=== PATIENT | female | born 1970 ===

== ENCOUNTER 2020-03-25 12:46 | Outpatient (RCR) | payer MEDICAID, SELFPAY | END 2020-05-05 16:30 | disposition home or self-care (01) | LOC: HO.WCC 12:46 | PROVIDERS: PCP Pediatrics; Visit Provider Surgery | DX: L02.612 Cutaneous abscess of left foot (principal); E11.9 Type 2 diabetes mellitus without complications; F17.200 Nicotine dependence, unspecified, uncomplicated; Z79.2 Long term (current) use of antibiotics | CPT/HCPCS: 10061; 99212; 99213 ==

== ENCOUNTER 2020-04-21 22:26 | Emergency (ER) | payer MEDICAID, SELFPAY ==
[2020-04-21 22:34] VITALS: BP 214/104; PULSE 108; RESP 22; TEMP 36.7; O2SAT 100; BMI 28.3
[2020-04-21 22:54] VITALS: BP 216/105; PULSE 114; RESP 18; TEMP 37.3; O2SAT 100
[2020-04-21 23:09] LABS: Glucose, Whole Blood 228 mg/dL (60-115)
[2020-04-22] VITALS: BP 182/85; PULSE 104; RESP 16; TEMP 37.7; O2SAT 100
--- NOTE | 2020-04-22 | ED.DENTAL ---
HPI - Dental/Oral General Chief complaint: Dental/Oral Stated complaint: JAW PAIN Time Seen by Provider: 04/21/20 23:50 Source: patient Mode of arrival: ambulatory Limitations: no limitations History of Present Illness HPI Narrative: 49-year-old female with widespread dental decay, patient is following with a dentist for complete extraction of her teeth because the COVID outbreak situation her surgical extraction got postponed it, patient started to have lower right side dental pain since yesterday that progressively getting worse all day today, patient describes the pain as severe /10, sharp, no colitis to the right lower show area, nothing alleviate or worsening the pain, no other associated symptoms in particular fever or chills. Patient has a history of hypertension does not recall her hypertension medication takes a medicine twice a day patient did not take her evening dose today, patient emergency department showed severe elevation of blood pressure. Related Data Previous Rx's Medication Instructions Recorded clindamycin HCl 150 mg PO TID 10 Days #30 cap 04/22/20 oxycodone 5 mg PO Q4H PRN #14 cap 04/22/20 Allergies Allergy/AdvReac Type Severity Reaction Status Date / Time Penicillins [PENICILLINS] Allergy Severe RASH Verified 04/21/20 22:53 amoxicillin [AMOXICILLIN] Allergy Intermediate HIVES Verified 04/21/20 22:53 Review of Systems Review of Systems: All other systems are reviewed and are negative Constitutional: Reports as per HPI and Reports no additional constitutional complaints Eyes: Reports as per HPI and Reports no additional eye complaints Reports system reviewed and no additional complaints, except as documented Cardiovascular: Reports as per HPI and Reports no additional cardiovascular complaints Respiratory: Reports as per HPI and Reports no additional respiratory complaints Gastrointestinal: Reports as per HPI and Reports no additional gastrointestinal complaints Genitourinary: Reports no additional female genitourinary complaints Musculoskeletal: Reports no additional musculoskeletal complaints Skin/Breast: Reports system reviewed and no additional complaints, except as docu Psychiatric: Reports no additional psychiatric complaints Endocrine: Reports no additional endocrine complaints Hematologic/Lymphatic: Reports no additional hematologic/lymphatic complaints Allergic/Immunologic: Reports no additional allergic/immunologic complaints Reports system reviewed and no additional complaints, except as documented and Reports Abnormal speech present [facility] Social History Social History Alcohol intake: current Smoking Status: Current every day smoker Use of substances other than those prescribed or required for medical reasons: No Advance Directives: No Advance Directives Information Provided: No Physical Exam Vital Signs: Vital Signs: Last Vital Signs Temp 99.8 F 04/22/20 00:00 Pulse 104 H 04/22/20 00:00 Resp 16 04/22/20 00:00 BP 182/85 H 04/22/20 00:00 Pulse Ox 100 04/22/20 00:00 Body Mass Index 28.3 Vital signs have been reviewed as normal and appeared to be correct. Severe hypertension. Tachycardia. Respiration rate normal. Temperature normal. Oxygen saturation normal. Appearance: Alert. Oriented X3. in acute distress due to severe dental pain Head: Normal external exam. Normocephalic. Atraumatic. No Witt signs noted. No raccoon eyes noted. Mouth exam: Widespread decay of teeth, pain over right lower 2nd molar tooth, no gum swelling but severe tenderness no abscesses appreciated, majority of her toes are extracted. Eyes: PERRLA. EOMI. Conjunctiva and sclera normal. Eyelids normal. ENT: EAC normal. TM's Normal. Pharynx normal. Uvula midline. Moist mucous membranes. No trismus noted. No drooling noted. No muffled voice noted. Neck: Normal inspection. Neck supple. FROM. No adenopathy. Thyroid Normal. No meningeal signs. No neck mass noted. CVS: Normal heart rate and rhythm. Heart sound normal. No murmurs noted. Pulses normal throughout. Respiratory: No respiratory distress. Painless inspiration. Breath sounds normal. No wheezes/rales/rhonchi noted. Chest nontender. No accessory muscle usage noted or decreased air movement noted. Abdomen: Soft and nontender. Bowel sounds normal in all 4 quadrants. No distention noted. No organomegaly noted. No visible injury noted. Back: No CVA tenderness. Full range of motion noted. Skin: Skin warm and dry. Normal skin color. Normal skin turgor. No rashes/lesions/lacerations noted. Extremities: No lower extremity edema. Extremities exhibit normal range of motion. Extremities nontender. Neuro: Oriented X 3. No motor deficit. No sensory deficit. Reflexes normal. Course Course Course Narrative: Dental pain causing severe discomfort of the patient and elevation for blood pressure. Will give pain medication and keep monitoring blood pressure. Will reassess. MDM - Dental/Oral MDM Narrative Medical decision making narrative: Assessment and plan. 49-year-old female presented with dental pain causing elevation of blood pressure (patient had a history of hypertension). Patient was given several doses of pain medication was partial control of her pain and blood pressure under better control. Patient was instructed to follow-up with her dentist ROSARIO. And to take her 2nd dose of blood pressure medication when she gets home, patient's will drive her home. Lab Data Labs: Lab Results 04/21/20 Range/Units 23:05 POC Glucose 228 H (60-115) mg/dL Discharge Plan Discharge Clinical Impression: Toothache, Dental caries Hypertension Qualifiers: Hypertension type: essential hypertension Qualified Code(s): I10 - Essential (primary) hypertension Patient Disposition: Home, Self-Care Instructions: Hypertension (ED), Toothache (ED), Gingivostomatitis (ED) Prescriptions: New oxycodone 5 mg capsule 5 mg PO Q4H PRN (Reason: pain) Qty: 14 RF: 0 clindamycin HCl 150 mg capsule 150 mg PO TID 10 Days Qty: 30 RF: 0
[2020-04-22] MEDS: Ibuprofen 800 MG TABLET PO (00:21)
[2020-04-22] MEDS: HYDROmorphone HCl 2 MG TABLET PO (00:22)
[2020-04-22] MEDS: HYDROmorphone HCl 2 MG/ML VIAL IM (01:19)
[2020-04-22] MEDS: Ketorolac Tromethamine 60 MG/2 ML VIAL IM (01:19)
== END 2020-04-22 01:20 | disposition home or self-care (01) ==
PROVIDERS: Emergency Provider Emergency Medicine
DX: K02.9 Dental caries, unspecified (principal); R68.84 Jaw pain; Z79.899 Other long term (current) drug therapy; Z20.828 Contact with and (suspected) exposure to other viral communicable diseases; F17.200 Nicotine dependence, unspecified, uncomplicated; Z71.6 Tobacco abuse counseling
CPT/HCPCS: 82947; 96372; 99284; J1170; J1885

== ENCOUNTER 2020-04-23 19:35 | Emergency (ER) | payer MEDICAID, SELFPAY ==
[2020-04-23 19:59] VITALS: BP 166/94; PULSE 134; RESP 24; TEMP 38.3; O2SAT 95; BMI 56.6
--- NOTE | 2020-04-23 20:14 | PC.NURSE ---
EKG obtained, charge operator informed of sepsis alert.
== END 2020-04-23 21:27 | disposition left against medical advice (07) ==
PROVIDERS: Emergency Provider Emergency Medicine
DX: R10.9 Unspecified abdominal pain (principal); R11.0 Nausea
CPT/HCPCS: 99282; 99283

== ENCOUNTER 2020-06-23 14:38 | Emergency (ER) | payer MEDICAID, SELFPAY ==
[2020-06-23 14:53] VITALS: BP 176/73; BP 176/90; PULSE 110; PULSE 95; RESP 22; TEMP 36.8; O2SAT 100; O2SAT 98; BMI 28.3
[2020-06-23 15:39] VITALS: BP 194/101; PULSE 101; RESP 15; TEMP 36.6; O2SAT 99
--- NOTE | 2020-06-23 15:51 | ECG_ITS ---
Test Reason : Chest pain Blood Pressure : / mmHG Vent. Rate : 103 BPM Atrial Rate : 103 BPM P-R Int : 146 ms QRS Dur : 084 ms QT Int : 390 ms P-R-T Axes : 075 053 076 degrees QTc Int : 510 ms Sinus tachycardia Otherwise normal ECG When compared with ECG of 23-APR-2020 20:11, ST no longer depressed in Inferior leads T wave inversion no longer evident in Inferior leads Referred By: Raphael Sneed Electronically Signed By:LUANN SALAZAR MD
--- NOTE | 2020-06-23 15:58 | ED.GENADULT ---
HPI - General Adult General Chief complaint: Abdominal Pain Stated complaint: urinary retention Time Seen by Provider: 06/23/20 15:49 Source: patient Mode of arrival: ambulatory Limitations: no limitations History of Present Illness HPI narrative: 49-year-old female who presents emergency department for evaluation of chest pain abdominal pain and urinary frequency. The patient states that she has been feeling sick for approximately 3 days. She states that she is having severe abdominal pain. She points to her lower abdomen asked to localize the pain. She describes the pain as a constant, cramping pain which is 10/10. She has had dysuria and urinary frequency. She states that she saw her doctor 2 days prior was started on antibiotic which improved her frequency and dysuria but did not change abdominal pain. She states she has had nausea and vomiting. She has vomited too many times to count. She is also complaining of chest pain which began today. She points to her mid sternum when asked to localize the pain the pain is a sharp pain which is worse with movement and with breathing. She denied shortness of breath, dyspnea on exertion, radiation of the pain to her neck, jaw or arms, diaphoresis or lightheadedness. Related Data Previous Rx's Medication Instructions Recorded clindamycin HCl 150 mg PO TID 10 Days #30 cap 04/22/20 oxycodone 5 mg PO Q4H PRN #14 cap 04/22/20 Allergies Allergy/AdvReac Type Severity Reaction Status Date / Time Penicillins [PENICILLINS] Allergy Severe RASH Verified 04/21/20 22:53 amoxicillin [AMOXICILLIN] Allergy Intermediate HIVES Verified 04/21/20 22:53 Review of Systems Review of Systems: Yes all other systems are reviewed and are negative Neurologic: Reports Abnormal speech present [facility] Past Medical History Medical History Diabetes Heart problem Hypertension Social History Social History Alcohol intake: never Smoking Status: Current every day smoker Smoked in Last 30 Days: Yes Use of substances other than those prescribed or required for medical reasons: No Advance Directives: No Advance Directives Information Provided: Yes Physical Exam Vital Signs: Vital Signs: Last Vital Signs Temp 98 F 06/23/20 15:39 Pulse 101 H 01/12/21 15:39 Resp 15 06/23/20 15:39 BP 194/101 H 06/23/20 15:39 Pulse Ox 99 06/23/20 15:39 Body Mass Index 28.3 Const: General: cooperative, in distress (Secondary to pain) moderate and anxious Orientation/consciousness: oriented to person and oriented to place Limitations: no limitations HENMT: Head: Yes normal to inspection, Yes normocephalic and Yes atraumatic Ears: external ears normal General nose exam: Normal external nose present Face and sinus: Yes normal facial exam Mouth: Normal oral and palatal mucosa present Throat: Yes posterior oropharynx normal Eyes: Periorbital: periorbital findings normal Eyelids: Yes eyelids normal Conjunctivae: conjunctivae normal Sclerae: sclerae normal Corneas: corneas normal Pupils: Equal, round and reactive pupils present Direct Ophthalmoscopy: normal light reflex Neck: Neck: Yes full ROM, Yes no lymphadenopathy, Yes no meningeal signs, Yes trachea midline and Yes supple Chest: Chest palpation & inspection: normal inspection of the chest and tenderness sternum (Moderate) Resp: Effort & Inspection: normal respiratory effort and able to speak in complete sentences Auscultation: clear to auscultation bilaterally Cardio: Rate: regular rate Rhythm: regular rhythm Heart sounds: S1 normal heart sound present, S2 normal heart sound present and no murmurs GI: Inspection: Yes normal to inspection Palpation (GI): Soft to palpation, Tenderness to palpation present (GI) in the LLQ (Mild), in the RLQ (Mild) and suprapubicly (Moderate), no guarding, not rigid and No hepatosplenomegaly present : General: Yes CVA tenderness on the left Back/Spine/Pelvis: Back: CVA tenderness Cervical Spine: normal cervical lordosis Thoracic/Lumbar Spine: thoracic and lumbar spine normal to inspection Skin: Lesions: no lesions Rashes: no rashes Wounds: no wounds Neuro: General: oriented to person, oriented to place and no meningeal signs Cranial nerves: Yes Equal, round and reactive pupils present Cognition (Neuro): normal cognition Speech: Abnormal speech present Motor exam (neuro): 5/5 motor strength present throughout Extrem: General: Yes normal to inspection and Yes full ROM Psych: Appearance: disheveled Mental Status: mental status grossly normal Speech and movement: Normal speech and movement present Affect: Anxious affect present Attitude: cooperative Thought process: Normal thought process present Thought content: Normal thought content present Course Course Course Narrative: 49-year-old female who presents the emergency department for evaluation of 3 days of abdominal pain, nausea, vomiting, frequency, urgency and dysuria. She is also complaining of chest pain x1 day. She states that she has been on antibiotics for 2 days and is approved for frequency and diarrhea but not her other symptoms. On presentation the patient was very anxious. The patient did have lower abdominal tenderness greater in the suprapubic area as well as left flank tenderness. Patient also had chest tenderness. I did order a cardiac and abdominal workup to include CT scan of abdomen pelvis without contrast. The patient was ordered to get Toradol 30 mg IV for her pain and Ativan 1 mg IV for her anxiety and her nausea. She was ordered to get normal saline x1 L. 1626: Patient's workup is pending the patient's care was transferred to my colleague, Dr. Burden. Discharge Plan Discharge Prescriptions: No Action oxycodone 5 mg capsule 5 mg PO Q4H PRN (Reason: pain) Qty: 14 RF: 0 clindamycin HCl 150 mg capsule 150 mg PO TID 10 Days Qty: 30 RF: 0
[2020-06-23 16:00] VITALS: BP 202/93; PULSE 102; RESP 17; TEMP 36.8; O2SAT 93
[2020-06-23] MEDS: Ketorolac Tromethamine 30 MG/ML VIAL IVPUSH (16:26)
[2020-06-23] MEDS: LORazepam 2 MG/ML VIAL 1 MG IVPUSH (16:27)
[2020-06-23] MEDS: 0.9 % Sodium Chloride 1,000 ML 999 ML IV (16:27)
[2020-06-23 17:00] LABS: Glucose Urine UA 500 MG/DL (NEG); Leukocyte Esterase Urine NEG (NEG); Nitrite Urine NEG (NEG); Specific Gravity - Urine 1.015 (1.005-1.025); Urine Blood 1+ (NEG); Urine Ketones >=80 MG/DL (NEG); Urine Protein 2+ MG/DL (NEG-TRACE)
[2020-06-23 17:02] LABS: Eosinophils Percent Auto 0.1 % (0-4); Hematocrit 39.1 % (37-47); Hemoglobin 12.5 g/dl (12.0-16.0); MANUAL DIFF FLAG SCAN; Mean Corpuscular Hemoglobin 25.8 pg (27.0-33.0); Mean Corpuscular Volume 80.6 fL (80-98); Monocytes Absolute Auto 0.6 X10*3/uL (0.1-1.2); Red Blood Count 4.85 X10*6/uL (4.20-5.50); SCAN SMEAR FLAG 1
[2020-06-23 17:03] LABS: Appearance Urine CLEAR; Color Urine YELLOW
[2020-06-23 17:04] LABS: Basophils Percent Auto 0.3 % (0-2); Imm Gran Abs Auto 0.03 X10*3/uL (0.00-0.03); Imm Gran Pct Auto 0.3 % (0.0-0.4); Lymphocytes Absolute Auto 0.6 X10*3/uL (1.2-4.9); Lymphocytes Percent Auto 6.3 % (20-40); Mean Platelet Volume 12.9 fL (9.4-12.3); Monocytes Percent Auto 6.3 % (2-11); Neutrophils Absolute Auto 7.5 X10*3/uL (2.0-8.3); Neutrophils Percent Auto 86.7 % (45-73); Red Cell Distribution Width 14.6 % (11.0-16.0); White Blood Count 8.7 X10*3/uL (4.8-10.8)
[2020-06-23 17:29] LABS: Bacteria Urine TRACE /LPF; Squamous Epithelial Cell Urine TRACE /LPF
[2020-06-23 17:32] LABS: Troponin-I High Sensitivity 7.7 ng/L (<3.5-17.0)
[2020-06-23 17:40] LABS: PLT ABN DIST 1
[2020-06-23 17:42] LABS: Alanine Aminotransferase 11 U/L (0-31); Albumin Level 3.5 g/dL (3.5-5.0); Alkaline Phosphatase 89 U/L (39-117); Anion Gap 20 (12-20); Aspartate Amino Transferase 8 U/L (5-31); Bilirubin Total 0.7 mg/dL (0.0-1.0); Blood Urea Nitrogen 13 mg/dL (9-16); Calcium 8.2 mg/dL (8.4-10.2); Carbon Dioxide 28 mmol/L (22-29); Chloride 96 mmol/L (96-108); Creatinine Clr Calc Pharmacy 76.3; Estimated Glomerular Filt Rate > 60; Glucose Random 477 mg/dL (60-115); Lipase < 4 U/L (8-78); Potassium 3.8 mmol/l (3.3-5.1); Sodium 140 mmol/L (135-145)
[2020-06-23 17:43] LABS: SLIDE REVIEW VERIFIED
--- NOTE | 2020-06-23 18:08 | XR_ITS ---
EXAMINATION: CHEST X-RAY AND CT ABDOMEN AND PELVIS WITHOUT CONTRAST. CLINICAL INFORMATION: Chest pain. Intractable vomiting and upper abdominal pain. COMPARISON: CT abdomen and pelvis 02/05/2020 TECHNIQUE: Chest one view. 5 mm thin axial and reformatted 3 mm thin axial images of abdomen and pelvis were obtained without contrast. DLP 611 FINDINGS: Chest: The lungs are well-expanded and clear of acute process. The heart size and pulmonary vascularity is normal. No gross bony abnormality seen. Abdomen and pelvis: The lung bases are clear. The heart size is normal. Punctate calcification is seen in left lateral breast. Visualized liver, spleen, pancreas and right adrenal gland appears unremarkable. There is a 1.3 cm left adrenal gland nodule measuring 7 Hounsfield units most likely benign adenoma. There are no radiopaque gallstones or wall thickening. Kidneys are normal size, shape and position. There are bilateral small nonobstructive radiopaque calculi seen in upper pole right kidney. There is mild right hydronephrosis no radiopaque urolith seen. There are several phleboliths visualized in the right lower pelvis. There is scattered stool and gas seen throughout the colon without any significant distention. The small bowel loops are normal caliber. Appendix is normal caliber. No free air or free fluid seen. Abdominal wall appears unremarkable. Imaging through the pelvis reveals anteverted uterus. Both ovaries appear unremarkable. There is no free fluid in the cul-de-sac. Bone windows reveal no lytic or sclerotic process. XR/XR chest 1V IMPRESSION: Right nephrolithiasis with mild right hydronephrosis but no obstructive etiology seen. A small stone is a possibility in the distal ureter but not visualized. A outpatient CT IVP study can be performed. Left adrenal benign adenoma. Several phleboliths in the right kidney pelvis. Normal appendix. Mild constipation.
[2020-06-23] MEDS: Insulin Lispro 100 UNIT/ML 3 ML VIAL 14 UNIT SUBCUT (18:20)
[2020-06-23] MEDS: 0.9 % Sodium Chloride 1,000 ML 999 ML IVCONT (18:20)
[2020-06-23] MEDS: ondansetron HCL 4 MG/2 ML VIAL IVPUSH (18:53)
--- NOTE | 2020-06-23 19:09 | ED.ABDPAIN ---
HPI - Abdominal Pain General Chief Complaint: Abdominal Pain Stated Complaint: urinary retention Time Seen by Provider: 06/23/20 15:49 History of Present Illness Pertinent past history: past UTI Radiation: back Related Data Previous Rx's Medication Instructions Recorded clindamycin HCl 150 mg PO TID 10 Days #30 cap 04/22/20 oxycodone 5 mg PO Q4H PRN #14 cap 04/22/20 Allergies Allergy/AdvReac Type Severity Reaction Status Date / Time Penicillins [PENICILLINS] Allergy Severe RASH Verified 04/21/20 22:53 amoxicillin [AMOXICILLIN] Allergy Intermediate HIVES Verified 04/21/20 22:53 Physical Exam Vital Signs: Vital Signs: Last Vital Signs Temp 98.2 F 06/23/20 16:00 Pulse 102 H 06/23/20 16:00 Resp 17 06/23/20 16:00 BP 202/93 H 06/23/20 16:00 Pulse Ox 93 06/23/20 16:00 Body Mass Index 28.3 Appearance: Alert. Oriented X3. In moderate distress. Eyes: Pupils equal, round and reactive to light. ENT: Pharynx normal. Neck: Normal inspection. Neck supple. CVS: Normal heart rate and rhythm. Pulses normal. Respiratory: No respiratory distress. Breath sounds normal. Abdomen: Soft deep tenderness left lower quadrant, Bowel sounds are present, no mass palpable, no CVA tenderness Skin: Skin warm and dry. Normal skin color. Normal skin turgor. Extremities: No lower extremity edema. Neuro: Oriented X 3. No motor deficit. No sensory deficit. MDM - Abdominal Pain Lab Data Result diagrams: 06/23/20 16:45 06/23/20 16:45 Labs: Lab Results 06/23/20 06/23/20 06/23/20 Range/Units 16:45 16:45 16:45 WBC 8.7 (4.8-10.8) X10*3/uL RBC 4.85 (4.20-5.50) X10*6/uL Hgb 12.5 (12.0-16.0) g/dl Hct 39.1 (37-47) % MCV 80.6 (80-98) fL MCH 25.8 L (27.0-33.0) pg MCHC 32.0 (31.0-35.0) g/dl RDW 14.6 (11.0-16.0) % Plt Count TNP MPV 12.9 H (9.4-12.3) fL Immature Gran % (Auto) 0.3 (0.0-0.4) % Neut % (Auto) 86.7 H (45-73) % Lymph % (Auto) 6.3 L (20-40) % [place] % (Auto) 6.3 (2-11) % Eos % (Auto) 0.1 (0-4) % Baso % (Auto) 0.3 (0-2) % Lymph # (Auto) 0.6 L (1.2-4.9) X10*3/uL [place] # (Auto) 0.6 (0.1-1.2) X10*3/uL Eos # (Auto) 0.0 (0.0-0.4) X10*3/uL Baso # (Auto) 0.0 (0.0-0.2) X10*3/uL Abs Immat Gran (auto) 0.03 (0.00-0.03) X10*3/uL Absolute Neuts (auto) 7.5 (2.0-8.3) X10*3/uL Absolute Nucleated RBC 0.000 (0.0-0.012) X10*3/uL Nucleated RBC % (auto) 0.0 (0.0-0.2) /100WBC Smear Tech's Comments VERIFIED Sodium 140 (135-145) mmol/L Potassium 3.8 (3.3-5.1) mmol/l Chloride 96 (96-108) mmol/L Carbon Dioxide 28 (22-29) mmol/L Anion Gap 20 (12-20) BUN 13 (9-16) mg/dL Creatinine 0.86 (0.5-1.4) mg/dL Estim Creat Clear Calc 76.3 Estimated GFR > 60 POC Glucose (60-115) mg/dL Random Glucose 477 H* (60-115) mg/dL Calcium 8.2 L (8.4-10.2) mg/dL Total Bilirubin 0.7 (0.0-1.0) mg/dL AST 8 (5-31) U/L ALT 11 (0-31) U/L Alkaline Phosphatase 89 (39-117) U/L Troponin I High Sens 7.7 (<3.5-17.0) ng/L Total Protein 6.0 L (6.5-8.0) g/dL Albumin 3.5 (3.5-5.0) g/dL Lipase < 4 L (8-78) U/L Urine Color Urine Appearance Urine pH (5.0-8.0) Ur Specific [place] (1.005-1.025) Urine Protein (NEG-TRACE) MG/DL Urine Glucose (UA) (NEG) MG/DL Urine Ketones (NEG) MG/DL Urine Blood (NEG) Urine Nitrite (NEG) Ur Leukocyte Esterase (NEG) Urine RBC (0) /HPF Urine WBC (0-4) /HPF Ur Squamous Epith Cells /LPF Urine Bacteria /LPF Urine Yeast /HPF 06/23/20 06/23/20 Range/Units 16:45 19:19 WBC (4.8-10.8) X10*3/uL RBC (4.20-5.50) X10*6/uL Hgb (12.0-16.0) g/dl Hct (37-47) % MCV (80-98) fL MCH (27.0-33.0) pg MCHC (31.0-35.0) g/dl RDW (11.0-16.0) % Plt Count MPV (9.4-12.3) fL Immature Gran % (Auto) (0.0-0.4) % Neut % (Auto) (45-73) % Lymph % (Auto) (20-40) % [place] % (Auto) (2-11) % Eos % (Auto) (0-4) % Baso % (Auto) (0-2) % Lymph # (Auto) (1.2-4.9) X10*3/uL [place] # (Auto) (0.1-1.2) X10*3/uL Eos # (Auto) (0.0-0.4) X10*3/uL Baso # (Auto) (0.0-0.2) X10*3/uL Abs Immat Gran (auto) (0.00-0.03) X10*3/uL Absolute Neuts (auto) (2.0-8.3) X10*3/uL Absolute Nucleated RBC (0.0-0.012) X10*3/uL Nucleated RBC % (auto) (0.0-0.2) /100WBC Smear Tech's Comments Sodium (135-145) mmol/L Potassium (3.3-5.1) mmol/l Chloride (96-108) mmol/L Carbon Dioxide (22-29) mmol/L Anion Gap (12-20) BUN (9-16) mg/dL Creatinine (0.5-1.4) mg/dL Estim Creat Clear Calc Estimated GFR POC Glucose 332 H (60-115) mg/dL Random Glucose (60-115) mg/dL Calcium (8.4-10.2) mg/dL Total Bilirubin (0.0-1.0) mg/dL AST (5-31) U/L ALT (0-31) U/L Alkaline Phosphatase (39-117) U/L Troponin I High Sens (<3.5-17.0) ng/L Total Protein (6.5-8.0) g/dL Albumin (3.5-5.0) g/dL Lipase (8-78) U/L Urine Color YELLOW Urine Appearance CLEAR Urine pH 6.0 (5.0-8.0) Ur Specific [place] 1.015 (1.005-1.025) Urine Protein 2+ H (NEG-TRACE) MG/DL Urine Glucose (UA) 500 H (NEG) MG/DL Urine Ketones >=80 (NEG) MG/DL Urine Blood 1+ H (NEG) Urine Nitrite NEG (NEG) Ur Leukocyte Esterase NEG (NEG) Urine RBC 1-4 (0) /HPF Urine WBC 1-4 (0-4) /HPF Ur Squamous Epith Cells TRACE /LPF Urine Bacteria TRACE /LPF Urine Yeast TRACE /HPF Discharge Plan Discharge Prescriptions: No Action oxycodone 5 mg capsule 5 mg PO Q4H PRN (Reason: pain) Qty: 14 RF: 0 clindamycin HCl 150 mg capsule 150 mg PO TID 10 Days Qty: 30 RF: 0 PMFSH Past Medical History Medical History Diabetes Heart problem Hypertension Social History Social History Alcohol intake: never Smoking Status: Current every day smoker Smoked in Last 30 Days: Yes Use of substances other than those prescribed or required for medical reasons: No Advance Directives: No Advance Directives Information Provided: Yes
[2020-06-23 19:22] LABS: Glucose, Whole Blood 332 mg/dL (60-115)
--- NOTE | 2020-06-23 19:34 | CT_ITS ---
EXAMINATION: CHEST X-RAY AND CT ABDOMEN AND PELVIS WITHOUT CONTRAST. CLINICAL INFORMATION: Chest pain. Intractable vomiting and upper abdominal pain. COMPARISON: CT abdomen and pelvis 02/05/2020 TECHNIQUE: Chest one view. 5 mm thin axial and reformatted 3 mm thin axial images of abdomen and pelvis were obtained without contrast. DLP 611 FINDINGS: Chest: The lungs are well-expanded and clear of acute process. The heart size and pulmonary vascularity is normal. No gross bony abnormality seen. Abdomen and pelvis: The lung bases are clear. The heart size is normal. Punctate calcification is seen in left lateral breast. Visualized liver, spleen, pancreas and right adrenal gland appears unremarkable. There is a 1.3 cm left adrenal gland nodule measuring 7 Hounsfield units most likely benign adenoma. There are no radiopaque gallstones or wall thickening. Kidneys are normal size, shape and position. There are bilateral small nonobstructive radiopaque calculi seen in upper pole right kidney. There is mild right hydronephrosis no radiopaque urolith seen. There are several phleboliths visualized in the right lower pelvis. There is scattered stool and gas seen throughout the colon without any significant distention. The small bowel loops are normal caliber. Appendix is normal caliber. No free air or free fluid seen. Abdominal wall appears unremarkable. Imaging through the pelvis reveals anteverted uterus. Both ovaries appear unremarkable. There is no free fluid in the cul-de-sac. Bone windows reveal no lytic or sclerotic process. CT/CT abdomen pelvis wo con IMPRESSION: Right nephrolithiasis with mild right hydronephrosis but no obstructive etiology seen. A small stone is a possibility in the distal ureter but not visualized. A outpatient CT IVP study can be performed. Left adrenal benign adenoma. Several phleboliths in the right kidney pelvis. Normal appendix. Mild constipation.
[2020-06-23] MEDS: Insulin Lispro 100 UNIT/ML 3 ML VIAL 10 UNIT SUBCUT (19:36)
[2020-06-23] MEDS: Famotidine/PF 20 MG/2 ML VIAL IVPUSH (19:44)
[2020-06-23] MEDS: Prochlorperazine Edisylate 10 MG/2 ML VIAL IVPUSH (19:44)
[2020-06-23] MEDS: Magnesium Hydrox/Alum Hydrox 30 ML ORAL.SUSP PO (21:28)
[2020-06-23 21:45] LABS: Glucose, Whole Blood 275 mg/dL (60-115)
== END 2020-06-23 22:12 | disposition home or self-care (01) ==
PROVIDERS: Emergency Provider Emergency Medicine Emergency Medical Services
DX: R33.9 Retention of urine, unspecified (principal); R07.89 Other chest pain; R35.0 Frequency of micturition; R10.9 Unspecified abdominal pain; R11.2 Nausea with vomiting, unspecified; F17.200 Nicotine dependence, unspecified, uncomplicated; Z71.6 Tobacco abuse counseling; Z79.899 Other long term (current) drug therapy
CPT/HCPCS: 36415; 71045; 74176; 80053; 81001; 81003; 82947; 83690; 84484; 85025; 93005; 96361; 96374; 96375; 99284; J1885; J2060; J2405

== ENCOUNTER 2020-06-26 11:34 | Emergency (ER) | payer MEDICAID, SELFPAY ==
[2020-06-26 11:44] VITALS: BP 164/78; PULSE 94; RESP 18; TEMP 36.6; O2SAT 100; BMI 28.3
== END 2020-06-26 15:14 | disposition left against medical advice (07) ==
LOC: HO.ED 15:13
PROVIDERS: Emergency Provider Emergency Medicine
DX: R10.10 Upper abdominal pain, unspecified (principal); R11.2 Nausea with vomiting, unspecified
CPT/HCPCS: 99281; 99282

== ENCOUNTER 2020-07-01 19:58 | Emergency (ER) | payer MEDICAID, SELFPAY ==
[2020-07-01 19:59] VITALS: BP 176/89; PULSE 105; RESP 18; TEMP 36.5; O2SAT 100; BMI 29.2
--- NOTE | 2020-07-01 20:43 | ED.ABDPAIN ---
HPI - Abdominal Pain General Chief Complaint: Nausea/Vomiting/Diarrhea Stated Complaint: vomiting Time Seen by Provider: 07/01/20 20:34 Source: patient Mode of arrival: EMS Limitations: no limitations History of Present Illness HPI narrative: Patient diabetes with gastroparesis last time she was and came here was on 06/[address] scan abdomen which was negative comes here again for vomiting for last few days got worse today vomited about 10 times in the last few vomitus had some blood streaks patient was taking Macrobid for questionable UTI given by PCP and whenever she takes a medicine she started throwing up although urine analysis was negative MD elicited complaint: abdominal pain Pertinent past history: other (Gastroparesis) Onset (ago): week(s) (1) Pain Consistency: intermittent Location: epigastric Severity: mild Quality: dull Radiation: none Migration to: no migration Exacerbating factors: eating Relieving factors: nothing Associated symptoms: nausea and vomiting Related Data Previous Rx's Medication Instructions Recorded clindamycin HCl 150 mg PO TID 10 Days #30 cap 04/22/20 oxycodone 5 mg PO Q4H PRN #14 cap 04/22/20 metoclopramide HCl [Reglan] 10 mg PO Q6H PRN #60 tab 06/23/20 pantoprazole [Protonix] 40 mg PO DAILY #30 tab 06/23/20 Allergies Allergy/AdvReac Type Severity Reaction Status Date / Time Penicillins [PENICILLINS] Allergy Severe RASH Verified 04/21/20 22:53 amoxicillin [AMOXICILLIN] Allergy Intermediate HIVES Verified 04/21/20 22:53 Review of Systems Review of Systems Constitutional : No Weight loss, No Fever, No Chills ENT/Mouth : No sore throat, No Rhinorrhea Eyes: No Eye Pain, No Swelling Cardiovascular : No Chest Pain, no palpitations Respiratory : No Cough, No Sputum, no shortness of breath Gastrointestinal : + Nausea, + Vomiting, No Diarrhea, + abdominal Pain, no black stools Genitourinary : No Dysuria, No Urinary Frequency Musculoskeletal : No joint pain, No Myalgias, No Joint Swelling Skin : No Skin Lesions, No rash Neuro : No Weakness, No Numbness, No Dizziness, No Headache Psych : No Anxiety/Panic, No Depression Heme/Lymph: No Bruising, No Lymphadenopathy Endocrine : No Polyuria, No Polydipsia All other systems reviewed and are negative Physical Exam Vital Signs: Vital Signs: Last Vital Signs Temp 98.1 F 07/01/20 22:37 Pulse 101 H 07/01/20 22:37 Resp 18 07/01/20 22:37 BP 181/80 H 07/01/20 22:37 Pulse Ox 96 07/01/20 22:37 Body Mass Index 29.2 Appearance: Alert. Oriented X3. No acute distress. Eyes: Pupils equal, round and reactive to light. ENT: Pharynx normal. Neck: Normal inspection. Neck supple. CVS: Normal heart rate and rhythm. Pulses normal. Respiratory: No respiratory distress. Breath sounds normal. Abdomen: Soft mild epigastric tenderness, no rebound tenderness and no guarding. Bowel sounds are present, no mass palpable, no CVA tenderness Skin: Skin warm and dry. Normal skin color. Normal skin turgor. Extremities: No lower extremity edema. Neuro: Oriented X 3. No motor deficit. No sensory deficit. MDM - Abdominal Pain MDM Narrative Medical decision making narrative: Patient with diabetes gastroparesis came with vomiting for last few days taking Reglan were not working also she took Macrobid which causing or vomiting. On arrival patient's blood sugar was 444 as she missed her insulin today after insulin patient's blood sugar was 268 patient feeling much better now taking p.o. fluids will discharge patient home to be followed up with race relations professor Differential Diagnosis Differential diagnosis: Likely abdominal pain and gastritis Medical Records Attestation: I reviewed the patient's medical records. Lab Data Attestation: I reviewed the patient's lab results. Result diagrams: 07/01/20 21:14 07/01/20 21:14 Labs: Lab Results 07/01/20 07/01/20 07/01/20 Range/Units 21:14 21:14 21:14 WBC 8.8 (4.8-10.8) X10*3/uL RBC 4.50 (4.20-5.50) X10*6/uL Hgb 11.4 L (12.0-16.0) g/dl Hct 36.0 L (37-47) % MCV 80.0 (80-98) fL MCH 25.3 L (27.0-33.0) pg MCHC 31.7 (31.0-35.0) g/dl RDW 14.4 (11.0-16.0) % Plt Count 254 (160-400) X10*3/uL MPV 12.4 H (9.4-12.3) fL Immature Gran % (Auto) 0.5 H (0.0-0.4) % Neut % (Auto) 81.3 H (45-73) % Lymph % (Auto) 12.4 L (20-40) % [place] % (Auto) 5.0 (2-11) % Eos % (Auto) 0.6 (0-4) % Baso % (Auto) 0.2 (0-2) % Lymph # (Auto) 1.1 L (1.2-4.9) X10*3/uL [place] # (Auto) 0.4 (0.1-1.2) X10*3/uL Eos # (Auto) 0.1 (0.0-0.4) X10*3/uL Baso # (Auto) 0.0 (0.0-0.2) X10*3/uL Abs Immat Gran (auto) 0.04 H (0.00-0.03) X10*3/uL Absolute Neuts (auto) 7.2 (2.0-8.3) X10*3/uL Absolute Nucleated RBC 0.000 (0.0-0.012) X10*3/uL Nucleated RBC % (auto) 0.0 (0.0-0.2) /100WBC Sodium 141 (135-145) mmol/L Potassium 3.9 (3.3-5.1) mmol/l Chloride 99 (96-108) mmol/L Carbon Dioxide 32 H (22-29) mmol/L Anion Gap 14 (12-20) BUN 9 (9-16) mg/dL Creatinine 0.77 (0.5-1.4) mg/dL Estim Creat Clear Calc 86.5 Estimated GFR > 60 POC Glucose (60-115) mg/dL Random Glucose 444 H* (60-115) mg/dL Calcium 8.6 (8.4-10.2) mg/dL Total Bilirubin 0.3 (0.0-1.0) mg/dL Direct Bilirubin < 0.2 (0.0-0.5) mg/dL AST 10 (5-31) U/L ALT 24 (0-31) U/L Alkaline Phosphatase 92 (39-117) U/L Total Protein 6.0 L (6.5-8.0) g/dL Albumin 3.3 L (3.5-5.0) g/dL Lipase 23 (8-78) U/L Urine Color YELLOW Urine Appearance HAZY Urine pH 6.0 (5.0-8.0) Ur Specific [place] 1.025 (1.005-1.025) Urine Protein 2+ H (NEG-TRACE) MG/DL Urine Glucose (UA) >=1000 H (NEG) MG/DL Urine Ketones 5 (NEG) MG/DL Urine Blood 3+ H (NEG) Urine Nitrite NEG (NEG) Ur Leukocyte Esterase NEG (NEG) Urine RBC 1-4 (0) /HPF Urine WBC 5-9 H (0-4) /HPF Ur Squamous Epith Cells TRACE /LPF Urine Bacteria 3+ /LPF 07/01/20 Range/Units 23:36 WBC (4.8-10.8) X10*3/uL RBC (4.20-5.50) X10*6/uL Hgb (12.0-16.0) g/dl Hct (37-47) % MCV (80-98) fL MCH (27.0-33.0) pg MCHC (31.0-35.0) g/dl RDW (11.0-16.0) % Plt Count (160-400) X10*3/uL MPV (9.4-12.3) fL Immature Gran % (Auto) (0.0-0.4) % Neut % (Auto) (45-73) % Lymph % (Auto) (20-40) % [place] % (Auto) (2-11) % Eos % (Auto) (0-4) % Baso % (Auto) (0-2) % Lymph # (Auto) (1.2-4.9) X10*3/uL [place] # (Auto) (0.1-1.2) X10*3/uL Eos # (Auto) (0.0-0.4) X10*3/uL Baso # (Auto) (0.0-0.2) X10*3/uL Abs Immat Gran (auto) (0.00-0.03) X10*3/uL Absolute Neuts (auto) (2.0-8.3) X10*3/uL Absolute Nucleated RBC (0.0-0.012) X10*3/uL Nucleated RBC % (auto) (0.0-0.2) /100WBC Sodium (135-145) mmol/L Potassium (3.3-5.1) mmol/l Chloride (96-108) mmol/L Carbon Dioxide (22-29) mmol/L Anion Gap (12-20) BUN (9-16) mg/dL Creatinine (0.5-1.4) mg/dL Estim Creat Clear Calc Estimated GFR POC Glucose 268 H (60-115) mg/dL Random Glucose (60-115) mg/dL Calcium (8.4-10.2) mg/dL Total Bilirubin (0.0-1.0) mg/dL Direct Bilirubin (0.0-0.5) mg/dL AST (5-31) U/L ALT (0-31) U/L Alkaline Phosphatase (39-117) U/L Total Protein (6.5-8.0) g/dL Albumin (3.5-5.0) g/dL Lipase (8-78) U/L Urine Color Urine Appearance Urine pH (5.0-8.0) Ur Specific [place] (1.005-1.025) Urine Protein (NEG-TRACE) MG/DL Urine Glucose (UA) (NEG) MG/DL Urine Ketones (NEG) MG/DL Urine Blood (NEG) Urine Nitrite (NEG) Ur Leukocyte Esterase (NEG) Urine RBC (0) /HPF Urine WBC (0-4) /HPF Ur Squamous Epith Cells /LPF Urine Bacteria /LPF Discharge Plan Discharge Clinical Impression: Diabetes mellitus with gastroparesis Vomiting Qualifiers: Vomiting type: unspecified Vomiting Intractability: non-intractable Nausea presence: with nausea Qualified Code(s): R11.2 - Nausea with vomiting, unspecified Patient Disposition: Home, Self-Care Instructions: Diabetic Gastroparesis (DC) Additional Instructions: Continue to take Reglan 1 hour prior you have your meals. Continue to take Protonix. Have small meals avoid fried and greasy food Follow-up with race relations professor Prescriptions: No Action oxycodone 5 mg capsule 5 mg PO Q4H PRN (Reason: pain) Qty: 14 RF: 0 clindamycin HCl 150 mg capsule 150 mg PO TID 10 Days Qty: 30 RF: 0 metoclopramide HCl [Reglan] 10 mg tablet 10 mg PO Q6H PRN (Reason: nausea and vomiting) Qty: 60 RF: 0 pantoprazole [Protonix] 40 mg tablet,delayed release (DR/EC) 40 mg PO DAILY Qty: 30 RF: 0 Referrals: Mine Heath MD [Physician] - 1 week [facility] Past Medical History Medical History Diabetes Heart problem Hypertension Social History Social History Alcohol intake: never Smoking Status: Current every day smoker Advance Directives: No Advance Directives Information Provided: No
[2020-07-01 21:18] LABS: MANUAL DIFF FLAG NO
[2020-07-01 21:19] LABS: Basophils Percent Auto 0.2 % (0-2); Eosinophils Absolute Auto 0.1 X10*3/uL (0.0-0.4); Eosinophils Percent Auto 0.6 % (0-4); Hemoglobin 11.4 g/dl (12.0-16.0); Imm Gran Abs Auto 0.04 X10*3/uL (0.00-0.03); Imm Gran Pct Auto 0.5 % (0.0-0.4); Lymphocytes Absolute Auto 1.1 X10*3/uL (1.2-4.9); Lymphocytes Percent Auto 12.4 % (20-40); Mean Corpuscular HGB Conc 31.7 g/dl (31.0-35.0); Mean Corpuscular Hemoglobin 25.3 pg (27.0-33.0); Mean Platelet Volume 12.4 fL (9.4-12.3); Monocytes Absolute Auto 0.4 X10*3/uL (0.1-1.2); Neutrophils Absolute Auto 7.2 X10*3/uL (2.0-8.3); Neutrophils Percent Auto 81.3 % (45-73); Platelet Count 254 X10*3/uL (160-400); Red Cell Distribution Width 14.4 % (11.0-16.0); White Blood Count 8.8 X10*3/uL (4.8-10.8)
[2020-07-01] MEDS: ondansetron HCL 4 MG/2 ML VIAL IVPUSH (21:19)
[2020-07-01] MEDS: 0.9 % Sodium Chloride 1,000 ML 999 ML IVCONT ×2 (21:19→22:40)
[2020-07-01] MEDS: Famotidine/PF 20 MG/2 ML VIAL IVPUSH (21:19)
[2020-07-01 21:21] LABS: Glucose Urine UA >=1000 MG/DL (NEG); Leukocyte Esterase Urine NEG (NEG); Nitrite Urine NEG (NEG); Specific Gravity - Urine 1.025 (1.005-1.025); Urine Blood 3+ (NEG); Urine Ketones 5 MG/DL (NEG); Urine Protein 2+ MG/DL (NEG-TRACE)
[2020-07-01 21:23] LABS: Appearance Urine HAZY; Color Urine YELLOW
[2020-07-01 21:33] LABS: Bacteria Urine 3+ /LPF; Squamous Epithelial Cell Urine TRACE /LPF; UACC CULT YES
[2020-07-01 22:04] LABS: Alanine Aminotransferase 24 U/L (0-31); Albumin Level 3.3 g/dL (3.5-5.0); Alkaline Phosphatase 92 U/L (39-117); Anion Gap 14 (12-20); Aspartate Amino Transferase 10 U/L (5-31); Bilirubin Direct < 0.2 mg/dL (0.0-0.5); Bilirubin Total 0.3 mg/dL (0.0-1.0); Blood Urea Nitrogen 9 mg/dL (9-16); Calcium 8.6 mg/dL (8.4-10.2); Carbon Dioxide 32 mmol/L (22-29); Chloride 99 mmol/L (96-108); Creatinine Clr Calc Pharmacy 86.5; Estimated Glomerular Filt Rate > 60; Glucose Random 444 mg/dL (60-115); Lipase 23 U/L (8-78); Potassium 3.9 mmol/l (3.3-5.1); Sodium 141 mmol/L (135-145)
[2020-07-01 22:37] VITALS: BP 181/80; PULSE 101; RESP 18; TEMP 36.7; O2SAT 96
[2020-07-01] MEDS: Insulin Lispro 100 UNIT/ML 3 ML VIAL 14 UNIT SUBCUT (22:41)
--- NOTE | 2020-07-01 22:59 | PC.NURSE ---
pt requested water, started with ice chips.
[2020-07-01 23:41] LABS: Glucose, Whole Blood 268 mg/dL (60-115)
[2020-07-02] VITALS: BP 176/84; PULSE 102; RESP 18; TEMP 36.6; O2SAT 97
== END 2020-07-02 00:19 | disposition home or self-care (01) ==
PROVIDERS: Emergency Provider Internal Medicine
DX: E11.43 Type 2 diabetes mellitus with diabetic autonomic (poly)neuropathy (principal); K31.84 Gastroparesis; R11.2 Nausea with vomiting, unspecified; Z79.899 Other long term (current) drug therapy
CPT/HCPCS: 36415; 80048; 80076; 81001; 82947; 83690; 85025; 87086; 87088; 87186; 96361; 96374; 96375; 99283; 99284; J2405

== ENCOUNTER 2020-08-16 16:42 | Emergency (ER) | payer MEDICAID, SELFPAY ==
[2020-08-16 17:02] VITALS: BP 150/67; PULSE 95; RESP 20; TEMP 36.8; O2SAT 99; BMI 26.5
--- NOTE | 2020-08-16 17:23 | ED.BACK ---
HPI - Back Pain/Injury General Chief Complaint: Back Pain/Injury Stated Complaint: back pain Time Seen by Provider: 08/16/20 17:22 Source: patient Mode of arrival: ambulatory Limitations: no limitations History of Present Illness HPI Narrative: Pleasant 50-year-old female with history of diabetes and hypertension presenting complaint of left-sided upper back pain which is described as ?spasm? of the upper back has felt stiff in the side for the past several days woke up like this and hurts now every time she moves. Denies any chest pain, radiation of the pain to neck or mid back. No fever or chills. No recent illness. Onset (ago): day(s) Timing: constant Severity: moderate Similar Symptoms Previously: Yes Quality: aching Location: thoracic spine Radiation: none Exacerbating factors: movement Relieving factors: immobilization Associated symptoms: denies other symptoms Related Data Previous Rx's Medication Instructions Recorded clindamycin HCl 150 mg PO TID 10 Days #30 cap 04/22/20 oxycodone 5 mg PO Q4H PRN #14 cap 04/22/20 metoclopramide HCl [Reglan] 10 mg PO Q6H PRN #60 tab 06/23/20 pantoprazole [Protonix] 40 mg PO DAILY #30 tab 06/23/20 levofloxacin 750 mg PO DAILY 7 Days #7 tab 07/05/20 ondansetron HCl [Zofran] 4 mg PO Q8H PRN #10 tab 07/05/20 cyclobenzaprine 10 mg PO TID PRN #20 tab 08/16/20 ibuprofen 800 mg PO Q8H PRN #21 tab 08/16/20 Allergies Allergy/AdvReac Type Severity Reaction Status Date / Time Penicillins [PENICILLINS] Allergy Severe RASH Verified 04/21/20 22:53 amoxicillin [AMOXICILLIN] Allergy Intermediate HIVES Verified 04/21/20 22:53 Review of Systems Review of Systems: Constitutional: No Weight loss, No Fever, No Chills, No Night Sweats, No Fatigue, No Malaise ENT/Mouth: No Hearing loss, No Ear Pain, No Nasal Congestion, No Sinus Pain, No Hoarseness, No sore throat, No Rhinorrhea, No Swallowing Difficulty Eyes: No Eye Pain, No Swelling, No Redness, No Foreign Body, No Discharge, No Vision Changes Cardiovascular: No Chest Pain, No SOB, No Dyspnea on Exertion, No Orthopnea, No Edema, No Palpitations Respiratory: No Cough, No Sputum, No Wheezing, No Dyspnea Gastrointestinal: No Nausea, No Vomiting, No Diarrhea, No Constipation, No abdominal Pain, No Hematochezia, No Melena Genitourinary: No Dysuria, No Urinary Frequency, No Hematuria, No Urinary Incontinence, No Urgency, No Flank Pain, No Urinary Flow Changes, No Hesitancy Musculoskeletal: No joint pain, No Myalgias, No Joint Swelling, as noted HPI. Skin: No Skin Lesions, No rash Neuro: No Weakness, No Numbness, No Paresthesias, No Loss of Consciousness, No Dizziness, No Headache Psych: No Social Issues, Heme/Lymph: No Bruising, No Bleeding,No Lymphadenopathy Endocrine: No Polyuria, No Polydipsia, No Temperature Intolerance Yes all other systems are reviewed and are negative [facility], [facility] Past Medical History Medical History (Updated 08/16/20 @ 17:32 by Heri Darby NP) Asthma COPD (chronic obstructive pulmonary disease) Diabetes Heart problem Hypertension Social History Social History Alcohol intake: never Smoking Status: Current every day smoker Use of substances other than those prescribed or required for medical reasons: No Advance Directives: No Advance Directives Information Provided: No Physical Exam Vital Signs: Vital Signs: Last Vital Signs Temp 98.2 F 08/16/20 17:02 Pulse 95 08/16/20 17:02 Resp 20 08/16/20 17:02 BP 150/67 H 08/16/20 17:02 Pulse Ox 99 08/16/20 17:02 Body Mass Index 26.5 Reviewed Const: General: cooperative and healthy appearing; No acute distress or intoxicated appearing Nutritional Appearance: average body habitus Orientation/consciousness: patient oriented x3 HENMT: Head: Yes normal to inspection Ears: hearing grossly normal bilaterally Eyes: General: appearance normal, both eyes and all related structures Visual Turcios: normal visual turcios by confrontation Neck: Neck: Yes normal visual inspection, No positive Brudzinski's sign, No positive Kernig's sign and No tender Thyroid: Thyroid normal Chest: Chest palpation & inspection: normal inspection of the chest Resp: Effort & Inspection: normal respiratory effort Auscultation: clear to auscultation bilaterally Cardio: Jugular venous distension: no JVD Rhythm: regular rhythm Heart sounds: S1 normal heart sound present and S2 normal heart sound present GI: Inspection: Yes normal to inspection Palpation (GI): Soft to palpation Percussion: Yes normal to percussion Auscultation: normal bowel sounds : General: Yes no CVA tenderness Back/Spine/Pelvis: Back: no CVA tenderness Thoracic/Lumbar Spine: paraspinal muscle tenderness (Midthoracic region to the left scapula) on the left and other (Pain with palpation over the paraspinous muscle. No midline, no step-off.) Skin: General skin exam: no rashes or lesions noted Neuro: General: patient oriented x3 Extrem: General: Yes normal to inspection Course Course Course Narrative: Pinpoint pain over the left mid upper thoracic paraspinous muscle region and she is stiff folding in favoring that side. No midline tender palpation or signs or symptoms to suggest systemic infection. Feels better when massaging it. There is no rash or indurated area or bulging. Will start her on short course of NSAIDs, muscle relaxants and discharged with clear return follow-up instructions. She is agreeable feels comfortable plan. Stable for discharge. Discharge Plan Discharge Clinical Impression: Thoracic back pain Patient Disposition: Home, Self-Care Instructions: Muscle Spasm (ED) Additional Instructions: Warm compresses Gentle stretching Taking medications as prescribed Do not drink alcohol or drive while taking muscle relaxant (cyclobenzaprine) Return if any concerns or worsening symptoms or presentation of chest pain, shortness of breath, abdominal pain, nausea, vomiting, fever or lower extremity weakness Follow-up with her primary care doctor Thank you Prescriptions: New cyclobenzaprine 10 mg tablet 10 mg PO TID PRN (Reason: muscle spasm) Qty: 20 RF: 0 ibuprofen 800 mg tablet 800 mg PO Q8H PRN (Reason: pain) Qty: 21 RF: 0 No Action oxycodone 5 mg capsule 5 mg PO Q4H PRN (Reason: pain) Qty: 14 RF: 0 clindamycin HCl 150 mg capsule 150 mg PO TID 10 Days Qty: 30 RF: 0 metoclopramide HCl [Reglan] 10 mg tablet 10 mg PO Q6H PRN (Reason: nausea and vomiting) Qty: 60 RF: 0 pantoprazole [Protonix] 40 mg tablet,delayed release (DR/EC) 40 mg PO DAILY Qty: 30 RF: 0 levofloxacin 750 mg tablet 750 mg PO DAILY 7 Days Qty: 7 RF: 0 ondansetron HCl [Zofran] 4 mg tablet 4 mg PO Q8H PRN (Reason: nausea and vomiting) Qty: 10 RF: 0 Referrals: Medina Moss MD [Primary Care Provider] - 3 days
[2020-08-16] MEDS: Ketorolac Tromethamine 60 MG/2 ML VIAL IM (18:00)
== END 2020-08-16 18:15 | disposition home or self-care (01) ==
PROVIDERS: Emergency Provider Internal Medicine; PCP Pediatrics
DX: M54.6 Pain in thoracic spine (principal); E11.9 Type 2 diabetes mellitus without complications; I10 Essential (primary) hypertension; F17.200 Nicotine dependence, unspecified, uncomplicated
CPT/HCPCS: 96372; 99284; J1885

== ENCOUNTER 2020-10-01 11:15 | Outpatient (REF) | payer MEDICAID, SELFPAY | END 2020-10-01 11:16 | disposition home or self-care (01) | LOC: HO.LAB 11:15 | PROVIDERS: Visit Provider Internal Medicine | DX: Z20.822 Contact with and (suspected) exposure to COVID-19 (principal) | CPT/HCPCS: C9803; U0003; U0005 ==

== ENCOUNTER 2020-12-23 04:57 | Emergency (ER) | payer MEDICAID, SELFPAY ==
[2020-12-23 05:12] VITALS: BP 196/74; PULSE 104; RESP 16; TEMP 36.8; O2SAT 100; BMI 26.5
--- NOTE | 2020-12-23 06:34 | ED.DENTAL ---
HPI - Dental/Oral General Chief complaint: Dental/Oral Stated complaint: tooth pain for 2 days Time Seen by Provider: 12/23/20 06:34 Source: patient Mode of arrival: ambulatory Limitations: no limitations History of Present Illness MD Complaint: tooth pain Location: Tooth # (32) Onset (ago): month(s) (4) Duration: worsening Severity: severe Relieving factors: nothing Exacerbating factors: chewing, cold and heat Context: trauma (mechanism) (fractured her tooth 4 months ago has not seen a dentist) Associated symptoms: gum swelling Treatment prior to arrival: none Related Data Previous Rx's Medication Instructions Recorded clindamycin HCl 150 mg PO TID 10 Days #30 cap 04/22/20 oxycodone 5 mg PO Q4H PRN #14 cap 04/22/20 metoclopramide HCl [Reglan] 10 mg PO Q6H PRN #60 tab 06/23/20 pantoprazole [Protonix] 40 mg PO DAILY #30 tab 06/23/20 levofloxacin 750 mg PO DAILY 7 Days #7 tab 07/05/20 ondansetron HCl [Zofran] 4 mg PO Q8H PRN #10 tab 07/05/20 cyclobenzaprine 10 mg PO TID PRN #20 tab 08/16/20 ibuprofen 800 mg PO Q8H PRN #21 tab 08/16/20 clindamycin HCl 300 mg PO TID 7 Days #21 cap 12/23/20 tramadol 50 mg PO TID PRN #10 tab 12/23/20 Allergies Allergy/AdvReac Type Severity Reaction Status Date / Time Penicillins [PENICILLINS] Allergy Severe RASH Verified 04/21/20 22:53 amoxicillin [AMOXICILLIN] Allergy Intermediate HIVES Verified 04/21/20 22:53 Review of Systems Review of Systems: Constitutional : No Fever, No Chills ENT/Mouth : No swallowing difficulty, no change in voice, positive dental pain, positive jaw pain, no facial swelling Eyes: No Eye Pain, No Swelling Cardiovascular : No Chest Pain, No SOB Respiratory : No Cough, No Sputum Gastrointestinal : No Nausea, No Vomiting, No Diarrhea Genitourinary : No Dysuria Musculoskeletal : No Myalgias Skin : No rash Neuro : No Weakness, No Numbness, No Headache PMFSH Past Medical History Attestation statement: The following information was validated with the patient. Medical History Asthma COPD (chronic obstructive pulmonary disease) Diabetes Heart problem Hypertension Social History Social History (Updated 12/23/20 @ 06:48 by Graceila Garnett DO) Alcohol intake: never Patient Tobacco Use Status: Current everyday Tobacco user Advance Directives: No Patient : No Physical Exam Vital Signs: Vital Signs: Last Vital Signs Temp 98.2 F 12/23/20 05:12 Pulse 104 H 12/23/20 05:12 Resp 16 12/23/20 05:12 BP 196/74 H 12/23/20 05:12 Pulse Ox 100 12/23/20 05:12 Body Mass Index 26.5 Appearance: Alert. Oriented X3. No acute distress. Eyes: Pupils equal, round and reactive to light. ENT: Pharynx normal. R TM normal no trismus, R lower posterior molar fracture with gum infllamation and induration no abscess noted Neck: Normal inspection. Neck supple. no submandibular swelling, CVS: Pulses normal. Respiratory: No respiratory distress. Abdomen: Soft Skin: Skin warm and dry. Normal skin color. Normal skin turgor. Extremities: No lower extremity edema. Neuro: Oriented X 3. No motor deficit. No sensory deficit. MDM - Dental/Oral MDM Narrative Medical decision making narrative: 50 yo female with chronic R lower molar fractured tooth states she hasn't seen a dentist yet - no signs of systemic symptoms or swelling of the submandibular/sublingual area - fractured tooth now with inflammation but no overt abscess, no signs of deeper space infection, no hx of seizures - start on clindamycin and tramadol referral to dentist ROSARIO Discharge Plan Discharge Clinical Impression: Fracture of tooth Qualifiers: Encounter type: initial encounter Fracture type: closed Qualified Code(s): S02.5XXA - Fracture of tooth (traumatic), initial encounter for closed fracture Patient Disposition: Home, Self-Care Instructions: Toothache (ED) Additional Instructions: return to ED for any worsening symptoms or concerns please follow up with a dentist as soon as possible Prescriptions: New clindamycin HCl 300 mg capsule 300 mg PO TID 7 Days Qty: 21 RF: 0 tramadol 50 mg tablet 50 mg PO TID PRN (Reason: pain) Qty: 10 RF: 0 No Action oxycodone 5 mg capsule 5 mg PO Q4H PRN (Reason: pain) Qty: 14 RF: 0 clindamycin HCl 150 mg capsule 150 mg PO TID 10 Days Qty: 30 RF: 0 metoclopramide HCl [Reglan] 10 mg tablet 10 mg PO Q6H PRN (Reason: nausea and vomiting) Qty: 60 RF: 0 pantoprazole [Protonix] 40 mg tablet,delayed release (DR/EC) 40 mg PO DAILY Qty: 30 RF: 0 cyclobenzaprine 10 mg tablet 10 mg PO TID PRN (Reason: muscle spasm) Qty: 20 RF: 0 ibuprofen 800 mg tablet 800 mg PO Q8H PRN (Reason: pain) Qty: 21 RF: 0 levofloxacin 750 mg tablet 750 mg PO DAILY 7 Days Qty: 7 RF: 0 ondansetron HCl [Zofran] 4 mg tablet 4 mg PO Q8H PRN (Reason: nausea and vomiting) Qty: 10 RF: 0 Stand Alone Forms: Work/School Release
[2020-12-23] MEDS: Clindamycin HCL 300 MG CAPSULE PO (06:46)
[2020-12-23] MEDS: traMADoL HCL 50 MG TABLET PO (06:46)
== END 2020-12-23 06:50 | disposition home or self-care (01) ==
PROVIDERS: Emergency Provider Emergency Medicine
DX: S02.5XXA Fracture of tooth (traumatic), initial encounter for closed fracture (principal); X58.XXXA Exposure to other specified factors, initial encounter; Y93.9 Activity, unspecified; Y92.9 Unspecified place or not applicable; Y99.9 Unspecified external cause status; F17.200 Nicotine dependence, unspecified, uncomplicated; Z71.6 Tobacco abuse counseling; Z79.899 Other long term (current) drug therapy
CPT/HCPCS: 36415; 76705; 80048; 80076; 80307; 81001; 81003; 82077; 82803; 82947; 83690; 83735; 85025; 87086; 87088; 87186; 96365; 96372; 96375; 99284; 99285

== ENCOUNTER 2020-12-23 15:05 | Emergency (ER) | payer MEDICAID, SELFPAY ==
[2020-12-23] VITALS (10 sets, daily range): BP systolic 105–240; BP diastolic 52–116; PULSE 92–101; RESP 16–20; TEMP 36.3–36.8; O2SAT 94–99; BMI 26.5
--- NOTE | ~2020-12-23 | US_ITS ---
EXAMINATION: US ABDOMEN LIMITED CLINICAL INFORMATION: Right upper quadrant pain with abnormal FDG. COMPARISON: CT abdomen pelvis 06/23/2020 TECHNIQUE: Real-time imaging of the right upper quadrant abdominal viscera. FINDINGS: PANCREAS: The visualized portions of the pancreas are unremarkable but a large portion of the gland including the entire body and tail is obscured by bowel gas. LIVER: The liver is normal in size. The liver contour is normal. Parenchymal echogenicity is normal. No focal hepatic lesion. There is no intrahepatic biliary duct dilatation seen. GALLBLADDER: The gallbladder is physiologically distended without evidence of stones, sludge, polyps, wall thickening or pericholecystic fluid. The patient experienced some pain on palpation over the gallbladder. COMMON BILE DUCT: Normal in caliber measuring 0.4 cm in diameter. RIGHT KIDNEY: Normal. No hydronephrosis. No renal calculi or focal parenchymal lesions. The kidney measures 12.9 cm in maximum dimension. FREE FLUID: None. US/US abdomen limited IMPRESSION: Negative study with the exception of pain with palpation over the normal-appearing gallbladder. A large portion of the pancreas was obscured by bowel gas.
[2020-12-23 16:34] LABS: Glucose Urine UA >=1000 MG/DL (NEG); Leukocyte Esterase Urine NEG (NEG); Nitrite Urine POS (NEG); UACC Culture Trigger YES; Urine Blood 1+ (NEG); Urine Ketones 15 MG/DL (NEG); Urine Protein 2+ MG/DL (NEG-TRACE)
[2020-12-23 16:35] LABS: Appearance Urine CLEAR; Color Urine YELLOW
[2020-12-23 16:43] LABS: Bacteria Urine 1+ /LPF; RBC Urine 0-2 /HPF (0); WBC Urine 0 /HPF (0-4)
[2020-12-23] MEDS: 0.9 % Sodium Chloride 1,000 ML 999 ML IVCONT ×2 (16:45→18:13)
[2020-12-23 16:53] LABS: MANUAL DIFF FLAG NO
[2020-12-23 16:54] LABS: Amphetamine Screen Urine Not Detected (Not Detect); Barbiturates, Urine Not Detected (Not Detect); Benzodiazepines Screen Urine Not Detected (Not Detect); Cannabinoid Screen Urine Not Detected (Not Detect); Cocaine Screen Urine Not Detected (Not Detect); Opiate Screen Urine POSITIVE (Not Detect); Phencyclidine Screen Urine Not Detected (Not Detect)
--- NOTE | 2020-12-23 16:55 | ED_ITS ---
HPI - Abdominal Pain General Chief Complaint: Abdominal Pain <MITZI Buck - Last Filed: 12/23/20 18:02> Stated Complaint: toothache, n/v <MITZI Buck - Last Filed: 12/23/20 18:02> Time Seen by Provider: 12/23/20 15:15 <MITZI Buck - Last Filed: 12/23/20 18:02> Source: patient <MITZI Buck - Last Filed: 12/23/20 18:02> Mode of arrival: ambulatory <MITZI Buck - Last Filed: 12/23/20 18:02> History of Present Illness HPI narrative: 50-year-old female with a past medical history of HTN, DM, COPD, asthma presenting to the ED complaining of abdominal discomfort, nausea, vomiting, diarrhea s/p taking dose of Clindamycin which she was prescribed earlier today in the emergency department for dental infection. Admits to taking Clindamycin on an empty stomach. Admits she has been unable to keep anything down, was also unable to take her antihypertensives. Denies illicit drug or ETOH use, CP/SOB, dysuria/hematuria <MITZI Buck - Last Filed: 12/23/20 18:02> MD elicited complaint: abdominal pain <MITZI Buck Last Filed: 12/23/20 18:02> Related Data Home Medications: Previous Rx's Medication Instructions Recorded clindamycin HCl 150 mg PO TID 10 Days #30 cap 04/22/20 oxycodone 5 mg PO Q4H PRN #14 cap 04/22/20 metoclopramide HCl [Reglan] 10 mg PO Q6H PRN #60 tab 06/23/20 pantoprazole [Protonix] 40 mg PO DAILY #30 tab 06/23/20 levofloxacin 750 mg PO DAILY 7 Days #7 tab 07/05/20 ondansetron HCl [Zofran] 4 mg PO Q8H PRN #10 tab 07/05/20 cyclobenzaprine 10 mg PO TID PRN #20 tab 08/16/20 ibuprofen 800 mg PO Q8H PRN #21 tab 08/16/20 levofloxacin 750 mg PO DAILY 7 Days #7 tab 12/23/20 metronidazole [Flagyl] 500 mg PO Q12H 7 Days #14 tab 12/23/20 tramadol 50 mg PO TID PRN #10 tab 12/23/20 <MITZI Buck Last Filed: 12/23/20 18:02> Allergies/Adverse Reactions: Allergies Allergy/AdvReac Type Severity Reaction Status Date / Time Penicillins [PENICILLINS] Allergy Severe RASH Verified 04/21/20 22:53 amoxicillin [AMOXICILLIN] Allergy Intermediate HIVES Verified 04/21/20 22:53 <MITZI Buck - Last Filed: 12/23/20 18:02> Review of Systems Review of Systems Constitutional: No Fever, No Chills, No Malaise ENT/Mouth: No Ear Pain, +dental pain, No sore throat, No Swallowing Difficulty Cardiovascular: No Chest Pain, No SOB Respiratory: No Cough, No Dyspnea Gastrointestinal: + Nausea, + Vomiting, + Diarrhea, No Constipation, + Abdominal pain Genitourinary: No Dysuria, No Urinary Frequency, No Hematuria Musculoskeletal: No joint pain, No Myalgias Skin: No Skin Lesions, No rash Neuro: No Weakness, No Numbness <MITZI Buck - Last Filed: 12/23/20 18:02> Yes all other systems are reviewed and are negative <MITZI Buck - Last Filed: 12/23/20 18:02> Physical Exam Vital Signs: Vital Signs: Last Vital Signs Temp 97.4 F 12/23/20 21:22 Pulse 94 12/23/20 22:38 Resp 16 12/23/20 22:38 BP 196/79 H 12/23/20 22:38 Pulse Ox 94 12/23/20 22:38 Body Mass Index 26.5 <MITZI Buck - Last Filed: 12/23/20 18:02> Vital Signs: Last Vital Signs Temp 97.4 F 12/23/20 21:22 Pulse 94 12/23/20 22:38 Resp 16 12/23/20 22:38 BP 196/79 H 12/23/20 22:38 Pulse Ox 94 12/23/20 22:38 Body Mass Index 26.5 <Lisa Chang PA-C - Last Filed: 12/23/20 22:46> Const: Other: Appears under the influence, jittery/constantly moving on exam <MITZI Buck Last Filed: 12/23/20 18:02> General: cooperative <Liya Vigil PA - Last Filed: 12/23/20 18:02> Limitations: no limitations <Liya Vigil PA - Last Filed: 12/23/20 18:02> HENMT: Other: R lower posterior molar fractured. No appreciable abscess or fluctuance <Liya Vigil PA - Last Filed: 12/23/20 18:02> Head: Yes normal to inspection <Liya Vigil PA - Last Filed: 12/23/20 18:02> Ears: hearing grossly normal bilaterally <Liya Vigil PA - Last Filed: 12/23/20 18:02> General nose exam: Normal external nose present <Liya Vigil PA - Last Filed: 12/23/20 18:02> Face and sinus: Yes normal facial exam <Liya Vigil PA - Last Filed: 12/23/20 18:02> Mouth: Normal oral and palatal mucosa present <Liya Vigil PA - Last Filed: 12/23/20 18:02> Throat: Yes posterior oropharynx normal <Liya Vigil PA - Last Filed: 12/23/20 18:02> Eyes: General: appearance normal, both eyes and all related structures <Liya Vigil PA - Last Filed: 12/23/20 18:02> EOM: EOMs intact bilaterally <Liya Vigil PA - Last Filed: 12/23/20 18:02> Neck: Neck: Yes normal visual inspection and Yes no meningeal signs <Liya Vigil PA - Last Filed: 12/23/20 18:02> Resp: Effort & Inspection: normal respiratory effort <Liya Vigil PA - Last Filed: 12/23/20 18:02> Cardio: Rate: regular rate <Liya Vigil PA - Last Filed: 12/23/20 18:02> GI: Inspection: Yes normal to inspection <Liya Vigil PA - Last Filed: 12/23/20 18:02> Palpation (GI): Soft to palpation, nontender, no guarding and not rigid <Liya Vigil PA - Last Filed: 12/23/20 18:02> Skin: Rashes: no rashes <MITZI Buck Last Filed: 12/23/20 18:02> Wounds: no wounds <MITZI Buck Last Filed: 12/23/20 18:02> Neuro: General: no meningeal signs <MITZI Buck Last Filed: 12/23/20 18:02> Gait exam (Neuro): Normal gait present <MITZI Buck Last Filed: 12/23/20 18:02> Extrem: General: Yes normal to inspection <MITZI Buck Last Filed: 12/23/20 18:02> Course Course Course Narrative: -UA infected, tox screen positive for opiates -no leukocytosis -1730-- on re-evaluation patient still in bathroom on the toilet. Will discontinue Clindamycin and initiate Levaquin & Metronidazole for dental abscess /UTI based on patient's allergies -1750-- glucose elevated to 454, no anion gap, additional L IVF ordered and 5U SQ insulin. AST/ALT notably elevated> on re-evaluation abdomen is still soft and nontender, elevations likely from anorexia / dehydration, but will obtain RUQ ultrasound -1800--ED care transferred to [facility] pending remaining labs, abdomen ultrasound, re-evaluation and p.o. challenge <MITZI Buck Last Filed: 12/23/20 18:02> Reevaluation(s) Reevaluation #1: Abdominal ultrasound negative for any acute issue, repeat point of care 338, patient still getting 2nd L of fluids. Blood pressure still elevated 207/101, HR 98, will give Lopressor IV 5 mg. <Lisa Chang PA-C - Last Filed: 12/23/20 22:46> Time: 20:03 <Lisa Chang PA-C - Last Filed: 12/23/20 22:46> Reevaluation #2: POC in the 200's. Patient's states she does take injectable insulin any tries given to her but she often refuses. Very non compliant. BP still elevated at 196/83, will give 5mg hydralazine. Pt is unsure what hypertension medications she takes and he is unsure who her primary care doctor is. All testing has been negative for any infection or acute process. Will p.o. challenge patient and plan on discharge. <Lisa Chang PA-C - Last Filed: 12/23/20 22:46> Time: 21:41 <Lisa Chang PA-C - Last Filed: 12/23/20 22:46> Reevaluation #3: Patient able to tolerate p.o., will discharge with strict instructions to follow-up with her primary care doctor to get her blood pressure and diabetes medications straightened out. It seems this is more of an issue of noncompliance. Patient's will be taking patient home to care for her. <Lisa Chang PA-C - Last Filed: 12/23/20 22:46> Time: 22:45 <Lisa Chang PA-C - Last Filed: 12/23/20 22:46> MDM - Abdominal Pain MDM Narrative Medical decision making narrative: 50-year-old female with a past medical history of HTN, DM, COPD, asthma presenting to the ED complaining of abdominal discomfort, nausea, vomiting, diarrhea s/p taking dose of Clindamycin which she was prescribed earlier today in the emergency department for dental infection. On exam initially hypertensive, tachycardic, jittery, constantly moving on exam, walking back and forth to the bathroom, it appears under the influence, abdomen is soft/nontender. Concern for substance abuse vs medication side-effect vs dehydration/metabolic abnormalities vs ? C diff from Clindamycin. Lower concern for appendicitis/diverticulitis Plan: Labs, UA, VIDES, IVF, stool studies reassess <MITZI Buck Last Filed: 12/23/20 18:02> Medical Records Attestation: I reviewed the patient's medical records. <MITZI Buck Last Filed: 12/23/20 18:02> Lab Data Attestation: I reviewed the patient's lab results. <MITZI Buck Last Filed: 12/23/20 18:02> Result diagrams: : 12/23/20 16:45 12/23/20 16:45 <MITZI Buck Last Filed: 12/23/20 18:02> Labs: Lab Results 12/23/20 12/23/20 12/23/20 Range/Units 16:22 16:23 16:45 WBC 10.0 (4.8-10.8) X10*3/uL RBC 5.76 H D (4.20-5.50) X10*6/uL Hgb 14.9 D (12.0-16.0) g/dl Hct 45.9 D (37-47) % MCV 79.7 L (80-98) fL MCH 25.9 L (27.0-33.0) pg MCHC 32.5 (31.0-35.0) g/dl RDW 15.2 (11.0-16.0) % Plt Count 178 D (160-400) X10*3/uL MPV 12.5 H (9.4-12.3) fL Immature Gran % (Auto) 0.4 (0.0-0.4) % Neut % (Auto) 85.9 H (45-73) % Lymph % (Auto) 7.8 L (20-40) % [place] % (Auto) 4.9 (2-11) % Eos % (Auto) 0.6 (0-4) % Baso % (Auto) 0.4 (0-2) % Lymph # (Auto) 0.8 L (1.2-4.9) X10*3/uL [place] # (Auto) 0.5 (0.1-1.2) X10*3/uL Eos # (Auto) 0.1 (0.0-0.4) X10*3/uL Baso # (Auto) 0.0 (0.0-0.2) X10*3/uL Abs Immat Gran (auto) 0.04 H (0.00-0.03) X10*3/uL Absolute Neuts (auto) 8.6 H (2.0-8.3) X10*3/uL Absolute Nucleated RBC 0.000 (0.0-0.012) X10*3/uL Nucleated RBC % (auto) 0.0 (0.0-0.2) /100WBC VBG pH (7.32-7.43) VBG pCO2 mmHg VBG pO2 mmHg VBG HCO3 (22-26) mmol/L VBG O2 Saturation % VBG Base Excess mmol/L Sodium (135-145) mmol/L Potassium (3.3-5.1) mmol/L Chloride (96-108) mmol/L Carbon Dioxide (22-29) mmol/L Anion Gap (12-20) BUN (9-16) mg/dL Creatinine (0.5-1.4) mg/dL Estim Creat Clear Calc Estimated GFR POC Glucose (60-115) mg/dL Random Glucose (60-115) mg/dL Calcium (8.4-10.2) mg/dL Magnesium (1.6-2.6) mg/dL Total Bilirubin (0.0-1.0) mg/dL Direct Bilirubin (0.0-0.5) mg/dL AST (5-31) U/L ALT (0-31) U/L Alkaline Phosphatase (39-117) U/L Total Protein (6.5-8.0) g/dL Albumin (3.5-5.0) g/dL Lipase (8-78) U/L Urine Color YELLOW Urine Appearance CLEAR Urine pH 6.0 (5.0-8.0) Ur Specific [place] 1.010 (1.005-1.025) Urine Protein 2+ H (NEG-TRACE) MG/DL Urine Glucose (UA) >=1000 H (NEG) MG/DL Urine Ketones 15 (NEG) MG/DL Urine Blood 1+ H (NEG) Urine Nitrite POS H (NEG) Ur Leukocyte Esterase NEG (NEG) Urine RBC 0-2 (0) /HPF Urine WBC 0 (0-4) /HPF Ur Squamous Epith Cells NONE /LPF Urine Bacteria 1+ /LPF Urine Opiates Screen POSITIVE H (Not Detect) Ur Barbiturates Screen Not Detected (Not Detect) Ur Phencyclidine Scrn Not Detected (Not Detect) Ur Amphetamines Screen Not Detected (Not Detect) U Benzodiazepines Scrn Not Detected (Not Detect) Urine Cocaine Screen Not Detected (Not Detect) U Marijuana (THC) Screen Not Detected (Not Detect) Ethyl Alcohol mg/dL 12/23/20 12/23/20 12/23/20 Range/Units 16:45 16:45 18:02 WBC (4.8-10.8) X10*3/uL RBC (4.20-5.50) X10*6/uL Hgb (12.0-16.0) g/dl Hct (37-47) % MCV (80-98) fL MCH (27.0-33.0) pg MCHC (31.0-35.0) g/dl RDW (11.0-16.0) % Plt Count (160-400) X10*3/uL MPV (9.4-12.3) fL Immature Gran % (Auto) (0.0-0.4) % Neut % (Auto) (45-73) % Lymph % (Auto) (20-40) % [place] % (Auto) (2-11) % Eos % (Auto) (0-4) % Baso % (Auto) (0-2) % Lymph # (Auto) (1.2-4.9) X10*3/uL [place] # (Auto) (0.1-1.2) X10*3/uL Eos # (Auto) (0.0-0.4) X10*3/uL Baso # (Auto) (0.0-0.2) X10*3/uL Abs Immat Gran (auto) (0.00-0.03) X10*3/uL Absolute Neuts (auto) (2.0-8.3) X10*3/uL Absolute Nucleated RBC (0.0-0.012) X10*3/uL Nucleated RBC % (auto) (0.0-0.2) /100WBC VBG pH (7.32-7.43) VBG pCO2 mmHg VBG pO2 mmHg VBG HCO3 (22-26) mmol/L VBG O2 Saturation % VBG Base Excess mmol/L Sodium 137 (135-145) mmol/L Potassium 4.8 (3.3-5.1) mmol/L Chloride 101 (96-108) mmol/L Carbon Dioxide 23 (22-29) mmol/L Anion Gap 18 (12-20) BUN 8 L (9-16) mg/dL Creatinine 0.86 (0.5-1.4) mg/dL Estim Creat Clear Calc 73.3 Estimated GFR > 60 POC Glucose 385 H* (60-115) mg/dL Random Glucose 454 H* (60-115) mg/dL Calcium 9.4 D (8.4-10.2) mg/dL Magnesium 1.8 (1.6-2.6) mg/dL Total Bilirubin 0.9 (0.0-1.0) mg/dL Direct Bilirubin 0.3 (0.0-0.5) mg/dL AST 134 H (5-31) U/L ALT 127 H (0-31) U/L Alkaline Phosphatase 123 H D (39-117) U/L Total Protein 7.4 D (6.5-8.0) g/dL Albumin 4.1 D (3.5-5.0) g/dL Lipase 7 L (8-78) U/L Urine Color Urine Appearance Urine pH (5.0-8.0) Ur Specific [place] (1.005-1.025) Urine Protein (NEG-TRACE) MG/DL Urine Glucose (UA) (NEG) MG/DL Urine Ketones (NEG) MG/DL Urine Blood (NEG) Urine Nitrite (NEG) Ur Leukocyte Esterase (NEG) Urine RBC (0) /HPF Urine WBC (0-4) /HPF Ur Squamous Epith Cells /LPF Urine Bacteria /LPF Urine Opiates Screen (Not Detect) Ur Barbiturates Screen (Not Detect) Ur Phencyclidine Scrn (Not Detect) Ur Amphetamines Screen (Not Detect) U Benzodiazepines Scrn (Not Detect) Urine Cocaine Screen (Not Detect) U Marijuana (THC) Screen (Not Detect) Ethyl Alcohol < 10 mg/dL 12/23/20 12/23/20 12/23/20 Range/Units 18:55 20:29 20:39 WBC (4.8-10.8) X10*3/uL RBC (4.20-5.50) X10*6/uL Hgb (12.0-16.0) g/dl Hct (37-47) % MCV (80-98) fL MCH (27.0-33.0) pg MCHC (31.0-35.0) g/dl RDW (11.0-16.0) % Plt Count (160-400) X10*3/uL MPV (9.4-12.3) fL Immature Gran % (Auto) (0.0-0.4) % Neut % (Auto) (45-73) % Lymph % (Auto) (20-40) % [place] % (Auto) (2-11) % Eos % (Auto) (0-4) % Baso % (Auto) (0-2) % Lymph # (Auto) (1.2-4.9) X10*3/uL [place] # (Auto) (0.1-1.2) X10*3/uL Eos # (Auto) (0.0-0.4) X10*3/uL Baso # (Auto) (0.0-0.2) X10*3/uL Abs Immat Gran (auto) (0.00-0.03) X10*3/uL Absolute Neuts (auto) (2.0-8.3) X10*3/uL Absolute Nucleated RBC (0.0-0.012) X10*3/uL Nucleated RBC % (auto) (0.0-0.2) /100WBC VBG pH 7.43 (7.32-7.43) VBG pCO2 33 mmHg VBG pO2 238 mmHg VBG HCO3 22 (22-26) mmol/L VBG O2 Saturation 100.0 % VBG Base Excess -0.8 mmol/L Sodium (135-145) mmol/L Potassium (3.3-5.1) mmol/L Chloride (96-108) mmol/L Carbon Dioxide (22-29) mmol/L Anion Gap (12-20) BUN (9-16) mg/dL Creatinine (0.5-1.4) mg/dL Estim Creat Clear Calc Estimated GFR POC Glucose 338 H 283 H (60-115) mg/dL Random Glucose (60-115) mg/dL Calcium (8.4-10.2) mg/dL Magnesium (1.6-2.6) mg/dL Total Bilirubin (0.0-1.0) mg/dL Direct Bilirubin (0.0-0.5) mg/dL AST (5-31) U/L ALT (0-31) U/L Alkaline Phosphatase (39-117) U/L Total Protein (6.5-8.0) g/dL Albumin (3.5-5.0) g/dL Lipase (8-78) U/L Urine Color Urine Appearance Urine pH (5.0-8.0) Ur Specific [place] (1.005-1.025) Urine Protein (NEG-TRACE) MG/DL Urine Glucose (UA) (NEG) MG/DL Urine Ketones (NEG) MG/DL Urine Blood (NEG) Urine Nitrite (NEG) Ur Leukocyte Esterase (NEG) Urine RBC (0) /HPF Urine WBC (0-4) /HPF Ur Squamous Epith Cells /LPF Urine Bacteria /LPF Urine Opiates Screen (Not Detect) Ur Barbiturates Screen (Not Detect) Ur Phencyclidine Scrn (Not Detect) Ur Amphetamines Screen (Not Detect) U Benzodiazepines Scrn (Not Detect) Urine Cocaine Screen (Not Detect) U Marijuana (THC) Screen (Not Detect) Ethyl Alcohol mg/dL 12/23/20 Range/Units 21:36 WBC (4.8-10.8) X10*3/uL RBC (4.20-5.50) X10*6/uL Hgb (12.0-16.0) g/dl Hct (37-47) % MCV (80-98) fL MCH (27.0-33.0) pg MCHC (31.0-35.0) g/dl RDW (11.0-16.0) % Plt Count (160-400) X10*3/uL MPV (9.4-12.3) fL Immature Gran % (Auto) (0.0-0.4) % Neut % (Auto) (45-73) % Lymph % (Auto) (20-40) % [place] % (Auto) (2-11) % Eos % (Auto) (0-4) % Baso % (Auto) (0-2) % Lymph # (Auto) (1.2-4.9) X10*3/uL [place] # (Auto) (0.1-1.2) X10*3/uL Eos # (Auto) (0.0-0.4) X10*3/uL Baso # (Auto) (0.0-0.2) X10*3/uL Abs Immat Gran (auto) (0.00-0.03) X10*3/uL Absolute Neuts (auto) (2.0-8.3) X10*3/uL Absolute Nucleated RBC (0.0-0.012) X10*3/uL Nucleated RBC % (auto) (0.0-0.2) /100WBC VBG pH (7.32-7.43) VBG pCO2 mmHg VBG pO2 mmHg VBG HCO3 (22-26) mmol/L VBG O2 Saturation % VBG Base Excess mmol/L Sodium (135-145) mmol/L Potassium (3.3-5.1) mmol/L Chloride (96-108) mmol/L Carbon Dioxide (22-29) mmol/L Anion Gap (12-20) BUN (9-16) mg/dL Creatinine (0.5-1.4) mg/dL Estim Creat Clear Calc Estimated GFR POC Glucose 277 H (60-115) mg/dL Random Glucose (60-115) mg/dL Calcium (8.4-10.2) mg/dL Magnesium (1.6-2.6) mg/dL Total Bilirubin (0.0-1.0) mg/dL Direct Bilirubin (0.0-0.5) mg/dL AST (5-31) U/L ALT (0-31) U/L Alkaline Phosphatase (39-117) U/L Total Protein (6.5-8.0) g/dL Albumin (3.5-5.0) g/dL Lipase (8-78) U/L Urine Color Urine Appearance Urine pH (5.0-8.0) Ur Specific [place] (1.005-1.025) Urine Protein (NEG-TRACE) MG/DL Urine Glucose (UA) (NEG) MG/DL Urine Ketones (NEG) MG/DL Urine Blood (NEG) Urine Nitrite (NEG) Ur Leukocyte Esterase (NEG) Urine RBC (0) /HPF Urine WBC (0-4) /HPF Ur Squamous Epith Cells /LPF Urine Bacteria /LPF Urine Opiates Screen (Not Detect) Ur Barbiturates Screen (Not Detect) Ur Phencyclidine Scrn (Not Detect) Ur Amphetamines Screen (Not Detect) U Benzodiazepines Scrn (Not Detect) Urine Cocaine Screen (Not Detect) U Marijuana (THC) Screen (Not Detect) Ethyl Alcohol mg/dL <MITZI Buck - Last Filed: 12/23/20 18:02> Lab Results 12/23/20 12/23/20 12/23/20 Range/Units 16:22 16:23 16:45 WBC 10.0 (4.8-10.8) X10*3/uL RBC 5.76 H D (4.20-5.50) X10*6/uL Hgb 14.9 D (12.0-16.0) g/dl Hct 45.9 D (37-47) % MCV 79.7 L (80-98) fL MCH 25.9 L (27.0-33.0) pg MCHC 32.5 (31.0-35.0) g/dl RDW 15.2 (11.0-16.0) % Plt Count 178 D (160-400) X10*3/uL MPV 12.5 H (9.4-12.3) fL Immature Gran % (Auto) 0.4 (0.0-0.4) % Neut % (Auto) 85.9 H (45-73) % Lymph % (Auto) 7.8 L (20-40) % [place] % (Auto) 4.9 (2-11) % Eos % (Auto) 0.6 (0-4) % Baso % (Auto) 0.4 (0-2) % Lymph # (Auto) 0.8 L (1.2-4.9) X10*3/uL [place] # (Auto) 0.5 (0.1-1.2) X10*3/uL Eos # (Auto) 0.1 (0.0-0.4) X10*3/uL Baso # (Auto) 0.0 (0.0-0.2) X10*3/uL Abs Immat Gran (auto) 0.04 H (0.00-0.03) X10*3/uL Absolute Neuts (auto) 8.6 H (2.0-8.3) X10*3/uL Absolute Nucleated RBC 0.000 (0.0-0.012) X10*3/uL Nucleated RBC % (auto) 0.0 (0.0-0.2) /100WBC VBG pH (7.32-7.43) VBG pCO2 mmHg VBG pO2 mmHg VBG HCO3 (22-26) mmol/L VBG O2 Saturation % VBG Base Excess mmol/L Sodium (135-145) mmol/L Potassium (3.3-5.1) mmol/L Chloride (96-108) mmol/L Carbon Dioxide (22-29) mmol/L Anion Gap (12-20) BUN (9-16) mg/dL Creatinine (0.5-1.4) mg/dL Estim Creat Clear Calc Estimated GFR POC Glucose (60-115) mg/dL Random Glucose (60-115) mg/dL Calcium (8.4-10.2) mg/dL Magnesium (1.6-2.6) mg/dL Total Bilirubin (0.0-1.0) mg/dL Direct Bilirubin (0.0-0.5) mg/dL AST (5-31) U/L ALT (0-31) U/L Alkaline Phosphatase (39-117) U/L Total Protein (6.5-8.0) g/dL Albumin (3.5-5.0) g/dL Lipase (8-78) U/L Urine Color YELLOW Urine Appearance CLEAR Urine pH 6.0 (5.0-8.0) Ur Specific [place] 1.010 (1.005-1.025) Urine Protein 2+ H (NEG-TRACE) MG/DL Urine Glucose (UA) >=1000 H (NEG) MG/DL Urine Ketones 15 (NEG) MG/DL Urine Blood 1+ H (NEG) Urine Nitrite POS H (NEG) Ur Leukocyte Esterase NEG (NEG) Urine RBC 0-2 (0) /HPF Urine WBC 0 (0-4) /HPF Ur Squamous Epith Cells NONE /LPF Urine Bacteria 1+ /LPF Urine Opiates Screen POSITIVE H (Not Detect) Ur Barbiturates Screen Not Detected (Not Detect) Ur Phencyclidine Scrn Not Detected (Not Detect) Ur Amphetamines Screen Not Detected (Not Detect) U Benzodiazepines Scrn Not Detected (Not Detect) Urine Cocaine Screen Not Detected (Not Detect) U Marijuana (THC) Screen Not Detected (Not Detect) Ethyl Alcohol mg/dL 12/23/20 12/23/20 12/23/20 Range/Units 16:45 16:45 18:02 WBC (4.8-10.8) X10*3/uL RBC (4.20-5.50) X10*6/uL Hgb (12.0-16.0) g/dl Hct (37-47) % MCV (80-98) fL MCH (27.0-33.0) pg MCHC (31.0-35.0) g/dl RDW (11.0-16.0) % Plt Count (160-400) X10*3/uL MPV (9.4-12.3) fL Immature Gran % (Auto) (0.0-0.4) % Neut % (Auto) (45-73) % Lymph % (Auto) (20-40) % [place] % (Auto) (2-11) % Eos % (Auto) (0-4) % Baso % (Auto) (0-2) % Lymph # (Auto) (1.2-4.9) X10*3/uL [place] # (Auto) (0.1-1.2) X10*3/uL Eos # (Auto) (0.0-0.4) X10*3/uL Baso # (Auto) (0.0-0.2) X10*3/uL Abs Immat Gran (auto) (0.00-0.03) X10*3/uL Absolute Neuts (auto) (2.0-8.3) X10*3/uL Absolute Nucleated RBC (0.0-0.012) X10*3/uL Nucleated RBC % (auto) (0.0-0.2) /100WBC VBG pH (7.32-7.43) VBG pCO2 mmHg VBG pO2 mmHg VBG HCO3 (22-26) mmol/L VBG O2 Saturation % VBG Base Excess mmol/L Sodium 137 (135-145) mmol/L Potassium 4.8 (3.3-5.1) mmol/L Chloride 101 (96-108) mmol/L Carbon Dioxide 23 (22-29) mmol/L Anion Gap 18 (12-20) BUN 8 L (9-16) mg/dL Creatinine 0.86 (0.5-1.4) mg/dL Estim Creat Clear Calc 73.3 Estimated GFR > 60 POC Glucose 385 H* (60-115) mg/dL Random Glucose 454 H* (60-115) mg/dL Calcium 9.4 D (8.4-10.2) mg/dL Magnesium 1.8 (1.6-2.6) mg/dL Total Bilirubin 0.9 (0.0-1.0) mg/dL Direct Bilirubin 0.3 (0.0-0.5) mg/dL AST 134 H (5-31) U/L ALT 127 H (0-31) U/L Alkaline Phosphatase 123 H D (39-117) U/L Total Protein 7.4 D (6.5-8.0) g/dL Albumin 4.1 D (3.5-5.0) g/dL Lipase 7 L (8-78) U/L Urine Color Urine Appearance Urine pH (5.0-8.0) Ur Specific [place] (1.005-1.025) Urine Protein (NEG-TRACE) MG/DL Urine Glucose (UA) (NEG) MG/DL Urine Ketones (NEG) MG/DL Urine Blood (NEG) Urine Nitrite (NEG) Ur Leukocyte Esterase (NEG) Urine RBC (0) /HPF Urine WBC (0-4) /HPF Ur Squamous Epith Cells /LPF Urine Bacteria /LPF Urine Opiates Screen (Not Detect) Ur Barbiturates Screen (Not Detect) Ur Phencyclidine Scrn (Not Detect) Ur Amphetamines Screen (Not Detect) U Benzodiazepines Scrn (Not Detect) Urine Cocaine Screen (Not Detect) U Marijuana (THC) Screen (Not Detect) Ethyl Alcohol < 10 mg/dL 12/23/20 12/23/20 12/23/20 Range/Units 18:55 20:29 20:39 WBC (4.8-10.8) X10*3/uL RBC (4.20-5.50) X10*6/uL Hgb (12.0-16.0) g/dl Hct (37-47) % MCV (80-98) fL MCH (27.0-33.0) pg MCHC (31.0-35.0) g/dl RDW (11.0-16.0) % Plt Count (160-400) X10*3/uL MPV (9.4-12.3) fL Immature Gran % (Auto) (0.0-0.4) % Neut % (Auto) (45-73) % Lymph % (Auto) (20-40) % [place] % (Auto) (2-11) % Eos % (Auto) (0-4) % Baso % (Auto) (0-2) % Lymph # (Auto) (1.2-4.9) X10*3/uL [place] # (Auto) (0.1-1.2) X10*3/uL Eos # (Auto) (0.0-0.4) X10*3/uL Baso # (Auto) (0.0-0.2) X10*3/uL Abs Immat Gran (auto) (0.00-0.03) X10*3/uL Absolute Neuts (auto) (2.0-8.3) X10*3/uL Absolute Nucleated RBC (0.0-0.012) X10*3/uL Nucleated RBC % (auto) (0.0-0.2) /100WBC VBG pH 7.43 (7.32-7.43) VBG pCO2 33 mmHg VBG pO2 238 mmHg VBG HCO3 22 (22-26) mmol/L VBG O2 Saturation 100.0 % VBG Base Excess -0.8 mmol/L Sodium (135-145) mmol/L Potassium (3.3-5.1) mmol/L Chloride (96-108) mmol/L Carbon Dioxide (22-29) mmol/L Anion Gap (12-20) BUN (9-16) mg/dL Creatinine (0.5-1.4) mg/dL Estim Creat Clear Calc Estimated GFR POC Glucose 338 H 283 H (60-115) mg/dL Random Glucose (60-115) mg/dL Calcium (8.4-10.2) mg/dL Magnesium (1.6-2.6) mg/dL Total Bilirubin (0.0-1.0) mg/dL Direct Bilirubin (0.0-0.5) mg/dL AST (5-31) U/L ALT (0-31) U/L Alkaline Phosphatase (39-117) U/L Total Protein (6.5-8.0) g/dL Albumin (3.5-5.0) g/dL Lipase (8-78) U/L Urine Color Urine Appearance Urine pH (5.0-8.0) Ur Specific [place] (1.005-1.025) Urine Protein (NEG-TRACE) MG/DL Urine Glucose (UA) (NEG) MG/DL Urine Ketones (NEG) MG/DL Urine Blood (NEG) Urine Nitrite (NEG) Ur Leukocyte Esterase (NEG) Urine RBC (0) /HPF Urine WBC (0-4) /HPF Ur Squamous Epith Cells /LPF Urine Bacteria /LPF Urine Opiates Screen (Not Detect) Ur Barbiturates Screen (Not Detect) Ur Phencyclidine Scrn (Not Detect) Ur Amphetamines Screen (Not Detect) U Benzodiazepines Scrn (Not Detect) Urine Cocaine Screen (Not Detect) U Marijuana (THC) Screen (Not Detect) Ethyl Alcohol mg/dL 12/23/20 Range/Units 21:36 WBC (4.8-10.8) X10*3/uL RBC (4.20-5.50) X10*6/uL Hgb (12.0-16.0) g/dl Hct (37-47) % MCV (80-98) fL MCH (27.0-33.0) pg MCHC (31.0-35.0) g/dl RDW (11.0-16.0) % Plt Count (160-400) X10*3/uL MPV (9.4-12.3) fL Immature Gran % (Auto) (0.0-0.4) % Neut % (Auto) (45-73) % Lymph % (Auto) (20-40) % [place] % (Auto) (2-11) % Eos % (Auto) (0-4) % Baso % (Auto) (0-2) % Lymph # (Auto) (1.2-4.9) X10*3/uL [place] # (Auto) (0.1-1.2) X10*3/uL Eos # (Auto) (0.0-0.4) X10*3/uL Baso # (Auto) (0.0-0.2) X10*3/uL Abs Immat Gran (auto) (0.00-0.03) X10*3/uL Absolute Neuts (auto) (2.0-8.3) X10*3/uL Absolute Nucleated RBC (0.0-0.012) X10*3/uL Nucleated RBC % (auto) (0.0-0.2) /100WBC VBG pH (7.32-7.43) VBG pCO2 mmHg VBG pO2 mmHg VBG HCO3 (22-26) mmol/L VBG O2 Saturation % VBG Base Excess mmol/L Sodium (135-145) mmol/L Potassium (3.3-5.1) mmol/L Chloride (96-108) mmol/L Carbon Dioxide (22-29) mmol/L Anion Gap (12-20) BUN (9-16) mg/dL Creatinine (0.5-1.4) mg/dL Estim Creat Clear Calc Estimated GFR POC Glucose 277 H (60-115) mg/dL Random Glucose (60-115) mg/dL Calcium (8.4-10.2) mg/dL Magnesium (1.6-2.6) mg/dL Total Bilirubin (0.0-1.0) mg/dL Direct Bilirubin (0.0-0.5) mg/dL AST (5-31) U/L ALT (0-31) U/L Alkaline Phosphatase (39-117) U/L Total Protein (6.5-8.0) g/dL Albumin (3.5-5.0) g/dL Lipase (8-78) U/L Urine Color Urine Appearance Urine pH (5.0-8.0) Ur Specific [place] (1.005-1.025) Urine Protein (NEG-TRACE) MG/DL Urine Glucose (UA) (NEG) MG/DL Urine Ketones (NEG) MG/DL Urine Blood (NEG) Urine Nitrite (NEG) Ur Leukocyte Esterase (NEG) Urine RBC (0) /HPF Urine WBC (0-4) /HPF Ur Squamous Epith Cells /LPF Urine Bacteria /LPF Urine Opiates Screen (Not Detect) Ur Barbiturates Screen (Not Detect) Ur Phencyclidine Scrn (Not Detect) Ur Amphetamines Screen (Not Detect) U Benzodiazepines Scrn (Not Detect) Urine Cocaine Screen (Not Detect) U Marijuana (THC) Screen (Not Detect) Ethyl Alcohol mg/dL <Lisa Chang PA-C - Last Filed: 12/23/20 22:46> Discharge Plan Discharge Clinical Impression: Fracture of tooth, Nausea vomiting and diarrhea, UTI (urinary tract infection), Elevated LFTs, Non compliance w medication regimen <MITZI Buck - Last Filed: 12/23/20 18:02> Patient Disposition: Home, Self-Care <MITZI Buck - Last Filed: 12/23/20 18:02> Instructions: Acute Nausea and Vomiting (ED), Acute Diarrhea (ED) <MITZI Buck - Last Filed: 12/23/20 18:02> Additional Instructions: Stop taking previously prescribed clindamycin, start taking Levaquin and Flagyl, this will treat both your dental infection and your UTI You have a urinary tract infection Is very important that you follow-up with a dentist as previously spoken to you about this morning If your nausea, vomiting, and diarrhea persists or worsens, have unremitting abdominal pain, develops fever, you are unable to eat or drink please return to the ED. It is important to take your diabetes and hypertension medications daily. Not taking her diabetes medications can lead to stomach upset, nausea and vomiting. <MITZI Buck - Last Filed: 12/23/20 18:02> Prescriptions: New levofloxacin 750 mg tablet 750 mg PO DAILY 7 Days Qty: 7 RF: 0 metronidazole [Flagyl] 500 mg tablet 500 mg PO Q12H 7 Days Qty: 14 RF: 0 Discontinued clindamycin HCl 300 mg capsule 300 mg PO TID 7 Days Qty: 21 RF: 0 No Action oxycodone 5 mg capsule 5 mg PO Q4H PRN (Reason: pain) Qty: 14 RF: 0 clindamycin HCl 150 mg capsule 150 mg PO TID 10 Days Qty: 30 RF: 0 metoclopramide HCl [Reglan] 10 mg tablet 10 mg PO Q6H PRN (Reason: nausea and vomiting) Qty: 60 RF: 0 pantoprazole [Protonix] 40 mg tablet,delayed release (DR/EC) 40 mg PO DAILY Qty: 30 RF: 0 cyclobenzaprine 10 mg tablet 10 mg PO TID PRN (Reason: muscle spasm) Qty: 20 RF: 0 ibuprofen 800 mg tablet 800 mg PO Q8H PRN (Reason: pain) Qty: 21 RF: 0 levofloxacin 750 mg tablet 750 mg PO DAILY 7 Days Qty: 7 RF: 0 ondansetron HCl [Zofran] 4 mg tablet 4 mg PO Q8H PRN (Reason: nausea and vomiting) Qty: 10 RF: 0 tramadol 50 mg tablet 50 mg PO TID PRN (Reason: pain) Qty: 10 RF: 0 <MITZI Buck - Last Filed: 12/23/20 18:02> Referrals: Kayce Green, YADIRA [Dentist] - 2 days Physician,Unknown [Primary Care Provider] - 2 days <MITZI Buck - Last Filed: 12/23/20 18:02> PMFSH Past Medical History Attestation statement: The following information was validated with the patient. <MITZI Buck - Last Filed: 12/23/20 18:02> Medical History: Medical History Asthma COPD (chronic obstructive pulmonary disease) Diabetes Heart problem Hypertension <MITZI Buck - Last Filed: 12/23/20 18:02> Social History Social History: Social History (Updated 12/23/20 @ 06:48 by Graciela Garnett DO) Alcohol intake: never Patient Tobacco Use Status: Current everyday Tobacco user Use of substances other than those prescribed or required for medical reasons: Refusing to respond Advance Directives: No Advance Directives Information Provided: Yes <MITZI Buck - Last Filed: 12/23/20 18:02>
[2020-12-23 16:56] LABS: Basophils Percent Auto 0.4 % (0-2); Eosinophils Absolute Auto 0.1 X10*3/uL (0.0-0.4); Eosinophils Percent Auto 0.6 % (0-4); Hematocrit 45.9 % (37-47); Hemoglobin 14.9 g/dl (12.0-16.0); Imm Gran Abs Auto 0.04 X10*3/uL (0.00-0.03); Imm Gran Pct Auto 0.4 % (0.0-0.4); Lymphocytes Absolute Auto 0.8 X10*3/uL (1.2-4.9); Lymphocytes Percent Auto 7.8 % (20-40); Mean Corpuscular HGB Conc 32.5 g/dl (31.0-35.0); Mean Corpuscular Hemoglobin 25.9 pg (27.0-33.0); Mean Corpuscular Volume 79.7 fL (80-98); Mean Platelet Volume 12.5 fL (9.4-12.3); Monocytes Absolute Auto 0.5 X10*3/uL (0.1-1.2); Monocytes Percent Auto 4.9 % (2-11); Neutrophils Absolute Auto 8.6 X10*3/uL (2.0-8.3); Neutrophils Percent Auto 85.9 % (45-73); Platelet Count 178 X10*3/uL (160-400); Red Blood Count 5.76 X10*6/uL (4.20-5.50); Red Cell Distribution Width 15.2 % (11.0-16.0)
--- NOTE | 2020-12-23 17:32 | PC.NURSE ---
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 2 EPISODES OF VOMITING SINCE ARRIVAL. PT IS DIFFICULT TO CONSOLE, DENIES SUBSTANCE USE, DENIES POSSIBILITY OF SUBSTANCE WD.
[2020-12-23 17:46] LABS: Alanine Aminotransferase 127 U/L (0-31); Albumin Level 4.1 g/dL (3.5-5.0); Alkaline Phosphatase 123 U/L (39-117); Anion Gap 18 (12-20); Aspartate Amino Transferase 134 U/L (5-31); Bilirubin Direct 0.3 mg/dL (0.0-0.5); Bilirubin Total 0.9 mg/dL (0.0-1.0); Blood Urea Nitrogen 8 mg/dL (9-16); Calcium 9.4 mg/dL (8.4-10.2); Carbon Dioxide 23 mmol/L (22-29); Chloride 101 mmol/L (96-108); Creatinine Clr Calc Pharmacy 73.3; Estimated Glomerular Filt Rate > 60; Glucose Random 454 mg/dL (60-115); Lipase 7 U/L (8-78); Magnesium 1.8 mg/dL (1.6-2.6); Potassium 4.8 mmol/L (3.3-5.1); Sodium 137 mmol/L (135-145); Total Protein 7.4 g/dL (6.5-8.0)
[2020-12-23 18:07] LABS: Glucose, Whole Blood 385 mg/dL (60-115)
[2020-12-23] MEDS: Insulin Regular, Human 100 UNIT/ML 3 ML VIAL SUBCUT (18:13)
[2020-12-23] MEDS: Dicyclomine HCl 10 MG CAPSULE 20 MG PO (18:14)
[2020-12-23] MEDS: Magnesium Hydrox/Alum Hydrox 30 ML ORAL.SUSP PO (18:14)
[2020-12-23] MEDS: Famotidine/PF 20 MG/2 ML VIAL IVPUSH (18:14)
[2020-12-23 18:23] LABS: Ethanol < 10 mg/dL
[2020-12-23 19:00] LABS: Glucose, Whole Blood 338 mg/dL (60-115)
[2020-12-23] MEDS: Metoprolol Tartrate 5 MG/5 ML VIAL IVPUSH (20:11)
--- NOTE | 2020-12-23 20:25 | PC.NURSE ---
PT CONTINUES TO BE IN SIGNIFICANT AMT OF ABD PAIN. REMAINS NAUSEOUS. PT SLEEPING WHEN NOT BEING ADDRESSED, THOUGH DOES APPEAR TO BE UNCOMFORTABLE. REPORTS SHE TAKES HER INSULIN ONCE IN A BLUE ALLEN .
[2020-12-23 20:33] LABS: Glucose, Whole Blood 283 mg/dL (60-115)
[2020-12-23 20:45] LABS: Venous Blood Gas Refer to POC result
[2020-12-23 20:47] LABS: VBG Base Excess -0.8 mmol/L; VBG HCO3 22 mmol/L (22-26); VBG pCO2 33 mmHg; VBG pH 7.43 (7.32-7.43); VBG pO2 238 mmHg
[2020-12-23 21:40] LABS: Glucose, Whole Blood 277 mg/dL (60-115)
[2020-12-23] MEDS: hydrALAZINE HCl 20 MG/ML VIAL 5 MG IVPUSH (21:52)
--- NOTE | 2020-12-23 22:39 | PC.NURSE ---
PT TOLERATING CRACKERS AND SIPS OF USHA JUSTINO. SLEEPING IN STRETCHER OTHERWISE.
--- NOTE | 2020-12-23 22:40 | PC.NURSE ---
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
== END 2020-12-23 22:58 | disposition home or self-care (01) ==
PROVIDERS: Physician Assistant; Emergency Provider Emergency Medicine Emergency Medical Services
DX: S02.5XXA Fracture of tooth (traumatic), initial encounter for closed fracture (principal); R10.9 Unspecified abdominal pain; N39.0 Urinary tract infection, site not specified; R94.5 Abnormal results of liver function studies; J44.9 Chronic obstructive pulmonary disease, unspecified; R19.7 Diarrhea, unspecified; X58.XXXA Exposure to other specified factors, initial encounter; Y93.9 Activity, unspecified; Y92.9 Unspecified place or not applicable; Y99.9 Unspecified external cause status; F17.200 Nicotine dependence, unspecified, uncomplicated; Z71.6 Tobacco abuse counseling; Z79.899 Other long term (current) drug therapy
CPT/HCPCS: 36415; 76705; 80048; 80076; 80307; 81001; 81003; 82077; 82803; 82947; 83690; 83735; 85025; 87086; 87088; 87186; 96365; 96372; 96375; 99285

== ENCOUNTER 2020-12-24 13:50 | Emergency (ER) | payer MEDICAID, SELFPAY ==
--- NOTE | ~2020-12-24 | CT_ITS ---
EXAMINATION: CT ABDOMEN AND PELVIS WITH CONTRAST CLINICAL INFORMATION: Nausea, vomiting COMPARISON: 06/23/2020 TECHNIQUE: Multidetector volumetric images were obtained from the superior aspect of the liver through the pubic symphysis following administration 85 mL of Omnipaque 350 intravenous contrast. Sagittal and coronal reformatted images were obtained on the technologist's workstation. Oral contrast: No This CT examination was performed using dose optimization techniques as appropriate, variously including the following: *Automated exposure control *Adjustment of mA and/or kV according to patient size (this includes techniques or standardized protocols for targeted exams where dose is matched to indication/reason for exam; i.e. extremities or head) *Use of iterative reconstruction technique DLP: 485 mGy-cm FINDINGS: LUNG BASES: The visualized lung bases are unremarkable. LIVER, GALLBLADDER, AND BILIARY TREE: The liver is normal in size, shape, and attenuation. No focal hepatic lesion or biliary ductal dilatation is present. The gallbladder is unremarkable with no evidence of radiopaque gallstones, gallbladder wall thickening, or obvious pericholecystic inflammatory changes. PANCREAS: Unremarkable. SPLEEN: Unremarkable. ADRENAL GLANDS: Stable left adrenal nodule from previous of 06/23/2019 KIDNEYS AND URETERS: The kidneys are normal in size, shape, and attenuation. No hydronephrosis, hydroureter, or calculi seen. No perinephric stranding. Small Nonobstructing right renal calculi BLADDER: Unremarkable. GASTROINTESTINAL TRACT: The small and large bowel are unremarkable. The appendix is similar to previous. The outpouching from the cecum is wide but the appendix and one fashion The esophagus appears thickened distally. Fairly significant. ABDOMINAL WALL: No significant hernia is appreciated. LYMPH NODES: Normal. VASCULAR: Atherosclerotic changes. No evidence for aneurysmal change PELVIC VISCERA: Mildly prominent ovarian structures once again seen. OSSEOUS STRUCTURES: Unremarkable. CT/CT abdomen pelvis w con IMPRESSION: The distal esophagus is thick-walled. Recommend endoscopy. This may represent esophagitis. Tumor cannot be excluded. Otherwise bowel pattern is nonobstructing. There is no free fluid. Nonobstructing renal calculi. Prominent ovarian structures and cystic change once again seen
--- NOTE | ~2020-12-24 | XR_ITS ---
Indication: Hyperglycemia, wound left great toe EXAMINATION: Single view chest, 3 views of the left foot. Chest film was compared to previous dated 03/20/2019. Findings; No acute finding. No obvious failure or infiltrate. No effusion. Mediastinal contours are comparable to previous. 3 views of left foot demonstrate soft tissue disruption along the medial aspect of the great toe. There are some densities in the region. One of these may represent a foreign body. Measures 1 mm. Other small densities in the region of the joint may be dystrophic calcification. Bony avulsion cannot be excluded. XR/XR chest 1V IMPRESSION: No acute finding in the chest. Possible loose body within the soft tissue adjacent to the distal phalanx of the first digit left foot. Some small bony densities in the region of the interphalangeal joint may be dystrophic calcification associated with degeneration but avulsion injury cannot be excluded
--- NOTE | ~2020-12-24 | XR_ITS ---
Indication: Hyperglycemia, wound left great toe EXAMINATION: Single view chest, 3 views of the left foot. Chest film was compared to previous dated 03/20/2019. Findings; No acute finding. No obvious failure or infiltrate. No effusion. Mediastinal contours are comparable to previous. 3 views of left foot demonstrate soft tissue disruption along the medial aspect of the great toe. There are some densities in the region. One of these may represent a foreign body. Measures 1 mm. Other small densities in the region of the joint may be dystrophic calcification. Bony avulsion cannot be excluded. XR/XR foot LT min 3V IMPRESSION: No acute finding in the chest. Possible loose body within the soft tissue adjacent to the distal phalanx of the first digit left foot. Some small bony densities in the region of the interphalangeal joint may be dystrophic calcification associated with degeneration but avulsion injury cannot be excluded
[2020-12-24 13:56] VITALS: BP 174/95; PULSE 115; RESP 16; O2SAT 99; BMI 26.5
[2020-12-24 14:40] LABS: MANUAL DIFF FLAG NO
[2020-12-24] MEDS: ondansetron HCL 4 MG/2 ML VIAL IVPUSH ×2 (14:40→19:46)
[2020-12-24] MEDS: 0.9 % Sodium Chloride 1,000 ML 999 ML IVCONT ×4 (14:40→19:45)
[2020-12-24] MEDS: LORazepam 2 MG/ML VIAL IVPUSH ×2 (14:40→18:16)
[2020-12-24 14:46] LABS: Basophils Percent Auto 0.2 % (0-2); Eosinophils Percent Auto 0.1 % (0-4); Hematocrit 47.3 % (37-47); Hemoglobin 14.9 g/dl (12.0-16.0); Imm Gran Abs Auto 0.13 X10*3/uL (0.00-0.03); Imm Gran Pct Auto 0.7 % (0.0-0.4); Lymphocytes Percent Auto 5.2 % (20-40); Mean Corpuscular HGB Conc 31.5 g/dl (31.0-35.0); Mean Corpuscular Hemoglobin 25.9 pg (27.0-33.0); Mean Corpuscular Volume 82.3 fL (80-98); Mean Platelet Volume 12.9 fL (9.4-12.3); Monocytes Absolute Auto 0.8 X10*3/uL (0.1-1.2); Neutrophils Absolute Auto 17.5 X10*3/uL (2.0-8.3); Neutrophils Percent Auto 89.8 % (45-73); Platelet Count 246 X10*3/uL (160-400); Red Blood Count 5.75 X10*6/uL (4.20-5.50); Red Cell Distribution Width 16.1 % (11.0-16.0); White Blood Count 19.5 X10*3/uL (4.8-10.8)
--- NOTE | 2020-12-24 14:50 | PC.NURSE ---
pt having multiple episodes of vomiting, vomiting all over bed sheets even when offered emesis bag. pt appears out of behavioral control, continually sts youre killing me youre killing me! pt educated about need for iv access for medication admin to assist in pt feeling better. iv accessed, blood labs obtained and sent. medicated per emar. pt linens and bed linens changed w two assist. wctm.
[2020-12-24 14:52] VITALS: TEMP 36.6
[2020-12-24 15:11] LABS: Ethanol < 10 mg/dL
--- NOTE | 2020-12-24 15:15 | ED_ITS ---
HPI - Nausea/Vomiting/Diarrhea General Chief complaint: Nausea/Vomiting/Diarrhea Stated complaint: VOMITING X'S 3DAYS,SEEN FOR SAME RECENTLY Time Seen by Provider: 12/24/20 14:12 Source: patient and EMS Mode of arrival: EMS Limitations: no limitations History of Present Illness HPI Narrative: 50-year-old female With a past medical history of diabetes, hypertension and COPD presenting to the ED via EMS with complaints of severe nausea/vomiting with diffuse abdominal pain/cramping since she was prescribed clindamycin and tramadol on 12/23/2020 for a dental pain/infection. Then she returned later on that day yesterday for same complaint she was noted to have an elevated glucose level but no anion gap therefore she was given 2L's of IV fluids and 5 units of subQ insulin her LFTs were also noted to be elevated although at that time she did not have any abdominal tenderness and an ultrasound of her right upper extremity was obtained and was negative for any acute processes. Patient was positive for opioids on tox screen negative for all other drugs. She was sent home and they switched her clindamycin to Levaquin and Flagyl for dental pain/infection/UTI based on the patient's allergies. She reports she also started taking the Levaquin and Flagyl and she is still having the nausea vomiting and severe abdominal pain therefore she came here for further evaluation treatment. She denies any fevers, dizziness, headaches, change of vision, neck pain/stiffness, cough, chest pain, shortness of breath, black or bloody emesis, back pain, dysuria, hematuria, abnormal vaginal discharge, diarrhea, constipation, recent travel, possible bad food exposure or sick contacts. Patient denies any other symptoms complaints or concerns at this time. MD elicited complaint: nausea, vomiting and abdominal pain Pertinent past history: other (See above) Onset (ago): day(s) (2 days worse today) Description of vomiting: watery and bilious Associated nausea: Yes Associated abdominal pain: Yes Location of pain: diffuse Pain consistency: constant Severity: severe Pain scale (0-10): 10 Quality: cramping, aching and constant Exacerbating factors: vomiting and medication (See above) Relieving factors: none Context: recent antibiotic use (See above) Associated symptoms: denies other symptoms Related Data Home Medications Medication Instructions Recorded Confirmed albuterol sulfate [ProAir HFA] 2 puff PO Q4H PRN 12/24/20 12/24/20 aspirin 1 tab PO DAILY 12/24/20 12/24/20 atorvastatin 1 tab PO DAILY 12/24/20 12/24/20 fluticasone propion-salmeterol 2 puff INHALATION BID 12/24/20 12/24/20 [Advair HFA] gabapentin 2 cap PO BEDTIME 12/24/20 12/24/20 glipizide-metformin 2 tab PO BIDWM 12/24/20 12/24/20 lisinopril-hydrochlorothiazide 1 tab PO DAILY 12/24/20 12/24/20 montelukast 1 tab PO QPM 12/24/20 12/24/20 umeclidinium [Incruse Ellipta] 1 puff PO DAILY 12/24/20 12/24/20 Previous Rx's Medication Instructions Recorded oxycodone 5 mg PO Q4H PRN #14 cap 04/22/20 metoclopramide HCl [Reglan] 10 mg PO Q6H PRN #60 tab 06/23/20 pantoprazole [Protonix] 40 mg PO DAILY #30 tab 06/23/20 ondansetron HCl [Zofran] 4 mg PO Q8H PRN #10 tab 07/05/20 levofloxacin 750 mg PO DAILY 7 Days #7 tab 12/23/20 metronidazole [Flagyl] 500 mg PO Q12H 7 Days #14 tab 12/23/20 tramadol 50 mg PO TID PRN #10 tab 12/23/20 Allergies Allergy/AdvReac Type Severity Reaction Status Date / Time Penicillins [PENICILLINS] Allergy Severe RASH Verified 04/21/20 22:53 amoxicillin [AMOXICILLIN] Allergy Intermediate HIVES Verified 04/21/20 22:53 Review of Systems Review of Systems: Constitutional : No Fever, No Chills, No Night Sweats, No Fatigue, No Malaise Cardiovascular : No Chest Pain, No SOB Respiratory : No Cough, No Sputum, No Wheezing, No Dyspnea Gastrointestinal : + Nausea, + Vomiting, No Diarrhea, + abdominal Pain, No Hematochezia, No Melena Genitourinary : No irregular bleeding, No Dysuria, No Urinary Frequency, No Hematuria,No Urinary Incontinence, No Urgency, No Flank Pain Musculoskeletal : No joint pain, No Myalgias, No Joint Swelling Skin : No Skin Lesions, No rash Neuro : No Weakness, No Numbness, No Paresthesias, No Loss of Consciousness, No Dizziness, No Headache Heme/Lymph: No Lymphadenopathy Endocrine : No Temperature Intolerance Yes all other systems are reviewed and are negative Gastrointestinal: Gastrointestinal: Reports nausea PMFSH Past Medical History Attestation statement: The following information was validated with the patient. Medical History Asthma COPD (chronic obstructive pulmonary disease) Diabetes Heart problem Hypertension Social History Social History Alcohol intake: unknown Patient Tobacco Use Status: Current everyday Tobacco user Use of substances other than those prescribed or required for medical reasons: Unknown Advance Directives: Yes Advance Directives Information Provided: No Advance Directives on File: No Physical Exam Vital Signs: Vital Signs: Last Vital Signs Temp 98.5 F 12/24/20 18:28 Pulse 105 H 12/24/20 20:17 Resp 16 12/24/20 20:17 BP 145/70 H 12/24/20 20:17 Pulse Ox 98 12/24/20 20:17 Body Mass Index 26.5 vital signs have been reviewed as normal and appeared to be correct. Blood pressure hypertensive 174/95. Heart rate tachycardic at 115. Respiration rate normal. Temperature normal. Oxygen saturation normal. Appearance: Alert. Oriented X3. Anxious and actively vomiting otherwise no other acute distress. Head: Normal external exam. Normocephalic. Eyes: PERRLA. EOMI. Conjunctiva and sclera normal. Eyelids normal. ENT: Pharynx normal. Uvula midline. Moist mucous membranes. No trismus noted. No drooling noted. No muffled voice noted. Neck: Normal inspection. Neck supple. FROM. No adenopathy. No meningeal signs. CVS: Normal heart rate and rhythm. Heart sound normal. No murmurs noted. Pulses normal throughout. Respiratory: No respiratory distress. Painless inspiration. Breath sounds normal. No wheezes/rales/rhonchi noted. Chest nontender. No accessory muscle usage noted or decreased air movement noted. Abdomen: Soft and tenderness diffusely no point tenderness is noted. Nondistended. No guarding. No rigidity. Bowel sounds normal in all 4 quadrants. No distention noted. No organomegaly noted. No visible injury noted. No rebound tenderness. Negative Rovsing sign. Negative obturator's sign. Negative psoas sign. Negative Soares sign. Back: No CVA tenderness. Full range of motion noted. Skin: Skin warm and dry. Normal skin color. Normal skin turgor. No rashes/lesions/lacerations noted. Extremities: Patient with wound to left great toe that appears chronic. No surrounding erythema/fluctuance/drainage noted at this time. Extremities exhibit normal range of motion. Extremities nontender. Neuro: Oriented X 3. No motor deficit. No sensory deficit. Reflexes normal. Normal steady gait. Course Course Course Narrative: 14:15pm - 50-year-old female With a past medical history of diabetes, hypertension and COPD presenting to the ED via EMS with complaints of severe nausea/vomiting with diffuse abdominal pain/cramping since she was prescribed clindamycin and tramadol on 12/23/2020 for a dental pain/infection. Then she returned later on that day yesterday for same complaint she was noted to have an elevated glucose level but no anion gap therefore she was given 2L's of IV fluids and 5 units of subQ insulin her LFTs were also noted to be elevated although at that time she did not have any abdominal tenderness and an ultrasound of her right upper extremity was obtained and was negative for any acute processes. Patient was positive for opioids on tox screen negative for all other drugs. She was sent home and they switched her clindamycin to Levaquin and Flagyl for dental pain/infection/UTI based on the patient's allergies. She reports she also started taking the Levaquin and Flagyl and she is still having the nausea vomiting and severe abdominal pain therefore she came here for further evaluatio n treatment. Plan: Labs, CT scan abdomen and pelvis with IV contrast, UA, drugs of abuse screen, ETOH level. Provide a L of IV fluids, 4 mg of Zofran IV, 2 mg of Ativan IV then re-evaluate. Reevaluation(s) Reevaluation #1: - labs returned white blood cell count 21329. Anion gap 28. Carbon dioxide 18. BUN 22. Random glucose 568. AST/ALT 96/188. Otherwise all other labs appear to be within normal limits. ETOH level negative. - at this time I ordered blood cultures, lactic acid, VBG and acetone level. Patient is receiving another L of IV fluids and 10 units of IV insulin will re- evaluate. Time: 15:30 Reevaluation #2: - lactic acid 1.7. Acetone level positive small amount. COVID swab negative. - CT scan abdomen pelvis revealed distal esophagus is thick walled. Recommend endoscope. This may represent esophagitis. Tumor cannot be excluded. Otherwise bowel pattern is non obstruction. There is no free fluid. Nonobstructing renal calculi. Prominent ovarian structures and cystic changes once seen again otherwise no other acute processes. Time: 17:53 Reevaluation #3: - Patient received 3 L of IV fluids and 10 units of IV insulin and anion gap on repeat labs is now 21 bicarb 19. - repeat glucose 411 - therefore consulted with the hospitalist Dr. Best and she reported she cannot take the patient on the floor until the anion gap is completely close x2 - therefore will give another 10 units of IV insulin, 20 units of subcu Lantus, 4th L of IV fluids and give the patient 10 mg of labetalol IV due to the patient was unable to take her blood pressure medication this morning due to the nausea/vomiting and is now elevated at 184/73 then plan is to repeat a basic metabolic panel after the 4th L and 10 units of IV insulin to admit. Patient understands agrees with this plan. Time: 19:31 Additional Reevaluation(s): - Pending repeat BMP. If anion gap is closed then patient can be admitted to Dr. Best. Sign out to MORGAN Bryant pending above MDM - Nausea/Vomiting/Diarrhea Medical Records Attestation: I reviewed the patient's medical records. Lab Data Attestation: I reviewed the patient's lab results. Result diagrams: 12/24/20 14:32 12/24/20 18:34 Labs: Lab Results 12/24/20 12/24/20 12/24/20 Range/Units 14:32 14:32 14:32 WBC 19.5 H (4.8-10.8) X10*3/uL RBC 5.75 H (4.20-5.50) X10*6/uL Hgb 14.9 (12.0-16.0) g/dl Hct 47.3 H (37-47) % MCV 82.3 (80-98) fL MCH 25.9 L (27.0-33.0) pg MCHC 31.5 (31.0-35.0) g/dl RDW 16.1 H (11.0-16.0) % Plt Count 246 D (160-400) X10*3/uL MPV 12.9 H (9.4-12.3) fL Immature Gran % (Auto) 0.7 H (0.0-0.4) % Neut % (Auto) 89.8 H (45-73) % Lymph % (Auto) 5.2 L (20-40) % Walton % (Auto) 4.0 (2-11) % Eos % (Auto) 0.1 (0-4) % Baso % (Auto) 0.2 (0-2) % Lymph # (Auto) 1.0 L (1.2-4.9) X10*3/uL Walton # (Auto) 0.8 (0.1-1.2) X10*3/uL Eos # (Auto) 0.0 (0.0-0.4) X10*3/uL Baso # (Auto) 0.0 (0.0-0.2) X10*3/uL Abs Immat Gran (auto) 0.13 H (0.00-0.03) X10*3/uL Absolute Neuts (auto) 17.5 H (2.0-8.3) X10*3/uL Absolute Nucleated RBC 0.000 (0.0-0.012) X10*3/uL Nucleated RBC % (auto) 0.0 (0.0-0.2) /100WBC VBG pH (7.32-7.43) VBG pCO2 mmHg VBG pO2 mmHg VBG HCO3 (22-26) mmol/L VBG O2 Saturation % VBG Base Excess mmol/L Sodium 139 (135-145) mmol/L Potassium 4.5 (3.3-5.1) mmol/L Chloride 98 (96-108) mmol/L Carbon Dioxide 18 L (22-29) mmol/L Anion Gap 28 H (12-20) BUN 22 H D (9-16) mg/dL Creatinine 1.25 (0.5-1.4) mg/dL Estim Creat Clear Calc 50.4 Estimated GFR 46 POC Glucose (60-115) mg/dL Random Glucose 568 H* (60-115) mg/dL Lactic Acid (0.5-2.0) mmol/L Calcium 9.1 (8.4-10.2) mg/dL Magnesium 2.0 (1.6-2.6) mg/dL Total Bilirubin 0.7 (0.0-1.0) mg/dL AST 96 H (5-31) U/L ALT 188 H (0-31) U/L Alkaline Phosphatase 114 (39-117) U/L Total Protein 6.2 L (6.5-8.0) g/dL Albumin 3.5 (3.5-5.0) g/dL Lipase 16 (8-78) U/L Beta HCG, Quant < 2 mIU/mL Ethyl Alcohol < 10 mg/dL Acetone, Qual (Negative) COVID-19 (KATHLEEN) (Negative) COVID-19 Clin Com 12/24/20 12/24/20 12/24/20 Range/Units 14:32 15:28 16:40 WBC (4.8-10.8) X10*3/uL RBC (4.20-5.50) X10*6/uL Hgb (12.0-16.0) g/dl Hct (37-47) % MCV (80-98) fL MCH (27.0-33.0) pg MCHC (31.0-35.0) g/dl RDW (11.0-16.0) % Plt Count (160-400) X10*3/uL MPV (9.4-12.3) fL Immature Gran % (Auto) (0.0-0.4) % Neut % (Auto) (45-73) % Lymph % (Auto) (20-40) % Walton % (Auto) (2-11) % Eos % (Auto) (0-4) % Baso % (Auto) (0-2) % Lymph # (Auto) (1.2-4.9) X10*3/uL Walton # (Auto) (0.1-1.2) X10*3/uL Eos # (Auto) (0.0-0.4) X10*3/uL Baso # (Auto) (0.0-0.2) X10*3/uL Abs Immat Gran (auto) (0.00-0.03) X10*3/uL Absolute Neuts (auto) (2.0-8.3) X10*3/uL Absolute Nucleated RBC (0.0-0.012) X10*3/uL Nucleated RBC % (auto) (0.0-0.2) /100WBC VBG pH (7.32-7.43) VBG pCO2 mmHg VBG pO2 mmHg VBG HCO3 (22-26) mmol/L VBG O2 Saturation % VBG Base Excess mmol/L Sodium (135-145) mmol/L Potassium (3.3-5.1) mmol/L Chloride (96-108) mmol/L Carbon Dioxide (22-29) mmol/L Anion Gap (12-20) BUN (9-16) mg/dL Creatinine (0.5-1.4) mg/dL Estim Creat Clear Calc Estimated GFR POC Glucose 471 H* (60-115) mg/dL Random Glucose (60-115) mg/dL Lactic Acid 1.7 (0.5-2.0) mmol/L Calcium (8.4-10.2) mg/dL Magnesium (1.6-2.6) mg/dL Total Bilirubin (0.0-1.0) mg/dL AST (5-31) U/L ALT (0-31) U/L Alkaline Phosphatase (39-117) U/L Total Protein (6.5-8.0) g/dL Albumin (3.5-5.0) g/dL Lipase (8-78) U/L Beta HCG, Quant mIU/mL Ethyl Alcohol mg/dL Acetone, Qual Small H (Negative) COVID-19 (KATHLEEN) (Negative) COVID-19 Clin Com 12/24/20 12/24/20 12/24/20 Range/Units 16:40 16:45 16:48 WBC (4.8-10.8) X10*3/uL RBC (4.20-5.50) X10*6/uL Hgb (12.0-16.0) g/dl Hct (37-47) % MCV (80-98) fL MCH (27.0-33.0) pg MCHC (31.0-35.0) g/dl RDW (11.0-16.0) % Plt Count (160-400) X10*3/uL MPV (9.4-12.3) fL Immature Gran % (Auto) (0.0-0.4) % Neut % (Auto) (45-73) % Lymph % (Auto) (20-40) % Walton % (Auto) (2-11) % Eos % (Auto) (0-4) % Baso % (Auto) (0-2) % Lymph # (Auto) (1.2-4.9) X10*3/uL Walton # (Auto) (0.1-1.2) X10*3/uL Eos # (Auto) (0.0-0.4) X10*3/uL Baso # (Auto) (0.0-0.2) X10*3/uL Abs Immat Gran (auto) (0.00-0.03) X10*3/uL Absolute Neuts (auto) (2.0-8.3) X10*3/uL Absolute Nucleated RBC (0.0-0.012) X10*3/uL Nucleated RBC % (auto) (0.0-0.2) /100WBC VBG pH 7.35 (7.32-7.43) VBG pCO2 31 mmHg VBG pO2 128 mmHg VBG HCO3 17 L (22-26) mmol/L VBG O2 Saturation 99.0 % VBG Base Excess -6.8 mmol/L Sodium (135-145) mmol/L Potassium (3.3-5.1) mmol/L Chloride (96-108) mmol/L Carbon Dioxide (22-29) mmol/L Anion Gap (12-20) BUN (9-16) mg/dL Creatinine (0.5-1.4) mg/dL Estim Creat Clear Calc Estimated GFR POC Glucose 364 H* (60-115) mg/dL Random Glucose (60-115) mg/dL Lactic Acid (0.5-2.0) mmol/L Calcium (8.4-10.2) mg/dL Magnesium (1.6-2.6) mg/dL Total Bilirubin (0.0-1.0) mg/dL AST (5-31) U/L ALT (0-31) U/L Alkaline Phosphatase (39-117) U/L Total Protein (6.5-8.0) g/dL Albumin (3.5-5.0) g/dL Lipase (8-78) U/L Beta HCG, Quant mIU/mL Ethyl Alcohol mg/dL Acetone, Qual (Negative) COVID-19 (KATHLEEN) Negative (Negative) COVID-19 Clin Com See Note 12/24/20 Range/Units 18:34 WBC (4.8-10.8) X10*3/uL RBC (4.20-5.50) X10*6/uL Hgb (12.0-16.0) g/dl Hct (37-47) % MCV (80-98) fL MCH (27.0-33.0) pg MCHC (31.0-35.0) g/dl RDW (11.0-16.0) % Plt Count (160-400) X10*3/uL MPV (9.4-12.3) fL Immature Gran % (Auto) (0.0-0.4) % Neut % (Auto) (45-73) % Lymph % (Auto) (20-40) % Walton % (Auto) (2-11) % Eos % (Auto) (0-4) % Baso % (Auto) (0-2) % Lymph # (Auto) (1.2-4.9) X10*3/uL Walton # (Auto) (0.1-1.2) X10*3/uL Eos # (Auto) (0.0-0.4) X10*3/uL Baso # (Auto) (0.0-0.2) X10*3/uL Abs Immat Gran (auto) (0.00-0.03) X10*3/uL Absolute Neuts (auto) (2.0-8.3) X10*3/uL Absolute Nucleated RBC (0.0-0.012) X10*3/uL Nucleated RBC % (auto) (0.0-0.2) /100WBC VBG pH (7.32-7.43) VBG pCO2 mmHg VBG pO2 mmHg VBG HCO3 (22-26) mmol/L VBG O2 Saturation % VBG Base Excess mmol/L Sodium 143 (135-145) mmol/L Potassium 4.3 (3.3-5.1) mmol/L Chloride 107 (96-108) mmol/L Carbon Dioxide 19 L (22-29) mmol/L Anion Gap 21 H (12-20) BUN 20 H (9-16) mg/dL Creatinine 1.02 (0.5-1.4) mg/dL Estim Creat Clear Calc 61.7 Estimated GFR 58 POC Glucose (60-115) mg/dL Random Glucose 411 H* (60-115) mg/dL Lactic Acid (0.5-2.0) mmol/L Calcium 7.8 L D (8.4-10.2) mg/dL Magnesium (1.6-2.6) mg/dL Total Bilirubin (0.0-1.0) mg/dL AST (5-31) U/L ALT (0-31) U/L Alkaline Phosphatase (39-117) U/L Total Protein (6.5-8.0) g/dL Albumin (3.5-5.0) g/dL Lipase (8-78) U/L Beta HCG, Quant mIU/mL Ethyl Alcohol mg/dL Acetone, Qual (Negative) COVID-19 (KATHLEEN) (Negative) COVID-19 Clin Com Imaging Data CT scan abdomen pelvis IV contrast: Attestation: I personally reviewed and interpreted this imaging study as follows: Radiologist's impression: FINDINGS: LUNG BASES: The visualized lung bases are unremarkable. LIVER, GALLBLADDER, AND BILIARY TREE: The liver is normal in size, shape, and attenuation. No focal hepatic lesion or biliary ductal dilatation is present. The gallbladder is unremarkable with no evidence of radiopaque gallstones, gallbladder wall thickening, or obvious pericholecystic inflammatory changes. PANCREAS: Unremarkable. SPLEEN: Unremarkable. ADRENAL GLANDS: Stable left adrenal nodule from previous of 06/23/2019 KIDNEYS AND URETERS: The kidneys are normal in size, shape, and attenuation. No hydronephrosis, hydroureter, or calculi seen. No perinephric stranding. Small Nonobstructing right renal calculi BLADDER: Unremarkable. GASTROINTESTINAL TRACT: The small and large bowel are unremarkable. The appendix is similar to previous. The outpouching from the cecum is wide but the appendix and one fashion The esophagus appears thickened distally. Fairly significant. ABDOMINAL WALL: No significant hernia is appreciated. LYMPH NODES: Normal. VASCULAR: Atherosclerotic changes. No evidence for aneurysmal change PELVIC VISCERA: Mildly prominent ovarian structures once again seen. OSSEOUS STRUCTURES: Unremarkable. CT/CT abdomen pelvis w con IMPRESSION: The distal esophagus is thick-walled. Recommend endoscopy. This may represent esophagitis. Tumor cannot be excluded. Otherwise bowel pattern is nonobstructing. There is no free fluid. Nonobstructing renal calculi. Prominent ovarian structures and cystic change once again seen Chest x-ray and left foot x-ray: Attestation: I personally reviewed and interpreted this imaging study as follows: Radiologist's impression: Findings; No acute finding. No obvious failure or infiltrate. No effusion. Mediastinal contours are comparable to previous. 3 views of left foot demonstrate soft tissue disruption along the medial aspect of the great toe. There are some densities in the region. One of these may represent a foreign body. Measures 1 mm. Other small densities in the region of the joint may be dystrophic calcification. Bony avulsion cannot be excluded. XR/XR foot LT min 3V IMPRESSION: No acute finding in the chest. Possible loose body within the soft tissue adjacent to the distal phalanx of the first digit left foot. Some small bony densities in the region of the interphalangeal joint may be dystrophic calcification associated with degeneration but avulsion injury cannot be excluded ECG Data Attestation: I personally reviewed and interpreted this ECG as follows: ECG interpretation date: 12/24/20 ECG interpretation time: 17:16 Interpretation: Sinus tachycardia with ventricular rate of 125 with nonspecific T-wave abnormalities no acute ischemic change are noted. Similar when compared to prior EKG 06/23/2020 Discharge Plan Discharge Clinical Impression: Drug-induced nausea and vomiting, Acute dehydration, DKA (diabetic ketoacidosis), UTI (urinary tract infection), Wound of foot Patient Disposition: Admitted As Inpatient
[2020-12-24 15:18] LABS: Alanine Aminotransferase 188 U/L (0-31); Albumin Level 3.5 g/dL (3.5-5.0); Alkaline Phosphatase 114 U/L (39-117); Anion Gap 28 (12-20); Aspartate Amino Transferase 96 U/L (5-31); Bilirubin Total 0.7 mg/dL (0.0-1.0); Blood Urea Nitrogen 22 mg/dL (9-16); Calcium 9.1 mg/dL (8.4-10.2); Carbon Dioxide 18 mmol/L (22-29); Chloride 98 mmol/L (96-108); Creatinine Clr Calc Pharmacy 50.4; Estimated Glomerular Filt Rate 46; Glucose Random 568 mg/dL (60-115); Lipase 16 U/L (8-78); Potassium 4.5 mmol/L (3.3-5.1); Sodium 139 mmol/L (135-145); Total Protein 6.2 g/dL (6.5-8.0)
[2020-12-24 15:19] LABS: HCG Quantitative < 2 mIU/mL
[2020-12-24] MEDS: Insulin Regular, Human 100 UNIT/ML 3 ML VIAL 10 UNIT IVPUSH ×2 (15:28→19:46)
[2020-12-24 15:57] LABS: Glucose, Whole Blood 471 mg/dL (60-115)
[2020-12-24 16:14] LABS: Acetone, serum QL Small (Negative)
[2020-12-24] MEDS: iohexoL 350 MG/ML 100 ML INFUS..BTL IV (16:20)
[2020-12-24 16:48] LABS: Glucose, Whole Blood 364 mg/dL (60-115)
[2020-12-24] MEDS: levoFLOXacin/D5W 750 MG/150 ML PIGGYBACK 100 MG IV (16:51)
[2020-12-24 16:54] VITALS: BP 150/66; PULSE 124; RESP 18; TEMP 36.8; O2SAT 94
[2020-12-24 16:58] LABS: Venous Blood Gas Refer to POC result
[2020-12-24 16:59] LABS: VBG Base Excess -6.8 mmol/L; VBG HCO3 17 mmol/L (22-26); VBG pCO2 31 mmHg; VBG pH 7.35 (7.32-7.43); VBG pO2 128 mmHg
--- NOTE | 2020-12-24 16:59 | ECG_ITS ---
Test Reason : HYPERGLYCEMIA Blood Pressure : / mmHG Vent. Rate : 125 BPM Atrial Rate : 125 BPM P-R Int : 124 ms QRS Dur : 076 ms QT Int : 346 ms P-R-T Axes : 078 070 055 degrees QTc Int : 499 ms Sinus tachycardia Nonspecific T wave abnormality Abnormal ECG When compared with ECG of 23-JUN-2020 17:54, Nonspecific T wave abnormality now evident in Inferior leads Nonspecific T wave abnormality now evident in Lateral leads Referred By: Bethany Clay Electronically Signed By:Gurmeet Gallardo
--- NOTE | 2020-12-24 17:01 | PHA.MEDREC ---
Pharmacy Consult ? Medication Reconciliation Pharmacy has completed the medication reconciliation from her pharmacy claim history as she was AMS.
[2020-12-24 17:11] LABS: Lactic Acid 1.7 mmol/L (0.5-2.0)
[2020-12-24 17:14] LABS: COVID-19 Test Negative (Negative)
[2020-12-24 18:28] VITALS: BP 184/73; PULSE 124; RESP 16; TEMP 36.9; O2SAT 96
[2020-12-24 19:04] LABS: Anion Gap 21 (12-20); Blood Urea Nitrogen 20 mg/dL (9-16); Calcium 7.8 mg/dL (8.4-10.2); Carbon Dioxide 19 mmol/L (22-29); Chloride 107 mmol/L (96-108); Creatinine Clr Calc Pharmacy 61.7; Estimated Glomerular Filt Rate 58; Glucose Random 411 mg/dL (60-115); Potassium 4.3 mmol/L (3.3-5.1); Sodium 143 mmol/L (135-145)
[2020-12-24] MEDS: Insulin Glargine,Hum.rec.anlog 100 UNIT/ML 10 ML VIAL 20 UNIT SUBCUT (19:24)
[2020-12-24] MEDS: Labetalol HCL 100 MG/20 ML VIAL 10 MG IVPUSH (19:46)
[2020-12-24 20:17] VITALS: BP 145/70; PULSE 105; RESP 16; O2SAT 98
[2020-12-24 20:58] LABS: Glucose, Whole Blood 328 mg/dL (60-115)
[2020-12-24 22:20] VITALS: BP 145/68; PULSE 100; RESP 16; O2SAT 99
[2020-12-24 22:57] LABS: Anion Gap 12 (12-20); Blood Urea Nitrogen 19 mg/dL (9-16); Calcium 7.7 mg/dL (8.4-10.2); Carbon Dioxide 23 mmol/L (22-29); Chloride 113 mmol/L (96-108); Creatinine Clr Calc Pharmacy 65.6; Estimated Glomerular Filt Rate > 60; Glucose Random 267 mg/dL (60-115); Potassium 4.2 mmol/L (3.3-5.1); Sodium 144 mmol/L (135-145)
== END 2020-12-25 00:04 | disposition left against medical advice (07) ==
PROVIDERS: Physician Assistant Medical; Emergency Provider Emergency Medicine
DX: R11.2 Nausea with vomiting, unspecified (principal); T36.8X5A Adverse effect of other systemic antibiotics, initial encounter; Y92.009 Unspecified place in unspecified non-institutional (private) residence as the place of occurrence of the external cause; E11.10 Type 2 diabetes mellitus with ketoacidosis without coma; E86.0 Dehydration; N39.0 Urinary tract infection, site not specified; K04.7 Periapical abscess without sinus; S91.302A Unspecified open wound, left foot, initial encounter; I10 Essential (primary) hypertension; J44.9 Chronic obstructive pulmonary disease, unspecified; X58.XXXA Exposure to other specified factors, initial encounter; Y93.9 Activity, unspecified; Y92.9 Unspecified place or not applicable; Y99.9 Unspecified external cause status; Z20.822 Contact with and (suspected) exposure to COVID-19
CPT/HCPCS: 36415; 71045; 73630; 74177; 80048; 80053; 82009; 82077; 82803; 82947; 83605; 83690; 83735; 84702; 85025; 87040; 87635; 93005; 96361; 96365; 96375; 96376; 99285; J1956; J2060; J2405; Q9967

== ENCOUNTER 2020-12-25 11:34 | Inpatient (IN) | payer MEDICAID, SELFPAY ==
[2020-12-25] VITALS (10 sets, daily range): BP systolic 177–223; BP diastolic 71–92; PULSE 84–109; RESP 16–19; TEMP 36.8–37.8; O2SAT 95–98; BMI 26.5
--- NOTE | ~2020-12-25 | CT_ITS ---
EXAMINATION: CT HEAD WITHOUT CONTRAST CLINICAL INFORMATION: High blood pressure COMPARISON: None TECHNIQUE: Contiguous axial imaging was performed from the skull base to vertex without intravenous administration of contrast. This CT examination was performed using dose optimization techniques as appropriate, variously including the following: *Automated exposure control *Adjustment of mA and/or kV according to patient size (this includes techniques or standardized protocols for targeted exams where dose is matched to indication/reason for exam; i.e. extremities or head) *Use of iterative reconstruction technique DLP: 699 mGy-cm FINDINGS: There is no evidence of acute intracranial hemorrhage or territorial infarction. No abnormal mass effect or midline shift is seen. Luke to white matter differentiation is well preserved. No extra-axial fluid collections are identified. The ventricles are normal in size. There is no abnormal attenuation within the brain parenchyma. The osseous structures and soft tissues are normal. The mastoid air cells and visualized portions of the paranasal sinuses are well aerated. CT/CT head/brain wo con IMPRESSION: No acute intracranial process seen.
--- NOTE | 2020-12-25 11:51 | ED_ITS ---
HPI - General Adult General Chief complaint: Abdominal Pain Stated complaint: abd pain x3 days Time Seen by Provider: 12/25/20 11:36 Source: patient Mode of arrival: ambulatory Limitations: no limitations History of Present Illness HPI narrative: Patient presents to ED for abdominal pain. Patient was seen yesterday in the ER for the same thing and was admitted for DKA, UTI, [place] [id number] the patient sign out against medical advice and refused admission. Patient returns today with the same symptoms. Patient noncompliant with meds. Related Data Home Medications Medication Instructions Recorded Confirmed albuterol sulfate [ProAir HFA] 2 puff PO Q4H PRN 12/24/20 12/24/20 aspirin 1 tab PO DAILY 12/24/20 12/24/20 atorvastatin 1 tab PO DAILY 12/24/20 12/24/20 fluticasone propion-salmeterol 2 puff INHALATION BID 12/24/20 12/24/20 [Advair HFA] gabapentin 2 cap PO BEDTIME 12/24/20 12/24/20 glipizide-metformin 2 tab PO BIDWM 12/24/20 12/24/20 lisinopril-hydrochlorothiazide 1 tab PO DAILY 12/24/20 12/24/20 montelukast 1 tab PO QPM 12/24/20 12/24/20 umeclidinium [Incruse Ellipta] 1 puff PO DAILY 12/24/20 12/24/20 Previous Rx's Medication Instructions Recorded oxycodone 5 mg PO Q4H PRN #14 cap 04/22/20 metoclopramide HCl [Reglan] 10 mg PO Q6H PRN #60 tab 06/23/20 pantoprazole [Protonix] 40 mg PO DAILY #30 tab 06/23/20 ondansetron HCl [Zofran] 4 mg PO Q8H PRN #10 tab 07/05/20 levofloxacin 750 mg PO DAILY 7 Days #7 tab 12/23/20 metronidazole [Flagyl] 500 mg PO Q12H 7 Days #14 tab 12/23/20 tramadol 50 mg PO TID PRN #10 tab 12/23/20 Allergies Allergy/AdvReac Type Severity Reaction Status Date / Time Penicillins [PENICILLINS] Allergy Severe RASH Verified 04/21/20 22:53 amoxicillin [AMOXICILLIN] Allergy Intermediate HIVES Verified 04/21/20 22:53 Review of Systems 2 Review of Systems: Yes all other systems are reviewed and are negative Constitutional: Constitutional: Reports as per HPI and Reports no additional constitutional complaints Eyes: Eyes: Reports as per HPI and Reports no additional eye complaints ENT: Reports system reviewed and no additional complaints, except as documented and Reports as per HPI Cardiovascular: Cardiovascular: Reports as per HPI and Reports no additional cardiovascular complaints Respiratory: Respiratory: Reports as per HPI and Reports no additional respiratory complaints Gastrointestinal: Gastrointestinal: Reports as per HPI, Reports no additional gastrointestinal complaints, Reports abdominal pain and Reports nausea Musculoskeletal: Musculoskeletal: Reports no additional musculoskeletal complaints and Reports as per HPI Neurologic: Reports system reviewed and no additional complaints, except as documented and Reports as per HPI Psychiatric: Psychiatric: Reports no additional psychiatric complaints [facility] Past Medical History Medical History Asthma COPD (chronic obstructive pulmonary disease) Diabetes Heart problem Hypertension Social History Social History Alcohol intake: unknown Patient Tobacco Use Status: Current everyday Tobacco user Use of substances other than those prescribed or required for medical reasons: Unknown Advance Directives: No Advance Directives Information Provided: Yes Patient : No Physical Exam Vital Signs: Vital Signs: Last Vital Signs Temp 98.2 F 12/25/20 14:13 Pulse 100 12/25/20 15:50 Resp 18 12/25/20 14:13 BP 200/79 H 12/25/20 15:50 Pulse Ox 96 12/25/20 14:13 Body Mass Index 26.5 Const: General: cooperative, healthy appearing, comfortable, well developed, alert and acute distress Orientation/consciousness: patient oriented x3 HENMT: Head: Yes normal to inspection, Yes No palpable skull fracture present, Yes normocephalic, Yes atraumatic, No abrasion, No Acrocyanosis present, No Witt's sign, No contusion, No cranial bruits, No hematoma, No laceration, No occipital foramen tenderness, No palpable skull fracture, No raccoon eyes, No scalp lesion, No scalp tenderness, No Temporal artery tenderness present and No periorbital ecchymosis Eyes: General: appearance normal, both eyes and all related structures Neck: Neck: Yes normal visual inspection, Yes full ROM, Yes no lymphadenopathy, Yes no meningeal signs, Yes trachea midline, Yes supple and No tender Chest: Chest palpation & inspection: normal inspection of the chest and normal palpation of entire chest wall Resp: Effort & Inspection: normal respiratory effort and able to speak in complete sentences Cardio: Jugular venous distension: no JVD Heart sounds: S1 normal heart sound present and S2 normal heart sound present GI: Inspection: Yes normal to inspection and No abdominal wall ecchymosis Palpation (GI): Tenderness to palpation present (GI) in the LLQ and in the RLQ, no guarding and not rigid : General: No CVA tenderness and Yes no CVA tenderness Back/Spine/Pelvis: Back: no CVA tenderness, No CVA tenderness and No back tenderness Skin: General skin exam: no rashes or lesions noted and elasticity normal Neuro: Other: Negative slurred speech. Negative pronator drift. All extremities equal strength 5+. Negative facial droop. [id number] and rapid hand movement intact. Negative Romberg General: patient oriented x3, gait normal, no meningeal signs and CN's II-XI intact bilaterally Cranial nerves: Yes CN's II-XII intact bilaterally Extrem: General: Yes normal to inspection and Yes full ROM Psych: Appearance: grossly normal, well kempt and not disheveled Course Course Course Narrative: Due to patient having white count [id number] yesterday will do repeat labs and repeat urine. Will evaluate to ensure patient longer in DKA. No need for any repeat abdominal CT scan. Patient had normal abdominal CT scan yesterday which showed esophagitis. Reevaluation(s) Reevaluation #1: Patient initial labs came back normal. Brother came to the ED states patient is not compliant with her meds. he states patient is not taking diabetic or hypertensive meds. Patient blood pressure elevated now systolic to 100 will do EKG and troponin. We will give labetalol IV Time: 14:54 Reevaluation #2: Patient is still hypertensive. Patient's 1st troponin came back positive. Patient to be admitted to the hospital for hypertensive emergency. Patient denies any chest pain or shortness of breath. Patient sleeping in bed comfortably but blood pressure was elevated. Patient not complying with meds as per family. Dr. Anne recommends oral amlodipine. Time: 16:53 Medical Decision Making MDM Narrative Medical decision making narrative: Hypertensive emergency Lab Data Result diagrams: 12/25/20 12:06 12/25/20 12:06 Labs: Lab Results 12/25/20 12/25/20 12/25/20 Range/Units 12:06 12:06 12:06 WBC 9.7 (4.8-10.8) X10*3/uL RBC 5.32 (4.20-5.50) X10*6/uL Hgb 13.9 (12.0-16.0) g/dl Hct 43.9 (37-47) % MCV 82.5 (80-98) fL MCH 26.1 L (27.0-33.0) pg MCHC 31.7 (31.0-35.0) g/dl RDW 16.1 H (11.0-16.0) % Plt Count 225 (160-400) X10*3/uL MPV 11.6 (9.4-12.3) fL Immature Gran % (Auto) 0.5 H (0.0-0.4) % Neut % (Auto) 82.3 H (45-73) % Lymph % (Auto) 11.6 L (20-40) % [place] % (Auto) 4.7 (2-11) % Eos % (Auto) 0.6 (0-4) % Baso % (Auto) 0.3 (0-2) % Lymph # (Auto) 1.1 L (1.2-4.9) X10*3/uL [place] # (Auto) 0.5 (0.1-1.2) X10*3/uL Eos # (Auto) 0.1 (0.0-0.4) X10*3/uL Baso # (Auto) 0.0 (0.0-0.2) X10*3/uL Abs Immat Gran (auto) 0.05 H (0.00-0.03) X10*3/uL Absolute Neuts (auto) 8.0 (2.0-8.3) X10*3/uL Absolute Nucleated RBC 0.000 (0.0-0.012) X10*3/uL Nucleated RBC % (auto) 0.0 (0.0-0.2) /100WBC PT 12.3 (9.9-13.0) SEC INR 1.1 (0.9-1.1) APTT 29.2 (24.1-38.0) SEC Sodium 142 (135-145) mmol/L Potassium 4.2 (3.3-5.1) mmol/L Chloride 104 (96-108) mmol/L Carbon Dioxide 27 (22-29) mmol/L Anion Gap 15 (12-20) BUN 14 (9-16) mg/dL Creatinine 0.85 (0.5-1.4) mg/dL Estim Creat Clear Calc 74.1 Estimated GFR > 60 Random Glucose 291 H (60-115) mg/dL Lactic Acid (0.5-2.0) mmol/L Calcium 8.5 D (8.4-10.2) mg/dL Total Bilirubin 0.6 (0.0-1.0) mg/dL Direct Bilirubin 0.2 (0.0-0.5) mg/dL AST 48 H D (5-31) U/L ALT 142 H (0-31) U/L Alkaline Phosphatase 96 (39-117) U/L Troponin I High Sens (<3.5-17.0) ng/L Total Protein 6.1 L (6.5-8.0) g/dL Albumin 3.5 (3.5-5.0) g/dL Lipase 47 (8-78) U/L Beta HCG, Quant mIU/mL Acetone, Qual (Negative) 12/25/20 12/25/20 12/25/20 Range/Units 12:06 12:06 14:52 WBC (4.8-10.8) X10*3/uL RBC (4.20-5.50) X10*6/uL Hgb (12.0-16.0) g/dl Hct (37-47) % MCV (80-98) fL MCH (27.0-33.0) pg MCHC (31.0-35.0) g/dl RDW (11.0-16.0) % Plt Count (160-400) X10*3/uL MPV (9.4-12.3) fL Immature Gran % (Auto) (0.0-0.4) % Neut % (Auto) (45-73) % Lymph % (Auto) (20-40) % [place] % (Auto) (2-11) % Eos % (Auto) (0-4) % Baso % (Auto) (0-2) % Lymph # (Auto) (1.2-4.9) X10*3/uL [place] # (Auto) (0.1-1.2) X10*3/uL Eos # (Auto) (0.0-0.4) X10*3/uL Baso # (Auto) (0.0-0.2) X10*3/uL Abs Immat Gran (auto) (0.00-0.03) X10*3/uL Absolute Neuts (auto) (2.0-8.3) X10*3/uL Absolute Nucleated RBC (0.0-0.012) X10*3/uL Nucleated RBC % (auto) (0.0-0.2) /100WBC PT (9.9-13.0) SEC INR (0.9-1.1) APTT (24.1-38.0) SEC Sodium (135-145) mmol/L Potassium (3.3-5.1) mmol/L Chloride (96-108) mmol/L Carbon Dioxide (22-29) mmol/L Anion Gap (12-20) BUN (9-16) mg/dL Creatinine (0.5-1.4) mg/dL Estim Creat Clear Calc Estimated GFR Random Glucose (60-115) mg/dL Lactic Acid 1.1 (0.5-2.0) mmol/L Calcium (8.4-10.2) mg/dL Total Bilirubin (0.0-1.0) mg/dL Direct Bilirubin (0.0-0.5) mg/dL AST (5-31) U/L ALT (0-31) U/L Alkaline Phosphatase (39-117) U/L Troponin I High Sens 23.7 H* (<3.5-17.0) ng/L Total Protein (6.5-8.0) g/dL Albumin (3.5-5.0) g/dL Lipase (8-78) U/L Beta HCG, Quant < 2 mIU/mL Acetone, Qual Small H (Negative) ECG Data Interpretation: Sinus tachycardia. Ventricular rate 107. Pr interval 138. QRS 83. QTC by 15. Negative STEMI Discharge Plan Discharge Clinical Impression: Hypertension, Hypertensive emergency Patient Disposition: Admitted As Inpatient
[2020-12-25 12:13] LABS: MANUAL DIFF FLAG NO
[2020-12-25] MEDS: 0.9 % Sodium Chloride 1,000 ML 999 ML IV ×2 (12:14→15:05)
[2020-12-25] MEDS: Famotidine/PF 20 MG/2 ML VIAL IVPUSH (12:15)
[2020-12-25] MEDS: ondansetron HCL 4 MG/2 ML VIAL IVPUSH (12:15)
[2020-12-25] MEDS: diphenhydrAMINE HCL 50 MG/ML VIAL IVPUSH (12:15)
[2020-12-25] MEDS: Magnesium Hydrox/Alum Hydrox 30 ML ORAL.SUSP PO (12:15)
[2020-12-25] MEDS: PHENobarb/Hyoscy/Atropine/Scop 10 ML ELIXIR PO (12:15)
[2020-12-25 12:22] LABS: Basophils Percent Auto 0.3 % (0-2); Eosinophils Absolute Auto 0.1 X10*3/uL (0.0-0.4); Eosinophils Percent Auto 0.6 % (0-4); Hematocrit 43.9 % (37-47); Hemoglobin 13.9 g/dl (12.0-16.0); Imm Gran Abs Auto 0.05 X10*3/uL (0.00-0.03); Imm Gran Pct Auto 0.5 % (0.0-0.4); Lymphocytes Absolute Auto 1.1 X10*3/uL (1.2-4.9); Lymphocytes Percent Auto 11.6 % (20-40); Mean Corpuscular HGB Conc 31.7 g/dl (31.0-35.0); Mean Corpuscular Hemoglobin 26.1 pg (27.0-33.0); Mean Corpuscular Volume 82.5 fL (80-98); Mean Platelet Volume 11.6 fL (9.4-12.3); Monocytes Absolute Auto 0.5 X10*3/uL (0.1-1.2); Monocytes Percent Auto 4.7 % (2-11); Neutrophils Percent Auto 82.3 % (45-73); Platelet Count 225 X10*3/uL (160-400); Red Blood Count 5.32 X10*6/uL (4.20-5.50); Red Cell Distribution Width 16.1 % (11.0-16.0); White Blood Count 9.7 X10*3/uL (4.8-10.8)
[2020-12-25 12:31] LABS: Lactic Acid 1.1 mmol/L (0.5-2.0)
[2020-12-25 12:36] LABS: INTERNATIONAL NORM RATIO 1.1 (0.9-1.1); Prothrombin Time 12.3 SEC (9.9-13.0)
[2020-12-25 12:39] LABS: Partial Thromboplastin Time 29.2 SEC (24.1-38.0)
[2020-12-25 12:41] LABS: Alanine Aminotransferase 142 U/L (0-31); Albumin Level 3.5 g/dL (3.5-5.0); Alkaline Phosphatase 96 U/L (39-117); Anion Gap 15 (12-20); Aspartate Amino Transferase 48 U/L (5-31); Bilirubin Direct 0.2 mg/dL (0.0-0.5); Bilirubin Total 0.6 mg/dL (0.0-1.0); Blood Urea Nitrogen 14 mg/dL (9-16); Calcium 8.5 mg/dL (8.4-10.2); Carbon Dioxide 27 mmol/L (22-29); Chloride 104 mmol/L (96-108); Creatinine Clr Calc Pharmacy 74.1; Estimated Glomerular Filt Rate > 60; Glucose Random 291 mg/dL (60-115); Lipase 47 U/L (8-78); Potassium 4.2 mmol/L (3.3-5.1); Sodium 142 mmol/L (135-145); Total Protein 6.1 g/dL (6.5-8.0)
[2020-12-25 12:44] LABS: HCG Quantitative < 2 mIU/mL
[2020-12-25 13:15] LABS: Acetone, serum QL Small (Negative)
--- NOTE | 2020-12-25 13:45 | ECG_ITS ---
Test Reason : ABD PAIN Blood Pressure : / mmHG Vent. Rate : 107 BPM Atrial Rate : 107 BPM P-R Int : 138 ms QRS Dur : 082 ms QT Int : 386 ms P-R-T Axes : 072 037 077 degrees QTc Int : 515 ms Sinus tachycardia Otherwise normal ECG When compared with ECG of 24-DEC-2020 17:16, Nonspecific T wave abnormality no longer evident in Inferior leads Nonspecific T wave abnormality no longer evident in Lateral leads Referred By: Abebe Alejo Electronically Signed By:Gurmeet Gallardo
[2020-12-25] MEDS: Labetalol HCL 100 MG/20 ML VIAL 10 MG IVPUSH (15:05)
[2020-12-25 15:26] LABS: Troponin-I High Sensitivity 23.7 ng/L (<3.5-17.0)
[2020-12-25] MEDS: Labetalol HCL 100 MG/20 ML VIAL 20 MG IVPUSH (15:50)
--- NOTE | 2020-12-25 16:56 | P.HPHOSP_ITS ---
History of Present Illness Date of Service: 12/25/20 Chief Complaint: Abdominal pain, vomiting A 50 years old lady with PMH of hypertension, diabetes, COPD among others who presented to the hospital with a complaint of abdominal pain and vomiting for the last 3 days. The patient reported that she was started on clindamycin and tramadol 3 days a early for a dental infection antibiotics were changed to Levaquin and Flagyl but symptoms persisted. She visited the emergency 3 times already before this current visit. She was lethargic did not want to talk much but reported her pain is epigastric associated with vomiting and is almost constant all the time. The patient reports doing taking all her medications at home including the blood pressure once. Her she denies any fever, chills, dizziness, shortness of breath and cough pain or even diarrhea or urinary symptoms. In the emergency a CT scan was done yesterday showing possible inflammatory versus malignancy changes in the end of the esophagus. Today her blood pressure is significantly elevated around 200 systolic. Admitted for further evaluation and treatment. Review of Systems Review of Systems: No fever, chills but reports generalized weakness No chest pain, palpitation No shortness of breath or coughing Epigastric abdominal pain, associated with nausea or vomiting No urinary symptoms No any rash or wounds PMFSH Medical History Asthma COPD (chronic obstructive pulmonary disease) Diabetes Heart problem Hypertension Social History Alcohol intake: unknown Patient Tobacco Use Status: Current everyday Tobacco user Use of substances other than those prescribed or required for medical reasons: Unknown Advance Directives: No Advance Directives Information Provided: Yes Patient : No Meds Allergies Allergy/AdvReac Type Severity Reaction Status Date / Time Penicillins [PENICILLINS] Allergy Severe RASH Verified 04/21/20 22:53 amoxicillin [AMOXICILLIN] Allergy Intermediate HIVES Verified 04/21/20 22:53 Active Medications: Current Medications Generic Name Dose Route Start Last Admin Trade Name Freq PRN Reason Stop Dose Admin Labetalol HCl 20 mg 12/25/20 15:29 12/25/20 15:50 Labetalol Hcl 100 Mg/20 Ml Vial IVPUSH 20 mg Q20M PRN Administration SBP > 160 Pharmacy Consult 1 each 12/25/20 16:45 Consult Rx Perform Med Rec MISCELLANE 12/25/20 16:46 ONCE ONE Sodium Chloride 3 ml 12/26/20 00:00 0.9 % Sodium Chloride Flush 3 Ml Syringe [facility] Medications Medication Instructions Recorded Confirmed Last Taken Type albuterol sulfate [ProAir HFA] 2 puff PO Q4H PRN 12/24/20 12/24/20 Unknown History aspirin 1 tab PO DAILY 12/24/20 12/24/20 Unknown History atorvastatin 1 tab PO DAILY 12/24/20 12/24/20 Unknown History fluticasone propion-salmeterol 2 puff INHALATION BID 12/24/20 12/24/20 Unknown History [Advair HFA] gabapentin 2 cap PO BEDTIME 12/24/20 12/24/20 Unknown History glipizide-metformin 2 tab PO BIDWM 12/24/20 12/24/20 Unknown History lisinopril-hydrochlorothiazide 1 tab PO DAILY 12/24/20 12/24/20 Unknown History montelukast 1 tab PO QPM 12/24/20 12/24/20 Unknown History umeclidinium [Incruse Ellipta] 1 puff PO DAILY 12/24/20 12/24/20 Unknown History Physical Exam Vital Signs and Narrative: Vital Signs: Last Vital Signs Temp 98.2 F 12/25/20 14:13 Pulse 100 12/25/20 15:50 Resp 18 12/25/20 14:13 BP 200/79 H 12/25/20 15:50 Pulse Ox 96 12/25/20 14:13 Body Mass Index 26.5 Const: Other: Constitutional : Alert, sleepy but wakes up with stimulation, looks sick and tired Neck : Normal inspection, Supple Cardiovascular : RRR, S1 S2, tachycardia, no lower extremity edema Respiratory : Good bilateral air entry, no crackles, wheezes or rhonchi Gastrointestinal: soft, lax, Normal bowel sounds, epigastric tenderness Skin : Warm/Dry Neurological : Alert & oriented about self and place, No focal deficit Results Labs CBC and Chem 7: 12/25/20 12:06 12/25/20 12:06 Labs: Laboratory Results - last 24 hr 12/25/20 12/25/20 12/25/20 12:06 12:06 12:06 MCV 82.5 MCH 26.1 L MCHC 31.7 RDW 16.1 H Plt Count 225 MPV 11.6 Immature Gran % (Auto) 0.5 H Neut % (Auto) 82.3 H Lymph % (Auto) 11.6 L [place] % (Auto) 4.7 Eos % (Auto) 0.6 Baso % (Auto) 0.3 Lymph # (Auto) 1.1 L [place] # (Auto) 0.5 Eos # (Auto) 0.1 Baso # (Auto) 0.0 Abs Immat Gran (auto) 0.05 H Absolute Neuts (auto) 8.0 Absolute Nucleated RBC 0.000 Nucleated RBC % (auto) 0.0 PT 12.3 INR 1.1 APTT 29.2 Anion Gap 15 Estim Creat Clear Calc 74.1 Estimated GFR > 60 Random Glucose 291 H Lactic Acid Calcium 8.5 D Total Bilirubin 0.6 Direct Bilirubin 0.2 AST 48 H D ALT 142 H Alkaline Phosphatase 96 Troponin I High Sens Total Protein 6.1 L Albumin 3.5 Lipase 47 Beta HCG, Quant Acetone, Qual 12/25/20 12/25/20 12/25/20 12:06 12:06 14:52 MCV MCH MCHC RDW Plt Count MPV Immature Gran % (Auto) Neut % (Auto) Lymph % (Auto) [place] % (Auto) Eos % (Auto) Baso % (Auto) Lymph # (Auto) [place] # (Auto) Eos # (Auto) Baso # (Auto) Abs Immat Gran (auto) Absolute Neuts (auto) Absolute Nucleated RBC Nucleated RBC % (auto) PT INR APTT Anion Gap Estim Creat Clear Calc Estimated GFR Random Glucose Lactic Acid 1.1 Calcium Total Bilirubin Direct Bilirubin AST ALT Alkaline Phosphatase Troponin I High Sens 23.7 H* Total Protein Albumin Lipase Beta HCG, Quant < 2 Acetone, Qual Small H Imaging Radiologist's Impressions: Impressions Head CT 12/25/20 15:24 IMPRESSION: No acute intracranial process seen. Assessment and Plan (1) Hypertensive emergency: Status: Acute (2) Drug-induced nausea and vomiting: Status: Acute (3) Acute dehydration: Status: Acute A 50 years old lady with PMH of hypertension, diabetes, COPD among others who presented to the hospital with a complaint of abdominal pain and vomiting for the last 3 days. hypertensive emergency Associated with elevated blood pressure with troponin Secondary to noncompliance from having nausea and vomiting Received IV labetalol with little response To give IV hydralazine Start amlodipine 5 mg Start home dose lisinopril 20 mg Continue to monitor on telemetry Can use labetalol or hydralazine IV if sustained systolic above 180 Oral thrush Could be secondary to candidiasis from antibiotic usage Start dislocation IV Start oral swish and swallow Abdominal pain, nausea, vomiting Abnormal CT scan showing distal esophagus wall thickening To treat for candidal esophagitis To get GI evaluation for possible endoscopy Start omeprazole twice Daily Maalox as needed Diabetes type 2 Diabetic diet SSI DVT PPX Heparin Quality Stroke Does the patient have a stroke diagnosis?: No VTE Prior VTE?: No VTE Risk Level:: Medical - moderate - high VTE Device Contraindication: Treatment Not Indicated VTE Drug Contraindication: N/A - Med Ordered
[2020-12-25] MEDS: hydrALAZINE HCl 20 MG/ML VIAL 5 MG IVPUSH (17:42)
[2020-12-25] MEDS: Heparin Sodium,Porcine 5,000 UNIT/ML VIAL 5000 UNIT SUBCUT (17:42)
[2020-12-25] MEDS: Omeprazole 40 MG CAPSULE.DR PO (17:43)
[2020-12-25] MEDS: lisinopriL 20 MG TABLET PO (17:43)
[2020-12-25] MEDS: amLODIPine Besylate 5 MG TABLET PO (17:44)
[2020-12-25] MEDS: Nystatin Oral Susp 500,000 UNIT/5 ML ORAL.SUSP 400000 UNIT PO ×2 (17:44→20:15)
--- NOTE | 2020-12-25 17:47 | PHA.MEDREC ---
Pharmacy Consult ? Medication Reconciliation Pharmacy has completed the medication reconciliation.
[2020-12-25 18:08] LABS: Troponin-I High Sensitivity 27.1 ng/L (<3.5-17.0)
[2020-12-25] MEDS: Fluconazole in NaCl,Iso-Osm 400 MG/200 ML PIGGYBACK 100 MG IV (18:58)
[2020-12-25 20:04] LABS: Glucose, Whole Blood 183 mg/dL (60-115)
[2020-12-25] MEDS: Insulin Lispro 100 UNIT/ML 3 ML VIAL SUBCUT (20:14)
[2020-12-25 20:20] LABS: COVID-19 Test Negative (Negative)
--- NOTE | 2020-12-25 20:24 | PC.NURSE ---
pt assisted to bedside commode, given bath wipes. pt requested shower, but encouraged to wait until she was in her room. only shower in er is in BH pod.
--- NOTE | 2020-12-25 20:25 | PC.NURSE ---
PT GIVEN ICE CHIPS, WILL PROGRESS TO CLEAR LIQUIDS AND DIABETIC DIET IF SHE CONTINUES TO TOLERATE.
--- NOTE | 2020-12-25 20:29 | PC.NURSE ---
PT HAS WOUND TO RIGHT GREAT TOE, UNSURE IF PROVIDER IS AWARE. EDEMA TO RIGHT UPPER EXTREMITY.
[2020-12-25 20:33] LABS: Glucose Urine UA >=1000 MG/DL (NEG); Leukocyte Esterase Urine NEG (NEG); Nitrite Urine NEG (NEG); Specific Gravity - Urine >= 1.030 (1.005-1.025); Urine Blood NEG (NEG); Urine Ketones 40 MG/DL (NEG); Urine Protein 2+ MG/DL (NEG-TRACE)
[2020-12-25 20:35] LABS: Appearance Urine CLEAR; Color Urine YELLOW
[2020-12-25 20:37] LABS: UPreg QC Valid YES; Urine Pregnancy NEGATIVE (NEGATIVE)
[2020-12-25 20:46] LABS: Bacteria Urine TRACE /LPF; Mucus Urine TRACE /LPF; Squamous Epithelial Cell Urine 1+ /LPF
[2020-12-25 22:09] LABS: Glucose, Whole Blood 161 mg/dL (60-115)
[2020-12-26] VITALS (15 sets, daily range): BP systolic 120–222; BP diastolic 56–98; PULSE 68–97; RESP 16–20; TEMP 36.6–37; O2SAT 92–98; BMI 29.2
[2020-12-26] MEDS: 0.9 % Sodium Chloride Flush 3 ML SYRINGE IVFLUSH ×3 (02:36→16:24)
[2020-12-26] MEDS: Heparin Sodium,Porcine 5,000 UNIT/ML VIAL 5000 UNIT SUBCUT ×3 (02:37→16:21)
[2020-12-26 04:41] LABS: Glucose, Whole Blood 134 mg/dL (60-115)
--- NOTE | 2020-12-26 04:41 | PC.NURSE ---
REPORT CALLED TO FLOOR, PT READY FOR TRANSPORT.
[2020-12-26] MEDS: Omeprazole 40 MG CAPSULE.DR PO ×2 (04:58→16:14)
[2020-12-26] MEDS: Labetalol HCL 100 MG/20 ML VIAL 20 MG IVPUSH (06:10)
[2020-12-26 06:12] LABS: Hematocrit 39.9 % (37-47); Hemoglobin 12.4 g/dl (12.0-16.0); Mean Corpuscular HGB Conc 31.1 g/dl (31.0-35.0); Mean Corpuscular Hemoglobin 25.7 pg (27.0-33.0); Mean Corpuscular Volume 82.8 fL (80-98); Mean Platelet Volume 11.9 fL (9.4-12.3); Platelet Count 202 X10*3/uL (160-400); Red Blood Count 4.82 X10*6/uL (4.20-5.50)
--- NOTE | 2020-12-26 06:24 | PC.NURSE ---
Patient to floor approx 0500. Refusing to comply with high fall precautions. BP 222/108. Patient extremely unsteady, stumbling into patten. Patient adamant about taking a shower despite education on high possibility of a stroke or cardiac event. Patient screaming at this RN and LEGAL ADMINISTRATIVE ASSISTANT, claiming she was left in a soiled bed all night, and that nursing staff is fucking with her Patient kept claiming to be covered in dog feces. (Patient was clean and dry upon arrival to floor at 0500) MD and nursing supervisor dry cleaning updated. Per MD, allow patient to shower if she is insistent, but advise her that we don't recommend it based on her BP. Shower supervised by LEGAL ADMINISTRATIVE ASSISTANT and nursing supervisor dry cleaning. Patient returned to bed safely at this time. PRN labetalol given with follow up bp 192/88. Camera in room for safety.
[2020-12-26 06:44] LABS: Anion Gap 14 (12-20); Blood Urea Nitrogen 9 mg/dL (9-16); Calcium 7.9 mg/dL (8.4-10.2); Carbon Dioxide 25 mmol/L (22-29); Chloride 104 mmol/L (96-108); Estimated Glomerular Filt Rate > 60; Glucose Random 140 mg/dL (60-115); Potassium 3.4 mmol/L (3.3-5.1); Sodium 140 mmol/L (135-145)
[2020-12-26 07:27] LABS: Glucose, Whole Blood 186 mg/dL (60-115)
[2020-12-26] MEDS: Insulin Lispro 100 UNIT/ML 3 ML VIAL SUBCUT ×3 (07:47→16:14)
[2020-12-26] MEDS: Nystatin Oral Susp 500,000 UNIT/5 ML ORAL.SUSP 400000 UNIT PO ×4 (08:17→21:13)
[2020-12-26] MEDS: lisinopriL 10 MG TABLET 30 MG PO (09:28)
[2020-12-26] MEDS: hydroCHLOROthiazide 50 MG TABLET PO (09:29)
[2020-12-26] MEDS: Aspirin Enteric Coated 81 MG TABLET.DR PO (09:29)
[2020-12-26] MEDS: amLODIPine Besylate 10 MG TABLET PO (09:29)
[2020-12-26 11:50] LABS: Glucose, Whole Blood 168 mg/dL (60-115)
[2020-12-26] MEDS: Acetaminophen 325 MG TABLET 650 MG PO (12:51)
[2020-12-26] MEDS: hydrALAZINE HCl 50 MG TABLET PO (13:47)
--- NOTE | 2020-12-26 15:17 | P.PNIM_ITS ---
Subjective Subjective Date of Service: 12/26/20 Interval History: the patient was seen and evaluated this morning Laying in bed, feels better than yesterday Epigastric pain improved significantly, thrush in her mouth also improving Denies any fever, chills or shortness of breath No reported other overnight events. Systemic review: No fever, chills but reporting feeling weakness No chest pain, palpitation No shortness of breath or coughing No abdominal pain, nausea or vomiting No urinary symptoms Left big toe dry wound Physical Exam Vital Signs: Vital Signs: Last Vital Signs Temp 97.8 F 12/26/20 11:28 Pulse 83 12/26/20 11:28 Resp 18 12/26/20 11:28 BP 174/64 H 12/26/20 13:47 Pulse Ox 98 12/26/20 11:28 Body Mass Index 29.2 Const: Other: Constitutional : Alert, oriented, mildly anxious Neck : Normal inspection, Supple Cardiovascular : RRR, S1 S2, tachycardia, no lower extremity edema Respiratory : Good bilateral air entry, no crackles, wheezes or rhonchi Gastrointestinal: soft, lax, Normal bowel sounds, no more epigastric tenderness Skin : Warm/Dry, Left big toe dry wound with no signs of infection Neurological : Alert & oriented about self and place, No focal deficit Objective Data Current Medications Generic Name Dose Route Start Last Admin Trade Name Freq PRN Reason Stop Dose Admin Acetaminophen 650 mg 12/25/20 16:47 12/26/20 12:51 Acetaminophen 325 Mg Tablet PO 650 mg Q6H PRN Administration Pain, Mild (Pain Scale 1-3) Acetaminophen/Butalbital/Caffeine 1 tab 12/26/20 13:26 Butalb/Acetamin/Caff 50/325/40 Tablet PO Q4H PRN Headache Al Hydroxide/Mg Hydroxide 30 ml 12/25/20 16:47 Magnesium Hydrox/Alum Hydrox 30 Ml Oral.Susp PO Q4H PRN Heartburn/Nausea Amlodipine Besylate 10 mg 12/26/20 09:00 12/26/20 09:29 Amlodipine Besylate 10 Mg Tablet PO 10 mg DAILY MÓNICA Administration Protocol Aspirin 81 mg 12/26/20 09:00 12/26/20 09:29 Aspirin Enteric Coated 81 Mg Tablet. PO 81 mg DAILY MÓNICA Administration Atorvastatin Calcium 10 mg 12/26/20 21:00 Atorvastatin Calcium 10 Mg Tablet PO BEDTIME MÓNICA Gabapentin 600 mg 12/26/20 21:00 Gabapentin 300 Mg Capsule PO BEDTIME [facility] Heparin Sodium (Porcine) 5,000 unit 12/25/20 17:00 12/26/20 08:17 Heparin Sodium,Porcine 5,000 Unit/Ml Vial SUBCUT 5,000 unit Q8H [facility] Administration Hydralazine HCl 50 mg 12/26/20 13:30 12/26/20 13:47 Hydralazine Hcl 50 Mg Tablet PO 50 mg TID [facility] Administration Protocol Hydrochlorothiazide 50 mg 12/26/20 09:00 12/26/20 09:29 Hydrochlorothiazide 50 Mg Tablet PO 50 mg DAILY [facility] Administration Protocol Fluconazole 100 mg/ IV 50 mls @ 50 mls/hr 12/26/20 17:00 Miscellaneous Supplies IV Q24H [facility] Insulin Human Lispro 0 unit 12/25/20 21:00 12/26/20 12:02 Insulin Lispro 100 Unit/Ml 3 Ml Vial SUBCUT 2 unit QIDACHS [facility] Administration Protocol Labetalol HCl 20 mg 12/25/20 15:29 12/26/20 06:10 Labetalol Hcl 100 Mg/20 Ml Vial IVPUSH 20 mg Q20M PRN Administration SBP > 160 Lisinopril 30 mg 12/26/20 09:00 12/26/20 09:28 Lisinopril 10 Mg Tablet PO 30 mg DAILY [facility] Administration Protocol Montelukast Sodium 10 mg 12/26/20 21:00 Montelukast Sodium 10 Mg Tablet PO BEDTIME [facility] Morphine Sulfate 2 mg 12/25/20 16:50 Morphine Sulfate 4 Mg/Ml Cartridge IVPUSH Q4H PRN Pain, Severe (Pain Scale 7-10) Nystatin 400,000 unit 12/25/20 17:00 12/26/20 12:51 Nystatin Oral Susp 500,000 Unit/5 Ml Oral.Susp PO 400,000 unit QID [facility] Administration Protocol Omeprazole 40 mg 12/25/20 17:00 12/26/20 04:58 Omeprazole 40 Mg Capsule.Dr PO 40 mg BID@0630,1630 [facility] Administration Ondansetron HCl 4 mg 12/25/20 16:47 Ondansetron Hcl 4 Mg/2 Ml Vial IVPUSH Q8H PRN Nausea and Vomiting Sodium Chloride 3 ml 12/26/20 00:00 12/26/20 07:48 0.9 % Sodium Chloride Flush 3 Ml Syringe IVFLUSH 3 ml QSHIFT MÓNICA Administration Labs CBC & Chem 7: 12/26/20 05:11 12/26/20 05:11 Labs: Laboratory Results - last 24 hr 12/25/20 12/25/20 12/25/20 14:52 17:26 20:00 WBC RBC Hgb Hct MCV MCH MCHC RDW Plt Count MPV Absolute Nucleated RBC Nucleated RBC % (auto) Sodium Potassium Chloride Carbon Dioxide Anion Gap BUN Creatinine Estim Creat Clear Calc Estimated GFR POC Glucose 183 H Random Glucose Calcium Troponin I High Sens 23.7 H* 27.1 H* Urine Color Urine Appearance Urine pH Ur Specific [place] Urine Protein Urine Glucose (UA) Urine Ketones Urine Blood Urine Nitrite Ur Leukocyte Esterase Urine RBC Urine WBC Ur Squamous Epith Cells Urine Bacteria Urine Mucus Urine Yeast Urine Test COVID-19 (KATHLEEN) COVID-[employer] 12/25/20 12/25/20 12/25/20 20:01 20:23 20:23 WBC RBC Hgb Hct MCV MCH MCHC RDW Plt Count MPV Absolute Nucleated RBC Nucleated RBC % (auto) Sodium Potassium Chloride Carbon Dioxide Anion Gap BUN Creatinine Estim Creat Clear Calc Estimated GFR POC Glucose Random Glucose Calcium Troponin I High Sens Urine Color YELLOW Urine Appearance CLEAR Urine pH 6.0 Ur Specific [place] >= 1.030 H Urine Protein 2+ H Urine Glucose (UA) >=1000 H Urine Ketones 40 Urine Blood NEG Urine Nitrite NEG Ur Leukocyte Esterase NEG Urine RBC 1-4 Urine WBC 1-4 Ur Squamous Epith Cells 1+ Urine Bacteria TRACE Urine Mucus TRACE Urine Yeast TRACE Urine Test NEGATIVE COVID-19 (KATHLEEN) Negative COVID-19 [employer] Com See Note 12/25/20 12/26/20 12/26/20 22:02 04:37 05:11 WBC 8.0 RBC 4.82 Hgb 12.4 Hct 39.9 MCV 82.8 MCH 25.7 L MCHC 31.1 RDW 16.0 Plt Count 202 MPV 11.9 Absolute Nucleated RBC 0.000 Nucleated RBC % (auto) 0.0 Sodium Potassium Chloride Carbon Dioxide Anion Gap BUN Creatinine Estim Creat Clear Calc Estimated GFR POC Glucose 161 H 134 H Random Glucose Calcium Troponin I High Sens Urine Color Urine Appearance Urine pH Ur Specific [place] Urine Protein Urine Glucose (UA) Urine Ketones Urine Blood Urine Nitrite Ur Leukocyte Esterase Urine RBC Urine WBC Ur Squamous Epith Cells Urine Bacteria Urine Mucus Urine Yeast Urine Test COVID-19 (KATHLEEN) COVID-19 Clin Com 12/26/20 12/26/20 12/26/20 05:11 07:08 10:54 WBC RBC Hgb Hct MCV MCH MCHC RDW Plt Count MPV Absolute Nucleated RBC Nucleated RBC % (auto) Sodium 140 Potassium 3.4 Chloride 104 Carbon Dioxide 25 Anion Gap 14 BUN 9 Creatinine 0.66 Estim Creat Clear Calc 100.0 Estimated GFR > 60 POC Glucose 186 H 168 H Random Glucose 140 H D Calcium 7.9 L D Troponin I High Sens Urine Color Urine Appearance Urine pH Ur Specific [place] Urine Protein Urine Glucose (UA) Urine Ketones Urine Blood Urine Nitrite Ur Leukocyte Esterase Urine RBC Urine WBC Ur Squamous Epith Cells Urine Bacteria Urine Mucus Urine Yeast Urine Test COVID-19 (KATHLEEN) COVID-19 Clin Com Microbiology Microbiology Results: Microbiology 12/25/20 12:16 Blood Culture - Preliminary Blood - Venous No growth after 24 hours. 12/25/20 12:06 Blood Culture - Preliminary Blood - Venous No growth after 24 hours. Quality Stroke Does the patient have a stroke diagnosis?: No VTE Prior VTE?: No VTE Risk Level:: Medical - moderate - high VTE Device Contraindication: Treatment Not Indicated VTE Drug Contraindication: N/A - Med Ordered Assessment and Plan (1) Hypertensive emergency: Status: Acute (2) Drug-induced nausea and vomiting: Status: Inactive (3) Acute dehydration: Status: Inactive Assessment and Plan: A 50 years old lady with PMH of hypertension, diabetes, COPD among others who presented to the hospital with a complaint of abdominal pain and vomiting for the last 3 days. hypertensive emergency Still have any high readings Secondary to noncompliance Increase amlodipine to 10 mg Increase lisinopril 30 mg Start hydralazine 50 mg t.i.d. Continue to monitor on telemetry Can use labetalol or hydralazine IV if sustained systolic above 180 Oral thrush Could be secondary to candidiasis from antibiotic usage Continue Diflucan IV Continue Nystatin oral swish and swallow Abdominal pain, nausea, vomiting Abnormal CT scan showing distal esophagus wall thickening To treat for candidal esophagitis Pending GI evaluation for possible endoscopy Continue omeprazole twice Daily Maalox as needed Diabetes type 2 Diabetic diet SSI DVT PPX Heparin
--- NOTE | 2020-12-26 15:43 | PC.NURSE ---
Addendum entered by Gayle Jeffery RN 12/26/20 16:43: pt complaining of headache again took BP 120/62 . Admin Prn fiorcet. Effectiveness pending Original Note: PT BP 170-180s in the morning. Pt did complain of a headache as well - MD adjusted BP meds and added fiorcet prn for headache. Headache resolved at the moment with some tylenol and rest (and after mid day hydralazine). BP at 1500 vital check was manual 126/56 - let MD know of significant change. Hydralzine changed from 25 to 50 TID. Will closely monitor BP along with any s/s hyper/hypertension and report close monitoring of BP to oncoming RN. okayed pt to shower. Pt aware to pull string if any symptoms come to pt while in the shower. Will update w any changes
[2020-12-26 16:12] LABS: Glucose, Whole Blood 202 mg/dL (60-115)
[2020-12-26] MEDS: Butalb/Acetamin/Caff 50/325/40 TABLET 1 TAB PO (16:17)
[2020-12-26] MEDS: Fluconazole in NaCl,Iso-Osm 100 MG in Container,Empty 0 ML 50 MG IV (16:34)
--- NOTE | 2020-12-26 17:51 | P.EN_ITS ---
Event Note Date of Service: 12/26/20 Event Note: GI Consult-Full note dictated--Hx via patient, EMR, and RN Imp: 50 yo female admitted with HTN, N/V, upper abdominal pain, and oral thrush. She has chronic GERD. She describes a negative upper endoscopy at [facility] approx. 3-4 months ago. She denies dysphagia nor odynophagia. She has been eating here and feels better in regard to her GI sx. Her CT suggests some inflammation and/or mass in distal esophagus, Diff dx: Esophgeal candidiasis, acid reflux with erosive esophagitis, and/or an esophageal neoplasm(though unlikely if she indeed had a negative EGD earlier this year at [facility]). Rec: I did offer her an EGD with MAC while here to definitively exclude any esophageal neoplasm/mass or other worrisome pathology. However, she adamantly refused this despite my detailed explanation in regard to needing to R/O neoplasm. She states that she will be going home by Monday. We did review the importance of F/U in this regard. I advised her to meet with her PCP shortly after discharge such that they can review things with her and decide about the need for a F/U EGD as an outpatient. Other than that I would recommend completing her treatment for the oral thrush and continuing an oral PPI daily. Please contact me if she changes her mind or if I can be of any further assistance. Thanks
[2020-12-26 19:51] LABS: Glucose, Whole Blood 165 mg/dL (60-115)
[2020-12-26] MEDS: Gabapentin 300 MG CAPSULE 600 MG PO (21:12)
[2020-12-26] MEDS: hydrALAZINE HCl 25 MG TABLET PO (21:13)
[2020-12-26] MEDS: Atorvastatin Calcium 10 MG TABLET PO (21:13)
[2020-12-26] MEDS: Montelukast Sodium 10 MG TABLET PO (21:13)
--- NOTE | 2020-12-26 23:55 | CONS_ITS ---
DATE OF SERVICE: 12/26/2020 REASON FOR CONSULTATION: History of gastroesophageal reflux and abnormal CAT scan of the esophagus. HISTORY OF PRESENT ILLNESS: This has been obtained from the patient, medical record, and the nursing staff. The patient is a 50-year-old female, who was admitted to the hospital with hypertension out of control. She has been having some issues with recent nausea and vomiting, as well as some upper abdominal pain. The patient does describe a reported negative upper endoscopy 3 or 4 months ago at [facility]. She describes that from a GI standpoint, she was feeling well up until the past few days. She had been having some nausea and vomiting, but without any sign of hematemesis nor coffee-grounds emesis. She was having some upper abdominal discomfort, but no jaundice. She reports that her bowel movements have been fairly regular other than some occasional diarrhea. There has been no reported hematochezia nor melena. She was noted to have oral thrush and was started on some Diflucan. However, she denies any odynophagia nor any specific dysphagia at home. Her workup here included a CAT scan of the abdomen and pelvis on December 24 that describes some thickening of the distal esophagus, although without any definitive mass. However, the radiologist did recommend endoscopy to definitively exclude any type of tumor. MEDICATIONS: At home included albuterol, aspirin, atorvastatin, Advair, gabapentin, glipizide, lisinopril with hydrochlorothiazide, montelukast, and Incruse. Her medications here include acetaminophen, amlodipine, aspirin, atorvastatin, Fioricet p.r.n., omeprazole 40 mg b.i.d., IV Diflucan, gabapentin, hydralazine, insulin, labetalol p.r.n., lisinopril, montelukast, morphine p.r.n., omeprazole 40 mg b.i.d., ondansetron p.r.n. PAST MEDICAL HISTORY: Hypertension. COPD. She denies any history of [place] or stroke. She does have diabetes. Her only surgery is a LEEP procedure and foot surgery. She does have gastroesophageal reflux. Reported negative upper endoscopy at [facility] several months ago as described above. Hyperlipidemia. SOCIAL HISTORY: She does smoke. She denies alcohol nor drug use. She is single, but reports living with the same partner for many years. FAMILY HISTORY: Noncontributory. REVIEW OF SYSTEMS: CONSTITUTIONAL: She reports that her appetite has been fairly good at home. CARDIAC: No chest pain. PULMONARY: No cough. No hemoptysis. GASTROINTESTINAL: As above. URINARY: No dysuria. No hematuria. NEUROLOGIC: No headache or seizures. PHYSICAL EXAMINATION: GENERAL: The patient is a pleasant, alert, cooperative female, in no distress. She appears very comfortable. SKIN: Warm and dry. HEENT: Anicteric sclerae. NECK: Supple. CARDIAC: Normal S1 and S2. ABDOMEN: Soft, nondistended. Normal bowel sounds. Nontender. LABORATORY DATA: CAT scan as above. She also had an ultrasound of the abdomen describing a negative exam other than some tenderness over the gallbladder area. There was no evidence of any gallstones nor cholecystitis. White blood cell count 8000, hemoglobin 12.4, platelets 202,000. PT 12.3 with INR of 1.1. Normal electrolytes. BUN 9, creatinine 0.7, total bilirubin was 0.6, AST 48, ALT 142, albumin 3.5, alkaline phosphatase 96, lipase 47. She had a normal liver profile in June. Alcohol level was nondetectable. COVID was negative. IMPRESSION: In regard to the patient's abnormal CAT scan and upper GI complaints, things seem to be stable in that regard. However, I did recommend an upper endoscopy with monitored anesthesia care prior to discharge. However, she reports that she is planning to go home by tomorrow and adamantly refused the upper endoscopy while an inpatient. I did advise her of our concern regarding the abnormal CAT scan and suggestion of a possible esophageal mass and neoplasm. However, she adamantly refused it nonetheless. We also discussed that this might be related to some acid reflux and inflammation on that basis, and/or a component of some esophageal candidiasis. As such, I would recommend continuing the oral treatment with omeprazole as well as continuing the treatment for the presumed oral thrush and possible esophageal candidiasis. However, since she refused to have the endoscopy here, I did have a detailed discussion with her regarding the need for her to follow up with her primary care physician shortly after discharge to discuss things further. At that point, they could decide together about whether or not she should have an endoscopy, although if indeed she had a negative endoscopy short while ago that would make a neoplasm less likely. Nonetheless, I did advise her to be sure to follow up with her primary care physician and review this with them as soon as possible after she is discharged from here. She seems to have a good understanding of that and said she would do that. Other than that, she seems stable. I also advised her of the elevated LFTs and that she should follow up with her primary care physician in that regard as well to see if they normalize, in which case she would not need any further workup if they do remain elevated, then she could see her catcher plug in [place] as well. This has all been discussed in detail with the patient and she is comfortable with that plan. I did advise her that if she changes her mind or other issues arise, they can contact me and we can always proceed with inpatient upper endoscopy if so desired. Thank you for this consultation. MD NILESH Brody/AMIRAH / [phone]
[2020-12-27] MEDS: 0.9 % Sodium Chloride Flush 3 ML SYRINGE IVFLUSH ×2 (01:20→08:18)
[2020-12-27 03:31] VITALS: BP 153/66; PULSE 93; RESP 16; TEMP 36.1; O2SAT 96
[2020-12-27 05:56] LABS: Anion Gap 12 (12-20); Blood Urea Nitrogen 8 mg/dL (9-16); Calcium 8.3 mg/dL (8.4-10.2); Carbon Dioxide 30 mmol/L (22-29); Chloride 98 mmol/L (96-108); Creatinine Clr Calc Pharmacy 95.6; Estimated Glomerular Filt Rate > 60; Glucose Random 212 mg/dL (60-115); Potassium 3.1 mmol/L (3.3-5.1); Sodium 137 mmol/L (135-145)
[2020-12-27] MEDS: Omeprazole 40 MG CAPSULE.DR PO (06:25)
[2020-12-27 07:21] VITALS: BP 170/86; PULSE 88; RESP 18; TEMP 36.8; O2SAT 98
[2020-12-27 07:27] LABS: Glucose, Whole Blood 195 mg/dL (60-115)
[2020-12-27] MEDS: Insulin Lispro 100 UNIT/ML 3 ML VIAL SUBCUT ×2 (08:17→11:33)
[2020-12-27] MEDS: Heparin Sodium,Porcine 5,000 UNIT/ML VIAL 5000 UNIT SUBCUT (08:51)
[2020-12-27] MEDS: Nystatin Oral Susp 500,000 UNIT/5 ML ORAL.SUSP 400000 UNIT PO (08:51)
[2020-12-27 08:52] VITALS: BP 170/86; PULSE 88
[2020-12-27] MEDS: lisinopriL 10 MG TABLET 30 MG PO (08:52)
[2020-12-27] MEDS: hydrALAZINE HCl 25 MG TABLET PO (08:52)
[2020-12-27] MEDS: amLODIPine Besylate 10 MG TABLET PO (08:52)
[2020-12-27] MEDS: hydroCHLOROthiazide 50 MG TABLET PO (08:53)
[2020-12-27] MEDS: Aspirin Enteric Coated 81 MG TABLET.DR PO (08:53)
--- NOTE | 2020-12-27 11:09 | PM.DS ---
DS: Providers Provider Date of Service: 12/27/20 Date of admission: 12/25/20 16:47 Primary care physician: Unknown Physician Consults: 12/25/20 17:09 Consult to Gastroenterology Routine Consulting Provider: Jayson Macdonald Reason for consultation: Abdominal pain, N/V, abnormal CT distal esophagus wall thickening DS: Diagnosis Discharge Diagnosis (1) Hypertensive emergency: Status: Resolved (2) Drug-induced nausea and vomiting: Status: Inactive (3) Acute dehydration: Status: Inactive (4) Nausea and vomiting: Status: Acute (5) Oral thrush: Status: Acute (6) Dehydration: Status: Acute (7) Abnormal CT of the abdomen: Status: Acute DS: Medications Discharge Medications Home Medications: Home Medications Medication Instructions Recorded Confirmed Advair HFA 2 puff INHALATION BID 12/24/20 12/25/20 Incruse Ellipta 1 puff PO DAILY 12/24/20 12/25/20 albuterol sulfate [ProAir HFA] 2 puff PO Q4H PRN 12/24/20 12/25/20 aspirin 1 tab PO DAILY 12/24/20 12/25/20 atorvastatin 1 tab PO DAILY 12/24/20 12/25/20 gabapentin 2 cap PO BEDTIME 12/24/20 12/25/20 glipizide-metformin 2 tab PO BIDWM 12/24/20 12/25/20 montelukast 1 tab PO QPM 12/24/20 12/25/20 Previous Rx's Medication Instructions Recorded amlodipine 10 mg PO DAILY 30 Days #30 tab 12/27/20 hydralazine 25 mg PO TID 30 Days #90 tab 12/27/20 hydrochlorothiazide 50 mg PO DAILY 30 Days #30 tab 12/27/20 lisinopril 30 mg PO DAILY 30 Days #90 tab 12/27/20 nystatin 400,000 unit PO QID 7 Days #112 ml 12/27/20 omeprazole 40 mg PO DAILY 30 Days #30 cap 12/27/20 DS: Summary Hospital Course Hospital Course: Admission note HPI A 50 years old lady with PMH of hypertension, diabetes, COPD among others who presented to the hospital with a complaint of abdominal pain and vomiting for the last 3 days. The patient reported that she was started on clindamycin and tramadol 3 days a early for a dental infection antibiotics were changed to Levaquin and Flagyl but symptoms persisted. She visited the emergency 3 times already before this current visit. She was lethargic did not want to talk much but reported her pain is epigastric associated with vomiting and is almost constant all the time. The patient reports doing taking all her medications at home including the blood pressure once. Her she denies any fever, chills, dizziness, shortness of breath and cough pain or even diarrhea or urinary symptoms. In the emergency a CT scan was done yesterday showing possible inflammatory versus malignancy changes in the end of the esophagus. Today her blood pressure is significantly elevated around 200 systolic. Admitted for further evaluation and treatment. Hospital course The patient was admitted for treatment of hypertensive emergency. Troponin trended down S if her elevated at of presentation. Blood pressure was significantly elevated with systolic above 200 over within normal diastolic breathing. The patient was treated with IV hydralazine and labetalol and started on oral medications of amlodipine, lisinopril, hydralazine and hydrochlorothiazide with fair response. Blood pressure remains on the higher end and needs further adjustments as outpatient. She was noted to have oral thrush treated with nystatin and Diflucan with good response as the abdominal pain nausea and vomiting all resolved. She was able to tolerate diet. A CT scan of the abdomen was concerning for distal esophagus wall thickening. Evaluated by Gastroenterology who recommended doing an endoscopy but the patient refused doing it during the hospital stay and decided to go back home and to follow-up with her dissolver operator as outpatient. To start her on omeprazole. Start amlodipine and hydralazine Increase lisinopril and hydrochlorothiazide dosage continue statin for 1 more week Start omeprazole 40 mg daily to follow-up with her PCP and GI physician as outpatient Time Spent with Patient Time attestation: Total time spent providing and/or coordinating discharge services: Discharge coordination time: Greater than 30 minutes Quality: Stroke Does the patient have a stroke diagnosis?: No Physical Exam Vital Signs: Vital Signs: Last Vital Signs Temp 98.2 F 12/27/20 07:21 Pulse 88 12/27/20 08:52 Resp 18 12/27/20 07:21 BP 170/86 H 12/27/20 08:52 Pulse Ox 98 12/27/20 07:21 Body Mass Index 29.2 Const: Other: Constitutional : Alert, oriented Neck : Normal inspection, Supple Cardiovascular : RRR, S1 S2, tachycardia, no lower extremity edema Respiratory : Good bilateral air entry, no crackles, wheezes or rhonchi Gastrointestinal: soft, lax, Normal bowel sounds, no epigastric tenderness Skin : Warm/Dry, Left big toe dry wound with no signs of infection Neurological : Alert & oriented , No focal deficit DS: Data Data Completed and Pending Labs on day of discharge: Laboratory Results - last 24 hr 12/26/20 12/26/20 12/26/20 10:54 16:08 19:40 Sodium Potassium Chloride Carbon Dioxide Anion Gap BUN Creatinine Estim Creat Clear Calc Estimated GFR POC Glucose 168 H 202 H 165 H Random Glucose Calcium 12/27/20 12/27/20 04:52 07:20 Sodium 137 Potassium 3.1 L Chloride 98 Carbon Dioxide 30 H Anion Gap 12 BUN 8 L Creatinine 0.69 Estim Creat Clear Calc 95.6 Estimated GFR > 60 POC Glucose 195 H Random Glucose 212 H D Calcium 8.3 L Preliminary micro results at discharge 12/25/20 12:16 Blood Culture - Preliminary Blood - Venous No growth after 24 hours. 12/25/20 12:06 Blood Culture - Preliminary Blood - Venous No growth after 24 hours. Discharge Plan Discharge Patient Disposition: Home, Self-Care Discharge Diagnosis: Hypertensive emergency Esophagus wall thickening Referrals: Physician,Unknown [Primary Care Provider] - 1 Week Discharge Medications: New nystatin 100,000 unit/mL Suspension 400,000 unit PO QID 7 Days Qty: 112 RF: 0 hydrochlorothiazide 50 mg Tablet 50 mg PO DAILY 30 Days Qty: 30 RF: 0 hydralazine 25 mg Tablet 25 mg PO TID 30 Days Qty: 90 RF: 0 omeprazole 40 mg Capsule,Delayed Release(Dr/Ec) 40 mg PO DAILY 30 Days Qty: 30 RF: 0 amlodipine 10 mg Tablet 10 mg PO DAILY 30 Days Qty: 30 RF: 0 lisinopril 10 mg Tablet 30 mg PO DAILY 30 Days Qty: 90 RF: 0 Continued atorvastatin 10 mg tablet 1 tab PO DAILY RF: 0 aspirin 81 mg tablet,delayed release (DR/EC) 1 tab PO DAILY RF: 0 gabapentin 300 mg capsule 2 cap PO BEDTIME RF: 0 montelukast 10 mg tablet 1 tab PO QPM RF: 0 albuterol sulfate [ProAir HFA] 90 mcg/actuation HFA aerosol inhaler 2 puff PO Q4H PRN (Reason: wheezing) RF: 0 glipizide-metformin 5-500 mg tablet 2 tab PO BIDWM RF: 0 Advair HFA 115-21 mcg/actuation HFA aerosol inhaler 2 puff inhalation BID RF: 0 Incruse Ellipta 62.5 mcg/actuation blister with device 1 puff PO DAILY RF: 0 Discontinued lisinopril-hydrochlorothiazide 20-12.5 mg tablet 1 tab PO DAILY RF: 0 Diet: advance to usual diet and low salt diet Activity on Discharge: As tolerated Stand Alone Forms: Patient Portal Discharge page Care Plan Goals: Read below Health Concerns: Read below Plan of Treatment: You were admitted to the hospital for treatment significantly elevated blood pressure readings. IV and oral medications added with fair response. Your blood pressure is still running on the higher end. You will need to take your medications as prescribed and monitor your blood pressure at home. And image for your abdomen was consistent with esophagus wall thickening. You were evaluated by Gastroenterology but refused to do endoscopy to evaluate the finding. You were complaining of abdominal pain and oral thrush that was treated with nystatin swish and swallow. To continue that at discharge. Assessment: Take blood pressure medications as prescribed, monitor your blood pressure at home and report 1 week readings to your PCP. Continue statin for 1 more week Start omeprazole daily To follow-up with Gastroenterology as outpatient for an endoscopy to evaluate the esophagus wall thickening To follow-up with PCP for close monitoring of your blood pressures. Discharge Date/Time: 12/27/20 11:49
[2020-12-27 11:22] VITALS: BP 135/62; PULSE 85; RESP 16; TEMP 36.6; O2SAT 96
[2020-12-27 11:27] LABS: Glucose, Whole Blood 246 mg/dL (60-115)
--- NOTE | 2020-12-27 12:32 | MHC.CM.PN ---
CM MET WITH PT AND HER S/O WHO WAS AT BEDSIDE. PT REPORTS SHE LIVES WITH HER S/O AND IS INDEPENDENT WITH ALL CARE. PT REPORTS SHE HAS ALL OF THE DME SHE NEEDS WHICH INCLUDES DM SUPPLIES AND A BP CUFF. PT DENIES USING ANY [facility] OR COMMUNITY SERVICES; PT COMPLETED A HCP TODAY NAMING HER S/O ASHLEY MOELLER ([phone]) HER AGENT. PT REPORTS SHE SEES A PCP AT [facility] ON [facility] IN [place] BUT SHE DOES NOT KNOW THE NAME. PT DISCHARGED HOME TODAY WITH NO SERVICES S/O PROVIDED TRANSPORTATION
== END 2020-12-27 11:49 | disposition home or self-care (01) | DRG 199 ==
LOC: HO.ED 16:55 → HO.EDOVER 17:13 → HO.IMC 12-26 03:27
PROVIDERS: Physician Assistant; Admitting Provider Student in an Organized Health Care Education/Training Program; Emergency Provider Internal Medicine; Visit Provider Student in an Organized Health Care Education/Training Program
DX: I16.1 Hypertensive emergency (principal); B37.0 Candidal stomatitis; E86.0 Dehydration; K21.9 Gastro-esophageal reflux disease without esophagitis; N39.0 Urinary tract infection, site not specified; F17.210 Nicotine dependence, cigarettes, uncomplicated; Z71.6 Tobacco abuse counseling; Z91.14 Patient's other noncompliance with medication regimen; Z20.822 Contact with and (suspected) exposure to COVID-19; Z88.0 Allergy status to penicillin; Z79.82 Long term (current) use of aspirin; Z79.899 Other long term (current) drug therapy
CPT/HCPCS: 36415; 70450; 80048; 80053; 80076; 81001; 81025; 82009; 82947; 83605; 83690; 84484; 84702; 85025; 85027; 85610; 85730; 87040; 87635; 93005; 97162; 99285; J1200; J1450; J2405

== ENCOUNTER 2021-02-07 06:15 | Emergency (ER) | payer MEDICAID, SELFPAY ==
--- NOTE | ~2021-02-07 | XR_ITS ---
EXAMINATION: XR CHEST CLINICAL INFORMATION: Back pain, lung pain COMPARISON: 12/24/2020 TECHNIQUE: 2 views of the chest were obtained. FINDINGS: The lungs are clear with no focal consolidation. No evidence of pneumothorax, pulmonary edema, or pleural effusions. The cardiomediastinal silhouette is unremarkable. No acute osseous findings. XR/XR chest 2V IMPRESSION: No acute cardiopulmonary findings.
[2021-02-07 06:17] VITALS: BP 135/76; PULSE 107; RESP 20; TEMP 36.6; O2SAT 98; BMI 24.7
[2021-02-07 07:02] LABS: COVID-19 Test Negative (Negative); IDNOW Serial# 9DD0AD1C
[2021-02-07] MEDS: oxyCODONE HCl Immed Release 5 MG TABLET PO (08:27)
[2021-02-07] MEDS: diazePAM 2 MG TABLET PO (08:27)
[2021-02-07] MEDS: Lidocaine 4 % Patch ADH..PATCH 1 PATCH TRANSDERMA (08:28)
--- NOTE | 2021-02-07 08:39 | ED_ITS ---
HPI - Back Pain/Injury General Chief Complaint: Back Pain/Injury Stated Complaint: back pain Time Seen by Provider: 02/07/21 08:06 Source: patient and family Mode of arrival: ambulatory Limitations: no limitations History of Present Illness HPI Narrative: 50-year-old female with a past medical history of COPD, diabetes, hypertension here with complaints of right upper back pain . Denies any injury or trauma. No heavy lifting or falls. Patient tells me she does have chronic cough and shortness breath secondary to underlying COPD. She did run out of her home albuterol. Denies any chest pain, abdominal pain, vomiting or diarrhea. No fevers or chills or urinary symptoms. Pain is worsened with movement, deep breathing, coughing. No leg swelling or pain. Related Data Home Medications Medication Instructions Recorded Confirmed albuterol sulfate 90 mcg/actuation 2 puff PO Q4H PRN 12/24/20 12/25/20 aerosol inhaler (ProAir HFA) aspirin 81 mg tablet,delayed 1 tab PO DAILY 12/24/20 12/25/20 release atorvastatin 10 mg tablet 1 tab PO DAILY 12/24/20 12/25/20 fluticasone propionate 115 2 puff INHALATION BID 12/24/20 12/25/20 mcg-salmeterol 21 mcg/actuation HFA inhaler (Advair HFA) gabapentin 300 mg capsule 2 cap PO BEDTIME 12/24/20 12/25/20 glipizide 5 mg-metformin 500 mg 2 tab PO BIDWM 12/24/20 12/25/20 tablet montelukast 10 mg tablet 1 tab PO QPM 12/24/20 12/25/20 umeclidinium 62.5 mcg/actuation 1 puff PO DAILY 12/24/20 12/25/20 blister powder for inhalation (Incruse Ellipta) Previous Rx's Medication Instructions Recorded amlodipine 10 mg tablet 10 mg PO DAILY 30 Days #30 tab 12/27/20 hydralazine 25 mg tablet 25 mg PO TID 30 Days #90 tab 12/27/20 hydrochlorothiazide 50 mg tablet 50 mg PO DAILY 30 Days #30 tab 12/27/20 lisinopril 10 mg tablet 30 mg PO DAILY 30 Days #90 tab 12/27/20 nystatin 100,000 unit/mL oral 400,000 unit PO QID 7 Days #112 ml 12/27/20 suspension omeprazole 40 mg capsule,delayed 40 mg PO DAILY 30 Days #30 cap 12/27/20 release albuterol sulfate 90 mcg/actuation 2 inh INHALATION Q4H PRN #1 ea 02/07/21 breath activated powder inhaler cyclobenzaprine 10 mg tablet 10 mg PO TID PRN #10 tab 02/07/21 ketorolac 10 mg tablet 10 mg PO Q8H PRN #15 tab 02/07/21 lidocaine 5 % topical patch 1 patch TOPICAL DAILY #15 ea 02/07/21 (Lidoderm) Allergies Allergy/AdvReac Type Severity Reaction Status Date / Time Penicillins [PENICILLINS] Allergy Severe RASH Verified 02/07/21 06:17 amoxicillin [AMOXICILLIN] Allergy Intermediate HIVES Verified 02/07/21 06:17 Review of Systems Review of Systems: Yes all other systems are reviewed and are negative Constitutional: Constitutional: Reports no additional constitutional complaints, Denies body ache(s), Denies chills, Denies fever(s), Denies headache(s) and Denies weakness Eyes: Eyes: Reports no additional eye complaints and Denies change in vision ENT: Reports system reviewed and no additional complaints, except as documented, Denies dizziness, Denies headache(s), Denies nasal congestion, Denies nasal discharge and Denies neck pain Cardiovascular: Cardiovascular: Reports no additional cardiovascular complaints, Denies chest pain, Denies leg edema and Reports dyspnea (chronic ) Respiratory: Respiratory: Reports no additional respiratory complaints, Denies cough (chronic ) and Reports dyspnea (chronic ) Gastrointestinal: Gastrointestinal: Reports no additional gastrointestinal complaints, Denies abdominal pain, Denies diarrhea, Denies nausea and Denies vomiting Genitourinary: Genitourinary: Reports no additional female genitourinary complaints and Denies urinary incontinence Musculoskeletal: Musculoskeletal: Reports no additional musculoskeletal complaints, Reports back pain, Denies arthralgias, Denies joint swelling, Denies neck pain, Denies numbness and Denies tingling Integumentary/Breasts: Skin/Breast: Reports system reviewed and no additional complaints, except as docu and Denies rash Neurologic: Reports system reviewed and no additional complaints, except as documented, Denies Abnormal speech present, Denies dizziness, Denies h eadache(s), Denies numbness, Denies tingling and Denies weakness PMFSH Past Medical History Attestation statement: The following information was validated with the patient. Source: old records reviewed and nursing notes reviewed Medical History Asthma COPD (chronic obstructive pulmonary disease) Diabetes Heart problem Hypertension Social History Social History Household Members: Significant Other and Family Housing: House Do you presently have visiting nurse or other home services: No Alcohol intake: unknown Patient Tobacco Use Status: Current everyday Tobacco user Tobacco use type: Cigarette e-Cigarette/Vaping Use: Never Used Second Hand Smoke Exposure: Yes Advance Directives: No Advance Directives Information Provided: No service: No Current occupational status: unemployed Physical Exam Vital Signs: Vital Signs: Last Vital Signs Temp 97.9 F 02/07/21 06:17 Pulse 107 H 02/07/21 06:17 Resp 20 02/07/21 06:17 BP 135/76 02/07/21 06:17 Pulse Ox 98 02/07/21 06:17 Body Mass Index 24.7 Const: General: cooperative, healthy appearing, comfortable and no acute distress Orientation/consciousness: patient oriented x3 Limitations: no limitations HENMT: Head: Yes normal to inspection Ears: hearing grossly normal bilaterally General nose exam: Normal external nose present Face and sinus: Yes normal facial exam Mouth: Normal oral and palatal mucosa present Throat: Yes posterior oropharynx normal Eyes: General: appearance normal, both eyes and all related structures Pupils: Equal, round and reactive pupils present Neck: Neck: Yes normal visual inspection Chest: Chest palpation & inspection: normal inspection of the chest Resp: Other: Mild expiratory wheezin throughout, frequent dry bronchospastic cough noted Effort & Inspection: normal respiratory effort Cardio: Rate: regular rate Rhythm: regular rhythm Peripheral pulses: Peripheral pulses 2+ throughout GI: Inspection: Yes normal to inspection Palpation (GI): Soft to palpation and nontender Auscultation: normal bowel sounds : General: Yes no CVA tenderness Back/Spine/Pelvis: Other: Right upper thoracic soft tissue tenderness with no midline tenderness, step-offs or deformities. Palpable muscle spasm. Pain is worsened with flexion and extension of the spine and lateral rotation. Back: no CVA tenderness Thoracic/Lumbar Spine: thoracic and lumbar spine normal to inspection Skin: General skin exam: no rashes or lesions noted Neuro: General: patient oriented x3, no focal motor deficits and normal sensation to monofilament Cranial nerves: Yes Equal, round and reactive pupils present Cognition (Neuro): normal cognition Speech: No Abnormal speech present Gait exam (Neuro): Normal gait present Motor exam (neuro): 5/5 motor strength present throughout Extrem: General: Yes normal to inspection, Yes no pedal edema and Yes no calf tenderness Course Course Course Narrative: 50-year-old female here with complaints of right upper back pain with waking. No reports of any fall or injury or trauma. Patient does report chronic cough and shortness of breath which she contributes to her underlying COPD. Pain is worsened with movement, breathing, palpation. No CVA tenderness. No abdominal pain. Hemodynamically stable. Patient does have some mild expiratory wheezing on exam. Will check CXR, COVID screen, labs. Will provide analgesia and re-assess. 0900-CXR negative. COVID screen negative. Labs are pending. Continued pain. Will give IM toradol and re-assess. 1000-I was informed by nursing that patient was continuing to have pain. I went into the room to evaluate the patient. She was sleeping on her side with her eyes closed, respiratory even and nonlabored. When I woke her she reports pain on the right upper back which is unrelieved with previous analgesia. I discussed that I would like to check a urine sample and a CT scan of the chest and abdomen. The patient declined this. She states it just a muscle spasm. She is seeking to be discharged home. Therefore the patient will sign out against medical advice. I informed her she is welcome to return at any time. MDM - Back Pain/Injury MDM Narrative Medical decision making narrative: Muscle spasm, renal colic versus pyelonephritis, PE, pneumonia, chest wall strain Medical Records Attestation: I reviewed the patient's medical records. Lab Data Attestation: I reviewed the patient's lab results. Result diagrams: 02/07/21 08:54 02/07/21 08:54 Labs: Lab Results 02/07/21 02/07/21 02/07/21 Range/Units 06:25 08:54 08:54 WBC 7.3 (4.8-10.8) X10*3/uL RBC 4.83 (4.20-5.50) X10*6/uL Hgb 12.8 (12.0-16.0) g/dl Hct 40.0 (37-47) % MCV 82.8 (80-98) fL MCH 26.5 L (27.0-33.0) pg MCHC 32.0 (31.0-35.0) g/dl RDW 14.9 (11.0-16.0) % Plt Count 265 D (160-400) X10*3/uL MPV 11.6 (9.4-12.3) fL Immature Gran % (Auto) 0.5 H (0.0-0.4) % Neut % (Auto) 63.9 (45-73) % Lymph % (Auto) 25.4 (20-40) % [place] % (Auto) 6.9 (2-11) % Eos % (Auto) 2.6 (0-4) % Baso % (Auto) 0.7 (0-2) % Lymph # (Auto) 1.9 (1.2-4.9) X10*3/uL [place] # (Auto) 0.5 (0.1-1.2) X10*3/uL Eos # (Auto) 0.2 (0.0-0.4) X10*3/uL Baso # (Auto) 0.1 (0.0-0.2) X10*3/uL Abs Immat Gran (auto) 0.04 H (0.00-0.03) X10*3/uL Absolute Neuts (auto) 4.7 (2.0-8.3) X10*3/uL Absolute Nucleated RBC 0.000 (0.0-0.012) X10*3/uL Nucleated RBC % (auto) 0.0 (0.0-0.2) /100WBC PT 11.0 (9.9-13.0) SEC INR 1.0 (0.9-1.1) D-Dimer 233 NG/ML Sodium (135-145) mmol/L Potassium (3.3-5.1) mmol/L Chloride (96-108) mmol/L Carbon Dioxide (22-29) mmol/L Anion Gap (12-20) BUN (9-16) mg/dL Creatinine (0.5-1.4) mg/dL Estim Creat Clear Calc Estimated GFR Random Glucose (60-115) mg/dL Calcium (8.4-10.2) mg/dL Magnesium (1.6-2.6) mg/dL Total Bilirubin (0.0-1.0) mg/dL Direct Bilirubin (0.0-0.5) mg/dL AST (5-31) U/L ALT (0-31) U/L Alkaline Phosphatase (39-117) U/L Total Protein (6.5-8.0) g/dL Albumin (3.5-5.0) g/dL COVID-19 (KATHLEEN) Negative (Negative) COVID-19 Clin Com See Note 02/07/21 Range/Units 08:54 WBC (4.8-10.8) X10*3/uL RBC (4.20-5.50) X10*6/uL Hgb (12.0-16.0) g/dl Hct (37-47) % MCV (80-98) fL MCH (27.0-33.0) pg MCHC (31.0-35.0) g/dl RDW (11.0-16.0) % Plt Count (160-400) X10*3/uL MPV (9.4-12.3) fL Immature Gran % (Auto) (0.0-0.4) % Neut % (Auto) (45-73) % Lymph % (Auto) (20-40) % [place] % (Auto) (2-11) % Eos % (Auto) (0-4) % Baso % (Auto) (0-2) % Lymph # (Auto) (1.2-4.9) X10*3/uL [place] # (Auto) (0.1-1.2) X10*3/uL Eos # (Auto) (0.0-0.4) X10*3/uL Baso # (Auto) (0.0-0.2) X10*3/uL Abs Immat Gran (auto) (0.00-0.03) X10*3/uL Absolute Neuts (auto) (2.0-8.3) X10*3/uL Absolute Nucleated RBC (0.0-0.012) X10*3/uL Nucleated RBC % (auto) (0.0-0.2) /100WBC PT (9.9-13.0) SEC INR (0.9-1.1) D-Dimer NG/ML Sodium 139 (135-145) mmol/L Potassium 4.7 D (3.3-5.1) mmol/L Chloride 104 (96-108) mmol/L Carbon Dioxide 27 (22-29) mmol/L Anion Gap 13 (12-20) BUN 19 H D (9-16) mg/dL Creatinine 1.01 (0.5-1.4) mg/dL Estim Creat Clear Calc 60.4 Estimated GFR 58 Random Glucose 166 H (60-115) mg/dL Calcium 9.8 D (8.4-10.2) mg/dL Magnesium 2.0 (1.6-2.6) mg/dL Total Bilirubin 0.2 (0.0-1.0) mg/dL Direct Bilirubin < 0.2 (0.0-0.5) mg/dL AST 9 D (5-31) U/L ALT 15 (0-31) U/L Alkaline Phosphatase 89 (39-117) U/L Total Protein 7.3 (6.5-8.0) g/dL Albumin 4.4 D (3.5-5.0) g/dL COVID-19 (KATHLEEN) (Negative) COVID-19 Clin Com Imaging Data Chest x-ray: Attestation: I personally reviewed and interpreted this imaging study as follows: Radiologist's impression: EXAMINATION: XR CHEST CLINICAL INFORMATION: Back pain, lung pain COMPARISON: 12/24/2020 TECHNIQUE: 2 views of the chest were obtained. FINDINGS: The lungs are clear with no focal consolidation. No evidence of pneumothorax, pulmonary edema, or pleural effusions. The cardiomediastinal silhouette is unremarkable. No acute osseous findings. XR/XR chest 2V IMPRESSION: No acute cardiopulmonary findings. Discharge Plan Discharge Clinical Impression: Back pain Patient Disposition: Left Against Medical Advice Instructions: Back Pain (ED) Additional Instructions: I wanted to check a urine sample and a CT scan but you declined this. I would have liked to make sure you do not have a kidney infection, kidney stone, and that all your abdominal organs look normal. Please return for persistent symtoms so we may do these tests. Prescriptions: New albuterol sulfate 90 mcg/actuation aerosol powdr breath activated 2 inh inhalation Q4H PRN (Reason: shortness of breath or wheezing) Qty: 1 RF: 0 cyclobenzaprine 10 mg tablet 10 mg PO TID PRN (Reason: muscle spasm) Qty: 10 RF: 0 lidocaine [Lidoderm] 5 % adhesive patch,medicated 1 patch topical DAILY Qty: 15 RF: 0 ketorolac 10 mg tablet 10 mg PO Q8H PRN (Reason: pain) Qty: 15 RF: 0 No Action atorvastatin 10 mg tablet 1 tab PO DAILY RF: 0 aspirin 81 mg tablet,delayed release (DR/EC) 1 tab PO DAILY RF: 0 gabapentin 300 mg capsule 2 cap PO BEDTIME RF: 0 montelukast 10 mg tablet 1 tab PO QPM RF: 0 albuterol sulfate [ProAir HFA] 90 mcg/actuation HFA aerosol inhaler 2 puff PO Q4H PRN (Reason: wheezing) RF: 0 glipizide-metformin 5-500 mg tablet 2 tab PO BIDWM RF: 0 Advair HFA 115-21 mcg/actuation HFA aerosol inhaler 2 puff inhalation BID RF: 0 Incruse Ellipta 62.5 mcg/actuation blister with device 1 puff PO DAILY RF: 0 nystatin 100,000 unit/mL Suspension 400,000 unit PO QID 7 Days Qty: 112 RF: 0 hydrochlorothiazide 50 mg Tablet 50 mg PO DAILY 30 Days Qty: 30 RF: 0 hydralazine 25 mg Tablet 25 mg PO TID 30 Days Qty: 90 RF: 0 omeprazole 40 mg Capsule,Delayed Release(Dr/Ec) 40 mg PO DAILY 30 Days Qty: 30 RF: 0 amlodipine 10 mg Tablet 10 mg PO DAILY 30 Days Qty: 30 RF: 0 lisinopril 10 mg Tablet 30 mg PO DAILY 30 Days Qty: 90 RF: 0 Referrals: Physician,Unknown [Primary Care Provider] - 2 days Stand Alone Forms: Against Medical Advice Interventions: ED Discharge Assessment Last Done: 02/07/21 10:07 Discharge Date/Time: 02/07/21 10:08
[2021-02-07 08:59] LABS: MANUAL DIFF FLAG NO
[2021-02-07 09:00] LABS: Basophils Absolute Auto 0.1 X10*3/uL (0.0-0.2); Basophils Percent Auto 0.7 % (0-2); Eosinophils Absolute Auto 0.2 X10*3/uL (0.0-0.4); Eosinophils Percent Auto 2.6 % (0-4); Hemoglobin 12.8 g/dl (12.0-16.0); Imm Gran Abs Auto 0.04 X10*3/uL (0.00-0.03); Imm Gran Pct Auto 0.5 % (0.0-0.4); Lymphocytes Absolute Auto 1.9 X10*3/uL (1.2-4.9); Lymphocytes Percent Auto 25.4 % (20-40); Mean Corpuscular Hemoglobin 26.5 pg (27.0-33.0); Mean Corpuscular Volume 82.8 fL (80-98); Mean Platelet Volume 11.6 fL (9.4-12.3); Monocytes Absolute Auto 0.5 X10*3/uL (0.1-1.2); Monocytes Percent Auto 6.9 % (2-11); Neutrophils Absolute Auto 4.7 X10*3/uL (2.0-8.3); Neutrophils Percent Auto 63.9 % (45-73); Platelet Count 265 X10*3/uL (160-400); Red Blood Count 4.83 X10*6/uL (4.20-5.50); Red Cell Distribution Width 14.9 % (11.0-16.0); White Blood Count 7.3 X10*3/uL (4.8-10.8)
[2021-02-07 09:08] LABS: D Dimer 233 NG/ML
[2021-02-07] MEDS: Ketorolac Tromethamine 60 MG/2 ML VIAL IM (09:11)
[2021-02-07 09:24] LABS: Alanine Aminotransferase 15 U/L (0-31); Albumin Level 4.4 g/dL (3.5-5.0); Alkaline Phosphatase 89 U/L (39-117); Anion Gap 13 (12-20); Aspartate Amino Transferase 9 U/L (5-31); Bilirubin Direct < 0.2 mg/dL (0.0-0.5); Bilirubin Total 0.2 mg/dL (0.0-1.0); Blood Urea Nitrogen 19 mg/dL (9-16); Calcium 9.8 mg/dL (8.4-10.2); Carbon Dioxide 27 mmol/L (22-29); Chloride 104 mmol/L (96-108); Creatinine Clr Calc Pharmacy 60.4; Estimated Glomerular Filt Rate 58; Glucose Random 166 mg/dL (60-115); Potassium 4.7 mmol/L (3.3-5.1); Sodium 139 mmol/L (135-145); Total Protein 7.3 g/dL (6.5-8.0)
== END 2021-02-07 10:08 | disposition left against medical advice (07) ==
PROVIDERS: Nurse Practitioner Family; Emergency Provider Emergency Medicine
DX: M54.5 Low back pain (principal); E11.9 Type 2 diabetes mellitus without complications; I10 Essential (primary) hypertension; Z79.899 Other long term (current) drug therapy; F17.210 Nicotine dependence, cigarettes, uncomplicated; Z20.822 Contact with and (suspected) exposure to COVID-19; Z71.6 Tobacco abuse counseling; Z79.82 Long term (current) use of aspirin
CPT/HCPCS: 36415; 71046; 80048; 80076; 83735; 85025; 85379; 85610; 87635; 96372; 99283; 99284; J1885

== ENCOUNTER 2021-07-10 20:56 | Inpatient (IN) | payer MEDICAID, SELFPAY ==
--- NOTE | ~2021-07-10 | XR_ITS ---
EXAMINATION: XR TOES, LEFT CLINICAL INFORMATION: Osteomyelitis of left great toe. COMPARISON: Left foot 12/24/2020 TECHNIQUE: 3 views of the left toes were obtained. FINDINGS: No focal bone destruction. No abnormal periosteal reaction. No focal osteopenia. No radiographic evidence for osteomyelitis. XR/XR toe LT min 2V IMPRESSION: No radiographic evidence of osteomyelitis. No acute osseous abnormality of the great toe.
[2021-07-10 21:01] VITALS: BP 152/81; BP 172/98; PULSE 101; PULSE 127; RESP 18; TEMP 36.9; O2SAT 98; O2SAT 99; BMI 27.7
--- NOTE | 2021-07-10 21:20 | ED_ITS ---
HPI - Skin/Abscess/Foreign Bdy General Chief complaint: Skin/Abscess/Foreign Body Stated complaint: left foot infection Time Seen by Provider: 07/10/21 21:15 Source: patient Mode of arrival: EMS Limitations: no limitations History of Present Illness HPI narrative: 51-year-old female who presents emergency department for evaluation of an infection of her left foot. The patient states that 1 year prior she did injure her left great toe and developed an infection. She states that she was in wound care and eventually the infection improved. She states that she cannot feel her feet secondary to her diabetic neuropathy she states that yesterday. She states that yesterday she found 3 thumb tacks stuck in the bottom of her foot which she removed . She he states that she then developed pain and of the left great toe and foot that is gotten progressively worse. The patient is concerned that she might have an infection and she was concerned that she might lose her foot therefore she called an ambulance and came to the emergency department. She denied fever or chills but she states she is feeling very tired and fatigued and slept all day. She states she has had no appetite had 1 episode of emesis. The patient states she has received the [employer] COVID-19 vaccine x2 and she has received a booster shot. She states she tested negative for COVID-19 4 days prior. Related Data Home Medications Medication Instructions Recorded Confirmed albuterol sulfate 90 mcg/actuation 2 puff PO Q4H PRN 12/24/20 12/25/20 aerosol inhaler (ProAir HFA) aspirin 81 mg tablet,delayed 1 tab PO DAILY 12/24/20 12/25/20 release atorvastatin 10 mg tablet 1 tab PO DAILY 12/24/20 12/25/20 fluticasone propionate 115 2 puff INHALATION BID 12/24/20 12/25/20 mcg-salmeterol 21 mcg/actuation HFA inhaler (Advair HFA) gabapentin 300 mg capsule 2 cap PO BEDTIME 12/24/20 12/25/20 glipizide 5 mg-metformin 500 mg 2 tab PO BIDWM 12/24/20 12/25/20 tablet montelukast 10 mg tablet 1 tab PO QPM 12/24/20 12/25/20 umeclidinium 62.5 mcg/actuation 1 puff PO DAILY 12/24/20 12/25/20 blister powder for inhalation (Incruse Ellipta) Previous Rx's Medication Instructions Recorded amlodipine 10 mg tablet 10 mg PO DAILY 30 Days #30 tab 12/27/20 hydralazine 25 mg tablet 25 mg PO TID 30 Days #90 tab 12/27/20 hydrochlorothiazide 50 mg tablet 50 mg PO DAILY 30 Days #30 tab 12/27/20 lisinopril 10 mg tablet 30 mg PO DAILY 30 Days #90 tab 12/27/20 nystatin 100,000 unit/mL oral 400,000 unit PO QID 7 Days #112 12/27/20 ml suspension omeprazole 40 mg capsule,delayed 40 mg PO DAILY 30 Days #30 cap 12/27/20 release albuterol sulfate 90 mcg/actuation 2 inh INHALATION Q4H PRN #1 ea 02/07/21 breath activated powder inhaler cyclobenzaprine 10 mg tablet 10 mg PO TID PRN #10 tab 02/07/21 ketorolac 10 mg tablet 10 mg PO Q8H PRN #15 tab 02/07/21 lidocaine 5 % topical patch 1 patch TOPICAL DAILY #15 ea 02/07/21 (Lidoderm) Allergies Allergy/AdvReac Type Severity Reaction Status Date / Time Penicillins Allergy Severe RASH Verified 02/07/21 06:17 [PENICILLINS] amoxicillin Allergy Intermediate HIVES Verified 02/07/21 06:17 [AMOXICILLIN] Review of Systems Verdana 4l Review of Systems: Yes all other systems are reviewed and Verdana 4d are negative [facility] Past Medical History [facility] Narrative: Social history: The patient states she smokes 1 pack of cigarettes per day times 43 years. She denies alcohol use. She denies drug use. Medical History Asthma COPD (chronic obstructive pulmonary disease) Diabetes Heart problem Hypertension Social History Social History Household Members: Significant Other and Family Housing: House Do you presently have visiting nurse or other home services: No Alcohol intake: unknown Patient Tobacco Use Status: Current everyday Tobacco user Tobacco use type: Cigarette e-Cigarette/Vaping Use: Never Used Second Hand Smoke Exposure: Yes Advance Directives: No Advance Directives Information Provided: Yes service: No Current occupational status: unemployed Physical Exam Verdana 4l Vital Signs: Verdana 4d Verdana 4d Vital Signs: Verdana 4d Verdana 4Bd Last Vital Signs Verdana 4d 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 Temp 98.4 F 07/10/21 21:01 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 Pulse 116 H 07/10/21 22:30 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 Resp 20 07/10/21 22:30 BP 151/81 H 07/10/21 22:30 Pulse Ox 100 07/10/21 22:30 BMI result Body Mass Index 27.7 Const: General: cooperative and no acute distress Orientation/consciousness: oriented to person and oriented to place Limitations: no limitations HENMT: Head: Yes normal to inspection, Yes normocephalic and Yes atraumatic Ears: external ears normal General nose exam: Normal external nose present Face and sinus: Yes normal facial exam Mouth: Normal oral and palatal mucosa present Throat: Yes posterior oropharynx normal Eyes: General: appearance normal, both eyes and all related structures Pupils: Equal, round and reactive pupils present Neck: Neck: Yes normal visual inspection, Yes no lymphadenopathy, Yes trachea midline and Yes supple Chest: Chest palpation & inspection: normal inspection of the chest and normal palpation of entire chest wall Resp: Effort & Inspection: normal respiratory effort and able to speak in complete sentences Auscultation: clear to auscultation bilaterally Cardio: Rate: regular rate Rhythm: regular rhythm Heart sounds: S1 normal heart sound present, S2 normal heart sound present and no murmurs GI: Inspection: Yes normal to inspection Palpation (GI): Soft to palpation, nontender and no guarding Auscultation: normal bowel sounds : General: Yes no CVA tenderness Back/Spine/Pelvis: Back: no CVA tenderness Skin: General skin exam: no rashes or lesions noted Neuro: General: oriented to person and oriented to place Cranial nerves: Yes CN's II-XII intact bilaterally and Yes Equal, round and reactive pupils present Cognition (Neuro): normal cognition Motor exam (neuro): 5/5 motor strength present throughout Extrem: Other: The patient has erythema over the ventral aspect of the foot extending to above the ankle, this erythema is warm to the touch, the patient's left foot and ankle are swollen compared to the right, the patient has a chronic appearing laceration to the dorsal aspect of the left great toe with thick callus to the skin. These findings are consistent with a left foot cellulitis that extends beyond the ankle. Psych: Appearance: grossly normal Speech and movement: Normal speech and movement present Affect: normal affect Attitude: cooperative Thought process: Normal thought process present Thought content: Normal thought content present Course Course Course Narrative: 51-year-old female who presents emergency department for evaluation of 3 days of erythema, swelling, and pain to her left foot most likely secondary to a chronic appearing wound to the left great toe, however she does report stepping on 3 tacks 3 days prior and this could be the source of her infection. She denied fever chills but she has had fatigue, loss of appetite and 1 episode of emesis. The patient's left foot does appear to be infected with erythema and soft tissue swelling of the left foot and just with erythema and swelling extending above the left ankle. I did order a CBC, CMP, lactate, blood cultures x2, ESR, CRP. X-rays of the left great toe will also be obtained to rule osteomyelitis. Patient will be treated with ceftriaxone 1 g IV and vancomycin 750 mg IV. I also ordered morphine 4 mg IV and Zofran 4 mg IV for the patient's pain and nausea. 2214: Laboratory evaluation: [place] [address], she had mild anemia with an H&H of 11.6 and 35. Sodium and chloride were low at 131 and 95. BUN and creatinine were normal 61.1. Glucose was elevated at 591. Lactic acid was normal 1.6. CRP was elevated 9.83. COVID-19 was negative. X-ray of the left great toe did not reveal any osteomyelitis. Given the elevated glucose the patient was ordered to get a 2 L of normal saline IV and regular insulin 10 units IV. I will discuss admission with the covering hospitalist. 2237: I did discuss the patient's presentation with the covering hospitalist, Dr. Best and the patient will be admitted for further treatment. MDM - Skin/Abscess/Foreign Bdy Lab Data Result diagrams: 07/10/21 21:37 07/10/21 21:37 Labs: Lab Results 07/10/21 07/10/21 07/10/21 Range/Units 21:37 21:37 21:37 WBC 10.8 (4.8-10.8) X10*3/uL RBC 4.41 (4.20-5.50) X10*6/uL Hgb 11.6 L (12.0-16.0) g/dl Hct 35.8 L (37.0-47.0) % MCV 81.2 (80.0-98.0) fL MCH 26.3 L (27.0-33.0) pg MCHC 32.4 (31.0-35.0) g/dl RDW 14.7 (11.0-16.0) % Plt Count 213 (160-400) X10*3/uL MPV 12.5 H (9.4-12.3) fL Immature Gran % (Auto) 0.5 H (0.0-0.4) % Neut % (Auto) 82.5 H (45-73) % Lymph % (Auto) 10.8 L (20-40) % [place] % (Auto) 5.1 (2-11) % Eos % (Auto) 0.7 (0-4) % Baso % (Auto) 0.4 (0-2) % Lymph # (Auto) 1.2 (1.2-4.9) X10*3/uL [place] # (Auto) 0.6 (0.1-1.2) X10*3/uL Eos # (Auto) 0.1 (0.0-0.4) X10*3/uL Baso # (Auto) 0.0 (0.0-0.2) X10*3/uL Abs Immat Gran (auto) 0.05 H (0.00-0.03) X10*3/uL Absolute Neuts (auto) 8.9 H (2.0-8.3) x10*3/uL Absolute Nucleated RBC 0.000 (0.0-0.012) X10*3/uL Nucleated RBC % (auto) 0.0 (0.0-0.2) /100WBC ESR 48 H (0-20) MM/HR PT 12.1 (9.9-13.0) SEC INR 1.1 (0.9-1.1) APTT 30.3 (24.1-38.0) SEC Sodium (135-145) mmol/L Potassium (3.3-5.1) mmol/L Chloride (96-108) mmol/L Carbon Dioxide (22-29) mmol/L Anion Gap (12-20) BUN (9-16) mg/dL Creatinine (0.5-1.4) mg/dL Estim Creat Clear Calc Estimated GFR Random Glucose (60-115) mg/dL Lactic Acid (0.5-2.0) mmol/L Calcium (8.4-10.2) mg/dL Total Bilirubin (0.0-1.0) mg/dL AST (5-31) U/L ALT (0-31) U/L Alkaline Phosphatase (39-117) U/L C-Reactive Protein (< or = 0.50) mg/dL Total Protein (6.5-8.0) g/dL Albumin (3.5-5.0) g/dL Lipase (8-78) U/L COVID-19 (KATHLEEN) (Negative) COVID-19 Clin Com 07/10/21 07/10/21 07/10/21 Range/Units 21:37 21:37 21:37 WBC (4.8-10.8) X10*3/uL RBC (4.20-5.50) X10*6/uL Hgb (12.0-16.0) g/dl Hct (37.0-47.0) % MCV (80.0-98.0) fL MCH (27.0-33.0) pg MCHC (31.0-35.0) g/dl RDW (11.0-16.0) % Plt Count (160-400) X10*3/uL MPV (9.4-12.3) fL Immature Gran % (Auto) (0.0-0.4) % Neut % (Auto) (45-73) % Lymph % (Auto) (20-40) % [place] % (Auto) (2-11) % Eos % (Auto) (0-4) % Baso % (Auto) (0-2) % Lymph # (Auto) (1.2-4.9) X10*3/uL [place] # (Auto) (0.1-1.2) X10*3/uL Eos # (Auto) (0.0-0.4) X10*3/uL Baso # (Auto) (0.0-0.2) X10*3/uL Abs Immat Gran (auto) (0.00-0.03) X10*3/uL Absolute Neuts (auto) (2.0-8.3) x10*3/uL Absolute Nucleated RBC (0.0-0.012) X10*3/uL Nucleated RBC % (auto) (0.0-0.2) /100WBC ESR (0-20) MM/HR PT (9.9-13.0) SEC INR (0.9-1.1) APTT (24.1-38.0) SEC Sodium 131 L (135-145) mmol/L Potassium 4.1 (3.3-5.1) mmol/L Chloride 95 L (96-108) mmol/L Carbon Dioxide 26 (22-29) mmol/L Anion Gap 14 (12-20) BUN 6 L (9-16) mg/dL Creatinine 1.11 (0.5-1.4) mg/dL Estim Creat Clear Calc 55.0 Estimated GFR 52 Random Glucose 591 H* D (60-115) mg/dL Lactic Acid 1.6 (0.5-2.0) mmol/L Calcium 8.8 D (8.4-10.2) mg/dL Total Bilirubin 0.6 (0.0-1.0) mg/dL AST 6 (5-31) U/L ALT 11 (0-31) U/L Alkaline Phosphatase 114 D (39-117) U/L C-Reactive Protein 9.83 H (< or = 0.50) mg/dL Total Protein 6.0 L (6.5-8.0) g/dL Albumin 3.4 L D (3.5-5.0) g/dL Lipase 16 (8-78) U/L COVID-19 (KATHLEEN) Negative (Negative) COVID-19 Clin Com See Note Discharge Plan Discharge Prescriptions: No Action atorvastatin 10 mg tablet 1 tab PO DAILY 0RF aspirin 81 mg tablet,delayed release (DR/EC) 1 tab PO DAILY 0RF gabapentin 300 mg capsule 2 cap PO BEDTIME 0RF montelukast 10 mg tablet 1 tab PO QPM 0RF albuterol sulfate [ProAir HFA] 90 mcg/actuation HFA aerosol inhaler 2 puff PO Q4H PRN (Reason: wheezing) 0RF glipizide-metformin 5-500 mg tablet 2 tab PO BIDWM 0RF Advair HFA 115-21 mcg/actuation HFA aerosol inhaler 2 puff inhalation BID 0RF Incruse Ellipta 62.5 mcg/actuation blister with device 1 puff PO DAILY 0RF nystatin 100,000 unit/mL Suspension 400,000 unit PO QID 7 Days Qty: 112 0RF Protocol: Apply to: Apply to: Swish and swallow hydrochlorothiazide 50 mg Tablet 50 mg PO DAILY 30 Days Qty: 30 0RF Protocol: Hold for SBP< HOLD for SBP < : 90 hydralazine 25 mg Tablet 25 mg PO TID 30 Days Qty: 90 0RF Protocol: Hold for SBP< HOLD for SBP < : 90 omeprazole 40 mg Capsule,Delayed Release(Dr/Ec) 40 mg PO DAILY 30 Days Qty: 30 0RF amlodipine 10 mg Tablet 10 mg PO DAILY 30 Days Qty: 30 0RF Protocol: Hold for SBP< HOLD for SBP < : 90 lisinopril 10 mg Tablet 30 mg PO DAILY 30 Days Qty: 90 0RF Protocol: Hold for SBP< HOLD for SBP < : 90 albuterol sulfate 90 mcg/actuation aerosol powdr breath activated 2 inh inhalation Q4H PRN (Reason: shortness of breath or wheezing) Qty: 1 0RF cyclobenzaprine 10 mg tablet 10 mg PO TID PRN (Reason: muscle spasm) Qty: 10 0RF lidocaine [Lidoderm] 5 % adhesive patch,medicated 1 patch topical DAILY Qty: 15 0RF Rx Instructions: leave on most painful area for up to 12 hrs ketorolac 10 mg tablet 10 mg PO Q8H PRN (Reason: pain) Qty: 15 0RF
[2021-07-10] MEDS: ondansetron HCL 4 MG/2 ML VIAL IVPUSH (21:42)
[2021-07-10] MEDS: Morphine Sulfate 4 MG/ML CARTRIDGE IVPUSH ×2 (21:42→22:27)
[2021-07-10] MEDS: cefTRIAXone sodium 1 GM in 0.9 % Sodium Chloride 50 ML IV (21:42)
[2021-07-10] MEDS: 0.9 % Sodium Chloride 1,000 ML 999 ML IV ×2 (21:42→23:01)
[2021-07-10 21:44] LABS: MANUAL DIFF FLAG NO
[2021-07-10 21:46] LABS: Basophils Percent Auto 0.4 % (0-2); Eosinophils Absolute Auto 0.1 X10*3/uL (0.0-0.4); Eosinophils Percent Auto 0.7 % (0-4); Hematocrit 35.8 % (37.0-47.0); Hemoglobin 11.6 g/dl (12.0-16.0); Imm Gran Abs Auto 0.05 X10*3/uL (0.00-0.03); Imm Gran Pct Auto 0.5 % (0.0-0.4); Lymphocytes Absolute Auto 1.2 X10*3/uL (1.2-4.9); Lymphocytes Percent Auto 10.8 % (20-40); Mean Corpuscular HGB Conc 32.4 g/dl (31.0-35.0); Mean Corpuscular Hemoglobin 26.3 pg (27.0-33.0); Mean Corpuscular Volume 81.2 fL (80.0-98.0); Mean Platelet Volume 12.5 fL (9.4-12.3); Monocytes Absolute Auto 0.6 X10*3/uL (0.1-1.2); Monocytes Percent Auto 5.1 % (2-11); Neutrophils Absolute Auto 8.9 x10*3/uL (2.0-8.3); Neutrophils Percent Auto 82.5 % (45-73); Platelet Count 213 X10*3/uL (160-400); Red Blood Count 4.41 X10*6/uL (4.20-5.50); Red Cell Distribution Width 14.7 % (11.0-16.0); White Blood Count 10.8 X10*3/uL (4.8-10.8)
[2021-07-10 21:47] VITALS: BP 161/87; PULSE 116; RESP 20; O2SAT 97
[2021-07-10 21:52] LABS: INTERNATIONAL NORM RATIO 1.1 (0.9-1.1); Prothrombin Time 12.1 SEC (9.9-13.0)
[2021-07-10 21:55] LABS: Partial Thromboplastin Time 30.3 SEC (24.1-38.0)
[2021-07-10 21:57] LABS: COVID-19 Test Negative (Negative)
[2021-07-10 21:59] LABS: Lactic Acid 1.6 mmol/L (0.5-2.0)
[2021-07-10 22:11] LABS: Alanine Aminotransferase 11 U/L (0-31); Albumin Level 3.4 g/dL (3.5-5.0); Alkaline Phosphatase 114 U/L (39-117); Anion Gap 14 (12-20); Aspartate Amino Transferase 6 U/L (5-31); Bilirubin Total 0.6 mg/dL (0.0-1.0); Blood Urea Nitrogen 6 mg/dL (9-16); C Reactive Protein 9.83 mg/dL (< or = 0.50); Calcium 8.8 mg/dL (8.4-10.2); Carbon Dioxide 26 mmol/L (22-29); Chloride 95 mmol/L (96-108); Estimated Glomerular Filt Rate 52; Glucose Random 591 mg/dL (60-115); Lipase 16 U/L (8-78); Potassium 4.1 mmol/L (3.3-5.1); Sodium 131 mmol/L (135-145)
[2021-07-10] MEDS: vancomycin HCL 750 MG in 0.9 % Sodium Chloride 250 ML 265 MG IV (22:20)
[2021-07-10 22:22] LABS: Erythrocyte Sedimentation Rate 48 MM/HR (0-20)
[2021-07-10] MEDS: Insulin Regular, Human 100 UNIT/ML 3 ML VIAL 10 UNIT IVPUSH (22:25)
[2021-07-10 22:30] VITALS: BP 151/81; PULSE 116; RESP 20; O2SAT 100
--- NOTE | 2021-07-10 22:53 | P.HPHOSP_ITS ---
History of Present Illness Date of Service: 07/10/21 Chief Complaint: non-healing painful wound 51-year-old female with past medical history of diabetes, asthma, COPD/asthma, hypertension and heart problems? Presents to the hospital with complaints of nonhealing left big toe wound. Patient reports that she has had this wound for 1 year now, where she stepped on a nail had a wound, was following with wound clinic and her to was healing until about 3 days ago she noticed that she had thump tags in it and she did not even notice because she was not experiencing any pain due to her history of neuropathy. She reports no drainage but the wound has opened up again and she is concerned. She denies any fever or chills, no chest pain, she reports chronic SOB, with no new changes, no increased cough or sputum production. no abdominal pain nausea vomiting, no diarrhea constipation, urinary symptoms and no lower extremity edema. On arrival to the ED patient hemodynamically stable with tachycardia of 100-120s , hypertension Labs showed WBC count of 10.8, hemoglobin of 11.6 with hematocrit 35.8, ESR of 48, glucose of 591, CRP of 9.8, UA negative, COVID-19 negative Left toe x-ray showed no radiographic evidence of osteomyelitis Patient will be admitted for further management Review of Systems Verdana 4l Review of Systems: Yes all other systems are reviewed and Verdana 4d are negative [facility] Medical History (Updated 07/11/21 @ 06:32 by Tanner Best MD) Asthma COPD (chronic obstructive pulmonary disease) Diabetes Heart problem Hypertension Pertinent family history: denies family hx of CAD Surgical History (Updated 07/11/21 @ 06:30 by Tanner Best MD) No pertinent past surgical history Social History Household Members: Significant Other and Family Housing: House Do you presently have visiting nurse or other home services: No Alcohol intake: unknown Patient Tobacco Use Status: Current everyday Tobacco user Tobacco use type: Cigarette e-Cigarette/Vaping Use: Never Used Second Hand Smoke Exposure: Yes Advance Directives: No Advance Directives Information Provided: Yes service: No Current occupational status: unemployed Meds Allergies Allergy/AdvReac Type Severity Reaction Status Date / Time Penicillins Allergy Severe RASH Verified 02/07/21 06:17 [PENICILLINS] amoxicillin Allergy Intermediate HIVES Verified 02/07/21 06:17 [AMOXICILLIN] Active Medications: Current Medications Sodium Chloride (Ns) 1,000 mls @ 999 mls/hr IV .Q1H1M STA Stop: 07/10/21 23:14 Pharmacy Consult (Consult Rx Perform Med Rec) 1 each MISCELLANE ONCE PRN PRN Reason: Consult order Home Medications Medication Instructions Recorded Confirmed Last Taken Type albuterol 2 puff PO Q4H 12/24/20 07/10/21 07/10/21 21:00 History sulfate 90 PRN mcg/actuation aerosol inhaler (ProAir HFA) aspirin 81 mg 1 tab PO DAILY 12/24/20 07/10/21 07/10/21 11:00 History tablet,delayed release atorvastatin 10 1 tab PO DAILY 12/24/20 07/10/21 07/09/21 21:00 History mg tablet fluticasone 2 puff 12/24/20 07/10/21 07/10/21 11:00 History propionate 115 INHALATION BID mcg-salmeterol 21 mcg/actuation HFA inhaler (Advair HFA) gabapentin 300 2 cap PO 12/24/20 07/10/21 07/10/21 21:00 History mg capsule BEDTIME glipizide 5 2 tab PO BIDWM 12/24/20 07/10/21 07/10/21 11:00 History mg-metformin 500 mg tablet montelukast 10 1 tab PO QPM 12/24/20 07/10/21 07/09/21 11:00 History mg tablet umeclidinium 1 puff PO DAILY 12/24/20 07/10/21 07/10/21 11:00 History 62.5 mcg/actuation blister powder for inhalation (Incruse Ellipta) Physical Exam Verdana 4l Vital Signs and Narrative: Verdana 4d Verdana 4d Vital Signs: Verdana 4d Verdana 4Bd Last Vital Signs Verdana 4d Cook Relief New 4d Cook Relief New 4d Temp 98.4 F 07/10/21 21:01 Cook Relief New 4d Pulse 116 H 07/10/21 22:30 Cook Relief New 4d Resp 20 07/10/21 22:30 BP 151/81 H 07/10/21 22:30 Pulse Ox 100 07/10/21 22:30 BMI result Body Mass Index 27.7 Const: General: cooperative and no acute distress Orientation/consciousness: patient oriented x3 Eyes: General: appearance normal, both eyes and all related structures Pupils: Equal, round and reactive pupils present Resp: Effort & Inspection: normal respiratory effort Cardio: Rate: regular rate Rhythm: regular rhythm GI: Palpation (GI): Soft to palpation Auscultation: normal bowel sounds Skin: General skin exam: no rashes or lesions noted Neuro: General: patient oriented x3 Cranial nerves: Yes Equal, round and reactive pupils present Cognition (Neuro): normal cognition Extrem: Other: left great toe open wound, erythema to the ankle , warm, non-tender Results Labs CBC and Chem 7: 07/10/21 21:37 07/10/21 21:37 Labs: Laboratory Results - last 24 hr 07/10/21 07/10/21 07/10/21 21:37 21:37 21:37 MCV 81.2 MCH 26.3 L MCHC 32.4 RDW 14.7 Plt Count 213 MPV 12.5 H Immature Gran % (Auto) 0.5 H Neut % (Auto) 82.5 H Lymph % (Auto) 10.8 L [place] % (Auto) 5.1 Eos % (Auto) 0.7 Baso % (Auto) 0.4 Lymph # (Auto) 1.2 [place] # (Auto) 0.6 Eos # (Auto) 0.1 Baso # (Auto) 0.0 Abs Immat Gran (auto) 0.05 H Absolute Neuts (auto) 8.9 H Absolute Nucleated RBC 0.000 Nucleated RBC % (auto) 0.0 ESR 48 H PT 12.1 INR 1.1 APTT 30.3 Anion Gap Estim Creat Clear Calc Estimated GFR Random Glucose Lactic Acid Calcium Total Bilirubin AST ALT Alkaline Phosphatase C-Reactive Protein Total Protein Albumin Lipase COVID-19 (KATHLEEN) COVID-19 Clin Com 07/10/21 07/10/21 07/10/21 21:37 21:37 21:37 MCV MCH MCHC RDW Plt Count MPV Immature Gran % (Auto) Neut % (Auto) Lymph % (Auto) [place] % (Auto) Eos % (Auto) Baso % (Auto) Lymph # (Auto) [place] # (Auto) Eos # (Auto) Baso # (Auto) Abs Immat Gran (auto) Absolute Neuts (auto) Absolute Nucleated RBC Nucleated RBC % (auto) ESR PT INR APTT Anion Gap 14 Estim Creat Clear Calc 55.0 Estimated GFR 52 Random Glucose 591 H* D Lactic Acid 1.6 Calcium 8.8 D Total Bilirubin 0.6 AST 6 ALT 11 Alkaline Phosphatase 114 D C-Reactive Protein 9.83 H Total Protein 6.0 L Albumin 3.4 L D Lipase 16 COVID-19 (KATHLEEN) Negative COVID-19 Clin Com See Note Imaging Radiologist's Impressions: Impressions Toe X-Ray 07/10/21 21:56 IMPRESSION: No radiographic evidence of osteomyelitis. No acute osseous abnormality of the great toe. Assessment and Plan (1) Diabetic toe ulcer: Qualifiers: Diabetes mellitus type: type 2 Laterality: left Status: Acute (2) Cellulitis: Qualifiers: Laterality: left Site of cellulitis: extremity Site of cellulitis of extremity: lower extremity Qualified Code(s): L03.116 - Cellulitis of left lower limb Status: Acute (3) Hyperglycemia: Status: Acute Plan 51 yo F with hx of COPD, HTN , DM presented to hospital with complaint of open toe wound # Diabetic foot wound - pt reports that wound has been there chronically but worsened in past 3 days - has elevated ESR and CRP - will obtain MRI to r/o osteomyelitis - prophylactically tx with IV abx - follow cultures # Cellulitis - of left foot - erythema, warmth - abx - follow cultures # Hyperglycemia - 2/2 diabetes - not in DKA - received IV/subq insulin in ed with improvement - will place on LDSSI - diabetic diet # HTN - elevated - will resume home medications DVT ppx: lovenox Quality Stroke Does the patient have a stroke diagnosis?: No VTE Prior VTE?: No VTE Risk Level:: Medical - moderate - high VTE Device Contraindication: Treatment Not Indicated VTE Drug Contraindication: N/A - Med Ordered
[2021-07-10 23:35] LABS: Glucose, Whole Blood 274 mg/dL (60-115)
[2021-07-11] LABS: Appearance Urine CLEAR; Color Urine YELLOW; Glucose Urine UA >=1000 MG/DL (NEG); Leukocyte Esterase Urine NEG (NEG); Nitrite Urine NEG (NEG); PH 5.5 (5.0-8.0); UACC Culture Trigger NO; Urine Blood NEG (NEG); Urine Ketones NEG (NEG); Urine Protein 1+ MG/DL (NEG-TRACE)
[2021-07-11] MEDS: Enoxaparin Sodium 40 MG/0.4 ML SYRINGE SUBCUT (00:17)
[2021-07-11] MEDS: oxyCODONE HCl Immed Release 5 MG TABLET PO ×3 (00:20→10:46)
[2021-07-11 00:28] LABS: Mucus Urine TRACE /LPF; RBC Urine 0 /HPF (0); Squamous Epithelial Cell Urine TRACE /LPF; WBC Urine 0-2 /HPF (0-4)
[2021-07-11 03:53] VITALS: BP 151/70; PULSE 104; RESP 21; O2SAT 88
--- NOTE | 2021-07-11 03:54 | PC.NURSE ---
Pt startled awake when this RN entered room. Set of vitals-SPO2 87-88% room air. Asked pt if she was feeling short of breath, pt replied i just used my inhaler.
--- NOTE | 2021-07-11 04:41 | PC.NURSE ---
Pt placed on 1 lpm O2 via NC, per request of hospitalist. SPO2 improved to 92%.
[2021-07-11 04:42] VITALS: O2SAT 88
[2021-07-11 06:20] LABS: MANUAL DIFF FLAG NO
[2021-07-11 06:28] LABS: Basophils Percent Auto 0.5 % (0-2); Eosinophils Absolute Auto 0.1 X10*3/uL (0.0-0.4); Hematocrit 32.6 % (37.0-47.0); Hemoglobin 10.4 g/dl (12.0-16.0); Imm Gran Abs Auto 0.04 X10*3/uL (0.00-0.03); Imm Gran Pct Auto 0.5 % (0.0-0.4); Lymphocytes Absolute Auto 1.7 X10*3/uL (1.2-4.9); Lymphocytes Percent Auto 20.6 % (20-40); Mean Corpuscular HGB Conc 31.9 g/dl (31.0-35.0); Mean Corpuscular Hemoglobin 26.4 pg (27.0-33.0); Mean Corpuscular Volume 82.7 fL (80.0-98.0); Mean Platelet Volume 12.2 fL (9.4-12.3); Monocytes Absolute Auto 0.5 X10*3/uL (0.1-1.2); Neutrophils Absolute Auto 5.8 x10*3/uL (2.0-8.3); Neutrophils Percent Auto 71.4 % (45-73); Platelet Count 188 X10*3/uL (160-400); Red Blood Count 3.94 X10*6/uL (4.20-5.50); Red Cell Distribution Width 14.7 % (11.0-16.0); White Blood Count 8.1 X10*3/uL (4.8-10.8)
--- NOTE | 2021-07-11 07:02 | PC.NURSE ---
REPORT GIVEN TO DOMO MEZA.
[2021-07-11] MEDS: cefEPime HCl 2 GM in 0.9 % Sodium Chloride 50 ML IV (07:07)
[2021-07-11 07:11] LABS: Anion Gap 10 (12-20); Blood Urea Nitrogen 8 mg/dL (9-16); Carbon Dioxide 25 mmol/L (22-29); Chloride 104 mmol/L (96-108); Creatinine Clr Calc Pharmacy 76.4; Estimated Glomerular Filt Rate > 60; Glucose Random 315 mg/dL (60-115); Potassium 3.8 mmol/L (3.3-5.1); Sodium 135 mmol/L (135-145)
[2021-07-11 07:27] LABS: Glucose, Whole Blood 277 mg/dL (60-115)
[2021-07-11] MEDS: Insulin Lispro 100 UNIT/ML 3 ML VIAL SUBCUT (08:01)
[2021-07-11] MEDS: 0.9 % Sodium Chloride Flush 3 ML SYRINGE IVFLUSH (08:01)
--- NOTE | 2021-07-11 08:35 | PHA.MEDREC ---
Med rec complete, patient has a few meds that she has run out of refills and hasnt filled since December or January. Possibly has had issues with getting refills from her pharmacy, but believes she is still supposed to be on all of her blood pressure medications. Pharmacy Consult ? Medication Reconciliation Pharmacy has completed the medication reconciliation.
--- NOTE | 2021-07-11 08:41 | HE.PHANOTE ---
RE Vanco Dosing Patient was only given 750mg as a load (10.9 mg/kg). In the setting of improved renal function (SCr 0.80), I recommend increasing the dose to 1gram q12h. There is a possibility we are treating osteo (elevated crp and esr). The next trough is due 07/12/21 @ 0800. Please monitor SCR since the predicted AUC is 540; trough 16.8 Thanks Arnold
[2021-07-11 09:18] VITALS: BP 148/59; PULSE 100; RESP 16; O2SAT 95
[2021-07-11] MEDS: Aspirin Enteric Coated 81 MG TABLET.DR PO (10:19)
[2021-07-11] MEDS: hydroCHLOROthiazide 12.5 MG TABLET PO (10:19)
[2021-07-11] MEDS: Atorvastatin Calcium 10 MG TABLET PO (10:19)
[2021-07-11] MEDS: amLODIPine Besylate 10 MG TABLET PO (10:19)
[2021-07-11] MEDS: hydrALAZINE HCl 25 MG TABLET PO (10:19)
[2021-07-11] MEDS: lisinopriL 20 MG TABLET PO (10:19)
[2021-07-11] MEDS: Nystatin Oral Susp 500,000 UNIT/5 ML ORAL.SUSP 400000 UNIT PO (10:20)
[2021-07-11] MEDS: Albuterol Sulfate 90 MCG 8 GM INHALER 2 PUFF INHALE (10:20)
--- NOTE | 2021-07-11 10:36 | PM.DS ---
DS: Providers Provider Date of Service: 07/11/21 <MITZI Castellon - Last Filed: 07/22/21 18:19> Date of admission: 07/10/21 22:49 <MITZI Castellon - Last Filed: 07/22/21 18:19> Date of discharge: 07/11/21 <MITZI Castellon - Last Filed: 07/22/21 18:19> Primary care physician: Unknown Physician <MITZI Castellon - Last Filed: 07/22/21 18:19> Consults: 07/10/21 22:46 Consult to General Surgery Routine Consulting Provider: Nayana Sosa Reason for consultation: diabetic foot wound Has provider been notified: No <MITZI Castellon - Last Filed: 07/22/21 18:19> Attending physician on discharge: Delta Umaña <MITZI Castellon - Last Filed: 07/22/21 18:19> Discharging clinician: Stephanie Flores <MITZI Castellon - Last Filed: 07/22/21 18:19> DS: Diagnosis Discharge Diagnosis (1) Cellulitis: Status: Acute <MITZI Castellon - Last Filed: 07/22/21 18:19> (2) Diabetic toe ulcer: Status: Acute <MITZI Castellon - Last Filed: 07/22/21 18:19> (3) Hyperglycemia: Status: Acute <MITZI Castellon - Last Filed: 07/22/21 18:19> DS: Summary Hospital Course Hospital Course: From H&P on day of admission 51-year-old female with past medical history of diabetes, asthma, COPD/asthma, hypertension and heart problems?? Presents to the hospital with complaints of nonhealing left big toe wound.? Patient reports that she has had this wound for 1 year now, where she stepped on a nail had a wound, was following with wound clinic and her to was healing until about 3 days ago she noticed that she had thump tags in it and she did not even notice because she was not experiencing any pain due to her history of neuropathy.? She reports no drainage but the wound has opened up again and she is concerned.? She denies any fever or chills, no chest pain, she reports chronic SOB, with no new changes, no increased cough or sputum production. no abdominal pain nausea vomiting, no diarrhea constipation, urinary symptoms and no lower extremity edema. On arrival to the ED patient hemodynamically stable with tachycardia of 100-120s, hypertension Labs showed WBC count of 10.8, hemoglobin of 11.6 with hematocrit 35.8, ESR of 48, glucose of 591, CRP of 9.8, UA negative, COVID-19 negative Left toe x-ray showed no radiographic evidence of osteomyelitis Patient will be admitted for further management Left foot/leg cellulitis related to diabetes Patient was admitted and started on broad spectrum antibiotics. She had no leukocytosis and no fever. She requested to be discharged home so that she could care for her son who is disabled. She understands the risk of worsening infection and sepsis, but declined to stay in the hospital. she will be discharged home with po antibiotics and is encouraged to return if her leg worsens. hypoxia. pt has history of copd. she had o2 documented of 88% on room air and she was initially placed on supplemental oxygen. She denies sob. she had no wheezing on exam. her oxygen was removed and she did not desaturate, she was ambulated and her oxygen remained above 91% on room air. she should follow up with her PCP for close monitoring and return if she develops any shortness of breath. This was discussed with her. <MITZI Castellon - Last Filed: 07/22/21 18:19> Time Spent with Patient Time attestation: Total time spent providing and/or coordinating discharge services: <MITZI Castellon - Last Filed: 07/22/21 18:19> Discharge coordination time: Greater than 30 minutes <MITZI Castellon - Last Filed: 07/22/21 18:19> Quality: Stroke Does the patient have a stroke diagnosis?: No <MITZI Castellon - Last Filed: 07/22/21 18:19> Physical Exam Vital Signs: Vital Signs: Last Vital Signs Temp 98.4 F 07/10/21 21:01 Pulse 100 07/11/21 09:18 Resp 16 07/11/21 09:18 BP 148/59 H 07/11/21 09:18 Pulse Ox 95 07/11/21 09:18 BMI result Body Mass Index 27.7 <MITZI Castellon - Last Filed: 07/22/21 18:19> Const: General: cooperative, healthy appearing, comfortable, no acute distress, alert and awake <MITZI Castellon - Last Filed: 07/22/21 18:19> Resp: Effort & Inspection: able to speak in complete sentences <MITZI Castellon - Last Filed: 07/22/21 18:19> Auscultation: clear to auscultation bilaterally <MITZI Castellon - Last Filed: 07/22/21 18:19> Cardio: Heart sounds: S1 normal heart sound present and S2 normal heart sound present <MITZI Castellon - Last Filed: 07/22/21 18:19> Skin: Other: mild erythema to dorsum of left foot and slightly up anterior [place]; no fluctuance or induration; left great toe with dry chronic appearing ulcer, no drainage, no surrounding erythema <MITZI Castellon - Last Filed: 07/22/21 18:19> Extrem: Other: moving all four extremities <MITZI Castellon - Last Filed: 07/22/21 18:19> DS: Data Data Completed and Pending Labs on day of discharge: Laboratory Results - last 24 hr 07/10/21 07/10/21 07/10/21 21:37 21:37 21:37 WBC 10.8 RBC 4.41 Hgb 11.6 L Hct 35.8 L MCV 81.2 MCH 26.3 L MCHC 32.4 RDW 14.7 Plt Count 213 MPV 12.5 H Immature Gran % (Auto) 0.5 H Neut % (Auto) 82.5 H Lymph % (Auto) 10.8 L Gem % (Auto) 5.1 Eos % (Auto) 0.7 Baso % (Auto) 0.4 Lymph # (Auto) 1.2 Gem # (Auto) 0.6 Eos # (Auto) 0.1 Baso # (Auto) 0.0 Abs Immat Gran (auto) 0.05 H Absolute Neuts (auto) 8.9 H Absolute Nucleated RBC 0.000 Nucleated RBC % (auto) 0.0 ESR 48 H PT 12.1 INR 1.1 APTT 30.3 Sodium Potassium Chloride Carbon Dioxide Anion Gap BUN Creatinine Estim Creat Clear Calc Estimated GFR POC Glucose Random Glucose Lactic Acid Calcium Total Bilirubin AST ALT Alkaline Phosphatase C-Reactive Protein Total Protein Albumin Lipase Urine Color Urine Appearance Urine pH Ur Specific [place] Urine Protein Urine Glucose (UA) Urine Ketones Urine Blood Urine Nitrite Ur Leukocyte Esterase Urine RBC Urine WBC Ur Squamous Epith Cells Urine Bacteria Urine Mucus Urine Yeast COVID-19 (KATHLEEN) COVID-19 Clin Com 07/10/21 07/10/21 07/10/21 21:37 21:37 21:37 WBC RBC Hgb Hct MCV MCH MCHC RDW Plt Count MPV Immature Gran % (Auto) Neut % (Auto) Lymph % (Auto) Gem % (Auto) Eos % (Auto) Baso % (Auto) Lymph # (Auto) Gem # (Auto) Eos # (Auto) Baso # (Auto) Abs Immat Gran (auto) Absolute Neuts (auto) Absolute Nucleated RBC Nucleated RBC % (auto) ESR PT INR APTT Sodium 131 L Potassium 4.1 Chloride 95 L Carbon Dioxide 26 Anion Gap 14 BUN 6 L Creatinine 1.11 Estim Creat Clear Calc 55.0 Estimated GFR 52 POC Glucose Random Glucose 591 H* D Lactic Acid 1.6 Calcium 8.8 D Total Bilirubin 0.6 AST 6 ALT 11 Alkaline Phosphatase 114 D C-Reactive Protein 9.83 H Total Protein 6.0 L Albumin 3.4 L D Lipase 16 Urine Color Urine Appearance Urine pH Ur Specific [place] Urine Protein Urine Glucose (UA) Urine Ketones Urine Blood Urine Nitrite Ur Leukocyte Esterase Urine RBC Urine WBC Ur Squamous Epith Cells Urine Bacteria Urine Mucus Urine Yeast COVID-19 (KATHLEEN) Negative COVID-19 Clin Com See Note 07/10/21 07/10/21 07/11/21 23:07 23:30 06:00 WBC 8.1 RBC 3.94 L Hgb 10.4 L Hct 32.6 L MCV 82.7 MCH 26.4 L MCHC 31.9 RDW 14.7 Plt Count 188 MPV 12.2 Immature Gran % (Auto) 0.5 H Neut % (Auto) 71.4 Lymph % (Auto) 20.6 Gem % (Auto) 6.0 Eos % (Auto) 1.0 Baso % (Auto) 0.5 Lymph # (Auto) 1.7 Gem # (Auto) 0.5 Eos # (Auto) 0.1 Baso # (Auto) 0.0 Abs Immat Gran (auto) 0.04 H Absolute Neuts (auto) 5.8 Absolute Nucleated RBC 0.000 Nucleated RBC % (auto) 0.0 ESR PT INR APTT Sodium Potassium Chloride Carbon Dioxide Anion Gap BUN Creatinine Estim Creat Clear Calc Estimated GFR POC Glucose 274 H Random Glucose Lactic Acid Calcium Total Bilirubin AST ALT Alkaline Phosphatase C-Reactive Protein Total Protein Albumin Lipase Urine Color YELLOW Urine Appearance CLEAR Urine pH 5.5 Ur Specific [place] 1.010 Urine Protein 1+ H Urine Glucose (UA) >=1000 H Urine Ketones NEG Urine Blood NEG Urine Nitrite NEG Ur Leukocyte Esterase NEG Urine RBC 0 Urine WBC 0-2 Ur Squamous Epith Cells TRACE Urine Bacteria NONE Urine Mucus TRACE Urine Yeast 2+ COVID-19 (KATHLEEN) COVID-19 [facility] [place] [facility] 07/11/21 07/11/21 06:00 07:12 WBC RBC Hgb Hct MCV MCH MCHC RDW Plt Count MPV Immature Gran % (Auto) Neut % (Auto) Lymph % (Auto) Gem % (Auto) Eos % (Auto) Baso % (Auto) Lymph # (Auto) Gem # (Auto) Eos # (Auto) Baso # (Auto) Abs Immat Gran (auto) Absolute Neuts (auto) Absolute Nucleated RBC Nucleated RBC % (auto) ESR PT INR APTT Sodium 135 Potassium 3.8 Chloride 104 Carbon Dioxide 25 Anion Gap 10 L BUN 8 L Creatinine 0.80 Estim Creat Clear Calc 76.4 Estimated GFR > 60 POC Glucose 277 H Random Glucose 315 H Lactic Acid Calcium 8.0 L D Total Bilirubin AST ALT Alkaline Phosphatase C-Reactive Protein Total Protein Albumin Lipase Urine Color Urine Appearance Urine pH Ur Specific [place] Urine Protein Urine Glucose (UA) Urine Ketones Urine Blood Urine Nitrite Ur Leukocyte Esterase Urine RBC Urine WBC Ur Squamous Epith Cells Urine Bacteria Urine Mucus Urine Yeast COVID-19 (KATHLEEN) COVID-19 [employer] [facility] <MITZI Castellon - Last Filed: 07/22/21 18:19> Discharge Plan Discharge Patient Disposition: Home, Self-Care <MITZI Castellon - Last Filed: 07/22/21 18:19> Discharge Diagnosis: left leg/foot cellulitis <MITZI Castellon - Last Filed: 07/22/21 18:19> Referrals: Physician,Unknown J [Primary Care Provider] - 1 Week <MITZI Castellon - Last Filed: 07/22/21 18:19> Discharge Medications: New doxycycline monohydrate 100 mg tablet 100 mg PO BID 7 Days Qty: 14 0RF Continued atorvastatin 10 mg tablet 1 tab PO DAILY 0RF aspirin 81 mg tablet,delayed release (DR/EC) 1 tab PO DAILY 0RF gabapentin 300 mg capsule 2 cap PO BEDTIME 0RF montelukast 10 mg tablet 1 tab PO QPM 0RF albuterol sulfate [ProAir HFA] 90 mcg/actuation HFA aerosol inhaler 2 puff PO Q4H PRN (Reason: wheezing) 0RF glipizide-metformin 5-500 mg tablet 2 tab PO BIDWM 0RF Advair HFA 115-21 mcg/actuation HFA aerosol inhaler 2 puff inhalation BID 0RF Incruse Ellipta 62.5 mcg/actuation blister with device 1 puff PO DAILY 0RF nystatin 100,000 unit/mL Suspension 400,000 unit PO QID 7 Days Qty: 112 0RF Protocol: Apply to: Apply to: Swish and swallow hydralazine 25 mg Tablet 25 mg PO TID 30 Days Qty: 90 0RF Protocol: Hold for SBP< HOLD for SBP < : 90 amlodipine 10 mg Tablet 10 mg PO DAILY 30 Days Qty: 30 0RF Protocol: Hold for SBP< HOLD for SBP < : 90 cyclobenzaprine 10 mg tablet 10 mg PO TID PRN (Reason: muscle spasm) Qty: 10 0RF lidocaine [Lidoderm] 5 % adhesive patch,medicated 1 patch topical DAILY Qty: 15 0RF Rx Instructions: leave on most painful area for up to 12 hrs albuterol sulfate 2.5 mg /3 mL (0.083 %) Solution For Nebulization 2.5 mg INHALATION Q4H PRN (Reason: Respiratory Distress) 0RF lisinopril-hydrochlorothiazide 20-12.5 mg Tablet 1 tab PO DAILY 0RF <MITZI Castellon - Last Filed: 07/22/21 18:19> Discharge Orders: Discharge Order (Routine); Ordered 07/11/21 Ordered By: Stephanie Flores <MITZI Castellon - Last Filed: 07/22/21 18:19> Diet: advance to usual diet <MITZI Castellon - Last Filed: 07/22/21 18:19> Activity on Discharge: As tolerated <MITZI Castellon - Last Filed: 07/22/21 18:19> Stand Alone Forms: Patient Portal Discharge page <MITZI Castellon - Last Filed: 07/22/21 18:19> Care Plan Goals: see below <MITZI Castellon - Last Filed: 07/22/21 18:19> Health Concerns: cellulitis <MITZI Castellon - Last Filed: 07/22/21 18:19> Plan of Treatment: please take entire course of antibiotics please follow diabetic diet and monitor blood sugars call to schedule a follow up appointment with your PCP no changes were made to your home medications please return if the redness or swelling of your left leg worsens <MITZI Castellon - Last Filed: 07/22/21 18:19> Assessment: see discharge summary I personally evaluated and examined this in conjunction with [facility] provider and agree with the management and disposition of this patient <MITZI Castellon - Last Filed: 07/22/21 18:19> Discharge Date/Time: 07/11/21 12:45 <MITZI Castellon - Last Filed: 07/22/21 18:19>
[2021-07-11] MEDS: vancomycin HCL 1,000 MG in 0.9 % Sodium Chloride 250 ML 270 MG IV (10:46)
--- NOTE | 2021-07-11 10:46 | MHC.CM.PN ---
PT BEING DISCHARGED PRIOR TO BEING SEEN BY CM HOWEVER PER RECORDS SHE IS FULLY INDEPENDENT AND NO SERVICES HAVE BEEN ORDERED PT TO ARRANGE TRANSPORTATION
== END 2021-07-11 12:45 | disposition home or self-care (01) | DRG 380 ==
LOC: HO.ED 22:39 → HO.EDOVER 23:28
PROVIDERS: Admitting Provider Internal Medicine; Emergency Provider Emergency Medicine Emergency Medical Services; Visit Provider Physician Assistant Medical
DX: E11.621 Type 2 diabetes mellitus with foot ulcer (principal); L97.529 Non-pressure chronic ulcer of other part of left foot with unspecified severity; L03.116 Cellulitis of left lower limb; E11.65 Type 2 diabetes mellitus with hyperglycemia; I10 Essential (primary) hypertension; J44.9 Chronic obstructive pulmonary disease, unspecified; E11.628 Type 2 diabetes mellitus with other skin complications; Z20.822 Contact with and (suspected) exposure to COVID-19; F17.210 Nicotine dependence, cigarettes, uncomplicated; Z71.6 Tobacco abuse counseling; Z88.0 Allergy status to penicillin; Z79.82 Long term (current) use of aspirin; Z79.899 Other long term (current) drug therapy
CPT/HCPCS: 36415; 73660; 80048; 80053; 81001; 81003; 82947; 83605; 83690; 85025; 85610; 85652; 85730; 86140; 87040; 87635; 96361; 96374; 96375; 96376; 99218; 99284; 99285; J0692; J0696; J1650; J2270; J2405; J3370

== ENCOUNTER 2021-08-21 05:32 | Inpatient (IN) | payer MEDICAID, SELFPAY ==
[2021-08-21] VITALS (11 sets, daily range): BP systolic 158–184; BP diastolic 71–89; PULSE 104–118; RESP 16–26; TEMP 36.6–37.2; O2SAT 88–100; BMI 26.6
--- NOTE | ~2021-08-21 | CT_ITS ---
EXAMINATION: CT LEFT ANKLE CLINICAL INFORMATION: Rule out tenosynovitis left foot COMPARISON: X-ray 12/24/2020 TECHNIQUE: Axial imaging. Sagittal and coronal reconstructions. 85 mL Omnipaque 350. FINDINGS: There are bony destructive changes of the second metatarsal head and neck, and the proximal base of the second proximal phalanx. This includes involvement of the articular surface, with and irregularity and destructive changes. The findings are highly suspicious for osteomyelitis and septic arthritis.. In the plantar soft tissues, there is marked soft tissue swelling, hypodensity with prominent cluster of air. This is located in between the first and second toes, proximally extending to the level of the MTP joint, including adjacent to the second MTP joint/second proximal phalanx. The larger component of this focus distally, measures approximately 2.2 x 1.7 cm (AP, transverse) area measured image 17:81. Findings are suspicious for an abscess. The air and hypodensity is tracking proximally along the muscle/tendons, predominantly of the second digit, to the level of the mid metatarsal over distance of approximately 5.6 cm in length. In the appropriate clinical circumstance, necrotizing fasciitis cannot be excluded. There are scattered arthritic changes present, including arthritis in some of the interphalangeal joints of toes, moderate third tarsometatarsal joint arthritis. Calcaneal spurring. More proximally at the level of the ankle joint and hindfoot, the Achilles tendon, medial flexor, peroneal, extensor tendons are grossly intact without significant tenosynovitis evident. There is soft tissue swelling and subcutaneous edema/cellulitis diffusely of the ankle and foot. No other loculated fluid collections identified. CT/CT foot LT w con IMPRESSION: 1. Bony destructive changes of the second metatarsal head/neck, the second proximal phalanx, highly suspicious of osteomyelitis and septic arthritis. 2. Soft tissue swelling and hypodense collection containing air in the plantar soft tissues, located between the first and second toes, tracking proximally more predominantly along the second digit tendons to the level of the midfoot. This is extending over distance of approximately 5.6 cm in length. The more prominent component of this focus distally measures 2.2 x 1.7 cm. Findings are suspicious for infection, abscess. Necrotizing fasciitis in the appropriate clinical circumstance cannot be excluded. Surgical consultation is recommended. 3. Extensive soft tissue swelling and subcutaneous edema and/or cellulitis of the ankle and foot. This result was discussed with Dr. Coffey at 10:14 AM on 07/24/2021 and it was ascertained that the content and urgency of the report was understood at the time of direct communication.
--- NOTE | ~2021-08-21 | XR_ITS ---
EXAMINATION: XR CHEST CLINICAL INFORMATION: Shortness of breath COMPARISON: X-ray chest 02/07/2021 TECHNIQUE: Frontal view of the chest was obtained. FINDINGS: The heart is borderline enlarged. There is vascular congestion present. Mild interstitial prominence. No focal consolidation. No effusion, or pneumothorax is seen. No acute osseous abnormality. XR/XR chest 1V IMPRESSION: Vascular and interstitial prominence suggesting fluid overload/mild interstitial pulmonary edema. Follow-up imaging for reassessment as clinically warranted.
--- NOTE | ~2021-08-21 | US_ITS ---
EXAMINATION: US VENOUS ULTRASOUND WITH DOPPLER LOWER EXTREMITY, left CLINICAL INFORMATION: Pain and edema COMPARISON: None TECHNIQUE: Ultrasound of the deep veins is performed from the hip to the calf with compression sonography and color and pulse Doppler assessment. Spectral analysis with color-flow imaging is performed. FINDINGS: LEFT: There is normal venous compression and respiratory variation and augmented flow. The visualized common femoral vein, superficial femoral vein, profunda femoral vein, popliteal vein, and the trifurcation region shows no evidence of deep venous thrombosis. There is no significant popliteal fossa cyst. If the patient's symptoms persist, followup ultrasound in 5 days 7 days might be of value to exclude proximal propagation from a non-visualized calf vein. US/US venous duplex LE BI IMPRESSION: No DVT demonstrated in the left lower extremity.
--- NOTE | ~2021-08-21 | MR_ITS ---
EXAMINATION: MRI LEFT FOOT WITHOUT AND WITH CONTRAST. CLINICAL INFORMATION: Rule out osteomyelitis, abscess. COMPARISON: CT foot 08/21/2021. X-ray left foot 07/10/2021 TECHNIQUE: Imaging in a high-field magnet without and with contrast. 7.5 mL Gadavist. FINDINGS: There is increased T2/low T1 signal in the plantar soft tissues, in the region between the first and second toes, plantar aspect of the second toe. This extends proximally at the level of the midfoot, extending along the plantar aspect aponeurosis/involving the underlying muscle/tendons. Redemonstrated is air within this region, with low signal present,, as seen on the prior CT scan. Distally, the area of T2 signal abnormality measures approximately 2.1 cm AP, 2.1 cm transverse. In the postcontrast sequences, there is predominantly nonenhancement in the area of increased T2 signal. The area of involvement extends over distance of approximately approximately 5.7 cm in length. In the region of the mid/forefoot, there appears to be confluent focus, with apparent peripheral enhancement, measuring 1.6 cm in length, 1.8 cm transverse, 0.4 cm AP. Reference image 4:13, image 15-17 of the short axis sequences. These findings may be related to phlegmonous change, abscess, or a combination of these. The presence of air in this region could be related to possible communication with an area of skin ulceration. In the appropriate clinical circumstance, necrotizing fasciitis would need to be considered and excluded. Question skin irregularity on the plantar aspect of the foot, in between the first and second metatarsals. Reference image 5:26. This could potentially represent an area of ulceration. Please clinically correlate. The abnormal soft tissue findings noted above, the second MTP joint and the marginating bones. Severe abnormal increased T2 signal and enhancement in the second proximal phalanx, the second metatarsal head and neck, with bony destructive changes, highly suspicious for osteomyelitis and septic arthritis. No additional areas of osteomyelitis is seen. There is mild peritendinitis/tenosynovitis associated with the plantar tendons at the level of the midfoot. . There is dorsal soft tissue swelling and the subcutaneous edema/cellulitis. Edema in the subcutaneous tissues otherwise circumferential around the foot. Moderate second and third MTP joint arthritis. MR/MR foot LT wo/w con IMPRESSION: 1. Abnormal findings indicative of osteomyelitis of the second proximal phalanx and the second metatarsal head and neck. There likely is associated septic arthritis. 2. Abnormal findings in the plantar soft soft tissues in between the first and second toes, and overlying the second toe, proximally extending level of the midfoot, along the plantar fascial plane and possibly involving the underlying muscles and tendons. These findings may related to phlegmonous change, abscess, or a combination of these. More loculated focus in the region of the mid/forefoot, measuring 1.6 x 1.8 x 0.4 cm with apparent peripheral enhancement, could represent an abscess. The presence of air within this region, could be related to possible communication with a skin ulcer. Necrotizing fasciitis would need to be considered and excluded in the appropriate clinical circumstance. 3. Question skin irregularity/ulceration in the plantar aspect of the forefoot, in between the first and second metatarsals. Please clinically correlate. 4. There is mild peritendinitis/tenosynovitis of the plantar tendons at the level of the midfoot. 5. Extensive soft tissue swelling and subcutaneous edema/cellulitis, more prominent dorsally. This result was discussed with Dr. Helm at 1:57 PM on 08/21/2021 and it was ascertained that the content and urgency of the report was understood at the time of direct communication.
--- NOTE | 2021-08-21 06:09 | ED.SKABFB ---
HPI - Skin/Abscess/Foreign Bdy General Chief complaint: Skin/Abscess/Foreign Body Stated complaint: left lower leg pain Time Seen by Provider: 08/21/21 05:47 Source: patient Mode of arrival: ambulatory Limitations: no limitations History of Present Illness HPI narrative: patient comes emergency room complaining of foot pus drainage, spreading erythema, chills. Patient has been admitted to the hospital for similar problems. Patient states that for a week she has been having pus drainage coming out between her great toe and 2nd toe of the left foot. Now she has erythema spreading upwards from her toe towards the knee. Patient states that she has been having multiple episodes of cellulitis in the same extremity, all started approximately 1 yr ago when she stepped into a nail at her house Related Data Home Medications Medication Instructions Recorded Confirmed albuterol sulfate 90 mcg/actuation 2 puff PO Q4H PRN 12/24/20 07/10/21 aerosol inhaler (ProAir HFA) aspirin 81 mg tablet,delayed 1 tab PO DAILY 12/24/20 07/10/21 release atorvastatin 10 mg tablet 1 tab PO DAILY 12/24/20 07/10/21 fluticasone propionate 115 2 puff INHALATION BID 12/24/20 07/10/21 mcg-salmeterol 21 mcg/actuation HFA inhaler (Advair HFA) gabapentin 300 mg capsule 2 cap PO BEDTIME 12/24/20 07/10/21 glipizide 5 mg-metformin 500 mg 2 tab PO BIDWM 12/24/20 07/10/21 tablet montelukast 10 mg tablet 1 tab PO QPM 12/24/20 07/10/21 umeclidinium 62.5 mcg/actuation 1 puff PO DAILY 12/24/20 07/10/21 blister powder for inhalation (Incruse Ellipta) albuterol sulfate 2.5 mg INHALATION Q4H PRN 07/11/21 07/11/21 lisinopril 20 1 tab PO DAILY 07/11/21 07/11/21 mg-hydrochlorothiazide 12.5 mg tablet Previous Rx's Medication Instructions Recorded amlodipine 10 mg tablet 10 mg PO DAILY 30 Days #30 tab 12/27/20 hydralazine 25 mg tablet 25 mg PO TID 30 Days #90 tab 12/27/20 nystatin 100,000 unit/mL oral 400,000 unit PO QID 7 Days #112 ml 12/27/20 suspension cyclobenzaprine 10 mg tablet 10 mg PO TID PRN #10 tab 02/07/21 lidocaine 5 % topical patch 1 patch TOPICAL DAILY #15 ea 02/07/21 (Lidoderm) doxycycline monohydrate 100 mg 100 mg PO BID 7 Days #14 tab 07/11/21 tablet Allergies Allergy/AdvReac Type Severity Reaction Status Date / Time Penicillins [PENICILLINS] Allergy Severe RASH Verified 02/07/21 06:17 amoxicillin [AMOXICILLIN] Allergy Intermediate HIVES Verified 02/07/21 06:17 Review of Systems Review of Systems: Constitutional : No Weight loss, No Fever, No Chills, No Night Sweats, No Fatigue, No Malaise ENT/Mouth : No Hearing loss, No Ear Pain, No Nasal Congestion, No Sinus Pain, No Hoarseness, No sore throat, No Rhinorrhea, No Swallowing Difficulty Eyes: No Eye Pain, No Swelling, No Redness, No Foreign Body, No Discharge, No Vision Changes Cardiovascular : No Chest Pain, No SOB, No Dyspnea on Exertion, No Orthopnea, No Edema, No Palpitations Respiratory : No Cough, No Sputum, No Wheezing, No Smoke Exposure, No Dyspnea Gastrointestinal : No Nausea, No Vomiting, No Diarrhea, No Constipation, No abdominal Pain, No Hematochezia, No Melena Genitourinary : no irregular bleeding, No Dysuria, No Urinary Frequency, No Hematuria, No Urinary Incontinence, No Urgency, No Flank Pain, No Urinary Flow Changes, No Hesitancy Musculoskeletal : No joint pain, No Myalgias, No Joint Swelling Skin : Complaining of pus draining between the great toe and the 2nd toe on the left foot, erythema in the left leg spreading upwards, pain to touch Neuro : No Weakness, No Numbness, No Paresthesias, No Loss of Consciousness, No Dizziness, No Headache Psych : No Anxiety/Panic, No Depression, No SI/HI/AH/VH, No Social Issues, Heme/Lymph: No Bruising, No Bleeding,No Lymphadenopathy Endocrine : No Polyuria, No Polydipsia, No Temperature Intolerance PMF Past Medical History Medical History Asthma COPD (chronic obstructive pulmonary disease) Diabetes Heart problem Hypertension Surgical History No pertinent past surgical history Social History Social History Household Members: Significant Other and Family Housing: House Do you presently have visiting nurse or other home services: No Alcohol intake: unknown Patient Tobacco Use Status: Current everyday Tobacco user Tobacco use type: Cigarette e-Cigarette/Vaping Use: Never Used Second Hand Smoke Exposure: Yes Advance Directives: No service: No Current occupational status: unemployed Physical Exam Vital Signs: Vital Signs: Last Vital Signs Temp 98.9 F 08/21/21 05:47 Pulse 118 H 08/21/21 05:47 Resp 26 H 08/21/21 05:47 BP 182/81 H 08/21/21 05:47 Pulse Ox 97 08/21/21 05:47 BMI result Body Mass Index 26.6 Const: Other: Appearance: Alert. Oriented X3. No acute distress. Eyes: Pupils equal, round and reactive to light. ENT: Pharynx normal. Neck: Normal inspection. Neck supple. No lymph nodes noted. No crepitus CVS: Normal heart rate and rhythm. Pulses normal. Normal S1 and S2 Respiratory: No respiratory distress. Breath sounds normal. No Wheezing. No rales Abdomen: Soft and nontender. No rigidity. No distention. good BS x4 Skin: Skin warm and dry. Normal skin color. see below Extremities: No lower extremity edema. No Lacerations. No Rash, foot on L is swollen, erythematous, pus draining between the 1st and 2nd toe, erythema extends up to below the L knee Neuro: Oriented X 3. No motor deficit. No sensory deficit. Moving all extermities. No slurred speech. CN 2 through 12 grossly intact Course Course Course Narrative: all labs are pending, BP stable, pt being given IV fluids and vanco and zosyn ct scan pending pt will need admission sign out given to Dr. Coffey Discharge Plan Discharge Clinical Impression: Cellulitis Patient Disposition: Admitted As Inpatient
[2021-08-21] MEDS: 0.9 % Sodium Chloride 1,000 ML 999 ML IVCONT ×2 (06:17→06:50)
[2021-08-21] MEDS: Morphine Sulfate 4 MG/ML CARTRIDGE IVPUSH (06:37)
[2021-08-21] MEDS: Piperacillin Sodium/Tazobactam 3.375 GM in 0.9 % Sodium Chloride 50 ML IV (06:45)
[2021-08-21 06:57] LABS: MANUAL DIFF FLAG NO
[2021-08-21 07:01] LABS: Basophils Percent Auto 0.5 % (0-2); Eosinophils Absolute Auto 0.1 X10*3/uL (0.0-0.4); Eosinophils Percent Auto 0.8 % (0-4); Hematocrit 33.6 % (37.0-47.0); Imm Gran Abs Auto 0.04 X10*3/uL (0.00-0.03); Imm Gran Pct Auto 0.5 % (0.0-0.4); Lymphocytes Absolute Auto 1.4 X10*3/uL (1.2-4.9); Lymphocytes Percent Auto 18.5 % (20-40); Mean Corpuscular HGB Conc 29.8 g/dl (31.0-35.0); Mean Corpuscular Hemoglobin 24.4 pg (27.0-33.0); Mean Platelet Volume 11.7 fL (9.4-12.3); Monocytes Absolute Auto 0.5 X10*3/uL (0.1-1.2); Monocytes Percent Auto 5.9 % (2-11); Neutrophils Absolute Auto 5.6 x10*3/uL (2.0-8.3); Neutrophils Percent Auto 73.8 % (45-73); Platelet Count 220 X10*3/uL (160-400); Red Cell Distribution Width 15.8 % (11.0-16.0); White Blood Count 7.6 X10*3/uL (4.8-10.8)
[2021-08-21 07:14] LABS: Lactic Acid 2.6 mmol/L (0.5-2.0)
[2021-08-21 07:15] LABS: COVID-19 Test Negative (Negative); IDNOW Serial# 16C4AD1C
[2021-08-21 07:21] LABS: Alanine Aminotransferase 8 U/L (0-31); Albumin Level 3.2 g/dL (3.5-5.0); Alkaline Phosphatase 88 U/L (39-117); Anion Gap 13 (12-20); Aspartate Amino Transferase 7 U/L (5-31); Bilirubin Direct < 0.2 mg/dL (0.0-0.5); Bilirubin Total 0.4 mg/dL (0.0-1.0); Blood Urea Nitrogen 9 mg/dL (9-16); Calcium 8.4 mg/dL (8.4-10.2); Carbon Dioxide 27 mmol/L (22-29); Chloride 99 mmol/L (96-108); Creatinine Clr Calc Pharmacy 83.2; Estimated Glomerular Filt Rate > 60; Glucose Random 339 mg/dL (60-115); Potassium 4.6 mmol/L (3.3-5.1); Sodium 134 mmol/L (135-145); Total Protein 5.8 g/dL (6.5-8.0)
[2021-08-21] MEDS: methylPREDNISolone Sod Succ 125 MG/2 ML VIAL IVPUSH (07:26)
[2021-08-21] MEDS: Magnesium Sulfate/H2O 2 GM/50 ML PIGGYBACK IV (07:27)
[2021-08-21] MEDS: Albuterol/Iprat 2.5/0.5MG 3 ML AMPUL.NEB INHALE ×4 (07:29→20:51)
[2021-08-21] MEDS: Albuterol Sulfate (0.083%) 2.5 MG/3 ML VIAL.NEB INHALE (07:29)
--- NOTE | 2021-08-21 07:36 | PC.RT ---
Patient came into the ED with exp. wheeze and coarse through out. she has a history of OPD and was during her purse lip breathing when I arrived to the room. Her breathing had recently started to bother her so she was using her Albuterol HFA at home with minimal relief
[2021-08-21] MEDS: iohexoL 350 MG/ML 100 ML INFUS..BTL 85 ML IV (08:14)
[2021-08-21] MEDS: Morphine Sulfate 2 MG/ML CARTRIDGE 1 MG IVPUSH (08:25)
[2021-08-21 08:53] LABS: Reflex Lactate? Lactic Acid Added
--- NOTE | 2021-08-21 09:37 | PHA.MEDREC ---
Pharmacy Consult ? Medication Reconciliation Pharmacy has completed the medication reconciliation.
[2021-08-21 09:47] LABS: C Reactive Protein 3.31 mg/dL (< or = 0.50)
[2021-08-21 10:09] LABS: Erythrocyte Sedimentation Rate 40 MM/HR (0-20)
[2021-08-21] MEDS: vancomycin HCL 1,000 MG in 0.9 % Sodium Chloride 250 ML 270 MG IV ×2 (10:16→22:38)
--- NOTE | 2021-08-21 10:46 | PM.IMHP ---
History of Present Illness Date of Service: 08/21/21 Attending physician on admission: Rose Helm Chief Complaint: Sepsis, foot cellulitis, COPD exacerbation. 51-year-old female history of diabetes, hypertension, COPD, HlP, active smoker-came to the hospital because of foot pain, erythema: Found to have possible cellulitis/sepsis of left foot area-she says that her 1st and 2nd toe it is an area-getting macerated and from few weeks was draining and currently the infection and erythema is spreading upon the lower leg just below knee area. Has foot pain. She said that she had appointment with her primary doctor last week but is not able to go there because of the snowstorm, and was managing at home with some showers unclear reasons. She also has the responsibility of the child development delayed? In the ED also found to have significant short of breath and wheezing. Lab imaging and ED course reviewed: Patient has tachycardia tachypnea initially, no leukocytosis or fever Lactic acid 2.6 CT of foot shows question of some suspicious of osteomyelitis, also possible foot abscess Patient was given nebs, steroids, IV antibiotic vanco and Zosyn by ED and requested admission for COPD exacerbation and sepsis/osteomyelitis Review of Systems Review of Systems: As above. Yes all other systems are reviewed and are negative [facility] Medical History Asthma COPD (chronic obstructive pulmonary disease) Diabetes Heart problem Hypertension Pertinent family history: Diabetes and hypertension runs in multiple family members. Surgical History No pertinent past surgical history Social History Household Members: Significant Other and Family Housing: House Do you presently have visiting nurse or other home services: No Alcohol intake: unknown Patient Tobacco Use Status: Current everyday Tobacco user Tobacco use type: Cigarette e-Cigarette/Vaping Use: Never Used Second Hand Smoke Exposure: Yes Advance Directives: No service: No Current occupational status: unemployed Meds Allergies Allergy/AdvReac Type Severity Reaction Status Date / Time Penicillins [PENICILLINS] Allergy Severe RASH Verified 02/07/21 06:17 amoxicillin [AMOXICILLIN] Allergy Intermediate HIVES Verified 02/07/21 06:17 Active Medications: Current Medications Albuterol/Ipratropium (Albuterol/Iprat 2.5/0.5mg 3 Ml Ampul.Neb) 3 ml INHALE Q3H PRN PRN Reason: sob Albuterol/Ipratropium (Albuterol/Iprat 2.5/0.5mg 3 Ml Ampul.Neb) 3 ml INHALE Q4H [facility] Amlodipine Besylate (Amlodipine Besylate 10 Mg Tablet) 10 mg PO DAILY [facility]; Protocol Aspirin (Aspirin Enteric Coated 81 Mg Tablet.Dr) 81 mg PO DAILY [facility] Atorvastatin Calcium (Atorvastatin Calcium 10 Mg Tablet) 10 mg PO DAILY [facility] Cyclobenzaprine HCl (Cyclobenzaprine Hcl 10 Mg Tablet) 10 mg PO TID PRN PRN Reason: muscle spasm Dextrose (Dextrose 50 % 25 Gm/50 Ml Vial) 25 gm IVPUSH Q15M PRN; Protocol PRN Reason: per Hypoglycemia Standing Ord. Gabapentin (Gabapentin 100 Mg Capsule) 100 mg PO TID [place] Gabapentin (Gabapentin 300 Mg Capsule) 600 mg PO BEDTIME [facility] Glucose (Glucose Gel 15 Gm Gel..Gram.) 15 gm PO Q15M PRN; Protocol PRN Reason: per Hypoglycemia Standing Ord. Hydralazine HCl (Hydralazine Hcl 25 Mg Tablet) 25 mg PO TID [facility]; Protocol Piperacillin Sod/Tazobactam (Sod 3.375 gm/ Sodium Chloride) 100 mls @ 100 mls/hr IV Q6H [facility] Insulin Human Lispro (Insulin Lispro 100 Unit/Ml 3 Ml Vial) 0 unit SUBCUT QIDACHS [facility]; Protocol Methylprednisolone Sodium Succinate (Methylprednisolone Sod Succ 40 Mg/Ml Vial) 40 mg IVPUSH DAILY [facility] Montelukast Sodium (Montelukast Sodium 10 Mg Tablet) 10 mg PO QPM [facility] Non-Formulary Medication (Fluticasone Propion-Salmeterol [Advair Hfa]) 2 puff INHALE BID [facility] Non-Formulary Medication (Lidocaine [Lidoderm]) 1 patch TOPICAL DAILY [facility] Non-Formulary Medication (Umeclidinium [Incruse Ellipta]) 1 puff PO DAILY [facility] Nystatin (Nystatin Oral Susp 500,000 Unit/5 Ml Oral.Susp) 400,000 unit PO QID [facility]; Protocol Pharmacy Consult (Consult Rx Perform Med Rec) 1 each MISCELLANE ONCE PRN PRN Reason: Consult order Pharmacy Consult (Consult Rx Vancomycin Dosing) 1 each MISCELLANE DAILY PRN PRN Reason: Consult order Sodium Chloride (0.9 % Sodium Chloride Flush 3 Ml Syringe) 3 ml IVFLUSH [facility] Home Medications Medication Instructions Recorded Confirmed Last Taken Type albuterol sulfate 90 mcg/actuation 2 puff PO Q4H PRN 12/24/20 08/21/21 07/10/21 21:00 History aerosol inhaler (ProAir HFA) aspirin 81 mg tablet,delayed 1 tab PO DAILY 12/24/20 08/21/21 07/10/21 11:00 History release atorvastatin 10 mg tablet 1 tab PO DAILY 12/24/20 08/21/21 07/09/21 21:00 History fluticasone propionate 115 2 puff INHALATION BID 12/24/20 08/21/21 07/10/21 11:00 History mcg-salmeterol 21 mcg/actuation HFA inhaler (Advair HFA) gabapentin 300 mg capsule 2 cap PO BEDTIME 12/24/20 08/21/21 07/10/21 21:00 History glipizide 5 mg-metformin 500 mg 2 tab PO BIDWM 12/24/20 08/21/21 07/10/21 11:00 History tablet montelukast 10 mg tablet 1 tab PO QPM 12/24/20 08/21/21 07/09/21 11:00 History umeclidinium 62.5 mcg/actuation 1 puff PO DAILY 12/24/20 08/21/21 07/10/21 11:00 History blister powder for inhalation (Incruse Ellipta) albuterol sulfate 2.5 mg INHALATION Q4H PRN 07/11/21 08/21/21 Unknown History lisinopril 20 1 tab PO DAILY 07/11/21 08/21/21 Unknown History mg-hydrochlorothiazide 12.5 mg tablet Physical Exam Vital Signs and Narrative: Vital Signs: Last Vital Signs Temp 98.2 F 08/21/21 08:27 Pulse 112 H 08/21/21 09:03 Resp 20 08/21/21 09:03 BP 173/79 H 08/21/21 09:03 Pulse Ox 92 08/21/21 09:03 BMI result Body Mass Index 26.6 Appearance: Alert.? Oriented X3.? not in distress.? Eyes: Pupils equal, round and reactive to light.? Sclera nonicteric.? ENT: Pharynx normal.? Moist mucous membranes. cvs: rrr, [id number] . res: clear to auscultation ,no rhonchii or wheezing abd: no rebound or guarding ,nt, bs present. ext pulses present , no cyanosis - left foot :has mild serosignous discharge between 1st and 2nd toes , erythema lower leg up (just below knee). Neuro: Alert oriented x3 ,no nonfocal Results Labs CBC and Chem 7: 08/21/21 06:48 08/21/21 06:48 Labs: Laboratory Results - last 24 hr 08/21/21 08/21/21 08/21/21 06:48 06:48 06:48 MCV 82.0 MCH 24.4 L MCHC 29.8 L RDW 15.8 Plt Count 220 MPV 11.7 Immature Gran % (Auto) 0.5 H Neut % (Auto) 73.8 H Lymph % (Auto) 18.5 L [place] % (Auto) 5.9 Eos % (Auto) 0.8 Baso % (Auto) 0.5 Lymph # (Auto) 1.4 [place] # (Auto) 0.5 Eos # (Auto) 0.1 Baso # (Auto) 0.0 Abs Immat Gran (auto) 0.04 H Absolute Neuts (auto) 5.6 Absolute Nucleated RBC 0.000 Nucleated RBC % (auto) 0.0 ESR Anion Gap 13 Estim Creat Clear Calc 83.2 Estimated GFR > 60 Random Glucose 339 H Lactic Acid 2.6 H* Calcium 8.4 Total Bilirubin 0.4 Direct Bilirubin < 0.2 AST 7 ALT 8 Alkaline Phosphatase 88 D C-Reactive Protein 3.31 H Total Protein 5.8 L Albumin 3.2 L COVID-19 (KATHLEEN) COVID-19 Clin Com 08/21/21 08/21/21 06:48 06:56 MCV MCH MCHC RDW Plt Count MPV Immature Gran % (Auto) Neut % (Auto) Lymph % (Auto) [place] % (Auto) Eos % (Auto) Baso % (Auto) Lymph # (Auto) [place] # (Auto) Eos # (Auto) Baso # (Auto) Abs Immat Gran (auto) Absolute Neuts (auto) Absolute Nucleated RBC Nucleated RBC % (auto) ESR 40 H Anion Gap Estim Creat Clear Calc Estimated GFR Random Glucose Lactic Acid Calcium Total Bilirubin Direct Bilirubin AST ALT Alkaline Phosphatase C-Reactive Protein Total Protein Albumin COVID-19 (KATHLEEN) Negative COVID-19 Clin Com See Note Imaging Radiologist's Impressions: Impressions Chest X-Ray 08/21/21 08:05 IMPRESSION: Vascular and interstitial prominence suggesting fluid overload/mild interstitial pulmonary edema. Follow-up imaging for reassessment as clinically warranted. Foot CT 08/21/21 08:10 IMPRESSION: 1. Bony destructive changes of the second metatarsal head/neck, the second proximal phalanx, highly suspicious of osteomyelitis and septic arthritis. 2. Soft tissue swelling and hypodense collection containing air in the plantar soft tissues, located between the first and second toes, tracking proximally more predominantly along the second digit tendons to the level of the midfoot. This is extending over distance of approximately 5.6 cm in length. The more prominent component of this focus distally measures 2.2 x 1.7 cm. Findings are suspicious for infection, abscess. Necrotizing fasciitis in the appropriate clinical circumstance cannot be excluded. Surgical consultation is recommended. 3. Extensive soft tissue swelling and subcutaneous edema and/or cellulitis of the ankle and foot. This result was discussed with Dr. Coffey at 10:14 AM on 07/24/2021 and it was ascertained that the content and urgency of the report was understood at the time of direct communication. Assessment and Plan (1) Sepsis: Status: Acute (2) Osteomyelitis: Status: Acute (3) COPD exacerbation: Status: Acute (4) Diabetes: Status: Acute Plan 51-year-old female with diabetic foot infection/osteomyelitis. 1.copd excerebation: Continue nebs, steroids, oxygen support. 2. sepsis /diabetic foot infection/osteomyelitis. ,possible foot abcess Blood culture pending Mild lactic acidosis ESR and CRP added CT shows suspicion of possible osteomyelitis, also possible is foot abscess, mri added Continue vanco Zosyn, vanco trough, id evaluation and surgical evaluation since question of abscess. Gentle hydration 3. Diabetes: Hold or oral hypoglycemic Fingersticks with coverage hba1c in am 4. Hypertension: Continue amlodipine, hold lisinopril/hydrochlorothiazide. Will start lisinopril in the morning. 5. Possible peripheral neuropathy possibly related to diabetes Continue home gabapentin 6. Active smoker: Nicotine patch DVT prophylaxis with subQ Lovenox Considering above COPD exacerbation, sepsis with cellulitis/foot abscess/osteo: Patient need IV antibiotics and further workup, patient would benefit from to midnight stays. Above management discussed with patient and patient's brother Diabetes in detail length both understand and in agreement with the above plan including use of IV antibiotics, nebs steroids . Time spent 70 minute Quality Stroke Does the patient have a stroke diagnosis?: No VTE Prior VTE?: No VTE Risk Level:: Medical - moderate - high VTE Device Contraindication: N/A - Device Ordered VTE Drug Contraindication: N/A - Med Ordered
[2021-08-21 11:06] LABS: ~Lactic Acid-LAB USE ONLY 1.8 mmol/L (0.5-2.0)
--- NOTE | 2021-08-21 11:52 | PHA.PROG ---
Admission Date/Time: August 21, 2021 10:32 Indication: Skin and Soft Tissue Infection Weight in k.353 kg Adjusted body weight in K.781 kg [place] body weight in Kg: Obesity Dosing Indication % IBW: Serum Creatinine - Last 168 Hours 08/21/21 06:48 Creatinine 0.75 Estimated CrCl and GFR - Last 168 Hours 08/21/21 06:48 Estim Creat Clear Calc 83.2 Estimated GFR > 60 Vancomycin Loading Dose: 1000 mg x1 dose Current Vancomycin Dosing Regimen: 1000 mg q12h Vancomycin Monitoring using AUC goal of 400 - 600 range with trough as surrogate marker: Model predicts a AUC of 518 and a trough of 15.9 Date and Time for next Vancomycin Level to be drawn: 08/22 @ 1999 Pharmacist Comments on Vancomycin Plan: Continue to monitor renal function. Vancomycin dosing will take advantage of Mix[employer] as a clinical decision support tool that uses Bayesian modeling to calculate individual patient's pharmacokinetic parameters and forecast the patient's drug concentration time course with the target goal AUC 24 range of 400 - 600 mg/L/hr.
[2021-08-21] MEDS: amLODIPine Besylate 10 MG TABLET PO (13:19)
[2021-08-21] MEDS: Gabapentin 100 MG CAPSULE PO ×3 (13:19→20:36)
[2021-08-21] MEDS: Enoxaparin Sodium 40 MG/0.4 ML SYRINGE SUBCUT (13:21)
[2021-08-21 13:36] LABS: Glucose, Whole Blood 366 mg/dL (60-115)
[2021-08-21] MEDS: Insulin Lispro 100 UNIT/ML 3 ML VIAL SUBCUT ×4 (13:38→20:31)
[2021-08-21] MEDS: oxyCODONE HCl Immed Release 5 MG TABLET PO ×2 (13:41→20:33)
[2021-08-21] MEDS: Nystatin Oral Susp 500,000 UNIT/5 ML ORAL.SUSP 400000 UNIT PO ×3 (14:02→18:38)
[2021-08-21] MEDS: Lactated Ringers 1,000 ML 80 ML IVCONT (14:02)
[2021-08-21 14:27] LABS: Glucose, Whole Blood 359 mg/dL (60-115)
--- NOTE | 2021-08-21 14:58 | P.CONGS_ITS ---
History of Present Illness Consult details Consult date: 08/21/21 Requesting physician: Rose Helm Narrative: 51-year-old female patient presenting to the emergency department with complaints of a right foot infection. She reports in injury to her right great toe after stepping on a nail in her apartment approximately 1 year ago. Since this time he has had repeated infections extending into the webspace between the great toe and the 2nd toe. For the past week she has noted some foul-smelling discharge at this location. She now notes redness extending up the leg to just below the knee. She reports some pain in the foot but denies pain in her calf or [place]. Workup with the emergency department revealed a normal WBC however CT of the foot and MRI of the right foot indicate but bony destruction at the distal 2nd metatarsal and proximal phalanx suggestive of osteomyelitis. There is also air tracking from the skin along the tendons more proximally suggestive of an abscess or fasciitis. Review of Systems Review of Systems: Yes all other systems are reviewed and are negative Constitutional: Constitutional: Denies chills, Denies fever(s) and Denies malaise Cardiovascular: Cardiovascular: Denies chest pain, Denies irregular heart rhythm, Denies palpitations and Denies dyspnea Respiratory: Respiratory: Denies chest congestion, Denies cough and Denies dyspnea Gastrointestinal: Gastrointestinal: Denies abdominal pain, Denies bloating, Denies constipation and Denies diarrhea Musculoskeletal: Musculoskeletal: Reports as per HPI Integumentary/Breasts: Skin/Breast: Reports as per HPI Neurologic: Reports Sensory deficit (Neuro) Endocrine: Endocrine: Denies palpitations Hematologic/Lymphatic: Hematologic/Lymphatic: Denies lymphadenopathy [facility] Past Medical History Medical History Asthma COPD (chronic obstructive pulmonary disease) Diabetes Heart problem Hypertension Surgical History Surgical History No pertinent past surgical history Social History Social History Household Members: Significant Other and Family Housing: House Do you presently have visiting nurse or other home services: No Alcohol intake: unknown Patient Tobacco Use Status: Current everyday Tobacco user Tobacco use type: Cigarette e-Cigarette/Vaping Use: Never Used Second Hand Smoke Exposure: Yes Advance Directives: No service: No Current occupational status: unemployed Meds Allergies Allergy/AdvReac Type Severity Reaction Status Date / Time Penicillins [PENICILLINS] Allergy Severe RASH Verified 02/07/21 06:17 amoxicillin [AMOXICILLIN] Allergy Intermediate HIVES Verified 02/07/21 06:17 Active Medications: Current Medications Albuterol/Ipratropium (Albuterol/Iprat 2.5/0.5mg 3 Ml Ampul.Neb) 3 ml INHALE RQ4H [facility] Last Admin: 08/21/21 12:40 Dose: 3 ml Documented by: Amlodipine Besylate (Amlodipine Besylate 10 Mg Tablet) 10 mg PO DAILY [facility]; Protocol Aspirin (Aspirin Enteric Coated 81 Mg Tablet.Dr) 81 mg PO DAILY [facility] Atorvastatin Calcium (Atorvastatin Calcium 10 Mg Tablet) 10 mg PO DAILY [facility] Clotrimazole (Clotrimazole 1 % Cream 15 Gm Tube) 1 appl TOPICAL BID [facility]; Protocol Cyclobenzaprine HCl (Cyclobenzaprine Hcl 10 Mg Tablet) 10 mg PO TID PRN PRN Reason: muscle spasm Dextrose (Dextrose 50 % 25 Gm/50 Ml Vial) 25 gm IVPUSH Q15M PRN; Protocol PRN Reason: per Hypoglycemia Standing Ord. Docusate Sodium (Docusate Sodium 100 Mg Capsule) 100 mg PO BEDTIME [facility] Enoxaparin Sodium (Enoxaparin Sodium 40 Mg/0.4 Ml Syringe) 40 mg SUBCUT Q24H [facility] Last Admin: 08/21/21 13:21 Dose: 40 mg Documented by: Fluticasone/Vilanterol (Fluticasone/Vilanterol 100/25 Blst.W.Dev) 1 puff INHALE DAILY [facility] Gabapentin (Gabapentin 100 Mg Capsule) 100 mg PO TID [facility] Last Admin: 08/21/21 13:19 Dose: 100 mg Documented by: Gabapentin (Gabapentin 300 Mg Capsule) 600 mg PO BEDTIME [facility] Glucose (Glucose Gel 15 Gm Gel..Gram.) 15 gm PO Q15M PRN; Protocol PRN Reason: per Hypoglycemia Standing Ord. Hydralazine HCl (Hydralazine Hcl 25 Mg Tablet) 25 mg PO TID [facility]; Protocol Piperacillin Sod/Tazobactam (Sod 3.375 gm/ Sodium Chloride) 100 mls @ 100 mls/hr IV Q6H [facility] Last Infusion: 08/21/21 14:05 Dose: Infused Documented by: Lactated Ringer's (Lr) 1,000 mls @ 80 mls/hr IVCONT .[id number] [facility] Last Admin: 08/21/21 14:02 Dose: 80 mls/hr Documented by: Vancomycin HCl 1,000 mg/ (Sodium Chloride) 270 mls @ 270 mls/hr IV Q12H [facility] Insulin Human Lispro (Insulin Lispro 100 Unit/Ml 3 Ml Vial) 0 unit SUBCUT QIDACHS [facility]; Protocol Last Admin: 08/21/21 13:38 Dose: 10 unit Documented by: Lidocaine (Lidocaine 4 % Patch Adh..Patch) 1 patch TRANSDERMA DAILY [facility] Methylprednisolone Sodium Succinate (Methylprednisolone Sod Succ 40 Mg/Ml Vial) 40 mg IVPUSH [facility] Montelukast Sodium (Montelukast Sodium 10 Mg Tablet) 10 mg PO BEDTIME [facility] Nicotine (Nicotine 21 Mg Patch.Td24) 21 mg TRANSDERMA DAILY [facility] Nystatin (Nystatin Oral Susp 500,000 Unit/5 Ml Oral.Susp) 400,000 unit PO QID [facility]; Protocol Last Admin: 08/21/21 14:02 Dose: 400,000 unit Documented by: Oxycodone HCl (Oxycodone Hcl Immed Release 5 Mg Tablet) 5 mg PO Q4H PRN PRN Reason: Pain, Mild (Pain Scale 1-3) Last Admin: 08/21/21 13:41 Dose: 5 mg Documented by: Pharmacy Consult (Consult Rx Perform Med Rec) 1 each MISCELLANE ONCE PRN PRN Reason: Consult order Pharmacy Consult (Consult Rx Vancomycin Dosing) 1 each MISCELLANE DAILY PRN PRN Reason: Consult order Polyethylene Glycol (Polyethylene Glycol 3350 17 Gm Powd.Pack) 17 gm PO DAILY [facility] Sodium Chloride (0.9 % Sodium Chloride Flush 3 Ml Syringe) 3 ml IVFLUSH QSHIFT [facility] Tiotropium [place] (Tiotropium [place] 18 Mcg Cap.W.Dev) 1 puff INHALE RDAILY [facility] Home Medications Medication Instructions Recorded Confirmed Last Taken Type albuterol sulfate 90 mcg/actuation 2 puff PO Q4H PRN 12/24/20 08/21/21 07/10/21 21:00 History aerosol inhaler (ProAir HFA) aspirin 81 mg tablet,delayed 1 tab PO DAILY 12/24/20 08/21/21 07/10/21 11:00 History release atorvastatin 10 mg tablet 1 tab PO DAILY 12/24/20 08/21/21 07/09/21 21:00 History fluticasone propionate 115 2 puff INHALATION BID 12/24/20 08/21/21 07/10/21 11:00 History mcg-salmeterol 21 mcg/actuation HFA inhaler (Advair HFA) gabapentin 300 mg capsule 2 cap PO BEDTIME 12/24/20 08/21/21 07/10/21 21:00 History glipizide 5 mg-metformin 500 mg 2 tab PO BIDWM 12/24/20 08/21/21 07/10/21 11:00 History tablet montelukast 10 mg tablet 1 tab PO QPM 12/24/20 08/21/21 07/09/21 11:00 History umeclidinium 62.5 mcg/actuation 1 puff PO DAILY 12/24/20 08/21/21 07/10/21 11:00 History blister powder for inhalation (Incruse Ellipta) albuterol sulfate 2.5 mg INHALATION Q4H PRN 07/11/21 08/21/21 Unknown History lisinopril 20 1 tab PO DAILY 07/11/21 08/21/21 Unknown History mg-hydrochlorothiazide 12.5 mg tablet Physical Exam Vital Signs: Vital Signs: Last Vital Signs Temp 98.6 F 08/21/21 14:06 Pulse 104 H 08/21/21 14:06 Resp 22 H 08/21/21 14:06 BP 172/89 H 08/21/21 14:06 Pulse Ox 98 08/21/21 14:06 BMI result Body Mass Index 26.6 Const: General: no acute distress and well developed Nutritional Appearance: well nourished Orientation/consciousness: patient oriented x3 Limitations: no limitations HENMT: Head: Yes normocephalic and Yes atraumatic Ears: hearing grossly normal bilaterally Teeth and gingiva: edentulous Neck: Neck: Yes trachea midline, Yes supple and Yes no JVD Resp: Effort & Inspection: normal respiratory effort, no audible wheezes, no cough and no respiratory distress Cardio: Rate: regular rate Rhythm: regular rhythm Heart sounds: S1 normal heart sound present and S2 normal heart sound present Skin: Other: Warm, dry, erythema in the right leg as noted bel Neuro: General: patient oriented x3 Sensory Exam: Sensory deficit (Neuro) Extrem: Other: right leg with an open draining wound at the webspace between the great and 2nd toe draining purulence fluid. A large collection was drained through the opening. Erythema noted on the dorsum of the foot as well as along the [place] extending to just below the knee. No subcutaneous emphysema is noted in the foot ankle or leg to indicate underlying necrotizing fasciitis. There is no tenderness to palpation throughout the leg. Calf muscles are soft with no tenderness to palpation. Results Labs Result diagrams: 08/21/21 06:48 08/21/21 06:48 Labs: Abnormal lab results 08/21/21 08/21/21 08/21/21 Range/Units 06:48 06:48 06:48 RBC 4.10 L (4.20-5.50) X10*6/uL Hgb 10.0 L (12.0-16.0) g/dl Hct 33.6 L (37.0-47.0) % MCH 24.4 L (27.0-33.0) pg MCHC 29.8 L (31.0-35.0) g/dl Immature Gran % (Auto) 0.5 H (0.0-0.4) % Neut % (Auto) 73.8 H (45-73) % Lymph % (Auto) 18.5 L (20-40) % Abs Immat Gran (auto) 0.04 H (0.00-0.03) X10*3/uL ESR (0-20) MM/HR Sodium 134 L (135-145) mmol/L POC Glucose (60-115) mg/dL Random Glucose 339 H (60-115) mg/dL Lactic Acid 2.6 H* (0.5-2.0) mmol/L C-Reactive Protein 3.31 H (< or = 0.50) mg/dL Total Protein 5.8 L (6.5-8.0) g/dL Albumin 3.2 L (3.5-5.0) g/dL 08/21/21 08/21/21 08/21/21 Range/Units 06:56 13:33 14:24 RBC (4.20-5.50) X10*6/uL Hgb (12.0-16.0) g/dl Hct (37.0-47.0) % MCH (27.0-33.0) pg MCHC (31.0-35.0) g/dl Immature Gran % (Auto) (0.0-0.4) % Neut % (Auto) (45-73) % Lymph % (Auto) (20-40) % Abs Immat Gran (auto) (0.00-0.03) X10*3/uL ESR 40 H (0-20) MM/HR Sodium (135-145) mmol/L POC Glucose 366 H* 359 H* (60-115) mg/dL Random Glucose (60-115) mg/dL Lactic Acid (0.5-2.0) mmol/L C-Reactive Protein (< or = 0.50) mg/dL Total Protein (6.5-8.0) g/dL Albumin (3.5-5.0) g/dL Short CBC 08/21/21 Range/Units 06:48 WBC 7.6 (4.8-10.8) X10*3/uL Hgb 10.0 L (12.0-16.0) g/dl Hct 33.6 L (37.0-47.0) % Plt Count 220 (160-400) X10*3/uL BMP 08/21/21 06:48 Sodium 134 L Potassium 4.6 D Chloride 99 Carbon Dioxide 27 BUN 9 Creatinine 0.75 Calcium 8.4 Liver Function 08/21/21 Range/Units 06:48 Total Bilirubin 0.4 (0.0-1.0) mg/dL Direct Bilirubin < 0.2 (0.0-0.5) mg/dL AST 7 (5-31) U/L ALT 8 (0-31) U/L Alkaline Phosphatase 88 D (39-117) U/L Albumin 3.2 L (3.5-5.0) g/dL All other labs normal. Imaging Additional studies: CT of foot and MRI of foot reviewed Assessment and Plan (1) Osteomyelitis: Status: Acute (2) Cellulitis: Status: Acute (3) Diabetic toe ulcer: Qualifiers: Diabetes mellitus type: type 2 Laterality: left Status: Acute Plan 51-year-old female patient with history of diabetes presenting with an abscess of the webspace between the great and 2nd toe right foot. Review of CT and MRI indicate osteomyelitis of the 2nd metatarsal and proximal phalanx of the 2nd toe. There is also air tracking to the skin which corresponds to the clinical examination of purulent drainage from the webspace. There is no evidence of fasciitis or tenosynovitis at this time. I attempted to pack the wound to allow a for better drainage however the patient refused this procedure. Recommend dry sterile dressings to the foot and IV antibiotics ( patient currently on Zosyn and vancomycin ). I will monitor the patient's wound during this hospital ization. She may need a washout in the OR if there is no improvement. Procedures Date of Service Date of Service: 08/21/21
[2021-08-21] MEDS: hydrALAZINE HCl 25 MG TABLET PO (15:19)
[2021-08-21 16:24] LABS: Glucose, Whole Blood 333 mg/dL (60-115)
[2021-08-21 20:15] LABS: Glucose, Whole Blood 384 mg/dL (60-115)
--- NOTE | 2021-08-21 20:18 | PC.NURSE ---
P patient wants to go outside to smoke I offered to contact MD for nicotine patch but patient refused,notified nursing detective supervisor E reassured patient that nicotine replacement could be available for her
--- NOTE | 2021-08-21 20:21 | PC.NURSE ---
P BS [id number] Best made aware E will adm insulin as ordered per scale
[2021-08-21] MEDS: Montelukast Sodium 10 MG TABLET PO (20:31)
[2021-08-21] MEDS: Docusate Sodium 100 MG CAPSULE PO (20:32)
[2021-08-21] MEDS: Gabapentin 300 MG CAPSULE 600 MG PO (20:32)
[2021-08-21] MEDS: hydrALAZINE HCl 50 MG TABLET PO (20:35)
[2021-08-22] VITALS (10 sets, daily range): BP systolic 152–176; BP diastolic 67–76; PULSE 106–123; RESP 12–22; TEMP 36.7–37.8; O2SAT 93–99
[2021-08-22] MEDS: oxyCODONE HCl Immed Release 5 MG TABLET PO ×5 (00:18→23:51)
[2021-08-22] MEDS: Albuterol/Iprat 2.5/0.5MG 3 ML AMPUL.NEB INHALE ×5 (04:26→20:09)
[2021-08-22 07:13] LABS: MANUAL DIFF FLAG NO
[2021-08-22 07:15] LABS: Basophils Percent Auto 0.2 % (0-2); Eosinophils Percent Auto 0.1 % (0-4); Hematocrit 33.2 % (37.0-47.0); Hemoglobin 9.9 g/dl (12.0-16.0); Imm Gran Abs Auto 0.05 X10*3/uL (0.00-0.03); Imm Gran Pct Auto 0.5 % (0.0-0.4); Lymphocytes Percent Auto 8.8 % (20-40); Mean Corpuscular HGB Conc 29.8 g/dl (31.0-35.0); Mean Corpuscular Hemoglobin 24.2 pg (27.0-33.0); Mean Corpuscular Volume 81.2 fL (80.0-98.0); Mean Platelet Volume 11.8 fL (9.4-12.3); Monocytes Absolute Auto 0.6 X10*3/uL (0.1-1.2); Monocytes Percent Auto 5.7 % (2-11); Neutrophils Absolute Auto 9.1 x10*3/uL (2.0-8.3); Neutrophils Percent Auto 84.7 % (45-73); Platelet Count 260 X10*3/uL (160-400); Red Blood Count 4.09 X10*6/uL (4.20-5.50); Red Cell Distribution Width 15.9 % (11.0-16.0); White Blood Count 10.8 X10*3/uL (4.8-10.8)
[2021-08-22 07:22] LABS: Glucose, Whole Blood 365 mg/dL (60-115)
--- NOTE | 2021-08-22 07:32 | PC.NURSE ---
pt showered at 0720, POC - 365, critical lab blood glucose 406, provider notified.
[2021-08-22 07:40] LABS: Anion Gap 15 (12-20); Blood Urea Nitrogen 14 mg/dL (9-16); Calcium 8.7 mg/dL (8.4-10.2); Carbon Dioxide 23 mmol/L (22-29); Chloride 101 mmol/L (96-108); Creatinine Clr Calc Pharmacy 73.4; Estimated Glomerular Filt Rate > 60; Glucose Fasting 406 mg/dL (60-99); Potassium 4.9 mmol/L (3.3-5.1); Sodium 134 mmol/L (135-145)
--- NOTE | 2021-08-22 08:22 | HO.PM.IMPN ---
Subjective Subjective Date of Service: 08/22/21 Interval History: dm uncontrolled, dm foot infection Review of Systems foot area drainage slightly improving ,still has erythema just below knee /swellin Denies any chest pain or shortness of breath or abdominal pain or fever chills or cough phlegm. Physical Exam Vital Signs: Vital Signs: Last Vital Signs Temp 100.0 F 08/22/21 00:08 Pulse 107 H 08/22/21 07:53 Resp 22 H 08/22/21 07:53 BP 173/73 H 08/22/21 00:08 Pulse Ox 93 08/22/21 00:08 BMI result Body Mass Index 26.6 Appearance: Alert.? Oriented X3.? not in distress.? Eyes: Pupils equal, round and reactive to light.? Sclera nonicteric.? ENT: Pharynx normal.? Moist mucous membranes. cvs: rrr, [id number] . res: clear to auscultation ,no rhonchii or wheezing abd: no rebound or guarding ,nt, bs present. ext pulses present , no cyanosis - left foot :sill has discharge between 1st and 2nd toes , erythema lower leg up (just below knee). Neuro:? Alert oriented x3 ,no nonfocal Objective Data Active Medications Albuterol/Ipratropium (Albuterol/Iprat 2.5/0.5mg 3 Ml Ampul.Neb) 3 ml INHALE RQ4H [facility] Last Admin: 08/22/21 07:48 Dose: 3 ml Documented by: SIMIN Amlodipine Besylate (Amlodipine Besylate 10 Mg Tablet) 10 mg PO DAILY [facility]; Protocol Aspirin (Aspirin Enteric Coated 81 Mg Tablet.) 81 mg PO DAILY [facility] Atorvastatin Calcium (Atorvastatin Calcium 10 Mg Tablet) 10 mg PO DAILY [facility] Clotrimazole (Clotrimazole 1 % Cream 15 Gm Tube) 1 appl TOPICAL BID [facility]; Protocol Last Admin: 08/21/21 20:48 Dose: Not Given Documented by: GERARD Non-Admin Reason: no available pharmacy notified Cyclobenzaprine HCl (Cyclobenzaprine Hcl 10 Mg Tablet) 10 mg PO TID PRN PRN Reason: muscle spasm Dextrose (Dextrose 50 % 25 Gm/50 Ml Vial) 25 gm IVPUSH Q15M PRN; Protocol PRN Reason: per Hypoglycemia Standing Ord. Docusate Sodium (Docusate Sodium 100 Mg Capsule) 100 mg PO BEDTIME [facility] Last Admin: 08/21/21 20:32 Dose: 100 mg Documented by: GERARD Enoxaparin Sodium (Enoxaparin Sodium 40 Mg/0.4 Ml Syringe) 40 mg SUBCUT Q24H [facility] Last Admin: 08/21/21 13:21 Dose: 40 mg Documented by: SABINA-CIERRA Fluticasone/Vilanterol (Fluticasone/Vilanterol 100/25 Blst.W.Dev) 1 puff INHALE DAILY [facility] Last Admin: 08/22/21 07:56 Dose: Not Given Documented by: EMILIE Non-Admin Reason: Med Not Available Gabapentin (Gabapentin 100 Mg Capsule) 100 mg PO TID [facility] Last Admin: 08/21/21 20:36 Dose: 100 mg Documented by: GERARD Gabapentin (Gabapentin 300 Mg Capsule) 600 mg PO BEDTIME [facility] Last Admin: 08/21/21 20:32 Dose: 600 mg Documented by: GERARD Glucose (Glucose Gel 15 Gm Gel..Gram.) 15 gm PO Q15M PRN; Protocol PRN Reason: per Hypoglycemia Standing Ord. Hydralazine HCl (Hydralazine Hcl 50 Mg Tablet) 50 mg PO TID [facility]; Protocol Last Admin: 08/21/21 20:35 Dose: 50 mg Documented by: GERARD Piperacillin Sod/Tazobactam (Sod 3.375 gm/ Sodium Chloride) 100 mls @ 100 mls/hr IV Q6H [facility] Last Infusion: 08/22/21 07:12 Dose: 0 mls/hr Documented by: SOTERO Lactated Ringer's (Lr) 1,000 mls @ 80 mls/hr IVCONT .[id number] [facility] Last Admin: 08/22/21 01:14 Dose: Not Given Documented by: FOZIA Non-Admin Reason: IV Running Vancomycin HCl 1,000 mg/ (Sodium Chloride) 270 mls @ 270 mls/hr IV Q12H [facility] Last Infusion: 08/22/21 01:16 Dose: 0 mls/hr Documented by: FOZIA Insulin Human Lispro (Insulin Lispro 100 Unit/Ml 3 Ml Vial) 0 unit SUBCUT QIDACHS [facility]; Protocol Last Admin: 08/21/21 20:31 Dose: 12 unit Documented by: GERARD Lidocaine (Lidocaine 4 % Patch Adh..Patch) 1 patch TRANSDERMA DAILY [facility] Montelukast Sodium (Montelukast Sodium 10 Mg Tablet) 10 mg PO BEDTIME [facility] Last Admin: 08/21/21 20:31 Dose: 10 mg Documented by: GERARD Nicotine (Nicotine 21 Mg Patch.Td24) 21 mg TRANSDERMA DAILY [facility] Nystatin (Nystatin Oral Susp 500,000 Unit/5 Ml Oral.Susp) 400,000 unit PO QID [facility]; Protocol Last Admin: 08/21/21 18:38 Dose: 400,000 unit Documented by: NANCY Oxycodone HCl (Oxycodone Hcl Immed Release 5 Mg Tablet) 5 mg PO Q4H PRN PRN Reason: Pain, Mild (Pain Scale 1-3) Last Admin: 08/22/21 00:18 Dose: 5 mg Documented by: FOZIA Pharmacy Consult (Consult Rx Perform Med Rec) 1 each MISCELLANE ONCE PRN PRN Reason: Consult order Pharmacy Consult (Consult Rx Vancomycin Dosing) 1 each MISCELLANE DAILY PRN PRN Reason: Consult order Polyethylene Glycol (Polyethylene Glycol 3350 17 Gm Powd.Pack) 17 gm PO DAILY [facility] Prednisone (Prednisone 20 Mg Tablet) 40 mg PO DAILY [facility] Sodium Chloride (0.9 % Sodium Chloride Flush 3 Ml Syringe) 3 ml IVFLUSH QSHIFT [facility] Last Admin: 08/22/21 01:15 Dose: Not Given Documented by: FOZIA Non-Admin Reason: IV Running Tiotropium [place] (Tiotropium [place] 18 Mcg Cap.W.Dev) 1 puff INHALE RDAILY [facility] Last Admin: 08/22/21 07:56 Dose: Not Given Documented by: EMILIE Non-Admin Reason: Med Not Available Labs CBC & Chem 7: 08/22/21 07:01 08/22/21 07:01 Labs: Laboratory Results - last 24 hr 08/21/21 08/21/21 08/21/21 06:48 06:56 10:52 MCV MCH MCHC RDW Plt Count MPV Immature Gran % (Auto) Neut % (Auto) Lymph % (Auto) [place] % (Auto) Eos % (Auto) Baso % (Auto) Lymph # (Auto) [place] # (Auto) Eos # (Auto) Baso # (Auto) Abs Immat Gran (auto) Absolute Neuts (auto) Absolute Nucleated RBC Nucleated RBC % (auto) ESR 40 H Anion Gap 13 Estim Creat Clear Calc 83.2 Estimated GFR > 60 POC Glucose Random Glucose 339 H Fasting Glucose Lactic Acid F/U @ 2Hr 1.8 Calcium 8.4 Total Bilirubin 0.4 Direct Bilirubin < 0.2 AST 7 ALT 8 Alkaline Phosphatase 88 D C-Reactive Protein 3.31 H Total Protein 5.8 L Albumin 3.2 L 08/21/21 08/21/21 08/21/21 13:33 14:24 16:19 MCV MCH MCHC RDW Plt Count MPV Immature Gran % (Auto) Neut % (Auto) Lymph % (Auto) [place] % (Auto) Eos % (Auto) Baso % (Auto) Lymph # (Auto) [place] # (Auto) Eos # (Auto) Baso # (Auto) Abs Immat Gran (auto) Absolute Neuts (auto) Absolute Nucleated RBC Nucleated RBC % (auto) ESR Anion Gap Estim Creat Clear Calc Estimated GFR POC Glucose 366 H* 359 H* 333 H Random Glucose Fasting Glucose Lactic Acid F/U @ 2Hr Calcium Total Bilirubin Direct Bilirubin AST ALT Alkaline Phosphatase C-Reactive Protein Total Protein Albumin 08/21/21 08/22/21 08/22/21 20:12 07:01 07:01 MCV 81.2 MCH 24.2 L MCHC 29.8 L RDW 15.9 Plt Count 260 MPV 11.8 Immature Gran % (Auto) 0.5 H Neut % (Auto) 84.7 H Lymph % (Auto) 8.8 L [place] % (Auto) 5.7 Eos % (Auto) 0.1 Baso % (Auto) 0.2 Lymph # (Auto) 1.0 L [place] # (Auto) 0.6 Eos # (Auto) 0.0 Baso # (Auto) 0.0 Abs Immat Gran (auto) 0.05 H Absolute Neuts (auto) 9.1 H Absolute Nucleated RBC 0.000 Nucleated RBC % (auto) 0.0 ESR Anion Gap 15 Estim Creat Clear Calc 73.4 Estimated GFR > 60 POC Glucose 384 H* Random Glucose Fasting Glucose 406 H* Lactic Acid F/U @ 2Hr Calcium 8.7 Total Bilirubin Direct Bilirubin AST ALT Alkaline Phosphatase C-Reactive Protein Total Protein Albumin 08/22/21 07:15 MCV MCH MCHC RDW Plt Count MPV Immature Gran % (Auto) Neut % (Auto) Lymph % (Auto) [place] % (Auto) Eos % (Auto) Baso % (Auto) Lymph # (Auto) [place] # (Auto) Eos # (Auto) Baso # (Auto) Abs Immat Gran (auto) Absolute Neuts (auto) Absolute Nucleated RBC Nucleated RBC % (auto) ESR Anion Gap Estim Creat Clear Calc Estimated GFR POC Glucose 365 H* Random Glucose Fasting Glucose Lactic Acid F/U @ 2Hr Calcium Total Bilirubin Direct Bilirubin AST ALT Alkaline Phosphatase C-Reactive Protein Total Protein Albumin Assessment and Plan (1) COPD exacerbation: Status: Acute (2) Cellulitis: Status: Acute (3) Hyperglycemia: Status: Acute (4) Cellulitis: Status: Acute Plan 51-year-old female with diabetic foot infection/osteomyelitis. 1.copd excerebation seems improve d Continue nebs, switch to steroids, oxygen support. 2. sepsis /diabetic foot infection/osteomyelitis.? ,possible foot abcess Blood culture neg @24 hrs Mild lactic acidosis ESR [address] shows suspicion of possible osteomyelitis, also possible is foot abscess, mri :osteomyelitis of the second proximal phalanx and the second metatarsal head and neck,also showed abcess Continue vanco Zosyn, vanco trough, surgical -Left foot wound remains open and draining; decreased pus noted today. Id eval pending surgery followin 3. Diabetes:uncontrolled -due to foot infcetion, steriods switched to po steriods Hold or oral hypoglycemic Fingersticks with adjusted coverage, adjusted glipizide hba1c 10 may need lantus 4. Hypertension:?uncontrolled Continue amlodipine,adjusted hydralazine , hold lisinopril/hydrochlorothiazide. added lisinopril . 5. Possible peripheral neuropathy? possibly related to diabetes Continue home gabapentin 6. Active smoker: Nicotine patch DVT prophylaxis with subQ Lovenox patient is inpatient-iv antibiotics ,may need piccline for shelter antibiotics,also may need surgerical intervention if foot infection not improve further. Above was discussed with the patient in detail length she understand and in agreement with the above plan. Quality Stroke Does the patient have a stroke diagnosis?: No VTE Prior VTE?: No VTE Risk Level:: Medical - moderate - high VTE Device Contraindication: N/A - Device Ordered VTE Drug Contraindication: N/A - Med Ordered
[2021-08-22] MEDS: Insulin Lispro 100 UNIT/ML 3 ML VIAL SUBCUT ×4 (08:44→21:17)
[2021-08-22] MEDS: predniSONE 20 MG TABLET 40 MG PO (08:45)
[2021-08-22] MEDS: Nystatin Oral Susp 500,000 UNIT/5 ML ORAL.SUSP 400000 UNIT PO ×4 (08:45→21:16)
[2021-08-22] MEDS: Lidocaine 4 % Patch ADH..PATCH 1 PATCH TRANSDERMA (08:46)
[2021-08-22] MEDS: hydrALAZINE HCl 50 MG TABLET PO ×3 (08:47→21:18)
[2021-08-22] MEDS: Gabapentin 100 MG CAPSULE PO ×3 (08:47→21:18)
[2021-08-22] MEDS: Aspirin Enteric Coated 81 MG TABLET.DR PO (08:47)
[2021-08-22] MEDS: amLODIPine Besylate 10 MG TABLET PO (08:48)
[2021-08-22] MEDS: 0.9 % Sodium Chloride Flush 3 ML SYRINGE IVFLUSH ×2 (08:49→23:51)
[2021-08-22] MEDS: Atorvastatin Calcium 10 MG TABLET PO (08:53)
[2021-08-22 09:12] LABS: Estimated Average Glucose 249 mg/dL; Hemoglobin A1c % 10.3 %
--- NOTE | 2021-08-22 09:39 | PC.NURSE ---
medicated per provider order, pt now requesting nicotine patch and PRN pain medication. provider at bedside explaining need to stay at [facility] [place] vs leaving AMA. provider cleaned/wrapped foot, lidocaine patch and ointment applied at this time.
--- NOTE | 2021-08-22 09:39 | PM.PNGS ---
Subjective Subjective Date of Service: 08/22/21 Interval history: Patient requesting to leave; feels she can take the antibiotics at home. She feels the redness and swelling in the leg is much improved. Physical Exam Vital Signs: Vital Signs: Last Vital Signs Temp 100.0 F 08/22/21 00:08 Pulse 107 H 08/22/21 07:53 Resp 22 H 08/22/21 07:53 BP 173/73 H 08/22/21 00:08 Pulse Ox 93 08/22/21 00:08 BMI result Body Mass Index 26.6 Const: General: anxious and poor hygiene Nutritional Appearance: well nourished Orientation/consciousness: patient oriented x3 Resp: Effort & Inspection: normal respiratory effort, no audible wheezes, no cough and no respiratory distress Skin: Other: warm and dry General skin exam: no ecchymosis Neuro: General: patient oriented x3 Extrem: Other: left foot dressings changed. Small amount of discharge noted on dressing, no fluctuance, no subcutaneous emphysema, minimal discharged with pressure on the webspace of the great toe and second toe. Erythema on foot is much improved Edema in left leg remains No fluctuance DSD applied Objective Data Active Medications Albuterol/Ipratropium (Albuterol/Iprat 2.5/0.5mg 3 Ml Ampul.Neb) 3 ml INHALE RQ4H [facility] Last Admin: 08/22/21 07:48 Dose: 3 ml Documented by: SIMIN Amlodipine Besylate (Amlodipine Besylate 10 Mg Tablet) 10 mg PO DAILY [facility]; Protocol Last Admin: 08/22/21 08:48 Dose: 10 mg Documented by: SOTERO Aspirin (Aspirin Enteric Coated 81 Mg Tablet.Dr) 81 mg PO DAILY [facility] Last Admin: 08/22/21 08:47 Dose: 81 mg Documented by: SOTERO Atorvastatin Calcium (Atorvastatin Calcium 10 Mg Tablet) 10 mg PO DAILY [facility] Last Admin: 08/22/21 08:53 Dose: 10 mg Documented by: SOTERO Clotrimazole (Clotrimazole 1 % Cream 15 Gm Tube) 1 appl TOPICAL BID [facility]; Protocol Last Admin: 08/21/21 20:48 Dose: Not Given Documented by: GERARD Non-Admin Reason: no available pharmacy notified Cyclobenzaprine HCl (Cyclobenzaprine Hcl 10 Mg Tablet) 10 mg PO TID PRN PRN Reason: muscle spasm Dextrose (Dextrose 50 % 25 Gm/50 Ml Vial) 25 gm IVPUSH Q15M PRN; Protocol PRN Reason: per Hypoglycemia Standing Ord. Docusate Sodium (Docusate Sodium 100 Mg Capsule) 100 mg PO BEDTIME [facility] Last Admin: 08/21/21 20:32 Dose: 100 mg Documented by: GERARD Enoxaparin Sodium (Enoxaparin Sodium 40 Mg/0.4 Ml Syringe) 40 mg SUBCUT Q24H [facility] Last Admin: 08/21/21 13:21 Dose: 40 mg Documented by: N-STALK Fluticasone/Vilanterol (Fluticasone/Vilanterol 100/25 Blst.W.Dev) 1 puff INHALE DAILY [facility] Last Admin: 08/22/21 07:56 Dose: Not Given Documented by: EMILIE Non-Admin Reason: Med Not Available Gabapentin (Gabapentin 100 Mg Capsule) 100 mg PO TID [facility] Last Admin: 08/22/21 08:47 Dose: 100 mg Documented by: SOTERO Gabapentin (Gabapentin 300 Mg Capsule) 600 mg PO BEDTIME [facility] Last Admin: 08/21/21 20:32 Dose: 600 mg Documented by: GERARD Glucose (Glucose Gel 15 Gm Gel..Gram.) 15 gm PO Q15M PRN; Protocol PRN Reason: per Hypoglycemia Standing Ord. Hydralazine HCl (Hydralazine Hcl 50 Mg Tablet) 50 mg PO TID [facility]; Protocol Last Admin: 08/22/21 08:47 Dose: 50 mg Documented by: SOTERO Piperacillin Sod/Tazobactam (Sod 3.375 gm/ Sodium Chloride) 100 mls @ 100 mls/hr IV Q6H [facility] Last Infusion: 08/22/21 07:12 Dose: 0 mls/hr Documented by: SOTERO Lactated Ringer's (Lr) 1,000 mls @ 80 mls/hr IVCONT .[id number] [facility] Last Infusion: 08/22/21 08:48 Dose: 0 mls/hr Documented by: RIGO Vancomycin HCl 1,000 mg/ (Sodium Chloride) 270 mls @ 270 mls/hr IV Q12H [facility] Last Infusion: 08/22/21 01:16 Dose: 0 mls/hr Documented by: FOZIA Insulin Human Lispro (Insulin Lispro 100 Unit/Ml 3 Ml Vial) 0 unit SUBCUT QIDACHS [facility]; Protocol Last Admin: 08/22/21 08:44 Dose: 14 unit Documented by: SOTERO Lidocaine (Lidocaine 4 % Patch Adh..Patch) 1 patch TRANSDERMA DAILY [facility] Last Admin: 08/22/21 08:46 Dose: 1 patch Documented by: SOTERO Montelukast Sodium (Montelukast Sodium 10 Mg Tablet) 10 mg PO BEDTIME [facility] Last Admin: 08/21/21 20:31 Dose: 10 mg Documented by: GERARD Nicotine (Nicotine 21 Mg Patch.Td24) 21 mg TRANSDERMA DAILY [facility] Last Admin: 08/22/21 08:50 Dose: Not Given Documented by: SOTERO Non-Admin Reason: Patient Refused Nystatin (Nystatin Oral Susp 500,000 Unit/5 Ml Oral.Susp) 400,000 unit PO QID [facility]; Protocol Last Admin: 08/22/21 08:45 Dose: 400,000 unit Documented by: SOTERO Oxycodone HCl (Oxycodone Hcl Immed Release 5 Mg Tablet) 5 mg PO Q4H PRN PRN Reason: Pain, Mild (Pain Scale 1-3) Last Admin: 08/22/21 00:18 Dose: 5 mg Documented by: FOZIA Pharmacy Consult (Consult Rx Perform Med Rec) 1 each MISCELLANE ONCE PRN PRN Reason: Consult order Pharmacy Consult (Consult Rx Vancomycin Dosing) 1 each MISCELLANE DAILY PRN PRN Reason: Consult order Polyethylene Glycol (Polyethylene Glycol 3350 17 Gm Powd.Pack) 17 gm PO DAILY [facility] Last Admin: 08/22/21 08:57 Dose: Not Given Documented by: SOTERO Non-Admin Reason: Patient Refused Prednisone (Prednisone 20 Mg Tablet) 40 mg PO DAILY [facility] Last Admin: 08/22/21 08:45 Dose: 40 mg Documented by: SOTERO Sodium Chloride (0.9 % Sodium Chloride Flush 3 Ml Syringe) 3 ml IVFLUSH QSHIFT [facility] Last Admin: 08/22/21 08:49 Dose: 3 ml Documented by: SOTERO Tiotropium [place] (Tiotropium [place] 18 Mcg Cap.W.Dev) 1 puff INHALE RDAILY [facility] Last Admin: 08/22/21 07:56 Dose: Not Given Documented by: EMILIE Non-Admin Reason: Med Not Available Labs CBC & Chem 7: 08/22/21 07:01 08/22/21 07:01 Labs: Laboratory Results - last 24 hr 08/21/21 08/21/21 08/21/21 06:48 06:56 10:52 MCV MCH MCHC RDW Plt Count MPV Immature Gran % (Auto) Neut % (Auto) Lymph % (Auto) [place] % (Auto) Eos % (Auto) Baso % (Auto) Lymph # (Auto) [place] # (Auto) Eos # (Auto) Baso # (Auto) Abs Immat Gran (auto) Absolute Neuts (auto) Absolute Nucleated RBC Nucleated RBC % (auto) ESR 40 H Anion Gap Estim Creat Clear Calc Estimated GFR POC Glucose Fasting Glucose Estimat Average Glucose Hemoglobin A1c % Lactic Acid F/U @ 2Hr 1.8 Calcium C-Reactive Protein 3.31 H 08/21/21 08/21/21 08/21/21 13:33 14:24 16:19 MCV MCH MCHC RDW Plt Count MPV Immature Gran % (Auto) Neut % (Auto) Lymph % (Auto) [place] % (Auto) Eos % (Auto) Baso % (Auto) Lymph # (Auto) [place] # (Auto) Eos # (Auto) Baso # (Auto) Abs Immat Gran (auto) Absolute Neuts (auto) Absolute Nucleated RBC Nucleated RBC % (auto) ESR Anion Gap Estim Creat Clear Calc Estimated GFR POC Glucose 366 H* 359 H* 333 H Fasting Glucose Estimat Average Glucose Hemoglobin A1c % Lactic Acid F/U @ 2Hr Calcium C-Reactive Protein 08/21/21 08/22/21 08/22/21 20:12 07:01 07:01 MCV 81.2 MCH 24.2 L MCHC 29.8 L RDW 15.9 Plt Count 260 MPV 11.8 Immature Gran % (Auto) 0.5 H Neut % (Auto) 84.7 H Lymph % (Auto) 8.8 L [place] % (Auto) 5.7 Eos % (Auto) 0.1 Baso % (Auto) 0.2 Lymph # (Auto) 1.0 L [place] # (Auto) 0.6 Eos # (Auto) 0.0 Baso # (Auto) 0.0 Abs Immat Gran (auto) 0.05 H Absolute Neuts (auto) 9.1 H Absolute Nucleated RBC 0.000 Nucleated RBC % (auto) 0.0 ESR Anion Gap 15 Estim Creat Clear Calc 73.4 Estimated GFR > 60 POC Glucose 384 H* Fasting Glucose 406 H* Estimat Average Glucose Hemoglobin A1c % Lactic Acid F/U @ 2Hr Calcium 8.7 C-Reactive Protein 08/22/21 08/22/21 07:01 07:15 MCV MCH MCHC RDW Plt Count MPV Immature Gran % (Auto) Neut % (Auto) Lymph % (Auto) [place] % (Auto) Eos % (Auto) Baso % (Auto) Lymph # (Auto) [place] # (Auto) Eos # (Auto) Baso # (Auto) Abs Immat Gran (auto) Absolute Neuts (auto) Absolute Nucleated RBC Nucleated RBC % (auto) ESR Anion Gap Estim Creat Clear Calc Estimated GFR POC Glucose 365 H* Fasting Glucose Estimat Average Glucose 249 Hemoglobin A1c % 10.3 Lactic Acid F/U @ 2Hr Calcium C-Reactive Protein Microbiology Microbiology Results: Microbiology 08/21/21 06:50 Blood Culture - Preliminary Blood - Venous No growth after 24 hours. 08/21/21 06:50 Blood Culture - Preliminary Blood - Venous No growth after 24 hours. Procedures Date of Service Date of Service: 08/22/21 Progress Note: A&P Assessment and plan (1) Diabetic toe ulcer: Status: Acute (2) Cellulitis: Status: Acute (3) Osteomyelitis: Status: Acute Plan Left foot wound remains open and draining; decreased pus noted today Erythema on foot is improved Left leg edema remains. Will need antibiotics for osteomyelitis. Fall Risk Details Current Medications: Current Medications Albuterol/Ipratropium (Albuterol/Iprat 2.5/0.5mg 3 Ml Ampul.Neb) 3 ml INHALE RQ4H [facility] Last Admin: 08/22/21 07:48 Dose: 3 ml Documented by: Amlodipine Besylate (Amlodipine Besylate 10 Mg Tablet) 10 mg PO DAILY [facility]; Protocol Last Admin: 08/22/21 08:48 Dose: 10 mg Documented by: Aspirin (Aspirin Enteric Coated 81 Mg Tablet.) 81 mg PO DAILY [facility] Last Admin: 08/22/21 08:47 Dose: 81 mg Documented by: Atorvastatin Calcium (Atorvastatin Calcium 10 Mg Tablet) 10 mg PO DAILY [facility] Last Admin: 08/22/21 08:53 Dose: 10 mg Documented by: Clotrimazole (Clotrimazole 1 % Cream 15 Gm Tube) 1 appl TOPICAL BID [facility]; Protocol Last Admin: 08/21/21 20:48 Dose: Not Given Documented by: Cyclobenzaprine HCl (Cyclobenzaprine Hcl 10 Mg Tablet) 10 mg PO TID PRN PRN Reason: muscle spasm Dextrose (Dextrose 50 % 25 Gm/50 Ml Vial) 25 gm IVPUSH Q15M PRN; Protocol PRN Reason: per Hypoglycemia Standing Ord. Docusate Sodium (Docusate Sodium 100 Mg Capsule) 100 mg PO BEDTIME [facility] Last Admin: 08/21/21 20:32 Dose: 100 mg Documented by: Enoxaparin Sodium (Enoxaparin Sodium 40 Mg/0.4 Ml Syringe) 40 mg SUBCUT Q24H [facility] Last Admin: 08/21/21 13:21 Dose: 40 mg Documented by: Fluticasone/Vilanterol (Fluticasone/Vilanterol 100/25 Blst.W.Dev) 1 puff INHALE DAILY [facility] Last Admin: 08/22/21 07:56 Dose: Not Given Documented by: Gabapentin (Gabapentin 100 Mg Capsule) 100 mg PO TID [facility] Last Admin: 08/22/21 08:47 Dose: 100 mg Documented by: Gabapentin (Gabapentin 300 Mg Capsule) 600 mg PO BEDTIME [facility] Last Admin: 08/21/21 20:32 Dose: 600 mg Documented by: Glucose (Glucose Gel 15 Gm Gel..Gram.) 15 gm PO Q15M PRN; Protocol PRN Reason: per Hypoglycemia Standing Ord. Hydralazine HCl (Hydralazine Hcl 50 Mg Tablet) 50 mg PO TID [facility]; Protocol Last Admin: 08/22/21 08:47 Dose: 50 mg Documented by: Piperacillin Sod/Tazobactam (Sod 3.375 gm/ Sodium Chloride) 100 mls @ 100 mls/hr IV Q6H [facility] Last Infusion: 08/22/21 07:12 Dose: Infused Documented by: Lactated Ringer's (Lr) 1,000 mls @ 80 mls/hr IVCONT .[id number] [facility] Last Infusion: 08/22/21 08:48 Dose: Infused Documented by: Vancomycin HCl 1,000 mg/ (Sodium Chloride) 270 mls @ 270 mls/hr IV Q12H [facility] Last Infusion: 08/22/21 01:16 Dose: Infused Documented by: Insulin Human Lispro (Insulin Lispro 100 Unit/Ml 3 Ml Vial) 0 unit SUBCUT QIDACHS [facility]; Protocol Last Admin: 08/22/21 08:44 Dose: 14 unit Documented by: Lidocaine (Lidocaine 4 % Patch Adh..Patch) 1 patch TRANSDERMA DAILY [facility] Last Admin: 08/22/21 08:46 Dose: 1 patch Documented by: Montelukast Sodium (Montelukast Sodium 10 Mg Tablet) 10 mg PO BEDTIME [facility] Last Admin: 08/21/21 20:31 Dose: 10 mg Documented by: Nicotine (Nicotine 21 Mg Patch.Td24) 21 mg TRANSDERMA DAILY [facility] Last Admin: 08/22/21 08:50 Dose: Not Given Documented by: Nystatin (Nystatin Oral Susp 500,000 Unit/5 Ml Oral.Susp) 400,000 unit PO QID [facility]; Protocol Last Admin: 08/22/21 08:45 Dose: 400,000 unit Documented by: Oxycodone HCl (Oxycodone Hcl Immed Release 5 Mg Tablet) 5 mg PO Q4H PRN PRN Reason: Pain, Mild (Pain Scale 1-3) Last Admin: 08/22/21 00:18 Dose: 5 mg Documented by: Pharmacy Consult (Consult Rx Perform Med Rec) 1 each MISCELLANE ONCE PRN PRN Reason: Consult order Pharmacy Consult (Consult Rx Vancomycin Dosing) 1 each MISCELLANE DAILY PRN PRN Reason: Consult order Polyethylene Glycol (Polyethylene Glycol 3350 17 Gm Powd.Pack) 17 gm PO DAILY [facility] Last Admin: 08/22/21 08:57 Dose: Not Given Documented by: Prednisone (Prednisone 20 Mg Tablet) 40 mg PO DAILY [facility] Last Admin: 08/22/21 08:45 Dose: 40 mg Documented by: Sodium Chloride (0.9 % Sodium Chloride Flush 3 Ml Syringe) 3 ml IVFLUSH QSHIFT [facility] Last Admin: 08/22/21 08:49 Dose: 3 ml Documented by: Tiotropium [place] (Tiotropium [place] 18 Mcg Cap.W.Dev) 1 puff INHALE RDAILY [facility] Last Admin: 03/13/22 07:56 Dose: Not Given Documented by: Time Spent With Patient Time: Total time spent is greater than 50% in coordination of care (as documented) at patient's floor/unit and/or counseling patient: Time with patient: 15 - 24 minutes Quality Stroke Does the patient have a stroke diagnosis?: No VTE Prior VTE?: No VTE Risk Level:: Medical - moderate - high VTE Device Contraindication: N/A - Device Ordered VTE Drug Contraindication: N/A - Med Ordered
[2021-08-22] MEDS: vancomycin HCL 1,000 MG in 0.9 % Sodium Chloride 250 ML 270 MG IV (10:24)
[2021-08-22] MEDS: Enoxaparin Sodium 40 MG/0.4 ML SYRINGE SUBCUT (10:25)
[2021-08-22] MEDS: Nicotine 21 MG PATCH.TD24 TRANSDERMA (10:25)
[2021-08-22] MEDS: Clotrimazole 1 % Cream 15 GM TUBE 1 APPL TOPICAL ×2 (10:26→21:18)
[2021-08-22] MEDS: Cyclobenzaprine HCl 10 MG TABLET PO ×2 (10:26→14:35)
--- NOTE | 2021-08-22 10:39 | PC.NURSE ---
medicated per provider order.
--- NOTE | 2021-08-22 11:30 | MHC.CM.PN ---
CM MET WITH PT AND S/O WHO WAS AT BEDSIDE PT REPORTS SHE LIVES WITH HER BF AND DISABLED SON SHE REPORTS SHE IS INDEPENDENT WITH CARE AND NO DME AND NO SERVICES PT REPORTS HER PCP IS DANILO RASHID ON [address] IN [place] PT HAS A HCP ON FILE PT REPORTS SHE IS VACCINATED AGAINST COVID-19 WITH PFIZER X 3 CURRENT DC PLAN IS HOME NO SERVICES S/O TO TRANSPORT PTS S/O IS ALSO REQUESTING A PRESCRIPTION FOR PT TO GET A WALKER OR WALKING BOOT DUE TO HER FOOT ABSCESS
--- NOTE | 2021-08-22 12:40 | PC.NURSE ---
insulin held due to late lunch.
[2021-08-22] MEDS: Lactated Ringers 1,000 ML 80 ML IVCONT ×2 (12:56→21:19)
--- NOTE | 2021-08-22 12:58 | PC.NURSE ---
RN-RN report sent via [employer] text per S3 request.
[2021-08-22 14:03] LABS: Glucose, Whole Blood 367 mg/dL (60-115)
[2021-08-22] MEDS: lisinopriL 10 MG TABLET PO (14:19)
[2021-08-22 16:13] LABS: Glucose, Whole Blood 410 mg/dL (60-115)
[2021-08-22] MEDS: glipiZIDE 10 MG TABLET PO (17:00)
[2021-08-22] MEDS: Insulin Lispro 100 UNIT/ML 3 ML VIAL 15 UNIT SUBCUT (17:00)
[2021-08-22 19:31] LABS: Glucose, Whole Blood 322 mg/dL (60-115)
[2021-08-22 20:45] LABS: Vancomycin Trough 8.4 mcg/mL (10.0-20.0)
[2021-08-22] MEDS: Gabapentin 300 MG CAPSULE 600 MG PO (21:17)
[2021-08-22] MEDS: Montelukast Sodium 10 MG TABLET PO (21:18)
[2021-08-22] MEDS: Docusate Sodium 100 MG CAPSULE PO (21:18)
[2021-08-22] MEDS: vancomycin HCL 1,250 MG in 0.9 % Sodium Chloride 250 ML 166.67 MG IV (21:19)
[2021-08-23] VITALS (14 sets, daily range): BP systolic 164–190; BP diastolic 73–89; PULSE 95–118; RESP 16–22; TEMP 36.5–36.9; O2SAT 92–99
[2021-08-23] MEDS: Albuterol/Iprat 2.5/0.5MG 3 ML AMPUL.NEB INHALE ×6 (00:07→23:29)
[2021-08-23 06:10] LABS: Hematocrit 31.1 % (37.0-47.0); Hemoglobin 9.2 g/dl (12.0-16.0); Mean Corpuscular HGB Conc 29.6 g/dl (31.0-35.0); Mean Corpuscular Hemoglobin 24.5 pg (27.0-33.0); Mean Corpuscular Volume 82.7 fL (80.0-98.0); Mean Platelet Volume 11.5 fL (9.4-12.3); Platelet Count 253 X10*3/uL (160-400); Red Blood Count 3.76 X10*6/uL (4.20-5.50); Red Cell Distribution Width 16.3 % (11.0-16.0); White Blood Count 8.4 X10*3/uL (4.8-10.8)
[2021-08-23 06:29] LABS: Anion Gap 11 (12-20); Blood Urea Nitrogen 15 mg/dL (9-16); Calcium 8.3 mg/dL (8.4-10.2); Carbon Dioxide 27 mmol/L (22-29); Chloride 102 mmol/L (96-108); Estimated Glomerular Filt Rate > 60; Glucose Random 306 mg/dL (60-115); Sodium 136 mmol/L (135-145)
--- NOTE | 2021-08-23 07:10 | HE.PHANOTE ---
RE Vanco SCR today was 0.80. continue 1250 q12h, next trough 08/24@0800
[2021-08-23 07:30] LABS: Glucose, Whole Blood 297 mg/dL (60-115)
--- NOTE | 2021-08-23 07:32 | HO.PM.IMPN ---
Subjective Subjective Date of Service: 08/24/21 Interval History: dm foot infection/acute osteomyelitis,dm uncontrolled Review of Systems Patient denies any chest pain shortness of breath abdominal pain or fever chills or cough or phlegm. Still has the foot open area between 1st and 2nd finger, mild drainage. Foot and leg erythema seems to be improving Physical Exam Vital Signs: Vital Signs: Last Vital Signs Temp 97.7 F 08/23/21 04:00 Pulse 107 H 08/23/21 04:34 Resp 20 08/23/21 04:34 BP 164/79 H 08/23/21 04:00 Pulse Ox 95 08/23/21 04:00 BMI result Body Mass Index 26.6 Appearance: Alert.? Oriented X3.? not in distress.? Eyes: Pupils equal, round and reactive to light.? Sclera nonicteric.? ENT: Pharynx normal.? Moist mucous membranes. cvs: rrr, [id number] . res: clear to auscultation ,no rhonchii or wheezing abd: no rebound or guarding ,nt, bs present. ext pulses present , no cyanosis - left foot :sill has discharge? between 1st and 2nd toes , erythema lower leg up (just below knee). Neuro:? Alert oriented x3 ,no nonfocal Objective Data Active Medications Albuterol/Ipratropium (Albuterol/Iprat 2.5/0.5mg 3 Ml Ampul.Neb) 3 ml INHALE RQ4H [facility], [facility] Last Admin: 08/23/21 04:32 Dose: 3 ml Documented by: SKYE Amlodipine Besylate (Amlodipine Besylate 10 Mg Tablet) 10 mg PO DAILY [facility], [facility]; Protocol Last Admin: 08/22/21 08:48 Dose: 10 mg Documented by: SOTERO Aspirin (Aspirin Enteric Coated 81 Mg Tablet.) 81 mg PO DAILY [facility] Last Admin: 08/22/21 08:47 Dose: 81 mg Documented by: SOTERO Atorvastatin Calcium (Atorvastatin Calcium 10 Mg Tablet) 10 mg PO DAILY [facility] Last Admin: 08/22/21 08:53 Dose: 10 mg Documented by: SOTERO Clotrimazole (Clotrimazole 1 % Cream 15 Gm Tube) 1 appl TOPICAL BID [facility], [facility]; Protocol Last Admin: 08/22/21 21:18 Dose: 1 appl Documented by: TANA Cyclobenzaprine HCl (Cyclobenzaprine Hcl 10 Mg Tablet) 10 mg PO TID PRN PRN Reason: muscle spasm Last Admin: 08/22/21 14:35 Dose: 10 mg Documented by: SKY Dextrose (Dextrose 50 % 25 Gm/50 Ml Vial) 25 gm IVPUSH Q15M PRN; Protocol PRN Reason: per Hypoglycemia Standing Ord. Docusate Sodium (Docusate Sodium 100 Mg Capsule) 100 mg PO BEDTIME [facility] Last Admin: 08/22/21 21:18 Dose: 100 mg Documented by: TANA Enoxaparin Sodium (Enoxaparin Sodium 40 Mg/0.4 Ml Syringe) 40 mg SUBCUT Q24H [facility] Last Admin: 08/22/21 10:25 Dose: 40 mg Documented by: SOTERO Fluticasone/Vilanterol (Fluticasone/Vilanterol 100/25 Blst.W.Dev) 1 puff INHALE DAILY [facility] Last Admin: 08/22/21 07:56 Dose: Not Given Documented by: EMILIE Non-Admin Reason: Med Not Available Gabapentin (Gabapentin 100 Mg Capsule) 100 mg PO TID [facility] Last Admin: 08/22/21 21:18 Dose: 100 mg Documented by: TANA Gabapentin (Gabapentin 300 Mg Capsule) 600 mg PO BEDTIME [facility] Last Admin: 08/22/21 21:17 Dose: 600 mg Documented by: TANA Glipizide (Glipizide 10 Mg Tablet) 10 mg PO BIDWM [facility]1983 Last Admin: 08/22/21 17:00 Dose: 10 mg Documented by: SKY Glucose (Glucose Gel 15 Gm Gel..Gram.) 15 gm PO Q15M PRN; Protocol PRN Reason: per Hypoglycemia Standing Ord. Hydralazine HCl (Hydralazine Hcl 50 Mg Tablet) 50 mg PO TID [facility]; Protocol Last Admin: 08/22/21 21:18 Dose: 50 mg Documented by: TANA Piperacillin Sod/Tazobactam (Sod 3.375 gm/ Sodium Chloride) 100 mls @ 100 mls/hr IV Q6H [facility] Last Admin: 08/23/21 05:55 Dose: 100 mls/hr Documented by: TANA Lactated Ringer's (Lr) 1,000 mls @ 80 mls/hr IVCONT .[id number] [facility] Last Admin: 08/22/21 21:19 Dose: 80 mls/hr Documented by: TANA Vancomycin HCl 1,250 mg/ (Sodium Chloride) 250 mls @ 166.667 mls/hr IV Q12H [facility]1983 Last Infusion: 08/22/21 23:52 Dose: 0 mls/hr Documented by: TANA Insulin Human Lispro (Insulin Lispro 100 Unit/Ml 3 Ml Vial) 0 unit SUBCUT QIDACHS [facility], [facility]; Protocol Last Admin: 08/22/21 21:17 Dose: 12 unit Documented by: TANA Lidocaine (Lidocaine 4 % Patch Adh..Patch) 1 patch TRANSDERMA DAILY [facility] Last Admin: 08/22/21 08:46 Dose: 1 patch Documented by: SOTERO Lisinopril (Lisinopril 10 Mg Tablet) 10 mg PO DAILY [facility]; Protocol Last Admin: 08/22/21 14:19 Dose: 10 mg Documented by: SKY Montelukast Sodium (Montelukast Sodium 10 Mg Tablet) 10 mg PO BEDTIME [facility] Last Admin: 08/22/21 21:18 Dose: 10 mg Documented by: TANA Nicotine (Nicotine 21 Mg Patch.Td24) 21 mg TRANSDERMA DAILY [facility] Last Admin: 08/22/21 10:25 Dose: 21 mg Documented by: SOTERO Nystatin (Nystatin Oral Susp 500,000 Unit/5 Ml Oral.Susp) 400,000 unit PO QID [facility], [facility]; Protocol Last Admin: 08/22/21 21:16 Dose: 400,000 unit Documented by: TANA Oxycodone HCl (Oxycodone Hcl Immed Release 5 Mg Tablet) 5 mg PO Q4H PRN PRN Reason: Pain, Mild (Pain Scale 1-3) Last Admin: 08/22/21 23:51 Dose: 5 mg Documented by: TANA Pharmacy Consult (Consult Rx Perform Med Rec) 1 each MISCELLANE ONCE PRN PRN Reason: Consult order Pharmacy Consult (Consult Rx Vancomycin Dosing) 1 each MISCELLANE DAILY PRN PRN Reason: Consult order Pharmacy Consult (Consult Rx Vancomycin Dosing) 1 each MISCELLANE DAILY PRN PRN Reason: Consult order Polyethylene Glycol (Polyethylene Glycol 3350 17 Gm Powd.Pack) 17 gm PO DAILY [facility] Last Admin: 08/22/21 08:57 Dose: Not Given Documented by: SOTERO Non-Admin Reason: Patient Refused Prednisone (Prednisone 20 Mg Tablet) 40 mg PO DAILY [facility] Last Admin: 08/22/21 08:45 Dose: 40 mg Documented by: SOTERO Sodium Chloride (0.9 % Sodium Chloride Flush 3 Ml Syringe) 3 ml IVFLUSH QSHIFT [facility] Last Admin: 08/22/21 23:51 Dose: 3 ml Documented by: TANA Tiotropium [place] (Tiotropium [place] 18 Mcg Cap.W.Dev) 1 puff INHALE RDAILY [facility] Last Admin: 08/22/21 07:56 Dose: Not Given Documented by: EMILIE Non-Admin Reason: Med Not Available Labs CBC & Chem 7: 08/24/21 02:59 08/24/21 02:59 Labs: Laboratory Results - last 24 hr 08/22/21 08/22/21 08/22/21 07:01 07:01 13:56 MCV MCH MCHC RDW Plt Count MPV Absolute Nucleated RBC Nucleated RBC % (auto) PT INR Anion Gap 15 Estim Creat Clear Calc 73.4 Estimated GFR > 60 POC Glucose 367 H* Random Glucose Fasting Glucose 406 H* Estimat Average Glucose 249 Hemoglobin A1c % 10.3 Calcium 8.7 Vancomycin Trough 08/22/21 08/22/21 08/22/21 15:42 18:53 20:15 MCV MCH MCHC RDW Plt Count MPV Absolute Nucleated RBC Nucleated RBC % (auto) PT INR Anion Gap Estim Creat Clear Calc Estimated GFR POC Glucose 410 H* 322 H Random Glucose Fasting Glucose Estimat Average Glucose Hemoglobin A1c % Calcium Vancomycin Trough 8.4 L 08/23/21 08/23/21 08/23/21 05:56 05:56 05:56 MCV 82.7 MCH 24.5 L MCHC 29.6 L RDW 16.3 H Plt Count 253 MPV 11.5 Absolute Nucleated RBC 0.000 Nucleated RBC % (auto) 0.0 PT 11.0 INR 1.0 Anion Gap 11 L Estim Creat Clear Calc 78.0 Estimated GFR > 60 POC Glucose Random Glucose 306 H Fasting Glucose Estimat Average Glucose Hemoglobin A1c % Calcium 8.3 L Vancomycin Trough 08/23/21 07:25 MCV MCH MCHC RDW Plt Count MPV Absolute Nucleated RBC Nucleated RBC % (auto) PT INR Anion Gap Estim Creat Clear Calc Estimated GFR POC Glucose 297 H Random Glucose Fasting Glucose Estimat Average Glucose Hemoglobin A1c % Calcium Vancomycin Trough Microbiology Microbiology Results: Microbiology 08/21/21 06:50 Blood Culture - Preliminary Blood - Venous No growth after 24 hours. 08/21/21 06:50 Blood Culture - Preliminary Blood - Venous No growth after 24 hours. Assessment and Plan (1) COPD exacerbation: Status: Acute (2) Cellulitis: Status: Acute (3) Hyperglycemia: Status: Acute (4) Cellulitis: Status: Acute Plan 51-year-old female with diabetic foot infection/osteomyelitis. 1.copd excerebation seems improve d Continue nebs, switch to steroids, oxygen support. 2. sepsis /diabetic foot infection/osteomyelitis.? ,possible foot abcess Blood culture neg @24 hrs Mild lactic acidosis ESR [address] shows suspicion of possible osteomyelitis, also possible is foot abscess, mri :osteomyelitis of the second proximal phalanx and the second metatarsal head and neck,also showed abcess Vanco trough was 8.4 yesterday, Patient has mild foot drainage per improving cellulitis area is also improving, Id eval pending: Recommended to switch to IV daptomycin since it can be given once daily-VNA is in the process of getting arranged, also PICC line added. surgery followin-continue current IV antibiotic as above. 3. Diabetes:uncontrolled -due to foot infcetion, steriods switched to po steriods Hold or oral hypoglycemic Fingersticks with adjusted coverage, adjusted glipizide hba1c 10 may need lantus 4. Hypertension:?uncontrolled Continue amlodipine,adjusted hydralazine , hold lisinopril/hydrochlorothiazide. added lisinopril . 5. Possible peripheral neuropathy? possibly related to diabetes Continue home gabapentin 6. Active smoker: Nicotine patch DVT prophylaxis with subQ Lovenox patient is inpatient-iv antibiotics: IV Deptomycin was recommended since the once daily dosing, PICC line added, [facility]NA needs to be arranged for home delivery of IV antibiotics. Above was discussed with the patient in detail length she understand and in agreement with the above plan. Quality Stroke Does the patient have a stroke diagnosis?: No VTE Prior VTE?: No VTE Risk Level:: Medical - moderate - high VTE Device Contraindication: N/A - Device Ordered VTE Drug Contraindication: N/A - Med Ordered
[2021-08-23] MEDS: oxyCODONE HCl Immed Release 5 MG TABLET PO ×3 (08:07→22:50)
[2021-08-23] MEDS: Aspirin Enteric Coated 81 MG TABLET.DR PO (08:08)
[2021-08-23] MEDS: predniSONE 20 MG TABLET 40 MG PO (08:08)
[2021-08-23] MEDS: Gabapentin 100 MG CAPSULE PO ×3 (08:09→20:55)
[2021-08-23] MEDS: hydrALAZINE HCl 50 MG TABLET PO ×3 (08:09→20:55)
[2021-08-23] MEDS: Atorvastatin Calcium 10 MG TABLET PO (08:09)
[2021-08-23] MEDS: lisinopriL 10 MG TABLET PO (08:10)
[2021-08-23] MEDS: glipiZIDE 10 MG TABLET PO ×2 (08:10→17:15)
[2021-08-23] MEDS: amLODIPine Besylate 10 MG TABLET PO (08:10)
[2021-08-23] MEDS: Nystatin Oral Susp 500,000 UNIT/5 ML ORAL.SUSP 400000 UNIT PO ×4 (08:11→20:56)
[2021-08-23] MEDS: Insulin Lispro 100 UNIT/ML 3 ML VIAL SUBCUT ×5 (08:12→20:56)
[2021-08-23] MEDS: polyethylene glycoL 3350 17 GM POWD.PACK PO (08:13)
[2021-08-23] MEDS: Nicotine 21 MG PATCH.TD24 TRANSDERMA (08:14)
[2021-08-23] MEDS: Fluticasone/Vilanterol 100/25 BLST.W.DEV 1 PUFF INHALE (08:28)
[2021-08-23] MEDS: vancomycin HCL 1,250 MG in 0.9 % Sodium Chloride 250 ML 166.67 MG IV (11:14)
[2021-08-23] MEDS: Lactated Ringers 1,000 ML 80 ML IVCONT ×2 (11:19→20:52)
[2021-08-23 11:36] LABS: Glucose, Whole Blood 288 mg/dL (60-115)
--- NOTE | 2021-08-23 11:58 | P.CDIC_ITS ---
CDI Concurrent Query Documentation Clarification: PHYSICIAN'S DOCUMENTATION REQUEST Date of Query: 08/23/21 1158 Patient Name: Keisha Chadwick Admit Date: 08/21/21 Dear Doctor, A review of the medical record indicates additional documentation may be needed. Please review below and update the documentation accordingly. Clinical Indicators: Documentation on [insert date] indicates Osteomyelitis. Risk Factors/Clinical Indicators/Treatments Per MD progress note 08/23/21: diabetic foot infection/osteomyelitis. MRI pending Based on the above, please clarify in the Progress Notes further specificity regarding the type of Osteomyelitis. Also include specific site with laterality and known or suspected infectious agent: * Acute osteomyelitis * Subacute osteomyelitis * Chronic osteomyelitisis * Other (please specify) * Unable to determine Use of terms such as suspected, likely, concern for, or probable (associated with a specific diagnosis that is being evaluated, monitored, or treated as if it exists) are acceptable and can be coded in the inpatient setting, when documented at the time of discharge. Thank you, Shu Rosario RN Extension: [phone] Please use your independent medical judgment in providing your response. THIS QUERY IS PART OF THE PERMANENT MEDICAL RECORD Provider Response: Other Other Diagnosis: acute osteomyelitis
[2021-08-23] MEDS: Enoxaparin Sodium 40 MG/0.4 ML SYRINGE SUBCUT (12:21)
--- NOTE | 2021-08-23 13:09 | W.PM.IDCN ---
History of Present Illness Data of Consult Service Date: 08/23/21 Requesting physician: Rose Helm Primary Care Provider: MITZI Barillas Reason for consult: left foot erythema She presents with left foot pain and swelling and itchiness. Last year she stepped on nail in her tenement and has had redness since off and on. 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 She has MRI left second proximal phalanx osteomyelitis. She has no cultures positive. Review of Systems Review of Systems: Yes all other systems are reviewed and are negative [facility] Past Medical History Medical History Asthma COPD (chronic obstructive pulmonary disease) Diabetes Heart problem Hypertension Surgical History Surgical History No pertinent past surgical history Social History Social History Household Members: Family Housing: Apartment Do you presently have visiting nurse or other home services: No Alcohol intake: unknown Patient Tobacco Use Status: Current everyday Tobacco user Tobacco use type: Cigarette e-Cigarette/Vaping Use: Never Used Second Hand Smoke Exposure: Yes service: No Current occupational status: unemployed Meds Allergies Allergy/AdvReac Type Severity Reaction Status Date / Time Penicillins [PENICILLINS] Allergy Severe RASH Verified 02/07/21 06:17 amoxicillin [AMOXICILLIN] Allergy Intermediate HIVES Verified 02/07/21 06:17 Active Medications: Current Medications Albuterol/Ipratropium (Albuterol/Iprat 2.5/0.5mg 3 Ml Ampul.Neb) 3 ml INHALE RQ4H [facility] Last Admin: 08/23/21 12:18 Dose: 3 ml Documented by: Amlodipine Besylate (Amlodipine Besylate 10 Mg Tablet) 10 mg PO DAILY [facility]; Protocol Last Admin: 08/23/21 08:10 Dose: 10 mg Documented by: Aspirin (Aspirin Enteric Coated 81 Mg Tablet.) 81 mg PO DAILY [facility] Last Admin: 08/23/21 08:08 Dose: 81 mg Documented by: Atorvastatin Calcium (Atorvastatin Calcium 10 Mg Tablet) 10 mg PO DAILY [facility] Last Admin: 08/23/21 08:09 Dose: 10 mg Documented by: Clotrimazole (Clotrimazole 1 % Cream 15 Gm Tube) 1 appl TOPICAL BID [facility]; Protocol Last Admin: 08/23/21 08:20 Dose: Not Given Documented by: Cyclobenzaprine HCl (Cyclobenzaprine Hcl 10 Mg Tablet) 10 mg PO TID PRN PRN Reason: muscle spasm Last Admin: 08/22/21 14:35 Dose: 10 mg Documented by: Dextrose (Dextrose 50 % 25 Gm/50 Ml Vial) 25 gm IVPUSH Q15M PRN; Protocol PRN Reason: per Hypoglycemia Standing Ord. Docusate Sodium (Docusate Sodium 100 Mg Capsule) 100 mg PO BEDTIME [facility] Last Admin: 08/22/21 21:18 Dose: 100 mg Documented by: Enoxaparin Sodium (Enoxaparin Sodium 40 Mg/0.4 Ml Syringe) 40 mg SUBCUT Q24H [facility] Last Admin: 08/23/21 12:21 Dose: 40 mg Documented by: Fluticasone/Vilanterol (Fluticasone/Vilanterol 100/25 Blst.W.Dev) 1 puff INHALE DAILY [facility] Last Admin: 08/23/21 08:28 Dose: 1 puff Documented by: Gabapentin (Gabapentin 100 Mg Capsule) 100 mg PO TID [facility] Last Admin: 08/23/21 08:09 Dose: 100 mg Documented by: Gabapentin (Gabapentin 300 Mg Capsule) 600 mg PO BEDTIME [facility] Last Admin: 08/22/21 21:17 Dose: 600 mg Documented by: Glipizide (Glipizide 10 Mg Tablet) 10 mg PO BIDWM [facility] Last Admin: 08/23/21 08:10 Dose: 10 mg Documented by: Glucose (Glucose Gel 15 Gm Gel..Gram.) 15 gm PO Q15M PRN; Protocol PRN Reason: per Hypoglycemia Standing Ord. Hydralazine HCl (Hydralazine Hcl 50 Mg Tablet) 50 mg PO TID [facility]; Protocol Last Admin: 08/23/21 08:09 Dose: 50 mg Documented by: Piperacillin Sod/Tazobactam (Sod 3.375 gm/ Sodium Chloride) 100 mls @ 100 mls/hr IV Q6H [facility] Last Admin: 08/23/21 12:22 Dose: 100 mls/hr Documented by: Lactated Ringer's (Lr) 1,000 mls @ 80 mls/hr IVCONT .[id number] [facility] Last Admin: 08/23/21 11:19 Dose: 80 mls/hr Documented by: Vancomycin HCl 1,250 mg/ (Sodium Chloride) 250 mls @ 166.667 mls/hr IV Q12H [facility] Last Admin: 08/23/21 11:14 Dose: 166.67 mls/hr Documented by: Insulin Human Lispro (Insulin Lispro 100 Unit/Ml 3 Ml Vial) 0 unit SUBCUT QIDACHS [facility]; Protocol Last Admin: 08/23/21 12:22 Dose: 8 unit Documented by: Lidocaine (Lidocaine 4 % Patch Adh..Patch) 1 patch TRANSDERMA DAILY [facility] Last Admin: 08/23/21 08:21 Dose: Not Given Documented by: Lisinopril (Lisinopril 10 Mg Tablet) 10 mg PO DAILY [facility]; Protocol Last Admin: 08/23/21 08:10 Dose: 10 mg Documented by: Montelukast Sodium (Montelukast Sodium 10 Mg Tablet) 10 mg PO BEDTIME [facility] Last Admin: 08/22/21 21:18 Dose: 10 mg Documented by: Nicotine (Nicotine 21 Mg Patch.Td24) 21 mg TRANSDERMA DAILY [facility] Last Admin: 08/23/21 08:14 Dose: 21 mg Documented by: Nystatin (Nystatin Oral Susp 500,000 Unit/5 Ml Oral.Susp) 400,000 unit PO QID [facility]; Protocol Last Admin: 08/23/21 12:19 Dose: 400,000 unit Documented by: Oxycodone HCl (Oxycodone Hcl Immed Release 5 Mg Tablet) 5 mg PO Q4H PRN PRN Reason: Pain, Mild (Pain Scale 1-3) Last Admin: 08/23/21 08:07 Dose: 5 mg Documented by: Pharmacy Consult (Consult Rx Perform Med Rec) 1 each MISCELLANE ONCE PRN PRN Reason: Consult order Pharmacy Consult (Consult Rx Vancomycin Dosing) 1 each MISCELLANE DAILY PRN PRN Reason: Consult order Pharmacy Consult (Consult Rx Vancomycin Dosing) 1 each MISCELLANE DAILY PRN PRN Reason: Consult order Polyethylene Glycol (Polyethylene Glycol 3350 17 Gm Powd.Pack) 17 gm PO DAILY [facility] Last Admin: 08/23/21 08:13 Dose: 17 gm Documented by: Prednisone (Prednisone 20 Mg Tablet) 40 mg PO DAILY [facility] Last Admin: 08/23/21 08:08 Dose: 40 mg Documented by: Sodium Chloride (0.9 % Sodium Chloride Flush 3 Ml Syringe) 3 ml IVFLUSH QSHIFT [facility] Last Admin: 08/23/21 08:20 Dose: Not Given Documented by: Tiotropium [place] (Tiotropium [place] 18 Mcg Cap.W.Dev) 1 puff INHALE RDAILY [facility] Last Admin: 08/23/21 08:29 Dose: 1 puff Documented by: Home Medications Medication Instructions Recorded Confirmed Last Taken Type albuterol sulfate 90 mcg/actuation 2 puff PO Q4H PRN 12/24/20 08/21/21 07/10/21 21:00 History aerosol inhaler (ProAir HFA) aspirin 81 mg tablet,delayed 1 tab PO DAILY 12/24/20 08/21/21 07/10/21 11:00 History release atorvastatin 10 mg tablet 1 tab PO DAILY 12/24/20 08/21/21 07/09/21 21:00 History fluticasone propionate 115 2 puff INHALATION BID 12/24/20 08/21/21 07/10/21 11:00 History mcg-salmeterol 21 mcg/actuation HFA inhaler (Advair HFA) gabapentin 300 mg capsule 2 cap PO BEDTIME 12/24/20 08/21/21 07/10/21 21:00 History glipizide 5 mg-metformin 500 mg 2 tab PO BIDWM 12/24/20 08/21/21 07/10/21 11:00 History tablet montelukast 10 mg tablet 1 tab PO QPM 12/24/20 08/21/21 07/09/21 11:00 History umeclidinium 62.5 mcg/actuation 1 puff PO DAILY 12/24/20 08/21/21 07/10/21 11:00 History blister powder for inhalation (Incruse Ellipta) albuterol sulfate 2.5 mg INHALATION Q4H PRN 07/11/21 08/21/21 Unknown History lisinopril 20 1 tab PO DAILY 07/11/21 08/21/21 Unknown History mg-hydrochlorothiazide 12.5 mg tablet Physical Exam Vital Signs: Vital Signs: Last Vital Signs Temp 98.2 F 08/23/21 11:39 Pulse 104 H 08/23/21 12:19 Resp 18 08/23/21 12:19 BP 173/83 H 08/23/21 11:39 Pulse Ox 95 08/23/21 11:39 BMI result Body Mass Index 26.6 Const: General: cooperative HENMT: Head: Yes normal to inspection Mouth: Normal oral and palatal mucosa present Resp: Effort & Inspection: normal respiratory effort Cardio: Rate: regular rate Rhythm: regular rhythm GI: Palpation (GI): Soft to palpation and nontender Extrem: Other: redness left foot across all area Results Labs CBC & Chem 7: 08/23/21 05:56 08/23/21 05:56 Labs: Short CBC 08/23/21 Range/Units 05:56 WBC 8.4 (4.8-10.8) X10*3/uL Hgb 9.2 L (12.0-16.0) g/dl Hct 31.1 L (37.0-47.0) % Plt Count 253 (160-400) X10*3/uL BMP 08/23/21 05:56 Sodium 136 Potassium 4.0 Chloride 102 Carbon Dioxide 27 BUN 15 Creatinine 0.80 Calcium 8.3 L Microbiology Microbiology Results: Microbiology 08/21/21 06:50 Blood - Venous Blood Culture - Preliminary No growth after 48 hours. 08/21/21 06:50 Blood - Venous Blood Culture - Preliminary No growth after 48 hours. Assessment and Plan (1) Osteomyelitis: Status: Acute She has half-way injury to foot and osteomyelitis may likely represent staph or strep. Diabetes is risk factor. Biopsy would be difficult in this area possibly (2) Sepsis: Status: Acute (3) Cellulitis: Status: Acute Plan Would continue Vancomycin for six weeks since Penicillin allergy. Vancomycin trough and creatinine weekly See in office in two weeks.
--- NOTE | 2021-08-23 13:16 | W.PM.IDCN ---
History of Present Illness Data of Consult Primary Care Provider: MITZI Barillas [facility] Past Medical History Medical History Asthma COPD (chronic obstructive pulmonary disease) Diabetes Heart problem Hypertension Surgical History Surgical History No pertinent past surgical history Social History Social History Household Members: Family Housing: Apartment Do you presently have visiting nurse or other home services: No Alcohol intake: unknown Patient Tobacco Use Status: Current everyday Tobacco user Tobacco use type: Cigarette e-Cigarette/Vaping Use: Never Used Second Hand Smoke Exposure: Yes service: No Current occupational status: unemployed Meds Allergies Allergy/AdvReac Type Severity Reaction Status Date / Time Penicillins [PENICILLINS] Allergy Severe RASH Verified 02/07/21 06:17 amoxicillin [AMOXICILLIN] Allergy Intermediate HIVES Verified 02/07/21 06:17 Active Medications: Current Medications Albuterol/Ipratropium (Albuterol/Iprat 2.5/0.5mg 3 Ml Ampul.Neb) 3 ml INHALE RQ4H [facility] Last Admin: 08/23/21 12:18 Dose: 3 ml Documented by: Amlodipine Besylate (Amlodipine Besylate 10 Mg Tablet) 10 mg PO DAILY [facility]; Protocol Last Admin: 08/23/21 08:10 Dose: 10 mg Documented by: Aspirin (Aspirin Enteric Coated 81 Mg Tablet.) 81 mg PO DAILY [facility] Last Admin: 08/23/21 08:08 Dose: 81 mg Documented by: Atorvastatin Calcium (Atorvastatin Calcium 10 Mg Tablet) 10 mg PO DAILY [facility] Last Admin: 08/23/21 08:09 Dose: 10 mg Documented by: Clotrimazole (Clotrimazole 1 % Cream 15 Gm Tube) 1 appl TOPICAL BID [facility]; Protocol Last Admin: 08/23/21 08:20 Dose: Not Given Documented by: Cyclobenzaprine HCl (Cyclobenzaprine Hcl 10 Mg Tablet) 10 mg PO TID PRN PRN Reason: muscle spasm Last Admin: 08/22/21 14:35 Dose: 10 mg Documented by: Dextrose (Dextrose 50 % 25 Gm/50 Ml Vial) 25 gm IVPUSH Q15M PRN; Protocol PRN Reason: per Hypoglycemia Standing Ord. Docusate Sodium (Docusate Sodium 100 Mg Capsule) 100 mg PO BEDTIME [facility] Last Admin: 08/22/21 21:18 Dose: 100 mg Documented by: Enoxaparin Sodium (Enoxaparin Sodium 40 Mg/0.4 Ml Syringe) 40 mg SUBCUT Q24H [facility] Last Admin: 08/23/21 12:21 Dose: 40 mg Documented by: Fluticasone/Vilanterol (Fluticasone/Vilanterol 100/25 Blst.W.Dev) 1 puff INHALE DAILY [facility] Last Admin: 08/23/21 08:28 Dose: 1 puff Documented by: Gabapentin (Gabapentin 100 Mg Capsule) 100 mg PO TID [facility] Last Admin: 08/23/21 08:09 Dose: 100 mg Documented by: Gabapentin (Gabapentin 300 Mg Capsule) 600 mg PO BEDTIME [facility] Last Admin: 08/22/21 21:17 Dose: 600 mg Documented by: Glipizide (Glipizide 10 Mg Tablet) 10 mg PO BIDWM [facility] Last Admin: 08/23/21 08:10 Dose: 10 mg Documented by: Glucose (Glucose Gel 15 Gm Gel..Gram.) 15 gm PO Q15M PRN; Protocol PRN Reason: per Hypoglycemia Standing Ord. Hydralazine HCl (Hydralazine Hcl 50 Mg Tablet) 50 mg PO TID [facility]; Protocol Last Admin: 08/23/21 08:09 Dose: 50 mg Documented by: Piperacillin Sod/Tazobactam (Sod 3.375 gm/ Sodium Chloride) 100 mls @ 100 mls/hr IV Q6H [facility] Last Admin: 08/23/21 12:22 Dose: 100 mls/hr Documented by: Lactated Ringer's (Lr) 1,000 mls @ 80 mls/hr IVCONT .[id number] [facility] Last Admin: 08/23/21 11:19 Dose: 80 mls/hr Documented by: Vancomycin HCl 1,250 mg/ (Sodium Chloride) 250 mls @ 166.667 mls/hr IV Q12H [facility] Last Admin: 08/23/21 11:14 Dose: 166.67 mls/hr Documented by: Insulin Human Lispro (Insulin Lispro 100 Unit/Ml 3 Ml Vial) 0 unit SUBCUT QIDACHS [facility]; Protocol Last Admin: 08/23/21 12:22 Dose: 8 unit Documented by: Lidocaine (Lidocaine 4 % Patch Adh..Patch) 1 patch TRANSDERMA DAILY [facility] Last Admin: 08/23/21 08:21 Dose: Not Given Documented by: Lisinopril (Lisinopril 10 Mg Tablet) 10 mg PO DAILY [facility]; Protocol Last Admin: 08/23/21 08:10 Dose: 10 mg Documented by: Montelukast Sodium (Montelukast Sodium 10 Mg Tablet) 10 mg PO BEDTIME [facility] Last Admin: 08/22/21 21:18 Dose: 10 mg Documented by: Nicotine (Nicotine 21 Mg Patch.Td24) 21 mg TRANSDERMA DAILY [facility] Last Admin: 08/23/21 08:14 Dose: 21 mg Documented by: Nystatin (Nystatin Oral Susp 500,000 Unit/5 Ml Oral.Susp) 400,000 unit PO QID [facility]; Protocol Last Admin: 08/23/21 12:19 Dose: 400,000 unit Documented by: Oxycodone HCl (Oxycodone Hcl Immed Release 5 Mg Tablet) 5 mg PO Q4H PRN PRN Reason: Pain, Mild (Pain Scale 1-3) Last Admin: 08/23/21 08:07 Dose: 5 mg Documented by: Pharmacy Consult (Consult Rx Perform Med Rec) 1 each MISCELLANE ONCE PRN PRN Reason: Consult order Pharmacy Consult (Consult Rx Vancomycin Dosing) 1 each MISCELLANE DAILY PRN PRN Reason: Consult order Pharmacy Consult (Consult Rx Vancomycin Dosing) 1 each MISCELLANE DAILY PRN PRN Reason: Consult order Polyethylene Glycol (Polyethylene Glycol 3350 17 Gm Powd.Pack) 17 gm PO DAILY [facility] Last Admin: 08/23/21 08:13 Dose: 17 gm Documented by: Prednisone (Prednisone 20 Mg Tablet) 40 mg PO DAILY [facility] Last Admin: 08/23/21 08:08 Dose: 40 mg Documented by: Sodium Chloride (0.9 % Sodium Chloride Flush 3 Ml Syringe) 3 ml IVFLUSH QSHIFT [facility] Last Admin: 08/23/21 08:20 Dose: Not Given Documented by: Tiotropium [place] (Tiotropium [place] 18 Mcg Cap.W.Dev) 1 puff INHALE RDAILY [facility] Last Admin: 08/23/21 08:29 Dose: 1 puff Documented by: Home Medications Medication Instructions Recorded Confirmed Last Taken Type albuterol sulfate 90 mcg/actuation 2 puff PO Q4H PRN 12/24/20 08/21/21 07/10/21 21:00 History aerosol inhaler (ProAir HFA) aspirin 81 mg tablet,delayed 1 tab PO DAILY 12/24/20 08/21/21 07/10/21 11:00 History release atorvastatin 10 mg tablet 1 tab PO DAILY 12/24/20 08/21/21 07/09/21 21:00 History fluticasone propionate 115 2 puff INHALATION BID 12/24/20 08/21/21 07/10/21 11:00 History mcg-salmeterol 21 mcg/actuation HFA inhaler (Advair HFA) gabapentin 300 mg capsule 2 cap PO BEDTIME 12/24/20 08/21/21 07/10/21 21:00 History glipizide 5 mg-metformin 500 mg 2 tab PO BIDWM 12/24/20 08/21/21 07/10/21 11:00 History tablet montelukast 10 mg tablet 1 tab PO QPM 12/24/20 08/21/21 07/09/21 11:00 History umeclidinium 62.5 mcg/actuation 1 puff PO DAILY 12/24/20 08/21/21 07/10/21 11:00 History blister powder for inhalation (Incruse Ellipta) albuterol sulfate 2.5 mg INHALATION Q4H PRN 07/11/21 08/21/21 Unknown History lisinopril 20 1 tab PO DAILY 07/11/21 08/21/21 Unknown History mg-hydrochlorothiazide 12.5 mg tablet Physical Exam Vital Signs: Vital Signs: Last Vital Signs Temp 98.2 F 08/23/21 11:39 Pulse 104 H 08/23/21 12:19 Resp 18 08/23/21 12:19 BP 173/83 H 08/23/21 11:39 Pulse Ox 95 08/23/21 11:39 BMI result Body Mass Index 26.6 Results Labs CBC & Chem 7: 08/23/21 05:56 08/23/21 05:56 Labs: Short CBC 08/23/21 Range/Units 05:56 WBC 8.4 (4.8-10.8) X10*3/uL Hgb 9.2 L (12.0-16.0) g/dl Hct 31.1 L (37.0-47.0) % Plt Count 253 (160-400) X10*3/uL BMP 08/23/21 05:56 Sodium 136 Potassium 4.0 Chloride 102 Carbon Dioxide 27 BUN 15 Creatinine 0.80 Calcium 8.3 L Microbiology Microbiology Results: Microbiology 08/21/21 06:50 Blood - Venous Blood Culture - Preliminary No growth after 48 hours. 08/21/21 06:50 Blood - Venous Blood Culture - Preliminary No growth after 48 hours.
--- NOTE | 2021-08-23 14:27 | PC.NURSE ---
Patient is aggitated, wants to know her plan for her toe, whether they plan to amputate or not. Noncompliant with diet. Refusing heart monitor.
--- NOTE | 2021-08-23 14:38 | PC.NURSE ---
Patient states MD removed dressing mid morning and is refusing reapplication of dressing. Patient states she does not want next MD to take it off again after i reapply it. She states the surgeon has not seen her today.
--- NOTE | 2021-08-23 16:12 | HO.PICC ---
PICC Line Insertion NPICC Diagnosis: [Left foot Osteomyelitis] Indication: [longterm antibiotics needed] Pertinent Labs: [Reviewed] Technique: Following informed consent including risks, benefits and alternatives and using sterile technique including cap and mask, sterile gown, glove and drape, the [right] arm was prepped and draped in the usual sterile fashion of full barrier technique with CHG. Following completion of Rosalie Protocol the skin and soft tissues were anesthetized with 1% Lidocaine plain. Using ultrasound guidance, [right basilic] vein access was obtained on first attempt. Over an 0.018 wire through peel-away sheath, a [5 FR double lumen] PICC line was positioned. Catheter length is [37 CM] internal length, [2 CM] external length, for a total trimmed length of [39 CM]. The procedure was performed in [S272]. Tip verification was performed by Leroy Moody with Sherlock 3CG. Tip located in SVC. Ultrasound was used to document vein patency and for needle entry. A formal ultrasound picture and cardiac rhythm strip was recorded. Vascular Remote Control Mirror Installer has released the line for use and it is currently dressed with a StatLock, Tegaderm, and CHG disc. Verification has been performed for blood return and line patency. Arm Circumference: [30.5 CM] Equipment: [Alorum Power PICC Solo] Catheter Type: [5FR Double Lumen PICC] Lot #: [[id number]]
--- NOTE | 2021-08-23 16:30 | MHC.CM.PN ---
PLAN IS 4-6 WEEKS OF IV DAPTO (600 MG) QD. [facility] IS OFFERING. 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 PCP IS ON [facility]
[2021-08-23 16:40] LABS: Glucose, Whole Blood 575 mg/dL (60-115)
[2021-08-23] MEDS: Insulin Glargine,Hum.rec.anlog 100 UNIT/ML 10 ML VIAL SUBCUT (17:15)
[2021-08-23] MEDS: DAPTOmycin 600 MG in 0.9 % Sodium Chloride 50 ML 101.73 MG IV (17:21)
[2021-08-23] MEDS: 0.9 % Sodium Chloride Flush 3 ML SYRINGE IVFLUSH ×2 (17:22→20:52)
[2021-08-23 20:04] LABS: Glucose, Whole Blood 429 mg/dL (60-115)
[2021-08-23] MEDS: Gabapentin 300 MG CAPSULE 600 MG PO (20:55)
[2021-08-23] MEDS: Cyclobenzaprine HCl 10 MG TABLET PO (20:55)
[2021-08-23] MEDS: Docusate Sodium 100 MG CAPSULE PO (20:55)
[2021-08-23] MEDS: Montelukast Sodium 10 MG TABLET PO (20:55)
[2021-08-23] MEDS: Clotrimazole 1 % Cream 15 GM TUBE 1 APPL TOPICAL (20:56)
[2021-08-23 23:59] LABS: Glucose, Whole Blood 199 mg/dL (60-115)
--- NOTE | 2021-08-24 02:19 | PM.EVENT ---
Event Note Date of Service: 08/24/21 Event Note: NSVT: pt asymptomatic Will check electrolytes Cardiology follow up.
--- NOTE | 2021-08-24 02:21 | ECG_ITS ---
Test Reason : cp Blood Pressure : / mmHG Vent. Rate : 098 BPM Atrial Rate : 098 BPM P-R Int : 156 ms QRS Dur : 080 ms QT Int : 386 ms P-R-T Axes : 071 022 091 degrees QTc Int : 492 ms Normal sinus rhythm Nonspecific T wave abnormality Prolonged QT Abnormal ECG When compared with ECG of 25-DEC-2020 14:10, Nonspecific T wave abnormality now evident in Lateral leads Referred By: Delta Umaña Electronically Signed By:WENDY JIMENES
[2021-08-24 02:44] LABS: Glucose, Whole Blood 177 mg/dL (60-115)
--- NOTE | 2021-08-24 03:02 | MHC.PIE ---
p; [facility] observers noted several vtach on tele starting at 1999. note; pt just fell asleep at that time. i; dr barrios notieid. ekg now, labs now, cardiology consult e; ekg taken, labs drawn. note; according to [facility], pt vtach stopped as soon as pt woken up by staff - made aware. will cont to monitor
[2021-08-24 03:13] LABS: Hematocrit 33.2 % (37.0-47.0); Hemoglobin 9.9 g/dl (12.0-16.0); Mean Corpuscular HGB Conc 29.8 g/dl (31.0-35.0); Mean Corpuscular Hemoglobin 24.3 pg (27.0-33.0); Mean Corpuscular Volume 81.4 fL (80.0-98.0); Mean Platelet Volume 10.7 fL (9.4-12.3); Platelet Count 242 X10*3/uL (160-400); Red Blood Count 4.08 X10*6/uL (4.20-5.50); Red Cell Distribution Width 15.9 % (11.0-16.0); White Blood Count 6.9 X10*3/uL (4.8-10.8)
[2021-08-24 03:24] LABS: Anion Gap 13 (12-20); Blood Urea Nitrogen 15 mg/dL (9-16); Calcium 8.5 mg/dL (8.4-10.2); Carbon Dioxide 28 mmol/L (22-29); Chloride 102 mmol/L (96-108); Creatinine Clr Calc Pharmacy 84.3; Estimated Glomerular Filt Rate > 60; Glucose Random 183 mg/dL (60-115); Magnesium 1.9 mg/dL (1.6-2.6); Potassium 3.5 mmol/L (3.3-5.1); Sodium 139 mmol/L (135-145)
[2021-08-24 04:00] VITALS: BP 186/79; PULSE 103; RESP 19; TEMP 37; O2SAT 96
[2021-08-24] MEDS: oxyCODONE HCl Immed Release 5 MG TABLET PO ×2 (04:15→09:48)
[2021-08-24 04:22] LABS: Glucose, Whole Blood 166 mg/dL (60-115)
[2021-08-24] MEDS: Albuterol/Iprat 2.5/0.5MG 3 ML AMPUL.NEB INHALE ×3 (04:52→11:24)
[2021-08-24 04:53] VITALS: PULSE 103; RESP 16; O2SAT 98
[2021-08-24 06:07] LABS: Glucose, Whole Blood 139 mg/dL (60-115)
[2021-08-24 07:02] VITALS: BP 170/79; PULSE 104; RESP 20; TEMP 36.6; O2SAT 96
[2021-08-24 07:24] LABS: Glucose, Whole Blood 132 mg/dL (60-115)
--- NOTE | 2021-08-24 08:05 | PM.PNGS ---
Subjective Subjective Date of Service: 08/24/21 Interval history: Patient feels improved, denies any new symptoms. Physical Exam Vital Signs: Vital Signs: Last Vital Signs Temp 98 F 08/24/21 07:02 Pulse 104 H 08/24/21 07:02 Resp 20 08/24/21 07:02 BP 170/79 H 08/24/21 07:02 Pulse Ox 96 08/24/21 07:02 BMI result Body Mass Index 26.6 Const: General: comfortable and well developed Nutritional Appearance: well nourished Orientation/consciousness: patient oriented x3 Limitations: no limitations Resp: Effort & Inspection: normal respiratory effort, no audible wheezes, no cough and no respiratory distress Neuro: General: patient oriented x3 Extrem: Other: left foot dressing change. Small amount of discharge noted from webspace of great toe and 2nd toe. No erythema noted in foot. Continued edema in [place]. Objective Data Active Medications Albuterol/Ipratropium (Albuterol/Iprat 2.5/0.5mg 3 Ml Ampul.Neb) 3 ml INHALE RQ4H [facility] Last Admin: 08/24/21 04:52 Dose: 3 ml Documented by: SANIYA Amlodipine Besylate (Amlodipine Besylate 10 Mg Tablet) 10 mg PO DAILY [facility]; Protocol Last Admin: 08/23/21 08:10 Dose: 10 mg Documented by: FOZIA Aspirin (Aspirin Enteric Coated 81 Mg Tablet.) 81 mg PO DAILY [facility] Last Admin: 08/23/21 08:08 Dose: 81 mg Documented by: FOZIA Atorvastatin Calcium (Atorvastatin Calcium 10 Mg Tablet) 10 mg PO DAILY [facility] Last Admin: 08/23/21 08:09 Dose: 10 mg Documented by: FOZIA Clotrimazole (Clotrimazole 1 % Cream 15 Gm Tube) 1 appl TOPICAL BID [facility]; Protocol Last Admin: 08/23/21 20:56 Dose: 1 appl Documented by: CHERY Cyclobenzaprine HCl (Cyclobenzaprine Hcl 10 Mg Tablet) 10 mg PO TID PRN PRN Reason: muscle spasm Last Admin: 08/23/21 20:55 Dose: 10 mg Documented by: CHERY Dextrose (Dextrose 50 % 25 Gm/50 Ml Vial) 25 gm IVPUSH Q15M PRN; Protocol PRN Reason: per Hypoglycemia Standing Ord. Docusate Sodium (Docusate Sodium 100 Mg Capsule) 100 mg PO BEDTIME [facility] Last Admin: 08/23/21 20:55 Dose: 100 mg Documented by: CHERY Enoxaparin Sodium (Enoxaparin Sodium 40 Mg/0.4 Ml Syringe) 40 mg SUBCUT Q24H [facility] Last Admin: 08/23/21 12:21 Dose: 40 mg Documented by: FOZIA Fluticasone/Vilanterol (Fluticasone/Vilanterol 100/25 Blst.W.Dev) 1 puff INHALE DAILY [facility] Last Admin: 08/23/21 08:28 Dose: 1 puff Documented by: HARVEY Gabapentin (Gabapentin 100 Mg Capsule) 100 mg PO TID [facility] Last Admin: 08/23/21 20:55 Dose: 100 mg Documented by: CHERY Gabapentin (Gabapentin 300 Mg Capsule) 600 mg PO BEDTIME [facility] Last Admin: 08/23/21 20:55 Dose: 600 mg Documented by: CHERY Glipizide (Glipizide 10 Mg Tablet) 10 mg PO BIDWM [facility] Last Admin: 08/23/21 17:15 Dose: 10 mg Documented by: ADRIEL Glucose (Glucose Gel 15 Gm Gel..Gram.) 15 gm PO Q15M PRN; Protocol PRN Reason: per Hypoglycemia Standing Ord. Hydralazine HCl (Hydralazine Hcl 50 Mg Tablet) 50 mg PO TID [facility]; Protocol Last Admin: 08/23/21 20:55 Dose: 50 mg Documented by: CHERY Lactated Ringer's (Lr) 1,000 mls @ 80 mls/hr IVCONT .[id number] [facility] Last Infusion: 08/24/21 02:51 Dose: 80 mls/hr Documented by: CHERY Daptomycin 600 mg/ Sodium (Chloride) 62 mls @ 101.732 mls/hr IV Q24H [facility] Last Infusion: 08/23/21 18:43 Dose: 0 mls/hr Documented by: ADRIEL Insulin Human Lispro (Insulin Lispro 100 Unit/Ml 3 Ml Vial) 0 unit SUBCUT QIDACHS [facility]; Protocol Last Admin: 08/23/21 20:56 Dose: 14 unit Documented by: CHERY Comments: per md and ss Lidocaine (Lidocaine 4 % Patch Adh..Patch) 1 patch TRANSDERMA DAILY [facility] Last Admin: 08/23/21 08:21 Dose: Not Given Documented by: FOZIA Non-Admin Reason: Patient Refused Lisinopril (Lisinopril 10 Mg Tablet) 10 mg PO DAILY [facility]; Protocol Last Admin: 08/23/21 08:10 Dose: 10 mg Documented by: FOZIA Montelukast Sodium (Montelukast Sodium 10 Mg Tablet) 10 mg PO BEDTIME [facility] Last Admin: 08/23/21 20:55 Dose: 10 mg Documented by: CHERY Nicotine (Nicotine 21 Mg Patch.Td24) 21 mg TRANSDERMA DAILY [facility] Last Admin: 08/23/21 08:14 Dose: 21 mg Documented by: FOZIA Nystatin (Nystatin Oral Susp 500,000 Unit/5 Ml Oral.Susp) 400,000 unit PO QID [facility]; Protocol Last Admin: 08/23/21 20:56 Dose: 400,000 unit Documented by: CHERY Oxycodone HCl (Oxycodone Hcl Immed Release 5 Mg Tablet) 5 mg PO Q4H PRN PRN Reason: Pain, Mild (Pain Scale 1-3) Last Admin: 08/24/21 04:15 Dose: 5 mg Documented by: CHERY Pharmacy Consult (Consult Rx Perform Med Rec) 1 each MISCELLANE ONCE PRN PRN Reason: Consult order Pharmacy Consult (Consult Rx Vancomycin Dosing) 1 each MISCELLANE DAILY PRN PRN Reason: Consult order Pharmacy Consult (Consult Rx Vancomycin Dosing) 1 each MISCELLANE DAILY PRN PRN Reason: Consult order Polyethylene Glycol (Polyethylene Glycol 3350 17 Gm Powd.Pack) 17 gm PO DAILY [facility] Last Admin: 08/23/21 08:13 Dose: 17 gm Documented by: FOZIA Sodium Chloride (0.9 % Sodium Chloride Flush 3 Ml Syringe) 3 ml IVFLUSH QSHIFT [facility] Last Admin: 08/23/21 20:52 Dose: 3 ml Documented by: CHERY Tiotropium [place] (Tiotropium [place] 18 Mcg Cap.W.Dev) 1 puff INHALE RDAILY [facility] Last Admin: 08/23/21 08:29 Dose: 1 puff Documented by: HARVEY Labs CBC & Chem 7: 03/15/22 02:59 08/24/21 02:59 Labs: Laboratory Results - last 24 hr 08/23/21 08/23/21 08/23/21 05:56 11:25 16:36 MCV MCH MCHC RDW Plt Count MPV Absolute Nucleated RBC Nucleated RBC % (auto) Anion Gap Estim Creat Clear Calc Estimated GFR POC Glucose 288 H 575 H* Random Glucose Calcium Magnesium Total Creatine Kinase 53 08/23/21 08/23/21 08/24/21 19:49 23:55 02:39 MCV MCH MCHC RDW Plt Count MPV Absolute Nucleated RBC Nucleated RBC % (auto) Anion Gap Estim Creat Clear Calc Estimated GFR POC Glucose 429 H* 199 H 177 H Random Glucose Calcium Magnesium Total Creatine Kinase 08/24/21 08/24/21 08/24/21 02:59 02:59 02:59 MCV 81.4 MCH 24.3 L MCHC 29.8 L RDW 15.9 Plt Count 242 MPV 10.7 Absolute Nucleated RBC 0.000 Nucleated RBC % (auto) 0.0 Anion Gap Cancelled 13 Estim Creat Clear Calc Cancelled 84.3 Estimated GFR Cancelled > 60 POC Glucose Random Glucose Cancelled 183 H Calcium Cancelled 8.5 Magnesium 1.9 Total Creatine Kinase 08/24/21 08/24/21 08/24/21 04:15 06:02 07:02 MCV MCH MCHC RDW Plt Count MPV Absolute Nucleated RBC Nucleated RBC % (auto) Anion Gap Estim Creat Clear Calc Estimated GFR POC Glucose 166 H 139 H 132 H Random Glucose Calcium Magnesium Total Creatine Kinase Microbiology Microbiology Results: Microbiology 08/21/21 06:50 Blood Culture - Preliminary Blood - Venous No growth after 48 hours. 08/21/21 06:50 Blood Culture - Preliminary Blood - Venous No growth after 48 hours. Procedures Date of Service Date of Service: 08/24/21 Progress Note: A&P Assessment and plan (1) Osteomyelitis: Status: Acute (2) Diabetic toe ulcer: Status: Acute Plan discharge planned for today on IV antibiotics via PICC line. Patient should follow up in my office in approximately 1 week for wound examination. Arrangements could be made for amputation of 2nd toe as an outpatient. Patient will need to changes dressings daily with 4 x 4 gauze between toes and Kerlix wrap. Fall Risk Details Current Medications: Current Medications Albuterol/Ipratropium (Albuterol/Iprat 2.5/0.5mg 3 Ml Ampul.Neb) 3 ml INHALE RQ4H [facility] Last Admin: 08/24/21 04:52 Dose: 3 ml Documented by: Amlodipine Besylate (Amlodipine Besylate 10 Mg Tablet) 10 mg PO DAILY [facility]; Protocol Last Admin: 08/23/21 08:10 Dose: 10 mg Documented by: Aspirin (Aspirin Enteric Coated 81 Mg Tablet.) 81 mg PO DAILY [facility] Last Admin: 08/23/21 08:08 Dose: 81 mg Documented by: Atorvastatin Calcium (Atorvastatin Calcium 10 Mg Tablet) 10 mg PO DAILY [facility] Last Admin: 08/23/21 08:09 Dose: 10 mg Documented by: Clotrimazole (Clotrimazole 1 % Cream 15 Gm Tube) 1 appl TOPICAL BID [facility]; Protocol Last Admin: 08/23/21 20:56 Dose: 1 appl Documented by: Cyclobenzaprine HCl (Cyclobenzaprine Hcl 10 Mg Tablet) 10 mg PO TID PRN PRN Reason: muscle spasm Last Admin: 08/23/21 20:55 Dose: 10 mg Documented by: Dextrose (Dextrose 50 % 25 Gm/50 Ml Vial) 25 gm IVPUSH Q15M PRN; Protocol PRN Reason: per Hypoglycemia Standing Ord. Docusate Sodium (Docusate Sodium 100 Mg Capsule) 100 mg PO BEDTIME [facility] Last Admin: 08/23/21 20:55 Dose: 100 mg Documented by: Enoxaparin Sodium (Enoxaparin Sodium 40 Mg/0.4 Ml Syringe) 40 mg SUBCUT Q24H [facility] Last Admin: 08/23/21 12:21 Dose: 40 mg Documented by: Fluticasone/Vilanterol (Fluticasone/Vilanterol 100/25 Blst.W.Dev) 1 puff INHALE DAILY [facility] Last Admin: 08/23/21 08:28 Dose: 1 puff Documented by: Gabapentin (Gabapentin 100 Mg Capsule) 100 mg PO TID [facility] Last Admin: 08/23/21 20:55 Dose: 100 mg Documented by: Gabapentin (Gabapentin 300 Mg Capsule) 600 mg PO BEDTIME [facility] Last Admin: 08/23/21 20:55 Dose: 600 mg Documented by: Glipizide (Glipizide 10 Mg Tablet) 10 mg PO BIDWM [facility] Last Admin: 08/23/21 17:15 Dose: 10 mg Documented by: Glucose (Glucose Gel 15 Gm Gel..Gram.) 15 gm PO Q15M PRN; Protocol PRN Reason: per Hypoglycemia Standing Ord. Hydralazine HCl (Hydralazine Hcl 50 Mg Tablet) 50 mg PO TID [facility]; Protocol Last Admin: 08/23/21 20:55 Dose: 50 mg Documented by: Lactated Ringer's (Lr) 1,000 mls @ 80 mls/hr IVCONT .[id number] [facility] Last Infusion: 08/24/21 02:51 Dose: 80 mls/hr Documented by: Daptomycin 600 mg/ Sodium (Chloride) 62 mls @ 101.732 mls/hr IV Q24H [facility] Last Infusion: 08/23/21 18:43 Dose: Infused Documented by: Insulin Human Lispro (Insulin Lispro 100 Unit/Ml 3 Ml Vial) 0 unit SUBCUT QIDACHS [facility]; Protocol Last Admin: 08/23/21 20:56 Dose: 14 unit Documented by: Lidocaine (Lidocaine 4 % Patch Adh..Patch) 1 patch TRANSDERMA DAILY [facility] Last Admin: 08/23/21 08:21 Dose: Not Given Documented by: Lisinopril (Lisinopril 10 Mg Tablet) 10 mg PO DAILY [facility]; Protocol Last Admin: 08/23/21 08:10 Dose: 10 mg Documented by: Montelukast Sodium (Montelukast Sodium 10 Mg Tablet) 10 mg PO BEDTIME [facility] Last Admin: 08/23/21 20:55 Dose: 10 mg Documented by: Nicotine (Nicotine 21 Mg Patch.Td24) 21 mg TRANSDERMA DAILY [facility] Last Admin: 08/23/21 08:14 Dose: 21 mg Documented by: Nystatin (Nystatin Oral Susp 500,000 Unit/5 Ml Oral.Susp) 400,000 unit PO QID [facility]; Protocol Last Admin: 08/23/21 20:56 Dose: 400,000 unit Documented by: Oxycodone HCl (Oxycodone Hcl Immed Release 5 Mg Tablet) 5 mg PO Q4H PRN PRN Reason: Pain, Mild (Pain Scale 1-3) Last Admin: 08/24/21 04:15 Dose: 5 mg Documented by: Pharmacy Consult (Consult Rx Perform Med Rec) 1 each MISCELLANE ONCE PRN PRN Reason: Consult order Pharmacy Consult (Consult Rx Vancomycin Dosing) 1 each MISCELLANE DAILY PRN PRN Reason: Consult order Pharmacy Consult (Consult Rx Vancomycin Dosing) 1 each MISCELLANE DAILY PRN PRN Reason: Consult order Polyethylene Glycol (Polyethylene Glycol 3350 17 Gm Powd.Pack) 17 gm PO DAILY [facility] Last Admin: 08/23/21 08:13 Dose: 17 gm Documented by: Sodium Chloride (0.9 % Sodium Chloride Flush 3 Ml Syringe) 3 ml IVFLUSH QSHIFT [facility] Last Admin: 08/23/21 20:52 Dose: 3 ml Documented by: Tiotropium [place] (Tiotropium [place] 18 Mcg Cap.W.Dev) 1 puff INHALE RDAILY [facility] Last Admin: 08/23/21 08:29 Dose: 1 puff Documented by: Time Spent With Patient Time: Total time spent is greater than 50% in coordination of care (as documented) at patient's floor/unit and/or counseling patient: Time with patient: 15 - 24 minutes Quality Stroke Does the patient have a stroke diagnosis?: No VTE Prior VTE?: No VTE Risk Level:: Medical - moderate - high VTE Device Contraindication: N/A - Device Ordered VTE Drug Contraindication: N/A - Med Ordered
[2021-08-24] MEDS: Fluticasone/Vilanterol 100/25 BLST.W.DEV 1 PUFF INHALE (08:19)
[2021-08-24 08:21] VITALS: PULSE 105; RESP 16; O2SAT 99
--- NOTE | 2021-08-24 08:50 | ECG_ITS ---
Test Reason : tachycardia Blood Pressure : / mmHG Vent. Rate : 109 BPM Atrial Rate : 109 BPM P-R Int : 136 ms QRS Dur : 078 ms QT Int : 354 ms P-R-T Axes : 075 051 099 degrees QTc Int : 476 ms Sinus tachycardia Nonspecific T wave abnormality Abnormal ECG When compared with ECG of 25-DEC-2020 14:10, Nonspecific T wave abnormality now evident in Lateral leads Referred By: Wendy Jimenes Electronically Signed By:WENDY JIMENES
--- NOTE | 2021-08-24 09:13 | P.DS_ITS ---
DS: Providers Provider Date of Service: 08/24/21 Date of admission: 08/21/21 10:32 Primary care physician: MITZI Barillas Consults: 08/21/21 10:29 Consult to General Surgery Routine Consulting Provider[place] [facility] [place] [facility] [place] [facility] Reason for consultation: left foot osteo and foot abcess/fascitis Has provider been notified: No 08/21/21 10:30 Consult to Infectious Diseases Routine Consulting Provider: Angie Padilla Reason for consultation: cellulitis , foot abcess /osteo Has provider been notified: No 08/24/21 02:33 Consult to Cardiology Routine Consulting Provider: Chandana Dave Reason for consultation: nsvt DS: Diagnosis Discharge Diagnosis (1) Osteomyelitis: Status: Acute (2) Diabetic toe ulcer: Status: Acute DS: Summary Hospital Course Hospital Course: Chief Complaint: Abdominal pain, vomiting A 50 years old lady with PMH of hypertension, diabetes, COPD among others who presented to the hospital with a complaint of abdominal pain and vomiting for the last 3 days. The patient reported that she was started on clindamycin and tramadol 3 days a early for a dental infection antibiotics were changed to Levaquin and Flagyl but symptoms persisted.? She visited the emergency 3 times already before this current visit.She was lethargic did not want to talk much but reported her pain is epigastric associated with vomiting and is almost constant all the time.? The patient reports doing taking all her medications at home including the blood pressure once.? Her she denies any fever, chills, dizziness, shortness of breath and cough pain or even diarrhea or urinary symptoms. In the emergency a CT scan was done yesterday showing possible inflammatory versus malignancy changes in the end of the esophagus. Today her blood pressure is significantly elevated around 200 systolic.? Admitted for further evaluation and treatment. Hospital course: 1. COPD exacerbation--treated and resolved 2. sepsis /diabetic foot infection/osteomyelitis of the second proximal phalanx and the second metatarsal head and neck,also showed abcess by MRI Was on Vanco in the hopsital. ID recommends 6 weeks of therapy with Daptomycin 3. Diabetes: diabetes uncontrolled A1C 10. She claims insurance has not been covering her weekly injection. Will continue Glipzide and SSI and restart home dose of Metformin 4. Hypertension: BP for the most part very high, meds adjsuted. To continue Lisinopril, Norvasc and Hydralazine and HCTZ 5.Peripheral neuropathy? possibly related to diabetes Continue home gabapentin 6. Active smoker: Nicotine patch DVT prophylaxis with subQ Lovenox Time Spent with Patient Time attestation: Total time spent providing and/or coordinating discharge services: Discharge coordination time: Greater than 30 minutes Quality: Stroke Does the patient have a stroke diagnosis?: No Physical Exam Vital Signs: Vital Signs: Last Vital Signs Temp 98 F 08/24/21 07:02 Pulse 105 H 08/24/21 08:21 Resp 16 08/24/21 08:21 BP 170/79 H 08/24/21 07:02 Pulse Ox 96 08/24/21 07:02 BMI result Body Mass Index 26.6 DS: Data Data Completed and Pending Labs on day of discharge: Laboratory Results - last 24 hr 08/23/21 08/23/21 08/23/21 05:56 11:25 16:36 WBC RBC Hgb Hct MCV MCH MCHC RDW Plt Count MPV Absolute Nucleated RBC Nucleated RBC % (auto) Sodium Potassium Chloride Carbon Dioxide Anion Gap BUN Creatinine Estim Creat Clear Calc Estimated GFR POC Glucose 288 H 575 H* Random Glucose Calcium Magnesium Total Creatine Kinase 53 Vancomycin Trough 08/23/21 08/23/21 08/24/21 19:49 23:55 02:39 WBC RBC Hgb Hct MCV MCH MCHC RDW Plt Count MPV Absolute Nucleated RBC Nucleated RBC % (auto) Sodium Potassium Chloride Carbon Dioxide Anion Gap BUN Creatinine Estim Creat Clear Calc Estimated GFR POC Glucose 429 H* 199 H 177 H Random Glucose Calcium Magnesium Total Creatine Kinase Vancomycin Trough 08/24/21 08/24/21 08/24/21 02:59 02:59 02:59 WBC 6.9 RBC 4.08 L Hgb 9.9 L Hct 33.2 L MCV 81.4 MCH 24.3 L MCHC 29.8 L RDW 15.9 Plt Count 242 MPV 10.7 Absolute Nucleated RBC 0.000 Nucleated RBC % (auto) 0.0 Sodium Cancelled 139 Potassium Cancelled 3.5 Chloride Cancelled 102 Carbon Dioxide Cancelled 28 Anion Gap Cancelled 13 BUN Cancelled 15 Creatinine Cancelled 0.74 Estim Creat Clear Calc Cancelled 84.3 Estimated GFR Cancelled > 60 POC Glucose Random Glucose Cancelled 183 H Calcium Cancelled 8.5 Magnesium 1.9 Total Creatine Kinase Vancomycin Trough 08/24/21 08/24/21 08/24/21 04:15 06:02 07:02 WBC RBC Hgb Hct MCV MCH MCHC RDW Plt Count MPV Absolute Nucleated RBC Nucleated RBC % (auto) Sodium Potassium Chloride Carbon Dioxide Anion Gap BUN Creatinine Estim Creat Clear Calc Estimated GFR POC Glucose 166 H 139 H 132 H Random Glucose Calcium Magnesium Total Creatine Kinase Vancomycin Trough 08/24/21 08:08 WBC RBC Hgb Hct MCV MCH MCHC RDW Plt Count MPV Absolute Nucleated RBC Nucleated RBC % (auto) Sodium Potassium Chloride Carbon Dioxide Anion Gap BUN Creatinine Estim Creat Clear Calc Estimated GFR POC Glucose Random Glucose Calcium Magnesium Total Creatine Kinase Vancomycin Trough 6.0 L Preliminary micro results at discharge 08/21/21 06:50 Blood Culture - Preliminary Blood - Venous No growth after 48 hours. 08/21/21 06:50 Blood Culture - Preliminary Blood - Venous No growth after 48 hours. Discharge Plan Discharge Anticipated Discharge Date/Time: 08/24/21 15:23 Patient Disposition: Home, Self-Care Discharge Diagnosis: Osteomyelitis of the foot Referrals: Physician,Unknown J [Primary Care Provider] - 1 Week Discharge Medications: New daptomycin 350 mg Recon Soln 600 mg IV Q24H Qty: 40 0RF Continued atorvastatin 10 mg tablet 1 tab PO DAILY 0RF aspirin 81 mg tablet,delayed release (DR/EC) 1 tab PO DAILY 0RF gabapentin 300 mg capsule 2 cap PO BEDTIME 0RF montelukast 10 mg tablet 1 tab PO QPM 0RF albuterol sulfate [ProAir HFA] 90 mcg/actuation HFA aerosol inhaler 2 puff PO Q4H PRN (Reason: wheezing) 0RF glipizide-metformin 5-500 mg tablet 2 tab PO BIDWM 0RF Advair HFA 115-21 mcg/actuation HFA aerosol inhaler 2 puff inhalation BID 0RF Incruse Ellipta 62.5 mcg/actuation blister with device 1 puff PO DAILY 0RF nystatin 100,000 unit/mL Suspension 400,000 unit PO QID 7 Days Qty: 112 0RF Protocol: Apply to: Apply to: Swish and swallow hydralazine 25 mg Tablet 25 mg PO TID 30 Days Qty: 90 0RF Protocol: Hold for SBP< HOLD for SBP < : 90 amlodipine 10 mg Tablet 10 mg PO DAILY 30 Days Qty: 30 0RF Protocol: Hold for SBP< HOLD for SBP < : 90 cyclobenzaprine 10 mg tablet 10 mg PO TID PRN (Reason: muscle spasm) Qty: 10 0RF lidocaine [Lidoderm] 5 % adhesive patch,medicated 1 patch topical DAILY Qty: 15 0RF Rx Instructions: leave on most painful area for up to 12 hrs albuterol sulfate 2.5 mg /3 mL (0.083 %) Solution For Nebulization 2.5 mg INHALATION Q4H PRN (Reason: Respiratory Distress) 0RF lisinopril-hydrochlorothiazide 20-12.5 mg Tablet 1 tab PO DAILY 0RF No Action doxycycline hyclate 100 mg capsule 100 mg PO BID 30 Days Qty: 60 1RF Discharge Orders: Discharge Order (Routine); Ordered 08/24/21 Ordered By: Delta Umaña Diet: advance to usual diet Activity on Discharge: As tolerated Stand Alone Forms: Patient Portal Discharge page Care Plan Goals: Full recovery from osteomylitis Health Concerns: osteomylitis, diabetes with its complications Plan of Treatment: Take Daptomycin as directed and follow up with your Doctor in a week, follow up with Dr. Tamez in 2 weeks Assessment: As above Discharge Date/Time: 08/24/21 16:30
--- NOTE | 2021-08-24 09:43 | HO.PM.IMPN ---
Subjective Subjective Date of Service: 08/24/21 Interval History: F/u on ostemylitis, no new issues, Review of Systems no pain in the foot, no sob Physical Exam Vital Signs: Vital Signs: Last Vital Signs Temp 98 F 08/24/21 07:02 Pulse 105 H 08/24/21 08:21 Resp 16 08/24/21 08:21 BP 170/79 H 08/24/21 07:02 Pulse Ox 96 08/24/21 07:02 BMI result Body Mass Index 26.6 Const: Other: General: AO X 3, no acute distress Resp: CTA bilateral CVS: S1,S2,RRR GI: +BS, NT, no distention Skin: Neuro: motor grossly intact Psych: appropriate affect Objective Data Active Medications Albuterol/Ipratropium (Albuterol/Iprat 2.5/0.5mg 3 Ml Ampul.Neb) 3 ml INHALE RQ4H [facility] [place] Last Admin: 08/24/21 08:19 Dose: 3 ml Documented by: HARVEY Amlodipine Besylate (Amlodipine Besylate 10 Mg Tablet) 10 mg PO DAILY [facility] [place]; Protocol Last Admin: 08/23/21 08:10 Dose: 10 mg Documented by: FOZIA Aspirin (Aspirin Enteric Coated 81 Mg Tablet.) 81 mg PO DAILY [facility] [place] Last Admin: 08/23/21 08:08 Dose: 81 mg Documented by: FOZIA Atorvastatin Calcium (Atorvastatin Calcium 10 Mg Tablet) 10 mg PO DAILY [facility] [place] Last Admin: 08/23/21 08:09 Dose: 10 mg Documented by: FOZIA Clotrimazole (Clotrimazole 1 % Cream 15 Gm Tube) 1 appl TOPICAL BID [facility] [place]; Protocol Last Admin: 08/23/21 20:56 Dose: 1 appl Documented by: CHERY Cyclobenzaprine HCl (Cyclobenzaprine Hcl 10 Mg Tablet) 10 mg PO TID PRN PRN Reason: muscle spasm Last Admin: 08/23/21 20:55 Dose: 10 mg Documented by: CHERY Dextrose (Dextrose 50 % 25 Gm/50 Ml Vial) 25 gm IVPUSH Q15M PRN; Protocol PRN Reason: per Hypoglycemia Standing Ord. Docusate Sodium (Docusate Sodium 100 Mg Capsule) 100 mg PO BEDTIME [facility] [place] Last Admin: 08/23/21 20:55 Dose: 100 mg Documented by: CHERY Enoxaparin Sodium (Enoxaparin Sodium 40 Mg/0.4 Ml Syringe) 40 mg SUBCUT Q24H [facility] [place] Last Admin: 08/23/21 12:21 Dose: 40 mg Documented by: FOZIA Fluticasone/Vilanterol (Fluticasone/Vilanterol 100/25 Blst.W.Dev) 1 puff INHALE DAILY [facility] [place] Last Admin: 08/24/21 08:19 Dose: 1 puff Documented by: HARVEY Gabapentin (Gabapentin 100 Mg Capsule) 100 mg PO TID [facility] [place] Last Admin: 08/23/21 20:55 Dose: 100 mg Documented by: CHERY Gabapentin (Gabapentin 300 Mg Capsule) 600 mg PO BEDTIME [facility] [place] Last Admin: 08/23/21 20:55 Dose: 600 mg Documented by: CHERY Glipizide (Glipizide 10 Mg Tablet) 10 mg PO BIDWM [facility] [place] Last Admin: 08/23/21 17:15 Dose: 10 mg Documented by: ADRIEL Glucose (Glucose Gel 15 Gm Gel..Gram.) 15 gm PO Q15M PRN; Protocol PRN Reason: per Hypoglycemia Standing Ord. Hydralazine HCl (Hydralazine Hcl 50 Mg Tablet) 50 mg PO TID [facility] [place]; Protocol Last Admin: 08/23/21 20:55 Dose: 50 mg Documented by: CHERY Hydrochlorothiazide (Hydrochlorothiazide 12.5 Mg Tablet) 12.5 mg PO DAILY [facility] [place]; Protocol Lactated Ringer's (Lr) 1,000 mls @ 80 mls/hr IVCONT .[id number] [facility] [place] Last Infusion: 08/24/21 02:51 Dose: 80 mls/hr Documented by: CHERY Daptomycin 600 mg/ Sodium (Chloride) 62 mls @ 101.732 mls/hr IV Q24H [facility] [place] Last Infusion: 08/23/21 18:43 Dose: 0 mls/hr Documented by: ADRIEL Insulin Human Lispro (Insulin Lispro 100 Unit/Ml 3 Ml Vial) 0 unit SUBCUT QIDACHS [facility] [place]; Protocol Last Admin: 08/24/21 08:38 Dose: Not Given Documented by: DENZEL Non-Admin Reason: No Insulin Coverage Lidocaine (Lidocaine 4 % Patch Adh..Patch) 1 patch TRANSDERMA DAILY [facility] [place] Last Admin: 08/23/21 08:21 Dose: Not Given Documented by: FOZIA Non-Admin Reason: Patient Refused Lisinopril (Lisinopril 20 Mg Tablet) 20 mg PO DAILY [facility] [place]; Protocol Montelukast Sodium (Montelukast Sodium 10 Mg Tablet) 10 mg PO BEDTIME [facility] [place] Last Admin: 08/23/21 20:55 Dose: 10 mg Documented by: CHERY Nicotine (Nicotine 21 Mg Patch.Td24) 21 mg TRANSDERMA DAILY [facility] [place] Last Admin: 08/23/21 08:14 Dose: 21 mg Documented by: FOZIA Nystatin (Nystatin Oral Susp 500,000 Unit/5 Ml Oral.Susp) 400,000 unit PO QID [facility] [place]; Protocol Last Admin: 08/23/21 20:56 Dose: 400,000 unit Documented by: CHERY Oxycodone HCl (Oxycodone Hcl Immed Release 5 Mg Tablet) 5 mg PO Q4H PRN PRN Reason: Pain, Mild (Pain Scale 1-3) Last Admin: 08/24/21 04:15 Dose: 5 mg Documented by: CHERY Pharmacy Consult (Consult Rx Perform Med Rec) 1 each MISCELLANE ONCE PRN PRN Reason: Consult order Pharmacy Consult (Consult Rx Vancomycin Dosing) 1 each MISCELLANE DAILY PRN PRN Reason: Consult order Pharmacy Consult (Consult Rx Vancomycin Dosing) 1 each MISCELLANE DAILY PRN PRN Reason: Consult order Polyethylene Glycol (Polyethylene Glycol 3350 17 Gm Powd.Pack) 17 gm PO DAILY [facility] [place] Last Admin: 08/23/21 08:13 Dose: 17 gm Documented by: FOZIA Sodium Chloride (0.9 % Sodium Chloride Flush 3 Ml Syringe) 3 ml IVFLUSH QSHIFT [facility] [place] Last Admin: 08/23/21 20:52 Dose: 3 ml Documented by: CHERY Tiotropium [place] (Tiotropium [place] 18 Mcg Cap.W.Dev) 1 puff INHALE RDAILY [facility] [place] Last Admin: 08/24/21 08:19 Dose: 1 puff Documented by: HARVEY Labs CBC & Chem 7: 08/24/21 02:59 08/24/21 02:59 Labs: Laboratory Results - last 24 hr 0308/22/21 08/23/21 06:48 07:01 05:56 MCV MCH MCHC RDW Plt Count MPV Absolute Nucleated RBC Nucleated RBC % (auto) Anion Gap Creatinine 0.75 0.85 0.80 Estim Creat Clear Calc Estimated GFR POC Glucose Random Glucose Calcium Magnesium Total Creatine Kinase 53 Vancomycin Trough 08/23/21 08/23/21 08/23/21 11:25 16:36 19:49 MCV MCH MCHC RDW Plt Count MPV Absolute Nucleated RBC Nucleated RBC % (auto) Anion Gap Creatinine Estim Creat Clear Calc Estimated GFR POC Glucose 288 H 575 H* 429 H* Random Glucose Calcium Magnesium Total Creatine Kinase Vancomycin Trough 08/23/21 08/24/21 08/24/21 23:55 02:39 02:59 MCV 81.4 MCH 24.3 L MCHC 29.8 L RDW 15.9 Plt Count 242 MPV 10.7 Absolute Nucleated RBC 0.000 Nucleated RBC % (auto) 0.0 Anion Gap Creatinine Estim Creat Clear Calc Estimated GFR POC Glucose 199 H 177 H Random Glucose Calcium Magnesium Total Creatine Kinase Vancomycin Trough 08/24/21 08/24/21 08/24/21 02:59 02:59 04:15 MCV MCH MCHC RDW Plt Count MPV Absolute Nucleated RBC Nucleated RBC % (auto) Anion Gap Cancelled 13 Creatinine Cancelled 0.74 Estim Creat Clear Calc Cancelled 84.3 Estimated GFR Cancelled > 60 POC Glucose 166 H Random Glucose Cancelled 183 H Calcium Cancelled 8.5 Magnesium 1.9 Total Creatine Kinase Vancomycin Trough 08/24/21 08/24/21 08/24/21 06:02 07:02 08:08 MCV MCH MCHC RDW Plt Count MPV Absolute Nucleated RBC Nucleated RBC % (auto) Anion Gap Creatinine Estim Creat Clear Calc Estimated GFR POC Glucose 139 H 132 H Random Glucose Calcium Magnesium Total Creatine Kinase Vancomycin Trough 6.0 L Microbiology Microbiology Results: Microbiology 08/21/21 06:50 Blood Culture - Preliminary Blood - Venous No growth after 48 hours. 08/21/21 06:50 Blood Culture - Preliminary Blood - Venous No growth after 48 hours. Assessment and Plan (1) COPD exacerbation: Status: Acute (2) Cellulitis: Status: Acute (3) Hyperglycemia: Status: Acute (4) Cellulitis: Status: Acute Plan 51/F w/ diabetes, HLD, peripheral neuropathy, copd here with 1. COPD exacerbation--treated and resolved 2. sepsis /diabetic foot infection/osteomyelitis of the second proximal phalanx and the second metatarsal head and neck,also showed abcess by MRI [facility] on Vanco [facility] the [facility]ital. ID recommends 6 weeks of therapy with Daptomycin 3. Diabetes: diabetes uncontrolled A1C 10. She claims insurance has not been covering her weekly injection. Will continue Glipzide and SSI 4. Hypertension: BP for the most part very high, meds adjsuted. To continue Lisinopril, Norvasc and Hydralazine and HCTZ 5.Peripheral neuropathy? possibly related to diabetes Continue home gabapentin 6. Active smoker: Nicotine patch DVT prophylaxis with subQ Lovenox Needs for inpatient: requiring IV abx for osteomyltis until [facility] can be established for home infusion so far [facility] has not accepted her Quality Stroke Does the patient have a stroke diagnosis?: No VTE Prior VTE?: No VTE Risk Level:: Medical - moderate - high VTE Device Contraindication: N/A - Device Ordered VTE Drug Contraindication: N/A - Med Ordered
[2021-08-24] MEDS: 0.9 % Sodium Chloride Flush 3 ML SYRINGE IVFLUSH ×2 (09:48→15:29)
[2021-08-24] MEDS: Aspirin Enteric Coated 81 MG TABLET.DR PO (09:49)
[2021-08-24] MEDS: glipiZIDE 10 MG TABLET PO (09:49)
[2021-08-24] MEDS: Gabapentin 100 MG CAPSULE PO ×2 (09:49→15:29)
[2021-08-24] MEDS: Atorvastatin Calcium 10 MG TABLET PO (09:49)
[2021-08-24] MEDS: hydrALAZINE HCl 50 MG TABLET PO ×2 (09:49→15:29)
[2021-08-24] MEDS: amLODIPine Besylate 10 MG TABLET PO (09:50)
[2021-08-24] MEDS: Nicotine 21 MG PATCH.TD24 TRANSDERMA (09:51)
[2021-08-24] MEDS: Nystatin Oral Susp 500,000 UNIT/5 ML ORAL.SUSP 400000 UNIT PO ×2 (09:53→15:29)
[2021-08-24] MEDS: lisinopriL 20 MG TABLET PO (10:19)
[2021-08-24] MEDS: hydroCHLOROthiazide 12.5 MG TABLET PO (10:20)
--- NOTE | 2021-08-24 10:38 | PM.CNCAR ---
History of Present Illness History of Present Illness Date of Service: 08/24/21 Chief complaint: Sepsis, cellulitis, foot abscess Narrative: This is a cardiology consultation regarding concern for NSVT. Patient herself is a chronic smoker and she also has diabetes for a while. However she denies any history of coronary disease myocardial infarction or any other cardiac issues. She has chronic shortness of breath related to COPD itself. No anginal symptoms at any point. She is in the hospital for diabetic foot issues. There is a concern for NSVT on telemetry and hence we were asked to see. Patient herself does not feel anything. Apart from the COPD symptoms she does not have anything cardiac related. Review of Systems Review of Systems: Yes all other systems are reviewed and are negative Cardiovascular: Cardiovascular: Reports as per HPI, Reports no additional cardiovascular complaints, Denies acrocyanosis, Denies cool extremities, Denies chest pain, Denies diaphoresis, Denies syncope, Denies claudication, Denies leg edema, Denies lightheadedness, Denies palpitations and Reports dyspnea Respiratory: Respiratory: Reports dyspnea Neurologic: Denies syncope Endocrine: Endocrine: Denies palpitations [facility] Past Medical History Medical History (Updated 08/24/21 @ 10:46 by Chandana Dave MD) Asthma COPD (chronic obstructive pulmonary disease) Diabetes Essential hypertension Heart problem Hypertension Family History Family History (Updated 08/24/21 @ 10:42 by Chandana Dave MD) Mother Hx of CABG Sister CAD (coronary artery disease) Surgical History Surgical History No pertinent past surgical history Social History Social History Household Members: Family Housing: Apartment Do you presently have visiting nurse or other home services: No Alcohol intake: unknown Patient Tobacco Use Status: Current everyday Tobacco user Tobacco use type: Cigarette e-Cigarette/Vaping Use: Never Used Second Hand Smoke Exposure: Yes service: No Current occupational status: unemployed Meds Allergies Allergy/AdvReac Type Severity Reaction Status Date / Time Penicillins [PENICILLINS] Allergy Severe RASH Verified 02/07/21 06:17 amoxicillin [AMOXICILLIN] Allergy Intermediate HIVES Verified 02/07/21 06:17 Active Medications: Current Medications Albuterol/Ipratropium (Albuterol/Iprat 2.5/0.5mg 3 Ml Ampul.Neb) 3 ml INHALE RQ4H [facility] Last Admin: 08/24/21 08:19 Dose: 3 ml Documented by: Amlodipine Besylate (Amlodipine Besylate 10 Mg Tablet) 10 mg PO DAILY [facility]; Protocol Last Admin: 08/24/21 09:50 Dose: 10 mg Documented by: Aspirin (Aspirin Enteric Coated 81 Mg Tablet.) 81 mg PO DAILY [facility] Last Admin: 08/24/21 09:49 Dose: 81 mg Documented by: Atorvastatin Calcium (Atorvastatin Calcium 10 Mg Tablet) 10 mg PO DAILY [facility] Last Admin: 08/24/21 09:49 Dose: 10 mg Documented by: Clotrimazole (Clotrimazole 1 % Cream 15 Gm Tube) 1 appl TOPICAL BID [facility]; Protocol Last Admin: 08/24/21 09:52 Dose: Not Given Documented by: Cyclobenzaprine HCl (Cyclobenzaprine Hcl 10 Mg Tablet) 10 mg PO TID PRN PRN Reason: muscle spasm Last Admin: 08/23/21 20:55 Dose: 10 mg Documented by: Dextrose (Dextrose 50 % 25 Gm/50 Ml Vial) 25 gm IVPUSH Q15M PRN; Protocol PRN Reason: per Hypoglycemia Standing Ord. Docusate Sodium (Docusate Sodium 100 Mg Capsule) 100 mg PO BEDTIME [facility] Last Admin: 08/23/21 20:55 Dose: 100 mg Documented by: Enoxaparin Sodium (Enoxaparin Sodium 40 Mg/0.4 Ml Syringe) 40 mg SUBCUT Q24H [facility] Last Admin: 08/24/21 09:55 Dose: Not Given Documented by: Fluticasone/Vilanterol (Fluticasone/Vilanterol 100/25 Blst.W.Dev) 1 puff INHALE DAILY [facility] Last Admin: 08/24/21 08:19 Dose: 1 puff Documented by: Gabapentin (Gabapentin 100 Mg Capsule) 100 mg PO TID [facility] Last Admin: 08/24/21 09:49 Dose: 100 mg Documented by: Gabapentin (Gabapentin 300 Mg Capsule) 600 mg PO BEDTIME [facility] Last Admin: 08/23/21 20:55 Dose: 600 mg Documented by: Glipizide (Glipizide 10 Mg Tablet) 10 mg PO BIDWM [facility] Last Admin: 08/24/21 09:49 Dose: 10 mg Documented by: Glucose (Glucose Gel 15 Gm Gel..Gram.) 15 gm PO Q15M PRN; Protocol PRN Reason: per Hypoglycemia Standing Ord. Hydralazine HCl (Hydralazine Hcl 50 Mg Tablet) 50 mg PO TID [facility]; Protocol Last Admin: 08/24/21 09:49 Dose: 50 mg Documented by: Hydrochlorothiazide (Hydrochlorothiazide 12.5 Mg Tablet) 12.5 mg PO DAILY [facility]; Protocol Last Admin: 08/24/21 10:20 Dose: 12.5 mg Documented by: Lactated Ringer's (Lr) 1,000 mls @ 80 mls/hr IVCONT .[id number] [facility] Last Infusion: 08/24/21 02:51 Dose: 80 mls/hr Documented by: Daptomycin 600 mg/ Sodium (Chloride) 62 mls @ 101.732 mls/hr IV Q24H [facility] Last Infusion: 08/23/21 18:43 Dose: Infused Documented by: Insulin Human Lispro (Insulin Lispro 100 Unit/Ml 3 Ml Vial) 0 unit SUBCUT QIDACHS [facility]; Protocol Last Admin: 08/24/21 08:38 Dose: Not Given Documented by: Lidocaine (Lidocaine 4 % Patch Adh..Patch) 1 patch TRANSDERMA DAILY [facility] Last Admin: 08/24/21 09:51 Dose: Not Given Documented by: Lisinopril (Lisinopril 20 Mg Tablet) 20 mg PO DAILY [facility]; Protocol Last Admin: 08/24/21 10:19 Dose: 20 mg Documented by: Montelukast Sodium (Montelukast Sodium 10 Mg Tablet) 10 mg PO BEDTIME [facility] Last Admin: 08/23/21 20:55 Dose: 10 mg Documented by: Nicotine (Nicotine 21 Mg Patch.Td24) 21 mg TRANSDERMA DAILY [facility] Last Admin: 08/24/21 09:51 Dose: 21 mg Documented by: Nystatin (Nystatin Oral Susp 500,000 Unit/5 Ml Oral.Susp) 400,000 unit PO QID [facility]; Protocol Last Admin: 08/24/21 09:53 Dose: 400,000 unit Documented by: Oxycodone HCl (Oxycodone Hcl Immed Release 5 Mg Tablet) 5 mg PO Q4H PRN PRN Reason: Pain, Mild (Pain Scale 1-3) Last Admin: 08/24/21 09:48 Dose: 5 mg Documented by: Pharmacy Consult (Consult Rx Perform Med Rec) 1 each MISCELLANE ONCE PRN PRN Reason: Consult order Pharmacy Consult (Consult Rx Vancomycin Dosing) 1 each MISCELLANE DAILY PRN PRN Reason: Consult order Pharmacy Consult (Consult Rx Vancomycin Dosing) 1 each MISCELLANE DAILY PRN PRN Reason: Consult order Polyethylene Glycol (Polyethylene Glycol 3350 17 Gm Powd.Pack) 17 gm PO DAILY [facility] Last Admin: 08/24/21 09:54 Dose: Not Given Documented by: Sodium Chloride (0.9 % Sodium Chloride Flush 3 Ml Syringe) 3 ml IVFLUSH QSHIFT [facility] Last Admin: 08/24/21 09:48 Dose: 3 ml Documented by: Tiotropium Superior (Tiotropium Superior 18 Mcg Cap.W.Dev) 1 puff INHALE RDAILY [facility] Last Admin: 08/24/21 08:19 Dose: 1 puff Documented by: Home Medications Medication Instructions Recorded Confirmed Last Taken Type albuterol sulfate 90 mcg/actuation 2 puff PO Q4H PRN 12/24/20 08/21/21 07/10/21 21:00 History aerosol inhaler (ProAir HFA) aspirin 81 mg tablet,delayed 1 tab PO DAILY 12/24/20 08/21/21 07/10/21 11:00 History release atorvastatin 10 mg tablet 1 tab PO DAILY 12/24/20 08/21/21 07/09/21 21:00 History fluticasone propionate 115 2 puff INHALATION BID 12/24/20 08/21/21 07/10/21 11:00 History mcg-salmeterol 21 mcg/actuation HFA inhaler (Advair HFA) gabapentin 300 mg capsule 2 cap PO BEDTIME 12/24/20 08/21/21 07/10/21 21:00 History glipizide 5 mg-metformin 500 mg 2 tab PO BIDWM 12/24/20 08/21/21 07/10/21 11:00 History tablet montelukast 10 mg tablet 1 tab PO QPM 12/24/20 08/21/21 07/09/21 11:00 History umeclidinium 62.5 mcg/actuation 1 puff PO DAILY 12/24/20 08/21/21 07/10/21 11:00 History blister powder for inhalation (Incruse Ellipta) albuterol sulfate 2.5 mg INHALATION Q4H PRN 07/11/21 08/21/21 Unknown History lisinopril 20 1 tab PO DAILY 07/11/21 08/21/21 Unknown History mg-hydrochlorothiazide 12.5 mg tablet Physical Exam Vital Signs: Vital Signs: Last Vital Signs Temp 98 F 08/24/21 07:02 Pulse 105 H 08/24/21 08:21 Resp 16 08/24/21 08:21 BP 170/79 H 08/24/21 07:02 Pulse Ox 96 08/24/21 07:02 BMI result Body Mass Index 26.6 Const: General: comfortable HENMT: Other: Unremarkable Neck: Neck: Yes normal visual inspection Chest: Chest palpation & inspection: normal inspection of the chest Resp: Auscultation: clear to auscultation bilaterally Cardio: Palpation: normal PMI Heart sounds: S1 normal heart sound present, S2 normal heart sound present, no gallops, no murmurs and no rubs GI: Palpation (GI): Soft to palpation Back/Spine/Pelvis: Other: unremarkable Skin: Lesions: other Neuro: General: other Extrem: General: Yes other Psych: Mental Status: other Objective Labs and Meds Result diagrams: 08/24/21 02:59 08/24/21 02:59 Lab results: Laboratory Results - last 24 hr 08/23/21 08/23/21 08/23/21 05:56 11:25 16:36 WBC RBC Hgb Hct MCV MCH MCHC RDW Plt Count MPV Absolute Nucleated RBC Nucleated RBC % (auto) Sodium Potassium Chloride Carbon Dioxide Anion Gap BUN Creatinine Estim Creat Clear Calc Estimated GFR POC Glucose 288 H 575 H* Random Glucose Calcium Magnesium Total Creatine Kinase 53 Vancomycin Trough 08/23/21 08/23/21 08/24/21 19:49 23:55 02:39 WBC RBC Hgb Hct MCV MCH MCHC RDW Plt Count MPV Absolute Nucleated RBC Nucleated RBC % (auto) Sodium Potassium Chloride Carbon Dioxide Anion Gap BUN Creatinine Estim Creat Clear Calc Estimated GFR POC Glucose 429 H* 199 H 177 H Random Glucose Calcium Magnesium Total Creatine Kinase Vancomycin Trough 08/24/21 08/24/21 08/24/21 02:59 02:59 02:59 WBC 6.9 RBC 4.08 L Hgb 9.9 L Hct 33.2 L MCV 81.4 MCH 24.3 L MCHC 29.8 L RDW 15.9 Plt Count 242 MPV 10.7 Absolute Nucleated RBC 0.000 Nucleated RBC % (auto) 0.0 Sodium Cancelled 139 Potassium Cancelled 3.5 Chloride Cancelled 102 Carbon Dioxide Cancelled 28 Anion Gap Cancelled 13 BUN Cancelled 15 Creatinine Cancelled 0.74 Estim Creat Clear Calc Cancelled 84.3 Estimated GFR Cancelled > 60 POC Glucose Random Glucose Cancelled 183 H Calcium Cancelled 8.5 Magnesium 1.9 Total Creatine Kinase Vancomycin Trough 08/24/21 08/24/21 08/24/21 04:15 06:02 07:02 WBC RBC Hgb Hct MCV MCH MCHC RDW Plt Count MPV Absolute Nucleated RBC Nucleated RBC % (auto) Sodium Potassium Chloride Carbon Dioxide Anion Gap BUN Creatinine Estim Creat Clear Calc Estimated GFR POC Glucose 166 H 139 H 132 H Random Glucose Calcium Magnesium Total Creatine Kinase Vancomycin Trough 08/24/21 08:08 WBC RBC Hgb Hct MCV MCH MCHC RDW Plt Count MPV Absolute Nucleated RBC Nucleated RBC % (auto) Sodium Potassium Chloride Carbon Dioxide Anion Gap BUN Creatinine Estim Creat Clear Calc Estimated GFR POC Glucose Random Glucose Calcium Magnesium Total Creatine Kinase Vancomycin Trough 6.0 L ECG Interpretation: EKG with sinus tachycardia, 109/Min, nonspecific ST-T changes. Assessment and Plan (1) Atrial tachycardia: Status: Acute (2) Essential hypertension: Status: Acute Plan Telemetry reviewed. There are short runs of tachycardia which do not really look like VT. Could be atrial tachycardia from her COPD. Will review the echocardiogram when completed. Otherwise, to manage this we can try beta-blockers if COPD allows. Otherwise possibly switch the amlodipine to diltiazem. Ischemia workup can be considered as an outpatient. Her blood pressure is also quite high. Already on amlodipine, lisinopril/HCTZ. Could go up on the lisinopril/HCTZ dosing. Procedures Date of Service Date of Service: 08/24/21
--- NOTE | 2021-08-24 11:14 | CA_ITS ---
Transthoracic Echocardiogram Patient (Last, First, Middle): Keisha Chadwick, Gender: Female Date of : 1970 Age: 51 Procedure Date: 08/24/2021 Procedure Type: Transthoracic Echocardiogram Location: S3E Height: 160.02 cm Weight: 68.04 kg BSA: 1.71 m2 Heart Rate: bpm BP: 170 / 79 mmHg Regulatory Technician: VH/OT Referring MD: Chandana Dave MD Symptoms: atrial tachycardia Study Quality: Fair ECG Rhythm: Sinus Conclusions: - The left ventricular systolic function is normal. The visually estimated ejection fraction is between 60-65%. - There is mild calcification of the aortic valve. Findings Left Ventricle Normal left ventricular cavity size. There is mildly increased left ventricular wall thickness. The left ventricular systolic function is normal. The visually estimated ejection fraction is between 60-65%. There is no evidence of regional wall motion abnormalities. Diastolic function is indeterminate on the basis of available data. Right Ventricle There is normal right ventricular systolic function. Top-normal size. Atria The left atrium is moderately dilated. The right atrium is normal in size. Aortic Valve There is a normal trileaflet aortic valve. There is mild calcification of the aortic valve. There is no aortic valve stenosis. The mean gradient is 6 mmHg. There is no aortic valve regurgitation. Mitral Valve The mitral valve appears normal. There is trace mitral valve regurgitation. There is no mitral valve stenosis. Pulmonic Valve The pulmonic valve is likely normal. Tricuspid Valve Normal tricuspid valve structure. There is no tricuspid valve regurgitation. The pulmonary artery systolic pressure is normal. Great Vessels The asc aorta is normal in size. Venous The inferior vena cava is normal in size and collapses less than 50% with inspiration. Pericardium/Pleural There is no evidence of pericardial effusion. Prior Study Comparison No prior study available for comparison. Measurements 2D Linear Measurements IVSd: 1.13 0.6-0.9/0.6-1.0 cm LVIDd: 4.17 3.9-5.3/4.2-5.9 cm LVIDd Index: 2.44 2.4-3.2/2.2-3.1 cm/m2 LVIDs: 3.11 2.0-3.6 cm LVPWd: 1.10 0.7-1.1 cm LA Diam: 3.70 2.7-3.8/3.0-4.0 cm LAIDs Index: 2.16 1.5-2.3 cm/m2 LV Mass: 197.22 67-162/88-224 g LV Mass Index: 115.33 43-95/49-115 g/m2 LVOT Diam: 2.00 3.0+(-)1.3 cm Mitral Valve MV Pk E: 1.07 MV PK A: 1.23 MV Decel Time: 131.00 E/A: 0.90 E'Lateral: 17.00 E/E' Lat: 6.30 PHT: 38.00 MVA PHT: 5.79 Decel [place]: 8.17 Aortic Valve AoV Pk Bryant: 1.64 AoV Mn Bryant: 1.13 AoV VTI: 0.32 AoV Pk Grad: 11.00 Aov Mn Grad: 6.00 CLARA Cont.VTI: 2.23 LVOT LVOT Pk Bryant: 1.06 LVOT Mn Bryant: 0.75 LVOT VTI: 0.23 LVOT Pk Grad: 4.00 LVOT Mn Grad: 3.00 LVOT Diam: 2.00 LVOT Area: 3.14 Diastolic Function MV Pk E: 1.07 MV Pk A: 1.23 E/A: 0.90 E' Laterial: 17.00 E/E' Lat: 6.30 Right Ventricle TAPSE (mm): 27.00 TVS' Bryant: 18.00 Tricuspid Valve TR Pk Bryant: 1.57 TR Pk Grad: 10.00 RA Press: 8.00 Great Vessels Aorta Sinus of Valsalva: 2.70 2.0-3.5 cm Ao Asc: 2.80 2.1-3.4 cm Pulmonary Valve PV Pk Bryant: 1.37 Peak PV Grad: 8.00 Updated in Other Vendor System with Status of Final Chandana Dave MD electronically signed on 08/24/2021 3:58:27 PM with status of Final
[2021-08-24 11:26] VITALS: PULSE 101; O2SAT 96
[2021-08-24] MEDS: DAPTOmycin 600 MG in 0.9 % Sodium Chloride 50 ML 101.73 MG IV (15:29)
[2021-08-24 15:44] VITALS: BP 171/74; PULSE 105; RESP 19; TEMP 36.7; O2SAT 95
--- NOTE | 2021-08-24 15:44 | MHC.CM.PN ---
PATIENT TO COME TO SHORT STAY AT [facility] FOR [facility] DAYS. CHAIR TIME IS 1330. PATIENT AND SPOUSE ASHLEY (IN ROOM) AWARE OF PLAN. PATIENT IS AWARE TO FOLLOW UP WITH HER PCP AND ATTEMPT TO SECURE [facility] FOR THE REMAINDER OF IV ABX TREATMENT. RN AWARE OF PLAN.
== END 2021-08-24 16:30 | disposition home or self-care (01) | DRG 720 ==
LOC: HO.ED 07:13 → HO.EDOVER 10:37 → HO.S3 08-22 12:11
PROVIDERS: Emergency Medicine; Hospitalist; Admitting Provider Internal Medicine; Emergency Provider Emergency Medicine; Visit Provider Internal Medicine
DX: A41.9 Sepsis, unspecified organism (principal); E11.42 Type 2 diabetes mellitus with diabetic polyneuropathy; J44.1 Chronic obstructive pulmonary disease with (acute) exacerbation; E11.621 Type 2 diabetes mellitus with foot ulcer; L03.116 Cellulitis of left lower limb; M86.172 Other acute osteomyelitis, left ankle and foot; L02.612 Cutaneous abscess of left foot; L97.529 Non-pressure chronic ulcer of other part of left foot with unspecified severity; E11.65 Type 2 diabetes mellitus with hyperglycemia; E11.69 Type 2 diabetes mellitus with other specified complication; F17.210 Nicotine dependence, cigarettes, uncomplicated; I10 Essential (primary) hypertension; Z20.822 Contact with and (suspected) exposure to COVID-19; Z88.0 Allergy status to penicillin; Z79.82 Long term (current) use of aspirin; Z79.899 Other long term (current) drug therapy
CPT/HCPCS: 36415; 36573; 71045; 73701; 73720; 80048; 80076; 80202; 82550; 82947; 83036; 83605; 83735; 85025; 85027; 85610; 85652; 86140; 87040; 87635; 93005; 93306; 93970; 96361; 96365; 96366; 96367; 96375; 96376; 99285; A9585; C1751; J0878; J1650; J2270; J2543; J2930; J3370; J3475; Q9967

== ENCOUNTER 2021-08-25 13:04 | Outpatient (REF) | payer MEDICAID, SELFPAY | END 2021-08-25 13:05 | disposition home or self-care (01) | LOC: HO.MDS 13:04 | PROVIDERS: Visit Provider Internal Medicine | DX: M86.8X7 Other osteomyelitis, ankle and foot (principal); Z45.2 Encounter for adjustment and management of vascular access device | CPT/HCPCS: 96365; J0878 ==

== ENCOUNTER 2021-08-26 13:17 | Outpatient (REF) | payer MEDICAID, SELFPAY | END 2021-08-26 13:18 | disposition home or self-care (01) | LOC: HO.MDS 13:17 | PROVIDERS: PCP Physician Assistant Medical; Visit Provider Internal Medicine | DX: M86.8X7 Other osteomyelitis, ankle and foot (principal) | CPT/HCPCS: 96365; J0878 ==

== ENCOUNTER 2021-08-27 12:32 | Outpatient (REF) | payer MEDICAID, SELFPAY | END 2021-08-27 12:33 | disposition home or self-care (01) | LOC: HO.MDS 12:32 | PROVIDERS: PCP Physician Assistant Medical; Visit Provider Internal Medicine | DX: M86.8X7 Other osteomyelitis, ankle and foot (principal); Z45.2 Encounter for adjustment and management of vascular access device | CPT/HCPCS: 96365; J0878 ==

== ENCOUNTER 2021-08-27 13:34 | Outpatient (REF) | payer MEDICAID, SELFPAY ==
[2021-08-27 14:22] LABS: Estimated Average Glucose 243 mg/dL; Hemoglobin A1c % 10.1 %
[2021-08-27 14:43] LABS: Alanine Aminotransferase 17 U/L (0-31); Albumin Level 3.4 g/dL (3.5-5.0); Alkaline Phosphatase 81 U/L (39-117); Anion Gap 13 (12-20); Aspartate Amino Transferase 12 U/L (5-31); Bilirubin Total 0.4 mg/dL (0.0-1.0); Blood Urea Nitrogen 8 mg/dL (9-16); Calcium 9.1 mg/dL (8.4-10.2); Carbon Dioxide 27 mmol/L (22-29); Chloride 99 mmol/L (96-108); Estimated Glomerular Filt Rate > 60; Glucose Random 196 mg/dL (60-115); Potassium 4.3 mmol/L (3.3-5.1); Sodium 135 mmol/L (135-145)
== END 2021-08-27 13:35 | disposition home or self-care (01) ==
LOC: HO.LAB 13:34
PROVIDERS: PCP Nurse Practitioner Family; Visit Provider Nurse Practitioner Family
DX: E11.9 Type 2 diabetes mellitus without complications (principal)
CPT/HCPCS: 36415; 80053; 83036

== ENCOUNTER 2021-08-28 09:24 | Outpatient (REF) | payer MEDICAID, SELFPAY | END 2021-08-28 09:25 | disposition home or self-care (01) | LOC: HO.MDS 09:24 | PROVIDERS: PCP Nurse Practitioner Family; Visit Provider Internal Medicine | DX: M86.8X7 Other osteomyelitis, ankle and foot (principal); Z45.2 Encounter for adjustment and management of vascular access device | CPT/HCPCS: 96365; J0878 ==

== ENCOUNTER 2021-08-29 08:38 | Outpatient (REF) | payer MEDICAID, SELFPAY | END 2021-08-29 08:39 | disposition home or self-care (01) | LOC: HO.MDS 08:38 | PROVIDERS: PCP Nurse Practitioner Family; Visit Provider Internal Medicine | DX: M86.8X7 Other osteomyelitis, ankle and foot (principal); Z45.2 Encounter for adjustment and management of vascular access device | CPT/HCPCS: 96365; J0878 ==

== ENCOUNTER 2021-08-30 12:40 | Outpatient (REF) | payer MEDICAID, SELFPAY | END 2021-08-30 12:41 | disposition home or self-care (01) | LOC: HO.MDS 12:40 | PROVIDERS: PCP Physician Assistant Medical; Visit Provider Internal Medicine | DX: M86.8X7 Other osteomyelitis, ankle and foot (principal); Z45.2 Encounter for adjustment and management of vascular access device | CPT/HCPCS: 96365; J0878 ==

== ENCOUNTER 2021-08-31 12:28 | Outpatient (REF) | payer MEDICAID, SELFPAY | END 2021-08-31 12:29 | disposition home or self-care (01) | LOC: HO.MDS 12:28 | PROVIDERS: PCP Pediatrics; Visit Provider Internal Medicine | DX: M86.8X7 Other osteomyelitis, ankle and foot (principal); Z45.2 Encounter for adjustment and management of vascular access device | CPT/HCPCS: 96365; J0878 ==

== ENCOUNTER 2021-09-01 12:40 | Outpatient (REF) | payer MEDICAID, SELFPAY | END 2021-09-01 12:41 | disposition home or self-care (01) | LOC: HO.MDS 12:40 | PROVIDERS: PCP Nurse Practitioner Family; Visit Provider Internal Medicine | DX: M86.8X7 Other osteomyelitis, ankle and foot (principal); Z45.2 Encounter for adjustment and management of vascular access device | CPT/HCPCS: 96365; J0878 ==

== ENCOUNTER 2021-09-02 10:05 | Outpatient (REF) | payer MEDICAID, SELFPAY | END 2021-09-02 10:06 | disposition home or self-care (01) | LOC: HO.MDS 10:05 | PROVIDERS: PCP Nurse Practitioner Family; Visit Provider Internal Medicine | DX: M86.8X7 Other osteomyelitis, ankle and foot (principal); Z45.2 Encounter for adjustment and management of vascular access device | CPT/HCPCS: 99212 ==

== ENCOUNTER 2021-09-03 14:52 | Outpatient (REF) | payer MEDICAID, SELFPAY | END 2021-09-03 14:53 | disposition home or self-care (01) | LOC: HO.MDS 14:52 | PROVIDERS: PCP Nurse Practitioner Family; Visit Provider Internal Medicine | DX: M86.8X7 Other osteomyelitis, ankle and foot (principal) | CPT/HCPCS: 99212 ==

== ENCOUNTER 2021-09-07 14:12 | Outpatient (REF) | payer MEDICAID, SELFPAY | END 2021-09-07 14:13 | disposition home or self-care (01) | LOC: HO.RADIR 14:12 | PROVIDERS: PCP Nurse Practitioner Family; Visit Provider Internal Medicine | DX: Z13.89 Encounter for screening for other disorder (principal) ==

== ENCOUNTER → 2021-09-13 08:39 | Outpatient (REF) | payer MEDICAID, SELFPAY | LOC: HO.CARD 08:39 | PROVIDERS: Visit Provider Internal Medicine | DX: Z13.89 Encounter for screening for other disorder (principal) ==

== ENCOUNTER 2021-09-22 10:46 | Day surgery (SDC) | payer MEDICAID, SELFPAY ==
[2021-09-14 11:20] VITALS: BMI 29.9
--- NOTE | 2021-09-14 12:54 | HO.ANESPROP2 ---
Documented by User: Ella Monroy NP 09/17/21 14:50 HPI - Anesthesia Eval Consult details Narrative: 51yo F for Left 2nd Toe Amputation C admit 08/21-08/24/21 for COPD exac, osteomyelitis, uncontrolled dm, uncontrolled htn PCP clearance 09/17/21 - documentation pending [facility] Active Problems Active Problems: All Active Problems (Updated 09/14/21 @ 11:19 by Shahrzad Goodrich RN) Heart problem (Acute) Nausea and vomiting (Acute) Oral thrush (Acute) Dehydration (Acute) Abnormal CT of the abdomen (Acute) Diabetic toe ulcer (Acute) Cellulitis (Acute) Acute pain of left foot (Acute) Hyperglycemia (Acute) Osteomyelitis (Acute) Atherosclerotic cardiovascular disease (Acute) COPD (chronic obstructive pulmonary disease) (Acute) Asthma (Acute) Past Medical History Medical History (Updated 09/15/21 @ 00:04 by Aron Packer) Asthma COPD (chronic obstructive pulmonary disease) COVID-19 vaccine series completed Diabetes Diabetic toe ulcer Essential hypertension GERD (gastroesophageal reflux disease) Hypertension Family History Family History Mother Hx of CABG Sister CAD (coronary artery disease) Surgical History Surgical History (Updated 09/14/21 @ 11:16 by Shahrzad Goodrich RN) History of esophagogastroduodenoscopy (EGD) Social History Social History Household Members: Family Housing: Apartment Do you presently have visiting nurse or other home services: No Alcohol intake: unknown Patient Tobacco Use Status: Current everyday Tobacco user Tobacco use type: Cigarette Cigarettes Per Day: 10 Years Smoked: 43 e-Cigarette/Vaping Use: Never Used Second Hand Smoke Exposure: Yes Advance Directives Date on File: 12/28/20 service: No Current occupational status: unemployed Meds Allergies Allergy/AdvReac Type Severity Reaction Status Date / Time Penicillins [PENICILLINS] Allergy Severe RASH Verified 09/03/21 14:22 amoxicillin [AMOXICILLIN] Allergy Intermediate HIVES Verified 09/03/21 14:22 Home Medications Medication Instructions Recorded Confirmed Last Taken Type albuterol sulfate 90 mcg/actuation 2 puff PO Q4H PRN 12/24/20 09/22/21 09/22/21 10:59 History aerosol inhaler (ProAir HFA) aspirin 81 mg tablet,delayed 1 tab PO DAILY 12/24/20 09/14/21 09/22/21 History release atorvastatin 10 mg tablet 1 tab PO DAILY 12/24/20 09/14/21 07/09/21 21:00 History fluticasone propionate 115 2 puff INHALATION BID 12/24/20 09/14/21 07/10/21 11:00 History mcg-salmeterol 21 mcg/actuation HFA inhaler (Advair HFA) gabapentin 300 mg capsule 2 cap PO BEDTIME 12/24/20 09/14/21 07/10/21 21:00 History glipizide 5 mg-metformin 500 mg 2 tab PO BID 12/24/20 09/14/21 09/22/21 History tablet montelukast 10 mg tablet 1 tab PO QPM 12/24/20 09/14/21 07/09/21 11:00 History umeclidinium 62.5 mcg/actuation 1 puff PO DAILY 12/24/20 09/14/21 09/22/21 History blister powder for inhalation (Incruse Ellipta) albuterol sulfate 2.5 mg INHALATION Q4H PRN 07/11/21 09/14/21 Unknown History lisinopril 20 1 tab PO DAILY 07/11/21 09/14/21 09/22/21 History mg-hydrochlorothiazide 12.5 mg tablet Exam Exam Date and Time: September 14, 2021 1254 Height,Weight and Vital Signs: Height 5 ft 3 in Weight 76.657 kg Pertinent Lab Results Pertinent Lab Results: Laboratory Tests 08/24/21 08/27/21 02:59 13:55 WBC 6.9 Hgb 9.9 L Hct 33.2 L Plt Count 242 Sodium 135 Potassium 4.3 D Chloride 99 Carbon Dioxide 27 BUN 8 L Creatinine 0.69 Narrative Narrative: EKG 08/2021 Vent. Rate : 109 BPM ? ? Atrial Rate : 109 BPM ?? P-R Int : 136 ms? QRS Dur : 078 ms ? ? QT Int : 354 ms ? ? ? P-R-T Axes : 075 051 099 degrees ?? QTc Int : 476 ms ? Sinus tachycardia Nonspecific T wave abnormality Abnormal ECG When compared with ECG of 16-ADDY-2021 14:10, Nonspecific T wave abnormality now evident in Lateral leads ECHO 08/2021 Conclusions: - The left ventricular systolic function is normal.? The visually estimated ejection fraction is between 60-65%. ? - There is mild calcification of the aortic valve.? Assessment and Plan Assessment Anesthesia Assessment: Chart Reviewed Documented by User: Ahmet Rocha MD 09/22/21 16:10 HPI - Anesthesia Eval Consult details Narrative: 51yo F for Left 2nd Toe Amputation [facility] [place] admit 08/21-08/24/21 for COPD exac, osteomyelitis, uncontrolled dm, uncontrolled htn PCP clearance 09/17/21 PMFSH Past Medical History Medical History (Updated 09/15/21 @ 00:04 by Aron Packer) Asthma COPD (chronic obstructive pulmonary disease) COVID-19 vaccine series completed Diabetes Diabetic toe ulcer Essential hypertension GERD (gastroesophageal reflux disease) Hypertension Family History Family History Mother Hx of CABG Sister CAD (coronary artery disease) Family history of problems with anesthesia: No Surgical History Surgical History (Updated 09/14/21 @ 11:16 by Shahrzad Goodrich RN) History of esophagogastroduodenoscopy (EGD) History of Problems with Anesthesia: No Social History Social History Household Members: Family Housing: Apartment Do you presently have visiting nurse or other home services: No Alcohol intake: unknown Patient Tobacco Use Status: Current everyday Tobacco user Tobacco use type: Cigarette Cigarettes Per Day: 10 Years Smoked: 43 e-Cigarette/Vaping Use: Never Used Second Hand Smoke Exposure: Yes Advance Directives Date on File: 12/28/20 service: No Current occupational status: unemployed Meds Allergies Allergy/AdvReac Type Severity Reaction Status Date / Time Penicillins [PENICILLINS] Allergy Severe RASH Verified 09/03/21 14:22 amoxicillin [AMOXICILLIN] Allergy Intermediate HIVES Verified 09/03/21 14:22 Home Medications Medication Instructions Recorded Confirmed Last Taken Type albuterol sulfate 90 mcg/actuation 2 puff PO Q4H PRN 12/24/20 09/22/21 09/22/21 10:59 History aerosol inhaler (ProAir HFA) aspirin 81 mg tablet,delayed 1 tab PO DAILY 12/24/20 09/14/21 09/22/21 History release atorvastatin 10 mg tablet 1 tab PO DAILY 12/24/20 09/14/21 07/09/21 21:00 History fluticasone propionate 115 2 puff INHALATION BID 12/24/20 09/14/21 07/10/21 11:00 History mcg-salmeterol 21 mcg/actuation HFA inhaler (Advair HFA) gabapentin 300 mg capsule 2 cap PO BEDTIME 12/24/20 09/14/21 07/10/21 21:00 History glipizide 5 mg-metformin 500 mg 2 tab PO BID 12/24/20 09/14/21 09/22/21 History tablet montelukast 10 mg tablet 1 tab PO QPM 12/24/20 09/14/21 07/09/21 11:00 History umeclidinium 62.5 mcg/actuation 1 puff PO DAILY 12/24/20 09/14/21 09/22/21 History blister powder for inhalation (Incruse Ellipta) albuterol sulfate 2.5 mg INHALATION Q4H PRN 07/11/21 09/14/21 Unknown History lisinopril 20 1 tab PO DAILY 07/11/21 09/14/21 09/22/21 History mg-hydrochlorothiazide 12.5 mg tablet Exam Airway Mallampati Class: III TM Dist: >3cm Neck ROM: Full Loose/Missing/Broken Teeth: Yes (Missing ) Heart: S1 S2 Lungs: b/l breath sounds Assessment and Plan Assessment Anesthesia Assessment: Anesthesia Plan Discussed Final Anesthetic Review Family History of Problems with Anesthesia: No History of Problems with Anesthesia: No NPO: Yes ASA Class: III Final Preanesthetic Review: No Changes in Pt Med Stat, Meds/Allgs Chart Reviewed, Consent Obtained/Reviewed and Anes Risks/Benef Reviewed Patient Risk: Intermediate Procedure Risk: Intermediate Anesthetic Plan Anesthetic Plan: MAC: Disposition: Standard PACU
[2021-09-22] VITALS (7 sets, daily range): BP systolic 122–129; BP diastolic 53–71; PULSE 88–110; RESP 16–18; TEMP 36.3–36.6; O2SAT 95–98
[2021-09-22 11:18] LABS: Glucose, Whole Blood 97 mg/dL (60-115)
[2021-09-22] MEDS: Lactated Ringers 1,000 ML 100 ML IVCONT (11:33)
[2021-09-22] MEDS: vancomycin HCL 1,000 MG in 0.9 % Sodium Chloride 250 ML 270 MG IV (11:33)
--- NOTE | 2021-09-22 11:43 | MHC.SHP ---
Pre-Procedural Eval Section A Date of Service: 09/22/21 The patient is an INPATIENT: No Changes since office visit: Yes Patient answered all questions; No Cold of Flu in the past 2 weeks, No New Medical Problems and No Changes in Medication The History & Physical has been completed within 30 days and I have reviewed it.: Yes Section B Chief Complaint: Osteomyelitis,type II diabetes,non pressure ulcer Allergies: Allergies Allergy/AdvReac Type Severity Reaction Status Date / Time Penicillins [PENICILLINS] Allergy Severe RASH Verified 09/03/21 14:22 amoxicillin [AMOXICILLIN] Allergy Intermediate HIVES Verified 09/03/21 14:22 Plan Diagnosis/Plan: Unchanged I have reviewed the history and physical and performed a pertinent physical examination on my patient. No changes have occurred unless specified.
--- NOTE | 2021-09-22 12:47 | W.PM.OPN ---
Operative Note Operative Note Date of Service: 09/22/21 Narrative: Preoperative diagnosis:Osteomyelitis, left 2nd toe Postoperative diagnosis:same Procedure:amputation of left second toe Surgeon: Luis Miguel Cantu MD Interior Design Professional: Clarisa Morrison PA-C Anesthesia:MAC Indications for procedure:51 year old female with previous admission for osteomyelitis of the left second toe returning today for amputation of the left second toe. MRI revealed osteo involving the proximal phalanx and distal metatarsal head. Operative findings:obvious osteomyelitis of the left second toe involving the metatarsal head and proximal phalanx but no evidence of abscess cavity remaining. Metatarsal proximal to the distal head was solid without evidence of osteomyelitis. Specimen: Left 2nd toe Estimated blood loss: 10 mL Complications: None Procedure details: Patient was brought to the OR placed in a supine position. After administering light sedation the patient's left foot was prepped with Betadine and draped in a sterile fashion. A surgical time-out was called the consent confirmed. Patient received preoperative antibiotics and Venodyne boots were in place. Local anesthesia consisting of 1% lidocaine was infiltrated in the webspace between the 2nd and great toe as well as the 3rd and 2nd toe to create a digital block. An elliptical incision was then made at the base of the 2nd toe and extended up they anterior surface of the metatarsal. Incision was carried down through subcutaneous tissue using electrocautery and carried down to bone. The toe was easily able to be removed using electrocautery due to the osteomyelitis. This was passed off as specimen. Dissection was continued along the metatarsal distal head. The bone was found to be very soft and obviously infected. Rongeur was used to dissect the remaining fragments of bone from the subcutaneous tissue. Resection was continued more proximal to apparent healthy bowel. Wounds were then irrigated with saline solution and suctioned dry. Were checked for hemostasis which was controlled using electrocautery. Deep subcutaneous tissue was then reapproximated using interrupted 3-0 Polysorb sutures. Quarter-inch packing was then placed above and below and the skin reapproximated using interrupted 3-0 nylon sutures. Sterile dressings consisting of fluff gauze, Kerlix, and Bruno bandage was then applied. The patient tolerated the procedure well. Sponge, instrument, and needle counts were reported as correct. Patient was transferred to PACU in stable condition.
[2021-09-22] MEDS: Acetaminophen 325 MG TABLET 650 MG PO (13:07)
[2021-09-22] MEDS: oxyCODONE HCl Immed Release 5 MG TABLET PO (13:08)
[2021-09-22] MEDS: fentaNYL citrate/PF 100 MCG/2 ML VIAL 25 MCG IVPUSH ×2 (13:11→13:16)
== END 2021-09-22 14:36 | disposition home or self-care (01) ==
PROVIDERS: PCP Nurse Practitioner Family; Visit Provider Surgery
PROC: (CPT 28810; principal; 2021-09-22 12:30)
DX: E11.621 Type 2 diabetes mellitus with foot ulcer (principal); M86.672 Other chronic osteomyelitis, left ankle and foot; L97.529 Non-pressure chronic ulcer of other part of left foot with unspecified severity; Z79.84 Long term (current) use of oral hypoglycemic drugs; J44.9 Chronic obstructive pulmonary disease, unspecified; I10 Essential (primary) hypertension; F17.210 Nicotine dependence, cigarettes, uncomplicated; Z88.0 Allergy status to penicillin
CPT/HCPCS: 28810; 82947; 88305; 88311; J2250; J3010; J3370

== ENCOUNTER → 2021-09-28 09:23 | Outpatient (BNVA) | payer MEDICAID, SELFPAY | PROVIDERS: PCP Nurse Practitioner Family; Visit Provider Surgery | DX: Z47.81 Encounter for orthopedic aftercare following surgical amputation (principal); Z89.422 Acquired absence of other left toe(s) | CPT/HCPCS: 99212 ==

== ENCOUNTER 2021-10-04 | Outpatient (REF) | payer MEDICAID, SELFPAY | END 2021-10-04 00:01 | LOC: CF | PROVIDERS: PCP Nurse Practitioner Family; Visit Provider Internal Medicine | DX: M86.9 Osteomyelitis, unspecified (principal); F17.210 Nicotine dependence, cigarettes, uncomplicated; Z89.422 Acquired absence of other left toe(s) | CPT/HCPCS: 99212 ==

== ENCOUNTER → 2021-10-05 09:18 | Outpatient (BNVA) | payer MEDICAID, SELFPAY | PROVIDERS: Visit Provider Surgery | DX: Z47.81 Encounter for orthopedic aftercare following surgical amputation (principal); F17.210 Nicotine dependence, cigarettes, uncomplicated; Z89.422 Acquired absence of other left toe(s) | CPT/HCPCS: 99212 ==

== ENCOUNTER → 2021-10-28 12:45 | Outpatient (BNVA) | payer MEDICAID, SELFPAY | PROVIDERS: Visit Provider Surgery | DX: M86.9 Osteomyelitis, unspecified (principal) | CPT/HCPCS: 99212 ==

== ENCOUNTER 2021-10-31 04:19 | Inpatient (IN) | payer MEDICAID, SELFPAY ==
[2021-10-31] VITALS (13 sets, daily range): BP systolic 127–176; BP diastolic 61–103; PULSE 97–110; RESP 16–22; TEMP 36.3–38.2; O2SAT 94–99; BMI 25.7
--- NOTE | ~2021-10-31 | CT_ITS ---
EXAMINATION: CT SCAN OF THE FOOT WITHOUT CONTRAST, LEFT CLINICAL INFORMATION: Evaluate for osteomyelitis 2nd metatarsal. COMPARISON: X-ray of the left foot December 2020. MRI of the left foot 08/21/2001. CT left foot 08/21/2021. TECHNIQUE: CT scan of the left foot was performed without contrast with reconstruction imaging performed at the acquisition workstation. FINDINGS: SECOND RAY: There appears to have been interval surgery since the prior MRI and CT examination in August with resection of the distal end of the 2nd ray at the level of the distal metatarsal. There is some periosteal reaction or callus formation along the remaining distal end of the bone. There are also multiple small osseous fragments distal to the end of the bone. These fragments could be sequela of the prior surgery. However, this could also reflect progressing fragmentation of the postsurgically altered metatarsal. There is increased soft tissue density distal and plantar to the distal end of the 2nd metatarsal extending to the subcutaneous soft tissues. Subtle irregularity of the skin or surface of the subcutaneous soft tissues but I do not see a definite ulceration. Correlate clinically. I do not see gas in the soft tissues or bone. There is generalized abnormal fluid-like signal within the subcutaneous soft tissues circumferentially about the foot compatible with edema, cellulitis, or a combination of these. Some minimal calcification in the soft tissues plantar and medial to the flexor hallucis longus tendon at the level of the proximal metatarsal likely without clinical significance, perhaps dystrophic, unchanged compared to the prior examination. 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 Mild osteoarthritis of the 1st metatarsophalangeal joint. CT/CT foot LT wo con IMPRESSION: Postsurgical changes related to resection of the distal portion of the 2nd ray at the level of the distal 2nd metatarsal. There is overlying soft tissue abnormality suspicious for cellulitis versus postsurgical result. There is also periosteal reaction along the remaining distal end of the metatarsal, nonspecific. This could reflect reactive change from surgery but can also be seen with osteomyelitis. Additionally, there are multiple osseous fragments distal to the visible end of the metatarsal of uncertain significance and etiology. This could simply reflect postsurgical result. However, cannot exclude new bone fragmentation related to osteomyelitis of the surgically altered 2nd ray/metatarsal. Perhaps correlation with surgical details could help differentiate these possibilities and help determine the likelihood of osteomyelitis. Stable osteoarthritis. Generalized abnormality in the subcutaneous soft tissues compatible with edema, cellulitis, or a combination of these
--- NOTE | 2021-10-31 06:25 | ED_ITS ---
HPI - Extremity Problem General Chief complaint: Extremity Problem Stated complaint: toe amputated(L foot) in pain Time Seen by Provider: 10/31/21 06:14 Source: patient Mode of arrival: wheelchair Limitations: no limitations History of Present Illness HPI Narrative: Patient comes emergency room complaining of severe left-sided foot pain. Patient had a 2nd toe amputation on 09/22/2021. Patient states that for the last few days, her foot has been getting very red, swollen, tender to touch, now she is unable to walk. Patient had an office visit with Dr. Cantu 3 days ago, who discussed with the patient that he recommended to have her getting admitted to the hospital for IV antibiotics but patient declined. Patient was given p.o. doxycycline. Patient denies fever chills, but her foot keeps getting more swollen and it is very tender, now she has noticed that it is draining pus from the plantar aspect, proximal to them incision site which had been previously healing well Related Data Home Medications Medication Instructions Recorded Confirmed albuterol sulfate 90 mcg/actuation 2 puff PO Q4H PRN 12/24/20 10/28/21 aerosol inhaler (ProAir HFA) aspirin 81 mg tablet,delayed 1 tab PO DAILY 12/24/20 10/28/21 release atorvastatin 10 mg tablet 1 tab PO DAILY 12/24/20 10/28/21 fluticasone propionate 115 2 puff INHALATION BID 12/24/20 10/28/21 mcg-salmeterol 21 mcg/actuation HFA inhaler (Advair HFA) gabapentin 300 mg capsule 2 cap PO BEDTIME 12/24/20 10/28/21 glipizide 5 mg-metformin 500 mg 2 tab PO BID 12/24/20 10/28/21 tablet montelukast 10 mg tablet 1 tab PO QPM 12/24/20 10/28/21 umeclidinium 62.5 mcg/actuation 1 puff PO DAILY 12/24/20 10/28/21 blister powder for inhalation (Incruse Ellipta) albuterol sulfate 2.5 mg INHALATION Q4H PRN 07/11/21 10/28/21 lisinopril 20 1 tab PO DAILY 07/11/21 10/28/21 mg-hydrochlorothiazide 12.5 mg tablet Previous Rx's Medication Instructions Recorded amlodipine 10 mg tablet 10 mg PO DAILY 30 Days #30 tab 12/27/20 hydralazine 25 mg tablet 25 mg PO TID 30 Days #90 tab 12/27/20 nystatin 100,000 unit/mL oral 400,000 unit PO QID 7 Days #112 ml 12/27/20 suspension cyclobenzaprine 10 mg tablet 10 mg PO TID PRN #10 tab 02/07/21 lidocaine 5 % topical patch 1 patch TOPICAL DAILY #15 ea 02/07/21 (Lidoderm) daptomycin 350 mg intravenous 600 mg IV Q24H #40 ea 08/24/21 solution doxycycline hyclate 100 mg capsule 100 mg PO BID 30 Days #60 cap 09/03/21 ibuprofen 600 mg tablet 600 mg PO TID PRN #30 tab 10/28/21 Allergies Allergy/AdvReac Type Severity Reaction Status Date / Time Penicillins [PENICILLINS] Allergy Severe RASH Verified 10/31/21 04:32 amoxicillin [AMOXICILLIN] Allergy Intermediate HIVES Verified 10/31/21 04:32 Review of Systems Review of Systems: Constitutional : No Weight loss, No Fever, No Chills, No Night Sweats, No Fatigue, No Malaise ENT/Mouth : No Hearing loss, No Ear Pain, No Nasal Congestion, No Sinus Pain, No Hoarseness, No sore throat, No Rhinorrhea, No Swallowing Difficulty Eyes: No Eye Pain, No Swelling, No Redness, No Foreign Body, No Discharge, No Vision Changes Cardiovascular : No Chest Pain, No SOB, No Dyspnea on Exertion, No Orthopnea, No Edema, No Palpitations Respiratory : No Cough, No Sputum, No Wheezing, No Smoke Exposure, No Dyspnea Gastrointestinal : No Nausea, No Vomiting, No Diarrhea, No Constipation, No abdo adwoa Pain, No Hematochezia, No Melena Genitourinary : no irregular bleeding, No Dysuria, No Urinary Frequency, No Hematuria, No Urinary Incontinence, No Urgency, No Flank Pain, No Urinary Flow Changes, No Hesitancy Musculoskeletal : No joint pain, complaining of left foot pain, see below Skin : Draining pus from the plantar aspect of the left foot, but becoming more red, swollen, very tender to touch, unable to bear weight Neuro : No Weakness, No Numbness, No Paresthesias, No Loss of Consciousness, No Dizziness, No Headache Psych : No Anxiety/Panic, No Depression, No SI/HI/AH/VH, No Social Issues, Heme/Lymph: No Bruising, No Bleeding,No Lymphadenopathy Endocrine : No Polyuria, No Polydipsia, No Temperature Intolerance [facility] Past Medical History Medical History Asthma COPD (chronic obstructive pulmonary disease) COVID-19 vaccine series completed Diabetes Diabetic toe ulcer Essential hypertension GERD (gastroesophageal reflux disease) Hypertension Surgical History History of esophagogastroduodenoscopy (EGD) History of toe surgery (09/22/21) Family History Family History Mother Hx of CABG Sister CAD (coronary artery disease) Social History Social History Household Members: Family Housing: Apartment Do you presently have visiting nurse or other home services: No Alcohol intake: unknown Patient Tobacco Use Status: Current everyday Tobacco user Tobacco use type: Cigarette Cigarettes Per Day: 10 Years Smoked: 43 e-Cigarette/Vaping Use: Never Used Second Hand Smoke Exposure: Yes Advance Directives: No Advance Directives Information Provided: Yes Advance Directives Date on File: 12/28/20 service: No Current occupational status: unemployed Physical Exam Vital Signs: Vital Signs: Last Vital Signs Temp 98.4 F 10/31/21 04:34 Pulse 110 H 10/31/21 04:34 Resp 22 H 10/31/21 04:34 BP 158/88 H 10/31/21 04:34 Pulse Ox 99 10/31/21 04:34 BMI result Body Mass Index 25.7 Const: Other: Appearance: Alert. Oriented X3. No acute distress. Eyes: Pupils equal, round and reactive to light. ENT: Pharynx normal. Neck: Normal inspection. Neck supple. No lymph nodes noted. No crepitus CVS: Normal heart rate and rhythm. Pulses normal. Normal S1 and S2 Respiratory: No respiratory distress. Breath sounds normal. No Wheezing. No rales Abdomen: Soft and nontender. No rigidity. No distention. Skin: Skin warm and dry. See below Extremities: Patient's left foot is swollen, warm to touch, erythematous from the toes to the ankle, 2nd toe missing (status post amputation), pus drainage present plantar aspect, proximal to the surgical site Neuro: Oriented X 3. No motor deficit. No sensory deficit. Moving all extremit ies. No slurred speech. CN 2 through 12 grossly intact Psych: calm, cooperative, normal affect Course Course Course Narrative: Patient is getting IV fluids, vancomycin, clindamycin. In the patient's distal of allergies penicillin is listed, patient states that she swells up. Patient's blood pressure is stable, sepsis is not suspected. All of her labs and CT scan are pending. Patient does have cellulitis, is possible that patient may have osteomyelitis which she has had before. Anticipating that patient will need to be admitted and will need surgery consult. Sign-out given to Dr. Garnett [facility] - Extremity (Nontraumatic) Lab Data Result diagrams: 10/31/21 06:34 10/31/21 06:34 Discharge Plan Discharge Clinical Impression: Cellulitis Patient Disposition: Admitted As Inpatient
[2021-10-31 06:44] LABS: MANUAL DIFF FLAG NO
[2021-10-31 06:45] LABS: Basophils Absolute Auto 0.1 X10*3/uL (0.0-0.2); Basophils Percent Auto 0.3 % (0-2); Eosinophils Absolute Auto 0.1 X10*3/uL (0.0-0.4); Eosinophils Percent Auto 0.5 % (0-4); Hematocrit 36.3 % (37.0-47.0); Hemoglobin 11.3 g/dl (12.0-16.0); Imm Gran Abs Auto 0.09 X10*3/uL (0.00-0.03); Imm Gran Pct Auto 0.6 % (0.0-0.4); Lymphocytes Absolute Auto 1.9 X10*3/uL (1.2-4.9); Lymphocytes Percent Auto 12.8 % (20-40); Mean Corpuscular HGB Conc 31.1 g/dl (31.0-35.0); Mean Corpuscular Hemoglobin 23.9 pg (27.0-33.0); Mean Corpuscular Volume 76.7 fL (80.0-98.0); Mean Platelet Volume 11.4 fL (9.4-12.3); Monocytes Absolute Auto 0.7 X10*3/uL (0.1-1.2); Monocytes Percent Auto 5.1 % (2-11); Neutrophils Absolute Auto 11.6 x10*3/uL (2.0-8.3); Neutrophils Percent Auto 80.7 % (45-73); Platelet Count 271 X10*3/uL (160-400); Red Blood Count 4.73 X10*6/uL (4.20-5.50); Red Cell Distribution Width 16.5 % (11.0-16.0); White Blood Count 14.4 X10*3/uL (4.8-10.8)
[2021-10-31 07:01] LABS: Lactic Acid 1.9 mmol/L (0.5-2.0)
[2021-10-31 07:04] LABS: INTERNATIONAL NORM RATIO 1.2 (0.9-1.1); Prothrombin Time 14.2 SEC (9.9-13.0)
[2021-10-31 07:05] LABS: COVID-19 Test Negative (Negative)
[2021-10-31 07:08] LABS: Alanine Aminotransferase 7 U/L (0-31); Albumin Level 3.3 g/dL (3.5-5.0); Alkaline Phosphatase 92 U/L (39-117); Anion Gap 11 (12-20); Aspartate Amino Transferase 6 U/L (5-31); Bilirubin Direct < 0.2 mg/dL (0.0-0.5); Bilirubin Total 0.3 mg/dL (0.0-1.0); Blood Urea Nitrogen 7 mg/dL (9-16); Calcium 8.6 mg/dL (8.4-10.2); Carbon Dioxide 31 mmol/L (22-29); Chloride 98 mmol/L (96-108); Creatinine Clr Calc Pharmacy 85.2; Estimated Glomerular Filt Rate > 60; Glucose Random 219 mg/dL (60-115); Potassium 4.4 mmol/L (3.3-5.1); Sodium 136 mmol/L (135-145); Total Protein 6.4 g/dL (6.5-8.0)
[2021-10-31] MEDS: Clindamycin Phosphate/D5W 300 MG/50 ML PIGGYBACK 100 MG IV (07:21)
[2021-10-31] MEDS: Morphine Sulfate 4 MG/ML CARTRIDGE IVPUSH (07:22)
--- NOTE | 2021-10-31 07:29 | PC.NURSE ---
Medicated as per MAR orders, urine at bedside, primary RN aware.
--- NOTE | 2021-10-31 07:41 | PC.NURSE ---
rash at left a/c where meds were administered. reddness to mid bicept pt states pain is untouched by morphine which was given in the IV. Previous RN explained that IV was positional.
[2021-10-31 08:39] LABS: Appearance Urine CLEAR; Color Urine YELLOW; Glucose Urine UA 250 MG/DL (NEG); Leukocyte Esterase Urine NEG (NEG); Nitrite Urine NEG (NEG); Specific Gravity - Urine <= 1.005 (1.005-1.025); UACC Culture Trigger NO; Urine Blood TRACE (NEG); Urine Ketones NEG (NEG); Urine Protein 1+ MG/DL (NEG-TRACE)
[2021-10-31 08:48] LABS: RBC Urine 0-2 /HPF (0); Squamous Epithelial Cell Urine 1+ /LPF; WBC Urine 0-2 /HPF (0-4)
[2021-10-31 09:02] LABS: Amphetamine Screen Urine Not Detected (Not Detect); Barbiturates, Urine Not Detected (Not Detect); Benzodiazepines Screen Urine Not Detected (Not Detect); Cannabinoid Screen Urine Not Detected (Not Detect); Cocaine Screen Urine Not Detected (Not Detect); Fentanyl, urine Not Detected (Not Detect); Opiate Screen Urine Not Detected (Not Detect); Phencyclidine Screen Urine Not Detected (Not Detect)
[2021-10-31] MEDS: Morphine Sulfate Immed Release 15 MG TABLET PO (09:06)
[2021-10-31] MEDS: vancomycin HCL 750 MG in 0.9 % Sodium Chloride 250 ML 265 MG IV (09:07)
--- NOTE | 2021-10-31 09:23 | PHA.MEDREC ---
Pharmacy Consult ? Medication Reconciliation Pharmacy has completed the medication reconciliation. Spoke with patient in the ED. Last took medications yesterday
--- NOTE | 2021-10-31 09:34 | PM.IMHP ---
History of Present Illness Date of Service: 10/31/21 Attending physician on admission: Abdirashid Floyd Chief Complaint: foot pain This is a 51-year-old female who presents to the emergency department today with complaints of left foot pain. She underwent left 2nd toe amputation for osteomyelitis on September [address] Cantu. She has been following with both him and ID as an outpatient. She was most recently seen on October [address] at [address] time Dr[address] Cantu recommended admission to the hospital for IV antibiotics however the patient declined. She has been taking oral doxycycline. She has noticed increased redness, swelling, pain of her left foot. She also reports discharge from near the amputation site. She denies any associated fever or chills. In the emergency department she was tachycardic on arrival, lab work was significant for leukocytosis of 14.4. She was started on broad-spectrum antibiotics. CT scan of the foot was obtained which showed swelling suspicious for cellulitis and multiple abnormalities that could be related to postsurgical changes versus osteomyelitis. Patient is reporting significant pain and has received multiple doses of opiates for pain control. She will be admitted to the hospital for further management. Vaccination status: [employer] Todd x3 Review of Systems Review of Systems: Yes all other systems are reviewed and are negative Constitutional: Constitutional: Denies chills and Denies fever(s) Cardiovascular: Cardiovascular: Denies chest pain, Denies palpitations and Denies dyspnea Respiratory: Respiratory: Denies cough and Denies dyspnea Gastrointestinal: Gastrointestinal: Denies abdominal pain, Denies diarrhea, Denies nausea and Denies vomiting Endocrine: Endocrine: Denies palpitations [facility] Medical History (Updated 10/31/21 @ 10:11 by MITZI Castellon) Asthma Atherosclerotic cardiovascular disease Atrial tachycardia COPD (chronic obstructive pulmonary disease) COVID-19 vaccine series completed Diabetes Diabetic toe ulcer Essential hypertension GERD (gastroesophageal reflux disease) Hypertension Functional capacity: independent ambulation Family History Mother Hx of CABG Sister CAD (coronary artery disease) Surgical History History of esophagogastroduodenoscopy (EGD) History of toe surgery (09/22/21) Social History Household Members: Family Housing: Apartment Do you presently have visiting nurse or other home services: No Alcohol intake: never Patient Tobacco Use Status: Current everyday Tobacco user Tobacco use type: Cigarette Cigarettes Per Day: 10 Years Smoked: 43 e-Cigarette/Vaping Use: Never Used Second Hand Smoke Exposure: Yes Use of substances other than those prescribed or required for medical reasons: No Advance Directives: No Advance Directives Information Provided: Yes Advance Directives Date on File: 12/28/20 service: No Current occupational status: unemployed Meds Allergies Allergy/AdvReac Type Severity Reaction Status Date / Time Penicillins [PENICILLINS] Allergy Severe RASH Verified 10/31/21 04:32 amoxicillin [AMOXICILLIN] Allergy Intermediate HIVES Verified 10/31/21 04:32 Active Medications: Current Medications Albuterol Sulfate (Albuterol Sulfate (0.083%) 2.5 Mg/3 Ml Vial.Neb) 2.5 mg INHALE Q4H PRN PRN Reason: Respiratory Distress Amlodipine Besylate (Amlodipine Besylate 10 Mg Tablet) 10 mg PO DAILY [facility]; Protocol Atorvastatin Calcium (Atorvastatin Calcium 10 Mg Tablet) 10 mg PO DAILY [facility] Dextrose (Dextrose 50 % 25 Gm/50 Ml Syringe) 25 gm IVPUSH Q15M PRN; Protocol PRN Reason: per Hypoglycemia Standing Ord. Gabapentin (Gabapentin 300 Mg Capsule) 600 mg PO BEDTIME [facility] Glucose (Glucose Gel 15 Gm Gel..Gram.) 15 gm PO Q15M PRN; Protocol PRN Reason: per Hypoglycemia Standing Ord. Insulin Glargine (Insulin Glargine,Hum.Rec.Anlog 100 Unit/Ml 10 Ml Vial) 14 unit SUBCUT BEDTIME [facility] Insulin Human Lispro (Insulin Lispro 100 Unit/Ml 3 Ml Vial) 0 unit SUBCUT QIDACHS [facility]; Protocol Montelukast Sodium (Montelukast Sodium 10 Mg Tablet) 10 mg PO BEDTIME [facility] Nicotine (Nicotine 21 Mg Patch.Td24) 21 mg TRANSDERMA DAILY [facility] Non-Formulary Medication (Umeclidinium [Incruse Ellipta]) 1 puff PO DAILY [facility] Non-Formulary Medication (Fluticasone Propion-Salmeterol [Advair Hfa]) 2 puff INHALE BID [facility] Non-Formulary Medication (Lisinopril-Hydrochlorothiazide) 1 tab PO DAILY [facility] Pharmacy Consult (Consult Rx Perform Med Rec) 1 each MISCELLANE ONCE PRN PRN Reason: Consult order Home Medications Medication Instructions Recorded Confirmed Last Taken Type albuterol sulfate 90 mcg/actuation 2 puff PO Q4H PRN 12/24/20 10/31/21 10/30/21 History aerosol inhaler (ProAir HFA) aspirin 81 mg tablet,delayed 1 tab PO DAILY 12/24/20 10/31/21 10/30/21 History release atorvastatin 10 mg tablet 1 tab PO DAILY 12/24/20 10/31/21 10/30/21 History fluticasone propionate 115 2 puff INHALATION BID 12/24/20 10/31/21 10/30/21 History mcg-salmeterol 21 mcg/actuation HFA inhaler (Advair HFA) gabapentin 300 mg capsule 2 cap PO BEDTIME 12/24/20 10/31/21 10/30/21 History glipizide 5 mg-metformin 500 mg 2 tab PO BID 12/24/20 10/31/21 10/30/21 History tablet montelukast 10 mg tablet 1 tab PO BEDTIME 12/24/20 10/31/21 10/30/21 History albuterol sulfate 2.5 mg INHALATION Q4H PRN 07/11/21 10/31/21 10/30/21 History insulin glargine 100 unit/mL (3 14 unit SUBCUT BEDTIME 10/31/21 10/31/21 10/30/21 History mL) subcutaneous pen (Lantus Solostar U-100 Insulin) lisinopril 20 1 tab PO DAILY 10/31/21 10/31/21 10/30/21 History mg-hydrochlorothiazide 12.5 mg tablet umeclidinium 62.5 mcg/actuation 1 puff PO DAILY 10/31/21 10/31/21 10/30/21 History blister powder for inhalation (Incruse Ellipta) Physical Exam Vital Signs and Narrative: Vital Signs: Last Vital Signs Temp 98.6 F 10/31/21 08:08 Pulse 109 H 10/31/21 08:08 Resp 18 10/31/21 08:08 BP 163/84 H 10/31/21 08:08 Pulse Ox 97 10/31/21 08:08 BMI result Body Mass Index 25.7 Const: Other: appears uncomfortable General: cooperative, alert and awake Orientation/consciousness: patient oriented x3 Eyes: Pupils: Equal, round and reactive pupils present EOM: EOMs intact bilaterally Resp: Effort & Inspection: normal respiratory effort and able to speak in complete sentences Cardio: Rate: regular rate Heart sounds: S1 normal heart sound present and S2 normal heart sound present GI: Palpation (GI): Soft to palpation and nontender Neuro: General: patient oriented x3 Cranial nerves: Yes Equal, round and reactive pupils present Extrem: Other: moving all 4 extremities spontaneously s/p left second toe amputation Results Labs CBC and Chem 7: 10/31/21 06:34 10/31/21 06:34 Labs: Laboratory Results - last 24 hr 10/31/21 10/31/21 10/31/21 06:34 06:34 06:34 MCV 76.7 L MCH 23.9 L MCHC 31.1 RDW 16.5 H Plt Count 271 MPV 11.4 Immature Gran % (Auto) 0.6 H Neut % (Auto) 80.7 H Lymph % (Auto) 12.8 L Frederick % (Auto) 5.1 Eos % (Auto) 0.5 Baso % (Auto) 0.3 Lymph # (Auto) 1.9 Frederick # (Auto) 0.7 Eos # (Auto) 0.1 Baso # (Auto) 0.1 Abs Immat Gran (auto) 0.09 H Absolute Neuts (auto) 11.6 H Absolute Nucleated RBC 0.000 Nucleated RBC % (auto) 0.0 PT 14.2 H INR 1.2 H Anion Gap 11 L Estim Creat Clear Calc 85.2 Estimated GFR > 60 Random Glucose 219 H Lactic Acid Calcium 8.6 Total Bilirubin 0.3 Direct Bilirubin < 0.2 AST 6 D ALT 7 Alkaline Phosphatase 92 Total Protein 6.4 L Albumin 3.3 L Urine Color Urine Appearance Urine pH Ur Specific [place] Urine Protein Urine Glucose (UA) Urine Ketones Urine Blood Urine Nitrite Ur Leukocyte Esterase Urine RBC Urine WBC Ur Squamous Epith Cells Urine Bacteria Urine Opiates Screen Urine Fentanyl Screen Ur Barbiturates Screen Ur Phencyclidine Scrn Ur Amphetamines Screen U Benzodiazepines Scrn Urine Cocaine Screen U Marijuana (THC) Screen COVID-19 (KATHLEEN) COVID-19 Clin Com 10/31/21 10/31/21 10/31/21 06:34 06:34 08:32 MCV MCH MCHC RDW Plt Count MPV Immature Gran % (Auto) Neut % (Auto) Lymph % (Auto) Frederick % (Auto) Eos % (Auto) Baso % (Auto) Lymph # (Auto) Frederick # (Auto) Eos # (Auto) Baso # (Auto) Abs Immat Gran (auto) Absolute Neuts (auto) Absolute Nucleated RBC Nucleated RBC % (auto) PT INR Anion Gap Estim Creat Clear Calc Estimated GFR Random Glucose Lactic Acid 1.9 Calcium Total Bilirubin Direct Bilirubin AST ALT Alkaline Phosphatase Total Protein Albumin Urine Color YELLOW Urine Appearance CLEAR Urine pH 6.0 Ur Specific [place] <= 1.005 Urine Protein 1+ H Urine Glucose (UA) 250 H Urine Ketones NEG Urine Blood TRACE Urine Nitrite NEG Ur Leukocyte Esterase NEG Urine RBC 0-2 Urine WBC 0-2 Ur Squamous Epith Cells 1+ Urine Bacteria NONE Urine Opiates Screen Urine Fentanyl Screen Ur Barbiturates Screen Ur Phencyclidine Scrn Ur Amphetamines Screen U Benzodiazepines Scrn Urine Cocaine Screen U Marijuana (THC) Screen COVID-19 (KATHLEEN) Negative COVID-19 Clin Com See Note 10/31/21 08:32 MCV MCH MCHC RDW Plt Count MPV Immature Gran % (Auto) Neut % (Auto) Lymph % (Auto) Frederick % (Auto) Eos % (Auto) Baso % (Auto) Lymph # (Auto) Frederick # (Auto) Eos # (Auto) Baso # (Auto) Abs Immat Gran (auto) Absolute Neuts (auto) Absolute Nucleated RBC Nucleated RBC % (auto) PT INR Anion Gap Estim Creat Clear Calc Estimated GFR Random Glucose Lactic Acid Calcium Total Bilirubin Direct Bilirubin AST ALT Alkaline Phosphatase Total Protein Albumin Urine Color Urine Appearance Urine pH Ur Specific [place] Urine Protein Urine Glucose (UA) Urine Ketones Urine Blood Urine Nitrite Ur Leukocyte Esterase Urine RBC Urine WBC Ur Squamous Epith Cells Urine Bacteria Urine Opiates Screen Not Detected Urine Fentanyl Screen Not Detected Ur Barbiturates Screen Not Detected Ur Phencyclidine Scrn Not Detected Ur Amphetamines Screen Not Detected U Benzodiazepines Scrn Not Detected Urine Cocaine Screen Not Detected U Marijuana (THC) Screen Not Detected COVID-19 (KATHLEEN) COVID-19 Clin Com Imaging Radiologist's Impressions: Impressions Foot CT 10/31/21 07:20 IMPRESSION: Postsurgical changes related to resection of the distal portion of the 2nd ray at the level of the distal 2nd metatarsal. There is overlying soft tissue abnormality suspicious for cellulitis versus postsurgical result. There is also periosteal reaction along the remaining distal end of the metatarsal, nonspecific. This could reflect reactive change from surgery but can also be seen with osteomyelitis. Additionally, there are multiple osseous fragments distal to the visible end of the metatarsal of uncertain significance and etiology. This could simply reflect postsurgical result. However, cannot exclude new bone fragmentation related to osteomyelitis of the surgically altered 2nd ray/metatarsal. Perhaps correlation with surgical details could help differentiate these possibilities and help determine the likelihood of osteomyelitis. Stable osteoarthritis. Generalized abnormality in the subcutaneous soft tissues compatible with edema, cellulitis, or a combination of these Assessment and Plan (1) Cellulitis: Status: Acute Plan This is a 51-year-old female with history of diabetes, asthma/COPD, GERD, hypertension, recently underwent left 2nd toe amputation for osteomyelitis who presents to the emergency department with increasing pain, redness and swelling of her left foot Sepsis secondary to left diabetic foot infection/cellulitis/possible osteomyelitis meets sepsis criteria with tachycardia and leukocytosis; no severe features s/p second toe amputation 09/22 has been on po doxy as outpatient -IV vancomycin and zosyn (listed pcn allergy but confirmed with pharmacy pt was treated with zosyn in August without adverse event) -ID consultation -General surgery consultation -pain control DM hold oral meds (glipizide/metformin) Continue Lantus SSI, POCs HTN bp elevated, did not take meds yet today will continue home meds, Norvasc, lisinopril, HCTZ monitor blood pressure closely Tobacco dependence Smoking cessation advised -NRT asthma/copd no acute exacerbation at this time Continue home inhalers Hyperlipidemia Continue statin Peripheral neuropathy Continue gabapentin h/o atrial tachycardia not currently on any rate control agent dvt ppx - heparin code status - full code Attending - dr. floyd Due to foot infection/sepsis and history of diabetes putting her at risk for severe infection she will likely require two midnight stay in the hospital for IV antibiotics, specialist consultation and adequate pain control. Quality Stroke Does the patient have a stroke diagnosis?: No VTE Prior VTE?: No VTE Risk Level:: Medical - moderate - high VTE Device Contraindication: N/A - Device Ordered VTE Drug Contraindication: N/A - Med Ordered
[2021-10-31 09:56] LABS: C Reactive Protein 13.23 mg/dL (< or = 0.50)
--- NOTE | 2021-10-31 10:11 | PHA.PROG ---
Admission Date/Time: October 31, 2021 09:32 Indication: potential osteo Weight in k.771 kg Adjusted body weight in K.[employer] body weight in Kg: Obesity Dosing Indication % IBW: Serum Creatinine - Last 168 Hours 10/31/21 06:34 Creatinine 0.72 Estimated CrCl and GFR - Last 168 Hours 10/31/21 06:34 Estim Creat Clear Calc 85.2 Estimated GFR > 60 Vancomycin Loading Dose: 1250 mg (750 mg +500 mg) Current Vancomycin Dosing Regimen: 1000mg q12 Vancomycin Monitoring using AUC goal of 400 - 600 range with trough as surrogate marker: Date and Time for next Vancomycin Level to be drawn:11/01@1999 Pharmacist Comments on Vancomycin Plan: predicted auc 518, trough 15.7 Vancomycin dosing will take advantage of [employer] as a clinical decision support tool that uses Bayesian modeling to calculate individual patient's pharmacokinetic parameters and forecast the patient's drug concentration time course with the target goal AUC 24 range of 400 - 600 mg/L/hr.
--- NOTE | 2021-10-31 10:30 | PC.NURSE ---
following po morphine patient has been sleeping.
[2021-10-31] MEDS: Nicotine 21 MG PATCH.TD24 TRANSDERMA (10:58)
[2021-10-31] MEDS: hydroCHLOROthiazide 12.5 MG TABLET PO (10:59)
[2021-10-31] MEDS: Acetaminophen 325 MG TABLET 650 MG PO (10:59)
[2021-10-31] MEDS: amLODIPine Besylate 10 MG TABLET PO (10:59)
[2021-10-31] MEDS: Heparin Sodium,Porcine 5,000 UNIT/ML VIAL 5000 UNIT SUBCUT ×2 (11:01→21:13)
[2021-10-31] MEDS: vancomycin HCL 500 MG in 0.9 % Sodium Chloride 100 ML 110 MG IV (11:02)
[2021-10-31] MEDS: Morphine Sulfate 2 MG/ML CARTRIDGE IVPUSH ×3 (11:04→21:20)
[2021-10-31] MEDS: Piperacillin Sodium/Tazobactam 3.375 GM in 0.9 % Sodium Chloride 50 ML IV ×3 (12:19→21:14)
--- NOTE | 2021-10-31 13:46 | PC.NURSE ---
rn to rn with justin on ms.
[2021-10-31 13:53] LABS: Erythrocyte Sedimentation Rate 70 MM/HR (0-20)
[2021-10-31 14:00] LABS: Glucose, Whole Blood 108 mg/dL (60-115)
[2021-10-31] MEDS: 0.9 % Sodium Chloride Flush 3 ML SYRINGE IVFLUSH ×2 (16:24→21:14)
[2021-10-31] MEDS: Albuterol Sulfate (0.083%) 2.5 MG/3 ML VIAL.NEB INHALE (17:03)
[2021-10-31 17:11] LABS: Glucose, Whole Blood 188 mg/dL (60-115)
[2021-10-31] MEDS: Insulin Lispro 100 UNIT/ML 3 ML VIAL SUBCUT ×2 (17:31→21:14)
--- NOTE | 2021-10-31 17:32 | P.CONGS_ITS ---
History of Present Illness Consult details Consult date: 10/31/21 Reason for consult: other Requesting physician: Stephanie Flores Narrative: the patient is a 51-year-old female who underwent in mid September left 2nd toe resection for osteomyelitis and diabetic foot wound by Dr. Cantu. It seems like the area had healed up but she was on IV antibiotics the a PICC line. It has been done now for couple weeks but recently she has been having more pain and swelling in the left foot. She has been taking some p.o. antibiotics as an outpatient. This got worse in her foot got very painful yesterday and she came into the emergency room where she was admitted with cellulitis. CT scan did not reveal any under drain fluid abscess collections but the patient has developed an area draining purulent material on the plantar aspect of the 2nd toe and set it. She complains of having moderate pain to the area and feels better when the foot is hanging off the bed. Review of Systems Review of Systems: Yes all other systems are reviewed and are negative [facility] Past Medical History Medical History (Updated 10/31/21 @ 17:37 by Nayana Sosa MD) Asthma Atherosclerotic cardiovascular disease Atrial tachycardia COPD (chronic obstructive pulmonary disease) COVID-19 vaccine series completed Diabetes Diabetic toe ulcer Essential hypertension GERD (gastroesophageal reflux disease) Hypertension Functional capacity: independent ambulation Family History Family History Mother Hx of CABG Sister CAD (coronary artery disease) Surgical History Surgical History History of esophagogastroduodenoscopy (EGD) History of toe surgery (09/22/21) Social History Social History Household Members: Family Housing: Apartment Do you presently have visiting nurse or other home services: No Alcohol intake: never Patient Tobacco Use Status: Current everyday Tobacco user Tobacco use type: Cigarette Cigarettes Per Day: 10 Years Smoked: 43 e-Cigarette/Vaping Use: Never Used Second Hand Smoke Exposure: Yes Use of substances other than those prescribed or required for medical reasons: No Advance Directives: No Advance Directives Information Provided: Yes Advance Directives Date on File: 12/28/20 Do you have thoughts of harming others: None Do you have a plan to hurt others: No Plan Recently lost weight without trying: No Nutrition Risks: No Nutritional Risk Patient : No : No Poor oral hygiene: No service: No Current occupational status: unemployed Travel History Ebola Risk: Travel/Contact With Anyone From Affected Area/s: No Has Patient Experienced Ebola Symptoms: No Meds Allergies Allergy/AdvReac Type Severity Reaction Status Date / Time Penicillins [PENICILLINS] Allergy Severe RASH Verified 10/31/21 04:32 amoxicillin [AMOXICILLIN] Allergy Intermediate HIVES Verified 10/31/21 04:32 Active Medications: Current Medications Acetaminophen (Acetaminophen 325 Mg Tablet) 650 mg PO Q6H PRN PRN Reason: Pain, Mild (Pain Scale 1-3) Last Admin: 10/31/21 10:59 Dose: 650 mg Documented by: Albuterol Sulfate (Albuterol Sulfate (0.083%) 2.5 Mg/3 Ml Vial.Neb) 2.5 mg INHALE Q4H PRN PRN Reason: Respiratory Distress Last Admin: 10/31/21 17:03 Dose: 2.5 mg Documented by: Amlodipine Besylate (Amlodipine Besylate 10 Mg Tablet) 10 mg PO DAILY [facility]; Protocol Last Admin: 10/31/21 10:59 Dose: 10 mg Documented by: Atorvastatin Calcium (Atorvastatin Calcium 10 Mg Tablet) 10 mg PO BEDTIME [facility] Dextrose (Dextrose 50 % 25 Gm/50 Ml Syringe) 25 gm IVPUSH Q15M PRN; Protocol PRN Reason: per Hypoglycemia Standing Ord. Docusate Sodium (Docusate Sodium 100 Mg Capsule) 100 mg PO DAILY [facility] Fluticasone/Vilanterol (Fluticasone/Vilanterol 100/25 Blst.W.Dev) 1 puff INHALE RDAILY [facility] Gabapentin (Gabapentin 300 Mg Capsule) 600 mg PO BEDTIME [facility] Glucose (Glucose Gel 15 Gm Gel..Gram.) 15 gm PO Q15M PRN; Protocol PRN Reason: per Hypoglycemia Standing Ord. Heparin Sodium (Porcine) (Heparin Sodium,Porcine 5,000 Unit/Ml Vial) 5,000 unit SUBCUT Q12H [facility] Last Admin: 10/31/21 11:01 Dose: 5,000 unit Documented by: Hydrochlorothiazide (Hydrochlorothiazide 12.5 Mg Tablet) 12.5 mg PO DAILY M[facility]; Protocol Last Admin: 10/31/21 10:59 Dose: 12.5 mg Documented by: Piperacillin Sod/Tazobactam (Sod 3.375 gm/ Sodium Chloride) 50 mls @ 100 mls/hr IV Q6H [facility] Last Infusion: 10/31/21 16:54 Dose: Infused Documented by: Vancomycin HCl 1,000 mg/ (Sodium Chloride) 270 mls @ 270 mls/hr IV Q12H [facility] Insulin Glargine (Insulin Glargine,Hum.Rec.Anlog 100 Unit/Ml 10 Ml Vial) 14 unit SUBCUT BEDTIME [facility] Insulin Human Lispro (Insulin Lispro 100 Unit/Ml 3 Ml Vial) 0 unit SUBCUT QIDACHS [facility]; Protocol Last Admin: 10/31/21 13:49 Dose: Not Given Documented by: Lisinopril (Lisinopril 20 Mg Tablet) 20 mg PO DAILY [facility] Magnesium Hydroxide (Milk Of Magnesia 30 Ml Oral.Susp) 30 ml PO DAILY PRN PRN Reason: Constipation Montelukast Sodium (Montelukast Sodium 10 Mg Tablet) 10 mg PO BEDTIME [facility] Morphine Sulfate (Morphine Sulfate 2 Mg/Ml Cartridge) 2 mg IVPUSH Q4H PRN; Protocol PRN Reason: Pain, Severe (Pain Scale 7-10) Last Admin: 10/31/21 15:03 Dose: 2 mg Documented by: Nicotine (Nicotine 21 Mg Patch.Td24) 21 mg TRANSDERMA DAILY [facility] Last Admin: 10/31/21 10:58 Dose: 21 mg Documented by: Non-Formulary Medication (Umeclidinium [Incruse Ellipta]) 1 puff PO DAILY [facility] Oxycodone HCl (Oxycodone Hcl Immed Release 5 Mg Tablet) 5 mg PO Q6H PRN PRN Reason: Pain, Moderate (Pain Scale 4-6 Pharmacy Consult (Consult Rx Perform Med Rec) 1 each MISCELLANE ONCE PRN PRN Reason: Consult order Pharmacy Consult (Consult Rx Vancomycin Dosing) 1 each MISCELLANE DAILY PRN PRN Reason: Consult order Sodium Chloride (0.9 % Sodium Chloride Flush 3 Ml Syringe) 3 ml IVFLUSH QSHIFT [facility] Last Admin: 10/31/21 16:24 Dose: 3 ml Documented by: Home Medications Medication Instructions Recorded Confirmed Last Taken Type albuterol sulfate 90 mcg/actuation 2 puff PO Q4H PRN 12/24/20 10/31/21 10/30/21 History aerosol inhaler (ProAir HFA) aspirin 81 mg tablet,delayed 1 tab PO DAILY 12/24/20 10/31/21 10/30/21 History release atorvastatin 10 mg tablet 1 tab PO DAILY 12/24/20 10/31/21 10/30/21 History fluticasone propionate 115 2 puff INHALATION BID 12/24/20 10/31/21 10/30/21 History mcg-salmeterol 21 mcg/actuation HFA inhaler (Advair HFA) gabapentin 300 mg capsule 2 cap PO BEDTIME 12/24/20 10/31/21 10/30/21 History glipizide 5 mg-metformin 500 mg 2 tab PO BID 12/24/20 10/31/21 10/30/21 History tablet montelukast 10 mg tablet 1 tab PO BEDTIME 12/24/20 10/31/21 10/30/21 History albuterol sulfate 2.5 mg INHALATION Q4H PRN 07/11/21 10/31/21 10/30/21 History insulin glargine 100 unit/mL (3 14 unit SUBCUT BEDTIME 10/31/21 10/31/21 10/30/21 History mL) subcutaneous pen (Lantus Solostar U-100 Insulin) lisinopril 20 1 tab PO DAILY 10/31/21 10/31/21 10/30/21 History mg-hydrochlorothiazide 12.5 mg tablet umeclidinium 62.5 mcg/actuation 1 puff PO DAILY 10/31/21 10/31/21 10/30/21 History blister powder for inhalation (Incruse Ellipta) Physical Exam Vital Signs: Vital Signs: Last Vital Signs Temp 98.3 F 10/31/21 15:51 Pulse 100 10/31/21 17:03 Resp 20 10/31/21 17:03 BP 176/79 H 10/31/21 15:51 Pulse Ox 95 10/31/21 15:51 BMI result Body Mass Index 25.7 Const: General: acute distress moderate and anxious Nutritional Appearance: average body habitus Extrem: Other: Left foot is discolored purplish chin pink red in color. Moderate swelling of the distal foot toes but specifically the plantar area. She has tenderness to palpation at the base of the 2nd toe am site and there is an area that is open draining purulent material. She is tender on the midfoot on the plantar aspect. Results Labs Result diagrams: 10/31/21 06:34 10/31/21 06:34 Labs: Abnormal lab results 10/31/21 10/31/21 10/31/21 Range/Units 06:34 06:34 06:34 WBC 14.4 H (4.8-10.8) X10*3/uL Hgb 11.3 L (12.0-16.0) g/dl Hct 36.3 L (37.0-47.0) % MCV 76.7 L (80.0-98.0) fL MCH 23.9 L (27.0-33.0) pg RDW 16.5 H (11.0-16.0) % Immature Gran % (Auto) 0.6 H (0.0-0.4) % Neut % (Auto) 80.7 H (45-73) % Lymph % (Auto) 12.8 L (20-40) % Abs Immat Gran (auto) 0.09 H (0.00-0.03) X10*3/uL Absolute Neuts (auto) 11.6 H (2.0-8.3) x10*3/uL ESR (0-20) MM/HR PT 14.2 H (9.9-13.0) SEC INR 1.2 H (0.9-1.1) Carbon Dioxide 31 H (22-29) mmol/L Anion Gap 11 L (12-20) BUN 7 L (9-16) mg/dL POC Glucose (60-115) mg/dL Random Glucose 219 H (60-115) mg/dL C-Reactive Protein 13.23 H (< or = 0.50) mg/dL Total Protein 6.4 L (6.5-8.0) g/dL Albumin 3.3 L (3.5-5.0) g/dL Urine Protein (NEG-TRACE) MG/DL Urine Glucose (UA) (NEG) MG/DL 10/31/21 10/31/21 10/31/21 Range/Units 06:34 08:32 17:06 WBC (4.8-10.8) X10*3/uL Hgb (12.0-16.0) g/dl Hct (37.0-47.0) % MCV (80.0-98.0) fL MCH (27.0-33.0) pg RDW (11.0-16.0) % Immature Gran % (Auto) (0.0-0.4) % Neut % (Auto) (45-73) % Lymph % (Auto) (20-40) % Abs Immat Gran (auto) (0.00-0.03) X10*3/uL Absolute Neuts (auto) (2.0-8.3) x10*3/uL ESR 70 H (0-20) MM/HR PT (9.9-13.0) SEC INR (0.9-1.1) Carbon Dioxide (22-29) mmol/L Anion Gap (12-20) BUN (9-16) mg/dL POC Glucose 188 H (60-115) mg/dL Random Glucose (60-115) mg/dL C-Reactive Protein (< or = 0.50) mg/dL Total Protein (6.5-8.0) g/dL Albumin (3.5-5.0) g/dL Urine Protein 1+ H (NEG-TRACE) MG/DL Urine Glucose (UA) 250 H (NEG) MG/DL Short CBC 10/31/21 Range/Units 06:34 WBC 14.4 H (4.8-10.8) X10*3/uL Hgb 11.3 L (12.0-16.0) g/dl Hct 36.3 L (37.0-47.0) % Plt Count 271 (160-400) X10*3/uL BMP 10/31/21 06:34 Sodium 136 Potassium 4.4 Chloride 98 Carbon Dioxide 31 H BUN 7 L Creatinine 0.72 Calcium 8.6 Liver Function 10/31/21 Range/Units 06:34 Total Bilirubin 0.3 (0.0-1.0) mg/dL Direct Bilirubin < 0.2 (0.0-0.5) mg/dL AST 6 D (5-31) U/L ALT 7 (0-31) U/L Alkaline Phosphatase 92 (39-117) U/L Albumin 3.3 L (3.5-5.0) g/dL Urine 10/31/21 Range/Units 08:32 Urine Color YELLOW Urine Appearance CLEAR Urine pH 6.0 (5.0-8.0) Ur Specific [place] <= 1.005 (1.005-1.025) Urine Protein 1+ H (NEG-TRACE) MG/DL Urine Glucose (UA) 250 H (NEG) MG/DL All other labs normal. Imaging Additional studies: CT scan of the left foot reviewed no obvious abscess collection noted however the patient does have purulent material being discharged. Assessment and Plan (1) Left foot infection: Status: Acute Plan the patient is a 51-year-old female known to general surgery team for left 2nd toe infection at the [facility] had and proximal phalanx and underwent mid September by Dr. Cantu a left 2nd toe amputation removing the met head as well. She was treated for osteomyelitis with IV antibiotics. This was all completed the recently the foot got worse and now she has in here with cellulitis a what appears to be another foot infection. Changes on a CT scan cannot rule out ongoing osteo. Because of the significant pain and the drainage of purulent material in fluctuance will take her to the OR for exploration of the plantar aspect of her foot incision and drainage of any abscess. Plan to continue with the antibiotics as per the medical team. She understands and agrees with the ab ove plan Procedures Date of Service Date of Service: 10/31/21
--- NOTE | 2021-10-31 18:20 | P.CONAN_ITS ---
[facility] Active Problems Active Problems: All Active Problems (Updated 10/31/21 @ 17:37 by Nayana Sosa MD) Left foot infection (Acute) Cellulitis (Acute) Leukocytosis (Acute) Heart problem (Acute) Nausea and vomiting (Acute) Oral thrush (Acute) Dehydration (Acute) Abnormal CT of the abdomen (Acute) Acute pain of left foot (Acute) Osteomyelitis (Acute) COPD (chronic obstructive pulmonary disease) (Acute) Asthma (Acute) Past Medical History Medical History (Updated 10/31/21 @ 17:37 by Nayana Sosa MD) Asthma Atherosclerotic cardiovascular disease Atrial tachycardia COPD (chronic obstructive pulmonary disease) COVID-19 vaccine series completed Diabetes Diabetic toe ulcer Essential hypertension GERD (gastroesophageal reflux disease) Hypertension Functional capacity: independent ambulation Family History Family History Mother Hx of CABG Sister CAD (coronary artery disease) Family history of problems with anesthesia: No Surgical History Surgical History History of esophagogastroduodenoscopy (EGD) History of toe surgery (09/22/21) History of Problems with Anesthesia: No Social History Social History Household Members: Family Housing: Apartment Do you presently have visiting nurse or other home services: No Alcohol intake: never Patient Tobacco Use Status: Current everyday Tobacco user Tobacco use type: Cigarette Cigarettes Per Day: 10 Years Smoked: 43 e-Cigarette/Vaping Use: Never Used Second Hand Smoke Exposure: Yes Use of substances other than those prescribed or required for medical reasons: No Advance Directives: No Advance Directives Information Provided: Yes Advance Directives Date on File: 12/28/20 Do you have thoughts of harming others: None Do you have a plan to hurt others: No Plan Recently lost weight without trying: No Nutrition Risks: No Nutritional Risk Patient : No : No Poor oral hygiene: No service: No Current occupational status: unemployed Meds Allergies Allergy/AdvReac Type Severity Reaction Status Date / Time Penicillins [PENICILLINS] Allergy Severe RASH Verified 10/31/21 04:32 amoxicillin [AMOXICILLIN] Allergy Intermediate HIVES Verified 10/31/21 04:32 Active Medications: Current Medications Acetaminophen (Acetaminophen 325 Mg Tablet) 650 mg PO Q6H PRN PRN Reason: Pain, Mild (Pain Scale 1-3) Last Admin: 10/31/21 10:59 Dose: 650 mg Documented by: Albuterol Sulfate (Albuterol Sulfate (0.083%) 2.5 Mg/3 Ml Vial.Neb) 2.5 mg INHALE Q4H PRN PRN Reason: Respiratory Distress Last Admin: 10/31/21 17:03 Dose: 2.5 mg Documented by: Amlodipine Besylate (Amlodipine Besylate 10 Mg Tablet) 10 mg PO DAILY [facility]; Protocol Last Admin: 10/31/21 10:59 Dose: 10 mg Documented by: Atorvastatin Calcium (Atorvastatin Calcium 10 Mg Tablet) 10 mg PO BEDTIME [facility] Dextrose (Dextrose 50 % 25 Gm/50 Ml Syringe) 25 gm IVPUSH Q15M PRN; Protocol PRN Reason: per Hypoglycemia Standing Ord. Docusate Sodium (Docusate Sodium 100 Mg Capsule) 100 mg PO DAILY [facility] Fluticasone/Vilanterol (Fluticasone/Vilanterol 100/25 Blst.W.Dev) 1 puff INHALE RDAILY [facility] Gabapentin (Gabapentin 300 Mg Capsule) 600 mg PO BEDTIME [facility] Glucose (Glucose Gel 15 Gm Gel..Gram.) 15 gm PO Q15M PRN; Protocol PRN Reason: per Hypoglycemia Standing Ord. Heparin Sodium (Porcine) (Heparin Sodium,Porcine 5,000 Unit/Ml Vial) 5,000 unit SUBCUT Q12H [facility] Last Admin: 10/31/21 11:01 Dose: 5,000 unit Documented by: Hydrochlorothiazide (Hydrochlorothiazide 12.5 Mg Tablet) 12.5 mg PO DAILY [facility]; Protocol Last Admin: 10/31/21 10:59 Dose: 12.5 mg Documented by: Piperacillin Sod/Tazobactam (Sod 3.375 gm/ Sodium Chloride) 50 mls @ 100 mls/hr IV Q6H [facility] Last Infusion: 10/31/21 16:54 Dose: Infused Documented by: Vancomycin HCl 1,000 mg/ (Sodium Chloride) 270 mls @ 270 mls/hr IV Q12H [facility] Insulin Glargine (Insulin Glargine,Hum.Rec.Anlog 100 Unit/Ml 10 Ml Vial) 14 unit SUBCUT BEDTIME [facility] Insulin Human Lispro (Insulin Lispro 100 Unit/Ml 3 Ml Vial) 0 unit SUBCUT QIDACHS [facility]; Protocol Last Admin: 10/31/21 17:31 Dose: 2 unit Documented by: Lisinopril (Lisinopril 20 Mg Tablet) 20 mg PO DAILY [facility] Magnesium Hydroxide (Milk Of Magnesia 30 Ml Oral.Susp) 30 ml PO DAILY PRN PRN Reason: Constipation Montelukast Sodium (Montelukast Sodium 10 Mg Tablet) 10 mg PO BEDTIME [facility] Morphine Sulfate (Morphine Sulfate 2 Mg/Ml Cartridge) 2 mg IVPUSH Q4H PRN; Protocol PRN Reason: Pain, Severe (Pain Scale 7-10) Last Admin: 10/31/21 15:03 Dose: 2 mg Documented by: Nicotine (Nicotine 21 Mg Patch.Td24) 21 mg TRANSDERMA DAILY [facility] Last Admin: 10/31/21 10:58 Dose: 21 mg Documented by: Non-Formulary Medication (Umeclidinium [Incruse Ellipta]) 1 puff PO DAILY [facility] Oxycodone HCl (Oxycodone Hcl Immed Release 5 Mg Tablet) 5 mg PO Q6H PRN PRN Reason: Pain, Moderate (Pain Scale 4-6 Pharmacy Consult (Consult Rx Perform Med Rec) 1 each MISCELLANE ONCE PRN PRN Reason: Consult order Pharmacy Consult (Consult Rx Vancomycin Dosing) 1 each MISCELLANE DAILY PRN PRN Reason: Consult order Sodium Chloride (0.9 % Sodium Chloride Flush 3 Ml Syringe) 3 ml IVFLUSH QSHIFT [facility] Last Admin: 10/31/21 16:24 Dose: 3 ml Documented by: Home Medications Medication Instructions Recorded Confirmed Last Taken Type albuterol sulfate 90 mcg/actuation 2 puff PO Q4H PRN 12/24/20 10/31/21 10/30/21 History aerosol inhaler (ProAir HFA) aspirin 81 mg tablet,delayed 1 tab PO DAILY 12/24/20 10/31/21 10/30/21 History release atorvastatin 10 mg tablet 1 tab PO DAILY 12/24/20 10/31/21 10/30/21 History fluticasone propionate 115 2 puff INHALATION BID 12/24/20 10/31/21 10/30/21 History mcg-salmeterol 21 mcg/actuation HFA inhaler (Advair HFA) gabapentin 300 mg capsule 2 cap PO BEDTIME 12/24/20 10/31/21 10/30/21 History glipizide 5 mg-metformin 500 mg 2 tab PO BID 12/24/20 10/31/21 10/30/21 History tablet montelukast 10 mg tablet 1 tab PO BEDTIME 12/24/20 10/31/21 10/30/21 History albuterol sulfate 2.5 mg INHALATION Q4H PRN 07/11/21 10/31/21 10/30/21 History insulin glargine 100 unit/mL (3 14 unit SUBCUT BEDTIME 10/31/21 10/31/21 10/30/21 History mL) subcutaneous pen (Lantus Solostar U-100 Insulin) lisinopril 20 1 tab PO DAILY 10/31/21 10/31/21 10/30/21 History mg-hydrochlorothiazide 12.5 mg tablet umeclidinium 62.5 mcg/actuation 1 puff PO DAILY 10/31/21 10/31/21 10/30/21 History blister powder for inhalation (Incruse Ellipta) Exam Exam Date and Time: October 31, 2021 1820 Height,Weight and Vital Signs: Height 5 ft 3 in Weight 65.771 kg Last Vital Signs Temp 98.3 F 10/31/21 15:51 Pulse 100 10/31/21 17:03 Resp 20 10/31/21 17:03 BP 176/79 H 10/31/21 15:51 Pulse Ox 95 10/31/21 15:51 Pertinent Lab Results Pertinent Lab Results: Laboratory Tests 10/31/21 10/31/21 10/31/21 06:34 06:34 06:34 WBC 14.4 H RBC 4.73 Hgb 11.3 L Hct 36.3 L MCV 76.7 L MCH 23.9 L MCHC 31.1 RDW 16.5 H Plt Count 271 MPV 11.4 Immature Gran % (Auto) 0.6 H Neut % (Auto) 80.7 H Lymph % (Auto) 12.8 L [place] % (Auto) 5.1 Eos % (Auto) 0.5 Baso % (Auto) 0.3 Lymph # (Auto) 1.9 [place] # (Auto) 0.7 Eos # (Auto) 0.1 Baso # (Auto) 0.1 Abs Immat Gran (auto) 0.09 H Absolute Neuts (auto) 11.6 H Absolute Nucleated RBC 0.000 Nucleated RBC % (auto) 0.0 ESR PT 14.2 H INR 1.2 H Sodium 136 Potassium 4.4 Chloride 98 Carbon Dioxide 31 H Anion Gap 11 L BUN 7 L Creatinine 0.72 Estim Creat Clear Calc 85.2 Estimated GFR > 60 POC Glucose Random Glucose 219 H Lactic Acid Calcium 8.6 Total Bilirubin 0.3 Direct Bilirubin < 0.2 AST 6 D ALT 7 Alkaline Phosphatase 92 C-Reactive Protein 13.23 H Total Protein 6.4 L Albumin 3.3 L Urine Color Urine Appearance Urine pH Ur Specific [place] Urine Protein Urine Glucose (UA) Urine Ketones Urine Blood Urine Nitrite Ur Leukocyte Esterase Urine RBC Urine WBC Ur Squamous Epith Cells Urine Bacteria Urine Opiates Screen Urine Fentanyl Screen Ur Barbiturates Screen Ur Phencyclidine Scrn Ur Amphetamines Screen U Benzodiazepines Scrn Urine Cocaine Screen U Marijuana (THC) Screen COVID-19 (KATHLEEN) COVID-uromovie 10/31/21 10/31/21 10/31/21 06:34 06:34 06:34 WBC RBC Hgb Hct MCV MCH MCHC RDW Plt Count MPV Immature Gran % (Auto) Neut % (Auto) Lymph % (Auto) [place] % (Auto) Eos % (Auto) Baso % (Auto) Lymph # (Auto) [place] # (Auto) Eos # (Auto) Baso # (Auto) Abs Immat Gran (auto) Absolute Neuts (auto) Absolute Nucleated RBC Nucleated RBC % (auto) ESR 70 H PT INR Sodium Potassium Chloride Carbon Dioxide Anion Gap BUN k Creatinine Estim Creat Clear Calc Estimated GFR POC Glucose Random Glucose Lactic Acid 1.9 Calcium Total Bilirubin Direct Bilirubin AST ALT Alkaline Phosphatase C-Reactive Protein Total Protein Albumin Urine Color Urine Appearance Urine pH Ur Specific [place] Urine Protein Urine Glucose (UA) Urine Ketones Urine Blood Urine Nitrite Ur Leukocyte Esterase Urine RBC Urine WBC Ur Squamous Epith Cells Urine Bacteria Urine Opiates Screen Urine Fentanyl Screen Ur Barbiturates Screen Ur Phencyclidine Scrn Ur Amphetamines Screen U Benzodiazepines Scrn Urine Cocaine Screen U Marijuana (THC) Screen COVID-19 (KATHLEEN) Negative COVID-HouseCall Com See Note 10/31/21 10/31/21 10/31/21 08:32 08:32 13:45 WBC RBC Hgb Hct MCV MCH MCHC RDW Plt Count MPV Immature Gran % (Auto) Neut % (Auto) Lymph % (Auto) [place] % (Auto) Eos % (Auto) Baso % (Auto) Lymph # (Auto) [place] # (Auto) Eos # (Auto) Baso # (Auto) Abs Immat Gran (auto) Absolute Neuts (auto) Absolute Nucleated RBC Nucleated RBC % (auto) ESR PT INR Sodium Potassium Chloride Carbon Dioxide Anion Gap BUN Creatinine Estim Creat Clear Calc Estimated GFR POC Glucose 108 Random Glucose Lactic Acid Calcium Total Bilirubin Direct Bilirubin AST ALT Alkaline Phosphatase C-Reactive Protein Total Protein Albumin Urine Color YELLOW Urine Appearance CLEAR Urine pH 6.0 Ur Specific [place] <= 1.005 Urine Protein 1+ H Urine Glucose (UA) 250 H Urine Ketones NEG Urine Blood TRACE Urine Nitrite NEG Ur Leukocyte Esterase NEG Urine RBC 0-2 Urine WBC 0-2 Ur Squamous Epith Cells 1+ Urine Bacteria NONE Urine Opiates Screen Not Detected Urine Fentanyl Screen Not Detected Ur Barbiturates Screen Not Detected Ur Phencyclidine Scrn Not Detected Ur Amphetamines Screen Not Detected U Benzodiazepines Scrn Not Detected Urine Cocaine Screen Not Detected U Marijuana (THC) Screen Not Detected COVID-19 (KATHLEEN) COVID-uromovie 10/31/21 17:06 WBC RBC Hgb Hct MCV MCH MCHC RDW Plt Count MPV Immature Gran % (Auto) Neut % (Auto) Lymph % (Auto) [place] % (Auto) Eos % (Auto) Baso % (Auto) Lymph # (Auto) [place] # (Auto) Eos # (Auto) Baso # (Auto) Abs Immat Gran (auto) Absolute Neuts (auto) Absolute Nucleated RBC Nucleated RBC % (auto) ESR PT INR Sodium Potassium Chloride Carbon Dioxide Anion Gap BUN Creatinine Estim Creat Clear Calc Estimated GFR POC Glucose 188 H Random Glucose Lactic Acid Calcium Total Bilirubin Direct Bilirubin AST ALT Alkaline Phosphatase C-Reactive Protein Total Protein Albumin Urine Color Urine Appearance Urine pH Ur Specific [place] Urine Protein Urine Glucose (UA) Urine Ketones Urine Blood Urine Nitrite Ur Leukocyte Esterase Urine RBC Urine WBC Ur Squamous Epith Cells Urine Bacteria Urine Opiates Screen Urine Fentanyl Screen Ur Barbiturates Screen Ur Phencyclidine Scrn Ur Amphetamines Screen U Benzodiazepines Scrn Urine Cocaine Screen U Marijuana (THC) Screen COVID-19 (KATHLEEN) COVID-19 Clin Com Airway Mallampati Class: II TM Dist: >3cm Neck ROM: Full Denture: Upper and Lower Assessment and Plan Assessment Anesthesia Assessment: Anesthesia Plan Discussed and Chart Reviewed Final Anesthetic Review Family History of Problems with Anesthesia: No History of Problems with Anesthesia: No NPO: Yes ASA Class: III and Emergency Final Preanesthetic Review: No Changes in Pt Med Stat, Meds/Allgs Chart Reviewed, Consent Obtained/Reviewed and Anes Risks/Benef Reviewed Patient Risk: Low Procedure Risk: Low Anesthetic Plan Anesthetic Plan: GA Disposition: Standard PACU
--- NOTE | 2021-10-31 18:46 | W.PM.OPN ---
Operative Note Operative Note Date of Service: 10/31/21 Narrative: left plantar deep fascia abscess - drained moderate purulent material going from base of toes to distal foot along deeper fascia tract irrigated til clear and packed lma anesthesia
[2021-10-31 20:16] LABS: Glucose, Whole Blood 215 mg/dL (60-115)
[2021-10-31] MEDS: Insulin Glargine,Hum.rec.anlog 100 UNIT/ML 10 ML VIAL 14 UNIT SUBCUT (21:13)
[2021-10-31] MEDS: Montelukast Sodium 10 MG TABLET PO (21:13)
[2021-10-31] MEDS: Gabapentin 300 MG CAPSULE 600 MG PO (21:13)
[2021-10-31] MEDS: vancomycin HCL 1,000 MG in 0.9 % Sodium Chloride 250 ML 270 MG IV (22:19)
[2021-10-31] MEDS: oxyCODONE HCl Immed Release 5 MG TABLET PO (23:09)
[2021-11-01] VITALS: BP 141/67; PULSE 99; RESP 18; TEMP 36.1; O2SAT 94
[2021-11-01] MEDS: Piperacillin Sodium/Tazobactam 3.375 GM in 0.9 % Sodium Chloride 50 ML IV ×2 (03:47→10:37)
[2021-11-01] MEDS: Morphine Sulfate 2 MG/ML CARTRIDGE IVPUSH ×2 (03:47→11:47)
[2021-11-01 04:00] VITALS: BP 131/71; PULSE 88; RESP 16; TEMP 36.1; O2SAT 94
[2021-11-01] MEDS: oxyCODONE HCl Immed Release 5 MG TABLET PO ×2 (06:21→16:32)
[2021-11-01 07:07] LABS: Hematocrit 30.6 % (37.0-47.0); Hemoglobin 9.5 g/dl (12.0-16.0); Mean Corpuscular Hemoglobin 23.8 pg (27.0-33.0); Mean Corpuscular Volume 76.5 fL (80.0-98.0); Mean Platelet Volume 11.7 fL (9.4-12.3); Platelet Count 214 X10*3/uL (160-400); Red Cell Distribution Width 16.2 % (11.0-16.0)
[2021-11-01 07:39] LABS: Anion Gap 11 (12-20); Blood Urea Nitrogen 12 mg/dL (9-16); Calcium 8.1 mg/dL (8.4-10.2); Carbon Dioxide 28 mmol/L (22-29); Chloride 99 mmol/L (96-108); Creatinine Clr Calc Pharmacy 80.7; Estimated Glomerular Filt Rate > 60; Glucose Random 376 mg/dL (60-115); Potassium 4.4 mmol/L (3.3-5.1); Sodium 134 mmol/L (135-145)
[2021-11-01 07:49] VITALS: BP 142/74; PULSE 83; RESP 18; TEMP 36.5; O2SAT 94
[2021-11-01 07:56] LABS: Glucose, Whole Blood 301 mg/dL (60-115)
[2021-11-01] MEDS: 0.9 % Sodium Chloride Flush 3 ML SYRINGE IVFLUSH (08:46)
[2021-11-01] MEDS: Docusate Sodium 100 MG CAPSULE PO (08:46)
[2021-11-01] MEDS: lisinopriL 20 MG TABLET PO (08:46)
[2021-11-01] MEDS: hydroCHLOROthiazide 12.5 MG TABLET PO (08:46)
[2021-11-01] MEDS: amLODIPine Besylate 10 MG TABLET PO (08:46)
[2021-11-01] MEDS: Nicotine 21 MG PATCH.TD24 TRANSDERMA (08:48)
--- NOTE | 2021-11-01 08:56 | PC.NURSE ---
pt POC 301 this morning. pt refused insulin stating she takes another medication at home. Pt says she will have someone bring in her home medication. Elizabeth Gracia notified. Will continue to monitor.
--- NOTE | 2021-11-01 09:18 | HO.PM.IMPN ---
Subjective Subjective Date of Service: 11/01/21 Review of Systems Follow up osteo and abscess No pain elevcated blood sugars Physical Exam Vital Signs: Vital Signs: Last Vital Signs Temp 97.7 F 11/01/21 07:49 Pulse 83 11/01/21 07:49 Resp 18 11/01/21 07:49 BP 142/74 H 11/01/21 07:49 Pulse Ox 94 11/01/21 07:49 BMI result Body Mass Index 25.7 Appearing in no acute distress heart regular rate rhythm, clear S1, S2 positive bowel sounds, abdomen is soft, nontender neuro patient is alert x3, no focal deficits dressing intact Objective Data Active Medications Acetaminophen (Acetaminophen 325 Mg Tablet) 650 mg PO Q6H PRN PRN Reason: Pain, Mild (Pain Scale 1-3) Last Admin: 10/31/21 10:59 Dose: 650 mg Documented by: MANDIE Albuterol Sulfate (Albuterol Sulfate (0.083%) 2.5 Mg/3 Ml Vial.Neb) 2.5 mg INHALE Q4H PRN PRN Reason: Respiratory Distress Last Admin: 10/31/21 17:03 Dose: 2.5 mg Documented by: SIMIN Amlodipine Besylate (Amlodipine Besylate 10 Mg Tablet) 10 mg PO DAILY [facility]; Protocol Last Admin: 11/01/21 08:46 Dose: 10 mg Documented by: ADRIEL Atorvastatin Calcium (Atorvastatin Calcium 10 Mg Tablet) 10 mg PO BEDTIME [facility] Dextrose (Dextrose 50 % 25 Gm/50 Ml Syringe) 25 gm IVPUSH Q15M PRN; Protocol PRN Reason: per Hypoglycemia Standing Ord. Docusate Sodium (Docusate Sodium 100 Mg Capsule) 100 mg PO DAILY [facility] Last Admin: 11/01/21 08:46 Dose: 100 mg Documented by: ADRIEL Fluticasone/Vilanterol (Fluticasone/Vilanterol 100/25 Blst.W.Dev) 1 puff INHALE RDAILY [facility] Gabapentin (Gabapentin 300 Mg Capsule) 600 mg PO BEDTIME [facility] Last Admin: 10/31/21 21:13 Dose: 600 mg Documented by: FELIPE Glipizide (Glipizide 10 Mg Tablet) 10 mg PO BIDWM [facility] Glucose (Glucose Gel 15 Gm Gel..Gram.) 15 gm PO Q15M PRN; Protocol PRN Reason: per Hypoglycemia Standing Ord. Heparin Sodium (Porcine) (Heparin Sodium,Porcine 5,000 Unit/Ml Vial) 5,000 unit SUBCUT Q12H [facility] Last Admin: 10/31/21 21:13 Dose: 5,000 unit Documented by: FELIPE Hydrochlorothiazide (Hydrochlorothiazide 12.5 Mg Tablet) 12.5 mg PO DAILY [facility]; Protocol Last Admin: 11/01/21 08:46 Dose: 12.5 mg Documented by: ADRIEL Piperacillin Sod/Tazobactam (Sod 3.375 gm/ Sodium Chloride) 50 mls @ 100 mls/hr IV Q6H [facility] Last Infusion: 11/01/21 04:17 Dose: 0 mls/hr Documented by: FELIPE Vancomycin HCl 1,000 mg/ (Sodium Chloride) 270 mls @ 270 mls/hr IV Q12H [facility] Last Infusion: 11/01/21 00:24 Dose: 0 mls/hr Documented by: FELIPE Insulin Glargine (Insulin Glargine,Hum.Rec.Anlog 100 Unit/Ml 10 Ml Vial) 14 unit SUBCUT BEDTIME [facility] Last Admin: 10/31/21 21:13 Dose: 14 unit Documented by: FELIPE Insulin Human Lispro (Insulin Lispro 100 Unit/Ml 3 Ml Vial) 0 unit SUBCUT QIDACHS [facility]; Protocol Last Admin: 11/01/21 08:55 Dose: Not Given Documented by: ADRIEL Non-Admin Reason: Patient Refused Lisinopril (Lisinopril 20 Mg Tablet) 20 mg PO DAILY [facility] Last Admin: 11/01/21 08:46 Dose: 20 mg Documented by: ADRIEL Magnesium Hydroxide (Milk Of Magnesia 30 Ml Oral.Susp) 30 ml PO DAILY PRN PRN Reason: Constipation Metformin HCl (Metformin Hcl 1,000 Mg Tablet) 1,000 mg PO BIDWM [facility] Montelukast Sodium (Montelukast Sodium 10 Mg Tablet) 10 mg PO BEDTIME [facility] Last Admin: 10/31/21 21:13 Dose: 10 mg Documented by: FELIPE Morphine Sulfate (Morphine Sulfate 2 Mg/Ml Cartridge) 2 mg IVPUSH Q4H PRN; Protocol PRN Reason: Pain, Severe (Pain Scale 7-10) Last Admin: 11/01/21 03:47 Dose: 2 mg Documented by: FELIPE Nicotine (Nicotine 21 Mg Patch.Td24) 21 mg TRANSDERMA DAILY [facility] Last Admin: 11/01/21 08:48 Dose: 21 mg Documented by: ADRIEL Oxycodone HCl (Oxycodone Hcl Immed Release 5 Mg Tablet) 5 mg PO Q6H PRN PRN Reason: Pain, Moderate (Pain Scale 4-6 Last Admin: 11/01/21 06:21 Dose: 5 mg Documented by: FELIPE Pharmacy Consult (Consult Rx Perform Med Rec) 1 each MISCELLANE ONCE PRN PRN Reason: Consult order Pharmacy Consult (Consult Rx Vancomycin Dosing) 1 each MISCELLANE DAILY PRN PRN Reason: Consult order Sodium Chloride (0.9 % Sodium Chloride Flush 3 Ml Syringe) 3 ml IVFLUSH QSHIFT [facility] Last Admin: 11/01/21 08:46 Dose: 3 ml Documented by: ADRIEL Tiotropium [place] (Tiotropium [place] 18 Mcg Cap.W.Dev) 1 puff INHALE RDAILY [facility] Labs CBC & Chem 7: 11/01/21 06:17 11/01/21 06:17 Labs: Laboratory Results - last 24 hr 10/31/21 10/31/21 10/31/21 06:34 06:34 13:45 MCV MCH MCHC RDW Plt Count MPV Absolute Nucleated RBC Nucleated RBC % (auto) ESR 70 H Anion Gap Estim Creat Clear Calc Estimated GFR POC Glucose 108 Random Glucose Calcium C-Reactive Protein 13.23 H 10/31/21 10/31/21 11/01/21 17:06 19:55 06:17 MCV 76.5 L MCH 23.8 L MCHC 31.0 RDW 16.2 H Plt Count 214 MPV 11.7 Absolute Nucleated RBC 0.000 Nucleated RBC % (auto) 0.0 ESR Anion Gap Estim Creat Clear Calc Estimated GFR POC Glucose 188 H 215 H Random Glucose Calcium C-Reactive Protein 11/01/21 11/01/21 06:17 07:47 MCV MCH MCHC RDW Plt Count MPV Absolute Nucleated RBC Nucleated RBC % (auto) ESR Anion Gap 11 L Estim Creat Clear Calc 80.7 Estimated GFR > 60 POC Glucose 301 H Random Glucose 376 H* Calcium 8.1 L C-Reactive Protein Microbiology Microbiology Results: Microbiology 10/31/21 06:38 Blood Culture - Preliminary Blood - Venous No growth after 24 hours. 10/31/21 06:38 Blood Culture - Preliminary Blood - Venous No growth after 24 hours. 10/31/21 Unknown Gram Stain - Final Foot Left Routine Culture - Preliminary Culture in progress. Assessment and Plan (1) COPD exacerbation: Status: Resolved (2) Cellulitis: Status: Deleted (3) Hyperglycemia: Status: Resolved (4) Cellulitis: Status: Resolved Plan 51/F w/ diabetes, HLD, peripheral neuropathy, copd here with sepsis secondary to diabetic foot infectionb COPD exacerbation treated and resolved Sepsis /diabetic foot infection/osteomyelitis of the second proximal phalanx and the second metatarsal head and neck,also showed abcess by MRI ID consult pending Diabetes diabetes uncontrolled A1C 10. She claims insurance has not been covering her weekly injection. Will continue home medications SS and adad diet Hypertension continue Lisinopril, Norvasc and Hydralazine and HCTZ Peripheral neuropathy likely related to diabetes Continue home gabapentin Active smoker Nicotine patch DVT prophylaxis with subQ Lovenox Attending Dr. Umaña full code Needs for inpatient: requiring IV abx for osteomyelitis until VNA can be established for home infusion so far VNA has not accepted her Quality Stroke Does the patient have a stroke diagnosis?: No VTE Prior VTE?: No VTE Risk Level:: Medical - moderate - high VTE Device Contraindication: N/A - Device Ordered VTE Drug Contraindication: N/A - Med Ordered
--- NOTE | 2021-11-01 09:56 | MHC.CLN ---
NUTRITION INCREASED DIETARY CALORIES. DIET=DIABETIC 1800 KCALS.
--- NOTE | 2021-11-01 10:36 | HO.POSTANES ---
Post Anesthesia Evaluation Post Anesthesia Evaluation Vital Signs: Vital Signs Temp Pulse Resp BP Pulse Ox 11/01/21 07:49 97.7 F 83 18 142/74 H 94 11/01/21 04:00 96.9 F 88 16 131/71 94 11/01/21 00:00 96.9 F 99 18 141/67 H 94 Anesthesia: General Mental Status: Awake Pain Control: Satisfactory Nausea/Vomiting: None Hydration: Adequate Anesthesia-Related Issues: No Anes. Related Issues
[2021-11-01] MEDS: Heparin Sodium,Porcine 5,000 UNIT/ML VIAL 5000 UNIT SUBCUT (10:40)
[2021-11-01] MEDS: Albuterol Sulfate (0.083%) 2.5 MG/3 ML VIAL.NEB INHALE (11:13)
[2021-11-01] MEDS: Fluticasone/Vilanterol 100/25 BLST.W.DEV 1 PUFF INHALE (11:14)
[2021-11-01 11:16] VITALS: PULSE 99; RESP 22; O2SAT 99
[2021-11-01] MEDS: vancomycin HCL 1,000 MG in 0.9 % Sodium Chloride 250 ML 270 MG IV (11:20)
[2021-11-01 11:23] VITALS: BP 159/98; PULSE 98; RESP 18; TEMP 36.9; O2SAT 96
[2021-11-01 11:28] LABS: Glucose, Whole Blood 323 mg/dL (60-115)
[2021-11-01] MEDS: Insulin Lispro 100 UNIT/ML 3 ML VIAL SUBCUT (11:48)
--- NOTE | 2021-11-01 12:58 | MHC.CM.PN ---
Emr reviewed, pt admitted w/COPD exac and diabetic foot infection, cm met w/pt who is anxious to d/c today, pt reports she lives w/s.o. and 3 grown children, pt reports she uses crutches as only DME and is would like a VNA to come in and monitor her foot after d/c. Pt verifies pcp is from [facility] on [facility] in [facility] however does not know name, pt reports s.o. and primary contact is Chay Bryan is her HCP, copy rquested. D/C plan: home w/new vna, family for transport Covid Vaccine 3 or 4, unsure if Moderna or Pfizer
[2021-11-01 15:11] VITALS: BP 155/67; PULSE 89; RESP 18; TEMP 36.8; O2SAT 97
--- NOTE | 2021-11-01 15:21 | PM.PNGS ---
Subjective Subjective Date of Service: 11/01/21 Interval history: states she has good pain control also says she is ready to go home Physical Exam Vital Signs: Vital Signs: Last Vital Signs Temp 98.2 F 11/01/21 15:11 Pulse 89 11/01/21 15:11 Resp 18 11/01/21 15:11 BP 155/67 H 11/01/21 15:11 Pulse Ox 97 11/01/21 15:11 BMI result Body Mass Index 25.7 Const: Other: appears very anxious General: comfortable and no acute distress Cardio: Rate: regular rate Extrem: Other: left foot - open wound from I and D sites, plantar aspect and also on patient site on the 2nd toe area, with iodoform packings, no cellulitis, no fluctuance Objective Data Active Medications Acetaminophen (Acetaminophen 325 Mg Tablet) 650 mg PO Q6H PRN PRN Reason: Pain, Mild (Pain Scale 1-3) Last Admin: 10/31/21 10:59 Dose: 650 mg Documented by: MANDIE Albuterol Sulfate (Albuterol Sulfate (0.083%) 2.5 Mg/3 Ml Vial.Neb) 2.5 mg INHALE Q4H PRN PRN Reason: Respiratory Distress Last Admin: 11/01/21 11:13 Dose: 2.5 mg Documented by: SANTIAGO Amlodipine Besylate (Amlodipine Besylate 10 Mg Tablet) 10 mg PO DAILY [facility]; Protocol Last Admin: 11/01/21 08:46 Dose: 10 mg Documented by: ADRIEL Atorvastatin Calcium (Atorvastatin Calcium 10 Mg Tablet) 10 mg PO BEDTIME [facility] Dextrose (Dextrose 50 % 25 Gm/50 Ml Syringe) 25 gm IVPUSH Q15M PRN; Protocol PRN Reason: per Hypoglycemia Standing Ord. Docusate Sodium (Docusate Sodium 100 Mg Capsule) 100 mg PO DAILY [facility] Last Admin: 11/01/21 08:46 Dose: 100 mg Documented by: ADRIEL Fluticasone/Vilanterol (Fluticasone/Vilanterol 100/25 Blst.W.Dev) 1 puff INHALE RDAILY [facility] Last Admin: 11/01/21 11:14 Dose: 1 puff Documented by: SANTIAGO Gabapentin (Gabapentin 300 Mg Capsule) 600 mg PO BEDTIME [facility] Last Admin: 05/22/22 21:13 Dose: 600 mg Documented by: FELIPE Glipizide (Glipizide 10 Mg Tablet) 10 mg PO BIDWM [facility] Glucose (Glucose Gel 15 Gm Gel..Gram.) 15 gm PO Q15M PRN; Protocol PRN Reason: per Hypoglycemia Standing Ord. Heparin Sodium (Porcine) (Heparin Sodium,Porcine 5,000 Unit/Ml Vial) 5,000 unit SUBCUT Q12H [facility] Last Admin: 11/01/21 10:40 Dose: 5,000 unit Documented by: ADRIEL Hydrochlorothiazide (Hydrochlorothiazide 12.5 Mg Tablet) 12.5 mg PO DAILY [facility]; Protocol Last Admin: 11/01/21 08:46 Dose: 12.5 mg Documented by: ADRIEL Piperacillin Sod/Tazobactam (Sod 3.375 gm/ Sodium Chloride) 50 mls @ 100 mls/hr IV Q6H [facility] Last Infusion: 11/01/21 11:13 Dose: 0 mls/hr Documented by: ADRIEL Vancomycin HCl 1,000 mg/ (Sodium Chloride) 270 mls @ 270 mls/hr IV Q12H [facility] Last Infusion: 11/01/21 13:18 Dose: 0 mls/hr Documented by: ADRIEL Insulin Glargine (Insulin Glargine,Hum.Rec.Anlog 100 Unit/Ml 10 Ml Vial) 14 unit SUBCUT BEDTIME [facility] Last Admin: 10/31/21 21:13 Dose: 14 unit Documented by: FELIPE Insulin Human Lispro (Insulin Lispro 100 Unit/Ml 3 Ml Vial) 0 unit SUBCUT QIDACHS [facility]; Protocol Last Admin: 11/01/21 11:48 Dose: 8 unit Documented by: ADRIEL Lisinopril (Lisinopril 20 Mg Tablet) 20 mg PO DAILY [facility] Last Admin: 11/01/21 08:46 Dose: 20 mg Documented by: ADRIEL Magnesium Hydroxide (Milk Of Magnesia 30 Ml Oral.Susp) 30 ml PO DAILY PRN PRN Reason: Constipation Metformin HCl (Metformin Hcl 1,000 Mg Tablet) 1,000 mg PO BIDWM [facility] Montelukast Sodium (Montelukast Sodium 10 Mg Tablet) 10 mg PO BEDTIME [facility] Last Admin: 10/31/21 21:13 Dose: 10 mg Documented by: FELIPE Morphine Sulfate (Morphine Sulfate 2 Mg/Ml Cartridge) 2 mg IVPUSH Q4H PRN; Protocol PRN Reason: Pain, Severe (Pain Scale 7-10) Last Admin: 11/01/21 11:47 Dose: 2 mg Documented by: ADRIEL Nicotine (Nicotine 21 Mg Patch.Td24) 21 mg TRANSDERMA DAILY [facility] Last Admin: 11/01/21 08:48 Dose: 21 mg Documented by: ADRIEL Oxycodone HCl (Oxycodone Hcl Immed Release 5 Mg Tablet) 5 mg PO Q6H PRN PRN Reason: Pain, Moderate (Pain Scale 4-6 Last Admin: 11/01/21 06:21 Dose: 5 mg Documented by: FELIPE Pharmacy Consult (Consult Rx Perform Med Rec) 1 each MISCELLANE ONCE PRN PRN Reason: Consult order Pharmacy Consult (Consult Rx Vancomycin Dosing) 1 each MISCELLANE DAILY PRN PRN Reason: Consult order Sodium Chloride (0.9 % Sodium Chloride Flush 3 Ml Syringe) 3 ml IVFLUSH QSHIFT [facility] Last Admin: 11/01/21 08:46 Dose: 3 ml Documented by: ADRIEL Tiotropium [place] (Tiotropium [place] 18 Mcg Cap.W.Dev) 1 puff INHALE RDAILY [facility] Last Admin: 11/01/21 11:13 Dose: 1 puff Documented by: SANTIAGO Labs CBC & Chem 7: 11/01/21 06:17 11/01/21 06:17 Labs: Laboratory Results - last 24 hr 10/31/21 10/31/21 11/01/21 17:06 19:55 06:17 MCV 76.5 L MCH 23.8 L MCHC 31.0 RDW 16.2 H Plt Count 214 MPV 11.7 Absolute Nucleated RBC 0.000 Nucleated RBC % (auto) 0.0 Anion Gap Estim Creat Clear Calc Estimated GFR POC Glucose 188 H 215 H Random Glucose Calcium 11/01/21 11/01/21 11/01/21 06:17 07:47 11:19 MCV MCH MCHC RDW Plt Count MPV Absolute Nucleated RBC Nucleated RBC % (auto) Anion Gap 11 L Estim Creat Clear Calc 80.7 Estimated GFR > 60 POC Glucose 301 H 323 H Random Glucose 376 H* Calcium 8.1 L Microbiology Microbiology Results: Microbiology 10/31/21 06:38 Blood Culture - Preliminary Blood - Venous No growth after 24 hours. 10/31/21 06:38 Blood Culture - Preliminary Blood - Venous No growth after 24 hours. 10/31/21 Unknown Gram Stain - Final Foot Left Routine Culture - Preliminary Culture in progress. Procedures Date of Service Date of Service: 11/01/21 Progress Note: A&P Assessment and plan (1) Left foot infection: Status: Acute Assessment and Plan: status post I and D, abscess, multiple sites looks like foot is much improved I removed 2 short packings long packing may be removed completely with next dressing change if discharged today, needs oral antibiotics I just changed dressings drainage dressings daily, wrap foot with Kerlix roll she can follow-up with surgery or with wound clinic Time Spent With Patient Time: Total time spent is greater than 50% in coordination of care (as documented) at patient's floor/unit and/or counseling patient: Quality Stroke Does the patient have a stroke diagnosis?: No VTE Prior VTE?: No VTE Risk Level:: Medical - moderate - high VTE Device Contraindication: N/A - Device Ordered VTE Drug Contraindication: N/A - Med Ordered
--- NOTE | 2021-11-01 15:32 | P.DS_ITS ---
DS: Providers Provider Date of Service: 11/01/21 Date of admission: 10/31/21 09:32 Primary care physician: Unknown Physician Consults: 10/31/21 09:27 Consult to General Surgery Routine Consulting Provider: Nayana Sosa Reason for consultation: left foot infection s/p left 2nd toe amp Has provider been notified: No Consult to Infectious Diseases Routine Consulting Provider: Angie Padilla Reason for consultation: foot infection s/p amputation Has provider been notified: No DS: Diagnosis Discharge Diagnosis (1) Left foot infection: Status: Acute DS: Summary Hospital Course Hospital Course: HP as per admitting provider This is a 51-year-old female who presents to the emergency department today with complaints of left foot pain.? She underwent left 2nd toe amputation for osteomyelitis on September [address] Cantu.? She has been following with both him and ID as an outpatient.? She was most recently seen on October 28 [address] at that time Dr. Cantu recommended admission to the hospital for IV antibiotics however the patient declined.? She has been taking oral doxycycline.? She has noticed increased redness, swelling, pain of her left foot.? She also reports discharge from near the amputation site.? She denies any associated fever or chills.? In the emergency department she was tachycardic on arrival, lab work was significant for leukocytosis of 14.4.? She was started on broad-spectrum antibiotics.? CT scan of the foot was obtained which showed swelling suspicious for cellulitis and multiple abnormalities that could be related to postsurgical changes versus osteomyelitis.? Patient is reporting significant pain and has received multiple doses of opiates for pain control.? She will be admitted to the hospital for further management. Vaccination status: Pfizer x3 COPD exacerbation treated with steroids and duonebs resolved Sepsis /diabetic foot infection/osteomyelitis of the second proximal phalanx and the second metatarsal head and neck,also showed abcess by MRI s/p left plantar deep fascia abscess drained with moderate purulent material going from base of toes to distal foot along deeper fascia tract irrigated til clear and packed Follow up with general surgery outpatient dressings daily, wrap with kerlix Linezolid for 28 days Diabetes diabetes uncontrolled A1C 10. She claims insurance has not been covering her w eekly injection. Will continue home medications? Hypertension continue Lisinopril, Norvasc and Hydralazine and HCTZ Peripheral neuropathy likely related to diabetes Continue home gabapentin Active smoker Nicotine patch encouraged cessation Time Spent with Patient Time attestation: Total time spent providing and/or coordinating discharge services: Discharge coordination time: Greater than 30 minutes Quality: Safe Use of Opioids Does Pt have an Active Cancer Diagnosis on the Problem List?: No Quality: Stroke Does the patient have a stroke diagnosis?: No Physical Exam Vital Signs: Vital Signs: Last Vital Signs Temp 98.2 F 11/01/21 15:11 Pulse 89 11/01/21 15:11 Resp 18 11/01/21 15:11 BP 155/67 H 11/01/21 15:11 Pulse Ox 97 11/01/21 15:11 BMI result Body Mass Index 25.7 Appearing in no acute distress head is normocephalic atraumatic eyes pupils are PERRLA sclera is anicteric mouth throat mucous membranes are intact and moist neck is supple no lymphadenopathy, no JVD noted lung sounds are clear to auscultation heart regular rate rhythm, clear S1, S2 positive bowel sounds, abdomen is soft, nontender neuro patient is alert x3, no focal deficits foot dressing intact, changed by general surgery today packing removed DS: Data Data Completed and Pending Completed studies during hospitalization [Text1]: Procedures Insertion of Infusion Device into Superior Vena Cava, Percutaneous Approach (08/21/21) Labs on day of discharge: Laboratory Results - last 24 hr 10/31/21 10/31/21 11/01/21 17:06 19:55 06:17 WBC 13.0 H RBC 4.00 L Hgb 9.5 L Hct 30.6 L MCV 76.5 L MCH 23.8 L MCHC 31.0 RDW 16.2 H Plt Count 214 MPV 11.7 Absolute Nucleated RBC 0.000 Nucleated RBC % (auto) 0.0 Sodium Potassium Chloride Carbon Dioxide Anion Gap BUN Creatinine Estim Creat Clear Calc Estimated GFR POC Glucose 188 H 215 H Random Glucose Calcium 11/01/21 11/01/21 11/01/21 06:17 07:47 11:19 WBC RBC Hgb Hct MCV MCH MCHC RDW Plt Count MPV Absolute Nucleated RBC Nucleated RBC % (auto) Sodium 134 L Potassium 4.4 Chloride 99 Carbon Dioxide 28 Anion Gap 11 L BUN 12 D Creatinine 0.76 Estim Creat Clear Calc 80.7 Estimated GFR > 60 POC Glucose 301 H 323 H Random Glucose 376 H* Calcium 8.1 L Preliminary micro results at discharge 10/31/21 06:38 Blood Culture - Preliminary Blood - Venous No growth after 24 hours. 10/31/21 06:38 Blood Culture - Preliminary Blood - Venous No growth after 24 hours. 10/31/21 Unknown Routine Culture - Preliminary Foot Left Culture in progress. Discharge Plan Discharge Anticipated Discharge Date/Time: 11/01/21 15:25 Patient Disposition: Home, Self-Care Discharge Diagnosis: Sepsis secondary to diabetic foot infection with abscess Referrals: Padmini PEARL [Outside] - 3-5 Days (half-way for wound care, start of care 11/04.) Nayana Sosa MD [Physician] - 1 Day (FRIDAY 11/03 AT 9AM AT [facility] ) Nayana Sosa MD [Physician] - 1 Week Physician,Unknown J [Primary Care Provider] - 1 Week Discharge Medications: New linezolid [Zyvox] 600 mg tablet 600 mg PO Q12H 28 Days Qty: 56 0RF Continued atorvastatin 10 mg tablet 1 tab PO DAILY 0RF aspirin 81 mg tablet,delayed release (DR/EC) 1 tab PO DAILY 0RF gabapentin 300 mg capsule 2 cap PO BEDTIME 0RF montelukast 10 mg tablet 1 tab PO BEDTIME 0RF albuterol sulfate [ProAir HFA] 90 mcg/actuation HFA aerosol inhaler 2 puff PO Q4H PRN (Reason: wheezing) 0RF glipizide-metformin 5-500 mg tablet 2 tab PO BID 0RF Advair HFA 115-21 mcg/actuation HFA aerosol inhaler 2 puff inhalation BID 0RF amlodipine 10 mg Tablet 10 mg PO DAILY 30 Days Qty: 30 0RF Protocol: Hold for SBP< HOLD for SBP < : 90 lisinopril-hydrochlorothiazide 20-12.5 mg tablet 1 tab PO DAILY 0RF Lantus Solostar U-100 Insulin 100 unit/mL (3 mL) insulin pen 14 unit subcut BEDTIME 0RF Incruse Ellipta 62.5 mcg/actuation blister with device 1 puff PO DAILY 0RF albuterol sulfate 2.5 mg /3 mL (0.083 %) Solution For Nebulization 2.5 mg INHALATION Q4H PRN (Reason: Respiratory Distress) 0RF Discontinued doxycycline hyclate 100 mg capsule 100 mg PO BID 30 Days Qty: 60 1RF Rx Instructions: x 30 days Discharge Orders: Discharge Order (Routine); Ordered 11/01/21 Ordered By: Elizabeth Gracia Diet: advance to usual diet Activity on Discharge: As tolerated Stand Alone Forms: Patient Portal Discharge page Care Plan Goals: complete resolution of symptoms Health Concerns: Sepsis secondary to diabetic foot infection with abscess Plan of Treatment: Follow up with your primary care provider Follow up with the general surgeon regarding your foot wound Assessment: See discharge summary
--- NOTE | 2021-11-01 15:39 | MHC.CM.PN ---
PT DISCHARGING HOME W/EYAD CURRY W/TIKI THURS 11/04 (PT & FAMILY AWARE) AND APPT W/DR CURTIS ON 11/03 AT 9AM, PT'S S.O. AT BEDSIDE AND WILL TRANSPORT
--- NOTE | 2021-11-01 15:40 | P.F2F_ITS ---
Service Date Service Date: 11/01/21 Encounter Date of encounter: 11/01/21 Reasons for Services Signs and symptoms assessed: Wound care Reason for nursing home: wound care (every other day ) Homebound: Leaving the home is medically contraindicated at this time without the asist of a device and/or another person due th the listed conditions above and below. Reason homebound: weakness related to hospital stay Certification: Based on the above findings, I certify that this patient is confined to the home and needs intermittent nursing home care, physical therapy and/or speech therapy, or continues to need occupational therapy. The patient is under my care, and I have initiated the establishment of the plan of care. The patient will be followed by a physician who will periodically review the plan of care.
--- NOTE | 2021-11-01 16:06 | P.CNID_ITS ---
History of Present Illness Data of Consult Service Date: 11/01/21 Requesting physician: Elizabeth Gracia Primary Care Provider: Unknown Physician HPI Reason for consult: left foot erythema/osteomyelitis She presents with left foot redness and swelling and purulence extending from left second toe amputation site. I had seen her in hospital in August and she was placed on Daptomycin end 09/22. She has had amputation second toe on 09/22/2021. She has no specific cultures seen. Review of Systems Review of Systems: Yes all other systems are reviewed and are negative [facility] Past Medical History Medical History (Updated 11/01/21 @ 16:11 by Angie Padilla MD) Asthma Atherosclerotic cardiovascular disease Atrial tachycardia COPD (chronic obstructive pulmonary disease) COVID-19 vaccine series completed Diabetes Diabetic toe ulcer Essential hypertension GERD (gastroesophageal reflux disease) Hypertension Osteomyelitis Functional capacity: independent ambulation Family History Family History Mother Hx of CABG Sister CAD (coronary artery disease) Family history: reviewed and not pertinent Surgical History Surgical History History of esophagogastroduodenoscopy (EGD) History of toe surgery (09/22/21) Social History Social History Household Members: Family Housing: Apartment Do you presently have visiting nurse or other home services: No Alcohol intake: never Patient Tobacco Use Status: Current everyday Tobacco user Tobacco use type: Cigarette Cigarettes Per Day: 10 Years Smoked: 43 e-Cigarette/Vaping Use: Never Used Second Hand Smoke Exposure: Yes Advance Directives Date on File: 12/28/20 service: No Current occupational status: unemployed Travel History Ebola Risk: Travel/Contact With Anyone From Affected Area/s: No Has Patient Experienced Ebola Symptoms: No Meds Allergies Allergy/AdvReac Type Severity Reaction Status Date / Time Penicillins [PENICILLINS] Allergy Severe RASH Verified 10/31/21 04:32 amoxicillin [AMOXICILLIN] Allergy Intermediate HIVES Verified 10/31/21 04:32 Active Medications: Current Medications Acetaminophen (Acetaminophen 325 Mg Tablet) 650 mg PO Q6H PRN PRN Reason: Pain, Mild (Pain Scale 1-3) Last Admin: 10/31/21 10:59 Dose: 650 mg Documented by: Albuterol Sulfate (Albuterol Sulfate (0.083%) 2.5 Mg/3 Ml Vial.Neb) 2.5 mg INHALE Q4H PRN PRN Reason: Respiratory Distress Last Admin: 11/01/21 11:13 Dose: 2.5 mg Documented by: Amlodipine Besylate (Amlodipine Besylate 10 Mg Tablet) 10 mg PO DAILY [facility]; Protocol Last Admin: 11/01/21 08:46 Dose: 10 mg Documented by: Atorvastatin Calcium (Atorvastatin Calcium 10 Mg Tablet) 10 mg PO BEDTIME MÓNICA Dextrose (Dextrose 50 % 25 Gm/50 Ml Syringe) 25 gm IVPUSH Q15M PRN; Protocol PRN Reason: per Hypoglycemia Standing Ord. Docusate Sodium (Docusate Sodium 100 Mg Capsule) 100 mg PO DAILY [facility] Last Admin: 11/01/21 08:46 Dose: 100 mg Documented by: Fluticasone/Vilanterol (Fluticasone/Vilanterol 100/25 Blst.W.Dev) 1 puff INHALE RDAILY [facility] Last Admin: 11/01/21 11:14 Dose: 1 puff Documented by: Gabapentin (Gabapentin 300 Mg Capsule) 600 mg PO BEDTIME [facility] Last Admin: 10/31/21 21:13 Dose: 600 mg Documented by: Glipizide (Glipizide 10 Mg Tablet) 10 mg PO BIDWM MÓNICA Glucose (Glucose Gel 15 Gm Gel..Gram.) 15 gm PO Q15M PRN; Protocol PRN Reason: per Hypoglycemia Standing Ord. Heparin Sodium (Porcine) (Heparin Sodium,Porcine 5,000 Unit/Ml Vial) 5,000 unit SUBCUT Q12H [facility] Last Admin: 11/01/21 10:40 Dose: 5,000 unit Documented by: Hydrochlorothiazide (Hydrochlorothiazide 12.5 Mg Tablet) 12.5 mg PO DAILY [facility]; Protocol Last Admin: 11/01/21 08:46 Dose: 12.5 mg Documented by: Piperacillin Sod/Tazobactam (Sod 3.375 gm/ Sodium Chloride) 50 mls @ 100 mls/hr IV Q6H [facility] Last Infusion: 11/01/21 11:13 Dose: Infused Documented by: Vancomycin HCl 1,000 mg/ (Sodium Chloride) 270 mls @ 270 mls/hr IV Q12H [facility] Last Infusion: 11/01/21 13:18 Dose: Infused Documented by: Insulin Glargine (Insulin Glargine,Hum.Rec.Anlog 100 Unit/Ml 10 Ml Vial) 14 unit SUBCUT BEDTIME [facility] Last Admin: 10/31/21 21:13 Dose: 14 unit Documented by: Insulin Human Lispro (Insulin Lispro 100 Unit/Ml 3 Ml Vial) 0 unit SUBCUT QIDACHS [facility]; Protocol Last Admin: 11/01/21 11:48 Dose: 8 unit Documented by: Lisinopril (Lisinopril 20 Mg Tablet) 20 mg PO DAILY [facility] Last Admin: 11/01/21 08:46 Dose: 20 mg Documented by: Magnesium Hydroxide (Milk Of Magnesia 30 Ml Oral.Susp) 30 ml PO DAILY PRN PRN Reason: Constipation Metformin HCl (Metformin Hcl 1,000 Mg Tablet) 1,000 mg PO BIDWM [facility] Montelukast Sodium (Montelukast Sodium 10 Mg Tablet) 10 mg PO BEDTIME [facility] Last Admin: 10/31/21 21:13 Dose: 10 mg Documented by: Morphine Sulfate (Morphine Sulfate 2 Mg/Ml Cartridge) 2 mg IVPUSH Q4H PRN; Protocol PRN Reason: Pain, Severe (Pain Scale 7-10) Last Admin: 11/01/21 11:47 Dose: 2 mg Documented by: Nicotine (Nicotine 21 Mg Patch.Td24) 21 mg TRANSDERMA DAILY [facility] Last Admin: 11/01/21 08:48 Dose: 21 mg Documented by: Oxycodone HCl (Oxycodone Hcl Immed Release 5 Mg Tablet) 5 mg PO Q6H PRN PRN Reason: Pain, Moderate (Pain Scale 4-6 Last Admin: 11/01/21 06:21 Dose: 5 mg Documented by: Pharmacy Consult (Consult Rx Perform Med Rec) 1 each MISCELLANE ONCE PRN PRN Reason: Consult order Pharmacy Consult (Consult Rx Vancomycin Dosing) 1 each MISCELLANE DAILY PRN PRN Reason: Consult order Sodium Chloride (0.9 % Sodium Chloride Flush 3 Ml Syringe) 3 ml IVFLUSH QSHIFT [facility] Last Admin: 11/01/21 08:46 Dose: 3 ml Documented by: Tiotropium [place] (Tiotropium [place] 18 Mcg Cap.W.Dev) 1 puff INHALE RDAILY [facility] Last Admin: 11/01/21 11:13 Dose: 1 puff Documented by: Home Medications Medication Instructions Recorded Confirmed Last Taken Type albuterol sulfate 90 mcg/actuation 2 puff PO Q4H PRN 12/24/20 10/31/21 10/30/21 History aerosol inhaler (ProAir HFA) aspirin 81 mg tablet,delayed 1 tab PO DAILY 12/24/20 10/31/21 10/30/21 History release atorvastatin 10 mg tablet 1 tab PO DAILY 12/24/20 10/31/21 10/30/21 History fluticasone propionate 115 2 puff INHALATION BID 12/24/20 10/31/21 10/30/21 History mcg-salmeterol 21 mcg/actuation HFA inhaler (Advair HFA) gabapentin 300 mg capsule 2 cap PO BEDTIME 12/24/20 10/31/21 10/30/21 History glipizide 5 mg-metformin 500 mg 2 tab PO BID 12/24/20 10/31/21 10/30/21 History tablet montelukast 10 mg tablet 1 tab PO BEDTIME 12/24/20 10/31/21 10/30/21 History albuterol sulfate 2.5 mg INHALATION Q4H PRN 07/11/21 10/31/21 10/30/21 History insulin glargine 100 unit/mL (3 14 unit SUBCUT BEDTIME 10/31/21 10/31/21 10/30/21 History mL) subcutaneous pen (Lantus Solostar U-100 Insulin) lisinopril 20 1 tab PO DAILY 10/31/21 10/31/21 10/30/21 History mg-hydrochlorothiazide 12.5 mg tablet umeclidinium 62.5 mcg/actuation 1 puff PO DAILY 10/31/21 10/31/21 10/30/21 History blister powder for inhalation (Incruse Ellipta) Physical Exam Vital Signs: Vital Signs: Last Vital Signs Temp 98.2 F 11/01/21 15:11 Pulse 89 11/01/21 15:11 Resp 18 11/01/21 15:11 BP 155/67 H 11/01/21 15:11 Pulse Ox 97 11/01/21 15:11 BMI result Body Mass Index 25.7 Const: General: cooperative HEENT: Head: Yes normal to inspection Resp: Effort & Inspection: normal respiratory effort Cardio: Rate: regular rate Rhythm: regular rhythm GI: Palpation (GI): Soft to palpation and nontender Extrem: Other: left foot warm and swollen purulence suture area Results Labs CBC & Chem 7: 11/01/21 06:17 11/01/21 06:17 Labs: Short CBC 11/01/21 Range/Units 06:17 WBC 13.0 H (4.8-10.8) X10*3/uL Hgb 9.5 L (12.0-16.0) g/dl Hct 30.6 L (37.0-47.0) % Plt Count 214 (160-400) X10*3/uL BMP 11/01/21 06:17 Sodium 134 L Potassium 4.4 Chloride 99 Carbon Dioxide 28 BUN 12 D Creatinine 0.76 Calcium 8.1 L Microbiology Microbiology Results: Microbiology 10/31/21 06:38 Blood - Venous Blood Culture - Preliminary No growth after 24 hours. 10/31/21 06:38 Blood - Venous Blood Culture - Preliminary No growth after 24 hours. 10/31/21 Unknown Foot Left Gram Stain - Final 10/31/21 Unknown Foot Left Routine Culture - Preliminary Culture in progress. Assessment and Plan (1) Left foot infection: Status: Acute (2) Osteomyelitis: Status: Acute There is concern for osteomyelitis and pathologic fracture second metatarsal due to weakened bone from osteomyelitis. Organsims include staph and strep less likely gram negatives. Patient also walks barefoot on occasion so that is concerning for pressure to area. Plan Continue Vancomycin When improved Po linezolid if covered for four weeks at home. Follow with surgery ?TMA if not improved. Second round of IV antibiotics not warranted especially since just finished.
--- NOTE | 2021-11-10 11:37 | OP_ITS ---
SURGEON: Nayana Sosa INDICATIONS: The patient is a 51-year-old female, diabetic, recently had a toe amputation site infected and eventually was doing well. She comes in now with drainage of the area at the amp site, foot being very congruent on the plantar midfoot area. CT scan did not reveal any fluid collection, but there was purulent material coming up from the open scar of the amputation base. As a result, she is coming to the OR for exploration findings and deep plantar fascia abscess with moderate purulent drainage. PREOPERATIVE DIAGNOSIS: Left foot infection. POSTOPERATIVE DIAGNOSIS: Left foot infection. PROCEDURE PERFORMED: Incision and drainage of left plantar deep fascia abscess. ESTIMATED BLOOD LOSS: COMPLICATIONS: ANESTHESIA: General. ASSISTANTS: SPECIMENS: DESCRIPTION OF PROCEDURE: The patient was brought to the operating room, and under Anesthesia guidance, was intubated. Her left foot was prepped and draped in a standard surgical fashion. Initially, probing of the base of the amputated toe with a snap revealed return of purulent material. Snap was then put deeper and it was retracted, went straight down into what seemed to be the deep plantar fascial space going straight down to the mid foot. moderate amount of purulent drainage was had. This area was now pushed and squeezed and drainage of purulent material was obtained. The area was irrigated. Then the forceps was placed deep into the space and around the midfoot. Around the track of this forceps, another incision was made going deep into that area titrating deep plantar fascia space, such that the purulent drainage material distally to drain now from the midfoot area. Once we had this open communication then the area was irrigated from the top at the toes going through the space and coming out of the bottom. There was another area going to the medial foot that was a little erythematous as well. Once we irrigated and there was normal purulent drainage packing, a quarter inch iodoform packing gauze. It was fashioned such that it went from the toe, came out through the distal deep fascia space, probed out at the midfoot and a loop was formed area distally was packed with the gauze. Dry gauze and bandage were then placed. At the end of the case, all sponge, instrument, and needle counts were correct. Estimated blood loss was minimal. Culture was sent off. Patient was extubated and returned stable to the recovery room. Nayana Sosa SR/AMIRAH / [id number]
== END 2021-11-01 16:45 | disposition home health service (06) | DRG 349 ==
LOC: HO.ED 06:54 → HO.EDOVER 09:37 → HO.S3 12:24
PROVIDERS: Emergency Medicine; Surgery; Admitting Provider Physician Assistant Medical; Emergency Provider Emergency Medicine; PCP Nurse Practitioner Family; Visit Provider Nurse Practitioner Acute Care
PROC: 0H9NXZZ Drainage of Left Foot Skin, External Approach (ICD-10-PCS; principal; 2021-10-31 17:30)
DX: T87.44 Infection of amputation stump, left lower extremity (principal); A41.9 Sepsis, unspecified organism; E11.42 Type 2 diabetes mellitus with diabetic polyneuropathy; J44.1 Chronic obstructive pulmonary disease with (acute) exacerbation; E11.69 Type 2 diabetes mellitus with other specified complication; L03.116 Cellulitis of left lower limb; F17.210 Nicotine dependence, cigarettes, uncomplicated; I10 Essential (primary) hypertension; E11.65 Type 2 diabetes mellitus with hyperglycemia; K21.9 Gastro-esophageal reflux disease without esophagitis; Z71.6 Tobacco abuse counseling; Z20.822 Contact with and (suspected) exposure to COVID-19; M86.9 Osteomyelitis, unspecified; Z88.0 Allergy status to penicillin; Z79.4 Long term (current) use of insulin; Z79.83 Long term (current) use of bisphosphonates; Z79.84 Long term (current) use of oral hypoglycemic drugs; Z79.899 Other long term (current) drug therapy
CPT/HCPCS: 36415; 73700; 80048; 80076; 80307; 81001; 82947; 83605; 85025; 85027; 85610; 85652; 86140; 87040; 87071; 87147; 87205; 87635; 94640; 96365; 96367; 96375; 96376; 99284; 99285; J1100; J2250; J2270; J2405; J2543; J3010; J3370

== ENCOUNTER 2021-11-03 08:30 | Outpatient (RCR) | payer MEDICAID, SELFPAY | END 2022-04-07 14:04 | disposition home or self-care (01) | LOC: HO.WCC 08:30 | PROVIDERS: PCP Nurse Practitioner Family; Visit Provider Surgery | DX: S91.302D Unspecified open wound, left foot, subsequent encounter (principal); E11.40 Type 2 diabetes mellitus with diabetic neuropathy, unspecified; I10 Essential (primary) hypertension; F17.210 Nicotine dependence, cigarettes, uncomplicated | CPT/HCPCS: 11043; 11046; 99212; 99213; 99214 ==

== ENCOUNTER 2021-11-18 11:54 | Inpatient (IN) | payer MEDICAID, SELFPAY ==
[2021-11-18] VITALS (10 sets, daily range): BP systolic 146–168; BP diastolic 62–84; PULSE 95–112; RESP 12–20; TEMP 36.7–37.5; O2SAT 95–98; BMI 29.4
--- NOTE | ~2021-11-18 | XR_ITS ---
EXAMINATION: XR FOOT, LEFT CLINICAL INFORMATION: Left foot cellulitis. Rule out subcutaneous air. COMPARISON: CT scan of October 31, 2021 and x-ray of July 10, 2021 TECHNIQUE: AP, lateral, and oblique views of the left foot. FINDINGS: Patient appears be status post osteotomy with periosteal new bone formation involving the distal second metatarsal. There is bony density distal to this is similar to previous CT scan. There is a small amount of gas seen about the distal medial aspect of the remaining bony density and question if this may be air within an ulceration versus true subcutaneous air. There is a large amount of edema present There is a plantar calcaneal spur present. XR/XR foot LT 2V IMPRESSION: Status post osteotomy distal second metatarsal with periosteal new bone formation and irregular bony densities distal to that which may be postoperative in nature or related to resorption of bone. Likely left gas about the distal most calcification of the second toe which may lie within an ulceration or in the subcutaneous tissues.
--- NOTE | ~2021-11-18 | MR_ITS ---
EXAMINATION: MRI FOOT WITHOUT AND WITH CONTRAST, LEFT CLINICAL INFORMATION: Diabetic wound. COMPARISON: Radiographs 11/28/2021. MRI 08/21/2021. TECHNIQUE: MRI without and with intravenous administration of 7.5 mL of Gadavist is performed on the left foot. FINDINGS: There is been resection of the 2nd toe and distal metatarsal. There is a soft tissue ulceration at the plantar aspect of the midfoot with a peripherally enhancing sinus tract extending 1.5 cm to the undersurface of the flexor digitorum longus and flexor hallucis longus tendons. This complex, gas containing collection/sinus tract extends proximally to the hindfoot within the flexor digitorum brevis muscle, approximately 7 cm, with phlegmonous change in the medial soft tissues. This sinus tract also extends distally several centimeters, extending through the plantar fascia and into the subcutaneous soft tissues distal to the distal 2nd metatarsal amputation. The distal aspect of the amputation is irregular with edema and enhancement compatible with osteomyelitis. There is also mild marrow edema and enhancement of the distal 4th and 5th metatarsals which is not directly contiguous with the soft tissue infection and may be reactive. The 4th metatarsal head on a similar appearance on the prior MRI. MR/MR foot LT wo/w con IMPRESSION: There is a plantar soft tissue ulcer with sinus tract/abscess extending longitudinally the length of the flexor digitorum brevis muscle, and dorsally superficial to the 2nd metatarsal osteotomy where there is evidence of underlying osteomyelitis.
--- NOTE | 2021-11-18 12:13 | ED.SKABFB ---
HPI - Skin/Abscess/Foreign Bdy General Chief complaint: Extremity Injury, Lower Stated complaint: FOOT PAIN,H/O INFECTION Time Seen by Provider: 11/18/21 12:09 Source: patient and EMS Mode of arrival: EMS Limitations: no limitations History of Present Illness HPI narrative: 51-year-old female history of left foot infection and osteomyelitis status post left 2nd toe amputation secondary to infection and osteomyelitis. Patient is on linezolid p.o. antibiotic for left foot cellulitis, came in today for increased pain, patient was evaluated by wound clinic 2 days ago and patient was told there is no more foot infection. Related Data Home Medications Medication Instructions Recorded Confirmed albuterol sulfate 90 mcg/actuation 2 puff PO Q4H PRN wheezing 12/24/20 11/18/21 aerosol inhaler (ProAir HFA) aspirin 81 mg tablet,delayed 1 tab PO DAILY 12/24/20 11/18/21 release atorvastatin 10 mg tablet 1 tab PO DAILY 12/24/20 11/18/21 fluticasone propionate 115 2 puff inhalation BID 12/24/20 11/18/21 mcg-salmeterol 21 mcg/actuation HFA inhaler (Advair HFA) gabapentin 300 mg capsule 2 cap PO BEDTIME 12/24/20 11/18/21 glipizide 5 mg-metformin 500 mg 2 tab PO BID 12/24/20 11/18/21 tablet albuterol sulfate 2.5 mg inhalation Q4H PRN 07/11/21 11/18/21 Respiratory Distress insulin glargine 100 unit/mL (3 10 unit subcut BEDTIME 10/31/21 11/18/21 mL) subcutaneous pen (Lantus Solostar U-100 Insulin) lisinopril 20 1 tab PO DAILY 10/31/21 11/18/21 mg-hydrochlorothiazide 12.5 mg tablet umeclidinium 62.5 mcg/actuation 1 puff PO DAILY 10/31/21 11/18/21 blister powder for inhalation (Incruse Ellipta) ibuprofen 600 mg tablet 600 mg PO TID PRN Abdominal 11/18/21 11/18/21 Discomfort Previous Rx's Medication Instructions Recorded amlodipine 10 mg tablet 10 mg PO DAILY 30 days #30 tabs 12/27/20 linezolid 600 mg tablet (Zyvox) 600 mg PO Q12H 28 days #56 tabs 11/01/21 Allergies Allergy/AdvReac Type Severity Reaction Status Date / Time Penicillins [PENICILLINS] Allergy Severe RASH Verified 10/31/21 04:32 amoxicillin [AMOXICILLIN] Allergy Intermediate HIVES Verified 10/31/21 04:32 Review of Systems Review of Systems: All other systems are reviewed and are negative Constitutional: Reports as per HPI and Reports no additional constitutional complaints Eyes: Reports as per HPI and Reports no additional eye complaints Reports system reviewed and no additional complaints, except as documented Cardiovascular: Reports as per HPI and Reports no additional cardiovascular complaints Respiratory: Reports as per HPI and Reports no additional respiratory complaints Gastrointestinal: Reports as per HPI and Reports no additional gastrointestinal complaints Genitourinary: Reports no additional female genitourinary complaints Musculoskeletal: Reports no additional musculoskeletal complaints Skin/Breast: Reports system reviewed and no additional complaints, except as docu Psychiatric: Reports no additional psychiatric complaints Endocrine: Reports no additional endocrine complaints Hematologic/Lymphatic: Reports no additional hematologic/lymphatic complaints Allergic/Immunologic: Reports no additional allergic/immunologic complaints Reports system reviewed and no additional complaints, except as documented and Reports Abnormal speech present [facility] Past Medical History Medical History Asthma Atherosclerotic cardiovascular disease Atrial tachycardia COPD (chronic obstructive pulmonary disease) COVID-19 vaccine series completed Diabetes Diabetic toe ulcer Essential hypertension GERD (gastroesophageal reflux disease) Hypertension Osteomyelitis Surgical History History of esophagogastroduodenoscopy (EGD) History of toe surgery (09/22/21) Family History Family History Mother Hx of CABG Sister CAD (coronary artery disease) Social History Social History Household Members: Family Housing: Apartment Do you presently have visiting nurse or other home services: No Alcohol intake: never Patient Tobacco Use Status: Current everyday Tobacco user Tobacco use type: Cigarette Cigarettes Per Day: 10 Years Smoked: 43 e-Cigarette/Vaping Use: Never Used Second Hand Smoke Exposure: Yes Advance Directives: No Advance Directives Information Provided: No Advance Directives Date on File: 12/28/20 service: No Current occupational status: unemployed Physical Exam Vital Signs: Vital Signs: Last Vital Signs Temp 99.5 F 11/18/21 15:51 Pulse 100 11/18/21 13:53 Resp 16 11/18/21 13:53 BP 155/70 H 11/18/21 13:53 Pulse Ox 98 11/18/21 13:53 O2 Del Method 11/18/21 13:53 O2 Flow Rate 2 11/18/21 13:53 BMI result Body Mass Index 29.4 Vital signs have been reviewed as appeared to be correct. Blood pressure normal. Heart rate normal. Respiration rate normal. Temperature normal. Oxygen saturation normal. Appearance: Alert. Oriented X3. No acute distress. Head: Normal external exam. Normocephalic. Atraumatic. No Witt signs noted. No raccoon eyes noted Eyes: PERRLA. EOMI. Conjunctiva and sclera normal. Eyelids normal. ENT: TM's Normal. Pharynx normal. Uvula midline. Moist mucous membranes. No trismus noted. No drooling noted. No muffled voice noted. Neck: Normal inspection. Neck supple. FROM. No adenopathy. Thyroid Normal. No meningeal signs. No neck mass noted. CVS: Normal heart rate and rhythm. Heart sound normal. No murmurs noted. Pulses normal throughout. Respiratory: No respiratory distress. Painless inspiration. Breath sounds normal. No wheezes/rales/rhonchi noted. Chest nontender. No accessory muscle usage noted or decreased air movement noted. Abdomen: Soft and nontender. Bowel sounds normal in all 4 quadrants. No distention noted. No organomegaly noted. No visible injury noted. Back: No CVA tenderness. Full range of motion noted. Skin: Skin warm and dry. Normal skin color. Normal skin turgor. No rashes/lesions/lacerations noted. Extremities: 5 x 3 cm erythematous and redness and tenderness on the medial aspect of left foot, fluctuation at the medial aspect of the left foot. Neuro: Oriented X 3. Cranial nerve exam: II-XII are grossly intact No motor deficit. No sensory deficit. Reflexes normal. Course Course Course Narrative: Assessment and plan. 51-year-old female history of diabetes, asthma/COPD, GERD, hypertension, recently had left 2nd toe amputation for osteomyelitis, came in with left leg foot cellulitis with abscess. That was I and D in the emergency department. Patient will receive Zosyn (penicillin listed as an allergy for the patient,.confirming old chart patient received Zosyn in the past with no side effect). And vancomycin and will admit the patient for IV antibiotic and further surgery consultation. MDM - Skin/Abscess/Foreign Bdy Medical Records Attestation: I reviewed the patient's medical records. Lab Data Attestation: I reviewed the patient's lab results. Result diagrams: 11/18/21 12:39 11/18/21 13:06 Labs: Lab Results 11/18/21 11/18/21 11/18/21 Range/Units 12:39 12:39 12:39 WBC 11.9 H (4.8-10.8) X10*3/uL RBC 4.72 (4.20-5.50) X10*6/uL Hgb 11.2 L (12.0-16.0) g/dl Hct 36.0 L (37.0-47.0) % MCV 76.3 L (80.0-98.0) fL MCH 23.7 L (27.0-33.0) pg MCHC 31.1 (31.0-35.0) g/dl RDW 17.2 H (11.0-16.0) % Plt Count 266 (160-400) X10*3/uL MPV 10.6 (9.4-12.3) fL Immature Gran % (Auto) 0.4 (0.0-0.4) % Neut % (Auto) 85.4 H (45-73) % Lymph % (Auto) 8.8 L (20-40) % [place] % (Auto) 4.4 (2-11) % Eos % (Auto) 0.7 (0-4) % Baso % (Auto) 0.3 (0-2) % Lymph # (Auto) 1.1 L (1.2-4.9) X10*3/uL [place] # (Auto) 0.5 (0.1-1.2) X10*3/uL Eos # (Auto) 0.1 (0.0-0.4) X10*3/uL Baso # (Auto) 0.0 (0.0-0.2) X10*3/uL Abs Immat Gran (auto) 0.05 H (0.00-0.03) X10*3/uL Absolute Neuts (auto) 10.2 H (2.0-8.3) x10*3/uL Absolute Nucleated RBC 0.000 (0.0-0.012) X10*3/uL Nucleated RBC % (auto) 0.0 (0.0-0.2) /100WBC ESR 42 H (0-20) MM/HR Sodium (135-145) mmol/L Potassium (3.3-5.1) mmol/L Chloride (96-108) mmol/L Carbon Dioxide (22-29) mmol/L Anion Gap (12-20) BUN (9-16) mg/dL Creatinine (0.5-1.4) mg/dL Estim Creat Clear Calc Estimated GFR Random Glucose (60-115) mg/dL Lactic Acid 1.8 (0.5-2.0) mmol/L Calcium (8.4-10.2) mg/dL C-Reactive Protein (< or = 0.50) mg/dL Lipase (8-78) U/L COVID-19 (KATHLEEN) (Negative) COVID-19 Clin Com 11/18/21 11/18/21 Range/Units 13:06 13:13 WBC (4.8-10.8) X10*3/uL RBC (4.20-5.50) X10*6/uL Hgb (12.0-16.0) g/dl Hct (37.0-47.0) % MCV (80.0-98.0) fL MCH (27.0-33.0) pg MCHC (31.0-35.0) g/dl RDW (11.0-16.0) % Plt Count (160-400) X10*3/uL MPV (9.4-12.3) fL Immature Gran % (Auto) (0.0-0.4) % Neut % (Auto) (45-73) % Lymph % (Auto) (20-40) % [place] % (Auto) (2-11) % Eos % (Auto) (0-4) % Baso % (Auto) (0-2) % Lymph # (Auto) (1.2-4.9) X10*3/uL [place] # (Auto) (0.1-1.2) X10*3/uL Eos # (Auto) (0.0-0.4) X10*3/uL Baso # (Auto) (0.0-0.2) X10*3/uL Abs Immat Gran (auto) (0.00-0.03) X10*3/uL Absolute Neuts (auto) (2.0-8.3) x10*3/uL Absolute Nucleated RBC (0.0-0.012) X10*3/uL Nucleated RBC % (auto) (0.0-0.2) /100WBC ESR (0-20) MM/HR Sodium 135 (135-145) mmol/L Potassium 3.6 (3.3-5.1) mmol/L Chloride 98 (96-108) mmol/L Carbon Dioxide 29 (22-29) mmol/L Anion Gap 12 (12-20) BUN 10 (9-16) mg/dL Creatinine 0.78 (0.5-1.4) mg/dL Estim Creat Clear Calc 83.9 Estimated GFR > 60 Random Glucose 318 H (60-115) mg/dL Lactic Acid (0.5-2.0) mmol/L Calcium 8.6 D (8.4-10.2) mg/dL C-Reactive Protein 5.59 H (< or = 0.50) mg/dL Lipase 8 (8-78) U/L COVID-19 (KATHLEEN) Negative (Negative) COVID-19 Clin Com See Note Imaging Data Left foot x-ray: Attestation: I personally reviewed and interpreted this imaging study as follows: Radiologist's impression: Status post osteotomy distal second metatarsal with periosteal new bone formation and irregular bony densities distal to that which may be postoperative in nature or related to resorption of bone. Likely left gas about the distal most calcification of the second toe which may lie within an ulceration or in the subcutaneous tissues. Procedures Abscess I/D Site: foot Side (if applicable): left Sedation/analgesia: none Local Anesthetic: lidocaine 1% Amount of anesthesia used (mL): 3 Technique: needle aspiration and incised with blade Amount of fluid expressed (mL): 7 Sent for culture/gram staining?: Yes Packing used?: none Discharge Plan Discharge Clinical Impression: Cellulitis of foot, left, Abscess of left foot Patient Disposition: Admitted As Inpatient
[2021-11-18 12:46] LABS: MANUAL DIFF FLAG NO
[2021-11-18 12:47] LABS: Basophils Percent Auto 0.3 % (0-2); Eosinophils Absolute Auto 0.1 X10*3/uL (0.0-0.4); Eosinophils Percent Auto 0.7 % (0-4); Hemoglobin 11.2 g/dl (12.0-16.0); Imm Gran Abs Auto 0.05 X10*3/uL (0.00-0.03); Imm Gran Pct Auto 0.4 % (0.0-0.4); Lymphocytes Absolute Auto 1.1 X10*3/uL (1.2-4.9); Lymphocytes Percent Auto 8.8 % (20-40); Mean Corpuscular HGB Conc 31.1 g/dl (31.0-35.0); Mean Corpuscular Hemoglobin 23.7 pg (27.0-33.0); Mean Corpuscular Volume 76.3 fL (80.0-98.0); Mean Platelet Volume 10.6 fL (9.4-12.3); Monocytes Absolute Auto 0.5 X10*3/uL (0.1-1.2); Monocytes Percent Auto 4.4 % (2-11); Neutrophils Absolute Auto 10.2 x10*3/uL (2.0-8.3); Neutrophils Percent Auto 85.4 % (45-73); Platelet Count 266 X10*3/uL (160-400); Red Blood Count 4.72 X10*6/uL (4.20-5.50); Red Cell Distribution Width 17.2 % (11.0-16.0); White Blood Count 11.9 X10*3/uL (4.8-10.8)
[2021-11-18] MEDS: HYDROmorphone HCl 2 MG/ML VIAL IVPUSH (12:57)
[2021-11-18 13:00] LABS: Lactic Acid 1.8 mmol/L (0.5-2.0)
[2021-11-18] MEDS: Lidocaine HCl 1 % MPF 5 ML VIAL SUBCUT (13:17)
[2021-11-18] MEDS: Piperacillin Sodium/Tazobactam 3.375 GM in 0.9 % Sodium Chloride 50 ML IV ×3 (13:17→23:51)
[2021-11-18] MEDS: 0.9 % Sodium Chloride 1,000 ML 999 ML IV (13:19)
[2021-11-18 13:31] LABS: Anion Gap 12 (12-20); Blood Urea Nitrogen 10 mg/dL (9-16); Calcium 8.6 mg/dL (8.4-10.2); Carbon Dioxide 29 mmol/L (22-29); Chloride 98 mmol/L (96-108); Creatinine Clr Calc Pharmacy 83.9; Estimated Glomerular Filt Rate > 60; Glucose Random 318 mg/dL (60-115); Lipase 8 U/L (8-78); Potassium 3.6 mmol/L (3.3-5.1); Sodium 135 mmol/L (135-145)
[2021-11-18 13:33] LABS: COVID-19 Test Negative (Negative)
[2021-11-18] MEDS: vancomycin HCL 1,000 MG in 0.9 % Sodium Chloride 250 ML 270 MG IV (13:48)
[2021-11-18 14:49] LABS: C Reactive Protein 5.59 mg/dL (< or = 0.50)
--- NOTE | 2021-11-18 14:54 | PM.IMHP ---
History of Present Illness Date of Service: 11/18/21 Attending physician on admission: Jaren Schrader Chief Complaint: left foot pain This is a 51-year-old female with history of diabetes presents to the emergency department with left foot pain. Patient was admitted to the hospital in August with diabetic foot infection/ osteomyelitis of the 2nd proximal phalanx and 2nd metatarsal head as well as an abscess. She was discharged with 6 weeks of IV daptomycin. She had left 2nd toe amputation in September. She returned to the hospital at the end of October with recurrent Infection/ abscess and underwent I&D and was discharged with Linezolid for 28 days. she reports that she has been following in the [facility] but she did miss her appointment yesterday. She returns to the hospital today with increasing pain. She denies any associated fever or chills. she received a dose of IV Dilaudid for pain control. She had I&D in the ED and was started on broad-spectrum antibiotics and the decision was made to admit her for further management. Vaccination status: Wiz[employer] x3 Review of Systems Review of Systems: Yes all other systems are reviewed and are negative Constitutional: Constitutional: Denies chills and Denies fever(s) Cardiovascular: Cardiovascular: Denies chest pain, Denies palpitations and Denies dyspnea Respiratory: Respiratory: Denies cough and Denies dyspnea Gastrointestinal: Gastrointestinal: Denies abdominal pain, Denies diarrhea, Denies nausea and Denies vomiting Endocrine: Endocrine: Denies palpitations [facility] Medical History Asthma Atherosclerotic cardiovascular disease Atrial tachycardia COPD (chronic obstructive pulmonary disease) COVID-19 vaccine series completed Diabetes Diabetic toe ulcer Essential hypertension GERD (gastroesophageal reflux disease) Hypertension Osteomyelitis Family History Mother Hx of CABG Sister CAD (coronary artery disease) Surgical History History of esophagogastroduodenoscopy (EGD) History of toe surgery (09/22/21) Social History Household Members: Family Housing: Apartment Do you presently have visiting nurse or other home services: No Alcohol intake: never Patient Tobacco Use Status: Current everyday Tobacco user Tobacco use type: Cigarette Cigarettes Per Day: 10 Years Smoked: 43 e-Cigarette/Vaping Use: Never Used Second Hand Smoke Exposure: Yes Advance Directives: No Advance Directives Information Provided: No Advance Directives Date on File: 12/28/20 service: No Current occupational status: unemployed Meds Allergies Allergy/AdvReac Type Severity Reaction Status Date / Time Penicillins [PENICILLINS] Allergy Severe RASH Verified 10/31/21 04:32 amoxicillin [AMOXICILLIN] Allergy Intermediate HIVES Verified 10/31/21 04:32 Active Medications: Current Medications Acetaminophen (Acetaminophen 325 Mg Tablet) 650 mg PO Q6H PRN PRN Reason: Pain, Mild (Pain Scale 1-3) Docusate Sodium (Docusate Sodium 100 Mg Capsule) 100 mg PO DAILY PRN PRN Reason: Constipation Heparin Sodium (Porcine) (Heparin Sodium,Porcine 5,000 Unit/Ml Vial) 5,000 unit SUBCUT Q12H MÓNICA Piperacillin Sod/Tazobactam (Sod 3.375 gm/ Sodium Chloride) 50 mls @ 100 mls/hr IV Q6H MÓNICA Morphine Sulfate (Morphine Sulfate 4 Mg/Ml Cartridge) 2 mg IVPUSH Q4H PRN; Protocol PRN Reason: Pain, Severe (Pain Scale 7-10) Ondansetron HCl (Ondansetron Hcl 4 Mg/2 Ml Vial) 4 mg IVPUSH Q8H PRN PRN Reason: Nausea and Vomiting Oxycodone HCl (Oxycodone Hcl Immed Release 5 Mg Tablet) 5 mg PO Q6H PRN PRN Reason: Pain, Severe (Pain Scale 7-10) Pharmacy Consult (Consult Rx Perform Med Rec) 1 each MISCELLANE ONCE PRN PRN Reason: Consult order Pharmacy Consult (Consult Rx Vancomycin Dosing) 1 each MISCELLANE DAILY PRN PRN Reason: Consult order Sodium Chloride (0.9 % Sodium Chloride Flush 3 Ml Syringe) 3 ml IVFLUSH QSHIFT [facility] Home Medications Medication Instructions Recorded Confirmed Last Taken Type albuterol sulfate 90 mcg/actuation 2 puff PO Q4H PRN wheezing 12/24/20 11/18/21 10/30/21 History aerosol inhaler (ProAir HFA) aspirin 81 mg tablet,delayed 1 tab PO DAILY 12/24/20 11/18/21 10/30/21 History release atorvastatin 10 mg tablet 1 tab PO DAILY 12/24/20 11/18/21 10/30/21 History fluticasone propionate 115 2 puff inhalation BID 12/24/20 11/18/21 10/30/21 History mcg-salmeterol 21 mcg/actuation HFA inhaler (Advair HFA) gabapentin 300 mg capsule 2 cap PO BEDTIME 12/24/20 11/18/21 10/30/21 History glipizide 5 mg-metformin 500 mg 2 tab PO BID 12/24/20 11/18/21 10/30/21 History tablet albuterol sulfate 2.5 mg inhalation Q4H PRN 07/11/21 11/18/21 10/30/21 History Respiratory Distress insulin glargine 100 unit/mL (3 10 unit subcut BEDTIME 10/31/21 11/18/21 10/30/21 History mL) subcutaneous pen (Lantus Solostar U-100 Insulin) lisinopril 20 1 tab PO DAILY 10/31/21 11/18/21 10/30/21 History mg-hydrochlorothiazide 12.5 mg tablet umeclidinium 62.5 mcg/actuation 1 puff PO DAILY 10/31/21 11/18/21 10/30/21 History blister powder for inhalation (Incruse Ellipta) ibuprofen 600 mg tablet 600 mg PO TID PRN Abdominal 11/18/21 11/18/21 Unknown History Discomfort Physical Exam Vital Signs and Narrative: Vital Signs: Last Vital Signs Temp 98.8 F 11/18/21 12:09 Pulse 100 11/18/21 13:53 Resp 16 11/18/21 13:53 BP 155/70 H 11/18/21 13:53 Pulse Ox 98 11/18/21 13:53 O2 Del Method 11/18/21 13:53 O2 Flow Rate 2 11/18/21 13:53 BMI result Body Mass Index 29.4 Const: General: cooperative, comfortable, alert and awake Orientation/consciousness: patient oriented x3 Resp: Effort & Inspection: normal respiratory effort and able to speak in complete sentences Auscultation: clear to auscultation bilaterally Cardio: Rate: regular rate Heart sounds: S1 normal heart sound present and S2 normal heart sound present GI: Inspection: No distended Palpation (GI): Soft to palpation and nontender Skin: Other: Neuro: Other: grossly intact, no focal deficits General: patient oriented x3 Extrem: Other: able to move all 4 extremities spontaneously Results Labs CBC and Chem 7: 11/18/21 12:39 11/18/21 13:06 Labs: Laboratory Results - last 24 hr 11/18/21 11/18/21 11/18/21 12:39 12:39 13:06 MCV 76.3 L MCH 23.7 L MCHC 31.1 RDW 17.2 H Plt Count 266 MPV 10.6 Immature Gran % (Auto) 0.4 Neut % (Auto) 85.4 H Lymph % (Auto) 8.8 L [place] % (Auto) 4.4 Eos % (Auto) 0.7 Baso % (Auto) 0.3 Lymph # (Auto) 1.1 L [place] # (Auto) 0.5 Eos # (Auto) 0.1 Baso # (Auto) 0.0 Abs Immat Gran (auto) 0.05 H Absolute Neuts (auto) 10.2 H Absolute Nucleated RBC 0.000 Nucleated RBC % (auto) 0.0 Anion Gap 12 Estim Creat Clear Calc 83.9 Estimated GFR > 60 Random Glucose 318 H Lactic Acid 1.8 Calcium 8.6 D C-Reactive Protein 5.59 H Lipase 8 COVID-19 (KATHLEEN) COVID-19 Clin Com 11/18/21 13:13 MCV MCH MCHC RDW Plt Count MPV Immature Gran % (Auto) Neut % (Auto) Lymph % (Auto) [place] % (Auto) Eos % (Auto) Baso % (Auto) Lymph # (Auto) [place] # (Auto) Eos # (Auto) Baso # (Auto) Abs Immat Gran (auto) Absolute Neuts (auto) Absolute Nucleated RBC Nucleated RBC % (auto) Anion Gap Estim Creat Clear Calc Estimated GFR Random Glucose Lactic Acid Calcium C-Reactive Protein Lipase COVID-19 (KATHLEEN) Negative COVID-19 Clin Com See Note Assessment and Plan (1) Abscess of left foot: Status: Acute Plan This is a 51-year-old female with history of diabetes, asthma/COPD, GERD, hypertension, recently underwent left 2nd toe amputation for osteomyelitis who presents to the emergency department with increasing pain, redness and swelling of her left foot left diabetic foot infection/cellulitis/abscess no evidence of sepsis at this time s/p 6 weeks of IV daptomycine in August; second toe amputation 09/22; d/c with Linezolid 11/01 -IV vancomycin and zosyn -ID consultation -General surgery consultation - had I&D on last admission, I&D done in ED today -follow wound cultures, blood cultures -will obtain MRI of foot to eval for osteo/extent of abscess -pain control DM hold oral meds (glipizide/metformin) Continue Lantus SSI, POCs HTN will continue home meds, Norvasc, lisinopril, HCTZ monitor blood pressure closely Tobacco dependence Smoking cessation advised -NRT asthma/copd no acute exacerbation at this time Continue home inhalers Hyperlipidemia Continue statin Peripheral neuropathy Continue gabapentin h/o atrial tachycardia not currently on any rate control agent dvt ppx - heparin code status - full code Attending - dr. Schrader Due to foot infection and history of diabetes putting her at risk for severe infection she will likely require two midnight stay in the hospital for IV antibiotics, specialist consultation and adequate pain control. Quality Stroke Does the patient have a stroke diagnosis?: No VTE Prior VTE?: No VTE Risk Level:: Medical - moderate - high VTE Device Contraindication: N/A - Device Ordered VTE Drug Contraindication: N/A - Med Ordered
--- NOTE | 2021-11-18 15:14 | PM.CNGS ---
History of Present Illness Consult details Consult date: 11/18/21 Narrative: 51F referred for a foot abscess. She has a long history of left foot problems with a toe amputation of he 2nd toe for osteomyelitis with Dr. Cantu last September 2021. She had udnergone multiple I and D's and debridement of the same foot with Dr. Sosa the past 2 weeks. She came to the ED again today for left foot pain. An I and D was done under local anesthesia by the ED physician and large amounts of pus was drained. Review of Systems Constitutional: Constitutional: Denies chills and Denies fever(s) Cardiovascular: Cardiovascular: Denies chest pain, Denies dyspnea and Denies dyspnea on exertion Respiratory: Respiratory: Denies cough, Denies dyspnea and Denies dyspnea on exertion Gastrointestinal: Gastrointestinal: Denies hematochezia and Denies change in bowel habits Genitourinary: Genitourinary: Denies hematuria Musculoskeletal: Musculoskeletal: Denies back pain and Denies limited range of motion Neurologic: Denies focal weakness and Denies convulsions Psychiatric: Psychiatric: Denies depression and Denies mood swings [facility] Past Medical History Medical History Asthma Atherosclerotic cardiovascular disease Atrial tachycardia COPD (chronic obstructive pulmonary disease) COVID-19 vaccine series completed Diabetes Diabetic toe ulcer Essential hypertension GERD (gastroesophageal reflux disease) Hypertension Osteomyelitis Family History Family History Mother Hx of CABG Sister CAD (coronary artery disease) Surgical History Surgical History History of esophagogastroduodenoscopy (EGD) History of toe surgery (09/22/21) Social History Social History Household Members: Spouse and Family Housing: Apartment Do you presently have visiting nurse or other home services: Yes Alcohol intake: never Patient Tobacco Use Status: Current everyday Tobacco user Tobacco use type: Cigarette Cigarettes Per Day: 1 Years Smoked: 43 e-Cigarette/Vaping Use: Never Used Second Hand Smoke Exposure: Yes Advance Directives Date on File: 12/28/20 service: No Current occupational status: unemployed Meds Allergies Allergy/AdvReac Type Severity Reaction Status Date / Time Penicillins [PENICILLINS] Allergy Severe RASH Verified 10/31/21 04:32 amoxicillin [AMOXICILLIN] Allergy Intermediate HIVES Verified 10/31/21 04:32 Active Medications: Current Medications Acetaminophen (Acetaminophen 325 Mg Tablet) 650 mg PO Q6H PRN PRN Reason: Pain, Mild (Pain Scale 1-3) Dextrose (Dextrose 50 % 25 Gm/50 Ml Syringe) 25 gm IVPUSH Q15M PRN; Protocol PRN Reason: per Hypoglycemia Standing Ord. Docusate Sodium (Docusate Sodium 100 Mg Capsule) 100 mg PO DAILY PRN PRN Reason: Constipation Glucose (Glucose Gel 15 Gm Gel..Gram.) 15 gm PO Q15M PRN; Protocol PRN Reason: per Hypoglycemia Standing Ord. Heparin Sodium (Porcine) (Heparin Sodium,Porcine 5,000 Unit/Ml Vial) 5,000 unit SUBCUT Q12H [facility] Piperacillin Sod/Tazobactam (Sod 3.375 gm/ Sodium Chloride) 50 mls @ 100 mls/hr IV Q6H [facility] Insulin Human Lispro (Insulin Lispro 100 Unit/Ml 3 Ml Vial) 0 unit SUBCUT QIDACHS [facility]; Protocol Morphine Sulfate (Morphine Sulfate 4 Mg/Ml Cartridge) 2 mg IVPUSH Q4H PRN; Protocol PRN Reason: Pain, Severe (Pain Scale 7-10) Nicotine (Nicotine 14 Mg Patch.Td24) 14 mg TRANSDERMA DAILY [facility] Ondansetron HCl (Ondansetron Hcl 4 Mg/2 Ml Vial) 4 mg IVPUSH Q8H PRN PRN Reason: Nausea and Vomiting Oxycodone HCl (Oxycodone Hcl Immed Release 5 Mg Tablet) 5 mg PO Q6H PRN PRN Reason: Pain, Severe (Pain Scale 7-10) Pharmacy Consult (Consult Rx Perform Med Rec) 1 each MISCELLANE ONCE PRN PRN Reason: Consult order Pharmacy Consult (Consult Rx Vancomycin Dosing) 1 each MISCELLANE DAILY PRN PRN Reason: Consult order Sodium Chloride (0.9 % Sodium Chloride Flush 3 Ml Syringe) [facility] Medications Medication Instructions Recorded Confirmed Last Taken Type albuterol sulfate 90 mcg/actuation 2 puff PO Q4H PRN wheezing 12/24/20 11/18/21 10/30/21 History aerosol inhaler (ProAir HFA) aspirin 81 mg tablet,delayed 1 tab PO DAILY 12/24/20 11/18/21 10/30/21 History release atorvastatin 10 mg tablet 1 tab PO DAILY 12/24/20 11/18/21 10/30/21 History fluticasone propionate 115 2 puff inhalation BID 12/24/20 11/18/21 10/30/21 History mcg-salmeterol 21 mcg/actuation HFA inhaler (Advair HFA) glipizide 5 mg-metformin 500 mg 2 tab PO BID 12/24/20 11/18/21 10/30/21 History tablet albuterol sulfate 2.5 mg inhalation Q4H PRN 07/11/21 11/18/21 10/30/21 History Respiratory Distress insulin glargine 100 unit/mL (3 10 unit subcut BEDTIME 10/31/21 11/18/21 10/30/21 History mL) subcutaneous pen (Lantus Solostar U-100 Insulin) lisinopril 20 1 tab PO DAILY 10/31/21 11/18/21 10/30/21 History mg-hydrochlorothiazide 12.5 mg tablet umeclidinium 62.5 mcg/actuation 1 puff PO DAILY 10/31/21 11/18/21 10/30/21 History blister powder for inhalation (Incruse Ellipta) Physical Exam Vital Signs: Vital Signs: Last Vital Signs Temp 98.8 F 11/18/21 12:09 Pulse 100 11/18/21 13:53 Resp 16 11/18/21 13:53 BP 155/70 H 11/18/21 13:53 Pulse Ox 98 11/18/21 13:53 O2 Del Method 11/18/21 13:53 O2 Flow Rate 2 11/18/21 13:53 BMI result Body Mass Index 29.4 Const: Other: anxious General: comfortable and no acute distress Orientation/consciousness: patient oriented x3 Neck: Neck: Yes no lymphadenopathy Resp: Auscultation: clear to auscultation bilaterally Cardio: Rhythm: regular rhythm GI: Palpation (GI): Soft to palpation, nontender and no guarding Neuro: General: patient oriented x3 Extrem: Other: left foot with diffuse swelling/ edema, I and D incision medially Results Labs Result diagrams: 11/21/21 08:58 06/12/22 08:58 Labs: Abnormal lab results 11/18/21 11/18/21 Range/Units 12:39 13:06 WBC 11.9 H (4.8-10.8) X10*3/uL Hgb 11.2 L (12.0-16.0) g/dl Hct 36.0 L (37.0-47.0) % MCV 76.3 L (80.0-98.0) fL MCH 23.7 L (27.0-33.0) pg RDW 17.2 H (11.0-16.0) % Neut % (Auto) 85.4 H (45-73) % Lymph % (Auto) 8.8 L (20-40) % Lymph # (Auto) 1.1 L (1.2-4.9) X10*3/uL Abs Immat Gran (auto) 0.05 H (0.00-0.03) X10*3/uL Absolute Neuts (auto) 10.2 H (2.0-8.3) x10*3/uL Random Glucose 318 H (60-115) mg/dL C-Reactive Protein 5.59 H (< or = 0.50) mg/dL Short CBC 11/18/21 Range/Units 12:39 WBC 11.9 H (4.8-10.8) X10*3/uL Hgb 11.2 L (12.0-16.0) g/dl Hct 36.0 L (37.0-47.0) % Plt Count 266 (160-400) X10*3/uL BMP 11/18/21 13:06 Sodium 135 Potassium 3.6 Chloride 98 Carbon Dioxide 29 BUN 10 Creatinine 0.78 Calcium 8.6 D All other labs normal. Assessment and Plan (1) Abscess of left foot: Status: Acute She has had multiple abscesses of the left foot and another I and D was done in the ED by Dr. Coffey. Large amounts of pus was drained. I will check on the MRI results. She has been started already on IV abx. Depending on the clincal course and daignostic wotk[place], she may need another I and D and debridement in the OR. Her blood sugars appears to be poorly controlled. This is likely to be aggravating her recurrent foot infection. Her lactate is normal and her CRP is actually lower than on her last admission. (2) Cellulitis of foot, left: Status: Acute Procedures Date of Service Date of Service: 11/18/21
--- NOTE | 2021-11-18 15:17 | PHA.MEDREC ---
MED REC COMPLETE, NO ISSUES Pharmacy Consult ? Medication Reconciliation Pharmacy has completed the medication reconciliation.
[2021-11-18 15:22] LABS: Erythrocyte Sedimentation Rate 42 MM/HR (0-20)
[2021-11-18] MEDS: Acetaminophen 325 MG TABLET 650 MG PO (15:34)
--- NOTE | 2021-11-18 15:36 | PHA.PROG ---
Admission Date/Time: November 18, 2021 14:29 Indication: bone and joint infection Weight in k.4 kg Adjusted body weight in K.6 Wiseman body weight in K.4 Obesity Dosing Indication % IBW:44% overweight Serum Creatinine - Last 168 Hours 11/18/21 13:06 Creatinine 0.78 Estimated CrCl and GFR - Last 168 Hours 11/18/21 13:06 Estim Creat Clear Calc 83.9 Estimated GFR > 60 Vancomycin Loading Dose: 1750 mg Current Vancomycin Dosing Regimen:750 mg q12 hours Vancomycin Monitoring using AUC goal of 400 - 600 range with trough as surrogate marker:predicted auc 472 Date and Time for next Vancomycin Level to be drawn:11/20/199 Pharmacist Comments on Vancomycin Plan: Vancomycin dosing will take advantage of [employer] as a clinical decision support tool that uses Bayesian modeling to calculate individual patient's pharmacokinetic parameters and forecast the patient's drug concentration time course with the target goal AUC 24 range of 400 - 600 mg/L/hr.
[2021-11-18] MEDS: Heparin Sodium,Porcine 5,000 UNIT/ML VIAL 5000 UNIT SUBCUT (15:37)
[2021-11-18] MEDS: Morphine Sulfate 4 MG/ML CARTRIDGE 2 MG IVPUSH (17:15)
[2021-11-18] MEDS: 0.9 % Sodium Chloride Flush 3 ML SYRINGE IVFLUSH ×2 (17:26→23:51)
[2021-11-18 19:37] LABS: Glucose, Whole Blood 190 mg/dL (60-115)
[2021-11-18] MEDS: Gabapentin 300 MG CAPSULE 600 MG PO (20:12)
[2021-11-18] MEDS: Insulin Glargine,Hum.rec.anlog 100 UNIT/ML 10 ML VIAL 10 UNIT SUBCUT (20:13)
[2021-11-18] MEDS: Insulin Lispro 100 UNIT/ML 3 ML VIAL SUBCUT (20:15)
[2021-11-18] MEDS: vancomycin HCL 750 MG in 0.9 % Sodium Chloride 250 ML 265 MG IV (21:22)
[2021-11-19] VITALS (14 sets, daily range): BP systolic 123–190; BP diastolic 60–85; PULSE 82–108; RESP 12–20; TEMP 36.2–39.2; O2SAT 90–98; BMI 29.4
[2021-11-19] MEDS: vancomycin HCL 750 MG in 0.9 % Sodium Chloride 250 ML 265 MG IV (04:07)
[2021-11-19] MEDS: Piperacillin Sodium/Tazobactam 3.375 GM in 0.9 % Sodium Chloride 50 ML IV ×3 (06:03→20:26)
[2021-11-19] MEDS: Morphine Sulfate 4 MG/ML CARTRIDGE 2 MG IVPUSH (07:34)
[2021-11-19] MEDS: 0.9 % Sodium Chloride Flush 3 ML SYRINGE IVFLUSH (07:39)
[2021-11-19 07:42] LABS: MANUAL DIFF FLAG NO
[2021-11-19 07:44] LABS: Basophils Percent Auto 0.1 % (0-2); Eosinophils Percent Auto 0.5 % (0-4); Hematocrit 31.2 % (37.0-47.0); Hemoglobin 9.6 g/dl (12.0-16.0); Imm Gran Abs Auto 0.02 X10*3/uL (0.00-0.03); Imm Gran Pct Auto 0.3 % (0.0-0.4); Mean Corpuscular HGB Conc 30.8 g/dl (31.0-35.0); Mean Corpuscular Hemoglobin 23.7 pg (27.0-33.0); Mean Platelet Volume 10.1 fL (9.4-12.3); Monocytes Absolute Auto 0.5 X10*3/uL (0.1-1.2); Monocytes Percent Auto 6.2 % (2-11); Neutrophils Absolute Auto 6.2 x10*3/uL (2.0-8.3); Neutrophils Percent Auto 79.9 % (45-73); Platelet Count 213 X10*3/uL (160-400); Red Blood Count 4.05 X10*6/uL (4.20-5.50); Red Cell Distribution Width 17.3 % (11.0-16.0); White Blood Count 7.8 X10*3/uL (4.8-10.8)
[2021-11-19 07:46] LABS: Glucose, Whole Blood 117 mg/dL (60-115)
[2021-11-19 07:52] LABS: Estimated Average Glucose 229 mg/dL; Hemoglobin A1c % 9.6 %
[2021-11-19 07:59] LABS: Anion Gap 13 (12-20); Blood Urea Nitrogen 7 mg/dL (9-16); Calcium 8.3 mg/dL (8.4-10.2); Carbon Dioxide 27 mmol/L (22-29); Chloride 102 mmol/L (96-108); Creatinine Clr Calc Pharmacy 93.5; Estimated Glomerular Filt Rate > 60; Glucose Random 114 mg/dL (60-115); Potassium 3.2 mmol/L (3.3-5.1); Sodium 139 mmol/L (135-145)
[2021-11-19] MEDS: hydroCHLOROthiazide 12.5 MG TABLET PO (08:42)
[2021-11-19] MEDS: lisinopriL 20 MG TABLET PO (08:42)
[2021-11-19] MEDS: amLODIPine Besylate 10 MG TABLET PO (08:42)
[2021-11-19] MEDS: Acetaminophen 325 MG TABLET 650 MG PO ×2 (08:49→23:18)
[2021-11-19 09:26] LABS: Magnesium 1.7 mg/dL (1.6-2.6)
--- NOTE | 2021-11-19 09:39 | HE.PHANOTE ---
Vancomycin Dosing Addendum Trough scheduled for today at 1400. Vancomycin Dose for 11/18/21 @1530 was not given until 2121. continue with current regimen for now
[2021-11-19] MEDS: Potassium Chloride ER 20 MEQ TAB.ER.PRT 40 MEQ PO (10:10)
[2021-11-19 11:21] LABS: Glucose, Whole Blood 112 mg/dL (60-115)
--- NOTE | 2021-11-19 12:23 | P.PNIM_ITS ---
Subjective Subjective Date of Service: 11/19/21 Interval History: seen and examined this morning follow up for foot infection frequently complains of severe pain but sleepy on exam - easily arousable to verbal stimuli and able to provide history denies fevers/chills. no chest pain, palpitations, shortness of breath or cough worried about surgical procedure scheduled for this afternoon Review of Systems Review of Systems: Yes all other systems are reviewed and are negative Constitutional Constitutional: Denies chills and Denies fever(s) Cardiovascular Cardiovascular: Denies chest pain, Denies palpitations and Denies dyspnea Respiratory Respiratory: Denies cough and Denies dyspnea Gastrointestinal Gastrointestinal: Denies abdominal pain, Denies diarrhea, Denies nausea and Denies vomiting Endocrine Endocrine: Denies palpitations Physical Exam Vital Signs: Vital Signs: Last Vital Signs Temp 97.6 F 11/19/21 10:59 Pulse 94 11/19/21 10:59 Resp 18 11/19/21 10:59 BP 159/74 H 11/19/21 10:59 Pulse Ox 96 11/19/21 10:59 O2 Del Method 11/19/21 10:59 O2 Flow Rate 2 11/19/21 10:59 BMI result Body Mass Index 29.4 Const: General: cooperative, comfortable, alert and awake Orie ntation/consciousness: patient oriented x3 Resp: Effort & Inspection: normal respiratory effort and able to speak in complete sentences Auscultation: clear to auscultation bilaterally Cardio: Rate: regular rate Heart sounds: S1 normal heart sound present and S2 normal heart sound present GI: Inspection: No distended Palpation (GI): Soft to palpation and nontender Skin: Other: foot appears similar to yesterday, less swelling on top of foot Neuro: Other: grossly intact, no focal deficits General: patient oriented x3 Extrem: Other: able to move all 4 extremities spontaneously Objective Data Active Medications Acetaminophen (Acetaminophen 325 Mg Tablet) 650 mg PO Q6H PRN PRN Reason: Pain, Mild (Pain Scale 1-3) Last Admin: 11/19/21 08:49 Dose: 650 mg Documented By: MENG Albuterol Sulfate (Albuterol Sulfate (0.083%) 2.5 Mg/3 Ml Vial.Neb) 2.5 mg INHALE Q4H PRN PRN Reason: Respiratory Distress Amlodipine Besylate (Amlodipine Besylate 10 Mg Tablet) 10 mg PO DAILY MÓNICA; Protocol Last Admin: 11/19/21 08:42 Dose: 10 mg Documented By: MENG Atorvastatin Calcium (Atorvastatin Calcium 10 Mg Tablet) 10 mg PO BEDTIME MÓNICA Dextrose (Dextrose 50 % 25 Gm/50 Ml Syringe) 25 gm IVPUSH Q15M PRN; Protocol PRN Reason: per Hypoglycemia Standing Ord. Docusate Sodium (Docusate Sodium 100 Mg Capsule) 100 mg PO DAILY PRN PRN Reason: Constipation Fluticasone/Vilanterol (Fluticasone/Vilanterol 100/25 Blst.W.Dev) 1 puff INHALE RDAILY COUNTS INCLUDE 234 BEDS AT THE [facility] Last Admin: 11/19/21 07:30 Dose: Not Given Documented By: EMILIE Non-Admin Reason: Patient Refused Gabapentin (Gabapentin 300 Mg Capsule) 600 mg PO BEDTIME MÓNICA Last Admin: 11/18/21 20:12 Dose: 600 mg Documented By: TANA Glucose (Glucose Gel 15 Gm Gel..Gram.) 15 gm PO Q15M PRN; Protocol PRN Reason: per Hypoglycemia Standing Ord. Heparin Sodium (Porcine) (Heparin Sodium,Porcine 5,000 Unit/Ml Vial) 5,000 unit SUBCUT Q12H COUNTS INCLUDE 234 BEDS AT THE [facility] Last Admin: 11/19/21 01:31 Dose: Not Given Documented By: NICHOL Non-Admin Reason: surgery in am Hydrochlorothiazide (Hydrochlorothiazide 12.5 Mg Tablet) 12.5 mg PO DAILY MÓNICA; Protocol Last Admin: 11/19/21 08:42 Dose: 12.5 mg Documented By: MENG Piperacillin Sod/Tazobactam (Sod 3.375 gm/ Sodium Chloride) 50 mls @ 100 mls/hr IV Q6H MÓNICA Last Infusion: 11/19/21 06:38 Dose: 0 mls/hr Documented By: NICHOL Vancomycin HCl 750 mg/ Sodium (Chloride) 265 mls @ 265 mls/hr IV Q12H MÓNICA Last Infusion: 11/19/21 05:14 Dose: 0 mls/hr Documented By: NICHOL Insulin Glargine (Insulin Glargine,Hum.Rec.Anlog 100 Unit/Ml 10 Ml Vial) 10 unit SUBCUT BEDTIME MÓNICA Last Admin: 11/18/21 20:13 Dose: 10 unit Documented By: TANA Insulin Human Lispro (Insulin Lispro 100 Unit/Ml 3 Ml Vial) 0 unit SUBCUT QIDACHS COUNTS INCLUDE 234 BEDS AT THE [facility]; Protocol Last Admin: 11/19/21 11:29 Dose: Not Given Documented By: ASHLEY Non-Admin Reason: No Insulin Coverage Lisinopril (Lisinopril 20 Mg Tablet) 20 mg PO DAILY COUNTS INCLUDE 234 BEDS AT THE [facility] Last Admin: 11/19/21 08:42 Dose: 20 mg Documented By: MENG Nicotine (Nicotine 14 Mg Patch.Td24) 14 mg TRANSDERMA DAILY COUNTS INCLUDE 234 BEDS AT THE [facility] Last Admin: 11/19/21 10:11 Dose: Not Given Documented By: MENG Non-Admin Reason: Patient Asleep Ondansetron HCl (Ondansetron Hcl 4 Mg/2 Ml Vial) 4 mg IVPUSH Q8H PRN PRN Reason: Nausea and Vomiting Oxycodone HCl (Oxycodone Hcl Immed Release 5 Mg Tablet) 5 mg PO Q6H PRN PRN Reason: Pain, Severe (Pain Scale 7-10) Pharmacy Consult (Consult Rx Perform Med Rec) 1 each MISCELLANE ONCE PRN PRN Reason: Consult order Pharmacy Consult (Consult Rx Vancomycin Dosing) 1 each MISCELLANE DAILY PRN PRN Reason: Consult order Sodium Chloride (0.9 % Sodium Chloride Flush 3 Ml Syringe) 3 ml IVFLUSH QSHIFT COUNTS INCLUDE 234 BEDS AT THE [facility] Last Admin: 11/19/21 07:39 Dose: 3 ml Documented By: ASHLEY Tiotropium [place] (Tiotropium [place] 18 Mcg Cap.W.Dev) 1 puff INHALE RDAILY COUNTS INCLUDE 234 BEDS AT THE [facility] Labs CBC & Chem 7: 11/19/21 07:07 11/19/21 07:07 Labs: Laboratory Results - last 24 hr 11/18/21 11/18/21 11/18/21 08:00 12:39 12:39 MCV 76.3 L MCH 23.7 L MCHC 31.1 RDW 17.2 H Plt Count 266 MPV 10.6 Immature Gran % (Auto) 0.4 Neut % (Auto) 85.4 H Lymph % (Auto) 8.8 L [place] % (Auto) 4.4 Eos % (Auto) 0.7 Baso % (Auto) 0.3 Lymph # (Auto) 1.1 L [place] # (Auto) 0.5 Eos # (Auto) 0.1 Baso # (Auto) 0.0 Abs Immat Gran (auto) 0.05 H Absolute Neuts (auto) 10.2 H Absolute Nucleated RBC 0.000 Nucleated RBC % (auto) 0.0 ESR Anion Gap Estim Creat Clear Calc Estimated GFR POC Glucose Random Glucose Estimat Average Glucose Hemoglobin A1c % Lactic Acid 1.8 Calcium Magnesium C-Reactive Protein Lipase Saliva Cortisol Cancelled COVID-19 (KATHLEEN) COVID-19 Clin Com 11/18/21 11/18/21 11/18/21 12:39 13:06 13:13 MCV MCH MCHC RDW Plt Count MPV Immature Gran % (Auto) Neut % (Auto) Lymph % (Auto) [place] % (Auto) Eos % (Auto) Baso % (Auto) Lymph # (Auto) [place] # (Auto) Eos # (Auto) Baso # (Auto) Abs Immat Gran (auto) Absolute Neuts (auto) Absolute Nucleated RBC Nucleated RBC % (auto) ESR 42 H Anion Gap 12 Estim Creat Clear Calc 83.9 Estimated GFR > 60 POC Glucose Random Glucose 318 H Estimat Average Glucose Hemoglobin A1c % Lactic Acid Calcium 8.6 D Magnesium C-Reactive Protein 5.59 H Lipase 8 Saliva Cortisol COVID-19 (KATHLEEN) Negative COVID-19 Clin Com See Note 11/18/21 11/19/21 11/19/21 19:32 07:07 07:07 MCV 77.0 L MCH 23.7 L MCHC 30.8 L RDW 17.3 H Plt Count 213 MPV 10.1 Immature Gran % (Auto) 0.3 Neut % (Auto) 79.9 H Lymph % (Auto) 13.0 L [place] % (Auto) 6.2 Eos % (Auto) 0.5 Baso % (Auto) 0.1 Lymph # (Auto) 1.0 L [place] # (Auto) 0.5 Eos # (Auto) 0.0 Baso # (Auto) 0.0 Abs Immat Gran (auto) 0.02 Absolute Neuts (auto) 6.2 Absolute Nucleated RBC 0.000 Nucleated RBC % (auto) 0.0 ESR Anion Gap 13 Estim Creat Clear Calc 93.5 Estimated GFR > 60 POC Glucose 190 H Random Glucose 114 Estimat Average Glucose Hemoglobin A1c % Lactic Acid Calcium 8.3 L Magnesium 1.7 C-Reactive Protein Lipase Saliva Cortisol COVID-19 (KATHLEEN) COVID-19 Clin Com 11/19/21 11/19/21 11/19/21 07:07 07:21 10:57 MCV MCH MCHC RDW Plt Count MPV Immature Gran % (Auto) Neut % (Auto) Lymph % (Auto) [place] % (Auto) Eos % (Auto) Baso % (Auto) Lymph # (Auto) [place] # (Auto) Eos # (Auto) Baso # (Auto) Abs Immat Gran (auto) Absolute Neuts (auto) Absolute Nucleated RBC Nucleated RBC % (auto) ESR Anion Gap Estim Creat Clear Calc Estimated GFR POC Glucose 117 H 112 Random Glucose Estimat Average Glucose 229 Hemoglobin A1c % 9.6 Lactic Acid Calcium Magnesium C-Reactive Protein Lipase Saliva Cortisol COVID-19 (KATHLEEN) COVID-19 Clin Com Microbiology Microbiology Results: Microbiology 11/18/21 13:06 Gram Stain - Final Foot - Left Routine Culture - Preliminary No growth to date. Assessment and Plan (1) Cellulitis of foot, left: Status: Acute (2) Abscess of left foot: Status: Acute (3) Osteomyelitis: Status: Acute Plan This is a 51-year-old female with history of diabetes, asthma/COPD, GERD, hypertension, recently underwent left 2nd toe amputation for osteomyelitis who presents to the emergency department with increasing pain, redness and swelling of her left foot left diabetic foot infection/cellulitis/abscess no evidence of sepsis at this time s/p 6 weeks of IV daptomycine in August; second toe amputation 09/22; d/c with Linezolid 11/01 had I&D on last admission, I&D done in ED 11/18 MRI showing plantar soft tissue ulcer with sinus tract/ abscess extending lo ngitudinally the length of the flexor digitorum brevis muscle and dorsally superficial to the 2nd metatarsal where there is evidence of underlying osteomyelitis -Continue IV vancomycin and zosyn D#2 -seen by General surgery - plan for drainage in OR this afternoon -ID consultation pending -follow wound cultures, blood cultures -pain control, will attempt adequate pain control with oral medication Hypokalemia mild, k 3.2 oral replacement ordered will check magnesium level and replace as needed follow BMP DM hold oral meds (glipizide/metformin) Continue Lantus SSI, POCs HTN will continue home meds, Norvasc, lisinopril, HCTZ monitor blood pressure closely Tobacco dependence Smoking cessation advised -NRT asthma/copd no acute exacerbation at this time Continue home inhalers Hyperlipidemia Continue statin Peripheral neuropathy Continue gabapentin h/o atrial tachycardia not currently on any rate control agent dvt ppx - heparin on hold code status - full code Attending - dr. Hernandez requires ongoing inpatient hospitalization due to foot infection/ abscess requiring IV antibiotics as well as drainage in the OR, adequate pain control Quality Stroke Does the patient have a stroke diagnosis?: No VTE Prior VTE?: No VTE Risk Level:: Medical - moderate - high VTE Device Contraindication: N/A - Device Ordered VTE Drug Contraindication: N/A - Med Ordered
--- NOTE | 2021-11-19 13:35 | PM.EVENT ---
Event Note Date of Service: 11/19/21 Event Note: her MRI shows sinus tract with abscess along flexor digitorum extending to amputation site of 2nd toe explained to her best to repeat I and D of plantar abscess reviewed risks, benefits and alternatives she says she is familiar as she has had this 3 weeks ago will do I and D of plantar abscess in OR
[2021-11-19 14:27] LABS: Glucose, Whole Blood 118 mg/dL (60-115)
--- NOTE | 2021-11-19 14:28 | MHC.CM.PN ---
nurse hospice case manager note patient reports she steped on a nail and sought treament but with her diabetetis the infection wprsened she reported she had vna coming to dress the wound (confirmed that rajendra is her nurse from the [facility] p[facility] is unknown but she is followed [facility] [address] [place] [address] , she rep[dominique curryid vacination x3 has health care proxy copy requested to be brought in to have on file ) she reported she is not followe dby any other physician other than her pcp transpottyation at home family per documentaiton patient has multiple abscess of the left foot and i& d was done inthe er with large amount of pus drained patient is on iv abx currently and scheduled for surgery today discharge plan per surgical intervention and findings and mri report to be determined active with the [facility] for nrusing case manger to continue to follow
[2021-11-19 14:42] LABS: Vancomycin Trough 8.4 mcg/mL (10.0-20.0)
--- NOTE | 2021-11-19 14:43 | PC.NURSE ---
Addendum entered by Aldo Strickland RN 11/19/21 14:50: per Dr. Muhammad 2nd IV not needed. no attempt made for 2nd IV. Original Note: pt Magnesium needing to be hung per Kinjal Cazares RN. [place] text to Dr. Muhammad to confirm he wants magnesium to be hung prior to procedure. order received from Dr. Muhammad to hang magnesium. Second IV started. 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
[2021-11-19] MEDS: Magnesium Sulfate/D5W 1 GM/100 ML PIGGYBACK IV (14:58)
--- NOTE | 2021-11-19 16:44 | W.PM.IDCN ---
History of Present Illness Data of Consult Service Date: 11/19/21 Requesting physician: Stephanie Flores Primary Care Provider: Unknown Physician HPI Reason for consult: left foot infection,chronic since August acute She presents with pain left foot plantar area. She has had second toe infection and amputation. She has six weeks IV Daptomycin most recently September Review of Systems Review of Systems: Yes all other systems are reviewed and are negative [facility] Past Medical History Medical History Asthma Atherosclerotic cardiovascular disease Atrial tachycardia COPD (chronic obstructive pulmonary disease) COVID-19 vaccine series completed Diabetes Diabetic toe ulcer Essential hypertension GERD (gastroesophageal reflux disease) Hypertension Osteomyelitis Family History Family History Mother Hx of CABG Sister CAD (coronary artery disease) Family history: reviewed and not pertinent Surgical History Surgical History History of esophagogastroduodenoscopy (EGD) History of toe surgery (09/22/21) Social History Social History Household Members: Spouse and Family Housing: Apartment Do you presently have visiting nurse or other home services: Yes Alcohol intake: never Patient Tobacco Use Status: Current everyday Tobacco user Tobacco use type: Cigarette Cigarettes Per Day: 1 Years Smoked: 43 e-Cigarette/Vaping Use: Never Used Second Hand Smoke Exposure: Yes Advance Directives Date on File: 12/28/20 service: No Current occupational status: unemployed Meds Allergies Allergy/AdvReac Type Severity Reaction Status Date / Time Penicillins [PENICILLINS] Allergy Severe RASH Verified 10/31/21 04:32 amoxicillin [AMOXICILLIN] Allergy Intermediate HIVES Verified 10/31/21 04:32 Active Medications: Current Medications Acetaminophen (Acetaminophen 325 Mg Tablet) 650 mg PO Q6H PRN PRN Reason: Pain, Mild (Pain Scale 1-3) Last Admin: 11/19/21 08:49 Dose: 650 mg Albuterol Sulfate (Albuterol Sulfate (0.083%) 2.5 Mg/3 Ml Vial.Neb) 2.5 mg INHALE Q4H PRN PRN Reason: Respiratory Distress Amlodipine Besylate (Amlodipine Besylate 10 Mg Tablet) 10 mg PO DAILY [facility]; Protocol Last Admin: 11/19/21 08:42 Dose: 10 mg Atorvastatin Calcium (Atorvastatin Calcium 10 Mg Tablet) 10 mg PO BEDTIME [facility] Dextrose (Dextrose 50 % 25 Gm/50 Ml Syringe) 25 gm IVPUSH Q15M PRN; Protocol PRN Reason: per Hypoglycemia Standing Ord. Docusate Sodium (Docusate Sodium 100 Mg Capsule) 100 mg PO DAILY PRN PRN Reason: Constipation Fentanyl (Fentanyl Citrate/Pf 100 Mcg/2 Ml Vial) 50 mcg IVPUSH Q5M PRN; Protocol PRN Reason: Pain, Severe (Pain Scale 7-10) Fluticasone/Vilanterol (Fluticasone/Vilanterol 100/25 Blst.W.Dev) 1 puff INHALE RDAILY [facility] Last Admin: 11/19/21 07:30 Dose: Not Given Gabapentin (Gabapentin 300 Mg Capsule) 600 mg PO BEDTIME [facility] Last Admin: 11/18/21 20:12 Dose: 600 mg Glucose (Glucose Gel 15 Gm Gel..Gram.) 15 gm PO Q15M PRN; Protocol PRN Reason: per Hypoglycemia Standing Ord. Heparin Sodium (Porcine) (Heparin Sodium,Porcine 5,000 Unit/Ml Vial) 5,000 unit SUBCUT Q12H [facility] Last Admin: 11/19/21 01:31 Dose: Not Given Hydrochlorothiazide (Hydrochlorothiazide 12.5 Mg Tablet) 12.5 mg PO DAILY [facility]; Protocol Last Admin: 11/19/21 08:42 Dose: 12.5 mg Piperacillin Sod/Tazobactam (Sod 3.375 gm/ Sodium Chloride) 50 mls @ 100 mls/hr IV Q6H [facility] Last Infusion: 11/19/21 13:35 Dose: Infused Vancomycin HCl 1,250 mg/ (Sodium Chloride) 250 mls @ 166.667 mls/hr IV Q12H [facility] Insulin Glargine (Insulin Glargine,Hum.Rec.Anlog 100 Unit/Ml 10 Ml Vial) 10 unit SUBCUT BEDTIME [facility] Last Admin: 11/18/21 20:13 Dose: 10 unit Insulin Human Lispro (Insulin Lispro 100 Unit/Ml 3 Ml Vial) 0 unit SUBCUT QIDACHS [facility]; Protocol Last Admin: 11/19/21 11:29 Dose: Not Given Lisinopril (Lisinopril 20 Mg Tablet) 20 mg PO DAILY [facility] Last Admin: 11/19/21 08:42 Dose: 20 mg Nicotine (Nicotine 14 Mg Patch.Td24) 14 mg TRANSDERMA DAILY [facility] Last Admin: 11/19/21 10:11 Dose: Not Given Ondansetron HCl (Ondansetron Hcl 4 Mg/2 Ml Vial) 4 mg IVPUSH Q8H PRN PRN Reason: Nausea and Vomiting Ondansetron HCl (Ondansetron Hcl 4 Mg/2 Ml Vial) 4 mg IVPUSH ONCE PRN PRN Reason: Nausea and Vomiting Oxycodone HCl (Oxycodone Hcl Immed Release 5 Mg Tablet) 5 mg PO Q6H PRN PRN Reason: Pain, Severe (Pain Scale 7-10) Pharmacy Consult (Consult Rx Perform Med Rec) 1 each MISCELLANE ONCE PRN PRN Reason: Consult order Pharmacy Consult (Consult Rx Vancomycin Dosing) 1 each MISCELLANE DAILY PRN PRN Reason: Consult order Sodium Chloride (0.9 % Sodium Chloride Flush 3 Ml Syringe) 3 ml IVFLUSH QSHIFT [facility] Last Admin: 11/19/21 07:39 Dose: 3 ml Tiotropium [employer] (Tiotropium [employer] 18 Mcg Cap.W.Dev) 1 puff INHALE RDAILY [facility] Home Medications Medication Instructions Recorded Confirmed Last Taken Type albuterol sulfate 90 mcg/actuation 2 puff PO Q4H PRN wheezing 12/24/20 11/18/21 10/30/21 History aerosol inhaler (ProAir HFA) aspirin 81 mg tablet,delayed 1 tab PO DAILY 12/24/20 11/18/21 10/30/21 History release atorvastatin 10 mg tablet 1 tab PO DAILY 12/24/20 11/18/21 10/30/21 History fluticasone propionate 115 2 puff inhalation BID 12/24/20 11/18/21 10/30/21 History mcg-salmeterol 21 mcg/actuation HFA inhaler (Advair HFA) gabapentin 300 mg capsule 2 cap PO BEDTIME 12/24/20 11/18/21 10/30/21 History glipizide 5 mg-metformin 500 mg 2 tab PO BID 12/24/20 11/18/21 10/30/21 History tablet albuterol sulfate 2.5 mg inhalation Q4H PRN 07/11/21 11/18/21 10/30/21 History Respiratory Distress insulin glargine 100 unit/mL (3 10 unit subcut BEDTIME 10/31/21 11/18/21 10/30/21 History mL) subcutaneous pen (Lantus Solostar U-100 Insulin) lisinopril 20 1 tab PO DAILY 10/31/21 11/18/21 10/30/21 History mg-hydrochlorothiazide 12.5 mg tablet umeclidinium 62.5 mcg/actuation 1 puff PO DAILY 10/31/21 11/18/21 10/30/21 History blister powder for inhalation (Incruse Ellipta) ibuprofen 600 mg tablet 600 mg PO TID PRN Abdominal 11/18/21 11/18/21 Unknown History Discomfort Physical Exam Vital Signs: Vital Signs: Last Vital Signs Temp 99 F 11/19/21 14:26 Pulse 92 11/19/21 14:26 Resp 16 11/19/21 14:26 BP 153/73 H 11/19/21 14:26 Pulse Ox 98 11/19/21 14:26 O2 Del Method 11/19/21 14:26 O2 Flow Rate 2 11/19/21 14:26 BMI result Body Mass Index 29.4 Const: General: cooperative HEENT: Head: Yes normal to inspection Mouth: Normal oral and palatal mucosa present Resp: Effort & Inspection: normal respiratory effort Cardio: Rate: regular rate Rhythm: regular rhythm GI: Palpation (GI): Soft to palpation and nontender Extrem: Other: redness lateral plantar left foot Results Labs CBC & Chem 7: 11/19/21 07:07 11/19/21 07:07 Labs: Short CBC 11/19/21 Range/Units 07:07 WBC 7.8 (4.8-10.8) X10*3/uL Hgb 9.6 L (12.0-16.0) g/dl Hct 31.2 L (37.0-47.0) % Plt Count 213 (160-400) X10*3/uL BMP 11/19/21 07:07 Sodium 139 Potassium 3.2 L Chloride 102 Carbon Dioxide 27 BUN 7 L Creatinine 0.70 Calcium 8.3 L Microbiology Microbiology Results: Microbiology 11/18/21 13:06 Blood - Venous Blood Culture - Preliminary No growth after 24 hours. 11/18/21 12:39 Blood - Venous Blood Culture - Preliminary No growth after 24 hours. 11/18/21 13:06 Foot - Left Gram Stain - Final 11/18/21 13:06 Foot - Left Routine Culture - Preliminary No growth to date. Assessment and Plan (1) Osteomyelitis: Status: Acute She has chronic nonhealing left foot wound. She has been on antibiotics most of last four months. (2) Abscess of left foot: Status: Acute Plan Check for abscess. Surgery ?TMA Continue IV antibiotics in house and probable po Doxycycline outpatient if declines surgery but this is not curable.
--- NOTE | 2021-11-19 16:54 | HO.ANESPROP2 ---
[facility] Active Problems Active Problems: All Active Problems (Updated 11/18/21 @ 12:44 by Maty Coffey MD) Cellulitis of foot, left (Acute) Abscess of left foot (Acute) Osteomyelitis (Acute) Left foot infection (Acute) Cellulitis (Acute) Heart problem (Acute) Nausea and vomiting (Acute) Oral thrush (Acute) Dehydration (Acute) Abnormal CT of the abdomen (Acute) Acute pain of left foot (Acute) Osteomyelitis (Acute) COPD (chronic obstructive pulmonary disease) (Acute) Asthma (Acute) Past Medical History Medical History Asthma Atherosclerotic cardiovascular disease Atrial tachycardia COPD (chronic obstructive pulmonary disease) COVID-19 vaccine series completed Diabetes Diabetic toe ulcer Essential hypertension GERD (gastroesophageal reflux disease) Hypertension Osteomyelitis Functional capacity: uses cane/walker Patient : No Family History Family History Mother Hx of CABG Sister CAD (coronary artery disease) Family history of problems with anesthesia: No Surgical History Surgical History History of esophagogastroduodenoscopy (EGD) History of toe surgery (09/22/21) History of Problems with Anesthesia: No Social History Social History Household Members: Spouse and Family Housing: Apartment Do you presently have visiting nurse or other home services: Yes Alcohol intake: never Patient Tobacco Use Status: Current everyday Tobacco user Tobacco use type: Cigarette Cigarettes Per Day: 1 Years Smoked: 43 e-Cigarette/Vaping Use: Never Used Second Hand Smoke Exposure: Yes Advance Directives Date on File: 12/28/20 service: No Current occupational status: unemployed Meds Allergies Allergy/AdvReac Type Severity Reaction Status Date / Time Penicillins [PENICILLINS] Allergy Severe RASH Verified 10/31/21 04:32 amoxicillin [AMOXICILLIN] Allergy Intermediate HIVES Verified 10/31/21 04:32 Active Medications: Current Medications Acetaminophen (Acetaminophen 325 Mg Tablet) 650 mg PO Q6H PRN PRN Reason: Pain, Mild (Pain Scale 1-3) Last Admin: 11/19/21 08:49 Dose: 650 mg Albuterol Sulfate (Albuterol Sulfate (0.083%) 2.5 Mg/3 Ml Vial.Neb) 2.5 mg INHALE Q4H PRN PRN Reason: Respiratory Distress Amlodipine Besylate (Amlodipine Besylate 10 Mg Tablet) 10 mg PO DAILY [facility]; Protocol Last Admin: 11/19/21 08:42 Dose: 10 mg Atorvastatin Calcium (Atorvastatin Calcium 10 Mg Tablet) 10 mg PO BEDTIME [facility] Dextrose (Dextrose 50 % 25 Gm/50 Ml Syringe) 25 gm IVPUSH Q15M PRN; Protocol PRN Reason: per Hypoglycemia Standing Ord. Docusate Sodium (Docusate Sodium 100 Mg Capsule) 100 mg PO DAILY PRN PRN Reason: Constipation Fentanyl (Fentanyl Citrate/Pf 100 Mcg/2 Ml Vial) 50 mcg IVPUSH Q5M PRN; Protocol PRN Reason: Pain, Severe (Pain Scale 7-10) Fluticasone/Vilanterol (Fluticasone/Vilanterol 100/25 Blst.W.Dev) 1 puff INHALE RDAILY [facility] Last Admin: 11/19/21 07:30 Dose: Not Given Gabapentin (Gabapentin 300 Mg Capsule) 600 mg PO BEDTIME [facility] Last Admin: 11/18/21 20:12 Dose: 600 mg Glucose (Glucose Gel 15 Gm Gel..Gram.) 15 gm PO Q15M PRN; Protocol PRN Reason: per Hypoglycemia Standing Ord. Heparin Sodium (Porcine) (Heparin Sodium,Porcine 5,000 Unit/Ml Vial) 5,000 unit SUBCUT Q12H [facility] Last Admin: 11/19/21 01:31 Dose: Not Given Hydrochlorothiazide (Hydrochlorothiazide 12.5 Mg Tablet) 12.5 mg PO DAILY [facility]; Protocol Last Admin: 11/19/21 08:42 Dose: 12.5 mg Piperacillin Sod/Tazobactam (Sod 3.375 gm/ Sodium Chloride) 50 mls @ 100 mls/hr IV Q6H [facility] Last Infusion: 11/19/21 13:35 Dose: Infused Vancomycin HCl 1,250 mg/ (Sodium Chloride) 250 mls @ 166.667 mls/hr IV Q12H [facility] Insulin Glargine (Insulin Glargine,Hum.Rec.Anlog 100 Unit/Ml 10 Ml Vial) 10 unit SUBCUT BEDTIME [facility] Last Admin: 11/18/21 20:13 Dose: 10 unit Insulin Human Lispro (Insulin Lispro 100 Unit/Ml 3 Ml Vial) 0 unit SUBCUT QIDACHS [facility]; Protocol Last Admin: 11/19/21 11:29 Dose: Not Given Lisinopril (Lisinopril 20 Mg Tablet) 20 mg PO DAILY [facility] Last Admin: 11/19/21 08:42 Dose: 20 mg Nicotine (Nicotine 14 Mg Patch.Td24) 14 mg TRANSDERMA DAILY [facility] Last Admin: 11/19/21 10:11 Dose: Not Given Ondansetron HCl (Ondansetron Hcl 4 Mg/2 Ml Vial) 4 mg IVPUSH Q8H PRN PRN Reason: Nausea and Vomiting Ondansetron HCl (Ondansetron Hcl 4 Mg/2 Ml Vial) 4 mg IVPUSH ONCE PRN PRN Reason: Nausea and Vomiting Oxycodone HCl (Oxycodone Hcl Immed Release 5 Mg Tablet) 5 mg PO Q6H PRN PRN Reason: Pain, Severe (Pain Scale 7-10) Pharmacy Consult (Consult Rx Perform Med Rec) 1 each MISCELLANE ONCE PRN PRN Reason: Consult order Pharmacy Consult (Consult Rx Vancomycin Dosing) 1 each MISCELLANE DAILY PRN PRN Reason: Consult order Sodium Chloride (0.9 % Sodium Chloride Flush 3 Ml Syringe) 3 ml IVFLUSH QSHIFT [facility] Last Admin: 11/19/21 07:39 Dose: 3 ml Tiotropium [place] (Tiotropium [place] 18 Mcg Cap.W.Dev) 1 puff INHALE RDAILY [facility] Home Medications Medication Instructions Recorded Confirmed Last Taken Type albuterol sulfate 90 mcg/actuation 2 puff PO Q4H PRN wheezing 12/24/20 11/18/21 10/30/21 History aerosol inhaler (ProAir HFA) aspirin 81 mg tablet,delayed 1 tab PO DAILY 12/24/20 11/18/21 10/30/21 History release atorvastatin 10 mg tablet 1 tab PO DAILY 12/24/20 11/18/21 10/30/21 History fluticasone propionate 115 2 puff inhalation BID 12/24/20 11/18/21 10/30/21 History mcg-salmeterol 21 mcg/actuation HFA inhaler (Advair HFA) gabapentin 300 mg capsule 2 cap PO BEDTIME 12/24/20 11/18/21 10/30/21 History glipizide 5 mg-metformin 500 mg 2 tab PO BID 12/24/20 11/18/21 10/30/21 History tablet albuterol sulfate 2.5 mg inhalation Q4H PRN 07/11/21 11/18/21 10/30/21 History Respiratory Distress insulin glargine 100 unit/mL (3 10 unit subcut BEDTIME 10/31/21 11/18/21 10/30/21 History mL) subcutaneous pen (Lantus Solostar U-100 Insulin) lisinopril 20 1 tab PO DAILY 10/31/21 11/18/21 10/30/21 History mg-hydrochlorothiazide 12.5 mg tablet umeclidinium 62.5 mcg/actuation 1 puff PO DAILY 10/31/21 11/18/21 10/30/21 History blister powder for inhalation (Incruse Ellipta) ibuprofen 600 mg tablet 600 mg PO TID PRN Abdominal 11/18/21 11/18/21 Unknown History Discomfort Exam Exam Date and Time: November 19, 2021 1654 Height,Weight and Vital Signs: Height 5 ft 3 in Weight 75.4 kg Last Vital Signs Temp 99 F 11/19/21 14:26 Pulse 92 11/19/21 14:26 Resp 16 11/19/21 14:26 BP 153/73 H 11/19/21 14:26 Pulse Ox 98 11/19/21 14:26 O2 Del Method 11/19/21 14:26 O2 Flow Rate 2 11/19/21 14:26 Pertinent Lab Results Pertinent Lab Results: Laboratory Tests 11/18/21 11/18/21 11/18/21 08:00 12:39 12:39 WBC 11.9 H RBC 4.72 Hgb 11.2 L Hct 36.0 L MCV 76.3 L MCH 23.7 L MCHC 31.1 RDW 17.2 H Plt Count 266 MPV 10.6 Immature Gran % (Auto) 0.4 Neut % (Auto) 85.4 H Lymph % (Auto) 8.8 L [place] % (Auto) 4.4 Eos % (Auto) 0.7 Baso % (Auto) 0.3 Lymph # (Auto) 1.1 L [place] # (Auto) 0.5 Eos # (Auto) 0.1 Baso # (Auto) 0.0 Abs Immat Gran (auto) 0.05 H Absolute Neuts (auto) 10.2 H Absolute Nucleated RBC 0.000 Nucleated RBC % (auto) 0.0 ESR Sodium Potassium Chloride Carbon Dioxide Anion Gap BUN Creatinine Estim Creat Clear Calc Estimated GFR POC Glucose Random Glucose Estimat Average Glucose Hemoglobin A1c % Lactic Acid 1.8 Calcium Magnesium C-Reactive Protein Lipase Saliva Cortisol Cancelled Vancomycin Trough COVID-19 ([facility]ATHLE[facility]) COVID-19 Clin Com 11/18/21 11/18/21 11/18/21 12:39 13:06 13:13 WBC RBC Hgb Hct MCV MCH MCHC RDW Plt Count MPV Immature Gran % (Auto) Neut % (Auto) Lymph % (Auto) [place] % (Auto) Eos % (Auto) Baso % (Auto) Lymph # (Auto) [place] # (Auto) Eos # (Auto) Baso # (Auto) Abs Immat Gran (auto) Absolute Neuts (auto) Absolute Nucleated RBC Nucleated RBC % (auto) ESR 42 H Sodium 135 Potassium 3.6 Chloride 98 Carbon Dioxide 29 Anion Gap 12 BUN 10 Creatinine 0.78 Estim Creat Clear Calc 83.9 Estimated GFR > 60 POC Glucose Random Glucose 318 H Estimat Average Glucose Hemoglobin A1c % Lactic Acid Calcium 8.6 D Magnesium C-Reactive Protein 5.59 H Lipase 8 Saliva Cortisol Vancomycin Trough COVID-19 (KATHLEEN) Negative COVID-19 Clin Com See Note 11/18/21 11/19/21 11/19/21 19:32 07:07 07:07 WBC 7.8 RBC 4.05 L Hgb 9.6 L Hct 31.2 L MCV 77.0 L MCH 23.7 L MCHC 30.8 L RDW 17.3 H Plt Count 213 MPV 10.1 Immature Gran % (Auto) 0.3 Neut % (Auto) 79.9 H Lymph % (Auto) 13.0 L [place] % (Auto) 6.2 Eos % (Auto) 0.5 Baso % (Auto) 0.1 Lymph # (Auto) 1.0 L [place] # (Auto) 0.5 Eos # (Auto) 0.0 Baso # (Auto) 0.0 Abs Immat Gran (auto) 0.02 Absolute Neuts (auto) 6.2 Absolute Nucleated RBC 0.000 Nucleated RBC % (auto) 0.0 ESR Sodium 139 Potassium 3.2 L Chloride 102 Carbon Dioxide 27 Anion Gap 13 BUN 7 L Creatinine 0.70 Estim Creat Clear Calc 93.5 Estimated GFR > 60 POC Glucose 190 H Random Glucose 114 Estimat Average Glucose Hemoglobin A1c % Lactic Acid Calcium 8.3 L Magnesium 1.7 C-Reactive Protein Lipase Saliva Cortisol Vancomycin Trough COVID-19 (KATHLEEN) COVID-19 [place] 11/19/21 11/19/21 11/19/21 07:07 07:21 10:57 WBC RBC Hgb Hct MCV MCH MCHC RDW Plt Count MPV Immature Gran % (Auto) Neut % (Auto) Lymph % (Auto) [place] % (Auto) Eos % (Auto) Baso % (Auto) Lymph # (Auto) [place] # (Auto) Eos # (Auto) Baso # (Auto) Abs Immat Gran (auto) Absolute Neuts (auto) Absolute Nucleated RBC Nucleated RBC % (auto) ESR Sodium Potassium Chloride Carbon Dioxide Anion Gap BUN Creatinine Estim Creat Clear Calc Estimated GFR POC Glucose 117 H 112 Random Glucose Estimat Average Glucose 229 Hemoglobin A1c % 9.6 Lactic Acid Calcium Magnesium C-Reactive Protein Lipase Saliva Cortisol Vancomycin Trough COVID-19 (KATHLEEN) COVID-19 [place] 11/19/21 11/19/21 14:04 14:23 WBC RBC Hgb Hct MCV MCH MCHC RDW Plt Count MPV Immature Gran % (Auto) Neut % (Auto) Lymph % (Auto) [place] % (Auto) Eos % (Auto) Baso % (Auto) Lymph # (Auto) [place] # (Auto) Eos # (Auto) Baso # (Auto) Abs Immat Gran (auto) Absolute Neuts (auto) Absolute Nucleated RBC Nucleated RBC % (auto) ESR Sodium Potassium Chloride Carbon Dioxide Anion Gap BUN Creatinine Estim Creat Clear Calc Estimated GFR POC Glucose 118 H Random Glucose Estimat Average Glucose Hemoglobin A1c % Lactic Acid Calcium Magnesium C-Reactive Protein Lipase Saliva Cortisol Vancomycin Trough 8.4 L COVID-19 (KATHLEEN) COVID-19 [place] Airway Mallampati Class: III TM Dist: >3cm Neck ROM: Full Denture: Upper and Lower Heart: RRR Lungs: CTA Assessment and Plan Final Anesthetic Review Family History of Problems with Anesthesia: No History of Problems with Anesthesia: No ASA Class: III and Emergency Final Preanesthetic Review: No Changes in Pt Med Stat, Meds/Allgs Chart Reviewed and Consent Obtained/Reviewed Patient Risk: Intermediate Procedure Risk: Low Anesthetic Plan Anesthetic Plan: GA Disposition: Standard PACU
--- NOTE | 2021-11-19 16:57 | W.PM.OPN ---
Operative Note Operative Note Date of Service: 11/19/21 Narrative: Preop diagnosis: left plantar abscess, recurrent Postop diagnosis: The same Procedure: Incision and drainage, excisional debridement, left plantar abscess, via a long incision on the plantar aspect longitudinally Surgeon: Hadley Crawford MD The patient is a 51-year-old female was had a recurrent plantar abscess. She had an MRI showing this sinus tract with an abscess flexor digitorum extending a little dorsally and towards the previous amputation site on the 2nd toe. I explained to her the technique of I and D and debridement in the OR. I reviewed the risks, benefits, and alternatives and she had given consent. She was brought to the operating room. She was placed supine under general anesthesia via ring breast airway. The left foot prepped and draped in the usual sterile fashion. Surgical time-out was done. The patient was receiving digital antibiotics before the surgery Examination of the left foot revealed a short I and D site on the plantar aspect with edema of the foot. I made an incision on the plantar aspect along this short incision extended this proximally and distally to make this a very long incision. This was about a 9 cm incision. pus was drained. Sirs were taken I also made an incision on the plantar aspect near the base of the amputation site. There was no purulent collection in this area. This sinus however connected to this paste I notice a lot of fibrinous debris within this deep layer of the plantar aspect so I had to do a sharp excisional debridement with curved Disla scissors I copiously irrigated. I extended the incision a little medially towards the dorsal area to make sure that we had opened up and drained all fluid collections I bluntly dissected as well and probed Once I felt that we had adequately opened up all the involved spaces, I applied 1 in iodoform packings into the cavity Thick dressings were applied and the foot was wrapped in Kerlix roll and Bruno bandage . She tolerated the procedure well. There were no immediate complications. There was minimal blood loss. Initial final counts were correct at the end of the case.
[2021-11-19] MEDS: oxyCODONE HCl Immed Release 5 MG TABLET PO (17:17)
[2021-11-19] MEDS: fentaNYL citrate/PF 100 MCG/2 ML VIAL 25 MCG IVPUSH (17:25)
[2021-11-19] MEDS: vancomycin HCL 1,250 MG in 0.9 % Sodium Chloride 250 ML 166.67 MG IV (18:07)
[2021-11-19 18:15] LABS: Glucose, Whole Blood 138 mg/dL (60-115)
[2021-11-19] MEDS: Morphine Sulfate 2 MG/ML CARTRIDGE IVPUSH (20:27)
[2021-11-19] MEDS: Atorvastatin Calcium 10 MG TABLET PO (20:27)
[2021-11-19] MEDS: Gabapentin 300 MG CAPSULE 600 MG PO (20:27)
[2021-11-19] MEDS: Insulin Lispro 100 UNIT/ML 3 ML VIAL SUBCUT (20:27)
[2021-11-19] MEDS: Insulin Glargine,Hum.rec.anlog 100 UNIT/ML 10 ML VIAL 10 UNIT SUBCUT (20:28)
[2021-11-19 20:30] LABS: Glucose, Whole Blood 289 mg/dL (60-115)
--- NOTE | 2021-11-19 23:24 | PC.NURSE ---
Temperature 102.5 orally medicated with 2 tylenol 2320.
[2021-11-20] VITALS (9 sets, daily range): BP systolic 127–147; BP diastolic 60–81; PULSE 69–98; RESP 17–20; TEMP 36.2–39.7; O2SAT 95–99
[2021-11-20] MEDS: 0.9 % Sodium Chloride Flush 3 ML SYRINGE IVFLUSH ×4 (00:39→20:01)
[2021-11-20] MEDS: Heparin Sodium,Porcine 5,000 UNIT/ML VIAL 5000 UNIT SUBCUT ×2 (02:45→15:14)
[2021-11-20] MEDS: Morphine Sulfate 2 MG/ML CARTRIDGE IVPUSH ×5 (02:45→22:43)
[2021-11-20] MEDS: Piperacillin Sodium/Tazobactam 3.375 GM in 0.9 % Sodium Chloride 50 ML IV ×4 (02:46→18:34)
[2021-11-20] MEDS: vancomycin HCL 1,250 MG in 0.9 % Sodium Chloride 250 ML 166.67 MG IV (05:32)
[2021-11-20 05:36] LABS: Hematocrit 30.9 % (37.0-47.0); Hemoglobin 9.5 g/dl (12.0-16.0); Mean Corpuscular HGB Conc 30.7 g/dl (31.0-35.0); Mean Corpuscular Hemoglobin 23.9 pg (27.0-33.0); Mean Corpuscular Volume 77.8 fL (80.0-98.0); Mean Platelet Volume 10.5 fL (9.4-12.3); Platelet Count 188 X10*3/uL (160-400); Red Blood Count 3.97 X10*6/uL (4.20-5.50); Red Cell Distribution Width 17.2 % (11.0-16.0); White Blood Count 7.7 X10*3/uL (4.8-10.8)
[2021-11-20] MEDS: oxyCODONE HCl Immed Release 5 MG TABLET PO ×3 (05:48→20:52)
[2021-11-20] MEDS: Acetaminophen 325 MG TABLET 650 MG PO ×2 (05:51→12:17)
[2021-11-20 05:53] LABS: Anion Gap 14 (12-20); Blood Urea Nitrogen 9 mg/dL (9-16); Carbon Dioxide 28 mmol/L (22-29); Chloride 96 mmol/L (96-108); Creatinine Clr Calc Pharmacy 71.1; Estimated Glomerular Filt Rate > 60; Glucose Random 282 mg/dL (60-115); Potassium 3.6 mmol/L (3.3-5.1); Sodium 134 mmol/L (135-145)
--- NOTE | 2021-11-20 06:28 | PC.NURSE ---
temperature 103.5 orally medicated with 2 tylenol at 0550.ice packs applied to neck. notified no new orders at this time.
[2021-11-20 07:35] LABS: Glucose, Whole Blood 304 mg/dL (60-115)
[2021-11-20] MEDS: hydroCHLOROthiazide 12.5 MG TABLET PO (08:17)
[2021-11-20] MEDS: Insulin Lispro 100 UNIT/ML 3 ML VIAL SUBCUT ×3 (08:17→20:00)
[2021-11-20] MEDS: amLODIPine Besylate 10 MG TABLET PO (08:17)
[2021-11-20] MEDS: lisinopriL 20 MG TABLET PO (08:17)
[2021-11-20] MEDS: Fluticasone/Vilanterol 100/25 BLST.W.DEV 1 PUFF INHALE (08:30)
--- NOTE | 2021-11-20 08:44 | MHC.CM.PN ---
[facility] UPDATED IN [facility]
--- NOTE | 2021-11-20 09:48 | HO.PM.IMPN ---
Subjective Subjective Date of Service: 11/20/21 Review of Systems Follow up foot abscess no pain at this time sitting up in bed Physical Exam Vital Signs: Vital Signs: Last Vital Signs Temp 98.5 F 11/20/21 08:00 Pulse 92 11/20/21 08:32 Resp 18 11/20/21 08:32 BP 147/62 H 11/20/21 08:00 Pulse Ox 95 11/20/21 08:00 O2 Del Method 11/20/21 08:00 O2 Flow Rate 3 11/20/21 03:16 Oxygen Flow Rate 3 11/19/21 17:14 BMI result Body Mass Index 29.4 Appearing in no acute distress lung sounds are clear to auscultation heart regular rate rhythm, clear S1, S2 positive bowel sounds, abdomen is soft, nontender neuro patient is alert x3, no focal deficits Surgical dressing intact, wound not visualized Objective Data Active Medications Acetaminophen (Acetaminophen 325 Mg Tablet) 650 mg PO Q6H PRN PRN Reason: Pain, Mild (Pain Scale 1-3) Last Admin: 11/20/21 05:51 Dose: 650 mg Documented By: SHAWANDA Albuterol Sulfate (Albuterol Sulfate (0.083%) 2.5 Mg/3 Ml Vial.Neb) 2.5 mg INHALE Q4H PRN PRN Reason: Respiratory Distress Amlodipine Besylate (Amlodipine Besylate 10 Mg Tablet) 10 mg PO DAILY [facility]; Protocol Last Admin: 11/20/21 08:17 Dose: 10 mg Documented By: ADRIÁN Atorvastatin Calcium (Atorvastatin Calcium 10 Mg Tablet) 10 mg PO BEDTIME [facility] Last Admin: 11/19/21 20:27 Dose: 10 mg Documented By: SHAWANDA Dextrose (Dextrose 50 % 25 Gm/50 Ml Syringe) 25 gm IVPUSH Q15M PRN; Protocol PRN Reason: per Hypoglycemia Standing Ord. Docusate Sodium (Docusate Sodium 100 Mg Capsule) 100 mg PO DAILY PRN PRN Reason: Constipation Fentanyl (Fentanyl Citrate/Pf 100 Mcg/2 Ml Vial) 50 mcg IVPUSH Q5M PRN; Protocol PRN Reason: Pain, Severe (Pain Scale 7-10) Fentanyl (Fentanyl Citrate/Pf 100 Mcg/2 Ml Vial) 25 mcg IVPUSH Q5M PRN; Protocol PRN Reason: Pain, Moderate (Pain Scale 4-6 Last Admin: 11/19/21 17:25 Dose: 25 mcg Documented By: MARTIN Fluticasone/Vilanterol (Fluticasone/Vilanterol 100/25 Blst.W.Dev) 1 puff INHALE RDAILY [facility] Last Admin: 11/20/21 08:30 Dose: 1 puff Documented By: HARVEY Gabapentin (Gabapentin 300 Mg Capsule) 600 mg PO BEDTIME [facility] Last Admin: 11/19/21 20:27 Dose: 600 mg Documented By: SHAWANDA Glucose (Glucose Gel 15 Gm Gel..Gram.) 15 gm PO Q15M PRN; Protocol PRN Reason: per Hypoglycemia Standing Ord. Heparin Sodium (Porcine) (Heparin Sodium,Porcine 5,000 Unit/Ml Vial) 5,000 unit SUBCUT Q12H [facility] Last Admin: 11/20/21 02:45 Dose: 5,000 unit Documented By: SHAWANDA Hydrochlorothiazide (Hydrochlorothiazide 12.5 Mg Tablet) 12.5 mg PO DAILY [facility]; Protocol Last Admin: 11/20/21 08:17 Dose: 12.5 mg Documented By: ADRIÁN Piperacillin Sod/Tazobactam (Sod 3.375 gm/ Sodium Chloride) 50 mls @ 100 mls/hr IV Q6H [facility] Last Infusion: 11/20/21 08:56 Dose: 0 mls/hr Documented By: ADRIÁN Vancomycin HCl 1,250 mg/ (Sodium Chloride) 250 mls @ 166.667 mls/hr IV Q12H [facility] Last Infusion: 11/20/21 08:19 Dose: 0 mls/hr Documented By: ADRIÁN Insulin Glargine (Insulin Glargine,Hum.Rec.Anlog 100 Unit/Ml 10 Ml Vial) 10 unit SUBCUT BEDTIME [facility] Last Admin: 11/19/21 20:28 Dose: 10 unit Documented By: SHAWANDA Insulin Human Lispro (Insulin Lispro 100 Unit/Ml 3 Ml Vial) 0 unit SUBCUT QIDACHS [facility]; Protocol Last Admin: 11/20/21 08:17 Dose: 8 unit Documented By: ADRIÁN Lisinopril (Lisinopril 20 Mg Tablet) 20 mg PO DAILY [facility] Last Admin: 11/20/21 08:17 Dose: 20 mg Documented By: ADRIÁN Morphine Sulfate (Morphine Sulfate 2 Mg/Ml Cartridge) 2 mg IVPUSH Q3H PRN; Protocol PRN Reason: Pain, Severe (Pain Scale 7-10) Last Admin: 11/20/21 08:16 Dose: 2 mg Documented By: ADRIÁN Nicotine (Nicotine 14 Mg Patch.Td24) 14 mg TRANSDERMA DAILY [facility] Last Admin: 11/20/21 08:18 Dose: Not Given Documented By: ADRIÁN Non-Admin Reason: Patient Refused Ondansetron HCl (Ondansetron Hcl 4 Mg/2 Ml Vial) 4 mg IVPUSH Q8H PRN PRN Reason: Nausea and Vomiting Ondansetron HCl (Ondansetron Hcl 4 Mg/2 Ml Vial) 4 mg IVPUSH ONCE PRN PRN Reason: Nausea and Vomiting Oxycodone HCl (Oxycodone Hcl Immed Release 5 Mg Tablet) 5 mg PO Q6H PRN PRN Reason: Pain, Severe (Pain Scale 7-10) Last Admin: 11/20/21 05:48 Dose: 5 mg Documented By: SHAWANDA Oxycodone HCl (Oxycodone Hcl Immed Release 5 Mg Tablet) 5 mg PO ONCE PRN PRN Reason: Pain, Severe (Pain Scale 7-10) Pharmacy Consult (Consult Rx Perform Med Rec) 1 each MISCELLANE ONCE PRN PRN Reason: Consult order Pharmacy Consult (Consult Rx Vancomycin Dosing) 1 each MISCELLANE DAILY PRN PRN Reason: Consult order Sodium Chloride (0.9 % Sodium Chloride Flush 3 Ml Syringe) 3 ml IVFLUSH QSHIFT [facility] Last Admin: 11/20/21 08:18 Dose: 3 ml Documented By: ADRIÁN Tiotropium [place] (Tiotropium [place] 18 Mcg Cap.W.Dev) 1 puff INHALE RDAILY [facility] Last Admin: 11/20/21 08:30 Dose: 1 puff Documented By: HARVEY Labs CBC & Chem 7: 11/20/21 05:13 11/20/21 05:13 Labs: Laboratory Results - last 24 hr 11/19/21 11/19/21 11/19/21 10:57 14:04 14:23 MCV MCH MCHC RDW Plt Count MPV Absolute Nucleated RBC Nucleated RBC % (auto) Anion Gap Estim Creat Clear Calc Estimated GFR POC Glucose 112 118 H Random Glucose Calcium Vancomycin Trough 8.4 L 11/19/21 11/19/21 11/20/21 18:09 20:05 05:13 MCV 77.8 L MCH 23.9 L MCHC 30.7 L RDW 17.2 H Plt Count 188 MPV 10.5 Absolute Nucleated RBC 0.000 Nucleated RBC % (auto) 0.0 Anion Gap Estim Creat Clear Calc Estimated GFR POC Glucose 138 H 289 H Random Glucose Calcium Vancomycin Trough 11/20/21 11/20/21 05:13 07:21 MCV MCH MCHC RDW Plt Count MPV Absolute Nucleated RBC Nucleated RBC % (auto) Anion Gap 14 Estim Creat Clear Calc 71.1 Estimated GFR > 60 POC Glucose 304 H Random Glucose 282 H Calcium 8.0 L Vancomycin Trough Microbiology Microbiology Results: Microbiology 11/19/21 Unknown Gram Stain - Final Foot Left Routine Culture - Preliminary No growth to date. 11/18/21 13:06 Gram Stain - Final Foot - Left Routine Culture - Final No growth after 2 days 11/18/21 13:06 Blood Culture - Preliminary Blood - Venous No growth after 24 hours. 11/18/21 12:39 Blood Culture - Preliminary Blood - Venous No growth after 24 hours. Assessment and Plan (1) Cellulitis of foot, left: Status: Acute (2) Abscess of left foot: Status: Acute (3) Osteomyelitis: Status: Acute Plan This is a 51-year-old female with history of diabetes, asthma/COPD, GERD, hypertension, recently underwent left 2nd toe amputation for osteomyelitis who presents to the emergency department with increasing pain, redness and swelling of her left foot left diabetic foot infection/cellulitis/abscess s/p 6 weeks of IV daptomycine in August; second toe amputation 09/22; d/c with Linezolid 11/01 had I&D on last admission, I&D done in ED 11/18 MRI showing plantar soft tissue ulcer with sinus tract/ abscess extending longitudinally the length of the flexor digitorum brevis muscle and dorsally superficial to the 2nd metatarsal where there is evidence of underlying osteomyelitis -Continue IV vancomycin and zosyn -seen by General surgery s/p abscess drainage -ID consultation rec continuing IV abx, probable doxy as o/p -follow wound cultures, blood cultures Fever overnight no further fevers Hypokalemia mild, k 3.2 oral replacement ordered will check magnesium level and replace as needed follow BMP DM Continue Lantus SSI, POCs HTN will continue home meds, Norvasc, lisinopril, HCTZ monitor blood pressure closely Tobacco dependence Smoking cessation advised -NRT asthma/copd no acute exacerbation at this time Continue home inhalers Hyperlipidemia Continue statin Peripheral neuropathy Continue gabapentin h/o atrial tachycardia not currently on any rate control agent dvt ppx - heparin on hold code status - full code Attending -Dr. Umaña requires ongoing inpatient hospitalization due to foot infection/ abscess requiring IV antibiotics, pain control with oral and IV medications Quality Stroke Does the patient have a stroke diagnosis?: No VTE Prior VTE?: No VTE Risk Level:: Medical - moderate - high VTE Device Contraindication: N/A - Device Ordered VTE Drug Contraindication: N/A - Med Ordered
--- NOTE | 2021-11-20 10:00 | P.PNGS_ITS ---
Subjective Subjective Date of Service: 11/20/21 Interval history: ?I feel fine, I want to go home? Physical Exam Vital Signs: Vital Signs: Last Vital Signs Temp 98.5 F 11/20/21 08:00 Pulse 92 11/20/21 08:32 Resp 18 11/20/21 08:32 BP 147/62 H 11/20/21 08:00 Pulse Ox 95 11/20/21 08:00 O2 Del Method 11/20/21 08:00 O2 Flow Rate 3 11/20/21 03:16 Oxygen Flow Rate 3 11/19/21 17:14 BMI result Body Mass Index 29.4 Const: General: comfortable Nutritional Appearance: well nourished Orientation/consciousness: patient oriented x3 Limitations: no limitations Resp: Effort & Inspection: normal respiratory effort Skin: General skin exam: no rashes or lesions noted Neuro: General: patient oriented x3 Extrem: Other: Dressings to left foot are clean and intact without bleeding or discharge. No erythema noted Objective Data Active Medications Acetaminophen (Acetaminophen 325 Mg Tablet) 650 mg PO Q6H PRN PRN Reason: Pain, Mild (Pain Scale 1-3) Last Admin: 11/20/21 05:51 Dose: 650 mg Documented By: SHAWANDA Albuterol Sulfate (Albuterol Sulfate (0.083%) 2.5 Mg/3 Ml Vial.Neb) 2.5 mg INHALE Q4H PRN PRN Reason: Respiratory Distress Amlodipine Besylate (Amlodipine Besylate 10 Mg Tablet) 10 mg PO DAILY REPLACED BY [facility]; Protocol Last Admin: 11/20/21 08:17 Dose: 10 mg Documented By: ADRIÁN Atorvastatin Calcium (Atorvastatin Calcium 10 Mg Tablet) 10 mg PO BEDTIME REPLACED BY [facility] Last Admin: 11/19/21 20:27 Dose: 10 mg Documented By: SHAWANDA Dextrose (Dextrose 50 % 25 Gm/50 Ml Syringe) 25 gm IVPUSH Q15M PRN; Protocol PRN Reason: per Hypoglycemia Standing Ord. Docusate Sodium (Docusate Sodium 100 Mg Capsule) 100 mg PO DAILY PRN PRN Reason: Constipation Fentanyl (Fentanyl Citrate/Pf 100 Mcg/2 Ml Vial) 50 mcg IVPUSH Q5M PRN; Protocol PRN Reason: Pain, Severe (Pain Scale 7-10) Fentanyl (Fentanyl Citrate/Pf 100 Mcg/2 Ml Vial) 25 mcg IVPUSH Q5M PRN; Protocol PRN Reason: Pain, Moderate (Pain Scale 4-6 Last Admin: 11/19/21 17:25 Dose: 25 mcg Documented By: MARTIN Fluticasone/Vilanterol (Fluticasone/Vilanterol 100/25 Blst.W.Dev) 1 puff INHALE RDAILY [facility]PLACED [facility] Last Admin: 11/20/21 08:30 Dose: 1 puff Documented By: HARVEY Gabapentin (Gabapentin 300 Mg Capsule) 600 mg PO BEDTIME REPLACED BY [facility] Last Admin: 11/19/21 20:27 Dose: 600 mg Documented By: SHAWANDA Glucose (Glucose Gel 15 Gm Gel..Gram.) 15 gm PO Q15M PRN; Protocol PRN Reason: per Hypoglycemia Standing Ord. Heparin Sodium (Porcine) (Heparin Sodium,Porcine 5,000 Unit/Ml Vial) 5,000 unit SUBCUT Q12H [facility]PLACED BY [facility] Last Admin: 11/20/21 02:45 Dose: 5,000 unit Documented By: SHAWANDA Hydrochlorothiazide (Hydrochlorothiazide 12.5 Mg Tablet) 12.5 mg PO DAILY [facility]; Protocol Last Admin: 11/20/21 08:17 Dose: 12.5 mg Documented By: ADRIÁN Piperacillin Sod/Tazobactam (Sod 3.375 gm/ Sodium Chloride) 50 mls @ 100 mls/hr IV Q6H REPLACED BY [facility] Last Infusion: 11/20/21 08:56 Dose: 0 mls/hr Documented By: ADRIÁN Vancomycin HCl 1,250 mg/ (Sodium Chloride) 250 mls @ 166.667 mls/hr IV Q12H REPLACED BY [facility] Last Infusion: 11/20/21 08:19 Dose: 0 mls/hr Documented By: ADRIÁN Insulin Glargine (Insulin Glargine,Hum.Rec.Anlog 100 Unit/Ml 10 Ml Vial) 10 unit SUBCUT BEDTIME REPLACED BY [facility] Last Admin: 11/19/21 20:28 Dose: 10 unit Documented By: SHAWANDA Insulin Human Lispro (Insulin Lispro 100 Unit/Ml 3 Ml Vial) 0 unit SUBCUT QIDACHS REPLACED BY [facility]; Protocol Last Admin: 11/20/21 08:17 Dose: 8 unit Documented By: ADRIÁN Lisinopril (Lisinopril 20 Mg Tablet) 20 mg PO DAILY [facility] Last Admin: 11/20/21 08:17 Dose: 20 mg Documented By: ADRIÁN Morphine Sulfate (Morphine Sulfate 2 Mg/Ml Cartridge) 2 mg IVPUSH Q3H PRN; Protocol PRN Reason: Pain, Severe (Pain Scale 7-10) Last Admin: 11/20/21 08:16 Dose: 2 mg Documented By: ADRIÁN Nicotine (Nicotine 14 Mg Patch.Td24) 14 mg TRANSDERMA DAILY [facility]PL[facility]ED BY [facility] Last Admin: 11/20/21 08:18 Dose: Not Given Documented By: ADRIÁN Non-Admin Reason: Patient Refused Ondansetron HCl (Ondansetron Hcl 4 Mg/2 Ml Vial) 4 mg IVPUSH Q8H PRN PRN Reason: Nausea and Vomiting Ondansetron HCl (Ondansetron Hcl 4 Mg/2 Ml Vial) 4 mg IVPUSH ONCE PRN PRN Reason: Nausea and Vomiting Oxycodone HCl (Oxycodone Hcl Immed Release 5 Mg Tablet) 5 mg PO Q6H PRN PRN Reason: Pain, Severe (Pain Scale 7-10) Last Admin: 11/20/21 05:48 Dose: 5 mg Documented By: SHAWANDA Oxycodone HCl (Oxycodone Hcl Immed Release 5 Mg Tablet) 5 mg PO ONCE PRN PRN Reason: Pain, Severe (Pain Scale 7-10) Pharmacy Consult (Consult Rx Perform Med Rec) 1 each MISCELLANE ONCE PRN PRN Reason: Consult order Pharmacy Consult (Consult Rx Vancomycin Dosing) 1 each MISCELLANE DAILY PRN PRN Reason: Consult order Sodium Chloride (0.9 % Sodium Chloride Flush 3 Ml Syringe) 3 ml IVFLUSH QSHIFT REPLACED BY [facility] Last Admin: 11/20/21 08:18 Dose: 3 ml Documented By: ADRIÁN Tiotropium [place] (Tiotropium [place] 18 Mcg Cap.W.Dev) 1 puff INHALE RDAILY REPLACED BY [facility] Last Admin: 11/20/21 08:30 Dose: 1 puff Documented By: HARVEY Labs CBC & Chem 7: 11/20/21 05:13 11/20/21 05:13 Labs: Laboratory Results - last 24 hr 11/19/21 11/19/21 11/19/21 10:57 14:04 14:23 MCV MCH MCHC RDW Plt Count MPV Absolute Nucleated RBC Nucleated RBC % (auto) Anion Gap Estim Creat Clear Calc Estimated GFR POC Glucose 112 118 H Random Glucose Calcium Vancomycin Trough 8.4 L 11/19/21 11/19/21 11/20/21 18:09 20:05 05:13 MCV 77.8 L MCH 23.9 L MCHC 30.7 L RDW 17.2 H Plt Count 188 MPV 10.5 Absolute Nucleated RBC 0.000 Nucleated RBC % (auto) 0.0 Anion Gap Estim Creat Clear Calc Estimated GFR POC Glucose 138 H 289 H Random Glucose Calcium Vancomycin Trough 11/20/21 11/20/21 05:13 07:21 MCV MCH MCHC RDW Plt Count MPV Absolute Nucleated RBC Nucleated RBC % (auto) Anion Gap 14 Estim Creat Clear Calc 71.1 Estimated GFR > 60 POC Glucose 304 H Random Glucose 282 H Calcium 8.0 L Vancomycin Trough Microbiology Microbiology Results: Microbiology 11/19/21 Unknown Gram Stain - Final Foot Left Routine Culture - Preliminary No growth to date. 11/18/21 13:06 Gram Stain - Final Foot - Left Routine Culture - Final No growth after 2 days 11/18/21 13:06 Blood Culture - Preliminary Blood - Venous No growth after 24 hours. 11/18/21 12:39 Blood Culture - Preliminary Blood - Venous No growth after 24 hours. Procedures Date of Service Date of Service: 11/20/21 Progress Note: A&P Assessment and plan (1) Abscess of left foot: Status: Acute (2) Cellulitis of foot, left: Status: Acute Plan 51-year-old female patient with left foot abscess, s/p incision and drainage yesterday. Patient will need a dressing change tomorrow. Continue IV antibiotics. Time Spent With Patient Time: Total time spent is greater than 50% in coordination of care (as documented) at patient's floor/unit and/or counseling patient: Quality Stroke Does the patient have a stroke diagnosis?: No VTE Prior VTE?: No VTE Risk Level:: Medical - moderate - high VTE Device Contraindication: N/A - Device Ordered VTE Drug Contraindication: N/A - Med Ordered
[2021-11-20 11:41] LABS: Glucose, Whole Blood 176 mg/dL (60-115)
[2021-11-20 14:43] LABS: Vancomycin Trough 21.8 mcg/mL (10.0-20.0)
--- NOTE | 2021-11-20 15:05 | HE.PHANOTE ---
Vancomycin Addendum 11/19/21 - Trough was 8.4, previous dose were not given at schedule time so patient was receiving doses too close together (less than 12 hours apart). [facility] predict that patient should receive 1500 mg Q12H with an AUC of 549 and a trough 10.1 however that is more than doubling the dose. Will trial 1250 mg Q12H then get a level after 2 dose. Predicted AUC 457 with a trough of 8. 11/20/21 - Random today level 21.8. Will decrease dose after holding dose for at least 6 hour - 12 hours. Will get another random level at 2100 to determine patient clearance of vancomycin and if next dose to start at 2300 or 0400. Since patient has a bone and joint infection, we do not want her to get below therapeutic levels. Kandice Bruno, ShantanuD
[2021-11-20 15:27] LABS: Glucose, Whole Blood 137 mg/dL (60-115)
[2021-11-20 19:57] LABS: Glucose, Whole Blood 190 mg/dL (60-115)
[2021-11-20] MEDS: Insulin Glargine,Hum.rec.anlog 100 UNIT/ML 10 ML VIAL 10 UNIT SUBCUT (20:00)
[2021-11-20] MEDS: Atorvastatin Calcium 10 MG TABLET PO (20:00)
[2021-11-20] MEDS: Gabapentin 300 MG CAPSULE 600 MG PO (20:00)
[2021-11-20 21:50] LABS: Vancomycin Random 16.2 mcg/mL (15-20)
--- NOTE | 2021-11-20 22:09 | HE.PHANOTE ---
Addendum entered by Arti Vides [facility] 11/21/21 10:25: Random level 19.3 this morning, however pt's crcl has dropped from 93 ml/min to 41 ml/min over 2 days with Scr spike overnight. Vancomycin dosing adjusted to q24h from Q12H dosing. Will check level after next dose. Original Note: Vancomycin Addendum Patient random vancomycin level decrease from 21.8 to 16.2 in 7 hours. Will decrease to vancomycin 750 mg Q12H starting 11/20/21 @ 2300 (this is about 2 hours after random level was drawn and 18 hours after last dose). We will get another random vancomycin level prior to next dose 11/21/21 @ 0900 to assess for safety. Pharmacy will assess renal function tomorrow morning as well. Kandice Bruno, ShantanuD
[2021-11-20] MEDS: vancomycin HCL 750 MG in 0.9 % Sodium Chloride 250 ML 265 MG IV (22:44)
[2021-11-21] MEDS: Piperacillin Sodium/Tazobactam 3.375 GM in 0.9 % Sodium Chloride 50 ML IV ×2 (00:31→06:15)
[2021-11-21] MEDS: Heparin Sodium,Porcine 5,000 UNIT/ML VIAL 5000 UNIT SUBCUT (01:53)
[2021-11-21] MEDS: Morphine Sulfate 2 MG/ML CARTRIDGE IVPUSH ×2 (01:58→07:29)
[2021-11-21 04:00] VITALS: BP 136/65; PULSE 79; RESP 18; TEMP 36.2; O2SAT 98
[2021-11-21 07:08] VITALS: BP 164/73; PULSE 82; RESP 18; TEMP 36.6; O2SAT 91
[2021-11-21] MEDS: amLODIPine Besylate 10 MG TABLET PO (07:29)
[2021-11-21] MEDS: hydroCHLOROthiazide 12.5 MG TABLET PO (07:29)
[2021-11-21] MEDS: lisinopriL 20 MG TABLET PO (07:29)
[2021-11-21] MEDS: 0.9 % Sodium Chloride Flush 3 ML SYRINGE IVFLUSH (07:30)
[2021-11-21 07:31] LABS: Glucose, Whole Blood 139 mg/dL (60-115)
--- NOTE | 2021-11-21 07:59 | P.PNGS_ITS ---
Subjective Subjective Date of Service: 11/21/21 Interval history: Patient reports that she feels fine with no foot pain, would like to go home today. Reports that she wants to quit smoking. Physical Exam Vital Signs: Vital Signs: Last Vital Signs Temp 97.8 F 11/21/21 07:08 Pulse 82 11/21/21 07:08 Resp 18 11/21/21 07:08 BP 164/73 H 11/21/21 07:08 Pulse Ox 91 L 11/21/21 07:08 O2 Del Method 11/21/21 07:08 O2 Flow Rate 3 11/21/21 04:00 Oxygen Flow Rate 3 11/19/21 17:14 BMI result Body Mass Index 29.4 Const: General: poor hygiene Nutritional Appearance: well nourished Orientation/consciousness: patient oriented x3 Resp: Effort & Inspection: normal respiratory effort Neuro: General: patient oriented x3 Extrem: Other: Dressings to left foot changed. Packing removed. No erythema and no purulent drainage noted. Sterile dressings applied including fluff gauze, ABD, Kerlix, and Bruno bandage. Objective Data Active Medications Acetaminophen (Acetaminophen 325 Mg Tablet) 650 mg PO Q6H PRN PRN Reason: Pain, Mild (Pain Scale 1-3) Last Admin: 11/20/21 12:17 Dose: 650 mg Documented By: ADRIÁN Albuterol Sulfate (Albuterol Sulfate (0.083%) 2.5 Mg/3 Ml Vial.Neb) 2.5 mg INHALE Q4H PRN PRN Reason: Respiratory Distress Amlodipine Besylate (Amlodipine Besylate 10 Mg Tablet) 10 mg PO DAILY MÓNICA; Pro tocol Last Admin: 11/21/21 07:29 Dose: 10 mg Documented By: ADRIÁN Atorvastatin Calcium (Atorvastatin Calcium 10 Mg Tablet) 10 mg PO BEDTIME MÓNICA Last Admin: 11/20/21 20:00 Dose: 10 mg Documented By: SHAWANDA Dextrose (Dextrose 50 % 25 Gm/50 Ml Syringe) 25 gm IVPUSH Q15M PRN; Protocol PRN Reason: per Hypoglycemia Standing Ord. Docusate Sodium (Docusate Sodium 100 Mg Capsule) 100 mg PO DAILY PRN PRN Reason: Constipation Fentanyl (Fentanyl Citrate/Pf 100 Mcg/2 Ml Vial) 50 mcg IVPUSH Q5M PRN; Protocol PRN Reason: Pain, Severe (Pain Scale 7-10) Fentanyl (Fentanyl Citrate/Pf 100 Mcg/2 Ml Vial) 25 mcg IVPUSH Q5M PRN; Protocol PRN Reason: Pain, Moderate (Pain Scale 4-6 Last Admin: 11/19/21 17:25 Dose: 25 mcg Documented By: MARTIN Fluticasone/Vilanterol (Fluticasone/Vilanterol 100/25 Blst.W.Dev) 1 puff INHALE RDAILY COUNT INCLUDES THE [facility] Last Admin: 11/20/21 08:30 Dose: 1 puff Documented By: HARVEY Gabapentin (Gabapentin 300 Mg Capsule) 600 mg PO BEDTIME COUNT INCLUDES THE [facility] Last Admin: 11/20/21 20:00 Dose: 600 mg Documented By: SHAWANDA Glucose (Glucose Gel 15 Gm Gel..Gram.) 15 gm PO Q15M PRN; Protocol PRN Reason: per Hypoglycemia Standing Ord. Heparin Sodium (Porcine) (Heparin Sodium,Porcine 5,000 Unit/Ml Vial) 5,000 unit SUBCUT Q12H COUNT INCLUDES THE [facility] Last Admin: 11/21/21 01:53 Dose: 5,000 unit Documented By: SHAWANDA Hydrochlorothiazide (Hydrochlorothiazide 12.5 Mg Tablet) 12.5 mg PO DAILY COUNT INCLUDES THE [facility]; Protocol Last Admin: 11/21/21 07:29 Dose: 12.5 mg Documented By: ADRIÁN Piperacillin Sod/Tazobactam (Sod 3.375 gm/ Sodium Chloride) 50 mls @ 100 mls/hr IV Q6H COUNT INCLUDES THE [facility] Last Infusion: 11/21/21 06:51 Dose: 0 mls/hr Documented By: ADRIÁN Vancomycin HCl 750 mg/ Sodium (Chloride) 265 mls @ 265 mls/hr IV Q12H COUNT INCLUDES THE [facility] Last Infusion: 11/20/21 23:46 Dose: 0 mls/hr Documented By: SHAWANDA Insulin Glargine (Insulin Glargine,Hum.Rec.Anlog 100 Unit/Ml 10 Ml Vial) 10 unit SUBCUT BEDTIME COUNT INCLUDES THE [facility] Last Admin: 11/20/21 20:00 Dose: 10 unit Documented By: SHAWANDA Insulin Human Lispro (Insulin Lispro 100 Unit/Ml 3 Ml Vial) 0 unit SUBCUT QIDACHS COUNT INCLUDES THE [facility]; Protocol Last Admin: 11/21/21 07:36 Dose: Not Given Documented By: ADRIÁN Non-Admin Reason: No Insulin Coverage Lisinopril (Lisinopril 20 Mg Tablet) 20 mg PO DAILY COUNT INCLUDES THE [facility] Last Admin: 11/21/21 07:29 Dose: 20 mg Documented By: ADRIÁN Morphine Sulfate (Morphine Sulfate 2 Mg/Ml Cartridge) 2 mg IVPUSH Q3H PRN; Protocol PRN Reason: Pain, Severe (Pain Scale 7-10) Last Admin: 11/21/21 07:29 Dose: 2 mg Documented By: ADRIÁN Nicotine (Nicotine 14 Mg Patch.Td24) 14 mg TRANSDERMA DAILY COUNT INCLUDES THE [facility] Last Admin: 11/21/21 07:30 Dose: Not Given Documented By: ADRIÁN Non-Admin Reason: Patient Refused Ondansetron HCl (Ondansetron Hcl 4 Mg/2 Ml Vial) 4 mg IVPUSH Q8H PRN PRN Reason: Nausea and Vomiting Ondansetron HCl (Ondansetron Hcl 4 Mg/2 Ml Vial) 4 mg IVPUSH ONCE PRN PRN Reason: Nausea and Vomiting Oxycodone HCl (Oxycodone Hcl Immed Release 5 Mg Tablet) 5 mg PO Q6H PRN PRN Reason: Pain, Severe (Pain Scale 7-10) Last Admin: 11/20/21 20:52 Dose: 5 mg Documented By: SHAWANDA Oxycodone HCl (Oxycodone Hcl Immed Release 5 Mg Tablet) 5 mg PO ONCE PRN PRN Reason: Pain, Severe (Pain Scale 7-10) Pharmacy Consult (Consult Rx Perform Med Rec) 1 each MISCELLANE ONCE PRN PRN Reason: Consult order Pharmacy Consult (Consult Rx Vancomycin Dosing) 1 each MISCELLANE DAILY PRN PRN Reason: Consult order Sodium Chloride (0.9 % Sodium Chloride Flush 3 Ml Syringe) 3 ml IVFLUSH QSHIFT COUNT INCLUDES THE [facility] Last Admin: 11/21/21 07:30 Dose: 3 ml Documented By: ADRIÁN Tiotropium [place] (Tiotropium [place] 18 Mcg Cap.W.Dev) 1 puff INHALE RDAILY COUNT INCLUDES THE [facility] Last Admin: 11/20/21 08:30 Dose: 1 puff Documented By: HARVEY Labs CBC & Chem 7: 11/20/21 05:13 11/20/21 05:13 Labs: Laboratory Results - last 24 hr 11/20/21 11/20/21 11/20/21 11:20 14:16 15:19 POC Glucose 176 H 137 H Vancomycin Trough 21.8 H Random Vancomycin 11/20/21 11/20/21 11/21/21 19:04 21:07 07:12 POC Glucose 190 H 139 H Vancomycin Trough Random Vancomycin 16.2 Microbiology Microbiology Results: Microbiology 11/18/21 12:39 Blood Culture - Preliminary Blood - Venous Prelim: GNR Gram Stain only 11/18/21 13:06 Blood Culture - Preliminary Blood - Venous No growth after 48 hours. 11/19/21 Unknown Gram Stain - Final Foot Left Routine Culture - Preliminary No growth to date. 11/18/21 13:06 Gram Stain - Final Foot - Left Routine Culture - Final No growth after 2 days Procedures Date of Service Date of Service: 11/21/21 Progress Note: A&P Assessment and plan (1) Abscess of left foot: Status: Acute Plan Pod 2 following incision and drainage of left foot abscess. Overall her wounds are clean with no surrounding erythema. Packing was removed. The patient should have dressing change at least every other day either through [facility] or care center. Dressing changes include 4 x 4 gauze followed by ABD pad followed by Kerlix and Bruno bandage. She should follow up with Dr. Crawford in 1 week if discharged. Time Spent With Patient Time: Total time spent is greater than 50% in coordination of care (as documented) at patient's floor/unit and/or counseling patient: Quality Stroke Does the patient have a stroke diagnosis?: No VTE Prior VTE?: No VTE Risk Level:: Medical - moderate - high VTE Device Contraindication: N/A - Device Ordered VTE Drug Contraindication: N/A - Med Ordered
[2021-11-21] MEDS: Fluticasone/Vilanterol 100/25 BLST.W.DEV 1 PUFF INHALE (08:02)
[2021-11-21 08:07] VITALS: PULSE 91; RESP 20; O2SAT 94
[2021-11-21 09:04] LABS: Hematocrit 30.1 % (37.0-47.0); Hemoglobin 9.1 g/dl (12.0-16.0); Mean Corpuscular HGB Conc 30.2 g/dl (31.0-35.0); Mean Corpuscular Hemoglobin 23.7 pg (27.0-33.0); Mean Corpuscular Volume 78.4 fL (80.0-98.0); Mean Platelet Volume 10.6 fL (9.4-12.3); Platelet Count 181 X10*3/uL (160-400); Red Blood Count 3.84 X10*6/uL (4.20-5.50); Red Cell Distribution Width 17.1 % (11.0-16.0); White Blood Count 6.1 X10*3/uL (4.8-10.8)
[2021-11-21] MEDS: Acetaminophen 325 MG TABLET 650 MG PO (09:12)
[2021-11-21] MEDS: oxyCODONE HCl Immed Release 5 MG TABLET PO (09:13)
[2021-11-21 09:21] LABS: Anion Gap 15 (12-20); Blood Urea Nitrogen 12 mg/dL (9-16); Calcium 8.3 mg/dL (8.4-10.2); Carbon Dioxide 24 mmol/L (22-29); Chloride 102 mmol/L (96-108); Creatinine Clr Calc Pharmacy 41.7; Estimated Glomerular Filt Rate 35; Glucose Random 166 mg/dL (60-115); Potassium 3.9 mmol/L (3.3-5.1); Sodium 137 mmol/L (135-145)
[2021-11-21 09:24] LABS: Vancomycin Random 19.3 mcg/mL (15-20)
--- NOTE | 2021-11-21 10:10 | P.DS_ITS ---
DS: Providers Provider Date of Service: 11/21/21 Date of admission: 11/18/21 14:29 Primary care physician: Unknown Physician Consults: 11/18/21 14:27 Consult to General Surgery Routine Consulting Provider: Hadley Crawford Reason for consultation: left diabetic foot infection Has provider been notified: No Consult to Infectious Diseases Routine Consulting Provider: Angie Padilla Reason for consultation: left foot infection Has provider been notified: No Attending physician on discharge: [facility] Discharging clinician: Elizabeth Gracia DS: Diagnosis Discharge Diagnosis (1) Abscess of left foot: Status: Acute DS: Summary Hospital Course Hospital Course: HP as per admitting provider This is a 51-year-old female with history of diabetes presents to the emergency department with left foot pain.? Patient was admitted to the hospital in August with diabetic foot infection/ osteomyelitis of the 2nd proximal phalanx and 2nd metatarsal head as well as an abscess.? She was discharged with 6 weeks of IV daptomycin.? She had left 2nd toe amputation in September. She returned to the hospital at the end of October with recurrent Infection/ abscess and underwent I&D and was discharged with Linezolid for 28 days.? she reports that she has been following [facility] but she did miss her appointment yesterday. She returns to the hospital today with increasing pain. ? She denies any associated fever or chills. ? she received a dose of IV Dilaudid for pain control. She had I&D in the ED and was started on broad-spectrum antibiotics and the decision was made to admit her for further management. Vaccination status: Pfizer x3 . LEFT AMA Left diabetic foot infection/cellulitis/abscess s/p 6 weeks of IV daptomycine in August; second toe amputation 09/22; d/c with Linezolid 11/01 had I&D on last admission, I&D done in ED 11/18 MRI showing?plantar soft tissue ulcer with sinus tract/ abscess extending longi tudinally the length of the flexor digitorum brevis muscle and dorsally superficial to the 2nd metatarsal where there is evidence of underlying osteomyelitis Treated with IV vancomycin and zosyn seen by General surgery s/p abscess drainage ID consultation rec continuing IV abx, probable doxy as o/p? blood cx back today 11/21 with 1/2 GNR unfortunately patient does not want wait for final results and requested to leave against medical advice. Dr. Cammy jorgensen, infectious disease aware and agreed with 10 days of doxycycline and Levaquin. She needs to follow-up with Dr. Welsh in regards to her blood cultures. IRAIS. Developed today. Again, patient wants to leave against medical advice therefore this cannot be addressed. She should check her BMP on Monday, she will be sent home with a lab requisition Fever overnight 11/20 no further fevers noted Hypokalemia. Resolved DM continue home medications HTN will continue home meds, Norvasc, lisinopril, HCTZ Tobacco dependence Smoking cessation advised -NRT asthma/copd no acute exacerbation at this time Continue home inhalers Hyperlipidemia Continue statin Peripheral neuropathy Continue gabapentin h/o atrial tachycardia not currently on any rate control agent Time Spent with Patient Time attestation: Total time spent providing and/or coordinating discharge services: Discharge coordination time: Greater than 30 minutes Quality: Safe Use of Opioids Does Pt have an Active Cancer Diagnosis on the Problem List?: No Quality: Stroke Does the patient have a stroke diagnosis?: No Physical Exam Vital Signs: Vital Signs: Last Vital Signs Temp 97.8 F 11/21/21 07:08 Pulse 91 11/21/21 08:07 Resp 20 11/21/21 08:07 BP 164/73 H 11/21/21 07:08 Pulse Ox 91 L 11/21/21 07:08 O2 Del Method 11/21/21 07:08 O2 Flow Rate 3 11/21/21 04:00 Oxygen Flow Rate 3 11/19/21 17:14 BMI result Body Mass Index 29.4 Appearing in no acute distress head is normocephalic atraumatic eyes pupils are PERRLA sclera is anicteric mouth throat mucous membranes are intact and moist neck is supple no lymphadenopathy, no JVD noted lung sounds are clear to auscultation heart regular rate rhythm, clear S1, S2 positive bowel sounds, abdomen is soft, nontender neuro patient is alert x3, no focal deficits left foot surgical dressing intact, wound not visualized, dressing changed today 11/21 by general surgeon DS: Data Data Completed and Pending Completed studies during hospitalization [Text1]: Procedures Drainage of Left Foot Skin, External Approach (10/31/21) Insertion of Infusion Device into Superior Vena Cava, Percutaneous Approach (08/21/21) Pending studies at discharge: Pending at discharge 11/19/21 17:08 Surgical [PTH] Routine Labs on day of discharge: Laboratory Results - last 24 hr 11/20/21 11/20/21 11/20/21 11:20 14:16 15:19 WBC RBC Hgb Hct MCV MCH MCHC RDW Plt Count MPV Absolute Nucleated RBC Nucleated RBC % (auto) Sodium Potassium Chloride Carbon Dioxide Anion Gap BUN Creatinine Estim Creat Clear Calc Estimated GFR POC Glucose 176 H 137 H Random Glucose Calcium Vancomycin Trough 21.8 H Random Vancomycin 11/20/21 11/20/21 11/21/21 19:04 21:07 07:12 WBC RBC Hgb Hct MCV MCH MCHC RDW Plt Count MPV Absolute Nucleated RBC Nucleated RBC % (auto) Sodium Potassium Chloride Carbon Dioxide Anion Gap BUN Creatinine Estim Creat Clear Calc Estimated GFR POC Glucose 190 H 139 H Random Glucose Calcium Vancomycin Trough Random Vancomycin 16.2 11/21/21 11/21/21 11/21/21 08:58 08:58 08:58 WBC 6.1 RBC 3.84 L Hgb 9.1 L Hct 30.1 L MCV 78.4 L MCH 23.7 L MCHC 30.2 L RDW 17.1 H Plt Count 181 MPV 10.6 Absolute Nucleated RBC 0.000 Nucleated RBC % (auto) 0.0 Sodium 137 Potassium 3.9 Chloride 102 Carbon Dioxide 24 Anion Gap 15 BUN 12 Creatinine 1.57 H Estim Creat Clear Calc 41.7 Estimated GFR 35 POC Glucose Random Glucose 166 H Calcium 8.3 L Vancomycin Trough Random Vancomycin 19.3 Preliminary micro results at discharge 11/18/21 12:39 Blood Culture - Preliminary Blood - Venous Prelim: GNR Gram Stain only 11/19/21 Unknown Routine Culture - Preliminary Foot Left No growth to date. 11/18/21 13:06 Blood Culture - Preliminary Blood - Venous No growth after 48 hours. Discharge Plan Discharge Anticipated Discharge Date/Time: 11/21/21 09:55 Patient Disposition: Left Against Medical Advice Discharge Diagnosis: Left foot abscess GNR 1/2 bacteremia IRAIS Referrals: Angie Padilla MD [Physician] - 1 Week (blood culture follow up ) Hadley Crawford MD [Physician] - 1 Week (wound check ) Discharge Medications: New gabapentin 300 mg Capsule 600 mg PO BEDTIME Qty: 20 0RF levofloxacin 500 mg tablet 500 mg PO DAILY Qty: 10 0RF doxycycline hyclate 100 mg tablet 100 mg PO BID Qty: 20 0RF Continued atorvastatin 10 mg tablet 1 tab PO DAILY aspirin 81 mg tablet,delayed release (DR/EC) 1 tab PO DAILY albuterol sulfate [ProAir HFA] 90 mcg/actuation HFA aerosol inhaler 2 puff PO Q4H PRN (Reason: wheezing) glipizide-metformin 5-500 mg tablet 2 tab PO BID Advair HFA 115-21 mcg/actuation HFA aerosol inhaler 2 puff inhalation BID amlodipine 10 mg Tablet 10 mg PO DAILY 30 Days Qty: 30 0RF Protocol: Hold for SBP< HOLD for SBP < : 90 lisinopril-hydrochlorothiazide 20-12.5 mg tablet 1 tab PO DAILY insulin glargine [Lantus Solostar U-100 Insulin] 100 unit/mL (3 mL) insulin pen 10 unit subcut BEDTIME Incruse Ellipta 62.5 mcg/actuation blister with device 1 puff PO DAILY albuterol sulfate 2.5 mg /3 mL (0.083 %) Solution For Nebulization 2.5 mg INHALATION Q4H PRN (Reason: Respiratory Distress) ibuprofen 600 mg Tablet 600 mg PO TID MDD PAIN MODERATE PRN (Reason: Abdominal Discomfort) Qty: 30 0RF Discontinued gabapentin 300 mg capsule 2 cap PO BEDTIME linezolid [Zyvox] 600 mg tablet 600 mg PO Q12H 28 Days Qty: 56 0RF Discharge Orders: Discharge Order (Routine); Ordered 11/21/21 Ordered By: Elizabeth Gracia Diet: advance to usual diet Activity on Discharge: As tolerated Stand Alone Forms: Patient Portal Discharge page Other Ambulatory Orders: Basic Metabolic Panel (Routine) Timeframe: [id number] Facility: [facility] - Location: Laboratory Ordered By: Elizabeth Gracia Care Plan Goals: LEFT AMA (prior to final blood cx results) Health Concerns: Left foot abscess GNR 1/2 bacteremia IRAIS LEFT AMA Plan of Treatment: Please follow-up with Dr. Sandy Padilla for blood culture results Please follow up with heneral surgery for wound check Take all medications as prescribed Please check lab work on Monday Assessment: see discharge summary
--- NOTE | 2021-11-21 10:39 | MHC.CM.PN ---
PT LEFT AGAINST MEDICAL ADVICE
--- NOTE | 2021-11-21 10:55 | HO.POSTANES ---
Post Anesthesia Evaluation Post Anesthesia Evaluation Vital Signs: Vital Signs Temp Pulse Resp BP Pulse Ox O2 Del Method O2 Flow Rate 11/21/21 08:07 91 20 11/21/21 07:08 97.8 F 82 18 164/73 H 91 L Room Air 11/21/21 04:00 97.2 F 79 18 136/65 98 Nasal Cannula 3 11/20/21 23:56 97.1 F 71 18 131/61 99 Nasal Cannula 3 Anesthesia: General Endotracheal-GETA Mental Status: Awake Pain Control: Satisfactory Nausea/Vomiting: None Hydration: Adequate Anesthesia-Related Issues: No Anes. Related Issues
[2021-11-21 11:35] LABS: Glucose, Whole Blood 192 mg/dL (60-115)
--- NOTE | 2021-11-21 11:55 | PC.NURSE ---
patient does not want to wait for final blood culture results and wishes to leave AMA. 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
== END 2021-11-21 12:06 | disposition home or self-care (01) | DRG 344 ==
LOC: HO.ED 12:44 → HO.EDOVER 14:39 → HO.S3 15:55
PROVIDERS: Surgery; Admitting Provider Physician Assistant Medical; Emergency Provider Emergency Medicine; Visit Provider Nurse Practitioner Acute Care
PROC: 0JBR0ZZ Excision of Left Foot Subcutaneous Tissue and Fascia, Open Approach (ICD-10-PCS; principal; 2021-11-19 15:50)
DX: E11.621 Type 2 diabetes mellitus with foot ulcer (principal); M86.9 Osteomyelitis, unspecified; E11.42 Type 2 diabetes mellitus with diabetic polyneuropathy; L03.116 Cellulitis of left lower limb; L97.426 Non-pressure chronic ulcer of left heel and midfoot with bone involvement without evidence of necrosis; L02.612 Cutaneous abscess of left foot; E11.69 Type 2 diabetes mellitus with other specified complication; E11.628 Type 2 diabetes mellitus with other skin complications; J44.9 Chronic obstructive pulmonary disease, unspecified; F17.210 Nicotine dependence, cigarettes, uncomplicated; E87.6 Hypokalemia; K21.9 Gastro-esophageal reflux disease without esophagitis; Z71.6 Tobacco abuse counseling; Z20.822 Contact with and (suspected) exposure to COVID-19; Z88.0 Allergy status to penicillin; Z79.4 Long term (current) use of insulin; Z79.899 Other long term (current) drug therapy
CPT/HCPCS: 36415; 73620; 73720; 80048; 80202; 82947; 83036; 83605; 83690; 83735; 85025; 85027; 85652; 86140; 87040; 87071; 87076; 87185; 87205; 87635; 88304; 96361; 96374; 96375; 99284; 99285; A9585; J0131; J1170; J2250; J2270; J2405; J2543; J2795; J3010; J3370; J3475

== ENCOUNTER → 2021-12-02 10:01 | Outpatient (BNVA) | payer MEDICAID, SELFPAY | PROVIDERS: Visit Provider Surgery | DX: Z48.817 Encounter for surgical aftercare following surgery on the skin and subcutaneous tissue (principal); Z87.2 Personal history of diseases of the skin and subcutaneous tissue | CPT/HCPCS: 99212 ==

== ENCOUNTER 2022-02-11 14:54 | Emergency (ER) | payer MEDICAID, SELFPAY ==
[2022-02-11 15:07] VITALS: BP 162/98; PULSE 96; O2SAT 95
[2022-02-11 15:09] VITALS: BP 170/106; PULSE 115; RESP 22; TEMP 38.6; O2SAT 95; BMI 26.5
== END 2022-02-11 18:14 | disposition left against medical advice (07) ==
LOC: HO.ED 18:53
PROVIDERS: Emergency Provider Emergency Medicine
DX: R10.9 Unspecified abdominal pain (principal)
CPT/HCPCS: 99281

== ENCOUNTER 2022-02-13 11:39 | Emergency (ER) | payer MEDICAID, SELFPAY ==
--- NOTE | ~2022-02-13 | CT_ITS ---
EXAMINATION: CT ABDOMEN AND PELVIS WITH CONTRAST CLINICAL INFORMATION: Abdominal pain and fever COMPARISON: Previous CT of the abdomen and pelvis December 2020 TECHNIQUE: Multidetector volumetric images were obtained from the superior aspect of the liver through the pubic symphysis following administration 85 mL of Omnipaque 350 intravenous contrast. Sagittal and coronal reformatted images were obtained on the technologist's workstation. Oral contrast: Yes This CT examination was performed using dose optimization techniques as appropriate, variously including the following: *Automated exposure control *Adjustment of mA and/or kV according to patient size (this includes techniques or standardized protocols for targeted exams where dose is matched to indication/reason for exam; i.e. extremities or head) *Use of iterative reconstruction technique DLP: 580 mGy-cm FINDINGS: LUNG BASES: The visualized lung bases are unremarkable. LIVER, GALLBLADDER, AND BILIARY TREE: The liver is enlarged. There is a 1 cm low-attenuation lesion in the right lobe of the liver axial image 11 series 3. This has Hounsfield units measuring 42 not suggestive of a simple cyst. This is unchanged from old exams suggestive of a benign liver lesion. The gallbladder is normal. There is no biliary duct dilatation.. PANCREAS: Unremarkable. SPLEEN: The spleen is enlarged measuring 17 cm in length. ADRENAL GLANDS: Stable 1.5 cm left adrenal nodule. Normal right adrenal gland. KIDNEYS AND URETERS: There are small bilateral renal stones. There is mild right hydronephrosis. There is moderate right ureteral dilatation down to the bladder. There are multiple bilateral small pelvic calcifications. It is difficult to exclude a right distal ureteral stone, in particular a 2 mm calcification axial image 79 series 3. There is heterogeneous right nephrogram with low-attenuation areas in the lateral mid right kidney and posterior lower pole suggestive of pyelonephritis. There is stranding of the fat surrounding the right kidney and thickening of the pararenal fascia. It is uncertain whether this is related to obstruction/ backflow of urine or infection. BLADDER: Unremarkable. GASTROINTESTINAL TRACT: The small and large bowel are unremarkable. The appendix is unremarkable. ABDOMINAL WALL: No significant hernia is appreciated. LYMPH NODES: Normal. VASCULAR: Unremarkable. PELVIC VISCERA: Unremarkable. OSSEOUS STRUCTURES: Unremarkable. CT/CT abdomen pelvis w IV con IMPRESSION: Small bilateral renal stones. Heterogeneous right nephrogram suggestive of right pyelonephritis. Right hydronephrosis and ureteral dilatation down to the bladder. Question 2 mm right distal ureteral stone. Hepatosplenomegaly. Stable small liver and left adrenal lesions. Fleischner guidelines were followed.
[2022-02-13 11:50] VITALS: BP 138/66; PULSE 113; O2SAT 100
[2022-02-13 11:53] VITALS: BP 155/66; PULSE 101; RESP 18; TEMP 37.5; O2SAT 98; BMI 30.9
--- NOTE | 2022-02-13 12:08 | ECG_ITS ---
Test Reason : FALL Blood Pressure : / mmHG Vent. Rate : 107 BPM Atrial Rate : 107 BPM P-R Int : 138 ms QRS Dur : 078 ms QT Int : 392 ms P-R-T Axes : 071 044 086 degrees QTc Int : 523 ms Sinus tachycardia Nonspecific ST and T wave abnormality Abnormal ECG When compared with ECG of 24-AUG-2021 08:59, No significant change was found Referred By: Liya Corrales Electronically Signed By:JARRED BARRETO
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
[2022-02-13] MEDS: 0.9 % Sodium Chloride 1,000 ML 999 ML IV (12:44)
[2022-02-13] MEDS: Ketorolac Tromethamine 15 MG/ML VIAL IVPUSH (12:51)
[2022-02-13] MEDS: cefTRIAXone sodium 1 GM in 0.9 % Sodium Chloride 50 ML IV (12:52)
[2022-02-13 12:55] LABS: Hemoglobin 9.7 g/dl (12.0-16.0); Neutrophils Percent Auto 86.3 % (45-73); SCAN SMEAR FLAG 1
[2022-02-13 12:57] LABS: Basophils Percent Auto 0.5 % (0-2); Eosinophils Percent Auto 0.1 % (0-4); Hematocrit 30.2 % (37.0-47.0); Imm Gran Abs Auto 0.03 X10*3/uL (0.00-0.03); Imm Gran Pct Auto 0.4 % (0.0-0.4); Lymphocytes Absolute Auto 0.5 X10*3/uL (1.2-4.9); Lymphocytes Percent Auto 6.8 % (20-40); Mean Corpuscular HGB Conc 32.1 g/dl (31.0-35.0); Mean Corpuscular Hemoglobin 25.4 pg (27.0-33.0); Mean Corpuscular Volume 79.1 fL (80.0-98.0); Mean Platelet Volume 12.8 fL (9.4-12.3); Monocytes Absolute Auto 0.5 X10*3/uL (0.1-1.2); Monocytes Percent Auto 5.9 % (2-11); Neutrophils Absolute Auto 6.7 x10*3/uL (2.0-8.3); Platelet Count 118 X10*3/uL (160-400); Red Blood Count 3.82 X10*6/uL (4.20-5.50); White Blood Count 7.8 X10*3/uL (4.8-10.8)
[2022-02-13 13:03] LABS: Lactic Acid 1.5 mmol/L (0.5-2.0)
[2022-02-13 13:05] LABS: MANUAL DIFF FLAG NO; PLT ABN DIST 1
[2022-02-13 13:08] LABS: COVID-19 Test Negative (Negative); IDNOW Serial# 16C4AD1C
[2022-02-13 13:09] LABS: Alanine Aminotransferase 6 U/L (0-31); Albumin Level 2.9 g/dL (3.5-5.0); Alkaline Phosphatase 72 U/L (39-117); Anion Gap 18 (12-20); Aspartate Amino Transferase 6 U/L (5-31); Bilirubin Direct 0.3 mg/dL (0.0-0.5); Bilirubin Total 0.8 mg/dL (0.0-1.0); Blood Urea Nitrogen 12 mg/dL (9-16); Calcium 7.5 mg/dL (8.4-10.2); Carbon Dioxide 24 mmol/L (22-29); Chloride 96 mmol/L (96-108); Creatinine Clr Calc Pharmacy 65.5; Estimated Glomerular Filt Rate > 60; Glucose Random 336 mg/dL (60-115); Lipase 18 U/L (8-78); Magnesium 1.6 mg/dL (1.6-2.6); Potassium 3.8 mmol/L (3.3-5.1); Sodium 134 mmol/L (135-145); Total Protein 5.3 g/dL (6.5-8.0)
[2022-02-13 13:15] LABS: Troponin-I High Sensitivity 20.5 ng/L (<3.5-17.0)
--- NOTE | 2022-02-13 13:20 | PC.NURSE ---
at bedside reports isn't breathing. RR 16 sleeping unlabored. PA notified of 's request for cardaic monitor.
[2022-02-13 13:22] VITALS: BP 155/78; PULSE 105; RESP 20; TEMP 37.2; O2SAT 98
[2022-02-13] MEDS: iohexoL 350 MG/ML 100 ML INFUS..BTL IV (13:53)
[2022-02-13] MEDS: Acetaminophen 325 MG TABLET 650 MG PO (14:40)
[2022-02-13 14:46] LABS: Appearance Urine Cloudy; Color Urine Yellow; Glucose Urine UA 500 mg/dL (Negative); Leukocyte Esterase Urine Moderate (2+) (Negative); Nitrite Urine Positive (Negative); Specific Gravity - Urine >= 1.030 (1.005-1.025); Urine Blood Moderate (2+) (Negative); Urine Ketones 40 mg/dL (Negative); Urine Protein 300 (3+) mg/dL (Neg-Trace)
[2022-02-13 14:51] LABS: Bacteria Urine 2+ (None Seen); Hyaline Casts Urine 0-2 /LPF (0-2); Squamous Epithelial Cell Urine 0-2 /HPF (0-2); UACC Culture Trigger YES; WBC Urine >50 /HPF (0-5)
--- NOTE | 2022-02-13 15:37 | P.HPHOSP_ITS ---
History of Present Illness Date of Service: 02/13/22 Chief Complaint: sandy flank pain and abdominal pain, fever 51-year-old female with a past medical history of asthma, CAD, atrial tachycardia, COPD, diabetes, HTN, GERD, h/o osteomyelitis of the foot presenting with abdominal pain, sandy flank pain and fever complaining of bilateral flank pain and diffuse abdominal pain x3 days.? Patient [place] [facility] [place] LWD'd secondary to long wait time.? Reports fever, dysuria, urinary frequency, nausea, and vomiting.? States today had mechanical trip and fall after fighti Review of Systems Review of Systems: Gen: + fever Resp: no sob, no cough CV: no chest, no LEDBETTER, no leg edema GI: No n/v, no abd pain Neuro: No confusion [facility] Medical History Asthma Atherosclerotic cardiovascular disease Atrial tachycardia COPD (chronic obstructive pulmonary disease) COVID-19 vaccine series completed Diabetes Diabetic toe ulcer Essential hypertension GERD (gastroesophageal reflux disease) Hypertension Osteomyelitis Family History Mother Hx of CABG Sister CAD (coronary artery disease) Surgical History History of esophagogastroduodenoscopy (EGD) History of toe surgery (09/22/21) Social History Household Members: Spouse and Family Housing: Apartment Do you presently have visiting nurse or other home services: Yes Alcohol intake: never Patient Tobacco Use Status: Current everyday Tobacco user Tobacco use type: Cigarette Cigarettes Per Day: 1 Years Smoked: 43 e-Cigarette/Vaping Use: Never Used Second Hand Smoke Exposure: Yes Advance Directives: No Advance Directives Information Provided: No Advance Directives Date on File: 12/28/20 service: No Current occupational status: unemployed Meds Allergies Allergy/AdvReac Type Severity Reaction Status Date / Time Penicillins [PENICILLINS] Allergy Severe RASH Verified 02/11/22 15:09 amoxicillin [AMOXICILLIN] Allergy Intermediate HIVES Verified 02/11/22 15:09 Active Medications: Current Medications Sodium Chloride (Ns) 500 mls @ 999 mls/hr IV .Q31M MÓNICA Stop: 02/13/22 16:00 Pharmacy Consult (Consult Rx Perform Med Rec) 1 each MISCELLANE ONCE PRN PRN Reason: Consult order Home Medications Medication Instructions Recorded Confirmed Last Taken Type albuterol sulfate 90 mcg/actuation 2 puff PO Q4H PRN wheezing 12/24/20 02/13/22 10/30/21 History aerosol inhaler (ProAir HFA) aspirin 81 mg tablet,delayed 1 tab PO DAILY 12/24/20 02/13/22 10/30/21 History release atorvastatin 10 mg tablet 1 tab PO DAILY 12/24/20 12/02/21 10/30/21 History fluticasone propionate 115 2 puff inhalation BID 12/24/20 02/13/22 10/30/21 History mcg-salmeterol 21 mcg/actuation HFA inhaler (Advair HFA) glipizide 5 mg-metformin 500 mg 2 tab PO BID 12/24/20 12/02/21 10/30/21 History tablet albuterol sulfate 2.5 mg/3 mL 2.5 mg inhalation Q4H PRN 07/11/21 02/13/22 10/30/21 History (0.083 %) solution for nebulization Respiratory Distress insulin glargine 100 unit/mL (3 10 unit subcut BEDTIME 10/31/21 02/13/22 10/30/21 History mL) subcutaneous pen (Lantus Solostar U-100 Insulin) lisinopril 20 1 tab PO DAILY 10/31/21 12/02/21 10/30/21 History mg-hydrochlorothiazide 12.5 mg tablet umeclidinium 62.5 mcg/actuation 1 puff PO DAILY 10/31/21 12/02/21 10/30/21 History blister powder for inhalation (Incruse Ellipta) montelukast 10 mg tablet 1 tab PO QPM 02/13/22 02/13/22 Unknown History oxycodone 5 mg tablet 1 tab PO TID PRN moderate pain 02/13/22 02/13/22 Unknown History Physical Exam Vital Signs and Narrative: Vital Signs: Last Vital Signs Temp 98.9 F 02/13/22 13:22 Pulse 105 H 02/13/22 13:22 Resp 20 02/13/22 13:22 BP 155/78 H 02/13/22 13:22 Pulse Ox 98 02/13/22 13:22 O2 Del Method 02/13/22 13:22 BMI result Body Mass Index 30.9 Const: Other: Constitutional: Alert, in no distress, overweight. Mental Status: Oriented to person, place and time. Eyes: Pupils are equal, round and reactive to light. Ear, Nose and Throat: Oropharynx clear, mucous membranes moist. Ears and nose without eformities. Trachea midline. Respiratory: Clear to auscultation. No wheezing, rales or rhonchi. Cardiovascular: S1 S2 regular. No murmurs, rubs or gallops. Gastrointestinal: Abdomen soft, non-tender, non-distended. Normal bowel sounds.? Neurologic: Cranial nerves II-XII grossly intact. No focal neurological deficits. Moves all extremities spontaneously.? Skin: No rashes or lesions.? Musculoskeletal: No cyanosis or clubbing. Psychiatric: Normal mood and affect? Results Labs CBC and Chem 7: 02/13/22 12:39 02/13/22 12:39 Labs: Laboratory Results - last 24 hr 02/13/22 02/13/22 02/13/22 12:33 12:39 12:39 MCV 79.1 L MCH 25.4 L MCHC 32.1 RDW 15.0 Plt Count 118 L D MPV 12.8 H Immature Gran % (Auto) 0.4 Neut % (Auto) 86.3 H Lymph % (Auto) 6.8 L Hart % (Auto) 5.9 Eos % (Auto) 0.1 Baso % (Auto) 0.5 Lymph # (Auto) 0.5 L Hart # (Auto) 0.5 Eos # (Auto) 0.0 Baso # (Auto) 0.0 Abs Immat Gran (auto) 0.03 Absolute Neuts (auto) 6.7 Absolute Nucleated RBC 0.000 Nucleated RBC % (auto) 0.0 Anion Gap 18 Estim Creat Clear Calc 65.5 Estimated GFR > 60 Random Glucose 336 H Lactic Acid Calcium 7.5 L D Magnesium 1.6 Total Bilirubin 0.8 Direct Bilirubin 0.3 AST 6 ALT 6 Alkaline Phosphatase 72 D Total Protein 5.3 L Albumin 2.9 L Lipase 18 Urine Color Urine Appearance Urine pH Ur Specific [place] Urine Protein Urine Glucose (UA) Urine Ketones Urine Blood Urine Nitrite Ur Leukocyte Esterase Urine RBC Urine WBC Ur Squamous Epith Cells Urine Bacteria Hyaline Casts COVID-19 (KATHLEEN) Negative COVID-19 Clin Com See Note 02/13/22 02/13/22 12:39 14:37 MCV MCH MCHC RDW Plt Count MPV Immature Gran % (Auto) Neut % (Auto) Lymph % (Auto) Hart % (Auto) Eos % (Auto) Baso % (Auto) Lymph # (Auto) Hart # (Auto) Eos # (Auto) Baso # (Auto) Abs Immat Gran (auto) Absolute Neuts (auto) Absolute Nucleated RBC Nucleated RBC % (auto) Anion Gap Estim Creat Clear Calc Estimated GFR Random Glucose Lactic Acid 1.5 Calcium Magnesium Total Bilirubin Direct Bilirubin AST ALT Alkaline Phosphatase Total Protein Albumin Lipase Urine Color Yellow Urine Appearance Cloudy Urine pH 6.0 Ur Specific [place] >= 1.030 H Urine Protein 300 (3+) H Urine Glucose (UA) 500 H Urine Ketones 40 Urine Blood Moderate (2+) H Urine Nitrite Positive H Ur Leukocyte Esterase Moderate (2+) H Urine RBC 6-10 H Urine WBC >50 H Ur Squamous Epith Cells 0-2 Urine Bacteria 2+ Hyaline Casts 0-2 COVID-19 (KATHLEEN) COVID-19 Clin Com Imaging Radiologist's Impressions: Impressions Abdomen/Pelvis CT 02/13/22 13:56 IMPRESSION: Small bilateral renal stones. Heterogeneous right nephrogram suggestive of right pyelonephritis. Right hydronephrosis and ureteral dilatation down to the bladder. Question 2 mm right distal ureteral stone. Hepatosplenomegaly. Stable small liver and left adrenal lesions. Fleischner guidelines were followed. Assessment and Plan (1) Pyelonephritis: Status: Acute (2) Right ureteral stone: Status: Acute (3) Sepsis: Status: Acute Plan 51-year-old female with a past medical history of asthma, CAD , atrial tachycardia, COPD, diabetes, HTN, GERD, osteomyelitis, presenting to the ED via EMS complaining of bilateral flank pain and diffuse abdominal pain x3 days.? Patient states [place] [facility] [place] however LWD'd secondary to long wait time.? Reports fever, dysuria, urinary frequency, nausea, and vomiting.? States today had mechanical trip and fall after fighti #Sepsis #Acute pyelonephritis with infected stone -IV Ceftriaxone -IVF -Follow cultures -Urology consult #Hydornephrosis--uro consult #mild Hyponatremia--monitor #Diabetes--SSI # HTN DVT prophylaxis Admission to span at least 2 midnights for mangement of acute sepsis d/t Pyelenephritis and has risk for hemodynamics detelioration and therefore needs close monitoring Quality Stroke Does the patient have a stroke diagnosis?: No VTE Prior VTE?: No VTE Risk Level:: Medical - moderate - high VTE Device Contraindication: N/A - Device Ordered
[2022-02-13] MEDS: 0.9 % Sodium Chloride 500 ML 999 ML IV (15:43)
[2022-02-13] MEDS: Tamsulosin HCL 0.4 MG CAPSULE PO (15:44)
--- NOTE | 2022-02-13 16:03 | PC.NURSE ---
Pt given frequent education regarding the importance of admission. education offered x 4. Pt continues to report that the nurse said I could go home. It's bullshit. I can take care of this at home .
--- NOTE | 2022-02-13 16:06 | PC.NURSE ---
Liya Loyola at bedside to re explain the importance of admission.
--- NOTE | 2022-02-13 16:09 | PC.NURSE ---
Pt at this time is to sign out ama.
[2022-02-13 16:30] VITALS: BP 135/71; PULSE 90; RESP 19; TEMP 36.9; O2SAT 98
--- NOTE | 2022-02-13 16:43 | PHA.MEDREC ---
Pharmacy Consult ? Medication Reconciliation Patient requested to leave AMA prior to med rec. Med rec not completed.
== END 2022-02-14 18:18 | disposition home or self-care (01) ==
PROVIDERS: Physician Assistant; Emergency Provider Emergency Medicine
DX: N10 Acute pyelonephritis (principal); N20.1 Calculus of ureter; R50.9 Fever, unspecified; E11.9 Type 2 diabetes mellitus without complications; I10 Essential (primary) hypertension; I25.10 Atherosclerotic heart disease of native coronary artery without angina pectoris; F17.210 Nicotine dependence, cigarettes, uncomplicated; E87.1 Hypo-osmolality and hyponatremia; Z20.822 Contact with and (suspected) exposure to COVID-19; Z79.899 Other long term (current) drug therapy; Z71.6 Tobacco abuse counseling
CPT/HCPCS: 36415; 74177; 80048; 80076; 81001; 83605; 83690; 83735; 84484; 85025; 87040; 87077; 87086; 87186; 87205; 87635; 93005; 96365; 96375; 99284; J0696; J1885; Q9967

== ENCOUNTER 2022-02-13 19:58 | Inpatient (IN) | payer MEDICAID, SELFPAY ==
--- NOTE | ~2022-02-13 | XR_ITS ---
EXAMINATION: XR FOOT, LEFT CLINICAL INFORMATION: Deep wound. COMPARISON: Left foot 11/18/2021. MRI from 11/18/2021 TECHNIQUE: 3 views of the left foot. FINDINGS: Status post amputation of the second toe. Osteotomy of the distal second metatarsal. There is improved bone mineral density at the osteotomy site of the distal second metatarsal since prior study of 11/18/2021. This would suggest healing of previously seen osteomyelitis. No bone destruction at this time or abnormal periosteal reaction to suggest ongoing osteomyelitis. MRI without and with contrast would be more sensitive for further assessment. XR/XR foot LT 2V IMPRESSION: Status post amputation of the second toe. Improved bone mineral density of the second metatarsal at the amputation site since prior study of 11/18/2021. This suggests healing of previously seen osteomyelitis.
--- NOTE | 2022-02-13 20:06 | ED.GENADULT ---
HPI - General Adult General Chief complaint: Fever Stated complaint: ? Sepsis Alert Time Seen by Provider: 02/13/22 20:01 Source: patient and EMS Mode of arrival: EMS Limitations: no limitations History of Present Illness HPI narrative: Patient was just seen and left AMA for acute pyelonephritis. Patient does have past medical history of asthma, atrial tachycardia, COPD, diabetes, hypertension came for bilateral flank pain for last 3 days workup showed 2 mm right distal ureteric stone with hydro with infected urine normal WBC count and lactic acid level CT scan showed stranding of the fat surrounding the right kidney and thickening of the right pararenal fascia patient was given a dose of Rocephin and discharged on cefpodoxime comes back as she is not feeling good was tachycardic on arrival with heart rate of Related Data Home Medications Medication Instructions Recorded Confirmed albuterol sulfate 90 mcg/actuation 2 puff PO Q4H PRN wheezing 12/24/20 02/13/22 aerosol inhaler (ProAir HFA) aspirin 81 mg tablet,delayed 1 tab PO DAILY 12/24/20 02/13/22 release atorvastatin 10 mg tablet 1 tab PO DAILY 12/24/20 02/13/22 fluticasone propionate 115 2 puff inhalation BID 12/24/20 02/13/22 mcg-salmeterol 21 mcg/actuation HFA inhaler (Advair HFA) glipizide 5 mg-metformin 500 mg 2 tab PO BID 12/24/20 02/13/22 tablet albuterol sulfate 2.5 mg/3 mL 2.5 mg inhalation Q4H PRN 07/11/21 02/13/22 (0.083 %) solution for nebulization Respiratory Distress insulin glargine 100 unit/mL (3 10 unit subcut BEDTIME 10/31/21 02/13/22 mL) subcutaneous pen (Lantus Solostar U-100 Insulin) lisinopril 20 1 tab PO DAILY 10/31/21 02/13/22 mg-hydrochlorothiazide 12.5 mg tablet umeclidinium 62.5 mcg/actuation 1 puff PO DAILY 10/31/21 02/13/22 blister powder for inhalation (Incruse Ellipta) montelukast 10 mg tablet 1 tab PO QPM 02/13/22 02/13/22 oxycodone 5 mg tablet 1 tab PO TID PRN moderate pain 02/13/22 02/13/22 Previous Rx's Medication Instructions Recorded amlodipine 10 mg tablet 10 mg PO DAILY 30 days #30 tabs 12/27/20 doxycycline hyclate 100 mg tablet 100 mg PO BID #20 tabs 11/21/21 gabapentin 300 mg capsule 600 mg PO BEDTIME #20 caps 11/21/21 ibuprofen 600 mg tablet 600 mg PO TID PRN Abdominal 11/21/21 Discomfort #30 tabs levofloxacin 500 mg tablet 500 mg PO DAILY #10 tabs 11/21/21 tramadol 50 mg tablet 50 mg PO Q6H PRN pain #20 tabs 12/03/21 cefpodoxime 200 mg tablet 200 mg PO BID 10 days #20 tabs 02/13/22 Allergies Allergy/AdvReac Type Severity Reaction Status Date / Time Penicillins [PENICILLINS] Allergy Severe RASH Verified 02/11/22 15:09 amoxicillin [AMOXICILLIN] Allergy Intermediate HIVES Verified 02/11/22 15:09 Review of Systems Review of Systems: Yes all other systems are reviewed and are negative [facility] Past Medical History Medical History Asthma Atherosclerotic cardiovascular disease Atrial tachycardia COPD (chronic obstructive pulmonary disease) COVID-19 vaccine series completed Diabetes Diabetic toe ulcer Essential hypertension GERD (gastroesophageal reflux disease) Hypertension Osteomyelitis Surgical History History of esophagogastroduodenoscopy (EGD) History of toe surgery (09/22/21) Family History Family History Mother Hx of CABG Sister CAD (coronary artery disease) Social History Social History Household Members: Spouse and Family Housing: Apartment Do you presently have visiting nurse or other home services: Yes Alcohol intake: never Patient Tobacco Use Status: Current everyday Tobacco user Tobacco use type: Cigarette Cigarettes Per Day: 1 Years Smoked: 43 e-Cigarette/Vaping Use: Never Used Second Hand Smoke Exposure: Yes Use of substances other than those prescribed or required for medical reasons: No Advance Directives: No Advance Directives Information Provided: No Advance Directives Date on File: 12/28/20 service: No Current occupational status: unemployed Physical Exam ED Vital Signs: Vital Signs - 24 hr 02/13/22 20:08 02/13/22 20:32 02/13/22 21:44 Temperature 103.6 F H 100.4 F Pulse Rate 115 H 109 H Respiratory Rate 30 H 20 20 Blood Pressure 142/56 H 156/73 H 132/64 Pulse Oximetry 97 97 98 Oxygen Delivery Method Room Air Room Air Room Air 02/13/22 22:18 Temperature 98.6 F Pulse Rate 90 Respiratory Rate 18 Blood Pressure 123/60 Pulse Oximetry 100 Oxygen Delivery Method Room Air BMI result Body Mass Index 26.5 Appearance: Alert. Oriented X3. in moderate distress Eyes: PERRLA, No Nystagmus ENT: Pharynx normal. Oral Mucosa moist Neck: Normal inspection. Neck supple. CVS: Normal heart rate and rhythm. Pulses normal. Respiratory: No respiratory distress. Equal air entry bilateral, no wheezing/rales/rhonchi Abdomen: Soft and nontender. Bowel sounds are present, no mass palpable, no CVA tenderness Back: lumber tenderness diffuse Skin: Skin warm and dry. Normal skin color. Normal skin turgor. Extremities: No lower extremity edema. No calf tenderness Neuro: Oriented X 3. No motor deficit. No sensory deficit.No cerebellar signs , cranial nerves II-XII intact Medical Decision Making MDM Narrative Medical decision making narrative: Patient with obstructive 2 mm kidney stone on the right side with pyelonephritis spiking fever in spite of 1 dose of Rocephin given early will start patient on Levaquin pending cultures. Patient has a deep nonhealing wound with osteomyelitis of left side of the foot which seems to be improving at this time no significant pus discharge noticed x-ray negative for bony erosion Lab Data Lab results reviewed: Yes I reviewed the patient's lab results. Result diagrams: 02/13/22 20:22 02/13/22 20:22 Labs: Lab Results 02/13/22 02/13/22 02/13/22 Range/Units 20:22 20:22 20:22 WBC 6.9 (4.8-10.8) X10*3/uL RBC 3.78 L (4.20-5.50) X10*6/uL Hgb 9.4 L (12.0-16.0) g/dl Hct 29.6 L (37.0-47.0) % MCV 78.3 L (80.0-98.0) fL MCH 24.9 L (27.0-33.0) pg MCHC 31.8 (31.0-35.0) g/dl RDW 15.1 (11.0-16.0) % Plt Count 105 L (160-400) X10*3/uL MPV TNP Immature Gran % (Auto) 0.6 H (0.0-0.4) % Neut % (Auto) 87.0 H (45-73) % Lymph % (Auto) 4.9 L (20-40) % Menard % (Auto) 7.0 (2-11) % Eos % (Auto) 0.1 (0-4) % Baso % (Auto) 0.4 (0-2) % Lymph # (Auto) 0.3 L (1.2-4.9) X10*3/uL [place]ard # (Auto) 0.5 (0.1-1.2) X10*3/uL Eos # (Auto) 0.0 (0.0-0.4) X10*3/uL Baso # (Auto) 0.0 (0.0-0.2) X10*3/uL Abs Immat Gran (auto) 0.04 H (0.00-0.03) X10*3/uL Absolute Neuts (auto) 6.0 (2.0-8.3) x10*3/uL Absolute Nucleated RBC 0.000 (0.0-0.012) X10*3/uL Nucleated RBC % (auto) 0.0 (0.0-0.2) /100WBC VBG pH (7.32-7.43) VBG pCO2 mmHg VBG pO2 mmHg VBG HCO3 (22-26) mmol/L VBG O2 Saturation % VBG Base Excess mmol/L Sodium 136 (135-145) mmol/L Potassium 3.4 (3.3-5.1) mmol/L Chloride 100 (96-108) mmol/L Carbon Dioxide 21 L (22-29) mmol/L Anion Gap 18 (12-20) BUN 16 (9-16) mg/dL Creatinine 0.90 (0.5-1.4) mg/dL Estim Creat Clear Calc 69.2 Estimated GFR > 60 Random Glucose 278 H (60-115) mg/dL Lactic Acid 1.3 (0.5-2.0) mmol/L Calcium 7.3 L (8.4-10.2) mg/dL 02/13/22 Range/Units 20:31 WBC (4.8-10.8) X10*3/uL RBC (4.20-5.50) X10*6/uL Hgb (12.0-16.0) g/dl Hct (37.0-47.0) % MCV (80.0-98.0) fL MCH (27.0-33.0) pg MCHC (31.0-35.0) g/dl RDW (11.0-16.0) % Plt Count (160-400) X10*3/uL MPV Immature Gran % (Auto) (0.0-0.4) % Neut % (Auto) (45-73) % Lymph % (Auto) (20-40) % Menard % (Auto) (2-11) % Eos % (Auto) (0-4) % Baso % (Auto) (0-2) % Lymph # (Auto) (1.2-4.9) X10*3/uL Menard # (Auto) (0.1-1.2) X10*3/uL Eos # (Auto) (0.0-0.4) X10*3/uL Baso # (Auto) (0.0-0.2) X10*3/uL Abs Immat Gran (auto) (0.00-0.03) X10*3/uL Absolute Neuts (auto) (2.0-8.3) x10*3/uL Absolute Nucleated RBC (0.0-0.012) X10*3/uL Nucleated RBC % (auto) (0.0-0.2) /100WBC VBG pH 7.59 H (7.32-7.43) VBG pCO2 26 mmHg VBG pO2 202 mmHg VBG HCO3 25 (22-26) mmol/L VBG O2 Saturation 100.0 % VBG Base Excess 4.5 mmol/L Sodium (135-145) mmol/L Potassium (3.3-5.1) mmol/L Chloride (96-108) mmol/L Carbon Dioxide (22-29) mmol/L Anion Gap (12-20) BUN (9-16) mg/dL Creatinine (0.5-1.4) mg/dL Estim Creat Clear Calc Estimated GFR Random Glucose (60-115) mg/dL Lactic Acid (0.5-2.0) mmol/L Calcium (8.4-10.2) mg/dL Discharge Plan Discharge Clinical Impression: Pyelonephritis, Right ureteral stone Patient Disposition: Admitted As Inpatient
[2022-02-13 20:08] VITALS: BP 140/70; BP 142/56; PULSE 115; PULSE 120; RESP 30; TEMP 39.8; O2SAT 97; BMI 26.5
[2022-02-13 20:28] LABS: MANUAL DIFF FLAG NO
[2022-02-13] MEDS: 0.9 % Sodium Chloride 1,000 ML 999 ML IV (20:28)
[2022-02-13] MEDS: levoFLOXacin/D5W 750 MG/150 ML PIGGYBACK 100 MG IV (20:29)
[2022-02-13] MEDS: Ketorolac Tromethamine 30 MG/ML VIAL IVPUSH (20:29)
[2022-02-13] MEDS: ondansetron HCL 4 MG/2 ML VIAL IVPUSH (20:29)
[2022-02-13] MEDS: Acetaminophen 325 MG TABLET 650 MG PO (20:29)
[2022-02-13 20:32] VITALS: BP 156/73; PULSE 109; RESP 20; O2SAT 97
[2022-02-13 20:37] LABS: Venous Blood Gas Refer to POC result
[2022-02-13 20:37] LABS: VBG Base Excess 4.5 mmol/L; VBG HCO3 25 mmol/L (22-26); VBG pCO2 26 mmHg; VBG pH 7.59 (7.32-7.43); VBG pO2 202 mmHg
[2022-02-13 20:43] LABS: Basophils Percent Auto 0.4 % (0-2); Eosinophils Percent Auto 0.1 % (0-4); Hematocrit 29.6 % (37.0-47.0); Hemoglobin 9.4 g/dl (12.0-16.0); Imm Gran Abs Auto 0.04 X10*3/uL (0.00-0.03); Imm Gran Pct Auto 0.6 % (0.0-0.4); Lymphocytes Absolute Auto 0.3 X10*3/uL (1.2-4.9); Lymphocytes Percent Auto 4.9 % (20-40); Mean Corpuscular HGB Conc 31.8 g/dl (31.0-35.0); Mean Corpuscular Hemoglobin 24.9 pg (27.0-33.0); Mean Corpuscular Volume 78.3 fL (80.0-98.0); Monocytes Absolute Auto 0.5 X10*3/uL (0.1-1.2); Platelet Count 105 X10*3/uL (160-400); Red Blood Count 3.78 X10*6/uL (4.20-5.50); Red Cell Distribution Width 15.1 % (11.0-16.0); White Blood Count 6.9 X10*3/uL (4.8-10.8)
[2022-02-13 20:54] LABS: Lactic Acid 1.3 mmol/L (0.5-2.0)
[2022-02-13 20:57] LABS: Anion Gap 18 (12-20); Blood Urea Nitrogen 16 mg/dL (9-16); Calcium 7.3 mg/dL (8.4-10.2); Carbon Dioxide 21 mmol/L (22-29); Chloride 100 mmol/L (96-108); Creatinine Clr Calc Pharmacy 69.2; Estimated Glomerular Filt Rate > 60; Glucose Random 278 mg/dL (60-115); Potassium 3.4 mmol/L (3.3-5.1); Sodium 136 mmol/L (135-145)
[2022-02-13 21:44] VITALS: BP 132/64; RESP 20; TEMP 38; O2SAT 98
[2022-02-13 22:18] VITALS: BP 123/60; PULSE 90; RESP 18; TEMP 37; O2SAT 100
[2022-02-13 23:33] VITALS: BP 138/83; PULSE 85; RESP 12; TEMP 37.1; O2SAT 98
--- NOTE | 2022-02-13 23:42 | PM.IMHP ---
History of Present Illness Date of Service: 02/13/22 Chief Complaint: Flank pain 51-year-old female with a past medical history of hypertension, hyperlipidemia, diabetes, diabetic foot ulcer, GERD, osteomyelitis history, COPD, CAD, atrial tachycardia, asthma presented to the hospital today with a chief complaint of bilateral flank pain. Patient reports that for the past 2-3 days she has been having bilateral flank pains. Initial had urinary frequency and urgency. Denies any abdominal pain. Denies any chest pain or palpitations. Denies any fever chills cough or sputum production. Mentions that she initially presented to the ER today, was noted to have UTI, subsequently os for admission but she left AMA. Came back to the hospital for not feeling well. After came to the hospital she become febrile. Denies any nausea vomiting or diarrhea. Mentions that she has wound in her foot-healing. Has regular dressings done. Review of all other systems is negative except mentioned above ER course: Per ER team patient noted to have pyelonephritis, given Levaquin. Few minutes later patient cultures came back positive-growing Gram-negative rods. Currently vitals stable. Admitted to the hospital for further management. [facility] Medical History Asthma Atherosclerotic cardiovascular disease Atrial tachycardia COPD (chronic obstructive pulmonary disease) COVID-19 vaccine series completed Diabetes Diabetic toe ulcer Essential hypertension GERD (gastroesophageal reflux disease) Hypertension Osteomyelitis Family History Mother Hx of CABG Sister CAD (coronary artery disease) Surgical History History of esophagogastroduodenoscopy (EGD) History of toe surgery (09/22/21) Social History Household Members: Family Housing: Apartment Do you presently have visiting nurse or other home services: Yes Alcohol intake: never Patient Tobacco Use Status: Current everyday Tobacco user Tobacco use type: Cigarette Cigarettes Per Day: 1 Years Smoked: 43 e-Cigarette/Vaping Use: Never Used Second Hand Smoke Exposure: Yes Advance Directives Date on File: 12/28/20 service: No Current occupational status: unemployed Meds Allergies Allergy/AdvReac Type Severity Reaction Status Date / Time Penicillins [PENICILLINS] Allergy Severe RASH Verified 02/14/22 07:59 amoxicillin [AMOXICILLIN] Allergy Intermediate HIVES Verified 02/11/22 15:09 Active Medications: Current Medications Acetaminophen (Acetaminophen 325 Mg Tablet) 650 mg PO Q6H PRN PRN Reason: Pain, Mild (Pain Scale 1-3) Dextrose (Dextrose 50 % 25 Gm/50 Ml Syringe) 25 gm IVPUSH Q15M PRN; Protocol PRN Reason: per Hypoglycemia Standing Ord. Glucose (Glucose Gel 15 Gm Gel..Gram.) 15 gm PO Q15M PRN; Protocol PRN Reason: per Hypoglycemia Standing Ord. Heparin Sodium (Porcine) (Heparin Sodium,Porcine 5,000 Unit/Ml Vial) 5,000 unit SUBCUT Q8H MÓNICA Hydromorphone HCl (Hydromorphone Hcl 0.5 Mg/0.5 Ml Syringe) 0.5 mg IVPUSH Q4H PRN; Protocol PRN Reason: Pain, Severe (Pain Scale 7-10) Levofloxacin (Levaquin) 750 mg in 150 mls @ 100 mls/hr IV Q24H M[place]NICA Sodium Chloride (Ns) 1,000 mls @ 100 mls/hr IVCONT .Q10H [facility] Insulin Human Lispro (Insulin Lispro 100 Unit/Ml 3 Ml Vial) 0 unit SUBCUT QIDACHS [facility]; Protocol Melatonin (Melatonin 3 Mg Tablet) 6 mg PO BEDTIME PRN PRN Reason: Insomnia Senna (Sennosides 8.6 Mg Tablet) 17.2 mg PO BEDTIME PRN PRN Reason: Constipation Sodium Chloride (0.9 % Sodium Chloride Flush 3 Ml Syringe) 3 ml IVFLUSH QSHIFT [facility] Home Medications Medication Instructions Recorded Confirmed Last Taken Type albuterol sulfate 90 mcg/actuation 2 puff PO Q4H PRN wheezing 12/24/20 02/13/22 10/30/21 History aerosol inhaler (ProAir HFA) aspirin 81 mg tablet,delayed 1 tab PO DAILY 12/24/20 02/14/22 02/13/22 History release atorvastatin 10 mg tablet 1 tab PO DAILY 12/24/20 02/14/22 02/11/22 History fluticasone propionate 115 2 puff inhalation BID 12/24/20 02/14/22 02/11/22 History mcg-salmeterol 21 mcg/actuation HFA inhaler (Advair HFA) glipizide 5 mg-metformin 500 mg 2 tab PO BID 12/24/20 02/14/22 02/11/22 History tablet albuterol sulfate 2.5 mg/3 mL 2.5 mg inhalation Q4H PRN 07/11/21 02/14/22 02/11/22 History (0.083 %) solution for nebulization Respiratory Distress insulin glargine 100 unit/mL (3 10 unit subcut BEDTIME 10/31/21 02/14/22 02/13/22 History mL) subcutaneous pen (Lantus Solostar U-100 Insulin) lisinopril 20 1 tab PO DAILY 10/31/21 02/14/22 02/13/22 History mg-hydrochlorothiazide 12.5 mg tablet umeclidinium 62.5 mcg/actuation 1 puff PO DAILY 10/31/21 02/13/22 10/30/21 History blister powder for inhalation (Incruse Ellipta) montelukast 10 mg tablet 1 tab PO BEDTIME 02/13/22 02/14/22 02/13/22 History oxycodone 5 mg tablet 1 tab PO TID PRN moderate pain 02/13/22 02/14/22 02/11/22 History Physical Exam Vital Signs and Narrative: Vital Signs: Last Vital Signs Temp 98.7 F 02/13/22 23:33 Pulse 85 02/13/22 23:33 Resp 12 02/13/22 23:33 BP 138/83 02/13/22 23:33 Pulse Ox 98 02/13/22 23:33 O2 Del Method 02/13/22 23:33 BMI result Body Mass Index 26.5 Gen: Appears be in no acute distress HEENT: NCAT, Moist mucosa. Pulmonary: Vesicular breath sounds, fair air entry CVS: Normal S1-S2 Abdomen: BS+, Soft, Nontender Extremities: Warm well perfused; noted diabetic foot ulcer has shown in picture below Neuro: Alert and awake. Results Labs CBC and Chem 7: 02/14/22 09:52 02/14/22 09:52 Labs: Laboratory Results - last 24 hr 02/13/22 02/13/22 02/13/22 20:22 20:22 20:22 MCV 78.3 L MCH 24.9 L MCHC 31.8 RDW 15.1 Plt Count 105 L MPV TNP Immature Gran % (Auto) 0.6 H Neut % (Auto) 87.0 H Lymph % (Auto) 4.9 L [place] % (Auto) 7.0 Eos % (Auto) 0.1 Baso % (Auto) 0.4 Lymph # (Auto) 0.3 L [place] # (Auto) 0.5 Eos # (Auto) 0.0 Baso # (Auto) 0.0 Abs Immat Gran (auto) 0.04 H Absolute Neuts (auto) 6.0 Absolute Nucleated RBC 0.000 Nucleated RBC % (auto) 0.0 VBG pH VBG pCO2 VBG pO2 VBG HCO3 VBG O2 Saturation VBG Base Excess Anion Gap 18 Estim Creat Clear Calc 69.2 Estimated GFR > 60 Random Glucose 278 H Lactic Acid 1.3 Calcium 7.3 L 02/13/22 20:31 MCV MCH MCHC RDW Plt Count MPV Immature Gran % (Auto) Neut % (Auto) Lymph % (Auto) [place] % (Auto) Eos % (Auto) Baso % (Auto) Lymph # (Auto) [place] # (Auto) Eos # (Auto) Baso # (Auto) Abs Immat Gran (auto) Absolute Neuts (auto) Absolute Nucleated RBC Nucleated RBC % (auto) VBG pH 7.59 H VBG pCO2 26 VBG pO2 202 VBG HCO3 25 VBG O2 Saturation 100.0 VBG Base Excess 4.5 Anion Gap Estim Creat Clear Calc Estimated GFR Random Glucose Lactic Acid Calcium Imaging Radiologist's Impressions: Impressions Foot X-Ray 02/13/22 22:13 IMPRESSION: Status post amputation of the second toe. Improved bone mineral density of the second metatarsal at the amputation site since prior study of 11/18/2021. This suggests healing of previously seen osteomyelitis. Assessment and Plan (1) Pyelonephritis: Status: Acute Plan 51-year-old female with a past medical history of hypertension, hyperlipidemia, diabetes, diabetic foot ulcer, GERD, osteomyelitis history, COPD, CAD, atrial tachycardia, asthma presented to the hospital today with a chief complaint of bilateral flank pain. Noted to have pyelonephritis/bacteremia. Admitted for further management. Pyelonephritis/GNR bacteremia: Final blood culture results pending. Continue IV Levaquin. Id consult Pain control History of diabetes: Insulin sliding scale History of hypertension/hyperlipidemia: Continue home amlodipine, statin. Hold Lisinopril for now History of diabetic foot ulcer: Appears healing. Regular dressings. Wound consult follow-up. DVT prophylaxis: Subcu heparin Code status: Full code Quality Stroke Does the patient have a stroke diagnosis?: No VTE Prior VTE?: No VTE Risk Level:: Medical - moderate - high VTE Device Contraindication: Treatment Not Indicated VTE Drug Contraindication: N/A - Med Ordered
[2022-02-14] LABS: COVID-19 Test Negative (Negative)
[2022-02-14] MEDS: 0.9 % Sodium Chloride 1,000 ML 100 ML IVCONT ×2 (00:29→10:26)
[2022-02-14] MEDS: HYDROmorphone HCl 0.5 MG/0.5 ML SYRINGE IVPUSH (00:59)
[2022-02-14 04:02] VITALS: BP 145/64; PULSE 83; RESP 13; O2SAT 100
[2022-02-14] MEDS: oxyCODONE HCl Immed Release 5 MG TABLET PO (06:23)
[2022-02-14 07:24] VITALS: BP 145/59; PULSE 115; RESP 19; TEMP 38; O2SAT 94
--- NOTE | 2022-02-14 08:01 | PHA.MEDREC ---
Pharmacy Consult ? Medication Reconciliation Pharmacy has completed the medication reconciliation. Patient reports only taking oxycodone for pain. Patient's claim history cross-referenced. Patient's reasoning for inconsistency in refills as having a stockpile of the meds and reports only filling when low on medication.
--- NOTE | 2022-02-14 08:08 | PC.NURSE ---
pt a/o x 4 amb (I) gait steady and btb. pt c/o sob, lungs - sandy upper lobes cta, sandy lower lobes - diminished. pt apppeared winded and having a hard time breathing. 02 sat 95% on r/a pt placed on 2l/m via n/c. pt took 2 breaths of her rescue inhaler. resp called. heart sounds - regular. abd soft and n/t. bs + x 4 quads.pt aware of plan of are..
[2022-02-14 08:14] VITALS: PULSE 101; RESP 18; O2SAT 97
[2022-02-14] MEDS: Albuterol Sulfate (0.083%) 2.5 MG/3 ML VIAL.NEB INHALE (08:14)
--- NOTE | 2022-02-14 08:15 | PC.NURSE ---
pt refused breakfast at this time.
[2022-02-14 08:20] LABS: Glucose, Whole Blood 388 mg/dL (60-115)
--- NOTE | 2022-02-14 08:20 | PC.NURSE ---
rn to rn report given to justin.
[2022-02-14] MEDS: Atorvastatin Calcium 10 MG TABLET PO (08:34)
[2022-02-14] MEDS: Acetaminophen 325 MG TABLET 650 MG PO (08:34)
[2022-02-14] MEDS: Aspirin Enteric Coated 81 MG TABLET.DR PO (08:34)
[2022-02-14] MEDS: amLODIPine Besylate 10 MG TABLET PO (08:34)
[2022-02-14] MEDS: Insulin Lispro 100 UNIT/ML 3 ML VIAL SUBCUT ×2 (08:39→12:19)
--- NOTE | 2022-02-14 08:45 | PC.NURSE ---
pt took sips of her own gingerale . pt given insulin coverage 10units for poc of 388.
[2022-02-14] MEDS: 0.9 % Sodium Chloride Flush 3 ML SYRINGE IVFLUSH (08:47)
--- NOTE | 2022-02-14 09:33 | HO.PM.IMPN ---
Subjective Subjective Date of Service: 02/14/22 Interval History: F/u sepsis, pyelonephritis, hydrOnephrosis Interval history: Review of Systems abd pain no fever Physical Exam Vital Signs: Vital Signs: Last Vital Signs Temp 100.4 F 02/14/22 07:24 Pulse 101 H 02/14/22 08:14 Resp 18 02/14/22 08:14 BP 145/59 H 02/14/22 07:24 Pulse Ox 94 02/14/22 07:24 O2 Del Method 02/14/22 07:24 BMI result Body Mass Index 26.5 Objective Data Active Medications Acetaminophen (Acetaminophen 325 Mg Tablet) 650 mg PO Q6H PRN PRN Reason: Pain, Mild (Pain Scale 1-3) Last Admin: 02/14/22 08:34 Dose: 650 mg Documented By: YASMINE Albuterol Sulfate (Albuterol Sulfate 90 Mcg 8 Gm Inhaler) 2 puff INHALE Q4H PRN PRN Reason: wheezing Albuterol Sulfate (Albuterol Sulfate (0.083%) 2.5 Mg/3 Ml Vial.Chang) 2.5 mg INHALE Q4H PRN PRN Reason: Respiratory Distress Last Admin: 02/14/22 08:14 Dose: 2.5 mg Documented By: EMILIE Amlodipine Besylate (Amlodipine Besylate 10 Mg Tablet) 10 mg PO DAILY [facility]; Protocol Last Admin: 02/14/22 08:34 Dose: 10 mg Documented By: YASMINE Aspirin (Aspirin Enteric Coated 81 Mg Tablet.) 81 mg PO DAILY [facility] Last Admin: 02/14/22 08:34 Dose: 81 mg Documented By: YASMINE Atorvastatin Calcium (Atorvastatin Calcium 10 Mg Tablet) 10 mg PO DAILY [facility] Last Admin: 02/14/22 08:34 Dose: 10 mg Documented By: YASMINE Dextrose (Dextrose 50 % 25 Gm/50 Ml Syringe) 25 gm IVPUSH Q15M PRN; Protocol PRN Reason: per Hypoglycemia Standing Ord. Gabapentin (Gabapentin 300 Mg Capsule) 600 mg PO BEDTIME [facility] Glucose (Glucose Gel 15 Gm Gel..Gram.) 15 gm PO Q15M PRN; Protocol PRN Reason: per Hypoglycemia Standing Ord. Heparin Sodium (Porcine) (Heparin Sodium,Porcine 5,000 Unit/Ml Vial) 5,000 unit SUBCUT Q8H [facility] Last Admin: 02/14/22 08:40 Dose: Not Given Documented By: YASMINE Non-Admin Reason: Patient Refused Hydromorphone HCl (Hydromorphone Hcl 0.5 Mg/0.5 Ml Syringe) 0.5 mg IVPUSH Q4H PRN; Protocol PRN Reason: Pain, Severe (Pain Scale 7-10) Last Admin: 02/14/22 00:59 Dose: 0.5 mg Documented By: TANA Levofloxacin (Levaquin) 750 mg in 150 mls @ 100 mls/hr IV Q24H [facility] Sodium Chloride (Ns) 1,000 mls @ 100 mls/hr IVCONT .Q10H [facility] Last Admin: 02/14/22 00:29 Dose: 100 mls/hr Documented By: TANA Insulin Human Lispro (Insulin Lispro 100 Unit/Ml 3 Ml Vial) 0 unit SUBCUT QIDACHS [facility]; Protocol Last Admin: 02/14/22 08:39 Dose: 10 unit Documented By: YASMINE Melatonin (Melatonin 3 Mg Tablet) 6 mg PO BEDTIME PRN PRN Reason: Insomnia Montelukast Sodium (Montelukast Sodium 10 Mg Tablet) 10 mg PO BEDTIME [facility] Non-Formulary Medication (Umeclidinium [Incruse Ellipta]) 1 puff PO DAILY [facility] Oxycodone HCl (Oxycodone Hcl Immed Release 5 Mg Tablet) 5 mg PO TID PRN PRN Reason: Pain, Moderate (Pain Scale 4-6 Last Admin: 02/14/22 06:23 Dose: 5 mg Documented By: TANA Senna (Sennosides 8.6 Mg Tablet) 17.2 mg PO BEDTIME PRN PRN Reason: Constipation Sodium Chloride (0.9 % Sodium Chloride Flush 3 Ml Syringe) 3 ml IVFLUSH [facility] Last Admin: 02/14/22 08:47 Dose: 3 ml Documented By: YASMINE Labs CBC & Chem 7: 02/13/22 20:22 02/13/22 20:22 Labs: Laboratory Results - last 24 hr 02/13/22 02/13/22 02/13/22 20:22 20:22 20:22 MCV 78.3 L MCH 24.9 L MCHC 31.8 RDW 15.1 Plt Count 105 L MPV TNP Immature Gran % (Auto) 0.6 H Neut % (Auto) 87.0 H Lymph % (Auto) 4.9 L [place] % (Auto) 7.0 Eos % (Auto) 0.1 Baso % (Auto) 0.4 Lymph # (Auto) 0.3 L [place] # (Auto) 0.5 Eos # (Auto) 0.0 Baso # (Auto) 0.0 Abs Immat Gran (auto) 0.04 H Absolute Neuts (auto) 6.0 Absolute Nucleated RBC 0.000 Nucleated RBC % (auto) 0.0 VBG pH VBG pCO2 VBG pO2 VBG HCO3 VBG O2 Saturation VBG Base Excess Anion Gap 18 Estim Creat Clear Calc 69.2 Estimated GFR > 60 POC Glucose Random Glucose 278 H Lactic Acid 1.3 Calcium 7.3 L COVID-19 (KATHLEEN) COVID-19 Clin Com 02/13/22 02/13/22 02/14/22 20:31 23:35 08:17 MCV MCH MCHC RDW Plt Count MPV Immature Gran % (Auto) Neut % (Auto) Lymph % (Auto) [place] % (Auto) Eos % (Auto) Baso % (Auto) Lymph # (Auto) [place] # (Auto) Eos # (Auto) Baso # (Auto) Abs Immat Gran (auto) Absolute Neuts (auto) Absolute Nucleated RBC Nucleated RBC % (auto) VBG pH 7.59 H VBG pCO2 26 VBG pO2 202 VBG HCO3 25 VBG O2 Saturation 100.0 VBG Base Excess 4.5 Anion Gap Estim Creat Clear Calc Estimated GFR POC Glucose 388 H* Random Glucose Lactic Acid Calcium COVID-19 (KATHLEEN) Negative COVID-19 Clin Com See Note Assessment and Plan Plan 51-year-old female with a past medical history of asthma, CAD , atrial tachycardia, COPD, diabetes, HTN, GERD, osteomyelitis, presenting to the ED via EMS complaining of bilateral flank pain and diffuse abdominal pain x3 days.? Patient states she [place] [facility] however LWD'd secondary to long wait time.? Reports fever, dysuria, urinary frequency, nausea, and vomiting.? States today had mechanical trip and fall after fighti #Sepsis #Acute pyelonephritis with infected stone -IV Levaquin -IVF -Follow cultures -Urology consult #Hydornephrosis--uro consult #Foot ulcer--no sings of infection #mild Hyponatremia--monitor #Diabetes--SSI # HTN DVT prophylaxis: heparin need for inpatient: sepsis requiring IV antibitoics \ Quality VTE VTE Risk Level:: Medical - moderate - high VTE Device Contraindication: Treatment Not Indicated VTE Drug Contraindication: N/A - Med Ordered
[2022-02-14 09:34] VITALS: BP 140/61; PULSE 91; RESP 14; TEMP 36.4; O2SAT 99
[2022-02-14 10:02] LABS: MANUAL DIFF FLAG NO
[2022-02-14 10:05] LABS: Basophils Percent Auto 0.4 % (0-2); Eosinophils Absolute Auto 0.1 X10*3/uL (0.0-0.4); Hematocrit 25.8 % (37.0-47.0); Hemoglobin 8.2 g/dl (12.0-16.0); Imm Gran Abs Auto 0.02 X10*3/uL (0.00-0.03); Imm Gran Pct Auto 0.4 % (0.0-0.4); Lymphocytes Absolute Auto 0.3 X10*3/uL (1.2-4.9); Mean Corpuscular HGB Conc 31.8 g/dl (31.0-35.0); Mean Corpuscular Hemoglobin 25.4 pg (27.0-33.0); Mean Corpuscular Volume 79.9 fL (80.0-98.0); Monocytes Absolute Auto 0.3 X10*3/uL (0.1-1.2); Monocytes Percent Auto 6.8 % (2-11); Neutrophils Absolute Auto 4.3 x10*3/uL (2.0-8.3); Neutrophils Percent Auto 85.4 % (45-73); Red Blood Count 3.23 X10*6/uL (4.20-5.50)
[2022-02-14 10:33] LABS: Anion Gap 15 (12-20); Blood Urea Nitrogen 17 mg/dL (9-16); Calcium 6.9 mg/dL (8.4-10.2); Carbon Dioxide 22 mmol/L (22-29); Chloride 102 mmol/L (96-108); Creatinine Clr Calc Pharmacy 61.6; Estimated Glomerular Filt Rate 58; Glucose Random 342 mg/dL (60-115); Potassium 2.8 mmol/L (3.3-5.1); Sodium 136 mmol/L (135-145)
[2022-02-14 10:42] LABS: Platelet Count 97 X10*3/uL (160-400)
--- NOTE | 2022-02-14 10:47 | MHC.CM.PN ---
Addendum entered by Maria Luisa Casiano 02/14/22 12:29: PTS PCP IS THAD MAYBERRY Original Note: PT REPORTS SHE LIVES WITH HER S/O AND ADULT CHILDREN SHE REPORTS SHE USES DM SUPPLIES SHE REPORTS SHE GOES TO [facility] SHE SAYS SHE HAS A VNA, SHE THINKS IT IS [facility] SHE REPORTS SHE IS COVID VACCINATED WITH PFIZER X 3 SHE REPORTS SHE GOES TO [facility] IN [place] FOR PRIMARY CARE SHE HAS A HCP ON FILE CURRENT DC PLAN IS HOME WITH NO SERVICES PT TO ARRANGE TRANSPORT
--- NOTE | 2022-02-14 10:57 | PM.UROCN ---
History of Present Illness Consult details Consult date: 02/14/22 Narrative: Consulting complaint hydronephrosis question of distal stone Juan is a 51-year-old female. Initial presentation to emergency room with bilateral flank pain. Background poorly treated diabetes. Had associated urgency and frequency but no hematuria or dysuria Initially had been admitted for management of UTI but left AMA Re-presented. WBC 7.9, creatinine 0.9 CT scan with evidence of right pyelonephritis, question of right distal stone but 2 mm in difficult to discern from pelvic calcification. Glucose is over 300 throughout past few days High likelihood that urgency and frequency is related to classic diabetes mellitus with forced diuresis from glucosuria Blood culture positive Gram-negative rods, urine culture pending Likely urosepsis Managed as per Infectious Disease for complicated UTI Aggressive diabetic management No acute urologic intervention required. Should there be failure to recover may warrant right retrograde however this would be of uncertain value. Review of Systems Constitutional: Constitutional: Denies chills and Denies fever(s) Cardiovascular: Cardiovascular: Reports no additional cardiovascular complaints and Denies syncope Respiratory: Respiratory: Denies cough Gastrointestinal: Gastrointestinal: Denies abdominal pain and Denies heartburn Genitourinary: Genitourinary: Reports as per HPI and Denies change in libido Neurologic: Denies syncope Psychiatric: Psychiatric: Denies change in libido Endocrine: Endocrine: Denies change in libido [facility] Past Medical History Medical History Asthma Atherosclerotic cardiovascular disease Atrial tachycardia COPD (chronic obstructive pulmonary disease) COVID-19 vaccine series completed Diabetes Diabetic toe ulcer Essential hypertension GERD (gastroesophageal reflux disease) Hypertension Osteomyelitis Family History Family History Mother Hx of CABG Sister CAD (coronary artery disease) Surgical History Surgical History History of esophagogastroduodenoscopy (EGD) History of toe surgery (09/22/21) Social History Social History Household Members: Family Housing: Apartment Do you presently have visiting nurse or other home services: Yes Alcohol intake: never Patient Tobacco Use Status: Current everyday Tobacco user Tobacco use type: Cigarette Cigarettes Per Day: 1 Years Smoked: 43 e-Cigarette/Vaping Use: Never Used Second Hand Smoke Exposure: Yes Use of substances other than those prescribed or required for medical reasons: No Have you been hit, kicked, punched, or otherwise hurt by someone within the past year? If so, by whom?: No Do you feel safe in your current relationship?: Yes Advance Directives: No Advance Directives Information Provided: No Advance Directives Date on File: 12/28/20 Do you have thoughts of harming others: None Do you have a plan to hurt others: No Plan Recently lost weight without trying: No Patient : No Poor oral hygiene: No service: No Current occupational status: unemployed Meds Allergies Allergy/AdvReac Type Severity Reaction Status Date / Time Penicillins [PENICILLINS] Allergy Severe RASH Verified 02/14/22 07:59 amoxicillin [AMOXICILLIN] Allergy Intermediate HIVES Verified 02/11/22 15:09 Active Medications: Current Medications Acetaminophen (Acetaminophen 325 Mg Tablet) 650 mg PO Q6H PRN PRN Reason: Pain, Mild (Pain Scale 1-3) Last Admin: 02/14/22 08:34 Dose: 650 mg Albuterol Sulfate (Albuterol Sulfate 90 Mcg 8 Gm Inhaler) 2 puff INHALE Q4H PRN PRN Reason: wheezing Albuterol Sulfate (Albuterol Sulfate (0.083%) 2.5 Mg/3 Ml Vial.Neb) 2.5 mg INHALE Q4H PRN PRN Reason: Respiratory Distress Last Admin: 02/14/22 08:14 Dose: 2.5 mg Amlodipine Besylate (Amlodipine Besylate 10 Mg Tablet) 10 mg PO DAILY [facility]; Protocol Last Admin: 02/14/22 08:34 Dose: 10 mg Aspirin (Aspirin Enteric Coated 81 Mg Tablet.Dr) 81 mg PO DAILY [facility] Last Admin: 02/14/22 08:34 Dose: 81 mg Atorvastatin Calcium (Atorvastatin Calcium 10 Mg Tablet) 10 mg PO DAILY [facility] Last Admin: 02/14/22 08:34 Dose: 10 mg Dextrose (Dextrose 50 % 25 Gm/50 Ml Syringe) 25 gm IVPUSH Q15M PRN; Protocol PRN Reason: per Hypoglycemia Standing Ord. Gabapentin (Gabapentin 300 Mg Capsule) 600 mg PO BEDTIME [facility] Glucose (Glucose Gel 15 Gm Gel..Gram.) 15 gm PO Q15M PRN; Protocol PRN Reason: per Hypoglycemia Standing Ord. Heparin Sodium (Porcine) (Heparin Sodium,Porcine 5,000 Unit/Ml Vial) 5,000 unit SUBCUT Q8H [facility] Last Admin: 02/14/22 08:40 Dose: Not Given Hydromorphone HCl (Hydromorphone Hcl 0.5 Mg/0.5 Ml Syringe) 0.5 mg IVPUSH Q4H PRN; Protocol PRN Reason: Pain, Severe (Pain Scale 7-10) Last Admin: 02/14/22 00:59 Dose: 0.5 mg Levofloxacin (Levaquin) 750 mg in 150 mls @ 100 mls/hr IV Q24H MÓNICA Sodium Chloride (Ns) 1,000 mls @ 100 mls/hr IVCONT .Q10H [facility] Last Admin: 02/14/22 10:26 Dose: 100 mls/hr Insulin Human Lispro (Insulin Lispro 100 Unit/Ml 3 Ml Vial) 0 unit SUBCUT QIDACHS [facility]; Protocol Last Admin: 02/14/22 08:39 Dose: 10 unit Melatonin (Melatonin 3 Mg Tablet) 6 mg PO BEDTIME PRN PRN Reason: Insomnia Montelukast Sodium (Montelukast Sodium 10 Mg Tablet) 10 mg PO BEDTIME [facility] Non-Formulary Medication (Umeclidinium [Incruse Ellipta]) 1 puff PO DAILY [facility] Oxycodone HCl (Oxycodone Hcl Immed Release 5 Mg Tablet) 5 mg PO TID PRN PRN Reason: Pain, Moderate (Pain Scale 4-6 Last Admin: 02/14/22 06:23 Dose: 5 mg Senna (Sennosides 8.6 Mg Tablet) 17.2 mg PO BEDTIME PRN PRN Reason: Constipation Sodium Chloride (0.9 % Sodium Chloride Flush 3 Ml Syringe) 3 ml IVFLUSH QSHIFT [facility] Last Admin: 02/14/22 08:47 Dose: 3 ml Home Medications Medication Instructions Recorded Confirmed Last Taken Type albuterol sulfate 90 mcg/actuation 2 puff PO Q4H PRN wheezing 12/24/20 02/13/22 10/30/21 History aerosol inhaler (ProAir HFA) aspirin 81 mg tablet,delayed 1 tab PO DAILY 12/24/20 02/14/22 02/13/22 History release atorvastatin 10 mg tablet 1 tab PO DAILY 12/24/20 02/14/22 02/11/22 History fluticasone propionate 115 2 puff inhalation BID 12/24/20 02/14/22 02/11/22 History mcg-salmeterol 21 mcg/actuation HFA inhaler (Advair HFA) glipizide 5 mg-metformin 500 mg 2 tab PO BID 12/24/20 02/14/22 02/11/22 History tablet albuterol sulfate 2.5 mg/3 mL 2.5 mg inhalation Q4H PRN 07/11/21 02/14/22 02/11/22 History (0.083 %) solution for nebulization Respiratory Distress insulin glargine 100 unit/mL (3 10 unit subcut BEDTIME 10/31/21 02/14/22 02/13/22 History mL) subcutaneous pen (Lantus Solostar U-100 Insulin) lisinopril 20 1 tab PO DAILY 10/31/21 02/14/22 02/13/22 History mg-hydrochlorothiazide 12.5 mg tablet umeclidinium 62.5 mcg/actuation 1 puff PO DAILY 10/31/21 02/13/22 10/30/21 History blister powder for inhalation (Incruse Ellipta) montelukast 10 mg tablet 1 tab PO BEDTIME 02/13/22 02/14/22 02/13/22 History oxycodone 5 mg tablet 1 tab PO TID PRN moderate pain 02/13/22 02/14/22 02/11/22 History Physical Exam Vital Signs: Vital Signs: Last Vital Signs Temp 97.5 F 02/14/22 09:34 Pulse 91 02/14/22 09:34 Resp 14 02/14/22 09:34 BP 140/61 H 02/14/22 09:34 Pulse Ox 99 02/14/22 09:34 O2 Del Method 02/14/22 09:34 O2 Flow Rate 2.0 02/14/22 09:34 BMI result Body Mass Index 26.5 Const: General: cooperative, healthy appearing, comfortable and no acute distress Orientation/consciousness: patient oriented x3 HEENT: Face and sinus: Yes normal facial exam Mouth: moist mucous membranes Neck: Neck: Yes normal visual inspection, Yes full ROM and Yes trachea midline Chest: Chest palpation & inspection: normal inspection of the chest Resp: Effort & Inspection: normal respiratory effort, able to speak in complete sentences and no respiratory distress GI: Inspection: Yes normal to inspection Back/Spine/Pelvis: Cervical Spine: normal cervical lordosis Thoracic/Lumbar Spine: thoracic and lumbar spine normal to inspection Skin: General skin exam: no rashes or lesions noted Neuro: General: patient oriented x3, gait normal, tone normal and moves all extremities Extrem: General: Yes normal to inspection and Yes capillary refill normal Results Labs Result diagrams: 02/14/22 09:52 02/14/22 09:52 Labs: Abnormal lab results 02/13/22 02/13/22 02/13/22 Range/Units 20:22 20:22 20:31 RBC 3.78 L (4.20-5.50) X10*6/uL Hgb 9.4 L (12.0-16.0) g/dl Hct 29.6 L (37.0-47.0) % MCV 78.3 L (80.0-98.0) fL MCH 24.9 L (27.0-33.0) pg Plt Count 105 L (160-400) X10*3/uL Immature Gran % (Auto) 0.6 H (0.0-0.4) % Neut % (Auto) 87.0 H (45-73) % Lymph % (Auto) 4.9 L (20-40) % Lymph # (Auto) 0.3 L (1.2-4.9) X10*3/uL Abs Immat Gran (auto) 0.04 H (0.00-0.03) X10*3/uL VBG pH 7.59 H (7.32-7.43) Potassium (3.3-5.1) mmol/L Carbon Dioxide 21 L (22-29) mmol/L BUN (9-16) mg/dL POC Glucose (60-115) mg/dL Random Glucose 278 H (60-115) mg/dL Calcium 7.3 L (8.4-10.2) mg/dL 02/14/22 02/14/22 02/14/22 Range/Units 08:17 09:52 09:52 RBC 3.23 L (4.20-5.50) X10*6/uL Hgb 8.2 L (12.0-16.0) g/dl Hct 25.8 L (37.0-47.0) % MCV 79.9 L (80.0-98.0) fL MCH 25.4 L (27.0-33.0) pg Plt Count 97 L (160-400) X10*3/uL Immature Gran % (Auto) (0.0-0.4) % Neut % (Auto) 85.4 H (45-73) % Lymph % (Auto) 6.0 L (20-40) % Lymph # (Auto) 0.3 L (1.2-4.9) X10*3/uL Abs Immat Gran (auto) (0.00-0.03) X10*3/uL VBG pH (7.32-7.43) Potassium 2.8 L (3.3-5.1) mmol/L Carbon Dioxide (22-29) mmol/L BUN 17 H (9-16) mg/dL POC Glucose 388 H* (60-115) mg/dL Random Glucose 342 H (60-115) mg/dL Calcium 6.9 L (8.4-10.2) mg/dL Short CBC 02/13/22 02/14/22 Range/Units 20:22 09:52 WBC 6.9 5.0 (4.8-10.8) X10*3/uL Hgb 9.4 L 8.2 L (12.0-16.0) g/dl Hct 29.6 L 25.8 L (37.0-47.0) % Plt Count 105 L 97 L (160-400) X10*3/uL BMP 02/13/22 02/14/22 20:22 09:52 Sodium 136 136 Potassium 3.4 2.8 L Chloride 100 102 Carbon Dioxide 21 L 22 BUN 16 17 H Creatinine 0.90 1.01 Calcium 7.3 L 6.9 L All other labs normal. Assessment and Plan (1) Pyelonephritis: Status: Acute (2) Sepsis: Status: Acute Plan Conservative therapy with hydration, diabetic management, antibiotics Procedures Date of Service Date of Service: 02/14/22
[2022-02-14 11:05] VITALS: BP 121/65; PULSE 84; RESP 13; TEMP 36.2; O2SAT 100
[2022-02-14 11:20] LABS: Glucose, Whole Blood 225 mg/dL (60-115)
--- NOTE | 2022-02-14 12:40 | P.DS_ITS ---
DS: Providers Provider Date of Service: 02/14/22 Date of admission: 02/13/22 22:49 Primary care physician: Unknown Physician Consults: 02/14/22 03:38 Consult to Infectious Diseases Routine Consulting Provider: Angie Padilla Reason for consultation: Bacteremia 02/14/22 08:57 Consult to Urology Routine Consulting Provider: Inocente Blanc Reason for consultation: Pyelonephritis, hydronephrosis Has provider been notified: No DS: Diagnosis Discharge Diagnosis (1) Pyelonephritis: Status: Acute (2) Sepsis: Status: Acute DS: Summary Hospital Course Hospital Course: patient was admitted due to sepsis, pyelonephritis, kidney stone and hydronephrosis and was on iv antibiotics was to be further assess by urologist and decided to leave against medical advise. I advised against this and made it know that she was at risks of sespis getting worse and could lead to .. She was of sound mind, was able to repeat this back in her own words and proceeded to sign out.. Her signficant other was here to pick her up.. Advised to go to pharmacy and get Levaquin and to take as prescribed for to cover for gram negative félix bactermia sensitivity not yet available. Time Spent with Patient Time attestation: Total time spent providing and/or coordinating discharge services: Discharge coordination time: Greater than 30 minutes Quality: Safe Use of Opioids Does Pt have an Active Cancer Diagnosis on the Problem List?: No Quality: Stroke Does the patient have a stroke diagnosis?: No Physical Exam Vital Signs: Vital Signs: Last Vital Signs Temp 97.1 F 02/14/22 11:05 Pulse 84 02/14/22 11:05 Resp 13 02/14/22 11:05 BP 121/65 02/14/22 11:05 Pulse Ox 100 02/14/22 11:05 O2 Del Method 02/14/22 11:05 O2 Flow Rate 2.0 02/14/22 11:05 BMI result Body Mass Index 26.5 DS: Data Data Completed and Pending Completed studies during hospitalization [Text1]: Procedures Drainage of Left Foot Skin, External Approach (11/18/21) Excision of Left Foot Subcutaneous Tissue and Fascia, Open Approach (11/18/21) Insertion of Infusion Device into Superior Vena Cava, Percutaneous Approach (08/21/21) Labs on day of discharge: Laboratory Results - last 24 hr 02/13/22 02/13/22 02/13/22 20:22 20:22 20:22 WBC 6.9 RBC 3.78 L Hgb 9.4 L Hct 29.6 L MCV 78.3 L MCH 24.9 L MCHC 31.8 RDW 15.1 Plt Count 105 L MPV TNP Immature Gran % (Auto) 0.6 H Neut % (Auto) 87.0 H Lymph % (Auto) 4.9 L Osborne % (Auto) 7.0 Eos % (Auto) 0.1 Baso % (Auto) 0.4 Lymph # (Auto) 0.3 L Osborne # (Auto) 0.5 Eos # (Auto) 0.0 Baso # (Auto) 0.0 Abs Immat Gran (auto) 0.04 H Absolute Neuts (auto) 6.0 Absolute Nucleated RBC 0.000 Nucleated RBC % (auto) 0.0 VBG pH VBG pCO2 VBG pO2 VBG HCO3 VBG O2 Saturation VBG Base Excess Sodium 136 Potassium 3.4 Chloride 100 Carbon Dioxide 21 L Anion Gap 18 BUN 16 Creatinine 0.90 Estim Creat Clear Calc 69.2 Estimated GFR > 60 POC Glucose Random Glucose 278 H Lactic Acid 1.3 Calcium 7.3 L COVID-19 (KATHLEEN) COVID-19 Clin Com 02/13/22 02/13/22 02/14/22 20:31 23:35 08:17 WBC RBC Hgb Hct MCV MCH MCHC RDW Plt Count MPV Immature Gran % (Auto) Neut % (Auto) Lymph % (Auto) Osborne % (Auto) Eos % (Auto) Baso % (Auto) Lymph # (Auto) Osborne # (Auto) Eos # (Auto) Baso # (Auto) Abs Immat Gran (auto) Absolute Neuts (auto) Absolute Nucleated RBC Nucleated RBC % (auto) VBG pH 7.59 H VBG pCO2 26 VBG pO2 202 VBG HCO3 25 VBG O2 Saturation 100.0 VBG Base Excess 4.5 Sodium Potassium Chloride Carbon Dioxide Anion Gap BUN Creatinine Estim Creat Clear Calc Estimated GFR POC Glucose 388 H* Random Glucose Lactic Acid Calcium COVID-19 (KATHLEEN) Negative COVID-19 Clin Com See Note 02/14/22 02/14/22 02/14/22 09:52 09:52 11:09 WBC 5.0 RBC 3.23 L Hgb 8.2 L Hct 25.8 L MCV 79.9 L MCH 25.4 L MCHC 31.8 RDW 15.0 Plt Count 97 L MPV Not Reportable Immature Gran % (Auto) 0.4 Neut % (Auto) 85.4 H Lymph % (Auto) 6.0 L Osborne % (Auto) 6.8 Eos % (Auto) 1.0 Baso % (Auto) 0.4 Lymph # (Auto) 0.3 L Osborne # (Auto) 0.3 Eos # (Auto) 0.1 Baso # (Auto) 0.0 Abs Immat Gran (auto) 0.02 Absolute Neuts (auto) 4.3 Absolute Nucleated RBC 0.000 Nucleated RBC % (auto) 0.0 VBG pH VBG pCO2 VBG pO2 VBG HCO3 VBG O2 Saturation VBG Base Excess Sodium 136 Potassium 2.8 L Chloride 102 Carbon Dioxide 22 Anion Gap 15 BUN 17 H Creatinine 1.01 Estim Creat Clear Calc 61.6 Estimated GFR 58 POC Glucose 225 H Random Glucose 342 H Lactic Acid Calcium 6.9 L COVID-19 (KATHLEEN) COVID-19 Clin Com Discharge Plan Discharge Anticipated Discharge Date/Time: 02/14/22 12:37 Patient Disposition: Left Against Medical Advice Discharge Diagnosis: sepsis, pyelonephritis Referrals: Physician,Unknown J [Primary Care Provider] - 1 Week Discharge Medications: New levofloxacin 500 mg tablet 500 mg PO DAILY 7 Days Qty: 8 0RF Continued atorvastatin 10 mg tablet 1 tab PO DAILY aspirin 81 mg tablet,delayed release (DR/EC) 1 tab PO DAILY albuterol sulfate [ProAir HFA] 90 mcg/actuation HFA aerosol inhaler 2 puff PO Q4H PRN (Reason: wheezing) glipizide-metformin 5-500 mg tablet 2 tab PO BID Advair HFA 115-21 mcg/actuation HFA aerosol inhaler 2 puff inhalation BID amlodipine 10 mg Tablet 10 mg PO DAILY 30 Days Qty: 30 0RF Protocol: Hold for SBP< HOLD for SBP < : 90 lisinopril-hydrochlorothiazide 20-12.5 mg tablet 1 tab PO DAILY insulin glargine [Lantus Solostar U-100 Insulin] 100 unit/mL (3 mL) insulin pen 10 unit subcut BEDTIME Incruse Ellipta 62.5 mcg/actuation blister with device 1 puff PO DAILY montelukast 10 mg tablet 1 tab PO BEDTIME oxycodone 5 mg tablet 1 tab PO TID PRN (Reason: moderate pain) albuterol sulfate 2.5 mg /3 mL (0.083 %) Solution For Nebulization 2.5 mg INHALATION Q4H PRN (Reason: Respiratory Distress) gabapentin 300 mg Capsule 600 mg PO BEDTIME Qty: 20 0RF Discharge Orders: Discharge Order (Routine); Ordered 02/14/22 Ordered By: Delta Umaña Diet: Diabetic diet Activity on Discharge: As tolerated Care Plan Goals: left against medical advised Health Concerns: left against medical advised Plan of Treatment: take levaquin as directed and go see your doctor in a week, return to the emergency room with any new issues Assessment: as above Discharge Date/Time: 02/14/22 12:57
== END 2022-02-14 12:57 | disposition left against medical advice (07) | DRG 720 ==
LOC: HO.ED 20:49 → HO.EDOVER 23:01 → HO.S3 02-14 07:41
PROVIDERS: Admitting Provider Hospitalist; Emergency Provider Internal Medicine; Visit Provider Internal Medicine
DX: A41.9 Sepsis, unspecified organism (principal); E11.621 Type 2 diabetes mellitus with foot ulcer; L97.529 Non-pressure chronic ulcer of other part of left foot with unspecified severity; N13.6 Pyonephrosis; J44.9 Chronic obstructive pulmonary disease, unspecified; K21.9 Gastro-esophageal reflux disease without esophagitis; I10 Essential (primary) hypertension; F17.210 Nicotine dependence, cigarettes, uncomplicated; E11.69 Type 2 diabetes mellitus with other specified complication; M86.9 Osteomyelitis, unspecified; I25.10 Atherosclerotic heart disease of native coronary artery without angina pectoris; Z20.822 Contact with and (suspected) exposure to COVID-19; Z71.6 Tobacco abuse counseling; Z88.0 Allergy status to penicillin; Z79.4 Long term (current) use of insulin; Z79.84 Long term (current) use of oral hypoglycemic drugs; Z79.899 Other long term (current) drug therapy
CPT/HCPCS: 36415; 73620; 80048; 82803; 82947; 83605; 85025; 87635; 94640; 99285; J1170; J1885; J1956; J2405

== ENCOUNTER 2022-03-09 11:48 | Emergency (ER) | payer MEDICAID, SELFPAY ==
[2022-03-09] VITALS (8 sets, daily range): BP systolic 156–160; BP diastolic 79–81; PULSE 106–122; RESP 15–31; TEMP 36.6; O2SAT 97–100; BMI 33.2
--- NOTE | ~2022-03-09 | CT_ITS ---
EXAMINATION: CT ANGIOGRAM OF THE CHEST WITH AND WITHOUT CONTRAST (CT PULMONARY ANGIOGRAM FOR PE) CLINICAL INFORMATION: Reason for Exam dyspnea, elevated ddimer COMPARISON: Previous chest CTA December 2018 and chest x-ray most recent from earlier the same day TECHNIQUE: Prior to contrast administration, noncontrast localization images were obtained. Subsequently, multidetector volumetric imaging was performed from the thoracic inlet to below the diaphragms following the administration of 75 mL Omnipaque 350 intravenous contrast. No contrast reaction reported Sagittal, coronal, and MIP oblique sagittal reformatted images were obtained on the CT workstation, uploaded to PACS, and reviewed. This CT examination was performed using dose optimization techniques as appropriate, variously including the following: *Automated exposure control *Adjustment of mA and/or kV according to patient size (this includes techniques or standardized protocols for targeted exams where dose is matched to indication/reason for exam; i.e. extremities or head) *Use of iterative reconstruction technique Total exam dose-length product 473 mGy-cm FINDINGS: QUALITY OF STUDY/CONTRAST BOLUS: Satisfactory. PULMONARY ARTERIES: No central or segmental pulmonary emboli. THORACIC AORTA: No aneurysm or dissection. LUNG: No focal consolidation, nodules or masses. PLEURA: No pleural effusion or pneumothorax. MEDIASTINUM: Normal heart size. No pericardial effusion. There is shotty mediastinal and bilateral hilar lymphadenopathy. No enlarged lymph nodes seen. No evidence of septal bowing or right heart strain. CHEST WALL/AXILLA: No enlarged axillary or internal mammary lymphadenopathy. OSSEOUS STRUCTURES: No acute or suspicious osseous abnormality. UPPER ABDOMEN: The liver and spleen are not completely imaged but appear prominent. No reflux of contrast into the hepatic veins to suggest elevated right heart pressures. CT/CT angio chest PE protocol IMPRESSION: No evidence of pulmonary embolism. VTE: negative
--- NOTE | ~2022-03-09 | XR_ITS ---
EXAMINATION: XR CHEST CLINICAL INFORMATION: Artifact from breathing treatment. COMPARISON: 08/21/2021 chest radiograph. TECHNIQUE: Frontal view of the chest was obtained. FINDINGS: Low lung volumes and evaluation. The lungs are clear. No overt pneumothorax. The heart and mediastinal structures are unremarkable. XR/XR chest 1V IMPRESSION: Limited study without overt acute abnormality.
--- NOTE | 2022-03-09 11:54 | ECG_ITS ---
Test Reason : sob Blood Pressure : / mmHG Vent. Rate : 108 BPM Atrial Rate : 108 BPM P-R Int : 148 ms QRS Dur : 080 ms QT Int : 388 ms P-R-T Axes : 073 038 079 degrees QTc Int : 519 ms Sinus tachycardia Nonspecific T wave abnormality Abnormal ECG When compared with ECG of 13-FEB-2022 12:26, Nonspecific T wave abnormality no longer evident in Anterior leads Referred By: Suad Garnett Electronically Signed By:JARRED BARRETO
--- NOTE | 2022-03-09 12:07 | ED_ITS ---
HPI - SOB/Dyspnea General Chief Complaint: Upper Respiratory Symptoms Stated Complaint: DIFF BREATHING,CP Time Seen by Provider: 03/09/22 11:50 Source: patient and old records reviewed Mode of arrival: EMS Limitations: no limitations History of Present Illness HPI Narrative: 51 yo female from home with hx of COPD still smoking, DM with chronic foot wounds, DM, HTN, atrial tachycardia, asthma, hyperlipidemia, chronic pain here with c/o starting to have cough, wheezing, difficulty breathing starting yesterday. She called 911 this morning as nebulizers werent helping. BLS crew noted patient was on neb treatment and sats were in the 90s. Patient did improve slightly. Not currently on prednisone. Patient left AMA from inpatient 02/14 for pyelonephritis/kidney stone. MD elicited complaint: shortness of breath, cough and asthma attack Pertinent past history: COPD and asthma Onset (ago): day(s) (yesterday ) Context: recent illness and smoke/fume exposure Timing: progressively worsening Severity: severe Exacerbating factors: exertion, movement and coughing Relieving factors: oxygen, rest and bronchodilators Known history of: COPD, asthma and diabetes Associated symptoms: cough, wheezing and sputum production Treatment prior to arrival: oxygen and bronchodilator Related Data Home Medications Medication Instructions Recorded Confirmed albuterol sulfate 90 mcg/actuation 2 puff PO Q4H PRN wheezing 12/24/20 03/09/22 aerosol inhaler (ProAir HFA) aspirin 81 mg tablet,delayed 1 tab PO DAILY 12/24/20 03/09/22 release atorvastatin 10 mg tablet 1 tab PO DAILY 12/24/20 03/09/22 fluticasone propionate 115 2 puff inhalation BID 12/24/20 03/09/22 mcg-salmeterol 21 mcg/actuation HFA inhaler (Advair HFA) glipizide 5 mg-metformin 500 mg 2 tab PO BID 12/24/20 03/09/22 tablet albuterol sulfate 2.5 mg/3 mL 2.5 mg inhalation Q4H PRN 07/11/21 03/09/22 (0.083 %) solution for nebulization Respiratory Distress insulin glargine 100 unit/mL (3 12 unit subcut BEDTIME 10/31/21 03/09/22 mL) subcutaneous pen (Lantus Solostar U-100 Insulin) lisinopril 20 1 tab PO DAILY 10/31/21 03/09/22 mg-hydrochlorothiazide 12.5 mg tablet umeclidinium 62.5 mcg/actuation 1 puff PO DAILY 10/31/21 03/09/22 blister powder for inhalation (Incruse Ellipta) montelukast 10 mg tablet 1 tab PO BEDTIME 02/13/22 03/09/22 Previous Rx's Medication Instructions Recorded amlodipine 10 mg tablet 10 mg PO DAILY 30 days #30 tabs 12/27/20 gabapentin 300 mg capsule 600 mg PO BEDTIME #20 caps 11/21/21 azithromycin 250 mg tablet See Rx Instructions PO .COMPLEX #6 03/09/22 tabs furosemide 20 mg tablet (Lasix) 20 mg PO DAILY 3 days #3 tabs 03/09/22 potassium chloride 20 mEq 20 meq PO DAILY 5 days #5 tabs 03/09/22 tablet,extended release prednisone 20 mg tablet 40 mg PO DAILY 5 days #10 tabs 03/09/22 Allergies Allergy/AdvReac Type Severity Reaction Status Date / Time Penicillins [PENICILLINS] Allergy Severe RASH Verified 02/14/22 07:59 amoxicillin [AMOXICILLIN] Allergy Intermediate HIVES Verified 02/11/22 15:09 Review of Systems Review of Systems: Constitutional : No Fever, No Chills ENT/Mouth : No sore throat, No Rhinorrhea, No Swallowing Difficulty Eyes: No Eye Pain, No Swelling, No Redness Cardiovascular : No Chest Pain, positive SOB, No Orthopnea, no Edema Respiratory : pos Cough, pos Sputum, No Wheezing, positive dyspnea Gastrointestinal : No Nausea, No Vomiting, No Diarrhea, No abdominal Pain, No Hematochezia, No Melena Genitourinary : No Dysuria, No Urinary Frequency, No Hematuria Musculoskeletal : No joint pain, No Myalgias Skin : No Skin Lesions, No rash Neuro : No Weakness, No Numbness, No Dizziness, No Headache Psych : pos Anxiety/Panic, No Depression Heme/Lymph: No Bruising, No Lymphadenopathy Endocrine : No Polyuria, No Polydipsia All other systems reviewed and are negative [facility] Past Medical History Attestation statement: The following information was validated with the patient. Source: old records reviewed Medical History Asthma Atherosclerotic cardiovascular disease Atrial tachycardia COPD (chronic obstructive pulmonary disease) COVID-19 vaccine series completed Diabetes Diabetic toe ulcer Essential hypertension GERD (gastroesophageal reflux disease) Hypertension Osteomyelitis Surgical History History of esophagogastroduodenoscopy (EGD) History of toe surgery (09/22/21) Family History Family History Mother Hx of CABG Sister CAD (coronary artery disease) Social History Social History Household Members: Family Housing: Apartment Do you presently have visiting nurse or other home services: Yes Alcohol intake: never Patient Tobacco Use Status: Current everyday Tobacco user Tobacco use type: Cigarette Cigarettes Per Day: 1 Years Smoked: 43 e-Cigarette/Vaping Use: Never Used Second Hand Smoke Exposure: Yes Advance Directives: Yes Advance Directives on File: Yes Advance Directives Date on File: 12/28/20 service: No Current occupational status: unemployed Physical Exam Vital Signs: Vital Signs: Last Vital Signs Temp 98 F 03/09/22 12:28 Pulse 108 H 03/09/22 15:47 Resp 15 03/09/22 15:47 BP 156/79 H 03/09/22 14:53 Pulse Ox 98 03/09/22 14:53 O2 Del Method 03/09/22 14:53 BMI result Body Mass Index 33.2 Appearance: Alert. Oriented X3. Moderate acute distress. Eyes: Pupils equal, round and reactive to light. ENT: Pharynx normal. Neck: Normal inspection. Neck supple. CVS: tachcyardic heart rate and rhythm. Pulses normal. Respiratory: Moderate respiratory distress - tachypnea/retractions, labored. Breath sounds wheezes noted but severely diminished throughout Abdomen: Soft and nontender. Skin: Skin warm and clammy. pale skin color. Normal skin turgor. Extremities: No lower extremity edema. No calf ttp L foot healing ulcer looks significantly improved from prior images - no redness noted, no drainage, dressing removed Neuro: Oriented X 3. No motor deficit. No sensory deficit. Course Course Course Narrative: initially on EMS stretcher was slightly sleepy but now since on neb and bipap more awake and conversant will continue on bipap for the next 1 to 2 hours while she improves. patient much better at this time, on bipap resting easily woken by voice, lung sounds heard. repeat 5mg neb ordered will continue on bipap at this time and reassess. ABG ordered prior to patient coming off bipap CTA PE ordered, ddimer mildly elevated refusing ABG, agrees to VBG only unchanged - IV lasix ordered BNP 800 last ECHO august 2021 EF 60%, repeat trop ordered CTA pending much improved will attempt trial off bipap increase in troponin but not in ischemic range, no EKG changes and 20.4 is around her baseline. doing well off bipap repeat neb ordered. planned admit alert and oriented x 3, family at bedside patient now states she wants to leave aware that she is leaving against medical advice and that this could lead to significant morbidity or even . I told her family I do not recommend this given how she presented. The patient states she feels she can use her own neb machine at home. She is able to answer questions appropriately. She left AMA recently from inpatient stays on her last admissions. Patient and family refuse to stay states she can do this at home, aware CTA is pending - aware her CHF markers were up along with no final read on CTA. MDM - SOB/Dyspnea MDM Narrative Medical decision making narrative: 51 yo female from home with hx of COPD still smoking, DM with chronic foot wounds, DM, HTN, atrial tachycardia, asthma, hyperlipidemia, chronic pain here in resp distress with bilateral minimal lung sounds, wheezes, sputum production and smoking this AM. At this time placed on bipap given work of breathing - hour long neb 10mg, IV steroids/magnesium. Labs, cultures, CXR, COVID swab, empiric levofloxacin given her COPD exacerbation. Anticipate admission - COPD exacerbation with respiratory distress. Lab Data Result diagrams: 03/09/22 12:06 03/09/22 12:06 Labs: Lab Results 03/09/22 03/09/22 03/09/22 Range/Units 12:06 12:06 12:06 WBC 9.2 (4.8-10.8) X10*3/uL RBC 4.59 D (4.20-5.50) X10*6/uL Hgb 10.8 L D (12.0-16.0) g/dl Hct 36.4 L D (37.0-47.0) % MCV 79.3 L (80.0-98.0) fL MCH 23.5 L (27.0-33.0) pg MCHC 29.7 L (31.0-35.0) g/dl RDW 16.0 (11.0-16.0) % Plt Count 246 D (160-400) X10*3/uL MPV 11.7 (9.4-12.3) fL Immature Gran % (Auto) 0.3 (0.0-0.4) % Neut % (Auto) 66.5 (45-73) % Lymph % (Auto) 26.5 (20-40) % [place] % (Auto) 4.7 (2-11) % Eos % (Auto) 1.6 (0-4) % Baso % (Auto) 0.4 (0-2) % Lymph # (Auto) 2.4 (1.2-4.9) X10*3/uL [place] # (Auto) 0.4 (0.1-1.2) X10*3/uL Eos # (Auto) 0.2 (0.0-0.4) X10*3/uL Baso # (Auto) 0.0 (0.0-0.2) X10*3/uL Abs Immat Gran (auto) 0.03 (0.00-0.03) X10*3/uL Absolute Neuts (auto) 6.1 (2.0-8.3) x10*3/uL Absolute Nucleated RBC 0.000 (0.0-0.012) X10*3/uL Nucleated RBC % (auto) 0.0 (0.0-0.2) /100WBC PT (10.0-13.1) SEC INR (0.9-1.1) APTT (26.0-36.4) SEC D-Dimer High Sensitivty NG/ML VBG pH (7.32-7.43) VBG pCO2 mmHg VBG pO2 mmHg VBG HCO3 (22-26) mmol/L VBG O2 Saturation % VBG Base Excess mmol/L Sodium 139 (135-145) mmol/L Potassium 4.3 D (3.3-5.1) mmol/L Chloride 104 (96-108) mmol/L Carbon Dioxide 24 (22-29) mmol/L Anion Gap 15 (12-20) BUN 11 (9-16) mg/dL Creatinine 0.84 (0.5-1.4) mg/dL Estim Creat Clear Calc 73.5 Estimated GFR > 60 Random Glucose 266 H (60-115) mg/dL Lactic Acid (0.5-2.0) mmol/L Calcium 8.8 D (8.4-10.2) mg/dL Magnesium 1.7 (1.6-2.6) mg/dL Total Bilirubin 0.4 (0.0-1.0) mg/dL Direct Bilirubin 0.2 (0.0-0.5) mg/dL AST 10 D (5-31) U/L ALT 9 (0-31) U/L Alkaline Phosphatase 95 D (39-117) U/L Troponin I High Sens (<3.5-17.0) ng/L B-Natriuretic Peptide 800 H (<100) pg/mL Total Protein 6.8 D (6.5-8.0) g/dL Albumin 3.9 D (3.5-5.0) g/dL Lipase 8 (8-78) U/L Urine Color Urine Appearance Urine pH (5.0-9.0) Ur Specific [place] (1.005-1.025) Urine Protein (Neg-Trace) mg/dL Urine Glucose (UA) (Negative) mg/dL Urine Ketones (Negative) mg/dL Urine Blood (Negative) Urine Nitrite (Negative) Ur Leukocyte Esterase (Negative) Urine RBC (0-2) /HPF Urine WBC (0-5) /HPF Ur Squamous Epith Cells (0-2) /HPF Urine Bacteria (None Seen) Hyaline Casts (0-2) /LPF Urine Opiates Screen (Not Detect) Urine Fentanyl Screen (Not Detect) Ur Barbiturates Screen (Not Detect) Ur Phencyclidine Scrn (Not Detect) Ur Amphetamines Screen (Not Detect) U Benzodiazepines Scrn (Not Detect) Urine Cocaine Screen (Not Detect) U Marijuana (THC) Screen (Not Detect) COVID-19 (KATHLEEN) (Negative) COVID-19 Clin Com 03/09/22 03/09/22 03/09/22 Range/Units 12:06 12:06 12:06 WBC (4.8-10.8) X10*3/uL RBC (4.20-5.50) X10*6/uL Hgb (12.0-16.0) g/dl Hct (37.0-47.0) % MCV (80.0-98.0) fL MCH (27.0-33.0) pg MCHC (31.0-35.0) g/dl RDW (11.0-16.0) % Plt Count (160-400) X10*3/uL MPV (9.4-12.3) fL Immature Gran % (Auto) (0.0-0.4) % Neut % (Auto) (45-73) % Lymph % (Auto) (20-40) % [place] % (Auto) (2-11) % Eos % (Auto) (0-4) % Baso % (Auto) (0-2) % Lymph # (Auto) (1.2-4.9) X10*3/uL [place] # (Auto) (0.1-1.2) X10*3/uL Eos # (Auto) (0.0-0.4) X10*3/uL Baso # (Auto) (0.0-0.2) X10*3/uL Abs Immat Gran (auto) (0.00-0.03) X10*3/uL Absolute Neuts (auto) (2.0-8.3) x10*3/uL Absolute Nucleated RBC (0.0-0.012) X10*3/uL Nucleated RBC % (auto) (0.0-0.2) /100WBC PT 12.6 (10.0-13.1) SEC INR 1.1 (0.9-1.1) APTT 29.3 (26.0-36.4) SEC D-Dimer High Sensitivty 272 NG/ML VBG pH (7.32-7.43) VBG pCO2 mmHg VBG pO2 mmHg VBG HCO3 (22-26) mmol/L VBG O2 Saturation % VBG Base Excess mmol/L Sodium (135-145) mmol/L Potassium (3.3-5.1) mmol/L Chloride (96-108) mmol/L Carbon Dioxide (22-29) mmol/L Anion Gap (12-20) BUN (9-16) mg/dL Creatinine (0.5-1.4) mg/dL Estim Creat Clear Calc Estimated GFR Random Glucose (60-115) mg/dL Lactic Acid 1.7 (0.5-2.0) mmol/L Calcium (8.4-10.2) mg/dL Magnesium (1.6-2.6) mg/dL Total Bilirubin (0.0-1.0) mg/dL Direct Bilirubin (0.0-0.5) mg/dL AST (5-31) U/L ALT (0-31) U/L Alkaline Phosphatase (39-117) U/L Troponin I High Sens 11.2 (<3.5-17.0) ng/L B-Natriuretic Peptide (<100) pg/mL Total Protein (6.5-8.0) g/dL Albumin (3.5-5.0) g/dL Lipase (8-78) U/L Urine Color Urine Appearance Urine pH (5.0-9.0) Ur Specific [place] (1.005-1.025) Urine Protein (Neg-Trace) mg/dL Urine Glucose (UA) (Negative) mg/dL Urine Ketones (Negative) mg/dL Urine Blood (Negative) Urine Nitrite (Negative) Ur Leukocyte Esterase (Negative) Urine RBC (0-2) /HPF Urine WBC (0-5) /HPF Ur Squamous Epith Cells (0-2) /HPF Urine Bacteria (None Seen) Hyaline Casts (0-2) /LPF Urine Opiates Screen (Not Detect) Urine Fentanyl Screen (Not Detect) Ur Barbiturates Screen (Not Detect) Ur Phencyclidine Scrn (Not Detect) Ur Amphetamines Screen (Not Detect) U Benzodiazepines Scrn (Not Detect) Urine Cocaine Screen (Not Detect) U Marijuana (THC) Screen (Not Detect) COVID-19 (KATHLEEN) (Negative) COVID-19 Clin Com 03/09/22 03/09/22 03/09/22 Range/Units 12:32 12:39 14:01 WBC (4.8-10.8) X10*3/uL RBC (4.20-5.50) X10*6/uL Hgb (12.0-16.0) g/dl Hct (37.0-47.0) % MCV (80.0-98.0) fL MCH (27.0-33.0) pg MCHC (31.0-35.0) g/dl RDW (11.0-16.0) % Plt Count (160-400) X10*3/uL MPV (9.4-12.3) fL Immature Gran % (Auto) (0.0-0.4) % Neut % (Auto) (45-73) % Lymph % (Auto) (20-40) % [place] % (Auto) (2-11) % Eos % (Auto) (0-4) % Baso % (Auto) (0-2) % Lymph # (Auto) (1.2-4.9) X10*3/uL [place] # (Auto) (0.1-1.2) X10*3/uL Eos # (Auto) (0.0-0.4) X10*3/uL Baso # (Auto) (0.0-0.2) X10*3/uL Abs Immat Gran (auto) (0.00-0.03) X10*3/uL Absolute Neuts (auto) (2.0-8.3) x10*3/uL Absolute Nucleated RBC (0.0-0.012) X10*3/uL Nucleated RBC % (auto) (0.0-0.2) /100WBC PT (10.0-13.1) SEC INR (0.9-1.1) APTT (26.0-36.4) SEC D-Dimer High Sensitivty NG/ML VBG pH 7.31 L (7.32-7.43) VBG pCO2 54 mmHg VBG pO2 48 mmHg VBG HCO3 27 H (22-26) mmol/L VBG O2 Saturation 70.0 % VBG Base Excess 1.1 mmol/L Sodium (135-145) mmol/L Potassium (3.3-5.1) mmol/L Chloride (96-108) mmol/L Carbon Dioxide (22-29) mmol/L Anion Gap (12-20) BUN (9-16) mg/dL Creatinine (0.5-1.4) mg/dL Estim Creat Clear Calc Estimated GFR Random Glucose (60-115) mg/dL Lactic Acid (0.5-2.0) mmol/L Calcium (8.4-10.2) mg/dL Magnesium (1.6-2.6) mg/dL Total Bilirubin (0.0-1.0) mg/dL Direct Bilirubin (0.0-0.5) mg/dL AST (5-31) U/L ALT (0-31) U/L Alkaline Phosphatase (39-117) U/L Troponin I High Sens 20.4 H D (<3.5-17.0) ng/L B-Natriuretic Peptide (<100) pg/mL Total Protein (6.5-8.0) g/dL Albumin (3.5-5.0) g/dL Lipase (8-78) U/L Urine Color Urine Appearance Urine pH (5.0-9.0) Ur Specific [place] (1.005-1.025) Urine Protein (Neg-Trace) mg/dL Urine Glucose (UA) (Negative) mg/dL Urine Ketones (Negative) mg/dL Urine Blood (Negative) Urine Nitrite (Negative) Ur Leukocyte Esterase (Negative) Urine RBC (0-2) /HPF Urine WBC (0-5) /HPF Ur Squamous Epith Cells (0-2) /HPF Urine Bacteria (None Seen) Hyaline Casts (0-2) /LPF Urine Opiates Screen (Not Detect) Urine Fentanyl Screen (Not Detect) Ur Barbiturates Screen (Not Detect) Ur Phencyclidine Scrn (Not Detect) Ur Amphetamines Screen (Not Detect) U Benzodiazepines Scrn (Not Detect) Urine Cocaine Screen (Not Detect) U Marijuana (THC) Screen (Not Detect) COVID-19 (KATHLEEN) Negative (Negative) COVID-19 Clin Com See Note 03/09/22 03/09/22 03/09/22 Range/Units 14:05 14:59 14:59 WBC (4.8-10.8) X10*3/uL RBC (4.20-5.50) X10*6/uL Hgb (12.0-16.0) g/dl Hct (37.0-47.0) % MCV (80.0-98.0) fL MCH (27.0-33.0) pg MCHC (31.0-35.0) g/dl RDW (11.0-16.0) % Plt Count (160-400) X10*3/uL MPV (9.4-12.3) fL Immature Gran % (Auto) (0.0-0.4) % Neut % (Auto) (45-73) % Lymph % (Auto) (20-40) % [place] % (Auto) (2-11) % Eos % (Auto) (0-4) % Baso % (Auto) (0-2) % Lymph # (Auto) (1.2-4.9) X10*3/uL [place] # (Auto) (0.1-1.2) X10*3/uL Eos # (Auto) (0.0-0.4) X10*3/uL Baso # (Auto) (0.0-0.2) X10*3/uL Abs Immat Gran (auto) (0.00-0.03) X10*3/uL Absolute Neuts (auto) (2.0-8.3) x10*3/uL Absolute Nucleated RBC (0.0-0.012) X10*3/uL Nucleated RBC % (auto) (0.0-0.2) /100WBC PT (10.0-13.1) SEC INR (0.9-1.1) APTT (26.0-36.4) SEC D-Dimer High Sensitivty NG/ML VBG pH 7.31 L (7.32-7.43) VBG pCO2 54 mmHg VBG pO2 47 mmHg VBG HCO3 27 H (22-26) mmol/L VBG O2 Saturation 68.0 % VBG Base Excess 0.8 mmol/L Sodium (135-145) mmol/L Potassium (3.3-5.1) mmol/L Chloride (96-108) mmol/L Carbon Dioxide (22-29) mmol/L Anion Gap (12-20) BUN (9-16) mg/dL Creatinine (0.5-1.4) mg/dL Estim Creat Clear Calc Estimated GFR Random Glucose (60-115) mg/dL Lactic Acid (0.5-2.0) mmol/L Calcium (8.4-10.2) mg/dL Magnesium (1.6-2.6) mg/dL Total Bilirubin (0.0-1.0) mg/dL Direct Bilirubin (0.0-0.5) mg/dL AST (5-31) U/L ALT (0-31) U/L Alkaline Phosphatase (39-117) U/L Troponin I High Sens (<3.5-17.0) ng/L B-Natriuretic Peptide (<100) pg/mL Total Protein (6.5-8.0) g/dL Albumin (3.5-5.0) g/dL Lipase (8-78) U/L Urine Color Yellow Urine Appearance Clear Urine pH 5.5 (5.0-9.0) Ur Specific [place] <= 1.005 (1.005-1.025) Urine Protein 30 (1+) H (Neg-Trace) mg/dL Urine Glucose (UA) 100 H (Negative) mg/dL Urine Ketones Negative (Negative) mg/dL Urine Blood Negative (Negative) Urine Nitrite Negative (Negative) Ur Leukocyte Esterase Negative (Negative) Urine RBC 0-2 (0-2) /HPF Urine WBC 0-5 (0-5) /HPF Ur Squamous Epith Cells 0-2 (0-2) /HPF Urine Bacteria None Seen (None Seen) Hyaline Casts 0-2 (0-2) /LPF Urine Opiates Screen Not Detected (Not Detect) Urine Fentanyl Screen Not Detected (Not Detect) Ur Barbiturates Screen Not Detected (Not Detect) Ur Phencyclidine Scrn Not Detected (Not Detect) Ur Amphetamines Screen Not Detected (Not Detect) U Benzodiazepines Scrn Not Detected (Not Detect) Urine Cocaine Screen Not Detected (Not Detect) U Marijuana (THC) Screen Not Detected (Not Detect) COVID-19 (KATHLEEN) (Negative) COVID-19 Clin Com ECG Data Attestation: I personally reviewed and interpreted this ECG as follows: ECG interpretation date: 03/09/22 ECG interpretation time: 12:59 Interpretation: Rate: 108 Rhythm: sinus tachycardia [place]: normal Normal P waves. Normal ADA. Normal QRS complex. Poor R wave progression ST T wave : ST seg depression V4-V6, flat t waves in I and aVL no KYRIE qTC: normal prior studies: unchanged from prior The study has been interpreted contemporaneously by me. . Critical Care Time Critical Care Time Critical Care Time: Yes Total Critical Care Time: 60 Attestation: hour long nebs, bipap, repeat assessments, VBG, repeat blood work, admission, review of records I attest to this time spent taking care of the patient Discharge Plan Discharge Clinical Impression: Acute exacerbation of chronic obstructive pulmonary disease, Acute respiratory distress Pulmonary edema Qualifiers: Chronicity: acute Qualified Code(s): J81.0 - Acute pulmonary edema Patient Disposition: Left Against Medical Advice Instructions: Heart Failure (ED), COPD (Chronic Obstructive Pulmonary Disease) (ED), Against Medical Advice (ED) Additional Instructions: you were offered admission but refused, this could lead to significant injury or even . It was not recommedned that you leave the hospital. you were given medications to treat fluid on your lungs, infection, steroids and multiple nebulizer treatments. you left in the middle of your workup including a CT scan of your chest that did not have a final read done by a radiologist to see if there is a small blood clot in your lung you are welcome to return to the ED at any time Prescriptions: New azithromycin 250 mg tablet See Rx Instructions .ROUTE .COMPLEX Qty: 6 0RF Rx Instructions: For 250 mg dose pack: take 500 mg today (day 1), then 250 mg for 4 days (days 2-5) prednisone 20 mg tablet 40 mg PO DAILY 5 Days Qty: 10 0RF furosemide [Lasix] 20 mg tablet 20 mg PO DAILY 3 Days Qty: 3 0RF Rx Instructions: start on 03/10 potassium chloride 20 mEq tablet extended release 20 meq PO DAILY 5 Days Qty: 5 0RF No Action atorvastatin 10 mg tablet 1 tab PO DAILY aspirin 81 mg tablet,delayed release (DR/EC) 1 tab PO DAILY albuterol sulfate [ProAir HFA] 90 mcg/actuation HFA aerosol inhaler 2 puff PO Q4H PRN (Reason: wheezing) glipizide-metformin 5-500 mg tablet 2 tab PO BID Advair HFA 115-21 mcg/actuation HFA aerosol inhaler 2 puff inhalation BID amlodipine 10 mg Tablet 10 mg PO DAILY 30 Days Qty: 30 0RF Protocol: Hold for SBP< HOLD for SBP < : 90 lisinopril-hydrochlorothiazide 20-12.5 mg tablet 1 tab PO DAILY insulin glargine [Lantus Solostar U-100 Insulin] 100 unit/mL (3 mL) insulin pen 12 unit subcut BEDTIME Incruse Ellipta 62.5 mcg/actuation blister with device 1 puff PO DAILY montelukast 10 mg tablet 1 tab PO BEDTIME albuterol sulfate 2.5 mg /3 mL (0.083 %) Solution For Nebulization 2.5 mg INHALATION Q4H PRN (Reason: Respiratory Distress) gabapentin 300 mg Capsule 600 mg PO BEDTIME Qty: 20 0RF
[2022-03-09] MEDS: methylPREDNISolone Sod Succ 125 MG/2 ML VIAL IVPUSH (12:08)
[2022-03-09] MEDS: Magnesium Sulfate/H2O 2 GM/50 ML PIGGYBACK IV (12:08)
[2022-03-09] MEDS: levoFLOXacin/D5W 500 MG/100 ML PIGGYBACK 100 MG IV (12:10)
[2022-03-09] MEDS: Albuterol Sulfate 2.5 MG/0.5 ML VIAL.NEB 10 MG INHALE (12:12)
[2022-03-09 12:19] LABS: MANUAL DIFF FLAG NO
[2022-03-09 12:21] LABS: Basophils Percent Auto 0.4 % (0-2); Eosinophils Absolute Auto 0.2 X10*3/uL (0.0-0.4); Eosinophils Percent Auto 1.6 % (0-4); Hematocrit 36.4 % (37.0-47.0); Hemoglobin 10.8 g/dl (12.0-16.0); Imm Gran Abs Auto 0.03 X10*3/uL (0.00-0.03); Imm Gran Pct Auto 0.3 % (0.0-0.4); Lymphocytes Absolute Auto 2.4 X10*3/uL (1.2-4.9); Lymphocytes Percent Auto 26.5 % (20-40); Mean Corpuscular HGB Conc 29.7 g/dl (31.0-35.0); Mean Corpuscular Hemoglobin 23.5 pg (27.0-33.0); Mean Corpuscular Volume 79.3 fL (80.0-98.0); Mean Platelet Volume 11.7 fL (9.4-12.3); Monocytes Absolute Auto 0.4 X10*3/uL (0.1-1.2); Monocytes Percent Auto 4.7 % (2-11); Neutrophils Absolute Auto 6.1 x10*3/uL (2.0-8.3); Neutrophils Percent Auto 66.5 % (45-73); Platelet Count 246 X10*3/uL (160-400); Red Blood Count 4.59 X10*6/uL (4.20-5.50); White Blood Count 9.2 X10*3/uL (4.8-10.8)
[2022-03-09 12:25] LABS: INTERNATIONAL NORM RATIO 1.1 (0.9-1.1); Prothrombin Time 12.6 SEC (10.0-13.1)
[2022-03-09 12:28] LABS: Partial Thromboplastin Time 29.3 SEC (26.0-36.4)
[2022-03-09 12:35] LABS: Lactic Acid 1.7 mmol/L (0.5-2.0)
[2022-03-09 12:38] LABS: Anion Gap 15 (12-20); Blood Urea Nitrogen 11 mg/dL (9-16); Calcium 8.8 mg/dL (8.4-10.2); Carbon Dioxide 24 mmol/L (22-29); Chloride 104 mmol/L (96-108); Creatinine Clr Calc Pharmacy 73.5; Estimated Glomerular Filt Rate > 60; Glucose Random 266 mg/dL (60-115); Magnesium 1.7 mg/dL (1.6-2.6); Potassium 4.3 mmol/L (3.3-5.1); Sodium 139 mmol/L (135-145)
[2022-03-09 12:39] LABS: Alanine Aminotransferase 9 U/L (0-31); Albumin Level 3.9 g/dL (3.5-5.0); Alkaline Phosphatase 95 U/L (39-117); Aspartate Amino Transferase 10 U/L (5-31); Bilirubin Direct 0.2 mg/dL (0.0-0.5); Bilirubin Total 0.4 mg/dL (0.0-1.0); Lipase 8 U/L (8-78); Total Protein 6.8 g/dL (6.5-8.0)
[2022-03-09 12:42] LABS: B Type Natriuretic Peptide 800 pg/mL (<100); Troponin-I High Sensitivity 11.2 ng/L (<3.5-17.0)
[2022-03-09 12:44] LABS: Venous Blood Gas Refer to POC result
[2022-03-09 12:44] LABS: VBG Base Excess 1.1 mmol/L; VBG HCO3 27 mmol/L (22-26); VBG pCO2 54 mmHg; VBG pH 7.31 (7.32-7.43); VBG pO2 48 mmHg
[2022-03-09 13:15] LABS: COVID-19 Test Negative (Negative); IDNOW Serial# 55D5AD1C
[2022-03-09 13:18] LABS: D Dimer High Sensitivity 272 NG/ML
[2022-03-09] MEDS: Albuterol Sulfate 2.5 MG, Albuterol Sulfate (0.083%) 2.5 MG 5 MG INHALE (14:07)
[2022-03-09 14:09] LABS: Venous Blood Gas Refer to POC result
[2022-03-09 14:10] LABS: VBG Base Excess 0.8 mmol/L; VBG HCO3 27 mmol/L (22-26); VBG pCO2 54 mmHg; VBG pH 7.31 (7.32-7.43); VBG pO2 47 mmHg
--- NOTE | 2022-03-09 14:12 | PHA.MEDREC ---
Pharmacy Consult ? Medication Reconciliation Pharmacy has completed the medication reconciliation. Patient does not recognize all the medications names but she has too many. Claim history is all uptodate. Reports that she is no longer taking oxycodone. Kandice Bruno, ShantanuD
[2022-03-09] MEDS: Furosemide 40 MG/4 ML VIAL IVPUSH (14:26)
[2022-03-09 14:52] LABS: Troponin-I High Sensitivity 20.4 ng/L (<3.5-17.0)
[2022-03-09 15:12] LABS: Appearance Urine Clear; Color Urine Yellow; Glucose Urine UA 100 mg/dL (Negative); Leukocyte Esterase Urine Negative (Negative); Nitrite Urine Negative (Negative); PH 5.5 (5.0-9.0); Specific Gravity - Urine <= 1.005 (1.005-1.025); UMIC TRIGGER UACC YES; Urine Blood Negative (Negative); Urine Ketones Negative (Negative); Urine Protein 30 (1+) mg/dL (Neg-Trace)
[2022-03-09 15:26] LABS: Amphetamine Screen Urine Not Detected (Not Detect); Barbiturates, Urine Not Detected (Not Detect); Benzodiazepines Screen Urine Not Detected (Not Detect); Cannabinoid Screen Urine Not Detected (Not Detect); Cocaine Screen Urine Not Detected (Not Detect); Fentanyl, urine Not Detected (Not Detect); Opiate Screen Urine Not Detected (Not Detect); Phencyclidine Screen Urine Not Detected (Not Detect)
[2022-03-09 15:28] LABS: Bacteria Urine None Seen (None Seen); Hyaline Casts Urine 0-2 /LPF (0-2); RBC Urine 0-2 /HPF (0-2); Squamous Epithelial Cell Urine 0-2 /HPF (0-2); WBC Urine 0-5 /HPF (0-5)
[2022-03-09] MEDS: iohexoL 350 MG/ML 100 ML INFUS..BTL IV (15:34)
[2022-03-09] MEDS: Albuterol Sulfate (0.083%) 2.5 MG/3 ML VIAL.NEB INHALE (15:47)
== END 2022-03-09 16:44 | disposition left against medical advice (07) ==
PROVIDERS: Emergency Provider Emergency Medicine
DX: J44.1 Chronic obstructive pulmonary disease with (acute) exacerbation (principal); R06.03 Acute respiratory distress; R06.02 Shortness of breath; Z20.822 Contact with and (suspected) exposure to COVID-19; E11.9 Type 2 diabetes mellitus without complications; I10 Essential (primary) hypertension; F17.210 Nicotine dependence, cigarettes, uncomplicated; Z79.82 Long term (current) use of aspirin; Z79.02 Long term (current) use of antithrombotics/antiplatelets; Z79.899 Other long term (current) drug therapy; Z79.84 Long term (current) use of oral hypoglycemic drugs
CPT/HCPCS: 36415; 71045; 71275; 80048; 80076; 80307; 81001; 82803; 83605; 83690; 83735; 83880; 84484; 85025; 85379; 85610; 85730; 87040; 87635; 93005; 94640; 94660; 96365; 96366; 96375; 99284; J1940; J1956; J2930; J3475; Q9967

== ENCOUNTER 2022-03-15 04:18 | Emergency (ER) | payer MEDICAID, SELFPAY ==
--- NOTE | ~2022-03-15 | XR_ITS ---
EXAMINATION: XR CHEST CLINICAL INFORMATION: Shortness of breath COMPARISON: 12/07/2021 TECHNIQUE: Frontal view of the chest was obtained. FINDINGS: Lung volumes are symmetric. No focal consolidation is seen. No evidence of pneumothorax, significant pleural effusion, or overt pulmonary edema. Cardiac size is within normal limits. Calcification is present at the aortic arch. No acute osseous findings are seen. XR/XR chest 1V IMPRESSION: No acute cardiopulmonary findings.
--- NOTE | 2022-03-15 04:25 | ECG_ITS ---
Test Reason : SOB Blood Pressure : / mmHG Vent. Rate : 114 BPM Atrial Rate : 114 BPM P-R Int : 136 ms QRS Dur : 084 ms QT Int : 356 ms P-R-T Axes : 077 049 102 degrees QTc Int : 490 ms Sinus tachycardia Nonspecific ST and T wave abnormality Anterior infarct , age undetermined Abnormal ECG When compared with ECG of 09-MAR-2022 12:50, T wave amplitude has increased in Anterior leads Referred By: Maty Coffey Electronically Signed By:JARRED BARRETO
--- NOTE | 2022-03-15 04:27 | ED_ITS ---
HPI - SOB/Dyspnea General Chief Complaint: Dyspnea Stated Complaint: copd exacerbation Time Seen by Provider: 03/15/22 04:25 Source: patient and EMS Mode of arrival: EMS Limitations: no limitations History of Present Illness HPI Narrative: A 51-year-old female came in for evaluation of shortness of breath. Patient is a long history smoking and history of COPD/asthma presented today with shortness of breath that has been worsening since yesterday, cough was white sputum production, no fever, no chills, patient had similar episode like today's several time in the past require hospitalization for COPD exacerbation, patient to not use supplemental oxygen at home, patient normally use her bronchodilator and just finished a course of steroid yesterday. Patient is diabetic control her diabetes with glucose of her gym and insulin patient was instructed to hold her diabetes medication for 3 days after having C T angiogram 3 days ago. Related Data Home Medications Medication Instructions Recorded Confirmed albuterol sulfate 90 mcg/actuation 2 puff PO Q4H PRN wheezing 12/24/20 03/09/22 aerosol inhaler (ProAir HFA) aspirin 81 mg tablet,delayed 1 tab PO DAILY 12/24/20 03/09/22 release atorvastatin 10 mg tablet 1 tab PO DAILY 12/24/20 03/09/22 fluticasone propionate 115 2 puff inhalation BID 12/24/20 03/09/22 mcg-salmeterol 21 mcg/actuation HFA inhaler (Advair HFA) glipizide 5 mg-metformin 500 mg 2 tab PO BID 12/24/20 03/09/22 tablet albuterol sulfate 2.5 mg/3 mL 2.5 mg inhalation Q4H PRN 07/11/21 03/09/22 (0.083 %) solution for nebulization Respiratory Distress insulin glargine 100 unit/mL (3 12 unit subcut BEDTIME 10/31/21 03/09/22 mL) subcutaneous pen (Lantus Solostar U-100 Insulin) lisinopril 20 1 tab PO DAILY 10/31/21 03/09/22 mg-hydrochlorothiazide 12.5 mg tablet umeclidinium 62.5 mcg/actuation 1 puff PO DAILY 10/31/21 03/09/22 blister powder for inhalation (Incruse Ellipta) montelukast 10 mg tablet 1 tab PO BEDTIME 02/13/22 03/09/22 Previous Rx's Medication Instructions Recorded amlodipine 10 mg tablet 10 mg PO DAILY 30 days #30 tabs 12/27/20 gabapentin 300 mg capsule 600 mg PO BEDTIME #20 caps 11/21/21 azithromycin 250 mg tablet See Rx Instructions PO .COMPLEX #6 03/09/22 tabs furosemide 20 mg tablet (Lasix) 20 mg PO DAILY 3 days #3 tabs 03/09/22 potassium chloride 20 mEq 20 meq PO DAILY 5 days #5 tabs 03/09/22 tablet,extended release prednisone 20 mg tablet 40 mg PO DAILY 5 days #10 tabs 03/09/22 albuterol sulfate 2.5 mg/3 mL 2.5 mg (3 mL) inhalation QID PRN 03/15/22 (0.083 %) solution for nebulization bronchospasm #90 mL prednisone 20 mg tablet 20 mg PO BID #8 tabs 03/15/22 Allergies Allergy/AdvReac Type Severity Reaction Status Date / Time Penicillins [PENICILLINS] Allergy Severe RASH Verified 02/14/22 07:59 amoxicillin [AMOXICILLIN] Allergy Intermediate HIVES Verified 02/11/22 15:09 Review of Systems Review of Systems: All other systems are reviewed and are negative Constitutional: Reports as per HPI and Reports no additional constitutional complaints Eyes: Reports as per HPI and Reports no additional eye complaints Reports system reviewed and no additional complaints, except as documented Cardiovascular: Reports as per HPI and Reports no additional cardiovascular complaints Respiratory: Reports as per HPI and Reports no additional respiratory complaints Gastrointestinal: Reports as per HPI and Reports no additional gastrointestinal complaints Genitourinary: Reports no additional female genitourinary complaints Musculoskeletal: Reports no additional musculoskeletal complaints Skin/Breast: Reports system reviewed and no additional complaints, except as docu Psychiatric: Reports no additional psychiatric complaints Endocrine: Reports no additional endocrine complaints Hematologic/Lymphatic: Reports no additional hematologic/lymphatic complaints Allergic/Immunologic: Reports no additional allergic/immunologic complaints Reports system reviewed and no additional complaints, except as documented and Reports Abnormal speech present [facility] Past Medical History Medical History Asthma Atherosclerotic cardiovascular disease Atrial tachycardia COPD (chronic obstructive pulmonary disease) COVID-19 vaccine series completed Diabetes Diabetic toe ulcer Essential hypertension GERD (gastroesophageal reflux disease) Hypertension Osteomyelitis Surgical History History of esophagogastroduodenoscopy (EGD) History of toe surgery (09/22/21) Family History Family History Mother Hx of CABG Sister CAD (coronary artery disease) Social History Social History Household Members: Family Housing: Apartment Do you presently have visiting nurse or other home services: Yes Alcohol intake: never Patient Tobacco Use Status: Current everyday Tobacco user Tobacco use type: Cigarette Cigarettes Per Day: 1 Years Smoked: 43 e-Cigarette/Vaping Use: Never Used Second Hand Smoke Exposure: Yes Advance Directives: Yes Advance Directives on File: Yes Advance Directives Date on File: 12/28/20 service: No Current occupational status: unemployed Physical Exam 2 Vital Signs: Vital Signs: Last Vital Signs Temp 97.9 F 03/15/22 06:09 Pulse 110 H 03/15/22 06:09 Resp 12 03/15/22 06:09 BP 173/93 H 03/15/22 06:09 Pulse Ox 97 03/15/22 05:02 O2 Del Method 03/15/22 06:09 O2 Flow Rate 3 03/15/22 06:09 Oxygen Flow Rate 3 03/15/22 05:02 BMI result Body Mass Index 29.3 Vital signs have been reviewed as appeared to be correct. Blood pressure normal. Heart rate normal. Respiration rate normal. Temperature normal. Oxygen saturation normal. Appearance: Alert. Oriented X3. acute respiratory distress. Head: Normal external exam. Normocephalic. Atraumatic. No Witt signs noted. No raccoon eyes noted Eyes: PERRLA. EOMI. Conjunctiva and sclera normal. Eyelids normal. ENT: TM's Normal. Pharynx normal. Uvula midline. Moist mucous membranes. No trismus noted. No drooling noted. No muffled voice noted. Neck: Normal inspection. Neck supple. FROM. No adenopathy. Thyroid Normal. No meningeal signs. No neck mass noted. CVS: Normal heart rate and rhythm. Heart sound normal. No murmurs noted. Pulses normal throughout. Respiratory: Mild acute respiratory distress. Painless inspiration. Breath sounds normal. No wheezes/rales/rhonchi noted. Chest nontender. No accessory muscle usage noted or decreased air movement noted. Abdomen: Soft and nontender. Bowel sounds normal in all 4 quadrants. No distention noted. No organomegaly noted. No visible injury noted. Back: No CVA tenderness. Full range of motion noted. Skin: Skin warm and dry. Normal skin color. Normal skin turgor. No rashes/lesions/lacerations noted. Extremities: No lower extremity edema. Extremities exhibit normal range of motion. Extremities nontender. Neuro: Oriented X 3. Cranial nerve exam: II-XII are grossly intact No motor deficit. No sensory deficit. Reflexes normal. Course Course Course Narrative: 51-year-old female with history of COPD and long history of active smoking came in with COPD exacerbation, patient also found to be very hyperglycemic because she is not taking her diabetic medication, patient has also elevated troponin, felt better after Solu-Medrol and magnesium and bronchodilator. Patient decline chest pain, hyperglycemia due to not taking her medication at home was partially treated in the emergency department. I felt that hospitalization is a medical necessity for patient's condition, patient is declining the admission patient is awake, alert, oriented x3, risk of leaving with all the abnormal findings as a consequence is of leaving against medical advise was discussed with the patient who is insisting to go home. Patient is requesting prescription for few days of prednisone and albuterol for the machine to use at home. Will discharge AMA. MDM - SOB/Dyspnea Lab Data Attestation: I reviewed the patient's lab results. Result diagrams: 03/15/22 04:39 03/15/22 04:39 Labs: Lab Results 03/15/22 03/15/22 03/15/22 Range/Units 04:39 04:39 04:39 WBC 9.7 (4.8-10.8) X10*3/uL RBC 4.52 (4.20-5.50) X10*6/uL Hgb 10.6 L (12.0-16.0) g/dl Hct 36.3 L (37.0-47.0) % MCV 80.3 (80.0-98.0) fL MCH 23.5 L (27.0-33.0) pg MCHC 29.2 L (31.0-35.0) g/dl RDW 16.3 H (11.0-16.0) % Plt Count 154 L D (160-400) X10*3/uL MPV 11.4 (9.4-12.3) fL Immature Gran % (Auto) 0.6 H (0.0-0.4) % Neut % (Auto) 91.3 H (45-73) % Lymph % (Auto) 6.5 L (20-40) % [place] % (Auto) 1.4 L (2-11) % Eos % (Auto) 0.1 (0-4) % Baso % (Auto) 0.1 (0-2) % Lymph # (Auto) 0.6 L (1.2-4.9) X10*3/uL [place] # (Auto) 0.1 (0.1-1.2) X10*3/uL Eos # (Auto) 0.0 (0.0-0.4) X10*3/uL Baso # (Auto) 0.0 (0.0-0.2) X10*3/uL Abs Immat Gran (auto) 0.06 H (0.00-0.03) X10*3/uL Absolute Neuts (auto) 8.9 H (2.0-8.3) x10*3/uL Absolute Nucleated RBC 0.000 (0.0-0.012) X10*3/uL Nucleated RBC % (auto) 0.0 (0.0-0.2) /100WBC Smear Tech's Comments VERIFIED Sodium 129 L (135-145) mmol/L Potassium 4.3 (3.3-5.1) mmol/L Chloride 93 L (96-108) mmol/L Carbon Dioxide 24 (22-29) mmol/L Anion Gap 16 (12-20) BUN 16 (9-16) mg/dL Creatinine 1.41 H (0.5-1.4) mg/dL Estim Creat Clear Calc 46.3 Estimated GFR 39 POC Glucose (60-115) mg/dL Random Glucose 862 H* D (60-115) mg/dL Lactic Acid 3.7 H* (0.5-2.0) mmol/L Calcium 8.4 (8.4-10.2) mg/dL Total Bilirubin 0.2 (0.0-1.0) mg/dL Direct Bilirubin < 0.2 (0.0-0.5) mg/dL AST 7 (5-31) U/L ALT 13 (0-31) U/L Alkaline Phosphatase 90 (39-117) U/L Troponin I High Sens (<3.5-17.0) ng/L B-Natriuretic Peptide (<100) pg/mL Total Protein 6.3 L (6.5-8.0) g/dL Albumin 3.8 (3.5-5.0) g/dL Lipase 11 (8-78) U/L Urine Color Urine Appearance Urine pH (5.0-9.0) Ur Specific [place] (1.005-1.025) Urine Protein (Neg-Trace) mg/dL Urine Glucose (UA) (Negative) mg/dL Urine Ketones (Negative) mg/dL Urine Blood (Negative) Urine Nitrite (Negative) Ur Leukocyte Esterase (Negative) Urine RBC (0-2) /HPF Urine WBC (0-5) /HPF Ur Squamous Epith Cells (0-2) /HPF Urine Bacteria (None Seen) Hyaline Casts (0-2) /LPF Influenza Type A (PCR) (Negative) Influenza Type B (PCR) (Negative) RSV RNA Qual (PCR) (Negative) SARS-CoV-2 RNA (RT-PCR) (Negative) 03/15/22 03/15/22 03/15/22 Range/Units 04:39 04:39 05:22 WBC (4.8-10.8) X10*3/uL RBC (4.20-5.50) X10*6/uL Hgb (12.0-16.0) g/dl Hct (37.0-47.0) % MCV (80.0-98.0) fL MCH (27.0-33.0) pg MCHC (31.0-35.0) g/dl RDW (11.0-16.0) % Plt Count (160-400) X10*3/uL MPV (9.4-12.3) fL Immature Gran % (Auto) (0.0-0.4) % Neut % (Auto) (45-73) % Lymph % (Auto) (20-40) % [place] % (Auto) (2-11) % Eos % (Auto) (0-4) % Baso % (Auto) (0-2) % Lymph # (Auto) (1.2-4.9) X10*3/uL [place] # (Auto) (0.1-1.2) X10*3/uL Eos # (Auto) (0.0-0.4) X10*3/uL Baso # (Auto) (0.0-0.2) X10*3/uL Abs Immat Gran (auto) (0.00-0.03) X10*3/uL Absolute Neuts (auto) (2.0-8.3) x10*3/uL Absolute Nucleated RBC (0.0-0.012) X10*3/uL Nucleated RBC % (auto) (0.0-0.2) /100WBC Smear Tech's Comments Sodium (135-145) mmol/L Potassium (3.3-5.1) mmol/L Chloride (96-108) mmol/L Carbon Dioxide (22-29) mmol/L Anion Gap (12-20) BUN (9-16) mg/dL Creatinine (0.5-1.4) mg/dL Estim Creat Clear Calc Estimated GFR POC Glucose (60-115) mg/dL Random Glucose (60-115) mg/dL Lactic Acid (0.5-2.0) mmol/L Calcium (8.4-10.2) mg/dL Total Bilirubin (0.0-1.0) mg/dL Direct Bilirubin (0.0-0.5) mg/dL AST (5-31) U/L ALT (0-31) U/L Alkaline Phosphatase (39-117) U/L Troponin I High Sens 238.4 H* D (<3.5-17.0) ng/L B-Natriuretic Peptide 997 H (<100) pg/mL Total Protein (6.5-8.0) g/dL Albumin (3.5-5.0) g/dL Lipase (8-78) U/L Urine Color Yellow Urine Appearance Clear Urine pH 5.5 (5.0-9.0) Ur Specific [place] >= 1.030 H (1.005-1.025) Urine Protein 30 (1+) H (Neg-Trace) mg/dL Urine Glucose (UA) >=1000 H (Negative) mg/dL Urine Ketones Negative (Negative) mg/dL Urine Blood Negative (Negative) Urine Nitrite Negative (Negative) Ur Leukocyte Esterase Negative (Negative) Urine RBC 3-5 H (0-2) /HPF Urine WBC 0-5 (0-5) /HPF Ur Squamous Epith Cells 0-2 (0-2) /HPF Urine Bacteria None Seen (None Seen) Hyaline Casts 0-2 (0-2) /LPF Influenza Type A (PCR) NEGATIVE (Negative) Influenza Type B (PCR) NEGATIVE (Negative) RSV RNA Qual (PCR) NEGATIVE (Negative) SARS-CoV-2 RNA (RT-PCR) NEGATIVE (Negative) 03/15/22 Range/Units 06:12 WBC (4.8-10.8) X10*3/uL RBC (4.20-5.50) X10*6/uL Hgb (12.0-16.0) g/dl Hct (37.0-47.0) % MCV (80.0-98.0) fL MCH (27.0-33.0) pg MCHC (31.0-35.0) g/dl RDW (11.0-16.0) % Plt Count (160-400) X10*3/uL MPV (9.4-12.3) fL Immature Gran % (Auto) (0.0-0.4) % Neut % (Auto) (45-73) % Lymph % (Auto) (20-40) % [place] % (Auto) (2-11) % Eos % (Auto) (0-4) % Baso % (Auto) (0-2) % Lymph # (Auto) (1.2-4.9) X10*3/uL [place] # (Auto) (0.1-1.2) X10*3/uL Eos # (Auto) (0.0-0.4) X10*3/uL Baso # (Auto) (0.0-0.2) X10*3/uL Abs Immat Gran (auto) (0.00-0.03) X10*3/uL Absolute Neuts (auto) (2.0-8.3) x10*3/uL Absolute Nucleated RBC (0.0-0.012) X10*3/uL Nucleated RBC % (auto) (0.0-0.2) /100WBC Smear Tech's Comments Sodium (135-145) mmol/L Potassium (3.3-5.1) mmol/L Chloride (96-108) mmol/L Carbon Dioxide (22-29) mmol/L Anion Gap (12-20) BUN (9-16) mg/dL Creatinine (0.5-1.4) mg/dL Estim Creat Clear Calc Estimated GFR POC Glucose 577 H* (60-115) mg/dL Random Glucose (60-115) mg/dL Lactic Acid (0.5-2.0) mmol/L Calcium (8.4-10.2) mg/dL Total Bilirubin (0.0-1.0) mg/dL Direct Bilirubin (0.0-0.5) mg/dL AST (5-31) U/L ALT (0-31) U/L Alkaline Phosphatase (39-117) U/L Troponin I High Sens (<3.5-17.0) ng/L B-Natriuretic Peptide (<100) pg/mL Total Protein (6.5-8.0) g/dL Albumin (3.5-5.0) g/dL Lipase (8-78) U/L Urine Color Urine Appearance Urine pH (5.0-9.0) Ur Specific [place] (1.005-1.025) Urine Protein (Neg-Trace) mg/dL Urine Glucose (UA) (Negative) mg/dL Urine Ketones (Negative) mg/dL Urine Blood (Negative) Urine Nitrite (Negative) Ur Leukocyte Esterase (Negative) Urine RBC (0-2) /HPF Urine WBC (0-5) /HPF Ur Squamous Epith Cells (0-2) /HPF Urine Bacteria (None Seen) Hyaline Casts (0-2) /LPF Influenza Type A (PCR) (Negative) Influenza Type B (PCR) (Negative) RSV RNA Qual (PCR) (Negative) SARS-CoV-2 RNA (RT-PCR) (Negative) Imaging Data Chest x-ray: Attestation: I personally reviewed and interpreted this imaging study as follows: Radiologist's impression: No acute pathology. ECG Data Attestation: I personally reviewed and interpreted this ECG as follows: Interpretation: Sinus tachycardia at 114 beats per minutes, normal axis deviation, normal intervals, no changes from old EKG. Discharge Plan Discharge Clinical Impression: COPD (chronic obstructive pulmonary disease), Non-ST elevation [place] (NSTEMI), Hyperglycemia Patient Disposition: Left Against Medical Advice Additional Instructions: Seek immediate medical attention if any chest pain or shortness of breath. Prescriptions: New prednisone 20 mg tablet 20 mg PO BID Qty: 8 0RF albuterol sulfate 2.5 mg /3 mL (0.083 %) solution for nebulization 2.5 mg inhalation QID PRN (Reason: bronchospasm) Qty: 90 0RF No Action atorvastatin 10 mg tablet 1 tab PO DAILY aspirin 81 mg tablet,delayed release (DR/EC) 1 tab PO DAILY albuterol sulfate [ProAir HFA] 90 mcg/actuation HFA aerosol inhaler 2 puff PO Q4H PRN (Reason: wheezing) glipizide-metformin 5-500 mg tablet 2 tab PO BID Advair HFA 115-21 mcg/actuation HFA aerosol inhaler 2 puff inhalation BID amlodipine 10 mg Tablet 10 mg PO DAILY 30 Days Qty: 30 0RF Protocol: Hold for SBP< HOLD for SBP < : 90 lisinopril-hydrochlorothiazide 20-12.5 mg tablet 1 tab PO DAILY insulin glargine [Lantus Solostar U-100 Insulin] 100 unit/mL (3 mL) insulin p en 12 unit subcut BEDTIME Incruse Ellipta 62.5 mcg/actuation blister with device 1 puff PO DAILY montelukast 10 mg tablet 1 tab PO BEDTIME azithromycin 250 mg tablet See Rx Instructions .ROUTE .COMPLEX Qty: 6 0RF Rx Instructions: For 250 mg dose pack: take 500 mg today (day 1), then 250 mg for 4 days (days 2-5) prednisone 20 mg tablet 40 mg PO DAILY 5 Days Qty: 10 0RF furosemide [Lasix] 20 mg tablet 20 mg PO DAILY 3 Days Qty: 3 0RF Rx Instructions: start on 03/10 potassium chloride 20 mEq tablet extended release 20 meq PO DAILY 5 Days Qty: 5 0RF albuterol sulfate 2.5 mg /3 mL (0.083 %) Solution For Nebulization 2.5 mg INHALATION Q4H PRN (Reason: Respiratory Distress) gabapentin 300 mg Capsule 600 mg PO BEDTIME Qty: 20 0RF Referrals: Physician,Nonstaff [Primary Care Provider] -
[2022-03-15 04:44] LABS: Basophils Percent Auto 0.1 % (0-2); Eosinophils Percent Auto 0.1 % (0-4); Hematocrit 36.3 % (37.0-47.0); Hemoglobin 10.6 g/dl (12.0-16.0); Imm Gran Abs Auto 0.06 X10*3/uL (0.00-0.03); Imm Gran Pct Auto 0.6 % (0.0-0.4); Lymphocytes Absolute Auto 0.6 X10*3/uL (1.2-4.9); Lymphocytes Percent Auto 6.5 % (20-40); MANUAL DIFF FLAG SCAN; Mean Corpuscular HGB Conc 29.2 g/dl (31.0-35.0); Mean Corpuscular Hemoglobin 23.5 pg (27.0-33.0); Mean Corpuscular Volume 80.3 fL (80.0-98.0); Mean Platelet Volume 11.4 fL (9.4-12.3); Monocytes Absolute Auto 0.1 X10*3/uL (0.1-1.2); Monocytes Percent Auto 1.4 % (2-11); Neutrophils Absolute Auto 8.9 x10*3/uL (2.0-8.3); Neutrophils Percent Auto 91.3 % (45-73); Platelet Count 154 X10*3/uL (160-400); Red Blood Count 4.52 X10*6/uL (4.20-5.50); Red Cell Distribution Width 16.3 % (11.0-16.0); SCAN SMEAR FLAG 1; White Blood Count 9.7 X10*3/uL (4.8-10.8)
[2022-03-15] MEDS: methylPREDNISolone Sod Succ 125 MG/2 ML VIAL IVPUSH (04:50)
[2022-03-15] MEDS: Magnesium Sulfate/H2O 2 GM/50 ML PIGGYBACK IV (04:50)
[2022-03-15 05:02] VITALS: BP 131/83; BP 160/80; PULSE 107; PULSE 112; RESP 16; TEMP 36.7; O2SAT 96; O2SAT 97; BMI 29.3
[2022-03-15 05:08] LABS: Alanine Aminotransferase 13 U/L (0-31); Albumin Level 3.8 g/dL (3.5-5.0); Alkaline Phosphatase 90 U/L (39-117); Anion Gap 16 (12-20); Aspartate Amino Transferase 7 U/L (5-31); Bilirubin Direct < 0.2 mg/dL (0.0-0.5); Bilirubin Total 0.2 mg/dL (0.0-1.0); Blood Urea Nitrogen 16 mg/dL (9-16); Calcium 8.4 mg/dL (8.4-10.2); Carbon Dioxide 24 mmol/L (22-29); Chloride 93 mmol/L (96-108); Creatinine Clr Calc Pharmacy 46.3; Estimated Glomerular Filt Rate 39; Lipase 11 U/L (8-78); Potassium 4.3 mmol/L (3.3-5.1); SLIDE REVIEW VERIFIED; Sodium 129 mmol/L (135-145); Total Protein 6.3 g/dL (6.5-8.0)
[2022-03-15 05:12] LABS: B Type Natriuretic Peptide 997 pg/mL (<100); Lactic Acid 3.7 mmol/L (0.5-2.0); Troponin-I High Sensitivity 238.4 ng/L (<3.5-17.0)
[2022-03-15 05:22] LABS: Glucose Random 862 mg/dL (60-115)
[2022-03-15 05:27] LABS: Influenza A PCR NEGATIVE (Negative); Influenza B PCR NEGATIVE (Negative); Resp Syncy Virus RNA Qual PCR NEGATIVE (Negative); SARS COV2 PCR INHOUSE NEGATIVE (Negative)
[2022-03-15 05:29] LABS: Appearance Urine Clear; Color Urine Yellow; Glucose Urine UA >=1000 mg/dL (Negative); Leukocyte Esterase Urine Negative (Negative); Nitrite Urine Negative (Negative); PH 5.5 (5.0-9.0); Specific Gravity - Urine >= 1.030 (1.005-1.025); UMIC TRIGGER UACC YES; Urine Blood Negative (Negative); Urine Ketones Negative (Negative); Urine Protein 30 (1+) mg/dL (Neg-Trace)
[2022-03-15] MEDS: 0.9 % Sodium Chloride 1,000 ML 999 ML IV (05:29)
[2022-03-15 05:34] LABS: Bacteria Urine None Seen (None Seen); Hyaline Casts Urine 0-2 /LPF (0-2); Squamous Epithelial Cell Urine 0-2 /HPF (0-2); WBC Urine 0-5 /HPF (0-5)
[2022-03-15] MEDS: Insulin Regular, Human 100 UNIT/ML 3 ML VIAL 10 UNIT IVPUSH (05:34)
[2022-03-15] MEDS: Albuterol Sulfate (0.083%) 2.5 MG/3 ML VIAL.NEB 7.5 MG INHALE (05:49)
[2022-03-15] MEDS: Albuterol/Iprat 2.5/0.5MG 3 ML AMPUL.NEB INHALE (05:49)
[2022-03-15 06:09] VITALS: BP 173/93; PULSE 110; RESP 12; TEMP 36.6
[2022-03-15 06:17] LABS: Glucose, Whole Blood 577 mg/dL (60-115)
[2022-03-15 06:43] LABS: Reflex Lactate? Lactic Acid Added
== END 2022-03-15 08:17 | disposition left against medical advice (07) ==
PROVIDERS: Emergency Provider Emergency Medicine
DX: J44.1 Chronic obstructive pulmonary disease with (acute) exacerbation (principal); I21.4 Non-ST elevation (NSTEMI) myocardial infarction; R06.02 Shortness of breath; E11.65 Type 2 diabetes mellitus with hyperglycemia; Z20.822 Contact with and (suspected) exposure to COVID-19; Z79.899 Other long term (current) drug therapy; F17.210 Nicotine dependence, cigarettes, uncomplicated; Z71.6 Tobacco abuse counseling
CPT/HCPCS: 0241U; 71045; 80048; 80076; 81001; 82947; 83605; 83690; 83880; 84484; 85025; 87040; 93005; 96374; 96375; 99284; J2930; J3475

== ENCOUNTER 2022-03-16 22:46 | Emergency (ER) | payer MEDICAID, SELFPAY ==
--- NOTE | ~2022-03-16 | XR_ITS ---
EXAMINATION: XR CHEST CLINICAL INFORMATION: COPD COMPARISON: Chest x-ray 03/15/2022 TECHNIQUE: Frontal portable view of the chest was obtained. 10:58 PM FINDINGS: No significant abnormality is noted involving the heart, lungs, mediastinum, bony thorax or soft tissues. XR/XR chest 1V IMPRESSION: Unremarkable examination.
[2022-03-16 22:56] VITALS: BP 147/76; BP 170/60; PULSE 120; PULSE 122; RESP 29; TEMP 36.9; O2SAT 100; O2SAT 96; BMI 27.2
--- NOTE | 2022-03-16 22:56 | ECG_ITS ---
Test Reason : sob Blood Pressure : / mmHG Vent. Rate : 126 BPM Atrial Rate : 126 BPM P-R Int : 128 ms QRS Dur : 084 ms QT Int : 330 ms P-R-T Axes : 081 054 044 degrees QTc Int : 477 ms Sinus tachycardia Nonspecific ST and T wave abnormality Possible Anterior infarct (cited on or before 15-MAR-2022) Abnormal ECG When compared with ECG of 15-MAR-2022 04:39, No significant change was found Referred By: Anna Vela Electronically Signed By:JARRED BARRETO
--- NOTE | 2022-03-16 22:59 | ED.SOB ---
HPI - SOB/Dyspnea General Chief Complaint: Upper Respiratory Symptoms Stated Complaint: sob Time Seen by Provider: 03/16/22 22:53 Source: patient and EMS Mode of arrival: EMS Limitations: other (Short of breath) History of Present Illness HPI Narrative: Patient comes to the emergency room complaining of shortness of breath. Patient was seen yesterday here in the hospital. Patient was treated for COPD. Patient was advised to stay in the hospital and be admitted for COPD. Patient left from the ED against medical advice. Today, patient returns with worsening symptoms. EMS reports that they gave her nebulization treatment. No steroids yet. Related Data Home Medications Medication Instructions Recorded Confirmed albuterol sulfate 90 mcg/actuation 2 puff PO Q4H PRN wheezing 12/24/20 03/09/22 aerosol inhaler (ProAir HFA) aspirin 81 mg tablet,delayed 1 tab PO DAILY 12/24/20 03/09/22 release atorvastatin 10 mg tablet 1 tab PO DAILY 12/24/20 03/09/22 fluticasone propionate 115 2 puff inhalation BID 12/24/20 03/09/22 mcg-salmeterol 21 mcg/actuation HFA inhaler (Advair HFA) glipizide 5 mg-metformin 500 mg 2 tab PO BID 12/24/20 03/09/22 tablet albuterol sulfate 2.5 mg/3 mL 2.5 mg inhalation Q4H PRN 07/11/21 03/09/22 (0.083 %) solution for nebulization Respiratory Distress insulin glargine 100 unit/mL (3 12 unit subcut BEDTIME 10/31/21 03/09/22 mL) subcutaneous pen (Lantus Solostar U-100 Insulin) lisinopril 20 1 tab PO DAILY 10/31/21 03/09/22 mg-hydrochlorothiazide 12.5 mg tablet umeclidinium 62.5 mcg/actuation 1 puff PO DAILY 10/31/21 03/09/22 blister powder for inhalation (Incruse Ellipta) montelukast 10 mg tablet 1 tab PO BEDTIME 02/13/22 03/09/22 Previous Rx's Medication Instructions Recorded amlodipine 10 mg tablet 10 mg PO DAILY 30 days #30 tabs 12/27/20 gabapentin 300 mg capsule 600 mg PO BEDTIME #20 caps 11/21/21 azithromycin 250 mg tablet See Rx Instructions PO .COMPLEX #6 03/09/22 tabs furosemide 20 mg tablet (Lasix) 20 mg PO DAILY 3 days #3 tabs 03/09/22 potassium chloride 20 mEq 20 meq PO DAILY 5 days #5 tabs 03/09/22 tablet,extended release prednisone 20 mg tablet 40 mg PO DAILY 5 days #10 tabs 03/09/22 albuterol sulfate 2.5 mg/3 mL 2.5 mg (3 mL) inhalation QID PRN 03/15/22 (0.083 %) solution for nebulization bronchospasm #90 mL prednisone 20 mg tablet 20 mg PO BID #8 tabs 03/15/22 Allergies Allergy/AdvReac Type Severity Reaction Status Date / Time Penicillins [PENICILLINS] Allergy Severe RASH Verified 02/14/22 07:59 amoxicillin [AMOXICILLIN] Allergy Intermediate HIVES Verified 02/11/22 15:09 Review of Systems Review of Systems: Constitutional : No Weight loss, No Fever, No Chills, No Night Sweats, No Fatigue, No Malaise ENT/Mouth : No Hearing loss, No Ear Pain, No Nasal Congestion, No Sinus Pain, No Hoarseness, No sore throat, No Rhinorrhea, No Swallowing Difficulty Eyes: No Eye Pain, No Swelling, No Redness, No Foreign Body, No Discharge, No Vision Changes Cardiovascular : No Chest Pain, no orthopnea, no palpitations Respiratory : Complaining of cough, sputum production, wheezing, shortness of breath Gastrointestinal : No Nausea, No Vomiting, No Diarrhea, No Constipation, No abdominal Pain, No Hematochezia, No Melena Genitourinary : no irregular bleeding, No Dysuria, No Urinary Frequency, No Hematuria, No Urinary Incontinence, No Urgency, No Flank Pain, No Urinary Flow Changes, No Hesitancy Musculoskeletal : No joint pain, No Myalgias, No Joint Swelling Skin : No Skin Lesions, No rash Neuro : No Weakness, No Numbness, No Paresthesias, No Loss of Consciousness, No Dizziness, No Headache Psych : No Anxiety/Panic, No Depression, No SI/HI/AH/VH, No Social Issues, Heme/Lymph: No Bruising, No Bleeding,No Lymphadenopathy Endocrine : No Polyuria, No Polydipsia, No Temperature Intolerance PMFSH Past Medical History Medical History Asthma Atherosclerotic cardiovascular disease Atrial tachycardia COPD (chronic obstructive pulmonary disease) COVID-19 vaccine series completed Diabetes Diabetic toe ulcer Essential hypertension GERD (gastroesophageal reflux disease) Hypertension Osteomyelitis Surgical History History of esophagogastroduodenoscopy (EGD) History of toe surgery (09/22/21) Family History Family History Mother Hx of CABG Sister CAD (coronary artery disease) Social History Social History Household Members: Family Housing: Apartment Do you presently have visiting nurse or other home services: Yes Alcohol intake: never Patient Tobacco Use Status: Current everyday Tobacco user Tobacco use type: Cigarette Cigarettes Per Day: 1 Years Smoked: 43 Smoked in Last 30 Days: No e-Cigarette/Vaping Use: Never Used Second Hand Smoke Exposure: Yes Advance Directives Date on File: 12/28/20 service: No Current occupational status: unemployed Physical Exam Vital Signs: Vital Signs: Last Vital Signs Temp 98.4 F 03/16/22 23:03 Pulse 108 H 03/17/22 00:41 Resp 15 03/17/22 02:13 BP 149/77 H 03/17/22 00:41 Pulse Ox 94 03/17/22 00:41 O2 Del Method 03/17/22 00:41 O2 Flow Rate 5 03/17/22 00:00 BMI result Body Mass Index 25.7 Const: Other: Appearance: Alert. Oriented X3. Very anxious, in respiratory distress Eyes: Pupils equal, round and reactive to light. ENT: Pharynx normal. Neck: Normal inspection. Neck supple. No lymph nodes noted. No crepitus CVS: Normal heart rate and rhythm. Pulses normal. Normal S1 and S2 Respiratory: In moderate respiratory distress, tachypneic, respiratory rate 30, oxygen saturation 94% on 6 L. diminished breath sounds bilaterally with mild underlying Abdomen: Soft and nontender. No rigidity. No distention. Skin: Skin warm and dry. Normal skin color. Normal skin turgor. Extremities: No lower extremity edema. No Lacerations. No Rash Neuro: Oriented X 3. No motor deficit. No sensory deficit. Moving all extremities. No slurred speech. CN 2 through 12 grossly intact Psych very anxious, cooperative Course Course Course Narrative: Of patient's labs and imaging are pending. EMS reported that the patient's glucose was above 500. Lowest O2 was 94% on room air. Although patient's oxygen is in the mid 90s, patient has very diminished breath sounds and occasional wheezing. We are monitoring patient carefully as she may go into respiratory failure fairly quickly. At this time, patient is receiving IV fluids, Solu-Medrol, magnesium, levofloxacin. Patient was also given 1 mg Versed for anxiety and 10 units of insulin for hyperglycemia I asked patient to not leave against medical advise today. I discussed with the patient that she is very sick and leaving against Medical advice can be dangerous even life-threatening. Patient states that she will consider not leaving AMA. Patient has been doing well on 4 L. However, patient is becoming somnolent, and occasionally, oxygen drops to the mid 80s. Patient was started on BiPAP. Patient wakes up her name is called. On repeat physical exam, patient is still very tight, wheezing Patient's blood glucose after 10 units drops to 525. Patient is receiving an additional 10 units, now 20 units in total. Patient has not reported any chest pain. Patient's troponin usually runs approximately around 22 to 30. Patient was here yesterday, her troponin was 238. Patient left against medical advice. Today, patient's troponin increased to 814. There are no new EKG changes from the EKG of March 09. Patient does have ST segment depressions in the lateral leads, however these are chronic. Two EKGs have been done today, both do not show any acute abnormality when compared to the EKG from March 15 and 03/09/2022 These changes are likely secondary to the COPD exacerbation. I tried contacting Dr. Cortez, however there has been no reply. I will go ahead and start patient on heparin. Troponin needs to be repeated at 03:00. Patient is to come off BiPAP approximately at 02:45. Patient is already awake, alert, answering questions appropriately Blood glucose to be checked at 03:00, anion gap is closed Sign-out given to Dr Lindquist Patient is to be admitted MDM - SOB/Dyspnea Lab Data Result diagrams: 03/17/22 00:06 03/17/22 00:06 Labs: Lab Results 03/17/22 03/17/2203/17/22 Range/Units 00:06 00:06 00:06 WBC 11.6 H (4.8-10.8) X10*3/uL RBC 4.50 (4.20-5.50) X10*6/uL Hgb 10.5 L (12.0-16.0) g/dl Hct 34.3 L (37.0-47.0) % MCV 76.2 L (80.0-98.0) fL MCH 23.3 L (27.0-33.0) pg MCHC 30.6 L (31.0-35.0) g/dl RDW 16.3 H (11.0-16.0) % Plt Count 179 (160-400) X10*3/uL MPV 11.9 (9.4-12.3) fL Immature Gran % (Auto) 0.9 H (0.0-0.4) % Neut % (Auto) 84.7 H (45-73) % Lymph % (Auto) 10.0 L (20-40) % [place] % (Auto) 4.1 (2-11) % Eos % (Auto) 0.2 (0-4) % Baso % (Auto) 0.1 (0-2) % Lymph # (Auto) 1.2 (1.2-4.9) X10*3/uL [place] # (Auto) 0.5 (0.1-1.2) X10*3/uL Eos # (Auto) 0.0 (0.0-0.4) X10*3/uL Baso # (Auto) 0.0 (0.0-0.2) X10*3/uL Abs Immat Gran (auto) 0.11 H (0.00-0.03) X10*3/uL Absolute Neuts (auto) 9.8 H (2.0-8.3) x10*3/uL Absolute Nucleated RBC 0.000 (0.0-0.012) X10*3/uL Nucleated RBC % (auto) 0.0 (0.0-0.2) /100WBC PT 11.5 (10.0-13.1) SEC INR 1.0 (0.9-1.1) VBG pH (7.32-7.43) VBG pCO2 mmHg VBG pO2 mmHg VBG HCO3 (22-26) mmol/L VBG O2 Saturation % VBG Base Excess mmol/L Sodium 136 (135-145) mmol/L Potassium 3.5 (3.3-5.1) mmol/L Chloride 98 (96-108) mmol/L Carbon Dioxide 25 (22-29) mmol/L Anion Gap 17 (12-20) BUN 16 (9-16) mg/dL Creatinine 1.37 (0.5-1.4) mg/dL Estim Creat Clear Calc 46.5 Estimated GFR 41 POC Glucose (60-115) mg/dL Random Glucose 685 H* (60-115) mg/dL Lactic Acid (0.5-2.0) mmol/L Calcium 8.3 L (8.4-10.2) mg/dL Total Bilirubin 0.3 (0.0-1.0) mg/dL Direct Bilirubin 0.2 (0.0-0.5) mg/dL AST 11 D (5-31) U/L ALT 15 (0-31) U/L Alkaline Phosphatase 86 (39-117) U/L Troponin I High Sens (<3.5-17.0) ng/L B-Natriuretic Peptide (<100) pg/mL Total Protein 6.2 L (6.5-8.0) g/dL Albumin 3.7 (3.5-5.0) g/dL COVID-19 (KATHLEEN) (Negative) COVID-19 Clin Com 03/17/22 03/17/22 03/17/22 Range/Units 00:06 00:06 00:06 WBC (4.8-10.8) X10*3/uL RBC (4.20-5.50) X10*6/uL Hgb (12.0-16.0) g/dl Hct (37.0-47.0) % MCV (80.0-98.0) fL MCH (27.0-33.0) pg MCHC (31.0-35.0) g/dl RDW (11.0-16.0) % Plt Count (160-400) X10*3/uL MPV (9.4-12.3) fL Immature Gran % (Auto) (0.0-0.4) % Neut % (Auto) (45-73) % Lymph % (Auto) (20-40) % [place] % (Auto) (2-11) % Eos % (Auto) (0-4) % Baso % (Auto) (0-2) % Lymph # (Auto) (1.2-4.9) X10*3/uL [place] # (Auto) (0.1-1.2) X10*3/uL Eos # (Auto) (0.0-0.4) X10*3/uL Baso # (Auto) (0.0-0.2) X10*3/uL Abs Immat Gran (auto) (0.00-0.03) X10*3/uL Absolute Neuts (auto) (2.0-8.3) x10*3/uL Absolute Nucleated RBC (0.0-0.012) X10*3/uL Nucleated RBC % (auto) (0.0-0.2) /100WBC PT (10.0-13.1) SEC INR (0.9-1.1) VBG pH (7.32-7.43) VBG pCO2 mmHg VBG pO2 mmHg VBG HCO3 (22-26) mmol/L VBG O2 Saturation % VBG Base Excess mmol/L Sodium (135-145) mmol/L Potassium (3.3-5.1) mmol/L Chloride (96-108) mmol/L Carbon Dioxide (22-29) mmol/L Anion Gap (12-20) BUN (9-16) mg/dL Creatinine (0.5-1.4) mg/dL Estim Creat Clear Calc Estimated GFR POC Glucose (60-115) mg/dL Random Glucose (60-115) mg/dL Lactic Acid 4.7 H* (0.5-2.0) mmol/L Calcium (8.4-10.2) mg/dL Total Bilirubin (0.0-1.0) mg/dL Direct Bilirubin (0.0-0.5) mg/dL AST (5-31) U/L ALT (0-31) U/L Alkaline Phosphatase (39-117) U/L Troponin I High Sens 814.4 H* D (<3.5-17.0) ng/L B-Natriuretic Peptide 909 H (<100) pg/mL Total Protein (6.5-8.0) g/dL Albumin (3.5-5.0) g/dL COVID-19 (KATHLEEN) Negative (Negative) COVID-19 Clin Com See Note 03/17/22 03/17/22 Range/Units 00:13 01:43 WBC (4.8-10.8) X10*3/uL RBC (4.20-5.50) X10*6/uL Hgb (12.0-16.0) g/dl Hct (37.0-47.0) % MCV (80.0-98.0) fL MCH (27.0-33.0) pg MCHC (31.0-35.0) g/dl RDW (11.0-16.0) % Plt Count (160-400) X10*3/uL MPV (9.4-12.3) fL Immature Gran % (Auto) (0.0-0.4) % Neut % (Auto) (45-73) % Lymph % (Auto) (20-40) % [place] % (Auto) (2-11) % Eos % (Auto) (0-4) % Baso % (Auto) (0-2) % Lymph # (Auto) (1.2-4.9) X10*3/uL [place] # (Auto) (0.1-1.2) X10*3/uL Eos # (Auto) (0.0-0.4) X10*3/uL Baso # (Auto) (0.0-0.2) X10*3/uL Abs Immat Gran (auto) (0.00-0.03) X10*3/uL Absolute Neuts (auto) (2.0-8.3) x10*3/uL Absolute Nucleated RBC (0.0-0.012) X10*3/uL Nucleated RBC % (auto) (0.0-0.2) /100WBC PT (10.0-13.1) SEC INR (0.9-1.1) VBG pH 7.36 (7.32-7.43) VBG pCO2 39 mmHg VBG pO2 82 mmHg VBG HCO3 23 (22-26) mmol/L VBG O2 Saturation 96.0 % VBG Base Excess -2.0 mmol/L Sodium (135-145) mmol/L Potassium (3.3-5.1) mmol/L Chloride (96-108) mmol/L Carbon Dioxide (22-29) mmol/L Anion Gap (12-20) BUN (9-16) mg/dL Creatinine (0.5-1.4) mg/dL Estim Creat Clear Calc Estimated GFR POC Glucose 525 H* (60-115) mg/dL Random Glucose (60-115) mg/dL Lactic Acid (0.5-2.0) mmol/L Calcium (8.4-10.2) mg/dL Total Bilirubin (0.0-1.0) mg/dL Direct Bilirubin (0.0-0.5) mg/dL AST (5-31) U/L ALT (0-31) U/L Alkaline Phosphatase (39-117) U/L Troponin I High Sens (<3.5-17.0) ng/L B-Natriuretic Peptide (<100) pg/mL Total Protein (6.5-8.0) g/dL Albumin (3.5-5.0) g/dL COVID-19 (KATHLEEN) (Negative) COVID-19 Clin Com Critical Care Time Critical Care Time Critical Care Time: Yes Total Critical Care Time: 60 Attestation: I have personally provided critical care time. Time includes review of lab data, radiology results, discussion with consultants, and monitoring for potential decompensation. Intervention performed as documented. Discharge Plan Discharge Clinical Impression: COPD (chronic obstructive pulmonary disease), Acute hyperglycemia, Non-ST elevation IL (NSTEMI) Patient Disposition: Admitted As Inpatient
[2022-03-16 23:03] VITALS: BP 147/76; PULSE 120; RESP 29; TEMP 36.9; O2SAT 94
[2022-03-16] MEDS: 0.9 % Sodium Chloride 2,000 ML 999 ML IVCONT (23:09)
[2022-03-16] MEDS: Insulin Regular, Human 100 UNIT/ML 3 ML VIAL 10 UNIT IVPUSH (23:10)
[2022-03-16] MEDS: methylPREDNISolone Sod Succ 125 MG/2 ML VIAL IVPUSH (23:10)
[2022-03-16] MEDS: Magnesium Sulfate/D5W 1 GM/100 ML PIGGYBACK IV (23:11)
[2022-03-17] VITALS: BP 152/73; PULSE 113; RESP 16; O2SAT 91
[2022-03-17 00:12] LABS: Basophils Percent Auto 0.1 % (0-2); Eosinophils Percent Auto 0.2 % (0-4); Hematocrit 34.3 % (37.0-47.0); Hemoglobin 10.5 g/dl (12.0-16.0); Imm Gran Abs Auto 0.11 X10*3/uL (0.00-0.03); Imm Gran Pct Auto 0.9 % (0.0-0.4); Lymphocytes Absolute Auto 1.2 X10*3/uL (1.2-4.9); MANUAL DIFF FLAG NO; Mean Corpuscular HGB Conc 30.6 g/dl (31.0-35.0); Mean Corpuscular Hemoglobin 23.3 pg (27.0-33.0); Mean Corpuscular Volume 76.2 fL (80.0-98.0); Mean Platelet Volume 11.9 fL (9.4-12.3); Monocytes Absolute Auto 0.5 X10*3/uL (0.1-1.2); Monocytes Percent Auto 4.1 % (2-11); Neutrophils Absolute Auto 9.8 x10*3/uL (2.0-8.3); Neutrophils Percent Auto 84.7 % (45-73); Platelet Count 179 X10*3/uL (160-400); Red Cell Distribution Width 16.3 % (11.0-16.0); White Blood Count 11.6 X10*3/uL (4.8-10.8)
[2022-03-17] MEDS: levoFLOXacin/D5W 500 MG/100 ML PIGGYBACK 100 MG IV (00:13)
[2022-03-17 00:18] LABS: Venous Blood Gas Refer to POC result
[2022-03-17 00:19] LABS: Prothrombin Time 11.5 SEC (10.0-13.1)
[2022-03-17 00:19] LABS: VBG HCO3 23 mmol/L (22-26); VBG pCO2 39 mmHg; VBG pH 7.36 (7.32-7.43); VBG pO2 82 mmHg
[2022-03-17 00:34] LABS: Lactic Acid 4.7 mmol/L (0.5-2.0)
[2022-03-17 00:41] VITALS: BP 149/77; PULSE 108; RESP 15; O2SAT 94
--- NOTE | 2022-03-17 00:44 | PC.NURSE ---
versed held at this time due to pt is sleeping and snooring at this time sat 91-95% on room air.
[2022-03-17 00:46] LABS: Alanine Aminotransferase 15 U/L (0-31); Albumin Level 3.7 g/dL (3.5-5.0); Alkaline Phosphatase 86 U/L (39-117); Anion Gap 17 (12-20); Aspartate Amino Transferase 11 U/L (5-31); Bilirubin Direct 0.2 mg/dL (0.0-0.5); Bilirubin Total 0.3 mg/dL (0.0-1.0); Blood Urea Nitrogen 16 mg/dL (9-16); Calcium 8.3 mg/dL (8.4-10.2); Carbon Dioxide 25 mmol/L (22-29); Chloride 98 mmol/L (96-108); Creatinine Clr Calc Pharmacy 46.5; Estimated Glomerular Filt Rate 41; Glucose Random 685 mg/dL (60-115); Potassium 3.5 mmol/L (3.3-5.1); Sodium 136 mmol/L (135-145); Total Protein 6.2 g/dL (6.5-8.0)
[2022-03-17 00:47] LABS: COVID-19 Test Negative (Negative)
[2022-03-17 01:46] LABS: B Type Natriuretic Peptide 909 pg/mL (<100); Troponin-I High Sensitivity 814.4 ng/L (<3.5-17.0)
[2022-03-17 01:51] LABS: Glucose, Whole Blood 525 mg/dL (60-115)
[2022-03-17 02:00] VITALS: BP 148/74; PULSE 108; RESP 15; O2SAT 96
[2022-03-17] MEDS: Albuterol/Iprat 2.5/0.5MG 3 ML AMPUL.NEB INHALE (02:10)
[2022-03-17] MEDS: Albuterol Sulfate (0.083%) 2.5 MG/3 ML VIAL.NEB 7.5 MG INHALE (02:10)
[2022-03-17 02:13] VITALS: PULSE 104; RESP 15; O2SAT 99
[2022-03-17 02:13] LABS: Reflex Lactate? Lactic Acid Added
[2022-03-17 03:04] LABS: PTT Heparin Drip 24.2 SEC (53-77.9)
[2022-03-17] MEDS: Heparin Sodium,Porcine/1/2NS 25,000 UNIT/250 ML IV.SOLN 10.08 UNIT IVCONT (03:07)
[2022-03-17] MEDS: Insulin Regular, Human 100 UNIT/ML 3 ML VIAL 10 UNIT IVPUSH (03:09)
[2022-03-17 03:35] LABS: ~Lactic Acid-LAB USE ONLY 2.1 mmol/L (0.5-2.0)
[2022-03-17 03:45] LABS: Troponin-I High Sensitivity 1207.7 ng/L (<3.5-17.0)
[2022-03-17 04:53] LABS: Reflex Lactate? 2 Y
[2022-03-17 05:08] VITALS: BP 146/70; PULSE 102; RESP 13; O2SAT 98
--- NOTE | 2022-03-17 05:24 | PC.NURSE ---
with hospitalist and dr ramirez at bedside pt expressed her need to go home due to she has a 15 year old son in a wheelchair with ms. 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 risks of leaving ama explained and pt stated she takes all her meds, keeps all her doctors appointments and she is working on this issue. pt is alert orientedx4. calm and cooperative.
[2022-03-17 05:30] LABS: Glucose, Whole Blood 486 mg/dL (60-115)
[2022-03-17] MEDS: Insulin Glargine,Hum.rec.anlog 100 UNIT/ML 10 ML VIAL 20 UNIT SUBCUT (05:35)
[2022-03-17] MEDS: Insulin Lispro 100 UNIT/ML 3 ML VIAL 10 UNIT SUBCUT (05:36)
--- NOTE | 2022-03-17 05:37 | PM.EVENT ---
Event Note Date of Service: 03/17/22 Event Note: I went admit the patient to our service, she was on BiPAP, BiPAP was removed, as I was talking to her she tells me that she has bad news in that she is not staying and does not want to be admitted. I a discuss leaving AMA with the patient, she understands the risk, she was able to demonstrate understanding by stating that if she left AMA she might end up and respiratory failure and were scenario . Her nurse was at bedside during this conversation. Formed ED physician the patient is not willing to stay.
[2022-03-17] MEDS: Albuterol Sulfate 2.5 MG, Albuterol/Iprat 2.5/0.5MG 3 ML 3 ML INHALE (05:39)
--- NOTE | 2022-03-17 06:41 | PC.NURSE ---
heparin drip dc due to pt left ama. infusion for 3.5 hours. waisted the rest of the bag. rate 10.8
--- NOTE | 2022-03-17 14:23 | ECG_ITS ---
Test Reason : SOB Blood Pressure : / mmHG Vent. Rate : 104 BPM Atrial Rate : 104 BPM P-R Int : 140 ms QRS Dur : 086 ms QT Int : 380 ms P-R-T Axes : 068 045 083 degrees QTc Int : 499 ms Sinus tachycardia Possible Anterior infarct (cited on or before 15-MAR-2022) Abnormal ECG When compared with ECG of 16-MAR-2022 23:18, No significant change was found Referred By: Anna Vela Electronically Signed By:JARRED BARRETO
== END 2022-03-17 06:43 | disposition left against medical advice (07) ==
PROVIDERS: Emergency Provider Emergency Medicine
DX: J44.9 Chronic obstructive pulmonary disease, unspecified (principal); E11.65 Type 2 diabetes mellitus with hyperglycemia; I21.4 Non-ST elevation (NSTEMI) myocardial infarction; R06.02 Shortness of breath; F41.9 Anxiety disorder, unspecified; I10 Essential (primary) hypertension; F17.210 Nicotine dependence, cigarettes, uncomplicated; Z20.822 Contact with and (suspected) exposure to COVID-19; Z79.899 Other long term (current) drug therapy; Z79.82 Long term (current) use of aspirin; Z79.02 Long term (current) use of antithrombotics/antiplatelets; Z79.4 Long term (current) use of insulin
CPT/HCPCS: 36415; 71045; 80048; 80076; 82803; 82947; 83605; 83880; 84484; 85025; 85610; 85730; 87040; 87635; 93005; 94660; 96365; 96366; 96375; 96376; 99285; J1956; J2930; J3475

== ENCOUNTER 2022-03-18 03:00 | Emergency (ER) | payer MEDICAID, SELFPAY ==
[2022-03-18 03:06] VITALS: BP 142/70; BP 161/86; PULSE 126; PULSE 130; RESP 27; TEMP 36.6; O2SAT 99; BMI 24.7
--- NOTE | 2022-03-18 03:17 | PC.NURSE ---
Pt. on personnel monitor at this time. Awaiting MD Jenise assessment. Pt. repeatedly begging for staff to help her d/t SOB- she is currently 99% on 8L via non-rebreather.
[2022-03-18 03:18] VITALS: BP 161/86; PULSE 126; RESP 22; TEMP 36.6; O2SAT 100
--- NOTE | 2022-03-18 03:19 | PC.NURSE ---
YECENIA Zaragoza took pt.'s POC, and result is reading TOO HIGH. Notifying MD at this time
--- NOTE | 2022-03-18 03:21 | ED_ITS ---
HPI - SOB/Dyspnea General Chief Complaint: Dyspnea Stated Complaint: SOB Time Seen by Provider: 03/18/22 03:17 Source: patient and EMS Mode of arrival: EMS Limitations: no limitations History of Present Illness HPI Narrative: Patient 51 years old with history of asthma COPD diabetes hypertension smoker been here 2 times in last 1 week for increased shortness of breath and left against medical advice , just left early earlier today comes back for increased shortness of breath started just prior to arrival blood sugar reading very high EMS gave 2 DuoNeb treatment with partial response patient is saturating 100% while on DuoNeb treatment Related Data Home Medications Medication Instructions Recorded Confirmed albuterol sulfate 90 mcg/actuation 2 puff PO Q4H PRN wheezing 12/24/20 03/09/22 aerosol inhaler (ProAir HFA) aspirin 81 mg tablet,delayed 1 tab PO DAILY 12/24/20 03/09/22 release atorvastatin 10 mg tablet 1 tab PO DAILY 12/24/20 03/09/22 fluticasone propionate 115 2 puff inhalation BID 12/24/20 03/09/22 mcg-salmeterol 21 mcg/actuation HFA inhaler (Advair HFA) glipizide 5 mg-metformin 500 mg 2 tab PO BID 12/24/20 03/09/22 tablet albuterol sulfate 2.5 mg/3 mL 2.5 mg inhalation Q4H PRN 07/11/21 03/09/22 (0.083 %) solution for nebulization Respiratory Distress insulin glargine 100 unit/mL (3 12 unit subcut BEDTIME 10/31/21 03/09/22 mL) subcutaneous pen (Lantus Solostar U-100 Insulin) lisinopril 20 1 tab PO DAILY 10/31/21 03/09/22 mg-hydrochlorothiazide 12.5 mg tablet umeclidinium 62.5 mcg/actuation 1 puff PO DAILY 10/31/21 03/09/22 blister powder for inhalation (Incruse Ellipta) montelukast 10 mg tablet 1 tab PO BEDTIME 02/13/22 03/09/22 Previous Rx's Medication Instructions Recorded amlodipine 10 mg tablet 10 mg PO DAILY 30 days #30 tabs 12/27/20 gabapentin 300 mg capsule 600 mg PO BEDTIME #20 caps 11/21/21 azithromycin 250 mg tablet See Rx Instructions PO .COMPLEX #6 09/28/22 tabs furosemide 20 mg tablet (Lasix) 20 mg PO DAILY 3 days #3 tabs 03/09/22 potassium chloride 20 mEq 20 meq PO DAILY 5 days #5 tabs 03/09/22 tablet,extended release prednisone 20 mg tablet 40 mg PO DAILY 5 days #10 tabs 03/09/22 albuterol sulfate 2.5 mg/3 mL 2.5 mg (3 mL) inhalation QID PRN 03/15/22 (0.083 %) solution for nebulization bronchospasm #90 mL prednisone 20 mg tablet 20 mg PO BID #8 tabs 03/15/22 cefuroxime axetil 500 mg tablet 500 mg PO BID #20 tabs 03/17/22 codeine 10 mg-guaifenesin 100 mg/5 10 ml PO Q6H PRN cough #237 mL 03/17/22 mL oral liquid doxycycline hyclate 100 mg tablet 100 mg PO BID #20 tabs 03/17/22 Allergies Allergy/AdvReac Type Severity Reaction Status Date / Time Penicillins [PENICILLINS] Allergy Severe RASH Verified 02/14/22 07:59 amoxicillin [AMOXICILLIN] Allergy Intermediate HIVES Verified 02/11/22 15:09 Review of Systems Review of Systems: Yes all other systems are reviewed and are negative PMFSH Past Medical History Medical History Asthma Atherosclerotic cardiovascular disease Atrial tachycardia COPD (chronic obstructive pulmonary disease) COVID-19 vaccine series completed Diabetes Diabetic toe ulcer Essential hypertension GERD (gastroesophageal reflux disease) Hypertension Osteomyelitis Surgical History History of esophagogastroduodenoscopy (EGD) History of toe surgery (09/22/21) Family History Family History Mother Hx of CABG Sister CAD (coronary artery disease) Social History Social History Household Members: Family Housing: Apartment Do you presently have visiting nurse or other home services: Yes Alcohol intake: never Patient Tobacco Use Status: Current everyday Tobacco user Tobacco use type: Cigarette Cigarettes Per Day: 1 Years Smoked: 43 e-Cigarette/Vaping Use: Never Used Second Hand Smoke Exposure: Yes Use of substances other than those prescribed or required for medical reasons: No Advance Directives: No Advance Directives Date on File: 12/28/20 service: No Current occupational status: unemployed Physical Exam Vital Signs: Vital Signs: Last Vital Signs Temp 97.8 F 03/18/22 03:18 Pulse 116 H 03/18/22 04:45 Resp 14 03/18/22 04:45 BP 150/80 H 03/18/22 04:45 Pulse Ox 96 03/18/22 04:45 O2 Del Method 03/18/22 04:45 O2 Flow Rate 2 03/18/22 04:45 Oxygen Flow Rate 8 03/18/22 03:06 BMI result Body Mass Index 24.7 Appearance: Alert. Oriented X3. In moderate distress Eyes: PERRLA, No Nystagmus ENT: Pharynx normal. Oral Mucosa moist Neck: Normal inspection. Neck supple. CVS: Normal heart rate and rhythm. Pulses normal. Respiratory: Moderate respiratory distress. Equal air entry bilateral, bilateral wheezing. rhonchi Abdomen: Soft and nontender. Bowel sounds are present, no mass palpable, no CVA tenderness Skin: Skin warm and dry. Normal skin color. Normal skin turgor. Extremities: No lower extremity edema. No calf tenderness Neuro: Oriented X 3. No motor deficit. No sensory deficit.No cerebellar signs , cranial nerves II-XII intact MDM - SOB/Dyspnea MDM Narrative Medical decision making narrative: Patient with chronic lung disease bronchitis smoker blood cultures ordered yesterday negative with family situation son with MS patient had CTA chest on 03/09 which was negative will admit patient for chronic lung condition with asthma and bronchitis with diabetes on hyperglycemia with hypoxia [id number] patient feeling better ambulatory saturating 95% at room air POC 506 received Lantus and Humalog refusing to stay in the hospital signing against medical advise Differential Diagnosis Differential diagnosis: Likely acute exacerbation of chronic obstructive airways disease, congestive heart failure, pneumonia, pulmonary embolism and sleep apnea Medical Records Attestation: I reviewed the patient's medical records. Lab Data Attestation: I reviewed the patient's lab results. Result diagrams: 03/18/22 03:35 03/18/22 03:35 Labs: Lab Results 03/18/22 03/18/22 03/18/22 Range/Units 03:18 03:35 03:35 WBC 10.9 H (4.8-10.8) X10*3/uL RBC 4.41 (4.20-5.50) X10*6/uL Hgb 10.3 L (12.0-16.0) g/dl Hct 34.3 L (37.0-47.0) % MCV 77.8 L (80.0-98.0) fL MCH 23.4 L (27.0-33.0) pg MCHC 30.0 L (31.0-35.0) g/dl RDW 17.0 H (11.0-16.0) % Plt Count 169 (160-400) X10*3/uL MPV 11.6 (9.4-12.3) fL Immature Gran % (Auto) 0.8 H (0.0-0.4) % Neut % (Auto) 89.9 H (45-73) % Lymph % (Auto) 4.7 L (20-40) % [place] % (Auto) 4.6 (2-11) % Eos % (Auto) 0.0 (0-4) % Baso % (Auto) 0.0 (0-2) % Lymph # (Auto) 0.5 L (1.2-4.9) X10*3/uL [place] # (Auto) 0.5 (0.1-1.2) X10*3/uL Eos # (Auto) 0.0 (0.0-0.4) X10*3/uL Baso # (Auto) 0.0 (0.0-0.2) X10*3/uL Abs Immat Gran (auto) 0.09 H (0.00-0.03) X10*3/uL Absolute Neuts (auto) 9.8 H (2.0-8.3) x10*3/uL Absolute Nucleated RBC 0.000 (0.0-0.012) X10*3/uL Nucleated RBC % (auto) 0.0 (0.0-0.2) /100WBC VBG pH (7.32-7.43) VBG pCO2 mmHg VBG pO2 mmHg VBG HCO3 (22-26) mmol/L VBG O2 Saturation % VBG Base Excess mmol/L Sodium 129 L (135-145) mmol/L Potassium 4.1 (3.3-5.1) mmol/L Chloride 93 L (96-108) mmol/L Carbon Dioxide 20 L (22-29) mmol/L Anion Gap 20 (12-20) BUN 16 (9-16) mg/dL Creatinine 1.50 H (0.5-1.4) mg/dL Estim Creat Clear Calc 40.2 Estimated GFR 37 POC Glucose > 600 H* (60-115) mg/dL Random Glucose 847 H* (60-115) mg/dL Calcium 8.9 D (8.4-10.2) mg/dL Acetone, Qual (Negative) 03/18/22 03/18/22 03/18/22 Range/Units 03:35 03:40 04:47 WBC (4.8-10.8) X10*3/uL RBC (4.20-5.50) X10*6/uL Hgb (12.0-16.0) g/dl Hct (37.0-47.0) % MCV (80.0-98.0) fL MCH (27.0-33.0) pg MCHC (31.0-35.0) g/dl RDW (11.0-16.0) % Plt Count (160-400) X10*3/uL MPV (9.4-12.3) fL Immature Gran % (Auto) (0.0-0.4) % Neut % (Auto) (45-73) % Lymph % (Auto) (20-40) % [place] % (Auto) (2-11) % Eos % (Auto) (0-4) % Baso % (Auto) (0-2) % Lymph # (Auto) (1.2-4.9) X10*3/uL [place] # (Auto) (0.1-1.2) X10*3/uL Eos # (Auto) (0.0-0.4) X10*3/uL Baso # (Auto) (0.0-0.2) X10*3/uL Abs Immat Gran (auto) (0.00-0.03) X10*3/uL Absolute Neuts (auto) (2.0-8.3) x10*3/uL Absolute Nucleated RBC (0.0-0.012) X10*3/uL Nucleated RBC % (auto) (0.0-0.2) /100WBC VBG pH 7.30 L (7.32-7.43) VBG pCO2 38 mmHg VBG pO2 57 mmHg VBG HCO3 19 L (22-26) mmol/L VBG O2 Saturation 83.0 % VBG Base Excess -6.4 mmol/L Sodium (135-145) mmol/L Potassium (3.3-5.1) mmol/L Chloride (96-108) mmol/L Carbon Dioxide (22-29) mmol/L Anion Gap (12-20) BUN (9-16) mg/dL Creatinine (0.5-1.4) mg/dL Estim Creat Clear Calc Estimated GFR POC Glucose > 600 H* (60-115) mg/dL Random Glucose (60-115) mg/dL Calcium (8.4-10.2) mg/dL Acetone, Qual Negative (Negative) 03/18/22 Range/Units 06:18 WBC (4.8-10.8) X10*3/uL RBC (4.20-5.50) X10*6/uL Hgb (12.0-16.0) g/dl Hct (37.0-47.0) % MCV (80.0-98.0) fL MCH (27.0-33.0) pg MCHC (31.0-35.0) g/dl RDW (11.0-16.0) % Plt Count (160-400) X10*3/uL MPV (9.4-12.3) fL Immature Gran % (Auto) (0.0-0.4) % Neut % (Auto) (45-73) % Lymph % (Auto) (20-40) % [place] % (Auto) (2-11) % Eos % (Auto) (0-4) % Baso % (Auto) (0-2) % Lymph # (Auto) (1.2-4.9) X10*3/uL [place] # (Auto) (0.1-1.2) X10*3/uL Eos # (Auto) (0.0-0.4) X10*3/uL Baso # (Auto) (0.0-0.2) X10*3/uL Abs Immat Gran (auto) (0.00-0.03) X10*3/uL Absolute Neuts (auto) (2.0-8.3) x10*3/uL Absolute Nucleated RBC (0.0-0.012) X10*3/uL Nucleated RBC % (auto) (0.0-0.2) /100WBC VBG pH (7.32-7.43) VBG pCO2 mmHg VBG pO2 mmHg VBG HCO3 (22-26) mmol/L VBG O2 Saturation % VBG Base Excess mmol/L Sodium (135-145) mmol/L Potassium (3.3-5.1) mmol/L Chloride (96-108) mmol/L Carbon Dioxide (22-29) mmol/L Anion Gap (12-20) BUN (9-16) mg/dL Creatinine (0.5-1.4) mg/dL Estim Creat Clear Calc Estimated GFR POC Glucose 506 H* (60-115) mg/dL Random Glucose (60-115) mg/dL Calcium (8.4-10.2) mg/dL Acetone, Qual (Negative) Critical Care Time Critical Care Time Critical Care Time: Yes Total Critical Care Time: 65 Attestation: I spent 65 minutes of critical care, with interventions, assessments, speaking to patient, consultants, and family. Discharge Plan Discharge Clinical Impression: COPD (chronic obstructive pulmonary disease), Hyperglycemia due to type 2 diabetes mellitus, Acute respiratory distress syndrome, IRAIS (acute kidney inj ury) Patient Disposition: Left Against Medical Advice Instructions: Acute Kidney Injury (DC), COPD (Chronic Obstructive Pulmonary Disease) (ED), Diabetic Hyperglycemia (ED) Additional Instructions: Continue medication as prescribed yesterday Come back to the emergency room department for further management Prescriptions: No Action atorvastatin 10 mg tablet 1 tab PO DAILY aspirin 81 mg tablet,delayed release (DR/EC) 1 tab PO DAILY albuterol sulfate [ProAir HFA] 90 mcg/actuation HFA aerosol inhaler 2 puff PO Q4H PRN (Reason: wheezing) glipizide-metformin 5-500 mg tablet 2 tab PO BID Advair HFA 115-21 mcg/actuation HFA aerosol inhaler 2 puff inhalation BID amlodipine 10 mg Tablet 10 mg PO DAILY 30 Days Qty: 30 0RF Protocol: Hold for SBP< HOLD for SBP < : 90 lisinopril-hydrochlorothiazide 20-12.5 mg tablet 1 tab PO DAILY insulin glargine [Lantus Solostar U-100 Insulin] 100 unit/mL (3 mL) insulin pen 12 unit subcut BEDTIME Incruse Ellipta 62.5 mcg/actuation blister with device 1 puff PO DAILY montelukast 10 mg tablet 1 tab PO BEDTIME azithromycin 250 mg tablet See Rx Instructions .ROUTE .COMPLEX Qty: 6 0RF Rx Instructions: For 250 mg dose pack: take 500 mg today (day 1), then 250 mg for 4 days (days 2-5) prednisone 20 mg tablet 40 mg PO DAILY 5 Days Qty: 10 0RF furosemide [Lasix] 20 mg tablet 20 mg PO DAILY 3 Days Qty: 3 0RF Rx Instructions: start on 03/10 potassium chloride 20 mEq tablet extended release 20 meq PO DAILY 5 Days Qty: 5 0RF prednisone 20 mg tablet 20 mg PO BID Qty: 8 0RF albuterol sulfate 2.5 mg /3 mL (0.083 %) solution for nebulization 2.5 mg inhalation QID PRN (Reason: bronchospasm) Qty: 90 0RF codeine-guaifenesin 10-100 mg/5 mL liquid 10 ml PO Q6H PRN (Reason: cough) Qty: 237 0RF cefuroxime axetil 500 mg tablet 500 mg PO BID Qty: 20 0RF doxycycline hyclate 100 mg tablet 100 mg PO BID Qty: 20 0RF albuterol sulfate 2.5 mg /3 mL (0.083 %) Solution For Nebulization 2.5 mg INHALATION Q4H PRN (Reason: Respiratory Distress) gabapentin 300 mg Capsule 600 mg PO BEDTIME Qty: 20 0RF Stand Alone Forms: Against Medical Advice
[2022-03-18 03:23] LABS: Glucose, Whole Blood > 600 mg/dL (60-115)
[2022-03-18] MEDS: Albuterol Sulfate 5 MG, Albuterol/Iprat 2.5/0.5MG 3 ML 3 ML INHALE (03:30)
[2022-03-18 03:32] VITALS: PULSE 124; RESP 23; O2SAT 98
--- NOTE | 2022-03-18 03:40 | PC.NURSE ---
Labs collected and sent as ordered
[2022-03-18] MEDS: 0.9 % Sodium Chloride 1,000 ML 999 ML IV ×2 (03:42→06:40)
[2022-03-18 03:45] LABS: MANUAL DIFF FLAG NO
[2022-03-18 03:46] LABS: VBG Base Excess -6.4 mmol/L; VBG HCO3 19 mmol/L (22-26); VBG pCO2 38 mmHg; VBG pO2 57 mmHg
[2022-03-18 03:46] LABS: Venous Blood Gas Refer to POC result
[2022-03-18 03:47] LABS: Hematocrit 34.3 % (37.0-47.0); Hemoglobin 10.3 g/dl (12.0-16.0); Imm Gran Abs Auto 0.09 X10*3/uL (0.00-0.03); Imm Gran Pct Auto 0.8 % (0.0-0.4); Lymphocytes Absolute Auto 0.5 X10*3/uL (1.2-4.9); Lymphocytes Percent Auto 4.7 % (20-40); Mean Corpuscular Hemoglobin 23.4 pg (27.0-33.0); Mean Corpuscular Volume 77.8 fL (80.0-98.0); Mean Platelet Volume 11.6 fL (9.4-12.3); Monocytes Absolute Auto 0.5 X10*3/uL (0.1-1.2); Monocytes Percent Auto 4.6 % (2-11); Neutrophils Absolute Auto 9.8 x10*3/uL (2.0-8.3); Neutrophils Percent Auto 89.9 % (45-73); Platelet Count 169 X10*3/uL (160-400); Red Blood Count 4.41 X10*6/uL (4.20-5.50); White Blood Count 10.9 X10*3/uL (4.8-10.8)
[2022-03-18] MEDS: Insulin Lispro 100 UNIT/ML 3 ML VIAL 14 UNIT SUBCUT (03:47)
[2022-03-18] MEDS: Magnesium Sulfate/H2O 2 GM/50 ML PIGGYBACK IV (03:47)
[2022-03-18 03:49] VITALS: BP 155/51; PULSE 120; RESP 18; O2SAT 94
[2022-03-18 03:56] LABS: Acetone, serum QL Negative (Negative)
[2022-03-18 04:08] LABS: Anion Gap 20 (12-20); Blood Urea Nitrogen 16 mg/dL (9-16); Calcium 8.9 mg/dL (8.4-10.2); Carbon Dioxide 20 mmol/L (22-29); Chloride 93 mmol/L (96-108); Creatinine Clr Calc Pharmacy 40.2; Estimated Glomerular Filt Rate 37; Potassium 4.1 mmol/L (3.3-5.1); Sodium 129 mmol/L (135-145)
[2022-03-18 04:20] LABS: Glucose Random 847 mg/dL (60-115)
[2022-03-18 04:45] VITALS: BP 150/80; PULSE 116; RESP 14; O2SAT 96
--- NOTE | 2022-03-18 04:45 | PC.NURSE ---
Re-checked pt.'s POC. Result still reading on POC machine as TOO HIGH. Notifying MD and awaiting additional orders re: elevated sugar.
[2022-03-18 04:53] LABS: Glucose, Whole Blood > 600 mg/dL (60-115)
--- NOTE | 2022-03-18 05:00 | PC.NURSE ---
Pt. stood up OOB, squatted and urinated all over floor at bedside. Environmental called.
--- NOTE | 2022-03-18 05:29 | PC.NURSE ---
Giving 10U IVP Insulin as ordered. Per MD Jenise, hang another liter of NS. Hanging liter and awaiting order at this time.
[2022-03-18] MEDS: Insulin Regular, Human 100 UNIT/ML 3 ML VIAL 10 UNIT IVPUSH (05:31)
--- NOTE | 2022-03-18 06:19 | PC.NURSE ---
06:15 repeat POC = 506. MD Jenise aware
[2022-03-18 06:22] LABS: Glucose, Whole Blood 506 mg/dL (60-115)
[2022-03-18] MEDS: cefTRIAXone sodium 1 GM in 0.9 % Sodium Chloride 50 ML IV (06:37)
[2022-03-18] MEDS: Insulin Lispro 100 UNIT/ML 3 ML VIAL 10 UNIT SUBCUT (06:47)
[2022-03-18] MEDS: Insulin Glargine,Hum.rec.anlog 100 UNIT/ML 10 ML VIAL 20 UNIT SUBCUT (06:47)
[2022-03-18 06:57] VITALS: BP 160/84; PULSE 113; RESP 22; O2SAT 100
== END 2022-03-18 08:56 | disposition left against medical advice (07) ==
PROVIDERS: Emergency Provider Internal Medicine
DX: J44.9 Chronic obstructive pulmonary disease, unspecified (principal); R06.03 Acute respiratory distress; E11.65 Type 2 diabetes mellitus with hyperglycemia; R06.02 Shortness of breath; I10 Essential (primary) hypertension; Z79.899 Other long term (current) drug therapy
CPT/HCPCS: 36415; 80048; 82009; 82803; 82947; 85025; 94640; 96361; 96365; 96375; 99285; J0696; J3475

== ENCOUNTER 2022-03-23 01:53 | Emergency (ER) | payer MEDICAID, SELFPAY ==
[2022-03-23] VITALS (11 sets, daily range): BP systolic 97–153; BP diastolic 54–82; PULSE 92–144; RESP 12–33; TEMP 36.4–36.6; O2SAT 84–100; BMI 25.8; BMI 29.5
--- NOTE | ~2022-03-23 | CT_ITS ---
EXAMINATION: CT CHEST WITHOUT CONTRAST CLINICAL INFORMATION: Respiratory failure. COMPARISON: Chest radiograph from earlier today, chest CTA dated 03/01/2022. TECHNIQUE: Multidetector volumetric CT imaging of the chest was done. Axial MIP volume rendering provided. Sagittal and coronal reformatted images were obtained. This CT examination was performed using dose optimization techniques as appropriate, variously including the following: *Automated exposure control *Adjustment of mA and/or kV according to patient size (this includes techniques or standardized protocols for targeted exams where dose is matched to indication/reason for exam; i.e. extremities or head) *Use of iterative reconstruction technique DLP: 595 mGy-cm FINDINGS: LUNGS/PLEURA/AIRWAYS: Persistent small bilateral pleural effusions with adjacent compressive atelectasis are again seen without significant change. Adjacent lower lobe groundglass infiltrates representing interval improvement. Mild patchy groundglass infiltrates are seen in the upper lobes, not seen previously. No suspicious pulmonary nodules. The airways are patent. MEDIASTINUM: The visualized thyroid gland is unremarkable. The thoracic aorta shows mild aortic arch calcifications without significant dilatation. No coronary artery calcifications. No pericardial effusion. Mildly prominent mediastinal lymph nodes are again seen without significant change. A rental representative precarinal lymph node measures 0.8 cm in short axis (image 25, series 3). UPPER ABDOMEN: Unremarkable. MUSCULOSKELETAL: Mild multilevel degenerative changes without suspicious abnormality. SOFT TISSUES: Unremarkable. CT/CT chest wo IV con IMPRESSION: 1. Persistent small bilateral pleural effusions with compressive atelectasis without significant change. Previously seen bilateral lower lobe patchy infiltrate/atelectasis is improved with persistent groundglass infiltrates suggesting an infectious/inflammatory process. Short-term follow-up with PA and lateral views of the chest recommended to assess for change. If these findings persist radiographically, a repeat chest CT scan is recommended in 3 months. Fleischner guidelines were followed.
--- NOTE | ~2022-03-23 | XR_ITS ---
EXAMINATION: XR CHEST CLINICAL INFORMATION: Shortness of breath COMPARISON: 03/16/2022 TECHNIQUE: Frontal view of the chest was obtained. FINDINGS: Lung volumes are symmetric. No focal consolidation is seen. There is mild diffuse interstitial prominence. No evidence of pneumothorax. Small left pleural effusion suspected. The cardiomediastinal contour is unremarkable. No acute osseous findings are seen. XR/XR chest 1V IMPRESSION: Mild diffuse interstitial prominence which could reflect mild interstitial edema versus bronchitis. Small left pleural effusion suspected.
[2022-03-23] MEDS: dexAMETHasone sod phosphate 10 MG/ML VIAL IVPUSH (02:07)
[2022-03-23] MEDS: Magnesium Sulfate/H2O 2 GM/50 ML PIGGYBACK IV (02:07)
[2022-03-23] MEDS: Midazolam HCl/PF 2 MG/2 ML VIAL 1 MG IVPUSH (02:08)
[2022-03-23 02:14] LABS: Basophils Absolute Auto 0.1 X10*3/uL (0.0-0.2); Basophils Percent Auto 0.2 % (0-2); Eosinophils Absolute Auto 0.2 X10*3/uL (0.0-0.4); Eosinophils Percent Auto 0.7 % (0-4); Hematocrit 38.6 % (37.0-47.0); Imm Gran Abs Auto 0.14 X10*3/uL (0.00-0.03); Imm Gran Pct Auto 0.5 % (0.0-0.4); Lymphocytes Percent Auto 30.1 % (20-40); MANUAL DIFF FLAG SCAN; Mean Corpuscular HGB Conc 28.5 g/dl (31.0-35.0); Mean Corpuscular Hemoglobin 22.7 pg (27.0-33.0); Mean Corpuscular Volume 79.6 fL (80.0-98.0); Mean Platelet Volume 12.2 fL (9.4-12.3); Monocytes Absolute Auto 1.7 X10*3/uL (0.1-1.2); Monocytes Percent Auto 6.3 % (2-11); Neutrophils Absolute Auto 16.5 x10*3/uL (2.0-8.3); Neutrophils Percent Auto 62.2 % (45-73); Platelet Count 305 X10*3/uL (160-400); Red Blood Count 4.85 X10*6/uL (4.20-5.50); Red Cell Distribution Width 17.6 % (11.0-16.0); SCAN SMEAR FLAG 1; White Blood Count 26.5 X10*3/uL (4.8-10.8)
--- NOTE | 2022-03-23 02:15 | PC.NURSE ---
pt in respiratory distress,respiratory at bedside pt placed on bipap and bedside monitor. Labs drawn, lV line placed and medicated Mar.
[2022-03-23] MEDS: 0.9 % Sodium Chloride 1,000 ML 999 ML IV ×2 (02:19→05:33)
[2022-03-23 02:24] LABS: Venous Blood Gas Refer to POC result
[2022-03-23 02:24] LABS: VBG Base Excess -2.2 mmol/L; VBG HCO3 27 mmol/L (22-26); VBG pCO2 67 mmHg; VBG pH 7.21 (7.32-7.43); VBG pO2 47 mmHg
[2022-03-23 02:34] LABS: SLIDE REVIEW VERIFIED
[2022-03-23 02:35] LABS: Alanine Aminotransferase 17 U/L (0-31); Albumin Level 3.7 g/dL (3.5-5.0); Alkaline Phosphatase 82 U/L (39-117); Anion Gap 18 (12-20); Aspartate Amino Transferase 17 U/L (5-31); Bilirubin Total 0.3 mg/dL (0.0-1.0); Blood Urea Nitrogen 13 mg/dL (9-16); Calcium 8.7 mg/dL (8.4-10.2); Carbon Dioxide 25 mmol/L (22-29); Chloride 100 mmol/L (96-108); Creatinine Clr Calc Pharmacy 50.4; Estimated Glomerular Filt Rate 41; Glucose Random 422 mg/dL (60-115); Lactic Acid 4.8 mmol/L (0.5-2.0); Magnesium 1.9 mg/dL (1.6-2.6); Potassium 4.4 mmol/L (3.3-5.1); Sodium 139 mmol/L (135-145); Total Protein 6.1 g/dL (6.5-8.0)
[2022-03-23] MEDS: Albuterol Sulfate 7.5 MG, Albuterol/Iprat 2.5/0.5MG 3 ML 3 ML INHALE (02:35)
[2022-03-23] MEDS: Insulin Lispro 100 UNIT/ML 3 ML VIAL 12 UNIT SUBCUT (02:43)
--- NOTE | 2022-03-23 03:05 | ED.SOB ---
HPI - SOB/Dyspnea General Chief Complaint: Dyspnea Stated Complaint: asthma attack Time Seen by Provider: 03/23/22 01:57 Source: EMS Mode of arrival: EMS Limitations: no limitations History of Present Illness HPI Narrative: Patient is 51 years old with history of asthma/COPD overlap , diabetes, hypertension last seen was in the ER was 03/18 comes back for severe respiratory distress started prior to arrival , was saturating in high 70s when EMT arrived last 3 times patient went against medical advice from ER patient gasping for air on arrival, denies any fever or chills patient is on prednisone Related Data Home Medications Medication Instructions Recorded Confirmed albuterol sulfate 90 mcg/actuation 2 puff PO Q4H PRN wheezing 12/24/20 03/09/22 aerosol inhaler (ProAir HFA) aspirin 81 mg tablet,delayed 1 tab PO DAILY 12/24/20 03/09/22 release atorvastatin 10 mg tablet 1 tab PO DAILY 12/24/20 03/09/22 fluticasone propionate 115 2 puff inhalation BID 12/24/20 03/09/22 mcg-salmeterol 21 mcg/actuation HFA inhaler (Advair HFA) glipizide 5 mg-metformin 500 mg 2 tab PO BID 12/24/20 03/09/22 tablet albuterol sulfate 2.5 mg/3 mL 2.5 mg inhalation Q4H PRN 07/11/21 03/09/22 (0.083 %) solution for nebulization Respiratory Distress insulin glargine 100 unit/mL (3 12 unit subcut BEDTIME 10/31/21 03/09/22 mL) subcutaneous pen (Lantus Solostar U-100 Insulin) lisinopril 20 1 tab PO DAILY 10/31/21 03/09/22 mg-hydrochlorothiazide 12.5 mg tablet umeclidinium 62.5 mcg/actuation 1 puff PO DAILY 10/31/21 03/09/22 blister powder for inhalation (Incruse Ellipta) montelukast 10 mg tablet 1 tab PO BEDTIME 02/13/22 03/09/22 Previous Rx's Medication Instructions Recorded amlodipine 10 mg tablet 10 mg PO DAILY 30 days #30 tabs 12/27/20 gabapentin 300 mg capsule 600 mg PO BEDTIME #20 caps 11/21/21 azithromycin 250 mg tablet See Rx Instructions PO .COMPLEX #6 03/09/22 tabs furosemide 20 mg tablet (Lasix) 20 mg PO DAILY 3 days #3 tabs 03/09/22 potassium chloride 20 mEq 20 meq PO DAILY 5 days #5 tabs 03/09/22 tablet,extended release prednisone 20 mg tablet 40 mg PO DAILY 5 days #10 tabs 03/09/22 albuterol sulfate 2.5 mg/3 mL 2.5 mg (3 mL) inhalation QID PRN 03/15/22 (0.083 %) solution for nebulization bronchospasm #90 mL prednisone 20 mg tablet 20 mg PO BID #8 tabs 03/15/22 cefuroxime axetil 500 mg tablet 500 mg PO BID #20 tabs 03/17/22 codeine 10 mg-guaifenesin 100 mg/5 10 ml PO Q6H PRN cough #237 mL 03/17/22 mL oral liquid doxycycline hyclate 100 mg tablet 100 mg PO BID #20 tabs 03/17/22 Allergies Allergy/AdvReac Type Severity Reaction Status Date / Time Penicillins [PENICILLINS] Allergy Severe RASH Verified 02/14/22 07:59 amoxicillin [AMOXICILLIN] Allergy Intermediate HIVES Verified 02/11/22 15:09 Review of Systems Review of Systems: Yes all other systems are reviewed and are negative PMF Past Medical History Medical History Asthma Atherosclerotic cardiovascular disease Atrial tachycardia COPD (chronic obstructive pulmonary disease) COVID-19 vaccine series completed Diabetes Diabetic toe ulcer Essential hypertension GERD (gastroesophageal reflux disease) Hypertension Osteomyelitis Surgical History History of esophagogastroduodenoscopy (EGD) History of toe surgery (09/22/21) Family History Family History Mother Hx of CABG Sister CAD (coronary artery disease) Social History Social History Household Members: Family Housing: Apartment Do you presently have visiting nurse or other home services: Yes Alcohol intake: never Patient Tobacco Use Status: Current everyday Tobacco user Tobacco use type: Cigarette Cigarettes Per Day: 1 Years Smoked: 43 e-Cigarette/Vaping Use: Never Used Second Hand Smoke Exposure: Yes Advance Directives: No Advance Directives Information Provided: No Advance Directives Date on File: 12/28/20 Patient : No service: No Current occupational status: unemployed Physical Exam Vital Signs: Vital Signs: Last Vital Signs Temp 97.9 F 03/23/22 05:35 Pulse 120 H 03/23/22 07:28 Resp 31 H 03/23/22 07:29 BP 144/77 H 03/23/22 07:28 Pulse Ox 97 03/23/22 07:28 O2 Del Method 03/23/22 07:28 O2 Flow Rate 18 03/23/22 03:51 BMI result Body Mass Index 25.8 Appearance: Alert. Oriented X3. No acute distress. Severe respiratory distress Eyes: PERRLA, No Nystagmus ENT: Pharynx normal. Oral Mucosa moist Neck: Normal inspection. Neck supple. CVS: Normal heart rate and rhythm. Pulses normal. Respiratory: See respiratory distress. decreased air entry bilateral with wheezing Abdomen: Soft and nontender. Bowel sounds are present, no mass palpable, no CVA tenderness Skin: Skin warm and dry. Normal skin color. Normal skin turgor. Extremities: No lower extremity edema. No calf tenderness Neuro: Oriented X 3. No motor deficit. No sensory deficit.No cerebellar signs , cranial nerves II-XII intact MDM - SOB/Dyspnea MDM Narrative Medical decision making narrative: 6 am ::Patient with severe COPD/asthma overlap syndrome with CHF with hyperglycemia been here multiple times previous blood cultures were negative also initial lactic acid level is elevated secondary to albuterol treatments which improved chest x-ray negative for pneumonia but showed mild diffuse interstitial prominence patient received IV fluids and IV antibiotics as suspected infection at 05:00 Patient was placed on BiPAP initially improved on 5 L Ventimask patient is saturating 95% again at 07:30 patient became more tachypneic and short of breath placed back on BiPAP , tachycardia rate 140 sinus tachycardia case discussed with Dr. cleveland will admit patient to ICU advised to do CT chest and respiratory panel. Differential Diagnosis Differential diagnosis: Likely acute exacerbation of chronic obstructive airways disease, congestive heart failure and pneumonia Medical Records Attestation: I reviewed the patient's medical records. Lab Data Attestation: I reviewed the patient's lab results. Result diagrams: 03/23/22 02:05 03/23/22 02:05 Labs: Lab Results 03/23/22 03/23/22 03/23/22 Range/Units 02:05 02:05 02:05 WBC 26.5 H (4.8-10.8) X10*3/uL RBC 4.85 (4.20-5.50) X10*6/uL Hgb 11.0 L (12.0-16.0) g/dl Hct 38.6 (37.0-47.0) % MCV 79.6 L (80.0-98.0) fL MCH 22.7 L (27.0-33.0) pg MCHC 28.5 L (31.0-35.0) g/dl RDW 17.6 H (11.0-16.0) % Plt Count 305 D (160-400) X10*3/uL MPV 12.2 (9.4-12.3) fL Immature Gran % (Auto) 0.5 H (0.0-0.4) % Neut % (Auto) 62.2 (45-73) % Lymph % (Auto) 30.1 (20-40) % [place] % (Auto) 6.3 (2-11) % Eos % (Auto) 0.7 (0-4) % Baso % (Auto) 0.2 (0-2) % Lymph # (Auto) 8.0 H (1.2-4.9) X10*3/uL [place] # (Auto) 1.7 H (0.1-1.2) X10*3/uL Eos # (Auto) 0.2 (0.0-0.4) X10*3/uL Baso # (Auto) 0.1 (0.0-0.2) X10*3/uL Abs Immat Gran (auto) 0.14 H (0.00-0.03) X10*3/uL Absolute Neuts (auto) 16.5 H (2.0-8.3) x10*3/uL Absolute Nucleated RBC 0.000 (0.0-0.012) X10*3/uL Nucleated RBC % (auto) 0.0 (0.0-0.2) /100WBC Smear Tech's Comments VERIFIED VBG pH (7.32-7.43) VBG pCO2 mmHg VBG pO2 mmHg VBG HCO3 (22-26) mmol/L VBG O2 Saturation % VBG Base Excess mmol/L Sodium 139 (135-145) mmol/L Potassium 4.4 (3.3-5.1) mmol/L Chloride 100 (96-108) mmol/L Carbon Dioxide 25 (22-29) mmol/L Anion Gap 18 (12-20) BUN 13 (9-16) mg/dL Creatinine 1.36 (0.5-1.4) mg/dL Estim Creat Clear Calc 50.4 Estimated GFR 41 POC Glucose (60-115) mg/dL Random Glucose 422 H* D (60-115) mg/dL Lactic Acid 4.8 H* (0.5-2.0) mmol/L Lactic Acid F/U @ 2Hr (0.5-2.0) mmol/L Calcium 8.7 (8.4-10.2) mg/dL Magnesium 1.9 (1.6-2.6) mg/dL Total Bilirubin 0.3 (0.0-1.0) mg/dL AST 17 D (5-31) U/L ALT 17 (0-31) U/L Alkaline Phosphatase 82 (39-117) U/L Total Protein 6.1 L (6.5-8.0) g/dL Albumin 3.7 (3.5-5.0) g/dL 03/23/22 03/23/22 03/23/22 Range/Units 02:17 04:25 04:42 WBC (4.8-10.8) X10*3/uL RBC (4.20-5.50) X10*6/uL Hgb (12.0-16.0) g/dl Hct (37.0-47.0) % MCV (80.0-98.0) fL MCH (27.0-33.0) pg MCHC (31.0-35.0) g/dl RDW (11.0-16.0) % Plt Count (160-400) X10*3/uL MPV (9.4-12.3) fL Immature Gran % (Auto) (0.0-0.4) % Neut % (Auto) (45-73) % Lymph % (Auto) (20-40) % [place] % (Auto) (2-11) % Eos % (Auto) (0-4) % Baso % (Auto) (0-2) % Lymph # (Auto) (1.2-4.9) X10*3/uL [place] # (Auto) (0.1-1.2) X10*3/uL Eos # (Auto) (0.0-0.4) X10*3/uL Baso # (Auto) (0.0-0.2) X10*3/uL Abs Immat Gran (auto) (0.00-0.03) X10*3/uL Absolute Neuts (auto) (2.0-8.3) x10*3/uL Absolute Nucleated RBC (0.0-0.012) X10*3/uL Nucleated RBC % (auto) (0.0-0.2) /100WBC Smear Tech's Comments VBG pH 7.21 L (7.32-7.43) VBG pCO2 67 mmHg VBG pO2 47 mmHg VBG HCO3 27 H (22-26) mmol/L VBG O2 Saturation 65.0 % VBG Base Excess -2.2 mmol/L Sodium (135-145) mmol/L Potassium (3.3-5.1) mmol/L Chloride (96-108) mmol/L Carbon Dioxide (22-29) mmol/L Anion Gap (12-20) BUN (9-16) mg/dL Creatinine (0.5-1.4) mg/dL Estim Creat Clear Calc Estimated GFR POC Glucose 275 H (60-115) mg/dL Random Glucose (60-115) mg/dL Lactic Acid (0.5-2.0) mmol/L Lactic Acid F/U @ 2Hr 2.2 H* (0.5-2.0) mmol/L Calcium (8.4-10.2) mg/dL Magnesium (1.6-2.6) mg/dL Total Bilirubin (0.0-1.0) mg/dL AST (5-31) U/L ALT (0-31) U/L Alkaline Phosphatase (39-117) U/L Total Protein (6.5-8.0) g/dL Albumin (3.5-5.0) g/dL 03/23/22 Range/Units 04:44 WBC (4.8-10.8) X10*3/uL RBC (4.20-5.50) X10*6/uL Hgb (12.0-16.0) g/dl Hct (37.0-47.0) % MCV (80.0-98.0) fL MCH (27.0-33.0) pg MCHC (31.0-35.0) g/dl RDW (11.0-16.0) % Plt Count (160-400) X10*3/uL MPV (9.4-12.3) fL Immature Gran % (Auto) (0.0-0.4) % Neut % (Auto) (45-73) % Lymph % (Auto) (20-40) % [place] % (Auto) (2-11) % Eos % (Auto) (0-4) % Baso % (Auto) (0-2) % Lymph # (Auto) (1.2-4.9) X10*3/uL [place] # (Auto) (0.1-1.2) X10*3/uL Eos # (Auto) (0.0-0.4) X10*3/uL Baso # (Auto) (0.0-0.2) X10*3/uL Abs Immat Gran (auto) (0.00-0.03) X10*3/uL Absolute Neuts (auto) (2.0-8.3) x10*3/uL Absolute Nucleated RBC (0.0-0.012) X10*3/uL Nucleated RBC % (auto) (0.0-0.2) /100WBC Smear Tech's Comments VBG pH 7.35 (7.32-7.43) VBG pCO2 38 mmHg VBG pO2 75 mmHg VBG HCO3 21 L (22-26) mmol/L VBG O2 Saturation 94.0 % VBG Base Excess -3.3 mmol/L Sodium (135-145) mmol/L Potassium (3.3-5.1) mmol/L Chloride (96-108) mmol/L Carbon Dioxide (22-29) mmol/L Anion Gap (12-20) BUN (9-16) mg/dL Creatinine (0.5-1.4) mg/dL Estim Creat Clear Calc Estimated GFR POC Glucose (60-115) mg/dL Random Glucose (60-115) mg/dL Lactic Acid (0.5-2.0) mmol/L Lactic Acid F/U @ 2Hr (0.5-2.0) mmol/L Calcium (8.4-10.2) mg/dL Magnesium (1.6-2.6) mg/dL Total Bilirubin (0.0-1.0) mg/dL AST (5-31) U/L ALT (0-31) U/L Alkaline Phosphatase (39-117) U/L Total Protein (6.5-8.0) g/dL Albumin (3.5-5.0) g/dL ECG Data Attestation: I personally reviewed and interpreted this ECG as follows: Interpretation: Sinus tachycardia 104 for progression of R-wave in anterior leads no acute ischemic changes no acute ischemia Critical Care Time Critical Care Time Critical Care Time: Yes Total Critical Care Time: 65 Attestation: I spent 65 minutes of critical care, with interventions, assessments, speaking to patient, consultants, and family. Discharge Plan Discharge Clinical Impression: COPD (chronic obstructive pulmonary disease), Acute respiratory failure with hypoxia, Congestive heart failure Patient Disposition: Admitted As Inpatient
--- NOTE | 2022-03-23 03:12 | PC.NURSE ---
Callous with open cracks noted on both feet. 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 8cm x 1cm x 0.5cm wound noted on the bottom of the left foot. Wound bed is purulent, pink/red, inflammed with clear drainage. Bilateral petal pulses present via doppler. Pt able to move lower extremities. aware.
--- NOTE | 2022-03-23 04:13 | PC.NURSE ---
Pt resting quietly. Continues on BiPap 18L/min. O2 sat 100%. RR 13 with equal chest rises. NSR on monitor with HR 94. 1L NS completed. Will continue to monitor.
[2022-03-23 04:20] LABS: Reflex Lactate? Lactic Acid Added
[2022-03-23 04:31] LABS: Glucose, Whole Blood 275 mg/dL (60-115)
[2022-03-23 04:50] LABS: Venous Blood Gas Refer to POC result
[2022-03-23 04:51] LABS: VBG Base Excess -3.3 mmol/L; VBG HCO3 21 mmol/L (22-26); VBG pCO2 38 mmHg; VBG pH 7.35 (7.32-7.43); VBG pO2 75 mmHg
[2022-03-23 04:59] LABS: ~Lactic Acid-LAB USE ONLY 2.2 mmol/L (0.5-2.0)
--- NOTE | 2022-03-23 05:15 | PC.NURSE ---
Respiratory at bedside. Switching current mask to a venti mask per Dr. Rodriguez.
[2022-03-23] MEDS: cefTRIAXone sodium 1 GM in 0.9 % Sodium Chloride 50 ML IV (05:33)
--- NOTE | 2022-03-23 05:40 | PC.NURSE ---
Pt opens eyes to verbal stimuli. Non verbal at this time. O2 sat 97% on 5L via oxy mask. RR 12. Breaths are even and unlabored with equal chest rises. NSR on monitor with HR 91. No apparent distress noted. MD aware. Will continue to monitor pt.
[2022-03-23 06:46] LABS: Reflex Lactate? 2 Y
[2022-03-23] MEDS: Furosemide 20 MG/2 ML VIAL 40 MG IVPUSH (07:19)
[2022-03-23] MEDS: Albuterol Sulfate 2.5 MG/0.5 ML VIAL.NEB 5 MG INHALE (07:27)
--- NOTE | 2022-03-23 07:36 | PC.NURSE ---
back on bipap, albuterol given, resting w eyes closed and appears more comfortable, st on monitor 120's
--- NOTE | 2022-03-23 07:50 | ECG_ITS ---
Test Reason : SOB Blood Pressure : / mmHG Vent. Rate : 144 BPM Atrial Rate : 144 BPM P-R Int : 122 ms QRS Dur : 080 ms QT Int : 276 ms P-R-T Axes : 073 067 091 degrees QTc Int : 427 ms Poor data quality Sinus tachycardia Anterior infarct (cited on or before 15-MAR-2022) T wave abnormality, consider inferior ischemia Abnormal ECG When compared with ECG of 17-MAR-2022 01:51, Nonspecific T wave abnormality is now evident Inferior leads Heart rate has increased by 40 Referred By: Matti Lindquist Electronically Signed By:MAXINE BETANCUR MD
[2022-03-23 08:40] LABS: ~Lactic Acid-LAB USE ONLY 1.7 mmol/L (0.5-2.0)
--- NOTE | 2022-03-23 08:44 | PHA.MEDREC ---
Pharmacy Consult ? Medication Reconciliation Pharmacy has completed the medication reconciliation. Patient was dozing off, patient was also on CPAP. Tried to get as much information, confirmed list against claim history.
--- NOTE | 2022-03-23 08:47 | ECG_ITS ---
Test Reason : cp Blood Pressure : / mmHG Vent. Rate : 107 BPM Atrial Rate : 107 BPM P-R Int : 140 ms QRS Dur : 080 ms QT Int : 364 ms P-R-T Axes : 079 043 102 degrees QTc Int : 485 ms Sinus tachycardia Low voltage QRS Intra-ventricular conduction delay Abnormal ECG When compared with ECG of 23-MAR-2022 02:01, T wave inversion no longer evident in Inferior leads Heart rate has decreased Referred By: Matti Lindquist Electronically Signed By:MAXINE BETANCUR MD
[2022-03-23 09:12] LABS: Amphetamine Screen Urine Not Detected (Not Detect); Barbiturates, Urine Not Detected (Not Detect); Benzodiazepines Screen Urine POSITIVE (Not Detect); Cannabinoid Screen Urine Not Detected (Not Detect); Cocaine Screen Urine Not Detected (Not Detect); Fentanyl, urine Not Detected (Not Detect); Opiate Screen Urine Not Detected (Not Detect); Phencyclidine Screen Urine Not Detected (Not Detect)
--- NOTE | 2022-03-23 09:23 | PC.NURSE ---
ct complete, pt tolerated laying flat, mainly slept, st on monitor, skin wpd
[2022-03-23 09:50] LABS: B Type Natriuretic Peptide 1539 pg/mL (<100)
--- NOTE | 2022-03-23 09:56 | P.CONCC_ITS ---
History of Present Illness Data of Consult Service Date: 03/23/22 Requesting physician: Suad Garnett Primary Care Provider: Unknown Physician HPI Reason for consult: Dyspnea and hypoxemia 51-year-old female smoker with severe COPD and oxygen dependence who was now return to the emergency room for the 3rd time in approximately a week and half 1st time on March 15 and then felt better went home signed out then on March 17 and then again today on the and this time when she became extreme and was bolt upright and working extremely hard to breathe and hypoxic there was felt by the ER physician after she received 2 L of fluid that she was in pulmonary edema and then got IV Lasix diuresed and started to feel better and was also comforted by the BiPAP device generating huge volumes of almost 1200 cc for tidal volume with each breath but no diaphragmatic effort and at this point respiratory rate was down to approximately 18 no evidence of prolonged expiratory time and I looked at her chest her EKG and she has had waxing waning anterolateral ST-T changes with an underlying nonspecific IVCD normal sinus rhythm diminished R-wave progression V1 and V2 which could just be clockwise rotation from her right ventricle and possibly small degree of to lead V1 V2 anterior septal lead ST elevation but each time she has exacerbated and then got better she her BNP went up considerably and her troponin did this time troponin is 400 BNP is 1500 and it looks indeed now like this is probably flash pulmonary edema farm recurrent unstable ischemia and this is now a and almost 8 day issue so I think it would be appropriate to heparinize start on aspirin if blood pressure permits and she did have IVC dilatation with lack of inspiratory collapse so despite the blood pressure of 97 systolic the might be room for IV nitro for symptoms of should they recur but at this point she might be weanable from the BiPAP and consideration for cardiac catheterization should be made Review of Systems Review of Systems: No evidence of fever nor sputum production Yes all other systems are reviewed and are negative [facility] Past Medical History Medical History Asthma Atherosclerotic cardiovascular disease Atrial tachycardia COPD (chronic obstructive pulmonary disease) COVID-19 vaccine series completed Diabetes Diabetic toe ulcer Essential hypertension GERD (gastroesophageal reflux disease) Hypertension Osteomyelitis Family History Family History Mother Hx of CABG Sister CAD (coronary artery disease) Surgical History Surgical History History of esophagogastroduodenoscopy (EGD) History of toe surgery (09/22/21) Social History Social History Household Members: Family Housing: Apartment Do you presently have visiting nurse or other home services: Yes Alcohol intake: never Patient Tobacco Use Status: Current everyday Tobacco user Tobacco use type: Cigarette Cigarettes Per Day: 1 Years Smoked: 43 e-Cigarette/Vaping Use: Never Used Second Hand Smoke Exposure: Yes Advance Directives: No Advance Directives Information Provided: No Advance Directives Date on File: 12/28/20 Patient : No service: No Current occupational status: unemployed Meds Allergies Allergy/AdvReac Type Severity Reaction Status Date / Time Penicillins [PENICILLINS] Allergy Severe RASH Verified 02/14/22 07:59 amoxicillin [AMOXICILLIN] Allergy Intermediate HIVES Verified 02/11/22 15:09 Active Medications: Current Medications Heparin Sodium (Porcine) (Heparin Sodium,Porcine 5,000 Unit/Ml Vial) 5,800 unit 80 unit/kg (5800 unit) IVPUSH PROTOCOL BOLUS PRN; Protocol PRN Reason: 80 unit/kg - Heparin Protocol Heparin Sodium (Porcine) (Heparin Sodium,Porcine 5,000 Unit/Ml Vial) 2,900 unit 40 unit/kg (2900 unit) IVPUSH PROTOCOL BOLUS PRN; Protocol PRN Reason: 40 unit/kg - Heparin Protocol Heparin Sodium/Sodium Chloride (Heparin Sodium,Porcine/1/2ns) 25,000 unit in 250 mls @ 0 mls/hr IVCONT .Q0M MÓNICA; Protocol Home Medications Medication Instructions Recorded Confirmed Last Taken Type albuterol sulfate 90 mcg/actuation 2 puff PO Q4H PRN wheezing 12/24/20 03/23/22 10/30/21 History aerosol inhaler (ProAir HFA) aspirin 81 mg tablet,delayed 1 tab PO DAILY 12/24/20 03/23/22 02/13/22 History release atorvastatin 10 mg tablet 1 tab PO DAILY 12/24/20 03/23/22 02/11/22 History fluticasone propionate 115 2 puff inhalation BID 12/24/20 03/23/22 02/11/22 History mcg-salmeterol 21 mcg/actuation HFA inhaler (Advair HFA) glipizide 5 mg-metformin 500 mg 2 tab PO BID 12/24/20 03/23/22 02/11/22 History tablet lisinopril 20 1 tab PO DAILY 10/31/21 03/23/22 02/13/22 History mg-hydrochlorothiazide 12.5 mg tablet umeclidinium 62.5 mcg/actuation 1 puff PO DAILY 10/31/21 03/23/22 10/30/21 History blister powder for inhalation (Incruse Ellipta) montelukast 10 mg tablet 1 tab PO BEDTIME 02/13/22 03/23/22 02/13/22 History insulin glargine 100 unit/mL (3 20 unit subcut BEDTIME 03/23/22 03/23/22 Unknown History mL) subcutaneous pen (Lantus Solostar U-100 Insulin) Physical Exam Vital Signs: Vital Signs: Last Vital Signs Temp 97.6 F 03/23/22 08:54 Pulse 108 H 03/23/22 08:54 Resp 14 03/23/22 08:54 BP 97/54 L 03/23/22 08:54 Pulse Ox 98 03/23/22 08:54 O2 Del Method 03/23/22 08:54 O2 Flow Rate 18 03/23/22 03:51 BMI result Body Mass Index 25.8 She was awake alert oriented nonfocal neurologically Appear to be hyperventilating but no real use of of accessory muscles with excellent tidal volumes no use of diaphragmatic effort for expiration Diminished bilateral breath sounds no adventitious sounds Cardiac exam by bedside echo and the might have been some mild relative hypokinesis of the apex of the ventricle compared to the base but nonetheless there was no area of akinesis that was noted and left ventricular end-diastolic and systolic volumes were normal aortic valve opens adequately no significant primary valve or pericardial disease but were awaiting assessment of diastolic function Abdomen benign no organomegaly Warm well perfused no livedo Results Labs CBC & Chem 7: 03/23/22 02:05 03/23/22 02:05 Labs: Short CBC 03/23/22 Range/Units 02:05 WBC 26.5 H (4.8-10.8) X10*3/uL Hgb 11.0 L (12.0-16.0) g/dl Hct 38.6 (37.0-47.0) % Plt Count 305 D (160-400) X10*3/uL BMP 03/23/22 02:05 Sodium 139 Potassium 4.4 Chloride 100 Carbon Dioxide 25 BUN 13 Creatinine 1.36 Calcium 8.7 Liver Function 03/23/22 Range/Units 02:05 Total Bilirubin 0.3 (0.0-1.0) mg/dL AST 17 D (5-31) U/L ALT 17 (0-31) U/L Alkaline Phosphatase 82 (39-117) U/L Albumin 3.7 (3.5-5.0) g/dL Assessment and Plan (1) Acute respiratory failure with hypoxia: Status: Acute (2) Congestive heart failure: Status: Acute (3) Hyperglycemia: Status: Acute (4) IRAIS (acute kidney injury): Status: Acute (5) COPD (chronic obstructive pulmonary disease): Status: Acute (6) Asthma: Status: Acute (7) Unstable angina pectoris: Status: Acute (8) Pulmonary edema with left heart failure: Status: Acute Plan So 3 recurrences wall with elevated BNP as well as troponin with waxing waning ST-T changes in the anterolateral distribution and CT scan that looks like post diuresis mild residual of pulmonary edema as well with no element of COPD exacerbation nor of pulmonary infection so I do believe were dealing with a crescendo angina picture whereby she should be anticoagulated with heparin and aspirin and consideration for transfer for cardiac catheterization
[2022-03-23 10:26] LABS: INTERNATIONAL NORM RATIO 1.1 (0.9-1.1); Prothrombin Time 12.3 SEC (10.0-13.1)
--- NOTE | 2022-03-23 10:37 | PC.NURSE ---
pt alert and oriented x 4, both dr rodriguez and myself separately discussed risks of leaving [facility], pt adamant about leaving and does not share a reason, pt informed that she will probably if she leaves but signed [facility] paperwork, at this moment she denies sob and appears comfortable
[2022-03-23 10:41] LABS: PTT Heparin Drip 23.2 SEC (53-77.9); Partial Thromboplastin Time 22.7 SEC (26.0-36.4)
[2022-03-23 11:22] LABS: Adenovirus PCR Not Detected (Not Detect.); Bordetella parapertussis PCR Not Detected (Not Detect.); Bordetella pertussis PCR Not Detected (Not Detect.)
[2022-03-23 11:23] LABS: Chlamydia pneumoniae PCR Not Detected (Not Detect.); Coronavirus 229E PCR Not Detected (Not Detect.); Coronavirus HKU1 PCR Not Detected (Not Detect.); Coronavirus NL63 PCR Not Detected (Not Detect.); Coronavirus OC43 PCR Not Detected (Not Detect.); Human metapneumovirus PCR Not Detected (Not Detect.); Influenza A PCR Not Detected (Not Detect.); Influenza B PCR Not Detected (Not Detect.); Mycoplasma pneumoniae PCR Not Detected (Not Detect.); Parainfluenza 1 PCR Not Detected (Not Detect.); Parainfluenza 2 PCR Not Detected (Not Detect.); Parainfluenza 3 PCR Not Detected (Not Detect.); Parainfluenza 4 PCR Not Detected (Not Detect.); RSV PCR Not Detected (Not Detect.); Rhino/Enterovirus PCR Not Detected (Not Detect.); SARS-CoV-2 PCR Not Detected (Not Detect.)
[2022-03-23 12:27] LABS: Troponin-I High Sensitivity 411.7 ng/L (<3.5-17.0)
== END 2022-03-23 10:41 | disposition left against medical advice (07) ==
PROVIDERS: Emergency Medicine; Emergency Provider Internal Medicine
DX: J44.9 Chronic obstructive pulmonary disease, unspecified (principal); I50.9 Heart failure, unspecified; I50.1 Left ventricular failure, unspecified; I20.0 Unstable angina; N17.9 Acute kidney failure, unspecified; R73.9 Hyperglycemia, unspecified; J96.01 Acute respiratory failure with hypoxia; R07.89 Other chest pain; Z79.899 Other long term (current) drug therapy; Z20.822 Contact with and (suspected) exposure to COVID-19
CPT/HCPCS: 36415; 71045; 71250; 80053; 80307; 82803; 82947; 83605; 83735; 83880; 84484; 85025; 85610; 85730; 87040; 87633; 93005; 94640; 94660; 96361; 96365; 96375; 99285; J0696; J1100; J1940; J2250; J3475; Q9957

== ENCOUNTER 2022-04-17 07:06 | Emergency (ER) | payer MEDICAID, SELFPAY ==
--- NOTE | ~2022-04-17 | XR_ITS ---
EXAMINATION: XR CHEST CLINICAL INFORMATION: Cough. Back pain. COMPARISON: None TECHNIQUE: PA and lateral views of the chest. FINDINGS: No significant abnormality is noted involving the heart, lungs, mediastinum, bony thorax or soft tissues. XR/XR chest 2V IMPRESSION: Normal chest PA and lateral.
--- NOTE | ~2022-04-17 | XR_ITS ---
EXAMINATION: XR LUMBOSACRAL SPINE CLINICAL INFORMATION: Back pain. COMPARISON: None TECHNIQUE: Three views of the lumbosacral spine. FINDINGS: The vertebral bodies and posterior elements are normal. The disc spaces are preserved and the vertebral alignment is normal. The paraspinal soft tissues appear unremarkable. Mildly atherosclerotic aorta and iliac arteries. XR/XR lumbar spine 2-3V IMPRESSION: Unremarkable examination.
[2022-04-17 08:24] VITALS: BP 143/69; PULSE 112; RESP 20; TEMP 36.1; O2SAT 99; BMI 27.4
--- NOTE | 2022-04-17 09:48 | ECG_ITS ---
Test Reason : cough/sob Blood Pressure : / mmHG Vent. Rate : 099 BPM Atrial Rate : 099 BPM P-R Int : 156 ms QRS Dur : 082 ms QT Int : 378 ms P-R-T Axes : 076 039 090 degrees QTc Int : 485 ms Normal sinus rhythm Nonspecific ST abnormality Anteroseptal leads Low voltage QRS Abnormal ECG When compared with ECG of 23-MAR-2022 08:05, No significant change was found Referred By: Bethany Clay Electronically Signed By:MAXINE BETANCUR MD
[2022-04-17] MEDS: Albuterol Sulfate 2.5 MG, Albuterol Sulfate (0.083%) 2.5 MG 5 MG INHALE (10:02)
[2022-04-17 10:03] VITALS: PULSE 104; RESP 20; O2SAT 97
[2022-04-17] MEDS: Cyclobenzaprine HCl 10 MG TABLET PO (11:14)
[2022-04-17] MEDS: methylPREDNISolone Sod Succ 125 MG/2 ML VIAL IVPUSH (11:19)
[2022-04-17 11:26] LABS: MANUAL DIFF FLAG NO
[2022-04-17 11:30] VITALS: BP 150/79; PULSE 99; RESP 16; TEMP 36.8; O2SAT 98
[2022-04-17 11:34] LABS: Basophils Percent Auto 0.3 % (0-2); Eosinophils Absolute Auto 0.1 X10*3/uL (0.0-0.4); Eosinophils Percent Auto 0.9 % (0-4); Hematocrit 34.6 % (37.0-47.0); Hemoglobin 10.2 g/dl (12.0-16.0); Imm Gran Abs Auto 0.03 X10*3/uL (0.00-0.03); Imm Gran Pct Auto 0.5 % (0.0-0.4); Lymphocytes Absolute Auto 1.3 X10*3/uL (1.2-4.9); Lymphocytes Percent Auto 22.3 % (20-40); Mean Corpuscular HGB Conc 29.5 g/dl (31.0-35.0); Mean Corpuscular Hemoglobin 22.3 pg (27.0-33.0); Mean Corpuscular Volume 75.5 fL (80.0-98.0); Mean Platelet Volume 11.1 fL (9.4-12.3); Monocytes Absolute Auto 0.3 X10*3/uL (0.1-1.2); Monocytes Percent Auto 5.5 % (2-11); Neutrophils Absolute Auto 4.1 x10*3/uL (2.0-8.3); Neutrophils Percent Auto 70.5 % (45-73); Platelet Count 261 X10*3/uL (160-400); Red Blood Count 4.58 X10*6/uL (4.20-5.50); White Blood Count 5.8 X10*3/uL (4.8-10.8)
[2022-04-17 11:40] LABS: INTERNATIONAL NORM RATIO 1.2 (0.9-1.1); Prothrombin Time 13.3 SEC (10.0-13.1)
[2022-04-17 11:48] LABS: COVID-19 Test Negative (Negative); IDNOW Serial# 9DB6401D
[2022-04-17 11:49] LABS: Influenza A Negative (Negative); Influenza B2 Negative (Negative)
--- NOTE | 2022-04-17 11:59 | ED.GENADULT ---
HPI - General Adult General Chief complaint: Back Pain/Injury Stated complaint: back pain Time Seen by Provider: 04/17/22 09:00 Source: patient Mode of arrival: ambulatory Limitations: no limitations History of Present Illness HPI narrative: 51-year-old female with a past medical history of asthma/ COPD overlap, diabetes, hypertension who had an MA and had a cardiac catheterization at [facility] on 03/23/2022 after she was transferred from being here is presenting today with complaints of mid back pain for the past few days worse today. She reports that she is also having some chills, fatigue, malaise, cough, sputum production with yellow/ green colored sputum with wheezing. She reports her back pain is worse with this cough/ wheezing and sputum production. She denies any measured fevers, dizziness, headaches, neck pain / stiffness, trouble swallowing, chest pain or shortness of breath, dyspnea on exertion, orthopnea, palpitations, paresthesias, nausea/ vomiting/ diarrhea constipation, black or bloody stools, abdominal pain, flank pain, dysuria, hematuria, abnormal vaginal discharge, recent travel or sick contacts that she is aware of or any other symptoms complaints or concerns at this time. MD complaint: Cough/wheezing/back pain Onset (ago): day(s) ( past few days worse today) Related Data Home Medications Medication Instructions Recorded Confirmed albuterol sulfate 90 mcg/actuation 2 puff PO Q4H PRN wheezing 12/24/20 03/23/22 aerosol inhaler (ProAir HFA) aspirin 81 mg tablet,delayed 1 tab PO DAILY 12/24/20 03/23/22 release atorvastatin 10 mg tablet 1 tab PO DAILY 12/24/20 03/23/22 fluticasone propionate 115 2 puff inhalation BID 12/24/20 03/23/22 mcg-salmeterol 21 mcg/actuation HFA inhaler (Advair HFA) glipizide 5 mg-metformin 500 mg 2 tab PO BID 12/24/20 03/23/22 tablet lisinopril 20 1 tab PO DAILY 10/31/21 03/23/22 mg-hydrochlorothiazide 12.5 mg tablet umeclidinium 62.5 mcg/actuation 1 puff PO DAILY 10/31/21 03/23/22 blister powder for inhalation (Incruse Ellipta) montelukast 10 mg tablet 1 tab PO BEDTIME 02/13/22 03/23/22 insulin glargine 100 unit/mL (3 20 unit subcut BEDTIME 03/23/22 03/23/22 mL) subcutaneous pen (Lantus Solostar U-100 Insulin) Previous Rx's Medication Instructions Recorded amlodipine 10 mg tablet 10 mg PO DAILY 30 days #30 tabs 12/27/20 gabapentin 300 mg capsule 600 mg PO BEDTIME #20 caps 11/21/21 albuterol sulfate 2.5 mg/3 mL 2.5 mg (3 mL) inhalation QID PRN 03/15/22 (0.083 %) solution for nebulization bronchospasm #90 mL codeine 10 mg-guaifenesin 100 mg/5 10 ml PO Q6H PRN cough #237 mL 03/17/22 mL oral liquid doxycycline hyclate 100 mg tablet 100 mg PO BID #20 tabs 03/17/22 albuterol sulfate 90 mcg/actuation 1 inh inhalation QID PRN shortness 04/17/22 aerosol inhaler of breath or wheezing #8.5 grams azithromycin 500 mg tablet See Rx Instructions PO .COMPLEX #3 04/17/22 tabs benzonatate 100 mg capsule 100 mg PO BID PRN cough #14 caps 04/17/22 cyclobenzaprine 10 mg tablet 10 mg PO Q8H #14 tabs 04/17/22 prednisone 20 mg tablet 40 mg PO DAILY Asthma/COPD 04/17/22 exacerbation 5 days #10 tabs Allergies Allergy/AdvReac Type Severity Reaction Status Date / Time Penicillins [PENICILLINS] Allergy Severe RASH Verified 02/14/22 07:59 amoxicillin [AMOXICILLIN] Allergy Intermediate HIVES Verified 02/11/22 15:09 codeine Allergy Itching Verified 04/17/22 12:14 Review of Systems Review of Systems: Constitutional : No trauma, No Weight loss, No Fever, No Chills, ENT/Mouth : No Hearing loss, No Ear Pain, No Nasal Congestion, No Sinus Pain, No Hoarseness, No sore throat, No Rhinorrhea, No Swallowing Difficulty Cardiovascular : No Chest Pain, No SOB Respiratory : + Cough, + Wheezing, + Sputum production, No Dyspnea Gastrointestinal : No Nausea, No Vomiting, No Diarrhea, No abdominal Pain, No Hematochezia, No Melena Genitourinary : No Dysuria, No Urinary Frequency, No Hematuria, No Urinary or Bowel Incontinence/retention Musculoskeletal : + Back pain, No neck pain, No joint stiffness, No joint swelling Skin : No Skin Lesions, No rash or signs of infection Neuro : No Weakness, No radiation, No Numbness, No Paresthesias, No headache, no loss of bowel or bladder incontinence, no saddle anesthesia Denies history of IV drug usage. Yes all other systems are reviewed and are negative PMFSH Past Medical History Attestation statement: The following information was validated with the patient. Source: old records reviewed, obtained from family and nursing notes reviewed Medical History Asthma Atherosclerotic cardiovascular disease Atrial tachycardia COPD (chronic obstructive pulmonary disease) COVID-19 vaccine series completed Diabetes Diabetic toe ulcer Essential hypertension GERD (gastroesophageal reflux disease) Hypertension Osteomyelitis Surgical History History of esophagogastroduodenoscopy (EGD) History of toe surgery (09/22/21) Family History Family History Mother Hx of CABG Sister CAD (coronary artery disease) Social History Social History Household Members: Family Housing: Apartment Do you presently have visiting nurse or other home services: Yes Alcohol intake: never Patient Tobacco Use Status: Current everyday Tobacco user Tobacco use type: Cigarette Cigarettes Per Day: 1 Years Smoked: 43 e-Cigarette/Vaping Use: Never Used Second Hand Smoke Exposure: Yes Advance Directives: No Advance Directives Information Provided: No Advance Directives Date on File: 12/28/20 service: No Current occupational status: unemployed Physical Exam ED Vital Signs: Vital Signs - 24 hr 04/17/22 08:24 04/17/22 10:03 04/17/22 11:30 Temperature 97.0 F 98.3 F Pulse Rate 112 H 104 H 99 Respiratory Rate 20 20 16 Blood Pressure 143/69 H 150/79 H Pulse Oximetry 99 98 Oxygen Delivery Method Room Air Room Air BMI result Body Mass Index 27.4 vital signs have been reviewed as normal and appeared to be correct. Blood pressure 143/69 Heart rate 112. Respiration rate normal. Temperature normal. Oxygen saturation normal. Appearance: Alert. Oriented X3. No acute distress. Head: Normal external exam. Normocephalic. Atraumatic. Eyes: PERRLA. EOMI. Conjunctiva and sclera normal. Eyelids normal. ENT: EAC normal. TM's Normal. Pharynx normal. Uvula midline. Moist mucous membranes. No lesions/ulcerations or masses noted on the tongue. Normal voice. No trismus noted. No drooling noted. No muffled voice noted. Neck: Normal inspection. Neck supple. FROM. No adenopathy. Thyroid Normal. No tracheal deviation noted. No crepitus is noted. No meningeal signs. No neck mass noted. No signs of trauma noted. CVS: Normal heart rate and rhythm. Heart sound normal. Pulses normal throughout. No murmurs/rales/gallops. Respiratory: Decreased breath sounds with expiratory wheezing at the bases. Pain with inspiration. Patient does go into a coughing fit and started spitting up clear/yellow / green colored sputum. No rales/rhonchi noted. Chest nontender. No crepitus is noted. No signs of trauma noted. No accessory muscle usage noted. No signs of trauma. Abdomen: Soft and nontender. Bowel sounds normal in all 4 quadrants. No distention noted. No organomegaly noted. No visible injury noted. Back: No CVA tenderness. Full range of motion noted. mild tenderness palpation to thoracic/lumbar paraspinous musculature. No mid cervical/ thoracic or lumbar tenderness step-offs or deformities noted. No signs of trauma. Patient neuro intact bilaterally and distally on all 4 extremities. Patient's reflexes intact bilaterally and distally on all 4 extremities. No rashes/lesion/induration/fluctuance or signs of infection noted. Skin: Skin warm and dry. Normal skin color. Normal skin turgor. No rashes/lesions/lacerations noted. Extremities: No lower extremity edema. No calf tenderness is noted. Extremities exhibit normal range of motion and nontender. Neuro: Oriented X 3. No motor deficit. No sensory deficit. Reflexes normal. Normal steady gait. No focal neuro deficits noted. CN's II-XII intact bilaterally? Vascular: + radial pulses/+ 2 distal pedal pulses/+2 dorsalis pedis b/l. Normal cap refill. No cyanosis noted to upper extremity nails and lower extremity toes nails. Course Course Course Narrative: 51-year-old female with a past medical history of asthma/ COPD overlap, diabetes, hypertension who had an MA and had a cardiac catheterization at [facility] on 03/23/2022 after she was transferred from being here is presenting today with complaints of mid back pain for the past few days worse today. She reports that she is also having some chills, fatigue, malaise, cough, sputum production with yellow/ green colored sputum with wheezing. She reports her back pain is worse with this cough/ wheezing and sputum production. - Labs were obtained patient mild baseline anemia which is similar compared to prior, random glucose 244. Troponin 7. Otherwise all other labs are within normal limits. Patient negative for COVID and influenza. - EKG is normal sinus rhythm with ventricular rate of 99 with LVH with nonspecific ST abnormalities similar compared to prior EKG no acute ischemic change are noted. - Patient reports she felt better after the albuterol breathing treatment, IV Solu-Medrol and the Flexeril. - I did recommend a repeat troponin although patient reports she is not having any chest pain this is not feel like the same symptoms she had a month ago when she needed the cardiac catheterization and she would like to just go home and rest. therefore declining repeat troponin. Therefore at this time will DC home with symptomatic treatment instructions return if any new or worsening symptoms to follow up with primary care provider. Patient understands agrees with this plan. Medical Decision Making Lab Data Result diagrams: 04/17/22 11:10 04/17/22 11:10 Labs: Lab Results 04/17/22 04/17/22 04/17/22 Range/Units 11:10 11:10 11:10 WBC 5.8 (4.8-10.8) X10*3/uL RBC 4.58 (4.20-5.50) X10*6/uL Hgb 10.2 L (12.0-16.0) g/dl Hct 34.6 L (37.0-47.0) % MCV 75.5 L (80.0-98.0) fL MCH 22.3 L (27.0-33.0) pg MCHC 29.5 L (31.0-35.0) g/dl RDW 18.0 H (11.0-16.0) % Plt Count 261 (160-400) X10*3/uL MPV 11.1 (9.4-12.3) fL Immature Gran % (Auto) 0.5 H (0.0-0.4) % Neut % (Auto) 70.5 (45-73) % Lymph % (Auto) 22.3 (20-40) % Warrick % (Auto) 5.5 (2-11) % Eos % (Auto) 0.9 (0-4) % Baso % (Auto) 0.3 (0-2) % Lymph # (Auto) 1.3 (1.2-4.9) X10*3/uL Warrick # (Auto) 0.3 (0.1-1.2) X10*3/uL Eos # (Auto) 0.1 (0.0-0.4) X10*3/uL Baso # (Auto) 0.0 (0.0-0.2) X10*3/uL Abs Immat Gran (auto) 0.03 (0.00-0.03) X10*3/uL Absolute Neuts (auto) 4.1 (2.0-8.3) x10*3/uL Absolute Nucleated RBC 0.000 (0.0-0.012) X10*3/uL Nucleated RBC % (auto) 0.0 (0.0-0.2) /100WBC PT 13.3 H (10.0-13.1) SEC INR 1.2 H (0.9-1.1) Sodium 138 (135-145) mmol/L Potassium 5.0 (3.3-5.1) mmol/L Chloride 102 (96-108) mmol/L Carbon Dioxide 22 (22-29) mmol/L Anion Gap 19 (12-20) BUN 12 (9-16) mg/dL Creatinine 0.96 (0.5-1.4) mg/dL Estim Creat Clear Calc 65.9 Estimated GFR > 60 Random Glucose 244 H (60-115) mg/dL Calcium 9.1 (8.4-10.2) mg/dL Magnesium 1.8 (1.6-2.6) mg/dL Total Bilirubin 0.5 (0.0-1.0) mg/dL AST 20 (5-31) U/L ALT 13 (0-31) U/L Alkaline Phosphatase 90 (39-117) U/L Troponin I High Sens (<3.5-17.0) ng/L Total Protein 6.7 (6.5-8.0) g/dL Albumin 3.7 (3.5-5.0) g/dL COVID-19 (KATHLEEN) (Negative) COVID-19 Clin Com Influenza Type A (MARIELLE) (Negative) Influenza Type B (MARIELLE) (Negative) Influenza A & B Note 04/17/22 04/17/22 04/17/22 Range/Units 11:10 11:10 11:10 WBC (4.8-10.8) X10*3/uL RBC (4.20-5.50) X10*6/uL Hgb (12.0-16.0) g/dl Hct (37.0-47.0) % MCV (80.0-98.0) fL MCH (27.0-33.0) pg MCHC (31.0-35.0) g/dl RDW (11.0-16.0) % Plt Count (160-400) X10*3/uL MPV (9.4-12.3) fL Immature Gran % (Auto) (0.0-0.4) % Neut % (Auto) (45-73) % Lymph % (Auto) (20-40) % Warrick % (Auto) (2-11) % Eos % (Auto) (0-4) % Baso % (Auto) (0-2) % Lymph # (Auto) (1.2-4.9) X10*3/uL Warrick # (Auto) (0.1-1.2) X10*3/uL Eos # (Auto) (0.0-0.4) X10*3/uL Baso # (Auto) (0.0-0.2) X10*3/uL Abs Immat Gran (auto) (0.00-0.03) X10*3/uL Absolute Neuts (auto) (2.0-8.3) x10*3/uL Absolute Nucleated RBC (0.0-0.012) X10*3/uL Nucleated RBC % (auto) (0.0-0.2) /100WBC PT (10.0-13.1) SEC INR (0.9-1.1) Sodium (135-145) mmol/L Potassium (3.3-5.1) mmol/L Chloride (96-108) mmol/L Carbon Dioxide (22-29) mmol/L Anion Gap (12-20) BUN (9-16) mg/dL Creatinine (0.5-1.4) mg/dL Estim Creat Clear Calc Estimated GFR Random Glucose (60-115) mg/dL Calcium (8.4-10.2) mg/dL Magnesium (1.6-2.6) mg/dL Total Bilirubin (0.0-1.0) mg/dL AST (5-31) U/L ALT (0-31) U/L Alkaline Phosphatase (39-117) U/L Troponin I High Sens 7.0 D (<3.5-17.0) ng/L Total Protein (6.5-8.0) g/dL Albumin (3.5-5.0) g/dL COVID-19 (KATHLEEN) Negative (Negative) COVID-19 Clin Com See Note Influenza Type A (MARIELLE) Negative (Negative) Influenza Type B (MARIELLE) Negative (Negative) Influenza A & B Note See Note Imaging Data Chest x-ray lumbar spine x-ray: Attestation: I personally reviewed and interpreted this imaging study as follows: Radiologist's impression: FINDINGS: No significant abnormality is noted involving the heart, lungs, mediastinum, bony thorax or soft tissues. XR/XR chest 2V IMPRESSION: Normal chest PA and lateral. FINDINGS: The vertebral bodies and posterior elements are normal. The disc spaces are preserved and the vertebral alignment is normal. The paraspinal soft tissues appear unremarkable. Mildly atherosclerotic aorta and iliac arteries. XR/XR lumbar spine 2-3V IMPRESSION: Unremarkable examination. ECG Data Attestation: I personally reviewed and interpreted this ECG as follows: Interpretation: - EKG is normal sinus rhythm with ventricular rate of 99 with LVH with nonspecific ST abnormalities similar compared to prior EKG no acute ischemic change are noted. Critical Care Time Critical Care Time Critical Care Time: Yes Total Critical Care Time: 60 Attestation: I personally attest to this time spent taking care of the patient Discharge Plan Discharge Clinical Impression: Asthma exacerbation with COPD (chronic obstructive pulmonary disease), Acute bronchitis, Back strain Patient Disposition: Home, Self-Care Instructions: Asthma (ED), Muscle Strain (ED), Acute Bronchitis (ED), COPD (Chronic Obstructive Pulmonary Disease) (ED) Prescriptions: New azithromycin 500 mg tablet See Rx Instructions PO .COMPLEX Qty: 3 0RF Rx Instructions: take 500 mg today (day 1), then 250 mg for 4 days (days 2-5) prednisone 20 mg tablet 40 mg PO DAILY 5 Days Qty: 10 0RF albuterol sulfate 90 mcg/actuation HFA aerosol inhaler 1 inh inhalation QID PRN (Reason: shortness of breath or wheezing) Qty: 8.5 0RF cyclobenzaprine 10 mg tablet 10 mg PO Q8H Qty: 14 0RF benzonatate 100 mg capsule 100 mg PO BID PRN (Reason: cough) Qty: 14 0RF No Action atorvastatin 10 mg tablet 1 tab PO DAILY aspirin 81 mg tablet,delayed release (DR/EC) 1 tab PO DAILY albuterol sulfate [ProAir HFA] 90 mcg/actuation HFA aerosol inhaler 2 puff PO Q4H PRN (Reason: wheezing) glipizide-metformin 5-500 mg tablet 2 tab PO BID Advair HFA 115-21 mcg/actuation HFA aerosol inhaler 2 puff inhalation BID amlodipine 10 mg Tablet 10 mg PO DAILY 30 Days Qty: 30 0RF Protocol: Hold for SBP< HOLD for SBP < : 90 lisinopril-hydrochlorothiazide 20-12.5 mg tablet 1 tab PO DAILY Incruse Ellipta 62.5 mcg/actuation blister with device 1 puff PO DAILY montelukast 10 mg tablet 1 tab PO BEDTIME albuterol sulfate 2.5 mg /3 mL (0.083 %) solution for nebulization 2.5 mg inhalation QID PRN (Reason: bronchospasm) Qty: 90 0RF codeine-guaifenesin 10-100 mg/5 mL liquid 10 ml PO Q6H PRN (Reason: cough) Qty: 237 0RF doxycycline hyclate 100 mg tablet 100 mg PO BID Qty: 20 0RF insulin glargine [Lantus Solostar U-100 Insulin] 100 unit/mL (3 mL) insulin pen 20 unit subcut BEDTIME gabapentin 300 mg Capsule 600 mg PO BEDTIME Qty: 20 0RF Referrals: Physician,Unknown J [Primary Care Provider] - 2 days (your pcp) Print Language: Polish
[2022-04-17 12:06] LABS: Alanine Aminotransferase 13 U/L (0-31); Albumin Level 3.7 g/dL (3.5-5.0); Alkaline Phosphatase 90 U/L (39-117); Anion Gap 19 (12-20); Aspartate Amino Transferase 20 U/L (5-31); Blood Urea Nitrogen 12 mg/dL (9-16); Calcium 9.1 mg/dL (8.4-10.2); Carbon Dioxide 22 mmol/L (22-29); Chloride 102 mmol/L (96-108); Creatinine Clr Calc Pharmacy 65.9; Estimated Glomerular Filt Rate > 60; Glucose Random 244 mg/dL (60-115); Magnesium 1.8 mg/dL (1.6-2.6); Sodium 138 mmol/L (135-145); Total Protein 6.7 g/dL (6.5-8.0)
--- NOTE | 2022-04-17 12:12 | PC.NURSE ---
pt refused guaifenesin with codeine, sts last time she had it, it made her itch, updated allergies
[2022-04-17 12:14] LABS: Bilirubin Total 0.5 mg/dL (0.0-1.0)
--- NOTE | 2022-04-17 16:50 | PC.NURSE ---
1 Unit dose container of guaifenesin w/codeine wasted, pt refused wasted with gali sheppard RN
== END 2022-04-17 13:59 | disposition home or self-care (01) ==
PROVIDERS: Physician Assistant Medical; Emergency Provider Emergency Medicine
DX: J44.1 Chronic obstructive pulmonary disease with (acute) exacerbation (principal); M54.50 Low back pain, unspecified; Z20.822 Contact with and (suspected) exposure to COVID-19; Z79.899 Other long term (current) drug therapy
CPT/HCPCS: 36415; 71046; 72100; 80053; 83735; 84484; 85025; 85610; 87502; 87635; 93005; 94640; 96374; 99285; J2930

== ENCOUNTER 2022-04-18 06:06 | Emergency (ER) | payer MEDICAID, SELFPAY ==
--- NOTE | ~2022-04-18 | XR_ITS ---
EXAMINATION: XR THORACOLUMBAR SPINE CLINICAL INFORMATION: Thoracic spine pain. COMPARISON: None TECHNIQUE: 2 views of the thoracic spine were obtained. FINDINGS: The vertebral alignment is normal. No intrinsic bony abnormality. The disc heights and neural foramina are well maintained. The endplates and posterior elements are normal. No fracture or subluxation. The surrounding prevertebral soft tissues are unremarkable. XR/XR thoracic spine 2V IMPRESSION: Unremarkable thoracic spine.
[2022-04-18 06:26] VITALS: BP 140/58; PULSE 105; RESP 20; TEMP 36.6; O2SAT 99; BMI 26.5
--- NOTE | 2022-04-18 07:14 | ED_ITS ---
HPI - Back Pain/Injury General Chief Complaint: Back Pain/Injury Stated Complaint: back pain, was seen yesterday Time Seen by Provider: 04/18/22 07:14 Source: patient Mode of arrival: ambulatory Limitations: no limitations History of Present Illness HPI Narrative: Patient with three weeks of back pain, seen yesterday. Patient was treated yesterday for bronchitis, she had normal labs and CXR. MD elicited complaint: back pain Pertinent past history: prior back pain Onset (ago): week(s) Timing: intermittent Severity: mild Similar Symptoms Previously: Yes Quality: stabbing Location: lumbar spine and thoracic spine Radiation: none Exacerbating factors: none Relieving factors: none Associated symptoms: denies other symptoms Related Data Home Medications Medication Instructions Recorded Confirmed albuterol sulfate 90 mcg/actuation 2 puff PO Q4H PRN wheezing 12/24/20 03/23/22 aerosol inhaler (ProAir HFA) aspirin 81 mg tablet,delayed 1 tab PO DAILY 12/24/20 03/23/22 release atorvastatin 10 mg tablet 1 tab PO DAILY 12/24/20 03/23/22 fluticasone propionate 115 2 puff inhalation BID 12/24/20 03/23/22 mcg-salmeterol 21 mcg/actuation HFA inhaler (Advair HFA) glipizide 5 mg-metformin 500 mg 2 tab PO BID 12/24/20 03/23/22 tablet lisinopril 20 1 tab PO DAILY 10/31/21 03/23/22 mg-hydrochlorothiazide 12.5 mg tablet umeclidinium 62.5 mcg/actuation 1 puff PO DAILY 10/31/21 03/23/22 blister powder for inhalation (Incruse Ellipta) montelukast 10 mg tablet 1 tab PO BEDTIME 02/13/22 03/23/22 insulin glargine 100 unit/mL (3 20 unit subcut BEDTIME 03/23/22 03/23/22 mL) subcutaneous pen (Lantus Solostar U-100 Insulin) Previous Rx's Medication Instructions Recorded amlodipine 10 mg tablet 10 mg PO DAILY 30 days #30 tabs 12/27/20 gabapentin 300 mg capsule 600 mg PO BEDTIME #20 caps 11/21/21 albuterol sulfate 2.5 mg/3 mL 2.5 mg (3 mL) inhalation QID PRN 03/15/22 (0.083 %) solution for nebulization bronchospasm #90 mL codeine 10 mg-guaifenesin 100 mg/5 10 ml PO Q6H PRN cough #237 mL 03/17/22 mL oral liquid doxycycline hyclate 100 mg tablet 100 mg PO BID #20 tabs 03/17/22 albuterol sulfate 90 mcg/actuation 1 inh inhalation QID PRN shortness 04/17/22 aerosol inhaler of breath or wheezing #8.5 grams azithromycin 250 mg tablet See Rx Instructions PO .COMPLEX #6 04/17/22 tabs azithromycin 500 mg tablet See Rx Instructions PO .COMPLEX #3 04/17/22 tabs benzonatate 100 mg capsule 100 mg PO BID PRN cough #14 caps 04/17/22 cyclobenzaprine 10 mg tablet 10 mg PO Q8H #14 tabs 04/17/22 prednisone 20 mg tablet 40 mg PO DAILY Asthma/COPD 04/17/22 exacerbation 5 days #10 tabs naproxen 500 mg tablet (Naprosyn) 500 mg PO BID #20 tabs 04/18/22 Allergies Allergy/AdvReac Type Severity Reaction Status Date / Time Penicillins [PENICILLINS] Allergy Severe RASH Verified 02/14/22 07:59 amoxicillin [AMOXICILLIN] Allergy Intermediate HIVES Verified 02/11/22 15:09 codeine Allergy Itching Verified 04/17/22 12:14 Review of Systems Review of Systems: Yes all other systems are reviewed and are negative Neurologic: Denies Sensory deficit (Neuro) [facility] Past Medical History Medical History Asthma Atherosclerotic cardiovascular disease Atrial tachycardia COPD (chronic obstructive pulmonary disease) COVID-19 vaccine series completed Diabetes Diabetic toe ulcer Essential hypertension GERD (gastroesophageal reflux disease) Hypertension Osteomyelitis Surgical History History of esophagogastroduodenoscopy (EGD) History of toe surgery (09/22/21) Family History Family History Mother Hx of CABG Sister CAD (coronary artery disease) Social History Social History Household Members: Family Housing: Apartment Do you presently have visiting nurse or other home services: Yes Alcohol intake: never Patient Tobacco Use Status: Current everyday Tobacco user Tobacco use type: Cigarette Cigarettes Per Day: 1 Years Smoked: 43 Smoked in Last 30 Days: Yes e-Cigarette/Vaping Use: Never Used Second Hand Smoke Exposure: Yes Advance Directives: No Advance Directives Information Provided: Yes Advance Directives Date on File: 12/28/20 Patient : No service: No Current occupational status: unemployed Physical Exam Vital Signs: Vital Signs: Last Vital Signs Temp 97.9 F 04/18/22 06:26 Pulse 105 H 04/18/22 06:26 Resp 20 04/18/22 06:26 BP 140/58 H 04/18/22 06:26 Pulse Ox 99 04/18/22 06:26 O2 Del Method 04/18/22 06:26 BMI result Body Mass Index 26.5 Const: Other: female looking older than stated age jumping around and punching herself on the back, agitated Nutritional Appearance: average body habitus Orientation/consciousness: oriented to person Limitations: no limitations HEENT: Head: Yes normal to inspection Ears: external ears normal General nose exam: Normal external nose present Mouth: Normal oral and palatal mucosa present and oropharynx normal Throat: Yes posterior oropharynx normal Eyes: General: appearance normal, both eyes and all related structures Neck: Other: supple Neck: Yes normal visual inspection Chest: Chest palpation & inspection: normal inspection of the chest Resp: Auscultation: clear to auscultation bilaterally Cardio: Jugular venous distension: no JVD Rate: regular rate Rhythm: regular rhythm Heart sounds: S1 normal heart sound present and S2 normal heart sound present GI: Inspection: Yes normal to inspection Palpation (GI): Soft to palpation, nontender and No hepatosplenomegaly present Auscultation: normal bowel s ounds : General: Yes no CVA tenderness Back/Spine/Pelvis: Back: no CVA tenderness Skin: General skin exam: no rashes or lesions noted Neuro: General: oriented to person Cranial nerves: Yes CN's II-XII intact bilaterally Motor exam (neuro): 5/5 motor strength present throughout Sensory Exam: No Sensory deficit (Neuro) Extrem: General: Yes normal to inspection Psych: Appearance: grossly normal Course Reevaluation(s) Reevaluation #1: No evidence of pneumonia or bacterial infection from recent visit, xrays shows no destruction of spine, patient with recent catheterization of heart will CT aorta to make sure that there is no aortic problem Time: 08:36 Reevaluation #2: Patient now states that she did not have a catheterization, she does not want the CT will dc home Time: 08:55 Reevaluation #3: irate that she did not get more medication for pain Time: 10:03 MDM - Back Pain/Injury Imaging Data thoracic spine: Radiologist's impression: FINDINGS: The vertebral alignment is normal. No intrinsic bony abnormality. The disc heights and neural foramina are well maintained. The endplates and posterior elements are normal. No fracture or subluxation. The surrounding prevertebral soft tissues are unremarkable.? XR/XR thoracic spine 2V IMPRESSION: Unremarkable thoracic spine Discharge Plan Discharge Clinical Impression: Thoracic back pain Patient Disposition: Home, Self-Care Prescriptions: New naproxen [Naprosyn] 500 mg tablet 500 mg PO BID Qty: 20 0RF No Action atorvastatin 10 mg tablet 1 tab PO DAILY aspirin 81 mg tablet,delayed release (DR/EC) 1 tab PO DAILY albuterol sulfate [ProAir HFA] 90 mcg/actuation HFA aerosol inhaler 2 puff PO Q4H PRN (Reason: wheezing) glipizide-metformin 5-500 mg tablet 2 tab PO BID Advair HFA 115-21 mcg/actuation HFA aerosol inhaler 2 puff inhalation BID amlodipine 10 mg Tablet 10 mg PO DAILY 30 Days Qty: 30 0RF Protocol: Hold for SBP< HOLD for SBP < : 90 lisinopril-hydrochlorothiazide 20-12.5 mg tablet 1 tab PO DAILY Incruse Ellipta 62.5 mcg/actuation blister with device 1 puff PO DAILY montelukast 10 mg tablet 1 tab PO BEDTIME albuterol sulfate 2.5 mg /3 mL (0.083 %) solution for nebulization 2.5 mg inhalation QID PRN (Reason: bronchospasm) Qty: 90 0RF codeine-guaifenesin 10-100 mg/5 mL liquid 10 ml PO Q6H PRN (Reason: cough) Qty: 237 0RF doxycycline hyclate 100 mg tablet 100 mg PO BID Qty: 20 0RF insulin glargine [Lantus Solostar U-100 Insulin] 100 unit/mL (3 mL) insulin pen 20 unit subcut BEDTIME gabapentin 300 mg Capsule 600 mg PO BEDTIME Qty: 20 0RF azithromycin 500 mg tablet See Rx Instructions PO .COMPLEX Qty: 3 0RF Rx Instructions: take 500 mg today (day 1), then 250 mg for 4 days (days 2-5) prednisone 20 mg tablet 40 mg PO DAILY 5 Days Qty: 10 0RF albuterol sulfate 90 mcg/actuation HFA aerosol inhaler 1 inh inhalation QID PRN (Reason: shortness of breath or wheezing) Qty: 8.5 0RF cyclobenzaprine 10 mg tablet 10 mg PO Q8H Qty: 14 0RF benzonatate 100 mg capsule 100 mg PO BID PRN (Reason: cough) Qty: 14 0RF azithromycin 250 mg tablet See Rx Instructions PO .COMPLEX Qty: 6 0RF Rx Instructions: take 500 mg today (day 1), then 250 mg for 4 days (days 2-5) Referrals: Physician,Unknown J [Primary Care Provider] - 5 days
--- NOTE | 2022-04-18 07:14 | PC.NURSE ---
patient a/ox4 . reports coming in yesterday for back spasms , patient reports she received medication IVP and medication for home that she reports hade no relief . She ambulated from waiting room .tearful . perrla . heart rate regular at 87 beats per minute . lungs are clear . skin is pink warm and dry pain level reported 10 our of 10 , spasms in upper mid back reported . patient changed into Kelvin . abdomen soft not tender . positive bowel sounds in all four quadrants . patient aware of of care .
--- NOTE | 2022-04-18 07:26 | PC.NURSE ---
patient to X-ray for imaging . patient aware of care .
[2022-04-18] MEDS: Ketorolac Tromethamine 30 MG/ML VIAL IM (07:29)
--- NOTE | 2022-04-18 09:00 | PC.NURSE ---
patient resting quietly sleeping on bed . breathing even and unlabored . appears comfortable at this time .
--- NOTE | 2022-04-18 10:04 | PC.NURSE ---
patient talked to provider . left without discharge paperwork . patient aware of plan of care . plans to follow up with primary care .
== END 2022-04-18 10:06 | disposition home or self-care (01) ==
PROVIDERS: Emergency Provider Emergency Medicine
DX: M54.6 Pain in thoracic spine (principal); E11.9 Type 2 diabetes mellitus without complications; I10 Essential (primary) hypertension; F17.210 Nicotine dependence, cigarettes, uncomplicated; Z79.02 Long term (current) use of antithrombotics/antiplatelets; Z79.82 Long term (current) use of aspirin; Z79.899 Other long term (current) drug therapy; Z79.4 Long term (current) use of insulin
CPT/HCPCS: 72070; 96372; 99284; J1885

== ENCOUNTER 2022-04-30 21:33 | Inpatient (IN) | payer MEDICAID, SELFPAY ==
--- NOTE | 2022-04-30 | ECG_ITS ---
Test Reason : chest pain Blood Pressure : / mmHG Vent. Rate : 121 BPM Atrial Rate : 121 BPM P-R Int : 142 ms QRS Dur : 082 ms QT Int : 326 ms P-R-T Axes : 068 043 102 degrees QTc Int : 462 ms Sinus tachycardia Left ventricular hypertrophy with repolarization abnormality ( Arley product ) ST depression in Lateral leads Abnormal ECG When compared with ECG of 17-APR-2022 10:33, ST now depressed in Lateral leads Referred By: Aleja Brennan Electronically Signed By:MAXINE BETANCUR MD
--- NOTE | ~2022-04-30 | XR_ITS ---
EXAMINATION: XR FOOT, RIGHT CLINICAL INFORMATION: Cellulitis. COMPARISON: None TECHNIQUE: 3 views. of the right foot. FINDINGS: No fracture. No dislocation. Joint spaces are maintained. No soft tissue abnormality. Small plantar calcaneal spur. XR/XR foot RT 2V IMPRESSION: No acute abnormality of the foot.
--- NOTE | ~2022-04-30 | XR_ITS ---
EXAMINATION: XR FOOT, LEFT CLINICAL INFORMATION: Nonhealing wound. COMPARISON: Left foot 02/13/2022 TECHNIQUE: 3 views of the left foot. FINDINGS: Status post amputation of the second toe. Chronic deformity of bone loss of the head of the second metatarsal unchanged since prior study. No acute changes. No acute bone loss or abnormal periosteal reaction. XR/XR foot LT min 3V IMPRESSION: Status post amputation of second toe. Chronic deformity of the head of the second metatarsal. No acute changes.
--- NOTE | ~2022-04-30 | MR_ITS ---
EXAMINATION: MRI FOOT WITHOUT AND WITH CONTRAST, RIGHT CLINICAL INFORMATION: Cellulitis. Evaluate for osteomyelitis. COMPARISON: Radiographs 04/30/2022 TECHNIQUE: MRI without and with intravenous administration of 7 mL of Gadavist is performed on the right foot. FINDINGS: There is marked subcutaneous edema throughout the dorsum of the foot with minimal reticular enhancement, possibly cellulitis. No abscess. There is marrow edema at the tuft of the 1st distal phalanx. Although this could represent osteomyelitis if there is an overlying ulcer, the appearance is more typical of a nondisplaced fracture. Additionally, there does appear to be a nondisplaced fracture involving the tuft on the recent radiographs. Correlate clinically. There is diffuse edema of the intrinsic muscles of the foot. 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 The Lisfranc ligament is intact. No metatarsal stress reaction or fracture. MR/MR foot RT wo/w con IMPRESSION: 1. Probable nondisplaced fracture of the tuft of the1st distal phalanx. Correlate clinically. 2. Marked subcutaneous edema throughout the dorsum of the foot, possibly cellulitis. No abscess or underlying osteomyelitis. 3. 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
[2022-04-30 21:41] VITALS: BP 148/86; PULSE 85; O2SAT 99; BMI 28.2
[2022-04-30 21:59] VITALS: BP 134/88; PULSE 99; RESP 16; TEMP 37.1; O2SAT 99
[2022-04-30 22:20] LABS: Basophils Percent Auto 0.3 % (0-2); Eosinophils Absolute Auto 0.1 X10*3/uL (0.0-0.4); Eosinophils Percent Auto 0.3 % (0-4); Hematocrit 31.9 % (37.0-47.0); Hemoglobin 9.7 g/dl (12.0-16.0); Imm Gran Abs Auto 0.12 X10*3/uL (0.00-0.03); Imm Gran Pct Auto 0.8 % (0.0-0.4); Lymphocytes Absolute Auto 0.7 X10*3/uL (1.2-4.9); Lymphocytes Percent Auto 4.3 % (20-40); MANUAL DIFF FLAG SCAN; Mean Corpuscular HGB Conc 30.4 g/dl (31.0-35.0); Mean Corpuscular Hemoglobin 22.4 pg (27.0-33.0); Mean Corpuscular Volume 73.7 fL (80.0-98.0); Monocytes Absolute Auto 0.5 X10*3/uL (0.1-1.2); Monocytes Percent Auto 3.4 % (2-11); Neutrophils Absolute Auto 14.2 x10*3/uL (2.0-8.3); Neutrophils Percent Auto 90.9 % (45-73); Platelet Count 160 X10*3/uL (160-400); Red Blood Count 4.33 X10*6/uL (4.20-5.50); Red Cell Distribution Width 16.9 % (11.0-16.0); SCAN SMEAR FLAG 1; White Blood Count 15.7 X10*3/uL (4.8-10.8)
[2022-04-30 22:21] LABS: PLT ABN DIST 1
[2022-04-30 22:39] LABS: Alanine Aminotransferase 9 U/L (0-31); Albumin Level 3.5 g/dL (3.5-5.0); Alkaline Phosphatase 97 U/L (39-117); Anion Gap 17 (12-20); Aspartate Amino Transferase 8 U/L (5-31); Bilirubin Total 0.2 mg/dL (0.0-1.0); Blood Urea Nitrogen 9 mg/dL (9-16); Calcium 8.5 mg/dL (8.4-10.2); Carbon Dioxide 26 mmol/L (22-29); Chloride 86 mmol/L (96-108); Estimated Glomerular Filt Rate 39; Glucose Random 699 mg/dL (60-115); Potassium 3.3 mmol/L (3.3-5.1); Sodium 126 mmol/L (135-145); Total Protein 6.4 g/dL (6.5-8.0)
[2022-04-30 22:53] LABS: SLIDE REVIEW VERIFIED
--- OUTSIDE RECORDS SUMMARY | 2022-04-30 22:59 | XMS_ITS | Continuity of Care Document ---
:1970 Author Organization [facility] Address [address] [place] [id number]- Care Team Providers Name Role Phone Medina Moss MD Primary Care Physician Encounter [facility] R [id number] Date(s): 11/18/19 - 12/18/19 [facility] Care [address] [place] [id number] [facility] Attending Physician: Admtr, Prince8 Admitting Physician: Admtr, Prince8 Referring Physician: Admtr, Ar8 Allergies, Adverse Reactions, Alerts Substance Reaction Severity Status penicillin Hives Active Medications Advair HFA 115 mcg / 21 mcg 2 puffs, Inhalation, 2 times a day, # 1 each, 5 Refills, Maintenance, 10/30/19 12:13:00 EDT, Aerosol, [id number], 2 puffs Inhalation 2 times a day, 160.02, cm, 10/30/19 9:28:00 EDT, Height, 74,kg, 01/04/19 9:01:00 EDT, Dry Weight Start Date: 10/30/19 Status: Orderedalbuterol 0.083% inhalation solution 3 mL = 2.5 mg, Inhalation, Every 4 hours, PRN for wheezing, # 25 each, 3 Refills, Maintenance, 04/29/19 10:25:23 EST, Solution Start Date: 04/29/19 Status: OrderedAlcohol Wipes See Instructions, # 1 box, Refills 6, Tot. Refills 6, Maintenance, Type 2 Diabetes Mellitus ICD 10 E11.9. Test 3 times daily., 01/04/19 9:49:06 EDT, Compound Start Date: 01/04/19 Status: OrderedAspirin Enteric Coated 81 mg oral delayed release tablet 1 tablet = 81 mg, By Mouth, Daily, # 30 tablet, 5 Refills, Maintenance, 10/29/19 13:46:00 EDT, [facility]/pharmacy #[id number], 160.02, cm, 01/04/19 9:01:00 EDT, Height, 74, kg, 01/04/19 9:01:00 EDT, Dry Weight Start Date: 10/29/19 Stop Date: 04/26/20 Status: Orderedatorvastatin 10 mg oral tablet 1 tablet = 10 mg, By Mouth, Daily, Cholesterol medication, # 30 tablet, 5 Refills, Maintenance, 10/30/19 12:11:00 EDT, [facility]/pharmacy #[id number], 160.02, cm, 10/30/19 9:28:00 EDT, Height, 74, kg, 01/04/19 9:01:00 EDT, Dry Weight Start Date: 10/30/19 Status: OrderedBydureon Pen 2 mg subcutaneous injection, extended release See Instructions, INJECT 2 MG BY SUBCUTANEOUS INFUSION EVERY 7 DAYS, # 4 Unknown, 5 Refills, Maintenance, [id number], 160.02, cm, 10/30/19 9:28:00 EDT, Height, 74, kg, 01/04/19 9:01:00 EDT, Dry Weight Start Date: 10/30/19 Status: Orderedcyclobenzaprine 5 mg oral tablet 1 tablet = 5 mg, By Mouth, 3 times a day, PRN Spasm, # 40 tablet, 3 Refills, Maintenance, 10/30/19 12:12:00 EDT, Tablet, [facility]/pharmacy #[id number], 160.02, cm, 10/30/19 9:28:00 EDT, Height, 74, kg, 01/04/19 9:01:00 EDT, Dry Weight Start Date: 10/30/19 Status: OrderedFreestyle Lite Test Strips See Instructions, # 60 each, Refills 11, Tot. Refills 11, Maintenance, Type 2 Diabetes Mellitus ICD 10 E 11.9. Test 3 times daily., 10/29/19 12:11:00 EDT, Compound, 160.02, cm, 01/04/19 9:01:00 EDT, Height, 74, kg, 01/04/19 9:01:00 EDT, Dry Weight Start Date: 10/29/19 Status: Orderedgabapentin 300 mg oral capsule 600 mg, 2, capsule, By Mouth, Daily at bedtime, # 60 capsule, Refills 5, Tot. Refills 5, Maintenance, 10/30/19 12:12:00 EDT, Route to Pharmacy Electronically, [facility]/pharmacy #[id number], 160.02, cm, 10/30/19 9:28:00 EDT, Height, 74, kg, 01/04/19 9:01:00 EDT,... Start Date: 10/30/19 Status: Orderedglipizide-metformin 5 mg-500 mg oral tablet 2 tablet, By Mouth, 2 times a day, DIABETES, # 60 tablet, 5 Refills, Maintenance, 10/30/19 12:13:00 EDT, Tablet, [facility]/pharmacy #[id number], 2 tablet By Mouth 2 times a day,Instr:DIABETES, 160.02, cm, 209:28:00 EDT, Height, 74, kg, 01/04/19 9:01:00 EDT... Start Date: 10/30/19 Status: Orderedlisinopril 10 mg oral tablet 10 mg, 1, tablet, By Mouth, Daily, BLOOD PRESSURE, # 30 tablet, Refills 5, Tot. Refills 5, Maintenance, 10/30/19 12:13:00 EDT, Route to Pharmacy Electronically, [facility]/pharmacy #[id number], Appt required for further refills, 160.02, cm, 10/30/19 9:28:00 EDT, H... Start Date: 10/30/19 Status: OrderedNebulizer mask and tubing Nebulizer mask and tubing, See Instructions, # 1 each, Refills 0, Tot. Refills 0, Maintenance, Dx: Asthma J44.9. To be used with albuterol, 12/17/19 10:33:00 EDT, Compound Start Date: 12/17/19 Status: OrderedProAir HFA 90 mcg/inh inhalation aerosol with adapter See Instructions, INHALE 2 PUFFS EVERY 4 HOURS NEEDED FOR WHEEZING/SHORTNESS OF BREATH, # 8.5 Unknown, Refills 5, Maintenance, Instructions Replace Required Details, Route to Pharmacy Electronically, [id number], [facility] STORE... Start Date: 10/29/19 Status: OrderedSingulair 10 mg oral tablet 10 mg, 1, tablet, By Mouth, Daily in PM, ASTHMA, # 30 tablet, Refills 5, Tot. Refills 5, Maintenance, 10/30/19 12:07:00 EDT, Route to Pharmacy Electronically, [facility]/pharmacy #[id number], 160.02, cm, 10/30/19 9:28:00 EDT, Height, 74, kg, 01/04/19 9:01:00 EDT,... Start Date: 10/30/19 Status: Ordered Problem List Condition Effective Dates Status Health Status Informant COPD with asthma(Confirmed) Active Type 2 Diabetes Mellitus with Active peripheral neuropathy(Confirmed) Family history of early CAD(Confirmed) Active Hypertension(Confirmed) Active Tobacco use(Confirmed) Active Social History Social History Type Response Smoking Status Current every day smoker; To bacco user in household: Yes; Other: 2 packs a day; entered on: 01/03/17 Sex
--- OUTSIDE RECORDS SUMMARY | 2022-04-30 22:59 | XMS_ITS | Continuity of Care Document ---
:1970 Author Organization [facility] Address [address] [place] [address]- Care Team Providers Name Role Phone Genevieve MORA, Danica Primary Care Physician Encounter [facility] [place] Date(s): 02/09/22 - 03/11/22 [facility] [address] [place], [place] [id number] Allergies, Adverse Reactions, Alerts Substance Reaction Severity Status amoxicillin Active penicillin Hives Active Immunizations Given and Recorded Vaccine Date Status Refusal Reason influenza virus vaccine, inactivated 03/16/21 Recorded SARS-CoV-2 (COVID-19) mRNA-1273 vaccine 11/08/20 Recorded SARS-CoV-2 (COVID-19) mRNA-1273 vaccine 10/11/20 Recorded Medications Advair HFA 115 mcg / 21 mcg 2 puffs, Inhalation, 2 times a day, Disregard previous script, # 12 Gm, 0 Refills, 02/11/22 17:36:00EDT, [id number], 2 puffs Inhalation 2 times a day,Instr:Disregard previous script, 160.02, cm, 02/07/22 10:35:00 EDT, Height Start Date: 02/11/22 Status: Orderedalbuterol 0.083% inhalation solution 1 vials, Inhalation, Every 6 hours, PRN NEEDED FOR WHEEZING, # 25 each, 0 Refills, 01/27/22 17:46:00 EDT, [id number], 160.02, cm, 12/28/21 11:08:00 EDT, Height Start Date: 01/27/22 Status: OrderedAlcohol Wipes See Instructions, # 1 box, Refills 6, Tot. Refills 6, Maintenance, Type 2 Diabetes Mellitus ICD 10 E11.9. Test 3 times daily., 01/04/19 9:49:06 EDT, Compound Start Date: 01/04/19 Status: OrderedamLODIPine 10 mg oral tablet 10 mg, 1, tablet, By Mouth, Daily, # 30 tablet, Refills 2, Tot. Refills 2, Maintenance, 02/11/22 17:35:00 EDT, [id number] fill upon patient request ifthe prescription is for a schedule II opioid drug... Start Date: 02/11/22 Status: OrderedAspirin Enteric Coated 81 mg oral delayed release tablet 1 tablet = 81 mg, By Mouth, Daily, # 30 tablet, 5 Refills, Maintenance, 02/11/22 17:36:00 EDT, [facility]/pharmacy #[id number], 160.02, cm, 02/07/22 10:35:00 EDT, Height Start Date: 02/11/22 Stop Date: 08/10/22 Status: Orderedatorvastatin 10 mg oral tablet 1 tablet = 10 mg, By Mouth, Daily, Cholesterol medication, # 30 tablet, 2 Refills, Maintenance, 02/11/22 17:35:00 EDT, [facility]/pharmacy #[id number], 160.02, cm, 02/07/22 10:35:00 EDT, Height Start Date: 02/11/22 Status: OrderedFreestyle Lite Lancets See Instructions, # 100 each, Refills 2, Tot. Refills 2, Maintenance, To test blood sugars TID Dx: Type 2 DM, uncontrolled ICD 10: E11.9, 02/15/22 10:40:00 EDT, Supply, 160.02, cm, 02/07/22 10:35:00 EDT, Height Start Date: 02/15/22 Status: OrderedFreestyle Lite Monitor See Instructions, # 1 each, Maintenance, Use as instructed Dx: Type 2 DM ICID 10: E11.9, 12/22/21 14:04:00 EDT, Supply, 160.02, cm, 09/21/21 11:48:00 EDT, Height Start Date: 12/22/21 Status: OrderedFreestyle Lite Test Strips See Instructions, # 100 each, Refills 3, Tot. Refills 3, Maintenance, Type 2 Diabetes Mellitus ICD 10 E 11.9. Test 3 times daily., 02/01/22 14:06:00 EDT, Compound, 160.02, cm, 12/28/21 11:08:00 EDT, Height Start Date: 02/01/22 Status: Orderedgabapentin 300 mg oral capsule 2, capsule, By Mouth, Daily at bedtime, # 60 capsule, Refills 2, Tot. Refills 2, 02/11/22 17:35:00 EDT, Route to Pharmacy Electronically, [facility]/pharmacy #[id number], 160.02, cm, 02/07/22 10:35:00 EDT, Height Start Date: 02/11/22 Status: Orderedglipizide-metformin 5 mg-500 mg oral tablet 2 tablet, By Mouth, 2 times a day, DIABETES, # 120 tablet, 2 Refills, Maintenance, 02/11/22 17:35:00EDT, Tablet, [facility]/pharmacy #[id number], 2 tablet By Mouth 2 times a day,x30 days,Instr:DIABETES, 160.02, cm, 02/07/22 10:35:00 EDT, Height Start Date: 02/11/22 Stop Date: 05/12/22 Status: OrderedHome Blood Pressure Monitor See Instructions, # 1 each, Maintenance, Monitor BP once daily and write down on your BP log. Dx: Essential Hypertension I10, 03/24/20 14:31:00 EDT, Compound Start Date: 03/24/20 Status: Orderedhydrochlorothiazide-lisinopril 12.5 mg-20 mg oral tablet 1 tablet, By Mouth, Daily, NEW BLOOD PRESSURE MEDICATION, # 30 tablet, 2 Refills, Maintenance, 02/11/22 17:35:00 EDT, [facility]/pharmacy #[id number], please cancel lisinopril, 1 tablet By Mouth Daily,Instr:NEW BLOOD PRESSURE MEDICATION, 160.02, cm, 02/07/22 10:35... Start Date: 02/11/22 Status: Orderedincentive Spirometer incentive Spirometer, See Instructions, # 1 each, Refills 0, Tot. Refills 0, Maintenance, Use as directed, 12/28/21 11:36:00 EDT, Supply, 160.02, cm, 12/28/21 11:08:00 EDT, Height Start Date: 12/28/21 Status: OrderedIncruse Ellipta 62.5 mcg/inh inhalation powder 1 each, Inhalation, Every 24 hours, doses should be taken at least 24 hours apart, # 30 each, 2 Refills, Maintenance, 02/11/22 17:35:00 EDT, Powder, [facility]/pharmacy #[id number], 160.02, cm, 02/07/22 10:35:00 EDT, Height Start Date: 02/11/22 Status: OrderedLantus Solostar Pen 100 units/mL subcutaneous solution = 20 units, Subcutaneous Injection, Daily at bedtime, Dose increase, # 15 mL, 1 Refills, Maintenance, 02/11/22 17:36:00 EDT, Solution, [facility]/pharmacy #[id number], Partial fill upon patient request if the prescription is for a schedule II opioid drug., 160.02,... Start Date: 02/11/22 Status: OrderedLeft Offloading shoe with insole Left Offloading shoe with insole, See Instructions, # 1 each, Refills 0, Tot. Refills 0, Maintenance, Use as needed when walking Dx: Left DM foot wound s/p surgery ICD 10: S91.302D, 02/07/22 10:43:00 EDT, Supply Start Date: 02/07/22 Status: Orderedmontelukast 10 mg oral tablet 1, tablet, By Mouth, Daily in PM, Disregard previous script, # 30 tablet, Refills 1, Tot. Refills 1,01/31/22 10:36:00 EDT, Route to Pharmacy Electronically, [facility]/pharmacy #[id number], 160.02, cm, 12/28/21 11:08:00 EDT, Height Start Date: 01/31/22 Status: OrderedNebulizer mask and tubing Nebulizer mask and tubing, See Instructions, # 1 each, Refills 0, Tot. Refills 0, Maintenance, Dx: Asthma J44.9. To be used with albuterol, 12/17/19 10:33:00 EDT, Compound Start Date: 12/17/19 Status: OrderedPen [place], 31 G x 5 mm BD Ultra Fine III See Instructions, # 100 each, Maintenance, Use daily with Lantus solostar pen Dx: Type 2 DM ICD 10: E11.9, 09/20/21 8:38:00 EDT, Supply, 160.02, cm, 09/17/21 8:57:00 EDT, Height Start Date: 09/20/21 Status: OrderedProAir HFA 90 mcg/inh inhalation aerosol with adapter 2, puffs, Inhalation, Every 4 hours, PRN, for 90 days, # 3 each, Refills 0, Tot. Refills 0, Physician Stop 05/02/22 16:36:00 EST, 02/01/22 16:36:00 EDT, Route to Pharmacy Electronically, [id number], [id number], 160.02... Start Date: 02/01/22 Stop Date: 05/02/22 Status: Ordered Problem List Condition Confirmation Course Effective Dates Status Health Stat us Informant COPD with asthma Confirmed Active Type 2 Diabetes Confirmed Active Mellitus with peripheral neuropathy Family history of Confirmed Active early CAD Hypertension Confirmed Active Tobacco use Confirmed Active Social History Social History Type Response Smoking Status Current every day smoker; To bacco user in household: Yes; Type: Cigarettes; Other: more than 5 a day; entered on: 12/28/16 Sex Patient Care team information PersonnelName: Danica Vallejo NP Address: Address: [address] [place] [address]
--- OUTSIDE RECORDS SUMMARY | 2022-04-30 22:59 | XMS_ITS | Continuity of Care Document ---
:1970 Author Organization [facility] Address [address] [place] [address]- Care Team Providers Name Role Phone Medina Moss MD Primary Care Physician Encounter [facility] [place] Date(s): 06/24/20 - 06/24/[address] [address]- Discharge Disposition: A-D/C Walkout Attending Physician: Not on Staff, Attending MD Admitting Physician: Not on Staff, Admitting MD Referring Physician: Not on Staff, Referring MD Allergies, Adverse Reactions, Alerts Substance Reaction Severity Status penicillin Hives Active Medications Advair HFA 115 mcg / 21 mcg 2 puffs, Inhalation, 2 times a day, # 1 each, 5 Refills, Maintenance, 03/24/20 14:19:00 EDT, Aerosol, [id number], 2 puffs Inhalation 2 times a day, 160.02, cm, 11/22/19 13:52:00 EDT, Height, 74, kg, 01/04/19 9:01:00 EDT, Dry Weight Start Date: 03/24/20 Status: Orderedalbuterol 0.083% inhalation solution 3 mL [...] Daily, # 30 tablet, 5 Refills, Maintenance, 03/24/20 14:24:00 EDT, [facility]pharmacy #[id number], 160.02, cm, 11/22/19 13:52:00 EDT, Height, 74, kg, 01/04/19 9:01:00 EDT, Dry Weight Start Date: 03/24/20 Stop Date: 09/20/20 Status: Orderedatorvastatin 10 mg oral tablet 1 tablet = 10 mg, By Mouth, Daily, Cholesterol medication, # 30 tablet, 5 Refills, Maintenance, 03/24/20 14:24:00 EDT, [facility]/pharmacy #[id number], 160.02, cm, 11/22/19 13:52:00 EDT, Height, 74, kg, 01/04/19 9:01:00 EDT, Dry Weight Start Date: 03/24/20 Status: OrderedBydureon Pen 2 mg subcutaneous injection, extended release See Instructions, INJECT 2 MG BY SUBCUTANEOUS INFUSION EVERY 7 DAYS, # 4 Unknown, 5 Refills, 03/24/20 14:24:00 EDT, [facility]/pharmacy #[id number], 160.02, cm, 11/22/19 13:52:00 EDT, Height, 74, kg, 01/04/19 9:01:00 EDT, Dry Weight Start Date: 03/24/20 Status: Orderedcyclobenzaprine 5 mg oral tablet 1 tablet = 5 mg, By Mouth, 3 times a day, PRN Spasm, # 40 tablet, 3 Refills, Maintenance, 03/24/20 14:26:00 EDT, Tablet, [facility]/pharm[facility] #[id number], 160.02, cm, 11/22/19 13:52:00 EDT, Height, 74, kg, 01/04/19 9:01:00 EDT, Dry Weight Start Date: 03/24/20 Status: OrderedFreestyle Lite Test Strips See Instructions, [...] capsule, Refills 5, Tot. Refills 5, Maintenance, 03/24/20 14:25:00 EDT, Route to Pharmacy Electronically, [facility]207, 160.02, cm, 11/22/19 13:52:00 EDT, Height, 74, kg, 01/04/19 9:01:00 EDT,... Start Date: 03/24/20 Status: Orderedglipizide-metformin 5 mg-500 mg oral tablet 2 tablet, By Mouth, 2 times a day, DIABETES, # 60 tablet, 5 Refills, Maintenance, 03/24/20 14:25:00 EDT, Tablet, [facility]/pharmacy #[id number], 2 tablet By Mouth 2 times a day,Instr:DIABETES, 160.02, cm, 11/21/2012:52:00 EDT, Height, 74, kg, 01/04/19 9:01:00 ED... Start Date: 03/24/20 Status: [facility] See Instructions, # 1 each, Maintenance, Monitor BP once daily and write down on your BP log. Dx: Essential Hypertension I10, 03/24/20 14:31:00 EDT, Compound Start Date: 03/24/20 Status: Orderedhydrochlorothiazide-lisinopril 12.5 mg-20 mg oral tablet 1 tablet, By Mouth, Daily, NEW BLOOD PRESSURE MEDICATION, # 30 tablet, 2 Refills, Maintenance, 03/24/20 14:22:00 EDT, [facility]/pharm[facility] #[id number], please cancel lisinopril, 1 tablet By Mouth Daily,Instr:NEW BLOOD PRESSURE MEDICATION, 160.02, cm, 11/22/19 13:52... Start Date: 03/24/20 Status: OrderedIncruse Ellipta 62.5 mcg/inh inhalation powder 1 each, Inhalation, Every 24 hours, doses should be taken at least 24 hours apart, # 30 each, 5 Refills, Maintenance, 03/24/20 14:20:00 EDT, Powder, [facility]/pharmacy #207, 160.02, cm, 11/22/19 13:52:00 EDT, Height, 74, kg, 01/04/19 9:01:00 EDT, Dry Weight Start Date: 03/24/20 Status: OrderedMacrobid macrocrystals-monohydrate 100 mg oral capsule 1 capsule = 100 mg, By Mouth, 2 times a day, for 7 days, # 14 capsule, 0 Refills, Acute 06/29/20 16:00:00 EST, 06/22/20 16:00:00 EST, Capsule, [facility]/pharm[facility] #[id number], Partial fill upon patient request if the prescription is for a schedule II opioid drug.,... Start Date: 06/22/20 Stop Date: 06/29/20 Status: OrderedNebulizer mask and tubing Nebulizer mask and tubing, See Instructions, # 1 each, Refills 0, Tot. Refills 0, Maintenance, Dx: Asthma J44.9. To be used with albuterol, 12/17/19 10:33:00 EDT, Compound Start Date: 12/17/19 Status: OrderedProAir HFA 90 mcg/inh inhalation aerosol with adapter See Instructions, INHALE 2 PUFFS EVERY 4 HOURS NEEDED FOR WHEEZING/SHORTNESS OF BREATH, # 2 each,Refills 5, Tot. Refills 5, 03/24/20 14:20:00 EDT, Instructions Replace Required Details, Route to Pharmacy Electronically, [id number]... Start Date: 03/24/20 Status: OrderedSingulair 10 mg oral tablet 10 mg, 1, tablet, By Mouth, Daily in PM, ASTHMA, # 30 tablet, Refills 11, Tot. Refills 11, Maintenance, 03/24/20 14:19:00 EDT, Route to Pharmacy Electronically, [facility] #[id number], 160.02, cm, 11/21/2012:52:00 EDT, Height, 74, kg, 01/04/19 9:01:00 ED... Start Date: 03/24/20 Status: Ordered Problem List Condition Effective Dates Status Health Status Informant COPD with asthma(Confirmed) Active Type 2 Diabetes Mellitus with Active peripheral neuropathy(Confirmed) Family history of early CAD(Confirmed) Active Hypertension(Confirmed) Active Tobacco use(Confirmed) Active Results Orders for Microbiology Reports Name Date Urine Culture (URINE CULTURE) 06/24/20 Microbiology Reports TEST:Urine Culture STATUS:Unauthenticated BODY SITE: SOURCE:URINE COLLECTED DATE/TIME:06/24/20 6:04 PMUrine Culture SPECIMEN DESCRIPTION : URINE CLEAN CATCH/MIDSTREAM SPECIAL REQUESTS : NONE Reflexed from [id number] REPORT STATUS : PRELIMINARY REPORT Vital Signs Most recent to oldest [Reference Range]: 1 Oxygen Saturation [94-100 %] 100 % (06/24/20 5:03 PM) Pulse Rate [55-90 bpm] 115 bpm *H* (06/24/20 5:03 PM) Blood Pressure [90-138/55-84 mm Hg] 148/96 mm Hg *H* (06/24/20 5:03 PM) Respiratory Rate [16-30 br/min] 18 br/min (06/24/20 5:03 PM) Temperature [96.8-100.4 DegF] 98.1 DegF (06/24/20 5:03 PM) Mode of Delivery (Oxygen) Room air (06/24/20 5:03 PM) Blood pressure sites Arm, left (06/24/20 5:03 PM) Temperature Route Oral (06/24/20 5:03 PM) Social History Social History Type Response Smoking Status Current every day smoker; To bacco user in household: Yes; Other: 2 packs a day; entered on: 01/03/17 Sex
--- OUTSIDE RECORDS SUMMARY | 2022-04-30 22:59 | XMS_ITS | Continuity of Care Document ---
:[address] [facility] Address [address] [place] [address]- Care Team Providers Name Role Phone Genevieve MORA, Danica Primary Care Physician Encounter [facility] [place] Date(s): 03/25/22 - 04/24/22 [facility] [address] [place], [place] [address] Allergies, Adverse Reactions, Alerts Substance Reaction Severity Status amoxicillin Active penicillin Hives Active Immunizations Given and Recorded Vaccine Date Status Refusal Reason influenza virus vaccine, inactivated 03/16/21 Recorded SARS-CoV-2 (COVID-19) mRNA-1273 vaccine 11/08/20 Recorded SARS-CoV-2 (COVID-19) mRNA-1273 vaccine 10/11/20 Recorded Medications Advair HFA 115 mcg / 21 mcg 2 puffs, Inhalation, 2 times a day, Disregard previous script sent to pharmacy, # 1 each, 2 Refills,Maintenance, 03/14/22 9:19:00 EDT, [facility]/pharmacy #[id number], 2 puffs Inhalation 2 times a day,Instr:Disregard previous script sent to pharmacy, 160.02, cm,... Start Date: 03/14/22 Status: OrderedAlcohol Wipes See Instructions, # 1 box, Refills 6, Tot. Refills 6, Maintenance, Type 2 Diabetes Mellitus ICD 10 E11.9. Test 3 times daily., 01/04/19 9:49:06 EDT, Compound Start Date: 01/04/19 Status: OrderedamLODIPine 10 mg oral tablet 10 mg, 1, tablet, By Mouth, Daily, # 30 tablet, Refills 2, Tot. Refills 2, Maintenance, 02/11/22 17:35:00 EDT, Route to Pharmacy Electronically, [facility]/pharmacy #[id number], Partial fill upon patient request ifthe prescription is for a schedule II opioid drug... Start Date: 02/11/22 Status: OrderedAspirin Enteric Coated 81 mg oral delayed release tablet 1 tablet = 81 mg, By Mouth, Daily, # 30 tablet, 5 Refills, Maintenance, 02/11/22 17:36:00 EDT, [facility]/pharmacy #[id number], 160.02, cm, 02/07/22 10:35:00 EDT, Height Start Date: 02/11/22 Stop Date: 08/10/22 Status: Orderedatorvastatin 80 mg oral tablet 1 tablet = 80 mg, By Mouth, Daily at bedtime, # 30 tablet, 0 Refills, Maintenance, 03/28/22 14:31:00EDT, Tablet, [facility]/pharmacy #[id number], Partial fill upon patient request if the prescription is for a schedule II opioid drug., 63, cm, 03/28/22 11:00:00 ED... Start Date: 03/28/22 Status: OrderedFreestyle Lite Lancets See Instructions, # [...] 02/11/22 17:35:00 EDT, Route to Pharmacy Electronically, [facility]/pharmacy #[id number], 160.02, cm, 02/07/22 10:35:00 EDT, Height Start Date: 02/11/22 Status: Orderedglipizide-metformin 5 mg-500 mg oral tablet 2 tablet, By Mouth, 2 times a day, DIABETES, # 120 tablet, 2 Refills, Maintenance, 02/11/22 17:35:00EDT, Tablet, [facility]/pharmacy #[id number], 2 tablet By Mouth 2 times a day,x30 days,Instr:DIABETES, 160.02, cm, 02/07/22 10:35:00 EDT, Height Start Date: 02/11/22 Stop Date: 05/12/22 Status: OrderedHome Blood Pressure Monitor See Instructions, # 1 each, Maintenance, Monitor BP once daily and write down on your BP log. Dx: Essential Hypertension I10, 03/24/20 14:31:00 EDT, Compound Start Date: 03/24/20 Status: Orderedincentive Spirometer incentive Spirometer, See Instructions, [...] 2 Refills, Maintenance, 02/11/22 17:35:00 EDT, Powder, [facility]/pharmacy #[id number], 160.02, cm, 02/07/22 10:35:00 EDT, Height Start Date: 02/11/22 Status: OrderedLantus Solostar Pen 100 units/mL subcutaneous solution = 20 units, Subcutaneous Injection, Daily at bedtime, Dose increase, # 15 mL, 1 Refills, Maintenance, 02/11/22 17:36:00 EDT, Solution, [facility]/pharmacy #207, Partial fill upon patient request if the prescription is for a schedule II opioid drug., 160.02,... Start Date: 02/11/22 Status: OrderedLasix 40 mg oral tablet 40 mg, 1, tablet, By Mouth, Daily, # 30 tablet, Refills 0, Tot. Refills 0, Maintenance, 03/28/22 14:06:00 EDT, Route to Pharmacy Electronically, [facility]/pharmacy #[id number], Partial fill upon patient request ifthe prescription is for a schedule II opioid drug... Start Date: 03/28/22 Status: OrderedLeft Offloading shoe with insole Left Offloading shoe with insole, See Instructions, # 1 each, Refills 0, Tot. Refills 0, Maintenance, Use as needed when walking Dx: Left DM foot wound s/p surgery ICD 10: S91.302D, 02/07/22 10:43:00 EDT, Supply Start Date: 02/07/22 Status: Orderedlisinopril 5 mg oral tablet 2.5 mg, 0.5, tablet, By Mouth, Daily, # 15 tablet, Refills 0, Tot. Refills 0, Maintenance, 03/28/22 14:06:00 EDT, Route to Pharmacy Electronically, [facility]/pharmacy #[id number], Partial fill upon patient requestif the prescription is for a schedule II opioid d... Start Date: 03/28/22 Status: Orderedmontelukast 10 mg oral tablet 1, tablet, By Mouth, Daily in PM, Disregard previous script, # 30 tablet, Refills 1, Tot. Refills 1,01/31/22 10:36:00 EDT, Route to Pharmacy Electronically, [facility]/pharmacy #[id number], 160.02, cm, 12/28/21 11:08:00 EDT, Height Start Date: 01/31/22 Status: OrderedNebulizer mask and tubing Nebulizer mask and tubing, See Instructions, # 1 each, Refills 0, Tot. Refills 0, Maintenance, Dx: Asthma J44.9. To be used with albuterol, 12/17/19 10:33:00 EDT, Compound Start Date: 12/17/19 Status: OrderedPen [place], 31 G x 5 mm BD Ultra Fine III See Instructions, # 100 each, Maintenance, Use daily with Lantus solostar pen Dx: Type 2 DM ICD 10: E11.9, 09/20/21 8:38:00 EDT, Supply, 160.02, cm, 04/08/22 8:57:00 EDT, Height Start Date: 09/20/21 Status: OrderedPlavix 75 mg oral tablet 75 mg, 1, tablet, By Mouth, Daily, # 30 tablet, Refills 0, Tot. Refills 0, Maintenance, 03/28/22 14:05:00 EDT, Route to Pharmacy Electronically, [facility]/pharmacy #[id number], Partial fill upon patient request ifthe prescription is for a schedule II opioid drug... Start Date: 03/28/22 Status: OrderedProAir HFA 90 mcg/inh inhalation aerosol with adapter 2, puffs, Inhalation, Every 4 hours, PRN, for 90 days, # 3 each, Refills 0, Tot. Refills 0, Physician Stop 05/02/22 16:36:00 EST, 02/01/22 16:36:00 EDT, Route to Pharmacy Electronically, [id number], [facility]/pharmacy #[id number], 160.02... Start Date: 02/01/22 Stop Date: 05/02/22 Status: OrderedToprol XL 25 mg oral tablet, extended release 25 mg, 1, tablet, By Mouth, Daily, # 30 tablet, Refills 0, Tot. Refills 0, Maintenance, 03/28/22 14:07:00 EDT, Route to Pharmacy Electronically, [facility]/pharmacy #[id number], Partial fill upon patient request ifthe prescription is for a schedule II opioid drug... Start Date: 03/28/22 Stop Date: 04/27/22 Status: Ordered Problem List Condition Confirmation Course Effective Dates Status Health Stat us Informant COPD with asthma Confirmed Active CHF (congestive Confirmed Active heart failure) Type 2 Diabetes Confirmed Active Mellitus with peripheral neuropathy Family history of Confirmed Active early CAD Hypertension Confirmed Active NSTEMI (non-ST Confirmed Active elevated myocardial infarction) Tobacco use Confirmed Active Social History Social History Type Response Smoking Status Current every day smoker; To bacco user in household: Yes; Type: Cigarettes; Other: more than 5 a day; entered on: 12/28/16 Sex Patient Care team information Care Team PersonnelName: Janel Hart RN Position: [facility] RN Member Role: Primary Care Nurse Name: Danica Vallejo NP Position: [facility] PCO Associate Professional Member Role: PCP Address: Address: [address] [place] [address]- Care Team Related PersonsName: ASHLEY MOELLER Address: [address] [place] [address]
--- OUTSIDE RECORDS SUMMARY | 2022-04-30 22:59 | XMS_ITS | Continuity of Care Document ---
:[address] [facility] Address [address] [place] [address]- Care Team Providers Name Role Phone Medina Moss MD Primary Care Physician Encounter [facility] [place] Date(s): 02/05/20 - 03/06/20 [facility] [address] [place] [address]- [facility] Allergies, Adverse Reactions, Alerts Substance Reaction Severity [...] tablet, 5 Refills, Maintenance, 10/29/19 13:46:00 EDT, [id number], 160.02, cm, 01/04/19 9:01:00 EDT, Height, 74, kg, 01/04/19 9:01:00 EDT, Dry Weight Start Date: 10/29/19 Stop Date: 04/26/20 Status: Orderedatorvastatin 10 mg oral tablet 1 tablet = 10 mg, By Mouth, Daily, Cholesterol medication, # 30 tablet, 5 Refills, Maintenance, 10/30/19 12:11:00 EDT, [facility]/pharmacy #1, 160.02, cm, 10/30/19 9:28:00 EDT, Height, 74, kg, 01/04/19 9:01:00 EDT, Dry Weight Start Date: 10/30/19 Status: OrderedBydureon Pen 2 mg subcutaneous injection, extended release See Instructions, INJECT 2 MG BY SUBCUTANEOUS INFUSION EVERY 7 DAYS, # 4 Unknown, 5 Refills, 01/09/20 10:59:00 EDT, [facility]/pharmacy #[id number], 160.02, cm, 11/22/19 13:52:00 EDT, Height, 74, kg, 01/04/19 9:01:00 EDT, Dry Weight Start Date: 01/09/20 Status: Orderedcyclobenzaprine 5 mg oral tablet 1 tablet = 5 mg, By Mouth, 3 times a day, PRN Spasm, # 40 tablet, 3 Refills, Maintenance, 10/30/19 12:12:00 EDT, Tablet, [facility]/pharmacy #[id number], 160.02, cm, 10/30/19 9:28:00 EDT, Height, 74, [...] 10/30/19 12:12:00 EDT, Route to Pharmacy Electronically, [facility]/pharmacy #[id number], 160.02, cm, 10/30/19 9:28:00 EDT, Height, 74, kg, 01/04/19 9:01:00 EDT,... Start Date: 10/30/19 Status: Orderedglipizide-metformin 5 mg-500 mg oral tablet 2 tablet, By Mouth, 2 times a day, DIABETES, # 60 tablet, 5 Refills, Maintenance, 10/30/19 12:13:00 EDT, Tablet, [facility]/pharmacy #[id number], 2 tablet By Mouth 2 times a day,Instr:DIABETES, 160.02, cm, 209:28:00 EDT, Height, 74, kg, 01/04/19 9:01:00 EDT... Start Date: 10/30/19 Status: Orderedlisinopril 10 mg oral tablet 10 mg, 1, tablet, By Mouth, Daily, BLOOD PRESSURE, # 30 tablet, Refills 5, Tot. Refills 5, Maintenance, 10/30/19 12:13:00 EDT, Route to Pharmacy Electronically, [facility]/pharmacy #[id number], Appt required for further refills, 160.02, [...] Replace Required Details, Route to Pharmacy Electronically, [id number], [facility] STORE... Start Date: 10/29/19 Status: OrderedSingulair 10 mg oral tablet 10 mg, 1, tablet, By Mouth, Daily in PM, ASTHMA, # 30 tablet, Refills 5, Tot. Refills 5, Maintenance, 10/30/19 12:07:00 EDT, Route to Pharmacy Electronically, [facility]/pharmacy #[id number], 160.02, cm, 10/30/19 9:28:00 EDT, Height, [...]
--- OUTSIDE RECORDS SUMMARY | 2022-04-30 22:59 | XMS_ITS | Continuity of Care Document ---
:1970 Author Organization [facility] Address [address] [place] [address]- Care Team Providers Name Role Phone Isa CISNEROS, Medina Primary Care Physician Encounter [facility] Date(s): 09/21/20 - 10/21/20 [facility] [address] [place], [place] [address] Allergies, Adverse Reactions, Alerts Substance Reaction Severity Status penicillin Hives Active Immunizations Given and Recorded Vaccine Date Status Refusal Reason SARS-CoV-2 (COVID-19) [id number] vaccine 10/11/20 Recorded Medications Advair HFA 115 mcg / 21 mcg 2 puffs, Inhalation, 2 times a day, # 1 each, 5 Refills, Maintenance, 09/21/20 12:16:00 EDT, Aerosol, [id number], 2 puffs Inhalation 2 times a day, 160.02, cm, 11/22/19 13:52:00 EDT, Height, 74, kg, 01/04/19 9:01:00 EDT, Dry Weight Start Date: 09/21/20 Status: Orderedalbuterol 0.083% inhalation solution 3 mL = 2.5 mg, Inhalation, Every 4 hours, PRN for wheezing, # 25 each, 5 Refills, Maintenance, 08/14/20 13:09:00 EST, Solution, [id number], 160.02, cm, 11/22/19 13:52:00 EDT, Height, 74, kg, 01/04/19 9:01:00 EDT, Dry Weight Start Date: 08/14/20 Status: OrderedAlcohol Wipes See Instructions, # 1 box, Refills 6, Tot. Refills 6, Maintenance, Type 2 Diabetes Mellitus ICD 10 E11.9. Test 3 times daily., 01/04/19 9:49:06 EDT, Compound Start Date: 01/04/19 Status: OrderedAspirin Enteric Coated 81 mg oral delayed release tablet 1 tablet = 81 mg, By Mouth, Daily, # 30 tablet, 5 Refills, Maintenance, 09/21/20 12:16:00 EDT, [facility]/pharmacy #[id number], 160.02, cm, 11/22/19 13:52:00 EDT, Height, 74, kg, 01/04/19 9:01:00 EDT, Dry Weight Start Date: 09/21/20 Stop Date: 03/20/21 Status: Orderedatorvastatin 10 mg oral tablet 1 tablet = 10 mg, By Mouth, Daily, Cholesterol medication, # 30 tablet, 5 Refills, Maintenance, 09/21/20 12:16:00 EDT, [facility]/pharmacy #[id number], 160.02, cm, 11/22/19 13:52:00 EDT, Height, 74, kg, 01/04/19 9:01:00 EDT, Dry Weight Start Date: 09/21/20 Status: OrderedBydureon Pen 2 mg subcutaneous injection, extended release See Instructions, INJECT 2 MG BY SUBCUTANEOUS INFUSION EVERY 7 DAYS, # 4 Unknown, 5 Refills, 09/21/20 12:16:00 EDT, [facility]/pharmacy #[id number], 160.02, cm, 11/22/19 13:52:00 EDT, Height, 74, kg, 01/04/19 9:01:00 EDT, Dry Weight Start Date: 09/21/20 Status: Orderedcyclobenzaprine 5 mg oral tablet 1 tablet = 5 mg, By Mouth, 3 times a day, PRN Spasm, # 40 tablet, 3 Refills, Maintenance, 03/24/20 14:26:00 EDT, Tablet, [facility]/pharmacy #[id number], 160.02, cm, 11/22/19 13:52:00 EDT, Height, [...] capsule, Refills 5, Tot. Refills 5, Maintenance, 09/21/20 12:16:00 EDT, Route to Pharmacy Electronically, [facility]/pharmacy #207, 160.02, cm, 11/22/19 13:52:00 EDT, Height, 74, kg, 01/04/19 9:01:00 EDT,... Start Date: 09/21/20 Status: Orderedglipizide-metformin 5 mg-500 mg oral tablet 2 tablet, By Mouth, 2 times a day, DIABETES, # 60 tablet, 5 Refills, Maintenance, 09/21/20 12:16:00 EDT, Tablet, [facility]/pharmacy #207, 2 tablet By Mouth 2 times a day,Instr:DIABETES, 160.02, cm, 11/21/2012:52:00 EDT, Height, 74, kg, 01/04/19 9:01:00 ED... Start Date: 09/21/20 Status: OrderedHome Blood Pressure Monitor See Instructions, # 1 each, Maintenance, Monitor BP once daily and write down on your BP log. Dx: Essential Hypertension I10, 03/24/20 14:31:00 EDT, Compound Start Date: 03/24/20 Status: Orderedhydrochlorothiazide-lisinopril 12.5 mg-20 mg oral tablet 1 tablet, By Mouth, Daily, NEW BLOOD PRESSURE MEDICATION, # 30 tablet, 5 Refills, Maintenance, 07/01/20 17:14:00 EST, [facility]/pharmacy #[id number], please cancel lisinopril, 1 tablet By Mouth Daily,Instr:NEW BLOOD PRESSURE MEDICATION, 160.02, cm, 11/22/19 13:52... Start Date: 07/01/20 Status: OrderedIncruse Ellipta 62.5 mcg/inh inhalation powder 1 each, Inhalation, Every 24 hours, doses should be taken at least 24 hours apart, # 30 each, 5 Refills, Maintenance, 09/21/20 12:17:00 EDT, Powder, [facility]/pharmacy #[id number], 160.02, cm, 11/22/19 13:52:00 EDT, Height, 74, kg, 01/04/19 9:01:00 EDT, Dry Weight Start Date: 09/21/20 Status: OrderedNebulizer mask and tubing Nebulizer mask and tubing, See Instructions, # 1 each, Refills 0, Tot. Refills 0, Maintenance, Dx: Asthma J44.9. To be used with albuterol, 12/17/19 10:33:00 EDT, Compound Start Date: 12/17/19 Status: OrderedProAir HFA 90 mcg/inh inhalation aerosol with adapter 2, puffs, Inhalation, Every 4 hours, PRN, for 90 days, # 3 each, Refills 2, Tot. Refills 2, Physician Stop 07/02/21 16:18:00 EST, 10/05/20 16:18:00 EDT, Route to Pharmacy Electronically, [id number], [facility]/pharmacy #[id number], 160.02... Start Date: 10/05/20 Stop Date: 07/02/21 Status: OrderedSingulair 10 mg oral tablet 10 mg, 1, tablet, By Mouth, Daily in PM, ASTHMA, # 30 tablet, Refills 11, Tot. Refills 11, Maintenance, 03/24/20 14:19:00 EDT, Route to Pharmacy Electronically, [facility]/pharmacy #[id number], 160.02, cm, 11/21/2012:52:00 EDT, Height, 74, [...]
--- OUTSIDE RECORDS SUMMARY | 2022-04-30 23:00 | XMS_ITS | Continuity of Care Document ---
:[address] [facility] Address [address] [place] [address]- Care Team Providers Name Role Phone Medina Moss MD Primary Care Physician Encounter [facility] Date(s): 03/10/20 - 04/09/20 [facility] [address] [place] [address]- [facility] Allergies, Adverse Reactions, Alerts Substance Reaction Severity [...] tablet, 5 Refills, Maintenance, 03/24/20 14:24:00 EDT, [id number], 160.02, cm, 11/22/19 13:52:00 EDT, Height, 74, kg, 01/04/19 9:01:00 EDT, Dry Weight Start Date: 03/24/20 Stop Date: 09/20/20 Status: Orderedatorvastatin 10 mg oral tablet 1 tablet = 10 mg, By Mouth, Daily, Cholesterol medication, # 30 tablet, 5 Refills, Maintenance, 03/24/20 14:24:00 EDT, [facility]/pharmacy #[id number], 160.02, cm, 11/22/19 13:52:00 EDT, Height, 74, kg, 01/04/19 9:01:00 EDT, Dry Weight Start Date: 03/24/20 Status: OrderedBydureon Pen 2 mg subcutaneous injection, extended release See Instructions, INJECT 2 MG BY SUBCUTANEOUS INFUSION EVERY 7 DAYS, # 4 Unknown, 5 Refills, 03/24/20 14:24:00 EDT, [facility]/pharmacy #[id number], 160.02, cm, 11/22/19 13:52:00 EDT, Height, 74, kg, 01/04/19 9:01:00 EDT, Dry Weight Start Date: 03/24/20 Status: Orderedcyclobenzaprine 5 mg oral tablet 1 tablet = 5 mg, By Mouth, 3 times a day, PRN Spasm, # 40 tablet, 3 Refills, Maintenance, 03/24/20 14:26:00 EDT, Tablet, [facility]/pharmacy #[id number], 160.02, cm, 11/22/19 13:52:00 EDT, [...] 03/24/20 14:25:00 EDT, Route to Pharmacy Electronically, [facility]/pharmacy #[id number], 160.02, cm, 11/22/19 13:52:00 EDT, Height, 74, kg, 01/04/19 9:01:00 EDT,... Start Date: 03/24/20 Status: Orderedglipizide-metformin 5 mg-500 mg oral tablet 2 tablet, By Mouth, 2 times a day, DIABETES, # 60 tablet, 5 Refills, Maintenance, 03/24/20 14:25:00 EDT, Tablet, [facility]/pharmacy #[id number], 2 tablet By Mouth 2 times a day,Instr:DIABETES, 160.02, cm, 11/21/2012:52:00 EDT, Height, 74, kg, 01/04/19 9:01:00 ED... Start Date: 03/24/20 Status: OrderedHome Blood Pressure Monitor See Instructions, # 1 each, Maintenance, Monitor BP once daily and write down on your BP log. Dx: Essential Hypertension I10, 03/24/20 14:31:00 EDT, Compound Start Date: 03/24/20 Status: Orderedhydrochlorothiazide-lisinopril 12.5 mg-20 mg oral tablet 1 tablet, By Mouth, Daily, NEW BLOOD PRESSURE MEDICATION, # 30 tablet, 2 Refills, Maintenance, 03/24/20 14:22:00 EDT, [facility]/pharmacy #[id number], please cancel lisinopril, 1 tablet By Mouth Daily,Instr:NEW BLOOD PRESSURE MEDICATION, 160.02, cm, 11/22/19 13:52... Start Date: 03/24/20 Status: OrderedIncruse Ellipta 62.5 mcg/inh inhalation powder 1 each, Inhalation, Every 24 hours, doses should be taken at least 24 hours apart, # 30 each, 5 Refills, Maintenance, 03/24/20 14:20:00 EDT, Powder, [facility]/pharmacy #207, 160.02, cm, 11/22/19 13:52:00 EDT, Height, 74, kg, 01/04/19 9:01:00 EDT, Dry Weight Start Date: 03/24/20 Status: OrderedNebulizer mask and tubing Nebulizer mask [...] Replace Required Details, Route to Pharmacy Electronically, [id number]... Start Date: 03/24/20 Status: OrderedSingulair 10 mg oral tablet 10 mg, 1, tablet, By Mouth, Daily in PM, ASTHMA, # 30 tablet, Refills 11, Tot. Refills 11, Maintenance, 03/24/20 14:19:00 EDT, Route to Pharmacy Electronically, [facility]/pharmacy #[id number], 160.02, cm, 11/21/2012:52:00 EDT, Height, [...]
--- OUTSIDE RECORDS SUMMARY | 2022-04-30 23:00 | XMS_ITS | Continuity of Care Document ---
:1970 Author Organization [facility] Address [address] [place] [address]- Care Team Providers Name Role Phone Genevieve MORA, Danica Primary Care Physician Encounter [facility] Date(s): 09/16/21 - 10/16/21 [facility] [address] [place], [place] [address] Allergies, Adverse Reactions, Alerts Substance Reaction Severity Status amoxicillin Active penicillin Hives Active Immunizations Given and Recorded Vaccine Date Status Refusal Reason influenza virus vaccine, inactivated 03/16/21 Recorded SARS-CoV-2 (COVID-19) mRNA-1273 vaccine 11/08/20 Recorded SARS-CoV-2 (COVID-19) mRNA-1273 vaccine 10/11/20 Recorded Medications Advair HFA 115 mcg / 21 mcg 2 puffs, Inhalation, 2 times a day, # 1 each, 2 Refills, Maintenance, 08/30/21 7:52:00 EDT, A[facility]ol,[id number], 2 puffs Inhalation 2 times a day, 160.02, cm, 08/26/21 10:47:00 EDT, Height Start Date: 08/30/21 Status: Orderedalbuterol 0.083% inhalation solution 3 mL = 2.5 mg, Inhalation, Every 6 hours, PRN for wheezing, # 25 each, 1 Refills, Maintenance, 08/17/21 12:19:00 EST, Solution, [id number], Partial fill upon patient request if the prescriptionis for a schedule II opioid drug., 160.02, cm, 06... Start Date: 08/17/21 Status: OrderedAlcohol Wipes See Instructions, # 1 box, Refills 6, Tot. Refills 6, Maintenance, Type 2 Diabetes Mellitus ICD 10 E11.9. Test 3 times daily., 01/04/19 9:49:06 EDT, Compound Start Date: 01/04/19 Status: OrderedamLODIPine 10 mg oral tablet 10 mg, 1, tablet, By Mouth, Daily, # 30 tablet, Refills 2, Tot. Refills 2, Maintenance, 08/30/21 7:52:00 EDT, Route to Pharmacy Electronically, [facility]/pharmacy #[id number], Partial fill upon patient request if the prescription is for a schedule II opioid drug.... Start Date: 08/30/21 Status: OrderedAspirin Enteric Coated 81 mg oral delayed release tablet 1 tablet = 81 mg, By Mouth, Daily, # 30 tablet, 5 Refills, Maintenance, 08/30/21 7:52:00 EDT, [facility]/pharmacy #[id number], 160.02, cm, 08/26/21 10:47:00 EDT, Height Start Date: 08/30/21 Stop Date: 02/26/22 Status: Orderedatorvastatin 10 mg oral tablet 1 tablet = 10 mg, By Mouth, Daily, Cholesterol medication, # 30 tablet, 2 Refills, Maintenance, 08/30/21 7:52:00 EDT, [facility]/pharmacy #[id number], 160.02, cm, 08/26/21 10:47:00 EDT, Height Start Date: 08/30/21 Status: OrderedFreestyle Lite Test Strips See Instructions, # 100 each, Refills 3, Tot. Refills 3, Maintenance, Type 2 Diabetes Mellitus ICD 10 E 11.9. Test 3 times daily., 12/22/20 8:35:00 EDT, Compound, 160.02, cm, 11/22/19 13:52:00 EDT, Height, 74, kg, 01/04/19 9:01:00 EDT, Dry Weight Start Date: 12/22/20 Status: Orderedgabapentin 300 mg oral capsule 2, capsule, By Mouth, Daily at bedtime, # 60 capsule, Refills 3, Tot. Refills 3, 07/30/21 11:08:00 EST, Route to Pharmacy Electronically, [facility]/pharmacy #[id number], 160.02, cm, 11/22/19 13:52:00 EDT, Height Start Date: 07/30/21 Status: Orderedglipizide-metformin 5 mg-500 mg oral tablet 2 tablet, By Mouth, 2 times a day, DIABETES, # 60 tablet, 2 Refills, Maintenance, 08/30/21 7:52:00 EDT, Tablet, [facility]/pharmacy #[id number], 2 tablet By Mouth 2 times a day,Instr:DIABETES, 160.02, cm, 08/26/21 10:47:00 EDT, Height Start Date: 08/30/21 Status: OrderedHome Blood Pressure Monitor See Instructions, # 1 each, Maintenance, Monitor BP once daily and write down on your BP log. Dx: Essential Hypertension I10, 03/24/20 14:31:00 EDT, Compound Start Date: 03/24/20 Status: Orderedhydrochlorothiazide-lisinopril 12.5 mg-20 mg oral tablet 1 tablet, By Mouth, Daily, NEW BLOOD PRESSURE MEDICATION, # 30 tablet, 2 Refills, Maintenance, 08/30/21 7:52:00 EDT, [facility]/pharmacy #207, please cancel lisinopril, 1 tablet By Mouth Daily,Instr:NEW BLOOD PRESSURE MEDICATION, 160.02, cm, 08/26/21 10:47:... Start Date: 08/30/21 Status: OrderedIncruse Ellipta 62.5 mcg/inh inhalation powder 1 each, Inhalation, Every 24 hours, doses should be taken at least 24 hours apart, # 30 each, 2 Refills, Maintenance, 08/30/21 7:52:00 EDT, Powder, [facility]/pharmacy #[id number], 160.02, cm, 08/26/21 10:47:00 EDT, Height Start Date: 08/30/21 Status: OrderedLantus Solostar Pen 100 units/mL subcutaneous solution = 10 units, Subcutaneous Injection, Daily at bedtime, # 15 mL, 1 Refills, Maintenance, 09/20/21 8:37:00 EDT, Solution, [facility]/pharmacy #[id number], Partial fill upon patient request if the prescription is for aschedule II opioid drug., 160.02, cm, 09/17/21 8:... Start Date: 09/20/21 Status: OrderedNebulizer mask and tubing Nebulizer mask and tubing, See Instructions, # 1 each, Refills 0, Tot. Refills 0, Maintenance, Dx: Asthma J44.9. To be used with albuterol, 12/17/19 10:33:00 EDT, Compound Start Date: 12/17/19 Status: OrderedPen [place], 31 G x 5 mm BD Ultra Fine III See Instructions, # 100 each, Maintenance, Use daily with Lantus solostar pen Dx: Type 2 DM ICD 10: E11.9, 09/20/21 8:38:00 EDT, Supply, 160.02, cm, 09/17/21 8:57:00 EDT, Height Start Date: 09/20/21 Status: OrderedSingulair 10 mg oral tablet 10 mg, 1, tablet, By Mouth, Daily in PM, ASTHMA, # 30 tablet, Refills 2, Tot. Refills 2, Maintenance, 08/30/21 7:52:00 EDT, Route to Pharmacy Electronically, [facility]/pharmacy #[id number], 160.02, cm, 08/26/21 10:47:00 EDT, Height Start Date: 08/30/21 Status: Ordered Problem List Condition Effective Dates [...]
--- OUTSIDE RECORDS SUMMARY | 2022-04-30 23:00 | XMS_ITS | Continuity of Care Document ---
:1970 Author Organization [facility] Address [address] [place] [id number]- Care Team Providers Name Role Phone Genevieve MORA, Danica Primary Care Physician Encounter [facility] Date(s): 03/25/22 - 03/28/[address] [address] Discharge Disposition: A-D/C Home Attending Physician: Doug Cordon MD Admitting Physician: Bella Darby MD Referring Physician: Not on Staff, Referring [...] 1 each, 2 Refills,Maintenance, 03/14/22 9:19:00 EDT, [facility]/pharmacy #[id number], 2 puffs Inhalation 2 times a day,Instr:Disregard previous script sent to pharmacy, 160.02, cm,... Start Date: 03/14/22 Status: Orderedalbuterol 0.083% inhalation solution 1 vials, Inhalation, Every 6 hours, PRN NEEDED FOR WHEEZING, for 7 days, Needs to be seen before getting any more refills, # 10 each, 0 Refills, Physician Stop 03/31/22 10:54:00 EDT, 03/24/22 10:54:00 EDT, [id number], 160.02, cm, 02/07/22 1... Start Date: 03/24/22 Stop Date: 03/31/22 Status: OrderedAlcohol Wipes See Instructions, # 1 box, Refills 6, Tot. Refills 6, Maintenance, Type 2 Diabetes Mellitus ICD 10 E11.9. Test 3 times daily., 01/04/19 9:49:06 EDT, Compound Start Date: 01/04/19 Status: OrderedamLODIPine 10 mg oral tablet 10 mg, 1, tablet, By Mouth, Daily, # 30 tablet, Refills 2, Tot. Refills 2, Maintenance, 02/11/22 17:35:00 EDT, Route to Pharmacy Electronically, [facility]/pharmacy #[id number], Partial fill upon patient request ifthe prescription is for a schedule II opioid drug... Start Date: 02/11/22 Status: OrderedAspirin Enteric Coated 81 mg oral delayed release tablet 1 tablet = 81 mg, By Mouth, Daily, # 30 tablet, 5 Refills, Maintenance, 02/11/22 17:36:00 EDT, [facility]/pharmacy #[id number], 160.02, cm, 02/07/22 10:35:00 EDT, Height Start Date: 02/11/22 Stop Date: 08/10/22 Status: Orderedatorvastatin 80 mg oral tablet 1 tablet = 80 mg, By Mouth, Daily at bedtime, # 30 tablet, 0 Refills, Maintenance, 03/28/22 14:31:00EDT, Tablet, [facility]/pharmacy #[id number], Partial fill upon patient request if [...] 02/11/22 17:35:00 EDT, Route to Pharmacy Electronically, [facility]/pharmacy #[id number], 160.02, cm, 02/07/22 10:35:00 EDT, Height Start Date: 02/11/22 Status: Orderedglipizide-metformin 5 mg-500 mg oral tablet 2 tablet, By Mouth, 2 times a day, DIABETES, # 120 tablet, 2 Refills, Maintenance, 02/11/22 17:35:00EDT, Tablet, [facility]/pharmacy #[id number], 2 tablet By Mouth 2 times [...] 2 Refills, Maintenance, 02/11/22 17:35:00 EDT, Powder, [facility], 160.02, cm, 02/07/22 10:35:00 EDT, Height Start Date: 02/11/22 Status: OrderedFlower Solostar Pen 100 units/mL subcutaneous solution = 20 units, Subcutaneous Injection, Daily at bedtime, Dose increase, # 15 mL, 1 Refills, Maintenance, 02/11/22 17:36:00 EDT, Solution, [id number], Partial fill upon patient request if the prescription is for a schedule II opioid drug., 160.02,... Start Date: 02/11/22 Status: OrderedLasix 40 mg oral tablet 40 mg, 1, tablet, By Mouth, Daily, # 30 tablet, Refills 0, Tot. Refills 0, Maintenance, 03/28/22 14:06:00 EDT, Route to Pharmacy Electronically, [facility]/pharmacy #[id number], Partial fill upon patient request ifthe [...] 03/28/22 14:06:00 EDT, Route to [facility]ically, [id number], Partial fill upon patient requestif the prescription is for a schedule II opioid d... Start Date: 03/28/22 Status: Orderedmontelukast 10 mg oral tablet 1, tablet, By Mouth, Daily in PM, Disregard previous script, # 30 tablet, Refills 1, Tot. Refills 1,01/31/22 10:36:00 EDT, Route to Pharmacy Electronically, [facility], 160.02, cm, 12/28/21 11:08:00 EDT, Height Start Date: 01/31/22 Status: OrderedNebulizer mask and tubing Nebulizer mask and tubing, See Instructions, # 1 each, Refills 0, Tot. Refills 0, Maintenance, Dx: Asthma J44.9. To be used with albuterol, 12/17/19 10:33:00 EDT, Compound Start Date: 12/17/19 Status: OrderedPen [place], 31 G x 5 mm BD Ultra [...] 03/28/22 14:05:00 EDT, Route to Pharmacy Electronically, [facility]/pharmacy #[id number], Partial fill upon patient request ifthe prescription is for a schedule II opioid drug... Start Date: 03/28/22 Status: OrderedProAir HFA 90 mcg/inh inhalation aerosol with adapter 2, puffs, Inhalation, Every 4 hours, PRN, for 90 days, # 3 each, Refills 0, Tot. Refills 0, Physician Stop 05/02/22 16:36:00 EST, 02/01/22 16:36:00 EDT, Route to Pharmacy Electronically, [id number], [facility]/pharmacy #[id number], 160.02... Start Date: 02/01/22 Stop Date: 05/02/22 Status: OrderedToprol XL 25 mg oral tablet, extended release 25 mg, 1, tablet, By Mouth, Daily, # 30 tablet, Refills 0, Tot. Refills 0, Maintenance, 03/28/22 14:07:00 EDT, Route to Pharmacy Electronically, [facility]/pharmacy #[id number], Partial fill upon patient request ifthe prescription is for a schedule II opioid drug... Start Date: 03/28/22 Stop Date: 04/27/22 Status: Ordered Problem List Condition Confirmation Course Effective Dates Status Health Stat us Informant COPD with asthma Confirmed Active Type 2 Diabetes Confirmed Active Mellitus with peripheral neuropathy Family history of Confirmed Active early CAD Hypertension Confirmed Active Severe obesity Confirmed Active Tobacco use Confirmed Active Results Orders for Microbiology Reports Name Date Blood Culture 03/25/22 Blood Culture #2 03/25/22 Microbiology Reports TEST:Blood Culture STATUS:Unauthenticated BODY SITE: SOURCE:Blood COLLECTED DATE/TIME:03/25/22 9:24 PMBlood Culture SPECIMEN DESCRIPTION : BLOOD L HAND SPECIAL REQUESTS : NONE CULTURE : NO GROWTH AFTER 48 HOURS REPORT STATUS : PRELIMINARY REPORT TEST:Blood Culture, Second Order STATUS:Unauthenticated BODY SITE: SOURCE:Blood COLLECTED DATE/TIME:03/25/22 9:24 PMBlood Culture, Second Order SPECIMEN DESCRIPTION : BLOOD R AC SPECIAL REQUESTS : NONE CULTURE : NO GROWTH AFTER 48 HOURS REPORT STATUS : PRELIMINARY REPORT Radiology Reports Exam Date Time Procedure Performing Provider Status 03/25/22 9:11 PM Chest Portable Anjum Odonnell; Auth (Verified) Notes:(Chest Portable) Reason For Exam: Chest Pain;Other:RESULT: Chest Portable Chest Portable REASON: Chest Pain; Clinical Question(s): CHF Hx of Present Illness: Pt biba from home w c o BLE weeping and ?cellulitis. States legs swollen and oozing. Per EMS R leg seems more swollen but both appear reddened swollen. Pt en route also endorses chronic SOB CP back pain Chest tightness. EMS 324 ASA given. COMPARISON: Multiple priors, most recent chest x-ray 12/25/2018. CT chest 05/03/2019. FINDINGS: LINES AND TUBES: None. LUNGS AND PLEURA: Clear lungs. Normal pulmonary vascularity. No pleural effusion. No pneumothorax. HEART, MEDIASTINUM AND TIMOTHY: Heart is normal in size. Normal mediastinal and hilar contour. BONES AND SOFT TISSUES: No acute abnormality. IMPRESSION: No acute abnormality. I have personally reviewed the images and I agree with this report. WSN: [id number] Ordering Physician: Evelyn Hayes Dictated By: Gutsabo Vincent DO Dictated Date/Time: 03/25/22 9:26 pm Reviewed By: Dave Perez MD Signed By: Dave Perez MD Signed Date/Time: 03/25/22 9:31 pm Transcribed By: MINERVA Transcribed Date/Time: 03/25/22 9:19 pm Vital Signs Most recent to oldest 1 2 3 [Reference Range]: Height 63 cm 63 cm 63 cm (03/28/22 11:00 AM) (03/28/22 7:16 AM) (03/28/22 1:50 AM) Weight 77.0 kg 77.0 kg 83.3 kg (03/28/22 1:50 AM) (03/27/22 9:24 PM) (03/27/22 1:00 AM) Oxygen Saturation [94-100 94 % 96 % 91 % %] (03/28/22 11:00 AM) (03/28/22 8:00 AM) *L* (03/28/22 7:16 A M) Pulse Rate [55-90 bpm] 92 bpm 89 bpm 92 bpm *H* (03/28/22 7:16 AM) *H* (03/28/22 11:00 AM) (03/28/22 1: 50 AM) Body Mass Index [18.5-24.99 194 kg/m2 28.91 kg/m2 kg/m2] *>HHI* *H* (03/28/22 1:50 AM) (03/26/22 1:10 PM) Blood Pressure 128/67 mm Hg 134/62 mm Hg 125/58 mm Hg [90-138/55-84 mm Hg] (03/28/22 11:00 AM) (03/28/22 7:16 AM) ( 1:50 AM) Respiratory Rate [16-30 18 br/min 18 br/min 18 br/mi n br/min] (03/28/22 11:00 AM) (03/28/22 7:16 AM) (03/28/22 1:50 AM) Temperature [96.8-100.4 98.4 DegF 98.7 DegF 98.3 Deg F DegF] (03/28/22 11:00 AM) (03/28/22 7:16 AM) (03/28/22 1:50 AM) Liters per Minute 2 L/min 2 L/min 2 L/min (03/28/22 7:16 AM) (03/27/22 2:00 PM) (03/27/22 8:00 AM) Mode of Delivery (Oxygen) Room air Room air Nasal cannula (03/28/22 11:00 AM) (03/28/22 8:00 AM) (03/28/22 7:16 AM) Blood pressure sites Arm, left Arm, right Arm, right (03/28/22 11:00 AM) (03/28/22 7:16 AM) (03/28/22 1:50 AM) Temperature Route Oral Oral Oral (03/28/22 11:00 AM) (03/28/22 7:16 AM) (03/28/22 1:50 AM) Dry Weight 74 kg (03/26/22 1:10 PM) Weight Obtained Via Bed scale Bed scale Bed scale (03/28/22 1:50 AM) (03/27/22 9:24 PM) (03/27/22 1:00 AM) Social History Social History Type Response Smoking Status Current every day smoker; To bacco user in household: Yes; Type: Cigarettes; Other: more than 5 a day; entered on: 12/28/16 Sex Portable XR Chest Views BHSPowerscribe , CIS S: TRANSCRIBE Dave Perez MD: VERIFY Gustabo Vincent DO: SIGN Event Display: Result: Authored Date: [id number] Chest Portable REASON: Chest Pain; Clinical Question(s): CHF Hx of Present Illness: Pt biba from home w c o BLE weeping and ?cellulitis. States legs swollen and oozing. Per EMS R leg seems more swollen but both appear reddened swollen. Pt en route also endorses chronic SOB CP back pain Chest tightness. EMS 324 ASA given. COMPARISON: Multiple priors, most recent chest x-ray 12/25/2018. CT chest 05/03/2019. FINDINGS: LINES AND TUBES: None. LUNGS AND PLEURA: Clear lungs. Normal pulmonary vascularity. No pleural effusion. No pneumothorax. HEART, MEDIASTINUM AND TIMOTHY: Heart is normal in size. Normal mediastinal and hilar contour. BONES AND SOFT TISSUES: No acute abnormality. IMPRESSION: No acute abnormality. I have personally reviewed the images and I agree with this report. WSN: [id number] Ordering Physician: Evelyn Hayes Dictated By: Gustabo Vincent DO Dictated Date/Time: 03/25/22 9:26 pm Reviewed By: Dave Perez MD Signed By: Dave Perez MD Signed Date/Time: 03/25/22 9:31 pm Transcribed By: MINERVA Transcribed Date/Time: 03/25/22 9:19 pm Patient Care team information PersonnelName: Danica Vallejo NP Address: Address: [address] [place] [id number]
--- OUTSIDE RECORDS SUMMARY | 2022-04-30 23:00 | XMS_ITS | Continuity of Care Document ---
:1970 Author Organization [facility] Address [address] [place] [address]- Care Team Providers Name Role Phone Genevieve MORA, Danica Primary Care Physician Encounter [facility] Date(s): 12/03/21 - 02/02/22 [facility] [address] [place], [place] [address] Attending Physician: Danica Vallejo NP Allergies, Adverse Reactions, Alerts Substance Reaction Severity Status amoxicillin Active penicillin Hives Active Immunizations Given and Recorded Vaccine Date Status Refusal Reason influenza virus vaccine, inactivated 03/16/21 Recorded SARS-CoV-2 (COVID-19) mRNA-1273 vaccine 11/08/20 Recorded SARS-CoV-2 (COVID-19) mRNA-1273 vaccine 10/11/20 Recorded Medications Advair HFA 115 mcg / 21 mcg 2 puffs, Inhalation, 2 times a day, Disregard previous script, # 12 Gm, 0 Refills, 12/24/21 12:17:00EDT, [id number], 2 puffs Inhalation 2 times a day,Instr:Disregard previous script, 160.02, cm, 09/21/21 11:48:00 EDT, Height Start Date: 12/24/21 Status: Orderedalbuterol 0.083% inhalation solution 1 vials, [...] 08/30/21 7:52:00 EDT, [id number] Partial fill upon patient request if the prescription is for a schedule II opioid drug.... Start Date: 08/30/21 Status: OrderedAspirin Enteric Coated 81 mg oral delayed release tablet 1 tablet = 81 mg, By Mouth, Daily, # 30 tablet, 5 Refills, Maintenance, 08/30/21 7:52:00 EDT, [facility]/pharmacy #[id number], 160.02, cm, 08/26/21 10:47:00 EDT, Height Start Date: 08/30/21 Stop Date: 02/26/22 Status: Orderedatorvastatin 10 mg oral tablet 1 tablet = 10 mg, By Mouth, Daily, Cholesterol medication, # 30 tablet, 2 Refills, Maintenance, 08/30/21 7:52:00 EDT, [facility]/pharmacy #[id number], 160.02, cm, 08/26/21 10:47:00 EDT, Height Start Date: 08/30/21 Status: OrderedFreestyle Lite Monitor See Instructions, # [...] Daily at bedtime, # 60 capsule, Refills 0, Tot. Refills 0, 01/27/22 17:47:00 EDT, Route to Pharmacy Electronically, [facility]/pharmacy #207, 160.02, cm, 12/28/21 11:08:00 EDT, Height Start Date: 01/27/22 Status: Orderedglipizide-metformin 5 mg-500 mg oral tablet 2 tablet, By Mouth, 2 times a day, DIABETES, # 60 tablet, 2 Refills, Maintenance, 08/30/21 7:52:00 EDT, Tablet, [facility]/pharmacy #207, 2 tablet By Mouth 2 times [...] tablet, 2 Refills, Maintenance, 08/30/21 7:52:00 EDT, [facility]/pharmacy #207, please cancel lisinopril, 1 tablet By Mouth Daily,Instr:NEW BLOOD PRESSURE MEDICATION, 160.02, cm, 08/26/21 10:47:... Start Date: 08/30/21 Status: Orderedincentive Spirometer incentive Spirometer, See Instructions, [...] 2 Refills, Maintenance, 08/30/21 7:52:00 EDT, Powder, [facility]/pharmacy #207, 160.02, cm, 08/26/21 10:47:00 EDT, Height Start Date: 08/30/21 Status: OrderedLantus Solostar Pen 100 units/mL subcutaneous solution = 10 units, Subcutaneous Injection, Daily at bedtime, # 15 mL, 1 Refills, Maintenance, 09/20/21 8:37:00 EDT, Solution, [facility]/pharmacy #[id number], Partial fill upon patient request if the prescription is for aschedule II opioid drug., 160.02, cm, 09/17/21 8:... Start Date: 09/20/21 Status: Orderedmontelukast 10 mg oral tablet 1, tablet, By Mouth, Daily in PM, Disregard previous script, # 30 tablet, Refills 1, Tot. Refills 1,01/31/22 10:36:00 EDT, Route to Pharmacy Electronically, [facility]/pharmacy #[id number], 160.02, cm, 12/28/21 11:08:00 EDT, Height Start Date: 01/31/22 Status: OrderedNebulizer mask and tubing Nebulizer mask and tubing, See Instructions, # 1 each, Refills 0, Tot. Refills 0, Maintenance, Dx: Asthma J44.9. To be used with albuterol, 12/17/19 10:33:00 EDT, Compound Start Date: 12/17/19 Status: OrderedPen [place], 31 G x 5 mm BD Ultra [...] 02/01/22 16:36:00 EDT, Route to Pharmacy Electronically, [id number], [facility]/pharmacy #[id number], 160.02... Start Date: 02/01/22 Stop Date: 05/02/22 Status: Ordered Problem List Condition Effective Dates [...]
--- OUTSIDE RECORDS SUMMARY | 2022-04-30 23:00 | XMS_ITS | Continuity of Care Document ---
:1970 Author Organization [facility] Address [address] [place] [address]- Care Team Providers Name Role Phone Medina Moss MD Primary Care Physician Encounter [facility] [place] Date(s): 03/24/20 - 06/04/20 [facility] [address] [place], [place] [address] Attending Physician: Mednia Moss MD Allergies, Adverse Reactions, Alerts Substance Reaction [...] tablet, 5 Refills, Maintenance, 03/24/20 14:24:00 EDT, [facility]/pharmacy #[id number], 160.02, cm, 11/22/19 13:52:00 EDT, Height, 74, kg, 01/04/19 9:01:00 EDT, Dry Weight Start Date: 03/24/20 Stop Date: 09/20/20 Status: Orderedatorvastatin 10 mg oral tablet 1 tablet = 10 mg, By Mouth, Daily, Cholesterol medication, # 30 tablet, 5 Refills, Maintenance, 03/24/20 14:24:00 EDT, [facility]/pharmacy #[id number], 160.02, cm, 11/22/19 13:52:00 EDT, Height, 74, kg, 01/04/19 9:01:00 EDT, Dry Weight Start Date: 03/24/20 Status: OrderedBydureon Pen 2 mg subcutaneous injection, extended release See Instructions, INJECT 2 MG BY SUBCUTANEOUS INFUSION EVERY 7 DAYS, # 4 Unknown, 5 Refills, 03/24/20 14:24:00 EDT, [facility]/pharmacy #[id number], 160.02, cm, 11/22/19 13:52:00 EDT, Height, 74, kg, 01/04/19 9:01:00 EDT, Dry Weight Start Date: 03/24/20 Status: Orderedcyclobenzaprine 5 mg oral tablet 1 tablet = 5 mg, By Mouth, 3 times a day, PRN Spasm, # 40 tablet, 3 Refills, Maintenance, 03/24/20 14:26:00 EDT, Tablet, [facility]/pharmacy #[id number], 160.02, cm, 11/22/19 13:52:00 EDT, [...] 03/24/20 14:25:00 EDT, Route to Pharmacy Electronically, [facility]/pharmacy #207, 160.02, cm, 11/22/19 13:52:00 EDT, Height, 74, kg, 01/04/19 9:01:00 EDT,... Start Date: 03/24/20 Status: Orderedglipizide-metformin 5 mg-500 mg oral tablet 2 tablet, By Mouth, 2 times a day, DIABETES, # 60 tablet, 5 Refills, Maintenance, 03/24/20 14:25:00 EDT, Tablet, [facility]/pharmacy #[id number], 2 tablet By Mouth 2 [...] tablet, 2 Refills, Maintenance, 03/24/20 14:22:00 EDT, [facility]/pharmacy #[id number], please cancel lisinopril, 1 tablet By Mouth Daily,Instr:NEW BLOOD PRESSURE MEDICATION, 160.02, cm, 11/22/19 13:52... Start Date: 03/24/20 Status: OrderedIncruse Ellipta 62.5 mcg/inh inhalation powder 1 each, Inhalation, Every 24 hours, doses should be taken at least 24 hours apart, # 30 each, 5 Refills, Maintenance, 03/24/20 14:20:00 EDT, Powder, [facility]/pharmacy #207, 160.02, cm, 11/22/19 13:52:00 EDT, [...] Replace Required Details, Route to Pharmacy Electronically, [id number]... Start Date: 03/24/20 Status: OrderedSingulair 10 mg oral tablet 10 mg, 1, tablet, By Mouth, Daily in PM, ASTHMA, # 30 tablet, Refills 11, Tot. Refills 11, Maintenance, 03/24/20 14:19:00 EDT, Route to Pharmacy Electronically, [facility]/pharmacy #[id number], 160.02, cm, 11/21/2012:52:00 EDT, Height, [...]
--- OUTSIDE RECORDS SUMMARY | 2022-04-30 23:00 | XMS_ITS | Continuity of Care Document ---
:1970 Author Organization [facility] Address [address] [place] [address]- Care Team Providers Name Role Phone Genevieve MORA, Danica Primary Care Physician Encounter [facility] [place] Date(s): 10/27/21 - 11/26/21 [facility] [address] [place], [place] [address] Attending Physician: Admpaul, Mitul Admitting Physician: Admtr, Ar8 Referring Physician: Admtr, Ar8 Allergies, Adverse Reactions, [...] 08/30/21 7:52:00 EDT, Route to Pharmacy Electronically, [facility]/pharmacy #[id number], Partial fill upon patient request if the prescription is for a schedule II opioid drug.... Start Date: 08/30/21 Status: OrderedAspirin Enteric Coated 81 mg oral delayed release tablet 1 tablet = 81 mg, By Mouth, Daily, # 30 tablet, 5 Refills, Maintenance, 08/30/21 7:52:00 EDT, [facility]/pharmacy #207, 160.02, cm, 08/26/21 10:47:00 EDT, Height Start Date: 08/30/21 Stop Date: 02/26/22 Status: Orderedatorvastatin 10 mg oral tablet 1 tablet = 10 mg, By Mouth, Daily, Cholesterol medication, # 30 tablet, 2 Refills, Maintenance, 08/30/21 7:52:00 EDT, [facility]/pharmacy #207, 160.02, cm, 08/26/21 10:47:00 EDT, [...] 07/30/21 11:08:00 EST, Route to Pharmacy Electronically, [facility]/pharmacy #207, 160.02, cm, 11/22/19 13:52:00 EDT, Height Start Date: 07/30/21 Status: Orderedglipizide-metformin 5 mg-500 mg oral tablet 2 tablet, By Mouth, 2 times a day, DIABETES, # 60 tablet, 2 Refills, Maintenance, 08/30/21 7:52:00 EDT, Tablet, [id number], 2 tablet By Mouth 2 times [...] tablet, 2 Refills, Maintenance, 08/30/21 7:52:00 EDT, [facility], please cancel lisinopril, 1 tablet By Mouth Daily,Instr:NEW BLOOD PRESSURE MEDICATION, 160.02, cm, 08/26/21 10:47:... Start Date: 08/30/21 Status: OrderedIncruse Ellipta 62.5 mcg/inh inhalation powder 1 each, Inhalation, Every 24 hours, doses should be taken at least 24 hours apart, # 30 each, 2 Refills, Maintenance, 08/30/21 7:52:00 EDT, Powder, [id number], 160.02, cm, 08/26/21 10:47:00 EDT, Height Start Date: 08/30/21 Status: OrderedLantus Solostar Pen 100 units/mL subcutaneous solution = 10 units, Subcutaneous Injection, Daily at bedtime, # 15 mL, 1 Refills, Maintenance, 09/20/21 8:37:00 EDT, Solution, [id number], Partial fill upon patient request if the prescription is for aschedule II opioid drug., 160.02, cm, 09/17/21 8:... Start Date: 09/20/21 Status: OrderedNebulizer mask and tubing Nebulizer mask and tubing, See Instructions, # 1 each, Refills 0, Tot. Refills 0, Maintenance, Dx: Asthma J44.9. To be used with albuterol, 12/17/19 10:33:00 EDT, Compound Start Date: 12/17/19 Status: OrderedPen [place], 31 G x 5 mm BD Ultra [...] 08/30/21 7:52:00 EDT, Route to Pharmacy Electronically, [facility]/pharmacy #[id number], 160.02, cm, 08/26/21 10:47:00 EDT, [...]
--- OUTSIDE RECORDS SUMMARY | 2022-04-30 23:00 | XMS_ITS | Continuity of Care Document ---
:1970 Author Organization [facility] Address [address] [place] [address]- Care Team Providers Name Role Phone Genevieve MORA, Danica Primary Care Physician Encounter [facility] [place] Date(s): 04/01/22 - 04/08/22 [facility] [address] [place] [place] [address] Encounter Diagnosis NSTEMI (non-ST elevated myocardial infarction) (Discharge Diagnosis) - 04/01/22 COPD with asthma (Discharge Diagnosis) - 04/01/22 Hypertension (Discharge Diagnosis) - 04/01/22 Type 2 Diabetes Mellitus with peripheral neuropathy (Discharge Diagnosis) - 04/01/22 CHF (congestive heart failure) (Discharge Diagnosis) - 04/01/22 Wound of left foot (Discharge Diagnosis) - 04/01/22 Falls (Discharge Diagnosis) - 04/01/22 Attending Physician: Danica Vallejo NP Allergies, Adverse [...] 1 each, 2 Refills,Maintenance, 03/14/22 9:19:00 EDT, [id number], 2 puffs Inhalation 2 times [...] EDT, Route to Pharmacy Electronically, [facility]/pharmacy #[id number], Partial fill upon patient request ifthe prescription is for a schedule II opioid drug... Start Date: 02/11/22 Status: OrderedAspirin Enteric Coated 81 mg oral delayed release tablet 1 tablet = 81 mg, By Mouth, Daily, # 30 tablet, 5 Refills, Maintenance, 02/11/22 17:36:00 EDT, [facility]/pharmacy #[id number], 160.02, cm, 02/07/22 10:35:00 EDT, Height Start Date: 02/11/22 Stop Date: 08/10/22 Status: Orderedatorvastatin 80 mg oral tablet 1 tablet = 80 mg, By Mouth, Daily at bedtime, # 30 tablet, 0 Refills, Maintenance, 03/28/22 14:31:00EDT, Tablet, [facility]/pharmacy #[id number], Partial fill upon patient request if [...] EDT, Route to Pharmacy Electronically, [facility]/pharmacy #[id number], 160.02, cm, 02/07/22 10:35:00 EDT, Height Start Date: 02/11/22 Status: Orderedglipizide-metformin 5 mg-500 mg oral tablet 2 tablet, By Mouth, 2 times a day, DIABETES, # 120 tablet, 2 Refills, Maintenance, 02/11/22 17:35:00EDT, Tablet, [facility]/pharmacy #[id number], 2 tablet By Mouth 2 times [...] Maintenance, 02/11/22 17:35:00 EDT, Powder, [facility]/pharmacy #207, 160.02, cm, 02/07/22 10:35:00 EDT, Height Start Date: 02/11/22 Status: OrderedLantus Solostar Pen 100 units/mL subcutaneous solution = 20 units, Subcutaneous Injection, Daily at bedtime, Dose increase, # 15 mL, 1 Refills, Maintenance, 02/11/22 17:36:00 EDT, Solution, [facility]/pharmacy #[id number], Partial fill upon patient request if the prescription is for a schedule II opioid drug., 160.02,... Start Date: 02/11/22 Status: OrderedLasix 40 mg oral tablet 40 mg, 1, tablet, By Mouth, Daily, # 30 tablet, Refills 0, Tot. Refills 0, Maintenance, 03/28/22 14:06:00 EDT, Route to Pharmacy Electronically, [facility]/pharmacy #[id number], Partial fill upon patient request ifthe [...] 03/28/22 14:06:00 EDT, Route to Pharmacy Electronically, [facility]/pharmacy #[id number], Partial fill upon patient requestif the prescription is for a schedule II opioid d... Start Date: 03/28/22 Status: Orderedmontelukast 10 mg oral tablet 1, tablet, By Mouth, Daily in PM, Disregard previous script, # 30 tablet, Refills 1, Tot. Refills 1,01/31/22 10:36:00 EDT, Route to Pharmacy Electronically, [id number], 160.02, cm, 12/28/21 11:08:00 EDT, Height Start Date: 01/31/22 Status: OrderedNebulizer mask and tubing Nebulizer mask and tubing, See Instructions, # 1 each, Refills 0, Tot. Refills 0, Maintenance, Dx: Asthma J44.9. To be used with albuterol, 12/17/19 10:33:00 EDT, Compound Start Date: 12/17/19 Status: OrderedPen [place], 31 G x 5 mm BD Ultra [...] 03/28/22 14:05:00 EDT, Route to Pharmacy Electronically, [facility]/pharmacy #[id number], Partial fill upon patient request ifthe prescription is for a schedule II opioid drug... Start Date: 03/28/22 Status: OrderedProAir HFA 90 mcg/inh inhalation aerosol with adapter 2, puffs, Inhalation, Every 4 hours, PRN, for 90 days, # 3 each, Refills 0, Tot. Refills 0, Physician Stop 05/02/22 16:36:00 EST, 02/01/22 16:36:00 EDT, Route to Pharmacy Electronically, [id number], [facility]/pharmacy #[id number], 160.02... Start Date: 02/01/22 Stop Date: 05/02/22 Status: OrderedToprol XL 25 mg oral tablet, extended release 25 mg, 1, tablet, By Mouth, Daily, # 30 tablet, Refills 0, Tot. Refills 0, Maintenance, 03/28/22 14:07:00 EDT, Route to Pharmacy Electronically, [facility]/pharmacy #[id number], Partial fill upon patient request ifthe [...] elevated myocardial infarction) Tobacco use Confirmed Active Diagnosis Diagnosis Type Effective Dates Health Clinical Infor mant Status Service COPD with asthma Discharge 04/01/22 Diagnosis Hypertension Discharge 04/01/22 Diagnosis Type 2 Diabetes Discharge 04/01/22 Mellitus with Diagnosis peripheral neuropathy CHF (congestive Discharge 04/01/22 heart failure) Diagnosis NSTEMI (non-ST Discharge 04/01/22 elevated myocardial Diagnosis infarction) Wound of left foot Discharge 04/01/22 Diagnosis Falls Discharge 04/01/22 Diagnosis Vital Signs Most recent to oldest [Reference Range]: 1 Height 160.02 cm (04/01/22 11:01 AM) Weight 74.9 kg (04/01/22 11:01 AM) Oxygen Saturation [94-100 %] 100 % (04/01/22 11:01 AM) Pulse Rate [55-90 bpm] 98 bpm *H* (04/01/22 11:01 AM) Body Mass Index [18.5-24.99 kg/m2] 29.25 kg/m2 *H* (04/01/22 11:01 AM) Blood Pressure [90-138/55-84 mm Hg] 129/73 mm Hg (04/01/22 11:01 AM) Mode of Delivery (Oxygen) Room air (04/01/22 11:01 AM) Blood pressure sites Arm, left (04/01/22 11:01 AM) Weight Obtained Via Standing scale (04/01/22 11:01 AM) Social History Social History Type Response Smoking Status Current every day smoker; To bacco user in household: Yes; Type: Cigarettes; Other: more than 5 a day; entered on: 12/28/16 Sex Patient Care team information PersonnelName: Danica Vallejo NP Address: Address: [address] [place] [address]
--- OUTSIDE RECORDS SUMMARY | 2022-04-30 23:00 | XMS_ITS | Continuity of Care Document ---
:1970 Author Organization [facility] Address [address] [place] [address]- Care Team Providers Name Role Phone Genevieve MORA, Danica Primary Care Physician [place] [facility] [place] 12/20/21 - 01/19/22 [facility] [address] [place], [place] [address] Allergies, Adverse Reactions, Alerts Substance Reaction [...] Every 6 hours, PRN NEEDED FOR WHEEZING, Disregard previous script, # 75 mL, 0 Refills, 12/24/21 12:16:00 EDT, [id number], 160.02, cm, 09/21/21 11:48:00 EDT, Height Start Date: 12/24/21 Status: OrderedAlcohol Wipes See Instructions, # 1 box, Refills 6, Tot. Refills 6, Maintenance, Type 2 Diabetes Mellitus ICD 10 E11.9. Test 3 times daily., 01/04/19 9:49:06 EDT, Compound Start Date: 01/04/19 Status: OrderedamLODIPine 10 mg oral tablet 10 mg, 1, tablet, By Mouth, Daily, # 30 tablet, Refills 2, Tot. Refills 2, Maintenance, 08/30/21 7:52:00 EDT, [id number] Partial fill upon patient request if the prescription is for a schedule II opioid drug.... Start Date: 08/30/21 Status: OrderedAspirin Enteric Coated 81 mg oral delayed release tablet 1 tablet = 81 mg, By Mouth, Daily, # 30 tablet, 5 Refills, Maintenance, 08/30/21 7:52:00 EDT, [id number] 160.[facility], cm, 08/26/21 10:47:00 EDT, Height [...] Daily at bedtime, # 60 capsule, Refills 1, Tot. Refills 1, 12/03/21 16:03:00 EDT, Route to Pharmacy Electronically, [facility]/pharmacy #[id number], 160.02, cm, 09/21/21 11:48:00 EDT, Height Start Date: 12/03/21 Status: Orderedglipizide-metformin 5 mg-500 mg oral tablet 2 tablet, By Mouth, 2 times a day, DIABETES, # 60 tablet, 2 Refills, Maintenance, 08/30/21 7:52:00 EDT, Tablet, [facility]/pharmacy #207, 2 tablet By Mouth 2 times [...] 08/30/21 7:52:00 EDT, Powder, [facility]/pharmacy #[id number], 160.02, cm, 08/26/21 [...] # 30 tablet, Refills 1, Tot. Refills 1,01/03/22 10:14:00 EDT, Route to Pharmacy Electronically, [facility]/pharmacy #[id number], 160.02, cm, 12/28/21 11:08:00 EDT, Height Start Date: 01/03/22 Status: OrderedNebulizer mask and tubing Nebulizer mask and tubing, See Instructions, # 1 each, Refills 0, Tot. Refills 0, Maintenance, Dx: Asthma J44.9. To be used with albuterol, 12/17/19 10:33:00 EDT, Compound Start Date: 12/17/19 Status: OrderedPen [place], 31 G x 5 mm BD Ultra Fine III See Instructions, # 100 each, Maintenance, Use daily with Lantus solostar pen Dx: Type 2 DM ICD 10: E11.9, 09/20/21 8:38:00 EDT, Supply, 160.02, cm, 09/17/21 8:57:00 EDT, Height Start Date: 09/20/21 Status: Ordered Problem List Condition Effective Dates [...]
--- OUTSIDE RECORDS SUMMARY | 2022-04-30 23:00 | XMS_ITS | Continuity of Care Document ---
:1970 Author Organization [facility] Address [address] [place] [address]- Care Team Providers Name Role Phone Genevieve MORA, Danica Primary Care Physician [id number] Date(s): 02/07/22 - 02/14/22 [facility] [address] [place], [place] [address] Encounter Diagnosis Type 2 Diabetes Mellitus with peripheral neuropathy (Discharge Diagnosis) - 02/07/22 COPD with asthma (Discharge Diagnosis) - 02/07/22 Hypertension (Discharge Diagnosis) - 02/07/22 Tobacco use (Discharge Diagnosis) - 02/07/22 Wound of left foot (Discharge Diagnosis) - 02/07/22 Attending Physician: Danica Vallejo NP Allergies, Adverse [...] each, 0 Refills, 01/27/22 17:46:00 EDT, [facility], 160.02, cm, 12/28/21 11:08:00 EDT, [...] 02/11/22 17:35:00 EDT, [id number] Partial fill upon patient request ifthe prescription is for a schedule II opioid drug... Start Date: 02/11/22 Status: OrderedAspirin Enteric Coated 81 mg oral delayed release tablet 1 tablet = 81 mg, By Mouth, Daily, # 30 tablet, 5 Refills, Maintenance, 02/11/22 17:36:00 EDT, [facility]/pharmacy #207, 160.02, cm, 02/07/22 10:35:00 EDT, Height Start Date: 02/11/22 Stop Date: 08/10/22 Status: Orderedatorvastatin 10 mg oral tablet 1 tablet = 10 mg, By Mouth, Daily, Cholesterol medication, # 30 tablet, 2 Refills, Maintenance, 02/11/22 17:35:00 EDT, [facility]/pharmacy #207, 160.02, cm, 02/07/22 10:35:00 EDT, Height Start Date: 02/11/22 Status: OrderedFreestyle Lite Monitor See Instructions, # [...] 02/11/22 17:35:00 EDT, Route to Pharmacy Electronically, [facility]/pharmacy #207, 160.02, cm, 02/07/22 10:35:00 EDT, Height Start Date: 02/11/22 Status: Orderedglipizide-metformin 5 mg-500 mg oral tablet 2 tablet, By Mouth, 2 times a day, DIABETES, # 120 tablet, 2 Refills, Maintenance, 02/11/22 17:35:00EDT, Tablet, [facility]/pharmacy #207, 2 tablet By Mouth 2 times [...] tablet, 2 Refills, Maintenance, 02/11/22 17:35:00 EDT, [facility]/pharmacy #207, please cancel lisinopril, 1 tablet [...] 2 Refills, Maintenance, 02/11/22 17:35:00 EDT, Powder, [facility]/pharmacy #[id number], 160.02, cm, 02/07/22 10:35:00 EDT, Height Start Date: 02/11/22 Status: OrderedLantus Solostar Pen 100 units/mL subcutaneous solution = 20 units, Subcutaneous Injection, Daily at bedtime, Dose increase, # 15 mL, 1 Refills, Maintenance, 02/11/22 17:36:00 EDT, Solution, [facility]/pharmacy #[id number], Partial fill upon patient request [...] 1,01/31/22 10:36:00 EDT, Route to Pharmacy Electronically, [facility]/pharmacy #[id number], 160.02, cm, 12/28/21 11:08:00 EDT, Height Start Date: 01/31/22 Status: OrderedNebulizer mask and tubing Nebulizer mask and tubing, See Instructions, # 1 each, Refills 0, Tot. Refills 0, Maintenance, Dx: Asthma J44.9. To be used with albuterol, 12/17/19 10:33:00 EDT, Compound Start Date: 12/17/19 Status: Orderednitrofurantoin macrocrystals 100 mg oral capsule 1 capsule = 100 mg, By Mouth, 2 times a day, for 7 days, # 14 capsule, 0 Refills, Acute 02/18/22 17:37:00 EDT, 02/11/22 17:37:00 EDT, Capsule, [id number], Partial fill upon patient request if the prescription is for a schedule II opioid drug.,... Start Date: 02/11/22 Stop Date: 02/18/22 Status: OrderedPen [place], 31 G x 5 mm BD Ultra [...] 02/01/22 16:36:00 EDT, Route to Pharmacy Electronically, [id number], [id number], 160.02... Start Date: 02/01/22 Stop Date: 05/02/22 Status: Ordered Problem List Condition Effective Dates Status Health Status Informant COPD with asthma(Confirmed) Active Type 2 Diabetes Mellitus with Active peripheral neuropathy(Confirmed) Family history of early CAD(Confirmed) Active Hypertension(Confirmed) Active Tobacco use(Confirmed) Active Diagnosis Diagnosis Type Effective Dates Health Clinical Infor [facility] Status Service Type 2 Diabetes Discharge 02/07/22 Mellitus with Diagnosis peripheral neuropathy COPD with asthma Discharge 02/07/22 Diagnosis Hypertension Discharge 02/07/22 Diagnosis Tobacco use Discharge 02/07/22 Diagnosis Wound of left foot Discharge 02/07/22 Diagnosis Vital Signs Most recent to oldest [Reference Range]: 1 2 Height 160.02 cm 160.02 cm (02/07/22 10:35 AM) (02/07/22 9:46 AM) Weight 74.9 kg (02/07/22 9:46 AM) Oxygen Saturation [94-100 %] 97 % (02/07/22 9:46 AM) Pulse Rate [55-90 bpm] 110 bpm *H* (02/07/22 9:46 AM) Body Mass Index [18.5-24.99] 29.25 *H* (8/29/22 9:46 AM) Blood Pressure [90-138/55-84 mm Hg] 136/70 mm Hg 170/ 86 mm Hg (02/07/22 10:35 AM) *H* (02/07/22 9:46 AM) Blood pressure sites Arm, left Arm, left (02/07/22 10:35 AM) (02/07/22 9:46 AM) Weight Obtained Via Standing scale (02/07/22 9:46 AM) Social History Social History Type Response Smoking Status Current every day smoker; To bacco user in household: Yes; Type: Cigarettes; Other: more than 5 a day; entered on: 12/28/16 Sex Care Team PersonnelName: Danica Vallejo NP Address: [address] [place] [id number]
--- OUTSIDE RECORDS SUMMARY | 2022-04-30 23:00 | XMS_ITS | Continuity of Care Document ---
:1970 Author Organization [facility] Address [address] [place] [address]- Care Team Providers Name Role Phone Genevieve MORA, Danica Primary Care Physician [place] [facility] [place] Date(s): 09/01/21 - 10/01/21 [facility] [address] [place], [place] [address] Allergies, Adverse Reactions, Alerts Substance [...] 08/30/21 7:52:00 EDT, Route to Pharmacy Electronically, [facility]/pharmacy #[id number], Partial fill upon patient request if the prescription is for a schedule II opioid drug.... Start Date: 08/30/21 Status: OrderedAspirin Enteric Coated 81 mg oral delayed release tablet 1 tablet = 81 mg, By Mouth, Daily, # 30 tablet, 5 Refills, Maintenance, 08/30/21 7:52:00 EDT, [facility]/pharmacy #[id number], 160.02, cm, 08/26/21 10:47:00 EDT, Height Start Date: 08/30/21 Stop Date: 02/26/22 Status: Orderedatorvastatin 10 mg oral tablet 1 tablet = 10 mg, By Mouth, Daily, Cholesterol medication, # 30 tablet, 2 Refills, Maintenance, 08/30/21 7:52:00 EDT, [facility]/pharmacy #[id number], 160.02, cm, 08/26/21 10:47:00 EDT, Height [...] 07/30/21 11:08:00 EST, Route to Pharmacy Electronically, [facility]/pharmacy #[id number], 160.02, cm, 11/22/19 13:52:00 EDT, Height Start Date: 07/30/21 Status: Orderedglipizide-metformin 5 mg-500 mg oral tablet 2 tablet, By Mouth, 2 times a day, DIABETES, # 60 tablet, 2 Refills, Maintenance, 08/30/21 7:52:00 EDT, Tablet, [facility]/pharmacy #[id number], 2 tablet By Mouth 2 times [...] tablet, 2 Refills, Maintenance, 08/30/21 7:52:00 EDT, [facility]/pharmacy #207, please cancel lisinopril, 1 tablet By Mouth Daily,Instr:NEW BLOOD PRESSURE MEDICATION, 160.02, cm, 08/26/21 10:47:... Start Date: 08/30/21 Status: OrderedIncruse Ellipta 62.5 mcg/inh inhalation powder 1 each, Inhalation, Every 24 hours, doses should be taken at least 24 hours apart, # 30 each, 2 Refills, Maintenance, 08/30/21 7:52:00 EDT, Powder, [facility]/pharmacy #[id number], 160.02, cm, 08/26/21 10:47:00 EDT, Height Start Date: 08/30/21 Status: OrderedLantus Solostar Pen 100 units/mL subcutaneous solution = 10 units, Subcutaneous Injection, Daily at bedtime, # 15 mL, 1 Refills, Maintenance, 09/20/21 8:37:00 EDT, Solution, [facility]/pharmacy #[id number], Partial fill upon patient request if the prescription is for aschedule II opioid drug., 160.02, cm, 09/17/21 8:... Start Date: 09/20/21 Status: OrderedNebulizer mask and tubing Nebulizer mask and tubing, See Instructions, # 1 each, Refills 0, Tot. Refills 0, Maintenance, Dx: Asthma J44.9. To be used with albuterol, 12/17/19 10:33:00 EDT, Compound Start Date: 12/17/19 Status: OrderedPen [place], 31 G x 5 mm BD Ultra [...] 08/30/21 7:52:00 EDT, Route to Pharmacy Electronically, [facility]/pharmacy #[id number], 160.02, cm, 08/26/21 10:47:00 EDT, Height [...]
--- OUTSIDE RECORDS SUMMARY | 2022-04-30 23:00 | XMS_ITS | Continuity of Care Document ---
:1970 Author Organization [facility] Address [address] [place] [address]- Care Team Providers Name Role Phone Medina Moss MD Primary Care Physician Encounter [facility] Date(s): 05/05/20 - 06/04/20 [facility] [address] [place], [place] [address] Attending Physician: Mitul Patel Admitting Physician: AdmtrMitul Referring Physician: Admtr, Ar8 Allergies, Adverse Reactions, [...] 5 Refills, Maintenance, 03/24/20 14:24:00 EDT, [facility]/pharmacy #[id number], 160.02, cm, 11/22/19 13:52:00 EDT, Height, 74, kg, 01/04/19 9:01:00 EDT, Dry Weight Start Date: 03/24/20 Stop Date: 09/20/20 Status: Orderedatorvastatin 10 mg oral tablet 1 tablet = 10 mg, By Mouth, Daily, Cholesterol medication, # 30 tablet, 5 Refills, Maintenance, 03/24/20 14:24:00 EDT, [facility]/pharmacy #[id number], 160.02, cm, 11/22/19 13:52:00 EDT, Height, 74, kg, 01/04/19 9:01:00 EDT, Dry Weight Start Date: 03/24/20 Status: OrderedBydureon Pen 2 mg subcutaneous injection, extended release See Instructions, INJECT 2 MG BY SUBCUTANEOUS INFUSION EVERY 7 DAYS, # 4 Unknown, 5 Refills, 03/24/20 14:24:00 EDT, [facility]/pharmacy #[id number], 160.02, cm, 11/22/19 13:52:00 EDT, Height, 74, kg, 01/04/19 9:01:00 EDT, Dry Weight Start Date: 03/24/20 Status: Orderedcyclobenzaprine 5 mg oral tablet 1 tablet = 5 mg, By Mouth, 3 times a day, PRN Spasm, # 40 tablet, 3 Refills, Maintenance, 03/24/20 14:26:00 EDT, Tablet, [facility]/pharmacy #207, 160.02, cm, 11/22/19 13:52:00 EDT, Height, [...] 14:25:00 EDT, Route to Pharmacy Electronically, [facility]/pharmacy #207, 160.02, cm, 11/22/19 13:52:00 EDT, Height, 74, kg, 01/04/19 9:01:00 EDT,... Start Date: 03/24/20 Status: Orderedglipizide-metformin 5 mg-500 mg oral tablet 2 tablet, By Mouth, 2 times a day, DIABETES, # 60 tablet, 5 Refills, Maintenance, 03/24/20 14:25:00 EDT, Tablet, [facility]/pharmacy #207, 2 tablet By Mouth 2 [...] 2 Refills, Maintenance, 03/24/20 14:22:00 EDT, [facility]/pharmacy #207, please cancel lisinopril, 1 tablet By Mouth Daily,Instr:NEW BLOOD PRESSURE MEDICATION, 160.02, cm, 11/22/19 13:52... Start Date: 03/24/20 Status: OrderedIncruse Ellipta 62.5 mcg/inh inhalation powder 1 each, Inhalation, Every 24 hours, doses should be taken at least 24 hours apart, # 30 each, 5 Refills, Maintenance, 03/24/20 14:20:00 EDT, Powder, [facility]/pharmacy #207, 160.02, cm, 11/22/19 13:52:00 EDT, Height, [...] Replace Required Details, Route to Pharmacy Electronically, [id number]... Start Date: 03/24/20 Status: OrderedSingulair 10 mg oral tablet 10 mg, 1, tablet, By Mouth, Daily in PM, ASTHMA, # 30 tablet, Refills 11, Tot. Refills 11, Maintenance, 03/24/20 14:19:00 EDT, Route to Pharmacy Electronically, [facility]/pharmacy #[id number], 160.02, cm, 11/21/2012:52:00 EDT, Height, 74, [...]
--- OUTSIDE RECORDS SUMMARY | 2022-04-30 23:00 | XMS_ITS | Continuity of Care Document ---
:1970 Author Organization [facility] Address [address] [place] [address]- Care Team Providers Name Role Phone Genevieve MORA, Danica Primary Care Physician Encounter [facility] Date(s): 05/21/21 - 07/18/21 [facility] [address] [place] [address]- Attending Physician: Danica Vallejo NP Allergies, Adverse Reactions, Alerts Substance Reaction Severity Status penicillin Hives Active Immunizations Given and Recorded Vaccine Date Status Refusal Reason SARS-CoV-2 (COVID-19) mRNA-1273 vaccine 11/08/20 Recorded SARS-CoV-2 (COVID-19) mRNA-1273 vaccine 10/11/20 Recorded Medications Advair HFA 115 mcg / 21 mcg 2 puffs, Inhalation, 2 times a day, # 1 each, 5 Refills, Maintenance, 11/13/20 9:29:00 EDT, Aerosol,[facility]/pharmacy #[id number], 2 puffs Inhalation 2 times a day, 160.02, cm, 11/22/19 13:52:00 EDT, Height, 74,kg, 01/04/19 9:01:00 EDT, Dry Weight Start Date: 11/13/20 Status: Orderedalbuterol 0.083% inhalation solution 3 mL = 2.5 mg, Inhalation, Every 6 hours, PRN for wheezing, # 25 each, 1 Refills, Maintenance, 06/16/21 9:12:00 EST, Solution, [id number], Partial fill upon patient request if the prescription is for a schedule II opioid drug., 160.02, cm, ... Start Date: 06/16/21 Status: Orderedalbuterol 0.083% inhalation solution 3 mL = 2.5 mg, Inhalation, Every 4 hours, PRN for wheezing, # 25 each, 5 Refills, Maintenance, 08/14/20 13:09:00 EST, Solution, [facility]/pharmacy #[id number], 160.02, cm, 11/22/19 13:52:00 EDT, Height, [...] Daily, # 30 tablet, 5 Refills, Maintenance, 11/13/20 9:29:00 EDT, [facility]/pharmacy #207, 160.02, cm, 11/22/19 13:52:00 EDT, Height, 74, kg, 01/04/19 9:01:00 EDT, Dry Weight Start Date: 11/13/20 Stop Date: 05/12/21 Status: Orderedatorvastatin 10 mg oral tablet 1 tablet = 10 mg, By Mouth, Daily, Cholesterol medication, # 30 tablet, 5 Refills, Maintenance, 11/13/20 9:29:00 EDT, [facility]/pharmacy #[id number], 160.02, cm, 11/22/19 13:52:00 EDT, Height, 74, kg, 01/04/19 9:01:00 EDT, Dry Weight Start Date: 11/13/20 Status: OrderedBydureon Pen 2 mg subcutaneous injection, extended release See Instructions, INJECT 2 MG BY SUBCUTANEOUS INFUSION EVERY 7 DAYS, # 4 Unknown, 5 Refills, 11/13/20 9:28:00 EDT, [facility]/pharmacy #[id number], 160.02, cm, 11/22/19 13:52:00 EDT, Height, 74, kg, 01/04/19 9:01:00 EDT, Dry Weight Start Date: 11/13/20 Status: Orderedcyclobenzaprine 5 mg oral tablet 1 tablet = 5 mg, By Mouth, 3 times a day, PRN Spasm, # 40 tablet, 3 Refills, Maintenance, 03/24/20 14:26:00 EDT, Tablet, [facility]/pharmacy #207, 160.02, cm, 11/22/19 13:52:00 EDT, Height, 74, kg, 01/04/19 9:01:00 EDT, Dry Weight Start Date: 03/24/20 Status: Orderedfluconazole 150 mg oral tablet 1 tablet = 150 mg, By Mouth, Once, Repeat dose if still having symptoms in 72 hours, # 2 tablet, 0 Refills, Soft Stop, 11/13/20 9:32:00 EDT, Tablet, [facility]/pharmacy #207, Partial fill upon patient request if the prescription is for a schedule II opioid... Start Date: 11/13/20 Status: OrderedFreestyle Lite Test Strips See Instructions, [...] at bedtime, # 60 capsule, Refills 0, Route to Pharmacy Electronically, [facility] STORE [id number], 160.02, cm, 11/22/19 13:52:00 EDT, Height Start Date: 06/29/21 Status: Orderedglipizide-metformin 5 mg-500 mg oral tablet 2 tablet, By Mouth, 2 times a day, DIABETES, # 60 tablet, 5 Refills, Maintenance, 11/13/20 9:30:00 EDT, Tablet, [facility]/pharmacy #207, 2 tablet By Mouth 2 times a day,Instr:DIABETES, 160.02, cm, 11/22/19 13:52:00 EDT, Height, 74, kg, 01/04/19 9:01:00 EDT... Start Date: 11/13/20 Status: OrderedHome Blood Pressure Monitor See Instructions, # 1 each, Maintenance, Monitor BP once daily and write down on your BP log. Dx: Essential Hypertension I10, 03/24/20 14:31:00 EDT, Compound Start Date: 03/24/20 Status: Orderedhydrochlorothiazide-lisinopril 12.5 mg-20 mg oral tablet 1 tablet, By Mouth, Daily, NEW BLOOD PRESSURE MEDICATION, # 30 tablet, 5 Refills, Maintenance, 11/13/20 9:30:00 EDT, [facility]/pharmacy #[id number], please cancel lisinopril, 1 tablet By Mouth Daily,Instr:NEW BLOOD PRESSURE MEDICATION, 160.02, cm, 11/22/19 13:52:... Start Date: 11/13/20 Status: OrderedIncruse Ellipta 62.5 mcg/inh inhalation powder 1 each, Inhalation, Every 24 hours, doses should be taken at least 24 hours apart, # 30 each, 5 Refills, Maintenance, 11/13/20 9:30:00 EDT, Powder, [facility]/pharmacy #[id number], 160.02, cm, 11/22/19 13:52:00 EDT, Height, 74, kg, 01/04/19 9:01:00 EDT, Dry Weight Start Date: 11/13/20 Status: OrderedNebulizer mask and tubing Nebulizer mask and tubing, See Instructions, # 1 each, Refills 0, Tot. Refills 0, Maintenance, Dx: Asthma J44.9. To be used with albuterol, 12/17/19 10:33:00 EDT, Compound Start Date: 12/17/19 Status: OrderedSingulair 10 mg oral tablet 10 mg, 1, tablet, By Mouth, Daily in PM, ASTHMA, # 30 tablet, Refills 5, Tot. Refills 5, Maintenance, 11/13/20 9:29:00 EDT, Route to Pharmacy Electronically, [facility]/pharmacy #[id number], 160.02, cm, 11/22/19 13:52:00 EDT, Height, 74, kg, 01/04/19 9:01:00 EDT,... Start Date: 11/13/20 Status: Ordered Problem List Condition Effective Dates [...]
--- OUTSIDE RECORDS SUMMARY | 2022-04-30 23:00 | XMS_ITS | Continuity of Care Document ---
:1970 Author Organization [facility] Address [address] [place] [address]- Care Team Providers Name Role Phone Medina Moss MD Primary Care Physician Encounter [place] Date(s): 03/24/20 - 03/31/20 [facility] [address] [place] [address]- [facility] Attending Physician: Medina Moss MD Allergies, Adverse Reactions, Alerts Substance [...] tablet, 5 Refills, Maintenance, 03/24/20 14:24:00 EDT, [facility]/pharmacy #[id number], 160.02, cm, 11/22/19 13:52:00 EDT, Height, 74, kg, 01/04/19 9:01:00 EDT, Dry Weight Start Date: 03/24/20 Stop Date: 09/20/20 Status: Orderedatorvastatin 10 mg oral tablet 1 tablet = 10 mg, By Mouth, Daily, Cholesterol medication, # 30 tablet, 5 Refills, Maintenance, 03/24/20 14:24:00 EDT, [facility]/pharmacy #[id number], 160.02, cm, 11/22/19 13:52:00 EDT, Height, 74, kg, 01/04/19 9:01:00 EDT, Dry Weight Start Date: 03/24/20 Status: OrderedBydureon Pen 2 mg subcutaneous injection, extended release See Instructions, INJECT 2 MG BY SUBCUTANEOUS INFUSION EVERY 7 DAYS, # 4 Unknown, 5 Refills, 03/24/20 14:24:00 EDT, [facility]/pharmacy #[id number], 160.02, cm, 11/22/19 13:52:00 EDT, Height, 74, kg, 01/04/19 9:01:00 EDT, Dry Weight Start Date: 03/24/20 Status: Orderedcyclobenzaprine 5 mg oral tablet 1 tablet = 5 mg, By Mouth, 3 times a day, PRN Spasm, # 40 tablet, 3 Refills, Maintenance, 03/24/20 14:26:00 EDT, Tablet, [facility]/pharmacy #207, 160.02, cm, 11/22/19 13:52:00 EDT, Height, [...] 03/24/20 14:25:00 EDT, Route to Pharmacy Electronically, [facility]/pharmacy #207, 160.02, cm, 11/22/19 13:52:00 EDT, Height, 74, kg, 01/04/19 9:01:00 EDT,... Start Date: 03/24/20 Status: Orderedglipizide-metformin 5 mg-500 mg oral tablet 2 tablet, By Mouth, 2 times a day, DIABETES, # 60 tablet, 5 Refills, Maintenance, 03/24/20 14:25:00 EDT, Tablet, [facility]/pharmacy #[id number], 2 tablet By Mouth 2 times [...] tablet, 2 Refills, Maintenance, 03/24/20 14:22:00 EDT, [facility]/pharmacy #207, please cancel lisinopril, 1 tablet By Mouth Daily,Instr:NEW BLOOD PRESSURE MEDICATION, 160.02, cm, 11/22/19 13:52... Start Date: 03/24/20 Status: OrderedIncruse Ellipta 62.5 mcg/inh inhalation powder 1 each, Inhalation, Every 24 hours, doses should be taken at least 24 hours apart, # 30 each, 5 Refills, Maintenance, 03/24/20 14:20:00 EDT, Powder, [facility]/pharmacy #207, 160.02, cm, 11/22/19 13:52:00 EDT, Height, [...] Replace Required Details, Route to Pharmacy Electronically, [id number]... Start Date: 03/24/20 Status: OrderedSingulair 10 mg oral tablet 10 mg, 1, tablet, By Mouth, Daily in PM, ASTHMA, # 30 tablet, Refills 11, Tot. Refills 11, Maintenance, 03/24/20 14:19:00 EDT, Route to Pharmacy Electronically, [facility]/pharmacy #[id number], 160.02, cm, 11/21/2012:52:00 EDT, Height, 74, [...]
--- OUTSIDE RECORDS SUMMARY | 2022-04-30 23:00 | XMS_ITS | Continuity of Care Document ---
:1970 Author Organization [facility] Address [address] [place] [address]- Care Team Providers Name Role Phone Medina Moss MD Primary Care Physician [place] [facility] [place] 11/22[place] - 11/29/19 [facility] [address] [place] [address]- [facility] Attending Physician: Medina Moss MD Allergies, Adverse [...] tablet, 5 Refills, Maintenance, 10/29/19 13:46:00 EDT, [facility]/pharmacy #[id number], 160.02, cm, 01/04/19 9:01:00 EDT, Height, 74, kg, 01/04/19 9:01:00 EDT, Dry Weight Start Date: 10/29/19 Stop Date: 04/26/20 Status: Orderedatorvastatin 10 mg oral tablet 1 tablet = 10 mg, By Mouth, Daily, Cholesterol medication, # 30 tablet, 5 Refills, Maintenance, 10/30/19 12:11:00 EDT, [facility]/pharmacy #[id number], 160.02, cm, 10/30/19 9:28:00 EDT, Height, 74, kg, 01/04/19 9:01:00 EDT, Dry Weight Start Date: 10/30/19 Status: OrderedBydureon Pen 2 mg subcutaneous injection, extended release See Instructions, INJECT 2 MG BY SUBCUTANEOUS INFUSION EVERY 7 DAYS, # 4 Unknown, 5 Refills, Maintenance, [facility] STORE [id number], 160.02, cm, 10/30/19 9:28:00 EDT, Height, 74, kg, 01/04/19 9:01:00 EDT, Dry Weight Start Date: 10/30/19 Status: Orderedcyclobenzaprine 5 mg oral tablet 1 tablet = 5 mg, By Mouth, 3 times a day, PRN Spasm, # 40 tablet, 3 Refills, Maintenance, 10/30/19 12:12:00 EDT, Tablet, [facility]/pharmacy #[id number], 160.02, cm, 10/30/19 9:28:00 EDT, Height, 74, kg, 01/04/19 9:01:00 EDT, Dry Weight Start Date: 10/30/19 Status: OrderedFreestyle Lite Test Strips See Instructions, # 300 each, Refills 4, Tot. Refills 4, Maintenance, Type 2 Diabetes Mellitus ICD 10 E 11.9. Test 4 times daily. Ok to substitute with any brand covered by insurance, 07/14/17 18:35:58, Compound Start Date: 07/14/17 Stop Date: 10/07/18 Status: OrderedFreestyle Lite Test Strips See Instructions, [...] 10/30/19 12:12:00 EDT, Route to Pharmacy Electronically, [facility]/pharmacy #[id number], 160.02, cm, 10/30/19 9:28:00 EDT, Height, 74, kg, 01/04/19 9:01:00 EDT,... Start Date: 10/30/19 Status: Orderedglipizide-metformin 5 mg-500 mg oral tablet 2 tablet, By Mouth, 2 times a day, DIABETES, # 60 tablet, 5 Refills, Maintenance, 10/30/19 12:13:00 EDT, Tablet, [facility]/pharmacy #[id number], 2 tablet By Mouth 2 times a day,Instr:DIABETES, 160.02, cm, 209:28:00 EDT, Height, 74, kg, 01/04/19 9:01:00 EDT... Start Date: 10/30/19 Status: Orderedlisinopril 10 mg oral tablet 10 mg, 1, tablet, By Mouth, Daily, BLOOD PRESSURE, # 30 tablet, Refills 5, Tot. Refills 5, Maintenance, 10/30/19 12:13:00 EDT, Route to Pharmacy Electronically, [facility]/pharmacy #[id number], Appt required for further refills, 160.02, cm, 10/30/19 9:28:00 EDT, H... Start Date: 10/30/19 Status: OrderedNebulizer mask and tubing Nebulizer mask and tubing, See Instructions, # 1 each, Refills 0, Tot. Refills 0, Maintenance, Dx: Asthma J44.9. To be used with albuterol, 10/30/19 12:09:00 EDT, Compound Start Date: 10/30/19 Status: OrderedProAir HFA 90 mcg/inh inhalation aerosol with adapter See Instructions, INHALE 2 PUFFS EVERY 4 HOURS NEEDED FOR WHEEZING/SHORTNESS OF BREATH, # 8.5 Unknown, Refills 5, Maintenance, Instructions Replace Required Details, Route to Pharmacy Electronically, [id number], [facility] STORE... Start Date: 10/29/19 Status: OrderedSingulair 10 mg oral tablet 10 mg, 1, tablet, By Mouth, Daily in PM, ASTHMA, # 30 tablet, Refills 5, Tot. Refills 5, Maintenance, 10/30/19 12:07:00 EDT, Route to Pharmacy Electronically, [facility]/pharmacy #[id number], 160.02, cm, 10/30/19 9:28:00 EDT, Height, 74, kg, 01/04/19 9:01:00 EDT,... Start Date: 10/30/19 Status: Ordered Problem List Condition Effective Dates Status Health Status Informant COPD with asthma(Confirmed) Active Type 2 Diabetes Mellitus with Active peripheral neuropathy(Confirmed) Family history of early CAD(Confirmed) Active Hypertension(Confirmed) Active Tobacco use(Confirmed) Active Vital Signs Most recent to oldest [Reference Range]: 1 Height 160.02 cm (11/22/19 1:52 PM) Weight 72.7 kg (11/22/19 1:52 PM) Body Mass Index [18.5-24.99] 28.39 *H* (11/22/19 1:52 PM) Blood Pressure [90-138/55-84 mm Hg] 130/90 mm Hg (11/22/19 1:52 PM) Blood pressure sites Arm, left (11/22/19 1:52 PM) Weight Obtained Via Patient/family stated (11/22/19 1:52 PM) Social History Social History Type Response Smoking Status Current every day smoker; To bacco user in household: Yes; Other: 2 packs a day; entered on: 01/03/17 Sex
--- OUTSIDE RECORDS SUMMARY | 2022-04-30 23:00 | XMS_ITS | Continuity of Care Document ---
:[address] [facility] Address [address] [place] [address]- Care Team Providers Name Role Phone Genevieve MORA, Danica Primary Care Physician [place] [facility] [place]17/[place] - 10/17/21 [facility] [address] [place], [place] [address] Allergies, Adverse Reactions, Alerts Substance [...] 08/30/21 7:52:00 EDT, Route to Pharmacy Electronically, [facility]/pharmacy #[id number], Partial fill upon patient request if the prescription is for a schedule II opioid drug.... Start Date: 08/30/21 Status: OrderedAspirin Enteric Coated 81 mg oral delayed release tablet 1 tablet = 81 mg, By Mouth, Daily, # 30 tablet, 5 Refills, Maintenance, 08/30/21 7:52:00 EDT, [facility]/pharmacy #[id number], 160.02, cm, 08/26/21 10:47:00 EDT, Height Start Date: 08/30/21 Stop Date: 02/26/22 Status: Orderedatorvastatin 10 mg oral tablet 1 tablet = 10 mg, By Mouth, Daily, Cholesterol medication, # 30 tablet, 2 Refills, Maintenance, 08/30/21 7:52:00 EDT, [facility]/pharmacy #[id number], 160.02, cm, 08/26/21 10:47:00 EDT, [...] 07/30/21 11:08:00 EST, Route to Pharmacy Electronically, [facility]/pharmacy #[id number], 160.02, cm, 11/22/19 13:52:00 EDT, Height Start Date: 07/30/21 Status: Orderedglipizide-metformin 5 mg-500 mg oral tablet 2 tablet, By Mouth, 2 times a day, DIABETES, # 60 tablet, 2 Refills, Maintenance, 08/30/21 7:52:00 EDT, Tablet, [facility]/pharmacy #[id number], 2 tablet By Mouth 2 [...] tablet, 2 Refills, Maintenance, 08/30/21 7:52:00 EDT, [facility]/pharmacy #207, please cancel lisinopril, 1 tablet By Mouth Daily,Instr:NEW BLOOD PRESSURE MEDICATION, 160.02, cm, 08/26/21 10:47:... Start Date: 08/30/21 Status: OrderedIncruse Ellipta 62.5 mcg/inh inhalation powder 1 each, Inhalation, Every 24 hours, doses should be taken at least 24 hours apart, # 30 each, 2 Refills, Maintenance, 08/30/21 7:52:00 EDT, Powder, [facility]/pharmacy #[id number], 160.02, cm, 08/26/21 10:47:00 EDT, Height Start Date: 08/30/21 Status: OrderedLantus Solostar Pen 100 units/mL subcutaneous solution = 10 units, Subcutaneous Injection, Daily at bedtime, # 15 mL, 1 Refills, Maintenance, 09/20/21 8:37:00 EDT, Solution, [facility]/pharmacy #[id number], Partial fill upon patient request if the prescription is for aschedule II opioid drug., 160.02, cm, 09/17/21 8:... Start Date: 09/20/21 Status: OrderedNebulizer mask and tubing Nebulizer mask and tubing, See Instructions, # 1 each, Refills 0, Tot. Refills 0, Maintenance, Dx: Asthma J44.9. To be used with albuterol, 12/17/19 10:33:00 EDT, Compound Start Date: 12/17/19 Status: OrderedPen [place], 31 G x 5 mm BD Ultra [...] 08/30/21 7:52:00 EDT, Route to Pharmacy Electronically, [facility]/pharmacy #[id number], 160.02, cm, 08/26/21 10:47:00 EDT, [...]
--- OUTSIDE RECORDS SUMMARY | 2022-04-30 23:00 | XMS_ITS | Continuity of Care Document ---
:1970 Author Organization [facility] Address [address] [place] [address]- Care Team Providers Name Role Phone Genevieve MORA, Danica Primary Care Physician Encounter [facility] Date(s): 11/03/21 - 12/03/21 [facility] [address] [place], [place] [address] Allergies, Adverse Reactions, Alerts Substance Reaction [...] 08/30/21 7:52:00 EDT, Route to Pharmacy Electronically, [facility]/pharmacy #[id number], Partial fill upon patient request if the prescription is for a schedule II opioid drug.... Start Date: 08/30/21 Status: OrderedAspirin Enteric Coated 81 mg oral delayed release tablet 1 tablet = 81 mg, By Mouth, Daily, # 30 tablet, 5 Refills, Maintenance, 08/30/21 7:52:00 EDT, [facility]/pharmacy #[id number], 160.02, cm, 08/26/21 10:47:00 EDT, Height Start Date: 08/30/21 Stop Date: 02/26/22 Status: Orderedatorvastatin 10 mg oral tablet 1 tablet = 10 mg, By Mouth, Daily, Cholesterol medication, # 30 tablet, 2 Refills, Maintenance, 08/30/21 7:52:00 EDT, [facility]/pharmacy #[id number], 160.02, cm, 08/26/21 10:47:00 EDT, Height [...] 12/03/21 16:03:00 EDT, Route to Pharmacy Electronically, [facility]/pharmacy #[id number], 160.02, cm, 09/21/21 11:48:00 EDT, Height Start Date: 12/03/21 Status: Orderedglipizide-metformin 5 mg-500 mg oral tablet 2 tablet, By Mouth, 2 times a day, DIABETES, # 60 tablet, 2 Refills, Maintenance, 08/30/21 7:52:00 EDT, Tablet, [facility]/pharmacy #207, 2 tablet By Mouth 2 times [...] tablet, 2 Refills, Maintenance, 08/30/21 7:52:00 EDT, [facility]/pharmacy #207, please cancel lisinopril, 1 tablet By Mouth Daily,Instr:NEW BLOOD PRESSURE MEDICATION, 160.02, cm, 08/26/21 10:47:... Start Date: 08/30/21 Status: OrderedIncruse Ellipta 62.5 mcg/inh inhalation powder 1 each, Inhalation, Every 24 hours, doses should be taken at least 24 hours apart, # 30 each, 2 Refills, Maintenance, 08/30/21 7:52:00 EDT, Powder, [facility]/pharmacy #207, 160.02, cm, 08/26/21 10:47:00 EDT, Height [...] EDT, Compound Start Date: 12/17/19 Status: OrderedPen [place], 31 G x 5 mm BD [...] 08/30/21 7:52:00 EDT, Route to Pharmacy Electronically, [facility]/pharmacy #[id number], 160.02, cm, 08/26/21 10:47:00 EDT, Height [...]
--- OUTSIDE RECORDS SUMMARY | 2022-04-30 23:00 | XMS_ITS | Continuity of Care Document ---
:1970 Author Organization [facility] Address [address] [place] [address]- Care Team Providers Name Role Phone Medina Moss MD Primary Care Physician Encounter [facility] Date(s): 09/11/19 - 09/21/19 [facility] [address] [place] [address]- [facility] Attending Physician: Admtr, Ar8 Admitting Physician: Admtr, Ar8 Referring Physician: Admtr, Ar8 Allergies, Adverse Reactions, Alerts Substance Reaction Severity Status NKA Active Medications Advair HFA 115 mcg / 21 mcg 2 puffs, Inhalation, 2 times a day, # 1 each, 5 Refills, Maintenance, 04/29/19 10:25:24 EST, Aerosol, 2 puffs Inhalation 2 times a day Start Date: 04/29/19 Status: Orderedalbuterol 0.083% inhalation solution 3 mL = 2.5 mg, Inhalation, Every 4 hours, PRN for wheezing, # 25 each, 3 Refills, Maintenance, 04/29/19 10:25:23 EST, Solution Start Date: 04/29/19 Status: Orderedalbuterol CFC free 90 mcg/inh inhalation aerosol 2, puffs, Inhalation, Every 4 hours, PRN, # 1 each, Refills 5, Tot. Refills 5, Maintenance, 07/09/2014:23:00 EST, Route to Pharmacy Electronically, [id number], [facility]/pharmacy #[id number], 160.02, cm, 01/04/19 9:01:00 EDT, Height, 74... Start Date: 07/09/19 Status: OrderedAlcohol Wipes See Instructions, # 1 box, Refills 6, Tot. Refills 6, Maintenance, Type 2 Diabetes Mellitus ICD 10 E11.9. Test 3 times daily., 01/04/19 9:49:06 EDT, Compound Start Date: 01/04/19 Status: OrderedAspirin Enteric Coated 81 mg oral delayed release tablet 1 tablet = 81 mg, By Mouth, Daily, # 30 tablet, 11 Refills, Maintenance, 01/04/19 9:31:27 EDT Start Date: 01/04/19 Stop Date: 12/30/19 Status: Orderedatorvastatin 10 mg oral tablet 1 tablet = 10 mg, By Mouth, Daily, Cholesterol medication, # 30 tablet, 2 Refills, Maintenance, 07/24/19 19:22:00 EST, [facility]/pharmacy #[id number], 160.02, cm, 01/04/19 9:01:00 EDT, Height, 74, kg, 01/04/19 9:01:00 EDT, Dry Weight Start Date: 07/24/19 Status: OrderedBydureon Pen 2 mg subcutaneous injection, extended release = 2 mg, Subcutaneous Infusion, Every 7 days, # 4 each, 5 Refills, Maintenance, 01/08/19 16:53:22 EDT Start Date: 01/08/19 Status: Orderedcyclobenzaprine 5 mg oral tablet 1 tablet = 5 mg, By Mouth, 3 times a day, PRN Spasm, # 40 tablet, 3 Refills, Maintenance, 01/04/19 9:34:51 EDT, Tablet Start Date: 01/04/19 Status: Orderedfluconazole 150 mg oral tablet 1 tablet = 150 mg, By Mouth, Once, # 1 tablet, 0 Refills, Soft Stop, 01/08/19 17:04:48 EDT, Tablet Start Date: 01/08/19 Status: OrderedFreestyle Lite Test Strips See Instructions, [...] 10 E 11.9. Test 3 times daily., 01/04/19 9:49:10 EDT, Compound Start Date: 01/04/19 Status: Orderedgabapentin 300 mg oral capsule 300 mg, 1, capsule, By Mouth, 3 times a day, NERVE PAIN, # 90 capsule, Refills 2, Tot. Refills 2, Maintenance, 06/25/19 14:07:00 EST, Route to Pharmacy Electronically, [facility]/pharmacy #[id number], note dose increase, 160.02, cm, 01/04/19 9:01:00 EDT, Height, 7... Start Date: 06/25/19 Stop Date: 09/23/19 Status: Orderedglipizide-metformin 5 mg-500 mg oral tablet 2 tablet, By Mouth, 2 times a day, DIABETES, # 60 tablet, 5 Refills, Maintenance, 01/04/19 9:38:05 EDT, Tablet, 2 tablet By Mouth 2 times a day,Instr:DIABETES Start Date: 01/04/19 Status: Orderedlisinopril 10 mg oral tablet 10 mg, 1, tablet, By Mouth, Daily, BLOOD PRESSURE, # 30 tablet, Refills 2, Tot. Refills 2, Maintenance, 07/24/19 19:22:00 EST, Route to Pharmacy Electronically, [facility]/pharmacy #[id number], Appt required for further refills, 160.02, cm, 01/04/19 9:01:00 EDT, H... Start Date: 07/24/19 Status: OrderedpredniSONE 20 mg oral tablet 2 tablet = 40 mg, By Mouth, Daily, for 5 days, # 10 tablet, 0 Refills, Acute 09/23/19 20:12:00 EDT, 09/18/19 20:12:00 EDT, [facility]/pharmacy #[id number], 160.02, cm, 01/04/19 9:01:00 EDT, Height, 74, kg, :01:00 EDT, Dry Weight Start Date: 09/18/19 Stop Date: 09/23/19 Status: OrderedSingulair 10 mg oral tablet 10 mg, 1, tablet, By Mouth, Daily in PM, ASTHMA, # 30 tablet, Refills 5, Tot. Refills 5, Maintenance, 01/04/19 9:33:06 EDT, Route to Pharmacy Electronically, [id number], [facility]/pharmacy #[id number] Start Date: 01/04/19 Status: Ordered Problem List Condition Effective Dates [...]
--- OUTSIDE RECORDS SUMMARY | 2022-04-30 23:00 | XMS_ITS | Continuity of Care Document ---
:1970 Author Organization [facility] Address [address] [place] [address]- Care Team Providers Name Role Phone Isa CISNEROS, Medina Primary Care Physician Encounter [facility] Date(s): 06/22/20 - 06/29/20 [facility] [address] [place], [place] [address] Encounter Diagnosis UTI symptoms (Discharge Diagnosis) - 06/22/20 Attending Physician: Emilie Dangelo MD Referring Physician: Medina Moss MD Allergies, Adverse Reactions, [...] tablet, 5 Refills, Maintenance, 03/24/20 14:24:00 EDT, [facility]/pharmacy #[id number], 160.02, cm, 11/22/19 13:52:00 EDT, Height, 74, kg, 01/04/19 9:01:00 EDT, Dry Weight Start Date: 03/24/20 Stop Date: 09/20/20 Status: Orderedatorvastatin 10 mg oral tablet 1 tablet = 10 mg, By Mouth, Daily, Cholesterol medication, # 30 tablet, 5 Refills, Maintenance, 03/24/20 14:24:00 EDT, [facility]/pharmacy #[id number], 160.02, cm, 11/22/19 13:52:00 EDT, Height, 74, kg, 01/04/19 9:01:00 EDT, Dry Weight Start Date: 03/24/20 Status: OrderedBydureon Pen 2 mg subcutaneous injection, extended release See Instructions, INJECT 2 MG BY SUBCUTANEOUS INFUSION EVERY 7 DAYS, # 4 Unknown, 5 Refills, 03/24/20 14:24:00 EDT, [facility]/pharmacy #[id number], 160.02, cm, 11/22/19 13:52:00 EDT, Height, 74, kg, 01/04/19 9:01:00 EDT, Dry Weight Start Date: 03/24/20 Status: Orderedcyclobenzaprine 5 mg oral tablet 1 tablet = 5 mg, By Mouth, 3 times a day, PRN Spasm, # 40 tablet, 3 Refills, Maintenance, 03/24/20 14:26:00 EDT, Tablet, [facility]/pharmacy #[id number], 160.02, cm, 11/22/19 13:52:00 EDT, Height, [...] 03/24/20 14:25:00 EDT, Route to Pharmacy Electronically, [facility]/pharmacy #207, 160.02, cm, 11/22/19 13:52:00 EDT, Height, 74, kg, 01/04/19 9:01:00 EDT,... Start Date: 03/24/20 Status: Orderedglipizide-metformin 5 mg-500 mg oral tablet 2 tablet, By Mouth, 2 times a day, DIABETES, # 60 tablet, 5 Refills, Maintenance, 03/24/20 14:25:00 EDT, Tablet, [facility]/pharmacy #[id number], 2 tablet By Mouth 2 times [...] tablet, 2 Refills, Maintenance, 03/24/20 14:22:00 EDT, [facility]/pharmacy #207, please cancel lisinopril, 1 tablet By Mouth Daily,Instr:NEW BLOOD PRESSURE MEDICATION, 160.02, cm, 11/22/19 13:52... Start Date: 03/24/20 Status: OrderedIncruse Ellipta 62.5 mcg/inh inhalation powder 1 each, Inhalation, Every 24 hours, doses should be taken at least 24 hours apart, # 30 each, 5 Refills, Maintenance, 03/24/20 14:20:00 EDT, Powder, [facility]/pharmacy #207, 160.02, cm, 11/22/19 13:52:00 EDT, Height, [...] Replace Required Details, Route to Pharmacy Electronically, [id number]... Start Date: 03/24/20 Status: OrderedSingulair 10 mg oral tablet 10 mg, 1, tablet, By Mouth, Daily in PM, ASTHMA, # 30 tablet, Refills 11, Tot. Refills 11, Maintenance, 03/24/20 14:19:00 EDT, Route to Pharmacy Electronically, [facility]/pharmacy #[id number], 160.02, cm, 11/21/2012:52:00 EDT, Height, 74, kg, 01/04/19 9:01:00 ED... Start Date: 03/24/20 Status: Ordered Problem List Condition Effective Dates Status Health Status Informant COPD with asthma(Confirmed) Active Type 2 Diabetes Mellitus with Active peripheral neuropathy(Confirmed) Family history of early CAD(Confirmed) Active Hypertension(Confirmed) Active Tobacco use(Confirmed) Active Diagnosis Diagnosis Type Effective Dates Health Status Clinical In formant Service UTI symptoms Discharge 06/22/20 Diagnosis Social History Social History Type Response Smoking Status Current every day smoker; To bacco user in household: Yes; Other: 2 packs a day; entered on: 01/03/17 Sex
--- OUTSIDE RECORDS SUMMARY | 2022-04-30 23:00 | XMS_ITS | Continuity of Care Document ---
:1970 Author Organization [facility] Address [address] [place] [address]- Care Team Providers Name Role Phone Medina Moss MD Primary Care Physician Encounter [facility] Date(s): 12/28/20 - 01/27/21 [facility] [address] [place] [address]- Allergies, Adverse Reactions, Alerts Substance Reaction Severity [...] tablet, 5 Refills, Maintenance, 11/13/20 9:29:00 EDT, [facility]/pharmacy #[id number], 160.02, cm, 11/22/19 13:52:00 EDT, Height, 74, kg, 01/04/19 9:01:00 EDT, Dry Weight Start Date: 11/13/20 Stop Date: 05/12/21 Status: Orderedatorvastatin 10 mg oral tablet 1 tablet = 10 mg, By Mouth, Daily, Cholesterol medication, # 30 tablet, 5 Refills, Maintenance, 11/13/20 9:29:00 EDT, [facility]/pharmacy #[id number], 160.02, cm, 11/22/19 13:52:00 EDT, Height, 74, kg, 01/04/19 9:01:00 EDT, Dry Weight Start Date: 11/13/20 Status: OrderedBydureon Pen 2 mg subcutaneous injection, extended release See Instructions, INJECT 2 MG BY SUBCUTANEOUS INFUSION EVERY 7 DAYS, # 4 Unknown, 5 Refills, 11/13/20 9:28:00 EDT, [facility]/pharmacy #[id number], 160.02, cm, 11/22/19 13:52:00 EDT, Height, 74, kg, 01/04/19 9:01:00 EDT, Dry Weight Start Date: 11/13/20 Status: Orderedcyclobenzaprine 5 mg oral tablet 1 tablet = 5 mg, By Mouth, 3 times a day, PRN Spasm, # 40 tablet, 3 Refills, Maintenance, 03/24/20 14:26:00 EDT, Tablet, [facility]pharmacy #[id number], 160.02, cm, 11/22/19 13:52:00 EDT, Height, 74, kg, 01/04/19 9:01:00 EDT, Dry Weight Start Date: 03/24/20 Status: Orderedfluconazole 150 mg oral tablet 1 tablet = 150 mg, By Mouth, Once, Repeat dose if still having symptoms in 72 hours, # 2 tablet, 0 Refills, Soft Stop, 11/13/20 9:32:00 EDT, Tablet, [facility]/pharmacy #[id number], Partial fill upon patient request if [...] 12/22/20 Status: Orderedgabapentin 300 mg oral capsule 600 mg, 2, capsule, By Mouth, Daily at bedtime, # 60 capsule, Refills 5, Tot. Refills 5, Maintenance, 11/13/20 9:29:00 EDT, Route to Pharmacy Electronically, [facility]/pharmacy #[id number], 160.02, cm, 11/22/19 13:52:00 EDT, Height, 74, kg, 01/04/19 9:01:00 EDT,... Start Date: 11/13/20 Status: Orderedglipizide-metformin 5 mg-500 mg oral tablet 2 tablet, By Mouth, 2 times a day, DIABETES, # 60 tablet, 5 Refills, Maintenance, 11/13/20 9:30:00 EDT, Tablet, [facility]/pharmacy #[id number], 2 tablet By Mouth 2 times [...] tablet, 5 Refills, Maintenance, 11/13/20 9:30:00 EDT, [facility]/pharmacy #207, please cancel lisinopril, 1 tablet By Mouth Daily,Instr:NEW BLOOD PRESSURE MEDICATION, 160.02, cm, 11/22/19 13:52:... Start Date: 11/13/20 Status: OrderedIncruse Ellipta 62.5 mcg/inh inhalation powder 1 each, Inhalation, Every 24 hours, doses should be taken at least 24 hours apart, # 30 each, 5 Refills, Maintenance, 11/13/20 9:30:00 EDT, Powder, [facility]/pharmacy #207, 160.02, cm, 11/22/19 13:52:00 EDT, Height, [...] 10/05/20 16:18:00 EDT, Route to Pharmacy Electronically, [id number], [facility]/pharmacy #207, 160.02... Start Date: 10/05/20 Stop Date: 07/02/21 Status: OrderedSingulair 10 mg oral tablet 10 mg, 1, tablet, By Mouth, Daily in PM, ASTHMA, # 30 tablet, Refills 5, Tot. Refills 5, Maintenance, 11/13/20 9:29:00 EDT, Route to Pharmacy Electronically, [facility]/pharmacy #207, 160.02, cm, 11/22/19 13:52:00 EDT, Height, [...]
--- OUTSIDE RECORDS SUMMARY | 2022-04-30 23:00 | XMS_ITS | Continuity of Care Document ---
:1970 Author Organization [facility] Address [address] [place] [address]- Care Team Providers Name Role Phone Genevieve MORA, Danica Primary Care Physician Encounter [facility] Date(s): 11/01/21 - 12/01/21 [facility] [address] [place], [place] [address] Allergies, Adverse Reactions, Alerts Substance Reaction [...] 7:52:00 EDT, Route to Pharmacy Electronically, [facility]/pharmacy #[id number], Partial fill upon patient request if the prescription is for a schedule II opioid drug.... Start Date: 08/30/21 Status: OrderedAspirin Enteric Coated 81 mg oral delayed release tablet 1 tablet = 81 mg, By Mouth, Daily, # 30 tablet, 5 Refills, Maintenance, 08/30/21 7:52:00 EDT, [facility]/pharmacy #[id number], 160.02, cm, 08/26/21 10:47:00 EDT, Height Start Date: 08/30/21 Stop Date: 02/26/22 Status: Orderedatorvastatin 10 mg oral tablet 1 tablet = 10 mg, By Mouth, Daily, Cholesterol medication, # 30 tablet, 2 Refills, Maintenance, 08/30/21 7:52:00 EDT, [facility]/pharmacy #[id number], 160.02, cm, 08/26/21 10:47:00 EDT, [...] 11:08:00 EST, Route to Pharmacy Electronically, [facility]/pharmacy #[id number], 160.02, cm, 11/22/19 13:52:00 EDT, Height Start Date: 07/30/21 Status: Orderedglipizide-metformin 5 mg-500 mg oral tablet 2 tablet, By Mouth, 2 times a day, DIABETES, # 60 tablet, 2 Refills, Maintenance, 08/30/21 7:52:00 EDT, Tablet, [facility]/pharmacy #[id number], 2 tablet By Mouth 2 [...] 2 Refills, Maintenance, 08/30/21 7:52:00 EDT, [facility]/pharmacy #207, please cancel lisinopril, 1 tablet By Mouth Daily,Instr:NEW BLOOD PRESSURE MEDICATION, 160.02, cm, 08/26/21 10:47:... Start Date: 08/30/21 Status: OrderedIncruse Ellipta 62.5 mcg/inh inhalation powder 1 each, Inhalation, Every 24 hours, doses should be taken at least 24 hours apart, # 30 each, 2 Refills, Maintenance, 08/30/21 7:52:00 EDT, Powder, [facility]/pharmacy #[id number], 160.02, cm, 08/26/21 10:47:00 EDT, Height Start Date: 08/30/21 Status: OrderedLantus Solostar Pen 100 units/mL subcutaneous solution = 10 units, Subcutaneous Injection, Daily at bedtime, # 15 mL, 1 Refills, Maintenance, 09/20/21 8:37:00 EDT, Solution, [facility]/pharmacy #[id number], Partial fill upon patient request if the prescription is for aschedule II opioid drug., 160.02, cm, 09/17/21 8:... Start Date: 09/20/21 Status: OrderedNebulizer mask and tubing Nebulizer mask and tubing, See Instructions, # 1 each, Refills 0, Tot. Refills 0, Maintenance, Dx: Asthma J44.9. To be used with albuterol, 12/17/19 10:33:00 EDT, Compound Start Date: 12/17/19 Status: OrderedPen Sewell, 31 G x 5 mm BD Ultra [...] 7:52:00 EDT, Route to Pharmacy Electronically, [facility]/pharmacy #[id number], 160.02, cm, 08/26/21 10:47:00 EDT, [...]
--- OUTSIDE RECORDS SUMMARY | 2022-04-30 23:00 | XMS_ITS | Continuity of Care Document ---
:1970 Author Organization [facility] Address [address] [address]- Care Team Providers Name Role Phone Genevieve MORA, Danica Primary Care Physician [place] [facility] [place]s): 12/18/21 - 04/17/22 [facility] [address] [place] [id number] Attending Physician: Keny Lord MD Admitting Physician: Keny Lord MD Referring Physician: Danica Vallejo NP Allergies, Adverse Reactions, [...] 1 each, 2 Refills,Maintenance, 03/14/22 9:19:00 EDT, [facility]/pharmacy #[id number], 2 puffs Inhalation 2 times [...] 02/11/22 17:35:00 EDT, Route to Pharmacy Electronically, [facility]/pharmacy #[id number], Partial fill upon patient request ifthe prescription is for a schedule II opioid drug... Start Date: 02/11/22 Status: OrderedAspirin Enteric Coated 81 mg oral delayed release tablet 1 tablet = 81 mg, By Mouth, Daily, # 30 tablet, 5 Refills, Maintenance, 02/11/22 17:36:00 EDT, [facility]/pharmacy #[id number], 160.02, cm, 02/07/22 10:35:00 EDT, Height Start Date: 02/11/22 Stop Date: 08/10/22 Status: Orderedatorvastatin 80 mg oral tablet 1 tablet = 80 mg, By Mouth, Daily at bedtime, # 30 tablet, 0 Refills, Maintenance, 03/28/22 14:31:00EDT, Tablet, [facility]/pharmacy #[id number], Partial fill upon patient [...] 02/11/22 17:35:00 EDT, Route to Pharmacy Electronically, [facility]/pharmacy #[id number], 160.02, cm, 02/07/22 10:35:00 EDT, Height Start Date: 02/11/22 Status: Orderedglipizide-metformin 5 mg-500 mg oral tablet 2 tablet, By Mouth, 2 times a day, DIABETES, # 120 tablet, 2 Refills, Maintenance, 02/11/22 17:35:00EDT, Tablet, [facility]/pharmacy #[id number], 2 tablet By Mouth 2 [...] 2 Refills, Maintenance, 02/11/22 17:35:00 EDT, Powder, [facility]/pharmacy #[id number], 160.02, cm, 02/07/22 10:35:00 EDT, Height Start Date: 02/11/22 Status: OrderedLantus Solostar Pen 100 units/mL subcutaneous solution = 20 units, Subcutaneous Injection, Daily at bedtime, Dose increase, # 15 mL, 1 Refills, Maintenance, 02/11/22 17:36:00 EDT, Solution, [facility]/pharmacy #207, Partial fill upon patient request if the prescription is for a schedule II opioid drug., 160.02,... Start Date: 02/11/22 Status: OrderedLasix 40 mg oral tablet 40 mg, 1, tablet, By Mouth, Daily, # 30 tablet, Refills 0, Tot. Refills 0, Maintenance, 03/28/22 14:06:00 EDT, Route to Pharmacy Electronically, [facility]/pharmacy #[id number], Partial fill upon patient [...] 03/28/22 14:06:00 EDT, Route to Pharmacy Electronically, [facility]/pharmacy #[id number], Partial fill upon patient requestif the prescription is for a schedule II opioid d... Start Date: 03/28/22 Status: Orderedmontelukast 10 mg oral tablet 1, tablet, By Mouth, Daily in PM, Disregard previous script, # 30 tablet, Refills 1, Tot. Refills 1,01/31/22 10:36:00 EDT, Route to Pharmacy Electronically, [facility]/pharmacy #[id number], 160.02, cm, 12/28/21 11:08:00 EDT, Height Start Date: 01/31/22 Status: OrderedNebulizer mask and tubing Nebulizer mask and tubing, See Instructions, # 1 each, Refills 0, Tot. Refills 0, Maintenance, Dx: Asthma J44.9. To be used with albuterol, 12/17/19 10:33:00 EDT, Compound Start Date: 12/17/19 Status: OrderedPen Dumont, 31 G x 5 mm BD Ultra [...] 03/28/22 14:05:00 EDT, Route to Pharmacy Electronically, [facility]/pharmacy #[id number], Partial fill upon patient request ifthe prescription is for a schedule II opioid drug... Start Date: 03/28/22 Status: OrderedProAir HFA 90 mcg/inh inhalation aerosol with adapter 2, puffs, Inhalation, Every 4 hours, PRN, for 90 days, # 3 each, Refills 0, Tot. Refills 0, Physician Stop 05/02/22 16:36:00 EST, 02/01/22 16:36:00 EDT, Route to Pharmacy Electronically, [id number], [facility]/pharmacy #[id number], 160.02... Start Date: 02/01/22 Stop Date: 05/02/22 Status: OrderedToprol XL 25 mg oral tablet, extended release 25 mg, 1, tablet, By Mouth, Daily, # 30 tablet, Refills 0, Tot. Refills 0, Maintenance, 03/28/22 14:07:00 EDT, Route to Pharmacy Electronically, [facility]/pharmacy #[id number], Partial fill upon patient [...] 12/28/16 Sex Patient Care team information PersonnelName: Genevieve WASTEWATER SUPERVISOR, Danica Address: Address: [address], [place] [address]
--- OUTSIDE RECORDS SUMMARY | 2022-04-30 23:00 | XMS_ITS | Continuity of Care Document ---
:1970 Author Organization [facility] Address [address] [place] [address]- Care Team Providers Name Role Phone Medina Moss MD Primary Care Physician Encounter [facility] [place] Date(s): 04/29/19 - 06/19/19 [facility] [address] [place] [address]- [facility] Attending Physician: Medina Moss MD Allergies, [...] 4 hours, PRN, # 1 each, Refills 3, Tot. Refills 3, Maintenance, 04/29/1910:25:24 EST, Route to Pharmacy Electronically, [id number], [facility]/pharmacy #606 Start Date: 04/29/19 Status: OrderedAlcohol Wipes See [...] medication, # 30 tablet, 5 Refills, Maintenance, 01/08/19 17:12:49 EDT Start Date: 01/08/19 Status: OrderedBydureon Pen 2 mg subcutaneous injection, [...] day, NERVE PAIN, # 90 capsule, Refills 5, Tot. Refills 5, Maintenance, 01/04/19 9:32:25 EDT, Route to Pharmacy Electronically, [id number], [facility]/pharmacy #[id number], note dose increase Start Date: 01/04/19 Stop Date: 07/03/19 Status: Orderedglipizide-metformin 5 mg-500 mg oral tablet 2 tablet, By Mouth, 2 times a day, DIABETES, # 60 tablet, 5 Refills, Maintenance, 01/04/19 9:38:05 EDT, Tablet, 2 tablet By Mouth 2 times a day,Instr:DIABETES Start Date: 01/04/19 Status: Orderedlisinopril 10 mg oral tablet 10 mg, 1, tablet, By Mouth, Daily, BLOOD PRESSURE, # 30 tablet, Refills 5, Tot. Refills 5, Maintenance, 01/04/19 9:32:42 EDT, Route to Pharmacy Electronically, [id number], [facility]/pharmacy #[id number] Start Date: 01/04/19 Status: OrderedSingulair 10 mg oral tablet 10 mg, 1, tablet, By Mouth, Daily in PM, ASTHMA, # 30 tablet, Refills 5, Tot. Refills 5, Maintenance, 01/04/19 9:33:06 EDT, Route to Pharmacy Electronically, [id number], [facility]/pharmacy #[id number] Start Date: 01/04/19 Status: Ordered [...]
--- OUTSIDE RECORDS SUMMARY | 2022-04-30 23:00 | XMS_ITS | Continuity of Care Document ---
:1970 Author Organization [facility] Address [address] [place] [address]- Care Team Providers Name Role Phone Genevieve MORA, Danica Primary Care Physician Encounter [facility] [place] Date(s): 01/03/22 - 02/02/22 [facility] [address] [place], [place] [address] Allergies, Adverse Reactions, Alerts Substance Reaction [...] 08/30/21 7:52:00 EDT, [id number] Partial fill upon patient request if the prescription is for a schedule II opioid drug.... Start Date: 08/30/21 Status: OrderedAspirin Enteric Coated 81 mg oral delayed release tablet 1 tablet = 81 mg, By Mouth, Daily, # 30 tablet, 5 Refills, Maintenance, 08/30/21 7:52:00 EDT, [facility]/pharmacy #[id number], 160.02, cm, 08/26/21 10:47:00 EDT, Height Start Date: 08/30/21 Stop Date: 02/26/22 Status: Orderedatorvastatin 10 mg oral tablet 1 tablet = 10 mg, By Mouth, Daily, Cholesterol medication, # 30 tablet, 2 Refills, Maintenance, 08/30/21 7:52:00 EDT, [facility]/pharmacy #[id number], 160.02, cm, 08/26/21 10:47:00 EDT, [...] 01/27/22 17:47:00 EDT, Route to Pharmacy Electronically, [facility]/pharmacy #207, 160.02, cm, 12/28/21 11:08:00 EDT, Height Start Date: 01/27/22 Status: Orderedglipizide-metformin 5 mg-500 mg oral tablet 2 tablet, By Mouth, 2 times a day, DIABETES, # 60 tablet, 2 Refills, Maintenance, 08/30/21 7:52:00 EDT, Tablet, [facility]/pharmacy #207, 2 tablet By Mouth 2 [...] tablet, 2 Refills, Maintenance, 08/30/21 7:52:00 EDT, [facility]/pharmacy #[id number], please cancel lisinopril, [...] 2 Refills, Maintenance, 08/30/21 7:52:00 EDT, Powder, [facility]/pharmacy #207, 160.02, cm, 08/26/21 10:47:00 EDT, Height Start Date: 08/30/21 Status: OrderedLantus Solostar Pen 100 units/mL subcutaneous solution = 10 units, Subcutaneous Injection, Daily at bedtime, # 15 mL, 1 Refills, Maintenance, 09/20/21 8:37:00 EDT, Solution, [facility]/pharmacy #[id number], Partial fill upon patient request if the prescription is for aschedule II opioid drug., 160.02, cm, 09/17/21 8:... Start Date: 09/20/21 Status: Orderedmontelukast 10 mg oral tablet 1, tablet, By Mouth, Daily in PM, Disregard previous script, # 30 tablet, Refills 1, Tot. Refills 1,01/31/22 10:36:00 EDT, Route to Pharmacy Electronically, [facility]/pharmacy #[id number], 160.02, cm, 12/28/21 11:08:00 EDT, Height Start Date: 01/31/22 Status: OrderedNebulizer mask and tubing Nebulizer mask and tubing, See Instructions, # 1 each, Refills 0, Tot. Refills 0, Maintenance, Dx: Asthma J44.9. To be used with albuterol, 12/17/19 10:33:00 EDT, Compound Start Date: 12/17/19 Status: OrderedPen [place], 31 G x 5 mm BD Ultra [...] 02/01/22 16:36:00 EDT, Route to Pharmacy Electronically, [id number], [facility]/pharmacy #[id number], 160.02... Start Date: 02/01/22 Stop Date: [...]
--- OUTSIDE RECORDS SUMMARY | 2022-04-30 23:00 | XMS_ITS | Continuity of Care Document ---
:1970 Author Organization [facility] Address [address] [place] [address]- Care Team Providers Name Role Phone Genevieve MORA, Danica Primary Care Physician Encounter [facility] Date(s): 11/22/21 - 12/22/21 [facility] [address] [place], [place] [address] Allergies, Adverse Reactions, Alerts Substance Reaction Severity Status amoxicillin Active penicillin Hives Active Immunizations Given and Recorded Vaccine Date Status Refusal Reason influenza virus vaccine, inactivated 03/16/21 Recorded SARS-CoV-2 (COVID-19) mRNA-1273 vaccine 11/08/20 Recorded SARS-CoV-2 (COVID-19) mRNA-1273 vaccine 10/11/20 Recorded Medications Advair HFA 115 mcg / 21 mcg 2 puffs, Inhalation, 2 times a day, # 12 each, 5 Refills, [id number], 30, INHALE 2 PUFFS TWICE A DAY, 160.02, cm, 09/21/21 11:48:00 EDT, Height Start Date: 12/21/21 Status: Orderedalbuterol 0.083% inhalation solution 1 vials, Inhalation, Every 6 hours, PRN NEEDED FOR WHEEZING, # 75 mL, 5 Refills, [facility],160.02, cm, 09/21/21 11:48:00 EDT, Height Start Date: 12/21/21 Status: OrderedAlcohol Wipes See Instructions, # 1 box, Refills 6, Tot. Refills 6, Maintenance, Type 2 Diabetes Mellitus ICD 10 E11.9. Test 3 times daily., 01/04/19 9:49:06 EDT, Compound Start Date: 01/04/19 Status: OrderedamLODIPine 10 mg oral tablet 10 mg, 1, tablet, By Mouth, Daily, # 30 tablet, Refills 2, Tot. Refills 2, Maintenance, 08/30/21 7:52:00 EDT, Route to Pharmacy Electronically, [facility]/pharmacy #207, Partial fill upon patient request if the prescription is for a schedule II opioid drug.... Start Date: 08/30/21 Status: OrderedAspirin Enteric Coated 81 mg oral delayed release tablet 1 tablet = 81 mg, By Mouth, Daily, # 30 tablet, 5 Refills, Maintenance, 08/30/21 7:52:00 EDT, [facility]/pharmacy #[id number], 160.02, cm, 08/26/21 10:47:00 EDT, Height Start Date: 08/30/21 Stop Date: 02/26/22 Status: Orderedatorvastatin 10 mg oral tablet 1 tablet = 10 mg, By Mouth, Daily, Cholesterol medication, # 30 tablet, 2 Refills, Maintenance, 08/30/21 7:52:00 EDT, [facility]/pharmacy #[id number], 160.02, cm, 08/26/21 10:47:00 EDT, Height [...] 12/03/21 16:03:00 EDT, Route to Pharmacy Electronically, [facility]/pharmacy #[id number], 160.02, cm, 09/21/21 11:48:00 EDT, Height Start Date: 12/03/21 Status: Orderedglipizide-metformin 5 mg-500 mg oral tablet 2 tablet, By Mouth, 2 times a day, DIABETES, # 60 tablet, 2 Refills, Maintenance, 08/30/21 7:52:00 EDT, Tablet, [id number], 2 tablet By Mouth 2 times [...] Refills, Maintenance, 08/30/21 7:52:00 EDT, Powder, [facility], 160.02, cm, 08/26/21 10:47:00 EDT, Height [...] EDT, Compound Start Date: 12/17/19 Status: OrderedPen [place], 31 G x 5 mm BD Ultra [...] 7:52:00 EDT, Route to Pharmacy Electronically, [facility]/pharmacy #[id number], 160.02, cm, 08/26/21 10:47:00 EDT, Height [...]
--- OUTSIDE RECORDS SUMMARY | 2022-04-30 23:00 | XMS_ITS | Continuity of Care Document ---
:1970 Author Organization [facility] Address [address] [place] [address]- Care Team Providers Name Role Phone Medina Moss MD Primary Care Physician En[place] [facility] [place] Date(s): 01/01/20 - 01/31/20 [facility] [address] [place] [address]- [facility] Allergies, Adverse Reactions, Alerts Substance Reaction [...] 5 Refills, Maintenance, 10/29/19 13:46:00 EDT, [facility], 160.02, cm, 01/04/19 9:01:00 EDT, Height, 74, kg, 01/04/19 9:01:00 EDT, Dry Weight Start Date: 10/29/19 Stop Date: 04/26/20 Status: Orderedatorvastatin 10 mg oral tablet 1 tablet = 10 mg, By Mouth, Daily, Cholesterol medication, # 30 tablet, 5 Refills, Maintenance, 10/30/19 12:11:00 EDT, [facility]/pharmacy #[id number], 160.02, cm, 10/30/19 9:28:00 EDT, Height, 74, kg, 01/04/19 9:01:00 EDT, Dry Weight Start Date: 10/30/19 Status: OrderedBydureon Pen 2 mg subcutaneous injection, extended release See Instructions, INJECT 2 MG BY SUBCUTANEOUS INFUSION EVERY 7 DAYS, # 4 Unknown, 5 Refills, 01/09/20 10:59:00 EDT, [facility]/pharmacy #1, 160.02, cm, 11/22/19 13:52:00 EDT, Height, 74, kg, 01/04/19 9:01:00 EDT, Dry Weight Start Date: 01/09/20 Status: Orderedcyclobenzaprine 5 mg oral tablet 1 tablet = 5 mg, By Mouth, 3 times a day, PRN Spasm, # 40 tablet, 3 Refills, Maintenance, 10/30/19 12:12:00 EDT, Tablet, [facility]/pharmacy #[id number], 160.02, cm, 10/30/19 9:28:00 EDT, Height, [...] 10/30/19 12:12:00 EDT, Route to Pharmacy Electronically, [facility]/pharmacy #[id number], 160.02, cm, 10/30/19 9:28:00 EDT, Height, 74, kg, 01/04/19 9:01:00 EDT,... Start Date: 10/30/19 Status: Orderedglipizide-metformin 5 mg-500 mg oral tablet 2 tablet, By Mouth, 2 times a day, DIABETES, # 60 tablet, 5 Refills, Maintenance, 10/30/19 12:13:00 EDT, Tablet, [facility]/pharmacy #[id number], 2 tablet By Mouth 2 times a day,Instr:DIABETES, 160.02, cm, 209:28:00 EDT, Height, 74, kg, 01/04/19 9:01:00 EDT... Start Date: 10/30/19 Status: Orderedlisinopril 10 mg oral tablet 10 mg, 1, tablet, By Mouth, Daily, BLOOD PRESSURE, # 30 tablet, Refills 5, Tot. Refills 5, Maintenance, 10/30/19 12:13:00 EDT, Route to Pharmacy Electronically, [facility]/pharmacy #[id number], Appt required for further refills, 160.02, [...] Replace Required Details, Route to Pharmacy Electronically, [id number], [facility]... Start Date: 10/29/19 Status: OrderedSingulair 10 mg oral tablet 10 mg, 1, tablet, By Mouth, Daily in PM, ASTHMA, # 30 tablet, Refills 5, Tot. Refills 5, Maintenance, 10/30/19 12:07:00 EDT, Route to Pharmacy Electronically, [facility]/pharmacy #[id number], 160.02, cm, 10/30/19 9:28:00 EDT, Height, [...]
--- OUTSIDE RECORDS SUMMARY | 2022-04-30 23:00 | XMS_ITS | Continuity of Care Document ---
:1970 Author Organization [facility] Address [address] [place] [address]- Care Team Providers Name Role Phone Genevieve MORA, Danica Primary Care Physician En[place] [facility] [place] Date(s): 07/30/21 - 08/29/21 [facility] [address] [place], [place] [address] Allergies, Adverse Reactions, Alerts Substance Reaction [...] Refills, Soft Stop, 11/13/20 9:32:00 EDT, Tablet, [facility]/pharmacy #[id number], Partial fill upon patient [...] 07/30/21 11:08:00 EST, Route to Pharmacy Electronically, [facility]/pharmacy #207, 160.02, cm, 11/22/19 13:52:00 EDT, Height Start Date: 07/30/21 Status: Orderedglipizide-metformin 5 mg-500 mg oral tablet 2 tablet, By Mouth, 2 times a day, DIABETES, # 60 tablet, 5 Refills, Maintenance, 11/13/20 9:30:00 EDT, Tablet, [facility]/pharmacy #207, 2 tablet By Mouth [...] tablet, 5 Refills, Maintenance, 11/13/20 9:30:00 EDT, [facility]/pharmacy #[id number], please cancel lisinopril, 1 tablet By Mouth Daily,Instr:NEW BLOOD PRESSURE MEDICATION, 160.02, cm, 11/22/19 13:52:... Start Date: 11/13/20 Status: OrderedIncruse Ellipta 62.5 mcg/inh inhalation powder 1 each, Inhalation, Every 24 hours, doses should be taken at least 24 hours apart, # 30 each, 5 Refills, Maintenance, 11/13/20 9:30:00 EDT, Powder, [facility]/pharmacy #[id number], 160.02, cm, 11/22/19 13:52:00 [...] 11/13/20 9:29:00 EDT, Route to Pharmacy Electronically, [facility]/pharmacy #[id number], 160.02, cm, 11/22/19 13:52:00 EDT, Height, 74, kg, 01/04/19 9:01:00 EDT,... Start Date: 11/13/20 Status: OrderedtraMADol 50 mg oral tablet 1 tablet = 50 mg, By Mouth, Every 6 hours, PRN for pain, for 5 days, MassPat verified, # 20 tablet, 0 Refills, Acute 08/31/21 11:35:00 EDT, 08/26/21 11:35:00 EDT, Tablet, [facility]/pharmacy #[id number], Partial fill upon patient request if the prescription is for... Start Date: 08/26/21 Stop Date: 08/31/21 Status: Ordered Problem List Condition Effective Dates Status Health Status Informant COPD with asthma(Confirmed) Active Type 2 Diabetes Mellitus with Active peripheral neuropathy(Confirmed) Family history of early CAD(Confirmed) Active Hypertension(Confirmed) Active Obese class I(Confirmed) Active Tobacco use(Confirmed) Active Social History Social History Type Response Smoking Status Current every day smoker; To bacco user in household: Yes; Type: Cigarettes; Other: more than 5 a day; entered on: 12/28/16 Sex
--- OUTSIDE RECORDS SUMMARY | 2022-04-30 23:00 | XMS_ITS | Continuity of Care Document ---
:1970 Author Organization [facility] Address [address] [place] [address]- Care Team Providers Name Role Phone Genevieve MORA, Danica Primary Care Physician En[place] [facility] [place] Date(s): 08/17/21 - 09/18/21 [facility] [address] [place] [address]- Attending Physician: Danica Vallejo NP Allergies, Adverse [...] EDT, Route to Pharmacy Electronically, [facility]/pharmacy #[id number], Partial fill upon patient request if the prescription is for a schedule II opioid drug.... Start Date: 08/30/21 Status: OrderedAspirin Enteric Coated 81 mg oral delayed release tablet 1 tablet = 81 mg, By Mouth, Daily, # 30 tablet, 5 Refills, Maintenance, 08/30/21 7:52:00 EDT, [facility]/pharmacy #[id number], 160.02, cm, 08/26/21 10:47:00 EDT, Height Start Date: 08/30/21 Stop Date: 02/26/22 Status: Orderedatorvastatin 10 mg oral tablet 1 tablet = 10 mg, By Mouth, Daily, Cholesterol medication, # 30 tablet, 2 Refills, Maintenance, 08/30/21 7:52:00 EDT, [facility]/pharmacy #[id number], 160.02, cm, 08/26/21 10:47:00 EDT, Height [...] 07/30/21 11:08:00 EST, Route to Pharmacy Electronically, [facility]/pharmacy #[id number], 160.02, cm, 11/22/19 13:52:00 EDT, Height Start Date: 07/30/21 Status: Orderedglipizide-metformin 5 mg-500 mg oral tablet 2 tablet, By Mouth, 2 times a day, DIABETES, # 60 tablet, 2 Refills, Maintenance, 08/30/21 7:52:00 EDT, Tablet, [facility]/pharmacy #207, 2 tablet By Mouth 2 times [...] tablet, 2 Refills, Maintenance, 08/30/21 7:52:00 EDT, [facility]/pharmacy #207, please cancel lisinopril, 1 tablet By Mouth Daily,Instr:NEW BLOOD PRESSURE MEDICATION, 160.02, cm, 08/26/21 10:47:... Start Date: 08/30/21 Status: OrderedIncruse Ellipta 62.5 mcg/inh inhalation powder 1 each, Inhalation, Every 24 hours, doses should be taken at least 24 hours apart, # 30 each, 2 Refills, Maintenance, 08/30/21 7:52:00 EDT, Powder, [facility]/pharmacy #207, 160.02, cm, 08/26/21 10:47:00 EDT, Height Start Date: 08/30/21 Status: OrderedNebulizer mask and tubing Nebulizer mask [...] EDT, Route to Pharmacy Electronically, [facility]/pharmacy #[id number], 160.02, cm, 08/26/21 10:47:00 EDT, Height [...]
--- OUTSIDE RECORDS SUMMARY | 2022-04-30 23:01 | XMS_ITS | Continuity of Care Document ---
:1970 Author Organization [facility] Address [address] [place] [address]- Care Team Providers Name Role Phone Medina Moss MD Primary Care Physician Encounter [facility] [place] Date(s): 10/30/19 - 11/06/19 [facility] [address] [place] [address]- [facility] Attending Physician: Mdeina Moss MD Allergies, Adverse Reactions, Alerts Substance [...] tablet, 5 Refills, Maintenance, 10/30/19 12:11:00 EDT, [id number], 160.02, cm, 10/30/19 9:28:00 EDT, Height, 74, kg, 01/04/19 9:01:00 EDT, Dry Weight Start Date: 10/30/19 Status: OrderedBydureon Pen 2 mg subcutaneous injection, extended release See Instructions, INJECT 2 MG BY SUBCUTANEOUS INFUSION EVERY 7 DAYS, # 4 Unknown, 5 Refills, Maintenance, [id number], 160.02, cm, 10/30/19 9:28:00 EDT, Height, 74, kg, 01/04/19 9:01:00 EDT, Dry Weight Start Date: 10/30/19 Status: Orderedclindamycin 300 mg oral capsule 1 capsule = 300 mg, By Mouth, Every 8 hours, for 10 days, # 30 capsule, 0 Refills, Acute 11/09/19 12:06:00 EDT, 10/30/19 12:06:00 EDT, Capsule, [facility]/pharmacy #[id number], 160.02, cm, 10/30/19 9:28:00 EDT, Height, 74, kg, 01/04/19 9:01:00 EDT, Dry Weight Start Date: 10/30/19 Stop Date: 11/09/19 Status: Orderedcyclobenzaprine 5 mg oral tablet 1 tablet = 5 mg, By Mouth, 3 times a day, PRN Spasm, # 40 tablet, 3 Refills, Maintenance, 10/30/19 12:12:00 EDT, Tablet, [facility]/pharmacy #[id number], 160.02, cm, 10/30/19 9:28:00 [...] 10/30/19 12:12:00 EDT, Route to Pharmacy Electronically, [facility]/pharmacy #[id number], 160.02, cm, 10/30/19 9:28:00 EDT, Height, 74, kg, 01/04/19 9:01:00 EDT,... Start Date: 10/30/19 Status: Orderedglipizide-metformin 5 mg-500 mg oral tablet 2 tablet, By Mouth, 2 times a day, DIABETES, # 60 tablet, 5 Refills, Maintenance, 10/30/19 12:13:00 EDT, Tablet, [facility]/pharmacy #[id number], 2 tablet By Mouth 2 times a day,Instr:DIABETES, 160.02, cm, :28:00 EDT, Height, 74, kg, 01/04/19 9:01:00 EDT... Start Date: 10/30/19 Status: Orderedlisinopril 10 mg oral tablet 10 mg, 1, tablet, By Mouth, Daily, BLOOD PRESSURE, # 30 tablet, Refills 5, Tot. Refills 5, Maintenance, 10/30/19 12:13:00 EDT, Route to Pharmacy Electronically, [facility]/pharmacy #[id number], Appt required for further [...] Replace Required Details, Route to Pharmacy Electronically, [id number], [facility]... Start Date: 10/29/19 Status: OrderedSingulair 10 mg oral tablet 10 mg, 1, tablet, By Mouth, Daily in PM, ASTHMA, # 30 tablet, Refills 5, Tot. Refills 5, Maintenance, 10/30/19 12:07:00 EDT, Route to Pharmacy Electronically, [id number], 160.02, cm, 10/30/19 9:28:00 EDT, Height, 74, kg, 01/04/19 9:01:00 EDT,... Start Date: 10/30/19 Status: Ordered Problem List Condition Effective Dates Status Health Status Informant COPD with asthma(Confirmed) Active Type 2 Diabetes Mellitus with Active peripheral neuropathy(Confirmed) Family history of early CAD(Confirmed) Active Hypertension(Confirmed) Active Tobacco use(Confirmed) Active Vital Signs Most recent to oldest [Reference Range]: 1 Height 160.02 cm (10/30/19 9:28 AM) Social History Social History Type Response Smoking Status Current every day smoker; To bacco user in household: Yes; Other: 2 packs a day; entered on: 01/03/17 Sex
--- OUTSIDE RECORDS SUMMARY | 2022-04-30 23:01 | XMS_ITS | Continuity of Care Document ---
:1970 Author Organization [facility] Address [address] [place] [address]- Care Team Providers Name Role Phone Genevieve MORA, Danica Primary Care Physician [place] [facility] [place]21 - 01/28/22 [facility] [address] [place], [place] [address] Allergies, Adverse Reactions, Alerts Substance [...] 08/30/21 7:52:00 EDT, [id number] fill upon patient request if the prescription is for a schedule II opioid drug.... Start Date: 08/30/21 Status: OrderedAspirin Enteric Coated 81 mg oral delayed release tablet 1 tablet = 81 mg, By Mouth, Daily, # 30 tablet, 5 Refills, Maintenance, 08/30/21 7:52:00 EDT, [facility]/pharmacy #[id number], 160.02, cm, 08/26/21 10:47:00 EDT, Height Start Date: 08/30/21 Stop Date: 02/26/22 Status: Orderedatorvastatin 10 mg oral tablet 1 tablet = 10 mg, By Mouth, Daily, Cholesterol medication, # 30 tablet, 2 Refills, Maintenance, 08/30/21 7:52:00 EDT, [facility]/pharmacy #[id number], 160.02, cm, 08/26/21 10:47:00 EDT, Height [...] 01/27/22 17:47:00 EDT, Route to Pharmacy Electronically, [facility]/pharmacy #207, 160.02, cm, 12/28/21 11:08:00 EDT, Height Start Date: 01/27/22 Status: Orderedglipizide-metformin 5 mg-500 mg oral tablet 2 tablet, By Mouth, 2 times a day, DIABETES, # 60 tablet, 2 Refills, Maintenance, 08/30/21 7:52:00 EDT, Tablet, [facility]/pharmacy #207, 2 tablet By Mouth 2 times [...] 2 Refills, Maintenance, 08/30/21 7:52:00 EDT, [facility]/pharmacy #207, please cancel lisinopril, 1 tablet By [...] 2 Refills, Maintenance, 08/30/21 7:52:00 EDT, Powder, [facility]/pharmacy #207, 160.02, cm, 08/26/21 10:47:00 EDT, Height Start Date: 08/30/21 Status: OrderedLantus Solostar Pen 100 units/mL subcutaneous solution = 10 units, Subcutaneous Injection, Daily at bedtime, # 15 mL, 1 Refills, Maintenance, 09/20/21 8:37:00 EDT, Solution, [facility]/pharmacy #[id number], Partial fill upon patient request if the prescription is for aschedule II opioid drug., 160.02, cm, 09/17/21 8:... Start Date: 09/20/21 Status: Orderedmontelukast 10 mg oral tablet 1, tablet, By Mouth, Daily in PM, Disregard previous script, # 30 tablet, Refills 1, Tot. Refills 1,01/03/22 10:14:00 EDT, Route to Pharmacy Electronically, [facility]/pharmacy #[id number], 160.02, cm, 12/28/21 11:08:00 EDT, Height Start Date: 01/03/22 Status: OrderedNebulizer mask and tubing Nebulizer mask and tubing, See Instructions, # 1 each, Refills 0, Tot. Refills 0, Maintenance, Dx: Asthma J44.9. To be used with albuterol, 12/17/19 10:33:00 EDT, Compound Start Date: 12/17/19 Status: OrderedPen [place], 31 G x 5 mm BD Ultra [...]
--- OUTSIDE RECORDS SUMMARY | 2022-04-30 23:01 | XMS_ITS | Continuity of Care Document ---
:1970 Author Organization [facility] Address [address] [place] [address]- Care Team Providers Name Role Phone Genevieve MORA, Danica Primary Care Physician [place] [facility] [place]s): 07/30/21 - 08/29/21 [facility] [address] [place], [place] [address] Allergies, Adverse Reactions, Alerts Substance Reaction [...] Soft Stop, 11/13/20 9:32:00 EDT, Tablet, [facility]/pharmacy #[id number], Partial fill upon patient request [...] 11:08:00 EST, Route to Pharmacy Electronically, [facility]/pharmacy #207, 160.02, cm, 11/22/19 13:52:00 EDT, Height Start Date: 07/30/21 Status: Orderedglipizide-metformin 5 mg-500 mg oral tablet 2 tablet, By Mouth, 2 times a day, DIABETES, # 60 tablet, 5 Refills, Maintenance, 11/13/20 9:30:00 EDT, Tablet, [facility]/pharmacy #207, 2 tablet By Mouth 2 [...] 5 Refills, Maintenance, 11/13/20 9:30:00 EDT, [facility]/pharmacy #[id number], please cancel lisinopril, 1 tablet By Mouth Daily,Instr:NEW BLOOD PRESSURE MEDICATION, 160.02, cm, 11/22/19 13:52:... Start Date: 11/13/20 Status: OrderedIncruse Ellipta 62.5 mcg/inh inhalation powder 1 each, Inhalation, Every 24 hours, doses should be taken at least 24 hours apart, # 30 each, 5 Refills, Maintenance, 11/13/20 9:30:00 EDT, Powder, [facility]/pharmacy #[id number], 160.02, cm, 11/22/19 13:52:00 EDT, [...] 9:29:00 EDT, Route to Pharmacy Electronically, [facility]/pharmacy #[id number], 160.02, cm, 11/22/19 13:52:00 EDT, Height, 74, kg, 01/04/19 9:01:00 EDT,... Start Date: 11/13/20 Status: OrderedtraMADol 50 mg oral tablet 1 tablet = 50 mg, By Mouth, Every 6 hours, PRN for pain, for 5 days, MassPat verified, # 20 tablet, 0 Refills, Acute 08/31/21 11:35:00 EDT, 08/26/21 11:35:00 EDT, Tablet, [facility]/pharmacy #[id number], Partial fill upon patient request [...]
--- OUTSIDE RECORDS SUMMARY | 2022-04-30 23:01 | XMS_ITS | Continuity of Care Document ---
:1970 Author Organization [facility] Address [address] [place] [address]- Care Team Providers Name Role Phone Genevieve MORA, Danica Primary Care Physician Encounter [place] Date(s): 06/18/21 - 07/18/21 [facility] [address] [place], [place] [address] Attending Physician: Admpaul, Mitul Admitting Physician: [...] 5 Refills, Maintenance, 11/13/20 9:29:00 EDT, [facility], 160.02, cm, 11/22/19 13:52:00 EDT, Height, [...] Maintenance, 03/24/20 14:26:00 EDT, Tablet, [facility]/pharmacy #[id number], 160.02, cm, 11/22/19 13:52:00 EDT, Height, 74, kg, 01/04/19 9:01:00 EDT, Dry Weight Start Date: 03/24/20 Status: Orderedfluconazole 150 mg oral tablet 1 tablet = 150 mg, By Mouth, Once, Repeat dose if still having symptoms in 72 hours, # 2 tablet, 0 Refills, Soft Stop, 11/13/20 9:32:00 EDT, Tablet, [facility]/pharmacy #207, Partial fill upon patient [...] capsule, Refills 0, Route to Pharmacy Electronically, [facility] [id number], 160.02, cm, 11/22/19 13:52:00 EDT, Height Start [...] 11/13/20 9:30:00 EDT, Powder, [facility]/pharmacy #207, 160.02, cm, 11/22/19 [...]
--- OUTSIDE RECORDS SUMMARY | 2022-04-30 23:01 | XMS_ITS | Continuity of Care Document ---
:1970 Author Organization [facility] Address [address] [place] [address]- Care Team Providers Name Role Phone Genevieve MORA, Danica Primary Care Physician Encounter [facility] Date(s): 02/15/22 - 03/17/22 [facility] [address] [place], [place] [address] Allergies, Adverse Reactions, Alerts Substance Reaction Severity [...] 1 each, 2 Refills,Maintenance, 03/14/22 9:19:00 EDT, [facility]/pharmacy #[id number], 2 puffs Inhalation 2 times a [...] 02/11/22 17:35:00 EDT, [id number] Partial fill upon patient request ifthe prescription is for a schedule II opioid drug... Start Date: 02/11/22 Status: OrderedAspirin Enteric Coated 81 mg oral delayed release tablet 1 tablet = 81 mg, By Mouth, Daily, # 30 tablet, 5 Refills, Maintenance, 02/11/22 17:36:00 EDT, [facility]/pharmacy #[id number], 160.02, cm, 02/07/22 10:35:00 EDT, Height Start Date: 02/11/22 Stop Date: 08/10/22 Status: Orderedatorvastatin 10 mg oral tablet 1 tablet = 10 mg, By Mouth, Daily, Cholesterol medication, # 30 tablet, 2 Refills, Maintenance, 02/11/22 17:35:00 EDT, [facility]/pharmacy #[id number], 160.02, cm, 02/07/22 10:35:00 EDT, [...] 17:35:00 EDT, Route to Pharmacy Electronically, [facility]/pharmacy #207, 160.02, cm, 02/07/22 10:35:00 EDT, Height Start Date: 02/11/22 Status: Orderedglipizide-metformin 5 mg-500 mg oral tablet 2 tablet, By Mouth, 2 times a day, DIABETES, # 120 tablet, 2 Refills, Maintenance, 02/11/22 17:35:00EDT, Tablet, [facility]/pharmacy #207, 2 tablet By Mouth 2 [...] 2 Refills, Maintenance, 02/11/22 17:35:00 EDT, [facility]/pharmacy #207, please cancel lisinopril, 1 tablet [...] Refills, Maintenance, 02/11/22 17:35:00 EDT, Powder, [facility]/pharmacy #[id number], 160.02, cm, 02/07/22 10:35:00 EDT, Height Start Date: 02/11/22 Status: OrderedLantus Solostar Pen 100 units/mL subcutaneous solution = 20 units, Subcutaneous Injection, Daily at bedtime, Dose increase, # 15 mL, 1 Refills, Maintenance, 02/11/22 17:36:00 EDT, Solution, [facility]/pharmacy #[id number], Partial fill upon patient request [...] 10:36:00 EDT, Route to Pharmacy Electronically, [facility]/pharmacy #[id number], 160.02, cm, 12/28/21 11:08:00 EDT, Height Start Date: 01/31/22 Status: OrderedNebulizer mask and tubing Nebulizer mask and tubing, See Instructions, # 1 each, Refills 0, Tot. Refills 0, Maintenance, Dx: Asthma J44.9. To be used with albuterol, 12/17/19 10:33:00 EDT, Compound Start Date: 12/17/19 Status: OrderedPen [place], 31 G x 5 mm BD Ultra [...] 02/01/22 16:36:00 EDT, Route to Pharmacy Electronically, [id number], [id number], 160.02... Start Date: 02/01/22 Stop [...] information PersonnelName: Danica Vallejo NP Address: Address: [address] [place] [address]
--- OUTSIDE RECORDS SUMMARY | 2022-04-30 23:01 | XMS_ITS | Continuity of Care Document ---
:1970 Author Organization [facility] Address [address] [place] [address]- Care Team Providers Name Role Phone Genevieve MORA, Danica Primary Care Physician Encounter [facility] Date(s): 08/17/21 - 09/16/21 [facility] [address] [place], [place] [address] Allergies, Adverse Reactions, Alerts Substance [...] 08/30/21 7:52:00 EDT, [facility]/pharmacy #[id number], 160.02, cm, 08/26/21 10:47:00 EDT, Height Start Date: 08/30/21 Stop Date: 02/26/22 Status: Orderedatorvastatin 10 mg oral tablet 1 tablet = 10 mg, By Mouth, Daily, Cholesterol medication, # 30 tablet, 2 Refills, Maintenance, 08/30/21 7:52:00 EDT, [facility]/pharmacy #[id number], 160.02, cm, [...] [facility]/pharmacy #[id number], 160.02, cm, 11/22/19 13:52:00 EDT, Height Start Date: 07/30/21 Status: Orderedglipizide-metformin 5 mg-500 mg oral tablet 2 tablet, By Mouth, 2 times a day, DIABETES, # 60 tablet, 2 Refills, Maintenance, 08/30/21 7:52:00 EDT, Tablet, [facility]/pharmacy #207, 2 tablet By Mouth [...] 08/30/21 7:52:00 EDT, [facility]/pharmacy #[id number], please cancel lisinopril, 1 tablet By Mouth Daily,Instr:NEW BLOOD PRESSURE MEDICATION, 160.02, cm, 08/26/21 10:47:... Start Date: 08/30/21 Status: OrderedIncruse Ellipta 62.5 mcg/inh inhalation powder 1 each, Inhalation, Every 24 hours, doses should be taken at least 24 hours apart, # 30 each, 2 Refills, Maintenance, 08/30/21 7:52:00 EDT, Powder, [facility]/pharmacy #[id number], 160.02, cm, 08/26/21 10:47:00 EDT, Height [...] to Pharmacy Electronically, [facility]/pharmacy #[id number], 160.02, cm, 08/26/21 10:47:00 EDT, Height [...]
--- OUTSIDE RECORDS SUMMARY | 2022-04-30 23:01 | XMS_ITS | Continuity of Care Document ---
:1970 Author Organization [facility] Address [address] [place] [address]- Care Team Providers Name Role Phone Genevieve MORA, Danica Primary Care Physician [place] [facility] Date[place]s): 08/26/21 - 09/25/21 [facility] [address] [place], [place] [address] Allergies, Adverse Reactions, Alerts Substance Reaction [...] EDT, Route to Pharmacy Electronically, [facility]/pharmacy #[id number], Partial fill upon patient request if the prescription is for a schedule II opioid drug.... Start Date: 08/30/21 Status: OrderedAspirin Enteric Coated 81 mg oral delayed release tablet 1 tablet = 81 mg, By Mouth, Daily, # 30 tablet, 5 Refills, Maintenance, 08/30/21 7:52:00 EDT, [facility]/pharmacy #[id number], 160.02, cm, 08/26/21 10:47:00 EDT, Height Start Date: 08/30/21 Stop Date: 02/26/22 Status: Orderedatorvastatin 10 mg oral tablet 1 tablet = 10 mg, By Mouth, Daily, Cholesterol medication, # 30 tablet, 2 Refills, Maintenance, 08/30/21 7:52:00 EDT, [facility]/pharmacy #[id number], 160.02, cm, 08/26/21 10:47:00 EDT, [...] EST, Route to Pharmacy Electronically, [facility]/pharmacy #[id number], 160.02, cm, 11/22/19 13:52:00 EDT, Height Start Date: 07/30/21 Status: Orderedglipizide-metformin 5 mg-500 mg oral tablet 2 tablet, By Mouth, 2 times a day, DIABETES, # 60 tablet, 2 Refills, Maintenance, 08/30/21 7:52:00 EDT, Tablet, [facility]/pharmacy #[id number], 2 tablet By Mouth 2 [...] Refills, Maintenance, 08/30/21 7:52:00 EDT, [facility]/pharmacy #207, please cancel lisinopril, 1 tablet By Mouth Daily,Instr:NEW BLOOD PRESSURE MEDICATION, 160.02, cm, 08/26/21 10:47:... Start Date: 08/30/21 Status: OrderedIncruse Ellipta 62.5 mcg/inh inhalation powder 1 each, Inhalation, Every 24 hours, doses should be taken at least 24 hours apart, # 30 each, 2 Refills, Maintenance, 08/30/21 7:52:00 EDT, Powder, [facility]/pharmacy #[id number], 160.02, cm, 08/26/21 10:47:00 EDT, Height Start Date: 08/30/21 Status: OrderedLantus Solostar Pen 100 units/mL subcutaneous solution = 10 units, Subcutaneous Injection, Daily at bedtime, # 15 mL, 1 Refills, Maintenance, 09/20/21 8:37:00 EDT, Solution, [facility]/pharmacy #[id number], Partial fill upon patient request if the prescription is for aschedule II opioid drug., 160.02, cm, 09/17/21 8:... Start Date: 09/20/21 Status: OrderedNebulizer mask and tubing Nebulizer mask and tubing, See Instructions, # 1 each, Refills 0, Tot. Refills 0, Maintenance, Dx: Asthma J44.9. To be used with albuterol, 12/17/19 10:33:00 EDT, Compound Start Date: 12/17/19 Status: OrderedPen [place], 31 G x 5 mm BD Ultra [...] EDT, Route to Pharmacy Electronically, [facility]/pharmacy #[id number], 160.02, cm, 08/26/21 10:47:00 EDT, [...]
--- OUTSIDE RECORDS SUMMARY | 2022-04-30 23:01 | XMS_ITS | Continuity of Care Document ---
:1970 Author Organization [facility] Address [address] [place] [address]- Care Team Providers Name Role Phone Genevieve MORA, Danica Primary Care Physician Encounter [facility] Date(s): 03/25/22 - 04/27/22 [facility] [address] [place], [place] [address] Attending Physician: Danica Vallejo NP Allergies, Adverse [...] 1 each, 2 Refills,Maintenance, 03/14/22 9:19:00 EDT, [facility]/pharmacy #[id number], 2 puffs Inhalation 2 times a [...] 02/11/22 17:35:00 EDT, Route to [facility], [id number], Partial fill upon patient request ifthe prescription is for a schedule II opioid drug... Start Date: 02/11/22 Status: OrderedAspirin Enteric Coated 81 mg oral delayed release tablet 1 tablet = 81 mg, By Mouth, Daily, # 30 tablet, 5 Refills, Maintenance, 02/11/22 17:36:00 EDT, [facility]/pharmacy #[id number], 160.02, cm, 02/07/22 10:35:00 EDT, Height Start Date: 02/11/22 Stop Date: 08/10/22 Status: Orderedatorvastatin 80 mg oral tablet 1 tablet = 80 mg, By Mouth, Daily at bedtime, # 30 tablet, 0 Refills, Maintenance, 03/28/22 14:31:00EDT, Tablet, [facility]/pharmacy #[id number], Partial fill upon patient request if [...] 02/11/22 17:35:00 EDT, Route to Pharmacy Electronically, [facility]/pharmacy #[id number], 160.02, cm, 02/07/22 10:35:00 EDT, Height Start Date: 02/11/22 Status: Orderedglipizide-metformin 5 mg-500 mg oral tablet 2 tablet, By Mouth, 2 times a day, DIABETES, # 120 tablet, 2 Refills, Maintenance, 02/11/22 17:35:00EDT, Tablet, [facility]/pharmacy #[id number], 2 [...] 2 Refills, Maintenance, 02/11/22 17:35:00 EDT, Powder, [facility]/pharmacy #[id number], 160.02, cm, 02/07/22 10:35:00 EDT, Height Start Date: 02/11/22 Status: OrderedLantus Solostar Pen 100 units/mL subcutaneous solution = 20 units, Subcutaneous Injection, Daily at bedtime, Dose increase, # 15 mL, 1 Refills, Maintenance, 02/11/22 17:36:00 EDT, Solution, [facility]/pharmacy #207, Partial fill upon patient request if the prescription is for a schedule II opioid drug., 160.02,... Start Date: 02/11/22 Status: OrderedLasix 40 mg oral tablet 40 mg, 1, tablet, By Mouth, Daily, # 30 tablet, Refills 0, Tot. Refills 0, Maintenance, 03/28/22 14:06:00 EDT, Route to Pharmacy Electronically, [facility]/pharmacy #[id number], Partial fill upon patient request ifthe [...] 03/28/22 14:06:00 EDT, Route to Pharmacy Electronically, [facility]/pharmacy #[id number], Partial fill upon patient requestif the prescription is for a schedule II opioid d... Start Date: 03/28/22 Status: Orderedmontelukast 10 mg oral tablet 1, tablet, By Mouth, Daily in PM, Disregard previous script, # 30 tablet, Refills 1, Tot. Refills 1,01/31/22 10:36:00 EDT, Route to Pharmacy Electronically, [facility]/pharmacy #[id number], 160.02, cm, 12/28/21 11:08:00 EDT, Height Start Date: 01/31/22 Status: OrderedNebulizer mask and tubing Nebulizer mask and tubing, See Instructions, # 1 each, Refills 0, Tot. Refills 0, Maintenance, Dx: Asthma J44.9. To be used with albuterol, 12/17/19 10:33:00 EDT, Compound Start Date: 12/17/19 Status: OrderedPen [place], 31 G x 5 mm BD Ultra [...] 03/28/22 14:05:00 EDT, Route to Pharmacy Electronically, [facility]/pharmacy #[id number], Partial fill upon patient request ifthe prescription is for a schedule II opioid drug... Start Date: 03/28/22 Status: OrderedProAir HFA 90 mcg/inh inhalation aerosol with adapter 2, puffs, Inhalation, Every 4 hours, PRN, for 90 days, # 3 each, Refills 0, Tot. Refills 0, Physician Stop 05/02/22 16:36:00 EST, 02/01/22 16:36:00 EDT, Route to Pharmacy Electronically, [id number], [facility]/pharmacy #[id number], 160.02... Start Date: 02/01/22 Stop Date: 05/02/22 Status: OrderedToprol XL 25 mg oral tablet, extended release 25 mg, 1, tablet, By Mouth, Daily, # 30 tablet, Refills 0, Tot. Refills 0, Maintenance, 03/28/22 14:07:00 EDT, Route to Pharmacy Electronically, [facility]/pharmacy #[id number], Partial fill upon patient request ifthe [...] Care Team PersonnelName: Janel Hart RN Position: [facility] RN Member Role: Primary Care Nurse Name: Danica Vallejo NP Position: [facility] Associate Professional Member Role: PCP Address: Address: [address] [place] [address]- Care Team Related PersonsName: ASHLEY MOELLER Address: [address] [place] [address]
--- OUTSIDE RECORDS SUMMARY | 2022-04-30 23:01 | XMS_ITS | Continuity of Care Document ---
:1970 Author Organization [facility] Address [address] [place] [address]- Care Team Providers Name Role Phone Genevieve MORA, Danica Primary Care Physician Encounter [facility] Date(s): 12/03/21 - 01/02/22 [facility] [address] [place], [place] [address] Allergies, Adverse Reactions, Alerts Substance [...] EDT, [id number] Partial fill upon patient request if [...] 12/03/21 16:03:00 EDT, Route to Pharmacy Electronically, [facility]/pharmacy #207, 160.02, cm, 09/21/21 11:48:00 EDT, Height Start [...] 7:52:00 EDT, [facility]/pharmacy #207, please cancel lisinopril, 1 [...] 7:52:00 EDT, Powder, [facility]/pharmacy #207, 160.02, cm, 08/26/21 10:47:00 EDT, Height Start Date: 08/30/21 Status: OrderedLantus Solostar Pen 100 units/mL subcutaneous solution = 10 units, Subcutaneous Injection, Daily at bedtime, # 15 mL, 1 Refills, Maintenance, 09/20/21 8:37:00 EDT, Solution, [facility]/pharmacy #[id number], Partial fill upon patient request if the prescription is for aschedule II opioid drug., 160.02, cm, 09/17/21 8:... Start Date: 09/20/21 Status: Orderedmontelukast 10 mg oral tablet 1, tablet, By Mouth, Daily in PM, # 30 tablet, Refills 5, [facility], 160.02, cm, 12/28/21 11:08:00 EDT, Height Start Date: 12/31/21 Status: OrderedNebulizer mask and tubing Nebulizer mask and tubing, See Instructions, # 1 each, Refills 0, Tot. Refills 0, Maintenance, Dx: Asthma J44.9. To be used with albuterol, 12/17/19 10:33:00 EDT, Compound Start Date: 12/17/19 Status: OrderedPen [place], 31 G x 5 mm BD Ultra [...]
--- OUTSIDE RECORDS SUMMARY | 2022-04-30 23:01 | XMS_ITS | Continuity of Care Document ---
:1970 Author Organization [facility] Address [address] [address]- Care Team Providers Name Role Phone Genevieve MORA, Danica Primary Care Physician Encounter [facility] [place] Date(s): 09/02/21 - 12/31/21 [facility] [address] [place] [id number] Attending Physician: Josh Davis MD Admitting Physician: Josh Davis MD Referring Physician: Danica Vallejo NP Allergies, [...] 10:47:00 EDT, Height Start Date: 08/30/21 Status: Ordereddoxycycline monohydrate 100 mg oral capsule 1 capsule = 100 mg, By Mouth, 2 times a day, for 5 days, # 10 capsule, 0 Refills, Acute 01/02/22 11:28:00 EDT, 12/28/21 11:28:00 EDT, Capsule, [facility]/pharmacy #[id number], Partial fill upon patient request if the prescription is for a schedule II opioid drug.,... Start Date: 12/28/21 Stop Date: 01/02/22 Status: OrderedFreestyle Lite Monitor See Instructions, # [...] 12/03/21 16:03:00 EDT, Route to Pharmacy Electronically, [facility]/pharmacy #207, 160.02, cm, 09/21/21 11:48:00 EDT, Height [...] 08/30/21 7:52:00 EDT, [facility]/pharmacy #[id number], please cancel lisinopril, 1 tablet [...] tablet, Refills 5, Route to Pharmacy Electronically, [facility] 295[facility], 160.02, cm, 12/28/21 11:08:00 EDT, Height Start Date: 12/31/21 Status: OrderedNebulizer mask and tubing Nebulizer mask and tubing, See Instructions, # 1 each, Refills 0, Tot. Refills 0, Maintenance, Dx: Asthma J44.9. To be used with albuterol, 12/17/19 10:33:00 EDT, Compound Start Date: 12/17/19 Status: OrderedPen [place], 31 G x 5 mm BD Ultra Fine III See Instructions, # 100 each, Maintenance, Use daily with Lantus solostar pen Dx: Type 2 DM ICD 10: E11.9, 09/20/21 8:38:00 EDT, Supply, 160.02, cm, 09/17/21 8:57:00 EDT, Height Start Date: 09/20/21 Status: OrderedpredniSONE 20 mg oral tablet 2 tablet = 40 mg, By Mouth, Daily, for 5 days, # 10 tablet, 0 Refills, Acute 01/02/22 11:28:00 EDT, 12/28/21 11:28:00 EDT, Tablet, [facility]/pharmacy #[id number], Partial fill upon patient request if the prescription is for a schedule II opioid drug., 160.02, cm,... Start Date: 12/28/21 Stop Date: 01/02/22 Status: Ordered Problem List Condition Effective Dates [...]
--- OUTSIDE RECORDS SUMMARY | 2022-04-30 23:01 | XMS_ITS | Continuity of Care Document ---
:[address] [facility] Address [address] [place] [address]- Care Team Providers Name Role Phone Genevieve MORA, Danica Primary Care Physician [place] [facility] [place]s): 05/20/21 - 06/19/21 [facility] [address] [place] [address]- Allergies, Adverse Reactions, Alerts Substance Reaction Severity [...] tablet, 5 Refills, Maintenance, 11/13/20 9:29:00 EDT, [facility]/pharmacy #2071, 160.02, cm, 11/22/19 13:52:00 EDT, Height, 74, kg, 01/04/19 9:01:00 EDT, Dry Weight Start Date: 11/13/20 Stop Date: 05/12/21 Status: Orderedatorvastatin 10 mg oral tablet 1 tablet = 10 mg, By Mouth, Daily, Cholesterol medication, # 30 tablet, 5 Refills, Maintenance, 11/13/20 9:29:00 EDT, [facility]/pharmacy #[id number], 160.02, cm, 11/22/19 13:52:00 EDT, [...] 3 Refills, Maintenance, 03/24/20 14:26:00 EDT, Tablet, [facility]/pharmacy #2070, 160.02, cm, 11/22/19 13:52:00 EDT, Height, 74, kg, 01/04/19 9:01:00 EDT, Dry Weight Start Date: 03/24/20 Status: Orderedfluconazole 150 mg oral tablet 1 tablet = 150 mg, By Mouth, Once, Repeat dose if still having symptoms in 72 hours, # 2 tablet, 0 Refills, Soft Stop, 11/13/20 9:32:00 EDT, Tablet, [facility]/pharmacy #207, Partial fill upon patient request if [...] 60 capsule, Refills 0, Tot. Refills 0, Maintenance, 05/20/21 15:41:00 EST, Route to Pharmacy Electronically, [facility]/pharmacy #[id number], 160.02, cm, 11/22/19 13:52:00 EDT, Height Start Date: 05/20/21 Status: Orderedglipizide-metformin 5 mg-500 mg oral tablet 2 tablet, By Mouth, 2 times a day, DIABETES, # 60 tablet, 5 Refills, Maintenance, 11/13/20 9:30:00 EDT, Tablet, [facility]/pharmacy #207, 2 tablet By Mouth 2 [...] tablet, 5 Refills, Maintenance, 11/13/20 9:30:00 EDT, [facility]/pharmacy #[id number], please cancel lisinopril, 1 tablet By Mouth Daily,Instr:NEW BLOOD PRESSURE MEDICATION, 160.02, cm, 11/22/19 13:52:... Start Date: 11/13/20 Status: OrderedIncruse Ellipta 62.5 mcg/inh inhalation powder 1 each, Inhalation, Every 24 hours, doses should be taken at least 24 hours apart, # 30 each, 5 Refills, Maintenance, 11/13/20 9:30:00 EDT, Powder, [facility]/pharmacy #[id number], 160.02, cm, 11/22/19 13:52:00 EDT, [...] 10/05/20 16:18:00 EDT, Route to Pharmacy Electronically, [id number], [facility]/pharmacy #2071, 160.02... Start Date: 10/05/20 Stop Date: 07/02/21 Status: OrderedSingulair 10 mg oral tablet 10 mg, 1, tablet, By Mouth, Daily in PM, ASTHMA, # 30 tablet, Refills 5, Tot. Refills 5, Maintenance, 11/13/20 9:29:00 EDT, Route to Pharmacy Electronically, [facility]/pharmacy #[id number], 160.02, cm, 11/22/19 13:52:00 EDT, [...]
--- OUTSIDE RECORDS SUMMARY | 2022-04-30 23:01 | XMS_ITS | Continuity of Care Document ---
:1970 Author Organization [facility] Address [address] [place] [address]- Care Team Providers Name Role Phone Medina Moss MD Primary Care Physician [place] [facility] [place] Date(s): 11/14/19 - 12/18/[address] [facility] [address] [place] [address]- [facility] Attending Physician: Juaquin Byrd MD Admitting Physician: Juaquin Byrd MD Referring Physician: Medina Moss MD Allergies, [...] tablet, 5 Refills, Maintenance, 10/29/19 13:46:00 EDT, [facility]/pharmacy #[id number], 160.02, cm, 01/04/19 9:01:00 EDT, Height, 74, kg, 01/04/19 9:01:00 EDT, Dry Weight Start Date: 10/29/19 Stop Date: 04/26/20 Status: Orderedatorvastatin 10 mg oral tablet 1 tablet = 10 mg, By Mouth, Daily, Cholesterol medication, # 30 tablet, 5 Refills, Maintenance, 10/30/19 12:11:00 EDT, [facility]/pharmacy #[id number], 160.02, cm, 10/30/19 9:28:00 EDT, Height, 74, kg, 01/04/19 9:01:00 EDT, Dry Weight Start Date: 10/30/19 Status: OrderedBydureon Pen 2 mg subcutaneous injection, extended release See Instructions, INJECT 2 MG BY SUBCUTANEOUS INFUSION EVERY 7 DAYS, # 4 Unknown, 5 Refills, Maintenance, [id number], 160.02, cm, 10/30/19 9:28:00 EDT, Height, 74, kg, 01/04/19 9:01:00 EDT, Dry Weight Start Date: 10/30/19 Status: Orderedcyclobenzaprine 5 mg oral tablet 1 tablet = 5 mg, By Mouth, 3 times a day, PRN Spasm, # 40 tablet, 3 Refills, Maintenance, 10/30/19 12:12:00 EDT, Tablet, [facility]/pharmacy #[id number], 160.02, cm, 10/30/19 9:28:00 EDT, Height, [...] 10/30/19 12:12:00 EDT, Route to Pharmacy Electronically, [facility]/pharmacy #[id number], 160.02, cm, 10/30/19 9:28:00 EDT, Height, 74, kg, 01/04/19 9:01:00 EDT,... Start Date: 10/30/19 Status: Orderedglipizide-metformin 5 mg-500 mg oral tablet 2 tablet, By Mouth, 2 times a day, DIABETES, # 60 tablet, 5 Refills, Maintenance, 10/30/19 12:13:00 EDT, Tablet, [facility]/pharmacy #[id number], 2 tablet By Mouth 2 times a day,Instr:DIABETES, 160.02, cm, 209:28:00 EDT, Height, 74, kg, 01/04/19 9:01:00 EDT... Start Date: 10/30/19 Status: Orderedlisinopril 10 mg oral tablet 10 mg, 1, tablet, By Mouth, Daily, BLOOD PRESSURE, # 30 tablet, Refills 5, Tot. Refills 5, Maintenance, 10/30/19 12:13:00 EDT, Route to Pharmacy Electronically, [facility]/pharmacy #[id number], Appt required for further refills, [...] Replace Required Details, Route to Pharmacy Electronically, [id number], [facility]... Start Date: 10/29/19 Status: OrderedSingulair 10 mg oral tablet 10 mg, 1, tablet, By Mouth, Daily in PM, ASTHMA, # 30 tablet, Refills 5, Tot. Refills 5, Maintenance, 10/30/19 12:07:00 EDT, Route to Pharmacy Electronically, [facility]/pharmacy #[id number], 160.02, cm, 10/30/19 9:28:00 EDT, Height, [...]
--- OUTSIDE RECORDS SUMMARY | 2022-04-30 23:01 | XMS_ITS | Continuity of Care Document ---
:1970 Author Organization [facility] Address [address] [place] [address]- Care Team Providers Name Role Phone Isa CISNEROS, Medina Primary Care Physician [place] [facility] [place]/20 [facility] [address] [place], [place] [address] Attending Physician: Mitul Patel Admitting Physician: Admtr, Mitul Referring Physician: Admtr, Ar8 Allergies, Adverse Reactions, [...] tablet, 5 Refills, Maintenance, 03/24/20 14:24:00 EDT, [facility]/pharmacy #[id number], 160.02, cm, 11/22/19 13:52:00 EDT, Height, 74, kg, 01/04/19 9:01:00 EDT, Dry Weight Start Date: 03/24/20 Stop Date: 09/20/20 Status: Orderedatorvastatin 10 mg oral tablet 1 tablet = 10 mg, By Mouth, Daily, Cholesterol medication, # 30 tablet, 5 Refills, Maintenance, 03/24/20 14:24:00 EDT, [facility]/pharmacy #207, 160.02, cm, 11/22/19 13:52:00 EDT, Height, 74, kg, 01/04/19 9:01:00 EDT, Dry Weight Start Date: 03/24/20 Status: OrderedBydureon Pen 2 mg subcutaneous injection, extended release See Instructions, INJECT 2 MG BY SUBCUTANEOUS INFUSION EVERY 7 DAYS, # 4 Unknown, 5 Refills, 03/24/20 14:24:00 EDT, [facility]/pharmacy #[id number], 160.02, cm, 11/22/19 13:52:00 EDT, Height, 74, kg, 01/04/19 9:01:00 EDT, Dry Weight Start Date: 03/24/20 Status: Orderedcyclobenzaprine 5 mg oral tablet 1 tablet = 5 mg, By Mouth, 3 times a day, PRN Spasm, # 40 tablet, 3 Refills, Maintenance, 03/24/20 14:26:00 EDT, Tablet, [facility]/pharmacy #[id number], 160.02, cm, 11/22/19 13:52:00 EDT, [...] 03/24/20 14:25:00 EDT, Route to Pharmacy Electronically, [facility]/pharmacy #207, 160.02, cm, 11/22/19 13:52:00 EDT, Height, 74, kg, 01/04/19 9:01:00 EDT,... Start Date: 03/24/20 Status: Orderedglipizide-metformin 5 mg-500 mg oral tablet 2 tablet, By Mouth, 2 times a day, DIABETES, # 60 tablet, 5 Refills, Maintenance, 03/24/20 14:25:00 EDT, Tablet, [facility]/pharmacy #[id number], 2 tablet By Mouth 2 [...] tablet, 5 Refills, Maintenance, 07/01/20 17:14:00 EST, [facility]/pharmacy #207, please cancel lisinopril, 1 tablet By Mouth Daily,Instr:NEW BLOOD PRESSURE MEDICATION, 160.02, cm, 11/22/19 13:52... Start Date: 07/01/20 Status: OrderedIncruse Ellipta 62.5 mcg/inh inhalation powder 1 each, Inhalation, Every 24 hours, doses should be taken at least 24 hours apart, # 30 each, 5 Refills, Maintenance, 03/24/20 14:20:00 EDT, Powder, [facility]/pharmacy #207, 160.02, cm, 11/22/19 13:52:00 EDT, [...] Replace Required Details, Route to Pharmacy Electronically, [id number]... Start Date: 03/24/20 Status: OrderedSingulair 10 mg oral tablet 10 mg, 1, tablet, By Mouth, Daily in PM, ASTHMA, # 30 tablet, Refills 11, Tot. Refills 11, Maintenance, 03/24/20 14:19:00 EDT, Route to Pharmacy Electronically, [facility]/pharmacy #[id number], 160.02, cm, 11/21/2012:52:00 EDT, Height, [...]
--- OUTSIDE RECORDS SUMMARY | 2022-04-30 23:01 | XMS_ITS | Continuity of Care Document ---
:1970 Author Organization [facility] Address [address] [place] [address]- Care Team Providers Name Role Phone Medina Moss MD Primary Care Physician Encounter [facility] [place] Date(s): 11/13/20 - 12/13/20 [facility] [address] [place], [place] [address] Attending Physician: Admtr, Mitul Admitting Physician: Admtr, Mitul Referring Physician: Admtr, [...] tablet, 5 Refills, Maintenance, 11/13/20 9:29:00 EDT, [facility]/pharmacy #[id number], 160.02, cm, 11/22/19 13:52:00 [...] Refills, Soft Stop, 11/13/20 9:32:00 EDT, Tablet, [facility]/pharmacy #[id number], Partial fill upon patient [...] 11/13/20 9:29:00 EDT, Route to Pharmacy Electronically, [facility]/pharmacy #[id number], 160.02, cm, 11/22/19 13:52:00 EDT, Height, 74, kg, 01/04/19 9:01:00 EDT,... Start Date: 11/13/20 Status: Orderedglipizide-metformin 5 mg-500 mg oral tablet 2 tablet, By Mouth, 2 times a day, DIABETES, # 60 tablet, 5 Refills, Maintenance, 11/13/20 9:30:00 EDT, Tablet, [facility]/pharmacy #[id number], 2 tablet By [...] tablet, 5 Refills, Maintenance, 11/13/20 9:30:00 EDT, [facility]/pharmacy #207, please cancel lisinopril, 1 tablet By Mouth Daily,Instr:NEW BLOOD PRESSURE MEDICATION, 160.02, cm, 11/22/19 13:52:... Start Date: 11/13/20 Status: OrderedIncruse Ellipta 62.5 mcg/inh inhalation powder 1 each, Inhalation, Every 24 hours, doses should be taken at least 24 hours apart, # 30 each, 5 Refills, Maintenance, 11/13/20 9:30:00 EDT, Powder, [facility]/pharmacy #207, 160.02, cm, 11/22/19 13:52:00 [...] 10/05/20 16:18:00 EDT, Route to Pharmacy Electronically, [id number], [facility]/pharmacy #207, 160.02... Start Date: 10/05/20 Stop Date: 07/02/21 Status: OrderedSingulair 10 mg oral tablet 10 mg, 1, tablet, By Mouth, Daily in PM, ASTHMA, # 30 tablet, Refills 5, Tot. Refills 5, Maintenance, 11/13/20 9:29:00 EDT, Route to Pharmacy Electronically, [facility]/pharmacy #207, 160.02, cm, 11/22/19 13:52:00 [...]
--- OUTSIDE RECORDS SUMMARY | 2022-04-30 23:01 | XMS_ITS | Continuity of Care Document ---
:1970 Author Organization [facility] Address [address] [place] [address]- Care Team Providers Name Role Phone Genevieve MORA, Danica Primary Care Physician Encounter [facility] [place] Date(s): 08/26/21 - 11/26/21 [facility] [address] [place], [place] [address] Attending Physician: Danica Vallejo NP Allergies, [...] 08/30/21 7:52:00 EDT, Route to Pharmacy Electronically, [facility]/pharmacy #[id number], Partial fill upon patient request if the prescription is for a schedule II opioid drug.... Start Date: 08/30/21 Status: OrderedAspirin Enteric Coated 81 mg oral delayed release tablet 1 tablet = 81 mg, By Mouth, Daily, # 30 tablet, 5 Refills, Maintenance, 08/30/21 7:52:00 EDT, [facility]/pharmacy #[id number], 160.02, cm, 08/26/21 10:47:00 EDT, Height Start Date: 08/30/21 Stop Date: 02/26/22 Status: Orderedatorvastatin 10 mg oral tablet 1 tablet = 10 mg, By Mouth, Daily, Cholesterol medication, # 30 tablet, 2 Refills, Maintenance, 08/30/21 7:52:00 EDT, [facility]/pharmacy #[id number], 160.02, cm, 08/26/21 10:47:00 EDT, [...] 07/30/21 11:08:00 EST, Route to Pharmacy Electronically, [facility]/pharmacy #[id number], 160.02, cm, 11/22/19 13:52:00 EDT, Height Start Date: 07/30/21 Status: Orderedglipizide-metformin 5 mg-500 mg oral tablet 2 tablet, By Mouth, 2 times a day, DIABETES, # 60 tablet, 2 Refills, Maintenance, 08/30/21 7:52:00 EDT, Tablet, [facility]/pharmacy #207, 2 tablet By Mouth 2 times [...] EDT, Compound Start Date: 12/17/19 Status: OrderedPen [place], 31 G x 5 mm BD Ultra [...] 08/30/21 7:52:00 EDT, Route to Pharmacy Electronically, [facility]/pharmacy #[id number], 160.02, cm, 08/26/21 10:47:00 EDT, [...]
--- OUTSIDE RECORDS SUMMARY | 2022-04-30 23:01 | XMS_ITS | Continuity of Care Document ---
:1970 Author Organization [facility] Address [address] [place] [address]- Care Team Providers Name Role Phone Isa CISNEROS, Medina Primary Care Physician Encounter [facility] [place] Date(s): 09/29/20 - 10/06/20 [facility] [address] [place], [place] [address] Attending Physician: Medina Moss MD Allergies, Adverse [...] tablet, 5 Refills, Maintenance, 09/21/20 12:16:00 EDT, [facility]/pharmacy #[id number], 160.02, cm, 11/22/19 13:52:00 EDT, Height, 74, kg, 01/04/19 9:01:00 EDT, Dry Weight Start Date: 09/21/20 Stop Date: 03/20/21 Status: Orderedatorvastatin 10 mg oral tablet 1 tablet = 10 mg, By Mouth, Daily, Cholesterol medication, # 30 tablet, 5 Refills, Maintenance, 09/21/20 12:16:00 EDT, [facility]/pharmacy #[id number], 160.02, cm, 11/22/19 13:52:00 EDT, Height, 74, kg, 01/04/19 9:01:00 EDT, Dry Weight Start Date: 09/21/20 Status: OrderedBydureon Pen 2 mg subcutaneous injection, extended release See Instructions, INJECT 2 MG BY SUBCUTANEOUS INFUSION EVERY 7 DAYS, # 4 Unknown, 5 Refills, 09/21/20 12:16:00 EDT, [facility]/pharmacy #[id number], 160.02, cm, 11/22/19 13:52:00 EDT, Height, 74, kg, 01/04/19 9:01:00 EDT, Dry Weight Start Date: 09/21/20 Status: Orderedcyclobenzaprine 5 mg oral tablet 1 tablet = 5 mg, By Mouth, 3 times a day, PRN Spasm, # 40 tablet, 3 Refills, Maintenance, 03/24/20 14:26:00 EDT, Tablet, [facility]/pharmacy #[id number], 160.02, cm, 11/22/19 13:52:00 [...] 09/21/20 12:16:00 EDT, Route to Pharmacy Electronically, [facility]/pharmacy #207, 160.02, cm, 11/22/19 13:52:00 EDT, Height, 74, kg, 01/04/19 9:01:00 EDT,... Start Date: 09/21/20 Status: Orderedglipizide-metformin 5 mg-500 mg oral tablet 2 tablet, By Mouth, 2 times a day, DIABETES, # 60 tablet, 5 Refills, Maintenance, 09/21/20 12:16:00 EDT, Tablet, [facility]/pharmacy #207, 2 tablet By Mouth [...] tablet, 5 Refills, Maintenance, 07/01/20 17:14:00 EST, [facility]/pharmacy #207, please cancel lisinopril, 1 tablet By Mouth Daily,Instr:NEW BLOOD PRESSURE MEDICATION, 160.02, cm, 11/22/19 13:52... Start Date: 07/01/20 Status: OrderedIncruse Ellipta 62.5 mcg/inh inhalation powder 1 each, Inhalation, Every 24 hours, doses should be taken at least 24 hours apart, # 30 each, 5 Refills, Maintenance, 09/21/20 12:17:00 EDT, Powder, [facility]/pharmacy #[id number], 160.02, cm, 11/22/19 13:52:00 [...] 10/05/20 16:18:00 EDT, Route to Pharmacy Electronically, [id number], [facility]/pharmacy #[id number], 160.02... Start Date: 10/05/20 Stop Date: 07/02/21 Status: OrderedSingulair 10 mg oral tablet 10 mg, 1, tablet, By Mouth, Daily in PM, ASTHMA, # 30 tablet, Refills 11, Tot. Refills 11, Maintenance, 03/24/20 14:19:00 EDT, Route to Pharmacy Electronically, [facility]/pharmacy #[id number], 160.02, cm, 11/21/2012:52:00 EDT, [...]
--- OUTSIDE RECORDS SUMMARY | 2022-04-30 23:01 | XMS_ITS | Continuity of Care Document ---
:[address] [facility] Address [address] [place] [address]- Care Team Providers Name Role Phone Genevieve MORA, Danica Primary Care Physician [place] [facility] [place]/08/22 - 03/10/22 [facility] [address] [place], [place] [address] Allergies, Adverse Reactions, Alerts Substance Reaction [...] 02/11/22 17:35:00 EDT, [id number] Partial fill upon patient request ifthe prescription is for a schedule II opioid drug... Start Date: 02/11/22 Status: OrderedAspirin Enteric Coated 81 mg oral delayed release tablet 1 tablet = 81 mg, By Mouth, Daily, # 30 tablet, 5 Refills, Maintenance, 02/11/22 17:36:00 EDT, [facility]/pharmacy #[id number], 160.02, cm, 02/07/22 10:35:00 EDT, Height Start Date: 02/11/22 Stop Date: 08/10/22 Status: Orderedatorvastatin 10 mg oral tablet 1 tablet = 10 mg, By Mouth, Daily, Cholesterol medication, # 30 tablet, 2 Refills, Maintenance, 02/11/22 17:35:00 EDT, [facility]/pharmacy #[id number], 160.02, cm, 02/07/22 10:35:00 EDT, Height [...] 02/11/22 17:35:00 EDT, Route to Pharmacy Electronically, [facility]/pharmacy #207, 160.02, cm, 02/07/22 10:35:00 EDT, Height Start Date: 02/11/22 Status: Orderedglipizide-metformin 5 mg-500 mg oral tablet 2 tablet, By Mouth, 2 times a day, DIABETES, # 120 tablet, 2 Refills, Maintenance, 02/11/22 17:35:00EDT, Tablet, [facility]/pharmacy #207, 2 tablet By Mouth 2 times [...] tablet, 2 Refills, Maintenance, 02/11/22 17:35:00 EDT, [facility]/pharmacy #207, please cancel lisinopril, 1 tablet By [...] 2 Refills, Maintenance, 02/11/22 17:35:00 EDT, Powder, [facility]/pharmacy #[id number], 160.02, cm, 02/07/22 10:35:00 EDT, Height Start Date: 02/11/22 Status: OrderedLantus Solostar Pen 100 units/mL subcutaneous solution = 20 units, Subcutaneous Injection, Daily at bedtime, Dose increase, # 15 mL, 1 Refills, Maintenance, 02/11/22 17:36:00 EDT, Solution, [facility]/pharmacy #[id number], Partial fill upon patient request if [...] 1,01/31/22 10:36:00 EDT, Route to Pharmacy Electronically, [facility]/pharmacy #[id number], 160.02, cm, 12/28/21 11:08:00 EDT, Height Start Date: 01/31/22 Status: OrderedNebulizer mask and tubing Nebulizer mask and tubing, See Instructions, # 1 each, Refills 0, Tot. Refills 0, Maintenance, Dx: Asthma J44.9. To be used with albuterol, 12/17/19 10:33:00 EDT, Compound Start Date: 12/17/19 Status: OrderedPen [place], 31 G x 5 mm BD Ultra [...] 02/01/22 16:36:00 EDT, Route to Pharmacy Electronically, [id number], [facility]/pharmacy #[id number], 160.02... Start Date: 02/01/22 Stop [...] information PersonnelName: Danica Vallejo NP Address: Address: [address] [place] [address]
--- OUTSIDE RECORDS SUMMARY | 2022-04-30 23:01 | XMS_ITS | Continuity of Care Document ---
:1970 Author Organization [facility] Address [address] [place] [address]- Care Team Providers Name Role Phone Genevieve MORA, Danica Primary Care Physician Encounter [facility] [place] Date(s[place] 07/30/21 - 09/03/21 [facility] [address] [place], [place] [address] Attending Physician: Danica Vallejo NP [...] ICD 10 E11.9. Test 3 times daily., 07/26/19 9:49:06 EDT, Compound Start Date: 01/04/19 Status: OrderedamLODIPine 10 mg oral tablet 10 mg, 1, tablet, By Mouth, Daily, # 30 tablet, Refills 2, Tot. Refills 2, Maintenance, 08/30/21 7:52:00 EDT, Route to Pharmacy Electronically, [facility]/pharmacy #[id number], Partial fill upon patient request if the prescription is for a schedule II opioid drug.... Start Date: 08/30/21 Status: OrderedAspirin Enteric Coated 81 mg oral delayed release tablet 1 tablet = 81 mg, By Mouth, Daily, # 30 tablet, 5 Refills, Maintenance, 08/30/21 7:52:00 EDT, [facility]/pharmacy #207, 160.02, cm, 08/26/21 10:47:00 EDT, Height Start Date: 08/30/21 Stop Date: 02/26/22 Status: Orderedatorvastatin 10 mg oral tablet 1 tablet = 10 mg, By Mouth, Daily, Cholesterol medication, # 30 tablet, 2 Refills, Maintenance, 08/30/21 7:52:00 EDT, [facility]/pharmacy #[id number], 160.02, cm, 08/26/21 10:47:00 EDT, Height [...] 07/30/21 11:08:00 EST, Route to Pharmacy Electronically, [facility]/pharmacy #[id number], 160.02, cm, 11/22/19 13:52:00 EDT, Height Start Date: 07/30/21 Status: Orderedglipizide-metformin 5 mg-500 mg oral tablet 2 tablet, By Mouth, 2 times a day, DIABETES, # 60 tablet, 2 Refills, Maintenance, 08/30/21 7:52:00 EDT, Tablet, [facility]/pharmacy #[id number], 2 tablet By Mouth 2 times [...] tablet, 2 Refills, Maintenance, 08/30/21 7:52:00 EDT, [facility]/pharmacy #207, please cancel lisinopril, 1 tablet By Mouth Daily,Instr:NEW BLOOD PRESSURE MEDICATION, 160.02, cm, 08/26/21 10:47:... Start Date: 08/30/21 Status: OrderedIncruse Ellipta 62.5 mcg/inh inhalation powder 1 each, Inhalation, Every 24 hours, doses should be taken at least 24 hours apart, # 30 each, 2 Refills, Maintenance, 08/30/21 7:52:00 EDT, Powder, [facility]/pharmacy #207, 160.02, cm, 08/26/21 10:47:00 EDT, Height Start Date: 08/30/21 Status: OrderedNebulizer mask and tubing Nebulizer mask and tubing, See Instructions, # 1 each, Refills 0, Tot. Refills 0, Maintenance, Dx: Asthma J44.9. To be used with albuterol, 12/17/19 10:33:00 EDT, Compound Start Date: 12/17/19 Status: Orderednicotine 21 mg/24 hr transdermal film, extended release 1 patch, Topically, Daily, for 14 days, Do not smoke while patch is on. If desired to smoke, please remove patch first., # 14 patch, 0 Refills, Acute 09/13/21 8:01:00 EDT, 08/30/21 8:01:00 EDT, Patch, [facility]/pharmacy #[id number], Partial fill upon patient req... Start Date: 08/30/21 Stop Date: 09/13/21 Status: OrderedSingulair 10 mg oral tablet 10 mg, 1, tablet, By Mouth, Daily in PM, ASTHMA, # 30 tablet, Refills 2, Tot. Refills 2, Maintenance, 08/30/21 7:52:00 EDT, Route to Pharmacy Electronically, [facility]/pharmacy #[id number], 160.02, cm, 08/26/21 10:47:00 EDT, Height [...]
--- OUTSIDE RECORDS SUMMARY | 2022-04-30 23:01 | XMS_ITS | Continuity of Care Document ---
:1970 Author Organization [facility] Address [address] [place] [id number]- Care Team Providers Name Role Phone Genevieve MORA, Danica Primary Care Physician Encounter [facility] [place] Date(s): 02/22/22 - 04/03/[address] [address] Attending Physician: Danica Vallejo NP Admitting Physician: Danica Vallejo NP Referring Physician: Danica Vallejo NP Allergies, Adverse [...] 1 each, 2 Refills,Maintenance, 03/14/22 9:19:00 EDT, [facility]/pharmacy #[id number], 2 puffs Inhalation 2 times a [...] 02/11/22 17:35:00 EDT, Route to Pharmacy Electronically, [facility]/pharmacy #[id number], Partial fill upon patient request ifthe prescription is for a schedule II opioid drug... Start Date: 02/11/22 Status: OrderedAspirin Enteric Coated 81 mg oral delayed release tablet 1 tablet = 81 mg, By Mouth, Daily, # 30 tablet, 5 Refills, Maintenance, 02/11/22 17:36:00 EDT, [facility]/pharmacy #[id number], 160.02, cm, 02/07/22 10:35:00 EDT, Height Start Date: 02/11/22 Stop Date: 08/10/22 Status: Orderedatorvastatin 80 mg oral tablet 1 tablet = 80 mg, By Mouth, Daily at bedtime, # 30 tablet, 0 Refills, Maintenance, 03/28/22 14:31:00EDT, Tablet, [facility]/pharmacy #[id number], Partial fill upon patient request if [...] 02/11/22 17:35:00 EDT, Route to Pharmacy Electronically, [facility]/pharmacy #[id number], 160.02, cm, 02/07/22 10:35:00 EDT, Height Start Date: 02/11/22 Status: Orderedglipizide-metformin 5 mg-500 mg oral tablet 2 tablet, By Mouth, 2 times a day, DIABETES, # 120 tablet, 2 Refills, Maintenance, 02/11/22 17:35:00EDT, Tablet, [facility]/pharmacy #[id number], 2 tablet By Mouth 2 times [...] 2 Refills, Maintenance, 02/11/22 17:35:00 EDT, Powder, [facility]/pharmacy #207, 160.02, cm, 02/07/22 10:35:00 EDT, Height Start Date: 02/11/22 Status: OrderedLantus Solostar Pen 100 units/mL subcutaneous solution = 20 units, Subcutaneous Injection, Daily at bedtime, Dose increase, # 15 mL, 1 Refills, Maintenance, 02/11/22 17:36:00 EDT, Solution, [facility]/pharmacy #207, Partial fill upon patient request if the prescription is for a schedule II opioid drug., 160.02,... Start Date: 02/11/22 Status: OrderedLasix 40 mg oral tablet 40 mg, 1, tablet, By Mouth, Daily, # 30 tablet, Refills 0, Tot. Refills 0, Maintenance, 03/28/22 14:06:00 EDT, Route to Pharmacy Electronically, [facility]/pharmacy #[id number], Partial fill upon patient request ifthe [...] 03/28/22 14:06:00 EDT, Route to Pharmacy Electronically, [facility]/pharmacy #[id number], Partial fill upon patient requestif the prescription is for a schedule II opioid d... Start Date: 03/28/22 Status: Orderedmontelukast 10 mg oral tablet 1, tablet, By Mouth, Daily in PM, Disregard previous script, # 30 tablet, Refills 1, Tot. Refills 1,01/31/22 10:36:00 EDT, Route to Pharmacy Electronically, [facility]/pharmacy #[id number], 160.02, cm, 12/28/21 11:08:00 EDT, Height Start Date: 01/31/22 Status: OrderedNebulizer mask and tubing Nebulizer mask and tubing, See Instructions, # 1 each, Refills 0, Tot. Refills 0, Maintenance, Dx: Asthma J44.9. To be used with albuterol, 12/17/19 10:33:00 EDT, Compound Start Date: 12/17/19 Status: OrderedPen [place], 31 G x 5 mm BD Ultra [...] 03/28/22 14:05:00 EDT, Route to Pharmacy Electronically, [facility]/pharmacy #[id number], Partial fill upon patient request ifthe prescription is for a schedule II opioid drug... Start Date: 03/28/22 Status: OrderedProAir HFA 90 mcg/inh inhalation aerosol with adapter 2, puffs, Inhalation, Every 4 hours, PRN, for 90 days, # 3 each, Refills 0, Tot. Refills 0, Physician Stop 05/02/22 16:36:00 EST, 02/01/22 16:36:00 EDT, Route to Pharmacy Electronically, [id number], [facility]/pharmacy #[id number], 160.02... Start Date: 02/01/22 Stop Date: 05/02/22 Status: OrderedToprol XL 25 mg oral tablet, extended release 25 mg, 1, tablet, By Mouth, Daily, # 30 tablet, Refills 0, Tot. Refills 0, Maintenance, 03/28/22 14:07:00 EDT, Route to Pharmacy Electronically, [facility]/pharmacy #[id number], Partial fill upon patient request ifthe [...] information PersonnelName: Danica Vallejo NP Address: Address: [address] [address]-
--- OUTSIDE RECORDS SUMMARY | 2022-04-30 23:01 | XMS_ITS | Continuity of Care Document ---
:[address] [facility] Address [address] [place] [address]- Care Team Providers Name Role Phone Genevieve MORA, Danica Primary Care Physician Encounter [facility] [place] Date(s): 12/28/21 - 01/04/22 [facility] [address] [place], [place] [address] Encounter Diagnosis COPD exacerbation (Discharge Diagnosis) - 12/28/21 Rib pain on right side (Discharge Diagnosis) - 12/28/21 Tachycardia (Discharge Diagnosis) - 12/28/21 Attending Physician: Aidan Hanley MD Referring Physician: Danica Vallejo NP Allergies, [...] 08/30/21 7:52:00 EDT, [id number] Partial fill upon patient request if the prescription is for a schedule II opioid drug.... Start Date: 08/30/21 Status: OrderedAspirin Enteric Coated 81 mg oral delayed release tablet 1 tablet = 81 mg, By Mouth, Daily, # 30 tablet, 5 Refills, Maintenance, 08/30/21 7:52:00 EDT, [facility]/pharmacy #[id number], 160.02, cm, 08/26/21 10:47:00 EDT, Height Start Date: 08/30/21 Stop Date: 02/26/22 Status: Orderedatorvastatin 10 mg oral tablet 1 tablet = 10 mg, By Mouth, Daily, Cholesterol medication, # 30 tablet, 2 Refills, Maintenance, 08/30/21 7:52:00 EDT, [facility]/pharmacy #[id number], 160.02, cm, 08/26/21 10:47:00 EDT, [...] 12/03/21 16:03:00 EDT, Route to Pharmacy Electronically, [facility]/pharmacy #[id number], 160.02, cm, 09/21/21 11:48:00 EDT, Height Start Date: 12/03/21 Status: Orderedglipizide-metformin 5 mg-500 mg oral tablet 2 tablet, By Mouth, 2 times a day, DIABETES, # 60 tablet, 2 Refills, Maintenance, 08/30/21 7:52:00 EDT, Tablet, [facility]/pharmacy #[id number], 2 tablet By Mouth 2 [...] tablet, 2 Refills, Maintenance, 08/30/21 7:52:00 EDT, [facility]/pharmacy #[id number], please cancel lisinopril, 1 tablet By [...] 2 Refills, Maintenance, 08/30/21 7:52:00 EDT, Powder, [facility]/pharmacy #[id number], 160.02, cm, 08/26/21 10:47:00 EDT, Height Start Date: 08/30/21 Status: OrderedLantus Solostar Pen 100 units/mL subcutaneous solution = 10 units, Subcutaneous Injection, Daily at bedtime, # 15 mL, 1 Refills, Maintenance, 09/20/21 8:37:00 EDT, Solution, [facility]/pharmacy #[id number], Partial fill upon patient request if the prescription is for aschedule II opioid drug., 160.02, cm, 09/17/21 8:... Start Date: 09/20/21 Status: Orderedmontelukast 10 mg oral tablet 1, tablet, By Mouth, Daily in PM, Disregard previous script, # 30 tablet, Refills 1, Tot. Refills 1,01/03/22 10:14:00 EDT, Route to Pharmacy Electronically, [facility]/pharmacy #[id number], 160.02, cm, 12/28/21 11:08:00 EDT, Height Start Date: 01/03/22 Status: OrderedNebulizer mask and tubing Nebulizer mask and tubing, See Instructions, # 1 each, Refills 0, Tot. Refills 0, Maintenance, Dx: Asthma J44.9. To be used with albuterol, 12/17/19 10:33:00 EDT, Compound Start Date: 12/17/19 Status: OrderedPen [place], 31 G x 5 mm BD Ultra [...] Diagnosis Type Effective Dates Health Clinical Infor [facility] Status Service COPD exacerbation Discharge 12/28/21 Diagnosis Rib pain on right Discharge 12/28/21 side Diagnosis Tachycardia Discharge 12/28/21 Diagnosis Vital Signs Most recent to oldest [Reference Range]: 1 2 Height 160.02 cm 160.02 cm (12/28/21 11:08 AM) (12/28/21 10:57 AM) Weight 74.3 kg (12/28/21 10:57 AM) Oxygen Saturation [94-100 %] 99 % (12/28/21 10:57 AM) Pulse Rate [55-90 bpm] 116 bpm *H* (12/28/21 10:57 AM) Body Mass Index [18.5-24.99] 29.02 *H* (12/28/21 10:57 AM) Blood Pressure [90-138/55-84 mm Hg] 126/70 mm Hg 146/ 70 mm Hg (12/28/21 11:08 AM) *H* (12/28/21 10:57 AM) Mode of Delivery (Oxygen) Room air (12/28/21 10:57 AM) Blood pressure sites Arm, left Arm, left (12/28/21 11:08 AM) (12/28/21 10:57 AM) Weight Obtained Via Standing scale (12/28/21 10:57 AM) Social History Social History Type Response Smoking Status Current every day smoker; To bacco user in household: Yes; Type: Cigarettes; Other: more than 5 a day; entered on: 12/28/16 Sex
--- OUTSIDE RECORDS SUMMARY | 2022-04-30 23:01 | XMS_ITS | Continuity of Care Document ---
:1970 Author Organization [facility] Address [address] [place] [address]- Care Team Providers Name Role Phone Medina Moss MD Primary Care Physician [place] [facility] [place] 11[place]15/19 [facility] [address] [place] [address]- [facility] Attending Physician: Medina Moss MD Allergies, Adverse [...] tablet, 5 Refills, Maintenance, 10/29/19 13:46:00 EDT, [facility]/pharmacy #[id number], 160.02, cm, 01/04/19 9:01:00 EDT, Height, 74, kg, 01/04/19 9:01:00 EDT, Dry Weight Start Date: 10/29/19 Stop Date: 04/26/20 Status: Orderedatorvastatin 10 mg oral tablet 1 tablet = 10 mg, By Mouth, Daily, Cholesterol medication, # 30 tablet, 5 Refills, Maintenance, 10/30/19 12:11:00 EDT, [facility]/pharmacy #[id number], 160.02, cm, 10/30/19 9:28:00 EDT, Height, 74, kg, 01/04/19 9:01:00 EDT, Dry Weight Start Date: 10/30/19 Status: OrderedBydureon Pen 2 mg subcutaneous injection, extended release See Instructions, INJECT 2 MG BY SUBCUTANEOUS INFUSION EVERY 7 DAYS, # 4 Unknown, 5 Refills, Maintenance, [id number], 160.02, cm, 10/30/19 9:28:00 EDT, Height, 74, kg, 01/04/19 9:01:00 EDT, Dry Weight Start Date: 10/30/19 Status: Orderedcyclobenzaprine 5 mg oral tablet 1 tablet = 5 mg, By Mouth, 3 times a day, PRN Spasm, # 40 tablet, 3 Refills, Maintenance, 10/30/19 12:12:00 EDT, Tablet, [facility]/pharmacy #[id number], 160.02, cm, 10/30/19 9:28:00 EDT, [...] 10/30/19 12:12:00 EDT, Route to Pharmacy Electronically, [facility]/pharmacy #[id number], 160.02, cm, 10/30/19 9:28:00 EDT, Height, 74, kg, 01/04/19 9:01:00 EDT,... Start Date: 10/30/19 Status: Orderedglipizide-metformin 5 mg-500 mg oral tablet 2 tablet, By Mouth, 2 times a day, DIABETES, # 60 tablet, 5 Refills, Maintenance, 10/30/19 12:13:00 EDT, Tablet, [facility]/pharmacy #[id number], 2 tablet By Mouth 2 times a day,Instr:DIABETES, 160.02, cm, 209:28:00 EDT, Height, 74, kg, 01/04/19 9:01:00 EDT... Start Date: 10/30/19 Status: Orderedlisinopril 10 mg oral tablet 10 mg, 1, tablet, By Mouth, Daily, BLOOD PRESSURE, # 30 tablet, Refills 5, Tot. Refills 5, Maintenance, 10/30/19 12:13:00 EDT, Route to Pharmacy Electronically, [facility]/pharmacy #[id number], Appt required for further refills, [...] Replace Required Details, Route to Pharmacy Electronically, [id number], [facility]... Start Date: 10/29/19 Status: OrderedSingulair 10 mg oral tablet 10 mg, 1, tablet, By Mouth, Daily in PM, ASTHMA, # 30 tablet, Refills 5, Tot. Refills 5, Maintenance, 10/30/19 12:07:00 EDT, Route to Pharmacy Electronically, [facility]/pharmacy #[id number], 160.02, cm, 10/30/19 9:28:00 EDT, Height, 74, kg, 01/04/19 9:01:00 EDT,... Start Date: 10/30/19 Status: Ordered Problem List Condition Effective Dates Status Health Status Informant COPD with asthma(Confirmed) Active Type 2 Diabetes Mellitus with Active peripheral neuropathy(Confirmed) Family history of early CAD(Confirmed) Active Hypertension(Confirmed) Active Tobacco use(Confirmed) Active Vital Signs Most recent to oldest [Reference Range]: 1 Height 160.02 cm (11/08/19 10:37 AM) Social History Social History Type Response Smoking Status Current every day smoker; To bacco user in household: Yes; Other: 2 packs a day; entered on: 01/03/17 Sex
--- OUTSIDE RECORDS SUMMARY | 2022-04-30 23:01 | XMS_ITS | Continuity of Care Document ---
:1970 Author Organization [facility] Address [address] [place] [address]- Care Team Providers Name Role Phone Genevieve MORA, Danica Primary [id number] 09/17/21 - 09/24/21 [facility] [address] [place], [place] [address] Attending Physician: Danica Vallejo NP Referring Physician: Luis Miguel Cantu MD Allergies, Adverse Reactions, Alerts Substance Reaction [...] 08/30/21 7:52:00 EDT, Route to Pharmacy Electronically, [facility]/pharmacy #[id number], Partial fill upon patient request if the prescription is for a schedule II opioid drug.... Start Date: 08/30/21 Status: OrderedAspirin Enteric Coated 81 mg oral delayed release tablet 1 tablet = 81 mg, By Mouth, Daily, # 30 tablet, 5 Refills, Maintenance, 08/30/21 7:52:00 EDT, [facility]/pharmacy #[id number], 160.02, cm, 08/26/21 10:47:00 EDT, Height Start Date: 08/30/21 Stop Date: 02/26/22 Status: Orderedatorvastatin 10 mg oral tablet 1 tablet = 10 mg, By Mouth, Daily, Cholesterol medication, # 30 tablet, 2 Refills, Maintenance, 08/30/21 7:52:00 EDT, [facility]/pharmacy #[id number], 160.02, cm, 08/26/21 10:47:00 EDT, Height [...] 07/30/21 11:08:00 EST, Route to Pharmacy Electronically, [facility]/pharmacy #[id number], 160.02, cm, 11/22/19 13:52:00 EDT, Height [...] Refills, Maintenance, 08/30/21 7:52:00 EDT, Powder, [facility]/pharmacy #[id number], 160.02, cm, 08/26/21 10:47:00 EDT, Height [...] EDT, Compound Start Date: 12/17/19 Status: OrderedPen [place], 31 G x 5 mm BD Ultra [...] 08/30/21 7:52:00 EDT, Route to Pharmacy Electronically, [facility]/pharmacy #[id number], 160.02, cm, 08/26/21 10:47:00 EDT, Height Start Date: 08/30/21 Status: Ordered Problem List Condition Effective Dates Status Health Status Informant COPD with asthma(Confirmed) Active Type 2 Diabetes Mellitus with Active peripheral neuropathy(Confirmed) Family history of early CAD(Confirmed) Active Hypertension(Confirmed) Active Tobacco use(Confirmed) Active Vital Signs Most recent to oldest [Reference Range]: 1 2 Height 160.02 cm 160.02 cm (09/21/21 11:48 AM) (09/17/21 8:57 AM) Weight 74.5 kg 74.5 kg (09/21/21 11:48 AM) (09/17/21 8:57 AM) Oxygen Saturation [94-100 %] 97 % (09/17/21 8:57 AM) Pulse Rate [55-90 bpm] 110 bpm *H* (09/17/21 8:57 AM) Body Mass Index [18.5-24.99] 29.09 *H* (09/17/21 8:57 AM) Blood Pressure [90-138/55-84 mm Hg] 130/70 mm Hg (09/17/21 8:57 AM) Mode of Delivery (Oxygen) Room air (09/17/21 8:57 AM) Blood pressure sites Arm, left (09/17/21 8:57 AM) Weight Obtained Via Standing scale (09/17/21 8:57 AM) Social History Social History Type Response Smoking Status Current every day smoker; To bacco user in household: Yes; Type: Cigarettes; Other: more than 5 a day; entered on: 12/28/16 Sex
--- OUTSIDE RECORDS SUMMARY | 2022-04-30 23:01 | XMS_ITS | Continuity of Care Document ---
:1970 Author Organization [facility] Address [address] [address]- Care Team Providers Name Role Phone Genevieve MORA, Danica Primary Care Physician Encounter [facility] [place] Date(s): 03/18/22 - 04/17/22 [facility] [address] [place] [address] Attending Physician: AdmMitul miller Admitting Physician: Admtr, Prince8 Referring Physician: Admtr, [...] 1 each, 2 Refills,Maintenance, 03/14/22 9:19:00 EDT, [facility]/pharmacy #[id number], 2 puffs Inhalation 2 times a [...] 02/11/22 17:35:00 EDT, Route to Pharmacy Electronically, [facility]/pharmacy #[id number], Partial fill upon patient request ifthe prescription is for a schedule II opioid drug... Start Date: 02/11/22 Status: OrderedAspirin Enteric Coated 81 mg oral delayed release tablet 1 tablet = 81 mg, By Mouth, Daily, # 30 tablet, 5 Refills, Maintenance, 02/11/22 17:36:00 EDT, [facility]/pharmacy #[id number], 160.02, cm, 02/07/22 10:35:00 EDT, Height Start Date: 02/11/22 Stop Date: 08/10/22 Status: Orderedatorvastatin 80 mg oral tablet 1 tablet = 80 mg, By Mouth, Daily at bedtime, # 30 tablet, 0 Refills, Maintenance, 03/28/22 14:31:00EDT, Tablet, [facility]/pharmacy #[id number], Partial fill upon patient request if [...] 02/11/22 17:35:00 EDT, Route to Pharmacy Electronically, [facility]/pharmacy #[id number], 160.02, cm, 02/07/22 10:35:00 EDT, Height Start Date: 02/11/22 Status: Orderedglipizide-metformin 5 mg-500 mg oral tablet 2 tablet, By Mouth, 2 times a day, DIABETES, # 120 tablet, 2 Refills, Maintenance, 02/11/22 17:35:00EDT, Tablet, [facility]/pharmacy #[id number], 2 tablet By Mouth 2 times [...] 2 Refills, Maintenance, 02/11/22 17:35:00 EDT, Powder, [facility]/pharmacy #[id number], 160.02, cm, 02/07/22 10:35:00 EDT, Height Start Date: 02/11/22 Status: OrderedLantus Solostar Pen 100 units/mL subcutaneous solution = 20 units, Subcutaneous Injection, Daily at bedtime, Dose increase, # 15 mL, 1 Refills, Maintenance, 02/11/22 17:36:00 EDT, Solution, [facility]/pharmacy #207, Partial fill upon patient request if the prescription is for a schedule II opioid drug., 160.02,... Start Date: 02/11/22 Status: OrderedLasix 40 mg oral tablet 40 mg, 1, tablet, By Mouth, Daily, # 30 tablet, Refills 0, Tot. Refills 0, Maintenance, 03/28/22 14:06:00 EDT, Route to Pharmacy Electronically, [facility]/pharmacy #[id number], Partial fill upon patient request ifthe [...] 03/28/22 14:06:00 EDT, Route to Pharmacy Electronically, [facility]/pharmacy #[id number], Partial fill upon patient requestif the prescription is for a schedule II opioid d... Start Date: 03/28/22 Status: Orderedmontelukast 10 mg oral tablet 1, tablet, By Mouth, Daily in PM, Disregard previous script, # 30 tablet, Refills 1, Tot. Refills 1,01/31/22 10:36:00 EDT, Route to Pharmacy Electronically, [facility]/pharmacy #[id number], 160.02, cm, 12/28/21 11:08:00 EDT, Height Start Date: 01/31/22 Status: OrderedNebulizer mask and tubing Nebulizer mask and tubing, See Instructions, # 1 each, Refills 0, Tot. Refills 0, Maintenance, Dx: Asthma J44.9. To be used with albuterol, 12/17/19 10:33:00 EDT, Compound Start Date: 12/17/19 Status: OrderedPen [place], 31 G x 5 mm BD Ultra [...] 03/28/22 14:05:00 EDT, Route to Pharmacy Electronically, [facility]/pharmacy #[id number], Partial fill upon patient request ifthe prescription is for a schedule II opioid drug... Start Date: 03/28/22 Status: OrderedProAir HFA 90 mcg/inh inhalation aerosol with adapter 2, puffs, Inhalation, Every 4 hours, PRN, for 90 days, # 3 each, Refills 0, Tot. Refills 0, Physician Stop 05/02/22 16:36:00 EST, 02/01/22 16:36:00 EDT, Route to Pharmacy Electronically, [id number], [facility]/pharmacy #[id number], 160.02... Start Date: 02/01/22 Stop Date: 05/02/22 Status: OrderedToprol XL 25 mg oral tablet, extended release 25 mg, 1, tablet, By Mouth, Daily, # 30 tablet, Refills 0, Tot. Refills 0, Maintenance, 03/28/22 14:07:00 EDT, Route to Pharmacy Electronically, [facility]/pharmacy #[id number], Partial fill upon patient request ifthe [...] information PersonnelName: Danica Vallejo NP Address: Address: [address], [place] [address]
--- OUTSIDE RECORDS SUMMARY | 2022-04-30 23:01 | XMS_ITS | Continuity of Care Document ---
:1970 Author Organization [facility] Address [address] [place] [address]- Care Team Providers Name Role Phone Medina Moss MD Primary Care Physician [place] [facility] [place]s): 10/05/20 - 10/12/20 [facility] [address] [place], [place] [address] Attending Physician: Medina Moss MD Allergies, Adverse [...] tablet, 5 Refills, Maintenance, 09/21/20 12:16:00 EDT, [facility]/pharmacy #[id number], 160.02, cm, 11/22/19 13:52:00 EDT, Height, 74, kg, 01/04/19 9:01:00 EDT, Dry Weight Start Date: 09/21/20 Stop Date: 03/20/21 Status: Orderedatorvastatin 10 mg oral tablet 1 tablet = 10 mg, By Mouth, Daily, Cholesterol medication, # 30 tablet, 5 Refills, Maintenance, 09/21/20 12:16:00 EDT, [facility]/pharmacy #[id number], 160.02, cm, 11/22/19 13:52:00 EDT, Height, 74, kg, 01/04/19 9:01:00 EDT, Dry Weight Start Date: 09/21/20 Status: OrderedBydureon Pen 2 mg subcutaneous injection, extended release See Instructions, INJECT 2 MG BY SUBCUTANEOUS INFUSION EVERY 7 DAYS, # 4 Unknown, 5 Refills, 09/21/20 12:16:00 EDT, [facility]/pharmacy #[id number], 160.02, cm, 11/22/19 13:52:00 EDT, Height, 74, kg, 01/04/19 9:01:00 EDT, Dry Weight Start Date: 09/21/20 Status: Orderedcyclobenzaprine 5 mg oral tablet 1 tablet = 5 mg, By Mouth, 3 times a day, PRN Spasm, # 40 tablet, 3 Refills, Maintenance, 03/24/20 14:26:00 EDT, Tablet, [facility]/pharmacy #207, 160.02, cm, 11/22/19 13:52:00 EDT, [...] 09/21/20 12:16:00 EDT, Route to Pharmacy Electronically, [facility]/pharmacy #207, 160.02, cm, 11/22/19 13:52:00 EDT, Height, 74, kg, 01/04/19 9:01:00 EDT,... Start Date: 09/21/20 Status: Orderedglipizide-metformin 5 mg-500 mg oral tablet 2 tablet, By Mouth, 2 times a day, DIABETES, # 60 tablet, 5 Refills, Maintenance, 09/21/20 12:16:00 EDT, Tablet, [facility]/pharmacy #207, 2 tablet By Mouth 2 [...] tablet, 5 Refills, Maintenance, 07/01/20 17:14:00 EST, [facility]/pharmacy #207, please cancel lisinopril, 1 tablet By Mouth Daily,Instr:NEW BLOOD PRESSURE MEDICATION, 160.02, cm, 11/22/19 13:52... Start Date: 07/01/20 Status: OrderedIncruse Ellipta 62.5 mcg/inh inhalation powder 1 each, Inhalation, Every 24 hours, doses should be taken at least 24 hours apart, # 30 each, 5 Refills, Maintenance, 09/21/20 12:17:00 EDT, Powder, [facility]/pharmacy #207, 160.02, cm, 11/22/19 13:52:00 EDT, [...] 10/05/20 16:18:00 EDT, Route to Pharmacy Electronically, [id number], [facility]/pharmacy #[id number], 160.02... Start Date: 10/05/20 Stop Date: 07/02/21 Status: OrderedSingulair 10 mg oral tablet 10 mg, 1, tablet, By Mouth, Daily in PM, ASTHMA, # 30 tablet, Refills 11, Tot. Refills 11, Maintenance, 03/24/20 14:19:00 EDT, Route to Pharmacy Electronically, [facility]/pharmacy #[id number], 160.02, cm, 11/21/2012:52:00 EDT, Height, [...]
--- OUTSIDE RECORDS SUMMARY | 2022-04-30 23:01 | XMS_ITS | Continuity of Care Document ---
:1970 Author Organization [facility] Address [address] [place] [address]- Care Team Providers Name Role Phone Genevieve MORA, Danica Primary Care Physician Encounter [facility] [place] Date(s): 12/22/21 - 01/21/22 [facility] [address] [place], [place] [address] Allergies, Adverse Reactions, Alerts Substance Reaction [...] 08/30/21 7:52:00 EDT, [id number] Partial fill upon patient request if the prescription is for a schedule II opioid drug.... Start Date: 08/30/21 Status: OrderedAspirin Enteric Coated 81 mg oral delayed release tablet 1 tablet = 81 mg, By Mouth, Daily, # 30 tablet, 5 Refills, Maintenance, 08/30/21 7:52:00 EDT, [id number] 160.02, cm, 08/26/21 10:47:00 EDT, Height Start Date: 08/30/21 Stop Date: 02/26/22 Status: Orderedatorvastatin 10 mg oral tablet 1 tablet = 10 mg, By Mouth, Daily, Cholesterol medication, # 30 tablet, 2 Refills, Maintenance, 08/30/21 7:52:00 EDT, [facility]/pharmacy #[id number], 160.02, cm, 08/26/21 10:47:00 EDT, Height [...] 12/03/21 16:03:00 EDT, Route to Pharmacy Electronically, [facility]/pharmacy #[id number], 160.02, cm, 09/21/21 11:48:00 EDT, Height Start Date: 12/03/21 Status: Orderedglipizide-metformin 5 mg-500 mg oral tablet 2 tablet, By Mouth, 2 times a day, DIABETES, # 60 tablet, 2 Refills, Maintenance, 08/30/21 7:52:00 EDT, Tablet, [facility]/pharmacy #207, 2 tablet By Mouth 2 times [...] tablet, 2 Refills, Maintenance, 08/30/21 7:52:00 EDT, [facility]/pharmacy #207, please cancel lisinopril, 1 tablet By [...] 2 Refills, Maintenance, 08/30/21 7:52:00 EDT, Powder, [facility]/pharmacy #[id number], 160.02, cm, 08/26/21 10:47:00 EDT, Height Start Date: 08/30/21 Status: OrderedLantus Solostar Pen 100 units/mL subcutaneous solution = 10 units, Subcutaneous Injection, Daily at bedtime, # 15 mL, 1 Refills, Maintenance, 09/20/21 8:37:00 EDT, Solution, [facility]/pharmacy #[id number], Partial fill upon patient request if the prescription is for aschedule II opioid drug., 160.02, cm, 09/17/21 8:... Start Date: 09/20/21 Status: Orderedmontelukast 10 mg oral tablet 1, tablet, By Mouth, Daily in PM, Disregard previous script, # 30 tablet, Refills 1, Tot. Refills 1,01/03/22 10:14:00 EDT, Route to Pharmacy Electronically, [facility]/pharmacy #[id number], 160.02, cm, 12/28/21 11:08:00 EDT, Height Start Date: 01/03/22 Status: OrderedNebulizer mask and tubing Nebulizer mask and tubing, See Instructions, # 1 each, Refills 0, Tot. Refills 0, Maintenance, Dx: Asthma J44.9. To be used with albuterol, 12/17/19 10:33:00 EDT, Compound Start Date: 12/17/19 Status: OrderedPen [place], 31 G x 5 mm BD Ultra [...]
--- OUTSIDE RECORDS SUMMARY | 2022-04-30 23:01 | XMS_ITS | Continuity of Care Document ---
:1970 Author Organization [facility] Address [address] [place] [address]- Care Team Providers Name Role Phone Genevieve MORA, Danica Primary [id number] Date(s): 01/04/22 - 02/10/22 [facility] [address] [place], [place] [address] Attending Physician: Danica Vallejo NP Allergies, [...] 08/30/21 7:52:00 EDT, [id number] Partial fill upon patient request if the prescription is for a schedule II opioid drug.... Start Date: 08/30/21 Status: OrderedAspirin Enteric Coated 81 mg oral delayed release tablet 1 tablet = 81 mg, By Mouth, Daily, # 30 tablet, 5 Refills, Maintenance, 08/30/21 7:52:00 EDT, [facility]/pharmacy #[id number], 160.02, cm, 08/26/21 10:47:00 EDT, Height Start Date: 08/30/21 Stop Date: 02/26/22 Status: Orderedatorvastatin 10 mg oral tablet 1 tablet = 10 mg, By Mouth, Daily, Cholesterol medication, # 30 tablet, 2 Refills, Maintenance, 08/30/21 7:52:00 EDT, [facility]/pharmacy #[id number], 160.02, cm, 08/26/21 10:47:00 [...] 01/27/22 17:47:00 EDT, Route to Pharmacy Electronically, [facility]/pharmacy #207, 160.02, cm, 12/28/21 11:08:00 EDT, Height Start Date: 01/27/22 Status: Orderedglipizide-metformin 5 mg-500 mg oral tablet 2 tablet, By Mouth, 2 times a day, DIABETES, # 60 tablet, 2 Refills, Maintenance, 08/30/21 7:52:00 EDT, Tablet, [facility]/pharmacy #207, 2 tablet By Mouth [...] tablet, 2 Refills, Maintenance, 08/30/21 7:52:00 EDT, [facility]/pharmacy #207, please cancel lisinopril, 1 [...] 2 Refills, Maintenance, 08/30/21 7:52:00 EDT, Powder, [facility]/pharmacy #207, 160.02, cm, 08/26/21 10:47:00 EDT, Height Start Date: 08/30/21 Status: OrderedLantus Solostar Pen 100 units/mL subcutaneous solution = 10 units, Subcutaneous Injection, Daily at bedtime, # 15 mL, 1 Refills, Maintenance, 09/20/21 8:37:00 EDT, Solution, [facility]/pharmacy #[id number], Partial fill upon patient request if the prescription is for aschedule II opioid drug., 160.02, cm, 09/17/21 8:... Start Date: 09/20/21 Status: OrderedLeft Offloading shoe with insole Left [...] 10:33:00 EDT, Compound Start Date: 12/17/19 Status: OrderedoxyCODONE 5 mg oral tablet 5 mg, 1, tablet, By Mouth, 3 times a day, PRN, for 7 days, Can take with a Tylenol as needed for pain, # 21 tablet, Refills 0, Tot. Refills 0, Acute 02/14/22 10:39:00 EDT, Pain , Moderate, 02/07/22 10:39:00 EDT, Route to Pharmacy Electronically, [facility]/p... Start Date: 02/07/22 Stop Date: 02/14/22 Status: OrderedPen [place], 31 G x 5 mm BD Ultra [...] 02/01/22 16:36:00 EDT, Route to Pharmacy Electronically, [id number], [facility]/pharmacy #[id number], 160.02... Start Date: [...] Care Team PersonnelName: Danica Vallejo NP Address: [address] [place] [address]
--- OUTSIDE RECORDS SUMMARY | 2022-04-30 23:01 | XMS_ITS | Continuity of Care Document ---
:[address] [facility] Address [address] [place] [address]- Care Team Providers Name Role Phone Genevieve MORA, Danica Primary Care Physician Encounter [facility] Date(s): 09/01/21 - 10/01/21 [facility] [address] [place], [place] [address] Allergies, Adverse [...] 08/30/21 7:52:00 EDT, Route to Pharmacy Electronically, [facility]/pharmacy #[id number], Partial fill upon patient request if the prescription is for a schedule II opioid drug.... Start Date: 08/30/21 Status: OrderedAspirin Enteric Coated 81 mg oral delayed release tablet 1 tablet = 81 mg, By Mouth, Daily, # 30 tablet, 5 Refills, Maintenance, 08/30/21 7:52:00 EDT, [facility]/pharmacy #[id number], 160.02, cm, 08/26/21 10:47:00 EDT, Height Start Date: 08/30/21 Stop Date: 02/26/22 Status: Orderedatorvastatin 10 mg oral tablet 1 tablet = 10 mg, By Mouth, Daily, Cholesterol medication, # 30 tablet, 2 Refills, Maintenance, 08/30/21 7:52:00 EDT, [facility]/pharmacy #[id number], 160.02, cm, 08/26/21 10:47:00 [...] 07/30/21 11:08:00 EST, Route to Pharmacy Electronically, [facility]/pharmacy #[id number], 160.02, cm, 11/22/19 13:52:00 EDT, Height Start Date: 07/30/21 Status: Orderedglipizide-metformin 5 mg-500 mg oral tablet 2 tablet, By Mouth, 2 times a day, DIABETES, # 60 tablet, 2 Refills, Maintenance, 08/30/21 7:52:00 EDT, Tablet, [facility]/pharmacy #[id number], 2 tablet By Mouth [...] tablet, 2 Refills, Maintenance, 08/30/21 7:52:00 EDT, [facility]/pharmacy #207, please cancel lisinopril, 1 tablet By Mouth Daily,Instr:NEW BLOOD PRESSURE MEDICATION, 160.02, cm, 08/26/21 10:47:... Start Date: 08/30/21 Status: OrderedIncruse Ellipta 62.5 mcg/inh inhalation powder 1 each, Inhalation, Every 24 hours, doses should be taken at least 24 hours apart, # 30 each, 2 Refills, Maintenance, 08/30/21 7:52:00 EDT, Powder, [facility]/pharmacy #[id number], 160.02, cm, 08/26/21 10:47:00 EDT, Height Start Date: 08/30/21 Status: OrderedLantus Solostar Pen 100 units/mL subcutaneous solution = 10 units, Subcutaneous Injection, Daily at bedtime, # 15 mL, 1 Refills, Maintenance, 09/20/21 8:37:00 EDT, Solution, [facility]/pharmacy #[id number], Partial fill upon patient request if the prescription is for aschedule II opioid drug., 160.02, cm, 09/17/21 8:... Start Date: 09/20/21 Status: OrderedNebulizer mask and tubing Nebulizer mask and tubing, See Instructions, # 1 each, Refills 0, Tot. Refills 0, Maintenance, Dx: Asthma J44.9. To be used with albuterol, 12/17/19 10:33:00 EDT, Compound Start Date: 12/17/19 Status: OrderedPen Hunt, 31 G x 5 mm BD Ultra [...] 08/30/21 7:52:00 EDT, Route to Pharmacy Electronically, [facility]/pharmacy #[id number], 160.02, cm, 08/26/21 10:47:00 [...]
--- OUTSIDE RECORDS SUMMARY | 2022-04-30 23:01 | XMS_ITS | Continuity of Care Document ---
:1970 Author Organization [facility] Address [address] [place] [address]- Care Team Providers Name Role Phone Medina Moss MD Primary Care Physician Encounter [facility] Date(s): 11/13/20 - 11/20/20 [facility] [address] [place], [place] [address] Attending Physician: Medina Moss MD [...] tablet, 5 Refills, Maintenance, 11/13/20 9:29:00 EDT, [facility]/pharmacy #[id number], 160.02, cm, 11/22/19 13:52:00 EDT, Height, [...] 3 Refills, Maintenance, 03/24/20 14:26:00 EDT, Tablet, [facility]/pharmacy #[id number], 160.02, cm, 11/22/19 13:52:00 EDT, Height, 74, kg, 01/04/19 9:01:00 EDT, Dry Weight Start Date: 03/24/20 Status: Orderedfluconazole 150 mg oral tablet 1 tablet = 150 mg, By Mouth, Once, Repeat dose if still having symptoms in 72 hours, # 2 tablet, 0 Refills, Soft Stop, 11/13/20 9:32:00 EDT, Tablet, [facility]/pharmacy #[id number], Partial fill upon patient request [...] 11/13/20 9:29:00 EDT, Route to Pharmacy Electronically, [facility]/pharmacy #207, 160.02, cm, 11/22/19 13:52:00 EDT, Height, 74, kg, 01/04/19 9:01:00 EDT,... Start Date: 11/13/20 Status: Orderedglipizide-metformin 5 mg-500 mg oral tablet 2 tablet, By Mouth, 2 times a day, DIABETES, # 60 tablet, 5 Refills, Maintenance, 11/13/20 9:30:00 EDT, Tablet, [facility]/pharmacy #[id number], 2 tablet By Mouth 2 [...] tablet, 5 Refills, Maintenance, 11/13/20 9:30:00 EDT, [facility]/pharmacy #207, please cancel lisinopril, 1 tablet By Mouth Daily,Instr:NEW BLOOD PRESSURE MEDICATION, 160.02, cm, 11/22/19 13:52:... Start Date: 11/13/20 Status: OrderedIncruse Ellipta 62.5 mcg/inh inhalation powder 1 each, Inhalation, Every 24 hours, doses should be taken at least 24 hours apart, # 30 each, 5 Refills, Maintenance, 11/13/20 9:30:00 EDT, Powder, [facility]/pharmacy #207, 160.02, cm, 11/22/19 13:52:00 EDT, Height, [...] 10/05/20 16:18:00 EDT, Route to Pharmacy Electronically, [id number], [facility]/pharmacy #207, 160.02... Start Date: 10/05/20 Stop Date: 07/02/21 Status: OrderedSingulair 10 mg oral tablet 10 mg, 1, tablet, By Mouth, Daily in PM, ASTHMA, # 30 tablet, Refills 5, Tot. Refills 5, Maintenance, 11/13/20 9:29:00 EDT, Route to Pharmacy Electronically, [facility]/pharmacy #[id number], 160.02, cm, 11/22/19 13:52:00 EDT, Height, [...]
--- OUTSIDE RECORDS SUMMARY | 2022-04-30 23:01 | XMS_ITS | Continuity of Care Document ---
:1970 Author Organization [facility] Address [address] [place] [address]- Care Team Providers Name Role Phone Medina Moss MD Primary Care Physician Encounter [facility] Date(s): 06/24/19 - 10/11/19 [facility] [address] [place] [address]- [facility] Attending Physician: Medina Moss MD [...] Maintenance, 07/09/2014:23:00 EST, Route to Pharmacy Electronically, [id number], [facility]/pharmacy #[id number], 160.02, cm, 01/04/19 9:01:00 EDT, Height, [...] tablet, 2 Refills, Maintenance, 07/24/19 19:22:00 EST, [facility]/pharmacy #[id number], 160.02, cm, 01/04/19 9:01:00 EDT, Height, [...] 06/25/19 14:07:00 EST, Route to Pharmacy Electronically, [facility]/pharmacy #[id number], note dose increase, 160.02, cm, 01/04/19 [...] 07/24/19 19:22:00 EST, Route to Pharmacy Electronically, [facility]/pharmacy #[id number], Appt required for further refills, 160.02, cm, 01/04/19 9:01:00 EDT, H... Start Date: 07/24/19 Status: OrderedSingulair 10 mg oral tablet 10 mg, 1, tablet, By Mouth, Daily in PM, ASTHMA, # 30 tablet, Refills 5, Tot. Refills 5, Maintenance, 01/04/19 9:33:06 EDT, Route to Pharmacy Electronically, [id number], [facility]/pharmacy #[id number] Start Date: 01/04/19 Status: Ordered Problem List [...]
--- OUTSIDE RECORDS SUMMARY | 2022-04-30 23:02 | XMS_ITS | Continuity of Care Document ---
:[address] [facility] Address [address] [place] [address]- Care Team Providers Name Role Phone Danica Vallejo NP Primary Care Physician Encounter [facility] Date(s): 08/26/21 - 09/02/21 [facility] [address] [place], [place] [address] Encounter Diagnosis Osteomyelitis of toe (Discharge Diagnosis) - 08/26/21 COPD with asthma (Discharge Diagnosis) - 08/26/21 Type 2 Diabetes Mellitus with peripheral neuropathy (Discharge Diagnosis) - 08/26/21 Encounter for smoking cessation counseling (Discharge Diagnosis) - 08/26/21 Attending Physician: Danica Vallejo NP Allergies, Adverse [...] 7:52:00 EDT, Route to Pharmacy Electronically, [facility]/pharmacy #[id number], Partial fill upon patient request if the prescription is for a schedule II opioid drug.... Start Date: 08/30/21 Status: OrderedAspirin Enteric Coated 81 mg oral delayed release tablet 1 tablet = 81 mg, By Mouth, Daily, # 30 tablet, 5 Refills, Maintenance, 08/30/21 7:52:00 EDT, [facility]/pharmacy #[id number], 160.02, cm, 08/26/21 10:47:00 EDT, Height Start Date: 08/30/21 Stop Date: 02/26/22 Status: Orderedatorvastatin 10 mg oral tablet 1 tablet = 10 mg, By Mouth, Daily, Cholesterol medication, # 30 tablet, 2 Refills, Maintenance, 08/30/21 7:52:00 EDT, [facility]/pharmacy #[id number], 160.02, cm, 08/26/21 10:47:00 [...] 07/30/21 11:08:00 EST, Route to Pharmacy Electronically, [facility]/pharmacy #207, 160.02, cm, 11/22/19 13:52:00 EDT, Height Start Date: 07/30/21 Status: Orderedglipizide-metformin 5 mg-500 mg oral tablet 2 tablet, By Mouth, 2 times a day, DIABETES, # 60 tablet, 2 Refills, Maintenance, 08/30/21 7:52:00 EDT, Tablet, [facility]/pharmacy #207, 2 tablet By Mouth 2 times [...] 2 Refills, Maintenance, 08/30/21 7:52:00 EDT, [facility]/pharmacy #207, please cancel lisinopril, 1 tablet By Mouth Daily,Instr:NEW BLOOD PRESSURE MEDICATION, 160.02, cm, 08/26/21 10:47:... Start Date: 08/30/21 Status: OrderedIncruse Ellipta 62.5 mcg/inh inhalation powder 1 each, Inhalation, Every 24 hours, doses should be taken at least 24 hours apart, # 30 each, 2 Refills, Maintenance, 08/30/21 7:52:00 EDT, Powder, [facility]/pharmacy #207, 160.02, cm, 08/26/21 10:47:00 EDT, Height [...] 09/13/21 8:01:00 EDT, 08/30/21 8:01:00 EDT, Patch, [facility]/pharmacy #[id number], Partial fill upon patient req... Start Date: 08/30/21 Stop Date: 09/13/21 Status: OrderedSingulair 10 mg oral tablet 10 mg, 1, tablet, By Mouth, Daily in PM, ASTHMA, # 30 tablet, Refills 2, Tot. Refills 2, Maintenance, 08/30/21 7:52:00 EDT, Route to Pharmacy Electronically, [facility]/pharmacy #[id number], 160.02, cm, 08/26/21 10:47:00 EDT, Height Start Date: 08/30/21 Status: Ordered Problem List Condition Effective Dates Status Health Status Informant COPD with asthma(Confirmed) Active Type 2 Diabetes Mellitus with Active peripheral neuropathy(Confirmed) Family history of early CAD(Confirmed) Active Hypertension(Confirmed) Active Obese class I(Confirmed) Active Tobacco use(Confirmed) Active Diagnosis Diagnosis Type Effective Dates Health Clinical Infor mant Status Service Osteomyelitis of Discharge 08/26/21 toe Diagnosis COPD with asthma Discharge 08/26/21 Diagnosis Type 2 Diabetes Discharge 08/26/21 Mellitus with Diagnosis peripheral neuropathy Encounter for Discharge 08/26/21 smoking cessation Diagnosis counseling Vital Signs Most recent to oldest [Reference Range]: 1 2 Height 160.02 cm 160.02 cm (08/26/21 10:47 AM) (08/26/21 10:39 AM) Weight 78.0 kg (08/26/21 10:39 AM) Oxygen Saturation [94-100 %] 98 % 98 % (08/26/21 10:47 AM) (08/26/21 10:39 AM) Pulse Rate [55-90 bpm] 107 bpm 107 bpm *H* *H* (08/26/21 10:47 AM) (08/26/21 10:39 AM) Body Mass Index [18.5-24.99] 30.46 *>HHI* (08/26/21 10:39 AM) Blood Pressure [90-138/55-84 mm Hg] 166/90 mm Hg 162/ 94 mm Hg *H* *H* (08/26/21 10:47 AM) (08/26/21 10:39 AM) Mode of Delivery (Oxygen) Room air Room air (08/26/21 10:47 AM) (08/26/21 10:39 AM) Blood pressure sites Arm, left Arm, left (08/26/21 10:47 AM) (08/26/21 10:39 AM) Weight Obtained Via Standing scale (08/26/21 10:39 AM) Social History Social History Type Response Smoking Status Current every day smoker; To bacco user in household: Yes; Type: Cigarettes; Other: more than 5 a day; entered on: 12/28/16 Sex
--- OUTSIDE RECORDS SUMMARY | 2022-04-30 23:02 | XMS_ITS | Continuity of Care Document ---
:1970 Author Organization [facility] Address [address] [place] [address]- Care Team Providers Name Role Phone Genevieve MORA, Danica Primary Care Physician Encounter [facility] Date(s): 11/03/21 - 12/03/21 [facility] [address] [place], [place] [address] Allergies, Adverse Reactions, Alerts Substance Reaction [...] 08/30/21 7:52:00 EDT, Route to Pharmacy Electronically, [facility]/pharmacy #[id number], Partial fill upon patient request if the prescription is for a schedule II opioid drug.... Start Date: 08/30/21 Status: OrderedAspirin Enteric Coated 81 mg oral delayed release tablet 1 tablet = 81 mg, By Mouth, Daily, # 30 tablet, 5 Refills, Maintenance, 08/30/21 7:52:00 EDT, [facility]/pharmacy #[id number], 160.02, cm, 08/26/21 10:47:00 EDT, Height Start Date: 08/30/21 Stop Date: 02/26/22 Status: Orderedatorvastatin 10 mg oral tablet 1 tablet = 10 mg, By Mouth, Daily, Cholesterol medication, # 30 tablet, 2 Refills, Maintenance, 08/30/21 7:52:00 EDT, [facility]/pharmacy #[id number], 160.02, cm, 08/26/21 10:47:00 EDT, [...] 12/03/21 16:03:00 EDT, Route to Pharmacy Electronically, [facility]/pharmacy #[id number], 160.02, cm, 09/21/21 11:48:00 EDT, Height Start Date: 12/03/21 Status: Orderedglipizide-metformin 5 mg-500 mg oral tablet 2 tablet, By Mouth, 2 times a day, DIABETES, # 60 tablet, 2 Refills, Maintenance, 08/30/21 7:52:00 EDT, Tablet, [facility]/pharmacy #207, 2 tablet By Mouth 2 [...] tablet, 2 Refills, Maintenance, 08/30/21 7:52:00 EDT, [facility]/pharmacy #207, please cancel lisinopril, 1 tablet By Mouth Daily,Instr:NEW BLOOD PRESSURE MEDICATION, 160.02, cm, 08/26/21 10:47:... Start Date: 08/30/21 Status: OrderedIncruse Ellipta 62.5 mcg/inh inhalation powder 1 each, Inhalation, Every 24 hours, doses should be taken at least 24 hours apart, # 30 each, 2 Refills, Maintenance, 08/30/21 7:52:00 EDT, Powder, [facility]/pharmacy #207, 160.02, cm, 08/26/21 10:47:00 EDT, [...] EDT, Compound Start Date: 12/17/19 Status: OrderedPen Wittmann, 31 G x 5 mm BD Ultra [...] 08/30/21 7:52:00 EDT, Route to Pharmacy Electronically, [facility]/pharmacy #[id number], 160.02, cm, 08/26/21 10:47:00 EDT, [...]
--- OUTSIDE RECORDS SUMMARY | 2022-04-30 23:02 | XMS_ITS | Continuity of Care Document ---
:[address] [facility] [place] [facility] Address [address] [place] [address]- Care Team Providers Name Role Phone Genevieve MORA, Danica Primary Care Physician [id number]): [facility]/16/21 - 06/23/[address] [facility] [place] [facility] [address] [place] [address]- Encounter Diagnosis Asthma exacerbation (Discharge Diagnosis) - 06/16/21 Attending Physician: Danica Vallejo NP Allergies, Adverse [...] 5 Refills, Maintenance, 08/14/20 13:09:00 EST, Solution, [facility]/pharmacy #[id number], 160.02, cm, 11/22/19 13:52:00 EDT, [...] Refills, Maintenance, 11/13/20 9:29:00 EDT, [facility]/pharmacy #[id number], 160.02, cm, 11/22/19 13:52:00 EDT, Height, 74, kg, 01/04/19 9:01:00 EDT, Dry Weight Start Date: 11/13/20 Stop Date: 05/12/21 Status: Orderedatorvastatin 10 mg oral tablet 1 tablet = 10 mg, By Mouth, Daily, Cholesterol medication, # 30 tablet, 5 Refills, Maintenance, 11/13/20 9:29:00 EDT, [facility]/pharmacy #[id number], 160.02, cm, 11/22/19 13:52:00 EDT, Height, 74, kg, 01/04/19 9:01:00 EDT, Dry Weight Start Date: 11/13/20 Status: OrderedBydureon Pen 2 mg subcutaneous injection, extended release See Instructions, INJECT 2 MG BY SUBCUTANEOUS INFUSION EVERY 7 DAYS, # 4 Unknown, 5 Refills, 11/13/20 9:28:00 EDT, [facility]/pharmacy #[id number], 160.02, cm, 11/22/19 13:52:00 EDT, Height, 74, kg, 01/04/19 9:01:00 EDT, Dry Weight Start Date: 11/13/20 Status: Orderedcyclobenzaprine 5 mg oral tablet 1 tablet = 5 mg, By Mouth, 3 times a day, PRN Spasm, # 40 tablet, 3 Refills, Maintenance, 03/24/20 14:26:00 EDT, Tablet, [facility]/pharmacy #207, 160.02, cm, 11/22/19 13:52:00 EDT, Height, 74, kg, 01/04/19 9:01:00 EDT, Dry Weight Start Date: 03/24/20 Status: Orderedfluconazole 150 mg oral tablet 1 tablet = 150 mg, By Mouth, Once, Repeat dose if still having symptoms in 72 hours, # 2 tablet, 0 Refills, Soft Stop, 11/13/20 9:32:00 EDT, Tablet, [facility]/pharmacy #207, Partial fill upon patient request if [...] 05/20/21 15:41:00 EST, Route to Pharmacy Electronically, [facility]/pharmacy #[id number], 160.02, cm, 11/22/19 13:52:00 EDT, Height Start Date: 05/20/21 Status: Orderedglipizide-metformin 5 mg-500 mg oral tablet 2 tablet, By Mouth, 2 times a day, DIABETES, # 60 tablet, 5 Refills, Maintenance, 11/13/20 9:30:00 EDT, Tablet, [facility]/pharmacy #207, 2 tablet By Mouth 2 times [...] Refills, Maintenance, 11/13/20 9:30:00 EDT, [facility]/pharmacy #[id number], please cancel lisinopril, 1 tablet By Mouth Daily,Instr:NEW BLOOD PRESSURE MEDICATION, 160.02, cm, 11/22/19 13:52:... Start Date: 11/13/20 Status: OrderedIncruse Ellipta 62.5 mcg/inh inhalation powder 1 each, Inhalation, Every 24 hours, doses should be taken at least 24 hours apart, # 30 each, 5 Refills, Maintenance, 11/13/20 9:30:00 EDT, Powder, [facility]/pharmacy #[id number], 160.02, cm, 11/22/19 13:52:00 EDT, [...] 10/05/20 16:18:00 EDT, Route to Pharmacy Electronically, [id number], [facility]/pharmacy #[id number], 160.02... Start Date: 10/05/20 Stop Date: 07/02/21 Status: OrderedSingulair 10 mg oral tablet 10 mg, 1, tablet, By Mouth, Daily in PM, ASTHMA, # 30 tablet, Refills 5, Tot. Refills 5, Maintenance, 11/13/20 9:29:00 EDT, Route to Pharmacy Electronically, [facility]/pharmacy #[id number], 160.02, cm, 11/22/19 13:52:00 EDT, Height, 74, kg, 01/04/19 9:01:00 EDT,... Start Date: 11/13/20 Status: Ordered Problem List Condition Effective Dates Status Health Status Informant COPD with asthma(Confirmed) Active Type 2 Diabetes Mellitus with Active peripheral neuropathy(Confirmed) Family history of early CAD(Confirmed) Active Hypertension(Confirmed) Active Tobacco use(Confirmed) Active Diagnosis Diagnosis Type Effective Dates Health Clinical Infor mant Status Service Asthma exacerbation Discharge 06/16/21 Diagnosis Social History Social History Type Response Smoking Status Current every day smoker; To bacco user in household: Yes; Type: Cigarettes; Other: more than 5 a day; entered on: 12/28/16 Sex
--- OUTSIDE RECORDS SUMMARY | 2022-04-30 23:02 | XMS_ITS | Continuity of Care Document ---
:1970 Author Organization [facility] Address [address] [place] [address]- Care Team Providers Name Role Phone Isa CISNEROS, Medina Primary Care Physician Encounter [facility] Date(s): 09/29/20 - 10/29/20 [facility] [address] [place], [place] [address] Allergies, Adverse Reactions, Alerts Substance Reaction Severity Status penicillin Hives Active Immunizations Given and Recorded Vaccine Date Status Refusal Reason SARS-CoV-2 (COVID-19) [id number] vaccine 10/11/20 Recorded Medications Advair HFA 115 [...] 5 Refills, Maintenance, 09/21/20 12:16:00 EDT, [facility]/pharmacy #[id number], 160.02, cm, 11/22/19 13:52:00 EDT, Height, 74, kg, 01/04/19 9:01:00 EDT, Dry Weight Start Date: 09/21/20 Stop Date: 03/20/21 Status: Orderedatorvastatin 10 mg oral tablet 1 tablet = 10 mg, By Mouth, Daily, Cholesterol medication, # 30 tablet, 5 Refills, Maintenance, 09/21/20 12:16:00 EDT, [facility]/pharmacy #[id number], 160.02, cm, 11/22/19 13:52:00 EDT, Height, 74, kg, 01/04/19 9:01:00 EDT, Dry Weight Start Date: 09/21/20 Status: OrderedBydureon Pen 2 mg subcutaneous injection, extended release See Instructions, INJECT 2 MG BY SUBCUTANEOUS INFUSION EVERY 7 DAYS, # 4 Unknown, 5 Refills, 09/21/20 12:16:00 EDT, [facility]/pharmacy #[id number], 160.02, cm, 11/22/19 13:52:00 EDT, Height, 74, kg, 01/04/19 9:01:00 EDT, Dry Weight Start Date: 09/21/20 Status: Orderedcyclobenzaprine 5 mg oral tablet 1 tablet = 5 mg, By Mouth, 3 times a day, PRN Spasm, # 40 tablet, 3 Refills, Maintenance, 03/24/20 14:26:00 EDT, Tablet, [facility]/pharmacy #[id number], 160.02, cm, 11/22/19 13:52:00 EDT, Height, [...] 12:16:00 EDT, Route to Pharmacy Electronically, [facility]/pharmacy #207, 160.02, cm, 11/22/19 13:52:00 EDT, Height, 74, kg, 01/04/19 9:01:00 EDT,... Start Date: 09/21/20 Status: Orderedglipizide-metformin 5 mg-500 mg oral tablet 2 tablet, By Mouth, 2 times a day, DIABETES, # 60 tablet, 5 Refills, Maintenance, 09/21/20 12:16:00 EDT, Tablet, [facility]/pharmacy #207, [...] 5 Refills, Maintenance, 07/01/20 17:14:00 EST, [facility]/pharmacy #[id number], please cancel lisinopril, 1 tablet By Mouth Daily,Instr:NEW BLOOD PRESSURE MEDICATION, 160.02, cm, 11/22/19 13:52... Start Date: 07/01/20 Status: OrderedIncruse Ellipta 62.5 mcg/inh inhalation powder 1 each, Inhalation, Every 24 hours, doses should be taken at least 24 hours apart, # 30 each, 5 Refills, Maintenance, 09/21/20 12:17:00 EDT, Powder, [facility]/pharmacy #[id number], 160.02, cm, 11/22/19 13:52:00 EDT, Height, [...] 10/05/20 16:18:00 EDT, Route to Pharmacy Electronically, [id number], [facility]/pharmacy #[id number], 160.02... Start Date: 10/05/20 Stop Date: 07/02/21 Status: OrderedSingulair 10 mg oral tablet 10 mg, 1, tablet, By Mouth, Daily in PM, ASTHMA, # 30 tablet, Refills 11, Tot. Refills 11, Maintenance, 03/24/20 14:19:00 EDT, Route to Pharmacy Electronically, [facility]/pharmacy #[id number], 160.02, cm, 11/21/2012:52:00 EDT, Height, 74, [...]
--- OUTSIDE RECORDS SUMMARY | 2022-04-30 23:02 | XMS_ITS | Continuity of Care Document ---
:[address] [facility] Address [address] [place] [address]- Care Team Providers Name Role Phone Medina Moss MD Primary Care Physician En[place] [facility] [place] Date(s): 12/17/19 - 12/24/19 [facility] [address] [place] [address]- [facility] Attending Physician: Medina Moss MD Allergies, Adverse [...] tablet, 5 Refills, Maintenance, 10/29/19 13:46:00 EDT, [facility]/pharmacy #[id number], 160.02, cm, 01/04/19 9:01:00 EDT, Height, 74, kg, 01/04/19 9:01:00 EDT, Dry Weight Start Date: 10/29/19 Stop Date: 04/26/20 Status: Orderedatorvastatin 10 mg oral tablet 1 tablet = 10 mg, By Mouth, Daily, Cholesterol medication, # 30 tablet, 5 Refills, Maintenance, 10/30/19 12:11:00 EDT, [facility]/pharmacy #[id number], 160.02, cm, 10/30/19 9:28:00 EDT, Height, 74, kg, 01/04/19 9:01:00 EDT, Dry Weight Start Date: 10/30/19 Status: OrderedBydureon Pen 2 mg subcutaneous injection, extended release See Instructions, INJECT 2 MG BY SUBCUTANEOUS INFUSION EVERY 7 DAYS, # 4 Unknown, 5 Refills, Maintenance, [facility] STORE [id number], 160.02, cm, 10/30/19 9:28:00 EDT, Height, 74, kg, 01/04/19 9:01:00 EDT, Dry Weight Start Date: 10/30/19 Status: Orderedcyclobenzaprine 5 mg oral tablet 1 tablet = 5 mg, By Mouth, 3 times a day, PRN Spasm, # 40 tablet, 3 Refills, Maintenance, 10/30/19 12:12:00 EDT, Tablet, [facility]/pharmacy #[id number], 160.02, cm, 10/30/19 9:28:00 EDT, [...] 10/30/19 12:12:00 EDT, Route to Pharmacy Electronically, [facility]/pharmacy #[id number], 160.02, cm, 10/30/19 9:28:00 EDT, Height, 74, kg, 01/04/19 9:01:00 EDT,... Start Date: 10/30/19 Status: Orderedglipizide-metformin 5 mg-500 mg oral tablet 2 tablet, By Mouth, 2 times a day, DIABETES, # 60 tablet, 5 Refills, Maintenance, 10/30/19 12:13:00 EDT, Tablet, [facility]/pharmacy #[id number], 2 tablet By Mouth 2 times a day,Instr:DIABETES, 160.02, cm, 209:28:00 EDT, Height, 74, kg, 01/04/19 9:01:00 EDT... Start Date: 10/30/19 Status: Orderedlisinopril 10 mg oral tablet 10 mg, 1, tablet, By Mouth, Daily, BLOOD PRESSURE, # 30 tablet, Refills 5, Tot. Refills 5, Maintenance, 10/30/19 12:13:00 EDT, Route to Pharmacy Electronically, [facility]/pharmacy #[id number], Appt required for further refills, [...] Replace Required Details, Route to Pharmacy Electronically, [id number], [facility] Start Date: 10/29/19 Status: OrderedSingulair 10 mg oral tablet 10 mg, 1, tablet, By Mouth, Daily in PM, ASTHMA, # 30 tablet, Refills 5, Tot. Refills 5, Maintenance, 10/30/19 12:07:00 EDT, Route to Pharmacy Electronically, [facility]/pharmacy #[id number], 160.02, cm, 10/30/19 9:28:00 EDT, [...]
--- OUTSIDE RECORDS SUMMARY | 2022-04-30 23:02 | XMS_ITS | Continuity of Care Document ---
:1970 Author Organization [facility] Address [address] [place] [address]- Care Team Providers Name Role Phone Danica Vallejo NP Primary Care Physician [place] [facility] [place] 09/16/21 - 10/17/21 [facility] [address] [place], [place] [address] Attending Physician: Danica Vallejo NP Referring Physician: Not on Staff, Referring MD [...] 08/30/21 7:52:00 EDT, Route to Pharmacy Electronically, [facility]/pharmacy #[id number], Partial fill upon patient request if the prescription is for a schedule II opioid drug.... Start Date: 08/30/21 Status: OrderedAspirin Enteric Coated 81 mg oral delayed release tablet 1 tablet = 81 mg, By Mouth, Daily, # 30 tablet, 5 Refills, Maintenance, 08/30/21 7:52:00 EDT, [facility]/pharmacy #207, 160.02, cm, 08/26/21 10:47:00 EDT, Height Start Date: 08/30/21 Stop Date: 02/26/22 Status: Orderedatorvastatin 10 mg oral tablet 1 tablet = 10 mg, By Mouth, Daily, Cholesterol medication, # 30 tablet, 2 Refills, Maintenance, 08/30/21 7:52:00 EDT, [facility]/pharmacy #2070, 160.02, cm, 08/26/21 [...] 07/30/21 11:08:00 EST, Route to Pharmacy Electronically, [facility]/pharmacy #[id number], 160.02, cm, 11/22/19 13:52:00 EDT, Height Start Date: 2/18/22 Status: Orderedglipizide-metformin 5 mg-500 mg oral tablet [...] EDT, Compound Start Date: 12/17/19 Status: OrderedPen [place], 31 G x 5 mm BD Ultra [...] 08/30/21 7:52:00 EDT, Route to Pharmacy Electronically, [facility]/pharmacy #[id number], 160.02, cm, 08/26/21 [...]
--- OUTSIDE RECORDS SUMMARY | 2022-04-30 23:02 | XMS_ITS | Continuity of Care Document ---
:1970 Author Organization [facility] Address [address] [place] [address]- Care Team Providers Name Role Phone Isa CISNEROS, Medina Primary Care Physician [place] [facility] [place] 10[place] - 11[place]20 [facility] [address] [place], [place] [address] Attending Physician: AdmMitul miller Admitting Physician: Admtr, Prince8 Referring Physician: Admtr, Ar8 Allergies, Adverse Reactions, Alerts Substance Reaction Severity Status penicillin Hives Active Immunizations Given and Recorded Vaccine Date Status Refusal Reason SARS-CoV-2 (COVID-19) mRNA-1273 vaccine 10/11/20 Recorded Medications [...] tablet, 5 Refills, Maintenance, 09/21/20 12:16:00 EDT, [facility]/pharmacy #[id number], 160.02, cm, 11/22/19 13:52:00 EDT, Height, 74, kg, 01/04/19 9:01:00 EDT, Dry Weight Start Date: 09/21/20 Stop Date: 03/20/21 Status: Orderedatorvastatin 10 mg oral tablet 1 tablet = 10 mg, By Mouth, Daily, Cholesterol medication, # 30 tablet, 5 Refills, Maintenance, 09/21/20 12:16:00 EDT, [facility]/pharmacy #[id number], 160.02, cm, 11/22/19 13:52:00 EDT, Height, 74, kg, 01/04/19 9:01:00 EDT, Dry Weight Start Date: 09/21/20 Status: OrderedBydureon Pen 2 mg subcutaneous injection, extended release See Instructions, INJECT 2 MG BY SUBCUTANEOUS INFUSION EVERY 7 DAYS, # 4 Unknown, 5 Refills, 09/21/20 12:16:00 EDT, [facility]/pharmacy #[id number], 160.02, cm, 11/22/19 13:52:00 EDT, Height, 74, kg, 01/04/19 9:01:00 EDT, Dry Weight Start Date: 09/21/20 Status: Orderedcyclobenzaprine 5 mg oral tablet 1 tablet = 5 mg, By Mouth, 3 times a day, PRN Spasm, # 40 tablet, 3 Refills, Maintenance, 03/24/20 14:26:00 EDT, Tablet, [facility]/pharmacy #[id number], 160.02, cm, 11/22/19 13:52:00 [...] 09/21/20 12:16:00 EDT, Route to Pharmacy Electronically, [facility]/pharmacy #207, 160.02, cm, 11/22/19 13:52:00 EDT, Height, 74, kg, 01/04/19 9:01:00 EDT,... Start Date: 09/21/20 Status: Orderedglipizide-metformin 5 mg-500 mg oral tablet 2 tablet, By Mouth, 2 times a day, DIABETES, # 60 tablet, 5 Refills, Maintenance, 09/21/20 12:16:00 EDT, Tablet, [facility]/pharmacy #[id number], 2 tablet By Mouth [...] tablet, 5 Refills, Maintenance, 07/01/20 17:14:00 EST, [facility]/pharmacy #[id number], please cancel lisinopril, 1 tablet By Mouth Daily,Instr:NEW BLOOD PRESSURE MEDICATION, 160.02, cm, 11/22/19 13:52... Start Date: 07/01/20 Status: OrderedIncruse Ellipta 62.5 mcg/inh inhalation powder 1 each, Inhalation, Every 24 hours, doses should be taken at least 24 hours apart, # 30 each, 5 Refills, Maintenance, 09/21/20 12:17:00 EDT, Powder, [facility]/pharmacy #[id number], 160.02, cm, 11/22/19 13:52:00 [...] 10/05/20 16:18:00 EDT, Route to Pharmacy Electronically, [id number], [facility]/pharmacy #[id number], 160.02... Start Date: 10/05/20 Stop Date: 07/02/21 Status: OrderedSingulair 10 mg oral tablet 10 mg, 1, tablet, By Mouth, Daily in PM, ASTHMA, # 30 tablet, Refills 11, Tot. Refills 11, Maintenance, 03/24/20 14:19:00 EDT, Route to Pharmacy Electronically, [facility]/pharmacy #[id number], 160.02, cm, 11/21/2012:52:00 EDT, [...]
--- OUTSIDE RECORDS SUMMARY | 2022-04-30 23:02 | XMS_ITS ---
:1970 Author Care Team Providers Name Role Phone SUNDEEP MATIAS MD Primary Care Provider [phone] Allergies Code Code System Name Reaction Severity Status Onset 723 RxNorm Amoxicillin ? ? Active ? Penicillins ? ? Active ? Medications Name Status Start Date Stop Date ? ? Asprin Ec Low Dose Active ? Not available atorvastatin Active ? Not available Bydureon Active ? Not available Clindamycin Active ? Not available cyclobenzaprine Active ? Not available Flovent HFA Active ? Not available gabapentin Active ? Not available glipizide-metformin Active ? Not availabl e Keflex Active ? Not available lisinopril Active ? Not available montelukast Active ? Not available ProAir HFA Active ? Not available silver sulfadiazine 1 % topical cream Active ? Not available APPLY A 1/16 INCH (1.5 MM) THICK LAYER TO ENTIRE BURN AREA BY TOPICALROUTE DAILY Problems Name Status Onset Date Source ? Diabetes Mellitus Active 10/30/2019 ? Procedures Date Name Performed by ? 10/30/2019 XR, Toe(s), 2 [facility] [address] [place], [place] [id number] (Work Place) 10/30/2019 XR, Foot, 3 or More View [facility] ([facility] [employer]) [address] [place] [address] (Work Place) Results Lab Results Date Name Specimen Result Interpretation Description Value Range Status Address ? 10/30/2019 Culture, ? Specimen toe left great ? Final [facility] Superficial Description Reference Wound Laboratori es: [address], [place] ? ? ? Special none ? Final [facility] Requests Referenc e Laboratori es: [address], [place] ? ? ? gram Stain ? ? Final [facility] ate Reference Laboratori es: [address], [place] ? ? ABNORMAL Culture ? ? Final [facility] Reference [facility]: [address], [place] ? ? ? Report Status final ? Final [facility] 11/04/2019 Refere nce Laboratori es: [address], [place] ? ? ? Organism organism 4+ ? Final [facility] proteus Reference mirabilis Laborat ories: [address], [place] ? ? ? Method method min. ? Final [facility] inhib. conc. Refe rence (mcg/mL) Laborato artemio: [address], [place] ? ? Resistant Ampicillin ampicillin ? Final [facility] resistant Referen ce Laboratori es: [address], [place] ? ? Intermedia Ampicillin/orantes ampicillin/sul ? Final [facility] te lbactam bactam Reference intermediate Labo ratories: [address], [place] ? ? Susceptibl Amoxicillin/c amoxicillin/cl ? Final [facility] e lavulanic Acid avulan Re ference susceptible Labor atories: [address], [place] ? ? Resistant Cefazolin cefazolin ? Final [facility] resistant Referen ce Laboratori es: [address], [place] ? ? Susceptibl Cefepime cefepime ? Final [facility] susceptible Refer ence Laboratori es: [address], [place] ? ? Susceptibl Ceftriaxone ceftriaxone ? Fi nal [facility] e susceptible Refer ence Laboratori es: [address], [place] ? ? Susceptibl Ciprofloxacin ciprofloxacin ? Final [facility] susceptible Refer ence Laboratori es: [address], [place] ? ? Susceptibl Ertapenem ertapenem ? Final [facility] susceptible Refer ence Laboratori es: [address], [place] ? ? Susceptibl Gentamicin gentamicin ? Dawn l [facility] e susceptible Refer ence Laboratori es: [address], [place] ? ? Susceptibl Levofloxacin levofloxacin ? Final [facility] e susceptible Refer ence Laboratori es: [address], [place] ? ? Susceptibl Meropenem meropenem ? Final [facility] e susceptible Refer ence Laboratori es: [address], [place] ? ? Susceptibl Piperacillin/ piperacillin/t ? Final [facility] e tazobactam azobac Refere nce susceptible Labor atories: [address], [place] ? ? Susceptibl Trimeth/sulfa trimeth/sulfam ? Final [facility] methox ethox Reference susceptible Labor atories: [address], [place] ? ? Resistant Tetracycline tetracycline ? F inal [facility] resistant Referen ce Laboratori es: [address], [place] ? ? ? Organism ? ? Final [facility] Reference Laboratori [facility]: [address], [place] ? ? ? Method method min. ? Final [facility] inhib. conc. Refe rence (mcg/mL) Laborato artemio: [address], [place] ? ? Susceptibl Ciprofloxacin ciprofloxacin ? Final [facility] susceptible Refer ence Laboratori es: [address], [place] ? ? Susceptibl Clindamycin clindamycin ? Fi nal [facility] susceptible Refer ence Laboratori es: [address], [place] ? ? Resistant Erythromycin erythromycin ? F inal [facility] resistant Referen ce Laboratori es: [address], [place] ? ? Susceptibl Inducible inducible ? Final [facility] e Clindamycin clindamyci R eference negative Laborato artemio: [address], [place] ? ? Susceptibl Levofloxacin levofloxacin ? Final [facility] e susceptible Refer ence Laboratori es: [address], [place] ? ? Susceptibl Linezolid linezolid ? Final [facility] susceptible Refer ence Laboratori es: [address], [place] ? ? Resistant Oxacillin oxacillin ? Final [facility] resistant Referen ce Laboratori es: [address], [place] ? ? Susceptibl Rifampin ? ? Final [place] [facility] Reference Laboratori es: [address], [place] ? ? Susceptibl Tetracycline tetracycline ? Final [facility] e susceptible Refer ence Laboratori es: [address], [place] ? ? Susceptibl Trimeth/sulfa trimeth/sulfam ? Final [facility] e methox ethox Reference susceptible Labor atories: [address], [place] ? ? Susceptibl Vancomycin vancomycin ? [facility] susceptible Refer ence Laboratori es: [address] Past Encounters None recorded. Social History Tobacco Smoking Status Heavy Tobacco Smoker (1 pack per day) Vaccine List None recorded. Plan of Care Reminders Provider Appointments None recorded. ? ? Lab None recorded. ? ? Referral None recorded. ? ? Procedures None recorded. ? ? Surgeries None recorded. ? ? Imaging None recorded. ? ? Vitals Blood Pressure 190/96 mm[Hg]
--- OUTSIDE RECORDS SUMMARY | 2022-04-30 23:02 | XMS_ITS | Continuity of Care Document ---
:1970 Author Organization [facility] Address [address] [place] [address]- Care Team Providers Name Role Phone Genevieve MORA, Danica Primary Care Physician Encounter [facility] [place] Date(s): 09/17/21 - 10/17/21 [facility] [address] [place], [place] [address] Allergies, Adverse Reactions, Alerts [...] EDT, Route to Pharmacy Electronically, [facility]/pharmacy #[id number], Partial fill upon patient request if the prescription is for a schedule II opioid drug.... Start Date: 08/30/21 Status: OrderedAspirin Enteric Coated 81 mg oral delayed release tablet 1 tablet = 81 mg, By Mouth, Daily, # 30 tablet, 5 Refills, Maintenance, 08/30/21 7:52:00 EDT, [facility]/pharmacy #[id number], 160.02, cm, 08/26/21 10:47:00 EDT, Height Start Date: 08/30/21 Stop Date: 02/26/22 Status: Orderedatorvastatin 10 mg oral tablet 1 tablet = 10 mg, By Mouth, Daily, Cholesterol medication, # 30 tablet, 2 Refills, Maintenance, 08/30/21 7:52:00 EDT, [facility]/pharmacy #[id number], 160.02, cm, 08/26/21 10:47:00 EDT, [...] EST, Route to Pharmacy Electronically, [facility]/pharmacy #[id number], 160.02, cm, 11/22/19 13:52:00 EDT, Height Start Date: 07/30/21 Status: Orderedglipizide-metformin 5 mg-500 mg oral tablet 2 tablet, By Mouth, 2 times a day, DIABETES, # 60 tablet, 2 Refills, Maintenance, 08/30/21 7:52:00 EDT, Tablet, [facility]/pharmacy #[id number], 2 tablet By Mouth [...] Refills, Maintenance, 08/30/21 7:52:00 EDT, [facility]/pharmacy #207, please cancel lisinopril, 1 tablet By Mouth Daily,Instr:NEW BLOOD PRESSURE MEDICATION, 160.02, cm, 08/26/21 10:47:... Start Date: 08/30/21 Status: OrderedIncruse Ellipta 62.5 mcg/inh inhalation powder 1 each, Inhalation, Every 24 hours, doses should be taken at least 24 hours apart, # 30 each, 2 Refills, Maintenance, 08/30/21 7:52:00 EDT, Powder, [facility]/pharmacy #[id number], 160.02, cm, 08/26/21 10:47:00 EDT, Height Start Date: 08/30/21 Status: OrderedLantus Solostar Pen 100 units/mL subcutaneous solution = 10 units, Subcutaneous Injection, Daily at bedtime, # 15 mL, 1 Refills, Maintenance, 09/20/21 8:37:00 EDT, Solution, [facility]/pharmacy #[id number], Partial fill upon patient request if the prescription is for aschedule II opioid drug., 160.02, cm, 09/17/21 8:... Start Date: 09/20/21 Status: OrderedNebulizer mask and tubing Nebulizer mask and tubing, See Instructions, # 1 each, Refills 0, Tot. Refills 0, Maintenance, Dx: Asthma J44.9. To be used with albuterol, 12/17/19 10:33:00 EDT, Compound Start Date: 12/17/19 Status: OrderedPen [place], 31 G x 5 mm BD Ultra [...] EDT, Route to Pharmacy Electronically, [facility]/pharmacy #[id number], 160.02, cm, 08/26/21 10:47:00 EDT, [...]
--- OUTSIDE RECORDS SUMMARY | 2022-04-30 23:02 | XMS_ITS | Continuity of Care Document ---
:1970 Author Organization [facility] Address [address] [place] [address]- Care Team Providers Name Role Phone Genevieve MORA, Danica Primary Care Physician Encounter [facility] [place] Date(s): 03/04/22 - 04/03/22 [facility] [address] [place], [place] [address] Allergies, Adverse Reactions, Alerts Substance [...] each, 2 Refills,Maintenance, 03/14/22 9:19:00 EDT, [facility]/pharmacy #[id number], 2 puffs Inhalation 2 times [...] 17:35:00 EDT, Route to Pharmacy Electronically, [facility]/pharmacy #[id number], Partial fill upon patient request ifthe prescription is for a schedule II opioid drug... Start Date: 02/11/22 Status: OrderedAspirin Enteric Coated 81 mg oral delayed release tablet 1 tablet = 81 mg, By Mouth, Daily, # 30 tablet, 5 Refills, Maintenance, 02/11/22 17:36:00 EDT, [facility]/pharmacy #2071, 160.02, cm, 02/07/22 10:35:00 EDT, Height Start Date: 02/11/22 Stop Date: 08/10/22 Status: Orderedatorvastatin 80 mg oral tablet 1 tablet = 80 mg, By Mouth, Daily at bedtime, # 30 tablet, 0 Refills, Maintenance, 03/28/22 14:31:00EDT, Tablet, [facility]/pharmacy #[id number], Partial fill [...] 17:35:00 EDT, Route to Pharmacy Electronically, [facility]/pharmacy #207, 160.02, cm, 02/07/22 10:35:00 EDT, Height Start Date: 02/11/22 Status: Orderedglipizide-metformin 5 mg-500 mg oral tablet 2 tablet, By Mouth, 2 times a day, DIABETES, # 120 tablet, 2 Refills, Maintenance, 02/11/22 17:35:00EDT, Tablet, [facility]/pharmacy #2070, 2 tablet By Mouth 2 [...] Refills, Maintenance, 02/11/22 17:35:00 EDT, Powder, [facility]/pharmacy #2070, 160.02, cm, 02/07/22 10:35:00 EDT, Height Start Date: 02/11/22 Status: OrderedLantus Solostar Pen 100 units/mL subcutaneous solution = 20 units, Subcutaneous Injection, Daily at bedtime, Dose increase, # 15 mL, 1 Refills, Maintenance, 02/11/22 17:36:00 EDT, Solution, [facility]/pharmacy #207, Partial fill upon patient request if the prescription is for a schedule II opioid drug., 160.02,... Start Date: 02/11/22 Status: OrderedLasix 40 mg oral tablet 40 mg, 1, tablet, By Mouth, Daily, # 30 tablet, Refills 0, Tot. Refills 0, Maintenance, 03/28/22 14:06:00 EDT, Route to Pharmacy Electronically, [facility]/pharmacy #2071, Partial fill upon patient request ifthe [...] 14:06:00 EDT, Route to Pharmacy Electronically, [facility]/pharmacy #2071, Partial fill upon patient requestif the prescription is for a schedule II opioid d... Start Date: 03/28/22 Status: Orderedmontelukast 10 mg oral tablet 1, tablet, By Mouth, Daily in PM, Disregard previous script, # 30 tablet, Refills 1, Tot. Refills 1,01/31/22 10:36:00 EDT, Route to Pharmacy Electronically, [facility]/pharmacy #[id number], 160.02, cm, 12/28/21 11:08:00 EDT, Height Start Date: 01/31/22 Status: OrderedNebulizer mask and tubing Nebulizer mask and tubing, See Instructions, # 1 each, Refills 0, Tot. Refills 0, Maintenance, Dx: Asthma J44.9. To be used with albuterol, 12/17/19 10:33:00 EDT, Compound Start Date: 12/17/19 Status: OrderedPen [place], 31 G x 5 mm BD Ultra [...] 14:05:00 EDT, Route to Pharmacy Electronically, [facility]/pharmacy #[id number], Partial fill upon patient request ifthe prescription is for a schedule II opioid drug... Start Date: 03/28/22 Status: OrderedProAir HFA 90 mcg/inh inhalation aerosol with adapter 2, puffs, Inhalation, Every 4 hours, PRN, for 90 days, # 3 each, Refills 0, Tot. Refills 0, Physician Stop 05/02/22 16:36:00 EST, 02/01/22 16:36:00 EDT, Route to Pharmacy Electronically, [id number], [facility]/pharmacy #2071, 160.02... Start Date: 02/01/22 Stop Date: 05/02/22 Status: OrderedToprol XL 25 mg oral tablet, extended release 25 mg, 1, tablet, By Mouth, Daily, # 30 tablet, Refills 0, Tot. Refills 0, Maintenance, 03/28/22 14:07:00 EDT, Route to Pharmacy Electronically, [facility]/pharmacy #[id number], Partial fill upon patient request ifthe [...] information PersonnelName: Danica Vallejo NP Address: Address: [address] [place] [address]
--- OUTSIDE RECORDS SUMMARY | 2022-04-30 23:02 | XMS_ITS | Continuity of Care Document ---
:1970 Author Organization [facility] Address [address] [place] [address]- Care Team Providers Name Role Phone Medina Moss MD Primary Care Physician En[place] [facility] [place] Date(s): 05/20/19 - 05/30/19 [facility] [address] [place] [address]- [facility] Attending Physician: Admtr, Ar8 Admitting Physician: Admtr, [...] Maintenance, 04/29/1910:25:24 EST, Route to Pharmacy Electronically, [id number], [facility]/pharmacy #[id number] Start Date: 04/29/19 Status: OrderedAlcohol Wipes See [...] 01/04/19 9:32:25 EDT, Route to Pharmacy Electronically, [id number], [facility]/pharmacy #207, note dose increase Start Date: 01/04/19 Stop [...] 01/04/19 9:32:42 EDT, Route to Pharmacy Electronically, [id number], [facility]/pharmacy #2070 Start Date: 01/04/19 Status: OrderedSingulair 10 mg oral tablet 10 mg, 1, tablet, By Mouth, Daily in PM, ASTHMA, # 30 tablet, Refills 5, Tot. Refills 5, Maintenance, 01/04/19 9:33:06 EDT, Route to Pharmacy Electronically, [id number], [facility]/pharmacy #[id number] Start Date: 01/04/19 Status: Ordered Problem List [...]
--- OUTSIDE RECORDS SUMMARY | 2022-04-30 23:02 | XMS_ITS | Continuity of Care Document ---
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) - 10/18/19 [facility]ending Phys[facility] Allergies, Adverse Reactions, Alerts Substance Reaction Severity [...] Maintenance, 07/09/2014:23:00 EST, Route to Pharmacy Electronically, [id number], [facility]/pharmacy #[id number], 160.02, cm, 01/04/19 9:01:00 EDT, [...] tablet, 2 Refills, Maintenance, 07/24/19 19:22:00 EST, [facility]/pharmacy #[id number], 160.02, cm, 01/04/19 9:01:00 EDT, [...] 06/25/19 14:07:00 EST, Route to Pharmacy Electronically, [facility]/pharmacy #[id number], note dose increase, 160.02, cm, [...] 07/24/19 19:22:00 EST, Route to Pharmacy Electronically, [facility]/pharmacy #[id number], Appt required for further refills, 160.02, cm, 01/04/19 9:01:00 EDT, H... Start Date: 07/24/19 Status: OrderedSingulair 10 mg oral tablet 10 mg, 1, tablet, By Mouth, Daily in PM, ASTHMA, # 30 tablet, Refills 5, Tot. Refills 5, Maintenance, 01/04/19 9:33:06 EDT, Route to Pharmacy Electronically, [id number], [facility]/pharmacy #[id number] Start Date: 01/04/19 Status: Ordered Problem List Condition Effective Dates Status Health Status Informant COPD with asthma(Confirmed) Active Type 2 Diabetes Mellitus with Active peripheral neuropathy(Confirmed) Family history of early CAD(Confirmed) Active Hypertension(Confirmed) Active Tobacco use(Confirmed) Active Diagnosis Diagnosis Type Effective Dates Health Status Clinical In formant Service Diabetic Discharge 10/18/19 infection of Diagnosis right foot Social History Social History Type Response Smoking Status Current every day smoker; To bacco user in household: Yes; Other: 2 packs a day; entered on: 01/03/17 Sex
--- OUTSIDE RECORDS SUMMARY | 2022-04-30 23:02 | XMS_ITS | Continuity of Care Document ---
:1970 Author Organization [facility] Address [address] [place] [address]- Care Team Providers Name Role Phone Genevieve MORA, Danica Primary Care Physician [place] [facility] [place]/23[place]21 - 09/22/21 [facility] [address] [place], [place] [address] Allergies, Adverse Reactions, Alerts Substance [...] 08/30/21 7:52:00 EDT, Route to Pharmacy Electronically, [facility]/pharmacy #[id number], Partial fill upon patient request if the prescription is for a schedule II opioid drug.... Start Date: 08/30/21 Status: OrderedAspirin Enteric Coated 81 mg oral delayed release tablet 1 tablet = 81 mg, By Mouth, Daily, # 30 tablet, 5 Refills, Maintenance, 08/30/21 7:52:00 EDT, [facility]/pharmacy #[id number], 160.02, cm, 08/26/21 10:47:00 EDT, Height Start Date: 08/30/21 Stop Date: 02/26/22 Status: Orderedatorvastatin 10 mg oral tablet 1 tablet = 10 mg, By Mouth, Daily, Cholesterol medication, # 30 tablet, 2 Refills, Maintenance, 08/30/21 7:52:00 EDT, [facility]/pharmacy #[id number], 160.02, cm, 08/26/21 10:47:00 EDT, [...] 07/30/21 11:08:00 EST, Route to Pharmacy Electronically, [facility]/pharmacy #[id number], 160.02, cm, 11/22/19 13:52:00 EDT, Height Start Date: 07/30/21 Status: Orderedglipizide-metformin 5 mg-500 mg oral tablet 2 tablet, By Mouth, 2 times a day, DIABETES, # 60 tablet, 2 Refills, Maintenance, 08/30/21 7:52:00 EDT, Tablet, [facility]/pharmacy #[id number], [...] tablet, 2 Refills, Maintenance, 08/30/21 7:52:00 EDT, [facility]/pharmacy #[id number], please cancel lisinopril, 1 tablet By Mouth Daily,Instr:NEW BLOOD PRESSURE MEDICATION, 160.02, cm, 08/26/21 10:47:... Start Date: 08/30/21 Status: OrderedIncruse Ellipta 62.5 mcg/inh inhalation powder 1 each, Inhalation, Every 24 hours, doses should be taken at least 24 hours apart, # 30 each, 2 Refills, Maintenance, 08/30/21 7:52:00 EDT, Powder, [facility]/pharmacy #[id number], 160.02, cm, 08/26/21 10:47:00 EDT, Height Start Date: 08/30/21 Status: OrderedLantus Solostar Pen 100 units/mL subcutaneous solution = 10 units, Subcutaneous Injection, Daily at bedtime, # 15 mL, 1 Refills, Maintenance, 09/20/21 8:37:00 EDT, Solution, [facility]/pharmacy #[id number], Partial fill upon patient request if the prescription is for aschedule II opioid drug., 160.02, cm, 09/17/21 8:... Start Date: 09/20/21 Status: OrderedNebulizer mask and tubing Nebulizer mask and tubing, See Instructions, # 1 each, Refills 0, Tot. Refills 0, Maintenance, Dx: Asthma J44.9. To be used with albuterol, 12/17/19 10:33:00 EDT, Compound Start Date: 12/17/19 Status: OrderedPen [place], 31 G x 5 mm BD Ultra [...] 08/30/21 7:52:00 EDT, Route to Pharmacy Electronically, [facility]/pharmacy #[id number], 160.02, cm, 08/26/21 10:47:00 EDT, [...]
--- OUTSIDE RECORDS SUMMARY | 2022-04-30 23:02 | XMS_ITS | Continuity of Care Document ---
:1970 Author Organization [facility] Address [address] [place] [address]- Care Team Providers Name Role Phone Genevieve MORA, Danica Primary Care Physician [place] [facility] [place] Date(s): 02/07/22 - 04/13/22 [facility] [address] [place], [place] [address] Attending Physician: Danica Vallejo NP [...] 1 each, 2 Refills,Maintenance, 03/14/22 9:19:00 EDT, [facility]/pharmacy #[id number], 2 puffs Inhalation 2 [...] 02/11/22 17:35:00 EDT, Route to Pharmacy Electronically, [facility]/pharmacy #[id number], Partial fill upon patient request ifthe prescription is for a schedule II opioid drug... Start Date: 02/11/22 Status: OrderedAspirin Enteric Coated 81 mg oral delayed release tablet 1 tablet = 81 mg, By Mouth, Daily, # 30 tablet, 5 Refills, Maintenance, 02/11/22 17:36:00 EDT, [facility]/pharmacy #[id number], 160.02, cm, 02/07/22 10:35:00 EDT, Height Start Date: 02/11/22 Stop Date: 08/10/22 Status: Orderedatorvastatin 80 mg oral tablet 1 tablet = 80 mg, By Mouth, Daily at bedtime, # 30 tablet, 0 Refills, Maintenance, 03/28/22 14:31:00EDT, Tablet, [facility]/pharmacy #[id number], Partial fill upon patient [...] 02/11/22 17:35:00 EDT, Route to Pharmacy Electronically, [facility]/pharmacy #207, 160.02, cm, 02/07/22 10:35:00 EDT, Height Start Date: 02/11/22 Status: Orderedglipizide-metformin 5 mg-500 mg oral tablet 2 tablet, By Mouth, 2 times a day, DIABETES, # 120 tablet, 2 Refills, Maintenance, 02/11/22 17:35:00EDT, Tablet, [facility]/pharmacy #[id number], 2 tablet By Mouth [...] 2 Refills, Maintenance, 02/11/22 17:35:00 EDT, Powder, [facility]/pharmacy #[id number], 160.02, cm, 02/07/22 10:35:00 EDT, Height Start Date: 02/11/22 Status: OrderedLantus Solostar Pen 100 units/mL subcutaneous solution = 20 units, Subcutaneous Injection, Daily at bedtime, Dose increase, # 15 mL, 1 Refills, Maintenance, 02/11/22 17:36:00 EDT, Solution, [facility]/pharmacy #207, Partial fill upon patient request if the prescription is for a schedule II opioid drug., 160.02,... Start Date: 02/11/22 Status: OrderedLasix 40 mg oral tablet 40 mg, 1, tablet, By Mouth, Daily, # 30 tablet, Refills 0, Tot. Refills 0, Maintenance, 03/28/22 14:06:00 EDT, Route to Pharmacy Electronically, [facility]/pharmacy #[id number], Partial fill upon patient [...] 03/28/22 14:06:00 EDT, Route to Pharmacy Electronically, [facility]/pharmacy #[id number], Partial fill upon patient requestif the prescription is for a schedule II opioid d... Start Date: 03/28/22 Status: Orderedmontelukast 10 mg oral tablet 1, tablet, By Mouth, Daily in PM, Disregard previous script, # 30 tablet, Refills 1, Tot. Refills 1,01/31/22 10:36:00 EDT, Route to Pharmacy Electronically, [facility]/pharmacy #[id number], 160.02, cm, 12/28/21 11:08:00 EDT, Height Start Date: 01/31/22 Status: OrderedNebulizer mask and tubing Nebulizer mask and tubing, See Instructions, # 1 each, Refills 0, Tot. Refills 0, Maintenance, Dx: Asthma J44.9. To be used with albuterol, 12/17/19 10:33:00 EDT, Compound Start Date: 12/17/19 Status: OrderedPen [place], 31 G x 5 mm BD Ultra [...] 03/28/22 14:05:00 EDT, Route to Pharmacy Electronically, [facility]/pharmacy #[id number], Partial fill upon patient request ifthe prescription is for a schedule II opioid drug... Start Date: 03/28/22 Status: OrderedProAir HFA 90 mcg/inh inhalation aerosol with adapter 2, puffs, Inhalation, Every 4 hours, PRN, for 90 days, # 3 each, Refills 0, Tot. Refills 0, Physician Stop 05/02/22 16:36:00 EST, 02/01/22 16:36:00 EDT, Route to Pharmacy Electronically, [id number], [facility]/pharmacy #[id number], 160.02... Start Date: 02/01/22 Stop Date: 05/02/22 Status: OrderedToprol XL 25 mg oral tablet, extended release 25 mg, 1, tablet, By Mouth, Daily, # 30 tablet, Refills 0, Tot. Refills 0, Maintenance, 03/28/22 14:07:00 EDT, Route to Pharmacy Electronically, [facility]/pharmacy #[id number], Partial fill upon patient [...] information PersonnelName: Danica Vallejo NP Address: Address: [address] [place] [address]
--- OUTSIDE RECORDS SUMMARY | 2022-04-30 23:02 | XMS_ITS | Continuity of Care Document ---
:1970 Author Organization [facility] Address [address] [place] [address]- Care Team Providers Name Role Phone Genevieve MORA, Danica Primary Care Physician Encounter [facility] [place] Date(s): 09/17/21 - 10/17/21 [facility] [address] [place], [place] [address] Attending Physician: Admtr, [id number] Admitting Physician: Admtr, [id number] Referring Physician: Admtr, [...] 08/30/21 7:52:00 EDT, Route to Pharmacy Electronically, [facility]/pharmacy #[id number], Partial fill upon patient request if the prescription is for a schedule II opioid drug.... Start Date: 08/30/21 Status: OrderedAspirin Enteric Coated 81 mg oral delayed release tablet 1 tablet = 81 mg, By Mouth, Daily, # 30 tablet, 5 Refills, Maintenance, 08/30/21 7:52:00 EDT, [facility]/pharmacy #207, 160.02, cm, 08/26/21 10:47:00 EDT, Height Start Date: 08/30/21 Stop Date: 02/26/22 Status: Orderedatorvastatin 10 mg oral tablet 1 tablet = 10 mg, By Mouth, Daily, Cholesterol medication, # 30 tablet, 2 Refills, Maintenance, 08/30/21 7:52:00 EDT, [facility]/pharmacy #207, 160.02, cm, 08/26/21 [...] 07/30/21 11:08:00 EST, Route to Pharmacy Electronically, [facility]/pharmacy #207, 160.02, cm, 11/22/19 [...] EDT, Compound Start Date: 12/17/19 Status: OrderedPen [place], 31 G x 5 mm BD Ultra [...] 08/30/21 7:52:00 EDT, Route to Pharmacy Electronically, [facility]/pharmacy #[id number], 160.02, cm, 08/26/21 [...]
[2022-04-30 23:24] LABS: Acetone, serum QL Negative (Negative)
--- NOTE | 2022-04-30 23:41 | ED.GENADULT ---
HPI - General Adult General Chief complaint: General Medical Stated complaint: MOUTH AND EVE FOOT PAIN ? INF X'S 1WK PER EMS Time Seen by Provider: 04/30/22 22:47 Source: patient Mode of arrival: EMS History of Present Illness HPI narrative: 51-year-old female, known diabetic, brought in by EMS for mouth pain on bilateral lower extremity numbness and pain with infection in the right foot. Patient reports she has been having subjective fevers and chills otherwise denies any shortness of breath/chest pain/palpitations and denies any GI or symptoms. Related Data Home Medications Medication Instructions Recorded Confirmed albuterol sulfate 90 mcg/actuation 2 puff PO Q4H PRN wheezing 12/24/20 03/23/22 aerosol inhaler (ProAir HFA) aspirin 81 mg tablet,delayed 1 tab PO DAILY 12/24/20 03/23/22 release atorvastatin 10 mg tablet 1 tab PO DAILY 12/24/20 03/23/22 fluticasone propionate 115 2 puff inhalation BID 12/24/20 03/23/22 mcg-salmeterol 21 mcg/actuation HFA inhaler (Advair HFA) glipizide 5 mg-metformin 500 mg 2 tab PO BID 12/24/20 03/23/22 tablet lisinopril 20 1 tab PO DAILY 10/31/21 03/23/22 mg-hydrochlorothiazide 12.5 mg tablet umeclidinium 62.5 mcg/actuation 1 puff PO DAILY 10/31/21 03/23/22 blister powder for inhalation (Incruse Ellipta) montelukast 10 mg tablet 1 tab PO BEDTIME 02/13/22 03/23/22 insulin glargine 100 unit/mL (3 20 unit subcut BEDTIME 03/23/22 03/23/22 mL) subcutaneous pen (Lantus Solostar U-100 Insulin) Previous Rx's Medication Instructions Recorded amlodipine 10 mg tablet 10 mg PO DAILY 30 days #30 tabs 12/27/20 gabapentin 300 mg capsule 600 mg PO BEDTIME #20 caps 11/21/21 albuterol sulfate 2.5 mg/3 mL 2.5 mg (3 mL) inhalation QID PRN 03/15/22 (0.083 %) solution for nebulization bronchospasm #90 mL codeine 10 mg-guaifenesin 100 mg/5 10 ml PO Q6H PRN cough #237 mL 03/17/22 mL oral liquid doxycycline hyclate 100 mg tablet 100 mg PO BID #20 tabs 03/17/22 albuterol sulfate 90 mcg/actuation 1 inh inhalation QID PRN shortness 04/17/22 aerosol inhaler of breath or wheezing #8.5 grams azithromycin 250 mg tablet See Rx Instructions PO .COMPLEX #6 04/17/22 tabs azithromycin 500 mg tablet See Rx Instructions PO .COMPLEX #3 04/17/22 tabs benzonatate 100 mg capsule 100 mg PO BID PRN cough #14 caps 04/17/22 cyclobenzaprine 10 mg tablet 10 mg PO Q8H #14 tabs 04/17/22 prednisone 20 mg tablet 40 mg PO DAILY Asthma/COPD 04/17/22 exacerbation 5 days #10 tabs naproxen 500 mg tablet (Naprosyn) 500 mg PO BID #20 tabs 04/18/22 Allergies Allergy/AdvReac Type Severity Reaction Status Date / Time Penicillins [PENICILLINS] Allergy Severe RASH Verified 02/14/22 07:59 amoxicillin [AMOXICILLIN] Allergy Intermediate HIVES Verified 02/11/22 15:09 codeine Allergy Itching Verified 04/17/22 12:14 Review of Systems Review of Systems: Pertinent positives and negatives as stated in HPI 10 point review of systems is otherwise negative. [facility] Past Medical History Source: nursing notes reviewed Medical History Asthma Atherosclerotic cardiovascular disease Atrial tachycardia COPD (chronic obstructive pulmonary disease) COVID-19 vaccine series completed Diabetes Diabetic toe ulcer Essential hypertension GERD (gastroesophageal reflux disease) Hypertension Osteomyelitis Surgical History History of esophagogastroduodenoscopy (EGD) History of toe surgery (09/22/21) Family History Family History Mother Hx of CABG Sister CAD (coronary artery disease) Social History Social History Household Members: Family Housing: Apartment Do you presently have visiting nurse or other home services: Yes Alcohol intake: never Patient Tobacco Use Status: Current everyday Tobacco user Tobacco use type: Cigarette Cigarettes Per Day: 1 Years Smoked: 43 e-Cigarette/Vaping Use: Never Used Second Hand Smoke Exposure: Yes Advance Directives: No Advance Directives Information Provided: No Advance Directives Date on File: 12/28/20 service: No Current occupational status: unemployed Physical Exam ED Vital Signs: Vital Signs - 24 hr 04/30/22 21:59 05/01/22 00:00 05/01/22 00:49 Temperature 98.8 F Pulse Rate 99 121 H 120 H Respiratory Rate 16 17 Blood Pressure 134/88 142/73 H 119/76 Pulse Oximetry 99 95 98 Oxygen Delivery Method Room Air Room Air Room Air 05/01/22 01:17 05/01/22 01:37 05/01/22 01:42 Temperature 98.3 F Pulse Rate 116 H 117 H Respiratory Rate Blood Pressure 154/70 H 142/64 H Pulse Oximetry 99 98 Oxygen Delivery Method Room Air BMI result Body Mass Index 28.2 VITAL SIGNS: Reviewed. GENERAL: Poor hygiene, in moderate distress. HEAD: Normocephalic/atraumatic EYES: PERRLA, EOMI EARS: Ext canals without abnormality OROPHARYNX: no oral lesions noted, posterior pharynx clear, there appears to be an abscess at the right corner of patient's mouth NECK: Supple, no adenopathy LUNGS: Normal breath sounds. No adventitious sounds or accessory muscle use. SpO2<99> CARDIOVASCULAR: Regular rate and rhythm without noted murmurs, no JVD or lower extremity edema. ABDOMEN: Soft, non-tender, non-distended with bowel sounds. MUSCULOSKELETAL: No tenderness, deformities, or effusions noted on gross inspection. EXTREMITIES: No cyanosis, clubbing or edema; RIGHT FOOT: Erythema, induration, warmth to touch and noted blisters; LEFT FOOT: Patient has a nonhealing fissure along the medial aspect of her left foot and appears to have a depth of plantar fascia SKIN: Inspection of the skin reveals no rashes NEUROLOGIC: Alert and oriented x 4. Strength and sensation to light touch were grossly intact x 4. Course Course Course Narrative: 51-year-old female with history and clinical presentation consistent with hyperglycemia without evidence of DKA, dehydration though is present and concern for gangrene/cellulitis of the right foot and possible OM on the left foot. 0015: Delay in administration of IV fluids due to no IV access, ultrasound-guided IV was placed and fluid boluses started. 0030: Instructed nursing to hold off on lactic acid for 30 minutes so that IV fluids had a chance to infuse. All investigations reviewed. I discussed case with the inpatient hospitalist who accepts admission. Medications Administered Discontinued Medications Generic Name Dose Route Start Last Admin Trade Name Freq PRN Reason Stop Dose Admin Sodium Chloride 2,000 mls @ 999 mls/hr 04/30/22 23:00 04/30/22 23:54 Ns IV 05/01/22 01:00 999 mls/hr .Q2H1M MÓNICA Administration Ceftriaxone Sodium 1 gm/ 50 mls @ 100 mls/hr 04/30/22 23:42 05/01/22 01:47 Sodium Chloride IV 05/01/22 00:11 Infused ONCE ONE Infusion Vancomycin HCl 1,000 mg/ 270 mls @ 270 mls/hr 04/30/22 23:42 05/01/22 00:29 Sodium Chloride IV 05/01/22 00:41 270 mls/hr ONCE ONE Administration Insulin Human Lispro 10 unit 05/01/22 00:15 05/01/22 00:31 Insulin Lispro 100 Unit/Ml 3 Ml Vial SUBCUT 05/01/22 00:16 10 unit ONCE ONE Administration Procedures EJ/Peripheral Line Arm L: Time Out Performed: No Skin Cleansed in Sterile Fashion: Yes Size (gauge): 18 IV Secured and Dressing Applied: Yes Patient Tolerated Procedure: well Additional Comments: Ultrasound-guided Medical Decision Making Lab Data Result diagrams: 04/30/22 22:14 04/30/22 22:14 Labs: Lab Results 04/30/22 04/30/22 04/30/22 Range/Units 22:14 22:14 22:14 WBC 15.7 H (4.8-10.8) X10*3/uL RBC 4.33 (4.20-5.50) X10*6/uL Hgb 9.7 L (12.0-16.0) g/dl Hct 31.9 L (37.0-47.0) % MCV 73.7 L (80.0-98.0) fL MCH 22.4 L (27.0-33.0) pg MCHC 30.4 L (31.0-35.0) g/dl RDW 16.9 H (11.0-16.0) % Plt Count 160 D (160-400) X10*3/uL MPV Not Reportable Immature Gran % (Auto) 0.8 H (0.0-0.4) % Neut % (Auto) 90.9 H (45-73) % Lymph % (Auto) 4.3 L (20-40) % [place] % (Auto) 3.4 (2-11) % Eos % (Auto) 0.3 (0-4) % Baso % (Auto) 0.3 (0-2) % Lymph # (Auto) 0.7 L (1.2-4.9) X10*3/uL [place] # (Auto) 0.5 (0.1-1.2) X10*3/uL Eos # (Auto) 0.1 (0.0-0.4) X10*3/uL Baso # (Auto) 0.0 (0.0-0.2) X10*3/uL Abs Immat Gran (auto) 0.12 H (0.00-0.03) X10*3/uL Absolute Neuts (auto) 14.2 H (2.0-8.3) x10*3/uL Absolute Nucleated RBC 0.000 (0.0-0.012) X10*3/uL Nucleated RBC % (auto) 0.0 (0.0-0.2) /100WBC Smear Tech's Comments VERIFIED Sodium 126 L (135-145) mmol/L Potassium 3.3 D (3.3-5.1) mmol/L Chloride 86 L (96-108) mmol/L Carbon Dioxide 26 (22-29) mmol/L Anion Gap 17 (12-20) BUN 9 (9-16) mg/dL Creatinine 1.43 H (0.5-1.4) mg/dL Estim Creat Clear Calc 50.0 Estimated GFR 39 POC Glucose (60-115) mg/dL Random Glucose 699 H* D (60-115) mg/dL Lactic Acid 3.0 H* (0.5-2.0) mmol/L Calcium 8.5 D (8.4-10.2) mg/dL Total Bilirubin 0.2 (0.0-1.0) mg/dL AST 8 D (5-31) U/L ALT 9 (0-31) U/L Alkaline Phosphatase 97 (39-117) U/L C-Reactive Protein 24.16 H (< or = 0.50) mg/dL Total Protein 6.4 L (6.5-8.0) g/dL Albumin 3.5 (3.5-5.0) g/dL Urine Color Urine Appearance Urine pH (5.0-9.0) Ur Specific [place] (1.005-1.025) Urine Protein (Neg-Trace) mg/dL Urine Glucose (UA) (Negative) mg/dL Urine Ketones (Negative) mg/dL Urine Blood (Negative) Urine Nitrite (Negative) Ur Leukocyte Esterase (Negative) Urine RBC (0-2) /HPF Urine WBC (0-5) /HPF Ur Squamous Epith Cells (0-2) /HPF Urine Bacteria (None Seen) Hyaline Casts (0-2) /LPF Acetone, Qual Negative (Negative) COVID-19 (KATHLEEN) (Negative) COVID-19 Clin Com 05/01/22 05/01/22 05/01/22 Range/Units 00:01 00:22 01:46 WBC (4.8-10.8) X10*3/uL RBC (4.20-5.50) X10*6/uL Hgb (12.0-16.0) g/dl Hct (37.0-47.0) % MCV (80.0-98.0) fL MCH (27.0-33.0) pg MCHC (31.0-35.0) g/dl RDW (11.0-16.0) % Plt Count (160-400) X10*3/uL MPV Immature Gran % (Auto) (0.0-0.4) % Neut % (Auto) (45-73) % Lymph % (Auto) (20-40) % [place] % (Auto) (2-11) % Eos % (Auto) (0-4) % Baso % (Auto) (0-2) % Lymph # (Auto) (1.2-4.9) X10*3/uL [place] # (Auto) (0.1-1.2) X10*3/uL Eos # (Auto) (0.0-0.4) X10*3/uL Baso # (Auto) (0.0-0.2) X10*3/uL Abs Immat Gran (auto) (0.00-0.03) X10*3/uL Absolute Neuts (auto) (2.0-8.3) x10*3/uL Absolute Nucleated RBC (0.0-0.012) X10*3/uL Nucleated RBC % (auto) (0.0-0.2) /100WBC Smear Tech's Comments Sodium (135-145) mmol/L Potassium (3.3-5.1) mmol/L Chloride (96-108) mmol/L Carbon Dioxide (22-29) mmol/L Anion Gap (12-20) BUN (9-16) mg/dL Creatinine (0.5-1.4) mg/dL Estim Creat Clear Calc Estimated GFR POC Glucose 312 H (60-115) mg/dL Random Glucose (60-115) mg/dL Lactic Acid (0.5-2.0) mmol/L Calcium (8.4-10.2) mg/dL Total Bilirubin (0.0-1.0) mg/dL AST (5-31) U/L ALT (0-31) U/L Alkaline Phosphatase (39-117) U/L C-Reactive Protein (< or = 0.50) mg/dL Total Protein (6.5-8.0) g/dL Albumin (3.5-5.0) g/dL Urine Color Yellow Urine Appearance Clear Urine pH 6.0 (5.0-9.0) Ur Specific [place] 1.025 (1.005-1.025) Urine Protein 30 (1+) H (Neg-Trace) mg/dL Urine Glucose (UA) >=1000 H (Negative) mg/dL Urine Ketones Negative (Negative) mg/dL Urine Blood Negative (Negative) Urine Nitrite Negative (Negative) Ur Leukocyte Esterase Negative (Negative) Urine RBC 0-2 (0-2) /HPF Urine WBC 0-5 (0-5) /HPF Ur Squamous Epith Cells 6-10 (0-2) /HPF Urine Bacteria None Seen (None Seen) Hyaline Casts 0-2 (0-2) /LPF Acetone, Qual (Negative) COVID-19 (KATHLEEN) Negative (Negative) COVID-19 Clin Com See Note ECG Data Attestation: I personally reviewed and interpreted this ECG as follows: Prior ECG tracings: available for review Interpretation: Sinus tachycardia, HR-121, no STEMI, MS/QRS/QTC are within normal limits. Critical Care Time Critical Care Time Critical Care Time: Yes Total Critical Care Time: 30 Attestation: I personally attest to this time spent taking care of the patient. Discharge Plan Discharge Clinical Impression: Hyperglycemia, Dehydration, Osteomyelitis, IRAIS (acute kidney injury), Sepsis, Cellulitis of right foot Patient Disposition: Admitted As Inpatient
[2022-04-30 23:44] LABS: C Reactive Protein 24.16 mg/dL (< or = 0.50)
[2022-04-30] MEDS: 0.9 % Sodium Chloride 2,000 ML 999 ML IV (23:54)
[2022-05-01] VITALS (16 sets, daily range): BP systolic 119–154; BP diastolic 58–88; PULSE 72–121; RESP 10–20; TEMP 36.1–37.5; O2SAT 95–99; BMI 25.4
[2022-05-01] MEDS: cefTRIAXone sodium 1 GM in 0.9 % Sodium Chloride 50 ML IV (00:13)
[2022-05-01 00:17] LABS: Reflex Lactate? Lactic Acid Added
[2022-05-01 00:26] LABS: Appearance Urine Clear; Color Urine Yellow; Glucose Urine UA >=1000 mg/dL (Negative); Leukocyte Esterase Urine Negative (Negative); Nitrite Urine Negative (Negative); Specific Gravity - Urine 1.025 (1.005-1.025); UMIC TRIGGER UACC YES; Urine Blood Negative (Negative); Urine Ketones Negative (Negative); Urine Protein 30 (1+) mg/dL (Neg-Trace)
[2022-05-01] MEDS: vancomycin HCL 1,000 MG in 0.9 % Sodium Chloride 250 ML 270 MG IV ×3 (00:29→22:35)
[2022-05-01 00:31] LABS: Bacteria Urine None Seen (None Seen); Hyaline Casts Urine 0-2 /LPF (0-2); RBC Urine 0-2 /HPF (0-2); WBC Urine 0-5 /HPF (0-5)
[2022-05-01] MEDS: Insulin Lispro 100 UNIT/ML 3 ML VIAL 10 UNIT SUBCUT (00:31)
[2022-05-01 00:52] LABS: COVID-19 Test Negative (Negative); IDNOW Serial# BCCEAD1C
[2022-05-01 01:49] LABS: Glucose, Whole Blood 312 mg/dL (60-115)
--- NOTE | 2022-05-01 01:55 | PM.IMHP ---
History of Present Illness Date of Service: 05/01/22 Chief Complaint: mouth pain , feet pain 51-year-old female with past medical history of asthma, atherosclerotic cardiovascular disease, diabetes, hypertension, GERD, history of osteomyelitis, history of oral thrush, COPD, presents to the hospital with complaints of mouth pain as well as bilateral foot pain to the point where she has difficulty walking. Patient reports that she developed an ulcer at her mouth about a week ago, very painful, she has also noticed lower extremity pain specially in her right foot, associated with swelling, erythema, numbness and inability to walk on her feet due to the pain. She reports no fever chills. Patient has ulcer at the bottom of her right foot, she denies walking barefoot or having any injury at the bottom of her foot, ports no fever, some chills, she is crying, stating the pain is 10/10, reports no IV drug use. Denies any chest pain, no shortness of breath, no abdominal pain nausea or vomiting, no diarrhea constipation, no urinary symptoms. On arrival to the ED patient hemodynamically stable but became tacky cardiac but stable blood pressure Labs are significant for WBC count of 15.7, hemoglobin of 9.7, hematocrit 31.9, creatinine of 1.43, glucose of 699, CRP of 24.16, UA negative, X-ray of foot bilaterally negative. Patient started on IV antibiotics and will be admitted for further management Review of Systems Review of Systems: Yes all other systems are reviewed and are negative [facility] Medical History Asthma Atherosclerotic cardiovascular disease Atrial tachycardia COPD (chronic obstructive pulmonary disease) COVID-19 vaccine series completed Diabetes Diabetic toe ulcer Essential hypertension GERD (gastroesophageal reflux disease) Hypertension Osteomyelitis Family History Mother Hx of CABG Sister CAD (coronary artery disease) Surgical History History of esophagogastroduodenoscopy (EGD) History of toe surgery (09/22/21) Social History Household Members: Family Housing: Apartment Do you presently have visiting nurse or other home services: Yes Alcohol intake: never Patient Tobacco Use Status: Current everyday Tobacco user Tobacco use type: Cigarette Cigarettes Per Day: 1 Years Smoked: 43 e-Cigarette/Vaping Use: Never Used Second Hand Smoke Exposure: Yes Advance Directives: No Advance Directives Information Provided: No Advance Directives Date on File: 12/28/20 service: No Current occupational status: unemployed Meds Allergies Allergy/AdvReac Type Severity Reaction Status Date / Time Penicillins [PENICILLINS] Allergy Severe RASH Verified 02/14/22 07:59 amoxicillin [AMOXICILLIN] Allergy Intermediate HIVES Verified 02/11/22 15:09 codeine Allergy Itching Verified 04/17/22 12:14 Active Medications: Current Medications Morphine Sulfate (Morphine Sulfate 2 Mg/Ml Cartridge) 2 mg IVPUSH ONCE ONE; Protocol Stop: 05/01/22 01:54 Pharmacy Consult (Consult Rx Vancomycin Dosing) 1 each MISCELLANE DAILY PRN PRN Reason: Consult order Home Medications Medication Instructions Recorded Confirmed Last Taken Type albuterol sulfate 90 mcg/actuation 2 puff PO Q4H PRN wheezing 12/24/20 03/23/22 10/30/21 History aerosol inhaler (ProAir HFA) aspirin 81 mg tablet,delayed 1 tab PO DAILY 12/24/20 05/01/22 02/13/22 History release atorvastatin 10 mg tablet 1 tab PO DAILY 12/24/20 05/01/22 02/11/22 History fluticasone propionate 115 2 puff inhalation BID 12/24/20 03/23/22 02/11/22 History mcg-salmeterol 21 mcg/actuation HFA inhaler (Advair HFA) glipizide 5 mg-metformin 500 mg 2 tab PO BID 12/24/20 05/01/22 02/11/22 History tablet lisinopril 20 1 tab PO DAILY 10/31/21 05/01/22 02/13/22 History mg-hydrochlorothiazide 12.5 mg tablet umeclidinium 62.5 mcg/actuation 1 puff PO DAILY 10/31/21 05/01/22 10/30/21 History blister powder for inhalation (Incruse Ellipta) montelukast 10 mg tablet 1 tab PO BEDTIME 02/13/22 05/01/22 02/13/22 History insulin glargine 100 unit/mL (3 20 unit subcut BEDTIME 03/23/22 05/01/22 Unknown History mL) subcutaneous pen (Lantus Solostar U-100 Insulin) albuterol sulfate 2.5 mg/3 mL mg 05/01/22 Unknown History (0.083 %) solution for nebulization gabapentin 300 mg capsule 2 cap PO BEDTIME 05/01/22 05/01/22 Unknown History Physical Exam Vital Signs and Narrative: Vital Signs: Last Vital Signs Temp 98.3 F 05/01/22 01:42 Pulse 117 H 05/01/22 01:37 Resp 17 05/01/22 00:00 BP 142/64 H 05/01/22 01:37 Pulse Ox 98 05/01/22 01:37 O2 Del Method 05/01/22 01:17 BMI result Body Mass Index 28.2 Const: General: cooperative and no acute distress Orientation/consciousness: patient oriented x3 HEENT: Other: Has a large crusted lesion at right corner of her mouth,appears to extend to inside of mouth pt has very poor dentition and almost adontelous Eyes: General: appearance normal, both eyes and all related structures Resp: Effort & Inspection: normal respiratory effort Auscultation: clear to auscultation bilaterally Cardio: Rate: regular rate Rhythm: regular rhythm GI: Palpation (GI): Soft to palpation Auscultation: normal bowel sounds Skin: Other: Right lower extremity edema at the [place], warmth, tenderness, On right foot she has a small ulcer at the base of the foot, she has multiple other lesions at the heel On the left foot she has a large laceration that does appear to be infected with some drainage and tenderness General skin exam: no rashes or lesions noted Neuro: General: patient oriented x3 Cognition (Neuro): normal cognition Extrem: General: Yes normal to inspection and Yes no pedal edema Results Labs CBC and Chem 7: 04/30/22 22:14 04/30/22 22:14 Labs: Laboratory Results - last 24 hr 04/30/22 04/30/22 04/30/22 22:14 22:14 22:14 MCV 73.7 L MCH 22.4 L MCHC 30.4 L RDW 16.9 H Plt Count 160 D MPV Not Reportable Immature Gran % (Auto) 0.8 H Neut % (Auto) 90.9 H Lymph % (Auto) 4.3 L [place] % (Auto) 3.4 Eos % (Auto) 0.3 Baso % (Auto) 0.3 Lymph # (Auto) 0.7 L [place] # (Auto) 0.5 Eos # (Auto) 0.1 Baso # (Auto) 0.0 Abs Immat Gran (auto) 0.12 H Absolute Neuts (auto) 14.2 H Absolute Nucleated RBC 0.000 Nucleated RBC % (auto) 0.0 Smear Tech's Comments VERIFIED Anion Gap 17 Estim Creat Clear Calc 50.0 Estimated GFR 39 POC Glucose Random Glucose 699 H* D Lactic Acid 3.0 H* Calcium 8.5 D Total Bilirubin 0.2 AST 8 D ALT 9 Alkaline Phosphatase 97 C-Reactive Protein 24.16 H Total Protein 6.4 L Albumin 3.5 Urine Color Urine Appearance Urine pH Ur Specific [place] Urine Protein Urine Glucose (UA) Urine Ketones Urine Blood Urine Nitrite Ur Leukocyte Esterase Urine RBC Urine WBC Ur Squamous Epith Cells Urine Bacteria Hyaline Casts Acetone, Qual Negative COVID-19 (KATHLEEN) COVID-19 Clin Com 05/01/22 05/01/22 05/01/22 00:01 00:22 01:46 MCV MCH MCHC RDW Plt Count MPV Immature Gran % (Auto) Neut % (Auto) Lymph % (Auto) [place] % (Auto) Eos % (Auto) Baso % (Auto) Lymph # (Auto) [place] # (Auto) Eos # (Auto) Baso # (Auto) Abs Immat Gran (auto) Absolute Neuts (auto) Absolute Nucleated RBC Nucleated RBC % (auto) Smear Tech's Comments Anion Gap Estim Creat Clear Calc Estimated GFR POC Glucose 312 H Random Glucose Lactic Acid Calcium Total Bilirubin AST ALT Alkaline Phosphatase C-Reactive Protein Total Protein Albumin Urine Color Yellow Urine Appearance Clear Urine pH 6.0 Ur Specific [place] 1.025 Urine Protein 30 (1+) H Urine Glucose (UA) >=1000 H Urine Ketones Negative Urine Blood Negative Urine Nitrite Negative Ur Leukocyte Esterase Negative Urine RBC 0-2 Urine WBC 0-5 Ur Squamous Epith Cells 6-10 Urine Bacteria None Seen Hyaline Casts 0-2 Acetone, Qual COVID-19 (KATHLEEN) Negative COVID-19 Clin Com See Note Imaging Radiologist's Impressions: Impressions Foot X-Ray 04/30/22 23:53 IMPRESSION: No acute abnormality of the foot. Foot X-Ray 04/30/22 23:53 IMPRESSION: Status post amputation of second toe. Chronic deformity of the head of the second metatarsal. No acute changes. Assessment and Plan (1) Sepsis: Qualifiers: Sepsis type: sepsis due to unspecified organism Sepsis acute organ dysfunction status: with acute organ dysfunction Severe sepsis acute organ dysfunction type: acute renal failure Acute renal failure type: unspecified Severe sepsis shock status: without septic shock Qualified Code(s): A41.9 - Sepsis, unspecified organism; R65.20 - Severe sepsis without septic shock; N17.9 - Acute kidney failure, unspecified Status: Acute (2) Osteomyelitis: Status: Acute (3) IRAIS (acute kidney injury): Status: Acute (4) Diabetic foot infection: Status: Acute (5) Hyperglycemia: Status: Acute (6) Cellulitis of right foot: Status: Acute Plan This is a 51-year-old female with past medical history of diabetes presents to the hospital with complaints of pain in her feet found to have diabetic foot infection # sepsis - has tachycardia, leukocytosis, - likely secondary to osteomyelitis/diabetic foot infection - will treat with IV antibiotics - follow cultures # osteomyelitis/diabetic foot infection - has evidence of infection with multiple lesions in the right foot and a large laceration in the left - elevated CRP, will obtain ESR - will obtain foot MRI - infectious disease consult - no evidence of abscess on x-ray of the feet - will treat with IV antibiotics - follow cultures # IRAIS - likely secondary to dehydration and sepsis - will treat with IV fluids - follow BMP # hyperglycemia - likely poor compliance with her anti hyperglycemics - treated with insulin with improvement - will place on low-dose sliding scale insulin - diabetic diet - follow glucose q.i.d. a.c. HS # cellulitis of right foot - cellulitis at the [place] of right foot - which she with antibiotics as above - follow cultures # hypertension - stable - continue antihypertensives as BP is slightly elevated DVT prophylaxis: Heparin subQ Given patient's sepsis, as well as acute infection requiring IV antibiotics patient require minimum 2 night inpatient hospital stay for further management and monitor Quality Stroke Does the patient have a stroke diagnosis?: No VTE Prior VTE?: No VTE Risk Level:: Medical - moderate - high VTE Device Contraindication: Treatment Not Indicated VTE Drug Contraindication: N/A - Med Ordered
--- OUTSIDE RECORDS SUMMARY | 2022-05-01 02:01 | XMS_ITS ---
:1970 Author Care Team Providers Name Role Phone SUNDEEP MATIAS MD Primary Care Provider [phone] Allergies Code Code System Name Reaction Severity [...] 10/30/2019 [facility], [facility] [address], [place] [id number] (Work Place) 10/30/2019 XR, Foot, 3 or More View [facility] ([facility] [employer]) [address] [place] [address] (Work Place) Results Lab Results Date Name Specimen Result Interpretation Description Value Range Status Address ? 10/30/2019 Culture, ? Specimen toe left great ? Final [facility] Superficial Description Reference Wound Laborator[facility] es: [address], [place] ? ? ? Special none ? Final [facility] Requests Referenc e Laboratori es: [address], [place] ? ? ? gram Stain ? ? Final [facility] ate Reference Laboratori es: [address] [...] ? ? Susceptibl Rifampin ? ? Final [place] Reference Laborator[facility]: [address] [...]
[2022-05-01] MEDS: Morphine Sulfate 2 MG/ML CARTRIDGE IVPUSH (02:10)
--- NOTE | 2022-05-01 02:38 | PC.NURSE ---
med rec completed off of recently filled, pt unable to give reliable medication list.
[2022-05-01 02:56] LABS: ~Lactic Acid-LAB USE ONLY 1.8 mmol/L (0.5-2.0)
[2022-05-01] MEDS: Lactated Ringers 1,000 ML 100 ML IVCONT ×2 (04:27→16:44)
[2022-05-01] MEDS: Morphine Sulfate 4 MG/ML CARTRIDGE IVPUSH ×5 (06:34→22:27)
[2022-05-01 07:22] LABS: Glucose, Whole Blood 205 mg/dL (60-115)
[2022-05-01 07:32] LABS: MANUAL DIFF FLAG NO
[2022-05-01] MEDS: Insulin Lispro 100 UNIT/ML 3 ML VIAL SUBCUT ×2 (07:47→11:53)
[2022-05-01] MEDS: Heparin Sodium,Porcine 5,000 UNIT/ML VIAL 5000 UNIT SUBCUT ×2 (07:47→18:29)
[2022-05-01] MEDS: cefEPime HCl 1 GM in 0.9 % Sodium Chloride 50 ML IV ×3 (07:49→22:27)
[2022-05-01 07:52] LABS: Basophils Percent Auto 0.3 % (0-2); Eosinophils Absolute Auto 0.1 X10*3/uL (0.0-0.4); Eosinophils Percent Auto 0.6 % (0-4); Hemoglobin 7.9 g/dl (12.0-16.0); Imm Gran Abs Auto 0.09 X10*3/uL (0.00-0.03); Imm Gran Pct Auto 0.7 % (0.0-0.4); Lymphocytes Absolute Auto 1.6 X10*3/uL (1.2-4.9); Lymphocytes Percent Auto 12.8 % (20-40); Mean Corpuscular HGB Conc 30.4 g/dl (31.0-35.0); Mean Corpuscular Hemoglobin 22.1 pg (27.0-33.0); Mean Corpuscular Volume 72.8 fL (80.0-98.0); Monocytes Absolute Auto 0.6 X10*3/uL (0.1-1.2); Neutrophils Percent Auto 80.6 % (45-73); Red Blood Count 3.57 X10*6/uL (4.20-5.50); Red Cell Distribution Width 17.2 % (11.0-16.0); White Blood Count 12.5 X10*3/uL (4.8-10.8)
[2022-05-01 07:55] LABS: Anion Gap 12 (12-20); Blood Urea Nitrogen 6 mg/dL (9-16); Calcium 7.8 mg/dL (8.4-10.2); Carbon Dioxide 26 mmol/L (22-29); Chloride 100 mmol/L (96-108); Creatinine Clr Calc Pharmacy 86.3; Estimated Glomerular Filt Rate > 60; Glucose Random 216 mg/dL (60-115); Potassium 2.8 mmol/L (3.3-5.1); Sodium 135 mmol/L (135-145)
[2022-05-01 08:02] LABS: Platelet Count 129 X10*3/uL (160-400)
[2022-05-01 08:38] LABS: Erythrocyte Sedimentation Rate 65 MM/HR (0-20)
--- NOTE | 2022-05-01 10:38 | PHA.PROG ---
Admission Date/Time: May 01, 2022 01:53 Indication: BONE Weight in k.5 kg Adjusted body weight in K.3 [place] body weight in K.3 Obesity Dosing Indication % IBW: Serum Creatinine - Last 168 Hours 04/30/22 05/01/22 22:14 07:16 Creatinine 1.43 H 0.79 Estimated CrCl and GFR - Last 168 Hours 04/30/22 05/01/22 22:14 07:16 Estim Creat Clear Calc 50.0 86.3 Estimated GFR 39 > 60 Vancomycin Loading Dose: Current Vancomycin Dosing Regimen:1000 Q12H Vancomycin Monitoring using AUC goal of 400 - 600 range with trough as surrogate marker: 482 Date and Time for next Vancomycin Level to be drawn:05/02/22 @1000 Pharmacist Comments on Vancomycin Plan:PT DID NOT GET LOADING DOSE IN ED, ONLY 1 GM Vancomycin dosing will take advantage of [employer] as a clinical decision support tool that uses Bayesian modeling to calculate individual patient's pharmacokinetic parameters and forecast the patient's drug concentration time course with the target goal AUC 24 range of 400 - 600 mg/L/hr.
--- NOTE | 2022-05-01 10:38 | PHA.MEDREC ---
Addendum entered by Arie Montanez 05/01/22 10:40: Patient's pharmacy confirmed the atorvastatin 80mg, metoprolol 25 mg, clopidogrel 75mg, and furosemide 40mg despite no claim history. Original Note: Pharmacy Consult ? Medication Reconciliation Pharmacy has completed the medication reconciliation.
[2022-05-01] MEDS: Aspirin Enteric Coated 81 MG TABLET.DR PO (10:47)
[2022-05-01] MEDS: Potassium Chloride Packet 20 MEQ PACKET 40 MEQ PO ×2 (10:47→11:53)
[2022-05-01 11:16] LABS: Glucose, Whole Blood 172 mg/dL (60-115)
--- NOTE | 2022-05-01 12:51 | PM.EVENT ---
Event Note Date of Service: 05/01/22 Event Note: Seen and evaluated this morning Complaining of neuropathy in lower extremities with pain, edge of mouth abscess and pain Continue IV antibiotic Pending ID evaluation To get surgical consult for the abscess and wound
[2022-05-01 13:49] LABS: Estimated Average Glucose 235 mg/dL; Hemoglobin A1c % 9.8 %
--- NOTE | 2022-05-01 14:17 | PM.CNGS ---
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 The patient is tearful at times and will not allow me to touch her face. Patient reports that she had incision and drainage down stairs and is still very uncomfortable from that. She reports the abscess on her face appeared about a week ago and has been increasing in size. In reviewing the EMR, she had problems with diabetic foot issues and has seen both Dr. Cantu and Dr. Crawford. She reports pain in addition to chills/shaking. The patient stated flatly that I cannot touch her but would allow me to examine her face with loupe magnification. Review of Systems Review of Systems: Yes all other systems are reviewed and are negative Constitutional: Constitutional: Reports as per [facility] Past Medical History Medical History Asthma Atherosclerotic cardiovascular disease Atrial tachycardia COPD (chronic obstructive pulmonary disease) COVID-19 vaccine series completed Diabetes Diabetic toe ulcer Essential hypertension GERD (gastroesophageal reflux disease) Hypertension Osteomyelitis Family History Family History Mother Hx of CABG Sister CAD (coronary artery disease) Surgical History Surgical History History of esophagogastroduodenoscopy (EGD) History of toe surgery (09/22/21) Social History Social History Household Members: Family Housing: Apartment Do you presently have visiting nurse or other home services: No Alcohol intake: never Patient Tobacco Use Status: Current everyday Tobacco user Tobacco use type: Cigarette Cigarette Packs Per Day: 0.5 Cigarettes Per Day: 10.0 Years Smoked: 43 e-Cigarette/Vaping Use: Never Used Second Hand Smoke Exposure: Yes Advance Directives Date on File: 12/28/20 service: No Current occupational status: unemployed Meds Allergies Allergy/AdvReac Type Severity Reaction Status Date / Time Penicillins [PENICILLINS] Allergy Severe RASH Verified 02/14/22 07:59 amoxicillin [AMOXICILLIN] Allergy Intermediate HIVES Verified 02/11/22 15:09 codeine Allergy Itching Verified 04/17/22 12:14 Active Medications: Current Medications Acetaminophen (Acetaminophen 325 Mg Tablet) 650 mg PO Q6H PRN PRN Reason: Pain, Mild (Pain Scale 1-3) Albuterol Sulfate (Albuterol Sulfate (0.083%) 2.5 Mg/3 Ml Vial.Neb) 2.5 mg INHALE QID PRN PRN Reason: bronchospasm Albuterol Sulfate (Albuterol Sulfate 90 Mcg 8 Gm Inhaler) 1 puff INHALE QID PRN PRN Reason: shortness of breath or wheezing Aspirin (Aspirin Enteric Coated 81 Mg Tablet.Dr) 81 mg PO DAILY [facility] Last Admin: 05/01/22 10:47 Dose: 81 mg Atorvastatin Calcium (Atorvastatin Calcium 80 Mg Tablet) 80 mg PO BEDTIME [facility]NICA Clopidogrel Bisulfate (Clopidogrel Bisulfate 75 Mg Tablet) 75 mg PO DAILY [facility] Dextrose (Dextrose 50 % 25 Gm/50 Ml Syringe) 25 gm IVPUSH Q15M PRN; Protocol PRN Reason: per Hypoglycemia Standing Ord. Docusate Sodium (Docusate Sodium 100 Mg Capsule) 100 mg PO DAILY PRN PRN Reason: Constipation Furosemide (Furosemide 40 Mg Tablet) 40 mg PO DAILY M[facility]NICA; Protocol Gabapentin (Gabapentin 300 Mg Capsule) 600 mg PO BEDTIME M[facility]NICA Glucose (Glucose Gel 15 Gm Gel..Gram.) 15 gm PO Q15M PRN; Protocol PRN Reason: per Hypoglycemia Standing Ord. Heparin Sodium (Porcine) (Heparin Sodium,Porcine 5,000 Unit/Ml Vial) 5,000 unit SUBCUT 0016,1330 [facility] Last Admin: 05/01/22 07:47 Dose: 5,000 unit Hydrochlorothiazide (Hydrochlorothiazide 12.5 Mg Tablet) 12.5 mg PO DAILY [facility]; Protocol Cefepime HCl 1 gm/ Sodium (Chloride) 50 mls @ 100 mls/hr IV Q8H [facility] Last Infusion: 05/01/22 08:30 Dose: Infused Lactated Ringer's (Lr) 1,000 mls @ 100 mls/hr IVCONT .Q10H [facility] Last Admin: 05/01/22 11:32 Dose: Not Given Vancomycin HCl 1,000 mg/ (Sodium Chloride) 270 mls @ 270 mls/hr IV Q12H [facility] Last Infusion: 05/01/22 13:00 Dose: Infused Insulin Glargine (Insulin Glargine,Hum.Rec.Anlog 100 Unit/Ml 10 Ml Vial) 20 unit SUBCUT BEDTIME [facility] Insulin Human Lispro (Insulin Lispro 100 Unit/Ml 3 Ml Vial) 0.1 - 10 unit SUBCUT QIDACHS [facility]; Protocol Last Admin: 05/01/22 11:53 Dose: 2 unit Lisinopril (Lisinopril 20 Mg Tablet) 20 mg PO DAILY [facility] Metoprolol Succinate (Metoprolol Succinate Er 25 Mg Tab.Er.24h) 25 mg PO DAILY [facility]; Protocol Montelukast Sodium (Montelukast Sodium 10 Mg Tablet) 10 mg PO BEDTIME [facility] Morphine Sulfate (Morphine Sulfate 4 Mg/Ml Cartridge) 4 mg IVPUSH Q4H PRN; Protocol PRN Reason: Pain, Severe (Pain Scale 7-10) Last Admin: 05/01/22 10:47 Dose: 4 mg Multivitamins/Vitamin C (Multivitamin Tablet) 1 tab PO DAILY [facility] Last Admin: 05/01/22 14:01 Dose: Not Given Non-Formulary Medication (Umeclidinium [Incruse Ellipta]) 1 puff PO DAILY [facility] Ondansetron HCl (Ondansetron Hcl 4 Mg/2 Ml Vial) 4 mg IVPUSH Q8H PRN PRN Reason: Nausea and Vomiting Pharmacy Consult (Consult Rx Vancomycin Dosing) 1 each MISCELLANE DAILY PRN PRN Reason: Consult order Pharmacy Consult (Consult Rx Perform Med Rec) 1 each MISCELLANE ONCE PRN PRN Reason: Consult order Sodium Chloride (0.9 % Sodium Chloride Flush 3 Ml Syringe) 3 ml IVFLUSH QSHIFT [facility] Last Admin: 05/01/22 07:35 Dose: Not Given Home Medications Medication Instructions Recorded Confirmed Last Taken Type aspirin 81 mg tablet,delayed 1 tab PO DAILY 12/24/20 05/01/22 04/30/22 History release fluticasone propionate 115 2 puff inhalation BID 12/24/20 05/01/22 04/30/22 History mcg-salmeterol 21 mcg/actuation HFA inhaler (Advair HFA) glipizide 5 mg-metformin 500 mg 2 tab PO BID 12/24/20 05/01/22 04/30/22 History tablet lisinopril 20 1 tab PO DAILY 10/31/21 05/01/22 04/30/22 History mg-hydrochlorothiazide 12.5 mg tablet umeclidinium 62.5 mcg/actuation 1 puff PO DAILY 10/31/21 05/01/22 04/30/22 History blister powder for inhalation (Incruse Ellipta) montelukast 10 mg tablet 1 tab PO BEDTIME 02/13/22 05/01/22 04/30/22 History insulin glargine 100 unit/mL (3 20 unit subcut BEDTIME 03/23/22 05/01/22 04/30/22 History mL) subcutaneous pen (Lantus Solostar U-100 Insulin) atorvastatin 80 mg tablet 80 mg PO BEDTIME 05/01/22 05/01/22 04/30/22 History betamethasone dipropionate 0.05 % 1 appl topical BID 05/01/22 05/01/22 04/30/22 History topical ointment clopidogrel 75 mg tablet 75 mg PO DAILY 05/01/22 05/01/22 04/30/22 History furosemide 40 mg tablet 40 mg PO DAILY 05/01/22 05/01/22 04/30/22 History gabapentin 300 mg capsule 2 cap PO BEDTIME 05/01/22 05/01/22 04/30/22 History metoprolol succinate 25 mg 25 mg PO DAILY 05/01/22 05/01/22 04/30/22 History tablet,extended release 24 hr Physical Exam Vital Signs: Vital Signs: Last Vital Signs Temp 96.9 F 05/01/22 11:06 Pulse 92 05/01/22 11:06 Resp 19 05/01/22 11:06 BP 136/65 05/01/22 11:06 Pulse Ox 97 05/01/22 11:06 O2 Del Method 05/01/22 11:06 BMI result Body Mass Index 25.4 On exam, the patient is tearful and physically withdrawing from allowing me to try to examine her face. She agreed to hold still and under loupe magnification, there is an approximately 15 x 20 mm her erythematous and left scabbed area in addition to fissures in the corners of both of her mouth and glossitis with lack of papilla on the tongue. The patient's left plantar foot has a long fissure approximately 12cm; the right foot has thick callus with a 12 x 15 mm ulcer. No crepitance is present and either leg. Results Labs Result diagrams: 05/01/22 07:16 05/01/22 07:16 Labs: Abnormal lab results 04/30/22 04/30/22 04/30/22 Range/Units 22:14 22:14 22:14 WBC 15.7 H (4.8-10.8) X10*3/uL RBC (4.20-5.50) X10*6/uL Hgb 9.7 L (12.0-16.0) g/dl Hct 31.9 L (37.0-47.0) % MCV 73.7 L (80.0-98.0) fL MCH 22.4 L (27.0-33.0) pg MCHC 30.4 L (31.0-35.0) g/dl RDW 16.9 H (11.0-16.0) % Plt Count (160-400) X10*3/uL Immature Gran % (Auto) 0.8 H (0.0-0.4) % Neut % (Auto) 90.9 H (45-73) % Lymph % (Auto) 4.3 L (20-40) % Lymph # (Auto) 0.7 L (1.2-4.9) X10*3/uL Abs Immat Gran (auto) 0.12 H (0.00-0.03) X10*3/uL Absolute Neuts (auto) 14.2 H (2.0-8.3) x10*3/uL ESR (0-20) MM/HR Sodium 126 L (135-145) mmol/L Potassium (3.3-5.1) mmol/L Chloride 86 L (96-108) mmol/L BUN (9-16) mg/dL Creatinine 1.43 H (0.5-1.4) mg/dL POC Glucose (60-115) mg/dL Random Glucose 699 H* D (60-115) mg/dL Lactic Acid 3.0 H* (0.5-2.0) mmol/L Calcium (8.4-10.2) mg/dL C-Reactive Protein 24.16 H (< or = 0.50) mg/dL Total Protein 6.4 L (6.5-8.0) g/dL Urine Protein (Neg-Trace) mg/dL Urine Glucose (UA) (Negative) mg/dL 05/01/22 05/01/22 05/01/22 Range/Units 00:01 01:46 07:10 WBC (4.8-10.8) X10*3/uL RBC (4.20-5.50) X10*6/uL Hgb (12.0-16.0) g/dl Hct (37.0-47.0) % MCV (80.0-98.0) fL MCH (27.0-33.0) pg MCHC (31.0-35.0) g/dl RDW (11.0-16.0) % Plt Count (160-400) X10*3/uL Immature Gran % (Auto) (0.0-0.4) % Neut % (Auto) (45-73) % Lymph % (Auto) (20-40) % Lymph # (Auto) (1.2-4.9) X10*3/uL Abs Immat Gran (auto) (0.00-0.03) X10*3/uL Absolute Neuts (auto) (2.0-8.3) x10*3/uL ESR (0-20) MM/HR Sodium (135-145) mmol/L Potassium (3.3-5.1) mmol/L Chloride (96-108) mmol/L BUN (9-16) mg/dL Creatinine (0.5-1.4) mg/dL POC Glucose 312 H 205 H (60-115) mg/dL Random Glucose (60-115) mg/dL Lactic Acid (0.5-2.0) mmol/L Calcium (8.4-10.2) mg/dL C-Reactive Protein (< or = 0.50) mg/dL Total Protein (6.5-8.0) g/dL Urine Protein 30 (1+) H (Neg-Trace) mg/dL Urine Glucose (UA) >=1000 H (Negative) mg/dL 05/01/22 05/01/22 05/01/22 Range/Units 07:16 07:16 07:16 WBC 12.5 H (4.8-10.8) X10*3/uL RBC 3.57 L (4.20-5.50) X10*6/uL Hgb 7.9 L (12.0-16.0) g/dl Hct 26.0 L (37.0-47.0) % MCV 72.8 L (80.0-98.0) fL MCH 22.1 L (27.0-33.0) pg MCHC 30.4 L (31.0-35.0) g/dl RDW 17.2 H (11.0-16.0) % Plt Count 129 L (160-400) X10*3/uL Immature Gran % (Auto) 0.7 H (0.0-0.4) % Neut % (Auto) 80.6 H (45-73) % Lymph % (Auto) 12.8 L (20-40) % Lymph # (Auto) (1.2-4.9) X10*3/uL Abs Immat Gran (auto) 0.09 H (0.00-0.03) X10*3/uL Absolute Neuts (auto) 10.0 H (2.0-8.3) x10*3/uL ESR 65 H (0-20) MM/HR Sodium (135-145) mmol/L Potassium 2.8 L (3.3-5.1) mmol/L Chloride (96-108) mmol/L BUN 6 L (9-16) mg/dL Creatinine (0.5-1.4) mg/dL POC Glucose (60-115) mg/dL Random Glucose 216 H (60-115) mg/dL Lactic Acid (0.5-2.0) mmol/L Calcium 7.8 L D (8.4-10.2) mg/dL C-Reactive Protein (< or = 0.50) mg/dL Total Protein (6.5-8.0) g/dL Urine Protein (Neg-Trace) mg/dL Urine Glucose (UA) (Negative) mg/dL 05/01/22 Range/Units 11:06 WBC (4.8-10.8) X10*3/uL RBC (4.20-5.50) X10*6/uL Hgb (12.0-16.0) g/dl Hct (37.0-47.0) % MCV (80.0-98.0) fL MCH (27.0-33.0) pg MCHC (31.0-35.0) g/dl RDW (11.0-16.0) % Plt Count (160-400) X10*3/uL Immature Gran % (Auto) (0.0-0.4) % Neut % (Auto) (45-73) % Lymph % (Auto) (20-40) % Lymph # (Auto) (1.2-4.9) X10*3/uL Abs Immat Gran (auto) (0.00-0.03) X10*3/uL Absolute Neuts (auto) (2.0-8.3) x10*3/uL ESR (0-20) MM/HR Sodium (135-145) mmol/L Potassium (3.3-5.1) mmol/L Chloride (96-108) mmol/L BUN (9-16) mg/dL Creatinine (0.5-1.4) mg/dL POC Glucose 172 H (60-115) mg/dL Random Glucose (60-115) mg/dL Lactic Acid (0.5-2.0) mmol/L Calcium (8.4-10.2) mg/dL C-Reactive Protein (< or = 0.50) mg/dL Total Protein (6.5-8.0) g/dL Urine Protein (Neg-Trace) mg/dL Urine Glucose (UA) (Negative) mg/dL Short CBC 04/30/22 05/01/22 Range/Units 22:14 07:16 WBC 15.7 H 12.5 H (4.8-10.8) X10*3/uL Hgb 9.7 L 7.9 L (12.0-16.0) g/dl Hct 31.9 L 26.0 L (37.0-47.0) % Plt Count 160 D 129 L (160-400) X10*3/uL BMP 04/30/22 05/01/22 22:14 07:16 Sodium 126 L 135 Potassium 3.3 D 2.8 L Chloride 86 L 100 Carbon Dioxide 26 26 BUN 9 6 L Creatinine 1.43 H 0.79 Calcium 8.5 D 7.8 L D Liver Function 04/30/22 Range/Units 22:14 Total Bilirubin 0.2 (0.0-1.0) mg/dL AST 8 D (5-31) U/L ALT 9 (0-31) U/L Alkaline Phosphatase 97 (39-117) U/L Albumin 3.5 (3.5-5.0) g/dL Urine 05/01/22 Range/Units 00:01 Urine Color Yellow Urine Appearance Clear Urine pH 6.0 (5.0-9.0) Ur Specific [place] 1.025 (1.005-1.025) Urine Protein 30 (1+) H (Neg-Trace) mg/dL Urine Glucose (UA) >=1000 H (Negative) mg/dL All other labs normal. Assessment and Plan (1) Diabetic foot infection: Status: Acute (2) Hyperglycemia: Status: Acute (3) Dehydration: Status: Acute (4) Osteomyelitis: Status: Acute (5) COPD (chronic obstructive pulmonary disease): Status: Acute (6) Asthma: Status: Acute Plan The patient would not give permission to touch her face and examined the abscess. She stated she would consider it for tomorrow. Patient's glossitis mouth corner fissures may be secondarily infected in secondary to vitamin deficiency. Discussed with the hospitalist and IV antibiotics will be started in addition to multivitamin. Diabetic feet will be evaluated by either Dr. Cantu or Ty tomorrow, 05/02/2022 Procedures Date of Service Date of Service: 05/01/22
[2022-05-01 14:40] LABS: Folate 5.2 ng/mL (> or = 4.0); Vitamin B12 222 pg/mL (200-900)
--- NOTE | 2022-05-01 16:11 | MHC.CM.PN ---
PT REPORTS SHE LIVES WITH HER SO AND ADULT CHILDREN PT IS INDEPENDENT WITH CARE AND HAS DM SUPPLIES FOR DME PT IS ACTIVE WITH [facility] SHE IS UNSURE IF SHE HAS A VNA REFERRAL SENT TO [facility] TO DETERMINE IF SHE IS STILL ACTIVE PT IS COVID VAX X 3 WITH [facility] HCP ON FILE PCP: THAD MAYBERRY DCP: HOME, [facility] FAMILY TO TRANSPORT
[2022-05-01 16:24] LABS: Glucose, Whole Blood 147 mg/dL (60-115)
[2022-05-01 20:18] LABS: Glucose, Whole Blood 142 mg/dL (60-115)
[2022-05-01] MEDS: Atorvastatin Calcium 80 MG TABLET PO (22:25)
[2022-05-01] MEDS: Gabapentin 300 MG CAPSULE 600 MG PO (22:25)
[2022-05-01] MEDS: Insulin Glargine,Hum.rec.anlog 100 UNIT/ML 10 ML VIAL 20 UNIT SUBCUT (22:25)
[2022-05-01] MEDS: Montelukast Sodium 10 MG TABLET PO (22:25)
[2022-05-02] VITALS (7 sets, daily range): BP systolic 111–126; BP diastolic 56–69; PULSE 84–119; RESP 16–18; TEMP 36.1–39; O2SAT 91–98
[2022-05-02] MEDS: Lactated Ringers 1,000 ML 100 ML IVCONT ×2 (03:09→17:22)
[2022-05-02] MEDS: Morphine Sulfate 2 MG/ML CARTRIDGE 4 MG IVPUSH ×5 (03:10→22:01)
[2022-05-02 06:03] LABS: Hematocrit 25.2 % (37.0-47.0); Hemoglobin 7.6 g/dl (12.0-16.0); Mean Corpuscular HGB Conc 30.2 g/dl (31.0-35.0); Mean Corpuscular Hemoglobin 22.4 pg (27.0-33.0); Mean Corpuscular Volume 74.3 fL (80.0-98.0); PLT CLUMP 1; Red Blood Count 3.39 X10*6/uL (4.20-5.50); Red Cell Distribution Width 17.4 % (11.0-16.0)
[2022-05-02 06:08] LABS: Anion Gap 14 (12-20); Blood Urea Nitrogen 9 mg/dL (9-16); Calcium 8.2 mg/dL (8.4-10.2); Carbon Dioxide 26 mmol/L (22-29); Chloride 102 mmol/L (96-108); Creatinine Clr Calc Pharmacy 84.2; Estimated Glomerular Filt Rate > 60; Glucose Random 155 mg/dL (60-115); Potassium 3.7 mmol/L (3.3-5.1); Sodium 138 mmol/L (135-145)
[2022-05-02 06:39] LABS: Platelet Count 143 X10*3/uL (160-400); White Blood Count 12.8 X10*3/uL (4.8-10.8)
[2022-05-02 07:30] LABS: Glucose, Whole Blood 147 mg/dL (60-115)
[2022-05-02] MEDS: Aspirin Enteric Coated 81 MG TABLET.DR PO (08:15)
[2022-05-02] MEDS: Furosemide 40 MG TABLET PO (08:15)
[2022-05-02] MEDS: hydroCHLOROthiazide 12.5 MG TABLET PO (08:15)
[2022-05-02] MEDS: Heparin Sodium,Porcine 5,000 UNIT/ML VIAL 5000 UNIT SUBCUT ×2 (08:15→20:05)
[2022-05-02] MEDS: Multivitamin TABLET 1 TAB PO (08:15)
[2022-05-02] MEDS: Ascorbic Acid 500 MG TABLET PO ×2 (08:16→20:05)
[2022-05-02] MEDS: cefEPime HCl 1 GM in 0.9 % Sodium Chloride 50 ML IV ×2 (08:16→16:04)
[2022-05-02] MEDS: Metoprolol Succinate ER 25 MG TAB.ER.24H PO (08:16)
[2022-05-02] MEDS: Acetaminophen 325 MG TABLET 650 MG PO ×2 (08:16→17:23)
[2022-05-02] MEDS: lisinopriL 20 MG TABLET PO (08:17)
[2022-05-02] MEDS: Clopidogrel Bisulfate 75 MG TABLET PO (08:17)
[2022-05-02 08:20] LABS: Iron 12 mcg/dL (30-160); Percent Iron Saturation 6 % (15-50); Total Iron Binding Capacity 207 mcg/dL (228-428); Unsaturated Iron Binding 195 ug/dL
[2022-05-02 09:30] LABS: Lactic Acid 1.3 mmol/L (0.5-2.0)
[2022-05-02 09:41] LABS: Vancomycin Trough 13.4 mcg/mL (10.0-20.0)
--- NOTE | 2022-05-02 10:40 | HE.PHANOTE ---
Vancomycin Dosing Addendum Patient's level came back this morning at 13.4 mg/L. Patient did not receive proper load. This could be as to why patient is not at goal. Will continue with current regimen 1000 mg Q12H. Predicted AUC 505 mg/L/hr. Next level to be drawn 05/03 at 2100
[2022-05-02 11:08] LABS: Glucose, Whole Blood 175 mg/dL (60-115)
[2022-05-02] MEDS: vancomycin HCL 1,000 MG in 0.9 % Sodium Chloride 250 ML 270 MG IV ×2 (11:35→22:01)
--- NOTE | 2022-05-02 11:36 | MHC.CM.PN ---
PER MD ROUNDS, PT NOT MEDICALLY CLEAR TO DC, AWAITING MRI FOR ? OSTEO DCP TBD BY TREATMENT PLAN PT WILL NEED PLACEMENT IF SHE REQUIRES LT IV ABX
--- NOTE | 2022-05-02 11:40 | MHC.CM.PN ---
PER MD ROUNDS, PT NOT MEDICALLY CLEAR TO DC, AWAITING MRI FOR ? OSTEO DCP TBD BY TREATMENT PLAN
--- NOTE | 2022-05-02 14:32 | PM.PNGS ---
Subjective Subjective Date of Service: 05/02/22 Interval history: Patient is concerned about her right foot plantar surface which is causing some pain. She denies any symptoms from her left foot following the 2nd toe amputation performed on 09/22/2021. Physical Exam Vital Signs: Vital Signs: Last Vital Signs Temp 97.2 F 05/02/22 10:55 Pulse 87 05/02/22 10:55 Resp 17 05/02/22 10:55 BP 114/64 05/02/22 10:55 Pulse Ox 95 05/02/22 10:55 O2 Del Method 05/02/22 10:55 BMI result Body Mass Index 25.4 Const: General: no acute distress and poor hygiene Nutritional Appearance: well nourished Orientation/consciousness: patient oriented x3 Resp: Effort & Inspection: normal respiratory effort Skin: General skin exam: no rashes or lesions noted Neuro: General: patient oriented x3 Extrem: Other: Right foot with a superficial area of purple discoloration on the plantar surface as noted below measuring approximately 2 cm in diameter. A 2nd area in the lateral surface as a similar bluish discoloration with no evidence of infection at this time. Findings may be suggestive of an intradermal hematoma or seroma. No drainage is appreciated. Ankle/foot/toe images: 1. 2. 3. The amputation site Objective Data Active Medications Acetaminophen (Acetaminophen 325 Mg Tablet) 650 mg PO Q6H PRN PRN Reason: Pain, Mild (Pain Scale 1-3) Last Admin: 05/02/22 08:16 Dose: 650 mg Documented By: CAM Albuterol Sulfate (Albuterol Sulfate (0.083%) 2.5 Mg/3 Ml Vial.Chang) 2.5 mg INHALE QID PRN PRN Reason: bronchospasm Albuterol Sulfate (Albuterol Sulfate 90 Mcg 8 Gm Inhaler) 1 puff INHALE QID PRN PRN Reason: shortness of breath or wheezing Ascorbic Acid (Ascorbic Acid 500 Mg Tablet) 500 mg PO BID [facility] Last Admin: 05/02/22 08:16 Dose: 500 mg Documented By: CAM Aspirin (Aspirin Enteric Coated 81 Mg Tablet.) 81 mg PO DAILY [facility] Last Admin: 05/02/22 08:15 Dose: 81 mg Documented By: CAM Atorvastatin Calcium (Atorvastatin Calcium 80 Mg Tablet) 80 mg PO BEDTIME [facility] Last Admin: 05/01/22 22:25 Dose: 80 mg Documented By: CHERY Clopidogrel Bisulfate (Clopidogrel Bisulfate 75 Mg Tablet) 75 mg PO DAILY [facility] Last Admin: 05/02/22 08:17 Dose: 75 mg Documented By: CAM Dextrose (Dextrose 50 % 25 Gm/50 Ml Syringe) 25 gm IVPUSH Q15M PRN; Protocol PRN Reason: per Hypoglycemia Standing Ord. Docusate Sodium (Docusate Sodium 100 Mg Capsule) 100 mg PO DAILY PRN PRN Reason: Constipation Furosemide (Furosemide 40 Mg Tablet) 40 mg PO DAILY [facility]; Protocol Last Admin: 05/02/22 08:15 Dose: 40 mg Documented By: CAM Gabapentin (Gabapentin 300 Mg Capsule) 600 mg PO BEDTIME [facility] Last Admin: 05/01/22 22:25 Dose: 600 mg Documented By: CHERY Glucose (Glucose Gel 15 Gm Gel..Gram.) 15 gm PO Q15M PRN; Protocol PRN Reason: per Hypoglycemia Standing Ord. Heparin Sodium (Porcine) (Heparin Sodium,Porcine 5,000 Unit/Ml Vial) 5,000 unit SUBCUT 7430,0860 [facility] Last Admin: 05/02/22 08:15 Dose: 5,000 unit Documented By: CAM Hydrochlorothiazide (Hydrochlorothiazide 12.5 Mg Tablet) 12.5 mg PO DAILY [facility]; Protocol Last Admin: 05/02/22 08:15 Dose: 12.5 mg Documented By: CAM Cefepime HCl 1 gm/ Sodium (Chloride) 50 mls @ 100 mls/hr IV Q8H [facility] Last Infusion: 05/02/22 08:54 Dose: 0 mls/hr Documented By: CAM Lactated Ringer's (Lr) 1,000 mls @ 100 mls/hr IVCONT .Q10H [facility] Last Infusion: 05/02/22 12:51 Dose: 0 mls/hr Documented By: CAM Vancomycin HCl 1,000 mg/ (Sodium Chloride) 270 mls @ 270 mls/hr IV Q12H [facility] Last Infusion: 05/02/22 14:02 Dose: 0 mls/hr Documented By: CAM Insulin Glargine (Insulin Glargine,Hum.Rec.Anlog 100 Unit/Ml 10 Ml Vial) 20 unit SUBCUT BEDTIME [facility] Last Admin: 05/01/22 22:25 Dose: 20 unit Documented By: CHERY Insulin Human Lispro (Insulin Lispro 100 Unit/Ml 3 Ml Vial) 0.1 - 10 unit SUBCUT QIDACHS [facility]; Protocol Last Admin: 05/02/22 12:57 Dose: Not Given Documented By: CAM Non-Admin Reason: lunch arrived late/pt refused Lisinopril (Lisinopril 20 Mg Tablet) 20 mg PO DAILY [facility] Last Admin: 05/02/22 08:17 Dose: 20 mg Documented By: CAM Metoprolol Succinate (Metoprolol Succinate Er 25 Mg Tab.Er.24h) 25 mg PO DAILY [facility]; Protocol Last Admin: 05/02/22 08:16 Dose: 25 mg Documented By: CAM Montelukast Sodium (Montelukast Sodium 10 Mg Tablet) 10 mg PO BEDTIME [facility] Last Admin: 05/01/22 22:25 Dose: 10 mg Documented By: CHERY Morphine Sulfate (Morphine Sulfate 2 Mg/Ml Cartridge) 4 mg IVPUSH Q4H PRN; Protocol PRN Reason: Pain, Severe (Pain Scale 7-10) Last Admin: 05/02/22 12:58 Dose: 4 mg Documented By: CAM Multivitamins/Vitamin C (Multivitamin Tablet) 1 tab PO DAILY [facility] Last Admin: 05/02/22 08:15 Dose: 1 tab Documented By: CAM Non-Formulary Medication (Umeclidinium [Incruse Ellipta]) 1 puff PO DAILY [facility] Ondansetron HCl (Ondansetron Hcl 4 Mg/2 Ml Vial) 4 mg IVPUSH Q8H PRN PRN Reason: Nausea and Vomiting Pharmacy Consult (Consult Rx Vancomycin Dosing) 1 each MISCELLANE DAILY PRN PRN Reason: Consult order Pharmacy Consult (Consult Rx Perform Med Rec) 1 each MISCELLANE ONCE PRN PRN Reason: Consult order Sodium Chloride (0.9 % Sodium Chloride Flush 3 Ml Syringe) 3 ml IVFLUSH QSHIFT [facility] Last Admin: 05/02/22 08:14 Dose: Not Given Documented By: CAM Non-Admin Reason: IV Running Labs CBC & Chem 7: 05/02/22 05:25 05/02/22 05:25 Labs: Laboratory Results - last 24 hr 05/01/22 05/01/22 05/01/22 07:16 15:15 19:34 MCV MCH MCHC RDW Plt Count MPV Absolute Nucleated RBC Nucleated RBC % (auto) Anion Gap Estim Creat Clear Calc Estimated GFR POC Glucose 147 H 142 H Random Glucose Lactic Acid Calcium Iron TIBC % Saturation Unsat Iron Binding Vitamin B12 222 Folate 5.2 Vancomycin Trough 05/02/22 05/02/22 05/02/22 05:25 05:25 07:21 MCV 74.3 L MCH 22.4 L MCHC 30.2 L RDW 17.4 H Plt Count 143 L MPV Not Reportable Absolute Nucleated RBC 0.000 Nucleated RBC % (auto) 0.0 Anion Gap 14 Estim Creat Clear Calc 84.2 Estimated GFR > 60 POC Glucose 147 H Random Glucose 155 H Lactic Acid Calcium 8.2 L Iron 12 L TIBC 207 L % Saturation 6 L Unsat Iron Binding 195 Vitamin B12 Folate Vancomycin Trough 05/02/22 05/02/22 05/02/22 09:11 09:11 11:00 MCV MCH MCHC RDW Plt Count MPV Absolute Nucleated RBC Nucleated RBC % (auto) Anion Gap Estim Creat Clear Calc Estimated GFR POC Glucose 175 H Random Glucose Lactic Acid 1.3 Calcium Iron TIBC % Saturation Unsat Iron Binding Vitamin B12 Folate Vancomycin Trough 13.4 Microbiology Microbiology Results: Microbiology 04/30/22 23:41 Blood Culture - Preliminary Blood - Venous No growth after 24 hours. 04/30/22 22:14 Blood Culture - Preliminary Blood - Venous No growth after 24 hours. Procedures Date of Service Date of Service: 05/02/22 Progress Note: A&P Assessment and plan (1) Diabetic foot infection: Status: Acute Plan Patient with a known history of diabetic foot ulcers that is 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 now with changes noted in the right foot on the plantar surface. Findings appear suggestive of a intradermal fluid collection although an underlying abscess is certainly possible given the patient's prior history. Agree with MRI of the right foot for further evaluation. Will review the studies once complete. Time Spent With Patient Time: Total time spent is greater than 50% in coordination of care (as documented) at patient's floor/unit and/or counseling patient: Quality Stroke Does the patient have a stroke diagnosis?: No VTE Prior VTE?: No VTE Risk Level:: Medical - moderate - high VTE Device Contraindication: Treatment Not Indicated VTE Drug Contraindication: N/A - Med Ordered
--- NOTE | 2022-05-02 14:44 | HO.PM.IMPN ---
Subjective Subjective Date of Service: 05/02/22 Interval History: the patient was seen and evaluated this morning Laying in bed, feels better already, mouth abscess decreasing in size still having pain in both feet spiked fever with tachycardia this morning No reported other overnight events. Systemic review: No fever, chills or weakness No chest pain, palpitation No shortness of breath or coughing No abdominal pain, nausea or vomiting No urinary symptoms edge of mouth abscess, lower extremity dry deep wound Physical Exam Vital Signs: Vital Signs: Last Vital Signs Temp 97.2 F 05/02/22 10:55 Pulse 87 05/02/22 10:55 Resp 17 05/02/22 10:55 BP 114/64 05/02/22 10:55 Pulse Ox 95 05/02/22 10:55 O2 Del Method 05/02/22 10:55 BMI result Body Mass Index 25.4 Const: Other: Constitutional : Awake, interactive, not in distress Neck : Normal inspection, Supple Cardiovascular : RRR, no JVP, no lower extremity edema Respiratory : good bilateral air entry, no crackles, wheezes or rhonchi Gastrointestinal: soft, lax, Normal bowel sounds, Non tender Skin : Warm, Dry, edge of mouth abscess decreasing in size and tenderness, lower extremity dry deep wound Lt, right foot tenderness , 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 Neurological : Alert & oriented x3, No focal deficit Objective Data Active Medications Acetaminophen (Acetaminophen 325 Mg Tablet) 650 mg PO Q6H PRN PRN Reason: Pain, Mild (Pain Scale 1-3) Last Admin: 05/02/22 08:16 Dose: 650 mg Documented By: CAM Albuterol Sulfate (Albuterol Sulfate (0.083%) 2.5 Mg/3 Ml Vial.Neb) 2.5 mg INHALE QID PRN PRN Reason: bronchospasm Albuterol Sulfate (Albuterol Sulfate 90 Mcg 8 Gm Inhaler) 1 puff INHALE QID PRN PRN Reason: shortness of breath or wheezing Ascorbic Acid (Ascorbic Acid 500 Mg Tablet) 500 mg PO BID [facility] Last Admin: 05/02/22 08:16 Dose: 500 mg Documented By: CAM Aspirin (Aspirin Enteric Coated 81 Mg Tablet.) 81 mg PO DAILY [facility] Last Admin: 05/02/22 08:15 Dose: 81 mg Documented By: CAM Atorvastatin Calcium (Atorvastatin Calcium 80 Mg Tablet) 80 mg PO BEDTIME [facility] Last Admin: 05/01/22 22:25 Dose: 80 mg Documented By: CHERY Clopidogrel Bisulfate (Clopidogrel Bisulfate 75 Mg Tablet) 75 mg PO DAILY [facility] Last Admin: 05/02/22 08:17 Dose: 75 mg Documented By: CAM Dextrose (Dextrose 50 % 25 Gm/50 Ml Syringe) 25 gm IVPUSH Q15M PRN; Protocol PRN Reason: per Hypoglycemia Standing Ord. Docusate Sodium (Docusate Sodium 100 Mg Capsule) 100 mg PO DAILY PRN PRN Reason: Constipation Furosemide (Furosemide 40 Mg Tablet) 40 mg PO DAILY [facility]; Protocol Last Admin: 05/02/22 08:15 Dose: 40 mg Documented By: CAM Gabapentin (Gabapentin 300 Mg Capsule) 600 mg PO BEDTIME [facility] Last Admin: 05/01/22 22:25 Dose: 600 mg Documented By: CHERY Glucose (Glucose Gel 15 Gm Gel..Gram.) 15 gm PO Q15M PRN; Protocol PRN Reason: per Hypoglycemia Standing Ord. Heparin Sodium (Porcine) (Heparin Sodium,Porcine 5,000 Unit/Ml Vial) 5,000 unit SUBCUT [id number] [facility] Last Admin: 05/02/22 08:15 Dose: 5,000 unit Documented By: CAM Hydrochlorothiazide (Hydrochlorothiazide 12.5 Mg Tablet) 12.5 mg PO DAILY [facility]; Protocol Last Admin: 05/02/22 08:15 Dose: 12.5 mg Documented By: CAM Cefepime HCl 1 gm/ Sodium (Chloride) 50 mls @ 100 mls/hr IV Q8H [facility] Last Infusion: 05/02/22 08:54 Dose: 0 mls/hr Documented By: CAM Lactated Ringer's (Lr) 1,000 mls @ 100 mls/hr IVCONT .Q10H [facility] Last Infusion: 05/02/22 12:51 Dose: 0 mls/hr Documented By: CAM Vancomycin HCl 1,000 mg/ (Sodium Chloride) 270 mls @ 270 mls/hr IV Q12H [facility] Last Infusion: 05/02/22 14:02 Dose: 0 mls/hr Documented By: CAM Insulin Glargine (Insulin Glargine,Hum.Rec.Anlog 100 Unit/Ml 10 Ml Vial) 20 unit SUBCUT BEDTIME [facility] Last Admin: 05/01/22 22:25 Dose: 20 unit Documented By: CHERY Insulin Human Lispro (Insulin Lispro 100 Unit/Ml 3 Ml Vial) 0.1 - 10 unit SUBCUT QIDACHS [facility]; Protocol Last Admin: 05/02/22 12:57 Dose: Not Given Documented By: CAM Non-Admin Reason: lunch arrived late/pt refused Lisinopril (Lisinopril 20 Mg Tablet) 20 mg PO DAILY [facility] Last Admin: 05/02/22 08:17 Dose: 20 mg Documented By: CAM Metoprolol Succinate (Metoprolol Succinate Er 25 Mg Tab.Er.24h) 25 mg PO DAILY [facility]; Protocol Last Admin: 05/02/22 08:16 Dose: 25 mg Documented By: CAM Montelukast Sodium (Montelukast Sodium 10 Mg Tablet) 10 mg PO BEDTIME [facility] Last Admin: 05/01/22 22:25 Dose: 10 mg Documented By: CHERY Morphine Sulfate (Morphine Sulfate 2 Mg/Ml Cartridge) 4 mg IVPUSH Q4H PRN; Protocol PRN Reason: Pain, Severe (Pain Scale 7-10) Last Admin: 05/02/22 12:58 Dose: 4 mg Documented By: CAM Multivitamins/Vitamin C (Multivitamin Tablet) 1 tab PO DAILY [facility] Last Admin: 05/02/22 08:15 Dose: 1 tab Documented By: CAM Non-Formulary Medication (Umeclidinium [Incruse Ellipta]) 1 puff PO DAILY [facility] Ondansetron HCl (Ondansetron Hcl 4 Mg/2 Ml Vial) 4 mg IVPUSH Q8H PRN PRN Reason: Nausea and Vomiting Pharmacy Consult (Consult Rx Vancomycin Dosing) 1 each MISCELLANE DAILY PRN PRN Reason: Consult order Pharmacy Consult (Consult Rx Perform Med Rec) 1 each MISCELLANE ONCE PRN PRN Reason: Consult order Sodium Chloride (0.9 % Sodium Chloride Flush 3 Ml Syringe) 3 ml IVFLUSH QSHIFT [facility] Last Admin: 05/02/22 08:14 Dose: Not Given Documented By: CAM Non-Admin Reason: IV Running Labs CBC & Chem 7: 05/02/22 05:25 05/02/22 05:25 Labs: Laboratory Results - last 24 hr 05/01/22 05/01/22 05/02/22 15:15 19:34 05:25 MCV 74.3 L MCH 22.4 L MCHC 30.2 L RDW 17.4 H Plt Count 143 L MPV Not Reportable Absolute Nucleated RBC 0.000 Nucleated RBC % (auto) 0.0 Anion Gap Estim Creat Clear Calc Estimated GFR POC Glucose 147 H 142 H Random Glucose Lactic Acid Calcium Iron TIBC % Saturation Unsat Iron Binding Vancomycin Trough 05/02/22 05/02/22 05/02/22 05:25 07:21 09:11 MCV MCH MCHC RDW Plt Count MPV Absolute Nucleated RBC Nucleated RBC % (auto) Anion Gap 14 Estim Creat Clear Calc 84.2 Estimated GFR > 60 POC Glucose 147 H Random Glucose 155 H Lactic Acid Calcium 8.2 L Iron 12 L TIBC 207 L % Saturation 6 L Unsat Iron Binding 195 Vancomycin Trough 13.4 05/02/22 05/02/22 09:11 11:00 MCV MCH MCHC RDW Plt Count MPV Absolute Nucleated RBC Nucleated RBC % (auto) Anion Gap Estim Creat Clear Calc Estimated GFR POC Glucose 175 H Random Glucose Lactic Acid 1.3 Calcium Iron TIBC % Saturation Unsat Iron Binding Vancomycin Trough Microbiology Microbiology Results: Microbiology 04/30/22 23:41 Blood Culture - Preliminary Blood - Venous No growth after 24 hours. 04/30/22 22:14 Blood Culture - Preliminary Blood - Venous No growth after 24 hours. 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 consult surgery input appreciated # IRAIS secondary to dehydration and sepsis IV fluids, improving follow BMP # hyperglycemia poor compliance with her anti hyperglycemics low-dose sliding scale insulin diabetic diet # hypertension stable continue antihypertensives DVT prophylaxis: Heparin subQ Given patient's sepsis, as well as acute infection requiring IV antibiotics patient require overnight inpatient hospital stay for further management and monitor Quality Stroke Does the patient have a stroke diagnosis?: No VTE Prior VTE?: No VTE Risk Level:: Medical - moderate - high VTE Device Contraindication: Treatment Not Indicated VTE Drug Contraindication: N/A - Med Ordered
--- NOTE | 2022-05-02 15:39 | P.CNID_ITS ---
History of Present Illness Data of Consult Service Date: 05/02/22 Requesting physician: Christoph Anne Primary Care Provider: Unknown Physician HPI Reason for consult: sepsis right foot She presents with one week mouth and foot discomfort. She has redness foot and slightly further up right leg. MRI shows no osteomyelitis but probable nondisplaced fracture distal tuft first phalanx. Review of Systems Review of Systems: Yes all other systems are reviewed and are negative [facility] Past Medical History Medical History Asthma Atherosclerotic cardiovascular disease Atrial tachycardia COPD (chronic obstructive pulmonary disease) COVID-19 vaccine series completed Diabetes Diabetic toe ulcer Essential hypertension GERD (gastroesophageal reflux disease) Hypertension Osteomyelitis Family History Family History Mother Hx of CABG Sister CAD (coronary artery disease) Family history: reviewed and not pertinent Surgical History Surgical History History of esophagogastroduodenoscopy (EGD) History of toe surgery (09/22/21) Social History Social History Household Members: Family Housing: Apartment Do you presently have visiting nurse or other home services: No Alcohol intake: never Patient Tobacco Use Status: Current everyday Tobacco user Tobacco use type: Cigarette Cigarette Packs Per Day: 0.5 Cigarettes Per Day: 10.0 Years Smoked: 43 e-Cigarette/Vaping Use: Never Used Second Hand Smoke Exposure: Yes Advance Directives Date on File: 12/28/20 service: No Current occupational status: unemployed Meds Allergies Allergy/AdvReac Type Severity Reaction Status Date / Time Penicillins [PENICILLINS] Allergy Severe RASH Verified 02/14/22 07:59 amoxicillin [AMOXICILLIN] Allergy Intermediate HIVES Verified 02/11/22 15:09 codeine Allergy Itching Verified 04/17/22 12:14 Active Medications: Current Medications Acetaminophen (Acetaminophen 325 Mg Tablet) 650 mg PO Q6H PRN PRN Reason: Pain, Mild (Pain Scale 1-3) Last Admin: 05/02/22 08:16 Dose: 650 mg Albuterol Sulfate (Albuterol Sulfate (0.083%) 2.5 Mg/3 Ml Vial.Chang) 2.5 mg INHALE QID PRN PRN Reason: bronchospasm Albuterol Sulfate (Albuterol Sulfate 90 Mcg 8 Gm Inhaler) 1 puff INHALE QID PRN PRN Reason: shortness of breath or wheezing Ascorbic Acid (Ascorbic Acid 500 Mg Tablet) 500 mg PO BID [facility] Last Admin: 05/02/22 08:16 Dose: 500 mg Aspirin (Aspirin Enteric Coated 81 Mg Tablet.) 81 mg PO DAILY [facility] Last Admin: 05/02/22 08:15 Dose: 81 mg Atorvastatin Calcium (Atorvastatin Calcium 80 Mg Tablet) 80 mg PO BEDTIME [facility] Last Admin: 05/01/22 22:25 Dose: 80 mg Clopidogrel Bisulfate (Clopidogrel Bisulfate 75 Mg Tablet) 75 mg PO DAILY [facility] Last Admin: 05/02/22 08:17 Dose: 75 mg Dextrose (Dextrose 50 % 25 Gm/50 Ml Syringe) 25 gm IVPUSH Q15M PRN; Protocol PRN Reason: per Hypoglycemia Standing Ord. Docusate Sodium (Docusate Sodium 100 Mg Capsule) 100 mg PO DAILY PRN PRN Reason: Constipation Ferrous Sulfate (Ferrous Sulfate 324 Mg Tablet.) 324 mg PO DAILY [facility] Furosemide (Furosemide 40 Mg Tablet) 40 mg PO DAILY [facility]; Protocol Last Admin: 05/02/22 08:15 Dose: 40 mg Gabapentin (Gabapentin 300 Mg Capsule) 600 mg PO BEDTIME [facility] Last Admin: 05/01/22 22:25 Dose: 600 mg Glucose (Glucose Gel 15 Gm Gel..Gram.) 15 gm PO Q15M PRN; Protocol PRN Reason: per Hypoglycemia Standing Ord. Heparin Sodium (Porcine) (Heparin Sodium,Porcine 5,000 Unit/Ml Vial) 5,000 unit SUBCUT [id number] [facility] Last Admin: 05/02/22 08:15 Dose: 5,000 unit Hydrochlorothiazide (Hydrochlorothiazide 12.5 Mg Tablet) 12.5 mg PO DAILY [facility]; Protocol Last Admin: 05/02/22 08:15 Dose: 12.5 mg Cefepime HCl 1 gm/ Sodium (Chloride) 50 mls @ 100 mls/hr IV Q8H [facility] Last Infusion: 05/02/22 08:54 Dose: Infused Lactated Ringer's (Lr) 1,000 mls @ 100 mls/hr IVCONT .Q10H [facility] Last Infusion: 05/02/22 15:22 Dose: 100 mls/hr Vancomycin HCl 1,000 mg/ (Sodium Chloride) 270 mls @ 270 mls/hr IV Q12H [facility] Last Infusion: 05/02/22 14:02 Dose: Infused Insulin Glargine (Insulin Glargine,Hum.Rec.Anlog 100 Unit/Ml 10 Ml Vial) 20 unit SUBCUT BEDTIME [facility] Last Admin: 05/01/22 22:25 Dose: 20 unit Insulin Human Lispro (Insulin Lispro 100 Unit/Ml 3 Ml Vial) 0.1 - 10 unit SUBCUT QIDACHS [facility]; Protocol Last Admin: 05/02/22 12:57 Dose: Not Given Lisinopril (Lisinopril 20 Mg Tablet) 20 mg PO DAILY [facility] Last Admin: 05/02/22 08:17 Dose: 20 mg Metoprolol Succinate (Metoprolol Succinate Er 25 Mg Tab.Er.24h) 25 mg PO DAILY [facility]; Protocol Last Admin: 05/02/22 08:16 Dose: 25 mg Montelukast Sodium (Montelukast Sodium 10 Mg Tablet) 10 mg PO BEDTIME [facility] Last Admin: 05/01/22 22:25 Dose: 10 mg Morphine Sulfate (Morphine Sulfate 2 Mg/Ml Cartridge) 4 mg IVPUSH Q4H PRN; P rotocol PRN Reason: Pain, Severe (Pain Scale 7-10) Last Admin: 05/02/22 12:58 Dose: 4 mg Multivitamins/Vitamin C (Multivitamin Tablet) 1 tab PO DAILY [facility] Last Admin: 05/02/22 08:15 Dose: 1 tab Non-Formulary Medication (Umeclidinium [Incruse Ellipta]) 1 puff PO DAILY [facility] Ondansetron HCl (Ondansetron Hcl 4 Mg/2 Ml Vial) 4 mg IVPUSH Q8H PRN PRN Reason: Nausea and Vomiting Pharmacy Consult (Consult Rx Vancomycin Dosing) 1 each MISCELLANE DAILY PRN PRN Reason: Consult order Pharmacy Consult (Consult Rx Perform Med Rec) 1 each MISCELLANE ONCE PRN PRN Reason: Consult order Sodium Chloride (0.9 % Sodium Chloride Flush 3 Ml Syringe) 3 ml IVFLUSH QSHIFT [facility] Last Admin: 05/02/22 15:33 Dose: Not Given Home Medications Medication Instructions Recorded Confirmed Last Taken Type aspirin 81 mg tablet,delayed 1 tab PO DAILY 12/24/20 05/01/22 04/30/22 History release fluticasone propionate 115 2 puff inhalation BID 12/24/20 05/01/22 04/30/22 History mcg-salmeterol 21 mcg/actuation HFA inhaler (Advair HFA) glipizide 5 mg-metformin 500 mg 2 tab PO BID 12/24/20 05/01/22 04/30/22 History tablet lisinopril 20 1 tab PO DAILY 10/31/21 05/01/22 04/30/22 History mg-hydrochlorothiazide 12.5 mg tablet umeclidinium 62.5 mcg/actuation 1 puff PO DAILY 10/31/21 05/01/22 04/30/22 History blister powder for inhalation (Incruse Ellipta) montelukast 10 mg tablet 1 tab PO BEDTIME 02/13/22 05/01/22 04/30/22 History insulin glargine 100 unit/mL (3 20 unit subcut BEDTIME 03/23/22 05/01/22 04/30/22 History mL) subcutaneous pen (Lantus Solostar U-100 Insulin) atorvastatin 80 mg tablet 80 mg PO BEDTIME 05/01/22 05/01/22 04/30/22 History betamethasone dipropionate 0.05 % 1 appl topical BID 05/01/22 05/01/22 04/30/22 History topical ointment clopidogrel 75 mg tablet 75 mg PO DAILY 05/01/22 05/01/22 04/30/22 History furosemide 40 mg tablet 40 mg PO DAILY 05/01/22 05/01/22 04/30/22 History gabapentin 300 mg capsule 2 cap PO BEDTIME 05/01/22 05/01/22 04/30/22 History metoprolol succinate 25 mg 25 mg PO DAILY 05/01/22 05/01/22 04/30/22 History tablet,extended release 24 hr Physical Exam Vital Signs: Vital Signs: Last Vital Signs Temp 98.4 F 05/02/22 15:35 Pulse 84 05/02/22 15:35 Resp 16 05/02/22 15:35 BP 119/63 05/02/22 15:35 Pulse Ox 96 05/02/22 15:35 O2 Del Method 05/02/22 15:35 BMI result Body Mass Index 25.4 Const: General: cooperative HEENT: Head: Yes normal to inspection Face and sinus: Yes normal facial exam Mouth: Normal oral and palatal mucosa present Teeth and gingiva: dent ition normal Eyes: General: appearance normal, both eyes and all related structures Pupils: Equal, round and reactive pupils present Resp: Effort & Inspection: normal respiratory effort Cardio: Rate: regular rate Rhythm: regular rhythm GI: Palpation (GI): Soft to palpation and nontender : General: Yes no CVA tenderness Back/Spine/Pelvis: Back: no CVA tenderness Skin: General skin exam: no rashes or lesions noted Neuro: General: moves all extremities Cranial nerves: Yes Equal, round and reactive pupils present Extrem: Other: right foot cellulitis plantar small area right leg reddened laterally chronic area left foot old scarring plantar Psych: Appearance: grossly normal Results Labs CBC & Chem 7: 05/02/22 05:25 05/02/22 05:25 Labs: Short CBC 05/02/22 Range/Units 05:25 WBC 12.8 H (4.8-10.8) X10*3/uL Hgb 7.6 L (12.0-16.0) g/dl Hct 25.2 L (37.0-47.0) % Plt Count 143 L (160-400) X10*3/uL BMP 05/02/22 05:25 Sodium 138 Potassium 3.7 D Chloride 102 Carbon Dioxide 26 BUN 9 Creatinine 0.81 Calcium 8.2 L Microbiology Microbiology Results: Microbiology 04/30/22 23:41 Blood - Venous Blood Culture - Preliminary No growth after 24 hours. 04/30/22 22:14 Blood - Venous Blood Culture - Preliminary No growth after 24 hours. Assessment and Plan (1) Diabetic foot infection: Status: Acute (2) Sepsis: Qualifiers: Acute renal failure type: unspecified Sepsis acute organ dysfunction status: with acute organ dysfunction Sepsis type: sepsis due to unspecified organism Severe sepsis acute organ dysfunction type: acute renal failure Severe sepsis shock status: without septic shock Qualified Code(s): A41.9 - Sepsis, unspecified organism; R65.20 - Severe sepsis without septic shock; N17.9 - Acute kidney failure, unspecified Status: Acute Possible staph or strep or gram negative or anerobe foot Blood cultures pending Plan IV antibiotics Cefepime and Vancomycin and flagyl is appropriate until superficial infection heals foot then possible po Ceftin and flagyl one week but await blood cultures
[2022-05-02] MEDS: Ferrous Sulfate 324 MG TABLET.DR PO (16:04)
[2022-05-02 16:17] LABS: Glucose, Whole Blood 182 mg/dL (60-115)
[2022-05-02] MEDS: Insulin Lispro 100 UNIT/ML 3 ML VIAL SUBCUT ×2 (17:23→20:05)
[2022-05-02] MEDS: Montelukast Sodium 10 MG TABLET PO (20:05)
[2022-05-02] MEDS: Atorvastatin Calcium 80 MG TABLET PO (20:05)
[2022-05-02] MEDS: Gabapentin 300 MG CAPSULE 600 MG PO (20:05)
[2022-05-02] MEDS: Insulin Glargine,Hum.rec.anlog 100 UNIT/ML 10 ML VIAL 20 UNIT SUBCUT (20:06)
[2022-05-02 20:18] LABS: Glucose, Whole Blood 184 mg/dL (60-115)
[2022-05-03] MEDS: cefEPime HCl 1 GM in 0.9 % Sodium Chloride 50 ML IV ×3 (01:05→16:23)
[2022-05-03] MEDS: Morphine Sulfate 2 MG/ML CARTRIDGE 4 MG IVPUSH ×5 (02:16→19:53)
[2022-05-03 03:29] VITALS: BP 140/67; PULSE 101; RESP 20; TEMP 37.8; O2SAT 96
[2022-05-03] MEDS: Lactated Ringers 1,000 ML 100 ML IVCONT (06:20)
[2022-05-03] MEDS: Heparin Sodium,Porcine 5,000 UNIT/ML VIAL 5000 UNIT SUBCUT ×2 (06:31→21:48)
[2022-05-03 07:21] VITALS: BP 128/60; PULSE 108; RESP 19; TEMP 37.9; O2SAT 92
[2022-05-03 07:21] LABS: Glucose, Whole Blood 91 mg/dL (60-115)
[2022-05-03] MEDS: hydroCHLOROthiazide 12.5 MG TABLET PO (07:51)
[2022-05-03] MEDS: Ferrous Sulfate 324 MG TABLET.DR PO (07:52)
[2022-05-03] MEDS: Ascorbic Acid 500 MG TABLET PO ×2 (07:52→19:38)
[2022-05-03] MEDS: Aspirin Enteric Coated 81 MG TABLET.DR PO (07:52)
[2022-05-03] MEDS: lisinopriL 20 MG TABLET PO (07:52)
[2022-05-03] MEDS: Furosemide 40 MG TABLET PO (07:52)
[2022-05-03] MEDS: Clopidogrel Bisulfate 75 MG TABLET PO (07:52)
[2022-05-03] MEDS: Multivitamin TABLET 1 TAB PO (07:52)
[2022-05-03] MEDS: Metoprolol Succinate ER 25 MG TAB.ER.24H PO (07:52)
--- NOTE | 2022-05-03 08:15 | PM.PNGS ---
Subjective Subjective Date of Service: 05/03/22 Interval history: Patient with no complaints, denies any foot pain. Physical Exam Vital Signs: Vital Signs: Last Vital Signs Temp 100.3 F 05/03/22 07:21 Pulse 108 H 05/03/22 07:21 Resp 19 05/03/22 07:21 BP 128/60 05/03/22 07:21 Pulse Ox 92 05/03/22 07:21 O2 Del Method 05/03/22 07:21 BMI result Body Mass Index 25.4 Const: General: no acute distress and poor hygiene Nutritional Appearance: well nourished Orientation/consciousness: patient oriented x3 Resp: Effort & Inspection: normal respiratory effort Skin: General skin exam: no rashes or lesions noted Neuro: General: patient oriented x3 Extrem: Other: Right foot with a superficial area of purple discoloration on the plantar surface as noted below measuring approximately 2 cm in diameter. A 2nd area in the lateral surface with a similar appearance is now open and draining serous fluid. No surrounding erythema is appreciated. Great toe reveals no ulcer or erythema. No tenderness to palpation to indicate underlying fracture. Ankle/foot/toe images: 1. 2. Objective Data Active Medications Acetaminophen (Acetaminophen 325 Mg Tablet) 650 mg PO Q6H PRN PRN Reason: Pain, Mild (Pain Scale 1-3) Last Admin: 05/02/22 17:23 Dose: 650 mg Documented By: CAM Albuterol Sulfate (Albuterol Sulfate (0.083%) 2.5 Mg/3 Ml Vial.Chang) 2.5 mg INHALE QID PRN PRN Reason: bronchospasm Albuterol Sulfate (Albuterol Sulfate 90 Mcg 8 Gm Inhaler) 1 puff INHALE QID PRN PRN Reason: shortness of breath or wheezing Ascorbic Acid (Ascorbic Acid 500 Mg Tablet) 500 mg PO BID [facility] Last Admin: 05/03/22 07:52 Dose: 500 mg Documented By: CAM Aspirin (Aspirin Enteric Coated 81 Mg Tablet.) 81 mg PO DAILY [facility] Last Admin: 05/03/22 07:52 Dose: 81 mg Documented By: CAM Atorvastatin Calcium (Atorvastatin Calcium 80 Mg Tablet) 80 mg PO BEDTIME [facility] Last Admin: 05/02/22 20:05 Dose: 80 mg Documented By: SHANNON Clopidogrel Bisulfate (Clopidogrel Bisulfate 75 Mg Tablet) 75 mg PO DAILY [facility] Last Admin: 05/03/22 07:52 Dose: 75 mg Documented By: CAM Dextrose (Dextrose 50 % 25 Gm/50 Ml Syringe) 25 gm IVPUSH Q15M PRN; Protocol PRN Reason: per Hypoglycemia Standing Ord. Docusate Sodium (Docusate Sodium 100 Mg Capsule) 100 mg PO DAILY PRN PRN Reason: Constipation Ferrous Sulfate (Ferrous Sulfate 324 Mg Tablet.) 324 mg PO DAILY [facility] Last Admin: 05/03/22 07:52 Dose: 324 mg Documented By: CAM Furosemide (Furosemide 40 Mg Tablet) 40 mg PO DAILY [facility]; Protocol Last Admin: 05/03/22 07:52 Dose: 40 mg Documented By: CAM Gabapentin (Gabapentin 300 Mg Capsule) 600 mg PO BEDTIME [facility] Last Admin: 05/02/22 20:05 Dose: 600 mg Documented By: SHANNON Glucose (Glucose Gel 15 Gm Gel..Gram.) 15 gm PO Q15M PRN; Protocol PRN Reason: per Hypoglycemia Standing Ord. Heparin Sodium (Porcine) (Heparin Sodium,Porcine 5,000 Unit/Ml Vial) 5,000 unit SUBCUT 5430,6510 [facility] Last Admin: 05/03/22 06:31 Dose: 5,000 unit Documented By: SHANNON Hydrochlorothiazide (Hydrochlorothiazide 12.5 Mg Tablet) 12.5 mg PO DAILY [facility]; Protocol Last Admin: 05/03/22 07:51 Dose: 12.5 mg Documented By: CAM Cefepime HCl 1 gm/ Sodium (Chloride) 50 mls @ 100 mls/hr IV Q8H [facility] Last Admin: 05/03/22 07:47 Dose: 100 mls/hr Documented By: CAM Vancomycin HCl 1,000 mg/ (Sodium Chloride) 270 mls @ 270 mls/hr IV Q12H [facility] Last Infusion: 05/02/22 23:22 Dose: 0 mls/hr Documented By: SHANNON Metronidazole (Flagyl) 500 mg in 100 mls @ 100 mls/hr IV Q8H [facility] Insulin Glargine (Insulin Glargine,Hum.Rec.Anlog 100 Unit/Ml 10 Ml Vial) 20 unit SUBCUT BEDTIME [facility] Last Admin: 05/02/22 20:06 Dose: 20 unit Documented By: SHANNON Insulin Human Lispro (Insulin Lispro 100 Unit/Ml 3 Ml Vial) 0.1 - 10 unit SUBCUT QIDACHS [facility]; Protocol Last Admin: 05/03/22 07:27 Dose: Not Given Documented By: CAM Non-Admin Reason: No Insulin Coverage Lisinopril (Lisinopril 20 Mg Tablet) 20 mg PO DAILY [facility] Last Admin: 05/03/22 07:52 Dose: 20 mg Documented By: CAM Metoprolol Succinate (Metoprolol Succinate Er 25 Mg Tab.Er.24h) 25 mg PO DAILY [facility]; Protocol Last Admin: 05/03/22 07:52 Dose: 25 mg Documented By: CAM Montelukast Sodium (Montelukast Sodium 10 Mg Tablet) 10 mg PO BEDTIME [facility] Last Admin: 05/02/22 20:05 Dose: 10 mg Documented By: SHANNON Morphine Sulfate (Morphine Sulfate 2 Mg/Ml Cartridge) 4 mg IVPUSH Q4H PRN; Protocol PRN Reason: Pain, Severe (Pain Scale 7-10) Last Admin: 05/03/22 06:24 Dose: 4 mg Documented By: SHANNON Multivitamins/Vitamin C (Multivitamin Tablet) 1 tab PO DAILY [facility] Last Admin: 05/03/22 07:52 Dose: 1 tab Documented By: CAM Non-Formulary Medication (Umeclidinium [Incruse Ellipta]) 1 puff PO DAILY [facility] Ondansetron HCl (Ondansetron Hcl 4 Mg/2 Ml Vial) 4 mg IVPUSH Q8H PRN PRN Reason: Nausea and Vomiting Pharmacy Consult (Consult Rx Vancomycin Dosing) 1 each MISCELLANE DAILY PRN PRN Reason: Consult order Pharmacy Consult (Consult Rx Perform Med Rec) 1 each MISCELLANE ONCE PRN PRN Reason: Consult order Sodium Chloride (0.9 % Sodium Chloride Flush 3 Ml Syringe) 3 ml IVFLUSH QSHIFT [facility] Last Admin: 05/03/22 07:27 Dose: Not Given Documented By: CAM Non-Admin Reason: IV Running Labs CBC & Chem 7: 05/02/22 05:25 05/02/22 05:25 Labs: Laboratory Results - last 24 hr 05/02/22 05/02/2222 05:25 09:11 09:11 POC Glucose Lactic Acid 1.3 Iron 12 L TIBC 207 L % Saturation 6 L Unsat Iron Binding 195 Vancomycin Trough 13.4 05/02/22 05/02/22 05/02/22 11:00 15:38 19:12 POC Glucose 175 H 182 H 184 H Lactic Acid Iron TIBC % Saturation Unsat Iron Binding Vancomycin Trough 05/03/22 07:17 POC Glucose 91 Lactic Acid Iron TIBC % Saturation Unsat Iron Binding Vancomycin Trough Imaging MRI foot left: Radiologist's impression: Impressions Foot MRI 05/02/22 10:30 IMPRESSION: 1. Probable nondisplaced fracture of the tuft of the1st distal phalanx. Correlate clinically. 2. Marked subcutaneous edema throughout the dorsum of the foot, possibly cellulitis. No abscess or underlying osteomyelitis. 3. 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 Microbiology Microbiology Results: Microbiology 04/30/22 23:41 Blood Culture - Preliminary Blood - Venous No growth after 48 hours. 04/30/22 22:14 Blood Culture - Preliminary Blood - Venous No growth after 48 hours. Procedures Date of Service Date of Service: 05/03/22 Progress Note: A&P Assessment and plan (1) Diabetic foot infection: Status: Acute (2) Cellulitis of right foot: Status: Acute Plan 51-year-old female patient with diabetic foot ulcer right foot previous history of osteomyelitis of the left 2nd toe. Patient has 2 draining wounds of the right foot but no evidence of osteo by MRI. Antibiotics as per Infectious Disease. Will have patient follow up in office upon discharge for further wound care. Patient encouraged to keep feet covered at all times when walking. Her feet are exceptionally dirty which will not help with wound care. Time Spent With Patient Time: Total time spent is greater than 50% in coordination of care (as documented) at patient's floor/unit and/or counseling patient: Quality Stroke Does the patient have a stroke diagnosis?: No VTE Prior VTE?: No VTE Risk Level:: Medical - moderate - high VTE Device Contraindication: Treatment Not Indicated VTE Drug Contraindication: N/A - Med Ordered
[2022-05-03 08:39] LABS: Hemoglobin 7.8 g/dl (12.0-16.0); Mean Corpuscular HGB Conc 31.2 g/dl (31.0-35.0); Mean Corpuscular Hemoglobin 22.8 pg (27.0-33.0); Mean Corpuscular Volume 73.1 fL (80.0-98.0); Platelet Count 181 X10*3/uL (160-400); Red Blood Count 3.42 X10*6/uL (4.20-5.50); Red Cell Distribution Width 17.7 % (11.0-16.0); White Blood Count 10.8 X10*3/uL (4.8-10.8)
[2022-05-03 08:54] LABS: Anion Gap 13 (12-20); Blood Urea Nitrogen 11 mg/dL (9-16); Calcium 8.3 mg/dL (8.4-10.2); Carbon Dioxide 30 mmol/L (22-29); Chloride 100 mmol/L (96-108); Creatinine Clr Calc Pharmacy 87.4; Estimated Glomerular Filt Rate > 60; Glucose Random 119 mg/dL (60-115); Sodium 140 mmol/L (135-145)
[2022-05-03] MEDS: metroNIDAZOLE/NS 500 MG/100 ML PIGGYBACK 100 MG IV ×2 (09:39→16:56)
--- NOTE | 2022-05-03 10:15 | HO.PM.IMPN ---
Subjective Subjective Date of Service: 05/03/22 Interval History: the patient was seen and evaluated this morning feels better, mouth abscess decreasing in size still having pain in both feet but overall better spiked fever with tachycardia again this morning No reported other overnight events. Systemic review: No fever, chills or weakness No chest pain, palpitation No shortness of breath or coughing No abdominal pain, nausea or vomiting No urinary symptoms edge of mouth abscess, lower extremity dry deep wound , Right foot wound Physical Exam Vital Signs: Vital Signs: Last Vital Signs Temp 100.3 F 05/03/22 07:21 Pulse 108 H 05/03/22 07:21 Resp 19 05/03/22 07:21 BP 128/60 05/03/22 07:21 Pulse Ox 92 05/03/22 07:21 O2 Del Method 05/03/22 07:21 BMI result Body Mass Index 25.4 Const: Other: Constitutional : Awake, interactive, not in distress Neck : Normal inspection, Supple Cardiovascular : RRR, no JVP, no lower extremity edema Respiratory : good bilateral air entry, no crackles, wheezes or rhonchi Gastrointestinal: soft, lax, Normal bowel sounds, Non tender Skin : Warm, Dry, edge of mouth abscess decreasing in size and tenderness, lower extremity dry deep wound Lt, right foot tenderness with erythema and warmth, 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 Neurological : Alert & oriented x3, No focal deficit Objective Data Active Medications Acetaminophen (Acetaminophen 325 Mg Tablet) 650 mg PO Q6H PRN PRN Reason: Pain, Mild (Pain Scale 1-3) Last Admin: 05/02/22 17:23 Dose: 650 mg Documented By: CAM Albuterol Sulfate (Albuterol Sulfate (0.083%) 2.5 Mg/3 Ml Vial.[facility]) 2.5 mg INHALE QID PRN PRN Reason: bronchospasm Albuterol Sulfate (Albuterol Sulfate 90 Mcg 8 Gm Inhaler) 1 puff INHALE QID PRN PRN Reason: shortness of breath or wheezing Ascorbic Acid (Ascorbic Acid 500 Mg Tablet) 500 mg PO BID [facility] Last Admin: 05/03/22 07:52 Dose: 500 mg Documented By: CAM Aspirin (Aspirin Enteric Coated 81 Mg Tablet.) 81 mg PO DAILY [facility] Last Admin: 05/03/22 07:52 Dose: 81 mg Documented By: CAM Atorvastatin Calcium (Atorvastatin Calcium 80 Mg Tablet) 80 mg PO BEDTIME [facility] Last Admin: 05/02/22 20:05 Dose: 80 mg Documented By: SHANNON Clopidogrel Bisulfate (Clopidogrel Bisulfate 75 Mg Tablet) 75 mg PO DAILY [facility] Last Admin: 05/03/22 07:52 Dose: 75 mg Documented By: CAM Dextrose (Dextrose 50 % 25 Gm/50 Ml Syringe) 25 gm IVPUSH Q15M PRN; Protocol PRN Reason: per Hypoglycemia Standing Ord. Docusate Sodium (Docusate Sodium 100 Mg Capsule) 100 mg PO DAILY PRN PRN Reason: Constipation Ferrous Sulfate (Ferrous Sulfate 324 Mg Tablet.Dr) 324 mg PO DAILY [facility] Last Admin: 05/03/22 07:52 Dose: 324 mg Documented By: CAM Furosemide (Furosemide 40 Mg Tablet) 40 mg PO DAILY [facility]; Protocol Last Admin: 05/03/22 07:52 Dose: 40 mg Documented By: CAM Gabapentin (Gabapentin 300 Mg Capsule) 600 mg PO BEDTIME [facility] Last Admin: 05/02/22 20:05 Dose: 600 mg Documented By: SHANNON Glucose (Glucose Gel 15 Gm Gel..Gram.) 15 gm PO Q15M PRN; Protocol PRN Reason: per Hypoglycemia Standing Ord. Heparin Sodium (Porcine) (Heparin Sodium,Porcine 5,000 Unit/Ml Vial) 5,000 unit SUBCUT 9278,6080 [facility] Last Admin: 05/03/22 06:31 Dose: 5,000 unit Documented By: SHANNON Hydrochlorothiazide (Hydrochlorothiazide 12.5 Mg Tablet) 12.5 mg PO DAILY [facility]; Protocol Last Admin: 05/03/22 07:51 Dose: 12.5 mg Documented By: CAM Cefepime HCl 1 gm/ Sodium (Chloride) 50 mls @ 100 mls/hr IV Q8H [facility] Last Infusion: 05/03/22 08:28 Dose: 0 mls/hr Documented By: CAM Vancomycin HCl 1,000 mg/ (Sodium Chloride) 270 mls @ 270 mls/hr IV Q12H [facility] Last Infusion: 05/02/22 23:22 Dose: 0 mls/hr Documented By: SHANNON Metronidazole (Flagyl) 500 mg in 100 mls @ 100 mls/hr IV Q8H [facility] Last Admin: 05/03/22 09:39 Dose: 100 mls/hr Documented By: CAM Insulin Glargine (Insulin Glargine,Hum.Rec.Anlog 100 Unit/Ml 10 Ml Vial) 20 unit SUBCUT BEDTIME [facility] Last Admin: 05/02/22 20:06 Dose: 20 unit Documented By: SHANNON Insulin Human Lispro (Insulin Lispro 100 Unit/Ml 3 Ml Vial) 0.1 - 10 unit SUBCUT QIDACHS [facility]; Protocol Last Admin: 05/03/22 07:27 Dose: Not Given Documented By: CAM Non-Admin Reason: No Insulin Coverage Lisinopril (Lisinopril 20 Mg Tablet) 20 mg PO DAILY [facility] Last Admin: 05/03/22 07:52 Dose: 20 mg Documented By: CAM Metoprolol Succinate (Metoprolol Succinate Er 25 Mg Tab.Er.24h) 25 mg PO DAILY [facility]; Protocol Last Admin: 05/03/22 07:52 Dose: 25 mg Documented By: CAM Montelukast Sodium (Montelukast Sodium 10 Mg Tablet) 10 mg PO BEDTIME [facility] Last Admin: 05/02/22 20:05 Dose: 10 mg Documented By: SHANNON Morphine Sulfate (Morphine Sulfate 2 Mg/Ml Cartridge) 4 mg IVPUSH Q4H PRN; Protocol PRN Reason: Pain, Severe (Pain Scale 7-10) Last Admin: 05/03/22 06:24 Dose: 4 mg Documented By: SHANNON Multivitamins/Vitamin C (Multivitamin Tablet) 1 tab PO DAILY [facility] Last Admin: 05/03/22 07:52 Dose: 1 tab Documented By: CAM Non-Formulary Medication (Umeclidinium [Incruse Ellipta]) 1 puff PO DAILY [facility] Ondansetron HCl (Ondansetron Hcl 4 Mg/2 Ml Vial) 4 mg IVPUSH Q8H PRN PRN Reason: Nausea and Vomiting Pharmacy Consult (Consult Rx Vancomycin Dosing) 1 each MISCELLANE DAILY PRN PRN Reason: Consult order Pharmacy Consult (Consult Rx Perform Med Rec) 1 each MISCELLANE ONCE PRN PRN Reason: Consult order Sodium Chloride (0.9 % Sodium Chloride Flush 3 Ml Syringe) 3 ml IVFLUSH QSHIFT [facility] Last Admin: 05/03/22 07:27 Dose: Not Given Documented By: CAM Non-Admin Reason: IV Running Labs CBC & Chem 7: 05/03/22 08:12 05/03/22 08:12 Labs: Laboratory Results - last 24 hr 05/02/22 05/02/22 05/02/22 11:00 15:38 19:12 MCV MCH MCHC RDW Plt Count MPV Absolute Nucleated RBC Nucleated RBC % (auto) Anion Gap Estim Creat Clear Calc Estimated GFR POC Glucose 175 H 182 H 184 H Random Glucose Calcium 05/03/22 05/03/22 05/03/22 07:17 08:12 08:12 MCV 73.1 L MCH 22.8 L MCHC 31.2 RDW 17.7 H Plt Count 181 D MPV Not Reportable Absolute Nucleated RBC 0.000 Nucleated RBC % (auto) 0.0 Anion Gap Estim Creat Clear Calc Cancelled Estimated GFR Cancelled POC Glucose 91 Random Glucose Calcium 05/03/22 08:12 MCV MCH MCHC RDW Plt Count MPV Absolute Nucleated RBC Nucleated RBC % (auto) Anion Gap 13 Estim Creat Clear Calc 87.4 Estimated GFR > 60 POC Glucose Random Glucose 119 H Calcium 8.3 L Microbiology Microbiology Results: Microbiology 04/30/22 23:41 Blood Culture - Preliminary Blood - Venous No growth after 48 hours. 04/30/22 22:14 Blood Culture - Preliminary Blood - Venous No growth after 48 hours. 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 consult appreciated surgery input appreciated, follow with dr Cantu after discharge for wound care # Hypokalemia K of 3 to give replacement and follow bmp # IRAIS secondary to dehydration and sepsis improved back to baseline follow BMP # hyperglycemia 2/2 DM type 2 on insulin better controlled poor compliance with her anti hyperglycemics low-dose sliding scale insulin diabetic diet # hypertension stable continue antihypertensives DVT prophylaxis: Heparin subQ Given patient's fever and acute DFI requiring IV antibiotics patient require overnight inpatient hospital stay for further management and monitor Quality Stroke Does the patient have a stroke diagnosis?: No VTE Prior VTE?: No VTE Risk Level:: Medical - moderate - high VTE Device Contraindication: Treatment Not Indicated VTE Drug Contraindication: N/A - Med Ordered
[2022-05-03] MEDS: vancomycin HCL 1,000 MG in 0.9 % Sodium Chloride 250 ML 270 MG IV (10:51)
[2022-05-03] MEDS: Potassium Chloride Packet 20 MEQ PACKET 40 MEQ PO (10:52)
[2022-05-03 11:01] LABS: Glucose, Whole Blood 116 mg/dL (60-115)
[2022-05-03 11:03] VITALS: BP 112/62; PULSE 98; RESP 18; TEMP 37.5; O2SAT 94
--- NOTE | 2022-05-03 14:27 | PM.EVENT ---
Event Note Date of Service: 05/03/22 Event Note: Doxycycline and Augmentin for 10 days return if worse
[2022-05-03 15:22] VITALS: BP 121/58; PULSE 90; RESP 17; TEMP 37.5; O2SAT 95
[2022-05-03 15:45] LABS: Glucose, Whole Blood 122 mg/dL (60-115)
[2022-05-03] MEDS: 0.9 % Sodium Chloride Flush 3 ML SYRINGE IVFLUSH (16:23)
[2022-05-03 19:31] LABS: Glucose, Whole Blood 153 mg/dL (60-115)
[2022-05-03] MEDS: Atorvastatin Calcium 80 MG TABLET PO (19:39)
[2022-05-03] MEDS: Montelukast Sodium 10 MG TABLET PO (19:39)
[2022-05-03] MEDS: Gabapentin 300 MG CAPSULE 600 MG PO (19:39)
[2022-05-03] MEDS: Insulin Glargine,Hum.rec.anlog 100 UNIT/ML 10 ML VIAL 20 UNIT SUBCUT (19:39)
[2022-05-03] MEDS: Insulin Lispro 100 UNIT/ML 3 ML VIAL SUBCUT (19:53)
[2022-05-03 20:00] VITALS: BP 133/62; PULSE 95; RESP 18; TEMP 37.7; O2SAT 95
[2022-05-03 21:39] LABS: Vancomycin Random 17.3 mcg/mL (15-20)
--- NOTE | 2022-05-03 21:48 | HE.PHANOTE ---
RE CHRISTINE CHANGING DOSE TO 750MG Q12H; NEXT TROUGH 05/05 @0900 AMINAH
[2022-05-03] MEDS: vancomycin HCL 750 MG in 0.9 % Sodium Chloride 250 ML 265 MG IV (22:59)
[2022-05-03 23:29] VITALS: BP 121/65; PULSE 97; RESP 18; TEMP 38.8; O2SAT 97
[2022-05-04] MEDS: Morphine Sulfate 2 MG/ML CARTRIDGE 4 MG IVPUSH ×2 (00:18→06:26)
[2022-05-04] MEDS: cefEPime HCl 1 GM in 0.9 % Sodium Chloride 50 ML IV ×2 (00:19→07:51)
[2022-05-04] MEDS: metroNIDAZOLE/NS 500 MG/100 ML PIGGYBACK 100 MG IV (00:24)
[2022-05-04 03:34] VITALS: BP 122/61; PULSE 97; RESP 20; TEMP 37.8; O2SAT 98
[2022-05-04 06:41] LABS: Hematocrit 25.3 % (37.0-47.0); Hemoglobin 7.6 g/dl (12.0-16.0); Mean Corpuscular Volume 73.1 fL (80.0-98.0); Platelet Count 201 X10*3/uL (160-400); Red Blood Count 3.46 X10*6/uL (4.20-5.50); Red Cell Distribution Width 17.9 % (11.0-16.0); White Blood Count 8.5 X10*3/uL (4.8-10.8)
[2022-05-04 06:59] LABS: Creatinine Clr Calc Pharmacy 90.9; Estimated Glomerular Filt Rate > 60
[2022-05-04 07:01] LABS: Anion Gap 16 (12-20); Blood Urea Nitrogen 10 mg/dL (9-16); Calcium 8.1 mg/dL (8.4-10.2); Carbon Dioxide 29 mmol/L (22-29); Chloride 97 mmol/L (96-108); Creatinine Clr Calc Pharmacy 90.9; Estimated Glomerular Filt Rate > 60; Glucose Random 60 mg/dL (60-115); Sodium 139 mmol/L (135-145)
[2022-05-04 07:08] VITALS: BP 131/62; PULSE 95; RESP 19; TEMP 36.5; O2SAT 95
[2022-05-04 07:26] LABS: Glucose, Whole Blood 58 mg/dL (60-115)
[2022-05-04] MEDS: hydroCHLOROthiazide 12.5 MG TABLET PO (07:52)
[2022-05-04] MEDS: Ascorbic Acid 500 MG TABLET PO (07:52)
[2022-05-04] MEDS: lisinopriL 20 MG TABLET PO (07:52)
[2022-05-04] MEDS: Metoprolol Succinate ER 25 MG TAB.ER.24H PO (07:52)
[2022-05-04] MEDS: Multivitamin TABLET 1 TAB PO (07:52)
[2022-05-04] MEDS: Ferrous Sulfate 324 MG TABLET.DR PO (07:53)
[2022-05-04] MEDS: Furosemide 40 MG TABLET PO (07:53)
[2022-05-04] MEDS: Potassium Chloride ER 20 MEQ TAB.ER.PRT 40 MEQ PO (08:42)
[2022-05-04] MEDS: Magnesium Oxide 400 MG TABLET PO (08:42)
[2022-05-04 08:53] LABS: Glucose, Whole Blood 185 mg/dL (60-115)
--- NOTE | 2022-05-04 09:42 | PM.DS ---
DS: Providers Provider Date of Service: 05/04/22 Date of admission: 05/01/22 01:53 Primary care physician: Emilie Dangelo MD Consults: 05/01/22 01:50 Consult to Infectious Diseases Routine Consulting Provider: Angie Padilla Reason for consultation: foot infection Has provider been notified: No 05/01/22 12:52 Consult to General Surgery Routine Consulting Provider: Luther Albarran Reason for consultation: facial abscess, deep dry open wound LLE for kind eval DS: Diagnosis Discharge Diagnosis (1) Diabetic foot infection: Status: Acute (2) Hyperglycemia: Status: Acute (3) Sepsis: Status: Acute DS: Summary Hospital Course Hospital Course: from initial hpi: Chief Complaint: mouth pain , feet pain 51-year-old female with past medical history of asthma, atherosclerotic cardiovascular disease, diabetes, hypertension, GERD, history of osteomyelitis, history of oral thrush, COPD, presents to the hospital with complaints of mouth pain as well as bilateral foot pain to the point where she has difficulty walking.? Patient reports that she developed an ulcer at her mouth about a week ago, very painful, she has also noticed lower extremity pain specially in her right foot, associated with swelling, erythema, numbness and inability to walk on her feet due to the pain.? She reports no fever chills.? Patient has ulcer at the bottom of her right foot, she denies walking barefoot or having any injury at the bottom of her foot, ports no fever, some chills, she is crying, stating the pain is 10/10, reports no IV drug use.? Denies any chest pain, no shortness of breath, no abdominal pain nausea or vomiting, no diarrhea constipation, no urinary symptoms.? On arrival to the ED patient hemodynamically stable but became tacky cardiac but stable blood pressure Labs are significant for WBC count of 15.7, hemoglobin of 9.7, hematocrit 31.9, creatinine of 1.43, glucose of 699, CRP of 24.16, UA negative, X-ray of foot bilaterally negative. Patient started on IV antibiotics and will be admitted for further management hospital course: Patient was admitted for sepsis secondary to diabetic foot infection cellulitis. She was put on IV vancomycin, cefepime, Flagyl. Foot MRI was negative for osteomyelitis. Blood culture negative, however, patient continued to have fevers. Recommendations were to continue monitoring on IV antibiotics until defervesce since, however, patient wished to leave against medical advice, she is aware of the risk of doing so including . For hypokalemia she was given replacement. For acute kidney injury it improved back to baseline with hydration. For diabetes with hyperglycemia was better controlled with insulin. For hypertension she was continued on her antihypertensives. Time Spent with Patient Time attestation: Total time spent providing and/or coordinating discharge services: Discharge coordination time: Greater than 30 minutes Quality: Safe Use of Opioids Does Pt have an Active Cancer Diagnosis on the Problem List?: No Quality: Stroke Does the patient have a stroke diagnosis?: No Physical Exam Vital Signs: Vital Signs: Last Vital Signs Temp 97.7 F 05/04/22 07:08 Pulse 95 05/04/22 07:08 Resp 19 05/04/22 07:08 BP 131/62 05/04/22 07:08 Pulse Ox 95 05/04/22 07:08 O2 Del Method 05/04/22 07:08 BMI result Body Mass Index 25.4 Const: Other: Constitutional : Awake, interactive, not in distress Neck : Normal inspection, Supple Cardiovascular : RRR, no JVP, no lower extremity edema Respiratory : good bilateral air entry, no crackles, wheezes or rhonchi Gastrointestinal: soft, lax, Normal bowel sounds, Non tender Skin : Warm, Dry, edge of mouth abscess decreasing in size and tenderness, lower extremity dry deep wound Lt, right foot tenderness with erythema and warmth, 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 Neurological : Alert & oriented x3, No focal deficit DS: Data Data Completed and Pending Completed studies during hospitalization [Text1]: Procedures Drainage of Left Foot Skin, External Approach (11/18/21) Excision of Left Foot Subcutaneous Tissue and Fascia, Open Approach (11/18/21) Insertion of Infusion Device into Superior Vena Cava, Percutaneous Approach (08/21/21) Labs on day of discharge: Laboratory Results - last 24 hr 05/03/22 05/03/22 05/03/22 10:57 15:17 19:16 WBC RBC Hgb Hct MCV MCH MCHC RDW Plt Count MPV Absolute Nucleated RBC Nucleated RBC % (auto) Sodium Potassium Chloride Carbon Dioxide Anion Gap BUN Creatinine Estim Creat Clear Calc Estimated GFR POC Glucose 116 H 122 H 153 H Random Glucose Calcium Random Vancomycin 11/05/04/22 05/04/22 21:00 05:54 05:54 WBC 8.5 RBC 3.46 L Hgb 7.6 L Hct 25.3 L MCV 73.1 L MCH 22.0 L MCHC 30.0 L RDW 17.9 H Plt Count 201 MPV Not Reportable Absolute Nucleated RBC 0.000 Nucleated RBC % (auto) 0.0 Sodium 139 Potassium 3.0 L Chloride 97 Carbon Dioxide 29 Anion Gap 16 BUN 10 Creatinine 0.75 Estim Creat Clear Calc 90.9 Estimated GFR > 60 POC Glucose Random Glucose 60 Calcium 8.1 L Random Vancomycin 17.3 05/04/22 05/04/22 05/04/22 05:54 07:13 08:39 WBC RBC Hgb Hct MCV MCH MCHC RDW Plt Count MPV Absolute Nucleated RBC Nucleated RBC % (auto) Sodium Potassium Chloride Carbon Dioxide Anion Gap BUN Creatinine 0.75 Estim Creat Clear Calc 90.9 Estimated GFR > 60 POC Glucose 58 L* 185 H Random Glucose Calcium Random Vancomycin Preliminary micro results at discharge 05/02/22 09:10 Blood Culture - Preliminary Blood - Venous No growth after 24 hours. 05/02/22 09:11 Blood Culture - Preliminary Blood - Venous No growth after 24 hours. 04/30/22 23:41 Blood Culture - Preliminary Blood - Venous No growth after 48 hours. 04/30/22 22:14 Blood Culture - Preliminary Blood - Venous No growth after 48 hours. Discharge Plan Discharge Anticipated Discharge Date/Time: 05/04/22 09:40 Patient Disposition: Left Against Medical Advice Discharge Diagnosis: sepsis Referrals: Emilie Dangelo MD [Primary Care Provider] - 1 Week Discharge Medications: New doxycycline hyclate 100 mg tablet 100 mg PO BID Qty: 20 0RF cefuroxime axetil 500 mg tablet 500 mg PO Q12H Qty: 20 0RF Continued aspirin 81 mg tablet,delayed release (DR/EC) 1 tab PO DAILY glipizide-metformin 5-500 mg tablet 2 tab PO BID Advair HFA 115-21 mcg/actuation HFA aerosol inhaler 2 puff inhalation BID lisinopril-hydrochlorothiazide 20-12.5 mg tablet 1 tab PO DAILY Incruse Ellipta 62.5 mcg/actuation blister with device 1 puff PO DAILY montelukast 10 mg tablet 1 tab PO BEDTIME albuterol sulfate 2.5 mg /3 mL (0.083 %) solution for nebulization 2.5 mg inhalation QID PRN (Reason: bronchospasm) Qty: 90 0RF insulin glargine [Lantus Solostar U-100 Insulin] 100 unit/mL (3 mL) insulin pen 20 unit subcut BEDTIME gabapentin 300 mg capsule 2 cap PO BEDTIME betamethasone dipropionate 0.05 % ointment 1 appl TOPICAL BID Rx Instructions: apply to affected area furosemide 40 mg Tablet 40 mg PO DAILY atorvastatin 80 mg Tablet 80 mg PO BEDTIME clopidogrel 75 mg Tablet 75 mg PO DAILY metoprolol succinate 25 mg Tablet Extended Release 24 Hr 25 mg PO DAILY albuterol sulfate 90 mcg/actuation HFA aerosol inhaler 1 inh inhalation QID PRN (Reason: shortness of breath or wheezing) Qty: 8.5 0RF Discharge Orders: Discharge Order (Routine); Ordered 05/04/22 Ordered By: Jaren Schrader Diet: Diabetic diet Activity on Discharge: As tolerated Care Plan Goals: recovery Health Concerns: sepsis Plan of Treatment: should stay in hospital, take po abx for now Assessment: see above
--- NOTE | 2022-05-04 09:43 | MHC.CM.PN ---
Patient left AMA.
[2022-05-04] MEDS: Heparin Sodium,Porcine 5,000 UNIT/ML VIAL 5000 UNIT SUBCUT (09:56)
--- NOTE | 2022-05-04 10:23 | HE.PHANOTE ---
Vancomycin Dosing Addendum Patient's renal function is stable. Level to be drawn tomorrow, 05/05 @ 0900. Continue dose 750 mg Q12H. Predicted AUC 587 mg/L/hr
[2022-05-08 13:31] LABS: Vitamin B1 <6 nmol/L (8-30)
== END 2022-05-04 10:45 | disposition left against medical advice (07) | DRG 720 ==
LOC: HO.ED 05-01 00:19 → HO.EDOVER 05-01 01:57 → HO.S3 05-01 05:43
PROVIDERS: Student in an Organized Health Care Education/Training Program; Surgery; Admitting Provider Internal Medicine; Emergency Provider Student in an Organized Health Care Education/Training Program; PCP Internal Medicine; Visit Provider Internal Medicine
DX: A41.9 Sepsis, unspecified organism (principal); N17.9 Acute kidney failure, unspecified; E11.40 Type 2 diabetes mellitus with diabetic neuropathy, unspecified; L97.419 Non-pressure chronic ulcer of right heel and midfoot with unspecified severity; E11.621 Type 2 diabetes mellitus with foot ulcer; L03.115 Cellulitis of right lower limb; L02.01 Cutaneous abscess of face; E86.0 Dehydration; E11.65 Type 2 diabetes mellitus with hyperglycemia; E87.6 Hypokalemia; I25.10 Atherosclerotic heart disease of native coronary artery without angina pectoris; J44.9 Chronic obstructive pulmonary disease, unspecified; I10 Essential (primary) hypertension; F17.210 Nicotine dependence, cigarettes, uncomplicated; R65.20 Severe sepsis without septic shock; Z20.822 Contact with and (suspected) exposure to COVID-19; Z71.6 Tobacco abuse counseling; Z91.14 Patient's other noncompliance with medication regimen; Z88.0 Allergy status to penicillin; Z88.5 Allergy status to narcotic agent; Z79.4 Long term (current) use of insulin; Z79.02 Long term (current) use of antithrombotics/antiplatelets; Z79.82 Long term (current) use of aspirin; Z79.899 Other long term (current) drug therapy
CPT/HCPCS: 36415; 73620; 73630; 73720; 80048; 80053; 80202; 81001; 82009; 82565; 82607; 82746; 82947; 83036; 83540; 83605; 84425; 85025; 85027; 85652; 86140; 87040; 87635; 93005; 99285; A9585; J0692; J0696; J2270; J3370

== ENCOUNTER 2022-05-13 14:35 | Emergency (ER) | payer MEDICAID, SELFPAY ==
--- NOTE | ~2022-05-13 | XR_ITS ---
EXAMINATION: XR CHEST CLINICAL INFORMATION: Shortness of breath COMPARISON: 04/17/2022 TECHNIQUE: Frontal view of the chest was obtained. FINDINGS: Mild patchy interstitial infiltrates, in both lungs most prominent in the right midlung are suspicious for early pneumonia. Heart and pulmonary vessels are normal. XR/XR chest 1V IMPRESSION: Probable early pneumonitis. Recommend follow-up PA lateral.
[2022-05-13 14:50] VITALS: BP 142/82; BP 147/84; PULSE 104; PULSE 108; RESP 18; TEMP 36.8; O2SAT 100; O2SAT 98; BMI 26.5
--- OUTSIDE RECORDS SUMMARY | 2022-05-13 15:02 | XMS_ITS ---
:1970 Author Care Team Providers Name Role Phone SUNDEEP MATIAS MD Primary Care Provider [phone] Allergies Code Code System Name Reaction Severity [...] 10/30/2019 XR, To[facility] [address], [place] [id number] (Work Place) 10/30/2019 XR, Foot, 3 or More View [facility] ([facility] [employer]) [address] [place] [address] (Work Place) Results Lab Results Date Name Specimen Result Interpretation Description Value Range Status Address ? 10/30/2019 Culture, ? Specimen toe left great ? Final [facility] Superficial Description Reference Wound Laboratori es: [address], [place] ? ? ? Special none ? Final [facility] Requests Referenc e Laboratori es: [address], [place] ? ? ? gram Stain ? ? Final [facility] ate Reference Laboratori es: [address] [...] ? ? Susceptibl Rifampin ? ? Final [place] [facility] Reference Laboratori es: [address] [...]
[2022-05-13 15:19] LABS: MANUAL DIFF FLAG NO
[2022-05-13] MEDS: Albuterol Sulfate 7.5 MG, Albuterol/Iprat 2.5/0.5MG 3 ML 3 ML INHALE (15:20)
[2022-05-13 15:22] VITALS: PULSE 104; RESP 16; O2SAT 98
[2022-05-13 15:23] LABS: Venous Blood Gas Refer to POC result
[2022-05-13 15:24] LABS: VBG Base Excess 5.4 mmol/L; VBG HCO3 28 mmol/L (22-26); VBG pCO2 36 mmHg; VBG pH 7.49 (7.32-7.43); VBG pO2 47 mmHg
[2022-05-13 15:26] LABS: Basophils Absolute Auto 0.1 X10*3/uL (0.0-0.2); Basophils Percent Auto 0.5 % (0-2); Eosinophils Absolute Auto 0.1 X10*3/uL (0.0-0.4); Eosinophils Percent Auto 0.5 % (0-4); Hematocrit 30.5 % (37.0-47.0); Hemoglobin 9.2 g/dl (12.0-16.0); Imm Gran Abs Auto 0.04 X10*3/uL (0.00-0.03); Imm Gran Pct Auto 0.4 % (0.0-0.4); Lymphocytes Absolute Auto 1.2 X10*3/uL (1.2-4.9); Lymphocytes Percent Auto 11.6 % (20-40); Mean Corpuscular HGB Conc 30.2 g/dl (31.0-35.0); Mean Corpuscular Hemoglobin 22.2 pg (27.0-33.0); Mean Corpuscular Volume 73.5 fL (80.0-98.0); Mean Platelet Volume 10.9 fL (9.4-12.3); Monocytes Absolute Auto 0.3 X10*3/uL (0.1-1.2); Monocytes Percent Auto 2.6 % (2-11); Neutrophils Absolute Auto 8.6 x10*3/uL (2.0-8.3); Neutrophils Percent Auto 84.4 % (45-73); Platelet Count 405 X10*3/uL (160-400); Red Blood Count 4.15 X10*6/uL (4.20-5.50); Red Cell Distribution Width 17.6 % (11.0-16.0); White Blood Count 10.2 X10*3/uL (4.8-10.8)
[2022-05-13 15:29] VITALS: BP 136/74; PULSE 111; RESP 13; TEMP 36.6; O2SAT 97
--- NOTE | 2022-05-13 15:45 | ED.GENADULT ---
HPI - General Adult General Chief complaint: General Medical Stated complaint: SOB Time Seen by Provider: 05/13/22 14:48 Source: patient Mode of arrival: EMS History of Present Illness HPI narrative: 51-year-old female with history of diabetes presents via EMS for complaints of shortness of breath and foot pain bilaterally for 7 days and is now complaining of right elbow pain. Patient signed out against medical advice on 05/04 and was discharged on doxycycline and cefuroxime. She denies any chest pain/palpitations or new cough/sore throat med otherwise denies any GI or symptoms. Related Data Home Medications Medication Instructions Recorded Confirmed aspirin 81 mg tablet,delayed 1 tab PO DAILY 12/24/20 05/01/22 release fluticasone propionate 115 2 puff inhalation BID 12/24/20 05/01/22 mcg-salmeterol 21 mcg/actuation HFA inhaler (Advair HFA) glipizide 5 mg-metformin 500 mg 2 tab PO BID 12/24/20 05/01/22 tablet lisinopril 20 1 tab PO DAILY 10/31/21 05/01/22 mg-hydrochlorothiazide 12.5 mg tablet umeclidinium 62.5 mcg/actuation 1 puff PO DAILY 10/31/21 05/01/22 blister powder for inhalation (Incruse Ellipta) montelukast 10 mg tablet 1 tab PO BEDTIME 02/13/22 05/01/22 insulin glargine 100 unit/mL (3 20 unit subcut BEDTIME 03/23/22 05/01/22 mL) subcutaneous pen (Lantus Solostar U-100 Insulin) atorvastatin 80 mg tablet 80 mg PO BEDTIME 05/01/22 05/01/22 betamethasone dipropionate 0.05 % 1 appl topical BID 05/01/22 05/01/22 topical ointment clopidogrel 75 mg tablet 75 mg PO DAILY 05/01/22 05/01/22 furosemide 40 mg tablet 40 mg PO DAILY 05/01/22 05/01/22 gabapentin 300 mg capsule 2 cap PO BEDTIME 05/01/22 05/01/22 metoprolol succinate 25 mg 25 mg PO DAILY 05/01/22 05/01/22 tablet,extended release 24 hr Previous Rx's Medication Instructions Recorded albuterol sulfate 2.5 mg/3 mL 2.5 mg (3 mL) inhalation QID PRN 03/15/22 (0.083 %) solution for nebulization bronchospasm #90 mL albuterol sulfate 90 mcg/actuation 1 inh inhalation QID PRN shortness 04/17/22 aerosol inhaler of breath or wheezing #8.5 grams cefuroxime axetil 500 mg tablet 500 mg PO Q12H #20 tabs 05/04/22 doxycycline hyclate 100 mg tablet 100 mg PO BID #20 tabs 05/04/22 Allergies Allergy/AdvReac Type Severity Reaction Status Date / Time Penicillins [PENICILLINS] Allergy Severe RASH Verified 02/14/22 07:59 amoxicillin [AMOXICILLIN] Allergy Intermediate HIVES Verified 02/11/22 15:09 codeine Allergy Itching Verified 04/17/22 12:14 Review of Systems Review of Systems: Pertinent positives and negatives as stated HPI 10 point review of systems is otherwise negative. [facility] Past Medical History Source: nursing notes reviewed Medical History Asthma Atherosclerotic cardiovascular disease Atrial tachycardia COPD (chronic obstructive pulmonary disease) COVID-19 vaccine series completed Diabetes Diabetic toe ulcer Essential hypertension GERD (gastroesophageal reflux disease) Hypertension Osteomyelitis Surgical History History of esophagogastroduodenoscopy (EGD) History of toe surgery (09/22/21) Family History Family History Mother Hx of CABG Sister CAD (coronary artery disease) Social History Social History Household Members: Family Housing: Apartment Do you presently have visiting nurse or other home services: No Alcohol intake: never Patient Tobacco Use Status: Current everyday Tobacco user Tobacco use type: Cigarette Cigarette Packs Per Day: 0.5 Cigarettes Per Day: 10.0 Years Smoked: 43 e-Cigarette/Vaping Use: Never Used Second Hand Smoke Exposure: Yes Advance Directives: Yes Advance Directives Information Provided: Yes Advance Directives on File: No Advance Directives Date on File: 12/28/20 Patient : No service: No Current occupational status: unemployed Physical Exam ED Vital Signs: Vital Signs - 24 hr 05/13/22 14:50 05/13/22 15:22 05/13/22 15:29 Temperature 98.2 F 97.8 F Pulse Rate 104 H 104 H 111 H Respiratory Rate 18 16 13 Blood Pressure 147/84 H 136/74 Pulse Oximetry 100 97 Oxygen Delivery Method Nasal Cannula Nasal Cannula Oxygen Flow Rate 2 BMI result Body Mass Index 26.5 VITAL SIGNS: Reviewed. GENERAL: Well developed, well nourished, in no acute distress. HEAD: Normocephalic/atraumatic EYES: PERRLA, EOMI EARS: Ext canals without abnormality OROPHARYNX: no oral lesions noted, posterior pharynx clear LUNGS: Normal breath sounds. No adventitious sounds or accessory muscle use. SpO2<100> CARDIOVASCULAR: Regular rate and rhythm without noted murmurs, no JVD or lower extremity edema. ABDOMEN: Soft, non-tender, non-distended with bowel sounds. MUSCULOSKELETAL: No tenderness, deformities, or effusions noted on gross inspection. EXTREMITIES: No cyanosis, clubbing or edema; BILATERAL FOOT: Although still mildly edematous with residual evidence to suggest infection they are significantly improved from the last evaluation when patient presented to me on 05/01. SKIN: Inspection of the skin reveals no rashes NEUROLOGIC: Alert and oriented x 3. Strength and sensation to light touch were grossly intact x 4. Course Course Course Narrative: 51-year-old female with history and clinical presentation and will rule out COPD/CHF. It appears it patient signed out against medical advice on 05/04 and likely would have benefited from continued IV antibiotics given the degree of abscesses that patient was suffering from. Signed out to Dr. Kenny Marin as per workup. Medications Administered Discontinued Medications Generic Name Dose Route Start Last Admin Trade Name Angel PRN Reason Stop Dose Admin Albuterol Sulfate 7.5 mg/ 0 mg 05/13/22 14:54 05/13/22 15:20 Albuterol/Ipratropium 3 ml INHALE 05/13/22 14:55 2.5 each ONCE ONE Administration Medical Decision Making Lab Data Result diagrams: 05/13/22 15:11 05/13/22 15:11 Labs: Lab Results 05/13/22 05/13/22 05/13/22 Range/Units 15:11 15:11 15:11 WBC 10.2 (4.8-10.8) X10*3/uL RBC 4.15 L (4.20-5.50) X10*6/uL Hgb 9.2 L D (12.0-16.0) g/dl Hct 30.5 L D (37.0-47.0) % MCV 73.5 L (80.0-98.0) fL MCH 22.2 L (27.0-33.0) pg MCHC 30.2 L (31.0-35.0) g/dl RDW 17.6 H (11.0-16.0) % Plt Count 405 H D (160-400) X10*3/uL MPV 10.9 (9.4-12.3) fL Immature Gran % (Auto) 0.4 (0.0-0.4) % Neut % (Auto) 84.4 H (45-73) % Lymph % (Auto) 11.6 L (20-40) % [place] % (Auto) 2.6 (2-11) % Eos % (Auto) 0.5 (0-4) % Baso % (Auto) 0.5 (0-2) % Lymph # (Auto) 1.2 (1.2-4.9) X10*3/uL [place] # (Auto) 0.3 (0.1-1.2) X10*3/uL Eos # (Auto) 0.1 (0.0-0.4) X10*3/uL Baso # (Auto) 0.1 (0.0-0.2) X10*3/uL Abs Immat Gran (auto) 0.04 H (0.00-0.03) X10*3/uL Absolute Neuts (auto) 8.6 H (2.0-8.3) x10*3/uL Absolute Nucleated RBC 0.000 (0.0-0.012) X10*3/uL Nucleated RBC % (auto) 0.0 (0.0-0.2) /100WBC VBG pH (7.32-7.43) VBG pCO2 mmHg VBG pO2 mmHg VBG HCO3 (22-26) mmol/L VBG O2 Saturation % VBG Base Excess mmol/L Sodium 131 L (135-145) mmol/L Potassium 4.2 D (3.3-5.1) mmol/L Chloride 93 L (96-108) mmol/L Carbon Dioxide 28 (22-29) mmol/L Anion Gap 14 (12-20) BUN 10 (9-16) mg/dL Creatinine 0.89 (0.5-1.4) mg/dL Estim Creat Clear Calc 70.0 Estimated GFR > 60 Random Glucose 430 H* (60-115) mg/dL Lactic Acid 2.6 H* (0.5-2.0) mmol/L Calcium 9.4 D (8.4-10.2) mg/dL Total Bilirubin 0.4 (0.0-1.0) mg/dL AST 4 L (5-31) U/L ALT < 6 (0-31) U/L Alkaline Phosphatase 104 (39-117) U/L B-Natriuretic Peptide (<100) pg/mL Total Protein 6.7 (6.5-8.0) g/dL Albumin 3.6 (3.5-5.0) g/dL Influenza Type A (PCR) (Negative) Influenza Type B (PCR) (Negative) RSV RNA Qual (PCR) (Negative) SARS-CoV-2 RNA (RT-PCR) (Negative) 05/13/22 05/13/22 05/13/22 Range/Units 15:11 15:17 15:31 WBC (4.8-10.8) X10*3/uL RBC (4.20-5.50) X10*6/uL Hgb (12.0-16.0) g/dl Hct (37.0-47.0) % MCV (80.0-98.0) fL MCH (27.0-33.0) pg MCHC (31.0-35.0) g/dl RDW (11.0-16.0) % Plt Count (160-400) X10*3/uL MPV (9.4-12.3) fL Immature Gran % (Auto) (0.0-0.4) % Neut % (Auto) (45-73) % Lymph % (Auto) (20-40) % [place] % (Auto) (2-11) % Eos % (Auto) (0-4) % Baso % (Auto) (0-2) % Lymph # (Auto) (1.2-4.9) X10*3/uL [place] # (Auto) (0.1-1.2) X10*3/uL Eos # (Auto) (0.0-0.4) X10*3/uL Baso # (Auto) (0.0-0.2) X10*3/uL Abs Immat Gran (auto) (0.00-0.03) X10*3/uL Absolute Neuts (auto) (2.0-8.3) x10*3/uL Absolute Nucleated RBC (0.0-0.012) X10*3/uL Nucleated RBC % (auto) (0.0-0.2) /100WBC VBG pH 7.49 H (7.32-7.43) VBG pCO2 36 mmHg VBG pO2 47 mmHg VBG HCO3 28 H (22-26) mmol/L VBG O2 Saturation 74.0 % VBG Base Excess 5.4 mmol/L Sodium (135-145) mmol/L Potassium (3.3-5.1) mmol/L Chloride (96-108) mmol/L Carbon Dioxide (22-29) mmol/L Anion Gap (12-20) BUN (9-16) mg/dL Creatinine (0.5-1.4) mg/dL Estim Creat Clear Calc Estimated GFR Random Glucose (60-115) mg/dL Lactic Acid (0.5-2.0) mmol/L Calcium (8.4-10.2) mg/dL Total Bilirubin (0.0-1.0) mg/dL AST (5-31) U/L ALT (0-31) U/L Alkaline Phosphatase (39-117) U/L B-Natriuretic Peptide 1558 H (<100) pg/mL Total Protein (6.5-8.0) g/dL Albumin (3.5-5.0) g/dL Influenza Type A (PCR) NEGATIVE (Negative) Influenza Type B (PCR) NEGATIVE (Negative) RSV RNA Qual (PCR) NEGATIVE (Negative) SARS-CoV-2 RNA (RT-PCR) NEGATIVE (Negative) Discharge Plan Discharge Clinical Impression: Dyspnea Patient Disposition: Still a Patient Prescriptions: No Action aspirin 81 mg tablet,delayed release (DR/EC) 1 tab PO DAILY glipizide-metformin 5-500 mg tablet 2 tab PO BID Advair HFA 115-21 mcg/actuation HFA aerosol inhaler 2 puff inhalation BID lisinopril-hydrochlorothiazide 20-12.5 mg tablet 1 tab PO DAILY Incruse Ellipta 62.5 mcg/actuation blister with device 1 puff PO DAILY montelukast 10 mg tablet 1 tab PO BEDTIME albuterol sulfate 2.5 mg /3 mL (0.083 %) solution for nebulization 2.5 mg inhalation QID PRN (Reason: bronchospasm) Qty: 90 0RF insulin glargine [Lantus Solostar U-100 Insulin] 100 unit/mL (3 mL) insulin pen 20 unit subcut BEDTIME gabapentin 300 mg capsule 2 cap PO BEDTIME betamethasone dipropionate 0.05 % ointment 1 appl TOPICAL BID Rx Instructions: apply to affected area furosemide 40 mg Tablet 40 mg PO DAILY atorvastatin 80 mg Tablet 80 mg PO BEDTIME clopidogrel 75 mg Tablet 75 mg PO DAILY metoprolol succinate 25 mg Tablet Extended Release 24 Hr 25 mg PO DAILY doxycycline hyclate 100 mg tablet 100 mg PO BID Qty: 20 0RF cefuroxime axetil 500 mg tablet 500 mg PO Q12H Qty: 20 0RF albuterol sulfate 90 mcg/actuation HFA aerosol inhaler 1 inh inhalation QID PRN (Reason: shortness of breath or wheezing) Qty: 8.5 0RF
[2022-05-13 15:53] LABS: Lactic Acid 2.6 mmol/L (0.5-2.0)
[2022-05-13 15:54] LABS: Alanine Aminotransferase < 6 U/L (0-31); Albumin Level 3.6 g/dL (3.5-5.0); Alkaline Phosphatase 104 U/L (39-117); Anion Gap 14 (12-20); Aspartate Amino Transferase 4 U/L (5-31); Bilirubin Total 0.4 mg/dL (0.0-1.0); Blood Urea Nitrogen 10 mg/dL (9-16); Calcium 9.4 mg/dL (8.4-10.2); Carbon Dioxide 28 mmol/L (22-29); Chloride 93 mmol/L (96-108); Estimated Glomerular Filt Rate > 60; Glucose Random 430 mg/dL (60-115); Potassium 4.2 mmol/L (3.3-5.1); Sodium 131 mmol/L (135-145); Total Protein 6.7 g/dL (6.5-8.0)
--- NOTE | 2022-05-13 16:00 | PC.NURSE ---
patient a/ox4 . heart rate regular at 103 beats per minute . breathing even and unlabored . wheezes noted in upper lobes , slightly diminished . skin is dusky warm and dry .patients feet bilaterally are both extremely dry with non pitting edema , along with wounds she reports already being treated for . Patient reports 10 out of 10 pain for her feet . abdomen is soft with positive bowel sounds throughout . I.V placed in right A.C with labs obtained and sent . R.T at bedside for treatment . Xray at bedside . patient on flat sheet maker . patient aware of plan of care .
[2022-05-13 16:22] LABS: Influenza A PCR NEGATIVE (Negative); Influenza B PCR NEGATIVE (Negative); Resp Syncy Virus RNA Qual PCR NEGATIVE (Negative); SARS COV2 PCR INHOUSE NEGATIVE (Negative)
[2022-05-13 16:35] LABS: B Type Natriuretic Peptide 1558 pg/mL (<100)
--- NOTE | 2022-05-13 16:57 | ED_ITS ---
HPI - General Adult General Chief complaint: General Medical Stated complaint: SOB Time Seen by Provider: 05/13/22 14:48 Source: patient Mode of arrival: EMS Related Data Home Medications Medication Instructions Recorded Confirmed aspirin 81 mg tablet,delayed 1 tab PO DAILY 12/24/20 05/01/22 release fluticasone propionate 115 2 puff inhalation BID 12/24/20 05/01/22 mcg-salmeterol 21 mcg/actuation HFA inhaler (Advair HFA) glipizide 5 mg-metformin 500 mg 2 tab PO BID 12/24/20 05/01/22 tablet lisinopril 20 1 tab PO DAILY 10/31/21 05/01/22 mg-hydrochlorothiazide 12.5 mg tablet umeclidinium 62.5 mcg/actuation 1 puff PO DAILY 10/31/21 05/01/22 blister powder for inhalation (Incruse Ellipta) montelukast 10 mg tablet 1 tab PO BEDTIME 02/13/22 05/01/22 insulin glargine 100 unit/mL (3 20 unit subcut BEDTIME 03/23/22 05/01/22 mL) subcutaneous pen (Lantus Solostar U-100 Insulin) atorvastatin 80 mg tablet 80 mg PO BEDTIME 05/01/22 05/01/22 betamethasone dipropionate 0.05 % 1 appl topical BID 05/01/22 05/01/22 topical ointment clopidogrel 75 mg tablet 75 mg PO DAILY 05/01/22 05/01/22 furosemide 40 mg tablet 40 mg PO DAILY 05/01/22 05/01/22 gabapentin 300 mg capsule 2 cap PO BEDTIME 05/01/22 05/01/22 metoprolol succinate 25 mg 25 mg PO DAILY 05/01/22 05/01/22 tablet,extended release 24 hr Previous Rx's Medication Instructions Recorded albuterol sulfate 2.5 mg/3 mL 2.5 mg (3 mL) inhalation QID PRN 03/15/22 (0.083 %) solution for nebulization bronchospasm #90 mL albuterol sulfate 90 mcg/actuation 1 inh inhalation QID PRN shortness 04/17/22 aerosol inhaler of breath or wheezing #8.5 grams cefuroxime axetil 500 mg tablet 500 mg PO Q12H #20 tabs 05/04/22 doxycycline hyclate 100 mg tablet 100 mg PO BID #20 tabs 05/04/22 Allergies Allergy/AdvReac Type Severity Reaction Status Date / Time Penicillins [PENICILLINS] Allergy Severe RASH Verified 02/14/22 07:59 amoxicillin [AMOXICILLIN] Allergy Intermediate HIVES Verified 02/11/22 15:09 codeine Allergy Itching Verified 04/17/22 12:14 PMFSH Past Medical History Medical History Asthma Atherosclerotic cardiovascular disease Atrial tachycardia COPD (chronic obstructive pulmonary disease) COVID-19 vaccine series completed Diabetes Diabetic toe ulcer Essential hypertension GERD (gastroesophageal reflux disease) Hypertension Osteomyelitis Surgical History History of esophagogastroduodenoscopy (EGD) History of toe surgery (09/22/21) Family History Family History Mother Hx of CABG Sister CAD (coronary artery disease) Social History Social History Household Members: Family Housing: Apartment Do you presently have visiting nurse or other home services: No Alcohol intake: never Patient Tobacco Use Status: Current everyday Tobacco user Tobacco use type: Cigarette Cigarette Packs Per Day: 0.5 Cigarettes Per Day: 10.0 Years Smoked: 43 e-Cigarette/Vaping Use: Never Used Second Hand Smoke Exposure: Yes Advance Directives: Yes Advance Directives Information Provided: Yes Advance Directives on File: No Advance Directives Date on File: 12/28/20 Patient : No service: No Current occupational status: unemployed Physical Exam ED Vital Signs: Vital Signs - 24 hr 05/13/22 14:50 05/13/22 15:22 05/13/22 15:29 Temperature 98.2 F 97.8 F Pulse Rate 104 H 104 H 111 H Respiratory Rate 18 16 13 Blood Pressure 147/84 H 136/74 Pulse Oximetry 100 97 Oxygen Delivery Method Nasal Cannula Nasal Cannula Oxygen Flow Rate 2 BMI result Body Mass Index 26.5 Medications Administered Discontinued Medications Generic Name Dose Route Start Last Admin Trade Name Freq PRN Reason Stop Dose Admin Albuterol Sulfate 7.5 mg/ 0 mg 05/13/22 14:54 05/13/22 15:20 Albuterol/Ipratropium 3 ml INHALE 05/13/22 14:55 2.5 each ONCE ONE Administration Medical Decision Making MDM Narrative Medical decision making narrative: Took over patient's case at the change of shift. At approximately 17:00. Patient's chest x-ray showed bilateral infiltrate question pneumonitis versus congestive heart failure. BNP elevated. Patient's white count is normal. History of infection to the foot. Currently still on antibiotics. Patient offered admission. IV Lasix. History of COPD currently not O2 dependent. Her flu COVID RSV were all negative. Patient is vaccinated for COVID. Offered steroids and treatment. Patient has chronic infection to the foot. Been on antibiotics. Patient refused further care. Understood the risk including shortness of breath loss of function of her lower extremity worsened infection. Patient is leaving against medical advice. Lab Data Result diagrams: 05/13/22 15:11 05/13/22 15:11 Labs: Lab Results 05/13/22 05/13/22 05/13/22 Range/Units 15:11 15:11 15:11 WBC 10.2 (4.8-10.8) X10*3/uL RBC 4.15 L (4.20-5.50) X10*6/uL Hgb 9.2 L D (12.0-16.0) g/dl Hct 30.5 L D (37.0-47.0) % MCV 73.5 L (80.0-98.0) fL MCH 22.2 L (27.0-33.0) pg MCHC 30.2 L (31.0-35.0) g/dl RDW 17.6 H (11.0-16.0) % Plt Count 405 H D (160-400) X10*3/uL MPV 10.9 (9.4-12.3) fL Immature Gran % (Auto) 0.4 (0.0-0.4) % Neut % (Auto) 84.4 H (45-73) % Lymph % (Auto) 11.6 L (20-40) % [place] % (Auto) 2.6 (2-11) % Eos % (Auto) 0.5 (0-4) % Baso % (Auto) 0.5 (0-2) % Lymph # (Auto) 1.2 (1.2-4.9) X10*3/uL [place] # (Auto) 0.3 (0.1-1.2) X10*3/uL Eos # (Auto) 0.1 (0.0-0.4) X10*3/uL Baso # (Auto) 0.1 (0.0-0.2) X10*3/uL Abs Immat Gran (auto) 0.04 H (0.00-0.03) X10*3/uL Absolute Neuts (auto) 8.6 H (2.0-8.3) x10*3/uL Absolute Nucleated RBC 0.000 (0.0-0.012) X10*3/uL Nucleated RBC % (auto) 0.0 (0.0-0.2) /100WBC VBG pH (7.32-7.43) VBG pCO2 mmHg VBG pO2 mmHg VBG HCO3 (22-26) mmol/L VBG O2 Saturation % VBG Base Excess mmol/L Sodium 131 L (135-145) mmol/L Potassium 4.2 D (3.3-5.1) mmol/L Chloride 93 L (96-108) mmol/L Carbon Dioxide 28 (22-29) mmol/L Anion Gap 14 (12-20) BUN 10 (9-16) mg/dL Creatinine 0.89 (0.5-1.4) mg/dL Estim Creat Clear Calc 70.0 Estimated GFR > 60 Random Glucose 430 H* (60-115) mg/dL Lactic Acid 2.6 H* (0.5-2.0) mmol/L Calcium 9.4 D (8.4-10.2) mg/dL Total Bilirubin 0.4 (0.0-1.0) mg/dL AST 4 L (5-31) U/L ALT < 6 (0-31) U/L Alkaline Phosphatase 104 (39-117) U/L B-Natriuretic Peptide (<100) pg/mL Total Protein 6.7 (6.5-8.0) g/dL Albumin 3.6 (3.5-5.0) g/dL Influenza Type A (PCR) (Negative) Influenza Type B (PCR) (Negative) RSV RNA Qual (PCR) (Negative) SARS-CoV-2 RNA (RT-PCR) (Negative) 05/13/22 05/13/22 05/13/22 Range/Units 15:11 15:17 15:31 WBC (4.8-10.8) X10*3/uL RBC (4.20-5.50) X10*6/uL Hgb (12.0-16.0) g/dl Hct (37.0-47.0) % MCV (80.0-98.0) fL MCH (27.0-33.0) pg MCHC (31.0-35.0) g/dl RDW (11.0-16.0) % Plt Count (160-400) X10*3/uL MPV (9.4-12.3) fL Immature Gran % (Auto) (0.0-0.4) % Neut % (Auto) (45-73) % Lymph % (Auto) (20-40) % [place] % (Auto) (2-11) % Eos % (Auto) (0-4) % Baso % (Auto) (0-2) % Lymph # (Auto) (1.2-4.9) X10*3/uL [place] # (Auto) (0.1-1.2) X10*3/uL Eos # (Auto) (0.0-0.4) X10*3/uL Baso # (Auto) (0.0-0.2) X10*3/uL Abs Immat Gran (auto) (0.00-0.03) X10*3/uL Absolute Neuts (auto) (2.0-8.3) x10*3/uL Absolute Nucleated RBC (0.0-0.012) X10*3/uL Nucleated RBC % (auto) (0.0-0.2) /100WBC VBG pH 7.49 H (7.32-7.43) VBG pCO2 36 mmHg VBG pO2 47 mmHg VBG HCO3 28 H (22-26) mmol/L VBG O2 Saturation 74.0 % VBG Base Excess 5.4 mmol/L Sodium (135-145) mmol/L Potassium (3.3-5.1) mmol/L Chloride (96-108) mmol/L Carbon Dioxide (22-29) mmol/L Anion Gap (12-20) BUN (9-16) mg/dL Creatinine (0.5-1.4) mg/dL Estim Creat Clear Calc Estimated GFR Random Glucose (60-115) mg/dL Lactic Acid (0.5-2.0) mmol/L Calcium (8.4-10.2) mg/dL Total Bilirubin (0.0-1.0) mg/dL AST (5-31) U/L ALT (0-31) U/L Alkaline Phosphatase (39-117) U/L B-Natriuretic Peptide 1558 H (<100) pg/mL Total Protein (6.5-8.0) g/dL Albumin (3.5-5.0) g/dL Influenza Type A (PCR) NEGATIVE (Negative) Influenza Type B (PCR) NEGATIVE (Negative) RSV RNA Qual (PCR) NEGATIVE (Negative) SARS-CoV-2 RNA (RT-PCR) NEGATIVE (Negative) Discharge Plan Discharge Clinical Impression: Dyspnea, COPD (chronic obstructive pulmonary disease), Cellulitis, Left foot infection Patient Disposition: Left Against Medical Advice Instructions: Cellulitis (ED), Chronic Lung Disease and Infection Prevention (ED) Prescriptions: No Action aspirin 81 mg tablet,delayed release (DR/EC) 1 tab PO DAILY glipizide-metformin 5-500 mg tablet 2 tab PO BID Advair HFA 115-21 mcg/actuation HFA aerosol inhaler 2 puff inhalation BID lisinopril-hydrochlorothiazide 20-12.5 mg tablet 1 tab PO DAILY Incruse Ellipta 62.5 mcg/actuation blister with device 1 puff PO DAILY montelukast 10 mg tablet 1 tab PO BEDTIME albuterol sulfate 2.5 mg /3 mL (0.083 %) solution for nebulization 2.5 mg inhalation QID PRN (Reason: bronchospasm) Qty: 90 0RF insulin glargine [Lantus Solostar U-100 Insulin] 100 unit/mL (3 mL) insulin pen 20 unit subcut BEDTIME gabapentin 300 mg capsule 2 cap PO BEDTIME betamethasone dipropionate 0.05 % ointment 1 appl TOPICAL BID Rx Instructions: apply to affected area furosemide 40 mg Tablet 40 mg PO DAILY atorvastatin 80 mg Tablet 80 mg PO BEDTIME clopidogrel 75 mg Tablet 75 mg PO DAILY metoprolol succinate 25 mg Tablet Extended Release 24 Hr 25 mg PO DAILY doxycycline hyclate 100 mg tablet 100 mg PO BID Qty: 20 0RF cefuroxime axetil 500 mg tablet 500 mg PO Q12H Qty: 20 0RF albuterol sulfate 90 mcg/actuation HFA aerosol inhaler 1 inh inhalation QID PRN (Reason: shortness of breath or wheezing) Qty: 8.5 0RF Referrals: Physician,Unknown J [Primary Care Provider] - (Follow-up with your doctor within the next 1-2 days. if you change of mind please come back to the emergency department.) Stand Alone Forms: Against Medical Advice
[2022-05-13 17:17] LABS: Reflex Lactate? Lactic Acid Added
--- NOTE | 2022-05-13 17:38 | PC.NURSE ---
Patient is leaving against medical advise . Provider has made patient aware of possible complication that could happen . Patient to return if symptoms worsen . no questions at this time .
== END 2022-05-13 17:41 | disposition left against medical advice (07) ==
PROVIDERS: Student in an Organized Health Care Education/Training Program; Emergency Provider Emergency Medicine Emergency Medical Services
DX: J44.9 Chronic obstructive pulmonary disease, unspecified (principal); R06.02 Shortness of breath; L03.116 Cellulitis of left lower limb; L03.115 Cellulitis of right lower limb; Z20.822 Contact with and (suspected) exposure to COVID-19; Z79.899 Other long term (current) drug therapy
CPT/HCPCS: 0241U; 36415; 71045; 80053; 82803; 83605; 83880; 85025; 87040; 94640; 99284

== ENCOUNTER 2022-06-13 22:26 | Inpatient (IN) | payer MEDICAID, SELFPAY ==
--- NOTE | ~2022-06-13 | XR_ITS ---
EXAMINATION: XR ELBOW, RIGHT CLINICAL INFORMATION: Pain COMPARISON: None TECHNIQUE: AP, lateral, and oblique views of the right elbow. FINDINGS: No fracture or joint effusion. Alignment is anatomic. Small humeral-ulnar marginal osteophytes. XR/XR elbow RT min 3V IMPRESSION: * No acute findings.
--- NOTE | ~2022-06-13 | XR_ITS ---
EXAMINATION: XR FOOT, RIGHT CLINICAL INFORMATION: Cellulitis. Evaluate for osteomyelitis. COMPARISON: 04/30/2022 TECHNIQUE: AP, lateral, and oblique views of the right foot. FINDINGS: No periosteal reaction, cortical destruction or intramedullary lucency to suggest osteomyelitis. Mild narrowing of the first metatarsophalangeal joint. Large plantar calcaneal enthesophyte. Soft tissue ulcer along the lateral midfoot. XR/XR foot RT min 3V IMPRESSION: * No radiographic evidence of osteomyelitis. * Soft tissue ulcer along the lateral midfoot.
--- NOTE | ~2022-06-13 | CT_ITS ---
EXAMINATION: CT FOOT WITH CONTRAST, RIGHT CLINICAL INFORMATION: Cellulitis. Rule out osteomyelitis. COMPARISON: 06/13/2022 TECHNIQUE: Multidetector CT imaging of the right foot was performed after the administration of 85 mL Omnipaque 350 intravenous contrast. Coronal and sagittal reformats created on an independent workstation were reviewed. This CT examination was performed using dose optimization techniques as appropriate, variously including the following: *Automated exposure control *Adjustment of mA and/or kV according to patient size (this includes techniques or standardized protocols for targeted exams where dose is matched to indication/reason for exam; i.e. extremities or head) *Use of iterative reconstruction technique DLP: 158 mGy-cm FINDINGS: Again seen is an ulcer of the soft tissues along the inferolateral plantar surface, with induration of the underlying fat. No drainable collection. No periosteal reaction, cortical destruction or intramedullary lucency to suggest osteomyelitis. Degenerative changes of the first metatarsophalangeal joint and second tarsometatarsal joint. Moderate plantar calcaneal enthesophyte. CT/CT foot RT w IV con IMPRESSION: * No CT evidence of osteomyelitis. * Ulcer along the inferolateral plantar surface with induration of the underlying fat. No drainable collection.
--- NOTE | ~2022-06-13 | XR_ITS ---
EXAMINATION: XR CHEST CLINICAL INFORMATION: Shortness of breath COMPARISON: 05/13/2022 TECHNIQUE: Frontal view of the chest was obtained. FINDINGS: Trace right pleural effusion. Right middle lobe and lower lobe streaky opacities. Left lung clear. No pneumothorax. Normal heart size and pulmonary vascularity. XR/XR chest 1V IMPRESSION: * Trace right pleural effusion. * Right middle lobe and lower lobe streaky opacities could represent atelectasis or infiltrate.
--- NOTE | ~2022-06-13 | CT_ITS ---
EXAMINATION: CT ABDOMEN AND PELVIS WITHOUT CONTRAST CLINICAL INFORMATION: Right-sided abdominal pain COMPARISON: CT abdomen and pelvis 02/13/2022 TECHNIQUE: Multidetector volumetric imaging was performed from the superior aspect of the liver through the pubic symphysis. Sagittal and coronal reformatted images were obtained on the technologist's workstation. This CT examination was performed using dose optimization techniques as appropriate, variously including the following: *Automated exposure control *Adjustment of mA and/or kV according to patient size (this includes techniques or standardized protocols for targeted exams where dose is matched to indication/reason for exam; i.e. extremities or head) *Use of iterative reconstruction technique DLP: 691 mGy-cm FINDINGS: LUNG BASES: Moderate to large bilateral pleural effusions layering dependently. LIVER, GALLBLADDER, AND BILIARY TREE: No focal liver lesion. A small hypodense lesion in the posterior right lobe of liver on the postcontrast CT abdomen pelvis 02/13/2022 not apparent on this noncontrast exam. No intrahepatic bile duct dilatation. Right lobe of liver measures 20 cm superior inferior. The gallbladder is unremarkable with no evidence of radiopaque gallstones, gallbladder wall thickening, or obvious pericholecystic inflammatory changes. PANCREAS: Unremarkable. SPLEEN: Spleen mildly enlarged measuring 16.5 cm superior-inferior. ADRENAL GLANDS: Stable 1.5 cm left adrenal nodule. Normal right adrenal gland. KIDNEYS AND URETERS: No change of the small multiple bilateral calculi in the kidneys. No hydronephrosis. No hydroureter. No ureteral stone. BLADDER: Unremarkable. GASTROINTESTINAL TRACT: The small and large bowel are unremarkable. The appendix is unremarkable. ABDOMINAL WALL: No significant hernia is appreciated. Moderate generalized anasarca. MESENTERY: Small volume of abdominal ascites. There is a small volume of free fluid in the lower pelvis. LYMPH NODES: Normal. VASCULAR: Scattered vascular calcifications of aorta and iliac arteries. There is no aneurysm. PELVIC VISCERA: Uterus is anteverted. No adnexal abnormality. OSSEOUS STRUCTURES: Unremarkable. CT/CT abdomen pelvis wo IV con IMPRESSION: 1. No acute abnormality CT scan abdomen pelvis. 2. Bilateral pleural effusions. 3. Stable left adrenal nodule. 4. Small bilateral nonobstructive renal calculi. No hydronephrosis. 5. Small volume of abdominal ascites. Generalized anasarca. 6. Moderate hepatosplenomegaly. Fleischner guidelines were followed.
[2022-06-13 22:40] VITALS: BP 127/59; BP 145/85; PULSE 107; RESP 22; TEMP 36.9; O2SAT 100; BMI 32.4
[2022-06-13 22:49] LABS: Glucose, Whole Blood 240 mg/dL (60-115)
--- NOTE | 2022-06-13 22:49 | ECG_ITS ---
Test Reason : ABD PAIN Blood Pressure : / mmHG Vent. Rate : 104 BPM Atrial Rate : 104 BPM P-R Int : 140 ms QRS Dur : 086 ms QT Int : 358 ms P-R-T Axes : 072 062 115 degrees QTc Int : 470 ms Sinus tachycardia Low voltage QRS Cannot rule out Anterior infarct , age undetermined Abnormal ECG When compared with ECG of 30-APR-2022 23:43, Nonspecific T wave abnormality has replaced inverted T waves in Lateral leads Referred By: Maty Coffey Electronically Signed By:WENDY JIMENES
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
[2022-06-13] MEDS: Albuterol Sulfate 2.5 MG, Albuterol Sulfate (0.083%) 2.5 MG 5 MG INHALE (23:15)
[2022-06-13 23:18] VITALS: PULSE 103; RESP 16; O2SAT 98
[2022-06-13] MEDS: Albuterol/Iprat 2.5/0.5MG 3 ML AMPUL.NEB INHALE (23:19)
--- OUTSIDE RECORDS SUMMARY | 2022-06-13 23:25 | XMS_ITS | Continuity of Care Document ---
:1970 Author Organization [facility] Address [address] [place] [id number]- Care Team Providers Name Role Phone Genevieve MORA, Danica Primary Care Physician [place] [facility] [place] - 05/12/[address] [id number] Attending Physician: Danica Vallejo NP Admitting Physician: [...] 1 each, 2 Refills,Maintenance, 03/14/22 9:19:00 EDT, [facility]/pharmacy #[id number], 2 puffs Inhalation 2 [...] tablet, 5 Refills, Maintenance, 02/11/22 17:36:00 EDT, [facility]/pharmacy #[id number], 160.02, cm, 02/07/22 10:35:00 EDT, Height Start Date: 02/11/22 Stop Date: 08/10/22 Status: Orderedatorvastatin 80 mg oral tablet 1 tablet = 80 mg, By Mouth, Daily at bedtime, # 30 tablet, 0 Refills, Maintenance, 03/28/22 14:31:00EDT, Tablet, [facility]/pharmacy #[id number], Partial fill upon patient [...] 02/11/22 17:35:00 EDT, Route to Pharmacy Electronically, [facility]/pharmacy #[id number], 160.02, cm, 02/07/22 10:35:00 EDT, Height Start Date: 02/11/22 Status: Orderedglipizide-metformin 5 mg-500 mg oral tablet 2 tablet, By Mouth, 2 times a day, DIABETES, # 120 tablet, 2 Refills, Maintenance, 02/11/22 17:35:00EDT, Tablet, [facility]/pharmacy #[id number], 2 tablet By Mouth [...] 2 Refills, Maintenance, 02/11/22 17:35:00 EDT, Powder, [facility]/pharmacy #[id number], 160.02, cm, 02/07/22 10:35:00 EDT, Height Start Date: 02/11/22 Status: OrderedLantus Solostar Pen 100 units/mL subcutaneous solution = 20 units, Subcutaneous Injection, Daily at bedtime, Dose increase, # 15 mL, 1 Refills, Maintenance, 02/11/22 17:36:00 EDT, Solution, [facility]/pharmacy #[id number], Partial fill upon patient request if the prescription is for a schedule II opioid drug., 160.02,... Start Date: 02/11/22 Status: OrderedLasix 40 mg oral tablet 40 mg, 1, tablet, By Mouth, Daily, # 30 tablet, Refills 0, Tot. Refills 0, Maintenance, 03/28/22 14:06:00 EDT, Route to Pharmacy Electronically, [facility]/pharmacy #[id number], Partial fill upon patient [...] 03/28/22 14:06:00 EDT, Route to Pharmacy Electronically, [facility]/pharmacy #[id number], Partial fill upon patient requestif the prescription is for a schedule II opioid d... Start Date: 03/28/22 Status: Orderedmontelukast 10 mg oral tablet 1, tablet, By Mouth, Daily in PM, Disregard previous script, # 30 tablet, Refills 1, Tot. Refills 1,01/31/22 10:36:00 EDT, Route to Pharmacy Electronically, [facility]/pharmacy #[id number], 160.02, cm, 12/28/21 11:08:00 [...] Fine III See Instructions, # 100 each, Refills 1, Tot. Refills 1, Maintenance, Use daily with Lantus solostarpen Dx: Type 2 DM ICD 10: E11.9, 05/06/22 12:38:00 EST, Supply, 160.02, cm, 04/01/22 11:01:00 EDT, Height, 74, kg, 03/26/22 13:15:00 EDT, Dry Weight Start Date: 05/06/22 Status: OrderedPlavix 75 mg oral tablet 75 mg, 1, tablet, By Mouth, Daily, # 30 tablet, Refills 0, Tot. Refills 0, Maintenance, 03/28/22 14:05:00 EDT, Route to Pharmacy Electronically, [facility]/pharmacy #[id number], Partial fill upon patient request ifthe prescription is for a schedule II opioid drug... Start Date: 03/28/22 Status: OrderedToprol XL 25 mg oral tablet, extended release 25 mg, 1, tablet, By Mouth, Daily, # 30 tablet, Refills 0, Tot. Refills 0, Maintenance, 03/28/22 14:07:00 EDT, Route to Pharmacy Electronically, [facility]/pharmacy #[id number], Partial fill upon patient [...] Care Team PersonnelName: Janel Hart RN Position: [facility] RN Member Role: Primary Care Nurse Name: Danica Vallejo NP Position: [facility] PCO Associate Professional Member Role: PCP Address: Address: [address] [place] [id number]- Care Team Related PersonsName: ASHLEY MOELLER Address: home [address] [place] [id number]
--- OUTSIDE RECORDS SUMMARY | 2022-06-13 23:26 | XMS_ITS | Continuity of Care Document ---
:1970 Author Organization [facility] Address [address] [place] [address]- Care Team Providers Name Role Phone Genevieve MORA, Danica Primary Care Physician [place] [facility] [place]/22 [facility] [address] [place], [place] [address] Attending Physician: Danica Vallejo NP [...] Date: 03/14/22 Status: Orderedalbuterol 0.083% inhalation solution 3 mL = 2.5 mg, Inhalation, Every 6 hours, PRN Wheezing/Shortness of Breath, No further refills untilseen in office, # 25 each, 0 Refills, Maintenance, 05/16/22 8:34:00 EST, Solution, [id number], Partial fill upon patient request if the prescr... Start Date: 05/16/22 Status: OrderedamLODIPine 10 mg oral tablet 10 mg, 1, tablet, By Mouth, Daily, # 30 tablet, Refills 2, Tot. Refills 2, Maintenance, 02/11/22 17:35:00 EDT, Route to Pharmacy Electronically, [facility]/pharmacy #[id number], Partial fill upon patient request ifthe prescription is for a schedule II opioid drug... Start Date: 02/11/22 Status: OrderedAspirin Enteric Coated 81 mg oral delayed release tablet 1 tablet = 81 mg, By Mouth, Daily, # 30 tablet, 5 Refills, Maintenance, 02/11/22 17:36:00 EDT, [id number], 160.02, cm, 02/07/22 10:35:00 EDT, Height Start Date: 02/11/22 Stop Date: 08/10/22 Status: Orderedatorvastatin 80 mg oral tablet 1 tablet = 80 mg, By Mouth, Daily at bedtime, # 30 tablet, 0 Refills, Maintenance, 03/28/22 14:31:00EDT, Tablet, [facility]/pharmacy #[id number], Partial fill upon patient request if the prescription is for a schedule II opioid drug., 63, cm, 03/28/22 11:00:00 ED... Start Date: 03/28/22 Status: Orderedfurosemide 40 mg oral tablet 40 mg, 1, tablet, By Mouth, Daily, # 30 tablet, Refills 0, Maintenance, 05/14/22 8:24:00 EST, Partial fill upon patient request if the prescription is for a schedule II opioid drug. Start Date: 05/14/22 Status: Orderedgabapentin 300 mg oral capsule 2, capsule, By Mouth, Daily at bedtime, # 60 capsule, Refills 2, Tot. Refills 2, 02/11/22 17:35:00 EDT, Route to Pharmacy Electronically, [facility]/pharmacy #[id number], 160.02, cm, 02/07/22 10:35:00 EDT, Height Start Date: 02/11/22 Status: Orderedglipizide-metformin 5 mg-500 mg oral tablet 2 tablet, By Mouth, 2 times a day, DIABETES, # 120 tablet, 2 Refills, Maintenance, 02/11/22 17:35:00EDT, Tablet, [facility]/pharmacy #207, 2 tablet By Mouth 2 times a day,x30 days,Instr:DIABETES, 160.02, cm, 02/07/22 10:35:00 EDT, Height Start Date: 02/11/22 Stop Date: 05/12/22 Status: Orderedhydrochlorothiazide-lisinopril 12.5 mg-20 mg oral tablet 1 tablet, By Mouth, Daily, # 30 tablet, 0 Refills, Maintenance, 05/14/22 7:31:00 EST, Tablet, Partial fill upon patient request if the prescription is for a schedule II opioid drug. Start Date: 05/14/22 Status: OrderedIncruse Ellipta 62.5 mcg/inh inhalation powder 1 puffs, Inhalation, Daily, APART*., # 30 each, 2 Refills, Maintenance, 05/30/22 10:12:00 EST, [id number], 160.[facility], cm, 04/01/22 11:01:00 EDT, Height, 74, kg, 03/26/22 13:15:00 EDT, Dry Weight Start Date: 05/30/22 Stop Date: 05/31/22 Status: OrderedLantus Solostar Pen 100 units/mL subcutaneous solution = 20 units, Subcutaneous Injection, Daily at bedtime, Dose increase, # 15 mL, 1 Refills, Maintenance, 02/11/22 17:36:00 EDT, Solution, [facility]/pharmacy #[id number], Partial fill upon patient request if the prescription is for a schedule II opioid drug., 160.02,... Start Date: 02/11/22 Status: Orderedmontelukast 10 mg oral tablet 1, tablet, By Mouth, Daily in PM, Disregard previous script, # 30 tablet, Refills 1, Tot. Refills 1,01/31/22 10:36:00 EDT, Route to Pharmacy Electronically, [facility]/pharmacy #[id number], 160.02, cm, 12/28/21 11:08:00 EDT, Height Start Date: 01/31/22 Status: OrderedPlavix 75 mg oral tablet 75 mg, 1, tablet, By Mouth, Daily, # 30 tablet, Refills 0, Tot. Refills 0, Maintenance, 03/28/22 14:05:00 EDT, Route to Pharmacy Electronically, [facility]/pharmacy #[id number], Partial fill upon patient request ifthe prescription is for a schedule II opioid drug... Start Date: 03/28/22 Status: Ordered Problem List Condition Confirmation Course [...] Care Team PersonnelName: Janel Hart RN Position: [facility] RN Member Role: Primary Care Nurse Name: Danica Vallejo NP Position: [facility] PCO Associate Professional Member Role: PCP Address: Address: [address] [place] [id number]- Care Team Related PersonsName: ASHLEY MOELLER Address: [address] [place] [address]
--- OUTSIDE RECORDS SUMMARY | 2022-06-13 23:26 | XMS_ITS | Continuity of Care Document ---
:1970 Author Organization [facility] Address [address] [place] [address]- Care Team Providers Name Role Phone Genevieve MORA, Danica Primary Care Physician [place] [facility] [id number] Date(s): 03/28/22 - 05/27/22 [facility] [address] [place] [address]- Attending Physician: Rakesh Steen MD Admitting Physician: Rakesh Steen MD Allergies, Adverse Reactions, Alerts Substance Reaction [...] 1 each, 2 Refills,Maintenance, 03/14/22 9:19:00 EDT, [facility]/pharmacy #[id number], 2 puffs Inhalation 2 times [...] 02/11/22 17:35:00 EDT, Route to Pharmacy Electronically, [facility]/pharmacy #[id number], Partial fill upon patient request [...] tablet, 0 Refills, Maintenance, 03/28/22 14:31:00EDT, Tablet, [facility]/pharmacy #207, Partial fill upon patient request [...] 17:35:00 EDT, Route to Pharmacy [facility], [facility], 160.02, cm, 02/07/22 10:35:00 EDT, Height Start Date: 02/11/22 Status: Orderedglipizide-metformin 5 mg-500 mg oral tablet 2 tablet, By Mouth, 2 times a day, DIABETES, # 120 tablet, 2 Refills, Maintenance, 02/11/22 17:35:00EDT, Tablet, [facility]/pharmacy #207, 2 tablet By Mouth 2 [...] 2 Refills, Maintenance, 02/11/22 17:35:00 EDT, Powder, [facility]/pharmacy #[id number], 160.02, cm, 02/07/22 10:35:00 EDT, [...] 1,01/31/22 10:36:00 EDT, Route to Pharmacy Electronically, [facility]/pharmacy #[id number], 160.02, cm, 12/28/21 11:08:00 EDT, Height Start Date: 01/31/22 Status: OrderedPlavix 75 mg oral tablet 75 mg, 1, tablet, By Mouth, Daily, # 30 tablet, Refills 0, Tot. Refills 0, Maintenance, 03/28/22 14:05:00 EDT, Route to [facility], [id number], [...] Care Team PersonnelName: Janel Hart RN Position: [facility] RN Member Role: Primary Care Nurse Name: Danica Vallejo NP Position: [facility] PCO Associate Professional Member Role: PCP Address: Address: [address] [place] [address]- Care Team Related PersonsName: ASHLEY MOELLER Address: [address] [place] [address]
--- OUTSIDE RECORDS SUMMARY | 2022-06-13 23:26 | XMS_ITS | Continuity of Care Document ---
:1970 Author Organization [facility] Address [address] [place] [address]- Care Team Providers Name Role Phone Genevieve MORA, Danica Primary Care Physician [place] [facility] [place] 04/12/22 - 05/12/[address] [address] Attending Physician: AdmtrMitul Admitting Physician: AdmtrMitul Referring Physician: Admtr, [id number] [...] 1 each, 2 Refills,Maintenance, 03/14/22 9:19:00 EDT, [facility]/pharmacy #[id number], 2 puffs Inhalation 2 times [...] to Pharmacy Electronically, [facility]/pharmacy #[id number], Partial fill upon patient request ifthe prescription is for a schedule II opioid drug... Start Date: 02/11/22 Status: OrderedAspirin Enteric Coated 81 mg oral delayed release tablet 1 tablet = 81 mg, By Mouth, Daily, # 30 tablet, 5 Refills, Maintenance, 02/11/22 17:36:00 EDT, [facility]/pharmacy #[id number], 160.02, cm, 02/07/22 10:35:00 EDT, Height Start Date: 02/11/22 Stop Date: 08/10/22 Status: Orderedatorvastatin 80 mg oral tablet 1 tablet = 80 mg, By Mouth, Daily at bedtime, # 30 tablet, 0 Refills, Maintenance, 03/28/22 14:31:00EDT, Tablet, [facility]/pharmacy #[id number], Partial fill upon patient [...] to Pharmacy Electronically, [facility]/pharmacy #[id number], 160.02, cm, 02/07/22 10:35:00 EDT, Height Start Date: 02/11/22 Status: Orderedglipizide-metformin 5 mg-500 mg oral tablet 2 tablet, By Mouth, 2 times a day, DIABETES, # 120 tablet, 2 Refills, Maintenance, 02/11/22 17:35:00EDT, Tablet, [facility]/pharmacy #[id number], 2 tablet By Mouth [...] 2 Refills, Maintenance, 02/11/22 17:35:00 EDT, Powder, [facility]/pharmacy #[id number], 160.02, cm, 02/07/22 10:35:00 EDT, Height Start Date: 02/11/22 Status: OrderedLantus Solostar Pen 100 units/mL subcutaneous solution = 20 units, Subcutaneous Injection, Daily at bedtime, Dose increase, # 15 mL, 1 Refills, Maintenance, 02/11/22 17:36:00 EDT, Solution, [facility]/pharmacy #207, Partial fill upon patient request if the prescription is for a schedule II opioid drug., 160.02,... Start Date: 02/11/22 Status: OrderedLasix 40 mg oral tablet 40 mg, 1, tablet, By Mouth, Daily, # 30 tablet, Refills 0, Tot. Refills 0, Maintenance, 03/28/22 14:06:00 EDT, Route to Pharmacy Electronically, [facility]/pharmacy #[id number], Partial fill upon patient [...] 03/28/22 14:06:00 EDT, Route to Pharmacy Electronically, [facility]/pharmacy #[id number], Partial fill upon patient requestif the prescription is for a schedule II opioid d... Start Date: 03/28/22 Status: Orderedmontelukast 10 mg oral tablet 1, tablet, By Mouth, Daily in PM, Disregard previous script, # 30 tablet, Refills 1, Tot. Refills 1,01/31/22 10:36:00 EDT, Route to Pharmacy Electronically, [facility]/pharmacy #[id number], 160.02, cm, 12/28/21 11:08:00 EDT, Height Start Date: 01/31/22 Status: OrderedNebulizer mask and tubing Nebulizer mask and tubing, See Instructions, # 1 each, Refills 0, Tot. Refills 0, Maintenance, Dx: Asthma J44.9. To be used with albuterol, 12/17/19 10:33:00 EDT, Compound Start Date: 12/17/19 Status: OrderedPen Rosalia, 31 G x 5 mm BD Ultra [...] 03/28/22 14:05:00 EDT, Route to Pharmacy Electronically, [facility]/pharmacy #[id number], Partial fill upon patient request ifthe prescription is for a schedule II opioid drug... Start Date: 03/28/22 Status: OrderedToprol XL 25 mg oral tablet, extended release 25 mg, 1, tablet, By Mouth, Daily, # 30 tablet, Refills 0, Tot. Refills 0, Maintenance, 03/28/22 14:07:00 EDT, Route to Pharmacy Electronically, [facility]/pharmacy #[id number], Partial fill upon patient [...] Care Team PersonnelName: Janel Hart RN Position: [facility] RN Member Role: Primary Care Nurse Name: Danica Vallejo NP Position: [facility] PCO Associate Professional Member Role: PCP Address: Address: [address] [place] [address]- Care Team Related PersonsName: ASHLEY MOELLER Address: [address] [place] [address]
--- OUTSIDE RECORDS SUMMARY | 2022-06-13 23:27 | XMS_ITS | Continuity of Care Document ---
:[address] [facility] Address [address] [place] [address]- Care Team Providers Name Role Phone Genevieve MORA, Danica Primary Care Physician En[place] [facility] [place] Date(s): 05/04/22 - 06/12/22 [facility] [address] [place], [place] [address] Attending Physician: Kinza Turner DO Allergies, Adverse Reactions, Alerts Substance Reaction Severity [...] to Pharmacy Electronically, [facility]/pharmacy #[id number], Partial fill upon patient request ifthe prescription is for a schedule II opioid drug... Start Date: 02/11/22 Status: OrderedAspirin Enteric Coated 81 mg oral delayed release tablet 1 tablet = 81 mg, By Mouth, Daily, # 30 tablet, 5 Refills, Maintenance, 02/11/22 17:36:00 EDT, [facility], 160.02, cm, 02/07/22 10:35:00 EDT, Height Start Date: 02/11/22 Stop Date: 08/10/22 Status: Orderedatorvastatin 80 mg oral tablet 1 tablet = 80 mg, By Mouth, Daily at bedtime, # 30 tablet, 0 Refills, Maintenance, 03/28/22 14:31:00EDT, Tablet, [facility]/pharmacy #207, Partial fill upon patient request [...] Maintenance, 02/11/22 17:35:00EDT, Tablet, [facility]/pharmacy #[id number], 2 tablet By Mouth 2 [...] Refills, Maintenance, 05/30/22 10:12:00 EST, [facility], 160.02, cm, 04/01/22 11:01:00 EDT, Height, 74, [...] Care Team PersonnelName: Janel Hart RN Position: [facility] RN Member Role: Primary Care Nurse Name: Danica Vallejo NP Position: [facility] PCO Associate Professional Member Role: PCP Address: Address: [address] [place] [address]- Care Team Related PersonsName: ASHLEY MOELLER Address: [address] [place] [address]
--- OUTSIDE RECORDS SUMMARY | 2022-06-13 23:27 | XMS_ITS | Continuity of Care Document ---
:1970 Author Organization [facility] Address [address] [place] [address]- Care Team Providers Name Role Phone Genevieve MORA, Danica Primary Care Physician Encounter [facility] [place] Date(s): 04/27/22 - 05/27/22 [facility] [address] [place] [address]- Attending Physician: Mitul Patel Admitting Physician: AdmMitul miller Referring Physician: AdmtrMitul Allergies, Adverse Reactions, Alerts Substance Reaction Severity [...] 1 each, 2 Refills,Maintenance, 03/14/22 9:19:00 EDT, [facility]/pharmacy #[id number], 2 puffs Inhalation 2 [...] 02/11/22 17:35:00 EDT, Route to Pharmacy Electronically, [facility]/pharmacy #[id number], Partial fill upon [...] tablet, 0 Refills, Maintenance, 03/28/22 14:31:00EDT, Tablet, [facility], Partial fill upon patient request if [...] 17:35:00 EDT, Route to [facility] Electronically, [id number], 160.02, cm, 02/07/22 10:35:00 EDT, Height Start Date: 02/11/22 Status: Orderedglipizide-metformin 5 mg-500 mg oral tablet 2 tablet, By Mouth, 2 times a day, DIABETES, # 120 tablet, 2 Refills, Maintenance, 02/11/22 17:35:00EDT, Tablet, [facility], 2 tablet By Mouth [...] 2 Refills, Maintenance, 02/11/22 17:35:00 EDT, Powder, [facility]/pharmacy #[id number], 160.02, cm, 02/07/22 10:35:00 [...] 1,01/31/22 10:36:00 EDT, Route to Pharmacy Electronically, [facility]/pharmacy #[id number], 160.02, cm, 12/28/21 [...] Care Team PersonnelName: Janel Hart RN Position: [facility] RN Member Role: Primary Care Nurse Name: Danica Vallejo NP Position: [facility] PCO Associate Professional Member Role: PCP Address: Address: [address] [place] [address]- Care Team Related PersonsName: ASHLEY MOELLER Address: [address] [place] [address]
--- OUTSIDE RECORDS SUMMARY | 2022-06-13 23:27 | XMS_ITS | Continuity of Care Document ---
:1970 Author Organization [facility] Address [address] [place] [address]- Care Team Providers Name Role Phone Genevieve MORA, Danica Primary Care Physician [place] [facility] [place](s): 05/13/22 - 06/12/22 [facility] [address] [place], [place] [address] Attending Physician: AdmMitul miller Admitting Physician: Admtr, Ar8 Referring Physician: Admtr, [...] 17:35:00 EDT, Route to Pharmacy Electronically, [facility]/pharmacy #[id number], Partial fill upon patient request ifthe prescription is for a schedule II opioid drug... Start Date: 02/11/22 Status: OrderedAspirin Enteric Coated 81 mg oral delayed release tablet 1 tablet = 81 mg, By Mouth, Daily, # 30 tablet, 5 Refills, Maintenance, 02/11/22 17:36:00 EDT, [id number], 160.02, cm, 02/07/22 10:35:00 EDT, Height Start Date: 02/11/22 Stop Date: 08/10/22 Status: Orderedatorvastatin 80 mg oral tablet 1 tablet = 80 mg, By Mouth, Daily at bedtime, # 30 tablet, 0 Refills, Maintenance, 03/28/22 14:31:00EDT, Tablet, [facility]/pharmacy #[id number], Partial fill upon patient request [...] 17:35:00 EDT, Route to Pharmacy Electronically, [facility]/pharmacy #[id number], 160.02, cm, 02/07/22 10:35:00 EDT, Height Start Date: 02/11/22 Status: Orderedglipizide-metformin 5 mg-500 mg oral tablet 2 tablet, By Mouth, 2 times a day, DIABETES, # 120 tablet, 2 Refills, Maintenance, 02/11/22 17:35:00EDT, Tablet, [id number], 2 tablet By Mouth [...] each, 2 Refills, Maintenance, 05/30/22 10:12:00 EST, [facility], 160.02, cm, 04/01/22 11:01:00 EDT, Height, 74, kg, 03/26/22 13:15:00 EDT, Dry Weight Start Date: 05/30/22 Stop Date: 05/31/22 Status: OrderedLantus Solostar Pen 100 units/mL subcutaneous solution = 20 units, Subcutaneous Injection, Daily at bedtime, Dose increase, # 15 mL, 1 Refills, Maintenance, 02/11/22 17:36:00 EDT, Solution, [facility]/pharmacy #[id number], Partial fill upon patient request [...] 14:05:00 EDT, Route to Pharmacy Electronically, [facility]/pharmacy #[id number], Partial fill upon patient request [...] 5 a day; entered on: 12/28/16 Sex Note Event Display: Non Lab Results Authored Date: Event Display: Non Lab Results Authored Date: Patient Care team information Care Team PersonnelName: Janel Hart RN Position: [facility] RN Member Role: Primary Care Nurse Name: Danica Vallejo NP Position: [facility] PCO Associate Professional Member Role: PCP Address: Address: [address] [place] [address]- Care Team Related PersonsName: ASHLEY MOELLER Address: [address] [place] [address]
--- OUTSIDE RECORDS SUMMARY | 2022-06-13 23:27 | XMS_ITS | Continuity of Care Document ---
:1970 Author Organization [facility] Address [address] [place] [id number]- Care Team Providers Name Role Phone Genevieve MORA, Danica Primary Care Physician Encounter [facility] Date(s): 05/14/22 - 05/14/[address] [address]- Discharge Disposition: A-D/C AMA Attending Physician: Inocente Dallas MD, Garcia Guy Admitting Physician: Roque CISNEROS, Ender Referring Physician: Not on Staff, Referring MD Allergies, Adverse Reactions, Alerts Substance Reaction Severity Status amoxicillin Active penicillin Hives Active Immunizations Given and Recorded Vaccine Date Status Refusal Reason influenza virus vaccine, inactivated 03/16/21 Recorded SARS-CoV-2 (COVID-19) mRNA-1273 vaccine 11/08/20 Recorded SARS-CoV-2 (COVID-19) mRNA-1273 vaccine 10/11/20 Recorded Medications Acetaminophen Tablet 650 mg, Tablet, By Mouth, Every 4 hours, PRN for Pain , Mild, Temperature Greater than 100.5, Routine, 05/14/22 4:23:00 EST Start Date: 05/14/22 Stop Date: 05/14/22 Status: DiscontinuedAdvair HFA 115 mcg / 21 mcg 2 puffs, Inhalation, 2 times a day, Disregard previous script sent to pharmacy, # 1 each, 2 Refills,Maintenance, 03/14/22 9:19:00 EDT, [facility]/pharmacy #[id number], 2 puffs Inhalation 2 times a day,Instr:Disregard previous script sent to pharmacy, 160.02, cm,... Start Date: 03/14/22 Status: OrderedamLODIPine 10 mg oral tablet 10 mg, 1, tablet, By Mouth, Daily, # 30 tablet, Refills 2, Tot. Refills 2, Maintenance, 02/11/22 17:35:00 EDT, Route to Pharmacy Electronically, [facility]/pharmacy #[id number], Partial fill upon patient [...] tablet, 0 Refills, Maintenance, 03/28/22 14:31:00EDT, Tablet, [facility]/pharmacy #[id number], Partial fill upon patient request if the prescription is for a schedule II opioid drug., 63, cm, 03/28/22 11:00:00 ED... Start Date: 03/28/22 Status: Orderedclindamycin 300 mg oral capsule 1 capsule = 300 mg, By Mouth, Every 8 hours, for 7 days, # 21 capsule, 0 Refills, Acute 05/21/22 15:44:00 EST, 05/14/22 15:44:00 EST, Capsule, [facility]/pharmacy #[id number], Partial fill upon patient request if the prescription is for a schedule II opioid drug.,... Start Date: 05/14/22 Stop Date: 05/21/22 Status: Ordereddoxycycline hyclate 100 mg oral capsule 1 capsule = 100 mg, By Mouth, Daily, for 7 days, # 7 capsule, 0 Refills, Acute 05/21/22 15:43:00 EST, 05/14/22 15:43:00 EST, Capsule, [facility]/pharmacy #[id number], Partial fill upon patient request if the prescription is for a schedule II opioid drug., 160.02,... Start Date: 05/14/22 Stop Date: 05/21/22 Status: Orderedfurosemide 40 mg oral tablet 40 [...] 02/11/22 17:35:00 EDT, Route to Pharmacy Electronically, [facility]/pharmacy #[id number], 160.02, cm, 02/07/22 10:35:00 EDT, Height Start Date: 02/11/22 Status: Orderedglipizide-metformin 5 mg-500 mg oral tablet 2 tablet, By Mouth, 2 times a day, DIABETES, # 120 tablet, 2 Refills, Maintenance, 02/11/22 17:35:00EDT, Tablet, [facility]/pharmacy #[id number], 2 tablet By Mouth [...] 2 Refills, Maintenance, 02/11/22 17:35:00 EDT, Powder, [facility]/pharmacy #[id number], 160.02, cm, 02/07/22 10:35:00 EDT, Height Start Date: 02/11/22 Status: OrderedLantus Solostar Pen 100 units/mL subcutaneous solution = 20 units, Subcutaneous Injection, Daily at bedtime, Dose increase, # 15 mL, 1 Refills, Maintenance, 02/11/22 17:36:00 EDT, Solution, [facility]/pharmacy #[id number], Partial fill upon patient request if the prescription is for a schedule II opioid drug., 160.02,... Start Date: 02/11/22 Status: Orderedmontelukast 10 mg oral tablet 1, tablet, By Mouth, Daily in PM, Disregard previous script, # 30 tablet, Refills 1, Tot. Refills 1,01/31/22 10:36:00 EDT, Route to Pharmacy Electronically, [facility]/pharmacy #[id number], 160.02, cm, 12/28/21 11:08:00 EDT, Height Start Date: 01/31/22 Status: OrderedoxyCODONE 5 mg oral tablet 5 mg, Tablet, By Mouth, Every 4 hours for 7 days, PRN for Pain , Severe, Routine, 05/14/22 7:52:00 EST, Stop date 05/21/22 7:51:00 EST Start Date: 05/14/22 Stop Date: 05/14/22 Status: DiscontinuedPlavix 75 mg oral tablet 75 mg, 1, tablet, By Mouth, Daily, # 30 tablet, Refills 0, Tot. Refills 0, Maintenance, 03/28/22 14:05:00 EDT, [id number] Partial fill upon patient request ifthe [...] elevated myocardial infarction) Tobacco use Confirmed Active Results Radiology Reports Exam Date Time Procedure Performing Provider Status 05/14/22 2:24 AM Chest 2 Views Frontal and Lat Juanita Figueroa; Auth (Verified) Notes:(Chest 2 Views Frontal and Lat) Reason For Exam: Shortness of Breath RESULT: Chest 2 Views Frontal and Lat Chest 2 Views Frontal and Lat Hx of Present Illness: Pt presents by EMS from home complaining of SOB. HX of asthma and COPD. No relief from inhaler. non compliant diabetic. 100 of soltucortef. 100ml of NS. 20 RAC. 1 duoneb by EMS. Was at [facility] earlier today; Reason: Shortness of Breath; Clinical Question(s): CHF COMPARISON: 03/25/2022 FINDINGS: LINES AND TUBES: None. LUNGS AND PLEURA: Clear lungs. Normal pulmonary vascularity. No pleural effusion. No pneumothorax. HEART, MEDIASTINUM AND TIMOTHY: Heart is normal in size. Normal mediastinal and hilar contour. BONES AND SOFT TISSUES: No acute abnormality. IMPRESSION: No acute abnormality. WSN: [id number] Ordering Physician: Mila Bauer Dictated By: Pollo Arrington MD Dictated Date/Time: 05/14/22 7:34 am Reviewed By: Pollo Arrington MD Signed By: Pollo Arrington MD Signed Date/Time: 05/14/22 7:34 am Transcribed By: MINERVA Transcribed Date/Time: 05/14/22 7:33 am Exam Date Time Procedure Performing Provider Status 05/14/22 1:30 AM Foot Min 3 Views Right Abbie Toro; Auth (Ve rified) Notes:(Foot Min 3 Views Right) Reason For Exam: PainRESULT: Foot Min 3 Views Right Foot Min 3 Views Right, 3 views Hx of Present Illness: Pt presents by EMS from home complaining of SOB. HX of asthma and COPD. No relief from inhaler. non compliant diabetic. 100 of soltucortef. 100ml of NS. 20 RAC. 1 duoneb by EMS. Was at [facility] earlier today; Reason: Pain; Clinical Question(s): Foreign Body; osteomyelitis COMPARISON: None. FINDINGS: No fractures or bone lesions. There is hallux valgus deformity with mild osteoarthritis of the firstMTP joint. There is a small plantar calcaneal spur. There is calcification along the plantar fascia. No arthritic changes. Normal soft tissues. IMPRESSION: Plantar fasciitis. WSN: [id number] Ordering Physician: Mila Bauer Dictated By: Pollo Arrington MD Dictated Date/Time: 05/14/22 7:24 am Reviewed By: Pollo Arrington MD Signed By: Pollo Arrington MD Signed Date/Time: 05/14/22 7:24 am Transcribed By: MINERVA Transcribed Date/Time: 05/14/22 7:22 am Vital Signs Most recent to oldest 1 2 3 4 [Reference Range]: Oxygen Saturation 100 % 98 % 98 % [94-100 %] (05/14/22 1:22 PM) (05/14/22 12:30 PM) (05/14/22 9:45 AM) Pulse Rate [55-90 bpm] 94 bpm 99 bpm 88 bpm *H* *H* (05/14/22 9:45 AM) (05/14/22 1:22 PM) (05/14/22 12:30 PM) Blood Pressure 136/77 mm Hg 128/72 mm Hg 140/74 mm Hg [90-138/55-84 mm Hg] (05/14/22 1:22 PM) (05/14/22 12:30 PM) *H* (05/14/22 9:45 AM) Respiratory Rate [16-30 16 br/min 20 br/min 14 br/min 16 b r/min br/min] (05/14/22 1:22 PM) (05/14/22 12:30 PM) *L* (05/14/22 10:47 AM) (05/14/22 10:47 AM) Temperature [96.8-100.4 98.0 DegF 98 DegF 98 DegF DegF] (05/14/22 1:22 PM) (05/14/22 12:30 PM) (05/14/22 9:45 AM) Liters per Minute 1 L/min 1 L/min 1 L/min (05/14/22 6:33 AM) (05/14/22 4:27 AM) (05/14/22 2:10 AM) Mode of Delivery Room air Room air Room air (Oxygen) (05/14/22:22 PM) (05/14/22 12:30 PM) (05/14/22 9:45 AM) Blood pressure sites Arm, left Arm, left Arm, left (05/14/22 6:33 AM) (05/14/22 4:27 AM) (05/14/22 2:10 AM) Temperature Route Oral Oral Oral (05/14/22 1:22 PM) (05/14/22 12:30 PM) (05/14/22 9:45 AM) Social History Social History Type Response Smoking Status Current every day smoker; To bacco user in household: Yes; Type: Cigarettes; Other: more than 5 a day; entered on: 12/28/16 Sex Admission evaluation note Ana Carter: PERFORM Event Display: Admission Note Authored Date: [id number] Patient: ??KEISHA GRAHAM ? Age:??51 Years?Sex:??Female?:??1970?? Chief Complaint/Reason for Consultation Pt presents by EMS from home complaing of SOB. HX of asthma and COPD. No releif from inhaler. non compliant diabetic. 100 of soltucortef. 100ml of NS. 20 RAC. 1 duoneb by EMS. Was at [facility] earlier today History of Present Illness Ms. Graham is a 51-year-old female with a past medical history of poorly controlled insulin-dependent diabetes mellitus, hypertension, asthma, active smoker, HFrEF, CAD, obesity and recent NSTEMI who presented to the emergency department on 05/14 due to severe bilateral foot pain.?? Per EMS notes, she initially called 911 due to shortness of breath, however currently denying this.?? She reports a 3-day history of worsening right greater than left foot pain.?? She has had a wound on the left foot for which she had been seeing wound care at [facility] (tells me she was discharged 5 months ago as they said the wound was well-healed).?? She reports a new wound on the right lower extremity with some wen-oqus-lvuczzzh drainage.?? She apparently was seen in an OSH and left AMA but was discharged on oral antibiotics, noted minimal improvement.?? She has been picking at the dry skin on her right foot.?? No known injury to either feet.?? Tells me that her blood sugars are always elevated, reports compliance with insulin. Denies any numbness or tingling other than her baseline neuropathy.??She denies any fevers or chills.?? No nausea, vomiting or diarrhea.?? She has been tolerating a diet.?? Denies any shortness of breath or cough.?? No chest pain, palpitations or lower extremity edema. ?? ED course: - Vitals: Afebrile, initially tachycardic with a heart rate of 106, normotensive, saturating well on room air - EKG: NSR with a ventricular rate of 99 bpm, no ischemic changes, QTC 490 ms - Labs: Baseline microcytic anemia, WBC 10.3 with left shift, normal electrolytes and renal function, blood glucose 334, ESR 57, CRP 3.3, NT proBNP 14,390, high-sensitivity troponin 168.?? COVID-negative - XR right foot: No evidence of osteomyelitis, finding suspicious for plantar fasciitis - CXR: No acute abnormality - Intervention: Ceftriaxone 1 g x 1, metronidazole 500 mg x 1, LR bolus 500 mL x 1 ?? On my examination, the patient is sitting in the lawson in the emergency department, she is well-appearing but does appear older than stated age.?? She is very upset that she was moved into the hallway.?? She is quite agitated and upset with me when I tell her we do not have blood cultures in our system, she calls me a liar multiple is despite my explanation that although they may have been drawn, they are not currently in process.?? She is upset that any labs were done to evaluate her heart, because this is not why she came here .?? She feels that she is not being treated for taking care of andis requesting to speak with social work, which was requested.?? She states multiple times that she wants to leave [facility], though I was able to convince her to stay for IV antibiotics. Review of Systems Constitutional:??No weight loss, fever, chills, weakness or fatigue. Eyes:??No visual loss, blurred vision, double vision or yellow sclera. ENT:??No hearing loss, congestion, runny nose or sore throat. Respiratory:??No shortness of breath, cough or sputum production. Cardiovascular:??No chest pain, chest pressure or chest discomfort. No palpitations or pedal edema. Gastrointestinal:??No anorexia, nausea, vomiting or diarrhea. No abdominal pain or blood in stool. Genitourinary:??No burning micturition. No urinary frequency or incontinence. Neurologic:??No headache, dizziness, syncope, unilateral weakness, numbness or tingling. No change in bowel or bladder control. Musculoskeletal:??No muscle pain, back pain, joint pain or stiffness. (+) Bilateral foot pain Hematologic/Lymphatics:??No bleeding or bruising. No painful lymph nodes. Skin:??No rash or itching. (+) Bilateral foot wounds Endocrine:??No reports of sweating. No cold or heat intolerance. No polyuria or polydipsia. Psychiatric:??No depression or anxiety. Objective ?? Physical Exam Constitutional: 51-year-old female, appears older than stated age,??alert, in no distress. Mental Status: Oriented to person, place and time. Head: Normocephalic. Eyes: Pupils are equal, round and reactive to light. Extraocular muscles intact. Ear, Nose and Throat: Oropharynx clear, mucous membranes moist. Ears and nose without masses, lesions or deformities. Trachea midline. Neck: Supple, full range of motion. Respiratory: Clear to auscultation, diffusely diminished. No wheezing, rales or rhonchi. Cardiovascular: RRR, S1 S2 regular. No murmurs, rubs or gallops. Gastrointestinal: Abdomen soft, non-tender, non-distended. Normal bowel sounds. No pulsatile mass or hepatosplenomegaly. Genitourinary: No costovertebral angle tenderness. Neurologic: Cranial nerves II-XII grossly intact. No focal neurological deficits. Moves all extremities spontaneously. Sensation and strength??intact bilaterally in upper and lower extremities. Skin: No rashes or lesions. No petechiae or purpura.??Wound on the sole of the left mid foot dry without surrounding erythema or active drainage. Right sole of foot with dry/cracked skin, small area of ulceration on the mid lateral sole, scattered small cuts, entire foot erythematous and extremely tender to palpation. DP/PT pulses??present in bilateral feet with Doppler. (see images below) Musculoskeletal: No cyanosis or clubbing. No gross deformities. Normal range of motion. Heme/Lymphatics/Immun: Palpation of neck reveals no swelling or tenderness of neck nodes. Psychiatric: Frequently agitated and annoyed with my questioning, appears distrustful Images right foot left foot Assessment/Plan Assessment:??Ms. Graham is a 51-year-old female with a past medical history of poorly controlled insulin-dependent diabetes mellitus, hypertension, asthma, active smoker, HFrEF, CAD, obesity and recent NSTEMI who presented to the emergency department on 05/14 due to severe bilateral foot pain, found to have a diabetic foot infection. ? Diabetic foot infection (E11.628):?? Poorly controlled type 2 diabetes mellitus (E11.65):? Presenting with R>L foot pain, findings concerning for cellulitis Not currently meeting sepsis criteria, has remained afebrile without leukocytosis Previous HbA1c 11.4% (01/2022), home regimen includes glipizide, metformin, Lantus 20 units at bedtime - IV Ceftriaxone and Flagyl (PCN allergy) - Refusing blood cultures - Trend CBC and fever curve - Wound care consult - ISS/POC TID, Lantus 20 units - Tight glycemic control - Check HbA1c ? History of non-ST elevation myocardial infarction (NSTEMI) (I25.2):?? HFrEF (heart failure with reduced ejection fraction) (I50.20):?? CAD (coronary artery disease) (I25.10):? Was recently admitted 03/2022 for NSTEMI, new HFrEF Echo (03/27): Per cardiology??LVEF looks closer to 30 to 35% with wall motion abnormalities Denying any chest pain, EKG nonischemic, unclear why HSTnT was checked but elevated at 168 NT-ProBNP elevated at 14,390 although patient does appear well compensated on exam, CXR without significant edema/effusions - Continue ASA, Plavix, statin, Lasix - Continue metoprolol and lisinopril - Refusing serial troponin - Telemetry ? Chronic, stable or resolved medical conditions: Hypertension (I10):??SBP 140s, continue home lisinopril, metoprolol, HCTZ, amlodipine Asthma (J45.909):??No evidence of acute exacerbation, continue PRN albuterol nebs, Montelukast and Breo Ellipta in place of Incruse Tobacco use (Z72.0):??Reports smoking 1/2ppd which she recently cut down. Declines NRT Microcytic anemia (D50.9):??Appears stable, trend CBC. Check iron studies in AM Peripheral neuropathy: Secondary to uncontrolled DM. Continue Gabapentin nightly ? Quality measures: Diet:??Cardiac/diabetic DVT prophylaxis:??Lovenox Code status:??Full code ?? OMN: IV antibiotics Disposition: Pending PT eval, clinical improvement?? HCP: None listed, did not want me to call any friends/family?? Histories Allergies Allergies ?(Active and Proposed Allergies Only) amoxicillin? (Severity: Unknown severity, Onset: Unknown) penicillin? (Severity: Unknown severity, Onset: Unknown) ?Reactions: Hives ? Past Medical History/Problem List Active Problems??(7) CHF (congestive heart failure) COPD with asthma Family history of early CAD Hypertension NSTEMI (non-ST elevated myocardial infarction) Tobacco use Type 2 Diabetes Mellitus with peripheral neuropathy ? Past Surgical History No surgery history documented. ? Social History Employment/School Details:??Status: Unemployed. Home/Environment Details:??Living situation: Home/Independent. ??Lives with: Children, Significant other. Sexual Details:??Sexually involved in last 6 months: Yes. ??Sexual orientation: Heterosexual. Substance Abuse Details:??Use: Never. Tobacco Details:??Current every day smoker, Tobacco user in household: Yes. ??Other: more than 5 a day. ??Type: Cigarettes. ? Family History Mother: Cholesterol; Diabetes mellitus type II; Heart attack; Hypertension Sister: Heart attack ? Medications Home Medications Amlodipine (amLODIPine 10 mg oral tablet)?10?Milligram?1?tablet?By Mouth?Daily Aspirin (Aspirin Enteric Coated 81 mg oral delayed release tablet)?1?tab(s)?81?Milligram?By Mouth?Daily?for 30?Days Atorvastatin (atorvastatin 80 mg oral tablet)?1?tab(s)?80?Milligram?By Mouth?Daily at bedtime Clopidogrel (Plavix 75 mg oral tablet)?75?Milligram?1?tablet?By Mouth?Daily Fluticasone-Salmeterol (Advair HFA 115 mcg / 21 mcg)?2?puff(s)?Inhalation?2 times a day?Disregard previous script sent to pharmacy Furosemide (furosemide 40 mg oral tablet)?40?Milligram?1?tablet?By Mouth?Daily Gabapentin (gabapentin 300 mg oral capsule)?2?capsule?By Mouth?Daily at bedtime Glipizide-Metformin (glipizide-metformin 5 mg-500 mg oral tablet)?2?tab(s)?By Mouth?2 times a day?for 30?Days?DIABETES Hydrochlorothiazide-Lisinopril (hydrochlorothiazide-lisinopril 12.5 mg-20 mg oral tablet)?1?tab(s)?By Mouth?Daily Insulin Glargine (Lantus Solostar Pen 100 units/mL subcutaneous solution)?20?unit(s)?Subcutaneous Injection?Daily at bedtime?Dose increase Montelukast (montelukast 10 mg oral tablet)?1?tablet?By Mouth?Daily in PM?Disregard previous script umeclidinium (Incruse Ellipta 62.5 mcg/inh inhalation powder)?1?Each?Inhalation?Every 24 hours?doses should be taken at least 24 hours apart ? Results Recent Labs BLOOD COUNT & DIFF WBC 10.3 k/mm3 ()?? 05/14/2022 01:13 RBC 3.97 m/mm3 (Low)?? 05/14/2022 01:13 Hgb 8.9 Gm/dL (Low)?? 05/14/2022 01:13 Hct 29.6 % (Low)?? 05/14/2022 01:13 MCV 74.6 femtoliters (Low)?? 05/14/2022 01:13 MCH 22.4 pg (Low)?? 05/14/2022 01:13 MCHC 30.1 g/dL (Low)?? 05/14/2022 01:13 Platelet Count 377 k/mm3 ()?? 05/14/2022 01:13 RDW-SD 47.8 femtoliters (High)?? 05/14/2022 01:13 MPV 11.2 femtoliters ()?? 05/14/2022 01:13 Nucleated RBC (Automated) 0.0 #/100 WBC'S ()?? 05/14/2022 01:13 Abs. NRBC 0.0 k/mm3 ()?? 05/14/2022 01:13 Abs. Neut 9.1 k/mm3 (High)?? 05/14/2022 01:13 Abs. Lymph 0.8 k/mm3 ()?? 05/14/2022 01:13 Abs. [place] 0.3 k/mm3 (Low)?? 05/14/2022 01:13 Abs. Eo 0.0 k/mm3 ()?? 05/14/2022 01:13 Abs. Baso 0.0 k/mm3 ()?? 05/14/2022 01:13 Neut % 87.9 % (High)?? 05/14/2022 01:13 Lymph % 7.8 % (Low)?? 05/14/2022 01:13 [place] % 3.0 % (Low)?? 05/14/2022 01:13 Eos % 0.3 % ()?? 05/14/2022 01:13 Baso % 0.4 % ()?? 05/14/2022 01:13 Imm Gran 0.6 % ()?? 05/14/2022 01:13 Abs. Imm Gran 0.1 k/mm3 ()?? 05/14/2022 01:13 ?? BLOOD GAS pH, Venous 7.43 ()?? 05/14/2022 01:13 ?? CARDIAC Nt-Probnp 11947 pg/mL (High)?? 05/14/2022 01:13 High Sensitivity Troponin (HSTnT) 168 ng/L (Critical)?? 05/14/2022 07:26 ?? CHEM GENERAL Sodium 134 mmol/L ()?? 05/14/2022 01:13 Potassium 4.1 mmol/L ()?? 05/14/2022 01:13 Chloride 97 mmol/L (Low)?? 05/14/2022 01:13 Bicarbonate Level 27 mmol/L ()?? 05/14/2022 01:13 Anion Gap 10 ()?? 05/14/2022 01:13 Glucose Level 334 mg/dL (High)?? 05/14/2022 01:13 Glucose, POC 351 mg/dL (High)?? 05/14/2022 08:28 Beta Hydroxybutyrate 0.42 mmol/L (High)?? 05/14/2022 01:13 BUN 10 mg/dL ()?? 05/14/2022 01:13 Creatinine-Blood 0.6 mg/dL ()?? 05/14/2022 01:13 Estimated GFR Creatinine 109 ML/MIN/1.73 M2 ()?? 05/14/2022 01:13 Lactate 1.7 mmol/L ()?? 05/14/2022 01:13 C-Reactive Protein 3.3 mg/dL (High)?? 05/14/2022 01:13 ?? HEME OTHER Sed Rate 57 mm/hr (High)?? 05/14/2022 01:13 ?? VIROLOGY COVID-19 by RT-PCR NEGATIVE ()?? 05/14/2022 02:37 ? EKG study Event Display: ECG 12-Lead Authored Date: Please click on pdf link to open report Event Display: ECG 12-Lead Authored Date: Ventricular Rate: 99 BPM Atrial Rate: 99 BPM P-R Interval: 158 ms QRS Duration: 84 ms Q-T Interval: 382 ms QTC Calculation(Bazett): 490 ms P [place]: 77 degrees R [place]: 43 degrees T [place]: 108 degrees Normal sinus rhythm Nonspecific T wave abnormality Abnormal ECG When compared with ECG of 28-MAR-2022 07:41, No significant change was found Confirmed by REMEDIOS ANDREWS MD ([id number]) on 05/14/2022 8:02:24 AM [place]: REMEDIOS ANDREWS MD Note Ana Carter: PERFORM Event Display: Discharge/Transfer Note Hospital Authored Date: Patient: ??KEISHA GRAHAM ? Age:??51 Years?Sex:??Female?:??1970?? Patient Information Discharge Location: [facility] Primary Care Physician: Danica Vallejo NP Admit Date/Time: 05/14/22 03:53 Discharge Date:??05/14/2022 15:45 Discharge Disposition Discharge Disposition: ??AMA Discharge Diagnosis Diabetic foot infection (E11.628) Poorly controlled type 2 diabetes mellitus (E11.65) History of non-ST elevation myocardial infarction (NSTEMI) (I25.2) HFrEF (heart failure with reduced ejection fraction) (I50.20) CAD (coronary artery disease) (I25.10) ?? Secondary discharge diagnoses: Hypertension (I10) Asthma (J45.909) Tobacco use (Z72.0) Microcytic anemia (D50.9) _ Discharge Medications Amlodipine (amLODIPine 10 mg oral tablet)?10?Milligram?1?tablet?By Mouth?Daily Aspirin (Aspirin Enteric Coated 81 mg oral delayed release tablet)?1?tab(s)?81?Milligram?By Mouth?Daily?for 30?Days Atorvastatin (atorvastatin 80 mg oral tablet)?1?tab(s)?80?Milligram?By Mouth?Dailyat bedtime Clindamycin (clindamycin 300 mg oral capsule)?1?capsule?300?Milligram?By Mouth?Every 8 hours?for 7?Days Clopidogrel (Plavix 75 mg oral tablet)?75?Milligram?1?tablet?By Mouth?Daily Doxycycline (doxycycline hyclate 100 mg oral capsule)?1?capsule?100?Milligram?By Mouth?Daily?for 7?Days Fluticasone-Salmeterol (Advair HFA 115 mcg / 21 mcg)?2?puff(s)?Inhalation?2 times a day?Disregard previous script sent to pharmacy Furosemide (furosemide 40 mg oral tablet)?40?Milligram?1?tablet?By Mouth?Daily Gabapentin (gabapentin 300 mg oral capsule)?2?capsule?By Mouth?Daily at bedtime Glipizide-Metformin (glipizide-metformin 5 mg-500 mg oral tablet)?2?tab(s)?By Mouth?2 times a day?for 30?Days?DIABETES Hydrochlorothiazide-Lisinopril (hydrochlorothiazide-lisinopril 12.5 mg-20 mg oral tablet)?1?tab(s)?By Mouth?Daily Insulin Glargine (Lantus Solostar Pen 100 units/mL subcutaneous solution)?20?unit(s)?Subcutaneous Injection?Daily at bedtime?Dose increase Montelukast (montelukast 10 mg oral tablet)?1?tablet?By Mouth?Daily in PM?Disregard previous script umeclidinium (Incruse Ellipta 62.5 mcg/inh inhalation powder)?1?Each?Inhalation?Every 24hours?doses should be taken at least 24 hours apart Medications Started Doxycycline x 7 days Clindamycin x 7 days Medications Discontinued None Doses Changed None Allergies Allergies ?(Active and Proposed Allergies Only) amoxicillin? (Severity: Unknown severity, Onset: Unknown) penicillin? (Severity: Unknown severity, Onset: Unknown) ?Reactions: Hives PCP Follow-Up/Heads-Up Patient left AMA, please follow up regarding bilateral foot wounds. Consider referral for outpatientwound care Future Appointments 2022 2:15 PM EST ?? With: Jose Armando MORA, Radha Meg Where: [id number] [place] [address]- Hospital Course Ms. Graham is a 51-year-old female with a past medical history of poorly controlled insulin-dependent diabetes mellitus, hypertension, asthma, active smoker, HFrEF, CAD, obesity and recent NSTEMI whopresented to the emergency department on 05/14 due to severe bilateral foot pain. Per EMS notes, she i nitially called 911 due to shortness of breath, however currently denying this. She reports a 3-day history of worsening right greater than left foot pain. She has had a wound on the left foot for which she had been seeing wound care at [facility] (tells me she was discharged 5 months ago as they said the wound was well-healed). She reports a new wound on the right lower extremity with some vsu-hyoy-dwlzjbme drainage. She apparently was seen in an OSH and left AMA but was discharged on oral antibiotics, noted minimal improvement. She has been picking at the dry skin on her right foot. No known injury to either feet. Tells me that her blood sugars are always elevated, reports compliancewith insulin. Denies any numbness or tingling other than her baseline neuropathy. She denies any fevers or chills. No nausea, vomiting or diarrhea. She has been tolerating a diet. Denies any shortness of breath or cough. No chest pain, palpitations or lower extremity edema. ?? ED course: ??- Vitals: Afebrile, initially tachycardic with a heart rate of 106, normotensive, saturating well on room air ??- EKG: NSR with a ventricular rate of 99 bpm, no ischemic changes, QTC 490 ms ??- Labs: Baseline microcytic anemia, WBC 10.3 with left shift, normal electrolytes and renal function, blood glucose 334, ESR 57, CRP 3.3, NT proBNP 14,390, high-sensitivity troponin 168. COVID-negative ??- XR right foot: No evidence of osteomyelitis, finding suspicious for plantar fasciitis ??- CXR: No acute abnormality ??- Intervention: Ceftriaxone 1 g x 1, metronidazole 500 mg x 1, LR bolus 500 mL x 1 ?? On my examination, the patient is sitting in the lawson in the emergency department, she is well-appearing but does appear older than stated age. She is very upset that she was moved into the hallway. She is quite agitated and upset with me when I tell her we do not have blood cultures in our system, she calls me a liar multiple is despite my explanation that although they may have been drawn, they arenot currently in process. She is upset that any labs were done to evaluate her heart, because this is not why she came here . She feels that she is not being treated for taking care of and is requesting to speak with social work, which was requested. She states multiple times that she wants to leave A MA, though I was initially able to convince her to stay for IV antibiotics. ?? Around 1330 received message from the RN that patient wanted to leave AMA. The patient is competent and understands the risks of leaving, including permanent disability and/or , and has had an opportunity to ask questions about her condition. The patient has been informed that she may return for care at any time. The patient has decided to leave against medical advice because she feels he will do better at home and feels she is not getting any care here.??Keisha has normal mental status and adequate capacity to make medical decisions. She refuses hospital admission and wants to be discharged. The risks have been explained to the patient, worsening infection, bacteremia, chronic pain, permane nt disability and . The benefits of admission have also been explained, including the availability and proximity of nurses, physicians, monitoring, diagnostic testing, treatment and ongoing medical care. The patient was able to understand and state the risks and benefits of hospital admission. The patient was treated to the extent that they would allow and knows that they may return for care at any time. ?? See below for problem focused plan: Objective Diabetic foot infection (E11.628):?? Poorly controlled type 2 diabetes mellitus (E11.65):? Presenting with R>L foot pain, findings concerning for cellulitis Not currently meeting sepsis criteria, has remained afebrile without leukocytosis Previous HbA1c 11.4% (01/2022), home regimen includes glipizide, metformin, Lantus 20 units at bedtime - Doxycycline and clindamycin x 7 days - Consider wound care referral - Tight glycemic control ? History of non-ST elevation myocardial infarction (NSTEMI) (I25.2):?? HFrEF (heart failure with reduced ejection fraction) (I50.20):?? CAD (coronary artery disease) (I25.10):? Was recently admitted 03/2022 for NSTEMI, new HFrEF Echo (03/27): Per cardiology??LVEF looks closer to 30 to 35% with wall motion abnormalities Denying any chest pain, EKG nonischemic, unclear why HSTnT was checked but elevated at 168 NT-ProBNP elevated at 14,390 although patient does appear well compensated on exam, CXR without significant edema/effusions - Continue ASA, Plavix, statin, Lasix - Continue metoprolol and lisinopril - Refusing serial troponin - Telemetry ? Chronic, stable or resolved medical conditions: Hypertension (I10):??SBP 140s, continue home lisinopril, metoprolol, HCTZ, amlodipine Asthma (J45.909):??No evidence of acute exacerbation, continue Montelukast and Incruse Ellipta Tobacco use (Z72.0):??Reports smoking 1/2ppd which she recently cut down. Declines NRT Microcytic anemia (D50.9):??Appears stable Peripheral neuropathy: Secondary to uncontrolled DM. Continue Gabapentin nightly . Physical Exam Constitutional: 51-year-old female, appears older than stated age,??alert, in no distress. Mental Status: Oriented to person, place and time. Head: Normocephalic. Eyes: Pupils are equal, round and reactive to light. Extraocular muscles intact. Ear, Nose and Throat: Oropharynx clear, mucous membranes moist. Ears and nose without masses, lesions or deformities. Trachea midline. Neck: Supple, full range of motion. Respiratory: Clear to auscultation, diffusely diminished. No wheezing, rales or rhonchi. Cardiovascular: RRR, S1 S2 regular. No murmurs, rubs or gallops. Gastrointestinal: Abdomen soft, non-tender, non-distended. Normal bowel sounds. No pulsatile mass orhepatosplenomegaly. Genitourinary: No costovertebral angle tenderness. Neurologic: Cranial nerves II-XII grossly intact. No focal neurological deficits. Moves all extremities spontaneously. Sensation and strength??intact bilaterally in upper and lower extremities. Skin: No rashes or lesions. No petechiae or purpura.??Wound on the sole of the left mid foot dry without surrounding erythema or active drainage. Right sole of foot with dry/cracked skin, small area ofulceration on the mid lateral sole, scattered small cuts, entire foot erythematous and extremely tender to palpation. DP/PT pulses??present in bilateral feet with Doppler. (see images below) Musculoskeletal: No cyanosis or clubbing. No gross deformities. Normal range of motion. Heme/Lymphatics/Immun: Palpation of neck reveals no swelling or tenderness of neck nodes. Psychiatric: Frequently agitated and annoyed with my questioning, appears distrustful Follow-Up Appointments Added Follow Up ?Time Frame ?Comments Genevieve MORA, Danica Patient Instructions Please fill your antibiotics and follow up with your PCP You may return at any time for treatment Results Discharge Labs BLOOD COUNT & DIFF WBC 10.3 k/mm3 ()?? 05/14/2022 01:13 RBC 3.97 m/mm3 (Low)?? 05/14/2022 01:13 Hgb 8.9 Gm/dL (Low)?? 05/14/2022 01:13 Hct 29.6 % (Low)?? 05/14/2022 01:13 MCV 74.6 femtoliters (Low)?? 05/14/2022 01:13 MCH 22.4 pg (Low)?? 05/14/2022 01:13 MCHC 30.1 g/dL (Low)?? 05/14/2022 01:13 Platelet Count 377 k/mm3 ()?? 05/14/2022 01:13 RDW-SD 47.8 femtoliters (High)?? 05/14/2022 01:13 MPV 11.2 femtoliters ()?? 05/14/2022 01:13 Nucleated RBC (Automated) 0.0 #/100 WBC'S ()?? 05/14/2022 01:13 Abs. NRBC 0.0 k/mm3 ()?? 05/14/2022 01:13 Abs. Neut 9.1 k/mm3 (High)?? 05/14/2022 01:13 Abs. Lymph 0.8 k/mm3 ()?? 05/14/2022 01:13 Abs. [place] 0.3 k/mm3 (Low)?? 05/14/2022 01:13 Abs. Eo 0.0 k/mm3 ()?? 05/14/2022 01:13 Abs. Baso 0.0 k/mm3 ()?? 05/14/2022 01:13 Neut % 87.9 % (High)?? 05/14/2022 01:13 Lymph % 7.8 % (Low)?? 05/14/2022 01:13 [place] % 3.0 % (Low)?? 05/14/2022 01:13 Eos % 0.3 % ()?? 05/14/2022 01:13 Baso % 0.4 % ()?? 05/14/2022 01:13 Imm Gran 0.6 % ()?? 05/14/2022 01:13 Abs. Imm Gran 0.1 k/mm3 ()?? 05/14/2022 01:13 ?? BLOOD GAS pH, Venous 7.43 ()?? 05/14/2022 01:13 ? CARDIAC Nt-Probnp 84511 pg/mL (High)?? 05/14/2022 01:13 High Sensitivity Troponin (HSTnT) 168 ng/L (Critical)?? 05/14/2022 07:26 ?? CHEM GENERAL Sodium 134 mmol/L ()?? 05/14/2022 01:13 Potassium 4.1 mmol/L ()?? 05/14/2022 01:13 Chloride 97 mmol/L (Low)?? 05/14/2022 01:13 Bicarbonate Level 27 mmol/L ()?? 05/14/2022 01:13 Anion Gap 10 ()?? 05/14/2022 01:13 Glucose Level 334 mg/dL (High)?? 05/14/2022 01:13 Glucose, POC 259 mg/dL (High)?? 05/14/2022 12:46 Beta Hydroxybutyrate 0.42 mmol/L (High)?? 05/14/2022 01:13 BUN 10 mg/dL ()?? 05/14/2022 01:13 Creatinine-Blood 0.6 mg/dL ()?? 05/14/2022 01:13 Estimated GFR Creatinine 109 ML/MIN/1.73 M2 ()?? 05/14/2022 01:13 Lactate 1.7 mmol/L ()?? 05/14/2022 01:13 C-Reactive Protein 3.3 mg/dL (High)?? 05/14/2022 01:13 ? HEME OTHER Sed Rate 57 mm/hr (High)?? 05/14/2022 01:13 ? UA/URINALYSIS Appear/Color, Urine YELLOW ()?? 05/14/2022 13:00 Specific [place], Urine 1.020 ()?? 05/14/2022 13:00 pH, Urine 6.0 ()?? 05/14/2022 13:00 Albumin, Urine 2+ (Abnormal)?? 05/14/2022 13:00 Glucose, Urine 4+ (Abnormal)?? 05/14/2022 13:00 Ketones, Urine NEGATIVE ()?? 05/14/2022 13:00 Bilirubin, Urine NEGATIVE ()?? 05/14/2022 13:00 Hemoglobin, Urine NEGATIVE ()?? 05/14/2022 13:00 Nitrite, Urine NEGATIVE ()?? 05/14/2022 13:00 Leukocyte, Urine NEGATIVE ()?? 05/14/2022 13:00 Urobilinogen NORMAL mg/dL ()?? 05/14/2022 13:00 WBC's, Urine 3 /HPF ()?? 05/14/2022 13:00 RBC's, Urine 2 /HPF ()?? 05/14/2022 13:00 Bacteria MODERATE HPF (Abnormal)?? 05/14/2022 13:00 Squamous Epith 13 /HPF (High)?? 05/14/2022 13:00 Hyaline Cast 3 LPF (High)?? 05/14/2022 13:00 Mucus SLIGHT /LPF ()?? 05/14/2022 13:00 Hold Urine Culture Testing available 48 hours from time of collection. ()?? 05/14/2022 13:00 ?? VIROLOGY COVID-19 by RT-PCR NEGATIVE ()?? 05/14/2022 02:37 ? Microbiology ?? COVID-19 (Novel Coronavirus), Rapid PCR?? Completed?? Source: Nasal Body Site: Nose Collected Dt/Tm: 05/14/2022 02:34 Last Updated Dt/Tm: 05/14/2022 03:50 ? 35??minutes spent on discharge [facility] , CIS S: TRANSCRIBE Pollo Arrington MD: VERIFY Event Display: Result: Authored Date: Chest 2 Views Frontal and Lat Hx of Present Illness: Pt presents by EMS from home complaining of SOB. HX of asthma and COPD. No relief from inhaler. non compliant diabetic. 100 of soltucortef. 100ml of NS. 20 RAC. 1 duoneb by EMS. Was at [facility] earlier today; Reason: Shortness of Breath; Clinical Question(s): CHF COMPARISON: 03/25/2022 FINDINGS: LINES AND TUBES: None. LUNGS AND PLEURA: Clear lungs. Normal pulmonary vascularity. No pleural effusion. No pneumothorax. HEART, MEDIASTINUM AND TIMOTHY: Heart is normal in size. Normal mediastinal and hilar contour. BONES AND SOFT TISSUES: No acute abnormality. IMPRESSION: No acute abnormality. WSN: [id number] Ordering Physician: Mila Bauer Dictated By: Pollo Arrington MD Dictated Date/Time: 05/14/22 7:34 am Reviewed By: Pollo Arrington MD Signed By: Pollo Arrington MD Signed Date/Time: 05/14/22 7:34 am Transcribed By: MINERVA Transcribed Date/Time: 05/14/22 7:33 am XR Foot - right GE 3 Views [facility] , CIS S: TRANSCRIPollo Fernandez MD: VERIFY Event Display: Result: Authored Date: Foot Min 3 Views Right, 3 views Hx of Present Illness: Pt presents by EMS from home complaining of SOB. HX of asthma and COPD. No relief from inhaler. non compliant diabetic. 100 of soltucortef. 100ml of NS. 20 RAC. 1 duoneb by EMS. Was at [facility] earlier today; Reason: Pain; Clinical Question(s): Foreign Body; osteomyelitis COMPARISON: None. FINDINGS: No fractures or bone lesions. There is hallux valgus deformity with mild osteoarthritis of the firstMTP joint. There is a small plantar calcaneal spur. There is calcification along the plantar fascia. No arthritic changes. Normal soft tissues. IMPRESSION: Plantar fasciitis. WSN: [id number] Ordering Physician: Mila Bauer Dictated By: Pollo Arrington MD Dictated Date/Time: 05/14/22 7:24 am Reviewed By: Pollo Arrington MD Signed By: Pollo Arrington MD Signed Date/Time: 05/14/22 7:24 am Transcribed By: MINERVA Transcribed Date/Time: 05/14/22 7:22 am Patient Care team information Care Team PersonnelName: Janel Hart RN Position: [facility] RN Member Role: Primary Care Nurse Name: Danica Vallejo NP Position: [facility] PCO Associate Professional Member Role: PCP Address: Address: [address] [place] [address] Name: Martin BARRIENTOS Attending Position: [facility] ED Medicine Name: Mila Bauer NP Position: [facility] Associate Professional Member Role: ED Physician Landfill Grader Address: Address: [address] [place] [address] [place] [address]- Name: Su Cisneros RN Position: [facility] ED RN W/OE and Tasks Member Role: Patient Care Provider Name: Yamile Castaneda Position: [facility] ED RN W/OE and Tasks Member Role: Patient Care Provider Name: Charleen Vo Position: [facility] ED TA [facility] Member Role: Patient Care Provider Care Team Related PersonsName: ASHLEY MOELLER Address: home [address] [place] [address]
--- OUTSIDE RECORDS SUMMARY | 2022-06-13 23:28 | XMS_ITS ---
:1970 Author Care Team Providers Name Role Phone SUNDEEP MATIAS MD Primary Care Provider [phone] Allergies Code Code System Name Reaction Severity [...] 10/30/2019 XR, Toe(s), [facility] [address] [place], [place] [id number] (Work Place) 10/30/2019 XR, Foot, 3 or More View [facility] ([facility] [employer]) [address] [place] [address] (Work Place) Results Lab Results Date Name Specimen Result Interpretation Description Value Range Status Address ? 10/30/2019 Culture, ? Specimen toe left great ? Final [facility] Superficial Description Reference Wound Laboratori es: [address], [place] ? ? ? Special none ? Final [facility] Requests Referenc e Laboratori es: [address], [place] ? ? ? gram Stain ? ? Final [facility] ate Reference Laboratori es: [address] [...] ? ? Susceptibl Rifampin ? ? Final [place] [facility] Reference Laboratori es: [address] [...]
[2022-06-13 23:29] LABS: Basophils Absolute Auto 0.1 X10*3/uL (0.0-0.2); Basophils Percent Auto 0.5 % (0-2); Eosinophils Absolute Auto 0.1 X10*3/uL (0.0-0.4); Eosinophils Percent Auto 0.7 % (0-4); Hematocrit 27.1 % (37.0-47.0); Imm Gran Abs Auto 0.06 X10*3/uL (0.00-0.03); Imm Gran Pct Auto 0.6 % (0.0-0.4); Lymphocytes Absolute Auto 1.4 X10*3/uL (1.2-4.9); Lymphocytes Percent Auto 13.6 % (20-40); MANUAL DIFF FLAG SCAN; Mean Corpuscular HGB Conc 29.5 g/dl (31.0-35.0); Mean Corpuscular Hemoglobin 20.8 pg (27.0-33.0); Mean Corpuscular Volume 70.4 fL (80.0-98.0); Monocytes Absolute Auto 0.5 X10*3/uL (0.1-1.2); Monocytes Percent Auto 4.6 % (2-11); NRBC Pct Auto 0.9 /100WBC (0.0-0.2); Neutrophils Absolute Auto 8.1 x10*3/uL (2.0-8.3); Red Blood Count 3.85 X10*6/uL (4.20-5.50); Red Cell Distribution Width 18.5 % (11.0-16.0); SCAN SMEAR FLAG 1; White Blood Count 10.1 X10*3/uL (4.8-10.8)
[2022-06-13 23:30] LABS: PLT ABN DIST 1
[2022-06-13 23:42] LABS: Alanine Aminotransferase 46 U/L (0-31); Albumin Level 3.3 g/dL (3.5-5.0); Alkaline Phosphatase 106 U/L (39-117); Anion Gap 14 (12-20); Aspartate Amino Transferase 27 U/L (5-31); Bilirubin Direct 0.3 mg/dL (0.0-0.5); Bilirubin Total 0.7 mg/dL (0.0-1.0); Blood Urea Nitrogen 10 mg/dL (9-16); Calcium 8.3 mg/dL (8.4-10.2); Carbon Dioxide 26 mmol/L (22-29); Chloride 98 mmol/L (96-108); Estimated Glomerular Filt Rate > 60; Glucose Random 213 mg/dL (60-115); Lipase 4 U/L (8-78); Potassium 3.9 mmol/L (3.3-5.1); Sodium 134 mmol/L (135-145); Total Protein 5.9 g/dL (6.5-8.0)
[2022-06-13 23:43] LABS: Platelet Count 146 X10*3/uL (160-400); SLIDE REVIEW VERIFIED
[2022-06-13 23:47] LABS: B Type Natriuretic Peptide 2406 pg/mL (<100)
[2022-06-13 23:50] LABS: Troponin-I High Sensitivity 273.8 ng/L (<3.5-17.0)
[2022-06-13] MEDS: 0.9 % Sodium Chloride 1,000 ML 999 ML IV (23:56)
[2022-06-13] MEDS: methylPREDNISolone Sod Succ 125 MG/2 ML VIAL IVPUSH (23:57)
[2022-06-13] MEDS: Doxycycline Hyclate 100 MG in 0.9 % Sodium Chloride 250 ML 166.67 MG IV (23:57)
[2022-06-14] LABS: Influenza A PCR NEGATIVE (Negative); Influenza B PCR NEGATIVE (Negative); Resp Syncy Virus RNA Qual PCR NEGATIVE (Negative); SARS COV2 PCR INHOUSE NEGATIVE (Negative)
[2022-06-14] MEDS: HYDROmorphone HCl 2 MG/ML VIAL IVPUSH (00:43)
[2022-06-14 01:11] VITALS: BP 124/74; PULSE 103; RESP 20; TEMP 37; O2SAT 98
[2022-06-14 01:38] VITALS: BP 126/79; PULSE 95; RESP 16; O2SAT 100
[2022-06-14] MEDS: Furosemide 40 MG/4 ML VIAL IVPUSH ×2 (01:43→08:22)
--- OUTSIDE RECORDS SUMMARY | 2022-06-14 02:38 | XMS_ITS ---
:1970 Author Care Team Providers Name Role Phone SUNDEEP MATIAS MD Primary Care Provider [phone] Allergies Code Code System Name Reaction Severity [...] 10/30/2019 XR, To[facility](s[facility] [address] [place], [place] [id number] (Work Place) 10/30/2019 XR, Foot, 3 or More View [facility] ([facility] [employer]) [address] [place] [address] (Work Place) Results Lab Results Date Name Specimen Result Interpretation Description Value Range Status Address ? 10/30/2019 Culture, ? Specimen toe left great ? Final [facility] Superficial Description Reference Wound Laboratori es: [address], [place] ? ? ? Special none ? Final [facility] Requests Referenc e Laboratori es: [address], [place] ? ? ? gram Stain ? ? Final [facility] ate Reference Laboratori es: [address] d ? ? Susceptibl Gentamicin gentamicin ? Adwn l [facility] e susceptible Refer ence Laboratori [...] ? ? Susceptibl Rifampin ? ? Final [place] state e Reference Laboratori es: [address] [...]
[2022-06-14 02:45] LABS: C Reactive Protein 8.44 mg/dL (< or = 0.50)
--- NOTE | 2022-06-14 02:52 | PC.NURSE ---
Pt. restless upon arrival by EMS. Pt. reporting pain /. Pt.often teary and is worried that the infection is in her bone of her foot. IV was placed in pt. right AC. Pt. medicated with pain meds and MD able to drain abscess on right foot. Pt. 02 sats began to drop when sleeping. O2 delivered via NC, O2 remaining steady between 98-100. Pt. now sleeping.
[2022-06-14 03:18] LABS: Erythrocyte Sedimentation Rate 30 MM/HR (0-20)
[2022-06-14] MEDS: Morphine Sulfate 4 MG/ML CARTRIDGE IVPUSH ×2 (03:36→08:22)
[2022-06-14 03:38] LABS: Basophils Percent Auto 0.3 % (0-2); Hemoglobin 8.1 g/dl (12.0-16.0); Monocytes Absolute Auto 0.2 X10*3/uL (0.1-1.2); NRBC Pct Auto 0.4 /100WBC (0.0-0.2); Red Cell Distribution Width 18.3 % (11.0-16.0); SCAN SMEAR FLAG 1
[2022-06-14 03:40] LABS: Eosinophils Percent Auto 0.4 % (0-4); Hematocrit 28.2 % (37.0-47.0); Imm Gran Abs Auto 0.05 X10*3/uL (0.00-0.03); Imm Gran Pct Auto 0.5 % (0.0-0.4); Lymphocytes Absolute Auto 0.6 X10*3/uL (1.2-4.9); Lymphocytes Percent Auto 6.1 % (20-40); Mean Corpuscular HGB Conc 28.7 g/dl (31.0-35.0); Mean Corpuscular Hemoglobin 20.3 pg (27.0-33.0); Mean Corpuscular Volume 70.5 fL (80.0-98.0); Neutrophils Absolute Auto 8.5 x10*3/uL (2.0-8.3); Neutrophils Percent Auto 90.7 % (45-73); PLT CLUMP 1; WBC ABN SCTR 1
--- NOTE | 2022-06-14 03:42 | PC.NURSE ---
Pt. awake and reporting an increase in pain. Pt. medicated with morphine per AUG. Vi has about 10 min remaining. Will hang cepefime as soon as it's done.
[2022-06-14 03:44] LABS: MANUAL DIFF FLAG SCAN; PLT ABN DIST 1; Platelet Count 169 X10*3/uL (160-400); WBC ABN SCTR FOR CBC 1; White Blood Count 9.5 X10*3/uL (4.8-10.8)
[2022-06-14 03:51] LABS: Appearance Urine Cloudy; Color Urine Yellow; Glucose Urine UA Negative (Negative); Leukocyte Esterase Urine Moderate (2+) (Negative); Nitrite Urine Negative (Negative); PH 5.5 (5.0-9.0); Specific Gravity - Urine <= 1.005 (1.005-1.025); UMIC TRIGGER UACC YES; Urine Blood Negative (Negative); Urine Ketones Negative (Negative); Urine Protein 30 (1+) mg/dL (Neg-Trace)
[2022-06-14 03:56] LABS: Bacteria Urine 1+ (None Seen); Hyaline Casts Urine 0-2 /LPF (0-2); RBC Urine 0-2 /HPF (0-2); Squamous Epithelial Cell Urine >20 /HPF (0-2); UACC Culture Trigger YES
[2022-06-14 03:57] LABS: Anion Gap 11 (12-20); Blood Urea Nitrogen 9 mg/dL (9-16); Carbon Dioxide 25 mmol/L (22-29); Chloride 103 mmol/L (96-108); Creatinine Clr Calc Pharmacy 84.8; Estimated Glomerular Filt Rate > 60; Glucose Random 127 mg/dL (60-115); Potassium 4.2 mmol/L (3.3-5.1); Sodium 135 mmol/L (135-145)
[2022-06-14] MEDS: iohexoL 350 MG/ML 100 ML INFUS..BTL 85 ML IV (04:02)
--- NOTE | 2022-06-14 04:09 | PC.NURSE ---
Vi finished running. Pt. in CT scan. Will hang cefepime upon return.
[2022-06-14 04:10] LABS: Troponin-I High Sensitivity 294.5 ng/L (<3.5-17.0)
[2022-06-14] MEDS: cefEPime HCl 2 GM in 0.9 % Sodium Chloride 50 ML IV (04:35)
[2022-06-14 06:19] VITALS: BP 108/68; PULSE 86; RESP 20; TEMP 37.1; O2SAT 97
--- NOTE | 2022-06-14 06:21 | PHA.PROG ---
Admission Date/Time: June 14, 2022 02:19 Indication: OTHER (FOOT ABCESS?) Weight in k.1 kg Adjusted body weight in K.68 Levan body weight in Kg: Obesity Dosing Indication % IBW: Serum Creatinine - Last 168 Hours 06/13/22 06/14/22 23:15 03:28 Creatinine 0.88 0.81 Estimated CrCl and GFR - Last 168 Hours 06/13/22 06/14/22 23:15 03:28 Estim Creat Clear Calc 78.0 84.8 Estimated GFR > 60 > 60 Vancomycin Loading Dose: 2000 MG Current Vancomycin Dosing Regimen: 1000MG Q12H Vancomycin Monitoring using AUC goal of 400 - 600 range with trough as surrogate marker: AUC 486, TROUGH 15.3 Date and Time for next Vancomycin Level to be drawn: 06/15 @1000 Pharmacist Comments on Vancomycin Plan: PT BMI IS 32.5, HOWEVER WILL USE THE NON-OBESE MODEL. CAN ADJUST AFTER LEVEL OR CHANGE MODEL Vancomycin dosing will take advantage of [employer] as a clinical decision support tool that uses Bayesian modeling to calculate individual patient's pharmacokinetic parameters and forecast the patient's drug concentration time course with the target goal AUC 24 range of 400 - 600 mg/L/hr.
--- NOTE | 2022-06-14 06:26 | P.HPHOSP_ITS ---
History of Present Illness Date of Service: 06/14/22 Chief Complaint: foot pain and swelling 51-year-old female with past medical history of COPD, asthma, diastolic heart failure with preserved ejection fraction, diabetes, hypertension, history of osteomyelitis, presents to the hospital with complaints of right foot swelling, pain, as well as shortness of breath, cough and increased sputum production. Patient reports that her symptoms started about 3-4 days ago. She has also noticed fever, with a high fever of 103 at home, she reports that she also burned her left lateral [place] area against the heater which she fell sleep, she noticed swelling at the base of her right foot that also started about 340s ago, reports shortness of breath, cough, sputum production. Patient reports generalized abdominal pain with coughing, chest pain with coughing, reports orthopnea and PND. has no nausea vomiting, no urinary symptoms and no diarrhea or constipation. On arrival to the ED patient found to have a heart rate of 107, respiratory rate of 22 Labs are significant for WBC count of 10.1, hemoglobin of 8, hematocrit 27.1, previously 9.2 and 30.5 about a month ago, ESR 30, troponin of 273 that increase d to 94, CRP of 8.4, BNP of 2400, UA positive for leukocyte Estrace and WBC, viral serology negative Right foot CT shows no abscess in the evidence of osteomyelitis Abdomen pelvic CT shows no acute abnormality seen on abdominal pelvic CT, bilateral pleural effusion, left adrenal nodule, small bilateral nonobstructive renal calculi, small volume of abdominal ascites, generalized anasarca moderate hepatic splenomegaly Review of Systems Review of Systems: Yes all other systems are reviewed and are negative [facility] Medical History Asthma Atherosclerotic cardiovascular disease Atrial tachycardia COPD (chronic obstructive pulmonary disease) COVID-19 vaccine series completed Diabetes Diabetic toe ulcer Essential hypertension GERD (gastroesophageal reflux disease) Hypertension Osteomyelitis Family History Mother Hx of CABG Sister CAD (coronary artery disease) Surgical History History of esophagogastroduodenoscopy (EGD) History of toe surgery (09/22/21) Social History Household Members: Family Housing: Apartment Do you presently have visiting nurse or other home services: No Alcohol intake: never Patient Tobacco Use Status: Current everyday Tobacco user Tobacco use type: Cigarette Cigarette Packs Per Day: 0.5 Cigarettes Per Day: 10.0 Years Smoked: 43 Smoked in Last 30 Days: Yes e-Cigarette/Vaping Use: Never Used Second Hand Smoke Exposure: Yes Use of substances other than those prescribed or required for medical reasons: No Advance Directives: No Advance Directives Date on File: 12/28/20 service: No Current occupational status: unemployed Meds Allergies Allergy/AdvReac Type Severity Reaction Status Date / Time Penicillins [PENICILLINS] Allergy Severe RASH Verified 02/14/22 07:59 amoxicillin [AMOXICILLIN] Allergy Intermediate HIVES Verified 02/11/22 15:09 codeine Allergy Itching Verified 04/17/22 12:14 Active Medications: Current Medications Acetaminophen (Acetaminophen 325 Mg Tablet) 650 mg PO Q6H PRN PRN Reason: Pain, Mild (Pain Scale 1-3) Dextrose (Dextrose 50 % 25 Gm/50 Ml Syringe) 25 gm IVPUSH Q15M PRN; Protocol PRN Reason: per Hypoglycemia Standing Ord. Docusate Sodium (Docusate Sodium 100 Mg Capsule) 100 mg PO DAILY PRN PRN Reason: Constipation Furosemide (Furosemide 40 Mg/4 Ml Vial) 40 mg IVPUSH BID@0800,1700 [facility]; Protocol Glucose (Glucose Gel 15 Gm Gel..Gram.) 15 gm PO Q15M PRN; Protocol PRN Reason: per Hypoglycemia Standing Ord. Cefepime HCl 2 gm/ Sodium (Chloride) 50 mls @ 100 mls/hr IV Q8H M[place] Vancomycin HCl 1,000 mg/ (Sodium Chloride) 270 mls @ 270 mls/hr IV Q12H [facility] Insulin Human Lispro (Insulin Lispro 100 Unit/Ml 3 Ml Vial) 0 unit SUBCUT QIDACHS [facility]; Protocol Morphine Sulfate (Morphine Sulfate 4 Mg/Ml Cartridge) 4 mg IVPUSH Q4H PRN; Protocol PRN Reason: Pain, Severe (Pain Scale 7-10) Last Admin: 06/14/22 03:36 Dose: 4 mg Ondansetron HCl (Ondansetron Hcl 4 Mg/2 Ml Vial) 4 mg IVPUSH Q8H PRN PRN Reason: Nausea and Vomiting Pharmacy Consult (Consult Rx Perform Med Rec) 1 each MISCELLANE ONCE PRN PRN Reason: Consult order Pharmacy Consult (Consult Rx Vancomycin Dosing) 1 each MISCELLANE DAILY PRN PRN Reason: Consult order Sodium Chloride (0.9 % Sodium Chloride Flush 3 Ml Syringe) 3 ml IVFLUSH [facility] Medications Medication Instructions Recorded Confirmed Last Taken Type aspirin 81 mg tablet,delayed 1 tab PO DAILY 12/24/20 06/14/22 04/30/22 History release fluticasone propionate 115 2 puff inhalation BID 12/24/20 06/14/22 04/30/22 History mcg-salmeterol 21 mcg/actuation HFA inhaler (Advair HFA) glipizide 5 mg-metformin 500 mg 2 tab PO BID 12/24/20 06/14/22 04/30/22 History tablet lisinopril 20 1 tab PO DAILY 10/31/21 06/14/22 04/30/22 History mg-hydrochlorothiazide 12.5 mg tablet umeclidinium 62.5 mcg/actuation 1 puff PO DAILY 10/31/21 06/14/22 04/30/22 History blister powder for inhalation (Incruse Ellipta) montelukast 10 mg tablet 1 tab PO BEDTIME 02/13/22 06/14/22 04/30/22 History insulin glargine 100 unit/mL (3 20 unit subcut BEDTIME 03/23/22 06/14/22 04/30/22 History mL) subcutaneous pen (Lantus Solostar U-100 Insulin) atorvastatin 80 mg tablet 80 mg PO BEDTIME 05/01/22 06/14/22 04/30/22 History clopidogrel 75 mg tablet 75 mg PO DAILY 05/01/22 06/14/22 04/30/22 History furosemide 40 mg tablet 40 mg PO DAILY 05/01/22 06/14/22 04/30/22 History gabapentin 300 mg capsule 2 cap PO BEDTIME 05/01/22 06/14/22 04/30/22 History metoprolol succinate 25 mg 25 mg PO DAILY 05/01/22 06/14/22 04/30/22 History tablet,extended release 24 hr Physical Exam Vital Signs and Narrative: Vital Signs: Last Vital Signs Temp 98.7 F 06/14/22 06:19 Pulse 86 06/14/22 06:19 Resp 20 06/14/22 06:19 BP 108/68 06/14/22 06:19 Pulse Ox 97 06/14/22 06:19 O2 Del Method 06/14/22 06:19 O2 Flow Rate 2 06/14/22 01:38 BMI result Body Mass Index 32.4 Const: Other: ill appearing teary eyes Eyes: General: appearance normal, both eyes and all related structures Resp: Other: crackles bilateraly at the bases Effort & Inspection: normal respiratory effort Cardio: Rate: regular rate Rhythm: regular rhythm GI: Other: non-tender, distened , no rebound or guaridng Palpation (GI): Firmness to palpation present (GI) Auscultation: normal bowel sounds Skin: Other: a bullae at the medial aspect of left lower extremity, just above the left ankle, there is drainaga of clear frluid, erythema, tenderness at planta aspenct, well healed scar right foot edematous ,w evidence of serosanguineous fluid just below the surface , tender , warm Neuro: Cognition (Neuro): normal cognition Extrem: Other: see skin 2+ lower extremity edema General: Yes normal to inspection Results Labs CBC and Chem 7: 06/14/22 03:28 06/14/22 03:28 Labs: Laboratory Results - last 24 hr 06/13/22 06/13/22 06/13/22 22:44 23:15 23:15 MCV 70.4 L MCH 20.8 L MCHC 29.5 L RDW 18.5 H Plt Count 146 L D MPV Not Reportable Immature Gran % (Auto) 0.6 H Neut % (Auto) 80.0 H Lymph % (Auto) 13.6 L [place] % (Auto) 4.6 Eos % (Auto) 0.7 Baso % (Auto) 0.5 Lymph # (Auto) 1.4 [place] # (Auto) 0.5 Eos # (Auto) 0.1 Baso # (Auto) 0.1 Abs Immat Gran (auto) 0.06 H Absolute Neuts (auto) 8.1 Absolute Nucleated RBC 0.090 H Nucleated RBC % (auto) 0.9 H Smear Tech's Comments VERIFIED ESR Anion Gap 14 Estim Creat Clear Calc 78.0 Estimated GFR > 60 POC Glucose 240 H Random Glucose 213 H D Lactic Acid Calcium 8.3 L D Total Bilirubin 0.7 Direct Bilirubin 0.3 AST 27 D ALT 46 H Alkaline Phosphatase 106 Troponin I High Sens C-Reactive Protein 8.44 H B-Natriuretic Peptide Total Protein 5.9 L Albumin 3.3 L Lipase 4 L Urine Color Urine Appearance Urine pH Ur Specific [place] Urine Protein Urine Glucose (UA) Urine Ketones Urine Blood Urine Nitrite Ur Leukocyte Esterase Urine RBC Urine WBC Ur Squamous Epith Cells Urine Bacteria Hyaline Casts Influenza Type A (PCR) Influenza Type B (PCR) RSV RNA Qual (PCR) SARS-CoV-2 RNA (RT-PCR) 06/13/22 06/13/22 06/13/22 23:15 23:15 23:15 MCV MCH MCHC RDW Plt Count MPV Immature Gran % (Auto) Neut % (Auto) Lymph % (Auto) [place] % (Auto) Eos % (Auto) Baso % (Auto) Lymph # (Auto) [place] # (Auto) Eos # (Auto) Baso # (Auto) Abs Immat Gran (auto) Absolute Neuts (auto) Absolute Nucleated RBC Nucleated RBC % (auto) Smear Tech's Comments ESR Anion Gap Estim Creat Clear Calc Estimated GFR POC Glucose Random Glucose Lactic Acid 2.0 Calcium Total Bilirubin Direct Bilirubin AST ALT Alkaline Phosphatase Troponin I High Sens 273.8 H* D C-Reactive Protein B-Natriuretic Peptide 2406 H Total Protein Albumin Lipase Urine Color Urine Appearance Urine pH Ur Specific [place] Urine Protein Urine Glucose (UA) Urine Ketones Urine Blood Urine Nitrite Ur Leukocyte Esterase Urine RBC Urine WBC Ur Squamous Epith Cells Urine Bacteria Hyaline Casts Influenza Type A (PCR) Influenza Type B (PCR) RSV RNA Qual (PCR) SARS-CoV-2 RNA (RT-PCR) 06/13/22 06/14/22 06/14/22 23:15 03:28 03:28 MCV 70.5 L MCH 20.3 L MCHC 28.7 L RDW 18.3 H Plt Count 169 MPV Not Reportable Immature Gran % (Auto) 0.5 H Neut % (Auto) 90.7 H Lymph % (Auto) 6.1 L [place] % (Auto) 2.0 Eos % (Auto) 0.4 Baso % (Auto) 0.3 Lymph # (Auto) 0.6 L [place] # (Auto) 0.2 Eos # (Auto) 0.0 Baso # (Auto) 0.0 Abs Immat Gran (auto) 0.05 H Absolute Neuts (auto) 8.5 H Absolute Nucleated RBC 0.040 H Nucleated RBC % (auto) 0.4 H Smear Tech's Comments ESR Anion Gap Estim Creat Clear Calc Estimated GFR POC Glucose Random Glucose Lactic Acid Calcium Total Bilirubin Direct Bilirubin AST ALT Alkaline Phosphatase Troponin I High Sens 294.5 H* C-Reactive Protein B-Natriuretic Peptide Total Protein Albumin Lipase Urine Color Urine Appearance Urine pH Ur Specific [place] Urine Protein Urine Glucose (UA) Urine Ketones Urine Blood Urine Nitrite Ur Leukocyte Esterase Urine RBC Urine WBC Ur Squamous Epith Cells Urine Bacteria Hyaline Casts Influenza Type A (PCR) NEGATIVE Influenza Type B (PCR) NEGATIVE RSV RNA Qual (PCR) NEGATIVE SARS-CoV-2 RNA (RT-PCR) NEGATIVE 06/14/22 06/14/22 06/14/22 03:28 03:46 23:15 MCV MCH MCHC RDW Plt Count MPV Immature Gran % (Auto) Neut % (Auto) Lymph % (Auto) [place] % (Auto) Eos % (Auto) Baso % (Auto) Lymph # (Auto) [place] # (Auto) Eos # (Auto) Baso # (Auto) Abs Immat Gran (auto) Absolute Neuts (auto) Absolute Nucleated RBC Nucleated RBC % (auto) Smear Tech's Comments ESR 30 H Anion Gap 11 L Estim Creat Clear Calc 84.8 Estimated GFR > 60 POC Glucose Random Glucose 127 H Lactic Acid Calcium 8.0 L Total Bilirubin Direct Bilirubin AST ALT Alkaline Phosphatase Troponin I High Sens C-Reactive Protein B-Natriuretic Peptide Total Protein Albumin Lipase Urine Color Yellow Urine Appearance Cloudy Urine pH 5.5 Ur Specific [place] <= 1.005 Urine Protein 30 (1+) H Urine Glucose (UA) Negative Urine Ketones Negative Urine Blood Negative Urine Nitrite Negative Ur Leukocyte Esterase Moderate (2+) H Urine RBC 0-2 Urine WBC 6-10 H Ur Squamous Epith Cells >20 Urine Bacteria 1+ Hyaline Casts 0-2 Influenza Type A (PCR) Influenza Type B (PCR) RSV RNA Qual (PCR) SARS-CoV-2 RNA (RT-PCR) Imaging Radiologist's Impressions: Impressions Abdomen/Pelvis CT 06/13/22 23:58 IMPRESSION: 1. No acute abnormality CT scan abdomen pelvis. 2. Bilateral pleural effusions. 3. Stable left adrenal nodule. 4. Small bilateral nonobstructive renal calculi. No hydronephrosis. 5. Small volume of abdominal ascites. Generalized anasarca. 6. Moderate hepatosplenomegaly. Fleischner guidelines were followed. Chest X-Ray 06/14/22 00:15 IMPRESSION: * Trace right pleural effusion. * Right middle lobe and lower lobe streaky opacities could represent atelectasis or infiltrate. Elbow X-Ray 06/14/22 00:15 IMPRESSION: * No acute findings. Foot X-Ray 06/14/22 00:15 IMPRESSION: * No radiographic evidence of osteomyelitis. * Soft tissue ulcer along the lateral midfoot. Foot CT 06/14/22 04:34 IMPRESSION: * No CT evidence of osteomyelitis. * Ulcer along the inferolateral plantar surface with induration of the underlying fat. No drainable collection. Assessment and Plan (1) Acute exacerbation of chronic obstructive pulmonary disease: Status: Acute (2) Cellulitis of leg, right: Status: Acute (3) Congestive heart failure: Status: Acute (4) Elevated troponin level not due myocardial infarction: Status: Acute Plan 51-year-old female with past medical history as mentioned above presents to the hospital with cough, increased sputum production fever, as well as lower extremity skin abnormalities # acute exacerbation of COPD - has cough, sputum production, and increased dyspnea - possible pneumonia on chest x-ray opacity - patient treated with IV antibiotics - follow cultures # CHF exacerbation - diastolic heart failure - has increased BNP, orthopnea, PND, lower extremity edema - will treat with IV Lasix - strict I&O, low-sodium diet, daily weight, cardiology consulted - hold off on echo waiting Cardiology recommendation #cellulitis of right lower extremity - evidence of serosanguineous fluid just below the the plantar surface of the right foot - has erythema, warmth, tenderness - evidence of osteomyelitis, - will treat with IV antibiotics - follow cultures - Gen surg consulted for possible I&D although fo clear abscess on ct of the foot - wound care # elevated troponin - likely type 2 in the setting of CHF - denies any cardiac chest pain - monitor # diabetes - hold oral antihyperglycemics - continue home Lantus - place on low-dose sinus cancer # hypertension - stable - continue antihypertensives Time Spent With Patient Time: Total time managing care of this patient today ____ minutes. Quality Stroke Does the patient have a stroke diagnosis?: No VTE Prior VTE?: No VTE Risk Level:: Medical - moderate - high VTE Device Contraindication: Treatment Not Indicated VTE Drug Contraindication: N/A - Med Ordered
[2022-06-14 07:04] VITALS: BP 110/60; PULSE 94; RESP 16; TEMP 36.3; O2SAT 95
[2022-06-14 07:25] LABS: Glucose, Whole Blood 243 mg/dL (60-115)
[2022-06-14 07:38] LABS: Ferritin 51 ng/mL (10-250)
[2022-06-14 07:52] LABS: Folate 6.9 ng/mL (> or = 4.0); Vitamin B12 500 pg/mL (200-900)
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
[2022-06-14] MEDS: Insulin Lispro 100 UNIT/ML 3 ML VIAL SUBCUT (08:03)
[2022-06-14] MEDS: 0.9 % Sodium Chloride Flush 3 ML SYRINGE IVFLUSH (08:23)
[2022-06-14 08:39] LABS: Iron 9 mcg/dL (30-160); Percent Iron Saturation 3 % (15-50); Total Iron Binding Capacity 282 mcg/dL (228-428); Unsaturated Iron Binding 273 ug/dL
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
--- NOTE | 2022-06-14 10:24 | MHC.CM.PN ---
CM spoke with Patient over the phone @ [phone]. Patient lives in an apartment with her , 2 Daughters and her Son and she required no services nor DME [employer]. Patient's Daughter/Crystal is her HCP and Patient indicated that she presently has no PCP. At the end of the conversation, CM asked if Patient's goal was to return home and she stated, I'm already home. Per ROUNDS discussion, Patient left AMA.
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
--- NOTE | 2022-06-14 12:00 | PHA.MEDREC ---
Pharmacy Consult ? Medication Reconciliation Pharmacy has completed the medication reconciliation. Patient poor historian of medications. Went based off claim history and called pharmacy to confirm. Patient's HCP on file did not know patient's medications either.
== END 2022-06-14 04:00 | disposition left against medical advice (07) | DRG 140 ==
LOC: HO.ED 06-14 01:16 → HO.EDOVER 06-14 02:36
PROVIDERS: Internal Medicine; Admitting Provider Internal Medicine; Emergency Provider Emergency Medicine; PCP Internal Medicine; Visit Provider Family Medicine
DX: J44.1 Chronic obstructive pulmonary disease with (acute) exacerbation (principal); I50.33 Acute on chronic diastolic (congestive) heart failure; L03.115 Cellulitis of right lower limb; L97.829 Non-pressure chronic ulcer of other part of left lower leg with unspecified severity; I11.0 Hypertensive heart disease with heart failure; E11.622 Type 2 diabetes mellitus with other skin ulcer; I25.10 Atherosclerotic heart disease of native coronary artery without angina pectoris; K21.9 Gastro-esophageal reflux disease without esophagitis; R79.89 Other specified abnormal findings of blood chemistry; F17.210 Nicotine dependence, cigarettes, uncomplicated; Z20.822 Contact with and (suspected) exposure to COVID-19; Z71.6 Tobacco abuse counseling; Z79.02 Long term (current) use of antithrombotics/antiplatelets; Z79.4 Long term (current) use of insulin; Z79.82 Long term (current) use of aspirin; Z79.899 Other long term (current) drug therapy
CPT/HCPCS: 0241U; 36415; 71045; 73080; 73630; 73701; 74176; 80048; 80076; 81001; 82607; 82728; 82746; 82947; 83540; 83605; 83690; 83880; 84484; 85025; 85652; 86140; 87040; 87086; 93005; 94640; 99221; 99285; J0692; J1170; J1940; J2270; J2930; J3370; Q9957; Q9967

== ENCOUNTER 2022-06-18 21:49 | Inpatient (IN) | payer MEDICAID, SELFPAY ==
--- NOTE | ~2022-06-18 | XR_ITS ---
EXAMINATION: XR CHEST CLINICAL INFORMATION: Dyspnea COMPARISON: Earlier same date TECHNIQUE: AP view of the chest was obtained. FINDINGS: Similar-appearing bibasilar streaky opacities in the right midlung opacity. No large pleural effusion. No pneumothorax. Normal heart size and pulmonary vascularity. Aorta is atherosclerotic. No acute osseous abnormalities. XR/XR chest 1V IMPRESSION: * Similar-appearing bibasilar streaky opacities and right midlung opacity.
--- NOTE | ~2022-06-18 | US_ITS ---
EXAMINATION: Noninvasive assessment of the bilateral lower extremities with ARTERIAL DUPLEX CLINICAL INFORMATION: Peripheral vascular disease TECHNIQUE: Duplex Doppler techniques with waveform analysis and measurement of velocities in the bilateral common femoral, profunda femoris, superficial femoral, popliteal and tibial arteries were performed. COMPARISON: None FINDINGS: DIRECT DUPLEX DOPPLER FINDINGS: RIGHT LEG: Common femoral artery: 251 cm/s, phasicity: Monophasic. Moderate calcified plaque Profunda femoris artery: 126 cm/s, phasicity: Monophasic Superficial femoral artery (proximal): Occluded Superficial femoral artery (mid): Occluded Superficial femoral artery (distal): 410 cm/s, phasicity: Monophasic Popliteal artery: 38.8 cm/s, phasicity: Monophasic Posterior tibial artery: Not visualized Peroneal artery: 74.2 cm/s, phasicity: Monophasic LEFT LEG: Common femoral artery: 244 cm/s, phasicity: Monophasic Profunda femoris artery: 137 cm/s, phasicity: Monophasic Superficial femoral artery (proximal): 170 cm/s, phasicity: Triphasic Superficial femoral artery (mid): Occluded Superficial femoral artery (distal): 30.2 cm/s, phasicity: Monophasic Popliteal artery: 24.0 cm/s, phasicity: Monophasic Posterior tibial artery: 26.3 cm/s, phasicity: Monophasic Peroneal artery: 10.5 cm/s, phasicity: Monophasic US/US arterial duplex LE BI IMPRESSION: Right leg: 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 There is likely occlusion of the posterior tibial artery below the knee Left leg: Chronic total occlusion of the mid to superficial femoral artery with reconstituted flow in the popliteal artery.
--- NOTE | ~2022-06-18 | XR_ITS ---
EXAMINATION: XR FOOT, RIGHT XR FOOT, LEFT CLINICAL INFORMATION: Swelling. COMPARISON: Right foot CT dated 06/14/2022 and left foot radiograph dated 04/30/2022. TECHNIQUE: AP, lateral, and oblique views of each foot. FINDINGS: RIGHT FOOT: Diffuse soft tissue swelling. Ulceration at the plantar/lateral aspect of the midfoot. Bones are osteopenic. Mild to moderate multifocal osteoarthritis is evident in the midline and forefoot. No appreciable osseous erosions or osteolysis. No fractures. Moderate sized enthesopathic spur is present at the plantar fascial origin on the calcaneus. LEFT FOOT: Second toe is again noted to be absent at the level of the metatarsal head which has a chronic deformity. This is unchanged as compared to prior. Soft tissues are swollen diffusely. Bones are osteopenic. Mild multifocal osteoarthritis in the midfoot and forefoot, most notably at the second MTP joint. No new sites of erosion or osteolysis are identified to indicate osteomyelitis. No fractures. Small enthesopathic spur is present at the plantar fascial origin on the calcaneus. XR/XR foot LT 2V IMPRESSION: 1. Soft tissue ulceration at the plantar/lateral aspect of the right midfoot. No new findings of osteomyelitis. Diffuse soft tissue swelling. 2. Chronic deformity of the left second toe at the level of the metatarsal head, unchanged as compared to prior. No acute osseous findings. Diffuse soft tissue swelling
--- NOTE | ~2022-06-18 | XR_ITS ---
EXAMINATION: XR CHEST CLINICAL INFORMATION: Dyspnea. COMPARISON: Chest radiograph 06/14/2022. TECHNIQUE: Frontal view of the chest was obtained. FINDINGS: Slightly decreased right middle lobe and right lower lobe airspace opacities. Decreased right-sided pleural effusion with trace amount of residual fluid. New subtle haziness of the left lateral costophrenic angle, raising the possibility of a small amount of pleural fluid. No pneumothorax. Normal appearance of the cardiomediastinal silhouette. No acute osseous abnormalities. XR/XR chest 1V IMPRESSION: 1. Slightly decreased right middle lobe and right lower lobe airspace opacities. 2. Decreased right-sided pleural effusion. 3. New subtle haziness of the left lateral costophrenic angle, raising the possibility of a small amount of pleural fluid.
--- NOTE | ~2022-06-18 | XR_ITS ---
EXAMINATION: XR FOOT, RIGHT XR FOOT, LEFT CLINICAL INFORMATION: Swelling. COMPARISON: Right foot CT dated 06/14/2022 and left foot radiograph dated 04/30/2022. TECHNIQUE: AP, lateral, and oblique views of each foot. FINDINGS: RIGHT FOOT: Diffuse soft tissue swelling. Ulceration at the plantar/lateral aspect of the midfoot. Bones are osteopenic. Mild to moderate multifocal osteoarthritis is evident in the midline and forefoot. No appreciable osseous erosions or osteolysis. No fractures. Moderate sized enthesopathic spur is present at the plantar fascial origin on the calcaneus. LEFT FOOT: Second toe is again noted to be absent at the level of the metatarsal head which has a chronic deformity. This is unchanged as compared to prior. Soft tissues are swollen diffusely. Bones are osteopenic. Mild multifocal osteoarthritis in the midfoot and forefoot, most notably at the second MTP joint. No new sites of erosion or osteolysis are identified to indicate osteomyelitis. No fractures. Small enthesopathic spur is present at the plantar fascial origin on the calcaneus. XR/XR foot RT 2V IMPRESSION: 1. Soft tissue ulceration at the plantar/lateral aspect of the right midfoot. No new findings of osteomyelitis. Diffuse soft tissue swelling. 2. Chronic deformity of the left second toe at the level of the metatarsal head, unchanged as compared to prior. No acute osseous findings. Diffuse soft tissue swelling
--- NOTE | ~2022-06-18 | CT_ITS ---
EXAMINATION: CT ANGIOGRAM CHEST CLINICAL INFORMATION: Aortic plaque seen on echo COMPARISON: Chest CT 03/23/2022 TECHNIQUE: Multiple axial images were obtained through the chest after the administration of 70 mL of Omnipaque 350 intravenous contrast. Extensive vascular post-processing including two-dimensional and three-dimensional reformatted images were created and reviewed on an independent workstation. This CT examination was performed using dose optimization techniques as appropriate, variously including the following: *Automated exposure control *Adjustment of mA and/or kV according to patient size (this includes techniques or standardized protocols for targeted exams where dose is matched to indication/reason for exam; i.e. extremities or head) *Use of iterative reconstruction technique DLP: 367 mGy-cm VASCULAR FINDINGS: The thoracic aorta appears unremarkable. Some minimal calcific plaque is present. No aortic aneurysm, dissection or intramural hematoma is seen. Normal three-vessel branching pattern of the arch is present with widely patent great vessels. The small visualized portion of the abdominal aorta demonstrates noncalcific plaque without aneurysm. The celiac SMA and 2 renal arteries are seen which are all patent. Although not carried out for evaluation of the pulmonary arteries or pulmonary veins, no significant abnormality is seen. NONVASCULAR FINDINGS: LUNGS: At the time of the prior study, there was marked septal thickening which has significantly improved. However, there are new multifocal peripheral groundglass infiltrates seen in both upper lobes. There is worsening of compressive bibasilar atelectasis/collapse. MEDIASTINUM: Heart size is now enlarged and increased significantly when compared to the prior study. This is best appreciated on the coronal imaging. PLEURA: Bilateral pleural effusions have increased in size since the prior study and are now moderate AXILLA: No lymphadenopathy. UPPER ABDOMEN: There is splenomegaly and I suspect hepatomegaly although the liver is not included on this exam. OSSEOUS STRUCTURES: Unremarkable. CT/CT angio chest aorta IMPRESSION: Unremarkable examination. Fleischner guidelines were followed. IMPRESSION: 1. No evidence of aortic aneurysm, dissection or intramural hematoma. 2. New cardiomegaly and worsening of bilateral pleural effusions. Could this patient have a cardiomyopathy? 3. New multifocal groundglass infiltrates in the upper lobes. Findings worrisome for viral pneumonia. Much less likely felt to be atypical CHF 4. Incidental note made of splenomegaly and probable hepatomegaly. Fleischner guidelines were followed. This critical result was discussed with Dr. Best, the covering hospitalist, at 8:00 PM on the evening of the exam and it was ascertained that the content and urgency of the report was understood at the time of direct communication.
[2022-06-18 21:54] VITALS: BP 120/87; PULSE 104; O2SAT 100; BMI 26.5
[2022-06-18 22:08] VITALS: BP 130/71; PULSE 104; RESP 16; TEMP 37; O2SAT 99
--- OUTSIDE RECORDS SUMMARY | 2022-06-18 22:08 | XMS_ITS ---
:1970 Author Care Team Providers Name Role Phone SUNDEEP MATIAS MD Primary Care Provider [phone] Allergies Code Code System Name Reaction Severity [...] 10/30/2019 XR, Toe(s), 2 or [facility] [address] [place], [place] [id number] (Work Place) 10/30/2019 XR, Foot, 3 or More View [facility] ([facility] [employer]) [address] [place] [address] (Work Place) Results Lab Results Date Name Specimen Result Interpretation Description Value Range Status Address ? 10/30/2019 Culture, ? Specimen toe left great ? Final [facility] Superficial Description Reference Wound Laboratori es: [address], [place] ? ? ? Special none ? Final [facility] Requests Referenc e Laboratori es: [address] [...] ? ? Susceptibl Rifampin ? ? Final [place] state e Reference Laboratori es: [address] [...]
--- NOTE | 2022-06-18 22:43 | ED_ITS ---
HPI - General Adult General Chief complaint: General Medical Stated complaint: Sob/Back Pain/Foot Pain Time Seen by Provider: 06/18/22 22:21 Source: patient and EMS Mode of arrival: EMS Limitations: no limitations History of Present Illness HPI narrative: 51-year-old female presents via EMS for multiple complaints. Onset (ago): week(s) Location: chest, back, abdomen, left, right and lower extremity Severity: severe Severity scale (1-10): 10 Pain Consistency: constant Relieving factors: none Associated symptoms: cough, fever/chills, headaches, malaise and weakness Related Data Home Medications Medication Instructions Recorded Confirmed aspirin 81 mg tablet,delayed 1 tab PO DAILY 12/24/20 06/14/22 release fluticasone propionate 115 2 puff inhalation BID 12/24/20 06/14/22 mcg-salmeterol 21 mcg/actuation HFA inhaler (Advair HFA) glipizide 5 mg-metformin 500 mg 2 tab PO BID 12/24/20 06/14/22 tablet lisinopril 20 1 tab PO DAILY 10/31/21 06/14/22 mg-hydrochlorothiazide 12.5 mg tablet umeclidinium 62.5 mcg/actuation 1 puff PO DAILY 10/31/21 06/14/22 blister powder for inhalation (Incruse Ellipta) montelukast 10 mg tablet 1 tab PO BEDTIME 02/13/22 06/14/22 insulin glargine 100 unit/mL (3 20 unit subcut BEDTIME 03/23/22 06/14/22 mL) subcutaneous pen (Lantus Solostar U-100 Insulin) atorvastatin 80 mg tablet 80 mg PO BEDTIME 05/01/22 06/14/22 clopidogrel 75 mg tablet 75 mg PO DAILY 05/01/22 06/14/22 furosemide 40 mg tablet 40 mg PO DAILY 05/01/22 06/14/22 gabapentin 300 mg capsule 2 cap PO BEDTIME 05/01/22 06/14/22 metoprolol succinate 25 mg 25 mg PO DAILY 05/01/22 06/14/22 tablet,extended release 24 hr Allergies Allergy/AdvReac Type Severity Reaction Status Date / Time Penicillins [PENICILLINS] Allergy Severe RASH Verified 02/14/22 07:59 amoxicillin [AMOXICILLIN] Allergy Intermediate HIVES Verified 02/11/22 15:09 codeine Allergy Itching Verified 04/17/22 12:14 Review of Systems Review of Systems: Constitutional: Positive Fever, positive Chills ENT/Mouth: No Ear Pain, No Hoarseness, No sore throat Eyes: No Eye Pain, No Swelling, No Redness, No Foreign Body Cardiovascular: No Chest Pain, No SOB Respiratory: Positive Cough, No Dyspnea Gastrointestinal: Positive Nausea, No Vomiting, No Diarrhea, positive abdominal Pain Genitourinary: No Dysuria, No Hematuria Musculoskeletal: positive bilateral foot pain, No Myalgias, No Joint Swelling Skin: Positive bilateral lower extremity chronic wounds, No Skin lacerations, No rash Neuro: Positive Weakness, No Numbness, No Paresthesias, No Dizziness, No Headache Psych: No Anxiety/Panic, No Depression Yes all other systems are reviewed and are negative [facility] Past Medical History Attestation statement: The following information was validated with the patient. Source: old records reviewed Medical History Asthma Atherosclerotic cardiovascular disease Atrial tachycardia COPD (chronic obstructive pulmonary disease) COVID-19 vaccine series completed Diabetes Diabetic toe ulcer Essential hypertension GERD (gastroesophageal reflux disease) Hypertension Left against medical advice Osteomyelitis Surgical History History of esophagogastroduodenoscopy (EGD) History of toe surgery (09/22/21) Family History Family History Mother Hx of CABG Sister CAD (coronary artery disease) Social History Social History Household Members: Family Housing: Apartment Do you presently have visiting nurse or other home services: No Alcohol intake: current Alcohol intake frequency: a few times a week Alcohol type: wine and hard liquor Patient Tobacco Use Status: Current everyday Tobacco user Tobacco use type: Cigarette Cigarette Packs Per Day: 0.5 Cigarettes Per Day: 10.0 Years Smoked: 43 Smoked in Last 30 Days: Yes e-Cigarette/Vaping Use: Never Used Second Hand Smoke Exposure: Yes Use of substances other than those prescribed or required for medical reasons: Yes Advance Directives: No Advance Directives Information Provided: No Advance Directives Date on File: 12/28/20 service: No Current occupational status: disabled Physical Exam ED Vital Signs: Vital Signs - 24 hr 06/18/22 22:08 06/18/22 23:09 Temperature 98.6 F Pulse Rate 104 H 107 H Respiratory Rate 16 18 Blood Pressure 130/71 Pulse Oximetry 99 BMI result Body Mass Index 26.5 Appearance: Alert. Oriented X3. Moderate distress. Eyes: Pupils equal, round and reactive to light. ENT: Pharynx normal. Neck: Normal inspection. Neck supple. CVS: Tachycardic heart rate and rhythm. Pulses normal. Respiratory: No respiratory distress. Expiratory wheezing throughout. Abdomen: Soft and diffusely tender. Skin: Skin warm and dry. Normal skin color. Normal skin turgor. Extremities: Bilateral lower extremity edema to the pelvis, including vaginal labia, chronic wounds to bilateral lower dorsal aspects of feet. Neuro: No motor deficit. No sensory deficit. Cranial nerves 2-12 intact. Course Course Course Narrative: 51-year-old female presents with multiple complaints. Patient has a history of COPD, diastolic heart failure, insulin-dependent diabetes, neuropathy, chronic bilateral foot wounds with history of osteomyelitis, hypertension, presents to the emergency department for multiple concerns. She did leave this facility on 06/14/2022 against medical advice and was admitted for diabetic foot infections, congestive heart failure, elevated troponins not due to myocardial infarction, COPD exacerbation, and pneumonia. According to patient's discharge summary written by hospitalist on 06/14/2022, patient was given p.o. antibiotics upon discharge against medical advice. At this time, I feel that we will continue with the regimen of vancomycin and doxycycline. Considering patient's history of elevated troponins, will order ACS workup at this time. Will give albuterol, start doxycycline, vancomycin, give Lasix 60 mg IV push, order for lactic, cultures, and additional labs. 23:45 I did discuss this patient with hospitalist, hospitalist agrees to continue the plan and will admit. 00:04 troponin 1266.2, discussion with Dr. Montano, treating for NSTEMI with heparin. Consultations Consultation #1: Dusty Medications Administered Generic Name Dose Route Start Last Admin Trade Name Freq PRN Reason Stop Dose Admin Atorvastatin Calcium 40 mg 06/19/22 01:20 06/19/22 01:30 Atorvastatin Calcium 40 Mg Tablet PO 40 mg BEDTIME MÓNICA Administration Vancomycin HCl 1,000 mg/ 535 mls @ 267.5 mls/hr 06/18/22 23:00 06/19/22 02:54 Vancomycin HCl 750 mg/ Sodium IV Infused Chloride ONCE MÓNICA Infusion Cefepime HCl 2 gm/ Sodium 50 mls @ 100 mls/hr 06/19/22 01:15 06/19/22 02:54 Chloride IV Infused Q8H MÓNICA Infusion Discontinued Medications Generic Name Dose Route Start Last Admin Trade Name Angel PRN Reason Stop Dose Admin Albuterol Sulfate 7.5 mg/ 10 mg 06/18/22 22:48 06/18/22 23:07 Albuterol Sulfate 2.5 mg INHALE 06/18/22 22:49 10 mg ONCE ONE Administration Aspirin 325 mg 06/19/22 01:03 06/19/22 01:30 Aspirin 325 Mg Tablet PO 06/19/22 01:04 325 mg ONCE ONE Administration Doxycycline Monohydrate 100 mg 06/18/22 22:46 06/18/22 23:02 Doxycycline Monohydrate 100 Mg Capsule PO 06/18/22 22:47 100 mg ONCE ONE Administration Furosemide 60 mg 06/18/22 22:46 06/18/22 23:02 Furosemide 100 Mg/10 Ml Vial IVPUSH 06/18/22 22:47 60 mg ONCE ONE Administration Protocol Heparin Sodium (Porcine) 5,400 unit 06/19/22 00:05 06/19/22 00:29 Heparin Sodium,Porcine 5,000 Unit/Ml Vial 80 unit/kg (5400 unit) 06/19/22 00:06 5,400 unit IVPUSH Administration ONCE ONE Methylprednisolone Sodium Succinate 125 mg 06/18/22 22:49 06/18/22 23:02 Methylprednisolone Sod Succ 125 Mg/2 Ml Vial IVPUSH 06/18/22 22:50 125 mg ONCE ONE Administration Morphine Sulfate 4 mg 06/19/22 00:24 06/19/22 00:28 Morphine Sulfate 4 Mg/Ml Cartridge IVPUSH 06/19/22 00:25 4 mg ONCE ONE Administration Protocol Medical Decision Making Differential Diagnosis Differential Diagnoses: The differential diagnosis associated with the prese ntation includes Cellulitis, COPD exacerbation, diabetic foot infection, NSTEMI Admission/Observation Consideration of admission/observation: Escalation of care including admission/observation considered Patient will be admitted at this time Consult Healthcare Provider Management of the patient was discussed with: Hospitalist Lab Data MDM Lab Attestation statement: I reviewed the patient's lab results. 06/18/22 22:42 06/18/22 22:42 Labs: Lab Results 06/18/22 06/18/22 06/18/22 Range/Units 22:42 22:42 23:18 WBC 9.1 (4.8-10.8) X10*3/uL RBC 4.32 (4.20-5.50) X10*6/uL Hgb 8.7 L (12.0-16.0) g/dl Hct 30.8 L (37.0-47.0) % MCV 71.3 L (80.0-98.0) fL MCH 20.1 L (27.0-33.0) pg MCHC 28.2 L (31.0-35.0) g/dl RDW 18.7 H (11.0-16.0) % Plt Count 266 D (160-400) X10*3/uL MPV TNP Immature Gran % (Auto) 0.8 H (0.0-0.4) % Neut % (Auto) 76.3 H (45-73) % Lymph % (Auto) 15.1 L (20-40) % Pershing % (Auto) 6.1 (2-11) % Eos % (Auto) 1.1 (0-4) % Baso % (Auto) 0.6 (0-2) % Lymph # (Auto) 1.4 (1.2-4.9) X10*3/uL Pershing # (Auto) 0.6 (0.1-1.2) X10*3/uL Eos # (Auto) 0.1 (0.0-0.4) X10*3/uL Baso # (Auto) 0.1 (0.0-0.2) X10*3/uL Abs Immat Gran (auto) 0.07 H (0.00-0.03) X10*3/uL Absolute Neuts (auto) 6.9 (2.0-8.3) x10*3/uL Absolute Nucleated RBC 0.050 H (0.0-0.012) X10*3/uL Nucleated RBC % (auto) 0.6 H (0.0-0.2) /100WBC Smear Tech's Comments VERIFIED PT (10.0-13.1) SEC INR (0.9-1.1) APTT (26.0-36.4) SEC Sodium 141 (135-145) mmol/L Potassium 4.5 (3.3-5.1) mmol/L Chloride 105 (96-108) mmol/L Carbon Dioxide 27 (22-29) mmol/L Anion Gap 14 (12-20) BUN 9 (9-16) mg/dL Creatinine 0.82 (0.5-1.4) mg/dL Estim Creat Clear Calc 76.0 Estimated GFR > 60 Random Glucose 156 H (60-115) mg/dL Lactic Acid 2.2 H* (0.5-2.0) mmol/L Calcium 8.0 L (8.4-10.2) mg/dL Magnesium 1.8 (1.6-2.6) mg/dL Total Bilirubin 0.5 (0.0-1.0) mg/dL AST 23 (5-31) U/L ALT 50 H (0-31) U/L Alkaline Phosphatase 93 (39-117) U/L Troponin I High Sens (<3.5-17.0) ng/L B-Natriuretic Peptide (<100) pg/mL Total Protein 5.6 L (6.5-8.0) g/dL Albumin 3.0 L (3.5-5.0) g/dL Urine Color Urine Appearance Urine pH (5.0-9.0) Ur Specific [place] (1.005-1.025) Urine Protein (Neg-Trace) mg/dL Urine Glucose (UA) (Negative) mg/dL Urine Ketones (Negative) mg/dL Urine Blood (Negative) Urine Nitrite (Negative) Ur Leukocyte Esterase (Negative) Urine RBC (0-2) /HPF Urine WBC (0-5) /HPF Ur Squamous Epith Cells (0-2) /HPF Urine Bacteria (None Seen) Hyaline Casts (0-2) /LPF Urine Opiates Screen (Not Detect) Urine Fentanyl Screen (Not Detect) Ur Barbiturates Screen (Not Detect) Ur Phencyclidine Scrn (Not Detect) Ur Amphetamines Screen (Not Detect) U Benzodiazepines Scrn (Not Detect) Urine Cocaine Screen (Not Detect) U Marijuana (THC) Screen (Not Detect) Ethyl Alcohol mg/dL Influenza Type A (PCR) (Negative) Influenza Type B (PCR) (Negative) RSV RNA Qual (PCR) (Negative) SARS-CoV-2 RNA (RT-PCR) (Negative) 06/18/22 06/18/22 06/18/22 Range/Units 23:18 23:18 23:18 WBC (4.8-10.8) X10*3/uL RBC (4.20-5.50) X10*6/uL Hgb (12.0-16.0) g/dl Hct (37.0-47.0) % MCV (80.0-98.0) fL MCH (27.0-33.0) pg MCHC (31.0-35.0) g/dl RDW (11.0-16.0) % Plt Count (160-400) X10*3/uL MPV Immature Gran % (Auto) (0.0-0.4) % Neut % (Auto) (45-73) % Lymph % (Auto) (20-40) % Pershing % (Auto) (2-11) % Eos % (Auto) (0-4) % Baso % (Auto) (0-2) % Lymph # (Auto) (1.2-4.9) X10*3/uL Pershing # (Auto) (0.1-1.2) X10*3/uL Eos # (Auto) (0.0-0.4) X10*3/uL Baso # (Auto) (0.0-0.2) X10*3/uL Abs Immat Gran (auto) (0.00-0.03) X10*3/uL Absolute Neuts (auto) (2.0-8.3) x10*3/uL Absolute Nucleated RBC (0.0-0.012) X10*3/uL Nucleated RBC % (auto) (0.0-0.2) /100WBC Smear Tech's Comments PT 13.6 H (10.0-13.1) SEC INR 1.2 H (0.9-1.1) APTT 28.3 D (26.0-36.4) SEC Sodium (135-145) mmol/L Potassium (3.3-5.1) mmol/L Chloride (96-108) mmol/L Carbon Dioxide (22-29) mmol/L Anion Gap (12-20) BUN (9-16) mg/dL Creatinine (0.5-1.4) mg/dL Estim Creat Clear Calc Estimated GFR Random Glucose (60-115) mg/dL Lactic Acid (0.5-2.0) mmol/L Calcium (8.4-10.2) mg/dL Magnesium (1.6-2.6) mg/dL Total Bilirubin (0.0-1.0) mg/dL AST (5-31) U/L ALT (0-31) U/L Alkaline Phosphatase (39-117) U/L Troponin I High Sens 1266.2 H* D (<3.5-17.0) ng/L B-Natriuretic Peptide 3605 H (<100) pg/mL Total Protein (6.5-8.0) g/dL Albumin (3.5-5.0) g/dL Urine Color Urine Appearance Urine pH (5.0-9.0) Ur Specific [place] (1.005-1.025) Urine Protein (Neg-Trace) mg/dL Urine Glucose (UA) (Negative) mg/dL Urine Ketones (Negative) mg/dL Urine Blood (Negative) Urine Nitrite (Negative) Ur Leukocyte Esterase (Negative) Urine RBC (0-2) /HPF Urine WBC (0-5) /HPF Ur Squamous Epith Cells (0-2) /HPF Urine Bacteria (None Seen) Hyaline Casts (0-2) /LPF Urine Opiates Screen (Not Detect) Urine Fentanyl Screen (Not Detect) Ur Barbiturates Screen (Not Detect) Ur Phencyclidine Scrn (Not Detect) Ur Amphetamines Screen (Not Detect) U Benzodiazepines Scrn (Not Detect) Urine Cocaine Screen (Not Detect) U Marijuana (THC) Screen (Not Detect) Ethyl Alcohol mg/dL Influenza Type A (PCR) (Negative) Influenza Type B (PCR) (Negative) RSV RNA Qual (PCR) (Negative) SARS-CoV-2 RNA (RT-PCR) (Negative) 06/18/22 06/18/22 06/18/22 Range/Units 23:18 23:24 23:39 WBC (4.8-10.8) X10*3/uL RBC (4.20-5.50) X10*6/uL Hgb (12.0-16.0) g/dl Hct (37.0-47.0) % MCV (80.0-98.0) fL MCH (27.0-33.0) pg MCHC (31.0-35.0) g/dl RDW (11.0-16.0) % Plt Count (160-400) X10*3/uL MPV Immature Gran % (Auto) (0.0-0.4) % Neut % (Auto) (45-73) % Lymph % (Auto) (20-40) % Pershing % (Auto) (2-11) % Eos % (Auto) (0-4) % Baso % (Auto) (0-2) % Lymph # (Auto) (1.2-4.9) X10*3/uL Pershing # (Auto) (0.1-1.2) X10*3/uL Eos # (Auto) (0.0-0.4) X10*3/uL Baso # (Auto) (0.0-0.2) X10*3/uL Abs Immat Gran (auto) (0.00-0.03) X10*3/uL Absolute Neuts (auto) (2.0-8.3) x10*3/uL Absolute Nucleated RBC (0.0-0.012) X10*3/uL Nucleated RBC % (auto) (0.0-0.2) /100WBC Smear Tech's Comments PT (10.0-13.1) SEC INR (0.9-1.1) APTT (26.0-36.4) SEC Sodium (135-145) mmol/L Potassium (3.3-5.1) mmol/L Chloride (96-108) mmol/L Carbon Dioxide (22-29) mmol/L Anion Gap (12-20) BUN (9-16) mg/dL Creatinine (0.5-1.4) mg/dL Estim Creat Clear Calc Estimated GFR Random Glucose (60-115) mg/dL Lactic Acid (0.5-2.0) mmol/L Calcium (8.4-10.2) mg/dL Magnesium (1.6-2.6) mg/dL Total Bilirubin (0.0-1.0) mg/dL AST (5-31) U/L ALT (0-31) U/L Alkaline Phosphatase (39-117) U/L Troponin I High Sens (<3.5-17.0) ng/L B-Natriuretic Peptide (<100) pg/mL Total Protein (6.5-8.0) g/dL Albumin (3.5-5.0) g/dL Urine Color Yellow Urine Appearance Cloudy Urine pH 6.0 (5.0-9.0) Ur Specific [place] 1.010 (1.005-1.025) Urine Protein 30 (1+) H (Neg-Trace) mg/dL Urine Glucose (UA) Negative (Negative) mg/dL Urine Ketones Negative (Negative) mg/dL Urine Blood Negative (Negative) Urine Nitrite Negative (Negative) Ur Leukocyte Esterase Large (3+) H (Negative) Urine RBC 3-5 H (0-2) /HPF Urine WBC 6-10 H (0-5) /HPF Ur Squamous Epith Cells 11-20 (0-2) /HPF Urine Bacteria 1+ (None Seen) Hyaline Casts 0-2 (0-2) /LPF Urine Opiates Screen (Not Detect) Urine Fentanyl Screen (Not Detect) Ur Barbiturates Screen (Not Detect) Ur Phencyclidine Scrn (Not Detect) Ur Amphetamines Screen (Not Detect) U Benzodiazepines Scrn (Not Detect) Urine Cocaine Screen (Not Detect) U Marijuana (THC) Screen (Not Detect) Ethyl Alcohol < 10 mg/dL Influenza Type A (PCR) NEGATIVE (Negative) Influenza Type B (PCR) NEGATIVE (Negative) RSV RNA Qual (PCR) NEGATIVE (Negative) SARS-CoV-2 RNA (RT-PCR) NEGATIVE (Negative) 06/18/22 Range/Units 23:39 WBC (4.8-10.8) X10*3/uL RBC (4.20-5.50) X10*6/uL Hgb (12.0-16.0) g/dl Hct (37.0-47.0) % MCV (80.0-98.0) fL MCH (27.0-33.0) pg MCHC (31.0-35.0) g/dl RDW (11.0-16.0) % Plt Count (160-400) X10*3/uL MPV Immature Gran % (Auto) (0.0-0.4) % Neut % (Auto) (45-73) % Lymph % (Auto) (20-40) % Pershing % (Auto) (2-11) % Eos % (Auto) (0-4) % Baso % (Auto) (0-2) % Lymph # (Auto) (1.2-4.9) X10*3/uL Pershing # (Auto) (0.1-1.2) X10*3/uL Eos # (Auto) (0.0-0.4) X10*3/uL Baso # (Auto) (0.0-0.2) X10*3/uL Abs Immat Gran (auto) (0.00-0.03) X10*3/uL Absolute Neuts (auto) (2.0-8.3) x10*3/uL Absolute Nucleated RBC (0.0-0.012) X10*3/uL Nucleated RBC % (auto) (0.0-0.2) /100WBC Smear Tech's Comments PT (10.0-13.1) SEC INR (0.9-1.1) APTT (26.0-36.4) SEC Sodium (135-145) mmol/L Potassium (3.3-5.1) mmol/L Chloride (96-108) mmol/L Carbon Dioxide (22-29) mmol/L Anion Gap (12-20) BUN (9-16) mg/dL Creatinine (0.5-1.4) mg/dL Estim Creat Clear Calc Estimated GFR Random Glucose (60-115) mg/dL Lactic Acid (0.5-2.0) mmol/L Calcium (8.4-10.2) mg/dL Magnesium (1.6-2.6) mg/dL Total Bilirubin (0.0-1.0) mg/dL AST (5-31) U/L ALT (0-31) U/L Alkaline Phosphatase (39-117) U/L Troponin I High Sens (<3.5-17.0) ng/L B-Natriuretic Peptide (<100) pg/mL Total Protein (6.5-8.0) g/dL Albumin (3.5-5.0) g/dL Urine Color Urine Appearance Urine pH (5.0-9.0) Ur Specific [place] (1.005-1.025) Urine Protein (Neg-Trace) mg/dL Urine Glucose (UA) (Negative) mg/dL Urine Ketones (Negative) mg/dL Urine Blood (Negative) Urine Nitrite (Negative) Ur Leukocyte Esterase (Negative) Urine RBC (0-2) /HPF Urine WBC (0-5) /HPF Ur Squamous Epith Cells (0-2) /HPF Urine Bacteria (None Seen) Hyaline Casts (0-2) /LPF Urine Opiates Screen Not Detected (Not Detect) Urine Fentanyl Screen Not Detected (Not Detect) Ur Barbiturates Screen Not Detected (Not Detect) Ur Phencyclidine Scrn Not Detected (Not Detect) Ur Amphetamines Screen Not Detected (Not Detect) U Benzodiazepines Scrn Not Detected (Not Detect) Urine Cocaine Screen Not Detected (Not Detect) U Marijuana (THC) Screen Not Detected (Not Detect) Ethyl Alcohol mg/dL Influenza Type A (PCR) (Negative) Influenza Type B (PCR) (Negative) RSV RNA Qual (PCR) (Negative) SARS-CoV-2 RNA (RT-PCR) (Negative) Independent Interpretation I performed an independent interpretation of an: Plain X-Ray Radiology Impression Discussion of test interpretation with radiology: I have reviewed the radiologist's reading. Radiologist Impression: FINDINGS: RIGHT FOOT: Diffuse soft tissue swelling. Ulceration at the plantar/lateral aspect of the midfoot. Bones are osteopenic. Mild to moderate multifocal osteoarthritis is evident in the midline and forefoot. No appreciable osseous erosions or osteolysis. No fractures. Moderate sized enthesopathic spur is present at the plantar fascial origin on the calcaneus. ? LEFT FOOT: Second toe is again noted to be absent at the level of the metatarsal head which has a chronic deformity. This is unchanged as compared to prior. Soft tissues are swollen diffusely. Bones are osteopenic. Mild multifocal osteoarthritis in the midfoot and forefoot, most notably at the second MTP joint. No new sites of erosion or osteolysis are identified to indicate osteomyelitis. No fractures. Small enthesopathic spur is present at the plantar fascial origin on the calcaneus.? XR/XR foot LT 2V IMPRESSION: 1.? Soft tissue ulceration at the plantar/lateral aspect of the right midfoot. No new findings of osteomyelitis. Diffuse soft tissue swelling. 2.? Chronic deformity of the left second toe at the level of the metatarsal head, unchanged as compared to prior. No acute osseous findings. Diffuse soft tissue swelling ? External Record Review External record reviewed: Inpatient record, Outpatient record and Prior outpatient labs Prescription Management I considered prescription management with: Pain Medication and Antibiotic Chronic Conditions Patient?s care impacted by: Diabetes and Hypertension Critical Care Time Critical Care Time Critical Care Time: Yes Total Critical Care Time: 45 Attestation: I have personally provided critical care time exclusive of time spent on separately billable procedures. Time includes review of laboratory data, radiology results, discussion with consultants, and monitoring for potential decompensation. Interventions were performed as documented. Discharge Plan Discharge Clinical Impression: COPD (chronic obstructive pulmonary disease), Cellulitis, Diabetic foot infection, CHF (congestive heart failure), Acute non-ST elevation myocardial infarction (NSTEMI) Patient Disposition: Admitted As Inpatient
--- NOTE | 2022-06-18 22:44 | ECG_ITS ---
Test Reason : asthma sob Blood Pressure : / mmHG Vent. Rate : 102 BPM Atrial Rate : 102 BPM P-R Int : 146 ms QRS Dur : 084 ms QT Int : 368 ms P-R-T Axes : 078 058 093 degrees QTc Int : 479 ms Sinus tachycardia Low voltage QRS Septal infarct (cited on or before 13-JUN-2022) Abnormal ECG When compared with ECG of 13-JUN-2022 22:53, No significant change was found Referred By: Annette Ambrosio Electronically Signed By:WENDY JIMENES
[2022-06-18 22:50] LABS: Hemoglobin 8.7 g/dl (12.0-16.0); SCAN SMEAR FLAG 1
[2022-06-18 22:52] LABS: Basophils Absolute Auto 0.1 X10*3/uL (0.0-0.2); Basophils Percent Auto 0.6 % (0-2); Eosinophils Absolute Auto 0.1 X10*3/uL (0.0-0.4); Eosinophils Percent Auto 1.1 % (0-4); Hematocrit 30.8 % (37.0-47.0); Imm Gran Abs Auto 0.07 X10*3/uL (0.00-0.03); Imm Gran Pct Auto 0.8 % (0.0-0.4); Lymphocytes Absolute Auto 1.4 X10*3/uL (1.2-4.9); Lymphocytes Percent Auto 15.1 % (20-40); MANUAL DIFF FLAG SCAN; Mean Corpuscular HGB Conc 28.2 g/dl (31.0-35.0); Mean Corpuscular Hemoglobin 20.1 pg (27.0-33.0); Mean Corpuscular Volume 71.3 fL (80.0-98.0); Monocytes Absolute Auto 0.6 X10*3/uL (0.1-1.2); Monocytes Percent Auto 6.1 % (2-11); NRBC Pct Auto 0.6 /100WBC (0.0-0.2); Neutrophils Absolute Auto 6.9 x10*3/uL (2.0-8.3); Neutrophils Percent Auto 76.3 % (45-73); PLT CLUMP 1; Red Blood Count 4.32 X10*6/uL (4.20-5.50); Red Cell Distribution Width 18.7 % (11.0-16.0)
[2022-06-18 22:55] LABS: PLT ABN DIST 1
[2022-06-18] MEDS: methylPREDNISolone Sod Succ 125 MG/2 ML VIAL IVPUSH (23:02)
[2022-06-18] MEDS: Doxycycline Monohydrate 100 MG CAPSULE PO (23:02)
[2022-06-18] MEDS: Furosemide 100 MG/10 ML VIAL 60 MG IVPUSH (23:02)
[2022-06-18 23:07] LABS: Alanine Aminotransferase 50 U/L (0-31); Alkaline Phosphatase 93 U/L (39-117); Anion Gap 14 (12-20); Aspartate Amino Transferase 23 U/L (5-31); Bilirubin Total 0.5 mg/dL (0.0-1.0); Blood Urea Nitrogen 9 mg/dL (9-16); Carbon Dioxide 27 mmol/L (22-29); Chloride 105 mmol/L (96-108); Estimated Glomerular Filt Rate > 60; Glucose Random 156 mg/dL (60-115); Magnesium 1.8 mg/dL (1.6-2.6); Potassium 4.5 mmol/L (3.3-5.1); Sodium 141 mmol/L (135-145); Total Protein 5.6 g/dL (6.5-8.0)
[2022-06-18] MEDS: Albuterol Sulfate 7.5 MG, Albuterol Sulfate (0.083%) 2.5 MG 10 MG INHALE (23:07)
[2022-06-18 23:09] VITALS: PULSE 107; RESP 18; O2SAT 98
[2022-06-18 23:12] LABS: Platelet Count 266 X10*3/uL (160-400); White Blood Count 9.1 X10*3/uL (4.8-10.8)
[2022-06-18 23:41] LABS: INTERNATIONAL NORM RATIO 1.2 (0.9-1.1); Prothrombin Time 13.6 SEC (10.0-13.1)
[2022-06-18 23:44] LABS: Partial Thromboplastin Time 28.3 SEC (26.0-36.4)
[2022-06-18 23:44] LABS: SLIDE REVIEW VERIFIED
[2022-06-18 23:45] LABS: Appearance Urine Cloudy; Color Urine Yellow; Glucose Urine UA Negative (Negative); Leukocyte Esterase Urine Large (3+) (Negative); Nitrite Urine Negative (Negative); UMIC TRIGGER UACC YES; Urine Blood Negative (Negative); Urine Ketones Negative (Negative); Urine Protein 30 (1+) mg/dL (Neg-Trace)
[2022-06-18 23:49] LABS: Ethanol < 10 mg/dL
[2022-06-18 23:50] LABS: Lactic Acid 2.2 mmol/L (0.5-2.0)
[2022-06-18 23:54] LABS: Amphetamine Screen Urine Not Detected (Not Detect); Barbiturates, Urine Not Detected (Not Detect); Benzodiazepines Screen Urine Not Detected (Not Detect); Cannabinoid Screen Urine Not Detected (Not Detect); Cocaine Screen Urine Not Detected (Not Detect); Fentanyl, urine Not Detected (Not Detect); Opiate Screen Urine Not Detected (Not Detect); Phencyclidine Screen Urine Not Detected (Not Detect)
[2022-06-18 23:55] LABS: B Type Natriuretic Peptide 3605 pg/mL (<100)
[2022-06-18 23:56] LABS: Bacteria Urine 1+ (None Seen); Hyaline Casts Urine 0-2 /LPF (0-2); UACC Culture Trigger YES
[2022-06-19] VITALS (15 sets, daily range): BP systolic 111–137; BP diastolic 66–82; PULSE 82–104; RESP 12–21; TEMP 36.2–37.1; O2SAT 92–99
[2022-06-19 00:04] LABS: Troponin-I High Sensitivity 1266.2 ng/L (<3.5-17.0)
[2022-06-19 00:08] LABS: Influenza A PCR NEGATIVE (Negative); Influenza B PCR NEGATIVE (Negative); Resp Syncy Virus RNA Qual PCR NEGATIVE (Negative); SARS COV2 PCR INHOUSE NEGATIVE (Negative)
[2022-06-19] MEDS: Morphine Sulfate 4 MG/ML CARTRIDGE IVPUSH ×4 (00:28→15:10)
[2022-06-19] MEDS: Heparin Sodium,Porcine 5,000 UNIT/ML VIAL 5400 UNIT IVPUSH (00:29)
[2022-06-19] MEDS: vancomycin HCL 1,000 MG, vancomycin HCL 750 MG in 0.9 % Sodium Chloride 500 ML 267.5 MG IV (00:48)
--- NOTE | 2022-06-19 00:55 | PM.IMHP ---
History of Present Illness Date of Service: 06/19/22 Chief Complaint: Pain this is a 51-year-old female with pertinent history of COPD, diastolic heart failure, insulin-dependent diabetes mellitus with neuropathy, essential hypertension who presents to the emergency department with right foot pain and swelling. Patient has multiple complaints at this time. She was admitted on 06/14 for COPD exacerbation, acute on chronic CHF, sepsis due to diabetic foot infection and community-acquired pneumonia but left AMA. Patient states she is here for similar complaints. Her right foot is bothering her and she has been having intense pain. She also complains of chest discomfort, dyspnea with exertion, productive cough with increased sputum production. States she noticed fever at home. Does report orthopnea. She states she has pain all over upon obtaining review of systems in the emergency department, patient was found to have elevated BNP and troponin. IV heparin and IV antibiotics initiated along with IV Lasix Review of Systems Constitutional: Constitutional: Reports chills, Reports fever(s) and Reports lethargy Cardiovascular: Cardiovascular: Reports chest pain, Reports dyspnea on exertion and Reports orthopnea Respiratory: Respiratory: Reports cough and Reports dyspnea on exertion Musculoskeletal: Musculoskeletal: Reports arthralgias [facility] Medical History Asthma Atherosclerotic cardiovascular disease Atrial tachycardia COPD (chronic obstructive pulmonary disease) COVID-19 vaccine series completed Diabetes Diabetic toe ulcer Essential hypertension GERD (gastroesophageal reflux disease) Hypertension Left against medical advice Osteomyelitis Family History Mother Hx of CABG Sister CAD (coronary artery disease) Surgical History History of esophagogastroduodenoscopy (EGD) History of toe surgery (09/22/21) Social History Household Members: Family Housing: Apartment Do you presently have visiting nurse or other home services: No Alcohol intake: current Alcohol intake frequency: a few times a week Alcohol type: wine and hard liquor Patient Tobacco Use Status: Current everyday Tobacco user Tobacco use type: Cigarette Cigarette Packs Per Day: 0.5 Cigarettes Per Day: 10.0 Years Smoked: 43 Smoked in Last 30 Days: Yes e-Cigarette/Vaping Use: Never Used Second Hand Smoke Exposure: Yes Use of substances other than those prescribed or required for medical reasons: Yes Advance Directives: No Advance Directives Information Provided: No Advance Directives Date on File: 12/28/20 service: No Current occupational status: disabled Meds Allergies Allergy/AdvReac Type Severity Reaction Status Date / Time Penicillins [PENICILLINS] Allergy Severe RASH Verified 02/14/22 07:59 amoxicillin [AMOXICILLIN] Allergy Intermediate HIVES Verified 02/11/22 15:09 codeine Allergy Itching Verified 04/17/22 12:14 Active Medications: Current Medications Acetaminophen (Acetaminophen 325 Mg Tablet) 650 mg PO Q6H PRN PRN Reason: Pain, Mild (Pain Scale 1-3) Vancomycin HCl 1,000 mg/Vancomycin HCl 750 mg/ Sodium Chloride 535 mls @ 267.5 mls/hr IV ONCE MÓNICA Last Admin: 06/19/22 00:48 Dose: 267.5 mls/hr Melatonin (Melatonin 3 Mg Tablet) 6 mg PO BEDTIME PRN PRN Reason: Insomnia Nitroglycerin (Nitroglycerin 0.4 Mg Tab.Subl) 0.4 mg SUBLINGUAL Q5MX3 PRN PRN Reason: Chest Pain Ondansetron HCl (Ondansetron Hcl 4 Mg/2 Ml Vial) 4 mg IVPUSH Q8H PRN PRN Reason: Nausea and Vomiting Sodium Chloride (0.9 % Sodium Chloride Flush 3 Ml Syringe) 3 ml IVFLUSH QSHIFT [facility] Home Medications Medication Instructions Recorded Confirmed Last Taken Type aspirin 81 mg tablet,delayed 1 tab PO DAILY 12/24/20 06/14/22 1 Week Ago History release ~06/07/22 fluticasone propionate 115 2 puff inhalation BID 12/24/20 06/14/22 1 Week Ago History mcg-salmeterol 21 mcg/actuation ~06/07/22 HFA inhaler (Advair HFA) glipizide 5 mg-metformin 500 mg 2 tab PO BID 12/24/20 06/14/22 1 Week Ago History tablet ~06/07/22 lisinopril 20 1 tab PO DAILY 10/31/21 06/14/22 1 Week Ago History mg-hydrochlorothiazide 12.5 mg ~06/07/22 tablet umeclidinium 62.5 mcg/actuation 1 puff PO DAILY 10/31/21 06/14/22 1 Week Ago History blister powder for inhalation ~06/07/22 (Incruse Ellipta) montelukast 10 mg tablet 1 tab PO BEDTIME 02/13/22 06/14/22 1 Week Ago History ~06/07/22 insulin glargine 100 unit/mL (3 20 unit subcut BEDTIME 03/23/22 06/14/22 1 Week Ago History mL) subcutaneous pen (Lantus ~06/07/22 Solostar U-100 Insulin) atorvastatin 80 mg tablet 80 mg PO BEDTIME 05/01/22 06/14/22 1 Week Ago History ~06/07/22 clopidogrel 75 mg tablet 75 mg PO DAILY 05/01/22 06/14/22 1 Week Ago History ~06/07/22 furosemide 40 mg tablet 40 mg PO DAILY 05/01/22 06/14/22 1 Week Ago History ~06/07/22 gabapentin 300 mg capsule 2 cap PO BEDTIME 05/01/22 06/14/22 1 Week Ago History ~06/07/22 metoprolol succinate 25 mg 25 mg PO DAILY 05/01/22 06/14/22 1 Week Ago History tablet,extended release 24 hr ~06/07/22 Physical Exam Vital Signs and Narrative: Vital Signs: Last Vital Signs Temp 98.6 F 06/18/22 22:08 Pulse 107 H 06/18/22 23:09 Resp 18 06/18/22 23:09 BP 130/71 06/18/22 22:08 Pulse Ox 99 06/18/22 22:08 BMI result Body Mass Index 26.5 Middle-aged female lying in bed in mild distress Regular rate and rhythm, S1-S2 heard bilateral crackles at bases Abdomen soft nontender, no guarding, no rigidity Patient is awake, alert and oriented to self, place, time and person ; no focal motor deficit Psych: Normal mood skin: Skin tear at medial aspect of left lower extremity just above the left ankle, tenderness of the left plantar aspect with well-healed scar ; right foot with edema and serosanguineous drainage, erythema and warmth present bilateral lower extremity pitting edema Results Labs 06/18/22 22:42 06/18/22 22:42 Labs: Laboratory Results - last 24 hr 06/18/22 06/18/22 06/18/22 22:42 22:42 23:18 MCV 71.3 L MCH 20.1 L MCHC 28.2 L RDW 18.7 H Plt Count 266 D MPV TNP Immature Gran % (Auto) 0.8 H Neut % (Auto) 76.3 H Lymph % (Auto) 15.1 L [place] % (Auto) 6.1 Eos % (Auto) 1.1 Baso % (Auto) 0.6 Lymph # (Auto) 1.4 [place] # (Auto) 0.6 Eos # (Auto) 0.1 Baso # (Auto) 0.1 Abs Immat Gran (auto) 0.07 H Absolute Neuts (auto) 6.9 Absolute Nucleated RBC 0.050 H Nucleated RBC % (auto) 0.6 H Smear Tech's Comments VERIFIED PT INR APTT Anion Gap 14 Estim Creat Clear Calc 76.0 Estimated GFR > 60 Random Glucose 156 H Lactic Acid 2.2 H* Calcium 8.0 L Magnesium 1.8 Total Bilirubin 0.5 AST 23 ALT 50 H Alkaline Phosphatase 93 Troponin I High Sens B-Natriuretic Peptide Total Protein 5.6 L Albumin 3.0 L Urine Color Urine Appearance Urine pH Ur Specific [place] Urine Protein Urine Glucose (UA) Urine Ketones Urine Blood Urine Nitrite Ur Leukocyte Esterase Urine RBC Urine WBC Ur Squamous Epith Cells Urine Bacteria Hyaline Casts Urine Opiates Screen Urine Fentanyl Screen Ur Barbiturates Screen Ur Phencyclidine Scrn Ur Amphetamines Screen U Benzodiazepines Scrn Urine Cocaine Screen U Marijuana (THC) Screen Ethyl Alcohol Influenza Type A (PCR) Influenza Type B (PCR) RSV RNA Qual (PCR) SARS-CoV-2 RNA (RT-PCR) 06/18/22 06/18/22 06/18/22 23:18 23:18 23:18 MCV MCH MCHC RDW Plt Count MPV Immature Gran % (Auto) Neut % (Auto) Lymph % (Auto) [place] % (Auto) Eos % (Auto) Baso % (Auto) Lymph # (Auto) [place] # (Auto) Eos # (Auto) Baso # (Auto) Abs Immat Gran (auto) Absolute Neuts (auto) Absolute Nucleated RBC Nucleated RBC % (auto) Smear Tech's Comments PT 13.6 H INR 1.2 H APTT 28.3 D Anion Gap Estim Creat Clear Calc Estimated GFR Random Glucose Lactic Acid Calcium Magnesium Total Bilirubin AST ALT Alkaline Phosphatase Troponin I High Sens 1266.2 H* D B-Natriuretic Peptide 3605 H Total Protein Albumin Urine Color Urine Appearance Urine pH Ur Specific [place] Urine Protein Urine Glucose (UA) Urine Ketones Urine Blood Urine Nitrite Ur Leukocyte Esterase Urine RBC Urine WBC Ur Squamous Epith Cells Urine Bacteria Hyaline Casts Urine Opiates Screen Urine Fentanyl Screen Ur Barbiturates Screen Ur Phencyclidine Scrn Ur Amphetamines Screen U Benzodiazepines Scrn Urine Cocaine Screen U Marijuana (THC) Screen Ethyl Alcohol Influenza Type A (PCR) Influenza Type B (PCR) RSV RNA Qual (PCR) SARS-CoV-2 RNA (RT-PCR) 06/18/22 06/18/22 06/18/22 23:18 23:24 23:39 MCV MCH MCHC RDW Plt Count MPV Immature Gran % (Auto) Neut % (Auto) Lymph % (Auto) [place] % (Auto) Eos % (Auto) Baso % (Auto) Lymph # (Auto) [place] # (Auto) Eos # (Auto) Baso # (Auto) Abs Immat Gran (auto) Absolute Neuts (auto) Absolute Nucleated RBC Nucleated RBC % (auto) Smear Tech's Comments PT INR APTT Anion Gap Estim Creat Clear Calc Estimated GFR Random Glucose Lactic Acid Calcium Magnesium Total Bilirubin AST ALT Alkaline Phosphatase Troponin I High Sens B-Natriuretic Peptide Total Protein Albumin Urine Color Yellow Urine Appearance Cloudy Urine pH 6.0 Ur Specific [place] 1.010 Urine Protein 30 (1+) H Urine Glucose (UA) Negative Urine Ketones Negative Urine Blood Negative Urine Nitrite Negative Ur Leukocyte Esterase Large (3+) H Urine RBC 3-5 H Urine WBC 6-10 H Ur Squamous Epith Cells 11-20 Urine Bacteria 1+ Hyaline Casts 0-2 Urine Opiates Screen Urine Fentanyl Screen Ur Barbiturates Screen Ur Phencyclidine Scrn Ur Amphetamines Screen U Benzodiazepines Scrn Urine Cocaine Screen U Marijuana (THC) Screen Ethyl Alcohol < 10 Influenza Type A (PCR) NEGATIVE Influenza Type B (PCR) NEGATIVE RSV RNA Qual (PCR) NEGATIVE SARS-CoV-2 RNA (RT-PCR) NEGATIVE 06/18/22 23:39 MCV MCH MCHC RDW Plt Count MPV Immature Gran % (Auto) Neut % (Auto) Lymph % (Auto) [place] % (Auto) Eos % (Auto) Baso % (Auto) Lymph # (Auto) [place] # (Auto) Eos # (Auto) Baso # (Auto) Abs Immat Gran (auto) Absolute Neuts (auto) Absolute Nucleated RBC Nucleated RBC % (auto) Smear Tech's Comments PT INR APTT Anion Gap Estim Creat Clear Calc Estimated GFR Random Glucose Lactic Acid Calcium Magnesium Total Bilirubin AST ALT Alkaline Phosphatase Troponin I High Sens B-Natriuretic Peptide Total Protein Albumin Urine Color Urine Appearance Urine pH Ur Specific [place] Urine Protein Urine Glucose (UA) Urine Ketones Urine Blood Urine Nitrite Ur Leukocyte Esterase Urine RBC Urine WBC Ur Squamous Epith Cells Urine Bacteria Hyaline Casts Urine Opiates Screen Not Detected Urine Fentanyl Screen Not Detected Ur Barbiturates Screen Not Detected Ur Phencyclidine Scrn Not Detected Ur Amphetamines Screen Not Detected U Benzodiazepines Scrn Not Detected Urine Cocaine Screen Not Detected U Marijuana (THC) Screen Not Detected Ethyl Alcohol Influenza Type A (PCR) Influenza Type B (PCR) RSV RNA Qual (PCR) SARS-CoV-2 RNA (RT-PCR) Imaging Radiologist's Impressions: Impressions Foot X-Ray 06/18/22 22:55 IMPRESSION: 1. Soft tissue ulceration at the plantar/lateral aspect of the right midfoot. No new findings of osteomyelitis. Diffuse soft tissue swelling. 2. Chronic deformity of the left second toe at the level of the metatarsal head, unchanged as compared to prior. No acute osseous findings. Diffuse soft tissue swelling Foot X-Ray 06/18/22 22:55 IMPRESSION: 1. Soft tissue ulceration at the plantar/lateral aspect of the right midfoot. No new findings of osteomyelitis. Diffuse soft tissue swelling. 2. Chronic deformity of the left second toe at the level of the metatarsal head, unchanged as compared to prior. No acute osseous findings. Diffuse soft tissue swelling Chest X-Ray 06/19/22 00:10 IMPRESSION: 1. Slightly decreased right middle lobe and right lower lobe airspace opacities. 2. Decreased right-sided pleural effusion. 3. New subtle haziness of the left lateral costophrenic angle, raising the possibility of a small amount of pleural fluid. Assessment and Plan (1) Pneumonia: Status: Acute (2) Cellulitis of leg, right: Status: Acute (3) Congestive heart failure: Status: Acute (4) Diabetic foot infection: Status: Acute Plan this is a 51-year-old female with pertinent history of COPD, diastolic heart failure, insulin-dependent diabetes mellitus with neuropathy, essential hypertension who presents to the emergency department with right foot pain and swelling. also has chest pain and dyspnea #. NSTEMI: Initiated IV heparin in the ER, continue. Administered aspirin. Patient is on aspirin and beta-connor at home. Initiating high-intensity statin. Consulted Cardiology, appreciate assistance #. acute on chronic diastolic heart failure: Questionable compliance with Lasix at home. Initiating IV Lasix. Obtaining echo. Strict I's and O's #. diabetic foot infection with right lower extremity cellulitis: Initiating broad-spectrum IV antibiotics. Consulted Wound Care. No evidence of osteomyelitis on CT scan from 5 days ago. Follow blood cultures. #. Right-sided community-acquired pneumonia. On IV antibiotics. Follow blood cultures #. Insulin-dependent diabetes mellitus: Reduce home basal insulin. Initiate Accu-Cheks with sliding scale insulin #. chronic normocytic anemia: Obtaining iron studies. 1 unit PRBC transfusion in the setting of ACS #. essential hypertension: Continue home antihypertensives DVT prophylaxis: IV heparin Full Code Cardiac diet Admit as inpatient and will require two night minimum hospital stay for IV heparin and IV antibiotic Time Spent With Patient Time: Total time managing care of this patient today ____ minutes. Quality Stroke Does the patient have a stroke diagnosis?: No VTE Prior VTE?: Yes VTE Risk Level:: Medical - moderate - high VTE Device Contraindication: Treatment Not Indicated VTE Drug Contraindication: N/A - Med Ordered
--- OUTSIDE RECORDS SUMMARY | 2022-06-19 01:05 | XMS_ITS ---
:1970 Author Care Team Providers Name Role Phone SUNDEEP MATIAS MD Primary Care Provider [phone] Allergies Code Code System Name Reaction Severity [...] 10/30/2019 X[facility], [facility] [address], [place] [id number] (Work Place) 10/30/2019 XR, Foot, 3 or More View [facility] ([facility] [employer]) [address] [place] [address] (Work Place) Results Lab Results Date Name Specimen Result Interpretation Description Value Range Status Address ? 10/30/2019 Culture, ? Specimen toe left great ? Final [facility] Superficial Description Reference Wound Laborator[facility] es: [address], [place] ? ? ? Special none ? Final [facility] Requests Referenc e Laboratori es: [address], [place] ? ? ? gram Stain ? ? Final [facility] ate Reference Laboratori es: [address] [...] ? ? Susceptibl Rifampin ? ? Final [place] state e Reference Laboratori es: [address] [...]
[2022-06-19] MEDS: Atorvastatin Calcium 40 MG TABLET PO ×2 (01:30→22:25)
[2022-06-19] MEDS: Aspirin 325 MG TABLET PO (01:30)
[2022-06-19] MEDS: cefEPime HCl 2 GM in 0.9 % Sodium Chloride 50 ML IV ×3 (01:31→18:42)
[2022-06-19 01:32] LABS: Reflex Lactate? Lactic Acid Added
[2022-06-19 02:02] LABS: ~Lactic Acid-LAB USE ONLY 1.8 mmol/L (0.5-2.0)
[2022-06-19 02:13] LABS: Iron 16 mcg/dL (30-160); Percent Iron Saturation 5 % (15-50); Total Iron Binding Capacity 314 mcg/dL (228-428); Unsaturated Iron Binding 298 ug/dL
--- NOTE | 2022-06-19 03:25 | PC.NURSE ---
Pt currently receiving blood. 7 minutes into the transfusion, pt reported some shortness of breath, feeling like her asthma is acting up. Transfusion was stopped, vitals signs were stable. Spoke with Dr. Montano, pt is asthmatic at baseline and is sensitive to increase in fluids. Per Dr Montano, transfusion can be continued.
--- NOTE | 2022-06-19 04:04 | PC.NURSE ---
Pt still complaining or trouble breathing and chest tightness. Dr Montano aware, is ordering an X-Ray
[2022-06-19 06:18] LABS: Alanine Aminotransferase 45 U/L (0-31); Alkaline Phosphatase 94 U/L (39-117); Anion Gap 13 (12-20); Aspartate Amino Transferase 12 U/L (5-31); Bilirubin Total 1.8 mg/dL (0.0-1.0); Blood Urea Nitrogen 16 mg/dL (9-16); Calcium 7.7 mg/dL (8.4-10.2); Carbon Dioxide 26 mmol/L (22-29); Chloride 104 mmol/L (96-108); Creatinine Clr Calc Pharmacy 57.6; Estimated Glomerular Filt Rate 54; Glucose Random 469 mg/dL (60-115); Potassium 5.2 mmol/L (3.3-5.1); Sodium 138 mmol/L (135-145); Total Protein 5.2 g/dL (6.5-8.0)
[2022-06-19 06:19] LABS: Troponin-I High Sensitivity 655.6 ng/L (<3.5-17.0)
[2022-06-19] MEDS: Insulin Regular, Human 100 UNIT/ML 3 ML VIAL 10 UNIT IVPUSH (06:32)
[2022-06-19 07:17] LABS: Glucose, Whole Blood 384 mg/dL (60-115)
[2022-06-19] MEDS: Furosemide 40 MG/4 ML VIAL IVPUSH ×2 (07:22→18:43)
[2022-06-19] MEDS: Insulin Lispro 100 UNIT/ML 3 ML VIAL SUBCUT ×7 (07:22→22:26)
--- NOTE | 2022-06-19 07:48 | PC.NURSE ---
report taken from venancio lim pt appears to be sleeping on first contact, recently been given prn pain medications. easily awoken to voice, vss. admitted as inpt, awaiting bed assignment. poc glucose checked, medicated per emar. provided w diabetic breakfast tray at bedside. hospitalist calling regarding pt plan this am, overnight attending in ed has left for day. per hospitalist note, plan for iv heparin. iv heparin bolus given in ed, no further heparin orders reflected in emar at this time. wctm for dc needs.
--- NOTE | 2022-06-19 09:50 | PHA.PROG ---
Admission Date/Time: June 19, 2022 00:52 Indication: Diabetic foot infection w/ right lower extermit cellulitis Weight in k.039 kg Adjusted body weight in K.656 kg [place] body weight in K.4 kg Obesity Dosing Indication % IBW: 129% Serum Creatinine - Last 168 Hours 06/18/22 06/19/22 22:42 05:51 Creatinine 0.82 1.08 Estimated CrCl and GFR - Last 168 Hours 06/18/22 06/19/22 22:42 05:51 Estim Creat Clear Calc 76.0 57.6 Estimated GFR > 60 54 Vancomycin Loading Dose: 1750 mg Current Vancomycin Dosing Regimen: 750 mg Q12H Date and Time for next Vancomycin Level to be drawn: 06/20 @ 1200 Pharmacist Comments on Vancomycin Plan: Patient received adequate loading dose vanco 1750 mg on 06/19 @ 0048. Maintenance dose vanco 750 mg Q12H is scheduled to start 06/19 @ 1400. Expected AYC 524 with a trough of 17.4 Trough to be drawn prior to 4th dose Pharmacy will monitor renal function daily Kandice Bruno PharmD Vancomycin dosing will take advantage of [employer] as a clinical decision support tool that uses Bayesian modeling to calculate individual patient's pharmacokinetic parameters and forecast the patient's drug concentration time course with the target goal AUC 24 range of 400 - 600 mg/L/hr.
--- NOTE | 2022-06-19 10:00 | PHA.MEDREC ---
Pharmacy Consult ? Medication Reconciliation Pharmacy has completed the medication reconciliation. Spoke with patient and pharmacy
[2022-06-19] MEDS: Clopidogrel Bisulfate 75 MG TABLET PO (10:03)
[2022-06-19] MEDS: Aspirin Enteric Coated 81 MG TABLET.DR PO (10:03)
--- NOTE | 2022-06-19 10:03 | P.PNIM_ITS ---
Subjective Subjective Date of Service: 06/19/22 Interval History: cc: sob interval history: still sob Physical Exam Vital Signs: Vital Signs: Last Vital Signs Temp 97.8 F 06/19/22 09:50 Pulse 89 06/19/22 09:50 Resp 16 06/19/22 09:50 BP 121/70 06/19/22 09:50 Pulse Ox 97 06/19/22 09:50 O2 Del Method 06/19/22 09:50 BMI result Body Mass Index 26.5 General: lethargic, oriented times 3, ill appearing Resp: diminished bilateral, no accessory muscles used CVS: S1,S2,RRR GI: soft, non tender, non distended Neuro: motor grossly intact Objective Data Active Medications Acetaminophen (Acetaminophen 325 Mg Tablet) 650 mg PO Q6H PRN PRN Reason: Pain, Mild (Pain Scale 1-3) Aspirin (Aspirin Enteric Coated 81 Mg Tablet.) 81 mg PO DAILY [facility] Last Admin: 06/19/22 10:03 Dose: 81 mg Documented By: ECHO Atorvastatin Calcium (Atorvastatin Calcium 40 Mg Tablet) 40 mg PO BEDTIME [facility] Last Admin: 06/19/22 01:30 Dose: 40 mg Documented By: BRITT Clopidogrel Bisulfate (Clopidogrel Bisulfate 75 Mg Tablet) 75 mg PO DAILY [facility] Last Admin: 06/19/22 10:03 Dose: 75 mg Documented By: ECHO Albuterol Sulfate 2.5 mg/ (Ipratropium [place] 0.5 mg) 0 mg INHALE RQ4H WHILE AWAKE [facility] Last Admin: 06/19/22 09:40 Dose: Not Given Documented By: ECHO Non-Admin Reason: See Note Albuterol Sulfate 2.5 mg/ (Ipratropium [place] 0.5 mg) 0 mg INHALE RQ4H WHILE AWAKE PRN PRN Reason: Wheezing Last Admin: 06/19/22 06:29 Dose: 5.5 each Documented By: BRITT Dextrose (Dextrose 50 % 25 Gm/50 Ml Syringe) 25 gm IVPUSH Q15M PRN; Protocol PRN Reason: per Hypoglycemia Standing Ord. Ferrous Sulfate (Ferrous Sulfate 324 Mg Tablet.) 325 mg PO DAILY [facility] Furosemide (Furosemide 40 Mg/4 Ml Vial) 40 mg IVPUSH BID@0900,1800 [facility]; Protocol Glucose (Glucose Gel 15 Gm Gel..Gram.) 15 gm PO Q15M PRN; Protocol PRN Reason: per Hypoglycemia Standing Ord. Cefepime HCl 2 gm/ Sodium (Chloride) 50 mls @ 100 mls/hr IV Q8H [facility] Last Infusion: 06/19/22 07:57 Dose: 0 mls/hr Documented By: ECHO Vancomycin HCl 750 mg/ Sodium (Chloride) 265 mls @ 265 mls/hr IV Q12H [facility] Insulin Glargine (Insulin Glargine,Hum.Rec.Anlog 100 Unit/Ml 10 Ml Vial) 15 unit SUBCUT BEDTIME MÓNICA Insulin Human Lispro (Insulin Lispro 100 Unit/Ml 3 Ml Vial) 0.1 - 10 unit SUBCUT QIDACHS [facility]; Protocol Last Admin: 06/19/22 07:22 Dose: 10 unit Documented By: ECHO Insulin Human Lispro (Insulin Lispro 100 Unit/Ml 3 Ml Vial) 5 unit SUBCUT QIDACHS [facility] Melatonin (Melatonin 3 Mg Tablet) 6 mg PO BEDTIME PRN PRN Reason: Insomnia Metoprolol Succinate (Metoprolol Succinate Er 25 Mg Tab.Er.24h) 25 mg PO DAILY [facility]; Protocol Morphine Sulfate (Morphine Sulfate 4 Mg/Ml Cartridge) 4 mg IVPUSH Q4H PRN; Protocol PRN Reason: Pain, Severe (Pain Scale 7-10) Last Admin: 06/19/22 06:35 Dose: 4 mg Documented By: BRITT Nitroglycerin (Nitroglycerin 0.4 Mg Tab.Subl) 0.4 mg SUBLINGUAL Q5MX3 PRN PRN Reason: Chest Pain Ondansetron HCl (Ondansetron Hcl 4 Mg/2 Ml Vial) 4 mg IVPUSH Q8H PRN PRN Reason: Nausea and Vomiting Pharmacy Consult (Consult Rx Vancomycin Dosing) 1 each MISCELLANE DAILY PRN PRN Reason: Consult order Pharmacy Consult (Consult Rx Perform Med Rec) 1 each MISCELLANE ONCE PRN PRN Reason: Consult order Sodium Chloride (0.9 % Sodium Chloride Flush 3 Ml Syringe) 3 ml IVFLUSH QSHIFT [facility] Last Admin: 06/19/22 07:23 Dose: Not Given Documented By: ECHO Non-Admin Reason: IV Running Labs 06/18/22 22:42 06/19/22 05:51 Labs: Laboratory Results - last 24 hr 06/18/22 06/18/22 06/18/22 22:42 22:42 23:18 MCV 71.3 L MCH 20.1 L MCHC 28.2 L RDW 18.7 H Plt Count 266 D MPV TNP Immature Gran % (Auto) 0.8 H Neut % (Auto) 76.3 H Lymph % (Auto) 15.1 L [place] % (Auto) 6.1 Eos % (Auto) 1.1 Baso % (Auto) 0.6 Lymph # (Auto) 1.4 [place] # (Auto) 0.6 Eos # (Auto) 0.1 Baso # (Auto) 0.1 Abs Immat Gran (auto) 0.07 H Absolute Neuts (auto) 6.9 Absolute Nucleated RBC 0.050 H Nucleated RBC % (auto) 0.6 H Smear Tech's Comments VERIFIED PT INR APTT Anion Gap 14 Estim Creat Clear Calc 76.0 Estimated GFR > 60 POC Glucose Random Glucose 156 H Lactic Acid 2.2 H* Lactic Acid F/U @ 2Hr Calcium 8.0 L Magnesium 1.8 Iron TIBC % Saturation Unsat Iron Binding Total Bilirubin 0.5 AST 23 ALT 50 H Alkaline Phosphatase 93 Troponin I High Sens B-Natriuretic Peptide Total Protein 5.6 L Albumin 3.0 L Urine Color Urine Appearance Urine pH Ur Specific Felt Urine Protein Urine Glucose (UA) Urine Ketones Urine Blood Urine Nitrite Ur Leukocyte Esterase Urine RBC Urine WBC Ur Squamous Epith Cells Urine Bacteria Hyaline Casts Urine Opiates Screen Urine Fentanyl Screen Ur Barbiturates Screen Ur Phencyclidine Scrn Ur Amphetamines Screen U Benzodiazepines Scrn Urine Cocaine Screen U Marijuana (THC) Screen Ethyl Alcohol Influenza Type A (PCR) Influenza Type B (PCR) RSV RNA Qual (PCR) SARS-CoV-2 RNA (RT-PCR) Blood Type Antibody Screen Crossmatch 06/18/22 06/18/22 06/18/22 23:18 23:18 23:18 MCV MCH MCHC RDW Plt Count MPV Immature Gran % (Auto) Neut % (Auto) Lymph % (Auto) [place] % (Auto) Eos % (Auto) Baso % (Auto) Lymph # (Auto) [place] # (Auto) Eos # (Auto) Baso # (Auto) Abs Immat Gran (auto) Absolute Neuts (auto) Absolute Nucleated RBC Nucleated RBC % (auto) Smear Tech's Comments PT 13.6 H INR 1.2 H APTT 28.3 D Anion Gap Estim Creat Clear Calc Estimated GFR POC Glucose Random Glucose Lactic Acid Lactic Acid F/U @ 2Hr Calcium Magnesium Iron TIBC % Saturation Unsat Iron Binding Total Bilirubin AST ALT Alkaline Phosphatase Troponin I High Sens 1266.2 H* D B-Natriuretic Peptide 3605 H Total Protein Albumin Urine Color Urine Appearance Urine pH Ur Specific Felt Urine Protein Urine Glucose (UA) Urine Ketones Urine Blood Urine Nitrite Ur Leukocyte Esterase Urine RBC Urine WBC Ur Squamous Epith Cells Urine Bacteria Hyaline Casts Urine Opiates Screen Urine Fentanyl Screen Ur Barbiturates Screen Ur Phencyclidine Scrn Ur Amphetamines Screen U Benzodiazepines Scrn Urine Cocaine Screen U Marijuana (THC) Screen Ethyl Alcohol Influenza Type A (PCR) Influenza Type B (PCR) RSV RNA Qual (PCR) SARS-CoV-2 RNA (RT-PCR) Blood Type Antibody Screen Crossmatch 06/18/22 06/18/22 06/18/22 23:18 23:24 23:39 MCV MCH MCHC RDW Plt Count MPV Immature Gran % (Auto) Neut % (Auto) Lymph % (Auto) [place] % (Auto) Eos % (Auto) Baso % (Auto) Lymph # (Auto) [place] # (Auto) Eos # (Auto) Baso # (Auto) Abs Immat Gran (auto) Absolute Neuts (auto) Absolute Nucleated RBC Nucleated RBC % (auto) Smear Tech's Comments PT INR APTT Anion Gap Estim Creat Clear Calc Estimated GFR POC Glucose Random Glucose Lactic Acid Lactic Acid F/U @ 2Hr Calcium Magnesium Iron TIBC % Saturation Unsat Iron Binding Total Bilirubin AST ALT Alkaline Phosphatase Troponin I High Sens B-Natriuretic Peptide Total Protein Albumin Urine Color Yellow Urine Appearance Cloudy Urine pH 6.0 Ur Specific Felt 1.010 Urine Protein 30 (1+) H Urine Glucose (UA) Negative Urine Ketones Negative Urine Blood Negative Urine Nitrite Negative Ur Leukocyte Esterase Large (3+) H Urine RBC 3-5 H Urine WBC 6-10 H Ur Squamous Epith Cells 11-20 Urine Bacteria 1+ Hyaline Casts 0-2 Urine Opiates Screen Urine Fentanyl Screen Ur Barbiturates Screen Ur Phencyclidine Scrn Ur Amphetamines Screen U Benzodiazepines Scrn Urine Cocaine Screen U Marijuana (THC) Screen Ethyl Alcohol < 10 Influenza Type A (PCR) NEGATIVE Influenza Type B (PCR) NEGATIVE RSV RNA Qual (PCR) NEGATIVE SARS-CoV-2 RNA (RT-PCR) NEGATIVE Blood Type Antibody Screen Crossmatch 06/18/22 06/19/22 06/19/22 23:39 01:45 01:45 MCV MCH MCHC RDW Plt Count MPV Immature Gran % (Auto) Neut % (Auto) Lymph % (Auto) [place] % (Auto) Eos % (Auto) Baso % (Auto) Lymph # (Auto) [place] # (Auto) Eos # (Auto) Baso # (Auto) Abs Immat Gran (auto) Absolute Neuts (auto) Absolute Nucleated RBC Nucleated RBC % (auto) Smear Tech's Comments PT INR APTT Anion Gap Estim Creat Clear Calc Estimated GFR POC Glucose Random Glucose Lactic Acid Lactic Acid F/U @ 2Hr Calcium Magnesium Iron 16 L TIBC 314 % Saturation 5 L Unsat Iron Binding 298 Total Bilirubin AST ALT Alkaline Phosphatase Troponin I High Sens B-Natriuretic Peptide Total Protein Albumin Urine Color Urine Appearance Urine pH Ur Specific Felt Urine Protein Urine Glucose (UA) Urine Ketones Urine Blood Urine Nitrite Ur Leukocyte Esterase Urine RBC Urine WBC Ur Squamous Epith Cells Urine Bacteria Hyaline Casts Urine Opiates Screen Not Detected Urine Fentanyl Screen Not Detected Ur Barbiturates Screen Not Detected Ur Phencyclidine Scrn Not Detected Ur Amphetamines Screen Not Detected U Benzodiazepines Scrn Not Detected Urine Cocaine Screen Not Detected U Marijuana (THC) Screen Not Detected Ethyl Alcohol Influenza Type A (PCR) Influenza Type B (PCR) RSV RNA Qual (PCR) SARS-CoV-2 RNA (RT-PCR) Blood Type A Positive Antibody Screen NEGATIVE Crossmatch See Detail 06/19/22 06/19/22 06/19/22 01:45 05:51 05:51 MCV MCH MCHC RDW Plt Count MPV Immature Gran % (Auto) Neut % (Auto) Lymph % (Auto) [place] % (Auto) Eos % (Auto) Baso % (Auto) Lymph # (Auto) [place] # (Auto) Eos # (Auto) Baso # (Auto) Abs Immat Gran (auto) Absolute Neuts (auto) Absolute Nucleated RBC Nucleated RBC % (auto) Smear Tech's Comments PT INR APTT Anion Gap 13 Estim Creat Clear Calc 57.6 Estimated GFR 54 POC Glucose Random Glucose 469 H* Lactic Acid Lactic Acid F/U @ 2Hr 1.8 Calcium 7.7 L Magnesium Iron TIBC % Saturation Unsat Iron Binding Total Bilirubin 1.8 H AST 12 ALT 45 H Alkaline Phosphatase 94 Troponin I High Sens 655.6 H* B-Natriuretic Peptide Total Protein 5.2 L Albumin 3.0 L Urine Color Urine Appearance Urine pH Ur Specific Felt Urine Protein Urine Glucose (UA) Urine Ketones Urine Blood Urine Nitrite Ur Leukocyte Esterase Urine RBC Urine WBC Ur Squamous Epith Cells Urine Bacteria Hyaline Casts Urine Opiates Screen Urine Fentanyl Screen Ur Barbiturates Screen Ur Phencyclidine Scrn Ur Amphetamines Screen U Benzodiazepines Scrn Urine Cocaine Screen U Marijuana (THC) Screen Ethyl Alcohol Influenza Type A (PCR) Influenza Type B (PCR) RSV RNA Qual (PCR) SARS-CoV-2 RNA (RT-PCR) Blood Type Antibody Screen Crossmatch 06/19/22 07:06 MCV MCH MCHC RDW Plt Count MPV Immature Gran % (Auto) Neut % (Auto) Lymph % (Auto) [place] % (Auto) Eos % (Auto) Baso % (Auto) Lymph # (Auto) [place] # (Auto) Eos # (Auto) Baso # (Auto) Abs Immat Gran (auto) Absolute Neuts (auto) Absolute Nucleated RBC Nucleated RBC % (auto) Smear Tech's Comments PT INR APTT Anion Gap Estim Creat Clear Calc Estimated GFR POC Glucose 384 H* Random Glucose Lactic Acid Lactic Acid F/U @ 2Hr Calcium Magnesium Iron TIBC % Saturation Unsat Iron Binding Total Bilirubin AST ALT Alkaline Phosphatase Troponin I High Sens B-Natriuretic Peptide Total Protein Albumin Urine Color Urine Appearance Urine pH Ur Specific Felt Urine Protein Urine Glucose (UA) Urine Ketones Urine Blood Urine Nitrite Ur Leukocyte Esterase Urine RBC Urine WBC Ur Squamous Epith Cells Urine Bacteria Hyaline Casts Urine Opiates Screen Urine Fentanyl Screen Ur Barbiturates Screen Ur Phencyclidine Scrn Ur Amphetamines Screen U Benzodiazepines Scrn Urine Cocaine Screen U Marijuana (THC) Screen Ethyl Alcohol Influenza Type A (PCR) Influenza Type B (PCR) RSV RNA Qual (PCR) SARS-CoV-2 RNA (RT-PCR) Blood Type Antibody Screen Crossmatch Assessment and Plan (1) CHF (congestive heart failure): Status: Acute Plan 51-year-old female with pertinent history of COPD, diastolic heart failure, insulin-dependent diabetes mellitus with neuropathy, essential hypertension who presents to the emergency department with right foot pain and swelling. also has chest pain and dyspnea NSTEMI DAPL, statin, iv heparin, cardio eval, metoprolol acute on chronic diastolic chf iv lasix monitor bmp DFU with RLE cellulitis iv vanc, cefepim, id eval, follow up cultures possible pna conitnue abx DM with hyperglycemia insulin, pocs chronic iron defeciency anemia iron suppleement HTN metoprolol copd/moderate persistent asthma singulair, bronchodilators ?DVT prophylaxis: IV heparin ?Full Code Cardiac diet reason for continued hospitalization: iv heparin for nstemi Time Spent With Patient Time: Total time managing care of this patient today ____ minutes. Quality Stroke Does the patient have a stroke diagnosis?: No VTE Prior VTE?: Yes VTE Risk Level:: Medical - moderate - high VTE Device Contraindication: Treatment Not Indicated VTE Drug Contraindication: N/A - Med Ordered
[2022-06-19] MEDS: Metoprolol Succinate ER 25 MG TAB.ER.24H PO (10:05)
--- NOTE | 2022-06-19 10:15 | PC.NURSE ---
LAB AT BEDSIDE TO DRAW PTTHD AND OTHER LABS, PHARMACY CALLED FOR ACCURATE PT WEIGHT FOR HEPARIN PROTOCOL. IV PATENT.
[2022-06-19 10:37] LABS: INTERNATIONAL NORM RATIO 1.2 (0.9-1.1); Prothrombin Time 14.3 SEC (10.0-13.1)
[2022-06-19 10:40] LABS: PTT Heparin Drip 26.7 SEC (53-77.9)
[2022-06-19 10:44] LABS: Hematocrit 33.6 % (37.0-47.0); Hemoglobin 9.8 g/dl (12.0-16.0); Mean Corpuscular HGB Conc 29.2 g/dl (31.0-35.0); Mean Corpuscular Hemoglobin 21.2 pg (27.0-33.0); Mean Corpuscular Volume 72.6 fL (80.0-98.0); NRBC Pct Auto 0.3 /100WBC (0.0-0.2); Platelet Count 278 X10*3/uL (160-400); Red Blood Count 4.63 X10*6/uL (4.20-5.50); Red Cell Distribution Width 20.8 % (11.0-16.0); White Blood Count 8.9 X10*3/uL (4.8-10.8)
[2022-06-19 10:46] LABS: PLT ABN DIST 1
[2022-06-19] MEDS: Heparin Sodium,Porcine/1/2NS 25,000 UNIT/250 ML IV.SOLN 10 UNIT IVCONT (10:53)
[2022-06-19 12:42] LABS: Glucose, Whole Blood 335 mg/dL (60-115)
[2022-06-19] MEDS: vancomycin HCL 750 MG in 0.9 % Sodium Chloride 250 ML 265 MG IV (13:25)
--- NOTE | 2022-06-19 14:52 | PM.CNCAR ---
History of Present Illness History of Present Illness Date of Service: 06/19/22 Chief complaint: Pain Narrative: This is a cardiology consultation regarding elevated troponins. Multiple medical comorbidities including COPD, heart failure, diabetes on insulin, neuropathy, hypertension among others. She apparently came mainly for foot pain and swelling. In addition, she had mentioned about chest pain when she 1st came in but when I questioned her about this, she absolutely denies any chest pain at all. Hence not clear which version is true. Otherwise, she does have a chronic history of smoking and COPD. She states she does get short of breath with activity. She frequently signs herself against medical advice but this time, she is agreeing to stay for treatment. Review of Systems Review of Systems: Yes all other systems are reviewed and are negative Constitutional: Constitutional: Reports as per HPI Eyes: Eyes: Reports as per HPI ENT: Reports as per HPI Cardiovascular: Cardiovascular: Reports as per HPI, Denies acrocyanosis, Denies cool extremities, Denies chest pain, Denies leg edema, Denies lightheadedness, Denies palpitations and Denies dyspnea Respiratory: Respiratory: Reports as per HPI, Reports no additional respiratory complaints and Denies dyspnea Gastrointestinal: Gastrointestinal: Reports as per HPI and Reports no additional gastrointestinal complaints Genitourinary: Genitourinary: Reports as per HPI Musculoskeletal: Musculoskeletal: Reports no additional musculoskeletal complaints and Reports as per HPI Integumentary/Breasts: Skin/Breast: Reports system reviewed and no additional complaints, except as docu Neurologic: Reports system reviewed and no additional complaints, except as documented and Reports as per HPI Psychiatric: Psychiatric: Reports no additional psychiatric complaints and Reports as per HPI Endocrine: Endocrine: Reports no additional endocrine complaints, Reports as per HPI and Denies palpitations Hematologic/Lymphatic: Hematologic/Lymphatic: Reports no additional hematologic/lymphatic complaints and Reports as per HPI Allergic/Immunologic: Allergic/Immunologic: Reports no additional allergic/immunologic complaints and Reports as per HPI [facility] Past Medical History Medical History Asthma Atherosclerotic cardiovascular disease Atrial tachycardia COPD (chronic obstructive pulmonary disease) COVID-19 vaccine series completed Diabetes Diabetic toe ulcer Essential hypertension GERD (gastroesophageal reflux disease) Hypertension Left against medical advice Osteomyelitis Family History Family History Mother Hx of CABG Sister CAD (coronary artery disease) Surgical History Surgical History History of esophagogastroduodenoscopy (EGD) History of toe surgery (09/22/21) Social History Social History Household Members: Family Housing: Apartment Do you presently have visiting nurse or other home services: No Alcohol intake: current Alcohol intake frequency: a few times a week Alcohol type: wine and hard liquor Patient Tobacco Use Status: Current everyday Tobacco user Tobacco use type: Cigarette Cigarette Packs Per Day: 0.5 Cigarettes Per Day: 10.0 Years Smoked: 43 Smoked in Last 30 Days: Yes e-Cigarette/Vaping Use: Never Used Second Hand Smoke Exposure: Yes Use of substances other than those prescribed or required for medical reasons: Yes Advance Directives: No Advance Directives Information Provided: No Advance Directives Date on File: 12/28/20 service: No Current occupational status: disabled Meds Allergies Allergy/AdvReac Type Severity Reaction Status Date / Time Penicillins [PENICILLINS] Allergy Severe RASH Verified 02/14/22 07:59 amoxicillin [AMOXICILLIN] Allergy Intermediate HIVES Verified 02/11/22 15:09 codeine Allergy Itching Verified 04/17/22 12:14 Active Medications: Current Medications Acetaminophen (Acetaminophen 325 Mg Tablet) 650 mg PO Q6H PRN PRN Reason: Pain, Mild (Pain Scale 1-3) Aspirin (Aspirin Enteric Coated 81 Mg Tablet.) 81 mg PO DAILY [facility] Last Admin: 06/19/22 10:03 Dose: 81 mg Atorvastatin Calcium (Atorvastatin Calcium 40 Mg Tablet) 40 mg PO BEDTIME [facility] Last Admin: 06/19/22 01:30 Dose: 40 mg Clopidogrel Bisulfate (Clopidogrel Bisulfate 75 Mg Tablet) 75 mg PO DAILY [facility] Last Admin: 06/19/22 10:03 Dose: 75 mg Albuterol Sulfate 2.5 mg/ (Ipratropium [place] 0.5 mg) 0 mg INHALE RQ4H WHILE AWAKE [facility] Last Admin: 06/19/22 14:31 Dose: 1 each Albuterol Sulfate 2.5 mg/ (Ipratropium [place] 0.5 mg) 0 mg INHALE RQ4H WHILE AWAKE PRN PRN Reason: Wheezing Last Admin: 06/19/22 06:29 Dose: 5.5 each Dextrose (Dextrose 50 % 25 Gm/50 Ml Syringe) 25 gm IVPUSH Q15M PRN; Protocol PRN Reason: per Hypoglycemia Standing Ord. Ferrous Sulfate (Ferrous Sulfate 324 Mg Tablet.Dr) 325 mg PO DAILY M[facility]NICA Furosemide (Furosemide 40 Mg/4 Ml Vial) 40 mg IVPUSH BID@0900,1800 [facility]; Protocol Gabapentin (Gabapentin 300 Mg Capsule) 600 mg PO BEDTIME [place] Glucose (Glucose Gel 15 Gm Gel..Gram.) 15 gm PO Q15M PRN; Protocol PRN Reason: per Hypoglycemia Standing Ord. Heparin Sodium (Porcine) (Heparin Sodium,Porcine 5,000 Unit/Ml Vial) 3,600 unit 40 unit/kg (3600 unit) IVPUSH PROTOCOL BOLUS PRN; Protocol PRN Reason: 40 unit/kg - Heparin Protocol Heparin Sodium (Porcine) (Heparin Sodium,Porcine 5,000 Unit/Ml Vial) 7,200 unit 80 unit/kg (7200 unit) IVPUSH PROTOCOL BOLUS PRN; Protocol PRN Reason: 80 unit/kg - Heparin Protocol Cefepime HCl 2 gm/ Sodium (Chloride) 50 mls @ 100 mls/hr IV Q8H [facility] Last Infusion: 06/19/22 07:57 Dose: Infused Vancomycin HCl 750 mg/ Sodium (Chloride) 265 mls @ 265 mls/hr IV Q12H [facility] Last Admin: 06/19/22 13:25 Dose: 265 mls/hr Heparin Sodium/Sodium Chloride (Heparin Sodium,Porcine/1/2ns) 25,000 unit in 250 mls @ 0 mls/hr IVCONT .Q0M [facility]; Protocol Last Admin: 06/19/22 10:53 Dose: 11.04 units/kg/hr, 10 mls/hr Insulin Glargine (Insulin Glargine,Hum.Rec.Anlog 100 Unit/Ml 10 Ml Vial) 15 unit SUBCUT BEDTIME [facility] Insulin Human Lispro (Insulin Lispro 100 Unit/Ml 3 Ml Vial) 0.1 - 10 unit SUBCUT QIDACHS [facility]; Protocol Last Admin: 06/19/22 13:27 Dose: 10 unit Insulin Human Lispro (Insulin Lispro 100 Unit/Ml 3 Ml Vial) 5 unit SUBCUT QIDACHS [facility] Last Admin: 06/19/22 13:25 Dose: 5 unit Melatonin (Melatonin 3 Mg Tablet) 6 mg PO BEDTIME PRN PRN Reason: Insomnia Metoprolol Succinate (Metoprolol Succinate Er 25 Mg Tab.Er.24h) 25 mg PO DAILY [facility]; Protocol Last Admin: 06/19/22 10:05 Dose: 25 mg Montelukast Sodium (Montelukast Sodium 10 Mg Tablet) 10 mg PO BEDTIME [facility] Morphine Sulfate (Morphine Sulfate 4 Mg/Ml Cartridge) 4 mg IVPUSH Q4H PRN; Protocol PRN Reason: Pain, Severe (Pain Scale 7-10) Last Admin: 06/19/22 10:47 Dose: 4 mg Nitroglycerin (Nitroglycerin 0.4 Mg Tab.Subl) 0.4 mg SUBLINGUAL Q5MX3 PRN PRN Reason: Chest Pain Ondansetron HCl (Ondansetron Hcl 4 Mg/2 Ml Vial) 4 mg IVPUSH Q8H PRN PRN Reason: Nausea and Vomiting Pharmacy Consult (Consult Rx Vancomycin Dosing) 1 each MISCELLANE DAILY PRN PRN Reason: Consult order Pharmacy Consult (Consult Rx Perform Med Rec) 1 each MISCELLANE ONCE PRN PRN Reason: Consult order Sodium Chloride (0.9 % Sodium Chloride Flush 3 Ml Syringe) [facility] Last Admin: 06/19/22 14:47 Dose: Not Given Home Medications Medication Instructions Recorded Confirmed Last Taken Type aspirin 81 mg tablet,delayed 1 tab PO DAILY 12/24/20 06/19/22 1 Week Ago History release ~06/07/22 glipizide 5 mg-metformin 500 mg 2 tab PO BID 12/24/20 06/19/22 1 Week Ago History tablet ~06/07/22 lisinopril 20 1 tab PO DAILY 10/31/21 06/19/22 1 Week Ago History mg-hydrochlorothiazide 12.5 mg ~06/07/22 tablet umeclidinium 62.5 mcg/actuation 1 puff PO DAILY 10/31/21 06/19/22 1 Week Ago History blister powder for inhalation ~06/07/22 (Incruse Ellipta) montelukast 10 mg tablet 1 tab PO BEDTIME 02/13/22 06/19/22 1 Week Ago History ~06/07/22 insulin glargine 100 unit/mL (3 20 unit subcut BEDTIME 03/23/22 06/19/22 1 Week Ago History mL) subcutaneous pen (Lantus ~06/07/22 Solostar U-100 Insulin) atorvastatin 80 mg tablet 80 mg PO BEDTIME 05/01/22 06/19/22 1 Week Ago History ~06/07/22 clopidogrel 75 mg tablet 75 mg PO DAILY 05/01/22 06/19/22 1 Week Ago History ~06/07/22 furosemide 40 mg tablet 40 mg PO DAILY 05/01/22 06/19/22 1 Week Ago History ~06/07/22 gabapentin 300 mg capsule 2 cap PO BEDTIME 05/01/22 06/19/22 1 Week Ago History ~06/07/22 metoprolol succinate 25 mg 25 mg PO DAILY 05/01/22 06/19/22 1 Week Ago History tablet,extended release 24 hr ~06/07/22 albuterol sulfate 2.5 mg/3 mL 1 vial inhalation Q6H PRN Wheezing 06/19/22 06/19/22 Unknown History (0.083 %) solution for nebulization albuterol sulfate 90 mcg/actuation 1 - 2 puff inhalation Q4-6H PRN 06/19/22 06/19/22 Unknown History aerosol inhaler (Ventolin HFA) Wheezing Physical Exam Vital Signs: Vital Signs: Last Vital Signs Temp 97.8 F 06/19/22 09:50 Pulse 94 06/19/22 14:34 Resp 15 06/19/22 14:34 BP 121/70 06/19/22 09:50 Pulse Ox 97 06/19/22 13:46 O2 Del Method 06/19/22 13:46 BMI result Body Mass Index 26.5 Const: General: comfortable and no acute distress Orientation/consciousness: patient oriented x3 HEENT: Other: Unremarkable Head: Yes normal to inspection Neck: Neck: Yes normal visual inspection Chest: Chest palpation & inspection: normal inspection of the chest Resp: Auscultation: rhonchi and diminished lung sounds Cardio: Palpation: normal PMI Heart sounds: S1 normal heart sound present, S2 normal heart sound present, no gallops, no murmurs and no rubs GI: Palpation (GI): Soft to palpation Back/Spine/Pelvis: Other: unremarkable Skin: General skin exam: no rashes or lesions noted Neuro: General: patient oriented x3 Extrem: General: Yes normal to inspection Psych: Mental Status: mental status grossly normal Objective Labs and Meds 06/19/22 10:11 06/19/22 05:51 Lab results: Laboratory Results - last 24 hr 06/18/22 06/18/22 06/18/22 22:42 22:42 23:18 WBC 9.1 RBC 4.32 Hgb 8.7 L Hct 30.8 L MCV 71.3 L MCH 20.1 L MCHC 28.2 L RDW 18.7 H Plt Count 266 D MPV TNP Immature Gran % (Auto) 0.8 H Neut % (Auto) 76.3 H Lymph % (Auto) 15.1 L Bates % (Auto) 6.1 Eos % (Auto) 1.1 Baso % (Auto) 0.6 Lymph # (Auto) 1.4 Bates # (Auto) 0.6 Eos # (Auto) 0.1 Baso # (Auto) 0.1 Abs Immat Gran (auto) 0.07 H Absolute Neuts (auto) 6.9 Absolute Nucleated RBC 0.050 H Nucleated RBC % (auto) 0.6 H Smear Tech's Comments VERIFIED PT INR APTT aPTT Heparin Protocol Sodium 141 Potassium 4.5 Chloride 105 Carbon Dioxide 27 Anion Gap 14 BUN 9 Creatinine 0.82 Estim Creat Clear Calc 76.0 Estimated GFR > 60 POC Glucose Random Glucose 156 H Lactic Acid 2.2 H* Lactic Acid F/U @ 2Hr Calcium 8.0 L Magnesium 1.8 Iron TIBC % Saturation Unsat Iron Binding Total Bilirubin 0.5 AST 23 ALT 50 H Alkaline Phosphatase 93 Troponin I High Sens B-Natriuretic Peptide Total Protein 5.6 L Albumin 3.0 L Urine Color Urine Appearance Urine pH Ur Specific [place] Urine Protein Urine Glucose (UA) Urine Ketones Urine Blood Urine Nitrite Ur Leukocyte Esterase Urine RBC Urine WBC Ur Squamous Epith Cells Urine Bacteria Hyaline Casts Urine Opiates Screen Urine Fentanyl Screen Ur Barbiturates Screen Ur Phencyclidine Scrn Ur Amphetamines Screen U Benzodiazepines Scrn Urine Cocaine Screen U Marijuana (THC) Screen Ethyl Alcohol Influenza Type A (PCR) Influenza Type B (PCR) RSV RNA Qual (PCR) SARS-CoV-2 RNA (RT-PCR) Blood Type Antibody Screen Crossmatch 06/18/22 06/18/22 06/18/22 23:18 23:18 23:18 WBC RBC Hgb Hct MCV MCH MCHC RDW Plt Count MPV Immature Gran % (Auto) Neut % (Auto) Lymph % (Auto) Bates % (Auto) Eos % (Auto) Baso % (Auto) Lymph # (Auto) Bates # (Auto) Eos # (Auto) Baso # (Auto) Abs Immat Gran (auto) Absolute Neuts (auto) Absolute Nucleated RBC Nucleated RBC % (auto) Smear Tech's Comments PT 13.6 H INR 1.2 H APTT 28.3 D aPTT Heparin Protocol Sodium Potassium Chloride Carbon Dioxide Anion Gap BUN Creatinine Estim Creat Clear Calc Estimated GFR POC Glucose Random Glucose Lactic Acid Lactic Acid F/U @ 2Hr Calcium Magnesium Iron TIBC % Saturation Unsat Iron Binding Total Bilirubin AST ALT Alkaline Phosphatase Troponin I High Sens 1266.2 H* D B-Natriuretic Peptide 3605 H Total Protein Albumin Urine Color Urine Appearance Urine pH Ur Specific [place] Urine Protein Urine Glucose (UA) Urine Ketones Urine Blood Urine Nitrite Ur Leukocyte Esterase Urine RBC Urine WBC Ur Squamous Epith Cells Urine Bacteria Hyaline Casts Urine Opiates Screen Urine Fentanyl Screen Ur Barbiturates Screen Ur Phencyclidine Scrn Ur Amphetamines Screen U Benzodiazepines Scrn Urine Cocaine Screen U Marijuana (THC) Screen Ethyl Alcohol Influenza Type A (PCR) Influenza Type B (PCR) RSV RNA Qual (PCR) SARS-CoV-2 RNA (RT-PCR) Blood Type Antibody Screen Crossmatch 06/18/22 06/18/22 06/18/22 23:18 23:24 23:39 WBC RBC Hgb Hct MCV MCH MCHC RDW Plt Count MPV Immature Gran % (Auto) Neut % (Auto) Lymph % (Auto) Bates % (Auto) Eos % (Auto) Baso % (Auto) Lymph # (Auto) [place] # (Auto) Eos # (Auto) Baso # (Auto) Abs Immat Gran (auto) Absolute Neuts (auto) Absolute Nucleated RBC Nucleated RBC % (auto) Smear Tech's Comments PT INR APTT aPTT Heparin Protocol Sodium Potassium Chloride Carbon Dioxide Anion Gap BUN Creatinine Estim Creat Clear Calc Estimated GFR POC Glucose Random Glucose Lactic Acid Lactic Acid F/U @ 2Hr Calcium Magnesium Iron TIBC % Saturation Unsat Iron Binding Total Bilirubin AST ALT Alkaline Phosphatase Troponin I High Sens B-Natriuretic Peptide Total Protein Albumin Urine Color Yellow Urine Appearance Cloudy Urine pH 6.0 Ur Specific [place] 1.010 Urine Protein 30 (1+) H Urine Glucose (UA) Negative Urine Ketones Negative Urine Blood Negative Urine Nitrite Negative Ur Leukocyte Esterase Large (3+) H Urine RBC 3-5 H Urine WBC 6-10 H Ur Squamous Epith Cells 11-20 Urine Bacteria 1+ Hyaline Casts 0-2 Urine Opiates Screen Urine Fentanyl Screen Ur Barbiturates Screen Ur Phencyclidine Scrn Ur Amphetamines Screen U Benzodiazepines Scrn Urine Cocaine Screen U Marijuana (THC) Screen Ethyl Alcohol < 10 Influenza Type A (PCR) NEGATIVE Influenza Type B (PCR) NEGATIVE RSV RNA Qual (PCR) NEGATIVE SARS-CoV-2 RNA (RT-PCR) NEGATIVE Blood Type Antibody Screen Crossmatch 06/18/22 06/19/22 06/19/22 23:39 01:45 01:45 WBC RBC Hgb Hct MCV MCH MCHC RDW Plt Count MPV Immature Gran % (Auto) Neut % (Auto) Lymph % (Auto) Bates % (Auto) Eos % (Auto) Baso % (Auto) Lymph # (Auto) [place] # (Auto) Eos # (Auto) Baso # (Auto) Abs Immat Gran (auto) Absolute Neuts (auto) Absolute Nucleated RBC Nucleated RBC % (auto) Smear Tech's Comments PT INR APTT aPTT Heparin Protocol Sodium Potassium Chloride Carbon Dioxide Anion Gap BUN Creatinine Estim Creat Clear Calc Estimated GFR POC Glucose Random Glucose Lactic Acid Lactic Acid F/U @ 2Hr Calcium Magnesium Iron 16 L TIBC 314 % Saturation 5 L Unsat Iron Binding 298 Total Bilirubin AST ALT Alkaline Phosphatase Troponin I High Sens B-Natriuretic Peptide Total Protein Albumin Urine Color Urine Appearance Urine pH Ur Specific [place] Urine Protein Urine Glucose (UA) Urine Ketones Urine Blood Urine Nitrite Ur Leukocyte Esterase Urine RBC Urine WBC Ur Squamous Epith Cells Urine Bacteria Hyaline Casts Urine Opiates Screen Not Detected Urine Fentanyl Screen Not Detected Ur Barbiturates Screen Not Detected Ur Phencyclidine Scrn Not Detected Ur Amphetamines Screen Not Detected U Benzodiazepines Scrn Not Detected Urine Cocaine Screen Not Detected U Marijuana (THC) Screen Not Detected Ethyl Alcohol Influenza Type A (PCR) Influenza Type B (PCR) RSV RNA Qual (PCR) SARS-CoV-2 RNA (RT-PCR) Blood Type A Positive Antibody Screen NEGATIVE Crossmatch See Detail 06/19/22 06/19/22 06/19/22 01:45 05:51 05:51 WBC RBC Hgb Hct MCV MCH MCHC RDW Plt Count MPV Immature Gran % (Auto) Neut % (Auto) Lymph % (Auto) Bates % (Auto) Eos % (Auto) Baso % (Auto) Lymph # (Auto) [place] # (Auto) Eos # (Auto) Baso # (Auto) Abs Immat Gran (auto) Absolute Neuts (auto) Absolute Nucleated RBC Nucleated RBC % (auto) Smear Tech's Comments PT INR APTT aPTT Heparin Protocol Sodium 138 Potassium 5.2 H Chloride 104 Carbon Dioxide 26 Anion Gap 13 BUN 16 Creatinine 1.08 Estim Creat Clear Calc 57.6 Estimated GFR 54 POC Glucose Random Glucose 469 H* Lactic Acid Lactic Acid F/U @ 2Hr 1.8 Calcium 7.7 L Magnesium Iron TIBC % Saturation Unsat Iron Binding Total Bilirubin 1.8 H AST 12 ALT 45 H Alkaline Phosphatase 94 Troponin I High Sens 655.6 H* B-Natriuretic Peptide Total Protein 5.2 L Albumin 3.0 L Urine Color Urine Appearance Urine pH Ur Specific [place] Urine Protein Urine Glucose (UA) Urine Ketones Urine Blood Urine Nitrite Ur Leukocyte Esterase Urine RBC Urine WBC Ur Squamous Epith Cells Urine Bacteria Hyaline Casts Urine Opiates Screen Urine Fentanyl Screen Ur Barbiturates Screen Ur Phencyclidine Scrn Ur Amphetamines Screen U Benzodiazepines Scrn Urine Cocaine Screen U Marijuana (THC) Screen Ethyl Alcohol Influenza Type A (PCR) Influenza Type B (PCR) RSV RNA Qual (PCR) SARS-CoV-2 RNA (RT-PCR) Blood Type Antibody Screen Crossmatch 06/19/22 06/19/22 06/19/22 07:06 10:11 10:11 WBC 8.9 RBC 4.63 Hgb 9.8 L Hct 33.6 L MCV 72.6 L MCH 21.2 L MCHC 29.2 L RDW 20.8 H Plt Count 278 MPV Not Reportable Immature Gran % (Auto) Neut % (Auto) Lymph % (Auto) [place] % (Auto) Eos % (Auto) Baso % (Auto) Lymph # (Auto) [place] # (Auto) Eos # (Auto) Baso # (Auto) Abs Immat Gran (auto) Absolute Neuts (auto) Absolute Nucleated RBC 0.030 H Nucleated RBC % (auto) 0.3 H Smear Tech's Comments PT 14.3 H INR 1.2 H APTT aPTT Heparin Protocol 26.7 L Sodium Potassium Chloride Carbon Dioxide Anion Gap BUN Creatinine Estim Creat Clear Calc Estimated GFR POC Glucose 384 H* Random Glucose Lactic Acid Lactic Acid F/U @ 2Hr Calcium Magnesium Iron TIBC % Saturation Unsat Iron Binding Total Bilirubin AST ALT Alkaline Phosphatase Troponin I High Sens B-Natriuretic Peptide Total Protein Albumin Urine Color Urine Appearance Urine pH Ur Specific [place] Urine Protein Urine Glucose (UA) Urine Ketones Urine Blood Urine Nitrite Ur Leukocyte Esterase Urine RBC Urine WBC Ur Squamous Epith Cells Urine Bacteria Hyaline Casts Urine Opiates Screen Urine Fentanyl Screen Ur Barbiturates Screen Ur Phencyclidine Scrn Ur Amphetamines Screen U Benzodiazepines Scrn Urine Cocaine Screen U Marijuana (THC) Screen Ethyl Alcohol Influenza Type A (PCR) Influenza Type B (PCR) RSV RNA Qual (PCR) SARS-CoV-2 RNA (RT-PCR) Blood Type Antibody Screen Crossmatch 06/19/22 12:36 WBC RBC Hgb Hct MCV MCH MCHC RDW Plt Count MPV Immature Gran % (Auto) Neut % (Auto) Lymph % (Auto) [place] % (Auto) Eos % (Auto) Baso % (Auto) Lymph # (Auto) [place] # (Auto) Eos # (Auto) Baso # (Auto) Abs Immat Gran (auto) Absolute Neuts (auto) Absolute Nucleated RBC Nucleated RBC % (auto) Smear Tech's Comments PT INR APTT aPTT Heparin Protocol Sodium Potassium Chloride Carbon Dioxide Anion Gap BUN Creatinine Estim Creat Clear Calc Estimated GFR POC Glucose 335 H Random Glucose Lactic Acid Lactic Acid F/U @ 2Hr Calcium Magnesium Iron TIBC % Saturation Unsat Iron Binding Total Bilirubin AST ALT Alkaline Phosphatase Troponin I High Sens B-Natriuretic Peptide Total Protein Albumin Urine Color Urine Appearance Urine pH Ur Specific [place] Urine Protein Urine Glucose (UA) Urine Ketones Urine Blood Urine Nitrite Ur Leukocyte Esterase Urine RBC Urine WBC Ur Squamous Epith Cells Urine Bacteria Hyaline Casts Urine Opiates Screen Urine Fentanyl Screen Ur Barbiturates Screen Ur Phencyclidine Scrn Ur Amphetamines Screen U Benzodiazepines Scrn Urine Cocaine Screen U Marijuana (THC) Screen Ethyl Alcohol Influenza Type A (PCR) Influenza Type B (PCR) RSV RNA Qual (PCR) SARS-CoV-2 RNA (RT-PCR) Blood Type Antibody Screen Crossmatch ECG Interpretation: EKG with sinus tachycardia, 102/Min; cannot exclude old septal infarct and nonspecific ST-T changes. Imaging Radiologist's impression: Impressions Foot X-Ray 06/18/22 22:55 IMPRESSION: 1. Soft tissue ulceration at the plantar/lateral aspect of the right midfoot. No new findings of osteomyelitis. Diffuse soft tissue swelling. 2. Chronic deformity of the left second toe at the level of the metatarsal head, unchanged as compared to prior. No acute osseous findings. Diffuse soft tissue swelling Foot X-Ray 06/18/22 22:55 IMPRESSION: 1. Soft tissue ulceration at the plantar/lateral aspect of the right midfoot. No new findings of osteomyelitis. Diffuse soft tissue swelling. 2. Chronic deformity of the left second toe at the level of the metatarsal head, unchanged as compared to prior. No acute osseous findings. Diffuse soft tissue swelling Chest X-Ray 06/19/22 00:10 IMPRESSION: 1. Slightly decreased right middle lobe and right lower lobe airspace opacities. 2. Decreased right-sided pleural effusion. 3. New subtle haziness of the left lateral costophrenic angle, raising the possibility of a small amount of pleural fluid. Chest X-Ray 06/19/22 04:15 IMPRESSION: * Similar-appearing bibasilar streaky opacities and right midlung opacity. Assessment and Plan (1) Acute non-ST elevation myocardial infarction (NSTEMI): Status: Acute Plan Cardiac troponins reviewed. One thousand two hundred sixty-six followed by 655. Few days ago, it was 273 and 294. Even prior to that, 411. Overall, numerous hospitalizations with elevated troponins but she always signs out against medical advice. Hence could not have a proper evaluation. This time advised her against signing out AMA. She agrees to stay in the hospital for treatment. In this instance, keep her on IV heparin drip. Aspirin. It seems she is also on Plavix. Beta-blockers. Statins. Echocardiogram tomorrow. If she compliant with treatment, then potentially transfer to [facility] for diagnostic catheterization. Will re-evaluate tomorrow. d/w . Time Spent With Patient Time: Total time managing care of this patient today 72 minutes. Procedures Date of Service Date of Service: 06/19/22
--- NOTE | 2022-06-19 16:18 | MHC.CM.PN ---
Lives w/boyfriend and 2 children. 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 She has been having trouble ambulating recently DT her foot issues. Family expressed concerns w/patient compliance and potentially verbalizing desire for AMA. RNCM reminded family of patient rights, however did reinforce that the medical staff does ensure to discuss risks of circumstance with patient should that arise. Patient does not drive, family takes her where she needs to go. At time of D/C plan is home w/family via family and ?[facility] (nursing, PT). CM to follow.
[2022-06-19 17:48] LABS: PTT Heparin Drip 136.6 SEC (53-77.9)
--- NOTE | 2022-06-19 19:23 | PC.NURSE ---
Pt requesting to leave, Dr Montano into discuss plan of care. Pt has agreed to stay until morning.
[2022-06-19 19:43] LABS: PTT Heparin Drip 26.8 SEC (53-77.9)
--- NOTE | 2022-06-19 20:11 | PC.NURSE ---
ptt hd @ 1909 26.8. this rn and detailer furniture resumed heparin gtt @ rate of 7.04. ptt hd repeat order placed for 0155 06/20/2022. dr thompson made aware
[2022-06-19 21:26] LABS: Glucose, Whole Blood 462 mg/dL (60-115)
[2022-06-19 21:35] LABS: Glucose, Whole Blood 371 mg/dL (60-115)
--- NOTE | 2022-06-19 21:35 | PC.NURSE ---
poc 371, dr thompson made aware at this time. per dr thompson give 10 units lispro at this time
[2022-06-19] MEDS: Montelukast Sodium 10 MG TABLET PO (22:25)
[2022-06-19] MEDS: Insulin Glargine,Hum.rec.anlog 100 UNIT/ML 10 ML VIAL 15 UNIT SUBCUT (22:25)
[2022-06-19] MEDS: Gabapentin 300 MG CAPSULE 600 MG PO (22:25)
--- NOTE | 2022-06-19 22:32 | PC.NURSE ---
pt medicated according to aug. arm board placed to reduce interruption of iv infusion. pt tolerating well.
--- NOTE | 2022-06-20 | ECG_ITS ---
Test Reason : cp Blood Pressure : / mmHG Vent. Rate : 081 BPM Atrial Rate : 081 BPM P-R Int : 144 ms QRS Dur : 076 ms QT Int : 406 ms P-R-T Axes : 073 047 109 degrees QTc Int : 471 ms Sinus rhythm with Fusion complexes Low voltage QRS Cannot rule out Anterior infarct (cited on or before 13-JUN-2022) Abnormal ECG When compared with ECG of 18-JUN-2022 22:19, Fusion complexes are now Present Referred By: Gurmeet Gallardo Electronically Signed By:
[2022-06-20] MEDS: 0.9 % Sodium Chloride Flush 3 ML SYRINGE IVFLUSH ×3 (00:28→18:07)
[2022-06-20] MEDS: Morphine Sulfate 4 MG/ML CARTRIDGE IVPUSH ×5 (00:28→20:23)
[2022-06-20] MEDS: cefEPime HCl 2 GM in 0.9 % Sodium Chloride 50 ML IV ×2 (01:50→07:53)
[2022-06-20 02:00] LABS: PTT Heparin Drip 27.9 SEC (53-77.9)
[2022-06-20] MEDS: Heparin Sodium,Porcine 5,000 UNIT/ML VIAL 7200 UNIT IVPUSH ×2 (02:56→16:51)
[2022-06-20] MEDS: vancomycin HCL 750 MG in 0.9 % Sodium Chloride 250 ML 265 MG IV (03:08)
--- NOTE | 2022-06-20 03:16 | PC.NURSE ---
ptt 27.9. this rn called pharmacy to confirm rate for heparin gtt. per pharmacy bolus pt 7200 units then increase rate by 4. rate should be at 11.04. redraw ptt hd @ 0900. order placed. this rn medicated pt according to mar
[2022-06-20] MEDS: Albuterol Sulfate 90 MCG 8 GM INHALER INHALE (05:19)
[2022-06-20 05:22] VITALS: BP 131/84; PULSE 101; RESP 12; TEMP 36.6; O2SAT 99
[2022-06-20 05:52] LABS: Hemoglobin 9.2 g/dl (12.0-16.0); PLT ABN DIST 1
[2022-06-20 05:54] LABS: Hematocrit 32.4 % (37.0-47.0); Mean Corpuscular HGB Conc 28.4 g/dl (31.0-35.0); Mean Corpuscular Hemoglobin 21.1 pg (27.0-33.0); Mean Corpuscular Volume 74.1 fL (80.0-98.0); NRBC Pct Auto 0.5 /100WBC (0.0-0.2); PLT CLUMP 1; Red Blood Count 4.37 X10*6/uL (4.20-5.50); Red Cell Distribution Width 21.6 % (11.0-16.0)
[2022-06-20 05:57] LABS: White Blood Count 12.5 X10*3/uL (4.8-10.8)
[2022-06-20 06:03] LABS: INTERNATIONAL NORM RATIO 1.2 (0.9-1.1); Prothrombin Time 14.3 SEC (10.0-13.1)
[2022-06-20 06:05] LABS: Anion Gap 16 (12-20); Blood Urea Nitrogen 26 mg/dL (9-16); Calcium 8.2 mg/dL (8.4-10.2); Carbon Dioxide 27 mmol/L (22-29); Chloride 100 mmol/L (96-108); Creatinine Clr Calc Pharmacy 58.4; Estimated Glomerular Filt Rate 46; Glucose Fasting 242 mg/dL (60-99); Potassium 4.5 mmol/L (3.3-5.1); Sodium 138 mmol/L (135-145)
[2022-06-20 06:07] VITALS: BP 129/81; PULSE 99; RESP 15; TEMP 36.9; O2SAT 97
[2022-06-20 06:12] LABS: Platelet Count 272 X10*3/uL (160-400)
--- NOTE | 2022-06-20 07:00 | CA_ITS ---
Transthoracic Echocardiogram Patient (Last, First, Middle): Keisha Chadwick, Gender: Female Date of : 1970 Age: 51 Procedure Date: 06/20/2022 Procedure Type: Transthoracic Echocardiogram Location: ER Height: 160.02 cm Weight: 90.27 kg BSA: 1.93 m2 Heart Rate: 102 bpm BP: 131 / 74 mmHg Lithostripper: SB Referring MD: Noah Montano MD Symptoms: dyspnea/NSTEMI Study Quality: Adequate w contrast ECG Rhythm: Tachycardia Conclusions: - Mildly increased left ventricular cavity size. There is mildly increased left ventricular wall thickness. The left ventricular systolic function is severely decreased. The visually estimated ejection fraction is between 20-25%. - The inferior wall, the mid anterior, and mid inferoseptal segments are hypokinetic. - The apex, apical anterior, apical lateral, apical septum, mid anterolateral, mid anteroseptal, and mid inferolateral segments are akinetic. - Mildly increased right ventricular cavity size. There is mildly decreased right ventricular systolic function. - Mobile structure noted in the ascending aorta (image 10) with differentials of clot, plaque vs artifact. Would recommend a CTA aorta to assess further. Findings Procedure Information Contrast agent, definity, is being given per protocol without apparent complications. Left Ventricle Mildly increased left ventricular cavity size. There is mildly increased left ventricular wall thickness. The left ventricular systolic function is severely decreased. The visually estimated ejection fraction is between 20 25%. There is evidence of regional wall motion abnormalities. Abnormal diastolic function is noted. Elevated filling pressures. There is moderate septal asymmetric hypertrophy. Wall Motion Rest Echo Findings The inferior wall, the mid anterior, and mid inferoseptal segments are hypokinetic. The apex, apical anterior, apical lateral, apical septum, mid anterolateral, mid anteroseptal, and mid inferolateral segments are akinetic. Right Ventricle Mildly increased right ventricular cavity size. There is mildly decreased right ventricular systolic function. Atria The left atrium is normal in size. The right atrium is normal in size. Aortic Valve The aortic valve was not well visualized. There is no aortic valve stenosis. There is no aortic valve regurgitation. Mitral Valve Normal mitral valve structure and function. There is no mitral valve regurgitation. There is no mitral valve stenosis. Pulmonic Valve The pulmonic valve was not well visualized. Tricuspid Valve Normal tricuspid valve structure. There is trace tricuspid valve regurgitation. Great Vessels All visible segments of the aorta are normal in size. Mobile structure noted in the ascending aorta (image 10) with differentials of clot, plaque vs artifact. Would recommend a CTA aorta to assess further. Venous The inferior vena cava is dilated and collapses less than 50% with inspiration. Pericardium/Pleural There is no evidence of pericardial effusion. Prior Study Comparison Significant changes compared to prior study dated: 08/24/2021. EF 20-25%, RWMA from ischemic heart disease. ?mobile structure in ascending aorta. Measurements 2D Linear Measurements IVSd: 1.30 0.6-0.9/0.6-1.0 cm LVIDd: 5.58 3.9-5.3/4.2-5.9 cm LVIDd Index: 2.89 2.4-3.2/2.2-3.1 cm/m2 LVIDs: 4.44 2.0-3.6 cm LVPWd: 1.07 0.7-1.1 cm LA Diam: 4.20 2.7-3.8/3.0-4.0 cm LAIDs Index: 2.18 1.5-2.3 cm/m2 LV Mass: 341.87 67-162/88-224 g LV Mass Index: 177.13 43-95/49-115 g/m2 LVOT Diam: 1.90 3.0+(-)1.3 cm 2D Systolic Function EF 4C: 31.70 >55% EF 2C: 27.00 >55% EF BiP: 28.00 >55% Mitral Valve MV Pk E: 1.18 MV PK A: 1.26 MV Decel Time: 136.00 E/A: 0.90 E'Lateral: 12.40 E'Medial: 3.81 E/E' Med: 31.00 E/E' Lat: 9.50 PHT: 40.00 MVA PHT: 5.50 Decel [place]: 8.68 Aortic Valve AoV Pk Bryant: 1.26 AoV Pk Grad: 6.00 CLARA: 1.75 LVOT LVOT Pk Bryant: 0.78 LVOT Mn Bryant: 0.51 LVOT VTI: 0.13 LVOT Pk Grad: 2.00 LVOT Mn Grad: 1.00 LVOT Diam: 1.90 LVOT Area: 2.84 Diastolic Function MV Pk E: 1.18 MV Pk A: 1.26 E/A: 0.90 E'Medial: 3.81 E/E' Med: 31.00 E' Laterial: 12.40 E/E' Lat: 9.50 Right Ventricle TAPSE (mm): 14.20 TVS' Bryant: 11.90 Tricuspid Valve TR Pk Bryant: 2.97 TR Pk Grad: 35.00 RA Press: 8.00 RVSP: 43.00 Great Vessels Aorta Sinus of Valsalva: 2.70 2.0-3.5 cm Ao Asc: 3.10 2.1-3.4 cm Pulmonary Veins Pulm Vein S/D 0.80 Pulmonary Valve PV Pk Bryant: 0.91 Peak PV Grad: 3.00 Updated in Other Vendor System with Status of Final Gurmeet Gallardo MD electronically signed on 06/20/2022 12:37:44 PM with status of Final
[2022-06-20 07:11] LABS: Glucose, Whole Blood 211 mg/dL (60-115)
[2022-06-20] MEDS: Insulin Lispro 100 UNIT/ML 3 ML VIAL SUBCUT ×3 (07:54→13:16)
[2022-06-20] MEDS: Furosemide 40 MG/4 ML VIAL IVPUSH (07:55)
[2022-06-20] MEDS: Clopidogrel Bisulfate 75 MG TABLET PO (07:56)
[2022-06-20] MEDS: Metoprolol Succinate ER 25 MG TAB.ER.24H PO (07:56)
[2022-06-20] MEDS: Ferrous Sulfate 324 MG TABLET.DR 325 MG PO (07:56)
[2022-06-20] MEDS: Aspirin Enteric Coated 81 MG TABLET.DR PO (07:56)
[2022-06-20] MEDS: Acetaminophen 325 MG TABLET 650 MG PO (07:57)
--- NOTE | 2022-06-20 08:08 | PC.NURSE ---
patient a&ox3, heparin drip running at 11.04 as told by previous nurse- as told in report next ptt due at 9am. pt medicated per order, lungs diminished throughout, BLE wounds open to air, LLE redness noted, call pires within reach, will continue to monitor.
--- NOTE | 2022-06-20 09:21 | P.CDIC_ITS ---
CDI Concurrent Query Documentation Clarification: PHYSICIAN'S DOCUMENTATION REQUEST Date of Query: 06/20/22920 Patient Name: Keisha Chadwick Admit Date: 06/19/22 Dear Doctor, A review of the medical record indicates additional documentation may be indicated. Please review below and update the documentation accordingly. Clinical Indicators: Risk Factors/Clinical Indicators/Treatments per MD progress note 06/19/22: DFU with RLE cellulitis iv vanc, cefepim, id eval, follow up cultures Based on the above, could you please provide, in the Progress Notes, further information regarding the ulcer/wound: * For a non-pressure ulcer, please indicate the depth/severity: * Limited to the breakdown of skin * With fat layer exposed * With necrosis of muscle * With necrosis of bone * Other * Unable to determine * *Source: National Pressure Ulcer Advisory Panel (NPUAP) Use of terms such as suspected, likely, concern for, or probable (associated with a specific diagnosis that is being evaluated, monitored, or treated as if it exists) are acceptable and can be coded in the inpatient setting, when documented at the time of discharge. Thank you, Shu Rosario RN Extension: [phone] Please use your independent medical judgment in providing your response. THIS QUERY IS PART OF THE PERMANENT MEDICAL RECORD
--- NOTE | 2022-06-20 09:27 | PC.NURSE ---
pt having bedside echo, pts PTT drawn per order
[2022-06-20 09:45] LABS: PTT Heparin Drip 53.1 SEC (53-77.9)
--- NOTE | 2022-06-20 09:53 | PC.NURSE ---
pt medicated for pain of BLE, Dr. Schrader at beside to speak with patient
--- NOTE | 2022-06-20 10:10 | PC.NURSE ---
upon bringing patient up to the floor at 1010, results of PTT were not available as of yet
[2022-06-20 11:06] LABS: Glucose, Whole Blood 89 mg/dL (60-115)
[2022-06-20 11:09] VITALS: BP 131/86; PULSE 98; RESP 16; TEMP 36.6; O2SAT 96
--- NOTE | 2022-06-20 11:16 | P.PNIM_ITS ---
Subjective Subjective Date of Service: 06/20/22 Interval History: cc: sob interval history: still sob Physical Exam Vital Signs: Vital Signs: Last Vital Signs Temp 97.8 F 06/20/22 11:09 Pulse 98 06/20/22 11:09 Resp 16 06/20/22 11:09 BP 131/86 06/20/22 11:09 Pulse Ox 96 06/20/22 11:09 O2 Del Method 06/20/22 11:09 BMI result Body Mass Index 26.5 Const: General: comfortable and no acute distress Orientation/consc iousness: patient oriented x3 HEENT: Other: Unremarkable Head: Yes normal to inspection Neck: Neck: Yes normal visual inspection Chest: Chest palpation & inspection: normal inspection of the chest Resp: Auscultation: rhonchi and diminished lung sounds Cardio: Palpation: normal PMI Heart sounds: S1 normal heart sound present, S2 normal heart sound present, no gallops, no murmurs and no rubs GI: Palpation (GI): Soft to palpation Back/Spine/Pelvis: Other: unremarkable Skin: General skin exam: no rashes or lesions noted Neuro: General: patient oriented x3 Extrem: General: Yes normal to inspection Psych: Mental Status: mental status grossly normal Objective Data Active Medications Acetaminophen (Acetaminophen 325 Mg Tablet) 650 mg PO Q6H PRN PRN Reason: Pain, Mild (Pain Scale 1-3) Last Admin: 06/20/22 07:57 Dose: 650 mg Documented By: SOTERO Albuterol Sulfate (Albuterol Sulfate (0.083%) 2.5 Mg/3 Ml Vial.Neb) 2.5 mg INHALE Q6H PRN PRN Reason: Wheezing Albuterol Sulfate (Albuterol Sulfate 90 Mcg 8 Gm Inhaler) 1 - 2 puff INHALE RQ4H PRN PRN Reason: Wheezing Last Admin: 06/20/22 05:19 Dose: 2 puff Documented By: PLACIDO Aspirin (Aspirin Enteric Coated 81 Mg Tablet.) 81 mg PO DAILY [facility] Last Admin: 06/20/22 07:56 Dose: 81 mg Documented By: SOTERO Atorvastatin Calcium (Atorvastatin Calcium 40 Mg Tablet) 40 mg PO BEDTIME [facility] Last Admin: 06/19/22 22:25 Dose: 40 mg Documented By: PLACIDO Clopidogrel Bisulfate (Clopidogrel Bisulfate 75 Mg Tablet) 75 mg PO DAILY [facility] Last Admin: 06/20/22 07:56 Dose: 75 mg Documented By: SOTERO Albuterol Sulfate 2.5 mg/ (Ipratropium [place] 0.5 mg) 0 mg INHALE RQ4H WHILE AWAKE [facility] Last Admin: 06/20/22 11:10 Dose: Not Given Documented By: EMILIE Non-Admin Reason: Patient Refused Albuterol Sulfate 2.5 mg/ (Ipratropium [place] 0.5 mg) 0 mg INHALE RQ4H WHILE AWAKE PRN PRN Reason: Wheezing Last Admin: 06/19/22 06:29 Dose: 5.5 each Documented By: BRITT Dextrose (Dextrose 50 % 25 Gm/50 Ml Syringe) 25 gm IVPUSH Q15M PRN; Protocol PRN Reason: per Hypoglycemia Standing Ord. Ferrous Sulfate (Ferrous Sulfate 324 Mg Tablet.Dr) 325 mg PO DAILY [facility] Last Admin: 06/20/22 07:56 Dose: 325 mg Documented By: SOTERO Gabapentin (Gabapentin 300 Mg Capsule) 600 mg PO BEDTIME [facility] Last Admin: 06/19/22 22:25 Dose: 600 mg Documented By: PLACIDO Glucose (Glucose Gel 15 Gm Gel..Gram.) 15 gm PO Q15M PRN; Protocol PRN Reason: per Hypoglycemia Standing Ord. Heparin Sodium (Porcine) (Heparin Sodium,Porcine 5,000 Unit/Ml Vial) 3,600 unit 40 unit/kg (3600 unit) IVPUSH PROTOCOL BOLUS PRN; Protocol PRN Reason: 40 unit/kg - Heparin Protocol Heparin Sodium (Porcine) (Heparin Sodium,Porcine 5,000 Unit/Ml Vial) 7,200 unit 80 unit/kg (7200 unit) IVPUSH PROTOCOL BOLUS PRN; Protocol PRN Reason: 80 unit/kg - Heparin Protocol Last Admin: 06/20/22 02:56 Dose: 7,200 unit Documented By: PLACIDO Cefepime HCl 2 gm/ Sodium (Chloride) 50 mls @ 100 mls/hr IV Q8H [facility] Last Infusion: 06/20/22 08:23 Dose: 0 mls/hr Documented By: SOTERO Vancomycin HCl 750 mg/ Sodium (Chloride) 265 mls @ 265 mls/hr IV Q12H [facility] Last Infusion: 06/20/22 04:18 Dose: 0 mls/hr Documented By: PLACIDO Heparin Sodium/Sodium Chloride (Heparin Sodium,Porcine/1/2ns) 25,000 unit in 250 mls @ 0 mls/hr IVCONT .Q0M [facility]; Protocol Last Titration: 06/20/22 02:53 Dose: 11.04 units/kg/hr, 10 mls/hr Documented By: PLACIDO Co-signed By: JOELLE Insulin Glargine (Insulin Glargine,Hum.Rec.Anlog 100 Unit/Ml 10 Ml Vial) 15 unit SUBCUT BEDTIME [facility] Last Admin: 06/19/22 22:25 Dose: 15 unit Documented By: PLACIDO Insulin Human Lispro (Insulin Lispro 100 Unit/Ml 3 Ml Vial) 0.1 - 10 unit SUBCUT QIDACHS [facility]; Protocol Last Admin: 06/20/22 07:54 Dose: 4 unit Documented By: SOTERO Insulin Human Lispro (Insulin Lispro 100 Unit/Ml 3 Ml Vial) 5 unit SUBCUT QIDAS [facility] Last Admin: 06/20/22 07:55 Dose: 5 unit Documented By: SOTERO Melatonin (Melatonin 3 Mg Tablet) 6 mg PO BEDTIME PRN PRN Reason: Insomnia Metoprolol Succinate (Metoprolol Succinate Er 25 Mg Tab.Er.24h) 25 mg PO DAILY [facility]; Protocol Last Admin: 06/20/22 07:56 Dose: 25 mg Documented By: SOTERO Montelukast Sodium (Montelukast Sodium 10 Mg Tablet) 10 mg PO BEDTIME [facility] Last Admin: 06/19/22 22:25 Dose: 10 mg Documented By: PLACIDO Morphine Sulfate (Morphine Sulfate 4 Mg/Ml Cartridge) 4 mg IVPUSH Q4H PRN; Protocol PRN Reason: Pain, Severe (Pain Scale 7-10) Last Admin: 06/20/22 09:41 Dose: 4 mg Documented By: SOTERO Nitroglycerin (Nitroglycerin 0.4 Mg Tab.Subl) 0.4 mg SUBLINGUAL Q5MX3 PRN PRN Reason: Chest Pain Ondansetron HCl (Ondansetron Hcl 4 Mg/2 Ml Vial) 4 mg IVPUSH Q8H PRN PRN Reason: Nausea and Vomiting Pharmacy Consult (Consult Rx Vancomycin Dosing) 1 each MISCELLANE DAILY PRN PRN Reason: Consult order Pharmacy Consult (Consult Rx Perform Med Rec) 1 each MISCELLANE ONCE PRN PRN Reason: Consult order Sodium Chloride (0.9 % Sodium Chloride Flush 3 Ml Syringe) 3 ml IVFLUSH QSHIFT [facility] Last Admin: 06/20/22 07:56 Dose: 3 ml Documented By: SOTERO Tiotropium [place] (Tiotropium [place] 18 Mcg Cap.W.Dev) 1 puff INHALE RDAILY [facility] Last Admin: 06/20/22 08:02 Dose: Not Given Documented By: EMILIE Non-Admin Reason: Med Not Available Labs 06/20/22 05:37 06/20/22 05:37 Labs: Laboratory Results - last 24 hr 06/19/22 06/19/22 06/19/22 12:36 17:12 18:38 MCV MCH MCHC RDW Plt Count MPV Absolute Nucleated RBC Nucleated RBC % (auto) PT INR aPTT Heparin Protocol 136.6 H* D Anion Gap Estim Creat Clear Calc Estimated GFR POC Glucose 335 H 462 H* Fasting Glucose Calcium 06/19/22 06/19/22 06/20/22 19:09 21:32 01:48 MCV MCH MCHC RDW Plt Count MPV Absolute Nucleated RBC Nucleated RBC % (auto) PT INR aPTT Heparin Protocol 26.8 L D 27.9 L Anion Gap Estim Creat Clear Calc Estimated GFR POC Glucose 371 H* Fasting Glucose Calcium 06/20/22 06/20/22 06/20/22 05:37 05:37 05:37 MCV 74.1 L Cancelled MCH 21.1 L Cancelled MCHC 28.4 L Cancelled RDW 21.6 H Cancelled Plt Count 272 Cancelled MPV Not Reportable Cancelled Absolute Nucleated RBC 0.060 H Cancelled Nucleated RBC % (auto) 0.5 H Cancelled PT INR aPTT Heparin Protocol Anion Gap 16 Estim Creat Clear Calc 58.4 Estimated GFR 46 POC Glucose Fasting Glucose 242 H Calcium 8.2 L D 06/20/22 06/20/22 06/20/22 05:37 07:05 09:15 MCV MCH MCHC RDW Plt Count MPV Absolute Nucleated RBC Nucleated RBC % (auto) PT 14.3 H INR 1.2 H aPTT Heparin Protocol 53.1 D Anion Gap Estim Creat Clear Calc Estimated GFR POC Glucose 211 H Fasting Glucose Calcium 06/20/22 11:02 MCV MCH MCHC RDW Plt Count MPV Absolute Nucleated RBC Nucleated RBC % (auto) PT INR aPTT Heparin Protocol Anion Gap Estim Creat Clear Calc Estimated GFR POC Glucose 89 Fasting Glucose Calcium Microbiology Microbiology Results: Microbiology 06/18/22 Unknown Urine Culture - Final Urine clean catch - Urine jimenez top 06/18/22 23:18 Blood Culture - Preliminary Blood - Venous No growth after 24 hours. 06/18/22 23:13 Blood Culture - Preliminary Blood - Venous No growth after 24 hours. Assessment and Plan (1) CHF (congestive heart failure): Status: Acute Plan 51-year-old female with pertinent history of COPD, diastolic heart failure, insulin-dependent diabetes mellitus with neuropathy, essential hypertension who presents to the emergency department with right foot pain and swelling. also has chest pain and dyspnea NSTEMI DAPL, statin, iv heparin, cardio following, metoprolol acute on chronic diastolic chf diuresed well, holding lasix DFU with RLE cellulitis iv vanc, cefepim, id eval, follow up cultures possible pna continue abx DM with hyperglycemia insulin, pocs chronic iron defeciency anemia iron suppleement HTN metoprolol copd/moderate persistent asthma singulair, bronchodilators ?DVT prophylaxis: IV heparin ?Full Code Cardiac diet reason for continued hospitalization: iv heparin for nstemi Time Spent With Patient Time: Total time managing care of this patient today ____ minutes. Quality Stroke Does the patient have a stroke diagnosis?: No VTE Prior VTE?: Yes VTE Risk Level:: Medical - moderate - high VTE Device Contraindication: Treatment Not Indicated VTE Drug Contraindication: N/A - Med Ordered
--- NOTE | 2022-06-20 11:17 | PM.PNCARD ---
Subjective Subjective Date of Service: 06/20/22 Interval history: Seen examined at bedside. She has been experiencing some indigestion like chest discomfort. Her echocardiography has shown severe LV dysfunction with anterior inferior wall motion abnormalities. There is also a mobile structure noticed in the ascending aorta with differentials of clot versus plaque. She will be getting CT angiogram of the aorta. Physical Exam Vital Signs: Last Vital Signs Temp 97.8 F 06/20/22 11:09 Pulse 98 06/20/22 11:09 Resp 16 06/20/22 11:09 BP 131/86 06/20/22 11:09 Pulse Ox 96 06/20/22 11:09 O2 Del Method 06/20/22 11:09 BMI result Body Mass Index 26.5 GENERAL APPEARANCE: in no acute distress, pleasant. NECK: no carotid bruit, positive jugular venous distention. SKIN: no suspicious lesions, warm and dry. HEART: no murmurs, regular rate and rhythm. LUNGS: clear to auscultation bilaterally. ABDOMEN: soft, nontender. EXTREMITIES: Positive edema. Both feet have open wounds. PERIPHERAL PULSES: equal. Objective Labs and Meds 06/20/22 05:37 06/20/22 05:37 Lab results: Laboratory Results - last 24 hr 06/19/22 06/19/22 06/19/22 12:36 17:12 18:38 WBC RBC Hgb Hct MCV MCH MCHC RDW Plt Count MPV Absolute Nucleated RBC Nucleated RBC % (auto) PT INR aPTT Heparin Protocol 136.6 H* D Sodium Potassium Chloride Carbon Dioxide Anion Gap BUN Creatinine Estim Creat Clear Calc Estimated GFR POC Glucose 335 H 462 H* Fasting Glucose Calcium 06/19/22 06/19/22 06/20/22 19:09 21:32 01:48 WBC RBC Hgb Hct MCV MCH MCHC RDW Plt Count MPV Absolute Nucleated RBC Nucleated RBC % (auto) PT INR aPTT Heparin Protocol 26.8 L D 27.9 L Sodium Potassium Chloride Carbon Dioxide Anion Gap BUN Creatinine Estim Creat Clear Calc Estimated GFR POC Glucose 371 H* Fasting Glucose Calcium 06/20/22 06/20/22 06/20/22 05:37 05:37 05:37 WBC 12.5 H Cancelled RBC 4.37 Cancelled Hgb 9.2 L Cancelled Hct 32.4 L Cancelled MCV 74.1 L Cancelled MCH 21.1 L Cancelled MCHC 28.4 L Cancelled RDW 21.6 H Cancelled Plt Count 272 Cancelled MPV Not Reportable Cancelled Absolute Nucleated RBC 0.060 H Cancelled Nucleated RBC % (auto) 0.5 H Cancelled PT INR aPTT Heparin Protocol Sodium 138 Potassium 4.5 Chloride 100 Carbon Dioxide 27 Anion Gap 16 BUN 26 H D Creatinine 1.23 Estim Creat Clear Calc 58.4 Estimated GFR 46 POC Glucose Fasting Glucose 242 H Calcium 8.2 L D 06/20/22 06/20/22 06/20/22 05:37 07:05 09:15 WBC RBC Hgb Hct MCV MCH MCHC RDW Plt Count MPV Absolute Nucleated RBC Nucleated RBC % (auto) PT 14.3 H INR 1.2 H aPTT Heparin Protocol 53.1 D Sodium Potassium Chloride Carbon Dioxide Anion Gap BUN Creatinine Estim Creat Clear Calc Estimated GFR POC Glucose 211 H Fasting Glucose Calcium 06/20/22 11:02 WBC RBC Hgb Hct MCV MCH MCHC RDW Plt Count MPV Absolute Nucleated RBC Nucleated RBC % (auto) PT INR aPTT Heparin Protocol Sodium Potassium Chloride Carbon Dioxide Anion Gap BUN Creatinine Estim Creat Clear Calc Estimated GFR POC Glucose 89 Fasting Glucose Calcium Progress Note: A&P Assessment and plan (1) CHF (congestive heart failure): Status: Acute (2) Acute non-ST elevation myocardial infarction (NSTEMI): Status: Acute (3) Ischemic cardiomyopathy: Status: Acute Plan 51-year-old female who is presenting with wounds on both feet. 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 She previously has presented with NSTEMI and left AMA. Echocardiography is showing severe LV dysfunction with regional wall motion abnormalities in the LAD and RCA territory. LV also appears to be mildly dilated. Continue heparin drip for now. She will need diagnostic angiography. Her ECHO also has raise concern for mobile mass in the ascending aorta. Sometimes this is artifactual. We will arrange CT angiogram of the aorta to assess that. If in fact she has plaque or clot in the ascending aorta than that increases her stroke risk with cardiac catheterization significantly. In that scenario I will consider conservative management and start with a coronary CTA. Patient was seen with her significant other in the room. I think she does not have very good understanding of the current situation. Her definitely understood gravity of situation and that we will be considering some further workup for her to understand the cause of severe LV dysfunction. In my opinion this is ischemic cardiomyopathy until proven otherwise. Thank you for allowing me to participate in the care of your patient. Please feel free to contact me if you have any questions. Time Spent With Patient Time: Total time managing care of this patient today ____ minutes. Progress Note: Quality Stroke Does the patient have a stroke diagnosis?: No Procedures Date of Service Date of Service: 06/20/22
[2022-06-20 12:01] LABS: Glucose, Whole Blood 131 mg/dL (60-115)
[2022-06-20 12:29] LABS: Vancomycin Random 16.4 mcg/mL (15-20)
[2022-06-20] MEDS: Doxycycline Monohydrate 100 MG CAPSULE PO (13:15)
[2022-06-20] MEDS: Omeprazole 40 MG CAPSULE.DR PO (13:16)
[2022-06-20] MEDS: Heparin Sodium,Porcine/1/2NS 25,000 UNIT/250 ML IV.SOLN 10 UNIT IVCONT (13:25)
[2022-06-20] MEDS: ondansetron HCL 4 MG/2 ML VIAL IVPUSH (14:03)
[2022-06-20 15:14] VITALS: BP 124/67; PULSE 86; RESP 17; TEMP 36.2; O2SAT 94
[2022-06-20 15:30] LABS: Glucose, Whole Blood 100 mg/dL (60-115)
--- NOTE | 2022-06-20 15:54 | P.CNID_ITS ---
History of Present Illness Data of Consult Service Date: 06/20/22 Requesting physician: Jaren Schrader Primary Care Provider: Emilie Dangelo MD HPI Reason for consult: left and right lower leg eruthema She comes in primarily for chest pain but also complains redness last two weeks bilateral lower extremities calves. She has no fever or chills. She has had some chronic ulcers lower extremities Review of Systems Review of Systems: Yes all other systems are reviewed and are negative PMFSH Past Medical History Medical History Asthma Atherosclerotic cardiovascular disease Atrial tachycardia COPD (chronic obstructive pulmonary disease) COVID-19 vaccine series completed Diabetes Diabetic toe ulcer Essential hypertension GERD (gastroesophageal reflux disease) Hypertension Left against medical advice Osteomyelitis Family History Family History Mother Hx of CABG Sister CAD (coronary artery disease) Family history: reviewed and not pertinent Surgical History Surgical History History of esophagogastroduodenoscopy (EGD) History of toe surgery (09/22/21) Social History Social History Household Members: Spouse and Children Housing: Apartment Do you presently have visiting nurse or other home services: No Alcohol intake: current Alcohol intake frequency: a few times a week Alcohol type: wine and hard liquor Patient Tobacco Use Status: Current everyday Tobacco user Tobacco use type: Cigarette Cigarette Packs Per Day: 0.5 Cigarettes Per Day: 10.0 Years Smoked: 43 e-Cigarette/Vaping Use: Never Used Second Hand Smoke Exposure: Yes Advance Directives Date on File: 12/28/20 service: No Current occupational status: disabled Meds Allergies Allergy/AdvReac Type Severity Reaction Status Date / Time Penicillins [PENICILLINS] Allergy Severe RASH Verified 02/14/22 07:59 amoxicillin [AMOXICILLIN] Allergy Intermediate HIVES Verified 02/11/22 15:09 codeine Allergy Itching Verified 04/17/22 12:14 Active Medications: Current Medications Acetaminophen (Acetaminophen 325 Mg Tablet) 650 mg PO Q6H PRN PRN Reason: Pain, Mild (Pain Scale 1-3) Last Admin: 06/20/22 07:57 Dose: 650 mg Albuterol Sulfate (Albuterol Sulfate (0.083%) 2.5 Mg/3 Ml Vial.Chang) 2.5 mg INHALE Q6H PRN PRN Reason: Wheezing Albuterol Sulfate (Albuterol Sulfate 90 Mcg 8 Gm Inhaler) 1 - 2 puff INHALE RQ4H PRN PRN Reason: Wheezing Last Admin: 06/20/22 05:19 Dose: 2 puff Aspirin (Aspirin Enteric Coated 81 Mg Tablet.) 81 mg PO DAILY [facility] Last Admin: 06/20/22 07:56 Dose: 81 mg Atorvastatin Calcium (Atorvastatin Calcium 40 Mg Tablet) 40 mg PO BEDTIME [facility] Last Admin: 06/19/22 22:25 Dose: 40 mg Clopidogrel Bisulfate (Clopidogrel Bisulfate 75 Mg Tablet) 75 mg PO DAILY [facility] Last Admin: 06/20/22 07:56 Dose: 75 mg Albuterol Sulfate 2.5 mg/ (Ipratropium [place] 0.5 mg) 0 mg INHALE RQ4H WHILE AWAKE [facility] Last Admin: 06/20/22 14:31 Dose: Not Given Albuterol Sulfate 2.5 mg/ (Ipratropium [place] 0.5 mg) 0 mg INHALE RQ4H WHILE AWAKE PRN PRN Reason: Wheezing Last Admin: 06/19/22 06:29 Dose: 5.5 each Dextrose (Dextrose 50 % 25 Gm/50 Ml Syringe) 25 gm IVPUSH Q15M PRN; Protocol PRN Reason: per Hypoglycemia Standing Ord. Doxycycline Monohydrate (Doxycycline Monohydrate 100 Mg Capsule) 100 mg PO Q12H [facility] Last Admin: 06/20/22 13:15 Dose: 100 mg Ferrous Sulfate (Ferrous Sulfate 324 Mg Tablet.) 325 mg PO DAILY [facility] Last Admin: 06/20/22 07:56 Dose: 325 mg Gabapentin (Gabapentin 300 Mg Capsule) 600 mg PO BEDTIME [facility] Last Admin: 06/19/22 22:25 Dose: 600 mg Glucose (Glucose Gel 15 Gm Gel..Gram.) 15 gm PO Q15M PRN; Protocol PRN Reason: per Hypoglycemia Standing Ord. Heparin Sodium (Porcine) (Heparin Sodium,Porcine 5,000 Unit/Ml Vial) 3,600 unit 40 unit/kg (3600 unit) IVPUSH PROTOCOL BOLUS PRN; Protocol PRN Reason: 40 unit/kg - Heparin Protocol Heparin Sodium (Porcine) (Heparin Sodium,Porcine 5,000 Unit/Ml Vial) 7,200 unit 80 unit/kg (7200 unit) IVPUSH PROTOCOL BOLUS PRN; Protocol PRN Reason: 80 unit/kg - Heparin Protocol Last Admin: 06/20/22 02:56 Dose: 7,200 unit Heparin Sodium/Sodium Chloride (Heparin Sodium,Porcine/1/2ns) 25,000 unit in 250 mls @ 0 mls/hr IVCONT .Q0M [facility]; Protocol Last Admin: 06/20/22 13:25 Dose: 11.04 units/kg/hr, 10 mls/hr Insulin Glargine (Insulin Glargine,Hum.Rec.Anlog 100 Unit/Ml 10 Ml Vial) 15 unit SUBCUT BEDTIME [facility] Last Admin: 06/19/22 22:25 Dose: 15 unit Insulin Human Lispro (Insulin Lispro 100 Unit/Ml 3 Ml Vial) 0.1 - 10 unit SUBCUT QIDACHS [facility]; Protocol Last Admin: 06/20/22 13:02 Dose: Not Given Insulin Human Lispro (Insulin Lispro 100 Unit/Ml 3 Ml Vial) 5 unit SUBCUT QIDACHS [facility] Last Admin: 06/20/22 13:16 Dose: 5 unit Melatonin (Melatonin 3 Mg Tablet) 6 mg PO BEDTIME PRN PRN Reason: Insomnia Metoprolol Succinate (Metoprolol Succinate Er 25 Mg Tab.Er.24h) 25 mg PO DAILY [facility]; Protocol Last Admin: 06/20/22 07:56 Dose: 25 mg Montelukast Sodium (Montelukast Sodium 10 Mg Tablet) 10 mg PO BEDTIME [facility] Last Admin: 06/19/22 22:25 Dose: 10 mg Morphine Sulfate (Morphine Sulfate 4 Mg/Ml Cartridge) 4 mg IVPUSH Q4H PRN; Protocol PRN Reason: Pain, Severe (Pain Scale 7-10) Last Admin: 06/20/22 14:03 Dose: 4 mg Nitroglycerin (Nitroglycerin 0.4 Mg Tab.Subl) 0.4 mg SUBLINGUAL Q5MX3 PRN PRN Reason: Chest Pain Omeprazole (Omeprazole 40 Mg Capsule.Dr) 40 mg PO DAILY@0630 [facility] Last Admin: 06/20/22 13:16 Dose: 40 mg Ondansetron HCl (Ondansetron Hcl 4 Mg/2 Ml Vial) 4 mg IVPUSH Q8H PRN PRN Reason: Nausea and Vomiting Last Admin: 06/20/22 14:03 Dose: 4 mg Pharmacy Consult (Consult Rx Perform Med Rec) 1 each MISCELLANE ONCE PRN PRN Reason: Consult order Sodium Chloride (0.9 % Sodium Chloride Flush 3 Ml Syringe) 3 ml IVFLUSH QSHIFT [facility] Last Admin: 06/20/22 07:56 Dose: 3 ml Tiotropium [place] (Tiotropium [place] 18 Mcg Cap.W.Dev) 1 puff INHALE RDAILY [facility] Last Admin: 06/20/22 08:02 Dose: Not Given Home Medications Medication Instructions Recorded Confirmed Last Taken Type aspirin 81 mg tablet,delayed 1 tab PO DAILY 12/24/20 06/19/22 1 Week Ago History release ~06/07/22 glipizide 5 mg-metformin 500 mg 2 tab PO BID 12/24/20 06/19/22 1 Week Ago History tablet ~06/07/22 lisinopril 20 1 tab PO DAILY 10/31/21 06/19/22 1 Week Ago History mg-hydrochlorothiazide 12.5 mg ~06/07/22 tablet umeclidinium 62.5 mcg/actuation 1 puff PO DAILY 10/31/21 06/19/22 1 Week Ago History blister powder for inhalation ~06/07/22 (Incruse Ellipta) montelukast 10 mg tablet 1 tab PO BEDTIME 02/13/22 06/19/22 1 Week Ago History ~06/07/22 insulin glargine 100 unit/mL (3 20 unit subcut BEDTIME 03/23/22 06/19/22 1 Week Ago History mL) subcutaneous pen (Lantus ~06/07/22 Solostar U-100 Insulin) atorvastatin 80 mg tablet 80 mg PO BEDTIME 05/01/22 06/19/22 1 Week Ago History ~06/07/22 clopidogrel 75 mg tablet 75 mg PO DAILY 05/01/22 06/19/22 1 Week Ago History ~06/07/22 furosemide 40 mg tablet 40 mg PO DAILY 05/01/22 06/19/22 1 Week Ago History ~06/07/22 gabapentin 300 mg capsule 2 cap PO BEDTIME 05/01/22 06/19/22 1 Week Ago History ~06/07/22 metoprolol succinate 25 mg 25 mg PO DAILY 05/01/22 06/19/22 1 Week Ago History tablet,extended release 24 hr ~06/07/22 albuterol sulfate 2.5 mg/3 mL 1 vial inhalation Q6H PRN Wheezing 06/19/22 06/19/22 Unknown History (0.083 %) solution for nebulization albuterol sulfate 90 mcg/actuation 1 - 2 puff inhalation Q4-6H PRN 06/19/22 06/19/22 Unknown History aerosol inhaler (Ventolin HFA) Wheezing Physical Exam Vital Signs: Vital Signs: Last Vital Signs Temp 97.2 F 06/20/22 15:14 Pulse 86 06/20/22 15:14 Resp 17 06/20/22 15:14 BP 124/67 06/20/22 15:14 Pulse Ox 94 06/20/22 15:14 O2 Del Method 06/20/22 15:14 BMI result Body Mass Index 26.5 Const: General: cooperative HEENT: Head: Yes normal to inspection Face and sinus: Yes normal facial exam Mouth: Normal oral and palatal mucosa present Teeth and gingiva: dentition normal Eyes: General: appearance normal, both eyes and all related structures Pupils: Equal, round and reactive pupils present Resp: Effort & Inspection: normal respiratory effort Cardio: Rate: regular rate Rhythm: regular rhythm GI: Palpation (GI): Soft to palpation and nontender : General: Yes no CVA tenderness Back/Spine/Pelvis: Back: no CVA tenderness Skin: General skin exam: no rashes or lesions noted Neuro: General: moves all extremities Cranial nerves: Yes Equal, round and reactive pupils present Extrem: Other: left more than right hazy chronic pinkness calves with lateral cribiform 3 cm area lateral left she mentioned due to heating pad Psych: Appearance: grossly normal Results Labs 06/20/22 05:37 06/20/22 05:37 Labs: Short CBC 06/20/22 06/20/22 Range/Units 05:37 05:37 WBC 12.5 H Cancelled (4.8-10.8) X10*3/uL Hgb 9.2 L Cancelled (12.0-16.0) g/dl Hct 32.4 L Cancelled (37.0-47.0) % Plt Count 272 Cancelled (160-400) X10*3/uL BMP 06/20/22 05:37 Sodium 138 Potassium 4.5 Chloride 100 Carbon Dioxide 27 BUN 26 H D Creatinine 1.23 Calcium 8.2 L D Microbiology Microbiology Results: Microbiology 06/18/22 Unknown Urine clean catch - Urine jimenez top Urine Culture - Final 06/18/22 23:18 Blood - Venous Blood Culture - Preliminary No growth after 24 hours. 06/18/22 23:13 Blood - Venous Blood Culture - Preliminary No growth after 24 hours. Assessment and Plan (1) Cellulitis of foot, left: Status: Acute resolving cellulitis,possible staph and/or strep Plan Would stop IV antibiotics and give po Doxycycline for 10 days as erythema areas chronic and chest pain/[place] primary reason hospitalization. Time Spent With Patient Time: Total time managing care of this patient today ____ minutes.
--- NOTE | 2022-06-20 17:38 | HO.WOUNDCONS ---
History of Present Illness Data of Consult Service Date: 06/20/22 Primary Care Provider: Emilie Dangelo MD HPI Patient is a 51-year-old female with multiple medical problems currently in the hospital getting worked up for cardiac events. Here she complains of pain in her right plantar foot where her previous wounds have been and some drainage. She has a new wound on her left plantar foot which looks older in healed and she has a burn to her left lateral leg which is superficial. She is being considered and worked up for cardiac angiogram which would have to be done at [facility]. [facility] Medical History Asthma Atherosclerotic cardiovascular disease Atrial tachycardia COPD (chronic obstructive pulmonary disease) COVID-19 vaccine series completed Diabetes Diabetic toe ulcer Essential hypertension GERD (gastroesophageal reflux disease) Hypertension Left against medical advice Osteomyelitis Family History Mother Hx of CABG Sister CAD (coronary artery disease) Surgical History History of esophagogastroduodenoscopy (EGD) History of toe surgery (09/22/21) Social History Household Members: Spouse and Children Housing: Apartment Do you presently have visiting nurse or other home services: No Alcohol intake: current Alcohol intake frequency: a few times a week Alcohol type: wine and hard liquor Patient Tobacco Use Status: Current everyday Tobacco user Tobacco use type: Cigarette Cigarette Packs Per Day: 0.5 Cigarettes Per Day: 10.0 Years Smoked: 43 e-Cigarette/Vaping Use: Never Used Second Hand Smoke Exposure: Yes Advance Directives Date on File: 12/28/20 service: No Current occupational status: disabled Meds Allergies Allergy/AdvReac Type Severity Reaction Status Date / Time Penicillins [PENICILLINS] Allergy Severe RASH Verified 02/14/22 07:59 amoxicillin [AMOXICILLIN] Allergy Intermediate HIVES Verified 02/11/22 15:09 codeine Allergy Itching Verified 04/17/22 12:14 Active Medications: Current Medications Acetaminophen (Acetaminophen 325 Mg Tablet) 650 mg PO Q6H PRN PRN Reason: Pain, Mild (Pain Scale 1-3) Last Admin: 06/20/22 07:57 Dose: 650 mg Albuterol Sulfate (Albuterol Sulfate (0.083%) 2.5 Mg/3 Ml Vial.Chang) 2.5 mg INHALE Q6H PRN PRN Reason: Wheezing Albuterol Sulfate (Albuterol Sulfate 90 Mcg 8 Gm Inhaler) 1 - 2 puff INHALE RQ4H PRN PRN Reason: Wheezing Last Admin: 06/20/22 05:19 Dose: 2 puff Aspirin (Aspirin Enteric Coated 81 Mg Tablet.) 81 mg PO DAILY [facility] Last Admin: 06/20/22 07:56 Dose: 81 mg Atorvastatin Calcium (Atorvastatin Calcium 40 Mg Tablet) 40 mg PO BEDTIME [facility] Last Admin: 06/19/22 22:25 Dose: 40 mg Clopidogrel Bisulfate (Clopidogrel Bisulfate 75 Mg Tablet) 75 mg PO DAILY [facility] Last Admin: 06/20/22 07:56 Dose: 75 mg Albuterol Sulfate 2.5 mg/ (Ipratropium [place] 0.5 mg) 0 mg INHALE RQ4H WHILE AWAKE [facility] Last Admin: 06/20/22 14:31 Dose: Not Given Albuterol Sulfate 2.5 mg/ (Ipratropium [place] 0.5 mg) 0 mg INHALE RQ4H WHILE AWAKE PRN PRN Reason: Wheezing Last Admin: 06/19/22 06:29 Dose: 5.5 each Dextrose (Dextrose 50 % 25 Gm/50 Ml Syringe) 25 gm IVPUSH Q15M PRN; Protocol PRN Reason: per Hypoglycemia Standing Ord. Doxycycline Monohydrate (Doxycycline Monohydrate 100 Mg Capsule) 100 mg PO Q12H [facility] Last Admin: 06/20/22 13:15 Dose: 100 mg Ferrous Sulfate (Ferrous Sulfate 324 Mg Tablet.) 325 mg PO DAILY [facility] Last Admin: 06/20/22 07:56 Dose: 325 mg Gabapentin (Gabapentin 300 Mg Capsule) 600 mg PO BEDTIME [facility] Last Admin: 06/19/22 22:25 Dose: 600 mg Glucose (Glucose Gel 15 Gm Gel..Gram.) 15 gm PO Q15M PRN; Protocol PRN Reason: per Hypoglycemia Standing Ord. Heparin Sodium (Porcine) (Heparin Sodium,Porcine 5,000 Unit/Ml Vial) 3,600 unit 40 unit/kg (3600 unit) IVPUSH PROTOCOL BOLUS PRN; Protocol PRN Reason: 40 unit/kg - Heparin Protocol Heparin Sodium (Porcine) (Heparin Sodium,Porcine 5,000 Unit/Ml Vial) 7,200 unit 80 unit/kg (7200 unit) IVPUSH PROTOCOL BOLUS PRN; Protocol PRN Reason: 80 unit/kg - Heparin Protocol Last Admin: 06/20/22 16:51 Dose: 7,200 unit Heparin Sodium/Sodium Chloride (Heparin Sodium,Porcine/1/2ns) 25,000 unit in 250 mls @ 0 mls/hr IVCONT .Q0M [facility]; Protocol Last Titration: 06/20/22 16:46 Dose: 15.04 units/kg/hr, 13.63 mls/hr Insulin Glargine (Insulin Glargine,Hum.Rec.Anlog 100 Unit/Ml 10 Ml Vial) 15 unit SUBCUT BEDTIME [facility] Last Admin: 06/19/22 22:25 Dose: 15 unit Insulin Human Lispro (Insulin Lispro 100 Unit/Ml 3 Ml Vial) 0.1 - 10 unit SUBCUT QIDACHS [facility]; Protocol Last Admin: 06/20/22 13:02 Dose: Not Given Insulin Human Lispro (Insulin Lispro 100 Unit/Ml 3 Ml Vial) 5 unit SUBCUT QIDACHS [facility] Last Admin: 06/20/22 13:16 Dose: 5 unit Melatonin (Melatonin 3 Mg Tablet) 6 mg PO BEDTIME PRN PRN Reason: Insomnia Metoprolol Succinate (Metoprolol Succinate Er 25 Mg Tab.Er.24h) 25 mg PO DAILY [facility]; Protocol Last Admin: 06/20/22 07:56 Dose: 25 mg Montelukast Sodium (Montelukast Sodium 10 Mg Tablet) 10 mg PO BEDTIME [facility] Last Admin: 06/19/22 22:25 Dose: 10 mg Morphine Sulfate (Morphine Sulfate 4 Mg/Ml Cartridge) 4 mg IVPUSH Q4H PRN; Protocol PRN Reason: Pain, Severe (Pain Scale 7-10) Last Admin: 06/20/22 14:03 Dose: 4 mg Nitroglycerin (Nitroglycerin 0.4 Mg Tab.Subl) 0.4 mg SUBLINGUAL Q5MX3 PRN PRN Reason: Chest Pain Omeprazole (Omeprazole 40 Mg Capsule.Dr) 40 mg PO DAILY@0630 [facility] Last Admin: 06/20/22 13:16 Dose: 40 mg Ondansetron HCl (Ondansetron Hcl 4 Mg/2 Ml Vial) 4 mg IVPUSH Q8H PRN PRN Reason: Nausea and Vomiting Last Admin: 06/20/22 14:03 Dose: 4 mg Pharmacy Consult (Consult Rx Perform Med Rec) 1 each MISCELLANE ONCE PRN PRN Reason: Consult order Sodium Chloride (0.9 % Sodium Chloride Flush 3 Ml Syringe) 3 ml IVFLUSH QSHIFT [facility] Last Admin: 06/20/22 07:56 Dose: 3 ml Tiotropium [place] (Tiotropium [place] 18 Mcg Cap.W.Dev) 1 puff INHALE RDAILY [facility] Last Admin: 06/20/22 08:02 Dose: Not Given Home Medications Medication Instructions Recorded Confirmed Last Taken Type aspirin 81 mg tablet,delayed 1 tab PO DAILY 12/24/20 06/19/22 1 Week Ago History release ~06/07/22 glipizide 5 mg-metformin 500 mg 2 tab PO BID 12/24/20 06/19/22 1 Week Ago History tablet ~06/07/22 lisinopril 20 1 tab PO DAILY 10/31/21 06/19/22 1 Week Ago History mg-hydrochlorothiazide 12.5 mg ~06/07/22 tablet umeclidinium 62.5 mcg/actuation 1 puff PO DAILY 10/31/21 06/19/22 1 Week Ago History blister powder for inhalation ~06/07/22 (Incruse Ellipta) montelukast 10 mg tablet 1 tab PO BEDTIME 02/13/22 06/19/22 1 Week Ago History ~06/07/22 insulin glargine 100 unit/mL (3 20 unit subcut BEDTIME 03/23/22 06/19/22 1 Week Ago History mL) subcutaneous pen (Lantus ~06/07/22 Solostar U-100 Insulin) atorvastatin 80 mg tablet 80 mg PO BEDTIME 05/01/22 06/19/22 1 Week Ago History ~06/07/22 clopidogrel 75 mg tablet 75 mg PO DAILY 05/01/22 06/19/22 1 Week Ago History ~06/07/22 furosemide 40 mg tablet 40 mg PO DAILY 05/01/22 06/19/22 1 Week Ago History ~06/07/22 gabapentin 300 mg capsule 2 cap PO BEDTIME 05/01/22 06/19/22 1 Week Ago History ~06/07/22 metoprolol succinate 25 mg 25 mg PO DAILY 05/01/22 06/19/22 1 Week Ago History tablet,extended release 24 hr ~06/07/22 albuterol sulfate 2.5 mg/3 mL 1 vial inhalation Q6H PRN Wheezing 06/19/22 06/19/22 Unknown History (0.083 %) solution for nebulization albuterol sulfate 90 mcg/actuation 1 - 2 puff inhalation Q4-6H PRN 06/19/22 06/19/22 Unknown History aerosol inhaler (Ventolin HFA) Wheezing Physical Exam Vital Signs and Narrative: Vital Signs: Last Vital Signs Temp 97.2 F 06/20/22 15:14 Pulse 86 06/20/22 15:14 Resp 17 06/20/22 15:14 BP 124/67 06/20/22 15:14 Pulse Ox 94 06/20/22 15:14 O2 Del Method 06/20/22 15:14 BMI result Body Mass Index 26.5 Skin: Other: Right plantar foot looks really good in regards to just a small crack in the skin open wound but not very much of anything draining. With deep palpation she is tender here which is a little more concerning for whether there may be some deeper fluid collection or even abscess. The left plantar foot along the medial aspect also has a wound but it looks like it is covered with epithelium even though there was a bit of a defect. Left lateral lower leg there is about a 4 x 4 cm partial-thickness open wound which looks clean and healthy Bilateral legs look good without any significant cellulitis at this point and some baseline edema Results Labs 06/20/22 05:37 06/20/22 05:37 Labs: Laboratory Results - last 24 hr 06/19/22 06/19/22 06/19/22 17:12 18:38 19:09 MCV MCH MCHC RDW Plt Count MPV Absolute Nucleated RBC Nucleated RBC % (auto) PT INR aPTT Heparin Protocol 136.6 H* D 26.8 L D Anion Gap Estim Creat Clear Calc Estimated GFR POC Glucose 462 H* Fasting Glucose Calcium Random Vancomycin 06/19/22 06/20/22 06/20/22 21:32 01:48 05:37 MCV MCH MCHC RDW Plt Count MPV Absolute Nucleated RBC Nucleated RBC % (auto) PT INR aPTT Heparin Protocol 27.9 L Anion Gap 16 Estim Creat Clear Calc 58.4 Estimated GFR 46 POC Glucose 371 H* Fasting Glucose 242 H Calcium 8.2 L D Random Vancomycin 06/20/22 06/20/22 06/20/22 05:37 05:37 05:37 MCV 74.1 L Cancelled MCH 21.1 L Cancelled MCHC 28.4 L Cancelled RDW 21.6 H Cancelled Plt Count 272 Cancelled MPV Not Reportable Cancelled Absolute Nucleated RBC 0.060 H Cancelled Nucleated RBC % (auto) 0.5 H Cancelled PT 14.3 H INR 1.2 H aPTT Heparin Protocol Anion Gap Estim Creat Clear Calc Estimated GFR POC Glucose Fasting Glucose Calcium Random Vancomycin 06/20/22 06/20/22 06/20/22 07:05 09:15 11:02 MCV MCH MCHC RDW Plt Count MPV Absolute Nucleated RBC Nucleated RBC % (auto) PT INR aPTT Heparin Protocol 53.1 D Anion Gap Estim Creat Clear Calc Estimated GFR POC Glucose 211 H 89 Fasting Glucose Calcium Random Vancomycin 06/20/22 06/20/22 06/20/22 11:57 12:03 15:17 MCV MCH MCHC RDW Plt Count MPV Absolute Nucleated RBC Nucleated RBC % (auto) PT INR aPTT Heparin Protocol Anion Gap Estim Creat Clear Calc Estimated GFR POC Glucose 131 H 100 Fasting Glucose Calcium Random Vancomycin 16.4 06/20/22 15:33 MCV MCH MCHC RDW Plt Count MPV Absolute Nucleated RBC Nucleated RBC % (auto) PT INR aPTT Heparin Protocol 26.0 L D Anion Gap Estim Creat Clear Calc Estimated GFR POC Glucose Fasting Glucose Calcium Random Vancomycin Assessment and Plan (1) Diabetic foot infection: Status: Acute Plan Patient is a 51-year-old female well known to us from the wound care facility who has right plantar foot diabetic foot wound which looks very much improved. To little concerning that the area is tender to palpation would recommend maybe an ultrasound to determine whether there is any deep fluid collection that may need to be drained. If this is not amenable then consider CT scan. The left foot wounds look fine with epithelial covering so no dressings etc. needed here. The left lateral leg wound would benefit with little bacitracin ointment and covering to protect and heal. Consider bilateral compression socks to decrease edema. Patient is not always compliant. Priority however is with her medical issues and her cardiac workup. She understands and agrees with the above plan and says she will cooperate Time Spent With Patient Time: Total time managing care of this patient today ____ minutes.
[2022-06-20] MEDS: iohexoL 350 MG/ML 100 ML INFUS..BTL IV (18:39)
[2022-06-20 19:26] VITALS: BP 116/73; PULSE 88; RESP 17; TEMP 36.4; O2SAT 96
[2022-06-20 19:33] LABS: Glucose, Whole Blood 106 mg/dL (60-115)
[2022-06-20 19:58] VITALS: BMI 32.6
--- NOTE | 2022-06-20 19:59 | PM.EVENT ---
Event Note Date of Service: 06/20/22 Event Note: chest CT shows pulmonary infiltrates that appear more like infiltrates associated with covid and increased in size of pleural effusions as well as increase in the size of the heart. Time Spent With Patient Time: Total time managing care of this patient today ____ minutes.
[2022-06-20] MEDS: Atorvastatin Calcium 40 MG TABLET PO (20:21)
[2022-06-20] MEDS: Montelukast Sodium 10 MG TABLET PO (20:21)
[2022-06-20] MEDS: Gabapentin 300 MG CAPSULE 600 MG PO (20:22)
[2022-06-20] MEDS: Insulin Glargine,Hum.rec.anlog 100 UNIT/ML 10 ML VIAL 15 UNIT SUBCUT (20:22)
[2022-06-20 23:40] VITALS: BP 103/65; PULSE 85; RESP 18; TEMP 37.1; O2SAT 96
[2022-06-20 23:40] LABS: PTT Heparin Drip 53.4 SEC (53-77.9)
[2022-06-21] MEDS: Doxycycline Monohydrate 100 MG CAPSULE PO (00:27)
--- NOTE | 2022-06-21 00:38 | PC.NURSE ---
ptt hd at 2311 is 53.4 no change in drip. next ptt-hd at 0500on 06/21
[2022-06-21] MEDS: Morphine Sulfate 4 MG/ML CARTRIDGE IVPUSH ×2 (02:02→09:37)
[2022-06-21 03:18] VITALS: BP 110/65; PULSE 91; RESP 18; TEMP 36.8; O2SAT 98
[2022-06-21] MEDS: Omeprazole 40 MG CAPSULE.DR PO (05:25)
[2022-06-21 06:59] VITALS: BP 131/81; PULSE 90; RESP 14; TEMP 36.9; O2SAT 93
--- NOTE | 2022-06-21 06:59 | PC.NURSE ---
0700 ptt-hd results are still not available it has been drawn but not ready yet its 0500 ordered for
[2022-06-21 07:04] LABS: Glucose, Whole Blood 97 mg/dL (60-115)
[2022-06-21 07:06] LABS: NRBC Pct Auto 0.3 /100WBC (0.0-0.2)
[2022-06-21 07:07] LABS: Red Blood Count 4.27 X10*6/uL (4.20-5.50)
[2022-06-21 07:08] LABS: Hemoglobin 9.2 g/dl (12.0-16.0); Mean Corpuscular HGB Conc 29.7 g/dl (31.0-35.0); Mean Corpuscular Hemoglobin 21.5 pg (27.0-33.0); Mean Corpuscular Volume 72.6 fL (80.0-98.0); PLT CLUMP 1; Red Cell Distribution Width 21.9 % (11.0-16.0)
[2022-06-21 07:11] LABS: Anion Gap 14 (12-20); Blood Urea Nitrogen 22 mg/dL (9-16); Calcium 8.1 mg/dL (8.4-10.2); Carbon Dioxide 26 mmol/L (22-29); Chloride 105 mmol/L (96-108); Creatinine Clr Calc Pharmacy 75.7; Estimated Glomerular Filt Rate > 60; Glucose Fasting 91 mg/dL (60-99); Potassium 4.4 mmol/L (3.3-5.1); Sodium 141 mmol/L (135-145)
[2022-06-21 07:15] LABS: PLT ABN DIST 1
[2022-06-21 07:16] LABS: PTT Heparin Drip 64.4 SEC (53-77.9)
[2022-06-21 07:29] LABS: White Blood Count 9.2 X10*3/uL (4.8-10.8)
[2022-06-21 07:30] LABS: Platelet Count 241 X10*3/uL (160-400)
[2022-06-21] MEDS: 0.9 % Sodium Chloride Flush 3 ML SYRINGE IVFLUSH (09:25)
[2022-06-21] MEDS: Clopidogrel Bisulfate 75 MG TABLET PO (09:26)
[2022-06-21] MEDS: Metoprolol Succinate ER 25 MG TAB.ER.24H PO (09:26)
[2022-06-21] MEDS: Aspirin Enteric Coated 81 MG TABLET.DR PO (09:26)
[2022-06-21] MEDS: Ferrous Sulfate 324 MG TABLET.DR PO (09:28)
[2022-06-21] MEDS: Heparin Sodium,Porcine/1/2NS 25,000 UNIT/250 ML IV.SOLN 13.63 UNIT IVCONT (09:31)
[2022-06-21 10:45] VITALS: BP 135/78; PULSE 90; RESP 12; TEMP 36.8; O2SAT 94
[2022-06-21 10:48] LABS: Glucose, Whole Blood 83 mg/dL (60-115)
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
--- NOTE | 2022-06-21 13:24 | PM.PNCARD ---
Subjective Subjective Date of Service: 06/21/22 Interval history: Seen examined at bedside. Feeling okay and denying any chest discomfort shortness of breath. CTA of aorta was done yesterday and did not show any abnormalities. Physical Exam Vital Signs: Last Vital Signs Temp 98.2 F 06/21/22 10:45 Pulse 90 06/21/22 10:45 Resp 12 06/21/22 10:45 BP 135/78 06/21/22 10:45 Pulse Ox 94 06/21/22 10:45 O2 Del Method 06/21/22 10:45 BMI result Body Mass Index 32.6 GENERAL APPEARANCE: in no acute distress, pleasant. NECK: no carotid bruit, positive jugular venous distention. SKIN: no suspicious lesions, warm and dry. HEART: no murmurs, regular rate and rhythm. LUNGS: clear to auscultation bilaterally. ABDOMEN: soft, nontender. EXTREMITIES: Positive edema. Both feet have open wounds. PERIPHERAL PULSES: equal. Objective Labs and Meds 06/21/22 06:36 06/21/22 06:36 Lab results: Laboratory Results - last 24 hr 06/20/22 06/20/22 06/20/22 15:17 15:33 19:29 WBC RBC Hgb Hct MCV MCH MCHC RDW Plt Count MPV Absolute Nucleated RBC Nucleated RBC % (auto) aPTT Heparin Protocol 26.0 L D Sodium Potassium Chloride Carbon Dioxide Anion Gap BUN Creatinine Estim Creat Clear Calc Estimated GFR POC Glucose 100 106 Fasting Glucose Calcium 06/20/22 06/21/22 06/21/22 23:11 06:36 06:36 WBC 9.2 RBC 4.27 Hgb 9.2 L Hct 31.0 L MCV 72.6 L MCH 21.5 L MCHC 29.7 L RDW 21.9 H Plt Count 241 MPV Not Reportable Absolute Nucleated RBC 0.030 H Nucleated RBC % (auto) 0.3 H aPTT Heparin Protocol 53.4 D Sodium 141 Potassium 4.4 Chloride 105 Carbon Dioxide 26 Anion Gap 14 BUN 22 H Creatinine 0.91 Estim Creat Clear Calc 75.7 Estimated GFR > 60 POC Glucose Fasting Glucose 91 Calcium 8.1 L 06/21/22 06/21/22 06/21/22 06:36 06:58 10:42 WBC RBC Hgb Hct MCV MCH MCHC RDW Plt Count MPV Absolute Nucleated RBC Nucleated RBC % (auto) aPTT Heparin Protocol 64.4 D Sodium Potassium Chloride Carbon Dioxide Anion Gap BUN Creatinine Estim Creat Clear Calc Estimated GFR POC Glucose 97 83 Fasting Glucose Calcium Imaging Radiologist's impression: Impressions Chest CTA 06/20/22 18:41 IMPRESSION: Unremarkable examination. Fleischner guidelines were followed. IMPRESSION: 1. No evidence of aortic aneurysm, dissection or intramural hematoma. 2. New cardiomegaly and worsening of bilateral pleural effusions. Could this patient have a cardiomyopathy? 3. New multifocal groundglass infiltrates in the upper lobes. Findings worrisome for viral pneumonia. Much less likely felt to be atypical CHF 4. Incidental note made of splenomegaly and probable hepatomegaly. Fleischner guidelines were followed. This critical result was discussed with Dr. Best, the covering hospitalist, at 8:00 PM on the evening of the exam and it was ascertained that the content and urgency of the report was understood at the time of direct communication. Progress Note: A&P Assessment and plan (1) CHF (congestive heart failure): Status: Acute (2) Acute non-ST elevation myocardial infarction (NSTEMI): Status: Acute (3) Ischemic cardiomyopathy: Status: Acute Plan 51-year-old female who is presenting with wounds on both feet. 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 She previously has presented with NSTEMI and left AMA. Echocardiography is showing severe LV dysfunction with regional wall motion abnormalities in the LAD and RCA territory. LV also appears to be mildly dilated. Continue heparin drip for now. Started her on IV diuretics. Adding losartan 25 mg once a day. I had a detailed discussion with the patient and her significant other about proceeding with cardiac catheterization to assess for underlying coronary disease as potential cause for cardiomyopathy. Patient was agreeable and was as per the the received communication from the hospital medicine team that the patient again has decided to leave against medical advice. I think she has poor insight about her disease process. This has been a trend that she comes in leaves AMA and my opinion this is due to tobacco dependence and she wants to smoke. Thank you for allowing me to participate in the care of your patient. Please feel free to contact me if you have any questions. Time Spent With Patient Time: Total time managing care of this patient today ____ minutes. Progress Note: Quality Stroke Does the patient have a stroke diagnosis?: No Procedures Date of Service Date of Service: 06/21/22
--- NOTE | 2022-06-21 13:27 | P.DS_ITS ---
DS: Providers Provider Date of Service: 06/21/22 Date of admission: 06/19/22 00:52 Primary care physician: Emilie Dangelo MD Consults: 06/19/22 01:04 Consult to Cardiology Routine Consulting Provider: Chandana Dave Reason for consultation: NSTEMI/CHF Has provider been notified: Yes Consult to Wound Care Routine [place] [facility] [place] [facility] Reason for consultation: diabetic foot wound 06/19/22 11:43 Consult to Infectious Diseases Routine Consulting Provider: Angie Padilla Reason for consultation: dfu 06/20/22 14:41 Consult to Vascular Surgery Routine Consulting Provider: Marco Lopez Reason for consultation: concern for pvd DS: Diagnosis Discharge Diagnosis (1) CHF (congestive heart failure): Status: Acute DS: Summary Hospital Course Hospital Course: from initial hpi: Chief Complaint: Pain ?this is a 51-year-old female with pertinent history of COPD, diastolic heart failure, insulin-dependent diabetes mellitus with neuropathy, essential hypert ension who presents to the emergency department with right foot pain and swelling.? Patient has multiple complaints at this time.? She was admitted on 06/14 for COPD exacerbation, acute on chronic CHF, sepsis due to diabetic foot infection and community-acquired pneumonia but left AMA.? Patient states she is here for similar complaints.? Her right foot is bothering her and she has been having intense pain.? She also complains of chest discomfort, dyspnea with exertion, productive cough with increased sputum production.? States she noticed fever at home.? Does report orthopnea.? She states she has pain all over upon obtaining review of systems ?in the emergency department, patient was found to have elevated BNP and troponin.? IV heparin and IV antibiotics initiated along with IV Lasix hospital course: Patient was admitted for NSTEMI. Was treated with dual antiplatelet, statin, IV heparin, metoprolol, plan was to transfer to [facility] for cardiac catheterization, however, patient decided to leave against medical advice. She Demonstrated understanding of the risks of doing so including . patient was also treated for acute on chronic CHF now with reduced EF, ec ho showed cardiomyopathy with EF of 20-25%. She was treated with IV Lasix and had decent response. Initially was concerned for diabetic foot ulcer with right lower extremity cellulitis. She was treated with vancomycin and Zosyn, she was seen by infectious disease recommended deescalation to doxycycline. She was seen by vascular for burn from heating blanket, recommended Silvadene. Should change with doxycycline for multifocal pneumonia, respiratory panel is pending. For diabetes with hyperglycemia she was continue on insulin. For chronic iron deficiency anemia she was given iron. For hypertension she was continued on metoprolol. For COPD with moderate persistent asthma issues continue on bronchodilators and singular. Time Spent with Patient Time attestation: Total time managing care of this patient today ____ minutes. Discharge coordination time: Greater than 30 minutes Quality: Safe Use of Opioids Does Pt have an Active Cancer Diagnosis on the Problem List?: No Quality: Stroke Does the patient have a stroke diagnosis?: No Physical Exam Vital Signs: Vital Signs: Last Vital Signs Temp 98.2 F 06/21/22 10:45 Pulse 90 06/21/22 10:45 Resp 12 06/21/22 10:45 BP 135/78 06/21/22 10:45 Pulse Ox 94 06/21/22 10:45 O2 Del Method 06/21/22 10:45 BMI result Body Mass Index 32.6 DS: Data Data Completed and Pending Completed studies during hospitalization [Text1]: Procedures Drainage of Left Foot Skin, External Approach (11/18/21) Excision of Left Foot Subcutaneous Tissue and Fascia, Open Approach (11/18/21) Insertion of Infusion Device into Superior Vena Cava, Percutaneous Approach (08/21/21) Labs on day of discharge: Laboratory Results - last 24 hr 06/20/22 06/20/22 06/20/22 15:17 15:33 19:29 WBC RBC Hgb Hct MCV MCH MCHC RDW Plt Count MPV Absolute Nucleated RBC Nucleated RBC % (auto) aPTT Heparin Protocol 26.0 L D Sodium Potassium Chloride Carbon Dioxide Anion Gap BUN Creatinine Estim Creat Clear Calc Estimated GFR POC Glucose 100 106 Fasting Glucose Calcium Respiratory Panel Echols Adenovirus (Rapid PCR) B.pert (TEM-PCR) B.parapertussis DNA PCR C. pneumoniae DNA (PCR) Coronavirus OC43 (PCR) Coronavirus HKU1 (PCR) Coronavirus 229E (PCR) Coronavirus NL63 (PCR) Human Metapneumovir PCR Influenza A (RT-PCR) Influenza B (RT-PCR) M. pneumoniae (PCR) Parainfluenza 1 (PCR) Parainfluenza 2 (PCR) Parainfluenza 3 (PCR) Parainfluenza 4 (PCR) RSV (PCR) Entero/Rhino (PCR) SARS-CoV-2 RNA (RT-PCR) 06/20/22 06/21/22 06/21/22 23:11 06:36 06:36 WBC 9.2 RBC 4.27 Hgb 9.2 L Hct 31.0 L MCV 72.6 L MCH 21.5 L MCHC 29.7 L RDW 21.9 H Plt Count 241 MPV Not Reportable Absolute Nucleated RBC 0.030 H Nucleated RBC % (auto) 0.3 H aPTT Heparin Protocol 53.4 D Sodium 141 Potassium 4.4 Chloride 105 Carbon Dioxide 26 Anion Gap 14 BUN 22 H Creatinine 0.91 Estim Creat Clear Calc 75.7 Estimated GFR > 60 POC Glucose Fasting Glucose 91 Calcium 8.1 L Respiratory Panel Echols Adenovirus (Rapid PCR) B.pert (TEM-PCR) B.parapertussis DNA PCR C. pneumoniae DNA (PCR) Coronavirus OC43 (PCR) Coronavirus HKU1 (PCR) Coronavirus 229E (PCR) Coronavirus NL63 (PCR) Human Metapneumovir PCR Influenza A (RT-PCR) Influenza B (RT-PCR) M. pneumoniae (PCR) Parainfluenza 1 (PCR) Parainfluenza 2 (PCR) Parainfluenza 3 (PCR) Parainfluenza 4 (PCR) RSV (PCR) Entero/Rhino (PCR) SARS-CoV-2 RNA (RT-PCR) 06/21/22 06/21/22 06/21/22 06:36 06:58 10:42 WBC RBC Hgb Hct MCV MCH MCHC RDW Plt Count MPV Absolute Nucleated RBC Nucleated RBC % (auto) aPTT Heparin Protocol 64.4 D Sodium Potassium Chloride Carbon Dioxide Anion Gap BUN Creatinine Estim Creat Clear Calc Estimated GFR POC Glucose 97 83 Fasting Glucose Calcium Respiratory Panel E[place]ols Adenovirus (Rapid PCR) B.pert (TEM-PCR) B.parapertussis DNA PCR C. pneumoniae DNA (PCR) Coronavirus OC43 (PCR) Coronavirus HKU1 (PCR) Coronavirus 229E (PCR) Coronavirus NL63 (PCR) Human Metapneumovir PCR Influenza A (RT-PCR) Influenza B (RT-PCR) M. pneumoniae (PCR) Parainfluenza 1 (PCR) Parainfluenza 2 (PCR) Parainfluenza 3 (PCR) Parainfluenza 4 (PCR) RSV (PCR) Entero/Rhino (PCR) SARS-CoV-2 RNA (RT-PCR) 06/21/22 12:02 WBC RBC Hgb Hct MCV MCH MCHC RDW Plt Count MPV Absolute Nucleated RBC Nucleated RBC % (auto) aPTT Heparin Protocol Sodium Potassium Chloride Carbon Dioxide Anion Gap BUN Creatinine Estim Creat Clear Calc Estimated GFR POC Glucose Fasting Glucose Calcium Respiratory Panel Echols Cancelled Adenovirus (Rapid PCR) Cancelled B.pert (TEM-PCR) Cancelled B.parapertussis DNA PCR Cancelled C. pneumoniae DNA (PCR) Cancelled Coronavirus OC43 (PCR) Cancelled Coronavirus HKU1 (PCR) Cancelled Coronavirus 229E (PCR) Cancelled Coronavirus NL63 (PCR) Cancelled Human Metapneumovir PCR Cancelled Influenza A (RT-PCR) Cancelled Influenza B (RT-PCR) Cancelled M. pneumoniae (PCR) Cancelled Parainfluenza 1 (PCR) Cancelled Parainfluenza 2 (PCR) Cancelled Parainfluenza 3 (PCR) Cancelled Parainfluenza 4 (PCR) Cancelled RSV (PCR) Cancelled Entero/Rhino (PCR) Cancelled SARS-CoV-2 RNA (RT-PCR) Cancelled Preliminary micro results at discharge 06/18/22 23:18 Blood Culture - Preliminary Blood - Venous No growth after 48 hours. 06/18/22 23:13 Blood Culture - Preliminary Blood - Venous No growth after 48 hours. Discharge Plan Discharge Anticipated Discharge Date/Time: 06/21/22 13:22 Patient Disposition: Left Against Medical Advice Discharge Diagnosis: nstemi, cardiomyopathy, pna Referrals: Emilie Dangelo MD [Primary Care Provider] - 1 Week Discharge Medications: No Action aspirin 81 mg tablet,delayed release (DR/EC) 1 tab PO DAILY glipizide-metformin 5-500 mg tablet 2 tab PO BID lisinopril-hydrochlorothiazide 20-12.5 mg tablet 1 tab PO DAILY Incruse Ellipta 62.5 mcg/actuation blister with device 1 puff PO DAILY montelukast 10 mg tablet 1 tab PO BEDTIME insulin glargine [Lantus Solostar U-100 Insulin] 100 unit/mL (3 mL) insulin pen 20 unit subcut BEDTIME gabapentin 300 mg capsule 2 cap PO BEDTIME furosemide 40 mg Tablet 40 mg PO DAILY atorvastatin 80 mg Tablet 80 mg PO BEDTIME clopidogrel 75 mg Tablet 75 mg PO DAILY metoprolol succinate 25 mg Tablet Extended Release 24 Hr 25 mg PO DAILY albuterol sulfate 2.5 mg /3 mL (0.083 %) solution for nebulization 1 vial inhalation Q6H PRN (Reason: Wheezing) albuterol sulfate [Ventolin HFA] 90 mcg/actuation HFA aerosol inhaler 1 - 2 puff INHALATION Q4-6H PRN (Reason: Wheezing) Discharge Orders: Discharge Order (Routine); Ordered 06/21/22 Ordered By: Jaren Schrader Activity Restrictions/Additional Instructions: Wound care to bilateral feet and left lateral leg: Please cleanse wound with normal saline apply Silvadene cream cover with 4 x 4 and Kerlix wrap. To be changed daily. Please call Dr. Lopez office as outpatient for follow-up Care Plan Goals: recovery Health Concerns: nstemi, cardiomyopathy, pna Plan of Treatment: cannot adequately treat outpatient Assessment: see above
--- NOTE | 2022-06-21 13:35 | MHC.CM.PN ---
pt left ama
--- NOTE | 2022-06-21 13:54 | MHC.CM.PN ---
Patient has left AMA.
[2022-06-21 15:24] LABS: Adenovirus PCR Not Detected (Not Detect.); Bordetella parapertussis PCR Not Detected (Not Detect.); Bordetella pertussis PCR Not Detected (Not Detect.); Chlamydia pneumoniae PCR Not Detected (Not Detect.); Coronavirus 229E PCR Not Detected (Not Detect.); Coronavirus HKU1 PCR Not Detected (Not Detect.); Coronavirus NL63 PCR Not Detected (Not Detect.); Coronavirus OC43 PCR Not Detected (Not Detect.); Human metapneumovirus PCR Not Detected (Not Detect.); Influenza A PCR Not Detected (Not Detect.); Influenza B PCR Not Detected (Not Detect.); Mycoplasma pneumoniae PCR Not Detected (Not Detect.); Parainfluenza 1 PCR Not Detected (Not Detect.); Parainfluenza 2 PCR Not Detected (Not Detect.); Parainfluenza 3 PCR Not Detected (Not Detect.); Parainfluenza 4 PCR Not Detected (Not Detect.); RSV PCR Not Detected (Not Detect.); Rhino/Enterovirus PCR Not Detected (Not Detect.); SARS-CoV-2 PCR Not Detected (Not Detect.)
== END 2022-06-21 13:52 | disposition left against medical advice (07) | DRG 190 ==
LOC: HO.ED 22:53 → HO.EDOVER 06-19 01:01 → HO.IMC 06-20 07:56
PROVIDERS: Nurse Practitioner Family; Admitting Provider Student in an Organized Health Care Education/Training Program; Emergency Provider Student in an Organized Health Care Education/Training Program; PCP Internal Medicine; Visit Provider Internal Medicine
DX: I21.4 Non-ST elevation (NSTEMI) myocardial infarction (principal); I50.33 Acute on chronic diastolic (congestive) heart failure; J18.9 Pneumonia, unspecified organism; J44.0 Chronic obstructive pulmonary disease with (acute) lower respiratory infection; L03.116 Cellulitis of left lower limb; E11.40 Type 2 diabetes mellitus with diabetic neuropathy, unspecified; E11.621 Type 2 diabetes mellitus with foot ulcer; I11.0 Hypertensive heart disease with heart failure; T24.232A Burn of second degree of left lower leg, initial encounter; L97.429 Non-pressure chronic ulcer of left heel and midfoot with unspecified severity; D50.9 Iron deficiency anemia, unspecified; E11.65 Type 2 diabetes mellitus with hyperglycemia; I25.10 Atherosclerotic heart disease of native coronary artery without angina pectoris; I25.5 Ischemic cardiomyopathy; J45.40 Moderate persistent asthma, uncomplicated; F17.210 Nicotine dependence, cigarettes, uncomplicated; T31.0 Burns involving less than 10% of body surface; X16.XXXA Contact with hot heating appliances, radiators and pipes, initial encounter; Z20.822 Contact with and (suspected) exposure to COVID-19; Z71.6 Tobacco abuse counseling; Z91.199 Patient's noncompliance with other medical treatment and regimen due to unspecified reason; Z88.0 Allergy status to penicillin; Z88.5 Allergy status to narcotic agent; Z79.4 Long term (current) use of insulin; Z79.82 Long term (current) use of aspirin; Z79.02 Long term (current) use of antithrombotics/antiplatelets; Z79.899 Other long term (current) drug therapy
CPT/HCPCS: 0241U; 36415; 71045; 71275; 73620; 80048; 80053; 80202; 80307; 81001; 82077; 82947; 83540; 83605; 83735; 83880; 84484; 85025; 85027; 85610; 85730; 86850; 86900; 86901; 86923; 87040; 87086; 87633; 93005; 93306; 93925; 94640; 99285; J0692; J1643; J1940; J2270; J2405; J2930; J3370; P9016; Q9957; Q9967

== ENCOUNTER 2022-08-27 17:25 | Emergency (ER) | payer MEDICAID, SELFPAY ==
--- NOTE | ~2022-08-27 | XR_ITS ---
EXAMINATION: XR CHEST CLINICAL INFORMATION: Chest pain COMPARISON: Chest x-ray June 2022. CT chest 06/20/2022 TECHNIQUE: Frontal portable view of the chest was obtained. 6:33 PM FINDINGS: No significant abnormality is noted involving the heart, lungs, mediastinum, bony thorax or soft tissues. XR/XR chest 1V IMPRESSION: Unremarkable examination.
--- NOTE | 2022-08-27 17:35 | ECG_ITS ---
Test Reason : CHEST PAIN Blood Pressure : / mmHG Vent. Rate : 102 BPM Atrial Rate : 102 BPM P-R Int : 154 ms QRS Dur : 074 ms QT Int : 364 ms P-R-T Axes : 068 097 090 degrees QTc Int : 474 ms AGE AND GENDER SPECIFIC ECG ANALYSIS Sinus tachycardia Rightward axis Low voltage QRS Cannot rule out Anteroseptal infarct (cited on or before 13-JUN-2022) Inferolateral injury pattern ACUTE IN / STEMI Consider right ventricular involvement in acute inferior infarct Abnormal ECG When compared with ECG of 20-JUN-2022 17:26, ST elevation now present in Inferior leads ST elevation now present in Anterior leads Referred By: Generic ED Physician Electronically Signed By:Gurmeet Gallardo
[2022-08-27 17:38] VITALS: BP 123/78; PULSE 101; RESP 16; TEMP 36.5; O2SAT 100; BMI 31.8
--- NOTE | 2022-08-27 17:58 | ED.CHESTPAIN ---
HPI - Chest Pain General Chief Complaint: Chest Pain Stated Complaint: chest pain Time Seen by Provider: 08/27/22 17:58 Source: patient Mode of arrival: EMS Limitations: no limitations History of Present Illness HPI narrative: 52-year-old female who presents emergency department for evaluation of 2 days of intermittent chest pain. She states that this morning at 09:00 hours she woke up and had a sharp pain in the left side of her chest. She states the pain is been constant since that time. She states that the pain is 9/10 at its worst. She has associated dizziness. The pain does radiate down her left arm her left arm feels numb. She has had nausea with 3 episodes of vomiting. She denied diaphoresis or lightheadedness. The patient states she has been having constant upper back pain times 2-3 weeks. Patient states she has had 5 heart attacks but has never had any pain with heart attacks. She states that she was supposed to go to [facility] on 08/17/2022 for consultation for possible coronary artery bypass. Related Data Home Medications Medication Instructions Recorded Confirmed aspirin 81 mg tablet,delayed 1 tab PO DAILY 12/24/20 06/19/22 release glipizide 5 mg-metformin 500 mg 2 tab PO BID 12/24/20 06/19/22 tablet lisinopril 20 1 tab PO DAILY 10/31/21 06/19/22 mg-hydrochlorothiazide 12.5 mg tablet umeclidinium 62.5 mcg/actuation 1 puff PO DAILY 10/31/21 06/19/22 blister powder for inhalation (Incruse Ellipta) montelukast 10 mg tablet 1 tab PO BEDTIME 02/13/22 06/19/22 insulin glargine 100 unit/mL (3 20 unit subcut BEDTIME 03/23/22 06/19/22 mL) subcutaneous pen (Lantus Solostar U-100 Insulin) atorvastatin 80 mg tablet 80 mg PO BEDTIME 05/01/22 06/19/22 clopidogrel 75 mg tablet 75 mg PO DAILY 05/01/22 06/19/22 furosemide 40 mg tablet 40 mg PO DAILY 05/01/22 06/19/22 gabapentin 300 mg capsule 2 cap PO BEDTIME 05/01/22 06/19/22 metoprolol succinate 25 mg 25 mg PO DAILY 05/01/22 06/19/22 tablet,extended release 24 hr albuterol sulfate 2.5 mg/3 mL 1 vial inhalation Q6H PRN Wheezing 06/19/22 06/19/22 (0.083 %) solution for nebulization albuterol sulfate 90 mcg/actuation 1 - 2 puff inhalation Q4-6H PRN 06/19/22 06/19/22 aerosol inhaler (Ventolin HFA) Wheezing Allergies Allergy/AdvReac Type Severity Reaction Status Date / Time Penicillins [PENICILLINS] Allergy Severe RASH Verified 08/27/22 17:42 amoxicillin [AMOXICILLIN] Allergy Intermediate HIVES Verified 08/27/22 17:42 codeine Allergy Itching Verified 08/27/22 17:42 Review of Systems Review of Systems: Yes all other systems are reviewed and are negative PMFSH Past Medical History [facility] Narrative: Past medical history: Reviewed below. Social history: The patient smokes quarter pack of cigarettes per day she states she has been smoking for 41 years. She denies alcohol use. She denies drug use. Medical History Asthma Atherosclerotic cardiovascular disease Atrial tachycardia COPD (chronic obstructive pulmonary disease) COVID-19 vaccine series completed Diabetes Diabetic toe ulcer Essential hypertension GERD (gastroesophageal reflux disease) Hypertension Left against medical advice Osteomyelitis Surgical History History of esophagogastroduodenoscopy (EGD) History of toe surgery (09/22/21) Family History Family History Mother Hx of CABG Sister CAD (coronary artery disease) Social History Social History Household Members: Spouse and Children Housing: Apartment Do you presently have visiting nurse or other home services: No Alcohol intake: current Alcohol intake frequency: does not drink Alcohol type: wine and hard liquor Patient Tobacco Use Status: Current everyday Tobacco user Tobacco use type: Cigarette Cigarette Packs Per Day: 0.5 Cigarettes Per Day: 10.0 Years Smoked: 43 Smoked in Last 30 Days: Yes e-Cigarette/Vaping Use: Never Used Second Hand Smoke Exposure: Yes Use of substances other than those prescribed or required for medical reasons: No Advance Directives: Yes Advance Directives on File: Yes Advance Directives Date on File: 12/28/20 service: No Current occupational status: disabled Physical Exam Vital Signs: Vital Signs: Last Vital Signs Temp 97.7 F 08/27/22 17:38 Pulse 97 08/27/22 19:07 Resp 16 08/27/22 19:11 BP 117/76 08/27/22 19:07 Pulse Ox 99 08/27/22 18:42 O2 Del Method 08/27/22 18:42 BMI result Body Mass Index 31.8 Const: General: cooperative and no acute distress Orientation/consciousness: oriented to person and oriented to place Limitations: no limitations HEENT: Other: Poor dentition Head: Yes normal to inspection, Yes normocephalic and Yes atraumatic Ears: external ears normal General nose exam: Normal external nose present Face and sinus: Yes normal facial exam Mouth: Normal oral and palatal mucosa present Throat: Yes posterior oropharynx normal Eyes: General: appearance normal, both eyes and all related structures Pupils: Equal, round and reactive pupils present Neck: Neck: Yes normal visual inspection, Yes no lymphadenopathy, Yes trachea midline and Yes supple Chest: Chest palpation & inspection: normal inspection of the chest and tenderness (Left-sided chest wall tenderness) Resp: Effort & Inspection: normal respiratory effort and able to speak in complete sentences Auscultation: clear to auscultation bilaterally Cardio: Rate: regular rate Rhythm: regular rhythm Heart sounds: S1 normal heart sound present, S2 normal heart sound present and no murmurs GI: Inspection: Yes normal to inspection Palpation (GI): Soft to palpation, nontender and no guarding Auscultation: normal bowel sounds : General: Yes no CVA tenderness Back/Spine/Pelvis: Back: no CVA tenderness Skin: General skin exam: no rashes or lesions noted Neuro: General: oriented to person and oriented to place Cranial nerves: Yes CN's II-XII intact bilaterally and Yes Equal, round and reactive pupils present Cognition (Neuro): normal cognition Motor exam (neuro): 5/5 motor strength present throughout Extrem: Other: 1+ pitting edema, bilaterally symmetric Psych: Appearance: grossly normal Speech and movement: Normal speech and movement present Affect: normal affect Attitude: cooperative Medications Administered Discontinued Medications Generic Name Dose Route Start Last Admin Trade Name Freq PRN Reason Stop Dose Admin Aspirin 324 mg 08/27/22 18:09 08/27/22 18:18 Aspirin 81 Mg Tab.Chew PO 08/27/22 18:10 Not Given ONCE ONE Atorvastatin Calcium 80 mg 08/27/22 18:09 08/27/22 18:17 Atorvastatin Calcium 80 Mg Tablet PO 08/27/22 18:10 80 mg ONCE ONE Administration Fentanyl 50 mcg 08/27/22 18:11 08/27/22 18:18 Fentanyl Citrate/Pf 100 Mcg/2 Ml Vial IVPUSH 08/27/22 18:12 50 mcg ONCE STA Administration Protocol Fentanyl 50 mcg 08/27/22 18:33 08/27/22 18:37 Fentanyl Citrate/Pf 100 Mcg/2 Ml Vial IVPUSH 08/27/22 18:34 50 mcg ONCE ONE Administration Protocol Fentanyl 50 mcg 08/27/22 19:00 08/27/22 19:11 Fentanyl Citrate/Pf 100 Mcg/2 Ml Vial IVPUSH 08/27/22 19:01 50 mcg ONCE ONE Administration Protocol Heparin Sodium (Porcine) 4,000 unit 08/27/22 18:09 08/27/22 18:21 Heparin Sodium,Porcine 5,000 Unit/Ml Vial IVPUSH 08/27/22 18:10 4,000 unit ONCE ONE Administration Nitroglycerin 0.4 mg 08/27/22 18:11 08/27/22 18:26 Nitroglycerin 0.4 Mg Tab.Subl SUBLINGUAL 0.4 mg Q5MX3 PRN Administration chestpin Ticagrelor 180 mg 08/27/22 18:09 08/27/22 18:15 Ticagrelor 90 Mg Tablet PO 08/27/22 18:10 180 mg ONCE ONE Administration Medical Decision Making Medical Decision Making [facility] Narrative: 52-year-old female who presents emergency department for evaluation of intermittent chest pain x2 days with constant chest pain since waking up this morning at 09:00 hours. Patient points to her left chest when asked to localize the pain. The pain is sharp pain. The patient's pain was 9/10. Pain was associated with nausea, vomiting, shortness of breath dyspnea on exertion. Pain does radiate down her left arm. Patient does have known coronary artery disease and states she was scheduled for a consult at [facility] on 08/17/2022 which she missed to discuss possible CABG. Patient's physical examination did reveal left-sided chest wall tenderness otherwise was unremarkable. The patient's 12 EKG was concerning for Q-waves V1 through V3 with ST segment elevation V2 through V5. Compared to EKG dated 06/20/2022 the Q-wave in V1 is old the Q-waves V2 V3 are new. ST segment elevation V2 through V5 are new. Patient's presentation is consistent with acute STEMI. I did order for Lantus a 680 mg orally, aspirin 324 mg orally, atorvastatin 80 mg orally, fentanyl 50 mg IV x2 and nitroglycerin 0.4 mg sublingually. I did discuss the patient's presentation with the covering cardiology interventionalist at [facility], Dr. Gallardo. He did accept the patient in transfer and is going to activate the cardiac agricultural labor camp manager transfer. The accepting physician is Dr. Steen. 1899: There are no ALS ambulance is available to transfer this patient to [facility] at this time. We did contact the [facility] critical care team and they are going to send an ambulance to our facility to transport the patient. 2011: My interpretation of patient's laboratory evaluation is as follows: Low H&H 10.3 and 35, this is chronic. Sodium low 130. BUN elevated 24. Glucose elevated 461. AST and ALT elevated 635582. High sensitive troponin I elevated 2200.2. COVID-19 negative. I did send these resides over tiger text to Dr. Gallardo. Differential Diagnosis Differential diagnosis includes was not limited to myocardial infarction, aortic dissection Consult Healthcare Provider Management of the patient was discussed with: Rigging Foreman (Dr. Valdivia-template worker covering [facility]) Lab Data [facility] Lab Attestation statement: I reviewed the patient's lab results. Please see [facility] for discussion 08/27/22 19:09 08/27/22 19:09 Labs: Lab Results 08/27/22 08/27/22 08/27/22 Range/Units 19:09 19:09 19:09 WBC 9.6 (4.8-10.8) X10*3/uL RBC 5.13 D (4.20-5.50) X10*6/uL Hgb 10.3 L (12.0-16.0) g/dl Hct 35.1 L (37.0-47.0) % MCV 68.4 L (80.0-98.0) fL MCH 20.1 L (27.0-33.0) pg MCHC 29.3 L (31.0-35.0) g/dl RDW 21.0 H (11.0-16.0) % Plt Count 219 (160-400) X10*3/uL Immature Gran % (Auto) 0.7 H (0.0-0.4) % Neut % (Auto) 82.1 H (45-73) % Lymph % (Auto) 10.3 L (20-40) % [place] % (Auto) 5.3 (2-11) % Eos % (Auto) 1.0 (0-4) % Baso % (Auto) 0.6 (0-2) % Lymph # (Auto) 1.0 L (1.2-4.9) X10*3/uL [place] # (Auto) 0.5 (0.1-1.2) X10*3/uL Eos # (Auto) 0.1 (0.0-0.4) X10*3/uL Baso # (Auto) 0.1 (0.0-0.2) X10*3/uL Abs Immat Gran (auto) 0.07 H (0.00-0.03) X10*3/uL Absolute Neuts (auto) 7.9 (2.0-8.3) x10*3/uL Absolute Nucleated RBC 0.030 H (0.0-0.012) X10*3/uL Nucleated RBC % (auto) 0.3 H (0.0-0.2) /100WBC Sodium 130 L (135-145) mmol/L Potassium 4.4 (3.3-5.1) mmol/L Chloride 96 (96-108) mmol/L Carbon Dioxide 22 (22-29) mmol/L Anion Gap 16 (12-20) BUN 24 H (9-16) mg/dL Creatinine 1.37 (0.5-1.4) mg/dL Estim Creat Clear Calc 49.1 Estimated GFR 41 Random Glucose 461 H* (60-115) mg/dL Calcium 8.4 (8.4-10.2) mg/dL Total Bilirubin 1.1 H (0.0-1.0) mg/dL AST 30 (5-31) U/L ALT 137 H (0-31) U/L Alkaline Phosphatase 151 H (39-117) U/L Troponin I High Sens 2200.2 H* D (<3.5-17.0) ng/L Total Protein 6.0 L (6.5-8.0) g/dL Albumin 3.2 L (3.5-5.0) g/dL COVID-19 (KATHLEEN) (Negative) COVID-19 Clin Com 08/27/22 Range/Units 19:10 WBC (4.8-10.8) X10*3/uL RBC (4.20-5.50) X10*6/uL Hgb (12.0-16.0) g/dl Hct (37.0-47.0) % MCV (80.0-98.0) fL MCH (27.0-33.0) pg MCHC (31.0-35.0) g/dl RDW (11.0-16.0) % Plt Count (160-400) X10*3/uL Immature Gran % (Auto) (0.0-0.4) % Neut % (Auto) (45-73) % Lymph % (Auto) (20-40) % [place] % (Auto) (2-11) % Eos % (Auto) (0-4) % Baso % (Auto) (0-2) % Lymph # (Auto) (1.2-4.9) X10*3/uL [place] # (Auto) (0.1-1.2) X10*3/uL Eos # (Auto) (0.0-0.4) X10*3/uL Baso # (Auto) (0.0-0.2) X10*3/uL Abs Immat Gran (auto) (0.00-0.03) X10*3/uL Absolute Neuts (auto) (2.0-8.3) x10*3/uL Absolute Nucleated RBC (0.0-0.012) X10*3/uL Nucleated RBC % (auto) (0.0-0.2) /100WBC Sodium (135-145) mmol/L Potassium (3.3-5.1) mmol/L Chloride (96-108) mmol/L Carbon Dioxide (22-29) mmol/L Anion Gap (12-20) BUN (9-16) mg/dL Creatinine (0.5-1.4) mg/dL Estim Creat Clear Calc Estimated GFR Random Glucose (60-115) mg/dL Calcium (8.4-10.2) mg/dL Total Bilirubin (0.0-1.0) mg/dL AST (5-31) U/L ALT (0-31) U/L Alkaline Phosphatase (39-117) U/L Troponin I High Sens (<3.5-17.0) ng/L Total Protein (6.5-8.0) g/dL Albumin (3.5-5.0) g/dL COVID-19 (KATHLEEN) Negative (Negative) COVID-19 Clin Com See Note Independent Interpretation I performed an independent interpretation of an: EKG and Plain X-Ray Interpretation: My independent interpretation of the patient's 12 EKG is as follows: Sinus tachycardia with rate of 102, normal TN interval, normal QRS duration, no QTC interval, Q-waves V1 through V3 ST segment elevation V2 through V 6 compared to EKG dated 06/20/2022 the Q-waves in V2 and V3 are new in the ST segment elevation V2 through V5 are new. My independent interpretation of the patient's one-view chest x-ray, increased interstitial markings, similar to previous chest x-ray done on 06/19/2022, I do not appreciate and mediastinal widening Radiology Impression Discussion of test interpretation with radiology: I have reviewed the radiologist's reading. Radiologist Impression: XR chest 1V IMPRESSION: Unremarkable examination. Dictated By:Xavier William MDSigned By:<Electronically signed by Xavier William MD in OV>08/27/222008 Critical Care Time Critical Care Time Critical Care Time: Yes Total Critical Care Time: 45 Attestation: Critical Care: The patient was critically ill with a high probability of imminent or life threatening deterioration. I spent greater than 30 minutes of discontinuous time evaluating the patient,delivering critical care at the bedside, discussing and evaluating pertinent data with consultants. Critical care time does not include time spent performing separately billable procedures or teaching. Total time spent performing critical care was 45 minutes. Discharge Plan Discharge Clinical Impression: Acute non-ST segment elevation myocardial infarction Patient Disposition: [facility] Transfer Details: [facility] cardiac catheterization lab Prescriptions: No Action aspirin 81 mg tablet,delayed release (DR/EC) 1 tab PO DAILY glipizide-metformin 5-500 mg tablet 2 tab PO BID lisinopril-hydrochlorothiazide 20-12.5 mg tablet 1 tab PO DAILY Incruse Ellipta 62.5 mcg/actuation blister with device 1 puff PO DAILY montelukast 10 mg tablet 1 tab PO BEDTIME insulin glargine [Lantus Solostar U-100 Insulin] 100 unit/mL (3 mL) insulin pen 20 unit subcut BEDTIME gabapentin 300 mg capsule 2 cap PO BEDTIME furosemide 40 mg Tablet 40 mg PO DAILY atorvastatin 80 mg Tablet 80 mg PO BEDTIME clopidogrel 75 mg Tablet 75 mg PO DAILY metoprolol succinate 25 mg Tablet Extended Release 24 Hr 25 mg PO DAILY albuterol sulfate 2.5 mg /3 mL (0.083 %) solution for nebulization 1 vial inhalation Q6H PRN (Reason: Wheezing) albuterol sulfate [Ventolin HFA] 90 mcg/actuation HFA aerosol inhaler 1 - 2 puff INHALATION Q4-6H PRN (Reason: Wheezing) Interventions: Acute Care Transfer Worksheet (ED) Last Done: 08/27/22 19:25 Discharge Date/Time: 08/27/22 19:25
[2022-08-27] MEDS: Ticagrelor 90 MG TABLET 180 MG PO (18:15)
[2022-08-27] MEDS: Atorvastatin Calcium 80 MG TABLET PO (18:17)
[2022-08-27] MEDS: fentaNYL citrate/PF 100 MCG/2 ML VIAL 50 MCG IVPUSH ×3 (18:18→19:11)
[2022-08-27] MEDS: Heparin Sodium,Porcine 5,000 UNIT/ML VIAL 4000 UNIT IVPUSH (18:21)
[2022-08-27] MEDS: Nitroglycerin 0.4 MG TAB.SUBL SUBLINGUAL (18:26)
[2022-08-27 18:28] VITALS: BP 124/95; PULSE 100; PULSE 99; RESP 16; O2SAT 99
[2022-08-27 18:31] VITALS: BP 108/73; PULSE 97; RESP 12; O2SAT 100
--- NOTE | 2022-08-27 18:41 | MHC.EDTECH ---
PT WAS A STEMI. [facility] STEMI LINE WAS CONTACTED WAS TOLD DR GIBBS WILL CALL OUR PROVIDER. DR GIBBS CALLED BACK SPOKE WITH PROVIDER. [facility] WAS THEN CONTACTED FOR THE STEMI STANDBY. [facility] TOLD ME THEY WERE GOING TO SEND A TRUCK. WHILE WE WAITED FOR A SECOND PHONE CALL FROM DR BERNIE HECTOR SHOWED UP WITH A BLS TRUCK FOR THE ALS. I THEN SPOKE WITH CHARGE ABOUT CALLING [facility] CCT TEAM. BERNIE CALLED BACK SAYING THAT THEY ARE ACCEPTING THE PT. I THEN CONTACTED [facility] TRANSFER LINE TO ASK FOR THE CCT TEAM I PROVIDED THEM WITH DEMOGRAPHIC INFROMATION. I CALLED [facility] CCT THEY TOLD ME I HAVE TO CALL [facility] THEY BOOK IT. I THEN CALLED [facility] ASKING ABOUT TRANSPORT THEY THEN STATED THAT THERE CANT SEND A TRUCK TO US. I THEN STATED THAT THIS IS UNACCEPTABLE BEING THAT WE [place] ALS TRUCKS [place]. THEY TRANSFERRED ME TO THEIR MAGISTRATE JUDGE AND I PROVIDED HIM WITH THE INFORMATION HE SAID HE WILL LAUNCH THE TRANSPORT TEAM. [facility] PROVIDED A ROOM [id number] DR TINEO IS THE ACCEPTING PROVIDER.
[2022-08-27 18:42] VITALS: BP 125/82; PULSE 98; RESP 18; O2SAT 99
[2022-08-27 19:07] VITALS: BP 117/76; PULSE 97; RESP 18
--- NOTE | 2022-08-27 19:08 | PC.NURSE ---
report given to terrence lim at [facility] quality lab technician. attempts at second IV unsuccessful.
[2022-08-27 19:11] VITALS: RESP 16
--- NOTE | 2022-08-27 19:18 | PC.NURSE ---
Blood work drawn by straight stick, collected and sent to lab.
[2022-08-27 19:22] LABS: Hematocrit 35.1 % (37.0-47.0); Hemoglobin 10.3 g/dl (12.0-16.0); Mean Corpuscular HGB Conc 29.3 g/dl (31.0-35.0); SCAN SMEAR FLAG 1
[2022-08-27 19:24] LABS: Basophils Absolute Auto 0.1 X10*3/uL (0.0-0.2); Basophils Percent Auto 0.6 % (0-2); Eosinophils Absolute Auto 0.1 X10*3/uL (0.0-0.4); Imm Gran Abs Auto 0.07 X10*3/uL (0.00-0.03); Imm Gran Pct Auto 0.7 % (0.0-0.4); Lymphocytes Percent Auto 10.3 % (20-40); MANUAL DIFF FLAG SCAN; Mean Corpuscular Hemoglobin 20.1 pg (27.0-33.0); Mean Corpuscular Volume 68.4 fL (80.0-98.0); Monocytes Absolute Auto 0.5 X10*3/uL (0.1-1.2); Monocytes Percent Auto 5.3 % (2-11); NRBC Pct Auto 0.3 /100WBC (0.0-0.2); Neutrophils Absolute Auto 7.9 x10*3/uL (2.0-8.3); Neutrophils Percent Auto 82.1 % (45-73); Platelet Count 219 X10*3/uL (160-400); Red Blood Count 5.13 X10*6/uL (4.20-5.50); White Blood Count 9.6 X10*3/uL (4.8-10.8)
[2022-08-27 19:39] LABS: PLT ABN DIST 1
[2022-08-27 19:50] LABS: COVID-19 Test Negative (Negative); IDNOW Serial# 6674DD1D
[2022-08-27 20:00] LABS: Alanine Aminotransferase 137 U/L (0-31); Albumin Level 3.2 g/dL (3.5-5.0); Alkaline Phosphatase 151 U/L (39-117); Anion Gap 16 (12-20); Aspartate Amino Transferase 30 U/L (5-31); Bilirubin Total 1.1 mg/dL (0.0-1.0); Blood Urea Nitrogen 24 mg/dL (9-16); Calcium 8.4 mg/dL (8.4-10.2); Carbon Dioxide 22 mmol/L (22-29); Chloride 96 mmol/L (96-108); Creatinine Clr Calc Pharmacy 49.1; Estimated Glomerular Filt Rate 41; Glucose Random 461 mg/dL (60-115); Potassium 4.4 mmol/L (3.3-5.1); Sodium 130 mmol/L (135-145)
[2022-08-27 20:05] LABS: Troponin-I High Sensitivity 2200.2 ng/L (<3.5-17.0)
[2022-08-27 20:31] LABS: B Type Natriuretic Peptide 3384 pg/mL (<100)
[2022-08-27 20:53] LABS: SLIDE REVIEW VERIFIED
== END 2022-08-27 19:25 | disposition short-term general hospital (02) ==
PROVIDERS: Emergency Provider Emergency Medicine Emergency Medical Services
DX: I21.4 Non-ST elevation (NSTEMI) myocardial infarction (principal); R60.0 Localized edema; R06.02 Shortness of breath; Z20.822 Contact with and (suspected) exposure to COVID-19; E11.9 Type 2 diabetes mellitus without complications; I10 Essential (primary) hypertension; F17.210 Nicotine dependence, cigarettes, uncomplicated; Z79.82 Long term (current) use of aspirin; Z79.899 Other long term (current) drug therapy; Z79.02 Long term (current) use of antithrombotics/antiplatelets; Z79.4 Long term (current) use of insulin
CPT/HCPCS: 36415; 71045; 80053; 83880; 84484; 85025; 87635; 93005; 96374; 96375; 96376; 99285; J1643; J3010

== ENCOUNTER 2022-09-08 09:03 | Inpatient (IN) | payer MEDICAID, SELFPAY ==
[2022-09-08] VITALS (9 sets, daily range): BP systolic 112–125; BP diastolic 58–79; PULSE 95–112; RESP 12–18; TEMP 36.3–36.9; O2SAT 95–100; BMI 28.3
--- NOTE | ~2022-09-08 | XR_ITS ---
EXAMINATION: XR FOOT, LEFT CLINICAL INFORMATION: Left foot pain, rule out osteomyelitis. COMPARISON: Left radiographs dated 06/18/2022. TECHNIQUE: AP, lateral, and oblique views of the left foot. FINDINGS: A soft tissue wound is seen along the distal/dorsal aspect of the first digit. Underlying cortical deformity seen along the distal/dorsal aspect of the distal phalanx of the first digit. The remainder the digits are intact. The tarsal bones are normally aligned. Small plantar and retrocalcaneal spurs are noted. Post surgical changes are seen in the second digit with resection of the phalanges and chronic deformity of the distal aspect of the second metatarsal. The remainder of the intact. The tarsal bones are aligned. Small plantar and retrocalcaneal spurs. Mild to moderate soft tissue swelling. XR/XR foot LT 2V IMPRESSION: 1. Soft tissue defect distally in the first digit with cortical deformity in the subjacent distal phalanx concerning for osteomyelitis. 2. Post surgical changes in the second digit without significant change. No definitive associated acute abnormality. 3. Mild to moderate soft tissue swelling.
--- NOTE | ~2022-09-08 | CT_ITS ---
EXAMINATION: CT ABDOMEN AND PELVIS WITH CONTRAST CLINICAL INFORMATION: Abdominal bruising, pain. COMPARISON: CT scan of the abdomen and pelvis dated 06/13/2022. TECHNIQUE: Multidetector volumetric images were obtained from the superior aspect of the liver through the pubic symphysis following administration 85 mL of Omnipaque 350 intravenous contrast. Sagittal and coronal reformatted images were obtained on the technologist's workstation. Oral contrast: No This CT examination was performed using dose optimization techniques as appropriate, variously including the following: *Automated exposure control *Adjustment of mA and/or kV according to patient size (this includes techniques or standardized protocols for targeted exams where dose is matched to indication/reason for exam; i.e. extremities or head) *Use of iterative reconstruction technique DLP: 514 mGy-cm FINDINGS: LUNG BASES: The visualized lung bases are unremarkable. LIVER, GALLBLADDER, AND BILIARY TREE: The liver is normal in size, shape, and attenuation. No focal hepatic lesion or biliary ductal dilatation is present. The gallbladder is unremarkable with no evidence of radiopaque gallstones, gallbladder wall thickening, or obvious pericholecystic inflammatory changes. PANCREAS: Unremarkable. SPLEEN: Unremarkable. ADRENAL GLANDS: Unremarkable. KIDNEYS AND URETERS: The kidneys are normal in size, shape, and attenuation. No hydronephrosis, hydroureter, or calculi seen. No perinephric stranding. BLADDER: Unremarkable. GASTROINTESTINAL TRACT: The small and large bowel are unremarkable. The appendix is unremarkable. ABDOMINAL WALL: No significant hernia is appreciated. LYMPH NODES: Normal. VASCULAR: Unremarkable. PELVIC VISCERA: Unremarkable. OSSEOUS STRUCTURES: Unremarkable. CT/CT abdomen pelvis w IV con IMPRESSION: No significant abnormality. Fleischner guidelines were followed.
--- NOTE | ~2022-09-08 | XR_ITS ---
EXAMINATION: XR CHEST CLINICAL INFORMATION: Tachypnea COMPARISON: 08/27/2022 TECHNIQUE: Frontal view of the chest was obtained. FINDINGS: The lungs are well expanded. There is no focal consolidation, edema, or effusion. Bronchial wall thickening present. No pneumothorax. The cardiomediastinal silhouette is within normal limits. No acute osseous abnormality. XR/XR chest 1V IMPRESSION: No dense consolidation. Bronchial wall thickening can be seen with a small airways process such as asthma or atypical/viral infection.
--- NOTE | ~2022-09-08 | XR_ITS ---
EXAMINATION: XR FOOT, RIGHT CLINICAL INFORMATION: Diabetic foot ulcers. COMPARISON: None available. TECHNIQUE: AP, lateral, and oblique views of the right foot. FINDINGS: There is no acute fracture or dislocation. The joint spaces are unremarkable. The tarsal bones are normally aligned. A soft tissue wound is seen lateral to the tarsal bones without underlying osseous abnormality. Small plantar calcaneal spur. XR/XR foot RT 2V IMPRESSION: 1. Soft tissue wound lateral to the tarsal bones without underlying osseous abnormality. No overt evidence for osteomyelitis. 2. Small degenerative plantar calcaneal spur.
--- NOTE | ~2022-09-08 | CT_ITS ---
EXAMINATION: CT CHEST WITHOUT CONTRAST CLINICAL INFORMATION: Irregular nodule on chest x-ray COMPARISON: Chest radiograph 08/27/2022 No significant abnormality is noted involving the heart, lungs, mediastinum, bony thorax or soft tissues. TECHNIQUE: Multidetector volumetric CT imaging of the chest was done. Axial MIP volume rendering provided. Sagittal and coronal reformatted images were obtained. This CT examination was performed using dose optimization techniques as appropriate, variously including the following: *Automated exposure control *Adjustment of mA and/or kV according to patient size (this includes techniques or standardized protocols for targeted exams where dose is matched to indication/reason for exam; i.e. extremities or head) *Use of iterative reconstruction technique DLP: 230 mGy-cm FINDINGS: There is marked motion artifact degrading detail. LUNGS: There are some opacities in the right upper lobe that suggests tree-in-bud inflammatory changes. Bibasilar atelectasis is present. MEDIASTINUM: Heart size is within normal limits. A small pericardial effusion is present. CORONARY ARTERY CALCIFICATION: None visualized on this study. PLEURA: Small bilateral pleural effusions are seen, right greater than left. AXILLA: No lymphadenopathy. UPPER ABDOMEN: Unremarkable. OSSEOUS STRUCTURES: Unremarkable. CT/CT chest wo IV con IMPRESSION: 1. There are some tree-in-bud inflammatory changes in the right upper lobe. 2. In terms of evaluation for lung masses, the study is extremely suboptimal secondary to motion artifact, but no large pulmonary masses are present. 3. Small bilateral pleural effusions, right greater than left. 4. Small pericardial effusion. Fleischner guidelines were followed.
--- NOTE | 2022-09-08 09:43 | ED_ITS ---
HPI - General Adult General Chief complaint: Wound/Laceration Stated complaint: BLE DM ULCERS PAIN/WEAPING PER EMS Time Seen by Provider: 09/08/22 09:42 Source: patient and EMS Mode of arrival: EMS Limitations: no limitations History of Present Illness HPI narrative: Patient is a 52 year old assigned female at with a history of NSTEMI, STEMI (08/27/2022), CHF, cardiomyopathy, and diabetes presenting to the em ergency department today with worsening bilateral foot pain and bruising to her abdominal pain. Patient states that her foot wounds have been getting significantly worse and she is having the most pain in her left great toe. Patient states that she also noticed bruising to her abdomen and she is unsure where that came from. Patient states that she was discharged from [facility] after they went in and cleaned out some vessels in her heart patient states that they started her on aspirin but no other anticoagulation medications. Patient denies any dizziness, lightheadedness, abdominal pain, nausea, vomiting, fever, chills, blurry vision, double vision, loss of vision, chest pain, difficulty hank athing, shortness of breath, back pain, night sweats, pain with urination, increased urinary frequency, increased urinary urgency, blood in her urine or stool, syncope or a near syncopal episode, recent trauma or falls, bowel incontinence, bladder incontinence, bowel retention, bladder retention, or any other complaints at this time. Onset (ago): day(s) Location: left, right and lower extremity Severity: moderate Severity scale (1-10): 4 Quality: aching Pain Consistency: constant Relieving factors: none Exacerbating factors: none Associated symptoms: denies other symptoms Treatments prior to arrival: none Related Data Home Medications Medication Instructions Recorded Confirmed aspirin 81 mg tablet,delayed 1 tab PO DAILY 12/24/20 09/08/22 release umeclidinium 62.5 mcg/actuation 1 puff PO DAILY 10/31/21 09/08/22 blister powder for inhalation (Incruse Ellipta) montelukast 10 mg tablet 1 tab PO BEDTIME 02/13/22 09/08/22 insulin glargine 100 unit/mL (3 20 unit subcut BID 03/23/22 09/08/22 mL) subcutaneous pen (Lantus Solostar U-100 Insulin) atorvastatin 80 mg tablet 80 mg PO BEDTIME 05/01/22 09/08/22 gabapentin 300 mg capsule 2 cap PO BID 05/01/22 09/08/22 albuterol sulfate 2.5 mg/3 mL 1 vial inhalation Q6H PRN Wheezing 06/19/22 09/08/22 (0.083 %) solution for nebulization albuterol sulfate 90 mcg/actuation 1 - 2 puff inhalation Q4-6H PRN 06/19/22 09/08/22 aerosol inhaler (Ventolin HFA) Wheezing lisinopril 20 mg tablet 20 mg PO DAILY 09/08/22 09/08/22 Allergies Allergy/AdvReac Type Severity Reaction Status Date / Time Penicillins [PENICILLINS] Allergy Severe RASH Verified 08/27/22 17:42 amoxicillin [AMOXICILLIN] Allergy Intermediate HIVES Verified 08/27/22 17:42 codeine Allergy Itching Verified 08/27/22 17:42 Review of Systems Constitutional: Constitutional: Reports no additional constitutional complaints, Denies chills, Denies fever(s) and Denies night sweats Eyes: Eyes: Reports no additional eye complaints, Denies blurry vision, Denies change in vision, Denies diplopia, Denies eye discharge, Denies loss of vision and Denies eye pain ENT: Denies dizziness Comments: right nare swelling Cardiovascular: Cardiovascular: Reports no additional cardiovascular complaints, Denies chest pain, Denies lightheadedness, Denies Loss of Consciousness and Denies dyspnea Respiratory: Respiratory: Reports no additional respiratory complaints and De nies dyspnea Gastrointestinal: Gastrointestinal: Reports no additional gastrointestinal complaints, Denies abdominal pain, Denies melena, Denies hematochezia, Denies change in bowel habits and Denies change in stool character Comments: abdominal bruising Genitourinary: Genitourinary: Denies hematuria, Denies urinary frequency, Denies dysuria, Denies urinary incontinence, Denies urinary hesitancy and Denies urinary urgency Musculoskeletal: Musculoskeletal: Reports no additional musculoskeletal complaints, Denies numbness and Denies tingling Comments: bilateral foot pain with wounds Neurologic: Denies dizziness, Denies loss of vision, Denies numbness and Denies tingling Psychiatric: Psychiatric: Reports no additional psychiatric complaints Endocrine: Endocrine: Reports no additional endocrine complaints Hematologic/Lymphatic: Hematologic/Lymphatic: Reports no additional hematologic/lymphatic complaints Allergic/Immunologic: Allergic/Immunologic: Reports no additional allergic /immunologic complaints PMFSH Past Medical History Attestation statement: The following information was validated with the patient. Source: old records reviewed and nursing notes reviewed Medical History (Updated 09/08/22 @ 16:29 by MITZI Campbell) Asthma Atherosclerotic cardiovascular disease Atrial tachycardia COPD (chronic obstructive pulmonary disease) COVID-19 vaccine series completed Diabetes Diabetic toe ulcer Essential hypertension GERD (gastroesophageal reflux disease) Hypertension Left against medical advice Osteomyelitis PAD (peripheral artery disease) Surgical History History of esophagogastroduodenoscopy (EGD) History of toe surgery (09/22/21) Family History Family History Mother Hx of CABG Sister CAD (coronary artery disease) Social History Social History Household Members: Spouse and Children Housing: Apartment Do you presently have visiting nurse or other home services: No Alcohol intake: never Patient Tobacco Use Status: Current everyday Tobacco user Tobacco use type: Cigarette Cigarette Packs Per Day: 0.5 Cigarettes Per Day: 10.0 Years Smoked: 43 Smoked in Last 30 Days: Yes e-Cigarette/Vaping Use: Never Used Second Hand Smoke Exposure: Yes Use of substances other than those prescribed or required for medical reasons: No Advance Directives: Yes Advance Directives on File: Yes Advance Directives Date on File: 12/28/20 service: No Current occupational status: disabled Physical Exam ED Vital Signs: Vital Signs - 24 hr 09/08/22 09:11 09/08/22 12:17 09/08/22 13:55 Temperature 97.8 F Pulse Rate 98 95 99 Respiratory Rate 16 18 17 Blood Pressure 113/74 123/75 Pulse Oximetry 97 98 Oxygen Delivery Method Room Air Room Air 09/08/22 14:08 Temperature Pulse Rate 98 Respiratory Rate 12 Blood Pressure 121/70 Pulse Oximetry 99 Oxygen Delivery Method Room Air BMI result Body Mass Index 28.3 Const General: cooperative, no acute distress, alert and awake Nutritional Appearance: well nourished Orientation/consciousness: patient oriented x3 Limitations: no limitations HENMT Other: Head: Yes normal to inspection and Yes atraumatic Ears: hearing grossly normal bilaterally and external ears normal General nose exam: nares abnormal, no nasal discharge noted and no epistaxis Face and sinus: Yes normal facial exam, No abrasion and No laceration Mouth: Normal oral and palatal mucosa present, no drooling and no muffled voice Eyes General: appearance normal, both eyes and all related structures Periorbital: periorbital findings normal Eyelids: Yes eyelids normal Conjunctivae: conjunctivae normal Pupils: Equal, round and reactive pupils present EOM: EOMs intact bilaterally Neck Neck: Yes normal visual inspection, Yes full ROM and Yes no lymphadenopathy Chest Chest palpation & inspection: normal inspection of the chest Resp Effort & Inspection: normal respiratory effort and able to speak in complete sentences Auscultation: clear to auscultation bilaterally Cardio Rate: regular rate Rhythm: regular rhythm GI Other: Inspection: Yes abdominal wall ecchymosis Palpation (GI): Soft to palpation, not firm, nontender, no guarding and not rigid Neuro General: patient oriented x3 and moves all extremities Cranial nerves: Yes Equal, round and reactive pupils present Cognition (Neuro): normal cognition Motor exam (neuro): 5/5 motor strength present throughout Sensory Exam: Normal double simultaneous stimulation for sensation Coordination: [id number] test normal Extrem Other: General: Yes full ROM and Yes capillary refill normal Psych Appearance: grossly normal Mental Status: mental status grossly normal Affect: normal affect Attitude: cooperative Thought process: Normal thought process present Thought content: Normal thought content present Insight: Good insight present (Psych) Medications Administered Discontinued Medications Generic Name Dose Route Start Last Admin Trade Name Benjaminq PRN Reason Stop Dose Admin Albuterol Sulfate 2 puff 09/08/22 13:11 09/08/22 13:55 Albuterol Sulfate 90 Mcg 8 Gm Inhaler INHALE 09/08/22 13:12 2 puff ONCE ONE Administration Furosemide 40 mg 09/08/22 09:00 09/08/22 16:13 Furosemide 40 Mg/4 Ml Vial IVPUSH Not Given DAILY MÓNICA Protocol Hydromorphone HCl 0.5 mg 09/08/22 10:48 09/08/22 10:54 Hydromorphone Hcl 1 Mg/Ml Syringe IVPUSH 09/08/22 10:49 0.5 mg ONCE ONE Administration Protocol Hydromorphone HCl 0.5 mg 09/08/22 13:11 09/08/22 13:29 Hydromorphone Hcl 0.5 Mg/0.5 Ml Syringe IVPUSH 09/08/22 13:12 0.5 mg ONCE ONE Administration Protocol Hydromorphone HCl 0.5 mg 09/08/22 14:11 09/08/22 15:20 Hydromorphone Hcl 0.5 Mg/0.5 Ml Syringe IVPUSH 09/08/22 14:12 0.5 mg ONCE ONE Administration Protocol Aztreonam 1 gm/ Sodium 50 mls @ 100 mls/hr 09/08/22 11:23 09/08/22 13:20 Chloride IV 09/08/22 11:52 Infused ONCE ONE Infusion Vancomycin HCl 1,000 mg/ 535 mls @ 267.5 mls/hr 09/08/22 12:00 09/08/22 12:54 Vancomycin HCl 750 mg/ Sodium IV 09/08/22 13:59 267.5 mls/hr Chloride ONCE ONE Administration Iohexol 100 ml 09/08/22 11:51 09/08/22 11:51 Iohexol 350 Mg/Ml 100 Ml Infus..Btl IV 09/08/22 11:52 85 ml ONCE ONE Administration Lorazepam 1 mg 09/08/22 14:11 09/08/22 15:19 Lorazepam 2 Mg/Ml Vial IVPUSH 09/08/22 14:12 1 mg ONCE ONE Administration Morphine Sulfate 4 mg 09/08/22 10:03 09/08/22 10:15 Morphine Sulfate 4 Mg/Ml Cartridge IVPUSH 09/08/22 10:04 4 mg ONCE ONE Administration Protocol Medical Decision Making Medical Decision Making [facility] Narrative: Patient is a 52 year old assigned female at with a history of diabetes, CHF, NSTEMI, and STEMI (08/27/2022) presenting to the emergency department today with bilateral foot pain and abdominal bruising. Patient's physical exam was as reported in the physical exam portion of this chart and as evident in the provided pictures. Patient's blood work showed an elevated WBC count of 17.7, an elevated CRP of 8.95, and a chronically elevated bilirubin of 2.7. Patient has a known history of elevated LFTs, including bilirubin. Patient's left foot x-ray showed possible acute osteomyelitis to the left great toe. Patient's abdomen/pelvis CT showed small bilateral pleural effusions, a small pericardial effusion, and a 1.5cm irregular nodule in the right lower lobe that the radiologist considered non-specific but states malignancy cannot be excluded. The radiologist further asserts that the patient is possibly in fluid overload without a known cause/source. Patient's clinical presentation is consistent with osteomyelitis of the left great toe and bilateral diabetic foot wounds. Patient is not septic or in septic shock (@1123). Patient was given IV antibiotics and IV pain medication. I spoke to the hospitalist team who agreed to admission. I explained my physical exam findings as well as all test results to the patient. I answered all questions asked by the patient. Patient verbalized agreement and understanding with this treatment plan and admission. Differential Diagnosis Differential Diagnoses: The differential diagnosis associated with the presentation includes osteomyelitis of the left great toe, abdominal wall bruising, non-compliant diabetic Consult Healthcare Provider Management of the patient was discussed with: Hospitalist (agreed to admission) Lab Data MDM Lab Attestation statement: I reviewed the patient's lab results. 09/08/22 10:30 09/08/22 10:30 Labs: Lab Results 09/08/22 09/08/22 09/08/22 Range/Units 09:44 10:14 10:29 WBC (4.8-10.8) X10*3/uL RBC (4.20-5.50) X10*6/uL Hgb (12.0-16.0) g/dl Hct (37.0-47.0) % MCV (80.0-98.0) fL MCH (27.0-33.0) pg MCHC (31.0-35.0) g/dl RDW (11.0-16.0) % Plt Count (160-400) X10*3/uL MPV Immature Gran % (Auto) (0.0-0.4) % Neut % (Auto) (45-73) % Lymph % (Auto) (20-40) % Beauregard % (Auto) (2-11) % Eos % (Auto) (0-4) % Baso % (Auto) (0-2) % Lymph # (Auto) (1.2-4.9) X10*3/uL Beauregard # (Auto) (0.1-1.2) X10*3/uL Eos # (Auto) (0.0-0.4) X10*3/uL Baso # (Auto) (0.0-0.2) X10*3/uL Abs Immat Gran (auto) (0.00-0.03) X10*3/uL Absolute Neuts (auto) (2.0-8.3) x10*3/uL Absolute Nucleated RBC (0.0-0.012) X10*3/uL Nucleated RBC % (auto) (0.0-0.2) /100WBC ESR 10 (0-20) MM/HR PT (10.0-13.1) SEC INR (0.9-1.1) APTT (26.0-36.4) SEC Sodium (135-145) mmol/L Potassium (3.3-5.1) mmol/L Chloride (96-108) mmol/L Carbon Dioxide (22-29) mmol/L Anion Gap (12-20) BUN (9-16) mg/dL Creatinine (0.5-1.4) mg/dL Estim Creat Clear Calc Estimated GFR POC Glucose 230 H (60-115) mg/dL Random Glucose (60-115) mg/dL Lactic Acid 2.0 (0.5-2.0) mmol/L Calcium (8.4-10.2) mg/dL Total Bilirubin (0.0-1.0) mg/dL Direct Bilirubin (0.0-0.5) mg/dL AST (5-31) U/L ALT (0-31) U/L Alkaline Phosphatase (39-117) U/L C-Reactive Protein (< or = 0.50) mg/dL Total Protein (6.5-8.0) g/dL Albumin (3.5-5.0) g/dL COVID-19 (KATHLEEN) (Negative) COVID-19 Clin Com 09/08/22 09/08/22 09/08/22 Range/Units 10:29 10:29 10:30 WBC 17.7 H (4.8-10.8) X10*3/uL RBC 4.79 (4.20-5.50) X10*6/uL Hgb 9.4 L (12.0-16.0) g/dl Hct 32.1 L (37.0-47.0) % MCV 67.0 L (80.0-98.0) fL MCH 19.6 L (27.0-33.0) pg MCHC 29.3 L (31.0-35.0) g/dl RDW 21.0 H (11.0-16.0) % Plt Count 249 (160-400) X10*3/uL MPV Not Reportable Immature Gran % (Auto) 0.7 H (0.0-0.4) % Neut % (Auto) 88.4 H (45-73) % Lymph % (Auto) 5.8 L (20-40) % Beauregard % (Auto) 4.6 (2-11) % Eos % (Auto) 0.3 (0-4) % Baso % (Auto) 0.2 (0-2) % Lymph # (Auto) 1.0 L (1.2-4.9) X10*3/uL Beauregard # (Auto) 0.8 (0.1-1.2) X10*3/uL Eos # (Auto) 0.1 (0.0-0.4) X10*3/uL Baso # (Auto) 0.0 (0.0-0.2) X10*3/uL Abs Immat Gran (auto) 0.12 H (0.00-0.03) X10*3/uL Absolute Neuts (auto) 15.6 H (2.0-8.3) x10*3/uL Absolute Nucleated RBC 0.030 H (0.0-0.012) X10*3/uL Nucleated RBC % (auto) 0.2 (0.0-0.2) /100WBC ESR (0-20) MM/HR PT (10.0-13.1) SEC INR (0.9-1.1) APTT (26.0-36.4) SEC Sodium (135-145) mmol/L Potassium (3.3-5.1) mmol/L Chloride (96-108) mmol/L Carbon Dioxide (22-29) mmol/L Anion Gap (12-20) BUN (9-16) mg/dL Creatinine (0.5-1.4) mg/dL Estim Creat Clear Calc Estimated GFR POC Glucose (60-115) mg/dL Random Glucose (60-115) mg/dL Lactic Acid (0.5-2.0) mmol/L Calcium (8.4-10.2) mg/dL Total Bilirubin (0.0-1.0) mg/dL Direct Bilirubin (0.0-0.5) mg/dL AST (5-31) U/L ALT (0-31) U/L Alkaline Phosphatase (39-117) U/L C-Reactive Protein 8.95 H (< or = 0.50) mg/dL Total Protein (6.5-8.0) g/dL Albumin (3.5-5.0) g/dL COVID-19 (KATHLEEN) Negative (Negative) COVID-19 Clin Com See Note 09/08/22 09/08/22 Range/Units 10:30 10:30 WBC (4.8-10.8) X10*3/uL RBC (4.20-5.50) X10*6/uL Hgb (12.0-16.0) g/dl Hct (37.0-47.0) % MCV (80.0-98.0) fL MCH (27.0-33.0) pg MCHC (31.0-35.0) g/dl RDW (11.0-16.0) % Plt Count (160-400) X10*3/uL MPV Immature Gran % (Auto) (0.0-0.4) % Neut % (Auto) (45-73) % Lymph % (Auto) (20-40) % Beauregard % (Auto) (2-11) % Eos % (Auto) (0-4) % Baso % (Auto) (0-2) % Lymph # (Auto) (1.2-4.9) X10*3/uL Beauregard # (Auto) (0.1-1.2) X10*3/uL Eos # (Auto) (0.0-0.4) X10*3/uL Baso # (Auto) (0.0-0.2) X10*3/uL Abs Immat Gran (auto) (0.00-0.03) X10*3/uL Absolute Neuts (auto) (2.0-8.3) x10*3/uL Absolute Nucleated RBC (0.0-0.012) X10*3/uL Nucleated RBC % (auto) (0.0-0.2) /100WBC ESR (0-20) MM/HR PT 19.8 H (10.0-13.1) SEC INR 1.7 H (0.9-1.1) APTT 26.7 (26.0-36.4) SEC Sodium 137 (135-145) mmol/L Potassium 3.7 (3.3-5.1) mmol/L Chloride 99 (96-108) mmol/L Carbon Dioxide 25 (22-29) mmol/L Anion Gap 17 (12-20) BUN 14 (9-16) mg/dL Creatinine 0.92 (0.5-1.4) mg/dL Estim Creat Clear Calc 69.0 Estimated GFR > 60 POC Glucose (60-115) mg/dL Random Glucose 217 H (60-115) mg/dL Lactic Acid (0.5-2.0) mmol/L Calcium 8.1 L (8.4-10.2) mg/dL Total Bilirubin 2.7 H (0.0-1.0) mg/dL Direct Bilirubin 1.3 H (0.0-0.5) mg/dL AST 11 (5-31) U/L ALT 23 (0-31) U/L Alkaline Phosphatase 91 (39-117) U/L C-Reactive Protein (< or = 0.50) mg/dL Total Protein 5.6 L (6.5-8.0) g/dL Albumin 2.8 L (3.5-5.0) g/dL COVID-19 (KATHLEEN) (Negative) COVID-19 Clin Com Independent Interpretation I performed an independent interpretation of an: Plain X-Ray and CT Scan Interpretation: My interpretation is in agreement with the radiologist's impression of these imaging studies. EXAMINATION: XR FOOT, LEFT CLINICAL INFORMATION: Left foot pain, rule out osteomyelitis.? COMPARISON: Left radiographs dated 06/18/2022. TECHNIQUE: AP, lateral, and oblique views of the left foot. FINDINGS: A soft tissue wound is seen along the distal/dorsal aspect of the first digit. Underlying cortical deformity seen along the distal/dorsal aspect of the distal phalanx of the first digit. The remainder the digits are intact. The tarsal bones are normally aligned. Small plantar and retrocalcaneal spurs are noted. Post surgical changes are seen in the second digit with resection of the phalanges and chronic deformity of the distal aspect of the second metatarsal. The remainder of the intact. The tarsal bones are aligned. Small plantar and retrocalcaneal spurs. Mild to moderate soft tissue swelling. XR/XR foot LT 2V IMPRESSION: 1. Soft tissue defect distally in the first digit with cortical deformity in the subjacent distal phalanx concerning for osteomyelitis. 2. Post surgical changes in the second digit without significant change. No definitive associated acute abnormality. 3. Mild to moderate soft tissue swelling. Dictated By: Thai Miles MD Signed By: Electronically signed by Thai Miles MD 09/08/22 1320 EXAMINATION: CT ABDOMEN AND PELVIS WITH CONTRAST? CLINICAL INFORMATION: Abdominal bruising, pain.? COMPARISON: CT scan of the abdomen and pelvis dated 06/13/2022. Chest CTA dated 06/20/2022. Chest CT scan dated 03/23/2022. TECHNIQUE: Multidetector volumetric images were obtained from the superior aspect of the liver through the pubic symphysis following administration 85 mL of Omnipaque 350 intravenous contrast. Sagittal and coronal reformatted images were obtained on the technologist's workstation.? Oral contrast: No This CT examination was performed using dose optimization techniques as appropriate, variously including the following: *Automated exposure control *Adjustment of mA and/or kV according to patient size (this includes techniques or standardized protocols for targeted exams where dose is matched to indication/reason for exam; i.e. extremities or head) *Use of iterative reconstruction technique DLP: 514 mGy-cm FINDINGS: LUNG BASES: Very small pericardial effusion. Small bilateral pleural effusions, right greater than left. Regular nodule seen posterolaterally in the right lower lobe measuring 1.5 cm (image 2, series 3). LIVER, GALLBLADDER, AND BILIARY TREE: Diffuse decreased hepatic attenuation. Focal enhancement is seen in segment 4 adjacent to the gallbladder. Possible minimal dependent sludge in the gallbladder without surrounding abnormality. No significant biliary ductal dilatation. PANCREAS: Unremarkable.? SPLEEN: Enlarged measuring up to 17.7 cm in cc dimension (image 53, series 5).? ADRENAL GLANDS: Left adrenal nodule measuring up to 1.7 cm (image 63, series 5). No right adrenal abnormality. KIDNEYS AND URETERS: Several small nonobstructing intrarenal calculi bilaterally. No hydroureteronephrosis. BLADDER: Unremarkable.? GASTROINTESTINAL TRACT: The stomach, small bowel and appendix are unremarkable. The colon is incompletely distended without focal abnormality. Mild peritoneal ascites.? ABDOMINAL WALL: Anasarca.? LYMPH NODES: Mildly prominent inguinal lymph nodes. VASCULAR: Mild to moderate atherosclerosis most pronounced in the infrarenal abdominal aorta and iliac vessels without aneurysmal dilatation. PELVIC VISCERA: Unremarkable.? OSSEOUS STRUCTURES: Unremarkable.? IMPRESSION: 1.? Small bilateral pleural effusions, right greater than left as well as small pericardial effusion. 2.? 1.5 cm irregular nodule in the right lower lobe is nonspecific. This could represent an infectious/inflammatory process. A malignancy cannot be excluded. A dedicated chest CT scan is recommended to assess the remainder the lungs. 3.? Hepatic steatosis. Non masslike focal enhancement in segment 8 adjacent to the gallbladder could represent focal fatty sparing or a benign hyperenhancement. Splenomegaly. 4.? Possible minimal dependent sludge in the gallbladder without evidence for acute cholecystitis. 5.? Mild peritoneal ascites and anasarca along with pleural and pericardial effusions suggest fluid overload from undetermined source. Addendum Dictated By: Thai Miles MD Addendum Signed By: Electronically signed by Thai Miles MD EXAMINATION: CT ABDOMEN AND PELVIS WITH CONTRAST? CLINICAL INFORMATION: Abdominal bruising, pain.? COMPARISON: CT scan of the abdomen and pelvis dated 06/13/2022. ? TECHNIQUE: Multidetector volumetric images were obtained from the superior aspect of the liver through the pubic symphysis following administration 85 mL of Omnipaque 350 intravenous contrast. Sagittal and coronal reformatted images were obtained on the technologist's workstation.? Oral contrast: No This CT examination was performed using dose optimization techniques as appropriate, variously including the following: *Automated exposure control *Adjustment of mA and/or kV according to patient size (this includes techniques or standardized protocols for targeted exams where dose is matched to indication/reason for exam; i.e. extremities or head) *Use of iterative reconstruction technique DLP: 514 mGy-cm FINDINGS: LUNG BASES: The visualized lung bases are unremarkable.? LIVER, GALLBLADDER, AND BILIARY TREE: The liver is normal in size, shape, and attenuation. No focal hepatic lesion or biliary ductal dilatation is present. The gallbladder is unremarkable with no evidence of radiopaque gallstones, gallbladder wall thickening, or obvious pericholecystic inflammatory changes.? PANCREAS: Unremarkable.? SPLEEN: Unremarkable.? ADRENAL GLANDS: Unremarkable.? KIDNEYS AND URETERS: The kidneys are normal in size, shape, and attenuation. No hydronephrosis, hydroureter, or calculi seen. No perinephric stranding. ? BLADDER: Unremarkable.? GASTROINTESTINAL TRACT: The small and large bowel are unremarkable. The appendix is unremarkable.? ABDOMINAL WALL: No significant hernia is appreciated.? LYMPH NODES: Normal. VASCULAR: Unremarkable. PELVIC VISCERA: Unremarkable.? OSSEOUS STRUCTURES: Unremarkable.? CT/CT abdomen pelvis w IV con IMPRESSION: No significant abnormality.? ? Fleischner guidelines were followed. Dictated By: Thai Miles MD Signed By: Electronically signed by Thai Miles MD 09/08/22 1341 Independent Historian Clinical information obtained from an independent historian. History obtained from or confirmed by: EMS External Record Review External record reviewed: Outside ED record ([facility]) and Other ([facility] admission 08/27/2022) Chronic Conditions Patient?s care impacted by: Diabetes Critical Care Time Critical Care Time Critical Care Time: Yes Total Critical Care Time: 30 Attestation: I spent 30 minutes of Critical Care Time with this patient. This does not include time spent on separately reported billable procedures. Discharge Plan Discharge Clinical Impression: Osteomyelitis, Fluid overload Patient Disposition: Admitted As Inpatient
--- NOTE | 2022-09-08 09:45 | MHC.EDTECH ---
POC 230 SUSANA [email or web address]
[2022-09-08 09:48] LABS: Glucose, Whole Blood 230 mg/dL (60-115)
--- NOTE | 2022-09-08 09:57 | PC.NURSE ---
Patient calm and cooperative with staff. Patient has multiple ulcers to bilateral feet; left worse than right. Patient states that the wound on the left outer heel has been draining for the past few days and the pain from these wounds have been making it hard to walk and move around. IV obtained.
[2022-09-08] MEDS: Morphine Sulfate 4 MG/ML CARTRIDGE IVPUSH (10:15)
[2022-09-08 10:40] LABS: MANUAL DIFF FLAG NO
[2022-09-08 10:49] LABS: Basophils Percent Auto 0.2 % (0-2); Eosinophils Absolute Auto 0.1 X10*3/uL (0.0-0.4); Eosinophils Percent Auto 0.3 % (0-4); Hematocrit 32.1 % (37.0-47.0); Hemoglobin 9.4 g/dl (12.0-16.0); Imm Gran Abs Auto 0.12 X10*3/uL (0.00-0.03); Imm Gran Pct Auto 0.7 % (0.0-0.4); Lymphocytes Percent Auto 5.8 % (20-40); Mean Corpuscular HGB Conc 29.3 g/dl (31.0-35.0); Mean Corpuscular Hemoglobin 19.6 pg (27.0-33.0); Monocytes Absolute Auto 0.8 X10*3/uL (0.1-1.2); Monocytes Percent Auto 4.6 % (2-11); NRBC Pct Auto 0.2 /100WBC (0.0-0.2); Neutrophils Absolute Auto 15.6 x10*3/uL (2.0-8.3); Neutrophils Percent Auto 88.4 % (45-73); Platelet Count 249 X10*3/uL (160-400); Red Blood Count 4.79 X10*6/uL (4.20-5.50); White Blood Count 17.7 X10*3/uL (4.8-10.8)
[2022-09-08 10:51] LABS: INTERNATIONAL NORM RATIO 1.7 (0.9-1.1); Prothrombin Time 19.8 SEC (10.0-13.1)
[2022-09-08 10:53] LABS: Partial Thromboplastin Time 26.7 SEC (26.0-36.4)
[2022-09-08] MEDS: HYDROmorphone HCl 1 MG/ML SYRINGE 0.5 MG IVPUSH (10:54)
[2022-09-08 10:58] LABS: C Reactive Protein 8.95 mg/dL (< or = 0.50)
[2022-09-08 11:00] LABS: Alanine Aminotransferase 23 U/L (0-31); Albumin Level 2.8 g/dL (3.5-5.0); Alkaline Phosphatase 91 U/L (39-117); Anion Gap 17 (12-20); Aspartate Amino Transferase 11 U/L (5-31); Bilirubin Direct 1.3 mg/dL (0.0-0.5); Bilirubin Total 2.7 mg/dL (0.0-1.0); Blood Urea Nitrogen 14 mg/dL (9-16); Calcium 8.1 mg/dL (8.4-10.2); Carbon Dioxide 25 mmol/L (22-29); Chloride 99 mmol/L (96-108); Estimated Glomerular Filt Rate > 60; Glucose Random 217 mg/dL (60-115); Potassium 3.7 mmol/L (3.3-5.1); Sodium 137 mmol/L (135-145); Total Protein 5.6 g/dL (6.5-8.0)
[2022-09-08 11:06] LABS: COVID-19 Test Negative (Negative); IDNOW Serial# BCCEAD1C
[2022-09-08 11:29] LABS: Erythrocyte Sedimentation Rate 10 MM/HR (0-20)
[2022-09-08] MEDS: iohexoL 350 MG/ML 100 ML INFUS..BTL IV (11:51)
[2022-09-08] MEDS: Aztreonam 1 GM in 0.9 % Sodium Chloride 50 ML IV (12:06)
[2022-09-08] MEDS: vancomycin HCL 1,000 MG, vancomycin HCL 750 MG in 0.9 % Sodium Chloride 500 ML 267.5 MG IV (12:54)
[2022-09-08] MEDS: HYDROmorphone HCl 0.5 MG/0.5 ML SYRINGE IVPUSH ×2 (13:29→15:20)
[2022-09-08] MEDS: Albuterol Sulfate 90 MCG 8 GM INHALER 2 PUFF INHALE (13:55)
--- NOTE | 2022-09-08 14:32 | PHA.MEDREC ---
Pharmacy Consult ? Medication Reconciliation Pharmacy has completed the medication reconciliation. Spoke to patient about medications. Patient states not taking clopidogrel ,ticagrelor ,furosemide, metoprolol, valsartan, carvedilol
--- NOTE | 2022-09-08 14:34 | P.HPHOSP_ITS ---
History of Present Illness Date of Service: 09/08/22 <MITZI Crews - Last Filed: 09/11/22 10:58> Attending physician on admission: Delta Umaña <MITZI Crews - Last Filed: 09/11/22 10:58> Chief Complaint: foot infection <Delta Umaña MD - Last Filed: 09/09/22 09:47> 51-year-old female with pertinent history of asthma/COPD COPD, HFrEF, insulin- dependent diabetes mellitus with neuropathy, essential hypertension, PAD, NSTEMI , ischemic cardiomyopathy, and recent STEMI discharged from [facility] 08/27 s/p BARTOLOME to proximal LAD presents who is a current 0.5 pack per day smoker to the ED for evaluation of worsening bilateral food pain and abdominal bruising. She reports she has had nonhealing ulcers of the bilateral feet for about one year that had been improving but began worsening again recently with significant increase in pain of the left foot yesterday. She states the wounds have foul odor, but denies purulent drainage, endorses serous drainage. She has a history of osteomyelitis and is s/p amputation left 2nd toe. She is also reporting shortness of breath and occassional productive cough. She has not been compliant with discharge medications following d/c from [facility] on 08/31 for STEMI including not taking Brilinta, carvedilol, valsartan, and furosemide 40 mg b.i.d (on review of [facility] DC Summary), stating she was unaware. She is also complaining of bruising on the abdomen, but was receiving subq heparin TID while admitted. On arrival, vital stable. Patient afebrile. Lab significant for leukocytosis of 70.7, macrocytic anemia with H/H 9.4/32.1% and MCV 67.0. Renal function normal, electrolyte levels normal. Glucose 230. Total bilirubin 2.7, direct bilirubin 1.3, AST/ALT normal. CRP 8.95. ESR 10. INR 1.7, PT 19.8. X-ray of the left foot showing soft tissue defect distally in the 1st digit with cortical deformity in the sub adjacent distal phalanx concerning for osteomyelitis as well as [id number] soft tissue swelling. CT abdomen/pelvis showing small bilateral pleural effusions, right greater than left as well as small pericardial effusion, 1.5 cm regular nodule in the right lower lobe possibly infectious versus inflammatory but malignancy cannot be excluded. Specific to the abdomen, there is noted to be hepatic steatosis, possible minimal dependent sludge without evidence of acute cholecystitis as well as mild peritoneal ascites and anasarca. In the ED< given vanco and azactam, lorazepam, morphine and dilaudid. <MITZI Crews - Last Filed: 09/11/22 10:58> Review of Systems Review of Systems: General: No fevers, malaise, unintentional weight loss HEENT: No blurred vision, diplopia. No sore throat, nasal congestion, rhinorrhea, sinus pain, ear pain Cardiovascular: No chest pain, palpitations. +BLE Respiratory: +sob, +cough. No wheezing GI: +abdominal pain. No nausea, vomiting, diarrhea, constipation, melena, hematochezia : No dysuria, hematuria, increased urinary frequency, decreased urinary output MSK: No myalgia, back pain Neuro: No headaches, weakness, paresthesias Skin: No rashes or lesions. +b/l diabetic foot ulcers <MITZI Crews - Last Filed: 09/11/22 10:58> FORMERLY [facility], [facility] Medical History: Medical History Asthma Atherosclerotic cardiovascular disease Atrial tachycardia COPD (chronic obstructive pulmonary disease) COVID-19 vaccine series completed Diabetes Diabetic toe ulcer Essential hypertension GERD (gastroesophageal reflux disease) Hypertension Left against medical advice Osteomyelitis PAD (peripheral artery disease) <MITZI Crews - Last Filed: 09/11/22 10:58> Family History: Family History Mother Hx of CABG Sister CAD (coronary artery disease) <MITZI Crews - Last Filed: 09/11/22 10:58> Surgical History: Surgical History History of esophagogastroduodenoscopy (EGD) History of toe surgery (09/22/21) <MITZI Crews Last Filed: 09/11/22 10:58> Social History: Social History Household Members: None Housing: Apartment Do you presently have visiting nurse or other home services: No Unable to assess alcohol history related to: Refusing to respond Alcohol intake: never Patient Tobacco Use Status: Current everyday Tobacco user Tobacco use type: Cigarette Cigarette Packs Per Day: 0.5 Cigarettes Per Day: 10.0 Years Smoked: 43 e-Cigarette/Vaping Use: Currently Using Second Hand Smoke Exposure: Yes Advance Directives Date on File: 12/28/20 service: No Current occupational status: unemployed and disabled <MITZI Crews - Last Filed: 09/11/22 10:58> Meds Allergies/Adverse reactions: Allergies Allergy/AdvReac Type Severity Reaction Status Date / Time Penicillins [PENICILLINS] Allergy Severe RASH Verified 08/27/22 17:42 amoxicillin [AMOXICILLIN] Allergy Intermediate HIVES Verified 08/27/22 17:42 codeine Allergy Itching Verified 08/27/22 17:42 <MITZI Crews - Last Filed: 09/11/22 10:58> Active Medications: Current Medications Pharmacy Consult (Consult Rx Perform Med Rec) 1 each MISCELLANE ONCE PRN PRN Reason: Consult order <MITZI Crews - Last Filed: 09/11/22 10:58> Home medications: Home Medications Medication Instructions Recorded Confirmed Last Taken Type aspirin 81 mg tablet,delayed 1 tab PO DAILY 12/24/20 09/08/22 09/07/22 History release umeclidinium 62.5 mcg/actuation 1 puff PO DAILY 10/31/21 09/08/22 09/07/22 History blister powder for inhalation (Incruse Ellipta) montelukast 10 mg tablet 1 tab PO BEDTIME 02/13/22 09/08/22 09/07/22 History insulin glargine 100 unit/mL (3 20 unit subcut BID 03/23/22 09/08/22 09/07/22 History mL) subcutaneous pen (Lantus Solostar U-100 Insulin) atorvastatin 80 mg tablet 80 mg PO BEDTIME 05/01/22 09/08/22 09/07/22 History gabapentin 300 mg capsule 2 cap PO BID 05/01/22 09/08/22 09/07/22 History albuterol sulfate 2.5 mg/3 mL 1 vial inhalation Q6H PRN Wheezing 06/19/22 09/08/22 09/07/22 History (0.083 %) solution for nebulization albuterol sulfate 90 mcg/actuation 1 - 2 puff inhalation Q4-6H PRN 06/19/22 09/08/22 09/07/22 History aerosol inhaler (Ventolin HFA) Wheezing lisinopril 20 mg tablet 20 mg PO DAILY 09/08/22 09/08/22 09/07/22 History <MITZI Crews - Last Filed: 09/11/22 10:58> Physical Exam Vital Signs and Narrative: Vital Signs: Last Vital Signs Temp 97.8 F 09/08/22 09:11 Pulse 98 09/08/22 14:08 Resp 12 09/08/22 14:08 BP 121/70 09/08/22 14:08 Pulse Ox 99 09/08/22 14:08 O2 Del Method Room Air 09/08/22 14:08 BMI result Body Mass Index 28.3 <MITZI Crews - Last Filed: 09/11/22 10:58> Constitutional - Awake and Alert, No apparent distress Eyes - PERRLA, EOMI Cardiovascular - S1S2, RRR, 3+ edema RLE, 2+ edema RLE Respiratory - Normal lung expansion, Normal respiratory effort, No respiratory distress, CTA bilaterally Gastrointestinal - NT / ND; +BS; No rebound or guarding Extremities - no calf tenderness bilaterally, no swelling Musculoskeletal - Normal inspection, normal ROM Skin - Warm/Dry. Nonhealing stage 2 diabetic foot ulcation of left great toe, left heel, and linear ulceration of plantar aspect of the feet bilaterally wi thout purulent drainage or foul odor. There is erythema of the left foot and distal aspect of the lower leg. See photos. Ecchymosis of the lower abdomen Neurological - Alert & oriented x3 Psychological - Appropriate affect <MITZI Crews - Last Filed: 09/11/22 10:58> Results Labs CBC and Chem 7: 09/08/22 10:30 09/08/22 10:30 <MITZI Crews - Last Filed: 09/11/22 10:58> Labs: Laboratory Results - last 24 hr 03/09/08/22 09/08/22 09:44 10:14 10:29 MCV MCH MCHC RDW Plt Count MPV Immature Gran % (Auto) Neut % (Auto) Lymph % (Auto) [place] % (Auto) Eos % (Auto) Baso % (Auto) Lymph # (Auto) [place] # (Auto) Eos # (Auto) Baso # (Auto) Abs Immat Gran (auto) Absolute Neuts (auto) Absolute Nucleated RBC Nucleated RBC % (auto) ESR 10 PT INR APTT Anion Gap Estim Creat Clear Calc Estimated GFR POC Glucose 230 H Random Glucose Lactic Acid 2.0 Calcium Total Bilirubin Direct Bilirubin AST ALT Alkaline Phosphatase C-Reactive Protein Total Protein Albumin COVID-19 (KATHLEEN) COVID-19 [employer] [facility] 09/08/22 09/08/22 09/08/22 10:29 10:29 10:30 MCV 67.0 L MCH 19.6 L MCHC 29.3 L RDW 21.0 H Plt Count 249 MPV Not Reportable Immature Gran % (Auto) 0.7 H Neut % (Auto) 88.4 H Lymph % (Auto) 5.8 L [place] % (Auto) 4.6 Eos % (Auto) 0.3 Baso % (Auto) 0.2 Lymph # (Auto) 1.0 L [place] # (Auto) 0.8 Eos # (Auto) 0.1 Baso # (Auto) 0.0 Abs Immat Gran (auto) 0.12 H Absolute Neuts (auto) 15.6 H Absolute Nucleated RBC 0.030 H Nucleated RBC % (auto) 0.2 ESR PT INR APTT Anion Gap Estim Creat Clear Calc Estimated GFR POC Glucose Random Glucose Lactic Acid Calcium Total Bilirubin Direct Bilirubin AST ALT Alkaline Phosphatase C-Reactive Protein 8.95 H Total Protein Albumin COVID-19 (KATHLEEN) Negative COVID-19 Clin Com See Note 09/08/22 09/08/22 10:30 10:30 MCV MCH MCHC RDW Plt Count MPV Immature Gran % (Auto) Neut % (Auto) Lymph % (Auto) [place] % (Auto) Eos % (Auto) Baso % (Auto) Lymph # (Auto) [place] # (Auto) Eos # (Auto) Baso # (Auto) Abs Immat Gran (auto) Absolute Neuts (auto) Absolute Nucleated RBC Nucleated RBC % (auto) ESR PT 19.8 H INR 1.7 H APTT 26.7 Anion Gap 17 Estim Creat Clear Calc 69.0 Estimated GFR > 60 POC Glucose Random Glucose 217 H Lactic Acid Calcium 8.1 L Total Bilirubin 2.7 H Direct Bilirubin 1.3 H AST 11 ALT 23 Alkaline Phosphatase 91 C-Reactive Protein Total Protein 5.6 L Albumin 2.8 L COVID-19 (KATHLEEN) COVID-19 Clin Com <MITZI Crews - Last Filed: 09/11/22 10:58> Imaging Radiologist's Impressions: Impressions Foot X-Ray 09/08/22 11:16 IMPRESSION: 1. Soft tissue defect distally in the first digit with cortical deformity in the subjacent distal phalanx concerning for osteomyelitis. 2. Post surgical changes in the second digit without significant change. No definitive associated acute abnormality. 3. Mild to moderate soft tissue swelling. Abdomen/Pelvis CT 09/08/22 11:52 IMPRESSION: No significant abnormality. Fleischner guidelines were followed. <MITZI Crews - Last Filed: 09/11/22 10:58> Assessment and Plan (1) 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: Status: Acute <MITZI Crews - Last Filed: 09/11/22 10:58> (2) Cellulitis of left lower extremity: Status: Acute <MITZI Crews - Last Filed: 09/11/22 10:58> (3) Diabetic foot ulcer: Status: Acute <MITZI Crews - Last Filed: 09/11/22 10:58> 51-year-old female with pertinent history of asthma/COPD COPD, HFrEF, insulin- dependent diabetes mellitus with neuropathy, essential hypertension, PAD, NSTEMI, ischemic cardiomyopathy, and recent STEMI discharged from [facility] 08/27 s/p BARTOLOME to proximal LAD presents who is a current 0.5 pack per day smoker admitted for cellulitis LLE and osteomyelitis left great toe. #Osteomyelitis left great toe with cellulitis of the left lower extremity -Xray left foot showing soft tissue defect distally in the 1st digit with cortical deformity in the sub adjacent distal phalanx concerning for osteomyelitis -CRP 8, ESR 10 -IV vancomycin and Azactam (pcn allergy) (initiated 09/08) -appreciate ID input -appreciate vascular surgery input -leukocytosis 17, no other sirs criteria. No sepsis -follow CBC and blood cultures -pain management on pain scale # nonhealing stage II ulcerations of the feet bilaterally- related to diabetes and peripheral arterial disease -appreciate vascular surgery input -as above # CAD with recent STEMI s/p BARTOLOME to the proximal LAD/ischemic cardiomyopathy- no chest pain -DC from [facility] 08/31. 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 -continue atorvastatin 80 mg #PAD -lower extremity artery duplex on 06/21/2022 showing chronic total occlusion of the proximal mid superficial femoral artery with reconstituted flow in the popliteal artery and likely occlusion of the posterior tibial artery below the knee. Left leg with chronic total occlusion of the mid to superficial femoral artery with reconstituted flow in the popliteal artery -resume dual antiplatelet therapy. Continue statin -appreciate vascular surgery input #HFrEF -Significant edema BLE, anasarca and b/l pleural effusions on CT abd/pelvis -BNP pending -Noncompliance with furosemide 40md BID at home -Initiate furosemide 40 mg daily -strict I&O -cardiac diet # small pericardial effusion- noted on CT -asymptomatic. Limited echo ordered #Pulmonary nodule -1.5cm irregularly shaped nodule noted on ct abd/pelvis -Dedicated chest CT pending # uncontrolled type 2 diabetes with hyperglycemia -dose adjusted Lantus -Humalog on sliding scale -POC glucose -diabetic diet # hypertension-reasonably controlled -resume carvedilol 3.125 mg b.i.d. and furosemide -hold lisinopril at this time, resume if BP allows # iron deficiency anemia -H/H stable-above transfusion threshold -initiate ferrous sulfate # asthma/COPD overlap-without acute exacerbation -continue maintenance inhalers, albuterol p.r.n. # diabetic polyneuropathy -continue gabapentin #Cigarette smoker -Smoking 0.5ppd x 44 year (age 8 onset). 22pack year history -Declines NRT -smoking cessation counseling provided DVT prophylaxis-Lovenox Full code Patient requires inpatient stay of at least 2 midnights for management of cellulitis of the left lower extremity with osteomyelitis of the left toe complicated by peripheral artery disease and uncontrolled diabetes requiring IV antibiotics and expert consultation. <MITZI Crews - Last Filed: 09/11/22 10:58> Time Spent With Patient Time: Total time managing care of this patient today ____ minutes. <MITZI Crews - Last Filed: 09/11/22 10:58> Quality Stroke Does the patient have a stroke diagnosis?: No <Delta Umaña MD - Last Filed: 09/09/22 09:47> VTE Prior VTE?: No <Delta Umaña MD - Last Filed: 09/09/22 09:47> VTE Risk Level:: Medical - moderate - high <Delta Umaña MD - Last Filed: 09/09/22 09:47> VTE Device Contraindication: Treatment Not Indicated <Delta Umaña MD - Last Filed: 09/09/22 09:47> VTE Drug Contraindication: N/A - Med Ordered <Delta Umaña MD - Last Filed: 09/09/22 09:47>
[2022-09-08] MEDS: LORazepam 2 MG/ML VIAL 1 MG IVPUSH (15:19)
--- NOTE | 2022-09-08 16:04 | CA_ITS ---
Transthoracic Echocardiogram Patient (Last, First, Middle): Keisha Chadwick, Gender: Female Date of : 1970 Age: 52 Procedure Date: 09/08/2022 Procedure Type: Transthoracic Echocardiogram Location: ER Height: 160.02 cm Weight: 72.58 kg BSA: 1.76 m2 Heart Rate: bpm BP: 121 / 79 mmHg Stunner Animal: KUSHAL Referring MD: Jennifer CARTAGENA Symptoms: pericardial effusion on ct Study Quality: Fair ECG Rhythm: Sinus Conclusions: - The left ventricular systolic function is severely decreased. The visually estimated ejection fraction is between 10-15%. - There is a small loculated pericardial effusion overlying the right ventricle. Findings Left Ventricle The left ventricular systolic function is severely decreased. The visually estimated ejection fraction is between 10-15%. There is evidence of regional wall motion abnormalities. Wall Motion Rest Echo Findings The inferoseptal wall, the basal inferior, mid anterior, mid inferior, mid anteroseptal, and mid inferolateral segments are akinetic. Right Ventricle There is mildly decreased right ventricular systolic function. Tricuspid Valve There is mild tricuspid valve regurgitation. Mild pulmonary hypertension is present. Venous The inferior vena cava is dilated and does not collapse with inspiration. Pericardium/Pleural There is a small loculated pericardial effusion overlying the right ventricle. There are no definitive echocardiographic findings of tamponade physiology. Prior Study Comparison Changes noted compared to prior study dated: 06/20/2022. LVEF further lower. Measurements Right Ventricle TAPSE (mm): 14.70 TVS' Bryant: 10.80 Tricuspid Valve TR Pk Bryant: 2.85 TR Pk Grad: 32.00 RA Press: 15.00 RVSP: 47.00 Updated in Other Vendor System with Status of Final Chandana Dave MD electronically signed on 09/09/2022 9:05:46 AM with status of Final
[2022-09-08] MEDS: Enoxaparin Sodium 40 MG/0.4 ML SYRINGE SUBCUT (16:50)
[2022-09-08 16:59] LABS: B Type Natriuretic Peptide 2592 pg/mL (<100)
[2022-09-08 17:02] LABS: Glucose, Whole Blood 164 mg/dL (60-115)
[2022-09-08 17:35] LABS: Glucose, Whole Blood 175 mg/dL (60-115)
[2022-09-08] MEDS: Insulin Lispro 100 UNIT/ML 3 ML VIAL SUBCUT ×2 (18:25→21:09)
[2022-09-08 20:17] LABS: Glucose, Whole Blood 197 mg/dL (60-115)
[2022-09-08] MEDS: Gabapentin 300 MG CAPSULE 600 MG PO (21:05)
[2022-09-08] MEDS: Atorvastatin Calcium 80 MG TABLET PO (21:05)
[2022-09-08] MEDS: Montelukast Sodium 10 MG TABLET PO (21:05)
[2022-09-08] MEDS: Ticagrelor 90 MG TABLET PO (21:05)
[2022-09-08] MEDS: carvediloL 3.125 MG TABLET PO (21:05)
[2022-09-08] MEDS: Insulin Glargine,Hum.rec.anlog 100 UNIT/ML 10 ML VIAL 15 UNIT SUBCUT (21:09)
--- NOTE | 2022-09-08 21:13 | PHA.PROG ---
Admission Date/Time: September 08, 2022 15:16 Indication: BONE AND JOINT INFECTION Weight in k.5 kg Adjusted body weight in K.48 [place] body weight in K.4 Obesity Dosing Indication % IBW: 28.4 Serum Creatinine - Last 168 Hours 09/08/22 10:30 Creatinine 0.92 Estimated CrCl and GFR - Last 168 Hours 09/08/22 10:30 Estim Creat Clear Calc 69.0 Estimated GFR > 60 Vancomycin Loading Dose: 1750 MG Current Vancomycin Dosing Regimen: 1500 MG Q24 Vancomycin Monitoring using AUC goal of 400 - 600 range with trough as surrogate marker: EXPECTED AUC 429 AFTER 3RD DOSE. Date and Time for next Vancomycin Level to be drawn: 09/11@1100 Pharmacist Comments on Vancomycin Plan: PT IS NOT OBESE AND HAS GOOD RENAL FUNCTION. DAILY SCR LABS ENTERED AND TROUGH ENTERED FOR BEFORE 4TH DOSE. Vancomycin dosing will take advantage of [employer] as a clinical decision support tool that uses Bayesian modeling to calculate individual patient's pharmacokinetic parameters and forecast the patient's drug concentration time course with the target goal AUC 24 range of 400 - 600 mg/L/hr.
[2022-09-08] MEDS: Albuterol Sulfate (0.083%) 2.5 MG/3 ML VIAL.NEB INHALE (21:50)
[2022-09-08 22:20] LABS: Glucose, Whole Blood 154 mg/dL (60-115)
[2022-09-08] MEDS: cefEPime HCl 2 GM in 0.9 % Sodium Chloride 50 ML IV (22:45)
[2022-09-08] MEDS: Furosemide 40 MG/4 ML VIAL IVPUSH (23:07)
[2022-09-09] VITALS (8 sets, daily range): BP systolic 96–136; BP diastolic 54–83; PULSE 70–97; RESP 16–18; TEMP 36.1–36.8; O2SAT 93–100
[2022-09-09] MEDS: oxyCODONE HCl Immed Release 5 MG TABLET PO ×3 (04:08→19:51)
[2022-09-09] MEDS: cefEPime HCl 2 GM in 0.9 % Sodium Chloride 50 ML IV ×3 (05:42→21:38)
[2022-09-09 07:10] LABS: Glucose, Whole Blood 65 mg/dL (60-115)
--- NOTE | 2022-09-09 09:30 | MHC.CLN ---
NUTRITION CONSULT FOR WEIGHT LOSS PER POLICY. REVIEW OF WEIGHT HX SHOWS WEIGHT LOSS X 1 YEAR -5.4%, NOT SIGNIFICANT, COMPARES 09/03/21 WEIGHT=76.66 KG TO 09/08/22 WEIGHT=72.5 KG. LEFT HEEL WITH DM ULCER. NO ADDITIONAL NUTRITION INTERVENTIONS A THIS TIME.
--- NOTE | 2022-09-09 09:31 | PM.CNGS ---
History of Present Illness Consult details Consult date: 09/09/22 Narrative: Very complex 52-year-old female presents for evaluation regarding nonhealing bilateral foot ulcerations. They have been present for a significant period of time. She has a extensive medical history inclusive of COPD pulmonary edema with left-sided heart failure kidney injury and most recently a non STEMI. She presented to the hospital for abdominal bruising and continued bilateral lower extremity foot pain. Of note she has been seen by the general surgery team in the past. She now presents to us for vascular evaluation. Review of Systems Review of Systems: Yes all other systems are reviewed and are negative Constitutional: Constitutional: Reports no additional constitutional complaints ENT: Reports Normal hearing present Cardiovascular: Cardiovascular: Denies chest pain, Denies chest pain at rest, Denies chest pain with activity and Denies pedal edema Respiratory: Respiratory: Denies cough Gastrointestinal: Gastrointestinal: Denies abdominal pain Musculoskeletal: Musculoskeletal: Denies abnormal gait, Denies muscle cramps and Denies radiating pain into limb Integumentary/Breasts: Skin/Breast: Denies skin ulcer and Denies wounds Neurologic: Reports Normal hearing present and Denies abnormal gait Psychiatric: Psychiatric: Reports no additional psychiatric complaints [facility] Past Medical History Medical History (Updated 09/08/22 @ 16:29 by MITZI Campbell) Asthma Atherosclerotic cardiovascular disease Atrial tachycardia COPD (chronic obstructive pulmonary disease) COVID-19 vaccine series completed Diabetes Diabetic toe ulcer Essential hypertension GERD (gastroesophageal reflux disease) Hypertension Left against medical advice Osteomyelitis PAD (peripheral artery disease) Family History Family History Mother Hx of CABG Sister CAD (coronary artery disease) Surgical History Surgical History History of esophagogastroduodenoscopy (EGD) History of toe surgery (09/22/21) Social History Social History Household Members: None Housing: Apartment Do you presently have visiting nurse or other home services: No Unable to assess alcohol history related to: Refusing to respond Alcohol intake: never Patient Tobacco Use Status: Current everyday Tobacco user Tobacco use type: Cigarette Cigarette Packs Per Day: 0.5 Cigarettes Per Day: 10.0 Years Smoked: 43 Smoked in Last 30 Days: Yes e-Cigarette/Vaping Use: Currently Using Patient Interested in Nicotine Replacement: No Patient Given Instructions on How to Stop Smoking: Yes Date Education Initiated: 09/08/22 Second Hand Smoke Exposure: Yes Use of substances other than those prescribed or required for medical reasons: No Currently Displaying Signs/Symptoms of Drug Intoxication Withdrawal: No Have you been hit, kicked, punched, or otherwise hurt by someone within the past year? If so, by whom?: No Do you feel safe in your current relationship?: Yes Is there a partner from a previous relationship who is making you feel unsafe now?: No Are you made to feel afraid or neglected: No Advance Directives: Yes Advance Directives on File: Yes Advance Directives Date on File: 12/28/20 Do you have thoughts of harming others: None Do you have a plan to hurt others: No Plan Recently lost weight without trying: Yes How much weight loss: Unsure Eating poorly because of decreased appetite: No Nutrition screen score: 4 Nutrition Risks: No Nutritional Risk Patient : No : No Poor oral hygiene: No service: No Current occupational status: disabled Meds Allergies Allergy/AdvReac Type Severity Reaction Status Date / Time Penicillins [PENICILLINS] Allergy Severe RASH Verified 08/27/22 17:42 amoxicillin [AMOXICILLIN] Allergy Intermediate HIVES Verified 08/27/22 17:42 codeine Allergy Itching Verified 08/27/22 17:42 Active Medications: Current Medications Acetaminophen (Acetaminophen 325 Mg Tablet) 650 mg PO Q6H PRN PRN Reason: Pain, Mild (Pain Scale 1-3) Albuterol Sulfate (Albuterol Sulfate (0.083%) 2.5 Mg/3 Ml Vial.Neb) 2.5 mg INHALE RQ6H PRN PRN Reason: Wheezing Last Admin: 09/08/22 21:50 Dose: 2.5 mg Albuterol Sulfate (Albuterol Sulfate 90 Mcg 8 Gm Inhaler) 2 puff INHALE Q4H PRN PRN Reason: Wheezing Ascorbic Acid (Ascorbic Acid 250 Mg Tablet) 250 mg PO DAILY MÓNICA Aspirin (Aspirin Enteric Coated 81 Mg Tablet.) 81 mg PO DAILY MÓNICA Atorvastatin Calcium (Atorvastatin Calcium 80 Mg Tablet) 80 mg PO BEDTIME MÓNICA Last Admin: 09/08/22 21:05 Dose: 80 mg Carvedilol (Carvedilol 3.125 Mg Tablet) 3.125 mg PO BID [facility]; Protocol Last Admin: 09/08/22 21:05 Dose: 3.125 mg Docusate Sodium (Docusate Sodium 100 Mg Capsule) 100 mg PO DAILY PRN PRN Reason: Constipation Enoxaparin Sodium (Enoxaparin Sodium 40 Mg/0.4 Ml Syringe) 40 mg SUBCUT Q24H [facility] Last Admin: 09/08/22 16:50 Dose: 40 mg Ferrous Sulfate (Ferrous Sulfate 324 Mg Tablet.Dr) 324 mg PO DAILY [facility] Furosemide (Furosemide 40 Mg/4 Ml Vial) 40 mg IVPUSH DAILY [facility]; Protocol Gabapentin (Gabapentin 300 Mg Capsule) 600 mg PO BID [facility] Last Admin: 09/08/22 21:05 Dose: 600 mg Glucose (Glucose Gel 15 Gm Gel..Gram.) 15 gm PO Q15M PRN; Protocol PRN Reason: per Hypoglycemia Standing Ord. Aztreonam 2 gm/ Sodium (Chloride) 50 mls @ 100 mls/hr IV Q8H [facility] Last Infusion: 09/09/22 04:55 Dose: Infused Dextrose (D10) 250 mls @ 750 mls/hr IV Q15M PRN; Protocol PRN Reason: per Hypoglycemia Standing Ord. Vancomycin HCl 1,500 mg/ (Sodium Chloride) 500 mls @ 333.333 mls/hr IV Q24H [facility] Cefepime HCl 2 gm/ Sodium (Chloride) 50 mls @ 100 mls/hr IV Q8H [facility] Last Infusion: 09/09/22 06:11 Dose: Infused Insulin Glargine (Insulin Glargine,Hum.Rec.Anlog 100 Unit/Ml 10 Ml Vial) 15 unit SUBCUT BID [facility] Last Admin: 09/08/22 21:09 Dose: 15 unit Insulin Human Lispro (Insulin Lispro 100 Unit/Ml 3 Ml Vial) 0 unit SUBCUT QIDACHS [facility]; Protocol Last Admin: 09/09/22 07:36 Dose: Not Given Montelukast Sodium (Montelukast Sodium 10 Mg Tablet) 10 mg PO BEDTIME [facility] Last Admin: 09/08/22 21:05 Dose: 10 mg Morphine Sulfate (Morphine Sulfate 4 Mg/Ml Cartridge) 4 mg IVPUSH Q4H PRN; Protocol PRN Reason: Pain, Severe (Pain Scale 7-10) Non-Formulary Medication (Umeclidinium [Incruse Ellipta]) 1 puff PO DAILY [facility] Ondansetron HCl (Ondansetron Hcl 4 Mg/2 Ml Vial) 4 mg IVPUSH Q8H PRN PRN Reason: Nausea and Vomiting Oxycodone HCl (Oxycodone Hcl Immed Release 5 Mg Tablet) 5 mg PO Q6H PRN PRN Reason: Pain, Moderate (Pain Scale 4-6 Last Admin: 09/09/22 04:08 Dose: 5 mg Pharmacy Consult (Consult Rx Perform Med Rec) 1 each MISCELLANE ONCE PRN PRN Reason: Consult order Pharmacy Consult (Consult Rx Vancomycin Dosing) 1 each MISCELLANE DAILY PRN PRN Reason: Consult order Sodium Chloride (0.9 % Sodium Chloride Flush 3 Ml Syringe) 3 ml IVFLUSH QSHIFT [facility] Last Admin: 09/08/22 23:12 Dose: Not Given Ticagrelor (Ticagrelor 90 Mg Tablet) 90 mg PO BID [facility] Last Admin: 09/08/22 21:05 Dose: 90 mg Home Medications Medication Instructions Recorded Confirmed Last Taken Type aspirin 81 mg tablet,delayed 1 tab PO DAILY 12/24/20 09/08/22 09/07/22 History release umeclidinium 62.5 mcg/actuation 1 puff PO DAILY 10/31/21 09/08/22 09/07/22 History blister powder for inhalation (Incruse Ellipta) montelukast 10 mg tablet 1 tab PO BEDTIME 02/13/22 09/08/22 09/07/22 History insulin glargine 100 unit/mL (3 20 unit subcut BID 03/23/22 09/08/22 09/07/22 History mL) subcutaneous pen (Lantus Solostar U-100 Insulin) atorvastatin 80 mg tablet 80 mg PO BEDTIME 05/01/22 09/08/22 09/07/22 History gabapentin 300 mg capsule 2 cap PO BID 05/01/22 09/08/22 09/07/22 History albuterol sulfate 2.5 mg/3 mL 1 vial inhalation Q6H PRN Wheezing 06/19/22 09/08/22 09/07/22 History (0.083 %) solution for nebulization albuterol sulfate 90 mcg/actuation 1 - 2 puff inhalation Q4-6H PRN 06/19/22 09/08/22 09/07/22 History aerosol inhaler (Ventolin HFA) Wheezing lisinopril 20 mg tablet 20 mg PO DAILY 09/08/22 09/08/22 09/07/22 History Physical Exam Vital Signs: Vital Signs: Last Vital Signs Temp 97 F 09/09/22 06:57 Pulse 94 09/09/22 06:57 Resp 18 09/09/22 06:57 BP 123/79 09/09/22 06:57 Pulse Ox 98 09/09/22 06:57 O2 Del Method Room Air 09/09/22 06:57 BMI result Body Mass Index 28.3 Const: General: cooperative, healthy appearing and comfortable Orientation/consciousness: oriented to person, oriented to place and oriented to time HEENT: Head: Yes normal to inspection Neck: Neck: Yes normal visual inspection Carotids: no bruits Chest: Chest palpation & inspection: normal inspection of the chest Resp: Effort & Inspection: normal respiratory effort and able to speak in complete sentences Auscultation: clear to auscultation bilaterally, no crackles, no rales, no rhonchi and no wheezes Cardio: Rate: regular rate Rhythm: regular rhythm Heart sounds: S1 normal heart sound present and S2 normal heart sound present Bruits: no carotid bruits Peripheral pulses: Peripheral pulses 2+ throughout GI: Inspection: Yes normal to inspection Skin: Other: Left foot nonhealing great toe ulcer deep fissure in the plantar aspect of the foot and a fissure on the lateral aspect both dry and callused over Right foot plantar hardened fissure with callus. Wounds: no wounds Hair: normal Neuro: General: oriented to person, oriented to place and oriented to time Cranial nerves: Yes CN's II-XII intact bilaterally and Yes Normal hearing present Cognition (Neuro): normal cognition Motor exam (neuro): 5/5 motor strength present throughout Extrem: Other: venous exam: No significant superficial varicosities or spider telangiectasias, minimal edema General: No clubbing, No cyanosis and No edema Psych: Appearance: grossly normal Mental Status: mental status grossly normal Speech and movement: Normal speech and movement present Results Labs 09/08/22 10:30 09/08/22 10:30 Labs: Abnormal lab results 09/08/22 09/08/22 09/08/22 Range/Units 09:44 10:29 10:30 WBC 17.7 H (4.8-10.8) X10*3/uL Hgb 9.4 L (12.0-16.0) g/dl Hct 32.1 L (37.0-47.0) % MCV 67.0 L (80.0-98.0) fL MCH 19.6 L (27.0-33.0) pg MCHC 29.3 L (31.0-35.0) g/dl RDW 21.0 H (11.0-16.0) % Immature Gran % (Auto) 0.7 H (0.0-0.4) % Neut % (Auto) 88.4 H (45-73) % Lymph % (Auto) 5.8 L (20-40) % Lymph # (Auto) 1.0 L (1.2-4.9) X10*3/uL Abs Immat Gran (auto) 0.12 H (0.00-0.03) X10*3/uL Absolute Neuts (auto) 15.6 H (2.0-8.3) x10*3/uL Absolute Nucleated RBC 0.030 H (0.0-0.012) X10*3/uL PT (10.0-13.1) SEC INR (0.9-1.1) POC Glucose 230 H (60-115) mg/dL Random Glucose (60-115) mg/dL Calcium (8.4-10.2) mg/dL Total Bilirubin (0.0-1.0) mg/dL Direct Bilirubin (0.0-0.5) mg/dL C-Reactive Protein 8.95 H (< or = 0.50) mg/dL B-Natriuretic Peptide (<100) pg/mL Total Protein (6.5-8.0) g/dL Albumin (3.5-5.0) g/dL 09/08/22 09/08/22 09/08/22 Range/Units 10:30 10:30 16:10 WBC (4.8-10.8) X10*3/uL Hgb (12.0-16.0) g/dl Hct (37.0-47.0) % MCV (80.0-98.0) fL MCH (27.0-33.0) pg MCHC (31.0-35.0) g/dl RDW (11.0-16.0) % Immature Gran % (Auto) (0.0-0.4) % Neut % (Auto) (45-73) % Lymph % (Auto) (20-40) % Lymph # (Auto) (1.2-4.9) X10*3/uL Abs Immat Gran (auto) (0.00-0.03) X10*3/uL Absolute Neuts (auto) (2.0-8.3) x10*3/uL Absolute Nucleated RBC (0.0-0.012) X10*3/uL PT 19.8 H (10.0-13.1) SEC INR 1.7 H (0.9-1.1) POC Glucose (60-115) mg/dL Random Glucose 217 H (60-115) mg/dL Calcium 8.1 L (8.4-10.2) mg/dL Total Bilirubin 2.7 H (0.0-1.0) mg/dL Direct Bilirubin 1.3 H (0.0-0.5) mg/dL C-Reactive Protein (< or = 0.50) mg/dL B-Natriuretic Peptide 2592 H (<100) pg/mL Total Protein 5.6 L (6.5-8.0) g/dL Albumin 2.8 L (3.5-5.0) g/dL 09/08/22 09/08/22 09/08/22 Range/Units 16:56 17:32 20:13 WBC (4.8-10.8) X10*3/uL Hgb (12.0-16.0) g/dl Hct (37.0-47.0) % MCV (80.0-98.0) fL MCH (27.0-33.0) pg MCHC (31.0-35.0) g/dl RDW (11.0-16.0) % Immature Gran % (Auto) (0.0-0.4) % Neut % (Auto) (45-73) % Lymph % (Auto) (20-40) % Lymph # (Auto) (1.2-4.9) X10*3/uL Abs Immat Gran (auto) (0.00-0.03) X10*3/uL Absolute Neuts (auto) (2.0-8.3) x10*3/uL Absolute Nucleated RBC (0.0-0.012) X10*3/uL PT (10.0-13.1) SEC INR (0.9-1.1) POC Glucose 164 H 175 H 197 H (60-115) mg/dL Random Glucose (60-115) mg/dL Calcium (8.4-10.2) mg/dL Total Bilirubin (0.0-1.0) mg/dL Direct Bilirubin (0.0-0.5) mg/dL C-Reactive Protein (< or = 0.50) mg/dL B-Natriuretic Peptide (<100) pg/mL Total Protein (6.5-8.0) g/dL Albumin (3.5-5.0) g/dL 09/08/22 Range/Units 22:02 WBC (4.8-10.8) X10*3/uL Hgb (12.0-16.0) g/dl Hct (37.0-47.0) % MCV (80.0-98.0) fL MCH (27.0-33.0) pg MCHC (31.0-35.0) g/dl RDW (11.0-16.0) % Immature Gran % (Auto) (0.0-0.4) % Neut % (Auto) (45-73) % Lymph % (Auto) (20-40) % Lymph # (Auto) (1.2-4.9) X10*3/uL Abs Immat Gran (auto) (0.00-0.03) X10*3/uL Absolute Neuts (auto) (2.0-8.3) x10*3/uL Absolute Nucleated RBC (0.0-0.012) X10*3/uL PT (10.0-13.1) SEC INR (0.9-1.1) POC Glucose 154 H (60-115) mg/dL Random Glucose (60-115) mg/dL Calcium (8.4-10.2) mg/dL Total Bilirubin (0.0-1.0) mg/dL Direct Bilirubin (0.0-0.5) mg/dL C-Reactive Protein (< or = 0.50) mg/dL B-Natriuretic Peptide (<100) pg/mL Total Protein (6.5-8.0) g/dL Albumin (3.5-5.0) g/dL Short CBC 09/08/22 Range/Units 10:30 WBC 17.7 H (4.8-10.8) X10*3/uL Hgb 9.4 L (12.0-16.0) g/dl Hct 32.1 L (37.0-47.0) % Plt Count 249 (160-400) X10*3/uL BMP 09/08/22 10:30 Sodium 137 Potassium 3.7 Chloride 99 Carbon Dioxide 25 BUN 14 Creatinine 0.92 Calcium 8.1 L Liver Function 09/08/22 Range/Units 10:30 Total Bilirubin 2.7 H (0.0-1.0) mg/dL Direct Bilirubin 1.3 H (0.0-0.5) mg/dL AST 11 (5-31) U/L ALT 23 (0-31) U/L Alkaline Phosphatase 91 (39-117) U/L Albumin 2.8 L (3.5-5.0) g/dL All other labs normal. Imaging Additional studies: Arterial ultrasound from June of 2022 demonstrates bilateral SFA occlusions. Assessment and Plan (1) PAD (peripheral artery disease): Status: Acute Plan In short this is a very complex 52-year-old female with nonhealing foot ulcers. She has multiple medical comorbidities. At the current time they do not appear infected. There clean. Would recommend local wound care and pain control as tolerated. I do not believe she is a candidate for any intervention. Unclear etiology of elevated white count. She does have bilateral small pleural effusions and pericardial effusion. The feet do not look overtly infected. Once again would like to manage this as conservatively as possible as she is not a candidate for any major vascular intervention. The only thing that I would offer her should this become infected or source of concern would be an amputation. Thank you for allowing us to assist in her care. If there are any questions or concerns please do not hesitate to contact us. Time Spent With Patient Time: Total time managing care of this patient today ____ minutes. Procedures Date of Service Date of Service: 09/09/22
--- NOTE | 2022-09-09 09:35 | P.PNIM_ITS ---
Subjective Subjective Date of Service: 09/09/22 Interval History: f/u on osteomylitis has pain in the foot Physical Exam Vital Signs: Vital Signs: Last Vital Signs Temp 97.3 F 09/09/22 08:00 Pulse 97 09/09/22 08:00 Resp 16 09/09/22 08:00 BP 123/76 09/09/22 08:00 Pulse Ox 100 09/09/22 08:00 O2 Del Method Room Air 09/09/22 08:00 BMI result Body Mass Index 28.3 Const: Other: General: AO X 3, no acute distress Resp: CTA bilateral CVS: S1,S2,RRR GI: +BS, NT, no distention Skin: No rash--see pictures Neuro: motor grossly intact Psych: appropriate affect HEENT: Other: GI: Other: Objective Data Active Medications Acetaminophen (Acetaminophen 325 Mg Tablet) 650 mg PO Q6H PRN PRN Reason: Pain, Mild (Pain Scale 1-3) Albuterol Sulfate (Albuterol Sulfate (0.083%) 2.5 Mg/3 Ml Vial.Chang) 2.5 mg INHALE RQ6H PRN PRN Reason: Wheezing Last Admin: 09/08/22 21:50 Dose: 2.5 mg Documented By: SKYE Albuterol Sulfate (Albuterol Sulfate 90 Mcg 8 Gm Inhaler) 2 puff INHALE Q4H PRN PRN Reason: Wheezing Ascorbic Acid (Ascorbic Acid 250 Mg Tablet) 250 mg PO DAILY [facility] Aspirin (Aspirin Enteric Coated 81 Mg Tablet.) 81 mg PO DAILY [facility] Atorvastatin Calcium (Atorvastatin Calcium 80 Mg Tablet) 80 mg PO BEDTIME [facility] Last Admin: 09/08/22 21:05 Dose: 80 mg Documented By: NO Carvedilol (Carvedilol 3.125 Mg Tablet) 3.125 mg PO BID [facility]; Protocol Last Admin: 09/08/22 21:05 Dose: 3.125 mg Documented By: NO Docusate Sodium (Docusate Sodium 100 Mg Capsule) 100 mg PO DAILY PRN PRN Reason: Constipation Enoxaparin Sodium (Enoxaparin Sodium 40 Mg/0.4 Ml Syringe) 40 mg SUBCUT Q24H [facility] Last Admin: 09/08/22 16:50 Dose: 40 mg Documented By: ZELALEM Ferrous Sulfate (Ferrous Sulfate 324 Mg Tablet.Dr) 324 mg PO DAILY [facility] Furosemide (Furosemide 40 Mg/4 Ml Vial) 40 mg IVPUSH DAILY [facility]; Protocol Gabapentin (Gabapentin 300 Mg Capsule) 600 mg PO BID [facility] Last Admin: 09/08/22 21:05 Dose: 600 mg Documented By: NO Glucose (Glucose Gel 15 Gm Gel..Gram.) 15 gm PO Q15M PRN; Protocol PRN Reason: per Hypoglycemia Standing Ord. Aztreonam 2 gm/ Sodium (Chloride) 50 mls @ 100 mls/hr IV Q8H [facility] Last Infusion: 09/09/22 04:55 Dose: 0 mls/hr Documented By: NO Dextrose (D10) 250 mls @ 750 mls/hr IV Q15M PRN; Protocol PRN Reason: per Hypoglycemia Standing Ord. Vancomycin HCl 1,500 mg/ (Sodium Chloride) 500 mls @ 333.333 mls/hr IV Q24H [facility] Cefepime HCl 2 gm/ Sodium (Chloride) 50 mls @ 100 mls/hr IV Q8H [facility] Last Infusion: 09/09/22 06:11 Dose: 0 mls/hr Documented By: NO Insulin Glargine (Insulin Glargine,Hum.Rec.Anlog 100 Unit/Ml 10 Ml Vial) 15 unit SUBCUT BID [facility] Last Admin: 09/08/22 21:09 Dose: 15 unit Documented By: NO Insulin Human Lispro (Insulin Lispro 100 Unit/Ml 3 Ml Vial) 0 unit SUBCUT QIDACHS [facility]; Protocol Last Admin: 09/09/22 07:36 Dose: Not Given Documented By: RUPERT Non-Admin Reason: No Insulin Coverage Montelukast Sodium (Montelukast Sodium 10 Mg Tablet) 10 mg PO BEDTIME [facility] Last Admin: 09/08/22 21:05 Dose: 10 mg Documented By: NO Morphine Sulfate (Morphine Sulfate 4 Mg/Ml Cartridge) 4 mg IVPUSH Q4H PRN; Protocol PRN Reason: Pain, Severe (Pain Scale 7-10) Non-Formulary Medication (Umeclidinium [Incruse Ellipta]) 1 puff PO DAILY [facility] Ondansetron HCl (Ondansetron Hcl 4 Mg/2 Ml Vial) 4 mg IVPUSH Q8H PRN PRN Reason: Nausea and Vomiting Oxycodone HCl (Oxycodone Hcl Immed Release 5 Mg Tablet) 5 mg PO Q6H PRN PRN Reason: Pain, Moderate (Pain Scale 4-6 Last Admin: 09/09/22 04:08 Dose: 5 mg Documented By: TRE Pharmacy Consult (Consult Rx Perform Med Rec) 1 each MISCELLANE ONCE PRN PRN Reason: Consult order Pharmacy Consult (Consult Rx Vancomycin Dosing) 1 each MISCELLANE DAILY PRN PRN Reason: Consult order Sodium Chloride (0.9 % Sodium Chloride Flush 3 Ml Syringe) 3 ml IVFLUSH QSHIFT [facility] Last Admin: 09/08/22 23:12 Dose: Not Given Documented By: NO Non-Admin Reason: IV Running Ticagrelor (Ticagrelor 90 Mg Tablet) 90 mg PO BID [facility] Last Admin: 09/08/22 21:05 Dose: 90 mg Documented By: NO Labs 09/08/22 10:30 09/08/22 10:30 Labs: Laboratory Results - last 24 hr 09/08/22 09/08/22 09/08/22 09:44 10:14 10:29 MCV MCH MCHC RDW Plt Count MPV Immature Gran % (Auto) Neut % (Auto) Lymph % (Auto) Mayes % (Auto) Eos % (Auto) Baso % (Auto) Lymph # (Auto) Mayes # (Auto) Eos # (Auto) Baso # (Auto) Abs Immat Gran (auto) Absolute Neuts (auto) Absolute Nucleated RBC Nucleated RBC % (auto) ESR 10 PT INR APTT Anion Gap Estim Creat Clear Calc Estimated GFR POC Glucose 230 H Random Glucose Lactic Acid 2.0 Calcium Total Bilirubin Direct Bilirubin AST ALT Alkaline Phosphatase C-Reactive Protein B-Natriuretic Peptide Total Protein Albumin COVID-19 (KATHLEEN) COVID-19 Clin Com 09/08/22 09/08/22 09/08/22 10:29 10:29 10:30 MCV 67.0 L MCH 19.6 L MCHC 29.3 L RDW 21.0 H Plt Count 249 MPV Not Reportable Immature Gran % (Auto) 0.7 H Neut % (Auto) 88.4 H Lymph % (Auto) 5.8 L Mayes % (Auto) 4.6 Eos % (Auto) 0.3 Baso % (Auto) 0.2 Lymph # (Auto) 1.0 L Mayes # (Auto) 0.8 Eos # (Auto) 0.1 Baso # (Auto) 0.0 Abs Immat Gran (auto) 0.12 H Absolute Neuts (auto) 15.6 H Absolute Nucleated RBC 0.030 H Nucleated RBC % (auto) 0.2 ESR PT INR APTT Anion Gap Estim Creat Clear Calc Estimated GFR POC Glucose Random Glucose Lactic Acid Calcium Total Bilirubin Direct Bilirubin AST ALT Alkaline Phosphatase C-Reactive Protein 8.95 H B-Natriuretic Peptide Total Protein Albumin COVID-19 (KATHLEEN) Negative COVID-19 Clin Com See Note 09/08/22 09/08/22 09/08/22 10:30 10:30 16:10 MCV MCH MCHC RDW Plt Count MPV Immature Gran % (Auto) Neut % (Auto) Lymph % (Auto) Mayes % (Auto) Eos % (Auto) Baso % (Auto) Lymph # (Auto) Mayes # (Auto) Eos # (Auto) Baso # (Auto) Abs Immat Gran (auto) Absolute Neuts (auto) Absolute Nucleated RBC Nucleated RBC % (auto) ESR PT 19.8 H INR 1.7 H APTT 26.7 Anion Gap 17 Estim Creat Clear Calc 69.0 Estimated GFR > 60 POC Glucose Random Glucose 217 H Lactic Acid Calcium 8.1 L Total Bilirubin 2.7 H Direct Bilirubin 1.3 H AST 11 ALT 23 Alkaline Phosphatase 91 C-Reactive Protein B-Natriuretic Peptide 2592 H Total Protein 5.6 L Albumin 2.8 L COVID-19 (KATHLEEN) COVID-19 Clin Com 09/08/22 09/08/22 09/08/22 16:56 17:32 20:13 MCV MCH MCHC RDW Plt Count MPV Immature Gran % (Auto) Neut % (Auto) Lymph % (Auto) Mayes % (Auto) Eos % (Auto) Baso % (Auto) Lymph # (Auto) Mayes # (Auto) Eos # (Auto) Baso # (Auto) Abs Immat Gran (auto) Absolute Neuts (auto) Absolute Nucleated RBC Nucleated RBC % (auto) ESR PT INR APTT Anion Gap Estim Creat Clear Calc Estimated GFR POC Glucose 164 H 175 H 197 H Random Glucose Lactic Acid Calcium Total Bilirubin Direct Bilirubin AST ALT Alkaline Phosphatase C-Reactive Protein B-Natriuretic Peptide Total Protein Albumin COVID-19 (KATHLEEN) COVID-19 Clin Com 09/08/22 09/09/22 22:02 06:57 MCV MCH MCHC RDW Plt Count MPV Immature Gran % (Auto) Neut % (Auto) Lymph % (Auto) Mayes % (Auto) Eos % (Auto) Baso % (Auto) Lymph # (Auto) Mayes # (Auto) Eos # (Auto) Baso # (Auto) Abs Immat Gran (auto) Absolute Neuts (auto) Absolute Nucleated RBC Nucleated RBC % (auto) ESR PT INR APTT Anion Gap Estim Creat Clear Calc Estimated GFR POC Glucose 154 H 65 Random Glucose Lactic Acid Calcium Total Bilirubin Direct Bilirubin AST ALT Alkaline Phosphatase C-Reactive Protein B-Natriuretic Peptide Total Protein Albumin COVID-19 (KATHLEEN) COVID-19 Clin Com Assessment and Plan (1) 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: Status: Acute Plan 51-year-old female with pertinent history of asthma/COPD COPD, HFrEF, insulin- dependent diabetes mellitus with neuropathy, essential hypertension, PAD, NSTEMI, ischemic cardiomyopathy, and recent STEMI discharged from [facility] 08/27 s/p BARTOLOME to proximal LAD presents who is a current 0.5 pack per day smoker admitted for cellulitis LLE and osteomyelitis left great toe. #Osteomyelitis left great toe with cellulitis of the left lower extremity -IV Abx (Vanco and Cefepime) from 09/08/20 # nonhealing stage II ulcerations of the feet bilaterally- related to diabetes and peripheral arterial disease -seen by vascular # CAD with recent STEMI s/p BARTOLOME to the proximal LAD/ischemic cardiomyopathy- no chest pain -DC from [facility] 08/31. Has been noncompliant with dual antiplatelet therapy, beta-connor, and furosemide -Per [facility] DC Summary- patient with multi-vessel disease-RCA [employer] with collaterals left to right, 80-90% stenosis in mild circumferential proximal to OM2, 30% stenosis in OM 1; 90% stenosis in LAD and 30% stenosis in D1 -continue brilinta and aspirin continue carvedilol 3.125 mg b.i.d. -continue atorvastatin 80 mg #PAD--antiplatlets and statin #HFrEF -Significant edema BLE, anasarca and b/l pleural effusions on CT abd/pelvis -BNP pending -Noncompliance with furosemide 40md BID at home -Initiate furosemide 40 mg daily -strict I&O -cardiac diet # small pericardial effusion- noted on CT -asymptomatic. Limited echo ordered #Pulmonary nodule -1.5cm irregularly shaped nodule noted on ct abd/pelvis -Dedicated chest CT pending # uncontrolled type 2 diabetes with hyperglycemia -dose adjusted Lantus -Humalog on sliding scale -POC glucose -diabetic diet # hypertension-reasonably controlled -continue carvedilol 3.125 mg b.i.d. and furosemide -hold lisinopril at this time, resume if BP allows # iron deficiency anemia -H/H stable-above transfusion threshold -initiate ferrous sulfate # asthma/COPD overlap-without acute exacerbation -continue maintenance inhalers, albuterol p.r.n. # diabetic polyneuropathy -continue gabapentin #Cigarette smoker -Smoking 0.5ppd x 45 year (age 8 onset). 22pack year history -Declines NRT -smoking cessation counseling provided DVT prophylaxis-Lovenox Full code Need for inpatient: osteomylitis of foot Time Spent With Patient Time: Total time managing care of this patient today ____ minutes. Quality Stroke Does the patient have a stroke diagnosis?: No VTE Prior VTE?: No VTE Risk Level:: Medical - moderate - high VTE Device Contraindication: Treatment Not Indicated VTE Drug Contraindication: N/A - Med Ordered
[2022-09-09] MEDS: carvediloL 3.125 MG TABLET PO ×2 (09:54→20:58)
[2022-09-09] MEDS: Aspirin Enteric Coated 81 MG TABLET.DR PO (09:54)
[2022-09-09] MEDS: Gabapentin 300 MG CAPSULE 600 MG PO ×2 (09:54→20:59)
[2022-09-09] MEDS: Ticagrelor 90 MG TABLET PO ×2 (09:54→20:59)
[2022-09-09] MEDS: Ferrous Sulfate 324 MG TABLET.DR PO (09:55)
[2022-09-09] MEDS: Insulin Glargine,Hum.rec.anlog 100 UNIT/ML 10 ML VIAL 15 UNIT SUBCUT ×2 (09:55→20:59)
[2022-09-09] MEDS: Ascorbic Acid 250 MG TABLET PO (09:55)
[2022-09-09 10:15] LABS: MANUAL DIFF FLAG NO
[2022-09-09 10:28] LABS: Basophils Absolute Auto 0.1 X10*3/uL (0.0-0.2); Basophils Percent Auto 0.3 % (0-2); Eosinophils Absolute Auto 0.1 X10*3/uL (0.0-0.4); Eosinophils Percent Auto 0.6 % (0-4); Hematocrit 32.8 % (37.0-47.0); Hemoglobin 9.5 g/dl (12.0-16.0); Imm Gran Abs Auto 0.09 X10*3/uL (0.00-0.03); Imm Gran Pct Auto 0.6 % (0.0-0.4); Lymphocytes Absolute Auto 1.4 X10*3/uL (1.2-4.9); Lymphocytes Percent Auto 9.1 % (20-40); Mean Corpuscular Hemoglobin 19.6 pg (27.0-33.0); Mean Corpuscular Volume 67.8 fL (80.0-98.0); Monocytes Absolute Auto 1.1 X10*3/uL (0.1-1.2); NRBC Pct Auto 0.2 /100WBC (0.0-0.2); Neutrophils Absolute Auto 12.6 x10*3/uL (2.0-8.3); Neutrophils Percent Auto 82.4 % (45-73); Platelet Count 219 X10*3/uL (160-400); Red Blood Count 4.84 X10*6/uL (4.20-5.50); Red Cell Distribution Width 21.2 % (11.0-16.0); White Blood Count 15.3 X10*3/uL (4.8-10.8)
[2022-09-09] MEDS: Furosemide 40 MG/4 ML VIAL IVPUSH (10:30)
[2022-09-09] MEDS: 0.9 % Sodium Chloride Flush 3 ML SYRINGE IVFLUSH (10:31)
[2022-09-09 10:42] LABS: Anion Gap 13 (12-20); Blood Urea Nitrogen 16 mg/dL (9-16); Carbon Dioxide 31 mmol/L (22-29); Chloride 98 mmol/L (96-108); Creatinine Clr Calc Pharmacy 64.8; Estimated Glomerular Filt Rate 60; Glucose Random 105 mg/dL (60-115); Sodium 138 mmol/L (135-145)
[2022-09-09 11:22] LABS: Glucose, Whole Blood 157 mg/dL (60-115)
--- NOTE | 2022-09-09 11:22 | PC.NURSE ---
Reported to MD Vivas Pt intermittently drowsy through out morning, at times pt dosing off mid conversation, o2 98% RA. Moods labile, pt yelling at staff and removing chair alarm tab at tines, pt educated on fall risk policy. All safety measures in place, call pires in each.
[2022-09-09] MEDS: vancomycin HCL 1,500 MG in 0.9 % Sodium Chloride 500 ML 333.33 MG IV (12:13)
[2022-09-09] MEDS: Insulin Lispro 100 UNIT/ML 3 ML VIAL SUBCUT ×2 (12:14→17:11)
[2022-09-09] MEDS: Enoxaparin Sodium 40 MG/0.4 ML SYRINGE SUBCUT (15:15)
--- NOTE | 2022-09-09 15:21 | MHC.CM.PN ---
Addendum entered by Maria Luisa Casiano 09/10/22 09:55: PT LEFT AMA Original Note: PT REPORTS SHE LIVES WITH HER BF AND ADULT CHILDREN SHE HAS NO SERVICES AND NO DME SHE HAS NO PCP HCP ON FILE SHE IS COVID [place] DCP: HOME NO SERVICES FAMILY TO TRANSPORT
--- NOTE | 2022-09-09 16:33 | P.CNID_ITS ---
History of Present Illness Data of Consult Service Date: 09/09/22 Requesting physician: Delta Umaña Primary Care Provider: Emilie Dangelo MD HPI Reason for consult: left foot wounds,cellulitis She is vague historian but says feet are both bothering her for last week. She complains of redness left great toe and medial area foot. She has no fever or chills. She has evidence OM left foot second metatarsal area prior 11/2021. Review of Systems Review of Systems: Yes all other systems are reviewed and are negative [facility] Past Medical History Medical History Asthma Atherosclerotic cardiovascular disease Atrial tachycardia COPD (chronic obstructive pulmonary disease) COVID-19 vaccine series completed Diabetes Diabetic toe ulcer Essential hypertension GERD (gastroesophageal reflux disease) Hypertension Left against medical advice Osteomyelitis PAD (peripheral artery disease) Family History Family History Mother Hx of CABG Sister CAD (coronary artery disease) Family history: reviewed and not pertinent Surgical History Surgical History History of esophagogastroduodenoscopy (EGD) History of toe surgery (09/22/21) Social History Social History Household Members: None Housing: Apartment Do you presently have visiting nurse or other home services: No Unable to assess alcohol history related to: Refusing to respond Alcohol intake: never Patient Tobacco Use Status: Current everyday Tobacco user Tobacco use type: Cigarette Cigarette Packs Per Day: 0.5 Cigarettes Per Day: 10.0 Years Smoked: 43 Smoked in Last 30 Days: Yes e-Cigarette/Vaping Use: Currently Using Patient Interested in Nicotine Replacement: No Patient Given Instructions on How to Stop Smoking: Yes Date Education Initiated: 09/08/22 Second Hand Smoke Exposure: Yes Use of substances other than those prescribed or required for medical reasons: No Currently Displaying Signs/Symptoms of Drug Intoxication Withdrawal: No Have you been hit, kicked, punched, or otherwise hurt by someone within the past year? If so, by whom?: No Do you feel safe in your current relationship?: Yes Is there a partner from a previous relationship who is making you feel unsafe now?: No Are you made to feel afraid or neglected: No Advance Directives: Yes Advance Directives on File: Yes Advance Directives Date on File: 12/28/20 Do you have thoughts of harming others: None Do you have a plan to hurt others: No Plan Recently lost weight without trying: Yes How much weight loss: Unsure Eating poorly because of decreased appetite: No Nutrition screen score: 4 Nutrition Risks: No Nutritional Risk Patient : No : No Poor oral hygiene: No service: No Current occupational status: unemployed and disabled Meds Allergies Allergy/AdvReac Type Severity Reaction Status Date / Time Penicillins [PENICILLINS] Allergy Severe RASH Verified 08/27/22 17:42 amoxicillin [AMOXICILLIN] Allergy Intermediate HIVES Verified 08/27/22 17:42 codeine Allergy Itching Verified 08/27/22 17:42 Active Medications: Current Medications Acetaminophen (Acetaminophen 325 Mg Tablet) 650 mg PO Q6H PRN PRN Reason: Pain, Mild (Pain Scale 1-3) Albuterol Sulfate (Albuterol Sulfate (0.083%) 2.5 Mg/3 Ml Vial.Neb) 2.5 mg INHALE RQ6H PRN PRN Reason: Wheezing Last Admin: 09/08/22 21:50 Dose: 2.5 mg Albuterol Sulfate (Albuterol Sulfate 90 Mcg 8 Gm Inhaler) 2 puff INHALE Q4H PRN PRN Reason: Wheezing Ascorbic Acid (Ascorbic Acid 250 Mg Tablet) 250 mg PO DAILY [facility] Last Admin: 09/09/22 09:55 Dose: 250 mg Aspirin (Aspirin Enteric Coated 81 Mg Tablet.) 81 mg PO DAILY [facility] Last Admin: 09/09/22 09:54 Dose: 81 mg Atorvastatin Calcium (Atorvastatin Calcium 80 Mg Tablet) 80 mg PO BEDTIME [facility] Last Admin: 09/08/22 21:05 Dose: 80 mg Carvedilol (Carvedilol 3.125 Mg Tablet) 3.125 mg PO BID [facility]; Protocol Last Admin: 09/09/22 09:54 Dose: 3.125 mg Docusate Sodium (Docusate Sodium 100 Mg Capsule) 100 mg PO DAILY PRN PRN Reason: Constipation Enoxaparin Sodium (Enoxaparin Sodium 40 Mg/0.4 Ml Syringe) 40 mg SUBCUT Q24H S Last Admin: 09/09/22 15:15 Dose: 40 mg Ferrous Sulfate (Ferrous Sulfate 324 Mg Tablet.Dr) 324 mg PO DAILY [facility] Last Admin: 09/09/22 09:55 Dose: 324 mg Furosemide (Furosemide 40 Mg/4 Ml Vial) 40 mg IVPUSH DAILY [facility]; Protocol Last Admin: 09/09/22 10:30 Dose: 40 mg Gabapentin (Gabapentin 300 Mg Capsule) 600 mg PO BID [facility] Last Admin: 09/09/22 09:54 Dose: 600 mg Glucose (Glucose Gel 15 Gm Gel..Gram.) 15 gm PO Q15M PRN; Protocol PRN Reason: per Hypoglycemia Standing Ord. Aztreonam 2 gm/ Sodium (Chloride) 50 mls @ 100 mls/hr IV Q8H [facility] Last Admin: 09/09/22 14:55 Dose: 100 mls/hr Dextrose (D10) 250 mls @ 750 mls/hr IV Q15M PRN; Protocol PRN Reason: per Hypoglycemia Standing Ord. Vancomycin HCl 1,500 mg/ (Sodium Chloride) 500 mls @ 333.333 mls/hr IV Q24H [facility] Last Infusion: 09/09/22 14:54 Dose: Infused Cefepime HCl 2 gm/ Sodium (Chloride) 50 mls @ 100 mls/hr IV Q8H [facility] Last Infusion: 09/09/22 06:11 Dose: Infused Insulin Glargine (Insulin Glargine,Hum.Rec.Anlog 100 Unit/Ml 10 Ml Vial) 15 unit SUBCUT BID [facility] Last Admin: 09/09/22 09:55 Dose: 15 unit Insulin Human Lispro (Insulin Lispro 100 Unit/Ml 3 Ml Vial) 0 unit SUBCUT QIDACHS [facility]; Protocol Last Admin: 09/09/22 12:14 Dose: 2 unit Montelukast Sodium (Montelukast Sodium 10 Mg Tablet) 10 mg PO BEDTIME [facility] Last Admin: 09/08/22 21:05 Dose: 10 mg Morphine Sulfate (Morphine Sulfate 4 Mg/Ml Cartridge) 4 mg IVPUSH Q4H PRN; Protocol PRN Reason: Pain, Severe (Pain Scale 7-10) Non-Formulary Medication (Umeclidinium [Incruse Ellipta]) 1 puff PO DAILY [facility] Ondansetron HCl (Ondansetron Hcl 4 Mg/2 Ml Vial) 4 mg IVPUSH Q8H PRN PRN Reason: Nausea and Vomiting Oxycodone HCl (Oxycodone Hcl Immed Release 5 Mg Tablet) 5 mg PO Q6H PRN PRN Reason: Pain, Moderate (Pain Scale 4-6 Last Admin: 09/09/22 10:30 Dose: 5 mg Pharmacy Consult (Consult Rx Perform Med Rec) 1 each MISCELLANE ONCE PRN PRN Reason: Consult order Pharmacy Consult (Consult Rx Vancomycin Dosing) 1 each MISCELLANE DAILY PRN PRN Reason: Consult order Sodium Chloride (0.9 % Sodium Chloride Flush 3 Ml Syringe) 3 ml IVFLUSH QSHIFT [facility] Last Admin: 09/09/22 15:15 Dose: Not Given Ticagrelor (Ticagrelor 90 Mg Tablet) 90 mg PO BID [facility] Last Admin: 09/09/22 09:54 Dose: 90 mg Home Medications Medication Instructions Recorded Confirmed Last Taken Type aspirin 81 mg tablet,delayed 1 tab PO DAILY 12/24/20 09/08/22 09/07/22 History release umeclidinium 62.5 mcg/actuation 1 puff PO DAILY 10/31/21 09/08/22 09/07/22 History blister powder for inhalation (Incruse Ellipta) montelukast 10 mg tablet 1 tab PO BEDTIME 02/13/22 09/08/22 09/07/22 History insulin glargine 100 unit/mL (3 20 unit subcut BID 03/23/22 09/08/22 09/07/22 History mL) subcutaneous pen (Lantus Solostar U-100 Insulin) atorvastatin 80 mg tablet 80 mg PO BEDTIME 05/01/22 09/08/22 09/07/22 History gabapentin 300 mg capsule 2 cap PO BID 05/01/22 09/08/22 09/07/22 History albuterol sulfate 2.5 mg/3 mL 1 vial inhalation Q6H PRN Wheezing 06/19/22 0 09/08/22 09/07/22 History (0.083 %) solution for nebulization albuterol sulfate 90 mcg/actuation 1 - 2 puff inhalation Q4-6H PRN 06/19/22 09/08/22 09/07/22 History aerosol inhaler (Ventolin HFA) Wheezing lisinopril 20 mg tablet 20 mg PO DAILY 03/09/08/22 09/07/22 History Physical Exam Vital Signs: Vital Signs: Last Vital Signs Temp 97.3 F 09/09/22 15:49 Pulse 87 09/09/22 15:49 Resp 16 09/09/22 15:49 BP 119/65 09/09/22 15:49 Pulse Ox 93 09/09/22 15:49 O2 Del Method Room Air 09/09/22 15:49 BMI result Body Mass Index 28.3 Const: General: cooperative HEENT: Head: Yes normal to inspection Face and sinus: Yes normal facial exam Mouth: Normal oral and palatal mucosa present Teeth and gingiva: dentition normal Eyes: General: appearance normal, both eyes and all related structures Pupils: Equal, round and reactive pupils present Resp: Effort & Inspection: normal respiratory effort Cardio: Rate: regular rate Rhythm: regular rhythm GI: Palpation (GI): Soft to palpation and nontender : General: Yes no CVA tenderness Back/Spine/Pelvis: Back: no CVA tenderness Skin: General skin exam: no rashes or lesions noted Neuro: General: moves all extremities Cranial nerves: Yes Equal, round and reactive pupils present Extrem: Other: neuropathy bilateral and redness left lateral great toe area,some of it sock fuzz Psych: Appearance: grossly normal Results Labs 09/09/22 09:52 09/09/22 09:52 Labs: Short CBC 09/09/22 Range/Units 09:52 WBC 15.3 H (4.8-10.8) X10*3/uL Hgb 9.5 L (12.0-16.0) g/dl Hct 32.8 L (37.0-47.0) % Plt Count 219 (160-400) X10*3/uL BMP 09/09/22 09/09/22 09:52 09:52 Sodium 138 Potassium 4.0 Chloride 98 Carbon Dioxide 31 H BUN 16 Creatinine 0.98 Cancelled Calcium 8.0 L Microbiology Microbiology Results: Microbiology 09/08/22 10:30 Blood - Venous Blood Culture - Preliminary No growth after 24 hours. 09/08/22 10:14 Blood - Venous Blood Culture - Preliminary No growth after 24 hours. Assessment and Plan (1) 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: Status: Acute OM foot is chronic and doesnt seem to be more than cellulitis with some valencia sions at this time She has had leukocytosis and treatment with antibiotics for foot infection in past. Osteomyelitis is chronic and incurable unless bone of foot removed. (2) Cellulitis of left lower extremity: Status: Acute Plan Would continue broad spectrum IV antibiotics and then po Doxycycline as outpa tient possible 10 days Wound Clinic. Time Spent With Patient Time: Total time managing care of this patient today ____ minutes.
[2022-09-09 16:45] LABS: Glucose, Whole Blood 244 mg/dL (60-115)
--- NOTE | 2022-09-09 17:18 | PC.NURSE ---
MD Umaña notified via tiger text at 1557 that Pt pulled IV by mistake, Pt is very hard stick, #22 was placed in left wrist. At this time pt presents very drowsy, pt is nodding off during mid conversation, VSS, o2 93-98% RA, alert to voice and light touch. Abg's ordered, Resp therapy unable to get specimen. Pt is currently more awake, eating dinner with at bedside. All safety measures in place.
[2022-09-09 20:10] LABS: Glucose, Whole Blood 114 mg/dL (60-115)
[2022-09-09] MEDS: Montelukast Sodium 10 MG TABLET PO (20:59)
[2022-09-09] MEDS: Atorvastatin Calcium 80 MG TABLET PO (20:59)
[2022-09-09] MEDS: Morphine Sulfate 4 MG/ML CARTRIDGE IVPUSH (21:37)
[2022-09-10 03:03] VITALS: BP 115/67; PULSE 85; RESP 17; TEMP 36.2; O2SAT 98
[2022-09-10] MEDS: 0.9 % Sodium Chloride Flush 3 ML SYRINGE IVFLUSH ×2 (03:29→08:19)
[2022-09-10] MEDS: Morphine Sulfate 4 MG/ML CARTRIDGE IVPUSH ×2 (03:29→08:18)
[2022-09-10] MEDS: cefEPime HCl 2 GM in 0.9 % Sodium Chloride 50 ML IV (05:49)
[2022-09-10 06:08] LABS: Creatinine Clr Calc Pharmacy 57.7; Estimated Glomerular Filt Rate 52
[2022-09-10] MEDS: oxyCODONE HCl Immed Release 5 MG TABLET PO (06:27)
[2022-09-10 07:18] VITALS: BP 109/67; PULSE 90; RESP 18; TEMP 37; O2SAT 97
--- NOTE | 2022-09-10 07:35 | HE.PHANOTE ---
Vancomycin Dosing Continue current regimen. Monitor renal function, slightly increase in SCr. If dose continued to rise dose may need to be decreased. Level scheduled for 09/11 @ 1100. Shantanu HutchinsD
--- NOTE | 2022-09-10 08:07 | P.DS_ITS ---
DS: Providers Provider Date of Service: 09/10/22 Date of admission: 09/08/22 15:16 Primary care physician: Emilie Dangelo MD Consults: 09/08/22 15:15 Consult to Vascular Surgery Routine Consulting Provider: [facility] V[facility] Services Reason for consultation: PAD, osteomyelitis, nonhealing dm ulcers 09/08/22 20:00 Consult to Infectious Diseases Routine Consulting Provider: Angie Padilla Reason for consultation: osteo, pcn allergy DS: Diagnosis Discharge Diagnosis (1) 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: Status: Acute (2) Cellulitis of left lower extremity: Status: Acute DS: Summary Hospital Course Hospital Course: Chief Complaint: ? ? ? foot infection?<Deltabreonna Umaña MD - Last Filed: 09/09/22 09:47> ? ? ? 51-year-old female with pertinent history of asthma/COPD COPD, HFrEF, insulin- dependent diabetes mellitus with neuropathy, essential hypertension, PAD, NSTEMI, ischemic cardiomyopathy,? and recent STEMI discharged from [facility] 08/27 s/p BARTOLOME to proximal LAD presents who is a current 0.5 pack per day smoker to the ED for evaluation of worsening bilateral food pain and abdominal bruising. She reports she has had nonhealing ulcers of the bilateral feet for about one year that had been improving but began worsening again recently with significant increase in pain of the left foot yesterday. She states the wounds have foul odor, but denies purulent drainage, endorses serous drainage. She has a history of osteomyelitis and is s/p amputation left 2nd toe. She is also reporting shortness of breath and occassional productive cough. She has not been compliant with discharge medications following d/c from [facility] on 08/31 for STEMI including not taking Brilinta, carvedilol, valsartan, and furosemide 40 mg b.i.d (on review of [facility] DC Summary), stating she was unaware. She is also complaining of bruising on the abdomen, but was receiving subq heparin TID while admitted. On arrival, vital stable.? Patient afebrile.? Lab significant for leukocytosis of 70.7, macrocytic anemia with H/H 9.4/32.1% and MCV 67.0.? Renal function normal, electrolyte levels normal.? Glucose 230.? Total bilirubin 2.7, direct bilirubin 1.3, AST/ALT normal.? CRP 8.95.? ESR 10.? INR 1.7, PT 19.8.? X-ray of the left foot showing soft tissue defect distally in the 1st digit with cortical deformity in the sub adjacent distal phalanx concerning for osteomyelitis as well as [id number] soft tissue swelling.? CT abdomen/pelvis showing small bilateral pleural effusions, right greater than left as well as small pericar dial effusion, 1.5 cm regular nodule in the right lower lobe possibly infectious versus inflammatory but malignancy cannot be excluded.? Specific to the abdomen, there is noted to be hepatic steatosis, possible minimal dependent sludge without evidence of acute cholecystitis as well as mild peritoneal ascites and anasarca. In the ED< given vanco and azactam, lorazepam, morphine and dilaudid. Hospital course: Patient presented with chronic foot wound and chronic osteomylitisis and some cellulitis and was been treated with IV antitibiotic. She was assess by Vascular surgery Dr. Lopez with the following remarks The feet do not look overtly infected.? Once again would like to manage this as conservatively as possible as she is not a candidate for any major vascular i ntervention.? The only thing that I would offer her should this become infected or source of concern would be an amputation . She was also seen by RADHA ohara this assessment and recommendation: OM foot is chronic and doesnt seem to be more than cellulitis with some abrasions at this time She has had leukocytosis and treatment with antibiotics for foot infection in past. Osteomyelitis is chronic and incurable unless bone of foot removed. Plan Would continue broad spectrum IV antibiotics and then po Doxycycline as outpatient possible 10 days Wound Clinic. Patient was to receive several days of IV antibitiocs but at this time she wishes to sign out against medical advise. She has been advised to complete today's IV Abx but unwilling to do so . She is alert, oriented to self place and time understand her decision, risks include worsening infection, sepsis and even . She accepts this. Advise to follow up with PCP and wound clinic. She is being prescribed doxycyline for 10 days. Chroni HFrE without acute exacerbation Time Spent with Patient Time attestation: Total time managing care of this patient today ____ minutes. Discharge coordination time: Greater than 30 minutes Quality: Safe Use of Opioids Does Pt have an Active Cancer Diagnosis on the Problem List?: No Quality: Stroke Does the patient have a stroke diagnosis?: No Physical Exam Vital Signs: Vital Signs: Last Vital Signs Temp 98.6 F 09/10/22 07:18 Pulse 90 09/10/22 07:18 Resp 18 09/10/22 07:18 BP 109/67 09/10/22 07:18 Pulse Ox 97 09/10/22 07:18 O2 Del Method Room Air 09/10/22 07:18 BMI result Body Mass Index 28.3 DS: Data Data Completed and Pending Completed studies during hospitalization [Text1]: Procedures Drainage of Left Foot Skin, External Approach (11/18/21) Excision of Left Foot Subcutaneous Tissue and Fascia, Open Approach (11/18/21) Insertion of Infusion Device into Superior Vena Cava, Percutaneous Approach (08/21/21) Transfusion of Nonautologous Red Blood Cells into Peripheral Vein, Percutaneous Approach (06/19/22) Labs on day of discharge: Laboratory Results - last 24 hr 09/09/22 09/09/22 09/09/22 09:52 09:52 09:52 WBC 15.3 H RBC 4.84 Hgb 9.5 L Hct 32.8 L MCV 67.8 L MCH 19.6 L MCHC 29.0 L RDW 21.2 H Plt Count 219 MPV Not Reportable Immature Gran % (Auto) 0.6 H Neut % (Auto) 82.4 H Lymph % (Auto) 9.1 L Billings % (Auto) 7.0 Eos % (Auto) 0.6 Baso % (Auto) 0.3 Lymph # (Auto) 1.4 Billings # (Auto) 1.1 Eos # (Auto) 0.1 Baso # (Auto) 0.1 Abs Immat Gran (auto) 0.09 H Absolute Neuts (auto) 12.6 H Absolute Nucleated RBC 0.030 H Nucleated RBC % (auto) 0.2 Sodium 138 Potassium 4.0 Chloride 98 Carbon Dioxide 31 H Anion Gap 13 BUN 16 Creatinine 0.98 Cancelled Estim Creat Clear Calc 64.8 Cancelled Estimated GFR 60 Cancelled POC Glucose Random Glucose 105 Calcium 8.0 L 09/09/22 09/09/22 09/09/22 11:15 16:42 20:07 WBC RBC Hgb Hct MCV MCH MCHC RDW Plt Count MPV Immature Gran % (Auto) Neut % (Auto) Lymph % (Auto) Billings % (Auto) Eos % (Auto) Baso % (Auto) Lymph # (Auto) Billings # (Auto) Eos # (Auto) Baso # (Auto) Abs Immat Gran (auto) Absolute Neuts (auto) Absolute Nucleated RBC Nucleated RBC % (auto) Sodium Potassium Chloride Carbon Dioxide Anion Gap BUN Creatinine Estim Creat Clear Calc Estimated GFR POC Glucose 157 H 244 H 114 Random Glucose Calcium 09/10/22 05:37 WBC RBC Hgb Hct MCV MCH MCHC RDW Plt Count MPV Immature Gran % (Auto) Neut % (Auto) Lymph % (Auto) Billings % (Auto) Eos % (Auto) Baso % (Auto) Lymph # (Auto) Billings # (Auto) Eos # (Auto) Baso # (Auto) Abs Immat Gran (auto) Absolute Neuts (auto) Absolute Nucleated RBC Nucleated RBC % (auto) Sodium Potassium Chloride Carbon Dioxide Anion Gap BUN Creatinine 1.10 Estim Creat Clear Calc 57.7 Estimated GFR 52 POC Glucose Random Glucose Calcium Preliminary micro results at discharge 09/08/22 10:30 Blood Culture - Preliminary Blood - Venous No growth after 24 hours. 09/08/22 10:14 Blood Culture - Preliminary Blood - Venous No growth after 24 hours. Discharge Plan Discharge Anticipated Discharge Date/Time: 09/11/22 13:04 Patient Disposition: Left Against Medical Advice Discharge Diagnosis: Cellulitis of foot, chronic osteomylitis Referrals: Emilie Dangelo MD [Primary Care Provider] - 1 Week Discharge Medications: New doxycycline hyclate 100 mg tablet 100 mg PO BID 10 Days Qty: 20 0RF Continued aspirin 81 mg tablet,delayed release (DR/EC) 1 tab PO DAILY Incruse Ellipta 62.5 mcg/actuation blister with device 1 puff PO DAILY montelukast 10 mg tablet 1 tab PO BEDTIME insulin glargine [Lantus Solostar U-100 Insulin] 100 unit/mL (3 mL) insulin pen 20 unit subcut BID gabapentin 300 mg capsule 2 cap PO BID atorvastatin 80 mg Tablet 80 mg PO BEDTIME albuterol sulfate 2.5 mg /3 mL (0.083 %) solution for nebulization 1 vial inhalation Q6H PRN (Reason: Wheezing) albuterol sulfate [Ventolin HFA] 90 mcg/actuation HFA aerosol inhaler 1 - 2 puff INHALATION Q4-6H PRN (Reason: Wheezing) lisinopril 20 mg tablet 20 mg PO DAILY Discharge Orders: Discharge Order (Routine); Ordered 09/10/22 Ordered By: Delta Umaña Care Plan Goals: resolution of cellulitis Health Concerns: cellulitis, chronic osteomylitis Plan of Treatment: Take Doxycyline as recommended and follow up with your Doctor in a week, ask your doctor to make a wound care referal You understand you are leaving against medical advise and assume all risks as explained to you Assessment: as Discharge Date/Time: 09/10/22 09:45
[2022-09-10] MEDS: Furosemide 40 MG/4 ML VIAL IVPUSH (08:18)
[2022-09-10] MEDS: Insulin Glargine,Hum.rec.anlog 100 UNIT/ML 10 ML VIAL 15 UNIT SUBCUT (08:18)
[2022-09-10] MEDS: Gabapentin 300 MG CAPSULE 600 MG PO (08:19)
[2022-09-10] MEDS: Ferrous Sulfate 324 MG TABLET.DR PO (08:19)
[2022-09-10] MEDS: Aspirin Enteric Coated 81 MG TABLET.DR PO (08:19)
[2022-09-10] MEDS: Ticagrelor 90 MG TABLET PO (08:19)
[2022-09-10] MEDS: carvediloL 3.125 MG TABLET PO (08:19)
[2022-09-10] MEDS: Acetaminophen 325 MG TABLET 650 MG PO (08:19)
[2022-09-10] MEDS: Ascorbic Acid 250 MG TABLET PO (08:19)
[2022-09-10 11:32] LABS: Glucose, Whole Blood 110 mg/dL (60-115)
== END 2022-09-10 09:45 | disposition left against medical advice (07) | DRG 197 ==
LOC: HO.ED 09:42 → HO.EDOVER 15:31 → HO.S3 16:14
PROVIDERS: Physician Assistant Medical; Admitting Provider Physician Assistant; Emergency Provider Emergency Medicine; PCP Internal Medicine; Visit Provider Internal Medicine
DX: E11.51 Type 2 diabetes mellitus with diabetic peripheral angiopathy without gangrene (principal); I21.4 Non-ST elevation (NSTEMI) myocardial infarction; M86.172 Other acute osteomyelitis, left ankle and foot; E11.42 Type 2 diabetes mellitus with diabetic polyneuropathy; L03.116 Cellulitis of left lower limb; L97.529 Non-pressure chronic ulcer of other part of left foot with unspecified severity; D50.9 Iron deficiency anemia, unspecified; E11.69 Type 2 diabetes mellitus with other specified complication; E11.621 Type 2 diabetes mellitus with foot ulcer; L97.919 Non-pressure chronic ulcer of unspecified part of right lower leg with unspecified severity; I25.10 Atherosclerotic heart disease of native coronary artery without angina pectoris; I11.0 Hypertensive heart disease with heart failure; I50.22 Chronic systolic (congestive) heart failure; K76.0 Fatty (change of) liver, not elsewhere classified; M86.672 Other chronic osteomyelitis, left ankle and foot; I25.5 Ischemic cardiomyopathy; F17.210 Nicotine dependence, cigarettes, uncomplicated; Z20.822 Contact with and (suspected) exposure to COVID-19; Z91.148 Patient's other noncompliance with medication regimen for other reason; Z71.6 Tobacco abuse counseling; Z88.0 Allergy status to penicillin; Z88.5 Allergy status to narcotic agent; Z79.4 Long term (current) use of insulin; Z79.82 Long term (current) use of aspirin; Z79.899 Other long term (current) drug therapy
CPT/HCPCS: 36415; 71045; 71250; 73620; 74177; 80048; 80076; 82565; 82947; 83605; 83880; 85025; 85610; 85652; 85730; 86140; 87040; 87635; 93308; 94640; 99285; J0692; J1170; J1650; J1940; J2060; J2270; J3370; J3371; Q9967

== ENCOUNTER 2022-09-12 18:54 | Inpatient (IN) | payer OTHER, SELFPAY ==
--- NOTE | ~2022-09-12 | XR_ITS ---
EXAMINATION: PORTABLE CHEST 1 VIEW CLINICAL INFORMATION: sob. COMPARISON: 09/08/2022 chest x-ray and CT scan.. TECHNIQUE: Portable frontal view of the chest was obtained. FINDINGS: The lungs are well expanded. There is subtle airspace opacification in the right upper lobe which corresponds with the subtle airspace disease in this location on the 09/08/2022 CT scan. Minimal left basilar atelectasis. No effusion, edema, or pneumothorax. Cardiac and mediastinal silhouettes are stable prominent. Coronary artery stent or calcification seen. No acute bony abnormality seen. XR/XR chest 1V IMPRESSION: Subtle airspace disease in the right upper lobe corresponding with the subtle airspace disease in this location on the 09/08/2022 CT scan. Minimal left basilar atelectasis.
[2022-09-12 19:05] VITALS: BP 122/80; BP 124/84; PULSE 100; RESP 16; TEMP 36.8; O2SAT 100; BMI 28.4
[2022-09-12 19:07] LABS: Glucose, Whole Blood 215 mg/dL (60-115)
--- NOTE | 2022-09-12 19:14 | ECG_ITS ---
Test Reason : SOB Blood Pressure : / mmHG Vent. Rate : 098 BPM Atrial Rate : 098 BPM P-R Int : 178 ms QRS Dur : 088 ms QT Int : 376 ms P-R-T Axes : 063 083 092 degrees QTc Int : 480 ms Normal sinus rhythm Low voltage QRS Cannot rule out Anteroseptal infarct (cited on or before 13-JUN-2022) Abnormal ECG When compared with ECG of 27-AUG-2022 17:43, No significant change was found Referred By: Maty Coffey Electronically Signed By:Gurmeet Gallardo
--- NOTE | 2022-09-12 19:24 | ED_ITS ---
HPI - General Adult General Chief complaint: Wound/Laceration Stated complaint: LLE PAIN/SWELLING,UNABLE TO AMB PER Time Seen by Provider: 09/12/22 19:00 Source: patient and EMS Mode of arrival: EMS Limitations: no limitations History of Present Illness HPI narrative: Left lower extremity swelling and worsening of infection. 52-year-old female recently admitted for left lower extremity cellulitis and acute osteomyelitis of the left great toe patient signed against medical advise left on doxycycline 3 days ago return for worsening of the swelling and pain of the left lower extremities/left foot. Patient also complaining of SOB a coughing patient is known to have COPD. Past history is significant for asthma/COPD, HFrEF, insulin-dependent diabetes with neuropathy, HTN, NSTEMI, ischemic cardiomyopathy. Related Data Home Medications Medication Instructions Recorded Confirmed aspirin 81 mg tablet,delayed 1 tab PO DAILY 12/24/20 09/12/22 release umeclidinium 62.5 mcg/actuation 1 puff PO DAILY 10/31/21 09/12/22 blister powder for inhalation (Incruse Ellipta) montelukast 10 mg tablet 1 tab PO BEDTIME 02/13/22 09/12/22 insulin glargine 100 unit/mL (3 20 unit subcut BID 03/23/22 09/12/22 mL) subcutaneous pen (Lantus Solostar U-100 Insulin) gabapentin 300 mg capsule 2 cap PO BID 05/01/22 09/12/22 albuterol sulfate 2.5 mg/3 mL 1 vial inhalation Q6H PRN Wheezing 06/19/22 09/12/22 (0.083 %) solution for nebulization albuterol sulfate 90 mcg/actuation 1 - 2 puff inhalation Q4-6H PRN 06/19/22 0409/01 aerosol inhaler (Ventolin HFA) Wheezing lisinopril 20 mg tablet 20 mg PO DAILY 09/08/22 09/12/22 furosemide 40 mg tablet 40 mg PO BID 09/12/22 09/12/22 Previous Rx's Medication Instructions Recorded doxycycline hyclate 100 mg tablet 100 mg PO BID 10 days #20 tabs 09/10/22 Allergies Allergy/AdvReac Type Severity Reaction Status Date / Time Penicillins [PENICILLINS] Allergy Severe RASH Verified 08/27/22 17:42 amoxicillin [AMOXICILLIN] Allergy Intermediate HIVES Verified 08/27/22 17:42 codeine Allergy Itching Verified 08/27/22 17:42 Review of Systems Review of Systems: All other systems are reviewed and are negative Constitutional: Reports as per HPI and Reports no additional constitutional complaints Eyes: Reports as per HPI and Reports no additional eye complaints Reports system reviewed and no additional complaints, except as documented Cardiovascular: Reports as per HPI and Reports no additional cardiovascular com plaints Respiratory: Reports as per HPI and Reports no additional respiratory complaints Gastrointestinal: Reports as per HPI and Reports no additional gastrointestinal complaints Genitourinary: Reports no additional female genitourinary complaints Musculoskeletal: Reports no additional musculoskeletal complaints Skin/Breast: Reports system reviewed and no additional complaints, except as docu Psychiatric: Reports no additional psychiatric complaints Endocrine: Reports no additional endocrine complaints Hematologic/Lymphatic: Reports no additional hematologic/lymphatic complaints Allergic/Immunologic: Reports no additional allergic/immunologic complaints Reports system reviewed and no additional complaints, except as documented and Reports Abnormal speech present FOR[facility] Past Medical History Medical History Asthma Atherosclerotic cardiovascular disease Atrial tachycardia COPD (chronic obstructive pulmonary disease) COVID-19 vaccine series completed Diabetes Diabetic toe ulcer Essential hypertension GERD (gastroesophageal reflux disease) Hypertension Left against medical advice Osteomyelitis PAD (peripheral artery disease) Surgical History History of esophagogastroduodenoscopy (EGD) History of toe surgery (09/22/21) Family History Family History Mother Hx of CABG Sister CAD (coronary artery disease) Social History Social History Household Members: None Housing: Apartment Do you presently have visiting nurse or other home services: No Unable to assess alcohol history related to: Refusing to respond Alcohol intake: never Patient Tobacco Use Status: Current everyday Tobacco user Tobacco use type: Cigarette Cigarette Packs Per Day: 0.5 Cigarettes Per Day: 10.0 Years Smoked: 43 Smoked in Last 30 Days: Yes e-Cigarette/Vaping Use: Currently Using Second Hand Smoke Exposure: Yes Use of substances other than those prescribed or required for medical reasons: No Advance Directives: No Advance Directives Information Provided: No Advance Directives Date on File: 12/28/20 Patient : No service: No Current occupational status: unemployed and disabled Physical Exam ED Vital Signs: Vital Signs - 24 hr 09/12/22 19:05 09/12/22 19:37 09/12/22 19:53 Temperature 98.2 F Pulse Rate 100 100 Respiratory Rate 16 16 20 Blood Pressure 124/84 Pulse Oximetry 100 Oxygen Delivery Method Room Air 09/12/22 21:24 Temperature 98.0 F Pulse Rate 99 Respiratory Rate 18 Blood Pressure 122/68 Pulse Oximetry Oxygen Delivery Method Room Air BMI result Body Mass Index 28.4 Vital signs have been reviewed as appeared to be correct. Blood pressure normal. Heart rate normal. Respiration rate normal. Temperature normal. Oxygen saturation normal. Appearance: Alert. Oriented X3. No acute distress. Head: Normal external exam. Normocephalic. Atraumatic. No Witt signs noted. No raccoon eyes noted Eyes: PERRLA. EOMI. Conjunctiva and sclera normal. Eyelids normal. ENT: TM's Normal. Pharynx normal. Uvula midline. Moist mucous membranes. No trismus noted. No drooling noted. No muffled voice noted. Neck: Normal inspection. Neck supple. FROM. No adenopathy. Thyroid Normal. No meningeal signs. No neck mass noted. CVS: Normal heart rate and rhythm. Heart sound normal. No murmurs noted. Pulses normal throughout. Respiratory: No respiratory distress. Painless inspiration. Breath sounds normal. No wheezes/rales/rhonchi noted. Chest nontender. No accessory muscle usage noted or decreased air movement noted. Abdomen: Soft and nontender. Bowel sounds normal in all 4 quadrants. No distention noted. No organomegaly noted. No visible injury noted. Back: No CVA tenderness. Full range of motion noted. Skin: Skin warm and dry. Normal skin color. Normal skin turgor. No rashes/lesions/lacerations noted. Extremities: Left lower extremities with diffuse swelling, redness, tenderness affecting the left foot more to the left great toe extending up to below the left knee. Neuro: Oriented X 3. Cranial nerve exam: II-XII are grossly intact No motor deficit. No sensory deficit. Reflexes normal. Course Course Course Narrative: 52-year-old female with left foot/left leg cellulitis/osteomyelitis patient left AMA 3 days ago on doxycycline return for worsening of the swelling and redness in the left lower extremities. Patient was evaluated by vascular surgery recommended amputation. Will start the patient on doxycycline and vancomycin and readmit. Medications Administered Discontinued Medications Generic Name Dose Route Start Last Admin Trade Name Freq PRN Reason Stop Dose Admin Albuterol Sulfate 7.5 mg 09/12/22 19:18 09/12/22 19:32 Albuterol Sulfate (0.083%) 2.5 Mg/3 Ml Vial.Neb INHALE 09/12/22 19:19 7.5 mg ONCE ONE Administration Hydromorphone HCl 1 mg 09/12/22 19:13 09/12/22 19:53 Hydromorphone Hcl 1 Mg/Ml Syringe IVPUSH 09/12/22 19:14 1 mg ONCE ONE Administration Protocol Magnesium Sulfate 2 gm in 50 mls @ 25 mls/hr 09/12/22 19:18 09/12/22 19:53 Magnesium Sulfate/H2o IV 09/12/22 21:17 25 mls/hr ONCE ONE Administration Vancomycin HCl 1,000 mg/ 270 mls @ 270 mls/hr 09/12/22 19:22 09/12/22 20:23 Sodium Chloride IV 09/12/22 20:21 270 mls/hr ONCE ONE Administration Methylprednisolone Sodium Succinate 125 mg 09/12/22 19:18 09/12/22 19:53 Methylprednisolone Sod Succ 125 Mg/2 Ml Vial IVPUSH 09/12/22 19:19 125 mg ONCE ONE Administration Medical Decision Making Differential Diagnosis Differential Diagnoses: The differential diagnosis associated with the presentation includes (Osteomyelitis, cellulitis, COPD exacerbation, pneumonia.) Admission/Observation Consideration of admission/observation: Escalation of care including admission/observation considered Consult Healthcare Provider Management of the patient was discussed with: Hospitalist Lab Data MDM Lab Attestation statement: I reviewed the patient's lab results. 09/12/22 19:39 09/12/22 19:39 Labs: Lab Results 09/12/22 09/12/22 09/12/22 Range/Units 19:04 19:39 19:39 WBC 12.3 H (4.8-10.8) X10*3/uL RBC 4.64 (4.20-5.50) X10*6/uL Hgb 9.0 L (12.0-16.0) g/dl Hct 31.0 L (37.0-47.0) % MCV 66.8 L (80.0-98.0) fL MCH 19.4 L (27.0-33.0) pg MCHC 29.0 L (31.0-35.0) g/dl RDW 21.3 H (11.0-16.0) % Plt Count 220 (160-400) X10*3/uL MPV Not Reportable Immature Gran % (Auto) 0.7 H (0.0-0.4) % Neut % (Auto) 80.7 H (45-73) % Lymph % (Auto) 12.1 L (20-40) % Tompkins % (Auto) 5.5 (2-11) % Eos % (Auto) 0.6 (0-4) % Baso % (Auto) 0.4 (0-2) % Lymph # (Auto) 1.5 (1.2-4.9) X10*3/uL [place]pkins # (Auto) 0.7 (0.1-1.2) X10*3/uL Eos # (Auto) 0.1 (0.0-0.4) X10*3/uL Baso # (Auto) 0.1 (0.0-0.2) X10*3/uL Abs Immat Gran (auto) 0.09 H (0.00-0.03) X10*3/uL Absolute Neuts (auto) 9.9 H (2.0-8.3) x10*3/uL Absolute Nucleated RBC 0.000 (0.0-0.012) X10*3/uL Nucleated RBC % (auto) 0.0 (0.0-0.2) /100WBC Smear Tech's Comments VERIFIED Sodium (135-145) mmol/L Potassium (3.3-5.1) mmol/L Chloride (96-108) mmol/L Carbon Dioxide (22-29) mmol/L Anion Gap (12-20) BUN (9-16) mg/dL Creatinine (0.5-1.4) mg/dL Estim Creat Clear Calc Estimated GFR POC Glucose 215 H (60-115) mg/dL Random Glucose (60-115) mg/dL Lactic Acid 2.3 H* (0.5-2.0) mmol/L Calcium (8.4-10.2) mg/dL Total Bilirubin (0.0-1.0) mg/dL Direct Bilirubin (0.0-0.5) mg/dL AST (5-31) U/L ALT (0-31) U/L Alkaline Phosphatase (39-117) U/L Troponin I High Sens (<3.5-17.0) ng/L Total Protein (6.5-8.0) g/dL Albumin (3.5-5.0) g/dL Lipase (8-78) U/L COVID-19 (KATHLEEN) (Negative) COVID-19 Clin Com 09/12/22 09/12/22 09/12/22 Range/Units 19:39 19:39 20:46 WBC (4.8-10.8) X10*3/uL RBC (4.20-5.50) X10*6/uL Hgb (12.0-16.0) g/dl Hct (37.0-47.0) % MCV (80.0-98.0) fL MCH (27.0-33.0) pg MCHC (31.0-35.0) g/dl RDW (11.0-16.0) % Plt Count (160-400) X10*3/uL MPV Immature Gran % (Auto) (0.0-0.4) % Neut % (Auto) (45-73) % Lymph % (Auto) (20-40) % Tompkins % (Auto) (2-11) % Eos % (Auto) (0-4) % Baso % (Auto) (0-2) % Lymph # (Auto) (1.2-4.9) X10*3/uL Tompkins # (Auto) (0.1-1.2) X10*3/uL Eos # (Auto) (0.0-0.4) X10*3/uL Baso # (Auto) (0.0-0.2) X10*3/uL Abs Immat Gran (auto) (0.00-0.03) X10*3/uL Absolute Neuts (auto) (2.0-8.3) x10*3/uL Absolute Nucleated RBC (0.0-0.012) X10*3/uL Nucleated RBC % (auto) (0.0-0.2) /100WBC Smear Tech's Comments Sodium 137 (135-145) mmol/L Potassium 3.1 L D (3.3-5.1) mmol/L Chloride 96 (96-108) mmol/L Carbon Dioxide 31 H (22-29) mmol/L Anion Gap 13 (12-20) BUN 15 (9-16) mg/dL Creatinine 1.00 (0.5-1.4) mg/dL Estim Creat Clear Calc 63.6 Estimated GFR 58 POC Glucose (60-115) mg/dL Random Glucose 234 H (60-115) mg/dL Lactic Acid (0.5-2.0) mmol/L Calcium 8.1 L (8.4-10.2) mg/dL Total Bilirubin 1.5 H (0.0-1.0) mg/dL Direct Bilirubin 0.7 H (0.0-0.5) mg/dL AST 10 (5-31) U/L ALT 13 (0-31) U/L Alkaline Phosphatase 97 (39-117) U/L Troponin I High Sens 184.7 H* D (<3.5-17.0) ng/L Total Protein 6.0 L (6.5-8.0) g/dL Albumin 2.9 L (3.5-5.0) g/dL Lipase 7 L (8-78) U/L COVID-19 (KATHLEEN) Negative (Negative) COVID-19 Clin Com See Note Independent Interpretation I performed an independent interpretation of an: EKG (Normal sinus rhythm at 98 beats per min, normal axis deviation, normal intervals.) and Plain X-Ray (Chest:Subtle airspace disease in the right upper lobe corresponding with the subtle airspace disease in this location on the 09/08/2022 CT scan. Minimal left basilar atelectasis. ) Radiology Impression Discussion of test interpretation with radiology: I have reviewed the radiologist's reading. Chronic Conditions Patient?s care impacted by: Diabetes Discharge Plan Discharge Clinical Impression: Cellulitis of left lower extremity, 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, Asthma exacerbation in COPD Patient Disposition: Admitted As Inpatient
[2022-09-12] MEDS: Albuterol Sulfate (0.083%) 2.5 MG/3 ML VIAL.NEB 7.5 MG INHALE (19:32)
[2022-09-12 19:37] VITALS: PULSE 100; RESP 16; O2SAT 100
[2022-09-12 19:48] LABS: Basophils Absolute Auto 0.1 X10*3/uL (0.0-0.2); Basophils Percent Auto 0.4 % (0-2); Eosinophils Absolute Auto 0.1 X10*3/uL (0.0-0.4); Lymphocytes Absolute Auto 1.5 X10*3/uL (1.2-4.9); Monocytes Absolute Auto 0.7 X10*3/uL (0.1-1.2); Red Cell Distribution Width 21.3 % (11.0-16.0); SCAN SMEAR FLAG 1
[2022-09-12 19:50] LABS: Eosinophils Percent Auto 0.6 % (0-4); Imm Gran Abs Auto 0.09 X10*3/uL (0.00-0.03); Imm Gran Pct Auto 0.7 % (0.0-0.4); Lymphocytes Percent Auto 12.1 % (20-40); MANUAL DIFF FLAG SCAN; Mean Corpuscular Hemoglobin 19.4 pg (27.0-33.0); Mean Corpuscular Volume 66.8 fL (80.0-98.0); Monocytes Percent Auto 5.5 % (2-11); Neutrophils Absolute Auto 9.9 x10*3/uL (2.0-8.3); Neutrophils Percent Auto 80.7 % (45-73); Platelet Count 220 X10*3/uL (160-400); Red Blood Count 4.64 X10*6/uL (4.20-5.50); White Blood Count 12.3 X10*3/uL (4.8-10.8)
[2022-09-12 19:53] VITALS: RESP 20
[2022-09-12] MEDS: methylPREDNISolone Sod Succ 125 MG/2 ML VIAL IVPUSH (19:53)
[2022-09-12] MEDS: Magnesium Sulfate/H2O 2 GM/50 ML PIGGYBACK IV (19:53)
[2022-09-12] MEDS: HYDROmorphone HCl 1 MG/ML SYRINGE IVPUSH (19:53)
[2022-09-12 19:58] LABS: COVID-19 Test Negative (Negative); IDNOW Serial# BCCEAD1C
[2022-09-12 20:02] LABS: Lactic Acid 2.3 mmol/L (0.5-2.0)
[2022-09-12 20:11] LABS: PLT ABN DIST 1
[2022-09-12 20:12] LABS: SLIDE REVIEW VERIFIED
--- NOTE | 2022-09-12 20:19 | PHA.MEDREC ---
Patient states she is NO longer taking atorvastatin and that she is NOT taking Brilinta . Pharmacy Consult ? Medication Reconciliation Pharmacy has completed the medication reconciliation.
--- NOTE | 2022-09-12 20:21 | PHA.MEDREC ---
Patient states she is NO longer taking atorvastatin and that she is No longer taking Brilinta. Pharmacy Consult ? Medication Reconciliation Pharmacy has completed the medication reconciliation.
[2022-09-12] MEDS: vancomycin HCL 1,000 MG in 0.9 % Sodium Chloride 250 ML 270 MG IV (20:23)
[2022-09-12 20:44] LABS: Troponin-I High Sensitivity 184.7 ng/L (<3.5-17.0)
[2022-09-12 21:10] LABS: Alanine Aminotransferase 13 U/L (0-31); Albumin Level 2.9 g/dL (3.5-5.0); Alkaline Phosphatase 97 U/L (39-117); Anion Gap 13 (12-20); Aspartate Amino Transferase 10 U/L (5-31); Bilirubin Direct 0.7 mg/dL (0.0-0.5); Bilirubin Total 1.5 mg/dL (0.0-1.0); Blood Urea Nitrogen 15 mg/dL (9-16); Calcium 8.1 mg/dL (8.4-10.2); Carbon Dioxide 31 mmol/L (22-29); Chloride 96 mmol/L (96-108); Creatinine Clr Calc Pharmacy 63.6; Estimated Glomerular Filt Rate 58; Glucose Random 234 mg/dL (60-115); Lipase 7 U/L (8-78); Potassium 3.1 mmol/L (3.3-5.1); Sodium 137 mmol/L (135-145)
[2022-09-12 21:24] VITALS: BP 122/68; PULSE 99; RESP 18; TEMP 36.7
[2022-09-12] MEDS: Doxycycline Hyclate 100 MG in 0.9 % Sodium Chloride 250 ML 166.67 MG IV (21:41)
[2022-09-12 21:44] LABS: Reflex Lactate? Lactic Acid Added
[2022-09-12 22:35] LABS: ~Lactic Acid-LAB USE ONLY 1.5 mmol/L (0.5-2.0)
--- NOTE | 2022-09-12 22:40 | P.HPHOSP_ITS ---
History of Present Illness Date of Service: 09/12/22 Chief Complaint: nonhealing, worsening wounds this is a 52-year-old female with past medical history of asthma / COPD, heart failure with reserved ejection fraction, diabetes, neuropathy, HTN, P 80, NSTEMI, schema cardiomyopathy, CAD status post STEMI in August of this year who 0 was recently admitted to the hospital on September 08, and left against medical advice on September 10 for management of chronic osteomyelitis as well as cellulitis comes in today stating worsening wound and uncontrolled pain. Of note patient was seen by infectious disease as well as by vascular surgery who recommended amputation and several days of antibiotics and discharged with doxycycline, patient did not want to stay for IV antibiotics, and was discharged on doxycycline. Patient reports compliance with the doxycycline, but states that her pain is unbearable, she also states that she has increased drainage from the heel wound, as well as significant pain in her right big toe. She states no fever, no chills, no nausea or vomiting, no diarrhea constipation, no urinary symptoms and no lower extremity edema. No chest pain, she has chronic shortness of breath with chronic cough and sputum production that has not worsened. No headache or change in vision, no weakness numbness or tingling. On arrival to the ED hemodynamically stable with no evidence of fever, no abnormal vitals Labs are significant for WBC count of 12.3, potassium 3.1, lactic acid of 2.3 improved after IV fluids, troponin of 184 increased to 188 otherwise unremarkable labs. Chest x-ray showing ?Airspace disease which was present on previous x-ray patient is willing to undergo amputation at this time with general surgery only, patient was started on IV antibiotics and will be admitted for further management Review of Systems Review of Systems: Yes all other systems are reviewed and are negative FOR[facility]LY [facility] Medical History Asthma Atherosclerotic cardiovascular disease Atrial tachycardia COPD (chronic obstructive pulmonary disease) COVID-19 vaccine series completed Diabetes Diabetic toe ulcer Essential hypertension GERD (gastroesophageal reflux disease) Hypertension Left against medical advice Osteomyelitis PAD (peripheral artery disease) Family History Mother Hx of CABG Sister CAD (coronary artery disease) Surgical History History of esophagogastroduodenoscopy (EGD) History of toe surgery (09/22/21) Social History Household Members: Family Housing: Apartment Do you presently have visiting nurse or other home services: No Unable to assess alcohol history related to: Refusing to respond Alcohol intake: never Patient Tobacco Use Status: Current everyday Tobacco user Tobacco use type: Cigarette Cigarette Packs Per Day: 0.5 Cigarettes Per Day: 3 Years Smoked: 43 Smoked in Last 30 Days: Yes e-Cigarette/Vaping Use: Currently Using Second Hand Smoke Exposure: Yes Use of substances other than those prescribed or required for medical reasons: No Have you been hit, kicked, punched, or otherwise hurt by someone within the past year? If so, by whom?: No Do you feel safe in your current relationship?: No Is there a partner from a previous relationship who is making you feel unsafe now?: No Are you made to feel afraid or neglected: No Advance Directives: No Advance Directives Information Provided: No Advance Directives Date on File: 12/28/20 Do you have thoughts of harming others: None Do you have a plan to hurt others: No Plan Recently lost weight without trying: No Eating poorly because of decreased appetite: No Nutrition Risks: No Nutritional Risk Patient : No : No Poor oral hygiene: No service: No Current occupational status: unemployed and disabled Meds Allergies Allergy/AdvReac Type Severity Reaction Status Date / Time Penicillins [PENICILLINS] Allergy Severe RASH Verified 08/27/22 17:42 amoxicillin [AMOXICILLIN] Allergy Intermediate HIVES Verified 08/27/22 17:42 codeine Allergy Itching Verified 08/27/22 17:42 Active Medications: Current Medications Vancomycin HCl 1,000 mg/ (Sodium Chloride) 270 mls @ 270 mls/hr IV Q12H [facility] Pharmacy Consult (Consult Rx Perform Med Rec) 1 each MISCELLANE ONCE PRN PRN Reason: Consult order Pharmacy Consult (Consult Rx Vancomycin Dosing) 1 each MISCELLANE DAILY PRN PRN Reason: Consult order Home Medications Medication Instructions Recorded Confirmed Last Taken Type aspirin 81 mg tablet,delayed 1 tab PO DAILY 12/24/20 09/12/22 09/07/22 History release umeclidinium 62.5 mcg/actuation 1 puff PO DAILY 10/31/21 09/12/22 09/07/22 History blister powder for inhalation (Incruse Ellipta) montelukast 10 mg tablet 1 tab PO BEDTIME 02/13/22 09/12/22 09/07/22 History insulin glargine 100 unit/mL (3 20 unit subcut BID 03/23/22 09/12/22 09/07/22 History mL) subcutaneous pen (Lantus Solostar U-100 Insulin) gabapentin 300 mg capsule 2 cap PO BID 05/01/22 09/12/22 09/07/22 History albuterol sulfate 2.5 mg/3 mL 1 vial inhalation Q6H PRN Wheezing 06/19/22 09/12/22 09/07/22 History (0.083 %) solution for nebulization albuterol sulfate 90 mcg/actuation 1 - 2 puff inhalation Q4-6H PRN 06/19/22 09/12/22 09/07/22 History aerosol inhaler (Ventolin HFA) Wheezing lisinopril 20 mg tablet 20 mg PO DAILY 09/08/22 09/12/22 09/07/22 History furosemide 40 mg tablet 40 mg PO BID 09/12/22 09/12/22 Unknown History Physical Exam Vital Signs and Narrative: Vital Signs: Last Vital Signs Temp 98.0 F 09/12/22 21:24 Pulse 99 09/12/22 21:24 Resp 18 09/12/22 21:24 BP 122/68 09/12/22 21:24 Pulse Ox 100 09/12/22 19:05 O2 Del Method Room Air 09/12/22 21:24 BMI result Body Mass Index 28.4 Const: General: cooperative and no acute distress Orientation/consciousn ess: patient oriented x3 Eyes: General: appearance normal, both eyes and all related structures Resp: Effort & Inspection: normal respiratory effort Auscultation: clear to auscultation bilaterally Cardio: Rate: regular rate Rhythm: regular rhythm GI: Palpation (GI): Soft to palpation Auscultation: normal bowel sounds Skin: General skin exam: no rashes or lesions noted Neuro: General: patient oriented x3 Cognition (Neuro): normal cognition Extrem: Other: left foot has multiple wounds including 1 in the large toe that is clean at the base, she also has a large laceration in the base of her heel that has serosanguineous drainage, Results Labs 09/12/22 19:39 09/12/22 20:46 Labs: Laboratory Results - last 24 hr 09/12/22 09/12/22 09/12/22 19:04 19:39 19:39 MCV 66.8 L MCH 19.4 L MCHC 29.0 L RDW 21.3 H Plt Count 220 MPV Not Reportable Immature Gran % (Auto) 0.7 H Neut % (Auto) 80.7 H Lymph % (Auto) 12.1 L [place] % (Auto) 5.5 Eos % (Auto) 0.6 Baso % (Auto) 0.4 Lymph # (Auto) 1.5 [place] # (Auto) 0.7 Eos # (Auto) 0.1 Baso # (Auto) 0.1 Abs Immat Gran (auto) 0.09 H Absolute Neuts (auto) 9.9 H Absolute Nucleated RBC 0.000 Nucleated RBC % (auto) 0.0 Smear Tech's Comments VERIFIED Anion Gap Estim Creat Clear Calc Estimated GFR POC Glucose 215 H Random Glucose Lactic Acid 2.3 H* Lactic Acid F/U @ 2Hr Calcium Total Bilirubin Direct Bilirubin AST ALT Alkaline Phosphatase Troponin I High Sens Total Protein Albumin Lipase COVID-19 (KATHLEEN) COVID-[facility] Clin Com 09/12/22 09/12/22 09/12/22 19:39 19:39 20:46 MCV MCH MCHC RDW Plt Count MPV Immature Gran % (Auto) Neut % (Auto) Lymph % (Auto) [place] % (Auto) Eos % (Auto) Baso % (Auto) Lymph # (Auto) [place] # (Auto) Eos # (Auto) Baso # (Auto) Abs Immat Gran (auto) Absolute Neuts (auto) Absolute Nucleated RBC Nucleated RBC % (auto) Smear Tech's Comments Anion Gap 13 Estim Creat Clear Calc 63.6 Estimated GFR 58 POC Glucose Random Glucose 234 H Lactic Acid Lactic Acid F/U @ 2Hr Calcium 8.1 L Total Bilirubin 1.5 H Direct Bilirubin 0.7 H AST 10 ALT 13 Alkaline Phosphatase 97 Troponin I High Sens 184.7 H* D Total Protein 6.0 L Albumin 2.9 L Lipase 7 L COVID-19 (KATHLEEN) Negative COVID-19 Clin Com See Note 09/12/22 22:19 MCV MCH MCHC RDW Plt Count MPV Immature Gran % (Auto) Neut % (Auto) Lymph % (Auto) [place] % (Auto) Eos % (Auto) Baso % (Auto) Lymph # (Auto) [place] # (Auto) Eos # (Auto) Baso # (Auto) Abs Immat Gran (auto) Absolute Neuts (auto) Absolute Nucleated RBC Nucleated RBC % (auto) Smear Tech's Comments Anion Gap Estim Creat Clear Calc Estimated GFR POC Glucose Random Glucose Lactic Acid Lactic Acid F/U @ 2Hr 1.5 Calcium Total Bilirubin Direct Bilirubin AST ALT Alkaline Phosphatase Troponin I High Sens Total Protein Albumin Lipase COVID-19 (KATHLEEN) COVID-19 Clin Com Imaging Radiologist's Impressions: Impressions Chest X-Ray 09/12/22 19:34 IMPRESSION: Subtle airspace disease in the right upper lobe corresponding with the subtle airspace disease in this location on the 09/08/2022 CT scan. Minimal left basilar atelectasis. Assessment and Plan (1) 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: Status: Acute (2) Cellulitis of left lower extremity: Status: Acute (3) Diabetic foot ulcer: Status: Acute (4) PAD (peripheral artery disease): Status: Acute (5) Open wound of both legs with complication: Status: Acute Plan 52-year-old female with past medical history of chronic osteomyelitis of great toe of the left foot, cellulitis as of left lower extremity, diabetic foot ulcer presents to the hospital with complaints of worsening pain and drainage. Patient was seen in the hospital and was admitted from September 09 and left against medical advice on September 10. Patient returns today stating that her pain is not controlled, as well as worsening symptoms in her foot and agreeable to amputation which was recommended on previous admission # chronic osteomyelitis of left great toe - consult general surgery( per pt request - Dr mckinney) - will continue IV antibiotics - follow cultures # cellulitis of left lower extremity - improved - IV antibiotics as recommended by id on previous admission # diabetic foot ulcers - management as above with IV antibiotics, amputation of left great toe - wound care # asthma - states chronic shortness of breath and cough with no worsening symptoms - Elliso[employer]an[employer] p.r.n. # history of CHF - exacerbation - monitor volume status - continue Lasix # history of recent STEMI status post stent? in August 2022 - no chest pain, continue ASA, # diabetes - continue home insulin - will add low-dose sliding scale insulin - diabetic diet DVT prophylaxis: Lovenox given patient's need for IV antibiotics and as well as evaluation for amputation of left lower great toe patient will require minimum 2 nights inpatient hospital stay for further management and monitoring Time Spent With Patient Time: Total time managing care of this patient today ____ minutes. Quality Stroke Does the patient have a stroke diagnosis?: No VTE Prior VTE?: No VTE Risk Level:: Medical - moderate - high VTE Device Contraindication: Treatment Not Indicated VTE Drug Contraindication: N/A - Med Ordered
[2022-09-12 22:52] LABS: Troponin-I High Sensitivity 188.5 ng/L (<3.5-17.0)
--- NOTE | 2022-09-12 23:04 | PHA.PROG ---
Admission Date/Time: Indication: BONE Weight in k.8 kg Serum Creatinine - Last 168 Hours 09/12/22 20:46 Creatinine 1.00 Estimated CrCl and GFR - Last 168 Hours 09/12/22 20:46 Estim Creat Clear Calc 63.6 Estimated GFR 58 Vancomycin Loading Dose: 1750 Current Vancomycin Dosing Regimen: 750 Q 12 Vancomycin Monitoring using AUC goal of 400 - 600 range with trough as surrogate marker: 452 Date and Time for next Vancomycin Level to be drawn: 09/14 @ 1000 Pharmacist Comments on Vancomycin Plan: Vancomycin dosing will take advantage of [employer] as a clinical decision support tool that uses Bayesian modeling to calculate individual patient's pharmacokinetic parameters and forecast the patient's drug concentration time course with the target goal AUC 24 range of 400 - 600 mg/L/hr.
[2022-09-12] MEDS: Potassium Chloride Packet 20 MEQ PACKET 40 MEQ PO (23:05)
[2022-09-12 23:06] VITALS: RESP 16
[2022-09-12] MEDS: Morphine Sulfate 4 MG/ML CARTRIDGE IVPUSH (23:06)
[2022-09-12] MEDS: Enoxaparin Sodium 40 MG/0.4 ML SYRINGE SUBCUT (23:06)
[2022-09-12] MEDS: 0.9 % Sodium Chloride Flush 3 ML SYRINGE IVFLUSH (23:08)
[2022-09-12] MEDS: cefEPime HCl 2 GM in 0.9 % Sodium Chloride 50 ML IV (23:08)
[2022-09-13] VITALS: BP 109/70; PULSE 97; RESP 18; TEMP 36.1; O2SAT 100
[2022-09-13] MEDS: vancomycin HCL 750 MG in 0.9 % Sodium Chloride 250 ML 265 MG IV (00:12)
[2022-09-13 00:56] VITALS: BMI 28.6
--- NOTE | 2022-09-13 01:32 | PC.NURSE ---
Addendum entered by Susana Matthews RN 09/13/22 03:50: Pt has burst of emotions at times as either weepy, frustrated, agitated and accusatory towards staff, either unable to pacify at times, reapproached, redirected, and needs attended. Original Note: Pt arrived from the ED at 0050 with on going Vanco, assisted to bed, alert and oriented, anxious and agitated as c/o bilat leg pain and asking for the next pain medicine, instructed that last Morphine was given an hour ago, pt got frustrated and more anxious then c/o not able to breathe, O2 sats =100% RA, LSC through out but dim, Dr. Best was made aware.
[2022-09-13] MEDS: Gabapentin 300 MG CAPSULE 600 MG PO ×2 (01:45→07:27)
[2022-09-13] MEDS: Albuterol Sulfate (0.083%) 2.5 MG/3 ML VIAL.NEB INHALE (02:17)
[2022-09-13 02:20] VITALS: PULSE 98; RESP 16; O2SAT 98
[2022-09-13] MEDS: Morphine Sulfate 4 MG/ML CARTRIDGE IVPUSH ×2 (03:35→07:30)
[2022-09-13 03:38] VITALS: BP 116/72; PULSE 95; RESP 17; TEMP 36.3; O2SAT 100
[2022-09-13] MEDS: cefEPime HCl 2 GM in 0.9 % Sodium Chloride 50 ML IV (05:55)
[2022-09-13 06:15] LABS: Basophils Percent Auto 0.2 % (0-2); Hematocrit 32.4 % (37.0-47.0); Hemoglobin 9.4 g/dl (12.0-16.0); Imm Gran Abs Auto 0.08 X10*3/uL (0.00-0.03); Imm Gran Pct Auto 0.7 % (0.0-0.4); Lymphocytes Absolute Auto 0.4 X10*3/uL (1.2-4.9); Lymphocytes Percent Auto 3.9 % (20-40); MANUAL DIFF FLAG SCAN; Mean Corpuscular Hemoglobin 19.3 pg (27.0-33.0); Mean Corpuscular Volume 66.5 fL (80.0-98.0); Monocytes Absolute Auto 0.1 X10*3/uL (0.1-1.2); Monocytes Percent Auto 0.8 % (2-11); Neutrophils Absolute Auto 10.3 x10*3/uL (2.0-8.3); Neutrophils Percent Auto 94.4 % (45-73); Platelet Count 224 X10*3/uL (160-400); Red Blood Count 4.87 X10*6/uL (4.20-5.50); Red Cell Distribution Width 21.5 % (11.0-16.0); SCAN SMEAR FLAG 1; White Blood Count 10.9 X10*3/uL (4.8-10.8)
[2022-09-13 06:48] LABS: SLIDE REVIEW VERIFIED
[2022-09-13 07:01] VITALS: BP 131/86; PULSE 92; RESP 16; TEMP 36.6; O2SAT 96
[2022-09-13 07:11] LABS: Anion Gap 16 (12-20); Blood Urea Nitrogen 20 mg/dL (9-16); Calcium 8.1 mg/dL (8.4-10.2); Carbon Dioxide 27 mmol/L (22-29); Chloride 97 mmol/L (96-108); Estimated Glomerular Filt Rate 51; Glucose Random 458 mg/dL (60-115); Potassium 4.6 mmol/L (3.3-5.1); Sodium 135 mmol/L (135-145)
[2022-09-13 07:14] LABS: Glucose, Whole Blood 470 mg/dL (60-115)
[2022-09-13] MEDS: Aspirin Enteric Coated 81 MG TABLET.DR PO (07:27)
[2022-09-13] MEDS: lisinopriL 20 MG TABLET PO (07:27)
[2022-09-13] MEDS: Furosemide 40 MG TABLET PO (07:27)
[2022-09-13] MEDS: 0.9 % Sodium Chloride Flush 3 ML SYRINGE IVFLUSH (07:28)
[2022-09-13] MEDS: Insulin Glargine,Hum.rec.anlog 100 UNIT/ML 10 ML VIAL 20 UNIT SUBCUT (07:28)
[2022-09-13] MEDS: Insulin Lispro 100 UNIT/ML 3 ML VIAL SUBCUT (07:29)
[2022-09-13 07:52] LABS: Estimated Average Glucose 240 mg/dL
--- NOTE | 2022-09-13 07:55 | HE.PHANOTE ---
RHIANNON KING CONTINUE CURRENT DOSE, NEXT LEVEL DUE 09/14 @1000
--- NOTE | 2022-09-13 08:32 | P.CONGS_ITS ---
History of Present Illness Consult details Consult date: 09/13/22 Narrative: 52-year-old female patient well known to the service with history of diabetic associated foot ulcers presenting with increased pain from her left foot. She was recently admitted for the same reason evaluated by vascular surgery. No surgical intervention was recommended for her vascular flow. Since her discha rge she reports increased foul-smelling discharge from the foot and subsequently returned to the emergency department. X-rays of the foot did indicate changes in the left great toe possibly suggestive of osteomyelitis. She also notes a painful ulcer in the heel the left foot with bloody discharge. She is ready to undergo an amputation if this would expedite healing. Review of Systems Review of Systems: Yes all other systems are reviewed and are negative Cardiovascular: Cardiovascular: Denies chest pain, Reports leg ulcers, Reports leg edema and Reports dyspnea on exertion Respiratory: Respiratory: Reports cough and Reports dyspnea on exertion Gastrointestinal: Gastrointestinal: Reports abdominal pain, Denies nausea and Denies vomiting Musculoskeletal: Musculoskeletal: Reports as per HPI Comments: Foot pain as noted in HPI PMFSH Past Medical History Medical History Asthma Atherosclerotic cardiovascular disease Atrial tachycardia COPD (chronic obstructive pulmonary disease) COVID-19 vaccine series completed Diabetes Diabetic toe ulcer Essential hypertension GERD (gastroesophageal reflux disease) Hypertension Left against medical advice Osteomyelitis PAD (peripheral artery disease) Family History Family History Mother Hx of CABG Sister CAD (coronary artery disease) Surgical History Surgical History History of esophagogastroduodenoscopy (EGD) History of toe surgery (09/22/21) Social History Social History Household Members: Family Housing: Apartment Do you presently have visiting nurse or other home services: No Unable to assess alcohol history related to: Refusing to respond Alcohol intake: never Patient Tobacco Use Status: Current everyday Tobacco user Tobacco use type: Cigarette Cigarette Packs Per Day: 0.5 Cigarettes Per Day: 3 Years Smoked: 43 e-Cigarette/Vaping Use: Currently Using Second Hand Smoke Exposure: Yes Advance Directives Date on File: 12/28/20 service: No Current occupational status: unemployed and disabled Meds Allergies Allergy/AdvReac Type Severity Reaction Status Date / Time Penicillins [PENICILLINS] Allergy Severe RASH Verified 08/27/22 17:42 amoxicillin [AMOXICILLIN] Allergy Intermediate HIVES Verified 08/27/22 17:42 codeine Allergy Itching Verified 08/27/22 17:42 Active Medications: Current Medications Acetaminophen (Acetaminophen 325 Mg Tablet) 650 mg PO Q6H PRN PRN Reason: Pain, Mild (Pain Scale 1-3) Albuterol Sulfate (Albuterol Sulfate (0.083%) 2.5 Mg/3 Ml Vial.Neb) 2.5 mg INHALE Q6H PRN PRN Reason: Wheezing Last Admin: 09/13/22 02:17 Dose: 2.5 mg Aspirin (Aspirin Enteric Coated 81 Mg Tablet.Dr) 81 mg PO DAILY [facility] Last Admin: 09/13/22 07:27 Dose: 81 mg Carvedilol (Carvedilol 3.125 Mg Tablet) 3.125 mg PO BID [facility]; Protocol Albuterol Sulfate 2.5 mg/ (Ipratropium [place] 0.5 mg) 0 mg INHALE RQ4H WHILE AWAKE PRN PRN Reason: SOB/wheezing Docusate Sodium (Docusate Sodium 100 Mg Capsule) 100 mg PO DAILY PRN PRN Reason: Constipation Enoxaparin Sodium (Enoxaparin Sodium 40 Mg/0.4 Ml Syringe) 40 mg SUBCUT Q24H [facility] Last Admin: 09/12/22 23:06 Dose: 40 mg Furosemide (Furosemide 40 Mg Tablet) 40 mg PO BIDWM MÓNICA; Protocol Last Admin: 09/13/22 07:27 Dose: 40 mg Gabapentin (Gabapentin 300 Mg Capsule) 600 mg PO BID [facility] Last Admin: 09/13/22 07:27 Dose: 600 mg Glucose (Glucose Gel 15 Gm Gel..Gram.) 15 gm PO Q15M PRN; Protocol PRN Reason: per Hypoglycemia Standing Ord. Cefepime HCl 2 gm/ Sodium (Chloride) 50 mls @ 100 mls/hr IV Q8H [facility] Last Infusion: 09/13/22 06:33 Dose: Infused Vancomycin HCl 750 mg/ Sodium (Chloride) 265 mls @ 265 mls/hr IV Q12H M[facility] Dextrose (D10) 250 mls @ 750 mls/hr IV Q15M PRN; Protocol PRN Reason: per Hypoglycemia Standing Ord. Insulin Glargine (Insulin Glargine,Hum.Rec.Anlog 100 Unit/Ml 10 Ml Vial) 20 unit SUBCUT BID [facility] Last Admin: 09/13/22 07:28 Dose: 20 unit Insulin Human Lispro (Insulin Lispro 100 Unit/Ml 3 Ml Vial) 0 unit SUBCUT QIDACHS [facility]; Protocol Last Admin: 09/13/22 07:29 Dose: 20 unit Lisinopril (Lisinopril 20 Mg Tablet) 20 mg PO DAILY [facility]; Protocol Last Admin: 09/13/22 07:27 Dose: 20 mg Montelukast Sodium (Montelukast Sodium 10 Mg Tablet) 10 mg PO BEDTIME [facility] Morphine Sulfate (Morphine Sulfate 4 Mg/Ml Cartridge) 4 mg IVPUSH Q4H PRN; Protocol PRN Reason: Pain, Severe (Pain Scale 7-10) Last Admin: 09/13/22 07:30 Dose: 4 mg Non-Formulary Medication (Umeclidinium [Incruse Ellipta]) 1 puff PO DAILY [facility] Ondansetron HCl (Ondansetron Hcl 4 Mg/2 Ml Vial) 4 mg IVPUSH Q8H PRN PRN Reason: Nausea and Vomiting Pharmacy Consult (Consult Rx Perform Med Rec) 1 each MISCELLANE ONCE PRN PRN Reason: Consult order Pharmacy Consult (Consult Rx Vancomycin Dosing) 1 each MISCELLANE DAILY PRN PRN Reason: Consult order Pharmacy Consult (Consult Rx Vancomycin Dosing) 1 each MISCELLANE DAILY PRN PRN Reason: Consult order Sodium Chloride (0.9 % Sodium Chloride Flush 3 Ml Syringe) 3 ml IVFLUSH QSHIFT [facility] Last Admin: 09/13/22 07:28 Dose: 3 ml Ticagrelor (Ticagrelor 90 Mg Tablet) 90 mg PO BID [facility] Home Medications Medication Instructions Recorded Confirmed Last Taken Type aspirin 81 mg tablet,delayed 1 tab PO DAILY 12/24/20 09/12/22 09/07/22 History release umeclidinium 62.5 mcg/actuation 1 puff PO DAILY 10/31/21 09/12/22 09/07/22 History blister powder for inhalation (Incruse Ellipta) montelukast 10 mg tablet 1 tab PO BEDTIME 02/13/22 09/12/22 09/07/22 History insulin glargine 100 unit/mL (3 20 unit subcut BID 03/23/22 09/12/22 09/07/22 History mL) subcutaneous pen (Lantus Solostar U-100 Insulin) gabapentin 300 mg capsule 2 cap PO BID 05/01/22 09/12/22 09/07/22 History albuterol sulfate 2.5 mg/3 mL 1 vial inhalation Q6H PRN Wheezing 06/19/22 09/12/22 09/07/22 History (0.083 %) solution for nebulization albuterol sulfate 90 mcg/actuation 1 - 2 puff inhalation Q4-6H PRN 06/19/22 09/12/22 09/07/22 History aerosol inhaler (Ventolin HFA) Wheezing lisinopril 20 mg tablet 20 mg PO DAILY 09/08/22 09/12/22 09/07/22 History furosemide 40 mg tablet 40 mg PO BID 09/12/22 09/12/22 Unknown History Physical Exam Vital Signs: Vital Signs: Last Vital Signs Temp 98 F 09/13/22 07:01 Pulse 92 09/13/22 07:01 Resp 16 09/13/22 07:01 BP 131/86 09/13/22 07:01 Pulse Ox 96 09/13/22 07:01 O2 Del Method Nasal Cannula 09/13/22 07:01 O2 Flow Rate 2 09/13/22 07:01 BMI result Body Mass Index 28.6 Const: General: comfortable, no acute distress and poor hygiene Nutritional Appearance: well nourished Orientation/consciousness: patient oriented x3 HEENT: Head: Yes normocephalic and Yes atraumatic Resp: Effort & Inspection: normal respiratory effort, no audible wheezes, no cough and no respiratory distress GI: Inspection: Yes normal to inspection Skin: General skin exam: crusts, dry skin, induration and scars Neuro: General: patient oriented x3 Extrem: Other: Examination of the left foot reveals some dry ulceration involving the great toe with no erythema or discharge appreciated. There is no tenderness to palpation of the digit. Second toe has been amputated no evidence of an open wound. In the heel along the lateral surface is noted a draining abscess with foul- smelling discharge. Area is tender to palpation and somewhat boggy. No skin necrosis is identified but minimal erythema is identified. Area will require debridement. Ankle/foot/toe images: 1. Site of abscess collection left heel Results Labs 09/13/22 05:08 09/13/22 05:08 Labs: Abnormal lab results 09/12/22 09/12/22 09/12/22 Range/Units 19:04 19:39 19:39 WBC 12.3 H (4.8-10.8) X10*3/uL Hgb 9.0 L (12.0-16.0) g/dl Hct 31.0 L (37.0-47.0) % MCV 66.8 L (80.0-98.0) fL MCH 19.4 L (27.0-33.0) pg MCHC 29.0 L (31.0-35.0) g/dl RDW 21.3 H (11.0-16.0) % Immature Gran % (Auto) 0.7 H (0.0-0.4) % Neut % (Auto) 80.7 H (45-73) % Lymph % (Auto) 12.1 L (20-40) % [place] % (Auto) (2-11) % Lymph # (Auto) (1.2-4.9) X10*3/uL Abs Immat Gran (auto) 0.09 H (0.00-0.03) X10*3/uL Absolute Neuts (auto) 9.9 H (2.0-8.3) x10*3/uL Potassium (3.3-5.1) mmol/L Carbon Dioxide (22-29) mmol/L BUN (9-16) mg/dL POC Glucose 215 H (60-115) mg/dL Random Glucose (60-115) mg/dL Lactic Acid 2.3 H* (0.5-2.0) mmol/L Calcium (8.4-10.2) mg/dL Total Bilirubin (0.0-1.0) mg/dL Direct Bilirubin (0.0-0.5) mg/dL Troponin I High Sens (<3.5-17.0) ng/L Total Protein (6.5-8.0) g/dL Albumin (3.5-5.0) g/dL Lipase (8-78) U/L 09/12/22 09/12/22 09/12/22 Range/Units 19:39 20:46 22:19 WBC (4.8-10.8) X10*3/uL Hgb (12.0-16.0) g/dl Hct (37.0-47.0) % MCV (80.0-98.0) fL MCH (27.0-33.0) pg MCHC (31.0-35.0) g/dl RDW (11.0-16.0) % Immature Gran % (Auto) (0.0-0.4) % Neut % (Auto) (45-73) % Lymph % (Auto) (20-40) % [place] % (Auto) (2-11) % Lymph # (Auto) (1.2-4.9) X10*3/uL Abs Immat Gran (auto) (0.00-0.03) X10*3/uL Absolute Neuts (auto) (2.0-8.3) x10*3/uL Potassium 3.1 L D (3.3-5.1) mmol/L Carbon Dioxide 31 H (22-29) mmol/L BUN (9-16) mg/dL POC Glucose (60-115) mg/dL Random Glucose 234 H (60-115) mg/dL Lactic Acid (0.5-2.0) mmol/L Calcium 8.1 L (8.4-10.2) mg/dL Total Bilirubin 1.5 H (0.0-1.0) mg/dL Direct Bilirubin 0.7 H (0.0-0.5) mg/dL Troponin I High Sens 184.7 H* D 188.5 H* (<3.5-17.0) ng/L Total Protein 6.0 L (6.5-8.0) g/dL Albumin 2.9 L (3.5-5.0) g/dL Lipase 7 L (8-78) U/L 09/13/22 09/13/22 09/13/22 Range/Units 05:08 05:08 07:03 WBC 10.9 H (4.8-10.8) X10*3/uL Hgb 9.4 L (12.0-16.0) g/dl Hct 32.4 L (37.0-47.0) % MCV 66.5 L (80.0-98.0) fL MCH 19.3 L (27.0-33.0) pg MCHC 29.0 L (31.0-35.0) g/dl RDW 21.5 H (11.0-16.0) % Immature Gran % (Auto) 0.7 H (0.0-0.4) % Neut % (Auto) 94.4 H (45-73) % Lymph % (Auto) 3.9 L (20-40) % [place] % (Auto) 0.8 L (2-11) % Lymph # (Auto) 0.4 L (1.2-4.9) X10*3/uL Abs Immat Gran (auto) 0.08 H (0.00-0.03) X10*3/uL Absolute Neuts (auto) 10.3 H (2.0-8.3) x10*3/uL Potassium (3.3-5.1) mmol/L Carbon Dioxide (22-29) mmol/L BUN 20 H (9-16) mg/dL POC Glucose 470 H* (60-115) mg/dL Random Glucose 458 H* (60-115) mg/dL Lactic Acid (0.5-2.0) mmol/L Calcium 8.1 L (8.4-10.2) mg/dL Total Bilirubin (0.0-1.0) mg/dL Direct Bilirubin (0.0-0.5) mg/dL Troponin I High Sens (<3.5-17.0) ng/L Total Protein (6.5-8.0) g/dL Albumin (3.5-5.0) g/dL Lipase (8-78) U/L Short CBC 09/12/22 09/13/22 Range/Units 19:39 05:08 WBC 12.3 H 10.9 H (4.8-10.8) X10*3/uL Hgb 9.0 L 9.4 L (12.0-16.0) g/dl Hct 31.0 L 32.4 L (37.0-47.0) % Plt Count 220 224 (160-400) X10*3/uL BMP 09/12/22 09/13/22 20:46 05:08 Sodium 137 135 Potassium 3.1 L D 4.6 D Chloride 96 97 Carbon Dioxide 31 H 27 BUN 15 20 H Creatinine 1.00 1.12 Calcium 8.1 L 8.1 L Liver Function 09/12/22 Range/Units 20:46 Total Bilirubin 1.5 H (0.0-1.0) mg/dL Direct Bilirubin 0.7 H (0.0-0.5) mg/dL AST 10 (5-31) U/L ALT 13 (0-31) U/L Alkaline Phosphatase 97 (39-117) U/L Albumin 2.9 L (3.5-5.0) g/dL All other labs normal. Assessment and Plan (1) 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: Status: Acute (2) Diabetic foot ulcer: Status: Acute Plan 52-year-old female patient well known to service with bilateral diabetic foot ulcers presenting with a painful ulcer of the left heel and great toe. Findings are suggestive of an abscess of the heel which is draining foul-smelling discharge. This would ideally require debridement in the OR. The great toe appears more chronic with no outward signs of osteomyelitis although x-rays do seemed indicate possible osteo. Please note: Patient subsequently signed out AMA this afternoon prior to debridement. Time Spent With Patient Time: Total time managing care of this patient today ____ minutes. Procedures Date of Service Date of Service: 09/13/22
[2022-09-13] MEDS: carvediloL 3.125 MG TABLET PO (09:33)
[2022-09-13] MEDS: Ticagrelor 90 MG TABLET PO (09:33)
--- NOTE | 2022-09-13 10:40 | PC.NURSE ---
Due to family issues at home, pt left ama with . Dr Jorgensen made aware. iv was removed. risks of leaving explained. Pt states understandig
--- NOTE | 2022-09-13 12:43 | MHC.CM.PN ---
pt left ama
--- NOTE | 2022-09-13 14:18 | P.DS_ITS ---
DS: Providers Provider Date of Service: 09/13/22 Date of admission: 09/12/22 22:38 Date of discharge: 09/13/22 Primary care physician: Emilie Dangelo MD Consults: 09/12/22 22:33 Consult to General Surgery Routine Consulting Provider: [facility] [place] [facility] Reason for consultation: chronic osteo, foot ulcer, agreeable to amputation Has provider been notified: No DS: Diagnosis Discharge Diagnosis (1) 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: Status: Acute (2) Diabetic foot ulcer: Status: Acute (3) Cellulitis in diabetic foot: Status: Acute (4) Left against medical advice: Status: Acute (5) Acute non-ST elevation myocardial infarction (NSTEMI): Status: Acute DS: Summary Hospital Course Hospital Course: from admission H+P by hospitalist Tanner Best, 09/12/22: this is a 52-year-old female with past medical history of asthma / COPD, heart failure with reserved ejection fraction, diabetes, neuropathy, HTN, P 80, NSTEMI, schema cardiomyopathy, CAD status post STEMI in August of this year? who 0 was recently admitted to the hospital on September 08, and left against medical advice on September 10 for management of chronic osteomyelitis as well as cellulitis comes in today stating worsening wound and uncontrolled pain.? Of note patient was seen by infectious disease as well as by vascular surgery who recommended amputation and several days of antibiotics and discharged with doxycycline, patient did not want to stay for IV antibiotics, and was discharged on doxycycline.? Patient reports compliance with the doxycycline, but states that her pain is unbearable, she also states that she has increased drainage from the heel wound, as well as significant pain in her right big toe.? She states no fever, no chills, no nausea or vomiting, no diarrhea constipation, no urinary symptoms and no lower extremity edema.? No chest pain, she has chronic shortness of breath with chronic cough and sputum production that has not worsened.? No headache or change in vision, no weakness numbness or tingling.? On arrival to the ED hemodynamically stable with no evidence of fever, no abnormal vitals Labs are significant for WBC count of 12.3,? potassium 3.1, lactic acid of 2.3 improved after IV fluids, troponin of? 184 increased to 188 otherwise unremarkable labs.? Chest x-ray showing? ?Airspace disease which was present on previous x-ray ?patient is willing to undergo amputation at this time with general surgery only, patient was started on IV antibiotics and will be admitted for further management She was admitted to the med/surg unit on IV antibiotics. Surgery was consulted and was planning operative debridement of what was likely an abscess of the heel. However, quite suddenly, she decided to sign out of the hospital AGAINST MEDICAL ADVICE. She could not be dissuaded from doing so and was aware of the risk of worsening infection resulting in morbidity and mortality. She was advised to return to the hospital as soon as possible to resume treatment. Time Spent with Patient Time attestation: Total time managing care of this patient today __35__ minutes. Discharge coordination time: Greater than 30 minutes Quality: Safe Use of Opioids Does Pt have an Active Cancer Diagnosis on the Problem List?: No Quality: Stroke Does the patient have a stroke diagnosis?: No Physical Exam Vital Signs: Vital Signs: Last Vital Signs Temp 98 F 09/13/22 07:01 Pulse 92 09/13/22 07:01 Resp 16 09/13/22 07:01 BP 131/86 09/13/22 07:01 Pulse Ox 96 09/13/22 07:01 O2 Del Method Nasal Cannula 09/13/22 07:01 O2 Flow Rate 2 09/13/22 07:01 BMI result Body Mass Index 28.6 Gen: in no acute distress HEENT: sclera anicteric, moist mucus membranes Neck: supple Lungs: clear to auscultation bilaterally Heart: regular rate and rhythm, no murmurs Abd: soft, non-tender, non-distended Ext: no edema Skin: warm/well-perfused, multiple wounds in left foot including 1 at heel with serosanguinous drainage Neuro: alert and oriented x3, no focal findings Psych: appropriate affect DS: Data Data Completed and Pending Completed studies during hospitalization [Text1]: Procedures Drainage of Left Foot Skin, External Approach (11/18/21) Excision of Left Foot Subcutaneous Tissue and Fascia, Open Approach (11/18/21) Insertion of Infusion Device into Superior Vena Cava, Percutaneous Approach (08/21/21) Transfusion of Nonautologous Red Blood Cells into Peripheral Vein, Percutaneous Approach (06/19/22) Labs on day of discharge: Laboratory Results - last 24 hr 09/12/22 09/12/22 09/12/22 19:04 19:39 19:39 WBC 12.3 H RBC 4.64 Hgb 9.0 L Hct 31.0 L MCV 66.8 L MCH 19.4 L MCHC 29.0 L RDW 21.3 H Plt Count 220 MPV Not Reportable Immature Gran % (Auto) 0.7 H Neut % (Auto) 80.7 H Lymph % (Auto) 12.1 L [place] % (Auto) 5.5 Eos % (Auto) 0.6 Baso % (Auto) 0.4 Lymph # (Auto) 1.5 [place] # (Auto) 0.7 Eos # (Auto) 0.1 Baso # (Auto) 0.1 Abs Immat Gran (auto) 0.09 H Absolute Neuts (auto) 9.9 H Absolute Nucleated RBC 0.000 Nucleated RBC % (auto) 0.0 Smear Tech's Comments VERIFIED Sodium Potassium Chloride Carbon Dioxide Anion Gap BUN Creatinine Estim Creat Clear Calc Estimated GFR POC Glucose 215 H Random Glucose Estimat Average Glucose Hemoglobin A1c % Lactic Acid 2.3 H* Lactic Acid F/U @ 2Hr Calcium Total Bilirubin Direct Bilirubin AST ALT Alkaline Phosphatase Troponin I High Sens C-Reactive Protein Total Protein Albumin Lipase COVID-19 (KATHLEEN) COVID-19 [facility] 09/12/22 09/12/22 09/12/22 19:39 19:39 20:46 WBC RBC Hgb Hct MCV MCH MCHC RDW Plt Count MPV Immature Gran % (Auto) Neut % (Auto) Lymph % (Auto) [place] % (Auto) Eos % (Auto) Baso % (Auto) Lymph # (Auto) [place] # (Auto) Eos # (Auto) Baso # (Auto) Abs Immat Gran (auto) Absolute Neuts (auto) Absolute Nucleated RBC Nucleated RBC % (auto) Smear Tech's Comments Sodium 137 Potassium 3.1 L D Chloride 96 Carbon Dioxide 31 H Anion Gap 13 BUN 15 Creatinine 1.00 Estim Creat Clear Calc 63.6 Estimated GFR 58 POC Glucose Random Glucose 234 H Estimat Average Glucose Hemoglobin A1c % Lactic Acid Lactic Acid F/U @ 2Hr Calcium 8.1 L Total Bilirubin 1.5 H Direct Bilirubin 0.7 H AST 10 ALT 13 Alkaline Phosphatase 97 Troponin I High Sens 184.7 H* D C-Reactive Protein Total Protein 6.0 L Albumin 2.9 L Lipase 7 L COVID-19 (KATHLEEN) Negative COVID-19 Clin Com See Note 09/12/22 09/12/22 09/13/22 22:19 22:19 05:08 WBC RBC Hgb Hct MCV MCH MCHC RDW Plt Count MPV Immature Gran % (Auto) Neut % (Auto) Lymph % (Auto) [place] % (Auto) Eos % (Auto) Baso % (Auto) Lymph # (Auto) [place] # (Auto) Eos # (Auto) Baso # (Auto) Abs Immat Gran (auto) Absolute Neuts (auto) Absolute Nucleated RBC Nucleated RBC % (auto) Smear Tech's Comments Sodium 135 Potassium 4.6 D Chloride 97 Carbon Dioxide 27 Anion Gap 16 BUN 20 H Creatinine 1.12 Estim Creat Clear Calc 57.0 Estimated GFR 51 POC Glucose Random Glucose 458 H* Estimat Average Glucose Hemoglobin A1c % Lactic Acid Lactic Acid F/U @ 2Hr 1.5 Calcium 8.1 L Total Bilirubin Direct Bilirubin AST ALT Alkaline Phosphatase Troponin I High Sens 188.5 H* C-Reactive Protein 6.90 H Total Protein Albumin Lipase COVID-19 (KATHLEEN) COVID-19 Clin Com 09/13/22 09/13/22 09/13/22 05:08 05:08 07:03 WBC 10.9 H RBC 4.87 Hgb 9.4 L Hct 32.4 L MCV 66.5 L MCH 19.3 L MCHC 29.0 L RDW 21.5 H Plt Count 224 MPV Not Reportable Immature Gran % (Auto) 0.7 H Neut % (Auto) 94.4 H Lymph % (Auto) 3.9 L [place] % (Auto) 0.8 L Eos % (Auto) 0.0 Baso % (Auto) 0.2 Lymph # (Auto) 0.4 L [place] # (Auto) 0.1 Eos # (Auto) 0.0 Baso # (Auto) 0.0 Abs Immat Gran (auto) 0.08 H Absolute Neuts (auto) 10.3 H Absolute Nucleated RBC 0.000 Nucleated RBC % (auto) 0.0 Smear Tech's Comments VERIFIED Sodium Potassium Chloride Carbon Dioxide Anion Gap BUN Creatinine Estim Creat Clear Calc Estimated GFR POC Glucose 470 H* Random Glucose Estimat Average Glucose 240 Hemoglobin A1c % 10.0 Lactic Acid Lactic Acid F/U @ 2Hr Calcium Total Bilirubin Direct Bilirubin AST ALT Alkaline Phosphatase Troponin I High Sens C-Reactive Protein Total Protein Albumin Lipase COVID-19 (KATHLEEN) COVID-19 Clin Com Discharge Plan Discharge Patient Disposition: Left Against Medical Advice Discharge Diagnosis: LEFT AGAINST MEDICAL ADVICE for chronic osteomyelitis, acute cellulitis Referrals: Physician,None [Physician] - 1 Week Discharge Medications: No Action aspirin 81 mg tablet,delayed release (DR/EC) 1 tab PO DAILY Incruse Ellipta 62.5 mcg/actuation blister with device 1 puff PO DAILY montelukast 10 mg tablet 1 tab PO BEDTIME insulin glargine [Lantus Solostar U-100 Insulin] 100 unit/mL (3 mL) insulin pen 20 unit subcut BID gabapentin 300 mg capsule 2 cap PO BID albuterol sulfate 2.5 mg /3 mL (0.083 %) solution for nebulization 1 vial inhalation Q6H PRN (Reason: Wheezing) albuterol sulfate [Ventolin HFA] 90 mcg/actuation HFA aerosol inhaler 1 - 2 puff INHALATION Q4-6H PRN (Reason: Wheezing) lisinopril 20 mg tablet 20 mg PO DAILY doxycycline hyclate 100 mg tablet 100 mg PO BID 10 Days Qty: 20 0RF furosemide 40 mg Tablet 40 mg PO BID Discharge Orders: Discharge Order (Routine); Ordered 09/13/22 Ordered By: Tequila Jorgensen Care Plan Goals: cure of infection Health Concerns: LEFT AGAINST MEDICAL ADVICE for chronic osteomyelitis, acute cellulitis Plan of Treatment: Return to the hospital [facility] to resume treatment Assessment: See Discharge Summary. Discharge Date/Time: 09/13/22 10:43
== END 2022-09-13 10:43 | disposition left against medical advice (07) | DRG 344 ==
LOC: HO.ED 21:28 → HO.EDOVER 23:16 → HO.S3 23:33
PROVIDERS: Admitting Provider Internal Medicine; Emergency Provider Emergency Medicine; PCP Internal Medicine; Visit Provider Family Medicine
DX: E11.69 Type 2 diabetes mellitus with other specified complication (principal); M86.672 Other chronic osteomyelitis, left ankle and foot; E11.51 Type 2 diabetes mellitus with diabetic peripheral angiopathy without gangrene; E11.621 Type 2 diabetes mellitus with foot ulcer; L97.529 Non-pressure chronic ulcer of other part of left foot with unspecified severity; L02.612 Cutaneous abscess of left foot; I25.10 Atherosclerotic heart disease of native coronary artery without angina pectoris; F17.210 Nicotine dependence, cigarettes, uncomplicated; L03.032 Cellulitis of left toe; I50.22 Chronic systolic (congestive) heart failure; I11.0 Hypertensive heart disease with heart failure; Z20.822 Contact with and (suspected) exposure to COVID-19; J44.9 Chronic obstructive pulmonary disease, unspecified; Z71.6 Tobacco abuse counseling; Z88.0 Allergy status to penicillin; Z88.5 Allergy status to narcotic agent; Z79.4 Long term (current) use of insulin; Z79.82 Long term (current) use of aspirin; Z79.899 Other long term (current) drug therapy
CPT/HCPCS: 36415; 71045; 80048; 80076; 82947; 83036; 83605; 83690; 84484; 85025; 86140; 87040; 87635; 93005; 94640; 99285; J0692; J1170; J1650; J2270; J2930; J3370; J3475

== ENCOUNTER 2022-09-14 20:39 | Emergency (ER) | payer OTHER, SELFPAY | END 2022-09-14 22:40 | disposition left against medical advice (07) | PROVIDERS: Emergency Provider Emergency Medicine | DX: L03.116 Cellulitis of left lower limb (principal) ==

== ENCOUNTER 2022-09-14 23:58 | Inpatient (IN) | payer OTHER, SELFPAY ==
--- NOTE | ~2022-09-14 | CT_ITS ---
EXAMINATION: CT FOOT WITHOUT CONTRAST, LEFT CLINICAL INFORMATION: Nonhealing wound COMPARISON: Radiographs 09/08/2022 TECHNIQUE: CT of the left foot is performed following intravenous administration of 85 mL Omnipaque 350 iodinated contrast. Sagittal and coronal reformats were performed. This CT examination was performed using dose optimization techniques as appropriate, variously including the following: *Automated exposure control *Adjustment of mA and/or kV according to patient size (this includes techniques or standardized protocols for targeted exams where dose is matched to indication/reason for exam; i.e. extremities or head) *Use of iterative reconstruction technique DLP: 178 FINDINGS: There is diffuse subcutaneous edema with a skin ulceration involving the posterior aspect of the heel with foci of gas extending throughout the underlying subcutaneous fat. There is no peripherally enhancing collection to indicate an abscess. Although there our foci of air in close proximity to the posterolateral aspect of the calcaneus, there is no cortical erosion or periosteal reaction to indicate osteomyelitis. The Achilles tendon insertion and plantar fascia origin appear intact. Insertional enthesopathy. Probable healed ulcer and scarring at the plantar/medial aspect of the heel pad. CT/CT foot LT w IV con IMPRESSION: 1. There is diffuse subcutaneous edema with a skin ulceration involving the posterior aspect of the heel with foci of gas extending throughout the underlying subcutaneous fat. There is no peripherally enhancing collection to indicate an abscess. No CT evidence of osteomyelitis. If there is continued clinical concern, MRI would be more sensitive. 2. Probable healed ulcer and scarring at the plantar/medial aspect of the heel pad.
[2022-09-15] VITALS (7 sets, daily range): BP systolic 114–139; BP diastolic 69–77; PULSE 87–107; RESP 16–18; TEMP 36.2–36.9; O2SAT 97–100; BMI 26.5; BMI 31.5
--- NOTE | 2022-09-15 | ECG_ITS ---
Test Reason : SOB Blood Pressure : / mmHG Vent. Rate : 091 BPM Atrial Rate : 091 BPM P-R Int : 148 ms QRS Dur : 090 ms QT Int : 376 ms P-R-T Axes : 067 100 067 degrees QTc Int : 462 ms Normal sinus rhythm Rightward axis Low voltage QRS Cannot rule out Anterior infarct (cited on or before 13-JUN-2022) Abnormal ECG When compared with ECG of 12-SEP-2022 19:47, No significant change was found Referred By: Matti Lindquist Electronically Signed By:LUANN SALAZAR MD
--- NOTE | 2022-09-15 00:52 | PC.NURSE ---
Pt arrived via triage for increased sob and bilateral foot wounds. Pt was seen yesterday left ama. labs and iv established
[2022-09-15 00:53] LABS: Basophils Percent Auto 0.1 % (0-2); Mean Corpuscular HGB Conc 28.8 g/dl (31.0-35.0); Mean Corpuscular Hemoglobin 19.7 pg (27.0-33.0); PLT ABN DIST 1; SCAN SMEAR FLAG 1
[2022-09-15 00:55] LABS: Eosinophils Percent Auto 0.3 % (0-4); Hemoglobin 9.2 g/dl (12.0-16.0); Imm Gran Abs Auto 0.12 X10*3/uL (0.00-0.03); Imm Gran Pct Auto 0.8 % (0.0-0.4); Lymphocytes Absolute Auto 1.6 X10*3/uL (1.2-4.9); Lymphocytes Percent Auto 9.8 % (20-40); Mean Corpuscular Volume 68.5 fL (80.0-98.0); Monocytes Absolute Auto 0.7 X10*3/uL (0.1-1.2); Monocytes Percent Auto 4.5 % (2-11); Neutrophils Absolute Auto 13.5 x10*3/uL (2.0-8.3); Neutrophils Percent Auto 84.5 % (45-73); Platelet Count 236 X10*3/uL (160-400); Red Blood Count 4.67 X10*6/uL (4.20-5.50)
[2022-09-15 01:00] LABS: MANUAL DIFF FLAG NO; Mean Platelet Volume 11.4 fL (9.4-12.3)
--- NOTE | 2022-09-15 01:07 | ED.GENADULT ---
HPI - General Adult General Chief complaint: General Medical Stated complaint: Trouble breathing, foot problems Time Seen by Provider: 09/15/22 00:55 Source: patient Mode of arrival: EMS Limitations: no limitations History of Present Illness HPI narrative: 52-year-old female with past medical history of COPD, HFrEF, uncontrolled diabetes, neuropathy, HTN, NSTEMI, CAD status post STEMI with frequent ER visits and admissions left AMA on 09/13 for osteomyelitis of the left heel vascular surgeon advised amputation. Patient says that had a family emergency that especially left. Comes here with foul-smelling left heel wound with elevated blood sugar to 710. Says that she missed her insulin the evening. No vomiting no fever asking for pain medication for pain Related Data Home Medications Medication Instructions Recorded Confirmed aspirin 81 mg tablet,delayed 1 tab PO DAILY 12/24/20 09/15/22 release umeclidinium 62.5 mcg/actuation 1 puff PO DAILY 10/31/21 09/15/22 blister powder for inhalation (Incruse Ellipta) montelukast 10 mg tablet 1 tab PO BEDTIME 02/13/22 09/15/22 insulin glargine 100 unit/mL (3 20 unit subcut BID 03/23/22 09/15/22 mL) subcutaneous pen (Lantus Solostar U-100 Insulin) gabapentin 300 mg capsule 2 cap PO BID 05/01/22 09/15/22 albuterol sulfate 2.5 mg/3 mL 1 vial inhalation Q6H PRN Wheezing 06/19/22 09/15/22 (0.083 %) solution for nebulization albuterol sulfate 90 mcg/actuation 1 - 2 puff inhalation Q4-6H PRN 06/19/22 09/15/22 aerosol inhaler (Ventolin HFA) Wheezing lisinopril 20 mg tablet 20 mg PO DAILY 09/08/22 09/15/22 furosemide 40 mg tablet 40 mg PO BID 09/12/22 09/15/22 Previous Rx's Medication Instructions Recorded doxycycline hyclate 100 mg tablet 100 mg PO BID 10 days #20 tabs 09/10/22 Allergies Allergy/AdvReac Type Severity Reaction Status Date / Time Penicillins [PENICILLINS] Allergy Severe RASH Verified 08/27/22 17:42 amoxicillin [AMOXICILLIN] Allergy Intermediate HIVES Verified 03/18/23 17:42 codeine Allergy Itching Verified 08/27/22 17:42 Review of Systems Review of Systems: Yes all other systems are reviewed and are negative [facility] Past Medical History Medical History Asthma Atherosclerotic cardiovascular disease Atrial tachycardia COPD (chronic obstructive pulmonary disease) COVID-19 vaccine series completed Diabetes Diabetic toe ulcer Essential hypertension GERD (gastroesophageal reflux disease) Hypertension Left against medical advice Left against medical advice Osteomyelitis PAD (peripheral artery disease) Surgical History History of esophagogastroduodenoscopy (EGD) History of toe surgery (09/22/21) Family History Family History Mother Hx of CABG Sister CAD (coronary artery disease) Social History Social History Household Members: Family Housing: Apartment Do you presently have visiting nurse or other home services: No Unable to assess alcohol history related to: Refusing to respond Alcohol intake: never Patient Tobacco Use Status: Current everyday Tobacco user Tobacco use type: Cigarette Cigarette Packs Per Day: 0.5 Cigarettes Per Day: 3 Years Smoked: 43 e-Cigarette/Vaping Use: Currently Using Second Hand Smoke Exposure: Yes Advance Directives: No Advance Directives Information Provided: No Advance Directives Date on File: 12/28/20 service: No Current occupational status: unemployed and disabled Physical Exam ED Vital Signs: Vital Signs - 24 hr 09/15/22 00:19 Temperature 98.4 F Pulse Rate 107 H Respiratory Rate 16 Blood Pressure 123/77 Pulse Oximetry 100 Oxygen Delivery Method Room Air BMI result Body Mass Index 26.5 Appearance: Alert. Oriented X3. No acute distress. Eyes: PERRLA, No Nystagmus ENT: Pharynx normal. Oral Mucosa moist Neck: Normal inspection. Neck supple. CVS: Normal heart rate and rhythm. Pulses normal. Respiratory: No respiratory distress. Equal air entry bilateral, no wheezing/rales/rhonchi Abdomen: Soft and nontender. Bowel sounds are present, no mass palpable, no CVA tenderness Skin: Skin warm and dry. Normal skin color. Normal skin turgor. Extremities: No lower extremity edema. No calf tenderness Left foot deep wound in the heel with fall swelling discharge picture as attached Neuro: Oriented X 3. No motor deficit. No sensory deficit.No cerebellar signs , cranial nerves II-XII intact Medications Administered Generic Name Dose Route Start Last Admin Trade Name Freq PRN Reason Stop Dose Admin Enoxaparin Sodium 40 mg 09/15/22 06:00 09/15/22 05:17 Enoxaparin Sodium 40 Mg/0.4 Ml Syringe SUBCUT 40 mg Q24H MÓNICA Administration Cefepime HCl 2 gm/ Sodium 50 mls @ 100 mls/hr 09/15/22 06:00 09/15/22 05:57 Chloride IV Infused Q8H MÓNICA Infusion Morphine Sulfate 4 mg 09/15/22 01:49 09/15/22 06:50 Morphine Sulfate 4 Mg/Ml Cartridge IVPUSH 4 mg Q4H PRN Administration Pain, Severe (Pain Scale 7-10) Protocol Discontinued Medications Generic Name Dose Route Start Last Admin Trade Name Freq PRN Reason Stop Dose Admin Hydromorphone HCl 1 mg 09/15/22 01:54 09/15/22 01:59 Hydromorphone Hcl 1 Mg/Ml Syringe IVPUSH 09/15/22 01:55 1 mg ONCE ONE Administration Protocol Sodium Chloride 1,000 mls @ 999 mls/hr 09/15/22 01:18 09/15/22 03:28 Ns IV 09/15/22 02:18 Infused .Q1H1M ONE Infusion Piperacillin Sod/Tazobactam 50 mls @ 100 mls/hr 09/15/22 01:20 09/15/22 02:30 Sod 3.375 gm/ Sodium Chloride IV 09/15/22 01:49 Infused ONCE ONE Infusion Vancomycin HCl 1,000 mg/ 535 mls @ 267.5 mls/hr 09/15/22 02:00 09/15/22 04:40 Vancomycin HCl 750 mg/ Sodium IV 09/15/22 03:59 Infused Chloride ONCE ONE Infusion Sodium Chloride 1,000 mls @ 999 mls/hr 09/15/22 02:24 09/15/22 04:41 Ns IV 09/15/22 03:24 Infused .Q1H1M ONE Infusion Insulin Glargine 20 unit 09/15/22 01:18 09/15/22 01:42 Insulin Glargine,Hum.Rec.Anlog 100 Unit/Ml 10 Ml Vial SUBCUT 09/15/22 01:19 20 unit ONCE ONE Administration Insulin Human Lispro 14 unit 09/15/22 01:18 09/15/22 01:42 Insulin Lispro 100 Unit/Ml 3 Ml Vial SUBCUT 09/15/22 01:19 14 unit ONCE ONE Administration Insulin Human Lispro 14 unit 09/15/22 02:24 09/15/22 02:43 Insulin Lispro 100 Unit/Ml 3 Ml Vial SUBCUT 09/15/22 02:25 14 unit ONCE ONE Administration Medical Decision Making Medical Decision Making MDM Narrative: Patient with left calcaneum osteomyelitis diabetes with hyperglycemia noncompliant will admit patient for IV antibiotics and surgical amputation Differential Diagnosis Osteomyelitis/diabetic ketoacidosis/hyperglycemia Consult Healthcare Provider Management of the patient was discussed with: Hospitalist Lab Data [facility] Lab Attestation statement: I reviewed the patient's lab results. 09/15/22 00:44 09/15/22 00:44 Labs: Lab Results 09/15/22 09/15/22 09/15/22 Range/Units 00:44 00:44 00:44 WBC 16.0 H (4.8-10.8) X10*3/uL RBC 4.67 (4.20-5.50) X10*6/uL Hgb 9.2 L (12.0-16.0) g/dl Hct 32.0 L (37.0-47.0) % MCV 68.5 L (80.0-98.0) fL MCH 19.7 L (27.0-33.0) pg MCHC 28.8 L (31.0-35.0) g/dl RDW 22.0 H (11.0-16.0) % Plt Count 236 (160-400) X10*3/uL MPV 11.4 (9.4-12.3) fL Immature Gran % (Auto) 0.8 H (0.0-0.4) % Neut % (Auto) 84.5 H (45-73) % Lymph % (Auto) 9.8 L (20-40) % [place] % (Auto) 4.5 (2-11) % Eos % (Auto) 0.3 (0-4) % Baso % (Auto) 0.1 (0-2) % Lymph # (Auto) 1.6 (1.2-4.9) X10*3/uL [place] # (Auto) 0.7 (0.1-1.2) X10*3/uL Eos # (Auto) 0.0 (0.0-0.4) X10*3/uL Baso # (Auto) 0.0 (0.0-0.2) X10*3/uL Abs Immat Gran (auto) 0.12 H (0.00-0.03) X10*3/uL Absolute Neuts (auto) 13.5 H (2.0-8.3) x10*3/uL Absolute Nucleated RBC 0.000 (0.0-0.012) X10*3/uL Nucleated RBC % (auto) 0.0 (0.0-0.2) /100WBC VBG pH (7.32-7.43) VBG pCO2 mmHg VBG pO2 mmHg VBG HCO3 (22-26) mmol/L VBG O2 Saturation VBG Base Excess mmol/L Sodium 133 L (135-145) mmol/L Potassium 5.7 H D (3.3-5.1) mmol/L Chloride 96 (96-108) mmol/L Carbon Dioxide 26 (22-29) mmol/L Anion Gap 17 (12-20) BUN 27 H (9-16) mg/dL Creatinine 1.37 (0.5-1.4) mg/dL Estim Creat Clear Calc 45.0 Estimated GFR 41 Random Glucose 710 H* (60-115) mg/dL Lactic Acid F/U @ 2Hr 3.4 H* (0.5-2.0) mmol/L Calcium 8.4 (8.4-10.2) mg/dL Total Bilirubin 1.0 (0.0-1.0) mg/dL AST 26 (5-31) U/L ALT 15 (0-31) U/L Alkaline Phosphatase 85 (39-117) U/L Total Protein 6.3 L (6.5-8.0) g/dL Albumin 2.9 L (3.5-5.0) g/dL Acetone, Qual Negative (Negative) 09/15/22 Range/Units 01:32 WBC (4.8-10.8) X10*3/uL RBC (4.20-5.50) X10*6/uL Hgb (12.0-16.0) g/dl Hct (37.0-47.0) % MCV (80.0-98.0) fL MCH (27.0-33.0) pg MCHC (31.0-35.0) g/dl RDW (11.0-16.0) % Plt Count (160-400) X10*3/uL MPV (9.4-12.3) fL Immature Gran % (Auto) (0.0-0.4) % Neut % (Auto) (45-73) % Lymph % (Auto) (20-40) % [place] % (Auto) (2-11) % Eos % (Auto) (0-4) % Baso % (Auto) (0-2) % Lymph # (Auto) (1.2-4.9) X10*3/uL [place] # (Auto) (0.1-1.2) X10*3/uL Eos # (Auto) (0.0-0.4) X10*3/uL Baso # (Auto) (0.0-0.2) X10*3/uL Abs Immat Gran (auto) (0.00-0.03) X10*3/uL Absolute Neuts (auto) (2.0-8.3) x10*3/uL Absolute Nucleated RBC (0.0-0.012) X10*3/uL Nucleated RBC % (auto) (0.0-0.2) /100WBC VBG pH 7.41 (7.32-7.43) VBG pCO2 40 mmHg VBG pO2 43 mmHg VBG HCO3 25 (22-26) mmol/L VBG O2 Saturation TNP VBG Base Excess 1.2 mmol/L Sodium (135-145) mmol/L Potassium (3.3-5.1) mmol/L Chloride (96-108) mmol/L Carbon Dioxide (22-29) mmol/L Anion Gap (12-20) BUN (9-16) mg/dL Creatinine (0.5-1.4) mg/dL Estim Creat Clear Calc Estimated GFR Random Glucose (60-115) mg/dL Lactic Acid F/U @ 2Hr (0.5-2.0) mmol/L Calcium (8.4-10.2) mg/dL Total Bilirubin (0.0-1.0) mg/dL AST (5-31) U/L ALT (0-31) U/L Alkaline Phosphatase (39-117) U/L Total Protein (6.5-8.0) g/dL Albumin (3.5-5.0) g/dL Acetone, Qual (Negative) Independent Interpretation I performed an independent interpretation of an: EKG Interpretation: Normal sinus rhythm heart rate 91 beats per minute right axis no acute ST T wave changes no acute ischemia Discharge Plan Discharge Clinical Impression: Osteomyelitis, Hyperglycemia due to diabetes mellitus Patient Disposition: Admitted As Inpatient
[2022-09-15 01:08] LABS: ~Lactic Acid-LAB USE ONLY 3.4 mmol/L (0.5-2.0)
[2022-09-15 01:14] LABS: Alanine Aminotransferase 15 U/L (0-31); Albumin Level 2.9 g/dL (3.5-5.0); Alkaline Phosphatase 85 U/L (39-117); Anion Gap 17 (12-20); Aspartate Amino Transferase 26 U/L (5-31); Blood Urea Nitrogen 27 mg/dL (9-16); Calcium 8.4 mg/dL (8.4-10.2); Carbon Dioxide 26 mmol/L (22-29); Chloride 96 mmol/L (96-108); Estimated Glomerular Filt Rate 41; Glucose Random 710 mg/dL (60-115); Potassium 5.7 mmol/L (3.3-5.1); Sodium 133 mmol/L (135-145); Total Protein 6.3 g/dL (6.5-8.0)
[2022-09-15 01:35] LABS: Acetone, serum QL Negative (Negative)
[2022-09-15 01:37] LABS: VBG Base Excess 1.2 mmol/L; VBG HCO3 25 mmol/L (22-26); VBG pCO2 40 mmHg; VBG pH 7.41 (7.32-7.43); VBG pO2 43 mmHg
[2022-09-15 01:39] LABS: Venous Blood Gas Refer to POC result
[2022-09-15] MEDS: 0.9 % Sodium Chloride 1,000 ML 999 ML IV ×2 (01:40→03:28)
[2022-09-15] MEDS: Piperacillin Sodium/Tazobactam 3.375 GM in 0.9 % Sodium Chloride 50 ML IV (01:41)
[2022-09-15] MEDS: Insulin Lispro 100 UNIT/ML 3 ML VIAL 14 UNIT SUBCUT ×2 (01:42→02:43)
[2022-09-15] MEDS: Insulin Glargine,Hum.rec.anlog 100 UNIT/ML 10 ML VIAL 20 UNIT SUBCUT (01:42)
[2022-09-15] MEDS: HYDROmorphone HCl 1 MG/ML SYRINGE IVPUSH (01:59)
[2022-09-15 02:26] LABS: Glucose, Whole Blood 544 mg/dL (60-115)
[2022-09-15] MEDS: vancomycin HCL 1,000 MG, vancomycin HCL 750 MG in 0.9 % Sodium Chloride 500 ML 267.5 MG IV (02:26)
[2022-09-15] MEDS: Morphine Sulfate 4 MG/ML CARTRIDGE IVPUSH ×3 (02:47→10:19)
[2022-09-15 02:50] LABS: Reflex Lactate? 2 Y
[2022-09-15 03:19] LABS: COVID-19 Test Negative (Negative); IDNOW Serial# 08D9AD1C
[2022-09-15 03:31] LABS: ~Lactic Acid-LAB USE ONLY 2.5 mmol/L (0.5-2.0)
[2022-09-15 04:03] LABS: Glucose, Whole Blood 418 mg/dL (60-115)
--- NOTE | 2022-09-15 04:04 | MHC.EDTECH ---
Patient asked for ice water, patient reminded that she is NPO. Patient expressed understanding and was agreeable to this.
--- NOTE | 2022-09-15 04:39 | PC.NURSE ---
pt c/o mid-sternal chest tightness, ekg obtained. Dr. zamudio
[2022-09-15] MEDS: cefEPime HCl 2 GM in 0.9 % Sodium Chloride 50 ML IV ×3 (05:17→21:22)
[2022-09-15] MEDS: Enoxaparin Sodium 40 MG/0.4 ML SYRINGE SUBCUT (05:17)
[2022-09-15 05:41] LABS: Glucose, Whole Blood 353 mg/dL (60-115)
[2022-09-15 06:17] LABS: Basophils Percent Auto 0.1 % (0-2); Eosinophils Percent Auto 0.3 % (0-4); Hematocrit 31.1 % (37.0-47.0); Hemoglobin 8.8 g/dl (12.0-16.0); Imm Gran Pct Auto 0.8 % (0.0-0.4); Lymphocytes Absolute Auto 1.5 X10*3/uL (1.2-4.9); Lymphocytes Percent Auto 12.5 % (20-40); MANUAL DIFF FLAG SCAN; Mean Corpuscular HGB Conc 28.3 g/dl (31.0-35.0); Mean Corpuscular Hemoglobin 19.4 pg (27.0-33.0); Mean Corpuscular Volume 68.5 fL (80.0-98.0); Monocytes Absolute Auto 0.7 X10*3/uL (0.1-1.2); Monocytes Percent Auto 5.7 % (2-11); Neutrophils Absolute Auto 9.6 x10*3/uL (2.0-8.3); Neutrophils Percent Auto 80.6 % (45-73); PLT CLUMP 1; Red Blood Count 4.54 X10*6/uL (4.20-5.50); Red Cell Distribution Width 21.3 % (11.0-16.0); SCAN SMEAR FLAG 1
--- NOTE | 2022-09-15 06:34 | P.HPHOSP_ITS ---
History of Present Illness Date of Service: 09/15/22 Chief Complaint: worsening wounds 52-year-old female with past medical history of asthma/COPD, heart failure with reduced ejection fraction, diabetes, and multiple diabetic foot wound including chronic osteomyelitis, as well as a large heel wound who was admitted on 09/12 and was planned for I and D by General surgery, but unfortunately left against medical advice on for for returns today with complaints of worsening pain and drainage from her heel wound crying and stating that she is willing to stay this time. Patient stated that she left AMA due to a family emergency but is now willing to stay and received the care that she needs. She reports chronic shortness of breath with cough and sputum production that has not worsened On arrival to the ED hemodynamically stable with no significant abnormal vitals Labs are significant for WBC count of 16 which is worsened than 4 4, sodium 133, potassium 5.7, creatinine of 1.37, glucose of 500s, lactic acid of 3.4, Patient started on IV antibiotics OB admitted for further management Review of Systems Review of Systems: Yes all other systems are reviewed and are negative [facility] Medical History Asthma Atherosclerotic cardiovascular disease Atrial tachycardia COPD (chronic obstructive pulmonary disease) COVID-19 vaccine series completed Diabetes Diabetic toe ulcer Essential hypertension GERD (gastroesophageal reflux disease) Hypertension Left against medical advice Left against medical advice Osteomyelitis PAD (peripheral artery disease) Family History Mother Hx of CABG Sister CAD (coronary artery disease) Surgical History History of esophagogastroduodenoscopy (EGD) History of toe surgery (09/22/21) Social History Household Members: Family Housing: Apartment Do you presently have visiting nurse or other home services: No Unable to assess alcohol history related to: Refusing to respond Alcohol intake: never Patient Tobacco Use Status: Current everyday Tobacco user Tobacco use type: Cigarette Cigarette Packs Per Day: 0.5 Cigarettes Per Day: 3 Years Smoked: 43 e-Cigarette/Vaping Use: Currently Using Second Hand Smoke Exposure: Yes Advance Directives: No Advance Directives Information Provided: No Advance Directives Date on File: 12/28/20 service: No Current occupational status: unemployed and disabled Meds Allergies Allergy/AdvReac Type Severity Reaction Status Date / Time Penicillins [PENICILLINS] Allergy Severe RASH Verified 08/27/22 17:42 amoxicillin [AMOXICILLIN] Allergy Intermediate HIVES Verified 08/27/22 17:42 codeine Allergy Itching Verified 08/27/22 17:42 Active Medications: Current Medications Acetaminophen (Acetaminophen 325 Mg Tablet) 650 mg PO Q6H PRN PRN Reason: Pain, Mild (Pain Scale 1-3) Docusate Sodium (Docusate Sodium 100 Mg Capsule) 100 mg PO DAILY PRN PRN Reason: Constipation Enoxaparin Sodium (Enoxaparin Sodium 40 Mg/0.4 Ml Syringe) 40 mg SUBCUT Q24H [facility] Last Admin: 09/15/22 05:17 Dose: 40 mg Glucose (Glucose Gel 15 Gm Gel..Gram.) 15 gm PO Q15M PRN; Protocol PRN Reason: per Hypoglycemia Standing Ord. Dextrose (D10) 250 mls @ 750 mls/hr IV Q15M PRN; Protocol PRN Reason: per Hypoglycemia Standing Ord. Cefepime HCl 2 gm/ Sodium (Chloride) 50 mls @ 100 mls/hr IV Q8H [facility] Last Infusion: 09/15/22 05:57 Dose: Infused Insulin Human Lispro (Insulin Lispro 100 Unit/Ml 3 Ml Vial) 0 unit SUBCUT QIDACHS [facility]; Protocol Morphine Sulfate (Morphine Sulfate 4 Mg/Ml Cartridge) 4 mg IVPUSH Q4H PRN; Protocol PRN Reason: Pain, Severe (Pain Scale 7-10) Last Admin: 09/15/22 02:47 Dose: 4 mg Ondansetron HCl (Ondansetron Hcl 4 Mg/2 Ml Vial) 4 mg IVPUSH Q8H PRN PRN Reason: Nausea and Vomiting Pharmacy Consult (Consult Rx Vancomycin Dosing) 1 each MISCELLANE DAILY PRN PRN Reason: Consult order Sodium Chloride (0.9 % Sodium Chloride Flush 3 Ml Syringe) [facility] Home Medications Medication Instructions Recorded Confirmed Last Taken Type aspirin 81 mg tablet,delayed 1 tab PO DAILY 12/24/20 09/12/22 09/07/22 History release umeclidinium 62.5 mcg/actuation 1 puff PO DAILY 10/31/21 09/12/22 09/07/22 History blister powder for inhalation (Incruse Ellipta) montelukast 10 mg tablet 1 tab PO BEDTIME 02/13/22 09/12/22 09/07/22 History insulin glargine 100 unit/mL (3 20 unit subcut BID 03/23/22 09/12/22 09/07/22 History mL) subcutaneous pen (Lantus Solostar U-100 Insulin) gabapentin 300 mg capsule 2 cap PO BID 05/01/22 09/12/22 09/07/22 History albuterol sulfate 2.5 mg/3 mL 1 vial inhalation Q6H PRN Wheezing 06/19/22 09/12/22 09/07/22 History (0.083 %) solution for nebulization albuterol sulfate 90 mcg/actuation 1 - 2 puff inhalation Q4-6H PRN 06/19/22 09/12/22 09/07/22 History aerosol inhaler (Ventolin HFA) Wheezing lisinopril 20 mg tablet 20 mg PO DAILY 09/08/22 09/12/22 09/07/22 History furosemide 40 mg tablet 40 mg PO BID 09/12/22 09/12/22 Unknown History Physical Exam Vital Signs and Narrative: Vital Signs: Last Vital Signs Temp 97.9 F 09/15/22 02:12 Pulse 107 H 09/15/22 02:12 Resp 18 09/15/22 02:12 BP 120/77 09/15/22 02:12 Pulse Ox 100 09/15/22 00:19 O2 Del Method Room Air 09/15/22 02:12 BMI result Body Mass Index 26.5 Const: General: cooperative and no acute distress Orientation/consciousness: patient oriented x3 Eyes: Pupils: Equal, round and reactive pupils present Resp: Effort & Inspection: normal respiratory effort Auscultation: clear to auscultation bilaterally Cardio: Rate: regular rate Rhythm: regular rhythm GI: Palpation (GI): Soft to palpation Auscultation: normal bowel sounds Skin: General skin exam: no rashes or lesions noted Neuro: General: patient oriented x3 Cranial nerves: Yes Equal, round and reactive pupils present Cognition (Neuro): normal cognition Extrem: Other: Has several ulcers and wounds in the left lower extremity including a large laceration on the heel left great toe Results Labs 09/15/22 00:44 09/15/22 00:44 Labs: Laboratory Results - last 24 hr 09/15/22 09/15/22 09/15/22 00:44 00:44 00:44 MCV 68.5 L MCH 19.7 L MCHC 28.8 L RDW 22.0 H Plt Count 236 MPV 11.4 Immature Gran % (Auto) 0.8 H Neut % (Auto) 84.5 H Lymph % (Auto) 9.8 L [place] % (Auto) 4.5 Eos % (Auto) 0.3 Baso % (Auto) 0.1 Lymph # (Auto) 1.6 [place] # (Auto) 0.7 Eos # (Auto) 0.0 Baso # (Auto) 0.0 Abs Immat Gran (auto) 0.12 H Absolute Neuts (auto) 13.5 H Absolute Nucleated RBC 0.000 Nucleated RBC % (auto) 0.0 VBG pH VBG pCO2 VBG pO2 VBG HCO3 VBG O2 Saturation VBG Base Excess Anion Gap 17 Estim Creat Clear Calc 45.0 Estimated GFR 41 POC Glucose Random Glucose 710 H* Lactic Acid F/U @ 2Hr 3.4 H* Lactic Acid F/U @ 4Hr Calcium 8.4 Total Bilirubin 1.0 AST 26 ALT 15 Alkaline Phosphatase 85 Total Protein 6.3 L Albumin 2.9 L Acetone, Qual Negative COVID-19 (KATHLEEN) COVID-19 Clin Com 09/15/22 09/15/22 09/15/22 01:32 02:22 02:59 MCV MCH MCHC RDW Plt Count MPV Immature Gran % (Auto) Neut % (Auto) Lymph % (Auto) [place] % (Auto) Eos % (Auto) Baso % (Auto) Lymph # (Auto) [place] # (Auto) Eos # (Auto) Baso # (Auto) Abs Immat Gran (auto) Absolute Neuts (auto) Absolute Nucleated RBC Nucleated RBC % (auto) VBG pH 7.41 VBG pCO2 40 VBG pO2 43 VBG HCO3 25 VBG O2 Saturation TNP VBG Base Excess 1.2 Anion Gap Estim Creat Clear Calc Estimated GFR POC Glucose 544 H* Random Glucose Lactic Acid F/U @ 2Hr Lactic Acid F/U @ 4Hr Calcium Total Bilirubin AST ALT Alkaline Phosphatase Total Protein Albumin Acetone, Qual COVID-19 (KATHLEEN) Negative NiniteIDEyeona See Note 09/15/22 09/15/22 09/15/22 03:15 03:57 05:37 MCV MCH MCHC RDW Plt Count MPV Immature Gran % (Auto) Neut % (Auto) Lymph % (Auto) [place] % (Auto) Eos % (Auto) Baso % (Auto) Lymph # (Auto) [place] # (Auto) Eos # (Auto) Baso # (Auto) Abs Immat Gran (auto) Absolute Neuts (auto) Absolute Nucleated RBC Nucleated RBC % (auto) VBG pH VBG pCO2 VBG pO2 VBG HCO3 VBG O2 Saturation VBG Base Excess Anion Gap Estim Creat Clear Calc Estimated GFR POC Glucose 418 H* 353 H* Random Glucose Lactic Acid F/U @ 2Hr Lactic Acid F/U @ 4Hr 2.5 H* Calcium Total Bilirubin AST ALT Alkaline Phosphatase Total Protein Albumin Acetone, Qual COVID-19 (KATHLEEN) Desti 09/15/22 05:48 MCV MCH MCHC RDW Plt Count MPV Not Reportable Immature Gran % (Auto) Neut % (Auto) Lymph % (Auto) [place] % (Auto) Eos % (Auto) Baso % (Auto) Lymph # (Auto) [place] # (Auto) Eos # (Auto) Baso # (Auto) Abs Immat Gran (auto) Absolute Neuts (auto) Absolute Nucleated RBC Nucleated RBC % (auto) VBG pH VBG pCO2 VBG pO2 VBG HCO3 VBG O2 Saturation VBG Base Excess Anion Gap Estim Creat Clear Calc Estimated GFR POC Glucose Random Glucose Lactic Acid F/U @ 2Hr Lactic Acid F/U @ 4Hr Calcium Total Bilirubin AST ALT Alkaline Phosphatase Total Protein Albumin Acetone, Qual COVID-19 (KATHLEEN) Desti Assessment and Plan (1) Cellulitis in diabetic foot: Status: Acute (2) 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: Status: Acute (3) Diabetic foot ulcer: Status: Acute (4) Diabetic foot infection: Status: Acute (5) Hyperglycemia due to diabetes mellitus: Status: Acute (6) Left against medical advice: Status: Acute Plan 52-year-old female with past medical history of chronic osteomyelitis of great toe of the left foot, cellulitis as of left lower extremity, diabetic foot ulcer presents to the hospital with complaints of worsening pain and drainage.? Patient was seen in the hospital and was admitted from September 09 and left against medical advice on September 10.? Noted again on 09/12 and left against medical advice on 09/13 after surgery had planned for an I&D the next day. Nir doran returns today stating that her pain is not controlled, as well as worsening symptoms in her foot and agreeable to to stay #? chronic osteomyelitis of left great toe -? consult general surgery and Infectious Disease -? will continue IV antibiotics -? follow cultures #? cellulitis of left lower extremity/diabetic for wound #? diabetic foot wounds/ulcers -? management as above with IV antibiotics,? - general surgery was consulted on previous admission with plan for I&D - will re-consult General surgery #? asthma -? states chronic shortness of breath and cough with no worsening symptoms -? DuoNeb p.r.n. #? history of CHF -?not in exacerbation -? monitor volume status -? continue Lasix #? history of? recent STEMI status post stent? in August 2022 -? no chest pain, continue ASA, #? diabetes -? continue home insulin -? will add low-dose sliding scale insulin -? diabetic diet ?DVT prophylaxis:? Lovenox ? ?given patient's need for IV antibiotics and as well as evaluation for ampu tation of left lower great toe patient will require minimum 2 nights inpatient hospital stay for further management and monitoring Time Spent With Patient Time: Total time managing care of this patient today ____ minutes. Quality Stroke Does the patient have a stroke diagnosis?: No VTE Prior VTE?: No VTE Risk Level:: Medical - moderate - high VTE Device Contraindication: Treatment Not Indicated VTE Drug Contraindication: N/A - Med Ordered
--- NOTE | 2022-09-15 06:59 | PHA.MEDREC ---
Pharmacy Consult ? Medication Reconciliation Pharmacy has completed the medication reconciliation. Patient left AMA on 09/13/2022. Used discharges summary to complete med rec. Shantanu HutchinsD
--- NOTE | 2022-09-15 07:07 | PHA.PROG ---
Admission Date/Time: September 15, 2022 01:50 Indication: BONE AND JOIN Weight in k.039 kg Serum Creatinine - Last 168 Hours 09/15/22 00:44 Creatinine 1.37 Estimated CrCl and GFR - Last 168 Hours 09/15/22 00:44 Estim Creat Clear Calc 45.0 Estimated GFR 41 Vancomycin Loading Dose: 1750 Current Vancomycin Dosing Regimen: 1250 Q 24 Vancomycin Monitoring using AUC goal of 400 - 600 range with trough as surrogate marker: 520 Date and Time for next Vancomycin Level to be drawn: 09/17 @ 2200 Pharmacist Comments on Vancomycin Plan: PATIENT GOT PROPER LOAD AND BASED ON INCREASE RENAL FUNCTION SINCE LAST VISIT ONLY WENT WITH Q24H DOSING Vancomycin dosing will take advantage of [employer] as a clinical decision support tool that uses Bayesian modeling to calculate individual patient's pharmacokinetic parameters and forecast the patient's drug concentration time course with the target goal AUC 24 range of 400 - 600 mg/L/hr.
[2022-09-15 07:08] LABS: Sodium 137 mmol/L (135-145)
[2022-09-15 07:09] LABS: Anion Gap 13 (12-20); Blood Urea Nitrogen 22 mg/dL (9-16); Carbon Dioxide 25 mmol/L (22-29); Chloride 103 mmol/L (96-108); Creatinine Clr Calc Pharmacy 71.7; Estimated Glomerular Filt Rate > 60; White Blood Count 11.9 X10*3/uL (4.8-10.8)
[2022-09-15 07:10] LABS: Calcium 7.7 mg/dL (8.4-10.2); Platelet Count 196 X10*3/uL (160-400)
[2022-09-15 07:16] LABS: SLIDE REVIEW VERIFIED
[2022-09-15 07:37] LABS: Glucose, Whole Blood 312 mg/dL (60-115)
[2022-09-15 07:51] LABS: Lactic Acid 1.8 mmol/L (0.5-2.0)
--- NOTE | 2022-09-15 08:03 | PC.NURSE ---
Pt found lying in bed semi-fowlers, airway open and patent, no obvious signs of distress, no dif/labored breathing. pt a&ox4. Lung sounds clr and equal bilat. Heart sounds normal. Abdomen soft, non-tender, bruise size of dime on right mid, bowel sounds present all wood. Skin pink, warm, and dry. Pt has dressing on left foot (done by night time nanny RN), reddened area/wound on left great toe. Pt reporting 10/10 pain, and requesting more pain meds. Pt received last dose of morphine at 6:50, next dose not due till 10:50. Will continue to monitor. Patient aware of plan of care.
--- NOTE | 2022-09-15 08:16 | PC.NURSE ---
Addendum entered by Janiya Dalal RN 09/15/22 08:18: Pt not given insulin coverage due to NPO status. Original Note: RN to RN report given to Brian. Critical glucose value of 384 reported to SUSANA Torres.
[2022-09-15 08:23] LABS: Glucose Random 384 mg/dL (60-115)
--- NOTE | 2022-09-15 08:32 | MHC.CM.PN ---
Addendum entered by Maria Luisa Casiano 09/15/22 08:44: REFERRALS MADE TO LOCAL SNFS Addendum entered by Maria Luisa Casiano 09/15/22 08:35: PT WILL NEED SNF PLACEMENT IF IV ABX ARE REQUIRED Original Note: PT REPORTS SHE LIVES WITH HER S/O AND ADULT CHILDREN SHE HAS NO SERVICES AND NO DME SHE HAS NO PCP HCP ON FILE SHE IS COVID VAX PT EDUCATED ON THE PROCESS/IMPORTANCE OF OBTAINING A PCP DCP: HOME NO SERVICES FAMILY TO TRANSPORT
[2022-09-15 08:57] LABS: Glucose, Whole Blood 251 mg/dL (60-115)
[2022-09-15] MEDS: 0.9 % Sodium Chloride Flush 3 ML SYRINGE IVFLUSH ×2 (10:20→21:27)
[2022-09-15 11:25] LABS: Glucose, Whole Blood 219 mg/dL (60-115)
--- NOTE | 2022-09-15 11:53 | PM.CNGS ---
History of Present Illness Consult details Consult date: 09/15/22 <Hadley Crawford MD - Last Filed: 09/15/22 12:12> Narrative: 52F admitted last night for left foot pain. She has longstanding diabetes, and has had multiple admissions in the past for diabetic ulcers and foot infections. SHe has ahd a 2nd toe amputation on the left last year with Dr. Cantu for osteomyelitis. She was actually admitted 2 days ago for a foot infection on the left heel area. She was seen by Dr. Cantu and debridement in the OR had been planned but the patient left AMA. She came back this morning for persistent pain and was admitted today by the hospitalist service. She says that the pain is severe on the left heel area. She denies any fever. <Hadley Crawford MD - Last Filed: 09/15/22 12:12> Review of Systems Constitutional: Constitutional: Denies chills, Reports difficulty sleeping and Denies fever(s) <Hadley Crawford MD - Last Filed: 09/15/22 12:12> Cardiovascular: Cardiovascular: Denies chest pain and Denies chest pain with activity <Hadley Crawford MD - Last Filed: 09/15/22 12:12> Respiratory: Respiratory: Denies cough <Hadley Crawford MD - Last Filed: 09/15/22 12:12> Gastrointestinal: Gastrointestinal: Denies abdominal pain <Hadley Crawford MD - Last Filed: 09/15/22 12:12> Genitourinary: Genitourinary: Denies difficulty voiding <Hadley Crawford MD - Last Filed: 09/15/22 12:12> Integumentary/Breasts: Skin/Breast: Reports wounds <Hadley Crawford MD - Last Filed: 09/15/22 12:12> [facility] Past Medical History Medical History: Medical History Asthma Atherosclerotic cardiovascular disease Atrial tachycardia COPD (chronic obstructive pulmonary disease) COVID-19 vaccine series completed Diabetes Diabetic foot infection Diabetic toe ulcer Essential hypertension GERD (gastroesophageal reflux disease) Hypertension Left against medical advice Left against medical advice Osteomyelitis PAD (peripheral artery disease) <Hadley Crawford MD - Last Filed: 09/15/22 12:12> Family History Family History: Family History Mother Hx of CABG Sister CAD (coronary artery disease) <Hadley Crawford MD - Last Filed: 09/15/22 12:12> Surgical History Surgical History: Surgical History History of esophagogastroduodenoscopy (EGD) History of toe surgery (09/22/21) <Hadley Crawford MD - Last Filed: 09/15/22 12:12> Social History Social History: Social History Household Members: Family and Children Housing: Apartment Do you presently have visiting nurse or other home services: No Unable to assess alcohol history related to: Refusing to respond Alcohol intake: never Patient Tobacco Use Status: Current everyday Tobacco user Tobacco use type: Cigarette Cigarette Packs Per Day: 0.5 Cigarettes Per Day: 3 Years Smoked: 43 e-Cigarette/Vaping Use: Currently Using Second Hand Smoke Exposure: Yes Advance Directives Date on File: 12/28/20 service: No Current occupational status: unemployed and disabled <Hadley Crawford MD - Last Filed: 09/15/22 12:12> Meds Allergies/Adverse reactions: Allergies Allergy/AdvReac Type Severity Reaction Status Date / Time Penicillins [PENICILLINS] Allergy Severe RASH Verified 08/27/22 17:42 amoxicillin [AMOXICILLIN] Allergy Intermediate HIVES Verified 08/27/22 17:42 codeine Allergy Itching Verified 08/27/22 17:42 <Hadley Crawford MD - Last Filed: 09/15/22 12:12> Active Medications: Current Medications Acetaminophen (Acetaminophen 325 Mg Tablet) 650 mg PO Q6H PRN PRN Reason: Pain, Mild (Pain Scale 1-3) Albuterol Sulfate (Albuterol Sulfate (0.083%) 2.5 Mg/3 Ml Vial.Neb) 2.5 mg INHALE Q6H PRN PRN Reason: Wheezing Docusate Sodium (Docusate Sodium 100 Mg Capsule) 100 mg PO DAILY PRN PRN Reason: Constipation Enoxaparin Sodium (Enoxaparin Sodium 40 Mg/0.4 Ml Syringe) 40 mg SUBCUT Q24H REPLACED BY [facility] Last Admin: 09/15/22 05:17 Dose: 40 mg Furosemide (Furosemide 40 Mg Tablet) 40 mg PO BID REPLACED BY [facility]; Protocol Gabapentin (Gabapentin 300 Mg Capsule) 600 mg PO BID REPLACED BY [facility] Glucose (Glucose Gel 15 Gm Gel..Gram.) 15 gm PO Q15M PRN; Protocol PRN Reason: per Hypoglycemia Standing Ord. Dextrose (D10) 250 mls @ 750 mls/hr IV Q15M PRN; Protocol PRN Reason: per Hypoglycemia Standing Ord. Cefepime HCl 2 gm/ Sodium (Chloride) 50 mls @ 100 mls/hr IV Q8H REPLACED BY [facility] Last Infusion: 09/15/22 05:57 Dose: Infused Vancomycin HCl 1,250 mg/ (Sodium Chloride) 250 mls @ 166.667 mls/hr IV Q24H REPLACED BY [facility] Insulin Glargine (Insulin Glargine,Hum.Rec.Anlog 100 Unit/Ml 10 Ml Vial) 20 unit SUBCUT BID REPLACED BY [facility] Insulin Human Lispro (Insulin Lispro 100 Unit/Ml 3 Ml Vial) 0 unit SUBCUT QIDACHS REPLACED BY [facility]; Protocol Last Admin: 09/15/22 08:53 Dose: Not Given Montelukast Sodium (Montelukast Sodium 10 Mg Tablet) 10 mg PO BEDTIME REPLACED BY [facility] Morphine Sulfate (Morphine Sulfate 4 Mg/Ml Cartridge) 4 mg IVPUSH Q3H PRN; Protocol PRN Reason: Pain, Severe (Pain Scale 7-10) Last Admin: 09/15/22 10:19 Dose: 4 mg Non-Formulary Medication (Umeclidinium [Incruse Ellipta]) 1 puff PO DAILY REPLACED BY [facility] Ondansetron HCl (Ondansetron Hcl 4 Mg/2 Ml Vial) 4 mg IVPUSH Q8H PRN PRN Reason: Nausea and Vomiting Pharmacy Consult (Consult Rx Vancomycin Dosing) 1 each MISCELLANE DAILY PRN PRN Reason: Consult order Pharmacy Consult (Consult Rx Perform Med Rec) 1 each MISCELLANE ONCE PRN PRN Reason: Consult order Sodium Chloride (0.9 % Sodium Chloride Flush 3 Ml Syringe) 3 ml IVFLUSH QSHIFT REPLACED BY [facility] Last Admin: 09/15/22 10:20 Dose: 3 ml <Hadley Crawford MD - Last Filed: 09/15/22 12:12> Home medications: Home Medications Medication Instructions Recorded Confirmed Last Taken Type aspirin 81 mg tablet,delayed 1 tab PO DAILY 12/24/20 09/15/22 09/07/22 History release umeclidinium 62.5 mcg/actuation 1 puff PO DAILY 10/31/21 09/15/22 09/07/22 History blister powder for inhalation (Incruse Ellipta) montelukast 10 mg tablet 1 tab PO BEDTIME 02/13/22 09/15/22 09/07/22 History insulin glargine 100 unit/mL (3 20 unit subcut BID 03/23/22 09/15/22 09/07/22 History mL) subcutaneous pen (Lantus Solostar U-100 Insulin) gabapentin 300 mg capsule 2 cap PO BID 05/01/22 09/15/22 09/07/22 History albuterol sulfate 2.5 mg/3 mL 1 vial inhalation Q6H PRN Wheezing 06/19/22 09/15/22 09/07/22 History (0.083 %) solution for nebulization albuterol sulfate 90 mcg/actuation 1 - 2 puff inhalation Q4-6H PRN 06/19/22 09/15/22 09/07/22 History aerosol inhaler (Ventolin HFA) Wheezing lisinopril 20 mg tablet 20 mg PO DAILY 09/08/22 09/15/22 09/07/22 History furosemide 40 mg tablet 40 mg PO BID 09/12/22 09/15/22 Unknown History <Hadley Crawford MD - Last Filed: 09/15/22 12:12> Physical Exam Vital Signs: Vital Signs: Last Vital Signs Temp 97.2 F 09/15/22 08:50 Pulse 90 09/15/22 08:50 Resp 16 09/15/22 08:50 BP 139/77 09/15/22 08:50 Pulse Ox 97 09/15/22 08:50 O2 Del Method Room Air 09/15/22 08:50 BMI result Body Mass Index 31.5 <Hadley Crawford MD - Last Filed: 09/15/22 12:12> Const: Other: sleepy - says she has not slept well in 3 days <Hadley Crawford MD - Last Filed: 09/15/22 12:12> General: comfortable and no acute distress <Hadley Crawford MD - Last Filed: 09/15/22 12:12> Resp: Effort & Inspection: normal respiratory effort <Hadley Crawford MD - Last Filed: 09/15/22 12:12> Cardio: Rate: regular rate <Hadley Crawford MD - Last Filed: 09/15/22 12:12> GI: Palpation (GI): Soft to palpation, not firm and nontender <Hadley Crawford MD - Last Filed: 09/15/22 12:12> Extrem: Other: dry ulcer on left big toe, no signficant discharge; left posterior foot laterally next to heel - induration about 5 cm with open fissuring wound, foul-odor, signs of infections with discolored soft tissue through the woundf, no spreading cellulitis; pulses seem palpable, no cyanotic areas <Hadley Crawford MD - Last Filed: 09/15/22 12:12> Results Labs Result diagrams: 09/15/22 05:48 09/15/22 05:48 <Hadley Crawford MD - Last Filed: 09/15/22 12:12> Labs: Abnormal lab results 09/15/22 09/15/22 09/15/22 Range/Units 00:44 00:44 00:44 WBC 16.0 H (4.8-10.8) X10*3/uL Hgb 9.2 L (12.0-16.0) g/dl Hct 32.0 L (37.0-47.0) % MCV 68.5 L (80.0-98.0) fL MCH 19.7 L (27.0-33.0) pg MCHC 28.8 L (31.0-35.0) g/dl RDW 22.0 H (11.0-16.0) % Immature Gran % (Auto) 0.8 H (0.0-0.4) % Neut % (Auto) 84.5 H (45-73) % Lymph % (Auto) 9.8 L (20-40) % Abs Immat Gran (auto) 0.12 H (0.00-0.03) X10*3/uL Absolute Neuts (auto) 13.5 H (2.0-8.3) x10*3/uL Sodium 133 L (135-145) mmol/L Potassium 5.7 H D (3.3-5.1) mmol/L BUN 27 H (9-16) mg/dL POC Glucose (60-115) mg/dL Random Glucose 710 H* (60-115) mg/dL Lactic Acid F/U @ 2Hr 3.4 H* (0.5-2.0) mmol/L Lactic Acid F/U @ 4Hr (0.5-2.0) mmol/L Calcium (8.4-10.2) mg/dL Total Protein 6.3 L (6.5-8.0) g/dL Albumin 2.9 L (3.5-5.0) g/dL 09/15/22 09/15/22 09/15/22 Range/Units 02:22 03:15 03:57 WBC (4.8-10.8) X10*3/uL Hgb (12.0-16.0) g/dl Hct (37.0-47.0) % MCV (80.0-98.0) fL MCH (27.0-33.0) pg MCHC (31.0-35.0) g/dl RDW (11.0-16.0) % Immature Gran % (Auto) (0.0-0.4) % Neut % (Auto) (45-73) % Lymph % (Auto) (20-40) % Abs Immat Gran (auto) (0.00-0.03) X10*3/uL Absolute Neuts (auto) (2.0-8.3) x10*3/uL Sodium (135-145) mmol/L Potassium (3.3-5.1) mmol/L BUN (9-16) mg/dL POC Glucose 544 H* 418 H* (60-115) mg/dL Random Glucose (60-115) mg/dL Lactic Acid F/U @ 2Hr (0.5-2.0) mmol/L Lactic Acid F/U @ 4Hr 2.5 H* (0.5-2.0) mmol/L Calcium (8.4-10.2) mg/dL Total Protein (6.5-8.0) g/dL Albumin (3.5-5.0) g/dL 09/15/22 09/15/22 09/15/22 Range/Units 05:37 05:48 05:48 WBC 11.9 H (4.8-10.8) X10*3/uL Hgb 8.8 L (12.0-16.0) g/dl Hct 31.1 L (37.0-47.0) % MCV 68.5 L (80.0-98.0) fL MCH 19.4 L (27.0-33.0) pg MCHC 28.3 L (31.0-35.0) g/dl RDW 21.3 H (11.0-16.0) % Immature Gran % (Auto) 0.8 H (0.0-0.4) % Neut % (Auto) 80.6 H (45-73) % Lymph % (Auto) 12.5 L (20-40) % Abs Immat Gran (auto) 0.10 H (0.00-0.03) X10*3/uL Absolute Neuts (auto) 9.6 H (2.0-8.3) x10*3/uL Sodium (135-145) mmol/L Potassium (3.3-5.1) mmol/L BUN 22 H (9-16) mg/dL POC Glucose 353 H* (60-115) mg/dL Random Glucose 384 H* (60-115) mg/dL Lactic Acid F/U @ 2Hr (0.5-2.0) mmol/L Lactic Acid F/U @ 4Hr (0.5-2.0) mmol/L Calcium 7.7 L D (8.4-10.2) mg/dL Total Protein (6.5-8.0) g/dL Albumin (3.5-5.0) g/dL 09/15/22 09/15/22 09/15/22 Range/Units 07:32 08:47 11:20 WBC (4.8-10.8) X10*3/uL Hgb (12.0-16.0) g/dl Hct (37.0-47.0) % MCV (80.0-98.0) fL MCH (27.0-33.0) pg MCHC (31.0-35.0) g/dl RDW (11.0-16.0) % Immature Gran % (Auto) (0.0-0.4) % Neut % (Auto) (45-73) % Lymph % (Auto) (20-40) % Abs Immat Gran (auto) (0.00-0.03) X10*3/uL Absolute Neuts (auto) (2.0-8.3) x10*3/uL Sodium (135-145) mmol/L Potassium (3.3-5.1) mmol/L BUN (9-16) mg/dL POC Glucose 312 H 251 H 219 H (60-115) mg/dL Random Glucose (60-115) mg/dL Lactic Acid F/U @ 2Hr (0.5-2.0) mmol/L Lactic Acid F/U @ 4Hr (0.5-2.0) mmol/L Calcium (8.4-10.2) mg/dL Total Protein (6.5-8.0) g/dL Albumin (3.5-5.0) g/dL Short CBC 09/15/22 09/15/22 Range/Units 00:44 05:48 WBC 16.0 H 11.9 H (4.8-10.8) X10*3/uL Hgb 9.2 L 8.8 L (12.0-16.0) g/dl Hct 32.0 L 31.1 L (37.0-47.0) % Plt Count 236 196 (160-400) X10*3/uL BMP 09/15/22 09/15/22 00:44 05:48 Sodium 133 L 137 Potassium 5.7 H D 4.0 D Chloride 96 103 Carbon Dioxide 26 25 BUN 27 H 22 H Creatinine 1.37 0.86 Calcium 8.4 7.7 L D Liver Function 09/15/22 Range/Units 00:44 Total Bilirubin 1.0 (0.0-1.0) mg/dL AST 26 (5-31) U/L ALT 15 (0-31) U/L Alkaline Phosphatase 85 (39-117) U/L Albumin 2.9 L (3.5-5.0) g/dL All other labs normal. <Hadley Crawford MD - Last Filed: 09/15/22 12:12> Assessment and Plan (1) Diabetic foot infection: Status: Acute <Hadley Crawford MD - Last Filed: 09/15/22 12:12> She has a diabetic foot infection on the left as described above. This appears to require debridement in the OR. She had foot xrays done last week showing question of osteomyelitis on the big toe on the left, but this appears dry without overt signs of active infection. She had been given Zosyn in the ED and is currently on Cefepime as ordered by the medical service. <Hadley Crawford MD - Last Filed: 09/15/22 12:12> Patient seen and examined, left heal abscess drained (see Event Note ) Patient tolerated this well. Will continue to monitor. Recommend repeating CT of foot. <Luis Miguel Cantu MD - Last Filed: 09/16/22 07:49> Time Spent With Patient Time: Total time managing care of this patient today ____ minutes. <Hadley Crawford MD - Last Filed: 09/15/22 12:12> Procedures Date of Service Date of Service: 09/15/22 <Luis Miguel Cantu MD - Last Filed: 09/16/22 07:49>
[2022-09-15] MEDS: Insulin Lispro 100 UNIT/ML 3 ML VIAL SUBCUT (11:55)
--- NOTE | 2022-09-15 12:18 | W.PM.IDCN ---
History of Present Illness Data of Consult Service Date: 09/15/22 Requesting physician: Stephanie Flores Primary Care Provider: Emilie Dangelo MD HPI Reason for consult: chronic leg wounds,cellulitis She was in hospital recently and left AMA. She has ongoing left heel eschar and discomfort and chronic OM,left great toe. She is concerned about scaling and odor from heel and wants to see Surgery. Review of Systems Review of Systems: Yes all other systems are reviewed and are negative PMFSH Past Medical History Medical History Asthma Atherosclerotic cardiovascular disease Atrial tachycardia COPD (chronic obstructive pulmonary disease) COVID-19 vaccine series completed Diabetes Diabetic foot infection Diabetic toe ulcer Essential hypertension GERD (gastroesophageal reflux disease) Hypertension Left against medical advice Left against medical advice Osteomyelitis PAD (peripheral artery disease) Family History Family History Mother Hx of CABG Sister CAD (coronary artery disease) Family history: reviewed and not pertinent Surgical History Surgical History History of esophagogastroduodenoscopy (EGD) History of toe surgery (09/22/21) Social History Social History Household Members: Family and Children Housing: Apartment Do you presently have visiting nurse or other home services: No Unable to assess alcohol history related to: Refusing to respond Alcohol intake: never Patient Tobacco Use Status: Current everyday Tobacco user Tobacco use type: Cigarette Cigarette Packs Per Day: 0.5 Cigarettes Per Day: 3 Years Smoked: 43 e-Cigarette/Vaping Use: Currently Using Second Hand Smoke Exposure: Yes Advance Directives Date on File: 12/28/20 service: No Current occupational status: unemployed and disabled Meds Allergies Allergy/AdvReac Type Severity Reaction Status Date / Time Penicillins [PENICILLINS] Allergy Severe RASH Verified 08/27/22 17:42 amoxicillin [AMOXICILLIN] Allergy Intermediate HIVES Verified 08/27/22 17:42 codeine Allergy Itching Verified 08/27/22 17:42 Active Medications: Current Medications Acetaminophen (Acetaminophen 325 Mg Tablet) 650 mg PO Q6H PRN PRN Reason: Pain, Mild (Pain Scale 1-3) Albuterol Sulfate (Albuterol Sulfate (0.083%) 2.5 Mg/3 Ml Vial.Neb) 2.5 mg INHALE Q6H PRN PRN Reason: Wheezing Docusate Sodium (Docusate Sodium 100 Mg Capsule) 100 mg PO DAILY PRN PRN Reason: Constipation Enoxaparin Sodium (Enoxaparin Sodium 40 Mg/0.4 Ml Syringe) 40 mg SUBCUT Q24H [facility] Last Admin: 09/15/22 05:17 Dose: 40 mg Furosemide (Furosemide 40 Mg Tablet) 40 mg PO BID [facility]; Protocol Gabapentin (Gabapentin 300 Mg Capsule) 600 mg PO BID [facility] Glucose (Glucose Gel 15 Gm Gel..Gram.) 15 gm PO Q15M PRN; Protocol PRN Reason: per Hypoglycemia Standing Ord. Dextrose (D10) 250 mls @ 750 mls/hr IV Q15M PRN; Protocol PRN Reason: per Hypoglycemia Standing Ord. Cefepime HCl 2 gm/ Sodium (Chloride) 50 mls @ 100 mls/hr IV Q8H [facility] Last Infusion: 09/15/22 05:57 Dose: Infused Vancomycin HCl 1,250 mg/ (Sodium Chloride) 250 mls @ 166.667 mls/hr IV Q24H [facility] Insulin Glargine (Insulin Glargine,Hum.Rec.Anlog 100 Unit/Ml 10 Ml Vial) 20 unit SUBCUT BID [facility] Insulin Human Lispro (Insulin Lispro 100 Unit/Ml 3 Ml Vial) 0 unit SUBCUT QIDACHS [facility]; Protocol Last Admin: 09/15/22 11:55 Dose: 4 unit Montelukast Sodium (Montelukast Sodium 10 Mg Tablet) 10 mg PO BEDTIME [facility] Morphine Sulfate (Morphine Sulfate 4 Mg/Ml Cartridge) 4 mg IVPUSH Q3H PRN; Protocol PRN Reason: Pain, Severe (Pain Scale 7-10) Last Admin: 09/15/22 10:19 Dose: 4 mg Non-Formulary Medication (Umeclidinium [Incruse Ellipta]) 1 puff PO DAILY [facility] Ondansetron HCl (Ondansetron Hcl 4 Mg/2 Ml Vial) 4 mg IVPUSH Q8H PRN PRN Reason: Nausea and Vomiting Pharmacy Consult (Consult Rx Vancomycin Dosing) 1 each MISCELLANE DAILY PRN PRN Reason: Consult order Pharmacy Consult (Consult Rx Perform Med Rec) 1 each MISCELLANE ONCE PRN PRN Reason: Consult order Sodium Chloride (0.9 % Sodium Chloride Flush 3 Ml Syringe) 3 ml [facility] Last Admin: 09/15/22 10:20 Dose: 3 ml Home Medications Medication Instructions Recorded Confirmed Last Taken Type aspirin 81 mg tablet,delayed 1 tab PO DAILY 12/24/20 09/15/22 09/07/22 History release umeclidinium 62.5 mcg/actuation 1 puff PO DAILY 10/31/21 09/15/22 09/07/22 History blister powder for inhalation (Incruse Ellipta) montelukast 10 mg tablet 1 tab PO BEDTIME 02/13/22 09/15/22 09/07/22 History insulin glargine 100 unit/mL (3 20 unit subcut BID 03/23/22 09/15/22 09/07/22 History mL) subcutaneous pen (Lantus Solostar U-100 Insulin) gabapentin 300 mg capsule 2 cap PO BID 05/01/22 09/15/22 09/07/22 History albuterol sulfate 2.5 mg/3 mL 1 vial inhalation Q6H PRN Wheezing 06/19/22 09/15/22 09/07/22 History (0.083 %) solution for nebulization albuterol sulfate 90 mcg/actuation 1 - 2 puff inhalation Q4-6H PRN 06/19/22 09/15/22 09/07/22 History aerosol inhaler (Ventolin HFA) Wheezing lisinopril 20 mg tablet 20 mg PO DAILY 09/08/22 09/15/22 09/07/22 History furosemide 40 mg tablet 40 mg PO BID 09/12/22 09/15/22 Unknown History Physical Exam Vital Signs: Vital Signs: Last Vital Signs Temp 97.2 F 09/15/22 08:50 Pulse 90 09/15/22 08:50 Resp 16 09/15/22 08:50 BP 139/77 09/15/22 08:50 Pulse Ox 97 09/15/22 08:50 O2 Del Method Room Air 09/15/22 08:50 BMI result Body Mass Index 31.5 Const: General: cooperative HEENT: Head: Yes normal to inspection Face and sinus: Yes normal facial exam Mouth: Normal oral and palatal mucosa present Teeth and gingiva: dentition normal Eyes: General: appearance normal, both eyes and all related structures Pupils: Equal, round and reactive pupils present Resp: Effort & Inspection: normal respiratory effort Cardio: Rate: regular rate Rhythm: regular rhythm GI: Palpation (GI): Soft to palpation and nontender : General: Yes no CVA tenderness Back/Spine/Pelvis: Back: no CVA tenderness Skin: General skin exam: no rashes or lesions noted Neuro: General: moves all extremities Cranial nerves: Yes Equal, round and reactive pupils present Extrem: Other: eschar left heel,necrotic and thick callus some acute appearing cellulitis left leg left great toe chronic appearance Psych: Appearance: grossly normal Results Labs 09/15/22 05:48 09/15/22 05:48 Labs: Short CBC 09/15/22 09/15/22 Range/Units 00:44 05:48 WBC 16.0 H 11.9 H (4.8-10.8) X10*3/uL Hgb 9.2 L 8.8 L (12.0-16.0) g/dl Hct 32.0 L 31.1 L (37.0-47.0) % Plt Count 236 196 (160-400) X10*3/uL BMP 09/15/22 09/15/22 00:44 05:48 Sodium 133 L 137 Potassium 5.7 H D 4.0 D Chloride 96 103 Carbon Dioxide 26 25 BUN 27 H 22 H Creatinine 1.37 0.86 Calcium 8.4 7.7 L D Liver Function 09/15/22 Range/Units 00:44 Total Bilirubin 1.0 (0.0-1.0) mg/dL AST 26 (5-31) U/L ALT 15 (0-31) U/L Alkaline Phosphatase 85 (39-117) U/L Albumin 2.9 L (3.5-5.0) g/dL Assessment and Plan (1) Diabetic foot infection: Status: Acute Patient has some acute left leg cellulitis and chronic ichthyosis skin foot ?walking barefoot (patient denies). Osteomyelitis is chronic (2) Cellulitis in diabetic foot: Status: Acute Plan Continue broadspectrum antibiotics for now and plan po Ceftin and Doxycycline outpatient for 10-14 d Surgery consult address eschar and depth but above plan for now. OM is chronic and residential IV antibiotics not indicated at this time. Time Spent With Patient Time: Total time managing care of this patient today ____ minutes.
--- NOTE | 2022-09-15 13:55 | P.EN_ITS ---
Event Note Date of Service: 09/15/22 Event Note: seen and examined this morning admitted overnight for nonhealing foot wound. pt admitted 09/08- left AMA 09/10, re-admitted 09/12 and left AMA on 09/13 patient reporting left heel pain #? cellulitis of left lower extremity/diabetic foot wound #? infected diabetic foot wounds continue IV cefepime, vanco ? - general surgery was consulted on previous admission with plan for I&D - will re-consult General surgery #? chronic osteomyelitis of left great toe no need for IV abx at this time #? asthma states chronic shortness of breath and cough with no worsening symptoms -? DuoNeb p.r.n. #? Chronic HFrEF -?not in exacerbation -? continue Lasix # CAD with recent STEMI s/p BARTOLOME to the proximal LAD August 2022/ischemic cardiomyopathy- no chest pain obtained cath report and DC summary from [facility] 08/31 Not on med rec but previously taking --> brilinta and aspirin, carvedilol 3.125 mg b.i.d, atorvastatin 80 mg according to d/c from [facility]. pt denies any knowledge. will consult cardiology #PAD -lower extremity artery duplex on 06/21/2022 showing chronic total occlusion of the proximal mid superficial femoral artery with reconstituted flow in the popliteal artery and likely occlusion of the posterior tibial artery below the knee.? Left leg with chronic total occlusion of the mid to superficial femoral artery with reconstituted flow in the popliteal artery #?uncontrolled T2DM with hyperglycemia Lantus 20U ADA diet, SSI # Chronic iron deficiency anemia -H/H stable-above transfusion threshold DVT prophylaxis:? Korin attending - dr. vo Time Spent With Patient Time: Total time managing care of this patient today ____ minutes.
[2022-09-15] MEDS: Morphine Sulfate 4 MG/ML CARTRIDGE 2 MG IVPUSH ×3 (14:43→20:29)
--- NOTE | 2022-09-15 15:45 | PM.CNCAR ---
History of Present Illness History of Present Illness Date of Service: 09/15/22 Requesting physician: Stephanie Flores Chief complaint: CAD s/p PCI, foot infection Narrative: 52-year-old female who has complex medical issues including diabetes, peripheral vascular disease, asthma/COPD and previous VA and the cardiomyopathy with ejection fraction 10-15%. She recently came to [facility] with anterior ST elevations and chest discomfort and was transferred to [facility]. Cardiac catheterization at that time showed occluded LAD. Preceding that she had diagnostic angiography which showed multivessel disease and she was referred for bypass surgery but it appears she did not show up for surgery and was not getting the required workup before surgery. She had LAD PCI and was started on aspirin and Brilinta. She came to [facility] after that couple of times a left AMA. Previously she has done against medical advice multiple times. She is coming now with foot infection and will require surgery. She is saying she did not take her medications when she saw the medicine team but doing interview with me she is saying she is taking all medications. As mentioned she had recent LAD PCI in the setting of anterior ST-elevation VA. She has known severe cardiomyopathy with EF 20 15%. She has peripheral edema but does not have any significant JVD. She is denying any significant shortness of breath. Her main complaint is left foot pain. [facility] Past Medical History Medical History Asthma Atherosclerotic cardiovascular disease Atrial tachycardia COPD (chronic obstructive pulmonary disease) COVID-19 vaccine series completed Diabetes Diabetic foot infection Diabetic toe ulcer Essential hypertension GERD (gastroesophageal reflux disease) Hypertension Left against medical advice Left against medical advice Osteomyelitis PAD (peripheral artery disease) Family History Family History Mother Hx of CABG Sister CAD (coronary artery disease) Family history: reviewed and not pertinent Surgical History Surgical History History of esophagogastroduodenoscopy (EGD) History of toe surgery (09/22/21) Social History Social History Household Members: Family and Children Housing: Apartment Do you presently have visiting nurse or other home services: No Unable to assess alcohol history related to: Refusing to respond Alcohol intake: never Patient Tobacco Use Status: Current everyday Tobacco user Tobacco use type: Cigarette Cigarette Packs Per Day: 0.5 Cigarettes Per Day: 3 Years Smoked: 43 e-Cigarette/Vaping Use: Currently Using Second Hand Smoke Exposure: Yes Advance Directives Date on File: 12/28/20 service: No Current occupational status: unemployed and disabled Meds Allergies Allergy/AdvReac Type Severity Reaction Status Date / Time Penicillins [PENICILLINS] Allergy Severe RASH Verified 08/27/22 17:42 amoxicillin [AMOXICILLIN] Allergy Intermediate HIVES Verified 08/27/22 17:42 codeine Allergy Itching Verified 08/27/22 17:42 Active Medications: Current Medications Acetaminophen (Acetaminophen 325 Mg Tablet) 650 mg PO Q6H PRN PRN Reason: Pain, Mild (Pain Scale 1-3) Albuterol Sulfate (Albuterol Sulfate (0.083%) 2.5 Mg/3 Ml Vial.Neb) 2.5 mg INHALE Q6H PRN PRN Reason: Wheezing Aspirin (Aspirin Enteric Coated 81 Mg Tablet.Dr) 81 mg PO DAILY MÓNICA Docusate Sodium (Docusate Sodium 100 Mg Capsule) 100 mg PO DAILY PRN PRN Reason: Constipation Enoxaparin Sodium (Enoxaparin Sodium 40 Mg/0.4 Ml Syringe) 40 mg SUBCUT Q24H [facility] Last Admin: 09/15/22 05:17 Dose: 40 mg Furosemide (Furosemide 40 Mg Tablet) 40 mg PO DAILY [facility]; Protocol Glucose (Glucose Gel 15 Gm Gel..Gram.) 15 gm PO Q15M PRN; Protocol PRN Reason: per Hypoglycemia Standing Ord. Dextrose (D10) 250 mls @ 750 mls/hr IV Q15M PRN; Protocol PRN Reason: per Hypoglycemia Standing Ord. Cefepime HCl 2 gm/ Sodium (Chloride) 50 mls @ 100 mls/hr IV Q8H [facility] Last Infusion: 09/15/22 14:35 Dose: Infused Vancomycin HCl 1,250 mg/ (Sodium Chloride) 250 mls @ 166.667 mls/hr IV Q24H [facility] Insulin Glargine (Insulin Glargine,Hum.Rec.Anlog 100 Unit/Ml 10 Ml Vial) 20 unit SUBCUT DAILY [facility] Insulin Human Lispro (Insulin Lispro 100 Unit/Ml 3 Ml Vial) 0 unit SUBCUT QIDACHS M[facility]NICA; Protocol Last Admin: 09/15/22 11:55 Dose: 4 unit Montelukast Sodium (Montelukast Sodium 10 Mg Tablet) 10 mg PO BEDTIME M[facility]NICA Morphine Sulfate (Morphine Sulfate 4 Mg/Ml Cartridge) 2 mg IVPUSH Q3H PRN; Protocol PRN Reason: Pain, Severe (Pain Scale 7-10) Last Admin: 09/15/22 14:43 Dose: 2 mg Ondansetron HCl (Ondansetron Hcl 4 Mg/2 Ml Vial) 4 mg IVPUSH Q8H PRN PRN Reason: Nausea and Vomiting Pharmacy Consult (Consult Rx Vancomycin Dosing) 1 each MISCELLANE DAILY PRN PRN Reason: Consult order Pharmacy Consult (Consult Rx Perform Med Rec) 1 each MISCELLANE ONCE PRN PRN Reason: Consult order Sodium Chloride (0.9 % Sodium Chloride Flush 3 Ml Syringe) 3 [facility] Last Admin: 09/15/22 14:33 Dose: Not Given Ticagrelor (Ticagrelor 90 Mg Tablet) 180 mg PO ONCE ONE Stop: 09/15/22 15:33 Ticagrelor (Ticagrelor 90 Mg Tablet) 90 mg PO BID [facility] Home Medications Medication Instructions Recorded Confirmed Last Taken Type aspirin 81 mg tablet,delayed 1 tab PO DAILY 12/24/20 09/15/22 09/07/22 History release umeclidinium 62.5 mcg/actuation 1 puff PO DAILY 10/31/21 09/15/22 09/07/22 History blister powder for inhalation (Incruse Ellipta) montelukast 10 mg tablet 1 tab PO BEDTIME 02/13/22 09/15/22 09/07/22 History insulin glargine 100 unit/mL (3 20 unit subcut BID 03/23/22 09/15/22 09/07/22 History mL) subcutaneous pen (Lantus Solostar U-100 Insulin) gabapentin 300 mg capsule 2 cap PO BID 05/01/22 09/15/22 09/07/22 History albuterol sulfate 2.5 mg/3 mL 1 vial inhalation Q6H PRN Wheezing 06/19/22 09/15/22 09/07/22 History (0.083 %) solution for nebulization albuterol sulfate 90 mcg/actuation 1 - 2 puff inhalation Q4-6H PRN 06/19/22 09/15/22 09/07/22 History aerosol inhaler (Ventolin HFA) Wheezing lisinopril 20 mg tablet 20 mg PO DAILY 09/08/22 09/15/22 09/07/22 History furosemide 40 mg tablet 40 mg PO BID 09/12/22 09/15/22 Unknown History Physical Exam Vital Signs: Vital Signs: Last Vital Signs Temp 97.2 F 09/15/22 08:50 Pulse 90 09/15/22 08:50 Resp 16 09/15/22 08:50 BP 139/77 09/15/22 08:50 Pulse Ox 97 09/15/22 08:50 O2 Del Method Room Air 09/15/22 08:50 BMI result Body Mass Index 31.5 GENERAL APPEARANCE: in no acute distress. NECK: no carotid bruit, no jugular venous distention. SKIN: no suspicious lesions, warm and dry. HEART: no murmurs, regular rate and rhythm. LUNGS: Crackles both bases. ABDOMEN: soft, nontender. EXTREMITIES: Mild edema. Left foot dressed. PERIPHERAL PULSES: equal. NEUROLOGIC: No gross deficits, AAO X 3 Objective Labs and Meds 09/15/22 05:48 09/15/22 05:48 Lab results: Laboratory Results - last 24 hr 09/15/22 09/15/22 09/15/22 00:44 00:44 00:44 WBC 16.0 H RBC 4.67 Hgb 9.2 L Hct 32.0 L MCV 68.5 L MCH 19.7 L MCHC 28.8 L RDW 22.0 H Plt Count 236 MPV 11.4 Immature Gran % (Auto) 0.8 H Neut % (Auto) 84.5 H Lymph % (Auto) 9.8 L Mcminn % (Auto) 4.5 Eos % (Auto) 0.3 Baso % (Auto) 0.1 Lymph # (Auto) 1.6 Mcminn # (Auto) 0.7 Eos # (Auto) 0.0 Baso # (Auto) 0.0 Abs Immat Gran (auto) 0.12 H Absolute Neuts (auto) 13.5 H Absolute Nucleated RBC 0.000 Nucleated RBC % (auto) 0.0 Smear Tech's Comments VBG pH VBG pCO2 VBG pO2 VBG HCO3 VBG O2 Saturation VBG Base Excess Sodium 133 L Potassium 5.7 H D Chloride 96 Carbon Dioxide 26 Anion Gap 17 BUN 27 H Creatinine 1.37 Estim Creat Clear Calc 45.0 Estimated GFR 41 POC Glucose Random Glucose 710 H* Lactic Acid Lactic Acid F/U @ 2Hr 3.4 H* Lactic Acid F/U @ 4Hr Calcium 8.4 Total Bilirubin 1.0 AST 26 ALT 15 Alkaline Phosphatase 85 Total Protein 6.3 L Albumin 2.9 L Acetone, Qual Negative COVID-19 (KATHLEEN) COVID-19 [employer] 09/15/22 09/15/22 09/15/22 01:32 02:22 02:59 WBC RBC Hgb Hct MCV MCH MCHC RDW Plt Count MPV Immature Gran % (Auto) Neut % (Auto) Lymph % (Auto) Mcminn % (Auto) Eos % (Auto) Baso % (Auto) Lymph # (Auto) Mcminn # (Auto) Eos # (Auto) Baso # (Auto) Abs Immat Gran (auto) Absolute Neuts (auto) Absolute Nucleated RBC Nucleated RBC % (auto) Smear Tech's Comments VBG pH 7.41 VBG pCO2 40 VBG pO2 43 VBG HCO3 25 VBG O2 Saturation TNP VBG Base Excess 1.2 Sodium Potassium Chloride Carbon Dioxide Anion Gap BUN Creatinine Estim Creat Clear Calc Estimated GFR POC Glucose 544 H* Random Glucose Lactic Acid Lactic Acid F/U @ 2Hr Lactic Acid F/U @ 4Hr Calcium Total Bilirubin AST ALT Alkaline Phosphatase Total Protein Albumin Acetone, Qual COVID-19 (KATHLEEN) Negative COVID-19 [employer] See Note 09/15/22 09/15/22 09/15/22 03:15 03:57 05:37 WBC RBC Hgb Hct MCV MCH MCHC RDW Plt Count MPV Immature Gran % (Auto) Neut % (Auto) Lymph % (Auto) Mcminn % (Auto) Eos % (Auto) Baso % (Auto) Lymph # (Auto) Mcminn # (Auto) Eos # (Auto) Baso # (Auto) Abs Immat Gran (auto) Absolute Neuts (auto) Absolute Nucleated RBC Nucleated RBC % (auto) Smear Tech's Comments VBG pH VBG pCO2 VBG pO2 VBG HCO3 VBG O2 Saturation VBG Base Excess Sodium Potassium Chloride Carbon Dioxide Anion Gap BUN Creatinine Estim Creat Clear Calc Estimated GFR POC Glucose 418 H* 353 H* Random Glucose Lactic Acid Lactic Acid F/U @ 2Hr Lactic Acid F/U @ 4Hr 2.5 H* Calcium Total Bilirubin AST ALT Alkaline Phosphatase Total Protein Albumin Acetone, Qual COVID-19 (KATHLEEN) COVID-19 [employer] 09/15/22 09/15/22 09/15/22 05:48 05:48 07:22 WBC 11.9 H RBC 4.54 Hgb 8.8 L Hct 31.1 L MCV 68.5 L MCH 19.4 L MCHC 28.3 L RDW 21.3 H Plt Count 196 MPV Not Reportable Immature Gran % (Auto) 0.8 H Neut % (Auto) 80.6 H Lymph % (Auto) 12.5 L Mcminn % (Auto) 5.7 Eos % (Auto) 0.3 Baso % (Auto) 0.1 Lymph # (Auto) 1.5 Mcminn # (Auto) 0.7 Eos # (Auto) 0.0 Baso # (Auto) 0.0 Abs Immat Gran (auto) 0.10 H Absolute Neuts (auto) 9.6 H Absolute Nucleated RBC 0.000 Nucleated RBC % (auto) 0.0 Smear Tech's Comments VERIFIED VBG pH VBG pCO2 VBG pO2 VBG HCO3 VBG O2 Saturation VBG Base Excess Sodium 137 Potassium 4.0 D Chloride 103 Carbon Dioxide 25 Anion Gap 13 BUN 22 H Creatinine 0.86 Estim Creat Clear Calc 71.7 Estimated GFR > 60 POC Glucose Random Glucose 384 H* Lactic Acid 1.8 Lactic Acid F/U @ 2Hr Lactic Acid F/U @ 4Hr Calcium 7.7 L D Total Bilirubin AST ALT Alkaline Phosphatase Total Protein Albumin Acetone, Qual COVID-19 (KATHLEEN) COVID-19 [employer] 09/15/22 09/15/22 09/15/22 07:32 08:47 11:20 WBC RBC Hgb Hct MCV MCH MCHC RDW Plt Count MPV Immature Gran % (Auto) Neut % (Auto) Lymph % (Auto) Mcminn % (Auto) Eos % (Auto) Baso % (Auto) Lymph # (Auto) Mcminn # (Auto) Eos # (Auto) Baso # (Auto) Abs Immat Gran (auto) Absolute Neuts (auto) Absolute Nucleated RBC Nucleated RBC % (auto) Smear Tech's Comments VBG pH VBG pCO2 VBG pO2 VBG HCO3 VBG O2 Saturation VBG Base Excess Sodium Potassium Chloride Carbon Dioxide Anion Gap BUN Creatinine Estim Creat Clear Calc Estimated GFR POC Glucose 312 H 251 H 219 H Random Glucose Lactic Acid Lactic Acid F/U @ 2Hr Lactic Acid F/U @ 4Hr Calcium Total Bilirubin AST ALT Alkaline Phosphatase Total Protein Albumin Acetone, Qual COVID-19 (KATHLEEN) COVID-19 Clin Com Assessment and Plan (1) Diabetic foot infection: Status: Acute (2) Ischemic cardiomyopathy: Status: Acute (3) Coronary artery disease: Status: Acute Plan 52-year-old female presenting for left diabetic foot infection. She will need surgery for this. She is really VA and is on aspirin and ticagrelor. There is some concern that she is not taking medications. I think with a recent PCI it is dangerous to be off antiplatelets and if compliance she should have a reload of Brilinta 90 mg and she would be given for dose of aspirin 324 mg. I have discussed this with the patient and she is saying she is taking and medications at home but there is some concern about compliance as historically she has not been very compliant with medications or her overall care. She appears mildly overloaded but is denying any significant symptoms. She can have a her surgery done under local anesthesia on nerve block. I would try to avoid general anaesthesia but in case she has to go for general anaesthesia then she is a moderate to high risk for perioperative cardiovascular complications. Thank you for allowing me to participate in the care of your patient. Please feel free to contact me if you have any questions. Time Spent With Patient Time: Total time managing care of this patient today ____ minutes. Procedures Date of Service Date of Service: 09/15/22
--- NOTE | 2022-09-15 16:00 | PM.EVENT ---
Event Note Date of Service: 09/15/22 Event Note: Drainage of left heal abscess, debridement of heal ulcer Patient not medically cleared for general anesthesia, therefore procedure performed at bedside without anesthesia. After assuring informed consent, the left heal skin was prepped with betadine. A sharp scissors was then used to debride the heal ulcer of skin 2 x 2 cm diameter. An abscess on the medial aspect of the heal was then drained using a scissors to unroof the overlying skin, producing a small foul smelling purulent collection. Wounds were packed with 2x2 gauze followed by DSD. Patient tolerated this well. Will monitor wounds closely. Continue IV antibiotics. ? repeat CT of left foot. Time Spent With Patient Time: Total time managing care of this patient today ____ minutes.
[2022-09-15] MEDS: Ticagrelor 90 MG TABLET 180 MG PO (16:04)
[2022-09-15] MEDS: Aspirin Enteric Coated 81 MG TABLET.DR PO (16:04)
[2022-09-15 16:10] LABS: Glucose, Whole Blood 90 mg/dL (60-115)
[2022-09-15] MEDS: Albuterol Sulfate (0.083%) 2.5 MG/3 ML VIAL.NEB INHALE (17:30)
[2022-09-15 20:26] LABS: Glucose, Whole Blood 124 mg/dL (60-115)
[2022-09-15] MEDS: Montelukast Sodium 10 MG TABLET PO (20:27)
[2022-09-15] MEDS: Ticagrelor 90 MG TABLET PO (20:28)
[2022-09-16] MEDS: Morphine Sulfate 4 MG/ML CARTRIDGE 2 MG IVPUSH ×4 (02:09→23:26)
[2022-09-16] MEDS: vancomycin HCL 1,250 MG in 0.9 % Sodium Chloride 250 ML 166.67 MG IV ×2 (02:10→23:21)
[2022-09-16 03:34] VITALS: BP 128/70; PULSE 92; RESP 18; TEMP 36.1; O2SAT 97
[2022-09-16] MEDS: cefEPime HCl 2 GM in 0.9 % Sodium Chloride 50 ML IV ×2 (06:12→18:32)
[2022-09-16 07:32] LABS: Glucose, Whole Blood 113 mg/dL (60-115)
[2022-09-16 07:53] VITALS: BP 135/75; PULSE 93; RESP 18; TEMP 36.4; O2SAT 99
[2022-09-16] MEDS: Insulin Glargine,Hum.rec.anlog 100 UNIT/ML 10 ML VIAL 20 UNIT SUBCUT (08:27)
[2022-09-16] MEDS: Furosemide 40 MG TABLET PO (08:28)
[2022-09-16] MEDS: 0.9 % Sodium Chloride Flush 3 ML SYRINGE IVFLUSH ×2 (08:33→19:33)
[2022-09-16 09:51] LABS: Hematocrit 37.3 % (37.0-47.0); Hemoglobin 10.6 g/dl (12.0-16.0); Mean Corpuscular HGB Conc 28.4 g/dl (31.0-35.0); Mean Corpuscular Hemoglobin 19.5 pg (27.0-33.0); Mean Corpuscular Volume 68.7 fL (80.0-98.0); Platelet Count 243 X10*3/uL (160-400); Red Blood Count 5.43 X10*6/uL (4.20-5.50); Red Cell Distribution Width 21.6 % (11.0-16.0); White Blood Count 14.5 X10*3/uL (4.8-10.8)
[2022-09-16 10:03] LABS: Anion Gap 12 (12-20); Blood Urea Nitrogen 22 mg/dL (9-16); Calcium 8.4 mg/dL (8.4-10.2); Carbon Dioxide 29 mmol/L (22-29); Chloride 104 mmol/L (96-108); Creatinine Clr Calc Pharmacy 81.6; Estimated Glomerular Filt Rate > 60; Glucose Random 110 mg/dL (60-115); Potassium 3.9 mmol/L (3.3-5.1); Sodium 141 mmol/L (135-145)
[2022-09-16] MEDS: Ticagrelor 90 MG TABLET PO ×2 (10:26→19:31)
[2022-09-16] MEDS: Aspirin Enteric Coated 81 MG TABLET.DR PO (10:26)
[2022-09-16 10:43] VITALS: BP 135/75; PULSE 93; O2SAT 99
--- NOTE | 2022-09-16 10:59 | MHC.CM.PN ---
Addendum entered by Maggi Emmanuel 09/16/22 14:55: A new HCP has been documented at the request of the patient. She has named her dtr Arabella Maria. PT eval performed. Patient does not require PT at this time. Original Note: Per MD rounds PT ordered to assist with dispo. Discharge is anticipated tomorrow. DP pending PT eval Home vs STR. transport will depend on dispo too.
[2022-09-16 11:15] LABS: Glucose, Whole Blood 111 mg/dL (60-115)
--- NOTE | 2022-09-16 12:47 | P.PNGS_ITS ---
Subjective Subjective Date of Service: 09/16/22 Interval history: Complains of increased pain in the left heel Physical Exam Vital Signs: Vital Signs: Last Vital Signs Temp 97.5 F 09/16/22 07:53 Pulse 93 09/16/22 10:43 Resp 18 09/16/22 07:53 BP 135/75 09/16/22 10:43 Pulse Ox 99 09/16/22 10:43 O2 Del Method Room Air 09/16/22 07:53 BMI result Body Mass Index 31.5 Const: General: anxious, poor hygiene and tired appearing Nutritional Appearance: well nourished Resp: Effort & Inspection: normal respiratory effort Extrem: Other: Left heel dressings changed. Significant amount of purulence discharge on dressings. Necrotic changes now noted in the heel both the medial lateral surface. Patient examined in the reclining chair with full pressure noted on heel. Clean dressings applied. Wounds padded to reduce pressure on heel. Objective Data Active Medications Acetaminophen (Acetaminophen 325 Mg Tablet) 650 mg PO Q6H PRN PRN Reason: Pain, Mild (Pain Scale 1-3) Albuterol Sulfate (Albuterol Sulfate (0.083%) 2.5 Mg/3 Ml Vial.Neb) 2.5 mg INHALE Q6H PRN PRN Reason: Wheezing Last Admin: 09/15/22 17:30 Dose: 2.5 mg Documented By: SANTIAGO Aspirin (Aspirin Enteric Coated 81 Mg Tablet.) 81 mg PO DAILY [facility] Last Admin: 09/16/22 10:26 Dose: 81 mg Documented By: BILL Atorvastatin Calcium (Atorvastatin Calcium 80 Mg Tablet) 80 mg PO BEDTIME [facility] Docusate Sodium (Docusate Sodium 100 Mg Capsule) 100 mg PO DAILY PRN PRN Reason: Constipation Enoxaparin Sodium (Enoxaparin Sodium 40 Mg/0.4 Ml Syringe) 40 mg SUBCUT Q24H [facility] Last Admin: 09/16/22 05:26 Dose: Not Given Documented By: SEGUN Non-Admin Reason: Physician Held Med Furosemide (Furosemide 40 Mg Tablet) 40 mg PO DAILY [facility]; Protocol Last Admin: 09/16/22 08:28 Dose: 40 mg Documented By: BILL Glucose (Glucose Gel 15 Gm Gel..Gram.) 15 gm PO Q15M PRN; Protocol PRN Reason: per Hypoglycemia Standing Ord. Dextrose (D10) 250 mls @ 750 mls/hr IV Q15M PRN; Protocol PRN Reason: per Hypoglycemia Standing Ord. Cefepime HCl 2 gm/ Sodium (Chloride) 50 mls @ 100 mls/hr IV Q8H [facility] Last Infusion: 09/16/22 06:50 Dose: 0 mls/hr Documented By: SEGUN Vancomycin HCl 1,250 mg/ (Sodium Chloride) 250 mls @ 166.667 mls/hr IV Q24H [facility] Last Infusion: 09/16/22 03:52 Dose: 0 mls/hr Documented By: SEGUN Insulin Glargine (Insulin Glargine,Hum.Rec.Anlog 100 Unit/Ml 10 Ml Vial) 20 unit SUBCUT DAILY [facility] Last Admin: 09/16/22 08:27 Dose: 20 unit Documented By: BILL Insulin Human Lispro (Insulin Lispro 100 Unit/Ml 3 Ml Vial) 0 unit SUBCUT QIDACHS [facility]; Protocol Last Admin: 09/16/22 11:36 Dose: Not Given Documented By: BILL Non-Admin Reason: No Insulin Coverage Montelukast Sodium (Montelukast Sodium 10 Mg Tablet) 10 mg PO BEDTIME [facility] Last Admin: 09/15/22 20:27 Dose: 10 mg Documented By: SEGUN Morphine Sulfate (Morphine Sulfate 4 Mg/Ml Cartridge) 2 mg IVPUSH Q3H PRN; Protocol PRN Reason: Pain, Severe (Pain Scale 7-10) Last Admin: 09/16/22 08:28 Dose: 2 mg Documented By: BILL Ondansetron HCl (Ondansetron Hcl 4 Mg/2 Ml Vial) 4 mg IVPUSH Q8H PRN PRN Reason: Nausea and Vomiting Pharmacy Consult (Consult Rx Vancomycin Dosing) 1 each MISCELLANE DAILY PRN PRN Reason: Consult order Pharmacy Consult (Consult Rx Perform Med Rec) 1 each MISCELLANE ONCE PRN PRN Reason: Consult order Sodium Chloride (0.9 % Sodium Chloride Flush 3 Ml Syringe) 3 ml IVFLUSH QSHIFT [facility] Last Admin: 09/16/22 08:33 Dose: 3 ml Documented By: BILL Ticagrelor (Ticagrelor 90 Mg Tablet) 90 mg PO BID [facility] Last Admin: 09/16/22 10:26 Dose: 90 mg Documented By: BILL Labs 09/16/22 09:42 09/16/22 09:42 Labs: Laboratory Results - last 24 hr 09/15/22 09/15/22 09/16/22 16:06 20:15 07:20 MCV MCH MCHC RDW Plt Count MPV Absolute Nucleated RBC Nucleated RBC % (auto) Anion Gap Estim Creat Clear Calc Estimated GFR POC Glucose 90 124 H 113 Random Glucose Calcium 09/16/22 09/16/22 09/16/22 09:42 09:42 09:42 MCV 68.7 L MCH 19.5 L MCHC 28.4 L RDW 21.6 H Plt Count 243 MPV Not Reportable Absolute Nucleated RBC 0.000 Nucleated RBC % (auto) 0.0 Anion Gap 12 Estim Creat Clear Calc Cancelled 81.6 Estimated GFR Cancelled > 60 POC Glucose Random Glucose 110 Calcium 8.4 D 09/16/22 11:09 MCV MCH MCHC RDW Plt Count MPV Absolute Nucleated RBC Nucleated RBC % (auto) Anion Gap Estim Creat Clear Calc Estimated GFR POC Glucose 111 Random Glucose Calcium Microbiology Microbiology Results: Microbiology 09/15/22 01:27 Blood Culture - Preliminary Blood - Venous No growth after 24 hours. 09/15/22 01:27 Blood Culture - Preliminary Blood - Venous No growth after 24 hours. Procedures Date of Service Date of Service: 09/16/22 Progress Note: A&P Assessment and plan (1) Diabetic foot infection: Status: Acute Plan Patient with increased necrotic changes noted at the heel with significant amount of purulent discharge on dressings. Patient awaiting the foot CT once IV replaced. Patient will need either extensive debridement of the heel which would be difficult to heal verses below-knee amputation if extensive infection identified by CT. Situation made more difficult due to underlying cardiac issues. Discussed with medical team. Will continue to monitor. Time Spent With Patient Time: Total time managing care of this patient today ____ minutes. Quality Stroke Does the patient have a stroke diagnosis?: No VTE Prior VTE?: No VTE Risk Level:: Medical - moderate - high VTE Device Contraindication: Treatment Not Indicated VTE Drug Contraindication: N/A - Med Ordered
--- NOTE | 2022-09-16 14:23 | HO.PM.IMPN ---
Subjective Subjective Date of Service: 09/16/22 Interval History: seen and examined this morning follow up for left foot infection s/p bedside debridement yesterday no overnight events noted reporting left foot pain Review of Systems Review of Systems: Yes all other systems are reviewed and are negative Constitutional Constitutional: Denies chills and Denies fever(s) Cardiovascular Cardiovascular: Denies chest pain, Denies palpitations and Denies dyspnea Respiratory Respiratory: Denies cough and Denies dyspnea Gastrointestinal Gastrointestinal: Denies abdominal pain Endocrine Endocrine: Denies palpitations Physical Exam Vital Signs: Vital Signs: Last Vital Signs Temp 97.5 F 09/16/22 07:53 Pulse 93 09/16/22 10:43 Resp 18 09/16/22 07:53 BP 135/75 09/16/22 10:43 Pulse Ox 99 09/16/22 10:43 O2 Del Method Room Air 09/16/22 07:53 BMI result Body Mass Index 31.5 Const: General: alert and awake Nutritional Appearance: average body habitus Resp: Effort & Inspection: normal respiratory effort and able to speak in complete sentences Cardio: Rate: regular rate Heart sounds: S1 normal heart sound present and S2 normal heart sound present Extrem: Other: left foot wrapped in c/d/i dressing; b/l leg edema Objective Data Active Medications Acetaminophen (Acetaminophen 325 Mg Tablet) 650 mg PO Q6H PRN PRN Reason: Pain, Mild (Pain Scale 1-3) Albuterol Sulfate (Albuterol Sulfate (0.083%) 2.5 Mg/3 Ml Vial.Neb) 2.5 mg INHALE Q6H PRN PRN Reason: Wheezing Last Admin: 09/15/22 17:30 Dose: 2.5 mg Documented By: SANTIAGO Aspirin (Aspirin Enteric Coated 81 Mg Tablet.) 81 mg PO DAILY [facility] Last Admin: 09/16/22 10:26 Dose: 81 mg Documented By: BILL Atorvastatin Calcium (Atorvastatin Calcium 80 Mg Tablet) 80 mg PO BEDTIME [facility] Docusate Sodium (Docusate Sodium 100 Mg Capsule) 100 mg PO DAILY PRN PRN Reason: Constipation Enoxaparin Sodium (Enoxaparin Sodium 40 Mg/0.4 Ml Syringe) 40 mg SUBCUT Q24H [facility] Last Admin: 09/16/22 05:26 Dose: Not Given Documented By: SEGUN Non-Admin Reason: Physician Held Med Furosemide (Furosemide 40 Mg Tablet) 40 mg PO DAILY [facility]; Protocol Last Admin: 09/16/22 08:28 Dose: 40 mg Documented By: BILL Glucose (Glucose Gel 15 Gm Gel..Gram.) 15 gm PO Q15M PRN; Protocol PRN Reason: per Hypoglycemia Standing Ord. Dextrose (D10) 250 mls @ 750 mls/hr IV Q15M PRN; Protocol PRN Reason: per Hypoglycemia Standing Ord. Cefepime HCl 2 gm/ Sodium (Chloride) 50 mls @ 100 mls/hr IV Q8H [facility] Last Infusion: 09/16/22 06:50 Dose: 0 mls/hr Documented By: SEGUN Vancomycin HCl 1,250 mg/ (Sodium Chloride) 250 mls @ 166.667 mls/hr IV Q24H [facility] Last Infusion: 09/16/22 03:52 Dose: 0 mls/hr Documented By: SEGUN Insulin Glargine (Insulin Glargine,Hum.Rec.Anlog 100 Unit/Ml 10 Ml Vial) 20 unit SUBCUT DAILY [facility] Last Admin: 09/16/22 08:27 Dose: 20 unit Documented By: BILL Insulin Human Lispro (Insulin Lispro 100 Unit/Ml 3 Ml Vial) 0 unit SUBCUT QIDACHS [facility]; Protocol Last Admin: 09/16/22 11:36 Dose: Not Given Documented By: BILL Non-Admin Reason: No Insulin Coverage Montelukast Sodium (Montelukast Sodium 10 Mg Tablet) 10 mg PO BEDTIME [facility] Last Admin: 09/15/22 20:27 Dose: 10 mg Documented By: SEGUN Morphine Sulfate (Morphine Sulfate 4 Mg/Ml Cartridge) 2 mg IVPUSH Q3H PRN; Protocol PRN Reason: Pain, Severe (Pain Scale 7-10) Last Admin: 09/16/22 08:28 Dose: 2 mg Documented By: BILL Ondansetron HCl (Ondansetron Hcl 4 Mg/2 Ml Vial) 4 mg IVPUSH Q8H PRN PRN Reason: Nausea and Vomiting Pharmacy Consult (Consult Rx Vancomycin Dosing) 1 each MISCELLANE DAILY PRN PRN Reason: Consult order Pharmacy Consult (Consult Rx Perform Med Rec) 1 each MISCELLANE ONCE PRN PRN Reason: Consult order Sodium Chloride (0.9 % Sodium Chloride Flush 3 Ml Syringe) 3 ml IVFLUSH QSHIFT [facility] Last Admin: 09/16/22 08:33 Dose: 3 ml Documented By: BILL Ticagrelor (Ticagrelor 90 Mg Tablet) 90 mg PO BID [facility] Last Admin: 09/16/22 10:26 Dose: 90 mg Documented By: BILL Labs 09/16/22 09:42 09/16/22 09:42 Labs: Laboratory Results - last 24 hr 09/15/22 09/15/22 09/16/22 16:06 20:15 07:20 MCV MCH MCHC RDW Plt Count MPV Absolute Nucleated RBC Nucleated RBC % (auto) Anion Gap Estim Creat Clear Calc Estimated GFR POC Glucose 90 124 H 113 Random Glucose Calcium 09/16/22 09/16/22 09/16/22 09:42 09:42 09:42 MCV 68.7 L MCH 19.5 L MCHC 28.4 L RDW 21.6 H Plt Count 243 MPV Not Reportable Absolute Nucleated RBC 0.000 Nucleated RBC % (auto) 0.0 Anion Gap 12 Estim Creat Clear Calc Cancelled 81.6 Estimated GFR Cancelled > 60 POC Glucose Random Glucose 110 Calcium 8.4 D 09/16/22 11:09 MCV MCH MCHC RDW Plt Count MPV Absolute Nucleated RBC Nucleated RBC % (auto) Anion Gap Estim Creat Clear Calc Estimated GFR POC Glucose 111 Random Glucose Calcium Microbiology Microbiology Results: Microbiology 09/15/22 01:27 Blood Culture - Preliminary Blood - Venous No growth after 24 hours. 09/15/22 01:27 Blood Culture - Preliminary Blood - Venous No growth after 24 hours. Assessment and Plan (1) Coronary artery disease: Status: Acute (2) Diabetic foot infection: Status: Acute Plan This is a 52-year-old female with past medical history of CAD s/p STEMI and recent BARTOLOME to LAD at [facility] 08/2022, chronic osteomyelitis of great toe of the left foot, cellulitis as of left lower extremity, diabetic foot ulcer presents to the hospital with complaints of worsening pain and drainage.? pt admitted 09/08- left AMA 09/10, re-admitted 09/12 and left AMA on 09/13 cellulitis of left lower extremity/infected diabetic foot wound? seen by general surgery s/p bedside debridement/I&D 09/[address] of left foot - likely to need further surgical intervention either extensive debridement vs BKA. seen by cardiology and pt moderate to high risk given recent STEMI continue IV cefepime, vanco, started 09/15 ID following chronic osteomyelitis of left great toe no need for IV abx at this time CAD with recent STEMI s/p BARTOLOME to the proximal LAD August 2022/ischemic cardiomyopathy (EF 15%) obtained cath report and DC summary from [facility] 08/31 Not on med rec but previously taking? --> brilinta and aspirin, carvedilol 3.125 mg b.i.d,? atorvastatin 80 mg according to d/c from [facility]. pt noncompliant with meds seen by cardiology: recommend to reload brilinta and resume aspirin, should not stop DAPT; pt at moderate to high risk for postoperative cardiovascular complications if requires surgery/general anesthesia resume BB, statin asthma states chronic shortness of breath and cough with no worsening symptoms DuoNeb p.r.n. Chronic HFrEF not in exacerbation resume Lasix at 40 mg daily and titrate up to 40 bid (dose from [facility]) PAD lower extremity artery duplex on 06/21/2022 showing chronic total occlusion of the proximal mid superficial femoral artery with reconstituted flow in the popliteal artery and likely occlusion of the posterior tibial artery below the knee.? Left leg with chronic total occlusion of the mid to superficial femoral artery with reconstituted flow in the popliteal artery DAPT, statin uncontrolled T2DM with hyperglycemia secondary to noncompliance. Hba1c 10.0. BS 700 on admission POCs controlled on Lantus 20U (on 20 bid at baseline but noncompliant, can up titrate prn) ADA diet, SSI Chronic iron deficiency anemia H/H stable-above transfusion threshold Hyperkalemia resolved. DVT prophylaxis:? Lovenox attending - dr. phelps HCP - daughter Angely patient requires ongoing inpatient hospitalization for IV abx, repeat imaging and possible further surgical intervention for foot infection Time Spent With Patient Time: Total time managing care of this patient today ____ minutes. Quality Stroke Does the patient have a stroke diagnosis?: No VTE Prior VTE?: No VTE Risk Level:: Medical - moderate - high VTE Device Contraindication: Treatment Not Indicated VTE Drug Contraindication: N/A - Med Ordered
--- NOTE | 2022-09-16 14:29 | P.CDIM_ITS ---
PROVIDER RESPONSE TEXT: To clarify, the appropriate diagnosis supported by the clinical indicators: Hyperkalemia, POA, Resolved QUERY TEXT: PHYSICIAN'S DOCUMENTATION REQUEST Date of Query: 09/16/2022 08:34 AM EDT Patient Name: Keisha Chadwick Admit Date: 09/15/2022 Dear Stephanie Flores, A review of the medical record indicates additional documentation may be needed. Please review below and update the documentation accordingly. Clinical Indicators: LAB FINDINGS 4/6 - potassium 5.7 H Based on the above, could you clarify the appropriate diagnosis, if significant, that supports the ab ove abnormalities and additional evaluation, monitoring, and/or treatment rendered: Hyperkalemia, POA, Resolved Other Unable to determine Other (explain) Clinically unable to determine (explain) Thank you, Mahi Nielson, CCS, CDIS Use of terms such as suspected, likely, concern for, or probable (associated with a specific diagnosi s that is being evaluated, monitored, or treated as if it exists) are acceptable and can be coded in the inpatient se tting, when documented at the time of discharge. Please use your independent medical judgment in providing your response. THIS QUERY IS PART OF THE PERMANENT MEDICAL RECORD
[2022-09-16 16:01] VITALS: BP 123/73; PULSE 96; RESP 20; TEMP 36.1; O2SAT 99
[2022-09-16] MEDS: oxyCODONE HCl Immed Release 5 MG TABLET PO ×2 (16:11→17:41)
[2022-09-16] MEDS: Nicotine Polacrilex 2 MG GUM BUCCAL (16:34)
[2022-09-16 16:39] LABS: Glucose, Whole Blood 144 mg/dL (60-115)
[2022-09-16] MEDS: Albuterol Sulfate (0.083%) 2.5 MG/3 ML VIAL.NEB INHALE (18:15)
[2022-09-16 18:16] VITALS: PULSE 92; RESP 18; O2SAT 97
[2022-09-16 19:26] VITALS: BP 126/70; PULSE 92; RESP 16; TEMP 36.1; O2SAT 99
[2022-09-16] MEDS: Montelukast Sodium 10 MG TABLET PO (19:31)
[2022-09-16] MEDS: Atorvastatin Calcium 80 MG TABLET PO (19:31)
[2022-09-16] MEDS: carvediloL 3.125 MG TABLET PO (19:31)
[2022-09-16] MEDS: iohexoL 350 MG/ML 100 ML INFUS..BTL IV (20:01)
[2022-09-16 20:49] LABS: Glucose, Whole Blood 141 mg/dL (60-115)
[2022-09-17] MEDS: cefEPime HCl 2 GM in 0.9 % Sodium Chloride 50 ML IV ×3 (02:59→18:08)
[2022-09-17 03:21] VITALS: BP 126/76; PULSE 79; RESP 16; TEMP 35.9; O2SAT 95
[2022-09-17] MEDS: Morphine Sulfate 4 MG/ML CARTRIDGE 2 MG IVPUSH ×5 (04:19→20:07)
[2022-09-17] MEDS: Enoxaparin Sodium 40 MG/0.4 ML SYRINGE SUBCUT (05:36)
--- NOTE | 2022-09-17 06:42 | P.PNGS_ITS ---
Subjective Subjective Date of Service: 09/17/22 Interval history: patient complaining of persistent left foot pain. Physical Exam Vital Signs: Vital Signs: Last Vital Signs Temp 96.6 F L 09/17/22 03:21 Pulse 79 09/17/22 03:21 Resp 16 09/17/22 03:21 BP 126/76 09/17/22 03:21 Pulse Ox 95 09/17/22 03:21 O2 Del Method Room Air 09/17/22 03:21 BMI result Body Mass Index 31.5 Extrem: Other: Left foot dressing clean dry and intact. Objective Data Active Medications Acetaminophen (Acetaminophen 325 Mg Tablet) 650 mg PO Q6H PRN PRN Reason: Pain, Mild (Pain Scale 1-3) Albuterol Sulfate (Albuterol Sulfate (0.083%) 2.5 Mg/3 Ml Vial.Neb) 2.5 mg INHALE Q6H PRN PRN Reason: Wheezing Last Admin: 09/16/22 18:15 Dose: 2.5 mg Documented By: EMILIE Aspirin (Aspirin Enteric Coated 81 Mg Tablet.) 81 mg PO DAILY [facility] Last Admin: 09/16/22 10:26 Dose: 81 mg Documented By: BILL Atorvastatin Calcium (Atorvastatin Calcium 80 Mg Tablet) 80 mg PO BEDTIME [facility] Last Admin: 09/16/22 19:31 Dose: 80 mg Documented By: KOBI Carvedilol (Carvedilol 3.125 Mg Tablet) 3.125 mg PO BID [facility]; Protocol Last Admin: 09/16/22 19:31 Dose: 3.125 mg Documented By: KOBI Comments: bp 126/70 h 92 Docusate Sodium (Docusate Sodium 100 Mg Capsule) 100 mg PO DAILY PRN PRN Reason: Constipation Enoxaparin Sodium (Enoxaparin Sodium 40 Mg/0.4 Ml Syringe) 40 mg SUBCUT Q24H [facility] Last Admin: 09/17/22 05:36 Dose: 40 mg Documented By: KOBI Furosemide (Furosemide 40 Mg Tablet) 40 mg PO DAILY [facility]; Protocol Last Admin: 09/16/22 08:28 Dose: 40 mg Documented By: BILL Glucose (Glucose Gel 15 Gm Gel..Gram.) 15 gm PO Q15M PRN; Protocol PRN Reason: per Hypoglycemia Standing Ord. Dextrose (D10) 250 mls @ 750 mls/hr IV Q15M PRN; Protocol PRN Reason: per Hypoglycemia Standing Ord. Vancomycin HCl 1,250 mg/ (Sodium Chloride) 250 mls @ 166.667 mls/hr IV Q24H [facility] Last Infusion: 09/17/22 01:04 Dose: 0 mls/hr Documented By: KOBI Cefepime HCl 2 gm/ Sodium (Chloride) 50 mls @ 100 mls/hr IV Q8H [facility] Last Infusion: 09/17/22 03:43 Dose: 0 mls/hr Documented By: KOBI Insulin Glargine (Insulin Glargine,Hum.Rec.Anlog 100 Unit/Ml 10 Ml Vial) 20 unit SUBCUT DAILY [facility] Last Admin: 09/16/22 08:27 Dose: 20 unit Documented By: BILL Insulin Human Lispro (Insulin Lispro 100 Unit/Ml 3 Ml Vial) 0 unit SUBCUT QIDACHS [facility]; Protocol Last Admin: 09/16/22 20:52 Dose: Not Given Documented By: KOBI Non-Admin Reason: No Insulin Coverage Comments: POC 141 Montelukast Sodium (Montelukast Sodium 10 Mg Tablet) 10 mg PO BEDTIME [facility] Last Admin: 09/16/22 19:31 Dose: 10 mg Documented By: KOBI Morphine Sulfate (Morphine Sulfate 4 Mg/Ml Cartridge) 2 mg IVPUSH Q4H PRN; Protocol PRN Reason: Pain, Severe (Pain Scale 7-10) Last Admin: 09/17/22 04:19 Dose: 2 mg Documented By: KOBI Nicotine Polacrilex (Nicotine Polacrilex 2 Mg Gum) 2 mg BUCCAL Q2H PRN PRN Reason: Nicotine Cravings Last Admin: 09/16/22 16:34 Dose: 2 mg Documented By: BILL Ondansetron HCl (Ondansetron Hcl 4 Mg/2 Ml Vial) 4 mg IVPUSH Q8H PRN PRN Reason: Nausea and Vomiting Oxycodone HCl (Oxycodone Hcl Immed Release 5 Mg Tablet) 5 mg PO Q6H PRN PRN Reason: Pain, Moderate (Pain Scale 4-6 Pharmacy Consult (Consult Rx Vancomycin Dosing) 1 each MISCELLANE DAILY PRN PRN Reason: Consult order Pharmacy Consult (Consult Rx Perform Med Rec) 1 each MISCELLANE ONCE PRN PRN Reason: Consult order Sodium Chloride (0.9 % Sodium Chloride Flush 3 Ml Syringe) 3 ml IVFLUSH QSHIFT [facility] Last Admin: 09/16/22 19:33 Dose: 3 ml Documented By: KOBI Ticagrelor (Ticagrelor 90 Mg Tablet) 90 mg PO BID [facility] Last Admin: 09/16/22 19:31 Dose: 90 mg Documented By: KOBI Labs 09/16/22 09:42 09/16/22 09:42 Labs: Laboratory Results - last 24 hr 09/16/22 09/16/22 09/16/22 07:20 09:42 09:42 MCV 68.7 L MCH 19.5 L MCHC 28.4 L RDW 21.6 H Plt Count 243 MPV Not Reportable Absolute Nucleated RBC 0.000 Nucleated RBC % (auto) 0.0 Anion Gap Estim Creat Clear Calc Cancelled Estimated GFR Cancelled POC Glucose 113 Random Glucose Calcium 09/16/22 09/16/22 09/16/22 09:42 11:09 16:27 MCV MCH MCHC RDW Plt Count MPV Absolute Nucleated RBC Nucleated RBC % (auto) Anion Gap 12 Estim Creat Clear Calc 81.6 Estimated GFR > 60 POC Glucose 111 144 H Random Glucose 110 Calcium 8.4 D 09/16/22 20:40 MCV MCH MCHC RDW Plt Count MPV Absolute Nucleated RBC Nucleated RBC % (auto) Anion Gap Estim Creat Clear Calc Estimated GFR POC Glucose 141 H Random Glucose Calcium Microbiology Microbiology Results: Microbiology 09/15/22 01:27 Blood Culture - Preliminary Blood - Venous No growth after 48 hours. 09/15/22 01:27 Blood Culture - Preliminary Blood - Venous No growth after 48 hours. Procedures Date of Service Date of Service: 09/17/22 Progress Note: A&P Assessment and plan (1) Diabetic foot infection: Status: Acute Plan At present, continue local therapy. Eventual operative plan per Dr. Cantu. Time Spent With Patient Time: Total time managing care of this patient today ____ minutes. Quality Stroke Does the patient have a stroke diagnosis?: No VTE Prior VTE?: No VTE Risk Level:: Medical - moderate - high VTE Device Contraindication: Treatment Not Indicated VTE Drug Contraindication: N/A - Med Ordered
[2022-09-17 07:00] VITALS: BP 143/72; PULSE 84; RESP 18; TEMP 36.2; O2SAT 100
[2022-09-17 07:10] LABS: Creatinine Clr Calc Pharmacy 85.8; Estimated Glomerular Filt Rate > 60
[2022-09-17 07:13] LABS: Glucose, Whole Blood 76 mg/dL (60-115)
[2022-09-17] MEDS: oxyCODONE HCl Immed Release 5 MG TABLET PO ×3 (07:28→21:33)
[2022-09-17] MEDS: 0.9 % Sodium Chloride Flush 3 ML SYRINGE IVFLUSH ×3 (07:28→21:30)
[2022-09-17] MEDS: carvediloL 3.125 MG TABLET PO ×2 (09:18→21:29)
[2022-09-17] MEDS: Ticagrelor 90 MG TABLET PO ×2 (09:18→21:29)
[2022-09-17] MEDS: Insulin Glargine,Hum.rec.anlog 100 UNIT/ML 10 ML VIAL 20 UNIT SUBCUT (09:18)
[2022-09-17] MEDS: Aspirin Enteric Coated 81 MG TABLET.DR PO (09:18)
--- NOTE | 2022-09-17 09:24 | P.PNIM_ITS ---
Subjective Subjective Date of Service: 09/17/22 Interval History: seen and examined this morning follow up for diabetic foot wound no overnight events having pain in the left foot denies fever or chills Review of Systems Review of Systems: Yes all other systems are reviewed and are negative Constitutional Constitutional: Denies chills and Denies fever(s) Cardiovascular Cardiovascular: Denies chest pain, Denies palpitations and Denies dyspnea Respiratory Respiratory: Denies cough and Denies dyspnea Gastrointestinal Gastrointestinal: Denies abdominal pain Endocrine Endocrine: Denies palpitations Physical Exam Vital Signs: Vital Signs: Last Vital Signs Temp 97.2 F 09/17/22 07:00 Pulse 84 09/17/22 07:00 Resp 18 09/17/22 07:00 BP 143/72 H 09/17/22 07:00 Pulse Ox 100 09/17/22 07:00 O2 Del Method Room Air 09/17/22 07:00 BMI result Body Mass Index 31.5 Const: General: alert and awake Nutritional Appearance: average body habitus Resp: Effort & Inspection: normal respiratory effort and able to speak in complete sentences Cardio: Rate: regular rate Heart sounds: S1 normal heart sound present and S2 normal heart sound present Extrem: Other: left foot wrapped in dressing with some staining around heel; b/l leg edema L>R Objective Data Active Medications Acetaminophen (Acetaminophen 325 Mg Tablet) 650 mg PO Q6H PRN PRN Reason: Pain, Mild (Pain Scale 1-3) Albuterol Sulfate (Albuterol Sulfate (0.083%) 2.5 Mg/3 Ml Vial.Neb) 2.5 mg INHALE Q6H PRN PRN Reason: Wheezing Last Admin: 09/16/22 18:15 Dose: 2.5 mg Documented By: EMILIE Aspirin (Aspirin Enteric Coated 81 Mg Tablet.) 81 mg PO DAILY [facility] Last Admin: 09/17/22 09:18 Dose: 81 mg Documented By: STEFANIA Atorvastatin Calcium (Atorvastatin Calcium 80 Mg Tablet) 80 mg PO BEDTIME [facility] Last Admin: 09/16/22 19:31 Dose: 80 mg Documented By: KOBI Carvedilol (Carvedilol 3.125 Mg Tablet) 3.125 mg PO BID [facility]; Protocol Last Admin: 09/17/22 09:18 Dose: 3.125 mg Documented By: STEFANIA Docusate Sodium (Docusate Sodium 100 Mg Capsule) 100 mg PO DAILY PRN PRN Reason: Constipation Enoxaparin Sodium (Enoxaparin Sodium 40 Mg/0.4 Ml Syringe) 40 mg SUBCUT Q24H [facility] Last Admin: 09/17/22 05:36 Dose: 40 mg Documented By: KOBI Furosemide (Furosemide 40 Mg Tablet) 40 mg PO BID@0900,1800 [facility]; Protocol Glucose (Glucose Gel 15 Gm Gel..Gram.) 15 gm PO Q15M PRN; Protocol PRN Reason: per Hypoglycemia Standing Ord. Dextrose (D10) 250 mls @ 750 mls/hr IV Q15M PRN; Protocol PRN Reason: per Hypoglycemia Standing Ord. Vancomycin HCl 1,250 mg/ (Sodium Chloride) 250 mls @ 166.667 mls/hr IV Q24H [facility] Last Infusion: 09/17/22 01:04 Dose: 0 mls/hr Documented By: KOBI Cefepime HCl 2 gm/ Sodium (Chloride) 50 mls @ 100 mls/hr IV Q8H [facility] Last Infusion: 09/17/22 03:43 Dose: 0 mls/hr Documented By: KOBI Insulin Glargine (Insulin Glargine,Hum.Rec.Anlog 100 Unit/Ml 10 Ml Vial) 20 unit SUBCUT DAILY [facility] Last Admin: 09/17/22 09:18 Dose: 20 unit Documented By: STEFANIA Insulin Human Lispro (Insulin Lispro 100 Unit/Ml 3 Ml Vial) 0 unit SUBCUT QIDACHS [facility]; Protocol Last Admin: 09/17/22 07:15 Dose: Not Given Documented By: STEFANIA Non-Admin Reason: No Insulin Coverage Montelukast Sodium (Montelukast Sodium 10 Mg Tablet) 10 mg PO BEDTIME [facility] Last Admin: 09/16/22 19:31 Dose: 10 mg Documented By: KOBI Morphine Sulfate (Morphine Sulfate 4 Mg/Ml Cartridge) 2 mg IVPUSH Q4H PRN; Protocol PRN Reason: Pain, Severe (Pain Scale 7-10) Last Admin: 09/17/22 09:17 Dose: 2 mg Documented By: STEFANIA Nicotine Polacrilex (Nicotine Polacrilex 2 Mg Gum) 2 mg BUCCAL Q2H PRN PRN Reason: Nicotine Cravings Last Admin: 09/16/22 16:34 Dose: 2 mg Documented By: BILL Ondansetron HCl (Ondansetron Hcl 4 Mg/2 Ml Vial) 4 mg IVPUSH Q8H PRN PRN Reason: Nausea and Vomiting Oxycodone HCl (Oxycodone Hcl Immed Release 5 Mg Tablet) 5 mg PO Q6H PRN PRN Reason: Pain, Moderate (Pain Scale 4-6 Last Admin: 09/17/22 07:28 Dose: 5 mg Documented By: STEFANIA Pharmacy Consult (Consult Rx Vancomycin Dosing) 1 each MISCELLANE DAILY PRN PRN Reason: Consult order Pharmacy Consult (Consult Rx Perform Med Rec) 1 each MISCELLANE ONCE PRN PRN Reason: Consult order Sodium Chloride (0.9 % Sodium Chloride Flush 3 Ml Syringe) [facility] Last Admin: 09/17/22 07:28 Dose: 3 ml Documented By: STEFANIA Ticagrelor (Ticagrelor 90 Mg Tablet) 90 mg PO BID [facility] Last Admin: 09/17/22 09:18 Dose: 90 mg Documented By: STEFANIA Labs 09/16/22 09:42 09/17/22 05:40 Labs: Laboratory Results - last 24 hr 09/16/22 09/16/22 09/16/22 09:42 09:42 09:42 MCV 68.7 L MCH 19.5 L MCHC 28.4 L RDW 21.6 H Plt Count 243 MPV Not Reportable Absolute Nucleated RBC 0.000 Nucleated RBC % (auto) 0.0 Anion Gap 12 Estim Creat Clear Calc Cancelled 81.6 Estimated GFR Cancelled > 60 POC Glucose Random Glucose 110 Calcium 8.4 D 09/16/22 09/16/22 09/16/22 11:09 16:27 20:40 MCV MCH MCHC RDW Plt Count MPV Absolute Nucleated RBC Nucleated RBC % (auto) Anion Gap Estim Creat Clear Calc Estimated GFR POC Glucose 111 144 H 141 H Random Glucose Calcium 09/17/22 09/17/22 05:40 07:02 MCV MCH MCHC RDW Plt Count MPV Absolute Nucleated RBC Nucleated RBC % (auto) Anion Gap Estim Creat Clear Calc 85.8 Estimated GFR > 60 POC Glucose 76 Random Glucose Calcium Microbiology Microbiology Results: Microbiology 09/15/22 01:27 Blood Culture - Preliminary Blood - Venous No growth after 48 hours. 09/15/22 01:27 Blood Culture - Preliminary Blood - Venous No growth after 48 hours. Assessment and Plan (1) Coronary artery disease: Status: Acute (2) Diabetic foot infection: Status: Acute Plan This is a 52-year-old female with past medical history of CAD s/p STEMI and recent BARTOLOME to LAD at [facility] 08/2022, chronic osteomyelitis of great toe of the left foot, cellulitis as of left lower extremity, diabetic foot ulcer presents to the hospital with complaints of worsening pain and drainage.? pt admitted 09/08- left AMA 09/10, re-admitted 09/12 and left AMA on 09/13 cellulitis of left lower extremity/infected diabetic foot wound? seen by general surgery s/p bedside debridement/I&D 09/[address] of left foot - likely to need further surgical intervention either extensive debridement vs BKA. seen by cardiology and pt moderate to high risk given recent STEMI. continue IV cefepime, vanco, started 09/15 ID following blood cultures negative chronic osteomyelitis of left great toe no need for IV abx at this time CAD with recent STEMI s/p BARTOLOME to the proximal LAD August 2022/ischemic cardiomyopathy (EF 15%) obtained cath report and DC summary from [facility] 08/31 Not on med rec but previously taking? --> brilinta, aspirin, carvedilol 3.125 mg b.i.d,? atorvastatin 80 mg according to d/c from [facility]. pt noncompliant with meds seen by cardiology: recommend to reload brilinta and resume aspirin, should not stop DAPT; pt at moderate to high risk for postoperative cardiovascular complications if requires surgery/general anesthesia resume BB, statin COPD no acute exacerbation prn breathing treatments Chronic HFrEF not in exacerbation will increase Lasix up to baseline dose 40 bid PAD lower extremity artery duplex on 06/21/2022 showing chronic total occlusion of the proximal mid superficial femoral artery with reconstituted flow in the popliteal artery and likely occlusion of the posterior tibial artery below the knee.? Left leg with chronic total occlusion of the mid to superficial femoral artery with reconstituted flow in the popliteal artery DAPT, statin uncontrolled T2DM with hyperglycemia secondary to noncompliance. Hba1c 10.0. BS 700 on admission POCs controlled on Lantus 20U (on 20 bid at baseline but noncompliant, can up titrate prn) ADA diet, SSI Chronic iron deficiency anemia H/H stable-above transfusion threshold Hyperkalemia resolved. DVT prophylaxis:? Korin attending - dr. phelps HCP - daughter Angely patient requires ongoing inpatient hospitalization for IV abx, repeat imaging and possible further surgical intervention for foot infection Time Spent With Patient Time: Total time managing care of this patient today ____ minutes. Quality Stroke Does the patient have a stroke diagnosis?: No VTE Prior VTE?: No VTE Risk Level:: Medical - moderate - high VTE Device Contraindication: Treatment Not Indicated VTE Drug Contraindication: N/A - Med Ordered
[2022-09-17 11:06] LABS: Glucose, Whole Blood 110 mg/dL (60-115)
[2022-09-17] MEDS: Albuterol Sulfate (0.083%) 2.5 MG/3 ML VIAL.NEB INHALE ×2 (12:52→16:28)
[2022-09-17 15:02] VITALS: BP 122/80; PULSE 99; RESP 18; TEMP 36.9; O2SAT 97
[2022-09-17 16:29] VITALS: PULSE 97; RESP 18; O2SAT 99
[2022-09-17 16:31] LABS: Glucose, Whole Blood 86 mg/dL (60-115)
[2022-09-17] MEDS: Furosemide 40 MG TABLET PO (18:08)
[2022-09-17 20:00] VITALS: BP 132/76; PULSE 94; RESP 16; TEMP 35.9; O2SAT 98
[2022-09-17 20:31] LABS: Glucose, Whole Blood 116 mg/dL (60-115)
[2022-09-17] MEDS: Gabapentin 100 MG CAPSULE PO (21:29)
[2022-09-17] MEDS: Atorvastatin Calcium 80 MG TABLET PO (21:29)
[2022-09-17] MEDS: Montelukast Sodium 10 MG TABLET PO (21:29)
[2022-09-17] MEDS: Acetaminophen 325 MG TABLET 650 MG PO (21:33)
[2022-09-17 22:35] LABS: Vancomycin Random 13.5 mcg/mL (15-20)
[2022-09-17] MEDS: vancomycin HCL 1,500 MG in 0.9 % Sodium Chloride 500 ML 333.33 MG IV (23:20)
[2022-09-18] MEDS: Morphine Sulfate 4 MG/ML CARTRIDGE 2 MG IVPUSH ×7 (01:06→23:36)
[2022-09-18] MEDS: cefEPime HCl 2 GM in 0.9 % Sodium Chloride 50 ML IV ×3 (03:31→18:28)
[2022-09-18 03:40] VITALS: BP 103/69; PULSE 64; RESP 14; TEMP 36.3; O2SAT 100
[2022-09-18 05:29] LABS: Hematocrit 33.1 % (37.0-47.0); Hemoglobin 9.3 g/dl (12.0-16.0); Mean Corpuscular HGB Conc 28.1 g/dl (31.0-35.0); Mean Corpuscular Hemoglobin 19.2 pg (27.0-33.0); Mean Corpuscular Volume 68.2 fL (80.0-98.0); Platelet Count 187 X10*3/uL (160-400); Red Blood Count 4.85 X10*6/uL (4.20-5.50); Red Cell Distribution Width 21.4 % (11.0-16.0)
[2022-09-18 05:46] LABS: Creatinine Clr Calc Pharmacy 79.6; Estimated Glomerular Filt Rate > 60
[2022-09-18] MEDS: Enoxaparin Sodium 40 MG/0.4 ML SYRINGE SUBCUT (06:04)
[2022-09-18 07:29] VITALS: BP 115/70; PULSE 76; RESP 18; TEMP 36.5; O2SAT 99
[2022-09-18 07:50] LABS: Glucose, Whole Blood 103 mg/dL (60-115)
[2022-09-18] MEDS: Aspirin Enteric Coated 81 MG TABLET.DR PO (08:50)
[2022-09-18] MEDS: Docusate Sodium 100 MG CAPSULE PO (08:50)
[2022-09-18] MEDS: 0.9 % Sodium Chloride Flush 3 ML SYRINGE IVFLUSH ×4 (08:50→23:36)
[2022-09-18] MEDS: Gabapentin 100 MG CAPSULE PO (08:51)
[2022-09-18] MEDS: Ticagrelor 90 MG TABLET PO ×2 (08:51→19:32)
[2022-09-18] MEDS: carvediloL 3.125 MG TABLET PO ×2 (08:51→19:33)
[2022-09-18] MEDS: Insulin Glargine,Hum.rec.anlog 100 UNIT/ML 10 ML VIAL 20 UNIT SUBCUT (08:51)
[2022-09-18] MEDS: Furosemide 40 MG TABLET PO ×2 (08:51→18:28)
[2022-09-18 11:32] LABS: Glucose, Whole Blood 112 mg/dL (60-115)
[2022-09-18] MEDS: Albuterol Sulfate (0.083%) 2.5 MG/3 ML VIAL.NEB INHALE (12:05)
[2022-09-18 12:06] VITALS: PULSE 76; RESP 18; O2SAT 99
[2022-09-18] MEDS: oxyCODONE HCl Immed Release 5 MG TABLET PO ×2 (12:10→18:28)
--- NOTE | 2022-09-18 13:08 | P.PNIM_ITS ---
Subjective Subjective Date of Service: 09/18/22 Interval History: seen and examined this morning follow up for nonhealing foot wound no overnight events still reporting pain left foot Review of Systems Review of Systems: Yes all other systems are reviewed and are negative Constitutional Constitutional: Denies chills and Denies fever(s) Cardiovascular Cardiovascular: Denies chest pain, Denies palpitations and Denies dyspnea Respiratory Respiratory: Denies cough and Denies dyspnea Gastrointestinal Gastrointestinal: Denies abdominal pain Endocrine Endocrine: Denies palpitations Physical Exam Vital Signs: Vital Signs: Last Vital Signs Temp 97.7 F 09/18/22 07:29 Pulse 76 09/18/22 12:06 Resp 18 09/18/22 12:06 BP 115/70 09/18/22 07:29 Pulse Ox 99 09/18/22 07:29 O2 Del Method Room Air 09/18/22 07:29 BMI result Body Mass Index 31.5 Const: General: alert and awake Nutritional Appearance: average body habitus Resp: Effort & Inspection: normal respiratory effort and able to speak in complete sentences Cardio: Rate: regular rate Heart sounds: S1 normal heart sound present and S2 normal heart sound present Extrem: Other: left foot wrapped in c/d/i dressing; b/l leg edema L>R Objective Data Active Medications Acetaminophen (Acetaminophen 325 Mg Tablet) 650 mg PO Q6H PRN PRN Reason: Pain, Mild (Pain Scale 1-3) Last Admin: 09/17/22 21:33 Dose: 650 mg Documented By: CHERY Albuterol Sulfate (Albuterol Sulfate (0.083%) 2.5 Mg/3 Ml Vial.Neb) 2.5 mg INHALE Q6H PRN PRN Reason: Wheezing Last Admin: 09/18/22 12:05 Dose: 2.5 mg Documented By: SANIYA Aspirin (Aspirin Enteric Coated 81 Mg Tablet.) 81 mg PO DAILY [facility] Last Admin: 09/18/22 08:50 Dose: 81 mg Documented By: NEVIN Atorvastatin Calcium (Atorvastatin Calcium 80 Mg Tablet) 80 mg PO BEDTIME [facility] Last Admin: 09/17/22 21:29 Dose: 80 mg Documented By: CHERY Carvedilol (Carvedilol 3.125 Mg Tablet) 3.125 mg PO BID [facility]; Protocol Last Admin: 09/18/22 08:51 Dose: 3.125 mg Documented By: NEVIN Docusate Sodium (Docusate Sodium 100 Mg Capsule) 100 mg PO DAILY [facility] Last Admin: 09/18/22 08:50 Dose: 100 mg Documented By: NEVIN Enoxaparin Sodium (Enoxaparin Sodium 40 Mg/0.4 Ml Syringe) 40 mg SUBCUT Q24H [facility] Last Admin: 09/18/22 06:04 Dose: 40 mg Documented By: KAYLYN Furosemide (Furosemide 40 Mg Tablet) 40 mg PO BID@0900,1800 [facility]; Protocol Last Admin: 09/18/22 08:51 Dose: 40 mg Documented By: NEVIN Gabapentin (Gabapentin 100 Mg Capsule) 200 mg PO BID [facility] Glucose (Glucose Gel 15 Gm Gel..Gram.) 15 gm PO Q15M PRN; Protocol PRN Reason: per Hypoglycemia Standing Ord. Dextrose (D10) 250 mls @ 750 mls/hr IV Q15M PRN; Protocol PRN Reason: per Hypoglycemia Standing Ord. Cefepime HCl 2 gm/ Sodium (Chloride) 50 mls @ 100 mls/hr IV Q8H [facility] Last Infusion: 09/18/22 11:38 Dose: 0 mls/hr Documented By: NEVIN Vancomycin HCl 1,500 mg/ (Sodium Chloride) 500 mls @ 333.333 mls/hr IV Q24H [facility] Last Infusion: 09/18/22 00:53 Dose: 0 mls/hr Documented By: KAYLYN Insulin Glargine (Insulin Glargine,Hum.Rec.Anlog 100 Unit/Ml 10 Ml Vial) 20 unit SUBCUT DAILY [facility] Last Admin: 09/18/22 08:51 Dose: 20 unit Documented By: NEVIN Insulin Human Lispro (Insulin Lispro 100 Unit/Ml 3 Ml Vial) 0 unit SUBCUT QIDACHS [facility]; Protocol Last Admin: 09/18/22 13:01 Dose: Not Given Documented By: NEVIN Non-Admin Reason: No Insulin Coverage Montelukast Sodium (Montelukast Sodium 10 Mg Tablet) 10 mg PO BEDTIME [facility] Last Admin: 09/17/22 21:29 Dose: 10 mg Documented By: CHERY Morphine Sulfate (Morphine Sulfate 4 Mg/Ml Cartridge) 2 mg IVPUSH Q3H PRN; Protocol PRN Reason: Pain, Severe (Pain Scale 7-10) Last Admin: 09/18/22 10:13 Dose: 2 mg Documented By: NEVIN Nicotine Polacrilex (Nicotine Polacrilex 2 Mg Gum) 2 mg BUCCAL Q2H PRN PRN Reason: Nicotine Cravings Last Admin: 09/16/22 16:34 Dose: 2 mg Documented By: BILL Ondansetron HCl (Ondansetron Hcl 4 Mg/2 Ml Vial) 4 mg IVPUSH Q8H PRN PRN Reason: Nausea and Vomiting Oxycodone HCl (Oxycodone Hcl Immed Release 5 Mg Tablet) 5 mg PO Q6H PRN PRN Reason: Pain, Moderate (Pain Scale 4-6 Last Admin: 09/18/22 12:10 Dose: 5 mg Documented By: NEVIN Pharmacy Consult (Consult Rx Vancomycin Dosing) 1 each MISCELLANE DAILY PRN PRN Reason: Consult order Pharmacy Consult (Consult Rx Perform Med Rec) 1 each MISCELLANE ONCE PRN PRN Reason: Consult order Polyethylene Glycol (Polyethylene Glycol 3350 17 Gm Powd.Pack) 17 gm PO DAILY PRN PRN Reason: Constipation Sodium Chloride (0.9 % Sodium Chloride Flush 3 Ml Syringe) 3 ml IVFLUSH [facility] Last Admin: 09/18/22 08:50 Dose: 3 ml Documented By: NEVIN Ticagrelor (Ticagrelor 90 Mg Tablet) 90 mg PO BID [facility] Last Admin: 09/18/22 08:51 Dose: 90 mg Documented By: NEVIN Labs 09/18/22 04:59 09/18/22 04:59 Labs: Laboratory Results - last 24 hr 09/17/22 09/17/22 09/17/22 16:26 20:27 22:05 MCV MCH MCHC RDW Plt Count MPV Absolute Nucleated RBC Nucleated RBC % (auto) Estim Creat Clear Calc Estimated GFR POC Glucose 86 116 H Random Vancomycin 13.5 L 09/18/22 09/18/22 09/18/22 04:59 04:59 07:33 MCV 68.2 L MCH 19.2 L MCHC 28.1 L RDW 21.4 H Plt Count 187 MPV TNP Absolute Nucleated RBC 0.000 Nucleated RBC % (auto) 0.0 Estim Creat Clear Calc 79.6 Estimated GFR > 60 POC Glucose 103 Random Vancomycin 09/18/22 11:20 MCV MCH MCHC RDW Plt Count MPV Absolute Nucleated RBC Nucleated RBC % (auto) Estim Creat Clear Calc Estimated GFR POC Glucose 112 Random Vancomycin Assessment and Plan (1) Coronary artery disease: Status: Acute (2) Diabetic foot infection: Status: Acute Plan This is a 52-year-old female with past medical history of CAD s/p STEMI and recent BARTOLOME to LAD at [facility] 08/2022, chronic osteomyelitis of great toe of the left foot, cellulitis as of left lower extremity, diabetic foot ulcer presents to the hospital with complaints of worsening pain and drainage.? pt admitted 09/08- left AMA 09/10, re-admitted 09/12 and left AMA on 09/13 cellulitis of left lower extremity/infected diabetic foot wound? seen by general surgery s/p bedside debridement/I&D 09/15 CT of left foot - no abscess, no osteo; likely to need further surgical intervention either extensive debridement vs BKA. seen by cardiology and pt moderate to high risk given recent STEMI. Can NOT interrupt DAPT. continue IV cefepime, vanco, started 09/15 ID following surgery following blood cultures negative continue pain management - was sedated on original dose of pain meds, dose of gabapentin, morphine decreased chronic osteomyelitis of left great toe no need for IV abx at this time CAD with recent STEMI s/p BARTOLOME to the proximal LAD August 2022/ischemic cardiomyopathy (EF 15%) obtained cath report and DC summary from [facility] 08/31 Not on med rec but previously taking? --> brilinta, aspirin, carvedilol 3.125 mg b.i.d,? atorvastatin 80 mg according to d/c from [facility]. pt noncompliant with meds seen by cardiology: recommend to reload brilinta and resume aspirin, should not stop DAPT; pt at moderate to high risk for postoperative cardiovascular complications if requires surgery/general anesthesia continued BB, statin COPD no acute exacerbation prn breathing treatments Chronic HFrEF not in exacerbation resume baseline dose lasix 40 bid PAD lower extremity artery duplex on 06/21/2022 showing chronic total occlusion of the proximal mid superficial femoral artery with reconstituted flow in the pop liteal artery and likely occlusion of the posterior tibial artery below the knee.? Left leg with chronic total occlusion of the mid to superficial femoral artery with reconstituted flow in the popliteal artery DAPT, statin uncontrolled T2DM with hyperglycemia secondary to noncompliance. Hba1c 10.0. BS 700 on admission POCs controlled on Lantus 20U (on 20 bid at baseline but noncompliant, can up titrate prn) ADA diet, SSI Chronic iron deficiency anemia H/H stable-above transfusion threshold Hyperkalemia resolved. DVT prophylaxis:? Lovenox attending - dr. Helm HCP - daughter Angely patient requires ongoing inpatient hospitalization for IV abx, repeat imaging and possible further surgical intervention for foot infection Time Spent With Patient Time: Total time managing care of this patient today ____ minutes. Quality Stroke Does the patient have a stroke diagnosis?: No VTE Prior VTE?: No VTE Risk Level:: Medical - moderate - high VTE Device Contraindication: Treatment Not Indicated VTE Drug Contraindication: N/A - Med Ordered
[2022-09-18 15:31] VITALS: BP 103/59; PULSE 82; RESP 18; TEMP 37; O2SAT 98
[2022-09-18 15:31] LABS: Glucose, Whole Blood 122 mg/dL (60-115)
[2022-09-18] MEDS: Montelukast Sodium 10 MG TABLET PO (19:31)
[2022-09-18] MEDS: Atorvastatin Calcium 80 MG TABLET PO (19:32)
[2022-09-18] MEDS: Gabapentin 100 MG CAPSULE 200 MG PO (19:32)
[2022-09-18] MEDS: Insulin Lispro 100 UNIT/ML 3 ML VIAL SUBCUT (19:46)
[2022-09-18 19:48] VITALS: BP 127/68; PULSE 68; RESP 16; TEMP 36.4; O2SAT 96
[2022-09-18 20:17] LABS: Glucose, Whole Blood 258 mg/dL (60-115)
[2022-09-18 22:31] LABS: Vancomycin Random 16.6 mcg/mL (15-20)
[2022-09-18] MEDS: vancomycin HCL 1,500 MG in 0.9 % Sodium Chloride 500 ML 200 MG IV (23:36)
[2022-09-19] MEDS: Morphine Sulfate 4 MG/ML CARTRIDGE 2 MG IVPUSH ×6 (03:26→21:32)
[2022-09-19] MEDS: cefEPime HCl 2 GM in 0.9 % Sodium Chloride 50 ML IV ×3 (03:27→18:36)
[2022-09-19 03:50] VITALS: BP 140/72; PULSE 68; RESP 16; TEMP 36.5; O2SAT 95
[2022-09-19] MEDS: Enoxaparin Sodium 40 MG/0.4 ML SYRINGE SUBCUT (06:14)
[2022-09-19 07:38] VITALS: BP 124/71; PULSE 85; RESP 18; TEMP 36.1; O2SAT 99
[2022-09-19 07:44] LABS: Glucose, Whole Blood 132 mg/dL (60-115)
[2022-09-19] MEDS: Insulin Glargine,Hum.rec.anlog 100 UNIT/ML 10 ML VIAL 20 UNIT SUBCUT (08:35)
[2022-09-19] MEDS: Aspirin Enteric Coated 81 MG TABLET.DR PO (08:36)
[2022-09-19] MEDS: Docusate Sodium 100 MG CAPSULE PO (08:36)
[2022-09-19] MEDS: Gabapentin 100 MG CAPSULE 200 MG PO ×2 (08:36→21:33)
[2022-09-19] MEDS: Furosemide 40 MG TABLET PO ×2 (08:36→17:21)
[2022-09-19] MEDS: carvediloL 3.125 MG TABLET PO ×2 (08:37→21:34)
[2022-09-19] MEDS: Ticagrelor 90 MG TABLET PO ×2 (08:37→21:34)
[2022-09-19] MEDS: 0.9 % Sodium Chloride Flush 3 ML SYRINGE IVFLUSH ×3 (08:39→21:34)
[2022-09-19] MEDS: oxyCODONE HCl Immed Release 5 MG TABLET PO ×2 (08:42→15:30)
[2022-09-19 09:35] LABS: Creatinine Clr Calc Pharmacy 75.2; Estimated Glomerular Filt Rate > 60
--- NOTE | 2022-09-19 11:42 | P.PNIM_ITS ---
Subjective Subjective Date of Service: 09/19/22 Interval History: seen and examined this morning follow up for nonhealing foot wound no overnight events still reporting pain left foot Review of Systems Review of Systems: Yes all other systems are reviewed and are negative Constitutional Constitutional: Denies chills and Denies fever(s) Cardiovascular Cardiovascular: Denies chest pain, Denies palpitations and Denies dyspnea Respiratory Respiratory: Denies cough and Denies dyspnea Gastrointestinal Gastrointestinal: Denies abdominal pain Endocrine Endocrine: Denies palpitations Physical Exam Vital Signs: Vital Signs: Last Vital Signs Temp 97.0 F 09/19/22 07:38 Pulse 85 09/19/22 07:38 Resp 18 09/19/22 07:38 BP 124/71 09/19/22 07:38 Pulse Ox 99 09/19/22 07:38 O2 Del Method Room Air 09/19/22 07:38 BMI result Body Mass Index 31.5 Appearing in no acute distress lung sounds are clear to auscultation heart regular rate rhythm, clear S1, S2 positive bowel sounds, abdomen is soft, nontender neuro patient is alert x3, no focal deficits Lfte foot heal Objective Data Active Medications Acetaminophen (Acetaminophen 325 Mg Tablet) 650 mg PO Q6H PRN PRN Reason: Pain, Mild (Pain Scale 1-3) Last Admin: 09/17/22 21:33 Dose: 650 mg Documented By: CHERY Albuterol Sulfate (Albuterol Sulfate (0.083%) 2.5 Mg/3 Ml Vial.[facility]) 2.5 mg INHALE Q6H PRN PRN Reason: Wheezing Last Admin: 09/18/22 12:05 Dose: 2.5 mg Documented By: SANIYA Aspirin (Aspirin Enteric Coated 81 Mg Tablet.) 81 mg PO DAILY [facility] Last Admin: 09/19/22 08:36 Dose: 81 mg Documented By: WOODY Atorvastatin Calcium (Atorvastatin Calcium 80 Mg Tablet) 80 mg PO BEDTIME [facility] Last Admin: 09/18/22 19:32 Dose: 80 mg Documented By: CHERY Carvedilol (Carvedilol 3.125 Mg Tablet) 3.125 mg PO BID [facility]; Protocol Last Admin: 09/19/22 08:37 Dose: 3.125 mg Documented By: WOODY Docusate Sodium (Docusate Sodium 100 Mg Capsule) 100 mg PO DAILY [facility] Last Admin: 09/19/22 08:36 Dose: 100 mg Documented By: WOODY Enoxaparin Sodium (Enoxaparin Sodium 40 Mg/0.4 Ml Syringe) 40 mg SUBCUT Q24H [facility] Last Admin: 09/19/22 06:14 Dose: 40 mg Documented By: ELLIOTT Furosemide (Furosemide 40 Mg Tablet) 40 mg PO BID@0900,1800 [facility]; Protocol Last Admin: 09/19/22 08:36 Dose: 40 mg Documented By: WOODY Gabapentin (Gabapentin 100 Mg Capsule) 200 mg PO BID [facility] Last Admin: 09/19/22 08:36 Dose: 200 mg Documented By: WOODY Glucose (Glucose Gel 15 Gm Gel..Gram.) 15 gm PO Q15M PRN; Protocol PRN Reason: per Hypoglycemia Standing Ord. Dextrose (D10) 250 mls @ 750 mls/hr IV Q15M PRN; Protocol PRN Reason: per Hypoglycemia Standing Ord. Cefepime HCl 2 gm/ Sodium (Chloride) 50 mls @ 100 mls/hr IV Q8H [facility] Last Infusion: 09/19/22 03:57 Dose: 0 mls/hr Documented By: ELLIOTT Vancomycin HCl 1,500 mg/ (Sodium Chloride) 500 mls @ 333.333 mls/hr IV Q24H [facility] Last Infusion: 09/19/22 02:10 Dose: 0 mls/hr Documented By: ELLIOTT Insulin Glargine (Insulin Glargine,Hum.Rec.Anlog 100 Unit/Ml 10 Ml Vial) 20 unit SUBCUT DAILY [facility] Last Admin: 09/19/22 08:35 Dose: 20 unit Documented By: WOODY Insulin Human Lispro (Insulin Lispro 100 Unit/Ml 3 Ml Vial) 0 unit SUBCUT QIDACHS [facility]; Protocol Last Admin: 09/19/22 08:31 Dose: Not Given Documented By: WOODY Non-Admin Reason: No Insulin Coverage Montelukast Sodium (Montelukast Sodium 10 Mg Tablet) 10 mg PO BEDTIME [facility] Last Admin: 09/18/22 19:31 Dose: 10 mg Documented By: CHERY Morphine Sulfate (Morphine Sulfate 4 Mg/Ml Cartridge) 2 mg IVPUSH Q3H PRN; Protocol PRN Reason: Pain, Severe (Pain Scale 7-10) Last Admin: 09/19/22 07:34 Dose: 2 mg Documented By: WOODY Nicotine Polacrilex (Nicotine Polacrilex 2 Mg Gum) 2 mg BUCCAL Q2H PRN PRN Reason: Nicotine Cravings Last Admin: 09/16/22 16:34 Dose: 2 mg Documented By: BILL Ondansetron HCl (Ondansetron Hcl 4 Mg/2 Ml Vial) 4 mg IVPUSH Q8H PRN PRN Reason: Nausea and Vomiting Oxycodone HCl (Oxycodone Hcl Immed Release 5 Mg Tablet) 5 mg PO Q6H PRN PRN Reason: Pain, Moderate (Pain Scale 4-6 Last Admin: 09/19/22 08:42 Dose: 5 mg Documented By: WOODY Pharmacy Consult (Consult Rx Vancomycin Dosing) 1 each MISCELLANE DAILY PRN PRN Reason: Consult order Pharmacy Consult (Consult Rx Perform Med Rec) 1 each MISCELLANE ONCE PRN PRN Reason: Consult order Polyethylene Glycol (Polyethylene Glycol 3350 17 Gm Powd.Pack) 17 gm PO DAILY PRN PRN Reason: Constipation Sodium Chloride (0.9 % Sodium Chloride Flush 3 Ml Syringe) 3 ml IVFLUSH QSHIFT [facility] Last Admin: 09/19/22 08:39 Dose: 3 ml Documented By: WOODY Ticagrelor (Ticagrelor 90 Mg Tablet) 90 mg PO BID [facility] Last Admin: 09/19/22 08:37 Dose: 90 mg Documented By: WOODY Labs 09/18/22 04:59 09/19/22 08:50 Labs: Laboratory Results - last 24 hr 09/18/22 09/18/22 09/18/22 15:27 19:43 22:08 Estim Creat Clear Calc Estimated GFR POC Glucose 122 H 258 H Random Vancomycin 16.6 09/19/22 09/19/22 07:37 08:50 Estim Creat Clear Calc 75.2 Estimated GFR > 60 POC Glucose 132 H Random Vancomycin Assessment and Plan (1) Coronary artery disease: Status: Acute (2) Diabetic foot infection: Status: Acute Plan This is a 52-year-old female with past medical history of CAD s/p STEMI and [place] [facility] [place], chronic osteomyelitis of great toe of the left foot, cellulitis as of left lower extremity, diabetic foot ulcer presents to the hospital with complaints of worsening pain and drainage.? pt admitted 09/08- left AMA 09/10, re-admitted 09/12 and left AMA on 09/13 cellulitis of left lower extremity/infected diabetic foot wound? seen by general surgery s/p bedside debridement/I&D 09/15, 06/21 CT of left foot - no abscess, no osteo. seen by cardiology and pt moderate to high risk given recent STEMI. Can NOT interrupt DAPT. continue IV cefepime, vanco, started 09/15 ID following surgery following blood cultures negative continue pain management - was sedated on original dose of pain meds, dose of gabapentin, morphine decreased plan is for BKA likely chronic osteomyelitis of left great toe vanco, continue CAD with recent STEMI s/p BARTOLOME to the proximal LAD August 2022/ischemic cardiomyopathy (EF 15%) obtained cath report and DC summary from [facility] 08/31 Not on med rec but previously taking? --> brilinta, aspirin, carvedilol 3.125 mg b.i.d,? atorvastatin 80 mg according to d/c from [facility]. pt noncompliant with meds seen by cardiology: recommend to reload brilinta and resume aspirin, should not stop DAPT; pt at moderate to high risk for postoperative cardiovascular complications if requires surgery/general anesthesia continued BB, statin COPD no acute exacerbation prn breathing treatments Chronic HFrEF not in exacerbation resume baseline dose lasix 40 bid PAD lower extremity artery duplex on 06/21/2022 showing chronic total occlusion of the proximal mid superficial femoral artery with reconstituted flow in the popliteal artery and likely occlusion of the posterior tibial artery below the knee.? Left leg with chronic total occlusion of the mid to superficial femoral artery with reconstituted flow in the popliteal artery DAPT, statin uncontrolled T2DM with hyperglycemia secondary to noncompliance. Hba1c 10.0. BS 700 on admission POCs controlled on Lantus 20U (on 20 bid at baseline but noncompliant, can up titrate prn) ADA diet, SSI Chronic iron deficiency anemia H/H stable-above transfusion threshold Hyperkalemia resolved. DVT prophylaxis:? Lovenox attending - dr. Hernandez HCP - daughter Angely patient requires ongoing inpatient hospitalization for IV abx, repeat imaging and possible further surgical intervention for foot infection Time Spent With Patient Time: Total time managing care of this patient today ____ minutes. Quality Stroke Does the patient have a stroke diagnosis?: No VTE Prior VTE?: No VTE Risk Level:: Medical - moderate - high VTE Device Contraindication: Treatment Not Indicated VTE Drug Contraindication: N/A - Med Ordered
--- NOTE | 2022-09-19 11:54 | MHC.CLN ---
Addendum entered by Yazmin Zeng, PHYLICIA 09/19/22 11:57: PO INTAKE APPEARS VARIABLE, 25-100%, WITH MOST MEALS >50%. NO ADDITIONAL NUTRITION INTERVENTIONS AT THIS TIME. Original Note: NUTRITION CONSULT FOR SKIN INTEGRITY. PATIENT WITH DIABETIC ULCERS RIGHT FOOT AND LEFT HEEL. ADDED DIABETIC 1800 KCALS TO DIET ORDER. DIET=DIABETIC 1800 KCALS, 2 G SODIUM.
[2022-09-19 12:08] LABS: Glucose, Whole Blood 167 mg/dL (60-115)
--- NOTE | 2022-09-19 12:21 | PM.PNGS ---
Subjective Subjective Date of Service: 09/19/22 Interval history: Patient reports pain in the left foot, discharge noted on her bed during the night. Constantly asking to go home. Physical Exam Vital Signs: Vital Signs: Last Vital Signs Temp 97.0 F 09/19/22 07:38 Pulse 85 09/19/22 07:38 Resp 18 09/19/22 07:38 BP 124/71 09/19/22 07:38 Pulse Ox 99 09/19/22 07:38 O2 Del Method Room Air 09/19/22 07:38 BMI result Body Mass Index 31.5 Const: General: anxious and poor hygiene Nutritional Appearance: well nourished Skin: Other: Warm and dry Extrem: Other: Left foot dressing changed. Necrotic skin and subcutaneous tissue debrided. Unable to completely debride ulcer due to patient's pain. Additional necrotic tissue noted at base extending from medial to lateral extending over the plantar surface. Wet to dry dressings applied. Area of debrided tissue measures approximately 3 x 3 cm extending 2 cm deep. Decreased erythema noted in the foot however edema still present over the calf. Objective Data Active Medications Acetaminophen (Acetaminophen 325 Mg Tablet) 650 mg PO Q6H PRN PRN Reason: Pain, Mild (Pain Scale 1-3) Last Admin: 09/17/22 21:33 Dose: 650 mg Documented By: CHERY Albuterol Sulfate (Albuterol Sulfate (0.083%) 2.5 Mg/3 Ml Vial.[facility]) 2.5 mg INHALE Q6H PRN PRN Reason: Wheezing Last Admin: 09/18/22 12:05 Dose: 2.5 mg Documented By: SANIYA Aspirin (Aspirin Enteric Coated 81 Mg Tablet.) 81 mg PO DAILY [facility] Last Admin: 09/19/22 08:36 Dose: 81 mg Documented By: WOODY Atorvastatin Calcium (Atorvastatin Calcium 80 Mg Tablet) 80 mg PO BEDTIME [facility] Last Admin: 09/18/22 19:32 Dose: 80 mg Documented By: CHERY Carvedilol (Carvedilol 3.125 Mg Tablet) 3.125 mg PO BID [facility]; Protocol Last Admin: 09/19/22 08:37 Dose: 3.125 mg Documented By: WOODY Docusate Sodium (Docusate Sodium 100 Mg Capsule) 100 mg PO DAILY [facility] Last Admin: 09/19/22 08:36 Dose: 100 mg Documented By: WOODY Enoxaparin Sodium (Enoxaparin Sodium 40 Mg/0.4 Ml Syringe) 40 mg SUBCUT Q24H [facility] Last Admin: 09/19/22 06:14 Dose: 40 mg Documented By: ELLIOTT Furosemide (Furosemide 40 Mg Tablet) 40 mg PO BID@0900,1800 [facility]; Protocol Last Admin: 09/19/22 08:36 Dose: 40 mg Documented By: WOODY Gabapentin (Gabapentin 100 Mg Capsule) 200 mg PO BID [facility] Last Admin: 09/19/22 08:36 Dose: 200 mg Documented By: WOODY Glucose (Glucose Gel 15 Gm Gel..Gram.) 15 gm PO Q15M PRN; Protocol PRN Reason: per Hypoglycemia Standing Ord. Dextrose (D10) 250 mls @ 750 mls/hr IV Q15M PRN; Protocol PRN Reason: per Hypoglycemia Standing Ord. Cefepime HCl 2 gm/ Sodium (Chloride) 50 mls @ 100 mls/hr IV Q8H [facility] Last Infusion: 09/19/22 03:57 Dose: 0 mls/hr Documented By: ELLIOTT Vancomycin HCl 1,500 mg/ (Sodium Chloride) 500 mls @ 333.333 mls/hr IV Q24H [facility] Last Infusion: 09/19/22 02:10 Dose: 0 mls/hr Documented By: ELLIOTT Insulin Glargine (Insulin Glargine,Hum.Rec.Anlog 100 Unit/Ml 10 Ml Vial) 20 unit SUBCUT DAILY [facility] Last Admin: 09/19/22 08:35 Dose: 20 unit Documented By: WOODY Insulin Human Lispro (Insulin Lispro 100 Unit/Ml 3 Ml Vial) 0 unit SUBCUT QIDACHS [facility]; Protocol Last Admin: 09/19/22 08:31 Dose: Not Given Documented By: WOODY Non-Admin Reason: No Insulin Coverage Montelukast Sodium (Montelukast Sodium 10 Mg Tablet) 10 mg PO BEDTIME [facility] Last Admin: 09/18/22 19:31 Dose: 10 mg Documented By: CHERY Morphine Sulfate (Morphine Sulfate 4 Mg/Ml Cartridge) 2 mg IVPUSH Q3H PRN; Protocol PRN Reason: Pain, Severe (Pain Scale 7-10) Last Admin: 09/19/22 11:50 Dose: 2 mg Documented By: WOODY Nicotine Polacrilex (Nicotine Polacrilex 2 Mg Gum) 2 mg BUCCAL Q2H PRN PRN Reason: Nicotine Cravings Last Admin: 09/16/22 16:34 Dose: 2 mg Documented By: BILL Ondansetron HCl (Ondansetron Hcl 4 Mg/2 Ml Vial) 4 mg IVPUSH Q8H PRN PRN Reason: Nausea and Vomiting Oxycodone HCl (Oxycodone Hcl Immed Release 5 Mg Tablet) 5 mg PO Q6H PRN PRN Reason: Pain, Moderate (Pain Scale 4-6 Last Admin: 09/19/22 08:42 Dose: 5 mg Documented By: WOODY Pharmacy Consult (Consult Rx Vancomycin Dosing) 1 each MISCELLANE DAILY PRN PRN Reason: Consult order Pharmacy Consult (Consult Rx Perform Med Rec) 1 each MISCELLANE ONCE PRN PRN Reason: Consult order Polyethylene Glycol (Polyethylene Glycol 3350 17 Gm Powd.Pack) 17 gm PO DAILY PRN PRN Reason: Constipation Sodium Chloride (0.9 % Sodium Chloride Flush 3 Ml Syringe) 3 ml IVFLUSH QSHIFT [facility] Last Admin: 09/19/22 08:39 Dose: 3 ml Documented By: WOODY Ticagrelor (Ticagrelor 90 Mg Tablet) 90 mg PO BID [facility] Last Admin: 09/19/22 08:37 Dose: 90 mg Documented By: WOODY Labs 09/18/22 04:59 09/19/22 08:50 Labs: Laboratory Results - last 24 hr 09/18/22 09/18/22 09/18/22 15:27 19:43 22:08 Estim Creat Clear Calc Estimated GFR POC Glucose 122 H 258 H Random Vancomycin 16.6 09/19/22 09/19/22 09/19/22 07:37 08:50 12:03 Estim Creat Clear Calc 75.2 Estimated GFR > 60 POC Glucose 132 H 167 H Random Vancomycin Procedures Date of Service Date of Service: 09/19/22 Progress Note: A&P Assessment and plan (1) Diabetic foot infection: Status: Acute Plan 52-year-old female patient with necrotic changes which have extended across the with purulence discharge. CT reviewed, no undrained abscess however there is air consistent with the previous debridement. Additional debridement performed today with continued necrotic tissue at the heel. This is a very difficult area to heal and BKA may ultimately be required. Will increase dressing changes to the t.i.d.. Time Spent With Patient Time: Total time managing care of this patient today ____ minutes. Quality Stroke Does the patient have a stroke diagnosis?: No VTE Prior VTE?: No VTE Risk Level:: Medical - moderate - high VTE Device Contraindication: Treatment Not Indicated VTE Drug Contraindication: N/A - Med Ordered
--- NOTE | 2022-09-19 12:47 | MHC.CM.PN ---
EMR REVIEWED AND PER MD ROUNDS, PT NOT MEDICALLY CLEARED FOR DC (CONTINUED DEBRIDEMENT OF DFU, POSSIBLE SURGICAL INTERVENTION (BKA)) PT CONTINUES TO ASK TO GO HOME. CM WILL CONTINUE TO FOLLOW FOR PLAN.
[2022-09-19] MEDS: Insulin Lispro 100 UNIT/ML 3 ML VIAL SUBCUT (13:21)
[2022-09-19 15:52] VITALS: BP 122/75; PULSE 87; RESP 16; TEMP 36.9; O2SAT 97
[2022-09-19 16:59] LABS: Glucose, Whole Blood 64 mg/dL (60-115)
[2022-09-19 19:33] VITALS: BP 119/66; PULSE 93; RESP 17; TEMP 36.4; O2SAT 96
[2022-09-19 21:08] LABS: Glucose, Whole Blood 126 mg/dL (60-115)
[2022-09-19] MEDS: Atorvastatin Calcium 80 MG TABLET PO (21:33)
[2022-09-19] MEDS: Montelukast Sodium 10 MG TABLET PO (21:33)
[2022-09-19 22:20] LABS: Vancomycin Random 21.2 mcg/mL (15-20)
--- NOTE | 2022-09-19 22:26 | HE.PHANOTE ---
RE VANCOMYCIN TROUGH WAS SUPRATHERAPUETIC AT 21.2. WILL HOLD THE EVENING DOSE AND RESTART TOMORROW AM AT 1250MG Q24H. THIS WILL ALLOW THE PATIENT 24 HOURS WITHOUT DRUG AND ENOUGH TIME TO CLEAR IT. NEXT RANDOM LEVEL WILL BE 09/21 @0900 AMINAH
[2022-09-20] VITALS (10 sets, daily range): BP systolic 97–115; BP diastolic 57–68; PULSE 72–90; RESP 16–20; TEMP 36.4–37; O2SAT 94–100
[2022-09-20] MEDS: Morphine Sulfate 4 MG/ML CARTRIDGE 2 MG IVPUSH ×5 (01:08→21:17)
[2022-09-20] MEDS: cefEPime HCl 2 GM in 0.9 % Sodium Chloride 50 ML IV ×3 (02:56→19:59)
[2022-09-20 06:21] LABS: Creatinine Clr Calc Pharmacy 82.6; Estimated Glomerular Filt Rate > 60
--- NOTE | 2022-09-20 07:09 | HE.PHANOTE ---
Vancomycin Dosing Renal function is stable. Continue current regimen, expected AUC 489 with a trough of 14.5. Level scheduled for 09/21 @ 0900. Shantanu HutchinsD
[2022-09-20 07:29] LABS: Glucose, Whole Blood 102 mg/dL (60-115)
--- NOTE | 2022-09-20 07:37 | PM.PNGS ---
Subjective Subjective Date of Service: 09/20/22 Interval history: Patient reports increased pain in the left foot, ?feels like my foot exploded? and was told she was having surgery today. Physical Exam Vital Signs: Vital Signs: Last Vital Signs Temp 97.6 F 09/20/22 03:30 Pulse 81 09/20/22 03:30 Resp 18 09/20/22 03:30 BP 102/57 L 09/20/22 03:30 Pulse Ox 95 09/20/22 03:30 O2 Del Method Room Air 09/20/22 03:30 BMI result Body Mass Index 31.5 Const: General: anxious Nutritional Appearance: well nourished Orientation/consciousness: patient oriented x3 Resp: Effort & Inspection: normal respiratory effort Skin: Other: Erythema left leg Neuro: General: patient oriented x3 Extrem: Other: Foul-smelling discharge from heel ulcer, erythema extending up leg with pitting edema Objective Data Active Medications Acetaminophen (Acetaminophen 325 Mg Tablet) 650 mg PO Q6H PRN PRN Reason: Pain, Mild (Pain Scale 1-3) Last Admin: 09/17/22 21:33 Dose: 650 mg Documented By: CHERY Albuterol Sulfate (Albuterol Sulfate (0.083%) 2.5 Mg/3 Ml Vial.[facility]) 2.5 mg INHALE Q6H PRN PRN Reason: Wheezing Last Admin: 09/18/22 12:05 Dose: 2.5 mg Documented By: SANIYA Aspirin (Aspirin Enteric Coated 81 Mg Tablet.) 81 mg PO DAILY COUNTS INCLUDE 234 BEDS AT THE [facility] Last Admin: 09/19/22 08:36 Dose: 81 mg Documented By: WOODY Atorvastatin Calcium (Atorvastatin Calcium 80 Mg Tablet) 80 mg PO BEDTIME COUNTS INCLUDE 234 BEDS AT THE [facility] Last Admin: 09/19/22 21:33 Dose: 80 mg Documented By: ADRIÁN Carvedilol (Carvedilol 3.125 Mg Tablet) 3.125 mg PO BID COUNTS INCLUDE 234 BEDS AT THE [facility]; Protocol Last Admin: 09/19/22 21:34 Dose: 3.125 mg Documented By: ADRIÁN Docusate Sodium (Docusate Sodium 100 Mg Capsule) 100 mg PO DAILY COUNTS INCLUDE 234 BEDS AT THE [facility] Last Admin: 09/19/22 08:36 Dose: 100 mg Documented By: WOODY Enoxaparin Sodium (Enoxaparin Sodium 40 Mg/0.4 Ml Syringe) 40 mg SUBCUT Q24H COUNTS INCLUDE 234 BEDS AT THE [facility] Last Admin: 09/20/22 05:41 Dose: Not Given Documented By: ADRIÁN Non-Admin Reason: possible surgery Furosemide (Furosemide 40 Mg Tablet) 40 mg PO BID@0900,1800 COUNTS INCLUDE 234 BEDS AT THE [facility]; Protocol Last Admin: 09/19/22 17:21 Dose: 40 mg Documented By: WOODY Gabapentin (Gabapentin 100 Mg Capsule) 200 mg PO BID COUNTS INCLUDE 234 BEDS AT THE [facility] Last Admin: 09/19/22 21:33 Dose: 200 mg Documented By: ADRIÁN Glucose (Glucose Gel 15 Gm Gel..Gram.) 15 gm PO Q15M PRN; Protocol PRN Reason: per Hypoglycemia Standing Ord. Dextrose (D10) 250 mls @ 750 mls/hr IV Q15M PRN; Protocol PRN Reason: per Hypoglycemia Standing Ord. Cefepime HCl 2 gm/ Sodium (Chloride) 50 mls @ 100 mls/hr IV Q8H COUNTS INCLUDE 234 BEDS AT THE [facility] Last Infusion: 09/20/22 03:26 Dose: 0 mls/hr Documented By: ADRIÁN Vancomycin HCl 1,250 mg/ (Sodium Chloride) 250 mls @ 166.667 mls/hr IV Q24H COUNTS INCLUDE 234 BEDS AT THE [facility] Insulin Glargine (Insulin Glargine,Hum.Rec.Anlog 100 Unit/Ml 10 Ml Vial) 20 unit SUBCUT DAILY COUNTS INCLUDE 234 BEDS AT THE [facility] Last Admin: 09/19/22 08:35 Dose: 20 unit Documented By: WOODY Insulin Human Lispro (Insulin Lispro 100 Unit/Ml 3 Ml Vial) 0 unit SUBCUT QIDACHS COUNTS INCLUDE 234 BEDS AT THE [facility]; Protocol Last Admin: 09/19/22 21:25 Dose: Not Given Documented By: ADRIÁN Non-Admin Reason: No Insulin Coverage Montelukast Sodium (Montelukast Sodium 10 Mg Tablet) 10 mg PO BEDTIME COUNTS INCLUDE 234 BEDS AT THE [facility] Last Admin: 09/19/22 21:33 Dose: 10 mg Documented By: ADRIÁN Morphine Sulfate (Morphine Sulfate 4 Mg/Ml Cartridge) 2 mg IVPUSH Q3H PRN; Protocol PRN Reason: Pain, Severe (Pain Scale 7-10) Last Admin: 09/20/22 06:11 Dose: 2 mg Documented By: ADRIÁN Nicotine Polacrilex (Nicotine Polacrilex 2 Mg Gum) 2 mg BUCCAL Q2H PRN PRN Reason: Nicotine Cravings Last Admin: 09/16/22 16:34 Dose: 2 mg Documented By: BILL Ondansetron HCl (Ondansetron Hcl 4 Mg/2 Ml Vial) 4 mg IVPUSH Q8H PRN PRN Reason: Nausea and Vomiting Oxycodone HCl (Oxycodone Hcl Immed Release 5 Mg Tablet) 5 mg PO Q6H PRN PRN Reason: Pain, Moderate (Pain Scale 4-6 Last Admin: 09/19/22 15:30 Dose: 5 mg Documented By: WOODY Pharmacy Consult (Consult Rx Vancomycin Dosing) 1 each MISCELLANE DAILY PRN PRN Reason: Consult order Pharmacy Consult (Consult Rx Perform Med Rec) 1 each MISCELLANE ONCE PRN PRN Reason: Consult order Polyethylene Glycol (Polyethylene Glycol 3350 17 Gm Powd.Pack) 17 gm PO DAILY PRN PRN Reason: Constipation Sodium Chloride (0.9 % Sodium Chloride Flush 3 Ml Syringe) [facility] Last Admin: 09/19/22 21:34 Dose: 3 ml Documented By: ADRIÁN Ticagrelor (Ticagrelor 90 Mg Tablet) 90 mg PO BID COUNTS INCLUDE 234 BEDS AT THE [facility] Last Admin: 09/19/22 21:34 Dose: 90 mg Documented By: ADRIÁN Labs 09/18/22 04:59 09/20/22 05:18 Labs: Laboratory Results - last 24 hr 09/19/22 09/19/22 09/19/22 07:37 08:50 12:03 Estim Creat Clear Calc 75.2 Estimated GFR > 60 POC Glucose 132 H 167 H Random Vancomycin 09/19/22 09/19/22 09/19/22 16:55 20:51 21:59 Estim Creat Clear Calc Estimated GFR POC Glucose 64 126 H Random Vancomycin 21.2 H 09/20/22 09/20/22 05:18 07:15 Estim Creat Clear Calc 82.6 Estimated GFR > 60 POC Glucose 102 Random Vancomycin Microbiology Microbiology Results: Microbiology 09/15/22 01:27 Blood Culture - Final Blood - Venous No growth after 5 days. 09/15/22 01:27 Blood Culture - Final Blood - Venous No growth after 5 days. Procedures Date of Service Date of Service: 09/20/22 Progress Note: A&P Assessment and plan (1) Diabetic foot infection: Status: Acute Plan Patient with worsening left foot cellulitis extending up leg with a nonhealing ulcer at the heel. There is no evidence of healing or granulation tissue. There is concern for an ascending infection extending up the leg. I recommended proceeding with below-knee amputation. The patient is agreeable and is expecting to have surgery today. I reviewed the procedure, risks, and alternatives in detail with the patient including the risk of nonhealing wounds and need for further surgery. After discussion she consents to a left below-knee amputation. She is been added onto the operative schedule for today. Time Spent With Patient Time: Total time managing care of this patient today ____ minutes. Quality Stroke Does the patient have a stroke diagnosis?: No VTE Prior VTE?: No VTE Risk Level:: Medical - moderate - high VTE Device Contraindication: Treatment Not Indicated VTE Drug Contraindication: N/A - Med Ordered
[2022-09-20] MEDS: Insulin Glargine,Hum.rec.anlog 100 UNIT/ML 10 ML VIAL 20 UNIT SUBCUT (07:52)
[2022-09-20] MEDS: Gabapentin 100 MG CAPSULE 200 MG PO ×2 (07:53→20:01)
[2022-09-20] MEDS: Docusate Sodium 100 MG CAPSULE PO (07:53)
[2022-09-20] MEDS: oxyCODONE HCl Immed Release 5 MG TABLET PO (07:54)
[2022-09-20] MEDS: carvediloL 3.125 MG TABLET PO ×2 (07:54→20:01)
[2022-09-20] MEDS: 0.9 % Sodium Chloride Flush 3 ML SYRINGE IVFLUSH ×2 (07:55→16:30)
[2022-09-20] MEDS: Lactated Ringers 1,000 ML 100 ML IVCONT ×2 (08:05→16:38)
--- NOTE | 2022-09-20 09:44 | P.PNIM_ITS ---
Subjective Subjective Date of Service: 09/20/22 Interval History: seen and examined this morning follow up for nonhealing foot wound no overnight events still reporting pain left foot Review of Systems Review of Systems: Yes all other systems are reviewed and are negative Constitutional Constitutional: Denies chills and Denies fever(s) Cardiovascular Cardiovascular: Denies chest pain, Denies palpitations and Denies dyspnea Respiratory Respiratory: Denies cough and Denies dyspnea Gastrointestinal Gastrointestinal: Denies abdominal pain Endocrine Endocrine: Denies palpitations Physical Exam Vital Signs: Vital Signs: Last Vital Signs Temp 98.6 F 09/20/22 08:00 Pulse 86 09/20/22 08:00 Resp 16 09/20/22 08:00 BP 107/62 09/20/22 08:00 Pulse Ox 100 09/20/22 08:00 O2 Del Method Room Air 09/20/22 08:00 BMI result Body Mass Index 31.5 Appearing in no acute distress lung sounds are clear to auscultation heart regular rate rhythm, clear S1, S2 positive bowel sounds, abdomen is soft, nontender neuro patient is alert x3, no focal deficits Objective Data Active Medications Acetaminophen (Acetaminophen 325 Mg Tablet) 650 mg PO Q6H PRN PRN Reason: Pain, Mild (Pain Scale 1-3) Last Admin: 09/17/22 21:33 Dose: 650 mg Documented By: CHERY Albuterol Sulfate (Albuterol Sulfate (0.083%) 2.5 Mg/3 Ml Vial.Neb) 2.5 mg INHALE Q6H PRN PRN Reason: Wheezing Last Admin: 09/18/22 12:05 Dose: 2.5 mg Documented By: SANIYA Aspirin (Aspirin Enteric Coated 81 Mg Tablet.) 81 mg PO DAILY [facility] Last Admin: 09/20/22 07:53 Dose: Not Given Documented By: MELANIE Non-Admin Reason: held Atorvastatin Calcium (Atorvastatin Calcium 80 Mg Tablet) 80 mg PO BEDTIME [facility] Last Admin: 09/19/22 21:33 Dose: 80 mg Documented By: ADRIÁN Carvedilol (Carvedilol 3.125 Mg Tablet) 3.125 mg PO BID [facility]; Protocol Last Admin: 09/20/22 07:54 Dose: 3.125 mg Documented By: MELANIE Docusate Sodium (Docusate Sodium 100 Mg Capsule) 100 mg PO DAILY [facility] Last Admin: 09/20/22 07:53 Dose: 100 mg Documented By: MELANIE Enoxaparin Sodium (Enoxaparin Sodium 40 Mg/0.4 Ml Syringe) 40 mg SUBCUT Q24H [facility] Last Admin: 09/20/22 05:41 Dose: Not Given Documented By: ADRIÁN Non-Admin Reason: possible surgery Furosemide (Furosemide 40 Mg Tablet) 40 mg PO BID@0900,1800 [facility]; Protocol Last Admin: 09/20/22 07:55 Dose: Not Given Documented By: MELANIE Non-Admin Reason: md held Gabapentin (Gabapentin 100 Mg Capsule) 200 mg PO BID [facility] Last Admin: 09/20/22 07:53 Dose: 200 mg Documented By: MELANIE Glucose (Glucose Gel 15 Gm Gel..Gram.) 15 gm PO Q15M PRN; Protocol PRN Reason: per Hypoglycemia Standing Ord. Dextrose (D10) 250 mls @ 750 mls/hr IV Q15M PRN; Protocol PRN Reason: per Hypoglycemia Standing Ord. Cefepime HCl 2 gm/ Sodium (Chloride) 50 mls @ 100 mls/hr IV Q8H [facility] Last Infusion: 09/20/22 03:26 Dose: 0 mls/hr Documented By: ADRIÁN Vancomycin HCl 1,250 mg/ (Sodium Chloride) 250 mls @ 166.667 mls/hr IV Q24H [facility] Lactated Ringer's (Lr) 1,000 mls @ 100 mls/hr IVCONT .Q10H [facility] Last Admin: 09/20/22 08:05 Dose: 100 mls/hr Documented By: MELANIE Insulin Glargine (Insulin Glargine,Hum.Rec.Anlog 100 Unit/Ml 10 Ml Vial) 20 unit SUBCUT DAILY [facility] Last Admin: 09/20/22 07:52 Dose: 20 unit Documented By: MELANIE Insulin Human Lispro (Insulin Lispro 100 Unit/Ml 3 Ml Vial) 0 unit SUBCUT QID ACHS [facility]; Protocol Last Admin: 09/20/22 07:43 Dose: Not Given Documented By: MELANIE Non-Admin Reason: No Insulin Coverage Montelukast Sodium (Montelukast Sodium 10 Mg Tablet) 10 mg PO BEDTIME [facility] Last Admin: 09/19/22 21:33 Dose: 10 mg Documented By: ADRIÁN Morphine Sulfate (Morphine Sulfate 4 Mg/Ml Cartridge) 2 mg IVPUSH Q3H PRN; Protocol PRN Reason: Pain, Severe (Pain Scale 7-10) Last Admin: 09/20/22 06:11 Dose: 2 mg Documented By: ADIRÁN Nicotine Polacrilex (Nicotine Polacrilex 2 Mg Gum) 2 mg BUCCAL Q2H PRN PRN Reason: Nicotine Cravings Last Admin: 09/16/22 16:34 Dose: 2 mg Documented By: BILL Ondansetron HCl (Ondansetron Hcl 4 Mg/2 Ml Vial) 4 mg IVPUSH Q8H PRN PRN Reason: Nausea and Vomiting Oxycodone HCl (Oxycodone Hcl Immed Release 5 Mg Tablet) 5 mg PO Q6H PRN PRN Reason: Pain, Moderate (Pain Scale 4-6 Last Admin: 09/20/22 07:54 Dose: 5 mg Documented By: MELANIE Pharmacy Consult (Consult Rx Vancomycin Dosing) 1 each MISCELLANE DAILY PRN PRN Reason: Consult order Pharmacy Consult (Consult Rx Perform Med Rec) 1 each MISCELLANE ONCE PRN PRN Reason: Consult order Polyethylene Glycol (Polyethylene Glycol 3350 17 Gm Powd.Pack) 17 gm PO DAILY PRN PRN Reason: Constipation Sodium Chloride (0.9 % Sodium Chloride Flush 3 Ml Syringe) 3 ml IVFLUSH QSHIFT [facility] Last Admin: 09/20/22 07:55 Dose: 3 ml Documented By: MELANIE Ticagrelor (Ticagrelor 90 Mg Tablet) 90 mg PO BID [facility] Last Admin: 09/20/22 08:05 Dose: Not Given Documented By: MELANIE Non-Admin Reason: hold til after surgery Labs 09/18/22 04:59 09/20/22 05:18 Labs: Laboratory Results - last 24 hr 09/19/22 09/19/22 09/19/22 12:03 16:55 20:51 Estim Creat Clear Calc Estimated GFR POC Glucose 167 H 64 126 H Random Vancomycin 09/19/22 09/20/22 09/20/22 21:59 05:18 07:15 Estim Creat Clear Calc 82.6 Estimated GFR > 60 POC Glucose 102 Random Vancomycin 21.2 H Microbiology Microbiology Results: Microbiology 09/15/22 01:27 Blood Culture - Final Blood - Venous No growth after 5 days. 09/15/22 01:27 Blood Culture - Final Blood - Venous No growth after 5 days. Assessment and Plan (1) Coronary artery disease: Status: Acute (2) Diabetic foot infection: Status: Acute Plan This is a 52-year-old female with past medical history of CAD s/p STEMI and recent BARTOLOME to LAD at [facility] 08/2022, chronic osteomyelitis of great toe of the left foot, cellulitis as of left lower extremity, diabetic foot ulcer presents to the hospital with complaints of worsening pain and drainage.? pt admitted 09/08- left AMA 09/10, re-admitted 09/12 and left AMA on 09/13 cellulitis of left lower extremity/infected diabetic foot wound? seen by general surgery s/p bedside debridement/I&D 09/15, 06/21 CT of left foot - no abscess, no osteo. seen by cardiology and pt moderate to high risk given recent STEMI. Can NOT interrupt DAPT. continue IV cefepime, vanco, started 09/15 ID following blood cultures negative Plan for BKA today chronic osteomyelitis of left great toe plan for BKA CAD with recent STEMI s/p BARTOLOME to the proximal LAD August 2022/ischemic cardiomyopathy (EF 15%) obtained cath report and DC summary from [facility] 08/31 Not on med rec but previously taking? --> brilinta, aspirin, carvedilol 3.125 mg b.i.d,? atorvastatin 80 mg according to d/c from [facility]. pt noncompliant with meds seen by cardiology: recommend to reload brilinta and resume aspirin, should not stop DAPT; pt at moderate to high risk for postoperative cardiovascular complications if requires surgery/general anesthesia continued BB, statin COPD no acute exacerbation prn breathing treatments Chronic HFrEF not in exacerbation resume baseline dose lasix 40 bid PAD lower extremity artery duplex on 06/21/2022 showing chronic total occlusion of the proximal mid superficial femoral artery with reconstituted flow in the popliteal artery and likely occlusion of the posterior tibial artery below the knee.? Left leg with chronic total occlusion of the mid to superficial femoral artery with reconstituted flow in the popliteal artery DAPT, statin uncontrolled T2DM with hyperglycemia secondary to noncompliance. Hba1c 10.0. BS 700 on admission POCs controlled on Lantus 20U (on 20 bid at baseline but noncompliant, can up titrate prn) ADA diet, SSI Chronic iron deficiency anemia H/H stable-above transfusion threshold Hyperkalemia resolved. DVT prophylaxis:? Korin attending - dr. Hernandez HCP - daughter Angely patient requires ongoing inpatient hospitalization for IV abx, repeat imaging and possible further surgical intervention for foot infection Time Spent With Patient Time: Total time managing care of this patient today ____ minutes. Quality Stroke Does the patient have a stroke diagnosis?: No VTE Prior VTE?: No VTE Risk Level:: Medical - moderate - high VTE Device Contraindication: Treatment Not Indicated VTE Drug Contraindication: N/A - Med Ordered
[2022-09-20 11:19] LABS: Glucose, Whole Blood 88 mg/dL (60-115)
[2022-09-20] MEDS: vancomycin HCL 1,250 MG in 0.9 % Sodium Chloride 250 ML 166.67 MG IV (11:47)
[2022-09-20] MEDS: Albuterol Sulfate (0.083%) 2.5 MG/3 ML VIAL.NEB INHALE (12:35)
--- NOTE | 2022-09-20 12:47 | HO.ANESPROP2 ---
HPI - Anesthesia Eval Consult details Narrative: bka [facility] Active Problems Active Problems: All Active Problems (Updated 09/18/22 @ 00:02 by Aron Packer) Coronary artery disease (Acute) Diabetic foot infection (Acute) Hyperglycemia due to diabetes mellitus (Acute) Left against medical advice (Acute) Cellulitis in diabetic foot (Acute) Asthma exacerbation in COPD (Acute) 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 (Acute) Cellulitis of left lower extremity (Acute) Diabetic foot ulcer (Acute) PAD (peripheral artery disease) (Acute) Open wound of both legs with complication (Acute) Ischemic cardiomyopathy (Acute) CHF (congestive heart failure) (Acute) Acute non-ST elevation myocardial infarction (NSTEMI) (Acute) Left against medical advice (Acute) Pneumonia (Acute) Acute exacerbation of chronic obstructive pulmonary disease (Acute) Abdominal wall pain (Acute) Abscess of right foot (Acute) Cellulitis of leg, right (Acute) Congestive heart failure (Acute) Elevated troponin level not due myocardial infarction (Acute) Diabetic foot infection (Acute) Hyperglycemia (Acute) Dehydration (Acute) IRAIS (acute kidney injury) (Acute) Sepsis (Acute) Cellulitis of right foot (Acute) Pulmonary edema with left heart failure (Acute) Unstable angina pectoris (Acute) Pyelonephritis (Acute) Right ureteral stone (Acute) Abscess of plantar aspect of foot (Acute) IRAIS (acute kidney injury) (Acute) Cellulitis of foot, left (Acute) Left foot infection (Acute) Cellulitis (Acute) Heart problem (Acute) Nausea and vomiting (Acute) Oral thrush (Acute) Dehydration (Acute) Abnormal CT of the abdomen (Acute) Acute pain of left foot (Acute) Osteomyelitis (Acute) COPD (chronic obstructive pulmonary disease) (Acute) Asthma (Acute) Past Medical History Medical History Asthma Atherosclerotic cardiovascular disease Atrial tachycardia COPD (chronic obstructive pulmonary disease) COVID-19 vaccine series completed Diabetes Diabetic foot infection Diabetic toe ulcer Essential hypertension GERD (gastroesophageal reflux disease) Hypertension Left against medical advice Left against medical advice Osteomyelitis PAD (peripheral artery disease) Family History Family History Mother Hx of CABG Sister CAD (coronary artery disease) Family history of problems with anesthesia: No Surgical History Surgical History History of esophagogastroduodenoscopy (EGD) History of toe surgery (09/22/21) History of Problems with Anesthesia: No Social History Social History Household Members: Family and Children Housing: Apartment Do you presently have visiting nurse or other home services: No Unable to assess alcohol history related to: Refusing to respond Alcohol intake: never Patient Tobacco Use Status: Current everyday Tobacco user Tobacco use type: Cigarette Cigarette Packs Per Day: 0.5 Cigarettes Per Day: 3 Years Smoked: 43 e-Cigarette/Vaping Use: Currently Using Second Hand Smoke Exposure: Yes Advance Directives Date on File: 12/28/20 service: No Current occupational status: unemployed and disabled Meds Allergies Allergy/AdvReac Type Severity Reaction Status Date / Time Penicillins [PENICILLINS] Allergy Severe RASH Verified 08/27/22 17:42 amoxicillin [AMOXICILLIN] Allergy Intermediate HIVES Verified 08/27/22 17:42 codeine Allergy Itching Verified 08/27/22 17:42 Active Medications: Current Medications Acetaminophen (Acetaminophen 325 Mg Tablet) 650 mg PO Q6H PRN PRN Reason: Pain, Mild (Pain Scale 1-3) Last Admin: 09/17/22 21:33 Dose: 650 mg Albuterol Sulfate (Albuterol Sulfate (0.083%) 2.5 Mg/3 Ml Vial.Neb) 2.5 mg INHALE Q6H PRN PRN Reason: Wheezing Last Admin: 09/20/22 12:35 Dose: 2.5 mg Aspirin (Aspirin Enteric Coated 81 Mg Tablet.) 81 mg PO DAILY PENDING SALE TO [facility] Last Admin: 09/20/22 07:53 Dose: Not Given Atorvastatin Calcium (Atorvastatin Calcium 80 Mg Tablet) 80 mg PO BEDTIME PENDING SALE TO [facility] Last Admin: 09/19/22 21:33 Dose: 80 mg Carvedilol (Carvedilol 3.125 Mg Tablet) 3.125 mg PO BID PENDING SALE TO [facility]; Protocol Last Admin: 09/20/22 07:54 Dose: 3.125 mg Docusate Sodium (Docusate Sodium 100 Mg Capsule) 100 mg PO DAILY PENDING SALE TO [facility] Last Admin: 09/20/22 07:53 Dose: 100 mg Enoxaparin Sodium (Enoxaparin Sodium 40 Mg/0.4 Ml Syringe) 40 mg SUBCUT Q24H PENDING SALE TO [facility] Last Admin: 09/20/22 05:41 Dose: Not Given Furosemide (Furosemide 40 Mg Tablet) 40 mg PO BID@0900,1800 PENDING SALE TO [facility]; Protocol Last Admin: 09/20/22 07:55 Dose: Not Given Gabapentin (Gabapentin 100 Mg Capsule) 200 mg PO BID PENDING SALE TO [facility] Last Admin: 09/20/22 07:53 Dose: 200 mg Glucose (Glucose Gel 15 Gm Gel..Gram.) 15 gm PO Q15M PRN; Protocol PRN Reason: per Hypoglycemia Standing Ord. Dextrose (D10) 250 mls @ 750 mls/hr IV Q15M PRN; Protocol PRN Reason: per Hypoglycemia Standing Ord. Cefepime HCl 2 gm/ Sodium (Chloride) 50 mls @ 100 mls/hr IV Q8H PENDING SALE TO [facility] Last Infusion: 09/20/22 11:48 Dose: Infused Vancomycin HCl 1,250 mg/ (Sodium Chloride) 250 mls @ 166.667 mls/hr IV Q24H PENDING SALE TO [facility] Last Admin: 09/20/22 11:47 Dose: 166.67 mls/hr Lactated Ringer's (Lr) 1,000 mls @ 100 mls/hr IVCONT .Q10H PENDING SALE TO [facility] Last Infusion: 09/20/22 11:00 Dose: 0 mls/hr Insulin Glargine (Insulin Glargine,Hum.Rec.Anlog 100 Unit/Ml 10 Ml Vial) 20 unit SUBCUT DAILY PENDING SALE TO [facility] Last Admin: 09/20/22 07:52 Dose: 20 unit Insulin Human Lispro (Insulin Lispro 100 Unit/Ml 3 Ml Vial) 0 unit SUBCUT QIDACHS PENDING SALE TO [facility]; Protocol Last Admin: 09/20/22 11:41 Dose: Not Given Montelukast Sodium (Montelukast Sodium 10 Mg Tablet) 10 mg PO BEDTIME PENDING SALE TO [facility] Last Admin: 09/19/22 21:33 Dose: 10 mg Morphine Sulfate (Morphine Sulfate 4 Mg/Ml Cartridge) 2 mg IVPUSH Q3H PRN; Protocol PRN Reason: Pain, Severe (Pain Scale 7-10) Last Admin: 09/20/22 09:55 Dose: 2 mg Nicotine Polacrilex (Nicotine Polacrilex 2 Mg Gum) 2 mg BUCCAL Q2H PRN PRN Reason: Nicotine Cravings Last Admin: 09/16/22 16:34 Dose: 2 mg Ondansetron HCl (Ondansetron Hcl 4 Mg/2 Ml Vial) 4 mg IVPUSH Q8H PRN PRN Reason: Nausea and Vomiting Oxycodone HCl (Oxycodone Hcl Immed Release 5 Mg Tablet) 5 mg PO Q6H PRN PRN Reason: Pain, Moderate (Pain Scale 4-6 Last Admin: 09/20/22 07:54 Dose: 5 mg Pharmacy Consult (Consult Rx Vancomycin Dosing) 1 each MISCELLANE DAILY PRN PRN Reason: Consult order Pharmacy Consult (Consult Rx Perform Med Rec) 1 each MISCELLANE ONCE PRN PRN Reason: Consult order Polyethylene Glycol (Polyethylene Glycol 3350 17 Gm Powd.Pack) 17 gm PO DAILY PRN PRN Reason: Constipation Sodium Chloride (0.9 % Sodium Chloride Flush 3 Ml Syringe) 3 ml IVFLUSH QSHIFT PENDING SALE TO [facility] Last Admin: 09/20/22 07:55 Dose: 3 ml Ticagrelor (Ticagrelor 90 Mg Tablet) 90 mg PO BID PENDING SALE TO [facility] Last Admin: 09/20/22 08:05 Dose: Not Given Home Medications Medication Instructions Recorded Confirmed Last Taken Type aspirin 81 mg tablet,delayed 1 tab PO DAILY 12/24/20 09/15/22 09/07/22 History release umeclidinium 62.5 mcg/actuation 1 puff PO DAILY 10/31/21 09/15/22 09/07/22 History blister powder for inhalation (Incruse Ellipta) montelukast 10 mg tablet 1 tab PO BEDTIME 02/13/22 09/15/22 09/07/22 History insulin glargine 100 unit/mL (3 20 unit subcut BID 03/23/22 09/15/22 09/07/22 History mL) subcutaneous pen (Lantus Solostar U-100 Insulin) gabapentin 300 mg capsule 2 cap PO BID 05/01/22 09/15/22 09/07/22 History albuterol sulfate 2.5 mg/3 mL 1 vial inhalation Q6H PRN Wheezing 06/19/22 09/15/22 09/07/22 History (0.083 %) solution for nebulization albuterol sulfate 90 mcg/actuation 1 - 2 puff inhalation Q4-6H PRN 06/19/22 09/15/22 09/07/22 History aerosol inhaler (Ventolin HFA) Wheezing lisinopril 20 mg tablet 20 mg PO DAILY 09/08/22 09/15/22 09/07/22 History furosemide 40 mg tablet 40 mg PO BID 09/12/22 09/15/22 Unknown History Exam Exam Date and Time: September 20, 2022 1247 Height,Weight and Vital Signs: Height 5 ft 3 in Weight 80.7 kg Last Vital Signs Temp 98.6 F 09/20/22 08:00 Pulse 82 09/20/22 12:37 Resp 18 09/20/22 12:37 BP 107/62 09/20/22 08:00 Pulse Ox 100 09/20/22 08:00 O2 Del Method Room Air 09/20/22 08:00 Pertinent Lab Results Pertinent Lab Results: Laboratory Tests 09/15/22 09/15/22 09/15/22 00:44 00:44 00:44 WBC 16.0 H RBC 4.67 Hgb 9.2 L Hct 32.0 L MCV 68.5 L MCH 19.7 L MCHC 28.8 L RDW 22.0 H Plt Count 236 MPV 11.4 Immature Gran % (Auto) 0.8 H Neut % (Auto) 84.5 H Lymph % (Auto) 9.8 L [place] % (Auto) 4.5 Eos % (Auto) 0.3 Baso % (Auto) 0.1 Lymph # (Auto) 1.6 [place] # (Auto) 0.7 Eos # (Auto) 0.0 Baso # (Auto) 0.0 Abs Immat Gran (auto) 0.12 H Absolute Neuts (auto) 13.5 H Absolute Nucleated RBC 0.000 Nucleated RBC % (auto) 0.0 Smear Tech's Comments VBG pH VBG pCO2 VBG pO2 VBG HCO3 VBG O2 Saturation VBG Base Excess Sodium 133 L Potassium 5.7 H D Chloride 96 Carbon Dioxide 26 Anion Gap 17 BUN 27 H Creatinine 1.37 Estim Creat Clear Calc 45.0 Estimated GFR 41 POC Glucose Random Glucose 710 H* Lactic Acid Lactic Acid F/U @ 2Hr 3.4 H* Lactic Acid F/U @ 4Hr Calcium 8.4 Total Bilirubin 1.0 AST 26 ALT 15 Alkaline Phosphatase 85 Total Protein 6.3 L Albumin 2.9 L Random Vancomycin Acetone, Qual Negative COVID-19 (KATHLEEN) COVID-19 Clin Com 09/15/22 09/15/22 09/15/22 01:32 02:22 02:59 WBC RBC Hgb Hct MCV MCH MCHC RDW Plt Count MPV Immature Gran % (Auto) Neut % (Auto) Lymph % (Auto) [place] % (Auto) Eos % (Auto) Baso % (Auto) Lymph # (Auto) [place] # (Auto) Eos # (Auto) Baso # (Auto) Abs Immat Gran (auto) Absolute Neuts (auto) Absolute Nucleated RBC Nucleated RBC % (auto) Smear Tech's Comments VBG pH 7.41 VBG pCO2 40 VBG pO2 43 VBG HCO3 25 VBG O2 Saturation TNP VBG Base Excess 1.2 Sodium Potassium Chloride Carbon Dioxide Anion Gap BUN Creatinine Estim Creat Clear Calc Estimated GFR POC Glucose 544 H* Random Glucose Lactic Acid Lactic Acid F/U @ 2Hr Lactic Acid F/U @ 4Hr Calcium Total Bilirubin AST ALT Alkaline Phosphatase Total Protein Albumin Random Vancomycin Acetone, Qual COVID-19 (KATHLEEN) Negative [employer] See Note 09/15/22 09/15/22 09/15/22 03:15 03:57 05:37 WBC RBC Hgb Hct MCV MCH MCHC RDW Plt Count MPV Immature Gran % (Auto) Neut % (Auto) Lymph % (Auto) [place] % (Auto) Eos % (Auto) Baso % (Auto) Lymph # (Auto) [place] # (Auto) Eos # (Auto) Baso # (Auto) Abs Immat Gran (auto) Absolute Neuts (auto) Absolute Nucleated RBC Nucleated RBC % (auto) Smear Tech's Comments VBG pH VBG pCO2 VBG pO2 VBG HCO3 VBG O2 Saturation VBG Base Excess Sodium Potassium Chloride Carbon Dioxide Anion Gap BUN Creatinine Estim Creat Clear Calc Estimated GFR POC Glucose 418 H* 353 H* Random Glucose Lactic Acid Lactic Acid F/U @ 2Hr Lactic Acid F/U @ 4Hr 2.5 H* Calcium Total Bilirubin AST ALT Alkaline Phosphatase Total Protein Albumin Random Vancomycin Acetone, Qual COVID-19 (KATHLEEN) [employer] 09/15/22 09/15/22 09/15/22 05:48 05:48 07:22 WBC 11.9 H RBC 4.54 Hgb 8.8 L Hct 31.1 L MCV 68.5 L MCH 19.4 L MCHC 28.3 L RDW 21.3 H Plt Count 196 MPV Not Reportable Immature Gran % (Auto) 0.8 H Neut % (Auto) 80.6 H Lymph % (Auto) 12.5 L [place] % (Auto) 5.7 Eos % (Auto) 0.3 Baso % (Auto) 0.1 Lymph # (Auto) 1.5 [place] # (Auto) 0.7 Eos # (Auto) 0.0 Baso # (Auto) 0.0 Abs Immat Gran (auto) 0.10 H Absolute Neuts (auto) 9.6 H Absolute Nucleated RBC 0.000 Nucleated RBC % (auto) 0.0 Smear Tech's Comments VERIFIED VBG pH VBG pCO2 VBG pO2 VBG HCO3 VBG O2 Saturation VBG Base Excess Sodium 137 Potassium 4.0 D Chloride 103 Carbon Dioxide 25 Anion Gap 13 BUN 22 H Creatinine 0.86 Estim Creat Clear Calc 71.7 Estimated GFR > 60 POC Glucose Random Glucose 384 H* Lactic Acid 1.8 Lactic Acid F/U @ 2Hr Lactic Acid F/U @ 4Hr Calcium 7.7 L D Total Bilirubin AST ALT Alkaline Phosphatase Total Protein Albumin Random Vancomycin Acetone, Qual COVID-19 (KATHLEEN) [employer] 09/15/22 09/15/22 09/15/22 07:32 08:47 11:20 WBC RBC Hgb Hct MCV MCH MCHC RDW Plt Count MPV Immature Gran % (Auto) Neut % (Auto) Lymph % (Auto) [place] % (Auto) Eos % (Auto) Baso % (Auto) Lymph # (Auto) [place] # (Auto) Eos # (Auto) Baso # (Auto) Abs Immat Gran (auto) Absolute Neuts (auto) Absolute Nucleated RBC Nucleated RBC % (auto) Smear Tech's Comments VBG pH VBG pCO2 VBG pO2 VBG HCO3 VBG O2 Saturation VBG Base Excess Sodium Potassium Chloride Carbon Dioxide Anion Gap BUN Creatinine Estim Creat Clear Calc Estimated GFR POC Glucose 312 H 251 H 219 H Random Glucose Lactic Acid Lactic Acid F/U @ 2Hr Lactic Acid F/U @ 4Hr Calcium Total Bilirubin AST ALT Alkaline Phosphatase Total Protein Albumin Random Vancomycin Acetone, Qual COVID-19 (KATHLEEN) COVID-19 [employer] 09/15/22 09/15/22 09/16/22 16:06 20:15 07:20 WBC RBC Hgb Hct MCV MCH MCHC RDW Plt Count MPV Immature Gran % (Auto) Neut % (Auto) Lymph % (Auto) [place] % (Auto) Eos % (Auto) Baso % (Auto) Lymph # (Auto) [place] # (Auto) Eos # (Auto) Baso # (Auto) Abs Immat Gran (auto) Absolute Neuts (auto) Absolute Nucleated RBC Nucleated RBC % (auto) Smear Tech's Comments VBG pH VBG pCO2 VBG pO2 VBG HCO3 VBG O2 Saturation VBG Base Excess Sodium Potassium Chloride Carbon Dioxide Anion Gap BUN Creatinine Estim Creat Clear Calc Estimated GFR POC Glucose 90 124 H 113 Random Glucose Lactic Acid Lactic Acid F/U @ 2Hr Lactic Acid F/U @ 4Hr Calcium Total Bilirubin AST ALT Alkaline Phosphatase Total Protein Albumin Random Vancomycin Acetone, Qual COVID-19 (KATHLEEN) [employer] 09/16/22 09/16/22 09/16/22 09:42 09:42 09:42 WBC 14.5 H RBC 5.43 Hgb 10.6 L D Hct 37.3 MCV 68.7 L MCH 19.5 L MCHC 28.4 L RDW 21.6 H Plt Count 243 MPV Not Reportable Immature Gran % (Auto) Neut % (Auto) Lymph % (Auto) [place] % (Auto) Eos % (Auto) Baso % (Auto) Lymph # (Auto) [place] # (Auto) Eos # (Auto) Baso # (Auto) Abs Immat Gran (auto) Absolute Neuts (auto) Absolute Nucleated RBC 0.000 Nucleated RBC % (auto) 0.0 Smear Tech's Comments VBG pH VBG pCO2 VBG pO2 VBG HCO3 VBG O2 Saturation VBG Base Excess Sodium 141 Potassium 3.9 Chloride 104 Carbon Dioxide 29 Anion Gap 12 BUN 22 H Creatinine Cancelled 0.82 Estim Creat Clear Calc Cancelled 81.6 Estimated GFR Cancelled > 60 POC Glucose Random Glucose 110 Lactic Acid Lactic Acid F/U @ 2Hr Lactic Acid F/U @ 4Hr Calcium 8.4 D Total Bilirubin AST ALT Alkaline Phosphatase Total Protein Albumin Random Vancomycin Acetone, Qual COVID-19 (KATHLEEN) [employer] 09/16/22 09/16/22 09/16/22 11:09 16:27 20:40 WBC RBC Hgb Hct MCV MCH MCHC RDW Plt Count MPV Immature Gran % (Auto) Neut % (Auto) Lymph % (Auto) [place] % (Auto) Eos % (Auto) Baso % (Auto) Lymph # (Auto) [place] # (Auto) Eos # (Auto) Baso # (Auto) Abs Immat Gran (auto) Absolute Neuts (auto) Absolute Nucleated RBC Nucleated RBC % (auto) Smear Tech's Comments VBG pH VBG pCO2 VBG pO2 VBG HCO3 VBG O2 Saturation VBG Base Excess Sodium Potassium Chloride Carbon Dioxide Anion Gap BUN Creatinine Estim Creat Clear Calc Estimated GFR POC Glucose 111 144 H 141 H Random Glucose Lactic Acid Lactic Acid F/U @ 2Hr Lactic Acid F/U @ 4Hr Calcium Total Bilirubin AST ALT Alkaline Phosphatase Total Protein Albumin Random Vancomycin Acetone, Qual COVID-19 (KATHLEEN) [employer] 09/17/22 09/17/22 09/17/22 05:40 07:02 11:00 WBC RBC Hgb Hct MCV MCH MCHC RDW Plt Count MPV Immature Gran % (Auto) Neut % (Auto) Lymph % (Auto) [place] % (Auto) Eos % (Auto) Baso % (Auto) Lymph # (Auto) [place] # (Auto) Eos # (Auto) Baso # (Auto) Abs Immat Gran (auto) Absolute Neuts (auto) Absolute Nucleated RBC Nucleated RBC % (auto) Smear Tech's Comments VBG pH VBG pCO2 VBG pO2 VBG HCO3 VBG O2 Saturation VBG Base Excess Sodium Potassium Chloride Carbon Dioxide Anion Gap BUN Creatinine 0.78 Estim Creat Clear Calc 85.8 Estimated GFR > 60 POC Glucose 76 110 Random Glucose Lactic Acid Lactic Acid F/U @ 2Hr Lactic Acid F/U @ 4Hr Calcium Total Bilirubin AST ALT Alkaline Phosphatase Total Protein Albumin Random Vancomycin Acetone, Qual COVID-19 (KATHLEEN) [employer] 09/17/22 09/17/22 09/17/22 16:26 20:27 22:05 WBC RBC Hgb Hct MCV MCH MCHC RDW Plt Count MPV Immature Gran % (Auto) Neut % (Auto) Lymph % (Auto) [place] % (Auto) Eos % (Auto) Baso % (Auto) Lymph # (Auto) [place] # (Auto) Eos # (Auto) Baso # (Auto) Abs Immat Gran (auto) Absolute Neuts (auto) Absolute Nucleated RBC Nucleated RBC % (auto) Smear Tech's Comments VBG pH VBG pCO2 VBG pO2 VBG HCO3 VBG O2 Saturation VBG Base Excess Sodium Potassium Chloride Carbon Dioxide Anion Gap BUN Creatinine Estim Creat Clear Calc Estimated GFR POC Glucose 86 116 H Random Glucose Lactic Acid Lactic Acid F/U @ 2Hr Lactic Acid F/U @ 4Hr Calcium Total Bilirubin AST ALT Alkaline Phosphatase Total Protein Albumin Random Vancomycin 13.5 L Acetone, Qual COVID-19 (KATHLEEN) COVID-19 [employer] 09/18/22 09/18/22 09/18/22 04:59 04:59 07:33 WBC 8.0 RBC 4.85 Hgb 9.3 L Hct 33.1 L MCV 68.2 L MCH 19.2 L MCHC 28.1 L RDW 21.4 H Plt Count 187 MPV TNP Immature Gran % (Auto) Neut % (Auto) Lymph % (Auto) [place] % (Auto) Eos % (Auto) Baso % (Auto) Lymph # (Auto) [place] # (Auto) Eos # (Auto) Baso # (Auto) Abs Immat Gran (auto) Absolute Neuts (auto) Absolute Nucleated RBC 0.000 Nucleated RBC % (auto) 0.0 Smear Tech's Comments VBG pH VBG pCO2 VBG pO2 VBG HCO3 VBG O2 Saturation VBG Base Excess Sodium Potassium Chloride Carbon Dioxide Anion Gap BUN Creatinine 0.84 Estim Creat Clear Calc 79.6 Estimated GFR > 60 POC Glucose 103 Random Glucose Lactic Acid Lactic Acid F/U @ 2Hr Lactic Acid F/U @ 4Hr Calcium Total Bilirubin AST ALT Alkaline Phosphatase Total Protein Albumin Random Vancomycin Acetone, Qual COVID-19 (KATHLEEN) COVID-19 [employer] 09/18/22 09/18/22 09/18/22 11:20 15:27 19:43 WBC RBC Hgb Hct MCV MCH MCHC RDW Plt Count MPV Immature Gran % (Auto) Neut % (Auto) Lymph % (Auto) [place] % (Auto) Eos % (Auto) Baso % (Auto) Lymph # (Auto) [place] # (Auto) Eos # (Auto) Baso # (Auto) Abs Immat Gran (auto) Absolute Neuts (auto) Absolute Nucleated RBC Nucleated RBC % (auto) Smear Tech's Comments VBG pH VBG pCO2 VBG pO2 VBG HCO3 VBG O2 Saturation VBG Base Excess Sodium Potassium Chloride Carbon Dioxide Anion Gap BUN Creatinine Estim Creat Clear Calc Estimated GFR POC Glucose 112 122 H 258 H Random Glucose Lactic Acid Lactic Acid F/U @ 2Hr Lactic Acid F/U @ 4Hr Calcium Total Bilirubin AST ALT Alkaline Phosphatase Total Protein Albumin Random Vancomycin Acetone, Qual COVID-19 (KATHLEEN) [employer] 09/18/22 09/19/22 09/19/22 22:08 07:37 08:50 WBC RBC Hgb Hct MCV MCH MCHC RDW Plt Count MPV Immature Gran % (Auto) Neut % (Auto) Lymph % (Auto) [place] % (Auto) Eos % (Auto) Baso % (Auto) Lymph # (Auto) [place] # (Auto) Eos # (Auto) Baso # (Auto) Abs Immat Gran (auto) Absolute Neuts (auto) Absolute Nucleated RBC Nucleated RBC % (auto) Smear Tech's Comments VBG pH VBG pCO2 VBG pO2 VBG HCO3 VBG O2 Saturation VBG Base Excess Sodium Potassium Chloride Carbon Dioxide Anion Gap BUN Creatinine 0.89 Estim Creat Clear Calc 75.2 Estimated GFR > 60 POC Glucose 132 H Random Glucose Lactic Acid Lactic Acid F/U @ 2Hr Lactic Acid F/U @ 4Hr Calcium Total Bilirubin AST ALT Alkaline Phosphatase Total Protein Albumin Random Vancomycin 16.6 Acetone, Qual COVID-19 (KATHLEEN) [employer] 09/19/22 09/19/22 09/19/22 12:03 16:55 20:51 WBC RBC Hgb Hct MCV MCH MCHC RDW Plt Count MPV Immature Gran % (Auto) Neut % (Auto) Lymph % (Auto) [place] % (Auto) Eos % (Auto) Baso % (Auto) Lymph # (Auto) [place] # (Auto) Eos # (Auto) Baso # (Auto) Abs Immat Gran (auto) Absolute Neuts (auto) Absolute Nucleated RBC Nucleated RBC % (auto) Smear Tech's Comments VBG pH VBG pCO2 VBG pO2 VBG HCO3 VBG O2 Saturation VBG Base Excess Sodium Potassium Chloride Carbon Dioxide Anion Gap BUN Creatinine Estim Creat Clear Calc Estimated GFR POC Glucose 167 H 64 126 H Random Glucose Lactic Acid Lactic Acid F/U @ 2Hr Lactic Acid F/U @ 4Hr Calcium Total Bilirubin AST ALT Alkaline Phosphatase Total Protein Albumin Random Vancomycin Acetone, Qual COVID-19 (KATHLEEN) [employer] 09/19/22 09/20/22 09/20/22 21:59 05:18 07:15 WBC RBC Hgb Hct MCV MCH MCHC RDW Plt Count MPV Immature Gran % (Auto) Neut % (Auto) Lymph % (Auto) [place] % (Auto) Eos % (Auto) Baso % (Auto) Lymph # (Auto) [place] # (Auto) Eos # (Auto) Baso # (Auto) Abs Immat Gran (auto) Absolute Neuts (auto) Absolute Nucleated RBC Nucleated RBC % (auto) Smear Tech's Comments VBG pH VBG pCO2 VBG pO2 VBG HCO3 VBG O2 Saturation VBG Base Excess Sodium Potassium Chloride Carbon Dioxide Anion Gap BUN Creatinine 0.81 Estim Creat Clear Calc 82.6 Estimated GFR > 60 POC Glucose 102 Random Glucose Lactic Acid Lactic Acid F/U @ 2Hr Lactic Acid F/U @ 4Hr Calcium Total Bilirubin AST ALT Alkaline Phosphatase Total Protein Albumin Random Vancomycin 21.2 H Acetone, Qual COVID-19 (KATHLEEN) [employer] 09/20/22 11:11 WBC RBC Hgb Hct MCV MCH MCHC RDW Plt Count MPV Immature Gran % (Auto) Neut % (Auto) Lymph % (Auto) [place] % (Auto) Eos % (Auto) Baso % (Auto) Lymph # (Auto) [place] # (Auto) Eos # (Auto) Baso # (Auto) Abs Immat Gran (auto) Absolute Neuts (auto) Absolute Nucleated RBC Nucleated RBC % (auto) Smear Tech's Comments VBG pH VBG pCO2 VBG pO2 VBG HCO3 VBG O2 Saturation VBG Base Excess Sodium Potassium Chloride Carbon Dioxide Anion Gap BUN Creatinine Estim Creat Clear Calc Estimated GFR POC Glucose 88 Random Glucose Lactic Acid Lactic Acid F/U @ 2Hr Lactic Acid F/U @ 4Hr Calcium Total Bilirubin AST ALT Alkaline Phosphatase Total Protein Albumin Random Vancomycin Acetone, Qual COVID-19 (KATHLEEN) [employer] Airway Mallampati Class: II TM Dist: >3cm Neck ROM: Limited Heart: rrr Lungs: cta Assessment and Plan Assessment Anesthesia Assessment: Anesthesia Plan Discussed and Chart Reviewed Final Anesthetic Review Family History of Problems with Anesthesia: No History of Problems with Anesthesia: No NPO: Yes ASA Class: IV Final Preanesthetic Review: No Changes in Pt Med Stat, Meds/Allgs Chart Reviewed, Consent Obtained/Reviewed and Anes Risks/Benef Reviewed Patient Risk: High Procedure Risk: Intermediate Anesthetic Plan Anesthetic Plan: Regional Block and Agree w/ Assess. and Plan Disposition: Standard PACU
[2022-09-20 13:04] LABS: Glucose, Whole Blood 76 mg/dL (60-115)
[2022-09-20 13:14] LABS: Basophils Absolute Auto 0.1 X10*3/uL (0.0-0.2); Basophils Percent Auto 0.6 % (0-2); Eosinophils Absolute Auto 0.1 X10*3/uL (0.0-0.4); Eosinophils Percent Auto 0.9 % (0-4); Hematocrit 31.2 % (37.0-47.0); Imm Gran Abs Auto 0.05 X10*3/uL (0.00-0.03); Imm Gran Pct Auto 0.6 % (0.0-0.4); Lymphocytes Absolute Auto 1.3 X10*3/uL (1.2-4.9); Mean Corpuscular HGB Conc 28.8 g/dl (31.0-35.0); Mean Corpuscular Hemoglobin 19.9 pg (27.0-33.0); Mean Corpuscular Volume 68.9 fL (80.0-98.0); Monocytes Absolute Auto 0.8 X10*3/uL (0.1-1.2); Monocytes Percent Auto 8.9 % (2-11); Neutrophils Absolute Auto 6.3 x10*3/uL (2.0-8.3); Platelet Count 163 X10*3/uL (160-400); Red Blood Count 4.53 X10*6/uL (4.20-5.50); Red Cell Distribution Width 21.4 % (11.0-16.0); SCAN SMEAR FLAG 1; White Blood Count 8.5 X10*3/uL (4.8-10.8)
[2022-09-20 13:15] LABS: MANUAL DIFF FLAG NO; PLT ABN DIST 1
--- NOTE | 2022-09-20 14:09 | MHC.CM.PN ---
Patient planned for BKA today. Emotional support and encouragement provided. DP STR via BLS.
--- NOTE | 2022-09-20 14:28 | P.CDIM_ITS ---
PROVIDER RESPONSE TEXT: To clarify, the appropriate diagnosis supported by the clinical indicators: No, _Cellulitis is not related to / associated with / due to Diabetes QUERY TEXT: PHYSICIAN'S DOCUMENTATION REQUEST Date of Query: 09/20/2022 11:28 AM EDT Patient Name: Keisha Chadwick Admit Date: 09/15/2022 Dear Elizabeth Gracia, A review of the medical record indicates additional documentation may be needed. Please review below and update the documentation accordingly. Documentation includes the conditions of Cellulitis and the Diabetes Clinical Indicators: Progress note 09/16 - Cellulitis of left lower extremity/infected diabetic foot wound Surgery - Cellulitis extending up the leg with a nonhealing ulcer at the heel. Zosyn, Cefepime, Insulin ID 09/15 - Reason for consult: chronic leg wounds, cellulitis Please clarify the relationship between these conditions: Due to and/or Associated with Yes, Cellulitis is related to / associated with / due to Diabetes No, _Cellulitis is not related to / associated with / due to Diabetes Other (explain) Clinically unable to determine (explain) Thank you, Mahi Nielson, CCS, CDIS Use of terms such as suspected, likely, concern for, or probable (associated with a specific diagnosi s that is being evaluated, monitored, or treated as if it exists) are acceptable and can be coded in the inpatient se tting, when documented at the time of discharge. Please use your independent medical judgment in providing your response. THIS QUERY IS PART OF THE PERMANENT MEDICAL RECORD
--- NOTE | 2022-09-20 16:07 | P.OP_ITS ---
Operative Note Operative Note Date of Service: 09/20/22 Narrative: Preoperative diagnosis:Diabetic foot ulcer left foot Postoperative diagnosis: same Procedure: left below-knee amputation Surgeon: Luis Miguel Cantu MD Production Lapping Machine Operator: none Anesthesia: regional block Indications for procedure: 52-year-old female patient with history of diabetes and a nonhealing in a chronic ulcer of the heel with extensive skin necrosis and abscess. Operative findings: Edematous left leg with viable muscle. No abscess appreciated at site of amputation. Specimen: Left below-knee amputation Estimated blood loss: 5 mL Complications: none Procedure details: patient was brought to the OR placed in a supine position. The patient was given light sedation and a regional block applied by the anesthesia department. The patient's left leg was prepped and draped in a sterile fashion. A surgical time-out was called the consent confirmed. Patient was receiving preoperative antibiotics and Venodyne boots were in place . A esmar was used to exsanguinate the left leg and a tourniquet in inflated to 250 mmHg. A and the fishmouth type incision was then created with a scalpel the mid to lower 3rd of the calf on the left side. This was carried out through subcutaneous tissue using electrocautery down to the tibia and fibula. Muscle was dissected off using electrocautery. Vessels and nerve were individually ligated with 0 Polysorb suture and 2-0 silk ties. muscles were then divided cre ating a long posterior flap. Dissection was continued down to periosteum. A periosteal elevator was then used to dissect more proximal on the tibia and fibula. Bone saw was then used to divide both the tibia and fibula. Remaining it attachments were then divided using electrocautery and the specimen passed off the table and sent to pathology for further examination. The wounds were again checked for hemostasis. Wounds were irrigated with saline solution and suctioned dry. Tourniquet was taken down after 40 minutes. Muscle fascia from the posterior flap was secured to the anterior flap using interrupted 2-0 Polysorb sutures. Dermis was reapproximated using interrupted 3-0 Polysorb sutures. Skin was then closed using skin kyle. Sterile dressings consisting of fluff gauze, ABD pad, Kerlix and Bruno bandage was then applied . The patient tolerated the procedure well. Sponge, insert, and needle counts reported as correct. The patient was transferred to PACU in stable condition.
[2022-09-20 16:32] LABS: Glucose, Whole Blood 66 mg/dL (60-115)
[2022-09-20 16:58] LABS: Glucose, Whole Blood 70 mg/dL (60-115)
[2022-09-20] MEDS: Furosemide 40 MG TABLET PO (17:06)
[2022-09-20] MEDS: Aspirin Enteric Coated 81 MG TABLET.DR PO (17:06)
[2022-09-20 19:31] LABS: Hematocrit 31.1 % (37.0-47.0); Hemoglobin 8.9 g/dl (12.0-16.0); Mean Corpuscular HGB Conc 28.6 g/dl (31.0-35.0); Mean Corpuscular Hemoglobin 19.6 pg (27.0-33.0); Mean Corpuscular Volume 68.4 fL (80.0-98.0); PLT CLUMP 1; Red Blood Count 4.55 X10*6/uL (4.20-5.50); Red Cell Distribution Width 21.4 % (11.0-16.0)
[2022-09-20 19:54] LABS: Platelet Count 153 X10*3/uL (160-400); White Blood Count 6.9 X10*3/uL (4.8-10.8)
[2022-09-20] MEDS: Montelukast Sodium 10 MG TABLET PO (20:01)
[2022-09-20] MEDS: Atorvastatin Calcium 80 MG TABLET PO (20:01)
[2022-09-20] MEDS: Ticagrelor 90 MG TABLET PO (20:01)
[2022-09-20 20:34] LABS: Glucose, Whole Blood 212 mg/dL (60-115)
[2022-09-20] MEDS: Insulin Lispro 100 UNIT/ML 3 ML VIAL SUBCUT (21:15)
[2022-09-21] MEDS: Morphine Sulfate 4 MG/ML CARTRIDGE IVPUSH ×2 (01:52→05:25)
[2022-09-21] MEDS: Lactated Ringers 1,000 ML 100 ML IVCONT (01:53)
[2022-09-21] MEDS: cefEPime HCl 2 GM in 0.9 % Sodium Chloride 50 ML IV ×2 (02:18→10:50)
[2022-09-21 03:29] VITALS: BP 119/62; PULSE 93; RESP 20; TEMP 36.4; O2SAT 96
[2022-09-21] MEDS: oxyCODONE HCl Immed Release 5 MG TABLET PO ×2 (03:54→10:50)
[2022-09-21] MEDS: Enoxaparin Sodium 40 MG/0.4 ML SYRINGE SUBCUT (05:25)
[2022-09-21 06:40] LABS: Creatinine Clr Calc Pharmacy 68.3; Estimated Glomerular Filt Rate 60
[2022-09-21 07:17] VITALS: BP 138/72; PULSE 94; RESP 18; TEMP 36.8; O2SAT 97
[2022-09-21 07:28] LABS: Glucose, Whole Blood 142 mg/dL (60-115)
[2022-09-21] MEDS: carvediloL 3.125 MG TABLET PO (08:04)
[2022-09-21] MEDS: Gabapentin 100 MG CAPSULE 200 MG PO (08:04)
[2022-09-21] MEDS: Ticagrelor 90 MG TABLET PO (08:04)
[2022-09-21] MEDS: Docusate Sodium 100 MG CAPSULE PO (08:04)
[2022-09-21] MEDS: Furosemide 40 MG TABLET PO (08:04)
[2022-09-21] MEDS: Insulin Glargine,Hum.rec.anlog 100 UNIT/ML 10 ML VIAL 20 UNIT SUBCUT (08:05)
[2022-09-21] MEDS: Aspirin Enteric Coated 81 MG TABLET.DR PO (08:06)
--- NOTE | 2022-09-21 08:06 | P.PNIM_ITS ---
Subjective Subjective Date of Service: 09/21/22 Physical Exam Vital Signs: Vital Signs: Last Vital Signs Temp 98.2 F 09/21/22 07:17 Pulse 94 09/21/22 07:17 Resp 18 09/21/22 07:17 BP 138/72 09/21/22 07:17 Pulse Ox 97 09/21/22 07:17 O2 Del Method Room Air 09/21/22 07:17 O2 Flow Rate 2 09/21/22 03:29 BMI result Body Mass Index 31.5 Objective Data Active Medications Acetaminophen (Acetaminophen 325 Mg Tablet) 650 mg PO Q6H PRN PRN Reason: Pain, Mild (Pain Scale 1-3) Last Admin: 09/17/22 21:33 Dose: 650 mg Documented By: CHERY Albuterol Sulfate (Albuterol Sulfate (0.083%) 2.5 Mg/3 Ml Vial.Chang) 2.5 mg INHALE Q6H PRN PRN Reason: Wheezing Last Admin: 09/20/22 12:35 Dose: 2.5 mg Documented By: HARVEY Aspirin (Aspirin Enteric Coated 81 Mg Tablet.) 81 mg PO DAILY [facility] Last Admin: 09/20/22 17:06 Dose: 81 mg Documented By: MELANIE Comments: given late d/t patient having surgery Atorvastatin Calcium (Atorvastatin Calcium 80 Mg Tablet) 80 mg PO BEDTIME [facility] Last Admin: 09/20/22 20:01 Dose: 80 mg Documented By: SEGUN Carvedilol (Carvedilol 3.125 Mg Tablet) 3.125 mg PO BID [facility]; Protocol Last Admin: 09/20/22 20:01 Dose: 3.125 mg Documented By: SEGUN Docusate Sodium (Docusate Sodium 100 Mg Capsule) 100 mg PO DAILY [facility] Last Admin: 09/20/22 07:53 Dose: 100 mg Documented By: MELANIE Enoxaparin Sodium (Enoxaparin Sodium 40 Mg/0.4 Ml Syringe) 40 mg SUBCUT Q24H [facility] Last Admin: 09/21/22 05:25 Dose: 40 mg Documented By: SEGUN Furosemide (Furosemide 40 Mg Tablet) 40 mg PO BID@0900,1800 [facility]; Protocol Last Admin: 09/20/22 17:06 Dose: 40 mg Documented By: MELANIE Gabapentin (Gabapentin 100 Mg Capsule) 200 mg PO BID [facility] Last Admin: 09/20/22 20:01 Dose: 200 mg Documented By: SEGUN Glucose (Glucose Gel 15 Gm Gel..Gram.) 15 gm PO Q15M PRN; Protocol PRN Reason: per Hypoglycemia Standing Ord. Dextrose (D10) 250 mls @ 750 mls/hr IV Q15M PRN; Protocol PRN Reason: per Hypoglycemia Standing Ord. Cefepime HCl 2 gm/ Sodium (Chloride) 50 mls @ 100 mls/hr IV Q8H [facility] Last Infusion: 09/21/22 03:29 Dose: 0 mls/hr Documented By: SEGUN Vancomycin HCl 1,250 mg/ (Sodium Chloride) 250 mls @ 166.667 mls/hr IV Q24H [facility] Last Infusion: 09/20/22 16:21 Dose: 0 mls/hr Documented By: MELANIE Lactated Ringer's (Lr) 1,000 mls @ 100 mls/hr IVCONT .Q10H [facility] Last Admin: 09/21/22 01:53 Dose: 100 mls/hr Documented By: SEGUN Insulin Glargine (Insulin Glargine,Hum.Rec.Anlog 100 Unit/Ml 10 Ml Vial) 20 un it SUBCUT DAILY [facility] Last Admin: 09/20/22 07:52 Dose: 20 unit Documented By: MELANIE Insulin Human Lispro (Insulin Lispro 100 Unit/Ml 3 Ml Vial) 0 unit SUBCUT QIDACHS [facility]; Protocol Last Admin: 09/21/22 07:30 Dose: Not Given Documented By: ROMERO Non-Admin Reason: No Insulin Coverage Montelukast Sodium (Montelukast Sodium 10 Mg Tablet) 10 mg PO BEDTIME [facility] Last Admin: 09/20/22 20:01 Dose: 10 mg Documented By: SEGUN Morphine Sulfate (Morphine Sulfate 4 Mg/Ml Cartridge) 2 mg IVPUSH Q3H PRN; Protocol PRN Reason: Pain, Severe (Pain Scale 7-10) Last Admin: 09/20/22 21:17 Dose: 2 mg Documented By: SEGUN Comments: PT STILL IN PAIN GIVEN ADDITIONAL 2 MG TO MAKE TOTAL OF 4 MG Morphine Sulfate (Morphine Sulfate 4 Mg/Ml Cartridge) 4 mg IVPUSH Q3H PRN; Protocol PRN Reason: Pain, Severe (Pain Scale 7-10) Last Admin: 09/21/22 05:25 Dose: 4 mg Documented By: SEGUN Nicotine Polacrilex (Nicotine Polacrilex 2 Mg Gum) 2 mg BUCCAL Q2H PRN PRN Reason: Nicotine Cravings Last Admin: 09/16/22 16:34 Dose: 2 mg Documented By: BILL Ondansetron HCl (Ondansetron Hcl 4 Mg/2 Ml Vial) 4 mg IVPUSH Q8H PRN PRN Reason: Nausea and Vomiting Oxycodone HCl (Oxycodone Hcl Immed Release 5 Mg Tablet) 5 mg PO Q6H PRN PRN Reason: Pain, Moderate (Pain Scale 4-6 Last Admin: 09/21/22 03:54 Dose: 5 mg Documented By: SEGUN Pharmacy Consult (Consult Rx Vancomycin Dosing) 1 each MISCELLANE DAILY PRN PRN Reason: Consult order Pharmacy Consult (Consult Rx Perform Med Rec) 1 each MISCELLANE ONCE PRN PRN Reason: Consult order Polyethylene Glycol (Polyethylene Glycol 3350 17 Gm Powd.Pack) 17 gm PO DAILY PRN PRN Reason: Constipation Sodium Chloride (0.9 % Sodium Chloride Flush 3 Ml Syringe) 3 ml IVFLUSH QSHIFT [facility] Last Admin: 09/21/22 01:06 Dose: Not Given Documented By: SEGUN Non-Admin Reason: IV Running Ticagrelor (Ticagrelor 90 Mg Tablet) 90 mg PO BID [facility] Last Admin: 09/20/22 20:01 Dose: 90 mg Documented By: SEGUN Labs 09/20/22 18:57 09/21/22 05:46 Labs: Laboratory Results - last 24 hr 09/20/22 09/20/22 09/20/22 11:11 13:00 13:06 MCV 68.9 L MCH 19.9 L MCHC 28.8 L RDW 21.4 H Plt Count 163 MPV Not Reportable Immature Gran % (Auto) 0.6 H Neut % (Auto) 74.0 H Lymph % (Auto) 15.0 L [place] % (Auto) 8.9 Eos % (Auto) 0.9 Baso % (Auto) 0.6 Lymph # (Auto) 1.3 [place] # (Auto) 0.8 Eos # (Auto) 0.1 Baso # (Auto) 0.1 Abs Immat Gran (auto) 0.05 H Absolute Neuts (auto) 6.3 Absolute Nucleated RBC 0.000 Nucleated RBC % (auto) 0.0 Estim Creat Clear Calc Estimated GFR POC Glucose 88 76 Blood Type Antibody Screen 09/20/22 09/20/22 09/20/22 13:06 16:21 16:53 MCV MCH MCHC RDW Plt Count MPV Immature Gran % (Auto) Neut % (Auto) Lymph % (Auto) [place] % (Auto) Eos % (Auto) Baso % (Auto) Lymph # (Auto) [place] # (Auto) Eos # (Auto) Baso # (Auto) Abs Immat Gran (auto) Absolute Neuts (auto) Absolute Nucleated RBC Nucleated RBC % (auto) Estim Creat Clear Calc Estimated GFR POC Glucose 66 70 Blood Type A Positive Antibody Screen NEGATIVE 09/20/22 09/20/22 09/21/22 18:57 20:28 05:46 MCV 68.4 L MCH 19.6 L MCHC 28.6 L RDW 21.4 H Plt Count 153 L MPV Not Reportable Immature Gran % (Auto) Neut % (Auto) Lymph % (Auto) [place] % (Auto) Eos % (Auto) Baso % (Auto) Lymph # (Auto) [place] # (Auto) Eos # (Auto) Baso # (Auto) Abs Immat Gran (auto) Absolute Neuts (auto) Absolute Nucleated RBC 0.000 Nucleated RBC % (auto) 0.0 Estim Creat Clear Calc 68.3 Estimated GFR 60 POC Glucose 212 H Blood Type Antibody Screen 09/21/22 07:22 MCV MCH MCHC RDW Plt Count MPV Immature Gran % (Auto) Neut % (Auto) Lymph % (Auto) [place] % (Auto) Eos % (Auto) Baso % (Auto) Lymph # (Auto) [place] # (Auto) Eos # (Auto) Baso # (Auto) Abs Immat Gran (auto) Absolute Neuts (auto) Absolute Nucleated RBC Nucleated RBC % (auto) Estim Creat Clear Calc Estimated GFR POC Glucose 142 H Blood Type Antibody Screen Assessment and Plan Time Spent With Patient Time: Total time managing care of this patient today ____ minutes. Quality Stroke Does the patient have a stroke diagnosis?: No VTE Prior VTE?: No VTE Risk Level:: Medical - moderate - high VTE Device Contraindication: Treatment Not Indicated VTE Drug Contraindication: N/A - Med Ordered
[2022-09-21] MEDS: Morphine Sulfate 4 MG/ML CARTRIDGE 2 MG IVPUSH (08:15)
[2022-09-21 08:25] LABS: MANUAL DIFF FLAG NO
[2022-09-21 08:29] LABS: Basophils Percent Auto 0.4 % (0-2); Eosinophils Percent Auto 0.4 % (0-4); Hemoglobin 8.3 g/dl (12.0-16.0); Imm Gran Abs Auto 0.05 X10*3/uL (0.00-0.03); Imm Gran Pct Auto 0.5 % (0.0-0.4); Lymphocytes Absolute Auto 0.9 X10*3/uL (1.2-4.9); Lymphocytes Percent Auto 8.4 % (20-40); Mean Corpuscular HGB Conc 28.6 g/dl (31.0-35.0); Mean Corpuscular Hemoglobin 19.3 pg (27.0-33.0); Mean Corpuscular Volume 67.6 fL (80.0-98.0); Monocytes Absolute Auto 0.9 X10*3/uL (0.1-1.2); Monocytes Percent Auto 8.5 % (2-11); Neutrophils Absolute Auto 8.9 x10*3/uL (2.0-8.3); Neutrophils Percent Auto 81.8 % (45-73); Platelet Count 138 X10*3/uL (160-400); Red Blood Count 4.29 X10*6/uL (4.20-5.50); Red Cell Distribution Width 21.6 % (11.0-16.0); White Blood Count 10.9 X10*3/uL (4.8-10.8)
[2022-09-21 08:35] LABS: Anion Gap 13 (12-20); Blood Urea Nitrogen 18 mg/dL (9-16); Calcium 8.3 mg/dL (8.4-10.2); Carbon Dioxide 31 mmol/L (22-29); Chloride 102 mmol/L (96-108); Creatinine Clr Calc Pharmacy 70.5; Estimated Glomerular Filt Rate > 60; Glucose Random 134 mg/dL (60-115); Potassium 4.5 mmol/L (3.3-5.1); Sodium 141 mmol/L (135-145)
[2022-09-21 09:37] LABS: Vancomycin Random 16.6 mcg/mL (15-20)
--- NOTE | 2022-09-21 09:44 | HE.PHANOTE ---
Vancomycin Dosing Addendum Patients level came back this morning at 16.6. Will continue current dose of 1250 mg Q24H. Next draw is 09/22@ 0900 after one dose as patients renal is starting to rise. Predicted AUC 556 mg/L/hr
[2022-09-21 10:52] VITALS: BP 138/72; PULSE 94; O2SAT 97
--- NOTE | 2022-09-21 11:01 | PM.PNGS ---
Subjective Subjective Date of Service: 09/21/22 Interval history: C/o severe pain at amp site, analgesics wearing off too quickly. She then states she is going home today no matter what. Was OOB this morning with walker and ambulated to commode by herself. Also seen by PT and did well. Physical Exam Vital Signs: Vital Signs: Last Vital Signs Temp 98.2 F 09/21/22 07:17 Pulse 94 09/21/22 10:52 Resp 18 09/21/22 07:17 BP 138/72 09/21/22 10:52 Pulse Ox 97 09/21/22 10:52 O2 Del Method Room Air 09/21/22 07:17 O2 Flow Rate 2 09/21/22 03:29 BMI result Body Mass Index 31.5 Const: General: comfortable, no acute distress and alert Resp: Effort & Inspection: normal respiratory effort Extrem: Other: left BKA dressing clean, good ROM at knee Objective Data Active Medications Acetaminophen (Acetaminophen 325 Mg Tablet) 650 mg PO Q6H PRN PRN Reason: Pain, Mild (Pain Scale 1-3) Last Admin: 09/17/22 21:33 Dose: 650 mg Documented By: CHERY Albuterol Sulfate (Albuterol Sulfate (0.083%) 2.5 Mg/3 Ml Vial.[facility]) 2.5 mg INHALE Q6H PRN PRN Reason: Wheezing Last Admin: 09/20/22 12:35 Dose: 2.5 mg Documented By: HARVEY Aspirin (Aspirin Enteric Coated 81 Mg Tablet.) 81 mg PO DAILY [facility] Last Admin: 09/21/22 08:06 Dose: 81 mg Documented By: ROMERO Atorvastatin Calcium (Atorvastatin Calcium 80 Mg Tablet) 80 mg PO BEDTIME [facility] Last Admin: 09/20/22 20:01 Dose: 80 mg Documented By: SEGUN Carvedilol (Carvedilol 3.125 Mg Tablet) 3.125 mg PO BID [facility]; Protocol Last Admin: 09/21/22 08:04 Dose: 3.125 mg Documented By: ROMERO Docusate Sodium (Docusate Sodium 100 Mg Capsule) 100 mg PO DAILY [facility] Last Admin: 09/21/22 08:04 Dose: 100 mg Documented By: ROMERO Enoxaparin Sodium (Enoxaparin Sodium 40 Mg/0.4 Ml Syringe) 40 mg SUBCUT Q24H [facility] Last Admin: 09/21/22 05:25 Dose: 40 mg Documented By: SEGUN Furosemide (Furosemide 40 Mg Tablet) 40 mg PO BID@0900,1800 [facility]; Protocol Last Admin: 09/21/22 08:04 Dose: 40 mg Documented By: ROMERO Gabapentin (Gabapentin 100 Mg Capsule) 200 mg PO BID [facility] Last Admin: 09/21/22 08:04 Dose: 200 mg Documented By: ROMERO Glucose (Glucose Gel 15 Gm Gel..Gram.) 15 gm PO Q15M PRN; Protocol PRN Reason: per Hypoglycemia Standing Ord. Dextrose (D10) 250 mls @ 750 mls/hr IV Q15M PRN; Protocol PRN Reason: per Hypoglycemia Standing Ord. Cefepime HCl 2 gm/ Sodium (Chloride) 50 mls @ 100 mls/hr IV Q8H [facility] Last Admin: 09/21/22 10:50 Dose: 100 mls/hr Documented By: TRE Vancomycin HCl 1,250 mg/ (Sodium Chloride) 250 mls @ 166.667 mls/hr IV Q24H [facility] Last Infusion: 09/20/22 16:21 Dose: 0 mls/hr Documented By: MELANIE Lactated Ringer's (Lr) 1,000 mls @ 100 mls/hr IVCONT .Q10H [facility] Last Admin: 09/21/22 01:53 Dose: 100 mls/hr Documented By: SEGUN Insulin Glargine (Insulin Glargine,Hum.Rec.Anlog 100 Unit/Ml 10 Ml Vial) 20 unit SUBCUT DAILY [facility] Last Admin: 09/21/22 08:05 Dose: 20 unit Documented By: ROMERO Insulin Human Lispro (Insulin Lispro 100 Unit/Ml 3 Ml Vial) 0 unit SUBCUT QIDACHS [facility]; Protocol Last Admin: 09/21/22 07:30 Dose: Not Given Documented By: ROMERO Non-Admin Reason: No Insulin Coverage Montelukast Sodium (Montelukast Sodium 10 Mg Tablet) 10 mg PO BEDTIME [facility] Last Admin: 09/20/22 20:01 Dose: 10 mg Documented By: SEGUN Morphine Sulfate (Morphine Sulfate 4 Mg/Ml Cartridge) 2 mg IVPUSH Q3H PRN; Protocol PRN Reason: Pain, Severe (Pain Scale 7-10) Last Admin: 09/21/22 08:15 Dose: 2 mg Documented By: ROMERO Morphine Sulfate (Morphine Sulfate 4 Mg/Ml Cartridge) 4 mg IVPUSH Q3H PRN; Protocol PRN Reason: Pain, Severe (Pain Scale 7-10) Last Admin: 09/21/22 05:25 Dose: 4 mg Documented By: SEGUN Nicotine Polacrilex (Nicotine Polacrilex 2 Mg Gum) 2 mg BUCCAL Q2H PRN PRN Reason: Nicotine Cravings Last Admin: 09/16/22 16:34 Dose: 2 mg Documented By: BILL Ondansetron HCl (Ondansetron Hcl 4 Mg/2 Ml Vial) 4 mg IVPUSH Q8H PRN PRN Reason: Nausea and Vomiting Oxycodone HCl (Oxycodone Hcl Immed Release 5 Mg Tablet) 5 mg PO Q6H PRN PRN Reason: Pain, Moderate (Pain Scale 4-6 Last Admin: 09/21/22 10:50 Dose: 5 mg Documented By: TRE Pharmacy Consult (Consult Rx Vancomycin Dosing) 1 each MISCELLANE DAILY PRN PRN Reason: Consult order Pharmacy Consult (Consult Rx Perform Med Rec) 1 each MISCELLANE ONCE PRN PRN Reason: Consult order Polyethylene Glycol (Polyethylene Glycol 3350 17 Gm Powd.Pack) 17 gm PO DAILY PRN PRN Reason: Constipation Sodium Chloride (0.9 % Sodium Chloride Flush 3 Ml Syringe) 3 ml IVFLUSH QSHIFT [facility] Last Admin: 09/21/22 08:29 Dose: Not Given Documented By: ROMERO Non-Admin Reason: IV Running Ticagrelor (Ticagrelor 90 Mg Tablet) 90 mg PO BID [facility] Last Admin: 09/21/22 08:04 Dose: 90 mg Documented By: ROMERO Labs 09/21/22 05:46 09/21/22 05:46 Labs: Laboratory Results - last 24 hr 09/20/22 09/20/22 09/20/22 11:11 13:00 13:06 MCV 68.9 L MCH 19.9 L MCHC 28.8 L RDW 21.4 H Plt Count 163 MPV Not Reportable Immature Gran % (Auto) 0.6 H Neut % (Auto) 74.0 H Lymph % (Auto) 15.0 L [place] % (Auto) 8.9 Eos % (Auto) 0.9 Baso % (Auto) 0.6 Lymph # (Auto) 1.3 [place] # (Auto) 0.8 Eos # (Auto) 0.1 Baso # (Auto) 0.1 Abs Immat Gran (auto) 0.05 H Absolute Neuts (auto) 6.3 Absolute Nucleated RBC 0.000 Nucleated RBC % (auto) 0.0 Anion Gap Estim Creat Clear Calc Estimated GFR POC Glucose 88 76 Random Glucose Calcium Random Vancomycin Blood Type Antibody Screen 09/20/22 09/20/22 09/20/22 13:06 16:21 16:53 MCV MCH MCHC RDW Plt Count MPV Immature Gran % (Auto) Neut % (Auto) Lymph % (Auto) [place] % (Auto) Eos % (Auto) Baso % (Auto) Lymph # (Auto) [place] # (Auto) Eos # (Auto) Baso # (Auto) Abs Immat Gran (auto) Absolute Neuts (auto) Absolute Nucleated RBC Nucleated RBC % (auto) Anion Gap Estim Creat Clear Calc Estimated GFR POC Glucose 66 70 Random Glucose Calcium Random Vancomycin Blood Type A Positive Antibody Screen NEGATIVE 09/20/22 09/20/22 09/21/22 18:57 20:28 05:46 MCV 68.4 L MCH 19.6 L MCHC 28.6 L RDW 21.4 H Plt Count 153 L MPV Not Reportable Immature Gran % (Auto) Neut % (Auto) Lymph % (Auto) [place] % (Auto) Eos % (Auto) Baso % (Auto) Lymph # (Auto) [place] # (Auto) Eos # (Auto) Baso # (Auto) Abs Immat Gran (auto) Absolute Neuts (auto) Absolute Nucleated RBC 0.000 Nucleated RBC % (auto) 0.0 Anion Gap Estim Creat Clear Calc 68.3 Estimated GFR 60 POC Glucose 212 H Random Glucose Calcium Random Vancomycin Blood Type Antibody Screen 09/21/22 09/21/22 09/21/22 05:46 05:46 07:22 MCV 67.6 L MCH 19.3 L MCHC 28.6 L RDW 21.6 H Plt Count 138 L MPV Not Reportable Immature Gran % (Auto) 0.5 H Neut % (Auto) 81.8 H Lymph % (Auto) 8.4 L [place] % (Auto) 8.5 Eos % (Auto) 0.4 Baso % (Auto) 0.4 Lymph # (Auto) 0.9 L [place] # (Auto) 0.9 Eos # (Auto) 0.0 Baso # (Auto) 0.0 Abs Immat Gran (auto) 0.05 H Absolute Neuts (auto) 8.9 H Absolute Nucleated RBC 0.000 Nucleated RBC % (auto) 0.0 Anion Gap 13 Estim Creat Clear Calc 70.5 Estimated GFR > 60 POC Glucose 142 H Random Glucose 134 H Calcium 8.3 L Random Vancomycin Blood Type Antibody Screen 09/21/22 08:47 MCV MCH MCHC RDW Plt Count MPV Immature Gran % (Auto) Neut % (Auto) Lymph % (Auto) [place] % (Auto) Eos % (Auto) Baso % (Auto) Lymph # (Auto) [place] # (Auto) Eos # (Auto) Baso # (Auto) Abs Immat Gran (auto) Absolute Neuts (auto) Absolute Nucleated RBC Nucleated RBC % (auto) Anion Gap Estim Creat Clear Calc Estimated GFR POC Glucose Random Glucose Calcium Random Vancomycin 16.6 Blood Type Antibody Screen Procedures Date of Service Date of Service: 09/21/22 Progress Note: A&P Assessment and plan (1) 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: Status: Acute (2) Status post below-knee amputation of left lower extremity: Status: Acute Plan 52 year old female with history of diabetes and a nonhealing in a chronic ulcer of the heel with extensive skin necrosis and abscess now POD #1 s/p left BKA. She is doing well post op but c/o severe pain requiring both IV and PO analgesics. VSS. Left BKA dressing clean. Seen by PT who rec home with PT services when medically stable. She was strongly encouraged to stay in the hospital for appropriate post operative care, pain control. She was educated on potential complications that can occur incuding poor healing, infection, need for further surgery, inability to be fit for prosthesis if she develops contracture. She expressed understanding and continued to say she was leaving. If she is refusing and leaves AMA, will need f/u in office in the next few days for wound check, dressing change. Time Spent With Patient Time: Total time managing care of this patient today ____ minutes. Quality Stroke Does the patient have a stroke diagnosis?: No VTE Prior VTE?: No VTE Risk Level:: Medical - moderate - high VTE Device Contraindication: Treatment Not Indicated VTE Drug Contraindication: N/A - Med Ordered
--- NOTE | 2022-09-21 11:06 | MHC.CM.PN ---
Female 52 S/P L BKA POD#1 is discharged today to home with home health services. Preference for Home health care ontained and referral sent to [facility]. They declined the case. [facility] does not accept [facility] insurance. [facility] will provide Home services. Patient has arranged for transportation home.
[2022-09-21 11:25] LABS: Glucose, Whole Blood 146 mg/dL (60-115)
[2022-09-21] MEDS: vancomycin HCL 1,250 MG in 0.9 % Sodium Chloride 250 ML 166.67 MG IV (11:26)
--- NOTE | 2022-09-21 11:38 | P.F2F_ITS ---
Service Date Service Date: 09/21/22 Encounter Date of encounter: 09/21/22 Reasons for Services Signs and symptoms assessed: Patient seen and examined at bedside. Was evaluated by PT, will require home health care. Reason for prison: wound care and postoperative assessment and/or care Reason for physical therapy: home safety and mobility Homebound: Leaving the home is medically contraindicated at this time without the asist of a device and/or another person due th the listed conditions above and below. Reason homebound: unsteady gait / fall risk, pain with ambulation, pain with transfers, poor balance / fall risk and unable to drive Certification: Based on the above findings, I certify that this patient is confined to the home and needs intermittent prison care, physical therapy and/or speech therapy, or continues to need occupational therapy. The patient is under my care, and I have initiated the establishment of the plan of care. The patient will be followed by a physician who will periodically review the plan of care. Time Spent With Patient Time: Total time managing care of this patient today ____ minutes.
--- NOTE | 2022-09-21 11:58 | PM.DS ---
DS: Providers Provider Date of Service: 09/21/22 Date of admission: 09/15/22 01:50 Primary care physician: Emilie Dangelo MD Consults: 09/15/22 01:49 Consult to General Surgery Routine Consulting Provider: [facility] General Surgeons Reason for consultation: heal abscess. I&D Has provider been notified: No 09/15/22 06:36 Consult to Infectious Diseases Routine Consulting Provider: [facility] Infectious Disease Reason for consultation: diabetic foot wound Has provider been notified: No 09/15/22 14:53 Consult to Cardiology Routine Consulting Provider: [facility] [place] Cardiovascular Services Reason for consultation: recent STEMI, noncompliant with meds; surgery planned for am DS: Diagnosis Discharge Diagnosis (1) 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: Status: Acute (2) Status post below-knee amputation of left lower extremity: Status: Acute DS: Summary Hospital Course Hospital Course: From [facility] on 09/15 52-year-old female with past medical history of asthma/COPD, heart failure with reduced ejection fraction, diabetes, and multiple diabetic foot wound including chronic osteomyelitis, as well as a large heel wound who was admitted on 09/12 and was planned for I and D by General surgery, but unfortunately left against medical advice now returns today with complaints of worsening pain and drainage from her heel wound crying and stating that she is willing to stay this time.? Patient stated that she left AMA due to a family emergency but is now willing to stay and received the care that she needs. She reports chronic shortness of breath with cough and sputum production that has not worsened Hospital course patient found to have cellulitis of left lower extremity as well as infected diabetic foot wound with recommendation for below-knee amputation after undergoing nerve block given her high cardiac risk. Patient was also evaluated by Infectious Disease which recommended IV antibiotics vanc and cefepime while inpatient. Patient had below knee amputation on 09/20 2022 with no complications. This morning she is alert oriented, in states that she wants to go home. Patient refusing to go to rehab and wants to go home instead. Pain is well controlled. Patient will be sent home on cefuroxime and doxycycline for 14 days per Infectious Disease consult. Patient also had a recent STEMI status post drug-eluting stent to the proximal LAD in August 2022 with ischemic cardiomyopathy and ejection fraction of 15%, patient was noncompliant with medications, but was re-loaded with Brilinta, at this time will continue Brilinta, aspirin, carvedilol, as well as statin. Scripts for these medications have been provided to the patient. In regards to her COPD patient was not in exacerbation, and her Lasix were continued. Patient will be discharged home with home health care Time Spent with Patient Time attestation: Total time managing care of this patient today ____ minutes. Discharge coordination time: Greater than 30 minutes Quality: Safe Use of Opioids Does Pt have an Active Cancer Diagnosis on the Problem List?: No Quality: Stroke Does the patient have a stroke diagnosis?: No Physical Exam Vital Signs: Vital Signs: Last Vital Signs Temp 98.2 F 09/21/22 07:17 Pulse 94 09/21/22 10:52 Resp 18 09/21/22 07:17 BP 138/72 09/21/22 10:52 Pulse Ox 97 09/21/22 10:52 O2 Del Method Room Air 09/21/22 07:17 O2 Flow Rate 2 09/21/22 03:29 BMI result Body Mass Index 31.5 Const: General: cooperative and no acute distress GI: Other: abd is soft nontender Extrem: Other: left below-knee amputation, right foot has clean dressing DS: Data Data Completed and Pending Completed studies during hospitalization [Text1]: Procedures Drainage of Left Foot Skin, External Approach (11/18/21) Excision of Left Foot Subcutaneous Tissue and Fascia, Open Approach (11/18/21) Insertion of Infusion Device into Superior Vena Cava, Percutaneous Approach (08/21/21) Transfusion of Nonautologous Red Blood Cells into Peripheral Vein, Percutaneous Approach (06/19/22) Pending studies at discharge: Pending at discharge 09/20/22 14:58 Surgical [PTH] Routine Labs on day of discharge: Laboratory Results - last 24 hr 09/20/22 09/20/22 09/20/22 13:00 13:06 13:06 WBC 8.5 RBC 4.53 Hgb 9.0 L Hct 31.2 L MCV 68.9 L MCH 19.9 L MCHC 28.8 L RDW 21.4 H Plt Count 163 MPV Not Reportable Immature Gran % (Auto) 0.6 H Neut % (Auto) 74.0 H Lymph % (Auto) 15.0 L [place] % (Auto) 8.9 Eos % (Auto) 0.9 Baso % (Auto) 0.6 Lymph # (Auto) 1.3 [place] # (Auto) 0.8 Eos # (Auto) 0.1 Baso # (Auto) 0.1 Abs Immat Gran (auto) 0.05 H Absolute Neuts (auto) 6.3 Absolute Nucleated RBC 0.000 Nucleated RBC % (auto) 0.0 Sodium Potassium Chloride Carbon Dioxide Anion Gap BUN Creatinine Estim Creat Clear Calc Estimated GFR POC Glucose 76 Random Glucose Calcium Random Vancomycin Blood Type A Positive Antibody Screen NEGATIVE 09/20/22 09/20/22 09/20/22 16:21 16:53 18:57 WBC 6.9 RBC 4.55 Hgb 8.9 L Hct 31.1 L MCV 68.4 L MCH 19.6 L MCHC 28.6 L RDW 21.4 H Plt Count 153 L MPV Not Reportable Immature Gran % (Auto) Neut % (Auto) Lymph % (Auto) [place] % (Auto) Eos % (Auto) Baso % (Auto) Lymph # (Auto) [place] # (Auto) Eos # (Auto) Baso # (Auto) Abs Immat Gran (auto) Absolute Neuts (auto) Absolute Nucleated RBC 0.000 Nucleated RBC % (auto) 0.0 Sodium Potassium Chloride Carbon Dioxide Anion Gap BUN Creatinine Estim Creat Clear Calc Estimated GFR POC Glucose 66 70 Random Glucose Calcium Random Vancomycin Blood Type Antibody Screen 09/20/22 09/21/22 09/21/22 20:28 05:46 05:46 WBC 10.9 H RBC 4.29 Hgb 8.3 L Hct 29.0 L MCV 67.6 L MCH 19.3 L MCHC 28.6 L RDW 21.6 H Plt Count 138 L MPV Not Reportable Immature Gran % (Auto) 0.5 H Neut % (Auto) 81.8 H Lymph % (Auto) 8.4 L [place] % (Auto) 8.5 Eos % (Auto) 0.4 Baso % (Auto) 0.4 Lymph # (Auto) 0.9 L [place] # (Auto) 0.9 Eos # (Auto) 0.0 Baso # (Auto) 0.0 Abs Immat Gran (auto) 0.05 H Absolute Neuts (auto) 8.9 H Absolute Nucleated RBC 0.000 Nucleated RBC % (auto) 0.0 Sodium Potassium Chloride Carbon Dioxide Anion Gap BUN Creatinine 0.98 Estim Creat Clear Calc 68.3 Estimated GFR 60 POC Glucose 212 H Random Glucose Calcium Random Vancomycin Blood Type Antibody Screen 09/21/22 09/21/22 09/21/22 05:46 07:22 08:47 WBC RBC Hgb Hct MCV MCH MCHC RDW Plt Count MPV Immature Gran % (Auto) Neut % (Auto) Lymph % (Auto) [place] % (Auto) Eos % (Auto) Baso % (Auto) Lymph # (Auto) [place] # (Auto) Eos # (Auto) Baso # (Auto) Abs Immat Gran (auto) Absolute Neuts (auto) Absolute Nucleated RBC Nucleated RBC % (auto) Sodium 141 Potassium 4.5 Chloride 102 Carbon Dioxide 31 H Anion Gap 13 BUN 18 H Creatinine 0.95 Estim Creat Clear Calc 70.5 Estimated GFR > 60 POC Glucose 142 H Random Glucose 134 H Calcium 8.3 L Random Vancomycin 16.6 Blood Type Antibody Screen 09/21/22 11:20 WBC RBC Hgb Hct MCV MCH MCHC RDW Plt Count MPV Immature Gran % (Auto) Neut % (Auto) Lymph % (Auto) [place] % (Auto) Eos % (Auto) Baso % (Auto) Lymph # (Auto) [place] # (Auto) Eos # (Auto) Baso # (Auto) Abs Immat Gran (auto) Absolute Neuts (auto) Absolute Nucleated RBC Nucleated RBC % (auto) Sodium Potassium Chloride Carbon Dioxide Anion Gap BUN Creatinine Estim Creat Clear Calc Estimated GFR POC Glucose 146 H Random Glucose Calcium Random Vancomycin Blood Type Antibody Screen Discharge Plan Discharge Anticipated Discharge Date/Time: 09/21/22 12:39 Patient Disposition: Home Health Service Discharge Diagnosis: s/p BKA R, Osteomyelitis Referrals: [facility] [Other] - 1 Week (SN and PT home services) Emilie Dangelo MD [Primary Care Provider] - 1 Week Luis Miguel Cantu MD [Physician] - 1 Day Discharge Medications: New atorvastatin 80 mg Tablet 80 mg PO BEDTIME 30 Days Qty: 30 0RF acetaminophen 325 mg Tablet 650 mg PO Q8H PRN (Reason: Pain, Mild (Pain Scale 1-3)) 30 Days Qty: 90 0RF polyethylene glycol 3350 17 gram Powder In Packet 17 g PO DAILY PRN (Reason: Constipation) 5 Days Qty: 30 0RF aspirin 81 mg Tablet,Delayed Release (Dr/Ec) 81 mg PO DAILY 30 Days Qty: 30 0RF carvedilol 3.125 mg Tablet 3.125 mg PO BID 30 Days Qty: 60 0RF Protocol: Hold for SBP/HR < HOLD for SBP < : 90 HOLD for HR < : 60 gabapentin 100 mg Capsule 200 mg PO BID 10 Days Qty: 40 0RF Brilinta 90 mg Tablet 90 mg PO BID 30 Days Qty: 60 0RF doxycycline hyclate 100 mg tablet 100 mg PO BID 14 Days Qty: 28 0RF cefuroxime axetil 500 mg tablet 500 mg PO BID 14 Days Qty: 28 0RF oxycodone 5 mg Tablet 5 mg PO Q6H PRN (Reason: Pain, Moderate (Pain Scale 4-6) 5 Days Qty: 20 0RF Rx Instructions: Partial Fill upon patient request. Continued aspirin 81 mg tablet,delayed release (DR/EC) 1 tab PO DAILY Incruse Ellipta 62.5 mcg/actuation blister with device 1 puff PO DAILY montelukast 10 mg tablet 1 tab PO BEDTIME insulin glargine [Lantus Solostar U-100 Insulin] 100 unit/mL (3 mL) insulin pen 20 unit subcut BID gabapentin 300 mg capsule 2 cap PO BID albuterol sulfate 2.5 mg /3 mL (0.083 %) solution for nebulization 1 vial inhalation Q6H PRN (Reason: Wheezing) albuterol sulfate [Ventolin HFA] 90 mcg/actuation HFA aerosol inhaler 1 - 2 puff INHALATION Q4-6H PRN (Reason: Wheezing) lisinopril 20 mg tablet 20 mg PO DAILY furosemide 40 mg Tablet 40 mg PO BID Discontinued doxycycline hyclate 100 mg tablet 100 mg PO BID 10 Days Qty: 20 0RF Discharge Orders: Discharge Order (Routine); Ordered 09/21/22 Ordered By: Tanner Best Diet: Diabetic diet Activity on Discharge: Walk with crutches Stand Alone Forms: Patient Portal Discharge page Care Plan Goals: underwent below-knee amputation of the left leg. Please continue IV antibiotics for the next 10 days including cefuroxime as well as doxycycline 100 mg b.i.d. Health Concerns: ambulation, please continue to work with home PT Plan of Treatment: continue PO abx for 14 days. home health care contiue Brilinta, asa and statin for treatment of coronary artery disease with recent MS Assessment: as above
--- NOTE | 2022-09-21 12:45 | HO.POSTANES ---
Post Anesthesia Evaluation Post Anesthesia Evaluation Vital Signs: Vital Signs Temp Pulse Resp BP Pulse Ox O2 Del Method O2 Flow Rate 09/21/22 10:52 94 138/72 97 09/21/22 07:17 98.2 F 94 18 138/72 97 Room Air 09/21/22 03:29 97.5 F 93 20 119/62 96 Nasal Cannula 2 Anesthesia: Monitored and Nerve Block Mental Status: Awake Pain Control: Satisfactory Nausea/Vomiting: None Hydration: Adequate Anesthesia-Related Issues: No Anes. Related Issues
== END 2022-09-21 13:38 | disposition home health service (06) | DRG 305 ==
LOC: HO.ED 09-15 00:55 → HO.EDOVER 09-15 01:56 → HO.S3 09-15 07:19
PROVIDERS: Anesthesiology; Nurse Practitioner Acute Care; Physician Assistant Medical; Surgery; Admitting Provider Internal Medicine; Emergency Provider Internal Medicine; PCP Internal Medicine; Responsible Provider Internal Medicine; Visit Provider Internal Medicine
PROC: 0Y6J0Z1 Detachment at Left Lower Leg, High, Open Approach (ICD-10-PCS; CPT 27880; principal; 2022-09-20 13:40)
DX: E11.52 Type 2 diabetes mellitus with diabetic peripheral angiopathy with gangrene (principal); I21.4 Non-ST elevation (NSTEMI) myocardial infarction; E11.621 Type 2 diabetes mellitus with foot ulcer; M86.672 Other chronic osteomyelitis, left ankle and foot; I50.22 Chronic systolic (congestive) heart failure; L97.429 Non-pressure chronic ulcer of left heel and midfoot with unspecified severity; E11.65 Type 2 diabetes mellitus with hyperglycemia; D50.9 Iron deficiency anemia, unspecified; E11.69 Type 2 diabetes mellitus with other specified complication; E87.5 Hyperkalemia; L85.0 Acquired ichthyosis; I25.10 Atherosclerotic heart disease of native coronary artery without angina pectoris; I25.5 Ischemic cardiomyopathy; J44.9 Chronic obstructive pulmonary disease, unspecified; F17.210 Nicotine dependence, cigarettes, uncomplicated; Z71.6 Tobacco abuse counseling; Z20.822 Contact with and (suspected) exposure to COVID-19; Z91.199 Patient's noncompliance with other medical treatment and regimen due to unspecified reason; Z88.0 Allergy status to penicillin; Z88.5 Allergy status to narcotic agent; Z79.82 Long term (current) use of aspirin; Z79.4 Long term (current) use of insulin; Z79.899 Other long term (current) drug therapy
CPT/HCPCS: 36415; 73701; 80048; 80053; 80202; 82009; 82565; 82803; 82947; 83605; 85025; 85027; 86850; 86900; 86901; 87040; 87635; 88307; 88311; 93005; 97161; 97162; 99285; C1776; J0692; J1170; J1650; J2250; J2270; J2543; J3370; J3371; Q9967

== ENCOUNTER → 2022-09-22 14:25 | Outpatient (BNVA) | payer OTHER, SELFPAY | PROVIDERS: PCP Internal Medicine; Visit Provider Surgery | DX: Z47.81 Encounter for orthopedic aftercare following surgical amputation (principal); Z89.512 Acquired absence of left leg below knee | CPT/HCPCS: 99212 ==

== ENCOUNTER 2022-09-24 14:39 | Emergency (ER) | payer OTHER, SELFPAY ==
--- NOTE | ~2022-09-24 | CT_ITS ---
EXAMINATION: CT ABDOMEN AND PELVIS WITHOUT CONTRAST CLINICAL INFORMATION: Abdominal pain. COMPARISON: CT scan abdomen pelvis 09/08/2022 TECHNIQUE: Multidetector volumetric imaging was performed from the superior aspect of the liver through the pubic symphysis. Sagittal and coronal reformatted images were obtained on the technologist's workstation. This CT examination was performed using dose optimization techniques as appropriate, variously including the following: *Automated exposure control *Adjustment of mA and/or kV according to patient size (this includes techniques or standardized protocols for targeted exams where dose is matched to indication/reason for exam; i.e. extremities or head) *Use of iterative reconstruction technique DLP: 509 mGy-cm FINDINGS: LUNG BASES: Small dependent bilateral pleural effusions. Volume of pleural effusion similar prior CT study 09/08/2022. Small pericardial effusion. Dependent atelectasis at lung bases. LIVER, GALLBLADDER, AND BILIARY TREE: The liver is normal in size, shape, and attenuation. No focal hepatic lesion or biliary ductal dilatation is present. The gallbladder is unremarkable with no evidence of radiopaque gallstones, gallbladder wall thickening, or obvious pericholecystic inflammatory changes. PANCREAS: Unremarkable. SPLEEN: Splenomegaly. Spleen measures 17 cm superior inferior. ADRENAL GLANDS: Stable 1.5 cm left adrenal nodule. Nodule unchanged since CAT scan 02/05/2020. This nodule has density measurement -21 Hounsfield units consistent with adrenal adenoma. No further follow-up imaging recommended. Right adrenal gland is normal. KIDNEYS AND URETERS: The kidneys are normal in size, shape, and attenuation. No hydronephrosis, hydroureter, or calculi seen. Linear calcifications in the right and left renal hilar areas likely vascular. No perinephric stranding. BLADDER: Unremarkable. GASTROINTESTINAL TRACT: The small and large bowel are unremarkable. The appendix is unremarkable. MESENTERY: There is a moderate volume of abdominal ascites. The volume of abdominal ascites similar prior CT study 09/08/2022. ABDOMINAL WALL: No significant hernia is appreciated. Mild generalized anasarca. LYMPH NODES: Normal. VASCULAR: Scattered vascular calcifications in the abdomen and the pelvis. PELVIC VISCERA: Uterus is anteverted. No adnexal abnormality. OSSEOUS STRUCTURES: Unremarkable. CT/CT abdomen pelvis wo IV con IMPRESSION: 1. Small to moderate volume of abdominal ascites. 2. Splenomegaly. 3. Stable left adrenal nodule. 4. Small dependent bilateral pleural effusions. Small pericardial effusion. Fleischner guidelines were followed.
[2022-09-24 14:54] VITALS: BP 108/58; PULSE 86; O2SAT 100
--- NOTE | 2022-09-24 15:01 | ECG_ITS ---
Test Reason : weakness Blood Pressure : / mmHG Vent. Rate : 088 BPM Atrial Rate : 088 BPM P-R Int : 158 ms QRS Dur : 090 ms QT Int : 420 ms P-R-T Axes : 078 076 107 degrees QTc Int : 508 ms Normal sinus rhythm Possible Anterior infarct (cited on or before 13-JUN-2022) Prolonged QT Abnormal ECG When compared with ECG of 15-SEP-2022 04:30, Nonspecific T wave abnormality no longer evident in Inferior leads Referred By: Maki Ram Electronically Signed By:LUANN SALAZAR MD
[2022-09-24 15:04] VITALS: BP 100/74; PULSE 88; RESP 14; TEMP 36.6; O2SAT 98; BMI 27.5
--- NOTE | 2022-09-24 15:32 | ED_ITS ---
HPI - Abdominal Pain General Chief Complaint: Abdominal Pain <Maki Ram NP - Last Filed: 09/24/22 16:31> Stated Complaint: Abd pain, ETOH per EMS <Maki Ram NP - Last Filed: 09/24/22 16:31> Time Seen by Provider: 09/24/22 14:44 <Maki Ram NP - Last Filed: 09/24/22 16:31> Source: patient and EMS <Maki Ram NP - Last Filed: 09/24/22 16:31> Limitations: no limitations <Maki Ram NP - Last Filed: 09/24/22 16:31> History of Present Illness HPI narrative: 52-year-old female with a past medical history of asthma, ACS, atrial tachycardia, COPD, diabetes, HTN, GERD, recent osteomyelitis of LLE requiring L BKA on 09/20 discharged from this facility 09/21 on 14 days of cefuroxime/doxycycline here with complaints of upper abdominal burning, nausea/vomiting x 2 days. No urinary symptoms, fevers, chills. Last BM yesterday and normal. Taking her antibiotics as prescribed. She feels that her leg is okay and denies increase in swelling, redness, pain. <Maki Ram NP - Last Filed: 09/24/22 16:31> Related Data Home Medications: Home Medications Medication Instructions Recorded Confirmed aspirin 81 mg tablet,delayed 1 tab PO DAILY 12/24/20 09/15/22 release umeclidinium 62.5 mcg/actuation 1 puff PO DAILY 10/31/21 09/15/22 blister powder for inhalation (Incruse Ellipta) montelukast 10 mg tablet 1 tab PO BEDTIME 02/13/22 09/15/22 insulin glargine 100 unit/mL (3 20 unit subcut BID 03/23/22 09/15/22 mL) subcutaneous pen (Lantus Solostar U-100 Insulin) gabapentin 300 mg capsule 2 cap PO BID 05/01/22 09/15/22 albuterol sulfate 2.5 mg/3 mL 1 vial inhalation Q6H PRN Wheezing 06/19/22 09/15/22 (0.083 %) solution for nebulization albuterol sulfate 90 mcg/actuation 1 - 2 puff inhalation Q4-6H PRN 06/19/22 09/15/22 aerosol inhaler (Ventolin HFA) Wheezing lisinopril 20 mg tablet 20 mg PO DAILY 09/08/22 09/15/22 furosemide 40 mg tablet 40 mg PO BID 09/12/22 09/15/22 Previous Rx's Medication Instructions Recorded acetaminophen 325 mg tablet 650 mg PO Q8H PRN Pain, Mild (Pain 09/21/22 Scale 1-3) 30 days #90 tabs aspirin 81 mg tablet,delayed 81 mg PO DAILY 30 days #30 tabs 09/21/22 release atorvastatin 80 mg tablet 80 mg PO BEDTIME 30 days #30 tabs 09/21/22 carvedilol 3.125 mg tablet 3.125 mg PO BID 30 days #60 tabs 09/21/22 cefuroxime axetil 500 mg tablet 500 mg PO BID 14 days #28 tabs 09/21/22 doxycycline hyclate 100 mg tablet 100 mg PO BID 14 days #28 tabs 09/21/22 gabapentin 100 mg capsule 200 mg PO BID 10 days #40 caps 09/21/22 polyethylene glycol 3350 17 gram 17 g PO DAILY PRN Constipation 5 09/21/22 oral powder packet days #30 ea ticagrelor 90 mg tablet (Brilinta) 90 mg PO BID 30 days #60 tabs 09/21/22 ondansetron HCl 4 mg tablet 4 mg PO Q8-12H PRN nausea and 09/22/22 vomiting #20 tabs ondansetron 4 mg disintegrating 4 mg PO Q8H 3 days #9 tabs 09/24/22 tablet <Maki Ram NP - Last Filed: 09/24/22 16:31> Allergies/Adverse Reactions: Allergies Allergy/AdvReac Type Severity Reaction Status Date / Time Penicillins [PENICILLINS] Allergy Severe RASH Verified 09/22/22 14:31 amoxicillin [AMOXICILLIN] Allergy Intermediate HIVES Verified 09/22/22 14:31 codeine Allergy Itching Verified 09/22/22 14:31 <Maki Ram NP - Last Filed: 09/24/22 16:31> Review of Systems Review of Systems Yes all other systems are reviewed and are negative <Maki Ram NP - Last Filed: 09/24/22 16:31> Constitutional: Reports no additional constitutional complaints, Denies body ache(s), Denies chills, Denies fever(s), Denies headache(s) and Denies weakness <Maki Ram COMPUTER FORENSICS INVESTIGATOR - Last Filed: 09/24/22 16:31> Eyes: Reports no additional eye complaints and Denies change in vision <Maki Ram COMPUTER FORENSICS INVESTIGATOR - Last Filed: 09/24/22 16:31> Reports system reviewed and no additional complaints, except as documented, Denies dizziness, Denies headache(s), Denies nasal congestion, Denies nasal discharge and Denies neck pain <Maki Ram COMPUTER FORENSICS INVESTIGATOR - Last Filed: 09/24/22 16:31> Cardiovascular: Reports no additional cardiovascular complaints, Denies chest pain, Denies leg edema and Denies dyspnea <Maki Ram COMPUTER FORENSICS INVESTIGATOR - Last Filed: 09/24/22 16:31> Respiratory: Reports no additional respiratory complaints, Denies cough and Denies dyspnea <Maki Ram COMPUTER FORENSICS INVESTIGATOR - Last Filed: 09/24/22 16:31> Gastrointestinal: Reports no additional gastrointestinal complaints, Reports abdominal pain, Denies diarrhea, Reports nausea and Reports vomiting <Maki Ram COMPUTER FORENSICS INVESTIGATOR - Last Filed: 09/24/22 16:31> Genitourinary: Reports no additional female genitourinary complaints and Denies urinary incontinence <Maki Ram COMPUTER FORENSICS INVESTIGATOR - Last Filed: 09/24/22 16:31> Musculoskeletal: Reports no additional musculoskeletal complaints, Denies back pain, Denies arthralgias, Denies joint swelling, Denies neck pain, Denies numbness and Denies tingling <Maki Ram COMPUTER FORENSICS INVESTIGATOR - Last Filed: 09/24/22 16:31> Skin/Breast: Reports system reviewed and no additional complaints, except as docu and Denies rash <Maki Ram COMPUTER FORENSICS INVESTIGATOR - Last Filed: 09/24/22 16:31> Reports system reviewed and no additional complaints, except as documented, Denies dizziness, Denies headache(s), Denies numbness, Denies tingling and Denies weakness <Makiarielle Ram NP - Last Filed: 09/24/22 16:31> [facility] Past Medical History Attestation statement: The following information was validated with the patient. <Maki Ram NP - Last Filed: 09/24/22 16:31> Source: old records reviewed and nursing notes reviewed <Maki Ram NP - Last Filed: 09/24/22 16:31> Medical History: Medical History Asthma Atherosclerotic cardiovascular disease Atrial tachycardia Below-knee amputation of left lower extremity Cellulitis in diabetic foot COPD (chronic obstructive pulmonary disease) Coronary artery disease COVID-19 vaccine series completed Diabetes Diabetic foot infection Diabetic foot infection Diabetic foot ulcer Diabetic toe ulcer Essential hypertension GERD (gastroesophageal reflux disease) Hyperglycemia due to diabetes mellitus Hypertension Ischemic cardiomyopathy Left against medical advice Left against medical advice Osteomyelitis Osteomyelitis 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 PAD (peripheral artery disease) <Maki Ram NP - Last Filed: 09/24/22 16:31> Surgical History: Surgical History History of esophagogastroduodenoscopy (EGD) History of toe surgery (09/22/21) Status post below-knee amputation of left lower extremity (09/20/22) <Maki Ram NP - Last Filed: 09/24/22 16:31> Family History Family History: Family History Mother Hx of CABG Sister CAD (coronary artery disease) <Maki Ram NP - Last Filed: 09/24/22 16:31> Social History Social History: Social History Household Members: Family and Children Housing: Apartment Do you presently have visiting nurse or other home services: No Unable to assess alcohol history related to: Refusing to respond Alcohol intake: current Alcohol intake frequency: does not drink Alcohol type: other Patient Tobacco Use Status: Current everyday Tobacco user Tobacco use type: Cigarette Cigarette Packs Per Day: 0.5 Cigarettes Per Day: 6 Years Smoked: 43 Smoked in Last 30 Days: No e-Cigarette/Vaping Use: Currently Using Second Hand Smoke Exposure: Yes Use of substances other than those prescribed or required for medical reasons: Yes Substance Use Type: Marijuana Advance Directives: Yes Advance Directives on File: Yes Advance Directives Date on File: 12/28/20 service: No Current occupational status: unemployed and disabled <Maki Ram NP - Last Filed: 09/24/22 16:31> Physical Exam ED Vital Signs: Vital Signs - 24 hr 09/24/22 15:04 09/24/22 17:35 Temperature 97.9 F Pulse Rate 88 88 Respiratory Rate 14 14 Blood Pressure 100/74 112/68 Pulse Oximetry 98 96 Oxygen Delivery Method Room Air Room Air BMI result Body Mass Index 27.5 <Maki Ram NP - Last Filed: 09/24/22 16:31> Vital Signs - 24 hr 09/24/22 15:04 09/24/22 17:35 Temperature 97.9 F Pulse Rate 88 88 Respiratory Rate 14 14 Blood Pressure 100/74 112/68 Pulse Oximetry 98 96 Oxygen Delivery Method Room Air Room Air BMI result Body Mass Index 27.5 <Ashley Gill PA - Last Filed: 09/24/22 18:58> Const Other: Rocking back and forth holding her abdomen <Maki Ram NP - Last Filed: 09/24/22 16:31> General: alert <Maki Ram NP - Last Filed: 09/24/22 16:31> Orientation/consciousness: patient oriented x3 <Maki Ram NP - Last Filed: 09/24/22 16:31> Limitations: no limitations <Maki Ram NP - Last Filed: 09/24/22 16:31> HENMT Head: Yes normal to inspection <Maki Ram NP - Last Filed: 09/24/22 16:31> Ears: hearing grossly normal bilaterally <Maki Ram NP - Last Filed: 09/24/22 16:31> Eyes General: appearance normal, both eyes and all related structures <Maki Ram NP - Last Filed: 09/24/22 16:31> Pupils: Equal, round and reactive pupils present <Maki Ram COMPUTER FORENSICS INVESTIGATOR - Last Filed: 09/24/22 16:31> Neck Neck: Yes normal visual inspection <Maki Ram COMPUTER FORENSICS INVESTIGATOR - Last Filed: 09/24/22 16:31> Chest Chest palpation & inspection: normal inspection of the chest <Maki Ram COMPUTER FORENSICS INVESTIGATOR - Last Filed: 09/24/22 16:31> Resp Effort & Inspection: normal respiratory effort <Maki Ram, COMPUTER FORENSICS INVESTIGATOR - Last Filed: 09/24/22 16:31> Auscultation: clear to auscultation bilaterally <Maki Ram, COMPUTER FORENSICS INVESTIGATOR - Last Filed: 09/24/22 16:31> Cardio Rate: regular rate <Maki Ram COMPUTER FORENSICS INVESTIGATOR - Last Filed: 09/24/22 16:31> Rhythm: regular rhythm <Maki Ram, COMPUTER FORENSICS INVESTIGATOR - Last Filed: 09/24/22 16:31> Peripheral pulses: Peripheral pulses 2+ throughout <Maki Ram, COMPUTER FORENSICS INVESTIGATOR - Last Filed: 09/24/22 16:31> GI Inspection: Yes normal to inspection <Maki Ram, COMPUTER FORENSICS INVESTIGATOR - Last Filed: 09/24/22 16:31> Palpation (GI): Soft to palpation and Tenderness to palpation present (GI) in the epiga strum; with no rebound tenderness <Maki Ram, COMPUTER FORENSICS INVESTIGATOR - Last Filed: 09/24/22 16:31> General: Yes no CVA tenderness <Maki Ram COMPUTER FORENSICS INVESTIGATOR - Last Filed: 09/24/22 16:31> Back/Spine/Pelvis Back: no CVA tenderness <Maki Ram, COMPUTER FORENSICS INVESTIGATOR - Last Filed: 09/24/22 16:31> Thoracic/Lumbar Spine: thoracic and lumbar spine normal to inspection <Maki Ram COMPUTER FORENSICS INVESTIGATOR - Last Filed: 09/24/22 16:31> Skin General skin exam: no rashes or lesions noted <Maki Ram, COMPUTER FORENSICS INVESTIGATOR - Last Filed: 09/24/22 16:31> Neuro General: patient oriented x3 and moves all extremities <Maki Ram COMPUTER FORENSICS INVESTIGATOR - Last Filed: 09/24/22 16:31> Cranial nerves: Yes Equal, round and reactive pupils present <Maki Ram NP - Last Filed: 09/24/22 16:31> Extrem Other: +left BKA <Maki Ram NP - Last Filed: 09/24/22 16:31> Course Course Course Narrative: Unfortunately nursing has attempted multiple times to given IV on this patient have been unable to. Attending physician will attempt and ultrasound placed PIV. <Maki Ram NP - Last Filed: 09/24/22 16:31> Reevaluation(s) Reevaluation #1: 1630-Sign out to Ashley CARTAGENA pending re-evaluation of pain/nausea. Patient may need imaging if continued symptoms. <Maki Ram NP - Last Filed: 09/24/22 16:31> Reevaluation #2: 1850: Patient's repeat troponin was lower than her initial and consistent with patient's baseline elevated troponins. Patient's WBC count was slightly elevated however, I believe this is secondary to the acute nausea/vomiting. Patient's abdomen/pelvis CT scan was negative for any acute process. Patient is feeling signficantly better and would like to discharge home. Patient cleared for discharge. <MITZI Campbell - Last Filed: 09/24/22 18:58> Medical Decision Making Medical Decision Making [facility] Narrative: 52 yo female here with complaints 2 days of upper abdominal pain described as burning with vomiting. Of note, patient has been on doxycycline for a LLE osteomyelitis requiring BKA. Epigastric area is tender with no rebound or guarding. WIll obtain labs, UA, EKG, COVID screen <aMki Ram NP - Last Filed: 09/24/22 16:31> Differential Diagnosis Differential Diagnoses: The differential diagnosis associated with the presentation includes <Maki Ram NP - Last Filed: 09/24/22 16:31> Esophagitis, gastritis, less likely cholecystitis, appendicitis Consider ACS <Maki Ram NP - Last Filed: 09/24/22 16:31> Lab Data [facility] Lab Attestation statement: I reviewed the patient's lab results. <Maki Ram NP - Last Filed: 09/24/22 16:31> Result Diagrams: 09/24/22 15:22 09/24/22 15:22 <Maki Ram NP - Last Filed: 09/24/22 16:31> Labs: Lab Results 09/24/22 09/24/22 09/24/22 Range/Units 15:22 15:22 15:22 WBC 15.5 H (4.8-10.8) X10*3/uL RBC 6.15 H D (4.20-5.50) X10*6/uL Hgb 11.8 L D (12.0-16.0) g/dl Hct 40.8 D (37.0-47.0) % MCV 66.3 L (80.0-98.0) fL MCH 19.2 L (27.0-33.0) pg MCHC 28.9 L (31.0-35.0) g/dl RDW 23.0 H (11.0-16.0) % Plt Count 211 D (160-400) X10*3/uL MPV Not Reportable Immature Gran % (Auto) 0.6 H (0.0-0.4) % Neut % (Auto) 87.9 H (45-73) % Lymph % (Auto) 6.4 L (20-40) % [place] % (Auto) 4.7 (2-11) % Eos % (Auto) 0.1 (0-4) % Baso % (Auto) 0.3 (0-2) % Lymph # (Auto) 1.0 L (1.2-4.9) X10*3/uL [place] # (Auto) 0.7 (0.1-1.2) X10*3/uL Eos # (Auto) 0.0 (0.0-0.4) X10*3/uL Baso # (Auto) 0.1 (0.0-0.2) X10*3/uL Abs Immat Gran (auto) 0.09 H (0.00-0.03) X10*3/uL Absolute Neuts (auto) 13.6 H (2.0-8.3) x10*3/uL Absolute Nucleated RBC 0.000 (0.0-0.012) X10*3/uL Nucleated RBC % (auto) 0.0 (0.0-0.2) /100WBC Smear Tech's Comments VERIFIED Sodium 140 (135-145) mmol/L Potassium 3.7 (3.3-5.1) mmol/L Chloride 93 L (96-108) mmol/L Carbon Dioxide 36 H (22-29) mmol/L Anion Gap 15 (12-20) BUN 15 (9-16) mg/dL Creatinine 0.96 (0.5-1.4) mg/dL Estim Creat Clear Calc 62.7 Estimated GFR > 60 Random Glucose 274 H (60-115) mg/dL Calcium 8.3 L (8.4-10.2) mg/dL Total Bilirubin 1.9 H (0.0-1.0) mg/dL Direct Bilirubin 0.5 (0.0-0.5) mg/dL AST 22 (5-31) U/L ALT 15 (0-31) U/L Alkaline Phosphatase 92 (39-117) U/L Troponin I High Sens 79.8 H* D (<3.5-17.0) ng/L Total Protein 5.8 L (6.5-8.0) g/dL Albumin 2.6 L (3.5-5.0) g/dL Lipase 5 L (8-78) U/L Urine Color Urine Appearance Urine pH (5.0-9.0) Ur Specific [place] (1.005-1.025) Urine Protein (Neg-Trace) mg/dL Urine Glucose (UA) (Negative) mg/dL Urine Ketones (Negative) mg/dL Urine Blood (Negative) Urine Nitrite (Negative) Ur Leukocyte Esterase (Negative) Urine RBC (0-2) /HPF Urine WBC (0-5) /HPF Ur Squamous Epith Cells (0-2) /HPF Urine Bacteria (None Seen) Hyaline Casts (0-2) /LPF COVID-19 (KATHLEEN) (Negative) COVID-19 Clin Com 09/24/22 09/24/22 09/24/22 Range/Units 15:37 15:37 18:18 WBC (4.8-10.8) X10*3/uL RBC (4.20-5.50) X10*6/uL Hgb (12.0-16.0) g/dl Hct (37.0-47.0) % MCV (80.0-98.0) fL MCH (27.0-33.0) pg MCHC (31.0-35.0) g/dl RDW (11.0-16.0) % Plt Count (160-400) X10*3/uL MPV Immature Gran % (Auto) (0.0-0.4) % Neut % (Auto) (45-73) % Lymph % (Auto) (20-40) % [place] % (Auto) (2-11) % Eos % (Auto) (0-4) % Baso % (Auto) (0-2) % Lymph # (Auto) (1.2-4.9) X10*3/uL [place] # (Auto) (0.1-1.2) X10*3/uL Eos # (Auto) (0.0-0.4) X10*3/uL Baso # (Auto) (0.0-0.2) X10*3/uL Abs Immat Gran (auto) (0.00-0.03) X10*3/uL Absolute Neuts (auto) (2.0-8.3) x10*3/uL Absolute Nucleated RBC (0.0-0.012) X10*3/uL Nucleated RBC % (auto) (0.0-0.2) /100WBC Smear Tech's Comments Sodium (135-145) mmol/L Potassium (3.3-5.1) mmol/L Chloride (96-108) mmol/L Carbon Dioxide (22-29) mmol/L Anion Gap (12-20) BUN (9-16) mg/dL Creatinine (0.5-1.4) mg/dL Estim Creat Clear Calc Estimated GFR Random Glucose (60-115) mg/dL Calcium (8.4-10.2) mg/dL Total Bilirubin (0.0-1.0) mg/dL Direct Bilirubin (0.0-0.5) mg/dL AST (5-31) U/L ALT (0-31) U/L Alkaline Phosphatase (39-117) U/L Troponin I High Sens 67.5 H* (<3.5-17.0) ng/L Total Protein (6.5-8.0) g/dL Albumin (3.5-5.0) g/dL Lipase (8-78) U/L Urine Color Yellow Urine Appearance Clear Urine pH 6.0 (5.0-9.0) Ur Specific [place] 1.015 (1.005-1.025) Urine Protein 100 (2+) H (Neg-Trace) mg/dL Urine Glucose (UA) 100 H (Negative) mg/dL Urine Ketones Negative (Negative) mg/dL Urine Blood Small (1+) H (Negative) Urine Nitrite Negative (Negative) Ur Leukocyte Esterase Trace H (Negative) Urine RBC 6-10 H (0-2) /HPF Urine WBC 0-5 (0-5) /HPF Ur Squamous Epith Cells 6-10 (0-2) /HPF Urine Bacteria None Seen (None Seen) Hyaline Casts 3-5 (0-2) /LPF COVID-19 (KATHLEEN) Negative (Negative) COVID-19 Clin Com See Note <Maki Ram, COMPUTER FORENSICS INVESTIGATOR - Last Filed: 09/24/22 16:31> Lab Results 09/24/22 09/24/22 09/24/22 Range/Units 15:22 15:22 15:22 WBC 15.5 H (4.8-10.8) X10*3/uL RBC 6.15 H D (4.20-5.50) X10*6/uL Hgb 11.8 L D (12.0-16.0) g/dl Hct 40.8 D (37.0-47.0) % MCV 66.3 L (80.0-98.0) fL MCH 19.2 L (27.0-33.0) pg MCHC 28.9 L (31.0-35.0) g/dl RDW 23.0 H (11.0-16.0) % Plt Count 211 D (160-400) X10*3/uL MPV Not Reportable Immature Gran % (Auto) 0.6 H (0.0-0.4) % Neut % (Auto) 87.9 H (45-73) % Lymph % (Auto) 6.4 L (20-40) % [place] % (Auto) 4.7 (2-11) % Eos % (Auto) 0.1 (0-4) % Baso % (Auto) 0.3 (0-2) % Lymph # (Auto) 1.0 L (1.2-4.9) X10*3/uL [place] # (Auto) 0.7 (0.1-1.2) X10*3/uL Eos # (Auto) 0.0 (0.0-0.4) X10*3/uL Baso # (Auto) 0.1 (0.0-0.2) X10*3/uL Abs Immat Gran (auto) 0.09 H (0.00-0.03) X10*3/uL Absolute Neuts (auto) 13.6 H (2.0-8.3) x10*3/uL Absolute Nucleated RBC 0.000 (0.0-0.012) X10*3/uL Nucleated RBC % (auto) 0.0 (0.0-0.2) /100WBC Smear Tech's Comments VERIFIED Sodium 140 (135-145) mmol/L Potassium 3.7 (3.3-5.1) mmol/L Chloride 93 L (96-108) mmol/L Carbon Dioxide 36 H (22-29) mmol/L Anion Gap 15 (12-20) BUN 15 (9-16) mg/dL Creatinine 0.96 (0.5-1.4) mg/dL Estim Creat Clear Calc 62.7 Estimated GFR > 60 Random Glucose 274 H (60-115) mg/dL Calcium 8.3 L (8.4-10.2) mg/dL Total Bilirubin 1.9 H (0.0-1.0) mg/dL Direct Bilirubin 0.5 (0.0-0.5) mg/dL AST 22 (5-31) U/L ALT 15 (0-31) U/L Alkaline Phosphatase 92 (39-117) U/L Troponin I High Sens 79.8 H* D (<3.5-17.0) ng/L Total Protein 5.8 L (6.5-8.0) g/dL Albumin 2.6 L (3.5-5.0) g/dL Lipase 5 L (8-78) U/L Urine Color Urine Appearance Urine pH (5.0-9.0) Ur Specific [place] (1.005-1.025) Urine Protein (Neg-Trace) mg/dL Urine Glucose (UA) (Negative) mg/dL Urine Ketones (Negative) mg/dL Urine Blood (Negative) Urine Nitrite (Negative) Ur Leukocyte Esterase (Negative) Urine RBC (0-2) /HPF Urine WBC (0-5) /HPF Ur Squamous Epith Cells (0-2) /HPF Urine Bacteria (None Seen) Hyaline Casts (0-2) /LPF COVID-19 (KATHLEEN) (Negative) COVID-19 Clin Com 09/24/22 09/24/22 09/24/22 Range/Units 15:37 15:37 18:18 WBC (4.8-10.8) X10*3/uL RBC (4.20-5.50) X10*6/uL Hgb (12.0-16.0) g/dl Hct (37.0-47.0) % MCV (80.0-98.0) fL MCH (27.0-33.0) pg MCHC (31.0-35.0) g/dl RDW (11.0-16.0) % Plt Count (160-400) X10*3/uL MPV Immature Gran % (Auto) (0.0-0.4) % Neut % (Auto) (45-73) % Lymph % (Auto) (20-40) % [place] % (Auto) (2-11) % Eos % (Auto) (0-4) % Baso % (Auto) (0-2) % Lymph # (Auto) (1.2-4.9) X10*3/uL [place] # (Auto) (0.1-1.2) X10*3/uL Eos # (Auto) (0.0-0.4) X10*3/uL Baso # (Auto) (0.0-0.2) X10*3/uL Abs Immat Gran (auto) (0.00-0.03) X10*3/uL Absolute Neuts (auto) (2.0-8.3) x10*3/uL Absolute Nucleated RBC (0.0-0.012) X10*3/uL Nucleated RBC % (auto) (0.0-0.2) /100WBC Smear Tech's Comments Sodium (135-145) mmol/L Potassium (3.3-5.1) mmol/L Chloride (96-108) mmol/L Carbon Dioxide (22-29) mmol/L Anion Gap (12-20) BUN (9-16) mg/dL Creatinine (0.5-1.4) mg/dL Estim Creat Clear Calc Estimated GFR Random Glucose (60-115) mg/dL Calcium (8.4-10.2) mg/dL Total Bilirubin (0.0-1.0) mg/dL Direct Bilirubin (0.0-0.5) mg/dL AST (5-31) U/L ALT (0-31) U/L Alkaline Phosphatase (39-117) U/L Troponin I High Sens 67.5 H* (<3.5-17.0) ng/L Total Protein (6.5-8.0) g/dL Albumin (3.5-5.0) g/dL Lipase (8-78) U/L Urine Color Yellow Urine Appearance Clear Urine pH 6.0 (5.0-9.0) Ur Specific [place] 1.015 (1.005-1.025) Urine Protein 100 (2+) H (Neg-Trace) mg/dL Urine Glucose (UA) 100 H (Negative) mg/dL Urine Ketones Negative (Negative) mg/dL Urine Blood Small (1+) H (Negative) Urine Nitrite Negative (Negative) Ur Leukocyte Esterase Trace H (Negative) Urine RBC 6-10 H (0-2) /HPF Urine WBC 0-5 (0-5) /HPF Ur Squamous Epith Cells 6-10 (0-2) /HPF Urine Bacteria None Seen (None Seen) Hyaline Casts 3-5 (0-2) /LPF COVID-19 (KATHLEEN) Negative (Negative) COVID-19 Clin Com See Note <MITZI Campbell - Last Filed: 09/24/22 18:58> Independent Interpretation I performed an independent interpretation of an: EKG <Maki Ram NP - Last Filed: 09/24/22 16:31> Interpretation: I independently reviewed the EKG which shows normal sinus rhythm with a rate 88, normal TX, normal QRS, prolonged QT <Maki Ram NP - Last Filed: 09/24/22 16:31> Independent Historian Clinical information obtained from an independent historian. History obtained from or confirmed by: EMS <Maki Ram NP - Last Filed: 09/24/22 16:31> External Record Review External record reviewed: Inpatient record <Maki Ram NP - Last Filed: 09/24/22 16:31> Reviewed inpatient record from last admission <Maki Ram NP - Last Filed: 09/24/22 16:31> Medications Administered Discontinued Medications Generic Name Dose Route Start Last Admin Trade Name Angel PRN Reason Stop Dose Admin Al Hydroxide/Mg Hydroxide 30 ml 09/24/22 15:02 09/24/22 15:38 Magnesium Hydrox/Alum Hydrox 30 Ml Oral.Susp PO 09/24/22 15:03 30 ml ONCE ONE Administration Famotidine 20 mg 09/24/22 15:01 09/24/22 16:59 Famotidine/Pf 20 Mg/2 Ml Vial IVPUSH 09/24/22 15:02 20 mg ONCE ONE Administration Lidocaine HCl 15 ml 09/24/22 15:02 09/24/22 15:38 Lidocaine Hcl Viscous 2 % 15 Ml Solution MUCOUS MEM 09/24/22 15:03 15 ml ONCE ONE Administration Morphine Sulfate 4 mg 09/24/22 15:01 09/24/22 16:56 Morphine Sulfate 4 Mg/Ml Cartridge IVPUSH 09/24/22 15:02 4 mg ONCE ONE Administration Protocol Ondansetron HCl 4 mg 09/24/22 15:01 09/24/22 17:02 Ondansetron Hcl 4 Mg/2 Ml Vial IVPUSH 09/24/22 15:02 4 mg ONCE ONE Administration <Maki Ram NP - Last Filed: 09/24/22 16:31> Medications Administered Discontinued Medications Generic Name Dose Route Start Last Admin Trade Name Angel PRN Reason Stop Dose Admin Al Hydroxide/Mg Hydroxide 30 ml 09/24/22 15:02 09/24/22 15:38 Magnesium Hydrox/Alum Hydrox 30 Ml Oral.Susp PO 09/24/22 15:03 30 ml ONCE ONE Administration Famotidine 20 mg 09/24/22 15:01 09/24/22 16:59 Famotidine/Pf 20 Mg/2 Ml Vial IVPUSH 09/24/22 15:02 20 mg ONCE ONE Administration Lidocaine HCl 15 ml 09/24/22 15:02 09/24/22 15:38 Lidocaine Hcl Viscous 2 % 15 Ml Solution MUCOUS MEM 09/24/22 15:03 15 ml ONCE ONE Administration Morphine Sulfate 4 mg 09/24/22 15:01 09/24/22 16:56 Morphine Sulfate 4 Mg/Ml Cartridge IVPUSH 09/24/22 15:02 4 mg ONCE ONE Administration Protocol Ondansetron HCl 4 mg 09/24/22 15:01 09/24/22 17:02 Ondansetron Hcl 4 Mg/2 Ml Vial IVPUSH 09/24/22 15:02 4 mg ONCE ONE Administration <MITZI Campbell - Last Filed: 09/24/22 18:58> Discharge Plan Discharge Clinical Impression: Abdominal pain, Nausea & vomiting <Maki Ram NP - Last Filed: 09/24/22 16:31> Patient Disposition: Home, Self-Care <Maki Ram NP - Last Filed: 09/24/22 16:31> Instructions: Acute Nausea and Vomiting (ED), Abdominal Pain (ED) <Maki Ram NP - Last Filed: 09/24/22 16:31> Additional Instructions: Follow up with your primary care provider. Return to the emergency department immediately if your symptoms worsen or if you develop any dizziness, shortness of breath, difficulty breathing, chest pain, blurry vision, loss of vision, nausea, vomiting, abdominal pain, fever, chills, back pain, or any other complaints. <Maki Ram NP - Last Filed: 09/24/22 16:31> Prescriptions: New ondansetron 4 mg tablet,disintegrating 4 mg PO Q8H 3 Days Qty: 9 0RF No Action aspirin 81 mg tablet,delayed release (DR/EC) 1 tab PO DAILY Incruse Ellipta 62.5 mcg/actuation blister with device 1 puff PO DAILY montelukast 10 mg tablet 1 tab PO BEDTIME insulin glargine [Lantus Solostar U-100 Insulin] 100 unit/mL (3 mL) insulin pen 20 unit subcut BID gabapentin 300 mg capsule 2 cap PO BID albuterol sulfate 2.5 mg /3 mL (0.083 %) solution for nebulization 1 vial inhalation Q6H PRN (Reason: Wheezing) albuterol sulfate [Ventolin HFA] 90 mcg/actuation HFA aerosol inhaler 1 - 2 puff INHALATION Q4-6H PRN (Reason: Wheezing) lisinopril 20 mg tablet 20 mg PO DAILY furosemide 40 mg Tablet 40 mg PO BID atorvastatin 80 mg Tablet 80 mg PO BEDTIME 30 Days Qty: 30 0RF acetaminophen 325 mg Tablet 650 mg PO Q8H PRN (Reason: Pain, Mild (Pain Scale 1-3)) 30 Days Qty: 90 0RF polyethylene glycol 3350 17 gram Powder In Packet 17 g PO DAILY PRN (Reason: Constipation) 5 Days Qty: 30 0RF aspirin 81 mg Tablet,Delayed Release (Dr/Ec) 81 mg PO DAILY 30 Days Qty: 30 0RF carvedilol 3.125 mg Tablet 3.125 mg PO BID 30 Days Qty: 60 0RF Protocol: Hold for SBP/HR < HOLD for SBP < : 90 HOLD for HR < : 60 gabapentin 100 mg Capsule 200 mg PO BID 10 Days Qty: 40 0RF Brilinta 90 mg Tablet 90 mg PO BID 30 Days Qty: 60 0RF doxycycline hyclate 100 mg tablet 100 mg PO BID 14 Days Qty: 28 0RF cefuroxime axetil 500 mg tablet 500 mg PO BID 14 Days Qty: 28 0RF ondansetron HCl 4 mg tablet 4 mg PO Q8-12H PRN (Reason: nausea and vomiting) Qty: 20 0RF <Maki Ram NP - Last Filed: 09/24/22 16:31> Referrals: [facility] Family Medicine [Provider Group] (Call to establish and follow up with a primary care provider. If you already have a primary care provider, please follow up with them.) [facility] Primary Care, [place] [Provider Group] (Call to establish and follow up with a primary care provider. If you already have a primary care provider, please follow up with them.) [facility] Primary Care,Padmini [Provider Group] (Call to establish and follow up with a primary care provider. If you already have a primary care provider, please follow up with them.) <Maki Ram NP - Last Filed: 09/24/22 16:31> Print Language: Panamanian <Maki Ram NP - Last Filed: 09/24/22 16:31>
[2022-09-24] MEDS: Magnesium Hydrox/Alum Hydrox 30 ML ORAL.SUSP PO (15:38)
[2022-09-24] MEDS: Lidocaine HCl Viscous 2 % 15 ML SOLUTION MUCOUS MEM (15:38)
[2022-09-24 15:44] LABS: Alanine Aminotransferase 15 U/L (0-31); Albumin Level 2.6 g/dL (3.5-5.0); Alkaline Phosphatase 92 U/L (39-117); Anion Gap 15 (12-20); Aspartate Amino Transferase 22 U/L (5-31); Bilirubin Direct 0.5 mg/dL (0.0-0.5); Bilirubin Total 1.9 mg/dL (0.0-1.0); Blood Urea Nitrogen 15 mg/dL (9-16); Calcium 8.3 mg/dL (8.4-10.2); Carbon Dioxide 36 mmol/L (22-29); Chloride 93 mmol/L (96-108); Creatinine Clr Calc Pharmacy 62.7; Estimated Glomerular Filt Rate > 60; Glucose Random 274 mg/dL (60-115); Potassium 3.7 mmol/L (3.3-5.1); Sodium 140 mmol/L (135-145); Total Protein 5.8 g/dL (6.5-8.0)
[2022-09-24 15:46] LABS: Appearance Urine Clear; Color Urine Yellow; Glucose Urine UA 100 mg/dL (Negative); Leukocyte Esterase Urine Trace (Negative); Nitrite Urine Negative (Negative); Specific Gravity - Urine 1.015 (1.005-1.025); UMIC TRIGGER UACC YES; Urine Blood Small (1+) (Negative); Urine Ketones Negative (Negative); Urine Protein 100 (2+) mg/dL (Neg-Trace)
[2022-09-24 15:48] LABS: Basophils Percent Auto 0.3 % (0-2); Eosinophils Percent Auto 0.1 % (0-4); Hemoglobin 11.8 g/dl (12.0-16.0); Mean Corpuscular Hemoglobin 19.2 pg (27.0-33.0); SCAN SMEAR FLAG 1
[2022-09-24 15:49] LABS: Basophils Absolute Auto 0.1 X10*3/uL (0.0-0.2); Hematocrit 40.8 % (37.0-47.0); Imm Gran Abs Auto 0.09 X10*3/uL (0.00-0.03); Imm Gran Pct Auto 0.6 % (0.0-0.4); Lymphocytes Percent Auto 6.4 % (20-40); MANUAL DIFF FLAG SCAN; Mean Corpuscular HGB Conc 28.9 g/dl (31.0-35.0); Mean Corpuscular Volume 66.3 fL (80.0-98.0); Monocytes Absolute Auto 0.7 X10*3/uL (0.1-1.2); Monocytes Percent Auto 4.7 % (2-11); Neutrophils Absolute Auto 13.6 x10*3/uL (2.0-8.3); Neutrophils Percent Auto 87.9 % (45-73); PLT CLUMP 1; Red Blood Count 6.15 X10*6/uL (4.20-5.50)
[2022-09-24 15:54] LABS: Bacteria Urine None Seen (None Seen); WBC Urine 0-5 /HPF (0-5)
[2022-09-24 15:57] LABS: Troponin-I High Sensitivity 79.8 ng/L (<3.5-17.0)
[2022-09-24 15:58] LABS: COVID-19 Test Negative (Negative); IDNOW Serial# 08D9AD1C
[2022-09-24 15:59] LABS: PLT ABN DIST 1
[2022-09-24 16:00] LABS: Platelet Count 211 X10*3/uL (160-400); SLIDE REVIEW VERIFIED; White Blood Count 15.5 X10*3/uL (4.8-10.8)
--- NOTE | 2022-09-24 16:10 | PC.NURSE ---
This nurse and another nurse attempted to get IV on patient without success. Was able to obtain blood work. Provider aware that attempts to get IV placement have been thus far unsuccessful. Oral medications administered to patient.
--- NOTE | 2022-09-24 16:55 | PC.NURSE ---
IV access obtained on right side of patient's neck. Blood return noted; medications administered per AUG.
[2022-09-24] MEDS: Morphine Sulfate 4 MG/ML CARTRIDGE IVPUSH (16:56)
[2022-09-24 16:59] LABS: Lipase 5 U/L (8-78)
[2022-09-24] MEDS: Famotidine/PF 20 MG/2 ML VIAL IVPUSH (16:59)
[2022-09-24] MEDS: ondansetron HCL 4 MG/2 ML VIAL IVPUSH (17:02)
[2022-09-24 17:35] VITALS: BP 112/68; PULSE 88; RESP 14; O2SAT 96
[2022-09-24 18:50] LABS: Troponin-I High Sensitivity 67.5 ng/L (<3.5-17.0)
--- NOTE | 2022-09-24 19:07 | PC.NURSE ---
Patient requesting water which was provided to her. A phone was also provided for patient so that she can call for her ride.
[2022-09-24] MEDS: Metoclopramide HCl 10 MG/2 ML VIAL IVPUSH (19:19)
--- NOTE | 2022-09-24 19:20 | PC.NURSE ---
assumed care of pt aox3 pt vomiting provider aware meds to follow
[2022-09-24 19:32] VITALS: BP 139/84; PULSE 95; RESP 15; O2SAT 94
--- NOTE | 2022-09-24 19:35 | PC.NURSE ---
pt states sister picking her up and that she needs to go pt is up for discharge pt made aware
--- NOTE | 2022-09-24 19:45 | PC.NURSE ---
Discharge instructions given and explained to patient No apparent distress IV cath intact upon removal Pt in wheelchair at baseline aox4
== END 2022-09-24 19:44 | disposition home or self-care (01) ==
PROVIDERS: Nurse Practitioner Family; Physician Assistant Medical; Emergency Provider Emergency Medicine
DX: R10.10 Upper abdominal pain, unspecified (principal); R11.2 Nausea with vomiting, unspecified; Z20.822 Contact with and (suspected) exposure to COVID-19; E11.69 Type 2 diabetes mellitus with other specified complication; M86.9 Osteomyelitis, unspecified; Z89.512 Acquired absence of left leg below knee; I10 Essential (primary) hypertension; Z79.4 Long term (current) use of insulin; Z79.899 Other long term (current) drug therapy; Z79.2 Long term (current) use of antibiotics
CPT/HCPCS: 36410; 36415; 74176; 80048; 80076; 81001; 83690; 84484; 85025; 87635; 93005; 96374; 99284; 99285; J2270; J2405; J2765

== ENCOUNTER 2022-09-26 09:49 | Inpatient (IN) | payer OTHER, SELFPAY ==
--- NOTE | ~2022-09-26 | XR_ITS ---
Examination: Right foot and KUB. Clinical indications: Rule out osteoma right foot. COMPARISON: Right foot 06/13/2022 and 06/18/2022. TECHNIQUE: 3 views right foot and 2 views KUB. FINDINGS: Right Foot: There is mild hallux valgus deformity right foot. There is a soft tissue ulceration along the lateral hindfoot to this skin surface of plantar region. No bony erosive changes seen to suspect any osteomyelitis. There is loss of joint space and spurring along the intertarsal joints. There is a ymuut-[id number] enthesophyte along calcaneal heel. KUB: There is scattered stool and gas seen in the colon without distention. There is no organomegaly. No radiopaque renal or gallbladder calculi. No gross bony abnormality. XR/XR KUB IMPRESSION: 1. Mild hallux valgus deformity right foot. There is a soft tissue ulceration along the lateral hindfoot to the skin surface of plantar region. No bony erosive changes to suspect any osteomyelitis. 2. Mild degenerative changes intertarsal joints and small calcaneal heel enthesophyte. 3. Mild constipation on KUB.
--- NOTE | ~2022-09-26 | XR_ITS ---
Examination: Right foot and KUB. Clinical indications: Rule out osteoma right foot. COMPARISON: Right foot 06/13/2022 and 06/18/2022. TECHNIQUE: 3 views right foot and 2 views KUB. FINDINGS: Right Foot: There is mild hallux valgus deformity right foot. There is a soft tissue ulceration along the lateral hindfoot to this skin surface of plantar region. No bony erosive changes seen to suspect any osteomyelitis. There is loss of joint space and spurring along the intertarsal joints. There is a kmter-mk-yzqopgzi enthesophyte along calcaneal heel. KUB: There is scattered stool and gas seen in the colon without distention. There is no organomegaly. No radiopaque renal or gallbladder calculi. No gross bony abnormality. XR/XR foot RT min 3V IMPRESSION: 1. Mild hallux valgus deformity right foot. There is a soft tissue ulceration along the lateral hindfoot to the skin surface of plantar region. No bony erosive changes to suspect any osteomyelitis. 2. Mild degenerative changes intertarsal joints and small calcaneal heel enthesophyte. 3. Mild constipation on KUB.
--- NOTE | ~2022-09-26 | XR_ITS ---
EXAMINATION: XR CHEST CLINICAL INFORMATION: Elevated BNP COMPARISON: Previous chest x-ray most recent 09/12/2021 TECHNIQUE: 2 views of the chest were obtained. FINDINGS: The cardiac silhouette is enlarged but stable. There are increased central bronchovascular markings. There is airspace disease seen projecting over lower thoracic spine on the lateral view suggestive of lower lobe infiltrate. There may be a small right pleural effusion. There are degenerative changes of the spine. XR/XR chest 2V IMPRESSION: Stable enlargement of the cardiac silhouette. Increased central bronchovascular markings and lower lobe airspace disease suggestive of pneumonia.
[2022-09-26 09:54] VITALS: BP 114/73; BP 122/78; PULSE 91; PULSE 97; RESP 20; TEMP 36.5; O2SAT 97; O2SAT 98; BMI 26.5
[2022-09-26 10:12] LABS: Glucose, Whole Blood 202 mg/dL (60-115)
--- NOTE | 2022-09-26 10:19 | ED.GENADULT ---
HPI - General Adult General Chief complaint: General Medical Stated complaint: LLE AMP X1 WK,ABD PAIN & WEAKNESS PER EMS Time Seen by Provider: 09/26/22 10:08 Source: patient and old records reviewed Mode of arrival: EMS History of Present Illness HPI narrative: 52-year-old female with a past medical history of asthma, ACS, atrial tachycardia, COPD, DM, HTN, GERD, recent osteomyelitis of LLE requiring L BKA on 09/20 discharge from our facility on 09/21 on 14 days of cefuroxime/doxycycline, presenting to the ED today complaining of persistent diffuse abdominal pain, nausea, vomiting, decreased p.o. intake. Also reports SOB. Reports feels symptoms are related to her oral antibiotics. Patient recently seen and treated in our ED on 09/24 for similar symptoms, had leukocytosis 15.5 & CT showing small to moderate abdominal ascites and small dependent bilateral effusions, otherwise patient was discharged home. Admits symptoms unchanged since then. Denies fever, chills, diarrhea, dysuria/hematuria, erythema or drainage to postsurgical site. Last BM 3 days ago Onset (ago): day(s) Related Data Home Medications Medication Instructions Recorded Confirmed umeclidinium 62.5 mcg/actuation 1 puff PO DAILY 10/31/21 09/26/22 blister powder for inhalation (Incruse Ellipta) montelukast 10 mg tablet 1 tab PO BEDTIME 02/13/22 09/26/22 insulin glargine 100 unit/mL (3 20 unit subcut BID 03/23/22 09/26/22 mL) subcutaneous pen (Lantus Solostar U-100 Insulin) gabapentin 300 mg capsule 2 cap PO BID 05/01/22 09/15/22 albuterol sulfate 2.5 mg/3 mL 1 vial inhalation Q6H PRN Wheezing 06/19/22 09/26/22 (0.083 %) solution for nebulization albuterol sulfate 90 mcg/actuation 1 puff inhalation Q4H PRN Wheezing 06/19/22 09/26/22 aerosol inhaler (Ventolin HFA) lisinopril 20 mg tablet 20 mg PO DAILY 09/08/22 09/26/22 furosemide 40 mg tablet 40 mg PO BID 09/12/22 09/26/22 oxycodone 5 mg tablet 5 mg PO Q6H PRN Pain (Scale Score 09/26/22 09/26/22 4-6) Previous Rx's Medication Instructions Recorded acetaminophen 325 mg tablet 650 mg PO Q8H PRN Pain, Mild (Pain 09/21/22 Scale 1-3) 30 days #90 tabs aspirin 81 mg tablet,delayed 81 mg PO DAILY 30 days #30 tabs 09/21/22 release atorvastatin 80 mg tablet 80 mg PO BEDTIME 30 days #30 tabs 09/21/22 carvedilol 3.125 mg tablet 3.125 mg PO BID 30 days #60 tabs 09/21/22 cefuroxime axetil 500 mg tablet 500 mg PO BID 14 days #28 tabs 09/21/22 doxycycline hyclate 100 mg tablet 100 mg PO BID 14 days #28 tabs 09/21/22 gabapentin 100 mg capsule 200 mg PO BID 10 days #40 caps 09/21/22 polyethylene glycol 3350 17 gram 17 g PO DAILY PRN Constipation 5 09/21/22 oral powder packet days #30 ea ticagrelor 90 mg tablet (Brilinta) 90 mg PO BID 30 days #60 tabs 09/21/22 ondansetron 4 mg disintegrating 4 mg PO Q8H 3 days #9 tabs 09/24/22 tablet Allergies Allergy/AdvReac Type Severity Reaction Status Date / Time Penicillins [PENICILLINS] Allergy Severe RASH Verified 09/22/22 14:31 amoxicillin [AMOXICILLIN] Allergy Intermediate HIVES Verified 09/22/22 14:31 codeine Allergy Itching Verified 09/22/22 14:31 Review of Systems Review of Systems: Constitutional: No Fever, No Chills, No Fatigue, No Malaise ENT/Mouth: No Hearing loss, No Ear Pain, No sore throat, No Rhinorrhea, No Swallowing Difficulty Eyes: No Eye Pain, No Swelling, No Vision Changes Cardiovascular: No Chest Pain, + SOB, +Edema, No Palpitations, + orthopnea Respiratory: No Cough, No Sputum, No Dyspnea Gastrointestinal: + Nausea, + Vomiting, No Diarrhea, No Constipation, + Abdominal pain Genitourinary: No irregular bleeding, No Dysuria, No Urinary Frequency, No Hematuria, No Flank Pain, No Urinary Flow Changes, No Hesitancy Musculoskeletal: No joint pain, No Myalgias, No Joint Swelling Skin: + Skin Lesions, No rash Neuro: No Weakness, No Numbness, No Paresthesias, No Headache Yes all other systems are reviewed and are negative Constitutional: Constitutional: Reports as per [facility] Past Medical History Attestation statement: The following information was validated with the patient. Medical History Asthma Atherosclerotic cardiovascular disease Atrial tachycardia Below-knee amputation of left lower extremity Cellulitis in diabetic foot COPD (chronic obstructive pulmonary disease) Coronary artery disease COVID-19 vaccine series completed Diabetes Diabetic foot infection Diabetic foot infection Diabetic foot ulcer Diabetic toe ulcer Essential hypertension GERD (gastroesophageal reflux disease) Hyperglycemia due to diabetes mellitus Hypertension Ischemic cardiomyopathy Left against medical advice Left against medical advice Osteomyelitis Osteomyelitis 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 PAD (peripheral artery disease) Surgical History History of esophagogastroduodenoscopy (EGD) History of toe surgery (09/22/21) Status post below-knee amputation of left lower extremity (09/20/22) Family History Family History Mother Hx of CABG Sister CAD (coronary artery disease) Social History Social History Household Members: Family and Children Housing: Apartment Do you presently have visiting nurse or other home services: No Unable to assess alcohol history related to: Refusing to respond Alcohol intake: current Alcohol intake frequency: does not drink Alcohol type: other Patient Tobacco Use Status: Current everyday Tobacco user Tobacco use type: Cigarette Cigarette Packs Per Day: 0.5 Cigarettes Per Day: 6 Years Smoked: 43 Smoked in Last 30 Days: Yes e-Cigarette/Vaping Use: Currently Using Second Hand Smoke Exposure: Yes Use of substances other than those prescribed or required for medical reasons: No Substance Use Type: Marijuana Advance Directives: Yes Advance Directives on File: Yes Advance Directives Date on File: 12/28/20 Patient : No service: No Current occupational status: unemployed and disabled Physical Exam ED Vital Signs: Vital Signs - 24 hr 09/26/22 09:54 09/26/22 13:29 09/26/22 13:36 Temperature 97.7 F Pulse Rate 91 96 98 Respiratory Rate 20 12 20 Blood Pressure 114/73 112/71 Pulse Oximetry 97 100 Oxygen Delivery Method Room Air Room Air BMI result Body Mass Index 26.5 Const General: cooperative, healthy appearing and no acute distress Orientation/consciousness: patient oriented x3 Limitations: no limitations HENMT Head: Yes normal to inspection and Yes atraumatic Ears: hearing grossly normal bilaterally General nose exam: Normal external nose present Face and sinus: Yes normal facial exam Eyes General: appearance normal, both eyes and all related structures EOM: EOMs intact bilaterally Neck Neck: Yes normal visual inspection and Yes no meningeal signs Resp Effort & Inspection: normal respiratory effort and no respiratory distress Auscultation: crackles bilateral at the base Cardio Rate: regular rate Heart sounds: S1 normal heart sound present and S2 normal heart sound present GI Inspection: Yes normal to inspection and Yes abdominal wall ecchymosis (Reportedly from sq Lovenox from prior admission) Palpation (GI): Soft to palpation, Tenderness to palpation present (GI) (lower abdomen) with no rebound tenderness, no guarding and not rigid Skin Rashes: no rashes Wounds: no wounds Neuro General: patient oriented x3, tone normal, moves all extremities and no meningeal signs Extrem Other: Patient for to imaging as above. Right foot with lateral ulcer, appears clean. No erythema/warmth or drainage. Nontender Left BKA as depicted above. Harley intact. Slight erythema, no warmth, no drainage, no fluctuance/induration General: Yes edema (2+ RLE pitting edema) Course Course Course Narrative: -1256--no leukocytosis. H&H with 3 point drop from 2 days ago > patient denies melena, bloody stools or hematemesis. will obtain occult stool -potassium mildly low to 3.2 >> 60 mEq p.o. repletion ordered -acute on chronically elevated T bili and D bili -BNP acute on chronically elevated to 4803 > patient reports worsening SOB and orthopnea. RLE pitting edema noted. Will give 40 mg of IV Lasix. Plan will be for admission -troponin acute on chronically elevated will trend 1533--XR chest 2V IMPRESSION: Stable enlargement of the cardiac silhouette. Increased central bronchovascular markings and lower lobe airspace disease suggestive of pneumonia. ? >> lactic/blood cultures and empiric IV antibiotics ordered. > lower suspicion for pneumonia likely fluid overload. Plan to admit for further management. Medications Administered Discontinued Medications Generic Name Dose Route Start Last Admin Trade Name Freq PRN Reason Stop Dose Admin Al Hydroxide/Mg Hydroxide 30 ml 09/26/22 10:41 09/26/22 11:37 Magnesium Hydrox/Alum Hydrox 30 Ml Oral.Susp PO 09/26/22 10:42 Not Given ONCE ONE Albuterol/Ipratropium 3 ml 09/26/22 13:12 09/26/22 13:35 Albuterol/Iprat 2.5/0.5mg 3 Ml Ampul.Neb INHALE 09/26/22 13:13 3 ml ONCE ONE Administration Famotidine 20 mg 09/26/22 10:41 09/26/22 11:34 Famotidine/Pf 20 Mg/2 Ml Vial IVPUSH 09/26/22 10:42 20 mg ONCE ONE Administration Furosemide 40 mg 09/26/22 13:02 09/26/22 13:23 Furosemide 40 Mg/4 Ml Vial IVPUSH 09/26/22 13:03 40 mg STAT STA Administration Protocol Morphine Sulfate 2 mg 09/26/22 10:41 09/26/22 11:34 Morphine Sulfate 2 Mg/Ml Cartridge IVPUSH 09/26/22 10:42 2 mg ONCE ONE Administration Protocol Ondansetron HCl 4 mg 09/26/22 10:41 09/26/22 11:34 Ondansetron Hcl 4 Mg/2 Ml Vial IVPUSH 09/26/22 10:42 4 mg ONCE ONE Administration Potassium Chloride 60 meq 09/26/22 12:58 09/26/22 13:23 Potassium Chloride Er 20 Meq Tab.Er.Prt PO 09/26/22 12:59 60 meq ONCE ONE Administration Medical Decision Making Medical Decision Making MDM Narrative: 52-year-old female with a past medical history of asthma, ACS, atrial tachycardia, COPD, DM, HTN, GERD, recent osteomyelitis of LLE requiring L BKA on 09/20 discharge from our facility on 09/21 on 14 days of cefuroxime/doxycycline, presenting to the ED today complaining of persistent diffuse abdominal pain, nausea, vomiting, decreased p.o. intake, & SOB. On exam vital signs stable, NAD, nontoxic appearing, physical exam as noted above. Abdomen soft, healing ecchymosis from subcu Lovenox noted, +ttp lower abdomen without rebound or guarding. Left BKA as above which appears appropriately healing. + bibasilar crackles and R LE 2+ pitting edema. Concern for constipation vs medication reaction vs dehydration/metabolic abnormality vs CHF/pneumonia or asthma exacerbation. Lower suspicion for SBO, appendicitis/diverticulitis with recent negative CT. Low suspicion for SBP Plan: Labs, UA, KUB, foot x-ray, pain control/IVF Please refer to course for remaining clinical decision making, interpretation of labs/imaging results, and discussions with consultants and/or family members. Differential Diagnosis Differential Diagnoses: The differential diagnosis associated with the presentation includes As above Admission/Observation Consideration of admission/observation: Escalation of care including admission/observation considered Lab Data MDM Lab Attestation statement: I reviewed the patient's lab results. 09/26/22 11:22 09/26/22 11:22 Labs: Lab Results 09/26/22 09/26/22 09/26/22 Range/Units 10:09 10:45 11:22 WBC 8.1 (4.8-10.8) X10*3/uL RBC 4.43 D (4.20-5.50) X10*6/uL Hgb 8.6 L D (12.0-16.0) g/dl Hct 30.0 L D (37.0-47.0) % MCV 67.7 L (80.0-98.0) fL MCH 19.4 L (27.0-33.0) pg MCHC 28.7 L (31.0-35.0) g/dl RDW 22.3 H (11.0-16.0) % Plt Count 165 (160-400) X10*3/uL MPV Not Reportable Immature Gran % (Auto) 0.4 (0.0-0.4) % Neut % (Auto) 80.7 H (45-73) % Lymph % (Auto) 12.3 L (20-40) % [place] % (Auto) 5.9 (2-11) % Eos % (Auto) 0.2 (0-4) % Baso % (Auto) 0.5 (0-2) % Lymph # (Auto) 1.0 L (1.2-4.9) X10*3/uL [place] # (Auto) 0.5 (0.1-1.2) X10*3/uL Eos # (Auto) 0.0 (0.0-0.4) X10*3/uL Baso # (Auto) 0.0 (0.0-0.2) X10*3/uL Abs Immat Gran (auto) 0.03 (0.00-0.03) X10*3/uL Absolute Neuts (auto) 6.5 (2.0-8.3) x10*3/uL Absolute Nucleated RBC 0.000 (0.0-0.012) X10*3/uL Nucleated RBC % (auto) 0.0 (0.0-0.2) /100WBC Sodium (135-145) mmol/L Potassium (3.3-5.1) mmol/L Chloride (96-108) mmol/L Carbon Dioxide (22-29) mmol/L Anion Gap (12-20) BUN (9-16) mg/dL Creatinine (0.5-1.4) mg/dL Estim Creat Clear Calc Estimated GFR POC Glucose 202 H (60-115) mg/dL Random Glucose (60-115) mg/dL Calcium (8.4-10.2) mg/dL Total Bilirubin (0.0-1.0) mg/dL Direct Bilirubin (0.0-0.5) mg/dL AST (5-31) U/L ALT (0-31) U/L Alkaline Phosphatase (39-117) U/L Troponin I High Sens (<3.5-17.0) ng/L B-Natriuretic Peptide (<100) pg/mL Total Protein (6.5-8.0) g/dL Albumin (3.5-5.0) g/dL Lipase (8-78) U/L Urine Color Yellow Urine Appearance Clear Urine pH 8.0 (5.0-9.0) Ur Specific [place] <= 1.005 (1.005-1.025) Urine Protein Negative (Neg-Trace) mg/dL Urine Glucose (UA) Negative (Negative) mg/dL Urine Ketones Negative (Negative) mg/dL Urine Blood Negative (Negative) Urine Nitrite Negative (Negative) Ur Leukocyte Esterase Small (1+) H (Negative) Urine RBC 0-2 (0-2) /HPF Urine WBC 0-5 (0-5) /HPF Ur Squamous Epith Cells 3-5 (0-2) /HPF Urine Bacteria None Seen (None Seen) Hyaline Casts 0-2 (0-2) /LPF Stool Occult Blood (NEGATIVE) 09/26/22 09/26/22 09/26/22 Range/Units 11:22 11:22 13:18 WBC (4.8-10.8) X10*3/uL RBC (4.20-5.50) X10*6/uL Hgb (12.0-16.0) g/dl Hct (37.0-47.0) % MCV (80.0-98.0) fL MCH (27.0-33.0) pg MCHC (31.0-35.0) g/dl RDW (11.0-16.0) % Plt Count (160-400) X10*3/uL MPV Immature Gran % (Auto) (0.0-0.4) % Neut % (Auto) (45-73) % Lymph % (Auto) (20-40) % [place] % (Auto) (2-11) % Eos % (Auto) (0-4) % Baso % (Auto) (0-2) % Lymph # (Auto) (1.2-4.9) X10*3/uL [place] # (Auto) (0.1-1.2) X10*3/uL Eos # (Auto) (0.0-0.4) X10*3/uL Baso # (Auto) (0.0-0.2) X10*3/uL Abs Immat Gran (auto) (0.00-0.03) X10*3/uL Absolute Neuts (auto) (2.0-8.3) x10*3/uL Absolute Nucleated RBC (0.0-0.012) X10*3/uL Nucleated RBC % (auto) (0.0-0.2) /100WBC Sodium 140 (135-145) mmol/L Potassium 3.2 L (3.3-5.1) mmol/L Chloride 94 L (96-108) mmol/L Carbon Dioxide 37 H (22-29) mmol/L Anion Gap 12 (12-20) BUN 12 (9-16) mg/dL Creatinine 0.83 (0.5-1.4) mg/dL Estim Creat Clear Calc 74.2 Estimated GFR > 60 POC Glucose (60-115) mg/dL Random Glucose 194 H (60-115) mg/dL Calcium 8.6 (8.4-10.2) mg/dL Total Bilirubin 2.2 H (0.0-1.0) mg/dL Direct Bilirubin 0.9 H (0.0-0.5) mg/dL AST 9 (5-31) U/L ALT 14 (0-31) U/L Alkaline Phosphatase 84 (39-117) U/L Troponin I High Sens (<3.5-17.0) ng/L B-Natriuretic Peptide 4803 H (<100) pg/mL Total Protein 5.7 L (6.5-8.0) g/dL Albumin 2.9 L (3.5-5.0) g/dL Lipase < 4 L (8-78) U/L Urine Color Urine Appearance Urine pH (5.0-9.0) Ur Specific [place] (1.005-1.025) Urine Protein (Neg-Trace) mg/dL Urine Glucose (UA) (Negative) mg/dL Urine Ketones (Negative) mg/dL Urine Blood (Negative) Urine Nitrite (Negative) Ur Leukocyte Esterase (Negative) Urine RBC (0-2) /HPF Urine WBC (0-5) /HPF Ur Squamous Epith Cells (0-2) /HPF Urine Bacteria (None Seen) Hyaline Casts (0-2) /LPF Stool Occult Blood NEGATIVE (NEGATIVE) 09/26/22 Range/Units 14:39 WBC (4.8-10.8) X10*3/uL RBC (4.20-5.50) X10*6/uL Hgb (12.0-16.0) g/dl Hct (37.0-47.0) % MCV (80.0-98.0) fL MCH (27.0-33.0) pg MCHC (31.0-35.0) g/dl RDW (11.0-16.0) % Plt Count (160-400) X10*3/uL MPV Immature Gran % (Auto) (0.0-0.4) % Neut % (Auto) (45-73) % Lymph % (Auto) (20-40) % [place] % (Auto) (2-11) % Eos % (Auto) (0-4) % Baso % (Auto) (0-2) % Lymph # (Auto) (1.2-4.9) X10*3/uL [place] # (Auto) (0.1-1.2) X10*3/uL Eos # (Auto) (0.0-0.4) X10*3/uL Baso # (Auto) (0.0-0.2) X10*3/uL Abs Immat Gran (auto) (0.00-0.03) X10*3/uL Absolute Neuts (auto) (2.0-8.3) x10*3/uL Absolute Nucleated RBC (0.0-0.012) X10*3/uL Nucleated RBC % (auto) (0.0-0.2) /100WBC Sodium (135-145) mmol/L Potassium (3.3-5.1) mmol/L Chloride (96-108) mmol/L Carbon Dioxide (22-29) mmol/L Anion Gap (12-20) BUN (9-16) mg/dL Creatinine (0.5-1.4) mg/dL Estim Creat Clear Calc Estimated GFR POC Glucose (60-115) mg/dL Random Glucose (60-115) mg/dL Calcium (8.4-10.2) mg/dL Total Bilirubin (0.0-1.0) mg/dL Direct Bilirubin (0.0-0.5) mg/dL AST (5-31) U/L ALT (0-31) U/L Alkaline Phosphatase (39-117) U/L Troponin I High Sens 56.8 H* (<3.5-17.0) ng/L B-Natriuretic Peptide (<100) pg/mL Total Protein (6.5-8.0) g/dL Albumin (3.5-5.0) g/dL Lipase (8-78) U/L Urine Color Urine Appearance Urine pH (5.0-9.0) Ur Specific [place] (1.005-1.025) Urine Protein (Neg-Trace) mg/dL Urine Glucose (UA) (Negative) mg/dL Urine Ketones (Negative) mg/dL Urine Blood (Negative) Urine Nitrite (Negative) Ur Leukocyte Esterase (Negative) Urine RBC (0-2) /HPF Urine WBC (0-5) /HPF Ur Squamous Epith Cells (0-2) /HPF Urine Bacteria (None Seen) Hyaline Casts (0-2) /LPF Stool Occult Blood (NEGATIVE) Radiology Impression Discussion of test interpretation with radiology: I have reviewed the radiologist's reading. External Record Review External record reviewed: Inpatient record, Office record, Outpatient record, Prior outpatient labs, Prior outpatient radiology, Primary care record and Outside ED record Critical Care Time Critical Care Time Critical Care Time: Yes Total Critical Care Time: 45 Attestation: I have personally provided critical care time exclusive of time spent on separately billable procedures. Time includes review of lab data, radiology results, discussion with consultants, and monitoring for potential decompensation. Intervention performed as documented. Discharge Plan Discharge Clinical Impression: Congestive heart failure (CHF), Abdominal pain Patient Disposition: Admitted As Inpatient
--- NOTE | 2022-09-26 10:21 | PC.NURSE ---
Pt reports 10/10 increase intermittent all over ABD pain since getting new medications x 4 days ago, does not recall meds. States pain is stabbing and when I take the pills it's an all day thing . Pt has a recent below the knee left leg amputation with dry, intact AIDAN bandage. No ABD tenderness reported, + bowel sounds x 4 quadrants, reports last BM 2 days ago. VSS.
[2022-09-26 10:54] LABS: Appearance Urine Clear; Color Urine Yellow; Glucose Urine UA Negative (Negative); Leukocyte Esterase Urine Small (1+) (Negative); Nitrite Urine Negative (Negative); Specific Gravity - Urine <= 1.005 (1.005-1.025); UMIC TRIGGER UACC YES; Urine Blood Negative (Negative); Urine Ketones Negative (Negative); Urine Protein Negative (Neg-Trace)
[2022-09-26 11:01] LABS: Bacteria Urine None Seen (None Seen); Hyaline Casts Urine 0-2 /LPF (0-2); RBC Urine 0-2 /HPF (0-2); UACC Culture Trigger YES; WBC Urine 0-5 /HPF (0-5)
[2022-09-26 11:29] LABS: MANUAL DIFF FLAG NO
[2022-09-26] MEDS: Famotidine/PF 20 MG/2 ML VIAL IVPUSH (11:34)
[2022-09-26] MEDS: Morphine Sulfate 2 MG/ML CARTRIDGE IVPUSH ×2 (11:34→18:56)
[2022-09-26] MEDS: ondansetron HCL 4 MG/2 ML VIAL IVPUSH (11:34)
[2022-09-26 11:36] LABS: Basophils Percent Auto 0.5 % (0-2); Eosinophils Percent Auto 0.2 % (0-4); Hemoglobin 8.6 g/dl (12.0-16.0); Imm Gran Abs Auto 0.03 X10*3/uL (0.00-0.03); Imm Gran Pct Auto 0.4 % (0.0-0.4); Lymphocytes Percent Auto 12.3 % (20-40); Mean Corpuscular HGB Conc 28.7 g/dl (31.0-35.0); Mean Corpuscular Hemoglobin 19.4 pg (27.0-33.0); Mean Corpuscular Volume 67.7 fL (80.0-98.0); Monocytes Absolute Auto 0.5 X10*3/uL (0.1-1.2); Monocytes Percent Auto 5.9 % (2-11); Neutrophils Absolute Auto 6.5 x10*3/uL (2.0-8.3); Neutrophils Percent Auto 80.7 % (45-73); Platelet Count 165 X10*3/uL (160-400); Red Blood Count 4.43 X10*6/uL (4.20-5.50); Red Cell Distribution Width 22.3 % (11.0-16.0); White Blood Count 8.1 X10*3/uL (4.8-10.8)
[2022-09-26 11:49] LABS: Alanine Aminotransferase 14 U/L (0-31); Albumin Level 2.9 g/dL (3.5-5.0); Alkaline Phosphatase 84 U/L (39-117); Anion Gap 12 (12-20); Aspartate Amino Transferase 9 U/L (5-31); Bilirubin Direct 0.9 mg/dL (0.0-0.5); Bilirubin Total 2.2 mg/dL (0.0-1.0); Blood Urea Nitrogen 12 mg/dL (9-16); Calcium 8.6 mg/dL (8.4-10.2); Carbon Dioxide 37 mmol/L (22-29); Chloride 94 mmol/L (96-108); Creatinine Clr Calc Pharmacy 74.2; Estimated Glomerular Filt Rate > 60; Glucose Random 194 mg/dL (60-115); Lipase < 4 U/L (8-78); Potassium 3.2 mmol/L (3.3-5.1); Sodium 140 mmol/L (135-145); Total Protein 5.7 g/dL (6.5-8.0)
[2022-09-26 11:52] LABS: B Type Natriuretic Peptide 4803 pg/mL (<100)
[2022-09-26] MEDS: Furosemide 40 MG/4 ML VIAL IVPUSH (13:23)
[2022-09-26] MEDS: Potassium Chloride ER 20 MEQ TAB.ER.PRT 60 MEQ PO (13:23)
[2022-09-26 13:24] LABS: OBS Int Ctl Valid YES; OBS1 NEGATIVE (NEGATIVE)
[2022-09-26 13:29] VITALS: BP 112/71; PULSE 96; RESP 12; O2SAT 100
[2022-09-26] MEDS: Albuterol/Iprat 2.5/0.5MG 3 ML AMPUL.NEB INHALE (13:35)
[2022-09-26 13:36] VITALS: PULSE 98; RESP 20; O2SAT 95
--- NOTE | 2022-09-26 13:42 | ECG_ITS ---
Test Reason : cp Blood Pressure : / mmHG Vent. Rate : 095 BPM Atrial Rate : 095 BPM P-R Int : 160 ms QRS Dur : 090 ms QT Int : 394 ms P-R-T Axes : 081 079 102 degrees QTc Int : 495 ms Normal sinus rhythm Low voltage QRS Cannot rule out Anterior infarct (cited on or before 13-JUN-2022) Abnormal ECG When compared with ECG of 24-SEP-2022 15:23, No significant change was found Referred By: Liya Corrales Electronically Signed By:WENDY JIMNEES
--- NOTE | 2022-09-26 13:45 | PC.NURSE ---
PT STATES SUBSTERNAL CP, DESCRIBED A PRESSURE. NO CHANGES OBSERVED ON [employer], PA NOTIFIED, EKG ENTERED.
--- NOTE | 2022-09-26 13:50 | PHA.MEDREC ---
Pharmacy Consult ? Medication Reconciliation Pharmacy has completed the medication reconciliation. discharge paperwork used from 09/21
[2022-09-26 15:10] LABS: Troponin-I High Sensitivity 56.8 ng/L (<3.5-17.0)
--- NOTE | 2022-09-26 15:51 | PC.NURSE ---
PHLEBOTOMY AT BEDSIDE FOR BLOOD DRAW. ABX TO BE ADMINISTERED AFTER BC X2 ARE DRAWN. PT C/O BACK PAIN, GIVEN PILLOWS AND REPOSITIONED FOR COMFORT.
--- NOTE | 2022-09-26 15:51 | PM.IMHP ---
History of Present Illness Date of Service: 09/26/22 Attending physician on admission: Jaren Schrader Chief Complaint: I have pain everywhere, I need steroids This is a 52-year-old female with a past medical history as noted below presented to the emergency department with complaints of persistent diffuse abdominal pain, unable to tolerate p.o. intake, nausea, vomiting and shortness of breath. Patient continues to state that she needs ?steroids and better pain control? and ?is upset because I am only getting oral pain medication?. Patient is currently denying chest pain, shortness of breath at rest, psychological 19 exposure/contacts. Of note, patient was seen in this emergency department on 09/21/2022 and was discharged on 14 days of cefuroxime/doxycycline which patient reports compliance, patient is also seen on 09/24 for similar symptoms and at that time the CT was performed which revealed small/moderate abdominal ascites, small dependent bilateral effusions however patient was sent home to continue previously prescribed regimen. Chest x-ray:Stable enlargement of the cardiac silhouette. Increased central bronchovascular markings and lower lobe airspace disease suggestive of pneumonia. Foot x-ray: Pending at time of this dictation KUB x-ray: Pending at time of this dictation CT abdomen and pelvis without (09/24/2022):1. Small to moderate volume of abdominal ascites. 2. Splenomegaly. 3. Stable left adrenal nodule. 4. Small dependent bilateral pleural effusions. Small pericardial effusion. Initial laboratory results: Hgb & Hct 8.6/30, platelets 165, K+ 3.2, chloride 94, common FA 37, random glucose 194, lactic acid and blood cultures obtained and pending, total bilirubin 2.2, direct bili 0.9, troponin had sensitivity 67.5 with a repeat of 56.8, BNP 48 with 3, total protein 5.7, albumin 2.9, lipase less than 4, urinalysis negative for infection, guaiac stool negative. In the emergency department the patient received 4 mg IVP some friend, 30 mL of Maalox, 20 mg IV famotidine, 2 mg IV morphine sulfate, 60 mEq p.o. K+ chloride, 40 mg IVP Lasix, 3 mL albuterol/ipratropium nebulized, 2 g of IV cefepime and 5 mg p.o. oxycodone. The decision was made to admit patient for medical management. Review of Systems Review of Systems: A complete 12 point review of systems was performed and are negative if not noted in HPI. [facility] Medical History Asthma Atherosclerotic cardiovascular disease Atrial tachycardia Below-knee amputation of left lower extremity Cellulitis in diabetic foot COPD (chronic obstructive pulmonary disease) Coronary artery disease COVID-19 vaccine series completed Diabetes Diabetic foot infection Diabetic foot infection Diabetic foot ulcer Diabetic toe ulcer Essential hypertension GERD (gastroesophageal reflux disease) Hyperglycemia due to diabetes mellitus Hypertension Ischemic cardiomyopathy Left against medical advice Left against medical advice Osteomyelitis Osteomyelitis 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 PAD (peripheral artery disease) Family History Mother Hx of CABG Sister CAD (coronary artery disease) Surgical History History of esophagogastroduodenoscopy (EGD) History of toe surgery (09/22/21) Status post below-knee amputation of left lower extremity (09/20/22) Social History Household Members: Family and Children Housing: Apartment Do you presently have visiting nurse or other home services: No Unable to assess alcohol history related to: Refusing to respond Alcohol intake: current Alcohol intake frequency: does not drink Alcohol type: other Patient Tobacco Use Status: Current everyday Tobacco user Tobacco use type: Cigarette Cigarette Packs Per Day: 0.5 Cigarettes Per Day: 6 Years Smoked: 43 Smoked in Last 30 Days: Yes e-Cigarette/Vaping Use: Currently Using Second Hand Smoke Exposure: Yes Use of substances other than those prescribed or required for medical reasons: No Substance Use Type: Marijuana Advance Directives: Yes Advance Directives on File: Yes Advance Directives Date on File: 12/28/20 Nutrition Risks: Poor intake 0-25% >4 days Patient : No service: No Current occupational status: unemployed and disabled Meds Allergies Allergy/AdvReac Type Severity Reaction Status Date / Time Penicillins [PENICILLINS] Allergy Severe RASH Verified 09/22/22 14:31 amoxicillin [AMOXICILLIN] Allergy Intermediate HIVES Verified 09/22/22 14:31 codeine Allergy Itching Verified 09/22/22 14:31 Active Medications: Current Medications Cefepime HCl 2 gm/ Sodium (Chloride) 50 mls @ 100 mls/hr IV ONCE ONE Stop: 09/26/22 16:04 Home Medications Medication Instructions Recorded Confirmed Last Taken Type umeclidinium 62.5 mcg/actuation 1 puff PO DAILY 10/31/21 09/26/22 09/07/22 History blister powder for inhalation (Incruse Ellipta) montelukast 10 mg tablet 1 tab PO BEDTIME 02/13/22 09/26/22 09/07/22 History insulin glargine 100 unit/mL (3 20 unit subcut BID 03/23/22 09/26/22 09/07/22 History mL) subcutaneous pen (Lantus Solostar U-100 Insulin) gabapentin 300 mg capsule 2 cap PO BID 05/01/22 09/15/22 09/07/22 History albuterol sulfate 2.5 mg/3 mL 1 vial inhalation Q6H PRN Wheezing 06/19/22 09/26/22 09/07/22 History (0.083 %) solution for nebulization albuterol sulfate 90 mcg/actuation 1 puff inhalation Q4H PRN Wheezing 06/19/22 09/26/22 09/07/22 History aerosol inhaler (Ventolin HFA) lisinopril 20 mg tablet 20 mg PO DAILY 09/08/22 09/26/22 09/07/22 History furosemide 40 mg tablet 40 mg PO BID 09/12/22 09/26/22 Unknown History oxycodone 5 mg tablet 5 mg PO Q6H PRN Pain (Scale Score 09/26/22 09/26/22 Unknown History 4-6) Physical Exam Vital Signs and Narrative: Vital Signs: Last Vital Signs Temp 97.7 F 09/26/22 09:54 Pulse 98 09/26/22 13:36 Resp 20 09/26/22 13:36 BP 112/71 09/26/22 13:29 Pulse Ox 100 09/26/22 13:29 O2 Del Method Room Air 09/26/22 13:29 BMI result Body Mass Index 26.5 Const: Other: General: Appears stated age, in no acute distress, answers questions accurately and appropriately. Skin: Warm and well perfused, no obvious lesions, bruises, open wounds or sores Cardiology: Regular rate and rhythm, no murmurs, rubs, gallops or clicks, no JVD or carotid bruits appreciated Respiratory: Bilateral crackles noted at bases, no wheezing, rales or rhonchi, no increased accessory muscle use noted Abdomen: Soft, rounded, slightly tender to generalized abdominal region with palpation, ecchymotic area noted abdominal wall, bowel sounds active in all 4 quadrants, no abdominal guarding or [place] sign Left lower Extremity: Left BKA noted to be wrapped in dressing, no swelling/erythema surrounding dressing site, there was no bleeding noted to the area/dressing. No edema noted to knee/thigh. Right lower extremity: Foot ankle cold touch, there is a small wound noted to great left toe. No edema noted. Neuro: Alert and oriented x3, no obvious focal deficits Psych: Anxious, repeatedly asking for ?pain medication?, appropriate, needs frequent redirection, follows commands, no agitation restlessness noted Results Labs 09/26/22 11:22 09/26/22 11:22 Labs: Laboratory Results - last 24 hr 09/26/22 09/26/22 09/26/22 10:09 10:45 11:22 MCV 67.7 L MCH 19.4 L MCHC 28.7 L RDW 22.3 H Plt Count 165 MPV Not Reportable Immature Gran % (Auto) 0.4 Neut % (Auto) 80.7 H Lymph % (Auto) 12.3 L Branch % (Auto) 5.9 Eos % (Auto) 0.2 Baso % (Auto) 0.5 Lymph # (Auto) 1.0 L Branch # (Auto) 0.5 Eos # (Auto) 0.0 Baso # (Auto) 0.0 Abs Immat Gran (auto) 0.03 Absolute Neuts (auto) 6.5 Absolute Nucleated RBC 0.000 Nucleated RBC % (auto) 0.0 Anion Gap Estim Creat Clear Calc Estimated GFR POC Glucose 202 H Random Glucose Calcium Total Bilirubin Direct Bilirubin AST ALT Alkaline Phosphatase Troponin I High Sens B-Natriuretic Peptide Total Protein Albumin Lipase Urine Color Yellow Urine Appearance Clear Urine pH 8.0 Ur Specific [place] <= 1.005 Urine Protein Negative Urine Glucose (UA) Negative Urine Ketones Negative Urine Blood Negative Urine Nitrite Negative Ur Leukocyte Esterase Small (1+) H Urine RBC 0-2 Urine WBC 0-5 Ur Squamous Epith Cells 3-5 Urine Bacteria None Seen Hyaline Casts 0-2 Stool Occult Blood 09/26/22 09/26/22 09/26/22 11:22 11:22 13:18 MCV MCH MCHC RDW Plt Count MPV Immature Gran % (Auto) Neut % (Auto) Lymph % (Auto) Branch % (Auto) Eos % (Auto) Baso % (Auto) Lymph # (Auto) Branch # (Auto) Eos # (Auto) Baso # (Auto) Abs Immat Gran (auto) Absolute Neuts (auto) Absolute Nucleated RBC Nucleated RBC % (auto) Anion Gap 12 Estim Creat Clear Calc 74.2 Estimated GFR > 60 POC Glucose Random Glucose 194 H Calcium 8.6 Total Bilirubin 2.2 H Direct Bilirubin 0.9 H AST 9 ALT 14 Alkaline Phosphatase 84 Troponin I High Sens B-Natriuretic Peptide 4803 H Total Protein 5.7 L Albumin 2.9 L Lipase < 4 L Urine Color Urine Appearance Urine pH Ur Specific [place] Urine Protein Urine Glucose (UA) Urine Ketones Urine Blood Urine Nitrite Ur Leukocyte Esterase Urine RBC Urine WBC Ur Squamous Epith Cells Urine Bacteria Hyaline Casts Stool Occult Blood NEGATIVE 09/26/22 14:39 MCV MCH MCHC RDW Plt Count MPV Immature Gran % (Auto) Neut % (Auto) Lymph % (Auto) Branch % (Auto) Eos % (Auto) Baso % (Auto) Lymph # (Auto) Branch # (Auto) Eos # (Auto) Baso # (Auto) Abs Immat Gran (auto) Absolute Neuts (auto) Absolute Nucleated RBC Nucleated RBC % (auto) Anion Gap Estim Creat Clear Calc Estimated GFR POC Glucose Random Glucose Calcium Total Bilirubin Direct Bilirubin AST ALT Alkaline Phosphatase Troponin I High Sens 56.8 H* B-Natriuretic Peptide Total Protein Albumin Lipase Urine Color Urine Appearance Urine pH Ur Specific [place] Urine Protein Urine Glucose (UA) Urine Ketones Urine Blood Urine Nitrite Ur Leukocyte Esterase Urine RBC Urine WBC Ur Squamous Epith Cells Urine Bacteria Hyaline Casts Stool Occult Blood Imaging Radiologist's Impressions: Impressions Chest X-Ray 09/26/22 14:20 IMPRESSION: Stable enlargement of the cardiac silhouette. Increased central bronchovascular markings and lower lobe airspace disease suggestive of pneumonia. 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 ACUTE MEDICAL ISSUES Acute exacerbation of Congestive heart failure with reduced EF -BNP 4803. troponin I high sensitivity 67.5 with repeat of 56.8-review of chart shows that patient has chronic troponin elevations, currently denying chest pain at this time. -Chest x-ray:Stable enlargement of the cardiac silhouette. Increased central bronchovascular markings and lower lobe airspace disease suggestive of pneumonia. -Foot x-ray: Obtained and Pending at time of this dictation -KUB x-ray: Obtained and Pending at time of this dictation -CT abdomen and pelvis without (09/24/2022):1. Small to moderate volume of abdominal ascites. 2. Splenomegaly. 3. Stable left adrenal nodule. 4. Small dependent bilateral pleural effusions. Small pericardial effusion. -last cardiology progress note states last ejection fraction 10-15%. Will repeat echocardiogram. -IV Lasix. Strict I&O's/daily weights. -Continue carvedilol, and lisinopril. Hypokalemia -Patient will have mild hypokalemia, she received 60 mEq of p.o. K+ in the ED. recheck K+ levels in a.m.. History of osteomyelitis left lower extremity status post left BKA -Patient is status post left BKA, she is reporting ?uncontrolled pain? -Hold oral opioids at this time. IV Dilaudid ordered with holding parameters. -Continue prescribed doxycycline/cefuroxime--started on 09/21 for a 14 day supply -Wound nurse consult placed CHRONIC LONGSTANDING ISSUES: COPD/asthma -Continue Laba/Jeni. Does not appear in exacerbation. Anemia, chronic -Patient history chronic anemia current hemoglobin 8.6, on 09/24/2022 hemoglobin was 11.8. Patient denies signs of active bleeding. -Continue to monitor/trend. Add anemia panel to a.m. labs. Insulin-dependent diabetes mellitus -Insulin sliding scale with nutrition. Lantus. Diabetic diet. Hypertension -Antihypertensives continue with holding parameters. Hyperlipidemia -Statin continued. OTHER: DVT prophylaxis -heparin subQ. Patient is a full code HCP/person to contact is Angely Maria, Time Spent With Patient Time: Total time managing care of this patient today ____ minutes. Quality Stroke Does the patient have a stroke diagnosis?: No VTE Prior VTE?: No VTE Risk Level:: Medical - moderate - high VTE Device Contraindication: N/A - Device Ordered VTE Drug Contraindication: N/A - Med Ordered
[2022-09-26] MEDS: cefEPime HCl 2 GM in 0.9 % Sodium Chloride 50 ML IV (16:19)
[2022-09-26] MEDS: oxyCODONE HCl Immed Release 5 MG TABLET PO (16:19)
[2022-09-26 16:29] LABS: Lactic Acid 1.7 mmol/L (0.5-2.0)
[2022-09-26 17:38] VITALS: BP 120/78; PULSE 94; RESP 15; TEMP 36.8; O2SAT 96
[2022-09-26] MEDS: Heparin Sodium,Porcine 5,000 UNIT/ML VIAL 5000 UNIT SUBCUT (18:55)
[2022-09-26 19:20] VITALS: BP 128/77; PULSE 96; RESP 14; TEMP 36.5; O2SAT 95
[2022-09-26 19:46] LABS: Troponin-I High Sensitivity 62.8 ng/L (<3.5-17.0)
[2022-09-26] MEDS: Gabapentin 100 MG CAPSULE 200 MG PO (22:02)
[2022-09-26] MEDS: Acetaminophen 325 MG TABLET 650 MG PO (22:03)
[2022-09-26] MEDS: Docusate Sodium 100 MG CAPSULE PO (22:04)
[2022-09-26] MEDS: Doxycycline Monohydrate 100 MG CAPSULE PO (22:04)
[2022-09-26] MEDS: Montelukast Sodium 10 MG TABLET PO (22:05)
[2022-09-26] MEDS: Atorvastatin Calcium 80 MG TABLET PO (22:05)
[2022-09-26] MEDS: Ticagrelor 90 MG TABLET PO (22:05)
[2022-09-26] MEDS: carvediloL 3.125 MG TABLET PO (22:05)
[2022-09-26] MEDS: Insulin Glargine,Hum.rec.anlog 100 UNIT/ML 10 ML VIAL 20 UNIT SUBCUT (22:06)
[2022-09-26] MEDS: Insulin Lispro 100 UNIT/ML 3 ML VIAL SUBCUT (22:07)
[2022-09-26 23:10] VITALS: BP 108/62; PULSE 94; RESP 15; TEMP 36.6; O2SAT 99
[2022-09-27] MEDS: 0.9 % Sodium Chloride Flush 3 ML SYRINGE IVFLUSH ×4 (00:30→20:15)
[2022-09-27] MEDS: Morphine Sulfate 2 MG/ML CARTRIDGE IVPUSH ×5 (00:30→23:43)
[2022-09-27 03:32] VITALS: BP 116/70; PULSE 80; RESP 15; TEMP 36.2; O2SAT 98
[2022-09-27] MEDS: Heparin Sodium,Porcine 5,000 UNIT/ML VIAL 5000 UNIT SUBCUT ×2 (05:04→17:26)
[2022-09-27 06:58] LABS: Glucose, Whole Blood 206 mg/dL (60-115)
--- NOTE | 2022-09-27 07:00 | CA_ITS ---
Transthoracic Echocardiogram Patient (Last, First, Middle): Keisha Chadwick, Gender: Female Date of : 1970 Age: 52 Procedure Date: 09/27/2022 Procedure Type: Transthoracic E[place]ocardiogram [place] [facility] [place]: 160.02 cm Weight: 68.04 kg BSA: 1.71 m2 Heart Rate: 81 bpm BP: 116 / 60 mmHg Dietetics Professor: SB Referring MD: Janel STOUT Symptoms: CHF exacerbation, Study Quality: Adequate w contrast ECG Rhythm: Sinus Conclusions: - The left ventricular systolic function is severely decreased. The visually estimated ejection fraction is between 10-15%. - There is evidence of regional wall motion abnormalities. - There is mild to moderately decreased right ventricular systolic function. - Aortic valve sclerosis without any significant stenosis. - There is mild mitral valve regurgitation. - Mild pulmonary hypertension is present. Findings Procedure Information Contrast agent, definity, is being given per protocol with complications as noted. The patient experienced back pain from contrast. Left Ventricle Mildly increased left ventricular cavity size. There is mildly increased left ventricular wall thickness. The left ventricular systolic function is severely decreased. The visually estimated ejection fraction is between 10 15%. There is evidence of regional wall motion abnormalities. E/E prime ratio is >15, consistent with elevated filling pressures. Evidence suggests grade II (moderate) diastolic dysfunction. Septum is thinned. Wall Motion Rest Echo Findings The basal inferior and basal inferolateral segments are hypokinetic. The inferoseptal wall, the apex, apical inferior, mid anterior, mid inferior, apical lateral, apical septum, and mid anteroseptal segments are akinetic. Right Ventricle Mildly increased right ventricular cavity size. There is mild to moderately decreased right ventricular systolic function. Atria Both atria are normal in size. Aortic Valve There is mild calcification of the aortic valve. There is no aortic valve regurgitation. No significant aortic stenosis. Mitral Valve The posterior mitral leaflet has restricted mobility. There is mild mitral annular calcification. There is mild mitral valve regurgitation. There is no mitral valve stenosis. Pulmonic Valve The pulmonic valve was not well visualized. Tricuspid Valve There is mild tricuspid valve regurgitation. Mild pulmonary hypertension is present. Great Vessels The asc aorta is normal in size. Venous The inferior vena cava is mildly dilated and collapses less than 50% with inspiration. Pericardium/Pleural There is a small loculated pericardial effusion overlying the right ventricle and right atrium. There is a moderate left sided pleural effusion. Prior Study Comparison No significant change compared to prior study dated: 09/08/2022. Measurements 2D Linear Measurements IVSd: 0.52 0.6-0.9/0.6-1.0 cm LVIDd: 5.90 3.9-5.3/4.2-5.9 cm LVIDd Index: 3.45 2.4-3.2/2.2-3.1 cm/m2 LVIDs: 5.30 2.0-3.6 cm LVPWd: 1.12 0.7-1.1 cm LA Diam: 4.70 2.7-3.8/3.0-4.0 cm LAIDs Index: 2.75 1.5-2.3 cm/m2 LV Mass: 231.86 67-162/88-224 g LV Mass Index: 135.59 43-95/49-115 g/m2 LVOT Diam: 2.00 3.0+(-)1.3 cm 2D Systolic Function EF 4C: 17.80 >55% EF 2C: 24.10 >55% EF BiP: 20.80 >55% Mitral Valve MV Pk E: 0.96 MV PK A: 0.48 MV Decel Time: 128.00 E/A: 2.00 E'Lateral: 3.26 E'Medial: 2.87 E/E' Med: 33.40 E/E' Lat: 29.40 PHT: 37.00 MVA PHT: 5.95 Decel [place]: 7.50 Aortic Valve AoV Pk [place]: 1.10 AoV Mn Bryant: 0.66 AoV VTI: 0.16 AoV Pk Grad: 5.00 Aov Mn Grad: 2.00 CLARA Cont.VTI: 1.95 LVOT LVOT Pk [place]: 0.63 LVOT Mn [place]: 0.41 LVOT VTI: 0.10 LVOT Pk Grad: 2.00 LVOT Mn Grad: 1.00 LVOT Diam: 2.00 LVOT Area: 3.14 Diastolic Function MV Pk E: 0.96 MV Pk A: 0.48 E/A: 2.00 E'Medial: 2.87 E/E' Med: 33.40 E' Laterial: 3.26 E/E' Lat: 29.40 Right Ventricle TAPSE (mm): 13.40 TVS' Bryant: 7.58 Tricuspid Valve TR Pk Bryant: 2.78 TR Pk Grad: 31.00 RA Press: 15.00 RVSP: 46.00 Great Vessels Aorta Sinus of Valsalva: 2.50 2.0-3.5 cm Ao Asc: 3.10 2.1-3.4 cm Pulmonary Veins Pulm Vein S/D 0.40 Pulmonary Valve PV Pk [place]: 0.71 Peak PV Grad: 2.00 Updated in Other Vendor System with Status of Final Chandana Dave MD electronically signed on 09/27/2022 12:14:50 PM with status of Final
[2022-09-27 07:22] VITALS: BP 118/71; PULSE 79; RESP 20; TEMP 36.5; O2SAT 99
[2022-09-27 07:28] LABS: Hematocrit 30.6 % (37.0-47.0); Hemoglobin 8.8 g/dl (12.0-16.0); Mean Corpuscular HGB Conc 28.8 g/dl (31.0-35.0); Mean Corpuscular Hemoglobin 19.8 pg (27.0-33.0); Mean Corpuscular Volume 68.8 fL (80.0-98.0); Platelet Count 162 X10*3/uL (160-400); Red Blood Count 4.45 X10*6/uL (4.20-5.50); White Blood Count 6.4 X10*3/uL (4.8-10.8)
[2022-09-27 07:35] LABS: Glucose, Whole Blood 64 mg/dL (60-115)
[2022-09-27 07:55] LABS: Anion Gap 14 (12-20); Blood Urea Nitrogen 16 mg/dL (9-16); Calcium 8.5 mg/dL (8.4-10.2); Carbon Dioxide 34 mmol/L (22-29); Chloride 97 mmol/L (96-108); Creatinine Clr Calc Pharmacy 67.7; Estimated Glomerular Filt Rate > 60; Glucose Random 56 mg/dL (60-115); Potassium 3.6 mmol/L (3.3-5.1); Sodium 141 mmol/L (135-145)
[2022-09-27 08:03] LABS: Glucose, Whole Blood 64 mg/dL (60-115)
[2022-09-27] MEDS: Furosemide 40 MG/4 ML VIAL IVPUSH ×2 (08:29→17:26)
[2022-09-27] MEDS: carvediloL 3.125 MG TABLET PO ×2 (08:29→20:14)
[2022-09-27] MEDS: Ticagrelor 90 MG TABLET PO ×2 (08:29→20:12)
[2022-09-27] MEDS: Docusate Sodium 100 MG CAPSULE PO (08:30)
[2022-09-27] MEDS: lisinopriL 20 MG TABLET PO (08:30)
[2022-09-27] MEDS: Aspirin Enteric Coated 81 MG TABLET.DR PO (08:30)
[2022-09-27] MEDS: Doxycycline Monohydrate 100 MG CAPSULE PO (08:30)
[2022-09-27 08:34] LABS: Glucose, Whole Blood 66 mg/dL (60-115)
[2022-09-27] MEDS: Morphine Sulfate 2 MG/ML CARTRIDGE 1 MG IVPUSH ×3 (08:42→20:09)
--- NOTE | 2022-09-27 08:56 | MHC.CM.PN ---
CM met with Patient at bedside. Patient lives in an apartment with her Boyfriend and 2 Children, ages 12 & 22 years of age. HCP is on file. Patient uses a w/c and crutches to assist with mobility (L BKA) and she is active with [facility]. Home/resume said services is the goal and CM has initiated and will follow for dc planning. Patient has received Moderna/Covid vax x2 and her PCP/MILLINERY DEPARTMENT MANAGER/Danica Vallejo is from [facility] in [place].
[2022-09-27] MEDS: Glucose Gel 15 GM GEL..GRAM. PO (09:27)
--- NOTE | 2022-09-27 10:18 | P.CONCA_ITS ---
History of Present Illness History of Present Illness Date of Service: 09/27/22 Chief complaint: CHF Exacerbation Narrative: This is a cardiology consultation regarding congestive heart failure. Of note, this patient has been admitted numerous times in this hospital over the last year or so. Every time, she generally decides to sign out against medical advice. On several occasions, she has had biomarkers in the NSTEMI range. Most recent cardiology consultation was reviewed. According to that, she presented to [facility] with anterior ST-elevation and chest discomfort. Then she was transferred to [facility]. According to the consultation, she apparently had multivessel coronary disease on diagnostic angiography. Then referred for bypass surgery but did not show for surgery and did not get the required workup. Then it seems that she had LAD PCI and started on aspirin and Brilinta. Once again, came to [place] [facility] but then left against medical advice repeatedly. Finally, she came with foot infection and required surgery for that. Current admission is because of generalized body pain but most prominently diffuse discomfort in the abdomen. She does have chronic shortness of breath and that is apparently unchanged. She is still not very insightful as to what is going on. When I brought up the issue of repeated against medical advice discharges, she does not seem to take it seriously. Review of Systems Review of Systems: Yes all other systems are reviewed and are negative Constitutional: Constitutional: Reports as per HPI and Reports no additional constitutional complaints Eyes: Eyes: Reports as per HPI and Denies no additional eye complaints ENT: Denies system reviewed and no additional complaints, except as documented and Reports as per HPI Cardiovascular: Cardiovascular: Reports as per HPI, Reports no additional cardiovascular complaints, Denies acrocyanosis, Denies cool extremities, Denies chest pain, Denies leg edema, Denies lightheadedness, Denies palpitations and Denies dyspnea Respiratory: Respiratory: Reports as per HPI, Denies no additional respiratory complaints and Denies dyspnea Gastrointestinal: Gastrointestinal: Reports as per HPI, Denies no additional gastrointestinal complaints and Reports abdominal pain Genitourinary: Genitourinary: Reports as per HPI Musculoskeletal: Musculoskeletal: Reports no additional musculoskeletal complaints and Reports as per HPI Integumentary/Breasts: Skin/Breast: Reports system reviewed and no additional complaints, except as docu Neurologic: Reports system reviewed and no additional complaints, except as documented and Reports as per HPI Psychiatric: Psychiatric: Reports no additional psychiatric complaints and Reports as per HPI Endocrine: Endocrine: Reports no additional endocrine complaints, Reports as per HPI and Denies palpitations Hematologic/Lymphatic: Hematologic/Lymphatic: Reports no additional hematologic/lymphatic complaints and Reports as per HPI Allergic/Immunologic: Allergic/Immunologic: Reports no additional allergic/immunologic complaints and Reports as per HPI [facility] Past Medical History Medical History (Updated 09/27/22 @ 10:30 by Chandana Dave MD) Asthma Atherosclerotic cardiovascular disease Atrial tachycardia Below-knee amputation of left lower extremity Cellulitis in diabetic foot COPD (chronic obstructive pulmonary disease) Coronary artery disease COVID-19 vaccine series completed Diabetes Diabetic foot infection Diabetic foot infection Diabetic foot ulcer Diabetic toe ulcer Essential hypertension GERD (gastroesophageal reflux disease) Hyperglycemia due to diabetes mellitus Hypertension Ischemic cardiomyopathy Left against medical advice Left against medical advice Osteomyelitis Osteomyelitis 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 PAD (peripheral artery disease) Family History Family History Mother Hx of CABG Sister CAD (coronary artery disease) Surgical History Surgical History History of esophagogastroduodenoscopy (EGD) History of toe surgery (09/22/21) Status post below-knee amputation of left lower extremity (09/20/22) Social History Social History Household Members: Family and Children Housing: Apartment Do you presently have visiting nurse or other home services: No Unable to assess alcohol history related to: Refusing to respond Alcohol intake: current Alcohol intake frequency: does not drink Alcohol type: other Patient Tobacco Use Status: Current everyday Tobacco user Tobacco use type: Cigarette Cigarette Packs Per Day: 0.5 Cigarettes Per Day: 6 Years Smoked: 43 Smoked in Last 30 Days: Yes e-Cigarette/Vaping Use: Currently Using Second Hand Smoke Exposure: Yes Use of substances other than those prescribed or required for medical reasons: No Substance Use Type: Marijuana Currently Displaying Signs/Symptoms of Drug Intoxication Withdrawal: No Advance Directives: Yes Advance Directives on File: Yes Advance Directives Date on File: 12/28/20 Nutrition Risks: Poor intake 0-25% >4 days Patient : No service: No Current occupational status: disabled Meds Allergies Allergy/AdvReac Type Severity Reaction Status Date / Time Penicillins [PENICILLINS] Allergy Severe RASH Verified 09/27/22 09:39 amoxicillin [AMOXICILLIN] Allergy Intermediate HIVES Verified 09/27/22 09:39 codeine Allergy Itching Verified 09/27/22 09:39 Active Medications: Current Medications Acetaminophen (Acetaminophen 325 Mg Tablet) 650 mg PO Q6H PRN PRN Reason: Pain, Mild (Pain Scale 1-3) Last Admin: 09/26/22 22:03 Dose: 650 mg Acetaminophen (Acetaminophen 325 Mg Tablet) 650 mg PO Q6H PRN PRN Reason: Fever Albuterol Sulfate (Albuterol Sulfate 90 Mcg 8 Gm Inhaler) 2 puff INHALE Q4H PRN PRN Reason: Shortness of Breath/Wheezing Aspirin (Aspirin Enteric Coated 81 Mg Tablet.Dr) 81 mg PO DAILY [facility] Last Admin: 09/27/22 08:30 Dose: 81 mg Atorvastatin Calcium (Atorvastatin Calcium 80 Mg Tablet) 80 mg PO BEDTIME [facility] Last Admin: 09/26/22 22:05 Dose: 80 mg Carvedilol (Carvedilol 3.125 Mg Tablet) 3.125 mg PO BID [facility]; Protocol Last Admin: 09/27/22 08:29 Dose: 3.125 mg Cefuroxime Axetil (Cefuroxime Axetil 500 Mg Tablet) 500 mg PO BID [facility] Last Admin: 09/27/22 08:30 Dose: 500 mg Docusate Sodium (Docusate Sodium 100 Mg Capsule) 100 mg PO BID [facility] Last Admin: 09/27/22 08:30 Dose: 100 mg Doxycycline Monohydrate (Doxycycline Monohydrate 100 Mg Capsule) 100 mg PO BID [facility] Last Admin: 09/27/22 08:30 Dose: 100 mg Furosemide (Furosemide 40 Mg/4 Ml Vial) 40 mg IVPUSH BID@0900,1800 [facility]; Protocol Last Admin: 09/27/22 08:29 Dose: 40 mg Gabapentin (Gabapentin 100 Mg Capsule) 200 mg PO BID [facility] Last Admin: 09/26/22 22:02 Dose: 200 mg Glucose (Glucose Gel 15 Gm Gel..Gram.) 15 gm PO Q15M PRN; Protocol PRN Reason: per Hypoglycemia Standing Ord. Last Admin: 09/27/22 09:27 Dose: 15 gm Heparin Sodium (Porcine) (Heparin Sodium,Porcine 5,000 Unit/Ml Vial) 5,000 unit SUBCUT Q12H [facility] Last Admin: 09/27/22 05:04 Dose: 5,000 unit Dextrose (D10) 250 mls @ 750 mls/hr IV Q15M PRN; Protocol PRN Reason: per Hypoglycemia Standing Ord. Insulin Glargine (Insulin Glargine,Hum.Rec.Anlog 100 Unit/Ml 10 Ml Vial) 20 unit SUBCUT BID [facility] Last Admin: 09/26/22 22:06 Dose: 20 unit Insulin Human Lispro (Insulin Lispro 100 Unit/Ml 3 Ml Vial) 0 unit SUBCUT QIDACHS [facility]; Protocol Last Admin: 09/27/22 09:20 Dose: Not Given Lisinopril (Lisinopril 20 Mg Tablet) 20 mg PO DAILY [facility]; Protocol Last Admin: 09/27/22 08:30 Dose: 20 mg Montelukast Sodium (Montelukast Sodium 10 Mg Tablet) 10 mg PO BEDTIME [facility] Last Admin: 09/26/22 22:05 Dose: 10 mg Morphine Sulfate (Morphine Sulfate 2 Mg/Ml Cartridge) 1 mg IVPUSH Q4H PRN; Pr otocol PRN Reason: Pain, Moderate (Pain Scale 4-6 Last Admin: 09/27/22 08:42 Dose: 1 mg Morphine Sulfate (Morphine Sulfate 2 Mg/Ml Cartridge) 2 mg IVPUSH Q4H PRN; Protocol PRN Reason: Pain, Severe (Pain Scale 7-10) Last Admin: 09/27/22 05:04 Dose: 2 mg Non-Formulary Medication (Umeclidinium [Incruse Ellipta]) 1 puff PO DAILY [facility] Ondansetron HCl (Ondansetron Hcl 4 Mg/2 Ml Vial) 4 mg IVPUSH Q8H PRN PRN Reason: Nausea and Vomiting Senna (Sennosides 8.6 Mg Tablet) 17.2 mg PO BEDTIME PRN PRN Reason: Constipation Sodium Chloride (0.9 % Sodium Chloride Flush 3 Ml Syringe) 3 ml IVFLUSH QSHIFT [facility] Last Admin: 09/27/22 08:30 Dose: 3 ml Ticagrelor (Ticagrelor 90 Mg Tablet) 90 mg PO BID [facility] Last Admin: 09/27/22 08:29 Dose: 90 mg Home Medications Medication Instructions Recorded Confirmed Last Taken Type umeclidinium 62.5 mcg/actuation 1 puff PO DAILY 10/31/21 09/26/22 09/07/22 History blister powder for inhalation (Incruse Ellipta) montelukast 10 mg tablet 1 tab PO BEDTIME 02/13/22 09/26/22 09/07/22 History insulin glargine 100 unit/mL (3 20 unit subcut BID 03/23/22 09/26/22 09/07/22 History mL) subcutaneous pen (Lantus Solostar U-100 Insulin) gabapentin 300 mg capsule 2 cap PO BID 05/01/22 09/15/22 09/07/22 History albuterol sulfate 2.5 mg/3 mL 1 vial inhalation Q6H PRN Wheezing 06/19/22 09/26/22 09/07/22 History (0.083 %) solution for nebulization albuterol sulfate 90 mcg/actuation 1 puff inhalation Q4H PRN Wheezing 06/19/22 09/26/22 09/07/22 History aerosol inhaler (Ventolin HFA) lisinopril 20 mg tablet 20 mg PO DAILY 09/08/22 09/26/22 09/07/22 History furosemide 40 mg tablet 40 mg PO BID 09/12/22 09/26/22 Unknown History oxycodone 5 mg tablet 5 mg PO Q6H PRN Pain (Scale Score 09/26/22 09/26/22 Unknown History 4-6) Physical Exam Vital Signs: Vital Signs: Last Vital Signs Temp 97.7 F 09/27/22 07:22 Pulse 79 09/27/22 07:22 Resp 20 09/27/22 07:22 BP 118/71 09/27/22 07:22 Pulse Ox 99 09/27/22 07:22 O2 Del Method Room Air 09/27/22 07:22 BMI result Body Mass Index 26.5 Const: General: comfortable and no acute distress Orientation/consciousness: patient oriented x3 HEENT: Other: Unremarkable Head: Yes normal to inspection Neck: Neck: Yes normal visual inspection Chest: Chest palpation & inspection: normal inspection of the chest Resp: Auscultation: rhonchi Cardio: Palpation: normal PMI Heart sounds: S1 normal heart sound present, S2 normal heart sound present, no gallops, no murmurs and no rubs GI: Palpation (GI): Soft to palpation Back/Spine/Pelvis: Other: unremarkable Skin: General skin exam: no rashes or lesions noted Neuro: General: patient oriented x3 Extrem: Other: L BKA General: Yes normal to inspection Psych: Mental Status: mental status grossly normal Objective Labs and Meds 09/27/22 06:34 09/27/22 06:34 Lab results: Laboratory Results - last 24 hr 09/26/22 09/26/22 09/26/22 10:09 10:45 11:22 WBC 8.1 RBC 4.43 D Hgb 8.6 L D Hct 30.0 L D MCV 67.7 L MCH 19.4 L MCHC 28.7 L RDW 22.3 H Plt Count 165 MPV Not Reportable Immature Gran % (Auto) 0.4 Neut % (Auto) 80.7 H Lymph % (Auto) 12.3 L [place] % (Auto) 5.9 Eos % (Auto) 0.2 Baso % (Auto) 0.5 Lymph # (Auto) 1.0 L [place] # (Auto) 0.5 Eos # (Auto) 0.0 Baso # (Auto) 0.0 Abs Immat Gran (auto) 0.03 Absolute Neuts (auto) 6.5 Absolute Nucleated RBC 0.000 Nucleated RBC % (auto) 0.0 Sodium Potassium Chloride Carbon Dioxide Anion Gap BUN Creatinine Estim Creat Clear Calc Estimated GFR POC Glucose 202 H Random Glucose Lactic Acid Calcium Total Bilirubin Direct Bilirubin AST ALT Alkaline Phosphatase Troponin I High Sens B-Natriuretic Peptide Total Protein Albumin Lipase Urine Color Yellow Urine Appearance Clear Urine pH 8.0 Ur Specific [place] <= 1.005 Urine Protein Negative Urine Glucose (UA) Negative Urine Ketones Negative Urine Blood Negative Urine Nitrite Negative Ur Leukocyte Esterase Small (1+) H Urine RBC 0-2 Urine WBC 0-5 Ur Squamous Epith Cells 3-5 Urine Bacteria None Seen Hyaline Casts 0-2 Stool Occult Blood 09/26/22 09/26/22 09/26/22 11:22 11:22 13:18 WBC RBC Hgb Hct MCV MCH MCHC RDW Plt Count MPV Immature Gran % (Auto) Neut % (Auto) Lymph % (Auto) [place] % (Auto) Eos % (Auto) Baso % (Auto) Lymph # (Auto) [place] # (Auto) Eos # (Auto) Baso # (Auto) Abs Immat Gran (auto) Absolute Neuts (auto) Absolute Nucleated RBC Nucleated RBC % (auto) Sodium 140 Potassium 3.2 L Chloride 94 L Carbon Dioxide 37 H Anion Gap 12 BUN 12 Creatinine 0.83 Estim Creat Clear Calc 74.2 Estimated GFR > 60 POC Glucose Random Glucose 194 H Lactic Acid Calcium 8.6 Total Bilirubin 2.2 H Direct Bilirubin 0.9 H AST 9 ALT 14 Alkaline Phosphatase 84 Troponin I High Sens B-Natriuretic Peptide 4803 H Total Protein 5.7 L Albumin 2.9 L Lipase < 4 L Urine Color Urine Appearance Urine pH Ur Specific [place] Urine Protein Urine Glucose (UA) Urine Ketones Urine Blood Urine Nitrite Ur Leukocyte Esterase Urine RBC Urine WBC Ur Squamous Epith Cells Urine Bacteria Hyaline Casts Stool Occult Blood NEGATIVE 09/26/22 09/26/22 09/26/22 14:39 16:02 18:38 WBC RBC Hgb Hct MCV MCH MCHC RDW Plt Count MPV Immature Gran % (Auto) Neut % (Auto) Lymph % (Auto) [place] % (Auto) Eos % (Auto) Baso % (Auto) Lymph # (Auto) [place] # (Auto) Eos # (Auto) Baso # (Auto) Abs Immat Gran (auto) Absolute Neuts (auto) Absolute Nucleated RBC Nucleated RBC % (auto) Sodium Potassium Chloride Carbon Dioxide Anion Gap BUN Creatinine Estim Creat Clear Calc Estimated GFR POC Glucose Random Glucose Lactic Acid 1.7 Calcium Total Bilirubin Direct Bilirubin AST ALT Alkaline Phosphatase Troponin I High Sens 56.8 H* 62.8 H* B-Natriuretic Peptide Total Protein Albumin Lipase Urine Color Urine Appearance Urine pH Ur Specific [place] Urine Protein Urine Glucose (UA) Urine Ketones Urine Blood Urine Nitrite Ur Leukocyte Esterase Urine RBC Urine WBC Ur Squamous Epith Cells Urine Bacteria Hyaline Casts Stool Occult Blood 09/26/22 09/27/22 09/27/22 21:17 06:34 06:34 WBC 6.4 RBC 4.45 Hgb 8.8 L Hct 30.6 L MCV 68.8 L MCH 19.8 L MCHC 28.8 L RDW 23.0 H Plt Count 162 MPV Not Reportable Immature Gran % (Auto) Neut % (Auto) Lymph % (Auto) [place] % (Auto) Eos % (Auto) Baso % (Auto) Lymph # (Auto) [place] # (Auto) Eos # (Auto) Baso # (Auto) Abs Immat Gran (auto) Absolute Neuts (auto) Absolute Nucleated RBC 0.000 Nucleated RBC % (auto) 0.0 Sodium 141 Potassium 3.6 Chloride 97 Carbon Dioxide 34 H Anion Gap 14 BUN 16 Creatinine 0.91 Estim Creat Clear Calc 67.7 Estimated GFR > 60 POC Glucose 206 H Random Glucose 56 L* Lactic Acid Calcium 8.5 Total Bilirubin Direct Bilirubin AST ALT Alkaline Phosphatase Troponin I High Sens B-Natriuretic Peptide Total Protein Albumin Lipase Urine Color Urine Appearance Urine pH Ur Specific [place] Urine Protein Urine Glucose (UA) Urine Ketones Urine Blood Urine Nitrite Ur Leukocyte Esterase Urine RBC Urine WBC Ur Squamous Epith Cells Urine Bacteria Hyaline Casts Stool Occult Blood 09/27/22 09/27/22 09/27/22 07:31 08:00 08:31 WBC RBC Hgb Hct MCV MCH MCHC RDW Plt Count MPV Immature Gran % (Auto) Neut % (Auto) Lymph % (Auto) [place] % (Auto) Eos % (Auto) Baso % (Auto) Lymph # (Auto) [place] # (Auto) Eos # (Auto) Baso # (Auto) Abs Immat Gran (auto) Absolute Neuts (auto) Absolute Nucleated RBC Nucleated RBC % (auto) Sodium Potassium Chloride Carbon Dioxide Anion Gap BUN Creatinine Estim Creat Clear Calc Estimated GFR POC Glucose 64 64 66 Random Glucose Lactic Acid Calcium Total Bilirubin Direct Bilirubin AST ALT Alkaline Phosphatase Troponin I High Sens B-Natriuretic Peptide Total Protein Albumin Lipase Urine Color Urine Appearance Urine pH Ur Specific [place] Urine Protein Urine Glucose (UA) Urine Ketones Urine Blood Urine Nitrite Ur Leukocyte Esterase Urine RBC Urine WBC Ur Squamous Epith Cells Urine Bacteria Hyaline Casts Stool Occult Blood ECG Interpretation: EKG with sinus rhythm at 95/Min; cannot exclude old anterior infarct. No significant change compared to the prior study from 24 of September. Imaging Radiologist's impression: Impressions Foot X-Ray 09/26/22 11:26 IMPRESSION: 1. Mild hallux valgus deformity right foot. There is a soft tissue ulceration along the lateral hindfoot to the skin surface of plantar region. No bony erosive changes to suspect any osteomyelitis. 2. Mild degenerative changes intertarsal joints and small calcaneal heel enthesophyte. 3. Mild constipation on KUB. KUB X-Ray 09/26/22 11:26 IMPRESSION: 1. Mild hallux valgus deformity right foot. There is a soft tissue ulceration along the lateral hindfoot to the skin surface of plantar region. No bony erosive changes to suspect any osteomyelitis. 2. Mild degenerative changes intertarsal joints and small calcaneal heel enthesophyte. 3. Mild constipation on KUB. Chest X-Ray 09/26/22 14:20 IMPRESSION: Stable enlargement of the cardiac silhouette. Increased central bronchovascular markings and lower lobe airspace disease suggestive of pneumonia. Assessment and Plan (1) Acute on chronic combined systolic and diastolic CHF, NYHA class 3: Status: Acute (2) Atherosclerotic cardiovascular disease: Status: Acute (3) PAD (peripheral artery disease): Status: Acute Plan Pertinent data reviewed. EKG shows evidence of extensive anterior infarction. In the echocardiogram, LVEF 10-15%. Wall motion abnormalities consistent with underlying coronary disease. Per last cardiac catheterization from August, occluded LAD, treated by PCI. Otherwise, known multivessel CAD. High sensitivity troponins are slightly elevated at 79, 67, 56 and 62. Cardiac BNP is 4803. Abdomen CT shows small to moderate volume of abdominal ascites. Small bilateral pleural effusions. Small pericardial effusion. Chest x-ray reported have stable enlargement of cardiac silhouette. Increased central bronchovascular markings and lower lobe airspace disease suggestive of pneumonia. Overall, symptoms could be related to decompensated heart failure. However, patient is in strong denial of this. As long as patient is willing to stay in the hospital, IV diuretics with Lasix as you currently doing. With regard to the stenting, continue dual antiplatelet therapy. With regard to other meds, cannot be sure how much she is actually taking at home due to strong history of noncompliance. If able to come to clinic, can follow up. Guarded prognosis on account of extensive comorbidities, poor compliance but patient still does not seem to understand after extensive discussions. Time Spent With Patient Time: Total time managing care of this patient today 75 minutes. This includes time spent in review of chart, laboratory data, imaging studies, review of telemetry, counseling patient, discussion with hospitalist, docum entation, coordination of care. Procedures Date of Service Date of Service: 09/27/22
[2022-09-27 11:08] LABS: Glucose, Whole Blood 80 mg/dL (60-115)
[2022-09-27 11:44] VITALS: BP 117/65; PULSE 77; RESP 18; TEMP 36.2; O2SAT 100
--- NOTE | 2022-09-27 11:56 | P.PNIM_ITS ---
Subjective Subjective Date of Service: 09/27/22 Review of Systems Follow-up CHF No complaints of chest pain, shortness of breath Physical Exam Vital Signs: Vital Signs: Last Vital Signs Temp 97.2 F 09/27/22 11:44 Pulse 77 09/27/22 11:44 Resp 18 09/27/22 11:44 BP 117/65 09/27/22 11:44 Pulse Ox 100 09/27/22 11:44 O2 Del Method Room Air 09/27/22 11:44 BMI result Body Mass Index 26.5 Appearing in no acute distress lung sounds are clear to auscultation heart regular rate rhythm, clear S1, S2 positive bowel sounds, abdomen is soft, nontender neuro patient is alert x3, no focal deficits Left lower extremity BKA, gauze dressing in place Objective Data Active Medications Acetaminophen (Acetaminophen 325 Mg Tablet) 650 mg PO Q6H PRN PRN Reason: Pain, Mild (Pain Scale 1-3) Last Admin: 09/26/22 22:03 Dose: 650 mg Documented By: JUSTUS Acetaminophen (Acetaminophen 325 Mg Tablet) 650 mg PO Q6H PRN PRN Reason: Fever Albuterol Sulfate (Albuterol Sulfate 90 Mcg 8 Gm Inhaler) 2 puff INHALE Q4H PRN PRN Reason: Shortness of Breath/Wheezing Aspirin (Aspirin Enteric Coated 81 Mg Tablet.) 81 mg PO DAILY [facility] Last Admin: 09/27/22 08:30 Dose: 81 mg Documented By: JUSTUS Atorvastatin Calcium (Atorvastatin Calcium 80 Mg Tablet) 80 mg PO BEDTIME [facility] Last Admin: 09/26/22 22:05 Dose: 80 mg Documented By: JUSTUS Carvedilol (Carvedilol 3.125 Mg Tablet) 3.125 mg PO BID [facility]; Protocol Last Admin: 09/27/22 08:29 Dose: 3.125 mg Documented By: JUSTUS Cefuroxime Axetil (Cefuroxime Axetil 500 Mg Tablet) 500 mg PO BID [facility] Last Admin: 09/27/22 08:30 Dose: 500 mg Documented By: JUSTUS Docusate Sodium (Docusate Sodium 100 Mg Capsule) 100 mg PO BID [facility] Last Admin: 09/27/22 08:30 Dose: 100 mg Documented By: JUSTUS Doxycycline Monohydrate (Doxycycline Monohydrate 100 Mg Capsule) 100 mg PO BID [facility] Last Admin: 09/27/22 08:30 Dose: 100 mg Documented By: JUSTUS Furosemide (Furosemide 40 Mg/4 Ml Vial) 40 mg IVPUSH BID@0900,1800 [facility]; Protocol Last Admin: 09/27/22 08:29 Dose: 40 mg Documented By: JUSTUS Gabapentin (Gabapentin 100 Mg Capsule) 200 mg PO BID [facility] Last Admin: 09/26/22 22:02 Dose: 200 mg Documented By: JUSTUS Glucose (Glucose Gel 15 Gm Gel..Gram.) 15 gm PO Q15M PRN; Protocol PRN Reason: per Hypoglycemia Standing Ord. Last Admin: 09/27/22 09:27 Dose: 15 gm Documented By: JUSTUS Heparin Sodium (Porcine) (Heparin Sodium,Porcine 5,000 Unit/Ml Vial) 5,000 unit SUBCUT Q12H [facility] Last Admin: 09/27/22 05:04 Dose: 5,000 unit Documented By: JERAMIE Dextrose (D10) 250 mls @ 750 mls/hr IV Q15M PRN; Protocol PRN Reason: per Hypoglycemia Standing Ord. Insulin Glargine (Insulin Glargine,Hum.Rec.Anlog 100 Unit/Ml 10 Ml Vial) 20 unit SUBCUT BID [facility] Last Admin: 09/26/22 22:06 Dose: 20 unit Documented By: JUSTUS Insulin Human Lispro (Insulin Lispro 100 Unit/Ml 3 Ml Vial) 0 unit SUBCUT QIDACHS [facility]; Protocol Last Admin: 09/27/22 09:20 Dose: Not Given Documented By: JUSTUS Non-Admin Reason: No Insulin Coverage Lisinopril (Lisinopril 20 Mg Tablet) 20 mg PO DAILY [facility]; Protocol Last Admin: 09/27/22 08:30 Dose: 20 mg Documented By: JUSTUS Montelukast Sodium (Montelukast Sodium 10 Mg Tablet) 10 mg PO BEDTIME [facility] Last Admin: 09/26/22 22:05 Dose: 10 mg Documented By: JUSTUS Morphine Sulfate (Morphine Sulfate 2 Mg/Ml Cartridge) 1 mg IVPUSH Q4H PRN; Protocol PRN Reason: Pain, Moderate (Pain Scale 4-6 Last Admin: 09/27/22 08:42 Dose: 1 mg Documented By: JUSTUS Morphine Sulfate (Morphine Sulfate 2 Mg/Ml Cartridge) 2 mg IVPUSH Q4H PRN; Protocol PRN Reason: Pain, Severe (Pain Scale 7-10) Last Admin: 09/27/22 05:04 Dose: 2 mg Documented By: EJRAMIE Non-Formulary Medication (Umeclidinium [Incruse Ellipta]) 1 puff PO DAILY [facility] Ondansetron HCl (Ondansetron Hcl 4 Mg/2 Ml Vial) 4 mg IVPUSH Q8H PRN PRN Reason: Nausea and Vomiting Senna (Sennosides 8.6 Mg Tablet) 17.2 mg PO BEDTIME PRN PRN Reason: Constipation Sodium Chloride (0.9 % Sodium Chloride Flush 3 Ml Syringe) 3 ml IVFLUSH QSHIFT [facility] Last Admin: 09/27/22 08:30 Dose: 3 ml Documented By: JUSTUS Ticagrelor (Ticagrelor 90 Mg Tablet) 90 mg PO BID [facility] Last Admin: 09/27/22 08:29 Dose: 90 mg Documented By: JUSTUS Labs 09/27/22 06:34 09/27/22 06:34 Labs: Laboratory Results - last 24 hr 09/26/22 09/26/22 09/26/22 13:18 14:39 16:02 MCV MCH MCHC RDW Plt Count MPV Absolute Nucleated RBC Nucleated RBC % (auto) Anion Gap Estim Creat Clear Calc Estimated GFR POC Glucose Random Glucose Lactic Acid 1.7 Calcium Troponin I High Sens 56.8 H* Stool Occult Blood NEGATIVE 09/26/22 09/26/22 09/27/22 18:38 21:17 06:34 MCV 68.8 L MCH 19.8 L MCHC 28.8 L RDW 23.0 H Plt Count 162 MPV Not Reportable Absolute Nucleated RBC 0.000 Nucleated RBC % (auto) 0.0 Anion Gap Estim Creat Clear Calc Estimated GFR POC Glucose 206 H Random Glucose Lactic Acid Calcium Troponin I High Sens 62.8 H* Stool Occult Blood 09/27/22 09/27/22 09/27/22 06:34 07:31 08:00 MCV MCH MCHC RDW Plt Count MPV Absolute Nucleated RBC Nucleated RBC % (auto) Anion Gap 14 Estim Creat Clear Calc 67.7 Estimated GFR > 60 POC Glucose 64 64 Random Glucose 56 L* Lactic Acid Calcium 8.5 Troponin I High Sens Stool Occult Blood 09/27/22 09/27/22 08:31 10:54 MCV MCH MCHC RDW Plt Count MPV Absolute Nucleated RBC Nucleated RBC % (auto) Anion Gap Estim Creat Clear Calc Estimated GFR POC Glucose 66 80 Random Glucose Lactic Acid Calcium Troponin I High Sens Stool Occult Blood Microbiology Microbiology Results: Microbiology 09/26/22 Unknown Urine Culture - Final Urine clean catch - Urine jimenez top No growth. 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 Acute exacerbation of Congestive heart failure with reduced EF BNP 4803.? Last echocardiogram with EF of 10-15% Continue IV Lasix Follow intake and output, daily weights Cardiology following Hypokalemia Repleted and resolved History of osteomyelitis left lower extremity status post left BKA (09/20/22) Nauseous at this time, gauze dressing in place with kyle COPD/asthma Continue home medications, no exacerbation Anemia, chronic Patient history chronic anemia current hemoglobin 8.6, on 09/24/2022 hemoglobin was 11.8.? Insulin-dependent diabetes mellitus with episodes of hypoglycemia Blood sugars in the 60s despite sugared snacks Oral glucagon Sliding scale, ADA diet Hypertension Antihypertensives Hyperlipidemia Statin continued. DVT prophylaxis heparin subQ. Attending Dr. Hernandez Full code Continue hospitalization for treatment of acute congestive heart failure requiring IV diuretics Time Spent With Patient Time: Total time managing care of this patient today ____ minutes. Quality Stroke Does the patient have a stroke diagnosis?: No VTE Prior VTE?: No VTE Risk Level:: Medical - moderate - high VTE Device Contraindication: N/A - Device Ordered VTE Drug Contraindication: N/A - Med Ordered
[2022-09-27] MEDS: Gabapentin 100 MG CAPSULE 200 MG PO ×2 (12:20→20:10)
[2022-09-27 15:12] VITALS: BP 118/64; PULSE 89; RESP 13; TEMP 36.4; O2SAT 98
[2022-09-27 16:13] LABS: Glucose, Whole Blood 126 mg/dL (60-115)
--- NOTE | 2022-09-27 17:42 | P.CDIM_ITS ---
PROVIDER RESPONSE TEXT: To clarify, the appropriate diagnosis supported by the clinical indicators: Diabetic ulcer: diabetic ulcer, dry QUERY TEXT: PHYSICIAN'S DOCUMENTATION REQUEST Date of Query: 09/27/2022 01:25 PM EDT Patient Name: Keisha Chadwick Admit Date: 09/26/2022 Dear Elizabeth Gracia, A review of the medical record indicates additional documentation may be needed. Please review below and update the documentation accordingly. Clinical Indicators: Per ED note 09/26/22: Right foot with lateral ulcer, appears clean PMH DM Based on the above, could you please provide further information regarding the type and severity of t he ulcer/wound: Diabetic ulcer Please specify the type and severity of the ulcer/wound Venous stasis ulcer Please specify the type and severity of the ulcer/wound Arterial (ischemic) ulcer Please specify the type and severity of the ulcer/wound Pressure (decubitus) ulcer Please include the stage of the ulcer Traumatic wound Please specify the location and laterality of the ulcer/wound Other, please specify Other (explain) Clinically unable to determine (explain) Thank you, Shu Rosario RN Use of terms such as suspected, likely, concern for, or probable (associated with a specific diagnosi s that is being evaluated, monitored, or treated as if it exists) are acceptable and can be coded in the inpatient se tting, when documented at the time of discharge. Please use your independent medical judgment in providing your response. THIS QUERY IS PART OF THE PERMANENT MEDICAL RECORD
[2022-09-27 18:59] VITALS: BP 115/73; PULSE 91; RESP 14; TEMP 36.7; O2SAT 98
[2022-09-27 19:43] LABS: Glucose, Whole Blood 108 mg/dL (60-115)
[2022-09-27] MEDS: Atorvastatin Calcium 80 MG TABLET PO (20:12)
[2022-09-27] MEDS: Montelukast Sodium 10 MG TABLET PO (20:12)
[2022-09-27] MEDS: Insulin Glargine,Hum.rec.anlog 100 UNIT/ML 10 ML VIAL 20 UNIT SUBCUT (20:15)
[2022-09-27 23:35] VITALS: BP 136/80; PULSE 84; RESP 20; TEMP 36.2; O2SAT 99
[2022-09-28] VITALS (10 sets, daily range): BP systolic 95–137; BP diastolic 53–85; PULSE 67–84; RESP 16–20; TEMP 32.4–36.8; O2SAT 93–100; BMI 26.2
[2022-09-28] MEDS: Dextrose 10 % 250 ML 750 ML IV (07:21)
--- NOTE | 2022-09-28 07:32 | ECG_ITS ---
Test Reason : altermental status Blood Pressure : / mmHG Vent. Rate : 064 BPM Atrial Rate : 064 BPM P-R Int : 190 ms QRS Dur : 090 ms QT Int : 492 ms P-R-T Axes : 072 087 109 degrees QTc Int : 507 ms Normal sinus rhythm Possible Left atrial enlargement Low voltage QRS Septal infarct (cited on or before 13-JUN-2022) Prolonged QT Abnormal ECG When compared with ECG of 26-SEP-2022 14:26, Vent. rate has decreased BY 31 BPM Referred By: Jennifer Cao Electronically Signed By:WENDY JIMENES
[2022-09-28 07:41] LABS: Anion Gap 16 (12-20); Blood Urea Nitrogen 22 mg/dL (9-16); Calcium 8.6 mg/dL (8.4-10.2); Carbon Dioxide 33 mmol/L (22-29); Chloride 98 mmol/L (96-108); Creatinine Clr Calc Pharmacy 68.9; Estimated Glomerular Filt Rate > 60; Glucose Random 21 mg/dL (60-115); Potassium 3.5 mmol/L (3.3-5.1); Sodium 143 mmol/L (135-145)
--- NOTE | 2022-09-28 07:42 | PC.RT ---
Rapid response called this am, pt found lethargic, diff to arouse with low sugar. Spo2 86% on ra, weak insp effort noted. Pt placed on 5 lpm oxymask, spo2 100% quickly titrated to 2 lpm via n/c. RN warm and treat. Pt now awake and responding, in no resp distress. BP 120/64, rr 16, LS bilat diminished, spo2 99% on 2 lpm n/c.
[2022-09-28 07:44] LABS: B Type Natriuretic Peptide 3117 pg/mL (<100)
[2022-09-28 07:52] LABS: Glucose, Whole Blood 21 mg/dL (60-115)
[2022-09-28 07:54] LABS: MANUAL DIFF FLAG NO
[2022-09-28 07:57] LABS: Glucose, Whole Blood 164 mg/dL (60-115)
[2022-09-28 07:58] LABS: Basophils Percent Auto 0.6 % (0-2); Eosinophils Percent Auto 0.4 % (0-4); Hemoglobin 9.2 g/dl (12.0-16.0); Imm Gran Abs Auto 0.02 X10*3/uL (0.00-0.03); Imm Gran Pct Auto 0.4 % (0.0-0.4); Lymphocytes Absolute Auto 0.6 X10*3/uL (1.2-4.9); Lymphocytes Percent Auto 11.2 % (20-40); Mean Corpuscular HGB Conc 28.8 g/dl (31.0-35.0); Mean Corpuscular Hemoglobin 19.6 pg (27.0-33.0); Mean Corpuscular Volume 68.2 fL (80.0-98.0); Monocytes Absolute Auto 0.4 X10*3/uL (0.1-1.2); Monocytes Percent Auto 6.8 % (2-11); Neutrophils Absolute Auto 4.3 x10*3/uL (2.0-8.3); Neutrophils Percent Auto 80.6 % (45-73); Platelet Count 153 X10*3/uL (160-400); Red Blood Count 4.69 X10*6/uL (4.20-5.50); Red Cell Distribution Width 22.8 % (11.0-16.0); White Blood Count 5.3 X10*3/uL (4.8-10.8)
[2022-09-28 08:35] LABS: Cortisol Random 15.5 ug/dL
[2022-09-28 08:37] LABS: Troponin-I High Sensitivity 50.6 ng/L (<3.5-17.0)
[2022-09-28 09:04] LABS: Glucose, Whole Blood 89 mg/dL (60-115)
[2022-09-28] MEDS: Furosemide 40 MG/4 ML VIAL IVPUSH ×2 (09:04→16:44)
[2022-09-28] MEDS: 0.9 % Sodium Chloride Flush 3 ML SYRINGE IVFLUSH ×2 (09:04→20:01)
[2022-09-28] MEDS: Gabapentin 100 MG CAPSULE 200 MG PO ×2 (09:04→19:56)
[2022-09-28] MEDS: Docusate Sodium 100 MG CAPSULE PO (09:04)
[2022-09-28] MEDS: Ticagrelor 90 MG TABLET PO ×2 (09:05→19:56)
[2022-09-28] MEDS: Aspirin Enteric Coated 81 MG TABLET.DR PO (09:05)
[2022-09-28] MEDS: lisinopriL 20 MG TABLET PO (09:05)
[2022-09-28] MEDS: carvediloL 3.125 MG TABLET PO (09:05)
[2022-09-28] MEDS: Morphine Sulfate 2 MG/ML CARTRIDGE IVPUSH ×3 (09:19→19:59)
[2022-09-28] MEDS: Dextrose 5 % 1,000 ML 100 ML IVCONT ×2 (09:24→20:06)
--- NOTE | 2022-09-28 09:35 | P.PNCA_ITS ---
Subjective Subjective Date of Service: 09/28/22 Interval history: Apparently, patient had rapid response called this a.m.. She was found to be lethargic. Difficult to arouse. Had low blood sugars. Also had low pulse ox. We considered referred. Then started supplemental oxygen. Then it seems that she has been put on a warming blanket. Patient herself still seems somewhat sleepy and lethargic but when I asked about cardiac symptoms, she denies anything. She states her breathing is normal. Denies any chest pain or any other cardiac symptoms. Review of Systems Review of Systems Yes all other systems are reviewed and are negative Constitutional: Reports as per HPI and Reports no additional constitutional complaints Eyes: Reports as per HPI and Denies no additional eye complaints Denies system reviewed and no additional complaints, except as documented and Reports as per HPI Cardiovascular: Reports as per HPI, Reports no additional cardiovascular complaints, Denies acrocyanosis, Denies cool extremities, Denies chest pain, Denies leg edema, Denies lightheadedness, Denies palpitations and Denies dyspnea Respiratory: Reports as per HPI, Denies no additional respiratory complaints and Denies dyspnea Gastrointestinal: Reports as per HPI and Denies no additional gastrointestinal complaints Genitourinary: Reports as per HPI Musculoskeletal: Reports no additional musculoskeletal complaints and Reports as per HPI Skin/Breast: Reports system reviewed and no additional complaints, except as docu Reports system reviewed and no additional complaints, except as documented and Reports as per HPI Psychiatric: Reports no additional psychiatric complaints and Reports as per HPI Endocrine: Reports no additional endocrine complaints, Reports as per HPI and Denies palpitations Hematologic/Lymphatic: Reports no additional hematologic/lymphatic complaints and Reports as per HPI Allergic/Immunologic: Reports no additional allergic/immunologic complaints and Reports as per HPI Physical Exam Vital Signs: Last Vital Signs Temp 91 F L 09/28/22 09:27 Pulse 84 09/28/22 08:52 Resp 16 09/28/22 08:52 BP 124/80 09/28/22 07:41 Pulse Ox 100 09/28/22 07:41 O2 Del Method Nasal Cannula 09/28/22 07:41 Oxygen Flow Rate 2 09/28/22 07:41 BMI result Body Mass Index 26.2 Const General: comfortable, no acute distress and lethargic Orientation/consciousness: patient oriented x3 and lethargic HEENT Other: Unremarkable Head: Yes normal to inspection Neck Neck: Yes normal visual inspection Chest Chest palpation & inspection: normal inspection of the chest Resp Auscultation: diminished lung sounds Cardio Palpation: normal PMI Heart sounds: S1 normal heart sound present, S2 normal heart sound present, no gallops, no murmurs and no rubs GI Palpation (GI): Soft to palpation Back/Spine/Pelvis Other: unremarkable Skin General skin exam: no rashes or lesions noted Neuro General: patient oriented x3 Extrem Other: difficult to evaluate as patient is covered by bear hugger but has L BKA. slight swelling right side. Psych Mental Status: mental status grossly normal Objective Labs and Meds 09/28/22 07:51 09/28/22 06:58 Lab results: Laboratory Results - last 24 hr 09/27/22 09/27/22 09/27/22 10:54 16:08 19:34 WBC RBC Hgb Hct MCV MCH MCHC RDW Plt Count MPV Immature Gran % (Auto) Neut % (Auto) Lymph % (Auto) [place] % (Auto) Eos % (Auto) Baso % (Auto) Lymph # (Auto) [place] # (Auto) Eos # (Auto) Baso # (Auto) Abs Immat Gran (auto) Absolute Neuts (auto) Absolute Nucleated RBC Nucleated RBC % (auto) Sodium Potassium Chloride Carbon Dioxide Anion Gap BUN Creatinine Estim Creat Clear Calc Estimated GFR POC Glucose 80 126 H 108 Random Glucose Calcium Troponin I High Sens B-Natriuretic Peptide Random Cortisol 09/28/22 09/28/22 09/28/22 06:58 06:58 07:17 WBC RBC Hgb Hct MCV MCH MCHC RDW Plt Count MPV Immature Gran % (Auto) Neut % (Auto) Lymph % (Auto) [place] % (Auto) Eos % (Auto) Baso % (Auto) Lymph # (Auto) [place] # (Auto) Eos # (Auto) Baso # (Auto) Abs Immat Gran (auto) Absolute Neuts (auto) Absolute Nucleated RBC Nucleated RBC % (auto) Sodium 143 Potassium 3.5 Chloride 98 Carbon Dioxide 33 H Anion Gap 16 BUN 22 H Creatinine 0.89 Estim Creat Clear Calc 68.9 Estimated GFR > 60 POC Glucose 21 L* Random Glucose 21 L* Calcium 8.6 Troponin I High Sens B-Natriuretic Peptide 3117 H Random Cortisol 09/28/22 09/28/22 09/28/22 07:50 07:51 07:51 WBC RBC Hgb Hct MCV MCH MCHC RDW Plt Count MPV Immature Gran % (Auto) Neut % (Auto) Lymph % (Auto) [place] % (Auto) Eos % (Auto) Baso % (Auto) Lymph # (Auto) [place] # (Auto) Eos # (Auto) Baso # (Auto) Abs Immat Gran (auto) Absolute Neuts (auto) Absolute Nucleated RBC Nucleated RBC % (auto) Sodium Potassium Chloride Carbon Dioxide Anion Gap BUN Creatinine Estim Creat Clear Calc Estimated GFR POC Glucose 164 H Random Glucose Calcium Troponin I High Sens 50.6 H* B-Natriuretic Peptide Random Cortisol 15.5 09/28/22 09/28/22 07:51 09:00 WBC 5.3 RBC 4.69 Hgb 9.2 L Hct 32.0 L MCV 68.2 L MCH 19.6 L MCHC 28.8 L RDW 22.8 H Plt Count 153 L MPV Not Reportable Immature Gran % (Auto) 0.4 Neut % (Auto) 80.6 H Lymph % (Auto) 11.2 L [place] % (Auto) 6.8 Eos % (Auto) 0.4 Baso % (Auto) 0.6 Lymph # (Auto) 0.6 L [place] # (Auto) 0.4 Eos # (Auto) 0.0 Baso # (Auto) 0.0 Abs Immat Gran (auto) 0.02 Absolute Neuts (auto) 4.3 Absolute Nucleated RBC 0.000 Nucleated RBC % (auto) 0.0 Sodium Potassium Chloride Carbon Dioxide Anion Gap BUN Creatinine Estim Creat Clear Calc Estimated GFR POC Glucose 89 Random Glucose Calcium Troponin I High Sens B-Natriuretic Peptide Random Cortisol Progress Note: A&P Assessment and plan (1) Acute on chronic combined systolic and diastolic CHF, NYHA class 3: Status: Acute (2) Atherosclerotic cardiovascular disease: Status: Acute (3) PAD (peripheral artery disease): Status: Acute Plan Pertinent data reviewed. EKG shows evidence of extensive anterior infarction. In the echocardiogram, LVEF 10-15%. Wall motion abnormalities consistent with underlying coronary disease. Per last cardiac catheterization from August, occluded LAD, treated by PCI. Otherwise, known multivessel CAD. High sensitivity troponins are slightly elevated at 79, 67, 56 and 62, 50. Cardiac BNP is 4803, followed by 3117. Abdomen CT shows small to moderate volume of abdominal ascites. Small bilateral pleural effusions. Small pericardial effusion. Chest x-ray reported have stable enlargement of cardiac silhouette. Increased central bronchovascular markings and lower lobe airspace disease suggestive of pneumonia. Today morning, she is hypothermic. Temperature as low as 90.4 degrees. She has also been hypoglycemic. Blood sugar was 21. Overall, cardiac as well as extensive other comorbidities and extremely poor compliance and numerous against medical advice discharges. Even as today, she was still in denial that she has any major cardiac issues. Today, she is a bit more lethargic because of the above new issues including hypoglycemia and hypothermia. Overall, very poor prognosis. Can continue diuresis as tolerated but not diurese at too much if it is going to make her shocky. Clinically, not too volume overloaded but due to the bad Hugger, again difficult to assess. Probably have to hold the insulin due to the hypoglycemia. Need to discuss with family. Discussed with Dr. Lopez in detail. Time Spent With Patient Time: Total time managing care of this patient today 50 minutes. This includes time spent in review of chart, laboratory data, imaging studies, review of telemetry, counseling patient, family, discussion with hospitalist, RN, documentation, coordination of care. Progress Note: Quality Stroke Does the patient have a stroke diagnosis?: No Procedures Date of Service Date of Service: 09/28/22
[2022-09-28 10:05] LABS: Glucose, Whole Blood 158 mg/dL (60-115)
--- NOTE | 2022-09-28 10:19 | PC.NURSE ---
This morning at 0720, RN was notified pt's BGL was 21. On assessment, pt was alert, followed commands, unable to answer questions, appeared confused. Temperature was 90.4F rectally. Rapid response called, primary provider Dr. Lopez at bedside, D10 infusing and kianna monicagger initiated. BGL recheck was 164, pt was alert, oriented x2. Rechecked BGL 1 hr after and it was 89. Dr. Lopez notified, initiated pt on D5 gtt at 100mL/hr per order.
[2022-09-28] MEDS: oxyCODONE HCl Immed Release 5 MG TABLET PO ×3 (11:07→21:46)
[2022-09-28] MEDS: Acetaminophen 325 MG TABLET 650 MG PO ×2 (11:07→16:55)
[2022-09-28 11:39] LABS: Glucose, Whole Blood 203 mg/dL (60-115)
[2022-09-28] MEDS: Insulin Lispro 100 UNIT/ML 3 ML VIAL SUBCUT ×2 (12:19→16:43)
--- NOTE | 2022-09-28 14:43 | P.PNIM_ITS ---
Subjective Subjective Date of Service: 09/28/22 Interval History: Episode of hypoglycemia this a.m. was sugars down 20. Responded to glucose Review of Systems Denies chest pain Denies shortness of breath Denies nausea vomiting diarrhea Denies fever chills Physical Exam Vital Signs: Vital Signs: Last Vital Signs Temp 92.8 F L 09/28/22 11:47 Pulse 73 09/28/22 11:47 Resp 18 09/28/22 11:47 BP 109/64 09/28/22 11:47 Pulse Ox 99 09/28/22 11:47 O2 Del Method Room Air 09/28/22 11:47 Oxygen Flow Rate 2 09/28/22 07:41 BMI result Body Mass Index 26.2 Const: Other: Awake alert no acute distress Resp: Other: Clear to auscultation bilaterally no rales rhonchi or wheezes Cardio: Other: No S4; positive S1-S2; no S3 murmurs rubs gallops GI: Other: Soft nontender nondistended normoactive bowel sounds Extrem: Other: No edema bilat Objective Data Active Medications Acetaminophen (Acetaminophen 325 Mg Tablet) 650 mg PO Q6H PRN PRN Reason: Pain, Mild (Pain Scale 1-3) Last Admin: 09/28/22 11:07 Dose: 650 mg Documented By: JENNIFER Acetaminophen (Acetaminophen 325 Mg Tablet) 650 mg PO Q6H PRN PRN Reason: Fever Albuterol Sulfate (Albuterol Sulfate 90 Mcg 8 Gm Inhaler) 2 puff INHALE Q4H PRN PRN Reason: Shortness of Breath/Wheezing Aspirin (Aspirin Enteric Coated 81 Mg Tablet.) 81 mg PO DAILY [facility] Last Admin: 09/28/22 09:05 Dose: 81 mg Documented By: JENNIFER Atorvastatin Calcium (Atorvastatin Calcium 80 Mg Tablet) 80 mg PO BEDTIME [facility] Last Admin: 09/27/22 20:12 Dose: 80 mg Documented By: DAVID Carvedilol (Carvedilol 3.125 Mg Tablet) 3.125 mg PO BID [facility]; Protocol Last Admin: 09/28/22 09:05 Dose: 3.125 mg Documented By: JENNIFER Docusate Sodium (Docusate Sodium 100 Mg Capsule) 100 mg PO BID [facility] Last Admin: 09/28/22 09:04 Dose: 100 mg Documented By: JENNIFER Furosemide (Furosemide 40 Mg/4 Ml Vial) 40 mg IVPUSH BID@0900,1800 [facility]; Protocol Last Admin: 09/28/22 09:04 Dose: 40 mg Documented By: JENNIFER Gabapentin (Gabapentin 100 Mg Capsule) 200 mg PO BID [facility] Last Admin: 09/28/22 09:04 Dose: 200 mg Documented By: JENNIFER Glucose (Glucose Gel 15 Gm Gel..Gram.) 15 gm PO Q15M PRN; Protocol PRN Reason: per Hypoglycemia Standing Ord. Last Admin: 09/27/22 09:27 Dose: 15 gm Documented By: JUSTUS Heparin Sodium (Porcine) (Heparin Sodium,Porcine 5,000 Unit/Ml Vial) 5,000 unit SUBCUT Q12H [facility] Last Admin: 09/28/22 05:07 Dose: Not Given Documented By: DAVID Non-Admin Reason: Patient Refused Dextrose (D10) 250 mls @ 750 mls/hr IV Q15M PRN; Protocol PRN Reason: per Hypoglycemia Standing Ord. Last Infusion: 09/28/22 07:47 Dose: 0 mls/hr Documented By: JENNIFER Dextrose (D5w) 1,000 mls @ 100 mls/hr IVCONT .Q10H [facility] Last Admin: 09/28/22 09:24 Dose: 100 mls/hr Documented By: JENNIFER Insulin Human Lispro (Insulin Lispro 100 Unit/Ml 3 Ml Vial) 0 unit SUBCUT QIDACHS [facility]; Protocol Last Admin: 09/28/22 12:19 Dose: 4 unit Documented By: JENNIFER Lisinopril (Lisinopril 20 Mg Tablet) 20 mg PO DAILY [facility]; Protocol Last Admin: 09/28/22 09:05 Dose: 20 mg Documented By: JENNIFER Montelukast Sodium (Montelukast Sodium 10 Mg Tablet) 10 mg PO BEDTIME [facility] Last Admin: 09/27/22 20:12 Dose: 10 mg Documented By: DAVID Morphine Sulfate (Morphine Sulfate 2 Mg/Ml Cartridge) 1 mg IVPUSH Q4H PRN; Protocol PRN Reason: Pain, Moderate (Pain Scale 4-6 Last Admin: 09/27/22 20:09 Dose: 1 mg Documented By: DAVID Morphine Sulfate (Morphine Sulfate 2 Mg/Ml Cartridge) 2 mg IVPUSH Q4H PRN; Protocol PRN Reason: Pain, Severe (Pain Scale 7-10) Last Admin: 09/28/22 09:19 Dose: 2 mg Documented By: JENNIFER Ondansetron HCl (Ondansetron Hcl 4 Mg/2 Ml Vial) 4 mg IVPUSH Q8H PRN PRN Reason: Nausea and Vomiting Oxycodone HCl (Oxycodone Hcl Immed Release 5 Mg Tablet) 5 mg PO Q4H PRN PRN Reason: Pain, Moderate (Pain Scale 4-6 Last Admin: 09/28/22 11:07 Dose: 5 mg Documented By: JENNIFER Senna (Sennosides 8.6 Mg Tablet) 17.2 mg PO BEDTIME PRN PRN Reason: Constipation Sodium Chloride (0.9 % Sodium Chloride Flush 3 Ml Syringe) 3 ml IVFLUSH QSHIFT [facility] Last Admin: 09/28/22 09:04 Dose: 3 ml Documented By: JENNIFER Ticagrelor (Ticagrelor 90 Mg Tablet) 90 mg PO BID [facility] Last Admin: 09/28/22 09:05 Dose: 90 mg Documented By: JENNIFER Tiotropium [place] (Tiotropium [place] 18 Mcg Cap.W.Dev) 1 puff INHALE RDAILY [facility] Last Admin: 09/28/22 08:50 Dose: 1 puff Documented By: VALENCIACARR Labs 09/28/22 07:51 09/28/22 06:58 Labs: Laboratory Results - last 24 hr 09/27/22 09/27/22 09/28/22 16:08 19:34 06:58 MCV MCH MCHC RDW Plt Count MPV Immature Gran % (Auto) Neut % (Auto) Lymph % (Auto) [place] % (Auto) Eos % (Auto) Baso % (Auto) Lymph # (Auto) [place] # (Auto) Eos # (Auto) Baso # (Auto) Abs Immat Gran (auto) Absolute Neuts (auto) Absolute Nucleated RBC Nucleated RBC % (auto) Anion Gap 16 Estim Creat Clear Calc 68.9 Estimated GFR > 60 POC Glucose 126 H 108 Random Glucose 21 L* Calcium 8.6 Troponin I High Sens B-Natriuretic Peptide Random Cortisol 09/28/22 09/28/22 09/28/22 06:58 07:17 07:50 MCV MCH MCHC RDW Plt Count MPV Immature Gran % (Auto) Neut % (Auto) Lymph % (Auto) [place] % (Auto) Eos % (Auto) Baso % (Auto) Lymph # (Auto) [place] # (Auto) Eos # (Auto) Baso # (Auto) Abs Immat Gran (auto) Absolute Neuts (auto) Absolute Nucleated RBC Nucleated RBC % (auto) Anion Gap Estim Creat Clear Calc Estimated GFR POC Glucose 21 L* 164 H Random Glucose Calcium Troponin I High Sens B-Natriuretic Peptide 3117 H Random Cortisol 09/28/22 09/28/22 09/28/22 07:51 07:51 07:51 MCV 68.2 L MCH 19.6 L MCHC 28.8 L RDW 22.8 H Plt Count 153 L MPV Not Reportable Immature Gran % (Auto) 0.4 Neut % (Auto) 80.6 H Lymph % (Auto) 11.2 L [place] % (Auto) 6.8 Eos % (Auto) 0.4 Baso % (Auto) 0.6 Lymph # (Auto) 0.6 L [place] # (Auto) 0.4 Eos # (Auto) 0.0 Baso # (Auto) 0.0 Abs Immat Gran (auto) 0.02 Absolute Neuts (auto) 4.3 Absolute Nucleated RBC 0.000 Nucleated RBC % (auto) 0.0 Anion Gap Estim Creat Clear Calc Estimated GFR POC Glucose Random Glucose Calcium Troponin I High Sens 50.6 H* B-Natriuretic Peptide Random Cortisol 15.5 09/28/22 09/28/22 09/28/22 09:00 10:00 11:36 MCV MCH MCHC RDW Plt Count MPV Immature Gran % (Auto) Neut % (Auto) Lymph % (Auto) [place] % (Auto) Eos % (Auto) Baso % (Auto) Lymph # (Auto) [place] # (Auto) Eos # (Auto) Baso # (Auto) Abs Immat Gran (auto) Absolute Neuts (auto) Absolute Nucleated RBC Nucleated RBC % (auto) Anion Gap Estim Creat Clear Calc Estimated GFR POC Glucose 89 158 H 203 H Random Glucose Calcium Troponin I High Sens B-Natriuretic Peptide Random Cortisol Microbiology Microbiology Results: Microbiology 09/26/22 16:02 Blood Culture - Preliminary Blood - Venous No growth after 24 hours. 09/26/22 16:02 Blood Culture - Preliminary Blood - Venous No growth after 24 hours. 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 Episode of hypoglycemia this a.m. 1.Acute exacerbation of CHF - Last echocardiogram with EF of 10-15% -continue IV Lasix -follow renals/divalents 2.COPD/asthma -acceptable control -adjust as indicated 3. Dm II (with hypoglycemia this a.m.) -stop Lantus -lispro correctional scale only 4.Hypertension -acceptal control -adjust as indicated Heparin subQ. Full code Requires ongoing hospitalization for IV diuresis to treat CHF Time Spent With Patient Time: Total time managing care of this patient today ____ minutes. Quality Stroke Does the patient have a stroke diagnosis?: No VTE Prior VTE?: No VTE Risk Level:: Medical - moderate - high VTE Device Contraindication: N/A - Device Ordered VTE Drug Contraindication: N/A - Med Ordered
[2022-09-28 16:26] LABS: Glucose, Whole Blood 206 mg/dL (60-115)
[2022-09-28] MEDS: Heparin Sodium,Porcine 5,000 UNIT/ML VIAL 5000 UNIT SUBCUT (16:44)
[2022-09-28 19:41] LABS: Glucose, Whole Blood 148 mg/dL (60-115)
[2022-09-28] MEDS: Atorvastatin Calcium 80 MG TABLET PO (19:57)
[2022-09-28] MEDS: Montelukast Sodium 10 MG TABLET PO (20:45)
--- NOTE | 2022-09-28 23:57 | P.CONWO_ITS ---
History of Present Illness Data of Consult Service Date: 09/28/22 Requesting physician: Abdirashid Lopez Primary Care Provider: Emilie Dangelo MD HPI Reason for consult: right foot wounds The pt is a 52 year old female well known to the wound care center - pt has not been compliant with her care and especially after diabetic foot infection which progressed to recent left BKA. pt has some skin wounds on the right foot but she denies that these bother her at all. Review of Systems Review of Systems: Yes all other systems are reviewed and are negative [facility] Medical History (Updated 09/29/22 @ 00:05 by Nayana Sosa MD) Asthma Atherosclerotic cardiovascular disease Atrial tachycardia Below-knee amputation of left lower extremity Cellulitis in diabetic foot COPD (chronic obstructive pulmonary disease) Coronary artery disease COVID-19 vaccine series completed Diabetes Diabetic foot infection Diabetic foot infection Diabetic foot ulcer Diabetic toe ulcer Essential hypertension GERD (gastroesophageal reflux disease) Hyperglycemia due to diabetes mellitus Hypertension Ischemic cardiomyopathy Left against medical advice Left against medical advice Osteomyelitis Osteomyelitis 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 PAD (peripheral artery disease) Family History Mother Hx of CABG Sister CAD (coronary artery disease) Surgical History History of esophagogastroduodenoscopy (EGD) History of toe surgery (09/22/21) Status post below-knee amputation of left lower extremity (09/20/22) Social History Household Members: Family and Children Housing: Apartment Do you presently have visiting nurse or other home services: No Unable to assess alcohol history related to: Refusing to respond Alcohol intake: current Alcohol intake frequency: does not drink Alcohol type: other Patient Tobacco Use Status: Current everyday Tobacco user Tobacco use type: Cigarette Cigarette Packs Per Day: 0.5 Cigarettes Per Day: 6 Years Smoked: 43 Smoked in Last 30 Days: Yes e-Cigarette/Vaping Use: Currently Using Second Hand Smoke Exposure: Yes Use of substances other than those prescribed or required for medical reasons: No Substance Use Type: Marijuana Currently Displaying Signs/Symptoms of Drug Intoxication Withdrawal: No Advance Directives: Yes Advance Directives on File: Yes Advance Directives Date on File: 12/28/20 Nutrition Risks: Poor intake 0-25% >4 days Patient : No service: No Current occupational status: disabled Meds Allergies Allergy/AdvReac Type Severity Reaction Status Date / Time Penicillins [PENICILLINS] Allergy Severe RASH Verified 09/27/22 09:39 amoxicillin [AMOXICILLIN] Allergy Intermediate HIVES Verified 09/27/22 09:39 codeine Allergy Itching Verified 09/27/22 09:39 perflutren [From Definity] AdvReac Back Pain Verified 09/27/22 11:35 Active Medications: Current Medications Acetaminophen (Acetaminophen 325 Mg Tablet) 650 mg PO Q6H PRN PRN Reason: Pain, Mild (Pain Scale 1-3) Last Admin: 09/28/22 16:55 Dose: 650 mg Acetaminophen (Acetaminophen 325 Mg Tablet) 650 mg PO Q6H PRN PRN Reason: Fever Albuterol Sulfate (Albuterol Sulfate 90 Mcg 8 Gm Inhaler) 2 puff INHALE Q4H PRN PRN Reason: Shortness of Breath/Wheezing Aspirin (Aspirin Enteric Coated 81 Mg Tablet.Dr) 81 mg PO DAILY [facility] Last Admin: 09/28/22 09:05 Dose: 81 mg Atorvastatin Calcium (Atorvastatin Calcium 80 Mg Tablet) 80 mg PO BEDTIME [facility] Last Admin: 09/28/22 19:57 Dose: 80 mg Carvedilol (Carvedilol 3.125 Mg Tablet) 3.125 mg PO BID [facility]; Protocol Last Admin: 09/28/22 23:24 Dose: Not Given Docusate Sodium (Docusate Sodium 100 Mg Capsule) 100 mg PO BID [facility] Last Admin: 09/28/22 23:24 Dose: Not Given Furosemide (Furosemide 40 Mg/4 Ml Vial) 40 mg IVPUSH BID@0900,1800 [facility]; Protocol Last Admin: 09/28/22 16:44 Dose: 40 mg Gabapentin (Gabapentin 100 Mg Capsule) 200 mg PO BID [facility] Last Admin: 09/28/22 19:56 Dose: 200 mg Glucose (Glucose Gel 15 Gm Gel..Gram.) 15 gm PO Q15M PRN; Protocol PRN Reason: per Hypoglycemia Standing Ord. Last Admin: 09/27/22 09:27 Dose: 15 gm Heparin Sodium (Porcine) (Heparin Sodium,Porcine 5,000 Unit/Ml Vial) 5,000 unit SUBCUT Q12H [facility] Last Admin: 09/28/22 16:44 Dose: 5,000 unit Dextrose (D10) 250 mls @ 750 mls/hr IV Q15M PRN; Protocol PRN Reason: per Hypoglycemia Standing Ord. Last Infusion: 09/28/22 07:47 Dose: Infused Dextrose (D5w) 1,000 mls @ 100 mls/hr IVCONT .Q10H [facility] Last Admin: 09/28/22 20:06 Dose: 100 mls/hr Insulin Human Lispro (Insulin Lispro 100 Unit/Ml 3 Ml Vial) 0 unit SUBCUT QIDACHS [facility]; Protocol Last Admin: 09/28/22 23:25 Dose: Not Given Lisinopril (Lisinopril 20 Mg Tablet) 20 mg PO DAILY [facility]; Protocol Last Admin: 09/28/22 09:05 Dose: 20 mg Montelukast Sodium (Montelukast Sodium 10 Mg Tablet) 10 mg PO BEDTIME [facility] Last Admin: 09/28/22 20:45 Dose: 10 mg Morphine Sulfate (Morphine Sulfate 2 Mg/Ml Cartridge) 1 mg IVPUSH Q4H PRN; Protocol PRN Reason: Pain, Moderate (Pain Scale 4-6 Last Admin: 09/27/22 20:09 Dose: 1 mg Morphine Sulfate (Morphine Sulfate 2 Mg/Ml Cartridge) 2 mg IVPUSH Q4H PRN; Protocol PRN Reason: Pain, Severe (Pain Scale 7-10) Last Admin: 09/28/22 19:59 Dose: 2 mg Ondansetron HCl (Ondansetron Hcl 4 Mg/2 Ml Vial) 4 mg IVPUSH Q8H PRN PRN Reason: Nausea and Vomiting Oxycodone HCl (Oxycodone Hcl Immed Release 5 Mg Tablet) 5 mg PO Q4H PRN PRN Reason: Pain, Moderate (Pain Scale 4-6 Last Admin: 09/28/22 21:46 Dose: 5 mg Senna (Sennosides 8.6 Mg Tablet) 17.2 mg PO BEDTIME PRN PRN Reason: Constipation Sodium Chloride (0.9 % Sodium Chloride Flush 3 Ml Syringe) 3 ml IVFLUSH QSHIFT [facility] Last Admin: 09/28/22 20:01 Dose: 3 ml Ticagrelor (Ticagrelor 90 Mg Tablet) 90 mg PO BID [facility] Last Admin: 09/28/22 19:56 Dose: 90 mg Tiotropium [place] (Tiotropium [place] 18 Mcg Cap.W.Dev) 1 puff [facility]ALE [facility] Last Admin: 09/28/22 08:50 Dose: 1 puff Home Medications Medication Instructions Recorded Confirmed Last Taken Type umeclidinium 62.5 mcg/actuation 1 puff PO DAILY 10/31/21 09/26/22 09/07/22 History blister powder for inhalation (Incruse Ellipta) montelukast 10 mg tablet 1 tab PO BEDTIME 02/13/22 09/26/22 09/07/22 History insulin glargine 100 unit/mL (3 20 unit subcut BID 03/23/22 09/26/22 09/07/22 History mL) subcutaneous pen (Lantus Solostar U-100 Insulin) gabapentin 300 mg capsule 2 cap PO BID 05/01/22 09/15/22 09/07/22 History albuterol sulfate 2.5 mg/3 mL 1 vial inhalation Q6H PRN Wheezing 06/19/22 09/26/22 09/07/22 History (0.083 %) solution for nebulization albuterol sulfate 90 mcg/actuation 1 puff inhalation Q4H PRN Wheezing 06/19/22 09/26/22 09/07/22 History aerosol inhaler (Ventolin HFA) lisinopril 20 mg tablet 20 mg PO DAILY 09/08/22 09/26/22 09/07/22 History furosemide 40 mg tablet 40 mg PO BID 09/12/22 09/26/22 Unknown History oxycodone 5 mg tablet 5 mg PO Q6H PRN Pain (Scale Score 09/26/22 09/26/22 Unknown History 4-6) Physical Exam Vital Signs and Narrative: Vital Signs: Last Vital Signs Temp 98.0 F 09/28/22 23:38 Pulse 79 09/28/22 23:38 Resp 19 09/28/22 23:38 BP 110/65 09/28/22 23:38 Pulse Ox 99 09/28/22 23:38 O2 Del Method Room Air 09/28/22 23:38 Oxygen Flow Rate 2 09/28/22 07:41 BMI result Body Mass Index 26.2 Skin: Other: left bka dressing intact right foot lateral foot area with tissue defect but at the base seems dry tissue not into moist fat tissue the great toe has several cracks in the skin but not draining and dry Results Labs 09/28/22 07:51 09/28/22 06:58 Labs: Laboratory Results - last 24 hr 09/28/22 09/28/22 09/28/22 06:58 06:58 07:17 MCV MCH MCHC RDW Plt Count MPV Immature Gran % (Auto) Neut % (Auto) Lymph % (Auto) [place] % (Auto) Eos % (Auto) Baso % (Auto) Lymph # (Auto) [place] # (Auto) Eos # (Auto) Baso # (Auto) Abs Immat Gran (auto) Absolute Neuts (auto) Absolute Nucleated RBC Nucleated RBC % (auto) Anion Gap 16 Estim Creat Clear Calc 68.9 Estimated GFR > 60 POC Glucose 21 L* Random Glucose 21 L* Calcium 8.6 Troponin I High Sens B-Natriuretic Peptide 3117 H Random Cortisol 09/28/22 09/28/22 09/28/22 07:50 07:51 07:51 MCV MCH MCHC RDW Plt Count MPV Immature Gran % (Auto) Neut % (Auto) Lymph % (Auto) [place] % (Auto) Eos % (Auto) Baso % (Auto) Lymph # (Auto) [place] # (Auto) Eos # (Auto) Baso # (Auto) Abs Immat Gran (auto) Absolute Neuts (auto) Absolute Nucleated RBC Nucleated RBC % (auto) Anion Gap Estim Creat Clear Calc Estimated GFR POC Glucose 164 H Random Glucose Calcium Troponin I High Sens 50.6 H* B-Natriuretic Peptide Random Cortisol 15.5 09/28/22 09/28/22 09/28/22 07:51 09:00 10:00 MCV 68.2 L MCH 19.6 L MCHC 28.8 L RDW 22.8 H Plt Count 153 L MPV Not Reportable Immature Gran % (Auto) 0.4 Neut % (Auto) 80.6 H Lymph % (Auto) 11.2 L [place] % (Auto) 6.8 Eos % (Auto) 0.4 Baso % (Auto) 0.6 Lymph # (Auto) 0.6 L [place] # (Auto) 0.4 Eos # (Auto) 0.0 Baso # (Auto) 0.0 Abs Immat Gran (auto) 0.02 Absolute Neuts (auto) 4.3 Absolute Nucleated RBC 0.000 Nucleated RBC % (auto) 0.0 Anion Gap Estim Creat Clear Calc Estimated GFR POC Glucose 89 158 H Random Glucose Calcium Troponin I High Sens B-Natriuretic Peptide Random Cortisol 09/28/22 09/28/22 09/28/22 11:36 16:14 19:33 MCV MCH MCHC RDW Plt Count MPV Immature Gran % (Auto) Neut % (Auto) Lymph % (Auto) [place] % (Auto) Eos % (Auto) Baso % (Auto) Lymph # (Auto) [place] # (Auto) Eos # (Auto) Baso # (Auto) Abs Immat Gran (auto) Absolute Neuts (auto) Absolute Nucleated RBC Nucleated RBC % (auto) Anion Gap Estim Creat Clear Calc Estimated GFR POC Glucose 203 H 206 H 148 H Random Glucose Calcium Troponin I High Sens B-Natriuretic Peptide Random Cortisol Assessment and Plan (1) Type 2 diabetes mellitus with foot ulcer: Status: Acute Plan pt with previous open wounds on the right foot now dry no open draining wound. no need for any dressing. pt is at high risk for recurring open wounds. best prevention is glucose control, healthy diet, healthy shoeware . f.u with us in wound care as needed Time Spent With Patient Time: Total time managing care of this patient today ____ minutes.
[2022-09-29 00:05] LABS: Glucose, Whole Blood 217 mg/dL (60-115)
--- NOTE | 2022-09-29 00:07 | HO.WOUNDCONS ---
History of Present Illness Data of Consult Primary Care Provider: Emilie Dangelo MD [facility] Medical History (Updated 09/29/22 @ 00:05 by Nayana Sosa MD) Asthma Atherosclerotic cardiovascular disease Atrial tachycardia Below-knee amputation of left lower extremity Cellulitis in diabetic foot COPD (chronic obstructive pulmonary disease) Coronary artery disease COVID-19 vaccine series completed Diabetes Diabetic foot infection Diabetic foot infection Diabetic foot ulcer Diabetic toe ulcer Essential hypertension GERD (gastroesophageal reflux disease) Hyperglycemia due to diabetes mellitus Hypertension Ischemic cardiomyopathy Left against medical advice Left against medical advice Osteomyelitis Osteomyelitis 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 PAD (peripheral artery disease) Family History Mother Hx of CABG Sister CAD (coronary artery disease) Surgical History History of esophagogastroduodenoscopy (EGD) History of toe surgery (09/22/21) Status post below-knee amputation of left lower extremity (09/20/22) Social History Household Members: Family and Children Housing: Apartment Do you presently have visiting nurse or other home services: No Unable to assess alcohol history related to: Refusing to respond Alcohol intake: current Alcohol intake frequency: does not drink Alcohol type: other Patient Tobacco Use Status: Current everyday Tobacco user Tobacco use type: Cigarette Cigarette Packs Per Day: 0.5 Cigarettes Per Day: 6 Years Smoked: 43 Smoked in Last 30 Days: Yes e-Cigarette/Vaping Use: Currently Using Second Hand Smoke Exposure: Yes Use of substances other than those prescribed or required for medical reasons: No Substance Use Type: Marijuana Currently Displaying Signs/Symptoms of Drug Intoxication Withdrawal: No Advance Directives: Yes Advance Directives on File: Yes Advance Directives Date on File: 12/28/20 Nutrition Risks: Poor intake 0-25% >4 days Patient : No service: No Current occupational status: disabled Meds Allergies Allergy/AdvReac Type Severity Reaction Status Date / Time Penicillins [PENICILLINS] Allergy Severe RASH Verified 09/27/22 09:39 amoxicillin [AMOXICILLIN] Allergy Intermediate HIVES Verified 09/27/22 09:39 codeine Allergy Itching Verified 09/27/22 09:39 perflutren [From Definity] AdvReac Back Pain Verified 09/27/22 11:35 Active Medications: Current Medications Acetaminophen (Acetaminophen 325 Mg Tablet) 650 mg PO Q6H PRN PRN Reason: Pain, Mild (Pain Scale 1-3) Last Admin: 09/28/22 16:55 Dose: 650 mg Acetaminophen (Acetaminophen 325 Mg Tablet) 650 mg PO Q6H PRN PRN Reason: Fever Albuterol Sulfate (Albuterol Sulfate 90 Mcg 8 Gm Inhaler) 2 puff INHALE Q4H PRN PRN Reason: Shortness of Breath/Wheezing Aspirin (Aspirin Enteric Coated 81 Mg Tablet.Dr) 81 mg PO DAILY [facility] Last Admin: 09/28/22 09:05 Dose: 81 mg Atorvastatin Calcium (Atorvastatin Calcium 80 Mg Tablet) 80 mg PO BEDTIME [facility] Last Admin: 09/28/22 19:57 Dose: 80 mg Carvedilol (Carvedilol 3.125 Mg Tablet) 3.125 mg PO BID [facility]; Protocol Last Admin: 09/28/22 23:24 Dose: Not Given Docusate Sodium (Docusate Sodium 100 Mg Capsule) 100 mg PO BID [facility] Last Admin: 09/28/22 23:24 Dose: Not Given Furosemide (Furosemide 40 Mg/4 Ml Vial) 40 mg IVPUSH BID@0900,1800 [facility]; Protocol Last Admin: 09/28/22 16:44 Dose: 40 mg Gabapentin (Gabapentin 100 Mg Capsule) 200 mg PO BID [facility] Last Admin: 09/28/22 19:56 Dose: 200 mg Glucose (Glucose Gel 15 Gm Gel..Gram.) 15 gm PO Q15M PRN; Protocol PRN Reason: per Hypoglycemia Standing Ord. Last Admin: 09/27/22 09:27 Dose: 15 gm Heparin Sodium (Porcine) (Heparin Sodium,Porcine 5,000 Unit/Ml Vial) 5,000 unit SUBCUT Q12H [facility] Last Admin: 09/28/22 16:44 Dose: 5,000 unit Dextrose (D10) 250 mls @ 750 mls/hr IV Q15M PRN; Protocol PRN Reason: per Hypoglycemia Standing Ord. Last Infusion: 09/28/22 07:47 Dose: Infused Dextrose (D5w) 1,000 mls @ 100 mls/hr IVCONT .Q10H [facility] Last Admin: 09/28/22 20:06 Dose: 100 mls/hr Insulin Human Lispro (Insulin Lispro 100 Unit/Ml 3 Ml Vial) 0 unit SUBCUT QIDACHS [facility]; Protocol Last Admin: 09/28/22 23:25 Dose: Not Given Lisinopril (Lisinopril 20 Mg Tablet) 20 mg PO DAILY [facility]; Protocol Last Admin: 09/28/22 09:05 Dose: 20 mg Montelukast Sodium (Montelukast Sodium 10 Mg Tablet) 10 mg PO BEDTIME [facility] Last Admin: 09/28/22 20:45 Dose: 10 mg Morphine Sulfate (Morphine Sulfate 2 Mg/Ml Cartridge) 1 mg IVPUSH Q4H PRN; Protocol PRN Reason: Pain, Moderate (Pain Scale 4-6 Last Admin: 09/27/22 20:09 Dose: 1 mg Morphine Sulfate (Morphine Sulfate 2 Mg/Ml Cartridge) 2 mg IVPUSH Q4H PRN; Protocol PRN Reason: Pain, Severe (Pain Scale 7-10) Last Admin: 09/28/22 19:59 Dose: 2 mg Ondansetron HCl (Ondansetron Hcl 4 Mg/2 Ml Vial) 4 mg IVPUSH Q8H PRN PRN Reason: Nausea and Vomiting Oxycodone HCl (Oxycodone Hcl Immed Release 5 Mg Tablet) 5 mg PO Q4H PRN PRN Reason: Pain, Moderate (Pain Scale 4-6 Last Admin: 09/28/22 21:46 Dose: 5 mg Senna (Sennosides 8.6 Mg Tablet) 17.2 mg PO BEDTIME PRN PRN Reason: Constipation Sodium Chloride (0.9 % Sodium Chloride Flush 3 Ml Syringe) 3 ml IVFLUSH QSHIFT [facility] Last Admin: 09/28/22 20:01 Dose: 3 ml Ticagrelor (Ticagrelor 90 Mg Tablet) 90 mg PO BID [facility] Last Admin: 09/28/22 19:56 Dose: 90 mg Tiotropium [place] (Tiotropium [place] 18 Mcg Cap.W.Dev) 1 puff INHALE RDAILY [facility] Last Admin: 09/28/22 08:50 Dose: 1 puff Home Medications Medication Instructions Recorded Confirmed Last Taken Type umeclidinium 62.5 mcg/actuation 1 puff PO DAILY 10/31/21 09/26/22 09/07/22 History blister powder for inhalation (Incruse Ellipta) montelukast 10 mg tablet 1 tab PO BEDTIME 02/13/22 09/26/22 09/07/22 History insulin glargine 100 unit/mL (3 20 unit subcut BID 03/23/22 09/26/22 09/07/22 History mL) subcutaneous pen (Lantus Solostar U-100 Insulin) gabapentin 300 mg capsule 2 cap PO BID 05/01/22 09/15/22 09/07/22 History albuterol sulfate 2.5 mg/3 mL 1 vial inhalation Q6H PRN Wheezing 06/19/22 09/26/22 09/07/22 History (0.083 %) solution for nebulization albuterol sulfate 90 mcg/actuation 1 puff inhalation Q4H PRN Wheezing 06/19/22 09/26/22 09/07/22 History aerosol inhaler (Ventolin HFA) lisinopril 20 mg tablet 20 mg PO DAILY 09/08/22 09/26/22 09/07/22 History furosemide 40 mg tablet 40 mg PO BID 09/12/22 09/26/22 Unknown History oxycodone 5 mg tablet 5 mg PO Q6H PRN Pain (Scale Score 09/26/22 09/26/22 Unknown History 4-6) Physical Exam Vital Signs and Narrative: Vital Signs: Last Vital Signs Temp 98.0 F 09/28/22 23:38 Pulse 79 09/28/22 23:38 Resp 19 09/28/22 23:38 BP 110/65 09/28/22 23:38 Pulse Ox 99 09/28/22 23:38 O2 Del Method Room Air 09/28/22 23:38 Oxygen Flow Rate 2 09/28/22 07:41 BMI result Body Mass Index 26.2 Results Labs 09/28/22 07:51 09/28/22 06:58 Labs: Laboratory Results - last 24 hr 09/28/22 09/28/22 09/28/22 06:58 06:58 07:17 MCV MCH MCHC RDW Plt Count MPV Immature Gran % (Auto) Neut % (Auto) Lymph % (Auto) [place] % (Auto) Eos % (Auto) Baso % (Auto) Lymph # (Auto) [place] # (Auto) Eos # (Auto) Baso # (Auto) Abs Immat Gran (auto) Absolute Neuts (auto) Absolute Nucleated RBC Nucleated RBC % (auto) Anion Gap 16 Estim Creat Clear Calc 68.9 Estimated GFR > 60 POC Glucose 21 L* Random Glucose 21 L* Calcium 8.6 Troponin I High Sens B-Natriuretic Peptide 3117 H Random Cortisol 09/28/22 09/28/22 09/28/22 07:50 07:51 07:51 MCV MCH MCHC RDW Plt Count MPV Immature Gran % (Auto) Neut % (Auto) Lymph % (Auto) [place] % (Auto) Eos % (Auto) Baso % (Auto) Lymph # (Auto) [place] # (Auto) Eos # (Auto) Baso # (Auto) Abs Immat Gran (auto) Absolute Neuts (auto) Absolute Nucleated RBC Nucleated RBC % (auto) Anion Gap Estim Creat Clear Calc Estimated GFR POC Glucose 164 H Random Glucose Calcium Troponin I High Sens 50.6 H* B-Natriuretic Peptide Random Cortisol 15.5 09/28/22 09/28/22 09/28/22 07:51 09:00 10:00 MCV 68.2 L MCH 19.6 L MCHC 28.8 L RDW 22.8 H Plt Count 153 L MPV Not Reportable Immature Gran % (Auto) 0.4 Neut % (Auto) 80.6 H Lymph % (Auto) 11.2 L [place] % (Auto) 6.8 Eos % (Auto) 0.4 Baso % (Auto) 0.6 Lymph # (Auto) 0.6 L [place] # (Auto) 0.4 Eos # (Auto) 0.0 Baso # (Auto) 0.0 Abs Immat Gran (auto) 0.02 Absolute Neuts (auto) 4.3 Absolute Nucleated RBC 0.000 Nucleated RBC % (auto) 0.0 Anion Gap Estim Creat Clear Calc Estimated GFR POC Glucose 89 158 H Random Glucose Calcium Troponin I High Sens B-Natriuretic Peptide Random Cortisol 09/28/22 09/28/22 09/28/22 11:36 16:14 19:33 MCV MCH MCHC RDW Plt Count MPV Immature Gran % (Auto) Neut % (Auto) Lymph % (Auto) [place] % (Auto) Eos % (Auto) Baso % (Auto) Lymph # (Auto) [place] # (Auto) Eos # (Auto) Baso # (Auto) Abs Immat Gran (auto) Absolute Neuts (auto) Absolute Nucleated RBC Nucleated RBC % (auto) Anion Gap Estim Creat Clear Calc Estimated GFR POC Glucose 203 H 206 H 148 H Random Glucose Calcium Troponin I High Sens B-Natriuretic Peptide Random Cortisol 09/29/22 00:02 MCV MCH MCHC RDW Plt Count MPV Immature Gran % (Auto) Neut % (Auto) Lymph % (Auto) [place] % (Auto) Eos % (Auto) Baso % (Auto) Lymph # (Auto) [place] # (Auto) Eos # (Auto) Baso # (Auto) Abs Immat Gran (auto) Absolute Neuts (auto) Absolute Nucleated RBC Nucleated RBC % (auto) Anion Gap Estim Creat Clear Calc Estimated GFR POC Glucose 217 H Random Glucose Calcium Troponin I High Sens B-Natriuretic Peptide Random Cortisol Assessment and Plan Time Spent With Patient Time: Total time managing care of this patient today ____ minutes.
[2022-09-29] MEDS: Morphine Sulfate 2 MG/ML CARTRIDGE IVPUSH ×3 (00:19→10:34)
[2022-09-29] MEDS: oxyCODONE HCl Immed Release 5 MG TABLET PO ×2 (02:25→07:54)
[2022-09-29 04:00] VITALS: BP 101/58; PULSE 85; RESP 19; TEMP 36.7; O2SAT 98
[2022-09-29] MEDS: Heparin Sodium,Porcine 5,000 UNIT/ML VIAL 5000 UNIT SUBCUT (04:43)
[2022-09-29 05:31] VITALS: BMI 26.6
[2022-09-29 06:43] LABS: MANUAL DIFF FLAG NO
[2022-09-29 07:17] LABS: Basophils Percent Auto 0.7 % (0-2); Eosinophils Absolute Auto 0.1 X10*3/uL (0.0-0.4); Eosinophils Percent Auto 1.3 % (0-4); Hematocrit 30.2 % (37.0-47.0); Hemoglobin 8.9 g/dl (12.0-16.0); Imm Gran Abs Auto 0.05 X10*3/uL (0.00-0.03); Imm Gran Pct Auto 0.9 % (0.0-0.4); Lymphocytes Absolute Auto 0.9 X10*3/uL (1.2-4.9); Lymphocytes Percent Auto 17.1 % (20-40); Mean Corpuscular HGB Conc 29.5 g/dl (31.0-35.0); Mean Corpuscular Hemoglobin 20.1 pg (27.0-33.0); Mean Corpuscular Volume 68.2 fL (80.0-98.0); Monocytes Absolute Auto 0.4 X10*3/uL (0.1-1.2); Monocytes Percent Auto 6.8 % (2-11); Neutrophils Percent Auto 73.2 % (45-73); PLT ABN DIST 1; Platelet Count 159 X10*3/uL (160-400); Red Blood Count 4.43 X10*6/uL (4.20-5.50); Red Cell Distribution Width 23.1 % (11.0-16.0); SCAN SMEAR FLAG 1; White Blood Count 5.4 X10*3/uL (4.8-10.8)
[2022-09-29 07:21] VITALS: BP 104/69; PULSE 84; RESP 20; TEMP 36.7; O2SAT 96
[2022-09-29 07:26] LABS: Glucose, Whole Blood 305 mg/dL (60-115)
[2022-09-29 07:32] VITALS: PULSE 79; RESP 18; O2SAT 99
--- NOTE | 2022-09-29 07:41 | PC.NURSE ---
2mg morphine dose given but not scanned on 09/26 @0840. administration recorded on 09/29 by SUSU
[2022-09-29] MEDS: Docusate Sodium 100 MG CAPSULE PO (07:54)
[2022-09-29] MEDS: lisinopriL 20 MG TABLET PO (07:54)
[2022-09-29 07:55] LABS: Alanine Aminotransferase 11 U/L (0-31); Albumin Level 2.5 g/dL (3.5-5.0); Alkaline Phosphatase 78 U/L (39-117); Anion Gap 14 (12-20); Aspartate Amino Transferase 11 U/L (5-31); Blood Urea Nitrogen 22 mg/dL (9-16); Calcium 7.7 mg/dL (8.4-10.2); Carbon Dioxide 33 mmol/L (22-29); Chloride 93 mmol/L (96-108); Creatinine Clr Calc Pharmacy 61.6; Estimated Glomerular Filt Rate 58; Glucose Fasting 271 mg/dL (60-99); Potassium 3.9 mmol/L (3.3-5.1); Sodium 136 mmol/L (135-145); Total Protein 5.1 g/dL (6.5-8.0)
[2022-09-29] MEDS: Gabapentin 100 MG CAPSULE 200 MG PO (07:55)
[2022-09-29] MEDS: carvediloL 3.125 MG TABLET PO (07:56)
[2022-09-29] MEDS: Ticagrelor 90 MG TABLET PO (07:56)
[2022-09-29] MEDS: Aspirin Enteric Coated 81 MG TABLET.DR PO (07:56)
[2022-09-29] MEDS: Acetaminophen 325 MG TABLET 650 MG PO (07:56)
[2022-09-29] MEDS: Furosemide 40 MG/4 ML VIAL IVPUSH (07:57)
[2022-09-29] MEDS: Insulin Lispro 100 UNIT/ML 3 ML VIAL SUBCUT (07:57)
--- NOTE | 2022-09-29 10:02 | P.PNCA_ITS ---
Subjective Subjective Date of Service: 09/29/22 Interval history: She states that she is feeling fine. Denies any cardiac symptoms like angina or shortness of breath or in fact anything else of concern. Review of Systems Review of Systems Yes all other systems are reviewed and are negative Constitutional: Reports as per HPI and Reports no additional constitutional complaints Eyes: Reports as per HPI and Denies no additional eye complaints Denies system reviewed and no additional complaints, except as documented and Reports as per HPI Cardiovascular: Reports as per HPI, Reports no additional cardiovascular complaints, Denies acrocyanosis, Denies cool extremities, Denies chest pain, Denies leg edema, Denies lightheadedness, Denies palpitations and Denies dyspnea Respiratory: Reports as per HPI, Denies no additional respiratory complaints and Denies dyspnea Gastrointestinal: Reports as per HPI and Denies no additional gastrointestinal complaints Genitourinary: Reports as per HPI Musculoskeletal: Reports no additional musculoskeletal complaints and Reports as per HPI Skin/Breast: Reports system reviewed and no additional complaints, except as docu Reports system reviewed and no additional complaints, except as documented and Reports as per HPI Psychiatric: Reports no additional psychiatric complaints and Reports as per HPI Endocrine: Reports no additional endocrine complaints, Reports as per HPI and Denies palpitations Hematologic/Lymphatic: Reports no additional hematologic/lymphatic complaints and Reports as per HPI Allergic/Immunologic: Reports no additional allergic/immunologic complaints and Reports as per HPI Physical Exam Vital Signs: Last Vital Signs Temp 98.0 F 09/29/22 07:21 Pulse 79 09/29/22 07:32 Resp 18 09/29/22 07:32 BP 104/69 09/29/22 07:21 Pulse Ox 96 09/29/22 07:21 O2 Del Method Room Air 09/29/22 07:21 Oxygen Flow Rate 2 09/28/22 07:41 BMI result Body Mass Index 26.6 Const General: comfortable and no acute distress Orientation/consciousness: patient oriented x3 HEENT Other: Unremarkable Head: Yes normal to inspection Neck Neck: Yes normal visual inspection Chest Chest palpation & inspection: normal inspection of the chest Resp Auscultation: rhonchi and diminished lung sounds Cardio Palpation: normal PMI Heart sounds: S1 normal heart sound present, S2 normal heart sound present, no gallops, no murmurs and no rubs GI Palpation (GI): Soft to palpation Back/Spine/Pelvis Other: unremarkable Skin General skin exam: no rashes or lesions noted Neuro General: patient oriented x3 Extrem Other: L BKA. slight swelling right side. General: Yes normal to inspection Psych Mental Status: mental status grossly normal Objective Labs and Meds 09/29/22 06:17 09/29/22 06:17 Lab results: Laboratory Results - last 24 hr 09/28/22 09/28/22 09/28/22 10:00 11:36 16:14 WBC RBC Hgb Hct MCV MCH MCHC RDW Plt Count MPV Immature Gran % (Auto) Neut % (Auto) Lymph % (Auto) [place] % (Auto) Eos % (Auto) Baso % (Auto) Lymph # (Auto) [place] # (Auto) Eos # (Auto) Baso # (Auto) Abs Immat Gran (auto) Absolute Neuts (auto) Absolute Nucleated RBC Nucleated RBC % (auto) Sodium Potassium Chloride Carbon Dioxide Anion Gap BUN Creatinine Estim Creat Clear Calc Estimated GFR POC Glucose 158 H 203 H 206 H Fasting Glucose Calcium Total Bilirubin AST ALT Alkaline Phosphatase Total Protein Albumin 09/28/22 09/29/22 09/29/22 19:33 00:02 06:17 WBC 5.4 RBC 4.43 Hgb 8.9 L Hct 30.2 L MCV 68.2 L MCH 20.1 L MCHC 29.5 L RDW 23.1 H Plt Count 159 L MPV Not Reportable Immature Gran % (Auto) 0.9 H Neut % (Auto) 73.2 H Lymph % (Auto) 17.1 L [place] % (Auto) 6.8 Eos % (Auto) 1.3 Baso % (Auto) 0.7 Lymph # (Auto) 0.9 L [place] # (Auto) 0.4 Eos # (Auto) 0.1 Baso # (Auto) 0.0 Abs Immat Gran (auto) 0.05 H Absolute Neuts (auto) 4.0 Absolute Nucleated RBC 0.000 Nucleated RBC % (auto) 0.0 Sodium Potassium Chloride Carbon Dioxide Anion Gap BUN Creatinine Estim Creat Clear Calc Estimated GFR POC Glucose 148 H 217 H Fasting Glucose Calcium Total Bilirubin AST ALT Alkaline Phosphatase Total Protein Albumin 09/29/22 09/29/22 06:17 07:22 WBC RBC Hgb Hct MCV MCH MCHC RDW Plt Count MPV Immature Gran % (Auto) Neut % (Auto) Lymph % (Auto) [place] % (Auto) Eos % (Auto) Baso % (Auto) Lymph # (Auto) [place] # (Auto) Eos # (Auto) Baso # (Auto) Abs Immat Gran (auto) Absolute Neuts (auto) Absolute Nucleated RBC Nucleated RBC % (auto) Sodium 136 Potassium 3.9 Chloride 93 L Carbon Dioxide 33 H Anion Gap 14 BUN 22 H Creatinine 1.00 Estim Creat Clear Calc 61.6 Estimated GFR 58 POC Glucose 305 H Fasting Glucose 271 H Calcium 7.7 L D Total Bilirubin 2.0 H AST 11 ALT 11 Alkaline Phosphatase 78 Total Protein 5.1 L Albumin 2.5 L Progress Note: A&P Assessment and plan (1) Acute on chronic combined systolic and diastolic CHF, NYHA class 3: Status: Acute (2) Atherosclerotic cardiovascular disease: Status: Acute (3) PAD (peripheral artery disease): Status: Acute Plan Pertinent data reviewed. EKG shows evidence of extensive anterior infarction. In the echocardiogram, LVEF 10-15%. Wall motion abnormalities consistent with underlying coronary disease. Per last cardiac catheterization from August, occluded LAD, treated by PCI. Otherwise, known multivessel CAD. High sensitivity troponins are slightly elevated at 79, 67, 56 and 62, 50. Cardiac BNP is 4803, followed by 3117. Abdomen CT shows small to moderate volume of abdominal ascites. Small bilateral pleural effusions. Small pericardial effusion. Chest x-ray reported have stable enlargement of cardiac silhouette. Increased central bronchovascular markings and lower lobe airspace disease suggestive of pneumonia. Yesterday, she had rapid response called because of hypoglycemia and hypothermia. It seems that that has been resolved and she is almost back to normal self. Today I tried to engage her in conversation regarding her cardiac issues incl uding a poor heart function. However, her response was that her heart is completely normal and I do not know what I am talking about. Tried to explain this repeatedly but her response was very much the same that she is feeling fine and there are no issues from her end. Hence there is clearly lack of comprehension overall. On speaking to the RN, it seems that she just does not understand things and/or does not care. Hence difficult really manage this. Per Dr. Lopez, he is also called the family and discussed. Overall, she does seem compensated but with multiple medical issues and poor cardiac function as well as noncompliance, remains at high risk of decompensation and . In spite of numerous explanations, she will not listen. Hence if able, at least get visiting nurses to go to her home and ensure she takes all her medications. Otherwise, if she is willing to come, can see in the clinic. However, based on the response today, may not happen. In fact she has never been seen in the clinic in Cardiology. Time Spent With Patient Time: Total time managing care of this patient today 55 minutes. This includes time spent in review of chart, laboratory data, imaging studies, review of telemetry, counseling patient, discussion with hospitalist, RN, documentation, coordination of care. Progress Note: Quality Stroke Does the patient have a stroke diagnosis?: No Procedures Date of Service Date of Service: 09/29/22
[2022-09-29 11:00] LABS: Glucose, Whole Blood 142 mg/dL (60-115)
[2022-09-29 11:12] VITALS: BP 112/76; PULSE 76; RESP 20; TEMP 36.5; O2SAT 96
--- NOTE | 2022-09-29 12:02 | P.DS_ITS ---
DS: Providers Provider Date of Service: 09/29/22 Date of admission: 09/26/22 16:04 Date of discharge: 09/29/22 Primary care physician: Emilie Dangelo MD Consults: 09/27/22 08:12 Consult to Cardiology Routine Consulting Provider[place] [facility] Reason for consultation: chf Has provider been notified: No 09/28/22 12:59 Consult to Wound Care Routine Consulting Provider: Abdirashid Lopez Reason for consultation: R lat foot wound, R 1st toe wound DS: Diagnosis Discharge Diagnosis (1) Acute on chronic combined systolic and diastolic CHF, NYHA class 3: Status: Acute (2) Atherosclerotic cardiovascular disease: Status: Acute (3) PAD (peripheral artery disease): Status: Acute DS: Summary Hospital Course Hospital Course: 52-year-old female with a past medical history as noted below presented to the emergency department with complaints of persistent diffuse abdominal pain, unable to tolerate p.o. intake, nausea, vomiting and shortness of breath.? Patient continues to state that she needs ?steroids and better pain control? and ?is upset because I am only getting oral pain medication?.? Patient is currently denying chest pain, shortness of breath at rest, psychological 19 exposure/contacts. Of note, patient was seen in this emergency department on 09/21/2022 and was di scharged on 14 days of cefuroxime/doxycycline which patient reports compliance, patient is also seen on 09/24 for similar symptoms and at that time the CT was performed which revealed small/moderate abdominal ascites, small dependent bilateral effusions however patient was sent home to continue previously prescribed regimen.? Chest x-ray:Stable enlargement of the cardiac silhouette. Increased central bronchovascular markings and lower lobe airspace disease suggestive of pneumonia. Foot x-ray:? Pending at time of this dictation KUB x-ray:? Pending at time of this dictation CT abdomen and pelvis without (09/24/2022):1.? Small to moderate volume of abdominal ascites. 2.? Splenomegaly. 3.? Stable left adrenal nodule. 4.? Small dependent bilateral pleural effusions. Small pericardial effusion. Initial laboratory results:? Hgb & Hct 8.6/30, platelets 165, K+ 3.2, chloride 94, common FA 37, random glucose 194, lactic acid and blood cultures obtained and pending, total bilirubin 2.2, direct bili 0.9, troponin had sensitivity 67.5 with a repeat of 56.8, BNP 48 with 3, total protein 5.7, albumin 2.9, lipase less than 4, urinalysis negative for infection, guaiac stool negative.? In the emergency department the patient received 4 mg IVP some friend, 30 mL of Maalox, 20 mg IV famotidine, 2 mg IV morphine sulfate, 60 mEq p.o. K+ chloride, 40 mg IVP Lasix, 3 mL albuterol/ipratropium nebulized, 2 g of IV cefepime and 5 mg p.o. oxycodone. Hospital Course Admitted to telemetry. The morning after admission rapid response was called secondary to a blood sugar of 20. In review of chart patient received for even Lantus however did not eat the evening before did not eat anything for breakfast. She responded to dextrose infusion. She was seen by Cardiology; she was somewhat resistant to care stating that her mine car dispatcher was in [place] in the mine car dispatcher at [facility] did know anything about her. I discussed with patient all records are available at this institution and that she needs to be more compliant with therapies. Long discussion with patient as the reason for her hospitalization is likely noncompliance to therapy. She is encouraged to comply with therapies because of risks of are extremely high without her meds. She is able to restate this and appears to understand. She will be discharged home to follow-up with her mine car dispatcher and her PCP Time Spent with Patient Time attestation: Total time managing care of this patient today ____ minutes. Discharge coordination time: Greater than 30 minutes Quality: Safe Use of Opioids Does Pt have an Active Cancer Diagnosis on the Problem List?: No Quality: Stroke Does the patient have a stroke diagnosis?: No Physical Exam Vital Signs: Vital Signs: Last Vital Signs Temp 97.7 F 09/29/22 11:12 Pulse 76 09/29/22 11:12 Resp 20 09/29/22 11:12 BP 112/76 09/29/22 11:12 Pulse Ox 96 09/29/22 11:12 O2 Del Method Room Air 09/29/22 11:12 Oxygen Flow Rate 2 09/28/22 07:41 BMI result Body Mass Index 26.6 Const: Other: Awake alert no acute distress Resp: Other: Clear to auscultation bilaterally no rales rhonchi or wheezes Cardio: Other: No S4; positive S1-S2; no S3 murmurs rubs gallops GI: Other: Soft nontender nondistended normoactive bowel sounds Extrem: Other: No edema bilat DS: Data Data Completed and Pending Completed studies during hospitalization [Text1]: Procedures Detachment at Left Lower Leg, High, Open Approach (09/15/22) Drainage of Left Foot Skin, External Approach (11/18/21) Excision of Left Foot Skin, External Approach (09/15/22) Excision of Left Foot Subcutaneous Tissue and Fascia, Open Approach (11/18/21) Insertion of Infusion Device into Superior Vena Cava, Percutaneous Approach (08/21/21) Introduction of Anesthetic Agent into Peripheral Nerves and Plexi, Percutaneous Approach (09/15/22) Transfusion of Nonautologous Red Blood Cells into Peripheral Vein, Percutaneous Approach (06/19/22) Labs on day of discharge: Laboratory Results - last 24 hr 09/28/22 09/28/22 09/29/22 16:14 19:33 00:02 WBC RBC Hgb Hct MCV MCH MCHC RDW Plt Count MPV Immature Gran % (Auto) Neut % (Auto) Lymph % (Auto) [place] % (Auto) Eos % (Auto) Baso % (Auto) Lymph # (Auto) [place] # (Auto) Eos # (Auto) Baso # (Auto) Abs Immat Gran (auto) Absolute Neuts (auto) Absolute Nucleated RBC Nucleated RBC % (auto) Sodium Potassium Chloride Carbon Dioxide Anion Gap BUN Creatinine Estim Creat Clear Calc Estimated GFR POC Glucose 206 H 148 H 217 H Fasting Glucose Calcium Total Bilirubin AST ALT Alkaline Phosphatase Total Protein Albumin 09/29/22 09/29/22 09/29/22 06:17 06:17 07:22 WBC 5.4 RBC 4.43 Hgb 8.9 L Hct 30.2 L MCV 68.2 L MCH 20.1 L MCHC 29.5 L RDW 23.1 H Plt Count 159 L MPV Not Reportable Immature Gran % (Auto) 0.9 H Neut % (Auto) 73.2 H Lymph % (Auto) 17.1 L [place] % (Auto) 6.8 Eos % (Auto) 1.3 Baso % (Auto) 0.7 Lymph # (Auto) 0.9 L [place] # (Auto) 0.4 Eos # (Auto) 0.1 Baso # (Auto) 0.0 Abs Immat Gran (auto) 0.05 H Absolute Neuts (auto) 4.0 Absolute Nucleated RBC 0.000 Nucleated RBC % (auto) 0.0 Sodium 136 Potassium 3.9 Chloride 93 L Carbon Dioxide 33 H Anion Gap 14 BUN 22 H Creatinine 1.00 Estim Creat Clear Calc 61.6 Estimated GFR 58 POC Glucose 305 H Fasting Glucose 271 H Calcium 7.7 L D Total Bilirubin 2.0 H AST 11 ALT 11 Alkaline Phosphatase 78 Total Protein 5.1 L Albumin 2.5 L 09/29/22 10:50 WBC RBC Hgb Hct MCV MCH MCHC RDW Plt Count MPV Immature Gran % (Auto) Neut % (Auto) Lymph % (Auto) [place] % (Auto) Eos % (Auto) Baso % (Auto) Lymph # (Auto) [place] # (Auto) Eos # (Auto) Baso # (Auto) Abs Immat Gran (auto) Absolute Neuts (auto) Absolute Nucleated RBC Nucleated RBC % (auto) Sodium Potassium Chloride Carbon Dioxide Anion Gap BUN Creatinine Estim Creat Clear Calc Estimated GFR POC Glucose 142 H Fasting Glucose Calcium Total Bilirubin AST ALT Alkaline Phosphatase Total Protein Albumin Preliminary micro results at discharge 09/26/22 16:02 Blood Culture - Preliminary Blood - Venous No growth after 48 hours. 09/26/22 16:02 Blood Culture - Preliminary Blood - Venous No growth after 48 hours. Discharge Plan Discharge Anticipated Discharge Date/Time: 09/29/22 11:38 Patient Disposition: Home Health Service Discharge Diagnosis: Acute exacerbation of systolic heart failure Referrals: [facility] [Other] - 1 Week Eimlie Dangelo MD [Primary Care Provider] - 1 Week Discharge Medications: New oxycodone 5 mg tablet 5 mg PO Q6H PRN (Reason: pain) Qty: 20 0RF Rx Instructions: Partial Fill upon patient request. Continued furosemide 40 mg Tablet 40 mg PO BID Qty: 30 0RF albuterol sulfate 2.5 mg /3 mL (0.083 %) solution for nebulization 1 vial inhalation Q6H PRN (Reason: Wheezing) Qty: 90 0RF lisinopril 20 mg tablet 20 mg PO DAILY Qty: 30 0RF gabapentin 300 mg capsule 2 cap PO BID Qty: 120 0RF montelukast 10 mg tablet 1 tab PO BEDTIME Qty: 30 0RF albuterol sulfate [Ventolin HFA] 90 mcg/actuation HFA aerosol inhaler 1 puff INHALATION Q4H PRN (Reason: Wheezing) Qty: 1 0RF Incruse Ellipta 62.5 mcg/actuation blister with device 1 puff PO DAILY Qty: 1 0RF atorvastatin 80 mg Tablet 80 mg PO BEDTIME 30 Days Qty: 30 0RF acetaminophen 325 mg Tablet 650 mg PO Q8H PRN (Reason: Pain, Mild (Pain Scale 1-3)) 30 Days Qty: 90 0RF polyethylene glycol 3350 17 gram Powder In Packet 17 g PO DAILY PRN (Reason: Constipation) 5 Days Qty: 30 0RF aspirin 81 mg Tablet,Delayed Release (Dr/Ec) 81 mg PO DAILY 30 Days Qty: 30 0RF carvedilol 3.125 mg Tablet 3.125 mg PO BID 30 Days Qty: 60 0RF Protocol: Hold for SBP/HR < HOLD for SBP < : 90 HOLD for HR < : 60 gabapentin 100 mg Capsule 200 mg PO BID 10 Days Qty: 40 0RF Brilinta 90 mg Tablet 90 mg PO BID 30 Days Qty: 60 0RF ondansetron 4 mg tablet,disintegrating 4 mg PO Q8H 3 Days Qty: 9 0RF Discontinued insulin glargine [Lantus Solostar U-100 Insulin] 100 unit/mL (3 mL) insulin pen 20 unit subcut BID oxycodone 5 mg tablet 5 mg PO Q6H PRN (Reason: Pain (Scale Score 4-6)) doxycycline hyclate 100 mg tablet 100 mg PO BID 14 Days Qty: 28 0RF cefuroxime axetil 500 mg tablet 500 mg PO BID 14 Days Qty: 28 0RF Discharge Orders: Discharge Order (Routine); Ordered 09/29/22 Ordered By: Abdirashid Lopez Diet: Advance to usual diet Activity on Discharge: As tolerated Stand Alone Forms: Patient Portal Discharge page Care Plan Goals: Continue all medicines as taking before hospital. Your insulin has been held into the follow-up with PCP and he can review her sugars Health Concerns: You need follow-up with Cardiology on a regular basis please call for axel ointment Plan of Treatment: Continue taking all medicines every day Assessment: See discharge summary
--- NOTE | 2022-09-29 12:02 | MHC.CM.PN ---
Per ROUNDS discussion, Patient is medically cleared for dc to home today, with services. Patient is active with [facility], who has been notified of today;'s dc. Patient is pleased to be going home today and she has indicated that her Boyfriend will provide transportation to home.
== END 2022-09-29 13:15 | disposition home health service (06) | DRG 194 ==
LOC: HO.ED 13:16 → HO.EDOVER 16:48 → HO.IMC 16:54
PROVIDERS: Nurse Practitioner Acute Care; Physician Assistant; Admitting Provider Registered Nurse; Emergency Provider Emergency Medicine; PCP Internal Medicine; Visit Provider Hospitalist
DX: I11.0 Hypertensive heart disease with heart failure (principal); E11.649 Type 2 diabetes mellitus with hypoglycemia without coma; E11.51 Type 2 diabetes mellitus with diabetic peripheral angiopathy without gangrene; E87.6 Hypokalemia; I50.43 Acute on chronic combined systolic (congestive) and diastolic (congestive) heart failure; I25.10 Atherosclerotic heart disease of native coronary artery without angina pectoris; J44.9 Chronic obstructive pulmonary disease, unspecified; R68.0 Hypothermia, not associated with low environmental temperature; E78.5 Hyperlipidemia, unspecified; Z89.512 Acquired absence of left leg below knee; Z91.199 Patient's noncompliance with other medical treatment and regimen due to unspecified reason; Z88.0 Allergy status to penicillin; Z88.5 Allergy status to narcotic agent; Z88.8 Allergy status to other drugs, medicaments and biological substances; Z79.82 Long term (current) use of aspirin; Z79.899 Other long term (current) drug therapy
CPT/HCPCS: 36415; 71046; 73630; 74018; 80048; 80053; 80076; 81001; 82272; 82533; 82947; 83605; 83690; 83880; 84484; 85025; 85027; 87040; 87086; 93005; 93306; 94640; 99285; J0692; J1643; J1940; J2270; J2405; Q9957

== ENCOUNTER 2022-10-05 22:01 | Emergency (ER) | payer OTHER, SELFPAY ==
--- NOTE | 2022-10-05 | ECG_ITS ---
Test Reason : SOB Blood Pressure : / mmHG Vent. Rate : 094 BPM Atrial Rate : 094 BPM P-R Int : 154 ms QRS Dur : 076 ms QT Int : 378 ms P-R-T Axes : 072 099 111 degrees QTc Int : 472 ms Normal sinus rhythm Possible Left atrial enlargement Rightward axis Low voltage QRS Cannot rule out Anteroseptal infarct (cited on or before 13-JUN-2022) Abnormal ECG When compared with ECG of 28-SEP-2022 07:33, Questionable change in initial forces of Anterior leads Nonspecific T wave abnormality no longer evident in Inferior leads Referred By: Generic ED Physician Electronically Signed By:Gurmeet Gallardo
--- NOTE | ~2022-10-05 | XR_ITS ---
EXAMINATION: XR CHEST CLINICAL INFORMATION: Shortness of breath. COMPARISON: 09/26/2022 chest radiographs. TECHNIQUE: 2 views of the chest were obtained. FINDINGS: No significant abnormality is noted involving the heart, lungs, mediastinum, bony thorax or soft tissues. XR/XR chest 2V IMPRESSION: No acute cardiopulmonary process.
[2022-10-05 22:07] VITALS: BP 112/70; PULSE 80
[2022-10-05 22:10] VITALS: BP 110/68; PULSE 94; RESP 20; TEMP 36.6; O2SAT 100; BMI 28.0
--- NOTE | 2022-10-05 22:31 | ED.SOB ---
HPI - SOB/Dyspnea General Chief Complaint: Dyspnea Stated Complaint: sob Time Seen by Provider: 10/05/22 22:29 Source: patient Mode of arrival: ambulatory Limitations: no limitations History of Present Illness HPI Narrative: 52-year-old female with past medical history of COPD, HFrEF, uncontrolled diabetes, neuropathy, HTN,? NSTEMI,? CAD status post STEMI status post left BKA on 09/20 on Brilinta comes here for shortness of breath feel like asthmatic attack also complaining of pain in the left leg lost her medications per patient her daughter stole her med , patient is saturating 100% at room air asking for pain medicine Related Data Previous Rx's Medication Instructions Recorded acetaminophen 325 mg tablet 650 mg PO Q8H PRN Pain, Mild (Pain 09/21/22 Scale 1-3) 30 days #90 tabs aspirin 81 mg tablet,delayed 81 mg PO DAILY 30 days #30 tabs 09/21/22 release atorvastatin 80 mg tablet 80 mg PO BEDTIME 30 days #30 tabs 09/21/22 carvedilol 3.125 mg tablet 3.125 mg PO BID 30 days #60 tabs 09/21/22 gabapentin 100 mg capsule 200 mg PO BID 10 days #40 caps 09/21/22 polyethylene glycol 3350 17 gram 17 g PO DAILY PRN Constipation 5 09/21/22 oral powder packet days #30 ea ticagrelor 90 mg tablet (Brilinta) 90 mg PO BID 30 days #60 tabs 09/21/22 ondansetron 4 mg disintegrating 4 mg PO Q8H 3 days #9 tabs 09/24/22 tablet albuterol sulfate 2.5 mg/3 mL 1 vial inhalation Q6H PRN Wheezing 09/29/22 (0.083 %) solution for nebulization #90 mL albuterol sulfate 90 mcg/actuation 1 puff inhalation Q4H PRN Wheezing 09/29/22 aerosol inhaler (Ventolin HFA) #1 g furosemide 40 mg tablet 40 mg PO BID #30 tabs 09/29/22 gabapentin 300 mg capsule 2 cap PO BID #120 caps 09/29/22 lisinopril 20 mg tablet 20 mg PO DAILY #30 tabs 09/29/22 montelukast 10 mg tablet 1 tab PO BEDTIME #30 tabs 09/29/22 oxycodone 5 mg tablet 5 mg PO Q6H PRN pain #20 tabs 09/29/22 umeclidinium 62.5 mcg/actuation 1 puff PO DAILY #1 ea 09/29/22 blister powder for inhalation (Incruse Ellipta) hydrocodone 5 mg-acetaminophen 325 1 tab PO Q6H PRN pain #20 tabs 10/05/22 mg tablet prednisone 20 mg tablet 40 mg PO DAILY #10 tabs 10/05/22 Allergies Allergy/AdvReac Type Severity Reaction Status Date / Time Penicillins [PENICILLINS] Allergy Severe RASH Verified 09/27/22 09:39 amoxicillin [AMOXICILLIN] Allergy Intermediate HIVES Verified 09/27/22 09:39 codeine Allergy Itching Verified 09/27/22 09:39 perflutren [From Definity] AdvReac Back Pain Verified 09/27/22 11:35 Review of Systems Review of Systems: Yes all other systems are reviewed and are negative [facility] Past Medical History Medical History Asthma Atherosclerotic cardiovascular disease Atrial tachycardia Below-knee amputation of left lower extremity Cellulitis in diabetic foot COPD (chronic obstructive pulmonary disease) Coronary artery disease COVID-19 vaccine series completed Diabetes Diabetic foot infection Diabetic foot infection Diabetic foot ulcer Diabetic toe ulcer Essential hypertension GERD (gastroesophageal reflux disease) Hyperglycemia due to diabetes mellitus Hypertension Ischemic cardiomyopathy Left against medical advice Left against medical advice Osteomyelitis Osteomyelitis 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 PAD (peripheral artery disease) Surgical History History of esophagogastroduodenoscopy (EGD) History of toe surgery (09/22/21) Status post below-knee amputation of left lower extremity (09/20/22) Family History Family History Mother Hx of CABG Sister CAD (coronary artery disease) Social History Social History Household Members: Family and Children Housing: Apartment Do you presently have visiting nurse or other home services: No Unable to assess alcohol history related to: Refusing to respond Alcohol intake: current Alcohol intake frequency: does not drink Alcohol type: other Patient Tobacco Use Status: Current everyday Tobacco user Tobacco use type: Cigarette Cigarette Packs Per Day: 0.5 Cigarettes Per Day: 6 Years Smoked: 43 e-Cigarette/Vaping Use: Currently Using Second Hand Smoke Exposure: Yes Substance Use Type: Marijuana Advance Directives: Yes Advance Directives on File: Yes Advance Directives Date on File: 09/22/22 service: No Current occupational status: disabled Physical Exam Vital Signs: Vital Signs: Last Vital Signs Temp 98.5 F 10/05/22 23:48 Pulse 91 10/05/22 23:48 Resp 16 10/05/22 23:48 BP 110/68 10/05/22 22:10 Pulse Ox 98 10/05/22 23:48 O2 Del Method Room Air 10/05/22 23:48 BMI result Body Mass Index 28.0 Appearance: Alert. Oriented X3. No acute distress. Eyes: PERRLA, No Nystagmus ENT: Pharynx normal. Oral Mucosa moist Neck: Normal inspection. Neck supple. CVS: Normal heart rate and rhythm. Pulses normal. Respiratory: No respiratory distress. Prolong air entry bilateral Equal air entry bilateral, no wheezing/rales/rhonchi Abdomen: Soft and nontender. Bowel sounds are present, no mass palpable, no CVA tenderness Skin: Skin warm and dry. Normal skin color. Normal skin turgor. Extremities: No lower extremity edema. No calf tenderness left BKA Neuro: Oriented X 3. No motor deficit. Medications Administered Discontinued Medications Generic Name Dose Route Start Last Admin Trade Name Freq PRN Reason Stop Dose Admin Albuterol Sulfate 2.5 mg/ 0 mg 10/05/22 22:55 10/05/22 23:03 Albuterol/Ipratropium 3 ml INHALE 10/05/22 22:56 2.5 each ONCE ONE Administration Hydromorphone HCl 1 mg 10/05/22 22:55 10/05/22 23:09 Hydromorphone Hcl 2 Mg/Ml Vial IVPUSH 10/05/22 22:56 1 mg ONCE ONE Administration Protocol Sodium Chloride 1,000 mls @ 999 mls/hr 10/05/22 22:55 10/05/22 23:09 Ns IV 10/05/22 23:55 999 mls/hr .Q1H1M ONE Administration Methylprednisolone Sodium Succinate 125 mg 10/05/22 22:55 10/05/22 23:09 Methylprednisolone Sod Succ 125 Mg/2 Ml Vial IVPUSH 10/05/22 22:56 125 mg ONCE ONE Administration Medical Decision Making Medical Decision Making [facility] Narrative: Patient's COPD/asthma with shortness of breath with saturating 99% at room air with chronically with chronically elevated troponin, no acute ischemic changes with chronic phantom pain discharge patient home on pain management advised to take prednisone and use inhaler and nebulizing treatment at home Differential Diagnosis Pneumonia/CHF/asthma/COPD Lab Data [facility] Lab Attestation statement: I reviewed the patient's lab results. 10/05/22 22:31 10/05/22 22:31 Labs: Lab Results 10/05/22 10/05/22 10/05/22 Range/Units 22:31 22:31 22:31 WBC 6.2 (4.8-10.8) X10*3/uL RBC 4.16 L (4.20-5.50) X10*6/uL Hgb 8.3 L (12.0-16.0) g/dl Hct 28.9 L (37.0-47.0) % MCV 69.5 L (80.0-98.0) fL MCH 20.0 L (27.0-33.0) pg MCHC 28.7 L (31.0-35.0) g/dl RDW 23.3 H (11.0-16.0) % Plt Count 182 (160-400) X10*3/uL MPV TNP Immature Gran % (Auto) 0.5 H (0.0-0.4) % Neut % (Auto) 69.6 (45-73) % Lymph % (Auto) 21.8 (20-40) % [place] % (Auto) 5.9 (2-11) % Eos % (Auto) 1.4 (0-4) % Baso % (Auto) 0.8 (0-2) % Lymph # (Auto) 1.4 (1.2-4.9) X10*3/uL [place] # (Auto) 0.4 (0.1-1.2) X10*3/uL Eos # (Auto) 0.1 (0.0-0.4) X10*3/uL Baso # (Auto) 0.1 (0.0-0.2) X10*3/uL Abs Immat Gran (auto) 0.03 (0.00-0.03) X10*3/uL Absolute Neuts (auto) 4.3 (2.0-8.3) x10*3/uL Absolute Nucleated RBC 0.040 H (0.0-0.012) X10*3/uL Nucleated RBC % (auto) 0.6 H (0.0-0.2) /100WBC Sodium 137 (135-145) mmol/L Potassium 4.0 (3.3-5.1) mmol/L Chloride 100 (96-108) mmol/L Carbon Dioxide 27 (22-29) mmol/L Anion Gap 14 (12-20) BUN 26 H (9-16) mg/dL Creatinine 0.98 (0.5-1.4) mg/dL Estim Creat Clear Calc 64.5 Estimated GFR 60 Random Glucose 274 H (60-115) mg/dL Calcium 8.7 D (8.4-10.2) mg/dL Troponin I High Sens 36.3 H (<3.5-17.0) ng/L Discharge Plan Discharge Clinical Impression: Asthma, Phantom limb pain Patient Disposition: Home, Self-Care Instructions: Asthma (ED), Leg Pain (ED) Additional Instructions: Continue using her nebulizing/inhaler Prednisone as prescribed Pain medication as prescribed for phantom pain of your L extremity Follow-up with your PCP/surgeon Prescriptions: New hydrocodone-acetaminophen 5-325 mg tablet 1 tab PO Q6H PRN (Reason: pain) Qty: 20 0RF Rx Instructions: Partial Fill upon patient request. prednisone 20 mg tablet 40 mg PO DAILY Qty: 10 0RF No Action oxycodone 5 mg tablet 5 mg PO Q6H PRN (Reason: pain) Qty: 20 0RF Rx Instructions: Partial Fill upon patient request. furosemide 40 mg Tablet 40 mg PO BID Qty: 30 0RF albuterol sulfate 2.5 mg /3 mL (0.083 %) solution for nebulization 1 vial inhalation Q6H PRN (Reason: Wheezing) Qty: 90 0RF lisinopril 20 mg tablet 20 mg PO DAILY Qty: 30 0RF gabapentin 300 mg capsule 2 cap PO BID Qty: 120 0RF montelukast 10 mg tablet 1 tab PO BEDTIME Qty: 30 0RF albuterol sulfate [Ventolin HFA] 90 mcg/actuation HFA aerosol inhaler 1 puff INHALATION Q4H PRN (Reason: Wheezing) Qty: 1 0RF Incruse Ellipta 62.5 mcg/actuation blister with device 1 puff PO DAILY Qty: 1 0RF atorvastatin 80 mg Tablet 80 mg PO BEDTIME 30 Days Qty: 30 0RF acetaminophen 325 mg Tablet 650 mg PO Q8H PRN (Reason: Pain, Mild (Pain Scale 1-3)) 30 Days Qty: 90 0RF polyethylene glycol 3350 17 gram Powder In Packet 17 g PO DAILY PRN (Reason: Constipation) 5 Days Qty: 30 0RF aspirin 81 mg Tablet,Delayed Release (Dr/Ec) 81 mg PO DAILY 30 Days Qty: 30 0RF carvedilol 3.125 mg Tablet 3.125 mg PO BID 30 Days Qty: 60 0RF Protocol: Hold for SBP/HR < HOLD for SBP < : 90 HOLD for HR < : 60 gabapentin 100 mg Capsule 200 mg PO BID 10 Days Qty: 40 0RF Brilinta 90 mg Tablet 90 mg PO BID 30 Days Qty: 60 0RF ondansetron 4 mg tablet,disintegrating 4 mg PO Q8H 3 Days Qty: 9 0RF Interventions: ED Discharge Assessment Last Done: 10/06/22 00:07 Discharge Date/Time: 10/06/22 00:07
[2022-10-05 22:37] LABS: MANUAL DIFF FLAG NO
[2022-10-05 22:40] LABS: Basophils Absolute Auto 0.1 X10*3/uL (0.0-0.2); Basophils Percent Auto 0.8 % (0-2); Eosinophils Absolute Auto 0.1 X10*3/uL (0.0-0.4); Eosinophils Percent Auto 1.4 % (0-4); Hematocrit 28.9 % (37.0-47.0); Hemoglobin 8.3 g/dl (12.0-16.0); Imm Gran Abs Auto 0.03 X10*3/uL (0.00-0.03); Imm Gran Pct Auto 0.5 % (0.0-0.4); Lymphocytes Absolute Auto 1.4 X10*3/uL (1.2-4.9); Lymphocytes Percent Auto 21.8 % (20-40); Mean Corpuscular HGB Conc 28.7 g/dl (31.0-35.0); Mean Corpuscular Volume 69.5 fL (80.0-98.0); Monocytes Absolute Auto 0.4 X10*3/uL (0.1-1.2); Monocytes Percent Auto 5.9 % (2-11); NRBC Pct Auto 0.6 /100WBC (0.0-0.2); Neutrophils Absolute Auto 4.3 x10*3/uL (2.0-8.3); Neutrophils Percent Auto 69.6 % (45-73); Platelet Count 182 X10*3/uL (160-400); Red Blood Count 4.16 X10*6/uL (4.20-5.50); Red Cell Distribution Width 23.3 % (11.0-16.0); White Blood Count 6.2 X10*3/uL (4.8-10.8)
[2022-10-05 23:01] LABS: Anion Gap 14 (12-20); Blood Urea Nitrogen 26 mg/dL (9-16); Calcium 8.7 mg/dL (8.4-10.2); Carbon Dioxide 27 mmol/L (22-29); Chloride 100 mmol/L (96-108); Creatinine Clr Calc Pharmacy 64.5; Estimated Glomerular Filt Rate 60; Glucose Random 274 mg/dL (60-115); Sodium 137 mmol/L (135-145)
[2022-10-05 23:05] VITALS: PULSE 94; RESP 20; O2SAT 98
[2022-10-05 23:09] LABS: Troponin-I High Sensitivity 36.3 ng/L (<3.5-17.0)
[2022-10-05] MEDS: HYDROmorphone HCl 2 MG/ML VIAL 1 MG IVPUSH (23:09)
[2022-10-05] MEDS: methylPREDNISolone Sod Succ 125 MG/2 ML VIAL IVPUSH (23:09)
[2022-10-05] MEDS: 0.9 % Sodium Chloride 1,000 ML 999 ML IV (23:09)
[2022-10-05 23:48] VITALS: PULSE 91; RESP 16; TEMP 36.9; O2SAT 98
== END 2022-10-06 00:07 | disposition home or self-care (01) ==
PROVIDERS: Emergency Provider Internal Medicine
DX: R06.02 Shortness of breath (principal); I25.10 Atherosclerotic heart disease of native coronary artery without angina pectoris; J45.909 Unspecified asthma, uncomplicated; G54.6 Phantom limb syndrome with pain; R94.31 Abnormal electrocardiogram [ECG] [EKG]; Z79.899 Other long term (current) drug therapy
CPT/HCPCS: 36415; 71046; 80048; 84484; 85025; 93005; 94640; 96374; 96375; 99284; J1170; J2930

== ENCOUNTER → 2022-10-07 09:33 | Outpatient (BNVA) | payer OTHER, SELFPAY | PROVIDERS: Visit Provider Surgery | DX: Z47.81 Encounter for orthopedic aftercare following surgical amputation (principal); Z89.512 Acquired absence of left leg below knee | CPT/HCPCS: 99212 ==

== ENCOUNTER 2022-10-08 12:20 | Emergency (ER) | payer OTHER, SELFPAY ==
[2022-10-08 12:31] VITALS: BP 139/89; PULSE 97; RESP 14; TEMP 36.5; O2SAT 100; BMI 26.5
--- NOTE | 2022-10-08 12:35 | ECG_ITS ---
Test Reason : SOB Blood Pressure : / mmHG Vent. Rate : 094 BPM Atrial Rate : 094 BPM P-R Int : 140 ms QRS Dur : 088 ms QT Int : 384 ms P-R-T Axes : 075 080 103 degrees QTc Int : 480 ms Normal sinus rhythm Possible Anterolateral infarct (cited on or before 13-JUN-2022) Abnormal ECG When compared with ECG of 05-OCT-2022 22:21, Questionable change in initial forces of Anterior leads Referred By: Generic ED Physician Electronically Signed By:Gurmeet Gallardo
[2022-10-08 12:36] VITALS: BP 162/90; PULSE 96
[2022-10-08 12:38] LABS: Glucose, Whole Blood 404 mg/dL (60-115)
[2022-10-08 12:51] VITALS: BP 130/84; PULSE 91; RESP 18; TEMP 36.4; O2SAT 100
[2022-10-08 13:17] VITALS: BP 124/78; PULSE 92; RESP 12; TEMP 36.4; O2SAT 100
[2022-10-08 13:29] LABS: MANUAL DIFF FLAG NO
[2022-10-08 13:31] LABS: Hematocrit 30.1 % (37.0-47.0); Hemoglobin 8.7 g/dl (12.0-16.0); Imm Gran Abs Auto 0.05 X10*3/uL (0.00-0.03); Imm Gran Pct Auto 0.6 % (0.0-0.4); Lymphocytes Absolute Auto 0.6 X10*3/uL (1.2-4.9); Lymphocytes Percent Auto 6.5 % (20-40); Mean Corpuscular HGB Conc 28.9 g/dl (31.0-35.0); Mean Corpuscular Hemoglobin 19.8 pg (27.0-33.0); Mean Corpuscular Volume 68.4 fL (80.0-98.0); Monocytes Absolute Auto 0.4 X10*3/uL (0.1-1.2); Monocytes Percent Auto 4.6 % (2-11); Neutrophils Absolute Auto 7.5 x10*3/uL (2.0-8.3); Neutrophils Percent Auto 88.3 % (45-73); Platelet Count 211 X10*3/uL (160-400); White Blood Count 8.5 X10*3/uL (4.8-10.8)
[2022-10-08 13:33] LABS: NRBC Pct Auto 1.2 /100WBC (0.0-0.2)
--- NOTE | 2022-10-08 13:38 | ED.SOB ---
HPI - SOB/Dyspnea General Chief Complaint: Dyspnea Stated Complaint: SOB Time Seen by Provider: 10/08/22 13:03 Source: patient Mode of arrival: ambulatory Limitations: no limitations History of Present Illness HPI Narrative: A 52-year-old female with past medical history of COPD, HFrEF, uncontrolled diabetes, neuropathy, HTN, STEMI, CAD, left BKA on Brilinta came here for evaluation of asthma exacerbation, patient had multiple ED visits for similar symptoms, stated that the [facility] did not come today to give her her diabetes medication and her blood sugar is high, patient also is complaining of right foot pain. Related Data Previous Rx's Medication Instructions Recorded acetaminophen 325 mg tablet 650 mg PO Q8H PRN Pain, Mild (Pain 09/21/22 Scale 1-3) 30 days #90 tabs aspirin 81 mg tablet,delayed 81 mg PO DAILY 30 days #30 tabs 09/21/22 release atorvastatin 80 mg tablet 80 mg PO BEDTIME 30 days #30 tabs 09/21/22 carvedilol 3.125 mg tablet 3.125 mg PO BID 30 days #60 tabs 09/21/22 gabapentin 100 mg capsule 200 mg PO BID 10 days #40 caps 09/21/22 polyethylene glycol 3350 17 gram 17 g PO DAILY PRN Constipation 5 09/21/22 oral powder packet days #30 ea ticagrelor 90 mg tablet (Brilinta) 90 mg PO BID 30 days #60 tabs 09/21/22 ondansetron 4 mg disintegrating 4 mg PO Q8H 3 days #9 tabs 09/24/22 tablet albuterol sulfate 2.5 mg/3 mL 1 vial inhalation Q6H PRN Wheezing 09/29/22 (0.083 %) solution for nebulization #90 mL albuterol sulfate 90 mcg/actuation 1 puff inhalation Q4H PRN Wheezing 09/29/22 aerosol inhaler (Ventolin HFA) #1 g furosemide 40 mg tablet 40 mg PO BID #30 tabs 09/29/22 gabapentin 300 mg capsule 2 cap PO BID #120 caps 09/29/22 lisinopril 20 mg tablet 20 mg PO DAILY #30 tabs 09/29/22 montelukast 10 mg tablet 1 tab PO BEDTIME #30 tabs 09/29/22 umeclidinium 62.5 mcg/actuation 1 puff PO DAILY #1 ea 09/29/22 blister powder for inhalation (Incruse Ellipta) hydrocodone 5 mg-acetaminophen 325 1 tab PO Q6H PRN pain #20 tabs 10/05/22 mg tablet prednisone 20 mg tablet 40 mg PO DAILY #10 tabs 10/05/22 oxycodone 5 mg tablet 5 mg PO Q6H PRN pain #20 tabs 10/07/22 Allergies Allergy/AdvReac Type Severity Reaction Status Date / Time Penicillins [PENICILLINS] Allergy Severe RASH Verified 10/07/22 09:49 amoxicillin [AMOXICILLIN] Allergy Intermediate HIVES Verified 10/07/22 09:49 codeine Allergy Itching Verified 10/07/22 09:49 perflutren [From [facility]] AdvReac Back Pain Verified 10/07/22 09:49 Review of Systems Review of Systems: All other systems are reviewed and are negative Constitutional: Reports as per HPI and Reports no additional constitutional complaints Eyes: Reports as per HPI and Reports no additional eye complaints Reports system reviewed and no additional complaints, except as documented Cardiovascular: Reports as per HPI and Reports no additional cardiovascular complaints Respiratory: Reports as per HPI and Reports no additional respiratory complaints Gastrointestinal: Reports as per HPI and Reports no additional gastrointestinal complaints Genitourinary: Reports no additional female genitourinary complaints Musculoskeletal: Reports no additional musculoskeletal complaints Skin/Breast: Reports system reviewed and no additional complaints, except as docu Psychiatric: Reports no additional psychiatric complaints Endocrine: Reports no additional endocrine complaints Hematologic/Lymphatic: Reports no additional hematologic/lymphatic complaints Allergic/Immunologic: Reports no additional allergic/immunologic complaints Reports system reviewed and no additional complaints, except as documented and Reports Abnormal speech present [facility] Past Medical History Medical History Asthma Atherosclerotic cardiovascular disease Atrial tachycardia Below-knee amputation of left lower extremity Cellulitis in diabetic foot COPD (chronic obstructive pulmonary disease) Coronary artery disease COVID-19 vaccine series completed Diabetes Diabetic foot infection Diabetic foot infection Diabetic foot ulcer Diabetic toe ulcer Essential hypertension GERD (gastroesophageal reflux disease) Hyperglycemia due to diabetes mellitus Hypertension Ischemic cardiomyopathy Left against medical advice Left against medical advice Osteomyelitis Osteomyelitis 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 PAD (peripheral artery disease) Surgical History History of esophagogastroduodenoscopy (EGD) History of toe surgery (09/22/21) Status post below-knee amputation of left lower extremity (09/20/22) Family History Family History Mother Hx of CABG Sister CAD (coronary artery disease) Social History Social History Household Members: Family and Children Housing: Apartment Do you presently have visiting nurse or other home services: No Unable to assess alcohol history related to: Refusing to respond Alcohol intake: never Patient Tobacco Use Status: Current everyday Tobacco user Tobacco use type: Cigarette Cigarette Packs Per Day: 0.5 Cigarettes Per Day: 6 Years Smoked: 43 Smoked in Last 30 Days: Yes e-Cigarette/Vaping Use: Currently Using Second Hand Smoke Exposure: Yes Use of substances other than those prescribed or required for medical reasons: No Substance Use Type: Marijuana Advance Directives: Yes Advance Directives on File: Yes Advance Directives Date on File: 09/22/22 Patient : No service: No Current occupational status: disabled Physical Exam Vital Signs: Vital Signs: Last Vital Signs Temp 97.6 F 10/08/22 14:33 Pulse 90 10/08/22 14:33 Resp 13 10/08/22 14:33 BP 145/72 H 10/08/22 14:33 Pulse Ox 100 10/08/22 14:33 O2 Del Method Nasal Cannula 10/08/22 14:33 O2 Flow Rate 2 10/08/22 14:33 Oxygen Flow Rate 2 10/08/22 12:31 BMI result Body Mass Index 26.5 Vital signs have been reviewed as appeared to be correct. Blood pressure normal. Heart rate normal. Respiration rate normal. Temperature normal. Oxygen saturation normal. Appearance: Alert. Oriented X3. No acute distress. Head: Normal external exam. Normocephalic. Atraumatic. No Witt signs noted. No raccoon eyes noted Eyes: PERRLA. EOMI. Conjunctiva and sclera normal. Eyelids normal. ENT: TM's Normal. Pharynx normal. Uvula midline. Moist mucous membranes. No trismus noted. No drooling noted. No muffled voice noted. Neck: Normal inspection. Neck supple. FROM. No adenopathy. Thyroid Normal. No meningeal signs. No neck mass noted. CVS: Normal heart rate and rhythm. Heart sound normal. No murmurs noted. Pulses normal throughout. Respiratory: No respiratory distress. Painless inspiration. Breath sounds normal. No wheezes/rales/rhonchi noted. Chest nontender. No accessory muscle usage noted or decreased air movement noted. Abdomen: Soft and nontender. Bowel sounds normal in all 4 quadrants. No distention noted. No organomegaly noted. No visible injury noted. Back: No CVA tenderness. Full range of motion noted. Skin: Skin warm and dry. Normal skin color. Normal skin turgor. No rashes/lesions/lacerations noted. Extremities: Status post left BKA, right foot cold small 3 x 3 cm area of ulcerative lesion on in a lateral aspect of the foot, nontender, no redness, no discharge. Neuro: Oriented X 3. Cranial nerve exam: II-XII are grossly intact No motor deficit. No sensory deficit. Reflexes normal. Course Course Course Narrative: Patient received oxycodone for her pain now she want to sign against medical advise, elevated blood sugar the patient is not compliant with her home medication, patient was given a long-acting insulin with a concern of hypoglycemia in a few hours, patient now is awake, alert, oriented x3 insisting to leave against medical advice. Patient was instructed to keep fruits or orange juice next to her to take it immediately if she feels symptoms of low blood sugar. Medications Administered Discontinued Medications Generic Name Dose Route Start Last Admin Trade Name Freq PRN Reason Stop Dose Admin Albuterol Sulfate 7.5 mg 10/08/22 13:15 10/08/22 13:46 Albuterol Sulfate (0.083%) 2.5 Mg/3 Ml Vial.Neb INHALE 10/08/22 13:16 7.5 mg ONCE ONE Administration Insulin Glargine 20 unit 10/08/22 13:15 10/08/22 13:43 Insulin Glargine,Hum.Rec.Anlog 100 Unit/Ml 10 Ml Vial SUBCUT 10/08/22 13:16 20 unit ONCE ONE Administration Medical Decision Making Differential Diagnosis Differential Diagnoses: The differential diagnosis associated with the presentation includes (Hyperglycemia, asthma exacerbation, pneumonia.) Lab Data MDM Lab Attestation statement: I reviewed the patient's lab results. 10/08/22 13:24 10/08/22 13:24 Labs: Lab Results 10/08/22 10/08/22 10/08/22 Range/Units 12:35 13:24 13:24 WBC 8.5 (4.8-10.8) X10*3/uL RBC 4.40 (4.20-5.50) X10*6/uL Hgb 8.7 L (12.0-16.0) g/dl Hct 30.1 L (37.0-47.0) % MCV 68.4 L (80.0-98.0) fL MCH 19.8 L (27.0-33.0) pg MCHC 28.9 L (31.0-35.0) g/dl RDW 23.0 H (11.0-16.0) % Plt Count 211 (160-400) X10*3/uL MPV Not Reportable Immature Gran % (Auto) 0.6 H (0.0-0.4) % Neut % (Auto) 88.3 H (45-73) % Lymph % (Auto) 6.5 L (20-40) % [place] % (Auto) 4.6 (2-11) % Eos % (Auto) 0.0 (0-4) % Baso % (Auto) 0.0 (0-2) % Lymph # (Auto) 0.6 L (1.2-4.9) X10*3/uL [place] # (Auto) 0.4 (0.1-1.2) X10*3/uL Eos # (Auto) 0.0 (0.0-0.4) X10*3/uL Baso # (Auto) 0.0 (0.0-0.2) X10*3/uL Abs Immat Gran (auto) 0.05 H (0.00-0.03) X10*3/uL Absolute Neuts (auto) 7.5 (2.0-8.3) x10*3/uL Absolute Nucleated RBC 0.100 H (0.0-0.012) X10*3/uL Nucleated RBC % (auto) 1.2 H (0.0-0.2) /100WBC Sodium 133 L (135-145) mmol/L Potassium 5.2 H D (3.3-5.1) mmol/L Chloride 97 (96-108) mmol/L Carbon Dioxide 23 (22-29) mmol/L Anion Gap 18 (12-20) BUN 41 H (9-16) mg/dL Creatinine 1.28 (0.5-1.4) mg/dL Estim Creat Clear Calc 48.1 Estimated GFR 44 POC Glucose 404 H* (60-115) mg/dL Random Glucose 425 H* (60-115) mg/dL Calcium 9.9 D (8.4-10.2) mg/dL Discharge Plan Discharge Clinical Impression: Asthma, Hyperglycemia Patient Disposition: Left Against Medical Advice Instructions: Diabetic Hyperglycemia (ED) Additional Instructions: Be advised that you received 20 units of long-acting insulin that may drop your sugar few hours from now and that can cause severe low blood sugar and may lead to coma and . Prescriptions: No Action furosemide 40 mg Tablet 40 mg PO BID Qty: 30 0RF albuterol sulfate 2.5 mg /3 mL (0.083 %) solution for nebulization 1 vial inhalation Q6H PRN (Reason: Wheezing) Qty: 90 0RF lisinopril 20 mg tablet 20 mg PO DAILY Qty: 30 0RF gabapentin 300 mg capsule 2 cap PO BID Qty: 120 0RF montelukast 10 mg tablet 1 tab PO BEDTIME Qty: 30 0RF albuterol sulfate [Ventolin HFA] 90 mcg/actuation HFA aerosol inhaler 1 puff INHALATION Q4H PRN (Reason: Wheezing) Qty: 1 0RF Incruse Ellipta 62.5 mcg/actuation blister with device 1 puff PO DAILY Qty: 1 0RF hydrocodone-acetaminophen 5-325 mg tablet 1 tab PO Q6H PRN (Reason: pain) Qty: 20 0RF Rx Instructions: Partial Fill upon patient request. prednisone 20 mg tablet 40 mg PO DAILY Qty: 10 0RF atorvastatin 80 mg Tablet 80 mg PO BEDTIME 30 Days Qty: 30 0RF acetaminophen 325 mg Tablet 650 mg PO Q8H PRN (Reason: Pain, Mild (Pain Scale 1-3)) 30 Days Qty: 90 0RF polyethylene glycol 3350 17 gram Powder In Packet 17 g PO DAILY PRN (Reason: Constipation) 5 Days Qty: 30 0RF aspirin 81 mg Tablet,Delayed Release (Dr/Ec) 81 mg PO DAILY 30 Days Qty: 30 0RF carvedilol 3.125 mg Tablet 3.125 mg PO BID 30 Days Qty: 60 0RF Protocol: Hold for SBP/HR < HOLD for SBP < : 90 HOLD for HR < : 60 gabapentin 100 mg Capsule 200 mg PO BID 10 Days Qty: 40 0RF Brilinta 90 mg Tablet 90 mg PO BID 30 Days Qty: 60 0RF ondansetron 4 mg tablet,disintegrating 4 mg PO Q8H 3 Days Qty: 9 0RF oxycodone 5 mg tablet 5 mg PO Q6H PRN (Reason: pain) Qty: 20 0RF Rx Instructions: Partial Fill upon patient request.
[2022-10-08] MEDS: Insulin Glargine,Hum.rec.anlog 100 UNIT/ML 10 ML VIAL 20 UNIT SUBCUT (13:43)
[2022-10-08 13:46] VITALS: PULSE 77; RESP 18; O2SAT 100
[2022-10-08] MEDS: Albuterol Sulfate (0.083%) 2.5 MG/3 ML VIAL.NEB 7.5 MG INHALE (13:46)
[2022-10-08 14:00] LABS: Anion Gap 18 (12-20); Blood Urea Nitrogen 41 mg/dL (9-16); Calcium 9.9 mg/dL (8.4-10.2); Carbon Dioxide 23 mmol/L (22-29); Chloride 97 mmol/L (96-108); Creatinine Clr Calc Pharmacy 48.1; Estimated Glomerular Filt Rate 44; Glucose Random 425 mg/dL (60-115); Potassium 5.2 mmol/L (3.3-5.1); Sodium 133 mmol/L (135-145)
[2022-10-08 14:33] VITALS: BP 145/72; PULSE 90; RESP 13; TEMP 36.4; O2SAT 100
--- NOTE | 2022-10-08 15:22 | PC.NURSE ---
PT REQUESTING TO LEAVE AMA. VERBALIZED UNDERSTANDINGS OF RISKS HAVING RECENTLY BEEN GIVEN LANTUS SUBQ. SHE IS RETURNING HOME TO BE SEEN BY [facility]. EDUCATED ON SXS HYPOGLYCEMIA. AMA PAPERWORK SIGNED PER FACILITY PROCOTOL. PT ASSISTED TO WHEELCHAIR TO EXIT.
== END 2022-10-08 15:25 | disposition left against medical advice (07) ==
PROVIDERS: Emergency Provider Emergency Medicine
DX: J45.909 Unspecified asthma, uncomplicated (principal); E11.65 Type 2 diabetes mellitus with hyperglycemia; F17.210 Nicotine dependence, cigarettes, uncomplicated; Z79.82 Long term (current) use of aspirin; Z79.02 Long term (current) use of antithrombotics/antiplatelets; Z79.899 Other long term (current) drug therapy
CPT/HCPCS: 36415; 80048; 82947; 85025; 93005; 94640; 99285

== ENCOUNTER 2022-10-14 17:27 | Emergency (ER) | payer OTHER, SELFPAY ==
--- NOTE | ~2022-10-14 | XR_ITS ---
EXAMINATION: XR CHEST CLINICAL INFORMATION: Shortness of breath COMPARISON: Chest x-ray 10/05/2022. CT abdomen and pelvis 09/24/2022 TECHNIQUE: Frontal view of the chest was obtained. FINDINGS: Slight blunting of the right costophrenic angle likely due to right pleural effusion. The small left pleural effusion seen on the CT study of 09/24/2022 not apparent on this exam. The cardiac and mediastinal contours are normal. No pulmonary vascular congestion. There is no focal consolidation. There is no pneumothorax. XR/XR chest 1V IMPRESSION: Slight blunting of the right costophrenic angle likely due to small right pleural effusion. No pulmonary vascular congestion or focal consolidation.
[2022-10-14 17:31] VITALS: BP 143/90; PULSE 97; RESP 19; TEMP 36.1; O2SAT 100; BMI 26.6
--- NOTE | 2022-10-14 17:31 | ED.SOB ---
HPI - SOB/Dyspnea General Chief Complaint: General Medical <MITZI Hair - Last Filed: 10/14/22 17:40> Stated Complaint: difficulty breathing, L leg pain <MITZI Hair - Last Filed: 10/14/22 17:40> Time Seen by Provider: 10/14/22 19:45 <MITZI Hair - Last Filed: 10/14/22 17:40> Source: patient <Gio Plaza MD - Last Filed: 10/14/22 20:48> Mode of arrival: ambulatory <Gio Plaza MD - Last Filed: 10/14/22 20:48> Limitations: no limitations <Gio Plaza MD - Last Filed: 10/14/22 20:48> History of Present Illness HPI Narrative: 52-year-old female presents with difficulty breathing. The symptoms started 3 days ago. She describes symptoms as moderate to severe in nature. There is no clear relieving or exacerbating features. She does have a cough. There is no mucus production. She denies any fevers or chills. She denies any chest pain. She does have a history of blood clots but is currently on blood thinning medications. She does use home nebulizers but they have not been assisting her management. Patient has lower extremity edema on the right leg which had an ultrasound according to her that was negative for blood clot. Patient is apparently postop day 6 for a left BKA <Gio Plaza MD - Last Filed: 10/14/22 20:48> Related Data Home Medications: Previous Rx's Medication Instructions Recorded acetaminophen 325 mg tablet 650 mg PO Q8H PRN Pain, Mild (Pain 09/21/22 Scale 1-3) 30 days #90 tabs aspirin 81 mg tablet,delayed 81 mg PO DAILY 30 days #30 tabs 09/21/22 release atorvastatin 80 mg tablet 80 mg PO BEDTIME 30 days #30 tabs 09/21/22 carvedilol 3.125 mg tablet 3.125 mg PO BID 30 days #60 tabs 09/21/22 gabapentin 100 mg capsule 200 mg PO BID 10 days #40 caps 09/21/22 polyethylene glycol 3350 17 gram 17 g PO DAILY PRN Constipation 5 09/21/22 oral powder packet days #30 ea ticagrelor 90 mg tablet (Brilinta) 90 mg PO BID 30 days #60 tabs 09/21/22 ondansetron 4 mg disintegrating 4 mg PO Q8H 3 days #9 tabs 09/24/22 tablet albuterol sulfate 2.5 mg/3 mL 1 vial inhalation Q6H PRN Wheezing 09/29/22 (0.083 %) solution for nebulization #90 mL albuterol sulfate 90 mcg/actuation 1 puff inhalation Q4H PRN Wheezing 09/29/22 aerosol inhaler (Ventolin HFA) #1 g furosemide 40 mg tablet 40 mg PO BID #30 tabs 09/29/22 gabapentin 300 mg capsule 2 cap PO BID #120 caps 09/29/22 lisinopril 20 mg tablet 20 mg PO DAILY #30 tabs 09/29/22 montelukast 10 mg tablet 1 tab PO BEDTIME #30 tabs 09/29/22 umeclidinium 62.5 mcg/actuation 1 puff PO DAILY #1 ea 09/29/22 blister powder for inhalation (Incruse Ellipta) hydrocodone 5 mg-acetaminophen 325 1 tab PO Q6H PRN pain #20 tabs 10/05/22 mg tablet prednisone 20 mg tablet 40 mg PO DAILY #10 tabs 10/05/22 oxycodone 5 mg tablet 5 mg PO Q6H PRN pain #20 tabs 10/07/22 ipratropium 0.5 mg-albuterol 3 mg 3 ml inhalation TID #90 mL 10/14/22 (2.5 mg base)/3 mL nebulization soln prednisone 20 mg tablet 20 mg PO DAILY #5 tabs 10/14/22 <MITZI Hair - Last Filed: 10/14/22 17:40> Allergies/Adverse Reactions: Allergies Allergy/AdvReac Type Severity Reaction Status Date / Time Penicillins [PENICILLINS] Allergy Severe RASH Verified 10/07/22 09:49 amoxicillin [AMOXICILLIN] Allergy Intermediate HIVES Verified 10/07/22 09:49 codeine Allergy Itching Verified 10/07/22 09:49 perflutren [From Definity] AdvReac Back Pain Verified 10/07/22 09:49 <MITZI Hair - Last Filed: 10/14/22 17:40> [facility] Past Medical History Medical History: Medical History Asthma Atherosclerotic cardiovascular disease Atrial tachycardia Below-knee amputation of left lower extremity Cellulitis in diabetic foot COPD (chronic obstructive pulmonary disease) Coronary artery disease COVID-19 vaccine series completed Diabetes Diabetic foot infection Diabetic foot infection Diabetic foot ulcer Diabetic toe ulcer Essential hypertension GERD (gastroesophageal reflux disease) Hyperglycemia due to diabetes mellitus Hypertension Ischemic cardiomyopathy Left against medical advice Left against medical advice Osteomyelitis Osteomyelitis 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 PAD (peripheral artery disease) <MITZI Hair - Last Filed: 10/14/22 17:40> Surgical History: Surgical History History of esophagogastroduodenoscopy (EGD) History of toe surgery (09/22/21) Status post below-knee amputation of left lower extremity (09/20/22) <MITZI Hair - Last Filed: 10/14/22 17:40> Family History Family History: Family History Mother Hx of CABG Sister CAD (coronary artery disease) <MITZI Hair - Last Filed: 10/14/22 17:40> Social History Social History: Social History Household Members: Family and Children Housing: Apartment Do you presently have visiting nurse or other home services: No Unable to assess alcohol history related to: Refusing to respond Alcohol intake: never Patient Tobacco Use Status: Current everyday Tobacco user Tobacco use type: Cigarette Cigarette Packs Per Day: 0.5 Cigarettes Per Day: 6 Years Smoked: 43 e-Cigarette/Vaping Use: Currently Using Second Hand Smoke Exposure: Yes Substance Use Type: Marijuana Advance Directives: Yes Advance Directives on File: Yes Advance Directives Date on File: 09/22/22 service: No Current occupational status: disabled <MITZI Hair - Last Filed: 10/14/22 17:40> Physical Exam Vital Signs: Vital Signs: Last Vital Signs Temp 98.0 F 10/14/22 19:38 Pulse 96 10/14/22 19:38 Resp 16 10/14/22 19:38 BP 146/93 H 10/14/22 19:38 Pulse Ox 100 10/14/22 19:38 O2 Del Method Room Air 10/14/22 19:38 BMI result Body Mass Index 26.6 <MITZI Hair - Last Filed: 10/14/22 17:40> Vital Signs: Last Vital Signs Temp 98.0 F 10/14/22 19:38 Pulse 96 10/14/22 19:38 Resp 16 10/14/22 19:38 BP 146/93 H 10/14/22 19:38 Pulse Ox 100 10/14/22 19:38 O2 Del Method Room Air 10/14/22 19:38 BMI result Body Mass Index 26.6 <Gio Plaza MD - Last Filed: 10/14/22 20:48> GEN: Well developed, no acute distress, alert, oriented HEENT: Normocephalic, atraumatic, normal external ears, nose appears normal, no oropharyngeal edema or exudates Eyes: Normal to appearance Neck: Supple, no lymphadenopathy Respiratory: Talks in complete sentences, no respiratory distress, right-sided crackles Cardiovascular: Regular rate and rhythm, no murmurs rubs or gallops Abdomen: Soft, nontender, nondistended, no guarding, no rebound Back: No CVA tenderness Extremities: Left BKA, right 2+ pitting edema Neurologic: No focal neurologic deficits, cranial nerves 2-12 intact, strength is 5/5 bilaterally Skin: No rash <Gio Plaza MD - Last Filed: 10/14/22 20:48> Course Course Course Narrative: RME - 52 yo female with complex medical history including CHF, DM 2, asthma/COPD, osteomyelitis s/p left BKA on 09/20 who presents to the ER for evaluation of 10/10 left stump pain that started today. She has a visiting nurse that comes in and changes the dressing every 2 days. She denies any drainage or discharge from the wound. She has not taken any medication for the pain yet today. She also reports some increased SOB for the last 3 days. She went to [facility] and was treated with a course of steroids, last dose yesterday. She states she was diagnosed with blood clots in her lungs and she was started on blood thinners. She is a poor historian. She has expiratory wheezes on exam. Spo2 100%, speaking in complete sentences. Plan: lab workup, CXR, wound evaluation, neb once in treatment room. <MITZI Hair - Last Filed: 10/14/22 17:40> Reevaluation(s) Reevaluation #1: The patient's workup is complete. Chest x-ray shows small pleural effusion but no rachid CHF. She does have a significantly elevated proBNP which has been now white in the past. Slightly more so than usual. She has a get elevated troponin which is trending downward and is also quite the elevated. She does have right-sided crackles on exam but no infiltrate on chest x-ray. No rachid CHF on chest x-ray. She has no white count or left shift. Doubt pneumonia. Her oxygen saturation on room air is 100%. Doubt PE that has broken through chronic anticoagulation. Patient does have a history of chronic pulmonary disease. Patient would likely benefit for steroids, oral and inhaled. I would also recommend DuoNeb 3 times daily and albuterol as needed. For progressive symptoms, patient can follow up in the emergency department. I will make the patient aware that on steroids, her blood sugars could certainly elevate. She should follow-up with her primary care provider on Monday or Monday at the latest. <Gio Plaza MD - Last Filed: 10/14/22 20:48> Time: 20:24 <Gio Plaza MD - Last Filed: 10/14/22 20:48> Medical Decision Making Medical Decision Making MDM Narrative: 52-year-old female presents with shortness of breath. She has a history of CHF. Her last echocardiogram on file is September of 2022. Showed an ejection of 10-15%. Differential diagnosis could include CHF, pneumonia, bronchitis, doubt PE given chronic anticoagulation, normal oxygen saturation, deconditioning. Will order chest x-ray, EKG, laboratory analysis. Would consider Lasix for congestive heart failure, antibiotics for pneumonia, steroids and advancing nebulizer treatments for asthma/COPD. <Gio Plaza MD - Last Filed: 10/14/22 20:48> Differential Diagnosis Differential Diagnoses: The differential diagnosis associated with the presentation includes (See above) <Gio Plaza MD - Last Filed: 10/14/22 20:48> Admission/Observation Consideration of admission/observation: Escalation of care including admission/observation considered <Gio Plaza MD - Last Filed: 10/14/22 20:48> Lab Data MDM Lab Attestation statement: I reviewed the patient's lab results. <Gio Plaza MD - Last Filed: 10/14/22 20:48> Result Diagrams: 10/14/22 18:02 10/14/22 18:02 <MITZI Hair - Last Filed: 10/14/22 17:40> Labs: Lab Results 10/14/22 10/14/22 10/14/22 Range/Units 18:02 18:02 18:02 WBC 5.7 (4.8-10.8) X10*3/uL RBC 4.49 (4.20-5.50) X10*6/uL Hgb 9.1 L (12.0-16.0) g/dl Hct 32.0 L (37.0-47.0) % MCV 71.3 L (80.0-98.0) fL MCH 20.3 L (27.0-33.0) pg MCHC 28.4 L (31.0-35.0) g/dl RDW 25.2 H (11.0-16.0) % Plt Count 152 L D (160-400) X10*3/uL MPV TNP Immature Gran % (Auto) 0.4 (0.0-0.4) % Neut % (Auto) 68.9 (45-73) % Lymph % (Auto) 22.8 (20-40) % Bradford % (Auto) 6.2 (2-11) % Eos % (Auto) 1.2 (0-4) % Baso % (Auto) 0.5 (0-2) % Lymph # (Auto) 1.3 (1.2-4.9) X10*3/uL Bradford # (Auto) 0.4 (0.1-1.2) X10*3/uL Eos # (Auto) 0.1 (0.0-0.4) X10*3/uL Baso # (Auto) 0.0 (0.0-0.2) X10*3/uL Abs Immat Gran (auto) 0.02 (0.00-0.03) X10*3/uL Absolute Neuts (auto) 3.9 (2.0-8.3) x10*3/uL Absolute Nucleated RBC 0.000 (0.0-0.012) X10*3/uL Nucleated RBC % (auto) 0.0 (0.0-0.2) /100WBC Smear Tech's Comments VERIFIED Sodium 141 (135-145) mmol/L Potassium 4.4 (3.3-5.1) mmol/L Chloride 102 (96-108) mmol/L Carbon Dioxide 28 (22-29) mmol/L Anion Gap 15 (12-20) BUN 18 H (9-16) mg/dL Creatinine 0.75 (0.5-1.4) mg/dL Estim Creat Clear Calc 82.1 Estimated GFR > 60 Random Glucose 164 H (60-115) mg/dL Calcium 8.9 D (8.4-10.2) mg/dL Magnesium 1.9 (1.6-2.6) mg/dL Total Bilirubin 2.1 H (0.0-1.0) mg/dL Direct Bilirubin 0.7 H (0.0-0.5) mg/dL AST 17 (5-31) U/L ALT 24 (0-31) U/L Alkaline Phosphatase 114 (39-117) U/L Troponin I High Sens 36.8 H (<3.5-17.0) ng/L B-Natriuretic Peptide (<100) pg/mL Total Protein 6.1 L (6.5-8.0) g/dL Albumin 3.4 L (3.5-5.0) g/dL /11/01 Range/Units 18:02 WBC (4.8-10.8) X10*3/uL RBC (4.20-5.50) X10*6/uL Hgb (12.0-16.0) g/dl Hct (37.0-47.0) % MCV (80.0-98.0) fL MCH (27.0-33.0) pg MCHC (31.0-35.0) g/dl RDW (11.0-16.0) % Plt Count (160-400) X10*3/uL MPV Immature Gran % (Auto) (0.0-0.4) % Neut % (Auto) (45-73) % Lymph % (Auto) (20-40) % Bradford % (Auto) (2-11) % Eos % (Auto) (0-4) % Baso % (Auto) (0-2) % Lymph # (Auto) (1.2-4.9) X10*3/uL Bradford # (Auto) (0.1-1.2) X10*3/uL Eos # (Auto) (0.0-0.4) X10*3/uL Baso # (Auto) (0.0-0.2) X10*3/uL Abs Immat Gran (auto) (0.00-0.03) X10*3/uL Absolute Neuts (auto) (2.0-8.3) x10*3/uL Absolute Nucleated RBC (0.0-0.012) X10*3/uL Nucleated RBC % (auto) (0.0-0.2) /100WBC Smear Tech's Comments Sodium (135-145) mmol/L Potassium (3.3-5.1) mmol/L Chloride (96-108) mmol/L Carbon Dioxide (22-29) mmol/L Anion Gap (12-20) BUN (9-16) mg/dL Creatinine (0.5-1.4) mg/dL Estim Creat Clear Calc Estimated GFR Random Glucose (60-115) mg/dL Calcium (8.4-10.2) mg/dL Magnesium (1.6-2.6) mg/dL Total Bilirubin (0.0-1.0) mg/dL Direct Bilirubin (0.0-0.5) mg/dL AST (5-31) U/L ALT (0-31) U/L Alkaline Phosphatase (39-117) U/L Troponin I High Sens (<3.5-17.0) ng/L B-Natriuretic Peptide 4116 H (<100) pg/mL Total Protein (6.5-8.0) g/dL Albumin (3.5-5.0) g/dL <MITZI Hair - Last Filed: 10/14/22 17:40> Lab Results 10/14/22 10/14/22 10/14/22 Range/Units 18:02 18:02 18:02 WBC 5.7 (4.8-10.8) X10*3/uL RBC 4.49 (4.20-5.50) X10*6/uL Hgb 9.1 L (12.0-16.0) g/dl Hct 32.0 L (37.0-47.0) % MCV 71.3 L (80.0-98.0) fL MCH 20.3 L (27.0-33.0) pg MCHC 28.4 L (31.0-35.0) g/dl RDW 25.2 H (11.0-16.0) % Plt Count 152 L D (160-400) X10*3/uL MPV TNP Immature Gran % (Auto) 0.4 (0.0-0.4) % Neut % (Auto) 68.9 (45-73) % Lymph % (Auto) 22.8 (20-40) % Bradford % (Auto) 6.2 (2-11) % Eos % (Auto) 1.2 (0-4) % Baso % (Auto) 0.5 (0-2) % Lymph # (Auto) 1.3 (1.2-4.9) X10*3/uL Bradford # (Auto) 0.4 (0.1-1.2) X10*3/uL Eos # (Auto) 0.1 (0.0-0.4) X10*3/uL Baso # (Auto) 0.0 (0.0-0.2) X10*3/uL Abs Immat Gran (auto) 0.02 (0.00-0.03) X10*3/uL Absolute Neuts (auto) 3.9 (2.0-8.3) x10*3/uL Absolute Nucleated RBC 0.000 (0.0-0.012) X10*3/uL Nucleated RBC % (auto) 0.0 (0.0-0.2) /100WBC Smear Tech's Comments VERIFIED Sodium 141 (135-145) mmol/L Potassium 4.4 (3.3-5.1) mmol/L Chloride 102 (96-108) mmol/L Carbon Dioxide 28 (22-29) mmol/L Anion Gap 15 (12-20) BUN 18 H (9-16) mg/dL Creatinine 0.75 (0.5-1.4) mg/dL Estim Creat Clear Calc 82.1 Estimated GFR > 60 Random Glucose 164 H (60-115) mg/dL Calcium 8.9 D (8.4-10.2) mg/dL Magnesium 1.9 (1.6-2.6) mg/dL Total Bilirubin 2.1 H (0.0-1.0) mg/dL Direct Bilirubin 0.7 H (0.0-0.5) mg/dL AST 17 (5-31) U/L ALT 24 (0-31) U/L Alkaline Phosphatase 114 (39-117) U/L Troponin I High Sens 36.8 H (<3.5-17.0) ng/L B-Natriuretic Peptide (<100) pg/mL Total Protein 6.1 L (6.5-8.0) g/dL Albumin 3.4 L (3.5-5.0) g/dL /11/01 Range/Units 18:02 WBC (4.8-10.8) X10*3/uL RBC (4.20-5.50) X10*6/uL Hgb (12.0-16.0) g/dl Hct (37.0-47.0) % MCV (80.0-98.0) fL MCH (27.0-33.0) pg MCHC (31.0-35.0) g/dl RDW (11.0-16.0) % Plt Count (160-400) X10*3/uL MPV Immature Gran % (Auto) (0.0-0.4) % Neut % (Auto) (45-73) % Lymph % (Auto) (20-40) % Bradford % (Auto) (2-11) % Eos % (Auto) (0-4) % Baso % (Auto) (0-2) % Lymph # (Auto) (1.2-4.9) X10*3/uL Bradford # (Auto) (0.1-1.2) X10*3/uL Eos # (Auto) (0.0-0.4) X10*3/uL Baso # (Auto) (0.0-0.2) X10*3/uL Abs Immat Gran (auto) (0.00-0.03) X10*3/uL Absolute Neuts (auto) (2.0-8.3) x10*3/uL Absolute Nucleated RBC (0.0-0.012) X10*3/uL Nucleated RBC % (auto) (0.0-0.2) /100WBC Smear Tech's Comments Sodium (135-145) mmol/L Potassium (3.3-5.1) mmol/L Chloride (96-108) mmol/L Carbon Dioxide (22-29) mmol/L Anion Gap (12-20) BUN (9-16) mg/dL Creatinine (0.5-1.4) mg/dL Estim Creat Clear Calc Estimated GFR Random Glucose (60-115) mg/dL Calcium (8.4-10.2) mg/dL Magnesium (1.6-2.6) mg/dL Total Bilirubin (0.0-1.0) mg/dL Direct Bilirubin (0.0-0.5) mg/dL AST (5-31) U/L ALT (0-31) U/L Alkaline Phosphatase (39-117) U/L Troponin I High Sens (<3.5-17.0) ng/L B-Natriuretic Peptide 4116 H (<100) pg/mL Total Protein (6.5-8.0) g/dL Albumin (3.5-5.0) g/dL <Gio Plaza MD - Last Filed: 10/14/22 20:48> Independent Interpretation I performed an independent interpretation of an: EKG (Normal sinus rhythm, heart rate 95, low voltage in multiple leads, likely incomplete left bundle-branch block however difficult to interpret, ST elevations noted in the precordial leads, previously seen on October 08, 2022.) and Plain X-Ray (Chest: Small pleural effusion, no rachid CHF or acute infiltrate) <iGo Plaza MD - Last Filed: 10/14/22 20:48> Radiology Impression Discussion of test interpretation with radiology: I have reviewed the radiologist's reading. ( XR/XR chest 1V IMPRESSION: Slight blunting of the right costophrenic angle likely due to small right pleural effusion. No pulmonary vascular congestion or focal consolidation. Dictated By:Xavier William MDSigned By:<Electronically signed by Xavier William MD in [place]>10/14/22 [id number]) <Gio Plaza MD - Last Filed: 10/14/22 20:48> Independent Historian Clinical information obtained from an independent historian. History obtained from or confirmed by: Spouse <Gio Plaza MD - Last Filed: 10/14/22 20:48> External Record Review External record reviewed: Inpatient record and Office record <Gio Plaza MD - Last Filed: 10/14/22 20:48> Prescription Management I considered prescription management with: Pain Medication and Antibiotic <Gio Plaza MD - Last Filed: 10/14/22 20:48> Chronic Conditions Patient?s care impacted by: Diabetes <Gio Plaza MD - Last Filed: 10/14/22 20:48> Discharge Plan Discharge Clinical Impression: Acute dyspnea, Below-knee amputation of left lower extremity, Elevated troponin, Elevated brain natriuretic peptide (BNP) level <MITZI Hair - Last Filed: 10/14/22 17:40> Patient Disposition: Home, Self-Care <MITZI Hair - Last Filed: 10/14/22 17:40> Instructions: Dyspnea (ED) <MITZI Hair - Last Filed: 10/14/22 17:40> Additional Instructions: start prednisone 20 mg daily for 5 days use ipratropium-albuterol solution three times daily for 3-5 days. use albuterol solution 3 times per day as needed. Otherwise continue your usual medications. <MITZI Hair - Last Filed: 10/14/22 17:40> Prescriptions: New ipratropium-albuterol 0.5 mg-3 mg(2.5 mg base)/3 mL solution for nebulization 3 ml inhalation TID Qty: 90 0RF prednisone 20 mg tablet 20 mg PO DAILY Qty: 5 0RF No Action furosemide 40 mg Tablet 40 mg PO BID Qty: 30 0RF albuterol sulfate 2.5 mg /3 mL (0.083 %) solution for nebulization 1 vial inhalation Q6H PRN (Reason: Wheezing) Qty: 90 0RF lisinopril 20 mg tablet 20 mg PO DAILY Qty: 30 0RF gabapentin 300 mg capsule 2 cap PO BID Qty: 120 0RF montelukast 10 mg tablet 1 tab PO BEDTIME Qty: 30 0RF albuterol sulfate [Ventolin HFA] 90 mcg/actuation HFA aerosol inhaler 1 puff INHALATION Q4H PRN (Reason: Wheezing) Qty: 1 0RF Incruse Ellipta 62.5 mcg/actuation blister with device 1 puff PO DAILY Qty: 1 0RF hydrocodone-acetaminophen 5-325 mg tablet 1 tab PO Q6H PRN (Reason: pain) Qty: 20 0RF Rx Instructions: Partial Fill upon patient request. prednisone 20 mg tablet 40 mg PO DAILY Qty: 10 0RF atorvastatin 80 mg Tablet 80 mg PO BEDTIME 30 Days Qty: 30 0RF acetaminophen 325 mg Tablet 650 mg PO Q8H PRN (Reason: Pain, Mild (Pain Scale 1-3)) 30 Days Qty: 90 0RF polyethylene glycol 3350 17 gram Powder In Packet 17 g PO DAILY PRN (Reason: Constipation) 5 Days Qty: 30 0RF aspirin 81 mg Tablet,Delayed Release (Dr/Ec) 81 mg PO DAILY 30 Days Qty: 30 0RF carvedilol 3.125 mg Tablet 3.125 mg PO BID 30 Days Qty: 60 0RF Protocol: Hold for SBP/HR < HOLD for SBP < : 90 HOLD for HR < : 60 gabapentin 100 mg Capsule 200 mg PO BID 10 Days Qty: 40 0RF Brilinta 90 mg Tablet 90 mg PO BID 30 Days Qty: 60 0RF ondansetron 4 mg tablet,disintegrating 4 mg PO Q8H 3 Days Qty: 9 0RF oxycodone 5 mg tablet 5 mg PO Q6H PRN (Reason: pain) Qty: 20 0RF Rx Instructions: Partial Fill upon patient request. <MITZI Hair - Last Filed: 10/14/22 17:40> Referrals: Physician,Unknown J [Primary Care Provider] - 3 days <MITZI Hair - Last Filed: 10/14/22 17:40>
--- NOTE | 2022-10-14 17:38 | ECG_ITS ---
Test Reason : sob Blood Pressure : / mmHG Vent. Rate : 095 BPM Atrial Rate : 095 BPM P-R Int : 158 ms QRS Dur : 086 ms QT Int : 378 ms P-R-T Axes : 082 085 111 degrees QTc Int : 475 ms Normal sinus rhythm Low voltage QRS Cannot rule out Anterior infarct (cited on or before 13-JUN-2022) Abnormal ECG When compared with ECG of 08-OCT-2022 12:40, Questionable change in initial forces of Anterior leads Non-specific change in ST segment in Lateral leads Referred By: Megan Summers Electronically Signed By:LUANN SALAZAR MD
[2022-10-14 18:27] LABS: Alanine Aminotransferase 24 U/L (0-31); Albumin Level 3.4 g/dL (3.5-5.0); Alkaline Phosphatase 114 U/L (39-117); Anion Gap 15 (12-20); Aspartate Amino Transferase 17 U/L (5-31); Bilirubin Direct 0.7 mg/dL (0.0-0.5); Bilirubin Total 2.1 mg/dL (0.0-1.0); Blood Urea Nitrogen 18 mg/dL (9-16); Calcium 8.9 mg/dL (8.4-10.2); Carbon Dioxide 28 mmol/L (22-29); Chloride 102 mmol/L (96-108); Creatinine Clr Calc Pharmacy 82.1; Estimated Glomerular Filt Rate > 60; Glucose Random 164 mg/dL (60-115); Magnesium 1.9 mg/dL (1.6-2.6); Potassium 4.4 mmol/L (3.3-5.1); Sodium 141 mmol/L (135-145); Total Protein 6.1 g/dL (6.5-8.0)
[2022-10-14 18:29] LABS: B Type Natriuretic Peptide 4116 pg/mL (<100)
[2022-10-14 18:30] LABS: Troponin-I High Sensitivity 36.8 ng/L (<3.5-17.0)
[2022-10-14 18:43] LABS: Basophils Percent Auto 0.5 % (0-2); Eosinophils Absolute Auto 0.1 X10*3/uL (0.0-0.4); Eosinophils Percent Auto 1.2 % (0-4); Hemoglobin 9.1 g/dl (12.0-16.0); Imm Gran Abs Auto 0.02 X10*3/uL (0.00-0.03); Imm Gran Pct Auto 0.4 % (0.0-0.4); Lymphocytes Absolute Auto 1.3 X10*3/uL (1.2-4.9); Lymphocytes Percent Auto 22.8 % (20-40); MANUAL DIFF FLAG SCAN; Mean Corpuscular HGB Conc 28.4 g/dl (31.0-35.0); Mean Corpuscular Hemoglobin 20.3 pg (27.0-33.0); Mean Corpuscular Volume 71.3 fL (80.0-98.0); Monocytes Absolute Auto 0.4 X10*3/uL (0.1-1.2); Monocytes Percent Auto 6.2 % (2-11); Neutrophils Absolute Auto 3.9 x10*3/uL (2.0-8.3); Neutrophils Percent Auto 68.9 % (45-73); PLT CLUMP 1; Red Blood Count 4.49 X10*6/uL (4.20-5.50); Red Cell Distribution Width 25.2 % (11.0-16.0); SCAN SMEAR FLAG 1
[2022-10-14 18:44] LABS: Platelet Count 152 X10*3/uL (160-400); SLIDE REVIEW VERIFIED; White Blood Count 5.7 X10*3/uL (4.8-10.8)
[2022-10-14 19:38] VITALS: BP 146/93; PULSE 96; RESP 16; TEMP 36.7; O2SAT 100
--- NOTE | 2022-10-14 20:22 | PC.NURSE ---
this rn assumed care of pt from waiting room @ 1935. pt placed on environmental monitoring technician. pt partner at bedside. resting on stretcher at this time
[2022-10-14] MEDS: predniSONE 20 MG TABLET PO (20:51)
[2022-10-14 20:58] VITALS: BP 125/78; PULSE 97; RESP 20; TEMP 36.5; O2SAT 100
--- NOTE | 2022-10-14 20:59 | PC.NURSE ---
vss. pt in wheelchair at discharge. pt medicated according to mar. pt partner at bedside. pt provided with discharge packet. pt verbalized understanding of discharge plan
== END 2022-10-14 21:01 | disposition home or self-care (01) ==
PROVIDERS: Physician Assistant; Emergency Provider Emergency Medicine
DX: R06.02 Shortness of breath (principal); R05.9 Cough, unspecified; R79.89 Other specified abnormal findings of blood chemistry; Z79.899 Other long term (current) drug therapy; F17.210 Nicotine dependence, cigarettes, uncomplicated; Z71.6 Tobacco abuse counseling
CPT/HCPCS: 36415; 71045; 80048; 80076; 83735; 83880; 84484; 85025; 93005; 99283; 99284

== ENCOUNTER 2022-10-14 23:54 | Emergency (ER) | payer OTHER, SELFPAY ==
--- NOTE | ~2022-10-14 | XR_ITS ---
EXAMINATION: XR CHEST CLINICAL INFORMATION: Worsening shortness of breath COMPARISON: 10/14/2022 TECHNIQUE: Frontal view of the chest was obtained. FINDINGS: Lung volumes are symmetric. No focal consolidation is seen. No evidence of pneumothorax or significant pleural effusion. No overt pulmonary edema. Cardiac silhouette remains borderline enlarged. No acute osseous findings are seen. XR/XR chest 1V IMPRESSION: No acute pulmonary findings. Borderline enlarged cardiac silhouette.
--- NOTE | ~2022-10-14 | CT_ITS ---
EXAMINATION: CT ABDOMEN AND PELVIS WITH CONTRAST CLINICAL INFORMATION: Severe generalized pain COMPARISON: 09/24/2022 TECHNIQUE: Multidetector volumetric images were obtained from the superior aspect of the liver through the pubic symphysis following administration 85 mL of Omnipaque 350 intravenous contrast. Sagittal and coronal reformatted images were obtained on the technologist's workstation. Oral contrast: No This CT examination was performed using dose optimization techniques as appropriate, variously including the following: *Automated exposure control *Adjustment of mA and/or kV according to patient size (this includes techniques or standardized protocols for targeted exams where dose is matched to indication/reason for exam; i.e. extremities or head) *Use of iterative reconstruction technique DLP: 502 mGy-cm FINDINGS: LUNG BASES: Small pleural effusions, right greater than left and similar to prior. Interval increase in the nodular foci with some surrounding groundglass opacity in the bilateral lung bases compared to prior. LIVER, GALLBLADDER, AND BILIARY TREE: The liver is normal in size, shape, and attenuation. Mild periportal edema noted. No focal hepatic lesion or significant biliary ductal dilatation is present. Gallbladder appears partially contracted. PANCREAS: Unremarkable. SPLEEN: Enlarged, measuring approximately 19 cm in craniocaudal dimension. ADRENAL GLANDS: Redemonstrated small left adrenal nodule previously characterized as an adenoma. No further follow-up is recommended. Right adrenal gland is unremarkable. KIDNEYS AND URETERS: Bilateral nephrograms are symmetric. No hydronephrosis or obstructing calculus identified. BLADDER: Mildly distended with associated mural prominence. GASTROINTESTINAL TRACT: No evidence of bowel obstruction. No significant bowel wall thickening is seen. Moderate amount of stool is present. The appendix is unremarkable. Small amount of free fluid is present in the abdomen and pelvis. ABDOMINAL WALL: Diffuse anasarca redemonstrated. LYMPH NODES: No significant adenopathy is seen. Scattered subcentimeter retroperitoneal lymph nodes noted. VASCULAR: There is atherosclerotic calcification along the aorta and iliac arteries. PELVIC VISCERA: Unremarkable. OSSEOUS STRUCTURES: Unremarkable. CT/CT abdomen pelvis w IV con IMPRESSION: 1. Small amount of free fluid in the abdomen and pelvis. Diffuse anasarca redemonstrated. 2. Interval increase in size of nodular foci in the bilateral lung bases compared to 09/24/2022. Given the short-term interval change, this is suggestive of an infectious/inflammatory etiology. Follow-up dedicated chest imaging would be helpful to assess for resolution. 3. Redemonstrated small pleural effusions. 4. Splenomegaly. 5. Mildly distended urinary bladder with associated mural prominence. Correlation with urinalysis is recommended to exclude cystitis.
[2022-10-15 00:02] VITALS: BP 123/72; BP 150/75; PULSE 67; PULSE 93; RESP 16; O2SAT 96; O2SAT 99; BMI 26.6
--- NOTE | 2022-10-15 00:09 | ECG_ITS ---
Test Reason : SOB/ABD PAIN Blood Pressure : / mmHG Vent. Rate : 099 BPM Atrial Rate : 099 BPM P-R Int : 140 ms QRS Dur : 082 ms QT Int : 378 ms P-R-T Axes : 073 086 111 degrees QTc Int : 485 ms Normal sinus rhythm Possible Left atrial enlargement Low voltage QRS Possible Anterolateral infarct (cited on or before 13-JUN-2022) Abnormal ECG When compared with ECG of 14-OCT-2022 17:50, No significant change was found Referred By: Gio Plaza Electronically Signed By:LUANN SALAZAR MD
--- NOTE | 2022-10-15 00:10 | ED_ITS ---
HPI - Abdominal Pain General Chief Complaint: Abdominal Pain <Gio Plaza MD - Last Filed: 10/15/22 01:38> Stated Complaint: trouble breathing, abdominal pain, headache <Gio Plaza MD - Last Filed: 10/15/22 01:38> Time Seen by Provider: 10/15/22 00:04 <Gio Plaza MD - Last Filed: 10/15/22 01:38> Source: patient <Gio Plaza MD - Last Filed: 10/15/22 01:38> Mode of arrival: ambulatory <Gio Plaza MD - Last Filed: 10/15/22 01:38> Limitations: no limitations <Gio Plaza MD - Last Filed: 10/15/22 01:38> History of Present Illness HPI narrative: 52-year-old female presents for the 2nd time in less than 12 hours now with abdominal pain. Patient was previously seen for shortness of breath. During her evaluation, she had no abdominal pain. She was complaining of shortness of breath with no chest pain. Her chest x-ray revealed a small right pleural effusion but no rachid CHF or pulmonary infiltrates. Her lab work at that time was stable including chronically elevated proBNP, chronically elevated troponin which was downward trending. Since her discharge, she developed severe abdominal pain. The pain was 10/10. The pain is constant. There is no relieving or exacerbating features. Associated with nausea vomiting x1. She denies any fevers or chills. She denies any diarrhea constipation. Patient still complains of shortness of breath which is not significantly worse than previous. <Gio Plaza MD - Last Filed: 10/15/22 01:38> Related Data Home Medications: Previous Rx's Medication Instructions Recorded acetaminophen 325 mg tablet 650 mg PO Q8H PRN Pain, Mild (Pain 09/21/22 Scale 1-3) 30 days #90 tabs aspirin 81 mg tablet,delayed 81 mg PO DAILY 30 days #30 tabs 09/21/22 release atorvastatin 80 mg tablet 80 mg PO BEDTIME 30 days #30 tabs 09/21/22 carvedilol 3.125 mg tablet 3.125 mg PO BID 30 days #60 tabs 09/21/22 gabapentin 100 mg capsule 200 mg PO BID 10 days #40 caps 09/21/22 polyethylene glycol 3350 17 gram 17 g PO DAILY PRN Constipation 5 09/21/22 oral powder packet days #30 ea ticagrelor 90 mg tablet (Brilinta) 90 mg PO BID 30 days #60 tabs 09/21/22 ondansetron 4 mg disintegrating 4 mg PO Q8H 3 days #9 tabs 09/24/22 tablet albuterol sulfate 2.5 mg/3 mL 1 vial inhalation Q6H PRN Wheezing 09/29/22 (0.083 %) solution for nebulization #90 mL albuterol sulfate 90 mcg/actuation 1 puff inhalation Q4H PRN Wheezing 09/29/22 aerosol inhaler (Ventolin HFA) #1 g furosemide 40 mg tablet 40 mg PO BID #30 tabs 09/29/22 gabapentin 300 mg capsule 2 cap PO BID #120 caps 09/29/22 lisinopril 20 mg tablet 20 mg PO DAILY #30 tabs 09/29/22 montelukast 10 mg tablet 1 tab PO BEDTIME #30 tabs 09/29/22 umeclidinium 62.5 mcg/actuation 1 puff PO DAILY #1 ea 09/29/22 blister powder for inhalation (Incruse Ellipta) hydrocodone 5 mg-acetaminophen 325 1 tab PO Q6H PRN pain #20 tabs 10/05/22 mg tablet prednisone 20 mg tablet 40 mg PO DAILY #10 tabs 10/05/22 oxycodone 5 mg tablet 5 mg PO Q6H PRN pain #20 tabs 10/07/22 ipratropium 0.5 mg-albuterol 3 mg 3 ml inhalation TID #90 mL 10/14/22 (2.5 mg base)/3 mL nebulization soln prednisone 20 mg tablet 20 mg PO DAILY #5 tabs 10/14/22 <Gio Plaza MD - Last Filed: 10/15/22 01:38> Allergies/Adverse Reactions: Allergies Allergy/AdvReac Type Severity Reaction Status Date / Time Penicillins [PENICILLINS] Allergy Severe RASH Verified 10/07/22 09:49 amoxicillin [AMOXICILLIN] Allergy Intermediate HIVES Verified 10/07/22 09:49 codeine Allergy Itching Verified 10/07/22 09:49 perflutren [From Definity] AdvReac Back Pain Verified 10/07/22 09:49 <Gio Plaza MD - Last Filed: 10/15/22 01:38> [facility] Past Medical History Medical History: Medical History Asthma Atherosclerotic cardiovascular disease Atrial tachycardia Below-knee amputation of left lower extremity Cellulitis in diabetic foot COPD (chronic obstructive pulmonary disease) Coronary artery disease COVID-19 vaccine series completed Diabetes Diabetic foot infection Diabetic foot infection Diabetic foot ulcer Diabetic toe ulcer Essential hypertension GERD (gastroesophageal reflux disease) Hyperglycemia due to diabetes mellitus Hypertension Ischemic cardiomyopathy Left against medical advice Left against medical advice Osteomyelitis Osteomyelitis 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 PAD (peripheral artery disease) <Gio Plaza MD - Last Filed: 10/15/22 01:38> Surgical History: Surgical History History of esophagogastroduodenoscopy (EGD) History of toe surgery (09/22/21) Status post below-knee amputation of left lower extremity (09/20/22) <Gio Plaza MD - Last Filed: 10/15/22 01:38> Family History Family History: Family History Mother Hx of CABG Sister CAD (coronary artery disease) <Gio Plaza MD - Last Filed: 10/15/22 01:38> Social History Social History: Social History Household Members: Family and Children Housing: Apartment Do you presently have visiting nurse or other home services: No Unable to assess alcohol history related to: Refusing to respond Alcohol intake: never Patient Tobacco Use Status: Current everyday Tobacco user Tobacco use type: Cigarette Cigarette Packs Per Day: 0.5 Cigarettes Per Day: 6 Years Smoked: 43 Smoked in Last 30 Days: No e-Cigarette/Vaping Use: Currently Using Second Hand Smoke Exposure: Yes Use of substances other than those prescribed or required for medical reasons: No Substance Use Type: Marijuana Advance Directives: Yes Advance Directives on File: Yes Advance Directives Date on File: 09/22/22 Patient : No service: No Current occupational status: disabled <Gio Plaza MD - Last Filed: 10/15/22 01:38> Physical Exam ED Vital Signs: Vital Signs - 24 hr 10/15/22 00:02 10/15/22 03:44 Temperature 98.3 F Pulse Rate 93 87 Respiratory Rate 16 16 Blood Pressure 123/72 122/80 Pulse Oximetry 96 97 Oxygen Delivery Method Room Air Room Air BMI result Body Mass Index 26.6 GEN: Well developed, + acute distress, alert, oriented HEENT: Normocephalic, atraumatic, normal external ears, nose appears normal, no oropharyngeal edema or exudates Eyes: Normal to appearance Neck: Supple, no lymphadenopathy Respiratory: Talks in complete sentences, no respiratory distress, clear to auscultation bilaterally Cardiovascular: Regular rate and rhythm, no murmurs rubs or gallops Abdomen: Soft, diffusely tender with guarding but no rebound Back: No CVA tenderness Extremities: 2+ pitting edema of the right lower extremity, right [id number] amputation Neurologic: No focal neurologic deficits, cranial nerves 2-12 intact, strength is 5/5 bilaterally Skin: No rash <Gio Plaza MD - Last Filed: 10/15/22 01:38> Vital Signs - 24 hr 10/15/22 00:02 10/15/22 03:44 Temperature 98.3 F Pulse Rate 93 87 Respiratory Rate 16 16 Blood Pressure 123/72 122/80 Pulse Oximetry 96 97 Oxygen Delivery Method Room Air Room Air BMI result Body Mass Index 26.6 <Raphael Sneed MD - Last Filed: 10/15/22 05:54> Course Course Course Narrative: 52-year-old female with multiple medical problems including CHF, diabetes, hypertension, pulmonary disease presents now with abdominal pain. Patient describes her pain as a 10/10. The pain is constant. Her abdominal exam r eveals tenderness with guarding but no rebound. At this time I will provide the patient with analgesia, antiemetics. Will hold off on IV fluids given her history of CHF I will also obtain a CT scan of the abdomen and pelvis to rule out acute abdominal process. <Gio Plaza MD - Last Filed: 10/15/22 01:38> Reevaluation(s) Reevaluation #1: Patient resting comfortably, awaiting UA. Will place in physician obs given 2nd visit, reevaluate for disposition pending clinical improvment. <Gio Plaza MD - Last Filed: 10/15/22 01:38> Time: 01:38 <Gio Plaza MD - Last Filed: 10/15/22 01:38> Reevaluation #2: Physician observation continued: The patient is resting comfortably the patient's urinalysis was positive for leukocyte esterase. Microscopic is more consistent with a clean-catch with only 0-2 RBCs 0-5 WBCs greater than 20 squamous cells 4+ bacteria. At this time she will not be treated for urinary tract infection unless culture becomes positive. The patient is feeling better. The patient will be discharged home <Raphael Sneed MD - Last Filed: 10/15/22 05:54> Time: 05:10 <Raphael Sneed MD - Last Filed: 10/15/22 05:54> Medical Decision Making Medical Decision Making [facility] Narrative: 52-year-old female presents with abdominal pain. She has multiple chronic medical problems and recent [id number] amputation. At this time, will workup her abdominal pain. Differential diagnosis could include gastroenteritis, colitis, diverticulitis, pancreatitis, biliary, renal, doubt AAA or aortic dissection. Doubt mesenteric ischemia. She patient will receive IV fluids, analgesia and antiemetics. She will have serial exams. I will also order CT scan of the abdomen and pelvis. <Gio Plaza MD - Last Filed: 10/15/22 01:38> Differential Diagnosis Differential Diagnoses: The differential diagnosis associated with the presentation includes (See above) <Gio Plaza MD - Last Filed: 10/15/22 01:38> Lab Data [facility] Lab Attestation statement: I reviewed the patient's lab results. (Labs from previous visit today) <Gio Plaza MD - Last Filed: 10/15/22 01:38> Labs: Lab Results 10/15/22 Range/Units 04:03 Urine Color Dark Yellow Urine Appearance Clear Urine pH 5.0 (5.0-9.0) Ur Specific [place] >= 1.030 H (1.005-1.025) Urine Protein 100 (2+) H (Neg-Trace) mg/dL Urine Glucose (UA) 100 H (Negative) mg/dL Urine Ketones Negative (Negative) mg/dL Urine Blood Negative (Negative) Urine Nitrite Negative (Negative) Ur Leukocyte Esterase Small (1+) H (Negative) Urine RBC 0-2 (0-2) /HPF Urine WBC 0-5 (0-5) /HPF Ur Squamous Epith Cells >20 (0-2) /HPF Urine Bacteria 4+ (None Seen) Hyaline Casts 0-2 (0-2) /LPF <Gio Plaza MD - Last Filed: 10/15/22 01:38> Lab Results 10/15/22 Range/Units 04:03 Urine Color Dark Yellow Urine Appearance Clear Urine pH 5.0 (5.0-9.0) Ur Specific [place] >= 1.030 H (1.005-1.025) Urine Protein 100 (2+) H (Neg-Trace) mg/dL Urine Glucose (UA) 100 H (Negative) mg/dL Urine Ketones Negative (Negative) mg/dL Urine Blood Negative (Negative) Urine Nitrite Negative (Negative) Ur Leukocyte Esterase Small (1+) H (Negative) Urine RBC 0-2 (0-2) /HPF Urine WBC 0-5 (0-5) /HPF Ur Squamous Epith Cells >20 (0-2) /HPF Urine Bacteria 4+ (None Seen) Hyaline Casts 0-2 (0-2) /LPF <Raphael Sneed MD - Last Filed: 10/15/22 05:54> Independent Interpretation I performed an independent interpretation of an: EKG (Normal sinus rhythm heart rate 99, low voltage, no acute ST elevations or depressions, poor precordial progression, wandering baseline, no significant change from EKG on 10/14/2022), Plain X-Ray (Chest: No interval change) and CT Scan (No acute intra-abdominal process, bilateral pleural effusions right greater than left, increased markings at the lower bases likely atelectasis versus slight edema) <Gio Plaza MD - Last Filed: 10/15/22 01:38> Radiology Impression Radiologist Impression: Small amount of free fluid in the abdomen and pelvis. Diffuse anasarca redemonstrated. Interval increase in size of the nodular foci in bilateral lung bases compared to 09/24/2022. Given the short-term interval change, this is suggestive of an infectious inflammatory etiology. Follow-up dedicated chest imaging would be helpful to assess for resolution. Redemonstrated small pleural effusions. Splenomegaly. Mildly distended urinary bladder with associated mural prominence. Correlation with urinalysis is recommended to exclude cystitis. <Gio Plaza MD - Last Filed: 10/15/22 01:38> Prescription Management I considered prescription management with: Pain Medication <Gio Plaza MD - Last Filed: 10/15/22 01:38> Chronic Conditions Patient?s care impacted by: Diabetes and Hypertension <Gio Plaza MD - Last Filed: 10/15/22 01:38> Medications Administered Discontinued Medications Generic Name Dose Route Start Last Admin Trade Name Freq PRN Reason Stop Dose Admin Diphenhydramine HCl 25 mg 10/15/22 00:07 10/15/22 00:21 Diphenhydramine Hcl 50 Mg/Ml Vial IVPUSH 10/15/22 00:08 25 mg ONCE ONE Administration Iohexol 85 ml 10/15/22 00:48 10/15/22 00:49 Iohexol 350 Mg/Ml 100 Ml Infus..Btl IV 10/15/22 00:49 85 ml ONCE ONE Administration Morphine Sulfate 4 mg 10/15/22 00:05 10/15/22 00:21 Morphine Sulfate 4 Mg/Ml Cartridge IVPUSH 10/15/22 00:06 4 mg ONCE ONE Administration Protocol Morphine Sulfate 4 mg 10/15/22 02:39 10/15/22 02:46 Morphine Sulfate 4 Mg/Ml Cartridge IVPUSH 10/15/22 02:40 4 mg ONCE STA Administration Protocol Ondansetron HCl 4 mg 10/15/22 00:05 10/15/22 00:21 Ondansetron Hcl 4 Mg/2 Ml Vial IVPUSH 10/15/22 00:06 4 mg ONCE ONE Administration <Gio Plaza MD - Last Filed: 10/15/22 01:38> Medications Administered Discontinued Medications Generic Name Dose Route Start Last Admin Trade Name Freq PRN Reason Stop Dose Admin Diphenhydramine HCl 25 mg 10/15/22 00:07 10/15/22 00:21 Diphenhydramine Hcl 50 Mg/Ml Vial IVPUSH 10/15/22 00:08 25 mg ONCE ONE Administration Iohexol 85 ml 10/15/22 00:48 10/15/22 00:49 Iohexol 350 Mg/Ml 100 Ml Infus..Btl IV 10/15/22 00:49 85 ml ONCE ONE Administration Morphine Sulfate 4 mg 10/15/22 00:05 10/15/22 00:21 Morphine Sulfate 4 Mg/Ml Cartridge IVPUSH 10/15/22 00:06 4 mg ONCE ONE Administration Protocol Morphine Sulfate 4 mg 10/15/22 02:39 10/15/22 02:46 Morphine Sulfate 4 Mg/Ml Cartridge IVPUSH 10/15/22 02:40 4 mg ONCE STA Administration Protocol Ondansetron HCl 4 mg 10/15/22 00:05 10/15/22 00:21 Ondansetron Hcl 4 Mg/2 Ml Vial IVPUSH 10/15/22 00:06 4 mg ONCE ONE Administration <Raphael Sneed MD - Last Filed: 10/15/22 05:54> Discharge Plan Discharge Clinical Impression: Abdominal pain, Pleural effusion, Acute dyspnea <Gio Plaza MD - Last Filed: 10/15/22 01:38> Patient Disposition: Home, Self-Care <Gio Plaza MD - Last Filed: 10/15/22 01:38> Instructions: Pleural Effusion (ED), Abdominal Pain (ED), Dyspnea (ED) <Gio Plaza MD - Last Filed: 10/15/22 01:38> Additional Instructions: Your laboratory evaluation was unchanged from your baseline Your urine did not reveal any evidence for a urinary tract infection. The CT scan of your abdomen pelvis was similar to previous CT scan on 09/24/2022. Continue taking medications as prescribed by your providers. Follow-up with your doctor in 2 days. Please return to the emergency department if your symptoms get worse or if you develop any symptoms that are concerning to you. <Gio Plaza MD - Last Filed: 10/15/22 01:38> Prescriptions: No Action furosemide 40 mg Tablet 40 mg PO BID Qty: 30 0RF albuterol sulfate 2.5 mg /3 mL (0.083 %) solution for nebulization 1 vial inhalation Q6H PRN (Reason: Wheezing) Qty: 90 0RF lisinopril 20 mg tablet 20 mg PO DAILY Qty: 30 0RF gabapentin 300 mg capsule 2 cap PO BID Qty: 120 0RF montelukast 10 mg tablet 1 tab PO BEDTIME Qty: 30 0RF albuterol sulfate [Ventolin HFA] 90 mcg/actuation HFA aerosol inhaler 1 puff INHALATION Q4H PRN (Reason: Wheezing) Qty: 1 0RF Incruse Ellipta 62.5 mcg/actuation blister with device 1 puff PO DAILY Qty: 1 0RF hydrocodone-acetaminophen 5-325 mg tablet 1 tab PO Q6H PRN (Reason: pain) Qty: 20 0RF Rx Instructions: Partial Fill upon patient request. prednisone 20 mg tablet 40 mg PO DAILY Qty: 10 0RF atorvastatin 80 mg Tablet 80 mg PO BEDTIME 30 Days Qty: 30 0RF acetaminophen 325 mg Tablet 650 mg PO Q8H PRN (Reason: Pain, Mild (Pain Scale 1-3)) 30 Days Qty: 90 0RF polyethylene glycol 3350 17 gram Powder In Packet 17 g PO DAILY PRN (Reason: Constipation) 5 Days Qty: 30 0RF aspirin 81 mg Tablet,Delayed Release (Dr/Ec) 81 mg PO DAILY 30 Days Qty: 30 0RF carvedilol 3.125 mg Tablet 3.125 mg PO BID 30 Days Qty: 60 0RF Protocol: Hold for SBP/HR < HOLD for SBP < : 90 HOLD for HR < : 60 gabapentin 100 mg Capsule 200 mg PO BID 10 Days Qty: 40 0RF Brilinta 90 mg Tablet 90 mg PO BID 30 Days Qty: 60 0RF ondansetron 4 mg tablet,disintegrating 4 mg PO Q8H 3 Days Qty: 9 0RF ipratropium-albuterol 0.5 mg-3 mg(2.5 mg base)/3 mL solution for nebulization 3 ml inhalation TID Qty: 90 0RF prednisone 20 mg tablet 20 mg PO DAILY Qty: 5 0RF oxycodone 5 mg tablet 5 mg PO Q6H PRN (Reason: pain) Qty: 20 0RF Rx Instructions: Partial Fill upon patient request. <Gio Plaza MD - Last Filed: 10/15/22 01:38> Referrals: Physician,Unknown J [Primary Care Provider] - 2 days <Gio Plaza MD - Last Filed: 10/15/22 01:38>
[2022-10-15] MEDS: diphenhydrAMINE HCL 50 MG/ML VIAL 25 MG IVPUSH (00:21)
[2022-10-15] MEDS: Morphine Sulfate 4 MG/ML CARTRIDGE IVPUSH ×2 (00:21→02:46)
[2022-10-15] MEDS: ondansetron HCL 4 MG/2 ML VIAL IVPUSH (00:21)
[2022-10-15] MEDS: iohexoL 350 MG/ML 100 ML INFUS..BTL 85 ML IV (00:49)
--- NOTE | 2022-10-15 02:50 | PC.NURSE ---
late entry- pt reports to this rn pain has returned to abdomen. pt states that previous pain medication relieved pain though pain has come back at this time. this rn made dr martinez aware. orders placed pt medicated according to mar
[2022-10-15 03:44] VITALS: BP 122/80; PULSE 87; RESP 16; TEMP 36.8; O2SAT 97
[2022-10-15 04:09] LABS: Appearance Urine Clear; Color Urine Dark Yellow; Glucose Urine UA 100 mg/dL (Negative); Leukocyte Esterase Urine Small (1+) (Negative); Nitrite Urine Negative (Negative); Specific Gravity - Urine >= 1.030 (1.005-1.025); UMIC TRIGGER UACC YES; Urine Blood Negative (Negative); Urine Ketones Negative (Negative); Urine Protein 100 (2+) mg/dL (Neg-Trace)
[2022-10-15 04:21] LABS: Bacteria Urine 4+ (None Seen); Hyaline Casts Urine 0-2 /LPF (0-2); RBC Urine 0-2 /HPF (0-2); Squamous Epithelial Cell Urine >20 /HPF (0-2); UACC Culture Trigger YES; WBC Urine 0-5 /HPF (0-5)
--- NOTE | 2022-10-15 04:26 | PC.NURSE ---
this rn assisted pt onto bedpan. pt able to provide urine sample. urine sample sent down to lab
[2022-10-15 06:04] VITALS: BP 129/80; PULSE 91; RESP 18; TEMP 36.7; O2SAT 100
[2022-10-15] MEDS: Ketorolac Tromethamine 15 MG/ML VIAL IVPUSH (06:06)
--- NOTE | 2022-10-15 06:07 | PC.NURSE ---
pt medicated according to aug. pt reports 8/ pain.
--- NOTE | 2022-10-15 06:16 | PC.NURSE ---
vss. iv removed at time of discharge. pt provided with discharge packet. pt verbalized understanding of discharge plan. pt discharged to waiting room via wheelchair to await ride from partner.
== END 2022-10-15 06:18 | disposition home or self-care (01) ==
PROVIDERS: Emergency Medicine; Emergency Provider Emergency Medicine Emergency Medical Services
DX: R10.9 Unspecified abdominal pain (principal); J90 Pleural effusion, not elsewhere classified; R06.00 Dyspnea, unspecified; E11.9 Type 2 diabetes mellitus without complications; I10 Essential (primary) hypertension; Z79.82 Long term (current) use of aspirin; Z79.02 Long term (current) use of antithrombotics/antiplatelets; Z79.899 Other long term (current) drug therapy; F17.210 Nicotine dependence, cigarettes, uncomplicated; F12.90 Cannabis use, unspecified, uncomplicated
CPT/HCPCS: 71045; 74177; 81001; 87086; 93005; 96374; 96375; 96376; 99284; 99285; J1200; J1885; J2270; J2405; Q9967

== ENCOUNTER 2022-10-20 17:04 | Emergency (ER) | payer OTHER, SELFPAY | END 2022-10-20 19:23 | disposition left against medical advice (07) | PROVIDERS: Emergency Provider Emergency Medicine | DX: R06.02 Shortness of breath (principal) ==

== ENCOUNTER 2022-10-20 19:54 | Emergency (ER) | payer OTHER, SELFPAY ==
--- NOTE | ~2022-10-20 | XR_ITS ---
EXAMINATION: XR CHEST CLINICAL INFORMATION: Chest pain. Shortness of breath. COMPARISON: Chest done on 10/15/2022. TECHNIQUE: Frontal view of the chest was obtained. FINDINGS: Interval development of airspace disease is noted at both lung bases (right greater than left), most consistent with bibasilar pneumonia. Follow-up radiograph to resolution is recommended. The cardiomediastinal silhouette is borderline enlarged. No evidence of any pleural effusion or pneumothorax. The visualized upper abdomen is unremarkable. XR/XR chest 1V IMPRESSION: Interval development of bibasilar airspace disease (right greater than left), consistent with bibasilar pneumonia. Follow-up radiograph to resolution is recommended.
--- NOTE | ~2022-10-20 | US_ITS ---
EXAMINATION: US VENOUS ULTRASOUND WITH DOPPLER LOWER EXTREMITY, LEFT CLINICAL INFORMATION: Swelling and pain above BKA COMPARISON: 08/22/2021 TECHNIQUE: Ultrasound of the deep veins is performed from the hip to the calf with compression sonography and color and pulse Doppler assessment. Spectral analysis with color-flow imaging is performed. FINDINGS: There is normal venous compression and respiratory variation and augmented flow. The visualized common femoral vein, superficial femoral vein, profunda femoral vein, and popliteal vein show no evidence of deep venous thrombosis. Vessels below the knee are not able to be assessed due to overlying dressing. There is a popliteal fossa cyst measuring up to 2.7 cm. Mildly prominent inguinal lymph nodes are noted, favored to be reactive. If the patient's symptoms persist, followup ultrasound in 5 days 7 days might be of value to exclude proximal propagation from a non-visualized calf vein. US/US venous duplex LE IMPRESSION: 1. No DVT demonstrated in the left lower extremity, with the veins below the knee unable to be assessed due to overlying dressing. 2. Popliteal fossa cyst measuring up to 2.7 cm. 3. Mildly prominent inguinal lymph nodes, favored to be reactive.
[2022-10-20 20:01] VITALS: BP 136/74; PULSE 109; RESP 18; TEMP 36.6; O2SAT 100; BMI 26.6
--- NOTE | 2022-10-20 20:02 | ED.GENADULT ---
HPI - General Adult General Chief complaint: Dyspnea Stated complaint: chest pain, difficulty breathing Time Seen by Provider: 10/20/22 23:17 Related Data Previous Rx's Medication Instructions Recorded acetaminophen 325 mg tablet 650 mg PO Q8H PRN Pain, Mild (Pain 09/21/22 Scale 1-3) 30 days #90 tabs aspirin 81 mg tablet,delayed 81 mg PO DAILY 30 days #30 tabs 09/21/22 release atorvastatin 80 mg tablet 80 mg PO BEDTIME 30 days #30 tabs 09/21/22 carvedilol 3.125 mg tablet 3.125 mg PO BID 30 days #60 tabs 09/21/22 gabapentin 100 mg capsule 200 mg PO BID 10 days #40 caps 09/21/22 polyethylene glycol 3350 17 gram 17 g PO DAILY PRN Constipation 5 09/21/22 oral powder packet days #30 ea ticagrelor 90 mg tablet (Brilinta) 90 mg PO BID 30 days #60 tabs 09/21/22 ondansetron 4 mg disintegrating 4 mg PO Q8H 3 days #9 tabs 09/24/22 tablet albuterol sulfate 2.5 mg/3 mL 1 vial inhalation Q6H PRN Wheezing 09/29/22 (0.083 %) solution for nebulization #90 mL albuterol sulfate 90 mcg/actuation 1 puff inhalation Q4H PRN Wheezing 09/29/22 aerosol inhaler (Ventolin HFA) #1 g furosemide 40 mg tablet 40 mg PO BID #30 tabs 09/29/22 gabapentin 300 mg capsule 2 cap PO BID #120 caps 09/29/22 lisinopril 20 mg tablet 20 mg PO DAILY #30 tabs 09/29/22 montelukast 10 mg tablet 1 tab PO BEDTIME #30 tabs 09/29/22 umeclidinium 62.5 mcg/actuation 1 puff PO DAILY #1 ea 09/29/22 blister powder for inhalation (Incruse Ellipta) hydrocodone 5 mg-acetaminophen 325 1 tab PO Q6H PRN pain #20 tabs 10/05/22 mg tablet prednisone 20 mg tablet 40 mg PO DAILY #10 tabs 10/05/22 oxycodone 5 mg tablet 5 mg PO Q6H PRN pain #20 tabs 10/07/22 ipratropium 0.5 mg-albuterol 3 mg 3 ml inhalation TID #90 mL 10/14/22 (2.5 mg base)/3 mL nebulization soln prednisone 20 mg tablet 20 mg PO DAILY #5 tabs 10/14/22 azithromycin 250 mg tablet 250 mg PO DAILY 4 days #4 tabs 10/21/22 doxycycline hyclate 100 mg capsule 100 mg PO BID #9 caps 10/21/22 prednisone 50 mg tablet 50 mg PO DAILY #4 tabs 10/21/22 Allergies Allergy/AdvReac Type Severity Reaction Status Date / Time Penicillins [PENICILLINS] Allergy Severe RASH Verified 10/07/22 09:49 amoxicillin [AMOXICILLIN] Allergy Intermediate HIVES Verified 10/07/22 09:49 codeine Allergy Itching Verified 10/07/22 09:49 perflutren [From Definity] AdvReac Back Pain Verified 10/07/22 09:49 [facility] Past Medical History Medical History Asthma Atherosclerotic cardiovascular disease Atrial tachycardia Below-knee amputation of left lower extremity Cellulitis in diabetic foot COPD (chronic obstructive pulmonary disease) Coronary artery disease COVID-19 vaccine series completed Diabetes Diabetic foot infection Diabetic foot infection Diabetic foot ulcer Diabetic toe ulcer Essential hypertension GERD (gastroesophageal reflux disease) Hyperglycemia due to diabetes mellitus Hypertension Ischemic cardiomyopathy Left against medical advice Left against medical advice Osteomyelitis Osteomyelitis 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 PAD (peripheral artery disease) Surgical History History of esophagogastroduodenoscopy (EGD) History of toe surgery (09/22/21) Status post below-knee amputation of left lower extremity (09/20/22) Family History Family History Mother Hx of CABG Sister CAD (coronary artery disease) Social History Social History Household Members: Family and Children Housing: Apartment Do you presently have visiting nurse or other home services: No Unable to assess alcohol history related to: Refusing to respond Alcohol intake: never Patient Tobacco Use Status: Current everyday Tobacco user Tobacco use type: Cigarette Cigarette Packs Per Day: 0.5 Cigarettes Per Day: 6 Years Smoked: 43 e-Cigarette/Vaping Use: Currently Using Second Hand Smoke Exposure: Yes Substance Use Type: Marijuana Advance Directives: Yes Advance Directives on File: Yes Advance Directives Date on File: 09/22/22 service: No Current occupational status: disabled Physical Exam ED Vital Signs: Vital Signs - 24 hr 10/20/22 20:01 10/20/22 23:46 Temperature 98 F Pulse Rate 109 H 84 Respiratory Rate 18 20 Blood Pressure 136/74 Pulse Oximetry 100 Oxygen Delivery Method Room Air BMI result Body Mass Index 26.6 Course Course Course Narrative: This is an RME: Additional HPI, ROS, PE not included below will be deferred to primary provider. 52 year old female presents with CP, SOB worse with inspiration for one day. Patient reports she recently had a BKA. Denies fevers and chills. Patient anticoagluated, med compliant low suspicion for PE. Medications Administered Discontinued Medications Generic Name Dose Route Start Last Admin Trade Name Freq PRN Reason Stop Dose Admin Albuterol Sulfate 10 mg 10/20/22 23:34 10/20/22 23:44 Albuterol Sulfate (0.083%) 2.5 Mg/3 Ml Vial.Neb INHALE 10/20/22 23:35 10 mg ONCE ONE Administration Azithromycin 500 mg 10/20/22 23:35 10/21/22 00:08 Azithromycin 500 Mg Tablet PO 10/20/22 23:36 500 mg ONCE ONE Administration Doxycycline Monohydrate 100 mg 10/20/22 23:35 10/21/22 00:08 Doxycycline Monohydrate 100 Mg Capsule PO 10/20/22 23:36 100 mg ONCE ONE Administration Morphine Sulfate 4 mg 10/20/22 23:33 10/21/22 00:08 Morphine Sulfate 4 Mg/Ml Cartridge IM 10/20/22 23:34 4 mg ONCE ONE Administration Protocol Prednisone 60 mg 10/20/22 23:34 10/21/22 00:08 Prednisone 20 Mg Tablet PO 10/20/22 23:35 60 mg ONCE ONE Administration Medical Decision Making Medical Decision Making MDM Narrative: -patient states that she does not want to wait for the ultrasound results, patient is to leave. Patient states that her is epileptic and is afraid of leaving him home alone for a prolonged period of time. -patient aware that we do not know if she has a DVT, unlikely since she is already on blood thinners. -patient being discharged per her request. Lab Data 10/20/22 20:43 10/20/22 20:43 Labs: Lab Results 10/20/22 10/20/22 10/20/22 Range/Units 20:43 20:43 20:43 WBC 7.8 (4.8-10.8) X10*3/uL RBC 4.53 (4.20-5.50) X10*6/uL Hgb 9.2 L (12.0-16.0) g/dl Hct 32.4 L (37.0-47.0) % MCV 71.5 L (80.0-98.0) fL MCH 20.3 L (27.0-33.0) pg MCHC 28.4 L (31.0-35.0) g/dl RDW 25.0 H (11.0-16.0) % Plt Count 135 L (160-400) X10*3/uL MPV Not Reportable Immature Gran % (Auto) 0.5 H (0.0-0.4) % Neut % (Auto) 76.0 H (45-73) % Lymph % (Auto) 17.1 L (20-40) % [place] % (Auto) 4.9 (2-11) % Eos % (Auto) 0.9 (0-4) % Baso % (Auto) 0.6 (0-2) % Lymph # (Auto) 1.3 (1.2-4.9) X10*3/uL [place] # (Auto) 0.4 (0.1-1.2) X10*3/uL Eos # (Auto) 0.1 (0.0-0.4) X10*3/uL Baso # (Auto) 0.1 (0.0-0.2) X10*3/uL Abs Immat Gran (auto) 0.04 H (0.00-0.03) X10*3/uL Absolute Neuts (auto) 6.0 (2.0-8.3) x10*3/uL Absolute Nucleated RBC 0.030 H (0.0-0.012) X10*3/uL Nucleated RBC % (auto) 0.4 H (0.0-0.2) /100WBC Smear Tech's Comments VERIFIED Sodium 139 (135-145) mmol/L Potassium 4.5 (3.3-5.1) mmol/L Chloride 105 (96-108) mmol/L Carbon Dioxide 28 (22-29) mmol/L Anion Gap 11 L (12-20) BUN 12 (9-16) mg/dL Creatinine 0.80 (0.5-1.4) mg/dL Estim Creat Clear Calc 89.0 Estimated GFR > 60 Random Glucose 150 H (60-115) mg/dL Calcium 8.8 (8.4-10.2) mg/dL Magnesium 1.7 (1.6-2.6) mg/dL Total Bilirubin 1.6 H (0.0-1.0) mg/dL AST 9 (5-31) U/L ALT 17 (0-31) U/L Alkaline Phosphatase 124 H (39-117) U/L Troponin I High Sens 28.7 H (<3.5-17.0) ng/L Total Protein 6.0 L (6.5-8.0) g/dL Albumin 3.4 L (3.5-5.0) g/dL Beta HCG, Quant < 2 mIU/mL Discharge Plan Discharge Clinical Impression: Phantom limb pain, Left leg swelling, Chronic lung disease Patient Disposition: Home, Self-Care Instructions: COPD (Chronic Obstructive Pulmonary Disease) (ED) Additional Instructions: Please follow-up with your primary care physician tomorrow. If you have any worsening or new symptoms, please return to the emergency room or call 911 Prescriptions: New azithromycin 250 mg tablet 250 mg PO DAILY 4 Days Qty: 4 0RF Rx Instructions: start on day 2 of therapy doxycycline hyclate 100 mg capsule 100 mg PO BID Qty: 9 0RF prednisone 50 mg tablet 50 mg PO DAILY Qty: 4 0RF No Action furosemide 40 mg Tablet 40 mg PO BID Qty: 30 0RF albuterol sulfate 2.5 mg /3 mL (0.083 %) solution for nebulization 1 vial inhalation Q6H PRN (Reason: Wheezing) Qty: 90 0RF lisinopril 20 mg tablet 20 mg PO DAILY Qty: 30 0RF gabapentin 300 mg capsule 2 cap PO BID Qty: 120 0RF montelukast 10 mg tablet 1 tab PO BEDTIME Qty: 30 0RF albuterol sulfate [Ventolin HFA] 90 mcg/actuation HFA aerosol inhaler 1 puff INHALATION Q4H PRN (Reason: Wheezing) Qty: 1 0RF Incruse Ellipta 62.5 mcg/actuation blister with device 1 puff PO DAILY Qty: 1 0RF hydrocodone-acetaminophen 5-325 mg tablet 1 tab PO Q6H PRN (Reason: pain) Qty: 20 0RF Rx Instructions: Partial Fill upon patient request. prednisone 20 mg tablet 40 mg PO DAILY Qty: 10 0RF atorvastatin 80 mg Tablet 80 mg PO BEDTIME 30 Days Qty: 30 0RF acetaminophen 325 mg Tablet 650 mg PO Q8H PRN (Reason: Pain, Mild (Pain Scale 1-3)) 30 Days Qty: 90 0RF polyethylene glycol 3350 17 gram Powder In Packet 17 g PO DAILY PRN (Reason: Constipation) 5 Days Qty: 30 0RF aspirin 81 mg Tablet,Delayed Release (Dr/Ec) 81 mg PO DAILY 30 Days Qty: 30 0RF carvedilol 3.125 mg Tablet 3.125 mg PO BID 30 Days Qty: 60 0RF Protocol: Hold for SBP/HR < HOLD for SBP < : 90 HOLD for HR < : 60 gabapentin 100 mg Capsule 200 mg PO BID 10 Days Qty: 40 0RF Brilinta 90 mg Tablet 90 mg PO BID 30 Days Qty: 60 0RF ondansetron 4 mg tablet,disintegrating 4 mg PO Q8H 3 Days Qty: 9 0RF ipratropium-albuterol 0.5 mg-3 mg(2.5 mg base)/3 mL solution for nebulization 3 ml inhalation TID Qty: 90 0RF prednisone 20 mg tablet 20 mg PO DAILY Qty: 5 0RF oxycodone 5 mg tablet 5 mg PO Q6H PRN (Reason: pain) Qty: 20 0RF Rx Instructions: Partial Fill upon patient request. Interventions: LWBS Worksheet Last Done: 10/20/22 19:58
--- NOTE | 2022-10-20 20:03 | ECG_ITS ---
Test Reason : CHEST PAIN Blood Pressure : / mmHG Vent. Rate : 108 BPM Atrial Rate : 108 BPM P-R Int : 140 ms QRS Dur : 078 ms QT Int : 342 ms P-R-T Axes : 077 087 099 degrees QTc Int : 458 ms Sinus tachycardia Low voltage QRS Cannot rule out Anterior infarct (cited on or before 13-JUN-2022) Abnormal ECG When compared with ECG of 15-OCT-2022 00:13, Nonspecific T wave abnormality now evident in Inferior leads Referred By: Jenni Cherry Electronically Signed By:WENDY JIMENES
[2022-10-20 20:49] LABS: Imm Gran Abs Auto 0.04 X10*3/uL (0.00-0.03); Imm Gran Pct Auto 0.5 % (0.0-0.4); MANUAL DIFF FLAG SCAN; SCAN SMEAR FLAG 1
[2022-10-20 20:51] LABS: Basophils Absolute Auto 0.1 X10*3/uL (0.0-0.2); Basophils Percent Auto 0.6 % (0-2); Eosinophils Absolute Auto 0.1 X10*3/uL (0.0-0.4); Eosinophils Percent Auto 0.9 % (0-4); Hematocrit 32.4 % (37.0-47.0); Hemoglobin 9.2 g/dl (12.0-16.0); Lymphocytes Absolute Auto 1.3 X10*3/uL (1.2-4.9); Lymphocytes Percent Auto 17.1 % (20-40); Mean Corpuscular HGB Conc 28.4 g/dl (31.0-35.0); Mean Corpuscular Hemoglobin 20.3 pg (27.0-33.0); Mean Corpuscular Volume 71.5 fL (80.0-98.0); Monocytes Absolute Auto 0.4 X10*3/uL (0.1-1.2); Monocytes Percent Auto 4.9 % (2-11); NRBC Pct Auto 0.4 /100WBC (0.0-0.2); Platelet Count 135 X10*3/uL (160-400); Red Blood Count 4.53 X10*6/uL (4.20-5.50); White Blood Count 7.8 X10*3/uL (4.8-10.8)
[2022-10-20 20:54] LABS: PLT ABN DIST 1
[2022-10-20 21:12] LABS: Alanine Aminotransferase 17 U/L (0-31); Albumin Level 3.4 g/dL (3.5-5.0); Alkaline Phosphatase 124 U/L (39-117); Anion Gap 11 (12-20); Aspartate Amino Transferase 9 U/L (5-31); Bilirubin Total 1.6 mg/dL (0.0-1.0); Blood Urea Nitrogen 12 mg/dL (9-16); Calcium 8.8 mg/dL (8.4-10.2); Carbon Dioxide 28 mmol/L (22-29); Chloride 105 mmol/L (96-108); Estimated Glomerular Filt Rate > 60; Glucose Random 150 mg/dL (60-115); Magnesium 1.7 mg/dL (1.6-2.6); Potassium 4.5 mmol/L (3.3-5.1); Sodium 139 mmol/L (135-145)
[2022-10-20 21:13] LABS: HCG Quantitative < 2 mIU/mL; Troponin-I High Sensitivity 28.7 ng/L (<3.5-17.0)
[2022-10-20 22:18] LABS: SLIDE REVIEW VERIFIED
--- NOTE | 2022-10-20 23:37 | ED.GENADULT ---
HPI - General Adult General Chief complaint: Dyspnea Stated complaint: chest pain, difficulty breathing Time Seen by Provider: 10/20/22 23:17 Source: patient Mode of arrival: ambulatory Limitations: no limitations History of Present Illness HPI narrative: Patient comes to the emergency room complaining of shortness of breath that started earlier this morning. Patient states that she was seen here 4 days ago, prescriptions were sent to her pharmacy but she did not get them. Patient has been using her albuterol significant relief. Patient states that she has not had any fever or chills. Also, patient complaining of phantom pain of her left lower extremity. States that ibuprofen and Tylenol do not help. Related Data Previous Rx's Medication Instructions Recorded acetaminophen 325 mg tablet 650 mg PO Q8H PRN Pain, Mild (Pain 09/21/22 Scale 1-3) 30 days #90 tabs aspirin 81 mg tablet,delayed 81 mg PO DAILY 30 days #30 tabs 09/21/22 release atorvastatin 80 mg tablet 80 mg PO BEDTIME 30 days #30 tabs 09/21/22 carvedilol 3.125 mg tablet 3.125 mg PO BID 30 days #60 tabs 09/21/22 gabapentin 100 mg capsule 200 mg PO BID 10 days #40 caps 09/21/22 polyethylene glycol 3350 17 gram 17 g PO DAILY PRN Constipation 5 09/21/22 oral powder packet days #30 ea ticagrelor 90 mg tablet (Brilinta) 90 mg PO BID 30 days #60 tabs 09/21/22 ondansetron 4 mg disintegrating 4 mg PO Q8H 3 days #9 tabs 09/24/22 tablet albuterol sulfate 2.5 mg/3 mL 1 vial inhalation Q6H PRN Wheezing 09/29/22 (0.083 %) solution for nebulization #90 mL albuterol sulfate 90 mcg/actuation 1 puff inhalation Q4H PRN Wheezing 09/29/22 aerosol inhaler (Ventolin HFA) #1 g furosemide 40 mg tablet 40 mg PO BID #30 tabs 09/29/22 gabapentin 300 mg capsule 2 cap PO BID #120 caps 09/29/22 lisinopril 20 mg tablet 20 mg PO DAILY #30 tabs 09/29/22 montelukast 10 mg tablet 1 tab PO BEDTIME #30 tabs 09/29/22 umeclidinium 62.5 mcg/actuation 1 puff PO DAILY #1 ea 09/29/22 blister powder for inhalation (Incruse Ellipta) hydrocodone 5 mg-acetaminophen 325 1 tab PO Q6H PRN pain #20 tabs 10/05/22 mg tablet prednisone 20 mg tablet 40 mg PO DAILY #10 tabs 10/05/22 oxycodone 5 mg tablet 5 mg PO Q6H PRN pain #20 tabs 10/07/22 ipratropium 0.5 mg-albuterol 3 mg 3 ml inhalation TID #90 mL 10/14/22 (2.5 mg base)/3 mL nebulization soln prednisone 20 mg tablet 20 mg PO DAILY #5 tabs 10/14/22 Allergies Allergy/AdvReac Type Severity Reaction Status Date / Time Penicillins [PENICILLINS] Allergy Severe RASH Verified 10/07/22 09:49 amoxicillin [AMOXICILLIN] Allergy Intermediate HIVES Verified 10/07/22 09:49 codeine Allergy Itching Verified 10/07/22 09:49 perflutren [From Definity] AdvReac Back Pain Verified 10/07/22 09:49 Review of Systems Review of Systems: Constitutional : No Weight loss, No Fever, No Chills, No Night Sweats, No Fatigue, No Malaise ENT/Mouth : No Hearing loss, No Ear Pain, No Nasal Congestion, No Sinus Pain, No Hoarseness, No sore throat, No Rhinorrhea, No Swallowing Difficulty Eyes: No Eye Pain, No Swelling, No Redness, No Foreign Body, No Discharge, No Vision Changes Cardiovascular : No Chest Pain, No SOB, No Dyspnea on Exertion, No Orthopnea, No Edema, No Palpitations Respiratory : Complaining of chronic cough, worsening wheezing, dyspnea Gastrointestinal : No Nausea, No Vomiting, No Diarrhea, No Constipation, No abdominal Pain, No Hematochezia, No Melena Genitourinary : no irregular bleeding, No Dysuria, No Urinary Frequency, No Hematuria, No Urinary Incontinence, No Urgency, No Flank Pain, No Urinary Flow Changes, No Hesitancy Musculoskeletal : Complaining of phantom pain in the left lower extremity, No Myalgias, No Joint Swelling Skin : No Skin Lesions, No rash Neuro : No Weakness, No Numbness, No Paresthesias, No Loss of Consciousness, No Dizziness, No Headache Psych : No Anxiety/Panic, No Depression, No SI/HI/AH/VH, No Social Issues, Heme/Lymph: No Bruising, No Bleeding,No Lymphadenopathy Endocrine : No Polyuria, No Polydipsia, No Temperature Intolerance [facility] Past Medical History Medical History Asthma Atherosclerotic cardiovascular disease Atrial tachycardia Below-knee amputation of left lower extremity Cellulitis in diabetic foot COPD (chronic obstructive pulmonary disease) Coronary artery disease COVID-19 vaccine series completed Diabetes Diabetic foot infection Diabetic foot infection Diabetic foot ulcer Diabetic toe ulcer Essential hypertension GERD (gastroesophageal reflux disease) Hyperglycemia due to diabetes mellitus Hypertension Ischemic cardiomyopathy Left against medical advice Left against medical advice Osteomyelitis Osteomyelitis 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 PAD (peripheral artery disease) Surgical History History of esophagogastroduodenoscopy (EGD) History of toe surgery (09/22/21) Status post below-knee amputation of left lower extremity (09/20/22) Family History Family History Mother Hx of CABG Sister CAD (coronary artery disease) Social History Social History Household Members: Family and Children Housing: Apartment Do you presently have visiting nurse or other home services: No Unable to assess alcohol history related to: Refusing to respond Alcohol intake: never Patient Tobacco Use Status: Current everyday Tobacco user Tobacco use type: Cigarette Cigarette Packs Per Day: 0.5 Cigarettes Per Day: 6 Years Smoked: 43 e-Cigarette/Vaping Use: Currently Using Second Hand Smoke Exposure: Yes Substance Use Type: Marijuana Advance Directives: Yes Advance Directives on File: Yes Advance Directives Date on File: 09/22/22 service: No Current occupational status: disabled Physical Exam ED Vital Signs: Vital Signs - 24 hr 10/20/22 20:01 Temperature 98 F Pulse Rate 109 H Respiratory Rate 18 Blood Pressure 136/74 Pulse Oximetry 100 Oxygen Delivery Method Room Air BMI result Body Mass Index 26.6 Const Other: Appearance: Alert. Oriented X3. No acute distress. Eyes: Pupils equal, round and reactive to light. ENT: Pharynx normal. Neck: Normal inspection. Neck supple. No lymph nodes noted. No crepitus CVS: Normal heart rate and rhythm. Pulses normal. Normal S1 and S2 Respiratory: No respiratory distress. Bilateral wheezing, moderate air movement Abdomen: Soft and nontender. No rigidity. No distention. Skin: Skin warm and dry. Normal skin color. Normal skin turgor. Extremities: BKA on the left side, there is pitting edema in the left thigh above the BKA Neuro: Oriented X 3. No motor deficit. No sensory deficit. Moving all extremities. No slurred speech. CN 2 through 12 grossly intact Psych: calm, cooperative, normal affect Course Course Course Narrative: -patient's white blood cell count within normal limit -x-ray shows questionable pneumonia. Given the patient's comorbidities, we will go ahead and treat, patient received in the emergency room p.o. azithromycin, doxycycline, albuterol and prednisone -ultrasound of the left lower extremity pending Medical Decision Making Lab Data 10/20/22 20:43 10/20/22 20:43 Labs: Lab Results 10/20/22 10/20/22 10/20/22 Range/Units 20:43 20:43 20:43 WBC 7.8 (4.8-10.8) X10*3/uL RBC 4.53 (4.20-5.50) X10*6/uL Hgb 9.2 L (12.0-16.0) g/dl Hct 32.4 L (37.0-47.0) % MCV 71.5 L (80.0-98.0) fL MCH 20.3 L (27.0-33.0) pg MCHC 28.4 L (31.0-35.0) g/dl RDW 25.0 H (11.0-16.0) % Plt Count 135 L (160-400) X10*3/uL MPV Not Reportable Immature Gran % (Auto) 0.5 H (0.0-0.4) % Neut % (Auto) 76.0 H (45-73) % Lymph % (Auto) 17.1 L (20-40) % [place] % (Auto) 4.9 (2-11) % Eos % (Auto) 0.9 (0-4) % Baso % (Auto) 0.6 (0-2) % Lymph # (Auto) 1.3 (1.2-4.9) X10*3/uL [place] # (Auto) 0.4 (0.1-1.2) X10*3/uL Eos # (Auto) 0.1 (0.0-0.4) X10*3/uL Baso # (Auto) 0.1 (0.0-0.2) X10*3/uL Abs Immat Gran (auto) 0.04 H (0.00-0.03) X10*3/uL Absolute Neuts (auto) 6.0 (2.0-8.3) x10*3/uL Absolute Nucleated RBC 0.030 H (0.0-0.012) X10*3/uL Nucleated RBC % (auto) 0.4 H (0.0-0.2) /100WBC Smear Tech's Comments VERIFIED Sodium 139 (135-145) mmol/L Potassium 4.5 (3.3-5.1) mmol/L Chloride 105 (96-108) mmol/L Carbon Dioxide 28 (22-29) mmol/L Anion Gap 11 L (12-20) BUN 12 (9-16) mg/dL Creatinine 0.80 (0.5-1.4) mg/dL Estim Creat Clear Calc 89.0 Estimated GFR > 60 Random Glucose 150 H (60-115) mg/dL Calcium 8.8 (8.4-10.2) mg/dL Magnesium 1.7 (1.6-2.6) mg/dL Total Bilirubin 1.6 H (0.0-1.0) mg/dL AST 9 (5-31) U/L ALT 17 (0-31) U/L Alkaline Phosphatase 124 H (39-117) U/L Troponin I High Sens 28.7 H (<3.5-17.0) ng/L Total Protein 6.0 L (6.5-8.0) g/dL Albumin 3.4 L (3.5-5.0) g/dL Beta HCG, Quant < 2 mIU/mL Discharge Plan Discharge Clinical Impression: Phantom limb pain, Left leg swelling, Chronic lung disease Patient Disposition: Still a Patient Prescriptions: No Action furosemide 40 mg Tablet 40 mg PO BID Qty: 30 0RF albuterol sulfate 2.5 mg /3 mL (0.083 %) solution for nebulization 1 vial inhalation Q6H PRN (Reason: Wheezing) Qty: 90 0RF lisinopril 20 mg tablet 20 mg PO DAILY Qty: 30 0RF gabapentin 300 mg capsule 2 cap PO BID Qty: 120 0RF montelukast 10 mg tablet 1 tab PO BEDTIME Qty: 30 0RF albuterol sulfate [Ventolin HFA] 90 mcg/actuation HFA aerosol inhaler 1 puff INHALATION Q4H PRN (Reason: Wheezing) Qty: 1 0RF Incruse Ellipta 62.5 mcg/actuation blister with device 1 puff PO DAILY Qty: 1 0RF hydrocodone-acetaminophen 5-325 mg tablet 1 tab PO Q6H PRN (Reason: pain) Qty: 20 0RF Rx Instructions: Partial Fill upon patient request. prednisone 20 mg tablet 40 mg PO DAILY Qty: 10 0RF atorvastatin 80 mg Tablet 80 mg PO BEDTIME 30 Days Qty: 30 0RF acetaminophen 325 mg Tablet 650 mg PO Q8H PRN (Reason: Pain, Mild (Pain Scale 1-3)) 30 Days Qty: 90 0RF polyethylene glycol 3350 17 gram Powder In Packet 17 g PO DAILY PRN (Reason: Constipation) 5 Days Qty: 30 0RF aspirin 81 mg Tablet,Delayed Release (Dr/Ec) 81 mg PO DAILY 30 Days Qty: 30 0RF carvedilol 3.125 mg Tablet 3.125 mg PO BID 30 Days Qty: 60 0RF Protocol: Hold for SBP/HR < HOLD for SBP < : 90 HOLD for HR < : 60 gabapentin 100 mg Capsule 200 mg PO BID 10 Days Qty: 40 0RF Brilinta 90 mg Tablet 90 mg PO BID 30 Days Qty: 60 0RF ondansetron 4 mg tablet,disintegrating 4 mg PO Q8H 3 Days Qty: 9 0RF ipratropium-albuterol 0.5 mg-3 mg(2.5 mg base)/3 mL solution for nebulization 3 ml inhalation TID Qty: 90 0RF prednisone 20 mg tablet 20 mg PO DAILY Qty: 5 0RF oxycodone 5 mg tablet 5 mg PO Q6H PRN (Reason: pain) Qty: 20 0RF Rx Instructions: Partial Fill upon patient request. Interventions: LWBS Worksheet Last Done: 10/20/22 19:58
[2022-10-20] MEDS: Albuterol Sulfate (0.083%) 2.5 MG/3 ML VIAL.NEB 10 MG INHALE (23:44)
[2022-10-20 23:46] VITALS: PULSE 84; RESP 20; O2SAT 98
[2022-10-21] MEDS: predniSONE 20 MG TABLET 60 MG PO (00:08)
[2022-10-21] MEDS: Doxycycline Monohydrate 100 MG CAPSULE PO (00:08)
[2022-10-21] MEDS: Morphine Sulfate 4 MG/ML CARTRIDGE IM (00:08)
[2022-10-21] MEDS: Azithromycin 500 MG TABLET PO (00:08)
--- NOTE | 2022-10-21 00:24 | PC.NURSE ---
pt to ultrasound
== END 2022-10-21 01:12 | disposition home or self-care (01) ==
PROVIDERS: Physician Assistant; Emergency Provider Emergency Medicine
DX: R07.89 Other chest pain (principal); G54.7 Phantom limb syndrome without pain; R06.02 Shortness of breath; R60.0 Localized edema; Z79.899 Other long term (current) drug therapy; F17.210 Nicotine dependence, cigarettes, uncomplicated; Z71.6 Tobacco abuse counseling
CPT/HCPCS: 36415; 71045; 80053; 83735; 84484; 84702; 85025; 93005; 93971; 94640; 96372; 99284; J2270

== ENCOUNTER 2022-10-21 12:12 | Emergency (ER) | payer OTHER, SELFPAY ==
--- NOTE | ~2022-10-21 | US_ITS ---
EXAMINATION: TARGETED ULTRASOUND EXAMINATION TO LEFT [id number] AMPUTATION STUMP. CLINICAL INFORMATION: Question abscess to left BKA stump. Redness, swelling, and drainage. COMPARISON: None. TECHNIQUE: Targeted ultrasound evaluation to left [id number] amputation stump. FINDINGS: Scanning demonstrates edematous change throughout the tissues. No abscess collection is appreciated. US/US extremity nonvascular IMPRESSION: Edema within the tissues of left BKA stump without evidence of abscess.
--- NOTE | ~2022-10-21 | CT_ITS ---
EXAMINATION: CT LEFT LOWER EXTREMITY WITH CONTRAST.. CLINICAL INFORMATION: History of the below-knee amputation with stump redness/swelling/pain COMPARISON: Ultrasound 10/21/2022. TECHNIQUE: Axial imaging. Sagittal and coronal reconstructions. 90 mL Omnipaque [id number]. FINDINGS: Patient is status post below-knee amputation, at the level of the proximal tibial diaphysis. There is a soft tissue swelling and edema in the amputation stump. No organized fluid collection or peripherally enhancing abscess is seen. There are foci of increased density in the soft tissue/muscles around the amputation margin. It is uncertain if this represents areas of enhancement, dystrophic calcification/ossification, vascularity. No significant air is seen in the soft tissues. There is prominent circumferential soft tissue swelling and subcutaneous stranding in the visualized femur, tibia, which could reflect edema or cellulitis. No organized fluid collection is seen. No evidence of definite erosive changes or osteolysis in the amputation margin of the tibia to suggest definite osteomyelitis. Subtle bony irregularity of the distal amputation margin of the fibula, could be postsurgical, but osteolysis from osteomyelitis cannot be excluded. No evidence of fracture. Normal knee joint articulation. Joint spaces are maintained. Trace suprapatellar joint fluid. CT/CT lower leg LT w IV con IMPRESSION: Status post below-knee amputation. Soft tissue swelling and edema of the left BKA stump. No organized fluid collection or peripherally enhancing abscess is seen. Densities in the soft tissues near the amputation margin, could represent dystrophic changes, prominent vascularity or soft tissue enhancement. No evidence of erosions or osteolysis the distal tibial amputation margin. Subtle irregularity of the distal fibula patient margin, could reflect postsurgical changes, however osteomyelitis cannot be excluded. Further evaluation with MRI as clinically warranted. Circumferential soft tissue swelling and subcutaneous edema or cellulitis in the distal tibia and the visualized femur. Additional findings and details as above.
[2022-10-21 12:27] VITALS: BP 136/86; PULSE 104; RESP 18; TEMP 36.6; O2SAT 100; BMI 25.4
--- NOTE | 2022-10-21 12:29 | ED_ITS ---
HPI - General Adult General Chief complaint: Wound/Laceration Stated complaint: foot/ leg wrapped Time Seen by Provider: 10/21/22 12:45 Source: patient and family Mode of arrival: wheelchair Limitations: no limitations History of Present Illness HPI narrative: 52yoF with a PMHx Sig for asthma, COPD, diabetes, hypertension, ischemic cardiomyopathy, GERD, PAD, osteomyelitis of left foot s/p BKA on 09/20/[address] Cantu who is presenting to the ER with complaints of worsening pain to her left fdluc-bum-wblh amputation /stump over the past few days worse today. Reports that she was seen here yesterday and started on some antibiotics for possible pneumonia although she woke up today and had some purulent discharge on her dressing which is new for her therefore she came here for further evaluation treatment. She denies any recent falls or trauma, any fevers or chills, any redness spreading up her leg or any other symptoms complaints or concerns at this time. MD complaint: Worsening pain to left stump Onset (ago): day(s) Related Data Previous Rx's Medication Instructions Recorded acetaminophen 325 mg tablet 650 mg PO Q8H PRN Pain, Mild (Pain 09/21/22 Scale 1-3) 30 days #90 tabs aspirin 81 mg tablet,delayed 81 mg PO DAILY 30 days #30 tabs 09/21/22 release atorvastatin 80 mg tablet 80 mg PO BEDTIME 30 days #30 tabs 09/21/22 carvedilol 3.125 mg tablet 3.125 mg PO BID 30 days #60 tabs 09/21/22 gabapentin 100 mg capsule 200 mg PO BID 10 days #40 caps 09/21/22 polyethylene glycol 3350 17 gram 17 g PO DAILY PRN Constipation 5 09/21/22 oral powder packet days #30 ea ticagrelor 90 mg tablet (Brilinta) 90 mg PO BID 30 days #60 tabs 09/21/22 ondansetron 4 mg disintegrating 4 mg PO Q8H 3 days #9 tabs 09/24/22 tablet albuterol sulfate 2.5 mg/3 mL 1 vial inhalation Q6H PRN Wheezing 09/29/22 (0.083 %) solution for nebulization #90 mL albuterol sulfate 90 mcg/actuation 1 puff inhalation Q4H PRN Wheezing 09/29/22 aerosol inhaler (Ventolin HFA) #1 g furosemide 40 mg tablet 40 mg PO BID #30 tabs 09/29/22 gabapentin 300 mg capsule 2 cap PO BID #120 caps 09/29/22 lisinopril 20 mg tablet 20 mg PO DAILY #30 tabs 09/29/22 montelukast 10 mg tablet 1 tab PO BEDTIME #30 tabs 09/29/22 umeclidinium 62.5 mcg/actuation 1 puff PO DAILY #1 ea 09/29/22 blister powder for inhalation (Incruse Ellipta) prednisone 20 mg tablet 40 mg PO DAILY #10 tabs 10/05/22 ipratropium 0.5 mg-albuterol 3 mg 3 ml inhalation TID #90 mL 10/14/22 (2.5 mg base)/3 mL nebulization soln prednisone 20 mg tablet 20 mg PO DAILY #5 tabs 10/14/22 azithromycin 250 mg tablet 250 mg PO DAILY 4 days #4 tabs 10/21/22 cephalexin 500 mg capsule 500 mg PO Q6H 10 days #40 caps 10/21/22 doxycycline hyclate 100 mg capsule 100 mg PO BID #9 caps 10/21/22 doxycycline monohydrate 100 mg 100 mg PO BID 10 days #20 tabs 10/21/22 tablet oxycodone 5 mg tablet 5 mg PO Q6H PRN pain #20 tabs 10/21/22 oxycodone 5 mg tablet 5 mg PO Q6H PRN pain #7 tabs 10/21/22 prednisone 50 mg tablet 50 mg PO DAILY #4 tabs 10/21/22 Allergies Allergy/AdvReac Type Severity Reaction Status Date / Time Penicillins [PENICILLINS] Allergy Severe RASH Verified 10/07/22 09:49 amoxicillin [AMOXICILLIN] Allergy Intermediate HIVES Verified 10/07/22 09:49 codeine Allergy Itching Verified 10/07/22 09:49 perflutren [From Definity] AdvReac Back Pain Verified 10/07/22 09:49 Review of Systems 2 Review of Systems: Constitutional : No Weight loss, No Fever, No Chills, No Night Sweats, No Fatigue, No Malaise ENT/Mouth : No Hearing loss, No Ear Pain, No Nasal Congestion, No Sinus Pain, No Hoarseness, No sore throat, No Rhinorrhea, No Swallowing Difficulty Eyes: No Eye Pain, No Swelling, No Redness, No Foreign Body, No Discharge, No Vision Changes Cardiovascular : No Chest Pain, No SOB, No Dyspnea on Exertion, No Orthopnea, No Edema, No Palpitations Respiratory : No Cough, No Sputum, No Wheezing, No Smoke Exposure, No Dyspnea Gastrointestinal : No Nausea, No Vomiting, No Diarrhea, No Constipation, No abdominal Pain, No Hematochezia, No Melena Genitourinary : no irregular bleeding, No Dysuria, No Urinary Frequency, No Hematuria, No Urinary Incontinence, No Urgency, No Flank Pain, No Urinary Flow Changes, No Hesitancy Musculoskeletal : + left BKA stump joint pain, No Myalgias, No Joint Swelling Skin : + redness and purulent drainage to left stump area, No Skin Lesions, No rash Neuro : No Weakness, No Numbness, No Paresthesias, No Loss of Consciousness, No Dizziness, No Headache Psych : No Anxiety/Panic, No Depression, No SI/HI/AH/VH, No Social Issues, Heme/Lymph: No Bruising, No Bleeding,No Lymphadenopathy Endocrine : No Polyuria, No Polydipsia, No Temperature Intolerance Yes all other systems are reviewed and are negative [facility] Past Medical History Attestation statement: The following information was validated with the patient. Source: old records reviewed, obtained from family and nursing notes reviewed Medical History Asthma Atherosclerotic cardiovascular disease Atrial tachycardia Below-knee amputation of left lower extremity Cellulitis in diabetic foot COPD (chronic obstructive pulmonary disease) Coronary artery disease COVID-19 vaccine series completed Diabetes Diabetic foot infection Diabetic foot infection Diabetic foot ulcer Diabetic toe ulcer Essential hypertension GERD (gastroesophageal reflux disease) Hyperglycemia due to diabetes mellitus Hypertension Ischemic cardiomyopathy Left against medical advice Left against medical advice Osteomyelitis Osteomyelitis 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 PAD (peripheral artery disease) Surgical History History of esophagogastroduodenoscopy (EGD) History of toe surgery (09/22/21) Status post below-knee amputation of left lower extremity (09/20/22) Family History Family History Mother Hx of CABG Sister CAD (coronary artery disease) Social History Social History Household Members: Family and Children Housing: Apartment Do you presently have visiting nurse or other home services: No Unable to assess alcohol history related to: Refusing to respond Alcohol intake: never Patient Tobacco Use Status: Current everyday Tobacco user Tobacco use type: Cigarette Cigarette Packs Per Day: 0.5 Cigarettes Per Day: 6 Years Smoked: 43 Smoked in Last 30 Days: Yes e-Cigarette/Vaping Use: Currently Using Second Hand Smoke Exposure: Yes Use of substances other than those prescribed or required for medical reasons: No Substance Use Type: Marijuana Advance Directives: Yes Advance Directives on File: Yes Advance Directives Date on File: 09/22/22 Patient : No service: No Current occupational status: disabled Physical Exam ED Vital Signs: Vital Signs - 24 hr 10/21/22 12:27 10/21/22 15:32 Temperature 98 F Pulse Rate 104 H 103 H Respiratory Rate 18 16 Blood Pressure 136/86 138/84 Pulse Oximetry 100 100 Oxygen Delivery Method Room Air Room Air BMI result Body Mass Index 25.4 vital signs have been reviewed as normal and appeared to be correct. Blood pressure normal. Heart rate 104. Respiration rate normal. Temperature normal. Oxygen saturation normal. Appearance: Alert. Oriented X3. No acute distress. Head: Normal external exam. Normocephalic. Atraumatic. Eyes: PERRLA. EOMI. Conjunctiva and sclera normal. Eyelids normal. ENT: Pharynx normal. Uvula midline. Moist mucous membranes. No lesions/ulcerations or masses noted on the tongue. Normal voice. No trismus noted. No drooling noted. No muffled voice noted. Neck: Normal inspection. Neck supple. FROM. No adenopathy. Thyroid Normal. No tracheal deviation noted. No crepitus is noted. No meningeal signs. No neck mass noted. No signs of trauma noted. CVS: Normal heart rate and rhythm. Heart sound normal. Pulses normal throughout. No murmurs/rales/gallops. Respiratory: No respiratory distress. Painless inspiration. Breath sounds normal. No wheezes/rales/rhonchi noted. No accessory muscle usage noted or decreased air movement noted. Abdomen: Soft and nontender. Bowel sounds normal in all 4 quadrants. No distention noted. No organomegaly noted. No visible injury noted. Back: No CVA tenderness. Full range of motion noted. Nontender. No signs of trauma. Patient neuro intact bilaterally and distally on all 4 extremities. Patient's reflexes intact bilaterally and distally on all 4 extremities. No rashes/lesion/induration/fluctuance or signs of infection noted. Skin: Skin warm and dry. Normal skin color. Normal skin turgor. No rashes/lesions/lacerations noted. Extremities: patient with tenderness palpation around the surgical scar of the left stump with soft tissue swelling/ tenderness palpation and purulent drainage with erythema noted. No streaking is noted. No obvious fluctuance or obvious abscess noted at this time. No induration is noted. Patient moving all other extremities no signs infection to all other extremities although she is noted to have track alarcon. Neuro: Oriented X 3. No motor deficit. No sensory deficit. No focal neuro deficits noted. CN's II-XII intact bilaterally? Course Course Course Narrative: RME: 52-year-old female with past medical history of asthma, COPD, diabetes, GERD, cardiomyopathy, osteomyelitis, presenting to the ED c/o LLE stump leakage x today. Patient was seen & tx in the ED yesterday, started on Abx for PNA LLE BKA with steristrips intact, clear drainage noted, no erythema/warmth. No fluctuance/induration Labs unremarkable yesterday Full HPI, ROS and PE to be performed by primary ED provider. Reevaluation(s) Reevaluation #1: 52yoF with a PMHx Sig for asthma, COPD, diabetes, hypertension, ischemic cardiomyopathy, GERD, PAD, osteomyelitis of left foot s/p BKA on 09/20/[address] Catnu who is presenting to the ER with complaints of worsening pain to her left [id number]-ptl-[id number] amputation /stump over the past few days worse today. Reports that she was seen here yesterday and started on some antibiotics for possible pneumonia. It appears that the patient may likely have a cellulitis to her left BKA stump where the surgical scar is located. She does have some clear/ purulent thin discharge noted. No streaking/induration/ fluctuance. on differential was also abscess versus osteo versus septic joint although less likely. Plan: Labs, blood cultures, lactic acid and ultrasound of her left stump area to evaluate for possible abscess and re-evaluate. Time: 12:55 Reevaluation #2: Labs reviewed patient with baseline anemia which is similar compared to prior. Low platelet count 138 which is similar compared to prior. Mild hyponatremia with a sodium of 135. Potassium 5.3 this is elevated. BUN 20 this is similar compared to prior. Random glucose is 640. Lactic acid 6.1. Total bilirubin 2.1 which is chronic. Alkaline phosphate 132 which is chronic. CRP 0.59 which is elevated. Total protein 6.4. Otherwise all other labs are within normal limits. Plan: At this time more IV fluids will be added for sepsis most likely related to a cellulitis infection as ultrasound was negative for abscess. Will also provide Rocephin as patient is allergic to penicillins along with vancomycin. Due to patient's hyperglycemia will add an acetone level. Patient also received 10 units of IV insulin. Also ordered a CT scan of left lower extremity with IV contrast. Will provide pain control with oxycodone 5 mg will re-evaluate. Time: 14:34 Reevaluation #3: focused exam performed at this time. CT scan of left lower extremity return and revealed soft tissue swelling no organized collection to indicate abscess. There is also no obvious evidence of osteomyelitis on this CT scan. I recommended admission for possible cellulitis with sepsis to her left stump although patient is refusing reports that she would rather go home due to she has a nurse that takes good care of her at home and her nurse and she will make sure that she is taking the antibiotics. I explained to her that she is showing signs of sepsis and patient understand she still wants to go home. She is alert oriented x3. Able to make her own medical decisions. Therefore at this time patient will be discharged against medical advice with doxycycline and Keflex and a short course of some pain med with instructions to follow-up with the general surgeon Dr. Cantu and the [facility] and to return if she has any new or worsening symptoms over the next few days. Patient understands agrees with this plan. Time: 16:30 Medications Administered Discontinued Medications Generic Name Dose Route Start Last Admin Trade Name Freq PRN Reason Stop Dose Admin Hydromorphone HCl 1 mg 10/21/22 17:25 10/21/22 17:35 Hydromorphone Hcl 1 Mg/Ml Syringe IVPUSH 10/21/22 17:26 1 mg ONCE ONE Administration Protocol Sodium Chloride 1,769.01 mls @ 1,769.01 mls/hr 10/21/22 14:28 10/21/22 15:19 Ns 30 ml/kg infuse over 1 hr (1769.01 ml) 10/21/22 15:27 1,769.01 mls/hr IV Administration .Q1H STA Ceftriaxone Sodium 1 gm/ 50 mls @ 100 mls/hr 10/21/22 14:34 10/21/22 15:40 Sodium Chloride IV 10/21/22 15:03 100 mls/hr ONCE ONE Infusion Vancomycin HCl 1,500 mg/ 500 mls @ 333.333 mls/hr 10/21/22 14:35 10/21/22 1 7:15 Sodium Chloride IV 10/21/22 16:04 Infused ONCE ONE Infusion Insulin Human Regular 10 unit 10/21/22 14:36 10/21/22 15:21 Insulin Regular, Human 100 Unit/Ml 3 Ml Vial IVPUSH 10/21/22 14:37 10 unit ONCE ONE Administration Iohexol 100 ml 10/21/22 15:07 10/21/22 15:08 Iohexol 350 Mg/Ml 100 Ml Infus..Btl IV 10/21/22 15:08 90 ml ONCE ONE Administration Oxycodone HCl 5 mg 10/21/22 15:25 10/21/22 15:30 Oxycodone Hcl Immed Release 5 Mg Tablet PO 10/21/22 15:26 5 mg ONCE ONE Administration Medical Decision Making Admission/Observation Consideration of admission/observation: Escalation of care including admission/observation considered Patient will need to be admitted for cellulitis with sepsis Although patient refusing and even against medical advice at this time Consult Healthcare Provider Management of the patient was discussed with: Hospitalist ( Dr. Umaña who was reviewing the patient's chart and was possibly going to admit the patient although patient does not want to be admitted) Lab Data MDM Lab Attestation statement: I reviewed the patient's lab results. 10/21/22 13:58 10/21/22 13:58 Labs: Lab Results 10/21/22 10/21/22 10/21/22 Range/Units 13:58 13:58 13:58 WBC 8.9 (4.8-10.8) X10*3/uL RBC 4.77 (4.20-5.50) X10*6/uL Hgb 9.7 L (12.0-16.0) g/dl Hct 34.8 L (37.0-47.0) % MCV 73.0 L (80.0-98.0) fL MCH 20.3 L (27.0-33.0) pg MCHC 27.9 L (31.0-35.0) g/dl RDW 24.5 H (11.0-16.0) % Plt Count 138 L (160-400) X10*3/uL MPV Not Reportable Immature Gran % (Auto) 0.7 H (0.0-0.4) % Neut % (Auto) 93.1 H (45-73) % Lymph % (Auto) 4.8 L (20-40) % Weber % (Auto) 1.2 L (2-11) % Eos % (Auto) 0.0 (0-4) % Baso % (Auto) 0.2 (0-2) % Lymph # (Auto) 0.4 L (1.2-4.9) X10*3/uL Weber # (Auto) 0.1 (0.1-1.2) X10*3/uL Eos # (Auto) 0.0 (0.0-0.4) X10*3/uL Baso # (Auto) 0.0 (0.0-0.2) X10*3/uL Abs Immat Gran (auto) 0.06 H (0.00-0.03) X10*3/uL Absolute Neuts (auto) 8.3 (2.0-8.3) x10*3/uL Absolute Nucleated RBC 0.020 H (0.0-0.012) X10*3/uL Nucleated RBC % (auto) 0.2 (0.0-0.2) /100WBC Smear Tech's Comments VERIFIED ESR 3 (0-20) MM/HR PT (10.0-13.1) SEC INR (0.9-1.1) Sodium 130 L (135-145) mmol/L Potassium 5.3 H (3.3-5.1) mmol/L Chloride 97 (96-108) mmol/L Carbon Dioxide 22 (22-29) mmol/L Anion Gap 16 (12-20) BUN 20 H (9-16) mg/dL Creatinine 1.19 (0.5-1.4) mg/dL Estim Creat Clear Calc 44.9 Estimated GFR 48 Random Glucose 640 H* (60-115) mg/dL Lactic Acid (0.5-2.0) mmol/L Lactic Acid F/U @ 2Hr (0.5-2.0) mmol/L Calcium 8.8 (8.4-10.2) mg/dL Magnesium 1.8 (1.6-2.6) mg/dL Total Bilirubin 2.1 H (0.0-1.0) mg/dL AST 7 (5-31) U/L ALT 16 (0-31) U/L Alkaline Phosphatase 132 H (39-117) U/L C-Reactive Protein 0.59 H (< or = 0.50) mg/dL Total Protein 6.4 L (6.5-8.0) g/dL Albumin 3.7 (3.5-5.0) g/dL Urine Color Urine Appearance Urine pH (5.0-9.0) Ur Specific [place] (1.005-1.025) Urine Protein (Neg-Trace) mg/dL Urine Glucose (UA) (Negative) mg/dL Urine Ketones (Negative) mg/dL Urine Blood (Negative) Urine Nitrite (Negative) Ur Leukocyte Esterase (Negative) Urine RBC (0-2) /HPF Urine WBC (0-5) /HPF Ur Squamous Epith Cells (0-2) /HPF Urine Bacteria (None Seen) Hyaline Casts (0-2) /LPF Acetone, Qual Negative (Negative) COVID-19 (KATHLEEN) (Negative) COVID-19 Clin Com 10/21/22 10/21/22 10/21/22 Range/Units 13:58 13:58 16:30 WBC (4.8-10.8) X10*3/uL RBC (4.20-5.50) X10*6/uL Hgb (12.0-16.0) g/dl Hct (37.0-47.0) % MCV (80.0-98.0) fL MCH (27.0-33.0) pg MCHC (31.0-35.0) g/dl RDW (11.0-16.0) % Plt Count (160-400) X10*3/uL MPV Immature Gran % (Auto) (0.0-0.4) % Neut % (Auto) (45-73) % Lymph % (Auto) (20-40) % Weber % (Auto) (2-11) % Eos % (Auto) (0-4) % Baso % (Auto) (0-2) % Lymph # (Auto) (1.2-4.9) X10*3/uL Weber # (Auto) (0.1-1.2) X10*3/uL Eos # (Auto) (0.0-0.4) X10*3/uL Baso # (Auto) (0.0-0.2) X10*3/uL Abs Immat Gran (auto) (0.00-0.03) X10*3/uL Absolute Neuts (auto) (2.0-8.3) x10*3/uL Absolute Nucleated RBC (0.0-0.012) X10*3/uL Nucleated RBC % (auto) (0.0-0.2) /100WBC Smear Tech's Comments ESR (0-20) MM/HR PT 16.5 H (10.0-13.1) SEC INR 1.4 H (0.9-1.1) Sodium (135-145) mmol/L Potassium (3.3-5.1) mmol/L Chloride (96-108) mmol/L Carbon Dioxide (22-29) mmol/L Anion Gap (12-20) BUN (9-16) mg/dL Creatinine (0.5-1.4) mg/dL Estim Creat Clear Calc Estimated GFR Random Glucose (60-115) mg/dL Lactic Acid 6.1 H* (0.5-2.0) mmol/L Lactic Acid F/U @ 2Hr 5.5 H* (0.5-2.0) mmol/L Calcium (8.4-10.2) mg/dL Magnesium (1.6-2.6) mg/dL Total Bilirubin (0.0-1.0) mg/dL AST (5-31) U/L ALT (0-31) U/L Alkaline Phosphatase (39-117) U/L C-Reactive Protein (< or = 0.50) mg/dL Total Protein (6.5-8.0) g/dL Albumin (3.5-5.0) g/dL Urine Color Urine Appearance Urine pH (5.0-9.0) Ur Specific [place] (1.005-1.025) Urine Protein (Neg-Trace) mg/dL Urine Glucose (UA) (Negative) mg/dL Urine Ketones (Negative) mg/dL Urine Blood (Negative) Urine Nitrite (Negative) Ur Leukocyte Esterase (Negative) Urine RBC (0-2) /HPF Urine WBC (0-5) /HPF Ur Squamous Epith Cells (0-2) /HPF Urine Bacteria (None Seen) Hyaline Casts (0-2) /LPF Acetone, Qual (Negative) COVID-19 (KATHLEEN) (Negative) COVID-19 Clin Com 10/21/22 10/21/22 Range/Units 17:21 17:21 WBC (4.8-10.8) X10*3/uL RBC (4.20-5.50) X10*6/uL Hgb (12.0-16.0) g/dl Hct (37.0-47.0) % MCV (80.0-98.0) fL MCH (27.0-33.0) pg MCHC (31.0-35.0) g/dl RDW (11.0-16.0) % Plt Count (160-400) X10*3/uL MPV Immature Gran % (Auto) (0.0-0.4) % Neut % (Auto) (45-73) % Lymph % (Auto) (20-40) % Weber % (Auto) (2-11) % Eos % (Auto) (0-4) % Baso % (Auto) (0-2) % Lymph # (Auto) (1.2-4.9) X10*3/uL Weber # (Auto) (0.1-1.2) X10*3/uL Eos # (Auto) (0.0-0.4) X10*3/uL Baso # (Auto) (0.0-0.2) X10*3/uL Abs Immat Gran (auto) (0.00-0.03) X10*3/uL Absolute Neuts (auto) (2.0-8.3) x10*3/uL Absolute Nucleated RBC (0.0-0.012) X10*3/uL Nucleated RBC % (auto) (0.0-0.2) /100WBC Smear Tech's Comments ESR (0-20) MM/HR PT (10.0-13.1) SEC INR (0.9-1.1) Sodium (135-145) mmol/L Potassium (3.3-5.1) mmol/L Chloride (96-108) mmol/L Carbon Dioxide (22-29) mmol/L Anion Gap (12-20) BUN (9-16) mg/dL Creatinine (0.5-1.4) mg/dL Estim Creat Clear Calc Estimated GFR Random Glucose (60-115) mg/dL Lactic Acid (0.5-2.0) mmol/L Lactic Acid F/U @ 2Hr (0.5-2.0) mmol/L Calcium (8.4-10.2) mg/dL Magnesium (1.6-2.6) mg/dL Total Bilirubin (0.0-1.0) mg/dL AST (5-31) U/L ALT (0-31) U/L Alkaline Phosphatase (39-117) U/L C-Reactive Protein (< or = 0.50) mg/dL Total Protein (6.5-8.0) g/dL Albumin (3.5-5.0) g/dL Urine Color Yellow Urine Appearance Clear Urine pH 5.0 (5.0-9.0) Ur Specific [place] >= 1.030 H (1.005-1.025) Urine Protein 30 (1+) H (Neg-Trace) mg/dL Urine Glucose (UA) >=1000 H (Negative) mg/dL Urine Ketones Negative (Negative) mg/dL Urine Blood Negative (Negative) Urine Nitrite Negative (Negative) Ur Leukocyte Esterase Negative (Negative) Urine RBC 0-2 (0-2) /HPF Urine WBC 0-5 (0-5) /HPF Ur Squamous Epith Cells 6-10 (0-2) /HPF Urine Bacteria Trace (None Seen) Hyaline Casts 0-2 (0-2) /LPF Acetone, Qual (Negative) COVID-19 (KATHLEEN) Negative (Negative) COVID-19 Clin Com See Note Independent Interpretation I performed an independent interpretation of an: Ultrasound ( ultrasound reviewed by myself agreeable radiologist report no evidence of abscess at this time) and CT Scan Radiology Impression Discussion of test interpretation with radiology: I have reviewed the radiologist's reading. Radiologist Impression: Attending Dr Ordering Physician: Bethany Clay Date of Service: 10/21/22 Procedure(s): US extremity nonvascular Accession Number(s): [id number] cc: Bethany Clay~ EXAMINATION: TARGETED ULTRASOUND EXAMINATION TO LEFT [id number] AMPUTATION STUMP. CLINICAL INFORMATION: Question abscess to left BKA stump. Redness, swelling, and drainage. COMPARISON: None. TECHNIQUE: Targeted ultrasound evaluation to left [id number] amputation stump. FINDINGS: Scanning demonstrates edematous change throughout the tissues. No abscess collection is appreciated. US/US extremity nonvascular IMPRESSION: Edema within the tissues of left BKA stump without evidence of abscess. FINDINGS: Patient is status post below-knee amputation, at the level of the proximal tibial diaphysis. There is a soft tissue swelling and edema in the amputation stump. No organized fluid collection or peripherally enhancing abscess is seen. There are foci of increased density in the soft tissue/muscles around the amputation margin. It is uncertain if this represents areas of enhancement, dystrophic calcification/ossification, vascularity. No significant air is seen in the soft tissues. There is prominent circumferential soft tissue swelling and subcutaneous stranding in the visualized femur, tibia, which could reflect edema or cellulitis. No organized fluid collection is seen. No evidence of definite erosive changes or osteolysis in the amputation margin of the tibia to suggest definite osteomyelitis. Subtle bony irregularity of the distal amputation margin of the fibula, could be postsurgical, but osteolysis from osteomyelitis cannot be excluded. No evidence of fracture. Normal knee joint articulation. Joint spaces are maintained. Trace suprapatellar joint fluid. CT/CT lower leg LT w IV con IMPRESSION: Status post below-knee amputation. ? Soft tissue swelling and edema of the left BKA stump. No organized fluid collection or peripherally enhancing abscess is seen. Densities in the soft tissues near the amputation margin, could represent dystrophic changes, prominent vascularity or soft tissue enhancement. ? No evidence of erosions or osteolysis the distal tibial amputation margin. Subtle irregularity of the distal fibula patient margin, could reflect postsurgical changes, however osteomyelitis cannot be excluded. Further evaluation with MRI as clinically warranted. ? Circumferential soft tissue swelling and subcutaneous edema or cellulitis in the distal tibia and the visualized femur. ? Additional findings and details as above. Independent Historian Clinical information obtained from an independent historian. History obtained from or confirmed by: Spouse External Record Review External record reviewed: Inpatient record, Office record, Outpatient record, Prior outpatient labs, Prior outpatient radiology, Primary care record and Outside ED record I viewed patient's all prior inpatient/ outpatient and prior ED visits/ labs/imaging and discharge summaries. Appears that patient was discharged for yesterday for possible pneumonia. Had a negative duplex ultrasound. Prescription Management I considered prescription management with: Pain Medication and Antibiotic Chronic Conditions Patient?s care impacted by: Diabetes, Hypertension and Other ( Osteomyelitis with BKA of left extremity in September of [address] Cantu) Critical Care Time Critical Care Time Critical Care Time: Yes Total Critical Care Time: 60 Attestation: I personally attest to this time spent taking care of the patient Discharge Plan Discharge Clinical Impression: Cellulitis of left lower extremity, Acute hyperglycemia, Acute hyperkalemia, Sepsis, Left against medical advice Patient Disposition: Left Against Medical Advice Instructions: Cellulitis (ED), Hyperkalemia (ED), Against Medical Advice (ED), Diabetic Hyperglycemia (ED) Additional Instructions: I recommended admission and we were going to admit to although you requested to be discharged on antibiotics due to you do not like being in hospitals I explained to that you do have an infection to her left stump. Your potassium and glucose level was high. We did give you fluids and insulin. if he develops any new or worsening symptoms which include fevers, chills, worsening redness or streaking/ redness going up the leg following a vein new need to return immediately. You should [facility] with [facility] and your general surgeon I your earliest convenience. He will be placed on 2 antibiotics 1 includes doxycycline this can cause a severe sunburn therefore please were had or sun block while on this antibiotic. You will also be placed on a 2nd antibiotic. please take these antibiotics as prescribed do not skip a dose. Return if he developed any worsening symptoms. Prescriptions: New doxycycline monohydrate 100 mg tablet 100 mg PO BID 10 Days Qty: 20 0RF cephalexin 500 mg capsule 500 mg PO Q6H 10 Days Qty: 40 0RF oxycodone 5 mg tablet 5 mg PO Q6H PRN (Reason: pain) Qty: 7 0RF Rx Instructions: Partial Fill upon patient request. No Action oxycodone 5 mg tablet 5 mg PO Q6H PRN (Reason: pain) Qty: 20 0RF Rx Instructions: Partial Fill upon patient request. furosemide 40 mg Tablet 40 mg PO BID Qty: 30 0RF albuterol sulfate 2.5 mg /3 mL (0.083 %) solution for nebulization 1 vial inhalation Q6H PRN (Reason: Wheezing) Qty: 90 0RF lisinopril 20 mg tablet 20 mg PO DAILY Qty: 30 0RF gabapentin 300 mg capsule 2 cap PO BID Qty: 120 0RF montelukast 10 mg tablet 1 tab PO BEDTIME Qty: 30 0RF albuterol sulfate [Ventolin HFA] 90 mcg/actuation HFA aerosol inhaler 1 puff INHALATION Q4H PRN (Reason: Wheezing) Qty: 1 0RF Incruse Ellipta 62.5 mcg/actuation blister with device 1 puff PO DAILY Qty: 1 0RF prednisone 20 mg tablet 40 mg PO DAILY Qty: 10 0RF atorvastatin 80 mg Tablet 80 mg PO BEDTIME 30 Days Qty: 30 0RF acetaminophen 325 mg Tablet 650 mg PO Q8H PRN (Reason: Pain, Mild (Pain Scale 1-3)) 30 Days Qty: 90 0RF polyethylene glycol 3350 17 gram Powder In Packet 17 g PO DAILY PRN (Reason: Constipation) 5 Days Qty: 30 0RF aspirin 81 mg Tablet,Delayed Release (Dr/Ec) 81 mg PO DAILY 30 Days Qty: 30 0RF carvedilol 3.125 mg Tablet 3.125 mg PO BID 30 Days Qty: 60 0RF Protocol: Hold for SBP/HR < HOLD for SBP < : 90 HOLD for HR < : 60 gabapentin 100 mg Capsule 200 mg PO BID 10 Days Qty: 40 0RF Brilinta 90 mg Tablet 90 mg PO BID 30 Days Qty: 60 0RF ondansetron 4 mg tablet,disintegrating 4 mg PO Q8H 3 Days Qty: 9 0RF ipratropium-albuterol 0.5 mg-3 mg(2.5 mg base)/3 mL solution for nebulization 3 ml inhalation TID Qty: 90 0RF prednisone 20 mg tablet 20 mg PO DAILY Qty: 5 0RF azithromycin 250 mg tablet 250 mg PO DAILY 4 Days Qty: 4 0RF Rx Instructions: start on day 2 of therapy doxycycline hyclate 100 mg capsule 100 mg PO BID Qty: 9 0RF prednisone 50 mg tablet 50 mg PO DAILY Qty: 4 0RF Referrals: [facility] [place] [facility] [Provider Group] ( call to make a follow-up appointment within the next few days) Luis Miguel Cantu MD [Physician] - ( call to make a follow-up appointment within the next few days)
[2022-10-21 14:09] LABS: Basophils Percent Auto 0.2 % (0-2); Hematocrit 34.8 % (37.0-47.0); Hemoglobin 9.7 g/dl (12.0-16.0); Imm Gran Abs Auto 0.06 X10*3/uL (0.00-0.03); Imm Gran Pct Auto 0.7 % (0.0-0.4); Lymphocytes Absolute Auto 0.4 X10*3/uL (1.2-4.9); Lymphocytes Percent Auto 4.8 % (20-40); MANUAL DIFF FLAG SCAN; Mean Corpuscular HGB Conc 27.9 g/dl (31.0-35.0); Mean Corpuscular Hemoglobin 20.3 pg (27.0-33.0); Monocytes Absolute Auto 0.1 X10*3/uL (0.1-1.2); Monocytes Percent Auto 1.2 % (2-11); NRBC Pct Auto 0.2 /100WBC (0.0-0.2); Neutrophils Absolute Auto 8.3 x10*3/uL (2.0-8.3); Neutrophils Percent Auto 93.1 % (45-73); Platelet Count 138 X10*3/uL (160-400); Red Blood Count 4.77 X10*6/uL (4.20-5.50); Red Cell Distribution Width 24.5 % (11.0-16.0); SCAN SMEAR FLAG 1; White Blood Count 8.9 X10*3/uL (4.8-10.8)
[2022-10-21 14:11] LABS: INTERNATIONAL NORM RATIO 1.4 (0.9-1.1); Prothrombin Time 16.5 SEC (10.0-13.1)
[2022-10-21 14:21] LABS: Lactic Acid 6.1 mmol/L (0.5-2.0)
[2022-10-21 14:29] LABS: Alanine Aminotransferase 16 U/L (0-31); Albumin Level 3.7 g/dL (3.5-5.0); Alkaline Phosphatase 132 U/L (39-117); Anion Gap 16 (12-20); Aspartate Amino Transferase 7 U/L (5-31); Bilirubin Total 2.1 mg/dL (0.0-1.0); Blood Urea Nitrogen 20 mg/dL (9-16); C Reactive Protein 0.59 mg/dL (< or = 0.50); Calcium 8.8 mg/dL (8.4-10.2); Carbon Dioxide 22 mmol/L (22-29); Chloride 97 mmol/L (96-108); Creatinine Clr Calc Pharmacy 44.9; Estimated Glomerular Filt Rate 48; Glucose Random 640 mg/dL (60-115); Magnesium 1.8 mg/dL (1.6-2.6); Potassium 5.3 mmol/L (3.3-5.1); Sodium 130 mmol/L (135-145); Total Protein 6.4 g/dL (6.5-8.0)
[2022-10-21 14:31] LABS: SLIDE REVIEW VERIFIED
[2022-10-21 14:52] LABS: Erythrocyte Sedimentation Rate 3 MM/HR (0-20)
[2022-10-21] MEDS: iohexoL 350 MG/ML 100 ML INFUS..BTL IV (15:08)
[2022-10-21] MEDS: 0.9 % Sodium Chloride 1,769.01 ML 1769.01 ML IV (15:19)
[2022-10-21] MEDS: cefTRIAXone sodium 1 GM in 0.9 % Sodium Chloride 50 ML IV (15:20)
[2022-10-21] MEDS: Insulin Regular, Human 100 UNIT/ML 3 ML VIAL 10 UNIT IVPUSH (15:21)
[2022-10-21] MEDS: oxyCODONE HCl Immed Release 5 MG TABLET PO (15:30)
[2022-10-21 15:32] VITALS: BP 138/84; PULSE 103; RESP 16; O2SAT 100
--- NOTE | 2022-10-21 15:36 | PC.NURSE ---
Pt aox4 resting at the bedside. Reports left leg pain, 10/10. Medicated as ordered with pain medication and ab. No drug reactions noted.
[2022-10-21] MEDS: vancomycin HCL 1,500 MG in 0.9 % Sodium Chloride 500 ML 333.33 MG IV (15:41)
[2022-10-21 16:02] LABS: Reflex Lactate? Lactic Acid Added
[2022-10-21 16:28] LABS: Acetone, serum QL Negative (Negative)
[2022-10-21 17:09] LABS: ~Lactic Acid-LAB USE ONLY 5.5 mmol/L (0.5-2.0)
[2022-10-21] MEDS: HYDROmorphone HCl 1 MG/ML SYRINGE IVPUSH (17:35)
[2022-10-21 17:42] LABS: Appearance Urine Clear; Color Urine Yellow; Glucose Urine UA >=1000 mg/dL (Negative); Leukocyte Esterase Urine Negative (Negative); Nitrite Urine Negative (Negative); Specific Gravity - Urine >= 1.030 (1.005-1.025); UMIC TRIGGER UACC YES; Urine Blood Negative (Negative); Urine Ketones Negative (Negative); Urine Protein 30 (1+) mg/dL (Neg-Trace)
[2022-10-21 17:44] LABS: Bacteria Urine Trace (None Seen); Hyaline Casts Urine 0-2 /LPF (0-2); RBC Urine 0-2 /HPF (0-2); WBC Urine 0-5 /HPF (0-5)
[2022-10-21 17:52] LABS: COVID-19 Test Negative (Negative); IDNOW Serial# 08D9AD1C
[2022-10-21 18:37] LABS: Reflex Lactate? 2 Y
== END 2022-10-21 18:40 | disposition left against medical advice (07) ==
PROVIDERS: Physician Assistant Medical; Emergency Provider Emergency Medicine
DX: L03.116 Cellulitis of left lower limb (principal); A41.9 Sepsis, unspecified organism; E11.65 Type 2 diabetes mellitus with hyperglycemia; E87.5 Hyperkalemia; J18.9 Pneumonia, unspecified organism; R60.0 Localized edema; I10 Essential (primary) hypertension; Z89.512 Acquired absence of left leg below knee; Z20.822 Contact with and (suspected) exposure to COVID-19; Z79.82 Long term (current) use of aspirin; Z79.02 Long term (current) use of antithrombotics/antiplatelets; Z79.899 Other long term (current) drug therapy
CPT/HCPCS: 36415; 73701; 76882; 80053; 81001; 82009; 83605; 83735; 85025; 85610; 85652; 86140; 87040; 87635; 96365; 96366; 96367; 96375; 99284; 99285; J0696; J1170; J3371; Q9967

== ENCOUNTER 2022-10-22 11:37 | Emergency (ER) | payer OTHER, SELFPAY ==
--- NOTE | ~2022-10-22 | XR_ITS ---
EXAMINATION: XR CHEST CLINICAL INFORMATION: Cough. Rule out pneumonia. COMPARISON: Previous chest x-ray 10/20/2022 TECHNIQUE: 2 views of the chest were obtained. FINDINGS: The cardiac silhouette is enlarged but stable. Hilar and mediastinal contours are unremarkable. There are small bilateral pleural effusions, right greater than left. There may be posterior lower lobe consolidation, probably on the right. Bony structures are unremarkable. XR/XR chest 2V IMPRESSION: Small bilateral pleural effusions, right greater than left. Question posterior lower lobe consolidation, probably on the right.
[2022-10-22 11:47] VITALS: BP 138/72; BP 140/80; PULSE 103; PULSE 110; RESP 20; TEMP 36.8; O2SAT 100; O2SAT 99; BMI 28.6
[2022-10-22] MEDS: 0.9 % Sodium Chloride 1,000 ML 999 ML IVCONT (13:22)
[2022-10-22] MEDS: cefTRIAXone sodium 2 GM in 0.9 % Sodium Chloride 50 ML IV (13:22)
[2022-10-22 13:29] LABS: MANUAL DIFF FLAG NO
[2022-10-22 13:33] LABS: Basophils Percent Auto 0.2 % (0-2); Eosinophils Absolute Auto 0.1 X10*3/uL (0.0-0.4); Eosinophils Percent Auto 0.6 % (0-4); Hematocrit 33.1 % (37.0-47.0); Hemoglobin 9.5 g/dl (12.0-16.0); Imm Gran Abs Auto 0.05 X10*3/uL (0.00-0.03); Imm Gran Pct Auto 0.6 % (0.0-0.4); Lymphocytes Absolute Auto 1.5 X10*3/uL (1.2-4.9); Mean Corpuscular HGB Conc 28.7 g/dl (31.0-35.0); Mean Corpuscular Hemoglobin 20.4 pg (27.0-33.0); Monocytes Absolute Auto 0.5 X10*3/uL (0.1-1.2); Monocytes Percent Auto 5.4 % (2-11); NRBC Pct Auto 0.7 /100WBC (0.0-0.2); Neutrophils Absolute Auto 6.6 x10*3/uL (2.0-8.3); Neutrophils Percent Auto 76.2 % (45-73); Platelet Count 127 X10*3/uL (160-400); Red Blood Count 4.66 X10*6/uL (4.20-5.50); Red Cell Distribution Width 24.3 % (11.0-16.0); White Blood Count 8.6 X10*3/uL (4.8-10.8)
[2022-10-22 13:42] VITALS: BP 138/87; PULSE 98; RESP 18; O2SAT 100
[2022-10-22 13:43] LABS: Ethanol < 10 mg/dL
[2022-10-22] MEDS: ondansetron HCL 4 MG/2 ML VIAL IVPUSH (13:43)
[2022-10-22] MEDS: Morphine Sulfate 4 MG/ML CARTRIDGE IVPUSH (13:43)
[2022-10-22 13:45] LABS: Lactic Acid 3.6 mmol/L (0.5-2.0)
[2022-10-22 13:48] LABS: Alanine Aminotransferase 14 U/L (0-31); Albumin Level 3.5 g/dL (3.5-5.0); Alkaline Phosphatase 113 U/L (39-117); Anion Gap 14 (12-20); Aspartate Amino Transferase 7 U/L (5-31); Bilirubin Total 1.7 mg/dL (0.0-1.0); Blood Urea Nitrogen 22 mg/dL (9-16); C Reactive Protein 0.54 mg/dL (< or = 0.50); Calcium 9.4 mg/dL (8.4-10.2); Carbon Dioxide 25 mmol/L (22-29); Chloride 102 mmol/L (96-108); Creatinine Clr Calc Pharmacy 54.1; Estimated Glomerular Filt Rate 48; Glucose Random 302 mg/dL (60-115); Magnesium 1.9 mg/dL (1.6-2.6); Potassium 5.1 mmol/L (3.3-5.1); Sodium 136 mmol/L (135-145)
[2022-10-22 14:11] LABS: Influenza A PCR NEGATIVE (Negative); Influenza B PCR NEGATIVE (Negative); Resp Syncy Virus RNA Qual PCR NEGATIVE (Negative); SARS COV2 PCR INHOUSE NEGATIVE (Negative)
--- NOTE | 2022-10-22 14:12 | ED_ITS ---
HPI - General Adult General Chief complaint: General Medical Stated complaint: Nausea, weakness, 402 BG per EMS Time Seen by Provider: 10/22/22 11:51 Source: patient and EMS Mode of arrival: EMS Limitations: no limitations History of Present Illness HPI narrative: 52yoF with a PMHx Sig for asthma, COPD, diabetes,? hypertension, ischemic cardiomyopathy, GERD,? PAD, osteomyelitis of left foot s/p BKA on 09/20/[address] Cantu who is presenting to the ER with complaints of persistent pain to her left [id number]-ojri amputation /stump over the past few days along with cough with wheezing/shortness of breath.? She was seen here on 10/20/2022 and diagnosed with pneumonia sent home on antibiotics and she was seen here again yesterday by myself diagnosed with cellulitis started on doxycycline and Keflex as patient requested to leave against medical advice after she was offered admission. Reports today she would like to be admitted. She reports her symptoms are not worse they are the same as the past few days. She reports she did not take her antibiotics today due to she came here. She did give herself a breathing treatment prior to arrival in she reports she felt much better from her wheezing/chest tightness from this. She denies any fevers, chills, chest pain, dyspnea on exertion orthopnea, recent falls or trauma, dizziness or any other symptoms complaints or concerns at this time. MD complaint: Left BKA stump pain, cough/chest tightness and wheezing Related Data Previous Rx's Medication Instructions Recorded acetaminophen 325 mg tablet 650 mg PO Q8H PRN Pain, Mild (Pain 09/21/22 Scale 1-3) 30 days #90 tabs aspirin 81 mg tablet,delayed 81 mg PO DAILY 30 days #30 tabs 09/21/22 release atorvastatin 80 mg tablet 80 mg PO BEDTIME 30 days #30 tabs 09/21/22 carvedilol 3.125 mg tablet 3.125 mg PO BID 30 days #60 tabs 09/21/22 gabapentin 100 mg capsule 200 mg PO BID 10 days #40 caps 09/21/22 polyethylene glycol 3350 17 gram 17 g PO DAILY PRN Constipation 5 09/21/22 oral powder packet days #30 ea ticagrelor 90 mg tablet (Brilinta) 90 mg PO BID 30 days #60 tabs 09/21/22 ondansetron 4 mg disintegrating 4 mg PO Q8H 3 days #9 tabs 09/24/22 tablet albuterol sulfate 2.5 mg/3 mL 1 vial inhalation Q6H PRN Wheezing 09/29/22 (0.083 %) solution for nebulization #90 mL albuterol sulfate 90 mcg/actuation 1 puff inhalation Q4H PRN Wheezing 09/29/22 aerosol inhaler (Ventolin HFA) #1 g furosemide 40 mg tablet 40 mg PO BID #30 tabs 09/29/22 gabapentin 300 mg capsule 2 cap PO BID #120 caps 09/29/22 lisinopril 20 mg tablet 20 mg PO DAILY #30 tabs 09/29/22 montelukast 10 mg tablet 1 tab PO BEDTIME #30 tabs 09/29/22 umeclidinium 62.5 mcg/actuation 1 puff PO DAILY #1 ea 09/29/22 blister powder for inhalation (Incruse Ellipta) prednisone 20 mg tablet 40 mg PO DAILY #10 tabs 10/05/22 ipratropium 0.5 mg-albuterol 3 mg 3 ml inhalation TID #90 mL 10/14/22 (2.5 mg base)/3 mL nebulization soln prednisone 20 mg tablet 20 mg PO DAILY #5 tabs 10/14/22 azithromycin 250 mg tablet 250 mg PO DAILY 4 days #4 tabs 10/21/22 cephalexin 500 mg capsule 500 mg PO Q6H 10 days #40 caps 10/21/22 doxycycline hyclate 100 mg capsule 100 mg PO BID #9 caps 10/21/22 doxycycline monohydrate 100 mg 100 mg PO BID 10 days #20 tabs 10/21/22 tablet oxycodone 5 mg tablet 5 mg PO Q6H PRN pain #20 tabs 10/21/22 oxycodone 5 mg tablet 5 mg PO Q6H PRN pain #7 tabs 10/21/22 prednisone 50 mg tablet 50 mg PO DAILY #4 tabs 10/21/22 Allergies Allergy/AdvReac Type Severity Reaction Status Date / Time Penicillins [PENICILLINS] Allergy Severe RASH Verified 10/07/22 09:49 amoxicillin [AMOXICILLIN] Allergy Intermediate HIVES Verified 10/07/22 09:49 codeine Allergy Itching Verified 10/07/22 09:49 perflutren [From Definity] AdvReac Back Pain Verified 10/07/22 09:49 Review of Systems Review of Systems: Constitutional : No Weight loss, No Fever, No Chills, No Night Sweats, No Fatigue, No Malaise ENT/Mouth : No Hearing loss, No Ear Pain, No Nasal Congestion, No Sinus Pain, No Hoarseness, No sore throat, No Rhinorrhea, No Swallowing Difficulty Eyes: No Eye Pain, No Swelling, No Redness, No Foreign Body, No Discharge, No Vision Changes Cardiovascular : No Chest Pain, No SOB, No Dyspnea on Exertion, No Orthopnea, No Edema, No Palpitations Respiratory : + Cough, + Sputum, + Wheezing, No Smoke Exposure, No Dyspnea Gastrointestinal : No Nausea, No Vomiting, No Diarrhea, No Constipation, No abdominal Pain, No Hematochezia, No Melena Genitourinary : no irregular bleeding, No Dysuria, No Urinary Frequency, No Hematuria, No Urinary Incontinence, No Urgency, No Flank Pain, No Urinary Flow Changes, No Hesitancy Musculoskeletal : + joint pain, No Myalgias, No Joint Swelling Skin : No Skin Lesions, No rash Neuro : No Weakness, No Numbness, No Paresthesias, No Loss of Consciousness, No Dizziness, No Headache Psych : No Anxiety/Panic, No Depression, No SI/HI/AH/VH, No Social Issues, Heme/Lymph: No Bruising, No Bleeding,No Lymphadenopathy Endocrine : No Polyuria, No Polydipsia, No Temperature Intolerance Yes all other systems are reviewed and are negative PMFSH Past Medical History Attestation statement: The following information was validated with the patient. Source: old records reviewed, obtained from family and nursing notes reviewed Medical History Asthma Atherosclerotic cardiovascular disease Atrial tachycardia Below-knee amputation of left lower extremity Cellulitis in diabetic foot COPD (chronic obstructive pulmonary disease) Coronary artery disease COVID-19 vaccine series completed Diabetes Diabetic foot infection Diabetic foot infection Diabetic foot ulcer Diabetic toe ulcer Essential hypertension GERD (gastroesophageal reflux disease) Hyperglycemia due to diabetes mellitus Hypertension Ischemic cardiomyopathy Left against medical advice Left against medical advice Osteomyelitis Osteomyelitis 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 PAD (peripheral artery disease) Surgical History History of esophagogastroduodenoscopy (EGD) History of toe surgery (09/22/21) Status post below-knee amputation of left lower extremity (09/20/22) Family History Family History Mother Hx of CABG Sister CAD (coronary artery disease) Social History Social History Household Members: Family and Children Housing: Apartment Do you presently have visiting nurse or other home services: No Unable to assess alcohol history related to: Refusing to respond Alcohol intake: never Patient Tobacco Use Status: Current everyday Tobacco user Tobacco use type: Cigarette Cigarette Packs Per Day: 0.5 Cigarettes Per Day: 6 Years Smoked: 43 Smoked in Last 30 Days: Yes e-Cigarette/Vaping Use: Currently Using Second Hand Smoke Exposure: Yes Use of substances other than those prescribed or required for medical reasons: No Substance Use Type: Marijuana Advance Directives: Yes Advance Directives on File: Yes Advance Directives Date on File: 09/22/22 Patient : No service: No Current occupational status: disabled Physical Exam ED Vital Signs: Vital Signs - 24 hr 10/22/22 11:47 10/22/22 13:42 Temperature 98.3 F Pulse Rate 103 H 98 Respiratory Rate 20 18 Blood Pressure 138/72 138/87 Pulse Oximetry 100 100 Oxygen Delivery Method Room Air Room Air BMI result Body Mass Index 28.6 vital signs have been reviewed as normal and appeared to be correct. Blood pressure normal. Heart rate normal. Respiration rate normal. Temperature normal. Oxygen saturation normal. Appearance: Alert. Oriented X3. No acute distress. ? Head: Normal external exam. Normocephalic. Atraumatic.? Eyes: PERRLA. EOMI. Conjunctiva and sclera normal. Eyelids normal. ENT: Pharynx normal. Uvula midline. Moist mucous membranes.? No lesions/ulcerations or masses noted on the tongue.? Normal voice. No trismus noted.? No drooling noted.? No muffled voice noted. Neck: Normal inspection. Neck supple. FROM. No adenopathy. Thyroid Normal.? No tracheal deviation noted.? No crepitus is noted.? No meningeal signs. No neck mass noted.? No signs of trauma noted. CVS: Normal heart rate and rhythm. Heart sound normal. Pulses normal thro ughout.? No murmurs/rales/gallops. Respiratory: No respiratory distress. Painless inspiration. Breath sounds normal. No wheezes/rales/rhonchi noted. No? accessory muscle usage noted or decreased air movement noted. Abdomen: Soft and nontender. Bowel sounds normal in all 4 quadrants. No distention noted.? No organomegaly noted.? No visible injury noted. Back:? No CVA tenderness.? Full range of motion noted.? Nontender.? No signs of trauma.? Patient neuro intact bilaterally and distally on all 4 extremities.? Patient's reflexes intact bilaterally and distally on all 4 extremities.? No rashes/lesion/induration/fluctuance or signs of infection noted. Skin: Skin warm and dry.? Normal skin color.? Normal skin turgor. No rashes/lesions/lacerations noted. Extremities:? patient with tenderness palpation around the surgical scar of the left stump.? No streaking/fluctuance or purulent drainage noted at this time.? Exam is much more improved since yesterday. See pictures below. No obvious fluctuance or obvious abscess noted at this time.? No induration is noted.? Patient moving all other extremities no signs infection to all other extremities although she is noted to have track alarcon. Neuro: Oriented X 3.? No motor deficit.? No sensory deficit.? No focal neuro deficits noted. CN's II-XII intact bilaterally? Course Course Course Narrative: 52-year-old female with left BKA performed by Dr. Cantu in September of 2022 who was recently seen here today for yesterday diagnosed with pneumonia sent home on antibiotics then seen here again yesterday was offered admission for cellulitis although patient requested to leave AMA and was sent home with doxycycline Keflex reports she took last night although did not take any antibiotics this morning due to she was not feeling well. She reports that she is not having any worsening symptoms although her was upset that she did not stay for admission therefore she came here for possible admission. We repeated the patient's labs and patient's labs are actually improved her white blood cell count went from 8.9-8.6. She has her baseline anemia which is similar compared to prior. Platelet count is chronic at 01:27. Her ESR went from 3-2. Random glucose 302. Lactic acid went from 6.1-5.5 yesterday and 3.6 today. Therefore it has significantly improved. She may have a lactic acidosis type B from albuterol updrafts that she is receiving at home. Total bilirubin is 1.7 which is improved when compared to prior. CRP is improved when compared to prior today it is 0.54. Otherwise all other labs are within normal limits. Patient negative for COVID/RSV/flu. Chest x-ray revealed small bilateral pleural effusions right greater than left. Questioning posterior lower lobe consolidation probably on the right not confirm pneumonia. Although patient is already on antibiotics. I gave her IV fluids and a dose of IV Rocephin while she was here. I did tried a admit the patient to Dr. Umaña although he reports that her labs have improved and most likely the elevated lactic is related to type B from albuterol updrafts/chronic. Patient is comfortable going home as she has a nurse at home that gives her medications. at bedside understand and agrees with the plan. Instructed patient to return if any new or worsening symptoms. Medications Administered Discontinued Medications Generic Name Dose Route Start Last Admin Trade Name Freq PRN Reason Stop Dose Admin Sodium Chloride 1,000 mls @ 999 mls/hr 10/22/22 12:45 10/22/22 14:37 Ns IVCONT 10/22/22 13:45 Infused .Q1H1M MÓNICA Infusion Ceftriaxone Sodium 2 gm/ 50 mls @ 100 mls/hr 10/22/22 12:39 10/22/22 14:37 Sodium Chloride IV 10/22/22 13:08 Infused ONCE ONE Infusion Morphine Sulfate 4 mg 10/22/22 13:14 10/22/22 13:43 Morphine Sulfate 4 Mg/Ml Cartridge IVPUSH 10/22/22 13:15 4 mg ONCE ONE Administration Protocol Ondansetron HCl 4 mg 10/22/22 13:14 10/22/22 13:43 Ondansetron Hcl 4 Mg/2 Ml Vial IVPUSH 10/22/22 13:15 4 mg ONCE ONE Administration Medical Decision Making Admission/Observation Consideration of admission/observation: Escalation of care including admission/observation considered I considered admission although hospitalist does not believe patient needs admission criteria due to labs have improved significantly and lactic acid is most likely from type B from albuterol updrafts/chronic Consult Healthcare Provider Management of the patient was discussed with: Hospitalist (Dr. Umaña) Lab Data MDM Lab Attestation statement: I reviewed the patient's lab results. 10/22/22 13:01 10/22/22 13:01 Labs: Lab Results 10/22/22 10/22/22 10/22/22 Range/Units 12:59 13:01 13:01 WBC 8.6 (4.8-10.8) X10*3/uL RBC 4.66 (4.20-5.50) X10*6/uL Hgb 9.5 L (12.0-16.0) g/dl Hct 33.1 L (37.0-47.0) % MCV 71.0 L (80.0-98.0) fL MCH 20.4 L (27.0-33.0) pg MCHC 28.7 L (31.0-35.0) g/dl RDW 24.3 H (11.0-16.0) % Plt Count 127 L (160-400) X10*3/uL MPV Not Reportable Immature Gran % (Auto) 0.6 H (0.0-0.4) % Neut % (Auto) 76.2 H (45-73) % Lymph % (Auto) 17.0 L (20-40) % Rush % (Auto) 5.4 (2-11) % Eos % (Auto) 0.6 (0-4) % Baso % (Auto) 0.2 (0-2) % Lymph # (Auto) 1.5 (1.2-4.9) X10*3/uL Rush # (Auto) 0.5 (0.1-1.2) X10*3/uL Eos # (Auto) 0.1 (0.0-0.4) X10*3/uL Baso # (Auto) 0.0 (0.0-0.2) X10*3/uL Abs Immat Gran (auto) 0.05 H (0.00-0.03) X10*3/uL Absolute Neuts (auto) 6.6 (2.0-8.3) x10*3/uL Absolute Nucleated RBC 0.060 H (0.0-0.012) X10*3/uL Nucleated RBC % (auto) 0.7 H (0.0-0.2) /100WBC ESR 2 (0-20) MM/HR Sodium (135-145) mmol/L Potassium (3.3-5.1) mmol/L Chloride (96-108) mmol/L Carbon Dioxide (22-29) mmol/L Anion Gap (12-20) BUN (9-16) mg/dL Creatinine (0.5-1.4) mg/dL Estim Creat Clear Calc Estimated GFR Random Glucose (60-115) mg/dL Lactic Acid 3.6 H* (0.5-2.0) mmol/L Calcium (8.4-10.2) mg/dL Magnesium (1.6-2.6) mg/dL Total Bilirubin (0.0-1.0) mg/dL AST (5-31) U/L ALT (0-31) U/L Alkaline Phosphatase (39-117) U/L C-Reactive Protein (< or = 0.50) mg/dL Total Protein (6.5-8.0) g/dL Albumin (3.5-5.0) g/dL Ethyl Alcohol mg/dL Influenza Type A (PCR) (Negative) Influenza Type B (PCR) (Negative) RSV RNA Qual (PCR) (Negative) SARS-CoV-2 RNA (RT-PCR) (Negative) 10/22/22 10/22/22 10/22/22 Range/Units 13:01 13:01 13:01 WBC (4.8-10.8) X10*3/uL RBC (4.20-5.50) X10*6/uL Hgb (12.0-16.0) g/dl Hct (37.0-47.0) % MCV (80.0-98.0) fL MCH (27.0-33.0) pg MCHC (31.0-35.0) g/dl RDW (11.0-16.0) % Plt Count (160-400) X10*3/uL MPV Immature Gran % (Auto) (0.0-0.4) % Neut % (Auto) (45-73) % Lymph % (Auto) (20-40) % Rush % (Auto) (2-11) % Eos % (Auto) (0-4) % Baso % (Auto) (0-2) % Lymph # (Auto) (1.2-4.9) X10*3/uL Rush # (Auto) (0.1-1.2) X10*3/uL Eos # (Auto) (0.0-0.4) X10*3/uL Baso # (Auto) (0.0-0.2) X10*3/uL Abs Immat Gran (auto) (0.00-0.03) X10*3/uL Absolute Neuts (auto) (2.0-8.3) x10*3/uL Absolute Nucleated RBC (0.0-0.012) X10*3/uL Nucleated RBC % (auto) (0.0-0.2) /100WBC ESR (0-20) MM/HR Sodium 136 (135-145) mmol/L Potassium 5.1 (3.3-5.1) mmol/L Chloride 102 (96-108) mmol/L Carbon Dioxide 25 (22-29) mmol/L Anion Gap 14 (12-20) BUN 22 H (9-16) mg/dL Creatinine 1.18 (0.5-1.4) mg/dL Estim Creat Clear Calc 54.1 Estimated GFR 48 Random Glucose 302 H (60-115) mg/dL Lactic Acid (0.5-2.0) mmol/L Calcium 9.4 D (8.4-10.2) mg/dL Magnesium 1.9 (1.6-2.6) mg/dL Total Bilirubin 1.7 H (0.0-1.0) mg/dL AST 7 (5-31) U/L ALT 14 (0-31) U/L Alkaline Phosphatase 113 (39-117) U/L C-Reactive Protein 0.54 H (< or = 0.50) mg/dL Total Protein 6.0 L (6.5-8.0) g/dL Albumin 3.5 (3.5-5.0) g/dL Ethyl Alcohol < 10 mg/dL Influenza Type A (PCR) NEGATIVE (Negative) Influenza Type B (PCR) NEGATIVE (Negative) RSV RNA Qual (PCR) NEGATIVE (Negative) SARS-CoV-2 RNA (RT-PCR) NEGATIVE (Negative) Independent Interpretation I performed an independent interpretation of an: Plain X-Ray (X-ray reviewed by myself ago but with radiologist report) Radiology Impression Discussion of test interpretation with radiology: I have reviewed the radiologist's reading. Radiologist Impression: FINDINGS: The cardiac silhouette is enlarged but stable. Hilar and mediastinal contours are unremarkable. There are small bilateral pleural effusions, right greater than left. There may be posterior lower lobe consolidation, probably on the right. Bony structures are unremarkable. XR/XR chest 2V IMPRESSION: Small bilateral pleural effusions, right greater than left. Question posterior lower lobe consolidation, probably on the right. Independent Historian Clinical information obtained from an independent historian. History obtained from or confirmed by: Spouse External Record Review External record reviewed: Inpatient record, Office record, Outpatient record, Prior outpatient labs, Prior outpatient radiology, Primary care record and Outs jose ED record I reviewed all prior inpatient/outpatient labs and imaging and notes that are accessible in our system including the prior visits where the patient was seen here Prescription Management I considered prescription management with: Antibiotic (Patient was already prescribed doxycycline and Keflex explained to patient she should continue this treatment plan) Critical Care Time Critical Care Time Critical Care Time: Yes Total Critical Care Time: 60 Attestation: I personally attest to this time spent taking care of the patient Discharge Plan Discharge Clinical Impression: Cellulitis of left lower extremity, Bilateral pleural effusion, Bronchitis Patient Disposition: Home, Self-Care Instructions: Cellulitis (ED), Acute Bronchitis (ED), Pleural Effusion (ED) Additional Instructions: Your labs today were much better than yesterday. Therefore at this time will be discharged you you should continue taking her previously prescribed antibiotics that you refer scribe yesterday return if any new or worsening symptoms and follow up with her primary care provider/general surgeon Prescriptions: No Action oxycodone 5 mg tablet 5 mg PO Q6H PRN (Reason: pain) Qty: 20 0RF Rx Instructions: Partial Fill upon patient request. furosemide 40 mg Tablet 40 mg PO BID Qty: 30 0RF albuterol sulfate 2.5 mg /3 mL (0.083 %) solution for nebulization 1 vial inhalation Q6H PRN (Reason: Wheezing) Qty: 90 0RF lisinopril 20 mg tablet 20 mg PO DAILY Qty: 30 0RF gabapentin 300 mg capsule 2 cap PO BID Qty: 120 0RF montelukast 10 mg tablet 1 tab PO BEDTIME Qty: 30 0RF albuterol sulfate [Ventolin HFA] 90 mcg/actuation HFA aerosol inhaler 1 puff INHALATION Q4H PRN (Reason: Wheezing) Qty: 1 0RF Incruse Ellipta 62.5 mcg/actuation blister with device 1 puff PO DAILY Qty: 1 0RF prednisone 20 mg tablet 40 mg PO DAILY Qty: 10 0RF atorvastatin 80 mg Tablet 80 mg PO BEDTIME 30 Days Qty: 30 0RF acetaminophen 325 mg Tablet 650 mg PO Q8H PRN (Reason: Pain, Mild (Pain Scale 1-3)) 30 Days Qty: 90 0RF polyethylene glycol 3350 17 gram Powder In Packet 17 g PO DAILY PRN (Reason: Constipation) 5 Days Qty: 30 0RF aspirin 81 mg Tablet,Delayed Release (Dr/Ec) 81 mg PO DAILY 30 Days Qty: 30 0RF carvedilol 3.125 mg Tablet 3.125 mg PO BID 30 Days Qty: 60 0RF Protocol: Hold for SBP/HR < HOLD for SBP < : 90 HOLD for HR < : 60 gabapentin 100 mg Capsule 200 mg PO BID 10 Days Qty: 40 0RF Brilinta 90 mg Tablet 90 mg PO BID 30 Days Qty: 60 0RF ondansetron 4 mg tablet,disintegrating 4 mg PO Q8H 3 Days Qty: 9 0RF ipratropium-albuterol 0.5 mg-3 mg(2.5 mg base)/3 mL solution for nebulization 3 ml inhalation TID Qty: 90 0RF prednisone 20 mg tablet 20 mg PO DAILY Qty: 5 0RF azithromycin 250 mg tablet 250 mg PO DAILY 4 Days Qty: 4 0RF Rx Instructions: start on day 2 of therapy doxycycline hyclate 100 mg capsule 100 mg PO BID Qty: 9 0RF prednisone 50 mg tablet 50 mg PO DAILY Qty: 4 0RF doxycycline monohydrate 100 mg tablet 100 mg PO BID 10 Days Qty: 20 0RF cephalexin 500 mg capsule 500 mg PO Q6H 10 Days Qty: 40 0RF oxycodone 5 mg tablet 5 mg PO Q6H PRN (Reason: pain) Qty: 7 0RF Rx Instructions: Partial Fill upon patient request. Referrals: Luis Miguel Cantu MD [Physician] - 1 day (Call today to make a follow-up appointment within the next weeks) Interventions: ED Discharge Assessment Last Done: 10/22/22 14:58
[2022-10-22 14:15] LABS: Erythrocyte Sedimentation Rate 2 MM/HR (0-20)
[2022-10-22 14:51] VITALS: BP 129/82; PULSE 95; RESP 18; O2SAT 98
[2022-10-22 15:27] LABS: Reflex Lactate? Lactic Acid Added
== END 2022-10-22 14:59 | disposition home or self-care (01) ==
PROVIDERS: Physician Assistant Medical; Emergency Provider Emergency Medicine
DX: L03.116 Cellulitis of left lower limb (principal); J90 Pleural effusion, not elsewhere classified; J40 Bronchitis, not specified as acute or chronic; Z89.512 Acquired absence of left leg below knee; R53.1 Weakness; Z20.822 Contact with and (suspected) exposure to COVID-19; Z20.828 Contact with and (suspected) exposure to other viral communicable diseases; E11.9 Type 2 diabetes mellitus without complications; I10 Essential (primary) hypertension; F17.210 Nicotine dependence, cigarettes, uncomplicated; Z79.02 Long term (current) use of antithrombotics/antiplatelets; Z79.899 Other long term (current) drug therapy
CPT/HCPCS: 0241U; 36415; 71046; 80053; 80307; 83605; 83735; 85025; 85652; 86140; 87040; 96361; 96365; 96375; 99284; J0696; J2270; J2405

== ENCOUNTER 2022-10-27 17:49 | Emergency (ER) | payer OTHER, SELFPAY ==
--- NOTE | ~2022-10-27 | XR_ITS ---
EXAMINATION: XR CHEST CLINICAL INFORMATION: Follow-up, chest COMPARISON: 10/22/2022 TECHNIQUE: Frontal view of the chest was obtained. FINDINGS: There is blunting of costophrenic angle on the right and linear atelectasis. Increased interstitial markings. Cardiac silhouette is obscured but likely enlarged.. There is low lung volume bilaterally. XR/XR chest 1V IMPRESSION: Right-sided pleural effusion, CHF possibly cardiomegaly
--- NOTE | 2022-10-27 17:51 | ECG_ITS ---
Test Reason : CHEST PAIN Blood Pressure : / mmHG Vent. Rate : 106 BPM Atrial Rate : 106 BPM P-R Int : 148 ms QRS Dur : 086 ms QT Int : 362 ms P-R-T Axes : 072 043 094 degrees QTc Int : 480 ms Sinus tachycardia with occasional Premature ventricular complexes Low voltage QRS Cannot rule out Anterior infarct (cited on or before 13-JUN-2022) Abnormal ECG When compared with ECG of 20-OCT-2022 20:32, Premature ventricular complexes are now Present Nonspecific T wave abnormality no longer evident in Inferior leads Referred By: Jenni Cherry Electronically Signed By:Gurmeet Gallardo
[2022-10-27 18:18] VITALS: BP 166/88; PULSE 105; RESP 22; TEMP 36.9; O2SAT 95; BMI 28.4
[2022-10-27 18:18] LABS: MANUAL DIFF FLAG NO
--- NOTE | 2022-10-27 18:18 | ED_ITS ---
HPI - General Adult General Chief complaint: Chest Pain Stated complaint: Chest pain/fluid in left leg Time Seen by Provider: 10/27/22 18:53 Source: patient Mode of arrival: ambulatory Limitations: no limitations History of Present Illness HPI narrative: Patient 52 years old with significant CHF with LV ejection fraction of 10-15% multivessel CAD status post stent placement , COPD, peripheral vascular disease status post left BKA on diuretic Lasix 40 mg twice a day comes as she feeling increased swelling of the leg and slight chest discomfort saturating 95% room air. No fever no cough no palpitation patient is on Brilinta Related Data Previous Rx's Medication Instructions Recorded acetaminophen 325 mg tablet 650 mg PO Q8H PRN Pain, Mild (Pain 09/21/22 Scale 1-3) 30 days #90 tabs aspirin 81 mg tablet,delayed 81 mg PO DAILY 30 days #30 tabs 09/21/22 release atorvastatin 80 mg tablet 80 mg PO BEDTIME 30 days #30 tabs 09/21/22 carvedilol 3.125 mg tablet 3.125 mg PO BID 30 days #60 tabs 09/21/22 gabapentin 100 mg capsule 200 mg PO BID 10 days #40 caps 09/21/22 polyethylene glycol 3350 17 gram 17 g PO DAILY PRN Constipation 5 09/21/22 oral powder packet days #30 ea ticagrelor 90 mg tablet (Brilinta) 90 mg PO BID 30 days #60 tabs 09/21/22 ondansetron 4 mg disintegrating 4 mg PO Q8H 3 days #9 tabs 09/24/22 tablet albuterol sulfate 2.5 mg/3 mL 1 vial inhalation Q6H PRN Wheezing 09/29/22 (0.083 %) solution for nebulization #90 mL albuterol sulfate 90 mcg/actuation 1 puff inhalation Q4H PRN Wheezing 09/29/22 aerosol inhaler (Ventolin HFA) #1 g furosemide 40 mg tablet 40 mg PO BID #30 tabs 09/29/22 gabapentin 300 mg capsule 2 cap PO BID #120 caps 09/29/22 lisinopril 20 mg tablet 20 mg PO DAILY #30 tabs 09/29/22 montelukast 10 mg tablet 1 tab PO BEDTIME #30 tabs 09/29/22 umeclidinium 62.5 mcg/actuation 1 puff PO DAILY #1 ea 09/29/22 blister powder for inhalation (Incruse Ellipta) prednisone 20 mg tablet 40 mg PO DAILY #10 tabs 10/05/22 ipratropium 0.5 mg-albuterol 3 mg 3 ml inhalation TID #90 mL 10/14/22 (2.5 mg base)/3 mL nebulization soln prednisone 20 mg tablet 20 mg PO DAILY #5 tabs 10/14/22 azithromycin 250 mg tablet 250 mg PO DAILY 4 days #4 tabs 10/21/22 cephalexin 500 mg capsule 500 mg PO Q6H 10 days #40 caps 10/21/22 doxycycline hyclate 100 mg capsule 100 mg PO BID #9 caps 10/21/22 doxycycline monohydrate 100 mg 100 mg PO BID 10 days #20 tabs 10/21/22 tablet oxycodone 5 mg tablet 5 mg PO Q6H PRN pain #20 tabs 10/21/22 oxycodone 5 mg tablet 5 mg PO Q6H PRN pain #7 tabs 10/21/22 prednisone 50 mg tablet 50 mg PO DAILY #4 tabs 10/21/22 furosemide 40 mg tablet 40 mg PO BID #60 tabs 10/27/22 Allergies Allergy/AdvReac Type Severity Reaction Status Date / Time Penicillins [PENICILLINS] Allergy Severe RASH Verified 10/07/22 09:49 amoxicillin [AMOXICILLIN] Allergy Intermediate HIVES Verified 10/07/22 09:49 codeine Allergy Itching Verified 10/07/22 09:49 perflutren [From Definity] AdvReac Back Pain Verified 10/07/22 09:49 Review of Systems 2 Review of Systems: Yes all other systems are reviewed and are negative [facility] Past Medical History Medical History Asthma Atherosclerotic cardiovascular disease Atrial tachycardia Below-knee amputation of left lower extremity Cellulitis in diabetic foot COPD (chronic obstructive pulmonary disease) Coronary artery disease COVID-19 vaccine series completed Diabetes Diabetic foot infection Diabetic foot infection Diabetic foot ulcer Diabetic toe ulcer Essential hypertension GERD (gastroesophageal reflux disease) Hyperglycemia due to diabetes mellitus Hypertension Ischemic cardiomyopathy Left against medical advice Left against medical advice Osteomyelitis Osteomyelitis 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 PAD (peripheral artery disease) Surgical History History of esophagogastroduodenoscopy (EGD) History of toe surgery (09/22/21) Status post below-knee amputation of left lower extremity (09/20/22) Family History Family History Mother Hx of CABG Sister CAD (coronary artery disease) Social History Social History Household Members: Family and Children Housing: Apartment Do you presently have visiting nurse or other home services: No Unable to assess alcohol history related to: Refusing to respond Alcohol intake: never Patient Tobacco Use Status: Current everyday Tobacco user Tobacco use type: Cigarette Cigarette Packs Per Day: 0.5 Cigarettes Per Day: 6 Years Smoked: 43 e-Cigarette/Vaping Use: Currently Using Second Hand Smoke Exposure: Yes Substance Use Type: Marijuana Advance Directives: Yes Advance Directives on File: Yes Advance Directives Date on File: 09/22/22 service: No Current occupational status: disabled Physical Exam ED Vital Signs: Vital Signs - 24 hr 10/27/22 18:18 10/27/22 20:41 10/27/22 22:24 Temperature 98.5 F 98.3 F Pulse Rate 105 H 97 73 Respiratory Rate 22 H 18 18 Blood Pressure 166/88 H 117/77 99/59 L Pulse Oximetry 95 99 97 Oxygen Delivery Method Room Air Room Air Room Air BMI result Body Mass Index 28.4 Appearance: Alert. Oriented X3. No acute distress. Eyes: No pallor ENT: Pharynx normal. Oral Mucosa moist Neck: Normal inspection. Neck supple. CVS: Normal heart rate and rhythm. Pulses normal. Respiratory: No respiratory distress. Equal air entry bilateral, no wheezing/rales/rhonchi Abdomen: Soft and nontender. Bowel sounds are present, no mass palpable, no CVA tenderness Skin: Skin warm and dry. Normal skin color. Normal skin turgor. Extremities: Left BKA bilateral leg edema 2+ small wound on the right lateral aspect of foot Neuro: Oriented X 3. No motor deficit. No sensory deficit.No cerebellar signs , cranial nerves II-XII intact Course Course Course Narrative: This is an RME: Additional HPI, ROS, PE not included below will be deferred to primary provider. 52-year-old female presents with chest pain, shortness of breath, and lower extremity swelling bilaterally, patient tells me that pain and chest is worse with deep breathing, very tearful nervous was told to come in by her nurse. Physical exam some swelling to left amputated lower extremity with overlying erythema. Plan labs, EKG, D-dimer, BNP. Medications Administered Discontinued Medications Generic Name Dose Route Start Last Admin Trade Name Benjaminq PRN Reason Stop Dose Admin Furosemide 40 mg 10/27/22 19:44 10/27/22 20:45 Furosemide 40 Mg/4 Ml Vial IVPUSH 10/27/22 19:45 40 mg ONCE ONE Administration Protocol Morphine Sulfate 4 mg 10/27/22 19:50 10/27/22 20:45 Morphine Sulfate 4 Mg/Ml Cartridge IVPUSH 10/27/22 19:51 4 mg ONCE ONE Administration Protocol Ondansetron HCl 4 mg 10/27/22 19:50 10/27/22 20:45 Ondansetron Hcl 4 Mg/2 Ml Vial IVPUSH 10/27/22 19:51 4 mg ONCE ONE Administration Medical Decision Making Medical Decision Making MDM Narrative: Patient with worsening of CHF with bilateral pleural effusion and CHF on p.o. diuresis feel at home slightly elevated troponin without delta change. Advised admission but initially patient agreed but during stay in the ER start feeling better and refused to stay in the hospital sign against medical advice Lab Data MDM Lab Attestation statement: I reviewed the patient's lab results. 10/27/22 18:10 10/27/22 18:10 Labs: Lab Results 10/27/22 10/27/22 10/27/22 Range/Units 18:10 18:10 18:10 WBC 6.5 (4.8-10.8) X10*3/uL RBC 4.78 (4.20-5.50) X10*6/uL Hgb 9.5 L (12.0-16.0) g/dl Hct 33.9 L (37.0-47.0) % MCV 70.9 L (80.0-98.0) fL MCH 19.9 L (27.0-33.0) pg MCHC 28.0 L (31.0-35.0) g/dl RDW 24.0 H (11.0-16.0) % Plt Count 154 L (160-400) X10*3/uL MPV TNP Immature Gran % (Auto) 0.3 (0.0-0.4) % Neut % (Auto) 74.2 H (45-73) % Lymph % (Auto) 18.6 L (20-40) % Haskell % (Auto) 5.8 (2-11) % Eos % (Auto) 0.6 (0-4) % Baso % (Auto) 0.5 (0-2) % Lymph # (Auto) 1.2 (1.2-4.9) X10*3/uL Haskell # (Auto) 0.4 (0.1-1.2) X10*3/uL Eos # (Auto) 0.0 (0.0-0.4) X10*3/uL Baso # (Auto) 0.0 (0.0-0.2) X10*3/uL Abs Immat Gran (auto) 0.02 (0.00-0.03) X10*3/uL Absolute Neuts (auto) 4.8 (2.0-8.3) x10*3/uL Absolute Nucleated RBC 0.000 (0.0-0.012) X10*3/uL Nucleated RBC % (auto) 0.0 (0.0-0.2) /100WBC D-Dimer High Sensitivty NG/ML Sodium 139 (135-145) mmol/L Potassium 4.3 (3.3-5.1) mmol/L Chloride 102 (96-108) mmol/L Carbon Dioxide 29 (22-29) mmol/L Anion Gap 12 (12-20) BUN 13 (9-16) mg/dL Creatinine 0.83 (0.5-1.4) mg/dL Estim Creat Clear Calc 85.4 Estimated GFR > 60 Random Glucose 159 H (60-115) mg/dL Calcium 9.1 (8.4-10.2) mg/dL Magnesium 1.8 (1.6-2.6) mg/dL Total Bilirubin 2.0 H (0.0-1.0) mg/dL AST 9 (5-31) U/L ALT 13 (0-31) U/L Alkaline Phosphatase 117 (39-117) U/L Troponin I High Sens 62.6 H* D (<3.5-17.0) ng/L B-Natriuretic Peptide (<100) pg/mL Total Protein 6.1 L (6.5-8.0) g/dL Albumin 3.6 (3.5-5.0) g/dL 10/27/22 10/27/22 10/27/22 Range/Units 18:10 18:32 22:29 WBC (4.8-10.8) X10*3/uL RBC (4.20-5.50) X10*6/uL Hgb (12.0-16.0) g/dl Hct (37.0-47.0) % MCV (80.0-98.0) fL MCH (27.0-33.0) pg MCHC (31.0-35.0) g/dl RDW (11.0-16.0) % Plt Count (160-400) X10*3/uL MPV Immature Gran % (Auto) (0.0-0.4) % Neut % (Auto) (45-73) % Lymph % (Auto) (20-40) % Haskell % (Auto) (2-11) % Eos % (Auto) (0-4) % Baso % (Auto) (0-2) % Lymph # (Auto) (1.2-4.9) X10*3/uL Haskell # (Auto) (0.1-1.2) X10*3/uL Eos # (Auto) (0.0-0.4) X10*3/uL Baso # (Auto) (0.0-0.2) X10*3/uL Abs Immat Gran (auto) (0.00-0.03) X10*3/uL Absolute Neuts (auto) (2.0-8.3) x10*3/uL Absolute Nucleated RBC (0.0-0.012) X10*3/uL Nucleated RBC % (auto) (0.0-0.2) /100WBC D-Dimer High Sensitivty 226 NG/ML Sodium (135-145) mmol/L Potassium (3.3-5.1) mmol/L Chloride (96-108) mmol/L Carbon Dioxide (22-29) mmol/L Anion Gap (12-20) BUN (9-16) mg/dL Creatinine (0.5-1.4) mg/dL Estim Creat Clear Calc Estimated GFR Random Glucose (60-115) mg/dL Calcium (8.4-10.2) mg/dL Magnesium (1.6-2.6) mg/dL Total Bilirubin (0.0-1.0) mg/dL AST (5-31) U/L ALT (0-31) U/L Alkaline Phosphatase (39-117) U/L Troponin I High Sens 79.3 H* (<3.5-17.0) ng/L B-Natriuretic Peptide 2830 H (<100) pg/mL Total Protein (6.5-8.0) g/dL Albumin (3.5-5.0) g/dL Independent Interpretation I performed an independent interpretation of an: EKG Interpretation: Sinus tachycardia with heart rate of 106 beats per minute with occasional PVCs no acute ST wave changes no acute ischemia External Record Review External record reviewed: Inpatient record Discharge Plan Discharge Clinical Impression: Chronic CHF (congestive heart failure) Patient Disposition: Home, Self-Care Additional Instructions: Continue medication and water pill Follow up with your operations architect Prescriptions: New furosemide 40 mg tablet 40 mg PO BID Qty: 60 2RF No Action oxycodone 5 mg tablet 5 mg PO Q6H PRN (Reason: pain) Qty: 20 0RF Rx Instructions: Partial Fill upon patient request. furosemide 40 mg Tablet 40 mg PO BID Qty: 30 0RF albuterol sulfate 2.5 mg /3 mL (0.083 %) solution for nebulization 1 vial inhalation Q6H PRN (Reason: Wheezing) Qty: 90 0RF lisinopril 20 mg tablet 20 mg PO DAILY Qty: 30 0RF gabapentin 300 mg capsule 2 cap PO BID Qty: 120 0RF montelukast 10 mg tablet 1 tab PO BEDTIME Qty: 30 0RF albuterol sulfate [Ventolin HFA] 90 mcg/actuation HFA aerosol inhaler 1 puff INHALATION Q4H PRN (Reason: Wheezing) Qty: 1 0RF Incruse Ellipta 62.5 mcg/actuation blister with device 1 puff PO DAILY Qty: 1 0RF prednisone 20 mg tablet 40 mg PO DAILY Qty: 10 0RF atorvastatin 80 mg Tablet 80 mg PO BEDTIME 30 Days Qty: 30 0RF acetaminophen 325 mg Tablet 650 mg PO Q8H PRN (Reason: Pain, Mild (Pain Scale 1-3)) 30 Days Qty: 90 0RF polyethylene glycol 3350 17 gram Powder In Packet 17 g PO DAILY PRN (Reason: Constipation) 5 Days Qty: 30 0RF aspirin 81 mg Tablet,Delayed Release (Dr/Ec) 81 mg PO DAILY 30 Days Qty: 30 0RF carvedilol 3.125 mg Tablet 3.125 mg PO BID 30 Days Qty: 60 0RF Protocol: Hold for SBP/HR < HOLD for SBP < : 90 HOLD for HR < : 60 gabapentin 100 mg Capsule 200 mg PO BID 10 Days Qty: 40 0RF Brilinta 90 mg Tablet 90 mg PO BID 30 Days Qty: 60 0RF ondansetron 4 mg tablet,disintegrating 4 mg PO Q8H 3 Days Qty: 9 0RF ipratropium-albuterol 0.5 mg-3 mg(2.5 mg base)/3 mL solution for nebulization 3 ml inhalation TID Qty: 90 0RF prednisone 20 mg tablet 20 mg PO DAILY Qty: 5 0RF azithromycin 250 mg tablet 250 mg PO DAILY 4 Days Qty: 4 0RF Rx Instructions: start on day 2 of therapy doxycycline hyclate 100 mg capsule 100 mg PO BID Qty: 9 0RF prednisone 50 mg tablet 50 mg PO DAILY Qty: 4 0RF doxycycline monohydrate 100 mg tablet 100 mg PO BID 10 Days Qty: 20 0RF cephalexin 500 mg capsule 500 mg PO Q6H 10 Days Qty: 40 0RF oxycodone 5 mg tablet 5 mg PO Q6H PRN (Reason: pain) Qty: 7 0RF Rx Instructions: Partial Fill upon patient request. Stand Alone Forms: Against Medical Advice
[2022-10-27 18:26] LABS: Basophils Percent Auto 0.5 % (0-2); Eosinophils Percent Auto 0.6 % (0-4); Hematocrit 33.9 % (37.0-47.0); Hemoglobin 9.5 g/dl (12.0-16.0); Imm Gran Abs Auto 0.02 X10*3/uL (0.00-0.03); Imm Gran Pct Auto 0.3 % (0.0-0.4); Lymphocytes Absolute Auto 1.2 X10*3/uL (1.2-4.9); Lymphocytes Percent Auto 18.6 % (20-40); Mean Corpuscular Hemoglobin 19.9 pg (27.0-33.0); Mean Corpuscular Volume 70.9 fL (80.0-98.0); Monocytes Absolute Auto 0.4 X10*3/uL (0.1-1.2); Monocytes Percent Auto 5.8 % (2-11); Neutrophils Absolute Auto 4.8 x10*3/uL (2.0-8.3); Neutrophils Percent Auto 74.2 % (45-73); Platelet Count 154 X10*3/uL (160-400); Red Blood Count 4.78 X10*6/uL (4.20-5.50); White Blood Count 6.5 X10*3/uL (4.8-10.8)
[2022-10-27 18:32] LABS: Alanine Aminotransferase 13 U/L (0-31); Albumin Level 3.6 g/dL (3.5-5.0); Alkaline Phosphatase 117 U/L (39-117); Anion Gap 12 (12-20); Aspartate Amino Transferase 9 U/L (5-31); Blood Urea Nitrogen 13 mg/dL (9-16); Calcium 9.1 mg/dL (8.4-10.2); Carbon Dioxide 29 mmol/L (22-29); Chloride 102 mmol/L (96-108); Creatinine Clr Calc Pharmacy 85.4; Estimated Glomerular Filt Rate > 60; Glucose Random 159 mg/dL (60-115); Magnesium 1.8 mg/dL (1.6-2.6); Potassium 4.3 mmol/L (3.3-5.1); Sodium 139 mmol/L (135-145); Total Protein 6.1 g/dL (6.5-8.0)
[2022-10-27 18:42] LABS: Troponin-I High Sensitivity 62.6 ng/L (<3.5-17.0)
[2022-10-27 18:47] LABS: D Dimer High Sensitivity 226 NG/ML
[2022-10-27 18:54] LABS: B Type Natriuretic Peptide 2830 pg/mL (<100)
[2022-10-27 20:41] VITALS: BP 117/77; PULSE 97; RESP 18; O2SAT 99
[2022-10-27] MEDS: ondansetron HCL 4 MG/2 ML VIAL IVPUSH (20:45)
[2022-10-27] MEDS: Furosemide 40 MG/4 ML VIAL IVPUSH (20:45)
[2022-10-27] MEDS: Morphine Sulfate 4 MG/ML CARTRIDGE IVPUSH (20:45)
--- NOTE | 2022-10-27 20:50 | PC.NURSE ---
Pt aox4 resting at the beside. Reports left leg pain 10/10. Medicated as ordered. Tolerated well. Pt aware of plan of care.
[2022-10-27 22:24] VITALS: BP 99/59; PULSE 73; RESP 18; TEMP 36.8; O2SAT 97
[2022-10-27 22:55] LABS: Troponin-I High Sensitivity 79.3 ng/L (<3.5-17.0)
--- NOTE | 2022-10-27 23:17 | PC.NURSE ---
Discharge instructions given and explained to pt No apparent distress IV cath tip intact upon removal w/c baseline aox4
== END 2022-10-27 23:10 | disposition home or self-care (01) ==
PROVIDERS: Physician Assistant; Emergency Provider Internal Medicine
DX: I11.0 Hypertensive heart disease with heart failure (principal); I50.9 Heart failure, unspecified; R60.0 Localized edema; E11.9 Type 2 diabetes mellitus without complications; F17.210 Nicotine dependence, cigarettes, uncomplicated; F12.90 Cannabis use, unspecified, uncomplicated; Z89.512 Acquired absence of left leg below knee; Z79.82 Long term (current) use of aspirin; Z79.02 Long term (current) use of antithrombotics/antiplatelets; Z79.899 Other long term (current) drug therapy
CPT/HCPCS: 36415; 71045; 80053; 83735; 83880; 84484; 85025; 85379; 93005; 96374; 96375; 99284; 99285; J1940; J2270; J2405

== ENCOUNTER 2022-10-31 21:35 | Emergency (ER) | payer OTHER, SELFPAY ==
[2022-10-31 21:37] VITALS: BP 116/64; PULSE 100; O2SAT 100
== END 2022-10-31 22:14 | disposition left against medical advice (07) ==
LOC: HO.ED 22:13
PROVIDERS: Emergency Provider Emergency Medicine
DX: E11.649 Type 2 diabetes mellitus with hypoglycemia without coma (principal)

== ENCOUNTER 2022-11-02 10:03 | Emergency (ER) | payer OTHER, SELFPAY ==
[2022-11-02 10:24] VITALS: BP 114/77; PULSE 100; RESP 19; TEMP 36.6; O2SAT 100; BMI 24.8
--- NOTE | 2022-11-02 12:14 | ED_ITS ---
HPI - General Adult General Chief complaint: General Medical Stated complaint: L Foot Pain Oozing Due To Amputation Time Seen by Provider: 11/02/22 12:12 Source: patient and old records reviewed Mode of arrival: wheelchair Limitations: no limitations History of Present Illness HPI narrative: 52-year-old female with complex medical history CHF, cardiomyopathy with EF 10- 15%, multivessel CAD status post stent, COPD, PVD, DM2, status post left BKA 09/20/22, who presents to the ER from home for ongoing stump pain. She states it is oozing clear fluid. She has a nurse that comes to the home but they don't do wound care or dressing changes. She denies any SOB or chest pains. She has been getting oxycodone from Dr. Cantu, has been filled 3 times this month, last was 2 days ago for 20 tablets of oxycodone. She states the pain is still severe and ongoing. She reports that slightly more red than usual. The drainage is clear. No fever or chills. MD complaint: stump pain s/p BKA 09/20 Onset (ago): week(s) Location: left and lower extremity Severity scale (1-10): 10 Quality: aching and constant Pain Consistency: constant Exacerbating factors: none Associated symptoms: denies other symptoms Treatments prior to arrival: none Related Data Previous Rx's Medication Instructions Recorded acetaminophen 325 mg tablet 650 mg PO Q8H PRN Pain, Mild (Pain 09/21/22 Scale 1-3) 30 days #90 tabs aspirin 81 mg tablet,delayed 81 mg PO DAILY 30 days #30 tabs 09/21/22 release atorvastatin 80 mg tablet 80 mg PO BEDTIME 30 days #30 tabs 09/21/22 carvedilol 3.125 mg tablet 3.125 mg PO BID 30 days #60 tabs 09/21/22 gabapentin 100 mg capsule 200 mg PO BID 10 days #40 caps 09/21/22 polyethylene glycol 3350 17 gram 17 g PO DAILY PRN Constipation 5 09/21/22 oral powder packet days #30 ea ticagrelor 90 mg tablet (Brilinta) 90 mg PO BID 30 days #60 tabs 09/21/22 ondansetron 4 mg disintegrating 4 mg PO Q8H 3 days #9 tabs 09/24/22 tablet albuterol sulfate 2.5 mg/3 mL 1 vial inhalation Q6H PRN Wheezing 09/29/22 (0.083 %) solution for nebulization #90 mL albuterol sulfate 90 mcg/actuation 1 puff inhalation Q4H PRN Wheezing 09/29/22 aerosol inhaler (Ventolin HFA) #1 g furosemide 40 mg tablet 40 mg PO BID #30 tabs 09/29/22 gabapentin 300 mg capsule 2 cap PO BID #120 caps 09/29/22 lisinopril 20 mg tablet 20 mg PO DAILY #30 tabs 09/29/22 montelukast 10 mg tablet 1 tab PO BEDTIME #30 tabs 09/29/22 umeclidinium 62.5 mcg/actuation 1 puff PO DAILY #1 ea 09/29/22 blister powder for inhalation (Incruse Ellipta) prednisone 20 mg tablet 40 mg PO DAILY #10 tabs 10/05/22 ipratropium 0.5 mg-albuterol 3 mg 3 ml inhalation TID #90 mL 10/14/22 (2.5 mg base)/3 mL nebulization soln prednisone 20 mg tablet 20 mg PO DAILY #5 tabs 10/14/22 azithromycin 250 mg tablet 250 mg PO DAILY 4 days #4 tabs 10/21/22 cephalexin 500 mg capsule 500 mg PO Q6H 10 days #40 caps 10/21/22 doxycycline hyclate 100 mg capsule 100 mg PO BID #9 caps 10/21/22 doxycycline monohydrate 100 mg 100 mg PO BID 10 days #20 tabs 10/21/22 tablet oxycodone 5 mg tablet 5 mg PO Q6H PRN pain #7 tabs 10/21/22 prednisone 50 mg tablet 50 mg PO DAILY #4 tabs 10/21/22 furosemide 40 mg tablet 40 mg PO BID #60 tabs 10/27/22 oxycodone 5 mg tablet 5 mg PO Q6H PRN pain #20 tabs 10/31/22 Allergies Allergy/AdvReac Type Severity Reaction Status Date / Time Penicillins [PENICILLINS] Allergy Severe RASH Verified 10/07/22 09:49 amoxicillin [AMOXICILLIN] Allergy Intermediate HIVES Verified 10/07/22 09:49 perflutren [From Definity] AdvReac Back Pain Verified 10/07/22 09:49 Review of Systems Review of Systems: Yes all other systems are reviewed and are negative [facility] Past Medical History Medical History Asthma Atherosclerotic cardiovascular disease Atrial tachycardia Below-knee amputation of left lower extremity Cellulitis in diabetic foot COPD (chronic obstructive pulmonary disease) Coronary artery disease COVID-19 vaccine series completed Diabetes Diabetic foot infection Diabetic foot infection Diabetic foot ulcer Diabetic toe ulcer Essential hypertension GERD (gastroesophageal reflux disease) Hyperglycemia due to diabetes mellitus Hypertension Ischemic cardiomyopathy Left against medical advice Left against medical advice Osteomyelitis Osteomyelitis 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 PAD (peripheral artery disease) Surgical History History of esophagogastroduodenoscopy (EGD) History of toe surgery (09/22/21) Status post below-knee amputation of left lower extremity (09/20/22) Family History Family History Mother Hx of CABG Sister CAD (coronary artery disease) Social History Social History Household Members: Family and Children Housing: Apartment Do you presently have visiting nurse or other home services: No Unable to assess alcohol history related to: Refusing to respond Alcohol intake: unknown Patient Tobacco Use Status: Current everyday Tobacco user Tobacco use type: Cigarette Cigarette Packs Per Day: 0.5 Cigarettes Per Day: 6 Years Smoked: 43 e-Cigarette/Vaping Use: Currently Using Second Hand Smoke Exposure: Yes Substance Use Type: Marijuana Advance Directives: Yes Advance Directives on File: Yes Advance Directives Date on File: 09/22/22 service: No Current occupational status: disabled Physical Exam ED Vital Signs: Vital Signs - 24 hr 11/02/22 10:24 Temperature 98 F Pulse Rate 100 Respiratory Rate 19 Blood Pressure 114/77 Pulse Oximetry 100 Oxygen Delivery Method Room Air BMI result Body Mass Index 24.8 Appearance: Alert. Oriented X3. Tearful, chronically ill-appearing, appears older than stated age HEENT: normal inspection CVS: Normal heart rate and rhythm. Pulses normal. Respiratory: No respiratory distress. Skin: Skin warm and dry. Normal skin color. Normal skin turgor. No rashes. Extremities: Left stump with mild erythema at the suture line, with a small area of dehiscence, clear serosanguineous fluid. No fluctuance. Minimally tender. Not warm. Neuro: Oriented X 3. No motor deficit. No sensory deficit. Medical Decision Making Medical Decision Making MDM Narrative: 52 yo female well known to the ER s/p left AKA September 20 here for pain control. stump does not appear infectied. HAND THERAPIST reviewed - she has picked up 60 tablets of oxycodone this month, last 20 tablets 2 days ago. she is declining labs. she wants to go home. stable for d/c home with outpatient follow up. Differential Diagnosis Differential Diagnoses: The differential diagnosis associated with the presentation includes Acute on chronic pain, malingering, med seeking, cellulitis, abscess, infection External Record Review External record reviewed: Inpatient record, Office record, Outpatient record, Prior outpatient labs and Prior outpatient radiology Prescription Management I considered prescription management with: Pain Medication and Antibiotic not infected Critical Care Time Critical Care Time Critical Care Time: No Discharge Plan Discharge Clinical Impression: Chronic leg pain Patient Disposition: Home, Self-Care Instructions: Leg Pain (ED) Additional Instructions: Follow-up with your surgeon and her primary care doctor. Take Tylenol and Motrin around the clock for pain. Keep stump clean, covered, frequently change dressings as needed. If you develop new or worsening symptoms call 911 or come back to the ER for further evaluation. Prescriptions: No Action oxycodone 5 mg tablet 5 mg PO Q6H PRN (Reason: pain) Qty: 20 0RF Rx Instructions: Partial Fill upon patient request. furosemide 40 mg Tablet 40 mg PO BID Qty: 30 0RF albuterol sulfate 2.5 mg /3 mL (0.083 %) solution for nebulization 1 vial inhalation Q6H PRN (Reason: Wheezing) Qty: 90 0RF lisinopril 20 mg tablet 20 mg PO DAILY Qty: 30 0RF gabapentin 300 mg capsule 2 cap PO BID Qty: 120 0RF montelukast 10 mg tablet 1 tab PO BEDTIME Qty: 30 0RF albuterol sulfate [Ventolin HFA] 90 mcg/actuation HFA aerosol inhaler 1 puff INHALATION Q4H PRN (Reason: Wheezing) Qty: 1 0RF Incruse Ellipta 62.5 mcg/actuation blister with device 1 puff PO DAILY Qty: 1 0RF prednisone 20 mg tablet 40 mg PO DAILY Qty: 10 0RF atorvastatin 80 mg Tablet 80 mg PO BEDTIME 30 Days Qty: 30 0RF acetaminophen 325 mg Tablet 650 mg PO Q8H PRN (Reason: Pain, Mild (Pain Scale 1-3)) 30 Days Qty: 90 0RF polyethylene glycol 3350 17 gram Powder In Packet 17 g PO DAILY PRN (Reason: Constipation) 5 Days Qty: 30 0RF aspirin 81 mg Tablet,Delayed Release (Dr/Ec) 81 mg PO DAILY 30 Days Qty: 30 0RF carvedilol 3.125 mg Tablet 3.125 mg PO BID 30 Days Qty: 60 0RF Protocol: Hold for SBP/HR < HOLD for SBP < : 90 HOLD for HR < : 60 gabapentin 100 mg Capsule 200 mg PO BID 10 Days Qty: 40 0RF Brilinta 90 mg Tablet 90 mg PO BID 30 Days Qty: 60 0RF ondansetron 4 mg tablet,disintegrating 4 mg PO Q8H 3 Days Qty: 9 0RF ipratropium-albuterol 0.5 mg-3 mg(2.5 mg base)/3 mL solution for nebulization 3 ml inhalation TID Qty: 90 0RF prednisone 20 mg tablet 20 mg PO DAILY Qty: 5 0RF azithromycin 250 mg tablet 250 mg PO DAILY 4 Days Qty: 4 0RF Rx Instructions: start on day 2 of therapy doxycycline hyclate 100 mg capsule 100 mg PO BID Qty: 9 0RF prednisone 50 mg tablet 50 mg PO DAILY Qty: 4 0RF doxycycline monohydrate 100 mg tablet 100 mg PO BID 10 Days Qty: 20 0RF cephalexin 500 mg capsule 500 mg PO Q6H 10 Days Qty: 40 0RF oxycodone 5 mg tablet 5 mg PO Q6H PRN (Reason: pain) Qty: 7 0RF Rx Instructions: Partial Fill upon patient request. furosemide 40 mg tablet 40 mg PO BID Qty: 60 2RF Referrals: [facility] [place] General Surgeons [Provider Group] Interventions: ED Discharge Assessment Last Done: 11/02/22 12:41 Discharge Date/Time: 11/02/22 12:42
== END 2022-11-02 12:42 | disposition home or self-care (01) ==
PROVIDERS: Emergency Provider Emergency Medicine Emergency Medical Services
DX: G89.29 Other chronic pain (principal); M79.605 Pain in left leg; Z89.432 Acquired absence of left foot; E11.9 Type 2 diabetes mellitus without complications; I10 Essential (primary) hypertension; F17.210 Nicotine dependence, cigarettes, uncomplicated; Z79.02 Long term (current) use of antithrombotics/antiplatelets; Z79.899 Other long term (current) drug therapy; Z79.82 Long term (current) use of aspirin
CPT/HCPCS: 99282

== ENCOUNTER 2022-11-03 20:23 | Emergency (ER) | payer OTHER, SELFPAY ==
[2022-11-03 20:37] VITALS: BP 126/74; PULSE 100; RESP 20; TEMP 36.5; O2SAT 100; BMI 24.8
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
--- NOTE | 2022-11-03 20:40 | ECG_ITS ---
Test Reason : WEAKNESS Blood Pressure : / mmHG Vent. Rate : 096 BPM Atrial Rate : 096 BPM P-R Int : 174 ms QRS Dur : 080 ms QT Int : 374 ms P-R-T Axes : 078 090 105 degrees QTc Int : 472 ms Normal sinus rhythm Rightward axis Low voltage QRS Cannot rule out Anterior infarct (cited on or before 13-JUN-2022) Abnormal ECG When compared with ECG of 27-OCT-2022 17:55, Premature ventricular complexes are no longer Present Referred By: Maki Ram Electronically Signed By:WENDY JIMENES
[2022-11-03 21:22] LABS: Basophils Absolute Auto 0.1 X10*3/uL (0.0-0.2); Eosinophils Percent Auto 0.5 % (0-4); Hemoglobin 9.7 g/dl (12.0-16.0); Imm Gran Abs Auto 0.03 X10*3/uL (0.00-0.03); Imm Gran Pct Auto 0.5 % (0.0-0.4); Lymphocytes Percent Auto 15.9 % (20-40); MANUAL DIFF FLAG SCAN; Mean Corpuscular HGB Conc 28.5 g/dl (31.0-35.0); Mean Corpuscular Volume 70.1 fL (80.0-98.0); Monocytes Absolute Auto 0.3 X10*3/uL (0.1-1.2); Monocytes Percent Auto 5.4 % (2-11); Neutrophils Absolute Auto 4.6 x10*3/uL (2.0-8.3); Neutrophils Percent Auto 76.7 % (45-73); Platelet Count 177 X10*3/uL (160-400); Red Blood Count 4.85 X10*6/uL (4.20-5.50); Red Cell Distribution Width 22.6 % (11.0-16.0); SCAN SMEAR FLAG 1
[2022-11-03 21:24] LABS: PLT ABN DIST 1
[2022-11-03 21:27] LABS: INTERNATIONAL NORM RATIO 2.3 (0.9-1.1); Prothrombin Time 27.7 SEC (10.0-13.1)
[2022-11-03 21:40] LABS: Alanine Aminotransferase 49 U/L (0-31); Albumin Level 3.7 g/dL (3.5-5.0); Alkaline Phosphatase 123 U/L (39-117); Anion Gap 16 (12-20); Aspartate Amino Transferase 39 U/L (5-31); Bilirubin Total 2.7 mg/dL (0.0-1.0); Blood Urea Nitrogen 30 mg/dL (9-16); Calcium 9.5 mg/dL (8.4-10.2); Carbon Dioxide 26 mmol/L (22-29); Chloride 99 mmol/L (96-108); Creatinine Clr Calc Pharmacy 49.3; Estimated Glomerular Filt Rate 47; Glucose Random 231 mg/dL (60-115); Lactic Acid 3.1 mmol/L (0.5-2.0); Potassium 4.9 mmol/L (3.3-5.1); Sodium 136 mmol/L (135-145); Total Protein 6.3 g/dL (6.5-8.0)
[2022-11-03 22:03] VITALS: BP 129/67; PULSE 98; RESP 14; TEMP 36.8; O2SAT 100
[2022-11-03 22:03] LABS: SLIDE REVIEW VERIFIED
[2022-11-03 23:19] LABS: Reflex Lactate? Lactic Acid Added
[2022-11-04 00:47] VITALS: RESP 16
[2022-11-04] MEDS: Morphine Sulfate 4 MG/ML CARTRIDGE IVPUSH (00:47)
[2022-11-04 00:55] LABS: ~Lactic Acid-LAB USE ONLY 2.7 mmol/L (0.5-2.0)
[2022-11-04 01:22] LABS: Erythrocyte Sedimentation Rate 5 MM/HR (0-20)
[2022-11-04 02:02] LABS: C Reactive Protein 2.22 mg/dL (< or = 0.50)
[2022-11-04] MEDS: Sulfamethox/Trimeth 800/160 TABLET 1 TAB PO (02:17)
[2022-11-04 02:35] LABS: Reflex Lactate? 2 Y
== END 2022-11-04 02:30 | disposition home or self-care (01) ==
PROVIDERS: Nurse Practitioner Family; Emergency Provider Emergency Medicine
DX: R06.02 Shortness of breath (principal); L03.116 Cellulitis of left lower limb; R94.31 Abnormal electrocardiogram [ECG] [EKG]; F17.210 Nicotine dependence, cigarettes, uncomplicated; Z71.6 Tobacco abuse counseling; Z79.899 Other long term (current) drug therapy
CPT/HCPCS: 36415; 80048; 80076; 83605; 83735; 85025; 85610; 85652; 86140; 87040; 93005; 96374; 99284; J2270

== ENCOUNTER 2022-11-04 15:36 | Emergency (ER) | payer OTHER, SELFPAY ==
--- NOTE | ~2022-11-04 | XR_ITS ---
EXAMINATION: XR FOOT, RIGHT CLINICAL INFORMATION: Pain and swelling COMPARISON: Previous x-ray September 2022 TECHNIQUE: AP, lateral, and oblique views of the right foot. FINDINGS: The bones are osteopenic. No fracture or dislocation. Calcaneal spurs. Soft tissue swelling over the heel. XR/XR foot RT 2V IMPRESSION: Osteopenia. Calcaneal spurs. Soft tissue swelling over the heel.
[2022-11-04 15:38] VITALS: BP 124/77; PULSE 97; RESP 17; TEMP 36.1; O2SAT 100; BMI 24.8
--- NOTE | 2022-11-04 15:38 | ED.GENADULT ---
HPI - General Adult General Chief complaint: Wound/Laceration Stated complaint: right leg pain Time Seen by Provider: 11/04/22 17:44 Source: patient Mode of arrival: ambulatory Limitations: no limitations History of Present Illness HPI narrative: Patient with right lateral aspect of the right foot status post BKA left leg worried about the wound on the lateral aspect of the right for saying that is draining but it looks dry patient was seen here yesterday asking for the pain medication been coming here 10 times already this month Related Data Previous Rx's Medication Instructions Recorded acetaminophen 325 mg tablet 650 mg PO Q8H PRN Pain, Mild (Pain 09/21/22 Scale 1-3) 30 days #90 tabs aspirin 81 mg tablet,delayed 81 mg PO DAILY 30 days #30 tabs 09/21/22 release atorvastatin 80 mg tablet 80 mg PO BEDTIME 30 days #30 tabs 09/21/22 carvedilol 3.125 mg tablet 3.125 mg PO BID 30 days #60 tabs 09/21/22 gabapentin 100 mg capsule 200 mg PO BID 10 days #40 caps 09/21/22 polyethylene glycol 3350 17 gram 17 g PO DAILY PRN Constipation 5 09/21/22 oral powder packet days #30 ea ticagrelor 90 mg tablet (Brilinta) 90 mg PO BID 30 days #60 tabs 09/21/22 ondansetron 4 mg disintegrating 4 mg PO Q8H 3 days #9 tabs 09/24/22 tablet albuterol sulfate 2.5 mg/3 mL 1 vial inhalation Q6H PRN Wheezing 09/29/22 (0.083 %) solution for nebulization #90 mL albuterol sulfate 90 mcg/actuation 1 puff inhalation Q4H PRN Wheezing 09/29/22 aerosol inhaler (Ventolin HFA) #1 g furosemide 40 mg tablet 40 mg PO BID #30 tabs 09/29/22 gabapentin 300 mg capsule 2 cap PO BID #120 caps 09/29/22 lisinopril 20 mg tablet 20 mg PO DAILY #30 tabs 09/29/22 montelukast 10 mg tablet 1 tab PO BEDTIME #30 tabs 09/29/22 umeclidinium 62.5 mcg/actuation 1 puff PO DAILY #1 ea 09/29/22 blister powder for inhalation (Incruse Ellipta) prednisone 20 mg tablet 40 mg PO DAILY #10 tabs 10/05/22 ipratropium 0.5 mg-albuterol 3 mg 3 ml inhalation TID #90 mL 10/14/22 (2.5 mg base)/3 mL nebulization soln prednisone 20 mg tablet 20 mg PO DAILY #5 tabs 10/14/22 azithromycin 250 mg tablet 250 mg PO DAILY 4 days #4 tabs 10/21/22 cephalexin 500 mg capsule 500 mg PO Q6H 10 days #40 caps 10/21/22 doxycycline hyclate 100 mg capsule 100 mg PO BID #9 caps 10/21/22 doxycycline monohydrate 100 mg 100 mg PO BID 10 days #20 tabs 10/21/22 tablet oxycodone 5 mg tablet 5 mg PO Q6H PRN pain #7 tabs 10/21/22 prednisone 50 mg tablet 50 mg PO DAILY #4 tabs 10/21/22 furosemide 40 mg tablet 40 mg PO BID #60 tabs 10/27/22 oxycodone 5 mg tablet 5 mg PO Q6H PRN pain #20 tabs 10/31/22 morphine 15 mg immediate release 15 mg PO BID PRN pain #20 tabs 11/04/22 tablet sulfamethoxazole 800 1 tab PO BID #20 tabs 11/04/22 mg-trimethoprim 160 mg tablet (Bactrim DS) Allergies Allergy/AdvReac Type Severity Reaction Status Date / Time Penicillins [PENICILLINS] Allergy Severe RASH Verified 10/07/22 09:49 amoxicillin [AMOXICILLIN] Allergy Intermediate HIVES Verified 10/07/22 09:49 perflutren [From Definity] AdvReac Back Pain Verified 10/07/22 09:49 Review of Systems Review of Systems: Yes all other systems are reviewed and are negative [facility] Past Medical History Medical History Asthma Atherosclerotic cardiovascular disease Atrial tachycardia Below-knee amputation of left lower extremity Cellulitis in diabetic foot COPD (chronic obstructive pulmonary disease) Coronary artery disease COVID-19 vaccine series completed Diabetes Diabetic foot infection Diabetic foot infection Diabetic foot ulcer Diabetic toe ulcer Essential hypertension GERD (gastroesophageal reflux disease) Hyperglycemia due to diabetes mellitus Hypertension Ischemic cardiomyopathy Left against medical advice Left against medical advice Osteomyelitis Osteomyelitis 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 PAD (peripheral artery disease) Surgical History History of esophagogastroduodenoscopy (EGD) History of toe surgery (09/22/21) Status post below-knee amputation of left lower extremity (09/20/22) Family History Family History Mother Hx of CABG Sister CAD (coronary artery disease) Social History Social History Household Members: Family and Children Housing: Apartment Do you presently have visiting nurse or other home services: No Unable to assess alcohol history related to: Refusing to respond Alcohol intake: never Patient Tobacco Use Status: Current everyday Tobacco user Tobacco use type: Cigarette Cigarette Packs Per Day: 0.5 Cigarettes Per Day: 6 Years Smoked: 43 e-Cigarette/Vaping Use: Currently Using Second Hand Smoke Exposure: Yes Substance Use Type: Marijuana Advance Directives: No Advance Directives Information Provided: No Advance Directives Date on File: 09/22/22 service: No Current occupational status: disabled Physical Exam ED Vital Signs: Vital Signs - 24 hr 11/04/22 15:38 11/04/22 17:55 Temperature 97.0 F 98.6 F Pulse Rate 97 91 Respiratory Rate 17 18 Blood Pressure 124/77 128/83 Pulse Oximetry 100 99 Oxygen Delivery Method Room Air Room Air BMI result Body Mass Index 24.8 Appearance: Alert. Oriented X3. No acute distress. Eyes: PERRLA, No Nystagmus ENT: Pharynx normal. Oral Mucosa moist Neck: Normal inspection. Neck supple. CVS: Normal heart rate and rhythm. Pulses normal. Respiratory: No respiratory distress. Equal air entry bilateral, no wheezing/rales/rhonchi Abdomen: Soft and nontender. Bowel sounds are present, no mass palpable, no CVA tenderness Skin: Skin warm and dry. Normal skin color. Normal skin turgor. Extremities: No lower extremity edema. No calf tenderness healing wound right lateral aspect of the foot no significant persist left BKA Neuro: Oriented X 3. No motor deficit. No sensory deficit. Course Course Course Narrative: RME performed by Ashley Gill PA-C. Patient is a 52 year old assigned female at presenting to the emergency department with right foot pain / draining. Labs and imaging ordered. Patient placed back in the waiting room pending room availability and results. Medications Administered Discontinued Medications Generic Name Dose Route Start Last Admin Trade Name Freq PRN Reason Stop Dose Admin Morphine Sulfate 15 mg 11/04/22 18:11 11/04/22 18:18 Morphine Sulfate Immed Release 15 Mg Tablet PO 11/04/22 18:12 15 mg ONCE ONE Administration Medical Decision Making Medical Decision Making MDM Narrative: Patient with healing wound the right foot x-ray again negative for bony erosion. Patient advised for local care dressing applied advised to follow-up with wound clinic Discharge Plan Discharge Clinical Impression: Wound discharge Patient Disposition: Home, Self-Care Instructions: Chronic Wounds (ED) Additional Instructions: Wound care as advised Pain medication as prescribed Follow with wound clinic Report to the ER if worsening of the wound/pus discharge Keep your amputated leg elevated Prescriptions: New morphine 15 mg tablet 15 mg PO BID PRN (Reason: pain) Qty: 20 0RF Rx Instructions: Partial Fill upon patient request. No Action oxycodone 5 mg tablet 5 mg PO Q6H PRN (Reason: pain) Qty: 20 0RF Rx Instructions: Partial Fill upon patient request. furosemide 40 mg Tablet 40 mg PO BID Qty: 30 0RF albuterol sulfate 2.5 mg /3 mL (0.083 %) solution for nebulization 1 vial inhalation Q6H PRN (Reason: Wheezing) Qty: 90 0RF lisinopril 20 mg tablet 20 mg PO DAILY Qty: 30 0RF gabapentin 300 mg capsule 2 cap PO BID Qty: 120 0RF montelukast 10 mg tablet 1 tab PO BEDTIME Qty: 30 0RF albuterol sulfate [Ventolin HFA] 90 mcg/actuation HFA aerosol inhaler 1 puff INHALATION Q4H PRN (Reason: Wheezing) Qty: 1 0RF Incruse Ellipta 62.5 mcg/actuation blister with device 1 puff PO DAILY Qty: 1 0RF prednisone 20 mg tablet 40 mg PO DAILY Qty: 10 0RF atorvastatin 80 mg Tablet 80 mg PO BEDTIME 30 Days Qty: 30 0RF acetaminophen 325 mg Tablet 650 mg PO Q8H PRN (Reason: Pain, Mild (Pain Scale 1-3)) 30 Days Qty: 90 0RF polyethylene glycol 3350 17 gram Powder In Packet 17 g PO DAILY PRN (Reason: Constipation) 5 Days Qty: 30 0RF aspirin 81 mg Tablet,Delayed Release (Dr/Ec) 81 mg PO DAILY 30 Days Qty: 30 0RF carvedilol 3.125 mg Tablet 3.125 mg PO BID 30 Days Qty: 60 0RF Protocol: Hold for SBP/HR < HOLD for SBP < : 90 HOLD for HR < : 60 gabapentin 100 mg Capsule 200 mg PO BID 10 Days Qty: 40 0RF Brilinta 90 mg Tablet 90 mg PO BID 30 Days Qty: 60 0RF ondansetron 4 mg tablet,disintegrating 4 mg PO Q8H 3 Days Qty: 9 0RF ipratropium-albuterol 0.5 mg-3 mg(2.5 mg base)/3 mL solution for nebulization 3 ml inhalation TID Qty: 90 0RF prednisone 20 mg tablet 20 mg PO DAILY Qty: 5 0RF azithromycin 250 mg tablet 250 mg PO DAILY 4 Days Qty: 4 0RF Rx Instructions: start on day 2 of therapy doxycycline hyclate 100 mg capsule 100 mg PO BID Qty: 9 0RF prednisone 50 mg tablet 50 mg PO DAILY Qty: 4 0RF doxycycline monohydrate 100 mg tablet 100 mg PO BID 10 Days Qty: 20 0RF cephalexin 500 mg capsule 500 mg PO Q6H 10 Days Qty: 40 0RF oxycodone 5 mg tablet 5 mg PO Q6H PRN (Reason: pain) Qty: 7 0RF Rx Instructions: Partial Fill upon patient request. furosemide 40 mg tablet 40 mg PO BID Qty: 60 2RF sulfamethoxazole-trimethoprim [Bactrim DS] 800-160 mg tablet 1 tab PO BID Qty: 20 0RF Interventions: ED Discharge Assessment Last Done: 11/04/22 18:23 Discharge Date/Time: 11/04/22 18:24 Print Language: French
--- NOTE | 2022-11-04 17:35 | PC.NURSE ---
pt brought back from waiting room, left BKA leaking clear non-odorous drainage, pt states it has been draining for about a day. pt states she was seen here yesterday
[2022-11-04 17:55] VITALS: BP 128/83; PULSE 91; RESP 18; TEMP 37; O2SAT 99
[2022-11-04] MEDS: Morphine Sulfate Immed Release 15 MG TABLET PO (18:18)
== END 2022-11-04 18:24 | disposition home or self-care (01) ==
PROVIDERS: Emergency Provider Internal Medicine
DX: Z48.00 Encounter for change or removal of nonsurgical wound dressing (principal); M79.604 Pain in right leg; E11.9 Type 2 diabetes mellitus without complications; I10 Essential (primary) hypertension; F17.210 Nicotine dependence, cigarettes, uncomplicated; F12.90 Cannabis use, unspecified, uncomplicated; Z89.512 Acquired absence of left leg below knee; Z79.82 Long term (current) use of aspirin; Z79.02 Long term (current) use of antithrombotics/antiplatelets; Z79.899 Other long term (current) drug therapy
CPT/HCPCS: 73620; 99283; 99284

== ENCOUNTER 2022-11-07 23:03 | Emergency (ER) | payer OTHER, SELFPAY ==
[2022-11-07 23:06] VITALS: BP 128/72; PULSE 90; RESP 16; TEMP 36.1; O2SAT 100; BMI 24.8
--- NOTE | 2022-11-07 23:16 | ED_ITS ---
HPI - General Adult General Chief complaint: Wound/Laceration Stated complaint: Fall/Small Lac Time Seen by Provider: 11/07/22 23:16 Source: patient and RN notes reviewed Mode of arrival: wheelchair Limitations: physical limitation History of Present Illness HPI narrative: Patient is a 52-year-old female with T2DM, CHF, COPD, and recent left BKA on 09/20/22 presenting with bleeding from her stump after standing out of her wheelchair and falling to the tile floor 8 hours prior. She states that she forgot about her amputation and attempted to stand out of her wheelchair. She states that her surgical incision began to bleed and continued to bleed since the fall. She denies hitting her head, denies any head, neck, or back pain and denies any loss of consciousness. She does reports some tenderness around her surgical scar. She denies any recent fevers, new erythema or warmth, or purulent drainage from incision site. MD complaint: bleeding from surgical scar Onset (ago): hour(s) Location: lower extremity Associated symptoms: denies other symptoms Treatments prior to arrival: none Related Data Previous Rx's Medication Instructions Recorded acetaminophen 325 mg tablet 650 mg PO Q8H PRN Pain, Mild (Pain 09/21/22 Scale 1-3) 30 days #90 tabs aspirin 81 mg tablet,delayed 81 mg PO DAILY 30 days #30 tabs 09/21/22 release atorvastatin 80 mg tablet 80 mg PO BEDTIME 30 days #30 tabs 09/21/22 carvedilol 3.125 mg tablet 3.125 mg PO BID 30 days #60 tabs 09/21/22 gabapentin 100 mg capsule 200 mg PO BID 10 days #40 caps 09/21/22 polyethylene glycol 3350 17 gram 17 g PO DAILY PRN Constipation 5 09/21/22 oral powder packet days #30 ea ticagrelor 90 mg tablet (Brilinta) 90 mg PO BID 30 days #60 tabs 09/21/22 ondansetron 4 mg disintegrating 4 mg PO Q8H 3 days #9 tabs 09/24/22 tablet albuterol sulfate 2.5 mg/3 mL 1 vial inhalation Q6H PRN Wheezing 09/29/22 (0.083 %) solution for nebulization #90 mL albuterol sulfate 90 mcg/actuation 1 puff inhalation Q4H PRN Wheezing 09/29/22 aerosol inhaler (Ventolin HFA) #1 g furosemide 40 mg tablet 40 mg PO BID #30 tabs 09/29/22 gabapentin 300 mg capsule 2 cap PO BID #120 caps 09/29/22 lisinopril 20 mg tablet 20 mg PO DAILY #30 tabs 09/29/22 montelukast 10 mg tablet 1 tab PO BEDTIME #30 tabs 09/29/22 umeclidinium 62.5 mcg/actuation 1 puff PO DAILY #1 ea 09/29/22 blister powder for inhalation (Incruse Ellipta) prednisone 20 mg tablet 40 mg PO DAILY #10 tabs 10/05/22 ipratropium 0.5 mg-albuterol 3 mg 3 ml inhalation TID #90 mL 10/14/22 (2.5 mg base)/3 mL nebulization soln prednisone 20 mg tablet 20 mg PO DAILY #5 tabs 10/14/22 azithromycin 250 mg tablet 250 mg PO DAILY 4 days #4 tabs 10/21/22 cephalexin 500 mg capsule 500 mg PO Q6H 10 days #40 caps 10/21/22 doxycycline hyclate 100 mg capsule 100 mg PO BID #9 caps 10/21/22 doxycycline monohydrate 100 mg 100 mg PO BID 10 days #20 tabs 10/21/22 tablet oxycodone 5 mg tablet 5 mg PO Q6H PRN pain #7 tabs 10/21/22 prednisone 50 mg tablet 50 mg PO DAILY #4 tabs 10/21/22 furosemide 40 mg tablet 40 mg PO BID #60 tabs 10/27/22 oxycodone 5 mg tablet 5 mg PO Q6H PRN pain #20 tabs 10/31/22 morphine 15 mg immediate release 15 mg PO BID PRN pain #20 tabs 11/04/22 tablet sulfamethoxazole 800 1 tab PO BID #20 tabs 11/04/22 mg-trimethoprim 160 mg tablet (Bactrim DS) Allergies Allergy/AdvReac Type Severity Reaction Status Date / Time Penicillins [PENICILLINS] Allergy Severe RASH Verified 10/07/22 09:49 amoxicillin [AMOXICILLIN] Allergy Intermediate HIVES Verified 10/07/22 09:49 perflutren [From Definity] AdvReac Back Pain Verified 10/07/22 09:49 Review of Systems Review of Systems: As per HPI Yes all other systems are reviewed and are negative Constitutional: Constitutional: Reports as per [facility] Past Medical History Medical History Asthma Atherosclerotic cardiovascular disease Atrial tachycardia Below-knee amputation of left lower extremity Cellulitis in diabetic foot COPD (chronic obstructive pulmonary disease) Coronary artery disease COVID-19 vaccine series completed Diabetes Diabetic foot infection Diabetic foot infection Diabetic foot ulcer Diabetic toe ulcer Essential hypertension GERD (gastroesophageal reflux disease) Hyperglycemia due to diabetes mellitus Hypertension Ischemic cardiomyopathy Left against medical advice Left against medical advice Osteomyelitis Osteomyelitis 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 PAD (peripheral artery disease) Surgical History History of esophagogastroduodenoscopy (EGD) History of toe surgery (09/22/21) Status post below-knee amputation of left lower extremity (09/20/22) Family History Family History Mother Hx of CABG Sister CAD (coronary artery disease) Social History Social History Household Members: Family and Children Housing: Apartment Do you presently have visiting nurse or other home services: No Unable to assess alcohol history related to: Refusing to respond Alcohol intake: never Patient Tobacco Use Status: Current everyday Tobacco user Tobacco use type: Cigarette Cigarette Packs Per Day: 0.5 Cigarettes Per Day: 6 Years Smoked: 43 e-Cigarette/Vaping Use: Currently Using Second Hand Smoke Exposure: Yes Substance Use Type: Marijuana Advance Directives: Yes Advance Directives on File: Yes Advance Directives Date on File: 09/22/22 service: No Current occupational status: disabled Physical Exam ED Vital Signs: Vital Signs - 24 hr 11/07/22 23:06 Temperature 96.9 F Pulse Rate 90 Respiratory Rate 16 Blood Pressure 128/72 Pulse Oximetry 100 Oxygen Delivery Method Room Air BMI result Body Mass Index 24.8 Vital signs have been reviewed and appear to be correct. Blood pressure normal. Heart rate normal. Respiratory rate normal. Temperature normal. Oxygen saturation normal. Const General: cooperative, healthy appearing and no acute distress Orientation/consciousness: oriented to person, oriented to place, oriented to time and patient oriented x3 HENMT Head: Yes normocephalic and Yes atraumatic Ears: external ears normal General nose exam: Normal external nose present Face and sinus: Yes face symmetric Mouth: oropharynx normal and moist mucous membranes Throat: Yes uvula midline Eyes Pupils: Equal, round and reactive pupils present Neck Neck: Yes normal visual inspection and Yes supple Resp Effort & Inspection: normal respiratory effort and able to speak in complete sentences Auscultation: clear to auscultation bilaterally Cardio Rate: regular rate Rhythm: regular rhythm Heart sounds: S1 normal heart sound present and S2 normal heart sound present GI Palpation (GI): Soft to palpation and nontender Auscultation: normoactive bowel sounds Skin General skin exam: elasticity normal and turgor normal Neuro General: oriented to person, oriented to place, oriented to time, patient oriented x3, moves all extremities, no focal motor deficits and CN's II-XI intact bilaterally Cranial nerves: Yes Equal, round and reactive pupils present Cognition (Neuro): normal cognition Extrem General: Yes full ROM, Yes no pedal edema and Yes no calf tenderness Left lower extremity: lower leg Details: other (1cm anterior and 2cm medial superficial wound dehiscence of surgical incision with scant bleeding) Psych Mental Status: mental status grossly normal Affect: normal affect Thought process: Normal thought process present Medical Decision Making Medical Decision Making MDM Narrative: Patient is a 52-year-old female with T2DM, CHF, COPD, and recent left BKA on 09/20/22 presenting with bleeding from her stump after standing out of her wheelchair and falling to the tile floor 8 hours prior. On exam, patient is awake, A+Ox3, in no acute distress, VS WNL, normal neurological exam, superficial wound dehiscence of surgical incision from recent L BKA an anterior and medial aspects of scar with scant bleeding. No surrounding erythema, calor, or purulent drainage. Reported history and physical exam findings consistent with superficial wound dehiscence. Unlikely subcutaneous hematoma, seroma, or cellulitis. Wound cleansed, steri-strips and Kerlix applied. Patient instructed to keep this dressing in place for 24 hours and then change dressing daily and assess for signs of infection. Instructed patient to follow up with Dr. Cantu to notify him of this even and for wound check. Return precautions discussed at bedside. Differential Diagnosis Differential Diagnoses: The differential diagnosis associated with the presentation includes As above. External Record Review External record reviewed: Inpatient record, Office record and Outpatient record Chronic Conditions Patient?s care impacted by: Diabetes Discharge Plan Discharge Clinical Impression: Wound dehiscence Patient Disposition: Home, Self-Care Instructions: Acute Wounds (DC) Additional Instructions: You were evaluated in the emergency department for bleeding from your surgical scars after a fall. The bleeding is well controlled and a new dressing was applied. Please keep this dressing in place for the next 24 hours, and then change the dressing daily and assess the wound for signs of infection. Contact your surgeon, Dr. Cantu, in the office tomorrow to notify him of this event. Return to the emergency department for uncontrolled bleeding, fever 100.4F or greater, new redness around your incision, warmth around your incision, or any other concerning symptoms. Prescriptions: No Action oxycodone 5 mg tablet 5 mg PO Q6H PRN (Reason: pain) Qty: 20 0RF Rx Instructions: Partial Fill upon patient request. furosemide 40 mg Tablet 40 mg PO BID Qty: 30 0RF albuterol sulfate 2.5 mg /3 mL (0.083 %) solution for nebulization 1 vial inhalation Q6H PRN (Reason: Wheezing) Qty: 90 0RF lisinopril 20 mg tablet 20 mg PO DAILY Qty: 30 0RF gabapentin 300 mg capsule 2 cap PO BID Qty: 120 0RF montelukast 10 mg tablet 1 tab PO BEDTIME Qty: 30 0RF albuterol sulfate [Ventolin HFA] 90 mcg/actuation HFA aerosol inhaler 1 puff INHALATION Q4H PRN (Reason: Wheezing) Qty: 1 0RF Incruse Ellipta 62.5 mcg/actuation blister with device 1 puff PO DAILY Qty: 1 0RF prednisone 20 mg tablet 40 mg PO DAILY Qty: 10 0RF atorvastatin 80 mg Tablet 80 mg PO BEDTIME 30 Days Qty: 30 0RF acetaminophen 325 mg Tablet 650 mg PO Q8H PRN (Reason: Pain, Mild (Pain Scale 1-3)) 30 Days Qty: 90 0RF polyethylene glycol 3350 17 gram Powder In Packet 17 g PO DAILY PRN (Reason: Constipation) 5 Days Qty: 30 0RF aspirin 81 mg Tablet,Delayed Release (Dr/Ec) 81 mg PO DAILY 30 Days Qty: 30 0RF carvedilol 3.125 mg Tablet 3.125 mg PO BID 30 Days Qty: 60 0RF Protocol: Hold for SBP/HR < HOLD for SBP < : 90 HOLD for HR < : 60 gabapentin 100 mg Capsule 200 mg PO BID 10 Days Qty: 40 0RF Brilinta 90 mg Tablet 90 mg PO BID 30 Days Qty: 60 0RF ondansetron 4 mg tablet,disintegrating 4 mg PO Q8H 3 Days Qty: 9 0RF ipratropium-albuterol 0.5 mg-3 mg(2.5 mg base)/3 mL solution for nebulization 3 ml inhalation TID Qty: 90 0RF prednisone 20 mg tablet 20 mg PO DAILY Qty: 5 0RF azithromycin 250 mg tablet 250 mg PO DAILY 4 Days Qty: 4 0RF Rx Instructions: start on day 2 of therapy doxycycline hyclate 100 mg capsule 100 mg PO BID Qty: 9 0RF prednisone 50 mg tablet 50 mg PO DAILY Qty: 4 0RF doxycycline monohydrate 100 mg tablet 100 mg PO BID 10 Days Qty: 20 0RF cephalexin 500 mg capsule 500 mg PO Q6H 10 Days Qty: 40 0RF oxycodone 5 mg tablet 5 mg PO Q6H PRN (Reason: pain) Qty: 7 0RF Rx Instructions: Partial Fill upon patient request. furosemide 40 mg tablet 40 mg PO BID Qty: 60 2RF sulfamethoxazole-trimethoprim [Bactrim DS] 800-160 mg tablet 1 tab PO BID Qty: 20 0RF morphine 15 mg tablet 15 mg PO BID PRN (Reason: pain) Qty: 20 0RF Rx Instructions: Partial Fill upon patient request. Referrals: Luis Miguel Cantu MD [Physician] -
== END 2022-11-08 00:35 | disposition home or self-care (01) ==
PROVIDERS: Emergency Provider Internal Medicine
DX: M25.562 Pain in left knee (principal); F17.210 Nicotine dependence, cigarettes, uncomplicated; Z71.6 Tobacco abuse counseling; Z79.899 Other long term (current) drug therapy
CPT/HCPCS: 99282

== ENCOUNTER 2022-11-11 18:14 | Emergency (ER) | payer OTHER, SELFPAY | END 2022-11-11 19:34 | disposition left against medical advice (07) | PROVIDERS: Emergency Provider Emergency Medicine | DX: T14.8XXA Other injury of unspecified body region, initial encounter (principal); X58.XXXA Exposure to other specified factors, initial encounter ==

== ENCOUNTER 2022-11-12 19:40 | Emergency (ER) | payer OTHER, SELFPAY ==
[2022-11-12 19:47] VITALS: BP 139/84; PULSE 112; RESP 16; TEMP 36; O2SAT 99; BMI 24.8
--- NOTE | 2022-11-12 19:50 | ED_ITS ---
HPI - General Adult General Chief complaint: Extremity Injury, Lower Stated complaint: leg pain Time Seen by Provider: 11/12/22 22:01 Source: patient Mode of arrival: wheelchair Limitations: no limitations History of Present Illness HPI narrative: Patient is a 52 year old assigned female at with a history of type 2 diabetes, left sided BKA, CHF, and NSTEMI presenting to the emergency department today with bleeding from her left stump and a hole in her right heel. Patient states that she believes she is having bleeding from her left leg stump and the hole in her right foot is getting worse. Patient denies any dizziness, lightheadedness, abdominal pain, nausea, vomiting, fever, chills, blurry vision, double vision, loss of vision, chest pain, difficulty breathing, shortness of breath, back pain, night sweats, pain with urination, increased urinary frequency, increased urinary urgency, blood in her urine or stool, syncope or a near syncopal episode, recent trauma or falls, bowel incontinence, bladder incontinence, bowel retention, bladder retention, or any other complaints at this time. Onset (ago): day(s) Severity: mild Relieving factors: none Exacerbating factors: none Associated symptoms: denies other symptoms Treatments prior to arrival: none Related Data Previous Rx's Medication Instructions Recorded acetaminophen 325 mg tablet 650 mg PO Q8H PRN Pain, Mild (Pain 09/21/22 Scale 1-3) 30 days #90 tabs aspirin 81 mg tablet,delayed 81 mg PO DAILY 30 days #30 tabs 09/21/22 release atorvastatin 80 mg tablet 80 mg PO BEDTIME 30 days #30 tabs 09/21/22 carvedilol 3.125 mg tablet 3.125 mg PO BID 30 days #60 tabs 09/21/22 gabapentin 100 mg capsule 200 mg PO BID 10 days #40 caps 09/21/22 polyethylene glycol 3350 17 gram 17 g PO DAILY PRN Constipation 5 09/21/22 oral powder packet days #30 ea ticagrelor 90 mg tablet (Brilinta) 90 mg PO BID 30 days #60 tabs 09/21/22 ondansetron 4 mg disintegrating 4 mg PO Q8H 3 days #9 tabs 09/24/22 tablet albuterol sulfate 2.5 mg/3 mL 1 vial inhalation Q6H PRN Wheezing 09/29/22 (0.083 %) solution for nebulization #90 mL albuterol sulfate 90 mcg/actuation 1 puff inhalation Q4H PRN Wheezing 09/29/22 aerosol inhaler (Ventolin HFA) #1 g furosemide 40 mg tablet 40 mg PO BID #30 tabs 09/29/22 gabapentin 300 mg capsule 2 cap PO BID #120 caps 09/29/22 lisinopril 20 mg tablet 20 mg PO DAILY #30 tabs 09/29/22 montelukast 10 mg tablet 1 tab PO BEDTIME #30 tabs 09/29/22 umeclidinium 62.5 mcg/actuation 1 puff PO DAILY #1 ea 09/29/22 blister powder for inhalation (Incruse Ellipta) prednisone 20 mg tablet 40 mg PO DAILY #10 tabs 10/05/22 ipratropium 0.5 mg-albuterol 3 mg 3 ml inhalation TID #90 mL 10/14/22 (2.5 mg base)/3 mL nebulization soln prednisone 20 mg tablet 20 mg PO DAILY #5 tabs 10/14/22 azithromycin 250 mg tablet 250 mg PO DAILY 4 days #4 tabs 10/21/22 cephalexin 500 mg capsule 500 mg PO Q6H 10 days #40 caps 10/21/22 doxycycline hyclate 100 mg capsule 100 mg PO BID #9 caps 10/21/22 doxycycline monohydrate 100 mg 100 mg PO BID 10 days #20 tabs 10/21/22 tablet oxycodone 5 mg tablet 5 mg PO Q6H PRN pain #7 tabs 10/21/22 prednisone 50 mg tablet 50 mg PO DAILY #4 tabs 10/21/22 furosemide 40 mg tablet 40 mg PO BID #60 tabs 10/27/22 morphine 15 mg immediate release 15 mg PO BID PRN pain #20 tabs 11/04/22 tablet sulfamethoxazole 800 1 tab PO BID #20 tabs 11/04/22 mg-trimethoprim 160 mg tablet (Bactrim DS) oxycodone 5 mg tablet 5 mg PO Q6H PRN pain #20 tabs 11/14/22 Allergies Allergy/AdvReac Type Severity Reaction Status Date / Time Penicillins [PENICILLINS] Allergy Severe RASH Verified 11/12/22 19:47 amoxicillin [AMOXICILLIN] Allergy Intermediate HIVES Verified 11/12/22 19:47 perflutren [From Definity] AdvReac Back Pain Verified 11/12/22 19:47 Review of Systems Constitutional: Constitutional: Reports no additional constitutional complaints, Denies chills, Denies fever(s) and Denies night sweats Eyes: Eyes: Reports no additional eye complaints, Denies blurry vision, Denies change in vision, Denies diplopia, Denies eye discharge, Denies loss of vision and Denies eye pain ENT: Denies dizziness Cardiovascular: Cardiovascular: Reports no additional cardiovascular complaints, Denies chest pain, Denies lightheadedness, Denies Loss of Consciousness and Denies dyspnea Respiratory: Respiratory: Reports no additional respiratory complaints and Denies dyspnea Gastrointestinal: Gastrointestinal: Reports no additional gastrointestinal complaints, Denies abdominal pain, Denies melena, Denies hematochezia, Denies change in bowel habits and Denies change in stool character Genitourinary: Genitourinary: Denies hematuria, Denies urinary frequency, Denies dysuria, Denies urinary incontinence, Denies urinary hesitancy and Denies urinary urgency Musculoskeletal: Musculoskeletal: Reports no additional musculoskeletal complaints, Denies numbness and Denies tingling Comments: left BKA amp site bleeding and worsening hole in right heel Neurologic: Denies dizziness, Denies loss of vision, Denies numbness and Denies tingling Psychiatric: Psychiatric: Reports no additional psychiatric complaints Endocrine: Endocrine: Reports no additional endocrine complaints Hematologic/Lymphatic: Hematologic/Lymphatic: Reports no additional hematologic/lymphatic complaints Allergic/Immunologic: Allergic/Immunologic: Reports no additional allergic/imm unologic complaints PMFSH Past Medical History Attestation statement: The following information was validated with the patient. Source: old records reviewed and nursing notes reviewed Medical History Asthma Atherosclerotic cardiovascular disease Atrial tachycardia Below-knee amputation of left lower extremity Cellulitis in diabetic foot COPD (chronic obstructive pulmonary disease) Coronary artery disease COVID-19 vaccine series completed Diabetes Diabetic foot infection Diabetic foot infection Diabetic foot ulcer Diabetic toe ulcer Essential hypertension GERD (gastroesophageal reflux disease) Hyperglycemia due to diabetes mellitus Hypertension Ischemic cardiomyopathy Left against medical advice Left against medical advice Osteomyelitis Osteomyelitis 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 PAD (peripheral artery disease) Surgical History History of esophagogastroduodenoscopy (EGD) History of toe surgery (09/22/21) Status post below-knee amputation of left lower extremity (09/20/22) Family History Family History Mother Hx of CABG Sister CAD (coronary artery disease) Social History Social History Household Members: Family and Children Housing: Apartment Do you presently have visiting nurse or other home services: No Unable to assess alcohol history related to: Refusing to respond Alcohol intake: never Patient Tobacco Use Status: Current everyday Tobacco user Tobacco use type: Cigarette Cigarette Packs Per Day: 0.5 Cigarettes Per Day: 6 Years Smoked: 43 Smoked in Last 30 Days: Yes e-Cigarette/Vaping Use: Currently Using Second Hand Smoke Exposure: Yes Use of substances other than those prescribed or required for medical reasons: No Substance Use Type: Marijuana Advance Directives: Yes Advance Directives on File: Yes Advance Directives Date on File: 09/22/22 Patient : No service: No Current occupational status: disabled Physical Exam ED Vital Signs: Vital Signs - 24 hr 11/12/22 19:47 Temperature 96.8 F Pulse Rate 112 H Respiratory Rate 16 Blood Pressure 139/84 Pulse Oximetry 99 Oxygen Delivery Method Room Air BMI result Body Mass Index 24.8 Const General: cooperative, no acute distress, alert and awake Nutritional Appearance: well nourished Orientation/consciousness: patient oriented x3 Limitations: no limitations HENMT Head: Yes normal to inspection and Yes atraumatic Ears: hearing grossly normal bilaterally and external ears normal General nose exam: Normal external nose present, no nasal discharge noted and no epistaxis Face and sinus: Yes normal facial exam, No abrasion and No laceration Mouth: Normal oral and palatal mucosa present, no drooling and no muffled voice Eyes General: appearance normal, both eyes and all related structures Periorbital: periorbital findings normal Eyelids: Yes eyelids normal Conjunctivae: conjunctivae normal Pupils: Equal, round and reactive pupils present EOM: EOMs intact bilaterally Neck Neck: Yes normal visual inspection, Yes full ROM and Yes no lymphadenopathy Chest Chest palpation & inspection: normal inspection of the chest Resp Effort & Inspection: normal respiratory effort and able to speak in complete sentences GI Inspection: Yes normal to inspection Neuro General: patient oriented x3 and moves all extremities Cranial nerves: Yes Equal, round and reactive pupils present Cognition (Neuro): normal cognition Motor exam (neuro): 5/5 motor strength present throughout Sensory Exam: Normal double simultaneous stimulation for sensation Coordination: [id number] test normal Extrem Other: left BKA appropriately heeling, chronic would to the right heel - no erythema or swelling General: Yes capillary refill normal Psych Appearance: grossly normal Mental Status: mental status grossly normal Affect: normal affect Attitude: cooperative Thought process: Normal thought process present Thought content: Normal thought content present Insight: Good insight present (Psych) Course Course Course Narrative: RME performed by Ashley Gill PA-C. Patient is a 52 year old assigned female at presenting to the emergency department with bleeding from her previous amputation stump and foot pain of the other leg. Patient states that she attempted to be seen yesterday but we were too busy. Patient states that she got a phone call from someone this evening who informed her that the emergency department was slow and recommended she come in. Patient refused to reveal her source for this information. Patient placed back in the waiting room pending room availability. Medical Decision Making Medical Decision Making MDM Narrative: Patient is a 52 year old assigned female at with a history of type 2 DM, left BKA, CHF, COPD, and NSTEMI presenting to the emergency department today with left sump bleeding and a chronic right heel wound. Patient's physical exam was as noted in the physical exam portion of this chart. Patient eloped from the department before myself or any other provider in the department could explain her physical exam findings or treatment plan. Differential Diagnosis Differential Diagnoses: The differential diagnosis associated with the presentation includes left BKA, chronic right heel wound Discharge Plan Discharge Clinical Impression: Below-knee amputation of left lower extremity Patient Disposition: Elopement Prescriptions: No Action oxycodone 5 mg tablet 5 mg PO Q6H PRN (Reason: pain) Qty: 20 0RF Rx Instructions: Partial Fill upon patient request. furosemide 40 mg Tablet 40 mg PO BID Qty: 30 0RF albuterol sulfate 2.5 mg /3 mL (0.083 %) solution for nebulization 1 vial inhalation Q6H PRN (Reason: Wheezing) Qty: 90 0RF lisinopril 20 mg tablet 20 mg PO DAILY Qty: 30 0RF gabapentin 300 mg capsule 2 cap PO BID Qty: 120 0RF montelukast 10 mg tablet 1 tab PO BEDTIME Qty: 30 0RF albuterol sulfate [Ventolin HFA] 90 mcg/actuation HFA aerosol inhaler 1 puff INHALATION Q4H PRN (Reason: Wheezing) Qty: 1 0RF Incruse Ellipta 62.5 mcg/actuation blister with device 1 puff PO DAILY Qty: 1 0RF prednisone 20 mg tablet 40 mg PO DAILY Qty: 10 0RF atorvastatin 80 mg Tablet 80 mg PO BEDTIME 30 Days Qty: 30 0RF acetaminophen 325 mg Tablet 650 mg PO Q8H PRN (Reason: Pain, Mild (Pain Scale 1-3)) 30 Days Qty: 90 0RF polyethylene glycol 3350 17 gram Powder In Packet 17 g PO DAILY PRN (Reason: Constipation) 5 Days Qty: 30 0RF aspirin 81 mg Tablet,Delayed Release (Dr/Ec) 81 mg PO DAILY 30 Days Qty: 30 0RF carvedilol 3.125 mg Tablet 3.125 mg PO BID 30 Days Qty: 60 0RF Protocol: Hold for SBP/HR < HOLD for SBP < : 90 HOLD for HR < : 60 gabapentin 100 mg Capsule 200 mg PO BID 10 Days Qty: 40 0RF Brilinta 90 mg Tablet 90 mg PO BID 30 Days Qty: 60 0RF ondansetron 4 mg tablet,disintegrating 4 mg PO Q8H 3 Days Qty: 9 0RF ipratropium-albuterol 0.5 mg-3 mg(2.5 mg base)/3 mL solution for nebulization 3 ml inhalation TID Qty: 90 0RF prednisone 20 mg tablet 20 mg PO DAILY Qty: 5 0RF azithromycin 250 mg tablet 250 mg PO DAILY 4 Days Qty: 4 0RF Rx Instructions: start on day 2 of therapy doxycycline hyclate 100 mg capsule 100 mg PO BID Qty: 9 0RF prednisone 50 mg tablet 50 mg PO DAILY Qty: 4 0RF doxycycline monohydrate 100 mg tablet 100 mg PO BID 10 Days Qty: 20 0RF cephalexin 500 mg capsule 500 mg PO Q6H 10 Days Qty: 40 0RF oxycodone 5 mg tablet 5 mg PO Q6H PRN (Reason: pain) Qty: 7 0RF Rx Instructions: Partial Fill upon patient request. furosemide 40 mg tablet 40 mg PO BID Qty: 60 2RF sulfamethoxazole-trimethoprim [Bactrim DS] 800-160 mg tablet 1 tab PO BID Qty: 20 0RF morphine 15 mg tablet 15 mg PO BID PRN (Reason: pain) Qty: 20 0RF Rx Instructions: Partial Fill upon patient request. Interventions: ED Discharge Assessment Last Done: 11/12/22 22:39 Discharge Date/Time: 11/12/22 22:39
--- NOTE | 2022-11-12 22:38 | PC.NURSE ---
photographic laboratory technician reported Pt was wheeled out by visitor, upon entering room Pt not in room at this time.
== END 2022-11-12 22:39 | disposition left against medical advice (07) ==
PROVIDERS: Emergency Provider Emergency Medicine
DX: M79.604 Pain in right leg (principal); Z79.899 Other long term (current) drug therapy
CPT/HCPCS: 99282; 99284

== ENCOUNTER 2022-11-18 17:55 | Emergency (ER) | payer OTHER, SELFPAY ==
[2022-11-18 18:32] VITALS: BP 120/69; PULSE 108; RESP 15; TEMP 36.8; O2SAT 97; BMI 24.8
--- NOTE | 2022-11-18 18:33 | ED.GENADULT ---
HPI - General Adult General Chief complaint: Extremity Problem Stated complaint: open wound/ Post Op Time Seen by Provider: 11/18/22 22:10 Related Data Home Medications Medication Instructions Recorded Confirmed clopidogrel 75 mg tablet 75 mg PO DAILY 11/24/22 11/26/22 glipizide 5 mg-metformin 500 mg 2 tab PO BID 11/24/22 11/26/22 tablet morphine 15 mg tablet,extended 15 mg PO Q12H PAIN 11/26/22 11/26/22 release nicotine 21 mg/24 hr daily 1 patch topical DAILY 11/26/22 11/26/22 transdermal patch Previous Rx's Medication Instructions Recorded acetaminophen 325 mg tablet 650 mg PO Q8H PRN Pain, Mild (Pain 09/21/22 Scale 1-3) 30 days #90 tabs atorvastatin 80 mg tablet 80 mg PO BEDTIME 30 days #30 tabs 09/21/22 carvedilol 3.125 mg tablet 3.125 mg PO BID 30 days #60 tabs 09/21/22 polyethylene glycol 3350 17 gram 17 g PO DAILY PRN Constipation 5 09/21/22 oral powder packet days #30 ea albuterol sulfate 2.5 mg/3 mL 1 vial inhalation Q6H PRN Wheezing 09/29/22 (0.083 %) solution for nebulization #90 mL albuterol sulfate 90 mcg/actuation 1 puff inhalation Q4H PRN Wheezing 09/29/22 aerosol inhaler (Ventolin HFA) #1 g gabapentin 300 mg capsule 2 cap PO BID #120 caps 09/29/22 lisinopril 20 mg tablet 20 mg PO DAILY #30 tabs 09/29/22 montelukast 10 mg tablet 1 tab PO BEDTIME #30 tabs 09/29/22 umeclidinium 62.5 mcg/actuation 1 puff PO DAILY #1 ea 09/29/22 blister powder for inhalation (Incruse Ellipta) ipratropium 0.5 mg-albuterol 3 mg 3 ml inhalation TID #90 mL 10/14/22 (2.5 mg base)/3 mL nebulization soln oxycodone 5 mg tablet 5 mg PO Q6H PRN pain #7 tabs 10/21/22 furosemide 40 mg tablet 40 mg PO BID #60 tabs 10/27/22 silver-hydrocolloid dressing 1.2 1 ea topical Q OTHER DAY 1 month 11/22/22 %-3.5 X 4 (Aquacel-AG) #10 ea Allergies Allergy/AdvReac Type Severity Reaction Status Date / Time Penicillins [PENICILLINS] Allergy Severe RASH Verified 11/22/22 14:46 amoxicillin [AMOXICILLIN] Allergy Intermediate HIVES Verified 11/22/22 14:46 perflutren [From Definity] AdvReac Back Pain Verified 11/22/22 14:46 PMFSH Past Medical History Medical History Asthma Atherosclerotic cardiovascular disease Atrial tachycardia Below-knee amputation of left lower extremity Cellulitis in diabetic foot COPD (chronic obstructive pulmonary disease) Coronary artery disease COVID-19 vaccine series completed Diabetes Diabetic foot infection Diabetic foot infection Diabetic foot ulcer Diabetic toe ulcer Essential hypertension GERD (gastroesophageal reflux disease) Hyperglycemia due to diabetes mellitus Hypertension Ischemic cardiomyopathy Left against medical advice Left against medical advice Osteomyelitis Osteomyelitis 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 PAD (peripheral artery disease) Surgical History History of esophagogastroduodenoscopy (EGD) History of toe surgery (09/22/21) Status post below-knee amputation of left lower extremity (09/20/22) Family History Family History Mother Hx of CABG Sister CAD (coronary artery disease) Social History Social History Household Members: Significant Other and Children Housing: Apartment Do you presently have visiting nurse or other home services: Yes Unable to assess alcohol history related to: Refusing to respond Alcohol intake: never Patient Tobacco Use Status: Current everyday Tobacco user Tobacco use type: Cigarette Cigarette Packs Per Day: 0.5 Cigarettes Per Day: 6 Years Smoked: 43 e-Cigarette/Vaping Use: Currently Using Second Hand Smoke Exposure: Yes Substance Use Type: Marijuana Advance Directives Date on File: 09/22/22 service: No Current occupational status: disabled Physical Exam ED Vital Signs: Vital Signs - 24 hr 11/18/22 18:32 11/18/22 21:47 11/18/22 23:34 Temperature 98.2 F 98.0 F 98.4 F Pulse Rate 108 H 105 H 107 H Respiratory Rate 15 16 20 Blood Pressure 120/69 126/77 129/90 H Pulse Oximetry 97 100 100 Oxygen Delivery Method Room Air Room Air Room Air BMI result Body Mass Index 24.8 Course Course Course Narrative: This is an RME: Additional HPI, ROS, PE not included below will be deferred to primary provider. This is a [id number], with a history of type 2 diabetes, left sided BKA, CHF, and NSTEMI presenting to the emergency department with complaints of clear drainage from her amputation site. Had L BKA on September 20. On exam, L BKA with slight wound dehiscence with clear/yellow drainage expressed from this area. Not warm. Plan: Pt refused basic labs. Will wait for evaluation in main ER for further workup and evaluation. Discharge Plan Discharge Clinical Impression: Dehiscence of wound Patient Disposition: Home, Self-Care Instructions: Wound Dehiscence (ED) Additional Instructions: Please follow-up with your primary care physician tomorrow. If you have any worsening or new symptoms, please return to the emergency room or call 911 Prescriptions: No Action albuterol sulfate 2.5 mg /3 mL (0.083 %) solution for nebulization 1 vial inhalation Q6H PRN (Reason: Wheezing) Qty: 90 0RF lisinopril 20 mg tablet 20 mg PO DAILY Qty: 30 0RF gabapentin 300 mg capsule 2 cap PO BID Qty: 120 0RF montelukast 10 mg tablet 1 tab PO BEDTIME Qty: 30 0RF albuterol sulfate [Ventolin HFA] 90 mcg/actuation HFA aerosol inhaler 1 puff INHALATION Q4H PRN (Reason: Wheezing) Qty: 1 0RF Incruse Ellipta 62.5 mcg/actuation blister with device 1 puff PO DAILY Qty: 1 0RF atorvastatin 80 mg Tablet 80 mg PO BEDTIME 30 Days Qty: 30 0RF acetaminophen 325 mg Tablet 650 mg PO Q8H PRN (Reason: Pain, Mild (Pain Scale 1-3)) 30 Days Qty: 90 0RF polyethylene glycol 3350 17 gram Powder In Packet 17 g PO DAILY PRN (Reason: Constipation) 5 Days Qty: 30 0RF carvedilol 3.125 mg Tablet 3.125 mg PO BID 30 Days Qty: 60 0RF Protocol: Hold for SBP/HR < HOLD for SBP < : 90 HOLD for HR < : 60 ipratropium-albuterol 0.5 mg-3 mg(2.5 mg base)/3 mL solution for nebulization 3 ml inhalation TID Qty: 90 0RF oxycodone 5 mg tablet 5 mg PO Q6H PRN (Reason: pain) Qty: 7 0RF Rx Instructions: Partial Fill upon patient request. furosemide 40 mg tablet 40 mg PO BID Qty: 60 2RF glipizide-metformin 5-500 mg tablet 2 tab PO BID clopidogrel 75 mg tablet 75 mg PO DAILY nicotine 21 mg/24 hr patch 24 hour 1 patch topical DAILY morphine 15 mg Tablet Extended Release 15 mg PO Q12H Aquacel-AG 1.2-3.5 X 4 %- bandage 1 ea topical Q OTHER DAY 30 Days Qty: 10 0RF Rx Instructions: cut portion of bandage to cover open wound, apply every other day. Cover with 4x4 gauze, 4 inch ann, and 4 inch AIDAN. Interventions: ED Discharge Assessment Last Done: 11/18/22 23:40 Discharge Date/Time: 11/18/22 23:47
[2022-11-18 21:47] VITALS: BP 126/77; PULSE 105; RESP 16; TEMP 36.7; O2SAT 100
--- NOTE | 2022-11-18 21:59 | PC.NURSE ---
Assumed care of pt. Pt lying on stretcher, sig other at bedside. Pt intermittently crying, c/o pain to LLE. Sts ran out of pain medication x 1 day FLARE MAN. Sts VNA dressed surgical site too tight and now has increased pain.
--- NOTE | 2022-11-18 23:27 | ED_ITS ---
HPI - Extremity Problem General Chief complaint: Extremity Problem Stated complaint: open wound/ Post Op Time Seen by Provider: 11/18/22 22:10 Source: patient Mode of arrival: wheelchair Limitations: no limitations History of Present Illness HPI Narrative: Patient comes to the emergency room complaining of a wound dehiscence on her left BKA. Patient states that she ran out of oxycodone. Patient denies fever chills Related Data Previous Rx's Medication Instructions Recorded acetaminophen 325 mg tablet 650 mg PO Q8H PRN Pain, Mild (Pain 09/21/22 Scale 1-3) 30 days #90 tabs aspirin 81 mg tablet,delayed 81 mg PO DAILY 30 days #30 tabs 09/21/22 release atorvastatin 80 mg tablet 80 mg PO BEDTIME 30 days #30 tabs 09/21/22 carvedilol 3.125 mg tablet 3.125 mg PO BID 30 days #60 tabs 09/21/22 gabapentin 100 mg capsule 200 mg PO BID 10 days #40 caps 09/21/22 polyethylene glycol 3350 17 gram 17 g PO DAILY PRN Constipation 5 09/21/22 oral powder packet days #30 ea ticagrelor 90 mg tablet (Brilinta) 90 mg PO BID 30 days #60 tabs 09/21/22 ondansetron 4 mg disintegrating 4 mg PO Q8H 3 days #9 tabs 09/24/22 tablet albuterol sulfate 2.5 mg/3 mL 1 vial inhalation Q6H PRN Wheezing 09/29/22 (0.083 %) solution for nebulization #90 mL albuterol sulfate 90 mcg/actuation 1 puff inhalation Q4H PRN Wheezing 09/29/22 aerosol inhaler (Ventolin HFA) #1 g furosemide 40 mg tablet 40 mg PO BID #30 tabs 09/29/22 gabapentin 300 mg capsule 2 cap PO BID #120 caps 09/29/22 lisinopril 20 mg tablet 20 mg PO DAILY #30 tabs 09/29/22 montelukast 10 mg tablet 1 tab PO BEDTIME #30 tabs 09/29/22 umeclidinium 62.5 mcg/actuation 1 puff PO DAILY #1 ea 09/29/22 blister powder for inhalation (Incruse Ellipta) prednisone 20 mg tablet 40 mg PO DAILY #10 tabs 10/05/22 ipratropium 0.5 mg-albuterol 3 mg 3 ml inhalation TID #90 mL 10/14/22 (2.5 mg base)/3 mL nebulization soln prednisone 20 mg tablet 20 mg PO DAILY #5 tabs 10/14/22 azithromycin 250 mg tablet 250 mg PO DAILY 4 days #4 tabs 10/21/22 cephalexin 500 mg capsule 500 mg PO Q6H 10 days #40 caps 10/21/22 doxycycline hyclate 100 mg capsule 100 mg PO BID #9 caps 10/21/22 doxycycline monohydrate 100 mg 100 mg PO BID 10 days #20 tabs 10/21/22 tablet oxycodone 5 mg tablet 5 mg PO Q6H PRN pain #7 tabs 10/21/22 prednisone 50 mg tablet 50 mg PO DAILY #4 tabs 10/21/22 furosemide 40 mg tablet 40 mg PO BID #60 tabs 10/27/22 morphine 15 mg immediate release 15 mg PO BID PRN pain #20 tabs 11/04/22 tablet sulfamethoxazole 800 1 tab PO BID #20 tabs 11/04/22 mg-trimethoprim 160 mg tablet (Bactrim DS) oxycodone 5 mg tablet 5 mg PO Q6H PRN pain #20 tabs 11/14/22 oxycodone 5 mg tablet 5 mg PO BID PRN pain #6 tabs 11/18/22 Allergies Allergy/AdvReac Type Severity Reaction Status Date / Time Penicillins [PENICILLINS] Allergy Severe RASH Verified 11/12/22 19:47 amoxicillin [AMOXICILLIN] Allergy Intermediate HIVES Verified 11/12/22 19:47 perflutren [From Definity] AdvReac Back Pain Verified 11/12/22 19:47 Review of Systems Review of Systems: Constitutional : No Weight loss, No Fever, No Chills, No Night Sweats, No Fatigue, No Malaise ENT/Mouth : No Hearing loss, No Ear Pain, No Nasal Congestion, No Sinus Pain, No Hoarseness, No sore throat, No Rhinorrhea, No Swallowing Difficulty Eyes: No Eye Pain, No Swelling, No Redness, No Foreign Body, No Discharge, No Vision Changes Cardiovascular : No Chest Pain, No SOB, No Dyspnea on Exertion, No Orthopnea, No Edema, No Palpitations Respiratory : No Cough, No Sputum, No Wheezing, No Smoke Exposure, No Dyspnea Gastrointestinal : No Nausea, No Vomiting, No Diarrhea, No Constipation, No abdominal Pain, No Hematochezia, No Melena Genitourinary : no irregular bleeding, No Dysuria, No Urinary Frequency, No Hematuria, No Urinary Incontinence, No Urgency, No Flank Pain, No Urinary Flow Changes, No Hesitancy Musculoskeletal : No joint pain, No Myalgias, No Joint Swelling Skin : No Skin Lesions, small BKA dehiscence Neuro : No Weakness, No Numbness, No Paresthesias, No Loss of Consciousness, No Dizziness, No Headache Psych : No Anxiety/Panic, No Depression, No SI/HI/AH/VH, No Social Issues, Heme/Lymph: No Bruising, No Bleeding,No Lymphadenopathy Endocrine : No Polyuria, No Polydipsia, No Temperature Intolerance [facility] Past Medical History Medical History Asthma Atherosclerotic cardiovascular disease Atrial tachycardia Below-knee amputation of left lower extremity Cellulitis in diabetic foot COPD (chronic obstructive pulmonary disease) Coronary artery disease COVID-19 vaccine series completed Diabetes Diabetic foot infection Diabetic foot infection Diabetic foot ulcer Diabetic toe ulcer Essential hypertension GERD (gastroesophageal reflux disease) Hyperglycemia due to diabetes mellitus Hypertension Ischemic cardiomyopathy Left against medical advice Left against medical advice Osteomyelitis Osteomyelitis 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 PAD (peripheral artery disease) Surgical History History of esophagogastroduodenoscopy (EGD) History of toe surgery (09/22/21) Status post below-knee amputation of left lower extremity (09/20/22) Family History Family History Mother Hx of CABG Sister CAD (coronary artery disease) Social History Social History Household Members: Family and Children Housing: Apartment Do you presently have visiting nurse or other home services: No Unable to assess alcohol history related to: Refusing to respond Alcohol intake: never Patient Tobacco Use Status: Current everyday Tobacco user Tobacco use type: Cigarette Cigarette Packs Per Day: 0.5 Cigarettes Per Day: 6 Years Smoked: 43 Smoked in Last 30 Days: Yes e-Cigarette/Vaping Use: Currently Using Second Hand Smoke Exposure: Yes Use of substances other than those prescribed or required for medical reasons: No Substance Use Type: Marijuana Advance Directives: Yes Advance Directives on File: Yes Advance Directives Date on File: 09/22/22 Patient : No service: No Current occupational status: disabled Physical Exam Vital Signs: Vital Signs: Last Vital Signs Temp 98.0 F 11/18/22 21:47 Pulse 105 H 11/18/22 21:47 Resp 16 11/18/22 21:47 BP 126/77 11/18/22 21:47 Pulse Ox 100 11/18/22 21:47 O2 Del Method Room Air 11/18/22 21:47 BMI result Body Mass Index 24.8 Const: Other: Appearance: Alert. Oriented X3. No acute distress. Eyes: Pupils equal, round and reactive to light. ENT: Pharynx normal. Neck: Normal inspection. Neck supple. No lymph nodes noted. No crepitus CVS: Normal heart rate and rhythm. Pulses normal. Normal S1 and S2 Respiratory: No respiratory distress. Breath sounds normal. No Wheezing. No rales Abdomen: Soft and nontender. No rigidity. No distention. Skin: Skin warm and dry. Normal skin color. Normal skin turgor. Extremities: No lower extremity edema on the right leg, there is a 1 cm dehiscence on the BKA, no drainage, no purulence, no erythema or signs of cellulitis Neuro: Oriented X 3. No motor deficit. No sensory deficit. Moving all extremities. No slurred speech. CN 2 through 12 grossly intact Psych: calm, cooperative, normal affect Medical Decision Making Medical Decision Making MDM Narrative: -I discussed the physical exam with the patient, no need for labs at this time, patient instructed to follow-up with the [facility], provided with the phone number. Discharge Plan Discharge Clinical Impression: Dehiscence of wound Patient Disposition: Home, Self-Care Instructions: Wound Dehiscence (ED) Additional Instructions: Please follow-up with your primary care physician tomorrow. If you have any worsening or new symptoms, please return to the emergency room or call 911 Prescriptions: New oxycodone 5 mg tablet 5 mg PO BID PRN (Reason: pain) Qty: 6 0RF Rx Instructions: Partial Fill upon patient request. No Action oxycodone 5 mg tablet 5 mg PO Q6H PRN (Reason: pain) Qty: 20 0RF Rx Instructions: Partial Fill upon patient request. furosemide 40 mg Tablet 40 mg PO BID Qty: 30 0RF albuterol sulfate 2.5 mg /3 mL (0.083 %) solution for nebulization 1 vial inhalation Q6H PRN (Reason: Wheezing) Qty: 90 0RF lisinopril 20 mg tablet 20 mg PO DAILY Qty: 30 0RF gabapentin 300 mg capsule 2 cap PO BID Qty: 120 0RF montelukast 10 mg tablet 1 tab PO BEDTIME Qty: 30 0RF albuterol sulfate [Ventolin HFA] 90 mcg/actuation HFA aerosol inhaler 1 puff INHALATION Q4H PRN (Reason: Wheezing) Qty: 1 0RF Incruse Ellipta 62.5 mcg/actuation blister with device 1 puff PO DAILY Qty: 1 0RF prednisone 20 mg tablet 40 mg PO DAILY Qty: 10 0RF atorvastatin 80 mg Tablet 80 mg PO BEDTIME 30 Days Qty: 30 0RF acetaminophen 325 mg Tablet 650 mg PO Q8H PRN (Reason: Pain, Mild (Pain Scale 1-3)) 30 Days Qty: 90 0RF polyethylene glycol 3350 17 gram Powder In Packet 17 g PO DAILY PRN (Reason: Constipation) 5 Days Qty: 30 0RF aspirin 81 mg Tablet,Delayed Release (Dr/Ec) 81 mg PO DAILY 30 Days Qty: 30 0RF carvedilol 3.125 mg Tablet 3.125 mg PO BID 30 Days Qty: 60 0RF Protocol: Hold for SBP/HR < HOLD for SBP < : 90 HOLD for HR < : 60 gabapentin 100 mg Capsule 200 mg PO BID 10 Days Qty: 40 0RF Brilinta 90 mg Tablet 90 mg PO BID 30 Days Qty: 60 0RF ondansetron 4 mg tablet,disintegrating 4 mg PO Q8H 3 Days Qty: 9 0RF ipratropium-albuterol 0.5 mg-3 mg(2.5 mg base)/3 mL solution for nebulization 3 ml inhalation TID Qty: 90 0RF prednisone 20 mg tablet 20 mg PO DAILY Qty: 5 0RF azithromycin 250 mg tablet 250 mg PO DAILY 4 Days Qty: 4 0RF Rx Instructions: start on day 2 of therapy doxycycline hyclate 100 mg capsule 100 mg PO BID Qty: 9 0RF prednisone 50 mg tablet 50 mg PO DAILY Qty: 4 0RF doxycycline monohydrate 100 mg tablet 100 mg PO BID 10 Days Qty: 20 0RF cephalexin 500 mg capsule 500 mg PO Q6H 10 Days Qty: 40 0RF oxycodone 5 mg tablet 5 mg PO Q6H PRN (Reason: pain) Qty: 7 0RF Rx Instructions: Partial Fill upon patient request. furosemide 40 mg tablet 40 mg PO BID Qty: 60 2RF sulfamethoxazole-trimethoprim [Bactrim DS] 800-160 mg tablet 1 tab PO BID Qty: 20 0RF morphine 15 mg tablet 15 mg PO BID PRN (Reason: pain) Qty: 20 0RF Rx Instructions: Partial Fill upon patient request.
[2022-11-18 23:34] VITALS: BP 129/90; PULSE 107; RESP 20; TEMP 36.9; O2SAT 100
--- NOTE | 2022-11-18 23:35 | PC.NURSE ---
Per MD Vela, dressed leg with 4x4 bandages and wrap. No drainage noted, secured with tape.
== END 2022-11-18 23:47 | disposition home or self-care (01) ==
PROVIDERS: Emergency Provider Emergency Medicine; PCP Nurse Practitioner Family
DX: T81.30XA Disruption of wound, unspecified, initial encounter (principal); Y82.9 Unspecified medical devices associated with adverse incidents; Y92.9 Unspecified place or not applicable
CPT/HCPCS: 99282; 99284

== ENCOUNTER → 2022-11-22 14:19 | Outpatient (BNVA) | payer OTHER, SELFPAY | PROVIDERS: PCP Nurse Practitioner Family; Visit Provider Surgery | DX: T87.89 Other complications of amputation stump (principal); S81.802A Unspecified open wound, left lower leg, initial encounter | CPT/HCPCS: 99212 ==

== ENCOUNTER 2022-11-24 08:30 | Emergency (ER) | payer OTHER, SELFPAY ==
--- NOTE | ~2022-11-24 | XR_ITS ---
EXAMINATION: XR CHEST CLINICAL INFORMATION: Acute dyspnea COMPARISON: 10/27/2022 TECHNIQUE: Frontal view of the chest was obtained. FINDINGS: The lungs are well expanded. There is no focal consolidation or edema. Blunting at the left costophrenic angle suggests small left pleural effusion. No pneumothorax. The cardiomediastinal silhouette is within normal limits. No acute osseous abnormality. XR/XR chest 1V IMPRESSION: Small left pleural effusion. No dense consolidation.
[2022-11-24 08:36] VITALS: BP 128/74; PULSE 110; PULSE 115; RESP 14; TEMP 36.4; O2SAT 100; BMI 29.8
--- NOTE | 2022-11-24 08:40 | ECG_ITS ---
Test Reason : sob Blood Pressure : / mmHG Vent. Rate : 111 BPM Atrial Rate : 111 BPM P-R Int : 150 ms QRS Dur : 076 ms QT Int : 348 ms P-R-T Axes : 073 070 086 degrees QTc Int : 473 ms Poor data quality Sinus tachycardia Low voltage QRS Possible Anterolateral infarct (cited on or before 13-JUN-2022) Abnormal ECG When compared with ECG of 03-NOV-2022 20:57, Poor data quality in current ECG precludes serial comparison Referred By: Gio Plaza Electronically Signed By:LUANN SALAZAR MD
[2022-11-24 08:54] VITALS: PULSE 109; RESP 20; O2SAT 100
[2022-11-24 09:06] LABS: MANUAL DIFF FLAG NO
[2022-11-24 09:13] LABS: Basophils Absolute Auto 0.1 X10*3/uL (0.0-0.2); Basophils Percent Auto 0.8 % (0-2); Eosinophils Absolute Auto 0.1 X10*3/uL (0.0-0.4); Eosinophils Percent Auto 0.9 % (0-4); Hematocrit 34.9 % (37.0-47.0); Hemoglobin 9.8 g/dl (12.0-16.0); Imm Gran Abs Auto 0.03 X10*3/uL (0.00-0.03); Imm Gran Pct Auto 0.5 % (0.0-0.4); Lymphocytes Absolute Auto 1.4 X10*3/uL (1.2-4.9); Lymphocytes Percent Auto 21.1 % (20-40); Mean Corpuscular HGB Conc 28.1 g/dl (31.0-35.0); Mean Corpuscular Hemoglobin 19.2 pg (27.0-33.0); Mean Corpuscular Volume 68.4 fL (80.0-98.0); Monocytes Absolute Auto 0.5 X10*3/uL (0.1-1.2); Monocytes Percent Auto 7.6 % (2-11); NRBC Pct Auto 0.9 /100WBC (0.0-0.2); Neutrophils Absolute Auto 4.6 x10*3/uL (2.0-8.3); Neutrophils Percent Auto 69.1 % (45-73); Platelet Count 182 X10*3/uL (160-400); Red Cell Distribution Width 21.8 % (11.0-16.0); White Blood Count 6.6 X10*3/uL (4.8-10.8)
[2022-11-24 09:15] LABS: INTERNATIONAL NORM RATIO 1.7 (0.9-1.1); Prothrombin Time 19.4 SEC (10.0-13.1)
[2022-11-24 09:18] LABS: Partial Thromboplastin Time 25.4 SEC (26.0-36.4)
--- NOTE | 2022-11-24 09:22 | PHA.MEDREC ---
Addendum entered by Laverne Alston, [facility] 11/24/22 09:39: When looking at recent claims, it showed the [facility] has ordered Plavix 75 mg and to stop brilinta. Brought the situation to current provider as this conflicts with what patient stated. Provider stated to include plavix and dc brilinta as this is the most recent. Original Note: Pharmacy Consult ? Medication Reconciliation Pharmacy has completed the medication reconciliation. Spoke to patient, she was able to tell me that she is not taking elquis as there was a recent claim and she is on brilinta. Other than that the patient stated nothing has changed since last admission
[2022-11-24 09:26] LABS: Alanine Aminotransferase 13 U/L (0-31); Albumin Level 3.6 g/dL (3.5-5.0); Alkaline Phosphatase 101 U/L (39-117); Anion Gap 15 (12-20); Aspartate Amino Transferase 27 U/L (5-31); Bilirubin Total 2.5 mg/dL (0.0-1.0); Blood Urea Nitrogen 17 mg/dL (9-16); Calcium 9.2 mg/dL (8.4-10.2); Carbon Dioxide 23 mmol/L (22-29); Chloride 103 mmol/L (96-108); Estimated Glomerular Filt Rate 58; Glucose Random 147 mg/dL (60-115); Potassium 4.8 mmol/L (3.3-5.1); Sodium 136 mmol/L (135-145); Total Protein 6.8 g/dL (6.5-8.0)
[2022-11-24 09:27] LABS: Troponin-I High Sensitivity 16.3 ng/L (<3.5-17.0)
[2022-11-24 09:30] LABS: COVID-19 Test Negative (Negative); IDNOW Serial# BCCEAD1C
[2022-11-24 09:34] VITALS: O2SAT 100
[2022-11-24 10:03] LABS: B Type Natriuretic Peptide 2595 pg/mL (<100)
[2022-11-24 11:02] LABS: Reflex Lactate? Lactic Acid Added
== END 2022-11-24 11:08 | disposition left against medical advice (07) ==
LOC: HO.ED 09:10
PROVIDERS: Emergency Provider Emergency Medicine
DX: R06.02 Shortness of breath (principal); R00.0 Tachycardia, unspecified; Z20.822 Contact with and (suspected) exposure to COVID-19; Z20.828 Contact with and (suspected) exposure to other viral communicable diseases; Z79.899 Other long term (current) drug therapy
CPT/HCPCS: 36415; 71045; 80053; 83605; 83880; 84484; 85025; 85610; 85730; 87040; 87635; 93005; 94640; 99284; 99285

== ENCOUNTER 2022-11-24 21:09 | Emergency (ER) | payer OTHER, SELFPAY ==
--- NOTE | ~2022-11-24 | XR_ITS ---
EXAMINATION: XR CHEST CLINICAL INFORMATION: Dyspnea. COMPARISON: Chest radiograph earlier today at 8:59 AM. TECHNIQUE: Frontal view of the chest was obtained. FINDINGS: Stable appearance of the cardiomediastinal silhouette. Redemonstration of coronary artery calcifications versus stents. Stable small left-sided pleural effusion. No new focal airspace opacity. No pneumothorax. Bony thorax is intact. XR/XR chest 1V IMPRESSION: 1. Stable small left pleural effusion. 2. No new focal airspace opacity.
[2022-11-24 21:10] VITALS: BP 129/93; PULSE 114; RESP 18; TEMP 36.1; O2SAT 100; BMI 28.9
[2022-11-24 21:55] VITALS: BP 130/83; PULSE 114; RESP 18; TEMP 36.5; O2SAT 100
--- NOTE | 2022-11-24 22:04 | ECG_ITS ---
Test Reason : CHEST PAIN / SOB Blood Pressure : / mmHG Vent. Rate : 109 BPM Atrial Rate : 109 BPM P-R Int : 150 ms QRS Dur : 078 ms QT Int : 344 ms P-R-T Axes : 068 060 113 degrees QTc Int : 463 ms Sinus tachycardia with occasional Premature ventricular complexes Low voltage QRS Cannot rule out Anterior infarct (cited on or before 13-JUN-2022) Abnormal ECG When compared with ECG of 24-NOV-2022 08:47, Premature ventricular complexes are now Present Referred By: Generic ED Physician Electronically Signed By:LUANN SALAZAR MD
[2022-11-24 22:17] LABS: MANUAL DIFF FLAG NO
[2022-11-24 22:18] LABS: Eosinophils Absolute Auto 0.1 X10*3/uL (0.0-0.4); Eosinophils Percent Auto 0.9 % (0-4); Hemoglobin 10.2 g/dl (12.0-16.0); Mean Corpuscular HGB Conc 28.3 g/dl (31.0-35.0); Neutrophils Percent Auto 68.5 % (45-73); SCAN SMEAR FLAG 1
[2022-11-24 22:20] VITALS: BP 123/66; PULSE 108; RESP 19; TEMP 36.8; O2SAT 100
[2022-11-24 22:20] LABS: Basophils Absolute Auto 0.1 X10*3/uL (0.0-0.2); Basophils Percent Auto 1.1 % (0-2); Imm Gran Abs Auto 0.02 X10*3/uL (0.00-0.03); Imm Gran Pct Auto 0.3 % (0.0-0.4); Lymphocytes Absolute Auto 1.6 X10*3/uL (1.2-4.9); Lymphocytes Percent Auto 21.3 % (20-40); Mean Corpuscular Hemoglobin 19.3 pg (27.0-33.0); Mean Corpuscular Volume 68.2 fL (80.0-98.0); Monocytes Absolute Auto 0.6 X10*3/uL (0.1-1.2); Monocytes Percent Auto 7.9 % (2-11); Neutrophils Absolute Auto 5.1 x10*3/uL (2.0-8.3); PLT CLUMP 1; Red Blood Count 5.28 X10*6/uL (4.20-5.50); Red Cell Distribution Width 21.7 % (11.0-16.0)
--- NOTE | 2022-11-24 22:25 | PC.NURSE ---
Pt aox4 tearful at the bedside. Sinus tach on monitor with hr 108. Breaths are even regular and unlabored. Clear lung sounds in all lobes. O2 sat 100%, RR 22. Abd soft and non tender. Skin is warm pink and dry. BKA on left lower extremity. Red warm area with purulent drainage at the incision site. New dressing applied. Foot ulcer noted on the right foot with purulent drainage. Dressing applied. Pt reports pain, 10/10. Tearful at the bedside. IV line started on the right AC. Pt tolerated well. Pending lab results and physician pedro.
[2022-11-24 22:32] LABS: Anion Gap 19 (12-20); Blood Urea Nitrogen 22 mg/dL (9-16); Calcium 9.8 mg/dL (8.4-10.2); Carbon Dioxide 21 mmol/L (22-29); Chloride 101 mmol/L (96-108); Creatinine Clr Calc Pharmacy 48.9; Estimated Glomerular Filt Rate 43; Glucose Random 184 mg/dL (60-115); Potassium 5.2 mmol/L (3.3-5.1); Sodium 136 mmol/L (135-145)
[2022-11-24 22:38] LABS: NRBC Pct Auto 1.2 /100WBC (0.0-0.2); PLT ABN DIST 1; Platelet Count 213 X10*3/uL (160-400); White Blood Count 7.5 X10*3/uL (4.8-10.8)
--- NOTE | 2022-11-24 23:09 | ED_ITS ---
HPI - General Adult General Chief complaint: Dyspnea Stated complaint: Sob,asthma Time Seen by Provider: 11/24/22 22:36 Source: patient Mode of arrival: ambulatory Limitations: no limitations History of Present Illness HPI narrative: Patient is status post left BKA been here multiple times for the pain with multiple other complaints also chronic shortness of breath saturating 99% at room complaining of pain in the stump area was given oxycodone 3 days ago but she says her daughter took the pills patient is anxious crying asking for pain medicine. Patient has seen her surgeon yesterday Related Data Home Medications Medication Instructions Recorded Confirmed clopidogrel 75 mg tablet 75 mg PO DAILY 11/24/22 11/24/22 glipizide 5 mg-metformin 500 mg 2 tab PO BID 11/24/22 11/24/22 tablet Previous Rx's Medication Instructions Recorded acetaminophen 325 mg tablet 650 mg PO Q8H PRN Pain, Mild (Pain 09/21/22 Scale 1-3) 30 days #90 tabs atorvastatin 80 mg tablet 80 mg PO BEDTIME 30 days #30 tabs 09/21/22 carvedilol 3.125 mg tablet 3.125 mg PO BID 30 days #60 tabs 09/21/22 polyethylene glycol 3350 17 gram 17 g PO DAILY PRN Constipation 5 09/21/22 oral powder packet days #30 ea albuterol sulfate 2.5 mg/3 mL 1 vial inhalation Q6H PRN Wheezing 09/29/22 (0.083 %) solution for nebulization #90 mL albuterol sulfate 90 mcg/actuation 1 puff inhalation Q4H PRN Wheezing 09/29/22 aerosol inhaler (Ventolin HFA) #1 g gabapentin 300 mg capsule 2 cap PO BID #120 caps 09/29/22 lisinopril 20 mg tablet 20 mg PO DAILY #30 tabs 09/29/22 montelukast 10 mg tablet 1 tab PO BEDTIME #30 tabs 09/29/22 umeclidinium 62.5 mcg/actuation 1 puff PO DAILY #1 ea 09/29/22 blister powder for inhalation (Incruse Ellipta) ipratropium 0.5 mg-albuterol 3 mg 3 ml inhalation TID #90 mL 10/14/22 (2.5 mg base)/3 mL nebulization soln oxycodone 5 mg tablet 5 mg PO Q6H PRN pain #7 tabs 10/21/22 furosemide 40 mg tablet 40 mg PO BID #60 tabs 10/27/22 silver-hydrocolloid dressing 1.2 1 ea topical Q OTHER DAY 1 month 11/22/22 %-3.5 X 4 (Aquacel-AG) #10 ea morphine 15 mg tablet,extended 15 mg PO Q12H pain #20 tabs 11/24/22 release Allergies Allergy/AdvReac Type Severity Reaction Status Date / Time Penicillins [PENICILLINS] Allergy Severe RASH Verified 11/22/22 14:46 amoxicillin [AMOXICILLIN] Allergy Intermediate HIVES Verified 11/22/22 14:46 perflutren [From Definity] AdvReac Back Pain Verified 11/22/22 14:46 Review of Systems Review of Systems: Yes all other systems are reviewed and are negative [facility] Past Medical History Medical History Asthma Atherosclerotic cardiovascular disease Atrial tachycardia Below-knee amputation of left lower extremity Cellulitis in diabetic foot COPD (chronic obstructive pulmonary disease) Coronary artery disease COVID-19 vaccine series completed Diabetes Diabetic foot infection Diabetic foot infection Diabetic foot ulcer Diabetic toe ulcer Essential hypertension GERD (gastroesophageal reflux disease) Hyperglycemia due to diabetes mellitus Hypertension Ischemic cardiomyopathy Left against medical advice Left against medical advice Osteomyelitis Osteomyelitis 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 PAD (peripheral artery disease) Surgical History History of esophagogastroduodenoscopy (EGD) History of toe surgery (09/22/21) Status post below-knee amputation of left lower extremity (09/20/22) Family History Family History Mother Hx of CABG Sister CAD (coronary artery disease) Social History Social History Household Members: Family and Children Housing: Apartment Do you presently have visiting nurse or other home services: No Unable to assess alcohol history related to: Refusing to respond Alcohol intake: never Patient Tobacco Use Status: Current everyday Tobacco user Tobacco use type: Cigarette Cigarette Packs Per Day: 0.5 Cigarettes Per Day: 6 Years Smoked: 43 Smoked in Last 30 Days: Yes e-Cigarette/Vaping Use: Currently Using Second Hand Smoke Exposure: Yes Use of substances other than those prescribed or required for medical reasons: No Substance Use Type: Marijuana Advance Directives: Yes Advance Directives on File: Yes Advance Directives Date on File: 09/22/22 Patient : No service: No Current occupational status: disabled Physical Exam ED Vital Signs: Vital Signs - 24 hr 11/24/22 21:10 11/24/22 21:55 11/24/22 22:20 Temperature 97 F 97.7 F 98.3 F Pulse Rate 114 H 114 H 108 H Respiratory Rate 18 18 19 Blood Pressure 129/93 H 130/83 123/66 Pulse Oximetry 100 100 100 Oxygen Delivery Method Room Air Room Air Room Air BMI result Body Mass Index 28.9 Appearance: Alert. Oriented X3. In mild distress Eyes: PERRLA, No Nystagmus ENT: Pharynx normal. Oral Mucosa moist Neck: Normal inspection. Neck supple. CVS: Normal heart rate and rhythm. Pulses normal. Respiratory: No respiratory distress. Equal air entry bilateral, no wheezing/rales/rhonchi prolonged expiration Abdomen: Soft and nontender. Bowel sounds are present, Skin: Skin warm and dry. Normal skin color. Extremities: No lower extremity edema. No calf tenderness left BKA stump looks healthy without any significant discharge Neuro: Oriented X 3. No motor deficit. Medications Administered Discontinued Medications Generic Name Dose Route Start Last Admin Trade Name Freq PRN Reason Stop Dose Admin Oxycodone HCl 10 mg 11/24/22 23:07 11/24/22 23:14 Oxycodone Hcl Immed Release 5 Mg Tablet PO 11/24/22 23:08 10 mg ONCE ONE Administration Medical Decision Making Medical Decision Making [facility] Narrative: Patient with chronic pain in left BKA stump without any signs of infection labs are stable discharge patient home on morphine tablets Lab Data [facility] Lab Attestation statement: I reviewed the patient's lab results. 11/24/22 22:12 11/24/22 22:13 Labs: Lab Results 11/24/22 11/24/22 Range/Units 22:12 22:13 WBC 7.5 (4.8-10.8) X10*3/uL RBC 5.28 (4.20-5.50) X10*6/uL Hgb 10.2 L (12.0-16.0) g/dl Hct 36.0 L (37.0-47.0) % MCV 68.2 L (80.0-98.0) fL MCH 19.3 L (27.0-33.0) pg MCHC 28.3 L (31.0-35.0) g/dl RDW 21.7 H (11.0-16.0) % Plt Count 213 (160-400) X10*3/uL MPV TNP Immature Gran % (Auto) 0.3 (0.0-0.4) % Neut % (Auto) 68.5 (45-73) % Lymph % (Auto) 21.3 (20-40) % [place] % (Auto) 7.9 (2-11) % Eos % (Auto) 0.9 (0-4) % Baso % (Auto) 1.1 (0-2) % Lymph # (Auto) 1.6 (1.2-4.9) X10*3/uL [place] # (Auto) 0.6 (0.1-1.2) X10*3/uL Eos # (Auto) 0.1 (0.0-0.4) X10*3/uL Baso # (Auto) 0.1 (0.0-0.2) X10*3/uL Abs Immat Gran (auto) 0.02 (0.00-0.03) X10*3/uL Absolute Neuts (auto) 5.1 (2.0-8.3) x10*3/uL Absolute Nucleated RBC 0.090 H (0.0-0.012) X10*3/uL Nucleated RBC % (auto) 1.2 H (0.0-0.2) /100WBC Sodium 136 (135-145) mmol/L Potassium 5.2 H (3.3-5.1) mmol/L Chloride 101 (96-108) mmol/L Carbon Dioxide 21 L (22-29) mmol/L Anion Gap 19 (12-20) BUN 22 H (9-16) mg/dL Creatinine 1.31 (0.5-1.4) mg/dL Estim Creat Clear Calc 48.9 Estimated GFR 43 Random Glucose 184 H (60-115) mg/dL Calcium 9.8 D (8.4-10.2) mg/dL Discharge Plan Discharge Clinical Impression: Phantom limb pain, COPD (chronic obstructive pulmonary disease) Patient Disposition: Home, Self-Care Instructions: Chronic Pain (ED), COPD (Chronic Obstructive Pulmonary Disease) (DC) Additional Instructions: Take pain medication as prescribed Follow-up with PCP/pain clinic Care of the stump as advised , keep it dry and clean Prescriptions: New morphine 15 mg tablet extended release 15 mg PO Q12H Qty: 20 0RF Rx Instructions: Partial Fill upon patient request. No Action albuterol sulfate 2.5 mg /3 mL (0.083 %) solution for nebulization 1 vial inhalation Q6H PRN (Reason: Wheezing) Qty: 90 0RF lisinopril 20 mg tablet 20 mg PO DAILY Qty: 30 0RF gabapentin 300 mg capsule 2 cap PO BID Qty: 120 0RF montelukast 10 mg tablet 1 tab PO BEDTIME Qty: 30 0RF albuterol sulfate [Ventolin HFA] 90 mcg/actuation HFA aerosol inhaler 1 puff INHALATION Q4H PRN (Reason: Wheezing) Qty: 1 0RF Incruse Ellipta 62.5 mcg/actuation blister with device 1 puff PO DAILY Qty: 1 0RF atorvastatin 80 mg Tablet 80 mg PO BEDTIME 30 Days Qty: 30 0RF acetaminophen 325 mg Tablet 650 mg PO Q8H PRN (Reason: Pain, Mild (Pain Scale 1-3)) 30 Days Qty: 90 0RF polyethylene glycol 3350 17 gram Powder In Packet 17 g PO DAILY PRN (Reason: Constipation) 5 Days Qty: 30 0RF carvedilol 3.125 mg Tablet 3.125 mg PO BID 30 Days Qty: 60 0RF Protocol: Hold for SBP/HR < HOLD for SBP < : 90 HOLD for HR < : 60 ipratropium-albuterol 0.5 mg-3 mg(2.5 mg base)/3 mL solution for nebulization 3 ml inhalation TID Qty: 90 0RF oxycodone 5 mg tablet 5 mg PO Q6H PRN (Reason: pain) Qty: 7 0RF Rx Instructions: Partial Fill upon patient request. furosemide 40 mg tablet 40 mg PO BID Qty: 60 2RF glipizide-metformin 5-500 mg tablet 2 tab PO BID clopidogrel 75 mg tablet 75 mg PO DAILY Aquacel-AG 1.2-3.5 X 4 %- bandage 1 ea topical Q OTHER DAY 30 Days Qty: 10 0RF Rx Instructions: cut portion of bandage to cover open wound, apply every other day. Cover with 4x4 gauze, 4 inch ann, and 4 inch AIDAN. Referrals: James Gorman MD [Physician] - 1 week
[2022-11-24] MEDS: oxyCODONE HCl Immed Release 5 MG TABLET 10 MG PO (23:14)
== END 2022-11-24 23:32 | disposition home or self-care (01) ==
PROVIDERS: Emergency Provider Internal Medicine
DX: J44.9 Chronic obstructive pulmonary disease, unspecified (principal); R07.89 Other chest pain; R06.02 Shortness of breath; G54.6 Phantom limb syndrome with pain; G89.29 Other chronic pain; F17.210 Nicotine dependence, cigarettes, uncomplicated; Z71.6 Tobacco abuse counseling
CPT/HCPCS: 36415; 71045; 80048; 85025; 93005; 99283; 99285

== ENCOUNTER 2022-11-25 17:08 | Inpatient (IN) | payer OTHER, SELFPAY ==
--- NOTE | ~2022-11-25 | US_ITS ---
EXAMINATION: US ABDOMEN COMPLETE CLINICAL INFORMATION: Abdominal pain. COMPARISON: CT abdomen/pelvis 10/15/2022. TECHNIQUE: Real-time imaging of the abdominal viscera. FINDINGS: Limited examination secondary to body habitus, shadowing from overlying bowel gas and motion. PANCREAS: Visualized proximal pancreas is within normal limits. The tail is obscured by overlying bowel gas. ABDOMINAL AORTA: The proximal, mid, and distal segments are normal in caliber. INFERIOR VENA CAVA: Visualized portions are normal. LIVER: Enlarged measuring 18 cm in length. Otherwise, normal in shape and attenuation. No discrete focal lesion. No biliary ductal dilatation. Trace perihepatic ascites. GALLBLADDER: Gallbladder wall thickening measuring 0.5 cm. No discrete calculi. No significant pericholecystic free fluid. COMMON BILE DUCT: Normal in caliber measuring 0.4 cm in diameter. RIGHT KIDNEY: Normal. No hydronephrosis. No renal calculi or focal parenchymal lesions. The kidney measures 10.5 cm in maximum dimension. LEFT KIDNEY: Normal. No hydronephrosis. No renal calculi or focal parenchymal lesions. The kidney measures 10 cm in maximum dimension. SPLEEN: Mild splenomegaly measuring 15 cm in length. FREE FLUID: Trace perihepatic ascites. Partially imaged left-sided pleural effusion. US/US abdomen complete IMPRESSION: Limited examination secondary to body habitus, shadowing from overlying bowel gas and motion. 1. Nonspecific gallbladder wall thickening. This could be seen in the setting of third spacing of fluids in the setting of hepatocellular disease and volume overload. 2. Hepatosplenomegaly. 3. Trace perihepatic ascites. 4. Partially imaged left-sided pleural effusion.
--- NOTE | ~2022-11-25 | MR_ITS ---
EXAMINATION: MR ABDOMEN WITHOUT CONTRAST CLINICAL INFORMATION: Elevated LFTs, question CBD obstruction on HIDA scan COMPARISON: CT of abdomen pelvis 12/24/2020 and 11/26/2022 TECHNIQUE: MRI of the abdomen without contrast was obtained using routine sequences. Heavily T2 weighted MRCP sequences were also obtained. FINDINGS: LUNG BASES: Right greater than left bibasilar airspace opacities suboptimally evaluated on this MR abdomen. Small bilateral pleural effusions. KIDNEYS AND URETERS: Unremarkable. GALLBLADDER: Stones and sludge within the gallbladder. There is small volume of pericholecystic free fluid however a background of small volume ascites. Gallbladder is not significantly distended. LIVER AND BILIARY TREE: Liver is enlarged measuring 18.1 cm in span. No intra or extrahepatic biliary duct dilatation. MRCP sequences are significantly motion degraded however there is no appreciable intraluminal filling defect appreciated in the standard T2-weighted sequences. PANCREAS: Unremarkable SPLEEN: Enlarged measuring 15.2 cm in span. ADRENAL GLANDS: A 1.2 cm left adrenal nodule without definite appreciable loss of signal on opposed phase imaging however not increased in size from 2020 previously 1.4 cm, probably benign. No further follow up imaging recommended. GASTROINTESTINAL TRACT: Unremarkable. LYMPH NODES: No lymphadenopathy. VASCULAR: Unremarkable ABDOMINAL WALL: Anasarca. OSSEOUS STRUCTURES: Unremarkable. MR/MR MRCP IMPRESSION: 1. No intra or extrahepatic biliary duct dilatation. MRCP sequences are significantly motion degraded however there is no appreciable intraluminal filling defect appreciated in the standard T2-weighted sequences to favor choledocholithiasis. 2. Stones and sludge within the gallbladder. There is small volume of pericholecystic free fluid however given a background of small volume ascites this finding is nonspecific. Gallbladder is not significantly distended to favor acute cholecystitis, however recommend correlation with clinical symptoms. 3. Hepatosplenomegaly. 4. Right greater than left bibasilar airspace opacities suboptimally evaluated on this MR abdomen consider correlation with chest radiograph. Small bilateral pleural effusions. 5. Anasarca.
--- NOTE | ~2022-11-25 | NM_ITS ---
Examination: Nuclear medicine hepatobiliary scan. Clinical indications: Right upper quadrant pain. Elevated LFTs. COMPARISON: CT abdomen and pelvis 11/26/2022. TECHNIQUE: Following intravenous administration of 5 mCi of technetium 99m mebrofenin, imaging over the right upper quadrant was obtained up to 60 minutes. At 60 minutes 1.5 mL of CCK was administered at 70 minutes and imaging was obtained up to 30 minutes. FINDINGS: There is normal hepatic uptake without focal defect. The gallbladder is visualized by 60 minutes. Post-CCK and 70 minutes there is no gallbladder contraction with a gallbladder ejection fraction of 0% at 30 minutes. No isotope activity seen in the small bowel either. NM/NM hepatobiliary w pharm IMPRESSION: Nonvisualization of small bowel up to 100 minutes. This could be secondary to acute CBD obstruction. There is no gallbladder contraction or emptying at 30 minutes.. This could be secondary to cystic duct or common bile duct obstruction. Recommend correlation with ERCP. There is no CBD dilation on CT 11/26/2022 Normal liver uptake with no focal defect
--- NOTE | ~2022-11-25 | CT_ITS ---
EXAMINATION: CT ABDOMEN AND PELVIS WITH CONTRAST CLINICAL INFORMATION: Abdominal pain. COMPARISON: Abdominal ultrasound 11/25/2022. CT abdomen/pelvis 10/15/2022. TECHNIQUE: Multidetector volumetric images were obtained from the superior aspect of the liver through the pubic symphysis following administration 85 mL of Omnipaque 350 intravenous contrast. Sagittal and coronal reformatted images were obtained on the technologist's workstation. Oral contrast: No This CT examination was performed using dose optimization techniques as appropriate, variously including the following: *Automated exposure control *Adjustment of mA and/or kV according to patient size (this includes techniques or standardized protocols for targeted exams where dose is matched to indication/reason for exam; i.e. extremities or head) *Use of iterative reconstruction technique DLP: 579 mGy-cm FINDINGS: LUNG BASES: Small to moderate bilateral pleural effusions. LIVER, GALLBLADDER, AND BILIARY TREE: The liver is enlarged measuring 18.8 cm in craniocaudal dimension and demonstrates diffuse heterogeneous attenuation. No discrete focal liver lesions, although evaluation is limited due to heterogeneity of the background. Mild diffuse gallbladder wall thickening and wall edema. Punctate hyper attenuating focus in the fundus (3:37) could represent a tiny calculus. Subtle layering hyperdense debris, likely sludge. No significant pericholecystic fat stranding or free fluid. PANCREAS: Subtle nonspecific fatty haziness centered around the celiac axis and root of the mesentery, close in proximity with the proximal pancreas, not significantly changed compared to 10/15/2022. No significant peripancreatic fat stranding. The main duct is nondilated. SPLEEN: The spleen is enlarged measuring 16.4 cm craniocaudally. ADRENAL GLANDS: Nonspecific asymmetry enlargement of the left adrenal gland with mild diffuse hazy attenuation, stable compared to 10/15/2022. KIDNEYS AND URETERS: Bilateral vascular calcifications limiting assessment of the small calculi. Multifocal subtle cortical scarring. No hydronephrosis. Symmetric nephrograms. No significant perinephric fat stranding. BLADDER: Unremarkable. GASTROINTESTINAL TRACT: Hyperemia of the gastric rugae, as well as hyperemia of the antropyloric region and proximal duodenum. Questionable wall thickening and submucosal edema of the stomach antrum, suboptimally assessed due to underdistention (3:31). The small bowel is nondilated. Normal appendix. No pericolonic inflammatory changes or evidence of bowel obstruction. Small volume of ascites. ABDOMINAL WALL: Anasarca. LYMPH NODES: No lymphadenopathy by CT short axis size criteria. VASCULAR: Extensive atherosclerotic disease. Abdominal aorta is normal in caliber. PELVIC VISCERA: Small volume of free fluid. OSSEOUS STRUCTURES: No acute or aggressive appearing osseous abnormalities. CT/CT abdomen pelvis w IV con IMPRESSION: Hepatosplenomegaly. Abnormal heterogeneously attenuation of the liver, nonspecific could be seen with acute hepatitis or other forms of hepatocellular disease. Recommend correlation with liver function tests. Very subtle equivocal punctate gallbladder calculus with minimal layering hyperdense bile/sludge. Diffuse gallbladder wall thickening with edema is nonspecific in the setting of volume overload and hepatocellular disease. No significant pericholecystic fat stranding or free fluid. Bilateral pleural effusions, anasarca and small volume of ascites suggesting third spacing. Nonspecific fatty haziness centered around the celiac axis/root of the mesentery and around the left adrenal gland, stable compared to 10/15/2022. Hyperemia of the gastric wall and proximal duodenum, correlate clinically for peptic ulcer disease, gastritis and duodenitis.
--- NOTE | 2022-11-25 17:23 | ED.SKABFB ---
HPI - Skin/Abscess/Foreign Bdy General Chief complaint: Nausea/Vomiting/Diarrhea Stated complaint: Medication reaction Time Seen by Provider: 11/25/22 18:18 Source: patient and RN notes reviewed Mode of arrival: ambulatory Limitations: no limitations History of Present Illness HPI narrative: This is a 52-year-old female, with a history of type 2 diabetes, left BKA, CHF, COPD, and NSTEMI, presenting to emergency department for evaluation of tiredness, epigastric and right upper quadrant pain, and nausea after receiving too much oxycodone yesterday. Patient reports that she typically takes 1 tablet of oxycodone but was given 10 mg yesterday. She states that since receiving this she has been unable to eat, has been very sleepy and nauseous all day. Patient denies any fevers, chills, chest pain, shortness of breath, or diarrhea. Her last bowel movement was this morning it was normal. She has been unable to eat today due to nausea and abdominal pain. No other complaints or concerns today. Onset (ago): day(s) Relieving factors: none Exacerbating factors: none Context: none Treatments prior to arrival: none Related Data Home Medications Medication Instructions Recorded Confirmed clopidogrel 75 mg tablet 75 mg PO DAILY 11/24/22 11/24/22 glipizide 5 mg-metformin 500 mg 2 tab PO BID 11/24/22 11/24/22 tablet Previous Rx's Medication Instructions Recorded acetaminophen 325 mg tablet 650 mg PO Q8H PRN Pain, Mild (Pain 09/21/22 Scale 1-3) 30 days #90 tabs atorvastatin 80 mg tablet 80 mg PO BEDTIME 30 days #30 tabs 09/21/22 carvedilol 3.125 mg tablet 3.125 mg PO BID 30 days #60 tabs 09/21/22 polyethylene glycol 3350 17 gram 17 g PO DAILY PRN Constipation 5 09/21/22 oral powder packet days #30 ea albuterol sulfate 2.5 mg/3 mL 1 vial inhalation Q6H PRN Wheezing 09/29/22 (0.083 %) solution for nebulization #90 mL albuterol sulfate 90 mcg/actuation 1 puff inhalation Q4H PRN Wheezing 09/29/22 aerosol inhaler (Ventolin HFA) #1 g gabapentin 300 mg capsule 2 cap PO BID #120 caps 09/29/22 lisinopril 20 mg tablet 20 mg PO DAILY #30 tabs 09/29/22 montelukast 10 mg tablet 1 tab PO BEDTIME #30 tabs 09/29/22 umeclidinium 62.5 mcg/actuation 1 puff PO DAILY #1 ea 09/29/22 blister powder for inhalation (Incruse Ellipta) ipratropium 0.5 mg-albuterol 3 mg 3 ml inhalation TID #90 mL 10/14/22 (2.5 mg base)/3 mL nebulization soln oxycodone 5 mg tablet 5 mg PO Q6H PRN pain #7 tabs 10/21/22 furosemide 40 mg tablet 40 mg PO BID #60 tabs 10/27/22 silver-hydrocolloid dressing 1.2 1 ea topical Q OTHER DAY 1 month 11/22/22 %-3.5 X 4 (Aquacel-AG) #10 ea morphine 15 mg tablet,extended 15 mg PO Q12H pain #20 tabs 11/24/22 release Allergies Allergy/AdvReac Type Severity Reaction Status Date / Time Penicillins [PENICILLINS] Allergy Severe RASH Verified 11/22/22 14:46 amoxicillin [AMOXICILLIN] Allergy Intermediate HIVES Verified 11/22/22 14:46 perflutren [From Definity] AdvReac Back Pain Verified 11/22/22 14:46 Review of Systems Review of Systems: Constitutional: No Weight loss, No Fever, No Chills, No Night Sweats, No Fatigue, No Malaise ENT/Mouth: No Hearing loss, No Ear Pain, No Nasal Congestion, No Sinus Pain, No Hoarseness, No sore throat, No Rhinorrhea, No Swallowing Difficulty Eyes: No Eye Pain, No Swelling, No Redness, No Foreign Body, No Discharge, No Vision Changes Cardiovascular: No Chest Pain, No SOB, No Dyspnea on Exertion, No Orthopnea, No Edema, No Palpitations Respiratory: No Cough, No Sputum, No Wheezing, No Smoke Exposure, No Dyspnea Gastrointestinal: + Nausea, + Vomiting, No Diarrhea, No Constipation, + Abdominal pain, No Hematochezia, No Melena Genitourinary: No irregular bleeding, No Dysuria, No Urinary Frequency, No Hematuria, No Urinary Incontinence/retention, No Urgency, No Flank Pain, No Urinary Flow Changes, No Hesitancy Musculoskeletal: No joint pain, No Myalgias, No Joint Swelling Skin: No Skin Lesions, No rash Neuro: No Weakness, No Numbness, No Paresthesias, No Loss of Consciousness, No Dizziness, No Headache Psych: No Anxiety/Panic, No Depression, No SI/HI/AH/VH, No Social Issues, Heme/Lymph: No Bruising, No Bleeding,No Lymphadenopathy Endocrine: No Polyuria, No Polydipsia, No Temperature Intolerance Yes all other systems are reviewed and are negative Constitutional: Constitutional: Reports as per [facility] Past Medical History Medical History Asthma Atherosclerotic cardiovascular disease Atrial tachycardia Below-knee amputation of left lower extremity Cellulitis in diabetic foot COPD (chronic obstructive pulmonary disease) Coronary artery disease COVID-19 vaccine series completed Diabetes Diabetic foot infection Diabetic foot infection Diabetic foot ulcer Diabetic toe ulcer Essential hypertension GERD (gastroesophageal reflux disease) Hyperglycemia due to diabetes mellitus Hypertension Ischemic cardiomyopathy Left against medical advice Left against medical advice Osteomyelitis Osteomyelitis 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 PAD (peripheral artery disease) Surgical History History of esophagogastroduodenoscopy (EGD) History of toe surgery (09/22/21) Status post below-knee amputation of left lower extremity (09/20/22) Family History Family History Mother Hx of CABG Sister CAD (coronary artery disease) Social History Social History Household Members: Family and Children Housing: Apartment Do you presently have visiting nurse or other home services: No Unable to assess alcohol history related to: Refusing to respond Alcohol intake: never Patient Tobacco Use Status: Current everyday Tobacco user Tobacco use type: Cigarette Cigarette Packs Per Day: 0.5 Cigarettes Per Day: 6 Years Smoked: 43 e-Cigarette/Vaping Use: Currently Using Second Hand Smoke Exposure: Yes Substance Use Type: Marijuana Advance Directives: Yes Advance Directives on File: Yes Advance Directives Date on File: 09/22/22 service: No Current occupational status: disabled Physical Exam Vital Signs: Vital Signs: Last Vital Signs Temp 97.6 F 11/25/22 22:45 Pulse 104 H 11/26/22 00:05 Resp 19 11/26/22 00:05 BP 136/86 11/26/22 00:05 Pulse Ox 100 11/26/22 00:05 O2 Del Method Room Air 11/26/22 00:05 BMI result Body Mass Index 26.6 Const: General: cooperative, comfortable and no acute distress Orientation/consciousness: patient oriented x3 Limitations: no limitations HEENT: Head: Yes normal to inspection, Yes normocephalic and Yes atraumatic Ears: hearing grossly normal bilaterally General nose exam: Normal external nose present Face and sinus: Yes normal facial exam Mouth: Normal oral and palatal mucosa present, oropharynx normal and moist mucous membranes Throat: Yes posterior oropharynx normal Eyes: General: appearance normal, both eyes and all related structures Eyelids: Yes eyelids normal Conjunctivae: conjunctivae normal Sclerae: sclerae normal Pupils: Equal, round and reactive pupils present EOM: EOMs intact bilaterally Neck: Neck: Yes normal visual inspection, Yes full ROM and Yes no lymphadenopathy Lymphatic: no lymphadenopathy noted Chest: Chest palpation & inspection: normal inspection of the chest Resp: Effort & Inspection: normal respiratory effort and able to speak in complete sentences Auscultation: clear to auscultation bilaterally, no crackles, no rales, no rhonchi and no wheezes Cardio: Rate: regular rate Rhythm: regular rhythm Heart sounds: S1 normal heart sound present and S2 normal heart sound present GI: Other: Abdomen is soft, with tenderness palpation in the epigastrium and right upper quadrant. No rebound or guarding. Normoactive bowel sounds present Inspection: Yes normal to inspection Skin: General skin exam: no rashes or lesions noted Trauma: no lacerations or abrasions Wounds: no wounds Neuro: General: patient oriented x3 and moves all extremities Cranial nerves: Yes Equal, round and reactive pupils present Extrem: Other: Left BKA stump mildly erythematous with no surrounding warmth, incision with mild wound dehiscence and yellow/clear serous sanguinous drainage. Tender to palpation. No streaking. Mildly tender to palpation. General: Yes normal to inspection Right upper extremity: normal to inspection Left upper extremity: normal to inspection Right lower extremity: normal to inspection Course Course Course Narrative: This is a rapid medical exam. Deferred additional HPI, ROS, PE to primary provider. ?52 year old assigned female at with a history of type 2 DM, left BKA, CHF, COPD, and NSTEMI presenting to the emergency department today with left stump wound and a chronic right heel wound, has nausea/vomiting (she contributes this to receiving 2 oxycodone during yesterdays ER visit). Will give zofran, check labs VSS Reevaluation(s) Reevaluation #1: Patient found to have profoundly elevated AST ALT liver enzymes, normal lipase, normal alk-phos, within normal limits. Lactic acid elevated at 3, history of chronic elevation of this. Ultrasound revealing nonspecific gallbladder wall thickening, could be seen in setting of 3rd spacing of fluids in the setting of hepatocellular disease and volume overload, hepatosplenomegaly, trace perihepatic ascites, and left-sided pleural effusion. I discussed this case with my attending physician Dr. Sneed. Abdominal and pelvis CT revealing hepatosplenomegaly, abnormal heterogenicity attenuation of the liver, nonspecific, could be seen with acute hepatitis or other forms of hepatocellular disease. Also showing very subtle equivocal punctate gallbladder calculus with minimal layering hyperdense bile sludge. Diffuse gallbladder wall thickening with edema nonspecific in the setting of volume overload and hepatocellular disease. Bilateral pleural effusions, any haziness around the celiac axis route as the mesentery which is stable compared to 10/15/2022. Hyperemia of the gastric wall the proximal duodenum consistent with peptic ulcer disease, gastritis or duodenitis. Patient is afebrile, no leukocytosis. Patient has been medicated with IV fluids, Zofran, and morphine. Patient still complaining right upper quadrant pain and epigastric pain. Time: 01:22 Reevaluation #2: I discussed findings of CT scan and ultrasound and overall workup with Dr. Johnson, who believes that patient's symptoms given findings on ultrasound as well as CT scan are not consistent with gallbladder etiology has common bile duct is within normal limits, calculus are very subtle and only seen on CT scan. Ultrasound is the best test for determining cholecystitis and is not convinced that this is the acute process and recommends getting urine toxicology and managing with hepatitis like workup. I discussed this with my attending physician who agrees with plan. Given patient's presentation, acute liver enzyme elevation and findings on CT scan with abdominal pain, nausea and vomiting. Time: 01:25 Reevaluation #3: Patient is case discussed with hospitalist, Dr. Best accepts transfer of care for hospital admission for acute hepatitis. Discussed this with patient who agrees that she would like to stay for further evaluation workup of this. Time: 02:00 Medications Administered Discontinued Medications Generic Name Dose Route Start Last Admin Trade Name Frekalani PRN Reason Stop Dose Admin Sodium Chloride 1,000 mls @ 999 mls/hr 11/25/22 23:25 11/25/22 23:41 Ns IVCONT 11/26/22 00:25 999 mls/hr .Q1H1M ONE Administration Iohexol 85 ml 11/26/22 00:25 11/26/22 00:26 Iohexol 350 Mg/Ml 100 Ml Infus..Btl IV 11/26/22 00:26 85 ml ONCE ONE Administration Morphine Sulfate 4 mg 11/25/22 23:31 11/25/22 23:41 Morphine Sulfate 4 Mg/Ml Cartridge IVPUSH 11/25/22 23:32 4 mg ONCE ONE Administration Protocol Ondansetron HCl 4 mg 11/25/22 17:25 11/25/22 17:28 Ondansetron Odt 4 Mg Tab.Rapdis TRANSLINGU 11/25/22 17:26 4 mg ONCE ONE Administration Ondansetron HCl 4 mg 11/25/22 23:25 11/25/22 23:41 Ondansetron Hcl 4 Mg/2 Ml Vial IVPUSH 11/25/22 23:26 4 mg ONCE ONE Administration Medical Decision Making Medical Decision Making [facility] Narrative: ?52 year old assigned female with a history of type 2 DM, left BKA, CHF, COPD, and NSTEMI presenting to the emergency department today with left stump wound and a chronic right heel wound, has nausea/vomiting (she contributes this to receiving 2 oxycodone during yesterdays ER visit). Patient denies any fevers or chills. On examination, vital signs within normal limits. Abdomen is soft however patient has epigastric tenderness and right upper quadrant pain. Patient worsening nausea and vomiting. Plan: Labs, antibiotics, abdominal ultrasound Differential Diagnosis Differential Diagnoses: The differential diagnosis associated with the presentation includes Hepatitis, cholecystitis, cholelithiasis, cholangitis, Adverse medication reaction, gastritis, gastroenteritis, electrolyte abnormality Admission/Observation Consideration of admission/observation: Escalation of care including admission/observation considered Lab Data [facility] Lab Attestation statement: I reviewed the patient's lab results. 11/25/22 19:10 11/25/22 19:10 Labs: Lab Results 11/25/22 11/25/22 11/25/22 Range/Units 19:10 19:10 19:10 WBC 8.5 (4.8-10.8) X10*3/uL RBC 5.55 H (4.20-5.50) X10*6/uL Hgb 10.6 L (12.0-16.0) g/dl Hct 38.0 (37.0-47.0) % MCV 68.5 L (80.0-98.0) fL MCH 19.1 L (27.0-33.0) pg MCHC 27.9 L (31.0-35.0) g/dl RDW 21.9 H (11.0-16.0) % Plt Count 207 (160-400) X10*3/uL MPV TNP Immature Gran % (Auto) 0.4 (0.0-0.4) % Neut % (Auto) 73.4 H (45-73) % Lymph % (Auto) 17.0 L (20-40) % [place] % (Auto) 7.9 (2-11) % Eos % (Auto) 0.5 (0-4) % Baso % (Auto) 0.8 (0-2) % Lymph # (Auto) 1.4 (1.2-4.9) X10*3/uL [place] # (Auto) 0.7 (0.1-1.2) X10*3/uL Eos # (Auto) 0.0 (0.0-0.4) X10*3/uL Baso # (Auto) 0.1 (0.0-0.2) X10*3/uL Abs Immat Gran (auto) 0.03 (0.00-0.03) X10*3/uL Absolute Neuts (auto) 6.2 (2.0-8.3) x10*3/uL Absolute Nucleated RBC 0.090 H (0.0-0.012) X10*3/uL Nucleated RBC % (auto) 1.1 H (0.0-0.2) /100WBC ESR (0-20) MM/HR Sodium 135 (135-145) mmol/L Potassium 5.1 (3.3-5.1) mmol/L Chloride 101 (96-108) mmol/L Carbon Dioxide 22 (22-29) mmol/L Anion Gap 17 (12-20) BUN 25 H (9-16) mg/dL Creatinine 1.22 (0.5-1.4) mg/dL Estim Creat Clear Calc 50.5 Estimated GFR 46 Random Glucose 153 H (60-115) mg/dL Lactic Acid 3.0 H* (0.5-2.0) mmol/L Lactic Acid F/U @ 2Hr (0.5-2.0) mmol/L Lactic Acid F/U @ 4Hr (0.5-2.0) mmol/L Calcium 9.5 (8.4-10.2) mg/dL Total Bilirubin 3.1 H (0.0-1.0) mg/dL Direct Bilirubin 1.5 H (0.0-0.5) mg/dL AST 270 H (5-31) U/L ALT 291 H (0-31) U/L Alkaline Phosphatase 97 (39-117) U/L C-Reactive Protein 3.11 H (< or = 0.50) mg/dL Total Protein 6.4 L (6.5-8.0) g/dL Albumin 3.6 (3.5-5.0) g/dL Lipase 10 (8-78) U/L Acetaminophen (<30) mcg/mL 11/25/22 11/25/22 11/25/22 Range/Units 19:10 21:29 21:29 WBC (4.8-10.8) X10*3/uL RBC (4.20-5.50) X10*6/uL Hgb (12.0-16.0) g/dl Hct (37.0-47.0) % MCV (80.0-98.0) fL MCH (27.0-33.0) pg MCHC (31.0-35.0) g/dl RDW (11.0-16.0) % Plt Count (160-400) X10*3/uL MPV Immature Gran % (Auto) (0.0-0.4) % Neut % (Auto) (45-73) % Lymph % (Auto) (20-40) % [place] % (Auto) (2-11) % Eos % (Auto) (0-4) % Baso % (Auto) (0-2) % Lymph # (Auto) (1.2-4.9) X10*3/uL [place] # (Auto) (0.1-1.2) X10*3/uL Eos # (Auto) (0.0-0.4) X10*3/uL Baso # (Auto) (0.0-0.2) X10*3/uL Abs Immat Gran (auto) (0.00-0.03) X10*3/uL Absolute Neuts (auto) (2.0-8.3) x10*3/uL Absolute Nucleated RBC (0.0-0.012) X10*3/uL Nucleated RBC % (auto) (0.0-0.2) /100WBC ESR 2 (0-20) MM/HR Sodium (135-145) mmol/L Potassium (3.3-5.1) mmol/L Chloride (96-108) mmol/L Carbon Dioxide (22-29) mmol/L Anion Gap (12-20) BUN (9-16) mg/dL Creatinine (0.5-1.4) mg/dL Estim Creat Clear Calc Estimated GFR Random Glucose (60-115) mg/dL Lactic Acid (0.5-2.0) mmol/L Lactic Acid F/U @ 2Hr 2.6 H* (0.5-2.0) mmol/L Lactic Acid F/U @ 4Hr (0.5-2.0) mmol/L Calcium (8.4-10.2) mg/dL Total Bilirubin (0.0-1.0) mg/dL Direct Bilirubin (0.0-0.5) mg/dL AST (5-31) U/L ALT (0-31) U/L Alkaline Phosphatase (39-117) U/L C-Reactive Protein (< or = 0.50) mg/dL Total Protein (6.5-8.0) g/dL Albumin (3.5-5.0) g/dL Lipase (8-78) U/L Acetaminophen < 17 (<30) mcg/mL 11/26/22 Range/Units 00:29 WBC (4.8-10.8) X10*3/uL RBC (4.20-5.50) X10*6/uL Hgb (12.0-16.0) g/dl Hct (37.0-47.0) % MCV (80.0-98.0) fL MCH (27.0-33.0) pg MCHC (31.0-35.0) g/dl RDW (11.0-16.0) % Plt Count (160-400) X10*3/uL MPV Immature Gran % (Auto) (0.0-0.4) % Neut % (Auto) (45-73) % Lymph % (Auto) (20-40) % [place] % (Auto) (2-11) % Eos % (Auto) (0-4) % Baso % (Auto) (0-2) % Lymph # (Auto) (1.2-4.9) X10*3/uL [place] # (Auto) (0.1-1.2) X10*3/uL Eos # (Auto) (0.0-0.4) X10*3/uL Baso # (Auto) (0.0-0.2) X10*3/uL Abs Immat Gran (auto) (0.00-0.03) X10*3/uL Absolute Neuts (auto) (2.0-8.3) x10*3/uL Absolute Nucleated RBC (0.0-0.012) X10*3/uL Nucleated RBC % (auto) (0.0-0.2) /100WBC ESR (0-20) MM/HR Sodium (135-145) mmol/L Potassium (3.3-5.1) mmol/L Chloride (96-108) mmol/L Carbon Dioxide (22-29) mmol/L Anion Gap (12-20) BUN (9-16) mg/dL Creatinine (0.5-1.4) mg/dL Estim Creat Clear Calc Estimated GFR Random Glucose (60-115) mg/dL Lactic Acid (0.5-2.0) mmol/L Lactic Acid F/U @ 2Hr (0.5-2.0) mmol/L Lactic Acid F/U @ 4Hr 2.6 H* (0.5-2.0) mmol/L Calcium (8.4-10.2) mg/dL Total Bilirubin (0.0-1.0) mg/dL Direct Bilirubin (0.0-0.5) mg/dL AST (5-31) U/L ALT (0-31) U/L Alkaline Phosphatase (39-117) U/L C-Reactive Protein (< or = 0.50) mg/dL Total Protein (6.5-8.0) g/dL Albumin (3.5-5.0) g/dL Lipase (8-78) U/L Acetaminophen (<30) mcg/mL Independent Interpretation I performed an independent interpretation of an: CT Scan Radiology Impression Discussion of test interpretation with radiology: I have reviewed the radiologist's reading. Radiologist Impression: ADDENDUMA 1.1 cm left adrenal nodule (3:19) is unchanged compared to a baseline examination from 02/05/2020, which is reassuring for benign/indolent etiology such as adenoma. No additional follow-up recommended. Addendum Dictated By: Torri Azevedo Addendum Signed By: <Electronically signed by Torri Azevedo in [place]> 11/26/22 0059 Addendum Cosigned By: DD/ TD/TT: / EXAMINATION: CT ABDOMEN AND PELVIS WITH CONTRAST? CLINICAL INFORMATION: Abdominal pain.? COMPARISON: Abdominal ultrasound 11/25/2022. CT abdomen/pelvis 10/15/2022. TECHNIQUE: Multidetector volumetric images were obtained from the superior aspect of the liver through the pubic symphysis following administration 85 mL of Omnipaque 350 intravenous contrast. Sagittal and coronal reformatted images were obtained on the technologist's workstation.? Oral contrast: No This CT examination was performed using dose optimization techniques as appropriate, variously including the following: *Automated exposure control *Adjustment of mA and/or kV according to patient size (this includes techniques or standardized protocols for targeted exams where dose is matched to indication/reason for exam; i.e. extremities or head) *Use of iterative reconstruction technique DLP: 579 mGy-cm FINDINGS: LUNG BASES: Small to moderate bilateral pleural effusions.? LIVER, GALLBLADDER, AND BILIARY TREE: The liver is enlarged measuring 18.8 cm in craniocaudal dimension and demonstrates diffuse heterogeneous attenuation. No discrete focal liver lesions, although evaluation is limited due to heterogeneity of the background. Mild diffuse gallbladder wall thickening and wall edema. Punctate hyper attenuating focus in the fundus (3:37) could represent a tiny calculus. Subtle layering hyperdense debris, likely sludge. No significant pericholecystic fat stranding or free fluid. PANCREAS: Subtle nonspecific fatty haziness centered around the celiac axis and root of the mesentery, close in proximity with the proximal pancreas, not significantly changed compared to 10/15/2022. No significant peripancreatic fat stranding. The main duct is nondilated. SPLEEN: The spleen is enlarged measuring 16.4 cm craniocaudally.? ADRENAL GLANDS: Nonspecific asymmetry enlargement of the left adrenal gland with mild diffuse hazy attenuation, stable compared to 10/15/2022.? KIDNEYS AND URETERS: Bilateral vascular calcifications limiting assessment of the small calculi. Multifocal subtle cortical scarring. No hydronephrosis. Symmetric nephrograms. No significant perinephric fat stranding.? BLADDER: Unremarkable.? GASTROINTESTINAL TRACT: Hyperemia of the gastric rugae, as well as hyperemia of the antropyloric region and proximal duodenum. Questionable wall thickening and submucosal edema of the stomach antrum, suboptimally assessed due to underdistention (3:31). The small bowel is nondilated. Normal appendix. No pericolonic inflammatory changes or evidence of bowel obstruction. Small volume of ascites.? ABDOMINAL WALL: Anasarca.? LYMPH NODES: No lymphadenopathy by CT short axis size criteria. VASCULAR: Extensive atherosclerotic disease. Abdominal aorta is normal in caliber. PELVIC VISCERA: Small volume of free fluid.? OSSEOUS STRUCTURES: No acute or aggressive appearing osseous abnormalities.? CT/CT abdomen pelvis w IV con IMPRESSION: Hepatosplenomegaly. ? Abnormal heterogeneously attenuation of the liver, nonspecific could be seen with acute hepatitis or other forms of hepatocellular disease. Recommend correlation with liver function tests. ? Very subtle equivocal punctate gallbladder calculus with minimal layering hyperdense bile/sludge. Diffuse gallbladder wall thickening with edema is nonspecific in the setting of volume overload and hepatocellular disease. No significant pericholecystic fat stranding or free fluid. ? Bilateral pleural effusions, anasarca and small volume of ascites suggesting third spacing. ? Nonspecific fatty haziness centered around the celiac axis/root of the mesentery and around the left adrenal gland, stable compared to 10/15/2022. ? Hyperemia of the gastric wall and proximal duodenum, correlate clinically for peptic ulcer disease, gastritis and duodenitis. ? ? Dictated By: Sarita Azevedo Signed By: <Electronically signed by Sarita? Jolly in [place]> 11/26/22 0050 DD/ 0026 TD/TT:? Bacteriologist Industrial: [place] [id number] Ultrasound Report Signed Patient: Keisha Chadwick MR#: [id number] : 1970 Acct:[id number] Age/Sex: 52 / F ADM Date: 11/25/22 Loc: [facility].ED Attending Dr: Ordering Physician: Maria Eugenia Baker Date of Service: 11/25/22 Procedure(s): US abdomen complete Accession Number(s): [id number] cc: Maria Eugenia Baker~ EXAMINATION: US ABDOMEN COMPLETE CLINICAL INFORMATION: Abdominal pain. COMPARISON: CT abdomen/pelvis 10/15/2022. TECHNIQUE: Real-time imaging of the abdominal viscera. FINDINGS: Limited examination secondary to body habitus, shadowing from overlying bowel gas and motion. PANCREAS: Visualized proximal pancreas is within normal limits. The tail is obscured by overlying bowel gas. ABDOMINAL AORTA: The proximal, mid, and distal segments are normal in caliber. INFERIOR VENA CAVA: Visualized portions are normal. LIVER: Enlarged measuring 18 cm in length. Otherwise, normal in shape and attenuation. No discrete focal lesion. No biliary ductal dilatation. Trace perihepatic ascites. GALLBLADDER: Gallbladder wall thickening measuring 0.5 cm. No discrete calculi. No significant pericholecystic free fluid. COMMON BILE DUCT: Normal in caliber measuring 0.4 cm in diameter. RIGHT KIDNEY: Normal. No hydronephrosis. No renal calculi or focal parenchymal lesions. The kidney measures 10.5 cm in maximum dimension. LEFT KIDNEY: Normal. No hydronephrosis. No renal calculi or focal parenchymal lesions. The kidney measures 10 cm in maximum dimension. SPLEEN: Mild splenomegaly measuring 15 cm in length. FREE FLUID: Trace perihepatic ascites. Partially imaged left-sided pleural effusion. US/US abdomen complete IMPRESSION: Limited examination secondary to body habitus, shadowing from overlying bowel gas and motion. 1.? Nonspecific gallbladder wall thickening. This could be seen in the setting of third spacing of fluids in the setting of hepatocellular disease and volume overload. 2.? Hepatosplenomegaly. 3.? Trace perihepatic ascites. 4.? Partially imaged left-sided pleural effusion. ? External Record Review External record reviewed: Inpatient record, Office record, Outpatient record, Prior outpatient labs, Prior outpatient radiology, Primary care record and Outside ED record Discharge Plan Discharge Clinical Impression: Acute hepatitis Patient Disposition: Admitted As Inpatient
[2022-11-25 17:24] VITALS: BP 136/80; PULSE 106; RESP 20; TEMP 36.8; O2SAT 100; BMI 26.6
[2022-11-25] MEDS: Ondansetron ODT 4 MG TAB.RAPDIS TRANSLINGU (17:28)
[2022-11-25 19:20] LABS: MANUAL DIFF FLAG NO
[2022-11-25 19:22] LABS: Hemoglobin 10.6 g/dl (12.0-16.0); Imm Gran Abs Auto 0.03 X10*3/uL (0.00-0.03); Imm Gran Pct Auto 0.4 % (0.0-0.4); SCAN SMEAR FLAG 1
[2022-11-25 19:24] LABS: Basophils Absolute Auto 0.1 X10*3/uL (0.0-0.2); Basophils Percent Auto 0.8 % (0-2); Eosinophils Percent Auto 0.5 % (0-4); Lymphocytes Absolute Auto 1.4 X10*3/uL (1.2-4.9); Mean Corpuscular HGB Conc 27.9 g/dl (31.0-35.0); Mean Corpuscular Hemoglobin 19.1 pg (27.0-33.0); Mean Corpuscular Volume 68.5 fL (80.0-98.0); Monocytes Absolute Auto 0.7 X10*3/uL (0.1-1.2); Monocytes Percent Auto 7.9 % (2-11); Neutrophils Absolute Auto 6.2 x10*3/uL (2.0-8.3); Neutrophils Percent Auto 73.4 % (45-73); Platelet Count 207 X10*3/uL (160-400); Red Blood Count 5.55 X10*6/uL (4.20-5.50); Red Cell Distribution Width 21.9 % (11.0-16.0); White Blood Count 8.5 X10*3/uL (4.8-10.8)
[2022-11-25 19:26] LABS: NRBC Pct Auto 1.1 /100WBC (0.0-0.2); PLT ABN DIST 1
[2022-11-25 19:43] LABS: Alanine Aminotransferase 291 U/L (0-31); Albumin Level 3.6 g/dL (3.5-5.0); Alkaline Phosphatase 97 U/L (39-117); Anion Gap 17 (12-20); Aspartate Amino Transferase 270 U/L (5-31); Bilirubin Direct 1.5 mg/dL (0.0-0.5); Bilirubin Total 3.1 mg/dL (0.0-1.0); Blood Urea Nitrogen 25 mg/dL (9-16); Calcium 9.5 mg/dL (8.4-10.2); Carbon Dioxide 22 mmol/L (22-29); Chloride 101 mmol/L (96-108); Creatinine Clr Calc Pharmacy 50.5; Estimated Glomerular Filt Rate 46; Glucose Random 153 mg/dL (60-115); Potassium 5.1 mmol/L (3.3-5.1); Sodium 135 mmol/L (135-145); Total Protein 6.4 g/dL (6.5-8.0)
--- NOTE | 2022-11-25 19:50 | PC.NURSE ---
this rn assumed care of pt @ 1900. critical lactic acid of 3.0 report by lab. this rn made roberto reyna aware of critical result. no new orders at this time
--- NOTE | 2022-11-25 21:17 | PC.NURSE ---
pt tearful reporting bilateral foot pain. pt denies n/v at this time. this rn made [facility] aware of pt report. no new orders at this time
[2022-11-25 21:19] LABS: Reflex Lactate? Lactic Acid Added
[2022-11-25 21:22] LABS: C Reactive Protein 3.11 mg/dL (< or = 0.50); Lipase 10 U/L (8-78)
[2022-11-25 21:51] LABS: ~Lactic Acid-LAB USE ONLY 2.6 mmol/L (0.5-2.0)
[2022-11-25 21:57] LABS: Acetaminophen LAB < 17 mcg/mL (<30)
[2022-11-25 22:07] LABS: Erythrocyte Sedimentation Rate 2 MM/HR (0-20)
[2022-11-25 22:45] VITALS: BP 128/86; PULSE 108; RESP 18; TEMP 36.4; O2SAT 100
[2022-11-25 23:32] LABS: Reflex Lactate? 2 Y
[2022-11-25] MEDS: ondansetron HCL 4 MG/2 ML VIAL IVPUSH (23:41)
[2022-11-25] MEDS: 0.9 % Sodium Chloride 1,000 ML 999 ML IVCONT (23:41)
[2022-11-25] MEDS: Morphine Sulfate 4 MG/ML CARTRIDGE IVPUSH (23:41)
--- NOTE | 2022-11-25 23:55 | PC.NURSE ---
20 g iv placed in L AC. pt tolerated well. pt medicated according to mar. pt down to ct. pt partner at bedside. pt tearful
[2022-11-26] VITALS (9 sets, daily range): BP systolic 119–136; BP diastolic 62–86; PULSE 65–104; RESP 16–19; TEMP 36.2–36.6; O2SAT 94–100; BMI 29.7; BMI 30.1
[2022-11-26] MEDS: iohexoL 350 MG/ML 100 ML INFUS..BTL 85 ML IV (00:26)
--- NOTE | 2022-11-26 00:37 | PC.NURSE ---
pt placed on playground monitor. repeat LA drawn and sent down to lab. pt resting positioned on back at this time
[2022-11-26 00:50] LABS: ~Lactic Acid-LAB USE ONLY 2.6 mmol/L (0.5-2.0)
--- NOTE | 2022-11-26 02:19 | P.HPHOSP_ITS ---
History of Present Illness Date of Service: 11/26/22 Chief Complaint: abdominal pain Keisha is a 52-year-old female past medical history of CHF, CAD status post NSTEMI, left below-knee amputation, COPD, diabetes, HTN, ischemic cardiomyopathy, peripheral artery disease, who presents the hospital with complaints of abdominal pain nausea vomiting. Patient is oriented to self and place, but acting very strange. She has itching everywhere, reports that she is having a reaction to something that she received. She was seen in the hospital the day before for chronic pain, was given 15 mg of oxycodone x2, patient reports that this a high-dose for her, and she feels strange as a result. patient also reports abdominal pain nausea and vomiting vomiting, the abdominal pain is the in the right upper quadrant, started yesterday, not associated with any nausea or vomiting, denies any diarrhea constipation, no fever chills. she denies any chest pain, no shortness of breath, no orthopnea or PND. On arrival to the ED patient hemodynamically stable with no significant abnormal vitals Labs are significant for WBC count of 8.5, hemoglobin of 10.6, hematocrit 38, all within her baseline, BUN of 25, creatinine of 1.22 with a baseline, normal sodium potassium, lactic acid of 3 total bili of 3.1, direct bili of 1.5, AST of 270, ALT of 291 which are higher than the readings from day prior, alk-phos of 97, CRP of 3.1, hepatitis panel pending. Abdominal pelvic CT showed hepatosplenomegaly, abnormal heterogeneously attenuation of the liver nonspecific and could be seen with acute hepatitis Very subtle equivocal punctate gallbladder calculus with minimal layering, hyperdense bile sludge. Diffuse gallbladder wall thickening with edema is nonspecific. No significant pericholecystic fat stranding or free fluid. Bilateral pleural effusion, anasarca on small volume of ascites, Review of Systems Review of Systems: Yes all other systems are reviewed and are negative FOR[facility]LY [facility], [facility] Medical History Asthma Atherosclerotic cardiovascular disease Atrial tachycardia Below-knee amputation of left lower extremity Cellulitis in diabetic foot COPD (chronic obstructive pulmonary disease) Coronary artery disease COVID-19 vaccine series completed Diabetes Diabetic foot infection Diabetic foot infection Diabetic foot ulcer Diabetic toe ulcer Essential hypertension GERD (gastroesophageal reflux disease) Hyperglycemia due to diabetes mellitus Hypertension Ischemic cardiomyopathy Left against medical advice Left against medical advice Osteomyelitis Osteomyelitis 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 PAD (peripheral artery disease) Family History Mother Hx of CABG Sister CAD (coronary artery disease) Surgical History History of esophagogastroduodenoscopy (EGD) History of toe surgery (09/22/21) Status post below-knee amputation of left lower extremity (09/20/22) Social History Household Members: Family and Children Housing: Apartment Do you presently have visiting nurse or other home services: No Unable to assess alcohol history related to: Refusing to respond Alcohol intake: never Patient Tobacco Use Status: Current everyday Tobacco user Tobacco use type: Cigarette Cigarette Packs Per Day: 0.5 Cigarettes Per Day: 6 Years Smoked: 43 e-Cigarette/Vaping Use: Currently Using Second Hand Smoke Exposure: Yes Substance Use Type: Marijuana Advance Directives: Yes Advance Directives on File: Yes Advance Directives Date on File: 09/22/22 Nutrition Risks: No Nutritional Risk service: No Current occupational status: disabled Meds Allergies Allergy/AdvReac Type Severity Reaction Status Date / Time Penicillins [PENICILLINS] Allergy Severe RASH Verified 11/22/22 14:46 amoxicillin [AMOXICILLIN] Allergy Intermediate HIVES Verified 11/22/22 14:46 perflutren [From Definity] AdvReac Back Pain Verified 11/22/22 14:46 Home Medications Medication Instructions Recorded Confirmed Last Taken Type clopidogrel 75 mg tablet 75 mg PO DAILY 11/24/22 11/26/22 Unknown History glipizide 5 mg-metformin 500 mg 2 tab PO BID 11/24/22 11/26/22 Unknown History tablet Physical Exam Vital Signs and Narrative: Vital Signs: Last Vital Signs Temp 97.6 F 11/25/22 22:45 Pulse 104 H 11/26/22 00:05 Resp 19 11/26/22 00:05 BP 136/86 11/26/22 00:05 Pulse Ox 100 11/26/22 00:05 O2 Del Method Room Air 11/26/22 00:05 BMI result Body Mass Index 26.6 Const: General: cooperative and no acute distress Orientation/consciousness: patient oriented x3 Eyes: General: appearance normal, both eyes and all related structures Pupils: Equal, round and reactive pupils present Resp: Effort & Inspection: normal respiratory effort Auscultation: clear to auscultation bilaterally Cardio: Rate: regular rate Rhythm: regular rhythm GI: Other: abdomen is tender in the right upper quadrant, patient guards, and has rebound Palpation (GI): Soft to palpation Auscultation: normal bowel sounds Skin: General skin exam: no rashes or lesions noted Neuro: General: patient oriented x3 Cranial nerves: Yes Equal, round and reactive pupils present Cognition (Neuro): normal cognition Extrem: Other: Left below-knee amputation, erythema of both legs, 2+ pitting edema in the right leg Results Labs 11/25/22 19:10 11/25/22 19:10 Labs: Laboratory Results - last 24 hr 11/25/22 11/25/22 11/25/22 19:10 19:10 19:10 MCV 68.5 L MCH 19.1 L MCHC 27.9 L RDW 21.9 H Plt Count 207 MPV TNP Immature Gran % (Auto) 0.4 Neut % (Auto) 73.4 H Lymph % (Auto) 17.0 L [place] % (Auto) 7.9 Eos % (Auto) 0.5 Baso % (Auto) 0.8 Lymph # (Auto) 1.4 [place] # (Auto) 0.7 Eos # (Auto) 0.0 Baso # (Auto) 0.1 Abs Immat Gran (auto) 0.03 Absolute Neuts (auto) 6.2 Absolute Nucleated RBC 0.090 H Nucleated RBC % (auto) 1.1 H ESR Anion Gap 17 Estim Creat Clear Calc 50.5 Estimated GFR 46 Random Glucose 153 H Lactic Acid 3.0 H* Lactic Acid F/U @ 2Hr Lactic Acid F/U @ 4Hr Calcium 9.5 Total Bilirubin 3.1 H Direct Bilirubin 1.5 H AST 270 H ALT 291 H Alkaline Phosphatase 97 C-Reactive Protein 3.11 H Total Protein 6.4 L Albumin 3.6 Lipase 10 Acetaminophen 11/25/22 11/25/22 11/25/22 19:10 21:29 21:29 MCV MCH MCHC RDW Plt Count MPV Immature Gran % (Auto) Neut % (Auto) Lymph % (Auto) [place] % (Auto) Eos % (Auto) Baso % (Auto) Lymph # (Auto) [place] # (Auto) Eos # (Auto) Baso # (Auto) Abs Immat Gran (auto) Absolute Neuts (auto) Absolute Nucleated RBC Nucleated RBC % (auto) ESR 2 Anion Gap Estim Creat Clear Calc Estimated GFR Random Glucose Lactic Acid Lactic Acid F/U @ 2Hr 2.6 H* Lactic Acid F/U @ 4Hr Calcium Total Bilirubin Direct Bilirubin AST ALT Alkaline Phosphatase C-Reactive Protein Total Protein Albumin Lipase Acetaminophen < 17 11/26/22 00:29 MCV MCH MCHC RDW Plt Count MPV Immature Gran % (Auto) Neut % (Auto) Lymph % (Auto) [place] % (Auto) Eos % (Auto) Baso % (Auto) Lymph # (Auto) [place] # (Auto) Eos # (Auto) Baso # (Auto) Abs Immat Gran (auto) Absolute Neuts (auto) Absolute Nucleated RBC Nucleated RBC % (auto) ESR Anion Gap Estim Creat Clear Calc Estimated GFR Random Glucose Lactic Acid Lactic Acid F/U @ 2Hr Lactic Acid F/U @ 4Hr 2.6 H* Calcium Total Bilirubin Direct Bilirubin AST ALT Alkaline Phosphatase C-Reactive Protein Total Protein Albumin Lipase Acetaminophen Imaging Radiologist's Impressions: Impressions Abdomen Ultrasound 11/25/22 21:47 IMPRESSION: Limited examination secondary to body habitus, shadowing from overlying bowel gas and motion. 1. Nonspecific gallbladder wall thickening. This could be seen in the setting of third spacing of fluids in the setting of hepatocellular disease and volume overload. 2. Hepatosplenomegaly. 3. Trace perihepatic ascites. 4. Partially imaged left-sided pleural effusion. Abdomen/Pelvis CT 11/26/22 00:26 IMPRESSION: Hepatosplenomegaly. Abnormal heterogeneously attenuation of the liver, nonspecific could be seen with acute hepatitis or other forms of hepatocellular disease. Recommend correlation with liver function tests. Very subtle equivocal punctate gallbladder calculus with minimal layering hyperdense bile/sludge. Diffuse gallbladder wall thickening with edema is nonspecific in the setting of volume overload and hepatocellular disease. No significant pericholecystic fat stranding or free fluid. Bilateral pleural effusions, anasarca and small volume of ascites suggesting third spacing. Nonspecific fatty haziness centered around the celiac axis/root of the mesentery and around the left adrenal gland, stable compared to 10/15/2022. Hyperemia of the gastric wall and proximal duodenum, correlate clinically for peptic ulcer disease, gastritis and duodenitis. Assessment and Plan (1) Acute hepatitis: Status: Acute (2) Allergic reaction: Qualifiers: Encounter type: initial encounter Qualified Code(s): T78.40XA - Allergy, unspecified, initial encounter Status: Acute (3) Transaminitis: Status: Acute Plan 52-year-old female with past medical history as above presents the hospital with abdominal pain nausea vomiting found to have acute transaminitis # abdominal pain nausea vomiting - possibly secondary to acute hepatitis versus acute gallbladder disease such as cholecystitis - patient afebrile, has no leukocytosis - has elevated LFTs as compared to day prior in the 100s - ultrasound of the abdomen showed limited exam but nonspecific gallbladder wall thickening - at this time will obtain HIDA scan - pending liver studies including hepatitis, and other autoimmune markers - this case was discussed with surgery, did not feel that this is acute cholecystitis, at this time will hold off on IV antibiotics pending HIDA scan # acute transaminitis - possibly secondary to mentioned reasons - patient started on IV fluids - follow labs, follow LFTs # allergic reaction - patient is itching all over her body, has what appears to be hives in her lower extremities - she is not sure which she is allergic to - received Benadryl with relief # ischemic cardiomyopathy - not in exacerbation - continue furosemide # History of CAD - continue home medications # diabetes - hold oral antihyperglycemics - will add low-dose sliding scale insulin - diabetic diet # history of COPD - not in exacerbation - continue home inhalers # hypertension - stable - continue antihypertensives DVT prophylaxis: Lovenox given patient's need for further workup for acute hepatitis patient require minimum 2 nights inpatient hospital stay for further management and monitoring Time Spent With Patient Time: Total time managing care of this patient today ____ minutes. Quality Stroke Does the patient have a stroke diagnosis?: No VTE Prior VTE?: No VTE Risk Level:: Medical - moderate - high VTE Device Contraindication: Treatment Not Indicated VTE Drug Contraindication: N/A - Med Ordered
[2022-11-26] MEDS: diphenhydrAMINE HCL 50 MG/ML VIAL IVPUSH (02:21)
[2022-11-26] MEDS: Morphine Sulfate 4 MG/ML CARTRIDGE IVPUSH ×2 (02:49→13:17)
[2022-11-26] MEDS: Enoxaparin Sodium 40 MG/0.4 ML SYRINGE SUBCUT (02:49)
[2022-11-26 03:21] LABS: Basophils Absolute Auto 0.1 X10*3/uL (0.0-0.2); Basophils Percent Auto 0.6 % (0-2); Eosinophils Absolute Auto 0.1 X10*3/uL (0.0-0.4); Eosinophils Percent Auto 0.8 % (0-4); Hemoglobin 10.5 g/dl (12.0-16.0); Imm Gran Abs Auto 0.04 X10*3/uL (0.00-0.03); Imm Gran Pct Auto 0.5 % (0.0-0.4); PLT ABN DIST 1; Red Cell Distribution Width 21.9 % (11.0-16.0); SCAN SMEAR FLAG 1
[2022-11-26 03:23] LABS: Hematocrit 36.6 % (37.0-47.0); Lymphocytes Absolute Auto 1.8 X10*3/uL (1.2-4.9); Lymphocytes Percent Auto 20.9 % (20-40); Mean Corpuscular HGB Conc 28.7 g/dl (31.0-35.0); Mean Corpuscular Hemoglobin 19.5 pg (27.0-33.0); Monocytes Absolute Auto 0.7 X10*3/uL (0.1-1.2); Monocytes Percent Auto 8.2 % (2-11); NRBC Pct Auto 1.2 /100WBC (0.0-0.2); Neutrophils Absolute Auto 5.8 x10*3/uL (2.0-8.3); Platelet Count 205 X10*3/uL (160-400); Red Blood Count 5.38 X10*6/uL (4.20-5.50); White Blood Count 8.4 X10*3/uL (4.8-10.8)
[2022-11-26 03:25] LABS: MANUAL DIFF FLAG NO
[2022-11-26 03:47] LABS: Alanine Aminotransferase 305 U/L (0-31); Albumin Level 3.3 g/dL (3.5-5.0); Alkaline Phosphatase 88 U/L (39-117); Anion Gap 20 (12-20); Aspartate Amino Transferase 248 U/L (5-31); Bilirubin Total 3.2 mg/dL (0.0-1.0); Blood Urea Nitrogen 28 mg/dL (9-16); Calcium 9.2 mg/dL (8.4-10.2); Carbon Dioxide 17 mmol/L (22-29); Chloride 103 mmol/L (96-108); Creatinine Clr Calc Pharmacy 43.4; Estimated Glomerular Filt Rate 39; Glucose Random 117 mg/dL (60-115); Potassium 5.7 mmol/L (3.3-5.1); Sodium 134 mmol/L (135-145); Total Protein 6.3 g/dL (6.5-8.0)
[2022-11-26] MEDS: Lactated Ringers 1,000 ML 100 ML IVCONT (06:34)
[2022-11-26 06:52] LABS: Anion Gap 14 (12-20); Blood Urea Nitrogen 28 mg/dL (9-16); Carbon Dioxide 22 mmol/L (22-29); Chloride 104 mmol/L (96-108); Creatinine Clr Calc Pharmacy 44.6; Estimated Glomerular Filt Rate 40; Glucose Random 95 mg/dL (60-115); Potassium 5.1 mmol/L (3.3-5.1); Sodium 135 mmol/L (135-145)
--- NOTE | 2022-11-26 07:25 | PHA.MEDREC ---
Pharmacy Consult ? Medication Reconciliation Pharmacy has completed the medication reconciliation. Reviewed med rec done by nursing (Maryanne). Patient was recently discharged 11/24/22. Med rec was done during their prior visit with no changes to meds outside discharge meds.
[2022-11-26 09:45] LABS: Glucose, Whole Blood 67 mg/dL (60-115)
--- NOTE | 2022-11-26 09:56 | PC.NURSE ---
Addendum entered by Dodie Guerra RN 11/26/22 10:50: 25gm dextrose given for blood sugar of 68 and pt being NPO, MITZI Flores aware. Pt tolerated well, Pt brought to [facility], then to be admitted to [facility]. Original Note: Assumed care of patient at 0645, patient drowsy but arousable to voice, able to make needs known, answers questions appropriately. Pt does not report pain at this time. Pt blood suagr 68 this am, but asymptomatic of hypoglycemia, MITZI Flores made aware, no new orders at this time. All safety measures in place.
[2022-11-26] MEDS: Dextrose 50 % 25 GM/50 ML SYRINGE IVPUSH (10:25)
[2022-11-26 13:17] LABS: Glucose, Whole Blood 133 mg/dL (60-115)
--- NOTE | 2022-11-26 15:18 | HO.PM.IMPN ---
Subjective Subjective Date of Service: 11/26/22 Interval History: seen and examined this morning Follow-up for abdominal pain when inquiring where abdominal pain is located patient initially points to bilateral upper quadrants then a short time later bilateral lower quadrants denies nausea or vomiting Review of Systems Review of Systems: Yes all other systems are reviewed and are negative Constitutional Constitutional: Denies chills and Denies fever(s) Cardiovascular Cardiovascular: Denies chest pain, Denies palpitations and Denies dyspnea Respiratory Respiratory: Denies cough and Denies dyspnea Gastrointestinal Gastrointestinal: Reports abdominal pain, Denies diarrhea, Denies nausea and Denies vomiting Endocrine Endocrine: Denies palpitations Physical Exam Vital Signs: Vital Signs: Last Vital Signs Temp 98 F 11/26/22 13:05 Pulse 78 11/26/22 13:05 Resp 18 11/26/22 13:05 BP 130/71 11/26/22 13:05 Pulse Ox 96 11/26/22 13:05 O2 Del Method Room Air 11/26/22 13:05 BMI result Body Mass Index 30.1 Const: General: cooperative, no acute distress, alert and awake Nutritional Appearance: overweight Resp: Effort & Inspection: normal respiratory effort, able to speak in complete sentences, no respiratory distress and no use of accessory muscles Cardio: Rate: regular rate Heart sounds: S1 normal heart sound present and S2 normal heart sound present GI: Other: gerneralized tenderness Inspection: No distended Palpation (GI): Soft to palpation Neuro: General: CN's II-XI intact bilaterally Extrem: Other: s/p left AKA; open area on stump no drainage; right leg with 1-2+ edema Objective Data Active Medications Acetaminophen (Acetaminophen 325 Mg Tablet) 650 mg PO Q6H PRN PRN Reason: Pain, Mild (Pain Scale 1-3) Albuterol Sulfate (Albuterol Sulfate (0.083%) 2.5 Mg/3 Ml Vial.Neb) 2.5 mg INHALE Q6H PRN PRN Reason: Wheezing Albuterol/Ipratropium (Albuterol/Iprat 2.5/0.5mg 3 Ml Ampul.Neb) 3 ml INHALE TID MÓNICA Last Admin: 11/26/22 10:17 Dose: Not Given Documented By: NEVIN Non-Admin Reason: Med Not Available Carvedilol (Carvedilol 3.125 Mg Tablet) 3.125 mg PO BID [facility]; Protocol Dextrose (Dextrose 50 % 25 Gm/50 Ml Syringe) 25 gm IVPUSH Q15M PRN; Protocol PRN Reason: per Hypoglycemia Standing Ord. Last Admin: 11/26/22 10:25 Dose: 25 gm Documented By: NEVIN Enoxaparin Sodium (Enoxaparin Sodium 40 Mg/0.4 Ml Syringe) 40 mg SUBCUT Q24H [facility] Last Admin: 11/26/22 02:49 Dose: 40 mg Documented By: DARON Furosemide (Furosemide 40 Mg Tablet) 40 mg PO BID MÓNICA; Protocol Last Admin: 11/26/22 10:22 Dose: Not Given Documented By: NEVIN Non-Admin Reason: per Sandra hold Glucose (Glucose Gel 15 Gm Gel..Gram.) 15 gm PO Q15M PRN; Protocol PRN Reason: per Hypoglycemia Standing Ord. Lactated Ringer's (Lr) 1,000 mls @ 100 mls/hr IVCONT .Q10H [facility] Last Admin: 11/26/22 06:34 Dose: 100 mls/hr Documented By: NO Insulin Human Lispro (Insulin Lispro 100 Unit/Ml 3 Ml Vial) 0 unit SUBCUT QIDACHS [facility]; Protocol Last Admin: 11/26/22 13:11 Dose: Not Given Documented By: NIKO Non-Admin Reason: No Insulin Coverage Morphine Sulfate (Morphine Sulfate 4 Mg/Ml Cartridge) 4 mg IVPUSH Q4H PRN; Protocol PRN Reason: Pain, Severe (Pain Scale 7-10) Last Admin: 11/26/22 13:17 Dose: 4 mg Documented By: NIKO Non-Formulary Medication (Umeclidinium [Incruse Ellipta]) 1 puff PO DAILY [facility] Ondansetron HCl (Ondansetron Hcl 4 Mg/2 Ml Vial) 4 mg IVPUSH Q8H PRN PRN Reason: Nausea and Vomiting Polyethylene Glycol (Polyethylene Glycol 3350 17 Gm Powd.Pack) 17 gm PO DAILY PRN PRN Reason: Constipation Sodium Chloride (0.9 % Sodium Chloride Flush 3 Ml Syringe) 3 ml IVFLUSH QSHIFT [facility] Last Admin: 11/26/22 09:07 Dose: Not Given Documented By: NEVIN Non-Admin Reason: IV Running Labs 11/26/22 03:01 11/26/22 05:58 Labs: Laboratory Results - last 24 hr 11/25/22 11/25/22 11/25/22 19:10 19:10 19:10 MCV 68.5 L MCH 19.1 L MCHC 27.9 L RDW 21.9 H Plt Count 207 MPV TNP Immature Gran % (Auto) 0.4 Neut % (Auto) 73.4 H Lymph % (Auto) 17.0 L [place] % (Auto) 7.9 Eos % (Auto) 0.5 Baso % (Auto) 0.8 Lymph # (Auto) 1.4 [place] # (Auto) 0.7 Eos # (Auto) 0.0 Baso # (Auto) 0.1 Abs Immat Gran (auto) 0.03 Absolute Neuts (auto) 6.2 Absolute Nucleated RBC 0.090 H Nucleated RBC % (auto) 1.1 H ESR Anion Gap 17 Estim Creat Clear Calc 50.5 Estimated GFR 46 POC Glucose Random Glucose 153 H Lactic Acid 3.0 H* Lactic Acid F/U @ 2Hr Lactic Acid F/U @ 4Hr Calcium 9.5 Total Bilirubin 3.1 H Direct Bilirubin 1.5 H AST 270 H ALT 291 H Alkaline Phosphatase 97 C-Reactive Protein 3.11 H Total Protein 6.4 L Albumin 3.6 Lipase 10 Acetaminophen 11/25/22 11/25/22 11/25/22 19:10 21:29 21:29 MCV MCH MCHC RDW Plt Count MPV Immature Gran % (Auto) Neut % (Auto) Lymph % (Auto) [place] % (Auto) Eos % (Auto) Baso % (Auto) Lymph # (Auto) [place] # (Auto) Eos # (Auto) Baso # (Auto) Abs Immat Gran (auto) Absolute Neuts (auto) Absolute Nucleated RBC Nucleated RBC % (auto) ESR 2 Anion Gap Estim Creat Clear Calc Estimated GFR POC Glucose Random Glucose Lactic Acid Lactic Acid F/U @ 2Hr 2.6 H* Lactic Acid F/U @ 4Hr Calcium Total Bilirubin Direct Bilirubin AST ALT Alkaline Phosphatase C-Reactive Protein Total Protein Albumin Lipase Acetaminophen < 17 11/26/22 11/26/22 11/26/22 00:29 03:01 03:01 MCV 68.0 L MCH 19.5 L MCHC 28.7 L RDW 21.9 H Plt Count 205 MPV Not Reportable Immature Gran % (Auto) 0.5 H Neut % (Auto) 69.0 Lymph % (Auto) 20.9 [place] % (Auto) 8.2 Eos % (Auto) 0.8 Baso % (Auto) 0.6 Lymph # (Auto) 1.8 [place] # (Auto) 0.7 Eos # (Auto) 0.1 Baso # (Auto) 0.1 Abs Immat Gran (auto) 0.04 H Absolute Neuts (auto) 5.8 Absolute Nucleated RBC 0.100 H Nucleated RBC % (auto) 1.2 H ESR Anion Gap 20 Estim Creat Clear Calc 43.4 Estimated GFR 39 POC Glucose Random Glucose 117 H Lactic Acid Lactic Acid F/U @ 2Hr Lactic Acid F/U @ 4Hr 2.6 H* Calcium 9.2 Total Bilirubin 3.2 H Direct Bilirubin AST 248 H ALT 305 H Alkaline Phosphatase 88 C-Reactive Protein Total Protein 6.3 L Albumin 3.3 L Lipase Acetaminophen 11/26/22 11/26/22 11/26/22 05:58 09:41 13:11 MCV MCH MCHC RDW Plt Count MPV Immature Gran % (Auto) Neut % (Auto) Lymph % (Auto) [place] % (Auto) Eos % (Auto) Baso % (Auto) Lymph # (Auto) [place] # (Auto) Eos # (Auto) Baso # (Auto) Abs Immat Gran (auto) Absolute Neuts (auto) Absolute Nucleated RBC Nucleated RBC % (auto) ESR Anion Gap 14 Estim Creat Clear Calc 44.6 Estimated GFR 40 POC Glucose 67 133 H Random Glucose 95 Lactic Acid Lactic Acid F/U @ 2Hr Lactic Acid F/U @ 4Hr Calcium 9.0 Total Bilirubin Direct Bilirubin AST ALT Alkaline Phosphatase C-Reactive Protein Total Protein Albumin Lipase Acetaminophen Assessment and Plan (1) Transaminitis: Status: Acute Plan 52-year-old female with past medical history of CAD, PAD, DM, COPD/asthma, HTN, HLD left BKA 09/20/2022, presents the hospital with abdominal pain nausea vomiting found to have acute transaminitis. patient does not know any of her medical issues, insists that she has no heart disease and is unsure what medications she takes at baseline. abdominal pain/transaminitis possibly secondary to acute hepatitis versus acute gallbladder disease such as cholecystitis ultrasound of the abdomen showed limited exam but nonspecific gallbladder wall thickening HIDA scan pending pending liver studies including hepatitis, and other autoimmune markers case was discussed with surgery, did not feel that this is acute cholecystitis, at this time will hold off on IV antibiotics pending HIDA scan hold statin Chronic HFrEF continue Coreg, Lasix CAD STEMI status post drug-eluting stent to the proximal LAD in August 2022 with ischemic cardiomyopathy and ejection fraction of 20% continue Coreg statin on hold for transaminitis continue plavix h/o PE [place] [facility] [place] no AC on med list pharmacy documentation states she is no longer taking, reason unclear patient thinks she may be taking a blood thinner but is not sure concern for possible cholecystitis therefore will hold Eliquis for now but likely resume if no surgical intervention planned diabetes hold oral antihyperglycemics continue SSI diabetic diet COPD not in exacerbation continue home inhalers hypertension stable continue antihypertensives DVT prophylaxis: Korin attending - dr. correia requires ongoing inpatient hospitalization for evaluation of elevated LFTs Time Spent With Patient Time: Total time managing care of this patient today ____ minutes. Quality Stroke Does the patient have a stroke diagnosis?: No VTE Prior VTE?: No VTE Risk Level:: Medical - moderate - high VTE Device Contraindication: Treatment Not Indicated VTE Drug Contraindication: N/A - Med Ordered
[2022-11-26] MEDS: 0.9 % Sodium Chloride Flush 3 ML SYRINGE IVFLUSH (15:36)
--- NOTE | 2022-11-26 16:07 | PC.NURSE ---
Left stump incision oozing clear drainage,open area present toward bottom of incision,area cleansed with NS and dsd applied
[2022-11-26] MEDS: Albuterol/Iprat 2.5/0.5MG 3 ML AMPUL.NEB INHALE ×2 (16:11→20:31)
[2022-11-26 16:20] LABS: Glucose, Whole Blood 153 mg/dL (60-115)
[2022-11-26] MEDS: Insulin Lispro 100 UNIT/ML 3 ML VIAL SUBCUT ×2 (17:24→20:33)
[2022-11-26] MEDS: Morphine Sulfate 4 MG/ML CARTRIDGE 2 MG IVPUSH ×2 (17:33→21:57)
--- NOTE | 2022-11-26 18:28 | PM.CNGS ---
History of Present Illness Consult details Consult date: 11/26/22 Reason for consult: other Requesting physician: Stephanie Flores Narrative: Keisha is a 52-year-old female past medical history of CHF, CAD status post NSTEMI,? left below-knee amputation, COPD, diabetes, HTN, ischemic cardiomyopathy, peripheral artery disease, who presents the hospital with complaints of abdominal pain nausea vomiting.? Patient is oriented to self and place, but acting very strange.? She has itching everywhere, reports that she is having a reaction to something that she received.? She was in the hospital before for pain meds and labs were normal. Here GB on u/s looked wall thickening but no true findings consistent with acute cholecystitis. CBD normal in size. CT scan showing enalrged liver and GB similar findings and maybe a stone material. Now she is feeling better today. Labs stil elevated. HIDA scan shows tracer in GB but not in bowels and no sig ejection of contrast. ? CBD stone obstruction PMFSH Past Medical History Medical History Asthma Atherosclerotic cardiovascular disease Atrial tachycardia Below-knee amputation of left lower extremity Cellulitis in diabetic foot COPD (chronic obstructive pulmonary disease) Coronary artery disease COVID-19 vaccine series completed Diabetes Diabetic foot infection Diabetic foot infection Diabetic foot ulcer Diabetic toe ulcer Essential hypertension GERD (gastroesophageal reflux disease) Hyperglycemia due to diabetes mellitus Hypertension Ischemic cardiomyopathy Left against medical advice Left against medical advice Osteomyelitis Osteomyelitis 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 PAD (peripheral artery disease) Family History Family History Mother Hx of CABG Sister CAD (coronary artery disease) Surgical History Surgical History History of esophagogastroduodenoscopy (EGD) History of toe surgery (09/22/21) Status post below-knee amputation of left lower extremity (09/20/22) Social History Social History Household Members: Significant Other and Children Housing: Apartment Do you presently have visiting nurse or other home services: Yes Unable to assess alcohol history related to: Refusing to respond Alcohol intake: never Patient Tobacco Use Status: Current everyday Tobacco user Tobacco use type: Cigarette Cigarette Packs Per Day: 0.5 Cigarettes Per Day: 6 Years Smoked: 43 e-Cigarette/Vaping Use: Currently Using Second Hand Smoke Exposure: Yes Substance Use Type: Marijuana Advance Directives Date on File: 09/22/22 service: No Current occupational status: disabled Meds Allergies Allergy/AdvReac Type Severity Reaction Status Date / Time Penicillins [PENICILLINS] Allergy Severe RASH Verified 11/22/22 14:46 amoxicillin [AMOXICILLIN] Allergy Intermediate HIVES Verified 11/22/22 14:46 perflutren [From Definity] AdvReac Back Pain Verified 11/22/22 14:46 Active Medications: Current Medications Acetaminophen (Acetaminophen 325 Mg Tablet) 650 mg PO Q6H PRN PRN Reason: Pain, Mild (Pain Scale 1-3) Albuterol Sulfate (Albuterol Sulfate (0.083%) 2.5 Mg/3 Ml Vial.Neb) 2.5 mg INHALE Q6H PRN PRN Reason: Wheezing Albuterol/Ipratropium (Albuterol/Iprat 2.5/0.5mg 3 Ml Ampul.Neb) 3 ml INHALE TID COUNTS INCLUDE 234 BEDS AT THE [facility] Last Admin: 11/26/22 16:11 Dose: 3 ml Carvedilol (Carvedilol 3.125 Mg Tablet) 3.125 mg PO BID COUNTS INCLUDE 234 BEDS AT THE [facility]; Protocol Last Admin: 11/26/22 15:26 Dose: Not Given Clopidogrel Bisulfate (Clopidogrel Bisulfate 75 Mg Tablet) 75 mg PO DAILY COUNTS INCLUDE 234 BEDS AT THE [facility] Dextrose (Dextrose 50 % 25 Gm/50 Ml Syringe) 25 gm IVPUSH Q15M PRN; Protocol PRN Reason: per Hypoglycemia Standing Ord. Last Admin: 11/26/22 10:25 Dose: 25 gm Enoxaparin Sodium (Enoxaparin Sodium 40 Mg/0.4 Ml Syringe) 40 mg SUBCUT Q24H COUNTS INCLUDE 234 BEDS AT THE [facility] Last Admin: 11/26/22 02:49 Dose: 40 mg Furosemide (Furosemide 40 Mg Tablet) 40 mg PO BID COUNTS INCLUDE 234 BEDS AT THE [facility]; Protocol Last Admin: 11/26/22 10:22 Dose: Not Given Glucose (Glucose Gel 15 Gm Gel..Gram.) 15 gm PO Q15M PRN; Protocol PRN Reason: per Hypoglycemia Standing Ord. Insulin Human Lispro (Insulin Lispro 100 Unit/Ml 3 Ml Vial) 0 unit SUBCUT QIDACHS COUNTS INCLUDE 234 BEDS AT THE [facility]; Protocol Last Admin: 11/26/22 17:24 Dose: 1 unit Morphine Sulfate (Morphine Sulfate 4 Mg/Ml Cartridge) 2 mg IVPUSH Q4H PRN; Protocol PRN Reason: Pain, Severe (Pain Scale 7-10) Last Admin: 11/26/22 17:33 Dose: 2 mg Nicotine (Nicotine 21 Mg Patch.Td24) 21 mg TRANSDERMA DAILY COUNTS INCLUDE 234 BEDS AT THE [facility] Non-Formulary Medication (Umeclidinium [Incruse Ellipta]) 1 puff PO DAILY M[facility]NICA Ondansetron HCl (Ondansetron Hcl 4 Mg/2 Ml Vial) 4 mg IVPUSH Q8H PRN PRN Reason: Nausea and Vomiting Polyethylene Glycol (Polyethylene Glycol 3350 17 Gm Powd.Pack) 17 gm PO DAILY PRN PRN Reason: Constipation Sodium Chloride (0.9 % Sodium Chloride Flush 3 Ml Syringe) 3 ml IVFLUSH QSHIFT COUNTS INCLUDE 234 BEDS AT THE [facility] Last Admin: 11/26/22 15:36 Dose: 3 ml Home Medications Medication Instructions Recorded Confirmed Last Taken Type clopidogrel 75 mg tablet 75 mg PO DAILY 11/24/22 11/26/22 Unknown History glipizide 5 mg-metformin 500 mg 2 tab PO BID 11/24/22 11/26/22 Unknown History tablet morphine 15 mg tablet,extended 15 mg PO Q12H PAIN 11/26/22 11/26/22 Unknown History release nicotine 21 mg/24 hr daily 1 patch topical DAILY 11/26/22 11/26/22 Unknown History transdermal patch Physical Exam Vital Signs: Vital Signs: Last Vital Signs Temp 98 F 11/26/22 15:40 Pulse 100 11/26/22 16:14 Resp 16 11/26/22 16:14 BP 120/75 11/26/22 15:40 Pulse Ox 97 11/26/22 15:40 O2 Del Method Room Air 11/26/22 15:40 BMI result Body Mass Index 30.1 GI: Other: abdo exam is soft tender in right upper area but distractable, no peritoneal signs active bowel sounds Skin: Other: pt is jaundiced as per skin and eyes left bka with open area on stump - stump area is cool and erythematous Results Labs 11/26/22 03:01 11/26/22 05:58 Labs: Abnormal lab results 11/25/22 11/25/22 11/25/22 Range/Units 19:10 19:10 19:10 RBC 5.55 H (4.20-5.50) X10*6/uL Hgb 10.6 L (12.0-16.0) g/dl Hct (37.0-47.0) % MCV 68.5 L (80.0-98.0) fL MCH 19.1 L (27.0-33.0) pg MCHC 27.9 L (31.0-35.0) g/dl RDW 21.9 H (11.0-16.0) % Immature Gran % (Auto) (0.0-0.4) % Neut % (Auto) 73.4 H (45-73) % Lymph % (Auto) 17.0 L (20-40) % Abs Immat Gran (auto) (0.00-0.03) X10*3/uL Absolute Nucleated RBC 0.090 H (0.0-0.012) X10*3/uL Nucleated RBC % (auto) 1.1 H (0.0-0.2) /100WBC Sodium (135-145) mmol/L Potassium (3.3-5.1) mmol/L Carbon Dioxide (22-29) mmol/L BUN 25 H (9-16) mg/dL Creatinine (0.5-1.4) mg/dL POC Glucose (60-115) mg/dL Random Glucose 153 H (60-115) mg/dL Lactic Acid 3.0 H* (0.5-2.0) mmol/L Lactic Acid F/U @ 2Hr (0.5-2.0) mmol/L Lactic Acid F/U @ 4Hr (0.5-2.0) mmol/L Total Bilirubin 3.1 H (0.0-1.0) mg/dL Direct Bilirubin 1.5 H (0.0-0.5) mg/dL AST 270 H (5-31) U/L ALT 291 H (0-31) U/L C-Reactive Protein 3.11 H (< or = 0.50) mg/dL Total Protein 6.4 L (6.5-8.0) g/dL Albumin (3.5-5.0) g/dL 11/25/22 11/26/22 11/26/22 Range/Units 21:29 00:29 03:01 RBC (4.20-5.50) X10*6/uL Hgb (12.0-16.0) g/dl Hct (37.0-47.0) % MCV (80.0-98.0) fL MCH (27.0-33.0) pg MCHC (31.0-35.0) g/dl RDW (11.0-16.0) % Immature Gran % (Auto) (0.0-0.4) % Neut % (Auto) (45-73) % Lymph % (Auto) (20-40) % Abs Immat Gran (auto) (0.00-0.03) X10*3/uL Absolute Nucleated RBC (0.0-0.012) X10*3/uL Nucleated RBC % (auto) (0.0-0.2) /100WBC Sodium 134 L (135-145) mmol/L Potassium 5.7 H (3.3-5.1) mmol/L Carbon Dioxide 17 L (22-29) mmol/L BUN 28 H (9-16) mg/dL Creatinine 1.42 H (0.5-1.4) mg/dL POC Glucose (60-115) mg/dL Random Glucose 117 H (60-115) mg/dL Lactic Acid (0.5-2.0) mmol/L Lactic Acid F/U @ 2Hr 2.6 H* (0.5-2.0) mmol/L Lactic Acid F/U @ 4Hr 2.6 H* (0.5-2.0) mmol/L Total Bilirubin 3.2 H (0.0-1.0) mg/dL Direct Bilirubin (0.0-0.5) mg/dL AST 248 H (5-31) U/L ALT 305 H (0-31) U/L C-Reactive Protein (< or = 0.50) mg/dL Total Protein 6.3 L (6.5-8.0) g/dL Albumin 3.3 L (3.5-5.0) g/dL 11/26/22 11/26/22 11/26/22 Range/Units 03:01 05:58 13:11 RBC (4.20-5.50) X10*6/uL Hgb 10.5 L (12.0-16.0) g/dl Hct 36.6 L (37.0-47.0) % MCV 68.0 L (80.0-98.0) fL MCH 19.5 L (27.0-33.0) pg MCHC 28.7 L (31.0-35.0) g/dl RDW 21.9 H (11.0-16.0) % Immature Gran % (Auto) 0.5 H (0.0-0.4) % Neut % (Auto) (45-73) % Lymph % (Auto) (20-40) % Abs Immat Gran (auto) 0.04 H (0.00-0.03) X10*3/uL Absolute Nucleated RBC 0.100 H (0.0-0.012) X10*3/uL Nucleated RBC % (auto) 1.2 H (0.0-0.2) /100WBC Sodium (135-145) mmol/L Potassium (3.3-5.1) mmol/L Carbon Dioxide (22-29) mmol/L BUN 28 H (9-16) mg/dL Creatinine (0.5-1.4) mg/dL POC Glucose 133 H (60-115) mg/dL Random Glucose (60-115) mg/dL Lactic Acid (0.5-2.0) mmol/L Lactic Acid F/U @ 2Hr (0.5-2.0) mmol/L Lactic Acid F/U @ 4Hr (0.5-2.0) mmol/L Total Bilirubin (0.0-1.0) mg/dL Direct Bilirubin (0.0-0.5) mg/dL AST (5-31) U/L ALT (0-31) U/L C-Reactive Protein (< or = 0.50) mg/dL Total Protein (6.5-8.0) g/dL Albumin (3.5-5.0) g/dL 11/26/22 Range/Units 16:16 RBC (4.20-5.50) X10*6/uL Hgb (12.0-16.0) g/dl Hct (37.0-47.0) % MCV (80.0-98.0) fL MCH (27.0-33.0) pg MCHC (31.0-35.0) g/dl RDW (11.0-16.0) % Immature Gran % (Auto) (0.0-0.4) % Neut % (Auto) (45-73) % Lymph % (Auto) (20-40) % Abs Immat Gran (auto) (0.00-0.03) X10*3/uL Absolute Nucleated RBC (0.0-0.012) X10*3/uL Nucleated RBC % (auto) (0.0-0.2) /100WBC Sodium (135-145) mmol/L Potassium (3.3-5.1) mmol/L Carbon Dioxide (22-29) mmol/L BUN (9-16) mg/dL Creatinine (0.5-1.4) mg/dL POC Glucose 153 H (60-115) mg/dL Random Glucose (60-115) mg/dL Lactic Acid (0.5-2.0) mmol/L Lactic Acid F/U @ 2Hr (0.5-2.0) mmol/L Lactic Acid F/U @ 4Hr (0.5-2.0) mmol/L Total Bilirubin (0.0-1.0) mg/dL Direct Bilirubin (0.0-0.5) mg/dL AST (5-31) U/L ALT (0-31) U/L C-Reactive Protein (< or = 0.50) mg/dL Total Protein (6.5-8.0) g/dL Albumin (3.5-5.0) g/dL Short CBC 11/25/22 11/26/22 Range/Units 19:10 03:01 WBC 8.5 8.4 (4.8-10.8) X10*3/uL Hgb 10.6 L 10.5 L (12.0-16.0) g/dl Hct 38.0 36.6 L (37.0-47.0) % Plt Count 207 205 (160-400) X10*3/uL BMP 11/25/22 11/26/22 11/26/22 19:10 03:01 05:58 Sodium 135 134 L 135 Potassium 5.1 5.7 H 5.1 Chloride 101 103 104 Carbon Dioxide 22 17 L 22 BUN 25 H 28 H 28 H Creatinine 1.22 1.42 H 1.38 Calcium 9.5 9.2 9.0 Liver Function 11/25/22 11/26/22 Range/Units 19:10 03:01 Total Bilirubin 3.1 H 3.2 H (0.0-1.0) mg/dL Direct Bilirubin 1.5 H (0.0-0.5) mg/dL AST 270 H 248 H (5-31) U/L ALT 291 H 305 H (0-31) U/L Alkaline Phosphatase 97 88 (39-117) U/L Albumin 3.6 3.3 L (3.5-5.0) g/dL All other labs normal. Imaging Abdomen CT scan report/results: report reviewed and image reviewed CT scan - pelvis: report reviewed and image reviewed Abdominal ultrasound report/results: report reviewed Assessment and Plan (1) Transaminitis: Status: Acute ?etiology for this - doubt acute cholecystitis - cinically doesnt seem to be this and also the HIDA scan shows GB filling not emptying so makes it seem more like CBD obstruction. Agree with MRCP and GI consult follow labs clinically pt symptomatic from elevated bilirubin (2) Type 2 diabetes mellitus with foot ulcer: Status: Acute Plan pt with diabetic foot wound =- ? worse vascular component - she has not been reliable with office visits in wound care. suggest alginate dressing to open foot wounds and increase protein intake and tight glucose control Time Spent With Patient Time: Total time managing care of this patient today ____ minutes. Procedures Date of Service Date of Service: 11/26/22
[2022-11-26 20:25] LABS: Glucose, Whole Blood 153 mg/dL (60-115)
[2022-11-26] MEDS: Furosemide 40 MG TABLET PO (20:32)
[2022-11-26] MEDS: carvediloL 3.125 MG TABLET PO (20:32)
--- NOTE | 2022-11-26 20:41 | PC.NURSE ---
drsg to left stump changed as ordered
[2022-11-27] MEDS: 0.9 % Sodium Chloride Flush 3 ML SYRINGE IVFLUSH ×2 (00:20→07:58)
[2022-11-27] MEDS: Enoxaparin Sodium 40 MG/0.4 ML SYRINGE SUBCUT (02:34)
[2022-11-27] MEDS: Morphine Sulfate 4 MG/ML CARTRIDGE 2 MG IVPUSH ×3 (02:35→11:29)
[2022-11-27 03:34] VITALS: BP 114/76; PULSE 98; RESP 18; TEMP 36.5; O2SAT 96
[2022-11-27 06:11] LABS: Alanine Aminotransferase 460 U/L (0-31); Albumin Level 2.8 g/dL (3.5-5.0); Alkaline Phosphatase 73 U/L (39-117); Aspartate Amino Transferase 286 U/L (5-31); Bilirubin Direct 1.2 mg/dL (0.0-0.5); Bilirubin Total 2.4 mg/dL (0.0-1.0)
[2022-11-27 07:13] VITALS: BP 126/71; PULSE 88; RESP 18; TEMP 36.3; O2SAT 92
[2022-11-27 07:54] LABS: Glucose, Whole Blood 88 mg/dL (60-115)
[2022-11-27] MEDS: carvediloL 3.125 MG TABLET PO (07:54)
[2022-11-27] MEDS: Furosemide 40 MG TABLET PO (07:54)
[2022-11-27 08:23] LABS: Anion Gap 17 (12-20); Blood Urea Nitrogen 31 mg/dL (9-16); Calcium 8.4 mg/dL (8.4-10.2); Carbon Dioxide 17 mmol/L (22-29); Chloride 107 mmol/L (96-108); Creatinine Clr Calc Pharmacy 47.3; Estimated Glomerular Filt Rate 40; Glucose Random 75 mg/dL (60-115); Potassium 5.3 mmol/L (3.3-5.1); Sodium 136 mmol/L (135-145)
[2022-11-27] MEDS: Albuterol/Iprat 2.5/0.5MG 3 ML AMPUL.NEB INHALE (08:25)
[2022-11-27 08:26] VITALS: PULSE 100; RESP 16; O2SAT 97
[2022-11-27 09:06] LABS: Hematocrit 32.9 % (37.0-47.0); Hemoglobin 9.4 g/dl (12.0-16.0); Mean Corpuscular HGB Conc 28.6 g/dl (31.0-35.0); Mean Corpuscular Hemoglobin 19.3 pg (27.0-33.0); Mean Corpuscular Volume 67.7 fL (80.0-98.0); Red Blood Count 4.86 X10*6/uL (4.20-5.50); Red Cell Distribution Width 21.4 % (11.0-16.0); White Blood Count 7.6 X10*3/uL (4.8-10.8)
[2022-11-27 09:12] LABS: NRBC Pct Auto 1.2 /100WBC (0.0-0.2)
--- NOTE | 2022-11-27 09:31 | PM.GICN ---
History of Present Illness Data of Consult Service Date: 11/27/22 Requesting physician: Stepahnie Flores Primary Care Provider: Unknown Physician HPI Reason for consult: elevated LFTs, biliary obstruction 52 YF with CHF, CAD status post NSTEMI,? left below-knee amputation, COPD, diabetes, HTN, ischemic cardiomyopathy, peripheral artery disease, [place] [facility] [place]25[place]22 with abdominal pain, nausea vomiting.? Patient is oriented to self and place, but acting very strange.? Pt complained of generalized itching, reported that she was having a reaction to something that she received when she was seen in the hospital the day before for chronic pain, was given 15 mg of oxycodone x2, Patient reported that this a high-dose for her, and she felt strange as a result. ? Pt reports intermittent epigastric/RUQ pain, nausea and vomiting for the past week. She describes the pain as pressure like, 10/10 in intensity and gets worse with eating. Pt complains of decreased appetite and has not been eating due to fear of abdominal pain. She denies any fever, chills, sweating, chest pain, shortness of breath, orthopnea or PND. Pt states pain has improved today and she ate last night without noting any abdominal pain. Pt denies ETOH and admits to smoking 1/2 pack of cigarettes per week (decreased from 3 PPD daily) Pt is single and has 6 children. 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 Pt denies known family history of gallstones, liver disease, colon polyps or colon cancer. Pt has a hx of non-compliance and signing out AMA during her previous admissions On arrival to the ED patient hemodynamically stable with no significant abnormal vitals Labs are significant for WBC? count of 8.5, hemoglobin of 10.6, hematocrit 38, all within her baseline, BUN of 25, creatinine of 1.22 with a baseline, normal sodium potassium, lactic acid of 3 total bili of 3.1, direct bili of 1.5, AST of 270, ALT of 291 which are higher than the readings from day prior, alk-phos of 97, CRP of 3.1, hepatitis panel pending. ?11/25/22 ABD US SHOWED: Limited examination secondary to body habitus, shadowing from overlying bowel gas and motion. 1.? Nonspecific gallbladder wall thickening. This could be seen in the setting of third spacing of fluids in the setting of hepatocellular disease and volume overload. 2.? Hepatosplenomegaly. 3.? Trace perihepatic ascites. 4.? Partially imaged left-sided pleural effusion.Abdominal pelvic CT? showed hepatosplenomegaly, abnormal heterogeneously attenuation of the liver nonspecific and could be seen with acute hepatitis Very subtle equivocal punctate gallbladder calculus with minimal layering, hyperdense bile sludge.? Diffuse gallbladder wall thickening with edema is nonspecific.? No significant pericholecystic fat stranding or free fluid.? Bilateral pleural effusion, anasarca on small volume of ascites, 11/26/[address] SCAN SHOWED: Hepatosplenomegaly. Abnormal heterogeneously attenuation of the liver, nonspecific could be seen with acute hepatitis or other forms of hepatocellular disease. Recommend correlation with liver function tests. ?Very subtle equivocal punctate gallbladder calculus with minimal layering hyperdense bile/sludge. Diffuse gallbladder wall thickening with edema is nonspecific in the setting of volume overload and hepatocellular disease. No significant pericholecystic fat stranding or free fluid. Bilateral pleural effusions, anasarca and small volume of ascites suggesting third spacing. Nonspecific fatty haziness centered around the celiac axis/root of the mesentery and around the left adrenal gland, stable compared to 10/15/2022. Hyperemia of the gastric wall and proximal duodenum, correlate clinically for peptic ulcer disease, gastritis and duodenitis. 11/26/22 HIDA SCAN SHOWED: Nonvisualization of small bowel up to 100 minutes. This could be secondary to acute CBD obstruction. ? There is no gallbladder contraction or emptying at 30 minutes.. This could be secondary to cystic duct or common bile duct obstruction. Recommend correlation with ERCP. There is no CBD dilation on CT 11/26/2022 ? Normal liver uptake with no focal defect Review of Systems Review of Systems: Yes all other systems are reviewed and are negative [facility] Past Medical History Medical History Asthma Atherosclerotic cardiovascular disease Atrial tachycardia Below-knee amputation of left lower extremity Cellulitis in diabetic foot COPD (chronic obstructive pulmonary disease) Coronary artery disease COVID-19 vaccine series completed Diabetes Diabetic foot infection Diabetic foot infection Diabetic foot ulcer Diabetic toe ulcer Essential hypertension GERD (gastroesophageal reflux disease) Hyperglycemia due to diabetes mellitus Hypertension Ischemic cardiomyopathy Left against medical advice Left against medical advice Osteomyelitis Osteomyelitis 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 PAD (peripheral artery disease) Family History Family History Mother Hx of CABG Sister CAD (coronary artery disease) Surgical History Surgical History History of esophagogastroduodenoscopy (EGD) History of toe surgery (09/22/21) Status post below-knee amputation of left lower extremity (09/20/22) Social History Social History Household Members: Significant Other and Children Housing: Apartment Do you presently have visiting nurse or other home services: Yes Unable to assess alcohol history related to: Refusing to respond Alcohol intake: never Patient Tobacco Use Status: Tobacco use Unknown Tobacco use type: Cigarette Cigarette Packs Per Day: 0.5 Cigarettes Per Day: 6 Years Smoked: 43 e-Cigarette/Vaping Use: Currently Using Second Hand Smoke Exposure: Yes 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 Advance Directives Date on File: 09/22/22 service: No Current occupational status: disabled Meds Allergies Allergy/AdvReac Type Severity Reaction Status Date / Time Penicillins [PENICILLINS] Allergy Severe RASH Verified 12/22/22 11:16 amoxicillin [AMOXICILLIN] Allergy Intermediate HIVES Verified 12/22/22 11:16 perflutren [From Definity] AdvReac Back Pain Verified 12/22/22 11:16 Active Medications: Current Medications Acetaminophen (Acetaminophen 325 Mg Tablet) 650 mg PO Q6H PRN PRN Reason: Pain, Mild (Pain Scale 1-3) Albuterol Sulfate (Albuterol Sulfate (0.083%) 2.5 Mg/3 Ml Vial.Neb) 2.5 mg INHALE Q6H PRN PRN Reason: Wheezing Albuterol/Ipratropium (Albuterol/Iprat 2.5/0.5mg 3 Ml Ampul.Neb) 3 ml INHALE TID [facility]END[facility] TO [facility] Last Admin: 11/27/22 08:25 Dose: 3 ml Carvedilol (Carvedilol 3.125 Mg Tablet) 3.125 mg PO BID [facility]; Protocol Last Admin: 11/27/22 07:54 Dose: 3.125 mg Clopidogrel Bisulfate (Clopidogrel Bisulfate 75 Mg Tablet) 75 mg PO DAILY [facility] Dextrose (Dextrose 50 % 25 Gm/50 Ml Syringe) 25 gm IVPUSH Q15M PRN; Protocol PRN Reason: per Hypoglycemia Standing Ord. Last Admin: 11/26/22 10:25 Dose: 25 gm Enoxaparin Sodium (Enoxaparin Sodium 40 Mg/0.4 Ml Syringe) 40 mg SUBCUT Q24H [facility] Last Admin: 11/27/22 02:34 Dose: 40 mg Furosemide (Furosemide 40 Mg Tablet) 40 mg PO BID [facility]; Protocol Last Admin: 11/27/22 07:54 Dose: 40 mg Glucose (Glucose Gel 15 Gm Gel..Gram.) 15 gm PO Q15M PRN; Protocol PRN Reason: per Hypoglycemia Standing Ord. Insulin Human Lispro (Insulin Lispro 100 Unit/Ml 3 Ml Vial) 0 unit SUBCUT QIDACHS [facility]; Protocol Last Admin: 11/27/22 07:39 Dose: Not Given Morphine Sulfate (Morphine Sulfate 4 Mg/Ml Cartridge) 2 mg IVPUSH Q4H PRN; Protocol PRN Reason: Pain, Severe (Pain Scale 7-10) Last Admin: 11/27/22 07:54 Dose: 2 mg Nicotine (Nicotine 21 Mg Patch.Td24) 21 mg TRANSDERMA DAILY [facility] Last Admin: 11/27/22 07:58 Dose: Not Given Non-Formulary Medication (Umeclidinium [Incruse Ellipta]) 1 puff PO DAILY [facility] Ondansetron HCl (Ondansetron Hcl 4 Mg/2 Ml Vial) 4 mg IVPUSH Q8H PRN PRN Reason: Nausea and Vomiting Polyethylene Glycol (Polyethylene Glycol 3350 17 Gm Powd.Pack) 17 gm PO DAILY PRN PRN Reason: Constipation Sodium Chloride (0.9 % Sodium Chloride Flush 3 Ml Syringe) 3 ml IVFLUSH QSHIFT [facility] Last Admin: 11/27/22 07:58 Dose: 3 ml Home Medications Medication Instructions Recorded Confirmed Last Taken Type clopidogrel 75 mg tablet 75 mg PO DAILY 11/24/22 12/22/22 Unknown History glipizide 5 mg-metformin 500 mg 2 tab PO BID 11/24/22 12/22/22 Unknown History tablet nicotine 21 mg/24 hr daily 1 patch topical DAILY 11/26/22 12/22/22 Unknown History transdermal patch aspirin 81 mg tablet,delayed 81 mg PO DAILY 12/01/22 12/22/22 Unknown History release gabapentin 300 mg capsule 600 mg PO BID 12/06/22 12/22/22 Unknown History montelukast 10 mg tablet 10 mg PO BEDTIME 12/06/22 12/22/22 Unknown History Physical Exam Vital Signs: Vital Signs: Last Vital Signs Temp 97.4 F 11/27/22 07:13 Pulse 100 11/27/22 08:26 Resp 16 11/27/22 08:26 BP 126/71 11/27/22 07:13 Pulse Ox 92 11/27/22 07:13 O2 Del Method Room Air 11/27/22 07:13 BMI result Body Mass Index 30.1 Const: General: no acute distress and ill appearing Nutritional Appearance: obese Orientation/consciousness: patient oriented x3 Limitations: other limitations (status post left BKA) HEENT: Head: Yes normal to inspection Ears: hearing grossly normal bilaterally Mouth: Normal oral and palatal mucosa present Eyes: Sclerae: sclerae normal Pupils: Equal, round and reactive pupils present Neck: Neck: Yes normal visual inspection Chest: Chest palpation & inspection: normal inspection of the chest Resp: Effort & Inspection: normal respiratory effort Auscultation: clear to auscultation bilaterally Cardio: Palpation: normal PMI Rate: regular rate Rhythm: regular rhythm Heart sounds: S1 normal heart sound present, S2 normal heart sound present and no murmurs GI: Palpation (GI): Soft to palpation, nontender and No hepatosplenomegaly present Auscultation: normal bowel sounds Rectal Exam - Female: deferred Skin: General skin exam: no rashes or lesions noted Neuro: General: patient oriented x3, gait normal and moves all extremities Cranial nerves: Yes Equal, round and reactive pupils present Extrem: General: Yes pedal edema (rt lower extremity) and Yes other (status post left BKA) Psych: Appearance: grossly normal Mental Status: mental status grossly normal Results Labs 11/26/22 03:01 11/27/22 07:58 Labs: BMP 11/27/22 07:58 Sodium 136 Potassium 5.3 H Chloride 107 Carbon Dioxide 17 L BUN 31 H Creatinine 1.38 Calcium 8.4 D Liver Function 11/27/22 Range/Units 05:41 Total Bilirubin 2.4 H (0.0-1.0) mg/dL Direct Bilirubin 1.2 H (0.0-0.5) mg/dL AST 286 H (5-31) U/L ALT 460 H (0-31) U/L Alkaline Phosphatase 73 (39-117) U/L Albumin 2.8 L (3.5-5.0) g/dL Microbiology Microbiology Results: Microbiology 11/25/22 19:36 Blood - Venous Blood Culture - Preliminary No growth after 24 hours. 11/25/22 19:10 Blood - Venous Blood Culture - Preliminary No growth after 24 hours. Assessment and Plan (1) Transaminitis: Status: Acute (2) Abnormal CT of the abdomen: Status: Acute Plan 52 YF with CHF, CAD status post NSTEMI,? left below-knee amputation, COPD, diabetes, HTN, ischemic cardiomyopathy, peripheral artery disease, admitted [place] [facility] [place] abdominal pain, nausea vomiting.? Pt has a hx of non-compliance and signing out AMA during her previous admissions On arrival to the ED patient hemodynamically stable with no significant abnormal vitals Labs are significant for WBC? count of 8.5, hemoglobin of 10.6, hematocrit 38, all within her baseline, BUN of 25, creatinine of 1.22 with a baseline, normal sodium potassium, lactic acid of 3 total bili of 3.1, direct bili of 1.5, AST of 270, ALT of 291 which are higher than the readings from day prior, alk-phos of 97, CRP of 3.1, hepatitis panel pending. Abd US showed nonspecific gallbladder wall thickening, Hepatosplenomegaly and trace perihepatic ascites. Abdominal pelvic CT? showed hepatosplenomegaly, abnormal heterogeneously attenuation of the liver nonspecific and could be seen with acute hepatitis Very subtle equivocal punctate gallbladder calculus with minimal layering, hyperdense bile sludge.? Diffuse gallbladder wall thickening with edema is nonspecific.? No significant pericholecystic fat stranding or free fluid.? Pt has hepatospleomegaly and intermittent elevation of LFTs in the past suggestive underlying cirrhosis due to DONOHUE/congestive hepatopathy associated with CHF. Abdominal pain with worsening transaminases are likely due to transient biliary obstruction due to stones/sludge. Pt had an MRCP earlier today and results are pending RECOMMENDATIONS: 1. Agree with IV fluids and pain medications 2. Monitor LFTs daily 3. Await MRCP and hepatitis serology results ADDENDUM: 11/27/22 MRCP SHOWED: 1.? No intra or extrahepatic biliary duct dilatation. MRCP sequences are significantly motion degraded however there is no appreciable intraluminal filling defect appreciated in the standard T2-weighted sequences to favor choledocholithiasis. 2.? Stones and sludge within the gallbladder. There is small volume of pericholecystic free fluid however given a background of small volume ascites this finding is nonspecific. Gallbladder is not significantly distended to favor acute cholecystitis, however recommend correlation with clinical symptoms. 3.? Hepatosplenomegaly. Unfortunately, the patient decided to leave against medical advice prior to completing treatment.? She was noted to be alert and oriented x3.? She was advised that her wound can get worse, she could develop blood infection and even .? She was aware of all this and still decided to leave against medical advice. Time Spent With Patient Time: Total time managing care of this patient today ____ minutes. Procedures Date of Service Date of Service: 12/22/22
[2022-11-27 09:41] LABS: Platelet Count 149 X10*3/uL (160-400)
--- NOTE | 2022-11-27 10:21 | P.PNIM_ITS ---
Subjective Subjective Date of Service: 11/27/22 Interval History: seen and examined this morning follow up for abdominal pain, elevated LFTs still reporting abdominal pain, but primarily lower abdomen Review of Systems Review of Systems: Yes all other systems are reviewed and are negative Constitutional Constitutional: Denies chills and Denies fever(s) Cardiovascular Cardiovascular: Denies chest pain, Denies palpitations and Denies dyspnea Respiratory Respiratory: Denies cough and Denies dyspnea Gastrointestinal Gastrointestinal: Reports abdominal pain, Denies nausea and Denies vomiting Endocrine Endocrine: Denies palpitations Physical Exam Vital Signs: Vital Signs: Last Vital Signs Temp 97.4 F 11/27/22 07:13 Pulse 100 11/27/22 08:26 Resp 16 11/27/22 08:26 BP 126/71 11/27/22 07:13 Pulse Ox 92 11/27/22 07:13 O2 Del Method Room Air 11/27/22 07:13 BMI result Body Mass Index 30.1 Const: Other: sleepy, easily arousable General: cooperative and no acute distress Nutritional Appearance: overweight Resp: Other: scattered expiratory wheezes Effort & Inspection: normal respiratory effort, able to speak in complete sentences, no respiratory distress and no use of accessory muscles Cardio: Rate: regular rate Heart sounds: S1 normal heart sound present and S2 normal heart sound present GI: Other: tenderness primarily lower abdomen Inspection: No distended Palpation (GI): Soft to palpation Neuro: General: CN's II-XI intact bilaterally Extrem: Other: s/p left AKA; open area on stump no drainage; right leg with 1-2+ edema Objective Data Active Medications Acetaminophen (Acetaminophen 325 Mg Tablet) 650 mg PO Q6H PRN PRN Reason: Pain, Mild (Pain Scale 1-3) Albuterol Sulfate (Albuterol Sulfate (0.083%) 2.5 Mg/3 Ml Vial.Neb) 2.5 mg INHALE Q6H PRN PRN Reason: Wheezing Albuterol/Ipratropium (Albuterol/Iprat 2.5/0.5mg 3 Ml Ampul.Neb) 3 ml INHALE TID [facility] Last Admin: 11/27/22 08:25 Dose: 3 ml Documented By: EMILIE Carvedilol (Carvedilol 3.125 Mg Tablet) 3.125 mg PO BID [facility]; Protocol Last Admin: 11/27/22 07:54 Dose: 3.125 mg Documented By: LIMA Clopidogrel Bisulfate (Clopidogrel Bisulfate 75 Mg Tablet) 75 mg PO DAILY [facility] Dextrose (Dextrose 50 % 25 Gm/50 Ml Syringe) 25 gm IVPUSH Q15M PRN; Protocol PRN Reason: per Hypoglycemia Standing Ord. Last Admin: 11/26/22 10:25 Dose: 25 gm Documented By: NEVIN Enoxaparin Sodium (Enoxaparin Sodium 40 Mg/0.4 Ml Syringe) 40 mg SUBCUT Q24H [facility] Last Admin: 11/27/22 02:34 Dose: 40 mg Documented By: TWIN Furosemide (Furosemide 40 Mg Tablet) 40 mg PO BID [facility]; Protocol Last Admin: 11/27/22 07:54 Dose: 40 mg Documented By: LIMA Glucose (Glucose Gel 15 Gm Gel..Gram.) 15 gm PO Q15M PRN; Protocol PRN Reason: per Hypoglycemia Standing Ord. Insulin Human Lispro (Insulin Lispro 100 Unit/Ml 3 Ml Vial) 0 unit SUBCUT QIDACHS [facility]; Protocol Last Admin: 11/27/22 07:39 Dose: Not Given Documented By: LIMA Non-Admin Reason: No Insulin Coverage Morphine Sulfate (Morphine Sulfate 4 Mg/Ml Cartridge) 2 mg IVPUSH Q4H PRN; Protocol PRN Reason: Pain, Severe (Pain Scale 7-10) Last Admin: 11/27/22 07:54 Dose: 2 mg Documented By: LIMA Nicotine (Nicotine 21 Mg Patch.Td24) 21 mg TRANSDERMA DAILY [facility] Last Admin: 11/27/22 07:58 Dose: Not Given Documented By: LIMA Non-Admin Reason: Patient Refused Non-Formulary Medication (Umeclidinium [Incruse Ellipta]) 1 puff PO DAILY [facility] Ondansetron HCl (Ondansetron Hcl 4 Mg/2 Ml Vial) 4 mg IVPUSH Q8H PRN PRN Reason: Nausea and Vomiting Polyethylene Glycol (Polyethylene Glycol 3350 17 Gm Powd.Pack) 17 gm PO DAILY PRN PRN Reason: Constipation Sodium Chloride (0.9 % Sodium Chloride Flush 3 Ml Syringe) 3 ml IVFLUSH QSHIFT [facility] Last Admin: 11/27/22 07:58 Dose: 3 ml Documented By: LIMA Labs 11/27/22 08:44 11/27/22 07:58 Labs: Laboratory Results - last 24 hr 11/26/22 11/26/22 11/26/22 13:11 16:16 20:20 MCV MCH MCHC RDW Plt Count MPV Absolute Nucleated RBC Nucleated RBC % (auto) Anion Gap Estim Creat Clear Calc Estimated GFR POC Glucose 133 H 153 H 153 H Random Glucose Calcium Total Bilirubin Direct Bilirubin AST ALT Alkaline Phosphatase Total Protein Albumin 11/27/22 11/27/22 11/27/22 05:41 07:18 07:58 MCV MCH MCHC RDW Plt Count MPV Absolute Nucleated RBC Nucleated RBC % (auto) Anion Gap 17 Estim Creat Clear Calc 47.3 Estimated GFR 40 POC Glucose 88 Random Glucose 75 Calcium 8.4 D Total Bilirubin 2.4 H Direct Bilirubin 1.2 H AST 286 H ALT 460 H Alkaline Phosphatase 73 Total Protein 5.0 L Albumin 2.8 L 11/27/22 08:44 MCV 67.7 L MCH 19.3 L MCHC 28.6 L RDW 21.4 H Plt Count 149 L D MPV Not Reportable Absolute Nucleated RBC 0.090 H Nucleated RBC % (auto) 1.2 H Anion Gap Estim Creat Clear Calc Estimated GFR POC Glucose Random Glucose Calcium Total Bilirubin Direct Bilirubin AST ALT Alkaline Phosphatase Total Protein Albumin Microbiology Microbiology Results: Microbiology 11/25/22 19:36 Blood Culture - Preliminary Blood - Venous No growth after 24 hours. 11/25/22 19:10 Blood Culture - Preliminary Blood - Venous No growth after 24 hours. Assessment and Plan (1) Transaminitis: Status: Acute Plan 52-year-old female with past medical history of CAD, PAD, DM, COPD/asthma, HTN, HLD left BKA 09/20/2022, presents the hospital with abdominal pain nausea vomiting found to have acute transaminitis. patient does not know any of her medical issues, insists that she has no heart disease and is unsure what medications she takes at baseline. abdominal pain/transaminitis ultrasound of the abdomen showed limited exam but nonspecific gallbladder wall thickening HIDA scan Could be secondary to CBD obstruction hepatitis profile, autoimmune markers pending seen by surgery, did not feel this is acute cholecystitis GI consult pending MRCP pending - management based on results hold statin trend LFTs Chronic HFrEF continue Coreg, Lasix CAD STEMI status post drug-eluting stent to the proximal LAD in August 2022 with isc hemic cardiomyopathy and ejection fraction of 20% continue Coreg statin on hold for transaminitis continue plavix h/o PE dx RLL subsegmental PE [place] [facility] [place] - no AC on med list pharmacy documentation states she is no longer taking, reason unclear patient thinks she may be taking a blood thinner but is not sure concern for possible ERCP, will hold Eliquis for now but likely resume if no surgical intervention planned diabetes hold oral antihyperglycemics previously on Lantus, discontinued on previous admission in september due to hypoglycemia continue SSI COPD not in exacerbation continue home inhalers hypertension stable continue antihypertensives b/l leg wounds continue wound care DVT prophylaxis: Korin attending - dr. Stark requires ongoing inpatient hospitalization for evaluation of elevated LFTs, MRCP, GI evaluation Time Spent With Patient Time: Total time managing care of this patient today ____ minutes. Quality Stroke Does the patient have a stroke diagnosis?: No VTE Prior VTE?: No VTE Risk Level:: Medical - moderate - high VTE Device Contraindication: Treatment Not Indicated VTE Drug Contraindication: N/A - Med Ordered
[2022-11-27 11:29] LABS: Glucose, Whole Blood 57 mg/dL (60-115)
[2022-11-27] MEDS: Dextrose 50 % 25 GM/50 ML SYRINGE IVPUSH (11:29)
--- NOTE | 2022-11-27 11:30 | MHC.CM.PN ---
PT REPORTS SHE LIVES WITH HER S/O AND ADULT CHILDREN SHE SAYS SHE HAS RESOURCE TECHNICIAN'S THAT COME TWICE DAILY AND IS ACTIVE WITH [facility] PT HAS EVERYTHING FOR DME, INCLUDING A WALKER, W/C, HOSPITAL BED, AND TUB BENCH HCP ON FILE SHE DOES NOT KNOW THE NAME OF HER PCP BUT CONFIRMS SHE GOES TO [facility] IN [place] DCP: HOME RESUME RESOURCE TECHNICIAN AND [facility] FAMILY TO TRANSPORT
[2022-11-27 12:02] LABS: Glucose, Whole Blood 143 mg/dL (60-115)
--- NOTE | 2022-11-27 13:02 | PM.DS ---
DS: Providers Provider Date of Service: 11/27/22 Date of admission: 11/26/22 02:17 Date of discharge: 11/27/22 Primary care physician: Unknown Physician Consults: 11/26/22 02:20 Consult to General Surgery Routine Consulting Provider: [facility] [place] [facility] Reason for consultation: ruq pain Has provider been notified: Yes 11/26/22 17:42 Consult to Gastroenterology Routine Consulting Provider: Osbaldo Love Reason for consultation: abdominal pain, elevated LFTS, hida ?cbd obstruction Has provider been notified: No Attending physician on discharge: Christoph Anne Discharging clinician: Stephanie Flores DS: Diagnosis Discharge Diagnosis (1) Transaminitis: Status: Acute DS: Summary Hospital Course Hospital Course: From H&P on day of admission Keisha is a 52-year-old female past medical history of CHF, CAD status post NSTEMI,? left below-knee amputation, COPD, diabetes, HTN, ischemic cardiomyopathy, peripheral artery disease, who presents the hospital with complaints of abdominal pain nausea vomiting.? Patient is oriented to self and place, but acting very strange.? She has itching everywhere, reports that she is having a reaction to something that she received.? She was seen in the hospital the day before for chronic pain, was given 15 mg of oxycodone x2, patient reports that this a high-dose for her, and she feels strange as a result. ? patient also? reports abdominal pain nausea and vomiting vomiting, the abdominal pain is the in the right upper quadrant, started yesterday, not associated with any nausea or vomiting, denies any diarrhea constipation, no fever chills.? ?she denies any chest pain, no shortness of breath, no orthopnea or PND. On arrival to the ED patient hemodynamically stable with no significant abnormal vitals Labs are significant for WBC? count of 8.5, hemoglobin of 10.6, hematocrit 38, all within her baseline, BUN of 25, creatinine of 1.22 with a baseline, normal sodium potassium, lactic acid of 3 total bili of 3.1, direct bili of 1.5, AST of 270, ALT of 291 which are higher than the readings from day prior, alk-phos of 97, CRP of 3.1, hepatitis panel pending. ? Abdominal pelvic CT? showed hepatosplenomegaly, abnormal heterogeneously attenuation of the liver nonspecific and could be seen with acute hepatitis Very subtle equivocal punctate gallbladder calculus with minimal layering, hyperdense bile sludge.? Diffuse gallbladder wall thickening with edema is nonspecific.? No significant pericholecystic fat stranding or free fluid.? Bilateral pleural effusion, anasarca on small volume of ascites 52-year-old female with past medical history of CAD, PAD, DM, COPD/asthma, HTN, HLD left BKA 09/20/2022, presents the hospital with abdominal pain nausea vomiting found to have acute transaminitis. patient does not know any of her medical issues, insists that she has no heart disease and is unsure what medications she takes at baseline. abdominal pain/transaminitis ultrasound of the abdomen showed limited exam but nonspecific gallbladder wall thickening. HIDA scan showing possible CBD obstruction. hepatitis profile, autoimmune markers pending. statin was placed on hold. seen by surgery, did not feel this is acute cholecystitis. MRCP obtained and report pending - unfortunately the patient elected to leave against medical advice prior to results of report. LFts remained elevated. attempted to discuss the importance of waiting for MRCP results and significance of CBD obstruction however patient became belligerent, screaming and could not be reasoned with. Time Spent with Patient Time attestation: Total time managing care of this patient today ____ minutes. Discharge coordination time: Greater than 30 minutes Quality: Safe Use of Opioids Does Pt have an Active Cancer Diagnosis on the Problem List?: No Quality: Stroke Does the patient have a stroke diagnosis?: No Physical Exam Vital Signs: Vital Signs: Last Vital Signs Temp 97.4 F 11/27/22 07:13 Pulse 100 11/27/22 08:26 Resp 16 11/27/22 08:26 BP 126/71 11/27/22 07:13 Pulse Ox 92 11/27/22 07:13 O2 Del Method Room Air 11/27/22 07:13 BMI result Body Mass Index 30.1 Const: General: cooperative, no acute distress, alert and awake Nutritional Appearance: overweight Orientation/consciousness: patient oriented x3 Resp: Other: scattered expiratory wheezes Effort & Inspection: normal respiratory effort, able to speak in complete sentences, no respiratory distress and no use of accessory muscles Cardio: Rate: regular rate Heart sounds: S1 normal heart sound present and S2 normal heart sound present GI: Other: tenderness primarily lower abdomen Inspection: No distended Palpation (GI): Soft to palpation Neuro: General: patient oriented x3 and CN's II-XI intact bilaterally Extrem: Other: s/p left AKA; open area on stump no drainage; right leg with 1-2+ edema DS: Data Data Completed and Pending Completed studies during hospitalization [Text1]: Procedures Detachment at Left Lower Leg, High, Open Approach (09/15/22) Drainage of Left Foot Skin, External Approach (11/18/21) Excision of Left Foot Skin, External Approach (09/15/22) Excision of Left Foot Subcutaneous Tissue and Fascia, Open Approach (11/18/21) Insertion of Infusion Device into Superior Vena Cava, Percutaneous Approach (08/21/21) Introduction of Anesthetic Agent into Peripheral Nerves and Plexi, Percutaneous Approach (09/15/22) Transfusion of Nonautologous Red Blood Cells into Peripheral Vein, Percutaneous Approach (06/19/22) Labs on day of discharge: Laboratory Results - last 24 hr 11/26/22 11/26/22 11/26/22 13:11 16:16 20:20 WBC RBC Hgb Hct MCV MCH MCHC RDW Plt Count MPV Absolute Nucleated RBC Nucleated RBC % (auto) Sodium Potassium Chloride Carbon Dioxide Anion Gap BUN Creatinine Estim Creat Clear Calc Estimated GFR POC Glucose 133 H 153 H 153 H Random Glucose Calcium Total Bilirubin Direct Bilirubin AST ALT Alkaline Phosphatase Total Protein Albumin 11/27/22 11/27/22 11/27/22 05:41 07:18 07:58 WBC RBC Hgb Hct MCV MCH MCHC RDW Plt Count MPV Absolute Nucleated RBC Nucleated RBC % (auto) Sodium 136 Potassium 5.3 H Chloride 107 Carbon Dioxide 17 L Anion Gap 17 BUN 31 H Creatinine 1.38 Estim Creat Clear Calc 47.3 Estimated GFR 40 POC Glucose 88 Random Glucose 75 Calcium 8.4 D Total Bilirubin 2.4 H Direct Bilirubin 1.2 H AST 286 H ALT 460 H Alkaline Phosphatase 73 Total Protein 5.0 L Albumin 2.8 L 11/27/22 11/27/22 11/27/22 08:44 11:17 11:57 WBC 7.6 RBC 4.86 Hgb 9.4 L Hct 32.9 L MCV 67.7 L MCH 19.3 L MCHC 28.6 L RDW 21.4 H Plt Count 149 L D MPV Not Reportable Absolute Nucleated RBC 0.090 H Nucleated RBC % (auto) 1.2 H Sodium Potassium Chloride Carbon Dioxide Anion Gap BUN Creatinine Estim Creat Clear Calc Estimated GFR POC Glucose 57 L* 143 H Random Glucose Calcium Total Bilirubin Direct Bilirubin AST ALT Alkaline Phosphatase Total Protein Albumin Preliminary micro results at discharge 11/25/22 19:36 Blood Culture - Preliminary Blood - Venous No growth after 24 hours. 11/25/22 19:10 Blood Culture - Preliminary Blood - Venous No growth after 24 hours. Discharge Plan Discharge Patient Disposition: Left Against Medical Advice Discharge Diagnosis: possible CBD obstruction transaminitis abdominal pain Referrals: Physician,Unknown J [Primary Care Provider] - 1 Week Discharge Medications: No Action albuterol sulfate 2.5 mg /3 mL (0.083 %) solution for nebulization 1 vial inhalation Q6H PRN (Reason: Wheezing) Qty: 90 0RF lisinopril 20 mg tablet 20 mg PO DAILY Qty: 30 0RF gabapentin 300 mg capsule 2 cap PO BID Qty: 120 0RF montelukast 10 mg tablet 1 tab PO BEDTIME Qty: 30 0RF albuterol sulfate [Ventolin HFA] 90 mcg/actuation HFA aerosol inhaler 1 puff INHALATION Q4H PRN (Reason: Wheezing) Qty: 1 0RF Incruse Ellipta 62.5 mcg/actuation blister with device 1 puff PO DAILY Qty: 1 0RF atorvastatin 80 mg Tablet 80 mg PO BEDTIME 30 Days Qty: 30 0RF acetaminophen 325 mg Tablet 650 mg PO Q8H PRN (Reason: Pain, Mild (Pain Scale 1-3)) 30 Days Qty: 90 0RF polyethylene glycol 3350 17 gram Powder In Packet 17 g PO DAILY PRN (Reason: Constipation) 5 Days Qty: 30 0RF carvedilol 3.125 mg Tablet 3.125 mg PO BID 30 Days Qty: 60 0RF Protocol: Hold for SBP/HR < HOLD for SBP < : 90 HOLD for HR < : 60 ipratropium-albuterol 0.5 mg-3 mg(2.5 mg base)/3 mL solution for nebulization 3 ml inhalation TID Qty: 90 0RF oxycodone 5 mg tablet 5 mg PO Q6H PRN (Reason: pain) Qty: 7 0RF Rx Instructions: Partial Fill upon patient request. furosemide 40 mg tablet 40 mg PO BID Qty: 60 2RF glipizide-metformin 5-500 mg tablet 2 tab PO BID clopidogrel 75 mg tablet 75 mg PO DAILY nicotine 21 mg/24 hr patch 24 hour 1 patch topical DAILY morphine 15 mg Tablet Extended Release 15 mg PO Q12H Aquacel-AG 1.2-3.5 X 4 %- bandage 1 ea topical Q OTHER DAY 30 Days Qty: 10 0RF Rx Instructions: cut portion of bandage to cover open wound, apply every other day. Cover with 4x4 gauze, 4 inch ann, and 4 inch AIDAN. Discharge Orders: Discharge Order (Routine); Ordered 11/27/22 Ordered By: Stephanie Flores Care Plan Goals: see below Health Concerns: possible CBD obstruction transaminitis diabetic foot wound - right leg abdominal pain Plan of Treatment: your liver function tests remain abnormal possible CBD obstruction can result in severe infection, sepsis and call to schedule follow up appointment with PCP recommend repeat liver function tests recommend to hold statin until repeat liver function tests are obtained Assessment: see discharge summary Discharge Date/Time: 11/27/22 14:00
[2022-11-28 04:22] LABS: HBS Num1 0.16 mIU/mL (0-7.99); HBc Num1 0.07 S/CO (0.00-0.79); HBsAGNum1 0.43 S/CO (0.00-0.99); Hepatitis A Antibody IgM 0.19 Index (0-0.79); Hepatitis B Core Antibody Nonreactive (Nonreactive); Hepatitis B Surface Antigen Negative (Negative); ~HepC Num1 0.11 S/CO (0.00-0.79); ~Hepatitis A Antibody IgM Nonreactive (Nonreactive); ~Hepatitis B Surface Antibody NONREACTIVE (Nonreactive); ~Hepatitis C Antibody Nonreactive (Nonreactive)
[2022-11-29 15:13] LABS: Mitochondrial Antibodies NEGATIVE (NEGATIVE)
[2022-11-29 19:04] LABS: ANA Titer 2 1:40 titer; Anti Nuclear Antibody Screen POSITIVE (NEGATIVE); Anti Nuclear Antibody Titer 1:40 titer
[2022-12-01 15:28] LABS: Liver Kidney Microsomal Ab <=20.0 U (<=20.0)
[2022-12-02 16:08] LABS: Smooth Muscle Antibody <20 U (<20)
== END 2022-11-27 14:00 | disposition left against medical advice (07) ==
LOC: HO.ED 11-26 02:02 → HO.EDOVER 11-26 02:21 → HO.S3 11-26 07:52
PROVIDERS: Nurse Practitioner Family; Physician Assistant Medical; Admitting Provider Internal Medicine; Emergency Provider Student in an Organized Health Care Education/Training Program; PCP Internal Medicine; Visit Provider Physician Assistant Medical
DX: K83.1 Obstruction of bile duct (principal); E11.51 Type 2 diabetes mellitus with diabetic peripheral angiopathy without gangrene; E11.621 Type 2 diabetes mellitus with foot ulcer; L97.519 Non-pressure chronic ulcer of other part of right foot with unspecified severity; I50.22 Chronic systolic (congestive) heart failure; I11.0 Hypertensive heart disease with heart failure; E11.9 Type 2 diabetes mellitus without complications; I25.10 Atherosclerotic heart disease of native coronary artery without angina pectoris; I25.5 Ischemic cardiomyopathy; J44.9 Chronic obstructive pulmonary disease, unspecified; K75.9 Inflammatory liver disease, unspecified; E87.5 Hyperkalemia; I25.2 Old myocardial infarction; F17.210 Nicotine dependence, cigarettes, uncomplicated; Z71.6 Tobacco abuse counseling; Z89.512 Acquired absence of left leg below knee; Z86.711 Personal history of pulmonary embolism; Z91.199 Patient's noncompliance with other medical treatment and regimen due to unspecified reason; Z88.0 Allergy status to penicillin; Z79.02 Long term (current) use of antithrombotics/antiplatelets; Z79.84 Long term (current) use of oral hypoglycemic drugs; Z79.899 Other long term (current) drug therapy
CPT/HCPCS: 36415; 74177; 74181; 76700; 78227; 80048; 80053; 80076; 80143; 82947; 83605; 83690; 85025; 85027; 85652; 86015; 86038; 86039; 86140; 86255; 86256; 86376; 86704; 86706; 86709; 86803; 87040; 87340; 94640; 99285; A9537; J1200; J1650; J2270; J2405; J2805; Q9967

== ENCOUNTER → 2022-11-26 02:17 | Outpatient (BNV) | payer OTHER, SELFPAY | PROVIDERS: Admitting Provider Internal Medicine; Emergency Provider Student in an Organized Health Care Education/Training Program; PCP Internal Medicine; Visit Provider Internal Medicine Gastroenterology | DX: R74.01 Elevation of levels of liver transaminase levels (principal); R93.5 Abnormal findings on diagnostic imaging of other abdominal regions, including retroperitoneum | CPT/HCPCS: 99222 ==

== ENCOUNTER 2022-12-01 17:56 | Inpatient (IN) | payer OTHER, SELFPAY ==
--- NOTE | ~2022-12-01 | XR_ITS ---
EXAMINATION: XR KNEE, LEFT CLINICAL INFORMATION: Knee pain COMPARISON: None available. TECHNIQUE: Two views of the left knee. FINDINGS: There is below-knee amputation of left leg. Minimal reduction in tricompartment joint space seen. No periarticular spurring, loose bodies or bony erosive changes. No abnormal joint effusion. No gross bony abnormality. XR/XR knee LT 2V IMPRESSION: Below-knee amputation. Mild reduction in tricompartment joint space without spurring or joint effusion. Suspect early degenerative arthritic changes.
[2022-12-01 18:17] VITALS: BP 119/64; PULSE 101; RESP 18; TEMP 36.8; O2SAT 99; BMI 25.7
--- NOTE | 2022-12-01 18:18 | ED.GENADULT ---
HPI - General Adult General Chief complaint: Wound/Laceration Stated complaint: Left foot injury Time Seen by Provider: 12/01/22 20:10 Source: patient Mode of arrival: ambulatory Limitations: no limitations History of Present Illness HPI narrative: Patient is a 52-year-old female history of diabetes, transaminitis, COPD, asthma, CHF, NSTEMI, IRAIS, presenting to the emergency department with complaints of redness, swelling to left BKA, patient reports an abundant amount of purulence drainage from left BKA incision site, patient has been diagnosed with wound dehiscence in the past however dehiscence is getting much worse. Patient reports redness, warmth to the left lower extremity. Is followed by Dr. Cantu general surgery. Reports has not been taking anything for pain as morphine is not helping. Related Data Home Medications Medication Instructions Recorded Confirmed clopidogrel 75 mg tablet 75 mg PO DAILY 11/24/22 11/26/22 glipizide 5 mg-metformin 500 mg 2 tab PO BID 11/24/22 12/01/22 tablet morphine 15 mg tablet,extended 15 mg PO Q12H PAIN 11/26/22 12/01/22 release nicotine 21 mg/24 hr daily 1 patch topical DAILY 11/26/22 12/01/22 transdermal patch aspirin 81 mg tablet,delayed 81 mg PO DAILY 12/01/22 12/01/22 release Previous Rx's Medication Instructions Recorded acetaminophen 325 mg tablet 650 mg PO Q8H PRN Pain, Mild (Pain 09/21/22 Scale 1-3) 30 days #90 tabs atorvastatin 80 mg tablet 80 mg PO BEDTIME 30 days #30 tabs 09/21/22 carvedilol 3.125 mg tablet 3.125 mg PO BID 30 days #60 tabs 09/21/22 polyethylene glycol 3350 17 gram 17 g PO DAILY PRN Constipation 5 09/21/22 oral powder packet days #30 ea albuterol sulfate 2.5 mg/3 mL 1 vial inhalation Q6H PRN Wheezing 09/29/22 (0.083 %) solution for nebulization #90 mL albuterol sulfate 90 mcg/actuation 1 puff inhalation Q4H PRN Wheezing 09/29/22 aerosol inhaler (Ventolin HFA) #1 g gabapentin 300 mg capsule 2 cap PO BID #120 caps 09/29/22 lisinopril 20 mg tablet 20 mg PO DAILY #30 tabs 04/20/23 montelukast 10 mg tablet 1 tab PO BEDTIME #30 tabs 09/29/22 umeclidinium 62.5 mcg/actuation 1 puff PO DAILY #1 ea 09/29/22 blister powder for inhalation (Incruse Ellipta) ipratropium 0.5 mg-albuterol 3 mg 3 ml inhalation TID #90 mL 10/14/22 (2.5 mg base)/3 mL nebulization soln oxycodone 5 mg tablet 5 mg PO Q6H PRN pain #7 tabs 10/21/22 furosemide 40 mg tablet 40 mg PO BID #60 tabs 10/27/22 silver-hydrocolloid dressing 1.2 1 ea topical Q OTHER DAY 1 month 11/22/22 %-3.5 X 4 (Aquacel-AG) #10 ea Allergies Allergy/AdvReac Type Severity Reaction Status Date / Time Penicillins [PENICILLINS] Allergy Severe RASH Verified 11/22/22 14:46 amoxicillin [AMOXICILLIN] Allergy Intermediate HIVES Verified 11/22/22 14:46 perflutren [From Definity] AdvReac Back Pain Verified 11/22/22 14:46 Review of Systems Review of Systems: Constitutional : No Weight loss, No Fever, No Chills, No Fatigue, No Malaise ENT/Mouth : No sore throat, No Rhinorrhea Eyes: No Eye Pain, No Swelling, No Redness Cardiovascular : No Chest Pain, No SOB, No Dyspnea on Exertion, No Orthopnea, No Edema, No Palpitations Respiratory : No Cough, No Sputum, No Wheezing Gastrointestinal : No Nausea, No Vomiting, No Diarrhea, No Constipation, No abdominal Pain, No Hematochezia, No Melena Genitourinary : No Dysuria, No Urinary Frequency, No Hematuria, Musculoskeletal : + joint pain, No Myalgias, + Joint Swelling Skin : No Skin Lesions, + rash Neuro : No Weakness, No Numbness, No Dizziness, No Headache Psych : No Anxiety/Panic, No Depression All other systems reviewed and are negative Yes all other systems are reviewed and are negative [facility] Past Medical History Attestation statement: The following information was validated with the patient. Source: old records reviewed and nursing notes reviewed Medical History Asthma Atherosclerotic cardiovascular disease Atrial tachycardia Below-knee amputation of left lower extremity Cellulitis in diabetic foot COPD (chronic obstructive pulmonary disease) Coronary artery disease COVID-19 vaccine series completed Diabetes Diabetic foot infection Diabetic foot infection Diabetic foot ulcer Diabetic toe ulcer Essential hypertension GERD (gastroesophageal reflux disease) Hyperglycemia due to diabetes mellitus Hypertension Ischemic cardiomyopathy Left against medical advice Left against medical advice Osteomyelitis Osteomyelitis 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 PAD (peripheral artery disease) Surgical History History of esophagogastroduodenoscopy (EGD) History of toe surgery (09/22/21) Status post below-knee amputation of left lower extremity (09/20/22) Family History Family History Mother Hx of CABG Sister CAD (coronary artery disease) Social History Social History Household Members: Significant Other and Children Housing: Apartment Do you presently have visiting nurse or other home services: Yes Unable to assess alcohol history related to: Refusing to respond Alcohol intake: never Patient Tobacco Use Status: Current everyday Tobacco user Tobacco use type: Cigarette Cigarette Packs Per Day: 0.5 Cigarettes Per Day: 6 Years Smoked: 43 e-Cigarette/Vaping Use: Currently Using Second Hand Smoke Exposure: Yes Substance Use Type: Marijuana Advance Directives: Yes Advance Directives on File: Yes Advance Directives Date on File: 09/22/22 service: No Current occupational status: disabled Physical Exam ED Vital Signs: Vital Signs - 24 hr 12/01/22 18:17 Temperature 98.3 F Pulse Rate 101 H Respiratory Rate 18 Blood Pressure 119/64 Pulse Oximetry 99 Oxygen Delivery Method Room Air BMI result Body Mass Index 25.7 vss Appearance: Alert.? Oriented X3.? No acute distress.? Head: Normocephalic, atraumatic, no step-offs or deformities Eyes: Pupils equal, round and reactive to light.? CVS: Normal heart rate and rhythm.? Pulses normal.? Respiratory: No respiratory distress.? Breath sounds normal.? Abdomen: Soft and nontender.? Skin: Skin warm and dry.? Normal skin color.? Normal skin turgor.? Extremities: No lower extremity edema.? No calf ttp. 5/5 strength to bilateral upper and lower extremities + BKA to LLE w/ wound in his sent, erythema and warmth. Neuro: Oriented X 3.? No motor deficit.? No sensory deficit. CN 2-12 intact Course Course Course Narrative: 52-year-old female past medical history of CHF, CAD status post NSTEMI,? left below-knee amputation, COPD, diabetes, HTN, ischemic cardiomyopathy, peripheral artery disease, who presents to the ER with complaints of left BKA open wound and drainage. Reports it was bleeding last night. VSS. L BKA wrapped unable to visualize in triage. No fevers or chills. No new trauma/injury to her left BKA. Reevaluation(s) Reevaluation #1: CBC appears to be around patient's baseline. Normal lactic. Chemistry hemolyzed. Will have ED techs repeat labs. X-ray of knee pending. Time: 23:15 Reevaluation #2: Patient to be admitted to hospitalist. Pending xray and chemistry. Time: 23:15 Reevaluation #3: X-ray with no signs of osteo. Chemistry unremarkable. Inflammatory markers elevated. Patient to be admitted to the hospital team and surgery will consult, did speak to Dr. Crawford earlier Time: 00:24 Medications Administered Generic Name Dose Route Start Last Admin Trade Name Freq PRN Reason Stop Dose Admin Morphine Sulfate 4 mg 12/01/22 21:53 12/02/22 00:14 Morphine Sulfate 4 Mg/Ml Cartridge IVPUSH 4 mg Q6H PRN Administration Pain, Severe (Pain Scale 7-10) Protocol Ondansetron HCl 4 mg 12/01/22 21:51 12/02/22 00:14 Ondansetron Hcl 4 Mg/2 Ml Vial IVPUSH 4 mg Q8H PRN Administration Nausea and Vomiting Discontinued Medications Generic Name Dose Route Start Last Admin Trade Name Freq PRN Reason Stop Dose Admin Fentanyl 25 mcg 12/01/22 21:40 12/01/22 22:26 Fentanyl Citrate/Pf 100 Mcg/2 Ml Vial IVPUSH 12/01/22 21:41 25 mcg ONCE ONE Administration Protocol Ceftriaxone Sodium 1 gm/ 50 mls @ 100 mls/hr 12/01/22 21:36 12/01/22 23:00 Sodium Chloride IV 12/01/22 22:05 Infused ONCE ONE Infusion Vancomycin HCl 1,500 mg/ 500 mls @ 333.333 mls/hr 12/01/22 21:45 12/01/22 22:58 Sodium Chloride IV 12/01/22 23:14 333.33 mls/hr ONCE ONE Administration Medical Decision Making Medical Decision Making [facility] Narrative: 52-year-old female presents with redness, swelling and wound dehiscence to left BKA incision site. Worsening. Physical exam with erythema, warmth and wound dehiscence to BKA site with large amount of purulence from site. Concerns for celulitis. Will rule out osteomyelitis. Will rule out electrolyte abnormalities. Plan vanco and ceftriaxone this patient has a penicillin allergy will not give Zosyn. Basic labs, blood cultures, lactic acid. Likely hospital admission. I did speak to surgery Dr. Crawford is to feels as though patient should be admitted to Medicine and surgery will follow Differential Diagnosis Differential Diagnoses: The differential diagnosis associated with the presentation includes Concerns for celulitis. Will rule out osteomyelitis. Will rule out electrolyte abnormalities. Admission/Observation Consideration of admission/observation: Escalation of care including admission/observation considered Likely Consult Healthcare Provider Management of the patient was discussed with: Inside Sales Coordinator (General surgery ) Lab Data [facility] Lab Attestation statement: I reviewed the patient's lab results. 12/01/22 22:04 12/01/22 22:04 Labs: Lab Results 12/01/22 12/01/22 12/01/22 Range/Units 22:04 22:04 22:04 WBC 10.1 (4.8-10.8) X10*3/uL RBC 5.88 H D (4.20-5.50) X10*6/uL Hgb 11.3 L D (12.0-16.0) g/dl Hct 38.9 (37.0-47.0) % MCV 66.2 L (80.0-98.0) fL MCH 19.2 L (27.0-33.0) pg MCHC 29.0 L (31.0-35.0) g/dl RDW 22.1 H (11.0-16.0) % Plt Count 129 L (160-400) X10*3/uL MPV Not Reportable Immature Gran % (Auto) 0.4 (0.0-0.4) % Neut % (Auto) 82.3 H (45-73) % Lymph % (Auto) 10.0 L (20-40) % [place] % (Auto) 6.6 (2-11) % Eos % (Auto) 0.4 (0-4) % Baso % (Auto) 0.3 (0-2) % Lymph # (Auto) 1.0 L (1.2-4.9) X10*3/uL [place] # (Auto) 0.7 (0.1-1.2) X10*3/uL Eos # (Auto) 0.0 (0.0-0.4) X10*3/uL Baso # (Auto) 0.0 (0.0-0.2) X10*3/uL Abs Immat Gran (auto) 0.04 H (0.00-0.03) X10*3/uL Absolute Neuts (auto) 8.3 (2.0-8.3) x10*3/uL Absolute Nucleated RBC 0.080 H (0.0-0.012) X10*3/uL Nucleated RBC % (auto) 0.8 H (0.0-0.2) /100WBC ESR 2 (0-20) MM/HR Sodium (135-145) mmol/L Potassium (3.3-5.1) mmol/L Chloride (96-108) mmol/L Carbon Dioxide (22-29) mmol/L Anion Gap (12-20) BUN (9-16) mg/dL Creatinine (0.5-1.4) mg/dL Estim Creat Clear Calc Estimated GFR Random Glucose (60-115) mg/dL Lactic Acid 1.6 (0.5-2.0) mmol/L Calcium (8.4-10.2) mg/dL Total Bilirubin (0.0-1.0) mg/dL AST (5-31) U/L ALT (0-31) U/L Alkaline Phosphatase (39-117) U/L C-Reactive Protein (< or = 0.50) mg/dL Total Protein (6.5-8.0) g/dL Albumin (3.5-5.0) g/dL 12/01/22 Range/Units 23:50 WBC (4.8-10.8) X10*3/uL RBC (4.20-5.50) X10*6/uL Hgb (12.0-16.0) g/dl Hct (37.0-47.0) % MCV (80.0-98.0) fL MCH (27.0-33.0) pg MCHC (31.0-35.0) g/dl RDW (11.0-16.0) % Plt Count (160-400) X10*3/uL MPV Immature Gran % (Auto) (0.0-0.4) % Neut % (Auto) (45-73) % Lymph % (Auto) (20-40) % [place] % (Auto) (2-11) % Eos % (Auto) (0-4) % Baso % (Auto) (0-2) % Lymph # (Auto) (1.2-4.9) X10*3/uL [place] # (Auto) (0.1-1.2) X10*3/uL Eos # (Auto) (0.0-0.4) X10*3/uL Baso # (Auto) (0.0-0.2) X10*3/uL Abs Immat Gran (auto) (0.00-0.03) X10*3/uL Absolute Neuts (auto) (2.0-8.3) x10*3/uL Absolute Nucleated RBC (0.0-0.012) X10*3/uL Nucleated RBC % (auto) (0.0-0.2) /100WBC ESR (0-20) MM/HR Sodium 137 (135-145) mmol/L Potassium 3.6 D (3.3-5.1) mmol/L Chloride 102 (96-108) mmol/L Carbon Dioxide 26 (22-29) mmol/L Anion Gap 13 (12-20) BUN 11 (9-16) mg/dL Creatinine 0.70 (0.5-1.4) mg/dL Estim Creat Clear Calc 86.6 Estimated GFR > 60 Random Glucose 80 (60-115) mg/dL Lactic Acid (0.5-2.0) mmol/L Calcium 8.7 (8.4-10.2) mg/dL Total Bilirubin 3.1 H (0.0-1.0) mg/dL AST 22 (5-31) U/L ALT 109 H (0-31) U/L Alkaline Phosphatase 89 (39-117) U/L C-Reactive Protein 6.00 H (< or = 0.50) mg/dL Total Protein 5.4 L (6.5-8.0) g/dL Albumin 2.8 L (3.5-5.0) g/dL Independent Interpretation I performed an independent interpretation of an: Plain X-Ray Radiology Impression Discussion of test interpretation with radiology: I have reviewed the radiologist's reading. Chronic Conditions Patient?s care impacted by: Diabetes Core Measures AMI core measures followed: Yes Measure exclusions: not indicated Critical Care Time Critical Care Time Critical Care Time: No Discharge Plan Discharge Clinical Impression: Cellulitis of left lower extremity, Wound dehiscence Patient Disposition: Admitted As Inpatient
--- NOTE | 2022-12-01 21:53 | PM.IMHP ---
History of Present Illness Date of Service: 12/01/22 Chief Complaint: Wound infection This is a 52-year-old with a pertinent history of COPD, congestive heart failure with reduced ejection fraction, rri-ymimhej-acqczxutm diabetes mellitus with neuropathy, essential hypertension, CAD status post LAD stent, peripheral vascular disease status post left BKA who presents to the emergency department for evaluation of warmth, redness purulent drainage from left BKA wound. Patient states she has been having drainage from her left BKA wound over the last few days. On the day of presentation, patient had significant serosanguineous drainage which was foul smelling and hence decided to present to the ER for further evaluation. She also noticed that her left lower extremity is red and warm. Noted wound dehiscence. Patient denies fever, chills, chest discomfort, palpitations, shortness of breath, abdominal pain, changes in urinary or bowel habits Of note, patient was recently admitted on 11/26 with abdominal pain and transaminitis but left AMA on 11/27 prior to completion of workup. The emergency department, general surgery was consulted who requested admission and will evaluate the patient in a.m. Review of Systems Constitutional: Constitutional: Reports no additional constitutional complaints Cardiovascular: Cardiovascular: Reports no additional cardiovascular complaints Respiratory: Respiratory: Reports no additional respiratory complaints Gastrointestinal: Gastrointestinal: Reports no additional gastrointestinal complaints Genitourinary: Genitourinary: Reports no additional female genitourinary complaints [facility] Medical History Asthma Atherosclerotic cardiovascular disease Atrial tachycardia Below-knee amputation of left lower extremity Cellulitis in diabetic foot COPD (chronic obstructive pulmonary disease) Coronary artery disease COVID-19 vaccine series completed Diabetes Diabetic foot infection Diabetic foot infection Diabetic foot ulcer Diabetic toe ulcer Essential hypertension GERD (gastroesophageal reflux disease) Hyperglycemia due to diabetes mellitus Hypertension Ischemic cardiomyopathy Left against medical advice Left against medical advice Osteomyelitis Osteomyelitis 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 PAD (peripheral artery disease) Family History Mother Hx of CABG Sister CAD (coronary artery disease) Surgical History History of esophagogastroduodenoscopy (EGD) History of toe surgery (09/22/21) Status post below-knee amputation of left lower extremity (09/20/22) Social History Household Members: Significant Other and Children Housing: Apartment Do you presently have visiting nurse or other home services: Yes Unable to assess alcohol history related to: Refusing to respond Alcohol intake: never Patient Tobacco Use Status: Current everyday Tobacco user Tobacco use type: Cigarette Cigarette Packs Per Day: 0.5 Cigarettes Per Day: 6 Years Smoked: 43 e-Cigarette/Vaping Use: Currently Using Second Hand Smoke Exposure: Yes Substance Use Type: Marijuana Advance Directives: Yes Advance Directives on File: Yes Advance Directives Date on File: 09/22/22 service: No Current occupational status: disabled Meds Allergies Allergy/AdvReac Type Severity Reaction Status Date / Time Penicillins [PENICILLINS] Allergy Severe RASH Verified 11/22/22 14:46 amoxicillin [AMOXICILLIN] Allergy Intermediate HIVES Verified 11/22/22 14:46 perflutren [From Definity] AdvReac Back Pain Verified 11/22/22 14:46 Active Medications: Current Medications Ceftriaxone Sodium 1 gm/ (Sodium Chloride) 50 mls @ 100 mls/hr IV ONCE ONE Stop: 12/01/22 22:05 Vancomycin HCl 1,500 mg/ (Sodium Chloride) 500 mls @ 333.333 mls/hr IV ONCE ONE Stop: 12/01/22 23:14 Pharmacy Consult (Consult Rx Vancomycin Dosing) 1 each MISCELLANE DAILY PRN PRN Reason: Consult order Pharmacy Consult (Consult Rx Perform Med Rec) 1 each MISCELLANE ONCE PRN PRN Reason: Consult order Home Medications Medication Instructions Recorded Confirmed Last Taken Type clopidogrel 75 mg tablet 75 mg PO DAILY 11/24/22 11/26/22 Unknown History glipizide 5 mg-metformin 500 mg 2 tab PO BID 11/24/22 12/01/22 Unknown History tablet morphine 15 mg tablet,extended 15 mg PO Q12H PAIN 11/26/22 12/01/22 Unknown History release nicotine 21 mg/24 hr daily 1 patch topical DAILY 11/26/22 12/01/22 Unknown History transdermal patch aspirin 81 mg tablet,delayed 81 mg PO DAILY 12/01/22 12/01/22 Unknown History release Physical Exam Vital Signs and Narrative: Vital Signs: Last Vital Signs Temp 98.3 F 12/01/22 18:17 Pulse 101 H 12/01/22 18:17 Resp 18 12/01/22 18:17 BP 119/64 12/01/22 18:17 Pulse Ox 99 12/01/22 18:17 O2 Del Method Room Air 12/01/22 18:17 BMI result Body Mass Index 25.7 Middle-aged male lying in bed in mild distress Neck supple, no JVD Tachycardic with regular, S1-S2 heard Regular breath sounds bilaterally, no wheezing or crackles appreciated Abdomen soft nontender, no guarding, no rigidity Patient is awake, alert and oriented to self, place, time and person ; no focal motor deficit Extremity: Left lower extremity with warmth, tenderness and swelling. Left BKA wound dehiscence with purulent serosanguineous drainage Psych: Normal mood No pedal edema Results Labs 12/01/22 22:04 12/01/22 23:50 Assessment and Plan (1) Wound dehiscence: Status: Acute (2) Cellulitis: Status: Acute Plan This is a 52-year-old with a pertinent history of COPD, congestive heart failure with reduced ejection fraction, bed-rfplofm-xztahtokt diabetes mellitus with neuropathy, essential hypertension, CAD status post LAD stent, peripheral vascular disease status post left BKA who presents to the emergency department for evaluation of warmth, redness purulent drainage from left BKA wound. #. Purulent cellulitis of left BKA wound with dehiscence. Will admit patient and initiate empiric IV vancomycin. General surgery, Dr. Crawford is was consulted from the ER, appreciate assistance. #. Congestive heart failure with reduced ejection fraction. Continue Coreg, lisinopril and furosemide #. Coronary artery disease status post stent to proximal LAD. Continue beta-connor, statin and Plavix #. Joc-ojxopgh-oqejyhmzp diabetes mellitus. Hold oral antihyperglycemics. Initiating Accu-Cheks with sliding scale insulin before meals and at bedtime #. Essential hypertension. Continue home antihypertensives #. Pulmonary embolus, diagnosed in September at outside facility. Patient supposed to be on Eliquis. Initiating therapeutic Lovenox Med rec pending DVT prophylaxis: Therapeutic Lovenox Full code Cardiac diet Admit as inpatient and will require two night minimum hospital stay for IV antibiotics. Specialist consult pending Time Spent With Patient Time: Total time managing care of this patient today ____ minutes. Quality Stroke Does the patient have a stroke diagnosis?: No VTE Prior VTE?: No VTE Risk Level:: Medical - moderate - high VTE Device Contraindication: Treatment Not Indicated VTE Drug Contraindication: N/A - Med Ordered
[2022-12-01 22:18] LABS: MANUAL DIFF FLAG NO
[2022-12-01] MEDS: fentaNYL citrate/PF 100 MCG/2 ML VIAL 25 MCG IVPUSH (22:26)
[2022-12-01] MEDS: cefTRIAXone sodium 1 GM in 0.9 % Sodium Chloride 50 ML IV (22:26)
[2022-12-01 22:30] LABS: Basophils Percent Auto 0.3 % (0-2); Eosinophils Percent Auto 0.4 % (0-4); Hematocrit 38.9 % (37.0-47.0); Hemoglobin 11.3 g/dl (12.0-16.0); Imm Gran Abs Auto 0.04 X10*3/uL (0.00-0.03); Imm Gran Pct Auto 0.4 % (0.0-0.4); Mean Corpuscular Hemoglobin 19.2 pg (27.0-33.0); Mean Corpuscular Volume 66.2 fL (80.0-98.0); Monocytes Absolute Auto 0.7 X10*3/uL (0.1-1.2); Monocytes Percent Auto 6.6 % (2-11); NRBC Pct Auto 0.8 /100WBC (0.0-0.2); Neutrophils Absolute Auto 8.3 x10*3/uL (2.0-8.3); Neutrophils Percent Auto 82.3 % (45-73); Platelet Count 129 X10*3/uL (160-400); Red Blood Count 5.88 X10*6/uL (4.20-5.50); Red Cell Distribution Width 22.1 % (11.0-16.0); White Blood Count 10.1 X10*3/uL (4.8-10.8)
[2022-12-01 22:42] LABS: Lactic Acid 1.6 mmol/L (0.5-2.0)
--- NOTE | 2022-12-01 22:46 | PHA.MEDREC ---
Addendum entered by Kandice Bruno RPh 12/02/22 07:36: Per last visit, patient was suppose to continue ASA + Plavix. Patient reports Brillenta however was told to stop and continue with clopidegrel. Original Note: Pharmacy Consult ? Medication Reconciliation Pharmacy has completed the medication reconciliation. Patient was admitted twice this month. will verify in AM to ensure pt still on plavix plus aspirin joy
[2022-12-01] MEDS: vancomycin HCL 1,500 MG in 0.9 % Sodium Chloride 500 ML 333.33 MG IV (22:58)
[2022-12-01 23:28] LABS: Erythrocyte Sedimentation Rate 2 MM/HR (0-20)
[2022-12-02 00:10] LABS: Anion Gap 13 (12-20)
[2022-12-02] MEDS: Morphine Sulfate 4 MG/ML CARTRIDGE IVPUSH ×3 (00:14→10:02)
[2022-12-02] MEDS: ondansetron HCL 4 MG/2 ML VIAL IVPUSH (00:14)
[2022-12-02 00:15] LABS: Alanine Aminotransferase 109 U/L (0-31); Albumin Level 2.8 g/dL (3.5-5.0); Alkaline Phosphatase 89 U/L (39-117); Aspartate Amino Transferase 22 U/L (5-31); Bilirubin Total 3.1 mg/dL (0.0-1.0); Blood Urea Nitrogen 11 mg/dL (9-16); Calcium 8.7 mg/dL (8.4-10.2); Carbon Dioxide 26 mmol/L (22-29); Chloride 102 mmol/L (96-108); Creatinine Clr Calc Pharmacy 86.6; Estimated Glomerular Filt Rate > 60; Glucose Random 80 mg/dL (60-115); Potassium 3.6 mmol/L (3.3-5.1); Sodium 137 mmol/L (135-145); Total Protein 5.4 g/dL (6.5-8.0)
--- NOTE | 2022-12-02 00:23 | PC.NURSE ---
ultra sound guided iv #22g LFA placed by Samantha CARTAGENA
--- NOTE | 2022-12-02 01:51 | PC.NURSE ---
late entry - pt reports pain to ultra sound guided iv line. #22G IV RAC being used flushes well good blood return. vancomycin currently runing through iv line.
[2022-12-02] MEDS: diphenhydrAMINE HCL 50 MG/ML VIAL IVPUSH (01:56)
[2022-12-02] MEDS: Enoxaparin Sodium 80 MG/0.8 ML SYRINGE 65 MG SUBCUT (01:56)
--- NOTE | 2022-12-02 02:20 | PC.NURSE ---
patient received in bed with eyes close easy to arouse patient vitals are stable at this time patient was medicated for pain prior to being placed in overflow patient was given a few pillows to prop up her leg patient was advised to allow the arm with the IV to stay straight so the antibiotic could continue to be administered patient is very noncompliant patient will continue to be monitored for safety
[2022-12-02 02:21] VITALS: BP 120/65; PULSE 100; RESP 20; TEMP 36.8; O2SAT 96
[2022-12-02 05:41] VITALS: RESP 16
[2022-12-02 05:46] LABS: MANUAL DIFF FLAG NO
[2022-12-02 05:53] LABS: Basophils Percent Auto 0.5 % (0-2); Eosinophils Absolute Auto 0.1 X10*3/uL (0.0-0.4); Eosinophils Percent Auto 0.6 % (0-4); Hematocrit 33.6 % (37.0-47.0); Hemoglobin 9.8 g/dl (12.0-16.0); Imm Gran Abs Auto 0.04 X10*3/uL (0.00-0.03); Imm Gran Pct Auto 0.5 % (0.0-0.4); Lymphocytes Absolute Auto 1.2 X10*3/uL (1.2-4.9); Lymphocytes Percent Auto 15.2 % (20-40); Mean Corpuscular HGB Conc 29.2 g/dl (31.0-35.0); Mean Corpuscular Hemoglobin 19.1 pg (27.0-33.0); Mean Corpuscular Volume 65.4 fL (80.0-98.0); Monocytes Absolute Auto 0.5 X10*3/uL (0.1-1.2); Monocytes Percent Auto 6.5 % (2-11); Neutrophils Percent Auto 76.7 % (45-73); Platelet Count 112 X10*3/uL (160-400); Red Blood Count 5.14 X10*6/uL (4.20-5.50); Red Cell Distribution Width 21.3 % (11.0-16.0); White Blood Count 7.8 X10*3/uL (4.8-10.8)
[2022-12-02 06:05] LABS: Anion Gap 10 (12-20); Blood Urea Nitrogen 10 mg/dL (9-16); Calcium 8.2 mg/dL (8.4-10.2); Carbon Dioxide 28 mmol/L (22-29); Chloride 103 mmol/L (96-108); Creatinine Clr Calc Pharmacy 90.5; Estimated Glomerular Filt Rate > 60; Glucose Random 69 mg/dL (60-115); Potassium 3.4 mmol/L (3.3-5.1); Sodium 138 mmol/L (135-145)
[2022-12-02] MEDS: 0.9 % Sodium Chloride Flush 3 ML SYRINGE IVFLUSH (07:15)
[2022-12-02 07:16] LABS: Glucose, Whole Blood 74 mg/dL (60-115)
[2022-12-02 07:19] VITALS: BP 118/72; PULSE 88; RESP 18; TEMP 36.9; O2SAT 91
--- NOTE | 2022-12-02 09:04 | PC.NURSE ---
Assumed care of patient at 0645, at this time patient resting in bed eyes closed, noted rise and fall of chest. Pt A&Ox3 upon awakening, endorsing severe pain in left leg, PRN morphine given on previous shift and not due for next dose, Tylenol offered patient refused, MD Umaña made aware PRN morhpine frequency changed to Q4 hours. Pt morning blood glucose POC 74, pt A&Ox3 at this time, no signs and symptoms of hypoglycemia, snack offered to patient. Left stump wound [employer]ASS [employer]ER when assumed care of patient, wound oozing small amounts of clear yellow drainage, site cleansed with NaCl, patted dry, and gauze wrap applied. Pt resting in bed comfortably at this time, VSS.
[2022-12-02] MEDS: vancomycin HCL 1,000 MG in 0.9 % Sodium Chloride 250 ML 270 MG IV (11:03)
--- NOTE | 2022-12-02 11:05 | PM.CNGS ---
History of Present Illness Consult details Consult date: 12/02/22 Requesting physician: Delta Umaña Narrative: 52 year old female with PMH of COPD, congestive heart failure with reduced ejection fraction, nqp-fvtujag-ivtxprjra diabetes mellitus with neuropathy, hypertension, CAD status post LAD stent, peripheral vascular disease who underwent left BKA in September 2022 for nonhealing chronic ulcer of the heel. She had been doing fairly well post operatively however fell onto the stump in early November and developed an opening. She was seen in the office and silver alginate dressing changes by VNA every other day were initiated. She presented to the ED yesterday for worsening pain, redness, swelling and increasing drainage from the stump. She was admitted to the medical service and started on vancomycin. Surgery was consulted for the left BKA wound. Review of Systems Constitutional: Constitutional: Denies chills and Denies fever(s) ENT: Denies dizziness Cardiovascular: Cardiovascular: Denies chest pain and Denies dyspnea Respiratory: Respiratory: Denies dyspnea Gastrointestinal: Gastrointestinal: Denies abdominal pain, Denies nausea and Denies vomiting Genitourinary: Genitourinary: Denies hematuria Integumentary/Breasts: Skin/Breast: Reports as per HPI and Denies jaundice Neurologic: Denies dizziness PMFSH Past Medical History Medical History Asthma Atherosclerotic cardiovascular disease Atrial tachycardia Below-knee amputation of left lower extremity Cellulitis in diabetic foot COPD (chronic obstructive pulmonary disease) Coronary artery disease COVID-19 vaccine series completed Diabetes Diabetic foot infection Diabetic foot infection Diabetic foot ulcer Diabetic toe ulcer Essential hypertension GERD (gastroesophageal reflux disease) Hyperglycemia due to diabetes mellitus Hypertension Ischemic cardiomyopathy Left against medical advice Left against medical advice Osteomyelitis Osteomyelitis 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 PAD (peripheral artery disease) Family History Family History Mother Hx of CABG Sister CAD (coronary artery disease) Surgical History Surgical History History of esophagogastroduodenoscopy (EGD) History of toe surgery (09/22/21) Status post below-knee amputation of left lower extremity (09/20/22) Social History Social History Household Members: Significant Other and Children Housing: Apartment Do you presently have visiting nurse or other home services: Yes Unable to assess alcohol history related to: Refusing to respond Alcohol intake: never Patient Tobacco Use Status: Tobacco use Unknown Tobacco use type: Cigarette Cigarette Packs Per Day: 0.5 Cigarettes Per Day: 6 Years Smoked: 43 e-Cigarette/Vaping Use: Currently Using Second Hand Smoke Exposure: Yes Substance Use Type: Marijuana Advance Directives: Yes Advance Directives on File: Yes Advance Directives Date on File: 09/22/22 Nutrition Risks: No Nutritional Risk Patient : No service: No Current occupational status: disabled Meds Allergies Allergy/AdvReac Type Severity Reaction Status Date / Time Penicillins [PENICILLINS] Allergy Severe RASH Verified 11/22/22 14:46 amoxicillin [AMOXICILLIN] Allergy Intermediate HIVES Verified 11/22/22 14:46 perflutren [From Definity] AdvReac Back Pain Verified 11/22/22 14:46 Active Medications: Current Medications Acetaminophen (Acetaminophen 325 Mg Tablet) 650 mg PO Q6H PRN PRN Reason: Pain, Mild (Pain Scale 1-3) Dextrose (Dextrose 50 % 25 Gm/50 Ml Syringe) 25 gm IVPUSH Q15M PRN; Protocol PRN Reason: per Hypoglycemia Standing Ord. Enoxaparin Sodium (Enoxaparin Sodium 80 Mg/0.8 Ml Syringe) 65 mg SUBCUT Q12H [facility] Last Admin: 12/02/22 01:56 Dose: 65 mg Glucose (Glucose Gel 15 Gm Gel..Gram.) 15 gm PO Q15M PRN; Protocol PRN Reason: per Hypoglycemia Standing Ord. Vancomycin HCl 1,000 mg/ (Sodium Chloride) 270 mls @ 270 mls/hr IV Q12H [facility] Last Admin: 12/02/22 11:03 Dose: 270 mls/hr Insulin Human Lispro (Insulin Lispro 100 Unit/Ml 3 Ml Vial) 0 unit SUBCUT QIDACHS [facility]; Protocol Last Admin: 12/02/22 07:23 Dose: Not Given Melatonin (Melatonin 3 Mg Tablet) 6 mg PO BEDTIME PRN PRN Reason: Insomnia Morphine Sulfate (Morphine Sulfate 4 Mg/Ml Cartridge) 4 mg IVPUSH Q4H PRN; Protocol PRN Reason: Pain, Severe (Pain Scale 7-10) Last Admin: 12/02/22 10:02 Dose: 4 mg Ondansetron HCl (Ondansetron Hcl 4 Mg/2 Ml Vial) 4 mg IVPUSH Q8H PRN PRN Reason: Nausea and Vomiting Last Admin: 12/02/22 00:14 Dose: 4 mg Pharmacy Consult (Consult Rx Perform Med Rec) 1 each MISCELLANE ONCE PRN PRN Reason: Consult order Pharmacy Consult (Consult Rx Vancomycin Dosing) 1 each MISCELLANE DAILY PRN PRN Reason: Consult order Sodium Chloride (0.9 % Sodium Chloride Flush 3 Ml Syringe) [facility] Last Admin: 12/02/22 07:15 Dose: 3 ml Home Medications Medication Instructions Recorded Confirmed Last Taken Type clopidogrel 75 mg tablet 75 mg PO DAILY 11/24/22 12/02/22 Unknown History glipizide 5 mg-metformin 500 mg 2 tab PO BID 11/24/22 12/01/22 Unknown History tablet morphine 15 mg tablet,extended 15 mg PO Q12H PAIN 11/26/22 12/01/22 Unknown History release nicotine 21 mg/24 hr daily 1 patch topical DAILY 11/26/22 12/01/22 Unknown History transdermal patch aspirin 81 mg tablet,delayed 81 mg PO DAILY 12/01/22 12/01/22 Unknown History release Physical Exam Vital Signs: Vital Signs: Last Vital Signs Temp 98.5 F 12/02/22 07:19 Pulse 88 12/02/22 07:19 Resp 18 12/02/22 07:19 BP 118/72 12/02/22 07:19 Pulse Ox 91 L 12/02/22 07:19 O2 Del Method Room Air 12/02/22 07:19 BMI result Body Mass Index 25.7 Const: General: no acute distress, alert and other (disheveled appearing) Orientation/consciousness: patient oriented x3 Resp: Effort & Inspection: normal respiratory effort GI: Inspection: No distended Palpation (GI): Soft to palpation, nontender, no guarding and not rigid Skin: Other: warm and dry Neuro: General: patient oriented x3 and moves all extremities Extrem: Other: left BKA site with 5cm x 2cm opening at the medial aspect, clean appearing, no necrotic tissue, remainder of stump well approximated, some serous drainage noted, no purulence, significant surrounding edema and erythema extending to knee, no palpable fluctuance Results Labs 12/02/22 05:27 12/02/22 05:27 Labs: Abnormal lab results 12/01/22 12/01/22 12/02/22 Range/Units 22:04 23:50 05:27 RBC 5.88 H D (4.20-5.50) X10*6/uL Hgb 11.3 L D 9.8 L (12.0-16.0) g/dl Hct 33.6 L (37.0-47.0) % MCV 66.2 L 65.4 L (80.0-98.0) fL MCH 19.2 L 19.1 L (27.0-33.0) pg MCHC 29.0 L 29.2 L (31.0-35.0) g/dl RDW 22.1 H 21.3 H (11.0-16.0) % Plt Count 129 L 112 L (160-400) X10*3/uL Immature Gran % (Auto) 0.5 H (0.0-0.4) % Neut % (Auto) 82.3 H 76.7 H (45-73) % Lymph % (Auto) 10.0 L 15.2 L (20-40) % Lymph # (Auto) 1.0 L (1.2-4.9) X10*3/uL Abs Immat Gran (auto) 0.04 H 0.04 H (0.00-0.03) X10*3/uL Absolute Nucleated RBC 0.080 H 0.080 H (0.0-0.012) X10*3/uL Nucleated RBC % (auto) 0.8 H 1.0 H (0.0-0.2) /100WBC Anion Gap (12-20) Calcium (8.4-10.2) mg/dL Total Bilirubin 3.1 H (0.0-1.0) mg/dL ALT 109 H (0-31) U/L C-Reactive Protein 6.00 H (< or = 0.50) mg/dL Total Protein 5.4 L (6.5-8.0) g/dL Albumin 2.8 L (3.5-5.0) g/dL 12/02/22 Range/Units 05:27 RBC (4.20-5.50) X10*6/uL Hgb (12.0-16.0) g/dl Hct (37.0-47.0) % MCV (80.0-98.0) fL MCH (27.0-33.0) pg MCHC (31.0-35.0) g/dl RDW (11.0-16.0) % Plt Count (160-400) X10*3/uL Immature Gran % (Auto) (0.0-0.4) % Neut % (Auto) (45-73) % Lymph % (Auto) (20-40) % Lymph # (Auto) (1.2-4.9) X10*3/uL Abs Immat Gran (auto) (0.00-0.03) X10*3/uL Absolute Nucleated RBC (0.0-0.012) X10*3/uL Nucleated RBC % (auto) (0.0-0.2) /100WBC Anion Gap 10 L (12-20) Calcium 8.2 L (8.4-10.2) mg/dL Total Bilirubin (0.0-1.0) mg/dL ALT (0-31) U/L C-Reactive Protein (< or = 0.50) mg/dL Total Protein (6.5-8.0) g/dL Albumin (3.5-5.0) g/dL Short CBC 12/01/22 12/02/22 Range/Units 22:04 05:27 WBC 10.1 7.8 (4.8-10.8) X10*3/uL Hgb 11.3 L D 9.8 L (12.0-16.0) g/dl Hct 38.9 33.6 L (37.0-47.0) % Plt Count 129 L 112 L (160-400) X10*3/uL BMP 12/01/22 12/02/22 23:50 05:27 Sodium 137 138 Potassium 3.6 D 3.4 Chloride 102 103 Carbon Dioxide 26 28 BUN 11 10 Creatinine 0.70 0.67 Calcium 8.7 8.2 L Liver Function 12/01/22 Range/Units 23:50 Total Bilirubin 3.1 H (0.0-1.0) mg/dL AST 22 (5-31) U/L ALT 109 H (0-31) U/L Alkaline Phosphatase 89 (39-117) U/L Albumin 2.8 L (3.5-5.0) g/dL All other labs normal. Assessment and Plan (1) Cellulitis: Status: Acute Plan 52-year-old female with extensive PMH who presents to the ED for evaluation for redness and increasing drainage from left BKA wound. The wound itself is clean appearing but she does have a fairly significant amount of surrounding cellulitic changes. Would recommend continuing daily dressing changes with silver alginate to incision opening followed by fluffs, kerlix and cassandra wrap for compression. Cont left stump elevation to reduce edema. No current debridement or surgical intervention necessary. If there is no significant improvement of the cellulitis within the next 1-[address] scan to r/o abscess. Was recently admitted for transaminitis but left AMA prior to work up completion. Her bilirubin is 3.1 and up from previous admission. Previous MRCP did not show any CBD obstruction. Hepatitis serologies negative. Rec trending LFTs, GI consult to evaluate. Time Spent With Patient Time: Total time managing care of this patient today ____ minutes. Procedures Date of Service Date of Service: 12/02/22
[2022-12-02 11:18] LABS: Glucose, Whole Blood 113 mg/dL (60-115)
--- NOTE | 2022-12-02 13:21 | PC.NURSE ---
Patient signed AMA paperwork, daughter and significant other at bedside for discharge, patient A+Ox3 and put in wheelchair for comfort
--- NOTE | 2022-12-02 13:21 | PM.DS ---
DS: Providers Provider Date of Service: 12/02/22 Date of admission: 12/01/22 21:51 Primary care physician: Unknown Physician Consults: 12/02/22 00:34 Consult to General Surgery Stat Consulting Provider: [facility] General Surgeons Reason for consultation: wound dehisence 12/02/22 10:34 Consult to General Surgery Routine Consulting Provider: [facility] General Sur[facility] Reason for consultation: infected ampuated wound site Has provider been notified: No DS: Diagnosis Discharge Diagnosis (1) Cellulitis: Status: Acute DS: Summary Hospital Course Hospital Course: Patient was admitted for amputation site infection, cellulitis and was been treated with IV antibiotics and awaiting surgical evaluation and possible debridement, patient with support of her family ( and daughter) have decided to leave against medical advise and to go to [facility] where they believe they will receive the care that they want, she was strongly advised not to leave and to continue to get IV antibiotics and wound care, in the end I could not convince the patient or the family and proceed to sing out against medical advise.. She was awake alert and oriented to self place and time, and had good grasp of the decision that she was making she understands if her condition is not properly treated with IV Antibiotics and proper wound care, she is at risk for worsening infection, sepsis and even . She was able restate this in her own words and proceeded to leave and declined any other offers, medication (Abx) or otherwise as she was going directly to [facility], I called [facility] for transfer and this was declined. RN was present Final diagnosis: Cellulitis of amputated site open wound infection of ampuated site Time Spent with Patient Time attestation: Total time managing care of this patient today ____ minutes. Discharge coordination time: Greater than 30 minutes Quality: Safe Use of Opioids Does Pt have an Active Cancer Diagnosis on the Problem List?: No Quality: Stroke Does the patient have a stroke diagnosis?: No Physical Exam Vital Signs: Vital Signs: Last Vital Signs Temp 98.5 F 12/02/22 07:19 Pulse 88 12/02/22 07:19 Resp 18 12/02/22 07:19 BP 118/72 12/02/22 07:19 Pulse Ox 91 L 12/02/22 07:19 O2 Del Method Room Air 12/02/22 07:19 BMI result Body Mass Index 25.7 Const: Other: DS: Data Data Completed and Pending Completed studies during hospitalization [Text1]: Procedures Detachment at Left Lower Leg, High, Open Approach (09/15/22) Drainage of Left Foot Skin, External Approach (11/18/21) Excision of Left Foot Skin, External Approach (09/15/22) Excision of Left Foot Subcutaneous Tissue and Fascia, Open Approach (11/18/21) Insertion of Infusion Device into Superior Vena Cava, Percutaneous Approach (08/21/21) Introduction of Anesthetic Agent into Peripheral Nerves and Plexi, Percutaneous Approach (09/15/22) Transfusion of Nonautologous Red Blood Cells into Peripheral Vein, Percutaneous Approach (06/19/22) Labs on day of discharge: Laboratory Results - last 24 hr 12/01/22 12/01/22 12/01/22 22:04 22:04 22:04 WBC 10.1 RBC 5.88 H D Hgb 11.3 L D Hct 38.9 MCV 66.2 L MCH 19.2 L MCHC 29.0 L RDW 22.1 H Plt Count 129 L MPV Not Reportable Immature Gran % (Auto) 0.4 Neut % (Auto) 82.3 H Lymph % (Auto) 10.0 L [place] % (Auto) 6.6 Eos % (Auto) 0.4 Baso % (Auto) 0.3 Lymph # (Auto) 1.0 L [place] # (Auto) 0.7 Eos # (Auto) 0.0 Baso # (Auto) 0.0 Abs Immat Gran (auto) 0.04 H Absolute Neuts (auto) 8.3 Absolute Nucleated RBC 0.080 H Nucleated RBC % (auto) 0.8 H ESR 2 Sodium Potassium Chloride Carbon Dioxide Anion Gap BUN Creatinine Estim Creat Clear Calc Estimated GFR POC Glucose Random Glucose Lactic Acid 1.6 Calcium Total Bilirubin AST ALT Alkaline Phosphatase C-Reactive Protein Total Protein Albumin 12/01/22 12/02/22 12/02/22 23:50 05:27 05:27 WBC 7.8 RBC 5.14 Hgb 9.8 L Hct 33.6 L MCV 65.4 L MCH 19.1 L MCHC 29.2 L RDW 21.3 H Plt Count 112 L MPV Not Reportable Immature Gran % (Auto) 0.5 H Neut % (Auto) 76.7 H Lymph % (Auto) 15.2 L [place] % (Auto) 6.5 Eos % (Auto) 0.6 Baso % (Auto) 0.5 Lymph # (Auto) 1.2 [place] # (Auto) 0.5 Eos # (Auto) 0.1 Baso # (Auto) 0.0 Abs Immat Gran (auto) 0.04 H Absolute Neuts (auto) 6.0 Absolute Nucleated RBC 0.080 H Nucleated RBC % (auto) 1.0 H ESR Sodium 137 138 Potassium 3.6 D 3.4 Chloride 102 103 Carbon Dioxide 26 28 Anion Gap 13 10 L BUN 11 10 Creatinine 0.70 0.67 Estim Creat Clear Calc 86.6 90.5 Estimated GFR > 60 > 60 POC Glucose Random Glucose 80 69 Lactic Acid Calcium 8.7 8.2 L Total Bilirubin 3.1 H AST 22 ALT 109 H Alkaline Phosphatase 89 C-Reactive Protein 6.00 H Total Protein 5.4 L Albumin 2.8 L 12/02/22 12/02/22 07:12 11:15 WBC RBC Hgb Hct MCV MCH MCHC RDW Plt Count MPV Immature Gran % (Auto) Neut % (Auto) Lymph % (Auto) [place] % (Auto) Eos % (Auto) Baso % (Auto) Lymph # (Auto) [place] # (Auto) Eos # (Auto) Baso # (Auto) Abs Immat Gran (auto) Absolute Neuts (auto) Absolute Nucleated RBC Nucleated RBC % (auto) ESR Sodium Potassium Chloride Carbon Dioxide Anion Gap BUN Creatinine Estim Creat Clear Calc Estimated GFR POC Glucose 74 113 Random Glucose Lactic Acid Calcium Total Bilirubin AST ALT Alkaline Phosphatase C-Reactive Protein Total Protein Albumin Discharge Plan Discharge Anticipated Discharge Date/Time: 12/02/22 12:56 Patient Disposition: Left Against Medical Advice Discharge Diagnosis: Wound dehesence, cellulitis of amputated site Referrals: Physician,Unknown J [Primary Care Provider] - 1 Week Discharge Medications: No Action albuterol sulfate 2.5 mg /3 mL (0.083 %) solution for nebulization 1 vial inhalation Q6H PRN (Reason: Wheezing) Qty: 90 0RF lisinopril 20 mg tablet 20 mg PO DAILY Qty: 30 0RF gabapentin 300 mg capsule 2 cap PO BID Qty: 120 0RF montelukast 10 mg tablet 1 tab PO BEDTIME Qty: 30 0RF albuterol sulfate [Ventolin HFA] 90 mcg/actuation HFA aerosol inhaler 1 puff INHALATION Q4H PRN (Reason: Wheezing) Qty: 1 0RF Incruse Ellipta 62.5 mcg/actuation blister with device 1 puff PO DAILY Qty: 1 0RF atorvastatin 80 mg Tablet 80 mg PO BEDTIME 30 Days Qty: 30 0RF acetaminophen 325 mg Tablet 650 mg PO Q8H PRN (Reason: Pain, Mild (Pain Scale 1-3)) 30 Days Qty: 90 0RF polyethylene glycol 3350 17 gram Powder In Packet 17 g PO DAILY PRN (Reason: Constipation) 5 Days Qty: 30 0RF carvedilol 3.125 mg Tablet 3.125 mg PO BID 30 Days Qty: 60 0RF Protocol: Hold for SBP/HR < HOLD for SBP < : 90 HOLD for HR < : 60 ipratropium-albuterol 0.5 mg-3 mg(2.5 mg base)/3 mL solution for nebulization 3 ml inhalation TID Qty: 90 0RF oxycodone 5 mg tablet 5 mg PO Q6H PRN (Reason: pain) Qty: 7 0RF Rx Instructions: Partial Fill upon patient request. furosemide 40 mg tablet 40 mg PO BID Qty: 60 2RF glipizide-metformin 5-500 mg tablet 2 tab PO BID clopidogrel 75 mg tablet 75 mg PO DAILY nicotine 21 mg/24 hr patch 24 hour 1 patch topical DAILY morphine 15 mg Tablet Extended Release 15 mg PO Q12H aspirin 81 mg tablet,delayed release (DR/EC) 81 mg PO DAILY Aquacel-AG 1.2-3.5 X 4 %- bandage 1 ea topical Q OTHER DAY 30 Days Qty: 10 0RF Rx Instructions: cut portion of bandage to cover open wound, apply every other day. Cover with 4x4 gauze, 4 inch ann, and 4 inch AIDAN. Discharge Orders: Discharge Order (Routine); Ordered 12/02/22 Ordered By: Delta Umaña Diet: Advance to usual diet Activity on Discharge: As tolerated Care Plan Goals: Left AMA Health Concerns: Left AMA Plan of Treatment: Left AMA You were advised that your condition needed care in the hospital with IV antibiotics and evaluation by the surgeon for possible cleaning of the wound, you understand that leaving against medical advise and not receiving the proper care can endanger your health, may lead to sepsis, aditional loss of limb, other health complication and even possibly .It is the understanding that you will to another hospital to receive.. Assessment: as above
== END 2022-12-02 13:25 | disposition left against medical advice (07) | DRG 349 ==
LOC: HO.ED 23:16 → HO.EDOVER 12-02 00:36
PROVIDERS: Physician Assistant; Admitting Provider Student in an Organized Health Care Education/Training Program; Emergency Provider Emergency Medicine; PCP Internal Medicine; Visit Provider Internal Medicine
DX: T87.44 Infection of amputation stump, left lower extremity (principal); L03.116 Cellulitis of left lower limb; E11.40 Type 2 diabetes mellitus with diabetic neuropathy, unspecified; E11.51 Type 2 diabetes mellitus with diabetic peripheral angiopathy without gangrene; I50.22 Chronic systolic (congestive) heart failure; I11.0 Hypertensive heart disease with heart failure; T87.81 Dehiscence of amputation stump; Y83.5 Amputation of limb(s) as the cause of abnormal reaction of the patient, or of later complication, without mention of misadventure at the time of the procedure; J44.9 Chronic obstructive pulmonary disease, unspecified; I25.2 Old myocardial infarction; I25.10 Atherosclerotic heart disease of native coronary artery without angina pectoris; Z88.0 Allergy status to penicillin; Z79.82 Long term (current) use of aspirin; Z79.84 Long term (current) use of oral hypoglycemic drugs; Z79.899 Other long term (current) drug therapy; Z86.711 Personal history of pulmonary embolism
CPT/HCPCS: 36415; 73560; 80048; 80053; 82947; 83605; 85025; 85652; 86140; 87040; 99221; 99284; J0696; J1200; J1650; J2270; J2405; J3010; J3370; J3371

== ENCOUNTER 2022-12-05 22:15 | Inpatient (IN) | payer OTHER, SELFPAY ==
--- NOTE | ~2022-12-05 | XR_ITS ---
EXAMINATION: XR CHEST CLINICAL INFORMATION: Dyspnea COMPARISON: 11/24/2022 TECHNIQUE: Frontal view of the chest was obtained. FINDINGS: Lung volumes are symmetric. There are mild patchy bibasilar opacities, increased from prior, along with trace pleural effusions. No evidence of pneumothorax. Cardiac silhouette remains prominent. No acute osseous findings are seen. XR/XR chest 1V IMPRESSION: Mild patchy bibasilar opacities, increased from prior, and trace pleural effusions. Appearance raises concern for developing multifocal pneumonia in the proper clinical setting.
[2022-12-05 22:27] VITALS: BP 128/107; PULSE 112; RESP 13; TEMP 36.3; O2SAT 100
[2022-12-05 22:32] VITALS: BP 128/107; PULSE 113; RESP 12; TEMP 36.8; O2SAT 100; BMI 28.2
--- NOTE | 2022-12-05 22:40 | PC.NURSE ---
this rn assisted primary rn triaging pt. this rn attempted x 2 for iv placement. two failed attempts. this rn made relief charge nurse, primary rn, and ed provider aware of failed attempts. per dr pickard hold on iv placement until md assesses pt
--- NOTE | 2022-12-05 22:48 | ECG_ITS ---
Test Reason : SOB Blood Pressure : / mmHG Vent. Rate : 112 BPM Atrial Rate : 112 BPM P-R Int : 144 ms QRS Dur : 080 ms QT Int : 344 ms P-R-T Axes : 078 050 113 degrees QTc Int : 469 ms Sinus tachycardia with occasional Premature ventricular complexes Low voltage QRS Cannot rule out Anteroseptal infarct (cited on or before 13-JUN-2022) Abnormal ECG When compared with ECG of 24-NOV-2022 22:18, No significant change was found Referred By: Matti Lindquist Electronically Signed By:Gurmeet Gallardo
[2022-12-05 22:50] VITALS: BP 136/88; PULSE 111
--- NOTE | 2022-12-05 23:38 | ED_ITS ---
HPI - General Adult General Chief complaint: Dyspnea Stated complaint: Diff breathing Time Seen by Provider: 12/05/22 22:49 Source: patient Mode of arrival: EMS Limitations: no limitations History of Present Illness HPI narrative: Patient is 52 years old with past medical history of COPD, CHF, diabetes, hypertension, neuropathy, CAD status post LAD stent 2 months ago PVD status post left BKA done on 09/21/2022 has a nonhealing wound since surgery was admitted for same and AMA on 12/02 patient is on Brilinta been coughing for last 5 days while staying in the hospital also for last 2 days noticed bright blood tinged expectoration which is thick and yellow no fever no chills patient is on Brilinta no fever no chills no other family member sick also patient is complaining of continuing swelling and more discharge from the amputation site , Related Data Home Medications Medication Instructions Recorded Confirmed clopidogrel 75 mg tablet 75 mg PO DAILY 11/24/22 12/02/22 glipizide 5 mg-metformin 500 mg 2 tab PO BID 11/24/22 12/01/22 tablet morphine 15 mg tablet,extended 15 mg PO Q12H PAIN 11/26/22 12/01/22 release nicotine 21 mg/24 hr daily 1 patch topical DAILY 11/26/22 12/01/22 transdermal patch aspirin 81 mg tablet,delayed 81 mg PO DAILY 12/01/22 12/01/22 release Previous Rx's Medication Instructions Recorded acetaminophen 325 mg tablet 650 mg PO Q8H PRN Pain, Mild (Pain 09/21/22 Scale 1-3) 30 days #90 tabs atorvastatin 80 mg tablet 80 mg PO BEDTIME 30 days #30 tabs 09/21/22 carvedilol 3.125 mg tablet 3.125 mg PO BID 30 days #60 tabs 09/21/22 polyethylene glycol 3350 17 gram 17 g PO DAILY PRN Constipation 5 09/21/22 oral powder packet days #30 ea albuterol sulfate 2.5 mg/3 mL 1 vial inhalation Q6H PRN Wheezing 09/29/22 (0.083 %) solution for nebulization #90 mL albuterol sulfate 90 mcg/actuation 1 puff inhalation Q4H PRN Wheezing 09/29/22 aerosol inhaler (Ventolin HFA) #1 g gabapentin 300 mg capsule 2 cap PO BID #120 caps 09/29/22 lisinopril 20 mg tablet 20 mg PO DAILY #30 tabs 09/29/22 montelukast 10 mg tablet 1 tab PO BEDTIME #30 tabs 09/29/22 umeclidinium 62.5 mcg/actuation 1 puff PO DAILY #1 ea 09/29/22 blister powder for inhalation (Incruse Ellipta) ipratropium 0.5 mg-albuterol 3 mg 3 ml inhalation TID #90 mL 10/14/22 (2.5 mg base)/3 mL nebulization soln oxycodone 5 mg tablet 5 mg PO Q6H PRN pain #7 tabs 10/21/22 furosemide 40 mg tablet 40 mg PO BID #60 tabs 10/27/22 silver-hydrocolloid dressing 1.2 1 ea topical Q OTHER DAY 1 month 11/22/22 %-3.5 X 4 (Aquacel-AG) #10 ea Allergies Allergy/AdvReac Type Severity Reaction Status Date / Time Penicillins [PENICILLINS] Allergy Severe RASH Verified 11/22/22 14:46 amoxicillin [AMOXICILLIN] Allergy Intermediate HIVES Verified 11/22/22 14:46 perflutren [From Definity] AdvReac Back Pain Verified 11/22/22 14:46 Review of Systems Review of Systems: Yes all other systems are reviewed and are negative PMFSH Past Medical History Medical History Asthma Atherosclerotic cardiovascular disease Atrial tachycardia Below-knee amputation of left lower extremity Cellulitis in diabetic foot COPD (chronic obstructive pulmonary disease) Coronary artery disease COVID-19 vaccine series completed Diabetes Diabetic foot infection Diabetic foot infection Diabetic foot ulcer Diabetic toe ulcer Essential hypertension GERD (gastroesophageal reflux disease) Hyperglycemia due to diabetes mellitus Hypertension Ischemic cardiomyopathy Left against medical advice Left against medical advice Osteomyelitis Osteomyelitis 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 PAD (peripheral artery disease) Surgical History History of esophagogastroduodenoscopy (EGD) History of toe surgery (09/22/21) Status post below-knee amputation of left lower extremity (09/20/22) Family History Family History Mother Hx of CABG Sister CAD (coronary artery disease) Social History Social History Household Members: Significant Other and Children Housing: Apartment Do you presently have visiting nurse or other home services: Yes Unable to assess alcohol history related to: Refusing to respond Alcohol intake: never Patient Tobacco Use Status: Tobacco use Unknown Tobacco use type: Cigarette Cigarette Packs Per Day: 0.5 Cigarettes Per Day: 6 Years Smoked: 43 Smoked in Last 30 Days: Yes e-Cigarette/Vaping Use: Currently Using Second Hand Smoke Exposure: Yes Use of substances other than those prescribed or required for medical reasons: No 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 Substance Use Frequency: Chronic Longstanding Advance Directives: Yes Advance Directives on File: Yes Advance Directives Date on File: 09/22/22 Patient : No service: No Current occupational status: disabled Physical Exam ED Vital Signs: Vital Signs - 24 hr 12/05/22 22:27 12/05/22 22:32 12/05/22 22:50 Temperature 97.3 F 98.3 F Pulse Rate 112 H 113 H 111 H Respiratory Rate 13 12 Blood Pressure 128/107 H 128/107 H 136/88 Pulse Oximetry 100 100 Oxygen Delivery Method Nasal Cannula Nasal Cannula Oxygen Flow Rate 2 12/06/22 00:25 12/06/22 01:55 12/06/22 02:08 Temperature 97.5 F Pulse Rate 112 H 111 H Respiratory Rate 20 18 16 Blood Pressure 127/86 123/81 Pulse Oximetry 100 100 Oxygen Delivery Method Nasal Cannula Nasal Cannula Oxygen Flow Rate 2 2 BMI result Body Mass Index 28.2 Appearance: Alert. Oriented X3. No acute distress. Eyes: PERRLA, No Nystagmus ENT: Pharynx normal. Oral Mucosa moist Neck: Normal inspection. Neck supple. CVS: Sinus tachycardia no murmur/rubs. Pulses normal. Respiratory: No respiratory distress. Equal air entry bilateral, no wheezing/rales/rhonchi Abdomen: Soft and nontender. Bowel sounds are present, no mass palpable, no CVA tenderness Skin: Skin warm and dry. Normal skin color. Normal skin turgor. Extremities: Edematous left lower extremity. No calf tenderness in the right leg Neuro: Oriented X 3. No motor deficit. No sensory deficit.No cerebellar signs , cranial nerves II-XII intact Medications Administered Generic Name Dose Route Start Last Admin Trade Name Benjaminq PRN Reason Stop Dose Admin Enoxaparin Sodium 40 mg 12/06/22 02:30 12/06/22 03:02 Enoxaparin Sodium 40 Mg/0.4 Ml Syringe SUBCUT 40 mg BEDTIME MÓNICA Administration Discontinued Medications Generic Name Dose Route Start Last Admin Trade Name Benjaminq PRN Reason Stop Dose Admin Guaifenesin/Codeine Phosphate 10 ml 12/06/22 02:03 12/06/22 02:13 Guaifen/Codeine Sf 200/20/10ml 10 Ml Liquid PO 12/06/22 02:04 10 ml ONCE ONE Administration Vancomycin HCl 1,000 mg/ 535 mls @ 267.5 mls/hr 12/05/22 23:45 12/06/22 03:30 Vancomycin HCl 750 mg/ Sodium IV 12/06/22 01:44 Infused Chloride ONCE ONE Infusion Piperacillin Sod/Tazobactam 50 mls @ 100 mls/hr 12/05/22 23:53 12/06/22 02:37 Sod 3.375 gm/ Sodium Chloride IV 12/06/22 00:22 Infused ONCE ONE Infusion Sodium Chloride 1,000 mls @ 999 mls/hr 12/06/22 02:04 12/06/22 03:26 Ns IV 12/06/22 03:04 Infused .Q1H1M ONE Infusion Morphine Sulfate 4 mg 12/06/22 01:42 12/06/22 02:08 Morphine Sulfate 4 Mg/Ml Cartridge IVPUSH 12/06/22 01:43 4 mg ONCE ONE Administration Protocol Ondansetron HCl 4 mg 12/06/22 01:42 12/06/22 02:08 Ondansetron Hcl 4 Mg/2 Ml Vial IVPUSH 12/06/22 01:43 4 mg ONCE ONE Administration Medical Decision Making Medical Decision Making MDM Narrative: Patient with COPD , CAD recent BKA comes here for cough with blood-tinged sputum and nonhealing wound of left BKA workup showed she is positive for COVID- 19 chest x-ray showed multifocal pneumonia will give IV antibiotic vanco and Zosyn for nonhealing left BKA with cellulitis supportive treatment for COVID IV Lasix for CHF Differential Diagnosis Differential Diagnoses: The differential diagnosis associated with the presentation includes COPD/CHF/non-STEMI/sepsis Consult Healthcare Provider Management of the patient was discussed with: Hospitalist Lab Data MDM Lab Attestation statement: I reviewed the patient's lab results. 12/06/22 01:04 12/06/22 01:03 Labs: Lab Results 12/06/22 12/06/22 12/06/22 Range/Units 01:03 01:03 01:04 WBC 6.7 (4.8-10.8) X10*3/uL RBC 5.06 (4.20-5.50) X10*6/uL Hgb 9.5 L (12.0-16.0) g/dl Hct 32.9 L (37.0-47.0) % MCV 65.0 L (80.0-98.0) fL MCH 18.8 L (27.0-33.0) pg MCHC 28.9 L (31.0-35.0) g/dl RDW 22.1 H (11.0-16.0) % Plt Count 187 D (160-400) X10*3/uL MPV Not Reportable Immature Gran % (Auto) 0.3 (0.0-0.4) % Neut % (Auto) 70.4 (45-73) % Lymph % (Auto) 17.9 L (20-40) % [place] % (Auto) 9.4 (2-11) % Eos % (Auto) 1.3 (0-4) % Baso % (Auto) 0.7 (0-2) % Lymph # (Auto) 1.2 (1.2-4.9) X10*3/uL [place] # (Auto) 0.6 (0.1-1.2) X10*3/uL Eos # (Auto) 0.1 (0.0-0.4) X10*3/uL Baso # (Auto) 0.1 (0.0-0.2) X10*3/uL Abs Immat Gran (auto) 0.02 (0.00-0.03) X10*3/uL Absolute Neuts (auto) 4.7 (2.0-8.3) x10*3/uL Absolute Nucleated RBC 0.020 H (0.0-0.012) X10*3/uL Nucleated RBC % (auto) 0.3 H (0.0-0.2) /100WBC Sodium 137 (135-145) mmol/L Potassium 4.5 D (3.3-5.1) mmol/L Chloride 100 (96-108) mmol/L Carbon Dioxide 25 (22-29) mmol/L Anion Gap 17 (12-20) BUN 14 (9-16) mg/dL Creatinine 0.89 (0.5-1.4) mg/dL Estim Creat Clear Calc 71.1 Estimated GFR > 60 Random Glucose 213 H (60-115) mg/dL Lactic Acid 3.0 H* (0.5-2.0) mmol/L Calcium 9.2 D (8.4-10.2) mg/dL Total Bilirubin 4.3 H (0.0-1.0) mg/dL AST 15 (5-31) U/L ALT 45 H (0-31) U/L Alkaline Phosphatase 124 H (39-117) U/L C-Reactive Protein 7.70 H (< or = 0.50) mg/dL B-Natriuretic Peptide (<100) pg/mL Total Protein 6.0 L (6.5-8.0) g/dL Albumin 3.2 L (3.5-5.0) g/dL COVID-19 (KATHLEEN) (Negative) COVID-19 Clin Com 12/06/22 12/06/22 Range/Units 01:04 01:48 WBC (4.8-10.8) X10*3/uL RBC (4.20-5.50) X10*6/uL Hgb (12.0-16.0) g/dl Hct (37.0-47.0) % MCV (80.0-98.0) fL MCH (27.0-33.0) pg MCHC (31.0-35.0) g/dl RDW (11.0-16.0) % Plt Count (160-400) X10*3/uL MPV Immature Gran % (Auto) (0.0-0.4) % Neut % (Auto) (45-73) % Lymph % (Auto) (20-40) % [place] % (Auto) (2-11) % Eos % (Auto) (0-4) % Baso % (Auto) (0-2) % Lymph # (Auto) (1.2-4.9) X10*3/uL [place] # (Auto) (0.1-1.2) X10*3/uL Eos # (Auto) (0.0-0.4) X10*3/uL Baso # (Auto) (0.0-0.2) X10*3/uL Abs Immat Gran (auto) (0.00-0.03) X10*3/uL Absolute Neuts (auto) (2.0-8.3) x10*3/uL Absolute Nucleated RBC (0.0-0.012) X10*3/uL Nucleated RBC % (auto) (0.0-0.2) /100WBC Sodium (135-145) mmol/L Potassium (3.3-5.1) mmol/L Chloride (96-108) mmol/L Carbon Dioxide (22-29) mmol/L Anion Gap (12-20) BUN (9-16) mg/dL Creatinine (0.5-1.4) mg/dL Estim Creat Clear Calc Estimated GFR Random Glucose (60-115) mg/dL Lactic Acid (0.5-2.0) mmol/L Calcium (8.4-10.2) mg/dL Total Bilirubin (0.0-1.0) mg/dL AST (5-31) U/L ALT (0-31) U/L Alkaline Phosphatase (39-117) U/L C-Reactive Protein (< or = 0.50) mg/dL B-Natriuretic Peptide 3727 H (<100) pg/mL Total Protein (6.5-8.0) g/dL Albumin (3.5-5.0) g/dL COVID-19 (KATHLEEN) Positive A (Negative) COVID-19 Clin Com See Note Independent Interpretation I performed an independent interpretation of an: EKG Interpretation: Sinus tachycardia heart rate 112 beats per minute with occasional PVCs poor progression of R-wave no acute ischemia Discharge Plan Discharge Clinical Impression: Pneumonia, Infected wound, COVID-19 Patient Disposition: Admitted As Inpatient
[2022-12-06] VITALS (10 sets, daily range): BP systolic 120–134; BP diastolic 80–86; PULSE 77–112; RESP 14–20; TEMP 36.4–36.9; O2SAT 98–100
--- NOTE | 2022-12-06 00:03 | PC.NURSE ---
patient is a difficult stick patient doctor is aware patient has antibiotic therapy due to patient has a history of drug abuse from IV use but needs to be ultrasound or doctor will decide further what to do next patient will continue to be monitored for safety
--- NOTE | 2022-12-06 00:04 | PC.NURSE ---
has been made aware by staff and nurse charge rn that the pt is a difficult stick and staff has not been able to successfully place an IV. Per he will place an ultrasound guided IV, obtain necessary labs and then ABX therapy will begin
[2022-12-06 01:13] LABS: Basophils Absolute Auto 0.1 X10*3/uL (0.0-0.2); Basophils Percent Auto 0.7 % (0-2); NRBC Pct Auto 0.3 /100WBC (0.0-0.2); PLT ABN DIST 1; Platelet Count 187 X10*3/uL (160-400); SCAN SMEAR FLAG 1
[2022-12-06 01:14] LABS: Eosinophils Absolute Auto 0.1 X10*3/uL (0.0-0.4); Eosinophils Percent Auto 1.3 % (0-4); Hematocrit 32.9 % (37.0-47.0); Hemoglobin 9.5 g/dl (12.0-16.0); Imm Gran Abs Auto 0.02 X10*3/uL (0.00-0.03); Imm Gran Pct Auto 0.3 % (0.0-0.4); Lymphocytes Absolute Auto 1.2 X10*3/uL (1.2-4.9); Lymphocytes Percent Auto 17.9 % (20-40); Mean Corpuscular HGB Conc 28.9 g/dl (31.0-35.0); Mean Corpuscular Hemoglobin 18.8 pg (27.0-33.0); Monocytes Absolute Auto 0.6 X10*3/uL (0.1-1.2); Monocytes Percent Auto 9.4 % (2-11); Neutrophils Absolute Auto 4.7 x10*3/uL (2.0-8.3); Neutrophils Percent Auto 70.4 % (45-73); Red Blood Count 5.06 X10*6/uL (4.20-5.50); Red Cell Distribution Width 22.1 % (11.0-16.0); White Blood Count 6.7 X10*3/uL (4.8-10.8)
[2022-12-06 01:16] LABS: MANUAL DIFF FLAG NO
[2022-12-06] MEDS: vancomycin HCL 1,000 MG, vancomycin HCL 750 MG in 0.9 % Sodium Chloride 500 ML 267.5 MG IV (01:27)
[2022-12-06 01:31] LABS: Alanine Aminotransferase 45 U/L (0-31); Albumin Level 3.2 g/dL (3.5-5.0); Alkaline Phosphatase 124 U/L (39-117); Anion Gap 17 (12-20); Aspartate Amino Transferase 15 U/L (5-31); Bilirubin Total 4.3 mg/dL (0.0-1.0); Blood Urea Nitrogen 14 mg/dL (9-16); Calcium 9.2 mg/dL (8.4-10.2); Carbon Dioxide 25 mmol/L (22-29); Chloride 100 mmol/L (96-108); Creatinine Clr Calc Pharmacy 71.1; Estimated Glomerular Filt Rate > 60; Glucose Random 213 mg/dL (60-115); Potassium 4.5 mmol/L (3.3-5.1); Sodium 137 mmol/L (135-145)
[2022-12-06] MEDS: Piperacillin Sodium/Tazobactam 3.375 GM in 0.9 % Sodium Chloride 50 ML IV ×2 (02:05→08:30)
[2022-12-06] MEDS: ondansetron HCL 4 MG/2 ML VIAL IVPUSH (02:08)
[2022-12-06] MEDS: Morphine Sulfate 4 MG/ML CARTRIDGE IVPUSH ×2 (02:08→09:29)
[2022-12-06 02:12] LABS: COVID-19 Test Positive (Negative); IDNOW Serial# 08D9AD1C
[2022-12-06] MEDS: 0.9 % Sodium Chloride 1,000 ML 999 ML IV (02:13)
[2022-12-06] MEDS: guaiFEN/Codeine SF 200/20/10ML 10 ML LIQUID PO (02:13)
--- NOTE | 2022-12-06 02:27 | P.HPHOSP_ITS ---
History of Present Illness Date of Service: 12/06/22 Chief Complaint: non-healingwound Keisha is a 52-year-old female with a past medical history of COPD, CHF, diabetes, neuropathy, HTN, CAD status post LAD stent, PVD status post left BKA who had left against medical advice on 12/02 after being admitted for evaluation of a nonhealing BKA wound. Patient states that she came back today because her wound is not healing, she is not doing too well. She had left AMA at the discretion of her daughter who she says is her health car proxy and forced her to leave. She did not go to [facility]. Patient reports that she still has drainage from her BKA wound, and now has a cough that is productive, has Orthopnea and PND, denies any fever chills, denies any chest pain, no urinary symptoms, she has chronic lower extremity edema on the right that has not changed. On arrival to the ED patient has a heart rate of 112, otherwise stable Labs are significant for WBC count of 6.7, hemoglobin of 9.5 which is around her baseline, hematocrit of 32.9, ESR of for, lactic acid of 3.0 which improved after IV fluids, BNP of 3727 Chest x-ray shows mild patchy bibasilar opacities increased from prior and trace pleural effusion, concerning for multifocal pneumonia Started on IV antibiotics and will be admitted for further management Review of Systems Review of Systems: Yes all other systems are reviewed and are negative [facility] Medical History Asthma Atherosclerotic cardiovascular disease Atrial tachycardia Below-knee amputation of left lower extremity Cellulitis in diabetic foot COPD (chronic obstructive pulmonary disease) Coronary artery disease COVID-19 vaccine series completed Diabetes Diabetic foot infection Diabetic foot infection Diabetic foot ulcer Diabetic toe ulcer Essential hypertension GERD (gastroesophageal reflux disease) Hyperglycemia due to diabetes mellitus Hypertension Ischemic cardiomyopathy Left against medical advice Left against medical advice Osteomyelitis Osteomyelitis 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 PAD (peripheral artery disease) Family History Mother Hx of CABG Sister CAD (coronary artery disease) Surgical History History of esophagogastroduodenoscopy (EGD) History of toe surgery (09/22/21) Status post below-knee amputation of left lower extremity (09/20/22) Social History Household Members: Significant Other and Children Housing: Apartment Do you presently have visiting nurse or other home services: Yes Unable to assess alcohol history related to: Refusing to respond Alcohol intake: never Patient Tobacco Use Status: Tobacco use Unknown Tobacco use type: Cigarette Cigarette Packs Per Day: 0.5 Cigarettes Per Day: 6 Years Smoked: 43 Smoked in Last 30 Days: Yes e-Cigarette/Vaping Use: Currently Using Second Hand Smoke Exposure: Yes Use of substances other than those prescribed or required for medical reasons: No 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 Substance Use Frequency: Chronic Longstanding Advance Directives: Yes Advance Directives on File: Yes Advance Directives Date on File: 09/22/22 Patient : No service: No Current occupational status: disabled Meds Allergies Allergy/AdvReac Type Severity Reaction Status Date / Time Penicillins [PENICILLINS] Allergy Severe RASH Verified 11/22/22 14:46 amoxicillin [AMOXICILLIN] Allergy Intermediate HIVES Verified 11/22/22 14:46 perflutren [From Definity] AdvReac Back Pain Verified 11/22/22 14:46 Active Medications: Current Medications Sodium Chloride (Ns) 1,000 mls @ 999 mls/hr IV .Q1H1M ONE Stop: 12/06/22 03:04 Last Admin: 12/06/22 02:13 Dose: 999 mls/hr Vancomycin HCl 1,250 mg/ (Sodium Chloride) 250 mls @ 166.667 mls/hr IV Q24H [facility] Piperacillin Sod/Tazobactam (Sod 3.375 gm/ Sodium Chloride) 50 mls @ 100 mls/hr IV Q6H [facility] Pharmacy Consult (Consult Rx Vancomycin Dosing) 1 each MISCELLANE DAILY PRN PRN Reason: Consult order Pharmacy Consult (Consult Rx Vancomycin Dosing) 1 each MISCELLANE DAILY PRN PRN Reason: Consult order Home Medications Medication Instructions Recorded Confirmed Last Taken Type clopidogrel 75 mg tablet 75 mg PO DAILY 11/24/22 12/02/22 Unknown History glipizide 5 mg-metformin 500 mg 2 tab PO BID 11/24/22 12/01/22 Unknown History tablet morphine 15 mg tablet,extended 15 mg PO Q12H PAIN 11/26/22 12/01/22 Unknown History release nicotine 21 mg/24 hr daily 1 patch topical DAILY 11/26/22 12/01/22 Unknown History transdermal patch aspirin 81 mg tablet,delayed 81 mg PO DAILY 12/01/22 12/01/22 Unknown History release Physical Exam Vital Signs and Narrative: Vital Signs: Last Vital Signs Temp 97.5 F 12/06/22 00:25 Pulse 111 H 12/06/22 01:55 Resp 16 12/06/22 02:08 BP 123/81 12/06/22 01:55 Pulse Ox 100 12/06/22 01:55 O2 Del Method Nasal Cannula 12/06/22 01:55 O2 Flow Rate 2 12/06/22 01:55 Oxygen Flow Rate 2 12/05/22 22:32 BMI result Body Mass Index 28.2 Const: General: cooperative and no acute distress Orientation/consciousness: patient oriented x3 Eyes: General: appearance normal, both eyes and all related structures Resp: Other: Crackles bilaterally Effort & Inspection: normal respiratory effort Cardio: Rate: regular rate Rhythm: regular rhythm GI: Palpation (GI): Soft to palpation Auscultation: normal bowel sounds Skin: General skin exam: no rashes or lesions noted Neuro: General: patient oriented x3 Cognition (Neuro): normal cognition Extrem: Other: 3+ lower extremity edema on the right Left BKA, with open wound, with serosanguineous drainage, and film covering opening of the wound. A seen in the picture Results Labs 12/06/22 01:04 12/06/22 01:03 Labs: Laboratory Results - last 24 hr 12/06/22 12/06/22 12/06/22 01:03 01:03 01:04 MCV 65.0 L MCH 18.8 L MCHC 28.9 L RDW 22.1 H Plt Count 187 D MPV Not Reportable Immature Gran % (Auto) 0.3 Neut % (Auto) 70.4 Lymph % (Auto) 17.9 L Harper % (Auto) 9.4 Eos % (Auto) 1.3 Baso % (Auto) 0.7 Lymph # (Auto) 1.2 Harper # (Auto) 0.6 Eos # (Auto) 0.1 Baso # (Auto) 0.1 Abs Immat Gran (auto) 0.02 Absolute Neuts (auto) 4.7 Absolute Nucleated RBC 0.020 H Nucleated RBC % (auto) 0.3 H Anion Gap 17 Estim Creat Clear Calc 71.1 Estimated GFR > 60 Random Glucose 213 H Lactic Acid 3.0 H* Calcium 9.2 D Total Bilirubin 4.3 H AST 15 ALT 45 H Alkaline Phosphatase 124 H Total Protein 6.0 L Albumin 3.2 L COVID-19 (KATHLEEN) COVID-19 Clin Com 12/06/22 01:48 MCV MCH MCHC RDW Plt Count MPV Immature Gran % (Auto) Neut % (Auto) Lymph % (Auto) Harper % (Auto) Eos % (Auto) Baso % (Auto) Lymph # (Auto) Harper # (Auto) Eos # (Auto) Baso # (Auto) Abs Immat Gran (auto) Absolute Neuts (auto) Absolute Nucleated RBC Nucleated RBC % (auto) Anion Gap Estim Creat Clear Calc Estimated GFR Random Glucose Lactic Acid Calcium Total Bilirubin AST ALT Alkaline Phosphatase Total Protein Albumin COVID-19 (KATHLEEN) Positive A COVID-19 Clin Com See Note Imaging Radiologist's Impressions: Impressions Chest X-Ray 12/05/22 23:25 IMPRESSION: Mild patchy bibasilar opacities, increased from prior, and trace pleural effusions. Appearance raises concern for developing multifocal pneumonia in the proper clinical setting. Assessment and Plan (1) Infected wound: Status: Acute (2) Wound dehiscence: Status: Acute (3) Non-healing amputation site: Status: Acute (4) Pneumonia: Status: Acute (5) Acute CHF (congestive heart failure): Status: Acute (6) COVID-19: Status: Acute Plan his is a 52-year-old female with past medical history of CAD, PVD status post left BKA, CHF, presents the hospital with complaints of nonhealing wound found to have multiple acute comorbidities # infected nonhealing amputation site with wound dehiscence - with start IV antibiotics - general surgery consulted - follow cultures # acute CHF exacerbation - has elevated BNP significantly higher than her usual baseline, lower extremity edema on the right, evidence of fluid overload with pulmonary effusion on chest x-ray, orthopnea and PND - will treat with IV Lasix - strict I&O, daily weight, low-sodium diet - monitor for improvement of symptoms - Bhavani p.r.n. # COPD - no wheezing, but has increased cough and sputum production likely secondary to pneumonia - will treat with DuoNeb p.r.n. as well as scheduled - monitor symptoms # acute pneumonia - likely viral in the setting of COVID-19 positive results - patient on antibiotics for above - monitor respiratory symptoms # diabetes - hold oral antihyperglycemics - start on low-dose sliding scale insulin # history of CAD - no chest pain, - continue Plavix and aspirin # hypertension - home antihypertensives DVT prophylaxis: Lovenox Given patient's need for IV antibiotics for infected wound patient will require minimum 2 nights inpatient hospital stay for further management and monitor Time Spent With Patient Time: Total time managing care of this patient today ____ minutes. Quality Stroke Does the patient have a stroke diagnosis?: No VTE Prior VTE?: No VTE Risk Level:: Medical - moderate - high VTE Device Contraindication: N/A - Device Ordered VTE Drug Contraindication: N/A - Med Ordered
[2022-12-06 02:36] LABS: B Type Natriuretic Peptide 3727 pg/mL (<100)
[2022-12-06] MEDS: Enoxaparin Sodium 40 MG/0.4 ML SYRINGE SUBCUT (03:02)
[2022-12-06 03:09] LABS: Reflex Lactate? Lactic Acid Added
[2022-12-06 03:19] LABS: Erythrocyte Sedimentation Rate 4 MM/HR (0-20)
[2022-12-06 04:06] LABS: ~Lactic Acid-LAB USE ONLY 2.2 mmol/L (0.5-2.0)
--- NOTE | 2022-12-06 05:27 | PC.NURSE ---
patient in bed with eyes closed patient showing no distress at this time patient will continue to be monitored for safety
[2022-12-06 05:50] LABS: Reflex Lactate? 2 Y
[2022-12-06 06:02] LABS: Hemoglobin 8.9 g/dl (12.0-16.0); Imm Gran Abs Auto 0.04 X10*3/uL (0.00-0.03); SCAN SMEAR FLAG 1
[2022-12-06 06:04] LABS: Basophils Absolute Auto 0.1 X10*3/uL (0.0-0.2); Basophils Percent Auto 0.8 % (0-2); Eosinophils Absolute Auto 0.1 X10*3/uL (0.0-0.4); Eosinophils Percent Auto 1.7 % (0-4); Hematocrit 31.2 % (37.0-47.0); Imm Gran Pct Auto 0.7 % (0.0-0.4); Lymphocytes Absolute Auto 1.4 X10*3/uL (1.2-4.9); Lymphocytes Percent Auto 22.8 % (20-40); MANUAL DIFF FLAG SCAN; Mean Corpuscular HGB Conc 28.5 g/dl (31.0-35.0); Mean Corpuscular Hemoglobin 18.7 pg (27.0-33.0); Mean Corpuscular Volume 65.4 fL (80.0-98.0); Monocytes Absolute Auto 0.7 X10*3/uL (0.1-1.2); Monocytes Percent Auto 11.6 % (2-11); NRBC Pct Auto 0.5 /100WBC (0.0-0.2); Neutrophils Absolute Auto 3.8 x10*3/uL (2.0-8.3); Neutrophils Percent Auto 62.4 % (45-73); PLT CLUMP 1; Red Blood Count 4.77 X10*6/uL (4.20-5.50); Red Cell Distribution Width 21.6 % (11.0-16.0)
[2022-12-06 06:08] LABS: PLT ABN DIST 1
[2022-12-06 06:21] LABS: Anion Gap 16 (12-20); Blood Urea Nitrogen 13 mg/dL (9-16); Calcium 8.5 mg/dL (8.4-10.2); Carbon Dioxide 23 mmol/L (22-29); Chloride 103 mmol/L (96-108); Creatinine Clr Calc Pharmacy 82.3; Estimated Glomerular Filt Rate > 60; Glucose Random 163 mg/dL (60-115); Potassium 4.6 mmol/L (3.3-5.1); Sodium 137 mmol/L (135-145)
[2022-12-06 06:33] LABS: ~Lactic Acid-LAB USE ONLY 1.8 mmol/L (0.5-2.0)
[2022-12-06 06:46] LABS: Platelet Count 170 X10*3/uL (160-400); White Blood Count 6.1 X10*3/uL (4.8-10.8)
[2022-12-06 06:47] LABS: SLIDE REVIEW VERIFIED
[2022-12-06] MEDS: Albuterol/Iprat 2.5/0.5MG 3 ML AMPUL.NEB INHALE (07:04)
--- NOTE | 2022-12-06 07:23 | PC.NURSE ---
Resumed care of patient, resp at bedside obtaining ABG/breathing tx. Covid + precautions in place, pt reports her breathing is feeling better. Awaiting bed placement.
[2022-12-06 07:37] LABS: Glucose, Whole Blood 161 mg/dL (60-115)
[2022-12-06] MEDS: Furosemide 40 MG/4 ML VIAL IVPUSH (08:29)
[2022-12-06] MEDS: Insulin Lispro 100 UNIT/ML 3 ML VIAL SUBCUT ×2 (08:29→13:14)
[2022-12-06] MEDS: dexAMETHasone 6 MG TABLET PO (08:29)
[2022-12-06] MEDS: 0.9 % Sodium Chloride Flush 3 ML SYRINGE IVFLUSH (08:30)
--- NOTE | 2022-12-06 08:41 | PHA.PROG ---
Admission Date/Time: December 06, 2022 02:25 Indication:SKIN Weight in k.2 kg Adjusted body weight in Kg: [place] body weight in Kg: Obesity Dosing Indication % IBW: Serum Creatinine - Last 168 Hours 12/06/22 12/06/22 01:03 05:36 Creatinine 0.89 0.77 Estimated CrCl and GFR - Last 168 Hours 12/06/22 12/06/22 01:03 05:36 Estim Creat Clear Calc 71.1 82.3 Estimated GFR > 60 > 60 Vancomycin Loading Dose: 1750 Current Vancomycin Dosing Regimen: 1000 Q12H Vancomycin Monitoring using AUC goal of 400 - 600 range with trough as surrogate marker: AUC 516, TROUGH 16 Date and Time for next Vancomycin Level to be drawn: 12/07 @1100 Pharmacist Comments on Vancomycin Plan: Vancomycin dosing will take advantage of [employer] as a clinical decision support tool that uses Bayesian modeling to calculate individual patient's pharmacokinetic parameters and forecast the patient's drug concentration time course with the target goal AUC 24 range of 400 - 600 mg/L/hr.
--- NOTE | 2022-12-06 09:38 | PHA.MEDREC ---
Pharmacy Consult ? Medication Reconciliation Medication list obtained from last ADM ( 12/02/22 ) .Pharmacy has completed the medication reconciliation.
--- NOTE | 2022-12-06 09:46 | MHC.EDTECH ---
Incontinence care completed on pt at this time. New linens placed on bed. Transitioned pt to bedside commode. Call pires within reach
--- NOTE | 2022-12-06 10:04 | MHC.CM.PN ---
Addendum entered by Camille Frankel 12/06/22 11:46: Received notification from [facility] that patient is active with their agency. Original Note: Attempted to meet with patient in regards to discharge planning. Nursing care currently being provided. Patient is well known to due to previous admissions. Patient was d/c'd from [facility] on 11/27. At that time it was thought patient would go home with [facility] However, patient has [employer] [place] and [facility] is not contracted with them. Patient has been active with [facility] [employer] [facility] in the past. Referral made via [employer] to see if patient is active with their agency. Continue to monitor for d/c needs.
--- NOTE | 2022-12-06 12:05 | HO.PM.IMPN ---
Subjective Subjective Date of Service: 12/06/22 Interval History: seen and examined this morning follow up for abdominal pain, elevated LFTs still reporting abdominal pain, but primarily lower abdomen Review of Systems Review of Systems: Yes all other systems are reviewed and are negative Constitutional Constitutional: Denies chills and Denies fever(s) Cardiovascular Cardiovascular: Denies chest pain, Denies palpitations and Denies dyspnea Respiratory Respiratory: Denies cough and Denies dyspnea Gastrointestinal Gastrointestinal: Reports abdominal pain, Denies nausea and Denies vomiting Endocrine Endocrine: Denies palpitations Physical Exam Vital Signs: Vital Signs: Last Vital Signs Temp 98.4 F 12/06/22 02:52 Pulse 101 H 12/06/22 09:35 Resp 16 12/06/22 09:35 BP 134/85 12/06/22 05:42 Pulse Ox 98 12/06/22 09:35 O2 Del Method Nasal Cannula 12/06/22 09:35 O2 Flow Rate 2 12/06/22 09:35 Oxygen Flow Rate 2 12/05/22 22:32 BMI result Body Mass Index 28.2 Objective Data Active Medications Acetaminophen (Acetaminophen 325 Mg Tablet) 650 mg PO Q6H PRN PRN Reason: Pain, Mild (Pain Scale 1-3) Albuterol/Ipratropium (Albuterol/Iprat 2.5/0.5mg 3 Ml Ampul.Neb) 3 ml INHALE RQ4H PRN PRN Reason: Shortness of Breath/Wheezing Albuterol/Ipratropium (Albuterol/Iprat 2.5/0.5mg 3 Ml Ampul.Neb) 3 ml INHALE RQ4H WHILE AWAKE [facility] Last Admin: 12/06/22 07:04 Dose: 3 ml Documented By: SANIYA Dexamethasone (Dexamethasone 6 Mg Tablet) 6 mg PO DAILY [facility] Last Admin: 12/06/22 08:29 Dose: 6 mg Documented By: BEBETO Dextrose (Dextrose 50 % 25 Gm/50 Ml Syringe) 25 gm IVPUSH Q15M PRN; Protocol PRN Reason: per Hypoglycemia Standing Ord. Enoxaparin Sodium (Enoxaparin Sodium 40 Mg/0.4 Ml Syringe) 40 mg SUBCUT BEDTIME [facility] Last Admin: 12/06/22 03:02 Dose: 40 mg Documented By: AMERICO Furosemide (Furosemide 40 Mg/4 Ml Vial) 40 mg IVPUSH BID@0900,1800 [facility]; Protocol Last Admin: 12/06/22 08:29 Dose: 40 mg Documented By: BEBETO Glucose (Glucose Gel 15 Gm Gel..Gram.) 15 gm PO Q15M PRN; Protocol PRN Reason: per Hypoglycemia Standing Ord. Piperacillin Sod/Tazobactam (Sod 3.375 gm/ Sodium Chloride) 50 mls @ 100 mls/hr IV Q6H [facility] Last Infusion: 12/06/22 09:47 Dose: 0 mls/hr Documented By: BEBETO Vancomycin HCl 1,000 mg/ (Sodium Chloride) 270 mls @ 270 mls/hr IV Q12H [facility] Insulin Human Lispro (Insulin Lispro 100 Unit/Ml 3 Ml Vial) 0 unit SUBCUT QIDACHS [facility]; Protocol Last Admin: 12/06/22 08:29 Dose: 2 unit Documented By: BEBETO Morphine Sulfate (Morphine Sulfate 4 Mg/Ml Cartridge) 4 mg IVPUSH Q4H PRN; Protocol PRN Reason: Pain, Severe (Pain Scale 7-10) Last Admin: 12/06/22 09:29 Dose: 4 mg Documented By: BEBETO Ondansetron HCl (Ondansetron Hcl 4 Mg/2 Ml Vial) 4 mg IVPUSH Q8H PRN PRN Reason: Nausea and Vomiting Pharmacy Consult (Consult Rx Vancomycin Dosing) 1 each MISCELLANE DAILY PRN PRN Reason: Consult order Pharmacy Consult (Consult Rx Perform Med Rec) 1 each MISCELLANE ONCE PRN PRN Reason: Consult order Sodium Chloride (0.9 % Sodium Chloride Flush 3 Ml Syringe) 3 ml IVFLUSH QSHIFT [facility] Last Admin: 12/06/22 08:30 Dose: 3 ml Documented By: BEBETO Labs 12/06/22 05:36 12/06/22 05:36 Labs: Laboratory Results - last 24 hr 12/06/22 12/06/22 12/06/22 01:03 01:03 01:04 MCV 65.0 L MCH 18.8 L MCHC 28.9 L RDW 22.1 H Plt Count 187 D MPV Not Reportable Immature Gran % (Auto) 0.3 Neut % (Auto) 70.4 Lymph % (Auto) 17.9 L Hanson % (Auto) 9.4 Eos % (Auto) 1.3 Baso % (Auto) 0.7 Lymph # (Auto) 1.2 Hanson # (Auto) 0.6 Eos # (Auto) 0.1 Baso # (Auto) 0.1 Abs Immat Gran (auto) 0.02 Absolute Neuts (auto) 4.7 Absolute Nucleated RBC 0.020 H Nucleated RBC % (auto) 0.3 H Smear Tech's Comments ESR Anion Gap 17 Estim Creat Clear Calc 71.1 Estimated GFR > 60 POC Glucose Random Glucose 213 H Lactic Acid 3.0 H* Lactic Acid F/U @ 2Hr Lactic Acid F/U @ 4Hr Calcium 9.2 D Total Bilirubin 4.3 H AST 15 ALT 45 H Alkaline Phosphatase 124 H C-Reactive Protein 7.70 H B-Natriuretic Peptide Total Protein 6.0 L Albumin 3.2 L COVID-19 (KATHLEEN) [employer] 12/06/22 12/06/22 12/06/22 01:04 01:48 02:43 MCV MCH MCHC RDW Plt Count MPV Immature Gran % (Auto) Neut % (Auto) Lymph % (Auto) Hanson % (Auto) Eos % (Auto) Baso % (Auto) Lymph # (Auto) Hanson # (Auto) Eos # (Auto) Baso # (Auto) Abs Immat Gran (auto) Absolute Neuts (auto) Absolute Nucleated RBC Nucleated RBC % (auto) Smear Tech's Comments ESR 4 Anion Gap Estim Creat Clear Calc Estimated GFR POC Glucose Random Glucose Lactic Acid Lactic Acid F/U @ 2Hr Lactic Acid F/U @ 4Hr Calcium Total Bilirubin AST ALT Alkaline Phosphatase C-Reactive Protein B-Natriuretic Peptide 3727 H Total Protein Albumin COVID-19 (KATHLEEN) Positive A COVID-19 [employer] See Note 12/06/22 12/06/22 12/06/22 03:48 05:36 05:36 MCV 65.4 L MCH 18.7 L MCHC 28.5 L RDW 21.6 H Plt Count 170 MPV Not Reportable Immature Gran % (Auto) 0.7 H Neut % (Auto) 62.4 Lymph % (Auto) 22.8 Hanson % (Auto) 11.6 H Eos % (Auto) 1.7 Baso % (Auto) 0.8 Lymph # (Auto) 1.4 Hanson # (Auto) 0.7 Eos # (Auto) 0.1 Baso # (Auto) 0.1 Abs Immat Gran (auto) 0.04 H Absolute Neuts (auto) 3.8 Absolute Nucleated RBC 0.030 H Nucleated RBC % (auto) 0.5 H Smear Tech's Comments VERIFIED ESR Anion Gap 16 Estim Creat Clear Calc 82.3 Estimated GFR > 60 POC Glucose Random Glucose 163 H Lactic Acid Lactic Acid F/U @ 2Hr 2.2 H* Lactic Acid F/U @ 4Hr Calcium 8.5 D Total Bilirubin AST ALT Alkaline Phosphatase C-Reactive Protein B-Natriuretic Peptide Total Protein Albumin COVID-19 (KATHLEEN) COVID-19 Clin Com 12/06/22 12/06/22 06:08 07:33 MCV MCH MCHC RDW Plt Count MPV Immature Gran % (Auto) Neut % (Auto) Lymph % (Auto) Hanson % (Auto) Eos % (Auto) Baso % (Auto) Lymph # (Auto) Hanson # (Auto) Eos # (Auto) Baso # (Auto) Abs Immat Gran (auto) Absolute Neuts (auto) Absolute Nucleated RBC Nucleated RBC % (auto) Smear Tech's Comments ESR Anion Gap Estim Creat Clear Calc Estimated GFR POC Glucose 161 H Random Glucose Lactic Acid Lactic Acid F/U @ 2Hr Lactic Acid F/U @ 4Hr 1.8 Calcium Total Bilirubin AST ALT Alkaline Phosphatase C-Reactive Protein B-Natriuretic Peptide Total Protein Albumin COVID-19 (KATHLEEN) COVID-19 Clin Com Assessment and Plan Time Spent With Patient Time: Total time managing care of this patient today ____ minutes. Quality Stroke Does the patient have a stroke diagnosis?: No VTE Prior VTE?: No VTE Risk Level:: Medical - moderate - high VTE Device Contraindication: N/A - Device Ordered VTE Drug Contraindication: N/A - Med Ordered
--- NOTE | 2022-12-06 12:58 | PM.CNGS ---
History of Present Illness Consult details Consult date: 12/06/22 Requesting physician: Tanner Best Narrative: 52 year old female with PMH of COPD, congestive heart failure with reduced ejection fraction, [id number] diabetes mellitus with neuropathy, hypertension, CAD status post LAD stent, peripheral vascular disease who underwent left BKA in September 2022 for nonhealing chronic ulcer of the heel. She had been doing fairly well post operatively however fell onto the stump in early November and developed an opening. She was seen in the office and silver alginate dressing changes by VNA every other day were initiated. She presented to the ED last week for worsening pain, redness, swelling and increasing drainage from the stump and was admitted to the medical service for treatment of cellulitis but left AMA stating she was going to [facility]. She came back to the ED yesterday for the drainage and redness of her stump and a new cough. She was found to be tachycardic with a lactic acidosis and BNP of 3727. CXR was concerning for multifocal pneumonia. She was admitted to medicine and started on IV antibiotics. Surgery was consulted for the left BKA wound. Review of Systems Constitutional: Constitutional: Denies chills and Denies fever(s) ENT: Denies dizziness Cardiovascular: Cardiovascular: Denies chest pain and Reports dyspnea Respiratory: Respiratory: Reports cough and Reports dyspnea Gastrointestinal: Gastrointestinal: Reports abdominal pain (lower abd ), Denies nausea and Denies vomiting Integumentary/Breasts: Skin/Breast: Denies rash Neurologic: Denies dizziness PMFSH Past Medical History Medical History Asthma Atherosclerotic cardiovascular disease Atrial tachycardia Below-knee amputation of left lower extremity Cellulitis in diabetic foot COPD (chronic obstructive pulmonary disease) Coronary artery disease COVID-19 vaccine series completed Diabetes Diabetic foot infection Diabetic foot infection Diabetic foot ulcer Diabetic toe ulcer Essential hypertension GERD (gastroesophageal reflux disease) Hyperglycemia due to diabetes mellitus Hypertension Ischemic cardiomyopathy Left against medical advice Left against medical advice Osteomyelitis Osteomyelitis 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 PAD (peripheral artery disease) Family History Family History Mother Hx of CABG Sister CAD (coronary artery disease) Surgical History Surgical History History of esophagogastroduodenoscopy (EGD) History of toe surgery (09/22/21) Status post below-knee amputation of left lower extremity (09/20/22) Social History Social History Household Members: Significant Other and Children Housing: Apartment Do you presently have visiting nurse or other home services: Yes Unable to assess alcohol history related to: Refusing to respond Alcohol intake: never Patient Tobacco Use Status: Tobacco use Unknown Tobacco use type: Cigarette Cigarette Packs Per Day: 0.5 Cigarettes Per Day: 6 Years Smoked: 43 e-Cigarette/Vaping Use: Currently Using Second Hand Smoke Exposure: Yes 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 Advance Directives Date on File: 09/22/22 service: No Current occupational status: disabled Meds Allergies Allergy/AdvReac Type Severity Reaction Status Date / Time Penicillins [PENICILLINS] Allergy Severe RASH Verified 11/22/22 14:46 amoxicillin [AMOXICILLIN] Allergy Intermediate HIVES Verified 11/22/22 14:46 perflutren [From Definity] AdvReac Back Pain Verified 11/22/22 14:46 Active Medications: Current Medications Acetaminophen (Acetaminophen 325 Mg Tablet) 650 mg PO Q6H PRN PRN Reason: Pain, Mild (Pain Scale 1-3) Albuterol/Ipratropium (Albuterol/Iprat 2.5/0.5mg 3 Ml Ampul.Neb) 3 ml INHALE RQ4H PRN PRN Reason: Shortness of Breath/Wheezing Albuterol/Ipratropium (Albuterol/Iprat 2.5/0.5mg 3 Ml Ampul.Neb) 3 ml INHALE RQ4H WHILE AWAKE [facility] Last Admin: 12/06/22 12:28 Dose: Not Given Dexamethasone (Dexamethasone 6 Mg Tablet) 6 mg PO DAILY [facility] Last Admin: 12/06/22 08:29 Dose: 6 mg Dextrose (Dextrose 50 % 25 Gm/50 Ml Syringe) 25 gm IVPUSH Q15M PRN; Protocol PRN Reason: per Hypoglycemia Standing Ord. Enoxaparin Sodium (Enoxaparin Sodium 40 Mg/0.4 Ml Syringe) 40 mg SUBCUT BEDTIME [facility] Last Admin: 12/06/22 03:02 Dose: 40 mg Furosemide (Furosemide 40 Mg/4 Ml Vial) 40 mg IVPUSH BID@0900,1800 [facility]; Protocol Last Admin: 12/06/22 08:29 Dose: 40 mg Glucose (Glucose Gel 15 Gm Gel..Gram.) 15 gm PO Q15M PRN; Protocol PRN Reason: per Hypoglycemia Standing Ord. Piperacillin Sod/Tazobactam (Sod 3.375 gm/ Sodium Chloride) 50 mls @ 100 mls/hr IV Q6H [facility] Last Infusion: 12/06/22 09:47 Dose: Infused Vancomycin HCl 1,000 mg/ (Sodium Chloride) 270 mls @ 270 mls/hr IV Q12H [facility] Insulin Human Lispro (Insulin Lispro 100 Unit/Ml 3 Ml Vial) 0 unit SUBCUT QIDACHS [facility]; Protocol Last Admin: 12/06/22 08:29 Dose: 2 unit Morphine Sulfate (Morphine Sulfate 4 Mg/Ml Cartridge) 4 mg IVPUSH Q4H PRN; Protocol PRN Reason: Pain, Severe (Pain Scale 7-10) Last Admin: 12/06/22 09:29 Dose: 4 mg Ondansetron HCl (Ondansetron Hcl 4 Mg/2 Ml Vial) 4 mg IVPUSH Q8H PRN PRN Reason: Nausea and Vomiting Pharmacy Consult (Consult Rx Vancomycin Dosing) 1 each MISCELLANE DAILY PRN PRN Reason: Consult order Pharmacy Consult (Consult Rx Perform Med Rec) 1 each MISCELLANE ONCE PRN PRN Reason: Consult order Sodium Chloride (0.9 % Sodium Chloride Flush 3 Ml Syringe) 3 ml IVFLUSH [facility] Last Admin: 12/06/22 08:30 Dose: 3 ml Home Medications Medication Instructions Recorded Confirmed Last Taken Type clopidogrel 75 mg tablet 75 mg PO DAILY 11/24/22 12/06/22 Unknown History glipizide 5 mg-metformin 500 mg 2 tab PO BID 11/24/22 12/06/22 Unknown History tablet morphine 15 mg tablet,extended 15 mg PO Q12H PAIN 11/26/22 12/06/22 Unknown History release nicotine 21 mg/24 hr daily 1 patch topical DAILY 11/26/22 12/06/22 Unknown History transdermal patch aspirin 81 mg tablet,delayed 81 mg PO DAILY 12/01/22 12/06/22 Unknown History release gabapentin 300 mg capsule 600 mg PO BID 12/06/22 12/06/22 Unknown History montelukast 10 mg tablet 10 mg PO BEDTIME 12/06/22 12/06/22 Unknown History Physical Exam Vital Signs: Vital Signs: Last Vital Signs Temp 98.4 F 12/06/22 02:52 Pulse 101 H 12/06/22 09:35 Resp 16 12/06/22 09:35 BP 134/85 12/06/22 05:42 Pulse Ox 98 12/06/22 09:35 O2 Del Method Nasal Cannula 12/06/22 09:35 O2 Flow Rate 2 12/06/22 09:35 Oxygen Flow Rate 2 12/05/22 22:32 BMI result Body Mass Index 28.2 Const: General: alert and other (disheveled) Orientation/consciousness: patient oriented x3 Resp: Effort & Inspection: normal respiratory effort GI: Palpation (GI): Soft to palpation and nontender Skin: Other: no rash Neuro: General: patient oriented x3 Extrem: Other: left BKA site- wound opening to medial aspect, some fibrinous exudate but no necrosis tissue, serous drainage, no purulence or appreciable fluctuance, significant amount of surrounding edema and erythema Results Labs 12/06/22 05:36 12/06/22 05:36 Labs: Abnormal lab results 12/06/22 12/06/22 12/06/22 Range/Units 01:03 01:03 01:04 Hgb 9.5 L (12.0-16.0) g/dl Hct 32.9 L (37.0-47.0) % MCV 65.0 L (80.0-98.0) fL MCH 18.8 L (27.0-33.0) pg MCHC 28.9 L (31.0-35.0) g/dl RDW 22.1 H (11.0-16.0) % Immature Gran % (Auto) (0.0-0.4) % Lymph % (Auto) 17.9 L (20-40) % [place] % (Auto) (2-11) % Abs Immat Gran (auto) (0.00-0.03) X10*3/uL Absolute Nucleated RBC 0.020 H (0.0-0.012) X10*3/uL Nucleated RBC % (auto) 0.3 H (0.0-0.2) /100WBC POC Glucose (60-115) mg/dL Random Glucose 213 H (60-115) mg/dL Lactic Acid 3.0 H* (0.5-2.0) mmol/L Lactic Acid F/U @ 2Hr (0.5-2.0) mmol/L Total Bilirubin 4.3 H (0.0-1.0) mg/dL ALT 45 H (0-31) U/L Alkaline Phosphatase 124 H (39-117) U/L C-Reactive Protein 7.70 H (< or = 0.50) mg/dL B-Natriuretic Peptide (<100) pg/mL Total Protein 6.0 L (6.5-8.0) g/dL Albumin 3.2 L (3.5-5.0) g/dL COVID-19 (KATHLEEN) (Negative) 12/06/22 12/06/22 12/06/22 Range/Units 01:04 01:48 03:48 Hgb (12.0-16.0) g/dl Hct (37.0-47.0) % MCV (80.0-98.0) fL MCH (27.0-33.0) pg MCHC (31.0-35.0) g/dl RDW (11.0-16.0) % Immature Gran % (Auto) (0.0-0.4) % Lymph % (Auto) (20-40) % [place] % (Auto) (2-11) % Abs Immat Gran (auto) (0.00-0.03) X10*3/uL Absolute Nucleated RBC (0.0-0.012) X10*3/uL Nucleated RBC % (auto) (0.0-0.2) /100WBC POC Glucose (60-115) mg/dL Random Glucose (60-115) mg/dL Lactic Acid (0.5-2.0) mmol/L Lactic Acid F/U @ 2Hr 2.2 H* (0.5-2.0) mmol/L Total Bilirubin (0.0-1.0) mg/dL ALT (0-31) U/L Alkaline Phosphatase (39-117) U/L C-Reactive Protein (< or = 0.50) mg/dL B-Natriuretic Peptide 3727 H (<100) pg/mL Total Protein (6.5-8.0) g/dL Albumin (3.5-5.0) g/dL COVID-19 (KATHLEEN) Positive A (Negative) 12/06/22 12/06/22 12/06/22 Range/Units 05:36 05:36 07:33 Hgb 8.9 L (12.0-16.0) g/dl Hct 31.2 L (37.0-47.0) % MCV 65.4 L (80.0-98.0) fL MCH 18.7 L (27.0-33.0) pg MCHC 28.5 L (31.0-35.0) g/dl RDW 21.6 H (11.0-16.0) % Immature Gran % (Auto) 0.7 H (0.0-0.4) % Lymph % (Auto) (20-40) % [place] % (Auto) 11.6 H (2-11) % Abs Immat Gran (auto) 0.04 H (0.00-0.03) X10*3/uL Absolute Nucleated RBC 0.030 H (0.0-0.012) X10*3/uL Nucleated RBC % (auto) 0.5 H (0.0-0.2) /100WBC POC Glucose 161 H (60-115) mg/dL Random Glucose 163 H (60-115) mg/dL Lactic Acid (0.5-2.0) mmol/L Lactic Acid F/U @ 2Hr (0.5-2.0) mmol/L Total Bilirubin (0.0-1.0) mg/dL ALT (0-31) U/L Alkaline Phosphatase (39-117) U/L C-Reactive Protein (< or = 0.50) mg/dL B-Natriuretic Peptide (<100) pg/mL Total Protein (6.5-8.0) g/dL Albumin (3.5-5.0) g/dL COVID-19 (KATHLEEN) (Negative) Short CBC 12/06/22 12/06/22 Range/Units 01:04 05:36 WBC 6.7 6.1 (4.8-10.8) X10*3/uL Hgb 9.5 L 8.9 L (12.0-16.0) g/dl Hct 32.9 L 31.2 L (37.0-47.0) % Plt Count 187 D 170 (160-400) X10*3/uL BMP 12/06/22 12/06/22 01:03 05:36 Sodium 137 137 Potassium 4.5 D 4.6 Chloride 100 103 Carbon Dioxide 25 23 BUN 14 13 Creatinine 0.89 0.77 Calcium 9.2 D 8.5 D Liver Function 12/06/22 Range/Units 01:03 Total Bilirubin 4.3 H (0.0-1.0) mg/dL AST 15 (5-31) U/L ALT 45 H (0-31) U/L Alkaline Phosphatase 124 H (39-117) U/L Albumin 3.2 L (3.5-5.0) g/dL All other labs normal. Assessment and Plan (1) Cellulitis of left lower extremity: Status: Acute Plan 52-year-old female with extensive PMH who presents to the ED for evaluation for redness and increasing drainage from left BKA wound. The wound itself is clean appearing but she does have a fairly significant amount of surrounding cellulitic changes. Would recommend continuing daily dressing changes with silver alginate to incision opening followed by fluffs, kerlix and cassandra wrap for compression. Cont left stump elevation to reduce edema. No current debridement or surgical intervention necessary. If there is no significant improvement of the cellulitis within the next 1-[address] scan to further evaluate. She was recently admitted for transaminitis but left AMA prior to work up completion. Her bilirubin continues to trend up. Previous MRCP did not show any CBD obstruction. Hepatitis serologies negative. Rec trending LFTs, GI consult to evaluate. Time Spent With Patient Time: Total time managing care of this patient today ____ minutes. Procedures Date of Service Date of Service: 12/06/22
[2022-12-06 13:02] LABS: Glucose, Whole Blood 198 mg/dL (60-115)
--- NOTE | 2022-12-06 13:24 | PC.NURSE ---
Pt alerted staff that she was going to leave, that she was upset she was not getting her medications on time, Patient educated that her metformin is not ordered right now d/t her getting insulin in its place, pt in agreement, but is still upset she is not getting her morphine the way that she wants. At this time pt explained she has received all her medications on time to what is ordered here at the hospital. Pt also stated she is going home d/t having a urinary accident this morning in bed. Pt was medicated by nursing at 0930 with PRN pain medication, she rang at 0945 stating that she had an accident and needed to be cleaned, staff was at bedside and got patient to commode and provided hygiene care, and cleaned bed/changed sheets. Pt now stated that it took over 3 hours for staff to show up and clean her. Education provided on Pt leaving AMA. Pt reported that she would go to her PCP and that he would admit her to hospital for behavioral medicine instead. Provider notified and requested to come and talk with the patient at this time. Nursing went to [facility], however pt complaining of pain at IV site, IV held at this time until provider can speak with pt d/t being hard stick.
--- NOTE | 2022-12-06 14:18 | PC.NURSE ---
Provider at bedside to talk with patient about leaving AMA, risks/benefits gone over with pt. Pt still chose to leave AMA. Medications returned to pt via pharmacy. IV removed. Pt spouse helped get dress and transfer to w/c to be taken off unit
--- NOTE | 2022-12-06 14:22 | MHC.CM.PN ---
Patient left AMA before being seen by case management.
--- NOTE | 2022-12-06 14:26 | P.DS_ITS ---
DS: Providers Provider Date of Service: 12/06/22 Date of admission: 12/06/22 02:25 Primary care physician: Emilie Dangelo MD Consults: 12/06/22 02:24 Consult to General Surgery Routine Consulting Provider: [facility] [place] General Surgeons Reason for consultation: bka wound infection Has provider been notified: No DS: Diagnosis Discharge Diagnosis (1) Cellulitis of left lower extremity: Status: Acute DS: Summary Hospital Course Hospital Course: 52-year-old female with a past medical history of COPD, CHF, diabetes, neuropathy, HTN, CAD status post LAD stent, PVD status post left BKA who had left against medical advice on 12/02 after being admitted for evaluation of a nonhealing BKA wound.? Patient states that she came back today because her wound is not healing, she is not doing too well.? She had left AMA at the discretion of her daughter who she says is her health car proxy and forced her to leave.? She did not go to [facility]. Patient reports that she still has drainage from her BKA wound, and now has a cough that is productive, has Orthopnea and PND,? denies any fever chills,? denies any chest pain, no urinary symptoms, she has chronic lower extremity edema on the right that has not changed.?On arrival to the ED patient has a heart rate of 112, otherwise stable Labs are significant for WBC count of 6.7, hemoglobin of 9.5 which is around her baseline, hematocrit of 32.9, ESR of for, lactic acid of 3.0 which improved after IV fluids, BNP of 3727 Chest x-ray shows mild patchy bibasilar opacities increased from prior and trace pleural effusion, concerning for multifocal pneumonia Started on IV antibiotics and will be admitted for further management Unfortunately, the patient decided to leave against medical advice prior to completing treatment. She was noted to be alert and oriented x3. She was advised that her wound can get worse, she could develop blood infection and even . She was aware of all this and still decided to leave against medical advice. Aware that her blood cultures had not come back yet and there was not an specific isolated bacteria and that she would be sent home with an antibiotic that should cover for any wound infection that is present. She should be following up with her primary care provider as soon as possible or return to the emergency department if she has worsening symptoms. Time Spent with Patient Time attestation: Total time managing care of this patient today ____ minutes. Discharge coordination time: Greater than 30 minutes Quality: Safe Use of Opioids Does Pt have an Active Cancer Diagnosis on the Problem List?: No Quality: Stroke Does the patient have a stroke diagnosis?: No Physical Exam Vital Signs: Vital Signs: Last Vital Signs Temp 98.4 F 12/06/22 02:52 Pulse 98 12/06/22 12:58 Resp 15 12/06/22 12:58 BP 120/82 12/06/22 12:58 Pulse Ox 100 12/06/22 12:58 O2 Del Method Nasal Cannula 12/06/22 12:58 O2 Flow Rate 2 12/06/22 12:58 Oxygen Flow Rate 2 12/05/22 22:32 BMI result Body Mass Index 28.2 LEFT AMA DS: Data Data Completed and Pending Completed studies during hospitalization [Text1]: Procedures Detachment at Left Lower Leg, High, Open Approach (09/15/22) Drainage of Left Foot Skin, External Approach (11/18/21) Excision of Left Foot Skin, External Approach (09/15/22) Excision of Left Foot Subcutaneous Tissue and Fascia, Open Approach (11/18/21) Insertion of Infusion Device into Superior Vena Cava, Percutaneous Approach (08/21/21) Introduction of Anesthetic Agent into Peripheral Nerves and Plexi, Percutaneous Approach (09/15/22) Transfusion of Nonautologous Red Blood Cells into Peripheral Vein, Percutaneous Approach (06/19/22) Labs on day of discharge: Laboratory Results - last 24 hr 12/06/22 12/06/22 12/06/22 01:03 01:03 01:04 WBC 6.7 RBC 5.06 Hgb 9.5 L Hct 32.9 L MCV 65.0 L MCH 18.8 L MCHC 28.9 L RDW 22.1 H Plt Count 187 D MPV Not Reportable Immature Gran % (Auto) 0.3 Neut % (Auto) 70.4 Lymph % (Auto) 17.9 L Webster % (Auto) 9.4 Eos % (Auto) 1.3 Baso % (Auto) 0.7 Lymph # (Auto) 1.2 Webster # (Auto) 0.6 Eos # (Auto) 0.1 Baso # (Auto) 0.1 Abs Immat Gran (auto) 0.02 Absolute Neuts (auto) 4.7 Absolute Nucleated RBC 0.020 H Nucleated RBC % (auto) 0.3 H Smear Tech's Comments ESR Sodium 137 Potassium 4.5 D Chloride 100 Carbon Dioxide 25 Anion Gap 17 BUN 14 Creatinine 0.89 Estim Creat Clear Calc 71.1 Estimated GFR > 60 POC Glucose Random Glucose 213 H Lactic Acid 3.0 H* Lactic Acid F/U @ 2Hr Lactic Acid F/U @ 4Hr Calcium 9.2 D Total Bilirubin 4.3 H AST 15 ALT 45 H Alkaline Phosphatase 124 H C-Reactive Protein 7.70 H B-Natriuretic Peptide Total Protein 6.0 L Albumin 3.2 L COVID-19 (KATHLEEN) COVID-Echo it 12/06/22 12/06/22 12/06/22 01:04 01:48 02:43 WBC RBC Hgb Hct MCV MCH MCHC RDW Plt Count MPV Immature Gran % (Auto) Neut % (Auto) Lymph % (Auto) [place] % (Auto) Eos % (Auto) Baso % (Auto) Lymph # (Auto) Webster # (Auto) Eos # (Auto) Baso # (Auto) Abs Immat Gran (auto) Absolute Neuts (auto) Absolute Nucleated RBC Nucleated RBC % (auto) Smear Tech's Comments ESR 4 Sodium Potassium Chloride Carbon Dioxide Anion Gap BUN Creatinine Estim Creat Clear Calc Estimated GFR POC Glucose Random Glucose Lactic Acid Lactic Acid F/U @ 2Hr Lactic Acid F/U @ 4Hr Calcium Total Bilirubin AST ALT Alkaline Phosphatase C-Reactive Protein B-Natriuretic Peptide 3727 H Total Protein Albumin COVID-19 (KATHLEEN) Positive A [email or web address] See Note 12/06/22 12/06/22 12/06/22 03:48 05:36 05:36 WBC 6.1 RBC 4.77 Hgb 8.9 L Hct 31.2 L MCV 65.4 L MCH 18.7 L MCHC 28.5 L RDW 21.6 H Plt Count 170 MPV Not Reportable Immature Gran % (Auto) 0.7 H Neut % (Auto) 62.4 Lymph % (Auto) 22.8 [place] % (Auto) 11.6 H Eos % (Auto) 1.7 Baso % (Auto) 0.8 Lymph # (Auto) 1.4 Webster # (Auto) 0.7 Eos # (Auto) 0.1 Baso # (Auto) 0.1 Abs Immat Gran (auto) 0.04 H Absolute Neuts (auto) 3.8 Absolute Nucleated RBC 0.030 H Nucleated RBC % (auto) 0.5 H Smear Tech's Comments VERIFIED ESR Sodium 137 Potassium 4.6 Chloride 103 Carbon Dioxide 23 Anion Gap 16 BUN 13 Creatinine 0.77 Estim Creat Clear Calc 82.3 Estimated GFR > 60 POC Glucose Random Glucose 163 H Lactic Acid Lactic Acid F/U @ 2Hr 2.2 H* Lactic Acid F/U @ 4Hr Calcium 8.5 D Total Bilirubin AST ALT Alkaline Phosphatase C-Reactive Protein B-Natriuretic Peptide Total Protein Albumin COVID-19 (KATHLEEN) [employer] 12/06/22 12/06/22 12/06/22 06:08 07:33 12:57 WBC RBC Hgb Hct MCV MCH MCHC RDW Plt Count MPV Immature Gran % (Auto) Neut % (Auto) Lymph % (Auto) [place] % (Auto) Eos % (Auto) Baso % (Auto) Lymph # (Auto) Webster # (Auto) Eos # (Auto) Baso # (Auto) Abs Immat Gran (auto) Absolute Neuts (auto) Absolute Nucleated RBC Nucleated RBC % (auto) Smear Tech's Comments ESR Sodium Potassium Chloride Carbon Dioxide Anion Gap BUN Creatinine Estim Creat Clear Calc Estimated GFR POC Glucose 161 H 198 H Random Glucose Lactic Acid Lactic Acid F/U @ 2Hr Lactic Acid F/U @ 4Hr 1.8 Calcium Total Bilirubin AST ALT Alkaline Phosphatase C-Reactive Protein B-Natriuretic Peptide Total Protein Albumin COVID-19 (KATHLEEN) COVID-Echo it Discharge Plan Discharge Anticipated Discharge Date/Time: 12/06/22 13:55 Patient Disposition: Left Against Medical Advice Discharge Diagnosis: Stump wound Referrals: Emilie Dangelo MD [Primary Care Provider] - 1 Week Discharge Medications: New doxycycline hyclate 100 mg tablet 100 mg PO BID Qty: 10 0RF No Action albuterol sulfate 2.5 mg /3 mL (0.083 %) solution for nebulization 1 vial inhalation Q6H PRN (Reason: Wheezing) Qty: 90 0RF lisinopril 20 mg tablet 20 mg PO DAILY Qty: 30 0RF albuterol sulfate [Ventolin HFA] 90 mcg/actuation HFA aerosol inhaler 1 puff INHALATION Q4H PRN (Reason: Wheezing) Qty: 1 0RF Incruse Ellipta 62.5 mcg/actuation blister with device 1 puff PO DAILY Qty: 1 0RF gabapentin 300 mg capsule 600 mg PO BID montelukast 10 mg tablet 10 mg PO BEDTIME atorvastatin 80 mg Tablet 80 mg PO BEDTIME 30 Days Qty: 30 0RF acetaminophen 325 mg Tablet 650 mg PO Q8H PRN (Reason: Pain, Mild (Pain Scale 1-3)) 30 Days Qty: 90 0RF polyethylene glycol 3350 17 gram Powder In Packet 17 g PO DAILY PRN (Reason: Constipation) 5 Days Qty: 30 0RF carvedilol 3.125 mg Tablet 3.125 mg PO BID 30 Days Qty: 60 0RF Protocol: Hold for SBP/HR < HOLD for SBP < : 90 HOLD for HR < : 60 ipratropium-albuterol 0.5 mg-3 mg(2.5 mg base)/3 mL solution for nebulization 3 ml inhalation TID Qty: 90 0RF oxycodone 5 mg tablet 5 mg PO Q6H PRN (Reason: pain) Qty: 7 0RF Rx Instructions: Partial Fill upon patient request. furosemide 40 mg tablet 40 mg PO BID Qty: 60 2RF glipizide-metformin 5-500 mg tablet 2 tab PO BID clopidogrel 75 mg tablet 75 mg PO DAILY nicotine 21 mg/24 hr patch 24 hour 1 patch topical DAILY morphine 15 mg Tablet Extended Release 15 mg PO Q12H aspirin 81 mg tablet,delayed release (DR/EC) 81 mg PO DAILY Aquacel-AG 1.2-3.5 X 4 %- bandage 1 ea topical Q OTHER DAY 30 Days Qty: 10 0RF Rx Instructions: cut portion of bandage to cover open wound, apply every other day. Cover with 4x4 gauze, 4 inch ann, and 4 inch AIDAN. Discharge Orders: Discharge Order (Routine); Ordered 12/06/22 Ordered By: Elizabeth Gracia Diet: Advance to usual diet Activity on Discharge: As tolerated Care Plan Goals: Follow-up with primary wound care physician soon as possible Health Concerns: Stump wound Plan of Treatment: Patient reports wanting to leave against medical advice. She is aware that she has not completed therapy for her open stump wound and her symptoms could worsen without the proper treatment, she is aware of this, is alert and oriented x3 and still reports wanting to leave against medical advice. Assessment: See discharge summary
== END 2022-12-06 14:20 | disposition left against medical advice (07) | DRG 349 ==
LOC: HO.ED 12-06 01:45 → HO.EDOVER 12-06 02:33 → HO.S3 12-06 07:17 → HO.EDOVER 12-06 07:45
PROVIDERS: Admitting Provider Internal Medicine; Emergency Provider Internal Medicine; PCP Internal Medicine; Visit Provider Nurse Practitioner Acute Care
DX: T87.44 Infection of amputation stump, left lower extremity (principal); U07.1 COVID-19; I50.23 Acute on chronic systolic (congestive) heart failure; E11.40 Type 2 diabetes mellitus with diabetic neuropathy, unspecified; J18.9 Pneumonia, unspecified organism; I11.0 Hypertensive heart disease with heart failure; T87.81 Dehiscence of amputation stump; L03.116 Cellulitis of left lower limb; J44.0 Chronic obstructive pulmonary disease with (acute) lower respiratory infection; I25.10 Atherosclerotic heart disease of native coronary artery without angina pectoris; Y83.5 Amputation of limb(s) as the cause of abnormal reaction of the patient, or of later complication, without mention of misadventure at the time of the procedure; Z79.02 Long term (current) use of antithrombotics/antiplatelets; Z88.0 Allergy status to penicillin; Z79.84 Long term (current) use of oral hypoglycemic drugs; Z79.899 Other long term (current) drug therapy
CPT/HCPCS: 36415; 36600; 71045; 80048; 80053; 82947; 83605; 83880; 85025; 85652; 86140; 87040; 87635; 93005; 94640; 99285; J1650; J1940; J2270; J2405; J2543; J3370; J8540

== ENCOUNTER 2022-12-19 12:26 | Outpatient (RCR) | payer OTHER, SELFPAY | END 2023-02-14 16:00 | disposition home or self-care (01) | LOC: HO.WCC 12:26 | PROVIDERS: Visit Provider Physician Assistant | DX: E11.622 Type 2 diabetes mellitus with other skin ulcer (principal); L97.822 Non-pressure chronic ulcer of other part of left lower leg with fat layer exposed; L97.825 Non-pressure chronic ulcer of other part of left lower leg with muscle involvement without evidence of necrosis; L97.512 Non-pressure chronic ulcer of other part of right foot with fat layer exposed; T87.81 Dehiscence of amputation stump; E11.42 Type 2 diabetes mellitus with diabetic polyneuropathy; R60.0 Localized edema; I11.0 Hypertensive heart disease with heart failure; I50.9 Heart failure, unspecified; K76.9 Liver disease, unspecified; F17.210 Nicotine dependence, cigarettes, uncomplicated; Z71.6 Tobacco abuse counseling; Z89.512 Acquired absence of left leg below knee; Z91.81 History of falling | CPT/HCPCS: 11042; 11043; 11045; 11046; Q9957 ==

== ENCOUNTER 2022-12-22 10:58 | Outpatient (AMB) | payer OTHER, SELFPAY ==
--- NOTE | 2022-12-22 11:14 | MHC.OFFVIS ---
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 Accompanied by: Other Relationship Allergies Penicillins [PENICILLINS] Allergy (Severe, Verified 12/22/22 11:16) RASH amoxicillin [AMOXICILLIN] Allergy (Intermediate, Verified 12/22/22 11:16) HIVES perflutren [From Definity] Adverse Reaction (Verified 12/22/22 11:16) Back Pain Medication List - Last Reconciled 12/22/22 by Luis Miguel Cantu MD acetaminophen 650 mg (2 x 325 mg) PO Q8H PRN 30 days albuterol sulfate 1 vial inhalation Q6H PRN albuterol sulfate 90 mcg/actuation (Ventolin HFA) 1 puff inhalation Q4H PRN aspirin 81 mg PO DAILY atorvastatin 80 mg PO BEDTIME 30 days carvedilol 3.125 mg See Protocol PO BID 30 days clopidogrel 75 mg PO DAILY furosemide 40 mg PO BID gabapentin 600 mg PO BID glipizide-metformin 5-500 mg 2 tabs PO BID ipratropium-albuterol 0.5 mg-3 mg(2.5 mg base)/3 mL 3 mL inhalation TID lisinopril 20 mg PO DAILY montelukast 10 mg PO BEDTIME nicotine 1 patch topical DAILY oxycodone 5 mg PO Q8H PRN polyethylene glycol 3350 17 grams PO DAILY PRN 5 days silver-hydrocolloid dressing 1.2-3.5 X 4 %- (Aquacel-AG) 1 ea topical Q OTHER DAY 1 month umeclidinium 62.5 mcg/actuation (Incruse Ellipta) 1 puff PO DAILY HPI HPI Comments History of Present Illness Details 52-year-old female patient status post left below-knee amputation 09/20/2022 returning for wound check. On her previous wound check he reports his falling onto her stump when trying to get up and walk without realizing she underwent an amputation. This resulted in an open wound of the medial portion of the left stump. [facility]. She reports phantom pain with a sensation of her toes causing increased pain. She also has edema in the stump for which is cloth finishing range tender has been started. She is requesting pain medication. [facility], LATER [facility] Medical History Asthma Atherosclerotic cardiovascular disease Atrial tachycardia Below-knee amputation of left lower extremity Cellulitis in diabetic foot COPD (chronic obstructive pulmonary disease) Coronary artery disease COVID-19 vaccine series completed Diabetes Diabetic foot infection Diabetic foot infection Diabetic foot ulcer Diabetic toe ulcer Essential hypertension GERD (gastroesophageal reflux disease) Hyperglycemia due to diabetes mellitus Hypertension Ischemic cardiomyopathy Left against medical advice Left against medical advice Osteomyelitis Osteomyelitis 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 PAD (peripheral artery disease) Surgical History History of esophagogastroduodenoscopy (EGD) History of toe surgery (09/22/21) Status post below-knee amputation of left lower extremity (09/20/22) Family History Mother Hx of CABG Sister CAD (coronary artery disease) Social History Household Members: Significant Other and Children Housing: Apartment Do you presently have visiting nurse or other home services: Yes Unable to assess alcohol history related to: Refusing to respond Alcohol intake: never Patient Tobacco Use Status: Tobacco use Unknown Tobacco use type: Cigarette Cigarette Packs Per Day: 0.5 Cigarettes Per Day: 6 Years Smoked: 43 e-Cigarette/Vaping Use: Currently Using Second Hand Smoke Exposure: Yes 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 Advance Directives Date on File: 09/22/22 service: No Current occupational status: disabled Review of Systems Const Denies chills and Denies fever(s) Card Denies chest pain, Denies dyspnea and Denies dyspnea on exertion Resp Denies cough, Denies dyspnea and Denies dyspnea on exertion GI Denies hematochezia and Denies change in bowel habits Denies hematuria Musc Denies back pain and Denies limited range of motion Neuro Denies focal weakness and Denies convulsions Psych Denies depression and Denies mood swings Physical Exam Vital Signs: Last Vital Signs Pulse 91 12/22/22 11:18 BP 118/69 12/22/22 11:18 BMI result Body Mass Index 28.1 Const General: no acute distress Nutritional Appearance: well nourished Orientation/consciousness: patient oriented x3 Limitations: wheelchair HEENT Head: Yes normocephalic Teeth and gingiva: edentulous Resp Effort & Inspection: normal respiratory effort, audible wheezes, Actively coughing and no respiratory distress Skin General skin exam: no rashes or lesions noted Neuro General: patient oriented x3 Extrem Other: Left. Edema extending up above the knee. Dressings were changed and open area noted in the medial incision with underlying granulation tissue. Wounds were redressed with dry sterile dressings, stocking net and cloth finishing range tender. Patient tolerated well. Assessment & Plan Assessment & Plan (1) Cellulitis of left lower extremity: Code(s): L03.116 - Cellulitis of left lower limb Plan Status post left BKA now with wound separation after fall. Left leg is edematous and needs compressive therapy. She was instructed on placing a compressive dressing/cloth finishing range tender. She should continue to follow-up with wound care for management of the open wound. If this is not successful she may require reoperation. She will follow-up in 1 month. Medications: New oxycodone Partial Fill upon patient request. 5 mg PO Q8H PRN 20 tabs 0RF pain (scale score 7-10) L03.116 - Cellulitis of left lower limb, L08.9 - Local infection of the skin and subcutaneous tissue, unspecified, T14.8XXA - Other injury of unspecified body region, initial encounter Discontinued montelukast 1 tab PO BEDTIME 30 tabs 0RF gabapentin 2 caps PO BID 120 caps 0RF Coding Level of Care Code Est Pt Level 3 (44967) Diagnoses Cellulitis of left lower extremity L03.116
[2022-12-22 11:18] VITALS: BP 118/69; PULSE 91; BMI 28.1
== END 2022-12-22 11:37 | disposition home or self-care (01) ==
PROVIDERS: PCP Nurse Practitioner Family; Visit Provider Surgery
DX: L03.116 Cellulitis of left lower limb (principal)
CPT/HCPCS: 99213

== ENCOUNTER → 2022-12-22 10:58 | Outpatient (BNVA) | payer OTHER, SELFPAY | PROVIDERS: PCP Nurse Practitioner Family; Visit Provider Surgery | DX: T87.81 Dehiscence of amputation stump (principal); L03.116 Cellulitis of left lower limb; Z89.512 Acquired absence of left leg below knee | CPT/HCPCS: 99212 ==

== ENCOUNTER 2023-01-07 18:30 | Emergency (ER) | payer OTHER, SELFPAY ==
--- NOTE | ~2023-01-07 | XR_ITS ---
EXAMINATION: XR FOOT, RIGHT CLINICAL INFORMATION: Evaluate for osteomyelitis COMPARISON: None available. TECHNIQUE: AP, lateral, and oblique views of the right foot. FINDINGS: There is loss in visualization of the cortex of the cuboid on one view only. This is the proximal cuboid. Otherwise no evidence of a bony erosion. XR/XR foot RT min 3V IMPRESSION: Loss in visualization of the normal cortex of the proximal cuboid. This could be projectional. No bony erosion here cannot be excluded. Correlation recommended clinically. If further evaluation is warranted recommend MR
--- NOTE | ~2023-01-07 | XR_ITS ---
EXAMINATION: XR CHEST CLINICAL INFORMATION: Cough COMPARISON: 12/05/2022, 11/24/2022 TECHNIQUE: Frontal view of the chest was obtained. FINDINGS: Persistent left mid to lower lung opacity and there is also opacity in the right lower lung zone. Consistent with areas of persistent infiltrate. Likely resolving effusion on the right. There is persistent blunting of left lateral costophrenic angle which may represent fluid. Similar to previous. Prominent cardiac silhouette. No failure at this time XR/XR chest 1V IMPRESSION: Persistent bilateral basilar opacities consistent with infiltrates. Continued follow-up is recommended. Likely improving fluid on the right. Persistent probable pleural effusion on the left.
--- NOTE | 2023-01-07 18:34 | ED.GENADULT ---
HPI - General Adult General Chief complaint: General Medical Stated complaint: Right leg leaking fluid/some odor Time Seen by Provider: 01/07/23 20:17 Source: patient Limitations: no limitations History of Present Illness HPI narrative: 52 yearsPatient is 52 years old with past medical history of COPD, CHF, diabetes, hypertension, neuropathy, CAD status post LAD stent 2 months ago PVD status post left BKA done on 09/21/2022 has a nonhealing presents emergency department for evaluation of shortness of breath, abdominal swelling, lower extremity swelling , cough productive of clear sputum, and back pain. She states her symptoms have been present for 1 week and got worse over the past several days. She states she has a cough which is productive of clear sputum she has not noticed any blood in her sputum. She feels short of breath. She states that her abdomen is swollen her lower extremities are swollen. She has been compliant with her medications. She states that the symptoms are very similar to symptoms that she gets when she has congestive heart failure. She denied fever, chills, chest pain, nausea, vomiting, diarrhea. She states she has no dysuria but has urinary frequency secondary to her diuretics. Related Data Home Medications Medication Instructions Recorded Confirmed clopidogrel 75 mg tablet 75 mg PO DAILY 11/24/22 01/11/23 nicotine 21 mg/24 hr daily 1 patch topical DAILY 11/26/22 01/11/23 transdermal patch aspirin 81 mg tablet,delayed 81 mg PO DAILY 12/01/22 12/22/22 release apixaban 5 mg tablet (Eliquis) 5 mg PO BID 01/11/23 01/11/23 fluticasone propionate 115 2 puff inhalation BID 01/11/23 01/11/23 mcg-salmeterol 21 mcg/actuation HFA inhaler glipizide 10 mg tablet 10 mg PO DAILY 01/11/23 01/11/23 insulin glargine 100 unit/mL (3 20 unit subcut BID 01/11/23 01/11/23 mL) subcutaneous pen (Lantus Solostar U-100 Insulin) Previous Rx's Medication Instructions Recorded acetaminophen 325 mg tablet 650 mg PO Q8H PRN Pain, Mild (Pain 09/21/22 Scale 1-3) 30 days #90 tabs atorvastatin 80 mg tablet 80 mg PO BEDTIME 30 days #30 tabs 09/21/22 carvedilol 3.125 mg tablet 3.125 mg PO BID 30 days #60 tabs 09/21/22 albuterol sulfate 2.5 mg/3 mL 1 vial inhalation Q6H PRN Wheezing 09/29/22 (0.083 %) solution for nebulization #90 mL albuterol sulfate 90 mcg/actuation 1 puff inhalation Q4H PRN Wheezing 09/29/22 aerosol inhaler (Ventolin HFA) #1 g lisinopril 20 mg tablet 20 mg PO DAILY #30 tabs 09/29/22 umeclidinium 62.5 mcg/actuation 1 puff PO DAILY #1 ea 09/29/22 blister powder for inhalation (Incruse Ellipta) furosemide 40 mg tablet 40 mg PO BID #60 tabs 10/27/22 oxycodone 5 mg tablet 5 mg PO Q8H PRN pain #15 tabs 01/03/23 morphine 15 mg immediate release 15 mg PO Q4-6H PRN pain #10 tabs 01/08/23 tablet Allergies Allergy/AdvReac Type Severity Reaction Status Date / Time Penicillins [PENICILLINS] Allergy Severe RASH Verified 01/07/23 18:41 amoxicillin [AMOXICILLIN] Allergy Intermediate HIVES Verified 01/07/23 18:41 perflutren [From Definity] AdvReac Back Pain Verified 01/07/23 18:41 Review of Systems Review of Systems: Yes all other systems are reviewed and are negative [facility] Past Medical History [facility] Narrative: Social history: She does smoke cigarettes. She denies alcohol use. She denies drug use. Medical History (Updated 01/11/23 @ 09:06 by Gerardo Gracia MD) Asthma Atherosclerotic cardiovascular disease Atrial tachycardia Below-knee amputation of left lower extremity Cellulitis in diabetic foot COPD (chronic obstructive pulmonary disease) Coronary artery disease Diabetes Diabetic foot infection Essential hypertension GERD (gastroesophageal reflux disease) Hyperglycemia due to diabetes mellitus Hypertension Ischemic cardiomyopathy Osteomyelitis 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 PAD (peripheral artery disease) Septic pulmonary embolism Surgical History History of esophagogastroduodenoscopy (EGD) History of toe surgery (09/22/21) Status post below-knee amputation of left lower extremity (09/20/22) Family History Family History Mother Hx of CABG Sister CAD (coronary artery disease) Social History Social History Household Members: Spouse Housing: Apartment Do you presently have visiting nurse or other home services: Yes Unable to assess alcohol history related to: Refusing to respond Alcohol intake: current Alcohol intake frequency: 3 or more drinks per day Alcohol type: hard liquor Patient Tobacco Use Status: Current everyday Tobacco user Tobacco use type: Cigarette Cigarette Packs Per Day: 0.5 Cigarettes Per Day: 10 Years Smoked: 43 e-Cigarette/Vaping Use: Currently Using Second Hand Smoke Exposure: Yes Substance Use Type: Marijuana Advance Directives Date on File: 09/22/22 service: No Current occupational status: disabled Physical Exam ED Vital Signs: Vital Signs - 24 hr 01/07/23 18:35 01/07/23 21:27 01/07/23 22:11 Temperature 97.7 F 97.5 F Pulse Rate 100 97 96 Respiratory Rate 16 25 H Blood Pressure 114/70 115/69 123/85 Pulse Oximetry 100 100 Oxygen Delivery Method Room Air Room Air BMI result Body Mass Index 20.4 Const Other: Awake, alert, female patient, very pleasant cooperative, does not appear to be in distress, answers all questions appropriately [facility] Head: Yes normal to inspection, Yes normocephalic and Yes atraumatic Ears: external ears normal General nose exam: Normal external nose present Face and sinus: Yes normal facial exam Mouth: Normal oral and palatal mucosa present Throat: Yes posterior oropharynx normal Eyes General: appearance normal, both eyes and all related structures Pupils: Equal, round and reactive pupils present Neck Neck: Yes normal visual inspection, Yes no lymphadenopathy, Yes trachea midline and Yes supple Chest Chest palpation & inspection: normal inspection of the chest and normal palpation of entire chest wall Resp Other: Lungs were clear to auscultation, breath sounds symmetric bilaterally Cardio Rate: regular rate Rhythm: regular rhythm Heart sounds: S1 normal heart sound present, S2 normal heart sound present and no murmurs GI Inspection: Yes normal to inspection Palpation (GI): Soft to palpation, nontender and no guarding Auscultation: normal bowel sounds General: Yes no CVA tenderness Back/Spine/Pelvis Back: no CVA tenderness Skin General skin exam: no rashes or lesions noted Neuro Cranial nerves: Yes CN's II-XII intact bilaterally and Yes Equal, round and reactive pupils present Cognition (Neuro): normal cognition Motor exam (neuro): 5/5 motor strength present throughout Extrem Other: Left below the knee amputation, both extremities are erythematous but not warm to the touch consistent with a chronic dermatitis, patient has trace to 1+ pitting edema both lower extremities, there is no active weeping of fluid from her lower extremities at this time. Psych Appearance: grossly normal Speech and movement: Normal speech and movement present Affect: normal affect Attitude: cooperative Thought process: Normal thought process present Thought content: Normal thought content present Course Course Course Narrative: This is a rapid medical exam: Additional HPI, ROS, PE not included below will be deferred to primary provider. Patient is a 52-year-old female with history of CHF, T2DM, left BKA, NSTEMI, cellulitis presenting to the emergency department with complaint of wounds to right foot around 2 weeks ago, lower extremity swelling, and cough productive of frothy clear/white sputum. States she is on diuretic but continues to have lower extremity edema and erythema. Reports that she was at [facility] ED last night and they wanted to admit her for CHF exacerbation but left because her family asked her to come here because it is closer to them. Plan: right foot x-ray, CXR, labs Medications Administered Discontinued Medications Generic Name Dose Route Start Last Admin Trade Name Angel PRN Reason Stop Dose Admin Furosemide 60 mg 01/07/23 21:30 01/07/23 22:08 Furosemide 100 Mg/10 Ml Vial IVPUSH 01/07/23 21:31 60 mg ONCE ONE Administration Protocol Morphine Sulfate 4 mg 01/07/23 20:46 01/07/23 21:59 Morphine Sulfate 4 Mg/Ml Cartridge IVPUSH 01/07/23 20:47 4 mg ONCE STA Administration Protocol Morphine Sulfate 4 mg 01/08/23 00:08 01/08/23 00:50 Morphine Sulfate 4 Mg/Ml Cartridge IVPUSH 01/08/23 00:09 4 mg ONCE STA Administration Protocol Medical Decision Making Medical Decision Making [facility] Narrative: 52 yearsPatient is 52 years old with past medical history of COPD, CHF, diabetes, hypertension, neuropathy, CAD status post LAD stent 2 months ago PVD status post left BKA done on 09/21/2022 has a nonhealing presents emergency department for evaluation of back pain, shortness of breath, abdominal swelling, lower extremity swelling and cough productive of clear sputum. Patient's vital signs were normal with an O2 saturation of 100% on room air. Patient's lung exam was clear. Patient does have trace to 1 pitting edema to lower extremities. Her lower extremities are erythematous but not warm to the touch, this is more consistent with a chronic dermatitis due to her edema. I ordered and evaluation to include CBC, CMP, BNP, troponin, EKG, chest x-ray one view. Patient will be treated with morphine 4 mg IV and furosemide 60 mg mg IV. 0009: Patient is feeling better after the above treatment, her pain did improved but she required a 2nd dose of morphine 4 mg IV. The patient had a urine output of 800 cc and states that her shortness of breath feels better. Patient's laboratory evaluation was unchanged from her baseline The patient will be discharged home. She was advised to continue taking her medications as prescribed She was given a prescription for morphine 15 mg, 1 pill every 6 hours as needed for pain. Differential Diagnosis Differential Diagnoses: The differential diagnosis associated with the presentation includes Differential diagnosis includes was not limited to congestive heart failure, pneumonia, fluid overload, cellulitis Admission/Observation Consideration of admission/observation: Escalation of care including admission/observation considered Lab Data MDM Lab Attestation statement: I reviewed the patient's lab results. My interpretation patient's laboratory evaluation is as follows: Microcytic anemia with an H&H of 9 and 32, MCV 68.3 high sensitive troponin I was elevated at 62.8, BNP is elevated at 2515. These abnormalities are chronic. 01/07/23 21:56 01/07/23 21:56 Labs: Lab Results 01/07/23 01/07/23 01/07/23 Range/Units 21:56 21:56 21:56 WBC 4.9 (4.8-10.8) X10*3/uL RBC 4.82 (4.20-5.50) X10*6/uL Hgb 9.0 L (12.0-16.0) g/dl Hct 32.9 L (37.0-47.0) % MCV 68.3 L (80.0-98.0) fL MCH 18.7 L (27.0-33.0) pg MCHC 27.4 L (31.0-35.0) g/dl RDW 21.4 H (11.0-16.0) % Plt Count 112 L D (160-400) X10*3/uL MPV Not Reportable Immature Gran % (Auto) 0.4 (0.0-0.4) % Neut % (Auto) 67.7 (45-73) % Lymph % (Auto) 21.6 (20-40) % Platte % (Auto) 8.5 (2-11) % Eos % (Auto) 1.4 (0-4) % Baso % (Auto) 0.4 (0-2) % Lymph # (Auto) 1.1 L (1.2-4.9) X10*3/uL Platte # (Auto) 0.4 (0.1-1.2) X10*3/uL Eos # (Auto) 0.1 (0.0-0.4) X10*3/uL Baso # (Auto) 0.0 (0.0-0.2) X10*3/uL Abs Immat Gran (auto) 0.02 (0.00-0.03) X10*3/uL Absolute Neuts (auto) 3.3 (2.0-8.3) x10*3/uL Absolute Nucleated RBC 0.030 H (0.0-0.012) X10*3/uL Nucleated RBC % (auto) 0.6 H (0.0-0.2) /100WBC Smear Tech's Comments VERIFIED PT (11.1-13.3) SEC INR (0.9-1.1) Sodium 138 (135-145) mmol/L Potassium 3.7 (3.3-5.1) mmol/L Chloride 101 (96-108) mmol/L Carbon Dioxide 24 (22-29) mmol/L Anion Gap 17 (12-20) BUN 14 (9-16) mg/dL Creatinine 0.91 (0.5-1.4) mg/dL Estim Creat Clear Calc 60.2 Estimated GFR > 60 Random Glucose 107 (60-115) mg/dL Calcium 9.1 D (8.4-10.2) mg/dL Total Bilirubin 1.3 H (0.0-1.0) mg/dL AST 14 (5-31) U/L ALT 9 (0-31) U/L Alkaline Phosphatase 100 (39-117) U/L Troponin I High Sens (<3.5-17.0) ng/L B-Natriuretic Peptide 2515 H (<100) pg/mL Total Protein 6.8 (6.5-8.0) g/dL Albumin 3.6 (3.5-5.0) g/dL 01/07/23 01/07/23 Range/Units 21:56 21:56 WBC (4.8-10.8) X10*3/uL RBC (4.20-5.50) X10*6/uL Hgb (12.0-16.0) g/dl Hct (37.0-47.0) % MCV (80.0-98.0) fL MCH (27.0-33.0) pg MCHC (31.0-35.0) g/dl RDW (11.0-16.0) % Plt Count (160-400) X10*3/uL MPV Immature Gran % (Auto) (0.0-0.4) % Neut % (Auto) (45-73) % Lymph % (Auto) (20-40) % Platte % (Auto) (2-11) % Eos % (Auto) (0-4) % Baso % (Auto) (0-2) % Lymph # (Auto) (1.2-4.9) X10*3/uL Platte # (Auto) (0.1-1.2) X10*3/uL Eos # (Auto) (0.0-0.4) X10*3/uL Baso # (Auto) (0.0-0.2) X10*3/uL Abs Immat Gran (auto) (0.00-0.03) X10*3/uL Absolute Neuts (auto) (2.0-8.3) x10*3/uL Absolute Nucleated RBC (0.0-0.012) X10*3/uL Nucleated RBC % (auto) (0.0-0.2) /100WBC Smear Tech's Comments PT 16.4 H (11.1-13.3) SEC INR 1.3 H (0.9-1.1) Sodium (135-145) mmol/L Potassium (3.3-5.1) mmol/L Chloride (96-108) mmol/L Carbon Dioxide (22-29) mmol/L Anion Gap (12-20) BUN (9-16) mg/dL Creatinine (0.5-1.4) mg/dL Estim Creat Clear Calc Estimated GFR Random Glucose (60-115) mg/dL Calcium (8.4-10.2) mg/dL Total Bilirubin (0.0-1.0) mg/dL AST (5-31) U/L ALT (0-31) U/L Alkaline Phosphatase (39-117) U/L Troponin I High Sens 62.8 H* D (<3.5-17.0) ng/L B-Natriuretic Peptide (<100) pg/mL Total Protein (6.5-8.0) g/dL Albumin (3.5-5.0) g/dL Independent Interpretation I performed an independent interpretation of an: EKG and Plain X-Ray (Chest X) Interpretation: My independent interpretation patient's one-view chest x-ray is as follows: Increased interstitial markings with bilateral small pleural effusions, improved compared to chest x-ray on 12/01/2022 My independent interpretation the patient's 12 EKG done at 18:49 hours is as follows: Normal sinus rhythm rate of 97, normal [place] interval, QRS duration QTC interval, low voltage in the limb leads, Q-waves V1 and V2, no ST segment elevation, no ST segment depression, nonspecific T-wave abnormalities Radiology Impression Discussion of test interpretation with radiology: I have reviewed the radiologist's reading. Radiologist Impression: XR chest 1V IMPRESSION: Persistent bilateral basilar opacities consistent with infiltrates. Continued follow-up is recommended. Likely improving fluid on the right. Persistent probable pleural effusion on the left. Dictated By:Thai Jerry MD External Record Review External record reviewed: Inpatient record and Other ([place] prescription monitoring program) Prescription Management I considered prescription management with: Pain Medication Chronic Conditions Patient?s care impacted by: Diabetes and Hypertension Discharge Plan Discharge Clinical Impression: Back pain, Acute dyspnea, Fluid overload Patient Disposition: Home, Self-Care Additional Instructions: Your laboratory evaluation was unchanged from your baseline blood work which is reassuring. Your chest x-ray revealed only small amount of fluid in your lungs and was improved compared to previous chest x-ray. You received Lasix 60 mg IV and you put out 800 mL of urine. Continue taking your medications as prescribed by your providers. Take Tylenol (acetaminophen) 2 pills every 4-6 hours as needed for pain. For pain not relieved by Tylenol take morphine 15 mg pills, 1 pill every 4 hours as needed for pain. This medication will make you sleepy, do not drive or work while taking this medication. Morphine is a narcotic medication and can be addicting. If you are concerned about addiction you can ask the pharmacist for less pills or do not get this prescription filled. Follow-up with your doctor in 2 days. Please return to the emergency department if your symptoms get worse or if you develop any symptoms that are concerning to you. Prescriptions: New morphine 15 mg tablet 15 mg PO Q4-6H PRN (Reason: pain) Qty: 10 0RF Rx Instructions: The patient may ask for partial fill; Partial Fill upon patient request. No Action oxycodone 5 mg tablet 5 mg PO Q8H PRN (Reason: pain) Qty: 15 0RF Rx Instructions: Partial Fill upon patient request. albuterol sulfate 2.5 mg /3 mL (0.083 %) solution for nebulization 1 vial inhalation Q6H PRN (Reason: Wheezing) Qty: 90 0RF lisinopril 20 mg tablet 20 mg PO DAILY Qty: 30 0RF albuterol sulfate [Ventolin HFA] 90 mcg/actuation HFA aerosol inhaler 1 puff INHALATION Q4H PRN (Reason: Wheezing) Qty: 1 0RF Incruse Ellipta 62.5 mcg/actuation blister with device 1 puff PO DAILY Qty: 1 0RF glipizide 10 mg tablet 10 mg PO DAILY insulin glargine [Lantus Solostar U-100 Insulin] 100 unit/mL (3 mL) insulin pen 20 unit subcut BID fluticasone propion-salmeterol 115-21 mcg/actuation HFA aerosol inhaler 2 puff INHALATION BID Eliquis 5 mg tablet 5 mg PO BID atorvastatin 80 mg Tablet 80 mg PO BEDTIME 30 Days Qty: 30 0RF acetaminophen 325 mg Tablet 650 mg PO Q8H PRN (Reason: Pain, Mild (Pain Scale 1-3)) 30 Days Qty: 90 0RF carvedilol 3.125 mg Tablet 3.125 mg PO BID 30 Days Qty: 60 0RF Protocol: Hold for SBP/HR < HOLD for SBP < : 90 HOLD for HR < : 60 furosemide 40 mg tablet 40 mg PO BID Qty: 60 2RF clopidogrel 75 mg tablet 75 mg PO DAILY nicotine 21 mg/24 hr patch 24 hour 1 patch topical DAILY aspirin 81 mg tablet,delayed release (DR/EC) 81 mg PO DAILY Interventions: ED Discharge Assessment Last Done: 01/08/23 01:00 Discharge Date/Time: 01/08/23 01:05
[2023-01-07 18:35] VITALS: BP 114/70; PULSE 100; RESP 16; TEMP 36.5; O2SAT 100; BMI 20.4
--- NOTE | 2023-01-07 18:40 | ECG_ITS ---
Test Reason : Chest Pain Blood Pressure : / mmHG Vent. Rate : 097 BPM Atrial Rate : 097 BPM P-R Int : 158 ms QRS Dur : 082 ms QT Int : 372 ms P-R-T Axes : 084 079 092 degrees QTc Int : 472 ms Normal sinus rhythm Pulmonary disease pattern Nonspecific T wave abnormality Prolonged QT Abnormal ECG When compared with ECG of 05-DEC-2022 23:13, Premature ventricular complexes are no longer Present Nonspecific T wave abnormality, worse in Inferior leads Referred By: Maria Elena Phillips Electronically Signed By:LUANN SALAZAR MD
--- NOTE | 2023-01-07 19:15 | PC.NURSE ---
hospital education coordinator informed this rn that pt refusing bloodwork if not done via IV
--- NOTE | 2023-01-07 20:10 | PC.NURSE ---
this rn assisted pt into hospital bed. pt placed on tax professional. this rn attempted iv twice. 20g iv in L ac. positional flush unable to obtain blood work.
--- NOTE | 2023-01-07 20:29 | MHC.EDTECH ---
Pt asked me not to draw her blood. She is requesting to wait until she gets her IV in to have the blood drawn. She states she is a difficult draw. Maryanne zamudio. DARLEEN.
--- NOTE | 2023-01-07 20:55 | PC.NURSE ---
additonal rn attempted to place iv and obtain blood work. with no result. this rn made dr martinez aware. per md cancelled blood cultures and lactic acid
[2023-01-07 21:27] VITALS: BP 115/69; PULSE 97; RESP 25; TEMP 36.4; O2SAT 100
[2023-01-07] MEDS: Morphine Sulfate 4 MG/ML CARTRIDGE IVPUSH (21:59)
[2023-01-07 22:04] LABS: Basophils Percent Auto 0.4 % (0-2); Eosinophils Absolute Auto 0.1 X10*3/uL (0.0-0.4); Eosinophils Percent Auto 1.4 % (0-4); Hematocrit 32.9 % (37.0-47.0); Imm Gran Abs Auto 0.02 X10*3/uL (0.00-0.03); Imm Gran Pct Auto 0.4 % (0.0-0.4); Lymphocytes Absolute Auto 1.1 X10*3/uL (1.2-4.9); Lymphocytes Percent Auto 21.6 % (20-40); MANUAL DIFF FLAG SCAN; Mean Corpuscular HGB Conc 27.4 g/dl (31.0-35.0); Mean Corpuscular Hemoglobin 18.7 pg (27.0-33.0); Mean Corpuscular Volume 68.3 fL (80.0-98.0); Monocytes Absolute Auto 0.4 X10*3/uL (0.1-1.2); Monocytes Percent Auto 8.5 % (2-11); NRBC Pct Auto 0.6 /100WBC (0.0-0.2); Neutrophils Absolute Auto 3.3 x10*3/uL (2.0-8.3); Neutrophils Percent Auto 67.7 % (45-73); PLT CLUMP 1; Red Blood Count 4.82 X10*6/uL (4.20-5.50); Red Cell Distribution Width 21.4 % (11.0-16.0); SCAN SMEAR FLAG 1
[2023-01-07 22:07] LABS: White Blood Count 4.9 X10*3/uL (4.8-10.8)
[2023-01-07] MEDS: Furosemide 100 MG/10 ML VIAL 60 MG IVPUSH (22:08)
[2023-01-07 22:11] VITALS: BP 123/85; PULSE 96
[2023-01-07 22:18] LABS: INTERNATIONAL NORM RATIO 1.3 (0.9-1.1); Prothrombin Time 16.4 SEC (11.1-13.3)
[2023-01-07 22:24] LABS: B Type Natriuretic Peptide 2515 pg/mL (<100)
[2023-01-07 22:27] LABS: Alanine Aminotransferase 9 U/L (0-31); Albumin Level 3.6 g/dL (3.5-5.0); Alkaline Phosphatase 100 U/L (39-117); Anion Gap 17 (12-20); Aspartate Amino Transferase 14 U/L (5-31); Bilirubin Total 1.3 mg/dL (0.0-1.0); Blood Urea Nitrogen 14 mg/dL (9-16); Calcium 9.1 mg/dL (8.4-10.2); Carbon Dioxide 24 mmol/L (22-29); Chloride 101 mmol/L (96-108); Creatinine Clr Calc Pharmacy 60.2; Estimated Glomerular Filt Rate > 60; Glucose Random 107 mg/dL (60-115); Potassium 3.7 mmol/L (3.3-5.1); Sodium 138 mmol/L (135-145); Total Protein 6.8 g/dL (6.5-8.0)
[2023-01-07 22:40] LABS: Troponin-I High Sensitivity 62.8 ng/L (<3.5-17.0)
--- NOTE | 2023-01-07 23:00 | PC.NURSE ---
iv line infiltrated. dr valverde placed US guided 20g in R arm. pt tolerated well. bloodwork obtained and sent down to lab. pt medicated according to aug. pt placed on alarm security or surveillance monitor. infiltrated iv removed
[2023-01-07 23:10] LABS: Platelet Count 112 X10*3/uL (160-400)
[2023-01-07 23:17] LABS: SLIDE REVIEW VERIFIED
[2023-01-08 00:25] VITALS: BP 106/63; PULSE 100; RESP 17; TEMP 36.7; O2SAT 99
[2023-01-08] MEDS: Morphine Sulfate 4 MG/ML CARTRIDGE IVPUSH (00:50)
--- NOTE | 2023-01-08 01:00 | PC.NURSE ---
pt medicated according to aug. iv removed. vss. report given to ems prior to transport to home. pt given discharge packet. pt verbalized understanding of discharge plan
== END 2023-01-08 01:05 | disposition home or self-care (01) ==
PROVIDERS: Registered Nurse Emergency; Emergency Provider Emergency Medicine Emergency Medical Services
DX: M54.50 Low back pain, unspecified (principal); E87.70 Fluid overload, unspecified; R06.02 Shortness of breath; M79.671 Pain in right foot; R60.0 Localized edema; I11.0 Hypertensive heart disease with heart failure; I50.9 Heart failure, unspecified; E11.9 Type 2 diabetes mellitus without complications; F12.90 Cannabis use, unspecified, uncomplicated; F17.210 Nicotine dependence, cigarettes, uncomplicated; Z89.512 Acquired absence of left leg below knee; Z79.01 Long term (current) use of anticoagulants; Z79.82 Long term (current) use of aspirin; Z79.899 Other long term (current) drug therapy; Z79.4 Long term (current) use of insulin
CPT/HCPCS: 36415; 71045; 73630; 80053; 83880; 84484; 85025; 85610; 93005; 96374; 96375; 96376; 99284; J1940; J2270

== ENCOUNTER → 2023-01-07 18:40 | Outpatient (BNV) | payer OTHER, SELFPAY | PROVIDERS: Emergency Provider Emergency Medicine Emergency Medical Services; Visit Provider Internal Medicine Cardiovascular Disease | DX: R55 Syncope and collapse (principal) | CPT/HCPCS: 93010 ==

== ENCOUNTER 2023-01-10 21:10 | Inpatient (IN) | payer OTHER, SELFPAY ==
--- NOTE | ~2023-01-10 | CT_ITS ---
EXAMINATION: CT CHEST WITHOUT CONTRAST CLINICAL INFORMATION: History of COVID, persistent infiltrates. COMPARISON: CT chest 09/08/2022. TECHNIQUE: Multidetector volumetric CT imaging of the chest was done. Axial MIP volume rendering provided. Sagittal and coronal reformatted images were obtained. This CT examination was performed using dose optimization techniques as appropriate, variously including the following: *Automated exposure control *Adjustment of mA and/or kV according to patient size (this includes techniques or standardized protocols for targeted exams where dose is matched to indication/reason for exam; i.e. extremities or head) *Use of iterative reconstruction technique DLP: 259 mGy-cm FINDINGS: LUNGS: Increased size and number of multifocal airspace opacities involving the middle and lower lungs with new associated central lucencies compared to 09/08/2022, for example a large approximately 6 cm in length opacity in the left lower lobe posterior to the major fissure coronal image 50 series 8. Increased diffuse mild to moderate bronchial wall thickening compared to 09/08/2022. A few pulmonary nodules are new, for instance a solid 0.4 cm nodule in the right lower lobe image 335 series 5. Central airways are patent. MEDIASTINUM: Stable cardiomegaly. Trace amount of pericardial fluid. Normal appearance of the thyroid gland. No mediastinal lymphadenopathy. Evaluation of the hilar structures is very limited in the absence of IV contrast. CORONARY ARTERY CALCIFICATION: Extensive coronary artery calcifications. PLEURA: Moderate size bilateral pleural effusions are not significantly changed. No pneumothorax. AXILLA: Redemonstration of scattered bilateral calcifications and subcentimeter nodules in both breasts. No axillary lymphadenopathy. UPPER ABDOMEN: Trace volume of ascites. OSSEOUS STRUCTURES: No acute or aggressive appearing osseous findings. Degenerative changes of the spine. CT/CT chest wo IV con IMPRESSION: 1. Increased size and number of multifocal airspace opacities involving the middle and lower lungs with new associated central lucencies. These findings are worrisome for central necrosis/cavitation which could be seen with septic emboli and pulmonary abscesses. There is increased bronchial wall thickening as well as a few new subcentimeter pulmonary nodules, that are also suggestive of worsening infectious/inflammatory process. Underlying malignancy cannot be entirely excluded and close attention on follow-up is recommended. 2. Moderate size bilateral pleural effusions are not significantly changed. 3. Scattered bilateral breast calcifications and subcentimeter nodules, indeterminate. Correlation with mammographic examinations is recommended. This critical result was discussed with Matti Lindquist at 01/10/2023 11:46 PM and it was ascertained that the content and urgency of the report was understood at the time of direct communication.
--- NOTE | ~2023-01-10 | XR_ITS ---
EXAMINATION: XR CHEST CLINICAL INFORMATION: Dyspnea. COMPARISON: Chest radiograph 01/07/2023. TECHNIQUE: Frontal view of the chest was obtained. FINDINGS: Stable appearance of the cardiomediastinal silhouette. Slightly less dense airspace opacities in the lower lungs, some of which on the right side are somewhat rounded and nodular in appearance. Likely trace amount of residual left-sided pleural fluid. No pneumothorax. No acute osseous findings. XR/XR chest 1V IMPRESSION: Slightly less dense airspace opacities in the lower lungs, some of which are somewhat rounded and nodular in appearance. Recommend continued follow-up to ensure resolution as underlying nodules/malignancy is not excluded.
[2023-01-10 21:21] VITALS: BP 111/70; PULSE 90; RESP 18; TEMP 36.7; O2SAT 100; BMI 26.6
--- NOTE | 2023-01-10 21:28 | ECG_ITS ---
Test Reason : sob Blood Pressure : / mmHG Vent. Rate : 093 BPM Atrial Rate : 093 BPM P-R Int : 154 ms QRS Dur : 086 ms QT Int : 406 ms P-R-T Axes : 070 084 098 degrees QTc Int : 504 ms Normal sinus rhythm Low voltage QRS Nonspecific T wave abnormality Prolonged QT Abnormal ECG When compared with ECG of 07-JAN-2023 18:49, No significant change was found Referred By: Generic ED Physician Electronically Signed By:WENDY JIMENES
--- NOTE | 2023-01-10 21:53 | MHC.EDTECH ---
This tech brought pt to triage area, EKG taken and Labs were drawn and sent to lab. pt placed back to waiting area.
[2023-01-10 21:54] LABS: MANUAL DIFF FLAG NO
[2023-01-10 22:00] LABS: Basophils Percent Auto 0.6 % (0-2); Eosinophils Absolute Auto 0.1 X10*3/uL (0.0-0.4); Eosinophils Percent Auto 2.1 % (0-4); Hematocrit 34.9 % (37.0-47.0); Hemoglobin 9.6 g/dl (12.0-16.0); Imm Gran Abs Auto 0.02 X10*3/uL (0.00-0.03); Imm Gran Pct Auto 0.4 % (0.0-0.4); Lymphocytes Absolute Auto 1.2 X10*3/uL (1.2-4.9); Lymphocytes Percent Auto 26.3 % (20-40); Mean Corpuscular HGB Conc 27.5 g/dl (31.0-35.0); Mean Corpuscular Hemoglobin 18.7 pg (27.0-33.0); Mean Corpuscular Volume 67.9 fL (80.0-98.0); Monocytes Absolute Auto 0.4 X10*3/uL (0.1-1.2); Monocytes Percent Auto 8.7 % (2-11); NRBC Pct Auto 0.4 /100WBC (0.0-0.2); Neutrophils Absolute Auto 2.9 x10*3/uL (2.0-8.3); Neutrophils Percent Auto 61.9 % (45-73); Red Blood Count 5.14 X10*6/uL (4.20-5.50); Red Cell Distribution Width 21.9 % (11.0-16.0); White Blood Count 4.7 X10*3/uL (4.8-10.8)
[2023-01-10 22:17] LABS: Anion Gap 17 (12-20); Blood Urea Nitrogen 10 mg/dL (9-16); Calcium 8.7 mg/dL (8.4-10.2); Carbon Dioxide 24 mmol/L (22-29); Chloride 103 mmol/L (96-108); Creatinine Clr Calc Pharmacy 70.8; Estimated Glomerular Filt Rate > 60; Glucose Random 50 mg/dL (60-115); Potassium 3.5 mmol/L (3.3-5.1); Sodium 140 mmol/L (135-145)
--- NOTE | 2023-01-10 22:55 | ED_ITS ---
HPI - SOB/Dyspnea General Chief Complaint: Dyspnea Stated Complaint: difficultly breathing Time Seen by Provider: 01/10/23 22:55 Source: patient Mode of arrival: ambulatory Limitations: no limitations History of Present Illness HPI Narrative: Patient is 52 years old with past medical history of COPD, CHF, diabetes, hypertension, neuropathy, CAD status post LAD stent 2 months ago PVD status post left BKA done on 09/21/2022 was tested positive for COVID on 12/05/22 with multifocal opacities in the lung comes back as she is not feeling good for last 24 hours patient has been sleepy after arrival she is on morphine 15 mg twice daily which she been taking for some time denies any use of any other substance or extra dose of morphine feels tired with cough no fever no chills was short winded earlier Related Data Home Medications Medication Instructions Recorded Confirmed clopidogrel 75 mg tablet 75 mg PO DAILY 11/24/22 12/22/22 glipizide 5 mg-metformin 500 mg 2 tab PO BID 11/24/22 12/22/22 tablet nicotine 21 mg/24 hr daily 1 patch topical DAILY 11/26/22 12/22/22 transdermal patch aspirin 81 mg tablet,delayed 81 mg PO DAILY 12/01/22 12/22/22 release gabapentin 300 mg capsule 600 mg PO BID 12/06/22 12/22/22 montelukast 10 mg tablet 10 mg PO BEDTIME 12/06/22 12/22/22 Previous Rx's Medication Instructions Recorded acetaminophen 325 mg tablet 650 mg PO Q8H PRN Pain, Mild (Pain 09/21/22 Scale 1-3) 30 days #90 tabs atorvastatin 80 mg tablet 80 mg PO BEDTIME 30 days #30 tabs 09/21/22 carvedilol 3.125 mg tablet 3.125 mg PO BID 30 days #60 tabs 09/21/22 polyethylene glycol 3350 17 gram 17 g PO DAILY PRN Constipation 5 09/21/22 oral powder packet days #30 ea albuterol sulfate 2.5 mg/3 mL 1 vial inhalation Q6H PRN Wheezing 09/29/22 (0.083 %) solution for nebulization #90 mL albuterol sulfate 90 mcg/actuation 1 puff inhalation Q4H PRN Wheezing 09/29/22 aerosol inhaler (Ventolin HFA) #1 g lisinopril 20 mg tablet 20 mg PO DAILY #30 tabs 09/29/22 umeclidinium 62.5 mcg/actuation 1 puff PO DAILY #1 ea 09/29/22 blister powder for inhalation (Incruse Ellipta) ipratropium 0.5 mg-albuterol 3 mg 3 ml inhalation TID #90 mL 10/14/22 (2.5 mg base)/3 mL nebulization soln furosemide 40 mg tablet 40 mg PO BID #60 tabs 10/27/22 silver-hydrocolloid dressing 1.2 1 ea topical Q OTHER DAY 1 month 11/22/22 %-3.5 X 4 (Aquacel-AG) #10 ea oxycodone 5 mg tablet 5 mg PO Q8H PRN pain #15 tabs 01/03/23 morphine 15 mg immediate release 15 mg PO Q4-6H PRN pain #10 tabs 01/08/23 tablet Allergies Allergy/AdvReac Type Severity Reaction Status Date / Time Penicillins [PENICILLINS] Allergy Severe RASH Verified 01/07/23 18:41 amoxicillin [AMOXICILLIN] Allergy Intermediate HIVES Verified 01/07/23 18:41 perflutren [From Definity] AdvReac Back Pain Verified 01/07/23 18:41 Review of Systems Review of Systems: Yes all other systems are reviewed and are negative PMF Past Medical History Medical History Asthma Atherosclerotic cardiovascular disease Atrial tachycardia Below-knee amputation of left lower extremity Cellulitis in diabetic foot COPD (chronic obstructive pulmonary disease) Coronary artery disease Diabetes Diabetic foot infection Essential hypertension GERD (gastroesophageal reflux disease) Hyperglycemia due to diabetes mellitus Hypertension Ischemic cardiomyopathy Osteomyelitis 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 PAD (peripheral artery disease) Surgical History History of esophagogastroduodenoscopy (EGD) History of toe surgery (09/22/21) Status post below-knee amputation of left lower extremity (09/20/22) Family History Family History Mother Hx of CABG Sister CAD (coronary artery disease) Social History Social History Household Members: Significant Other and Children Housing: Apartment Do you presently have visiting nurse or other home services: Yes Unable to assess alcohol history related to: Refusing to respond Alcohol intake: current Alcohol intake frequency: 3 or more drinks per day Alcohol type: hard liquor Patient Tobacco Use Status: Tobacco use Unknown Tobacco use type: Cigarette Cigarette Packs Per Day: 0.5 Cigarettes Per Day: 6 Years Smoked: 43 Smoked in Last 30 Days: Yes e-Cigarette/Vaping Use: Currently Using Second Hand Smoke Exposure: Yes Use of substances other than those prescribed or required for medical reasons: No Substance Use Type: Marijuana Substance Use Frequency: Chronic Longstanding Last Used Substance: Unknown Any prior treatment program specific to substance use: No Advance Directives: Yes Advance Directives on File: Yes Advance Directives Date on File: 09/22/22 service: No Current occupational status: disabled Physical Exam Vital Signs: Vital Signs: Last Vital Signs Temp 98.6 F 01/11/23 00:00 Pulse 91 01/11/23 00:00 Resp 17 01/11/23 00:00 BP 119/78 01/11/23 00:00 Pulse Ox 100 01/11/23 00:00 O2 Del Method Room Air 01/11/23 00:00 BMI result Body Mass Index 26.6 Appearance: Alert. Oriented X3. No acute distress. Eyes: PERRLA, No Nystagmus ENT: Pharynx normal. Oral Mucosa moist Neck: Normal inspection. Neck supple. CVS: Normal heart rate and rhythm. Pulses normal. Respiratory: No respiratory distress. Equal air entry bilateral, bilateral diffuse crackles no wheezing Abdomen: Soft and nontender. Bowel sounds are present, no mass palpable, no CVA tenderness Skin: Skin warm and dry. Normal skin color. Normal skin turgor. Extremities: ++lower extremity edema. No calf tenderness left BKA edematous b/l lower extremity Neuro: Oriented X 3. No motor deficit. No sensory deficit.No cerebellar signs , cranial nerves II-XII intact Medical Decision Making Medical Decision Making MDM Narrative: Patient with multifocal pneumonia with normal WBC count CT scan of the chest s howed worsening of the infiltrate with early cavitation questionable abscess formation. Will admit patient for IV antibiotic and re-evaluation Differential Diagnosis Differential Diagnoses: The differential diagnosis associated with the p resentation includes Substance abuse/COPD/multifocal pneumonia/viral pneumonia/aspiration pneumonia/CHF Consult Healthcare Provider Management of the patient was discussed with: Hospitalist Lab Data MDM Lab Attestation statement: I reviewed the patient's lab results. 01/10/23 21:50 01/10/23 21:50 Labs: Lab Results 01/10/23 01/10/23 01/10/23 Range/Units 21:50 21:50 23:05 WBC 4.7 L (4.8-10.8) X10*3/uL RBC 5.14 (4.20-5.50) X10*6/uL Hgb 9.6 L (12.0-16.0) g/dl Hct 34.9 L (37.0-47.0) % MCV 67.9 L (80.0-98.0) fL MCH 18.7 L (27.0-33.0) pg MCHC 27.5 L (31.0-35.0) g/dl RDW 21.9 H (11.0-16.0) % Plt Count 96 L (160-400) X10*3/uL MPV Not Reportable Immature Gran % (Auto) 0.4 (0.0-0.4) % Neut % (Auto) 61.9 (45-73) % Lymph % (Auto) 26.3 (20-40) % Clinton % (Auto) 8.7 (2-11) % Eos % (Auto) 2.1 (0-4) % Baso % (Auto) 0.6 (0-2) % Lymph # (Auto) 1.2 (1.2-4.9) X10*3/uL Clinton # (Auto) 0.4 (0.1-1.2) X10*3/uL Eos # (Auto) 0.1 (0.0-0.4) X10*3/uL Baso # (Auto) 0.0 (0.0-0.2) X10*3/uL Abs Immat Gran (auto) 0.02 (0.00-0.03) X10*3/uL Absolute Neuts (auto) 2.9 (2.0-8.3) x10*3/uL Absolute Nucleated RBC 0.020 H (0.0-0.012) X10*3/uL Nucleated RBC % (auto) 0.4 H (0.0-0.2) /100WBC Sodium 140 (135-145) mmol/L Potassium 3.5 (3.3-5.1) mmol/L Chloride 103 (96-108) mmol/L Carbon Dioxide 24 (22-29) mmol/L Anion Gap 17 (12-20) BUN 10 (9-16) mg/dL Creatinine 0.87 (0.5-1.4) mg/dL Estim Creat Clear Calc 70.8 Estimated GFR > 60 POC Glucose 91 (60-115) mg/dL Random Glucose 50 L* (60-115) mg/dL Lactic Acid (0.5-2.0) mmol/L Calcium 8.7 (8.4-10.2) mg/dL Iron 16 L (30-160) mcg/dL TIBC 373 (228-428) mcg/dL % Saturation 4 L (15-50) % Unsat Iron Binding 357 ug/dL 01/11/23 Range/Units 00:35 WBC (4.8-10.8) X10*3/uL RBC (4.20-5.50) X10*6/uL Hgb (12.0-16.0) g/dl Hct (37.0-47.0) % MCV (80.0-98.0) fL MCH (27.0-33.0) pg MCHC (31.0-35.0) g/dl RDW (11.0-16.0) % Plt Count (160-400) X10*3/uL MPV Immature Gran % (Auto) (0.0-0.4) % Neut % (Auto) (45-73) % Lymph % (Auto) (20-40) % Clinton % (Auto) (2-11) % Eos % (Auto) (0-4) % Baso % (Auto) (0-2) % Lymph # (Auto) (1.2-4.9) X10*3/uL Clinton # (Auto) (0.1-1.2) X10*3/uL Eos # (Auto) (0.0-0.4) X10*3/uL Baso # (Auto) (0.0-0.2) X10*3/uL Abs Immat Gran (auto) (0.00-0.03) X10*3/uL Absolute Neuts (auto) (2.0-8.3) x10*3/uL Absolute Nucleated RBC (0.0-0.012) X10*3/uL Nucleated RBC % (auto) (0.0-0.2) /100WBC Sodium (135-145) mmol/L Potassium (3.3-5.1) mmol/L Chloride (96-108) mmol/L Carbon Dioxide (22-29) mmol/L Anion Gap (12-20) BUN (9-16) mg/dL Creatinine (0.5-1.4) mg/dL Estim Creat Clear Calc Estimated GFR POC Glucose (60-115) mg/dL Random Glucose (60-115) mg/dL Lactic Acid 1.1 (0.5-2.0) mmol/L Calcium (8.4-10.2) mg/dL Iron (30-160) mcg/dL TIBC (228-428) mcg/dL % Saturation (15-50) % Unsat Iron Binding ug/dL Independent Interpretation I performed an independent interpretation of an: EKG Interpretation: Normal sinus rhythm heart rate 93 beats per minute nonspecific ST-T changes no acute ischemia Radiology Impression Discussion of test interpretation with radiology: I have reviewed the radiologist's reading. Radiologist Impression: CT/CT chest wo IV con IMPRESSION: 1.? Increased size and number of multifocal airspace opacities involving the middle and lower lungs with new associated central lucencies. These findings are worrisome for central necrosis/cavitation which could be seen with septic emboli and pulmonary abscesses. There is increased bronchial wall thickening as well as a few new subcentimeter pulmonary nodules, that are also suggestive of worsening infectious/inflammatory process. Underlying malignancy cannot be entirely excluded and close attention on follow-up is recommended. 2.? Moderate size bilateral pleural effusions are not significantly changed. 3.? Scattered bilateral breast calcifications and subcentimeter nodules, indeterminate. Correlation with mammographic examinations is recommended. ? This critical result was discussed with Matti Lindquist at 01/10/2023 11:46 PM and it was ascertained that the content and urgency of the report was understood at the time of direct communication. Discharge Plan Discharge Clinical Impression: Multifocal pneumonia Patient Disposition: Admitted As Inpatient
[2023-01-10 22:59] LABS: Platelet Count 96 X10*3/uL (160-400)
[2023-01-10 23:11] LABS: Glucose, Whole Blood 91 mg/dL (60-115)
[2023-01-11] VITALS (9 sets, daily range): BP systolic 104–141; BP diastolic 57–84; PULSE 87–92; RESP 10–18; TEMP 36.2–37; O2SAT 97–100
--- NOTE | 2023-01-11 00:31 | PM.IMHP ---
History of Present Illness Date of Service: 01/11/23 Chief Complaint: Not feeling well This is a 52-year-old female with pertinent history of COPD not on home oxygen, congestive heart failure with reduced ejection fraction, hwd-idwgvko-ttlqjzfry diabetes mellitus with neuropathy, essential hypertension, CAD status post LAD stent, peripheral vascular disease status post left BKA presents to the emergency department for not feeling well. Patient is unable to elaborate and only states that she is not feeling well. She is lethargic and with poor p.o. intake. Patient states she has generalized body aches with malaise. She denies fever, chills, shortness of breath, chest discomfort, palpitations, changes in urinary or bowel habits. In the emergency department, imaging with multifocal airspace opacities with central lucencies. Review of Systems Constitutional: Constitutional: Reports body ache(s), Reports fatigue, Reports lethargy and Reports malaise Cardiovascular: Cardiovascular: Reports no additional cardiovascular complaints Respiratory: Respiratory: Reports no additional respiratory complaints Gastrointestinal: Gastrointestinal: Reports no additional gastrointestinal complaints Genitourinary: Genitourinary: Reports no additional female genitourinary complaints Endocrine: Endocrine: Reports fatigue [facility] Medical History Asthma Atherosclerotic cardiovascular disease Atrial tachycardia Below-knee amputation of left lower extremity Cellulitis in diabetic foot COPD (chronic obstructive pulmonary disease) Coronary artery disease Diabetes Diabetic foot infection Essential hypertension GERD (gastroesophageal reflux disease) Hyperglycemia due to diabetes mellitus Hypertension Ischemic cardiomyopathy Osteomyelitis 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 PAD (peripheral artery disease) Family History Mother Hx of CABG Sister CAD (coronary artery disease) Surgical History History of esophagogastroduodenoscopy (EGD) History of toe surgery (09/22/21) Status post below-knee amputation of left lower extremity (09/20/22) Social History Household Members: Significant Other and Children Housing: Apartment Do you presently have visiting nurse or other home services: Yes Unable to assess alcohol history related to: Refusing to respond Alcohol intake: current Alcohol intake frequency: 3 or more drinks per day Alcohol type: hard liquor Patient Tobacco Use Status: Tobacco use Unknown Tobacco use type: Cigarette Cigarette Packs Per Day: 0.5 Cigarettes Per Day: 6 Years Smoked: 43 Smoked in Last 30 Days: Yes e-Cigarette/Vaping Use: Currently Using Second Hand Smoke Exposure: Yes Use of substances other than those prescribed or required for medical reasons: No Substance Use Type: Marijuana Substance Use Frequency: Chronic Longstanding Last Used Substance: Unknown Any prior treatment program specific to substance use: No Advance Directives: Yes Advance Directives on File: Yes Advance Directives Date on File: 09/22/22 service: No Current occupational status: disabled Meds Allergies Allergy/AdvReac Type Severity Reaction Status Date / Time Penicillins [PENICILLINS] Allergy Severe RASH Verified 01/07/23 18:41 amoxicillin [AMOXICILLIN] Allergy Intermediate HIVES Verified 01/07/23 18:41 perflutren [From Definity] AdvReac Back Pain Verified 01/07/23 18:41 Home Medications Medication Instructions Recorded Confirmed Last Taken Type clopidogrel 75 mg tablet 75 mg PO DAILY 11/24/22 12/22/22 Unknown History glipizide 5 mg-metformin 500 mg 2 tab PO BID 11/24/22 12/22/22 Unknown History tablet nicotine 21 mg/24 hr daily 1 patch topical DAILY 11/26/22 12/22/22 Unknown History transdermal patch aspirin 81 mg tablet,delayed 81 mg PO DAILY 12/01/22 12/22/22 Unknown History release gabapentin 300 mg capsule 600 mg PO BID 12/06/22 12/22/22 Unknown History montelukast 10 mg tablet 10 mg PO BEDTIME 12/06/22 12/22/22 Unknown History Physical Exam Vital Signs and Narrative: Vital Signs: Last Vital Signs Temp 98.1 F 01/10/23 21:21 Pulse 90 01/10/23 21:21 Resp 18 01/10/23 21:21 BP 111/70 01/10/23 21:21 Pulse Ox 100 01/10/23 21:21 O2 Del Method Room Air 01/10/23 21:21 BMI result Body Mass Index 26.6 Middle-aged female lying in bed in mild distress Neck supple, no JVD Irregular rate and rhythm, S1-S2 heard Bilateral crackles without wheezing Abdomen soft nontender, no guarding, no rigidity Patient is drowsy and awakens to verbal stimulus, oriented to self, place and person ; no focal motor deficit Extremity:?Left BKA Results Labs 01/10/23 21:50 01/10/23 21:50 Labs: Laboratory Results - last 24 hr 01/10/23 01/10/23 01/10/23 21:50 21:50 23:05 MCV 67.9 L MCH 18.7 L MCHC 27.5 L RDW 21.9 H Plt Count 96 L MPV Not Reportable Immature Gran % (Auto) 0.4 Neut % (Auto) 61.9 Lymph % (Auto) 26.3 Hawkins % (Auto) 8.7 Eos % (Auto) 2.1 Baso % (Auto) 0.6 Lymph # (Auto) 1.2 Hawkins # (Auto) 0.4 Eos # (Auto) 0.1 Baso # (Auto) 0.0 Abs Immat Gran (auto) 0.02 Absolute Neuts (auto) 2.9 Absolute Nucleated RBC 0.020 H Nucleated RBC % (auto) 0.4 H Anion Gap 17 Estim Creat Clear Calc 70.8 Estimated GFR > 60 POC Glucose 91 Random Glucose 50 L* Calcium 8.7 Imaging Radiologist's Impressions: Impressions Chest X-Ray 01/10/23 22:25 IMPRESSION: Slightly less dense airspace opacities in the lower lungs, some of which are somewhat rounded and nodular in appearance. Recommend continued follow-up to ensure resolution as underlying nodules/malignancy is not excluded. Chest CT 01/10/23 23:20 IMPRESSION: 1. Increased size and number of multifocal airspace opacities involving the middle and lower lungs with new associated central lucencies. These findings are worrisome for central necrosis/cavitation which could be seen with septic emboli and pulmonary abscesses. There is increased bronchial wall thickening as well as a few new subcentimeter pulmonary nodules, that are also suggestive of worsening infectious/inflammatory process. Underlying malignancy cannot be entirely excluded and close attention on follow-up is recommended. 2. Moderate size bilateral pleural effusions are not significantly changed. 3. Scattered bilateral breast calcifications and subcentimeter nodules, indeterminate. Correlation with mammographic examinations is recommended. This critical result was discussed with Matti Lindquist at 01/10/2023 11:46 PM and it was ascertained that the content and urgency of the report was understood at the time of direct communication. Assessment and Plan (1) Multifocal pneumonia: Status: Acute Plan This is a 52-year-old female with pertinent history of COPD not on home oxygen, congestive heart failure with reduced ejection fraction, vyi-ebleleo-rnqyfaznd diabetes mellitus with neuropathy, essential hypertension, CAD status post LAD stent, peripheral vascular disease status post left BKA presents to the emergency department for not feeling well. #.? Multifocal airspace opacities with central lucencies, concerning for cavitation with septic emboli versus pulmonary abscess. Will admit patient and initiate empiric IV antibiotics. Blood culture pending. Consulting pulmonology, appreciate assistance. Obtaining echo #. Hypoglycemia in a patient with twz-dwmkmwl-atugfvdmk diabetes mellitus, likely due to pulmonary infection. Resolved with p.o. intake in the ER. Continue Accu-Cheks with sliding scale insulin and p.r.n. hypoglycemia protocol. Hold glipizide and metformin #.? Congestive heart failure with reduced ejection fraction.? Continue Coreg, lisinopril and furosemide #.? Coronary artery disease status post stent to proximal LAD.? Continue beta-connor, statin and Plavix #.? Essential hypertension.? Continue home antihypertensives #.? Tobacco use disorder. Counseled regarding cessation. Offering nicotine patch #. Microcytic anemia. Obtaining iron panel #. Thrombocytopenia likely in the setting of infection Med rec pending DVT prophylaxis: Defer Lovenox due to thrombocytopenia. Full code Admit as inpatient and will require two night minimum hospital stay for IV antibiotics.? Specialist consult pending Time Spent With Patient Time: Total time managing care of this patient today ____ minutes. Quality Stroke Does the patient have a stroke diagnosis?: No VTE Prior VTE?: No VTE Risk Level:: Medical - moderate - high VTE Device Contraindication: Treatment Not Indicated VTE Drug Contraindication: Treatment Not Indicated
[2023-01-11 00:54] LABS: Lactic Acid 1.1 mmol/L (0.5-2.0)
[2023-01-11 01:01] LABS: COVID-19 Test Negative (Negative); IDNOW Serial# 6674DD1D
[2023-01-11 01:12] LABS: Iron 16 mcg/dL (30-160); Percent Iron Saturation 4 % (15-50); Total Iron Binding Capacity 373 mcg/dL (228-428); Unsaturated Iron Binding 357 ug/dL
[2023-01-11] MEDS: Piperacillin Sodium/Tazobactam 3.375 GM in 0.9 % Sodium Chloride 50 ML IV (01:59)
[2023-01-11] MEDS: vancomycin HCL 1,000 MG, vancomycin HCL 750 MG in 0.9 % Sodium Chloride 500 ML 267.5 MG IV (02:18)
--- NOTE | 2023-01-11 02:43 | MHC.EDTECH ---
RN Informed Tech Patient was incontinent. Tech gathered supplies ( Clean sheet, Clean Kelvin, Warm Wipes, Pads, and Pure wick). Cleaned up patient, Changed Bedding. Took off EKG Leads. Gave her a pillow and [place]. PT is Complaining about Left leg pain. RN Aware.
--- NOTE | 2023-01-11 03:06 | PC.NURSE ---
patient in bed with eyes open patient showing no distress at this time patient received a new dressing on the BKA patient received all antibiotics with no issues patient in the process of being admitted to the hospital for further treatment patient has a 20g in the left AC patient is being placed on a monitor to observe the oxygen level patient will continue to be monitored for safety patient is waiting on a assigned bed
[2023-01-11 05:42] LABS: MANUAL DIFF FLAG NO
[2023-01-11 05:45] LABS: Basophils Percent Auto 0.5 % (0-2); Eosinophils Absolute Auto 0.1 X10*3/uL (0.0-0.4); Eosinophils Percent Auto 1.2 % (0-4); Hematocrit 32.4 % (37.0-47.0); Imm Gran Abs Auto 0.01 X10*3/uL (0.00-0.03); Imm Gran Pct Auto 0.2 % (0.0-0.4); Lymphocytes Percent Auto 24.3 % (20-40); Mean Corpuscular HGB Conc 27.8 g/dl (31.0-35.0); Mean Corpuscular Hemoglobin 18.7 pg (27.0-33.0); Mean Corpuscular Volume 67.4 fL (80.0-98.0); Monocytes Absolute Auto 0.5 X10*3/uL (0.1-1.2); Monocytes Percent Auto 10.8 % (2-11); Neutrophils Absolute Auto 2.6 x10*3/uL (2.0-8.3); Red Blood Count 4.81 X10*6/uL (4.20-5.50); Red Cell Distribution Width 21.7 % (11.0-16.0); White Blood Count 4.2 X10*3/uL (4.8-10.8)
[2023-01-11 05:46] LABS: Platelet Count 80 X10*3/uL (160-400)
[2023-01-11 06:04] LABS: Anion Gap 18 (12-20); Blood Urea Nitrogen 10 mg/dL (9-16); Calcium 8.6 mg/dL (8.4-10.2); Carbon Dioxide 23 mmol/L (22-29); Chloride 104 mmol/L (96-108); Creatinine Clr Calc Pharmacy 70.8; Estimated Glomerular Filt Rate > 60; Glucose Random 55 mg/dL (60-115); Potassium 3.5 mmol/L (3.3-5.1); Sodium 141 mmol/L (135-145)
[2023-01-11 06:15] LABS: Glucose, Whole Blood 61 mg/dL (60-115)
[2023-01-11] MEDS: Piperacillin Sodium/Tazobactam 4.5 GM in 0.9 % Sodium Chloride 100 ML IV ×3 (06:15→18:13)
--- NOTE | 2023-01-11 06:21 | PC.NURSE ---
patient in bed with eyes open patient was given 2 cups of orange juice due to sugar was 50 patient was rechecked in 15 minutes it went to 61 patient will be rechecked in 15 minutes again to make sure patient is in safe range patient is in the process of being admitted patient is waiting for a assigned bed
[2023-01-11 06:39] LABS: Glucose, Whole Blood 92 mg/dL (60-115)
--- NOTE | 2023-01-11 06:45 | PHA.PROG ---
Admission Date/Time: January 11, 2023 00:36 Indication: Respiratory Weight in k kg Adjusted body weight in Kg: [place] body weight in Kg: Obesity Dosing Indication % IBW: Serum Creatinine - Last 168 Hours 01/10/23 01/11/23 21:50 05:24 Creatinine 0.87 0.87 Estimated CrCl and GFR - Last 168 Hours 01/10/23 01/11/23 21:50 05:24 Estim Creat Clear Calc 70.8 70.8 Estimated GFR > 60 > 60 Vancomycin Loading Dose: 1750mg x 1 Current Vancomycin Dosing Regimen: 750mg Q12H Vancomycin Monitoring using AUC goal of 400 - 600 range with trough as surrogate marker: 449 mg/L Date and Time for next Vancomycin Level to be drawn: 01/12/23 @1200 Pharmacist Comments on Vancomycin Plan: Vancomycin dosing will take advantage of [employer] as a clinical decision support tool that uses Bayesian modeling to calculate individual patient's pharmacokinetic parameters and forecast the patient's drug concentration time course with the target goal AUC 24 range of 400 - 600 mg/L/hr.
[2023-01-11] MEDS: 0.9 % Sodium Chloride Flush 3 ML SYRINGE IVFLUSH ×2 (07:25→17:09)
--- NOTE | 2023-01-11 08:19 | PC.NURSE ---
PT A/O X 4 NO SOB/MATEO. SPEAKS IN FULL SENTENCES. PT IS HALF ASLEEP BUT IS ANSWERING QUESTIONS. LUNGS - DIMINISHED. HEART SOUNDS - REGULAR. ABD SOFT NON-TENDER bS + X 4 QUAD. R LOWER LEG IS JESSICA. L BKA IS DRESSED, AREA ABOVE L BKA IS APPEARS SWOLLEN AND JESSICA. PT AWARE OF PLAN OF CARE. BREAKFAST AT BEDSIDE.
--- NOTE | 2023-01-11 08:35 | PHA.MEDREC ---
Pharmacy Consult ? Medication Reconciliation Pharmacy has completed the medication reconciliation. I went down to interview patient on 3 separate occasions. Patient is not arousable, patient will open eyes when name is said but very quickly falls back asleep. Used pharmacy/ medical record, patient has recent claim history of Eliquis, therefore I left ASA unconfirmed as I was not able to confirm with patient if she is taking it. Last office visit shows patient was to stop gabapentin and singular. Patient was also recently prescribed oxycodone and morphine. Claims also showed that patient is to stop glipizide-metformin combo and take glipizide by itself.
--- NOTE | 2023-01-11 08:58 | P.CONPL_ITS ---
History of Present Illness History of Present Illness Consult date: 01/11/23 Chief complaint: Dyspnea Narrative: This is an inpatient pulmonary consultation. The patient is a 52-year-old f emale with pertinent history of COPD, congestive heart failure with reduced ejection fraction, xqv-anydzfa-tdxadymth diabetes mellitus with neuropathy, essential hypertension, CAD status post LAD stent, peripheral vascular disease status post left BKA presents to the emergency department for not feeling well.? The patient is very sick. Back in November she did have COVID-19. Now she is presenting with worsening cough malaise. She did have a chest x-ray that was abnormal and was followed up with CT scan of the chest that was personally by me. She does have bilateral pleural effusions that she has had before appear to be relatively stable. In addition to that she appears to have peripheral base cavitary nodules in a bronchovascular distribution suggesting a hematogenous spread. This is consistent with septic emboli. Some of the cavitary areas mainly resulting in the formation of an abscess. This just the pathophysiology. The patient is on broad-spectrum antibiotics including Zosyn and vancomycin which would cover. I did not appreciate any murmur. She denies any IV drug use. Although, she has multiple potential sources of bacteremia including her area BKA. She has significant pain which possibilities phantom pain in addition to adjust pain at the site of her amputation. Review of Systems Review of Systems: Yes Unobtainable due to mental status Constitutional: Constitutional: Reports body ache(s), Reports fatigue, Reports lethargy and Reports malaise Cardiovascular: Cardiovascular: Reports no additional cardiovascular complaints and Denies chest pain Respiratory: Respiratory: Reports chest congestion, Reports cough and Denies hemoptysis Gastrointestinal: Gastrointestinal: Reports no additional gastrointestinal complaints Genitourinary: Genitourinary: Reports no additional female genitourinary complaints Endocrine: Endocrine: Reports fatigue PMFSH Past Medical History Medical History (Updated 01/11/23 @ 09:06 by Gerardo Gracia MD) Asthma Atherosclerotic cardiovascular disease Atrial tachycardia Below-knee amputation of left lower extremity Cellulitis in diabetic foot COPD (chronic obstructive pulmonary disease) Coronary artery disease Diabetes Diabetic foot infection Essential hypertension GERD (gastroesophageal reflux disease) Hyperglycemia due to diabetes mellitus Hypertension Ischemic cardiomyopathy Osteomyelitis 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 PAD (peripheral artery disease) Septic pulmonary embolism Family History Family History Mother Hx of CABG Sister CAD (coronary artery disease) Surgical History Surgical History History of esophagogastroduodenoscopy (EGD) History of toe surgery (09/22/21) Status post below-knee amputation of left lower extremity (09/20/22) Social History Social History Household Members: Significant Other and Children Housing: Apartment Do you presently have visiting nurse or other home services: Yes Unable to assess alcohol history related to: Refusing to respond Alcohol intake: current Alcohol intake frequency: 3 or more drinks per day Alcohol type: hard liquor Patient Tobacco Use Status: Tobacco use Unknown Tobacco use type: Cigarette Cigarette Packs Per Day: 0.5 Cigarettes Per Day: 6 Years Smoked: 43 Smoked in Last 30 Days: Yes e-Cigarette/Vaping Use: Currently Using Second Hand Smoke Exposure: Yes Use of substances other than those prescribed or required for medical reasons: No Substance Use Type: Marijuana Substance Use Frequency: Chronic Longstanding Last Used Substance: Unknown Any prior treatment program specific to substance use: No Advance Directives: Yes Advance Directives on File: Yes Advance Directives Date on File: 09/22/22 service: No Current occupational status: disabled Meds Allergies Allergy/AdvReac Type Severity Reaction Status Date / Time Penicillins [PENICILLINS] Allergy Severe RASH Verified 01/07/23 18:41 amoxicillin [AMOXICILLIN] Allergy Intermediate HIVES Verified 01/07/23 18:41 perflutren [From Definity] AdvReac Back Pain Verified 01/07/23 18:41 Active Medications: Current Medications Acetaminophen (Acetaminophen 325 Mg Tablet) 650 mg PO Q6H PRN PRN Reason: Pain, Mild (Pain Scale 1-3) Dextrose (Dextrose 50 % 25 Gm/50 Ml Syringe) 25 gm IVPUSH Q15M PRN; Protocol PRN Reason: per Hypoglycemia Standing Ord. Glucose (Glucose Gel 15 Gm Gel..Gram.) 15 gm PO Q15M PRN; Protocol PRN Reason: per Hypoglycemia Standing Ord. Piperacillin Sod/Tazobactam (Sod 4.5 gm/ Sodium Chloride) 100 mls @ 200 mls/hr IV Q6H MÓNICA Last Infusion: 01/11/23 07:07 Dose: Infused Vancomycin HCl 750 mg/ Sodium (Chloride) 265 mls @ 265 mls/hr IV Q12H [facility] Insulin Human Lispro (Insulin Lispro 100 Unit/Ml 3 Ml Vial) 0 unit SUBCUT QIDACHS [facility]; Protocol Last Admin: 01/11/23 07:24 Dose: Not Given Melatonin (Melatonin 3 Mg Tablet) 6 mg PO BEDTIME PRN PRN Reason: Insomnia Ondansetron HCl (Ondansetron Hcl 4 Mg/2 Ml Vial) 4 mg IVPUSH Q8H PRN PRN Reason: Nausea and Vomiting Pharmacy Consult (Consult Rx Vancomycin Dosing) 1 each MISCELLANE DAILY PRN PRN Reason: Consult order Pharmacy Consult (Consult Rx Perform Med Rec) 1 each MISCELLANE ONCE PRN PRN Reason: Consult order Sodium Chloride (0.9 % Sodium Chloride Flush 3 Ml Syringe) 3 [facility] Last Admin: 01/11/23 07:25 Dose: 3 ml Home Medications Medication Instructions Recorded Confirmed Last Taken Type clopidogrel 75 mg tablet 75 mg PO DAILY 11/24/22 01/11/23 Unknown History nicotine 21 mg/24 hr daily 1 patch topical DAILY 11/26/22 01/11/23 Unknown History transdermal patch aspirin 81 mg tablet,delayed 81 mg PO DAILY 12/01/22 12/22/22 Unknown History release apixaban 5 mg tablet (Eliquis) 5 mg PO BID 01/11/23 01/11/23 Unknown History fluticasone propionate 115 2 puff inhalation BID 01/11/23 01/11/23 Unknown History mcg-salmeterol 21 mcg/actuation HFA inhaler glipizide 10 mg tablet 10 mg PO DAILY 01/11/23 01/11/23 Unknown History insulin glargine 100 unit/mL (3 20 unit subcut BID 01/11/23 01/11/23 Unknown History mL) subcutaneous pen (Lantus Solostar U-100 Insulin) Physical Exam Vital Signs: Vital Signs: Last Vital Signs Temp 97.9 F 01/11/23 08:00 Pulse 91 01/11/23 08:00 Resp 13 01/11/23 08:00 BP 119/79 01/11/23 08:00 Pulse Ox 98 01/11/23 08:00 O2 Del Method Room Air 01/11/23 08:00 BMI result Body Mass Index 26.6 Const: General: ill appearing, lethargic and tired appearing Nutritional Appearance: underweight Orientation/consciousness: lethargic Limitations: altered mental status and wheelchair HEENT: Head: Yes normocephalic Eyes: Sclerae: sclerae normal Neck: Neck: Yes supple Chest: Chest palpation & inspection: normal inspection of the chest Resp: Effort & Inspection: normal respiratory effort Auscultation: rhonchi and diminished lung sounds Cardio: Heart sounds: S1 normal heart sound present, S2 normal heart sound present and no murmurs GI: Palpation (GI): Soft to palpation Skin: Wounds: amputation site (LBKA) Extrem: General: Yes amputation noted, No clubbing and No cyanosis Results Laboratory Findings 01/11/23 05:24 01/11/23 05:24 Abnormal lab findings: Abnormal Labs 01/10/23 01/10/23 01/11/23 21:50 21:50 05:24 WBC 4.7 L 4.2 L Hgb 9.6 L 9.0 L Hct 34.9 L 32.4 L MCV 67.9 L 67.4 L MCH 18.7 L 18.7 L MCHC 27.5 L 27.8 L RDW 21.9 H 21.7 H Plt Count 96 L 80 L Lymph # (Auto) 1.0 L Absolute Nucleated RBC 0.020 H Nucleated RBC % (auto) 0.4 H Random Glucose 50 L* Iron 16 L % Saturation 4 L 01/11/23 05:24 WBC Hgb Hct MCV MCH MCHC RDW Plt Count Lymph # (Auto) Absolute Nucleated RBC Nucleated RBC % (auto) Random Glucose 55 L* Iron % Saturation Assessment and Plan (1) Multifocal pneumonia: Status: Acute (2) Acute CHF (congestive heart failure): Status: Acute (3) Septic pulmonary embolism: Status: Acute (4) Encephalopathy: Status: Acute Plan The patient is presenting with evidence of septic emboli to the lungs. The patient does not use IV drugs likely the source would be from the history of the poor healing amputation site. She is also recovering from COVID-19 about a month ago that may have also suppress her immune system putting her at risk for increasing infections. Currently on broad-spectrum antibiotics. Recommendations: Continue broad-spectrum antibiotic specially vancomycin. Request MRSA screen Echocardiogram to rule out endocarditis pending. Could also consider bone scan or other status stain to assess for osteomyelitis specially of BKA site. Should have a workup for the encephalopathy. Will request a venous blood gas to make sure she does not have any evidence of hypercarbia. Time Spent With Patient Time: Total time managing care of this patient today ____ minutes. Procedures Date of Service Date of Service: 01/11/23
[2023-01-11] MEDS: carvediloL 3.125 MG TABLET PO ×2 (09:47→20:39)
[2023-01-11] MEDS: Nicotine 21 MG PATCH.TD24 TRANSDERMA (09:47)
[2023-01-11] MEDS: Furosemide 40 MG TABLET PO ×2 (09:48→20:39)
[2023-01-11] MEDS: Apixaban 5 MG TABLET PO ×2 (09:48→20:39)
[2023-01-11] MEDS: lisinopriL 20 MG TABLET PO (09:48)
[2023-01-11] MEDS: Clopidogrel Bisulfate 75 MG TABLET PO (09:48)
[2023-01-11] MEDS: Morphine Sulfate Immed Release 15 MG TABLET PO (09:48)
[2023-01-11] MEDS: Insulin Glargine,Hum.rec.anlog 100 UNIT/ML 10 ML VIAL 15 UNIT SUBCUT (09:49)
[2023-01-11 10:09] LABS: Venous Blood Gas Refer to POC result
[2023-01-11 10:11] LABS: VBG Base Excess 4.1 mmol/L; VBG HCO3 28 mmol/L (22-26); VBG pCO2 40 mmHg; VBG pH 7.45 (7.32-7.43); VBG pO2 85 mmHg
[2023-01-11] MEDS: Albuterol Sulfate (0.083%) 2.5 MG/3 ML VIAL.NEB INHALE (10:12)
--- NOTE | 2023-01-11 10:16 | PM.EVENT ---
Event Note Date of Service: 01/11/23 Event Note: Patient admitted early this morning for management of possible septic emboli versus pulmonary abscess. Evaluated by pulmonology suspecting septic emboli to the lungs likely secondary to poorly healing amputation site though not infected. Continue zosyn and vanco. Echo pending. Did receive lantus 15 units this morning with additional hypoglycemia managed with 1 amp d5, glucose monitored q1h now stable. Hold insulin. Agree with remainder of plan per H&P. Time Spent With Patient Time: Total time managing care of this patient today ____ minutes.
[2023-01-11] MEDS: ondansetron HCL 4 MG/2 ML VIAL IVPUSH (10:29)
[2023-01-11 11:36] LABS: Glucose, Whole Blood 89 mg/dL (60-115)
[2023-01-11 11:36] LABS: Glucose, Whole Blood 104 mg/dL (60-115)
[2023-01-11] MEDS: Dextrose 50 % 25 GM/50 ML SYRINGE IVPUSH (12:33)
--- NOTE | 2023-01-11 12:45 | PC.NURSE ---
POC noted to be 55, patient given IV dextrose and Jennifer Cao notified at 1245 sugar up to 191. Patient able to wake up and given a juice to drink and encouraged to eat. Patient given lunch tray, seem interested in eating at this time, will continue to monitor.
--- NOTE | 2023-01-11 12:49 | MHC.CM.PN ---
Attempted to meet with patient in regards to discharge planning. Patient sleeping. No family present. Will attempt to meet again. Continue to monitor for d/c needs.
[2023-01-11 12:50] LABS: Glucose, Whole Blood 191 mg/dL (60-115)
[2023-01-11 12:50] LABS: Glucose, Whole Blood 55 mg/dL (60-115)
[2023-01-11 13:43] LABS: Glucose, Whole Blood 78 mg/dL (60-115)
--- NOTE | 2023-01-11 13:44 | PC.NURSE ---
Patient noted to be resting with eyes closed at this time, not much of her lunch tray was eaten. Patient sugar 78 at this time, Jennifer Cao notified of sugar, patient given juice and encouraged again to eat her lunch. Patient started to pick at tater tots on her tray. Patient now to go to [facility] per Jennifer Cao.
[2023-01-11] MEDS: vancomycin HCL 750 MG in 0.9 % Sodium Chloride 250 ML 265 MG IV (14:28)
[2023-01-11] MEDS: oxyCODONE HCl Immed Release 5 MG TABLET PO ×2 (14:33→21:56)
[2023-01-11 15:10] LABS: Glucose, Whole Blood 107 mg/dL (60-115)
[2023-01-11 15:32] LABS: Glucose, Whole Blood 182 mg/dL (60-115)
[2023-01-11 16:25] LABS: Glucose, Whole Blood 147 mg/dL (60-115)
[2023-01-11] MEDS: Morphine Sulfate 4 MG/ML CARTRIDGE IVPUSH (17:08)
[2023-01-11 17:34] LABS: Glucose, Whole Blood 95 mg/dL (60-115)
[2023-01-11 17:44] LABS: MRSA Nasal PCR POSITIVE (Negative); SA Nasal PCR POSITIVE (Negative)
[2023-01-11 20:32] LABS: Glucose, Whole Blood 73 mg/dL (60-115)
[2023-01-11] MEDS: Atorvastatin Calcium 80 MG TABLET PO (20:39)
[2023-01-11] MEDS: guaiFENesin 100 MG/5 ML LIQUID PO (21:45)
[2023-01-11 21:55] LABS: Glucose, Whole Blood 111 mg/dL (60-115)
[2023-01-12] MEDS: Piperacillin Sodium/Tazobactam 4.5 GM in 0.9 % Sodium Chloride 100 ML IV ×2 (00:15→06:11)
[2023-01-12] MEDS: Morphine Sulfate 4 MG/ML CARTRIDGE IVPUSH ×2 (00:16→06:11)
[2023-01-12] MEDS: 0.9 % Sodium Chloride Flush 3 ML SYRINGE IVFLUSH (00:21)
[2023-01-12] MEDS: vancomycin HCL 750 MG in 0.9 % Sodium Chloride 250 ML 265 MG IV (03:40)
[2023-01-12 03:57] VITALS: BP 99/58; PULSE 87; RESP 18; TEMP 36.1; O2SAT 93
[2023-01-12 06:37] LABS: MANUAL DIFF FLAG NO
[2023-01-12 06:48] LABS: Basophils Percent Auto 0.4 % (0-2); Eosinophils Absolute Auto 0.1 X10*3/uL (0.0-0.4); Eosinophils Percent Auto 1.5 % (0-4); Hematocrit 32.8 % (37.0-47.0); Hemoglobin 8.9 g/dl (12.0-16.0); Imm Gran Abs Auto 0.02 X10*3/uL (0.00-0.03); Imm Gran Pct Auto 0.4 % (0.0-0.4); Lymphocytes Percent Auto 18.6 % (20-40); Mean Corpuscular HGB Conc 27.1 g/dl (31.0-35.0); Mean Corpuscular Hemoglobin 18.6 pg (27.0-33.0); Mean Corpuscular Volume 68.6 fL (80.0-98.0); Monocytes Absolute Auto 0.5 X10*3/uL (0.1-1.2); Monocytes Percent Auto 9.1 % (2-11); Neutrophils Absolute Auto 3.8 x10*3/uL (2.0-8.3); Red Blood Count 4.78 X10*6/uL (4.20-5.50); Red Cell Distribution Width 21.7 % (11.0-16.0); White Blood Count 5.5 X10*3/uL (4.8-10.8)
[2023-01-12 06:49] LABS: Platelet Count 90 X10*3/uL (160-400)
[2023-01-12 06:55] LABS: Anion Gap 17 (12-20); Blood Urea Nitrogen 10 mg/dL (9-16); Calcium 8.2 mg/dL (8.4-10.2); Carbon Dioxide 27 mmol/L (22-29); Chloride 103 mmol/L (96-108); Creatinine Clr Calc Pharmacy 58.1; Estimated Glomerular Filt Rate 55; Glucose Random 83 mg/dL (60-115); Potassium 3.6 mmol/L (3.3-5.1); Sodium 143 mmol/L (135-145)
[2023-01-12 07:08] LABS: Glucose, Whole Blood 87 mg/dL (60-115)
[2023-01-12 07:26] VITALS: BP 119/66; PULSE 84; RESP 19; TEMP 37; O2SAT 99
--- NOTE | 2023-01-12 09:07 | MHC.CM.PN ---
CM met with Patient at bedside. Patient lives in an apartment with her and she requires a w/c to assist with mobility. Patient has 2 Nurses, one that comes in the AM and one that comes in the PM and a [employer]. Patient has left AMA. PCP is Dr. Danica Vallejo. HCP is on file.
--- NOTE | 2023-01-12 09:31 | P.DS_ITS ---
DS: Providers Provider Date of Service: 01/12/23 Date of admission: 01/11/23 00:36 Date of discharge: 01/12/23 Primary care physician: Danica Vallejo NP Consults: 01/11/23 00:36 Consult to Pulmonology Routine Consulting Provider: [facility] [place] [facility] Reason for consultation: septic emboli vs pulm abscess 01/11/23 22:35 Consult to Wound Care Routine Consulting Provider: Kathy Victor Reason for consultation: diabetic ulcer to right foot , left stump wound Attending physician on discharge: Dillon Hernandez Discharging clinician: Stephanie Flores DS: Diagnosis Discharge Diagnosis (1) Multifocal pneumonia: Status: Acute (2) Septic pulmonary embolism: Status: Acute (3) Encephalopathy: Status: Acute DS: Summary Hospital Course Hospital Course: From H&P on the day of admission This is a 52-year-old female with pertinent history of COPD not on home oxygen, congestive heart failure with reduced ejection fraction, [id number] diabetes mellitus with neuropathy, essential hypertension, CAD status post LAD stent, peripheral vascular disease status post left BKA presents to the emergency department for not feeling well.? Patient is unable to elaborate and only states that she is not feeling well.? She is lethargic and with poor p.o. intake.? Patient states she has generalized body aches with malaise.? She denies fever, chills, shortness of breath, chest discomfort, palpitations, changes in urinary or bowel habits. In the emergency department, imaging with multifocal airspace opacities with central lucencies. Multifocal airspace opacities with central lucencies, concerning for cavitation with septic emboli versus pulmonary abscess.? She was treated with broad-spectrum antibiotics. She was seen in consultation with pulmonology who felt that she this likely represents septic pulmonary emboli possibly from nonhealing stump wound of her left extremity. Blood cultures have remained negative for 24 hours. Unfortunately this morning patient opted to leave the hospital against medical advice. She was awake, alert oriented x3. She was able to tell me that she had a pulmonary infection and although she refused to stay in the hospital she plans to follow-up with her primary care provider for antibiotics and outpatient follow up. She was instructed to return to the hospital with any shortness of breath or high fever. She is instructed to follow-up with pulmonology. Antibiotics were sent to her pharmacy to attempt to minimize harm but are not a substitute for IV antibiotics which was discussed. Worsening infection, sepsis and were discussed, she is aware and understands the risk of leaving the hospital against medical advice but she was not able to be convinced to stay. ceftin and doxy sent to pharmacy - has received cephalosporins in the past including on this admission with no ad verse effect despite listed allergy to PCN Time Spent with Patient Time attestation: Total time managing care of this patient today ____ minutes. Discharge coordination time: Greater than 30 minutes Quality: Safe Use of Opioids Does Pt have an Active Cancer Diagnosis on the Problem List?: No Quality: Stroke Does the patient have a stroke diagnosis?: No Physical Exam Vital Signs: Vital Signs: Last Vital Signs Temp 98.6 F 01/12/23 07:26 Pulse 84 01/12/23 07:26 Resp 19 01/12/23 07:26 BP 119/66 01/12/23 07:26 Pulse Ox 99 01/12/23 07:26 O2 Del Method Room Air 01/12/23 07:26 BMI result Body Mass Index 26.6 Const: General: comfortable, alert and awake Nutritional Appearance: average body habitus Orientation/consciousness: patient oriented x3 Resp: Effort & Inspection: normal respiratory effort and able to speak in complete sentences Neuro: General: patient oriented x3 Extrem: Other: left stump covered in c/d/i dressing no leg edema RLE DS: Data Data Completed and Pending Completed studies during hospitalization [Text1]: Procedures Detachment at Left Lower Leg, High, Open Approach (09/15/22) Drainage of Left Foot Skin, External Approach (11/18/21) Excision of Left Foot Skin, External Approach (09/15/22) Excision of Left Foot Subcutaneous Tissue and Fascia, Open Approach (11/18/21) Insertion of Infusion Device into Superior Vena Cava, Percutaneous Approach (08/21/21) Introduction of Anesthetic Agent into Peripheral Nerves and Plexi, Percutaneous Approach (09/15/22) Transfusion of Nonautologous Red Blood Cells into Peripheral Vein, Percutaneous Approach (06/19/22) Labs on day of discharge: Laboratory Results - last 24 hr 01/11/23 01/11/23 01/11/23 10:04 10:22 11:32 WBC RBC Hgb Hct MCV MCH MCHC RDW Plt Count MPV Immature Gran % (Auto) Neut % (Auto) Lymph % (Auto) Scott % (Auto) Eos % (Auto) Baso % (Auto) Lymph # (Auto) Scott # (Auto) Eos # (Auto) Baso # (Auto) Abs Immat Gran (auto) Absolute Neuts (auto) Absolute Nucleated RBC Nucleated RBC % (auto) VBG pH 7.45 H VBG pCO2 40 VBG pO2 85 VBG HCO3 28 H VBG O2 Saturation 99.0 VBG Base Excess 4.1 Sodium Potassium Chloride Carbon Dioxide Anion Gap BUN Creatinine Estim Creat Clear Calc Estimated GFR POC Glucose 89 104 Random Glucose Calcium Nasal Screen MRSA (PCR) Nasal S. aureus Screen Nasal MRSA/S.aureus Interp 01/11/23 01/11/23 01/11/23 12:30 12:45 13:39 WBC RBC Hgb Hct MCV MCH MCHC RDW Plt Count MPV Immature Gran % (Auto) Neut % (Auto) Lymph % (Auto) Scott % (Auto) Eos % (Auto) Baso % (Auto) Lymph # (Auto) Scott # (Auto) Eos # (Auto) Baso # (Auto) Abs Immat Gran (auto) Absolute Neuts (auto) Absolute Nucleated RBC Nucleated RBC % (auto) VBG pH VBG pCO2 VBG pO2 VBG HCO3 VBG O2 Saturation VBG Base Excess Sodium Potassium Chloride Carbon Dioxide Anion Gap BUN Creatinine Estim Creat Clear Calc Estimated GFR POC Glucose 55 L* 191 H 78 Random Glucose Calcium Nasal Screen MRSA (PCR) Nasal S. aureus Screen Nasal MRSA/S.aureus Interp 01/11/23 01/11/23 01/11/23 14:24 15:29 16:21 WBC RBC Hgb Hct MCV MCH MCHC RDW Plt Count MPV Immature Gran % (Auto) Neut % (Auto) Lymph % (Auto) Scott % (Auto) Eos % (Auto) Baso % (Auto) Lymph # (Auto) Scott # (Auto) Eos # (Auto) Baso # (Auto) Abs Immat Gran (auto) Absolute Neuts (auto) Absolute Nucleated RBC Nucleated RBC % (auto) VBG pH VBG pCO2 VBG pO2 VBG HCO3 VBG O2 Saturation VBG Base Excess Sodium Potassium Chloride Carbon Dioxide Anion Gap BUN Creatinine Estim Creat Clear Calc Estimated GFR POC Glucose 107 182 H 147 H Random Glucose Calcium Nasal Screen MRSA (PCR) Nasal S. aureus Screen Nasal MRSA/S.aureus Interp 01/11/23 01/11/23 01/11/23 16:31 17:29 20:25 WBC RBC Hgb Hct MCV MCH MCHC RDW Plt Count MPV Immature Gran % (Auto) Neut % (Auto) Lymph % (Auto) Scott % (Auto) Eos % (Auto) Baso % (Auto) Lymph # (Auto) Scott # (Auto) Eos # (Auto) Baso # (Auto) Abs Immat Gran (auto) Absolute Neuts (auto) Absolute Nucleated RBC Nucleated RBC % (auto) VBG pH VBG pCO2 VBG pO2 VBG HCO3 VBG O2 Saturation VBG Base Excess Sodium Potassium Chloride Carbon Dioxide Anion Gap BUN Creatinine Estim Creat Clear Calc Estimated GFR POC Glucose 95 73 Random Glucose Calcium Nasal Screen MRSA (PCR) POSITIVE A Nasal S. aureus Screen POSITIVE A Nasal MRSA/S.aureus Interp SEE NOTE 01/11/23 01/12/23 01/12/23 21:48 06:33 06:33 WBC 5.5 RBC 4.78 Hgb 8.9 L Hct 32.8 L MCV 68.6 L MCH 18.6 L MCHC 27.1 L RDW 21.7 H Plt Count 90 L MPV Not Reportable Immature Gran % (Auto) 0.4 Neut % (Auto) 70.0 Lymph % (Auto) 18.6 L Scott % (Auto) 9.1 Eos % (Auto) 1.5 Baso % (Auto) 0.4 Lymph # (Auto) 1.0 L Scott # (Auto) 0.5 Eos # (Auto) 0.1 Baso # (Auto) 0.0 Abs Immat Gran (auto) 0.02 Absolute Neuts (auto) 3.8 Absolute Nucleated RBC 0.000 Nucleated RBC % (auto) 0.0 VBG pH VBG pCO2 VBG pO2 VBG HCO3 VBG O2 Saturation VBG Base Excess Sodium 143 Potassium 3.6 Chloride 103 Carbon Dioxide 27 Anion Gap 17 BUN 10 Creatinine 1.06 Estim Creat Clear Calc 58.1 Estimated GFR 55 POC Glucose 111 Random Glucose 83 Calcium 8.2 L Nasal Screen MRSA (PCR) Nasal S. aureus Screen Nasal MRSA/S.aureus Interp 01/12/23 06:49 WBC RBC Hgb Hct MCV MCH MCHC RDW Plt Count MPV Immature Gran % (Auto) Neut % (Auto) Lymph % (Auto) Scott % (Auto) Eos % (Auto) Baso % (Auto) Lymph # (Auto) Scott # (Auto) Eos # (Auto) Baso # (Auto) Abs Immat Gran (auto) Absolute Neuts (auto) Absolute Nucleated RBC Nucleated RBC % (auto) VBG pH VBG pCO2 VBG pO2 VBG HCO3 VBG O2 Saturation VBG Base Excess Sodium Potassium Chloride Carbon Dioxide Anion Gap BUN Creatinine Estim Creat Clear Calc Estimated GFR POC Glucose 87 Random Glucose Calcium Nasal Screen MRSA (PCR) Nasal S. aureus Screen Nasal MRSA/S.aureus Interp Preliminary micro results at discharge 01/11/23 00:35 Blood Culture - Preliminary Blood - Venous No growth after 24 hours. 01/11/23 00:35 Blood Culture - Preliminary Blood - Venous No growth after 24 hours. Discharge Plan Discharge Patient Disposition: Left Against Medical Advice Discharge Diagnosis: multifocal pneumonia septic pulmonary embolism Referrals: Gerardo Gracia MD [Physician] - 1 Week Danica Vallejo NP [Primary Care Provider] - 1 Week Discharge Medications: New doxycycline hyclate 100 mg tablet 100 mg PO BID 14 Days Qty: 28 0RF cefuroxime axetil 500 mg tablet 500 mg PO BID 14 Days Qty: 28 0RF Continued oxycodone 5 mg tablet 5 mg PO Q8H PRN (Reason: pain) Qty: 15 0RF Rx Instructions: Partial Fill upon patient request. albuterol sulfate 2.5 mg /3 mL (0.083 %) solution for nebulization 1 vial inhalation Q6H PRN (Reason: Wheezing) Qty: 90 0RF lisinopril 20 mg tablet 20 mg PO DAILY Qty: 30 0RF albuterol sulfate [Ventolin HFA] 90 mcg/actuation HFA aerosol inhaler 1 puff INHALATION Q4H PRN (Reason: Wheezing) Qty: 1 0RF Incruse Ellipta 62.5 mcg/actuation blister with device 1 puff PO DAILY Qty: 1 0RF morphine 15 mg tablet 15 mg PO Q4-6H PRN (Reason: pain) Qty: 10 0RF Rx Instructions: The patient may ask for partial fill; Partial Fill upon patient request. glipizide 10 mg tablet 10 mg PO DAILY fluticasone propion-salmeterol 115-21 mcg/actuation HFA aerosol inhaler 2 puff INHALATION BID Eliquis 5 mg tablet 5 mg PO BID atorvastatin 80 mg Tablet 80 mg PO BEDTIME 30 Days Qty: 30 0RF acetaminophen 325 mg Tablet 650 mg PO Q8H PRN (Reason: Pain, Mild (Pain Scale 1-3)) 30 Days Qty: 90 0RF carvedilol 3.125 mg Tablet 3.125 mg PO BID 30 Days Qty: 60 0RF Protocol: Hold for SBP/HR < HOLD for SBP < : 90 HOLD for HR < : 60 furosemide 40 mg tablet 40 mg PO BID Qty: 60 2RF clopidogrel 75 mg tablet 75 mg PO DAILY nicotine 21 mg/24 hr patch 24 hour 1 patch topical DAILY aspirin 81 mg tablet,delayed release (DR/EC) 81 mg PO DAILY Held insulin glargine [Lantus Solostar U-100 Insulin] 100 unit/mL (3 mL) insulin pen 20 unit subcut BID Hold Instructions: monitor blood sugar and call PCP Discharge Orders: Discharge Order (Routine); Ordered 01/12/23 Ordered By: Stephanie Flores Care Plan Goals: resolution of infection Health Concerns: pulmonary abscess multifocal pneumonia low blood sugar Plan of Treatment: you have left against medical advice - you are aware that you have not completed antibiotics or evaluation (including echocardiogram) for your lung infection. you were recommended to stay in the hospital to complete work up. call to schedule appointment with PCP and supervisor pre wave take antibiotics as prescribed to completion - this is not a substitute for staying in the hospital and receiving IV antibiotics. return to the ED with shortness of breath or fever monitor blood sugars at home before meals and at bedtime and follow up with your PCP Assessment: see discharge summary Discharge Date/Time: 01/12/23 08:56
--- NOTE | 2023-01-12 20:23 | HE.PHANOTE ---
Pharmacy received a call from ED that patient had left AMA earlier in the day and was back this evening to get her patient own medications. ED RN came up to pharmacy to obtain patient own medication bag. Had RN sign pink sheet of the triplicate form and handed off to RN. 01/12/23 @1999
== END 2023-01-12 08:56 | disposition left against medical advice (07) | DRG 137 ==
LOC: HO.ED 23:54 → HO.EDOVER 01-11 00:45 → HO.IMC 01-11 15:40
PROVIDERS: Hospitalist; Physician Assistant; Admitting Provider Student in an Organized Health Care Education/Training Program; Emergency Provider Internal Medicine; PCP Nurse Practitioner Family; Visit Provider Physician Assistant Medical
DX: J85.1 Abscess of lung with pneumonia (principal); I26.90 Septic pulmonary embolism without acute cor pulmonale; G93.49 Other encephalopathy; E11.649 Type 2 diabetes mellitus with hypoglycemia without coma; D69.6 Thrombocytopenia, unspecified; T87.89 Other complications of amputation stump; E11.40 Type 2 diabetes mellitus with diabetic neuropathy, unspecified; D50.9 Iron deficiency anemia, unspecified; J44.0 Chronic obstructive pulmonary disease with (acute) lower respiratory infection; E11.51 Type 2 diabetes mellitus with diabetic peripheral angiopathy without gangrene; F17.210 Nicotine dependence, cigarettes, uncomplicated; I11.0 Hypertensive heart disease with heart failure; I50.22 Chronic systolic (congestive) heart failure; I25.10 Atherosclerotic heart disease of native coronary artery without angina pectoris; Y83.5 Amputation of limb(s) as the cause of abnormal reaction of the patient, or of later complication, without mention of misadventure at the time of the procedure; Z20.822 Contact with and (suspected) exposure to COVID-19; Z95.5 Presence of coronary angioplasty implant and graft; Z71.6 Tobacco abuse counseling; Z79.01 Long term (current) use of anticoagulants; Z79.84 Long term (current) use of oral hypoglycemic drugs; Z79.899 Other long term (current) drug therapy
CPT/HCPCS: 36415; 71045; 71250; 80048; 82803; 82947; 83540; 83605; 85025; 87040; 87635; 87640; 87641; 93005; 94640; 99285; J2270; J2405; J2543; J3370

== ENCOUNTER → 2023-01-10 21:28 | Outpatient (BNV) | payer OTHER, SELFPAY | PROVIDERS: Admitting Provider Student in an Organized Health Care Education/Training Program; Emergency Provider Internal Medicine; Visit Provider Internal Medicine | DX: I45.81 Long QT syndrome (principal) | CPT/HCPCS: 93010 ==

== ENCOUNTER → 2023-01-11 00:36 | Outpatient (BNV) | payer OTHER, SELFPAY | PROVIDERS: Admitting Provider Student in an Organized Health Care Education/Training Program; Emergency Provider Internal Medicine; Visit Provider Hospitalist | DX: I26.90 Septic pulmonary embolism without acute cor pulmonale (principal); I50.9 Heart failure, unspecified; J18.9 Pneumonia, unspecified organism; G93.40 Encephalopathy, unspecified | CPT/HCPCS: 99223 ==

== ENCOUNTER → 2023-01-11 00:36 | Outpatient (BNV) | payer OTHER, SELFPAY | PROVIDERS: Admitting Provider Student in an Organized Health Care Education/Training Program; Emergency Provider Internal Medicine; Visit Provider Student in an Organized Health Care Education/Training Program | DX: I26.90 Septic pulmonary embolism without acute cor pulmonale (principal); J18.9 Pneumonia, unspecified organism; G93.40 Encephalopathy, unspecified | CPT/HCPCS: 99223; 99239; 99499 ==

== ENCOUNTER 2023-01-22 05:53 | Emergency (ER) | payer OTHER, SELFPAY ==
--- NOTE | ~2023-01-22 | XR_ITS ---
EXAMINATION: XR CHEST CLINICAL INFORMATION: Cough. Rule out pneumonia. COMPARISON: Previous chest x-ray and chest CT 01/10/2023 TECHNIQUE: Frontal view of the chest was obtained. FINDINGS: The cardiac silhouette is slightly enlarged but stable. Hilar and mediastinal contours are unremarkable. There is question of central bronchial wall thickening. There are more peripheral nodular opacities, largest measuring 3 x 5 cm in the peripheral left lower lung with question cavitary component. This does not appear appreciably changed. No significant pleural effusion. No pneumothorax. No acute bone abnormality. XR/XR chest 1V IMPRESSION: Stable nodular opacities, largest in the left lateral midlung with question cavitation, from previous exams. Infectious, inflammatory and neoplastic processes should be considered.
[2023-01-22 06:02] VITALS: BP 120/70; BP 142/72; PULSE 111; PULSE 70; RESP 18; TEMP 36.9; O2SAT 100; BMI 20.4
--- NOTE | 2023-01-22 06:07 | MHC.EDTECH ---
Patient came in by ambulance, patient was changed into hospital attire vitals were taken and pt was placed on the equipment monitor phototypesetting.
[2023-01-22 06:08] VITALS: BP 142/72; PULSE 109; RESP 24; TEMP 36.9; O2SAT 100
--- NOTE | 2023-01-22 06:58 | ED.GENADULT ---
HPI - General Adult General Chief complaint: General Medical Stated complaint: back pain Time Seen by Provider: 01/22/23 06:57 Source: patient Limitations: no limitations History of Present Illness HPI narrative: 52 yearsPatient is 52 years old with past medical history of COPD, CHF, diabetes, hypertension, neuropathy, CAD status post LAD stent 2 months ago PVD status post left BKA done on 09/21/2022 presents emergency department for evaluation of severe right back and right-sided chest pain. Patient states she has had a cough for approximately 1 month. She states the cough is productive of thick yellow sputum. She denied fever, chills. She has had rhinorrhea. She denied sore throat, nausea, vomiting or diarrhea. She states she was seen at [facility] yesterday and was diagnosed with pneumonia but left against medical advice. She states this morning she is having 10/10 at ripping pain in her left chest and her left back. The pain is worse with breathing and with coughing. The patient did not take any pain medications at home for this pain The patient was hospitalized from 01/11/2023 until 01/12/2023 for multifocal airspace opacities which were concerning for cavitations with septic emboli versus pulmonary abscesses. Pulmonology consult felt that the abscesses may be secondary to her chronic 9 healing left stump. Cultures from that visit were negative after 24 hours. The patient signed out against medical advice and was supposed to be taking oral antibiotics however she states she never picked them up. She was prescribed Ceftin 500 mg q.12 hours times 14 days and doxycycline 100 mg q.12 hours times 14 days. When I asked the patient about this visit, she could not recall why she left against medical advice but states that she does not like being in hospitals and refuses to be hospitalized. Related Data Home Medications Medication Instructions Recorded Confirmed clopidogrel 75 mg tablet 75 mg PO DAILY 11/24/22 01/11/23 nicotine 21 mg/24 hr daily 1 patch topical DAILY 11/26/22 01/11/23 transdermal patch aspirin 81 mg tablet,delayed 81 mg PO DAILY 12/01/22 12/22/22 release apixaban 5 mg tablet (Eliquis) 5 mg PO BID 01/11/23 01/11/23 fluticasone propionate 115 2 puff inhalation BID 01/11/23 01/11/23 mcg-salmeterol 21 mcg/actuation HFA inhaler glipizide 10 mg tablet 10 mg PO DAILY 01/11/23 01/11/23 insulin glargine 100 unit/mL (3 20 unit subcut BID 01/11/23 01/11/23 mL) subcutaneous pen (Lantus Solostar U-100 Insulin) Previous Rx's Medication Instructions Recorded acetaminophen 325 mg tablet 650 mg PO Q8H PRN Pain, Mild (Pain 09/21/22 Scale 1-3) 30 days #90 tabs atorvastatin 80 mg tablet 80 mg PO BEDTIME 30 days #30 tabs 09/21/22 carvedilol 3.125 mg tablet 3.125 mg PO BID 30 days #60 tabs 09/21/22 albuterol sulfate 2.5 mg/3 mL 1 vial inhalation Q6H PRN Wheezing 09/29/22 (0.083 %) solution for nebulization #90 mL albuterol sulfate 90 mcg/actuation 1 puff inhalation Q4H PRN Wheezing 09/29/22 aerosol inhaler (Ventolin HFA) #1 g lisinopril 20 mg tablet 20 mg PO DAILY #30 tabs 09/29/22 umeclidinium 62.5 mcg/actuation 1 puff PO DAILY #1 ea 09/29/22 blister powder for inhalation (Incruse Ellipta) furosemide 40 mg tablet 40 mg PO BID #60 tabs 10/27/22 morphine 15 mg immediate release 15 mg PO Q4-6H PRN pain #10 tabs 01/08/23 tablet oxycodone 5 mg tablet 5 mg PO Q8H PRN pain #15 tabs 01/16/23 cefuroxime axetil 500 mg tablet 500 mg PO Q12H 14 days #28 tabs 01/22/23 doxycycline hyclate 100 mg tablet 100 mg PO Q12H 14 days #28 tabs 01/22/23 morphine 15 mg immediate release 15 mg PO Q4-6H PRN pain #14 tabs 01/22/23 tablet Allergies Allergy/AdvReac Type Severity Reaction Status Date / Time Penicillins [PENICILLINS] Allergy Severe RASH Verified 01/07/23 18:41 amoxicillin [AMOXICILLIN] Allergy Intermediate HIVES Verified 01/07/23 18:41 perflutren [From Definity] AdvReac Back Pain Verified 01/07/23 18:41 Review of Systems Review of Systems: Yes all other systems are reviewed and are negative COUNT INCLUDES THE [facility] Past Medical History Medical History Asthma Atherosclerotic cardiovascular disease Atrial tachycardia Below-knee amputation of left lower extremity Cellulitis in diabetic foot COPD (chronic obstructive pulmonary disease) Coronary artery disease Diabetes Diabetic foot infection Essential hypertension GERD (gastroesophageal reflux disease) Hyperglycemia due to diabetes mellitus Hypertension Ischemic cardiomyopathy Osteomyelitis 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 PAD (peripheral artery disease) Septic pulmonary embolism Surgical History History of esophagogastroduodenoscopy (EGD) History of toe surgery (09/22/21) Status post below-knee amputation of left lower extremity (09/20/22) Family History Family History Mother Hx of CABG Sister CAD (coronary artery disease) Social History Social History Household Members: Spouse Housing: Apartment Do you presently have visiting nurse or other home services: Yes Unable to assess alcohol history related to: Refusing to respond Alcohol intake: never Patient Tobacco Use Status: Current everyday Tobacco user Tobacco use type: Cigarette Cigarette Packs Per Day: 0.5 Cigarettes Per Day: 10 Years Smoked: 43 Smoked in Last 30 Days: Yes e-Cigarette/Vaping Use: Currently Using Second Hand Smoke Exposure: Yes Use of substances other than those prescribed or required for medical reasons: No Substance Use Type: Marijuana Advance Directives: Yes Advance Directives on File: Yes Advance Directives Date on File: 09/22/22 Patient : No service: No Current occupational status: disabled Physical Exam ED Vital Signs: Vital Signs - 24 hr 01/22/23 06:02 01/22/23 06:08 01/22/23 07:17 Temperature 98.5 F 98.5 F 98.6 F Pulse Rate 111 H 109 H 107 H Respiratory Rate 18 24 H 18 Blood Pressure 142/72 H 142/72 H 119/73 Pulse Oximetry 100 100 Oxygen Delivery Method Room Air Room Air Room Air 01/22/23 08:05 Temperature Pulse Rate Respiratory Rate 18 Blood Pressure Pulse Oximetry Oxygen Delivery Method BMI result Body Mass Index 20.4 Vital signs revealed an elevated pulse of 111, respiratory rate was normal in O2 saturation was 100% on room air. She was afebrile. Exam: General: Patient is awake, alert, she is crying, she is rocking back and forth, she is complaining of 10/10 pain Head: Normocephalic, atraumatic EENT: PERRL, Lids normal, sclera normal, conjunctiva normal, nose normal , ears normal, throat without erythema or exudates Neck: Supple, no adenopathy, trachea midline and nontender Lung: breath sounds symmetric, no wheezing, rales or rhonchi Chest: symmetric movement, nontender Heart: regular rate and rhythm, normal S1, S2 no murmurs or rubs Abdomen: soft, non-tender, nondistended, normal bowel sounds Back: no vertebral tenderness, no CVAT, no rashes or lesions on her back where she is having the pain , she does have pain with palpation of her right posterior thoracic paraspinal muscle Extremities: Both legs are erythematous but this is chronic, there is no increased warmth, patient has a left [id number] amputation with a large nonhealing wound which is chronic, does not appear to be infected Skin: no rashes, no lesion, normal color and warmth Neuro: Awake, alert, oriented, normal speech, cranial nerves intact, moves all extremities symmetrically Psych: Anxious, tearful, in distress secondary to pain Medications Administered Discontinued Medications Generic Name Dose Route Start Last Admin Trade Name Freq PRN Reason Stop Dose Admin Ketorolac Tromethamine 60 mg 01/22/23 07:42 01/22/23 08:05 Ketorolac Tromethamine 60 Mg/2 Ml Vial IM 01/22/23 07:43 60 mg ONCE ONE Administration Morphine Sulfate 8 mg 01/22/23 07:42 01/22/23 08:05 Morphine Sulfate 10 Mg/Ml Cartridge IM 01/22/23 07:43 8 mg ONCE ONE Administration Protocol Medical Decision Making Medical Decision Making MDM Narrative: 52-year-old female with past medical history of COPD, CHF, diabetes, hypertension, neuropathy, CAD status post LAD stent 2 months ago PVD status post left BKA done on 09/21/2022 with nonhealing wound who presents emergency department for evaluation of cough x1 month, cough is productive yellow thick sputum. The patient states she was seen at [facility] yesterday diagnosed with pneumonia but left against medical advice. She was hospitalized here from 01/11/2023 until 01/12/2023 and diagnosed with multiple cavitary pulmonary lesions felt to be septic emboli from her nonhealing stump however she left against medical advice at that time and did not complete her course of prescribed antibiotics (Ceftin and doxycycline times 14 days). The patient presents today with 10/10 right posterior thoracic pain which she describes as a ripping pain which is worse with breathing and with coughing. Patient's vital signs were normal. Patient is tearful and crying secondary to pain-she is well-known to the emergency department on often presents with pain and often is tearful, crying and in distress secondary to her pain. I ordered a chest x-ray one view on the patient. We will attempt to get an IV in the patient and give her IV pain medications, if he cannot get an IV then I will give her IM pain medications. 0958: Patient did get relief of her pain with Toradol 60 mg IM and morphine 8 mg IM. Patient's chest x-ray is concerning for cavitary lesions which were initially diagnosed on 01/11/2023 when she was hospitalized here and left against medical advice. I did discuss the CT scan findings with the patient and today's x-ray findings, she states she does not want to be hospital and wants to be treated with oral antibiotics. Patient was prescribe Ceftin 500 mg q.12 hours times 14 days and doxycycline 100 mg q.12 hours times 14 days. She was advised to take Tylenol and for pain not relieved by Tylenol , she was prescribed morphine 15 mg Q 4-6 hours as needed for pain. Differential Diagnosis Differential Diagnoses: The differential diagnosis associated with the presentation includes Differential diagnosis includes was not limited to pneumonia, pleuritic pain, musculoskeletal pain, anxiety, chronic pain syndrome Admission/Observation Consideration of admission/observation: Escalation of care including admission/observation considered Independent Interpretation I performed an independent interpretation of an: Plain X-Ray Interpretation: My independent interpretation the patient's plain x-rays multiple, left mid lung cavitary lesions within infiltrate Radiology Impression Discussion of test interpretation with radiology: I have reviewed the radiologist's reading. Radiologist Impression: XR chest 1V IMPRESSION: Stable nodular opacities, largest in the left lateral midlung with question cavitation, from previous exams. Infectious, inflammatory and neoplastic processes should be considered. Dictated By:Aleja Morgan MD External Record Review External record reviewed: Inpatient record and Other ([place] prescription monitoring program) Discharge Plan Discharge Clinical Impression: Cavitary lesion of lung, Chest pain Patient Disposition: Home, Self-Care Additional Instructions: Your hospitalized here from until 08/2022 for possible infected abscesses/cavitary lesions of your left lung but you left the hospital against medical advice. Your chest x-ray today shows that you still have infected abscesses/cavitary lesions of your left lung and it is very important that you complete the antibiotics that I prescribed and that you follow-up with our acls nurse for re-evaluation. Take Ceftin (cefuroxime) 500 mg, 1 pill every 12 hours for 14 days Take doxycycline 100 mg, 1 pill every 12 hours for 14 Take Tylenol (acetaminophen) 2 pills every 4-6 hours as needed for pain. For pain not relieved by Tylenol take morphine 15 mg pills, 1 pill every 4 hours as needed for pain. This medication will make you sleepy, do not drive or work while taking this medication. Morphine is a narcotic medication and can be addicting. If you are concerned about addiction you can ask the pharmacist for less pills or do not get this prescription filled. Your on Eliquis so do not take nonsteroidal anti-inflammatory (NSAIDs) such as ibuprofen, Motrin, Advil, Aleve, naproxen while your taking Eliquis. Follow-up with your doctor in 2 days. Please return to the emergency department if your symptoms get worse or if you develop any symptoms that are concerning to you. Call the pulmonology group and make a follow-up appointment with Dr. Gerardo Gracia. He is the acls nurse who saw you while your hospitalized. Prescriptions: New cefuroxime axetil 500 mg tablet 500 mg PO Q12H 14 Days Qty: 28 0RF morphine 15 mg tablet 15 mg PO Q4-6H PRN (Reason: pain) Qty: 14 0RF Rx Instructions: Patient may request partial fill; Partial Fill upon patient request. doxycycline hyclate 100 mg tablet 100 mg PO Q12H 14 Days Qty: 28 0RF No Action oxycodone 5 mg tablet 5 mg PO Q8H PRN (Reason: pain) Qty: 15 0RF Rx Instructions: Partial Fill upon patient request. albuterol sulfate 2.5 mg /3 mL (0.083 %) solution for nebulization 1 vial inhalation Q6H PRN (Reason: Wheezing) Qty: 90 0RF lisinopril 20 mg tablet 20 mg PO DAILY Qty: 30 0RF albuterol sulfate [Ventolin HFA] 90 mcg/actuation HFA aerosol inhaler 1 puff INHALATION Q4H PRN (Reason: Wheezing) Qty: 1 0RF Incruse Ellipta 62.5 mcg/actuation blister with device 1 puff PO DAILY Qty: 1 0RF morphine 15 mg tablet 15 mg PO Q4-6H PRN (Reason: pain) Qty: 10 0RF Rx Instructions: The patient may ask for partial fill; Partial Fill upon patient request. glipizide 10 mg tablet 10 mg PO DAILY insulin glargine [Lantus Solostar U-100 Insulin] 100 unit/mL (3 mL) insulin pen 20 unit subcut BID fluticasone propion-salmeterol 115-21 mcg/actuation HFA aerosol inhaler 2 puff INHALATION BID Eliquis 5 mg tablet 5 mg PO BID atorvastatin 80 mg Tablet 80 mg PO BEDTIME 30 Days Qty: 30 0RF acetaminophen 325 mg Tablet 650 mg PO Q8H PRN (Reason: Pain, Mild (Pain Scale 1-3)) 30 Days Qty: 90 0RF carvedilol 3.125 mg Tablet 3.125 mg PO BID 30 Days Qty: 60 0RF Protocol: Hold for SBP/HR < HOLD for SBP < : 90 HOLD for HR < : 60 furosemide 40 mg tablet 40 mg PO BID Qty: 60 2RF clopidogrel 75 mg tablet 75 mg PO DAILY nicotine 21 mg/24 hr patch 24 hour 1 patch topical DAILY aspirin 81 mg tablet,delayed release (DR/EC) 81 mg PO DAILY Referrals: Gerardo Gracia MD [Physician] - 3 days (Left lung cavitary lesion, [facility] 01/12/2023)
[2023-01-22 07:17] VITALS: BP 119/73; PULSE 107; RESP 18; TEMP 37
--- NOTE | 2023-01-22 07:34 | PC.NURSE ---
pt a&ox3, vss, sinus tachy on the personnel monitor. attempted to put IV's in both AC's - both blew. will notify provider. pt tearful and agitated d/t 03/21 back pain. call pires placed within reach.
[2023-01-22 08:05] VITALS: RESP 18
[2023-01-22] MEDS: Ketorolac Tromethamine 60 MG/2 ML VIAL IM (08:05)
[2023-01-22] MEDS: Morphine Sulfate 10 MG/ML CARTRIDGE 8 MG IM (08:05)
--- NOTE | 2023-01-22 08:11 | PC.NURSE ---
medication administered per provider order.
--- NOTE | 2023-01-22 09:05 | PC.NURSE ---
pt's pain level reassessed - pt states that the level decreased to a 5/10. pt verbalizing that pain decreased but she can still feel it. pt resting comfortably/asleep.
[2023-01-22 10:00] VITALS: BP 113/66; PULSE 98; RESP 16; O2SAT 94
[2023-01-22] MEDS: Doxycycline Monohydrate 100 MG CAPSULE PO (10:19)
--- NOTE | 2023-01-22 10:20 | PC.NURSE ---
medication administered per provider order. pt's left stump dressed with cassandra bandage.
== END 2023-01-22 10:55 | disposition home or self-care (01) ==
PROVIDERS: Emergency Provider Emergency Medicine Emergency Medical Services; PCP Internal Medicine Infectious Disease
DX: R07.89 Other chest pain (principal); M54.50 Low back pain, unspecified; R91.1 Solitary pulmonary nodule; I25.10 Atherosclerotic heart disease of native coronary artery without angina pectoris; J44.9 Chronic obstructive pulmonary disease, unspecified; Z79.899 Other long term (current) drug therapy
CPT/HCPCS: 71045; 96372; 99284; J1885; J2270

== ENCOUNTER 2023-01-26 15:19 | Inpatient (IN) | payer OTHER, SELFPAY ==
--- NOTE | ~2023-01-26 | XR_ITS ---
EXAMINATION: XR CHEST 2 VIEW CLINICAL INFORMATION: Chest and back pain COMPARISON: Chest x-ray of 01/22/[address] of 01/10/2023 TECHNIQUE: PA and lateral views of the chest obtained. FINDINGS: There are ill-defined nodular opacities in the left mid and lower and right lower lung zone. No pleural effusions are evident. The cardiomediastinal silhouette is nonenlarged. XR/XR chest 2V IMPRESSION: Bilateral ill-defined nodular opacities, not significantly changed since prior recent chest x-ray and chest CT, though better assessed by the latter.
--- NOTE | ~2023-01-26 | CT_ITS ---
EXAMINATION: CT ANGIOGRAM OF THE CHEST WITH AND WITHOUT CONTRAST (CT PULMONARY ANGIOGRAM FOR PE) CLINICAL INFORMATION: Reason for Exam pain COMPARISON: Chest x-ray 01/26/2023. CT chest 01/10/2023. TECHNIQUE: Prior to contrast administration, noncontrast localization images were obtained. Subsequently, multidetector volumetric imaging was performed from the thoracic inlet to below the diaphragms following the administration of 80 mL Omnipaque 350 intravenous contrast. No contrast reaction reported Sagittal, coronal, and MIP oblique sagittal reformatted images were obtained on the CT workstation, uploaded to PACS, and reviewed. This CT examination was performed using dose optimization techniques as appropriate, variously including the following: *Automated exposure control *Adjustment of mA and/or kV according to patient size (this includes techniques or standardized protocols for targeted exams where dose is matched to indication/reason for exam; i.e. extremities or head) *Use of iterative reconstruction technique Total exam dose-length product 287 mGy-cm FINDINGS: QUALITY OF STUDY/CONTRAST BOLUS: Satisfactory. PULMONARY ARTERIES: No pulmonary emboli. THORACIC AORTA: No aneurysm. LUNG: The lungs are expanded with patchy 5 mm groundglass opacity right lower lobe axial image 24/6, new. 6 mm patchy opacity right lower lobe axial image 26/6, stable. Lobulated large 4 cm x 2 cm opacity left lower lobe adjacent to the major fissure on axial image 30/6 is stable. Subpleural groundglass opacity right lower lobe lateral basal segment and left lower lobe lateral basal segment are all stable. Mild subpleural opacity right middle lobe is also stable. PLEURA: There is moderate right and mild to moderate left pleural effusions. No calcified pleural plaques or thickening seen. MEDIASTINUM: There are lobes are symmetrical and normal. The central trachea and the bronchi widely patent. Heart size and the great vessels are normal caliber. No abnormal size mediastinal or hilar lymph nodes noted. No evidence of septal bowing or right heart strain. CORONARY ARTERY CALCIFICATION: There is moderate coronary artery calcifications CHEST WALL/AXILLA: There are bilateral small exophytic lymph nodes. The chest wall is unremarkable. There are scattered calcifications in bilateral breasts parenchyma. OSSEOUS STRUCTURES: No acute or suspicious osseous abnormality. UPPER ABDOMEN: Visualized liver, spleen, pancreas and bilateral adrenal glands are unremarkable. No reflux of contrast into the hepatic veins to suggest elevated right heart pressures. CT/CT angio chest PE protocol IMPRESSION: 1. No evidence of PE. 2. No evidence aortic dissection or aneurysm. 3. Moderate right and mild to moderate left pleural effusions are stable. 4. Bilateral lower lobe and right middle lobe subpleural groundglass opacities are stable. There is a new 5 mm groundglass opacity right lower lobes. VTE: negative
[2023-01-26 15:31] VITALS: BP 130/82; BP 148/72; PULSE 97; PULSE 99; RESP 18; TEMP 36.6; O2SAT 100; O2SAT 99; BMI 27.6
--- NOTE | 2023-01-26 15:34 | ECG_ITS ---
Test Reason : CHEST PAIN Blood Pressure : / mmHG Vent. Rate : 094 BPM Atrial Rate : 094 BPM P-R Int : 150 ms QRS Dur : 086 ms QT Int : 386 ms P-R-T Axes : 065 012 101 degrees QTc Int : 482 ms Normal sinus rhythm Low voltage QRS Cannot rule out Anterior infarct , age undetermined Abnormal ECG When compared with ECG of 10-JAN-2023 21:44, Questionable change in QRS axis Nonspecific T wave abnormality no longer evident in Inferior leads Referred By: Ashley Gill Electronically Signed By:JARRED BARRETO
[2023-01-26 16:26] LABS: Basophils Absolute Auto 0.1 X10*3/uL (0.0-0.2); Basophils Percent Auto 0.9 % (0-2); Imm Gran Abs Auto 0.03 X10*3/uL (0.00-0.03); Imm Gran Pct Auto 0.5 % (0.0-0.4); MANUAL DIFF FLAG SCAN; Mean Corpuscular HGB Conc 28.1 g/dl (31.0-35.0); Mean Corpuscular Volume 67.6 fL (80.0-98.0); SCAN SMEAR FLAG 1
[2023-01-26 16:28] LABS: Eosinophils Percent Auto 0.5 % (0-4); Hematocrit 33.4 % (37.0-47.0); Hemoglobin 9.4 g/dl (12.0-16.0); Lymphocytes Percent Auto 17.1 % (20-40); Monocytes Absolute Auto 0.5 X10*3/uL (0.1-1.2); Monocytes Percent Auto 8.4 % (2-11); Neutrophils Absolute Auto 4.2 x10*3/uL (2.0-8.3); Neutrophils Percent Auto 72.6 % (45-73); Platelet Count 257 X10*3/uL (160-400); Red Blood Count 4.94 X10*6/uL (4.20-5.50); Red Cell Distribution Width 23.2 % (11.0-16.0); White Blood Count 5.7 X10*3/uL (4.8-10.8)
[2023-01-26 16:32] LABS: NRBC Pct Auto 1.7 /100WBC (0.0-0.2); PLT ABN DIST 1
[2023-01-26 16:43] LABS: INTERNATIONAL NORM RATIO 1.7 (0.9-1.1); Prothrombin Time 21.1 SEC (11.1-13.3)
[2023-01-26 16:46] LABS: Partial Thromboplastin Time 29.9 SEC (26.0-36.4)
[2023-01-26 16:56] LABS: SLIDE REVIEW VERIFIED
[2023-01-26 17:10] LABS: COVID-19 Test Negative (Negative); IDNOW Serial# 08D9AD1C
[2023-01-26 17:18] LABS: Alanine Aminotransferase 18 U/L (0-31); Albumin Level 3.5 g/dL (3.5-5.0); Alkaline Phosphatase 93 U/L (39-117); Anion Gap 14 (12-20); Aspartate Amino Transferase 18 U/L (5-31); Bilirubin Total 1.7 mg/dL (0.0-1.0); Blood Urea Nitrogen 26 mg/dL (9-16); Calcium 9.5 mg/dL (8.4-10.2); Carbon Dioxide 27 mmol/L (22-29); Chloride 103 mmol/L (96-108); Estimated Glomerular Filt Rate 50; Glucose Random 97 mg/dL (60-115); Magnesium 1.9 mg/dL (1.6-2.6); Potassium 4.5 mmol/L (3.3-5.1); Sodium 139 mmol/L (135-145); Total Protein 6.7 g/dL (6.5-8.0)
[2023-01-26 17:25] LABS: Appearance Urine Clear; Color Urine Yellow; Glucose Urine UA Negative (Negative); Leukocyte Esterase Urine Negative (Negative); Nitrite Urine Negative (Negative); Specific Gravity - Urine 1.015 (1.005-1.025); UMIC TRIGGER UACC YES; Urine Blood Negative (Negative); Urine Ketones Negative (Negative); Urine Protein 30 (1+) mg/dL (Neg-Trace)
[2023-01-26 17:25] LABS: Troponin-I High Sensitivity 15.3 ng/L (<3.5-17.0)
[2023-01-26 17:30] LABS: Bacteria Urine None Seen (None Seen); RBC Urine 0-2 /HPF (0-2); WBC Urine 0-5 /HPF (0-5)
--- NOTE | 2023-01-26 17:46 | ED_ITS ---
HPI - Chest Pain General Chief Complaint: Chest Pain Stated Complaint: L SIDED CHEST AND BACK PAIN VOMITING Time Seen by Provider: 01/26/23 17:06 Source: patient, RN notes reviewed and old records reviewed Mode of arrival: EMS Limitations: no limitations History of Present Illness HPI narrative: 52-year-old female with very complex medical history including COPD, CHF, diabetes, CAD, hypertension, neuropathy, left BKA presents for evaluation of chest pain and cough. Patient is very well-known to this department. She was admitted here on 01/10/2023 for acute CHF with multifocal pneumonia and concern for pulmonary abscesses She ultimately left against medical advice. She returned on 01/22/2023 complaining of chest pain and continued cough The patient declined admission at that time. She was discharged with cefuroxime and doxycycline which she reports that she has been taking as directed. Patient complains of severe, left-sided tenderness 10 chest pain that radiates through to her back. She continues to endorse cough No fevers or chills Related Data Home Medications Medication Instructions Recorded Confirmed clopidogrel 75 mg tablet 75 mg PO DAILY 11/24/22 01/26/23 nicotine 21 mg/24 hr daily 1 patch topical DAILY 11/26/22 01/26/23 transdermal patch apixaban 5 mg tablet (Eliquis) 5 mg PO BID 01/11/23 01/26/23 fluticasone propionate 115 2 puff inhalation BID 01/11/23 01/26/23 mcg-salmeterol 21 mcg/actuation HFA inhaler glipizide 10 mg tablet 10 mg PO DAILY 01/11/23 01/26/23 insulin glargine 100 unit/mL (3 20 unit subcut BID 01/11/23 01/26/23 mL) subcutaneous pen (Lantus Solostar U-100 Insulin) Previous Rx's Medication Instructions Recorded atorvastatin 80 mg tablet 80 mg PO BEDTIME 30 days #30 tabs 09/21/22 carvedilol 3.125 mg tablet 3.125 mg PO BID 30 days #60 tabs 09/21/22 albuterol sulfate 2.5 mg/3 mL 1 vial inhalation Q6H PRN Wheezing 09/29/22 (0.083 %) solution for nebulization #90 mL albuterol sulfate 90 mcg/actuation 1 puff inhalation Q4H PRN Wheezing 09/29/22 aerosol inhaler (Ventolin HFA) #1 g umeclidinium 62.5 mcg/actuation 1 puff PO DAILY #1 ea 09/29/22 blister powder for inhalation (Incruse Ellipta) furosemide 40 mg tablet 40 mg PO BID #60 tabs 10/27/22 cefuroxime axetil 500 mg tablet 500 mg PO Q12H 14 days #28 tabs 01/22/23 doxycycline hyclate 100 mg tablet 100 mg PO Q12H 14 days #28 tabs 01/22/23 morphine 15 mg immediate release 15 mg PO Q4-6H PRN pain #14 tabs 01/22/23 tablet Allergies Allergy/AdvReac Type Severity Reaction Status Date / Time Penicillins [PENICILLINS] Allergy Severe RASH Verified 01/07/23 18:41 amoxicillin [AMOXICILLIN] Allergy Intermediate HIVES Verified 01/07/23 18:41 perflutren [From Definity] AdvReac Back Pain Verified 01/07/23 18:41 Review of Systems Constitutional: Constitutional: Denies chills and Denies fever(s) Cardiovascular: Cardiovascular: Reports chest pain and Reports dyspnea Respiratory: Respiratory: Reports cough, Reports pain with cough and Reports dyspnea Gastrointestinal: Gastrointestinal: Denies abdominal pain, Reports nausea and Reports vomiting Musculoskeletal: Musculoskeletal: Reports back pain Integumentary/Breasts: Skin/Breast: Denies rash PMFSH Past Medical History Medical History Asthma Atherosclerotic cardiovascular disease Atrial tachycardia Below-knee amputation of left lower extremity Cellulitis in diabetic foot COPD (chronic obstructive pulmonary disease) Coronary artery disease Diabetes Diabetic foot infection Essential hypertension GERD (gastroesophageal reflux disease) Hyperglycemia due to diabetes mellitus Hypertension Ischemic cardiomyopathy Osteomyelitis 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 PAD (peripheral artery disease) Septic pulmonary embolism Surgical History History of esophagogastroduodenoscopy (EGD) History of toe surgery (09/22/21) Status post below-knee amputation of left lower extremity (09/20/22) Family History Family History Mother Hx of CABG Sister CAD (coronary artery disease) Social History Social History Household Members: Spouse Housing: Apartment Do you presently have visiting nurse or other home services: Yes Unable to assess alcohol history related to: Refusing to respond Alcohol intake: never Patient Tobacco Use Status: Current everyday Tobacco user Tobacco use type: Cigarette Cigarette Packs Per Day: 0.5 Cigarettes Per Day: 10 Years Smoked: 43 Smoked in Last 30 Days: Yes e-Cigarette/Vaping Use: Currently Using Second Hand Smoke Exposure: Yes Use of substances other than those prescribed or required for medical reasons: No Substance Use Type: Marijuana Advance Directives: Yes Advance Directives on File: Yes Advance Directives Date on File: 09/22/22 service: No Current occupational status: disabled Physical Exam Vital Signs: Vital Signs: Last Vital Signs Temp 98.0 F 01/26/23 18:00 Pulse 95 01/26/23 18:00 Resp 18 01/26/23 18:00 BP 130/84 01/26/23 18:00 Pulse Ox 96 01/26/23 18:00 O2 Del Method Room Air 01/26/23 18:00 BMI result Body Mass Index 27.6 Const: General: no acute distress, alert and awake Nutritional Appearance: well nourished Orientation/consciousness: patient oriented x3 HEENT: Head: Yes normocephalic and Yes atraumatic Eyes: Eyelids: Yes eyelids normal Conjunctivae: conjunctivae normal Sclerae: sclerae normal Corneas: corneas normal Pupils: Equal, round and reactive pupils present EOM: EOMs intact bilaterally Neck: Neck: Yes full ROM Resp: Effort & Inspection: normal respiratory effort, able to speak in complete sentences, no audible wheezes and not labored Auscultation: clear to auscultation bilaterally Cardio: Rate: regular rate Rhythm: regular rhythm GI: Inspection: No distended Palpation (GI): Soft to palpation, not firm, nontender, no guarding and not rigid Skin: General skin exam: no rashes or lesions noted and elasticity normal Neuro: General: patient oriented x3 Cranial nerves: Yes Equal, round and reactive pupils present and Yes Bilaterally intact EOM present Cognition (Neuro): normal cognition Extrem: Other: Left BKA Course Reevaluation(s) Reevaluation #1: Discussed with the hospitalist, Dr. Montano who recommends repeat CT imaging to assess for interval change. This was ordered Time: 19:51 Medications Administered Generic Name Dose Route Start Last Admin Trade Name Freq PRN Reason Stop Dose Admin Vancomycin HCl 1,000 mg/ 535 mls @ 267.5 mls/hr 01/26/23 18:00 01/26/23 19:16 Vancomycin HCl 750 mg/ Sodium IV 01/26/23 19:59 267.5 mls/hr Chloride ONCE ONE Administration Discontinued Medications Generic Name Dose Route Start Last Admin Trade Name Freq PRN Reason Stop Dose Admin Sodium Chloride 1,000 mls @ 999 mls/hr 01/26/23 17:30 01/26/23 18:13 Ns IV 01/26/23 18:30 999 mls/hr .Q1H1M MÓNICA Administration Piperacillin Sod/Tazobactam 100 mls @ 200 mls/hr 01/26/23 17:31 01/26/23 18:55 Sod 4.5 gm/ Sodium Chloride IV 01/26/23 18:00 Infused ONCE ONE Infusion Vancomycin HCl 1,000 mg/ 270 mls @ 270 mls/hr 01/26/23 17:33 01/26/23 19:19 Sodium Chloride IV 01/26/23 18:32 Not Given ONCE ONE Morphine Sulfate 4 mg 01/26/23 17:35 01/26/23 17:58 Morphine Sulfate 4 Mg/Ml Cartridge IVPUSH 01/26/23 17:36 4 mg ONCE ONE Administration Protocol Ondansetron HCl 4 mg 01/26/23 17:26 01/26/23 18:09 Ondansetron Hcl 4 Mg/2 Ml Vial IVPUSH 01/26/23 17:27 Not Given ONCE ONE Medical Decision Making Medical Decision Making [facility] Narrative: 52-year-old female with complex medical history presents for evaluation of continued chest pain. She has been compliant with her antibiotics as an outpatient per her report. Her chest x-ray looks unchanged with likely infectious etiology. Plan to admit for IV antibiotics. The patient is not septic at this time. The patient is adamant that she is agreeable to stay Differential Diagnosis Differential Diagnoses: The differential diagnosis associated with the presentation includes Pneumonia Multifocal pneumonia Cavitary lesion Pulmonary abscesses Septic emboli Admission/Observation Consideration of admission/observation: Escalation of care including admission/observation considered Failed outpatient antibiotics, cavitary pulmonary lesions Consult Healthcare Provider Management of the patient was discussed with: Hospitalist Lab Data [facility] Lab Attestation statement: I reviewed the patient's lab results. No leukocytosis with a white count of 5.7. Patient has a baseline anemia with the hemoglobin at 9.4 hematocrit 33.4 consistent with her baseline. No significant electrolyte abnormalities. 01/26/23 16:03 01/26/23 16:03 Labs: Lab Results 01/26/23 01/26/23 01/26/23 Range/Units 16:03 16:03 16:03 WBC 5.7 (4.8-10.8) X10*3/uL RBC 4.94 (4.20-5.50) X10*6/uL Hgb 9.4 L (12.0-16.0) g/dl Hct 33.4 L (37.0-47.0) % MCV 67.6 L (80.0-98.0) fL MCH 19.0 L (27.0-33.0) pg MCHC 28.1 L (31.0-35.0) g/dl RDW 23.2 H (11.0-16.0) % Plt Count 257 D (160-400) X10*3/uL MPV TNP Immature Gran % (Auto) 0.5 H (0.0-0.4) % Neut % (Auto) 72.6 (45-73) % Lymph % (Auto) 17.1 L (20-40) % [place] % (Auto) 8.4 (2-11) % Eos % (Auto) 0.5 (0-4) % Baso % (Auto) 0.9 (0-2) % Lymph # (Auto) 1.0 L (1.2-4.9) X10*3/uL [place] # (Auto) 0.5 (0.1-1.2) X10*3/uL Eos # (Auto) 0.0 (0.0-0.4) X10*3/uL Baso # (Auto) 0.1 (0.0-0.2) X10*3/uL Abs Immat Gran (auto) 0.03 (0.00-0.03) X10*3/uL Absolute Neuts (auto) 4.2 (2.0-8.3) x10*3/uL Absolute Nucleated RBC 0.100 H (0.0-0.012) X10*3/uL Nucleated RBC % (auto) 1.7 H (0.0-0.2) /100WBC Smear Tech's Comments VERIFIED PT 21.1 H D (11.1-13.3) SEC INR 1.7 H (0.9-1.1) APTT 29.9 (26.0-36.4) SEC Sodium 139 (135-145) mmol/L Potassium 4.5 D (3.3-5.1) mmol/L Chloride 103 (96-108) mmol/L Carbon Dioxide 27 (22-29) mmol/L Anion Gap 14 (12-20) BUN 26 H (9-16) mg/dL Creatinine 1.14 (0.5-1.4) mg/dL Estim Creat Clear Calc 55.0 Estimated GFR 50 Random Glucose 97 (60-115) mg/dL Lactic Acid (0.5-2.0) mmol/L Calcium 9.5 D (8.4-10.2) mg/dL Magnesium 1.9 (1.6-2.6) mg/dL Total Bilirubin 1.7 H (0.0-1.0) mg/dL AST 18 (5-31) U/L ALT 18 (0-31) U/L Alkaline Phosphatase 93 (39-117) U/L Troponin I High Sens (<3.5-17.0) ng/L Total Protein 6.7 (6.5-8.0) g/dL Albumin 3.5 (3.5-5.0) g/dL Urine Color Urine Appearance Urine pH (5.0-9.0) Ur Specific Arnold (1.005-1.025) Urine Protein (Neg-Trace) mg/dL Urine Glucose (UA) (Negative) mg/dL Urine Ketones (Negative) mg/dL Urine Blood (Negative) Urine Nitrite (Negative) Ur Leukocyte Esterase (Negative) Urine RBC (0-2) /HPF Urine WBC (0-5) /HPF Ur Squamous Epith Cells (0-2) /HPF Urine Bacteria (None Seen) Hyaline Casts (0-2) /LPF COVID-19 (KATHLEEN) (Negative) COVID-19 Clin Com 01/26/23 01/26/23 01/26/23 Range/Units 16:03 16:03 17:16 WBC (4.8-10.8) X10*3/uL RBC (4.20-5.50) X10*6/uL Hgb (12.0-16.0) g/dl Hct (37.0-47.0) % MCV (80.0-98.0) fL MCH (27.0-33.0) pg MCHC (31.0-35.0) g/dl RDW (11.0-16.0) % Plt Count (160-400) X10*3/uL MPV Immature Gran % (Auto) (0.0-0.4) % Neut % (Auto) (45-73) % Lymph % (Auto) (20-40) % [place] % (Auto) (2-11) % Eos % (Auto) (0-4) % Baso % (Auto) (0-2) % Lymph # (Auto) (1.2-4.9) X10*3/uL [place] # (Auto) (0.1-1.2) X10*3/uL Eos # (Auto) (0.0-0.4) X10*3/uL Baso # (Auto) (0.0-0.2) X10*3/uL Abs Immat Gran (auto) (0.00-0.03) X10*3/uL Absolute Neuts (auto) (2.0-8.3) x10*3/uL Absolute Nucleated RBC (0.0-0.012) X10*3/uL Nucleated RBC % (auto) (0.0-0.2) /100WBC Smear Tech's Comments PT (11.1-13.3) SEC INR (0.9-1.1) APTT (26.0-36.4) SEC Sodium (135-145) mmol/L Potassium (3.3-5.1) mmol/L Chloride (96-108) mmol/L Carbon Dioxide (22-29) mmol/L Anion Gap (12-20) BUN (9-16) mg/dL Creatinine (0.5-1.4) mg/dL Estim Creat Clear Calc Estimated GFR Random Glucose (60-115) mg/dL Lactic Acid (0.5-2.0) mmol/L Calcium (8.4-10.2) mg/dL Magnesium (1.6-2.6) mg/dL Total Bilirubin (0.0-1.0) mg/dL AST (5-31) U/L ALT (0-31) U/L Alkaline Phosphatase (39-117) U/L Troponin I High Sens 15.3 D (<3.5-17.0) ng/L Total Protein (6.5-8.0) g/dL Albumin (3.5-5.0) g/dL Urine Color Yellow Urine Appearance Clear Urine pH 6.0 (5.0-9.0) Ur Specific Arnold 1.015 (1.005-1.025) Urine Protein 30 (1+) H (Neg-Trace) mg/dL Urine Glucose (UA) Negative (Negative) mg/dL Urine Ketones Negative (Negative) mg/dL Urine Blood Negative (Negative) Urine Nitrite Negative (Negative) Ur Leukocyte Esterase Negative (Negative) Urine RBC 0-2 (0-2) /HPF Urine WBC 0-5 (0-5) /HPF Ur Squamous Epith Cells 3-5 (0-2) /HPF Urine Bacteria None Seen (None Seen) Hyaline Casts 3-5 (0-2) /LPF COVID-19 (KATHLEEN) Negative (Negative) COVID-19 Clin Com See Note 01/26/23 01/26/23 Range/Units 17:55 19:13 WBC (4.8-10.8) X10*3/uL RBC (4.20-5.50) X10*6/uL Hgb (12.0-16.0) g/dl Hct (37.0-47.0) % MCV (80.0-98.0) fL MCH (27.0-33.0) pg MCHC (31.0-35.0) g/dl RDW (11.0-16.0) % Plt Count (160-400) X10*3/uL MPV Immature Gran % (Auto) (0.0-0.4) % Neut % (Auto) (45-73) % Lymph % (Auto) (20-40) % [place] % (Auto) (2-11) % Eos % (Auto) (0-4) % Baso % (Auto) (0-2) % Lymph # (Auto) (1.2-4.9) X10*3/uL [place] # (Auto) (0.1-1.2) X10*3/uL Eos # (Auto) (0.0-0.4) X10*3/uL Baso # (Auto) (0.0-0.2) X10*3/uL Abs Immat Gran (auto) (0.00-0.03) X10*3/uL Absolute Neuts (auto) (2.0-8.3) x10*3/uL Absolute Nucleated RBC (0.0-0.012) X10*3/uL Nucleated RBC % (auto) (0.0-0.2) /100WBC Smear Tech's Comments PT (11.1-13.3) SEC INR (0.9-1.1) APTT (26.0-36.4) SEC Sodium (135-145) mmol/L Potassium (3.3-5.1) mmol/L Chloride (96-108) mmol/L Carbon Dioxide (22-29) mmol/L Anion Gap (12-20) BUN (9-16) mg/dL Creatinine (0.5-1.4) mg/dL Estim Creat Clear Calc Estimated GFR Random Glucose (60-115) mg/dL Lactic Acid 1.5 (0.5-2.0) mmol/L Calcium (8.4-10.2) mg/dL Magnesium (1.6-2.6) mg/dL Total Bilirubin (0.0-1.0) mg/dL AST (5-31) U/L ALT (0-31) U/L Alkaline Phosphatase (39-117) U/L Troponin I High Sens (<3.5-17.0) ng/L Total Protein (6.5-8.0) g/dL Albumin (3.5-5.0) g/dL Urine Color Urine Appearance Urine pH (5.0-9.0) Ur Specific Arnold (1.005-1.025) Urine Protein (Neg-Trace) mg/dL Urine Glucose (UA) (Negative) mg/dL Urine Ketones (Negative) mg/dL Urine Blood (Negative) Urine Nitrite (Negative) Ur Leukocyte Esterase (Negative) Urine RBC (0-2) /HPF Urine WBC (0-5) /HPF Ur Squamous Epith Cells (0-2) /HPF Urine Bacteria (None Seen) Hyaline Casts (0-2) /LPF COVID-19 (KATHLEEN) Negative (Negative) COVID-19 Clin Com See Note Independent Interpretation I performed an independent interpretation of an: Plain X-Ray (Left midlung infiltrate) Radiology Impression Discussion of test interpretation with radiology: I have reviewed the radio logist's reading. (Bilateral ill-defined nodular obesity is not significantly changed since prior chest x-ray and chest CT) Discharge Plan Discharge Clinical Impression: Chest pain, Abscess of left lung with pneumonia Patient Disposition: Admitted As Inpatient
[2023-01-26 17:58] VITALS: RESP 12
[2023-01-26] MEDS: Morphine Sulfate 4 MG/ML CARTRIDGE IVPUSH (17:58)
[2023-01-26 18:00] VITALS: BP 130/84; PULSE 95; RESP 18; TEMP 36.7; O2SAT 96
[2023-01-26] MEDS: Piperacillin Sodium/Tazobactam 4.5 GM in 0.9 % Sodium Chloride 100 ML IV (18:08)
[2023-01-26] MEDS: 0.9 % Sodium Chloride 1,000 ML 999 ML IV (18:13)
[2023-01-26 18:22] LABS: Lactic Acid 1.5 mmol/L (0.5-2.0)
--- NOTE | 2023-01-26 18:45 | PHA.MEDREC ---
Pharmacy Consult ? Medication Reconciliation Pharmacy has completed the medication reconciliation. Patient had list of medications from [facility] that states good through 11/21/22-01/19/23. This did not match pharmacy history and I called to confirm. I utilize med records, provider's notes and pharmacy information to complete med rec. Gabapentin and Montelukast were dc'd on 12/22/[address] Hung Starting 10/10/22 - clopidgrel prescription states stop aspirin and brillinta - Brillianta has not been filled since, clopigrel was been filled regularly Inhaler that are being filled are Incruse, Ventolin and Fluticasone/Salmeterol and not Anoro. Lisinopril was last filled 09/29/22 Patient reported that she is on a blood thinner (Eliquis filled 01/15/23), morphine and use nicotine patches. Kandice Bruno, ShantanuD
[2023-01-26] MEDS: vancomycin HCL 1,000 MG, vancomycin HCL 750 MG in 0.9 % Sodium Chloride 500 ML 267.5 MG IV (19:16)
--- NOTE | 2023-01-26 19:17 | PC.NURSE ---
Assumed care of pt. Pt lying on stretcher, no acute distress at this time. Medicatoins administered as ordered, VSS at this time. Continuing POC.
[2023-01-26 19:40] LABS: COVID-19 Test Negative (Negative); IDNOW Serial# 55D5AD1C
[2023-01-26 22:00] VITALS: BP 138/88; PULSE 87; RESP 18; O2SAT 95
[2023-01-26] MEDS: iohexoL 350 MG/ML 100 ML INFUS..BTL IV (22:32)
--- NOTE | 2023-01-27 00:10 | P.HPHOSP_ITS ---
History of Present Illness Date of Service: 01/27/23 Chief Complaint: Cough This is a 52-year-old female with pertinent history of COPD not on home oxygen, congestive heart failure with reduced ejection fraction, gon-hhuniqo-jxmwtrkzv diabetes mellitus with neuropathy, CAD status post LAD stent, peripheral vascula r disease status post left BKA, essential hypertension, paroxysmal atrial fibrillation on anticoagulation who presents to the emergency department for evaluation of cough, back pain and not feeling well. Patient was admitted on 01/11 with multifocal airspace opacities concerning for septic emboli. Pulmonology evaluated the patient and advised to obtain an echo and continue IV antibiotics. Patient left AMA on 01/12. Patient returned to the ER on 01/22 with similar complaints but did not want to be admitted to the hospital. She was prescribed cefuroxime and doxycycline which she states that she had apparently has been taking. She is unable to provide names of the antibiotic though. Patient is unable to elaborate but states she is not feeling well and has generalized weakness with malaise. Also has been having cough with chills. She states that she is willing to stay through her hospital admission course and will not leave AMA. Does endorse multiple episodes of nonbloody emesis. In the emergency department, imaging with multiple ground-glass opacities and new 5 mm right lower lobe ground-glass opacity. Review of Systems Constitutional: Constitutional: Reports chills, Reports fatigue, Reports lethargy, Reports malaise and Reports weakness Cardiovascular: Cardiovascular: Reports no additional cardiovascular complai nts Respiratory: Respiratory: Reports no additional respiratory complaints Gastrointestinal: Gastrointestinal: Reports nausea and Reports vomiting Genitourinary: Genitourinary: Reports no additional female genitourinary complaints Neurologic: Reports weakness Endocrine: Endocrine: Reports fatigue FOR[facility]LY [facility] Medical History Asthma Atherosclerotic cardiovascular disease Atrial tachycardia Below-knee amputation of left lower extremity Cellulitis in diabetic foot COPD (chronic obstructive pulmonary disease) Coronary artery disease Diabetes Diabetic foot infection Essential hypertension GERD (gastroesophageal reflux disease) Hyperglycemia due to diabetes mellitus Hypertension Ischemic cardiomyopathy Osteomyelitis 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 PAD (peripheral artery disease) Septic pulmonary embolism Family History Mother Hx of CABG Sister CAD (coronary artery disease) Surgical History History of esophagogastroduodenoscopy (EGD) History of toe surgery (09/22/21) Status post below-knee amputation of left lower extremity (09/20/22) Social History Household Members: Spouse Housing: Apartment Do you presently have visiting nurse or other home services: Yes Unable to assess alcohol history related to: Refusing to respond Alcohol intake: never Patient Tobacco Use Status: Current everyday Tobacco user Tobacco use type: Cigarette Cigarette Packs Per Day: 0.5 Cigarettes Per Day: 10 Years Smoked: 43 Smoked in Last 30 Days: Yes e-Cigarette/Vaping Use: Currently Using Second Hand Smoke Exposure: Yes Use of substances other than those prescribed or required for medical reasons: No Substance Use Type: Marijuana Advance Directives: Yes Advance Directives on File: Yes Advance Directives Date on File: 09/22/22 service: No Current occupational status: disabled Meds Allergies Allergy/AdvReac Type Severity Reaction Status Date / Time Penicillins [PENICILLINS] Allergy Severe RASH Verified 01/07/23 18:41 amoxicillin [AMOXICILLIN] Allergy Intermediate HIVES Verified 01/07/23 18:41 perflutren [From Definity] AdvReac Back Pain Verified 01/07/23 18:41 Active Medications: Current Medications Pharmacy Consult (Consult Rx Perform Med Rec) 1 each MISCELLANE ONCE PRN PRN Reason: Consult order Home Medications Medication Instructions Recorded Confirmed Last Taken Type clopidogrel 75 mg tablet 75 mg PO DAILY 11/24/22 01/26/23 Unknown History nicotine 21 mg/24 hr daily 1 patch topical DAILY 11/26/22 01/26/23 Unknown History transdermal patch apixaban 5 mg tablet (Eliquis) 5 mg PO BID 01/11/23 01/26/23 Unknown History fluticasone propionate 115 2 puff inhalation BID 01/11/23 01/26/23 Unknown History mcg-salmeterol 21 mcg/actuation HFA inhaler glipizide 10 mg tablet 10 mg PO DAILY 01/11/23 01/26/23 Unknown History insulin glargine 100 unit/mL (3 20 unit subcut BID 01/11/23 01/26/23 Unknown History mL) subcutaneous pen (Lantus Solostar U-100 Insulin) Physical Exam Vital Signs and Narrative: Vital Signs: Last Vital Signs Temp 98.0 F 01/26/23 18:00 Pulse 87 01/26/23 22:00 Resp 18 01/26/23 22:00 BP 138/88 01/26/23 22:00 Pulse Ox 95 01/26/23 22:00 O2 Del Method Room Air 01/26/23 18:00 BMI result Body Mass Index 27.6 Middle-aged female lying in bed in mild distress Neck supple, no JVD Irregular rate and rhythm, S1-S2 heard Bilateral crackles without wheezing Abdomen soft nontender, no guarding, no rigidity Patient is drowsy and awakens to verbal stimulus, oriented to self, place and person ; no focal motor deficit Extremity:?Left BKA Results Labs 01/26/23 16:03 01/26/23 16:03 Labs: Laboratory Results - last 24 hr 01/26/23 01/26/23 01/26/23 16:03 16:03 16:03 MCV 67.6 L MCH 19.0 L MCHC 28.1 L RDW 23.2 H Plt Count 257 D MPV TNP Immature Gran % (Auto) 0.5 H Neut % (Auto) 72.6 Lymph % (Auto) 17.1 L [place] % (Auto) 8.4 Eos % (Auto) 0.5 Baso % (Auto) 0.9 Lymph # (Auto) 1.0 L [place] # (Auto) 0.5 Eos # (Auto) 0.0 Baso # (Auto) 0.1 Abs Immat Gran (auto) 0.03 Absolute Neuts (auto) 4.2 Absolute Nucleated RBC 0.100 H Nucleated RBC % (auto) 1.7 H Smear Tech's Comments VERIFIED PT 21.1 H D INR 1.7 H APTT 29.9 Anion Gap 14 Estim Creat Clear Calc 55.0 Estimated GFR 50 Random Glucose 97 Lactic Acid Calcium 9.5 D Magnesium 1.9 Total Bilirubin 1.7 H AST 18 ALT 18 Alkaline Phosphatase 93 Total Protein 6.7 Albumin 3.5 Urine Color Urine Appearance Urine pH Ur Specific [place] Urine Protein Urine Glucose (UA) Urine Ketones Urine Blood Urine Nitrite Ur Leukocyte Esterase Urine RBC Urine WBC Ur Squamous Epith Cells Urine Bacteria Hyaline Casts COVID-19 (KATHLEEN) COVID-19 Clin Com 01/26/23 01/26/23 01/26/23 16:03 17:16 17:55 MCV MCH MCHC RDW Plt Count MPV Immature Gran % (Auto) Neut % (Auto) Lymph % (Auto) [place] % (Auto) Eos % (Auto) Baso % (Auto) Lymph # (Auto) [place] # (Auto) Eos # (Auto) Baso # (Auto) Abs Immat Gran (auto) Absolute Neuts (auto) Absolute Nucleated RBC Nucleated RBC % (auto) Smear Tech's Comments PT INR APTT Anion Gap Estim Creat Clear Calc Estimated GFR Random Glucose Lactic Acid 1.5 Calcium Magnesium Total Bilirubin AST ALT Alkaline Phosphatase Total Protein Albumin Urine Color Yellow Urine Appearance Clear Urine pH 6.0 Ur Specific [place] 1.015 Urine Protein 30 (1+) H Urine Glucose (UA) Negative Urine Ketones Negative Urine Blood Negative Urine Nitrite Negative Ur Leukocyte Esterase Negative Urine RBC 0-2 Urine WBC 0-5 Ur Squamous Epith Cells 3-5 Urine Bacteria None Seen Hyaline Casts 3-5 COVID-19 (KATHLEEN) Negative COVID-[facility] [place] Com See Note 01/26/23 19:13 MCV MCH MCHC RDW Plt Count MPV Immature Gran % (Auto) Neut % (Auto) Lymph % (Auto) [place] % (Auto) Eos % (Auto) Baso % (Auto) Lymph # (Auto) [place] # (Auto) Eos # (Auto) Baso # (Auto) Abs Immat Gran (auto) Absolute Neuts (auto) Absolute Nucleated RBC Nucleated RBC % (auto) Smear Tech's Comments PT INR APTT Anion Gap Estim Creat Clear Calc Estimated GFR Random Glucose Lactic Acid Calcium Magnesium Total Bilirubin AST ALT Alkaline Phosphatase Total Protein Albumin Urine Color Urine Appearance Urine pH Ur Specific [place] Urine Protein Urine Glucose (UA) Urine Ketones Urine Blood Urine Nitrite Ur Leukocyte Esterase Urine RBC Urine WBC Ur Squamous Epith Cells Urine Bacteria Hyaline Casts COVID-19 (KATHLEEN) Negative COVID-19 [employer] Com See Note Imaging Radiologist's Impressions: Impressions Chest X-Ray 01/26/23 15:50 IMPRESSION: Bilateral ill-defined nodular opacities, not significantly changed since prior recent chest x-ray and chest CT, though better assessed by the latter. Chest CTA 01/26/23 22:32 IMPRESSION: 1. No evidence of PE. 2. No evidence aortic dissection or aneurysm. 3. Moderate right and mild to moderate left pleural effusions are stable. 4. Bilateral lower lobe and right middle lobe subpleural groundglass opacities are stable. There is a new 5 mm groundglass opacity right lower lobes. VTE: negative Assessment and Plan (1) Septic pulmonary embolism: Status: Acute Plan This is a 52-year-old female with pertinent history of COPD not on home oxygen, congestive heart failure with reduced ejection fraction, ncu-ykryfav-zgkkuwhtv diabetes mellitus with neuropathy, CAD status post LAD stent, peripheral vascular disease status post left BKA, essential hypertension, paroxysmal atrial fibrillation on anticoagulation who presents to the emergency department for evaluation of cough, back pain and not feeling well. #.? Multifocal airspace opacities with central lucencies, concerning for cavitation with septic emboli.? Will admit patient and initiate empiric IV antibiotics.? Blood culture pending.? Consulting pulmonology, appreciate assistance.? Obtaining echo #.? Tbg-wlmmfdp-wfsaufbtl diabetes mellitus: Initiating Accu-Cheks with sliding scale insulin, reduce home Lantus #.? Congestive heart failure with reduced ejection fraction.? Continue Coreg and furosemide. Not on AIDAN/ARB. #.? Coronary artery disease status post stent to proximal LAD.? Continue beta-bl ocker, statin and Plavix #. COPD. No exacerbation during admission. Continue home inhalers #.? Essential hypertension.? Continue home antihypertensives #.? Tobacco use disorder.? Counseled regarding cessation.?Refused nicotine patch #.? Microcytic anemia.? Obtaining iron panel #. Paroxysmal atrial fibrillation. On Eliquis Med rec pending DVT prophylaxis:?On Eliquis Full code Admit as inpatient and will require two night minimum hospital stay for IV antibiotics.? Specialist consult pending Time Spent With Patient Time: Total time managing care of this patient today ____ minutes. Quality Stroke Does the patient have a stroke diagnosis?: No VTE Prior VTE?: No VTE Risk Level:: Medical - moderate - high VTE Device Contraindication: Treatment Not Indicated VTE Drug Contraindication: N/A - Med Ordered
--- NOTE | 2023-01-27 00:38 | PC.NURSE ---
pt has rung call pires multiple times requesting pain medications. This RN has attempted to explain that the medication are ordered, but not approved yet and thus cannot be pulled from the Pyxis, but would be pulled ROSARIO. pt became verbally abusive of staff stating do your fucking job , pointing her finger in this RN's face. Paged MD Montano per pt request. Pending approval of medication orders.
[2023-01-27 00:44] VITALS: BP 127/82; PULSE 86; RESP 18; TEMP 36.6; O2SAT 99
[2023-01-27] MEDS: Acetaminophen 325 MG TABLET 650 MG PO (00:45)
[2023-01-27] MEDS: Morphine Sulfate Immed Release 15 MG TABLET PO ×4 (00:45→12:22)
[2023-01-27 00:55] LABS: Iron 20 mcg/dL (30-160); Percent Iron Saturation 5 % (15-50); Total Iron Binding Capacity 377 mcg/dL (228-428); Unsaturated Iron Binding 357 ug/dL
[2023-01-27] MEDS: Piperacillin Sodium/Tazobactam 4.5 GM in 0.9 % Sodium Chloride 100 ML IV ×3 (00:59→12:22)
--- NOTE | 2023-01-27 01:05 | PC.NURSE ---
Requested Security presence for medication administration to endsure safety of staf. Medicatoins administered without complications. Report to Paige on Overflow. Pt being transfered.
[2023-01-27] MEDS: 0.9 % Sodium Chloride Flush 3 ML SYRINGE IVFLUSH (02:40)
[2023-01-27 02:41] VITALS: BP 121/72; PULSE 88; RESP 18; TEMP 36; O2SAT 99; BMI 27.9
--- NOTE | 2023-01-27 03:04 | PC.NURSE ---
pt came up from ED overflow. pt crying and complained about the back pain. provided heat pack. dr. Montano notified told me to give early po morphine at this point. given by this nurse. pt said, do you have IV morphine? It doesn't work by the mouth. still crying. vital is stable 120s/70s and 99% RA. HR 88. I will CONST monitor any changes.
--- NOTE | 2023-01-27 07:00 | CA_ITS ---
Transthoracic Echocardiogram Patient (Last, First, Middle): Keisha Chadwick, Gender: Female Date of : 1970 Age: 52 Procedure Date: 01/27/2023 Procedure Type: Transthoracic Echocardiogram Location: [facility] [place] Height: 160.02 cm Weight: 71.22 kg BSA: 1.74 m2 Heart Rate: 89 bpm BP: 121 / 72 mmHg Chronograph Operator: HEAVEN Referring MD: Noah Montano MD Marketing Graphics Specialist: Kurtis Cortez MD Symptoms: ?endocarditis Study Quality: Adequate ECG Rhythm: Sinus Conclusions: - 1. No obvious vegetations seen on this study 2. Severely reduced LV systolic function with regional wall motion abnormality consistent with ischemic cardiomyopathy with LVEF of 15-20% with elevated filling pressures 3. Thickened mitral and aortic valve without any obvious evidence of agitation with mild mitral regurgitation 4. Mildly elevated right systolic pressure and moderately elevated right atrial pressures 5. No gross pericardial effusion Findings Procedure Information Contrast agent, definity, is being given per protocol without apparent complications. Left Ventricle Normal left ventricular cavity size. There is normal left ventricular wall thickness. The left ventricular systolic function is severely decreased. The visually estimated ejection fraction is between 15-20%. There is evidence of regional wall motion abnormalities. Spectral Doppler is indicative of an impaired relaxation filling pattern. Elevated filling pressures. E/E prime ratio is >15, consistent with elevated filling pressures. Wall Motion Rest Echo Findings The mid anterior, mid inferior, apical lateral, and mid anterolateral segments are hypokinetic. The entire septum, the apex, apical anterior, and apical inferior segments are akinetic. All other scored wall segments showed normal motion. Right Ventricle Moderately increased right ventricular cavity size. There is moderately decreased right ventricular systolic function. Atria The left atrium is likely dilated. Interatrial shunt cannot be excluded. The right atrium is mildly dilated. Aortic Valve There is mild calcification of the aortic valve. There is moderate thickening of the aortic valve. Especially the non coronary and left coronary cusps are moderately to severely thickened. No obvious evidence of agitation Mitral Valve There is mild anterior and posterior mitral leaflet thickening. There is mild mitral valve regurgitation. There is no mitral valve stenosis. Pulmonic Valve The pulmonic valve was not well visualized. Tricuspid Valve Normal tricuspid valve structure. There is mild tricuspid valve regurgitation. Moderately elevated right atrial pressure. Mild pulmonary hypertension is present. Great Vessels All visible segments of the aorta are normal in size. The pulmonary artery was not well visualized. There is no dilatation of the sinuses of Valsalva and no dilatation of the ascending aorta. Venous The inferior vena cava is moderately dilated and collapses less than 50% with inspiration. Pericardium/Pleural There is no evidence of pericardial effusion. Prior Study Comparison No significant change compared to prior study dated: 09/27/2022. Measurements 2D Linear Measurements IVSd: 1.10 0.6-0.9/0.6-1.0 cm LVIDd: 5.50 3.9-5.3/4.2-5.9 cm LVIDd Index: 3.16 2.4-3.2/2.2-3.1 cm/m2 LVIDs: 4.60 2.0-3.6 cm LVPWd: 1.20 0.7-1.1 cm LA Diam: 4.80 2.7-3.8/3.0-4.0 cm LAIDs Index: 2.76 1.5-2.3 cm/m2 LV Mass: 320.50 67-162/88-224 g LV Mass Index: 184.20 43-95/49-115 g/m2 LVOT Diam: 2.10 3.0+(-)1.3 cm 2D Systolic Function EF 4C: 17.10 >55% EF 2C: 13.10 >55% EF BiP: 15.00 >55% Mitral Valve MV VTI: 0.22 MV Pk Bryant: 0.97 MV Mn Bryant: 0.71 MV Pk Grad: 4.00 MV Mn Grad: 2.00 MV Pk E: 0.75 MV PK A: 0.91 MV Decel Time: 162.00 E/A: 0.80 E'Lateral: 4.46 E'Medial: 2.94 E/E' Med: 25.50 E/E' Lat: 16.80 PHT: 86.00 MVA PHT: 2.56 MVA Continuity: 2.05 Decel Scott: 3.19 Aortic Valve AoV Pk Bryant: 1.14 AoV Mn Bryant: 0.79 AoV VTI: 0.21 AoV Pk Grad: 5.00 Aov Mn Grad: 3.00 CLARA Cont.VTI: 2.20 LVOT LVOT Pk Bryant: 0.70 LVOT Mn Bryant: 0.48 LVOT VTI: 0.13 LVOT Pk Grad: 2.00 LVOT Mn Grad: 1.00 LVOT Diam: 2.10 LVOT Area: 3.46 Diastolic Function MV Pk E: 0.75 MV Pk A: 0.91 E/A: 0.80 E'Medial: 2.94 E/E' Med: 25.50 E' Laterial: 4.46 E/E' Lat: 16.80 Right Ventricle TAPSE (mm): 15.30 TVS' Bryant: 10.00 Tricuspid Valve TR Pk Bryant: 2.65 TR Pk Grad: 28.00 RA Press: 15.00 RVSP: 43.00 Great Vessels Aorta Sinus of Valsalva: 3.00 2.0-3.5 cm Ao Asc: 3.20 2.1-3.4 cm Pulmonary Valve PV Pk Bryant: 0.69 Peak PV Grad: 2.00 Updated in Other Vendor System with Status of Final Kurtis Cortez MD electronically signed on 01/27/2023 11:27:44 AM with status of Final
[2023-01-27 07:16] LABS: MANUAL DIFF FLAG NO
[2023-01-27 07:23] LABS: Basophils Absolute Auto 0.1 X10*3/uL (0.0-0.2); Eosinophils Absolute Auto 0.1 X10*3/uL (0.0-0.4); Eosinophils Percent Auto 1.1 % (0-4); Hematocrit 33.5 % (37.0-47.0); Hemoglobin 9.3 g/dl (12.0-16.0); Imm Gran Abs Auto 0.02 X10*3/uL (0.00-0.03); Imm Gran Pct Auto 0.3 % (0.0-0.4); Lymphocytes Absolute Auto 1.4 X10*3/uL (1.2-4.9); Lymphocytes Percent Auto 22.7 % (20-40); Mean Corpuscular HGB Conc 27.8 g/dl (31.0-35.0); Mean Corpuscular Hemoglobin 18.9 pg (27.0-33.0); Mean Corpuscular Volume 68.1 fL (80.0-98.0); Monocytes Absolute Auto 0.6 X10*3/uL (0.1-1.2); Monocytes Percent Auto 9.4 % (2-11); Neutrophils Percent Auto 65.5 % (45-73); Platelet Count 251 X10*3/uL (160-400); Red Blood Count 4.92 X10*6/uL (4.20-5.50); Red Cell Distribution Width 23.5 % (11.0-16.0); White Blood Count 6.2 X10*3/uL (4.8-10.8)
[2023-01-27 07:24] LABS: NRBC Pct Auto 1.8 /100WBC (0.0-0.2)
[2023-01-27 07:48] LABS: Anion Gap 14 (12-20); Blood Urea Nitrogen 27 mg/dL (9-16); Calcium 9.6 mg/dL (8.4-10.2); Carbon Dioxide 26 mmol/L (22-29); Chloride 105 mmol/L (96-108); Creatinine Clr Calc Pharmacy 46.7; Estimated Glomerular Filt Rate 41; Glucose Random 56 mg/dL (60-115); Potassium 4.5 mmol/L (3.3-5.1); Sodium 140 mmol/L (135-145)
[2023-01-27 07:51] LABS: Glucose, Whole Blood 61 mg/dL (60-115)
[2023-01-27 07:51] LABS: Glucose, Whole Blood 58 mg/dL (60-115)
[2023-01-27 07:55] VITALS: BP 123/87; PULSE 86; RESP 16; TEMP 36; O2SAT 92
[2023-01-27] MEDS: Furosemide 40 MG TABLET PO (07:55)
[2023-01-27] MEDS: Apixaban 5 MG TABLET PO (07:55)
[2023-01-27] MEDS: carvediloL 3.125 MG TABLET PO (07:55)
[2023-01-27] MEDS: Clopidogrel Bisulfate 75 MG TABLET PO (07:55)
--- NOTE | 2023-01-27 08:14 | PHA.PROG ---
Admission Date/Time: January 27, 2023 00:07 Indication: RESP Weight in k.5 kg Serum Creatinine - Last 168 Hours 01/26/23 01/27/23 16:03 06:20 Creatinine 1.14 1.35 Estimated CrCl and GFR - Last 168 Hours 01/26/23 01/27/23 16:03 06:20 Estim Creat Clear Calc 55.0 46.7 Estimated GFR 50 41 Vancomycin Loading Dose: 1750 Current Vancomycin Dosing Regimen: 1250 Vancomycin Monitoring using AUC goal of 400 - 600 range with trough as surrogate marker: 504 Date and Time for next Vancomycin Level to be drawn: 01/28 @ 1600 Pharmacist Comments on Vancomycin Plan: Vancomycin dosing will take advantage of [employer] as a clinical decision support tool that uses Bayesian modeling to calculate individual patient's pharmacokinetic parameters and forecast the patient's drug concentration time course with the target goal AUC 24 range of 400 - 600 mg/L/hr.
[2023-01-27] MEDS: Fluticasone/Vilanterol 100/25 BLST.W.DEV 1 PUFF INHALE (08:20)
--- NOTE | 2023-01-27 08:55 | PM.EVENT ---
Event Note Date of Service: 01/27/23 Event Note: Readmitted for PNA for which she has not adhere to treatment either by leaving ama or taking meds, she advised to stay through treatment course with IV Abx, o/w A/P per H and P from this morning Time Spent With Patient Time: Total time managing care of this patient today ____ minutes.
[2023-01-27 08:57] VITALS: PULSE 94; RESP 22; O2SAT 95
[2023-01-27] MEDS: glipiZIDE 10 MG TABLET PO (10:07)
--- NOTE | 2023-01-27 11:00 | PM.CNPUL ---
History of Present Illness History of Present Illness Consult date: 01/27/23 Reason for consult: cough, chest pain and pneumonia Chief complaint: Cough Narrative: PULMONARY CONSULT This is a 52-year-old female with pertinent history of COPD not on home oxygen, congestive heart failure with reduced ejection fraction, [id number] diabetes mellitus with neuropathy, CAD status post LAD stent, peripheral vascular disease status post Lt. BKA ( stoma not completely healed ) , essential hypertension, paroxysmal atrial fibrillation on anticoagulation who presents to the emergency department for evaluation of cough, back pain and not feeling well.? Patient was admitted on 01/11 with multifocal airspace opacities concerning for septic emboli.? The patient had signed out on 01/12, without completing the treatment. Antibiotics were prescribed at the pharmacy( Doxycycline and Cefuroxime) and she states that she has been taking the antibiotics.. Patient returns with chest and back pain, and increased shortness of breath, with some cough. The pain is more towards the right side over the lower right chest. She is holding onto there and not able to describe whether this is pleuritic or continuous pain. She denies having had any fever or chills. She does have mild cough without any expectoration. Currently patient is not requiring oxygen. She is sitting up on the bed, and shows no respiratory distress. Review of Systems Review of Systems: Yes all other systems are reviewed and are negative PMFSH Past Medical History Medical History (Updated 01/27/23 @ 11:20 by Maldonado Davila MD) Asthma Atherosclerotic cardiovascular disease Atrial tachycardia Back pain Below-knee amputation of left lower extremity Cellulitis in diabetic foot COPD (chronic obstructive pulmonary disease) Coronary artery disease Diabetes Diabetic foot infection Essential hypertension GERD (gastroesophageal reflux disease) Hyperglycemia due to diabetes mellitus Hypertension Ischemic cardiomyopathy Osteomyelitis 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 PAD (peripheral artery disease) Septic pulmonary embolism Family History Family History Mother Hx of CABG Sister CAD (coronary artery disease) Surgical History Surgical History History of esophagogastroduodenoscopy (EGD) History of toe surgery (09/22/21) Status post below-knee amputation of left lower extremity (09/20/22) Social History Social History Household Members: Significant Other and Caregiver Household Members Other:: 2 Housing: Apartment Do you presently have visiting nurse or other home services: Yes (twice a day) Unable to assess alcohol history related to: Refusing to respond Alcohol intake: never Patient Tobacco Use Status: Current everyday Tobacco user Tobacco use type: Cigarette Cigarette Packs Per Day: 0.5 Cigarettes Per Day: 10.0 Years Smoked: since 8 years old e-Cigarette/Vaping Use: Never Used Second Hand Smoke Exposure: Yes Substance Use Type: Painkillers Advance Directives Date on File: 09/22/22 service: No Current occupational status: disabled Meds Allergies Allergy/AdvReac Type Severity Reaction Status Date / Time Penicillins [PENICILLINS] Allergy Severe RASH Verified 01/07/23 18:41 amoxicillin [AMOXICILLIN] Allergy Intermediate HIVES Verified 01/07/23 18:41 perflutren [From Definity] AdvReac Back Pain Verified 01/07/23 18:41 Active Medications: Current Medications Acetaminophen (Acetaminophen 325 Mg Tablet) 650 mg PO Q6H PRN PRN Reason: Pain, Mild (Pain Scale 1-3) Last Admin: 01/27/23 00:45 Dose: 650 mg Albuterol Sulfate (Albuterol Sulfate (0.083%) 2.5 Mg/3 Ml Vial.Neb) 2.5 mg INHALE Q6H PRN PRN Reason: Wheezing Albuterol Sulfate (Albuterol Sulfate 90 Mcg 8 Gm Inhaler) 1 puff INHALE Q4H PRN PRN Reason: Wheezing Apixaban (Apixaban 5 Mg Tablet) 5 mg PO BID [facility] Last Admin: 01/27/23 07:55 Dose: 5 mg Atorvastatin Calcium (Atorvastatin Calcium 80 Mg Tablet) 80 mg PO BEDTIME [facility] Carvedilol (Carvedilol 3.125 Mg Tablet) 3.125 mg PO BID [facility]; Protocol Last Admin: 01/27/23 07:55 Dose: 3.125 mg Clopidogrel Bisulfate (Clopidogrel Bisulfate 75 Mg Tablet) 75 mg PO DAILY [facility] Last Admin: 01/27/23 07:55 Dose: 75 mg Dextrose (Dextrose 50 % 25 Gm/50 Ml Syringe) 25 gm IVPUSH Q15M PRN; Protocol PRN Reason: per Hypoglycemia Standing Ord. Fluticasone/Vilanterol (Fluticasone/Vilanterol 100/25 Blst.W.Dev) 1 puff INHALE DAILY [facility] Last Admin: 01/27/23 08:20 Dose: 1 puff Furosemide (Furosemide 40 Mg Tablet) 40 mg PO BID [facility]; Protocol Last Admin: 01/27/23 07:55 Dose: 40 mg Glipizide (Glipizide 10 Mg Tablet) 10 mg PO DAILY [facility] Last Admin: 01/27/23 10:07 Dose: 10 mg Glucose (Glucose Gel 15 Gm Gel..Gram.) 15 gm PO Q15M PRN; Protocol PRN Reason: per Hypoglycemia Standing Ord. Piperacillin Sod/Tazobactam (Sod 4.5 gm/ Sodium Chloride) 100 mls @ 200 mls/hr IV Q6H [facility] Last Infusion: 01/27/23 06:48 Dose: Infused Vancomycin HCl 1,250 mg/ (Sodium Chloride) 250 mls @ 166.667 mls/hr IV Q24H [facility] Insulin Glargine (Insulin Glargine,Hum.Rec.Anlog 100 Unit/Ml 10 Ml Vial) 15 unit SUBCUT BID [facility] Last Admin: 01/27/23 07:56 Dose: Not Given Insulin Human Lispro (Insulin Lispro 100 Unit/Ml 3 Ml Vial) 0 unit SUBCUT QIDACHS [facility]; Protocol Last Admin: 01/27/23 07:56 Dose: Not Given Melatonin (Melatonin 3 Mg Tablet) 6 mg PO BEDTIME PRN PRN Reason: Insomnia Morphine Sulfate (Morphine Sulfate Immed Release 15 Mg Tablet) 15 mg PO Q4H PRN PRN Reason: Pain, Moderate(Pain Scale 4-6) Last Admin: 01/27/23 07:55 Dose: 15 mg Nicotine (Nicotine 21 Mg Patch.Td24) 21 mg TRANSDERMA DAILY [facility] Last Admin: 01/27/23 10:08 Dose: Not Given Ondansetron HCl (Ondansetron Hcl 4 Mg/2 Ml Vial) 4 mg IVPUSH Q8H PRN PRN Reason: Nausea and Vomiting Pharmacy Consult (Consult Rx Perform Med Rec) 1 each MISCELLANE ONCE PRN PRN Reason: Consult order Pharmacy Consult (Consult Rx Vancomycin Dosing) 1 each MISCELLANE DAILY PRN PRN Reason: Consult order Sodium Chloride (0.9 % Sodium Chloride Flush 3 Ml Syringe) 3 ml IVFLUSH QSHIFT [facility] Last Admin: 01/27/23 02:40 Dose: 3 ml Tiotropium Winifred (Tiotropium Winifred 2.5 Mcg Inhaler) 2 puff INHALE DAILY [facility] Last Admin: 01/27/23 08:20 Dose: 2 puff Home Medications Medication Instructions Recorded Confirmed Last Taken Type clopidogrel 75 mg tablet 75 mg PO DAILY 11/24/22 01/26/23 Unknown History nicotine 21 mg/24 hr daily 1 patch topical DAILY 11/26/22 01/26/23 Unknown History transdermal patch apixaban 5 mg tablet (Eliquis) 5 mg PO BID 01/11/23 01/26/23 Unknown History fluticasone propionate 115 2 puff inhalation BID 01/11/23 01/26/23 Unknown History mcg-salmeterol 21 mcg/actuation HFA inhaler glipizide 10 mg tablet 10 mg PO DAILY 01/11/23 01/26/23 Unknown History insulin glargine 100 unit/mL (3 20 unit subcut BID 01/11/23 01/26/23 Unknown History mL) subcutaneous pen (Lantus Solostar U-100 Insulin) Physical Exam Vital Signs: Vital Signs: Last Vital Signs Temp 96.8 F 01/27/23 07:55 Pulse 94 01/27/23 08:57 Resp 22 H 01/27/23 08:57 BP 123/87 01/27/23 07:55 Pulse Ox 92 01/27/23 07:55 O2 Del Method Room Air 01/27/23 07:55 BMI result Body Mass Index 27.9 Const: Other: Patient is sitting on the bed, holding on to her right lower chest, complains of pain and discomfort in that area. Does not seem to be in any acute distress. General: no acute distress, alert and awake Orientation/consciousness: patient oriented x3 HEENT: Head: Yes normal to inspection General nose exam: No nasal polyps present and No nasal discharge present Face and sinus: Yes sinuses nontender Mouth: oropharynx normal Throat: Yes posterior oropharynx normal Eyes: General: appearance normal, both eyes and all related structures Neck: Neck: Yes normal visual inspection, Yes no lymphadenopathy, Yes trachea midline and Yes no JVD Thyroid: Thyroid normal Chest: Chest palpation & inspection: normal inspection of the chest, normal palpation of entire chest wall and tenderness (There is no localized tenderness but she is somewhat sensitive overRLL area) Resp: Other: Percussion note resonant, breath sounds are distant but clear I did not hear any wheezes, crepitations or pleural rub Cardio: Palpation: normal PMI Rate: regular rate Rhythm: regular rhythm Heart sounds: no gallops and no murmurs Peripheral pulses: Peripheral pulses 2+ throughout GI: Palpation (GI): Soft to palpation, nontender, No hepatosplenomegaly present and no masses Auscultation: normal bowel sounds Back/Spine/Pelvis: Thoracic/Lumbar Spine: thoracic and lumbar spine normal to inspection Skin: General skin exam: no rashes or lesions noted Neuro: General: patient oriented x3 and no focal motor deficits Cranial nerves: Yes CN's II-XII intact bilaterally Extrem: Other: Left below-knee amputation, the stoma is covered by dressing, according to previous reports it is not completely healed General: Yes normal to inspection, Yes no clubbing, cyanosis or edema and Yes no calf tenderness Psych: Appearance: grossly normal Affect: Anxious affect present Results Laboratory Findings 01/27/23 06:20 01/27/23 06:20 ABG, PT/INR, D-dimer: PT/INR, D-dimer PT 21.1 SEC (11.1-13.3) H D 01/26/23 16:03 INR 1.7 (0.9-1.1) H 01/26/23 16:03 Abnormal lab findings: Abnormal Labs 01/26/23 01/26/23 01/26/23 16:03 16:03 16:03 Hgb 9.4 L Hct 33.4 L MCV 67.6 L MCH 19.0 L MCHC 28.1 L RDW 23.2 H Immature Gran % (Auto) 0.5 H Lymph % (Auto) 17.1 L Lymph # (Auto) 1.0 L Absolute Nucleated RBC 0.100 H Nucleated RBC % (auto) 1.7 H PT 21.1 H D INR 1.7 H BUN 26 H POC Glucose Random Glucose Iron % Saturation Total Bilirubin 1.7 H Urine Protein 01/26/23 01/27/23 01/27/23 17:16 00:31 06:20 Hgb 9.3 L Hct 33.5 L MCV 68.1 L MCH 18.9 L MCHC 27.8 L RDW 23.5 H Immature Gran % (Auto) Lymph % (Auto) Lymph # (Auto) Absolute Nucleated RBC 0.110 H Nucleated RBC % (auto) 1.8 H PT INR BUN POC Glucose Random Glucose Iron 20 L % Saturation 5 L Total Bilirubin Urine Protein 30 (1+) H 01/27/23 01/27/23 06:20 07:15 Hgb Hct MCV MCH MCHC RDW Immature Gran % (Auto) Lymph % (Auto) Lymph # (Auto) Absolute Nucleated RBC Nucleated RBC % (auto) PT INR BUN 27 H POC Glucose 58 L* Random Glucose 56 L* Iron % Saturation Total Bilirubin Urine Protein Microbiology: Blood cultures are all negative. Diagnostic Findings Chest x-ray: report reviewed and image reviewed CT scan - chest: report reviewed and image reviewed Assessment and Plan (1) Septic pulmonary embolism: Status: Acute (2) Multifocal pneumonia: Status: Acute (3) COPD (chronic obstructive pulmonary disease): Status: Acute (4) Back pain: Status: Acute Plan 52 years old female with complex and extensive medical history. She did have evidence on the CT scan on 01/11, of bilateral multifocal densities suggestive of septic emboli, considered to be secondary to non healed stoma of left BKA. Treatment was incomplete as she left against medical advice. Appropriate oral antibiotics were prescribed for her to continue at home, she claims she took the medicines but I would not be very sure about this. Current back can chest pain , may not be all related to pulmonary densities, or may be due to pleuritis. CTA of the chest she shows be bilateral small pulmonary densities, but the cavitary density in the left lower lobe is the actually partially improved. Recc . I agree with broad-spectrum antibiotic coverage by combination of IV VANCO and ZOSYN , but if cultures are again negative then can be changed to oral doxycycline and cefuroxime which she needs to continue for 2-3 weeks. Continue Breo and Incruse for COPD, and in addition she will use Ventolin 2 puffs Q 4-6 hours p.r.n.. Patient does not need oxygen. Pain control with oral analgesics and she may benefit from local application of lidocaine patch. Thank you very much for asthma to see this patient. Time Spent With Patient Time: Total time managing care of this patient today ____ minutes. Procedures Date of Service Date of Service: 01/27/23
[2023-01-27 11:12] LABS: Glucose, Whole Blood 73 mg/dL (60-115)
[2023-01-27 11:32] LABS: Amphetamine Screen Urine Not Detected (Not Detect); Barbiturates, Urine Not Detected (Not Detect); Benzodiazepines Screen Urine Not Detected (Not Detect); Cannabinoid Screen Urine Not Detected (Not Detect); Cocaine Screen Urine Not Detected (Not Detect); Opiate Screen Urine POSITIVE (Not Detect); Phencyclidine Screen Urine Not Detected (Not Detect)
[2023-01-27 12:28] VITALS: BP 140/81
--- NOTE | 2023-01-27 12:39 | MHC.CM.PN ---
PT REPORTS SHE LIVES WITH HER S/O AND REQUIRES ASSISTANCE WITH CARE SHE SAYS HER DAUGHTER WORKS HER LEGAL CLERK AND SHE HAS TWICE DAILY VISITS FROM [employer] PT USES A WHEEL CHAIR FOR MOBILITY HCP ON FILE BERNABE GARCIA IS LISTED PTS PCP, HOWEVER SHE REPORTS SHE GOES TO [facility] ON [address] AND NO LONGER SEES THIS PROVIDER CM WILL CALL TO VERIFY PROVIDER DCP: [facility] [employer] LEGAL CLERK/DAUGHTER TO TRANSPORT
--- NOTE | 2023-01-27 15:19 | PC.NURSE ---
At approximately 1500 11 loose pills found in pts bed wrapped up in grocery bag, tucked in the bed sheets by SPEEDOMETER MECHANIC. Pills removed from room and brought to this RN where medication was counted with SPEEDOMETER MECHANIC and placed in cup. Security called to bedside and sugar refinery supervisor made aware. Security and this RN entered patients room to address the pills found by SPEEDOMETER MECHANIC. At this time patient started swearing at staff stating, I'm not a drug addict they are prescribed . Education provided to patient on safety of medications only to be dispensed by the nurse not from her own belongings due to risk of over medication or med interaction. Pt gave permission for security to search belongings. Additional medications were found including marked bottles of morphine and Tylenol. Pt was informed that medications needed to be brought to pharmacy to be verified and stored for the duration of her stay. Pt began to scream at staff stating she was being called a drug addict. Pt stated she wanted to leave AMA and asked for AMA paper. MD Umaña aware, at bedside. Pt then stated she would not sign paperwork. Pt was educated on risks of leaving AMA, despite education pt decided to leave, two IVs removed. Pt left via wheelchair with two security officers. aware.
[2023-01-29 12:46] LABS: Fentanyl, urine SEE COMMENTS (Not Detect)
[2023-02-02 09:15] LABS: Fentanyl, Ur NEGATIVE; Norfentanyl, Ur NEGATIVE
--- NOTE | 2023-02-06 09:37 | P.DS_ITS ---
DS: Providers Provider Date of Service: 01/27/23 Date of admission: 01/27/23 00:07 Primary care physician: Danica Vlalejo NP Consults: 01/27/23 00:07 Consult to Pulmonology Routine Consulting Provider: [facility] Reason for consultation: ?septic emboli DS: Diagnosis Discharge Diagnosis (1) Septic pulmonary embolism: Status: Acute (2) Multifocal pneumonia: Status: Acute (3) COPD (chronic obstructive pulmonary disease): Status: Acute (4) Back pain: Status: Acute DS: Summary Hospital Course Hospital Course: See H and P of 01/27/23 for details. Patient was admitted and was being treated for multifocal pneumonia and decided to leave AMA on the same day of admission, as has been a pattern for her leaving AMA for virtually all admissions. She was advised to stay and understood she was taking substantial risk that could result serious conditions, including even . She was alert oriented to self, place and time and was able to say this back in her own words Final diagnosis: Multifocal pneumonia Time Spent with Patient Time attestation: Total time managing care of this patient today ____ minutes. Discharge coordination time: Greater than 30 minutes Quality: Safe Use of Opioids Does Pt have an Active Cancer Diagnosis on the Problem List?: No Quality: Stroke Does the patient have a stroke diagnosis?: No Physical Exam Vital Signs: Vital Signs: Last Vital Signs Temp 96.8 F 01/27/23 07:55 Pulse 94 01/27/23 08:57 Resp 22 H 01/27/23 08:57 BP 140/81 H 01/27/23 12:28 Pulse Ox 92 01/27/23 07:55 O2 Del Method Room Air 01/27/23 07:55 BMI result Body Mass Index 27.9 DS: Data Data Completed and Pending Completed studies during hospitalization [Text1]: Procedures Discharge Plan Discharge Anticipated Discharge Date/Time: 01/27/23 09:40 Patient Disposition: Left Against Medical Advice Discharge Diagnosis: Multifocal pneumonia Referrals: Danica Vallejo NP [Primary Care Provider] - 1 Week Discharge Medications: No Action albuterol sulfate 2.5 mg /3 mL (0.083 %) solution for nebulization 1 vial inhalation Q6H PRN (Reason: Wheezing) Qty: 90 0RF albuterol sulfate [Ventolin HFA] 90 mcg/actuation HFA aerosol inhaler 1 puff INHALATION Q4H PRN (Reason: Wheezing) Qty: 1 0RF Incruse Ellipta 62.5 mcg/actuation blister with device 1 puff PO DAILY Qty: 1 0RF glipizide 10 mg tablet 10 mg PO DAILY insulin glargine [Lantus Solostar U-100 Insulin] 100 unit/mL (3 mL) insulin pen 20 unit subcut BID fluticasone propion-salmeterol 115-21 mcg/actuation HFA aerosol inhaler 2 puff INHALATION BID Eliquis 5 mg tablet 5 mg PO BID cefuroxime axetil 500 mg tablet 500 mg PO Q12H 14 Days Qty: 28 0RF morphine 15 mg tablet 15 mg PO Q4-6H PRN (Reason: pain) Qty: 14 0RF Rx Instructions: Patient may request partial fill; Partial Fill upon patient request. doxycycline hyclate 100 mg tablet 100 mg PO Q12H 14 Days Qty: 28 0RF atorvastatin 80 mg Tablet 80 mg PO BEDTIME 30 Days Qty: 30 0RF carvedilol 3.125 mg Tablet 3.125 mg PO BID 30 Days Qty: 60 0RF Protocol: Hold for SBP/HR < HOLD for SBP < : 90 HOLD for HR < : 60 furosemide 40 mg tablet 40 mg PO BID Qty: 60 2RF clopidogrel 75 mg tablet 75 mg PO DAILY nicotine 21 mg/24 hr patch 24 hour 1 patch topical DAILY Discharge Orders: Discharge Order (Routine); Ordered 02/06/23 Ordered By: Delta Umaña Diet: Advance to usual diet Care Plan Goals: Left AMA Health Concerns: Left AMA Plan of Treatment: left AMA Assessment: Left AMA Discharge Date/Time: 01/27/23 15:15
== END 2023-01-27 15:15 | disposition left against medical advice (07) | DRG 137 ==
LOC: HO.ED 17:47 → HO.EDOVER 01-27 00:11 → HO.S3 01-27 01:44
PROVIDERS: Physician Assistant; Physician Assistant Medical; Admitting Provider Student in an Organized Health Care Education/Training Program; Emergency Provider Emergency Medicine; PCP Nurse Practitioner Family; Visit Provider Internal Medicine
DX: J85.1 Abscess of lung with pneumonia (principal); I26.90 Septic pulmonary embolism without acute cor pulmonale; I11.0 Hypertensive heart disease with heart failure; E11.40 Type 2 diabetes mellitus with diabetic neuropathy, unspecified; E11.51 Type 2 diabetes mellitus with diabetic peripheral angiopathy without gangrene; I50.22 Chronic systolic (congestive) heart failure; J44.0 Chronic obstructive pulmonary disease with (acute) lower respiratory infection; I10 Essential (primary) hypertension; F17.210 Nicotine dependence, cigarettes, uncomplicated; I48.0 Paroxysmal atrial fibrillation; I25.10 Atherosclerotic heart disease of native coronary artery without angina pectoris; Z89.512 Acquired absence of left leg below knee; Z20.822 Contact with and (suspected) exposure to COVID-19; Z71.6 Tobacco abuse counseling; Z88.0 Allergy status to penicillin; Z79.4 Long term (current) use of insulin; Z79.01 Long term (current) use of anticoagulants; Z79.02 Long term (current) use of antithrombotics/antiplatelets; Z79.51 Long term (current) use of inhaled steroids; Z79.899 Other long term (current) drug therapy
CPT/HCPCS: 36415; 71046; 71275; 80048; 80053; 80307; 80354; 81001; 82947; 83540; 83605; 83735; 84484; 85025; 85610; 85730; 87040; 87635; 93005; 93306; 94640; 99221; 99285; J2270; J2543; J3370; Q9957; Q9967

== ENCOUNTER 2023-01-27 00:07 | Outpatient (BNV) | payer OTHER, SELFPAY | END 2023-01-27 07:00 | PROVIDERS: Admitting Provider Student in an Organized Health Care Education/Training Program; Emergency Provider Emergency Medicine; PCP Nurse Practitioner Family; Visit Provider Internal Medicine Cardiovascular Disease | DX: I34.0 Nonrheumatic mitral (valve) insufficiency (principal) | CPT/HCPCS: 93306 ==

== ENCOUNTER → 2023-01-27 00:07 | Outpatient (BNV) | payer OTHER, SELFPAY | PROVIDERS: Admitting Provider Student in an Organized Health Care Education/Training Program; Emergency Provider Emergency Medicine; PCP Nurse Practitioner Family; Visit Provider Student in an Organized Health Care Education/Training Program | DX: I26.90 Septic pulmonary embolism without acute cor pulmonale (principal); Z53.29 Procedure and treatment not carried out because of patient's decision for other reasons | CPT/HCPCS: 99235; 99499 ==

== ENCOUNTER → 2023-01-27 00:07 | Outpatient (BNV) | payer OTHER, SELFPAY | PROVIDERS: Admitting Provider Student in an Organized Health Care Education/Training Program; Emergency Provider Emergency Medicine; PCP Nurse Practitioner Family; Visit Provider Internal Medicine | DX: I26.90 Septic pulmonary embolism without acute cor pulmonale (principal); J18.9 Pneumonia, unspecified organism; J44.9 Chronic obstructive pulmonary disease, unspecified; M54.9 Dorsalgia, unspecified | CPT/HCPCS: 99232 ==

== ENCOUNTER 2023-02-09 13:13 | Outpatient (AMB) | payer OTHER, SELFPAY ==
--- NOTE | 2023-02-09 13:15 | A.OFFVIS_ITS ---
Intake Vital Signs 02/09/23 13:25 Height 5 ft 3 in Weight 156 lb 8.451 oz BMI 27.7 Pulse 78 Intake Visit Reasons: 1 mth follow up BKA Intake Note: Patient is seen in office for one month follow up visit, post below the knee amputation. Patient c/o:admits to increase pain, swollen, red, minimal discharge, has visiting nurses coming in 2 times a day, and seen wound center weekly. Hardwood Floor Layer Required: No Accompanied by: Other Relationship Allergies Penicillins [PENICILLINS] Allergy (Severe, Verified 02/09/23 13:26) RASH amoxicillin [AMOXICILLIN] Allergy (Intermediate, Verified 02/09/23 13:26) HIVES perflutren [From Definity] Adverse Reaction (Verified 02/09/23 13:26) Back Pain Medication List - Last Reconciled 02/10/23 by Luis Miguel Cantu MD [BRUNO wraps As directed] albuterol sulfate 1 vial inhalation Q6H PRN albuterol sulfate 90 mcg/actuation (Ventolin HFA) 1 puff inhalation Q4H PRN apixaban (Eliquis) 5 mg PO BID atorvastatin 80 mg PO BEDTIME 30 days carvedilol 3.125 mg See Protocol PO BID 30 days cefuroxime axetil 500 mg PO Q12H 14 days clopidogrel 75 mg PO DAILY doxycycline hyclate 100 mg PO Q12H 14 days fluticasone propion-salmeterol 115-21 mcg/actuation 2 puffs inhalation BID furosemide 40 mg PO BID [gauze sponges As directed] glipizide 10 mg PO DAILY insulin glargine (Lantus Solostar U-100 Insulin) 20 units subcut BID [Kerlix roll As directed] nicotine 1 patch topical DAILY oxycodone 5 mg PO Q8H PRN umeclidinium 62.5 mcg/actuation (Incruse Ellipta) 1 puff PO DAILY HPI HPI Comments History of Present Illness Details 52-year-old female patient status post left leg below-knee amputation returning for wound check. She was recently admitted to the medical service and found to have a heart infection. She signed out AMA of both [facility] and [facility]. She has drainage from the incision. She reports VNA stop coming to her house and she has no dressings. The seriousness of her medical condition and need for hospitalization was reinforced several times however patient refuses readmission. [facility] Medical History Asthma Atherosclerotic cardiovascular disease Atrial tachycardia Back pain Below-knee amputation of left lower extremity Cellulitis in diabetic foot COPD (chronic obstructive pulmonary disease) Coronary artery disease Diabetes Diabetic foot infection Essential hypertension GERD (gastroesophageal reflux disease) Hyperglycemia due to diabetes mellitus Hypertension Ischemic cardiomyopathy Osteomyelitis 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 PAD (peripheral artery disease) Septic pulmonary embolism Surgical History History of esophagogastroduodenoscopy (EGD) History of toe surgery (09/22/21) Status post below-knee amputation of left lower extremity (09/20/22) Family History Mother Hx of CABG Sister CAD (coronary artery disease) Social History Household Members: Significant Other and Caregiver Household Members Other:: 2 Housing: Apartment Do you presently have visiting nurse or other home services: Yes (twice a day) Unable to assess alcohol history related to: Refusing to respond Alcohol intake: never Patient Tobacco Use Status: Current everyday Tobacco user Tobacco use type: Cigarette Cigarette Packs Per Day: 0.5 Cigarettes Per Day: 10.0 Years Smoked: since 8 years old e-Cigarette/Vaping Use: Never Used Second Hand Smoke Exposure: Yes Substance Use Type: Painkillers Advance Directives Date on File: 09/22/22 service: No Current occupational status: disabled Physical Exam Vital Signs: Last Vital Signs Pulse 78 02/09/23 13:25 BMI result Body Mass Index 27.7 Const General: no acute distress Nutritional Appearance: well nourished Orientation/consciousness: patient oriented x3 Limitations: wheelchair HEENT Head: Yes normocephalic Teeth and gingiva: edentulous Resp Effort & Inspection: normal respiratory effort, audible wheezes, Actively coughing and no respiratory distress Skin General skin exam: no rashes or lesions noted Neuro General: patient oriented x3 Extrem Other: Left. Less edema noted today although still edema at the stump. Open wound on the medial aspect of the BKA stump with necrotic tissue. This was excised using a scissors for an area measuring approximately 5 x 3 cm. Dry sterile dressings, Kerlix and Bruno bandage were then applied. Assessment & Plan Assessment & Plan (1) Wound dehiscence: Code(s): T81.30XA - Disruption of wound, unspecified, initial encounter Plan Wound dehiscence after fall following left BKA. Wound remains open with necrotic tissue at the base. This was excised using a sharp scissors as noted above. Dry sterile dressings were applied. Prescription for wound care supplies provided to patient. The importance of treatment for her heart infect ion was reinforced and readmission encouraged. Follow-up in 1 month if not hospitalized. Medications: New oxycodone Partial Fill upon patient request. 5 mg PO Q8H PRN 15 ea 0RF pain T81.30XA - Disruption of wound, unspecified, initial encounter Discontinued montelukast 1 tab PO BEDTIME 30 tabs 0RF gabapentin 2 caps PO BID 120 caps 0RF morphine Patient may request partial fill; Partial Fill upon patient request. Discontinued Reason: Patient Completed Course 15 mg PO Q4-6H PRN 14 tabs 0RF pain Coding Level of Care Code Global (00338) Diagnoses Wound dehiscence T81.30XA
[2023-02-09 13:25] VITALS: PULSE 78; BMI 27.7
== END 2023-02-09 13:52 | disposition home or self-care (01) ==
PROVIDERS: PCP Nurse Practitioner Family; Visit Provider Surgery
DX: T81.30XA Disruption of wound, unspecified, initial encounter (principal)
CPT/HCPCS: 97597; 99214

== ENCOUNTER → 2023-02-09 13:13 | Outpatient (BNVA) | payer OTHER, SELFPAY | PROVIDERS: PCP Nurse Practitioner Family; Visit Provider Surgery | DX: T87.81 Dehiscence of amputation stump (principal) | CPT/HCPCS: 97597; 99212 ==

== ENCOUNTER 2023-02-13 18:24 | Inpatient (IN) | payer OTHER, SELFPAY ==
--- NOTE | 2023-02-13 | ECG_ITS ---
Test Reason : CA Blood Pressure : / mmHG Vent. Rate : 145 BPM Atrial Rate : 145 BPM P-R Int : 168 ms QRS Dur : 086 ms QT Int : 244 ms P-R-T Axes : 085 098 099 degrees QTc Int : 379 ms Sinus tachycardia Rightward axis Pulmonary disease pattern Septal infarct (cited on or before 26-JAN-2023) Abnormal ECG When compared with ECG of 13-FEB-2023 19:45, Nonspecific T wave abnormality now evident in Inferior leads Referred By: Aleja Brennan Electronically Signed By:JARRED BARRETO
--- NOTE | ~2023-02-13 | XR_ITS ---
EXAMINATION: XR CHEST CLINICAL INFORMATION: Reason for Exam tachypnea COMPARISON: Chest radiograph 02/13/2023 TECHNIQUE: One view of the chest FINDINGS: Lines and tubes: Interval removal of the endotracheal tube and left internal jugular central venous catheter. Right upper extremity PICC catheter tip terminates overlying the right atrium. EKG leads overlie the patient. Layering bilateral pleural effusions on the left increased from prior with new dense left midlung consolidation which may reflect superimposed aspiration or infection No pneumothorax. Unchanged cardiomediastinal silhouette. XR/XR chest 1V IMPRESSION: 1. Layering bilateral pleural effusions on the left increased from prior with worsening new left midlung consolidation which may reflect superimposed aspiration or infection. 2. Right upper extremity PICC catheter tip terminates overlying the right atrium. No pneumothorax. 3. Interval removal of the endotracheal tube and left internal jugular central venous catheter.
--- NOTE | ~2023-02-13 | MR_ITS ---
MRI OF THE BRAIN WITHOUT IV CONTRAST INDICATION: Encephalopathy status post cardiac arrest. Rule out anoxic injury. COMPARISON: CT head February 14, 2023. TECHNIQUE: Multiplanar multisequence MR imaging of the brain was obtained without IV contrast. FINDINGS: There is no hydrocephalus, extra-axial surface collection, or herniation. There is mild chronic microangiopathy. The major flow voids at the skull base are preserved. Nodular prominence of the basilar artery flow void tip for which a CTA or MRA of the head would be helpful in assessing for a basilar artery tip aneurysm. There is no acute infarct on diffusion-weighted imaging. There is no intracranial hemorrhage on the gradient recalled echo acquisition. The midline structures are normal. The cerebellar tonsils are normally positioned. The cerebellum and brainstem are normal. The craniocervical junction is normal. Osseous marrow signal intensity is homogenous. The visualized soft tissues are unremarkable. There is a moderate right mastoid effusion. MR/MR head/brain wo con IMPRESSION: - Nodular prominence of the basilar artery flow void tip for which a CTA or MRA of the head would be helpful in assessing for a basilar artery tip aneurysm. There is no evidence of acute intracranial hemorrhage on the GRE series. - No acute intracranial findings. There is no evidence of cerebral anoxic injury and there are no acute infarcts. - There is mild chronic microangiopathy. - There is a moderate right mastoid effusion.
--- NOTE | ~2023-02-13 | XR_ITS ---
EXAMINATION: XR CHEST CLINICAL INFORMATION: Chest pain COMPARISON: 01/26/2023 TECHNIQUE: 2 views of the chest were obtained. FINDINGS: Overall increasing pleural effusions at both bases with associated minor airspace disease both bases. No CHF. Heart size remains mildly prominent. No other change. XR/XR chest 2V IMPRESSION: Increasing small bilateral pleural effusions.
--- NOTE | ~2023-02-13 | CT_ITS ---
EXAMINATION: CT ANGIOGRAM OF THE CHEST WITH AND WITHOUT CONTRAST (CT PULMONARY ANGIOGRAM FOR PE) CLINICAL INFORMATION: Shortness of breath. COMPARISON: 01/26/2023. TECHNIQUE: Prior to contrast administration, noncontrast localization images were obtained. Subsequently, multidetector volumetric imaging was performed from the thoracic inlet to below the diaphragms following the administration of 80 mL Omnipaque 350 intravenous contrast. No contrast reaction reported Sagittal, coronal, and MIP oblique sagittal reformatted images were obtained on the CT workstation, uploaded to PACS, and reviewed. This CT examination was performed using dose optimization techniques as appropriate, variously including the following: *Automated exposure control *Adjustment of mA and/or kV according to patient size (this includes techniques or standardized protocols for targeted exams where dose is matched to indication/reason for exam; i.e. extremities or head) *Use of iterative reconstruction technique Total exam dose-length product 408.84 mGy-cm FINDINGS: QUALITY OF STUDY/CONTRAST BOLUS: Satisfactory. PULMONARY ARTERIES: No pulmonary emboli. THORACIC AORTA: No aneurysm. LUNG: There is an endotracheal tube in good position. There are bilateral lower lung field infiltrates/consolidation greater on the right associated with a moderate right and a small left pleural effusion. PLEURA: There is a moderate right and a small left pleural effusion. MEDIASTINUM: The heart is mildly enlarged. No evidence of septal bowing or right heart strain. There is no pericardial effusion. There is no significant lymph node enlargement. CORONARY ARTERY CALCIFICATION: Mild with an apparent coronary artery stent is in place. CHEST WALL/AXILLA: No axillary or internal mammary lymphadenopathy. OSSEOUS STRUCTURES: No acute or suspicious osseous abnormality. UPPER ABDOMEN: The liver is irregular in contour. There is reflux of contrast into the hepatic veins. CT/CT angio chest PE protocol IMPRESSION: 1. No evidence for pulmonary embolism. 2. Moderate right and small left pleural effusions. 3. Bilateral lower lung field consolidation/infiltrates likely a combination of pneumonia and atelectasis. VTE: Negative for pulmonary embolism.
--- NOTE | ~2023-02-13 | XR_ITS ---
EXAMINATION: XR CHEST CLINICAL INFORMATION: Central line placement. COMPARISON: Most recent chest radiograph done earlier the same day. TECHNIQUE: Frontal view of the chest was obtained. FINDINGS: Interval placement of a left-sided central venous catheter with the tip in the region of the SVC. Interval placement of an endotracheal tube with the tip approximately 3.3 cm proximal to the dayne. Layering right-sided pleural effusion with adjacent atelectasis, slightly more prominent when compared to the prior examination. Small, layering left-sided pleural effusion, unchanged. Stable cardiomediastinal silhouette. No pneumothorax. XR/XR chest 1V IMPRESSION: 1. Interval placement of a left-sided central venous catheter with the tip in the region of the SVC. Endotracheal tube with its tip approximately 3.3 cm proximal to the dayne. 2. Layering right-sided pleural effusion with adjacent atelectasis, slightly more prominent when compared to the prior examination. Small, layering left-sided pleural effusion, unchanged. 3. No pneumothorax or pneumomediastinum.
--- NOTE | ~2023-02-13 | US_ITS ---
EXAMINATION: US VENOUS ULTRASOUND WITH DOPPLER LOWER EXTREMITY, LEFT CLINICAL INFORMATION: Edema and swelling. COMPARISON: Venous duplex Doppler ultrasound exam left lower extremity October 21, 2022 TECHNIQUE: Ultrasound of the deep veins is performed from the hip to the calf with compression sonography and color and pulse Doppler assessment. Spectral analysis with color-flow imaging is performed. FINDINGS: Patient has [id number] amputation. There is swelling and edema in the soft tissues of the leg. No focal fluid collection or abscess. Morphologically normal-appearing lymph nodes with fatty adrian in the groin. There is normal venous compression and respiratory variation and augmented flow. The visualized common femoral vein, superficial femoral vein, profunda femoral vein, and popliteal venous segments shows no evidence of deep venous thrombosis. There is no significant popliteal fossa cyst. If the patient's symptoms persist, followup ultrasound in 5 days 7 days might be of value to exclude proximal propagation from a non-visualized calf vein. US/US venous duplex LE LT IMPRESSION: No DVT demonstrated in the left lower extremity.
--- NOTE | ~2023-02-13 | CT_ITS ---
EXAMINATION: CT HEAD WITHOUT CONTRAST CLINICAL INFORMATION: Altered mental status. COMPARISON: 12/25/2001 TECHNIQUE: Contiguous axial imaging was performed from the skull base to vertex without intravenous administration of contrast. This CT examination was performed using dose optimization techniques as appropriate, variously including the following: *Automated exposure control *Adjustment of mA and/or kV according to patient size (this includes techniques or standardized protocols for targeted exams where dose is matched to indication/reason for exam; i.e. extremities or head) *Use of iterative reconstruction technique DLP: 663.98 mGy-cm FINDINGS: The lateral, third and the fourth ventricles are normally outlined. The cortical sulci and basal cisterns are normally outlined as well. There is no acute territorial defect, hemorrhage or midline shift. The extra-axial spaces are unremarkable. Calvarium: Intact. Maxillofacial sinuses and mastoids: Clear as visualized. CT/CT head/brain wo IV con IMPRESSION: No acute intracranial pathology.
--- NOTE | ~2023-02-13 | XR_ITS ---
EXAMINATION: XR KNEE, LEFT CLINICAL INFORMATION: Chronic nonhealing. Rule out osteomyelitis. COMPARISON: Previous x-ray November 2022 TECHNIQUE: Two views of the left knee. FINDINGS: Below knee amputation. Unfortunately the amputation site is not included in the [id number] on the lateral view. There is interval increase in soft tissue swelling and air in the soft tissues along the medial side of the amputation site. There is increasing periosteal reaction of the distal tibia. Findings are questionable for early osteomyelitis. The knee joint is unremarkable. XR/XR knee LT 2V IMPRESSION: Incomplete exam. Increasing soft tissue swelling and air in soft tissues along the medial amputation site. Interval increase in periosteal reaction of the tibia at the amputation site questionable for early osteomyelitis.
--- NOTE | ~2023-02-13 | CT_ITS ---
EXAMINATION: CT CHEST WITHOUT CONTRAST CLINICAL INFORMATION: Hemoptysis COMPARISON: Previous chest x-rays most recent from yesterday and chest CT a 02/14/2023 TECHNIQUE: Multidetector volumetric CT imaging of the chest was done. Axial MIP volume rendering provided. Sagittal and coronal reformatted images were obtained. This CT examination was performed using dose optimization techniques as appropriate, variously including the following: *Automated exposure control *Adjustment of mA and/or kV according to patient size (this includes techniques or standardized protocols for targeted exams where dose is matched to indication/reason for exam; i.e. extremities or head) *Use of iterative reconstruction technique DLP: 312 mGy-cm FINDINGS: LUNGS: There are multiple new groundglass attenuation and denser semisolid nodular opacities seen in the lungs. Largest groundglass attenuation nodular opacity measures 2 cm in the left upper lobe axial image 18 series 4. There is a peripheral solid nodular opacity in the left lower lobe measuring 2 x 2.5 cm axial image 36 series 4 that is similar-appearing to previous exam. There is new dense consolidation in the left lower lobe with some air bronchograms. There is surrounding increased interstitial markings and groundglass attenuation. Differential would include infection and pulmonary hemorrhage. Focal appearance with sharp margins makes pulmonary edema less likely. There is compressive atelectasis of the right lower lobe from the pleural effusion. MEDIASTINUM: Shotty mediastinal lymphadenopathy. No enlarged lymph nodes. Right subclavian line with tip projecting over the SVC. Enlarged heart. No pericardial effusion. Mild coronary artery calcification and coronary artery stent. CORONARY ARTERY CALCIFICATION: Mild PLEURA: There are bilateral pleural effusions, large on the right and moderate on the left. These do not appear appreciably changed from previous exam. AXILLA: Diffuse subcutaneous edema. No chest wall mass or enlarged axillary lymph nodes. UPPER ABDOMEN: Small amount of ascites. OSSEOUS STRUCTURES: Left anterior second and third rib fractures. CT/CT chest wo IV con IMPRESSION: Interval increase in groundglass attenuation and semisolid nodular opacities, largest in the left lower lobe measuring 2 x 2.5 cm. This probably represents pneumonia/infectious or inflammatory process as it is increasing in short time interval from 02/14/2023 exam. Covid infection should be excluded. New large area of mixed consolidation and groundglass attenuation and increased interstitial markings in the left lower lobe. Pneumonia, in particular aspiration pneumonia, and in the right clinical setting, pulmonary hemorrhage should be considered. Focal appearance makes asymmetric distribution of pulmonary edema less likely. Compressive atelectasis of the right lower lobe from the right pleural effusion. Bilateral pleural effusions, large on the right and moderate on the left, not appreciably changed. Acute left anterior second and third rib fractures. Trace ascites. Diffuse subcutaneous edema/anasarca. Fleischner guidelines were followed. Findings will be communicated by the [place] work flow appraiser.
--- NOTE | ~2023-02-13 | CT_ITS ---
EXAMINATION: CT ABDOMEN AND PELVIS WITH CONTRAST CLINICAL INFORMATION: Abdominal pain. COMPARISON: 11/26/2022 TECHNIQUE: Multidetector volumetric images were obtained from the superior aspect of the liver through the pubic symphysis following administration 85 mL of Omnipaque 350 intravenous contrast. Sagittal and coronal reformatted images were obtained on the technologist's workstation. Oral contrast: No This CT examination was performed using dose optimization techniques as appropriate, variously including the following: *Automated exposure control *Adjustment of mA and/or kV according to patient size (this includes techniques or standardized protocols for targeted exams where dose is matched to indication/reason for exam; i.e. extremities or head) *Use of iterative reconstruction technique DLP: 817.36 mGy-cm FINDINGS: LUNG BASES: There are partially imaged bilateral pleural effusions with associated bibasilar consolidation. LIVER, GALLBLADDER, AND BILIARY TREE: The liver is slightly irregular in contour. No focal liver lesions are seen. There is no intrahepatic biliary duct dilatation. The gallbladder is unremarkable with no evidence of radiopaque gallstones, gallbladder wall thickening, or obvious pericholecystic inflammatory changes. PANCREAS: Unremarkable. SPLEEN: The spleen is enlarged measuring up to 16 cm. ADRENAL GLANDS: There is a 1.4 cm left adrenal nodule. KIDNEYS AND URETERS: The kidneys are normal in size, shape, and attenuation. No hydronephrosis, hydroureter, or calculi seen. No perinephric stranding. Renal vascular calcifications are noted. BLADDER: Decompressed with a Griffin catheter in place. GASTROINTESTINAL TRACT: The small and large bowel are unremarkable. There is retained stool. The appendix is unremarkable. A gastric tube is well-positioned in the stomach. ABDOMINAL WALL: There is soft tissue anasarca. LYMPH NODES: Normal. VASCULAR: There is moderate atherosclerotic plaque of the abdominal aorta and proximal branches PELVIC VISCERA: The uterus and adnexal regions are unremarkable. There is a small amount of free fluid within the pelvis. There is also a small amount of free fluid within the upper abdomen along the liver and spleen. OSSEOUS STRUCTURES: Unremarkable. CT/CT abdomen pelvis w IV con IMPRESSION: 1. Bilateral pleural effusions with bibasilar consolidation possibly a combination of atelectasis and infiltrate. 2. Irregular liver suggests hepatocellular disease/cirrhosis. There is associated splenomegaly, mild ascites and soft tissue anasarca. 3. Atherosclerotic plaque of the aorta as well as renal vascular calcification. No evidence for acute intra-abdominal process. Fleischner guidelines were followed.
--- NOTE | ~2023-02-13 | CT_ITS ---
EXAMINATION: CT HEAD WITHOUT CONTRAST CLINICAL INFORMATION: Acute mental status change COMPARISON: Previous head CT most recent 02/14/2023 and brain MRI 02/15/2023 TECHNIQUE: Contiguous axial imaging was performed from the skull base to vertex without intravenous administration of contrast. This CT examination was performed using dose optimization techniques as appropriate, variously including the following: *Automated exposure control *Adjustment of mA and/or kV according to patient size (this includes techniques or standardized protocols for targeted exams where dose is matched to indication/reason for exam; i.e. extremities or head) *Use of iterative reconstruction technique DLP: 803 mGy-cm FINDINGS: Exam is limited due to motion artifact. There is no evidence of an extra-axial collection. There is no evidence of intracranial or extra-axial hemorrhage. The ventricles and extra-axial CSF spaces are appropriate. There is mild nonspecific periventricular white matter disease. No mass, mass effect or infarct. No acute bone abnormality seen. Mild soft tissue opacification of the right mastoid air cells. CT/CT head/brain wo IV con IMPRESSION: Limited exam due to motion artifact. No acute findings seen.
[2023-02-13 18:28] VITALS: BP 133/79; PULSE 100; RESP 18; TEMP 36.7; O2SAT 98; BMI 26.6
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
--- NOTE | 2023-02-13 18:32 | ECG_ITS ---
Test Reason : CHEST PAIN Blood Pressure : / mmHG Vent. Rate : 099 BPM Atrial Rate : 099 BPM P-R Int : 144 ms QRS Dur : 082 ms QT Int : 376 ms P-R-T Axes : 072 078 107 degrees QTc Int : 482 ms Normal sinus rhythm Low voltage QRS Cannot rule out Anterior infarct (cited on or before 26-JAN-2023) Abnormal ECG When compared with ECG of 26-JAN-2023 15:39, Questionable change in QRS axis Referred By: Maria Elena Phillips Electronically Signed By:JARRED BARRETO
[2023-02-13 20:13] LABS: Eosinophils Absolute Auto 0.1 X10*3/uL (0.0-0.4); Eosinophils Percent Auto 1.6 % (0-4); Hemoglobin 9.8 g/dl (12.0-16.0); Imm Gran Abs Auto 0.03 X10*3/uL (0.00-0.03); Imm Gran Pct Auto 0.5 % (0.0-0.4); MANUAL DIFF FLAG SCAN; SCAN SMEAR FLAG 1
[2023-02-13 20:15] LABS: Basophils Absolute Auto 0.1 X10*3/uL (0.0-0.2); Basophils Percent Auto 1.3 % (0-2); Hematocrit 35.1 % (37.0-47.0); Lymphocytes Absolute Auto 0.7 X10*3/uL (1.2-4.9); Lymphocytes Percent Auto 11.7 % (20-40); Mean Corpuscular HGB Conc 27.9 g/dl (31.0-35.0); Mean Corpuscular Hemoglobin 19.1 pg (27.0-33.0); Mean Corpuscular Volume 68.4 fL (80.0-98.0); Monocytes Absolute Auto 0.4 X10*3/uL (0.1-1.2); NRBC Pct Auto 0.5 /100WBC (0.0-0.2); Neutrophils Absolute Auto 4.3 x10*3/uL (2.0-8.3); Neutrophils Percent Auto 77.9 % (45-73); PLT CLUMP 1; Red Blood Count 5.13 X10*6/uL (4.20-5.50); Red Cell Distribution Width 22.7 % (11.0-16.0)
[2023-02-13 20:20] LABS: INTERNATIONAL NORM RATIO 1.3 (0.9-1.1); Prothrombin Time 16.3 SEC (11.1-13.3)
[2023-02-13 20:28] LABS: Lactic Acid 2.8 mmol/L (0.5-2.0)
[2023-02-13 20:32] LABS: B Type Natriuretic Peptide 3603 pg/mL (<100)
[2023-02-13 20:34] LABS: Alanine Aminotransferase 11 U/L (0-31); Albumin Level 3.5 g/dL (3.5-5.0); Alkaline Phosphatase 97 U/L (39-117); Anion Gap 17 (12-20); Aspartate Amino Transferase 22 U/L (5-31); Bilirubin Total 1.5 mg/dL (0.0-1.0); Blood Urea Nitrogen 28 mg/dL (9-16); Calcium 9.2 mg/dL (8.4-10.2); Carbon Dioxide 22 mmol/L (22-29); Chloride 101 mmol/L (96-108); Creatinine Clr Calc Pharmacy 30.9; Estimated Glomerular Filt Rate 26; Glucose Random 349 mg/dL (60-115); PLT ABN DIST 1; Potassium 4.9 mmol/L (3.3-5.1); Sodium 135 mmol/L (135-145); Total Protein 6.7 g/dL (6.5-8.0)
[2023-02-13 20:35] LABS: White Blood Count 5.6 X10*3/uL (4.8-10.8)
[2023-02-13 20:36] LABS: Platelet Count 86 X10*3/uL (160-400); SLIDE REVIEW VERIFIED
[2023-02-13 21:15] LABS: Troponin-I High Sensitivity 18.2 ng/L (<3.5-17.0)
[2023-02-13] MEDS: Furosemide 100 MG/10 ML VIAL 80 MG IVPUSH (21:24)
[2023-02-13] MEDS: cefTRIAXone sodium 2 GM in 0.9 % Sodium Chloride 50 ML IV (21:24)
[2023-02-13] MEDS: 0.9 % Sodium Chloride 500 ML 999 ML IV (21:24)
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
[2023-02-13 21:30] VITALS: RESP 23; O2SAT 96
--- NOTE | 2023-02-13 21:30 | MHC.EDTECH ---
patient stated to tech and nurse that she needed to pee. patient explained that she wanted a purewick. tech left the room to get a purewick.
--- NOTE | 2023-02-13 21:40 | MHC.EDTECH ---
tech brought in purewick to use with the patient. patient was sitting in the bed whining about unknown discomfort. tech started to set up with purewick while the patient was in bed.
--- NOTE | 2023-02-13 21:50 | MHC.EDTECH ---
Tech continued to talk to patient about putting the purewick on. patient started to yell out help me multiple times. Staff attempted to ask patient what they needed help with and patient continued to yell help me . At this point staff walked to the nurse to let the nurse know about these events with the patient. The staff told the nurse that the monitor at the nurses station showed the patient in a cooper rhythm at 26BPM. At this time, the nurse and tech walked into the room and saw the patient in distress. Tech started CPR and Nurse called a code blue.
[2023-02-13 22:10] LABS: Glucose, Whole Blood 301 mg/dL (60-115)
[2023-02-13 22:10] LABS: Reflex Lactate? Lactic Acid Added
[2023-02-13] MEDS: Rocuronium Bromide 50 MG/5 ML VIAL 100 MG IVPUSH (22:35)
--- NOTE | 2023-02-13 22:53 | PC.NURSE ---
Instrumentation Tech went in to put a purewick on because she needed to void. Patient wouldn't let her so she came to tell me. She was going to have another tech try. She noticed she was Bradycardic so I went running in to check on her heart rate was in the 30's and she was blue called a code at 2155. Compressions started. PEA, Narcan given. Respiratory started bagging patient. POC-301, Epi and bicarb given. Rosc acheived at 2201. Bp-195/113 hr 145 EKG done at 2203. then transferred to room 4.
[2023-02-13 23:13] LABS: ABG Base Excess -9.5 mmol/L; ABG HCO3 18 mmol/L (22-26); ABG pCO2 45 mmHg (32-45); ABG pO2 130 mmHg (83-108)
[2023-02-13 23:14] VITALS: BP 143/102; PULSE 115; RESP 18; O2SAT 97
[2023-02-13] MEDS: propofoL 1,000 MG/100 ML VIAL 12.25 MG IVCONT (23:14)
[2023-02-13] MEDS: Metoprolol Tartrate 5 MG/5 ML VIAL IVPUSH (23:21)
[2023-02-13 23:23] VITALS: O2SAT 99
[2023-02-13 23:24] VITALS: BP 143/102; PULSE 118; O2SAT 96
[2023-02-13 23:39] LABS: Appearance Urine Clear; Color Urine Yellow; Glucose Urine UA 250 mg/dL (Negative); Leukocyte Esterase Urine Trace (Negative); Nitrite Urine Negative (Negative); PH 5.5 (5.0-9.0); UMIC TRIGGER UACC YES; Urine Blood Small (1+) (Negative); Urine Ketones Negative (Negative); Urine Protein 100 (2+) mg/dL (Neg-Trace)
[2023-02-13 23:43] LABS: Eosinophils Percent Auto 0.7 % (0-4); Mean Corpuscular Volume 70.1 fL (80.0-98.0); NRBC Pct Auto 0.9 /100WBC (0.0-0.2); PLT ABN DIST 1; SCAN SMEAR FLAG 1
[2023-02-13 23:45] LABS: Basophils Absolute Auto 0.1 X10*3/uL (0.0-0.2); Basophils Percent Auto 0.5 % (0-2); Eosinophils Absolute Auto 0.1 X10*3/uL (0.0-0.4); Hemoglobin 10.4 g/dl (12.0-16.0); Imm Gran Abs Auto 0.19 X10*3/uL (0.00-0.03); Imm Gran Pct Auto 1.2 % (0.0-0.4); Lymphocytes Absolute Auto 1.4 X10*3/uL (1.2-4.9); Mean Corpuscular HGB Conc 27.4 g/dl (31.0-35.0); Mean Corpuscular Hemoglobin 19.2 pg (27.0-33.0); Monocytes Absolute Auto 0.8 X10*3/uL (0.1-1.2); Monocytes Percent Auto 5.2 % (2-11); Neutrophils Absolute Auto 13.4 x10*3/uL (2.0-8.3); Neutrophils Percent Auto 83.4 % (45-73); PLT CLUMP 1; Red Blood Count 5.42 X10*6/uL (4.20-5.50)
--- NOTE | 2023-02-13 23:46 | P.HPCC_ITS ---
History of Present Illness Date of Service: 02/13/23 Attending physician on admission: Mary Ann Chief Complaint: Acute Resp Failure, Cardiac Arrest, CHF, ENdocarditis HPI: ?52-year-old female with underlying history of asthma, COPD not on home O2, diabetes, multiple foot infections including 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, right ureteral stone and pyelonephritis, coronary artery disease status post LAD stent, peripheral vascular disease, hypertension, paroxysmal atrial fibrillation on blood thinners, community-acquired pneumonia and septic emboli who has been admitted to this hospital and other local hospitals several times but always leaves AMA Reportedly patient was recently admitted and discharged [facility] place from which she left AMA yesterday, according to family members that talk to the ER provider, it was reported the patient was diagnosed with endocarditis and had been treated with IV antibiotics but subsequently given her desire to leave AMA, was discharged with oral antibiotics, she is supposed to be on blood thinners but has not been taking it. Patient presented to this hospital with reports of having significant redness and swelling of both legs but primarily the left lower extremity and reporting some chest discomfort for but no shortness of breath.? Initial workup in the emergency room, revealed no white count, does show increased renal indices with creatinine of 1.9, vital signs had been stable.? The patient had been the ear for about 3 hours and is reported that suddenly some of the ER nursing aides noted the patient was yelling and screaming for help and suddenly she became bradycardic and suffered an cardiac arrest, full CPR was done as well as med administration obtaining full ROSC at 10 minutes.? The patient was then paralyzed with rocuronium but no sedatives were given. Patient had been intubated and at that time were called for admission, upon seeing the patient, it was eminent that she seemed to be awake for she had people are reaction but appear to be paralyze and her vital signs were corre lating with possibility of consciousness as she was significantly tachycardic and hypertensive, propofol ordered, a central line was placed by the ED physician the patient was transfer subsequently to the ICU for further care. ? ROS:? Unable to obtain ? Past Medical History:? As above ? Past Surgical History: ? Left BKA Cardiac stent ? Family history:? Mother insisted history of coronary artery disease and CABG ? Social History:? Patient is , lives in an apartment, has a 20 pack year history of tobacco consumption , unknown if it is still smoking.? No alcohol co nsumption, there is a long history of substance abuse with opioids. ? CODE STATUS: FULL CODE ? Allergies: NKDA ? Home Medications: See Med Rec ? PHYSICAL EXAM: VS: ?170/123, 160, 18, 92% on AC 18, 350, 5, 80% General:? Sedated, intubated. Skin:? Right lower extremity shows erythema without warmth to touch throughout the mid tibia down words.? Left lower extremity BKA with dehiscent wound and no material as well as surrounding area of erythema, but no hardness to touch, right lateral Achillis tendon area has a 2 x 3 cm ulcer with minimal drainage, no foul smell, the remainder of the skin shows no lesions, ulcers.? There is slight clubbing of the finger nails, 1+ pitting edema up to mid tibia of the right lower extremity. HEENT:? Head is normocephalic, atraumatic, pupils equal 4 mm bilaterally minimally reactive.? Buccal mucosa is dry, Neck is thick without lymph adenopathy.? Right CVL in place with clean, dry, intact surroundings. Cardiac:? Tachycardic 160 beats per minute, clear S1, S2 Na possible S3 noted at the left lower sternal border. Pulmonary: ?Coarse bilateral lung sounds throughout with crackles at both bases right more than left, no rhonchi, minimal wheezing. Abdomen:? Protuberant, positive bowel sounds in all 4 quadrants.? Soft, nontender, no rebound or guarding.? Musculoskeletal:? Skin changes of the lower extremities as above noted.? Othe rwise bilateral upper extremity and right lower extremity passive range of motion at the major joints showed no cogwheeling, no crepitus. Neurologic:? As above, unable to further assess Vascular:? 2+ pulses upper extremities and trace Doppler dorsalis pedis and posterior tibial pulse of the right lower extremity. ?Less than 2nd capillary refill of the bilateral upper extremity fingers, right lower extremity capillary refill of the toes 3 seconds ? SIGNIFICANT LABORATORY DATA:? As above, otherwise [place] [address], H&H of 10.4 and 38.0 respectively, MCV 70, platelets 135. ?ABG shows pH of 7.2, pCO2 45, PO2 130, HC03 of 18.? Sodium 135, potassium 4.7, chloride 101, carbon dioxide 19, BUN 29, creatinine 2.13, anion gap 20, random glucose 472, lactic acid went up from 2.82 6.5 after the code.? BNP 30 603, albumin 3.3. ? REVIEW OF IMAGES: ?As above otherwise currently pending CT of the head, chest, abdomen pelvis ? CT /Abd /Pelvis IMPRESSION: ? 1. Bilateral pleural effusions with bibasilar consolidation possibly a combination of atelectasis and infiltrate. 2. Irregular liver suggests hepatocellular disease/cirrhosis. There is associated splenomegaly, mild ascites and soft tissue anasarca. 3. Atherosclerotic plaque of the aorta as well as renal vascular calcification. No evidence for acute intra-abdominal process. CHEST CTA IMPRESSION: 1. No evidence for pulmonary embolism. 2. Moderate right and small left pleural effusions.? 3. Bilateral lower lung field consolidation/infiltrates likely a combination of pneumonia and atelectasis.? VTE: Negative for pulmonary embolism. ? HEAD CT IMPRESSION: No acute intracranial pathology. ? LEFT L EXT US R/O DVT IMPRESSION: No DVT demonstrated in the left lower extremity. ? EKG REVIEW:? To my view this shows sinus rhythm with rate of 99 beats per minute.? There is no ST elevation, no ST depressions.? Low-voltage criteria, QTC 376 MS.? No comparison available. ? ASSESSMENT : 1. Status post cardiac arrest likely due to acute hypoxic respiratory distress due to CHF and COPD 2. Acute on chronic congestive heart failure 3. History of coronary artery disease status post stent rule out ACS 4. History of pulmonary and septic emboli rule out recurrent event 5. Questionable acute on chronic endocarditis from IV drug abuse 6. Acute COPD exacerbation 7. Illness related thrombocytosis 8. Uncontrolled diabetes mellitus type 2 9. Metabolic/lactic acidosis secondary to cardiac arrest 10. Acute kidney injury likely due to hypoperfusion 11. Hypoalbuminemia 12. Left BKA dehiscence, right lateral heel wound present on admission 13. Microcytic anemia rule out microscopic bleeding, iron deficiency 14. Reactive vs? Infectious leukocytosis 15. Bilateral pleural effusions with possibility of underlying infiltrates. 16. Liver disease not otherwise specified associated with cirrhotic changes, splenomegaly and mild ascites. ? PLAN OF CARE: The actual cause of the cardiac arrest is unknown, I do not see any evidence of hypoxia on records but given her reported agitation and screaming for help, bradycardia leading to the witness arrest, I can only assume this is related to hypoxia. Admit the patient to ICU, monitor vital signs, I's and O's closely, will adjust vent settings to AC VC plus rate of 14 to 16, 350, 5, 50% FiO2 with target O2 sat of 90-92% as the patient does have a history of COPD.? Griffin catheter to be placed.? Will start empiric antibiotics with vanc events and cefepime, order a formal echo for the morning, request records from [facility] from prior patient's hospitalizations.? Lasix every 12 hours, repeat EKG and troponin in the morning.? OG tube placement with a goal of administering aspirin and Plavix given the patient's history of coronary disease and recent cardiac arrest, if she tolerates it beta-connor and resuming her statin as well.? Will order urinalysis and urine tox screen.? Will follow-up on the results of the bl ood cultures as well as the head, chest, CT abdomen pelvis CTs particularly to rule out the possibility of pulmonary embolism, septic emboli and or abscesses.? Will place the patient on Lantus for basal coverage and further cover her with insulin sliding scale every 6 hours, repeat laboratories in the morning and avoid any other nephrotoxins, due to volume issues I will give her IV pushes of sodium bicarbonate for her total calculated bicarb deficit is 163 mEqs. Wound consult has been requested; add ferritin, iron, transferrin and TIBC; stool for occult blood study given the microcytic anemia. I do not think is necessary or beneficial to do a cooling protocol on this patient. ? BEDSIDE ECHOCARDIOGRAPHY for hemodynamic monitoring done by me: 1. Wall thickness appears normal 2. LV cavity size is normal, and LV fxn is hypokinetic, with approximated EF 40- 45%. 3. RV size looks enlarged on the parasternal and apical 4-chamber views (RV:LV cavity ratio 1.0), but looks normal on the subcostal view. 4. LA and RA seem to be . 5. AoV not assessed. 6. MV appears normal with trace MR by color patti. 7. TV appears slightly thickened with at least trace 1 + by color flow, with CWD jet measuring 2.8m/sec, or gradient of 28-30 mm. 8. IVC is large 3.2 cm and it is NOT contractile with inspiration.? Estimated CVP of 18.? 9. Although there is a small area of lucency under the tricuspid valve, I cannot define these being vegetation, a formal echo will be requested in the morning. ? GI PROPHYLAXIS: ?IV ppi DVT PROPHYLAXIS: ?Heparin subQ ? Critical care time used for critical evaluation of this patient, diagnosis, treatment and coordination of care, review her records and documentation TOTAL CRITICAL CARE TIME? 120? MIN . discussion and coordination with consultants, completely separate from any procedures performed. Patient's care was discussed in detail with .? She is aware of all the above as well as the plan of care for this patient. [facility] Past Medical History Medical History Asthma Atherosclerotic cardiovascular disease Atrial tachycardia Back pain Below-knee amputation of left lower extremity Cellulitis in diabetic foot COPD (chronic obstructive pulmonary disease) Coronary artery disease Diabetes Diabetic foot infection Essential hypertension GERD (gastroesophageal reflux disease) Hyperglycemia due to diabetes mellitus Hypertension Ischemic cardiomyopathy Osteomyelitis 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 PAD (peripheral artery disease) Septic pulmonary embolism Family History Family History Mother Hx of CABG Sister CAD (coronary artery disease) Surgical History Surgical History History of esophagogastroduodenoscopy (EGD) History of toe surgery (09/22/21) Status post below-knee amputation of left lower extremity (09/20/22) Social History Social History Household Members: Spouse Household Members Other:: 2 Housing: Apartment Do you presently have visiting nurse or other home services: Yes (twice a day) Unable to assess alcohol history related to: Refusing to respond Alcohol intake: former Patient Tobacco Use Status: Never used Tobacco Tobacco use type: Cigarette Cigarette Packs Per Day: 0.5 Cigarettes Per Day: 10.0 Years Smoked: since 8 years old Smoked in Last 30 Days: Yes e-Cigarette/Vaping Use: Never Used Second Hand Smoke Exposure: Yes Use of substances other than those prescribed or required for medical reasons: Unable to respond Substance Use Type: Painkillers Currently Displaying Signs/Symptoms of Drug Intoxication Withdrawal: No Advance Directives: Yes Advance Directives on File: Yes Advance Directives Date on File: 09/22/22 Nutrition Risks: On aspiration precautions Patient : No : No Poor oral hygiene: Yes service: No Current occupational status: disabled Meds Allergies Allergy/AdvReac Type Severity Reaction Status Date / Time Penicillins [PENICILLINS] Allergy Severe RASH Verified 02/13/23 18:33 amoxicillin [AMOXICILLIN] Allergy Intermediate HIVES Verified 02/13/23 18:33 perflutren [From Definity] AdvReac Back Pain Verified 02/13/23 18:33 Active Medications: Current Medications Dextrose (Dextrose 50 % 25 Gm/50 Ml Syringe) 25 gm IVPUSH Q15M PRN; Protocol PRN Reason: per Hypoglycemia Standing Ord. Furosemide (Furosemide 100 Mg/10 Ml Vial) 60 mg IVPUSH Q12H MÓNICA; Protocol Glucose (Glucose Gel 15 Gm Gel..Gram.) 15 gm PO Q15M PRN; Protocol PRN Reason: per Hypoglycemia Standing Ord. Heparin Sodium (Porcine) (Heparin Sodium,Porcine 5,000 Unit/Ml Vial) 5,000 unit SUBCUT Q12H MÓNICA Propofol (Diprivan) 1,000 mg in 100 mls @ 0 mls/hr IVCONT .Q0M MÓNICA; Protocol Last Admin: 02/13/23 23:14 Dose: 30 mcg/kg/min, 12.25 mls/hr Cefepime HCl 1 gm/ Sodium (Chloride) 50 mls @ 100 mls/hr IV Q12H MÓNICA Insulin Human Lispro (Insulin Lispro 100 Unit/Ml 3 Ml Vial) 0 unit SUBCUT Q6H MÓNICA; Protocol Pantoprazole Sodium (Pantoprazole Sodium 40 Mg/10 Ml Vial) 40 mg IVPUSH ONCE ONE Stop: 02/13/23 23:41 Pharmacy Consult (Consult Rx Vancomycin Dosing) 1 each MISCELLANE DAILY PRN PRN Reason: Consult order Pharmacy Consult (Consult Rx Vancomycin Dosing) 1 each MISCELLANE DAILY PRN PRN Reason: Consult order Home Medications Medication Instructions Recorded Confirmed Last Taken Type clopidogrel 75 mg tablet 75 mg PO DAILY 11/24/22 02/14/23 Unknown History nicotine 21 mg/24 hr daily 1 patch topical DAILY 11/26/22 02/14/23 Unknown History transdermal patch apixaban 5 mg tablet (Eliquis) 5 mg PO BID 01/11/23 02/14/23 Unknown History fluticasone propionate 115 2 puff inhalation BID 01/11/23 02/14/23 Unknown History mcg-salmeterol 21 mcg/actuation HFA inhaler glipizide 10 mg tablet 10 mg PO DAILY 01/11/23 02/14/23 Unknown History insulin glargine 100 unit/mL (3 20 unit subcut BID 01/11/23 02/14/23 Unknown History mL) subcutaneous pen (Lantus Solostar U-100 Insulin) Physical Exam Vital Signs: Vital Signs: Last Vital Signs Temp 98.1 F 02/13/23 18:28 Pulse 115 H 02/13/23 23:14 Resp 18 02/13/23 23:14 BP 143/102 H 02/13/23 23:14 Pulse Ox 97 02/13/23 23:14 O2 Del Method Room Air 02/13/23 21:30 FiO2 50 02/13/23 23:24 BMI result Body Mass Index 26.6 Results Labs 02/13/23 19:56 02/13/23 19:56 Labs: Laboratory Results - last 24 hr 02/13/23 02/13/23 02/13/23 19:56 19:56 19:56 MCV 68.4 L MCH 19.1 L MCHC 27.9 L RDW 22.7 H Plt Count 86 L D MPV Not Reportable Immature Gran % (Auto) 0.5 H Neut % (Auto) 77.9 H Lymph % (Auto) 11.7 L [place] % (Auto) 7.0 Eos % (Auto) 1.6 Baso % (Auto) 1.3 Lymph # (Auto) 0.7 L [place] # (Auto) 0.4 Eos # (Auto) 0.1 Baso # (Auto) 0.1 Abs Immat Gran (auto) 0.03 Absolute Neuts (auto) 4.3 Absolute Nucleated RBC 0.030 H Nucleated RBC % (auto) 0.5 H Smear Tech's Comments VERIFIED PT 16.3 H D INR 1.3 H O2 Saturation ABG pH at Pt Temp ABG pCO2 at Pt Temp ABG pO2 at Pt Temp ABG HCO3 ABG Base Excess (Actual) Anion Gap 17 Estim Creat Clear Calc 30.9 Estimated GFR 26 POC Glucose Random Glucose 349 H Lactic Acid Calcium 9.2 Total Bilirubin 1.5 H AST 22 ALT 11 Alkaline Phosphatase 97 B-Natriuretic Peptide Total Protein 6.7 Albumin 3.5 Urine Color Urine Appearance Urine pH Ur Specific [place] Urine Protein Urine Glucose (UA) Urine Ketones Urine Blood Urine Nitrite Ur Leukocyte Esterase 02/13/23 02/13/23 02/13/23 19:56 19:56 21:56 MCV MCH MCHC RDW Plt Count MPV Immature Gran % (Auto) Neut % (Auto) Lymph % (Auto) [place] % (Auto) Eos % (Auto) Baso % (Auto) Lymph # (Auto) [place] # (Auto) Eos # (Auto) Baso # (Auto) Abs Immat Gran (auto) Absolute Neuts (auto) Absolute Nucleated RBC Nucleated RBC % (auto) Smear Tech's Comments PT INR O2 Saturation ABG pH at Pt Temp ABG pCO2 at Pt Temp ABG pO2 at Pt Temp ABG HCO3 ABG Base Excess (Actual) Anion Gap Estim Creat Clear Calc Estimated GFR POC Glucose 301 H Random Glucose Lactic Acid 2.8 H* Calcium Total Bilirubin AST ALT Alkaline Phosphatase B-Natriuretic Peptide 3603 H Total Protein Albumin Urine Color Urine Appearance Urine pH Ur Specific [place] Urine Protein Urine Glucose (UA) Urine Ketones Urine Blood Urine Nitrite Ur Leukocyte Esterase 02/13/23 02/13/23 23:07 23:24 MCV MCH MCHC RDW Plt Count MPV Immature Gran % (Auto) Neut % (Auto) Lymph % (Auto) [place] % (Auto) Eos % (Auto) Baso % (Auto) Lymph # (Auto) [place] # (Auto) Eos # (Auto) Baso # (Auto) Abs Immat Gran (auto) Absolute Neuts (auto) Absolute Nucleated RBC Nucleated RBC % (auto) Smear Tech's Comments PT INR O2 Saturation 99.0 ABG pH at Pt Temp 7.20 L* ABG pCO2 at Pt Temp 45 ABG pO2 at Pt Temp 130 H ABG HCO3 18 L ABG Base Excess (Actual) -9.5 Anion Gap Estim Creat Clear Calc Estimated GFR POC Glucose Random Glucose Lactic Acid Calcium Total Bilirubin AST ALT Alkaline Phosphatase B-Natriuretic Peptide Total Protein Albumin Urine Color Yellow Urine Appearance Clear Urine pH 5.5 Ur Specific [place] 1.010 Urine Protein 100 (2+) H Urine Glucose (UA) 250 H Urine Ketones Negative Urine Blood Small (1+) H Urine Nitrite Negative Ur Leukocyte Esterase Trace H Imaging Radiologist's Impressions: Impressions Chest X-Ray 02/13/23 18:55 IMPRESSION: Increasing small bilateral pleural effusions. Venous Duplex 02/13/23 21:39 IMPRESSION: No DVT demonstrated in the left lower extremity. Chest X-Ray 02/13/23 22:45 IMPRESSION: 1. Interval placement of a left-sided central venous catheter with the tip in the region of the SVC. Endotracheal tube with its tip approximately 3.3 cm proximal to the dayne. 2. Layering right-sided pleural effusion with adjacent atelectasis, slightly more prominent when compared to the prior examination. Small, layering left-sided pleural effusion, unchanged. 3. No pneumothorax or pneumomediastinum. Assessment and Plan Time Spent With Patient Time: Total time managing care of this patient today ____ minutes.
[2023-02-13 23:47] LABS: MANUAL DIFF FLAG NO
[2023-02-13 23:50] LABS: Bacteria Urine None Seen (None Seen); UACC Culture Trigger YES
[2023-02-13] MEDS: vancomycin HCL 1,500 MG in 0.9 % Sodium Chloride 500 ML 333.33 MG IV (23:55)
[2023-02-13 23:56] VITALS: BMI 30.5
--- NOTE | 2023-02-13 23:56 | PC.NURSE ---
abx late due to patient coding
[2023-02-13 23:59] VITALS: BP 134/86; PULSE 111; RESP 18; TEMP 37.1; O2SAT 96
[2023-02-14] VITALS (32 sets, daily range): BP systolic 98–144; BP diastolic 56–90; PULSE 80–116; RESP 17–20; TEMP 34.1–37.3; O2SAT 92–100; BMI 31.2
[2023-02-14 00:01] LABS: ~Lactic Acid-LAB USE ONLY 6.5 mmol/L (0.5-2.0)
[2023-02-14] MEDS: Insulin Glargine,Hum.rec.anlog 100 UNIT/ML 10 ML VIAL 20 UNIT SUBCUT (00:04)
[2023-02-14 00:14] LABS: Platelet Count 135 X10*3/uL (160-400)
[2023-02-14 00:15] LABS: Alanine Aminotransferase 11 U/L (0-31); Albumin Level 3.3 g/dL (3.5-5.0); Alkaline Phosphatase 100 U/L (39-117); Anion Gap 20 (12-20); Aspartate Amino Transferase 15 U/L (5-31); Bilirubin Total 1.2 mg/dL (0.0-1.0); Blood Urea Nitrogen 29 mg/dL (9-16); Calcium 8.6 mg/dL (8.4-10.2); Carbon Dioxide 19 mmol/L (22-29); Chloride 101 mmol/L (96-108); Creatinine Clr Calc Pharmacy 30.9; Estimated Glomerular Filt Rate 24; Glucose Random 472 mg/dL (60-115); Potassium 4.7 mmol/L (3.3-5.1); Sodium 135 mmol/L (135-145); Total Protein 6.3 g/dL (6.5-8.0)
[2023-02-14 00:34] LABS: ABG Refer to POC result
[2023-02-14 00:52] LABS: Amphetamine Screen Urine Not Detected (Not Detect); Barbiturates, Urine Not Detected (Not Detect); Benzodiazepines Screen Urine Not Detected (Not Detect); Cannabinoid Screen Urine Not Detected (Not Detect); Cocaine Screen Urine Not Detected (Not Detect); Fentanyl, urine Not Detected (Not Detect); Opiate Screen Urine Not Detected (Not Detect); Phencyclidine Screen Urine Not Detected (Not Detect)
[2023-02-14 01:02] LABS: Troponin-I High Sensitivity 23.6 ng/L (<3.5-17.0)
[2023-02-14] MEDS: iohexoL 350 MG/ML 100 ML INFUS..BTL 85 ML IV (01:08)
--- NOTE | 2023-02-14 01:33 | PC.NURSE ---
LATE ENTRY: Assumed care of patient at 2205. - Pt post code, sinus tach on monitor. Dr. Vela placed central line on left neck, patient also has 20g IV in LFA - ICU PA requesting 5mg Lopressor be given due to elevated HR. Lopressor given through central line - Discontinued 500ml bag of fluids that were started prior to the code - Abx started - 16 micronesian temp sensing cath in with immediate 120ml output. - OG tube placed and hooked to continuous suction. Immediate output was brown chunky stomach contents - Labs drawn off central line - Patient started on Propofol 30mcg/kg to start - Patient changed and cleaned, two wounds noted. 1) unstageable quarter size wound on right foot. Cleaned and covered with foam dressing 2) unstageable 3-4 inch wound on left stump (patient has AKA). Cleaned and covered with foam dressing - Pt was brought to CT with assistance of respiratory then patient was brought to ICU without any issues
[2023-02-14 01:49] LABS: Glucose, Whole Blood 356 mg/dL (60-115)
[2023-02-14 01:49] LABS: Reflex Lactate? 2 Y
[2023-02-14] MEDS: cefEPime HCl 1 GM in 0.9 % Sodium Chloride 50 ML IV ×2 (01:51→12:33)
[2023-02-14] MEDS: Pantoprazole Sodium 40 MG/10 ML VIAL IVPUSH (01:51)
[2023-02-14] MEDS: Furosemide 100 MG/10 ML VIAL 60 MG IVPUSH ×3 (01:51→17:09)
[2023-02-14] MEDS: Insulin Lispro 100 UNIT/ML 3 ML VIAL SUBCUT ×4 (01:51→18:01)
[2023-02-14 02:47] LABS: ~Lactic Acid-LAB USE ONLY 1.9 mmol/L (0.5-2.0)
[2023-02-14] MEDS: Albuterol/Iprat 2.5/0.5MG 3 ML AMPUL.NEB INHALE ×4 (03:03→19:07)
[2023-02-14] MEDS: Sodium Bicarbonate 8.4% 50 MEQ/50 ML SYRINGE 150 MEQ IVPUSH (03:07)
[2023-02-14] MEDS: Chlorhexidine Gluc Oral Rinse 15 ML MOUTHWASH BUCCAL ×4 (03:08→20:23)
[2023-02-14] MEDS: Albumin Human 25 % 100 ML IV ×4 (03:48→09:13)
[2023-02-14] MEDS: propofoL 1,000 MG/100 ML VIAL 20.41 MG IVCONT (04:02)
[2023-02-14 05:13] LABS: VBG HCO3 32 mmol/L (22-26); VBG pCO2 44 mmHg; VBG pH 7.46 (7.32-7.43); VBG pO2 44 mmHg
[2023-02-14 05:15] LABS: Venous Blood Gas Refer to POC result
[2023-02-14 05:45] LABS: Eosinophils Percent Auto 0.1 % (0-4); Monocytes Absolute Auto 0.4 X10*3/uL (0.1-1.2); PLT ABN DIST 1; PLT CLUMP 1; Red Cell Distribution Width 21.8 % (11.0-16.0); SCAN SMEAR FLAG 1
[2023-02-14 05:47] LABS: Basophils Percent Auto 0.3 % (0-2); Hemoglobin 7.4 g/dl (12.0-16.0); Imm Gran Abs Auto 0.06 X10*3/uL (0.00-0.03); Imm Gran Pct Auto 0.8 % (0.0-0.4); Lymphocytes Absolute Auto 0.2 X10*3/uL (1.2-4.9); Lymphocytes Percent Auto 3.2 % (20-40); MANUAL DIFF FLAG SCAN; Mean Corpuscular HGB Conc 28.5 g/dl (31.0-35.0); Mean Corpuscular Hemoglobin 19.3 pg (27.0-33.0); Mean Corpuscular Volume 67.9 fL (80.0-98.0); Monocytes Percent Auto 4.7 % (2-11); NRBC Pct Auto 0.5 /100WBC (0.0-0.2); Neutrophils Absolute Auto 6.9 x10*3/uL (2.0-8.3); Neutrophils Percent Auto 90.9 % (45-73); Red Blood Count 3.83 X10*6/uL (4.20-5.50)
[2023-02-14 05:49] LABS: Platelet Count 72 X10*3/uL (160-400); White Blood Count 7.6 X10*3/uL (4.8-10.8)
[2023-02-14 05:56] LABS: Glucose, Whole Blood 333 mg/dL (60-115)
[2023-02-14 06:00] LABS: Alanine Aminotransferase 9 U/L (0-31); Alkaline Phosphatase 71 U/L (39-117); Anion Gap 14 (12-20); Aspartate Amino Transferase 10 U/L (5-31); Bilirubin Total 1.1 mg/dL (0.0-1.0); Blood Urea Nitrogen 30 mg/dL (9-16); Calcium 8.5 mg/dL (8.4-10.2); Carbon Dioxide 28 mmol/L (22-29); Chloride 102 mmol/L (96-108); Creatinine Clr Calc Pharmacy 31.5; Estimated Glomerular Filt Rate 25; Glucose Random 361 mg/dL (60-115); Potassium 4.1 mmol/L (3.3-5.1); Sodium 140 mmol/L (135-145); Total Protein 5.1 g/dL (6.5-8.0)
--- NOTE | 2023-02-14 06:00 | ECG_ITS ---
Test Reason : cp Blood Pressure : / mmHG Vent. Rate : 084 BPM Atrial Rate : 084 BPM P-R Int : 154 ms QRS Dur : 080 ms QT Int : 434 ms P-R-T Axes : 081 076 104 degrees QTc Int : 512 ms Normal sinus rhythm Low voltage QRS Cannot rule out Anterior infarct (cited on or before 26-JAN-2023) Prolonged QT Abnormal ECG When compared with ECG of 13-FEB-2023 22:03, Vent. rate has decreased BY 61 BPM Questionable change in initial forces of Anteroseptal leads Referred By: Mu Johnson Electronically Signed By:JARRED BARRETO
[2023-02-14 06:10] LABS: Troponin-I High Sensitivity 102.4 ng/L (<3.5-17.0)
[2023-02-14 06:16] LABS: SLIDE REVIEW VERIFIED
--- NOTE | 2023-02-14 07:00 | CA_ITS ---
Transthoracic Echocardiogram Patient (Last, First, Middle): Keisha Chadwick, Gender: Female Date of : 1970 Age: 52 Procedure Date: 02/14/2023 Procedure Type: Transthoracic Echocardiogram Location: ICU Height: 160.02 cm Weight: 79.38 kg BSA: 1.83 m2 Heart Rate: bpm BP: 107 / 61 mmHg Oxygen Equipment Preparer: Referring MD: Mu CARTAGENA Bakeshop Cleaner: Kurtis Cortez MD Symptoms: Cardiac arrest Study Quality: Adequate w Contrast ECG Rhythm: Sinus Conclusions: - 1. Severe LV systolic dysfunction with regional wall motion abnormality consistent with ischemic cardiomyopathy with LVEF of 10-15% 2. Mamm-er-acbpsqoc tricuspid regurgitation with difficult to assess right ventricular systolic pressure Findings Procedure Information Contrast agent, definity, is being given per protocol without apparent complications. Left Ventricle The visually estimated ejection fraction is between 10-15%. Spectral Doppler is indicative of an impaired relaxation filling pattern. Elevated filling pressures. Wall Motion Rest Echo Findings The basal inferior, mid inferior, mid anterolateral, and mid inferolateral segments are hypokinetic. The entire apex, anterior wall, entire septum, the basal anterolateral, and basal inferolateral segments are akinetic. Right Ventricle Mildly increased right ventricular cavity size. There is normal right ventricular systolic function. Venous Patient on positive pressure ventilation and IVC is dilated with blunted respiratory response. Difficult to estimate right atrial pressures Prior Study Comparison No significant change compared to prior study dated: 01/27/2023. Measurements 2D Linear Measurements IVSd: 0.95 0.6-0.9/0.6-1.0 cm LVIDd: 5.21 3.9-5.3/4.2-5.9 cm LVIDd Index: 2.85 2.4-3.2/2.2-3.1 cm/m2 LVIDs: 4.74 2.0-3.6 cm LVPWd: 1.16 0.7-1.1 cm LV Mass: 260.33 67-162/88-224 g LV Mass Index: 142.26 43-95/49-115 g/m2 LVOT Diam: 2.00 3.0+(-)1.3 cm 2D Systolic Function EF 4C: 15.00 >55% EF 2C: 12.50 >55% EF BiP: 12.70 >55% Mitral Valve MV Pk E: 0.68 MV PK A: 0.94 MV Decel Time: 101.00 E/A: 0.70 E'Lateral: 4.46 E'Medial: 3.05 E/E' Med: 22.30 E/E' Lat: 15.30 PHT: 30.00 MVA PHT: 7.33 Decel [place]: 6.71 LVOT LVOT Pk Bryant: 0.57 LVOT Mn Bryant: 0.38 LVOT VTI: 0.09 LVOT Pk Grad: 1.00 LVOT Mn Grad: 1.00 LVOT Diam: 2.00 LVOT Area: 3.14 Diastolic Function MV Pk E: 0.68 MV Pk A: 0.94 E/A: 0.70 E'Medial: 3.05 E/E' Med: 22.30 E' Laterial: 4.46 E/E' Lat: 15.30 Tricuspid Valve TR Pk Bryant: 2.60 TR Pk Grad: 27.00 Updated in Other Vendor System with Status of Final Kurtis Cortez MD electronically signed on 02/14/2023 1:46:30 PM with status of Final
[2023-02-14 07:04] LABS: Unsaturated Iron Binding 337 ug/dL
--- NOTE | 2023-02-14 07:09 | PC.NURSE ---
Pt arrived approx at 0130. Intubated and sedated. ETT 7.5, 25 at lip. ACVC+ settings. Inspiratory wheezing throughout- PA aware, sched duonebs ordered. No inline secretions. per PA O2 goal 92-94%- O2 titrated as needed. Absent cough and gag, absent pain response. Does not open eyes or follow commands. Flaccid UEs, weakly moves BL LE spont. Pupils 5mm equal/ reactive. Propofol gtt titrated per protocol. OG tube to intermitted low suction per order, small amount of brown output in line. Hypoactive BS. No BM overnight. POC Q6H, covered with sliding scale. 150meq bicarb given as ordered. Sched 60mg IVP lasix given with good effect. Griffin in place, draining pale yellow urine. TLC L IJ. 20 L hand placed. NS on tele. Absent R pedal pulse initially- extremity warmed with blankets, then pedal pulse obtained with doppler. Dim BL radial pulses. BL UE scattered bruising. Healing abrasions to R knee- AVIS. L BKA dehisced surgical site- foam applied, picture taken/documented. R lateral foot ulcer- foam and heelboot applied, picture taken/documented.
--- NOTE | 2023-02-14 07:27 | PHA.MEDREC ---
Pharmacy Consult ? Medication Reconciliation Pharmacy has completed the medication reconciliation.
--- NOTE | 2023-02-14 07:38 | HO.SKINPHOTO ---
Location: L BKA Category: Dehisced surgical site Stage: Length: 8cm Width: 4cm Depth: cm Location: R lateral foot Category: Ulcer Stage: Length: 1cm Width: 2cm Depth: cm Location: Category: Stage: Length: Width: Depth: cm Location: Category: Stage: Length: Width: Depth: cm Location: Category: Stage: Length: Width: Depth: cm Location: Category: Stage: Length: Width: Depth: cm
[2023-02-14] MEDS: Heparin Sodium,Porcine 5,000 UNIT/ML VIAL 5000 UNIT SUBCUT ×2 (08:00→20:22)
[2023-02-14] MEDS: methylPREDNISolone Sod Succ 125 MG/2 ML VIAL 60 MG IVPUSH ×2 (08:01→17:09)
[2023-02-14] MEDS: Clopidogrel Bisulfate 75 MG TABLET PO (08:02)
[2023-02-14] MEDS: Aspirin 81 MG TAB.CHEW PO (08:02)
--- NOTE | 2023-02-14 08:35 | P.CONWO_ITS ---
History of Present Illness Data of Consult Service Date: 02/14/23 Requesting physician: Mu Johnson Primary Care Provider: Unknown Physician HPI Reason for consult: left bka dehisence [id number]: 52-year-old female known to the wound clinic for long-standing leg wounds, smoking and diabetes. She underwent left BKA back in November. She was having falls at that time. She declined rehab stay following the BKA. Her BKA site dehisced and we were seeing her in December to try to get this fixed for her. Documentation suggests in the last few days or so she has been seen at multiple local hospitals and has left AMA with bacteremia. She is now intubated for hypoxemia in the ICU. We are asked to opine regarding left BKA dehiscence. It has been 2-3 months since the surgery. 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 PAD (peripheral artery disease) Septic pulmonary embolism Family History Mother Hx of CABG Sister CAD (coronary artery disease) Surgical History History of esophagogastroduodenoscopy (EGD) History of toe surgery (09/22/21) Status post below-knee amputation of left lower extremity (09/20/22) Social History Household Members: Spouse Household Members Other:: 2 Housing: Apartment Do you presently have visiting nurse or other home services: Yes (twice a day) Unable to assess alcohol history related to: Refusing to respond Alcohol intake: former Patient Tobacco Use Status: Never used Tobacco Tobacco use type: Cigarette Cigarette Packs Per Day: 0.5 Cigarettes Per Day: 10.0 Years Smoked: since 8 years old Smoked in Last 30 Days: Yes e-Cigarette/Vaping Use: Never Used Second Hand Smoke Exposure: Yes Use of substances other than those prescribed or required for medical reasons: Unable to respond Substance Use Type: Painkillers Advance Directives: Yes Advance Directives on File: Yes Advance Directives Date on File: 09/22/22 Nutrition Risks: On aspiration precautions Patient : No : No Poor oral hygiene: Yes service: No Current occupational status: disabled Meds Allergies Allergy/AdvReac Type Severity Reaction Status Date / Time Penicillins [PENICILLINS] Allergy Severe RASH Verified 02/13/23 18:33 amoxicillin [AMOXICILLIN] Allergy Intermediate HIVES Verified 02/13/23 18:33 perflutren [From Definity] AdvReac Back Pain Verified 02/13/23 18:33 Active Medications: Current Medications Albuterol Sulfate (Albuterol Sulfate (0.083%) 2.5 Mg/3 Ml Vial.Neb) 2.5 mg INHALE Q2H PRN PRN Reason: Wheezing Albuterol/Ipratropium (Albuterol/Iprat 2.5/0.5mg 3 Ml Ampul.Neb) 3 ml INHALE Q6H [facility] [place] Last Admin: 02/14/23 07:51 Dose: 3 ml Aspirin (Aspirin 81 Mg Tab.Chew) 81 mg PO DAILY [facility] Last Admin: 02/14/23 08:02 Dose: 81 mg Atorvastatin Calcium (Atorvastatin Calcium 80 Mg Tablet) 80 mg PO BEDTIME [facility] [place] Chlorhexidine Gluconate (Chlorhexidine Gluc Oral Rinse 15 Ml Mouthwash) 15 ml BUCCAL TID [facility] [place] Last Admin: 02/14/23 08:02 Dose: 15 ml Clopidogrel Bisulfate (Clopidogrel Bisulfate 75 Mg Tablet) 75 mg PO DAILY [facility] [place] Last Admin: 02/14/23 08:02 Dose: 75 mg Dextrose (Dextrose 50 % 25 Gm/50 Ml Syringe) 25 gm IVPUSH Q15M PRN; Protocol PRN Reason: per Hypoglycemia Standing Ord. Furosemide (Furosemide 100 Mg/10 Ml Vial) 60 mg IVPUSH BID@0800,1700 [facility] [place] [place]; Protocol Last Admin: 02/14/23 08:01 Dose: 60 mg Glucose (Glucose Gel 15 Gm Gel..Gram.) 15 gm PO Q15M PRN; Protocol PRN Reason: per Hypoglycemia Standing Ord. Heparin Sodium (Porcine) (Heparin Sodium,Porcine 5,000 Unit/Ml Vial) 5,000 unit SUBCUT Q12H [facility] [place] Last Admin: 02/14/23 08:00 Dose: 5,000 unit Propofol (Diprivan) 1,000 mg in 100 mls @ 0 mls/hr IVCONT .Q0M [facility] [place]; Protocol Last Titration: 02/14/23 05:32 Dose: 40 mcg/kg/min, 16.33 mls/hr Cefepime HCl 1 gm/ Sodium (Chloride) 50 mls @ 100 mls/hr IV Q12H [facility] [place] Last Infusion: 02/14/23 02:30 Dose: Infused Vancomycin HCl 750 mg/ Sodium (Chloride) 265 mls @ 265 mls/hr IV Q24H MÓNICA Albumin Human (Kedbumin 25 %) 100 mls @ 100 mls/hr IV Q1H [facility] [place] Stop: 02/14/23 09:29 Last Admin: 02/14/23 07:52 Dose: 100 mls/hr Albumin Human (Kedbumin 25 %) 100 mls @ 100 mls/hr IV Q1H [facility] [place] Stop: 02/14/23 09:29 Insulin Human Lispro (Insulin Lispro 100 Unit/Ml 3 Ml Vial) 0 unit SUBCUT Q6H [facility] [place]; Protocol Last Admin: 02/14/23 05:57 Dose: 8 unit Methylprednisolone Sodium Succinate (Methylprednisolone Sod Succ 125 Mg/2 Ml Vial) 60 mg IVPUSH Q8H [facility] [place] Last Admin: 02/14/23 08:01 Dose: 60 mg Pharmacy Consult (Consult Rx Vancomycin Dosing) 1 each MISCELLANE DAILY PRN PRN Reason: Consult order Home Medications Medication Instructions Recorded Confirmed Last Taken Type clopidogrel 75 mg tablet 75 mg PO DAILY 11/24/22 02/14/23 Unknown History nicotine 21 mg/24 hr daily 1 patch topical DAILY 11/26/22 02/14/23 Unknown History transdermal patch apixaban 5 mg tablet (Eliquis) 5 mg PO BID 01/11/23 02/14/23 Unknown History fluticasone propionate 115 2 puff inhalation BID 01/11/23 02/14/23 Unknown History mcg-salmeterol 21 mcg/actuation HFA inhaler glipizide 10 mg tablet 10 mg PO DAILY 01/11/23 02/14/23 Unknown History insulin glargine 100 unit/mL (3 20 unit subcut BID 01/11/23 02/14/23 Unknown History mL) subcutaneous pen (Lantus Solostar U-100 Insulin) Physical Exam Vital Signs and Narrative: Vital Signs: Last Vital Signs Temp 97.3 F 02/14/23 08:00 Pulse 81 02/14/23 08:01 Resp 18 02/14/23 08:01 BP 107/63 02/14/23 08:00 Pulse Ox 97 02/14/23 08:00 O2 Del Method Mechanical Ventil ation 02/14/23 08:00 FiO2 30 02/14/23 08:00 BMI result Body Mass Index 31.2 The wound is approximately 4 x 3 cm and dehiscence on the more medial distal aspect of the residual limb. Wound bed is laden with nonviable slough and would benefit from bedside debridement when her condition is stable. This could also be deferred to outpatient. There is surrounding redness of the periwound but no edema. No streaking, not particularly warm to the touch. The redness looks to be receding as result of consistent IV antibiotic use by cob sawyer team. Results Labs 02/14/23 05:03 02/14/23 05:03 Labs: Laboratory Results - last 24 hr 02/13/23 02/13/23 02/13/23 19:56 19:56 19:56 MCV 68.4 L MCH 19.1 L MCHC 27.9 L RDW 22.7 H Plt Count 86 L D MPV Not Reportable Immature Gran % (Auto) 0.5 H Neut % (Auto) 77.9 H Lymph % (Auto) 11.7 L [place] % (Auto) 7.0 Eos % (Auto) 1.6 Baso % (Auto) 1.3 Lymph # (Auto) 0.7 L [place] # (Auto) 0.4 Eos # (Auto) 0.1 Baso # (Auto) 0.1 Abs Immat Gran (auto) 0.03 Absolute Neuts (auto) 4.3 Absolute Nucleated RBC 0.030 H Nucleated RBC % (auto) 0.5 H Smear Tech's Comments VERIFIED PT 16.3 H D INR 1.3 H O2 Saturation ABG pH at Pt Temp ABG pCO2 at Pt Temp ABG pO2 at Pt Temp ABG HCO3 ABG Base Excess (Actual) VBG pH VBG pCO2 VBG pO2 VBG HCO3 VBG O2 Saturation VBG Base Excess Anion Gap 17 Estim Creat Clear Calc 30.9 Estimated GFR 26 POC Glucose Random Glucose 349 H Lactic Acid Lactic Acid F/U @ 2Hr Lactic Acid F/U @ 4Hr Calcium 9.2 Iron TIBC % Saturation Unsat Iron Binding Total Bilirubin 1.5 H AST 22 ALT 11 Alkaline Phosphatase 97 B-Natriuretic Peptide Total Protein 6.7 Albumin 3.5 Urine Color Urine Appearance Urine pH Ur Specific Maxwell Urine Protein Urine Glucose (UA) Urine Ketones Urine Blood Urine Nitrite Ur Leukocyte Esterase Urine RBC Urine WBC Ur Squamous Epith Cells Urine Bacteria Hyaline Casts Urine Opiates Screen Urine Fentanyl Screen Ur Barbiturates Screen Ur Phencyclidine Scrn Ur Amphetamines Screen U Benzodiazepines Scrn Urine Cocaine Screen U Marijuana (THC) Screen 02/13/23 02/13/23 02/13/23 19:56 19:56 21:56 MCV MCH MCHC RDW Plt Count MPV Immature Gran % (Auto) Neut % (Auto) Lymph % (Auto) [place] % (Auto) Eos % (Auto) Baso % (Auto) Lymph # (Auto) [place] # (Auto) Eos # (Auto) Baso # (Auto) Abs Immat Gran (auto) Absolute Neuts (auto) Absolute Nucleated RBC Nucleated RBC % (auto) Smear Tech's Comments PT INR O2 Saturation ABG pH at Pt Temp ABG pCO2 at Pt Temp ABG pO2 at Pt Temp ABG HCO3 ABG Base Excess (Actual) VBG pH VBG pCO2 VBG pO2 VBG HCO3 VBG O2 Saturation VBG Base Excess Anion Gap Estim Creat Clear Calc Estimated GFR POC Glucose 301 H Random Glucose Lactic Acid 2.8 H* Lactic Acid F/U @ 2Hr Lactic Acid F/U @ 4Hr Calcium Iron TIBC % Saturation Unsat Iron Binding Total Bilirubin AST ALT Alkaline Phosphatase B-Natriuretic Peptide 3603 H Total Protein Albumin Urine Color Urine Appearance Urine pH Ur Specific Maxwell Urine Protein Urine Glucose (UA) Urine Ketones Urine Blood Urine Nitrite Ur Leukocyte Esterase Urine RBC Urine WBC Ur Squamous Epith Cells Urine Bacteria Hyaline Casts Urine Opiates Screen Urine Fentanyl Screen Ur Barbiturates Screen Ur Phencyclidine Scrn Ur Amphetamines Screen U Benzodiazepines Scrn Urine Cocaine Screen U Marijuana (THC) Screen 02/13/23 02/13/23 02/13/23 23:07 23:24 23:24 MCV MCH MCHC RDW Plt Count MPV Immature Gran % (Auto) Neut % (Auto) Lymph % (Auto) [place] % (Auto) Eos % (Auto) Baso % (Auto) Lymph # (Auto) [place] # (Auto) Eos # (Auto) Baso # (Auto) Abs Immat Gran (auto) Absolute Neuts (auto) Absolute Nucleated RBC Nucleated RBC % (auto) Smear Tech's Comments PT INR O2 Saturation 99.0 ABG pH at Pt Temp 7.20 L* ABG pCO2 at Pt Temp 45 ABG pO2 at Pt Temp 130 H ABG HCO3 18 L ABG Base Excess (Actual) -9.5 VBG pH VBG pCO2 VBG pO2 VBG HCO3 VBG O2 Saturation VBG Base Excess Anion Gap Estim Creat Clear Calc Estimated GFR POC Glucose Random Glucose Lactic Acid Lactic Acid F/U @ 2Hr Lactic Acid F/U @ 4Hr Calcium Iron TIBC % Saturation Unsat Iron Binding Total Bilirubin AST ALT Alkaline Phosphatase B-Natriuretic Peptide Total Protein Albumin Urine Color Yellow Urine Appearance Clear Urine pH 5.5 Ur Specific Maxwell 1.010 Urine Protein 100 (2+) H Urine Glucose (UA) 250 H Urine Ketones Negative Urine Blood Small (1+) H Urine Nitrite Negative Ur Leukocyte Esterase Trace H Urine RBC 11-20 H Urine WBC 11-20 H Ur Squamous Epith Cells 6-10 Urine Bacteria None Seen Hyaline Casts 11-20 Urine Opiates Screen Not Detected Urine Fentanyl Screen Not Detected Ur Barbiturates Screen Not Detected Ur Phencyclidine Scrn Not Detected Ur Amphetamines Screen Not Detected U Benzodiazepines Scrn Not Detected Urine Cocaine Screen Not Detected U Marijuana (THC) Screen Not Detected 02/13/23 02/13/23 02/13/23 23:25 23:25 23:25 MCV 70.1 L MCH 19.2 L MCHC 27.4 L RDW 23.0 H Plt Count 135 L D MPV Immature Gran % (Auto) 1.2 H Neut % (Auto) 83.4 H Lymph % (Auto) 9.0 L [place] % (Auto) 5.2 Eos % (Auto) 0.7 Baso % (Auto) 0.5 Lymph # (Auto) 1.4 [place] # (Auto) 0.8 Eos # (Auto) 0.1 Baso # (Auto) 0.1 Abs Immat Gran (auto) 0.19 H Absolute Neuts (auto) 13.4 H Absolute Nucleated RBC 0.140 H Nucleated RBC % (auto) 0.9 H Smear Tech's Comments PT INR O2 Saturation ABG pH at Pt Temp ABG pCO2 at Pt Temp ABG pO2 at Pt Temp ABG HCO3 ABG Base Excess (Actual) VBG pH VBG pCO2 VBG pO2 VBG HCO3 VBG O2 Saturation VBG Base Excess Anion Gap 20 Estim Creat Clear Calc 30.9 Estimated GFR 24 POC Glucose Random Glucose 472 H* Lactic Acid Lactic Acid F/U @ 2Hr 6.5 H* Lactic Acid F/U @ 4Hr Calcium 8.6 D Iron 313 H TIBC 650 H % Saturation 48 Unsat Iron Binding 337 Total Bilirubin 1.2 H AST 15 ALT 11 Alkaline Phosphatase 100 B-Natriuretic Peptide Total Protein 6.3 L Albumin 3.3 L Urine Color Urine Appearance Urine pH Ur Specific Maxwell Urine Protein Urine Glucose (UA) Urine Ketones Urine Blood Urine Nitrite Ur Leukocyte Esterase Urine RBC Urine WBC Ur Squamous Epith Cells Urine Bacteria Hyaline Casts Urine Opiates Screen Urine Fentanyl Screen Ur Barbiturates Screen Ur Phencyclidine Scrn Ur Amphetamines Screen U Benzodiazepines Scrn Urine Cocaine Screen U Marijuana (THC) Screen 02/14/23 02/14/23 02/14/23 01:46 02:25 05:03 MCV 67.9 L MCH 19.3 L MCHC 28.5 L RDW 21.8 H Plt Count 72 L D MPV Not Reportable Immature Gran % (Auto) 0.8 H Neut % (Auto) 90.9 H Lymph % (Auto) 3.2 L [place] % (Auto) 4.7 Eos % (Auto) 0.1 Baso % (Auto) 0.3 Lymph # (Auto) 0.2 L [place] # (Auto) 0.4 Eos # (Auto) 0.0 Baso # (Auto) 0.0 Abs Immat Gran (auto) 0.06 H Absolute Neuts (auto) 6.9 Absolute Nucleated RBC 0.040 H Nucleated RBC % (auto) 0.5 H Smear Tech's Comments VERIFIED PT INR O2 Saturation ABG pH at Pt Temp ABG pCO2 at Pt Temp ABG pO2 at Pt Temp ABG HCO3 ABG Base Excess (Actual) VBG pH VBG pCO2 VBG pO2 VBG HCO3 VBG O2 Saturation VBG Base Excess Anion Gap Estim Creat Clear Calc Estimated GFR POC Glucose 356 H* Random Glucose Lactic Acid Lactic Acid F/U @ 2Hr Lactic Acid F/U @ 4Hr 1.9 Calcium Iron TIBC % Saturation Unsat Iron Binding Total Bilirubin AST ALT Alkaline Phosphatase B-Natriuretic Peptide Total Protein Albumin Urine Color Urine Appearance Urine pH Ur Specific Maxwell Urine Protein Urine Glucose (UA) Urine Ketones Urine Blood Urine Nitrite Ur Leukocyte Esterase Urine RBC Urine WBC Ur Squamous Epith Cells Urine Bacteria Hyaline Casts Urine Opiates Screen Urine Fentanyl Screen Ur Barbiturates Screen Ur Phencyclidine Scrn Ur Amphetamines Screen U Benzodiazepines Scrn Urine Cocaine Screen U Marijuana (THC) Screen 02/14/23 02/14/23 02/14/23 05:03 05:03 05:07 MCV MCH MCHC RDW Plt Count MPV Immature Gran % (Auto) Neut % (Auto) Lymph % (Auto) [place] % (Auto) Eos % (Auto) Baso % (Auto) Lymph # (Auto) [place] # (Auto) Eos # (Auto) Baso # (Auto) Abs Immat Gran (auto) Absolute Neuts (auto) Absolute Nucleated RBC Nucleated RBC % (auto) Smear Tech's Comments PT INR O2 Saturation ABG pH at Pt Temp ABG pCO2 at Pt Temp ABG pO2 at Pt Temp ABG HCO3 ABG Base Excess (Actual) VBG pH 7.46 H VBG pCO2 44 VBG pO2 44 VBG HCO3 32 H VBG O2 Saturation 69.0 VBG Base Excess 8.0 Anion Gap 14 Estim Creat Clear Calc 31.5 Estimated GFR 25 POC Glucose Random Glucose 361 H* Lactic Acid 2.0 Lactic Acid F/U @ 2Hr Lactic Acid F/U @ 4Hr Calcium 8.5 Iron TIBC % Saturation Unsat Iron Binding Total Bilirubin 1.1 H AST 10 ALT 9 Alkaline Phosphatase 71 B-Natriuretic Peptide Total Protein 5.1 L Albumin 3.0 L Urine Color Urine Appearance Urine pH Ur Specific Maxwell Urine Protein Urine Glucose (UA) Urine Ketones Urine Blood Urine Nitrite Ur Leukocyte Esterase Urine RBC Urine WBC Ur Squamous Epith Cells Urine Bacteria Hyaline Casts Urine Opiates Screen Urine Fentanyl Screen Ur Barbiturates Screen Ur Phencyclidine Scrn Ur Amphetamines Screen U Benzodiazepines Scrn Urine Cocaine Screen U Marijuana (THC) Screen 02/14/23 05:52 MCV MCH MCHC RDW Plt Count MPV Immature Gran % (Auto) Neut % (Auto) Lymph % (Auto) [place] % (Auto) Eos % (Auto) Baso % (Auto) Lymph # (Auto) [place] # (Auto) Eos # (Auto) Baso # (Auto) Abs Immat Gran (auto) Absolute Neuts (auto) Absolute Nucleated RBC Nucleated RBC % (auto) Smear Tech's Comments PT INR O2 Saturation ABG pH at Pt Temp ABG pCO2 at Pt Temp ABG pO2 at Pt Temp ABG HCO3 ABG Base Excess (Actual) VBG pH VBG pCO2 VBG pO2 VBG HCO3 VBG O2 Saturation VBG Base Excess Anion Gap Estim Creat Clear Calc Estimated GFR POC Glucose 333 H Random Glucose Lactic Acid Lactic Acid F/U @ 2Hr Lactic Acid F/U @ 4Hr Calcium Iron TIBC % Saturation Unsat Iron Binding Total Bilirubin AST ALT Alkaline Phosphatase B-Natriuretic Peptide Total Protein Albumin Urine Color Urine Appearance Urine pH Ur Specific Maxwell Urine Protein Urine Glucose (UA) Urine Ketones Urine Blood Urine Nitrite Ur Leukocyte Esterase Urine RBC Urine WBC Ur Squamous Epith Cells Urine Bacteria Hyaline Casts Urine Opiates Screen Urine Fentanyl Screen Ur Barbiturates Screen Ur Phencyclidine Scrn Ur Amphetamines Screen U Benzodiazepines Scrn Urine Cocaine Screen U Marijuana (THC) Screen Imaging Radiologist's Impressions: Impressions Chest X-Ray 02/13/23 18:55 IMPRESSION: Increasing small bilateral pleural effusions. Venous Duplex 02/13/23 21:39 IMPRESSION: No DVT demonstrated in the left lower extremity. Chest X-Ray 02/13/23 22:45 IMPRESSION: 1. Interval placement of a left-sided central venous catheter with the tip in the region of the SVC. Endotracheal tube with its tip approximately 3.3 cm proximal to the dayne. 2. Layering right-sided pleural effusion with adjacent atelectasis, slightly more prominent when compared to the prior examination. Small, layering left-sided pleural effusion, unchanged. 3. No pneumothorax or pneumomediastinum. Head CT 02/14/23 01:14 IMPRESSION: No acute intracranial pathology. Chest CTA 02/14/23 01:15 IMPRESSION: 1. No evidence for pulmonary embolism. 2. Moderate right and small left pleural effusions. 3. Bilateral lower lung field consolidation/infiltrates likely a combination of pneumonia and atelectasis. VTE: Negative for pulmonary embolism. Abdomen/Pelvis CT 02/14/23 01:19 IMPRESSION: 1. Bilateral pleural effusions with bibasilar consolidation possibly a combination of atelectasis and infiltrate. 2. Irregular liver suggests hepatocellular disease/cirrhosis. There is associated splenomegaly, mild ascites and soft tissue anasarca. 3. Atherosclerotic plaque of the aorta as well as renal vascular calcification. No evidence for acute intra-abdominal process. Fleischner guidelines were followed. Assessment and Plan (1) Wound dehiscence: Status: Acute (2) Below-knee amputation of left lower extremity: Status: Acute Plan 52-year-old female with life-threatening illness 2 to septicemia and infected left BKA, diabetes. Discontinue Allevyn. Use alginate cut to fit the open area. Change daily or as needed for drainage and cover with DSD. No obvious source of pressure, friction or shear. When she is feeling better, if she desires outpatient wound care at [facility], we are happy to see her again on an outpatient basis to help with BKA dehisence. Consider rehab stay first for debility, balance, proper assistive devices related to BKA if patient is willing upon completion of acute hospital course in order to reduce recurrent fall risk after discharge. Time Spent With Patient Time: Total time managing care of this patient today ____ minutes.
[2023-02-14] MEDS: propofoL 1,000 MG/100 ML VIAL 12.25 MG IVCONT ×2 (10:21→22:16)
[2023-02-14 10:28] LABS: Iron 167 mcg/dL (30-160)
[2023-02-14 10:30] LABS: Percent Iron Saturation 33 % (15-50)
[2023-02-14 10:35] LABS: Total Iron Binding Capacity 504 mcg/dL (228-428)
[2023-02-14 10:46] LABS: OBS Int Ctl Valid YES; OBS1 NEGATIVE (NEGATIVE)
--- NOTE | 2023-02-14 11:41 | P.PNCC_ITS ---
Subjective Subjective Date of Service: 02/14/23 Interval History: admitted ICU overnight; not requiring vasopressors; ventilator setting weaned to minimal; Critical Care Time (minutes): 120 Physical Exam Vital Signs: Vital Signs: Last Vital Signs Temp 97.5 F 02/14/23 11:00 Pulse 84 02/14/23 11:00 Resp 18 02/14/23 11:00 BP 120/73 02/14/23 11:00 Pulse Ox 99 02/14/23 11:00 O2 Del Method Mechanical Ventil ation 02/14/23 11:00 FiO2 30 02/14/23 11:24 BMI result Body Mass Index 31.2 Const: Other: intubated, sedated on low-dose propofol, compliant w/ ventilator General: no acute distress and well developed HEENT: Head: Yes normal to inspection, Yes normocephalic and Yes atraumatic Eyes: Pupils: Equal, round and reactive pupils present Neck: Neck: Yes normal visual inspection Chest: Chest palpation & inspection: normal inspection of the chest Resp: Other: intubated, compliant w/ ventilator Cardio: Rate: regular rate Rhythm: regular rhythm Heart sounds: S1 abnormal and S2 abnormal GI: Other: no overt pain to palpation throughout Inspection: Yes normal to inspection and No distended : General: Yes deferred Skin: Other: appreciable wound L knee at BKA with mild erythema, white discharge, though no overt purulence; abrasions throughout R lower extremity Neuro: Other: sedated; unable to assess Cranial nerves: Yes Equal, round and reactive pupils present Extrem: Other: appreciable 2+ pitting edema to R knee; L knee wound dehiscense as described above Psych: Other: sedated; unable to assess Objective Data Labs 02/14/23 05:03 02/14/23 05:03 Labs: Laboratory Results - last 24 hr 02/13/23 02/13/23 02/13/23 19:56 19:56 19:56 WBC 5.6 RBC 5.13 Hgb 9.8 L Hct 35.1 L MCV 68.4 L MCH 19.1 L MCHC 27.9 L RDW 22.7 H Plt Count 86 L D MPV Not Reportable Immature Gran % (Auto) 0.5 H Neut % (Auto) 77.9 H Lymph % (Auto) 11.7 L [place] % (Auto) 7.0 Eos % (Auto) 1.6 Baso % (Auto) 1.3 Lymph # (Auto) 0.7 L [place] # (Auto) 0.4 Eos # (Auto) 0.1 Baso # (Auto) 0.1 Abs Immat Gran (auto) 0.03 Absolute Neuts (auto) 4.3 Absolute Nucleated RBC 0.030 H Nucleated RBC % (auto) 0.5 H Smear Tech's Comments VERIFIED PT 16.3 H D INR 1.3 H O2 Saturation ABG pH at Pt Temp ABG pCO2 at Pt Temp ABG pO2 at Pt Temp ABG HCO3 ABG Base Excess (Actual) VBG pH VBG pCO2 VBG pO2 VBG HCO3 VBG O2 Saturation VBG Base Excess Sodium 135 Potassium 4.9 Chloride 101 Carbon Dioxide 22 Anion Gap 17 BUN 28 H Creatinine 1.99 H Estim Creat Clear Calc 30.9 Estimated GFR 26 POC Glucose Random Glucose 349 H Lactic Acid Lactic Acid F/U @ 2Hr Lactic Acid F/U @ 4Hr Calcium 9.2 Iron TIBC % Saturation Unsat Iron Binding Total Bilirubin 1.5 H AST 22 ALT 11 Alkaline Phosphatase 97 Troponin I High Sens B-Natriuretic Peptide Total Protein 6.7 Albumin 3.5 Urine Color Urine Appearance Urine pH Ur Specific [place] Urine Protein Urine Glucose (UA) Urine Ketones Urine Blood Urine Nitrite Ur Leukocyte Esterase Urine RBC Urine WBC Ur Squamous Epith Cells Urine Bacteria Hyaline Casts Stool Occult Blood Urine Opiates Screen Urine Fentanyl Screen Ur Barbiturates Screen Ur Phencyclidine Scrn Ur Amphetamines Screen U Benzodiazepines Scrn Urine Cocaine Screen U Marijuana (THC) Screen 02/13/23 02/13/23 02/13/23 19:56 19:56 19:56 WBC RBC Hgb Hct MCV MCH MCHC RDW Plt Count MPV Immature Gran % (Auto) Neut % (Auto) Lymph % (Auto) [place] % (Auto) Eos % (Auto) Baso % (Auto) Lymph # (Auto) [place] # (Auto) Eos # (Auto) Baso # (Auto) Abs Immat Gran (auto) Absolute Neuts (auto) Absolute Nucleated RBC Nucleated RBC % (auto) Smear Tech's Comments PT INR O2 Saturation ABG pH at Pt Temp ABG pCO2 at Pt Temp ABG pO2 at Pt Temp ABG HCO3 ABG Base Excess (Actual) VBG pH VBG pCO2 VBG pO2 VBG HCO3 VBG O2 Saturation VBG Base Excess Sodium Potassium Chloride Carbon Dioxide Anion Gap BUN Creatinine Estim Creat Clear Calc Estimated GFR POC Glucose Random Glucose Lactic Acid 2.8 H* Lactic Acid F/U @ 2Hr Lactic Acid F/U @ 4Hr Calcium Iron TIBC % Saturation Unsat Iron Binding Total Bilirubin AST ALT Alkaline Phosphatase Troponin I High Sens 18.2 H B-Natriuretic Peptide 3603 H Total Protein Albumin Urine Color Urine Appearance Urine pH Ur Specific [place] Urine Protein Urine Glucose (UA) Urine Ketones Urine Blood Urine Nitrite Ur Leukocyte Esterase Urine RBC Urine WBC Ur Squamous Epith Cells Urine Bacteria Hyaline Casts Stool Occult Blood Urine Opiates Screen Urine Fentanyl Screen Ur Barbiturates Screen Ur Phencyclidine Scrn Ur Amphetamines Screen U Benzodiazepines Scrn Urine Cocaine Screen U Marijuana (THC) Screen 02/13/23 02/13/23 02/13/23 21:56 23:07 23:24 WBC RBC Hgb Hct MCV MCH MCHC RDW Plt Count MPV Immature Gran % (Auto) Neut % (Auto) Lymph % (Auto) [place] % (Auto) Eos % (Auto) Baso % (Auto) Lymph # (Auto) [place] # (Auto) Eos # (Auto) Baso # (Auto) Abs Immat Gran (auto) Absolute Neuts (auto) Absolute Nucleated RBC Nucleated RBC % (auto) Smear Tech's Comments PT INR O2 Saturation 99.0 ABG pH at Pt Temp 7.20 L* ABG pCO2 at Pt Temp 45 ABG pO2 at Pt Temp 130 H ABG HCO3 18 L ABG Base Excess (Actual) -9.5 VBG pH VBG pCO2 VBG pO2 VBG HCO3 VBG O2 Saturation VBG Base Excess Sodium Potassium Chloride Carbon Dioxide Anion Gap BUN Creatinine Estim Creat Clear Calc Estimated GFR POC Glucose 301 H Random Glucose Lactic Acid Lactic Acid F/U @ 2Hr Lactic Acid F/U @ 4Hr Calcium Iron TIBC % Saturation Unsat Iron Binding Total Bilirubin AST ALT Alkaline Phosphatase Troponin I High Sens B-Natriuretic Peptide Total Protein Albumin Urine Color Yellow Urine Appearance Clear Urine pH 5.5 Ur Specific [place] 1.010 Urine Protein 100 (2+) H Urine Glucose (UA) 250 H Urine Ketones Negative Urine Blood Small (1+) H Urine Nitrite Negative Ur Leukocyte Esterase Trace H Urine RBC 11-20 H Urine WBC 11-20 H Ur Squamous Epith Cells 6-10 Urine Bacteria None Seen Hyaline Casts 11-20 Stool Occult Blood Urine Opiates Screen Urine Fentanyl Screen Ur Barbiturates Screen Ur Phencyclidine Scrn Ur Amphetamines Screen U Benzodiazepines Scrn Urine Cocaine Screen U Marijuana (THC) Screen 02/13/23 02/13/23 02/13/23 23:24 23:25 23:25 WBC 16.0 H RBC 5.42 Hgb 10.4 L Hct 38.0 MCV 70.1 L MCH 19.2 L MCHC 27.4 L RDW 23.0 H Plt Count 135 L D MPV Immature Gran % (Auto) 1.2 H Neut % (Auto) 83.4 H Lymph % (Auto) 9.0 L [place] % (Auto) 5.2 Eos % (Auto) 0.7 Baso % (Auto) 0.5 Lymph # (Auto) 1.4 [place] # (Auto) 0.8 Eos # (Auto) 0.1 Baso # (Auto) 0.1 Abs Immat Gran (auto) 0.19 H Absolute Neuts (auto) 13.4 H Absolute Nucleated RBC 0.140 H Nucleated RBC % (auto) 0.9 H Smear Tech's Comments PT INR O2 Saturation ABG pH at Pt Temp ABG pCO2 at Pt Temp ABG pO2 at Pt Temp ABG HCO3 ABG Base Excess (Actual) VBG pH VBG pCO2 VBG pO2 VBG HCO3 VBG O2 Saturation VBG Base Excess Sodium Potassium Chloride Carbon Dioxide Anion Gap BUN Creatinine Estim Creat Clear Calc Estimated GFR POC Glucose Random Glucose Lactic Acid Lactic Acid F/U @ 2Hr 6.5 H* Lactic Acid F/U @ 4Hr Calcium Iron TIBC % Saturation Unsat Iron Binding Total Bilirubin AST ALT Alkaline Phosphatase Troponin I High Sens B-Natriuretic Peptide Total Protein Albumin Urine Color Urine Appearance Urine pH Ur Specific [place] Urine Protein Urine Glucose (UA) Urine Ketones Urine Blood Urine Nitrite Ur Leukocyte Esterase Urine RBC Urine WBC Ur Squamous Epith Cells Urine Bacteria Hyaline Casts Stool Occult Blood Urine Opiates Screen Not Detected Urine Fentanyl Screen Not Detected Ur Barbiturates Screen Not Detected Ur Phencyclidine Scrn Not Detected Ur Amphetamines Screen Not Detected U Benzodiazepines Scrn Not Detected Urine Cocaine Screen Not Detected U Marijuana (THC) Screen Not Detected 02/13/23 02/13/23 02/14/23 23:25 23:25 01:46 WBC RBC Hgb Hct MCV MCH MCHC RDW Plt Count MPV Immature Gran % (Auto) Neut % (Auto) Lymph % (Auto) [place] % (Auto) Eos % (Auto) Baso % (Auto) Lymph # (Auto) [place] # (Auto) Eos # (Auto) Baso # (Auto) Abs Immat Gran (auto) Absolute Neuts (auto) Absolute Nucleated RBC Nucleated RBC % (auto) Smear Tech's Comments PT INR O2 Saturation ABG pH at Pt Temp ABG pCO2 at Pt Temp ABG pO2 at Pt Temp ABG HCO3 ABG Base Excess (Actual) VBG pH VBG pCO2 VBG pO2 VBG HCO3 VBG O2 Saturation VBG Base Excess Sodium 135 Potassium 4.7 Chloride 101 Carbon Dioxide 19 L Anion Gap 20 BUN 29 H Creatinine 2.13 H Estim Creat Clear Calc 30.9 Estimated GFR 24 POC Glucose 356 H* Random Glucose 472 H* Lactic Acid Lactic Acid F/U @ 2Hr Lactic Acid F/U @ 4Hr Calcium 8.6 D Iron 167 H TIBC 504 H % Saturation 33 Unsat Iron Binding 337 Total Bilirubin 1.2 H AST 15 ALT 11 Alkaline Phosphatase 100 Troponin I High Sens 23.6 H B-Natriuretic Peptide Total Protein 6.3 L Albumin 3.3 L Urine Color Urine Appearance Urine pH Ur Specific [place] Urine Protein Urine Glucose (UA) Urine Ketones Urine Blood Urine Nitrite Ur Leukocyte Esterase Urine RBC Urine WBC Ur Squamous Epith Cells Urine Bacteria Hyaline Casts Stool Occult Blood Urine Opiates Screen Urine Fentanyl Screen Ur Barbiturates Screen Ur Phencyclidine Scrn Ur Amphetamines Screen U Benzodiazepines Scrn Urine Cocaine Screen U Marijuana (THC) Screen 02/14/23 02/14/23 02/14/23 02:25 05:03 05:03 WBC 7.6 RBC 3.83 L D Hgb 7.4 L D Hct 26.0 L D MCV 67.9 L MCH 19.3 L MCHC 28.5 L RDW 21.8 H Plt Count 72 L D MPV Not Reportable Immature Gran % (Auto) 0.8 H Neut % (Auto) 90.9 H Lymph % (Auto) 3.2 L [place] % (Auto) 4.7 Eos % (Auto) 0.1 Baso % (Auto) 0.3 Lymph # (Auto) 0.2 L [place] # (Auto) 0.4 Eos # (Auto) 0.0 Baso # (Auto) 0.0 Abs Immat Gran (auto) 0.06 H Absolute Neuts (auto) 6.9 Absolute Nucleated RBC 0.040 H Nucleated RBC % (auto) 0.5 H Smear Tech's Comments VERIFIED PT INR O2 Saturation ABG pH at Pt Temp ABG pCO2 at Pt Temp ABG pO2 at Pt Temp ABG HCO3 ABG Base Excess (Actual) VBG pH VBG pCO2 VBG pO2 VBG HCO3 VBG O2 Saturation VBG Base Excess Sodium 140 Potassium 4.1 Chloride 102 Carbon Dioxide 28 Anion Gap 14 BUN 30 H Creatinine 2.09 H Estim Creat Clear Calc 31.5 Estimated GFR 25 POC Glucose Random Glucose 361 H* Lactic Acid Lactic Acid F/U @ 2Hr Lactic Acid F/U @ 4Hr 1.9 Calcium 8.5 Iron TIBC % Saturation Unsat Iron Binding Total Bilirubin 1.1 H AST 10 ALT 9 Alkaline Phosphatase 71 Troponin I High Sens B-Natriuretic Peptide Total Protein 5.1 L Albumin 3.0 L Urine Color Urine Appearance Urine pH Ur Specific [place] Urine Protein Urine Glucose (UA) Urine Ketones Urine Blood Urine Nitrite Ur Leukocyte Esterase Urine RBC Urine WBC Ur Squamous Epith Cells Urine Bacteria Hyaline Casts Stool Occult Blood Urine Opiates Screen Urine Fentanyl Screen Ur Barbiturates Screen Ur Phencyclidine Scrn Ur Amphetamines Screen U Benzodiazepines Scrn Urine Cocaine Screen U Marijuana (THC) Screen 02/14/23 02/14/23 02/14/23 05:03 05:03 05:07 WBC RBC Hgb Hct MCV MCH MCHC RDW Plt Count MPV Immature Gran % (Auto) Neut % (Auto) Lymph % (Auto) [place] % (Auto) Eos % (Auto) Baso % (Auto) Lymph # (Auto) [place] # (Auto) Eos # (Auto) Baso # (Auto) Abs Immat Gran (auto) Absolute Neuts (auto) Absolute Nucleated RBC Nucleated RBC % (auto) Smear Tech's Comments PT INR O2 Saturation ABG pH at Pt Temp ABG pCO2 at Pt Temp ABG pO2 at Pt Temp ABG HCO3 ABG Base Excess (Actual) VBG pH 7.46 H VBG pCO2 44 VBG pO2 44 VBG HCO3 32 H VBG O2 Saturation 69.0 VBG Base Excess 8.0 Sodium Potassium Chloride Carbon Dioxide Anion Gap BUN Creatinine Estim Creat Clear Calc Estimated GFR POC Glucose Random Glucose Lactic Acid 2.0 Lactic Acid F/U @ 2Hr Lactic Acid F/U @ 4Hr Calcium Iron TIBC % Saturation Unsat Iron Binding Total Bilirubin AST ALT Alkaline Phosphatase Troponin I High Sens 102.4 H* D B-Natriuretic Peptide Total Protein Albumin Urine Color Urine Appearance Urine pH Ur Specific [place] Urine Protein Urine Glucose (UA) Urine Ketones Urine Blood Urine Nitrite Ur Leukocyte Esterase Urine RBC Urine WBC Ur Squamous Epith Cells Urine Bacteria Hyaline Casts Stool Occult Blood Urine Opiates Screen Urine Fentanyl Screen Ur Barbiturates Screen Ur Phencyclidine Scrn Ur Amphetamines Screen U Benzodiazepines Scrn Urine Cocaine Screen U Marijuana (THC) Screen 02/14/23 02/14/23 05:52 10:25 WBC RBC Hgb Hct MCV MCH MCHC RDW Plt Count MPV Immature Gran % (Auto) Neut % (Auto) Lymph % (Auto) [place] % (Auto) Eos % (Auto) Baso % (Auto) Lymph # (Auto) [place] # (Auto) Eos # (Auto) Baso # (Auto) Abs Immat Gran (auto) Absolute Neuts (auto) Absolute Nucleated RBC Nucleated RBC % (auto) Smear Tech's Comments PT INR O2 Saturation ABG pH at Pt Temp ABG pCO2 at Pt Temp ABG pO2 at Pt Temp ABG HCO3 ABG Base Excess (Actual) VBG pH VBG pCO2 VBG pO2 VBG HCO3 VBG O2 Saturation VBG Base Excess Sodium Potassium Chloride Carbon Dioxide Anion Gap BUN Creatinine Estim Creat Clear Calc Estimated GFR POC Glucose 333 H Random Glucose Lactic Acid Lactic Acid F/U @ 2Hr Lactic Acid F/U @ 4Hr Calcium Iron TIBC % Saturation Unsat Iron Binding Total Bilirubin AST ALT Alkaline Phosphatase Troponin I High Sens B-Natriuretic Peptide Total Protein Albumin Urine Color Urine Appearance Urine pH Ur Specific [place] Urine Protein Urine Glucose (UA) Urine Ketones Urine Blood Urine Nitrite Ur Leukocyte Esterase Urine RBC Urine WBC Ur Squamous Epith Cells Urine Bacteria Hyaline Casts Stool Occult Blood NEGATIVE Urine Opiates Screen Urine Fentanyl Screen Ur Barbiturates Screen Ur Phencyclidine Scrn Ur Amphetamines Screen U Benzodiazepines Scrn Urine Cocaine Screen U Marijuana (THC) Screen Progress Note: A&P Assessment and plan (1) Cardiac arrest: Status: Acute (2) Acute hypoxemic respiratory failure: Status: Acute Plan Patient is a 52 Y F w/ multiple comorbidities including DM, c/b chronic foot wound s/p L BKA, CAD, s/p LAD stent, c/b CHF, COPD, asthma, p/t ED on 02/14 w/ diffuse pain, suffered PEA arrest, w/ ROSC w/in 15 minutes, arrest thought to be d/t hypoxia, of unclear etiology, intubated, admitted ICU for further work-up, management N: sedation: propofol gtt; to wean sedation to appreciate neurological exam CV: s/p PEA arrest, unclear etiology, thought to be d/t hypoxia; prior history c/f endocarditis; to follow-up formal echocardiogram; troponinemia, within reaso n in setting of arrest and grossly reassuring EKG; to repeat troponin today R: s/p PEA arrest, though to be d/t hypoxia; CT chest not suggestive of pulmonary embolism, otherwise demonstrating small bilateral pleural effusions, possible underlying infiltrates; ventilator settings minimal; maintain ca pnography, to repeat VBG PRN; to maintain on ventilator today GI: no acute issues; nutrition: to consider tube feeds if maintains on ventilator : function: acute renal insufficiency, likely d/t PEA arrest; electrolytes: no appreciable derangements; volume: furosemide 60 mg IV BID, goal net negative H: anemia, appears in part dilution; continue to monitor ID: prior history c/f endocarditis; to follow-up repeat blood cultures; maintain on empiric vancomycin/cefepime E: DM, c/b hyperglycemia in setting of critical illness, on insulin sliding scale MSK: L wound dehiscence, does not appear grossly infected; appreciate wound recommendations Social: patient's daughter, who is the decision-maker, sister, partner bedside today; clarifications and updates given; of note, it was communicated that e tiology of cardiac arrest remains unclear at this time, and that patient's current condition is critical though stable; sister and partner encouraged to discuss code status and goals of care with the involved loved ones Quality Stroke Does the patient have a stroke diagnosis?: No VTE Prior VTE?: No VTE Risk Level:: Medical - moderate - high VTE Device Contraindication: N/A - Device Ordered VTE Drug Contraindication: N/A - Med Ordered
[2023-02-14 12:03] LABS: Glucose, Whole Blood 258 mg/dL (60-115)
[2023-02-14 15:37] LABS: Troponin-I High Sensitivity 611.9 ng/L (<3.5-17.0)
--- NOTE | 2023-02-14 15:40 | MHC.CM.PN ---
Pt in ICU intbuated after cardiac arrest w/rescusitation. Information obtained from EMR and conversation w/pt's dtr/HCP, Angely. Per Angely, pt resides with significant other, Chay. Angely is her mother's PAYROLL ADMINISTRATOR : pt has had VNA services in the past but none recently. She has a w/c and other adaptive DME at home: Angely or Chay provide transportation. Pt has a long hx of leaving AMA as well as substance use. Goals of care today are to reduce sedation to assess for neurological functioning. D/C are unknown at this time and will depend on pt's clinical and neurological status. HCP on file: CM to follow.
[2023-02-14] MEDS: propofoL 1,000 MG/100 ML VIAL 8.17 MG IVCONT (17:03)
[2023-02-14 18:02] LABS: Glucose, Whole Blood 226 mg/dL (60-115)
[2023-02-14 20:53] LABS: Anion Gap 16 (12-20); Blood Urea Nitrogen 32 mg/dL (9-16); Calcium 8.9 mg/dL (8.4-10.2); Carbon Dioxide 27 mmol/L (22-29); Chloride 102 mmol/L (96-108); Creatinine Clr Calc Pharmacy 32.9; Estimated Glomerular Filt Rate 26; Glucose Random 217 mg/dL (60-115); Potassium 4.1 mmol/L (3.3-5.1); Sodium 141 mmol/L (135-145)
[2023-02-14] MEDS: carvediloL 3.125 MG TABLET PO (21:06)
[2023-02-14] MEDS: Atorvastatin Calcium 80 MG TABLET PO (21:08)
[2023-02-14] MEDS: fentaNYL citrate/PF 100 MCG/2 ML VIAL 50 MCG IVPUSH (22:50)
[2023-02-14 23:52] LABS: Glucose, Whole Blood 234 mg/dL (60-115)
[2023-02-15] VITALS (35 sets, daily range): BP systolic 116–152; BP diastolic 65–94; PULSE 90–108; RESP 13–20; TEMP 34.1–37.7; O2SAT 91–100; BMI 30.9
[2023-02-15] MEDS: vancomycin HCL 750 MG in 0.9 % Sodium Chloride 250 ML 265 MG IV (00:15)
[2023-02-15] MEDS: cefEPime HCl 1 GM in 0.9 % Sodium Chloride 50 ML IV ×2 (00:17→13:39)
[2023-02-15] MEDS: Insulin Lispro 100 UNIT/ML 3 ML VIAL SUBCUT ×4 (00:22→18:44)
[2023-02-15] MEDS: methylPREDNISolone Sod Succ 125 MG/2 ML VIAL 60 MG IVPUSH ×3 (00:24→16:01)
--- NOTE | 2023-02-15 01:46 | PC.NURSE ---
ASSUMED CARE OF PT AT 1900. PT ON AC/VC+ VENT SETTINGS. FIO2 30%. NO ACUTE RESP DISTRESS. O2 SAT MID 90'S. FIO2 DECREASED TO 25% PER PROVIDER JORDON AT 0000. PROPOFOL AT 30 MCG/KG/MIN SHUT OFF AT 2300 BY PROVIDER. FENTANYL 50 MCG IVP GIVEN AT THAT TIME. PT STARTED TO WAKE UP AT ABOUT 0030 COUGHING AND OPENING HER EYES BUT NOT FOLLOWING COMMANDS. REMAINS OFF SEDATION AT THIS TIME, 0130. ETCO2 28-30. BP STABLE, 119/68. MONITOR SHOWS SR-ST, 90'S-108. NO VENT ECTOPY SEEN UNTIL NOW WITH A SHORT RUN OF VTACH 11 BEATS. PROVIDER AWARE OF VTACH. WILL CONTINUE TO MONITOR RHYTHM. U/O GOOD. OGT WAS TO IWS BUT SUCTION DISCONNECTED AND TUBE FLUSHED. PT WAS STARTED ON COREG.
[2023-02-15] MEDS: Albuterol/Iprat 2.5/0.5MG 3 ML AMPUL.NEB INHALE ×4 (03:46→20:29)
[2023-02-15 05:26] LABS: VBG Base Excess 7.7 mmol/L; VBG HCO3 30 mmol/L (22-26); VBG pCO2 37 mmHg; VBG pH 7.52 (7.32-7.43); VBG pO2 44 mmHg
[2023-02-15 05:43] LABS: MANUAL DIFF FLAG NO
[2023-02-15 05:47] LABS: Imm Gran Abs Auto 0.03 X10*3/uL (0.00-0.03); Imm Gran Pct Auto 0.7 % (0.0-0.4); Lymphocytes Absolute Auto 0.3 X10*3/uL (1.2-4.9); Neutrophils Percent Auto 89.1 % (45-73); Red Cell Distribution Width 22.5 % (11.0-16.0); SCAN SMEAR FLAG 1
[2023-02-15 05:49] LABS: Hematocrit 24.3 % (37.0-47.0); Lymphocytes Percent Auto 6.4 % (20-40); Mean Corpuscular HGB Conc 28.8 g/dl (31.0-35.0); Monocytes Absolute Auto 0.2 X10*3/uL (0.1-1.2); Monocytes Percent Auto 3.8 % (2-11); NRBC Pct Auto 0.7 /100WBC (0.0-0.2); Red Blood Count 3.68 X10*6/uL (4.20-5.50); White Blood Count 4.5 X10*3/uL (4.8-10.8)
[2023-02-15 05:50] LABS: PLT ABN DIST 1; Platelet Count 68 X10*3/uL (160-400)
[2023-02-15 06:03] LABS: Alanine Aminotransferase 7 U/L (0-31); Albumin Level 3.3 g/dL (3.5-5.0); Alkaline Phosphatase 56 U/L (39-117); Anion Gap 15 (12-20); Aspartate Amino Transferase 11 U/L (5-31); Bilirubin Total 1.2 mg/dL (0.0-1.0); Blood Urea Nitrogen 37 mg/dL (9-16); Calcium 8.9 mg/dL (8.4-10.2); Carbon Dioxide 28 mmol/L (22-29); Chloride 104 mmol/L (96-108); Creatinine Clr Calc Pharmacy 33.2; Estimated Glomerular Filt Rate 26; Glucose Random 198 mg/dL (60-115); Potassium 3.9 mmol/L (3.3-5.1); Sodium 143 mmol/L (135-145); Total Protein 5.2 g/dL (6.5-8.0)
--- NOTE | 2023-02-15 06:44 | PC.NURSE ---
PT REMAINS OFF SEDATION. SHE WILL WAKE UP AND START COUGHING. OPENS EYES BUT DOES NOT TRACK OR FOLLOW AND DOES NOT FOLLOW COMMANDS. [place]. REMAINS RESTRAINED FOR AIRWAY SAFETY. HGB 7.0 THIS MORNING. PROVIDER JORDON NOTIFIED. AWAITING NEW ORDERS. OGT HAS BEEN OFF ALL NIGHT. RECONNECTED TO SUCTION TO CHECK IF BLEEDING AND SCANT RETURNS OF BROWN FLUID.
[2023-02-15 06:47] LABS: Venous Blood Gas Refer to POC result
[2023-02-15] MEDS: Furosemide 100 MG/10 ML VIAL 60 MG IVPUSH ×2 (08:01→16:01)
[2023-02-15] MEDS: Clopidogrel Bisulfate 75 MG TABLET PO (08:02)
[2023-02-15] MEDS: Aspirin 81 MG TAB.CHEW PO (08:02)
[2023-02-15] MEDS: Heparin Sodium,Porcine 5,000 UNIT/ML VIAL 5000 UNIT SUBCUT ×2 (08:02→21:06)
[2023-02-15] MEDS: carvediloL 3.125 MG TABLET PO ×2 (08:02→20:53)
[2023-02-15] MEDS: Chlorhexidine Gluc Oral Rinse 15 ML MOUTHWASH BUCCAL ×3 (08:02→20:53)
[2023-02-15] MEDS: propofoL 1,000 MG/100 ML VIAL 4.08 MG IVCONT (09:27)
[2023-02-15] MEDS: dexmedeTOMIDidine HCL/NS 400 MCG/100 ML INFUS..BTL 19.78 MCG IVCONT ×3 (10:20→19:16)
[2023-02-15 10:31] LABS: Hematocrit 25.3 % (37.0-47.0); Hemoglobin 7.3 g/dl (12.0-16.0); Mean Corpuscular HGB Conc 28.9 g/dl (31.0-35.0); Mean Corpuscular Hemoglobin 19.3 pg (27.0-33.0); Mean Corpuscular Volume 66.8 fL (80.0-98.0); NRBC Pct Auto 0.5 /100WBC (0.0-0.2); Red Blood Count 3.79 X10*6/uL (4.20-5.50); Red Cell Distribution Width 22.7 % (11.0-16.0); White Blood Count 6.3 X10*3/uL (4.8-10.8)
[2023-02-15 10:32] LABS: Platelet Count 76 X10*3/uL (160-400)
--- NOTE | 2023-02-15 10:32 | MHC.CLN ---
F/U PT IS INTUBATED AND SEDATED-PLAN TO POSSIBLY EXTUBATE TODAY DISCUSSED AT ROUNDS WITH PT REMAINS NPO IF TF NEEDED; RECOMMEND PROMOTE AT MAX GOAL RATE 55ML/HR TO PROVIDE 1320KCALS (1428KCALS WITH SEDATION; 23KCALS/KG), 82.5G PROTEIN (1.35G/KG), 1107ML FREE WATER FROM FORMULA MONITOR TOLERANCE, RESIDUALS AND LYTES
--- NOTE | 2023-02-15 11:46 | P.PNCC_ITS ---
Subjective Subjective Date of Service: 02/15/23 Interval History: no significant events overnight Critical Care Time (minutes): 90 Physical Exam Vital Signs: Vital Signs: Last Vital Signs Temp 99.3 F 02/15/23 11:00 Pulse 97 02/15/23 11:00 Resp 16 02/15/23 11:00 BP 124/69 02/15/23 11:00 Pulse Ox 94 02/15/23 11:00 O2 Del Method Mechanical Ventil ation 02/15/23 11:00 FiO2 30 02/15/23 11:29 BMI result Body Mass Index 30.9 Const: Other: intubated, off sedation, some appreciable discomfort on ventilator, though no acute distress HEENT: Head: Yes normal to inspection, Yes normocephalic and Yes atraumatic Eyes: General: appearance normal, both eyes and all related structures Pupils: Equal, round and reactive pupils present Neck: Neck: Yes normal visual inspection and Yes supple Chest: Chest palpation & inspection: normal inspection of the chest Resp: Effort & Inspection: normal respiratory effort and no respiratory distress Auscultation: clear to auscultation bilaterally Cardio: Rate: regular rate Rhythm: regular rhythm GI: Inspection: Yes normal to inspection and No distended Auscultation: normal bowel sounds Skin: Other: appreciable L knee wound with granulation tissue, mild white discharge Neuro: Other: not on sedation, opens eyes with verbal and noxious stimulus; pupils equal, round, 3 mm reactive to light; appreciable cough, gag; moves bilateral upper and R lower extremities spontaneously Cranial nerves: Yes Equal, round and reactive pupils present Extrem: Other: 1+ pitting edema bilateral hands, R LE; L BKA General: Yes capillary refill normal Psych: Other: unable to assess Objective Data Labs 02/15/23 09:59 02/15/23 05:20 Labs: Laboratory Results - last 24 hr 02/14/23 02/14/23 02/14/23 11:59 14:29 17:51 WBC RBC Hgb Hct MCV MCH MCHC RDW Plt Count MPV Immature Gran % (Auto) Neut % (Auto) Lymph % (Auto) [place] % (Auto) Eos % (Auto) Baso % (Auto) Lymph # (Auto) [place] # (Auto) Eos # (Auto) Baso # (Auto) Abs Immat Gran (auto) Absolute Neuts (auto) Absolute Nucleated RBC Nucleated RBC % (auto) VBG pH VBG pCO2 VBG pO2 VBG HCO3 VBG O2 Saturation VBG Base Excess Sodium Potassium Chloride Carbon Dioxide Anion Gap BUN Creatinine Estim Creat Clear Calc Estimated GFR POC Glucose 258 H 226 H Random Glucose Calcium Total Bilirubin AST ALT Alkaline Phosphatase Troponin I High Sens 611.9 H* D Total Protein Albumin 02/14/23 02/14/23 02/15/23 18:45 23:48 05:20 WBC 4.5 L RBC 3.68 L Hgb 7.0 L* Hct 24.3 L MCV 66.0 L MCH 19.0 L MCHC 28.8 L RDW 22.5 H Plt Count 68 L MPV Not Reportable Immature Gran % (Auto) 0.7 H Neut % (Auto) 89.1 H Lymph % (Auto) 6.4 L [place] % (Auto) 3.8 Eos % (Auto) 0.0 Baso % (Auto) 0.0 Lymph # (Auto) 0.3 L [place] # (Auto) 0.2 Eos # (Auto) 0.0 Baso # (Auto) 0.0 Abs Immat Gran (auto) 0.03 Absolute Neuts (auto) 4.0 Absolute Nucleated RBC 0.030 H Nucleated RBC % (auto) 0.7 H VBG pH VBG pCO2 VBG pO2 VBG HCO3 VBG O2 Saturation VBG Base Excess Sodium 141 Potassium 4.1 Chloride 102 Carbon Dioxide 27 Anion Gap 16 BUN 32 H Creatinine 2.02 H Estim Creat Clear Calc 32.9 Estimated GFR 26 POC Glucose 234 H Random Glucose 217 H Calcium 8.9 Total Bilirubin AST ALT Alkaline Phosphatase Troponin I High Sens Total Protein Albumin 02/15/23 02/15/23 02/15/23 05:20 05:21 09:59 WBC 6.3 RBC 3.79 L Hgb 7.3 L Hct 25.3 L MCV 66.8 L MCH 19.3 L MCHC 28.9 L RDW 22.7 H Plt Count 76 L MPV Not Reportable Immature Gran % (Auto) Neut % (Auto) Lymph % (Auto) [place] % (Auto) Eos % (Auto) Baso % (Auto) Lymph # (Auto) [place] # (Auto) Eos # (Auto) Baso # (Auto) Abs Immat Gran (auto) Absolute Neuts (auto) Absolute Nucleated RBC 0.030 H Nucleated RBC % (auto) 0.5 H VBG pH 7.52 H VBG pCO2 37 VBG pO2 44 VBG HCO3 30 H VBG O2 Saturation 70.0 VBG Base Excess 7.7 Sodium 143 Potassium 3.9 Chloride 104 Carbon Dioxide 28 Anion Gap 15 BUN 37 H Creatinine 2.00 H Estim Creat Clear Calc 33.2 Estimated GFR 26 POC Glucose Random Glucose 198 H Calcium 8.9 Total Bilirubin 1.2 H AST 11 ALT 7 Alkaline Phosphatase 56 Troponin I High Sens Total Protein 5.2 L Albumin 3.3 L Microbiology Microbiology Results: Microbiology 02/13/23 Unknown Urine clean catch - Urine jimenez top Urine Culture - Final No growth. 02/13/23 19:56 Blood - Venous Blood Culture - Preliminary No growth after 24 hours. 02/13/23 20:06 Blood - Venous Blood Culture - Preliminary No growth after 24 hours. Progress Note: A&P Assessment and plan (1) Cardiac arrest: Status: Acute (2) Acute hypoxemic respiratory failure: Status: Acute (3) CHF (congestive heart failure): Status: Acute (4) Congestive heart failure: Status: Acute Plan Patient is a 52 Y F w/ multiple comorbidities including DM, c/b chronic foot wound s/p L BKA, CAD, s/p LAD stent, c/b CHF, COPD, asthma, p/t ED on 02/14 w/ diffuse pain, suffered PEA arrest, w/ ROSC w/in 15 minutes, arrest thought to be d/t hypoxia, of unclear etiology, intubated, admitted ICU for further work-up, management N: sedation: weaned propofol gtt to off in PM; neurological exam now spontaneous movements, though not tracking, following commands; to start dexmedetomidine gtt to tolerate MRI; to follow-up ammonia; considering uremia contributing to mental status, though not profound increase in BUN CV: s/p PEA arrest, unclear etiology, thought to be d/t hypoxia; prior history c/f endocarditis; echocardiogram demonstrating LVEF 10%, though unchanged, not overtly suggestive of endocarditis; troponinemia, within reason in setting of arrest and grossly reassuring EKG R: s/p PEA arrest, though to be d/t hypoxia; CT chest not suggestive of pulmonary embolism, otherwise demonstrating small bilateral pleural effusions, possible underlying infiltrates; now on PS 30% PS 8 PEEP 5 with adequate tidal volumes, to repeat VBG; likely will maintain on ventilator today pending MRI and ideally improvement in mental status GI: no acute issues; nutrition: to consider tube feeds tomorrow if maintains on ventilator : function: acute renal insufficiency, likely d/t PEA arrest; electrolytes: uremia, otherwise no appreciable derangements; volume: furosemide 60 mg IV BID, goal net negative H: anemia, appears in part dilution; to transfuse 1 pRBC ID: prior history c/f endocarditis; to follow-up repeat blood cultures, currently no growth to date; maintain on empiric vancomycin/cefepime likely 5 day course E: DM, c/b hyperglycemia in setting of critical illness, on insulin sliding scale MSK: L wound dehiscence, does not appear grossly infected; appreciate wound recommendations Social: patient's daughter, who is the decision-maker, present at bedside today; after discussion with family, would like to maintain full code pending MRI Quality Stroke Does the patient have a stroke diagnosis?: No VTE Prior VTE?: No VTE Risk Level:: Medical - moderate - high VTE Device Contraindication: N/A - Device Ordered VTE Drug Contraindication: N/A - Med Ordered
[2023-02-15 12:25] LABS: Venous Blood Gas Refer to POC result
[2023-02-15 12:26] LABS: VBG Base Excess 7.5 mmol/L; VBG HCO3 31 mmol/L (22-26); VBG pCO2 41 mmHg; VBG pH 7.48 (7.32-7.43); VBG pO2 61 mmHg
[2023-02-15 12:46] LABS: Ammonia 25 umol/L (13-55)
[2023-02-15 13:14] LABS: HCG Quantitative 5 mIU/mL
[2023-02-15 13:52] LABS: Glucose, Whole Blood 243 mg/dL (60-115)
--- NOTE | 2023-02-15 15:53 | MHC.CM.PN ---
EMR REVIEWED. PT REMAINS ON VENTILATORY SUPPORT IN ICU S/P CARDIAC ARREST. PER ROUNDS, OFF SEDATION AND REMAINS FULL CODE STATUS PER HCP WISHES AT THIS TIME. CM WILL CONTINUE TO FOLLOW FOR DC PLAN/NEEDS.
[2023-02-15 18:37] LABS: Glucose, Whole Blood 272 mg/dL (60-115)
[2023-02-15] MEDS: Lactated Ringers 500 ML 999 ML IV (18:45)
[2023-02-15] MEDS: Atorvastatin Calcium 80 MG TABLET PO (20:53)
[2023-02-15 21:43] LABS: Vancomycin Random 23.9 mcg/mL (15-20)
[2023-02-15 23:59] LABS: Glucose, Whole Blood 247 mg/dL (60-115)
[2023-02-16] VITALS (24 sets, daily range): BP systolic 128–147; BP diastolic 59–98; PULSE 65–100; RESP 12–21; TEMP 34.5–37.7; O2SAT 93–100; BMI 30.2
[2023-02-16] MEDS: cefEPime HCl 1 GM in 0.9 % Sodium Chloride 50 ML IV ×2 (00:18→11:55)
[2023-02-16] MEDS: methylPREDNISolone Sod Succ 125 MG/2 ML VIAL 60 MG IVPUSH ×3 (00:18→16:33)
[2023-02-16] MEDS: Insulin Lispro 100 UNIT/ML 3 ML VIAL SUBCUT ×3 (00:19→12:57)
[2023-02-16] MEDS: Albuterol/Iprat 2.5/0.5MG 3 ML AMPUL.NEB INHALE ×4 (03:30→19:53)
[2023-02-16 05:44] LABS: VBG Base Excess 5.7 mmol/L; VBG HCO3 26 mmol/L (22-26); VBG pCO2 28 mmHg; VBG pH 7.58 (7.32-7.43); VBG pO2 59 mmHg
[2023-02-16 06:18] LABS: Glucose, Whole Blood 230 mg/dL (60-115)
[2023-02-16 06:39] LABS: Alanine Aminotransferase 7 U/L (0-31); Albumin Level 3.4 g/dL (3.5-5.0); Alkaline Phosphatase 56 U/L (39-117); Anion Gap 16 (12-20); Aspartate Amino Transferase 11 U/L (5-31); Bilirubin Total 1.5 mg/dL (0.0-1.0); Blood Urea Nitrogen 51 mg/dL (9-16); Carbon Dioxide 26 mmol/L (22-29); Chloride 104 mmol/L (96-108); Creatinine Clr Calc Pharmacy 30.4; Estimated Glomerular Filt Rate 24; Glucose Random 230 mg/dL (60-115); Potassium 3.8 mmol/L (3.3-5.1); Sodium 142 mmol/L (135-145); Total Protein 5.5 g/dL (6.5-8.0)
[2023-02-16 06:41] LABS: Hematocrit 31.5 % (37.0-47.0); Hemoglobin 9.4 g/dl (12.0-16.0); Imm Gran Abs Auto 0.02 X10*3/uL (0.00-0.03); Imm Gran Pct Auto 0.4 % (0.0-0.4); Lymphocytes Absolute Auto 0.2 X10*3/uL (1.2-4.9); Lymphocytes Percent Auto 3.4 % (20-40); MANUAL DIFF FLAG SCAN; Mean Corpuscular HGB Conc 29.8 g/dl (31.0-35.0); Mean Corpuscular Hemoglobin 20.2 pg (27.0-33.0); Mean Corpuscular Volume 67.7 fL (80.0-98.0); Monocytes Absolute Auto 0.2 X10*3/uL (0.1-1.2); Monocytes Percent Auto 4.2 % (2-11); NRBC Pct Auto 0.7 /100WBC (0.0-0.2); Neutrophils Absolute Auto 5.2 x10*3/uL (2.0-8.3); Red Blood Count 4.65 X10*6/uL (4.20-5.50); Red Cell Distribution Width 23.9 % (11.0-16.0); SCAN SMEAR FLAG 1; White Blood Count 5.7 X10*3/uL (4.8-10.8)
[2023-02-16 06:49] LABS: Platelet Count 75 X10*3/uL (160-400)
[2023-02-16 06:51] LABS: SLIDE REVIEW VERIFIED
[2023-02-16 08:03] LABS: Venous Blood Gas Refer to POC result
[2023-02-16] MEDS: Chlorhexidine Gluc Oral Rinse 15 ML MOUTHWASH BUCCAL (08:45)
[2023-02-16] MEDS: carvediloL 3.125 MG TABLET PO (08:45)
[2023-02-16] MEDS: Clopidogrel Bisulfate 75 MG TABLET PO (08:45)
[2023-02-16 09:28] LABS: Vancomycin Random 20.4 mcg/mL (15-20)
--- NOTE | 2023-02-16 09:47 | HE.PHANOTE ---
RE: VANCO Patients level came back at 20.4. dose was decreased to 500 mg Q24H yesterday, will continue with this dose as RX insight shows this will com eto a level of 17.8, patient has endocarditis so using aggresive dosing, predicted AUC 541
[2023-02-16] MEDS: dexmedeTOMIDidine HCL/NS 400 MCG/100 ML INFUS..BTL IVCONT (10:00)
--- NOTE | 2023-02-16 10:23 | PC.NURSE ---
Pt alert and following commands. MD ordered extubation. RT and MD at bedside with press writer. ETT and OG tube removed without incident. Oral suction applied. Pt placed on 3L o2 via NC with etco2. Precedex drip paused. Restraints removed.
--- NOTE | 2023-02-16 10:31 | MHC.CLN ---
F/U PT WAS EXTUBATED TODAY PT REMAINS NPO WHEN DIET TO ADVANCE RECOMMEND 1500DM 2GM NA FOLLOWING WITH TEAM
[2023-02-16] MEDS: Furosemide 100 MG/10 ML VIAL 60 MG IVPUSH ×2 (10:48→16:33)
[2023-02-16] MEDS: HYDROmorphone HCl 0.5 MG/0.5 ML SYRINGE IVPUSH ×3 (10:49→22:53)
[2023-02-16] MEDS: vancomycin HCL 500 MG in 0.9 % Sodium Chloride 100 ML 110 MG IV (10:49)
--- NOTE | 2023-02-16 11:40 | PM.CCPN ---
Subjective Subjective Date of Service: 02/16/23 Interval History: no overnight events Critical Care Time (minutes): 90 Physical Exam Vital Signs: Vital Signs: Last Vital Signs Temp 99.9 F 02/16/23 11:00 Pulse 95 02/16/23 11:00 Resp 12 02/16/23 11:00 BP 128/59 L 02/16/23 11:00 Pulse Ox 96 02/16/23 11:00 O2 Del Method Nasal Cannula 02/16/23 11:00 O2 Flow Rate 3 02/16/23 11:00 FiO2 25 02/16/23 10:00 BMI result Body Mass Index 30.2 Const: General: cooperative, comfortable and no acute distress Orientation/consciousness: oriented to person, No oriented to place and No oriented to time HEENT: Head: Yes normal to inspection Eyes: General: appearance normal, both eyes and all related structures Pupils: Equal, round and reactive pupils present Neck: Neck: Yes normal visual inspection Chest: Chest palpation & inspection: normal inspection of the chest Resp: Effort & Inspection: normal respiratory effort Cardio: Rate: regular rate Rhythm: regular rhythm GI: Inspection: Yes normal to inspection Skin: Other: L knee wound dehiscence with granulation tissue, no overt purulence Neuro: General: oriented to person, No oriented to place and No oriented to time Cranial nerves: Yes Equal, round and reactive pupils present Extrem: Other: L BKA, otherwise; no appreciable edema General: Yes normal to inspection Psych: Appearance: disheveled Objective Data Labs 02/16/23 05:00 02/16/23 05:00 Labs: Laboratory Results - last 24 hr 02/15/23 02/15/23 02/15/23 11:48 12:21 12:35 WBC RBC Hgb Hct MCV MCH MCHC RDW Plt Count Immature Gran % (Auto) Neut % (Auto) Lymph % (Auto) [place] % (Auto) Eos % (Auto) Baso % (Auto) Lymph # (Auto) [place] # (Auto) Eos # (Auto) Baso # (Auto) Abs Immat Gran (auto) Absolute Neuts (auto) Absolute Nucleated RBC Nucleated RBC % (auto) Smear Tech's Comments VBG pH 7.48 H VBG pCO2 41 VBG pO2 61 VBG HCO3 31 H VBG O2 Saturation 88.0 VBG Base Excess 7.5 Sodium Potassium Chloride Carbon Dioxide Anion Gap BUN Creatinine Estim Creat Clear Calc Estimated GFR POC Glucose Random Glucose Calcium Total Bilirubin AST ALT Alkaline Phosphatase Ammonia 25 Total Protein Albumin Beta HCG, Quant 5 Random Vancomycin Blood Type A Positive Antibody Screen NEGATIVE Crossmatch See Detail 02/15/23 02/15/23 02/15/23 13:44 18:33 21:18 WBC RBC Hgb Hct MCV MCH MCHC RDW Plt Count Immature Gran % (Auto) Neut % (Auto) Lymph % (Auto) [place] % (Auto) Eos % (Auto) Baso % (Auto) Lymph # (Auto) [place] # (Auto) Eos # (Auto) Baso # (Auto) Abs Immat Gran (auto) Absolute Neuts (auto) Absolute Nucleated RBC Nucleated RBC % (auto) Smear Tech's Comments VBG pH VBG pCO2 VBG pO2 VBG HCO3 VBG O2 Saturation VBG Base Excess Sodium Potassium Chloride Carbon Dioxide Anion Gap BUN Creatinine Estim Creat Clear Calc Estimated GFR POC Glucose 243 H 272 H Random Glucose Calcium Total Bilirubin AST ALT Alkaline Phosphatase Ammonia Total Protein Albumin Beta HCG, Quant Random Vancomycin 23.9 H Blood Type Antibody Screen Crossmatch 02/15/23 02/16/23 02/16/23 23:55 05:00 05:12 WBC 5.7 RBC 4.65 D Hgb 9.4 L D Hct 31.5 L D MCV 67.7 L MCH 20.2 L MCHC 29.8 L RDW 23.9 H Plt Count 75 L Immature Gran % (Auto) 0.4 Neut % (Auto) 92.0 H Lymph % (Auto) 3.4 L [place] % (Auto) 4.2 Eos % (Auto) 0.0 Baso % (Auto) 0.0 Lymph # (Auto) 0.2 L [place] # (Auto) 0.2 Eos # (Auto) 0.0 Baso # (Auto) 0.0 Abs Immat Gran (auto) 0.02 Absolute Neuts (auto) 5.2 Absolute Nucleated RBC 0.040 H Nucleated RBC % (auto) 0.7 H Smear Tech's Comments VERIFIED VBG pH 7.58 H VBG pCO2 28 VBG pO2 59 VBG HCO3 26 VBG O2 Saturation 89.0 VBG Base Excess 5.7 Sodium 142 Potassium 3.8 Chloride 104 Carbon Dioxide 26 Anion Gap 16 BUN 51 H Creatinine 2.15 H Estim Creat Clear Calc 30.4 Estimated GFR 24 POC Glucose 247 H Random Glucose 230 H Calcium 9.0 Total Bilirubin 1.5 H AST 11 ALT 7 Alkaline Phosphatase 56 Ammonia Total Protein 5.5 L Albumin 3.4 L Beta HCG, Quant Random Vancomycin Blood Type Antibody Screen Crossmatch 02/16/23 02/16/23 06:15 08:59 WBC RBC Hgb Hct MCV MCH MCHC RDW Plt Count Immature Gran % (Auto) Neut % (Auto) Lymph % (Auto) [place] % (Auto) Eos % (Auto) Baso % (Auto) Lymph # (Auto) [place] # (Auto) Eos # (Auto) Baso # (Auto) Abs Immat Gran (auto) Absolute Neuts (auto) Absolute Nucleated RBC Nucleated RBC % (auto) Smear Tech's Comments VBG pH VBG pCO2 VBG pO2 VBG HCO3 VBG O2 Saturation VBG Base Excess Sodium Potassium Chloride Carbon Dioxide Anion Gap BUN Creatinine Estim Creat Clear Calc Estimated GFR POC Glucose 230 H Random Glucose Calcium Total Bilirubin AST ALT Alkaline Phosphatase Ammonia Total Protein Albumin Beta HCG, Quant Random Vancomycin 20.4 H Blood Type Antibody Screen Crossmatch Microbiology Microbiology Results: Microbiology 02/13/23 19:56 Blood - Venous Blood Culture - Preliminary No growth after 48 hours. 02/13/23 20:06 Blood - Venous Blood Culture - Preliminary No growth after 48 hours. 02/13/23 Unknown Urine clean catch - Urine jimenez top Urine Culture - Final No growth. Progress Note: A&P Assessment and plan (1) Acute hypoxemic respiratory failure: Status: Acute (2) Cardiac arrest: Status: Acute (3) Non-healing amputation site: Status: Acute (4) Type 2 diabetes mellitus with foot ulcer: Status: Acute (5) Congestive heart failure (CHF): Status: Acute Plan Patient is a 52 Y F w/ multiple comorbidities including DM, c/b chronic foot wound s/p L BKA, CAD, s/p LAD stent, c/b CHF, COPD, asthma, p/t ED on 02/14 w/ diffuse pain, suffered PEA arrest, w/ ROSC w/in 15 minutes, arrest thought to be d/t hypoxia, of unclear etiology, intubated, admitted ICU for further work-up, management N: sedation: weaned propofol gtt to off in PM; neurological exam now spontaneous movements, though not tracking, following commands; to start dexmedetomidine gtt to tolerate MRI; to follow-up ammonia; considering uremia contributing to mental status, though not profound increase in BUN CV: s/p PEA arrest, unclear etiology, thought to be d/t hypoxia; prior history c/f endocarditis; echocardiogram demonstrating LVEF 10%, though unchanged, not overtly suggestive of endocarditis; troponinemia, within reason in setting of arrest and grossly reassuring EKG R: s/p PEA arrest, though to be d/t hypoxia, intubated, extubated GI: no acute issues; bedside swallow : function: acute renal insufficiency, likely d/t PEA arrest; electrolytes: uremia, otherwise no appreciable derangements; volume: furosemide 60 mg IV BID, goal net negative H: thrombocytopenia; given on DAPT and intermediate 4T score, to hold DVT prophylaxis ID: prior history c/f endocarditis; to follow-up repeat blood cultures, currently no growth to date; maintain on empiric vancomycin/cefepime likely 5 day course E: DM, c/b hyperglycemia in setting of critical illness, on insulin sliding scale MSK: L wound dehiscence, does not appear grossly infected; appreciate wound recommendations Social: patient's daughter, who is the decision-maker, present at bedside today Quality Stroke Does the patient have a stroke diagnosis?: No VTE Prior VTE?: No VTE Risk Level:: Medical - moderate - high VTE Device Contraindication: N/A - Device Ordered VTE Drug Contraindication: N/A - Med Ordered
[2023-02-16 12:23] LABS: Glucose, Whole Blood 228 mg/dL (60-115)
--- NOTE | 2023-02-16 13:55 | MHC.CM.PN ---
Patient remains in ICU. Extubated 02/16. Patient was recently at [facility] where she left AMA. Patient has a left BKA amp wound that is not healing correctly. Patient has a history of leaving facilities AMA. May be difficult to place if STR is needed. Continue to monitor for d/c needs.
[2023-02-16 18:25] LABS: Glucose, Whole Blood 229 mg/dL (60-115)
--- NOTE | 2023-02-16 19:04 | PC.NURSE ---
assumed care of pt at 1550, per ICU report, pt failed nursing bedside swallowing screen. Pt continuously requests water. another nursing bedside swallowing screen was done @ 1704 where pt failed again. Provider notified, pt continues NPO and speech and swallow eval ordered. at 1820 pt and daughter requested to see provider in regards to NPO status. Provider and nursing fast food supervisor notified. will continue to monitor.
[2023-02-16] MEDS: Dextrose 5 % and 0.9 % NaCl 1,000 ML 80 ML IVCONT (20:04)
[2023-02-16] MEDS: LORazepam 2 MG/ML VIAL 1 MG IVPUSH (21:55)
--- NOTE | 2023-02-16 23:48 | PC.NURSE ---
At start of shift, pt very tearful, anxious and demanding to drink fluids. Previously failed multiple bedside swallow exams. Per MD to conduct another study with family at bedside. Pt failed, attempted ice chips per order however patient began choking on that as well. Informed family and patient she will need to remain NPO for safety pending speech therapy eval. Despite education patient continues to want oral fluids, continued efforts to educate patient. Pt yelling out continuously, very anxious and tearful. MD notified. PRN Ativan 1mg ordered and given. Complaining of left leg pain and discomfort, PRN Dilaudid with some effect. While sleeping O2 sats dipping down to the low/mid 80s. Mouth breathing but recovering quickly to >90%. MD notified, placed on supplemental O2.
[2023-02-17] VITALS (12 sets, daily range): BP systolic 132–177; BP diastolic 71–95; PULSE 66–103; RESP 14–20; TEMP 36.3–37.1; O2SAT 93–98
[2023-02-17 00:20] LABS: Glucose, Whole Blood 273 mg/dL (60-115)
[2023-02-17] MEDS: methylPREDNISolone Sod Succ 125 MG/2 ML VIAL 60 MG IVPUSH (00:27)
[2023-02-17] MEDS: cefEPime HCl 1 GM in 0.9 % Sodium Chloride 50 ML IV ×3 (00:27→22:55)
[2023-02-17] MEDS: Insulin Lispro 100 UNIT/ML 3 ML VIAL SUBCUT ×5 (00:28→22:55)
[2023-02-17] MEDS: Albuterol/Iprat 2.5/0.5MG 3 ML AMPUL.NEB INHALE ×3 (04:10→20:18)
[2023-02-17 05:27] LABS: PLT ABN DIST 1; Red Cell Distribution Width 23.9 % (11.0-16.0)
[2023-02-17 05:29] LABS: Hematocrit 33.3 % (37.0-47.0); Hemoglobin 9.6 g/dl (12.0-16.0); Mean Corpuscular HGB Conc 28.8 g/dl (31.0-35.0); Mean Corpuscular Hemoglobin 19.7 pg (27.0-33.0); Mean Corpuscular Volume 68.2 fL (80.0-98.0); NRBC Pct Auto 0.5 /100WBC (0.0-0.2); Red Blood Count 4.88 X10*6/uL (4.20-5.50); White Blood Count 7.4 X10*3/uL (4.8-10.8)
[2023-02-17 05:30] LABS: Platelet Count 92 X10*3/uL (160-400)
[2023-02-17 05:45] LABS: Anion Gap 15 (12-20); Blood Urea Nitrogen 58 mg/dL (9-16); Calcium 8.9 mg/dL (8.4-10.2); Carbon Dioxide 29 mmol/L (22-29); Chloride 105 mmol/L (96-108); Creatinine Clr Calc Pharmacy 34.3; Estimated Glomerular Filt Rate 28; Glucose Random 265 mg/dL (60-115); Potassium 3.1 mmol/L (3.3-5.1); Sodium 146 mmol/L (135-145)
[2023-02-17 06:02] LABS: Glucose, Whole Blood 257 mg/dL (60-115)
[2023-02-17] MEDS: Dextrose 5 % 1,000 ML 125 ML IVCONT (09:19)
[2023-02-17] MEDS: Clopidogrel Bisulfate 75 MG TABLET PO (09:41)
[2023-02-17] MEDS: Aspirin 81 MG TAB.CHEW PO (09:41)
[2023-02-17] MEDS: carvediloL 3.125 MG TABLET PO ×2 (09:41→20:05)
[2023-02-17] MEDS: methylPREDNISolone Sod Succ 40 MG/ML VIAL IVPUSH (09:41)
[2023-02-17 09:47] LABS: Vancomycin Random 17.9 mcg/mL (15-20)
--- NOTE | 2023-02-17 10:06 | HE.PHANOTE ---
re vanco renal function improving. Trough was 17.9. Will continue current dosing regimen and get a random level tomorrow @0900 joy
--- NOTE | 2023-02-17 10:27 | MHC.CM.PN ---
Per ROUNDS discussion, Patient is not yet medically cleared for dc. PT is recommending STR and CM will continue to follow.
[2023-02-17] MEDS: vancomycin HCL 500 MG in 0.9 % Sodium Chloride 100 ML 110 MG IV (11:50)
[2023-02-17 11:59] LABS: Glucose, Whole Blood 316 mg/dL (60-115)
--- NOTE | 2023-02-17 12:19 | MHC.CLN ---
F/U PT EXTUBATED 02/16 TRANSFERRED TO MEDICAL FLOOR DIET ADVANCED TO 1800DM PUREED WITH HT LIQ PER [place]ON LINER MONITOR PO INTAKE CLOSELY
--- NOTE | 2023-02-17 14:06 | MHC.SL.SWA ---
Speech Pathologist Impression:Risk of aspiration, oropharyngeal dysphagia Dysphasia Diet Status: UPGRADE from NPO, START on NDD1/NTL Liquid Consistency and Strategies for Safe Swallow: Liquid Intake Recommendation: [place] Thick Liquid Intake Strategies: Small Sips No Straws Solid Food Consistency: Dietary Recommendations: Pureed (NDD1) Additional Modifications to Solid Foods: Pt was seen for bedside swallow eval. Pt coughing intermittently with thin liquid. Pt was offered ground texture, but pt refused, stating that she would not be able to chew it d/t edentulous status. Recommend START on PUREED solids (NDD1) and [place] THICK liquids, pills CRUSHED in PUREE. Pt requires total 1:1 assist feeding. Ice chips ok with RN or SEPTIC TANK SETTER supervision. SEPTIC TANK SETTER will continue to follow. Oral Medication Intake: Crushed with Puree Please contact the pharmacy regarding appropriate crushable or liquid drug formulations that are available whenever modified delivery is recommended. Compensatory Strategies and Precautions to be Taken for Safe Swallow: Sitting Upright (90 deg) Double Swallow No Straw Liquids from Cup Liquids from Spoon Small Bites and Sips Rate of Ingestion Change Supervision While Eating and Drinking for Safe Swallow: Total Assistance (1:1) Swallowing Recommended Treatments: Compens. Strategy Educat. Recommendation for Speech: Inpatient Speech Therapy Store Merchandiser Clinican/Clinical Fellow: No Supervisory Statement: I have reviewed and agree with the student/clinical fellow's documentation: N/A Speech Language Pathologist: Candida Khan M.A., [facility]-SEPTIC TANK SETTER
--- NOTE | 2023-02-17 15:37 | P.PNIM_ITS ---
Subjective Subjective Date of Service: 02/17/23 Interval History: Seen and evaluated this morning Passed [employer] TECHNICIAN eval Weaned to RA Denies any fever or chills Hypernatremic and hypokalemic this morning Review of Systems Review of Systems: Yes all other systems are reviewed and are negative Physical Exam 2 Vital Signs: Vital Signs: Last Vital Signs Temp 97.4 F 02/17/23 10:59 Pulse 97 02/17/23 10:59 Resp 20 02/17/23 10:59 BP 155/84 H 02/17/23 10:59 Pulse Ox 94 02/17/23 10:59 O2 Del Method Room Air 02/17/23 10:59 O2 Flow Rate 1 02/17/23 07:24 FiO2 25 02/16/23 10:00 BMI result Body Mass Index 30.2 Const: Other: Constitutional : Awake, interactive, not in distress Neck : Normal inspection, Supple Cardiovascular : RRR, no JVP, no lower extremity edema Respiratory : good bilateral air entry, basal fine crackles, wheezes or rhonchi Gastrointestinal: soft, lax, Normal bowel sounds, Non tender Skin : Warm, Dry Skeletal: Lt BKA with wound covered w dressing Neurological : Alert & oriented x3, No focal deficit Objective Data Active Medications Albuterol Sulfate (Albuterol Sulfate (0.083%) 2.5 Mg/3 Ml Vial.Neb) 2.5 mg INHALE Q2H PRN PRN Reason: Wheezing Albuterol/Ipratropium (Albuterol/Iprat 2.5/0.5mg 3 Ml Ampul.Neb) 3 ml INHALE Q6H [facility] Last Admin: 02/17/23 07:46 Dose: Not Given Documented By: SANIYA Non-Admin Reason: Patient Refused Aspirin (Aspirin 81 Mg Tab.Chew) 81 mg PO DAILY [facility] Last Admin: 02/17/23 09:41 Dose: 81 mg Documented By: MISHA Atorvastatin Calcium (Atorvastatin Calcium 80 Mg Tablet) 80 mg PO BEDTIME [facility] Last Admin: 02/16/23 19:52 Dose: Not Given Documented By: LORE Non-Admin Reason: NPO Carvedilol (Carvedilol 3.125 Mg Tablet) 3.125 mg PO BID [facility]; Protocol Last Admin: 02/17/23 09:41 Dose: 3.125 mg Documented By: MISHA Clopidogrel Bisulfate (Clopidogrel Bisulfate 75 Mg Tablet) 75 mg PO DAILY [facility] Last Admin: 02/17/23 09:41 Dose: 75 mg Documented By: MISHA Dextrose (Dextrose 50 % 25 Gm/50 Ml Syringe) 25 gm IVPUSH Q15M PRN; Protocol PRN Reason: per Hypoglycemia Standing Ord. Furosemide (Furosemide 40 Mg Tablet) 40 mg PO BID@0900,1800 [facility]; Protocol Glucose (Glucose Gel 15 Gm Gel..Gram.) 15 gm PO Q15M PRN; Protocol PRN Reason: per Hypoglycemia Standing Ord. Heparin Sodium (Porcine) (Heparin Sodium,Porcine 5,000 Unit/Ml Vial) 5,000 unit SUBCUT Q12H [facility] Last Admin: 02/16/23 08:44 Dose: Not Given Documented By: LIAN Non-Admin Reason: Physician Held Med Hydromorphone HCl (Hydromorphone Hcl 0.5 Mg/0.5 Ml Syringe) 0.5 mg IVPUSH Q4H PRN; Protocol PRN Reason: Pain, Moderate(Pain Scale 4-6) Propofol (Diprivan) 1,000 mg in 100 mls @ 0 mls/hr IVCONT .Q0M [facility]; Protocol Last Titration: 02/15/23 11:00 Dose: Infused Documented By: FOSTER Vancomycin HCl 500 mg/ Sodium (Chloride) 110 mls @ 110 mls/hr IV Q24H [facility] Last Infusion: 02/17/23 13:07 Dose: Infused Documented By: MISHA Cefepime HCl 1 gm/ Sodium (Chloride) 50 mls @ 100 mls/hr IV Q12H [facility] Last Infusion: 02/17/23 12:06 Dose: Infused Documented By: MIHSA Dextrose (D5w) 1,000 mls @ 125 mls/hr IVCONT .Q8H [facility] Stop: 02/17/23 16:29 Last Admin: 02/17/23 09:19 Dose: 125 mls/hr Documented By: MISHA Insulin Human Lispro (Insulin Lispro 100 Unit/Ml 3 Ml Vial) 0 unit SUBCUT Q6H [facility]; Protocol Last Admin: 02/17/23 12:06 Dose: 8 unit Documented By: MISHA Pharmacy Consult (Consult Rx Vancomycin Dosing) 1 each MISCELLANE DAILY PRN PRN Reason: Consult order Prednisone (Prednisone 20 Mg Tablet) 40 mg PO DAILY [facility] Labs 02/17/23 04:45 02/17/23 15:16 Labs: Laboratory Results - last 24 hr 02/16/23 02/17/23 02/17/23 18:20 00:16 04:45 MCV 68.2 L MCH 19.7 L MCHC 28.8 L RDW 23.9 H Plt Count 92 L MPV Not Reportable Absolute Nucleated RBC 0.040 H Nucleated RBC % (auto) 0.5 H Anion Gap 15 Estim Creat Clear Calc 34.3 Estimated GFR 28 POC Glucose 229 H 273 H Random Glucose 265 H Calcium 8.9 Random Vancomycin 02/17/23 02/17/23 02/17/23 05:58 09:16 11:56 MCV MCH MCHC RDW Plt Count MPV Absolute Nucleated RBC Nucleated RBC % (auto) Anion Gap Estim Creat Clear Calc Estimated GFR POC Glucose 257 H 316 H Random Glucose Calcium Random Vancomycin 17.9 Assessment and Plan (1) Pulmonary edema: Status: Acute (2) Bilateral pleural effusion: Status: Acute (3) Cardiac arrest: Status: Acute (4) Acute hypoxemic respiratory failure: Status: Acute Plan Patient is a 52 Y F w/ multiple comorbidities including DM, c/b chronic foot wound s/p L BKA, CAD, s/p LAD stent, c/b CHF, COPD, asthma, p/t ED on 02/14 w/ diffuse pain, suffered PEA arrest, w/ ROSC w/in 15 minutes, arrest thought to be d/t hypoxia, of unclear etiology, intubated, admitted ICU and extubated. # PEA Arrest s\p ROSC post CPR unclear etiology, thought to be d/t hypoxia Blood cultures from admission still negative # IRAIS 2/2 PEA arrest; Hold Lasix I\O monitor BMP # thrombocytopenia Improved , follow cbc # prior history of endocarditis follow-up repeat blood cultures, no growth to date echocardiogram demonstrating LVEF 10%, unchanged from before, not suggestion of endocarditis Keep on Vancomycin and Cefepime pending ID eval # Wound dehiscence To be followed by surgery dressing for now # Tty-wyqdepc-phdmpookf diabetes mellitus sliding scale insulin reduce home Lantus # Congestive heart failure with reduced ejection fraction. Continue Coreg Hold furosemide today Not on AIDAN/ARB. # Coronary artery disease status post stent to proximal LAD Continue beta-connor, statin and Plavix # COPD. No exacerbation during admission. Continue home inhalers #? Essential hypertension.? Continue home antihypertensives # Tobacco use disorder Counseled regarding cessation.?Refused nicotine patch # Microcytic anemia Stable # Paroxysmal atrial fibrillation On Eliquis DVT prophylaxis Eliquis Admit as inpatient and will require overnight hospital stay for IV antibiotics.? Specialist consult pending Time Spent With Patient Time: Total time managing care of this patient today ____ minutes. Quality Stroke Does the patient have a stroke diagnosis?: No VTE Prior VTE?: No VTE Risk Level:: Medical - moderate - high VTE Device Contraindication: N/A - Device Ordered VTE Drug Contraindication: N/A - Med Ordered
[2023-02-17 16:16] LABS: Anion Gap 12 (12-20); Blood Urea Nitrogen 58 mg/dL (9-16); Calcium 8.8 mg/dL (8.4-10.2); Carbon Dioxide 30 mmol/L (22-29); Chloride 105 mmol/L (96-108); Creatinine Clr Calc Pharmacy 38.1; Estimated Glomerular Filt Rate 31; Glucose Random 295 mg/dL (60-115); Sodium 144 mmol/L (135-145)
[2023-02-17 16:51] LABS: Glucose, Whole Blood 307 mg/dL (60-115)
[2023-02-17] MEDS: Apixaban 5 MG TABLET PO ×2 (16:53→20:05)
[2023-02-17] MEDS: Atorvastatin Calcium 80 MG TABLET PO (20:05)
[2023-02-17] MEDS: HYDROmorphone HCl 0.5 MG/0.5 ML SYRINGE IVPUSH (21:01)
[2023-02-17 22:47] LABS: Glucose, Whole Blood 298 mg/dL (60-115)
[2023-02-17] MEDS: LORazepam 2 MG/ML VIAL 0.5 MG IVPUSH (23:46)
[2023-02-18] VITALS (7 sets, daily range): BP systolic 136–161; BP diastolic 72–99; PULSE 70–100; RESP 14–22; TEMP 36.1–36.7; O2SAT 92–100
[2023-02-18] MEDS: HYDROmorphone HCl 0.5 MG/0.5 ML SYRINGE IVPUSH ×2 (03:01→07:07)
[2023-02-18 07:17] LABS: Glucose, Whole Blood 293 mg/dL (60-115)
[2023-02-18] MEDS: Insulin Lispro 100 UNIT/ML 3 ML VIAL SUBCUT ×4 (07:48→20:50)
[2023-02-18] MEDS: carvediloL 3.125 MG TABLET PO ×2 (07:49→20:40)
[2023-02-18] MEDS: predniSONE 20 MG TABLET 40 MG PO (07:49)
[2023-02-18] MEDS: Furosemide 40 MG TABLET PO (07:49)
[2023-02-18] MEDS: Apixaban 5 MG TABLET PO ×2 (07:49→20:40)
[2023-02-18] MEDS: Clopidogrel Bisulfate 75 MG TABLET PO (07:49)
[2023-02-18] MEDS: Albuterol/Iprat 2.5/0.5MG 3 ML AMPUL.NEB INHALE ×2 (07:59→20:53)
[2023-02-18] MEDS: Fluticasone/Vilanterol 100/25 BLST.W.DEV 1 PUFF INHALE (07:59)
[2023-02-18 09:34] LABS: Vancomycin Random 13.8 mcg/mL (15-20)
[2023-02-18 09:35] LABS: Anion Gap 12 (12-20); Blood Urea Nitrogen 60 mg/dL (9-16); Calcium 9.2 mg/dL (8.4-10.2); Carbon Dioxide 31 mmol/L (22-29); Chloride 106 mmol/L (96-108); Creatinine Clr Calc Pharmacy 44.9; Estimated Glomerular Filt Rate 38; Glucose Random 286 mg/dL (60-115); Potassium 3.2 mmol/L (3.3-5.1); Sodium 146 mmol/L (135-145)
[2023-02-18 11:04] LABS: Glucose, Whole Blood 276 mg/dL (60-115)
[2023-02-18] MEDS: oxyCODONE HCl Immed Release 5 MG TABLET PO (11:43)
[2023-02-18] MEDS: Baclofen 10 MG TABLET PO ×2 (11:44→20:40)
[2023-02-18] MEDS: Potassium Chloride Packet 20 MEQ PACKET 40 MEQ PO (11:45)
[2023-02-18] MEDS: vancomycin HCL 500 MG in 0.9 % Sodium Chloride 100 ML 110 MG IV (11:45)
[2023-02-18] MEDS: cefEPime HCl 1 GM in 0.9 % Sodium Chloride 50 ML IV ×2 (12:14→23:19)
--- NOTE | 2023-02-18 13:39 | HO.PM.IMPN ---
Subjective Subjective Date of Service: 02/18/23 Interval History: Seen and evaluated this morning More alert and interactive having neck and chest muscular pain post CPR Denies any fever or chills Hypernatremic and hypokalemic , improving kidney function Review of Systems Review of Systems: Yes all other systems are reviewed and are negative Physical Exam Vital Signs: Vital Signs: Last Vital Signs Temp 97.0 F 02/18/23 11:25 Pulse 99 02/18/23 11:25 Resp 20 02/18/23 11:25 BP 161/94 H 02/18/23 11:25 Pulse Ox 99 02/18/23 11:25 O2 Del Method Nasal Cannula 02/18/23 11:25 O2 Flow Rate 2 02/18/23 11:25 FiO2 25 02/16/23 10:00 BMI result Body Mass Index 30.2 Const: Other: Constitutional : Awake, interactive, not in distress Neck : Normal inspection, Supple Cardiovascular : RRR, no JVP, no lower extremity edema Respiratory : good bilateral air entry, basal fine crackles, wheezes or rhonchi Gastrointestinal: soft, lax, Normal bowel sounds, Non tender Skin : Warm, Dry Skeletal: Lt BKA with wound covered w dressing Neurological : Alert & oriented x3, No focal deficit Objective Data Active Medications Acetaminophen (Acetaminophen 325 Mg Tablet) 975 mg PO TID [facility] Last Admin: 02/18/23 11:44 Dose: Not Given Documented By: MISHA Non-Admin Reason: Patient Refused Albuterol Sulfate (Albuterol Sulfate (0.083%) 2.5 Mg/3 Ml Vial.Neb) 2.5 mg INHALE Q2H PRN PRN Reason: Wheezing Albuterol/Ipratropium (Albuterol/Iprat 2.5/0.5mg 3 Ml Ampul.Neb) 3 ml INHALE Q6H [facility] Last Admin: 02/18/23 07:59 Dose: 3 ml Documented By: SANIYA Apixaban (Apixaban 5 Mg Tablet) 5 mg PO BID [facility] Last Admin: 02/18/23 07:49 Dose: 5 mg Documented By: MISHA Atorvastatin Calcium (Atorvastatin Calcium 80 Mg Tablet) 80 mg PO BEDTIME [facility] Last Admin: 02/17/23 20:05 Dose: 80 mg Documented By: ABDIRAHMAN Baclofen (Baclofen 10 Mg Tablet) 10 mg PO BID [facility] Last Admin: 02/18/23 11:44 Dose: 10 mg Documented By: MISHA Carvedilol (Carvedilol 3.125 Mg Tablet) 3.125 mg PO BID [facility]; Protocol Last Admin: 02/18/23 07:49 Dose: 3.125 mg Documented By: MISHA Clopidogrel Bisulfate (Clopidogrel Bisulfate 75 Mg Tablet) 75 mg PO DAILY [facility] Last Admin: 02/18/23 07:49 Dose: 75 mg Documented By: MISHA Dextrose (Dextrose 50 % 25 Gm/50 Ml Syringe) 25 gm IVPUSH Q15M PRN; Protocol PRN Reason: per Hypoglycemia Standing Ord. Fluticasone/Vilanterol (Fluticasone/Vilanterol 100/25 Blst.W.Dev) 1 puff INHALE RDAILY [facility] Last Admin: 02/18/23 07:59 Dose: 1 puff Documented By: SANIYA Furosemide (Furosemide 40 Mg Tablet) 40 mg PO DAILY [facility]; Protocol Glucose (Glucose Gel 15 Gm Gel..Gram.) 15 gm PO Q15M PRN; Protocol PRN Reason: per Hypoglycemia Standing Ord. Propofol (Diprivan) 1,000 mg in 100 mls @ 0 mls/hr IVCONT .Q0M [facility]; Protocol Last Titration: 02/15/23 11:00 Dose: Infused Documented By: FOSTER Vancomycin HCl 500 mg/ Sodium (Chloride) 110 mls @ 110 mls/hr IV Q24H [facility] Last Infusion: 02/18/23 13:00 Dose: Infused Documented By: MISHA Cefepime HCl 1 gm/ Sodium (Chloride) 50 mls @ 100 mls/hr IV Q12H [facility] Last Infusion: 02/18/23 12:59 Dose: Infused Documented By: MISHA Insulin Human Lispro (Insulin Lispro 100 Unit/Ml 3 Ml Vial) 0 unit SUBCUT QIDACHS [facility]; Protocol Last Admin: 02/18/23 11:46 Dose: 6 unit Documented By: MISHA Oxycodone HCl (Oxycodone Hcl Immed Release 5 Mg Tablet) 5 mg PO Q6H PRN PRN Reason: Pain, Severe (Pain Scale 7-10) Last Admin: 02/18/23 11:43 Dose: 5 mg Documented By: MISHA Pharmacy Consult (Consult Rx Vancomycin Dosing) 1 each MISCELLANE DAILY PRN PRN Reason: Consult order Prednisone (Prednisone 20 Mg Tablet) 40 mg PO DAILY [facility] Last Admin: 02/18/23 07:49 Dose: 40 mg Documented By: MISHA Tiotropium Crawford (Tiotropium Crawford 2.5 Mcg Inhaler) 2 puff INHALE RDAILY [facility] Last Admin: 02/18/23 07:59 Dose: 2 puff Documented By: SANIYA Labs 02/17/23 04:45 02/18/23 09:10 Labs: Laboratory Results - last 24 hr 02/17/23 02/17/23 02/17/23 15:16 16:48 22:42 Anion Gap 12 Estim Creat Clear Calc 38.1 Estimated GFR 31 POC Glucose 307 H 298 H Random Glucose 295 H Calcium 8.8 Random Vancomycin 02/18/23 02/18/23 02/18/23 07:12 09:10 11:00 Anion Gap 12 Estim Creat Clear Calc 44.9 Estimated GFR 38 POC Glucose 293 H 276 H Random Glucose 286 H Calcium 9.2 Random Vancomycin 13.8 L Assessment and Plan (1) Bilateral pleural effusion: Status: Acute (2) Acute hypoxemic respiratory failure: Status: Acute (3) Cardiac arrest: Status: Acute (4) Non-healing amputation site: Status: Acute (5) IRAIS (acute kidney injury): Status: Acute Plan Patient is a 52 Y F w/ multiple comorbidities including DM, c/b chronic foot wound s/p L BKA, CAD, s/p LAD stent, c/b CHF, COPD, asthma, p/t ED on 02/14 w/ diffuse pain, suffered PEA arrest, w/ ROSC w/in 15 minutes, arrest thought to be d/t hypoxia, of unclear etiology, intubated, admitted ICU and extubated. # PEA Arrest s\p ROSC post CPR unclear etiology, thought to be d/t hypoxia Blood cultures from admission still negative # IRAIS 2/2 PEA arrest; improving restart Lasix lower dose I\O monitor BMP # thrombocytopenia Improved , follow cbc # prior history of endocarditis follow-up repeat blood cultures, no growth to date echocardiogram demonstrating LVEF 10%, unchanged from before, not suggestion of endocarditis Keep on Vancomycin and Cefepime pending ID eval # Chest pain Muscuoskeletal post CPR , use Tylenol and Baclofen PRN narcotics # Wound dehiscence To be followed by surgery dressing for now # Wgo-uewpvyp-rphanikve diabetes mellitus sliding scale insulin reduce home Lantus # Congestive heart failure with reduced ejection fraction. Continue Coreg furosemide Not on AIDAN/ARB. # Coronary artery disease status post stent to proximal LAD Continue beta-connor, statin and Plavix # COPD. No exacerbation during admission. Continue home inhalers #? Essential hypertension.? Continue home antihypertensives # Tobacco use disorder Counseled regarding cessation.?Refused nicotine patch # Microcytic anemia Stable # Paroxysmal atrial fibrillation On Eliquis DVT prophylaxis Eliquis Admit as inpatient and will require overnight hospital stay for IV antibiotics for presumed IE, IRAIS pending safe discharge plan Time Spent With Patient Time: Total time managing care of this patient today ____ minutes. Quality Stroke Does the patient have a stroke diagnosis?: No VTE Prior VTE?: No VTE Risk Level:: Medical - moderate - high VTE Device Contraindication: N/A - Device Ordered VTE Drug Contraindication: N/A - Med Ordered
[2023-02-18 16:01] LABS: Glucose, Whole Blood 245 mg/dL (60-115)
--- NOTE | 2023-02-18 16:12 | P.CDIM_ITS ---
PROVIDER RESPONSE TEXT: To clarify, the appropriate diagnosis supported by the clinical indicators: Pneumonia: suspected QUERY TEXT: PHYSICIAN'S DOCUMENTATION REQUEST Date of Query: 02/17/2023 10:28 AM EDT Patient Name: Keisha Chadwick Admit Date: 02/14/2023 Dear Christoph Anne, A review of the medical record indicates additional documentation may be needed. Please review below and update the documentation accordingly. Clinical Indicators: Chest CT 02/14 - Bilateral lower lung field consolidation/infiltrates likely a combination of pneumonia and atelectasis.. Based on the above, could you clarify in the Progress Notes further specificity regarding the pneumon ia: (even if specific organism may not be known)? Pneumonia treating, not treating, resolved, suspected, probable, possible etc. Other please specify Other (explain)Clinically unable to determine (explain)Thank you, Mahi Nielson, CCS, CDIS Use of terms such as suspected, likely, concern for, or probable (associated with a specific diagnosi s that is being evaluated, monitored, or treated as if it exists) are acceptable and can be coded in the inpatient se tting, when documented at the time of discharge. Please use your independent medical judgment in providing your response. THIS QUERY IS PART OF THE PERMANENT MEDICAL RECORD
--- NOTE | 2023-02-18 16:12 | P.CDIM_ITS ---
PROVIDER RESPONSE TEXT: To clarify, the appropriate diagnosis supported by the clinical indicators: Systolic QUERY TEXT: PHYSICIAN'S DOCUMENTATION REQUEST Date of Query: 02/17/2023 11:40 AM EDT Patient Name: Keisha Chadwick Admit Date: 02/14/2023 Dear Christoph Anne, A review of the medical record indicates additional documentation may be needed. Please review below and update the documentation accordingly. Clinical Indicators: H&P 02/13 - Chief complaint: Acute respiratory failure, CHF, Endocarditis Acute on chronic Congestive heart failure BNP 3600 H redness and swelling both legs, chest discomfort IV Furosemide Please provide further specificity regarding the most likely type of CHF you are evaluating, treating , or monitoring. Systolic Diastolic Combined Systolic/Diastolic Other (explain)Clinically unable to determine (explain)Thank you, Mahi Nielson, CCS, CDIS Use of terms such as suspected, likely, concern for, or probable (associated with a specific diagnosi s that is being evaluated, monitored, or treated as if it exists) are acceptable and can be coded in the inpatient se tting, when documented at the time of discharge. Please use your independent medical judgment in providing your response. THIS QUERY IS PART OF THE PERMANENT MEDICAL RECORD
[2023-02-18] MEDS: Morphine Sulfate 2 MG/ML CARTRIDGE IVPUSH (19:23)
[2023-02-18 20:15] LABS: Glucose, Whole Blood 262 mg/dL (60-115)
[2023-02-18] MEDS: Acetaminophen 325 MG TABLET 975 MG PO (20:40)
[2023-02-18] MEDS: Atorvastatin Calcium 80 MG TABLET PO (20:40)
[2023-02-19] VITALS (7 sets, daily range): BP systolic 140–166; BP diastolic 70–94; PULSE 80–95; RESP 16–20; TEMP 36.2–36.7; O2SAT 96–100
[2023-02-19] MEDS: Morphine Sulfate 2 MG/ML CARTRIDGE IVPUSH ×2 (01:27→08:36)
[2023-02-19 07:17] LABS: Glucose, Whole Blood 166 mg/dL (60-115)
[2023-02-19] MEDS: Insulin Lispro 100 UNIT/ML 3 ML VIAL SUBCUT ×4 (08:28→21:12)
[2023-02-19] MEDS: Furosemide 40 MG TABLET PO (08:29)
[2023-02-19] MEDS: Clopidogrel Bisulfate 75 MG TABLET PO (08:29)
[2023-02-19] MEDS: Fluticasone/Vilanterol 100/25 BLST.W.DEV 1 PUFF INHALE (08:29)
[2023-02-19] MEDS: Albuterol/Iprat 2.5/0.5MG 3 ML AMPUL.NEB INHALE (08:30)
[2023-02-19] MEDS: Apixaban 5 MG TABLET PO ×2 (08:31→21:11)
[2023-02-19] MEDS: predniSONE 20 MG TABLET 40 MG PO (08:31)
[2023-02-19] MEDS: carvediloL 3.125 MG TABLET PO ×2 (08:31→21:11)
[2023-02-19] MEDS: Baclofen 10 MG TABLET PO (08:31)
[2023-02-19 09:31] LABS: Hematocrit 37.3 % (37.0-47.0); Hemoglobin 10.5 g/dl (12.0-16.0); Mean Corpuscular HGB Conc 28.2 g/dl (31.0-35.0); Mean Corpuscular Hemoglobin 19.8 pg (27.0-33.0); Mean Corpuscular Volume 70.4 fL (80.0-98.0); NRBC Pct Auto 0.3 /100WBC (0.0-0.2); Red Cell Distribution Width 23.7 % (11.0-16.0); White Blood Count 6.2 X10*3/uL (4.8-10.8)
[2023-02-19 09:32] LABS: Platelet Count 99 X10*3/uL (160-400)
[2023-02-19 09:44] LABS: Anion Gap 12 (12-20); Blood Urea Nitrogen 55 mg/dL (9-16); Calcium 9.7 mg/dL (8.4-10.2); Carbon Dioxide 29 mmol/L (22-29); Chloride 109 mmol/L (96-108); Creatinine Clr Calc Pharmacy 56.4; Estimated Glomerular Filt Rate 49; Glucose Random 193 mg/dL (60-115); Potassium 3.2 mmol/L (3.3-5.1); Sodium 147 mmol/L (135-145)
[2023-02-19 10:01] LABS: Vancomycin Random 12.7 mcg/mL (15-20)
[2023-02-19] MEDS: Dextrose 5 % 1,000 ML 125 ML IVCONT ×2 (11:45→18:57)
[2023-02-19] MEDS: Potassium Chloride/H20 10 MEQ/100 ML PIGGYBACK 100 MEQ IV ×2 (11:46→14:02)
[2023-02-19 11:57] LABS: Glucose, Whole Blood 186 mg/dL (60-115)
[2023-02-19] MEDS: cefEPime HCl 1 GM in 0.9 % Sodium Chloride 50 ML IV (13:11)
[2023-02-19] MEDS: vancomycin HCL 750 MG in 0.9 % Sodium Chloride 250 ML 265 MG IV (14:07)
[2023-02-19] MEDS: Morphine Sulfate 2 MG/ML CARTRIDGE 1 MG IVPUSH ×2 (14:59→21:53)
--- NOTE | 2023-02-19 15:20 | P.PNIM_ITS ---
Subjective Subjective Date of Service: 02/19/23 Interval History: Seen and evaluated this morning More alert and interactive improved pain control still Hypernatremic and hypokalemic , improving kidney function Denies any fever or chills Review of Systems Review of Systems: Yes all other systems are reviewed and are negative Physical Exam 2 Vital Signs: Vital Signs: Last Vital Signs Temp 98.0 F 02/19/23 15:09 Pulse 93 02/19/23 15:09 Resp 20 02/19/23 15:09 BP 157/94 H 02/19/23 15:09 Pulse Ox 96 02/19/23 15:09 O2 Del Method Room Air 02/19/23 15:09 O2 Flow Rate 1 02/19/23 07:50 FiO2 25 02/16/23 10:00 BMI result Body Mass Index 30.2 Const: Other: Constitutional : Awake, interactive, not in distress Neck : Normal inspection, Supple Cardiovascular : RRR, no JVP, no lower extremity edema Respiratory : good bilateral air entry, basal fine crackles, wheezes or rhonchi Gastrointestinal: soft, lax, Normal bowel sounds, Non tender Skin : Warm, Dry Skeletal: Lt BKA with wound covered w dressing Neurological : Alert & oriented x3, No focal deficit Objective Data Active Medications Acetaminophen (Acetaminophen 325 Mg Tablet) 975 mg PO TID [facility] Last Admin: 02/19/23 14:59 Dose: Not Given Documented By: MISHA Non-Admin Reason: Patient Refused Albuterol Sulfate (Albuterol Sulfate (0.083%) 2.5 Mg/3 Ml Vial.Neb) 2.5 mg INHALE Q2H PRN PRN Reason: Wheezing Albuterol/Ipratropium (Albuterol/Iprat 2.5/0.5mg 3 Ml Ampul.Neb) 3 ml INHALE Q6H [facility] Last Admin: 02/19/23 08:30 Dose: 3 ml Documented By: GILES Apixaban (Apixaban 5 Mg Tablet) 5 mg PO BID [facility] Last Admin: 02/19/23 08:31 Dose: 5 mg Documented By: MISHA Atorvastatin Calcium (Atorvastatin Calcium 80 Mg Tablet) 80 mg PO BEDTIME [facility] Last Admin: 02/18/23 20:40 Dose: 80 mg Documented By: ABDIRAHMAN Baclofen (Baclofen 10 Mg Tablet) 10 mg PO BID PRN PRN Reason: Muscle pain\stiffness Carvedilol (Carvedilol 3.125 Mg Tablet) 3.125 mg PO BID [facility]; Protocol Last Admin: 02/19/23 08:31 Dose: 3.125 mg Documented By: MISHA Clopidogrel Bisulfate (Clopidogrel Bisulfate 75 Mg Tablet) 75 mg PO DAILY [facility] Last Admin: 02/19/23 08:29 Dose: 75 mg Documented By: MISHA Dextrose (Dextrose 50 % 25 Gm/50 Ml Syringe) 25 gm IVPUSH Q15M PRN; Protocol PRN Reason: per Hypoglycemia Standing Ord. Fluticasone/Vilanterol (Fluticasone/Vilanterol 100/25 Blst.W.Dev) 1 puff INHALE RDAILY [facility] Last Admin: 02/19/23 08:29 Dose: 1 puff Documented By: GILES Furosemide (Furosemide 40 Mg Tablet) 40 mg PO DAILY [facility]; Protocol Last Admin: 02/19/23 08:29 Dose: 40 mg Documented By: MISHA Glucose (Glucose Gel 15 Gm Gel..Gram.) 15 gm PO Q15M PRN; Protocol PRN Reason: per Hypoglycemia Standing Ord. Cefepime HCl 1 gm/ Sodium (Chloride) 50 mls @ 100 mls/hr IV Q12H [facility] Last Infusion: 02/19/23 13:49 Dose: Infused Documented By: MISHA Dextrose (D5w) 1,000 mls @ 125 mls/hr IVCONT .Q8H [facility] Last Admin: 02/19/23 11:45 Dose: 125 mls/hr Documented By: MISHA Vancomycin HCl 750 mg/ Sodium (Chloride) 265 mls @ 265 mls/hr IV Q24H [facility] Last Admin: 02/19/23 14:07 Dose: 265 mls/hr Documented By: MISHA Insulin Human Lispro (Insulin Lispro 100 Unit/Ml 3 Ml Vial) 0 unit SUBCUT QIDACHS [facility]; Protocol Last Admin: 02/19/23 11:59 Dose: 2 unit Documented By: MISHA Morphine Sulfate (Morphine Sulfate 2 Mg/Ml Cartridge) 1 mg IVPUSH Q6H PRN; Protocol PRN Reason: Pain, Severe (Pain Scale 7-10) Last Admin: 02/19/23 14:59 Dose: 1 mg Documented By: MISHA Ondansetron HCl (Ondansetron Hcl 4 Mg/2 Ml Vial) 4 mg IVPUSH Q8H PRN PRN Reason: Nausea and Vomiting Oxycodone HCl (Oxycodone Hcl Immed Release 5 Mg Tablet) 5 mg PO Q6H PRN PRN Reason: Pain, Severe (Pain Scale 7-10) Last Admin: 02/18/23 11:43 Dose: 5 mg Documented By: MISHA Pharmacy Consult (Consult Rx Vancomycin Dosing) 1 each MISCELLANE DAILY PRN PRN Reason: Consult order Prednisone (Prednisone 20 Mg Tablet) 40 mg PO DAILY [facility] Last Admin: 02/19/23 08:31 Dose: 40 mg Documented By: MISHA Tiotropium Ceres (Tiotropium Ceres 2.5 Mcg Inhaler) 2 puff INHALE RDAILY [facility] Last Admin: 02/19/23 08:29 Dose: 2 puff Documented By: GILES Labs 02/19/23 09:23 02/19/23 09:23 Labs: Laboratory Results - last 24 hr 02/18/23 02/18/23 02/19/23 15:57 20:11 07:13 MCV MCH MCHC RDW Plt Count MPV Absolute Nucleated RBC Nucleated RBC % (auto) Anion Gap Estim Creat Clear Calc Estimated GFR POC Glucose 245 H 262 H 166 H Random Glucose Calcium Random Vancomycin 02/19/23 02/19/23 09:23 11:53 MCV 70.4 L MCH 19.8 L MCHC 28.2 L RDW 23.7 H Plt Count 99 L MPV Not Reportable Absolute Nucleated RBC 0.020 H Nucleated RBC % (auto) 0.3 H Anion Gap 12 Estim Creat Clear Calc 56.4 Estimated GFR 49 POC Glucose 186 H Random Glucose 193 H Calcium 9.7 Random Vancomycin 12.7 L Microbiology Microbiology Results: Microbiology 02/13/23 19:56 Blood Culture - Final Blood - Venous No growth after 5 days. 02/13/23 20:06 Blood Culture - Final Blood - Venous No growth after 5 days. Assessment and Plan (1) Acute hypernatremia: Status: Acute (2) Bilateral pleural effusion: Status: Acute (3) Cardiac arrest: Status: Acute (4) Acute hypoxemic respiratory failure: Status: Acute Plan Patient is a 52 Y F w/ multiple comorbidities including DM, c/b chronic foot wound s/p L BKA, CAD, s/p LAD stent, c/b CHF, COPD, asthma, p/t ED on 02/14 w/ diffuse pain, suffered PEA arrest, w/ ROSC w/in 15 minutes, arrest thought to be d/t hypoxia, of unclear etiology, intubated, admitted ICU and extubated. # PEA Arrest s\p ROSC post CPR unclear etiology, thought to be d/t hypoxia Blood cultures from admission still negative # IRAIS 2/2 PEA arrest; improving , hold nephrotoxic, increase po intake I\O monitor BMP # thrombocytopenia Improved , follow cbc # Acute hypernatremia Na of 147 this morning D5W and increase free water intake follow BMP # prior history of endocarditis follow-up repeat blood cultures, no growth to date echocardiogram demonstrating LVEF 10%, unchanged from before, not suggestion of endocarditis Keep on Vancomycin and Cefepime pending ID eval # Chest pain Muscuoskeletal post CPR , use Tylenol and Baclofen PRN narcotics # Wound dehiscence To be followed by surgery dressing for now # Xzp-veqqccz-jlzidsnbh diabetes mellitus sliding scale insulin reduce home Lantus # Congestive heart failure with reduced ejection fraction. Continue Coreg furosemide Not on AIDAN/ARB. # Coronary artery disease status post stent to proximal LAD Continue beta-connor, statin and Plavix # COPD. No exacerbation during admission. Continue home inhalers #? Essential hypertension.? Continue home antihypertensives # Tobacco use disorder Counseled regarding cessation.?Refused nicotine patch # Microcytic anemia Stable # Paroxysmal atrial fibrillation On Eliquis DVT prophylaxis Eliquis Admit as inpatient and will require overnight hospital stay for IV antibiotics for presumed IE, IRAIS pending safe discharge plan Time Spent With Patient Time: Total time managing care of this patient today ____ minutes. Quality Stroke Does the patient have a stroke diagnosis?: No VTE Prior VTE?: No VTE Risk Level:: Medical - moderate - high VTE Device Contraindication: N/A - Device Ordered VTE Drug Contraindication: N/A - Med Ordered
[2023-02-19 16:17] LABS: Glucose, Whole Blood 300 mg/dL (60-115)
[2023-02-19 17:00] LABS: Anion Gap 15 (12-20); Blood Urea Nitrogen 52 mg/dL (9-16); Calcium 8.4 mg/dL (8.4-10.2); Carbon Dioxide 26 mmol/L (22-29); Chloride 108 mmol/L (96-108); Creatinine Clr Calc Pharmacy 63.6; Estimated Glomerular Filt Rate 56; Glucose Random 339 mg/dL (60-115); Potassium 3.8 mmol/L (3.3-5.1); Sodium 145 mmol/L (135-145)
[2023-02-19 20:08] LABS: Glucose, Whole Blood 414 mg/dL (60-115)
[2023-02-19] MEDS: Acetaminophen 325 MG TABLET 975 MG PO (21:10)
[2023-02-19] MEDS: Insulin Lispro 100 UNIT/ML 3 ML VIAL 10 UNIT SUBCUT (21:12)
[2023-02-19] MEDS: Atorvastatin Calcium 80 MG TABLET PO (21:12)
--- NOTE | 2023-02-19 21:18 | P.CNID_ITS ---
History of Present Illness Data of Consult Service Date: 02/18/23 Requesting physician: Christoph Anne Primary Care Provider: Unknown Physician HPI Reason for consult: [facility]. She had been hospitalized here in the past and at [facility]. She went to [facility] and twice left AMA,from 01/17-01/18 and then 01/31-02/05. She was seen by ID,Dr Harinder Armando on 02/05. She has multiple pulmonary nodules on CT possibly septic emboli and was started on Vancomycin and Cefepime after ROB done there showed large mobile mass, aortic valve versus elastoma on 02/03. The plan was six weeks IV Vancomycin as well as Cefepime or Ertapenem or Ceftriaxone. She would be done with antibiotics on 03/15. She had negative bartonella serology and dont see HIV or Hepatitis C. She had left BKA and sees wound care for chronic nonhealing and thought possible infection from that although no OM seen and no organisms seen in blood cultures. She denies fever or chills. Review of Systems 2 Review of Systems: Yes all other systems are reviewed and are negative PMFSH Past Medical History Medical History (Updated 02/19/23 @ 21:35 by Angie Padilla MD) Aortic valve vegetation Back pain Septic pulmonary embolism Below-knee amputation of left lower extremity Coronary artery disease Hyperglycemia due to diabetes mellitus Cellulitis in diabetic foot PAD (peripheral artery disease) 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 Ischemic cardiomyopathy Diabetic foot infection Osteomyelitis Atrial tachycardia GERD (gastroesophageal reflux disease) Atherosclerotic cardiovascular disease Essential hypertension COPD (chronic obstructive pulmonary disease) Asthma Diabetes Hypertension Family History Family History Mother Hx of CABG Sister CAD (coronary artery disease) Family history: reviewed and not pertinent Surgical History Surgical History Status post below-knee amputation of left lower extremity (09/20/22) History of toe surgery (09/22/21) History of esophagogastroduodenoscopy (EGD) Social History Social History Household Members: Spouse Household Members Other:: 2 Housing: Apartment Do you presently have visiting nurse or other home services: Yes (twice a day) Unable to assess alcohol history related to: Refusing to respond Alcohol intake: former Patient Tobacco Use Status: Never used Tobacco Tobacco use type: Cigarette Cigarette Packs Per Day: 0.5 Cigarettes Per Day: 10.0 Years Smoked: since 8 years old Smoked in Last 30 Days: Yes e-Cigarette/Vaping Use: Never Used Second Hand Smoke Exposure: Yes Use of substances other than those prescribed or required for medical reasons: Unable to respond Substance Use Type: Painkillers Currently Displaying Signs/Symptoms of Drug Intoxication Withdrawal: No Advance Directives: Yes Advance Directives on File: Yes Advance Directives Date on File: 09/22/22 Nutrition Risks: On aspiration precautions Patient : No : No Poor oral hygiene: Yes service: No Current occupational status: disabled Meds Allergies Allergy/AdvReac Type Severity Reaction Status Date / Time Penicillins [PENICILLINS] Allergy Severe RASH Verified 02/13/23 18:33 amoxicillin [AMOXICILLIN] Allergy Intermediate HIVES Verified 02/13/23 18:33 perflutren [From Definity] AdvReac Back Pain Verified 02/13/23 18:33 Active Medications: Current Medications Acetaminophen (Acetaminophen 325 Mg Tablet) 975 mg PO TID [facility] Last Admin: 02/19/23 21:10 Dose: 975 mg Albuterol Sulfate (Albuterol Sulfate (0.083%) 2.5 Mg/3 Ml Vial.Neb) 2.5 mg INHALE Q2H PRN PRN Reason: Wheezing Albuterol/Ipratropium (Albuterol/Iprat 2.5/0.5mg 3 Ml Ampul.Neb) 3 ml INHALE Q6H [facility] Last Admin: 02/19/23 19:30 Dose: Not Given Apixaban (Apixaban 5 Mg Tablet) 5 mg PO BID [facility] Last Admin: 02/19/23 21:11 Dose: 5 mg Atorvastatin Calcium (Atorvastatin Calcium 80 Mg Tablet) 80 mg PO BEDTIME [facility] Last Admin: 02/19/23 21:12 Dose: 80 mg Baclofen (Baclofen 10 Mg Tablet) 10 mg PO BID PRN PRN Reason: Muscle pain\stiffness Carvedilol (Carvedilol 3.125 Mg Tablet) 3.125 mg PO BID [facility]; Protocol Last Admin: 02/19/23 21:11 Dose: 3.125 mg Clopidogrel Bisulfate (Clopidogrel Bisulfate 75 Mg Tablet) 75 mg PO DAILY [facility] Last Admin: 02/19/23 08:29 Dose: 75 mg Dextrose (Dextrose 50 % 25 Gm/50 Ml Syringe) 25 gm IVPUSH Q15M PRN; Protocol PRN Reason: per Hypoglycemia Standing Ord. Fluticasone/Vilanterol (Fluticasone/Vilanterol 100/25 Blst.W.Dev) 1 puff INHALE RDAILY [facility] Last Admin: 02/19/23 08:29 Dose: 1 puff Furosemide (Furosemide 40 Mg Tablet) 40 mg PO DAILY [facility]; Protocol Last Admin: 02/19/23 08:29 Dose: 40 mg Glucose (Glucose Gel 15 Gm Gel..Gram.) 15 gm PO Q15M PRN; Protocol PRN Reason: per Hypoglycemia Standing Ord. Cefepime HCl 1 gm/ Sodium (Chloride) 50 mls @ 100 mls/hr IV Q12H [facility] Last Infusion: 02/19/23 13:49 Dose: Infused Dextrose (D5w) 1,000 mls @ 125 mls/hr IVCONT .Q8H [facility] Last Admin: 02/19/23 18:57 Dose: 125 mls/hr Vancomycin HCl 750 mg/ Sodium (Chloride) 265 mls @ 265 mls/hr IV Q24H [facility] Last Infusion: 02/19/23 15:22 Dose: Infused Insulin Human Lispro (Insulin Lispro 100 Unit/Ml 3 Ml Vial) 0 unit SUBCUT QIDACHS [facility], [facility]; Protocol Last Admin: 02/19/23 21:12 Dose: 10 unit Morphine Sulfate (Morphine Sulfate 2 Mg/Ml Cartridge) 1 mg IVPUSH Q6H PRN; Protocol PRN Reason: Pain, Severe (Pain Scale 7-10) Last Admin: 02/19/23 14:59 Dose: 1 mg Ondansetron HCl (Ondansetron Hcl 4 Mg/2 Ml Vial) 4 mg IVPUSH Q8H PRN PRN Reason: Nausea and Vomiting Oxycodone HCl (Oxycodone Hcl Immed Release 5 Mg Tablet) 5 mg PO Q6H PRN PRN Reason: Pain, Severe (Pain Scale 7-10) Last Admin: 02/18/23 11:43 Dose: 5 mg Pharmacy Consult (Consult Rx Vancomycin Dosing) 1 each MISCELLANE DAILY PRN PRN Reason: Consult order Prednisone (Prednisone 20 Mg Tablet) 40 mg PO DAILY [facility] Last Admin: 02/19/23 08:31 Dose: 40 mg Tiotropium [place] (Tiotropium [place] 2.5 Mcg Inhaler) 2 puff INHALE RDAILY [facility] Last Admin: 02/19/23 08:29 Dose: 2 puff Home Medications Medication Instructions Recorded Confirmed Last Taken Type clopidogrel 75 mg tablet 75 mg PO DAILY 11/24/22 02/14/23 Unknown History nicotine 21 mg/24 hr daily 1 patch topical DAILY 11/26/22 02/14/23 Unknown History transdermal patch apixaban 5 mg tablet (Eliquis) 5 mg PO BID 01/11/23 02/14/23 Unknown History fluticasone propionate 115 2 puff inhalation BID 01/11/23 02/14/23 Unknown History mcg-salmeterol 21 mcg/actuation HFA inhaler glipizide 10 mg tablet 10 mg PO DAILY 01/11/23 02/14/23 Unknown History insulin glargine 100 unit/mL (3 20 unit subcut BID 01/11/23 02/14/23 Unknown History mL) subcutaneous pen (Lantus Solostar U-100 Insulin) Physical Exam 2 Vital Signs: Vital Signs: Last Vital Signs Temp 98.0 F 02/19/23 19:26 Pulse 93 02/19/23 19:26 Resp 20 02/19/23 19:26 BP 143/92 H 02/19/23 19:26 Pulse Ox 98 02/19/23 19:26 O2 Del Method Room Air 02/19/23 19:26 O2 Flow Rate 1 02/19/23 07:50 FiO2 25 02/16/23 10:00 BMI result Body Mass Index 30.2 Const: General: cooperative HEENT: Head: Yes normal to inspection Face and sinus: Yes normal facial exam Mouth: Normal oral and palatal mucosa present Teeth and gingiva: d entition normal Eyes: General: appearance normal, both eyes and all related structures P upils: Equal, round and reactive pupils present Resp: Effort & Inspection: normal respiratory effort Cardio: Rate: regular rate Rhythm: regular rhythm GI: Palpation (GI): Soft to palpation and nontender : General: Yes no CVA tenderness Back/Spine/Pelvis: Back: no CVA tenderness Skin: General skin exam: no rashes or lesions noted Neuro: General: moves all extremities Cranial nerves: Yes Equal, round and reactive pupils present Extrem: Other: left BKA with chronic rubor General: Yes normal to inspection Psych: Appearance: grossly normal Results Labs 02/19/23 09:23 02/19/23 16:08 Labs: Short CBC 02/19/23 Range/Units 09: WBC 6.2 (4.8-10.8) X10*3/uL Hgb 10.5 L (12.0-16.0) g/dl Hct 37.3 (37.0-47.0) % Plt Count 99 L (160-400) X10*3/uL BMP 02/19/23 02/19/23 09: 16:08 Sodium 147 H 145 Potassium 3.2 L 3.8 Chloride 109 H 108 Carbon Dioxide 29 26 BUN 55 H 52 H Creatinine 1.16 1.03 Calcium 9.7 8.4 D Microbiology Microbiology Results: Microbiology 02/13/23 19:56 Blood - Venous Blood Culture - Final No growth after 5 days. 02/13/23 20:06 Blood - Venous Blood Culture - Final No growth after 5 days. 02/13/23 Unknown Urine clean catch - Urine jimenez top Urine Culture - Final No growth. Assessment and Plan (1) Non-healing amputation site: Status: Acute (2) Infected wound: Status: Acute (3) Septic pulmonary embolism: Status: Acute (4) Aortic valve vegetation: Status: Acute Apparently there are septic emboli and heart valve mobile vegetation from recent [facility] stay. There are no specific bacteria. There is no pathology. Possible heart valve tumor ? elastoma This may be from chronic infection BKA left. Plan Likely continue Vancomycin and Cefepime for six weeks IV finish on 03/31. She can get PICC line at any time but would like our Cardiology to review ROB at [facility] done 02/03 to be sure it looks like infection. Also Vascular should evaluate for AKA because if left BKA site is not healing enough to cause large valve vegetations all infected bone needs to be removed and also needs six weeks IV antibiotics. Check HIV test (none here and none found at [facility]). Patient at very high risk for if keeps signing out AMA. Time Spent With Patient Time: Total time managing care of this patient today ____ minutes.
[2023-02-19] MEDS: LORazepam 2 MG/ML VIAL 0.5 MG IVPUSH (23:28)
[2023-02-20] VITALS: BP 160/88; PULSE 81; RESP 17; TEMP 36.2; O2SAT 94
--- NOTE | 2023-02-20 | ECG_ITS ---
Test Reason : long pause Blood Pressure : / mmHG Vent. Rate : 080 BPM Atrial Rate : 080 BPM P-R Int : 154 ms QRS Dur : 088 ms QT Int : 444 ms P-R-T Axes : 058 061 089 degrees QTc Int : 512 ms Normal sinus rhythm Low voltage QRS Nonspecific T wave abnormality Cannot rule out Anterior infarct (cited on or before 26-JAN-2023) Prolonged QT Abnormal ECG When compared with ECG of 14-FEB-2023 12:09, Nonspecific T wave abnormality now evident in Inferior leads Referred By: Christoph Anne Electronically Signed By:JARRED BARRETO
[2023-02-20] MEDS: cefEPime HCl 1 GM in 0.9 % Sodium Chloride 50 ML IV ×3 (00:34→23:58)
[2023-02-20] MEDS: oxyCODONE HCl Immed Release 5 MG TABLET PO ×2 (00:45→19:55)
[2023-02-20] MEDS: Dextrose 5 % 1,000 ML 125 ML IVCONT (03:18)
[2023-02-20 03:48] LABS: HIV AB/AG Nonreactive (Nonreactive); HIV Num 1 0.14 S/CO (0.00-0.99)
[2023-02-20 04:00] VITALS: PULSE 75; RESP 16; O2SAT 93
[2023-02-20 07:24] VITALS: BP 165/95; PULSE 77; RESP 20; TEMP 36; O2SAT 98
[2023-02-20 07:37] LABS: Anion Gap 14 (12-20); Blood Urea Nitrogen 43 mg/dL (9-16); Calcium 8.8 mg/dL (8.4-10.2); Carbon Dioxide 26 mmol/L (22-29); Chloride 106 mmol/L (96-108); Creatinine Clr Calc Pharmacy 73.6; Estimated Glomerular Filt Rate > 60; Glucose Random 294 mg/dL (60-115); Potassium 3.5 mmol/L (3.3-5.1); Sodium 142 mmol/L (135-145)
[2023-02-20 07:50] LABS: Glucose, Whole Blood 298 mg/dL (60-115)
[2023-02-20] MEDS: Acetaminophen 325 MG TABLET 975 MG PO ×2 (08:08→19:55)
[2023-02-20] MEDS: predniSONE 20 MG TABLET 40 MG PO (08:08)
[2023-02-20] MEDS: carvediloL 3.125 MG TABLET PO (08:09)
[2023-02-20] MEDS: Apixaban 5 MG TABLET PO ×2 (08:09→19:55)
[2023-02-20] MEDS: Morphine Sulfate 2 MG/ML CARTRIDGE 1 MG IVPUSH ×3 (08:09→23:56)
[2023-02-20] MEDS: Clopidogrel Bisulfate 75 MG TABLET PO (08:09)
[2023-02-20] MEDS: Insulin Lispro 100 UNIT/ML 3 ML VIAL SUBCUT ×3 (08:25→16:18)
--- NOTE | 2023-02-20 10:41 | PM.CNCAR ---
History of Present Illness History of Present Illness Date of Service: 02/20/23 Chief complaint: Acute resp failure, cardiac arrest, CHF Narrative: This is a cardiology consultation to evaluate the possibility of endocarditis as she had a recent [facility] transesophageal echocardiogram. Patient is known to our service as she is frequently consulted but unfortunately, she also signs out against medical advis, almost all the time. She was recently at [facility] and it seems that at that time there was a question of endocarditis and she underwent transesophageal echocardiogram. That had described echodensities on all 3 aortic valve cusps compatible vegetations or less likely fibroelastomas. Any case, it seems that she ate again signed out against medical advice. Subsequently, she got readmitted at [place] and per documentation, it seems she came few days ago with diffuse pain and then suffered PEA arrest, return of spontaneous circulation. Arrest thought to be from hypoxia, unclear etiology, then transferred to ICU, intubated and finally extubated. Now she is on the floor. She has somewhat of a hoarse voice but otherwise not offering any clear-cut complaints. Just a general feeling of being unwell. Review of Systems Review of Systems: Yes all other systems are reviewed and are negative Constitutional: Constitutional: Reports as per HPI and Reports no additional constitutional complaints Eyes: Eyes: Reports as per HPI and Denies no additional eye complaints ENT: Denies system reviewed and no additional complaints, except as documented and Reports as per HPI Cardiovascular: Cardiovascular: Reports as per HPI and Reports no additional cardiovascular complaints Respiratory: Respiratory: Reports as per HPI and Denies no additional respiratory complaints Gastrointestinal: Gastrointestinal: Reports as per HPI and Denies no additional gastrointestinal complaints Genitourinary: Genitourinary: Reports as per HPI Musculoskeletal: Musculoskeletal: Reports no additional musculoskeletal complaints and Reports as per HPI Integumentary/Breasts: Skin/Breast: Reports system reviewed and no additional complaints, except as docu Neurologic: Reports system reviewed and no additional complaints, except as documented and Reports as per HPI Psychiatric: Psychiatric: Reports no additional psychiatric complaints and Reports as per HPI Endocrine: Endocrine: Reports no additional endocrine complaints and Reports as per HPI Hematologic/Lymphatic: Hematologic/Lymphatic: Reports no additional hematologic/lymphatic complaints and Reports as per HPI Allergic/Immunologic: Allergic/Immunologic: Reports no additional allergic/immunologic complaints and Reports as per HPI [facility] Past Medical History Medical History (Updated 02/20/23 @ 10:49 by Chandana Dave MD) Ischemic cardiomyopathy Aortic valve vegetation Back pain Septic pulmonary embolism Below-knee amputation of left lower extremity Coronary artery disease Hyperglycemia due to diabetes mellitus Cellulitis in diabetic foot PAD (peripheral artery disease) 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 Diabetic foot infection Osteomyelitis Atrial tachycardia GERD (gastroesophageal reflux disease) Atherosclerotic cardiovascular disease Essential hypertension COPD (chronic obstructive pulmonary disease) Asthma Diabetes Hypertension Family History Family History Mother Hx of CABG Sister CAD (coronary artery disease) Family history: reviewed and not pertinent Surgical History Surgical History Status post below-knee amputation of left lower extremity (09/20/22) History of toe surgery (09/22/21) History of esophagogastroduodenoscopy (EGD) Social History Social History Household Members: Spouse Household Members Other:: 2 Housing: Apartment Do you presently have visiting nurse or other home services: Yes (twice a day) Unable to assess alcohol history related to: Refusing to respond Alcohol intake: former Patient Tobacco Use Status: Never used Tobacco Tobacco use type: Cigarette Cigarette Packs Per Day: 0.5 Cigarettes Per Day: 10.0 Years Smoked: since 8 years old Smoked in Last 30 Days: Yes e-Cigarette/Vaping Use: Never Used Second Hand Smoke Exposure: Yes Use of substances other than those prescribed or required for medical reasons: Unable to respond Substance Use Type: Painkillers Currently Displaying Signs/Symptoms of Drug Intoxication Withdrawal: No Advance Directives: Yes Advance Directives on File: Yes Advance Directives Date on File: 09/22/22 Nutrition Risks: On aspiration precautions Patient : No : No Poor oral hygiene: Yes service: No Current occupational status: disabled Meds Allergies Allergy/AdvReac Type Severity Reaction Status Date / Time Penicillins [PENICILLINS] Allergy Severe RASH Verified 02/13/23 18:33 amoxicillin [AMOXICILLIN] Allergy Intermediate HIVES Verified 02/13/23 18:33 perflutren [From Definity] AdvReac Back Pain Verified 02/13/23 18:33 Active Medications: Current Medications Acetaminophen (Acetaminophen 325 Mg Tablet) 975 mg PO TID [facility] Last Admin: 02/20/23 08:08 Dose: 975 mg Albuterol Sulfate (Albuterol Sulfate (0.083%) 2.5 Mg/3 Ml Vial.Neb) 2.5 mg INHALE Q2H PRN PRN Reason: Wheezing Albuterol/Ipratropium (Albuterol/Iprat 2.5/0.5mg 3 Ml Ampul.Neb) 3 ml INHALE Q6H [facility] Last Admin: 02/20/23 07:38 Dose: Not Given Apixaban (Apixaban 5 Mg Tablet) 5 mg PO BID [facility] Last Admin: 02/20/23 08:09 Dose: 5 mg Atorvastatin Calcium (Atorvastatin Calcium 80 Mg Tablet) 80 mg PO BEDTIME [facility] Last Admin: 02/19/23 21:12 Dose: 80 mg Baclofen (Baclofen 10 Mg Tablet) 10 mg PO BID PRN PRN Reason: Muscle pain\stiffness Carvedilol (Carvedilol 3.125 Mg Tablet) 3.125 mg PO BID [facility]; Protocol Last Admin: 02/20/23 08:09 Dose: 3.125 mg Clopidogrel Bisulfate (Clopidogrel Bisulfate 75 Mg Tablet) 75 mg PO DAILY [facility] Last Admin: 02/20/23 08:09 Dose: 75 mg Dextrose (Dextrose 50 % 25 Gm/50 Ml Syringe) 25 gm IVPUSH Q15M PRN; Protocol PRN Reason: per Hypoglycemia Standing Ord. Fluticasone/Vilanterol (Fluticasone/Vilanterol 100/25 Blst.W.Dev) 1 puff INHALE RDAILY [facility] Last Admin: 02/20/23 07:38 Dose: Not Given Furosemide (Furosemide 40 Mg Tablet) 40 mg PO DAILY [facility]; Protocol Last Admin: 02/19/23 08:29 Dose: 40 mg Glucose (Glucose Gel 15 Gm Gel..Gram.) 15 gm PO Q15M PRN; Protocol PRN Reason: per Hypoglycemia Standing Ord. Cefepime HCl 1 gm/ Sodium (Chloride) 50 mls @ 100 mls/hr IV Q12H [facility] Last Infusion: 02/20/23 01:17 Dose: Infused Dextrose (D5w) 1,000 mls @ 125 mls/hr IVCONT .Q8H [facility] Last Admin: 02/20/23 03:18 Dose: 125 mls/hr Vancomycin HCl 750 mg/ Sodium (Chloride) 265 mls @ 265 mls/hr IV Q24H [facility] Last Infusion: 02/19/23 15:22 Dose: Infused Insulin Human Lispro (Insulin Lispro 100 Unit/Ml 3 Ml Vial) 0 unit SUBCUT QIDACHS [facility]; Protocol Last Admin: 02/20/23 08:25 Dose: 6 unit Morphine Sulfate (Morphine Sulfate 2 Mg/Ml Cartridge) 1 mg IVPUSH Q6H PRN; Protocol PRN Reason: Pain, Severe (Pain Scale 7-10) Last Admin: 02/20/23 08:09 Dose: 1 mg Ondansetron HCl (Ondansetron Hcl 4 Mg/2 Ml Vial) 4 mg IVPUSH Q8H PRN PRN Reason: Nausea and Vomiting Oxycodone HCl (Oxycodone Hcl Immed Release 5 Mg Tablet) 5 mg PO Q6H PRN PRN Reason: Pain, Severe (Pain Scale 7-10) Last Admin: 02/20/23 00:45 Dose: 5 mg Pharmacy Consult (Consult Rx Vancomycin Dosing) 1 each MISCELLANE DAILY PRN PRN Reason: Consult order Prednisone (Prednisone 20 Mg Tablet) 20 mg PO DAILY [facility] Tiotropium [place] (Tiotropium [place] 2.5 Mcg Inhaler) 2 puff INHALE RDAILY [facility] Last Admin: 02/20/23 07:38 Dose: Not Given Home Medications Medication Instructions Recorded Confirmed Last Taken Type clopidogrel 75 mg tablet 75 mg PO DAILY 11/24/22 02/14/23 Unknown History nicotine 21 mg/24 hr daily 1 patch topical DAILY 11/26/22 02/14/23 Unknown History transdermal patch apixaban 5 mg tablet (Eliquis) 5 mg PO BID 01/11/23 02/14/23 Unknown History fluticasone propionate 115 2 puff inhalation BID 01/11/23 02/14/23 Unknown History mcg-salmeterol 21 mcg/actuation HFA inhaler glipizide 10 mg tablet 10 mg PO DAILY 01/11/23 02/14/23 Unknown History insulin glargine 100 unit/mL (3 20 unit subcut BID 01/11/23 02/14/23 Unknown History mL) subcutaneous pen (Lantus Solostar U-100 Insulin) Physical Exam Vital Signs: Vital Signs: Last Vital Signs Temp 96.8 F 02/20/23 07:24 Pulse 77 02/20/23 07:24 Resp 20 02/20/23 07:24 BP 165/95 H 02/20/23 07:24 Pulse Ox 98 02/20/23 07:24 O2 Del Method Room Air 02/20/23 07:24 O2 Flow Rate 1 02/19/23 07:50 FiO2 25 02/16/23 10:00 BMI result Body Mass Index 30.2 Const: General: no acute distress, ill appearing and tired appearing Orientation/consciousness: patient oriented x3 HEENT: Other: Unremarkable Head: Yes normal to inspection Neck: Neck: Yes normal visual inspection Chest: Other: Few basal crackles. Resp: Auscultation: clear to auscultation bilaterally Cardio: Palpation: normal PMI Heart sounds: S1 normal heart sound present, S2 normal heart sound present, no gallops, no murmurs and no rubs GI: Palpation (GI): Soft to palpation Back/Spine/Pelvis: Other: unremarkable Skin: General skin exam: no rashes or lesions noted Neuro: General: patient oriented x3 Extrem: Other: Left below-knee amputation. General: Yes normal to inspection Psych: Mental Status: mental status grossly normal Objective Labs and Meds 02/19/23 09:23 02/20/23 07:12 Lab results: Laboratory Results - last 24 hr 02/19/23 02/19/23 02/19/23 11:53 16:08 16:13 Sodium 145 Potassium 3.8 Chloride 108 Carbon Dioxide 26 Anion Gap 15 BUN 52 H Creatinine 1.03 Estim Creat Clear Calc 63.6 Estimated GFR 56 POC Glucose 186 H 300 H Random Glucose 339 H Calcium 8.4 D HIV 1&2 Ab/P24 Ag 4thGn 02/19/23 02/19/23 02/20/23 20:03 22:06 07:12 Sodium 142 Potassium 3.5 Chloride 106 Carbon Dioxide 26 Anion Gap 14 BUN 43 H Creatinine 0.89 Estim Creat Clear Calc 73.6 Estimated GFR > 60 POC Glucose 414 H* Random Glucose 294 H Calcium 8.8 HIV 1&2 Ab/P24 Ag 4thGn Nonreactive 02/20/23 07:44 Sodium Potassium Chloride Carbon Dioxide Anion Gap BUN Creatinine Estim Creat Clear Calc Estimated GFR POC Glucose 298 H Random Glucose Calcium HIV 1&2 Ab/P24 Ag 4thGn ECG Interpretation: EKG from 02/14-sinus rhythm at 84/Min; old anterior infarct; low-voltage complexes overall; normal VA/slightly prolonged corrected QT at 512 milliseconds. Assessment and Plan (1) Aortic valve vegetation: Status: Acute (2) Cardiac arrest: Status: Acute (3) Ischemic cardiomyopathy: Status: Acute Plan Available documentation reviewed. ROB from [facility]-02/03-LVEF 50 20%; multiple echodensities on all 3 aortic cusps, compatible vegetations versus fibroelastoma months. No definitive perivalvular abscess. No aortic stenosis. No significant aortic regurgitation. Mild mitral regurgitation. [id number] tricuspid regurgitation. In the limited study at [place] from 02/14, LVEF 10-15%. Wall motion abnormalities consistent with ischemic cardiomyopathy. [id number] tricuspid regurgitation. In other study prior to that from 01/27-LVEF 15-20%. Thickened mitral/aortic valve. However, it seems that she really has not had any positive blood cultures for many weeks. Hence etiology for the aortic valve findings are not clear. Per ID documentation at [facility], there is a question of culture negative endocarditis. ID notes here also reviewed. Overall difficult to say what the etiology for the aortic valve findings are due to consistently negative cultures but she also has frequent against medical advice discharge and hence difficult to put everything together. From the infection standpoint, empiric antibiotics as already planned. Otherwise, even if she had aortic fibroelastoma, she is not a suitable candidate for any operative interventions or in fact anything else. She will be at extremely high risk of from any kind of invasive procedures like cardiac surgery and and not recommended to pursue along those lines. Optimal medical therapy for underlying coronary disease, cardiomyopathy, but again unfortunately, there is no way of knowing what she even takes at home. From listed meds, atleast beta blockers, statins. If able to take, then AIDAN-i/ARB or entresto. In spite of all the above, still doubt she actually understands the magnitude of her health issues. d/w . Time Spent With Patient Time: Total time managing care of this patient today ____ minutes. Procedures Date of Service Date of Service: 02/20/23
--- NOTE | 2023-02-20 10:44 | MHC.CM.PN ---
Per ROUNDS discussion, Patient is not yet medically cleared for dc (Likely needs PICC); PT is recommending STR and CM will continue to follow.
--- NOTE | 2023-02-20 11:29 | P.PNIM_ITS ---
Subjective Subjective Date of Service: 02/20/23 Interval History: Seen and evaluated this morning complaining of chest pain Developed symptomatic pause with chest pain and vomiting resolved Hypernatremia and hypokalemia improving kidney function Denies any fever or chills Review of Systems Review of Systems: Yes all other systems are reviewed and are negative Physical Exam 2 Vital Signs: Vital Signs: Last Vital Signs Temp 96.8 F 02/20/23 07:24 Pulse 77 02/20/23 07:24 Resp 20 02/20/23 07:24 BP 165/95 H 02/20/23 07:24 Pulse Ox 98 02/20/23 07:24 O2 Del Method Room Air 02/20/23 07:24 O2 Flow Rate 1 02/19/23 07:50 FiO2 25 02/16/23 10:00 BMI result Body Mass Index 30.2 Const: Other: Constitutional : Awake, interactive, not in distress Neck : Normal inspection, Supple Cardiovascular : RRR, no JVP, no lower extremity edema Respiratory : good bilateral air entry, basal fine crackles, wheezes or rhonchi Gastrointestinal: soft, lax, Normal bowel sounds, Non tender Skin : Warm, Dry Skeletal: Lt BKA with wound covered w dressing Neurological : Alert & oriented x3, No focal deficit Objective Data Active Medications Acetaminophen (Acetaminophen 325 Mg Tablet) 975 mg PO TID [facility] Last Admin: 02/20/23 08:08 Dose: 975 mg Documented By: MELANIE Albuterol Sulfate (Albuterol Sulfate (0.083%) 2.5 Mg/3 Ml Vial.Neb) 2.5 mg INHALE Q2H PRN PRN Reason: Wheezing Albuterol/Ipratropium (Albuterol/Iprat 2.5/0.5mg 3 Ml Ampul.Neb) 3 ml INHALE Q6H [facility] Last Admin: 02/20/23 07:38 Dose: Not Given Documented By: EMILIE Non-Admin Reason: Patient Refused Apixaban (Apixaban 5 Mg Tablet) 5 mg PO BID [facility] Last Admin: 02/20/23 08:09 Dose: 5 mg Documented By: MELANIE Atorvastatin Calcium (Atorvastatin Calcium 80 Mg Tablet) 80 mg PO BEDTIME [facility] Last Admin: 02/19/23 21:12 Dose: 80 mg Documented By: JOLIE Baclofen (Baclofen 10 Mg Tablet) 10 mg PO BID PRN PRN Reason: Muscle pain\stiffness Carvedilol (Carvedilol 3.125 Mg Tablet) 3.125 mg PO BID [facility]; Protocol Last Admin: 02/20/23 08:09 Dose: 3.125 mg Documented By: MELANIE Clopidogrel Bisulfate (Clopidogrel Bisulfate 75 Mg Tablet) 75 mg PO DAILY [facility] Last Admin: 02/20/23 08:09 Dose: 75 mg Documented By: MELANIE Dextrose (Dextrose 50 % 25 Gm/50 Ml Syringe) 25 gm IVPUSH Q15M PRN; Protocol PRN Reason: per Hypoglycemia Standing Ord. Fluticasone/Vilanterol (Fluticasone/Vilanterol 100/25 Blst.W.Dev) 1 puff INHALE RDAILY [facility] Last Admin: 02/20/23 07:38 Dose: Not Given Documented By: EMILIE Non-Admin Reason: Patient Refused Furosemide (Furosemide 40 Mg Tablet) 40 mg PO DAILY [facility]; Protocol Last Admin: 02/19/23 08:29 Dose: 40 mg Documented By: MISHA Glucose (Glucose Gel 15 Gm Gel..Gram.) 15 gm PO Q15M PRN; Protocol PRN Reason: per Hypoglycemia Standing Ord. Cefepime HCl 1 gm/ Sodium (Chloride) 50 mls @ 100 mls/hr IV Q12H [facility] Last Infusion: 02/20/23 01:17 Dose: Infused Documented By: JOLIE Vancomycin HCl 750 mg/ Sodium (Chloride) 265 mls @ 265 mls/hr IV Q24H [facility] Last Infusion: 02/19/23 15:22 Dose: Infused Documented By: MISHA Magnesium Sulfate (Magnesium Sulfate/H2o) 2 gm in 50 mls @ 25 mls/hr IV ONCE ONE Stop: 02/20/23 13:23 Potassium Chloride (Potassium Chloride/H20) 10 meq in 100 mls @ 100 mls/hr IV Q1H [facility] Stop: 02/20/23 13:29 Insulin Human Lispro (Insulin Lispro 100 Unit/Ml 3 Ml Vial) 0 unit SUBCUT QIDACHS [facility]; Protocol Last Admin: 02/20/23 08:25 Dose: 6 unit Documented By: MELANIE Morphine Sulfate (Morphine Sulfate 2 Mg/Ml Cartridge) 1 mg IVPUSH Q6H PRN; Protocol PRN Reason: Pain, Severe (Pain Scale 7-10) Last Admin: 02/20/23 08:09 Dose: 1 mg Documented By: MELANIE Ondansetron HCl (Ondansetron Hcl 4 Mg/2 Ml Vial) 4 mg IVPUSH Q8H PRN PRN Reason: Nausea and Vomiting Oxycodone HCl (Oxycodone Hcl Immed Release 5 Mg Tablet) 5 mg PO Q6H PRN PRN Reason: Pain, Severe (Pain Scale 7-10) Last Admin: 02/20/23 00:45 Dose: 5 mg Documented By: JOLIE Pharmacy Consult (Consult Rx Vancomycin Dosing) 1 each MISCELLANE DAILY PRN PRN Reason: Consult order Potassium Chloride (Potassium Chloride Packet 20 Meq Packet) 40 meq PO ONCE ONE Stop: 02/20/23 11:25 Prednisone (Prednisone 20 Mg Tablet) 20 mg PO DAILY [facility] Tiotropium [place] (Tiotropium [place] 2.5 Mcg Inhaler) 2 puff INHALE RDAILY [facility] Last Admin: 02/20/23 07:38 Dose: Not Given Documented By: EMILIE Non-Admin Reason: Patient Refused Labs 02/19/23 09:23 02/20/23 07:12 Labs: Laboratory Results - last 24 hr 02/19/23 02/19/23 02/19/23 11:53 16:08 16:13 Anion Gap 15 Estim Creat Clear Calc 63.6 Estimated GFR 56 POC Glucose 186 H 300 H Random Glucose 339 H Calcium 8.4 D HIV 1&2 Ab/P24 Ag 4thGn 02/19/23 02/19/23 02/20/23 20:03 22:06 07:12 Anion Gap 14 Estim Creat Clear Calc 73.6 Estimated GFR > 60 POC Glucose 414 H* Random Glucose 294 H Calcium 8.8 HIV 1&2 Ab/P24 Ag 4thGn Nonreactive 02/20/23 07:44 Anion Gap Estim Creat Clear Calc Estimated GFR POC Glucose 298 H Random Glucose Calcium HIV 1&2 Ab/P24 Ag 4thGn Assessment and Plan (1) Ischemic cardiomyopathy: Status: Acute (2) Acute hypernatremia: Status: Acute (3) PEA (Pulseless electrical activity): Status: Acute (4) Aortic valve vegetation: Status: Acute (5) Acute hypoxemic respiratory failure: Status: Acute (6) Infective endocarditis: Status: Acute Plan Patient is a 52 Y F w/ multiple comorbidities including DM, c/b chronic foot wound s/p L BKA, CAD, s/p LAD stent, c/b CHF, COPD, asthma, p/t ED on 02/14 w/ diffuse pain, suffered PEA arrest, w/ ROSC w/in 15 minutes, arrest thought to be d/t hypoxia, of unclear etiology, intubated, admitted ICU and extubated. # Culture negative infective endocarditis Left [facility] many times AMA, has ROB showing aortic valve possible vegetations with negative blood cultures follow-up repeat blood cultures, no growth to date echocardiogram here demonstrating LVEF 10%, unchanged from before, not suggestion of vegetations Keep on Vancomycin and Cefepime ID eval; treat with 6 weeks of IV abx of Vanco and Cefepime To get a PICC line # PEA Arrest s\p ROSC post CPR on admission unclear etiology, thought to be d/t hypoxia Blood cultures from admission still negative started PT monitor on Tele for now # Cardiac pause Had an episode of pause of 5 seconds with vomiting could be vasovagal hold Carvedilol Keep Mg>2, K>4; will give replacement Telemetry # IRAIS 2/2 PEA arrest; resolved I\O monitor BMP # thrombocytopenia Improved , follow cbc # Acute hypernatremia resolved, dc IVF increase free water intake follow BMP # Chest pain Muscuoskeletal post CPR , use Tylenol and Baclofen PRN narcotics EKG, non-specific T waves check Trop # Sve-aykrnnb-[id number] diabetes mellitus sliding scale insulin reduce home Lantus # Congestive heart failure with reduced ejection fraction. Continue Coreg furosemide Not on AIDAN/ARB. # Coronary artery disease status post stent to proximal LAD Continue beta-connor, statin and Plavix # COPD. No exacerbation during admission. Continue home inhalers #? Essential hypertension.? Continue home antihypertensives # Tobacco use disorder Counseled regarding cessation.?Refused nicotine patch # Microcytic anemia Stable # Paroxysmal atrial fibrillation On Eliquis DVT prophylaxis Eliquis Admit as inpatient and will require overnight hospital stay for IV antibiotics for presumed IE, cardiac pause pending safe discharge plan Time Spent With Patient Time: Total time managing care of this patient today ____ minutes. Quality Stroke Does the patient have a stroke diagnosis?: No VTE Prior VTE?: No VTE Risk Level:: Medical - moderate - high VTE Device Contraindication: N/A - Device Ordered VTE Drug Contraindication: N/A - Med Ordered
[2023-02-20 11:48] LABS: Magnesium 2.1 mg/dL (1.6-2.6)
[2023-02-20 11:49] VITALS: BP 149/85; PULSE 82; RESP 20; TEMP 35.4; O2SAT 98
[2023-02-20 12:24] LABS: Glucose, Whole Blood 231 mg/dL (60-115)
[2023-02-20] MEDS: Potassium Chloride Packet 20 MEQ PACKET 40 MEQ PO (12:25)
--- NOTE | 2023-02-20 12:47 | MHC.SLORD ---
Addendum entered and electronically signed by Candida Khan MA, CCC-COMPUTER PROGRAMMER 02/20/23 15:42: Discussed w/ RN on floor. Per RN, pt still not appropriate to work w/ COMPUTER PROGRAMMER this afternoon- Pt has been complaining of chest pain today, limited PO intake today, vomiting. COMPUTER PROGRAMMER to f/u tomorrow morning. Original Note: Speech Language Pathology Order Status: COMPUTER PROGRAMMER attempted to see pt this morning- Per RNs, not a good time to see pt. COMPUTER PROGRAMMER will check-in later this afternoon.
--- NOTE | 2023-02-20 13:17 | PM.CNGS ---
History of Present Illness Consult details Consult date: 02/20/23 Requesting physician: Christoph Anne Narrative: 52-year-old female patient well known to service with a history of peripheral vascular disease presenting with recently diagnosed endocarditis with a PEA arrest. Patient previously underwent left below-knee amputation. Postoperatively patient fell onto stump resulting in an open wound. She is now being care for as an outpatient for wound management. Surgical consultation requested for left BKA open wound. Patient currently complains mainly of chest pain denies any lower extremity pain at this time. Review of Systems Review of Systems: Yes Unobtainable due to mental condition Neurologic: Reports confusion Psychiatric: Psychiatric: Reports confusion [facility] Past Medical History Medical History (Updated 02/20/23 @ 12:47 by Christoph Anne MD) Ischemic cardiomyopathy Aortic valve vegetation Back pain Septic pulmonary embolism Below-knee amputation of left lower extremity Coronary artery disease Hyperglycemia due to diabetes mellitus Cellulitis in diabetic foot PAD (peripheral artery disease) 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 Diabetic foot infection Osteomyelitis Atrial tachycardia GERD (gastroesophageal reflux disease) Atherosclerotic cardiovascular disease Essential hypertension COPD (chronic obstructive pulmonary disease) Asthma Diabetes Hypertension Family History Family History Mother Hx of CABG Sister CAD (coronary artery disease) Family history: reviewed and not pertinent Surgical History Surgical History Status post below-knee amputation of left lower extremity (09/20/22) History of toe surgery (09/22/21) History of esophagogastroduodenoscopy (EGD) Social History Social History Household Members: Spouse Household Members Other:: 2 Housing: Apartment Do you presently have visiting nurse or other home services: Yes (twice a day) Unable to assess alcohol history related to: Refusing to respond Alcohol intake: former Patient Tobacco Use Status: Never used Tobacco Tobacco use type: Cigarette Cigarette Packs Per Day: 0.5 Cigarettes Per Day: 10.0 Years Smoked: since 8 years old Smoked in Last 30 Days: Yes e-Cigarette/Vaping Use: Never Used Second Hand Smoke Exposure: Yes Use of substances other than those prescribed or required for medical reasons: Unable to respond Substance Use Type: Painkillers Currently Displaying Signs/Symptoms of Drug Intoxication Withdrawal: No Advance Directives: Yes Advance Directives on File: Yes Advance Directives Date on File: 09/22/22 Nutrition Risks: On aspiration precautions Patient : No : No Poor oral hygiene: Yes service: No Current occupational status: disabled Meds Allergies Allergy/AdvReac Type Severity Reaction Status Date / Time Penicillins [PENICILLINS] Allergy Severe RASH Verified 02/13/23 18:33 amoxicillin [AMOXICILLIN] Allergy Intermediate HIVES Verified 02/13/23 18:33 perflutren [From Definity] AdvReac Back Pain Verified 02/13/23 18:33 Active Medications: Current Medications Acetaminophen (Acetaminophen 325 Mg Tablet) 975 mg PO TID [facility] Last Admin: 02/20/23 08:08 Dose: 975 mg Albuterol Sulfate (Albuterol Sulfate (0.083%) 2.5 Mg/3 Ml Vial.Neb) 2.5 mg INHALE Q2H PRN PRN Reason: Wheezing Albuterol/Ipratropium (Albuterol/Iprat 2.5/0.5mg 3 Ml Ampul.Neb) 3 ml INHALE Q6H [facility] Last Admin: 02/20/23 07:38 Dose: Not Given Apixaban (Apixaban 5 Mg Tablet) 5 mg PO BID [facility] Last Admin: 02/20/23 08:09 Dose: 5 mg Atorvastatin Calcium (Atorvastatin Calcium 80 Mg Tablet) 80 mg PO BEDTIME [facility] Last Admin: 02/19/23 21:12 Dose: 80 mg Baclofen (Baclofen 10 Mg Tablet) 10 mg PO BID [facility] Carvedilol (Carvedilol 3.125 Mg Tablet) 3.125 mg PO BID [facility]; Protocol Last Admin: 02/20/23 08:09 Dose: 3.125 mg Clopidogrel Bisulfate (Clopidogrel Bisulfate 75 Mg Tablet) 75 mg PO DAILY [facility] Last Admin: 02/20/23 08:09 Dose: 75 mg Dextrose (Dextrose 50 % 25 Gm/50 Ml Syringe) 25 gm IVPUSH Q15M PRN; Protocol PRN Reason: per Hypoglycemia Standing Ord. Fluticasone/Vilanterol (Fluticasone/Vilanterol 100/25 Blst.W.Dev) 1 puff INHALE RDAILY [facility] Last Admin: 02/20/23 07:38 Dose: Not Given Furosemide (Furosemide 40 Mg Tablet) 40 mg PO DAILY [facility]; Protocol Last Admin: 02/19/23 08:29 Dose: 40 mg Glucose (Glucose Gel 15 Gm Gel..Gram.) 15 gm PO Q15M PRN; Protocol PRN Reason: per Hypoglycemia Standing Ord. Cefepime HCl 1 gm/ Sodium (Chloride) 50 mls @ 100 mls/hr IV Q12H [facility] Last Infusion: 02/20/23 12:27 Dose: 0 mls/hr Vancomycin HCl 750 mg/ Sodium (Chloride) 265 mls @ 265 mls/hr IV Q24H [facility] Last Infusion: 02/19/23 15:22 Dose: Infused Magnesium Sulfate (Magnesium Sulfate/H2o) 2 gm in 50 mls @ 25 mls/hr IV ONCE ONE Stop: 02/20/23 13:23 Potassium Chloride (Potassium Chloride/H20) 10 meq in 100 mls @ 100 mls/hr IV Q1H [facility] Stop: 02/20/23 13:29 Insulin Human Lispro (Insulin Lispro 100 Unit/Ml 3 Ml Vial) 0 unit SUBCUT QIDACHS [facility]; Protocol Last Admin: 02/20/23 12:24 Dose: 4 unit Morphine Sulfate (Morphine Sulfate 2 Mg/Ml Cartridge) 1 mg IVPUSH Q6H PRN; Protocol PRN Reason: Pain, Severe (Pain Scale 7-10) Last Admin: 02/20/23 08:09 Dose: 1 mg Ondansetron HCl (Ondansetron Hcl 4 Mg/2 Ml Vial) 4 mg IVPUSH Q8H PRN PRN Reason: Nausea and Vomiting Oxycodone HCl (Oxycodone Hcl Immed Release 5 Mg Tablet) 5 mg PO Q6H PRN PRN Reason: Pain, Severe (Pain Scale 7-10) Last Admin: 02/20/23 00:45 Dose: 5 mg Pharmacy Consult (Consult Rx Vancomycin Dosing) 1 each MISCELLANE DAILY PRN PRN Reason: Consult order Prednisone (Prednisone 20 Mg Tablet) 20 mg PO DAILY [facility] Tiotropium [place] (Tiotropium [place] 2.5 Mcg Inhaler) 2 puff INHALE RDAILY [facility] Last Admin: 02/20/23 07:38 Dose: Not Given Home Medications Medication Instructions Recorded Confirmed Last Taken Type clopidogrel 75 mg tablet 75 mg PO DAILY 11/24/22 02/14/23 Unknown History nicotine 21 mg/24 hr daily 1 patch topical DAILY 11/26/22 02/14/23 Unknown History transdermal patch apixaban 5 mg tablet (Eliquis) 5 mg PO BID 01/11/23 02/14/23 Unknown History fluticasone propionate 115 2 puff inhalation BID 01/11/23 02/14/23 Unknown History mcg-salmeterol 21 mcg/actuation HFA inhaler glipizide 10 mg tablet 10 mg PO DAILY 01/11/23 02/14/23 Unknown History insulin glargine 100 unit/mL (3 20 unit subcut BID 01/11/23 02/14/23 Unknown History mL) subcutaneous pen (Lantus Solostar U-100 Insulin) Physical Exam Vital Signs: Vital Signs: Last Vital Signs Temp 95.8 F L 02/20/23 11:49 Pulse 82 02/20/23 11:49 Resp 20 02/20/23 11:49 BP 149/85 H 02/20/23 11:49 Pulse Ox 98 02/20/23 11:49 O2 Del Method Room Air 02/20/23 11:49 O2 Flow Rate 1 02/19/23 07:50 FiO2 25 02/16/23 10:00 BMI result Body Mass Index 30.2 Const: General: anxious, confusion, patient obtunded and tired appearing Nutritional Appearance: overweight Orientation/consciousness: confusion and patient obtunded Limitations: wheelchair HEENT: Teeth and gingiva: edentulous Skin: General skin exam: Excoriation Neuro: General: confusion and patient obtunded Extrem: Other: Left BKA dressings changed. Open wound noted medially with some granulation tissue noted at wound base. Edema is much improved from her previous visit. Wounds were redressed with Silver alginate,fluff gauze, Kerlix and Bruno bandage. Results Labs 02/19/23 09:02/20/23 07:12 Labs: Abnormal lab results 02/19/23 02/19/23 02/19/23 Range/Units 16:08 16:13 20:03 BUN 52 H (9-16) mg/dL POC Glucose 300 H 414 H* (60-115) mg/dL Random Glucose 339 H (60-115) mg/dL 02/20/23 02/20/23 02/20/23 Range/Units 07:12 07:44 11:55 BUN 43 H (9-16) mg/dL POC Glucose 298 H 231 H (60-115) mg/dL Random Glucose 294 H (60-115) mg/dL BMP 02/19/23 02/20/23 16:08 07:12 Sodium 145 142 Potassium 3.8 3.5 Chloride 108 106 Carbon Dioxide 26 26 BUN 52 H 43 H Creatinine 1.03 0.89 Calcium 8.4 D 8.8 Urine 02/13/23 Range/Units 23:24 Urine Color Yellow Urine Appearance Clear Urine pH 5.5 (5.0-9.0) Ur Specific [place] 1.010 (1.005-1.025) Urine Protein 100 (2+) H (Neg-Trace) mg/dL Urine Glucose (UA) 250 H (Negative) mg/dL All other labs normal. Assessment and Plan (1) Wound dehiscence: Status: Acute Plan 52-year-old female with multiple medical problems including endocarditis presenting after PEA arrest. Patient well known to service with peripheral vascular disease and a previous left below-knee amputation. Recommend daily dressing changes with fluff gauze, Kerlix and Bruno bandage. Silver alginate to open wound to be changed every other day. Time Spent With Patient Time: Total time managing care of this patient today ____ minutes. Procedures Date of Service Date of Service: 02/20/23
[2023-02-20] MEDS: Potassium Chloride/H20 10 MEQ/100 ML PIGGYBACK 100 MEQ IV ×2 (13:49→14:58)
[2023-02-20] MEDS: Morphine Sulfate 2 MG/ML CARTRIDGE IVPUSH (13:49)
--- NOTE | 2023-02-20 14:06 | HE.PHANOTE ---
RE: VANCO DOSING SCR IMPROVED FROM 1.99 ON ADMISSION ON 02/13 TO 0.89 TODAY 02/20. TROUGH IS STILL ONLY 13.0 BUT INSIGHT IS ALSO SHOWING AUC 375 WITH CURRENT DOSING REGIMEN. INCREASING TO 1000 MG Q24 WITH EXPECTED AUC 497 AND TROUGH 11.6 AT STEADY STATE. KEEPING Q24 DOSING BECAUSE NOT SURE IF RENAL FUNCTION MAY STILL DECREASE WHILE ON VANCOMYCIN. OBTAIN DAILY SCR AND CHECK TROUGH AGAIN 02/21 @1300 TO ENSURE SAFETY AND EFFICACY.
[2023-02-20 14:14] LABS: Troponin-I High Sensitivity 137.8 ng/L (<3.5-17.0)
[2023-02-20] MEDS: Magnesium Sulfate/H2O 2 GM/50 ML PIGGYBACK IV (14:43)
[2023-02-20 15:26] VITALS: BP 149/99; PULSE 76; RESP 18; TEMP 36.1; O2SAT 98
[2023-02-20 15:54] LABS: Glucose, Whole Blood 226 mg/dL (60-115)
[2023-02-20] MEDS: vancomycin HCL 1,000 MG in 0.9 % Sodium Chloride 250 ML 270 MG IV (16:17)
--- NOTE | 2023-02-20 19:03 | P.CDIM_ITS ---
PROVIDER RESPONSE TEXT: To clarify, the appropriate diagnosis supported by the clinical indicators: Other (explain): Culture negative endocarditis QUERY TEXT: PHYSICIAN'S DOCUMENTATION REQUEST Date of Query: 02/20/2023 10:18 AM EDT Patient Name: Keisha Chadwick Admit Date: 02/14/2023 Dear Christoph Anne, A review of the medical record indicates additional documentation may be needed. Please review below and update the documentation accordingly. Clinical indicators: PN 9/ - Echocardiogram demonstrating LVEF 10%, unchanged from before, not suggestive of endocarditi s. Infectious disease PN 02/19 - Reason for consult: Possible endocarditis. Please clarify the documentation of the noted Endocarditis: ( ) remains a known or suspected condition for this patient and is further supported by ( ) has been ruled out and a more appropriate diagnosis for this patient s condition is Other (explain)Clinically unable to determine (explain)Thank you, Mahi Nielson, CCS, CDIS Use of terms such as suspected, likely, concern for, or probable (associated with a specific diagnosi s that is being evaluated, monitored, or treated as if it exists) are acceptable and can be coded in the inpatient se tting, when documented at the time of discharge. Please use your independent medical judgment in providing your response. THIS QUERY IS PART OF THE PERMANENT MEDICAL RECORD
[2023-02-20 19:26] VITALS: BP 152/82; PULSE 80; RESP 18; TEMP 36.6; O2SAT 99
[2023-02-20] MEDS: Baclofen 10 MG TABLET PO (19:55)
[2023-02-20] MEDS: Atorvastatin Calcium 80 MG TABLET PO (19:55)
[2023-02-20] MEDS: ondansetron HCL 4 MG/2 ML VIAL IVPUSH (19:56)
[2023-02-20 20:08] LABS: Glucose, Whole Blood 120 mg/dL (60-115)
[2023-02-20 20:35] LABS: Troponin-I High Sensitivity 149.8 ng/L (<3.5-17.0)
[2023-02-21] VITALS (9 sets, daily range): BP systolic 120–162; BP diastolic 71–88; PULSE 77–89; RESP 16–20; TEMP 36–36.7; O2SAT 93–99
[2023-02-21] MEDS: Albuterol/Iprat 2.5/0.5MG 3 ML AMPUL.NEB INHALE (00:10)
[2023-02-21 07:13] LABS: Glucose, Whole Blood 121 mg/dL (60-115)
[2023-02-21 07:38] LABS: Anion Gap 12 (12-20); Blood Urea Nitrogen 33 mg/dL (9-16); Calcium 8.1 mg/dL (8.4-10.2); Carbon Dioxide 25 mmol/L (22-29); Chloride 109 mmol/L (96-108); Creatinine Clr Calc Pharmacy 94.9; Estimated Glomerular Filt Rate > 60; Glucose Random 110 mg/dL (60-115); Potassium 4.2 mmol/L (3.3-5.1); Sodium 142 mmol/L (135-145)
[2023-02-21] MEDS: Fluticasone/Vilanterol 100/25 BLST.W.DEV 1 PUFF INHALE (08:04)
[2023-02-21] MEDS: Baclofen 10 MG TABLET PO ×2 (08:28→19:49)
[2023-02-21] MEDS: Apixaban 5 MG TABLET PO ×2 (08:28→19:49)
[2023-02-21] MEDS: Morphine Sulfate 2 MG/ML CARTRIDGE 1 MG IVPUSH ×2 (08:28→16:29)
[2023-02-21] MEDS: Acetaminophen 325 MG TABLET 975 MG PO ×3 (08:28→19:49)
[2023-02-21] MEDS: Clopidogrel Bisulfate 75 MG TABLET PO (08:28)
[2023-02-21] MEDS: predniSONE 20 MG TABLET PO (08:28)
--- NOTE | 2023-02-21 09:49 | PM.PNCARD ---
Subjective Subjective Date of Service: 02/21/23 Interval history: When I went into the room, she was working with physical therapy. She has had chest pains this admission but they have been suspected to be from chest compressions/musculoskeletal pain. Yesterday she had approximately 4.9-5 second pause but she also was vomiting at that time and hence not clear if it is vagal. Beta-blockers were held after that. No recurrent issues. Today, no new concerns in those regards. Review of Systems Review of Systems Yes all other systems are reviewed and are negative Constitutional: Reports as per HPI and Reports no additional constitutional complaints Eyes: Reports as per HPI and Denies no additional eye complaints Denies system reviewed and no additional complaints, except as documented and Reports as per HPI Cardiovascular: Reports as per HPI, Reports no additional cardiovascular complaints, Denies acrocyanosis, Denies cool extremities, Denies chest pain, Denies leg edema, Denies lightheadedness, Denies palpitations and Denies dyspnea Respiratory: Reports as per HPI, Denies no additional respiratory complaints and Denies dyspnea Gastrointestinal: Reports as per HPI and Denies no additional gastrointestinal complaints Genitourinary: Reports as per HPI Musculoskeletal: Reports no additional musculoskeletal complaints and Reports as per HPI Skin/Breast: Reports system reviewed and no additional complaints, except as docu Reports system reviewed and no additional complaints, except as documented and Reports as per HPI Psychiatric: Reports no additional psychiatric complaints and Reports as per HPI Endocrine: Reports no additional endocrine complaints, Reports as per HPI and Denies palpitations Hematologic/Lymphatic: Reports no additional hematologic/lymphatic complaints and Reports as per HPI Allergic/Immunologic: Reports no additional allergic/immunologic complaints and Reports as per HPI Physical Exam Vital Signs: Last Vital Signs Temp 97.9 F 02/21/23 07:28 Pulse 77 02/21/23 09:04 Resp 16 02/21/23 08:07 BP 149/76 H 02/21/23 07:28 Pulse Ox 98 02/21/23 07:28 O2 Del Method Room Air 02/21/23 07:28 O2 Flow Rate 1 02/21/23 04:00 FiO2 25 02/16/23 10:00 BMI result Body Mass Index 30.2 Const General: no acute distress, ill appearing and tired appearing Orientation/consciousness: patient oriented x3 HEENT Other: Unremarkable Head: Yes normal to inspection Neck Neck: Yes normal visual inspection Chest Other: Few basal crackles. Resp Auscultation: clear to auscultation bilaterally Cardio Palpation: normal PMI Heart sounds: S1 normal heart sound present, S2 normal heart sound present, no gallops, no murmurs and no rubs GI Palpation (GI): Soft to palpation Back/Spine/Pelvis Other: unremarkable Skin General skin exam: no rashes or lesions noted Neuro General: patient oriented x3 Extrem Other: Left below-knee amputation. General: Yes normal to inspection Psych Mental Status: mental status grossly normal Objective Labs and Meds 02/19/23 09:02/21/23 06:56 Lab results: Laboratory Results - last 24 hr 02/20/23 02/20/23 02/20/23 07:12 11:55 13:27 Sodium Potassium Chloride Carbon Dioxide Anion Gap BUN Creatinine Estim Creat Clear Calc Estimated GFR POC Glucose 231 H Random Glucose Calcium Magnesium 2.1 Troponin I High Sens 137.8 H* D Random Vancomycin 02/20/23 02/20/23 02/20/23 13:28 15:50 19:35 Sodium Potassium Chloride Carbon Dioxide Anion Gap BUN Creatinine Estim Creat Clear Calc Estimated GFR POC Glucose 226 H Random Glucose Calcium Magnesium Troponin I High Sens 149.8 H* Random Vancomycin 13.0 L 02/20/23 02/21/23 02/21/23 19:57 06:56 07:06 Sodium 142 Potassium 4.2 Chloride 109 H Carbon Dioxide 25 Anion Gap 12 BUN 33 H Creatinine 0.69 Estim Creat Clear Calc 94.9 Estimated GFR > 60 POC Glucose 120 H 121 H Random Glucose 110 Calcium 8.1 L D Magnesium Troponin I High Sens Random Vancomycin Imaging Radiologist's impression: Impressions Knee X-Ray 02/20/23 13:07 IMPRESSION: Incomplete exam. Increasing soft tissue swelling and air in soft tissues along the medial amputation site. Interval increase in periosteal reaction of the tibia at the amputation site questionable for early osteomyelitis. Progress Note: A&P Assessment and plan (1) Aortic valve vegetation: Status: Acute (2) Cardiac arrest: Status: Acute (3) Ischemic cardiomyopathy: Status: Acute Plan Available documentation reviewed. ROB from [facility]-02/03-LVEF 50 20%; multiple echodensities on all 3 aortic cusps, compatible vegetations versus fibroelastoma months. No definitive perivalvular abscess. No aortic stenosis. No significant aortic regurgitation. Mild mitral regurgitation. [id number] tricuspid regurgitation. In the limited study at [place] from 02/14, LVEF 10-15%. Wall motion abnormalities consistent with ischemic cardiomyopathy. [id number] tricuspid regurgitation. In other study prior to that from 01/27-LVEF 15-20%. Thickened mitral/aortic valve. As mentioned in as today's notes, etiology for the aortic valve findings are not very clear as there are no positive blood cultures support. However, due to recurrent admissions to different hospitals as well as signing against medical advise there is also lack of continued EF care. Any case, she is on empiric antibiotics coverage. Otherwise, she does have underlying coronary disease but again due to lack of compliance and essentially no outpatient follow-up, care less than optimal. Same applies to cardiomyopathy. She had at least be on empiric medical therapy for the above including some combination of aspirin, high-dose statins, beta-blockers, ARB versus Entresto. She can take these as much she is able to, based on prior patterns of noncompliance not clear what will the future hold. Yesterday, she had approximately 4.9-5 second pause but she also had vomiting at that time. Concurrent chest pain but difficult to say if it is musculoskeletal or related to the vomiting. Any case, it resolved and nothing recurrent. Troponins have been checked and they are 137 and 149. Upon admission, as much as 611. EKG similar to prior. Overall, she is extremely ill from cardiac as well as general medical comorbidities, extremely noncompliant and with little or no understanding of the medical issues. Even today, she states she does not know why she is here and I tried to explain all the medical issues, she does not believe me. Need to discuss with family as well. Discussed with Dr. Schrader. Time Spent With Patient Time: Total time managing care of this patient today ____ minutes. Progress Note: Quality Stroke Does the patient have a stroke diagnosis?: No Procedures Date of Service Date of Service: 02/21/23
[2023-02-21 10:59] LABS: Glucose, Whole Blood 151 mg/dL (60-115)
[2023-02-21] MEDS: Insulin Lispro 100 UNIT/ML 3 ML VIAL SUBCUT ×2 (11:27→16:29)
[2023-02-21] MEDS: cefEPime HCl 1 GM in 0.9 % Sodium Chloride 50 ML IV (11:27)
--- NOTE | 2023-02-21 11:50 | HO.PM.IMPN ---
Subjective Subjective Date of Service: 02/21/23 Interval History: feeling weak Physical Exam Vital Signs: Vital Signs: Last Vital Signs Temp 97.7 F 02/21/23 11:07 Pulse 81 02/21/23 11:07 Resp 20 02/21/23 11:07 BP 148/88 H 02/21/23 11:07 Pulse Ox 99 02/21/23 11:07 O2 Del Method Room Air 02/21/23 11:07 O2 Flow Rate 1 02/21/23 04:00 FiO2 25 02/16/23 10:00 BMI result Body Mass Index 30.2 Const: General: no acute distress, ill appearing and tired appearing Orientation/consciousness: patient oriented x3 HEENT: Other: Unremarkable Head: Yes normal to inspection Neck: Neck: Yes normal visual inspection Chest: Other: Few basal crackles. Resp: Auscultation: clear to auscultation bilaterally Cardio: Palpation: normal PMI Heart sounds: S1 normal heart sound present, S2 normal heart sound present, no gallops, no murmurs and no rubs GI: Palpation (GI): Soft to palpation Back/Spine/Pelvis: Other: unremarkable Skin: General skin exam: no rashes or lesions noted Neuro: General: patient oriented x3 Extrem: Other: Left below-knee amputation. General: Yes normal to inspection Psych: Mental Status: mental status grossly normal Objective Data Active Medications Acetaminophen (Acetaminophen 325 Mg Tablet) 975 mg PO TID [facility] Last Admin: 02/21/23 08:28 Dose: 975 mg Documented By: JOSÉ MIGUEL Apixaban (Apixaban 5 Mg Tablet) 5 mg PO BID [facility] Last Admin: 02/21/23 08:28 Dose: 5 mg Documented By: JOSÉ MIGUEL Atorvastatin Calcium (Atorvastatin Calcium 80 Mg Tablet) 80 mg PO BEDTIME [facility] Last Admin: 02/20/23 19:55 Dose: 80 mg Documented By: LORE Baclofen (Baclofen 10 Mg Tablet) 10 mg PO BID [facility] Last Admin: 02/21/23 08:28 Dose: 10 mg Documented By: JOSÉ MIGUEL Carvedilol (Carvedilol 3.125 Mg Tablet) 3.125 mg PO BID [facility]; Protocol Last Admin: 02/20/23 08:09 Dose: 3.125 mg Documented By: MELANIE Carvedilol (Carvedilol 3.125 Mg Tablet) 3.125 mg PO BID [facility]; Protocol Clopidogrel Bisulfate (Clopidogrel Bisulfate 75 Mg Tablet) 75 mg PO DAILY [facility] Last Admin: 02/21/23 08:28 Dose: 75 mg Documented By: JOSÉ MIGUEL Dextrose (Dextrose 50 % 25 Gm/50 Ml Syringe) 25 gm IVPUSH Q15M PRN; Protocol PRN Reason: per Hypoglycemia Standing Ord. Fluticasone/Vilanterol (Fluticasone/Vilanterol 100/25 Blst.W.Dev) 1 puff INHALE RDAILY [facility] Last Admin: 02/21/23 08:04 Dose: 1 puff Documented By: HARVEY Furosemide (Furosemide 40 Mg Tablet) 40 mg PO DAILY [facility]; Protocol Last Admin: 02/19/23 08:29 Dose: 40 mg Documented By: ALEXIAORRDouglas Glucose (Glucose Gel 15 Gm Gel..Gram.) 15 gm PO Q15M PRN; Protocol PRN Reason: per Hypoglycemia Standing Ord. Cefepime HCl 1 gm/ Sodium (Chloride) 50 mls @ 100 mls/hr IV Q12H [facility] Last Admin: 02/21/23 11:27 Dose: 100 mls/hr Documented By: JOSÉ MIGUEL Vancomycin HCl 1,000 mg/ (Sodium Chloride) 270 mls @ 270 mls/hr IV Q24H [facility] Last Infusion: 02/20/23 17:32 Dose: Infused Documented By: MELANIE Insulin Human Lispro (Insulin Lispro 100 Unit/Ml 3 Ml Vial) 0 unit SUBCUT QIDACHS [facility]; Protocol Last Admin: 02/21/23 11:27 Dose: 2 unit Documented By: JOSÉ MIGUEL Losartan Potassium (Losartan Potassium 25 Mg Tablet) 25 mg PO DAILY [facility]; Protocol Morphine Sulfate (Morphine Sulfate 2 Mg/Ml Cartridge) 1 mg IVPUSH Q6H PRN; Protocol PRN Reason: Pain, Severe (Pain Scale 7-10) Last Admin: 02/21/23 08:28 Dose: 1 mg Documented By: JOSÉ MIGUEL Ondansetron HCl (Ondansetron Hcl 4 Mg/2 Ml Vial) 4 mg IVPUSH Q8H PRN PRN Reason: Nausea and Vomiting Last Admin: 02/20/23 19:56 Dose: 4 mg Documented By: LORE Oxycodone HCl (Oxycodone Hcl Immed Release 5 Mg Tablet) 5 mg PO Q6H PRN PRN Reason: Pain, Severe (Pain Scale 7-10) Last Admin: 02/20/23 19:55 Dose: 5 mg Documented By: LORE Pharmacy Consult (Consult Rx Vancomycin Dosing) 1 each MISCELLANE DAILY PRN PRN Reason: Consult order Prednisone (Prednisone 20 Mg Tablet) 20 mg PO DAILY [facility] Last Admin: 02/21/23 08:28 Dose: 20 mg Documented By: JOSÉ MIGUEL Tiotropium Alfred (Tiotropium Alfred 2.5 Mcg Inhaler) 2 puff INHALE RDAILY [facility] Last Admin: 02/21/23 08:04 Dose: 2 puff Documented By: HARVEY Labs 02/19/23 09:23 02/21/23 06:56 Labs: Laboratory Results - last 24 hr 02/20/23 02/20/23 02/20/23 11:55 13:28 15:50 Anion Gap Estim Creat Clear Calc Estimated GFR POC Glucose 231 H 226 H Random Glucose Calcium Random Vancomycin 13.0 L 02/20/23 02/21/23 02/21/23 19:57 06:56 07:06 Anion Gap 12 Estim Creat Clear Calc 94.9 Estimated GFR > 60 POC Glucose 120 H 121 H Random Glucose 110 Calcium 8.1 L D Random Vancomycin 02/21/23 10:53 Anion Gap Estim Creat Clear Calc Estimated GFR POC Glucose 151 H Random Glucose Calcium Random Vancomycin Assessment and Plan (1) Ischemic cardiomyopathy: Status: Acute (2) Acute hypernatremia: Status: Acute (3) PEA (Pulseless electrical activity): Status: Acute (4) Aortic valve vegetation: Status: Acute (5) Acute hypoxemic respiratory failure: Status: Acute (6) Infective endocarditis: Status: Acute Plan 52F PMH DM, c/b chronic foot wound s/p L BKA, CAD, s/p LAD stent, chronic systolic CHF, COPD, asthma, p/t ED on 02/14 w/ diffuse pain, suffered PEA arrest, w/ ROSC w/in 15 minutes, arrest thought to be d/t hypoxia, of unclear etiology, intubated, admitted ICU and extubated. Culture negative infective endocarditis Left [facility] many times AMA, has ROB showing aortic valve possible vegetations with negative blood cultures follow-up repeat blood cultures, no growth to date echocardiogram here demonstrating LVEF 10%, unchanged from before, not suggestion of vegetations ID appreciated - treat with 6 weeks of IV abx of Vanco and Cefepime (end mar) PEA Arrest s\p ROSC post CPR on admission unclear etiology, thought to be d/t hypoxia Blood cultures from admission still negative ?insight psych eval for decisions surrounding dispo such as AMA Cardiac pause Had an episode of pause of 5 seconds with vomiting could be vasovagal restart coreg IRAIS 2/2 PEA arrest; resolved I\O monitor BMP thrombocytopenia Improved Acute hypernatremia resolved [id number] diabetes mellitus sliding scale insulin reduce home Lantus Congestive heart failure with reduced ejection fraction. Continue Coreg, losartan furosemide Coronary artery disease status post stent to proximal LAD Continue beta-connor, statin and Plavix COPD. No exacerbation during admission. Continue home inhalers Tobacco use disorder Counseled regarding cessation.?Refused nicotine patch Microcytic anemia Stable Paroxysmal atrial fibrillation On Eliquis DVT prophylaxis Eliquis Admit as inpatient and will require overnight hospital stay for IV antibiotics for presumed IE, cardiac pause pending safe discharge plan Time Spent With Patient Time: Total time managing care of this patient today ____ minutes. Quality Stroke Does the patient have a stroke diagnosis?: No VTE Prior VTE?: No VTE Risk Level:: Medical - moderate - high VTE Device Contraindication: N/A - Device Ordered VTE Drug Contraindication: N/A - Med Ordered
[2023-02-21 13:34] LABS: Vancomycin Random 14.6 mcg/mL (15-20)
--- NOTE | 2023-02-21 13:43 | HE.PHANOTE ---
RE VANCO DOSING MAINTAIN CURRENT REGIMEN
--- NOTE | 2023-02-21 14:07 | P.CONGS_ITS ---
History of Present Illness Consult details Consult date: 02/21/23 Reason for consult: wound care Narrative: Evaluation regarding nonhealing left BKA stump. This was done on 09/20/2022 by the general surgery team. On 02/13/2023 she was then admitted to our facility. At that time she was noted to be in acute respiratory failure cardiac arrest Congestive heart failure and endocarditis. She was reportedly down for approximately 10 minutes and then achieved ROSC. She has been in the hospital for the last 8 days in appears to be doing somewhat better. She is now for vascular evaluation regarding this nonhealing left stump. [facility] Past Medical History Medical History (Updated 02/21/23 @ 14:16 by Marco Lopez MD) Ischemic cardiomyopathy Aortic valve vegetation Back pain Septic pulmonary embolism Below-knee amputation of left lower extremity Coronary artery disease Hyperglycemia due to diabetes mellitus Cellulitis in diabetic foot PAD (peripheral artery disease) 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 Diabetic foot infection Osteomyelitis Atrial tachycardia GERD (gastroesophageal reflux disease) Atherosclerotic cardiovascular disease Essential hypertension COPD (chronic obstructive pulmonary disease) Asthma Diabetes Hypertension Family History Family History Mother Hx of CABG Sister CAD (coronary artery disease) Family history: reviewed and not pertinent Surgical History Surgical History Status post below-knee amputation of left lower extremity (09/20/22) History of toe surgery (09/22/21) History of esophagogastroduodenoscopy (EGD) Social History Social History Household Members: Spouse Household Members Other:: 2 Housing: Apartment Do you presently have visiting nurse or other home services: Yes (twice a day) Unable to assess alcohol history related to: Refusing to respond Alcohol intake: former Patient Tobacco Use Status: Never used Tobacco Tobacco use type: Cigarette Cigarette Packs Per Day: 0.5 Cigarettes Per Day: 10.0 Years Smoked: since 8 years old Smoked in Last 30 Days: Yes e-Cigarette/Vaping Use: Never Used Second Hand Smoke Exposure: Yes Use of substances other than those prescribed or required for medical reasons: Unable to respond Substance Use Type: Painkillers Currently Displaying Signs/Symptoms of Drug Intoxication Withdrawal: No Advance Directives: Yes Advance Directives on File: Yes Advance Directives Date on File: 09/22/22 Nutrition Risks: On aspiration precautions Patient : No : No Poor oral hygiene: Yes service: No Current occupational status: disabled Meds Allergies Allergy/AdvReac Type Severity Reaction Status Date / Time Penicillins [PENICILLINS] Allergy Severe RASH Verified 02/13/23 18:33 amoxicillin [AMOXICILLIN] Allergy Intermediate HIVES Verified 02/13/23 18:33 perflutren [From Definity] AdvReac Back Pain Verified 02/13/23 18:33 Active Medications: Current Medications Acetaminophen (Acetaminophen 325 Mg Tablet) 975 mg PO TID [facility] Last Admin: 02/21/23 08:28 Dose: 975 mg Apixaban (Apixaban 5 Mg Tablet) 5 mg PO BID [facility] Last Admin: 02/21/23 08:28 Dose: 5 mg Atorvastatin Calcium (Atorvastatin Calcium 80 Mg Tablet) 80 mg PO BEDTIME [facility] Last Admin: 02/20/23 19:55 Dose: 80 mg Baclofen (Baclofen 10 Mg Tablet) 10 mg PO BID [facility] Last Admin: 02/21/23 08:28 Dose: 10 mg Carvedilol (Carvedilol 3.125 Mg Tablet) 3.125 mg PO BID [facility]; Protocol Last Admin: 02/20/23 08:09 Dose: 3.125 mg Carvedilol (Carvedilol 3.125 Mg Tablet) 3.125 mg PO BID [facility]; Protocol Clopidogrel Bisulfate (Clopidogrel Bisulfate 75 Mg Tablet) 75 mg PO DAILY [facility] Last Admin: 02/21/23 08:28 Dose: 75 mg Dextrose (Dextrose 50 % 25 Gm/50 Ml Syringe) 25 gm IVPUSH Q15M PRN; Protocol PRN Reason: per Hypoglycemia Standing Ord. Fluticasone/Vilanterol (Fluticasone/Vilanterol 100/25 Blst.W.Dev) 1 puff INHALE RDAILY [facility] Last Admin: 02/21/23 08:04 Dose: 1 puff Furosemide (Furosemide 40 Mg Tablet) 40 mg PO DAILY [facility]; Protocol Last Admin: 02/19/23 08:29 Dose: 40 mg Glucose (Glucose Gel 15 Gm Gel..Gram.) 15 gm PO Q15M PRN; Protocol PRN Reason: per Hypoglycemia Standing Ord. Cefepime HCl 1 gm/ Sodium (Chloride) 50 mls @ 100 mls/hr IV Q12H [facility] Last Infusion: 02/21/23 12:00 Dose: Infused Vancomycin HCl 1,000 mg/ (Sodium Chloride) 270 mls @ 270 mls/hr IV Q24H [facility] Last Infusion: 02/20/23 17:32 Dose: Infused Insulin Human Lispro (Insulin Lispro 100 Unit/Ml 3 Ml Vial) 0 unit SUBCUT QIDACHS [facility]; Protocol Last Admin: 02/21/23 11:27 Dose: 2 unit Losartan Potassium (Losartan Potassium 25 Mg Tablet) 25 mg PO DAILY [facility]; Protocol Morphine Sulfate (Morphine Sulfate 2 Mg/Ml Cartridge) 1 mg IVPUSH Q6H PRN; Protocol PRN Reason: Pain, Severe (Pain Scale 7-10) Last Admin: 02/21/23 08:28 Dose: 1 mg Ondansetron HCl (Ondansetron Hcl 4 Mg/2 Ml Vial) 4 mg IVPUSH Q8H PRN PRN Reason: Nausea and Vomiting Last Admin: 02/20/23 19:56 Dose: 4 mg Oxycodone HCl (Oxycodone Hcl Immed Release 5 Mg Tablet) 5 mg PO Q6H PRN PRN Reason: Pain, Severe (Pain Scale 7-10) Last Admin: 02/20/23 19:55 Dose: 5 mg Pharmacy Consult (Consult Rx Vancomycin Dosing) 1 each MISCELLANE DAILY PRN PRN Reason: Consult order Prednisone (Prednisone 20 Mg Tablet) 20 mg PO DAILY [facility] Last Admin: 02/21/23 08:28 Dose: 20 mg Tiotropium Elizabeth (Tiotropium Elizabeth 2.5 Mcg Inhaler) 2 puff INHALE RDAILY [facility] Last Admin: 02/21/23 08:04 Dose: 2 puff Home Medications Medication Instructions Recorded Confirmed Last Taken Type clopidogrel 75 mg tablet 75 mg PO DAILY 11/24/22 02/14/23 Unknown History nicotine 21 mg/24 hr daily 1 patch topical DAILY 11/26/22 02/14/23 Unknown History transdermal patch apixaban 5 mg tablet (Eliquis) 5 mg PO BID 01/11/23 02/14/23 Unknown History fluticasone propionate 115 2 puff inhalation BID 01/11/23 02/14/23 Unknown History mcg-salmeterol 21 mcg/actuation HFA inhaler glipizide 10 mg tablet 10 mg PO DAILY 01/11/23 02/14/23 Unknown History insulin glargine 100 unit/mL (3 20 unit subcut BID 01/11/23 02/14/23 Unknown History mL) subcutaneous pen (Lantus Solostar U-100 Insulin) Physical Exam 2 Vital Signs: Vital Signs: Last Vital Signs Temp 97.7 F 02/21/23 11:07 Pulse 81 02/21/23 11:07 Resp 20 02/21/23 11:07 BP 148/88 H 02/21/23 11:07 Pulse Ox 99 02/21/23 11:07 O2 Del Method Room Air 02/21/23 11:07 O2 Flow Rate 1 02/21/23 04:00 FiO2 25 02/16/23 10:00 BMI result Body Mass Index 30.2 Const: General: cooperative, healthy appearing and no acute distress O rientation/consciousness: oriented to person, oriented to place and oriented to time HEENT: Head: Yes normal to inspection Neck: Carotids: no bruits Chest: Chest palpation & inspection: normal inspection of the chest Resp: Effort & Inspection: normal respiratory effort and able to speak in complete sentences Auscultation: clear to auscultation bilaterally Cardio: Rate: regular rate Heart sounds: S1 normal heart sound present and S2 normal heart sound present GI: Inspection: Yes normal to inspection Skin: Other: Left medial stump opening approximately 6 x 3 x 0.3 cm with fibrinous necrotic material overlying. Overall stump feels cool. General skin exam: no rashes or lesions noted Wounds: no wounds Neuro: General: oriented to person, oriented to place, oriented to time and CN's II-XI intact bilaterally Extrem: General: Yes normal to inspection, Yes full ROM and Yes no clubbing, cyanosis or edema Psych: Appearance: grossly normal and well kempt Speech and movement: N ormal speech and movement present Affect: normal affect Results Labs 02/19/23 09:23 02/21/23 06:56 Labs: Abnormal lab results 02/20/23 02/20/23 02/20/23 Range/Units 13:27 15:50 19:35 Chloride (96-108) mmol/L BUN (9-16) mg/dL POC Glucose 226 H (60-115) mg/dL Calcium (8.4-10.2) mg/dL Troponin I High Sens 137.8 H* D 149.8 H* (<3.5-17.0) ng/L Random Vancomycin (15-20) mcg/mL 02/20/23 02/21/23 02/21/23 Range/Units 19:57 06:56 07:06 Chloride 109 H (96-108) mmol/L BUN 33 H (9-16) mg/dL POC Glucose 120 H 121 H (60-115) mg/dL Calcium 8.1 L D (8.4-10.2) mg/dL Troponin I High Sens (<3.5-17.0) ng/L Random Vancomycin (15-20) mcg/mL 02/21/23 02/21/23 Range/Units 10:53 13:15 Chloride (96-108) mmol/L BUN (9-16) mg/dL POC Glucose 151 H (60-115) mg/dL Calcium (8.4-10.2) mg/dL Troponin I High Sens (<3.5-17.0) ng/L Random Vancomycin 14.6 L (15-20) mcg/mL BMP 02/21/23 06:56 Sodium 142 Potassium 4.2 Chloride 109 H Carbon Dioxide 25 BUN 33 H Creatinine 0.69 Calcium 8.1 L D Urine 02/13/23 Range/Units 23:24 Urine Color Yellow Urine Appearance Clear Urine pH 5.5 (5.0-9.0) Ur Specific [place] 1.010 (1.005-1.025) Urine Protein 100 (2+) H (Neg-Trace) mg/dL Urine Glucose (UA) 250 H (Negative) mg/dL All other labs normal. Assessment and Plan (1) Non-pressure ulcer of stump of below knee amputation of left lower extremity: Status: Acute Plan In short patient has a nonhealing left BKA stump. At the current time there is no overt signs of infection. Is poorly healing and actually does feel cool. There may be a vascular component to this. Her overall comorbidities and current status prevents any aggressive intervention. At the current time agree with the General surgery team and continue with local wound care. We will follow-up on an as-needed basis. Thank you for allowing us to assist in her care. If there are any questions or concerns please do not hesitate to contact us. Time Spent With Patient Time: Total time managing care of this patient today ____ minutes. Procedures Date of Service Date of Service: 02/21/23
--- NOTE | 2023-02-21 15:55 | MHC.SPEECHCO ---
Pt off floor for PICC line this afternoon. 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
--- NOTE | 2023-02-21 15:59 | P.PICC_ITS ---
PICC Line Insertion NPICC Diagnosis: possible endocarditis Indication: half-way antibiotics needed Pertinent Labs: reviewed Technique: Following informed consent including risks, benefits and alternatives and using sterile technique including cap and mask, sterile gown, glove and drape, the right arm was prepped and draped in the usual sterile fashion of full barrier technique with CHG. Following completion of [place] Protocol the skin and soft tissues were anesthetized with 1% Lidocaine plain. Using ultrasound guidance, right basilic vein access was obtained on second attempt. Over an 0.018 wire through peel-away sheath, a 4FR single lumen PASV PICC line was positioned. Catheter length is 40CM internal length, at the 0 CM external jesus, for a total trimmed length of 40 CM. The procedure was performed in S272. Tip verification was performed by Leroy Moody with Carmine 3CG. Tip located in SVC. Ultrasound was used to document vein patency and for needle entry. A formal ultrasound picture and cardiac rhythm strip was recorded. Vascular Proof Sorter has released the line for use and it is currently dressed with a StatLock, Tegaderm, and CHG disc. Verification has been performed for blood return and line patency. Arm Circumference: 26.5 CM Equipment: Calligo PowerPICC SOLO Catheter Type: 4FR single lumen PADV PICC Lot #: [id number]
[2023-02-21 16:27] LABS: Glucose, Whole Blood 212 mg/dL (60-115)
[2023-02-21] MEDS: vancomycin HCL 1,000 MG in 0.9 % Sodium Chloride 250 ML 270 MG IV (16:30)
--- NOTE | 2023-02-21 17:44 | P.CNPS_ITS ---
History of Present Illness Date of Service: 02/21/2023 Chief Complaint: Acute resp failure, cardiac arrest, CHF Reason for Consult: ?capacity to decide on medical issues like AMA Requesting physician: Jaren Schrader Discussed with referring provider: Yes Sources of Information: patient interviewed and chart reviewed HPI Narrative: Patient is a 52 year old female with PMH DM, c/b chronic foot wound s/p L BKA, CAD, s/p LAD stent, chronic systolic CHF, COPD, asthma, p/t ED on 02/14 w/ diffuse pain, suffered PEA arrest, w/ ROSC w/in 15 minutes, arrest thought to be d/t hypoxia, of unclear etiology, intubated, admitted ICU and extubated. Pt was admitted inpatient and requires hospital stay for IV antibiotics for presumed IE, IRAIS pending safe discharge plan. Consult was placed for ? of capacity for making decision on medical issues. During consult assessment, pt presents as calm, cooperative and friendly. Patient was alert and oriented to place and year; she thought it was March and [facility] was President. When asked if she knew why she was in the hospital, pt was able to state that she has heart issues but I don't remember what exactly . She understood that she required hospitalization and treatment and reports she wants to stay and get help . Patient stated, I kept leaving AMA at [facility] because I didn't think I was seriously fucked up. I thought they were lying to me. Now I know it's serious and that I need help. I don't want to . Patient reports she does not plan on leaving AMA. Dr. Schrader notified of conversation. Case reviewed with Dr. Denson and Dr. Schrader. Past Psychiatric History: Pt denies any behavioral health history. Review of Systems Constitutional: Reports as per HPI Eyes: Reports as per HPI Reports as per HPI Cardiovascular: Reports as per HPI Respiratory: Reports as per HPI Gastrointestinal: Reports as per HPI Genitourinary: Reports as per HPI Musculoskeletal: Reports as per HPI Skin/Breast: Reports as per HPI Reports as per HPI Psychiatric: Reports as per HPI Endocrine: Reports as per HPI Hematologic/Lymphatic: Reports as per HPI Allergic/Immunologic: Reports as per HPI [facility] Medical History (Updated 02/21/23 @ 18:21 by Deysi Pineda NP) Ischemic cardiomyopathy Aortic valve vegetation Back pain Septic pulmonary embolism Below-knee amputation of left lower extremity Coronary artery disease Hyperglycemia due to diabetes mellitus Cellulitis in diabetic foot PAD (peripheral artery disease) 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 Diabetic foot infection Osteomyelitis Atrial tachycardia GERD (gastroesophageal reflux disease) Atherosclerotic cardiovascular disease Essential hypertension COPD (chronic obstructive pulmonary disease) Asthma Diabetes Hypertension Surgical History Status post below-knee amputation of left lower extremity (09/20/22) History of toe surgery (09/22/21) History of esophagogastroduodenoscopy (EGD) Family History: unknown Social History: Lives in [place], [place] with her boyfriend and 2 children. Substance History: Reports hx of using crack 9 years ago. Diagnostics Vital Signs (24Hr): Vital Signs - 24 hr 02/20/23 19:26 02/21/23 00:00 02/21/23 00:12 Temperature 97.9 F 97.1 F Pulse Rate 80 78 84 Respiratory Rate 18 16 18 Blood Pressure 152/82 H 120/87 Pulse Oximetry 99 93 Oxygen Delivery Method Room Air Nasal Cannula Oxygen Flow Rate 1 02/21/23 04:00 02/21/23 07:28 02/21/23 08:07 Temperature 98.0 F 97.9 F Pulse Rate 78 77 77 Respiratory Rate 16 20 16 Blood Pressure 136/71 149/76 H Pulse Oximetry 98 98 Oxygen Delivery Method Nasal Cannula Room Air Oxygen Flow Rate 1 02/21/23 09:04 02/21/23 11:07 02/21/23 16:21 Temperature 97.7 F 96.8 F Pulse Rate 77 81 89 Respiratory Rate 20 18 Blood Pressure 148/88 H 162/85 H Pulse Oximetry 99 98 Oxygen Delivery Method Room Air Room Air Oxygen Flow Rate BMI result Body Mass Index 30.2 Labs 02/19/23 09:23 02/21/23 06:56 Labs: Laboratory Results - last 48 hr 02/19/23 02/19/23 02/20/23 20:03 22:06 07:12 Sodium 142 Potassium 3.5 Chloride 106 Carbon Dioxide 26 Anion Gap 14 BUN 43 H Creatinine 0.89 Estim Creat Clear Calc 73.6 Estimated GFR > 60 POC Glucose 414 H* Random Glucose 294 H Calcium 8.8 Magnesium 2.1 Troponin I High Sens Random Vancomycin HIV 1&2 Ab/P24 Ag 4thGn Nonreactive 02/20/23 02/20/23 02/20/23 07:44 11:55 13:27 Sodium Potassium Chloride Carbon Dioxide Anion Gap BUN Creatinine Estim Creat Clear Calc Estimated GFR POC Glucose 298 H 231 H Random Glucose Calcium Magnesium Troponin I High Sens 137.8 H* D Random Vancomycin HIV 1&2 Ab/P24 Ag 4th 02/20/23 02/20/23 02/20/23 13:28 15:50 19:35 Sodium Potassium Chloride Carbon Dioxide Anion Gap BUN Creatinine Estim Creat Clear Calc Estimated GFR POC Glucose 226 H Random Glucose Calcium Magnesium Troponin I High Sens 149.8 H* Random Vancomycin 13.0 L HIV 1&2 Ab/P24 Ag 4th 02/20/23 02/21/23 02/21/23 19:57 06:56 07:06 Sodium 142 Potassium 4.2 Chloride 109 H Carbon Dioxide 25 Anion Gap 12 BUN 33 H Creatinine 0.69 Estim Creat Clear Calc 94.9 Estimated GFR > 60 POC Glucose 120 H 121 H Random Glucose 110 Calcium 8.1 L D Magnesium Troponin I High Sens Random Vancomycin HIV 1&2 Ab/P24 Ag [facility] 02/21/23 02/21/23 02/21/23 10:53 13:15 16:22 Sodium Potassium Chloride Carbon Dioxide Anion Gap BUN Creatinine Estim Creat Clear Calc Estimated GFR POC Glucose 151 H 212 H Random Glucose Calcium Magnesium Troponin I High Sens Random Vancomycin 14.6 L HIV 1&2 Ab/P24 Ag [facility] Imaging Radiology Impressions: ITS Impressions Chest X-Ray 02/13/23 18:55 IMPRESSION: Increasing small bilateral pleural effusions. Venous Duplex 02/13/23 21:39 IMPRESSION: No DVT demonstrated in the left lower extremity. Chest X-Ray 02/13/23 22:45 IMPRESSION: 1. Interval placement of a left-sided central venous catheter with the tip in the region of the SVC. Endotracheal tube with its tip approximately 3.3 cm proximal to the dayne. 2. Layering right-sided pleural effusion with adjacent atelectasis, slightly more prominent when compared to the prior examination. Small, layering left-sided pleural effusion, unchanged. 3. No pneumothorax or pneumomediastinum. Head CT 02/14/23 01:14 IMPRESSION: No acute intracranial pathology. Chest CTA 02/14/23 01:15 IMPRESSION: 1. No evidence for pulmonary embolism. 2. Moderate right and small left pleural effusions. 3. Bilateral lower lung field consolidation/infiltrates likely a combination of pneumonia and atelectasis. VTE: Negative for pulmonary embolism. Abdomen/Pelvis CT 02/14/23 01:19 IMPRESSION: 1. Bilateral pleural effusions with bibasilar consolidation possibly a combination of atelectasis and infiltrate. 2. Irregular liver suggests hepatocellular disease/cirrhosis. There is associated splenomegaly, mild ascites and soft tissue anasarca. 3. Atherosclerotic plaque of the aorta as well as renal vascular calcification. No evidence for acute intra-abdominal process. Fleischner guidelines were followed. Brain MRI 02/15/23 13:20 IMPRESSION: - Nodular prominence of the basilar artery flow void tip for which a CTA or MRA of the head would be helpful in assessing for a basilar artery tip aneurysm. There is no evidence of acute intracranial hemorrhage on the GRE series. - No acute intracranial findings. There is no evidence of cerebral anoxic injury and there are no acute infarcts. - There is mild chronic microangiopathy. - There is a moderate right mastoid effusion. Knee X-Ray 02/20/23 13:07 IMPRESSION: Incomplete exam. Increasing soft tissue swelling and air in soft tissues along the medial amputation site. Interval increase in periosteal reaction of the tibia at the amputation site questionable for early osteomyelitis. Mental Status Exam Mental Status Exam Narrative: Pt is alert and oriented to location and year, did not know month or president; behavior is cooperative, friendly and calm; dressed in hospital attire; mood is described as okay ; eye contact appropriate; Speech is normal rate, volume and prosody and not pressured; no psychomotor agitation/retardation present; thought process is organized; Thought content is on tx; otherwise pertinent to relevant topics and without any delusional content, paranoid ideations or grandiosity; denies SI/HI. There is no evidence of perceptual disturbance. Patients insight and judgment are fair. Medications Medications Current Medications Acetaminophen (Acetaminophen 325 Mg Tablet) 975 mg PO TID [facility] Last Admin: 02/21/23 16:30 Dose: 975 mg Apixaban (Apixaban 5 Mg Tablet) 5 mg PO BID [facility] Last Admin: 02/21/23 08:28 Dose: 5 mg Atorvastatin Calcium (Atorvastatin Calcium 80 Mg Tablet) 80 mg PO BEDTIME [facility] Last Admin: 02/20/23 19:55 Dose: 80 mg Baclofen (Baclofen 10 Mg Tablet) 10 mg PO BID [facility] Last Admin: 02/21/23 08:28 Dose: 10 mg Carvedilol (Carvedilol 3.125 Mg Tablet) 3.125 mg PO BID [facility]; Protocol Last Admin: 02/20/23 08:09 Dose: 3.125 mg Carvedilol (Carvedilol 3.125 Mg Tablet) 3.125 mg PO BID [facility]; Protocol Clopidogrel Bisulfate (Clopidogrel Bisulfate 75 Mg Tablet) 75 mg PO DAILY [facility] Last Admin: 02/21/23 08:28 Dose: 75 mg Dextrose (Dextrose 50 % 25 Gm/50 Ml Syringe) 25 gm IVPUSH Q15M PRN; Protocol PRN Reason: per Hypoglycemia Standing Ord. Fluticasone/Vilanterol (Fluticasone/Vilanterol 100/25 Blst.W.Dev) 1 puff INHALE RDAILY [facility] Last Admin: 02/21/23 08:04 Dose: 1 puff Furosemide (Furosemide 40 Mg Tablet) 40 mg PO DAILY [facility]; Protocol Last Admin: 02/19/23 08:29 Dose: 40 mg Glucose (Glucose Gel 15 Gm Gel..Gram.) 15 gm PO Q15M PRN; Protocol PRN Reason: per Hypoglycemia Standing Ord. Cefepime HCl 1 gm/ Sodium (Chloride) 50 mls @ 100 mls/hr IV Q12H [facility] Last Infusion: 02/21/23 12:00 Dose: Infused Vancomycin HCl 1,000 mg/ (Sodium Chloride) 270 mls @ 270 mls/hr IV Q24H [facility] Last Admin: 02/21/23 16:30 Dose: 270 mls/hr Insulin Human Lispro (Insulin Lispro 100 Unit/Ml 3 Ml Vial) 0 unit SUBCUT QIDACHS [facility]; Protocol Last Admin: 02/21/23 16:29 Dose: 4 unit Losartan Potassium (Losartan Potassium 25 Mg Tablet) 25 mg PO DAILY [facility]; Protocol Morphine Sulfate (Morphine Sulfate 2 Mg/Ml Cartridge) 1 mg IVPUSH Q6H PRN; Protocol PRN Reason: Pain, Severe (Pain Scale 7-10) Last Admin: 02/21/23 16:29 Dose: 1 mg Ondansetron HCl (Ondansetron Hcl 4 Mg/2 Ml Vial) 4 mg IVPUSH Q8H PRN PRN Reason: Nausea and Vomiting Last Admin: 02/20/23 19:56 Dose: 4 mg Oxycodone HCl (Oxycodone Hcl Immed Release 5 Mg Tablet) 5 mg PO Q6H PRN PRN Reason: Pain, Severe (Pain Scale 7-10) Last Admin: 02/20/23 19:55 Dose: 5 mg Pharmacy Consult (Consult Rx Vancomycin Dosing) 1 each MISCELLANE DAILY PRN PRN Reason: Consult order Prednisone (Prednisone 20 Mg Tablet) 20 mg PO DAILY [facility] Last Admin: 02/21/23 08:28 Dose: 20 mg Tiotropium [place] (Tiotropium [place] 2.5 Mcg Inhaler) 2 puff INHALE RDAILY [facility] Last Admin: 02/21/23 08:04 Dose: 2 puff Allergies Allergies Allergy/AdvReac Type Severity Reaction Status Date / Time Penicillins [PENICILLINS] Allergy Severe RASH Verified 02/13/23 18:33 amoxicillin [AMOXICILLIN] Allergy Intermediate HIVES Verified 02/13/23 18:33 perflutren [From Definity] AdvReac Back Pain Verified 02/13/23 18:33 Assessment & Plan Assessment & Plan (1) Mental status at baseline: Status: Acute Code(s): R41.9 - Unspecified symptoms and signs involving cognitive functions and awareness Plan Patient is a 52 year old female with PMH DM, c/b chronic foot wound s/p L BKA, CAD, s/p LAD stent, chronic systolic CHF, COPD, asthma, p/t ED on 02/14 w/ diffuse pain, suffered PEA arrest, w/ ROSC w/in 15 minutes, arrest thought to be d/t hypoxia, of unclear etiology, intubated, admitted ICU and extubated. Pt was admitted inpatient and requires hospital stay for IV antibiotics for presumed IE, IRAIS pending safe discharge plan. Consult was placed for ? of capacity for making decision on medical issues. Impression: At this time, patient possesses capacity for making decisions on medical issues, however this could change. Please re-consult if mental status changes and capacity is in question. Total time managing care of this patient today _30___ minutes. Patient educated on: therapeutic strategies Informed Consent: understands
[2023-02-21] MEDS: carvediloL 3.125 MG TABLET PO (19:49)
[2023-02-21] MEDS: oxyCODONE HCl Immed Release 5 MG TABLET PO (19:49)
[2023-02-21] MEDS: Atorvastatin Calcium 80 MG TABLET PO (19:49)
[2023-02-21 19:55] LABS: Glucose, Whole Blood 191 mg/dL (60-115)
[2023-02-21 23:37] LABS: Glucose, Whole Blood 174 mg/dL (60-115)
[2023-02-22] VITALS (8 sets, daily range): BP systolic 148–161; BP diastolic 75–88; PULSE 79–93; RESP 14–20; TEMP 36–36.7; O2SAT 94–100
[2023-02-22] MEDS: Morphine Sulfate 2 MG/ML CARTRIDGE 1 MG IVPUSH ×3 (00:32→18:44)
[2023-02-22] MEDS: cefEPime HCl 1 GM in 0.9 % Sodium Chloride 50 ML IV ×3 (00:32→23:46)
[2023-02-22 05:59] LABS: Hematocrit 35.2 % (37.0-47.0); Hemoglobin 9.9 g/dl (12.0-16.0); Mean Corpuscular HGB Conc 28.1 g/dl (31.0-35.0); Mean Corpuscular Hemoglobin 19.6 pg (27.0-33.0); Mean Corpuscular Volume 69.7 fL (80.0-98.0); Platelet Count 118 X10*3/uL (160-400); Red Blood Count 5.05 X10*6/uL (4.20-5.50); Red Cell Distribution Width 23.9 % (11.0-16.0)
[2023-02-22 06:19] LABS: Anion Gap 10 (12-20); Blood Urea Nitrogen 27 mg/dL (9-16); Calcium 8.5 mg/dL (8.4-10.2); Carbon Dioxide 31 mmol/L (22-29); Chloride 107 mmol/L (96-108); Creatinine Clr Calc Pharmacy 88.6; Estimated Glomerular Filt Rate > 60; Glucose Fasting 161 mg/dL (60-99); Potassium 3.5 mmol/L (3.3-5.1); Sodium 144 mmol/L (135-145)
[2023-02-22 07:23] LABS: Glucose, Whole Blood 150 mg/dL (60-115)
[2023-02-22] MEDS: oxyCODONE HCl Immed Release 5 MG TABLET PO (08:18)
[2023-02-22] MEDS: Baclofen 10 MG TABLET PO ×2 (08:19→20:04)
[2023-02-22] MEDS: predniSONE 20 MG TABLET PO (08:19)
[2023-02-22] MEDS: Losartan Potassium 25 MG TABLET PO (08:19)
[2023-02-22] MEDS: carvediloL 3.125 MG TABLET PO ×2 (08:19→20:04)
[2023-02-22] MEDS: Acetaminophen 325 MG TABLET 975 MG PO ×2 (08:19→20:03)
[2023-02-22] MEDS: Clopidogrel Bisulfate 75 MG TABLET PO (08:19)
[2023-02-22] MEDS: Apixaban 5 MG TABLET PO ×2 (08:19→20:04)
[2023-02-22] MEDS: Fluticasone/Vilanterol 100/25 BLST.W.DEV 1 PUFF INHALE (08:39)
--- NOTE | 2023-02-22 09:44 | P.PNIM_ITS ---
Subjective Subjective Date of Service: 02/22/23 Interval History: anxious Physical Exam 2 Vital Signs: Vital Signs: Last Vital Signs Temp 97.2 F 02/22/23 07:27 Pulse 86 02/22/23 08:40 Resp 16 02/22/23 08:40 BP 149/85 H 02/22/23 07:27 Pulse Ox 100 02/22/23 07:27 O2 Del Method Room Air 02/22/23 07:27 O2 Flow Rate 1 02/21/23 04:00 FiO2 25 02/16/23 10:00 BMI result Body Mass Index 30.2 Const: General: cooperative, healthy appearing and no acute distress O rientation/consciousness: oriented to person, oriented to place and oriented to time HEENT: Head: Yes normal to inspection Neck: Carotids: no bruits Chest: Chest palpation & inspection: normal inspection of the chest Resp: Effort & Inspection: normal respiratory effort and able to speak in complete sentences Auscultation: clear to auscultation bilaterally Cardio: Rate: regular rate Heart sounds: S1 normal heart sound present and S2 normal heart sound present GI: Inspection: Yes normal to inspection Skin: Other: Left medial stump opening approximately 6 x 3 x 0.3 cm with fibrinous necrotic material overlying. Overall stump feels cool. General skin exam: no rashes or lesions noted Wounds: no wounds Neuro: General: oriented to person, oriented to place, oriented to time and CN's II-XI intact bilaterally Extrem: General: Yes normal to inspection, Yes full ROM and Yes no clubbing, cyanosis or edema Psych: Appearance: grossly normal and well kempt Speech and movement: N ormal speech and movement present Affect: normal affect Objective Data Active Medications Acetaminophen (Acetaminophen 325 Mg Tablet) 975 mg PO TID [facility] Last Admin: 02/22/23 08:19 Dose: 975 mg Documented By: JOSÉ MIGUEL Apixaban (Apixaban 5 Mg Tablet) 5 mg PO BID [facility] Last Admin: 02/22/23 08:19 Dose: 5 mg Documented By: JOSÉ MIGUEL Atorvastatin Calcium (Atorvastatin Calcium 80 Mg Tablet) 80 mg PO BEDTIME [facility] Last Admin: 02/21/23 19:49 Dose: 80 mg Documented By: IFTIKHAR Baclofen (Baclofen 10 Mg Tablet) 10 mg PO BID [facility] Last Admin: 02/22/23 08:19 Dose: 10 mg Documented By: JOSÉ MIGUEL Carvedilol (Carvedilol 3.125 Mg Tablet) 3.125 mg PO BID [facility]; Protocol Last Admin: 02/20/23 08:09 Dose: 3.125 mg Documented By: MELANIE Carvedilol (Carvedilol 3.125 Mg Tablet) 3.125 mg PO BID [facility]; Protocol Last Admin: 02/22/23 08:19 Dose: 3.125 mg Documented By: JOSÉ MIGUEL Clopidogrel Bisulfate (Clopidogrel Bisulfate 75 Mg Tablet) 75 mg PO DAILY [facility] Last Admin: 02/22/23 08:19 Dose: 75 mg Documented By: JOSÉ MIGUEL Dextrose (Dextrose 50 % 25 Gm/50 Ml Syringe) 25 gm IVPUSH Q15M PRN; Protocol PRN Reason: per Hypoglycemia Standing Ord. Fluticasone/Vilanterol (Fluticasone/Vilanterol 100/25 Blst.W.Dev) 1 puff INHALE RDAILY [facility] Last Admin: 02/22/23 08:39 Dose: 1 puff Documented By: SANIYA Furosemide (Furosemide 40 Mg Tablet) 40 mg PO DAILY [facility]; Protocol Last Admin: 02/19/23 08:29 Dose: 40 mg Documented By: ALEXIAORRDouglas Glucose (Glucose Gel 15 Gm Gel..Gram.) 15 gm PO Q15M PRN; Protocol PRN Reason: per Hypoglycemia Standing Ord. Cefepime HCl 1 gm/ Sodium (Chloride) 50 mls @ 100 mls/hr IV Q12H [facility] Last Infusion: 02/22/23 01:01 Dose: Infused Documented By: SAMPSON Vancomycin HCl 1,000 mg/ (Sodium Chloride) 270 mls @ 270 mls/hr IV Q24H [facility] Last Infusion: 02/21/23 18:10 Dose: Infused Documented By: JOSÉ MIGUEL Insulin Human Lispro (Insulin Lispro 100 Unit/Ml 3 Ml Vial) 0 unit SUBCUT QIDACHS [facility]; Protocol Last Admin: 02/22/23 07:43 Dose: Not Given Documented By: JOSÉ MIGUEL Non-Admin Reason: No Insulin Coverage Losartan Potassium (Losartan Potassium 25 Mg Tablet) 25 mg PO DAILY [facility]; Protocol Last Admin: 02/22/23 08:19 Dose: 25 mg Documented By: JOSÉ MIGUEL Morphine Sulfate (Morphine Sulfate 2 Mg/Ml Cartridge) 1 mg IVPUSH Q6H PRN; Protocol PRN Reason: Pain, Severe (Pain Scale 7-10) Last Admin: 02/22/23 06:20 Dose: 1 mg Documented By: SAMPSON Ondansetron HCl (Ondansetron Hcl 4 Mg/2 Ml Vial) 4 mg IVPUSH Q8H PRN PRN Reason: Nausea and Vomiting Last Admin: 02/20/23 19:56 Dose: 4 mg Documented By: LORE Oxycodone HCl (Oxycodone Hcl Immed Release 5 Mg Tablet) 5 mg PO Q6H PRN PRN Reason: Pain, Severe (Pain Scale 7-10) Last Admin: 02/22/23 08:18 Dose: 5 mg Documented By: JOSÉ MIGUEL Pharmacy Consult (Consult Rx Vancomycin Dosing) 1 each MISCELLANE DAILY PRN PRN Reason: Consult order Prednisone (Prednisone 20 Mg Tablet) 20 mg PO DAILY [facility] Last Admin: 02/22/23 08:19 Dose: 20 mg Documented By: JOSÉ MIGUEL Tiotropium [place] (Tiotropium [place] 2.5 Mcg Inhaler) 2 puff INHALE RDAILY [facility] Last Admin: 02/22/23 08:39 Dose: 2 puff Documented By: SANIYA Labs 02/22/23 05:42 02/22/23 05:42 Labs: Laboratory Results - last 24 hr 02/21/23 02/21/23 02/21/23 10:53 13:15 16:22 MCV MCH MCHC RDW Plt Count MPV Absolute Nucleated RBC Nucleated RBC % (auto) Anion Gap Estim Creat Clear Calc Estimated GFR POC Glucose 151 H 212 H Fasting Glucose Calcium Random Vancomycin 14.6 L 02/21/23 02/21/23 02/22/23 19:43 23:30 05:42 MCV 69.7 L MCH 19.6 L MCHC 28.1 L RDW 23.9 H Plt Count 118 L MPV TNP Absolute Nucleated RBC 0.000 Nucleated RBC % (auto) 0.0 Anion Gap 10 L Estim Creat Clear Calc 88.6 Estimated GFR > 60 POC Glucose 191 H 174 H Fasting Glucose 161 H Calcium 8.5 Random Vancomycin 02/22/23 07:17 MCV MCH MCHC RDW Plt Count MPV Absolute Nucleated RBC Nucleated RBC % (auto) Anion Gap Estim Creat Clear Calc Estimated GFR POC Glucose 150 H Fasting Glucose Calcium Random Vancomycin Assessment and Plan (1) Ischemic cardiomyopathy: Status: Acute (2) Acute hypernatremia: Status: Acute (3) PEA (Pulseless electrical activity): Status: Acute (4) Aortic valve vegetation: Status: Acute (5) Acute hypoxemic respiratory failure: Status: Acute (6) Infective endocarditis: Status: Acute Plan 52F PMH DM, c/b chronic foot wound s/p L BKA, CAD, s/p LAD stent, chronic systolic CHF, COPD, asthma, p/t ED on 02/14 w/ diffuse pain, suffered PEA arrest, w/ ROSC w/in 15 minutes, arrest thought to be d/t hypoxia, of unclear etiology, intubated, admitted ICU and extubated. Culture negative infective endocarditis Left [facility] many times AMA, has ROB showing aortic valve possible vegetations with negative blood cultures follow-up repeat blood cultures, no growth to date echocardiogram here demonstrating LVEF 10%, unchanged from before, not suggestion of vegetations ID appreciated - treat with 6 weeks of IV abx of Vanco and Cefepime (end mar) PEA Arrest s\p ROSC post CPR on admission unclear etiology, thought to be d/t hypoxia Blood cultures from admission still negative psych appreciated patient appears to have sufficient insight to make medical decisions Cardiac pause Had an episode of pause of 5 seconds with vomiting could be vasovagal restart coreg IRAIS 2/2 PEA arrest; resolved I\O monitor BMP thrombocytopenia Improved Acute hypernatremia resolved [id number] diabetes mellitus sliding scale insulin reduce home Lantus Congestive heart failure with reduced ejection fraction. Continue Coreg, losartan furosemide Coronary artery disease status post stent to proximal LAD Continue beta-connor, statin and Plavix COPD. No exacerbation during admission. Continue home inhalers Tobacco use disorder Counseled regarding cessation.?Refused nicotine patch Microcytic anemia Stable Paroxysmal atrial fibrillation On Eliquis DVT prophylaxis Eliquis reason for continued hospitalization:safe dispo Time Spent With Patient Time: Total time managing care of this patient today ____ minutes. Quality Stroke Does the patient have a stroke diagnosis?: No VTE Prior VTE?: No VTE Risk Level:: Medical - moderate - high VTE Device Contraindication: N/A - Device Ordered VTE Drug Contraindication: N/A - Med Ordered
[2023-02-22 11:39] LABS: Glucose, Whole Blood 189 mg/dL (60-115)
[2023-02-22] MEDS: Insulin Lispro 100 UNIT/ML 3 ML VIAL SUBCUT ×3 (12:14→20:11)
--- NOTE | 2023-02-22 12:49 | MHC.CM.PN ---
Per ROUNDS discussion, Patient is medically cleared for dc. PT is recommending STR and Patient needs 6 weeks of IV ABT; [facility] has accepted Patient (Patient and her Daughter are aware of and in agreement with the dc plan). [facility] anticipates having a bed and HNE auth by tomorrow. CM will follow. MD is aware.
--- NOTE | 2023-02-22 14:16 | MHC.SL.SWA ---
Speech Pathologist Impression: Risk of aspiration, oropharyngeal dysphagia Dysphasia Diet Status: Recommend UPGRADE to THIN liquids via TEASPOON ONLY. Liquid Consistency and Strategies for Safe Swallow: Liquid Intake Recommendation: Thin Liquid Intake Strategies: No Straws Liquids by Teaspoon Only Solid Food Consistency: Dietary Recommendations: Pureed (NDD1) Oral Medication Intake: Crushed with Puree Please contact the pharmacy regarding appropriate crushable or liquid drug formulations that are available whenever modified delivery is recommended. Compensatory Strategies and Precautions to be Taken for Safe Swallow: Sitting Upright (90 deg) No Straw Liquids from Spoon Small Bites and Sips Rate of Ingestion Change Supervision While Eating and Drinking for Safe Swallow: Total Assistance (1:1) Swallowing Recommended Treatments: Compens. Strategy Educat. Recommendation for Speech: Inpatient Speech Therapy Recommend UPGRADE to THIN liquids via TEASPOON ONLY. Recommend patient continue w/ PUREE solids and MEDS CRUSHED in PUREE. Pt requires total 1:1 assist feeding. MD, RN, and RD notified of changes. [employer] changed diet order in Expanse. [employer] to continue to follow. Retail Furniture Sales Clinican/Clinical Fellow: No Supervisory Statement: I have reviewed and agree with the student/clinical fellow's documentation: N/A Speech Language Pathologist: Deanna Combs M.A., [facility]
[2023-02-22] MEDS: vancomycin HCL 1,000 MG in 0.9 % Sodium Chloride 250 ML 270 MG IV (14:32)
[2023-02-22 16:51] LABS: Glucose, Whole Blood 172 mg/dL (60-115)
[2023-02-22] MEDS: Atorvastatin Calcium 80 MG TABLET PO (20:04)
[2023-02-22] MEDS: ondansetron HCL 4 MG/2 ML VIAL IVPUSH (20:08)
[2023-02-22 20:31] LABS: Glucose, Whole Blood 168 mg/dL (60-115)
--- NOTE | 2023-02-22 21:48 | ECG_ITS ---
Test Reason : Chest pain Blood Pressure : / mmHG Vent. Rate : 097 BPM Atrial Rate : 097 BPM P-R Int : 158 ms QRS Dur : 096 ms QT Int : 384 ms P-R-T Axes : 072 063 104 degrees QTc Int : 487 ms Normal sinus rhythm Low voltage QRS Nonspecific T wave abnormality Cannot rule out Anterior infarct (cited on or before 26-JAN-2023) Abnormal ECG When compared with ECG of 20-FEB-2023 12:24, QT has shortened Referred By: Jaren Schrader Electronically Signed By:JARRED BARRETO
[2023-02-22] MEDS: OLANZapine 10 MG VIAL 5 MG IM (23:42)
[2023-02-22 23:50] LABS: Troponin-I High Sensitivity 97.5 ng/L (<3.5-17.0)
[2023-02-23] VITALS (7 sets, daily range): BP systolic 122–149; BP diastolic 59–87; PULSE 78–119; RESP 16–22; TEMP 36.2–37.2; O2SAT 92–100
[2023-02-23] MEDS: Morphine Sulfate 2 MG/ML CARTRIDGE 1 MG IVPUSH ×3 (00:29→22:54)
[2023-02-23] MEDS: OLANZapine 10 MG VIAL IM (02:10)
[2023-02-23 06:52] LABS: Hematocrit 34.1 % (37.0-47.0); Hemoglobin 9.4 g/dl (12.0-16.0); Mean Corpuscular HGB Conc 27.6 g/dl (31.0-35.0); Mean Corpuscular Hemoglobin 19.9 pg (27.0-33.0); Mean Corpuscular Volume 72.1 fL (80.0-98.0); Platelet Count 144 X10*3/uL (160-400); Red Blood Count 4.73 X10*6/uL (4.20-5.50); Red Cell Distribution Width 24.2 % (11.0-16.0); White Blood Count 13.4 X10*3/uL (4.8-10.8)
[2023-02-23 07:06] LABS: Anion Gap 15 (12-20); Blood Urea Nitrogen 27 mg/dL (9-16); Carbon Dioxide 26 mmol/L (22-29); Chloride 107 mmol/L (96-108); Estimated Glomerular Filt Rate > 60; Glucose Fasting 135 mg/dL (60-99); Potassium 3.8 mmol/L (3.3-5.1); Sodium 144 mmol/L (135-145)
[2023-02-23 07:44] LABS: Glucose, Whole Blood 118 mg/dL (60-115)
--- NOTE | 2023-02-23 10:32 | HO.PM.IMPN ---
Subjective Subjective Date of Service: 02/23/23 Interval History: was apparently agitated overnight, received 15mg zyprexa Physical Exam Vital Signs: Vital Signs: Last Vital Signs Temp 97.2 F 02/23/23 07:38 Pulse 110 H 02/23/23 07:38 Resp 20 02/23/23 07:38 BP 149/59 H 02/23/23 07:38 Pulse Ox 92 02/23/23 07:38 O2 Del Method Room Air 02/23/23 07:38 O2 Flow Rate 1 02/21/23 04:00 FiO2 25 02/16/23 10:00 BMI result Body Mass Index 30.2 ill appearing, lethargic, confused, left bka Objective Data Active Medications Acetaminophen (Acetaminophen 325 Mg Tablet) 975 mg PO TID [facility] Last Admin: 02/23/23 09:46 Dose: Not Given Documented By: KIRSTEN Non-Admin Reason: unable to swallow pills safely Apixaban (Apixaban 5 Mg Tablet) 5 mg PO BID [facility] Last Admin: 02/23/23 09:45 Dose: Not Given Documented By: KIRSTEN Non-Admin Reason: unable to swallow pills safely Atorvastatin Calcium (Atorvastatin Calcium 80 Mg Tablet) 80 mg PO BEDTIME [facility] Last Admin: 02/22/23 20:04 Dose: 80 mg Documented By: CHARLIE Baclofen (Baclofen 10 Mg Tablet) 10 mg PO BID [facility] Last Admin: 02/23/23 09:45 Dose: Not Given Documented By: KIRSTEN Non-Admin Reason: unable to swallow pills safely Carvedilol (Carvedilol 3.125 Mg Tablet) 3.125 mg PO BID [facility]; Protocol Last Admin: 02/20/23 08:09 Dose: 3.125 mg Documented By: MELANIE Carvedilol (Carvedilol 3.125 Mg Tablet) 3.125 mg PO BID [facility]; Protocol Last Admin: 02/23/23 09:45 Dose: Not Given Documented By: KIRSTEN Non-Admin Reason: unable to swallow pills safely Clopidogrel Bisulfate (Clopidogrel Bisulfate 75 Mg Tablet) 75 mg PO DAILY [facility] Last Admin: 02/23/23 09:45 Dose: Not Given Documented By: KIRSTEN Non-Admin Reason: unable to swallow pills safely Dextrose (Dextrose 50 % 25 Gm/50 Ml Syringe) 25 gm IVPUSH Q15M PRN; Protocol PRN Reason: per Hypoglycemia Standing Ord. Fluticasone/Vilanterol (Fluticasone/Vilanterol 100/25 Blst.W.Dev) 1 puff INHALE RDAILY [facility] Last Admin: 02/23/23 07:37 Dose: Not Given Documented By: GILES Non-Admin Reason: Patient Refused Furosemide (Furosemide 40 Mg Tablet) 40 mg PO DAILY [facility]; Protocol Last Admin: 02/19/23 08:29 Dose: 40 mg Documented By: MISHA Glucose (Glucose Gel 15 Gm Gel..Gram.) 15 gm PO Q15M PRN; Protocol PRN Reason: per Hypoglycemia Standing Ord. Cefepime HCl 1 gm/ Sodium (Chloride) 50 mls @ 100 mls/hr IV Q12H [facility] Last Infusion: 02/23/23 00:22 Dose: Infused Documented By: CHARLIE Vancomycin HCl 1,000 mg/ (Sodium Chloride) 270 mls @ 270 mls/hr IV Q24H [facility] Last Infusion: 02/22/23 16:04 Dose: Infused Documented By: JOSÉ MIGUEL Insulin Human Lispro (Insulin Lispro 100 Unit/Ml 3 Ml Vial) 0 unit SUBCUT QIDACHS [facility]; Protocol Last Admin: 02/23/23 08:49 Dose: Not Given Documented By: KIRSTEN Non-Admin Reason: No Insulin Coverage Losartan Potassium (Losartan Potassium 25 Mg Tablet) 25 mg PO DAILY [facility]; Protocol Last Admin: 02/23/23 09:45 Dose: Not Given Documented By: KIRSTEN Non-Admin Reason: unable to swallow pills safely Morphine Sulfate (Morphine Sulfate 2 Mg/Ml Cartridge) 1 mg IVPUSH Q6H PRN; Protocol PRN Reason: Pain, Severe (Pain Scale 7-10) Last Admin: 02/23/23 06:32 Dose: 1 mg Documented By: CHARLIE Ondansetron HCl (Ondansetron Hcl 4 Mg/2 Ml Vial) 4 mg IVPUSH Q8H PRN PRN Reason: Nausea and Vomiting Last Admin: 02/22/23 20:08 Dose: 4 mg Documented By: CHARLIE Oxycodone HCl (Oxycodone Hcl Immed Release 5 Mg Tablet) 5 mg PO Q6H PRN PRN Reason: Pain, Severe (Pain Scale 7-10) Last Admin: 02/22/23 08:18 Dose: 5 mg Documented By: JOSÉ MIGUEL Pharmacy Consult (Consult Rx Vancomycin Dosing) 1 each MISCELLANE DAILY PRN PRN Reason: Consult order Prednisone (Prednisone 20 Mg Tablet) 20 mg PO DAILY [facility] Last Admin: 02/23/23 09:46 Dose: Not Given Documented By: KIRSTEN Non-Admin Reason: unable to swallow pills safely Tiotropium [place] (Tiotropium [place] 2.5 Mcg Inhaler) 2 puff INHALE RDAILY [facility] Last Admin: 02/23/23 07:37 Dose: Not Given Documented By: GILES Non-Admin Reason: Patient Refused Labs 02/23/23 06:32 02/23/23 06:32 Labs: Laboratory Results - last 24 hr 02/22/23 02/22/23 02/22/23 11:27 16:48 20:29 MCV MCH MCHC RDW Plt Count MPV Absolute Nucleated RBC Nucleated RBC % (auto) Anion Gap Estim Creat Clear Calc Estimated GFR POC Glucose 189 H 172 H 168 H Fasting Glucose Calcium 02/23/23 02/23/23 06:32 07:41 MCV 72.1 L MCH 19.9 L MCHC 27.6 L RDW 24.2 H Plt Count 144 L MPV Not Reportable Absolute Nucleated RBC 0.000 Nucleated RBC % (auto) 0.0 Anion Gap 15 Estim Creat Clear Calc 83.0 Estimated GFR > 60 POC Glucose 118 H Fasting Glucose 135 H Calcium 9.0 Assessment and Plan (1) Ischemic cardiomyopathy: Status: Acute (2) Acute hypernatremia: Status: Acute (3) PEA (Pulseless electrical activity): Status: Acute (4) Aortic valve vegetation: Status: Acute (5) Acute hypoxemic respiratory failure: Status: Acute (6) Infective endocarditis: Status: Acute Plan 52F PMH DM, c/b chronic foot wound s/p L BKA, CAD, s/p LAD stent, chronic systolic CHF, COPD, asthma, p/t ED on 02/14 w/ diffuse pain, suffered PEA arrest, w/ ROSC w/in 15 minutes, arrest thought to be d/t hypoxia, of unclear etiology, intubated, admitted ICU and extubated. Culture negative infective endocarditis Left [facility] many times AMA, has ROB showing aortic valve possible vegetations with negative blood cultures follow-up repeat blood cultures, no growth to date echocardiogram here demonstrating LVEF 10%, unchanged from before, not suggestion of vegetations ID appreciated - treat with 6 weeks of IV abx of Vanco and Cefepime (end mar) PEA Arrest s\p ROSC post CPR on admission unclear etiology, thought to be d/t hypoxia Blood cultures from admission still negative acute toxic metabolic encephalopathy check vbg suspect due to xyprexa, monitor psych appreciated patient appears to have sufficient insight to make medical decisions Cardiac pause Had an episode of pause of 5 seconds with vomiting could be vasovagal restart coreg IRAIS 2/2 PEA arrest; resolved I\O monitor BMP thrombocytopenia Improved Acute hypernatremia resolved Pma-krdxltq-vzxcyczpp diabetes mellitus sliding scale insulin reduce home Lantus Congestive heart failure with reduced ejection fraction. Continue Coreg, losartan furosemide Coronary artery disease status post stent to proximal LAD Continue beta-connor, statin and Plavix COPD. No exacerbation during admission. Continue home inhalers Tobacco use disorder Counseled regarding cessation.?Refused nicotine patch Microcytic anemia Stable Paroxysmal atrial fibrillation On Eliquis DVT prophylaxis Eliquis reason for continued hospitalization:ams Time Spent With Patient Time: Total time managing care of this patient today ____ minutes. Quality Stroke Does the patient have a stroke diagnosis?: No VTE Prior VTE?: No VTE Risk Level:: Medical - moderate - high VTE Device Contraindication: N/A - Device Ordered VTE Drug Contraindication: N/A - Med Ordered
[2023-02-23 10:52] LABS: VBG Base Excess 7.4 mmol/L; VBG HCO3 30 mmol/L (22-26); VBG pCO2 37 mmHg; VBG pH 7.51 (7.32-7.43); VBG pO2 41 mmHg; Venous Blood Gas Refer to POC result
[2023-02-23 11:33] LABS: Glucose, Whole Blood 125 mg/dL (60-115)
[2023-02-23] MEDS: cefEPime HCl 1 GM in 0.9 % Sodium Chloride 50 ML IV (13:02)
[2023-02-23] MEDS: Heparin Sodium,Porcine Flush 50 UNITS/5 ML SYRINGE IVFLUSH (13:40)
[2023-02-23 16:08] LABS: Glucose, Whole Blood 145 mg/dL (60-115)
[2023-02-23 16:17] LABS: Vancomycin Random 10.6 mcg/mL (15-20)
--- NOTE | 2023-02-23 16:41 | HE.PHANOTE ---
RE VANCO TROUGH WAS 10.6 BUT PT HAS ENDOCARDITIS. WILL GO TO 750MNG Q12, INCREASING BOTH TDD DOSE AND FREQUENCY. PER INSIGHT, AUC 591, TROUGH OF 20. CAN PULL BACK TOMORROW IF NEEDED AMINAH
[2023-02-23] MEDS: vancomycin HCL 750 MG in 0.9 % Sodium Chloride 250 ML 265 MG IV (17:36)
[2023-02-23 20:14] LABS: Glucose, Whole Blood 139 mg/dL (60-115)
[2023-02-24] MEDS: Heparin Sodium,Porcine Flush 50 UNITS/5 ML SYRINGE IVFLUSH ×2 (00:15→09:43)
[2023-02-24] MEDS: cefEPime HCl 1 GM in 0.9 % Sodium Chloride 50 ML IV ×2 (00:15→12:48)
[2023-02-24 03:59] VITALS: BP 137/79; PULSE 99; RESP 18; TEMP 36.9; O2SAT 95
[2023-02-24] MEDS: vancomycin HCL 750 MG in 0.9 % Sodium Chloride 250 ML 265 MG IV (04:48)
[2023-02-24] MEDS: Morphine Sulfate 2 MG/ML CARTRIDGE 1 MG IVPUSH (04:55)
[2023-02-24 07:30] LABS: Hematocrit 30.5 % (37.0-47.0); Hemoglobin 8.7 g/dl (12.0-16.0); Mean Corpuscular HGB Conc 28.5 g/dl (31.0-35.0); Mean Corpuscular Hemoglobin 20.4 pg (27.0-33.0); Mean Corpuscular Volume 71.6 fL (80.0-98.0); NRBC Pct Auto 0.3 /100WBC (0.0-0.2); PLT CLUMP 1; Red Cell Distribution Width 24.5 % (11.0-16.0)
[2023-02-24 07:31] LABS: Red Blood Count 4.26 X10*6/uL (4.20-5.50)
[2023-02-24 07:40] LABS: Anion Gap 19 (12-20); Blood Urea Nitrogen 31 mg/dL (9-16); Calcium 8.7 mg/dL (8.4-10.2); Carbon Dioxide 23 mmol/L (22-29); Chloride 109 mmol/L (96-108); Creatinine Clr Calc Pharmacy 75.3; Estimated Glomerular Filt Rate > 60; Glucose Fasting 147 mg/dL (60-99); Potassium 3.9 mmol/L (3.3-5.1); Sodium 147 mmol/L (135-145)
[2023-02-24 07:49] LABS: White Blood Count 9.2 X10*3/uL (4.8-10.8)
[2023-02-24 07:50] LABS: Platelet Count 150 X10*3/uL (160-400)
[2023-02-24 07:57] LABS: Glucose, Whole Blood 152 mg/dL (60-115)
[2023-02-24 08:00] VITALS: BP 142/86; PULSE 101; RESP 18; TEMP 36.4; O2SAT 95
[2023-02-24] MEDS: Dextrose 5 % and 0.45 % NaCl 1,000 ML 80 ML IVCONT ×2 (09:43→23:04)
--- NOTE | 2023-02-24 10:32 | HO.PM.IMPN ---
Subjective Subjective Date of Service: 02/24/23 Interval History: agitated, confused Physical Exam Vital Signs: Vital Signs: Last Vital Signs Temp 97.6 F 02/24/23 08:00 Pulse 101 H 02/24/23 08:00 Resp 18 02/24/23 08:00 BP 142/86 H 02/24/23 08:00 Pulse Ox 95 02/24/23 08:00 O2 Del Method Room Air 02/24/23 08:00 O2 Flow Rate 1 02/21/23 04:00 FiO2 25 02/16/23 10:00 BMI result Body Mass Index 30.2 ill appearing, lethargic, confused, left bka Objective Data Active Medications Acetaminophen (Acetaminophen 325 Mg Tablet) 975 mg PO TID [facility] Last Admin: 02/24/23 09:48 Dose: Not Given Documented By: KIRSTEN Non-Admin Reason: Patient Refused Apixaban (Apixaban 5 Mg Tablet) 5 mg PO BID [facility] Last Admin: 02/24/23 09:48 Dose: Not Given Documented By: KIRSTEN Non-Admin Reason: Patient Refused Atorvastatin Calcium (Atorvastatin Calcium 80 Mg Tablet) 80 mg PO BEDTIME [facility] Last Admin: 02/23/23 23:06 Dose: Not Given Documented By: CHARLIE Non-Admin Reason: Patient Refused Baclofen (Baclofen 10 Mg Tablet) 10 mg PO BID [facility] Last Admin: 02/24/23 09:51 Dose: Not Given Documented By: KIRSTEN Non-Admin Reason: Patient Refused Carvedilol (Carvedilol 3.125 Mg Tablet) 3.125 mg PO BID [facility]; Protocol Last Admin: 02/24/23 09:51 Dose: Not Given Documented By: KIRSTEN Non-Admin Reason: Patient Refused Clopidogrel Bisulfate (Clopidogrel Bisulfate 75 Mg Tablet) 75 mg PO DAILY [facility] Last Admin: 02/24/23 09:52 Dose: Not Given Documented By: KIRSTEN Non-Admin Reason: Patient Refused Dextrose (Dextrose 50 % 25 Gm/50 Ml Syringe) 25 gm IVPUSH Q15M PRN; Protocol PRN Reason: per Hypoglycemia Standing Ord. Fluticasone/Vilanterol (Fluticasone/Vilanterol 100/25 Blst.W.Dev) 1 puff INHALE RDAILY [facility] Last Admin: 02/24/23 07:53 Dose: Not Given Documented By: SANIYA Non-Admin Reason: Patient Condition Contraindication Furosemide (Furosemide 40 Mg Tablet) 40 mg PO DAILY [facility]; Protocol Last Admin: 02/19/23 08:29 Dose: 40 mg Documented By: MISHA Glucose (Glucose Gel 15 Gm Gel..Gram.) 15 gm PO Q15M PRN; Protocol PRN Reason: per Hypoglycemia Standing Ord. Heparin Sodium (Porcine) (Heparin Sodium,Porcine Flush 50 Units/5 Ml Syringe) 50 units IVFLUSH QSHIFT [facility] Last Admin: 02/24/23 09:43 Dose: 50 units Documented By: KIRSTEN Cefepime HCl 1 gm/ Sodium (Chloride) 50 mls @ 100 mls/hr IV Q12H [facility] Last Infusion: 02/24/23 00:58 Dose: Infused Documented By: CHARLIE Vancomycin HCl 750 mg/ Sodium (Chloride) 265 mls @ 265 mls/hr IV Q12H [facility] Last Infusion: 02/24/23 05:50 Dose: Infused Documented By: CHARLIE Dextrose/Sodium Chloride (D51/2ns) 1,000 mls @ 80 mls/hr IVCONT .[id number] [facility] Last Admin: 02/24/23 09:43 Dose: 80 mls/hr Documented By: KIRSTEN Insulin Human Lispro (Insulin Lispro 100 Unit/Ml 3 Ml Vial) 0 unit SUBCUT QIDACHS [facility]; Protocol Last Admin: 02/24/23 09:02 Dose: Not Given Documented By: KIRSTEN Non-Admin Reason: No PO intake Losartan Potassium (Losartan Potassium 25 Mg Tablet) 25 mg PO DAILY [facility]; Protocol Last Admin: 02/24/23 09:52 Dose: Not Given Documented By: KIRSTEN Non-Admin Reason: Patient Refused Morphine Sulfate (Morphine Sulfate 2 Mg/Ml Cartridge) 1 mg IVPUSH Q6H PRN; Protocol PRN Reason: Pain, Severe (Pain Scale 7-10) Last Admin: 02/24/23 04:55 Dose: 1 mg Documented By: CHARLIE Ondansetron HCl (Ondansetron Hcl 4 Mg/2 Ml Vial) 4 mg IVPUSH Q8H PRN PRN Reason: Nausea and Vomiting Last Admin: 02/22/23 20:08 Dose: 4 mg Documented By: CHARLIE Prednisone (Prednisone 20 Mg Tablet) 20 mg PO DAILY [facility] Last Admin: 02/24/23 09:52 Dose: Not Given Documented By: KIRSTEN Non-Admin Reason: Patient Refused Tiotropium [place] (Tiotropium [place] 2.5 Mcg Inhaler) 2 puff INHALE RDAILY [facility] Last Admin: 02/24/23 07:53 Dose: Not Given Documented By: SANIYA Non-Admin Reason: Patient Condition Contraindication Labs 02/24/23 06:39 02/24/23 06:39 Labs: Laboratory Results - last 24 hr 02/23/23 02/23/23 02/23/23 10:34 11:21 15:32 MCV MCH MCHC RDW Plt Count MPV Absolute Nucleated RBC Nucleated RBC % (auto) VBG pH 7.51 H VBG pCO2 37 VBG pO2 41 VBG HCO3 30 H VBG O2 Saturation 62.0 VBG Base Excess 7.4 Anion Gap Estim Creat Clear Calc Estimated GFR POC Glucose 125 H Fasting Glucose Calcium Random Vancomycin 10.6 L 02/23/23 02/23/23 02/24/23 16:04 20:10 06:39 MCV 71.6 L MCH 20.4 L MCHC 28.5 L RDW 24.5 H Plt Count 150 L MPV Not Reportable Absolute Nucleated RBC 0.030 H Nucleated RBC % (auto) 0.3 H VBG pH VBG pCO2 VBG pO2 VBG HCO3 VBG O2 Saturation VBG Base Excess Anion Gap 19 Estim Creat Clear Calc 75.3 Estimated GFR > 60 POC Glucose 145 H 139 H Fasting Glucose 147 H Calcium 8.7 Random Vancomycin 02/24/23 07:53 MCV MCH MCHC RDW Plt Count MPV Absolute Nucleated RBC Nucleated RBC % (auto) VBG pH VBG pCO2 VBG pO2 VBG HCO3 VBG O2 Saturation VBG Base Excess Anion Gap Estim Creat Clear Calc Estimated GFR POC Glucose 152 H Fasting Glucose Calcium Random Vancomycin Assessment and Plan (1) Ischemic cardiomyopathy: Status: Acute (2) Acute hypernatremia: Status: Acute (3) PEA (Pulseless electrical activity): Status: Acute (4) Aortic valve vegetation: Status: Acute (5) Acute hypoxemic respiratory failure: Status: Acute (6) Infective endocarditis: Status: Acute Plan 52F PMH DM, c/b chronic foot wound s/p L BKA, CAD, s/p LAD stent, chronic systolic CHF, COPD, asthma, p/t ED on 02/14 w/ diffuse pain, suffered PEA arrest, w/ ROSC w/in 15 minutes, arrest thought to be d/t hypoxia, of unclear etiology, intubated, admitted ICU and extubated. Culture negative infective endocarditis Left [facility] many times AMA, has ROB showing aortic valve possible vegetations with negative blood cultures follow-up repeat blood cultures, no growth to date echocardiogram here demonstrating LVEF 10%, unchanged from before, not suggestion of vegetations ID appreciated - treat with 6 weeks of IV abx of Vanco and Cefepime (end mar) PEA Arrest s\p ROSC post CPR on admission unclear etiology, thought to be d/t hypoxia Blood cultures from admission still negative acute toxic metabolic encephalopathy follow up ct head left lung opacity ?pneumonia conitnue broad spectrum antibiotics, id follow up psych appreciated patient appeared to have sufficient insight to make medical decisions (prior to current encephalopathy) Cardiac pause Had an episode of pause of 5 seconds with vomiting could be vasovagal restart coreg IRAIS 2/2 PEA arrest; resolved I\O monitor BMP thrombocytopenia Improved Acute hypernatremia resolved Iph-saavoio-qiufynbzv diabetes mellitus sliding scale insulin reduce home Lantus Congestive heart failure with reduced ejection fraction. Continue Coreg, losartan furosemide Coronary artery disease status post stent to proximal LAD Continue beta-connor, statin and Plavix COPD. No exacerbation during admission. Continue home inhalers Tobacco use disorder Counseled regarding cessation.?Refused nicotine patch Microcytic anemia Stable Paroxysmal atrial fibrillation On Eliquis DVT prophylaxis Eliquis reason for continued hospitalization:ams Time Spent With Patient Time: Total time managing care of this patient today ____ minutes. Quality Stroke Does the patient have a stroke diagnosis?: No VTE Prior VTE?: No VTE Risk Level:: Medical - moderate - high VTE Device Contraindication: N/A - Device Ordered VTE Drug Contraindication: N/A - Med Ordered
--- NOTE | 2023-02-24 10:39 | MHC.CM.PN ---
Per ROUNDS discussion, Patient is still acute and not yet medically cleared for dc. DC plan is TBD pending prognosis. CM will follow.
[2023-02-24 11:54] LABS: Ammonia 36 umol/L (13-55)
[2023-02-24 12:00] VITALS: BP 156/94; PULSE 97; RESP 20; TEMP 36.8; O2SAT 94
[2023-02-24 12:20] LABS: Alanine Aminotransferase 24 U/L (0-31); Albumin Level 3.3 g/dL (3.5-5.0); Alkaline Phosphatase 63 U/L (39-117); Aspartate Amino Transferase 29 U/L (5-31); Bilirubin Direct 1.6 mg/dL (0.0-0.5); Bilirubin Total 3.9 mg/dL (0.0-1.0); Total Protein 5.4 g/dL (6.5-8.0)
[2023-02-24 12:26] LABS: Glucose, Whole Blood 187 mg/dL (60-115)
[2023-02-24] MEDS: Insulin Lispro 100 UNIT/ML 3 ML VIAL SUBCUT ×3 (12:49→22:49)
--- NOTE | 2023-02-24 13:36 | P.CNGI_ITS ---
History of Present Illness Data of Consult Service Date: 02/24/23 Requesting physician: Jaren Schrader Primary Care Provider: Danica Vallejo NP HPI Reason for consult: Elevated LFTs This is a 52-year-old female past medical history of severe COPD, type 2 diabetes, PVD with history of left below-knee amputation now with open wound, multiple recent admissions to the hospital (would leave AMA) for endocarditis versuselastoma and severe cardiomyopathy with EF of 10%, who presented to the hospital for worsening lower extremity redness with course complicated by PEA arrest in the emergency room. Today is day 11 of admission and undergoing management for endocarditis, severe cardiomyopathy, and encephalopathy. Noted to have rising bilirubin on labs for which gastroenterology has been consulted. Pt herself is not able to provide any history. When evaluated at bedside she was noted to be awake but minimally responding to verbal and physical cues. Review of Systems 2 Review of Systems: Yes all other systems are reviewed and are negative PMFSH Past Medical History Medical History (Updated 02/24/23 @ 16:24 by Marleni Aceves MD) Ischemic cardiomyopathy Aortic valve vegetation Back pain Septic pulmonary embolism Below-knee amputation of left lower extremity Coronary artery disease Hyperglycemia due to diabetes mellitus Cellulitis in diabetic foot PAD (peripheral artery disease) 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 Diabetic foot infection Osteomyelitis Atrial tachycardia GERD (gastroesophageal reflux disease) Atherosclerotic cardiovascular disease Essential hypertension COPD (chronic obstructive pulmonary disease) Asthma Diabetes Hypertension Family History Family History Mother Hx of CABG Sister CAD (coronary artery disease) Family history: reviewed and not pertinent Surgical History Surgical History Status post below-knee amputation of left lower extremity (09/20/22) History of toe surgery (09/22/21) History of esophagogastroduodenoscopy (EGD) Social History Social History Household Members: Spouse Household Members Other:: 2 Housing: Apartment Do you presently have visiting nurse or other home services: Yes (twice a day) Unable to assess alcohol history related to: Refusing to respond Alcohol intake: former Patient Tobacco Use Status: Never used Tobacco Tobacco use type: Cigarette Cigarette Packs Per Day: 0.5 Cigarettes Per Day: 10.0 Years Smoked: since 8 years old Smoked in Last 30 Days: Yes e-Cigarette/Vaping Use: Never Used Second Hand Smoke Exposure: Yes Use of substances other than those prescribed or required for medical reasons: Unable to respond Substance Use Type: Painkillers Currently Displaying Signs/Symptoms of Drug Intoxication Withdrawal: No Advance Directives: Yes Advance Directives on File: Yes Advance Directives Date on File: 09/22/22 Nutrition Risks: On aspiration precautions Patient : No : No Poor oral hygiene: Yes service: No Current occupational status: disabled Meds Allergies Allergy/AdvReac Type Severity Reaction Status Date / Time Penicillins [PENICILLINS] Allergy Severe RASH Verified 02/13/23 18:33 amoxicillin [AMOXICILLIN] Allergy Intermediate HIVES Verified 02/13/23 18:33 perflutren [From Definity] AdvReac Back Pain Verified 02/13/23 18:33 Active Medications: Current Medications Acetaminophen (Acetaminophen 325 Mg Tablet) 975 mg PO TID [facility] Last Admin: 02/24/23 09:48 Dose: Not Given Apixaban (Apixaban 5 Mg Tablet) 5 mg PO BID [facility] Last Admin: 02/24/23 09:48 Dose: Not Given Atorvastatin Calcium (Atorvastatin Calcium 80 Mg Tablet) 80 mg PO BEDTIME [facility] Last Admin: 02/23/23 23:06 Dose: Not Given Baclofen (Baclofen 10 Mg Tablet) 10 mg PO BID [facility] Last Admin: 02/24/23 09:51 Dose: Not Given Carvedilol (Carvedilol 3.125 Mg Tablet) 3.125 mg PO BID [facility]; Protocol Last Admin: 02/24/23 09:51 Dose: Not Given Clopidogrel Bisulfate (Clopidogrel Bisulfate 75 Mg Tablet) 75 mg PO DAILY [facility] Last Admin: 02/24/23 09:52 Dose: Not Given Dextrose (Dextrose 50 % 25 Gm/50 Ml Syringe) 25 gm IVPUSH Q15M PRN; Protocol PRN Reason: per Hypoglycemia Standing Ord. Fluticasone/Vilanterol (Fluticasone/Vilanterol 100/25 Blst.W.Dev) 1 puff INHALE RDAILY [facility] Last Admin: 02/24/23 07:53 Dose: Not Given Furosemide (Furosemide 40 Mg Tablet) 40 mg PO DAILY [facility]; Protocol Last Admin: 02/19/23 08:29 Dose: 40 mg Glucose (Glucose Gel 15 Gm Gel..Gram.) 15 gm PO Q15M PRN; Protocol PRN Reason: per Hypoglycemia Standing Ord. Heparin Sodium (Porcine) (Heparin Sodium,Porcine Flush 50 Units/5 Ml Syringe) 50 units IVFLUSH QSHIFT [facility] Last Admin: 02/24/23 09:43 Dose: 50 units Cefepime HCl 1 gm/ Sodium (Chloride) 50 mls @ 100 mls/hr IV Q12H [facility] Last Infusion: 02/24/23 13:33 Dose: Infused Vancomycin HCl 750 mg/ Sodium (Chloride) 265 mls @ 265 mls/hr IV Q12H [facility] Last Infusion: 02/24/23 05:50 Dose: Infused Dextrose/Sodium Chloride (D51/2ns) 1,000 mls @ 80 mls/hr IVCONT .[id number] [facility] Last Infusion: 02/24/23 13:33 Dose: 80 mls/hr Insulin Human Lispro (Insulin Lispro 100 Unit/Ml 3 Ml Vial) 0 unit SUBCUT QIDACHS [facility]; Protocol Last Admin: 02/24/23 12:49 Dose: 2 unit Lactulose (Lactulose 20 Gm/30 Ml Solution) 20 gm PO BID [facility] Losartan Potassium (Losartan Potassium 25 Mg Tablet) 25 mg PO DAILY [facility]; Protocol Last Admin: 02/24/23 09:52 Dose: Not Given Ondansetron HCl (Ondansetron Hcl 4 Mg/2 Ml Vial) 4 mg IVPUSH Q8H PRN PRN Reason: Nausea and Vomiting Last Admin: 02/22/23 20:08 Dose: 4 mg Prednisone (Prednisone 20 Mg Tablet) 20 mg PO DAILY [facility] Last Admin: 02/24/23 09:52 Dose: Not Given Tiotropium [place] (Tiotropium [place] 2.5 Mcg Inhaler) 2 puff INHALE RDAILY [facility] Last Admin: 02/24/23 07:53 Dose: Not Given Home Medications Medication Instructions Recorded Confirmed Last Taken Type clopidogrel 75 mg tablet 75 mg PO DAILY 11/24/22 02/14/23 Unknown History nicotine 21 mg/24 hr daily 1 patch topical DAILY 11/26/22 02/14/23 Unknown History transdermal patch apixaban 5 mg tablet (Eliquis) 5 mg PO BID 01/11/23 02/14/23 Unknown History fluticasone propionate 115 2 puff inhalation BID 01/11/23 02/14/23 Unknown History mcg-salmeterol 21 mcg/actuation HFA inhaler glipizide 10 mg tablet 10 mg PO DAILY 01/11/23 02/14/23 Unknown History insulin glargine 100 unit/mL (3 20 unit subcut BID 01/11/23 02/14/23 Unknown History mL) subcutaneous pen (Lantus Solostar U-100 Insulin) Physical Exam 2 Vital Signs: Vital Signs: Last Vital Signs Temp 98.2 F 02/24/23 12:00 Pulse 97 02/24/23 12:00 Resp 20 02/24/23 12:00 BP 156/94 H 02/24/23 12:00 Pulse Ox 94 02/24/23 12:00 O2 Del Method Room Air 02/24/23 12:00 O2 Flow Rate 1 02/21/23 04:00 FiO2 25 02/16/23 10:00 BMI result Body Mass Index 30.2 Gen appear: ill appearing HEENT: mildly icteric Chest: no overt resp distress Abd: soft, no wincing to palpation Ext: R leg discoloration Neuro: awake, does track movements, no response to verbal or physical stimuli. No asterixis Results Labs 02/25/23 07:35 02/25/23 05:59 Labs: Short CBC 02/24/23 Range/Units 06:39 WBC 9.2 (4.8-10.8) X10*3/uL Hgb 8.7 L (12.0-16.0) g/dl Hct 30.5 L (37.0-47.0) % Plt Count 150 L (160-400) X10*3/uL BMP 02/24/23 06:39 Sodium 147 H Potassium 3.9 Chloride 109 H Carbon Dioxide 23 BUN 31 H Creatinine 0.87 Calcium 8.7 Liver Function 02/24/23 Range/Units 06:39 Total Bilirubin 3.9 H (0.0-1.0) mg/dL Direct Bilirubin 1.6 H (0.0-0.5) mg/dL AST 29 (5-31) U/L ALT 24 (0-31) U/L Alkaline Phosphatase 63 (39-117) U/L Albumin 3.3 L (3.5-5.0) g/dL Microbiology Microbiology Results: Microbiology 02/13/23 19:56 Blood - Venous Blood Culture - Final No growth after 5 days. 02/13/23 20:06 Blood - Venous Blood Culture - Final No growth after 5 days. 02/13/23 Unknown Urine clean catch - Urine jimenez top Urine Culture - Final No growth. Assessment and Plan (1) Cardiac arrest: Status: Acute (2) Ischemic cardiomyopathy: Status: Acute (3) Aortic valve vegetation: Status: Acute (4) Non-pressure ulcer of stump of below knee amputation of left lower extremity: Status: Acute (5) Hyperbilirubinemia: Status: Acute Plan Differentials include worsening hepatic function due to critical illness (pt appears to have baseline chronic liver disease based on imaging), congestive hepatopathy, cholestasis from sepsis, drug induced liver injury. pt primarily just has hyperbili (indirect) without elevation of transaminases or ALP, differentials would also include [place] and hemolysis. Plan: - Check hemolysis labs - US Abd to r/o obstruction - Daily LFTs and INR - If hemolysis ruled out, pt likely has [place] if transminases and ALP remain normal and bili does not go >5 - Mental status quiet worrisome and both the RN and hospitalist team were made aware Thank you for allowing me to participate in her care. Please not hesitate to reach out for any questions or concerns. Time Spent With Patient Time: Total time managing care of this patient today ____ minutes. Procedures Date of Service Date of Service: 02/25/23
[2023-02-24 14:38] LABS: Influenza A PCR NEGATIVE (Negative); Influenza B PCR NEGATIVE (Negative); Resp Syncy Virus RNA Qual PCR NEGATIVE (Negative); SARS COV2 PCR INHOUSE NEGATIVE (Negative)
--- NOTE | 2023-02-24 15:57 | MHC.SL.SWA ---
Speech Pathologist Impression: Risk of aspiration, oral pharyngeal dysphagia Dysphasia Diet Status: Recommend patient continue w/ PUREED (NDD1) solids, DOWNGRADE to HONEY THICK liquids, MEDS CRUSHED in PUREE. Pt requires total 1:1 assist feeding and strict aspiration precautions. Provide oral care before first meal and after each subsequent meal. Patient must be awake, alert, and engaged w/ feeding for any PO. Otherwise tray to be held. COMFORT ADVISOR to continue to follow Liquid Consistency and Strategies for Safe Swallow: Liquid Intake Recommendation: Honey Thick Liquid Intake Strategies: No Straws Liquids by Teaspoon Only Solid Food Consistency: Dietary Recommendations: Pureed (NDD1) Oral Medication Intake: Crushed with Puree Please contact the pharmacy regarding appropriate crushable or liquid drug formulations that are available whenever modified delivery is recommended. Compensatory Strategies and Precautions to be Taken for Safe Swallow: Sitting Upright (90 deg) No Straw Liquids from Spoon Small Bites and Sips Rate of Ingestion Change Supervision While Eating and Drinking for Safe Swallow: Total Assistance (1:1) Swallowing Recommended Treatments: Compens. Strategy Educat. Recommendation for Speech: Inpatient Speech Therapy Laboratory Technologist Clinican/Clinical Fellow: No Supervisory Statement: I have reviewed and agree with the student/clinical fellow's documentation: N/A Speech Language Pathologist: Candida Khan M.A., [facility]-COMFORT ADVISOR
[2023-02-24 16:00] VITALS: BP 168/88; PULSE 97; RESP 12; TEMP 37; O2SAT 94
[2023-02-24 16:15] LABS: Vancomycin Random 18.2 mcg/mL (15-20)
[2023-02-24 16:39] LABS: Glucose, Whole Blood 207 mg/dL (60-115)
--- NOTE | 2023-02-24 16:59 | PC.NURSE ---
Addendum entered by Ginny Berg RN 02/24/23 17:04: DR Schrader was notified , per MD and previous RN Katarina statement , this pt has been in the same mental stage for the last few days and work up is ongoing Original Note: Patient lethargic, minimal response to sternal rub ,opens her eyes, some moaning . Her whole body flaccid, no movement , shallow breathing with some apnea. VVS
--- NOTE | 2023-02-24 17:05 | HE.PHANOTE ---
VANCO DOSE ADJUSTMENT BASED ON SCR AND TROUGH OF 18.2 DOSE DECREASED TO 500 Q 12H. NEXT TROUGH AT 02/25 @ 1500
[2023-02-24] MEDS: vancomycin HCL 500 MG in 0.9 % Sodium Chloride 100 ML 110 MG IV (17:22)
[2023-02-24 20:00] VITALS: BP 139/78; PULSE 96; RESP 12; TEMP 37.1; O2SAT 100
[2023-02-24 21:08] LABS: Glucose, Whole Blood 202 mg/dL (60-115)
[2023-02-25] VITALS: BP 132/61; PULSE 89; RESP 18; TEMP 37.1; O2SAT 97
[2023-02-25] MEDS: cefEPime HCl 1 GM in 0.9 % Sodium Chloride 50 ML IV (00:27)
[2023-02-25] MEDS: Heparin Sodium,Porcine Flush 50 UNITS/5 ML SYRINGE IVFLUSH ×3 (00:28→17:51)
[2023-02-25 04:00] VITALS: BP 154/88; PULSE 88; RESP 14; TEMP 36.1; O2SAT 100
[2023-02-25] MEDS: vancomycin HCL 500 MG in 0.9 % Sodium Chloride 100 ML 110 MG IV (05:24)
[2023-02-25 06:44] LABS: Prothrombin Time 24.2 SEC (11.1-13.3)
[2023-02-25 06:53] LABS: Alanine Aminotransferase 44 U/L (0-31); Albumin Level 2.8 g/dL (3.5-5.0); Alkaline Phosphatase 57 U/L (39-117); Anion Gap 10 (12-20); Aspartate Amino Transferase 23 U/L (5-31); Bilirubin Direct 1.4 mg/dL (0.0-0.5); Bilirubin Total 2.9 mg/dL (0.0-1.0); Blood Urea Nitrogen 33 mg/dL (9-16); Calcium 8.5 mg/dL (8.4-10.2); Carbon Dioxide 25 mmol/L (22-29); Chloride 113 mmol/L (96-108); Creatinine Clr Calc Pharmacy 75.3; Estimated Glomerular Filt Rate > 60; Glucose Fasting 198 mg/dL (60-99); Magnesium 2.1 mg/dL (1.6-2.6); Potassium 3.6 mmol/L (3.3-5.1); Sodium 144 mmol/L (135-145)
[2023-02-25 07:40] VITALS: BP 164/88; PULSE 91; RESP 13; TEMP 36.3; O2SAT 100
[2023-02-25 07:50] LABS: Glucose, Whole Blood 195 mg/dL (60-115)
[2023-02-25 08:17] LABS: Hematocrit 35.4 % (37.0-47.0); Hemoglobin 10.2 g/dl (12.0-16.0); Mean Corpuscular HGB Conc 28.8 g/dl (31.0-35.0); Mean Corpuscular Hemoglobin 20.4 pg (27.0-33.0); Mean Corpuscular Volume 70.9 fL (80.0-98.0); NRBC Pct Auto 0.4 /100WBC (0.0-0.2); Platelet Count 165 X10*3/uL (160-400); Red Blood Count 4.99 X10*6/uL (4.20-5.50); Red Cell Distribution Width 25.4 % (11.0-16.0); White Blood Count 12.8 X10*3/uL (4.8-10.8)
[2023-02-25 08:18] LABS: PLT ABN DIST 1
[2023-02-25] MEDS: Insulin Lispro 100 UNIT/ML 3 ML VIAL SUBCUT ×4 (08:30→21:53)
[2023-02-25 11:21] VITALS: BP 164/97; PULSE 91; RESP 13; TEMP 36.4; O2SAT 100
[2023-02-25 11:23] LABS: Glucose, Whole Blood 189 mg/dL (60-115)
--- NOTE | 2023-02-25 11:58 | HO.PM.IMPN ---
Subjective Subjective Date of Service: 02/25/23 Interval History: Seen and evaluated this morning less alert, confused, not her normal self but vitals stable resolved Hypernatremia Denies any fever or chills Review of Systems Review of Systems: Yes all other systems are reviewed and are negative Physical Exam Vital Signs: Vital Signs: Last Vital Signs Temp 97.5 F 02/25/23 11:21 Pulse 91 02/25/23 11:21 Resp 13 02/25/23 11:21 BP 164/97 H 02/25/23 11:21 Pulse Ox 100 02/25/23 11:21 O2 Del Method Nasal Cannula 02/25/23 11:21 O2 Flow Rate 2 02/25/23 11:21 FiO2 25 02/16/23 10:00 BMI result Body Mass Index 30.2 Const: Other: Constitutional : Awake, interactive, not in distress Neck : Normal inspection, Supple Cardiovascular : RRR, no JVP, no lower extremity edema Respiratory : good bilateral air entry, no crackles, wheezes or rhonchi Gastrointestinal: soft, lax, Normal bowel sounds, Non tender Skin : Warm, Dry Skeletal: Lt BKA with wound covered w dressing Neurological : Alert & confused x3, No focal deficit Objective Data Active Medications Acetaminophen (Acetaminophen 325 Mg Tablet) 975 mg PO TID [facility] Last Admin: 02/25/23 08:30 Dose: Not Given Documented By: MARY Non-Admin Reason: Patient Refused Apixaban (Apixaban 5 Mg Tablet) 5 mg PO BID [facility] Last Admin: 02/25/23 08:38 Dose: Not Given Documented By: MARY Non-Admin Reason: Patient Refused Atorvastatin Calcium (Atorvastatin Calcium 80 Mg Tablet) 80 mg PO BEDTIME [facility] Last Admin: 02/24/23 20:35 Dose: Not Given Documented By: IGNACIO Non-Admin Reason: NPO Baclofen (Baclofen 10 Mg Tablet) 10 mg PO BID [facility] Last Admin: 02/25/23 08:38 Dose: Not Given Documented By: MARY Non-Admin Reason: Patient Refused Carvedilol (Carvedilol 3.125 Mg Tablet) 3.125 mg PO BID [facility]; Protocol Last Admin: 02/25/23 08:38 Dose: Not Given Documented By: MARY Non-Admin Reason: Patient Refused Clopidogrel Bisulfate (Clopidogrel Bisulfate 75 Mg Tablet) 75 mg PO DAILY [facility] Last Admin: 02/25/23 08:38 Dose: Not Given Documented By: MARY Non-Admin Reason: Patient Refused Dextrose (Dextrose 50 % 25 Gm/50 Ml Syringe) 25 gm IVPUSH Q15M PRN; Protocol PRN Reason: per Hypoglycemia Standing Ord. Fluticasone/Vilanterol (Fluticasone/Vilanterol 100/25 Blst.W.Dev) 1 puff INHALE RDAILY [facility] Last Admin: 02/25/23 08:14 Dose: Not Given Documented By: HARVEY Non-Admin Reason: See Note Furosemide (Furosemide 40 Mg Tablet) 40 mg PO DAILY [facility]; Protocol Last Admin: 02/19/23 08:29 Dose: 40 mg Documented By: ALEXIAORRDouglas Glucose (Glucose Gel 15 Gm Gel..Gram.) 15 gm PO Q15M PRN; Protocol PRN Reason: per Hypoglycemia Standing Ord. Heparin Sodium (Porcine) (Heparin Sodium,Porcine Flush 50 Units/5 Ml Syringe) 50 units IVFLUSH QSHIFT [facility] Last Admin: 02/25/23 08:30 Dose: 50 units Documented By: MARY Cefepime HCl 1 gm/ Sodium (Chloride) 50 mls @ 100 mls/hr IV Q12H [facility] Last Infusion: 02/25/23 01:13 Dose: Infused Documented By: JOSE GUADALUPE Dextrose/Sodium Chloride (D51/2ns) 1,000 mls @ 80 mls/hr IVCONT .[id number] [facility] Last Admin: 02/25/23 08:37 Dose: Not Given Documented By: MARY Non-Admin Reason: IV Running Vancomycin HCl 500 mg/ Sodium (Chloride) 110 mls @ 110 mls/hr IV Q12H [facility] Last Infusion: 02/25/23 06:30 Dose: Infused Documented By: JOSE GUADALUPE Insulin Human Lispro (Insulin Lispro 100 Unit/Ml 3 Ml Vial) 0 unit SUBCUT QIDACHS [facility]; Protocol Last Admin: 02/25/23 08:30 Dose: 2 unit Documented By: MARY Lactulose (Lactulose 20 Gm/30 Ml Solution) 20 gm PO BID [facility] Last Admin: 02/25/23 08:37 Dose: Not Given Documented By: MARY Non-Admin Reason: Patient Refused Losartan Potassium (Losartan Potassium 25 Mg Tablet) 25 mg PO DAILY [facility]; Protocol Last Admin: 02/25/23 08:37 Dose: Not Given Documented By: MARY Non-Admin Reason: Patient Refused Ondansetron HCl (Ondansetron Hcl 4 Mg/2 Ml Vial) 4 mg IVPUSH Q8H PRN PRN Reason: Nausea and Vomiting Last Admin: 02/22/23 20:08 Dose: 4 mg Documented By: CHARLIE Prednisone (Prednisone 20 Mg Tablet) 20 mg PO DAILY [facility] Last Admin: 02/25/23 08:37 Dose: Not Given Documented By: MARY Non-Admin Reason: Patient Refused Tiotropium [place] (Tiotropium [place] 2.5 Mcg Inhaler) 2 puff INHALE RDAILY [facility] Last Admin: 02/25/23 08:14 Dose: Not Given Documented By: HARVEY Non-Admin Reason: See Note Labs 02/25/23 07:35 02/25/23 05:59 Labs: Laboratory Results - last 24 hr 02/24/23 02/24/23 02/24/23 06:39 12:22 13:00 MCV MCH MCHC RDW Plt Count MPV Absolute Nucleated RBC Nucleated RBC % (auto) PT INR Anion Gap Estim Creat Clear Calc Estimated GFR POC Glucose 187 H Fasting Glucose Calcium Magnesium Total Bilirubin 3.9 H Direct Bilirubin 1.6 H AST 29 ALT 24 Alkaline Phosphatase 63 Total Protein 5.4 L Albumin 3.3 L Random Vancomycin Influenza Type A (PCR) NEGATIVE Influenza Type B (PCR) NEGATIVE RSV RNA Qual (PCR) NEGATIVE SARS-CoV-2 RNA (RT-PCR) NEGATIVE 02/24/23 02/24/23 02/24/23 15:04 16:29 20:54 MCV MCH MCHC RDW Plt Count MPV Absolute Nucleated RBC Nucleated RBC % (auto) PT INR Anion Gap Estim Creat Clear Calc Estimated GFR POC Glucose 207 H 202 H Fasting Glucose Calcium Magnesium Total Bilirubin Direct Bilirubin AST ALT Alkaline Phosphatase Total Protein Albumin Random Vancomycin 18.2 Influenza Type A (PCR) Influenza Type B (PCR) RSV RNA Qual (PCR) SARS-CoV-2 RNA (RT-PCR) 02/25/23 02/25/23 02/25/23 05:59 07:35 07:37 MCV 70.9 L MCH 20.4 L MCHC 28.8 L RDW 25.4 H Plt Count 165 MPV Not Reportable Absolute Nucleated RBC 0.050 H Nucleated RBC % (auto) 0.4 H PT 24.2 H D INR 2.0 H Anion Gap 10 L Estim Creat Clear Calc 75.3 Estimated GFR > 60 POC Glucose 195 H Fasting Glucose 198 H Calcium 8.5 Magnesium 2.1 Total Bilirubin 2.9 H Direct Bilirubin 1.4 H AST 23 ALT 44 H Alkaline Phosphatase 57 Total Protein 5.0 L Albumin 2.8 L Random Vancomycin Influenza Type A (PCR) Influenza Type B (PCR) RSV RNA Qual (PCR) SARS-CoV-2 RNA (RT-PCR) 02/25/23 11:18 MCV MCH MCHC RDW Plt Count MPV Absolute Nucleated RBC Nucleated RBC % (auto) PT INR Anion Gap Estim Creat Clear Calc Estimated GFR POC Glucose 189 H Fasting Glucose Calcium Magnesium Total Bilirubin Direct Bilirubin AST ALT Alkaline Phosphatase Total Protein Albumin Random Vancomycin Influenza Type A (PCR) Influenza Type B (PCR) RSV RNA Qual (PCR) SARS-CoV-2 RNA (RT-PCR) Assessment and Plan (1) Infective endocarditis: Status: Acute (2) Acute hypernatremia: Status: Acute (3) Toxic metabolic encephalopathy: Status: Acute Plan 52F PMH DM, c/b chronic foot wound s/p L BKA, CAD, s/p LAD stent, chronic systolic CHF, COPD, asthma, p/t ED on 02/14 w/ diffuse pain, suffered PEA arrest, w/ ROSC w/in 15 minutes, arrest thought to be d/t hypoxia, of unclear etiology, intubated, admitted ICU and extubated. Culture negative infective endocarditis Left [facility] many times AMA, has ROB showing aortic valve possible vegetations with negative blood cultures follow-up repeat blood cultures, no growth to date echocardiogram here demonstrating LVEF 10%, unchanged from before, not suggestion of vegetations ID appreciated - treat with 6 weeks of IV abx of Vanco and Cefepime (Dapto\CTX as alternative) (end mar) PEA Arrest s\p ROSC post CPR on admission unclear etiology, thought to be d/t hypoxia Blood cultures from admission still negative acute toxic metabolic encephalopathy negative ct head could be 2/2 medications, hospital stay change Cefepime to CXT DC Baclofen as well avoid meds that might affect her mentation left lung opacity likely pneumonia per Pulm, no need for intervention at this point conitnue broad spectrum antibiotics, id follow up psych appreciated patient appeared to have sufficient insight to make medical decisions (prior to current encephalopathy) Cardiac pause Had an episode of pause of 5 seconds with vomiting could be vasovagal restart coreg IRAIS 2/2 PEA arrest; resolved I\O monitor BMP thrombocytopenia Improved Acute hypernatremia resolved Abt-[id number]-auldqccmm diabetes mellitus sliding scale insulin reduce home Lantus Congestive heart failure with reduced ejection fraction. Continue Coreg, losartan furosemide Coronary artery disease status post stent to proximal LAD Continue beta-connor, statin and Plavix COPD. No exacerbation during admission. Continue home inhalers Tobacco use disorder Counseled regarding cessation.?Refused nicotine patch Microcytic anemia Stable Paroxysmal atrial fibrillation On Eliquis DVT prophylaxis Eliquis reason for continued hospitalization:ams , endocarditis pending SNF Time Spent With Patient Time: Total time managing care of this patient today ____ minutes. Quality Stroke Does the patient have a stroke diagnosis?: No VTE Prior VTE?: No VTE Risk Level:: Medical - moderate - high VTE Device Contraindication: N/A - Device Ordered VTE Drug Contraindication: N/A - Med Ordered
[2023-02-25] MEDS: cefTRIAXone sodium 2 GM in 0.9 % Sodium Chloride 50 ML IV (12:20)
[2023-02-25] MEDS: Dextrose 5 % and 0.45 % NaCl 1,000 ML 80 ML IVCONT ×2 (14:19→21:54)
[2023-02-25 16:00] VITALS: BP 137/97; PULSE 89; RESP 17; TEMP 36.6; O2SAT 100
[2023-02-25 16:48] LABS: Glucose, Whole Blood 169 mg/dL (60-115)
[2023-02-25 17:46] LABS: Vancomycin Random 16.4 mcg/mL (15-20)
--- NOTE | 2023-02-25 18:11 | HE.PHANOTE ---
VANCO DOSE ADJUSTMENT BASED ON SCR AND TROUGH DOSE CONTINUED. NEXT TROUGH 02/26 @ 1500
[2023-02-25 19:43] VITALS: BP 158/91; PULSE 88; RESP 18; TEMP 36.2; O2SAT 97
[2023-02-25 21:16] LABS: Glucose, Whole Blood 158 mg/dL (60-115)
--- NOTE | 2023-02-25 22:30 | PM.CNPUL ---
History of Present Illness History of Present Illness Consult date: 02/25/23 Chief complaint: Acute resp failure, cardiac arrest, CHF Narrative: This is an inpateint pulmonary consultation. This is a 52-year-old female with pertinent history of COPD not on home oxygen, congestive heart failure with reduced ejection fraction, [id number] diabetes mellitus with neuropathy, CAD status post LAD stent, peripheral vascular disease status post left BKA, essential hypertension, paroxysmal atrial fibrillation on anticoagulation who presents to the emergency department for evaluation of cough, back pain and not feeling well. Patient was admitted on 01/11 with multifocal airspace opacities concerning for septic emboli. Pulmonology evaluated the patient and advised to obtain an echo and continue IV antibiotics. Patient left AMA on 01/12. Patient returned to the ER on 01/22 with similar complaints but did not want to be admitted to the hospital. She was prescribed cefuroxime and doxycycline which she states that she had apparently has been taking. She is unable to provide names of the antibiotic though. Patient is unable to elaborate but states she is not feeling well and has generalized weakness with malaise. Also has been having cough with chills. She states that she is willing to stay through her hospital admission course and will not leave AMA. personally reviewed her ct chest demonstrating multilobar pneumonia and nodular densities sugesting septic emboli. Review of Systems Review of Systems: Yes all other systems are reviewed and are negative Constitutional: Constitutional: Reports as per HPI and Reports no additional constitutional complaints Eyes: Eyes: Reports as per HPI and Denies no additional eye complaints ENT: Denies system reviewed and no additional complaints, except as documented and Reports as per HPI Cardiovascular: Cardiovascular: Denies acrocyanosis, Denies cool extremities, Denies chest pain, Denies leg edema, Denies lightheadedness, Denies palpitations, Denies dyspnea and Reports dyspnea on exertion Respiratory: Respiratory: Reports as per HPI, Denies no additional respiratory complaints, Reports cough, Denies dyspnea and Reports dyspnea on exertion Gastrointestinal: Gastrointestinal: Reports as per HPI and Denies no additional gastrointestinal complaints Genitourinary: Genitourinary: Reports as per HPI Musculoskeletal: Musculoskeletal: Reports as per HPI and Reports radiating pain into limb Integumentary/Breasts: Skin/Breast: Reports system reviewed and no additional complaints, except as docu Neurologic: Reports system reviewed and no additional complaints, except as documented and Reports as per HPI Psychiatric: Psychiatric: Reports no additional psychiatric complaints and Reports as per HPI Endocrine: Endocrine: Reports no additional endocrine complaints, Reports as per HPI and Denies palpitations Hematologic/Lymphatic: Hematologic/Lymphatic: Reports no additional hematologic/lymphatic complaints and Reports as per HPI Allergic/Immunologic: Allergic/Immunologic: Reports no additional allergic/immunologic complaints and Reports as per HPI [facility] Past Medical History Medical History (Updated 02/25/23 @ 22:35 by Gerardo Gracia MD) Ischemic cardiomyopathy Aortic valve vegetation Back pain Septic pulmonary embolism Below-knee amputation of left lower extremity Coronary artery disease Hyperglycemia due to diabetes mellitus Cellulitis in diabetic foot PAD (peripheral artery disease) 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 Diabetic foot infection Osteomyelitis Atrial tachycardia GERD (gastroesophageal reflux disease) Atherosclerotic cardiovascular disease Essential hypertension COPD (chronic obstructive pulmonary disease) Asthma Diabetes Hypertension Family History Family History Mother Hx of CABG Sister CAD (coronary artery disease) Family history: reviewed and not pertinent Surgical History Surgical History Status post below-knee amputation of left lower extremity (09/20/22) History of toe surgery (09/22/21) History of esophagogastroduodenoscopy (EGD) Social History Social History Household Members: Spouse Household Members Other:: 2 Housing: Apartment Do you presently have visiting nurse or other home services: Yes (twice a day) Unable to assess alcohol history related to: Refusing to respond Alcohol intake: former Patient Tobacco Use Status: Never used Tobacco Tobacco use type: Cigarette Cigarette Packs Per Day: 0.5 Cigarettes Per Day: 10.0 Years Smoked: since 8 years old Smoked in Last 30 Days: Yes e-Cigarette/Vaping Use: Never Used Second Hand Smoke Exposure: Yes Use of substances other than those prescribed or required for medical reasons: Unable to respond Substance Use Type: Painkillers Currently Displaying Signs/Symptoms of Drug Intoxication Withdrawal: No Advance Directives: Yes Advance Directives on File: Yes Advance Directives Date on File: 09/22/22 Nutrition Risks: On aspiration precautions Patient : No : No Poor oral hygiene: Yes service: No Current occupational status: disabled Meds Allergies Allergy/AdvReac Type Severity Reaction Status Date / Time Penicillins [PENICILLINS] Allergy Severe RASH Verified 02/13/23 18:33 amoxicillin [AMOXICILLIN] Allergy Intermediate HIVES Verified 02/13/23 18:33 perflutren [From Definity] AdvReac Back Pain Verified 02/13/23 18:33 Active Medications: Current Medications Acetaminophen (Acetaminophen 325 Mg Tablet) 975 mg PO TID [facility] Last Admin: 02/25/23 20:25 Dose: Not Given Apixaban (Apixaban 5 Mg Tablet) 5 mg PO BID [facility] Last Admin: 02/25/23 20:26 Dose: Not Given Atorvastatin Calcium (Atorvastatin Calcium 80 Mg Tablet) 80 mg PO BEDTIME [facility] Last Admin: 02/25/23 20:25 Dose: Not Given Carvedilol (Carvedilol 3.125 Mg Tablet) 3.125 mg PO BID [facility]; Protocol Last Admin: 02/25/23 20:26 Dose: Not Given Clopidogrel Bisulfate (Clopidogrel Bisulfate 75 Mg Tablet) 75 mg PO DAILY [facility] Last Admin: 02/25/23 08:38 Dose: Not Given Dextrose (Dextrose 50 % 25 Gm/50 Ml Syringe) 25 gm IVPUSH Q15M PRN; Protocol PRN Reason: per Hypoglycemia Standing Ord. Fluticasone/Vilanterol (Fluticasone/Vilanterol 100/25 Blst.W.Dev) 1 puff INHALE RDAILY [facility] Last Admin: 02/25/23 08:14 Dose: Not Given Furosemide (Furosemide 40 Mg Tablet) 40 mg PO DAILY [facility]; Protocol Last Admin: 02/19/23 08:29 Dose: 40 mg Glucose (Glucose Gel 15 Gm Gel..Gram.) 15 gm PO Q15M PRN; Protocol PRN Reason: per Hypoglycemia Standing Ord. Heparin Sodium (Porcine) (Heparin Sodium,Porcine Flush 50 Units/5 Ml Syringe) 50 units IVFLUSH QSHIFT [facility] Last Admin: 02/25/23 17:51 Dose: 50 units Dextrose/Sodium Chloride (D51/2ns) 1,000 mls @ 80 mls/hr IVCONT .[id number] [facility] Last Admin: 02/25/23 21:54 Dose: 80 mls/hr Vancomycin HCl 500 mg/ Sodium (Chloride) 110 mls @ 110 mls/hr IV Q12H [facility] Last Admin: 02/25/23 17:52 Dose: Not Given Ceftriaxone Sodium 2 gm/ (Sodium Chloride) 50 mls @ 100 mls/hr IV Q24H [facility] Last Infusion: 02/25/23 12:50 Dose: Infused Insulin Human Lispro (Insulin Lispro 100 Unit/Ml 3 Ml Vial) 0 unit SUBCUT QIDACHS [facility]; Protocol Last Admin: 02/25/23 21:53 Dose: 2 unit Lactulose (Lactulose 20 Gm/30 Ml Solution) 20 gm PO BID [facility] Last Admin: 02/25/23 20:26 Dose: Not Given Losartan Potassium (Losartan Potassium 25 Mg Tablet) 25 mg PO DAILY [facility]; Protocol Last Admin: 02/25/23 08:37 Dose: Not Given Ondansetron HCl (Ondansetron Hcl 4 Mg/2 Ml Vial) 4 mg IVPUSH Q8H PRN PRN Reason: Nausea and Vomiting Last Admin: 02/22/23 20:08 Dose: 4 mg Prednisone (Prednisone 20 Mg Tablet) 20 mg PO DAILY [facility] Last Admin: 02/25/23 08:37 Dose: Not Given Tiotropium [place] (Tiotropium [place] 2.5 Mcg Inhaler) 2 puff INHALE RDAILY [facility] Last Admin: 02/25/23 08:14 Dose: Not Given Home Medications Medication Instructions Recorded Confirmed Last Taken Type clopidogrel 75 mg tablet 75 mg PO DAILY 11/24/22 02/14/23 Unknown History nicotine 21 mg/24 hr daily 1 patch topical DAILY 11/26/22 02/14/23 Unknown History transdermal patch apixaban 5 mg tablet (Eliquis) 5 mg PO BID 01/11/23 02/14/23 Unknown History fluticasone propionate 115 2 puff inhalation BID 01/11/23 02/14/23 Unknown History mcg-salmeterol 21 mcg/actuation HFA inhaler glipizide 10 mg tablet 10 mg PO DAILY 01/11/23 02/14/23 Unknown History insulin glargine 100 unit/mL (3 20 unit subcut BID 01/11/23 02/14/23 Unknown History mL) subcutaneous pen (Lantus Solostar U-100 Insulin) Physical Exam Vital Signs: Vital Signs: Last Vital Signs Temp 97.2 F 02/25/23 19:43 Pulse 88 02/25/23 19:43 Resp 18 02/25/23 19:43 BP 158/91 H 02/25/23 19:43 Pulse Ox 97 02/25/23 19:43 O2 Del Method Room Air 02/25/23 19:43 O2 Flow Rate 2 02/25/23 16:00 FiO2 25 02/16/23 10:00 BMI result Body Mass Index 30.2 Const: Other: Constitutional : Awake, interactive, not in distress Neck : Normal inspection, Supple Cardiovascular : RRR, no JVP, no lower extremity edema Respiratory : good bilateral air entry, no crackles, wheezes or rhonchi Gastrointestinal: soft, lax, Normal bowel sounds, Non tender Skin : Warm, Dry Skeletal: Lt BKA with wound covered w dressing Neurological : Alert & confused x3, No focal deficit General: no acute distress, ill appearing and tired appearing Orientation/consciousness: patient oriented x3 HEENT: Other: Unremarkable Head: Yes normal to inspection Neck: Neck: Yes normal visual inspection Chest: Other: Few basal crackles. Resp: Effort & Inspection: normal respiratory effort Auscultation: diminished lung sounds Cardio: Heart sounds: S1 normal heart sound present and S2 normal heart sound present GI: Palpation (GI): Soft to palpation Back/Spine/Pelvis: Other: unremarkable Skin: General skin exam: no rashes or lesions noted Neuro: General: patient oriented x3 Extrem: Other: Left below-knee amputation. General: Yes normal to inspection Psych: Mental Status: mental status grossly normal Results Laboratory Findings 02/25/23 07:35 02/25/23 05:59 ABG, PT/INR, D-dimer: PT/INR, D-dimer PT 24.2 SEC (11.1-13.3) H D 02/25/23 05:59 INR 2.0 (0.9-1.1) H 02/25/23 05:59 Abnormal lab findings: Abnormal Labs 02/13/23 02/13/23 02/13/23 19:56 21:56 23:07 WBC RBC Hgb 9.8 L Hct 35.1 L MCV 68.4 L MCH 19.1 L MCHC 27.9 L RDW 22.7 H Plt Count 86 L D Immature Gran % (Auto) 0.5 H Neut % (Auto) 77.9 H Lymph % (Auto) 11.7 L Lymph # (Auto) 0.7 L Abs Immat Gran (auto) Absolute Neuts (auto) Absolute Nucleated RBC 0.030 H Nucleated RBC % (auto) 0.5 H PT 16.3 H D INR 1.3 H ABG pH at Pt Temp 7.20 L* ABG pO2 at Pt Temp 130 H ABG HCO3 18 L VBG pH VBG HCO3 Sodium Potassium Chloride Carbon Dioxide Anion Gap BUN 28 H Creatinine 1.99 H POC Glucose 301 H Random Glucose 349 H Fasting Glucose Lactic Acid 2.8 H* Lactic Acid F/U @ 2Hr Calcium Iron TIBC Total Bilirubin 1.5 H Direct Bilirubin ALT Troponin I High Sens 18.2 H B-Natriuretic Peptide 3603 H Total Protein Albumin Urine Protein Urine Glucose (UA) Urine Blood Ur Leukocyte Esterase Urine RBC Urine WBC Random Vancomycin Crossmatch 02/13/23 02/13/23 02/14/23 23:24 23:25 01:46 WBC 16.0 H RBC Hgb 10.4 L Hct MCV 70.1 L MCH 19.2 L MCHC 27.4 L RDW 23.0 H Plt Count 135 L D Immature Gran % (Auto) 1.2 H Neut % (Auto) 83.4 H Lymph % (Auto) 9.0 L Lymph # (Auto) Abs Immat Gran (auto) 0.19 H Absolute Neuts (auto) 13.4 H Absolute Nucleated RBC 0.140 H Nucleated RBC % (auto) 0.9 H PT INR ABG pH at Pt Temp ABG pO2 at Pt Temp ABG HCO3 VBG pH VBG HCO3 Sodium Potassium Chloride Carbon Dioxide 19 L Anion Gap BUN 29 H Creatinine 2.13 H POC Glucose 356 H* Random Glucose 472 H* Fasting Glucose Lactic Acid Lactic Acid F/U @ 2Hr 6.5 H* Calcium Iron 167 H TIBC 504 H Total Bilirubin 1.2 H Direct Bilirubin ALT Troponin I High Sens 23.6 H B-Natriuretic Peptide Total Protein 6.3 L Albumin 3.3 L Urine Protein 100 (2+) H Urine Glucose (UA) 250 H Urine Blood Small (1+) H Ur Leukocyte Esterase Trace H Urine RBC 11-20 H Urine WBC 11-20 H Random Vancomycin Crossmatch 02/14/23 02/14/23 02/14/23 05:03 05:07 05:52 WBC RBC 3.83 L D Hgb 7.4 L D Hct 26.0 L D MCV 67.9 L MCH 19.3 L MCHC 28.5 L RDW 21.8 H Plt Count 72 L D Immature Gran % (Auto) 0.8 H Neut % (Auto) 90.9 H Lymph % (Auto) 3.2 L Lymph # (Auto) 0.2 L Abs Immat Gran (auto) 0.06 H Absolute Neuts (auto) Absolute Nucleated RBC 0.040 H Nucleated RBC % (auto) 0.5 H PT INR ABG pH at Pt Temp ABG pO2 at Pt Temp ABG HCO3 VBG pH 7.46 H VBG HCO3 32 H Sodium Potassium Chloride Carbon Dioxide Anion Gap BUN 30 H Creatinine 2.09 H POC Glucose 333 H Random Glucose 361 H* Fasting Glucose Lactic Acid Lactic Acid F/U @ 2Hr Calcium Iron TIBC Total Bilirubin 1.1 H Direct Bilirubin ALT Troponin I High Sens 102.4 H* D B-Natriuretic Peptide Total Protein 5.1 L Albumin 3.0 L Urine Protein Urine Glucose (UA) Urine Blood Ur Leukocyte Esterase Urine RBC Urine WBC Random Vancomycin Crossmatch 02/14/23 02/14/23 02/14/23 11:59 14:29 17:51 WBC RBC Hgb Hct MCV MCH MCHC RDW Plt Count Immature Gran % (Auto) Neut % (Auto) Lymph % (Auto) Lymph # (Auto) Abs Immat Gran (auto) Absolute Neuts (auto) Absolute Nucleated RBC Nucleated RBC % (auto) PT INR ABG pH at Pt Temp ABG pO2 at Pt Temp ABG HCO3 VBG pH VBG HCO3 Sodium Potassium Chloride Carbon Dioxide Anion Gap BUN Creatinine POC Glucose 258 H 226 H Random Glucose Fasting Glucose Lactic Acid Lactic Acid F/U @ 2Hr Calcium Iron TIBC Total Bilirubin Direct Bilirubin ALT Troponin I High Sens 611.9 H* D B-Natriuretic Peptide Total Protein Albumin Urine Protein Urine Glucose (UA) Urine Blood Ur Leukocyte Esterase Urine RBC Urine WBC Random Vancomycin Crossmatch 02/14/23 02/14/23 02/15/23 18:45 23:48 05:20 WBC 4.5 L RBC 3.68 L Hgb 7.0 L* Hct 24.3 L MCV 66.0 L MCH 19.0 L MCHC 28.8 L RDW 22.5 H Plt Count 68 L Immature Gran % (Auto) 0.7 H Neut % (Auto) 89.1 H Lymph % (Auto) 6.4 L Lymph # (Auto) 0.3 L Abs Immat Gran (auto) Absolute Neuts (auto) Absolute Nucleated RBC 0.030 H Nucleated RBC % (auto) 0.7 H PT INR ABG pH at Pt Temp ABG pO2 at Pt Temp ABG HCO3 VBG pH VBG HCO3 Sodium Potassium Chloride Carbon Dioxide Anion Gap BUN 32 H 37 H Creatinine 2.02 H 2.00 H POC Glucose 234 H Random Glucose 217 H 198 H Fasting Glucose Lactic Acid Lactic Acid F/U @ 2Hr Calcium Iron TIBC Total Bilirubin 1.2 H Direct Bilirubin ALT Troponin I High Sens B-Natriuretic Peptide Total Protein 5.2 L Albumin 3.3 L Urine Protein Urine Glucose (UA) Urine Blood Ur Leukocyte Esterase Urine RBC Urine WBC Random Vancomycin Crossmatch 02/15/23 02/15/23 02/15/23 05:21 09:59 12:21 WBC RBC 3.79 L Hgb 7.3 L Hct 25.3 L MCV 66.8 L MCH 19.3 L MCHC 28.9 L RDW 22.7 H Plt Count 76 L Immature Gran % (Auto) Neut % (Auto) Lymph % (Auto) Lymph # (Auto) Abs Immat Gran (auto) Absolute Neuts (auto) Absolute Nucleated RBC 0.030 H Nucleated RBC % (auto) 0.5 H PT INR ABG pH at Pt Temp ABG pO2 at Pt Temp ABG HCO3 VBG pH 7.52 H 7.48 H VBG HCO3 30 H 31 H Sodium Potassium Chloride Carbon Dioxide Anion Gap BUN Creatinine POC Glucose Random Glucose Fasting Glucose Lactic Acid Lactic Acid F/U @ 2Hr Calcium Iron TIBC Total Bilirubin Direct Bilirubin ALT Troponin I High Sens B-Natriuretic Peptide Total Protein Albumin Urine Protein Urine Glucose (UA) Urine Blood Ur Leukocyte Esterase Urine RBC Urine WBC Random Vancomycin Crossmatch 02/15/23 02/15/23 02/15/23 12:35 13:44 18:33 WBC RBC Hgb Hct MCV MCH MCHC RDW Plt Count Immature Gran % (Auto) Neut % (Auto) Lymph % (Auto) Lymph # (Auto) Abs Immat Gran (auto) Absolute Neuts (auto) Absolute Nucleated RBC Nucleated RBC % (auto) PT INR ABG pH at Pt Temp ABG pO2 at Pt Temp ABG HCO3 VBG pH VBG HCO3 Sodium Potassium Chloride Carbon Dioxide Anion Gap BUN Creatinine POC Glucose 243 H 272 H Random Glucose Fasting Glucose Lactic Acid Lactic Acid F/U @ 2Hr Calcium Iron TIBC Total Bilirubin Direct Bilirubin ALT Troponin I High Sens B-Natriuretic Peptide Total Protein Albumin Urine Protein Urine Glucose (UA) Urine Blood Ur Leukocyte Esterase Urine RBC Urine WBC Random Vancomycin Crossmatch See Detail 02/15/23 02/15/23 02/16/23 21:18 23:55 05:00 WBC RBC Hgb 9.4 L D Hct 31.5 L D MCV 67.7 L MCH 20.2 L MCHC 29.8 L RDW 23.9 H Plt Count 75 L Immature Gran % (Auto) Neut % (Auto) 92.0 H Lymph % (Auto) 3.4 L Lymph # (Auto) 0.2 L Abs Immat Gran (auto) Absolute Neuts (auto) Absolute Nucleated RBC 0.040 H Nucleated RBC % (auto) 0.7 H PT INR ABG pH at Pt Temp ABG pO2 at Pt Temp ABG HCO3 VBG pH VBG HCO3 Sodium Potassium Chloride Carbon Dioxide Anion Gap BUN 51 H Creatinine 2.15 H POC Glucose 247 H Random Glucose 230 H Fasting Glucose Lactic Acid Lactic Acid F/U @ 2Hr Calcium Iron TIBC Total Bilirubin 1.5 H Direct Bilirubin ALT Troponin I High Sens B-Natriuretic Peptide Total Protein 5.5 L Albumin 3.4 L Urine Protein Urine Glucose (UA) Urine Blood Ur Leukocyte Esterase Urine RBC Urine WBC Random Vancomycin 23.9 H Crossmatch 02/16/23 02/16/23 02/16/23 05:12 06:15 08:59 WBC RBC Hgb Hct MCV MCH MCHC RDW Plt Count Immature Gran % (Auto) Neut % (Auto) Lymph % (Auto) Lymph # (Auto) Abs Immat Gran (auto) Absolute Neuts (auto) Absolute Nucleated RBC Nucleated RBC % (auto) PT INR ABG pH at Pt Temp ABG pO2 at Pt Temp ABG HCO3 VBG pH 7.58 H VBG HCO3 Sodium Potassium Chloride Carbon Dioxide Anion Gap BUN Creatinine POC Glucose 230 H Random Glucose Fasting Glucose Lactic Acid Lactic Acid F/U @ 2Hr Calcium Iron TIBC Total Bilirubin Direct Bilirubin ALT Troponin I High Sens B-Natriuretic Peptide Total Protein Albumin Urine Protein Urine Glucose (UA) Urine Blood Ur Leukocyte Esterase Urine RBC Urine WBC Random Vancomycin 20.4 H Crossmatch 02/16/23 02/16/23 02/17/23 12:20 18:20 00:16 WBC RBC Hgb Hct MCV MCH MCHC RDW Plt Count Immature Gran % (Auto) Neut % (Auto) Lymph % (Auto) Lymph # (Auto) Abs Immat Gran (auto) Absolute Neuts (auto) Absolute Nucleated RBC Nucleated RBC % (auto) PT INR ABG pH at Pt Temp ABG pO2 at Pt Temp ABG HCO3 VBG pH VBG HCO3 Sodium Potassium Chloride Carbon Dioxide Anion Gap BUN Creatinine POC Glucose 228 H 229 H 273 H Random Glucose Fasting Glucose Lactic Acid Lactic Acid F/U @ 2Hr Calcium Iron TIBC Total Bilirubin Direct Bilirubin ALT Troponin I High Sens B-Natriuretic Peptide Total Protein Albumin Urine Protein Urine Glucose (UA) Urine Blood Ur Leukocyte Esterase Urine RBC Urine WBC Random Vancomycin Crossmatch 02/17/23 02/17/23 02/17/23 04:45 05:58 11:56 WBC RBC Hgb 9.6 L Hct 33.3 L MCV 68.2 L MCH 19.7 L MCHC 28.8 L RDW 23.9 H Plt Count 92 L Immature Gran % (Auto) Neut % (Auto) Lymph % (Auto) Lymph # (Auto) Abs Immat Gran (auto) Absolute Neuts (auto) Absolute Nucleated RBC 0.040 H Nucleated RBC % (auto) 0.5 H PT INR ABG pH at Pt Temp ABG pO2 at Pt Temp ABG HCO3 VBG pH VBG HCO3 Sodium 146 H Potassium 3.1 L Chloride Carbon Dioxide Anion Gap BUN 58 H Creatinine 1.91 H POC Glucose 257 H 316 H Random Glucose 265 H Fasting Glucose Lactic Acid Lactic Acid F/U @ 2Hr Calcium Iron TIBC Total Bilirubin Direct Bilirubin ALT Troponin I High Sens B-Natriuretic Peptide Total Protein Albumin Urine Protein Urine Glucose (UA) Urine Blood Ur Leukocyte Esterase Urine RBC Urine WBC Random Vancomycin Crossmatch 02/17/23 02/17/23 02/17/23 15:16 16:48 22:42 WBC RBC Hgb Hct MCV MCH MCHC RDW Plt Count Immature Gran % (Auto) Neut % (Auto) Lymph % (Auto) Lymph # (Auto) Abs Immat Gran (auto) Absolute Neuts (auto) Absolute Nucleated RBC Nucleated RBC % (auto) PT INR ABG pH at Pt Temp ABG pO2 at Pt Temp ABG HCO3 VBG pH VBG HCO3 Sodium Potassium 3.0 L Chloride Carbon Dioxide 30 H Anion Gap BUN 58 H Creatinine 1.72 H POC Glucose 307 H 298 H Random Glucose 295 H Fasting Glucose Lactic Acid Lactic Acid F/U @ 2Hr Calcium Iron TIBC Total Bilirubin Direct Bilirubin ALT Troponin I High Sens B-Natriuretic Peptide Total Protein Albumin Urine Protein Urine Glucose (UA) Urine Blood Ur Leukocyte Esterase Urine RBC Urine WBC Random Vancomycin Crossmatch 02/18/23 02/18/23 02/18/23 07:12 09:10 11:00 WBC RBC Hgb Hct MCV MCH MCHC RDW Plt Count Immature Gran % (Auto) Neut % (Auto) Lymph % (Auto) Lymph # (Auto) Abs Immat Gran (auto) Absolute Neuts (auto) Absolute Nucleated RBC Nucleated RBC % (auto) PT INR ABG pH at Pt Temp ABG pO2 at Pt Temp ABG HCO3 VBG pH VBG HCO3 Sodium 146 H Potassium 3.2 L Chloride Carbon Dioxide 31 H Anion Gap BUN 60 H Creatinine 1.46 H POC Glucose 293 H 276 H Random Glucose 286 H Fasting Glucose Lactic Acid Lactic Acid F/U @ 2Hr Calcium Iron TIBC Total Bilirubin Direct Bilirubin ALT Troponin I High Sens B-Natriuretic Peptide Total Protein Albumin Urine Protein Urine Glucose (UA) Urine Blood Ur Leukocyte Esterase Urine RBC Urine WBC Random Vancomycin 13.8 L Crossmatch 02/18/23 02/18/23 02/19/23 15:57 20:11 07:13 WBC RBC Hgb Hct MCV MCH MCHC RDW Plt Count Immature Gran % (Auto) Neut % (Auto) Lymph % (Auto) Lymph # (Auto) Abs Immat Gran (auto) Absolute Neuts (auto) Absolute Nucleated RBC Nucleated RBC % (auto) PT INR ABG pH at Pt Temp ABG pO2 at Pt Temp ABG HCO3 VBG pH VBG HCO3 Sodium Potassium Chloride Carbon Dioxide Anion Gap BUN Creatinine POC Glucose 245 H 262 H 166 H Random Glucose Fasting Glucose Lactic Acid Lactic Acid F/U @ 2Hr Calcium Iron TIBC Total Bilirubin Direct Bilirubin ALT Troponin I High Sens B-Natriuretic Peptide Total Protein Albumin Urine Protein Urine Glucose (UA) Urine Blood Ur Leukocyte Esterase Urine RBC Urine WBC Random Vancomycin Crossmatch 02/19/23 02/19/23 02/19/23 09:23 11:53 16:08 WBC RBC Hgb 10.5 L Hct MCV 70.4 L MCH 19.8 L MCHC 28.2 L RDW 23.7 H Plt Count 99 L Immature Gran % (Auto) Neut % (Auto) Lymph % (Auto) Lymph # (Auto) Abs Immat Gran (auto) Absolute Neuts (auto) Absolute Nucleated RBC 0.020 H Nucleated RBC % (auto) 0.3 H PT INR ABG pH at Pt Temp ABG pO2 at Pt Temp ABG HCO3 VBG pH VBG HCO3 Sodium 147 H Potassium 3.2 L Chloride 109 H Carbon Dioxide Anion Gap BUN 55 H 52 H Creatinine POC Glucose 186 H Random Glucose 193 H 339 H Fasting Glucose Lactic Acid Lactic Acid F/U @ 2Hr Calcium Iron TIBC Total Bilirubin Direct Bilirubin ALT Troponin I High Sens B-Natriuretic Peptide Total Protein Albumin Urine Protein Urine Glucose (UA) Urine Blood Ur Leukocyte Esterase Urine RBC Urine WBC Random Vancomycin 12.7 L Crossmatch 02/19/23 02/19/23 02/20/23 16:13 20:03 07:12 WBC RBC Hgb Hct MCV MCH MCHC RDW Plt Count Immature Gran % (Auto) Neut % (Auto) Lymph % (Auto) Lymph # (Auto) Abs Immat Gran (auto) Absolute Neuts (auto) Absolute Nucleated RBC Nucleated RBC % (auto) PT INR ABG pH at Pt Temp ABG pO2 at Pt Temp ABG HCO3 VBG pH VBG HCO3 Sodium Potassium Chloride Carbon Dioxide Anion Gap BUN 43 H Creatinine POC Glucose 300 H 414 H* Random Glucose 294 H Fasting Glucose Lactic Acid Lactic Acid F/U @ 2Hr Calcium Iron TIBC Total Bilirubin Direct Bilirubin ALT Troponin I High Sens B-Natriuretic Peptide Total Protein Albumin Urine Protein Urine Glucose (UA) Urine Blood Ur Leukocyte Esterase Urine RBC Urine WBC Random Vancomycin Crossmatch 02/20/23 02/20/23 02/20/23 07:44 11:55 13:27 WBC RBC Hgb Hct MCV MCH MCHC RDW Plt Count Immature Gran % (Auto) Neut % (Auto) Lymph % (Auto) Lymph # (Auto) Abs Immat Gran (auto) Absolute Neuts (auto) Absolute Nucleated RBC Nucleated RBC % (auto) PT INR ABG pH at Pt Temp ABG pO2 at Pt Temp ABG HCO3 VBG pH VBG HCO3 Sodium Potassium Chloride Carbon Dioxide Anion Gap BUN Creatinine POC Glucose 298 H 231 H Random Glucose Fasting Glucose Lactic Acid Lactic Acid F/U @ 2Hr Calcium Iron TIBC Total Bilirubin Direct Bilirubin ALT Troponin I High Sens 137.8 H* D B-Natriuretic Peptide Total Protein Albumin Urine Protein Urine Glucose (UA) Urine Blood Ur Leukocyte Esterase Urine RBC Urine WBC Random Vancomycin Crossmatch 02/20/23 02/20/23 02/20/23 13:28 15:50 19:35 WBC RBC Hgb Hct MCV MCH MCHC RDW Plt Count Immature Gran % (Auto) Neut % (Auto) Lymph % (Auto) Lymph # (Auto) Abs Immat Gran (auto) Absolute Neuts (auto) Absolute Nucleated RBC Nucleated RBC % (auto) PT INR ABG pH at Pt Temp ABG pO2 at Pt Temp ABG HCO3 VBG pH VBG HCO3 Sodium Potassium Chloride Carbon Dioxide Anion Gap BUN Creatinine POC Glucose 226 H Random Glucose Fasting Glucose Lactic Acid Lactic Acid F/U @ 2Hr Calcium Iron TIBC Total Bilirubin Direct Bilirubin ALT Troponin I High Sens 149.8 H* B-Natriuretic Peptide Total Protein Albumin Urine Protein Urine Glucose (UA) Urine Blood Ur Leukocyte Esterase Urine RBC Urine WBC Random Vancomycin 13.0 L Crossmatch 02/20/23 02/21/23 02/21/23 19:57 06:56 07:06 WBC RBC Hgb Hct MCV MCH MCHC RDW Plt Count Immature Gran % (Auto) Neut % (Auto) Lymph % (Auto) Lymph # (Auto) Abs Immat Gran (auto) Absolute Neuts (auto) Absolute Nucleated RBC Nucleated RBC % (auto) PT INR ABG pH at Pt Temp ABG pO2 at Pt Temp ABG HCO3 VBG pH VBG HCO3 Sodium Potassium Chloride 109 H Carbon Dioxide Anion Gap BUN 33 H Creatinine POC Glucose 120 H 121 H Random Glucose Fasting Glucose Lactic Acid Lactic Acid F/U @ 2Hr Calcium 8.1 L D Iron TIBC Total Bilirubin Direct Bilirubin ALT Troponin I High Sens B-Natriuretic Peptide Total Protein Albumin Urine Protein Urine Glucose (UA) Urine Blood Ur Leukocyte Esterase Urine RBC Urine WBC Random Vancomycin Crossmatch 02/21/23 02/21/23 02/21/23 10:53 13:15 16:22 WBC RBC Hgb Hct MCV MCH MCHC RDW Plt Count Immature Gran % (Auto) Neut % (Auto) Lymph % (Auto) Lymph # (Auto) Abs Immat Gran (auto) Absolute Neuts (auto) Absolute Nucleated RBC Nucleated RBC % (auto) PT INR ABG pH at Pt Temp ABG pO2 at Pt Temp ABG HCO3 VBG pH VBG HCO3 Sodium Potassium Chloride Carbon Dioxide Anion Gap BUN Creatinine POC Glucose 151 H 212 H Random Glucose Fasting Glucose Lactic Acid Lactic Acid F/U @ 2Hr Calcium Iron TIBC Total Bilirubin Direct Bilirubin ALT Troponin I High Sens B-Natriuretic Peptide Total Protein Albumin Urine Protein Urine Glucose (UA) Urine Blood Ur Leukocyte Esterase Urine RBC Urine WBC Random Vancomycin 14.6 L Crossmatch 02/21/23 02/21/23 02/22/23 19:43 23:30 05:42 WBC RBC Hgb 9.9 L Hct 35.2 L MCV 69.7 L MCH 19.6 L MCHC 28.1 L RDW 23.9 H Plt Count 118 L Immature Gran % (Auto) Neut % (Auto) Lymph % (Auto) Lymph # (Auto) Abs Immat Gran (auto) Absolute Neuts (auto) Absolute Nucleated RBC Nucleated RBC % (auto) PT INR ABG pH at Pt Temp ABG pO2 at Pt Temp ABG HCO3 VBG pH VBG HCO3 Sodium Potassium Chloride Carbon Dioxide 31 H Anion Gap 10 L BUN 27 H Creatinine POC Glucose 191 H 174 H Random Glucose Fasting Glucose 161 H Lactic Acid Lactic Acid F/U @ 2Hr Calcium Iron TIBC Total Bilirubin Direct Bilirubin ALT Troponin I High Sens B-Natriuretic Peptide Total Protein Albumin Urine Protein Urine Glucose (UA) Urine Blood Ur Leukocyte Esterase Urine RBC Urine WBC Random Vancomycin Crossmatch 02/22/23 02/22/23 02/22/23 07:17 11:27 16:48 WBC RBC Hgb Hct MCV MCH MCHC RDW Plt Count Immature Gran % (Auto) Neut % (Auto) Lymph % (Auto) Lymph # (Auto) Abs Immat Gran (auto) Absolute Neuts (auto) Absolute Nucleated RBC Nucleated RBC % (auto) PT INR ABG pH at Pt Temp ABG pO2 at Pt Temp ABG HCO3 VBG pH VBG HCO3 Sodium Potassium Chloride Carbon Dioxide Anion Gap BUN Creatinine POC Glucose 150 H 189 H 172 H Random Glucose Fasting Glucose Lactic Acid Lactic Acid F/U @ 2Hr Calcium Iron TIBC Total Bilirubin Direct Bilirubin ALT Troponin I High Sens B-Natriuretic Peptide Total Protein Albumin Urine Protein Urine Glucose (UA) Urine Blood Ur Leukocyte Esterase Urine RBC Urine WBC Random Vancomycin Crossmatch 02/22/23 02/22/23 02/23/23 20:29 22:32 06:32 WBC 13.4 H RBC Hgb 9.4 L Hct 34.1 L MCV 72.1 L MCH 19.9 L MCHC 27.6 L RDW 24.2 H Plt Count 144 L Immature Gran % (Auto) Neut % (Auto) Lymph % (Auto) Lymph # (Auto) Abs Immat Gran (auto) Absolute Neuts (auto) Absolute Nucleated RBC Nucleated RBC % (auto) PT INR ABG pH at Pt Temp ABG pO2 at Pt Temp ABG HCO3 VBG pH VBG HCO3 Sodium Potassium Chloride Carbon Dioxide Anion Gap BUN 27 H Creatinine POC Glucose 168 H Random Glucose Fasting Glucose 135 H Lactic Acid Lactic Acid F/U @ 2Hr Calcium Iron TIBC Total Bilirubin Direct Bilirubin ALT Troponin I High Sens 97.5 H* B-Natriuretic Peptide Total Protein Albumin Urine Protein Urine Glucose (UA) Urine Blood Ur Leukocyte Esterase Urine RBC Urine WBC Random Vancomycin Crossmatch 02/23/23 02/23/23 02/23/23 07:41 10:34 11:21 WBC RBC Hgb Hct MCV MCH MCHC RDW Plt Count Immature Gran % (Auto) Neut % (Auto) Lymph % (Auto) Lymph # (Auto) Abs Immat Gran (auto) Absolute Neuts (auto) Absolute Nucleated RBC Nucleated RBC % (auto) PT INR ABG pH at Pt Temp ABG pO2 at Pt Temp ABG HCO3 VBG pH 7.51 H VBG HCO3 30 H Sodium Potassium Chloride Carbon Dioxide Anion Gap BUN Creatinine POC Glucose 118 H 125 H Random Glucose Fasting Glucose Lactic Acid Lactic Acid F/U @ 2Hr Calcium Iron TIBC Total Bilirubin Direct Bilirubin ALT Troponin I High Sens B-Natriuretic Peptide Total Protein Albumin Urine Protein Urine Glucose (UA) Urine Blood Ur Leukocyte Esterase Urine RBC Urine WBC Random Vancomycin Crossmatch 02/23/23 02/23/23 02/23/23 15:32 16:04 20:10 WBC RBC Hgb Hct MCV MCH MCHC RDW Plt Count Immature Gran % (Auto) Neut % (Auto) Lymph % (Auto) Lymph # (Auto) Abs Immat Gran (auto) Absolute Neuts (auto) Absolute Nucleated RBC Nucleated RBC % (auto) PT INR ABG pH at Pt Temp ABG pO2 at Pt Temp ABG HCO3 VBG pH VBG HCO3 Sodium Potassium Chloride Carbon Dioxide Anion Gap BUN Creatinine POC Glucose 145 H 139 H Random Glucose Fasting Glucose Lactic Acid Lactic Acid F/U @ 2Hr Calcium Iron TIBC Total Bilirubin Direct Bilirubin ALT Troponin I High Sens B-Natriuretic Peptide Total Protein Albumin Urine Protein Urine Glucose (UA) Urine Blood Ur Leukocyte Esterase Urine RBC Urine WBC Random Vancomycin 10.6 L Crossmatch 02/24/23 02/24/23 02/24/23 06:39 07:53 12:22 WBC RBC Hgb 8.7 L Hct 30.5 L MCV 71.6 L MCH 20.4 L MCHC 28.5 L RDW 24.5 H Plt Count 150 L Immature Gran % (Auto) Neut % (Auto) Lymph % (Auto) Lymph # (Auto) Abs Immat Gran (auto) Absolute Neuts (auto) Absolute Nucleated RBC 0.030 H Nucleated RBC % (auto) 0.3 H PT INR ABG pH at Pt Temp ABG pO2 at Pt Temp ABG HCO3 VBG pH VBG HCO3 Sodium 147 H Potassium Chloride 109 H Carbon Dioxide Anion Gap BUN 31 H Creatinine POC Glucose 152 H 187 H Random Glucose Fasting Glucose 147 H Lactic Acid Lactic Acid F/U @ 2Hr Calcium Iron TIBC Total Bilirubin 3.9 H Direct Bilirubin 1.6 H ALT Troponin I High Sens B-Natriuretic Peptide Total Protein 5.4 L Albumin 3.3 L Urine Protein Urine Glucose (UA) Urine Blood Ur Leukocyte Esterase Urine RBC Urine WBC Random Vancomycin Crossmatch 02/24/23 02/24/23 02/25/23 16:29 20:54 05:59 WBC RBC Hgb Hct MCV MCH MCHC RDW Plt Count Immature Gran % (Auto) Neut % (Auto) Lymph % (Auto) Lymph # (Auto) Abs Immat Gran (auto) Absolute Neuts (auto) Absolute Nucleated RBC Nucleated RBC % (auto) PT 24.2 H D INR 2.0 H ABG pH at Pt Temp ABG pO2 at Pt Temp ABG HCO3 VBG pH VBG HCO3 Sodium Potassium Chloride 113 H Carbon Dioxide Anion Gap 10 L BUN 33 H Creatinine POC Glucose 207 H 202 H Random Glucose Fasting Glucose 198 H Lactic Acid Lactic Acid F/U @ 2Hr Calcium Iron TIBC Total Bilirubin 2.9 H Direct Bilirubin 1.4 H ALT 44 H Troponin I High Sens B-Natriuretic Peptide Total Protein 5.0 L Albumin 2.8 L Urine Protein Urine Glucose (UA) Urine Blood Ur Leukocyte Esterase Urine RBC Urine WBC Random Vancomycin Crossmatch 02/25/23 02/25/23 02/25/23 07:35 07:37 11:18 WBC 12.8 H RBC Hgb 10.2 L Hct 35.4 L MCV 70.9 L MCH 20.4 L MCHC 28.8 L RDW 25.4 H Plt Count Immature Gran % (Auto) Neut % (Auto) Lymph % (Auto) Lymph # (Auto) Abs Immat Gran (auto) Absolute Neuts (auto) Absolute Nucleated RBC 0.050 H Nucleated RBC % (auto) 0.4 H PT INR ABG pH at Pt Temp ABG pO2 at Pt Temp ABG HCO3 VBG pH VBG HCO3 Sodium Potassium Chloride Carbon Dioxide Anion Gap BUN Creatinine POC Glucose 195 H 189 H Random Glucose Fasting Glucose Lactic Acid Lactic Acid F/U @ 2Hr Calcium Iron TIBC Total Bilirubin Direct Bilirubin ALT Troponin I High Sens B-Natriuretic Peptide Total Protein Albumin Urine Protein Urine Glucose (UA) Urine Blood Ur Leukocyte Esterase Urine RBC Urine WBC Random Vancomycin Crossmatch 02/25/23 02/25/23 16:29 21:05 WBC RBC Hgb Hct MCV MCH MCHC RDW Plt Count Immature Gran % (Auto) Neut % (Auto) Lymph % (Auto) Lymph # (Auto) Abs Immat Gran (auto) Absolute Neuts (auto) Absolute Nucleated RBC Nucleated RBC % (auto) PT INR ABG pH at Pt Temp ABG pO2 at Pt Temp ABG HCO3 VBG pH VBG HCO3 Sodium Potassium Chloride Carbon Dioxide Anion Gap BUN Creatinine POC Glucose 169 H 158 H Random Glucose Fasting Glucose Lactic Acid Lactic Acid F/U @ 2Hr Calcium Iron TIBC Total Bilirubin Direct Bilirubin ALT Troponin I High Sens B-Natriuretic Peptide Total Protein Albumin Urine Protein Urine Glucose (UA) Urine Blood Ur Leukocyte Esterase Urine RBC Urine WBC Random Vancomycin Crossmatch Microbiology: Microbiology 02/13/23 19:56 Blood - Venous Blood Culture - Final No growth after 5 days. 02/13/23 20:06 Blood - Venous Blood Culture - Final No growth after 5 days. 02/13/23 Unknown Urine clean catch - Urine jimenez top Urine Culture - Final No growth. Assessment and Plan (1) Septic pulmonary embolism: Qualifiers: Chronicity: chronic Acute cor pulmonale presence: without acute cor pulmonale Qualified Code(s): I26.90 - Septic pulmonary embolism without acute cor pulmonale; I27.82 - Chronic pulmonary embolism Status: Acute (2) Pneumonia: Qualifiers: Pneumonia type: due to unspecified organism Laterality: bilateral Lung location: unspecified part of lung Qualified Code(s): J18.9 - Pneumonia, unspecified organism Status: Acute Plan Continue antibiotic therapy Evaluating for source of the septic emboli and hemotagenous spread ?endocarditis versus deep tissue infection If the patient does not improve on the current therapy, then consider bronchoscopy Time Spent With Patient Time: Total time managing care of this patient today ____ minutes. Procedures Date of Service Date of Service: 02/25/23
[2023-02-26] VITALS: BP 143/89; PULSE 89; RESP 20; TEMP 36.1; O2SAT 100
[2023-02-26] MEDS: Heparin Sodium,Porcine Flush 50 UNITS/5 ML SYRINGE IVFLUSH ×3 (00:34→23:47)
[2023-02-26 04:00] VITALS: BP 134/88; PULSE 85; RESP 20; TEMP 36; O2SAT 100
[2023-02-26] MEDS: vancomycin HCL 500 MG in 0.9 % Sodium Chloride 100 ML 110 MG IV ×2 (04:26→17:29)
--- NOTE | 2023-02-26 05:47 | PC.NURSE ---
While sleeping patient O2 sats down to 85%, placed on 2L O2 to maintain O2 sats. Improved with 2L.
[2023-02-26 06:24] LABS: Hematocrit 35.1 % (37.0-47.0); Hemoglobin 9.7 g/dl (12.0-16.0); Mean Corpuscular HGB Conc 27.6 g/dl (31.0-35.0)
[2023-02-26 06:26] LABS: Mean Corpuscular Hemoglobin 20.6 pg (27.0-33.0); Mean Corpuscular Volume 74.5 fL (80.0-98.0); Platelet Count 137 X10*3/uL (160-400); Red Blood Count 4.71 X10*6/uL (4.20-5.50); Red Cell Distribution Width 25.6 % (11.0-16.0); White Blood Count 9.6 X10*3/uL (4.8-10.8)
[2023-02-26 06:29] LABS: PLT ABN DIST 1
[2023-02-26 06:40] LABS: Anion Gap 9 (12-20); Blood Urea Nitrogen 23 mg/dL (9-16); Calcium 6.9 mg/dL (8.4-10.2); Carbon Dioxide 27 mmol/L (22-29); Chloride 112 mmol/L (96-108); Estimated Glomerular Filt Rate > 60; Glucose Random 151 mg/dL (60-115); Potassium 3.1 mmol/L (3.3-5.1); Sodium 145 mmol/L (135-145)
[2023-02-26 07:27] VITALS: BP 147/80; PULSE 90; RESP 17; TEMP 36.2; O2SAT 100
[2023-02-26] MEDS: Fluticasone/Vilanterol 100/25 BLST.W.DEV 1 PUFF INHALE (07:33)
[2023-02-26 07:38] VITALS: PULSE 87; RESP 16; O2SAT 100
[2023-02-26 08:17] LABS: Glucose, Whole Blood 160 mg/dL (60-115)
[2023-02-26] MEDS: Insulin Lispro 100 UNIT/ML 3 ML VIAL SUBCUT ×2 (08:17→12:47)
[2023-02-26] MEDS: Potassium Chloride Packet 20 MEQ PACKET 40 MEQ PO (08:18)
[2023-02-26] MEDS: Apixaban 5 MG TABLET PO ×2 (08:43→20:12)
[2023-02-26] MEDS: Clopidogrel Bisulfate 75 MG TABLET PO (08:43)
[2023-02-26] MEDS: carvediloL 3.125 MG TABLET PO ×2 (08:43→20:12)
[2023-02-26] MEDS: Losartan Potassium 25 MG TABLET PO (08:43)
--- NOTE | 2023-02-26 10:44 | HO.PM.IMPN ---
Subjective Subjective Date of Service: 02/26/23 Interval History: Seen and evaluated this morning alert, sweetly confused, not her normal self vitals stable with no complaints Denies any fever or chills Review of Systems Review of Systems: Yes all other systems are reviewed and are negative Physical Exam Vital Signs: Vital Signs: Last Vital Signs Temp 97.2 F 02/26/23 07:27 Pulse 87 02/26/23 07:38 Resp 16 02/26/23 07:38 BP 147/80 H 02/26/23 07:27 Pulse Ox 100 02/26/23 07:27 O2 Del Method Nasal Cannula 02/26/23 07:27 O2 Flow Rate 2 02/26/23 07:27 FiO2 25 02/16/23 10:00 BMI result Body Mass Index 30.2 Const: Other: Constitutional : Awake, interactive, not in distress Neck : Normal inspection, Supple Cardiovascular : RRR, no JVP, no lower extremity edema Respiratory : good bilateral air entry, no crackles, wheezes or rhonchi Gastrointestinal: soft, lax, Normal bowel sounds, Non tender Skin : Warm, Dry Skeletal: Lt BKA with poorly healing wound covered w dressing Neurological : Alert & confused x3, No focal deficit Objective Data Active Medications Acetaminophen (Acetaminophen 325 Mg Tablet) 975 mg PO TID [facility] Last Admin: 02/26/23 08:45 Dose: Not Given Documented By: MARY Non-Admin Reason: Patient Refused Apixaban (Apixaban 5 Mg Tablet) 5 mg PO BID [facility] Last Admin: 02/26/23 08:43 Dose: 5 mg Documented By: MARY Atorvastatin Calcium (Atorvastatin Calcium 80 Mg Tablet) 80 mg PO BEDTIME [facility] Last Admin: 02/25/23 20:25 Dose: Not Given Documented By: LORE Non-Admin Reason: Patient Refused Carvedilol (Carvedilol 3.125 Mg Tablet) 3.125 mg PO BID [facility]; Protocol Last Admin: 02/26/23 08:43 Dose: 3.125 mg Documented By: MARY Clopidogrel Bisulfate (Clopidogrel Bisulfate 75 Mg Tablet) 75 mg PO DAILY [facility] Last Admin: 02/26/23 08:43 Dose: 75 mg Documented By: MARY Dextrose (Dextrose 50 % 25 Gm/50 Ml Syringe) 25 gm IVPUSH Q15M PRN; Protocol PRN Reason: per Hypoglycemia Standing Ord. Fluticasone/Vilanterol (Fluticasone/Vilanterol 100/25 Blst.W.Dev) 1 puff INHALE RDAILY [facility] Last Admin: 02/26/23 07:33 Dose: 1 puff Documented By: HARVEY Furosemide (Furosemide 40 Mg Tablet) 40 mg PO DAILY [facility]; Protocol Last Admin: 02/19/23 08:29 Dose: 40 mg Documented By: ALEXIAORRDouglas Glucose (Glucose Gel 15 Gm Gel..Gram.) 15 gm PO Q15M PRN; Protocol PRN Reason: per Hypoglycemia Standing Ord. Heparin Sodium (Porcine) (Heparin Sodium,Porcine Flush 50 Units/5 Ml Syringe) 50 units IVFLUSH QSHIFT [facility] Last Admin: 02/26/23 08:43 Dose: Not Given Documented By: MARY Non-Admin Reason: IV Running Dextrose/Sodium Chloride (D51/2ns) 1,000 mls @ 80 mls/hr IVCONT .[id number] [facility] Last Admin: 02/25/23 21:54 Dose: 80 mls/hr Documented By: LORE Vancomycin HCl 500 mg/ Sodium (Chloride) 110 mls @ 110 mls/hr IV Q12H [facility] Last Infusion: 02/26/23 05:32 Dose: Infused Documented By: LORE Ceftriaxone Sodium 2 gm/ (Sodium Chloride) 50 mls @ 100 mls/hr IV Q24H [facility] Last Infusion: 02/25/23 12:50 Dose: Infused Documented By: MARY Insulin Human Lispro (Insulin Lispro 100 Unit/Ml 3 Ml Vial) 0 unit SUBCUT QIDACHS [facility]; Protocol Last Admin: 02/26/23 08:17 Dose: 2 unit Documented By: MARY Lactulose (Lactulose 20 Gm/30 Ml Solution) 20 gm PO BID [facility] Last Admin: 02/26/23 08:45 Dose: Not Given Documented By: MARY Non-Admin Reason: Patient Refused Losartan Potassium (Losartan Potassium 25 Mg Tablet) 25 mg PO DAILY [facility]; Protocol Last Admin: 02/26/23 08:43 Dose: 25 mg Documented By: MARY Ondansetron HCl (Ondansetron Hcl 4 Mg/2 Ml Vial) 4 mg IVPUSH Q8H PRN PRN Reason: Nausea and Vomiting Last Admin: 02/22/23 20:08 Dose: 4 mg Documented By: CHARLIE Prednisone (Prednisone 20 Mg Tablet) 20 mg PO DAILY [facility] Last Admin: 02/26/23 08:45 Dose: Not Given Documented By: MARY Non-Admin Reason: Patient Refused Tiotropium [place] (Tiotropium [place] 2.5 Mcg Inhaler) 2 puff INHALE RDAILY [facility] Last Admin: 02/26/23 07:33 Dose: 2 puff Documented By: HARVEY Labs 02/26/23 05:36 02/26/23 05:36 Labs: Laboratory Results - last 24 hr 02/25/23 02/25/23 02/25/23 11:18 16:29 17:14 MCV MCH MCHC RDW Plt Count MPV Absolute Nucleated RBC Nucleated RBC % (auto) Anion Gap Estim Creat Clear Calc Estimated GFR POC Glucose 189 H 169 H Random Glucose Calcium Random Vancomycin 16.4 02/25/23 02/26/23 02/26/23 21:05 05:36 08:12 MCV 74.5 L MCH 20.6 L MCHC 27.6 L RDW 25.6 H Plt Count 137 L MPV Not Reportable Absolute Nucleated RBC 0.000 Nucleated RBC % (auto) 0.0 Anion Gap 9 L Estim Creat Clear Calc 91.0 Estimated GFR > 60 POC Glucose 158 H 160 H Random Glucose 151 H Calcium 6.9 L D Random Vancomycin Assessment and Plan (1) Toxic metabolic encephalopathy: Status: Acute (2) Infective endocarditis: Status: Acute Plan 52F PMH DM, c/b chronic foot wound s/p L BKA, CAD, s/p LAD stent, chronic systolic CHF, COPD, asthma, p/t ED on 02/14 w/ diffuse pain, suffered PEA arrest, w/ ROSC w/in 15 minutes, arrest thought to be d/t hypoxia, of unclear etiology, intubated, admitted ICU and extubated. Culture negative infective endocarditis Left [facility] many times AMA, has ROB showing aortic valve possible vegetations with negative blood cultures follow-up repeat blood cultures, no growth to date echocardiogram here demonstrating LVEF 10%, unchanged from before, not suggestion of vegetations ID appreciated - treat with 6 weeks of IV abx of Vanco and Cefepime (Dapto\CTX as alternative) (end mar) acute toxic metabolic encephalopathy negative ct head could be 2/2 medications, hospital stay change Cefepime to CXT DC Baclofen as well avoid meds that might affect her mentation Hypokalemia, acute give replacement, follow bmp left lung opacity likely pneumonia per Pulm, no need for intervention at this point conitnue broad spectrum antibiotics, id follow up PEA Arrest s\p ROSC post CPR on admission unclear etiology, thought to be d/t hypoxia Blood cultures from admission still negative Capacity question patient appeared to have sufficient insight to make medical decisions (prior to current encephalopathy), she will need a new eval in case she decided to sign AMA. Cardiac pause Had an episode of pause of 5 seconds with vomiting, no recurrence , could be vasovagal restart coreg on Tele IRAIS 2/2 PEA arrest; resolved I\O monitor BMP thrombocytopenia Improved Acute hypernatremia resolved [id number] diabetes mellitus sliding scale insulin reduce home Lantus NSVT 2/2 Congestive heart failure with reduced ejection fraction. Continue Coreg, losartan furosemide Coronary artery disease status post stent to proximal LAD Continue beta-connor, statin and Plavix COPD. No exacerbation during admission. Continue home inhalers Tobacco use disorder Counseled regarding cessation.?Refused nicotine patch Microcytic anemia Stable Paroxysmal atrial fibrillation On Eliquis DVT prophylaxis Eliquis reason for continued hospitalization:ams , endocarditis pending SNF Time Spent With Patient Time: Total time managing care of this patient today ____ minutes. Quality Stroke Does the patient have a stroke diagnosis?: No VTE Prior VTE?: No VTE Risk Level:: Medical - moderate - high VTE Device Contraindication: N/A - Device Ordered VTE Drug Contraindication: N/A - Med Ordered
[2023-02-26 12:00] VITALS: BP 143/86; PULSE 80; RESP 18; TEMP 36.7; O2SAT 100
[2023-02-26 12:24] LABS: Glucose, Whole Blood 152 mg/dL (60-115)
[2023-02-26] MEDS: cefTRIAXone sodium 2 GM in 0.9 % Sodium Chloride 50 ML IV (12:47)
[2023-02-26 17:06] LABS: Glucose, Whole Blood 101 mg/dL (60-115)
[2023-02-26 20:10] VITALS: BP 138/84; PULSE 77
[2023-02-26] MEDS: Atorvastatin Calcium 80 MG TABLET PO (20:12)
[2023-02-26 22:43] LABS: Ammonia 29 umol/L (13-55)
[2023-02-26 22:50] LABS: Glucose, Whole Blood 70 mg/dL (60-115)
[2023-02-27] VITALS: BP 136/81; PULSE 73; RESP 18; TEMP 37; O2SAT 98
[2023-02-27] MEDS: Heparin Sodium,Porcine Flush 50 UNITS/5 ML SYRINGE IVFLUSH ×2 (00:47→09:45)
[2023-02-27 03:37] VITALS: BP 124/82; PULSE 76; RESP 20; TEMP 36.3; O2SAT 100
[2023-02-27] MEDS: vancomycin HCL 500 MG in 0.9 % Sodium Chloride 100 ML 110 MG IV ×2 (05:10→16:22)
[2023-02-27 07:47] LABS: Glucose, Whole Blood 83 mg/dL (60-115)
[2023-02-27 07:50] VITALS: BP 140/81; PULSE 74; RESP 16; TEMP 36.4; O2SAT 100
[2023-02-27 08:15] LABS: Anion Gap 10 (12-20); Blood Urea Nitrogen 17 mg/dL (9-16); Carbon Dioxide 26 mmol/L (22-29); Chloride 114 mmol/L (96-108); Creatinine Clr Calc Pharmacy 97.8; Estimated Glomerular Filt Rate > 60; Glucose Random 85 mg/dL (60-115); Potassium 3.4 mmol/L (3.3-5.1); Sodium 147 mmol/L (135-145)
--- NOTE | 2023-02-27 08:58 | P.PNIM_ITS ---
Subjective Subjective Date of Service: 02/27/23 Interval History: much more alert, wants to leave hospital Physical Exam 2 Vital Signs: Vital Signs: Last Vital Signs Temp 97.6 F 02/27/23 07:50 Pulse 74 02/27/23 07:50 Resp 16 02/27/23 07:50 BP 140/81 H 02/27/23 07:50 Pulse Ox 100 02/27/23 07:50 O2 Del Method Nasal Cannula 02/27/23 07:50 O2 Flow Rate 2 02/27/23 07:50 FiO2 25 02/16/23 10:00 BMI result Body Mass Index 30.2 Const: Other: Constitutional : Awake, interactive, not in distress Neck : Normal inspection, Supple Cardiovascular : RRR, no JVP, no lower extremity edema Respiratory : good bilateral air entry, no crackles, wheezes or rhonchi Gastrointestinal: soft, lax, Normal bowel sounds, Non tender Skin : Warm, Dry Skeletal: Lt BKA with poorly healing wound covered w dressing Neurological : Alert & confused x3, No focal deficit Objective Data Active Medications Acetaminophen (Acetaminophen 325 Mg Tablet) 975 mg PO TID [facility] Last Admin: 02/26/23 20:12 Dose: Not Given Documented By: ABDIRAHMAN Non-Admin Reason: Patient Refused Apixaban (Apixaban 5 Mg Tablet) 5 mg PO BID [facility] Last Admin: 02/26/23 20:12 Dose: 5 mg Documented By: ABDIRAHMAN Atorvastatin Calcium (Atorvastatin Calcium 80 Mg Tablet) 80 mg PO BEDTIME [facility] Last Admin: 02/26/23 20:12 Dose: 80 mg Documented By: ABDIRAHMAN Carvedilol (Carvedilol 3.125 Mg Tablet) 3.125 mg PO BID [facility]; Protocol Last Admin: 02/26/23 20:12 Dose: 3.125 mg Documented By: ABDIRAHMAN Clopidogrel Bisulfate (Clopidogrel Bisulfate 75 Mg Tablet) 75 mg PO DAILY [facility] Last Admin: 02/26/23 08:43 Dose: 75 mg Documented By: MARY Dextrose (Dextrose 50 % 25 Gm/50 Ml Syringe) 25 gm IVPUSH Q15M PRN; Protocol PRN Reason: per Hypoglycemia Standing Ord. Fluticasone/Vilanterol (Fluticasone/Vilanterol 100/25 Blst.W.Dev) 1 puff INHALE RDAILY [facility] Last Admin: 02/27/23 08:00 Dose: Not Given Documented By: EMILIE Non-Admin Reason: Patient Refused Furosemide (Furosemide 40 Mg Tablet) 40 mg PO DAILY [facility]; Protocol Last Admin: 02/19/23 08:29 Dose: 40 mg Documented By: ALEXIAORRDouglas Glucose (Glucose Gel 15 Gm Gel..Gram.) 15 gm PO Q15M PRN; Protocol PRN Reason: per Hypoglycemia Standing Ord. Heparin Sodium (Porcine) (Heparin Sodium,Porcine Flush 50 Units/5 Ml Syringe) 50 units IVFLUSH QSHIFT [facility] Last Admin: 02/26/23 23:47 Dose: 50 units Documented By: ABDIRAHMAN Vancomycin HCl 500 mg/ Sodium (Chloride) 110 mls @ 110 mls/hr IV Q12H [facility] Last Infusion: 02/27/23 06:20 Dose: Infused Documented By: ABDIRAHMAN Ceftriaxone Sodium 2 gm/ (Sodium Chloride) 50 mls @ 100 mls/hr IV Q24H [facility] Last Infusion: 02/26/23 14:00 Dose: Infused Documented By: DENNIS Insulin Human Lispro (Insulin Lispro 100 Unit/Ml 3 Ml Vial) 0 unit SUBCUT QIDACHS [facility]; Protocol Last Admin: 02/27/23 07:44 Dose: Not Given Documented By: CYNDY Non-Admin Reason: No Insulin Coverage Lactulose (Lactulose 20 Gm/30 Ml Solution) 20 gm PO BID [facility] Last Admin: 02/26/23 20:22 Dose: Not Given Documented By: ABDIRAHMAN Non-Admin Reason: Patient Refused Losartan Potassium (Losartan Potassium 25 Mg Tablet) 25 mg PO DAILY [facility]; Protocol Last Admin: 02/26/23 08:43 Dose: 25 mg Documented By: MARY Ondansetron HCl (Ondansetron Hcl 4 Mg/2 Ml Vial) 4 mg IVPUSH Q8H PRN PRN Reason: Nausea and Vomiting Last Admin: 02/22/23 20:08 Dose: 4 mg Documented By: CHARLIE Prednisone (Prednisone 20 Mg Tablet) 20 mg PO DAILY [facility] Last Admin: 02/26/23 08:45 Dose: Not Given Documented By: MARY Non-Admin Reason: Patient Refused Tiotropium [place] (Tiotropium [place] 2.5 Mcg Inhaler) 2 puff INHALE RDAILY [facility] Last Admin: 02/27/23 08:01 Dose: Not Given Documented By: EMILIE Non-Admin Reason: Patient Refused Labs 02/26/23 05:36 02/27/23 06:26 Labs: Laboratory Results - last 24 hr 02/26/23 02/26/23 02/26/23 12:20 16:54 22:27 Anion Gap Estim Creat Clear Calc Estimated GFR POC Glucose 152 H 101 Random Glucose Calcium Ammonia 29 02/26/23 02/27/23 02/27/23 22:45 06:26 07:44 Anion Gap 10 L Estim Creat Clear Calc 97.8 Estimated GFR > 60 POC Glucose 70 83 Random Glucose 85 Calcium 8.0 L D Ammonia Assessment and Plan (1) Toxic metabolic encephalopathy: Status: Acute (2) Infective endocarditis: Status: Acute Plan 52F PMH DM, c/b chronic foot wound s/p L BKA, CAD, s/p LAD stent, chronic systolic CHF, COPD, asthma, p/t ED on 02/14 w/ diffuse pain, suffered PEA arrest, w/ ROSC w/in 15 minutes, arrest thought to be d/t hypoxia, of unclear etiology, intubated, admitted ICU and extubated. Culture negative infective endocarditis Left [facility] many times AMA, has ROB showing aortic valve possible vegetations with negative blood cultures follow-up repeat blood cultures, no growth to date echocardiogram here demonstrating LVEF 10%, unchanged from before, not suggestion of vegetations ID appreciated - treat with 6 weeks of IV abx of Vanco and Cefepime (Dapto\CTX as alternative) (end mar) acute toxic metabolic encephalopathy negative ct head could be 2/2 medications, hospital stay appears back to baseline Hypokalemia, acute give replacement, follow bmp left lung opacity likely pneumonia per Pulm, no need for intervention at this point conitnue broad spectrum antibiotics PEA Arrest s\p ROSC post CPR on admission unclear etiology, thought to be d/t hypoxia Blood cultures from admission still negative Cardiac pause Had an episode of pause of 5 seconds with vomiting, no recurrence , could be vasovagal restarted coreg on Tele IRAIS 2/2 PEA arrest; resolved I\O monitor BMP thrombocytopenia Improved Acute hypernatremia resolved [id number] diabetes mellitus sliding scale insulin reduce home Lantus NSVT 2/2 Congestive heart failure with reduced ejection fraction. Continue Coreg, losartan furosemide Coronary artery disease status post stent to proximal LAD Continue beta-connor, statin and Plavix COPD. No exacerbation during admission. Continue home inhalers Tobacco use disorder Counseled regarding cessation.?Refused nicotine patch Microcytic anemia Stable Paroxysmal atrial fibrillation On Eliquis DVT prophylaxis Eliquis reason for continued hospitalization:endocarditis pending SNF Time Spent With Patient Time: Total time managing care of this patient today ____ minutes. Quality Stroke Does the patient have a stroke diagnosis?: No VTE Prior VTE?: No VTE Risk Level:: Medical - moderate - high VTE Device Contraindication: N/A - Device Ordered VTE Drug Contraindication: N/A - Med Ordered
[2023-02-27] MEDS: Dextrose 5 % 1,000 ML 80 ML IVCONT (09:44)
[2023-02-27] MEDS: Acetaminophen 325 MG TABLET 975 MG PO ×2 (10:34→19:29)
[2023-02-27] MEDS: Apixaban 5 MG TABLET PO ×2 (10:36→19:29)
[2023-02-27] MEDS: Clopidogrel Bisulfate 75 MG TABLET PO (10:36)
[2023-02-27] MEDS: Losartan Potassium 25 MG TABLET PO (10:36)
[2023-02-27] MEDS: carvediloL 3.125 MG TABLET PO ×2 (10:36→19:29)
[2023-02-27] MEDS: predniSONE 20 MG TABLET PO (10:37)
--- NOTE | 2023-02-27 11:17 | MHC.CM.PN ---
EMR reviewed and per MD rounds, pt is medically cleared for D/C to [facility]. Referral updated on [facility], and awaiting bed offer.
--- NOTE | 2023-02-27 11:41 | PC.NURSE ---
pt. refusing to have blood sugar and vitals checked, says she wants to be left alone and unbothered
[2023-02-27 11:47] VITALS: BP 128/76; PULSE 74; RESP 16; TEMP 36.9; O2SAT 94
[2023-02-27] MEDS: cefTRIAXone sodium 2 GM in 0.9 % Sodium Chloride 50 ML IV (12:50)
[2023-02-27 15:47] VITALS: BP 137/82; PULSE 79; RESP 19; TEMP 37.2; O2SAT 100
[2023-02-27 15:55] LABS: Vancomycin Trough 13.1 mcg/mL (10.0-20.0)
--- NOTE | 2023-02-27 16:04 | MHC.CM.PN ---
EMR reviewed and per MD rounds, pt is medically cleared for D/C pending SNF bed offer. Referral updated on [facility] following and state they should have a bed available in a few days. CM will continue to follow.
--- NOTE | 2023-02-27 16:14 | MHC.SLORD ---
Speech Language Pathology Order Status: Attempted to see pt for dysphagia tx, pt was not participatory. Pt was tearful, stating I can't fully breathe, began crying. RNs on floor were immediately notified, notified by Dima. VIDEO EFFECTS EDITOR will continue to follow during hospitalization.
[2023-02-27 16:16] LABS: Glucose, Whole Blood 230 mg/dL (60-115)
--- NOTE | 2023-02-27 16:37 | HE.PHANOTE ---
VANCO DOSE ADJUSTMENT. TROUGH OF 13.1 AND HAS BEEN DECREASING.INCREASED TO 750 Q 12. NEXT TROUGH 02/28 @ 1500
[2023-02-27 19:57] VITALS: BP 126/83; PULSE 83; RESP 18; TEMP 37; O2SAT 97
[2023-02-27 20:37] LABS: Glucose, Whole Blood 302 mg/dL (60-115)
[2023-02-27] MEDS: Insulin Lispro 100 UNIT/ML 3 ML VIAL SUBCUT (21:13)
[2023-02-28] VITALS (8 sets, daily range): BP systolic 123–156; BP diastolic 77–92; PULSE 76–90; RESP 16–20; TEMP 36.1–37.1; O2SAT 97–99
[2023-02-28] MEDS: vancomycin HCL 750 MG in 0.9 % Sodium Chloride 250 ML 265 MG IV (04:16)
[2023-02-28 07:09] LABS: Glucose, Whole Blood 203 mg/dL (60-115)
[2023-02-28] MEDS: Fluticasone/Vilanterol 100/25 BLST.W.DEV 1 PUFF INHALE (07:59)
[2023-02-28] MEDS: Acetaminophen 325 MG TABLET 975 MG PO ×2 (08:37→20:32)
[2023-02-28] MEDS: Apixaban 5 MG TABLET PO ×2 (08:38→20:32)
[2023-02-28] MEDS: carvediloL 3.125 MG TABLET PO ×2 (08:39→20:32)
[2023-02-28] MEDS: Clopidogrel Bisulfate 75 MG TABLET PO (08:40)
[2023-02-28] MEDS: Losartan Potassium 25 MG TABLET PO (08:41)
[2023-02-28] MEDS: predniSONE 20 MG TABLET PO (08:42)
[2023-02-28 08:48] LABS: Creatinine Clr Calc Pharmacy 107.4; Estimated Glomerular Filt Rate > 60
--- NOTE | 2023-02-28 08:56 | P.PNIM_ITS ---
Subjective Subjective Date of Service: 02/28/23 Interval History: much more alert, \ Physical Exam 2 Vital Signs: Vital Signs: Last Vital Signs Temp 97.6 F 02/28/23 07:34 Pulse 90 02/28/23 07:59 Resp 20 02/28/23 07:59 BP 141/87 H 02/28/23 07:34 Pulse Ox 98 02/28/23 07:34 O2 Del Method Room Air 02/28/23 07:34 O2 Flow Rate 2 02/27/23 07:50 FiO2 25 02/16/23 10:00 BMI result Body Mass Index 30.2 Const: Other: Constitutional : Awake, interactive, not in distress Neck : Normal inspection, Supple Cardiovascular : RRR, no JVP, no lower extremity edema Respiratory : good bilateral air entry, no crackles, wheezes or rhonchi Gastrointestinal: soft, lax, Normal bowel sounds, Non tender Skin : Warm, Dry Skeletal: Lt BKA with poorly healing wound covered w dressing Neurological : Alert & confused x3, No focal deficit Objective Data Active Medications Acetaminophen (Acetaminophen 325 Mg Tablet) 975 mg PO TID ON LICENSE OF [facility] Last Admin: 02/28/23 08:37 Dose: 975 mg Documented By: SHRADDHA Apixaban (Apixaban 5 Mg Tablet) 5 mg PO BID ON LICENSE OF [facility] Last Admin: 02/28/23 08:38 Dose: 5 mg Documented By: SHRADDHA Atorvastatin Calcium (Atorvastatin Calcium 80 Mg Tablet) 80 mg PO BEDTIME ON LICENSE OF [facility] Last Admin: 02/27/23 19:30 Dose: Not Given Documented By: IGNACIO Non-Admin Reason: Patient Refused Carvedilol (Carvedilol 3.125 Mg Tablet) 3.125 mg PO BID ON LICENSE OF [facility]; Protocol Last Admin: 02/28/23 08:39 Dose: 3.125 mg Documented By: SHRADDHA Clopidogrel Bisulfate (Clopidogrel Bisulfate 75 Mg Tablet) 75 mg PO DAILY ON LICENSE OF [facility] Last Admin: 02/28/23 08:40 Dose: 75 mg Documented By: SHRADDHA Dextrose (Dextrose 50 % 25 Gm/50 Ml Syringe) 25 gm IVPUSH Q15M PRN; Protocol PRN Reason: per Hypoglycemia Standing Ord. Fluticasone/Vilanterol (Fluticasone/Vilanterol 100/25 Blst.W.Dev) 1 puff INHALE RDAILY ON LICENSE OF [facility] Last Admin: 02/28/23 07:59 Dose: 1 puff Documented By: POLLO Furosemide (Furosemide 40 Mg Tablet) 40 mg PO DAILY ON LICENSE OF [facility]; Protocol Last Admin: 02/19/23 08:29 Dose: 40 mg Documented By: ALEXIAORRDouglas Glucose (Glucose Gel 15 Gm Gel..Gram.) 15 gm PO Q15M PRN; Protocol PRN Reason: per Hypoglycemia Standing Ord. Heparin Sodium (Porcine) (Heparin Sodium,Porcine Flush 50 Units/5 Ml Syringe) 50 units IVFLUSH QSHIFT ON LICENSE OF [facility] Last Admin: 02/27/23 23:21 Dose: Not Given Documented By: ABDIRAHMAN Non-Admin Reason: IV Running Ceftriaxone Sodium 2 gm/ (Sodium Chloride) 50 mls @ 100 mls/hr IV Q24H ON LICENSE OF [facility] Last Infusion: 02/27/23 14:09 Dose: Infused Documented By: CYNDY Dextrose (D5w) 1,000 mls @ 80 mls/hr IVCONT .[id number] ON LICENSE OF [facility] Last Admin: 02/28/23 01:16 Dose: Not Given Documented By: ABDIRAHMAN Non-Admin Reason: IV Running Vancomycin HCl 750 mg/ Sodium (Chloride) 265 mls @ 265 mls/hr IV Q12H ON LICENSE OF [facility] Last Infusion: 02/28/23 05:26 Dose: Infused Documented By: ABDIRAHMAN Insulin Human Lispro (Insulin Lispro 100 Unit/Ml 3 Ml Vial) 0 unit SUBCUT QIDACHS ON LICENSE OF [facility]; Protocol Last Admin: 02/27/23 21:13 Dose: 8 unit Documented By: IGNACIO Losartan Potassium (Losartan Potassium 25 Mg Tablet) 25 mg PO DAILY ON LICENSE OF [facility]; Protocol Last Admin: 02/28/23 08:41 Dose: 25 mg Documented By: SHRADDHA Ondansetron HCl (Ondansetron Hcl 4 Mg/2 Ml Vial) 4 mg IVPUSH Q8H PRN PRN Reason: Nausea and Vomiting Last Admin: 02/22/23 20:08 Dose: 4 mg Documented By: CHARLIE Prednisone (Prednisone 20 Mg Tablet) 20 mg PO DAILY ON LICENSE OF [facility] Last Admin: 02/28/23 08:42 Dose: 20 mg Documented By: SHRADDHA Tiotropium Oden (Tiotropium Oden 2.5 Mcg Inhaler) 2 puff INHALE RDMERCY ON LICENSE OF [facility] Last Admin: 02/28/23 07:59 Dose: 2 puff Documented By: POLLO Labs 02/26/23 05:36 02/28/23 07:45 Labs: Laboratory Results - last 24 hr 02/27/23 02/27/23 02/27/23 15:29 15:48 20:32 Estim Creat Clear Calc Estimated GFR POC Glucose 230 H 302 H Vancomycin Trough 13.1 02/28/23 02/28/23 07:05 07:45 Estim Creat Clear Calc 107.4 Estimated GFR > 60 POC Glucose 203 H Vancomycin Trough Assessment and Plan (1) Toxic metabolic encephalopathy: Status: Acute (2) Infective endocarditis: Status: Acute Plan 52F PMH DM, c/b chronic foot wound s/p L BKA, CAD, s/p LAD stent, chronic systolic CHF, COPD, asthma, p/t ED on 02/14 w/ diffuse pain, suffered PEA arrest, w/ ROSC w/in 15 minutes, arrest thought to be d/t hypoxia, of unclear etiology, intubated, admitted ICU and extubated. Culture negative infective endocarditis Left [facility] many times AMA, has ROB showing aortic valve possible vegetations with negative blood cultures follow-up repeat blood cultures, no growth to date echocardiogram here demonstrating LVEF 10%, unchanged from before, not suggestion of vegetations ID appreciated - treat with 6 weeks of IV abx of Vanco and Cefepime (Dapto\CTX as alternative) (end mar) acute toxic metabolic encephalopathy negative ct head could be 2/2 medications, hospital stay appears back to baseline Hypokalemia, acute give replacement, follow bmp left lung opacity likely pneumonia per Pulm, no need for intervention at this point conitnue broad spectrum antibiotics PEA Arrest s\p ROSC post CPR on admission unclear etiology, thought to be d/t hypoxia Blood cultures from admission still negative Cardiac pause Had an episode of pause of 5 seconds with vomiting, no recurrence , could be vasovagal restarted coreg on Tele IRAIS 2/2 PEA arrest; resolved I\O monitor BMP thrombocytopenia Improved Acute hypernatremia resolved Ulz-dbyrlfz-[id number] diabetes mellitus sliding scale insulin reduce home Lantus NSVT 2/2 Congestive heart failure with reduced ejection fraction. Continue Coreg, losartan furosemide Coronary artery disease status post stent to proximal LAD Continue beta-connor, statin and Plavix COPD. No exacerbation during admission. Continue home inhalers Tobacco use disorder Counseled regarding cessation.?Refused nicotine patch Microcytic anemia Stable Paroxysmal atrial fibrillation On Eliquis DVT prophylaxis Eliquis reason for continued hospitalization:endocarditis pending SNF Time Spent With Patient Time: Total time managing care of this patient today ____ minutes. Quality Stroke Does the patient have a stroke diagnosis?: No VTE Prior VTE?: No VTE Risk Level:: Medical - moderate - high VTE Device Contraindication: N/A - Device Ordered VTE Drug Contraindication: N/A - Med Ordered
[2023-02-28] MEDS: Insulin Lispro 100 UNIT/ML 3 ML VIAL SUBCUT ×2 (09:42→20:32)
[2023-02-28] MEDS: Dextrose 5 % 1,000 ML 80 ML IVCONT ×2 (09:44→20:29)
[2023-02-28 10:57] LABS: Glucose, Whole Blood 217 mg/dL (60-115)
--- NOTE | 2023-02-28 11:21 | MHC.SL.DTX ---
Dysphagia Diet modifications: Last documented Solid diet consistencies: Pureed (NDD1) Last documented Liquid consistency: Thin Changes made to current diet?: Yes Liquid Consistency and Strategies: Liquid Intake Recommendation: Honey Thick Compensatory Strategies for Safe Swallow: No Straws Liquids by Teaspoon Only Compensatory Strategies for Safe Swallow(b): Sitting Upright (90 deg) Liquids from Spoon Small Bites and Sips Rate of Ingestion Change Solid Food Consistency: Dietary Recommendations: Ground/Mech Altered (NDD2) with Thin Liquids. Additional Modifications to Solids Oral Medication Intake: Crushed with Puree Strategies and Precautions to be Taken for Safe Swallow: Sitting Upright (90 deg) Liquids from Spoon Small Bites and Sips Rate of Ingestion Change Supervision While Eating and/Drinking: Total Assistance (1:1) Foods to Avoid: Swallowing Recommended Treatments: Compens. Strategy Educat. Level of Impact on: Daily activities: Interpersonal interactions: Education: Employment: Community: Prognosis for Improvement: Recommendation for Speech: Inpatient Speech Therapy Comment: 1:1 assist and strict aspiration precautions Frequency/Duration: Date Range for Service Req: Timeline to reassess: Additional Comments: CXR 02/23 showin. Layering bilateral pleural effusions on the left increased from prior with worsening new left midlung consolidation which may reflect superimposed aspiration or infection. 2. Right upper extremity PICC catheter tip terminates overlying the right atrium. No pneumothorax. 3. Interval removal of the endotracheal tube and left internal jugular central venous catheter. Treatment: Pt is out of bed in her recliner. She is more alert today and is asking to go home. She has had limited PO intake this weekend per [employer]. She tolerates Honey-Thick Liquids with no overt s/s of aspiration given administered cup sip. Pt has limited BUE strength and RoM and is unable to bring the cup to her mouth. She tolerated Thin Liquids via Ice Chip, Spoon Sip and straw with no overt s/s of aspiration. She tolerate Puree Solids and Ground Solids with adequate oral preparation and mild oral residue with Ground consistency. Pt is edentulous. Health Care Marketing Specialist Clinican/Clinical Fellow: No Supervisory Statement: I have reviewed and agree with the student/clinical fellow's documentation: N/A Speech Language Pathologist: Wm Toro M.A., CCC-FORM SETTER
[2023-02-28 16:14] LABS: Glucose, Whole Blood 223 mg/dL (60-115)
--- NOTE | 2023-02-28 16:18 | HE.PHANOTE ---
Addendum entered by Laverne Alston [facility] 02/28/23 16:24: Clarification: dose missed was on 02/27 @1700. NOT 0500 on 02/28 Original Note: RE: VANCO Patients level came back this evening at 11. I suspect this is due to patient missing first dose of 750 mg from 0500 this morning. Will continue with 750 mg Q12H. Predicted AUC 529. Will get another level 03/01 @1500. Renal function improved, Scr down from 0.67 yesterday to 0.61 today.
[2023-02-28 20:19] LABS: Glucose, Whole Blood 216 mg/dL (60-115)
[2023-02-28] MEDS: Atorvastatin Calcium 80 MG TABLET PO (20:33)
[2023-03-01] VITALS (7 sets, daily range): BP systolic 143–174; BP diastolic 84–98; PULSE 84–91; RESP 16–20; TEMP 36–37.5; O2SAT 97–100
[2023-03-01] MEDS: Heparin Sodium,Porcine Flush 50 UNITS/5 ML SYRINGE IVFLUSH ×3 (00:22→17:26)
[2023-03-01] MEDS: vancomycin HCL 750 MG in 0.9 % Sodium Chloride 250 ML 265 MG IV (04:50)
[2023-03-01 07:14] LABS: Glucose, Whole Blood 184 mg/dL (60-115)
[2023-03-01 07:21] LABS: Creatinine Clr Calc Pharmacy 107.4; Estimated Glomerular Filt Rate > 60
[2023-03-01] MEDS: Fluticasone/Vilanterol 100/25 BLST.W.DEV 1 PUFF INHALE (07:54)
--- NOTE | 2023-03-01 09:15 | HE.PHANOTE ---
RE CHRISTINE PT REFUSED TWO DOSES OF THE MED OVER THE LAST TWO DAYS. DISCUSSED WITH DR ESPINOZA ABOUT CHANGING TO DAPTO, BUT REALIZED THAT PT ALSO BEING TREATED FOR PNA AT THIS TIME. WILL TRY X1 MORE DAY THEN MAY NEED TO CONSIDER A LARGER DOSE (25MG/KG) ONCE DAILY SINCE PT IS HERE WITH ENDOCARDITIS. NEXT LEVEL DUE 03/02 @1500
--- NOTE | 2023-03-01 10:10 | P.PNIM_ITS ---
Subjective Subjective Date of Service: 03/01/23 Interval History: agitated Physical Exam 2 Vital Signs: Vital Signs: Last Vital Signs Temp 99.5 F 03/01/23 07:35 Pulse 90 03/01/23 08:05 Resp 20 03/01/23 07:54 BP 154/86 H 03/01/23 07:35 Pulse Ox 100 03/01/23 07:35 O2 Del Method Room Air 03/01/23 07:35 O2 Flow Rate 2 02/27/23 07:50 FiO2 25 02/16/23 10:00 BMI result Body Mass Index 30.2 Const: Other: Constitutional : Awake, interactive, not in distress Neck : Normal inspection, Supple Cardiovascular : RRR, no JVP, no lower extremity edema Respiratory : good bilateral air entry, no crackles, wheezes or rhonchi Gastrointestinal: soft, lax, Normal bowel sounds, Non tender Skin : Warm, Dry Skeletal: Lt BKA with poorly healing wound covered w dressing Neurological : Alert & confused x3, No focal deficit Objective Data Active Medications Acetaminophen (Acetaminophen 325 Mg Tablet) 975 mg PO TID [facility] Last Admin: 02/28/23 20:32 Dose: 975 mg Documented By: KELLY Apixaban (Apixaban 5 Mg Tablet) 5 mg PO BID [facility] Last Admin: 02/28/23 20:32 Dose: 5 mg Documented By: KELLY Atorvastatin Calcium (Atorvastatin Calcium 80 Mg Tablet) 80 mg PO BEDTIME [facility] Last Admin: 02/28/23 20:33 Dose: 80 mg Documented By: KELLY Carvedilol (Carvedilol 3.125 Mg Tablet) 3.125 mg PO BID [facility]; Protocol Last Admin: 02/28/23 20:32 Dose: 3.125 mg Documented By: KELLY Clopidogrel Bisulfate (Clopidogrel Bisulfate 75 Mg Tablet) 75 mg PO DAILY [facility] Last Admin: 02/28/23 08:40 Dose: 75 mg Documented By: SHRADDHA Dextrose (Dextrose 50 % 25 Gm/50 Ml Syringe) 25 gm IVPUSH Q15M PRN; Protocol PRN Reason: per Hypoglycemia Standing Ord. Fluticasone/Vilanterol (Fluticasone/Vilanterol 100/25 Blst.W.Dev) 1 puff INHALE RDAILY [facility] Last Admin: 03/01/23 07:54 Dose: 1 puff Documented By: POLLO Furosemide (Furosemide 40 Mg Tablet) 40 mg PO DAILY [facility]; Protocol Last Admin: 02/19/23 08:29 Dose: 40 mg Documented By: ALEXIAORRDouglas Glucose (Glucose Gel 15 Gm Gel..Gram.) 15 gm PO Q15M PRN; Protocol PRN Reason: per Hypoglycemia Standing Ord. Heparin Sodium (Porcine) (Heparin Sodium,Porcine Flush 50 Units/5 Ml Syringe) 50 units IVFLUSH QSHIFT [facility] Last Admin: 03/01/23 00:22 Dose: 50 units Documented By: KELLY Ceftriaxone Sodium 2 gm/ (Sodium Chloride) 50 mls @ 100 mls/hr IV Q24H [facility] Last Admin: 02/28/23 13:00 Dose: Not Given Documented By: KIRSTEN Non-Admin Reason: Patient Refused Vancomycin HCl 750 mg/ Sodium (Chloride) 265 mls @ 265 mls/hr IV Q12H [facility] Last Infusion: 03/01/23 06:07 Dose: Infused Documented By: KELLY Insulin Human Lispro (Insulin Lispro 100 Unit/Ml 3 Ml Vial) 0 unit SUBCUT QIDACHS [facility]; Protocol Last Admin: 02/28/23 20:32 Dose: 4 unit Documented By: KELLY Losartan Potassium (Losartan Potassium 25 Mg Tablet) 25 mg PO DAILY [facility]; Protocol Last Admin: 02/28/23 08:41 Dose: 25 mg Documented By: SHRADDHA Ondansetron HCl (Ondansetron Hcl 4 Mg/2 Ml Vial) 4 mg IVPUSH Q8H PRN PRN Reason: Nausea and Vomiting Last Admin: 02/22/23 20:08 Dose: 4 mg Documented By: CHARLIE Prednisone (Prednisone 20 Mg Tablet) 20 mg PO DAILY [facility] Last Admin: 02/28/23 08:42 Dose: 20 mg Documented By: SHRADDHA Tiotropium Adel (Tiotropium Adel 2.5 Mcg Inhaler) [facility] Last Admin: 03/01/23 07:54 Dose: 2 puff Documented By: POLLO Labs 02/26/23 05:36 03/01/23 06:10 Labs: Laboratory Results - last 24 hr 02/28/23 02/28/23 02/28/23 10:54 15:19 16:09 Estim Creat Clear Calc Estimated GFR POC Glucose 217 H 223 H Random Vancomycin 11.0 L 02/28/23 03/01/23 03/01/23 20:13 06:10 07:10 Estim Creat Clear Calc 107.4 Estimated GFR > 60 POC Glucose 216 H 184 H Random Vancomycin Assessment and Plan (1) Toxic metabolic encephalopathy: Status: Acute (2) Infective endocarditis: Status: Acute Plan 52F PMH DM, c/b chronic foot wound s/p L BKA, CAD, s/p LAD stent, chronic systolic CHF, COPD, asthma, p/t ED on 02/14 w/ diffuse pain, suffered PEA arrest, w/ ROSC w/in 15 minutes, arrest thought to be d/t hypoxia, of unclear etiology, intubated, admitted ICU and extubated. Culture negative infective endocarditis Left [facility] many times AMA, has ROB showing aortic valve possible vegetations with negative blood cultures follow-up repeat blood cultures, no growth to date echocardiogram here demonstrating LVEF 10%, unchanged from before, not suggestion of vegetations ID appreciated - treat with 6 weeks of IV abx of Vanco and Cefepime (Dapto\CTX as alternative) (end mar) acute toxic metabolic encephalopathy negative ct head could be 2/2 medications, hospital stay, insomnia came back to baseline, more agitated today and yesterday evening Hypokalemia, acute given replacement left lung opacity likely pneumonia per Pulm, no need for intervention at this point conitnue broad spectrum antibiotics PEA Arrest s\p ROSC post CPR on admission unclear etiology, thought to be d/t hypoxia Blood cultures from admission still negative Cardiac pause Had an episode of pause of 5 seconds with vomiting, no recurrence , could be vasovagal restarted coreg on Tele IRAIS 2/2 PEA arrest; resolved I\O monitor BMP thrombocytopenia Improved Acute hypernatremia resolved Vvv-bkfflbp-frbuhqvul diabetes mellitus sliding scale insulin reduce home Lantus NSVT 2/2 Congestive heart failure with reduced ejection fraction. Continue Coreg, losartan furosemide Coronary artery disease status post stent to proximal LAD Continue beta-connor, statin and Plavix COPD. No exacerbation during admission. Continue home inhalers Tobacco use disorder Counseled regarding cessation.?Refused nicotine patch Microcytic anemia Stable Paroxysmal atrial fibrillation On Eliquis DVT prophylaxis Eliquis reason for continued hospitalization:endocarditis pending SNF Time Spent With Patient Time: Total time managing care of this patient today ____ minutes. Quality Stroke Does the patient have a stroke diagnosis?: No VTE Prior VTE?: No VTE Risk Level:: Medical - moderate - high VTE Device Contraindication: N/A - Device Ordered VTE Drug Contraindication: N/A - Med Ordered
[2023-03-01 10:54] LABS: Glucose, Whole Blood 177 mg/dL (60-115)
[2023-03-01] MEDS: cefTRIAXone sodium 2 GM in 0.9 % Sodium Chloride 50 ML IV (12:41)
[2023-03-01] MEDS: Insulin Lispro 100 UNIT/ML 3 ML VIAL SUBCUT ×2 (12:45→17:25)
[2023-03-01] MEDS: Morphine Sulfate 2 MG/ML CARTRIDGE IVPUSH (12:51)
--- NOTE | 2023-03-01 13:33 | MHC.CM.PN ---
Pt is medically cleared for D/C to STR at [facility], insurance auth obtained. Transportation set for 4pm today via [facility].
--- NOTE | 2023-03-01 13:33 | PM.DS ---
DS: Providers Provider Date of Service: 03/01/23 Date of admission: 02/13/23 23:30 Primary care physician: Danica Vallejo NP Consults: 02/13/23 23:44 Consult to Wound Care Routine Consulting Provider: Kathy Victor Reason for consultation: Left BKA wound 02/17/23 15:51 Consult to General Surgery Routine Consulting Provider: [facility] General Surgeons Reason for consultation: Wound dehiscence for eval and rec. 02/17/23 16:18 Consult to Infectious Diseases Routine Consulting Provider: [facility] Infectious Disease Reason for consultation: Eval for need of Abx, hx of IE and septic embolis 02/20/23 08:22 Consult to Cardiology Routine Consulting Provider: [facility] Cardiovascular Services Reason for consultation: Eval possible IE, recent ROB at [facility] Consult to Vascular Surgery Routine Consulting Provider: [facility] Vascular Services Reason for consultation: Possible need for AKA, Lt BKA wound 02/21/23 11:47 Consult to Psychiatry Routine Consulting Provider: Psych Covering Reason for consultation: ?capacity to decide on medical issues like AMA 02/24/23 13:29 Consult to Gastroenterology Routine Consulting Provider: Marleni Aceves Reason for consultation: worsening liver function over several months 02/24/23 15:46 Consult to Pulmonology Routine Consulting Provider: [facility] Pulmonology Services Reason for consultation: left lung opacity in culture negative endocarditis DS: Diagnosis Discharge Diagnosis (1) Toxic metabolic encephalopathy: Status: Acute (2) Infective endocarditis: Status: Acute DS: Summary Hospital Course Hospital Course: from initial hpi: Chief Complaint: Acute Resp Failure, Cardiac Arrest, CHF, ENdocarditis HPI: 52-year-old female with underlying history of asthma, COPD not on home O2, diabetes, multiple foot infections including 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, right ureteral stone and pyelonephritis, coronary artery disease status post LAD stent, peripheral vascular disease, hypertension, paroxysmal atrial fibrillation on blood thinners, community-acquired pneumonia and septic emboli who has been admitted to this hospital and other local hospitals several times but always leaves AMA Reportedly patient was recently admitted and discharged [facility] place from which she left AMA yesterday, according to family members that talk to the ER provider, it was reported the patient was diagnosed with endocarditis and had been treated with IV antibiotics but subsequently given her desire to leave AMA, was discharged with oral antibiotics, she is supposed to be on blood thinners but has not been taking it. Patient presented to this hospital with reports of having significant redness and swelling of both legs but primarily the left lower extremity and reporting some chest discomfort for but no shortness of breath. Initial workup in the emergency room, revealed no white count, does show increased renal indices with creatinine of 1.9, vital signs had been stable. The patient had been the ear for about 3 hours and is reported that suddenly some of the ER nursing aides noted the patient was yelling and screaming for help and suddenly she became bradycardic and suffered an cardiac arrest, full CPR was done as well as med administration obtaining full ROSC at 10 minutes. The patient was then paralyzed with rocuronium but no sedatives were given. Patient had been intubated and at that time were called for admission, upon seeing the patient, it was eminent that she seemed to be awake for she had people are reaction but appear to be paralyze and her vital signs were correlating with possibility of consciousness as she was significantly tachycardic and hypertensive, propofol ordered, a central line was placed by the ED physician the patient was transfer subsequently to the ICU for further care. hospital course: Patient prolonged hospitalization, please see medical record for full course. She was initially admitted with cardiac arrest, thought to be due to acute hypoxic respiratory failure. She was eventually extubated and downgraded from ICU. She was treated for culture negative infective endocarditis. Cultures continue been negative, she was seen by infectious disease recommended 6 weeks of IV antibiotics with vancomycin and ceftriaxone, to be completed 03/26/2023. PICC line was placed for this purpose. Course was complicated by fluctuating mental status, acute toxic metabolic encephalopathy, likely combination of medication effect, possible delirium, insomnia. Patient was seen by Psychiatry determined to have capacity to make most medical decisions including leaving against medical advice. Course complicated by acute hyperkalemia which was replaced. Left lung pneumonia which was treated with antibiotics. Acute kidney injury which resolved. Acute hypernatremia which resolved. History of coronary disease was continue with Plavix and statin. For paroxysmal atrial fibrillation was continue Eliquis and Coreg. Patient is medically stable will be discharged to skilled nurse facility. Time Spent with Patient Time attestation: Total time managing care of this patient today ____ minutes. Discharge coordination time: Greater than 30 minutes Quality: Safe Use of Opioids Does Pt have an Active Cancer Diagnosis on the Problem List?: No Quality: Stroke Does the patient have a stroke diagnosis?: No Physical Exam Vital Signs: Vital Signs: Last Vital Signs Temp 99.4 F 03/01/23 11:11 Pulse 88 03/01/23 11:11 Resp 20 03/01/23 11:11 BP 143/92 H 03/01/23 11:11 Pulse Ox 99 03/01/23 11:11 O2 Del Method Room Air 03/01/23 11:11 O2 Flow Rate 2 02/27/23 07:50 FiO2 25 02/16/23 10:00 BMI result Body Mass Index 30.2 Const: Other: Constitutional : Awake, interactive, not in distress Neck : Normal inspection, Supple Cardiovascular : RRR, no JVP, no lower extremity edema Respiratory : good bilateral air entry, no crackles, wheezes or rhonchi Gastrointestinal: soft, lax, Normal bowel sounds, Non tender Skin : Warm, Dry Skeletal: Lt BKA with poorly healing wound covered w dressing Neurological : Alert & confused x3, No focal deficit DS: Data Data Completed and Pending Completed studies during hospitalization [Text1]: Procedures Detachment at Left Lower Leg, High, Open Approach (09/15/22) Drainage of Left Foot Skin, External Approach (11/18/21) Excision of Left Foot Skin, External Approach (09/15/22) Excision of Left Foot Subcutaneous Tissue and Fascia, Open Approach (11/18/21) Insertion of Infusion Device into Superior Vena Cava, Percutaneous Approach (08/21/21) Introduction of Anesthetic Agent into Peripheral Nerves and Plexi, Percutaneous Approach (09/15/22) Transfusion of Nonautologous Red Blood Cells into Peripheral Vein, Percutaneous Approach (06/19/22) Labs on day of discharge: Laboratory Results - last 24 hr 02/28/23 02/28/23 02/28/23 15:19 16:09 20:13 Creatinine Estim Creat Clear Calc Estimated GFR POC Glucose 223 H 216 H Random Vancomycin 11.0 L 03/01/23 03/01/23 03/01/23 06:10 07:10 10:50 Creatinine 0.61 Estim Creat Clear Calc 107.4 Estimated GFR > 60 POC Glucose 184 H 177 H Random Vancomycin Discharge Plan Discharge Anticipated Discharge Date/Time: 03/01/23 13:27 Patient Disposition: Xfer SNF Discharge Diagnosis: cardiac arrest, culture negative endocarditis, pneumonia Referrals: [facility] [Outside] - 1 Week Danica Vallejo NP [Primary Care Provider] - 1 Week Discharge Medications: New ceftriaxone 2 gram Recon Soln 2 g IV Q24H Qty: 0 0RF vancomycin 750 mg recon soln 750 mg IV BID Qty: 10 0RF Rx Instructions: end mar 26 losartan 25 mg Tablet 25 mg PO DAILY Qty: 0 0RF Protocol: Hold for SBP< HOLD for SBP < : 90 Continued (DME) gauze sponges 6x6 See Rx Instructions .Route .MEDSUPPLY Qty: 30 2RF Rx Instructions: As directed (DME) Kerlix roll 4.5 inch See Rx Instructions .Route .MEDSUPPLY Qty: 30 2RF Rx Instructions: As directed (DME) AIDAN wraps 6 inch See Rx Instructions .Route .MEDSUPPLY Qty: 10 2RF Rx Instructions: As directed albuterol sulfate 2.5 mg /3 mL (0.083 %) solution for nebulization 1 vial inhalation Q6H PRN (Reason: Wheezing) Qty: 90 0RF albuterol sulfate [Ventolin HFA] 90 mcg/actuation HFA aerosol inhaler 1 puff INHALATION Q4H PRN (Reason: Wheezing) Qty: 1 0RF Incruse Ellipta 62.5 mcg/actuation blister with device 1 puff PO DAILY Qty: 1 0RF glipizide 10 mg tablet 10 mg PO DAILY insulin glargine [Lantus Solostar U-100 Insulin] 100 unit/mL (3 mL) insulin pen 20 unit subcut BID fluticasone propion-salmeterol 115-21 mcg/actuation HFA aerosol inhaler 2 puff INHALATION BID Eliquis 5 mg tablet 5 mg PO BID atorvastatin 80 mg Tablet 80 mg PO BEDTIME 30 Days Qty: 30 0RF carvedilol 3.125 mg Tablet 3.125 mg PO BID 30 Days Qty: 60 0RF Protocol: Hold for SBP/HR < HOLD for SBP < : 90 HOLD for HR < : 60 furosemide 40 mg tablet 40 mg PO BID Qty: 60 2RF clopidogrel 75 mg tablet 75 mg PO DAILY nicotine 21 mg/24 hr patch 24 hour 1 patch topical DAILY oxycodone 5 mg tablet, oral only 5 mg PO Q8H PRN (Reason: pain) Qty: 15 0RF Rx Instructions: Partial Fill upon patient request. Discharge Orders: Discharge Order (Routine); Ordered 03/01/23 Ordered By: Jaren Schrader Diet: pureed Activity on Discharge: As tolerated Stand Alone Forms: Patient Portal Discharge page Care Plan Goals: recovery Health Concerns: culture negative endocarditis, cardiac arrest Plan of Treatment: vanc, rocephin until mar 26, weekly labs, vanc trough, Assessment: see above
--- NOTE | 2023-03-01 14:24 | MHC.SLORD ---
Speech Language Pathology Order Status: Per RN, patient to be d/c today at 4pm. Pt reportedly tolerating current diet recommendations of NDD1 and thin liquids.
--- NOTE | 2023-03-01 14:27 | MHC.SLORD ---
Speech Language Pathology Order Status: Per RN, patient to be d/c today at 4pm. Pt reportedly tolerating current diet recommendations of ground solids (NDD2) and thin liquids.
[2023-03-01 16:56] LABS: Glucose, Whole Blood 188 mg/dL (60-115)
[2023-03-01] MEDS: Acetaminophen 325 MG TABLET 975 MG PO (17:25)
--- NOTE | 2023-03-01 18:27 | PC.NURSE ---
Pt discharged to [facility] via EMS. Called [facility] to give report; was put on hold for approximately 5 minutes, their staff then disconnected the call. Call back attempted with no answer. No call back received.
== END 2023-03-01 18:31 | disposition skilled nursing facility (03) | DRG 193 ==
LOC: HO.ED 23:33 → HO.EDOVER 23:40 → HO.ICU 23:46 → HO.IMC 02-16 14:41
PROVIDERS: Internal Medicine; Internal Medicine Critical Care Medicine; Registered Nurse Emergency; Student in an Organized Health Care Education/Training Program; Admitting Provider Physician Assistant Medical; Emergency Provider Student in an Organized Health Care Education/Training Program; PCP Nurse Practitioner Family; Visit Provider Internal Medicine
PROC: 02HV33Z Insertion of Infusion Device into Superior Vena Cava, Percutaneous Approach (ICD-10-PCS; principal; 2023-02-21 14:00)
DX: I33.0 Acute and subacute infective endocarditis (principal); I46.9 Cardiac arrest, cause unspecified; J96.01 Acute respiratory failure with hypoxia; G92.8 Other toxic encephalopathy; I50.23 Acute on chronic systolic (congestive) heart failure; D69.6 Thrombocytopenia, unspecified; I47.20 Ventricular tachycardia, unspecified; J18.9 Pneumonia, unspecified organism; I25.10 Atherosclerotic heart disease of native coronary artery without angina pectoris; D50.9 Iron deficiency anemia, unspecified; E11.51 Type 2 diabetes mellitus with diabetic peripheral angiopathy without gangrene; F17.210 Nicotine dependence, cigarettes, uncomplicated; T87.81 Dehiscence of amputation stump; J44.0 Chronic obstructive pulmonary disease with (acute) lower respiratory infection; E87.0 Hyperosmolality and hypernatremia; Z95.5 Presence of coronary angioplasty implant and graft; E87.6 Hypokalemia; I48.0 Paroxysmal atrial fibrillation; I11.0 Hypertensive heart disease with heart failure; I49.5 Sick sinus syndrome; I25.5 Ischemic cardiomyopathy; Z71.6 Tobacco abuse counseling; F05 Delirium due to known physiological condition; N17.9 Acute kidney failure, unspecified; T43.595A Adverse effect of other antipsychotics and neuroleptics, initial encounter; Z20.822 Contact with and (suspected) exposure to COVID-19; Z79.4 Long term (current) use of insulin; Z79.01 Long term (current) use of anticoagulants; Z79.02 Long term (current) use of antithrombotics/antiplatelets; Z79.51 Long term (current) use of inhaled steroids; Z79.899 Other long term (current) drug therapy
CPT/HCPCS: 0241U; 36415; 36573; 70450; 70551; 71045; 71046; 71250; 71275; 73560; 74177; 80048; 80053; 80076; 80202; 80307; 81001; 82140; 82272; 82565; 82803; 82947; 83540; 83605; 83735; 83880; 84484; 84702; 85025; 85027; 85610; 86850; 86900; 86901; 86923; 87040; 87086; 87389; 92526; 92610; 93005; 93308; 93971; 94002; 94003; 94640; 94799; 97162; 97163; 97530; 99285; 99291; C1751; C1758; J0171; J0692; J0696; J1170; J1642; J1643; J1940; J2060; J2270; J2405; J2920; J2930; J3010; J3370; J3371; J3475; P9016; P9047; Q9967

== ENCOUNTER 2023-02-13 23:30 | Outpatient (BNV) | payer OTHER, SELFPAY | END 2023-02-14 07:00 | PROVIDERS: Admitting Provider Physician Assistant Medical; Emergency Provider Student in an Organized Health Care Education/Training Program; Visit Provider Internal Medicine Cardiovascular Disease | DX: I36.1 Nonrheumatic tricuspid (valve) insufficiency (principal) | CPT/HCPCS: 93308 ==

== ENCOUNTER → 2023-02-13 23:30 | Outpatient (BNV) | payer OTHER, SELFPAY | PROVIDERS: Admitting Provider Physician Assistant Medical; Emergency Provider Student in an Organized Health Care Education/Training Program; PCP Nurse Practitioner Family; Visit Provider Internal Medicine | DX: E80.6 Other disorders of bilirubin metabolism (principal); I46.9 Cardiac arrest, cause unspecified; I25.5 Ischemic cardiomyopathy; I33.0 Acute and subacute infective endocarditis; T87.89 Other complications of amputation stump; L97.929 Non-pressure chronic ulcer of unspecified part of left lower leg with unspecified severity | CPT/HCPCS: 99223 ==

== ENCOUNTER → 2023-02-13 23:30 | Outpatient (BNV) | payer OTHER, SELFPAY | PROVIDERS: Admitting Provider Physician Assistant Medical; Emergency Provider Student in an Organized Health Care Education/Training Program; Visit Provider Internal Medicine | DX: I33.0 Acute and subacute infective endocarditis (principal); I46.9 Cardiac arrest, cause unspecified; I25.5 Ischemic cardiomyopathy | CPT/HCPCS: 99223; 99233 ==

== ENCOUNTER → 2023-02-13 23:30 | Outpatient (BNV) | payer OTHER, SELFPAY | PROVIDERS: Admitting Provider Physician Assistant Medical; Emergency Provider Student in an Organized Health Care Education/Training Program; Visit Provider Student in an Organized Health Care Education/Training Program | DX: G92.8 Other toxic encephalopathy (principal); I33.0 Acute and subacute infective endocarditis | CPT/HCPCS: 99231; 99232; 99233; 99239 ==

== ENCOUNTER → 2023-02-13 23:30 | Outpatient (BNV) | payer OTHER, SELFPAY | PROVIDERS: Admitting Provider Physician Assistant Medical; Emergency Provider Student in an Organized Health Care Education/Training Program; Visit Provider Physician Assistant Medical | DX: I46.9 Cardiac arrest, cause unspecified (principal); J96.01 Acute respiratory failure with hypoxia; I50.9 Heart failure, unspecified | CPT/HCPCS: 99291; 99292 ==

== ENCOUNTER → 2023-02-13 23:30 | Outpatient (BNV) | payer OTHER, SELFPAY | PROVIDERS: Admitting Provider Physician Assistant Medical; Emergency Provider Student in an Organized Health Care Education/Training Program; PCP Nurse Practitioner Family; Visit Provider Hospitalist | DX: I26.90 Septic pulmonary embolism without acute cor pulmonale (principal); I27.82 Chronic pulmonary embolism; J18.9 Pneumonia, unspecified organism | CPT/HCPCS: 99223 ==

== ENCOUNTER → 2023-02-13 23:30 | Outpatient (BNV) | payer OTHER, SELFPAY | PROVIDERS: Admitting Provider Physician Assistant Medical; Emergency Provider Student in an Organized Health Care Education/Training Program; PCP Nurse Practitioner Family; Visit Provider Registered Nurse | DX: R41.9 Unspecified symptoms and signs involving cognitive functions and awareness (principal) | CPT/HCPCS: 99231 ==

== ENCOUNTER → 2023-02-13 23:30 | Outpatient (BNV) | payer OTHER, SELFPAY | PROVIDERS: Admitting Provider Physician Assistant Medical; Emergency Provider Student in an Organized Health Care Education/Training Program; PCP Nurse Practitioner Family; Visit Provider Surgery | DX: T81.30XA Disruption of wound, unspecified, initial encounter (principal) | CPT/HCPCS: 99222 ==

== ENCOUNTER → 2023-02-13 23:30 | Outpatient (BNV) | payer OTHER, SELFPAY | PROVIDERS: Admitting Provider Physician Assistant Medical; Emergency Provider Student in an Organized Health Care Education/Training Program; PCP Nurse Practitioner Family; Visit Provider Surgery Vascular Surgery | DX: Z89.512 Acquired absence of left leg below knee (principal); T87.89 Other complications of amputation stump; L97.929 Non-pressure chronic ulcer of unspecified part of left lower leg with unspecified severity | CPT/HCPCS: 99222 ==

== ENCOUNTER → 2023-02-13 23:30 | Outpatient (BNV) | payer OTHER, SELFPAY | PROVIDERS: Admitting Provider Physician Assistant Medical; Emergency Provider Student in an Organized Health Care Education/Training Program; Visit Provider Internal Medicine | DX: T87.89 Other complications of amputation stump (principal); T14.8XXA Other injury of unspecified body region, initial encounter; L08.9 Local infection of the skin and subcutaneous tissue, unspecified; I26.90 Septic pulmonary embolism without acute cor pulmonale; I33.0 Acute and subacute infective endocarditis | CPT/HCPCS: 99222 ==